=== PATIENT | female | born 1945 | race Caucasian/White ===

== ENCOUNTER 2018-10-22 17:28 | Inpatient (IN) | payer MEDICARE ==
[2018-10-22] MEDS ORDERED: MORPHINE SULFATE 2 MG/ML SYRINGE IVP STA (18:22)
[2018-10-22] MEDS ORDERED: ONDANSETRON 4 MG/2 ML VIAL IVP STA (18:22)
[2018-10-22 18:50] LABS: INR 1.5 (<1.2); Partial Thromboplastin Time 24.2 sec (22.0-30.0); Prothrombin Time 14.9 sec (9.0-12.0)
[2018-10-22 18:58] LABS: Anisocytosis Slight; Basophils % (A) 0 %; Eosinophils # (A) 0.1 k/uL (0-0.7); Eosinophils % (A) 2 %; HGB 11.7 gm/dL (11.4-16.0); Hypochromasia Moderate; Lymphocytes # (A) 0.9 k/uL (1.0-4.8); Lymphocytes % (A) 23 %; MCH 29.4 pg (25.0-35.0); MCHC 29.2 g/dL (31.0-37.0); MCV 100.7 fL (80.0-100.0); Macrocytosis Slight; Mean Platelet Volume 7.6; Monocytes # (A) 0.5 k/uL (0-1.0); Monocytes % (A) 13 %; Neutrophils # (A) 2.3 k/uL (1.3-7.7); Neutrophils % (A) 60 %; Platelet Count 114 k/uL (150-450); RBC 3.98 m/uL (3.80-5.40); RDW 17.7 % (11.5-15.5); WBC 3.9 k/uL (3.8-10.6)
[2018-10-22 19:01] LABS: Potassium 5.6 mmol/L (3.5-5.1); Total Bilirubin 1.7 mg/dL (0.2-1.3); Total Protein 6.8 g/dL (6.3-8.2)
[2018-10-22 19:12] LABS: Creatine Kinase MB 3.4 ng/mL (0.0-2.4); Troponin I 0.032 ng/mL (0.000-0.034)
[2018-10-22 19:15] LABS: Large Platelets Present
--- NOTE | 2018-10-22 20:08 | CT ---
EXAMINATION TYPE: CT abdomen pelvis wo con DATE OF EXAM: 10/22/2018 COMPARISON: None HISTORY: Right sided abdominal pain, history of liver cancer. CT DLP: 756.8 mGycm Automated exposure control for dose reduction was used. TECHNIQUE: Helical acquisition of images was performed from the lung bases through the pelvis. FINDINGS: Lung bases are clear. There is no pleural effusion. Heart size is normal. There is no pericardial eff usion. Liver is irregular and small. There is a 4 cm area of hypodensity in the subcapsular anterior right l obe of the liver. There is 2.5 cm hypodense area in the lateral right lobe. There is 3.5 cm hypodense mass in the subcapsular posterior right lobe of the liver. Spleen is intact. I see no evidence of a pancreatic mass. There is moderate ascites fluid. Gallbladder is absent. There is no adrenal mass. Kidneys have normal size and contour. There is no hydronephrosis. Ureters a re not dilated. There is no retroperitoneal adenopathy. Bladder distends smoothly. There is no inguin al hernia. There is a right-sided colostomy with parastomal hernia. There is mesenteric edema in the mid abdomen. There is no evidence of a bowel obstruction. I see no bony destructive process. There is spurring in the lumbar spine. IMPRESSION: LIVER IS SOMEWHAT SMALL AND IRREGULAR CONSISTENT WITH CIRRHOSIS. MULTIPLE LIVER MASSES. MODERATE ASCI KARINE. SMALL BOWEL MESENTERIC EDEMA. COLOSTOMY WITH PARASTOMAL HERNIA. NO EVIDENCE OF A BOWEL OBSTRUCTI ON.
[2018-10-22] MEDS ORDERED: IBUPROFEN 400 MG TAB PO PRN (22:20)
[2018-10-22] MEDS ORDERED: NALOXONE 0.4 MG/ML 1 ML VIAL IV PRN (22:20)
[2018-10-22] MEDS ORDERED: ONDANSETRON 4 MG/2 ML VIAL IVP PRN (22:20)
--- NOTE | 2018-10-22 22:20 | ED ---
Abdominal Pain HPI <Isrrael Finley - Last Filed: 10/22/18 22:38> - General Source: patient, family Mode of arrival: ambulatory Limitations: no limitations <Irene Machuca - Last Filed: 10/23/18 02:55> - General Chief Complaint: Abdominal Pain Stated Complaint: Abdominal Pain Time Seen by Provider: 10/22/18 17:44 - History of Present Illness Initial Comments: 73-year-old female with past nuchal history primary liver cancer, Type 2 diabetes, hypertension presenting today for chief complaint of diffuse abdominal pain. Pt states that since she began localized chemotherapy treatment she has been experiencing nausea, vomiting and generalized abdominal pain. Patient states that she was seen yesterday at [facility], for chief complaint of abdominal pain. She states after testing and symptomatic treatment experienced improvement however not resolution of symptoms and was discharged home. Pt states that pain persisted and she came to [facility] for treatment and evaluation. Pt states that the abdominal pain is diffuse , she cannot localize the pain. She admits to diarrhea since the localized chemotherapy. She states that her oncologist out of [facility] will begin systemic chemotherapy on the . Pt does not know the stage or name of treatments used previously. Upon arrival today pt admits to generalized abdominal pain, nausea and vomiting that began with the chemo treatment with no change in characteristic. Patient denies hematemesis, melena or hematochezia, calf pain, hemoptysis, lower extremity swelling. Pt admits to generalilzed weakness and fatigue. Remainder of ROS negative, patient denies any recent fever , chills, sputum production, shortness of breath, chest pain, back pain, numbness or tingling, dysuria or hematuria, constipation, headaches or visual changes, or any other complaints. Upon arrival patient's vital signs within normal limits. (Irene Machuca) - Related Data Home Medications Medication Instructions Recorded Confirmed Furosemide [Lasix] 40 mg PO DAILY 10/23/18 10/23/18 Lactulose [Cephulac] 30 gm PO BID 10/23/18 10/23/18 Metoprolol Tartrate [Lopressor] 12.5 mg PO DAILY 10/23/18 10/23/18 Omeprazole [PriLOSEC] 20 mg PO QID 10/23/18 10/23/18 Ondansetron HCl [Zofran] 8 mg PO PRN 10/23/18 Spironolactone 100 mg PO 10/23/18 Sucralfate [Carafate] 1 gm PO BID 10/23/18 10/23/18 clonazePAM 0.5 mg PO DAILY 10/23/18 10/23/18 Allergies Allergy/AdvReac Type Severity Reaction Status Date / Time GREG Inhibitors Allergy Cough Verified 10/22/18 23:26 amlodipine Allergy Rash/Hives Verified 10/23/18 01:25 oxycodone Allergy Rash/Hives Verified 10/23/18 01:25 Penicillins Allergy Rash/Hives Verified 10/22/18 17:42 hydromorphone [From Dilaudid] AdvReac Unknown Verified 10/22/18 17:42 sodium dodecyclbenzene Allergy Rash/Hives Uncoded 10/23/18 01:25 sulfonate Review of Systems ROS Other: All systems not noted in ROS Statement are negative. <Isrrael Finley - Last Filed: 10/22/18 22:38> ROS Other: All systems not noted in ROS Statement are negative. Constitutional: Denies: fever, chills, night sweats ENT: Denies: ear pain, throat pain Respiratory: Denies: cough, dyspnea, wheezes, hemoptysis, stridor Cardiovascular: Denies: chest pain, palpitations, dyspnea on exertion Endocrine: Reports: fatigue Gastrointestinal: Reports: abdominal pain, nausea, vomiting, diarrhea. Denies: constipation, hematemesis, melena, hematochezia Genitourinary: Denies: urgency, dysuria, frequency, hematuria Musculoskeletal: Denies: back pain Skin: Denies: rash, lesions Neurological: Reports: weakness. Denies: headache, numbness, paresthesias, confusion <Irene Machuca - Last Filed: 10/23/18 02:55> ROS Statement: Those systems with pertinent positive or pertinent negative responses have been documented in the HPI. Past Medical History Past Medical History: Cancer, Diabetes Mellitus, Hypertension, Liver Disease Additional Past Medical History / Comment(s): liver ca History of Any Multi-Drug Resistant Organisms: None Reported Past Surgical History: Bowel Resection Additional Past Surgical History / Comment(s): liver iliostomy Past Psychological History: Anxiety, Depression Smoking Status: Never smoker Past Alcohol Use History: None Reported Past Drug Use History: None Reported <Irene Machuca - Last Filed: 10/23/18 02:55> General Exam <Isrrael Finley - Last Filed: 10/22/18 22:38> Limitations: no limitations <Irene Machuca - Last Filed: 10/23/18 02:55> - General Exam Comments Initial Comments: General: The patient is awake and alert, in no distress, however patient appears uncomfortable Eye: +3 mm pupils are equal, round and reactive to light, extra-ocular movements are intact. No nystagmus. There is normal conjunctiva bilaterally. No signs of icterus. Ears, nose, mouth and throat: There are moist mucous membranes and no oral lesions. Neck: The neck is supple, there is no tenderness or JVD. Cardiovascular: There is a regular rate and rhythm. No murmur, rub or gallop is appreciated. Respiratory: Lungs are clear to auscultation, respirations are non-labored, breath sounds are equal. No wheezes, stridor, rales, or rhonchi. Gastrointestinal: No noted diaphoresis, jaundice, pallor, protecting postures or squirming. Symmetrical pigmentation of abdomen without signs of inflammation, [scars], or striae. Umbilicus mildline, inverted without swelling. No dilated veins. Abdomen contour obese, with noted abdominal distention. No visible masses. No peristalsis, aortic pulsations, or ventral hernia. Bowel sounds audible in all 4 quadrants, unremarkable. No friction rubs or venous hums. No epigastic, hepatic or abdominal bruits. Pt tender to deep palpation of the abdomen, poorly localized, diffuse. Ostomy bag in place, no erythema, or drainage noted. Liver edge, not palpable. Spleen edge, right and left kidney not palpable. Superior bladder margin non-tender. Special Testing: Negative Marion, Rovsing, McBurney, Mayelin, cutaneous hyperesthesia. Iliopsoas and obturator tests negative bilaterally. Negative Heel Jar test/ cristian sign. No CVA tenderness. Digital rectal exam deferred. Negative berumen turners or cullens sign Musculoskeletal: Normal ROM, no tenderness. Strength 5/5. Sensation intact. Pulses equal bilaterally 2+. Neurological: A&O x 3. CN II-XII intact, There are no obvious motor or sensory deficits. Coordination appears grossly intact. Speech is normal. Skin: Skin is warm and dry and no rashes or lesions are noted. Small area of ecchymosis noted on arms. Psychiatric: Cooperative, appropriate mood & affect, normal judgment. (Irene Machuca) Vital Signs 10/22/18 10/22/18 17:36 22:25 Temperature 98.7 F 98.2 F Pulse Rate 61 65 Respiratory 18 20 Rate Blood Pressure 107/79 111/60 O2 Sat by Pulse 100 100 Oximetry Medical Decision Making - Lab Data Result diagrams: 10/22/18 18:30 12 18:30 <Isrrael Finley - Last Filed: 10/22/18 22:38> - Lab Data Result diagrams: 10/22/18 18:30 10/22/18 18:30 <Irene Machuca - Last Filed: 10/23/18 02:55> - Medical Decision Making 73-year-old female history of liver cancer. Patient is presenting with abdominal pain. She is currently following him [facility] for her cancer treatment. She is presenting to this institution because she does not feel the care she was receiving is adequate and she is seeking a second opinion. She's had ongoing abdominal pain for some time. She also complains of generalized weakness and fatigue. She is uncertain of the stage of her cancer, she has received several doses of directed chemotherapy and is awaiting systemic chemotherapy later this month. Patient was offered transfer to [facility] for further evaluation, she declines, she states she would prefer to be admitted to this institution and prefer to follow with oncology here. She is admitted to internal medicine with oncology on consult. Records have been requested and are pending. (Isrrael Finley) 73yo female with history of primary liver cancer, of unknown grade/stage with nonspecific abdominal pain. Abdominal pain revealed diffuse pain. CT no acute findings, cancer redemonstrated. Pt does not feel she is receiving adequate treatment at current institution of care. Pt presents to [place] for second opinion. Pt pain chronic in nature, no acute changes. Correlation with chemotherapy treatments. Transfer to [facility] for further evaluation continuity of care was offered to patient, however pt insists on second opinion and would like admission at this institution. Pt admitted after case discussed in detail with Dr. Finley who evaluated pt [id number]. We requested pt information be transferred, still pending. Pt transferred to floor in stable condition. (Irene Machuca) - Lab Data Lab Results 10/22/18 10/22/18 10/22/18 Range/Units 00:15 18:30 18:30 WBC 3.9 (3.8-10.6) k/uL RBC 3.98 (3.80-5.40) m/uL Hgb 11.7 (11.4-16.0) gm/dL Hct 40.0 (34.0-46.0) % MCV 100.7 H (80.0-100.0) fL MCH 29.4 (25.0-35.0) pg MCHC 29.2 L (31.0-37.0) g/dL RDW 17.7 H (11.5-15.5) % Plt Count 114 L (150-450) k/uL Neutrophils % 60 % Lymphocytes % 23 % Monocytes % 13 % Eosinophils % 2 % Basophils % 0 % Neutrophils # 2.3 (1.3-7.7) k/uL Lymphocytes # 0.9 L (1.0-4.8) k/uL Monocytes # 0.5 (0-1.0) k/uL Eosinophils # 0.1 (0-0.7) k/uL Basophils # 0.0 (0-0.2) k/uL Manual Slide Review Performed Large Platelets Present Hypochromasia Moderate Anisocytosis Slight Macrocytosis Slight PT 14.9 H (9.0-12.0) sec INR 1.5 H (<1.2) APTT 24.2 (22.0-30.0) sec Sodium (137-145) mmol/L Potassium (3.5-5.1) mmol/L Chloride (98-107) mmol/L Carbon Dioxide (22-30) mmol/L Anion Gap mmol/L BUN (7-17) mg/dL Creatinine (0.52-1.04) mg/dL Est GFR (CKD-EPI)AfAm (>60 ml/min/1.73 sqM) Est GFR (CKD-EPI)NonAf (>60 ml/min/1.73 sqM) Glucose (74-99) mg/dL Calcium (8.4-10.2) mg/dL Total Bilirubin (0.2-1.3) mg/dL AST (14-36) U/L ALT (9-52) U/L Alkaline Phosphatase (38-126) U/L Total Creatine Kinase (30-135) U/L CK-MB (CK-2) (0.0-2.4) ng/mL CK-MB (CK-2) Rel Index Troponin I (0.000-0.034) ng/mL Total Protein (6.3-8.2) g/dL Albumin (3.5-5.0) g/dL Amylase (30-110) U/L Lipase (23-300) U/L Urine Color Yellow Urine Appearance Clear (Clear) Urine pH 5.0 (5.0-8.0) Ur Specific [place] 1.013 (1.001-1.035) Urine Protein Negative (Negative) Urine Glucose (UA) Negative (Negative) Urine Ketones Negative (Negative) Urine Blood Negative (Negative) Urine Nitrite Negative (Negative) Urine Bilirubin Negative (Negative) Urine Urobilinogen <2.0 (<2.0) mg/dL Ur Leukocyte Esterase Large H (Negative) Urine RBC 3 (0-5) /hpf Urine WBC 17 H (0-5) /hpf Ur Squamous Epith Cells 1 (0-4) /hpf Urine Bacteria Occasional H (None) /hpf Hyaline Casts 4 H (0-2) /lpf 10/22/18 10/22/18 Range/Units 18:30 18:30 WBC (3.8-10.6) k/uL RBC (3.80-5.40) m/uL Hgb (11.4-16.0) gm/dL Hct (34.0-46.0) % MCV (80.0-100.0) fL MCH (25.0-35.0) pg MCHC (31.0-37.0) g/dL RDW (11.5-15.5) % Plt Count (150-450) k/uL Neutrophils % % Lymphocytes % % Monocytes % % Eosinophils % % Basophils % % Neutrophils # (1.3-7.7) k/uL Lymphocytes # (1.0-4.8) k/uL Monocytes # (0-1.0) k/uL Eosinophils # (0-0.7) k/uL Basophils # (0-0.2) k/uL Manual Slide Review Large Platelets Hypochromasia Anisocytosis Macrocytosis PT (9.0-12.0) sec INR (<1.2) APTT (22.0-30.0) sec Sodium 135 L (137-145) mmol/L Potassium 5.6 H (3.5-5.1) mmol/L Chloride 104 (98-107) mmol/L Carbon Dioxide 23 (22-30) mmol/L Anion Gap 8 mmol/L BUN 33 H (7-17) mg/dL Creatinine 1.39 H (0.52-1.04) mg/dL Est GFR (CKD-EPI)AfAm 44 (>60 ml/min/1.73 sqM) Est GFR (CKD-EPI)NonAf 38 (>60 ml/min/1.73 sqM) Glucose 361 H (74-99) mg/dL Calcium 9.0 (8.4-10.2) mg/dL Total Bilirubin 1.7 H (0.2-1.3) mg/dL AST 41 H (14-36) U/L ALT 44 (9-52) U/L Alkaline Phosphatase 208 H (38-126) U/L Total Creatine Kinase 85 (30-135) U/L CK-MB (CK-2) 3.4 H (0.0-2.4) ng/mL CK-MB (CK-2) Rel Index 4.0 Troponin I 0.032 (0.000-0.034) ng/mL Total Protein 6.8 (6.3-8.2) g/dL Albumin 3.0 L (3.5-5.0) g/dL Amylase 56 (30-110) U/L Lipase 56 (23-300) U/L Urine Color Urine Appearance (Clear) Urine pH (5.0-8.0) Ur Specific [place] (1.001-1.035) Urine Protein (Negative) Urine Glucose (UA) (Negative) Urine Ketones (Negative) Urine Blood (Negative) Urine Nitrite (Negative) Urine Bilirubin (Negative) Urine Urobilinogen (<2.0) mg/dL Ur Leukocyte Esterase (Negative) Urine RBC (0-5) /hpf Urine WBC (0-5) /hpf Ur Squamous Epith Cells (0-4) /hpf Urine Bacteria (None) /hpf Hyaline Casts (0-2) /lpf Disposition <Isrrael Finley - Last Filed: 10/22/18 22:38> Is patient prescribed a controlled substance at d/c from ED?: No Time of Disposition: 22:20 Decision to Admit Reason: Admit from EC Decision Date: 10/22/18 Decision Time: 22:20 <Irene Machuca - Last Filed: 10/23/18 02:55> Clinical Impression: Intractable pain Disposition: ADMITTED IP TO THIS HOSP Condition: Stable
[2018-10-22] MEDS: MORPHINE SULFATE 4 MG/ML SYRINGE IV PRN (23:04)
[2018-10-22] MEDS: SODIUM CHLORIDE 0.9% 1,000 ML IV SCH (23:30)
[2018-10-23 00:28] LABS: Appearance,Urine Clear (Clear); Bacteria,Urine Occasional /hpf; Bilirubin,Urine Negative (Negative); Blood,Urine Negative (Negative); Color,Urine Yellow; Glucose,Urine (UA) Negative (Negative); Hyaline Casts,Urine 4 /lpf (0-2); Ketones,Urine Negative (Negative); Leukocyte Esterase,Urine Large (Negative); Nitrite,Urine Negative (Negative); Protein,Urine Negative (Negative); RBC,Urine 3 /hpf (0-5); Specific Gravity,Urine 1.013 (1.001-1.035); Squamous Epithelial Cell,Urine 1 /hpf (0-4); Urobilinogen,Urine <2.0 mg/dL (<2.0)
[2018-10-23] MEDS: MORPHINE SULFATE 4 MG/ML SYRINGE IV PRN ×5 (03:19→21:09)
[2018-10-23] MEDS ORDERED: FUROSEMIDE 40 MG TAB PO SCH (09:00)
[2018-10-23 10:30] LABS: Albumin 2.6 g/dL (3.5-5.0); Calcium 8.3 mg/dL (8.4-10.2); Potassium 4.8 mmol/L (3.5-5.1); Total Bilirubin 1.9 mg/dL (0.2-1.3); Total Protein 6.2 g/dL (6.3-8.2)
--- NOTE | 2018-10-23 10:36 | P.HPIM ---
History of Present Illness H&P Date: 10/23/18 Chief Complaint: Abdominal pain This is a 73-year-old female patient of Dr. Kurtz. Patient presented to the emergency room with complaints of abdominal pain with nausea vomiting and diarrhea. Patient does have a known past medical history of Primary liver cancer in which she has received last chemotherapy, hypertension, diverticulitis with ileostomy placement and diabetes mellitus. CT of abdomen and pelvis completed showing liver that is somewhat small and irregular consistent with cirrhosis. Multiple liver masses. Moderate ascites. Small bowel mesenteric edema. Colostomy with parastomal hernia. No evidence of bowel obstruction. CT completed showing sinus bradycardia with premature atrial complexes. Left axis deviation. Right bundle branch block. patient has been consulted for oncology services. Morphine has been ordered for pain control. Home meds resumed. Lasix and Aldactone currently on hold due to acute kidney injury. Will reassess lab work. UA positive for leukocyte esterase. Will start Cipro antibiotic. Urine culture ordered. At this time patient denies chest pain or shortness of breath. Patient denies nausea vomiting or diarrhea. Patient denies any urinary burning or frequency. Review of Systems please refer to HPI otherwise unremarkable Past Medical History Past Medical History: Cancer, Diabetes Mellitus, Hypertension, Liver Disease Additional Past Medical History / Comment(s): liver ca History of Any Multi-Drug Resistant Organisms: None Reported Past Surgical History: Bowel Resection Additional Past Surgical History / Comment(s): liver iliostomy Past Anesthesia/Blood Transfusion Reactions: No Reported Reaction Past Psychological History: Anxiety, Depression Smoking Status: Never smoker Past Alcohol Use History: None Reported Past Drug Use History: None Reported - Past Family History Mother History Unknown: Yes Family Medical History: Congestive Heart Failure (CHF) Medications and Allergies Home Medications Medication Instructions Recorded Confirmed Type Furosemide [Lasix] 40 mg PO DAILY 10/23/18 10/23/18 History Lactulose [Cephulac] 30 gm PO BID 10/23/18 10/23/18 History Metoprolol Tartrate [Lopressor] 12.5 mg PO DAILY 10/23/18 10/23/18 History Omeprazole [PriLOSEC] 20 mg PO QID 10/23/18 10/23/18 History Ondansetron HCl [Zofran] 8 mg PO PRN 10/23/18 History Spironolactone 100 mg PO 10/23/18 History Sucralfate [Carafate] 1 gm PO BID 10/23/18 10/23/18 History clonazePAM 0.5 mg PO DAILY 10/23/18 10/23/18 History Allergies Allergy/AdvReac Type Severity Reaction Status Date / Time GREG Inhibitors Allergy Cough Verified 10/23/18 09:23 amlodipine Allergy Rash/Hives Verified 10/23/18 09:23 oxycodone Allergy Rash/Hives Verified 10/23/18 09:23 Penicillins Allergy Rash/Hives Verified 10/23/18 09:23 hydromorphone [From Dilaudid] AdvReac Unknown Verified 10/23/18 09:23 sodium dodecyclbenzene Allergy Rash/Hives Uncoded 10/23/18 01:25 sulfonate Physical Exam Vitals: Vital Signs Temp Pulse Pulse Resp BP BP Pulse Ox 10/23/18 05:00 98.5 F 60 16 100/62 98 10/23/18 00:00 62 10/22/18 22:50 97.6 F 62 14 147/73 99 10/22/18 22:25 98.2 F 65 20 111/60 100 10/22/18 17:36 98.7 F 61 18 107/79 100 Intake and Output 10/22/18 10/23/18 10/23/18 22:59 06:59 14:59 Intake Total 840 Balance 840 Intake: Intake, IV Titration 600 Amount Sodium Chloride 0.9% 1, 600 000 ml @ 75 mls/hr IV . [id number] Rx#:[id number] Oral 240 Other: Voiding Method Toilet # Voids 2 # Bowel Movements 1 Weight 90.718 kg Head normocephalic Neck supple Lungs clear to auscultation bilaterally no wheezing or crackles Heart regular rate and rhythm S1-S2, no rub or gallop Abdomen is soft nontender nondistended positive bowel sounds no hepatosplenomegaly. Ileostomy in place Extremities no edema Neuro alert and orientated to 3 Results CBC & Chem 7: 10/22/18 18:30 10/22/18 18:30 Labs: Abnormal Lab Results - Last 24 Hours (Table) 10/22/18 10/22/18 10/22/18 Range/Units 00:15 18:30 18:30 MCV 100.7 H (80.0-100.0) fL MCHC 29.2 L (31.0-37.0) g/dL RDW 17.7 H (11.5-15.5) % Plt Count 114 L (150-450) k/uL Lymphocytes # 0.9 L (1.0-4.8) k/uL PT 14.9 H (9.0-12.0) sec INR 1.5 H (<1.2) Sodium (137-145) mmol/L Potassium (3.5-5.1) mmol/L BUN (7-17) mg/dL Creatinine (0.52-1.04) mg/dL Glucose (74-99) mg/dL Total Bilirubin (0.2-1.3) mg/dL AST (14-36) U/L Alkaline Phosphatase (38-126) U/L CK-MB (CK-2) (0.0-2.4) ng/mL Albumin (3.5-5.0) g/dL Ur Leukocyte Esterase Large H (Negative) Urine WBC 17 H (0-5) /hpf Urine Bacteria Occasional H (None) /hpf Hyaline Casts 4 H (0-2) /lpf 10/22/18 10/22/18 Range/Units 18:30 18:30 MCV (80.0-100.0) fL MCHC (31.0-37.0) g/dL RDW (11.5-15.5) % Plt Count (150-450) k/uL Lymphocytes # (1.0-4.8) k/uL PT (9.0-12.0) sec INR (<1.2) Sodium 135 L (137-145) mmol/L Potassium 5.6 H (3.5-5.1) mmol/L BUN 33 H (7-17) mg/dL Creatinine 1.39 H (0.52-1.04) mg/dL Glucose 361 H (74-99) mg/dL Total Bilirubin 1.7 H (0.2-1.3) mg/dL AST 41 H (14-36) U/L Alkaline Phosphatase 208 H (38-126) U/L CK-MB (CK-2) 3.4 H (0.0-2.4) ng/mL Albumin 3.0 L (3.5-5.0) g/dL Ur Leukocyte Esterase (Negative) Urine WBC (0-5) /hpf Urine Bacteria (None) /hpf Hyaline Casts (0-2) /lpf Microbiology - Last 24 Hours (Table) 10/22/18 00:15 Urine Culture - Preliminary Urine,Voided Thrombosis Risk Factor Assmnt - Choose All That Apply Each Factor Represents 1 point: Obesity (BMI >25) Each Risk Factor Represents 2 Points: Age 61-74 years Other congenital or acquired thrombophilia - If yes, enter type in comment: No Thrombosis Risk Factor Assessment Total Risk Factor Score: 3 Thrombosis Risk Factor Assessment Level: Moderate Risk Assessment and Plan Assessment: 1. Abdominal pain with nausea vomiting diarrhea. C. diff negative. Abdominal pelvis CT showing a liver that is somewhat small and irregular consistent with cirrhosis. Multiple liver masses. Moderate ascites. Small bowel mesenteric edema. Colostomy with parastomal hernia. No evidence of bowel obstruction. Stool culture has been ordered. currently on morphine for pain control 2. Urinary tract infection with positive for leukocyte esterase. Patient started on Cipro. Urine culture ordered 3. Acute kidney injury. Initial creatinine 1.39 and bun 33. Labs have been reordered 4. Hyperkalemia. Potassium 5.6. Will recheck and correct if needed 5. Primary liver cancer. Patient has been getting chemotherapy to [facility] but is planning to switch to local oncologist. Dr. Yadav has been consulted 6. Essential hypertension. Home meds resumed with parameters. Aldactone currently on hold due to hyperkalemia and acute kidney injury 7. Anemia. Elevated MCV. Will order folate and B12 levels 8. Diabetes mellitus. She does not currently take any diabetes medication. Blood sugars elevated 200s sliding scale insulin has been ordered including an A1c will be ordered DVT prophylaxis heparin. GI prophylaxis Protonix. Time with Patient: Greater than 30 (Greater than 60% of the total time spent in counseling and coordination of care. I performed an examination of the patient and discussed their management with the Nurse Practitioner. I have reviewed the Nurse Practitioner's notes and agree with the documented findings and plan of care)
[2018-10-23 10:53] LABS: Anisocytosis Slight; Basophils % (A) 0 %; Eosinophils # (A) 0.1 k/uL (0-0.7); Eosinophils % (A) 4 %; HGB 11.8 gm/dL (11.4-16.0); Hypochromasia Slight; Lymphocytes # (A) 0.9 k/uL (1.0-4.8); Lymphocytes % (A) 29 %; MCH 30.4 pg (25.0-35.0); MCHC 31.8 g/dL (31.0-37.0); Macrocytosis Slight; Mean Platelet Volume 8.6; Monocytes # (A) 0.4 k/uL (0-1.0); Monocytes % (A) 11 %; Neutrophils # (A) 1.7 k/uL (1.3-7.7); Neutrophils % (A) 54 %; RBC 3.88 m/uL (3.80-5.40); RDW 17.6 % (11.5-15.5); WBC 3.2 k/uL (3.8-10.6)
[2018-10-23 10:56] LABS: MCV 95.4 fL (80.0-100.0)
[2018-10-23 10:58] LABS: Glucose,Whole Blood 307 mg/dL (75-99)
[2018-10-23 12:11] LABS: Platelet Count 99 k/uL (150-450)
[2018-10-23] MEDS: METOPROLOL TARTRATE 12.5 MG TAB PO SCH (12:13)
[2018-10-23] MEDS: PANTOPRAZOLE 40 MG TABLET PO SCH ×2 (12:13→16:02)
[2018-10-23] MEDS: CIPROFLOXACIN HCL 500 MG TAB PO SCH (12:13)
[2018-10-23] MEDS: clonazePAM 0.5 MG TAB PO SCH (12:14)
[2018-10-23] MEDS: LACTULOSE 20 GM/30 ML CUP PO SCH ×2 (12:14→21:09)
[2018-10-23] MEDS: SUCRALFATE 1 GM TAB PO SCH ×2 (12:15→21:09)
--- NOTE | 2018-10-23 12:16 | P.CONS ---
History of Present Illness - Reason for Consult Consult date: 10/23/18 Liver lesions Requesting physician: Artemio Lea - Chief Complaint Abdominal pain - History of Present Illness Ms. Keenan is a very pleasant 73-year-old female with history of primary liver cancer diagnosed in 2010 as well as a history of diabetes and cirrhosis and colectomy with ileostomy in 2010 for diverticulitis, who is here for abdominal pain. She states that she was diagnosed with a primary liver malignancy back in 2010. Has not seen a medical oncologist in the past however has been seeing a physician for chemo embolization treatments at [facility]. She received a chemoembolization treatment in 2010 upon diagnosis, as well as in 2014 and more recently on 10/03/18. She was feeling well however started having abdominal discomfort in the right upper quadrant mostly about a week ago. Went to [facility] however she was not satisfied with her care and was discharged when her pain improved however recurred the next day. She ended up coming here and is wanting to start to follow with medical oncology team here. She has not received any systemic treatment for her malignancy. Records have been requested but not obtained yet. She also has some mild nausea but otherwise is doing well without any fevers, vomiting, diarrhea, fatigue, or weight loss. No other significant complaints. No smoking, alcohol, or drug use. No known family history of malignancy. Review of Systems All systems: negative Constitutional: Reports as per HPI Past Medical History Past Medical History: Cancer, Diabetes Mellitus, Hypertension, Liver Disease Additional Past Medical History / Comment(s): liver ca History of Any Multi-Drug Resistant Organisms: None Reported Past Surgical History: Bowel Resection Additional Past Surgical History / Comment(s): liver iliostomy Past Anesthesia/Blood Transfusion Reactions: No Reported Reaction Past Psychological History: Anxiety, Depression Smoking Status: Never smoker Past Alcohol Use History: None Reported Past Drug Use History: None Reported - Past Family History Mother History Unknown: Yes Family Medical History: Congestive Heart Failure (CHF) Medications and Allergies Home Medications Medication Instructions Recorded Confirmed Type Furosemide [Lasix] 40 mg PO DAILY 10/23/18 10/23/18 History Lactulose [Cephulac] 30 gm PO BID 10/23/18 10/23/18 History Metoprolol Tartrate [Lopressor] 12.5 mg PO DAILY 10/23/18 10/23/18 History Omeprazole [PriLOSEC] 20 mg PO QID 10/23/18 10/23/18 History Ondansetron HCl [Zofran] 8 mg PO PRN 10/23/18 History Spironolactone 100 mg PO 10/23/18 History Sucralfate [Carafate] 1 gm PO BID 10/23/18 10/23/18 History clonazePAM 0.5 mg PO DAILY 10/23/18 10/23/18 History Allergies Allergy/AdvReac Type Severity Reaction Status Date / Time GREG Inhibitors Allergy Cough Verified 10/23/18 09:23 amlodipine Allergy Rash/Hives Verified 10/23/18 09:23 oxycodone Allergy Rash/Hives Verified 10/23/18 09:23 Penicillins Allergy Rash/Hives Verified 10/23/18 09:23 hydromorphone [From Dilaudid] AdvReac Unknown Verified 10/23/18 09:23 sodium dodecyclbenzene Allergy Rash/Hives Uncoded 10/23/18 01:25 sulfonate Physical Exam Vitals: Vital Signs Temp Pulse Pulse Resp BP BP Pulse Ox 10/23/18 05:00 98.5 F 60 16 100/62 98 10/23/18 00:00 62 10/22/18 22:50 97.6 F 62 14 147/73 99 10/22/18 22:25 98.2 F 65 20 111/60 100 10/22/18 17:36 98.7 F 61 18 107/79 100 Intake and Output 10/22/18 10/23/18 10/23/18 22:59 06:59 14:59 Intake Total 840 Balance 840 Intake: Intake, IV Titration 600 Amount Sodium Chloride 0.9% 1, 600 000 ml @ 75 mls/hr IV . [id number] [facility] Rx#:[id number] Oral 240 Other: Voiding Method Toilet # Voids 2 # Bowel Movements 1 Weight 90.718 kg General: In no acute distress. HEENT: Mucosa moist. Neck: Neck supple. Lymph: No cervical/supraclavicular LAD. Lungs: CTA-B without wheezing or rhonchi. Heart: RRR. No LE edema. Abdomen: Soft, nondistended, with positive bowel sounds. Ileostomy. Slight tenderness in RUQ without guarding or rigidity. Fluid shift with bulging flanks. MSK: 4/4 strength in all 4 extremities. Neuro: Alert and oriented 3. No obvious gross neurologic deficits. Skin: No jaundice or rash. Psych: Appropriate affect. Results CBC & Chem 7: 10/23/18 09:58 10/23/18 09:58 Labs: Abnormal Lab Results - Last 24 Hours (Table) 10/22/18 10/22/18 10/22/18 Range/Units 00:15 18:30 18:30 WBC (3.8-10.6) k/uL MCV 100.7 H (80.0-100.0) fL MCHC 29.2 L (31.0-37.0) g/dL RDW 17.7 H (11.5-15.5) % Plt Count 114 L (150-450) k/uL Lymphocytes # 0.9 L (1.0-4.8) k/uL PT 14.9 H (9.0-12.0) sec INR 1.5 H (<1.2) Sodium (137-145) mmol/L Potassium (3.5-5.1) mmol/L Chloride (98-107) mmol/L Carbon Dioxide (22-30) mmol/L BUN (7-17) mg/dL Creatinine (0.52-1.04) mg/dL Glucose (74-99) mg/dL POC Glucose (mg/dL) (75-99) mg/dL Calcium (8.4-10.2) mg/dL Total Bilirubin (0.2-1.3) mg/dL AST (14-36) U/L Alkaline Phosphatase (38-126) U/L CK-MB (CK-2) (0.0-2.4) ng/mL Total Protein (6.3-8.2) g/dL Albumin (3.5-5.0) g/dL Ur Leukocyte Esterase Large H (Negative) Urine WBC 17 H (0-5) /hpf Urine Bacteria Occasional H (None) /hpf Hyaline Casts 4 H (0-2) /lpf 10/22/18 10/22/18 10/23/18 Range/Units 18:30 18:30 09:58 WBC 3.2 L (3.8-10.6) k/uL MCV (80.0-100.0) fL MCHC (31.0-37.0) g/dL RDW 17.6 H (11.5-15.5) % Plt Count (150-450) k/uL Lymphocytes # (1.0-4.8) k/uL PT (9.0-12.0) sec INR (<1.2) Sodium 135 L (137-145) mmol/L Potassium 5.6 H (3.5-5.1) mmol/L Chloride (98-107) mmol/L Carbon Dioxide (22-30) mmol/L BUN 33 H (7-17) mg/dL Creatinine 1.39 H (0.52-1.04) mg/dL Glucose 361 H (74-99) mg/dL POC Glucose (mg/dL) (75-99) mg/dL Calcium (8.4-10.2) mg/dL Total Bilirubin 1.7 H (0.2-1.3) mg/dL AST 41 H (14-36) U/L Alkaline Phosphatase 208 H (38-126) U/L CK-MB (CK-2) 3.4 H (0.0-2.4) ng/mL Total Protein (6.3-8.2) g/dL Albumin 3.0 L (3.5-5.0) g/dL Ur Leukocyte Esterase (Negative) Urine WBC (0-5) /hpf Urine Bacteria (None) /hpf Hyaline Casts (0-2) /lpf 18 10/23/18 Range/Units 09:58 10:56 WBC (3.8-10.6) k/uL MCV (80.0-100.0) fL MCHC (31.0-37.0) g/dL RDW (11.5-15.5) % Plt Count (150-450) k/uL Lymphocytes # (1.0-4.8) k/uL PT (9.0-12.0) sec INR (<1.2) Sodium 135 L (137-145) mmol/L Potassium (3.5-5.1) mmol/L Chloride 109 H (98-107) mmol/L Carbon Dioxide 20 L (22-30) mmol/L BUN 27 H (7-17) mg/dL Creatinine (0.52-1.04) mg/dL Glucose 215 H (74-99) mg/dL POC Glucose (mg/dL) 307 H (75-99) mg/dL Calcium 8.3 L (8.4-10.2) mg/dL Total Bilirubin 1.9 H (0.2-1.3) mg/dL AST 52 H (14-36) U/L Alkaline Phosphatase 178 H (38-126) U/L CK-MB (CK-2) (0.0-2.4) ng/mL Total Protein 6.2 L (6.3-8.2) g/dL Albumin 2.6 L (3.5-5.0) g/dL Ur Leukocyte Esterase (Negative) Urine WBC (0-5) /hpf Urine Bacteria (None) /hpf Hyaline Casts (0-2) /lpf Microbiology - Last 24 Hours (Table) 10/22/18 00:15 Urine Culture - Preliminary Urine,Voided CT scan - abdomen: report reviewed CT scan - pelvis: report reviewed Assessment and Plan Assessment: 1. Liver lesions with history of primary liver cancer per pt and family 2. Ileostomy due to diverticulitis per pt and family, no malignancy found 3. Abdominal pain 4. MORENA, improving 5. UTI, on oral antibiotics 6. Mild thrombocytopenia, likely due to cirrhosis 7. Cirrhosis on CT Plan: Ms. Keenan is a very pleasant 73-year-old female with a history per patient and family ileostomy due to diverticulitis (pt and family state no cancer was found in the colon; in 2010), cirrhosis (denies any alcohol use in the past, ?BAITSTA?), DM, and primary liver cancer diagnosed in 2010, status post chemoembolization 3 , 2010, 2014, and most recently on 10/03/18. Here for increased abdominal pain and nausea for the past week. CT of the abdomen and pelvis in the ER shows multiple liver lesions (4cm lesion, 2.5cm lesion, and 3cm lesion). Admitted for pain control and oncology evaluation. Workup also revealed a creatinine of 1.4, potassium 5.8, and possible UTI on UA. Creatinine and potassium improved with hydration in patient started on oral antibiotics for a possible UTI. Records were requested however not yet obtained. Patient wants to follow with oncology team here. For now we'll plan on pain control. Will work on obtaining records. It does not sound like she has been on any systemic therapy although currently does not seem to be a candidate for further chemoembolization due to multiple of her lesions. Will plan on obtaining tumor markers and consider CT chest to complete staging work up if not done per records. We'll plan on an ultrasound- guided paracentesis per patient request. She does have signs of possible ascites on exam although CT does not comment on presence or absence of ascites. Further recommendations to follow. Discussed plan with the patient and her family at bedside, including son and [id number]. All of their questions were answered and they were agreeable to the plan.
[2018-10-23] MEDS: INSULIN ASPART 100 UNIT/ML 1 ML 10 ML VIAL SQ SCH ×3 (12:33→21:08)
[2018-10-23 16:49] LABS: Glucose,Whole Blood 283 mg/dL (75-99)
[2018-10-23 20:15] LABS: Glucose,Whole Blood 237 mg/dL (75-99)
[2018-10-23] MEDS: HEPARIN SODIUM,PORCINE 5,000 UNIT/ML 1 ML VIAL SQ SCH (21:08)
[2018-10-23] MEDS: SODIUM CHLORIDE 0.9% 1,000 ML IV SCH (22:59)
[2018-10-24] MEDS: MORPHINE SULFATE 4 MG/ML SYRINGE IV PRN ×3 (01:45→11:11)
[2018-10-24] MEDS: SODIUM CHLORIDE 0.9% 1,000 ML IV SCH ×3 (03:19→23:59)
[2018-10-24 07:03] LABS: Glucose,Whole Blood 211 mg/dL (75-99)
[2018-10-24 08:22] LABS: Anisocytosis Slight; Basophils % (A) 0 %; Eosinophils # (A) 0.2 k/uL (0-0.7); Eosinophils % (A) 6 %; HCT 37.1 % (34.0-46.0); HGB 11.5 gm/dL (11.4-16.0); Hypochromasia Moderate; Lymphocytes # (A) 0.9 k/uL (1.0-4.8); Lymphocytes % (A) 25 %; MCH 29.9 pg (25.0-35.0); MCV 96.6 fL (80.0-100.0); Macrocytosis Slight; Mean Platelet Volume 8.2; Monocytes # (A) 0.3 k/uL (0-1.0); Monocytes % (A) 10 %; Neutrophils % (A) 57 %; RBC 3.84 m/uL (3.80-5.40); RDW 17.3 % (11.5-15.5); WBC 3.6 k/uL (3.8-10.6)
[2018-10-24 08:34] LABS: Platelet Count 86 k/uL (150-450)
[2018-10-24] MEDS: SUCRALFATE 1 GM TAB PO SCH ×2 (08:43→20:16)
[2018-10-24] MEDS: METOPROLOL TARTRATE 12.5 MG TAB PO SCH (08:43)
[2018-10-24] MEDS: LACTULOSE 20 GM/30 ML CUP PO SCH ×2 (08:43→20:12)
[2018-10-24 08:44] LABS: Albumin 2.6 g/dL (3.5-5.0); Calcium 8.2 mg/dL (8.4-10.2); Potassium 4.6 mmol/L (3.5-5.1); Total Bilirubin 1.5 mg/dL (0.2-1.3); Total Protein 6.1 g/dL (6.3-8.2)
[2018-10-24] MEDS: HEPARIN SODIUM,PORCINE 5,000 UNIT/ML 1 ML VIAL SQ SCH (08:44)
[2018-10-24] MEDS: FUROSEMIDE 40 MG TAB PO SCH (08:44)
[2018-10-24] MEDS: PANTOPRAZOLE 40 MG TABLET PO SCH ×2 (08:44→17:44)
[2018-10-24] MEDS: CIPROFLOXACIN HCL 500 MG TAB PO SCH (08:44)
[2018-10-24] MEDS: clonazePAM 0.5 MG TAB PO SCH (08:48)
[2018-10-24] MEDS: INSULIN ASPART 100 UNIT/ML 1 ML 10 ML VIAL SQ SCH ×2 (08:48→13:32)
[2018-10-24 10:16] LABS: Hemoglobin A1C 7.5 % (4.0-6.0)
[2018-10-24 11:38] LABS: Glucose,Whole Blood 359 mg/dL (75-99)
--- NOTE | 2018-10-24 11:41 | P.PN ---
Subjective Progress Note Date: 10/24/18 This is a 73-year-old female patient of Dr. Kurtz. Patient presented to the emergency room with complaints of abdominal pain with nausea vomiting and diarrhea. Patient does have a known past medical history of Primary liver cancer in which she has received last chemotherapy, hypertension, diverticulitis with ileostomy placement and diabetes mellitus. CT of abdomen and pelvis completed showing liver that is somewhat small and irregular consistent with cirrhosis. Multiple liver masses. Moderate ascites. Small bowel mesenteric edema. Colostomy with parastomal hernia. No evidence of bowel obstruction. CT completed showing sinus bradycardia with premature atrial complexes. Left axis deviation. Right bundle branch block. patient has been consulted for oncology services. Morphine has been ordered for pain control. Home meds resumed. Lasix and Aldactone currently on hold due to acute kidney injury. Will reassess lab work. UA positive for leukocyte esterase. Will start Cipro antibiotic. Urine culture ordered. At this time patient denies chest pain or shortness of breath. Patient denies nausea vomiting or diarrhea. Patient denies any urinary burning or frequency. On 10/24/2018 patient is currently resting in bed. Patient was seen by oncology services. Patient remains on Cipro for UTI. Patient is still complaining of some abdominal discomfort. At this time patient denies chest pain or shortness of breath. Patient denies nausea vomiting or diarrhea. Patient denies any urinary burning or frequency Objective - Vital Signs Vital signs: Vital Signs Temp 98.3 F 10/24/18 05:00 Pulse 63 10/24/18 08:00 Resp 18 10/24/18 08:00 BP 99/50 10/24/18 05:00 Pulse Ox 96 10/24/18 05:00 Intake & Output 10/23/18 10/24/18 10/24/18 18:59 06:59 18:59 Other: Voiding Method Toilet Toilet # Voids 2 - Exam Head normocephalic Neck supple Lungs clear to auscultation bilaterally no wheezing or crackles Heart regular rate and rhythm S1-S2, no rub or gallop Abdomen is soft nontender nondistended positive bowel sounds no hepatosplenomegaly. Right lower quadrant ileostomy in place no signs of erythema. Some tenderness to palpation around stoma Extremities no edema Neuro alert and orientated to 3 - Labs CBC & Chem 7: 10/24/18 07:51 10/24/18 07:51 Labs: Abnormal Lab Results - Last 24 Hours (Table) 10/22/18 10/23/18 10/23/18 Range/Units 18:30 09:58 09:58 WBC 3.2 L (3.8-10.6) k/uL RDW 17.6 H (11.5-15.5) % Plt Count 99 L (150-450) k/uL Lymphocytes # 0.9 L (1.0-4.8) k/uL Sodium (137-145) mmol/L Carbon Dioxide (22-30) mmol/L Glucose (74-99) mg/dL POC Glucose (mg/dL) (75-99) mg/dL Hemoglobin A1c 7.5 H (4.0-6.0) % Calcium (8.4-10.2) mg/dL Total Bilirubin (0.2-1.3) mg/dL AST (14-36) U/L ALT (9-52) U/L Alkaline Phosphatase (38-126) U/L Total Protein (6.3-8.2) g/dL Albumin (3.5-5.0) g/dL Vitamin B12 1270.0 H (200.0-944.0) pg/mL 10/23/18 10/23/18 10/24/18 Range/Units 16:39 20:14 07:02 WBC (3.8-10.6) k/uL RDW (11.5-15.5) % Plt Count (150-450) k/uL Lymphocytes # (1.0-4.8) k/uL Sodium (137-145) mmol/L Carbon Dioxide (22-30) mmol/L Glucose (74-99) mg/dL POC Glucose (mg/dL) 283 H 237 H 211 H (75-99) mg/dL Hemoglobin A1c (4.0-6.0) % Calcium (8.4-10.2) mg/dL Total Bilirubin (0.2-1.3) mg/dL AST (14-36) U/L ALT (9-52) U/L Alkaline Phosphatase (38-126) U/L Total Protein (6.3-8.2) g/dL Albumin (3.5-5.0) g/dL Vitamin B12 (200.0-944.0) pg/mL 10/24/18 10/24/18 Range/Units 07:51 07:51 WBC 3.6 L (3.8-10.6) k/uL RDW 17.3 H (11.5-15.5) % Plt Count 86 L (150-450) k/uL Lymphocytes # 0.9 L (1.0-4.8) k/uL Sodium 133 L (137-145) mmol/L Carbon Dioxide 21 L (22-30) mmol/L Glucose 234 H (74-99) mg/dL POC Glucose (mg/dL) (75-99) mg/dL Hemoglobin A1c (4.0-6.0) % Calcium 8.2 L (8.4-10.2) mg/dL Total Bilirubin 1.5 H (0.2-1.3) mg/dL AST 48 H (14-36) U/L ALT 53 H (9-52) U/L Alkaline Phosphatase 219 H (38-126) U/L Total Protein 6.1 L (6.3-8.2) g/dL Albumin 2.6 L (3.5-5.0) g/dL Vitamin B12 (200.0-944.0) pg/mL Microbiology - Last 24 Hours (Table) 10/23/18 18:00 Stool Culture - Preliminary Stool 10/22/18 00:15 Urine Culture - Preliminary Urine,Voided Assessment and Plan Assessment: 1. Abdominal pain with nausea vomiting diarrhea. C. diff negative. Abdominal pelvis CT showing a liver that is somewhat small and irregular consistent with cirrhosis. Multiple liver masses. Moderate ascites. Small bowel mesenteric edema. Colostomy with parastomal hernia. No evidence of bowel obstruction. Stool culture has been ordered. currently on morphine for pain control 2. Urinary tract infection with positive for leukocyte esterase. Patient started on Cipro. Urine culture ordered 3. Acute kidney injury. Initial creatinine 1.39 and bun 33. Labs have been reordered. Resolved 4. Hyperkalemia. Potassium 5.6. Will recheck and correct if needed. Potassium 4.6 5. Primary liver cancer. Patient has been getting chemotherapy to [facility] but is planning to switch to local oncologist. Per oncology services obtaining records from plan: Plan on obtaining tumor markers and considering CT chest to complete staging workup 6. Essential hypertension. Home meds resumed with parameters. Aldactone currently on hold due to hyperkalemia and acute kidney injury 7. Anemia. Elevated MCV. Will order folate and B12 levels. I'm and B12 level elevated at 1270 8. Diabetes mellitus. She does not currently take any diabetes medication. Blood sugars elevated 200s sliding scale insulin has been ordered including an A1c will be ordered. Hemoglobin A1c 7.5 9. Thrombocytopenia platelets dropping to 86. DVT prophylaxis DC'd will order SCDs at this time. Oncology services are following 10. Diarrhea. C. diff negative. Stool cultures ordered 11. Elevated liver enzymes likely due to liver cancer. Alkaline phosphatase 219, ALT 53 and AST 48 total bilirubin also elevated at 1.5. Oncology services are following DVT prophylaxis SCDs due to thrombocythemia. GI prophylaxis Protonix. I performed an examination of the patient and discussed their management with the Nurse Practitioner. I have reviewed the Nurse Practitioner's notes and agree with the documented findings and plan of care
[2018-10-24] MEDS ORDERED: MORPHINE SULFATE 2 MG/ML SYRINGE IV PRN (14:49)
[2018-10-24 16:46] LABS: Glucose,Whole Blood 297 mg/dL (75-99)
[2018-10-24 17:29] LABS: Alpha Fetoprotein, Tumor Mkr <2.5 ng/mL (0.0-7.9)
[2018-10-24] MEDS: DICYCLOMINE 10 MG CAP PO SCH ×2 (17:43→20:17)
--- NOTE | 2018-10-24 18:06 | P.PN ---
Subjective Progress Note Date: 10/24/18 Principal diagnosis: Intractable abd pain Pt seen today in f/u, he abd pain is a little better now that her stoma is putting out more stool, no blood, cramping, dark urine or itching at this time. She is tolerating oral intake Objective - Vital Signs Vital signs: Vital Signs Temp 98 F 10/24/18 12:04 Pulse 54 L 10/24/18 16:00 Resp 16 10/24/18 16:00 BP 108/54 10/24/18 12:04 Pulse Ox 100 10/24/18 12:04 Intake & Output 10/23/18 10/24/18 10/24/18 18:59 06:59 18:59 Intake Total 640 Balance 640 Intake: Intake, IV Titration 640 Amount Sodium Chloride 0.9% 1, 640 000 ml @ 75 mls/hr IV . [id number] [facility] Rx#:[id number] Other: Voiding Method Toilet Toilet # Voids 2 - Constitutional General appearance: Present: cooperative, no acute distress, obese - EENT Eyes: Present: anicteric sclerae, EOMI ENT: Present: hearing grossly normal, normal oropharynx - Respiratory Respiratory: bilateral: CTA - Cardiovascular Rhythm: regular Heart sounds: normal: S1, S2 - Peripheral edema leg Peripheral Edema: bilateral: None - Gastrointestinal General gastrointestinal: Present: normal bowel sounds, soft Localized gastrointestinal: tender: RUQ - Neurologic Neurologic: Present: CNII-XII intact - Musculoskeletal Musculoskeletal: Present: generalized weakness, strength equal bilaterally - Psychiatric Psychiatric: Present: A&O x's 3, appropriate affect, intact judgment & insight - Labs CBC & Chem 7: 10/24/18 07:51 10/24/18 07:51 Labs: Abnormal Lab Results - Last 24 Hours (Table) 10/22/18 10/23/18 10/23/18 Range/Units 18:30 09:58 20:14 WBC (3.8-10.6) k/uL RDW (11.5-15.5) % Plt Count (150-450) k/uL Lymphocytes # (1.0-4.8) k/uL Sodium (137-145) mmol/L Carbon Dioxide (22-30) mmol/L Glucose (74-99) mg/dL POC Glucose (mg/dL) 237 H (75-99) mg/dL Hemoglobin A1c 7.5 H (4.0-6.0) % Calcium (8.4-10.2) mg/dL Total Bilirubin (0.2-1.3) mg/dL AST (14-36) U/L ALT (9-52) U/L Alkaline Phosphatase (38-126) U/L Total Protein (6.3-8.2) g/dL Albumin (3.5-5.0) g/dL Vitamin B12 1270.0 H (200.0-944.0) pg/mL 10/24/18 10/24/18 10/24/18 Range/Units 07:02 07:51 07:51 WBC 3.6 L (3.8-10.6) k/uL RDW 17.3 H (11.5-15.5) % Plt Count 86 L (150-450) k/uL Lymphocytes # 0.9 L (1.0-4.8) k/uL Sodium 133 L (137-145) mmol/L Carbon Dioxide 21 L (22-30) mmol/L Glucose 234 H (74-99) mg/dL POC Glucose (mg/dL) 211 H (75-99) mg/dL Hemoglobin A1c (4.0-6.0) % Calcium 8.2 L (8.4-10.2) mg/dL Total Bilirubin 1.5 H (0.2-1.3) mg/dL AST 48 H (14-36) U/L ALT 53 H (9-52) U/L Alkaline Phosphatase 219 H (38-126) U/L Total Protein 6.1 L (6.3-8.2) g/dL Albumin 2.6 L (3.5-5.0) g/dL Vitamin B12 (200.0-944.0) pg/mL 10/24/18 10/24/18 Range/Units 11:36 16:45 WBC (3.8-10.6) k/uL RDW (11.5-15.5) % Plt Count (150-450) k/uL Lymphocytes # (1.0-4.8) k/uL Sodium (137-145) mmol/L Carbon Dioxide (22-30) mmol/L Glucose (74-99) mg/dL POC Glucose (mg/dL) 359 H 297 H (75-99) mg/dL Hemoglobin A1c (4.0-6.0) % Calcium (8.4-10.2) mg/dL Total Bilirubin (0.2-1.3) mg/dL AST (14-36) U/L ALT (9-52) U/L Alkaline Phosphatase (38-126) U/L Total Protein (6.3-8.2) g/dL Albumin (3.5-5.0) g/dL Vitamin B12 (200.0-944.0) pg/mL Microbiology - Last 24 Hours (Table) 10/23/18 18:00 Stool Culture - Preliminary Stool Assessment and Plan (1) Hepatocellular carcinoma Narrative/Plan: Pt states that she would like to transfer her cancer care here. I have requested her medical records, scans and pathology reports. Pt asked what stage she is and I explained that I would not be able to tell her that until her medical records are reviewed. Will request additional studies as needed Current Visit: Yes Status: Acute Priority: High Code(s): C22.0 - LIVER CELL CARCINOMA SNOMED Code(s): 654932035 (2) Intractable pain Narrative/Plan: Much improved after BM. Will convert IV morphine to oral IR and reevaluate in AM Meds to prevent constipation ordered. Pt educated on treating constipation sooner then later Current Visit: Yes Status: Acute Priority: Medium Code(s): R52 - PAIN, UNSPECIFIED SNOMED Code(s): 69624282
[2018-10-24] MEDS: INSULIN REGULAR 100 UNIT/ML VIAL SQ SCH (18:15)
[2018-10-24] MEDS: INSULIN NPH 300 UNIT/3 ML VIAL SQ SCH (20:15)
[2018-10-24] MEDS: MORPHINE SULFATE ER 15 MG TABLET PO SCH (20:15)
[2018-10-24 20:16] LABS: Glucose,Whole Blood 370 mg/dL (75-99)
[2018-10-25 07:15] LABS: Glucose,Whole Blood 310 mg/dL (75-99)
[2018-10-25 07:39] LABS: Anisocytosis Slight; Basophils % (A) 0 %; Eosinophils # (A) 0.1 k/uL (0-0.7); Eosinophils % (A) 4 %; HCT 34.3 % (34.0-46.0); HGB 10.6 gm/dL (11.4-16.0); Hypochromasia Moderate; Lymphocytes # (A) 0.8 k/uL (1.0-4.8); Lymphocytes % (A) 24 %; MCH 30.1 pg (25.0-35.0); MCV 97.2 fL (80.0-100.0); Macrocytosis Slight; Mean Platelet Volume 8.1; Monocytes # (A) 0.4 k/uL (0-1.0); Monocytes % (A) 12 %; Neutrophils # (A) 1.8 k/uL (1.3-7.7); Neutrophils % (A) 58 %; RBC 3.52 m/uL (3.80-5.40); RDW 17.1 % (11.5-15.5); WBC 3.2 k/uL (3.8-10.6)
[2018-10-25] MEDS: METOPROLOL TARTRATE 12.5 MG TAB PO SCH (07:49)
[2018-10-25] MEDS: FUROSEMIDE 40 MG TAB PO SCH (07:49)
[2018-10-25] MEDS: MORPHINE SULFATE ER 15 MG TABLET PO SCH ×2 (07:49→21:05)
[2018-10-25] MEDS: MAGNESIUM OXIDE 400 MG TAB PO SCH (07:49)
[2018-10-25] MEDS: PANTOPRAZOLE 40 MG TABLET PO SCH ×2 (07:49→17:37)
[2018-10-25] MEDS: SPIRONOLACTONE 25 MG TAB PO SCH (07:50)
[2018-10-25] MEDS: clonazePAM 0.5 MG TAB PO SCH (07:50)
[2018-10-25 07:51] LABS: Albumin 2.3 g/dL (3.5-5.0); Calcium 7.7 mg/dL (8.4-10.2); Platelet Count 67 k/uL (150-450); Potassium 4.8 mmol/L (3.5-5.1); Total Bilirubin 1.4 mg/dL (0.2-1.3); Total Protein 5.4 g/dL (6.3-8.2)
[2018-10-25] MEDS: SUCRALFATE 1 GM TAB PO SCH ×2 (07:51→21:05)
[2018-10-25] MEDS: CIPROFLOXACIN HCL 500 MG TAB PO SCH (07:51)
[2018-10-25] MEDS: DICYCLOMINE 10 MG CAP PO SCH ×3 (07:51→21:05)
[2018-10-25] MEDS: LACTULOSE 20 GM/30 ML CUP PO SCH (07:51)
[2018-10-25] MEDS: INSULIN REGULAR 100 UNIT/ML VIAL SQ SCH ×3 (07:53→17:37)
[2018-10-25 11:16] LABS: Glucose,Whole Blood 239 mg/dL (75-99)
--- NOTE | 2018-10-25 12:44 | P.PN ---
Subjective Progress Note Date: 10/25/18 This is a 73-year-old female patient of Dr. Kurtz. Patient presented to the emergency room with complaints of abdominal pain with nausea vomiting and diarrhea. Patient does have a known past medical history of Primary liver cancer in which she has received last chemotherapy, hypertension, diverticulitis with ileostomy placement and diabetes mellitus. CT of abdomen and pelvis completed showing liver that is somewhat small and irregular consistent with cirrhosis. Multiple liver masses. Moderate ascites. Small bowel mesenteric edema. Colostomy with parastomal hernia. No evidence of bowel obstruction. CT completed showing sinus bradycardia with premature atrial complexes. Left axis deviation. Right bundle branch block. patient has been consulted for oncology services. Morphine has been ordered for pain control. Home meds resumed. Lasix and Aldactone currently on hold due to acute kidney injury. Will reassess lab work. UA positive for leukocyte esterase. Will start Cipro antibiotic. Urine culture ordered. At this time patient denies chest pain or shortness of breath. Patient denies nausea vomiting or diarrhea. Patient denies any urinary burning or frequency. On 10/24/2018 patient is currently resting in bed. Patient was seen by oncology services. Patient remains on Cipro for UTI. Patient is still complaining of some abdominal discomfort. At this time patient denies chest pain or shortness of breath. Patient denies nausea vomiting or diarrhea. Patient denies any urinary burning or frequency 10/25/2018 patient still complaining of abdominal pain. She is having multiple loose stools. Stool culture growing presumptive staph aureus. She remains on Cipro for UTI. She is complaining of pain in jaw area near her ear. Denies any sore throat. Denies any earache. Denies chest pain or shortness of breath. Does report some nausea no actual vomiting. No blood in the stools. Denies any burning with urination. Objective - Vital Signs Vital signs: Vital Signs Temp 98.3 F 10/25/18 05:00 Pulse 74 10/25/18 05:00 Resp 16 10/25/18 05:00 BP 113/54 10/25/18 05:00 Pulse Ox 98 10/25/18 05:00 Intake & Output 10/24/18 10/25/18 10/25/18 18:59 06:59 18:59 Intake Total 640 890 Balance 640 890 Intake: Intake, IV Titration 640 300 Amount Sodium Chloride 0.9% 1, 640 300 000 ml @ 75 mls/hr IV . [id number] [facility] Rx#:[id number] Oral 590 Other: Voiding Method Toilet Toilet # Voids 3 - Exam Head normocephalic . Tenderness with palpation in front of the ears and down into the jaw. no palpable lymph nodes Neck supple Lungs clear to auscultation bilaterally no wheezing or crackles Heart regular rate and rhythm S1-S2, no rub or gallop Abdomen is soft diffuse tenderness nondistended positive bowel sounds no hepatosplenomegaly Extremities no edema Neuro alert and orientated to 3 - Labs CBC & Chem 7: 10/25/18 07:05 10/25/18 07:05 Labs: Abnormal Lab Results - Last 24 Hours (Table) 10/23/18 10/23/18 10/24/18 Range/Units 09:58 09:58 11:36 WBC (3.8-10.6) k/uL RBC (3.80-5.40) m/uL Hgb (11.4-16.0) gm/dL RDW (11.5-15.5) % Plt Count (150-450) k/uL Lymphocytes # (1.0-4.8) k/uL Sodium (137-145) mmol/L Glucose (74-99) mg/dL POC Glucose (mg/dL) 359 H (75-99) mg/dL Calcium (8.4-10.2) mg/dL Total Bilirubin (0.2-1.3) mg/dL AST (14-36) U/L Alkaline Phosphatase (38-126) U/L Total Protein (6.3-8.2) g/dL Albumin (3.5-5.0) g/dL Vitamin B12 1270.0 H (200.0-944.0) pg/mL RBC Folate 976 H (280 - 791) ng/mL 10/24/18 10/24/18 10/25/18 Range/Units 16:45 20:14 07:05 WBC 3.2 L (3.8-10.6) k/uL RBC 3.52 L (3.80-5.40) m/uL Hgb 10.6 L (11.4-16.0) gm/dL RDW 17.1 H (11.5-15.5) % Plt Count 67 L (150-450) k/uL Lymphocytes # 0.8 L (1.0-4.8) k/uL Sodium (137-145) mmol/L Glucose (74-99) mg/dL POC Glucose (mg/dL) 297 H 370 H (75-99) mg/dL Calcium (8.4-10.2) mg/dL Total Bilirubin (0.2-1.3) mg/dL AST (14-36) U/L Alkaline Phosphatase (38-126) U/L Total Protein (6.3-8.2) g/dL Albumin (3.5-5.0) g/dL Vitamin B12 (200.0-944.0) pg/mL RBC Folate (280 - 791) ng/mL 10/25/18 10/25/18 Range/Units 07:05 07:14 WBC (3.8-10.6) k/uL RBC (3.80-5.40) m/uL Hgb (11.4-16.0) gm/dL RDW (11.5-15.5) % Plt Count (150-450) k/uL Lymphocytes # (1.0-4.8) k/uL Sodium 134 L (137-145) mmol/L Glucose 315 H (74-99) mg/dL POC Glucose (mg/dL) 310 H (75-99) mg/dL Calcium 7.7 L (8.4-10.2) mg/dL Total Bilirubin 1.4 H (0.2-1.3) mg/dL AST 44 H (14-36) U/L Alkaline Phosphatase 228 H (38-126) U/L Total Protein 5.4 L (6.3-8.2) g/dL Albumin 2.3 L (3.5-5.0) g/dL Vitamin B12 (200.0-944.0) pg/mL RBC Folate (280 - 791) ng/mL Microbiology - Last 24 Hours (Table) 10/23/18 18:00 Stool Culture - Preliminary Stool Presumptive Staph aureus Assessment and Plan Assessment: 1. Abdominal pain with nausea vomiting diarrhea. Stool culture positive presumptive staph aureus. Consult ID. C. diff negative. Abdominal pelvis CT showing a liver that is somewhat small and irregular consistent with cirrhosis. Multiple liver masses. Moderate ascites. Small bowel mesenteric edema. Colostomy with parastomal hernia. No evidence of bowel obstruction. Continue morphine 15 mg every 12 hours 2. Urinary tract infection : Urine culture pending. Continue Cipro 3. Acute kidney injury likely related to dehydration. Kidney functions have improved. Initial creatinine 1.39 and bun 33. Labs have been reordered. Resolved. Currently on IV fluids 4. Hyperkalemia. Resolved 5. Primary liver cancer. Patient has been getting chemotherapy to [facility] but is planning to switch to local oncologist. Per oncology services obtaining records from plan: Plan on obtaining tumor markers and considering CT chest to complete staging workup 6. Essential hypertension. Continue current medications 7. Anemia. Hemoglobin dropped to 10.6. Check iron studies . B12 and folate levels are elevated. 8. Diabetes mellitus,Insulin dependent. Hemoglobin A1c 7.5. Patient having hyperglycemia. We will increase her insulin NPH 20 units twice a day 9. Thrombocytopenia platelets dropping to 67. DVT prophylaxis DC'd will order SCDs at this time. Oncology services are following. They felt thrombocytopenia secondary to cirrhosis 10. Elevated liver enzymes likely due to liver cancer. Alkaline phosphatase 228, ALT 46 and AST 44 total bilirubin also elevated at 1.4. Oncology services are following 11. History of ileostomy due to diverticulitis. No malignancy reported per oncology 12. Severe protein calorie malnutrition: start glucerna shakes TID DVT prophylaxis SCDs due to thrombocytopenia. GI prophylaxis Protonix. I performed an examination of the patient and discussed their management with the physician Brim Shaper. I have reviewed the Physician Brim Shaper's notes and agree with the documented findings and plan of care
[2018-10-25] MEDS: INSULIN NPH 300 UNIT/3 ML VIAL SQ SCH ×2 (14:01→21:05)
--- NOTE | 2018-10-25 14:08 | P.PN ---
Subjective Progress Note Date: 10/25/18 Principal diagnosis: Intractable abd pain Pt seen today in f/u, her abd pain is stable, better controlled but today she has c/o jaw pain, very tender right on the TMJ joint, denies ear pain, sore throat, her tongue was a little sore, no SOLIS, ision changes. Stoma is putting out stool, normal consistency for her, no blood. No other c/o. Objective - Vital Signs Vital signs: Vital Signs Temp 98.2 F 10/25/18 12:07 Pulse 59 L 10/25/18 12:07 Resp 17 10/25/18 12:07 BP 115/69 10/25/18 12:07 Pulse Ox 97 10/25/18 12:07 Intake & Output 10/24/18 10/25/18 10/25/18 18:59 06:59 18:59 Intake Total 640 890 Balance 640 890 Intake: Intake, IV Titration 640 300 Amount Sodium Chloride 0.9% 1, 640 300 000 ml @ 75 mls/hr IV . [id number] [facility] Rx#:[id number] Oral 590 Other: Voiding Method Toilet Toilet # Voids 3 - Constitutional General appearance: Present: cooperative, no acute distress, obese - EENT Eyes: Present: anicteric sclerae, EOMI ENT: Present: hearing grossly normal - Neck Details: neck and submandibular areas not tender but the TMJ and perauricular are very sore to touch, no swelling or mass appreciated - Respiratory Respiratory: bilateral: CTA - Cardiovascular Heart sounds: normal: S1, S2 - Peripheral edema leg Peripheral Edema: bilateral: None - Gastrointestinal Gastrointestinal Comment(s): ostomy is not see through, fluid is in it General gastrointestinal: Present: normal bowel sounds, soft - Neurologic Neurologic: Present: CNII-XII intact - Musculoskeletal Musculoskeletal: Present: strength equal bilaterally - Psychiatric Psychiatric: Present: A&O x's 3, appropriate affect, intact judgment & insight - Labs CBC & Chem 7: 10/25/18 07:05 10/25/18 07:05 Labs: Abnormal Lab Results - Last 24 Hours (Table) 10/23/18 10/24/18 10/24/18 Range/Units 09:58 16:45 20:14 WBC (3.8-10.6) k/uL RBC (3.80-5.40) m/uL Hgb (11.4-16.0) gm/dL RDW (11.5-15.5) % Plt Count (150-450) k/uL Lymphocytes # (1.0-4.8) k/uL Sodium (137-145) mmol/L Glucose (74-99) mg/dL POC Glucose (mg/dL) 297 H 370 H (75-99) mg/dL Calcium (8.4-10.2) mg/dL Total Bilirubin (0.2-1.3) mg/dL AST (14-36) U/L Alkaline Phosphatase (38-126) U/L Total Protein (6.3-8.2) g/dL Albumin (3.5-5.0) g/dL RBC Folate 976 H (280 - 791) ng/mL 10/25/18 10/25/18 10/25/18 Range/Units 07:05 07:05 07:14 WBC 3.2 L (3.8-10.6) k/uL RBC 3.52 L (3.80-5.40) m/uL Hgb 10.6 L (11.4-16.0) gm/dL RDW 17.1 H (11.5-15.5) % Plt Count 67 L (150-450) k/uL Lymphocytes # 0.8 L (1.0-4.8) k/uL Sodium 134 L (137-145) mmol/L Glucose 315 H (74-99) mg/dL POC Glucose (mg/dL) 310 H (75-99) mg/dL Calcium 7.7 L (8.4-10.2) mg/dL Total Bilirubin 1.4 H (0.2-1.3) mg/dL AST 44 H (14-36) U/L Alkaline Phosphatase 228 H (38-126) U/L Total Protein 5.4 L (6.3-8.2) g/dL Albumin 2.3 L (3.5-5.0) g/dL RBC Folate (280 - 791) ng/mL 10/25/18 Range/Units 11:14 WBC (3.8-10.6) k/uL RBC (3.80-5.40) m/uL Hgb (11.4-16.0) gm/dL RDW (11.5-15.5) % Plt Count (150-450) k/uL Lymphocytes # (1.0-4.8) k/uL Sodium (137-145) mmol/L Glucose (74-99) mg/dL POC Glucose (mg/dL) 239 H (75-99) mg/dL Calcium (8.4-10.2) mg/dL Total Bilirubin (0.2-1.3) mg/dL AST (14-36) U/L Alkaline Phosphatase (38-126) U/L Total Protein (6.3-8.2) g/dL Albumin (3.5-5.0) g/dL RBC Folate (280 - 791) ng/mL Microbiology - Last 24 Hours (Table) 10/22/18 00:15 Urine Culture - Final Urine,Voided Marie glabrata 10/23/18 18:00 Stool Culture - Preliminary Stool Presumptive Staph aureus Assessment and Plan (1) Hepatocellular carcinoma Narrative/Plan: Her medical history package is pending receipt in the office. Further treatment plans pending Her CEA and AFP were both normal Current Visit: Yes Status: Acute Priority: High Code(s): C22.0 - LIVER CELL CARCINOMA SNOMED Code(s): 314854220 (2) Intractable pain Narrative/Plan: Pt is on MS contin ER with her PCP. She is receiving morphine IR for breakthrough pain, seems to be controlled at this time. Current Visit: Yes Status: Acute Priority: Medium Code(s): R52 - PAIN, UNSPECIFIED SNOMED Code(s): 89623474 Plan: New TMJ pain. Will recheck in AM. Does not have any associated symptoms at this time. RN will report progressive or acute changes in symptoms that may warrent imaging.
[2018-10-25] MEDS: MORPHINE SULFATE 2 MG/ML SYRINGE IVP PRN ×2 (16:04→23:22)
[2018-10-25 16:21] LABS: Glucose,Whole Blood 289 mg/dL (75-99)
[2018-10-25 16:23] LABS: Iron Saturation 14.07 (12.00-45.00)
[2018-10-25] MEDS: SODIUM CHLORIDE 0.9% 1,000 ML IV SCH (17:40)
[2018-10-25 20:01] LABS: Glucose,Whole Blood 355 mg/dL (75-99)
[2018-10-25] MEDS: CHERRY FLAVOR 60 ML BOTTLE PO SCH ×2 (20:06→23:20)
[2018-10-25] MEDS: VANCOMYCIN ORAL SOLUTION 250 MG/5 ML BOTTLE PO SCH ×2 (20:07→23:20)
--- NOTE | 2018-10-26 00:07 | CONS ---
CONSULTATION DATE OF SERVICE: 10/25/2018. REASON FOR CONSULTATION: Stool culture positive for Staph aureus. HISTORY OF PRESENT ILLNESS: The patient is a 73 -year-old female with past medical history significant for primary liver cancer. The patient who also has a history of diverticulitis requiring a sigmoid colectomy and diverting colostomy. The patient recently did have localized chemoembolization for liver METS. The procedure being done at [facility]. Apparently the patient seemed still having abdominal pain, nausea, vomiting and diarrhea since the patient did have the procedure. The patient pain is mostly on the right upper abdominal area, mostly dull aching pain at times sharp. Intensity is almost 6 to 7/10. The patient also has associated nausea, vomiting and diarrhea. The patient did have multiple loose stools but no blood or mucus in it. The stool frequency ranging from 5-6 times, . With these symptoms, the patient presented to the [facility] ER. The patient was evaluated by the ER physician. On arrival to the ER, the patient has been afebrile. The patient has mild leukopenia with a white count of 3.2. Her urine was mildly positive . Stool for C difficile was negative. However, stool culture showing presumptive Staph aureus. This prompted this Infectious Disease consultation. The patient also had a CT abdomen and pelvis completed this admission which shows multiple liver masses noted, ascites, small bowel mesenteric edema, colostomy with parastomal hernia and no evidence of any bowel obstruction. REVIEW OF SYSTEMS: Positive points have been mentioned in the HPI. Rest of systems has been negative. PAST MEDICAL HISTORY: Significant for a primary liver cancer, diabetes mellitus, hypertension, diverticulitis. PAST SURGICAL HISTORY: Bowel resection and colostomy. SOCIAL HISTORY: Denies smoking, drinking, or drug use. FAMILY HISTORY: Mother with history of congestive heart failure. ALLERGIES: TO GREG INHIBITORS, AMLODIPINE, OXYCODONE, PENICILLIN, HYDROMORPHONE. PHYSICAL EXAMINATION: Her blood pressure is 124/58 with a pulse of 62. Temperature 97.5. She is 97% on room air. GENERAL DESCRIPTION is an elderly female lying in bed in no distress. No tachypnea or accessory muscle of respiration use. HEENT: Shows slight pallor. No scleral icterus. Oral mucosa is dry. No pharyngeal erythema. No thrush. NECK: Trachea central. No thyromegaly. Lungs unlabored breathing. Clear to auscultation anteriorly. No wheeze or crackles. HEART S1, S2. Regular rate and rhythm. ABDOMEN: Soft, mildly distended and tender, but no guarding, rigidity, no organomegaly. EXTREMITIES: No edema feet. SKIN EXAMINATION: No rash or mass palpable. NEUROLOGICAL: Patient is awake, alert, oriented x3. Mood and affect normal. LABS: Hemoglobin is 10.6, white count 3.2, BUN of 13, creatinine 0.81. Electrolytes have been normal. Urine was slightly positive. Stool for C difficile is negative. Urine with Marie glabrata. Stool cultures with presumptive staph aureus. DIAGNOSTIC IMPRESSION AND PLAN: 1. Patient admitted to the hospital admitted with abdominal pain, nausea, vomiting and significant diarrhea in this patient stool for C difficile has been negative, however, stool culture is now coming back positive for Staph aureus, more likely the infected pathogen and responsible for her symptoms. 2. Positive urinalysis. No significant urinary symptoms and urine showing Marie glabrata, will have little effect. PLAN: 1. We will discontinue ciprofloxacin. 2. Start the patient on vancomycin 250 p.o. every 6 hours. 3. If the diarrhea persists, will add Questran for symptomatic relief. 4. We will follow up on the clinical condition and further adjust medication if needed. Thank you for this consultation. We will follow the patient along with you. MMLOUL / IJN: [id number] /
[2018-10-26] MEDS: CHERRY FLAVOR 60 ML BOTTLE PO SCH ×4 (06:35→23:19)
[2018-10-26] MEDS: SODIUM CHLORIDE 0.9% 1,000 ML IV SCH ×2 (06:35→17:29)
[2018-10-26] MEDS: VANCOMYCIN ORAL SOLUTION 250 MG/5 ML BOTTLE PO SCH ×4 (06:35→23:19)
[2018-10-26 07:15] LABS: Glucose,Whole Blood 213 mg/dL (75-99)
[2018-10-26] MEDS: PANTOPRAZOLE 40 MG TABLET PO SCH ×2 (08:12→17:28)
[2018-10-26] MEDS: MORPHINE SULFATE ER 15 MG TABLET PO SCH ×2 (08:12→20:01)
[2018-10-26] MEDS: SUCRALFATE 1 GM TAB PO SCH ×2 (08:12→21:33)
[2018-10-26] MEDS: clonazePAM 0.5 MG TAB PO SCH (08:13)
[2018-10-26] MEDS: FUROSEMIDE 40 MG TAB PO SCH (08:13)
[2018-10-26] MEDS: METOPROLOL TARTRATE 12.5 MG TAB PO SCH (08:13)
[2018-10-26] MEDS: INSULIN NPH 300 UNIT/3 ML VIAL SQ SCH ×2 (08:13→21:31)
[2018-10-26] MEDS: MAGNESIUM OXIDE 400 MG TAB PO SCH (08:13)
[2018-10-26] MEDS: DICYCLOMINE 10 MG CAP PO SCH ×3 (08:13→21:33)
[2018-10-26] MEDS: SPIRONOLACTONE 25 MG TAB PO SCH (08:13)
[2018-10-26] MEDS: INSULIN REGULAR 100 UNIT/ML VIAL SQ SCH ×3 (08:14→17:28)
[2018-10-26 09:58] LABS: Anisocytosis Slight; Basophils % (A) 0 %; Eosinophils # (A) 0.3 k/uL (0-0.7); Eosinophils % (A) 7 %; HCT 34.3 % (34.0-46.0); HGB 11.1 gm/dL (11.4-16.0); Hypochromasia Moderate; Lymphocytes # (A) 0.9 k/uL (1.0-4.8); Lymphocytes % (A) 20 %; MCH 31.3 pg (25.0-35.0); MCHC 32.5 g/dL (31.0-37.0); MCV 96.5 fL (80.0-100.0); Macrocytosis Slight; Mean Platelet Volume 8.6; Monocytes # (A) 0.4 k/uL (0-1.0); Monocytes % (A) 8 %; Neutrophils # (A) 2.8 k/uL (1.3-7.7); Neutrophils % (A) 63 %; RBC 3.56 m/uL (3.80-5.40); WBC 4.4 k/uL (3.8-10.6)
[2018-10-26 10:01] LABS: Albumin 2.5 g/dL (3.5-5.0); Calcium 7.9 mg/dL (8.4-10.2); Potassium 4.6 mmol/L (3.5-5.1); Total Bilirubin 1.8 mg/dL (0.2-1.3)
[2018-10-26 10:09] LABS: Platelet Count 73 k/uL (150-450)
[2018-10-26 10:24] VITALS: BMI 29.5
--- NOTE | 2018-10-26 10:45 | P.PN ---
Subjective Progress Note Date: 10/26/18 This is a 73-year-old female patient of Dr. Kurtz. Patient presented to the emergency room with complaints of abdominal pain with nausea vomiting and diarrhea. Patient does have a known past medical history of Primary liver cancer in which she has received last chemotherapy, hypertension, diverticulitis with ileostomy placement and diabetes mellitus. CT of abdomen and pelvis completed showing liver that is somewhat small and irregular consistent with cirrhosis. Multiple liver masses. Moderate ascites. Small bowel mesenteric edema. Colostomy with parastomal hernia. No evidence of bowel obstruction. CT completed showing sinus bradycardia with premature atrial complexes. Left axis deviation. Right bundle branch block. patient has been consulted for oncology services. Morphine has been ordered for pain control. Home meds resumed. Lasix and Aldactone currently on hold due to acute kidney injury. Will reassess lab work. UA positive for leukocyte esterase. Will start Cipro antibiotic. Urine culture ordered. At this time patient denies chest pain or shortness of breath. Patient denies nausea vomiting or diarrhea. Patient denies any urinary burning or frequency. On 10/24/2018 patient is currently resting in bed. Patient was seen by oncology services. Patient remains on Cipro for UTI. Patient is still complaining of some abdominal discomfort. At this time patient denies chest pain or shortness of breath. Patient denies nausea vomiting or diarrhea. Patient denies any urinary burning or frequency 10/25/2018 patient still complaining of abdominal pain. She is having multiple loose stools. Stool culture growing presumptive staph aureus. She remains on Cipro for UTI. She is complaining of pain in jaw area near her ear. Denies any sore throat. Denies any earache. Denies chest pain or shortness of breath. Does report some nausea no actual vomiting. No blood in the stools. Denies any burning with urination. On 10/26/2018. Patient is alert and oriented 3 resting in bed. Patient is still complaining of some abdominal pain along with jaw discomfort. Patient is currently on MS Contin and morphine IV for breakthrough pain. Patient denies any pain to ear throat or mouth. No sores present in mouth. Patient denies any nausea or vomiting. Infectious disease has been consulted Objective - Vital Signs Vital signs: Vital Signs Temp 98.2 F 10/26/18 05:00 Pulse 66 10/26/18 05:00 Resp 16 10/26/18 05:00 BP 117/56 10/26/18 05:00 Pulse Ox 99 10/26/18 05:00 Intake & Output 10/25/18 10/26/18 10/26/18 18:59 06:59 18:59 Intake Total 600 900 Balance 600 900 Weight 90.718 kg 90.718 kg Intake: Intake, IV Titration 600 900 Amount Sodium Chloride 0.9% 1, 600 900 000 ml @ 75 mls/hr IV . [id number] [facility] Rx#:[id number] Other: Voiding Method Toilet Toilet - Exam Head normocephalic Neck supple Lungs clear to auscultation bilaterally no wheezing or crackles Heart regular rate and rhythm S1-S2, no rub or gallop Abdomen is soft nontender nondistended positive bowel sounds no hepatosplenomegaly. Right lower quadrant ileostomy in place no signs of erythema. Some tenderness to palpation around stoma Extremities no edema Neuro alert and orientated to 3 - Labs CBC & Chem 7: 10/26/18 09:16 10/26/18 09:16 Labs: Abnormal Lab Results - Last 24 Hours (Table) 10/25/18 10/25/18 10/25/18 Range/Units 07:05 11:14 16:19 RBC (3.80-5.40) m/uL Hgb (11.4-16.0) gm/dL RDW (11.5-15.5) % Plt Count (150-450) k/uL Lymphocytes # (1.0-4.8) k/uL Sodium (137-145) mmol/L Carbon Dioxide (22-30) mmol/L Glucose (74-99) mg/dL POC Glucose (mg/dL) 239 H 289 H (75-99) mg/dL Calcium (8.4-10.2) mg/dL Iron 37 L (50-170) ug/dL Total Bilirubin (0.2-1.3) mg/dL AST (14-36) U/L Alkaline Phosphatase (38-126) U/L Total Protein (6.3-8.2) g/dL Albumin (3.5-5.0) g/dL 10/25/18 10/26/18 10/26/18 Range/Units 20:00 07:14 09:16 RBC 3.56 L (3.80-5.40) m/uL Hgb 11.1 L (11.4-16.0) gm/dL RDW 17.0 H (11.5-15.5) % Plt Count 73 L (150-450) k/uL Lymphocytes # 0.9 L (1.0-4.8) k/uL Sodium (137-145) mmol/L Carbon Dioxide (22-30) mmol/L Glucose (74-99) mg/dL POC Glucose (mg/dL) 355 H 213 H (75-99) mg/dL Calcium (8.4-10.2) mg/dL Iron (50-170) ug/dL Total Bilirubin (0.2-1.3) mg/dL AST (14-36) U/L Alkaline Phosphatase (38-126) U/L Total Protein (6.3-8.2) g/dL Albumin (3.5-5.0) g/dL 10/26/18 Range/Units 09:16 RBC (3.80-5.40) m/uL Hgb (11.4-16.0) gm/dL RDW (11.5-15.5) % Plt Count (150-450) k/uL Lymphocytes # (1.0-4.8) k/uL Sodium 133 L (137-145) mmol/L Carbon Dioxide 18 L (22-30) mmol/L Glucose 271 H (74-99) mg/dL POC Glucose (mg/dL) (75-99) mg/dL Calcium 7.9 L (8.4-10.2) mg/dL Iron (50-170) ug/dL Total Bilirubin 1.8 H (0.2-1.3) mg/dL AST 45 H (14-36) U/L Alkaline Phosphatase 226 H (38-126) U/L Total Protein 6.0 L (6.3-8.2) g/dL Albumin 2.5 L (3.5-5.0) g/dL Microbiology - Last 24 Hours (Table) 10/22/18 00:15 Urine Culture - Final Urine,Voided Marie glabrata Assessment and Plan Assessment: 1. Abdominal pain with nausea vomiting diarrhea. Stool culture positive presumptive staph aureus. Consult ID. C. diff negative. Abdominal pelvis CT showing a liver that is somewhat small and irregular consistent with cirrhosis. Multiple liver masses. Moderate ascites. Small bowel mesenteric edema. Colostomy with parastomal hernia. No evidence of bowel obstruction. Continue morphine 15 mg every 12 hours. Stool cultures now growing back positive for staph aureus. Infectious disease following. Patient has been switched to vancomycin. 2. Urinary tract infection : Urine culture pending. Infectious disease consulted. Patient switched to vancomycin 3. Acute kidney injury likely related to dehydration. Kidney functions have improved. Initial creatinine 1.39 and bun 33. Labs have been reordered. Resolved. Currently on IV fluids 4. Hyperkalemia. Resolved 5. Primary liver cancer. Patient has been getting chemotherapy to [facility] but is planning to switch to local oncologist. Per oncology services obtaining records from plan: Plan on obtaining tumor markers and considering CT chest to complete staging workup 6. Essential hypertension. Continue current medications 7. Anemia. Hemoglobin dropped to 10.6. Check iron studies . B12 and folate levels are elevated. 8. Diabetes mellitus,Insulin dependent. Hemoglobin A1c 7.5. Patient having hyperglycemia. We will increase her insulin NPH 20 units twice a day 9. Thrombocytopenia platelets dropping to 67. DVT prophylaxis DC'd will order SCDs at this time. Oncology services are following. They felt thrombocytopenia secondary to cirrhosis 10. Elevated liver enzymes likely due to liver cancer. Alkaline phosphatase 228, ALT 46 and AST 44 total bilirubin also elevated at 1.4. Oncology services are following 11. History of ileostomy due to diverticulitis. No malignancy reported per oncology 12. Severe protein calorie malnutrition: start glucerna shakes TID 13. Pain to jaw. Patient remains on MS Contin and morphine for breakthrough pain at this time. Patient denies pain. Ears mouth or throat. No sores present mouth. DVT prophylaxis SCDs due to thrombocytopenia. GI prophylaxis Protonix. I performed an examination of the patient and discussed their management with the Nurse Practitioner. I have reviewed the Nurse Practitioner's notes and agree with the documented findings and plan of care
[2018-10-26 12:08] LABS: Glucose,Whole Blood 330 mg/dL (75-99)
--- NOTE | 2018-10-26 12:58 | P.PN ---
Subjective Progress Note Date: 10/26/18 Principal diagnosis: Intractable abd pain Pt seen today in f/u, her abd pain is stable, diarrhea consistency output, no blood or mucus in the stool. Her right jaw pain persists, denies any other c/o today on a 10 point ROS. , Objective - Vital Signs Vital signs: Vital Signs Temp 98.6 F 10/26/18 12:13 Pulse 62 10/26/18 12:13 Resp 18 10/26/18 12:13 BP 111/65 10/26/18 12:13 Pulse Ox 99 10/26/18 12:13 Intake & Output 10/25/18 10/26/18 10/26/18 18:59 06:59 18:59 Intake Total 600 900 Balance 600 900 Weight 90.718 kg 90.718 kg Intake: Intake, IV Titration 600 900 Amount Sodium Chloride 0.9% 1, 600 900 000 ml @ 75 mls/hr IV . [id number] [facility] Rx#:[id number] Other: Voiding Method Toilet Toilet Toilet - Constitutional General appearance: Present: cooperative, no acute distress, obese - EENT EENT Comment(s): right TMJ very tender, not improved from yesterday, slight parotid swelling Eyes: Present: anicteric sclerae ENT: Present: hearing grossly normal, normal oropharynx - Respiratory Respiratory: bilateral: CTA, diminished - Cardiovascular Heart sounds: normal: S1, S2 - Peripheral edema leg Peripheral Edema: bilateral: None - Gastrointestinal Gastrointestinal Comment(s): mild epigastric tenderness, no rebound General gastrointestinal: Present: normal bowel sounds, soft - Integumentary Integumentary: Present: normal turgor - Neurologic Neurologic: Present: CNII-XII intact - Musculoskeletal Musculoskeletal: Present: generalized weakness, strength equal bilaterally - Psychiatric Psychiatric: Present: A&O x's 3, appropriate affect, intact judgment & insight - Labs CBC & Chem 7: 10/26/18 09:16 10/26/18 09:16 Labs: Abnormal Lab Results - Last 24 Hours (Table) 10/25/18 10/25/18 10/25/18 Range/Units 07:05 16:19 20:00 RBC (3.80-5.40) m/uL Hgb (11.4-16.0) gm/dL RDW (11.5-15.5) % Plt Count (150-450) k/uL Lymphocytes # (1.0-4.8) k/uL Sodium (137-145) mmol/L Carbon Dioxide (22-30) mmol/L Glucose (74-99) mg/dL POC Glucose (mg/dL) 289 H 355 H (75-99) mg/dL Calcium (8.4-10.2) mg/dL Iron 37 L (50-170) ug/dL Total Bilirubin (0.2-1.3) mg/dL AST (14-36) U/L Alkaline Phosphatase (38-126) U/L Total Protein (6.3-8.2) g/dL Albumin (3.5-5.0) g/dL 10/26/18 10/26/18 10/26/18 Range/Units 07:14 09:16 09:16 RBC 3.56 L (3.80-5.40) m/uL Hgb 11.1 L (11.4-16.0) gm/dL RDW 17.0 H (11.5-15.5) % Plt Count 73 L (150-450) k/uL Lymphocytes # 0.9 L (1.0-4.8) k/uL Sodium 133 L (137-145) mmol/L Carbon Dioxide 18 L (22-30) mmol/L Glucose 271 H (74-99) mg/dL POC Glucose (mg/dL) 213 H (75-99) mg/dL Calcium 7.9 L (8.4-10.2) mg/dL Iron (50-170) ug/dL Total Bilirubin 1.8 H (0.2-1.3) mg/dL AST 45 H (14-36) U/L Alkaline Phosphatase 226 H (38-126) U/L Total Protein 6.0 L (6.3-8.2) g/dL Albumin 2.5 L (3.5-5.0) g/dL 10/26/18 Range/Units 12:06 RBC (3.80-5.40) m/uL Hgb (11.4-16.0) gm/dL RDW (11.5-15.5) % Plt Count (150-450) k/uL Lymphocytes # (1.0-4.8) k/uL Sodium (137-145) mmol/L Carbon Dioxide (22-30) mmol/L Glucose (74-99) mg/dL POC Glucose (mg/dL) 330 H (75-99) mg/dL Calcium (8.4-10.2) mg/dL Iron (50-170) ug/dL Total Bilirubin (0.2-1.3) mg/dL AST (14-36) U/L Alkaline Phosphatase (38-126) U/L Total Protein (6.3-8.2) g/dL Albumin (3.5-5.0) g/dL Microbiology - Last 24 Hours (Table) 10/22/18 00:15 Urine Culture - Final Urine,Voided Marie glabrata Assessment and Plan (1) Hepatocellular carcinoma Narrative/Plan: Her medical history package is STILL pending receipt in the office. Further treatment plans to follow Her CEA and AFP were both normal Current Visit: Yes Status: Acute Priority: High Code(s): C22.0 - LIVER CELL CARCINOMA SNOMED Code(s): 832228781 (2) Intractable pain Narrative/Plan: Will change IV pain meds to oral in anticipation of discharge. Current Visit: Yes Status: Acute Priority: Medium Code(s): R52 - PAIN, UNSPECIFIED SNOMED Code(s): 44480865 Plan: New TMJ pain. On recheck no improvement. CT neck and right TMJ requested
--- NOTE | 2018-10-26 16:41 | CT ---
EXAMINATION TYPE: CT soft tissue neck w con DATE OF EXAM: 10/26/2018 HISTORY: Pain RT preauricular, TMJ, parotid. COMPARISON: NONE CT DLP: 738 mGycm. Automated Exposure Control for Dose Reduction was Utilized. TECHNIQUE: CT scan of the neck is performed with IV Contrast, patient injected with 100 mL of Isovue 300, axial images are obtained, coronal and sagittal reformatted images are reviewed. FINDINGS: Airway: Airway is maintained. True and false focal cords are unremarkable. Fossa of Rosenmuller and t orus tubarius are also unremarkable. Vallecula and piriform sinuses are symmetric. Parotid/submandibular glands: Parotid glands and submandibular glands are symmetric without radiopaqu e calculi or surrounding inflammatory change. Carotid/Vascular Structures: There is focal stenosis of the right carotid bulb of approximately 50% e xtending 7 mm in length. Minimal nonhemodynamically significant atherosclerosis is seen within the le ft carotid bulb and bilateral internal carotid arteries. There is a conventional three-vessel branch pattern of the aortic arch. Osseous Structures: Mild multilevel degenerative changes of the cervical spine are seen. Temporomand ibular joints appear overall symmetric with very minimal arthropathy as there is flattening of the ma ndibular condyles. No dislocation. Other: Orbits and extraocular muscles are symmetric. Evaluation of intracranial structures is limited . Thyroid gland appears slightly prominent in size with posterior extension of the right thyroid lob e but overall homogeneous. Lung apices demonstrate minimal atelectasis. Paranasal sinuses and mastoid air cells are well aerated. No middle ear cavity fluid is seen. External auditory canals are patent. IMPRESSION: 1. Minimal temporomandibular joint arthropathy bilaterally in the area the patient's pain. At there i s further concern MRI of the temporomandibular joint could be performed. 2. No parotid gland abnormality in the patient's area stated pain. No evidence of sialoadenitis.
[2018-10-26 17:14] LABS: Glucose,Whole Blood 188 mg/dL (75-99)
--- NOTE | 2018-10-26 17:47 | PN ---
PROGRESS NOTE DATE OF SERVICE: 10/26/2018. REASON FOR FOLLOWUP VISIT: Infectious diarrhea. INTERVAL HISTORY: The patient is currently afebrile. She is breathing comfortably. She is feeling better today. Abdominal pain has improved and diarrhea frequency has decreased as well. Denies having any chest pain or shortness of breath or cough. PHYSICAL EXAMINATION: Blood pressure 111/65, pulse of 62, temperature 98.6. She is 99% on room air. General description is an elderly female lying in bed in no distress. Respiratory system: Unlabored breathing, clear to auscultation anteriorly. Heart S1, S2. Regular rate and rhythm. Abdomen soft, minimal tenderness. No guarding. No rigidity. Extremities: No edema of the feet. LABS: Hemoglobin 11.1, white count 4.4, BUN of 10, creatinine 0.83. DIAGNOSTIC IMPRESSION AND PLAN: Patient admitted to the hospital with abdominal pain, nausea, vomiting and diarrhea, showing a Staph aureus. Stool for C difficile was negative. Likely Staph aureus is the cause of her diarrhea. She seemed to respond with oral Vanco that will continue to finish 10 days of therapy. Continue supportive care. MMODL / IJN: [id number] /
[2018-10-26 19:47] LABS: Glucose,Whole Blood 186 mg/dL (75-99)
[2018-10-27] MEDS: VANCOMYCIN ORAL SOLUTION 250 MG/5 ML BOTTLE PO SCH ×3 (05:43→18:53)
[2018-10-27] MEDS: CHERRY FLAVOR 60 ML BOTTLE PO SCH ×3 (05:43→18:53)
[2018-10-27 07:09] LABS: Glucose,Whole Blood 215 mg/dL (75-99)
[2018-10-27] MEDS: INSULIN REGULAR 100 UNIT/ML VIAL SQ SCH ×3 (08:03→18:52)
[2018-10-27] MEDS: FUROSEMIDE 40 MG TAB PO SCH (08:05)
[2018-10-27] MEDS: PANTOPRAZOLE 40 MG TABLET PO SCH ×2 (08:05→18:52)
[2018-10-27] MEDS: DICYCLOMINE 10 MG CAP PO SCH ×3 (08:05→20:21)
[2018-10-27] MEDS: clonazePAM 0.5 MG TAB PO SCH (08:05)
[2018-10-27] MEDS: INSULIN NPH 300 UNIT/3 ML VIAL SQ SCH (08:05)
[2018-10-27] MEDS: METOPROLOL TARTRATE 12.5 MG TAB PO SCH (08:06)
[2018-10-27] MEDS: MAGNESIUM OXIDE 400 MG TAB PO SCH (08:06)
[2018-10-27] MEDS: MORPHINE SULFATE ER 15 MG TABLET PO SCH ×2 (08:06→20:20)
[2018-10-27] MEDS: SUCRALFATE 1 GM TAB PO SCH ×2 (08:08→20:21)
[2018-10-27] MEDS: SPIRONOLACTONE 25 MG TAB PO SCH (08:08)
[2018-10-27 08:36] LABS: Anisocytosis Slight; Basophils % (A) 0 %; Eosinophils # (A) 0.2 k/uL (0-0.7); Eosinophils % (A) 6 %; HCT 30.4 % (34.0-46.0); Hypochromasia Moderate; Lymphocytes # (A) 0.7 k/uL (1.0-4.8); Lymphocytes % (A) 24 %; MCH 29.6 pg (25.0-35.0); MCV 95.3 fL (80.0-100.0); Mean Platelet Volume 8.8; Monocytes # (A) 0.3 k/uL (0-1.0); Monocytes % (A) 11 %; Neutrophils # (A) 1.6 k/uL (1.3-7.7); Neutrophils % (A) 55 %; RBC 3.19 m/uL (3.80-5.40); RDW 17.2 % (11.5-15.5); WBC 2.9 k/uL (3.8-10.6)
[2018-10-27 08:47] LABS: ALT 44 U/L (9-52); AST 39 U/L (14-36); Alkaline Phosphatase 195 U/L (38-126); Anion Gap 4 mmol/L; Blood Urea Nitrogen 9 mg/dL (7-17); Calcium 7.5 mg/dL (8.4-10.2); Carbon Dioxide 23 mmol/L (22-30); Chloride 108 mmol/L (98-107); Glucose 174 mg/dL (74-99); Potassium 4.3 mmol/L (3.5-5.1); Sodium 135 mmol/L (137-145); Total Bilirubin 1.2 mg/dL (0.2-1.3); Total Protein 4.9 g/dL (6.3-8.2)
[2018-10-27 08:50] LABS: HGB 9.4 gm/dL (11.4-16.0)
[2018-10-27 08:51] LABS: Platelet Count 61 k/uL (150-450)
[2018-10-27] MEDS: SODIUM CHLORIDE 0.9% 1,000 ML IV SCH ×2 (10:53→16:39)
[2018-10-27] MEDS: MORPHINE SULFATE IR 15 MG TABLET PO PRN ×2 (10:54→16:39)
[2018-10-27 11:11] LABS: Glucose,Whole Blood 241 mg/dL (75-99)
[2018-10-27] MEDS: MICONAZOLE NITRATE 2% CREAM 14 GM TUBE TOPICAL SCH ×2 (12:58→20:22)
--- NOTE | 2018-10-27 13:13 | P.PN ---
Subjective Progress Note Date: 10/27/18 This is a 73-year-old female patient of Dr. Kurtz. Patient presented to the emergency room with complaints of abdominal pain with nausea vomiting and diarrhea. Patient does have a known past medical history of Primary liver cancer in which she has received last chemotherapy, hypertension, diverticulitis with ileostomy placement and diabetes mellitus. CT of abdomen and pelvis completed showing liver that is somewhat small and irregular consistent with cirrhosis. Multiple liver masses. Moderate ascites. Small bowel mesenteric edema. Colostomy with parastomal hernia. No evidence of bowel obstruction. CT completed showing sinus bradycardia with premature atrial complexes. Left axis deviation. Right bundle branch block. patient has been consulted for oncology services. Morphine has been ordered for pain control. Home meds resumed. Lasix and Aldactone currently on hold due to acute kidney injury. Will reassess lab work. UA positive for leukocyte esterase. Will start Cipro antibiotic. Urine culture ordered. At this time patient denies chest pain or shortness of breath. Patient denies nausea vomiting or diarrhea. Patient denies any urinary burning or frequency. On 10/24/2018 patient is currently resting in bed. Patient was seen by oncology services. Patient remains on Cipro for UTI. Patient is still complaining of some abdominal discomfort. At this time patient denies chest pain or shortness of breath. Patient denies nausea vomiting or diarrhea. Patient denies any urinary burning or frequency 10/25/2018 patient still complaining of abdominal pain. She is having multiple loose stools. Stool culture growing presumptive staph aureus. She remains on Cipro for UTI. She is complaining of pain in jaw area near her ear. Denies any sore throat. Denies any earache. Denies chest pain or shortness of breath. Does report some nausea no actual vomiting. No blood in the stools. Denies any burning with urination. On 10/26/2018. Patient is alert and oriented 3 resting in bed. Patient is still complaining of some abdominal pain along with jaw discomfort. Patient is currently on MS Contin and morphine IV for breakthrough pain. Patient denies any pain to ear throat or mouth. No sores present in mouth. Patient denies any nausea or vomiting. Infectious disease has been consulted On 10/27/2018 patient is alert and oriented 3 resting in bed. Patient jaw discomfort has significantly improved. At this time patient is complaining more of abdominal discomfort. Patient denies chest pain or shortness of breath. Patient denies any nausea or vomiting. Patient is having loose stools through ostomy. Patient denies any urinary burning or frequency Objective - Vital Signs Vital signs: Vital Signs Temp 98.5 F 10/27/18 12:10 Pulse 64 10/27/18 12:10 Resp 18 10/27/18 12:10 BP 142/72 10/27/18 12:10 Pulse Ox 100 10/27/18 12:10 Intake & Output 10/26/18 10/27/18 10/27/18 18:59 06:59 18:59 Intake Total 600 2560 Balance 600 2560 Weight 90.718 kg Intake: Intake, IV Titration 600 900 Amount Sodium Chloride 0.9% 1, 600 900 000 ml @ 75 mls/hr IV . [id number] [facility] Rx#:[id number] Oral 1660 Other: Voiding Method Toilet Toilet Toilet # Voids 2 # Bowel Movements 3 2 - Exam Head normocephalic Neck supple Lungs clear to auscultation bilaterally no wheezing or crackles Heart regular rate and rhythm S1-S2, no rub or gallop Abdomen is soft nontender nondistended positive bowel sounds no hepatosplenomegaly. Right lower quadrant ileostomy in place no signs of erythema. Some tenderness to palpation around stoma Extremities no edema Neuro alert and orientated to 3 - Labs CBC & Chem 7: 10/27/18 07:25 10/27/18 07:25 Labs: Abnormal Lab Results - Last 24 Hours (Table) 10/26/18 10/26/18 10/27/18 Range/Units 17:13 19:45 07:07 WBC (3.8-10.6) k/uL RBC (3.80-5.40) m/uL Hgb (11.4-16.0) gm/dL Hct (34.0-46.0) % RDW (11.5-15.5) % Plt Count (150-450) k/uL Lymphocytes # (1.0-4.8) k/uL Sodium (137-145) mmol/L Chloride (98-107) mmol/L Glucose (74-99) mg/dL POC Glucose (mg/dL) 188 H 186 H 215 H (75-99) mg/dL Calcium (8.4-10.2) mg/dL AST (14-36) U/L Alkaline Phosphatase (38-126) U/L Total Protein (6.3-8.2) g/dL Albumin (3.5-5.0) g/dL 10/27/18 10/27/18 10/27/18 Range/Units 07:25 07:25 11:10 WBC 2.9 L (3.8-10.6) k/uL RBC 3.19 L (3.80-5.40) m/uL Hgb 9.4 L D (11.4-16.0) gm/dL Hct 30.4 L (34.0-46.0) % RDW 17.2 H (11.5-15.5) % Plt Count 61 L (150-450) k/uL Lymphocytes # 0.7 L (1.0-4.8) k/uL Sodium 135 L (137-145) mmol/L Chloride 108 H (98-107) mmol/L Glucose 174 H (74-99) mg/dL POC Glucose (mg/dL) 241 H (75-99) mg/dL Calcium 7.5 L (8.4-10.2) mg/dL AST 39 H (14-36) U/L Alkaline Phosphatase 195 H (38-126) U/L Total Protein 4.9 L (6.3-8.2) g/dL Albumin 2.0 L (3.5-5.0) g/dL Microbiology - Last 24 Hours (Table) 10/23/18 18:00 Stool Culture - Final Stool Methicillin resist S. aureus Assessment and Plan Assessment: 1. Abdominal pain with nausea vomiting diarrhea. Stool culture positive presumptive staph aureus. Consult ID. C. diff negative. Abdominal pelvis CT showing a liver that is somewhat small and irregular consistent with cirrhosis. Multiple liver masses. Moderate ascites. Small bowel mesenteric edema. Colostomy with parastomal hernia. No evidence of bowel obstruction. Continue morphine 15 mg every 12 hours. Stool culture currently positive for MRSA. Sections the following. Patient remains on oral vancomycin. 2. Urinary tract infection : Urine culture pending. Infectious disease consulted. Culture currently growing krish glabrata 3. Acute kidney injury likely related to dehydration. Kidney functions have improved. Initial creatinine 1.39 and bun 33. Labs have been reordered. Resolved. Currently on IV fluids 4. Hyperkalemia. Resolved 5. Primary liver cancer. Patient has been getting chemotherapy to [facility] but is planning to switch to local oncologist. Per oncology services obtaining records from plan: Plan on obtaining tumor markers and considering CT chest to complete staging workup 6. Essential hypertension. Continue current medications 7. Anemia. Hemoglobin dropped to 10.6. Check iron studies . B12 and folate levels are elevated. 8. Diabetes mellitus,Insulin dependent. Hemoglobin A1c 7.5. Patient having hyperglycemia. We will increase her insulin NPH 20 units twice a day 9. Thrombocytopenia platelets dropping to 67. DVT prophylaxis DC'd will order SCDs at this time. Oncology services are following. They felt thrombocytopenia secondary to cirrhosis 10. Elevated liver enzymes likely due to liver cancer. Alkaline phosphatase 228, ALT 46 and AST 44 total bilirubin also elevated at 1.4. Oncology services are following 11. History of ileostomy due to diverticulitis. No malignancy reported per oncology 12. Severe protein calorie malnutrition: start glucerna shakes TID 13. Pain to jaw. Patient remains on MS Contin and morphine for breakthrough pain at this time. Patient denies pain. Ears mouth or throat. No sores present mouth. CT of soft tissue neck dated showing minimal temporomandibular joint arthroplasty bilaterally in the area of the patinient's pain. If there is any further concern MRI of the temporomandibular joint could be performed. No parotid gland abnormality in the patient's areas dated pain. No evidence of sialoadenitis. And states Pain has improved DVT prophylaxis SCDs due to thrombocytopenia. GI prophylaxis Protonix. I performed an examination of the patient and discussed their management with the Nurse Practitioner. I have reviewed the Nurse Practitioner's notes and agree with the documented findings and plan of care
--- NOTE | 2018-10-27 13:15 | P.PN ---
Subjective Progress Note Date: 10/27/18 Principal diagnosis: Intractable abd pain Pt seen today in f/u, she had increased discomfort in the RUQ, some abd cramping with stools, diarrhea consistency output persists, no blood or mucus. Her right jaw pain is a little better today, she does not feel her pain is managed well at this time, she has NOT taken the MSIR. She is having vaginal itching and some burning, she states these are symptoms of a yeast infection which is common for her. No other c/o today on a 10 point ROS. Objective - Vital Signs Vital signs: Vital Signs Temp 98.5 F 10/27/18 12:10 Pulse 64 10/27/18 12:10 Resp 18 10/27/18 12:10 BP 142/72 10/27/18 12:10 Pulse Ox 100 10/27/18 12:10 Intake & Output 10/26/18 10/27/18 10/27/18 18:59 06:59 18:59 Intake Total 600 2560 Balance 600 2560 Weight 90.718 kg Intake: Intake, IV Titration 600 900 Amount Sodium Chloride 0.9% 1, 600 900 000 ml @ 75 mls/hr IV . [id number] [facility] Rx#:[id number] Oral 1660 Other: Voiding Method Toilet Toilet Toilet # Voids 2 # Bowel Movements 3 2 - Constitutional General appearance: Present: cooperative, no acute distress, obese - EENT EENT Comment(s): Right jaw appears less swollen, able to palpate jaw/TMJ with not as intense of a pain response from pt. Jaw has FROM Eyes: Present: anicteric sclerae, EOMI ENT: Present: normal oropharynx - Respiratory Respiratory: bilateral: CTA - Cardiovascular Heart sounds: normal: S1, S2 - Gastrointestinal General gastrointestinal: Present: normal bowel sounds, soft, tenderness Localized gastrointestinal: tender: RUQ, epigastric periumbilical - Integumentary Integumentary: Present: normal - Neurologic Neurologic: Present: CNII-XII intact - Musculoskeletal Musculoskeletal: Present: strength equal bilaterally - Psychiatric Psychiatric: Present: A&O x's 3, appropriate affect, intact judgment & insight - Labs CBC & Chem 7: 10/27/18 07:25 10/27/18 07:25 Labs: Abnormal Lab Results - Last 24 Hours (Table) 10/26/18 10/26/18 10/27/18 Range/Units 17:13 19:45 07:07 WBC (3.8-10.6) k/uL RBC (3.80-5.40) m/uL Hgb (11.4-16.0) gm/dL Hct (34.0-46.0) % RDW (11.5-15.5) % Plt Count (150-450) k/uL Lymphocytes # (1.0-4.8) k/uL Sodium (137-145) mmol/L Chloride (98-107) mmol/L Glucose (74-99) mg/dL POC Glucose (mg/dL) 188 H 186 H 215 H (75-99) mg/dL Calcium (8.4-10.2) mg/dL AST (14-36) U/L Alkaline Phosphatase (38-126) U/L Total Protein (6.3-8.2) g/dL Albumin (3.5-5.0) g/dL 10/27/18 10/27/18 10/27/18 Range/Units 07:25 07:25 11:10 WBC 2.9 L (3.8-10.6) k/uL RBC 3.19 L (3.80-5.40) m/uL Hgb 9.4 L D (11.4-16.0) gm/dL Hct 30.4 L (34.0-46.0) % RDW 17.2 H (11.5-15.5) % Plt Count 61 L (150-450) k/uL Lymphocytes # 0.7 L (1.0-4.8) k/uL Sodium 135 L (137-145) mmol/L Chloride 108 H (98-107) mmol/L Glucose 174 H (74-99) mg/dL POC Glucose (mg/dL) 241 H (75-99) mg/dL Calcium 7.5 L (8.4-10.2) mg/dL AST 39 H (14-36) U/L Alkaline Phosphatase 195 H (38-126) U/L Total Protein 4.9 L (6.3-8.2) g/dL Albumin 2.0 L (3.5-5.0) g/dL Microbiology - Last 24 Hours (Table) 12/09/18 18:00 Stool Culture - Final Stool Methicillin resist S. aureus - Imaging and Cardiology CT neck/jaw, report reviewed Assessment and Plan (1) Hepatocellular carcinoma Narrative/Plan: Pending receipt of medical records. Further treatment plans to follow. Not acute situation Current Visit: Yes Status: Acute Priority: High Code(s): C22.0 - LIVER CELL CARCINOMA SNOMED Code(s): 779803329 (2) Intractable pain Narrative/Plan: Reviewed with pt ER morphine and IR morphine. Explained that IV pain meds cannot be given at home so, we need to work on getting a pain regiment that is adequate. Alos, feel that her infection is exacerbating her pain. Pt understands plan and will use the IR morphine PRN and report effectiveness. Meds will be titrated as needed for pain control. Current Visit: Yes Status: Acute Priority: Medium Code(s): R52 - PAIN, UNSPECIFIED SNOMED Code(s): 58478432 (3) Yeast infection of the vagina Narrative/Plan: Pt reported vaginal yeast infection, common for her when she receives abx. External symptoms described, topical treatment ordered. Current Visit: Yes Status: Acute Priority: High Code(s): B37.3 - CANDIDIASIS OF VULVA AND VAGINA SNOMED Code(s): 73781903
[2018-10-27 16:44] LABS: Glucose,Whole Blood 218 mg/dL (75-99)
[2018-10-27 21:04] LABS: Glucose,Whole Blood 118 mg/dL (75-99)
--- NOTE | 2018-10-27 22:39 | PN ---
PROGRESS NOTE DATE OF SERVICE: 10/27/2018. REASON FOR FOLLOWUP: Infectious diarrhea. Stool positive for Staph aureus. INTERVAL HISTORY: The patient is afebrile. She is complaining of having episodes of bouts of loose stools and diarrhea and did have to empty her colostomy 5 times yesterday and 2 times this morning. The patient currently denies having any chest pain or shortness of breath or cough. Abdominal pain is mostly on the right lower abdominal area. No nausea, vomiting, or any diarrhea. PHYSICAL EXAMINATION: Her vital stable. T-max of 98. General description is an elderly female lying in bed in no distress. Respiratory system: Unlabored breathing. Clear to auscultation anteriorly. Heart S1, S2. Regular rate. ABDOMEN: Soft. Mildly distended. No guarding or rigidity. DIAGNOSTIC IMPRESSION AND PLAN: Patient admitted to the hospital with abdominal pain. He did have a significant diarrhea. Stool for C difficile has been negative. The patient's stool culture showing Staph aureus likely the infected pathogen. Did show some response yesterday to the p.o. vancomycin. However did have loose stools later that evening. At this time, we will add Questran 4 grams twice a day and continue the p.o. vancomycin and reevaluated the patient tomorrow. Continue supportive care. MMODL / IJN: [id number] /
[2018-10-28] MEDS: CHERRY FLAVOR 60 ML BOTTLE PO SCH ×5 (00:09→23:31)
[2018-10-28] MEDS: VANCOMYCIN ORAL SOLUTION 250 MG/5 ML BOTTLE PO SCH ×5 (00:09→23:29)
[2018-10-28] MEDS: INSULIN NPH 300 UNIT/3 ML VIAL SQ SCH ×3 (02:37→21:56)
[2018-10-28] MEDS: SODIUM CHLORIDE 0.9% 1,000 ML IV SCH (05:23)
[2018-10-28] MEDS: MORPHINE SULFATE IR 15 MG TABLET PO PRN ×2 (06:48→18:13)
[2018-10-28 07:29] LABS: Glucose,Whole Blood 127 mg/dL (75-99)
[2018-10-28] MEDS: clonazePAM 0.5 MG TAB PO SCH (07:57)
[2018-10-28] MEDS: DICYCLOMINE 10 MG CAP PO SCH ×3 (07:57→21:55)
[2018-10-28] MEDS: PANTOPRAZOLE 40 MG TABLET PO SCH ×2 (07:57→18:12)
[2018-10-28] MEDS: MORPHINE SULFATE ER 15 MG TABLET PO SCH ×2 (07:58→21:54)
[2018-10-28] MEDS: FUROSEMIDE 40 MG TAB PO SCH (07:58)
[2018-10-28] MEDS: METOPROLOL TARTRATE 12.5 MG TAB PO SCH (07:58)
[2018-10-28] MEDS: MAGNESIUM OXIDE 400 MG TAB PO SCH (07:58)
[2018-10-28] MEDS: SUCRALFATE 1 GM TAB PO SCH ×2 (07:59→21:55)
[2018-10-28] MEDS: SPIRONOLACTONE 25 MG TAB PO SCH (07:59)
[2018-10-28] MEDS: INSULIN REGULAR 100 UNIT/ML VIAL SQ SCH ×3 (08:07→18:14)
[2018-10-28] MEDS: MICONAZOLE NITRATE 2% CREAM 14 GM TUBE TOPICAL SCH ×2 (08:10→21:55)
[2018-10-28] MEDS ORDERED: CHOLESTYRAMINE (WITH SUGAR) 4 GM PACKET PO SCH (10:00)
[2018-10-28] MEDS: CHOLESTYRAMINE (WITH SUGAR) 4 GM PACKET PO SCH ×2 (10:28→18:14)
--- NOTE | 2018-10-28 10:32 | P.PN ---
Subjective Progress Note Date: 10/28/18 This is a 73-year-old female patient of Dr. Kurzt. Patient presented to the emergency room with complaints of abdominal pain with nausea vomiting and diarrhea. Patient does have a known past medical history of Primary liver cancer in which she has received last chemotherapy, hypertension, diverticulitis with ileostomy placement and diabetes mellitus. CT of abdomen and pelvis completed showing liver that is somewhat small and irregular consistent with cirrhosis. Multiple liver masses. Moderate ascites. Small bowel mesenteric edema. Colostomy with parastomal hernia. No evidence of bowel obstruction. CT completed showing sinus bradycardia with premature atrial complexes. Left axis deviation. Right bundle branch block. patient has been consulted for oncology services. Morphine has been ordered for pain control. Home meds resumed. Lasix and Aldactone currently on hold due to acute kidney injury. Will reassess lab work. UA positive for leukocyte esterase. Will start Cipro antibiotic. Urine culture ordered. At this time patient denies chest pain or shortness of breath. Patient denies nausea vomiting or diarrhea. Patient denies any urinary burning or frequency. On 10/24/2018 patient is currently resting in bed. Patient was seen by oncology services. Patient remains on Cipro for UTI. Patient is still complaining of some abdominal discomfort. At this time patient denies chest pain or shortness of breath. Patient denies nausea vomiting or diarrhea. Patient denies any urinary burning or frequency 10/25/2018 patient still complaining of abdominal pain. She is having multiple loose stools. Stool culture growing presumptive staph aureus. She remains on Cipro for UTI. She is complaining of pain in jaw area near her ear. Denies any sore throat. Denies any earache. Denies chest pain or shortness of breath. Does report some nausea no actual vomiting. No blood in the stools. Denies any burning with urination. On 10/26/2018. Patient is alert and oriented 3 resting in bed. Patient is still complaining of some abdominal pain along with jaw discomfort. Patient is currently on MS Contin and morphine IV for breakthrough pain. Patient denies any pain to ear throat or mouth. No sores present in mouth. Patient denies any nausea or vomiting. Infectious disease has been consulted On 10/27/2018 patient is alert and oriented 3 resting in bed. Patient jaw discomfort has significantly improved. At this time patient is complaining more of abdominal discomfort. Patient denies chest pain or shortness of breath. Patient denies any nausea or vomiting. Patient is having loose stools through ostomy. Patient denies any urinary burning or frequency On 10/28/2018 patient is alert and oriented 3. Patient is still complaining of increased output from ostomy site with abdominal discomfort. Dr. Isaias mendoza for infectious disease. Questran 4 g twice a day and continue by mouth vancomycin. Patient denies any nausea or vomiting. Patient denies any urinary burning or frequency. Objective - Vital Signs Vital signs: Vital Signs Temp 98.7 F 10/28/18 05:00 Pulse 66 10/28/18 05:00 Resp 16 10/28/18 05:00 BP 100/60 10/28/18 05:00 Pulse Ox 97 10/28/18 05:00 Intake & Output 10/27/18 10/28/18 10/28/18 18:59 06:59 18:59 Intake Total 600 Balance 600 Weight 90.718 kg Intake: Intake, IV Titration 600 Amount Sodium Chloride 0.9% 1, 600 000 ml @ 75 mls/hr IV . [id number] [facility] Rx#:[id number] Other: Voiding Method Toilet Toilet Toilet # Voids 2 - Exam Head normocephalic Neck supple Lungs clear to auscultation bilaterally no wheezing or crackles Heart regular rate and rhythm S1-S2, no rub or gallop Abdomen is soft nontender nondistended positive bowel sounds no hepatosplenomegaly. Right lower quadrant ileostomy in place no signs of erythema. Some tenderness to palpation around stoma Extremities no edema Neuro alert and orientated to 3 - Labs CBC & Chem 7: 10/27/18 07:25 10/27/18 07:25 Labs: Abnormal Lab Results - Last 24 Hours (Table) 10/27/18 10/27/18 10/27/18 Range/Units 11:10 16:43 20:58 POC Glucose (mg/dL) 241 H 218 H 118 H (75-99) mg/dL 10/28/18 Range/Units 07:28 POC Glucose (mg/dL) 127 H (75-99) mg/dL Microbiology - Last 24 Hours (Table) 10/23/18 18:00 Stool Culture - Final Stool Methicillin resist S. aureus Assessment and Plan Assessment: 1. Abdominal pain with nausea vomiting diarrhea. Stool culture positive presumptive staph aureus. Consult ID. C. diff negative. Abdominal pelvis CT showing a liver that is somewhat small and irregular consistent with cirrhosis. Multiple liver masses. Moderate ascites. Small bowel mesenteric edema. Colostomy with parastomal hernia. No evidence of bowel obstruction. Continue morphine 15 mg every 12 hours. Stool culture currently positive for MRSA. Infectious disease following. Patient remains on oral vancomycin. 2. Urinary tract infection : Urine culture pending. Infectious disease consulted. Culture currently growing krish glabrata 3. Acute kidney injury likely related to dehydration. Kidney functions have improved. Initial creatinine 1.39 and bun 33. Labs have been reordered. Resolved. Currently on IV fluids 4. Hyperkalemia. Resolved 5. Primary liver cancer. Patient has been getting chemotherapy to [facility] but is planning to switch to local oncologist. Per oncology services obtaining records from plan: Plan on obtaining tumor markers and considering CT chest to complete staging workup 6. Essential hypertension. Continue current medications 7. Anemia. Hemoglobin dropped to 10.6. Check iron studies . B12 and folate levels are elevated. 8. Diabetes mellitus,Insulin dependent. Hemoglobin A1c 7.5. Patient having hyperglycemia. We will increase her insulin NPH 20 units twice a day 9. Thrombocytopenia platelets dropping to 67. DVT prophylaxis DC'd will order SCDs at this time. Oncology services are following. They felt thrombocytopenia secondary to cirrhosis 10. Elevated liver enzymes likely due to liver cancer. Alkaline phosphatase 228, ALT 46 and AST 44 total bilirubin also elevated at 1.4. Oncology services are following 11. History of ileostomy due to diverticulitis. No malignancy reported per oncology 12. Severe protein calorie malnutrition: start glucerna shakes TID 13. Pain to jaw. Patient remains on MS Contin and morphine for breakthrough pain at this time. Patient denies pain. Ears mouth or throat. No sores present mouth. CT of soft tissue neck dated showing minimal temporomandibular joint arthroplasty bilaterally in the area of the patinient's pain. If there is any further concern MRI of the temporomandibular joint could be performed. No parotid gland abnormality in the patient's areas dated pain. No evidence of sialoadenitis. And states Pain has improved DVT prophylaxis SCDs due to thrombocytopenia. GI prophylaxis Protonix. I performed an examination of the patient and discussed their management with the Nurse Practitioner. I have reviewed the Nurse Practitioner's notes and agree with the documented findings and plan of care
[2018-10-28 11:25] LABS: Glucose,Whole Blood 209 mg/dL (75-99)
--- NOTE | 2018-10-28 11:39 | P.PN ---
Subjective Progress Note Date: 10/28/18 Principal diagnosis: Hepatocellular Carcinoma No acute complaints, feeling better overnight. SHe has not seen oncology till now Objective - Vital Signs Vital signs: Vital Signs Temp 98.7 F 10/28/18 05:00 Pulse 66 10/28/18 05:00 Resp 16 10/28/18 05:00 BP 100/60 10/28/18 05:00 Pulse Ox 97 10/28/18 05:00 Intake & Output 10/27/18 10/28/18 10/28/18 18:59 06:59 18:59 Intake Total 600 Balance 600 Weight 90.718 kg Intake: Intake, IV Titration 600 Amount Sodium Chloride 0.9% 1, 600 000 ml @ 75 mls/hr IV . [id number] [facility] Rx#:[id number] Other: Voiding Method Toilet Toilet Toilet # Voids 2 - Exam - Constitutional General appearance: Present: cooperative, no acute distress, obese - EENT EENT Comment(s): Right jaw appears less swollen, able to palpate jaw/TMJ with not as intense of a pain response from pt. Jaw has FROM Eyes: Present: anicteric sclerae, EOMI ENT: Present: normal oropharynx - Respiratory Respiratory: bilateral: CTA - Cardiovascular Heart sounds: normal: S1, S2 - Gastrointestinal General gastrointestinal: Present: normal bowel sounds, soft, tenderness Localized gastrointestinal: tender: RUQ, epigastric periumbilical - Integumentary Integumentary: Present: normal - Neurologic Neurologic: Present: CNII-XII intact - Musculoskeletal Musculoskeletal: Present: strength equal bilaterally - Psychiatric Psychiatric: Present: A&O x's 3, appropriate affect, intact judgment & insight - Labs CBC & Chem 7: 10/30/18 06:29 10/30/18 06:29 Labs: Abnormal Lab Results - Last 24 Hours (Table) 10/27/18 10/27/18 10/28/18 Range/Units 16:43 20:58 07:28 POC Glucose (mg/dL) 218 H 118 H 127 H (75-99) mg/dL 10/28/18 Range/Units 11:24 POC Glucose (mg/dL) 209 H (75-99) mg/dL Microbiology - Last 24 Hours (Table) 10/23/18 18:00 Stool Culture - Final Stool Methicillin resist S. aureus Assessment and Plan Plan: (1) Hepatocellular carcinoma - Liver Lesions with history of primary cancer per the patient and family Narrative/Plan: - Has not yet seen or followed with Medical Oncology, although per patient received chemoembolization to liver in 2010 and 2014 at [facility] - Await medical records. Will send a second request - Further treatment plans to follow. Not acute situation Current Visit: Yes Status: Acute Priority: High Code(s): C22.0 - LIVER CELL CARCINOMA SNOMED Code(s): 570243584 (2) Intractable pain Narrative/Plan: - Continue to monitor pain closely and adjust long acting and breakthrough PO accordingly to allow relief that can be adequate at home. - Continued education Current Visit: Yes Status: Acute Priority: Medium Code(s): R52 - PAIN, UNSPECIFIED SNOMED Code(s): 67533983 (3)Diverticulitis - - Resulting in Ileostomy, Denies malignacy association (4) UTI - treated with Antibiotics, secondary vaginal candiasis (5) Liver Cirrhosis Noted on CT Scan (6) Mild thrombocytopenia - Likely Secondary to Cirrhosis
[2018-10-28 12:37] LABS: Anisocytosis Slight; Basophils % (A) 0 %; Eosinophils # (A) 0.2 k/uL (0-0.7); Eosinophils % (A) 4 %; HCT 28.7 % (34.0-46.0); HGB 8.9 gm/dL (11.4-16.0); Hypochromasia Marked; Lymphocytes # (A) 0.7 k/uL (1.0-4.8); Lymphocytes % (A) 21 %; MCH 29.9 pg (25.0-35.0); MCHC 31.1 g/dL (31.0-37.0); MCV 96.2 fL (80.0-100.0); Macrocytosis Slight; Mean Platelet Volume 9.1; Monocytes # (A) 0.4 k/uL (0-1.0); Monocytes % (A) 12 %; Neutrophils % (A) 59 %; RBC 2.98 m/uL (3.80-5.40); RDW 17.3 % (11.5-15.5); WBC 3.4 k/uL (3.8-10.6)
[2018-10-28 12:40] LABS: Platelet Count 54 k/uL (150-450)
[2018-10-28 17:27] LABS: Glucose,Whole Blood 127 mg/dL (75-99)
[2018-10-28] MEDS ORDERED: HYDROmorphone 1 MG/ML 1 ML SYRINGE IM PRN (19:40)
[2018-10-28 21:46] LABS: Glucose,Whole Blood 92 mg/dL (75-99)
--- NOTE | 2018-10-28 22:54 | PN ---
PROGRESS NOTE DATE OF SERVICE: 10/28/2018. REASON FOR FOLLOWUP VISIT: Infectious diarrhea with MRSA. INTERVAL HISTORY: The patient is afebrile. She is breathing comfortably. Abdominal pain has slightly decreased in intensity as well as frequency is slightly decreased. Denies having any chest pain or shortness of breath. No cough. No nausea, no vomiting. PHYSICAL EXAMINATION: Blood pressure 114/55 with a pulse of 74, temperature 98.2, she is 98% on room air. GENERAL DESCRIPTION: An elderly female lying in bed in no distress. RESPIRATORY SYSTEM: Unlabored breathing. Clear to auscultation anteriorly. HEART: S1, S2. Regular rate and rhythm. ABDOMEN: Soft, mild distention. No guarding or rigidity. LABS: Hemoglobin 8.8, white count 3.4. DIAGNOSTIC IMPRESSION AND PLAN: Patient admitted to the hospital with abdominal pain and did have significant diarrhea. Stool for C diff negative. Stool culture positive for MRSA. Reportedly on oral vancomycin with yesterday and did have slight improvement. Continue supportive care. MMODL / IJN: [id number] /
[2018-10-29] MEDS: MORPHINE SULFATE IR 15 MG TABLET PO PRN (02:20)
[2018-10-29 02:29] LABS: Glucose,Whole Blood 172 mg/dL (75-99)
[2018-10-29] MEDS: VANCOMYCIN ORAL SOLUTION 250 MG/5 ML BOTTLE PO SCH ×4 (06:07→23:29)
[2018-10-29] MEDS: CHERRY FLAVOR 60 ML BOTTLE PO SCH ×4 (06:07→23:29)
[2018-10-29] MEDS: HYDROmorphone 1 MG/ML 1 ML SYRINGE IVP PRN ×2 (06:23→11:39)
[2018-10-29 07:26] LABS: Glucose,Whole Blood 199 mg/dL (75-99)
[2018-10-29 07:34] LABS: Anisocytosis Slight; Basophils % (A) 0 %; Eosinophils # (A) 0.1 k/uL (0-0.7); Eosinophils % (A) 3 %; HCT 28.2 % (34.0-46.0); Hypochromasia Moderate; Lymphocytes # (A) 0.7 k/uL (1.0-4.8); Lymphocytes % (A) 20 %; MCH 30.5 pg (25.0-35.0); MCHC 31.9 g/dL (31.0-37.0); MCV 95.8 fL (80.0-100.0); Macrocytosis Slight; Mean Platelet Volume 9.1; Monocytes # (A) 0.3 k/uL (0-1.0); Monocytes % (A) 9 %; Neutrophils # (A) 2.3 k/uL (1.3-7.7); Neutrophils % (A) 64 %; RBC 2.95 m/uL (3.80-5.40); RDW 17.3 % (11.5-15.5); WBC 3.6 k/uL (3.8-10.6)
[2018-10-29 07:42] LABS: Platelet Count 50 k/uL (150-450)
[2018-10-29] MEDS: INSULIN REGULAR 100 UNIT/ML VIAL SQ SCH ×3 (07:48→17:37)
[2018-10-29] MEDS: INSULIN NPH 300 UNIT/3 ML VIAL SQ SCH ×2 (07:49→21:10)
[2018-10-29 07:50] LABS: Albumin 2.1 g/dL (3.5-5.0); Calcium 7.9 mg/dL (8.4-10.2); Potassium 4.9 mmol/L (3.5-5.1); Total Bilirubin 1.4 mg/dL (0.2-1.3)
[2018-10-29] MEDS: PANTOPRAZOLE 40 MG TABLET PO SCH ×2 (07:51→17:37)
[2018-10-29] MEDS: METOPROLOL TARTRATE 12.5 MG TAB PO SCH (07:52)
[2018-10-29] MEDS: MAGNESIUM OXIDE 400 MG TAB PO SCH (07:52)
[2018-10-29] MEDS: clonazePAM 0.5 MG TAB PO SCH (07:52)
[2018-10-29] MEDS: SPIRONOLACTONE 25 MG TAB PO SCH (07:53)
[2018-10-29] MEDS: FUROSEMIDE 40 MG TAB PO SCH (07:53)
[2018-10-29] MEDS: SUCRALFATE 1 GM TAB PO SCH ×2 (07:54→21:12)
[2018-10-29] MEDS: MORPHINE SULFATE ER 15 MG TABLET PO SCH ×2 (07:54→21:11)
[2018-10-29] MEDS: DICYCLOMINE 10 MG CAP PO SCH ×3 (07:54→21:12)
[2018-10-29] MEDS: MICONAZOLE NITRATE 2% CREAM 14 GM TUBE TOPICAL SCH ×2 (07:56→21:09)
[2018-10-29] MEDS: CHOLESTYRAMINE (WITH SUGAR) 4 GM PACKET PO SCH ×2 (12:17→21:08)
[2018-10-29 12:22] LABS: Glucose,Whole Blood 144 mg/dL (75-99)
--- NOTE | 2018-10-29 12:24 | P.PN ---
Subjective Progress Note Date: 10/29/18 This is a 73-year-old female patient of Dr. Kurtz. Patient presented to the emergency room with complaints of abdominal pain with nausea vomiting and diarrhea. Patient does have a known past medical history of Primary liver cancer in which she has received last chemotherapy, hypertension, diverticulitis with ileostomy placement and diabetes mellitus. CT of abdomen and pelvis completed showing liver that is somewhat small and irregular consistent with cirrhosis. Multiple liver masses. Moderate ascites. Small bowel mesenteric edema. Colostomy with parastomal hernia. No evidence of bowel obstruction. CT completed showing sinus bradycardia with premature atrial complexes. Left axis deviation. Right bundle branch block. patient has been consulted for oncology services. Morphine has been ordered for pain control. Home meds resumed. Lasix and Aldactone currently on hold due to acute kidney injury. Will reassess lab work. UA positive for leukocyte esterase. Will start Cipro antibiotic. Urine culture ordered. At this time patient denies chest pain or shortness of breath. Patient denies nausea vomiting or diarrhea. Patient denies any urinary burning or frequency. On 10/24/2018 patient is currently resting in bed. Patient was seen by oncology services. Patient remains on Cipro for UTI. Patient is still complaining of some abdominal discomfort. At this time patient denies chest pain or shortness of breath. Patient denies nausea vomiting or diarrhea. Patient denies any urinary burning or frequency 10/25/2018 patient still complaining of abdominal pain. She is having multiple loose stools. Stool culture growing presumptive staph aureus. She remains on Cipro for UTI. She is complaining of pain in jaw area near her ear. Denies any sore throat. Denies any earache. Denies chest pain or shortness of breath. Does report some nausea no actual vomiting. No blood in the stools. Denies any burning with urination. On 10/26/2018. Patient is alert and oriented 3 resting in bed. Patient is still complaining of some abdominal pain along with jaw discomfort. Patient is currently on MS Contin and morphine IV for breakthrough pain. Patient denies any pain to ear throat or mouth. No sores present in mouth. Patient denies any nausea or vomiting. Infectious disease has been consulted On 10/27/2018 patient is alert and oriented 3 resting in bed. Patient jaw discomfort has significantly improved. At this time patient is complaining more of abdominal discomfort. Patient denies chest pain or shortness of breath. Patient denies any nausea or vomiting. Patient is having loose stools through ostomy. Patient denies any urinary burning or frequency On 10/28/2018 patient is alert and oriented 3. Patient is still complaining of increased output from ostomy site with abdominal discomfort. Dr. Isaias mendoza for infectious disease. Questran 4 g twice a day and continue by mouth vancomycin. Patient denies any nausea or vomiting. Patient denies any urinary burning or frequency. On 10/29/2018 patient is alert and oriented 3 she had episode of severe pain in the abdomen last night requiring IV Dilaudid administration. There is no fever or chills no headache no dizziness no chest pain shortness of breath no cough no vomiting at this time and no urinary symptoms Objective - Vital Signs Vital signs: Vital Signs Temp 99.8 F H 10/29/18 04:46 Pulse 69 10/29/18 04:46 Resp 16 10/29/18 04:46 BP 101/51 10/29/18 04:46 Pulse Ox 98 10/29/18 04:46 Intake & Output 10/28/18 10/29/18 10/29/18 18:59 06:59 18:59 Intake Total 1260 Balance 1260 Weight 90.718 kg Intake: Intake, IV Titration 0 Amount Sodium Chloride 0.9% 1, 0 000 ml @ 75 mls/hr IV . [id number] COUNT INCLUDES [facility] Rx#:[id number] Oral 1260 Other: Voiding Method Toilet Toilet Toilet # Voids 4 1 # Bowel Movements 1 - Exam Head normocephalic and atraumatic Neck supple no JVD no goiter Lungs clear to auscultation bilaterally no wheezing or crackles Heart regular rate and rhythm S1-S2, no rub or gallop Abdomen is soft nontender nondistended positive bowel sounds no hepatosplenomegaly. Right lower quadrant ileostomy in place no signs of erythema. Some tenderness to palpation around stoma Extremities no e - Labs CBC & Chem 7: 10/29/18 06:12 10/29/18 06:12 Labs: Abnormal Lab Results - Last 24 Hours (Table) 10/28/18 10/28/18 10/29/18 Range/Units 11:59 17:26 02:23 WBC 3.4 L (3.8-10.6) k/uL RBC 2.98 L (3.80-5.40) m/uL Hgb 8.9 L (11.4-16.0) gm/dL Hct 28.7 L (34.0-46.0) % RDW 17.3 H (11.5-15.5) % Plt Count 54 L (150-450) k/uL Lymphocytes # 0.7 L (1.0-4.8) k/uL Sodium (137-145) mmol/L Chloride (98-107) mmol/L Glucose (74-99) mg/dL POC Glucose (mg/dL) 127 H 172 H (75-99) mg/dL Calcium (8.4-10.2) mg/dL Total Bilirubin (0.2-1.3) mg/dL Alkaline Phosphatase (38-126) U/L Total Protein (6.3-8.2) g/dL Albumin (3.5-5.0) g/dL 10/29/18 10/29/18 10/29/18 Range/Units 06:12 06:12 07:23 WBC 3.6 L (3.8-10.6) k/uL RBC 2.95 L (3.80-5.40) m/uL Hgb 9.0 L (11.4-16.0) gm/dL Hct 28.2 L (34.0-46.0) % RDW 17.3 H (11.5-15.5) % Plt Count 50 L (150-450) k/uL Lymphocytes # 0.7 L (1.0-4.8) k/uL Sodium 134 L (137-145) mmol/L Chloride 109 H (98-107) mmol/L Glucose 155 H (74-99) mg/dL POC Glucose (mg/dL) 199 H (75-99) mg/dL Calcium 7.9 L (8.4-10.2) mg/dL Total Bilirubin 1.4 H (0.2-1.3) mg/dL Alkaline Phosphatase 176 H (38-126) U/L Total Protein 5.0 L (6.3-8.2) g/dL Albumin 2.1 L (3.5-5.0) g/dL Assessment and Plan Plan: 1. Abdominal pain with nausea vomiting diarrhea. Stool culture positive presumptive staph aureus. Consult ID. C. diff negative. Abdominal pelvis CT showing a liver that is somewhat small and irregular consistent with cirrhosis. Multiple liver masses. Moderate ascites. Small bowel mesenteric edema. Colostomy with parastomal hernia. No evidence of bowel obstruction. Continue morphine 15 mg every 12 hours. Stool culture currently positive for MRSA. Infectious disease following. Patient remains on oral vancomycin. Patient had episode of severe pain in the abdomen last night requiring IV Diamox did administration, she is not ready for discharge at this point. 2. Urinary tract infection : Urine culture pending. Infectious disease consulted. Culture currently growing krish glabrata 3. Acute kidney injury likely related to dehydration. Kidney functions have improved. Initial creatinine 1.39 and bun 33. Labs have been reordered. Resolved. Currently on IV fluids 4. Hyperkalemia. Resolved 5. Primary liver cancer. Patient has been getting chemotherapy to [facility] but is planning to switch to local oncologist. Per oncology services obtaining records from plan: Plan on obtaining tumor markers and considering CT chest to complete staging workup 6. Essential hypertension. Continue current medications 7. Anemia. Hemoglobin dropped to 10.6. Check iron studies . B12 and folate levels are elevated. 8. Diabetes mellitus,Insulin dependent. Hemoglobin A1c 7.5. Patient having hyperglycemia. We will increase her insulin NPH 20 units twice a day 9. Thrombocytopenia platelets dropping to 67. DVT prophylaxis DC'd will order SCDs at this time. Oncology services are following. They felt thrombocytopenia secondary to cirrhosis 10. Elevated liver enzymes likely due to liver cancer. Alkaline phosphatase 228, ALT 46 and AST 44 total bilirubin also elevated at 1.4. Oncology services are following 11. History of ileostomy due to diverticulitis. No malignancy reported per oncology 12. Severe protein calorie malnutrition: start glucerna shakes TID 13. Pain to jaw. Patient remains on MS Contin and morphine for breakthrough pain at this time. Patient denies pain. Ears mouth or throat. No sores present mouth. CT of soft tissue neck dated showing minimal temporomandibular joint arthroplasty bilaterally in the area of the patinient's pain. If there is any further concern MRI of the temporomandibular joint could be performed. No parotid gland abnormality in the patient's areas dated pain. No evidence of sialoadenitis. And states Pain has improved DVT prophylaxis SCDs due to thrombocytopenia. GI prophylaxis Protonix.
[2018-10-29 17:13] LABS: Glucose,Whole Blood 138 mg/dL (75-99)
[2018-10-29 20:09] LABS: Glucose,Whole Blood 134 mg/dL (75-99)
[2018-10-30] MEDS: VANCOMYCIN ORAL SOLUTION 250 MG/5 ML BOTTLE PO SCH ×4 (05:23→23:55)
[2018-10-30] MEDS: CHERRY FLAVOR 60 ML BOTTLE PO SCH ×4 (05:23→23:55)
[2018-10-30 07:12] LABS: Glucose,Whole Blood 171 mg/dL (75-99)
[2018-10-30 07:48] LABS: Anisocytosis Slight; Basophils % (A) 0 %; Eosinophils # (A) 0.1 k/uL (0-0.7); Eosinophils % (A) 3 %; HCT 30.4 % (34.0-46.0); HGB 9.4 gm/dL (11.4-16.0); Hypochromasia Moderate; Lymphocytes # (A) 0.7 k/uL (1.0-4.8); Lymphocytes % (A) 20 %; MCH 30.2 pg (25.0-35.0); MCHC 31.1 g/dL (31.0-37.0); MCV 97.1 fL (80.0-100.0); Macrocytosis Slight; Mean Platelet Volume 8.8; Monocytes # (A) 0.3 k/uL (0-1.0); Monocytes % (A) 9 %; Neutrophils # (A) 2.3 k/uL (1.3-7.7); Neutrophils % (A) 65 %; RBC 3.13 m/uL (3.80-5.40); RDW 17.6 % (11.5-15.5); WBC 3.6 k/uL (3.8-10.6)
[2018-10-30 08:00] LABS: Platelet Count 54 k/uL (150-450)
[2018-10-30 08:08] LABS: Albumin 2.1 g/dL (3.5-5.0); Potassium 4.5 mmol/L (3.5-5.1); Total Bilirubin 1.4 mg/dL (0.2-1.3); Total Protein 5.1 g/dL (6.3-8.2)
[2018-10-30 08:10] LABS: Calcium 8.2 mg/dL (8.4-10.2)
[2018-10-30] MEDS: INSULIN REGULAR 100 UNIT/ML VIAL SQ SCH ×3 (08:10→17:43)
[2018-10-30] MEDS: MAGNESIUM OXIDE 400 MG TAB PO SCH (08:10)
[2018-10-30] MEDS: PANTOPRAZOLE 40 MG TABLET PO SCH ×2 (08:10→17:43)
[2018-10-30] MEDS: METOPROLOL TARTRATE 12.5 MG TAB PO SCH (08:10)
[2018-10-30] MEDS: SUCRALFATE 1 GM TAB PO SCH ×2 (08:10→21:48)
[2018-10-30] MEDS: clonazePAM 0.5 MG TAB PO SCH (08:10)
[2018-10-30] MEDS: CHOLESTYRAMINE (WITH SUGAR) 4 GM PACKET PO SCH ×2 (08:10→17:43)
[2018-10-30] MEDS: SPIRONOLACTONE 25 MG TAB PO SCH (08:10)
[2018-10-30] MEDS: FUROSEMIDE 40 MG TAB PO SCH (08:10)
[2018-10-30] MEDS: DICYCLOMINE 10 MG CAP PO SCH ×3 (08:10→21:49)
[2018-10-30] MEDS: INSULIN NPH 300 UNIT/3 ML VIAL SQ SCH ×2 (08:11→21:49)
[2018-10-30] MEDS: MORPHINE SULFATE ER 15 MG TABLET PO SCH ×2 (08:11→21:48)
[2018-10-30] MEDS: MICONAZOLE NITRATE 2% CREAM 14 GM TUBE TOPICAL SCH ×2 (08:13→21:49)
--- NOTE | 2018-10-30 11:47 | P.PN ---
Subjective Progress Note Date: 10/30/18 This is a 73-year-old female patient of Dr. Kurtz. Patient presented to the emergency room with complaints of abdominal pain with nausea vomiting and diarrhea. Patient does have a known past medical history of Primary liver cancer in which she has received last chemotherapy, hypertension, diverticulitis with ileostomy placement and diabetes mellitus. CT of abdomen and pelvis completed showing liver that is somewhat small and irregular consistent with cirrhosis. Multiple liver masses. Moderate ascites. Small bowel mesenteric edema. Colostomy with parastomal hernia. No evidence of bowel obstruction. CT completed showing sinus bradycardia with premature atrial complexes. Left axis deviation. Right bundle branch block. patient has been consulted for oncology services. Morphine has been ordered for pain control. Home meds resumed. Lasix and Aldactone currently on hold due to acute kidney injury. Will reassess lab work. UA positive for leukocyte esterase. Will start Cipro antibiotic. Urine culture ordered. At this time patient denies chest pain or shortness of breath. Patient denies nausea vomiting or diarrhea. Patient denies any urinary burning or frequency. On 10/24/2018 patient is currently resting in bed. Patient was seen by oncology services. Patient remains on Cipro for UTI. Patient is still complaining of some abdominal discomfort. At this time patient denies chest pain or shortness of breath. Patient denies nausea vomiting or diarrhea. Patient denies any urinary burning or frequency 10/25/2018 patient still complaining of abdominal pain. She is having multiple loose stools. Stool culture growing presumptive staph aureus. She remains on Cipro for UTI. She is complaining of pain in jaw area near her ear. Denies any sore throat. Denies any earache. Denies chest pain or shortness of breath. Does report some nausea no actual vomiting. No blood in the stools. Denies any burning with urination. On 10/26/2018. Patient is alert and oriented 3 resting in bed. Patient is still complaining of some abdominal pain along with jaw discomfort. Patient is currently on MS Contin and morphine IV for breakthrough pain. Patient denies any pain to ear throat or mouth. No sores present in mouth. Patient denies any nausea or vomiting. Infectious disease has been consulted On 10/27/2018 patient is alert and oriented 3 resting in bed. Patient jaw discomfort has significantly improved. At this time patient is complaining more of abdominal discomfort. Patient denies chest pain or shortness of breath. Patient denies any nausea or vomiting. Patient is having loose stools through ostomy. Patient denies any urinary burning or frequency On 10/28/2018 patient is alert and oriented 3. Patient is still complaining of increased output from ostomy site with abdominal discomfort. Dr. Isaias mendoza for infectious disease. Questran 4 g twice a day and continue by mouth vancomycin. Patient denies any nausea or vomiting. Patient denies any urinary burning or frequency. On 10/29/2018 patient is alert and oriented 3 she had episode of severe pain in the abdomen last night requiring IV Dilaudid administration. There is no fever or chills no headache no dizziness no chest pain shortness of breath no cough no vomiting at this time and no urinary symptoms 10/30/2018 patient is seen and examined on the medical floor she is alert and oriented 3 in no apparent distress she is still complaining of abdominal pain and complaining of diarrhea otherwise there is no fever or chills no headache or dizziness no chest pain no shortness of breath no cough no nausea or vomiting and no urinary symptoms Objective - Vital Signs Vital signs: Vital Signs Temp 98.4 F 10/30/18 05:00 Pulse 65 10/30/18 05:00 Resp 14 10/30/18 05:00 BP 109/54 10/30/18 05:00 Pulse Ox 98 10/30/18 05:00 Intake & Output 10/29/18 10/30/18 10/30/18 18:59 06:59 18:59 Intake Total 1680 Balance 1680 Intake: Oral 1680 Other: Voiding Method Toilet Toilet # Voids 2 # Bowel Movements 3 1 - Exam Head normocephalic and atraumatic Neck supple no JVD no goiter Lungs clear to auscultation bilaterally no wheezing or crackles Heart regular rate and rhythm S1-S2, no rub or gallop Abdomen is soft nontender nondistended positive bowel sounds no hepatosplenomegaly. Right lower quadrant ileostomy in place no signs of erythema. Some tenderness to palpation around stoma Extremities no e - Labs CBC & Chem 7: 10/30/18 06:29 10/30/18 06:29 Labs: Abnormal Lab Results - Last 24 Hours (Table) 10/29/18 10/29/18 10/29/18 Range/Units 12:19 17:11 20:07 WBC (3.8-10.6) k/uL RBC (3.80-5.40) m/uL Hgb (11.4-16.0) gm/dL Hct (34.0-46.0) % RDW (11.5-15.5) % Plt Count (150-450) k/uL Lymphocytes # (1.0-4.8) k/uL Sodium (137-145) mmol/L Chloride (98-107) mmol/L Glucose (74-99) mg/dL POC Glucose (mg/dL) 144 H 138 H 134 H (75-99) mg/dL Calcium (8.4-10.2) mg/dL Total Bilirubin (0.2-1.3) mg/dL Alkaline Phosphatase (38-126) U/L Total Protein (6.3-8.2) g/dL Albumin (3.5-5.0) g/dL 10/30/18 10/30/18 10/30/18 Range/Units 06:29 06:29 07:10 WBC 3.6 L (3.8-10.6) k/uL RBC 3.13 L (3.80-5.40) m/uL Hgb 9.4 L (11.4-16.0) gm/dL Hct 30.4 L (34.0-46.0) % RDW 17.6 H (11.5-15.5) % Plt Count 54 L (150-450) k/uL Lymphocytes # 0.7 L (1.0-4.8) k/uL Sodium 135 L (137-145) mmol/L Chloride 109 H (98-107) mmol/L Glucose 139 H (74-99) mg/dL POC Glucose (mg/dL) 171 H (75-99) mg/dL Calcium 8.2 L (8.4-10.2) mg/dL Total Bilirubin 1.4 H (0.2-1.3) mg/dL Alkaline Phosphatase 190 H (38-126) U/L Total Protein 5.1 L (6.3-8.2) g/dL Albumin 2.1 L (3.5-5.0) g/dL Assessment and Plan Plan: 1. Abdominal pain with nausea vomiting diarrhea. Stool culture positive presumptive staph aureus. Consult ID. C. diff negative. Abdominal pelvis CT showing a liver that is somewhat small and irregular consistent with cirrhosis. Multiple liver masses. Moderate ascites. Small bowel mesenteric edema. Colostomy with parastomal hernia. No evidence of bowel obstruction. Continue morphine 15 mg every 12 hours. Stool culture currently positive for MRSA. Infectious disease following. Patient remains on oral vancomycin. Patient had episode of severe pain in the abdomen last night requiring IV Diamox did administration, she is not ready for discharge at this point. 2. Urinary tract infection : Urine culture pending. Infectious disease consulted. Culture currently growing krish glabrata 3. Acute kidney injury likely related to dehydration. Kidney functions have improved. Initial creatinine 1.39 and bun 33. Labs have been reordered. Resolved. Currently on IV fluids 4. Hyperkalemia. Resolved 5. Primary liver cancer. Patient has been getting chemotherapy to [facility] but is planning to switch to local oncologist. Per oncology services obtaining records from plan: Plan on obtaining tumor markers and considering CT chest to complete staging workup 6. Essential hypertension. Continue current medications 7. Anemia. Hemoglobin dropped to 10.6. Check iron studies . B12 and folate levels are elevated. 8. Diabetes mellitus,Insulin dependent. Hemoglobin A1c 7.5. Patient having hyperglycemia. We will increase her insulin NPH 20 units twice a day 9. Thrombocytopenia platelets dropping to 67. DVT prophylaxis DC'd will order SCDs at this time. Oncology services are following. They felt thrombocytopenia secondary to cirrhosis 10. Elevated liver enzymes likely due to liver cancer. Alkaline phosphatase 228, ALT 46 and AST 44 total bilirubin also elevated at 1.4. Oncology services are following 11. History of ileostomy due to diverticulitis. No malignancy reported per oncology 12. Severe protein calorie malnutrition: start glucerna shakes TID 13. Pain to jaw. Patient remains on MS Contin and morphine for breakthrough pain at this time. Patient denies pain. Ears mouth or throat. No sores present mouth. CT of soft tissue neck dated showing minimal temporomandibular joint arthroplasty bilaterally in the area of the patinient's pain. If there is any further concern MRI of the temporomandibular joint could be performed. No parotid gland abnormality in the patient's areas dated pain. No evidence of sialoadenitis. And states Pain has improved DVT prophylaxis SCDs due to thrombocytopenia. GI prophylaxis Protonix.
[2018-10-30 12:09] LABS: Glucose,Whole Blood 176 mg/dL (75-99)
[2018-10-30] MEDS: HYDROmorphone 1 MG/ML 1 ML SYRINGE IVP PRN ×3 (15:46→23:46)
[2018-10-30 17:20] LABS: Glucose,Whole Blood 117 mg/dL (75-99)
[2018-10-30 20:30] LABS: Glucose,Whole Blood 218 mg/dL (75-99)
--- NOTE | 2018-10-31 00:03 | PN ---
PROGRESS NOTE DATE OF SERVICE: 10/30/2018. REASON FOR FOLLOW UP: Infectious diarrhea. INTERVAL HISTORY: The patient is afebrile. She is breathing comfortably. Abdominal pain has improved and her diarrhea has slowed down. Did mention she had slightly formed stools today. No nausea, no vomiting. Denies any chest pain, shortness of breath or cough. PHYSICAL EXAMINATION: Blood pressure 109/54 with a pulse of 55, temperature of 98.4. He is 98% on room air. GENERAL DESCRIPTION: An elderly female, lying in bed in no distress. RESPIRATORY SYSTEM: Unlabored breathing. Clear to auscultation anteriorly. HEART: S1 and S2 regular rate and rhythm. ABDOMEN: Soft, no tenderness. LAB: Stool for C-diff has been negative. Hemoglobin 9.4, white count 3.6. DIAGNOSTIC IMPRESSION AND PLAN: Patient admitted to the hospital with infectious diarrhea. Stool has been positive for MRSA. Stool for C difficile has been negative. The patient seems to be slowly responding to the oral vancomycin and Questran. We will continue for another 10 days to finish course of therapy. Continue supportive care. MMODL / IJN: [id number] /
[2018-10-31] MEDS: VANCOMYCIN ORAL SOLUTION 250 MG/5 ML BOTTLE PO SCH ×3 (05:17→17:14)
[2018-10-31] MEDS: CHERRY FLAVOR 60 ML BOTTLE PO SCH ×3 (05:17→17:14)
[2018-10-31 07:18] LABS: Glucose,Whole Blood 114 mg/dL (75-99)
[2018-10-31] MEDS: HYDROmorphone 1 MG/ML 1 ML SYRINGE IVP PRN (07:59)
[2018-10-31] MEDS: clonazePAM 0.5 MG TAB PO SCH (08:01)
[2018-10-31] MEDS: INSULIN REGULAR 100 UNIT/ML VIAL SQ SCH ×3 (08:01→17:58)
[2018-10-31] MEDS: PANTOPRAZOLE 40 MG TABLET PO SCH ×2 (08:01→17:14)
[2018-10-31] MEDS: DICYCLOMINE 10 MG CAP PO SCH ×3 (08:02→22:30)
[2018-10-31] MEDS: FUROSEMIDE 40 MG TAB PO SCH (08:02)
[2018-10-31] MEDS: INSULIN NPH 300 UNIT/3 ML VIAL SQ SCH ×2 (08:02→22:31)
[2018-10-31] MEDS: MAGNESIUM OXIDE 400 MG TAB PO SCH (08:03)
[2018-10-31] MEDS: METOPROLOL TARTRATE 12.5 MG TAB PO SCH (08:03)
[2018-10-31] MEDS: MICONAZOLE NITRATE 2% CREAM 14 GM TUBE TOPICAL SCH ×2 (08:03→22:31)
[2018-10-31] MEDS: SPIRONOLACTONE 25 MG TAB PO SCH (08:03)
[2018-10-31] MEDS: SUCRALFATE 1 GM TAB PO SCH ×2 (08:04→22:30)
[2018-10-31 08:30] LABS: Anisocytosis Slight; Basophils % (A) 0 %; Eosinophils # (A) 0.2 k/uL (0-0.7); Eosinophils % (A) 3 %; HCT 31.6 % (34.0-46.0); HGB 9.5 gm/dL (11.4-16.0); Hypochromasia Moderate; Lymphocytes # (A) 0.9 k/uL (1.0-4.8); Lymphocytes % (A) 18 %; MCH 29.4 pg (25.0-35.0); MCHC 30.1 g/dL (31.0-37.0); MCV 97.5 fL (80.0-100.0); Macrocytosis Slight; Mean Platelet Volume 8.7; Monocytes # (A) 0.4 k/uL (0-1.0); Monocytes % (A) 9 %; Neutrophils # (A) 3.3 k/uL (1.3-7.7); Neutrophils % (A) 66 %; RBC 3.24 m/uL (3.80-5.40); WBC 4.9 k/uL (3.8-10.6)
[2018-10-31 08:37] LABS: Platelet Count 58 k/uL (150-450)
[2018-10-31 08:42] LABS: Albumin 2.3 g/dL (3.5-5.0); Calcium 8.2 mg/dL (8.4-10.2); Potassium 5.2 mmol/L (3.5-5.1); Total Bilirubin 1.6 mg/dL (0.2-1.3); Total Protein 5.4 g/dL (6.3-8.2)
[2018-10-31] MEDS: MORPHINE SULFATE ER 15 MG TABLET PO SCH ×2 (10:19→22:29)
[2018-10-31] MEDS: CHOLESTYRAMINE (WITH SUGAR) 4 GM PACKET PO SCH ×2 (10:20→17:14)
--- NOTE | 2018-10-31 10:23 | P.PN ---
Subjective Progress Note Date: 10/31/18 This is a 73-year-old female patient of Dr. Kurtz. Patient presented to the emergency room with complaints of abdominal pain with nausea vomiting and diarrhea. Patient does have a known past medical history of Primary liver cancer in which she has received last chemotherapy, hypertension, diverticulitis with ileostomy placement and diabetes mellitus. CT of abdomen and pelvis completed showing liver that is somewhat small and irregular consistent with cirrhosis. Multiple liver masses. Moderate ascites. Small bowel mesenteric edema. Colostomy with parastomal hernia. No evidence of bowel obstruction. CT completed showing sinus bradycardia with premature atrial complexes. Left axis deviation. Right bundle branch block. patient has been consulted for oncology services. Morphine has been ordered for pain control. Home meds resumed. Lasix and Aldactone currently on hold due to acute kidney injury. Will reassess lab work. UA positive for leukocyte esterase. Will start Cipro antibiotic. Urine culture ordered. At this time patient denies chest pain or shortness of breath. Patient denies nausea vomiting or diarrhea. Patient denies any urinary burning or frequency. On 10/24/2018 patient is currently resting in bed. Patient was seen by oncology services. Patient remains on Cipro for UTI. Patient is still complaining of some abdominal discomfort. At this time patient denies chest pain or shortness of breath. Patient denies nausea vomiting or diarrhea. Patient denies any urinary burning or frequency 10/25/2018 patient still complaining of abdominal pain. She is having multiple loose stools. Stool culture growing presumptive staph aureus. She remains on Cipro for UTI. She is complaining of pain in jaw area near her ear. Denies any sore throat. Denies any earache. Denies chest pain or shortness of breath. Does report some nausea no actual vomiting. No blood in the stools. Denies any burning with urination. On 10/26/2018. Patient is alert and oriented 3 resting in bed. Patient is still complaining of some abdominal pain along with jaw discomfort. Patient is currently on MS Contin and morphine IV for breakthrough pain. Patient denies any pain to ear throat or mouth. No sores present in mouth. Patient denies any nausea or vomiting. Infectious disease has been consulted On 10/27/2018 patient is alert and oriented 3 resting in bed. Patient jaw discomfort has significantly improved. At this time patient is complaining more of abdominal discomfort. Patient denies chest pain or shortness of breath. Patient denies any nausea or vomiting. Patient is having loose stools through ostomy. Patient denies any urinary burning or frequency On 10/28/2018 patient is alert and oriented 3. Patient is still complaining of increased output from ostomy site with abdominal discomfort. Dr. Isaias mendoza for infectious disease. Questran 4 g twice a day and continue by mouth vancomycin. Patient denies any nausea or vomiting. Patient denies any urinary burning or frequency. On 10/29/2018 patient is alert and oriented 3 she had episode of severe pain in the abdomen last night requiring IV Dilaudid administration. There is no fever or chills no headache no dizziness no chest pain shortness of breath no cough no vomiting at this time and no urinary symptoms 10/30/2018 patient is seen and examined on the medical floor she is alert and oriented 3 in no apparent distress she is still complaining of abdominal pain and complaining of diarrhea otherwise there is no fever or chills no headache or dizziness no chest pain no shortness of breath no cough no nausea or vomiting and no urinary symptoms On 10/31/2018 patient is currently alert and oriented 3. Patient states she is still having abdominal discomfort with increased ostomy output. Patient remains on by mouth vancomycin and Questran this time patient denies chest pain. Patient denies nausea vomiting. Patient denies any urinary burning or frequency. Objective - Vital Signs Vital signs: Vital Signs Temp 98.5 F 10/31/18 07:45 Pulse 63 10/31/18 07:45 Resp 18 10/31/18 07:45 BP 116/60 10/31/18 07:45 Pulse Ox 98 10/31/18 07:45 Intake & Output 10/30/18 10/31/18 10/31/18 18:59 06:59 18:59 Weight 90.718 kg Other: Voiding Method Toilet Toilet # Voids 1 # Bowel Movements 3 - Exam Head normocephalic Neck supple Lungs clear to auscultation bilaterally no wheezing or crackles Heart regular rate and rhythm S1-S2, no rub or gallop Abdomen is soft nontender nondistended positive bowel sounds no hepatosplenomegaly. Right lower quadrant ileostomy in place no signs of erythema. Some tenderness to palpation around stoma Extremities no edema Neuro alert and orientated to 3 - Labs CBC & Chem 7: 10/31/18 07:42 10/31/18 07:42 Labs: Abnormal Lab Results - Last 24 Hours (Table) 10/30/18 10/30/18 10/30/18 Range/Units 12:03 17:16 20:27 RBC (3.80-5.40) m/uL Hgb (11.4-16.0) gm/dL Hct (34.0-46.0) % MCHC (31.0-37.0) g/dL RDW (11.5-15.5) % Plt Count (150-450) k/uL Lymphocytes # (1.0-4.8) k/uL Sodium (137-145) mmol/L Potassium (3.5-5.1) mmol/L Chloride (98-107) mmol/L Glucose (74-99) mg/dL POC Glucose (mg/dL) 176 H 117 H 218 H (75-99) mg/dL Calcium (8.4-10.2) mg/dL Total Bilirubin (0.2-1.3) mg/dL Alkaline Phosphatase (38-126) U/L Total Protein (6.3-8.2) g/dL Albumin (3.5-5.0) g/dL 10/31/18 10/31/18 10/31/18 Range/Units 07:17 07:42 07:42 RBC 3.24 L (3.80-5.40) m/uL Hgb 9.5 L (11.4-16.0) gm/dL Hct 31.6 L (34.0-46.0) % MCHC 30.1 L (31.0-37.0) g/dL RDW 18.0 H (11.5-15.5) % Plt Count 58 L (150-450) k/uL Lymphocytes # 0.9 L (1.0-4.8) k/uL Sodium 136 L (137-145) mmol/L Potassium 5.2 H (3.5-5.1) mmol/L Chloride 109 H (98-107) mmol/L Glucose 104 H (74-99) mg/dL POC Glucose (mg/dL) 114 H (75-99) mg/dL Calcium 8.2 L (8.4-10.2) mg/dL Total Bilirubin 1.6 H (0.2-1.3) mg/dL Alkaline Phosphatase 208 H (38-126) U/L Total Protein 5.4 L (6.3-8.2) g/dL Albumin 2.3 L (3.5-5.0) g/dL Assessment and Plan Assessment: 1. Abdominal pain with nausea vomiting diarrhea. Stool culture positive presumptive staph aureus. Consult ID. C. diff negative. Abdominal pelvis CT showing a liver that is somewhat small and irregular consistent with cirrhosis. Multiple liver masses. Moderate ascites. Small bowel mesenteric edema. Colostomy with parastomal hernia. No evidence of bowel obstruction. Continue morphine 15 mg every 12 hours. Stool culture currently positive for MRSA. Infectious disease following. Patient remains on oral vancomycin. 2. Urinary tract infection : Urine culture pending. Infectious disease consulted. Culture currently growing krish glabrata 3. Acute kidney injury likely related to dehydration. Kidney functions have improved. Initial creatinine 1.39 and bun 33. Labs have been reordered. Resolved. Currently on IV fluids 4. Hyperkalemia. Resolved 5. Primary liver cancer. Patient has been getting chemotherapy to [facility] but is planning to switch to local oncologist. Per oncology services obtaining records from plan: Plan on obtaining tumor markers and considering CT chest to complete staging workup 6. Essential hypertension. Continue current medications 7. Anemia. Hemoglobin dropped to 10.6. Check iron studies . B12 and folate levels are elevated. 8. Diabetes mellitus,Insulin dependent. Hemoglobin A1c 7.5. Patient having hyperglycemia. We will increase her insulin NPH 20 units twice a day 9. Thrombocytopenia platelets dropping to 67. DVT prophylaxis DC'd will order SCDs at this time. Oncology services are following. They felt thrombocytopenia secondary to cirrhosis 10. Elevated liver enzymes likely due to liver cancer. Alkaline phosphatase 228, ALT 46 and AST 44 total bilirubin also elevated at 1.4. Oncology services are following 11. History of ileostomy due to diverticulitis. No malignancy reported per oncology 12. Severe protein calorie malnutrition: start glucerna shakes TID 13. Pain to jaw. Patient remains on MS Contin and morphine for breakthrough pain at this time. Patient denies pain. Ears mouth or throat. No sores present mouth. CT of soft tissue neck dated showing minimal temporomandibular joint arthroplasty bilaterally in the area of the patinient's pain. If there is any further concern MRI of the temporomandibular joint could be performed. No parotid gland abnormality in the patient's areas dated pain. No evidence of sialoadenitis. And states Pain has improved 14. Hyperkalemia. Potassium 5.2. We'll hold Aldactone at this time and recheck in a.m. DVT prophylaxis SCDs due to thrombocytopenia. GI prophylaxis Protonix. I performed an examination of the patient and discussed their management with the Nurse Practitioner. I have reviewed the Nurse Practitioner's notes and agree with the documented findings and plan of care
[2018-10-31] MEDS: MORPHINE SULFATE IR 15 MG TABLET PO PRN (10:52)
[2018-10-31 12:25] LABS: Glucose,Whole Blood 122 mg/dL (75-99)
[2018-10-31 17:15] LABS: Glucose,Whole Blood 88 mg/dL (75-99)
[2018-10-31] MEDS: HYDROmorphone 0.5 MG/0.5 ML SYRINGE IVP PRN ×2 (17:17→22:37)
[2018-10-31 20:25] LABS: Glucose,Whole Blood 189 mg/dL (75-99)
--- NOTE | 2018-10-31 22:10 | PN ---
PROGRESS NOTE DATE OF SERVICE: 10/31/2018. REASON FOR FOLLOW UP: Infectious diarrhea. INTERVAL HISTORY: The patient is afebrile. She has been complaining of pain around the colostomy site, more of a dull aching pain. Her diarrhea frequency seemed to have decreased. Denies any nausea or vomiting. Tolerating a diet. With complaint of some sores in her mouth, but no difficulty swallowing. EXAMINATION: Blood pressure 197/51 with a pulse of 60, temperature 99.5. She is 100% on room air. General description is an elderly female, lying in bed in no distress. HEENT examination: No oral lesions. Lungs unlabored breathing, clear to auscultation anteriorly. Heart S1, S2. Regular rate and rhythm. Abdomen soft, no tenderness. LABS: Hemoglobin 9.5, white count 4.9 with a BUN of 9, creatinine 0.91. DIAGNOSTIC IMPRESSION AND PLAN: 1. Patient with infectious diarrhea with stool positive for MRSA on oral vancomycin. Continue along with Questran. 2. Possible oral thrush, will add Nystatin swish and swallow. 3. Continue supportive care. MMODL / IJN: [id number] /
[2018-10-31] MEDS: NYSTATIN 100,000 UNIT/ML SUSP 500,000 UNIT/5 ML CUP PO SCH (22:30)
[2018-11-01] MEDS: CHERRY FLAVOR 60 ML BOTTLE PO SCH ×4 (00:24→18:21)
[2018-11-01] MEDS: VANCOMYCIN ORAL SOLUTION 250 MG/5 ML BOTTLE PO SCH ×4 (00:24→18:21)
[2018-11-01] MEDS: HYDROmorphone 0.5 MG/0.5 ML SYRINGE IVP PRN ×3 (05:08→19:57)
[2018-11-01 06:49] LABS: Glucose,Whole Blood 93 mg/dL (75-99)
[2018-11-01] MEDS: INSULIN REGULAR 100 UNIT/ML VIAL SQ SCH ×3 (08:30→18:21)
[2018-11-01] MEDS: MORPHINE SULFATE ER 15 MG TABLET PO SCH ×2 (08:33→21:08)
[2018-11-01] MEDS: PANTOPRAZOLE 40 MG TABLET PO SCH ×2 (08:33→18:23)
[2018-11-01] MEDS: FUROSEMIDE 40 MG TAB PO SCH (08:33)
[2018-11-01] MEDS: METOPROLOL TARTRATE 12.5 MG TAB PO SCH (08:33)
[2018-11-01] MEDS: MAGNESIUM OXIDE 400 MG TAB PO SCH (08:34)
[2018-11-01] MEDS: NYSTATIN 100,000 UNIT/ML SUSP 500,000 UNIT/5 ML CUP PO SCH ×4 (08:35→21:09)
[2018-11-01] MEDS: clonazePAM 0.5 MG TAB PO SCH (08:35)
[2018-11-01] MEDS: INSULIN NPH 300 UNIT/3 ML VIAL SQ SCH ×2 (08:36→21:09)
[2018-11-01] MEDS: SUCRALFATE 1 GM TAB PO SCH ×2 (08:37→21:08)
[2018-11-01] MEDS: DICYCLOMINE 10 MG CAP PO SCH ×3 (08:37→21:08)
[2018-11-01] MEDS: CHOLESTYRAMINE (WITH SUGAR) 4 GM PACKET PO SCH ×2 (08:38→18:21)
[2018-11-01] MEDS: MICONAZOLE NITRATE 2% CREAM 14 GM TUBE TOPICAL SCH ×2 (08:39→21:11)
[2018-11-01] MEDS: MORPHINE SULFATE IR 15 MG TABLET PO PRN (09:38)
--- NOTE | 2018-11-01 09:47 | P.PN ---
Subjective Progress Note Date: 11/01/18 This is a 73-year-old female patient of Dr. Kurtz. Patient presented to the emergency room with complaints of abdominal pain with nausea vomiting and diarrhea. Patient does have a known past medical history of Primary liver cancer in which she has received last chemotherapy, hypertension, diverticulitis with ileostomy placement and diabetes mellitus. CT of abdomen and pelvis completed showing liver that is somewhat small and irregular consistent with cirrhosis. Multiple liver masses. Moderate ascites. Small bowel mesenteric edema. Colostomy with parastomal hernia. No evidence of bowel obstruction. CT completed showing sinus bradycardia with premature atrial complexes. Left axis deviation. Right bundle branch block. patient has been consulted for oncology services. Morphine has been ordered for pain control. Home meds resumed. Lasix and Aldactone currently on hold due to acute kidney injury. Will reassess lab work. UA positive for leukocyte esterase. Will start Cipro antibiotic. Urine culture ordered. At this time patient denies chest pain or shortness of breath. Patient denies nausea vomiting or diarrhea. Patient denies any urinary burning or frequency. On 10/24/2018 patient is currently resting in bed. Patient was seen by oncology services. Patient remains on Cipro for UTI. Patient is still complaining of some abdominal discomfort. At this time patient denies chest pain or shortness of breath. Patient denies nausea vomiting or diarrhea. Patient denies any urinary burning or frequency 10/25/2018 patient still complaining of abdominal pain. She is having multiple loose stools. Stool culture growing presumptive staph aureus. She remains on Cipro for UTI. She is complaining of pain in jaw area near her ear. Denies any sore throat. Denies any earache. Denies chest pain or shortness of breath. Does report some nausea no actual vomiting. No blood in the stools. Denies any burning with urination. On 10/26/2018. Patient is alert and oriented 3 resting in bed. Patient is still complaining of some abdominal pain along with jaw discomfort. Patient is currently on MS Contin and morphine IV for breakthrough pain. Patient denies any pain to ear throat or mouth. No sores present in mouth. Patient denies any nausea or vomiting. Infectious disease has been consulted On 10/27/2018 patient is alert and oriented 3 resting in bed. Patient jaw discomfort has significantly improved. At this time patient is complaining more of abdominal discomfort. Patient denies chest pain or shortness of breath. Patient denies any nausea or vomiting. Patient is having loose stools through ostomy. Patient denies any urinary burning or frequency On 10/28/2018 patient is alert and oriented 3. Patient is still complaining of increased output from ostomy site with abdominal discomfort. Dr. Esparza filleatha for infectious disease. Questran 4 g twice a day and continue by mouth vancomycin. Patient denies any nausea or vomiting. Patient denies any urinary burning or frequency. On 10/29/2018 patient is alert and oriented 3 she had episode of severe pain in the abdomen last night requiring IV Dilaudid administration. There is no fever or chills no headache no dizziness no chest pain shortness of breath no cough no vomiting at this time and no urinary symptoms 10/30/2018 patient is seen and examined on the medical floor she is alert and oriented 3 in no apparent distress she is still complaining of abdominal pain and complaining of diarrhea otherwise there is no fever or chills no headache or dizziness no chest pain no shortness of breath no cough no nausea or vomiting and no urinary symptoms On 10/31/2018 patient is currently alert and oriented 3. Patient states she is still having abdominal discomfort with increased ostomy output. Patient remains on by mouth vancomycin and Questran this time patient denies chest pain. Patient denies nausea vomiting. Patient denies any urinary burning or frequency. On 11/01/2018 patient remains alert and oriented 3 patient is still having some abdominal discomfort with increased ostomy output. Patient also complaining of increased ascites patient. Patient states she gets to drained every 2 weeks due to her liver cancer. Will discuss case with oncology services. At the time patient denies chest pain or shortness of breath. Patient denies nausea vomiting or diarrhea. Patient denies any urinary burning or frequency. Objective - Vital Signs Vital signs: Vital Signs Temp 98.3 F 11/01/18 05:00 Pulse 58 L 11/01/18 05:00 Resp 18 11/01/18 08:00 BP 99/53 11/01/18 05:00 Pulse Ox 95 11/01/18 05:00 Intake & Output 10/31/18 11/01/18 11/01/18 18:59 06:59 18:59 Intake Total 1200 Balance 1200 Weight 90.718 kg Intake: Oral 1200 Other: Voiding Method Toilet Toilet Toilet # Voids 1 # Bowel Movements 5 1 - Exam Head normocephalic Neck supple Lungs clear to auscultation bilaterally no wheezing or crackles Heart regular rate and rhythm S1-S2, no rub or gallop Abdomen is soft nontender nondistended positive bowel sounds no hepatosplenomegaly. Right lower quadrant ileostomy in place no signs of erythema. Some tenderness to palpation around stoma Extremities no edema Neuro alert and orientated to 3 - Labs CBC & Chem 7: 10/31/18 07:42 10/31/18 07:42 Labs: Abnormal Lab Results - Last 24 Hours (Table) 10/31/18 10/31/18 Range/Units 12:24 20:23 POC Glucose (mg/dL) 122 H 189 H (75-99) mg/dL Assessment and Plan Assessment: 1. Abdominal pain with nausea vomiting diarrhea. Stool culture positive presumptive staph aureus. Consult ID. C. diff negative. Abdominal pelvis CT showing a liver that is somewhat small and irregular consistent with cirrhosis. Multiple liver masses. Moderate ascites. Small bowel mesenteric edema. Colostomy with parastomal hernia. No evidence of bowel obstruction. Continue morphine 15 mg every 12 hours. Stool culture currently positive for MRSA. Infectious disease following. Patient remains on oral vancomycin. 2. Urinary tract infection : Urine culture pending. Infectious disease consulted. Culture currently growing krish glabrata 3. Acute kidney injury likely related to dehydration. Kidney functions have improved. Initial creatinine 1.39 and bun 33. Labs have been reordered. Resolved. Currently on IV fluids 4. Hyperkalemia. Resolved 5. Primary liver cancer. Patient has been getting chemotherapy to [facility] but is planning to switch to local oncologist. Per oncology services obtaining records from plan: Plan on obtaining tumor markers and considering CT chest to complete staging workup 6. Essential hypertension. Continue current medications 7. Anemia. Hemoglobin dropped to 10.6. Check iron studies . B12 and folate levels are elevated. 8. Diabetes mellitus,Insulin dependent. Hemoglobin A1c 7.5. Patient having hyperglycemia. We will increase her insulin NPH 20 units twice a day 9. Thrombocytopenia platelets dropping to 67. DVT prophylaxis DC'd will order SCDs at this time. Oncology services are following. They felt thrombocytopenia secondary to cirrhosis 10. Elevated liver enzymes likely due to liver cancer. Alkaline phosphatase 228, ALT 46 and AST 44 total bilirubin also elevated at 1.4. Oncology services are following 11. History of ileostomy due to diverticulitis. No malignancy reported per oncology 12. Severe protein calorie malnutrition: start glucerna shakes TID 13. Pain to jaw. Patient remains on MS Contin and morphine for breakthrough pain at this time. Patient denies pain. Ears mouth or throat. No sores present mouth. CT of soft tissue neck dated showing minimal temporomandibular joint arthroplasty bilaterally in the area of the patinient's pain. If there is any further concern MRI of the temporomandibular joint could be performed. No parotid gland abnormality in the patient's areas dated pain. No evidence of sialoadenitis. And states Pain has improved 14. Hyperkalemia. Potassium 5.2. We'll hold Aldactone at this time and recheck in a.m. 15. Increased ascites. Patient states she gets drained every 2 weeks and Archana Vichy due to her liver cancer. Will discuss with cardiology services and await the recommendations. DVT prophylaxis SCDs due to thrombocytopenia. GI prophylaxis Protonix. I performed an examination of the patient and discussed their management with the Nurse Practitioner. I have reviewed the Nurse Practitioner's notes and agree with the documented findings and plan of care
[2018-11-01 10:22] LABS: Albumin 2.1 g/dL (3.5-5.0); Calcium 7.9 mg/dL (8.4-10.2); Potassium 5.5 mmol/L (3.5-5.1); Total Bilirubin 1.9 mg/dL (0.2-1.3); Total Protein 5.1 g/dL (6.3-8.2)
[2018-11-01 10:25] LABS: Anisocytosis Slight; Basophils % (A) 0 %; Eosinophils # (A) 0.1 k/uL (0-0.7); Eosinophils % (A) 3 %; HGB 9.2 gm/dL (11.4-16.0); Hypochromasia Marked; Lymphocytes # (A) 0.7 k/uL (1.0-4.8); Lymphocytes % (A) 15 %; MCH 30.4 pg (25.0-35.0); MCHC 30.7 g/dL (31.0-37.0); Macrocytosis Slight; Mean Platelet Volume 8.7; Monocytes # (A) 0.3 k/uL (0-1.0); Monocytes % (A) 7 %; Neutrophils # (A) 3.4 k/uL (1.3-7.7); Neutrophils % (A) 72 %; RBC 3.03 m/uL (3.80-5.40); RDW 17.8 % (11.5-15.5); WBC 4.8 k/uL (3.8-10.6)
[2018-11-01 10:36] LABS: Platelet Count 55 k/uL (150-450)
[2018-11-01] MEDS ORDERED: SODIUM POLYSTYRENE SULFONATE 15 GM/60 ML BOTTLE PO STA (10:41)
[2018-11-01 11:07] LABS: Glucose,Whole Blood 174 mg/dL (75-99)
--- NOTE | 2018-11-01 11:30 | P.PN ---
Subjective Progress Note Date: 11/01/18 Principal diagnosis: Hepatocellular Carcinoma Increased abdominal distention/Ascites. Objective - Vital Signs Vital signs: Vital Signs Temp 98.3 F 11/01/18 05:00 Pulse 58 L 11/01/18 05:00 Resp 18 11/01/18 08:00 BP 99/53 11/01/18 05:00 Pulse Ox 95 11/01/18 05:00 Intake & Output 10/31/18 11/01/18 11/01/18 18:59 06:59 18:59 Intake Total 1200 Balance 1200 Weight 90.718 kg Intake: Oral 1200 Other: Voiding Method Toilet Toilet Toilet # Voids 1 # Bowel Movements 5 1 - Exam - Constitutional General appearance: Present: cooperative, no acute distress, obese - EENT EENT Comment(s): Right jaw appears less swollen, able to palpate jaw/TMJ with not as intense of a pain response from pt. Jaw has FROM Eyes: Present: anicteric sclerae, EOMI ENT: Present: normal oropharynx - Respiratory Respiratory: bilateral: CTA - Cardiovascular Heart sounds: normal: S1, S2 - Gastrointestinal General gastrointestinal: Present: normal bowel sounds,firm, increased ascite. Localized gastrointestinal: tender: RUQ, epigastric periumbilical - Integumentary Integumentary: Present: normal - Neurologic Neurologic: Present: CNII-XII intact - Musculoskeletal Musculoskeletal: Present: strength equal bilaterally - Psychiatric Psychiatric: Present: A&O x's 3, appropriate affect, intact judgment & insight - Labs CBC & Chem 7: 11/01/18 09:49 11/01/18 15:35 Labs: Abnormal Lab Results - Last 24 Hours (Table) 10/31/18 10/31/18 11/01/18 Range/Units 12:24 20:23 09:49 RBC 3.03 L (3.80-5.40) m/uL Hgb 9.2 L (11.4-16.0) gm/dL Hct 30.0 L (34.0-46.0) % MCHC 30.7 L (31.0-37.0) g/dL RDW 17.8 H (11.5-15.5) % Plt Count 55 L (150-450) k/uL Lymphocytes # 0.7 L (1.0-4.8) k/uL Sodium (137-145) mmol/L Potassium (3.5-5.1) mmol/L Chloride (98-107) mmol/L Carbon Dioxide (22-30) mmol/L Glucose (74-99) mg/dL POC Glucose (mg/dL) 122 H 189 H (75-99) mg/dL Calcium (8.4-10.2) mg/dL Total Bilirubin (0.2-1.3) mg/dL Alkaline Phosphatase (38-126) U/L Total Protein (6.3-8.2) g/dL Albumin (3.5-5.0) g/dL 11/01/18 11/01/18 Range/Units 09:49 11:04 RBC (3.80-5.40) m/uL Hgb (11.4-16.0) gm/dL Hct (34.0-46.0) % MCHC (31.0-37.0) g/dL RDW (11.5-15.5) % Plt Count (150-450) k/uL Lymphocytes # (1.0-4.8) k/uL Sodium 134 L (137-145) mmol/L Potassium 5.5 H (3.5-5.1) mmol/L Chloride 108 H (98-107) mmol/L Carbon Dioxide 21 L (22-30) mmol/L Glucose 183 H (74-99) mg/dL POC Glucose (mg/dL) 174 H (75-99) mg/dL Calcium 7.9 L (8.4-10.2) mg/dL Total Bilirubin 1.9 H (0.2-1.3) mg/dL Alkaline Phosphatase 175 H (38-126) U/L Total Protein 5.1 L (6.3-8.2) g/dL Albumin 2.1 L (3.5-5.0) g/dL Assessment and Plan Plan: (1) Hepatocellular carcinoma - Liver Lesions with history of primary cancer per the patient and family - Has not yet seen or followed with Medical Oncology, although per patient received chemoembolization to liver in 2010 and 2014 at [facility] - Await medical records. Will send a second request - Further treatment plans to follow. Not acute situation (2) Intractable pain - Continue to monitor pain closely and adjust long acting and breakthrough PO accordingly to allow relief that can be adequate at home. - Continued education (3)Diverticulitis - - Resulting in Ileostomy, Denies malignacy association (4) UTI - - treated with Antibiotics, secondary vaginal candiasis (5) Ascites: - Therapeutic and Diagnostic Paracentesis ordered - Discussed with Medical Team (6) Mild thrombocytopenia - Likely Secondary to Cirrhosis (seen on CT scan) - Platlet count remains stable in a safe range above 50K (7) Hyperkalemia - - per Medicine
[2018-11-01 15:58] LABS: INR 1.5 (<1.2); Prothrombin Time 14.7 sec (9.0-12.0)
[2018-11-01 17:14] LABS: Glucose,Whole Blood 117 mg/dL (75-99)
[2018-11-01 20:39] LABS: Glucose,Whole Blood 181 mg/dL (75-99)
--- NOTE | 2018-11-02 00:07 | PN ---
PROGRESS NOTE DATE OF SERVICE: 11/01/2018. REASON FOR FOLLOWUP: Infectious diarrhea. INTERVAL HISTORY: The patient is afebrile. She is still complaining of pain around the colostomy site. The diarrhea is off and on, not persistent. No blood or mucus in the stool. Denies having any chest pain or shortness of breath or cough. PHYSICAL EXAMINATION: Blood pressure 92/47 with a pulse of 62, temperature 98.8. She is 97% on room air. General description is an elderly female lying in bed in no distress. Respiratory system: Unlabored breathing. Clear to auscultation anteriorly. Heart S1, S2. Regular rate and rhythm. Abdomen soft. No tenderness. No guarding. No rigidity. Extremities: No edema of the feet. LABS: Hemoglobin 9.1, white count 4.8 with a BUN of 11, creatinine 0.97. DIAGNOSTIC IMPRESSION AND PLAN: Patient with infectious diarrhea. Stool has been positive for MRSA. The patient is currently covered with vancomycin p.o. that will continue to finish a 2 week course of therapy, Questran to continue for symptomatic relief and continue supportive care. MMODL / IJN: [id number] /
[2018-11-02] MEDS: HYDROmorphone 0.5 MG/0.5 ML SYRINGE IVP PRN ×2 (01:48→09:11)
[2018-11-02] MEDS: CHERRY FLAVOR 60 ML BOTTLE PO SCH ×5 (01:50→23:10)
[2018-11-02] MEDS: VANCOMYCIN ORAL SOLUTION 250 MG/5 ML BOTTLE PO SCH ×5 (01:50→23:10)
[2018-11-02] MEDS: MORPHINE SULFATE IR 15 MG TABLET PO PRN ×2 (05:28→20:19)
[2018-11-02 07:04] LABS: Glucose,Whole Blood 109 mg/dL (75-99)
[2018-11-02 08:37] LABS: Anisocytosis Slight; Basophils % (A) 0 %; Eosinophils # (A) 0.1 k/uL (0-0.7); Eosinophils % (A) 3 %; HCT 29.1 % (34.0-46.0); HGB 9.3 gm/dL (11.4-16.0); Hypochromasia Moderate; Lymphocytes # (A) 0.8 k/uL (1.0-4.8); Lymphocytes % (A) 17 %; MCH 30.9 pg (25.0-35.0); MCV 96.4 fL (80.0-100.0); Macrocytosis Slight; Mean Platelet Volume 9.5; Monocytes # (A) 0.3 k/uL (0-1.0); Monocytes % (A) 6 %; Neutrophils # (A) 3.2 k/uL (1.3-7.7); Neutrophils % (A) 70 %; RBC 3.02 m/uL (3.80-5.40); RDW 17.8 % (11.5-15.5); WBC 4.6 k/uL (3.8-10.6)
[2018-11-02 08:50] LABS: Platelet Count 53 k/uL (150-450)
[2018-11-02 08:52] LABS: Albumin 2.2 g/dL (3.5-5.0); Potassium 4.8 mmol/L (3.5-5.1); Total Bilirubin 1.8 mg/dL (0.2-1.3); Total Protein 5.3 g/dL (6.3-8.2)
[2018-11-02] MEDS: NYSTATIN 100,000 UNIT/ML SUSP 500,000 UNIT/5 ML CUP PO SCH ×4 (09:07→23:10)
[2018-11-02] MEDS: PANTOPRAZOLE 40 MG TABLET PO SCH ×2 (09:07→17:59)
[2018-11-02] MEDS: METOPROLOL TARTRATE 12.5 MG TAB PO SCH (09:07)
[2018-11-02] MEDS: MAGNESIUM OXIDE 400 MG TAB PO SCH (09:08)
[2018-11-02] MEDS: FUROSEMIDE 40 MG TAB PO SCH (09:08)
[2018-11-02] MEDS: MORPHINE SULFATE ER 15 MG TABLET PO SCH ×2 (09:08→20:19)
[2018-11-02] MEDS: clonazePAM 0.5 MG TAB PO SCH (09:09)
[2018-11-02] MEDS: INSULIN NPH 300 UNIT/3 ML VIAL SQ SCH ×2 (09:10→20:20)
[2018-11-02] MEDS: INSULIN REGULAR 100 UNIT/ML VIAL SQ SCH ×3 (09:10→17:58)
[2018-11-02] MEDS: SUCRALFATE 1 GM TAB PO SCH ×2 (09:11→20:19)
[2018-11-02] MEDS: DICYCLOMINE 10 MG CAP PO SCH ×3 (09:11→23:10)
[2018-11-02] MEDS: CHOLESTYRAMINE (WITH SUGAR) 4 GM PACKET PO SCH ×2 (09:11→17:54)
[2018-11-02] MEDS: MICONAZOLE NITRATE 2% CREAM 14 GM TUBE TOPICAL SCH ×2 (09:17→20:20)
[2018-11-02] MEDS ORDERED: HYDROcodone/APAP 10-325MG 1 EACH TAB PO PRN (10:23)
[2018-11-02] MEDS ORDERED: HYDROmorphone 0.5 MG/0.5 ML SYRINGE IVP PRN (10:24)
[2018-11-02 11:42] LABS: Glucose,Whole Blood 229 mg/dL (75-99)
--- NOTE | 2018-11-02 11:46 | P.PN ---
Subjective Progress Note Date: 11/02/18 The patient states that her pain is overall reasonably controlled with her current regimen. She is needing to use the breakthrough pain medications about 4 times a day overall she was having some increased abdominal discomfort, due 2 ascites. No history of fevers/chills/nausea/vomiting. Bowel movements have been regular on lactulose. Objective - Vital Signs Vital signs: Vital Signs Temp 98.5 F 11/02/18 05:00 Pulse 64 11/02/18 10:55 Resp 16 11/02/18 10:55 BP 105/61 11/02/18 10:55 Pulse Ox 100 11/02/18 10:55 Intake & Output 11/01/18 11/02/18 11/02/18 18:59 06:59 18:59 Intake Total 200 Balance 200 Weight 90.718 kg Intake: Oral 200 Other: Voiding Method Toilet Toilet # Voids 3 2 # Bowel Movements 4 2 - Constitutional General appearance: Present: no acute distress - EENT Eyes: Present: EOMI ENT: Present: hearing grossly normal, normal oropharynx - Respiratory Respiratory: bilateral: CTA - Cardiovascular Rhythm: regular Heart sounds: normal: S1, S2 - Gastrointestinal Gastrointestinal Comment(s): RLQ ostomy Free fluid +ve by exam General gastrointestinal: Present: distended, normal bowel sounds - Integumentary Integumentary: Present: normal - Neurologic Neurologic: Present: CNII-XII intact - Musculoskeletal Musculoskeletal: Present: generalized weakness, strength equal bilaterally - Psychiatric Psychiatric: Present: A&O x's 3, appropriate affect - Labs CBC & Chem 7: 11/02/18 07:48 11/02/18 07:48 Labs: Abnormal Lab Results - Last 24 Hours (Table) 11/01/18 11/01/18 11/01/18 Range/Units 15:35 17:12 20:29 RBC (3.80-5.40) m/uL Hgb (11.4-16.0) gm/dL Hct (34.0-46.0) % RDW (11.5-15.5) % Plt Count (150-450) k/uL Lymphocytes # (1.0-4.8) k/uL PT 14.7 H (9.0-12.0) sec INR 1.5 H (<1.2) Sodium (137-145) mmol/L Chloride (98-107) mmol/L Carbon Dioxide (22-30) mmol/L Glucose (74-99) mg/dL POC Glucose (mg/dL) 117 H 181 H (75-99) mg/dL Calcium (8.4-10.2) mg/dL Total Bilirubin (0.2-1.3) mg/dL Alkaline Phosphatase (38-126) U/L Total Protein (6.3-8.2) g/dL Albumin (3.5-5.0) g/dL 11/02/18 11/02/18 11/02/18 Range/Units 07:03 07:48 07:48 RBC 3.02 L (3.80-5.40) m/uL Hgb 9.3 L (11.4-16.0) gm/dL Hct 29.1 L (34.0-46.0) % RDW 17.8 H (11.5-15.5) % Plt Count 53 L (150-450) k/uL Lymphocytes # 0.8 L (1.0-4.8) k/uL PT (9.0-12.0) sec INR (<1.2) Sodium 135 L (137-145) mmol/L Chloride 110 H (98-107) mmol/L Carbon Dioxide 21 L (22-30) mmol/L Glucose 103 H (74-99) mg/dL POC Glucose (mg/dL) 109 H (75-99) mg/dL Calcium 8.0 L (8.4-10.2) mg/dL Total Bilirubin 1.8 H (0.2-1.3) mg/dL Alkaline Phosphatase 212 H (38-126) U/L Total Protein 5.3 L (6.3-8.2) g/dL Albumin 2.2 L (3.5-5.0) g/dL Assessment and Plan (1) Hepatocellular carcinoma Narrative/Plan: The patient has had interventional procedure so far for treatment, and has not had any systemic therapy or seen a medical oncologist previously. I had a detailed discussion with her, regarding treatment options going forward. At this time we have requested medical records but have not received them. The patient's treatment so far has been at [facility]. She lives in [place], and would like to have treatment here. She states that she was told that she needs to start systemic therapy, but as noted, we do not have any records yet. She was advised that we can certainly establish follow-up and treatment, with systemic therapy locally. However if she were a candidate for additional interventional procedures, he would not be able to provide does locally and she would have to go back to [facility]. Therefore at this time, her follow-up will depend on what her records show, regarding prior treatment, and future treatment options Current Visit: Yes Status: Acute Priority: High Code(s): C22.0 - LIVER CELL CARCINOMA SNOMED Code(s): 757513342 (2) Intractable pain Narrative/Plan: Related to malignancy. Pain is currently controlled reasonably well on her present regimen. Continue same. There has been some worsening because of ascites, which hopefully will improve with the plan paracentesis today. Current Visit: Yes Status: Acute Priority: Medium Code(s): R52 - PAIN, UNSPECIFIED SNOMED Code(s): 89159322 (3) Ascites Narrative/Plan: The patient has had symptomatic ulceration, and paracentesis has been ordered. At this time it is not known if the ascites is malignant, or transudative due to her underlying liver cirrhosis. Appropriate testing has been ordered on the fluid. Current Visit: Yes Status: Acute Code(s): R18.8 - OTHER ASCITES SNOMED Code(s): 370575136
--- NOTE | 2018-11-02 13:00 | US ---
Therapeutic paracentesis. DATE OF EXAM: 11/02/2018 CLINICAL HISTORY: Ascites The procedure was discussed with the patient. The risks, complications, benefits, and alternatives we re discussed and any questions were answered. Informed consent was obtained. The patient was placed s upine on the ultrasound table and prepped and draped in the usual sterile fashion. All elements of maximal barrier technique were utilized. Under ultrasound guidance, access into the right lower quadrant was obtained, via the paracentesis catheter system and direct ultrasound guidanc e. Approximately 1.4 liters of straw-colored fluid was removed. The patient was stable throughout the pr ocedure and remained stable upon discharge from Department of Radiology. IMPRESSION: Successful therapeutic paracentesis under ultrasound guidance.
--- NOTE | 2018-11-02 14:29 | P.PN ---
Subjective Progress Note Date: 11/02/18 This is a 73-year-old female patient of Dr. Kurtz. Patient presented to the emergency room with complaints of abdominal pain with nausea vomiting and diarrhea. Patient does have a known past medical history of Primary liver cancer in which she has received last chemotherapy, hypertension, diverticulitis with ileostomy placement and diabetes mellitus. CT of abdomen and pelvis completed showing liver that is somewhat small and irregular consistent with cirrhosis. Multiple liver masses. Moderate ascites. Small bowel mesenteric edema. Colostomy with parastomal hernia. No evidence of bowel obstruction. CT completed showing sinus bradycardia with premature atrial complexes. Left axis deviation. Right bundle branch block. patient has been consulted for oncology services. Morphine has been ordered for pain control. Home meds resumed. Lasix and Aldactone currently on hold due to acute kidney injury. Will reassess lab work. UA positive for leukocyte esterase. Will start Cipro antibiotic. Urine culture ordered. At this time patient denies chest pain or shortness of breath. Patient denies nausea vomiting or diarrhea. Patient denies any urinary burning or frequency. On 10/24/2018 patient is currently resting in bed. Patient was seen by oncology services. Patient remains on Cipro for UTI. Patient is still complaining of some abdominal discomfort. At this time patient denies chest pain or shortness of breath. Patient denies nausea vomiting or diarrhea. Patient denies any urinary burning or frequency 10/25/2018 patient still complaining of abdominal pain. She is having multiple loose stools. Stool culture growing presumptive staph aureus. She remains on Cipro for UTI. She is complaining of pain in jaw area near her ear. Denies any sore throat. Denies any earache. Denies chest pain or shortness of breath. Does report some nausea no actual vomiting. No blood in the stools. Denies any burning with urination. On 10/26/2018. Patient is alert and oriented 3 resting in bed. Patient is still complaining of some abdominal pain along with jaw discomfort. Patient is currently on MS Contin and morphine IV for breakthrough pain. Patient denies any pain to ear throat or mouth. No sores present in mouth. Patient denies any nausea or vomiting. Infectious disease has been consulted On 10/27/2018 patient is alert and oriented 3 resting in bed. Patient jaw discomfort has significantly improved. At this time patient is complaining more of abdominal discomfort. Patient denies chest pain or shortness of breath. Patient denies any nausea or vomiting. Patient is having loose stools through ostomy. Patient denies any urinary burning or frequency On 10/28/2018 patient is alert and oriented 3. Patient is still complaining of increased output from ostomy site with abdominal discomfort. Dr. Esparza filleatha for infectious disease. Questran 4 g twice a day and continue by mouth vancomycin. Patient denies any nausea or vomiting. Patient denies any urinary burning or frequency. On 10/29/2018 patient is alert and oriented 3 she had episode of severe pain in the abdomen last night requiring IV Dilaudid administration. There is no fever or chills no headache no dizziness no chest pain shortness of breath no cough no vomiting at this time and no urinary symptoms 10/30/2018 patient is seen and examined on the medical floor she is alert and oriented 3 in no apparent distress she is still complaining of abdominal pain and complaining of diarrhea otherwise there is no fever or chills no headache or dizziness no chest pain no shortness of breath no cough no nausea or vomiting and no urinary symptoms On 10/31/2018 patient is currently alert and oriented 3. Patient states she is still having abdominal discomfort with increased ostomy output. Patient remains on by mouth vancomycin and Questran this time patient denies chest pain. Patient denies nausea vomiting. Patient denies any urinary burning or frequency. On 11/01/2018 patient remains alert and oriented 3 patient is still having some abdominal discomfort with increased ostomy output. Patient also complaining of increased ascites patient. Patient states she gets to drained every 2 weeks due to her liver cancer. Will discuss case with oncology services. At the time patient denies chest pain or shortness of breath. Patient denies nausea vomiting or diarrhea. Patient denies any urinary burning or frequency. On 11/02/2018 patient is alert and oriented 3. Patient's currently status post paracentesis. Patient states she feels slightly improved. Pain meds have been adjusted per oncology services. An attempt patient denies chest pain or shortness breath. Patient denies nausea vomiting or diarrhea. Denies any urinary burning or frequency. Objective - Vital Signs Vital signs: Vital Signs Temp 98.7 F 11/02/18 11:59 Pulse 61 11/02/18 11:59 Resp 16 11/02/18 11:59 BP 90/40 11/02/18 11:59 Pulse Ox 99 11/02/18 11:59 Intake & Output 11/01/18 11/02/18 11/02/18 18:59 06:59 18:59 Intake Total 200 Output Total 1400 Balance 200 -1400 Weight 90.718 kg Intake: Oral 200 Output: Other 1400 Other: Voiding Method Toilet Toilet Toilet # Voids 3 2 4 # Bowel Movements 4 2 - Exam Head normocephalic Neck supple Lungs clear to auscultation bilaterally no wheezing or crackles Heart regular rate and rhythm S1-S2, no rub or gallop Abdomen is soft nontender nondistended positive bowel sounds no hepatosplenomegaly. Right lower quadrant ileostomy in place no signs of erythema. Some tenderness to palpation around stoma Extremities no edema Neuro alert and orientated to 3 - Labs CBC & Chem 7: 11/02/18 07:48 11/02/18 07:48 Labs: Abnormal Lab Results - Last 24 Hours (Table) 11/01/18 11/01/18 11/01/18 Range/Units 15:35 17:12 20:29 RBC (3.80-5.40) m/uL Hgb (11.4-16.0) gm/dL Hct (34.0-46.0) % RDW (11.5-15.5) % Plt Count (150-450) k/uL Lymphocytes # (1.0-4.8) k/uL PT 14.7 H (9.0-12.0) sec INR 1.5 H (<1.2) Sodium (137-145) mmol/L Chloride (98-107) mmol/L Carbon Dioxide (22-30) mmol/L Glucose (74-99) mg/dL POC Glucose (mg/dL) 117 H 181 H (75-99) mg/dL Calcium (8.4-10.2) mg/dL Total Bilirubin (0.2-1.3) mg/dL Alkaline Phosphatase (38-126) U/L Total Protein (6.3-8.2) g/dL Albumin (3.5-5.0) g/dL 11/02/18 11/02/18 11/02/18 Range/Units 07:03 07:48 07:48 RBC 3.02 L (3.80-5.40) m/uL Hgb 9.3 L (11.4-16.0) gm/dL Hct 29.1 L (34.0-46.0) % RDW 17.8 H (11.5-15.5) % Plt Count 53 L (150-450) k/uL Lymphocytes # 0.8 L (1.0-4.8) k/uL PT (9.0-12.0) sec INR (<1.2) Sodium 135 L (137-145) mmol/L Chloride 110 H (98-107) mmol/L Carbon Dioxide 21 L (22-30) mmol/L Glucose 103 H (74-99) mg/dL POC Glucose (mg/dL) 109 H (75-99) mg/dL Calcium 8.0 L (8.4-10.2) mg/dL Total Bilirubin 1.8 H (0.2-1.3) mg/dL Alkaline Phosphatase 212 H (38-126) U/L Total Protein 5.3 L (6.3-8.2) g/dL Albumin 2.2 L (3.5-5.0) g/dL 11/02/18 Range/Units 11:41 RBC (3.80-5.40) m/uL Hgb (11.4-16.0) gm/dL Hct (34.0-46.0) % RDW (11.5-15.5) % Plt Count (150-450) k/uL Lymphocytes # (1.0-4.8) k/uL PT (9.0-12.0) sec INR (<1.2) Sodium (137-145) mmol/L Chloride (98-107) mmol/L Carbon Dioxide (22-30) mmol/L Glucose (74-99) mg/dL POC Glucose (mg/dL) 229 H (75-99) mg/dL Calcium (8.4-10.2) mg/dL Total Bilirubin (0.2-1.3) mg/dL Alkaline Phosphatase (38-126) U/L Total Protein (6.3-8.2) g/dL Albumin (3.5-5.0) g/dL Assessment and Plan Assessment: 1. Abdominal pain with nausea vomiting diarrhea. Stool culture positive presumptive staph aureus. Consult ID. C. diff negative. Abdominal pelvis CT showing a liver that is somewhat small and irregular consistent with cirrhosis. Multiple liver masses. Moderate ascites. Small bowel mesenteric edema. Colostomy with parastomal hernia. No evidence of bowel obstruction. Continue morphine 15 mg every 12 hours. Stool culture currently positive for MRSA. Infectious disease following. Patient remains on oral vancomycin. 2. Urinary tract infection : Urine culture pending. Infectious disease consulted. Culture currently growing krish glabrata 3. Acute kidney injury likely related to dehydration. Kidney functions have improved. Initial creatinine 1.39 and bun 33. Labs have been reordered. Resolved. Currently on IV fluids 4. Hyperkalemia. Resolved 5. Primary liver cancer. Patient has been getting chemotherapy to [facility] but is planning to switch to local oncologist. Per oncology services obtaining records from plan: Plan on obtaining tumor markers and considering CT chest to complete staging workup 6. Essential hypertension. Continue current medications 7. Anemia. Hemoglobin dropped to 10.6. Check iron studies . B12 and folate levels are elevated. 8. Diabetes mellitus,Insulin dependent. Hemoglobin A1c 7.5. Patient having hyperglycemia. We will increase her insulin NPH 20 units twice a day 9. Thrombocytopenia platelets dropping to 67. DVT prophylaxis DC'd will order SCDs at this time. Oncology services are following. They felt thrombocytopenia secondary to cirrhosis 10. Elevated liver enzymes likely due to liver cancer. Alkaline phosphatase 228, ALT 46 and AST 44 total bilirubin also elevated at 1.4. Oncology services are following 11. History of ileostomy due to diverticulitis. No malignancy reported per oncology 12. Severe protein calorie malnutrition: start glucerna shakes TID 13. Pain to jaw. Patient remains on MS Contin and morphine for breakthrough pain at this time. Patient denies pain. Ears mouth or throat. No sores present mouth. CT of soft tissue neck dated showing minimal temporomandibular joint arthroplasty bilaterally in the area of the patinient's pain. If there is any further concern MRI of the temporomandibular joint could be performed. No parotid gland abnormality in the patient's areas dated pain. No evidence of sialoadenitis. And states Pain has improved 14. Hyperkalemia. Potassium 5.2. We'll hold Aldactone at this time and recheck in a.m. potassium 5.5 patient did receive 1 dose.repeat 4.8 15. Increased ascites. Patient states she gets drained every 2 weeks and [facility] [place] due to her liver cancer. Will discuss with cardiology services and await the recommendations. Patient is currently status post paracentesis DVT prophylaxis SCDs due to thrombocytopenia. GI prophylaxis Protonix. I performed an examination of the patient and discussed their management with the Nurse Practitioner. I have reviewed the Nurse Practitioner's notes and agree with the documented findings and plan of care
[2018-11-02 15:31] LABS: Appearance,BF Cloudy
[2018-11-02 15:32] LABS: Nucleated Cells, Body Fluid 90 /uL; RBC, Body Fluid 180 /uL
[2018-11-02 15:34] LABS: Mononuclear WBC,Body Fluid 87 %; Polynuclear WBC,Body Fluid 13 %; Total Cells Counted,Body Fluid 100
[2018-11-02 17:23] LABS: Glucose,Whole Blood 138 mg/dL (75-99)
--- NOTE | 2018-11-02 21:30 | PN ---
PROGRESS NOTE DATE OF SERVICE: 11/02/2018. REASON FOR FOLLOW UP: Infectious diarrhea and MRSA infection. INTERVAL HISTORY: The patient is afebrile. The patient has been complaining of off and on pain around her colostomy site. The patient denies having any chest pain, shortness of breath or cough or any worsening diarrhea. PHYSICAL EXAMINATION: Blood pressure is 105/61 with a pulse of 74, temperature 98.7, she is 99% on room air. GENERAL DESCRIPTION: An elderly female lying in bed in no distress. RESPIRATORY SYSTEM: Unlabored breathing. LUNGS: Clear to auscultation anteriorly. HEART: S1, S2. Regular rate and rhythm. ABDOMEN: Soft, no distention. No guarding or rigidity. LABS: Hemoglobin 9.1, 4.6, BUN of 12, creatinine 0.96. DIAGNOSTIC IMPRESSION AND PLAN: Patient with infectious diarrhea. Stool culture positive for MRSA. The patient is currently covered with oral vancomycin which will be continued. The patient also had paracentesis with white count , suggestive of SBP. Continue to monitor closely. Continue supportive care. MMODL / IJN: [id number] /
[2018-11-02 21:56] LABS: Glucose,Whole Blood 139 mg/dL (75-99)
[2018-11-02 22:09] LABS: Total Protein, Body Fluid 927 mg/dL
[2018-11-03] MEDS: MORPHINE SULFATE IR 15 MG TABLET PO PRN ×2 (04:58→11:29)
[2018-11-03] MEDS: VANCOMYCIN ORAL SOLUTION 250 MG/5 ML BOTTLE PO SCH ×3 (04:59→17:22)
[2018-11-03] MEDS: CHERRY FLAVOR 60 ML BOTTLE PO SCH ×3 (05:00→17:22)
[2018-11-03 07:03] LABS: Glucose,Whole Blood 123 mg/dL (75-99)
[2018-11-03 08:24] LABS: Anisocytosis Slight; Basophils % (A) 0 %; Eosinophils # (A) 0.2 k/uL (0-0.7); Eosinophils % (A) 5 %; HCT 27.8 % (34.0-46.0); HGB 8.9 gm/dL (11.4-16.0); Hypochromasia Moderate; Lymphocytes # (A) 0.8 k/uL (1.0-4.8); Lymphocytes % (A) 20 %; MCH 30.9 pg (25.0-35.0); MCHC 31.9 g/dL (31.0-37.0); Macrocytosis Slight; Mean Platelet Volume 9.2; Monocytes # (A) 0.3 k/uL (0-1.0); Monocytes % (A) 7 %; Neutrophils # (A) 2.5 k/uL (1.3-7.7); Neutrophils % (A) 64 %; RBC 2.86 m/uL (3.80-5.40); RDW 17.7 % (11.5-15.5); WBC 3.8 k/uL (3.8-10.6)
[2018-11-03 08:25] LABS: Platelet Count 51 k/uL (150-450)
[2018-11-03 08:28] LABS: Calcium 7.5 mg/dL (8.4-10.2); Potassium 4.9 mmol/L (3.5-5.1); Total Bilirubin 1.5 mg/dL (0.2-1.3); Total Protein 4.9 g/dL (6.3-8.2)
[2018-11-03] MEDS: METOPROLOL TARTRATE 12.5 MG TAB PO SCH (09:21)
[2018-11-03] MEDS: MORPHINE SULFATE ER 15 MG TABLET PO SCH (09:21)
[2018-11-03] MEDS: NYSTATIN 100,000 UNIT/ML SUSP 500,000 UNIT/5 ML CUP PO SCH ×3 (09:21→17:22)
[2018-11-03] MEDS: PANTOPRAZOLE 40 MG TABLET PO SCH ×2 (09:22→17:25)
[2018-11-03] MEDS: clonazePAM 0.5 MG TAB PO SCH (09:22)
[2018-11-03] MEDS: MAGNESIUM OXIDE 400 MG TAB PO SCH (09:23)
[2018-11-03] MEDS: FUROSEMIDE 40 MG TAB PO SCH (09:23)
[2018-11-03] MEDS: DICYCLOMINE 10 MG CAP PO SCH ×2 (09:23→17:23)
[2018-11-03] MEDS: CHOLESTYRAMINE (WITH SUGAR) 4 GM PACKET PO SCH ×2 (09:23→17:22)
[2018-11-03] MEDS: SUCRALFATE 1 GM TAB PO SCH (09:23)
[2018-11-03] MEDS: INSULIN REGULAR 100 UNIT/ML VIAL SQ SCH ×3 (09:24→17:23)
[2018-11-03] MEDS: INSULIN NPH 300 UNIT/3 ML VIAL SQ SCH (09:24)
[2018-11-03] MEDS: MICONAZOLE NITRATE 2% CREAM 14 GM TUBE TOPICAL SCH (09:30)
[2018-11-03 11:27] LABS: Glucose,Whole Blood 119 mg/dL (75-99)
[2018-11-03 11:52] VITALS: BP 89/41; PULSE 55; RESP 16; TEMP 98.7
--- NOTE | 2018-11-03 13:36 | P.DS ---
Providers Date of admission: 10/22/18 23:24 Expected date of discharge: 11/03/18 Attending physician: Artemio Lea Consults: 10/22/18 22:20 Consult Physician Stat Consulting Provider: Viri Yadav Consult Reason/Comments: primary liver cancer Do you want consulting provider notified?: Yes 10/25/18 12:42 Consult Physician Routine Consulting Provider: Jaylene Esparza Consult Reason/Comments: stool positive for staph aureus Do you want consulting provider notified?: Yes Primary care physician: Gilma Martinez Hospital Course: Discharge Diagnosis 1. Abdominal pain with nausea vomiting diarrhea. Stool culture positive presumptive staph aureus. Consult ID. C. diff negative. Abdominal pelvis CT showing a liver that is somewhat small and irregular consistent with cirrhosis. Multiple liver masses. Moderate ascites. Small bowel mesenteric edema. Colostomy with parastomal hernia. No evidence of bowel obstruction. Continue morphine 15 mg every 12 hours. Stool culture currently positive for MRSA. Infectious disease following. Patient remains on oral vancomycin. Discussed case with Dr. Esparza. Patient will be DC'd home on oral Vancomycin for 7 more days. 2. Urinary tract infection : Urine culture pending. Infectious disease consulted. Culture currently growing krish glabrata 3. Acute kidney injury likely related to dehydration. Kidney functions have improved. Initial creatinine 1.39 and bun 33. Labs have been reordered. Resolved. Currently on IV fluids 4. Hyperkalemia. Resolved 5. Primary liver cancer. Patient has been getting chemotherapy to [facility] but is planning to switch to local oncologist. Per oncology services obtaining records from plan: Plan on obtaining tumor markers and considering CT chest to complete staging workup. patient to continue to follow up with oncology services next week 6. Essential hypertension. Continue current medications 7. Anemia. Hemoglobin dropped to 10.6. Check iron studies . B12 and folate levels are elevated. Patient to follow-up with oncology services next week 8. Diabetes mellitus,Insulin dependent. Hemoglobin A1c 7.5. Patient having hyperglycemia. We will increase her insulin NPH 20 units twice a day 9. Thrombocytopenia platelets dropping to 67. DVT prophylaxis DC'd will order SCDs at this time. Oncology services are following. They felt thrombocytopenia secondary to cirrhosis 10. Elevated liver enzymes likely due to liver cancer. Alkaline phosphatase 228, ALT 46 and AST 44 total bilirubin also elevated at 1.4. Oncology services are following 11. History of ileostomy due to diverticulitis. No malignancy reported per oncology 12. Severe protein calorie malnutrition: start glucerna shakes TID 13. Pain to jaw. Patient remains on MS Contin and morphine for breakthrough pain at this time. Patient denies pain. Ears mouth or throat. No sores present mouth. CT of soft tissue neck dated showing minimal temporomandibular joint arthroplasty bilaterally in the area of the patinient's pain. If there is any further concern MRI of the temporomandibular joint could be performed. No parotid gland abnormality in the patient's areas dated pain. No evidence of sialoadenitis. And states Pain has improved 14. Hyperkalemia. Potassium 5.2. We'll hold Aldactone at this time and recheck in a.m. potassium 5.5 patient did receive 1 dose.repeat 4.8. Aldactone will be held at discharge 15. Increased ascites. Patient states she gets drained every 2 weeks and [facility] [place] due to her liver cancer. Will discuss with cardiology services and await the recommendations. Patient is currently status post paracentesis Hospital course This is a 73-year-old female patient of Dr. Kurtz. Patient presented to the emergency room with complaints of abdominal pain with nausea vomiting and diarrhea. Patient does have a known past medical history of Primary liver cancer in which she has received last chemotherapy, hypertension, diverticulitis with ileostomy placement and diabetes mellitus. CT of abdomen and pelvis completed showing liver that is somewhat small and irregular consistent with cirrhosis. Multiple liver masses. Moderate ascites. Small bowel mesenteric edema. Colostomy with parastomal hernia. No evidence of bowel obstruction. CT completed showing sinus bradycardia with premature atrial complexes. Left axis deviation. Right bundle branch block. patient has been consulted for oncology services. Morphine has been ordered for pain control. Home meds resumed. Lasix and Aldactone currently on hold due to acute kidney injury. Will reassess lab work. UA positive for leukocyte esterase. Will start Cipro antibiotic. Urine culture ordered. At this time patient denies chest pain or shortness of breath. Patient denies nausea vomiting or diarrhea. Patient denies any urinary burning or frequency. On 10/24/2018 patient is currently resting in bed. Patient was seen by oncology services. Patient remains on Cipro for UTI. Patient is still complaining of some abdominal discomfort. At this time patient denies chest pain or shortness of breath. Patient denies nausea vomiting or diarrhea. Patient denies any urinary burning or frequency 10/25/2018 patient still complaining of abdominal pain. She is having multiple loose stools. Stool culture growing presumptive staph aureus. She remains on Cipro for UTI. She is complaining of pain in jaw area near her ear. Denies any sore throat. Denies any earache. Denies chest pain or shortness of breath. Does report some nausea no actual vomiting. No blood in the stools. Denies any burning with urination. On 10/26/2018. Patient is alert and oriented 3 resting in bed. Patient is still complaining of some abdominal pain along with jaw discomfort. Patient is currently on MS Contin and morphine IV for breakthrough pain. Patient denies any pain to ear throat or mouth. No sores present in mouth. Patient denies any nausea or vomiting. Infectious disease has been consulted On 10/27/2018 patient is alert and oriented 3 resting in bed. Patient jaw discomfort has significantly improved. At this time patient is complaining more of abdominal discomfort. Patient denies chest pain or shortness of breath. Patient denies any nausea or vomiting. Patient is having loose stools through ostomy. Patient denies any urinary burning or frequency On 10/28/2018 patient is alert and oriented 3. Patient is still complaining of increased output from ostomy site with abdominal discomfort. Dr. Isaias mendoza for infectious disease. Questran 4 g twice a day and continue by mouth vancomycin. Patient denies any nausea or vomiting. Patient denies any urinary burning or frequency. On 10/29/2018 patient is alert and oriented 3 she had episode of severe pain in the abdomen last night requiring IV Dilaudid administration. There is no fever or chills no headache no dizziness no chest pain shortness of breath no cough no vomiting at this time and no urinary symptoms 10/30/2018 patient is seen and examined on the medical floor she is alert and oriented 3 in no apparent distress she is still complaining of abdominal pain and complaining of diarrhea otherwise there is no fever or chills no headache or dizziness no chest pain no shortness of breath no cough no nausea or vomiting and no urinary symptoms On 10/31/2018 patient is currently alert and oriented 3. Patient states she is still having abdominal discomfort with increased ostomy output. Patient remains on by mouth vancomycin and Questran this time patient denies chest pain. Patient denies nausea vomiting. Patient denies any urinary burning or frequency. On 11/01/2018 patient remains alert and oriented 3 patient is still having some abdominal discomfort with increased ostomy output. Patient also complaining of increased ascites patient. Patient states she gets to drained every 2 weeks due to her liver cancer. Will discuss case with oncology services. At the time patient denies chest pain or shortness of breath. Patient denies nausea vomiting or diarrhea. Patient denies any urinary burning or frequency. On 11/02/2018 patient is alert and oriented 3. Patient's currently status post paracentesis. Patient states she feels slightly improved. Pain meds have been adjusted per oncology services. An attempt patient denies chest pain or shortness breath. Patient denies nausea vomiting or diarrhea. Denies any urinary burning or frequency. On 11/03/2018 patient is alert and oriented 3. Patient does state some improvement in abdominal discomfort. Discussed case with oncology and infectious disease. Patient has been cleared for discharge. Patient will be DC 'd home on Vanco to 50 every 6 hours for 7 more days. Patient to follow-up with oncology and primary care services for further pain management. At this time patient denies chest pain or shortness breath. Patient denies nausea vomiting or diarrhea. Patient denies any urinary burning or frequency. I performed an examination of the patient and discussed their management with the Nurse Practitioner. I have reviewed the Nurse Practitioner's notes and agree with the documented findings and plan of care Patient Condition at Discharge: Stable Plan - Discharge Summary Discharge Rx Participant: No New Discharge Prescriptions: New clonazePAM [KlonoPIN] 0.5 mg PO DAILY tab Nystatin 100,000 Unit/ml Susp [Mycostatin Oral Susp] 500,000 unit PO QID #12 cup Vancomycin Oral Solution 250 mg PO Q6HR 7 Days #140 ml Continue Sucralfate [Carafate] 1 gm PO QID Omeprazole [PriLOSEC] 20 mg PO BID Furosemide [Lasix] 40 mg PO DAILY Dicyclomine [Bentyl] 10 mg PO TID Ondansetron [Zofran ODT] 8 mg PO Q8HR Magnesium 200 mg PO DAILY Aspirin EC [Ecotrin Low Dose] 81 mg PO DAILY Morphine Sulfate ER [Ms Contin] 15 mg PO Q12HR Metoprolol Tartrate 12.5 mg PO DAILY Insulin Regular, Human [NovoLIN R] 8 unit SQ AC-TID Insulin NPH Human Isophane [NovoLIN N] 18 unit SQ BID Discontinued Spironolactone [Aldactone] 100 mg PO DAILY Discharge Medication List Dicyclomine [Bentyl] 10 mg PO TID 10/23/18 [History] Furosemide [Lasix] 40 mg PO DAILY 10/23/18 [History] Omeprazole [PriLOSEC] 20 mg PO BID 10/23/18 [History] Sucralfate [Carafate] 1 gm PO QID 10/23/18 [History] Aspirin EC [Ecotrin Low Dose] 81 mg PO DAILY 10/24/18 [History] Insulin NPH Human Isophane [NovoLIN N] 18 unit SQ BID 10/24/18 [History] Insulin Regular, Human [NovoLIN R] 8 unit SQ AC-TID 10/24/18 [History] Magnesium 200 mg PO DAILY 10/24/18 [History] Metoprolol Tartrate 12.5 mg PO DAILY 10/24/18 [History] Morphine Sulfate ER [Ms Contin] 15 mg PO Q12HR 10/24/18 [History] Ondansetron [Zofran ODT] 8 mg PO Q8HR 10/24/18 [History] Nystatin 100,000 Unit/ml Susp [Mycostatin Oral Susp] 500,000 unit PO QID #12 cup 11/03/18 [Rx] Vancomycin Oral Solution 250 mg PO Q6HR 7 Days #140 ml 11/03/18 [Rx] clonazePAM [KlonoPIN] 0.5 mg PO DAILY tab 11/03/18 [Rx] Follow up Appointment(s)/Referral(s): Cem Estrada MD [STAFF PHYSICIAN] - 1 Week Gilma Martinez MD [Primary Care Provider] - 1-2 days Jaylene Esparza MD [STAFF PHYSICIAN] - 1 Week Ambulatory/Diagnostic Orders: Complete Blood Count w/diff [LAB.AMB] Time Frame: 1 Week, Location: None Selected Comprehensive Metabolic Panel [LAB.AMB] Time Frame: 1 Week, Location: None Selected Activity/Diet/Wound Care/Special Instructions: Ileostomy Care Follow up with oncology services next week. Diet consistent carb heart healthy Activity as tolerated Discharge Disposition: HOME SELF-CARE
--- NOTE | 2018-11-03 15:22 | PN ---
PROGRESS NOTE DATE OF SERVICE: 11/03/2018 REASON FOR FOLLOWUP: Infectious diarrhea. INTERVAL HISTORY: The patient is afebrile. She is feeling better. Abdominal pain has improved. Diarrhea has slowed down and forming of stool. Slight nausea but no vomiting. PHYSICAL EXAMINATION: Blood pressure 90/44, pulse of 66, temperature 98.6, 98% on room air. General description is an elderly female, lying in bed in no distress. RESPIRATORY SYSTEM: Unlabored breathing, clear to auscultation anteriorly. HEART: S1, S2. Regular rate and rhythm. ABDOMEN: Soft, no tenderness. LABS: Hemoglobin 8.1, white count of 3.8, BUN of 12, creatinine 0.83. DIAGNOSTIC IMPRESSION AND PLAN: Patient with infectious diarrhea. Stool has been positive for methicillin-resistant Staphylococcus aureus. Patient seemed to have shown clinical improvement on oral Vancomycin for another week to finish a course of therapy along with Questran as needed. Continue supportive care. MMODL / IJN: [id number] /
--- NOTE | 2018-11-03 18:01 | P.PN ---
Subjective Progress Note Date: 11/03/18 Principal diagnosis: Hepatocellular Carcinoma Status post paracentesis, likely discharge today Objective - Vital Signs Vital signs: Vital Signs Temp 98.7 F 11/03/18 11:52 Pulse 55 L 11/03/18 11:52 Resp 16 11/03/18 11:52 BP 89/41 11/03/18 11:52 Pulse Ox 97 11/03/18 11:52 Intake & Output 11/02/18 11/03/18 11/03/18 18:59 06:59 18:59 Intake Total 200 Output Total 1400 Balance -1400 200 Intake: Oral 200 Output: Other 1400 Other: Voiding Method Toilet Toilet Toilet # Voids 4 2 # Bowel Movements 2 3 - Exam - Constitutional General appearance: Present: cooperative, no acute distress, obese - EENT EENT Comment(s): Right jaw appears less swollen, able to palpate jaw/TMJ with not as intense of a pain response from pt. Jaw has FROM Eyes: Present: anicteric sclerae, EOMI ENT: Present: normal oropharynx - Respiratory Respiratory: bilateral: CTA - Cardiovascular Heart sounds: normal: S1, S2 - Gastrointestinal General gastrointestinal: Present: normal bowel sounds,firm, increased ascite. Localized gastrointestinal: tender: RUQ, epigastric periumbilical - Integumentary Integumentary: Present: normal - Neurologic Neurologic: Present: CNII-XII intact - Musculoskeletal Musculoskeletal: Present: strength equal bilaterally - Psychiatric Psychiatric: Present: A&O x's 3, appropriate affect, intact judgment & insight - Labs CBC & Chem 7: 11/03/18 07:32 11/03/18 07:32 Labs: Abnormal Lab Results - Last 24 Hours (Table) 11/02/18 11/03/18 11/03/18 Range/Units 21:54 07:01 07:32 RBC 2.86 L (3.80-5.40) m/uL Hgb 8.9 L (11.4-16.0) gm/dL Hct 27.8 L (34.0-46.0) % RDW 17.7 H (11.5-15.5) % Plt Count 51 L (150-450) k/uL Lymphocytes # 0.8 L (1.0-4.8) k/uL Sodium (137-145) mmol/L Chloride (98-107) mmol/L Carbon Dioxide (22-30) mmol/L Glucose (74-99) mg/dL POC Glucose (mg/dL) 139 H 123 H (75-99) mg/dL Calcium (8.4-10.2) mg/dL Total Bilirubin (0.2-1.3) mg/dL Alkaline Phosphatase (38-126) U/L Total Protein (6.3-8.2) g/dL Albumin (3.5-5.0) g/dL 11/03/18 11/03/18 Range/Units 07:32 11:26 RBC (3.80-5.40) m/uL Hgb (11.4-16.0) gm/dL Hct (34.0-46.0) % RDW (11.5-15.5) % Plt Count (150-450) k/uL Lymphocytes # (1.0-4.8) k/uL Sodium 134 L (137-145) mmol/L Chloride 109 H (98-107) mmol/L Carbon Dioxide 21 L (22-30) mmol/L Glucose 114 H (74-99) mg/dL POC Glucose (mg/dL) 119 H (75-99) mg/dL Calcium 7.5 L (8.4-10.2) mg/dL Total Bilirubin 1.5 H (0.2-1.3) mg/dL Alkaline Phosphatase 187 H (38-126) U/L Total Protein 4.9 L (6.3-8.2) g/dL Albumin 2.0 L (3.5-5.0) g/dL Microbiology - Last 24 Hours (Table) 11/02/18 10:40 Gram Stain - Preliminary Ascites Fluid Body Fluid Culture - Preliminary 11/02/18 10:40 Anaerobic Culture - Preliminary Ascites Fluid Assessment and Plan Plan: (1) Hepatocellular carcinoma - Liver Lesions with history of primary cancer per the patient and family - Has not yet seen or followed with Medical Oncology, although per patient received chemoembolization to liver in 2010 and 2014 at [facility] - Await medical records. Will send a second request - Further treatment plans to follow. Not acute situation (2) Intractable pain - Continue to monitor pain closely and adjust long acting and breakthrough PO accordingly to allow relief that can be adequate at home. - Continued education (3)Diverticulitis - - Resulting in Ileostomy, Denies malignacy association (4) UTI - - treated with Antibiotics, secondary vaginal candiasis (5) Ascites: - Therapeutic and Diagnostic Paracentesis ordered - Discussed with Medical Team (6) Mild thrombocytopenia - Likely Secondary to Cirrhosis (seen on CT scan) - Platlet count remains stable in a safe range above 50K (7) Hyperkalemia - - per Medicine Plan: - Ok to discharge from oncology standpoint - Will obtain all records from [facility] (Did consult with Dr. Greg Bear) - MS contin q8-12 hours for pain, extended release, we will manage after follow -up in offie, will make follow-up in week
== END 2018-11-03 18:06 | disposition home or self-care (01) | DRG 391 ==
LOC: EC 17:28 → 3NMEDONC 22:20 → OBSVTOIN 23:24 → 3NMEDONC 10-30 18:21
PROVIDERS: ADMIT Internal Medicine; ATTEND Internal Medicine
PROC: 0W9G3ZZ Drainage of Peritoneal Cavity, Percutaneous Approach (ICD-10-PCS; principal; 2018-11-02)
DX: A09 Infectious gastroenteritis and colitis, unspecified (principal); E43 Unspecified severe protein-calorie malnutrition; C22.0 Liver cell carcinoma; D61.818 Other pancytopenia; N17.9 Acute kidney failure, unspecified; N39.0 Urinary tract infection, site not specified; R18.8 Other ascites; B37.3 Candidiasis of vulva and vagina; B95.62 Methicillin resistant Staphylococcus aureus infection as the cause of diseases classified elsewhere; D63.8 Anemia in other chronic diseases classified elsewhere; D69.59 Other secondary thrombocytopenia; E11.65 Type 2 diabetes mellitus with hyperglycemia; E86.0 Dehydration; E87.5 Hyperkalemia; F32.9 Major depressive disorder, single episode, unspecified; F41.9 Anxiety disorder, unspecified; I10 Essential (primary) hypertension; I45.10 Unspecified right bundle-branch block; I49.1 Atrial premature depolarization; K43.5 Parastomal hernia without obstruction or gangrene; K74.60 Unspecified cirrhosis of liver; K57.90 Diverticulosis of intestine, part unspecified, without perforation or abscess without bleeding; R68.84 Jaw pain; Z93.3 Colostomy status; Z68.29 Body mass index [BMI] 29.0-29.9, adult; Z79.899 Other long term (current) drug therapy; Z88.5 Allergy status to narcotic agent; Z88.0 Allergy status to penicillin; Z88.8 Allergy status to other drugs, medicaments and biological substances
CPT/HCPCS: 36415; 49083; 70491; 74176; 80053; 81001; 82105; 82150; 82378; 82550; 82553; 82607; 82728; 82747; 82945; 83036; 83540; 83550; 83615; 83690; 84132; 84157; 84484; 85025; 85610; 85730; 87045; 87046; 87070; 87075; 87086; 87205; 87324; 89050; 93005; 96374; 96375; 99285

== ENCOUNTER 2018-11-04 14:05 | Emergency (ER) | payer MEDICARE ==
[2018-11-04 14:16] VITALS: TEMP 98.5
[2018-11-04] MEDS ORDERED: MORPHINE SULFATE 4 MG/ML SYRINGE IV STA (14:53)
[2018-11-04] MEDS ORDERED: SODIUM CHLORIDE 0.9% 2,000 ML IV STA (14:53)
[2018-11-04] MEDS ORDERED: ONDANSETRON 4 MG/2 ML VIAL IVP STA (14:53)
[2018-11-04 15:14] LABS: Anisocytosis Slight; Basophils % (A) 1 %; Eosinophils # (A) 0.2 k/uL (0-0.7); Eosinophils % (A) 4 %; HCT 35.4 % (34.0-46.0); HGB 11.1 gm/dL (11.4-16.0); Hypochromasia Moderate; Lymphocytes # (A) 0.6 k/uL (1.0-4.8); Lymphocytes % (A) 13 %; MCH 30.3 pg (25.0-35.0); MCHC 31.3 g/dL (31.0-37.0); MCV 96.8 fL (80.0-100.0); Macrocytosis Slight; Mean Platelet Volume 8.9; Monocytes # (A) 0.3 k/uL (0-1.0); Monocytes % (A) 6 %; Neutrophils # (A) 3.1 k/uL (1.3-7.7); Neutrophils % (A) 73 %; RBC 3.66 m/uL (3.80-5.40); RDW 17.8 % (11.5-15.5); WBC 4.2 k/uL (3.8-10.6)
--- NOTE | 2018-11-04 15:19 | ED ---
Abdominal Pain HPI - General Chief Complaint: Abdominal Pain Stated Complaint: Abd pain Time Seen by Provider: 11/04/18 14:32 Source: patient, family, RN notes reviewed Mode of arrival: wheelchair Limitations: no limitations - History of Present Illness Initial Comments: 73-year-old female presents emergency Department for increasing abdominal pain. Patient has liver cancer along with recent staph infection of her colon. Patient is on vancomycin 250 mg. Patient also states that she's had multiple paracentesis. Patient states she's increasing abdominal pain since being discharged. She does take morphine at home. She reports feeling overall weak, run down. She's had high output in her ileostomy. Patient states that she has anterior everyone to 2 hours. Patient denies any no fever or chills no chest pain or shortness of breath. Patient states her physician is Dr. Kurtz, sees Dr. zabala and Dr. Gupta for infectious disease. - Related Data Home Medications Medication Instructions Recorded Confirmed Dicyclomine [Bentyl] 10 mg PO TID 10/23/18 11/04/18 Furosemide [Lasix] 40 mg PO DAILY 10/23/18 11/04/18 Omeprazole [PriLOSEC] 20 mg PO BID 10/23/18 11/04/18 Sucralfate [Carafate] 1 gm PO QID 10/23/18 11/04/18 Aspirin EC [Ecotrin Low Dose] 81 mg PO DAILY 10/24/18 11/04/18 Insulin NPH Human Isophane 18 unit SQ BID 10/24/18 11/04/18 [NovoLIN N] Insulin Regular, Human [NovoLIN R] 8 unit SQ AC-TID 10/24/18 11/04/18 Magnesium 200 mg PO DAILY 10/24/18 11/04/18 Metoprolol Tartrate 12.5 mg PO DAILY 10/24/18 11/04/18 Morphine Sulfate ER [Ms Contin] 15 mg PO Q12HR 10/24/18 11/04/18 Ondansetron [Zofran ODT] 8 mg PO Q8HR 10/24/18 11/04/18 Previous Rx's Medication Instructions Recorded Nystatin 100,000 Unit/ml Susp 500,000 unit PO QID #12 cup 11/03/18 [Mycostatin Oral Susp] Vancomycin HCl [Vancocin HCl] 250 mg PO Q6HR 7 Days #28 capsule 11/03/18 clonazePAM [KlonoPIN] 0.5 mg PO DAILY tab 11/03/18 Cholestyramine (with Sugar) 4 gm PO TID #21 packet 11/04/18 [Questran] Allergies Allergy/AdvReac Type Severity Reaction Status Date / Time GREG Inhibitors Allergy Cough Verified 11/04/18 14:35 amlodipine Allergy Rash/Hives Verified 11/04/18 14:35 oxycodone Allergy Rash/Hives Verified 11/04/18 14:35 Penicillins Allergy Rash/Hives Verified 11/04/18 14:35 hydromorphone [From Dilaudid] AdvReac Unknown Verified 11/04/18 14:35 sodium dodecyclbenzene Allergy Rash/Hives Uncoded 11/04/18 14:17 sulfonate Review of Systems ROS Statement: Those systems with pertinent positive or pertinent negative responses have been documented in the HPI. ROS Other: All systems not noted in ROS Statement are negative. Past Medical History Past Medical History: Cancer, Diabetes Mellitus, Hypertension, Liver Disease Additional Past Medical History / Comment(s): liver ca History of Any Multi-Drug Resistant Organisms: MRSA Date of last positivie culture/infection: 10/23/18 MDRO Source:: MRSA STOOL Past Surgical History: Bowel Resection Additional Past Surgical History / Comment(s): liver iliostomy Past Anesthesia/Blood Transfusion Reactions: No Reported Reaction Past Psychological History: Anxiety, Depression Smoking Status: Never smoker Past Alcohol Use History: None Reported Past Drug Use History: None Reported - Past Family History Mother History Unknown: Yes Family Medical History: Congestive Heart Failure (CHF) General Exam Limitations: no limitations General appearance: alert, in no apparent distress Head exam: Present: atraumatic, normocephalic, normal inspection Neck exam: Present: normal inspection. Absent: tenderness, meningismus, lymphadenopathy Respiratory exam: Present: normal lung sounds bilaterally. Absent: respiratory distress, wheezes, rales, rhonchi, stridor Cardiovascular Exam: Present: regular rate, normal rhythm, normal heart sounds. Absent: systolic murmur, diastolic murmur, rubs, gallop, clicks GI/Abdominal exam: Present: soft, tenderness (Moderate right-sided), normal bowel sounds, other (Stool noted in ostomy bag). Absent: distended, guarding, rebound, rigid Neurological exam: Present: alert, oriented X3, CN II-XII intact, reflexes normal. Absent: motor sensory deficit Skin exam: Present: warm, dry, intact, normal color. Absent: rash Course Vital Signs 11/04/18 11/04/18 11/04/18 14:14 15:16 17:00 Temperature 98.5 F Pulse Rate 60 57 L Respiratory 20 18 16 Rate Blood Pressure 98/56 110/45 O2 Sat by Pulse 99 98 Oximetry Medical Decision Making - Medical Decision Making 73-year-old female presented for increased up out of her ostomy, increased pain. Patient's labwork reviewed no major abnormality's from prior labs. Patient medical records were thoroughly reviewed. Patient does have underlying stool infection with MRSA currently on vancomycin. Patient was doing well no hospital when she had Questran. Patient states she was not discharged with this. Patient states she feels comfortable being discharged with this helped decrease her stool output and follow-up with her oncologist and PCP. Return parameters were discussed. - Lab Data Result diagrams: 11/04/18 14:45 11/04/18 14:45 Lab Results 11/04/18 11/04/18 11/04/18 Range/Units 14:45 14:45 14:45 WBC 4.2 (3.8-10.6) k/uL RBC 3.66 L (3.80-5.40) m/uL Hgb 11.1 L (11.4-16.0) gm/dL Hct 35.4 (34.0-46.0) % MCV 96.8 (80.0-100.0) fL MCH 30.3 (25.0-35.0) pg MCHC 31.3 (31.0-37.0) g/dL RDW 17.8 H (11.5-15.5) % Plt Count 61 L (150-450) k/uL Neutrophils % 73 % Lymphocytes % 13 % Monocytes % 6 % Eosinophils % 4 % Basophils % 1 % Neutrophils # 3.1 (1.3-7.7) k/uL Lymphocytes # 0.6 L (1.0-4.8) k/uL Monocytes # 0.3 (0-1.0) k/uL Eosinophils # 0.2 (0-0.7) k/uL Basophils # 0.0 (0-0.2) k/uL Hypochromasia Moderate Anisocytosis Slight Macrocytosis Slight Sodium 135 L (137-145) mmol/L Potassium 4.6 (3.5-5.1) mmol/L Chloride 110 H (98-107) mmol/L Carbon Dioxide 18 L (22-30) mmol/L Anion Gap 7 mmol/L BUN 14 (7-17) mg/dL Creatinine 0.89 (0.52-1.04) mg/dL Est GFR (CKD-EPI)AfAm 76 (>60 ml/min/1.73 sqM) Est GFR (CKD-EPI)NonAf 66 (>60 ml/min/1.73 sqM) Glucose 174 H (74-99) mg/dL Plasma Lactic Acid Carlos 1.8 (0.7-2.0) mmol/L Calcium 8.5 (8.4-10.2) mg/dL Total Bilirubin 1.8 H (0.2-1.3) mg/dL AST 38 H (14-36) U/L ALT 35 (9-52) U/L Alkaline Phosphatase 268 H (38-126) U/L Total Protein 6.2 L (6.3-8.2) g/dL Albumin 2.7 L (3.5-5.0) g/dL Amylase 46 (30-110) U/L Lipase 13 L (23-300) U/L Urine Color Urine Appearance (Clear) Urine pH (5.0-8.0) Ur Specific [place] (1.001-1.035) Urine Protein (Negative) Urine Glucose (UA) (Negative) Urine Ketones (Negative) Urine Blood (Negative) Urine Nitrite (Negative) Urine Bilirubin (Negative) Urine Urobilinogen (<2.0) mg/dL Ur Leukocyte Esterase (Negative) Urine RBC (0-5) /hpf Urine WBC (0-5) /hpf Hyaline Casts (0-2) /lpf Urine Mucus (None) /hpf 11/04/ Range/Units 16:10 WBC (3.8-10.6) k/uL RBC (3.80-5.40) m/uL Hgb (11.4-16.0) gm/dL Hct (34.0-46.0) % MCV (80.0-100.0) fL MCH (25.0-35.0) pg MCHC (31.0-37.0) g/dL RDW (11.5-15.5) % Plt Count (150-450) k/uL Neutrophils % % Lymphocytes % % Monocytes % % Eosinophils % % Basophils % % Neutrophils # (1.3-7.7) k/uL Lymphocytes # (1.0-4.8) k/uL Monocytes # (0-1.0) k/uL Eosinophils # (0-0.7) k/uL Basophils # (0-0.2) k/uL Hypochromasia Anisocytosis Macrocytosis Sodium (137-145) mmol/L Potassium (3.5-5.1) mmol/L Chloride (98-107) mmol/L Carbon Dioxide (22-30) mmol/L Anion Gap mmol/L BUN (7-17) mg/dL Creatinine (0.52-1.04) mg/dL Est GFR (CKD-EPI)AfAm (>60 ml/min/1.73 sqM) Est GFR (CKD-EPI)NonAf (>60 ml/min/1.73 sqM) Glucose (74-99) mg/dL Plasma Lactic Acid Carlos (0.7-2.0) mmol/L Calcium (8.4-10.2) mg/dL Total Bilirubin (0.2-1.3) mg/dL AST (14-36) U/L ALT (9-52) U/L Alkaline Phosphatase (38-126) U/L Total Protein (6.3-8.2) g/dL Albumin (3.5-5.0) g/dL Amylase (30-110) U/L Lipase (23-300) U/L Urine Color Yellow Urine Appearance Clear (Clear) Urine pH 5.0 (5.0-8.0) Ur Specific [place] 1.014 (1.001-1.035) Urine Protein Negative (Negative) Urine Glucose (UA) Negative (Negative) Urine Ketones Negative (Negative) Urine Blood Negative (Negative) Urine Nitrite Negative (Negative) Urine Bilirubin Negative (Negative) Urine Urobilinogen <2.0 (<2.0) mg/dL Ur Leukocyte Esterase Trace H (Negative) Urine RBC <1 (0-5) /hpf Urine WBC 4 (0-5) /hpf Hyaline Casts 1 (0-2) /lpf Urine Mucus Rare H (None) /hpf Disposition Clinical Impression: Hepatocellular carcinoma, Abdominal pain, Diarrhea Disposition: HOME SELF-CARE Condition: Stable Instructions: Abdominal Pain (ED) Additional Instructions: Please return to the Emergency Department if symptoms worsen or any other concerns. Prescriptions: Cholestyramine (with Sugar) [Questran] 4 gm PO TID #21 packet Is patient prescribed a controlled substance at d/c from ED?: No Referrals: Gilma Martinez MD [Primary Care Provider] - 1-2 days Time of Disposition: 17:53
[2018-11-04 15:20] LABS: Platelet Count 61 k/uL (150-450)
[2018-11-04 15:30] LABS: Albumin 2.7 g/dL (3.5-5.0); Calcium 8.5 mg/dL (8.4-10.2); Potassium 4.6 mmol/L (3.5-5.1); Total Bilirubin 1.8 mg/dL (0.2-1.3); Total Protein 6.2 g/dL (6.3-8.2)
[2018-11-04 15:57] VITALS: PULSE 57
[2018-11-04 16:40] LABS: Appearance,Urine Clear (Clear); Bilirubin,Urine Negative (Negative); Blood,Urine Negative (Negative); Color,Urine Yellow; Glucose,Urine (UA) Negative (Negative); Hyaline Casts,Urine 1 /lpf (0-2); Ketones,Urine Negative (Negative); Leukocyte Esterase,Urine Trace (Negative); Mucus,Urine Rare /hpf; Nitrite,Urine Negative (Negative); Protein,Urine Negative (Negative); RBC,Urine <1 /hpf (0-5); Specific Gravity,Urine 1.014 (1.001-1.035); Urobilinogen,Urine <2.0 mg/dL (<2.0); WBC,Urine 4 /hpf (0-5)
[2018-11-04 17:07] VITALS: RESP 16
[2018-11-04] MEDS ORDERED: MORPHINE SULFATE 4 MG/ML SYRINGE IVP STA (17:50)
[2018-11-04 18:24] VITALS: BP 105/63
== END 2018-11-04 18:45 | disposition home or self-care (01) ==
LOC: EC 14:05
DX: C22.0 Liver cell carcinoma (principal); R19.7 Diarrhea, unspecified; A04.8 Other specified bacterial intestinal infections; B95.62 Methicillin resistant Staphylococcus aureus infection as the cause of diseases classified elsewhere; E11.9 Type 2 diabetes mellitus without complications; I10 Essential (primary) hypertension; Z88.0 Allergy status to penicillin; Z88.5 Allergy status to narcotic agent; Z88.8 Allergy status to other drugs, medicaments and biological substances; Z91.048 Other nonmedicinal substance allergy status; Z79.4 Long term (current) use of insulin; Z79.82 Long term (current) use of aspirin; Z79.891 Long term (current) use of opiate analgesic; Z79.899 Other long term (current) drug therapy; Z93.2 Ileostomy status; Z90.49 Acquired absence of other specified parts of digestive tract; Z98.890 Other specified postprocedural states
CPT/HCPCS: 36415; 80053; 82150; 83605; 83690; 85025; 81001; 87040; 99284; 96374; 96375; 96376; 96361 ×2; J2270; J2405

== ENCOUNTER 2018-11-11 13:01 | Inpatient (IN) | payer MEDICARE ==
[2018-11-11] MEDS ORDERED: SODIUM CHLORIDE 0.9% 1,000 ML IV STA (13:29)
[2018-11-11] MEDS ORDERED: MORPHINE SULFATE 4 MG/ML SYRINGE IV STA (13:29)
[2018-11-11] MEDS ORDERED: ONDANSETRON ODT 8 MG TAB.RAPDIS PO STA (13:29)
[2018-11-11] MEDS ORDERED: FAMOTIDINE 20 MG/2 ML VIAL IV STA (13:29)
--- NOTE | 2018-11-11 13:56 | ED ---
General Adult HPI - General Chief complaint: Nausea/Vomiting/Diarrhea Stated complaint: nausea Time Seen by Provider: 11/11/18 13:13 Source: patient, family Mode of arrival: ambulatory Limitations: no limitations - History of Present Illness Initial comments: 73-year-old female patient with past medical history significant for primary liver cancer diagnosed in 2010, diabetes mellitus, cirrhosis of liver, colectomy with ileostomy in 2010 for diverticulitis presents to the emergency department today for evaluation of right-sided abdominal pain. Patient states that she has been having some discomfort to the right lower quadrant over the last few weeks however over the last couple of days the pain has moved into the right upper quadrant and has become worse. Patient states that she is constantly nauseated and is unable to keep down food or fluids. She denies any fevers but states she has had shaking chills. States that she is having intermittent solid and loose stools further ileostomy. The patient states she is currently being treated with vancomycin oral for a intestinal staph infection. Patient denies any recent rash, shortness breath, chest pain, back pain, numbness, tingling, dizziness, weakness, hematuria, dysuria, urinary urgency, urinary frequency, headache, visual changes, or any other complaints. - Related Data Home Medications Medication Instructions Recorded Confirmed Dicyclomine [Bentyl] 10 mg PO TID 10/23/18 11/11/18 Furosemide [Lasix] 40 mg PO DAILY 10/23/18 11/11/18 Omeprazole [PriLOSEC] 20 mg PO BID 10/23/18 11/11/18 Sucralfate [Carafate] 1 gm PO QID 10/23/18 11/11/18 Aspirin EC [Ecotrin Low Dose] 81 mg PO DAILY 10/24/18 11/11/18 Insulin NPH Human Isophane 18 unit SQ BID 10/24/18 11/11/18 [NovoLIN N] Insulin Regular, Human [NovoLIN R] 8 unit SQ AC-TID 10/24/18 11/11/18 Magnesium 200 mg PO DAILY 10/24/18 11/11/18 Metoprolol Tartrate 12.5 mg PO DAILY 10/24/18 11/11/18 Morphine Sulfate ER [Ms Contin] 15 mg PO Q12HR 10/24/18 11/11/18 Ondansetron [Zofran ODT] 8 mg PO Q8HR 10/24/18 11/11/18 Previous Rx's Medication Instructions Recorded Nystatin 100,000 Unit/ml Susp 500,000 unit PO QID #12 cup 11/03/18 [Mycostatin Oral Susp] Vancomycin HCl [Vancocin HCl] 250 mg PO Q6HR 7 Days #28 capsule 11/03/18 clonazePAM [KlonoPIN] 0.5 mg PO DAILY tab 11/03/18 Cholestyramine (with Sugar) 4 gm PO TID #21 packet 11/04/18 [Questran] Allergies Allergy/AdvReac Type Severity Reaction Status Date / Time GREG Inhibitors Allergy Cough Verified 11/11/18 13:18 amlodipine Allergy Rash/Hives Verified 11/11/18 13:18 oxycodone Allergy Rash/Hives Verified 11/11/18 13:18 Penicillins Allergy Rash/Hives Verified 11/11/18 13:18 hydromorphone [From Dilaudid] AdvReac Unknown Verified 11/11/18 13:18 sodium dodecyclbenzene Allergy Rash/Hives Uncoded 11/11/18 13:05 sulfonate Review of Systems ROS Statement: Those systems with pertinent positive or pertinent negative responses have been documented in the HPI. ROS Other: All systems not noted in ROS Statement are negative. Past Medical History Past Medical History: Cancer, Diabetes Mellitus, Hypertension, Liver Disease Additional Past Medical History / Comment(s): liver ca History of Any Multi-Drug Resistant Organisms: MRSA Date of last positivie culture/infection: 10/23/18 MDRO Source:: MRSA STOOL Past Surgical History: Bowel Resection Additional Past Surgical History / Comment(s): liver iliostomy Past Anesthesia/Blood Transfusion Reactions: No Reported Reaction Past Psychological History: Anxiety, Depression Smoking Status: Never smoker Past Alcohol Use History: None Reported Past Drug Use History: None Reported - Past Family History Mother History Unknown: Yes Family Medical History: Congestive Heart Failure (CHF) General Exam Limitations: no limitations General appearance: alert, in no apparent distress, other (This is a well- developed, well-nourished, ill-appearing elderly female patient in no acute distress. Vital signs upon presentation are temperature 98.5F, pulse 74, respirations 20, blood pressure 114/60, pulse ox 99% on room air.) Eye exam: Present: normal appearance, PERRL, EOMI. Absent: scleral icterus, conjunctival injection, periorbital swelling ENT exam: Present: normal exam, normal oropharynx, mucous membranes moist Respiratory exam: Present: normal lung sounds bilaterally. Absent: respiratory distress, wheezes, rales, rhonchi, stridor Cardiovascular Exam: Present: regular rate, normal rhythm, normal heart sounds. Absent: systolic murmur, diastolic murmur, rubs, gallop, clicks GI/Abdominal exam: Present: soft, tenderness (Right upper quadrant tenderness), normal bowel sounds. Absent: distended, guarding, rebound, rigid Neurological exam: Present: alert, oriented X3, CN II-XII intact Psychiatric exam: Present: normal affect, normal mood Skin exam: Present: warm, dry, intact, normal color. Absent: rash Course Vital Signs 11/11/18 13:03 Temperature 98.5 F Pulse Rate 74 Respiratory 20 Rate Blood Pressure 114/60 O2 Sat by Pulse 99 Oximetry Medical Decision Making - Medical Decision Making 73-year-old female patient presents to the emergency department today for evaluation of increased pain to the right side abdomen, nausea, and vomiting. Physical examination does reveal right upper quadrant right lower quadrant tenderness. Patient does have ileostomy with a normal output. Patient is afebrile, vital signs stable. Labs reviewed and seems stable from previous readings other than a white blood cell count decreased at 2.5. KUB x-ray of the abdomen did show possibility of right ureteral stones a CT abdomen and pelvis without contrast was obtained. There is no evidence of obstructing renal stone, no new findings on computed tomography scan. Patient was given multiple doses of pain medication nausea medicine here in the department, states that she still feels poorly and does not feel comfortable being discharged home. Given patient's history of liver cancer admit her for intractable abdominal pain to Dr. Perez who is covering for Dr. Lea. We will consult oncology Dr. Hernandez. - Lab Data Result diagrams: 11/11/18 14:00 11/11/18 14:00 Lab Results 11/11/18 11/11/18 11/11/18 Range/Units 14:00 14:00 14:00 WBC 2.5 L (3.8-10.6) k/uL RBC 3.39 L (3.80-5.40) m/uL Hgb 10.2 L (11.4-16.0) gm/dL Hct 32.0 L (34.0-46.0) % MCV 94.6 (80.0-100.0) fL MCH 30.2 (25.0-35.0) pg MCHC 31.9 (31.0-37.0) g/dL RDW 17.6 H (11.5-15.5) % Plt Count 100 L D (150-450) k/uL Neutrophils % 57 % Lymphocytes % 21 % Monocytes % 7 % Eosinophils % 12 % Basophils % 0 % Neutrophils # 1.4 (1.3-7.7) k/uL Lymphocytes # 0.5 L (1.0-4.8) k/uL Monocytes # 0.2 (0-1.0) k/uL Eosinophils # 0.3 (0-0.7) k/uL Basophils # 0.0 (0-0.2) k/uL Hypochromasia Slight Anisocytosis Slight Sodium 137 (137-145) mmol/L Potassium 4.4 (3.5-5.1) mmol/L Chloride 111 H (98-107) mmol/L Carbon Dioxide 20 L (22-30) mmol/L Anion Gap 6 mmol/L BUN 14 (7-17) mg/dL Creatinine 0.82 (0.52-1.04) mg/dL Est GFR (CKD-EPI)AfAm 83 (>60 ml/min/1.73 sqM) Est GFR (CKD-EPI)NonAf 72 (>60 ml/min/1.73 sqM) Glucose 189 H (74-99) mg/dL Plasma Lactic Acid Carlos 1.7 (0.7-2.0) mmol/L Calcium 8.5 (8.4-10.2) mg/dL Total Bilirubin 1.9 H (0.2-1.3) mg/dL AST 40 H (14-36) U/L ALT 23 (9-52) U/L Alkaline Phosphatase 229 H (38-126) U/L Total Protein 6.4 (6.3-8.2) g/dL Albumin 2.7 L (3.5-5.0) g/dL Amylase 60 (30-110) U/L Lipase 12 L (23-300) U/L Urine Color Urine Appearance (Clear) Urine pH (5.0-8.0) Ur Specific [place] (1.001-1.035) Urine Protein (Negative) Urine Glucose (UA) (Negative) Urine Ketones (Negative) Urine Blood (Negative) Urine Nitrite (Negative) Urine Bilirubin (Negative) Urine Urobilinogen (<2.0) mg/dL Ur Leukocyte Esterase (Negative) Urine RBC (0-5) /hpf Urine WBC (0-5) /hpf Ur Squamous Epith Cells (0-4) /hpf Urine Bacteria (None) /hpf Urine Mucus (None) /hpf Urine Yeast (Budding) (None) /hpf 11/11/18 Range/Units 14:00 WBC (3.8-10.6) k/uL RBC (3.80-5.40) m/uL Hgb (11.4-16.0) gm/dL Hct (34.0-46.0) % MCV (80.0-100.0) fL MCH (25.0-35.0) pg MCHC (31.0-37.0) g/dL RDW (11.5-15.5) % Plt Count (150-450) k/uL Neutrophils % % Lymphocytes % % Monocytes % % Eosinophils % % Basophils % % Neutrophils # (1.3-7.7) k/uL Lymphocytes # (1.0-4.8) k/uL Monocytes # (0-1.0) k/uL Eosinophils # (0-0.7) k/uL Basophils # (0-0.2) k/uL Hypochromasia Anisocytosis Sodium (137-145) mmol/L Potassium (3.5-5.1) mmol/L Chloride (98-107) mmol/L Carbon Dioxide (22-30) mmol/L Anion Gap mmol/L BUN (7-17) mg/dL Creatinine (0.52-1.04) mg/dL Est GFR (CKD-EPI)AfAm (>60 ml/min/1.73 sqM) Est GFR (CKD-EPI)NonAf (>60 ml/min/1.73 sqM) Glucose (74-99) mg/dL Plasma Lactic Acid Carlos (0.7-2.0) mmol/L Calcium (8.4-10.2) mg/dL Total Bilirubin (0.2-1.3) mg/dL AST (14-36) U/L ALT (9-52) U/L Alkaline Phosphatase (38-126) U/L Total Protein (6.3-8.2) g/dL Albumin (3.5-5.0) g/dL Amylase (30-110) U/L Lipase (23-300) U/L Urine Color Yellow Urine Appearance Cloudy H (Clear) Urine pH 5.5 (5.0-8.0) Ur Specific [place] 1.015 (1.001-1.035) Urine Protein Trace H (Negative) Urine Glucose (UA) Negative (Negative) Urine Ketones Negative (Negative) Urine Blood Trace H (Negative) Urine Nitrite Negative (Negative) Urine Bilirubin Negative (Negative) Urine Urobilinogen <2.0 (<2.0) mg/dL Ur Leukocyte Esterase Large H (Negative) Urine RBC 20 H (0-5) /hpf Urine WBC 27 H (0-5) /hpf Ur Squamous Epith Cells 10 H (0-4) /hpf Urine Bacteria Many H (None) /hpf Urine Mucus Occasional H (None) /hpf Urine Yeast (Budding) Rare H (None) /hpf - Radiology Data Radiology results: report reviewed, image reviewed KUB x-ray of the abdomen was obtained. Report was reviewed in its entirety. Impression by Dr. Tracy shows nonspecific bowel gas pattern. Suspected left renal stones a possible right ureteral stone measuring 0.[address] abdomen and pelvis without contrast was obtained to evaluate for kidney stone. Report was reviewed in its entirety. Impression by Dr. Jimenes shows slightly more prominent moderate abdominal and pelvic ascites. Underlying cirrhosis with portal hypertension redemonstrated. Suspicious liver masses seen. No bowel obstruction. No suspicious additional new finding identified. Disposition Clinical Impression: Intractable abdominal pain, History of liver cancer Disposition: ADMITTED IP TO THIS [facility] Condition: Serious Referrals: Gilma Martinez MD [Primary Care Provider] - 1-2 days Decision to Admit Reason: Admit from EC Decision Date: 11/11/18 Decision Time: 18:14
[2018-11-11 14:24] LABS: Anisocytosis Slight; Basophils % (A) 0 %; Eosinophils # (A) 0.3 k/uL (0-0.7); Eosinophils % (A) 12 %; HGB 10.2 gm/dL (11.4-16.0); Hypochromasia Slight; Lymphocytes # (A) 0.5 k/uL (1.0-4.8); Lymphocytes % (A) 21 %; MCH 30.2 pg (25.0-35.0); MCHC 31.9 g/dL (31.0-37.0); MCV 94.6 fL (80.0-100.0); Mean Platelet Volume 8.8; Monocytes # (A) 0.2 k/uL (0-1.0); Monocytes % (A) 7 %; Neutrophils # (A) 1.4 k/uL (1.3-7.7); Neutrophils % (A) 57 %; RBC 3.39 m/uL (3.80-5.40); RDW 17.6 % (11.5-15.5); WBC 2.5 k/uL (3.8-10.6)
[2018-11-11 14:27] LABS: Appearance,Urine Cloudy (Clear); Bacteria,Urine Many /hpf; Bilirubin,Urine Negative (Negative); Blood,Urine Trace (Negative); Budding Yeast,Urine Rare /hpf; Color,Urine Yellow; Glucose,Urine (UA) Negative (Negative); Ketones,Urine Negative (Negative); Leukocyte Esterase,Urine Large (Negative); Mucus,Urine Occasional /hpf; Nitrite,Urine Negative (Negative); PH, Urine 5.5 (5.0-8.0); Protein,Urine Trace (Negative); RBC,Urine 20 /hpf (0-5); Specific Gravity,Urine 1.015 (1.001-1.035); Squamous Epithelial Cell,Urine 10 /hpf (0-4); Urobilinogen,Urine <2.0 mg/dL (<2.0); WBC,Urine 27 /hpf (0-5)
[2018-11-11 14:29] LABS: Platelet Count 100 k/uL (150-450)
--- NOTE | 2018-11-11 14:38 | XR ---
EXAMINATION TYPE: XR KUB DATE OF EXAM: 11/11/2018 COMPARISON: None INDICATION: Abdominal pain vomiting nausea TECHNIQUE: Single view abdomen there are a few FINDINGS: No gas pattern is nonspecific. Couple air-fluid levels are within small bowel loops. The ostomy site appears to be a left. Couple of left renal calcifications are not excluded. A right ureteral calcific ation is not excluded at the level of the L5 transverse process. This measures 0.8 cm. Psoas margins are normal. No organomegaly is present. Cholecystectomy clips are in right upper quadrant. No free air is present IMPRESSION: 1. Nonspecific bowel gas pattern. 2. Suspected left renal stones and possible right ureteral stone measuring 0.8 cm.
[2018-11-11 14:50] LABS: Albumin 2.7 g/dL (3.5-5.0); Calcium 8.5 mg/dL (8.4-10.2); Potassium 4.4 mmol/L (3.5-5.1); Total Bilirubin 1.9 mg/dL (0.2-1.3); Total Protein 6.4 g/dL (6.3-8.2)
[2018-11-11] MEDS ORDERED: KETOROLAC 30 MG/ML 1 ML VIAL IVP STA (15:53)
[2018-11-11] MEDS ORDERED: MORPHINE SULFATE 2 MG/ML SYRINGE IVP STA (15:54)
--- NOTE | 2018-11-11 16:20 | CT ---
EXAMINATION TYPE: CT abdomen pelvis wo con DATE OF EXAM: 11/11/2018 HISTORY: Generalized pain and nausea. CT DLP: 781.2 mGycm. Automated Exposure Control for Dose Reduction was Utilized. TECHNIQUE: CT scan of the abdomen and pelvis is performed without oral or IV contrast. COMPARISON: CT abdomen and pelvis from 20 days ago. FINDINGS: Within the limitations of a non-contrast study, the following observations are made. LUNG BASES: No significant abnormality is appreciated. LIVER/GB: Liver remains small in size and lobulated in contour. Small hyperdense lesion left hepatic lobe is redemonstrated axial image 21. There is more suspicious for 0.6 cm hyperdense lesion anterior axial image 16 redemonstrated. Smaller hypodense lesion axial image 25 right hepatic lobe is noted. Surrounding ascites is again seen. Cholecystectomy clips are redemonstrated. PANCREAS: Pancreas is not well identified and presumed atrophic. SPLEEN: Splenomegaly is redemonstrated with surrounding ascites. ADRENALS: No significant abnormality is seen. KIDNEYS: No renal calculi or hydronephrosis. BOWEL: Redemonstration of right lower quadrant colostomy and parastomal hernia. No suspicious bowel d ilatation is seen GENITAL ORGANS: Uterus is surgically absent or markedly atrophic. LYMPH NODES: No greater than 1cm abdominal or pelvic lymph nodes are appreciated. OSSEOUS STRUCTURES: There is multilevel spurring and disc space narrowing throughout the thoracolumba r spine. Moderate axial joint space loss and acetabular spurring in both hips is seen. Posterior spur effacing anterior thecal sac at several levels in the lumbar spine. OTHER: There is persistent moderate amount of pelvic and abdominal ascites increased from prior CT. I nterval paracentesis November 02 noted. IMPRESSION: Slightly more prominent moderate abdominal and pelvic ascites. Underlying cirrhosis with portal hypertension redemonstrated. Suspicious liver masses seen. No bowel obstruction. No suspicious additional new finding identified.
[2018-11-11] MEDS ORDERED: NALOXONE 0.4 MG/ML 1 ML VIAL IV PRN (18:00)
[2018-11-11] MEDS: SODIUM CHLORIDE 0.9% 1,000 ML IV SCH (19:21)
[2018-11-11 22:04] LABS: Glucose,Whole Blood 93 mg/dL (75-99)
[2018-11-11] MEDS: ONDANSETRON 4 MG/2 ML VIAL IVP PRN (22:16)
[2018-11-11] MEDS: MORPHINE SULFATE 4 MG/ML SYRINGE IV PRN (22:17)
[2018-11-12] MEDS: MORPHINE SULFATE 4 MG/ML SYRINGE IV PRN ×5 (02:13→17:45)
[2018-11-12] MEDS: ONDANSETRON 4 MG/2 ML VIAL IVP PRN (06:12)
[2018-11-12 07:13] LABS: Glucose,Whole Blood 89 mg/dL (75-99)
[2018-11-12] MEDS: SODIUM CHLORIDE 0.9% 1,000 ML IV SCH ×2 (07:44→10:11)
[2018-11-12 08:41] LABS: ALT 32 U/L (9-52); AST 39 U/L (14-36); Albumin 2.2 g/dL (3.5-5.0); Alkaline Phosphatase 180 U/L (38-126); Anion Gap 4 mmol/L; Blood Urea Nitrogen 12 mg/dL (7-17); Carbon Dioxide 16 mmol/L (22-30); Chloride 118 mmol/L (98-107); Glucose 84 mg/dL (74-99); Potassium 4.3 mmol/L (3.5-5.1); Sodium 138 mmol/L (137-145); Total Protein 5.4 g/dL (6.3-8.2)
[2018-11-12 08:59] LABS: Anisocytosis Slight; HCT 30.1 % (34.0-46.0); HGB 9.5 gm/dL (11.4-16.0); Hypochromasia Marked; MCH 30.6 pg (25.0-35.0); MCHC 31.4 g/dL (31.0-37.0); MCV 97.4 fL (80.0-100.0); Macrocytosis Slight; Mean Platelet Volume 8.9; RBC 3.09 m/uL (3.80-5.40); RDW 17.6 % (11.5-15.5); WBC 2.8 k/uL (3.8-10.6)
[2018-11-12 12:01] LABS: Glucose,Whole Blood 149 mg/dL (75-99)
[2018-11-12 12:49] LABS: Band Neutrophils % 2 %; Basophils # (M) 0.03 k/uL (0-0.2); Eosinophils # (M) 0.31 k/uL (0-0.7); Lymphocytes # (M) 0.98 k/uL (1.0-4.8); Monocytes # (M) 0.11 k/uL (0-1.0); Neutrophils % (M) 47 %; Nucleated Red Blood Cells 0 /100 WBC (0-0); Total Cells Counted 100
[2018-11-12 12:54] LABS: Platelet Count 87 k/uL (150-450)
--- NOTE | 2018-11-12 13:57 | P.CONS ---
History of Present Illness - Reason for Consult Consult date: 11/12/18 Hepatocellular Cancer Requesting physician: Shyann Rockwell - Chief Complaint Abdominal pain and increased ostomy output - History of Present Illness Ms. Keenan is a pleasant 73 year old female who was initially introduced to our service at recent hospitalization last month. She has a known history of Hepatocellular carcinoma, originally diagnosed through [facility]. At her last hospitalization we were not able to obtain all of her medical records until now as she has been seen and treated at many different outside hospitals since her initial diagnosis. Medical Surgical History includes: Diverticulitis in 2010 with perforation colectomy, ileostomy, left lateral liver hepatocellular carcinoma, non- alcoholic liver cirrhosis (per patient diagnosis in 2002), Thrombocytopenia, Anemia, Hypertension, Diabetes Mellitus, OA, Mood Disorder, depression, Chronic Pain. Cholecystectomy, Appendectomy, Exp Lap with lysis of adhesions, Total abdominal hysterectomy, C-sections. 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 [facility] was consulted as well on intial pathology. It was felt to be an unusual appearing neoplasm at [facility] as hepatocellular parenchyma exhibited heavily lipidized cells by collagen and lymphoid response. Note she has history of an existing ileostomy due to dicerticulitis perforation in 2010, where colectomy and ileostomy was completed on 09/11/2011 04/18/2013 - Admitted to [facility] - under Dr. Desai with intent to resect liver mass, ex lap performed but excision of mass was not able to be performed Sometime between 2012--2014 she was treated with Chemoembolization (per patient at [facility]) She was also seen and treated by Dr. Varela during this time 2014: Seen at [facility] and again in 2016 she consulted with yet another hematology, oncologist Dr. Greg Bear in November 2016. 02/2016 - Ablation liver mass ([facility]) 06/2016 - Was evaluated at [facility] by Gastroenterology when a repeat liver biopsy was performed. Resulted with well-differentiated Hepatocellular Carcinoma 10/2016 Underwent Chemoembolization to left hepatic lobe with Interventional Radiology 08/2018 - She was evaluated at [facility] Right Hepatic Lobe Biopsy was performed - Well differentiated Hepatocellular Carcinoma and new 4.3cm right hepatic mass and underwent chemoembolization at this facility in August. At this time she also consulted with Medical Oncologist Dr. Ar Julio. 10/22/18 - She presented to [facility] with complaints of abdominal pain and discomfort. She was treated for UTI, as well as increased ostomy output which was positive for MRSA and treated with PO Vancomycin, She also underwent paracentesis for increasing abdominal ascites during this stay and pathology of ascitic fluid was negative for malignant cells, supportive care was given, she was discharged when stabiled on 11/03/18. 11/04/18 - She presented back to emergency with complaints of increased ostomy output and pain, less than 24 hours after discharge. She was provided pain management and a script for questran and discharge in stable condition from Emergency. Multiple first, new patient appointments have been made since 2017 for her although she has cancelled/not showed. 11/11/18 - She now presents back to [facility]. With complaints of pain and discomfort. She complains of feeling weaker and more fatigued since recent hospitalization, feels her pain is not controlled on her ER morphine and has increased output in ostomy. CT Abdomen and pelvis was performed on admission and shows increasing abdominal ascites and known liver masses. Last AFP was less than 2.5. She also complains of increased nausea and inability to keep food or fluids down without vomiting. Positive subjective fevers and chills. Her medical history records were obtained since last admission and are documented above. Despite her long history of locally advanced Hepatocellular carcinoma she denies ever being prescribed or taking PO cancer therapy (i.e. Nexavaar or Sutent). She also states she previously was in for transplant potential although was told a few years ago she is no longer a candidate. Review of Systems A 14 point review of systems assessed and completed and all negative except HPI Past Medical History Past Medical History: Cancer, Diabetes Mellitus, Hypertension, Liver Disease Additional Past Medical History / Comment(s): liver ca- had chemo 10-03-18,past ascities-paracentesis, ( ulcer(sx),diveticulitis anx/depression History of Any Multi-Drug Resistant Organisms: MRSA Year Discovered:: 10/23/18 MDRO Source:: MRSA STOOL Past Surgical History: Appendectomy, Bowel Resection, Section, Cholecystectomy, Hysterectomy, Tonsillectomy Additional Past Surgical History / Comment(s): rt rotator cuff repair,carpal tunnel release .liver bx,ilieostomy ,11-02-18 had paracentesis Past Anesthesia/Blood Transfusion Reactions: No Reported Reaction Smoking Status: Former smoker - Past Family History Mother History Unknown: Yes Family Medical History: Congestive Heart Failure (CHF) Medications and Allergies Home Medications Medication Instructions Recorded Confirmed Type Dicyclomine [Bentyl] 10 mg PO TID 10/23/18 11/11/18 History Furosemide [Lasix] 40 mg PO DAILY 10/23/18 11/11/18 History Omeprazole [PriLOSEC] 20 mg PO BID 10/23/18 11/11/18 History Sucralfate [Carafate] 1 gm PO QID 10/23/18 11/11/18 History Aspirin EC [Ecotrin Low Dose] 81 mg PO DAILY 10/24/18 11/11/18 History Insulin NPH Human Isophane 18 unit SQ BID 10/24/18 11/11/18 History [NovoLIN N] Insulin Regular, Human [NovoLIN R] 8 unit SQ AC-TID 10/24/18 11/11/18 History Magnesium 200 mg PO DAILY 10/24/18 11/11/18 History Metoprolol Tartrate 12.5 mg PO DAILY 10/24/18 11/11/18 History Morphine Sulfate ER [Ms Contin] 15 mg PO Q12HR 10/24/18 11/11/18 History Ondansetron [Zofran ODT] 8 mg PO Q8HR 10/24/18 11/11/18 History Nystatin 100,000 Unit/ml Susp 500,000 unit PO QID #12 cup 11/03/18 11/11/18 Rx [Mycostatin Oral Susp] Vancomycin HCl [Vancocin HCl] 250 mg PO Q6HR 7 Days #28 capsule 11/03/18 Rx clonazePAM [KlonoPIN] 0.5 mg PO DAILY tab 11/03/18 11/11/18 Rx Cholestyramine (with Sugar) 4 gm PO TID #21 packet 11/04/18 11/11/18 Rx [Questran] Allergies Allergy/AdvReac Type Severity Reaction Status Date / Time GREG Inhibitors Allergy Cough Verified 11/11/18 13:18 amlodipine Allergy Rash/Hives Verified 11/11/18 13:18 oxycodone Allergy Rash/Hives Verified 11/11/18 13:18 Penicillins Allergy Rash/Hives Verified 11/11/18 13:18 hydromorphone [From Dilaudid] AdvReac Unknown Verified 11/11/18 13:18 sodium dodecyclbenzene Allergy Rash/Hives Uncoded 11/11/18 13:05 sulfonate Physical Exam Vitals: Vital Signs Temp Pulse Pulse Resp BP BP Pulse Ox 11/12/18 12:58 98.7 F 60 16 93/45 99 11/12/18 06:22 98.1 F 62 16 97 11/11/18 22:13 98.6 F 60 16 105/54 99 11/11/18 20:54 60 18 126/72 100 11/11/18 19:00 60 16 96/49 98 Intake and Output 11/11/18 11/12/18 11/12/18 22:59 06:59 14:59 Intake Total 600 1280 Balance 600 1280 Intake: Intake, IV Titration 680 Amount Sodium Chloride 0.9% 1, 680 000 ml @ 85 mls/hr IV . [id number] [facility] Rx#:[id number] Oral 600 600 Other: Voiding Method Toilet Toilet - Constitutional General appearance: Present: cooperative, no acute distress, obese - EENT EENT Comment(s): Right jaw appears less swollen, able to palpate jaw/TMJ with not as intense of a pain response from pt. Jaw has FROM Eyes: Present: anicteric sclerae, EOMI ENT: Present: normal oropharynx - Respiratory Respiratory: bilateral: CTA - Cardiovascular Heart sounds: normal: S1, S2 - Gastrointestinal General gastrointestinal: Present: normal bowel sounds,firm, increased ascite. Localized gastrointestinal: tender: RUQ, epigastric periumbilical - Integumentary Integumentary: Present: normal - Neurologic Neurologic: Present: CNII-XII intact - Musculoskeletal Musculoskeletal: Present: strength equal bilaterally - Psychiatric Psychiatric: Present: A&O x's 3, appropriate affect, intact judgment & insight Results CBC & Chem 7: 11/12/18 07:45 11/12/18 07:45 Labs: Abnormal Lab Results - Last 24 Hours (Table) 11/11/18 11/11/18 11/11/18 Range/Units 14:00 14:00 14:00 WBC 2.5 L (3.8-10.6) k/uL RBC 3.39 L (3.80-5.40) m/uL Hgb 10.2 L (11.4-16.0) gm/dL Hct 32.0 L (34.0-46.0) % RDW 17.6 H (11.5-15.5) % Plt Count 100 L D (150-450) k/uL Lymphocytes # 0.5 L (1.0-4.8) k/uL Lymphocytes # (Manual) (1.0-4.8) k/uL Chloride 111 H (98-107) mmol/L Carbon Dioxide 20 L (22-30) mmol/L Glucose 189 H (74-99) mg/dL POC Glucose (mg/dL) (75-99) mg/dL Calcium (8.4-10.2) mg/dL Total Bilirubin 1.9 H (0.2-1.3) mg/dL AST 40 H (14-36) U/L Alkaline Phosphatase 229 H (38-126) U/L Total Protein (6.3-8.2) g/dL Albumin 2.7 L (3.5-5.0) g/dL Lipase 12 L (23-300) U/L Urine Appearance Cloudy H (Clear) Urine Protein Trace H (Negative) Urine Blood Trace H (Negative) Ur Leukocyte Esterase Large H (Negative) Urine RBC 20 H (0-5) /hpf Urine WBC 27 H (0-5) /hpf Ur Squamous Epith Cells 10 H (0-4) /hpf Urine Bacteria Many H (None) /hpf Urine Mucus Occasional H (None) /hpf Urine Yeast (Budding) Rare H (None) /hpf 11/12/18 11/12/18 11/12/18 Range/Units 07:45 07:45 12:00 WBC 2.8 L (3.8-10.6) k/uL RBC 3.09 L (3.80-5.40) m/uL Hgb 9.5 L (11.4-16.0) gm/dL Hct 30.1 L (34.0-46.0) % RDW 17.6 H (11.5-15.5) % Plt Count 87 L (150-450) k/uL Lymphocytes # (1.0-4.8) k/uL Lymphocytes # (Manual) 0.98 L (1.0-4.8) k/uL Chloride 118 H (98-107) mmol/L Carbon Dioxide 16 L (22-30) mmol/L Glucose (74-99) mg/dL POC Glucose (mg/dL) 149 H (75-99) mg/dL Calcium 8.0 L (8.4-10.2) mg/dL Total Bilirubin 2.0 H (0.2-1.3) mg/dL AST 39 H (14-36) U/L Alkaline Phosphatase 180 H (38-126) U/L Total Protein 5.4 L (6.3-8.2) g/dL Albumin 2.2 L (3.5-5.0) g/dL Lipase (23-300) U/L Urine Appearance (Clear) Urine Protein (Negative) Urine Blood (Negative) Ur Leukocyte Esterase (Negative) Urine RBC (0-5) /hpf Urine WBC (0-5) /hpf Ur Squamous Epith Cells (0-4) /hpf Urine Bacteria (None) /hpf Urine Mucus (None) /hpf Urine Yeast (Budding) (None) /hpf Microbiology - Last 24 Hours (Table) 11/11/18 14:00 Urine Culture - Preliminary Urine,Voided Assessment and Plan Plan: CT Scan Abdomen and Pelvis Reviewed. Assessment and Recommendations: 1. Hepatocellular Carcinoma (Original Diagnosis 2012): - Multiple Consultations through multiple outside hospitals with multiple physicians - Status Post Chemoembolisation (2013 ([facility]) , 2016 ([facility]) left lobe mass, and 2018 Right Lobe Mass ([facility]) , partial tumor resection with Lysis of Adhesions ([place] with Dr. Desai) 2. Non-Alcoholic Liver Cirrhosis: - Has been evaluatedby Hepatology in past and deemed not a candidate for transplanr 3. Abdominal Ascites: Progressing - Status POst Therapeutic and Diagnostic Paracentesis last admission - Pathology of Ascites fluid negative for malignant cells 4. Diverticulitis with History of Bowel Perforation with colectomy and Ileostomy (2010) - Increased Output in ostomy per patient 5. Chronic abdominal pain with multiple admissions for pain at outside hospitals and most recently [facility]: - Currently maintained on Long acting MS Contin - She does not know who wrote her last Script as outpatient, once patient is established in office we can assist in management of her pain contract if she adheres to follow-ups (history of multiple physicians, multiple appointments made at office and has cancelled and not shown) 6. Recent Staph infection in Stool: - Vancomycin PO 7. UTI: Diagnosed and treated at recent admission this month 8. Inability to tolerate PO Intake: Persistent nausea and vomiting per patient - New and progressing over the past week - Supportive care - Abdominal imaging reviewed, will order repeat abdominal paracentesis for therapeutic purposes 9. Increased Ileostomy Output: Likely related to recent infection: - Continue PO Vanco per ID - Continue Questran 10. Leukopenia: WBC 2.8, neutrophils sufficient above 1, Lymphocytopenia - mildly decreased: - Likely worsening with acute infections and underlying liver disease - Monitor closely 11. THrombocytopenia - Chronic, secondary to underlying Cirrhosis of liver - [place] is within safe range above 50K, Monitor daily CBC 12. Normocytic Anemia - Multifactoral - Chronic disease/inflammation Liver Cirrhosis and Malignancy - No intervention needed at this time, stable above 7 Thank you for allowing us to participate in the care of this patient, we will follow along with you. Physician Attest: I have completed the full history and physical of this patient and agree with above dictation by Charlene Burns NP. Dictated as a scribe Oncology Plan: - Recent AFT below 2.5 - With know recurrent locally advanced disease possible benefit from PO cancer therapy such as Nexavaar (must ensure patient was not treated in past, she denies ever receiving any PO cancer therapy, although inconsistent patient history with multiple outside hospitals and physicians) - Therapeutic Paracentesis for comfort - Continue Monitor CBC daily - Will make another follow-up appointment with patient in office with Dr. Hernandez (prior appointments made with Dr. Hernandez which she failed to show) - Recommend increased ER pain management to limit need for breakthrough and recurrent hospitalizations for pain - Antiemetics and supportive care
[2018-11-12] MEDS: LEVOFLOXACIN 500 MG TAB PO SCH (15:50)
[2018-11-12] MEDS: CHOLESTYRAMINE (WITH SUGAR) 4 GM PACKET PO SCH ×2 (15:50→16:28)
[2018-11-12] MEDS: DICYCLOMINE 10 MG CAP PO SCH ×2 (15:51→22:28)
[2018-11-12] MEDS: PANTOPRAZOLE 40 MG TABLET PO SCH (15:51)
[2018-11-12] MEDS ORDERED: ONDANSETRON ODT 8 MG TAB.RAPDIS PO PRN (16:00)
[2018-11-12 16:54] LABS: Glucose,Whole Blood 234 mg/dL (75-99)
[2018-11-12] MEDS: NYSTATIN 100,000 UNIT/ML SUSP 500,000 UNIT/5 ML CUP PO SCH ×2 (17:44→22:28)
[2018-11-12] MEDS: SUCRALFATE 1 GM TAB PO SCH ×2 (17:44→22:28)
[2018-11-12] MEDS: INSULIN ASPART 100 UNIT/ML 1 ML 10 ML VIAL SQ SCH ×2 (17:45→22:28)
[2018-11-12] MEDS ORDERED: VANCOMYCIN HCL 250 MG PO SCH (18:00)
--- NOTE | 2018-11-12 21:17 | P.HPIM ---
History of Present Illness H&P Date: 11/12/18 Chief Complaint: Nausea vomiting and intermittent abdominal pain Miss Keenan is a 73-year-old female who was seen evaluated examined on third floor, patient has been admitted into the hospital with discomfort and pain in the abdomen, patient has been feeling more weak, the pain has not been improved with extended release morphine, she has some output through the ostomy as well, she also hasn't noted to have increased ascites and liver metastases, oncology services have evaluated this patient, her details of this oncology problem as noted below She has a known history of Hepatocellular carcinoma, originally diagnosed through [facility]. Medical Surgical History includes: Diverticulitis in 2010 with perforation colectomy, ileostomy, left lateral liver hepatocellular carcinoma, non- alcoholic liver cirrhosis (per patient diagnosis in 2002), Thrombocytopenia, Anemia, Hypertension, Diabetes Mellitus, OA, Mood Disorder, depression, Chronic Pain. Cholecystectomy, Appendectomy, Exp Lap with lysis of adhesions, Total abdominal hysterectomy, C-sections. 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 [facility] was consulted as well on intial pathology. It was felt to be an unusual appearing neoplasm at [facility] as hepatocellular parenchyma exhibited heavily lipidized cells by collagen and lymphoid response. Note she has history of an existing ileostomy due to dicerticulitis perforation in 2010, where colectomy and ileostomy was completed on 09/11/2011 04/18/2013 - Admitted to [facility] - under Dr. Desai with intent to resect liver mass, ex lap performed but excision of mass was not able to be performed Sometime between 2012--2014 she was treated with Chemoembolization (per patient at [facility]) She was also seen and treated by Dr. Varela during this time 2014: Seen at [facility] and again in 2016 she consulted with yet another hematology, oncologist Dr. Greg Bear in November 2016. 02/2016 - Ablation liver mass (unknown hospital) 06/2016 - Was evaluated at [facility] by Gastroenterology when a repeat liver biopsy was performed. Resulted with well-differentiated Hepatocellular Carcinoma 10/2016 Underwent Chemoembolization to left hepatic lobe with Interventional Radiology 08/2018 - She was evaluated at [facility] Right Hepatic Lobe Biopsy was performed - Well differentiated Hepatocellular Carcinoma and new 4.3cm right hepatic mass and underwent chemoembolization at this facility in August. At this time she also consulted with Medical Oncologist Dr. Ar Julio. 10/22/18 - She presented to [facility] with complaints of abdominal pain and discomfort. She was treated for UTI, as well as increased ostomy output which was positive for MRSA and treated with PO Vancomycin, She also underwent paracentesis for increasing abdominal ascites during this stay and pathology of ascitic fluid was negative for malignant cells, supportive care was given, she was discharged when stabiled on 11/03/18. Review of Systems All systems: negative Past Medical History Past Medical History: Cancer, Diabetes Mellitus, Hypertension, Liver Disease Additional Past Medical History / Comment(s): liver ca- had chemo 10-03-18,past ascities-paracentesis, ( ulcer(sx),diveticulitis anx/depression History of Any Multi-Drug Resistant Organisms: MRSA Date of last positivie culture/infection: 10/23/18 MDRO Source:: MRSA STOOL Past Surgical History: Appendectomy, Bowel Resection, Section, Cholecystectomy, Hysterectomy, Tonsillectomy Additional Past Surgical History / Comment(s): rt rotator cuff repair,carpal tunnel release .liver bx,ilieostomy ,11-02-18 had paracentesis Past Anesthesia/Blood Transfusion Reactions: No Reported Reaction Smoking Status: Former smoker - Past Family History Mother History Unknown: Yes Family Medical History: Congestive Heart Failure (CHF) Medications and Allergies Home Medications Medication Instructions Recorded Confirmed Type Dicyclomine [Bentyl] 10 mg PO TID 10/23/18 11/11/18 History Furosemide [Lasix] 40 mg PO DAILY 10/23/18 11/11/18 History Omeprazole [PriLOSEC] 20 mg PO BID 10/23/18 11/11/18 History Sucralfate [Carafate] 1 gm PO QID 10/23/18 11/11/18 History Aspirin EC [Ecotrin Low Dose] 81 mg PO DAILY 10/24/18 11/11/18 History Insulin NPH Human Isophane 18 unit SQ BID 10/24/18 11/11/18 History [NovoLIN N] Insulin Regular, Human [NovoLIN R] 8 unit SQ AC-TID 10/24/18 11/11/18 History Magnesium 200 mg PO DAILY 10/24/18 11/11/18 History Metoprolol Tartrate 12.5 mg PO DAILY 10/24/18 11/11/18 History Morphine Sulfate ER [Ms Contin] 15 mg PO Q12HR 10/24/18 11/11/18 History Ondansetron [Zofran ODT] 8 mg PO Q8HR 10/24/18 11/11/18 History Nystatin 100,000 Unit/ml Susp 500,000 unit PO QID #12 cup 11/03/18 11/11/18 Rx [Mycostatin Oral Susp] Vancomycin HCl [Vancocin HCl] 250 mg PO Q6HR 7 Days #28 capsule 11/03/18 Rx clonazePAM [KlonoPIN] 0.5 mg PO DAILY tab 11/03/18 11/11/18 Rx Cholestyramine (with Sugar) 4 gm PO TID #21 packet 11/04/18 11/11/18 Rx [Questran] Allergies Allergy/AdvReac Type Severity Reaction Status Date / Time GREG Inhibitors Allergy Cough Verified 11/11/18 13:18 amlodipine Allergy Rash/Hives Verified 11/11/18 13:18 oxycodone Allergy Rash/Hives Verified 11/11/18 13:18 Penicillins Allergy Rash/Hives Verified 11/11/18 13:18 hydromorphone [From Dilaudid] AdvReac Unknown Verified 11/11/18 13:18 sodium dodecyclbenzene Allergy Rash/Hives Uncoded 11/11/18 13:05 sulfonate Physical Exam Vitals: Vital Signs Temp Pulse Resp BP Pulse Ox 11/12/18 15:20 60 16 11/12/18 12:58 98.7 F 60 16 93/45 99 11/12/18 06:22 98.1 F 62 16 97 11/11/18 22:13 98.6 F 60 16 105/54 99 Intake and Output 11/12/18 11/12/18 11/12/18 06:59 14:59 22:59 Intake Total 1280 3070 Balance 1280 3070 Intake: Intake, IV Titration 680 1020 Amount Sodium Chloride 0.9% 1, 680 1020 000 ml @ 85 mls/hr IV . [id number] [facility] Rx#:[id number] Oral 600 2050 Other: Voiding Method Toilet Toilet Toilet # Voids 4 # Bowel Movements 1 Weight 90.718 kg - Constitutional General appearance: average body habitus, cooperative, disheveled, no acute distress, obese - EENT Eyes: EOMI, PERRLA, normal appearance ENT: normal oropharynx Ears: bilateral: normal - Neck Carotids: bilateral: upstroke normal - Respiratory Respiratory: bilateral: CTA - Cardiovascular Rhythm: regular Heart sounds: normal: S1, S2 - Gastrointestinal General gastrointestinal: decreased bowel sounds, distended, soft - Neurologic Neurologic: CNII-XII intact - Musculoskeletal Musculoskeletal: gait normal, generalized weakness, strength equal bilaterally - Psychiatric Psychiatric: A&O x's 3, appropriate affect, intact judgment & insight Results CBC & Chem 7: 11/12/18 07:45 11/12/18 07:45 Labs: Abnormal Lab Results - Last 24 Hours (Table) 11/12/18 11/12/18 11/12/18 Range/Units 07:45 07:45 12:00 WBC 2.8 L (3.8-10.6) k/uL RBC 3.09 L (3.80-5.40) m/uL Hgb 9.5 L (11.4-16.0) gm/dL Hct 30.1 L (34.0-46.0) % RDW 17.6 H (11.5-15.5) % Plt Count 87 L (150-450) k/uL Lymphocytes # (Manual) 0.98 L (1.0-4.8) k/uL Chloride 118 H (98-107) mmol/L Carbon Dioxide 16 L (22-30) mmol/L POC Glucose (mg/dL) 149 H (75-99) mg/dL Calcium 8.0 L (8.4-10.2) mg/dL Total Bilirubin 2.0 H (0.2-1.3) mg/dL AST 39 H (14-36) U/L Alkaline Phosphatase 180 H (38-126) U/L Total Protein 5.4 L (6.3-8.2) g/dL Albumin 2.2 L (3.5-5.0) g/dL 11/12/18 Range/Units 16:52 WBC (3.8-10.6) k/uL RBC (3.80-5.40) m/uL Hgb (11.4-16.0) gm/dL Hct (34.0-46.0) % RDW (11.5-15.5) % Plt Count (150-450) k/uL Lymphocytes # (Manual) (1.0-4.8) k/uL Chloride (98-107) mmol/L Carbon Dioxide (22-30) mmol/L POC Glucose (mg/dL) 234 H (75-99) mg/dL Calcium (8.4-10.2) mg/dL Total Bilirubin (0.2-1.3) mg/dL AST (14-36) U/L Alkaline Phosphatase (38-126) U/L Total Protein (6.3-8.2) g/dL Albumin (3.5-5.0) g/dL Microbiology - Last 24 Hours (Table) 11/11/18 14:00 Urine Culture - Preliminary Urine,Voided CT scan - abdomen: report reviewed, image reviewed (Increasing ascites noted) Thrombosis Risk Factor Assmnt - Choose All That Apply Each Risk Factor Represents 2 Points: Age 61-74 years Thrombosis Risk Factor Assessment Total Risk Factor Score: 2 Thrombosis Risk Factor Assessment Level: Low Risk Assessment and Plan Assessment: Hepatocellular carcinoma Increase ascites Worsening of abdominal discomfort and pain Leukopenia Thrombocytopenia Liver cirrhosis Plan: Pain management Gentle rehydration Broad-spectrum antibiotic Continue therapy for C. difficile colitis Consult IR for the paracentesis Time with Patient: Greater than 30
[2018-11-12 21:21] LABS: Glucose,Whole Blood 169 mg/dL (75-99)
[2018-11-12] MEDS: MORPHINE SULFATE ER 15 MG TABLET PO SCH (22:28)
[2018-11-12 23:21] LABS: Hemoglobin A1C 7.1 % (4.0-6.0)
[2018-11-13] MEDS: MORPHINE SULFATE 4 MG/ML SYRINGE IV PRN ×4 (01:32→16:49)
[2018-11-13] MEDS: SODIUM CHLORIDE 0.9% 1,000 ML IV SCH ×2 (05:41→16:24)
[2018-11-13 07:12] LABS: Glucose,Whole Blood 87 mg/dL (75-99)
[2018-11-13] MEDS: INSULIN ASPART 100 UNIT/ML 1 ML 10 ML VIAL SQ SCH ×4 (08:36→21:17)
[2018-11-13] MEDS: METOPROLOL TARTRATE 12.5 MG TAB PO SCH (08:43)
[2018-11-13] MEDS: ASPIRIN 81 MG PO SCH (08:44)
[2018-11-13] MEDS: MORPHINE SULFATE ER 15 MG TABLET PO SCH ×2 (08:44→21:07)
[2018-11-13] MEDS: clonazePAM 0.5 MG TAB PO SCH (08:44)
[2018-11-13] MEDS: MAGNESIUM OXIDE 400 MG TAB PO SCH (08:44)
[2018-11-13] MEDS: DICYCLOMINE 10 MG CAP PO SCH ×3 (08:44→21:08)
[2018-11-13] MEDS: PANTOPRAZOLE 40 MG TABLET PO SCH (08:44)
[2018-11-13] MEDS: SUCRALFATE 1 GM TAB PO SCH ×4 (08:44→21:06)
[2018-11-13] MEDS: FUROSEMIDE 40 MG TAB PO SCH (08:44)
[2018-11-13] MEDS: CHOLESTYRAMINE (WITH SUGAR) 4 GM PACKET PO SCH ×3 (08:45→16:52)
[2018-11-13] MEDS: NYSTATIN 100,000 UNIT/ML SUSP 500,000 UNIT/5 ML CUP PO SCH ×4 (08:45→21:06)
[2018-11-13 11:50] LABS: Glucose,Whole Blood 150 mg/dL (75-99)
[2018-11-13 15:57] LABS: Anisocytosis Slight; HCT 32.1 % (34.0-46.0); HGB 9.5 gm/dL (11.4-16.0); Hypochromasia Marked; MCH 29.2 pg (25.0-35.0); MCHC 29.7 g/dL (31.0-37.0); MCV 98.3 fL (80.0-100.0); Macrocytosis Slight; RBC 3.26 m/uL (3.80-5.40); RDW 17.4 % (11.5-15.5); WBC 2.9 k/uL (3.8-10.6)
[2018-11-13 15:58] LABS: Platelet Count 98 k/uL (150-450)
[2018-11-13 16:17] LABS: INR 1.5 (<1.2); Prothrombin Time 15.4 sec (9.0-12.0)
[2018-11-13 16:18] LABS: Albumin 2.3 g/dL (3.5-5.0); Calcium 7.6 mg/dL (8.4-10.2); Potassium 4.9 mmol/L (3.5-5.1); Total Bilirubin 1.8 mg/dL (0.2-1.3); Total Protein 5.6 g/dL (6.3-8.2)
[2018-11-13] MEDS: LEVOFLOXACIN 500 MG TAB PO SCH (16:24)
--- NOTE | 2018-11-13 16:48 | P.CONS ---
History of Present Illness - Reason for Consult Consult date: 11/13/18 - Chief Complaint Abdominal pain - History of Present Illness 73-year-old female who is a very complicated past medical history that includes nonalcoholic liver cirrhosis diagnosed back in 2002. She has difficulties with thrombocytopenia and chronic anemia associated. In 2010 she had a perforated colon in colectomy and ileostomy placement occurred. 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 In 2012 she underwent evaluation there was an attempt to resect liver mass however could not be done in chemoembolization occurred at [facility]. Since that time she's had follow-up with oncology at [facility] as well as [facility] in [place]. In June 2016 there was ongoing well- differentiated hepatocellular carcinoma. In October 2016 and underwent further chemoembolization to the left hepatic lobe tumor. 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 Earlier in the month she was in the emergency center because of ongoing pain and discomfort as well as concern for urinary tract infection. At that time she was having an increased amount of output from her ostomy that was much more liquid than it had been in the past. She had an extensive amount ascites and a paracentesis was performed with improvement of her symptoms. His related that MRSA was sensitive from her stool she's been treated via Dr. Esparza with a course of vancomycin and Questran. With increasing amounts of abdominal pain increasing ascites she presents back to the emergency center and with altered pain medication is feeling somewhat better at this time. With leukopenia and history of MRSA in the stool infectious disease consultation was requested Review of Systems HEENT:Denies headache or acute visual change. Denies sinus or mouth discomforts. Denies neck stiffness or pain. Denies significant oral cavity pain. Denies difficulty on swallowing. Lungs: Denies significant shortness of breath, cough, sputum production, or hemoptysis. Cardiovascular: Denies significant shortness of breath, chest pain, chest wall pain, orthopnea, dyspnea on exertion, syncope Gastrointestinal: Nausea is improved no emesis today, ongoing abdominal pain. Levels about 5 which is improved since admission. Stool is formed at the ileostomy site is much improved from her last admission. Musculoskeletal: denies significant myalgias or arthralgias. No new joint swelling. Denies new back pain. Skin: Denies new rash or lesions. No new ulcers or wounds are related.. Neuro: Denies headache or visual change. Denies any new onset weakness or difficulty with ambulation. Denies falls or seizures. Psychiatric:Denies anxiety or depression. Endocrine: Chronic fatigue, weight loss with chronic pain Past Medical History Past Medical History: Cancer, Diabetes Mellitus, Hypertension, Liver Disease Additional Past Medical History / Comment(s): liver ca- had chemo 10-03-18,past ascities-paracentesis, ( ulcer(sx),diveticulitis anx/depression History of Any Multi-Drug Resistant Organisms: MRSA Year Discovered:: 10/23/18 MDRO Source:: MRSA STOOL Past Surgical History: Appendectomy, Bowel Resection, Section, Cholecystectomy, Hysterectomy, Tonsillectomy Additional Past Surgical History / Comment(s): rt rotator cuff repair,carpal tunnel release .liver bx,ilieostomy ,11-02-18 had paracentesis. Multiple chemo embolizations of liver tumors Past Anesthesia/Blood Transfusion Reactions: No Reported Reaction Additional Psychological History / Comment(s): Reformed smoker. . Retired. No experience. No animal exposures Smoking Status: Former smoker - Past Family History Mother History Unknown: Yes Family Medical History: Congestive Heart Failure (CHF) Medications and Allergies Home Medications and Allergies Comment(s): Current Medications Aspirin (Aspirin) 81 mg PO DAILY [facility] Last Admin: 11/13/18 08:44 Dose: 81 mg Cholestyramine Resin (Questran) 4 gm PO TID BETWEEN MEALS [facility] Last Admin: 11/13/18 16:23 Dose: 4 gm Clonazepam (Klonopin) 0.5 mg PO DAILY [facility] Last Admin: 11/13/18 08:44 Dose: 0.5 mg Dicyclomine HCl (Bentyl) 10 mg PO TID [facility] Last Admin: 11/13/18 16:23 Dose: 10 mg Furosemide (Lasix) 40 mg PO DAILY [facility] Last Admin: 11/13/18 08:44 Dose: 40 mg Sodium Chloride (Saline 0.9%) 1,000 mls @ 85 mls/hr IV .[id number] [facility] Last Admin: 11/13/18 16:24 Dose: Not Given Insulin Aspart (Novolog) 0 unit SQ [facility]; Protocol Last Admin: 11/13/18 12:27 Dose: 1 unit Levofloxacin (Levaquin) 500 mg PO Q24H [facility] Last Admin: 11/13/18 16:24 Dose: Not Given Magnesium Oxide (Mag-Ox) 400 mg PO DAILY [facility] Last Admin: 11/13/18 08:44 Dose: 400 mg Metoprolol Tartrate (Lopressor) 12.5 mg PO DAILY [facility] Last Admin: 11/13/18 08:43 Dose: 12.5 mg Morphine Sulfate (Morphine Sulfate (Inj)) 4 mg IV Q4HR PRN PRN Reason: Severe Pain Last Admin: 11/13/18 11:50 Dose: 4 mg Morphine Sulfate (Ms Contin) 15 mg PO Q12HR [facility] Last Admin: 11/13/18 08:44 Dose: 15 mg Naloxone HCl (Narcan) 0.2 mg IV Q2M PRN PRN Reason: Opioid Reversal Nystatin (Mycostatin Oral Susp) 500,000 unit PO QID [facility] Last Admin: 11/13/18 12:27 Dose: 500,000 unit Ondansetron HCl (Zofran) 4 mg IVP Q8HR PRN PRN Reason: Nausea And Vomiting Last Admin: 11/12/18 06:12 Dose: 4 mg Ondansetron HCl (Zofran Odt) 8 mg PO Q8HR PRN PRN Reason: Nausea And Vomiting Pantoprazole Sodium (Protonix) 40 mg PO AC-BRKFST [facility] Last Admin: 11/13/18 08:44 Dose: 40 mg Sucralfate (Carafate) 1 gm PO QID [facility] Last Admin: 11/13/18 12:27 Dose: 1 gm Home Medications Medication Instructions Recorded Confirmed Type Dicyclomine [Bentyl] 10 mg PO TID 10/23/18 11/11/18 History Furosemide [Lasix] 40 mg PO DAILY 10/23/18 11/11/18 History Omeprazole [PriLOSEC] 20 mg PO BID 10/23/18 11/11/18 History Sucralfate [Carafate] 1 gm PO QID 10/23/18 11/11/18 History Aspirin EC [Ecotrin Low Dose] 81 mg PO DAILY 10/24/18 11/11/18 History Insulin NPH Human Isophane 18 unit SQ BID 10/24/18 11/11/18 History [NovoLIN N] Insulin Regular, Human [NovoLIN R] 8 unit SQ AC-TID 10/24/18 11/11/18 History Magnesium 200 mg PO DAILY 10/24/18 11/11/18 History Metoprolol Tartrate 12.5 mg PO DAILY 10/24/18 11/11/18 History Morphine Sulfate ER [Ms Contin] 15 mg PO Q12HR 10/24/18 11/11/18 History Ondansetron [Zofran ODT] 8 mg PO Q8HR 10/24/18 11/11/18 History Nystatin 100,000 Unit/ml Susp 500,000 unit PO QID #12 cup 11/03/18 11/11/18 Rx [Mycostatin Oral Susp] Vancomycin HCl [Vancocin HCl] 250 mg PO Q6HR 7 Days #28 capsule 11/03/18 Rx clonazePAM [KlonoPIN] 0.5 mg PO DAILY tab 11/03/18 11/11/18 Rx Cholestyramine (with Sugar) 4 gm PO TID #21 packet 11/04/18 11/11/18 Rx [Questran] Allergies Allergy/AdvReac Type Severity Reaction Status Date / Time GREG Inhibitors Allergy Cough Verified 11/11/18 13:18 amlodipine Allergy Rash/Hives Verified 11/11/18 13:18 oxycodone Allergy Rash/Hives Verified 11/11/18 13:18 Penicillins Allergy Rash/Hives Verified 11/11/18 13:18 hydromorphone [From Dilaudid] AdvReac Unknown Verified 11/11/18 13:18 sodium dodecyclbenzene Allergy Rash/Hives Uncoded 11/11/18 13:05 sulfonate Physical Exam Vitals: Vital Signs Temp Pulse Resp BP Pulse Ox 11/13/18 14:03 16 11/13/18 12:32 98 F 52 L 16 91/43 100 11/13/18 05:00 97.4 F L 61 17 100/49 98 11/12/18 21:37 98.7 F 59 L 16 90/57 99 Intake and Output 11/13/18 11/13/18 11/13/18 06:59 14:59 22:59 Intake Total 1220 3125 Balance 1220 3125 Intake: Intake, IV Titration 680 1020 Amount Sodium Chloride 0.9% 1, 680 1020 000 ml @ 85 mls/hr IV . [id number] [facility] Rx#:[id number] Oral 540 2105 Other: Voiding Method Toilet Toilet # Voids 2 3 # Bowel Movements 1 1 Weight 90.718 kg 73-year-old woman nonjaundiced comfortable at this time HEENT: Anicteric conjunctiva are pink and moist nasal mucosa grossly intact without significant lesions, there is no thrush. Dentition somewhat poor Neck: The neck is supple without significant lymphadenopathy or thyromegaly. Lungs: Good bilateral air entry without significant crackles or wheezing. There is no significant bronchial sounds. There is no egophony or dullness. Heart: Regular rate and rhythm with an audible S1-S2, no S3 no S4. There is no significant murmur click or rub, PMI was nondisplaced. Abdomen: Distended, evidence of significant peristomal herniation, no evidence of dehiscence, evidence of abdominal fluid, some generalized tenderness but no point tenderness, some tenderness over the right upper quadrant is also noted Extremities: The upper extremities have excellent pulses they are symmetric, no significant petechiae or telangiectasia. No splinter hemorrhages were noted. The lower extremities have only minimal edema. The peripheral pulses were 2+ and symmetric. Neuro: Awake alert oriented to person place and time. There are no acute new gross focal sensory motor deficits. Results CBC & Chem 7: 11/13/18 15:35 11/13/18 15:35 Labs: Abnormal Lab Results - Last 24 Hours (Table) 11/12/18 11/12/18 11/12/18 Range/Units 07:45 16:52 20:58 WBC (3.8-10.6) k/uL RBC (3.80-5.40) m/uL Hgb (11.4-16.0) gm/dL Hct (34.0-46.0) % MCHC (31.0-37.0) g/dL RDW (11.5-15.5) % Plt Count (150-450) k/uL PT (9.0-12.0) sec INR (<1.2) Sodium (137-145) mmol/L Chloride (98-107) mmol/L Glucose (74-99) mg/dL POC Glucose (mg/dL) 234 H 169 H (75-99) mg/dL Hemoglobin A1c 7.1 H (4.0-6.0) % Calcium (8.4-10.2) mg/dL Total Bilirubin (0.2-1.3) mg/dL AST (14-36) U/L Alkaline Phosphatase (38-126) U/L Total Protein (6.3-8.2) g/dL Albumin (3.5-5.0) g/dL 11/13/18 11/13/18 11/13/18 Range/Units 11:49 15:35 15:35 WBC 2.9 L (3.8-10.6) k/uL RBC 3.26 L (3.80-5.40) m/uL Hgb 9.5 L (11.4-16.0) gm/dL Hct 32.1 L (34.0-46.0) % MCHC 29.7 L (31.0-37.0) g/dL RDW 17.4 H (11.5-15.5) % Plt Count 98 L (150-450) k/uL PT 15.4 H (9.0-12.0) sec INR 1.5 H (<1.2) Sodium (137-145) mmol/L Chloride (98-107) mmol/L Glucose (74-99) mg/dL POC Glucose (mg/dL) 150 H (75-99) mg/dL Hemoglobin A1c (4.0-6.0) % Calcium (8.4-10.2) mg/dL Total Bilirubin (0.2-1.3) mg/dL AST (14-36) U/L Alkaline Phosphatase (38-126) U/L Total Protein (6.3-8.2) g/dL Albumin (3.5-5.0) g/dL 11/13/18 Range/Units 15:35 WBC (3.8-10.6) k/uL RBC (3.80-5.40) m/uL Hgb (11.4-16.0) gm/dL Hct (34.0-46.0) % MCHC (31.0-37.0) g/dL RDW (11.5-15.5) % Plt Count (150-450) k/uL PT (9.0-12.0) sec INR (<1.2) Sodium 135 L (137-145) mmol/L Chloride 110 H (98-107) mmol/L Glucose 154 H (74-99) mg/dL POC Glucose (mg/dL) (75-99) mg/dL Hemoglobin A1c (4.0-6.0) % Calcium 7.6 L (8.4-10.2) mg/dL Total Bilirubin 1.8 H (0.2-1.3) mg/dL AST 56 H (14-36) U/L Alkaline Phosphatase 167 H (38-126) U/L Total Protein 5.6 L (6.3-8.2) g/dL Albumin 2.3 L (3.5-5.0) g/dL Microbiology - Last 24 Hours (Table) 11/11/18 14:00 Urine Culture - Final Urine,Voided Laboratory Results WBC 2.9 k/uL (3.8-10.6) L 11/13/18 15:35 RBC 3.26 m/uL (3.80-5.40) L 11/13/18 15:35 Hgb 9.5 gm/dL (11.4-16.0) L 11/13/18 15:35 Hct 32.1 % (34.0-46.0) L 11/13/18 15:35 MCV 98.3 fL (80.0-100.0) 11/13/18 15:35 MCH 29.2 pg (25.0-35.0) 11/13/18 15:35 MCHC 29.7 g/dL (31.0-37.0) L 11/13/18 15:35 RDW 17.4 % (11.5-15.5) H 11/13/18 15:35 Plt Count 98 k/uL (150-450) L 11/13/18 15:35 Neutrophils % 57 % 11/11/18 14:00 Neutrophils % (Manual) 47 % 11/12/18 07:45 Band Neutrophils % 2 % 11/12/18 07:45 Lymphocytes % 21 % 11/11/18 14:00 Lymphocytes % (Manual) 35 % 11/12/18 07:45 Monocytes % 7 % 11/11/18 14:00 Monocytes % (Manual) 4 % 11/12/18 07:45 Eosinophils % 12 % 11/11/18 14:00 Eosinophils % (Manual) 11 % 11/12/18 07:45 Basophils % 0 % 11/11/18 14:00 Basophils % (Manual) 1 % 11/12/18 07:45 Neutrophils # 1.4 k/uL (1.3-7.7) 11/11/18 14:00 Neutrophils # (Manual) 1.30 k/uL (1.3-7.7) 11/12/18 07:45 Lymphocytes # 0.5 k/uL (1.0-4.8) L 11/11/18 14:00 Lymphocytes # (Manual) 0.98 k/uL (1.0-4.8) L 11/12/18 07:45 Monocytes # 0.2 k/uL (0-1.0) 11/11/18 14:00 Monocytes # (Manual) 0.11 k/uL (0-1.0) 11/12/18 07:45 Eosinophils # 0.3 k/uL (0-0.7) 11/11/18 14:00 Eosinophils # (Manual) 0.31 k/uL (0-0.7) 11/12/18 07:45 Basophils # 0.0 k/uL (0-0.2) 11/11/18 14:00 Basophils # (Manual) 0.03 k/uL (0-0.2) 11/12/18 07:45 Nucleated RBCs 0 /100 WBC (0-0) 11/12/18 07:45 Manual Slide Review Performed 11/12/18 07:45 Hypochromasia Marked 11/12/18 07:45 Anisocytosis Slight 11/12/18 07:45 Macrocytosis Slight 11/12/18 07:45 PT 15.4 sec (9.0-12.0) H 11/13/18 15:35 INR 1.5 (<1.2) H 11/13/18 15:35 Sodium 135 mmol/L (137-145) L 11/13/18 15:35 Potassium 4.9 mmol/L (3.5-5.1) 11/13/18 15:35 Chloride 110 mmol/L (98-107) H 11/13/18 15:35 Carbon Dioxide 23 mmol/L (22-30) 11/13/18 15:35 Anion Gap 2 mmol/L 11/13/18 15:35 BUN 7 mg/dL (7-17) 11/13/18 15:35 Creatinine 1.01 mg/dL (0.52-1.04) 11/13/18 15:35 Est GFR (CKD-EPI)AfAm 65 (>60 ml/min/1.73 sqM) 11/13/18 15:35 Est GFR (CKD-EPI)NonAf 56 (>60 ml/min/1.73 sqM) 11/13/18 15:35 Glucose 154 mg/dL (74-99) H 11/13/18 15:35 POC Glucose (mg/dL) 150 mg/dL (75-99) H 11/13/18 11:49 POC Glu Eye Technician Darcie Francisco 11/13/18 11:[address] Glu mg/dL 157 11/12/18 07:45 Hemoglobin A1c 7.1 % (4.0-6.0) H 11/12/18 07:45 Plasma Lactic Acid Carlos 1.7 mmol/L (0.7-2.0) 11/11/18 14:00 Calcium 7.6 mg/dL (8.4-10.2) L 11/13/18 15:35 Total Bilirubin 1.8 mg/dL (0.2-1.3) H 11/13/18 15:35 AST 56 U/L (14-36) H 11/13/18 15:35 ALT 32 U/L (9-52) 11/13/18 15:35 Alkaline Phosphatase 167 U/L (38-126) H 11/13/18 15:35 Total Protein 5.6 g/dL (6.3-8.2) L 11/13/18 15:35 Albumin 2.3 g/dL (3.5-5.0) L 11/13/18 15:35 Amylase 60 U/L (30-110) 11/11/18 14:00 Lipase 12 U/L (23-300) L 11/11/18 14:00 Urine Color Yellow 11/11/18 14:00 Urine Appearance Cloudy (Clear) H 11/11/18 14:00 Urine pH 5.5 (5.0-8.0) 11/11/18 14:00 Ur Specific [place] 1.015 (1.001-1.035) 11/11/18 14:00 Urine Protein Trace (Negative) H 11/11/18 14:00 Urine Glucose (UA) Negative (Negative) 11/11/18 14:00 Urine Ketones Negative (Negative) 11/11/18 14:00 Urine Blood Trace (Negative) H 11/11/18 14:00 Urine Nitrite Negative (Negative) 11/11/18 14:00 Urine Bilirubin Negative (Negative) 11/11/18 14:00 Urine Urobilinogen <2.0 mg/dL (<2.0) 11/11/18 14:00 Ur Leukocyte Esterase Large (Negative) H 11/11/18 14:00 Urine RBC 20 /hpf (0-5) H 11/11/18 14:00 Urine WBC 27 /hpf (0-5) H 11/11/18 14:00 Ur Squamous Epith Cells 10 /hpf (0-4) H 11/11/18 14:00 Urine Bacteria Many /hpf (None) H 11/11/18 14:00 Urine Mucus Occasional /hpf (None) H 11/11/18 14:00 Urine Yeast (Budding) Rare /hpf (None) H 11/11/18 14:00 Microbiology 11/11/18 14:00 Urine,Voided Urine Culture - Final Assessment and Plan (1) Intractable abdominal pain Current Visit: Yes Status: Acute Code(s): R10.9 - UNSPECIFIED ABDOMINAL PAIN SNOMED Code(s): 94434386 (2) Hepatocellular carcinoma Current Visit: No Status: Acute Priority: High Code(s): C22.0 - LIVER CELL CARCINOMA SNOMED Code(s): 229635920 (3) 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 There is been ulceration of her pain medications since apparently has been somewhat helpful in control of her baseline pain. The very liquidy thin stool from her ileostomy is improved. She was treated with a course of Vancocin capsules and remains on cholestyramine with ongoing improved stool consistency from the ileostomy. At this time does not appear to have any active infection continue the cholestyramine to maintain stool consistency. There was a concern for urinary infection admission does not appear to have UTI and other antibiotic therapy is discontinued. She has relative leukopenia but no absolute neutropenia occurring, is afebrile. No antibiotic therapy required at this time. Current Visit: Yes Status: Acute Code(s): Z22.322 - CARRIER OR SUSPECTED CARRIER OF METHICILLIN RESIS STAPH SNOMED Code(s): 622819931
[2018-11-13 17:08] LABS: Glucose,Whole Blood 160 mg/dL (75-99)
--- NOTE | 2018-11-13 17:16 | P.PN ---
Subjective Progress Note Date: 11/13/18 Principal diagnosis: Hepatocellular Carcinoma Patient still with complaints of pain and increased "bloating" Objective - Vital Signs Vital signs: Vital Signs Temp 98 F 11/13/18 12:32 Pulse 52 L 11/13/18 12:32 Resp 16 11/13/18 14:03 BP 91/43 11/13/18 12:32 Pulse Ox 100 11/13/18 12:32 Intake & Output 11/12/18 11/13/18 11/13/18 18:59 06:59 18:59 Intake Total 3070 2100 3125 Balance 3070 2100 3125 Weight 90.718 kg 90.718 kg Intake: Intake, IV Titration 1020 1020 1020 Amount Sodium Chloride 0.9% 1, 1020 1020 1020 000 ml @ 85 mls/hr IV . [id number] [facility] Rx#:[id number] Oral 2049 1079 2104 Other: Voiding Method Toilet Toilet Toilet # Voids 4 2 3 # Bowel Movements 1 1 1 - Exam - Constitutional General appearance: Present: cooperative, no acute distress, obese - EENT EENT Comment(s): Right jaw appears less swollen, able to palpate jaw/TMJ with not as intense of a pain response from pt. Jaw has FROM Eyes: Present: anicteric sclerae, EOMI ENT: Present: normal oropharynx - Respiratory Respiratory: bilateral: CTA - Cardiovascular Heart sounds: normal: S1, S2 - Gastrointestinal General gastrointestinal: Present: normal bowel sounds,firm, increased ascite. Localized gastrointestinal: tender: RUQ, epigastric periumbilical - Integumentary Integumentary: Present: normal - Neurologic Neurologic: Present: CNII-XII intact - Musculoskeletal Musculoskeletal: Present: strength equal bilaterally - Psychiatric Psychiatric: Present: A&O x's 3, appropriate affect, intact judgment & insight - Labs CBC & Chem 7: 11/13/18 15:35 11/13/18 15:35 Labs: Abnormal Lab Results - Last 24 Hours (Table) 11/12/18 11/12/18 11/12/18 Range/Units 07:45 16:52 20:58 POC Glucose (mg/dL) 234 H 169 H (75-99) mg/dL Hemoglobin A1c 7.1 H (4.0-6.0) % 11/13/18 Range/Units 11:49 POC Glucose (mg/dL) 150 H (75-99) mg/dL Hemoglobin A1c (4.0-6.0) % Microbiology - Last 24 Hours (Table) 11/11/18 14:00 Urine Culture - Final Urine,Voided Assessment and Plan Plan: CT Scan Abdomen and Pelvis Reviewed. Assessment and Recommendations: 1. Hepatocellular Carcinoma (Original Diagnosis 2012): - Multiple Consultations through multiple outside hospitals with multiple physicians - Status Post Chem[facility]embolisation ([facility]) , 2016 ([facility]) left lobe mass, and 2018 Right Lobe Mass ([facility]) , partial tumor resection with Lysis of Adhesions ([facility] with Dr. Desai) 2. Non-Alcoholic Liver Cirrhosis: - Has been evaluatedby Hepatology in past and deemed not a candidate for transplanr 3. Abdominal Ascites: Progressing - Status POst Therapeutic and Diagnostic Paracentesis last admission - Pathology of Ascites fluid negative for malignant cells 4. Diverticulitis with History of Bowel Perforation with colectomy and Ileostomy (2010) - Increased Output in ostomy per patient 5. Chronic abdominal pain with multiple admissions for pain at outside hospitals and most recently [facility]: - Currently maintained on Long acting MS Contin - She does not know who wrote her last Script as outpatient, once patient is established in office we can assist in management of her pain contract if she adheres to follow-ups (history of multiple physicians, multiple appointments made at office and has cancelled and not shown) 6. Recent Staph infection in Stool: - Vancomycin PO 7. UTI: Diagnosed and treated at recent admission this month 8. Inability to tolerate PO Intake: Persistent nausea and vomiting per patient - New and progressing over the past week - Supportive care - Abdominal imaging reviewed, will order repeat abdominal paracentesis for therapeutic purposes 9. Increased Ileostomy Output: Likely related to recent infection: - Continue PO Vanco per ID - Continue Questran 10. Leukopenia: WBC 2.8, neutrophils sufficient above 1, Lymphocytopenia - mildly decreased: - Likely worsening with acute infections and underlying liver disease - Monitor closely 11. THrombocytopenia - Chronic, secondary to underlying Cirrhosis of liver - [place] is within safe range above 50K, Monitor daily CBC 12. Normocytic Anemia - Multifactoral - Chronic disease/inflammation Liver Cirrhosis and Malignancy - No intervention needed at this time, stable above 7 Thank you for allowing us to participate in the care of this patient, we will follow along with you. Physician Attest: I have completed the full history and physical of this patient and agree with above dictation by Charlene Burns NP. Dictated as a scribe Oncology Plan: - Recent AFT below 2.5 - With know recurrent locally advanced disease possible benefit from PO cancer therapy such as Nexavaar (must ensure patient was not treated in past, she denies ever receiving any PO cancer therapy, although inconsistent patient history with multiple outside hospitals and physicians) - Therapeutic Paracentesis for comfort after assessment with ultrasound - Increase MS contin q8 hours - Continue Monitor CBC daily - Will make another follow-up appointment with patient in office with Dr. Hernandez (prior appointments made with Dr. Hernandez which she failed to show) - Recommend increased ER pain management to limit need for breakthrough and recurrent hospitalizations for pain - Antiemetics and supportive care
--- NOTE | 2018-11-13 18:36 | PN ---
PROGRESS NOTE DATE OF SERVICE: 11/13/2018 She was seen on 11/13/2018. She has been having some abdominal pain. She feels weak. She denies any chest pain. On physical examination, blood pressure is 91/43, respiratory rate is 16, pulse rate of 52, temperature 98 degrees Fahrenheit, O2 saturation on room air is 100%. HEENT is unremarkable. Chest is clear. Cardiovascular system reveals an S1, S2. Abdomen is soft. there is no pedal edema. LABS: Reveal white count of 2.9, hemoglobin of 9.5, sodium 135, potassium 4.9, chloride 110, bicarb 23. IMPRESSION: At this time: 1. Hepatocellular carcinoma with increasing ascites. 2. Abdominal pain, intractable. 3. Suspected carrier of methicillin-resistant Staph aureus. Have the patient evaluated by ID. Continue pain control as well as IV fluids. Increase her activity level. Her prognosis is fair. MMODL / IJN: [id number] /
[2018-11-13 19:57] LABS: Eosinophils # (M) 0.15 k/uL (0-0.7); Lymphocytes # (M) 1.45 k/uL (1.0-4.8); Monocytes # (M) 0.17 k/uL (0-1.0); Neutrophils # (M) 1.13 k/uL (1.3-7.7); Neutrophils % (M) 39 %; Nucleated Red Blood Cells 0 /100 WBC (0-0); Total Cells Counted 100
[2018-11-13] MEDS: HEPARIN SODIUM,PORCINE 5,000 UNIT/ML 1 ML VIAL SQ SCH (21:06)
[2018-11-13 21:09] LABS: Glucose,Whole Blood 272 mg/dL (75-99)
[2018-11-14] MEDS: MORPHINE SULFATE 4 MG/ML SYRINGE IV PRN ×4 (01:14→21:46)
[2018-11-14] MEDS: MORPHINE SULFATE ER 15 MG TABLET PO SCH ×3 (06:37→21:45)
[2018-11-14] MEDS: SODIUM CHLORIDE 0.9% 1,000 ML IV SCH (06:38)
[2018-11-14 07:19] LABS: Glucose,Whole Blood 116 mg/dL (75-99)
[2018-11-14] MEDS: INSULIN ASPART 100 UNIT/ML 1 ML 10 ML VIAL SQ SCH ×4 (07:26→21:45)
[2018-11-14 07:36] LABS: Anisocytosis Slight; HCT 35.7 % (34.0-46.0); Hypochromasia Marked; MCH 29.8 pg (25.0-35.0); MCHC 30.7 g/dL (31.0-37.0); MCV 97.1 fL (80.0-100.0); Macrocytosis Slight; Mean Platelet Volume 8.5; Platelet Count 119 k/uL (150-450); RBC 3.67 m/uL (3.80-5.40); RDW 17.3 % (11.5-15.5); WBC 4.6 k/uL (3.8-10.6)
--- NOTE | 2018-11-14 07:40 | US ---
EXAMINATION TYPE: US abdomen limited DATE OF EXAM: 11/14/2018 COMPARISON: CT abdomen pelvis dated 11/11/2018 CLINICAL HISTORY: possible ascites. CT showed ascites, abd distention Moderate amount of fluid seen within all four quadrants of the abdomen. Partial visualization of the contracted cirrhotic liver. IMPRESSION: Moderate abdominal ascites likely on the basis of cirrhosis.
[2018-11-14] MEDS: PANTOPRAZOLE 40 MG TABLET PO SCH (08:50)
[2018-11-14] MEDS: clonazePAM 0.5 MG TAB PO SCH (08:50)
[2018-11-14] MEDS: METOPROLOL TARTRATE 12.5 MG TAB PO SCH (08:50)
[2018-11-14] MEDS: ASPIRIN 81 MG PO SCH (08:50)
[2018-11-14] MEDS: HEPARIN SODIUM,PORCINE 5,000 UNIT/ML 1 ML VIAL SQ SCH (08:50)
[2018-11-14] MEDS: MAGNESIUM OXIDE 400 MG TAB PO SCH (08:50)
[2018-11-14] MEDS: CHOLESTYRAMINE (WITH SUGAR) 4 GM PACKET PO SCH ×3 (08:51→18:09)
[2018-11-14] MEDS: SUCRALFATE 1 GM TAB PO SCH ×4 (08:51→23:45)
[2018-11-14] MEDS: FUROSEMIDE 40 MG TAB PO SCH (08:51)
[2018-11-14] MEDS: DICYCLOMINE 10 MG CAP PO SCH ×3 (08:51→21:45)
[2018-11-14] MEDS: NYSTATIN 100,000 UNIT/ML SUSP 500,000 UNIT/5 ML CUP PO SCH ×4 (08:52→21:46)
[2018-11-14 09:03] LABS: Eosinophils # (M) 0.41 k/uL (0-0.7); Lymphocytes # (M) 1.84 k/uL (1.0-4.8); Monocytes # (M) 0.23 k/uL (0-1.0); Neutrophils # (M) 2.12 k/uL (1.3-7.7); Neutrophils % (M) 46 %; Nucleated Red Blood Cells 0 /100 WBC (0-0); Total Cells Counted 100
[2018-11-14 11:09] LABS: Glucose,Whole Blood 211 mg/dL (75-99)
--- NOTE | 2018-11-14 13:26 | P.PN ---
Subjective Progress Note Date: 11/14/18 11/14/2018 this patient has a history of hepatocellular carcinoma. She presented to the hospital with intractable abdominal pain. Is followed closely by oncology. They have increased her MS Contin to 15 mg by mouth every 8 hours as well as she is getting IV morphine. Oncology has ordered abdominal ultrasound which is showing a moderate amount of ascites. White count has improved from 2.9-4.6 hemoglobin 9.5 up to 11 and platelets 90 06/15/2019. Awaiting further oncology recommendations regarding a possible paracentesis as well as further pain control. Per ID patient needs no further antibiotic coverage she completed oral Vanco treatment for MRSA in the colon. He also ruled out for UTI. A1c 7.1. Patient still reporting abdominal pain. However, MS Contin frequency change has helped. She denies any chest pain or shortness of breath. Denies any nausea or vomiting. Reports having regular bowel movements. Denies any difficulty with urinating. Objective - Vital Signs Vital signs: Vital Signs Temp 98.8 F 11/14/18 12:09 Pulse 67 11/14/18 12:09 Resp 16 11/14/18 12:09 BP 112/46 11/14/18 12:09 Pulse Ox 100 11/14/18 12:09 Intake & Output 11/13/18 11/14/18 11/14/18 18:59 06:59 18:59 Intake Total 3125 580 Balance 3125 580 Weight 90.718 kg Intake: Intake, IV Titration 1020 Amount Sodium Chloride 0.9% 1, 1020 000 ml @ 85 mls/hr IV . [id number] [facility] Rx#:[id number] Oral 6224 371 Other: Voiding Method Toilet Toilet Toilet # Voids 3 1 # Bowel Movements 1 - Exam Head normocephalic Neck supple Lungs clear to auscultation bilaterally no wheezing or crackles Heart regular rate and rhythm S1-S2, no rub or gallop Abdomen is soft right upper quadrant tenderness nondistended positive bowel sounds no hepatosplenomegaly Extremities no edema Neuro alert and orientated to 3 - Labs CBC & Chem 7: 11/14/18 07:17 11/13/18 15:35 Labs: Abnormal Lab Results - Last 24 Hours (Table) 11/13/18 11/13/18 11/13/18 Range/Units 15:35 15:35 15:35 WBC 2.9 L (3.8-10.6) k/uL RBC 3.26 L (3.80-5.40) m/uL Hgb 9.5 L (11.4-16.0) gm/dL Hct 32.1 L (34.0-46.0) % MCHC 29.7 L (31.0-37.0) g/dL RDW 17.4 H (11.5-15.5) % Plt Count 98 L (150-450) k/uL Neutrophils # (Manual) 1.13 L (1.3-7.7) k/uL PT 15.4 H (9.0-12.0) sec INR 1.5 H (<1.2) Sodium 135 L (137-145) mmol/L Chloride 110 H (98-107) mmol/L Glucose 154 H (74-99) mg/dL POC Glucose (mg/dL) (75-99) mg/dL Calcium 7.6 L (8.4-10.2) mg/dL Total Bilirubin 1.8 H (0.2-1.3) mg/dL AST 56 H (14-36) U/L Alkaline Phosphatase 167 H (38-126) U/L Total Protein 5.6 L (6.3-8.2) g/dL Albumin 2.3 L (3.5-5.0) g/dL 11/13/18 11/13/18 11/14/18 Range/Units 17:07 21:07 07:17 WBC (3.8-10.6) k/uL RBC 3.67 L (3.80-5.40) m/uL Hgb 11.0 L (11.4-16.0) gm/dL Hct (34.0-46.0) % MCHC 30.7 L (31.0-37.0) g/dL RDW 17.3 H (11.5-15.5) % Plt Count 119 L (150-450) k/uL Neutrophils # (Manual) (1.3-7.7) k/uL PT (9.0-12.0) sec INR (<1.2) Sodium (137-145) mmol/L Chloride (98-107) mmol/L Glucose (74-99) mg/dL POC Glucose (mg/dL) 160 H 272 H (75-99) mg/dL Calcium (8.4-10.2) mg/dL Total Bilirubin (0.2-1.3) mg/dL AST (14-36) U/L Alkaline Phosphatase (38-126) U/L Total Protein (6.3-8.2) g/dL Albumin (3.5-5.0) g/dL 11/14/18 11/14/18 Range/Units 07:18 11:07 WBC (3.8-10.6) k/uL RBC (3.80-5.40) m/uL Hgb (11.4-16.0) gm/dL Hct (34.0-46.0) % MCHC (31.0-37.0) g/dL RDW (11.5-15.5) % Plt Count (150-450) k/uL Neutrophils # (Manual) (1.3-7.7) k/uL PT (9.0-12.0) sec INR (<1.2) Sodium (137-145) mmol/L Chloride (98-107) mmol/L Glucose (74-99) mg/dL POC Glucose (mg/dL) 116 H 211 H (75-99) mg/dL Calcium (8.4-10.2) mg/dL Total Bilirubin (0.2-1.3) mg/dL AST (14-36) U/L Alkaline Phosphatase (38-126) U/L Total Protein (6.3-8.2) g/dL Albumin (3.5-5.0) g/dL Assessment and Plan Assessment: 1. Hepatocellular carcinoma with moderate ascites noted on ultrasound. Await oncology further recommendations. Continue with MS Contin 15 mg by mouth every 8 hours and IV morphine as needed for pain control. Await further recommendations per oncology. Patient has required paracentesis in the past. Awaiting oncology recommendations regarding oral cancer therapy 2. Colonization with MRSA. Patient treated with oral vancomycin. Per ID no further active infection. Continue the cholestyramine to maintain stool consistency. 3. Nonalcoholic liver cirrhosis 4. Diverticulitis with history of bowel perforation and ileostomy placement 5. Leukopenia likely related to her recent acute infections and underlying liver disease 6. Thrombocytopenia chronic. Secondary to underlying liver cirrhosis 7. Chronic Normocytic anemia secondary to liver cirrhosis and malignancy. Neurology following GI prophylaxis Protonix and DVT prophylaxis subcu heparin I performed an examination of the patient and discussed their management with the physician Polisher Brass. I have reviewed the Physician Polisher Brass's notes and agree with the documented findings and plan of care
[2018-11-14] MEDS: ONDANSETRON 4 MG/2 ML VIAL IVP PRN (14:21)
[2018-11-14 17:07] LABS: Glucose,Whole Blood 152 mg/dL (75-99)
[2018-11-14 20:01] LABS: Glucose,Whole Blood 180 mg/dL (75-99)
[2018-11-15] MEDS: MORPHINE SULFATE ER 15 MG TABLET PO SCH ×3 (04:11→21:17)
[2018-11-15] MEDS: MORPHINE SULFATE 4 MG/ML SYRINGE IV PRN ×3 (04:11→17:41)
[2018-11-15 07:01] LABS: Glucose,Whole Blood 91 mg/dL (75-99)
[2018-11-15] MEDS: INSULIN ASPART 100 UNIT/ML 1 ML 10 ML VIAL SQ SCH ×4 (07:29→21:17)
[2018-11-15] MEDS: MAGNESIUM OXIDE 400 MG TAB PO SCH (07:53)
[2018-11-15] MEDS: FUROSEMIDE 40 MG TAB PO SCH (07:53)
[2018-11-15] MEDS: DICYCLOMINE 10 MG CAP PO SCH ×3 (07:53→21:18)
[2018-11-15] MEDS: PANTOPRAZOLE 40 MG TABLET PO SCH (07:53)
[2018-11-15] MEDS: ASPIRIN 81 MG PO SCH (07:53)
[2018-11-15] MEDS: SUCRALFATE 1 GM TAB PO SCH ×4 (07:53→21:18)
[2018-11-15] MEDS: METOPROLOL TARTRATE 12.5 MG TAB PO SCH (07:54)
[2018-11-15] MEDS: CHOLESTYRAMINE (WITH SUGAR) 4 GM PACKET PO SCH ×3 (07:54→17:41)
[2018-11-15] MEDS: NYSTATIN 100,000 UNIT/ML SUSP 500,000 UNIT/5 ML CUP PO SCH ×4 (07:54→21:18)
[2018-11-15] MEDS: ENOXAPARIN 40 MG/0.4 ML SYRINGE SQ SCH (07:54)
[2018-11-15 07:55] LABS: Anisocytosis Slight; HCT 29.3 % (34.0-46.0); Hypochromasia Marked; MCH 29.7 pg (25.0-35.0); MCHC 29.8 g/dL (31.0-37.0); MCV 99.7 fL (80.0-100.0); Macrocytosis Slight; Mean Platelet Volume 8.7; RBC 2.94 m/uL (3.80-5.40); RDW 17.3 % (11.5-15.5); WBC 3.1 k/uL (3.8-10.6)
[2018-11-15 07:56] LABS: HGB 8.8 gm/dL (11.4-16.0)
[2018-11-15] MEDS: clonazePAM 0.5 MG TAB PO SCH (08:01)
[2018-11-15 08:04] LABS: Calcium 7.8 mg/dL (8.4-10.2); Total Bilirubin 1.4 mg/dL (0.2-1.3); Total Protein 5.1 g/dL (6.3-8.2)
[2018-11-15 08:16] LABS: Eosinophils # (M) 0.16 k/uL (0-0.7); Lymphocytes # (M) 0.87 k/uL (1.0-4.8); Monocytes # (M) 0.16 k/uL (0-1.0); Neutrophils # (M) 1.92 k/uL (1.3-7.7); Neutrophils % (M) 62 %; Nucleated Red Blood Cells 0 /100 WBC (0-0); Ovalocytes Present; Platelet Count 81 k/uL (150-450); Polychromasia Present; Total Cells Counted 100
[2018-11-15 08:27] LABS: Potassium 5.5 mmol/L (3.5-5.1)
[2018-11-15 11:46] LABS: Glucose,Whole Blood 149 mg/dL (75-99)
[2018-11-15] MEDS ORDERED: SODIUM POLYSTYRENE SULFONATE 15 GM/60 ML BOTTLE PO STA (13:15)
--- NOTE | 2018-11-15 13:32 | P.PN ---
Subjective Progress Note Date: 11/15/18 11/14/2018 this patient has a history of hepatocellular carcinoma. She presented to the hospital with intractable abdominal pain. Is followed closely by oncology. They have increased her MS Contin to 15 mg by mouth every 8 hours as well as she is getting IV morphine. Oncology has ordered abdominal ultrasound which is showing a moderate amount of ascites. White count has improved from 2.9-4.6 hemoglobin 9.5 up to 11 and platelets 90 06/15/2019. Awaiting further oncology recommendations regarding a possible paracentesis as well as further pain control. Per ID patient needs no further antibiotic coverage she completed oral Vanco treatment for MRSA in the colon. He also ruled out for UTI. A1c 7.1. Patient still reporting abdominal pain. However, MS Contin frequency change has helped. She denies any chest pain or shortness of breath. Denies any nausea or vomiting. Reports having regular bowel movements. Denies any difficulty with urinating. On 11/15/2018 patient is currently resting comfortably in bed. Potassium elevated at 5.5. Will order 1 dose of Kayexalate and put patient on Lopressor potassium diet. Patient denies chest pain or shortness of breath. Patient denies nausea vomiting or diarrhea. Patient denies any urinary burning or frequency. Awaiting oncology recommendation for possible paracentesis. Objective - Vital Signs Vital signs: Vital Signs Temp 99 F 11/15/18 12:35 Pulse 60 11/15/18 12:35 Resp 18 11/15/18 12:35 BP 92/49 11/15/18 12:35 Pulse Ox 99 11/15/18 12:35 Intake & Output 11/14/18 11/15/18 11/15/18 18:59 06:59 18:59 Intake Total 1190 Balance 1190 Intake: Oral 1190 Other: Voiding Method Toilet Toilet Toilet # Voids 3 1 # Bowel Movements 3 - Exam Head normocephalic Neck supple Lungs clear to auscultation bilaterally no wheezing or crackles Heart regular rate and rhythm S1-S2, no rub or gallop Abdomen is soft right upper quadrant tenderness nondistended positive bowel sounds no hepatosplenomegaly Extremities no edema Neuro alert and orientated to 3 - Labs CBC & Chem 7: 11/15/18 06:39 11/15/18 06:39 Labs: Abnormal Lab Results - Last 24 Hours (Table) 11/14/18 11/14/18 11/15/18 Range/Units 17:05 19:59 06:39 WBC 3.1 L (3.8-10.6) k/uL RBC 2.94 L (3.80-5.40) m/uL Hgb 8.8 L D (11.4-16.0) gm/dL Hct 29.3 L (34.0-46.0) % MCHC 29.8 L (31.0-37.0) g/dL RDW 17.3 H (11.5-15.5) % Plt Count 81 L (150-450) k/uL Lymphocytes # (Manual) 0.87 L (1.0-4.8) k/uL Potassium (3.5-5.1) mmol/L Chloride (98-107) mmol/L Carbon Dioxide (22-30) mmol/L Glucose (74-99) mg/dL POC Glucose (mg/dL) 152 H 180 H (75-99) mg/dL Calcium (8.4-10.2) mg/dL Total Bilirubin (0.2-1.3) mg/dL AST (14-36) U/L Alkaline Phosphatase (38-126) U/L Total Protein (6.3-8.2) g/dL Albumin (3.5-5.0) g/dL 11/15/18 11/15/18 Range/Units 06:39 11:45 WBC (3.8-10.6) k/uL RBC (3.80-5.40) m/uL Hgb (11.4-16.0) gm/dL Hct (34.0-46.0) % MCHC (31.0-37.0) g/dL RDW (11.5-15.5) % Plt Count (150-450) k/uL Lymphocytes # (Manual) (1.0-4.8) k/uL Potassium 5.5 H (3.5-5.1) mmol/L Chloride 114 H (98-107) mmol/L Carbon Dioxide 18 L (22-30) mmol/L Glucose 103 H (74-99) mg/dL POC Glucose (mg/dL) 149 H (75-99) mg/dL Calcium 7.8 L (8.4-10.2) mg/dL Total Bilirubin 1.4 H (0.2-1.3) mg/dL AST 46 H (14-36) U/L Alkaline Phosphatase 163 H (38-126) U/L Total Protein 5.1 L (6.3-8.2) g/dL Albumin 2.0 L (3.5-5.0) g/dL Assessment and Plan Assessment: 1. Hepatocellular carcinoma with moderate ascites noted on ultrasound. Await oncology further recommendations. Continue with MS Contin 15 mg by mouth every 8 hours and IV morphine as needed for pain control. Await further recommendations per oncology. Patient has required paracentesis in the past. Awaiting oncology recommendations regarding oral cancer therapy 2. Colonization with MRSA. Patient treated with oral vancomycin. Per ID no further active infection. Continue the cholestyramine to maintain stool consistency. 3. Nonalcoholic liver cirrhosis. Abdominal ultrasound completed showing moderate abdominal ascites likely on basis process. Awaiting pathology recognition for possible paracentesis 4. Diverticulitis with history of bowel perforation and ileostomy placement 5. Leukopenia likely related to her recent acute infections and underlying liver disease 6. Thrombocytopenia chronic. Secondary to underlying liver cirrhosis 7. Chronic Normocytic anemia secondary to liver cirrhosis and malignancy. Oncology following 8. Hyperkalemia. Potassium 5.5. Will give 1 dose kayexlate ordered recheck potassium today. We'll also place patient on low potassium diet GI prophylaxis Protonix and DVT prophylaxis subcu heparin I performed an examination of the patient and discussed their management with the Nurse Practitioner. I have reviewed the Nurse Practitioner's notes and agree with the documented findings and plan of care
[2018-11-15 17:11] LABS: Glucose,Whole Blood 219 mg/dL (75-99)
[2018-11-15 19:53] LABS: Glucose,Whole Blood 182 mg/dL (75-99)
[2018-11-16] MEDS: MORPHINE SULFATE 4 MG/ML SYRINGE IV PRN ×3 (02:07→09:57)
[2018-11-16] MEDS: MORPHINE SULFATE ER 15 MG TABLET PO SCH ×3 (06:14→20:54)
[2018-11-16 06:54] LABS: Glucose,Whole Blood 159 mg/dL (75-99)
[2018-11-16] MEDS: INSULIN ASPART 100 UNIT/ML 1 ML 10 ML VIAL SQ SCH ×4 (08:04→20:54)
[2018-11-16] MEDS: ASPIRIN 81 MG PO SCH (08:05)
[2018-11-16] MEDS: clonazePAM 0.5 MG TAB PO SCH (08:05)
[2018-11-16] MEDS: PANTOPRAZOLE 40 MG TABLET PO SCH (08:05)
[2018-11-16] MEDS: DICYCLOMINE 10 MG CAP PO SCH ×3 (08:06→21:00)
[2018-11-16] MEDS: ENOXAPARIN 40 MG/0.4 ML SYRINGE SQ SCH (08:06)
[2018-11-16] MEDS: NYSTATIN 100,000 UNIT/ML SUSP 500,000 UNIT/5 ML CUP PO SCH ×4 (08:06→21:00)
[2018-11-16] MEDS: METOPROLOL TARTRATE 12.5 MG TAB PO SCH (08:06)
[2018-11-16] MEDS: MAGNESIUM OXIDE 400 MG TAB PO SCH (08:06)
[2018-11-16] MEDS: FUROSEMIDE 40 MG TAB PO SCH (08:06)
[2018-11-16] MEDS: SUCRALFATE 1 GM TAB PO SCH ×4 (08:07→21:00)
[2018-11-16 10:03] LABS: Anisocytosis Slight; Basophils % (A) 1 %; Eosinophils # (A) 0.2 k/uL (0-0.7); Eosinophils % (A) 6 %; HCT 27.1 % (34.0-46.0); HGB 8.5 gm/dL (11.4-16.0); Hypochromasia Marked; Lymphocytes # (A) 0.9 k/uL (1.0-4.8); Lymphocytes % (A) 32 %; MCHC 31.2 g/dL (31.0-37.0); MCV 96.2 fL (80.0-100.0); Macrocytosis Slight; Mean Platelet Volume 8.9; Monocytes # (A) 0.2 k/uL (0-1.0); Monocytes % (A) 9 %; Neutrophils # (A) 1.3 k/uL (1.3-7.7); Neutrophils % (A) 49 %; RBC 2.82 m/uL (3.80-5.40); RDW 17.3 % (11.5-15.5); WBC 2.6 k/uL (3.8-10.6)
[2018-11-16 10:04] LABS: Platelet Count 80 k/uL (150-450)
[2018-11-16 10:19] LABS: Calcium 7.7 mg/dL (8.4-10.2); Potassium 4.6 mmol/L (3.5-5.1); Total Bilirubin 1.3 mg/dL (0.2-1.3)
--- NOTE | 2018-11-16 10:44 | P.PN ---
Subjective Progress Note Date: 11/16/18 Principal diagnosis: intractable abd pain Pt seen today in f/u. She continues to c/o pain, superior to the umbilicus, sharp, radiates to the right quadrant and around her stoma. It is associated with nausea, it is controlled with pain meds only, denies cramping, bleeding. Her nausea and pain are controlled. Objective - Vital Signs Vital signs: Vital Signs Temp 99.3 F 11/16/18 05:00 Pulse 68 11/16/18 08:35 Resp 16 11/16/18 08:35 BP 101/52 11/16/18 05:00 Pulse Ox 93 L 11/16/18 05:00 Intake & Output 11/15/18 11/16/18 11/16/18 18:59 06:59 18:59 Intake Total 540 Balance 540 Intake: Oral 540 Other: Voiding Method Toilet Toilet Toilet # Voids 1 # Bowel Movements 3 3 - Constitutional General appearance: Present: cooperative, morbidly obese - EENT Eyes: Present: anicteric sclerae, EOMI - Respiratory Respiratory: bilateral: CTA - Cardiovascular Heart sounds: normal: S1, S2 - Gastrointestinal Gastrointestinal Comment(s): LUQ nodule palpated, feels subcutaneous, no masses palpated, no hepatomegaly, no pain in the RUQ, the periumbilical area is firm, not rigid, warm, no mass palpated General gastrointestinal: Present: normal bowel sounds, soft - Integumentary Integumentary: Present: normal - Neurologic Neurologic: Present: CNII-XII intact - Musculoskeletal Musculoskeletal: Present: generalized weakness - Psychiatric Psychiatric: Present: A&O x's 3, appropriate affect, intact judgment & insight - Labs CBC & Chem 7: 11/16/18 09:31 11/16/18 09:31 Labs: Abnormal Lab Results - Last 24 Hours (Table) 11/15/18 11/15/18 11/15/18 Range/Units 11:45 17:10 19:51 WBC (3.8-10.6) k/uL RBC (3.80-5.40) m/uL Hgb (11.4-16.0) gm/dL Hct (34.0-46.0) % RDW (11.5-15.5) % Plt Count (150-450) k/uL Lymphocytes # (1.0-4.8) k/uL Sodium (137-145) mmol/L Chloride (98-107) mmol/L Glucose (74-99) mg/dL POC Glucose (mg/dL) 149 H 219 H 182 H (75-99) mg/dL Calcium (8.4-10.2) mg/dL Alkaline Phosphatase (38-126) U/L Total Protein (6.3-8.2) g/dL Albumin (3.5-5.0) g/dL 11/16/18 11/16/18 11/16/18 Range/Units 06:53 09:31 09:31 WBC 2.6 L (3.8-10.6) k/uL RBC 2.82 L (3.80-5.40) m/uL Hgb 8.5 L (11.4-16.0) gm/dL Hct 27.1 L (34.0-46.0) % RDW 17.3 H (11.5-15.5) % Plt Count 80 L (150-450) k/uL Lymphocytes # 0.9 L (1.0-4.8) k/uL Sodium 135 L (137-145) mmol/L Chloride 111 H (98-107) mmol/L Glucose 179 H (74-99) mg/dL POC Glucose (mg/dL) 159 H (75-99) mg/dL Calcium 7.7 L (8.4-10.2) mg/dL Alkaline Phosphatase 177 H (38-126) U/L Total Protein 5.0 L (6.3-8.2) g/dL Albumin 2.0 L (3.5-5.0) g/dL - Imaging and Cardiology CT scan - abdomen: report reviewed US - abdomen: report reviewed Assessment and Plan (1) Abdominal pain Narrative/Plan: It is unclear the underlying cause of pt abd pain. Her AFP was normal in Dec, CT AP did not discuss any notable increase in disease burden in the liver or metastatic disease. 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 There is ascites noted so, pt will be scheduled for paracentesis. Recommended GI consultation as pt pain c/o are not necessarily consistent with HCC. Current Visit: Yes Status: Acute Priority: High Code(s): R10.9 - UNSPECIFIED ABDOMINAL PAIN SNOMED Code(s): 99856401 (2) Nausea with vomiting, unspecified Narrative/Plan: Secondary to abd pain per pt. Currently managed with pain meds and antiemetics Current Visit: Yes Status: Acute Priority: High Code(s): R11.2 - NAUSEA WITH VOMITING, UNSPECIFIED SNOMED Code(s): 43281669 (3) Hepatocellular carcinoma Narrative/Plan: Pt has not been seen in the office by an Oncologist yet. She was encouraged to keep her appts as treatment will not be considered until she establishes care with a Physician. We will also not provide more then 3 days of pain medications until a Physician/Patient relationship is established. Current Visit: No Status: Chronic Priority: Medium Code(s): C22.0 - LIVER CELL CARCINOMA SNOMED Code(s): 030690603
[2018-11-16] MEDS ORDERED: MORPHINE CONC SOLN 10mg/0.5mL ORAL SYRG PO PRN (11:00)
[2018-11-16] MEDS ORDERED: MORPHINE ORAL SOLN 10 MG/5 ML CUP PO SCH (11:00)
--- NOTE | 2018-11-16 11:35 | P.PN ---
Subjective Progress Note Date: 11/16/18 11/14/2018 this patient has a history of hepatocellular carcinoma. She presented to the hospital with intractable abdominal pain. Is followed closely by oncology. They have increased her MS Contin to 15 mg by mouth every 8 hours as well as she is getting IV morphine. Oncology has ordered abdominal ultrasound which is showing a moderate amount of ascites. White count has improved from 2.9-4.6 hemoglobin 9.5 up to 11 and platelets 90 06/15/2019. Awaiting further oncology recommendations regarding a possible paracentesis as well as further pain control. Per ID patient needs no further antibiotic coverage she completed oral Vanco treatment for MRSA in the colon. He also ruled out for UTI. A1c 7.1. Patient still reporting abdominal pain. However, MS Contin frequency change has helped. She denies any chest pain or shortness of breath. Denies any nausea or vomiting. Reports having regular bowel movements. Denies any difficulty with urinating. On 11/15/2018 patient is currently resting comfortably in bed. Potassium elevated at 5.5. Will order 1 dose of Kayexalate and put patient on Lopressor potassium diet. Patient denies chest pain or shortness of breath. Patient denies nausea vomiting or diarrhea. Patient denies any urinary burning or frequency. Awaiting oncology recommendation for possible paracentesis. On 11/16/2018 patient is currently resting bed. Patient still complaining of abdominal discomfort. Oncology service is currently at bedside recommending possible GI consult for further investigation with EGD or colonoscopy. Potassium improved to 4.6. At this time patient denies chest pain or shortness breath. Patient denies nausea vomiting or diarrhea. Patient denies any urinary burning or frequency Objective - Vital Signs Vital signs: Vital Signs Temp 99.3 F 11/16/18 05:00 Pulse 68 11/16/18 08:35 Resp 16 11/16/18 08:35 BP 101/52 11/16/18 05:00 Pulse Ox 93 L 11/16/18 05:00 Intake & Output 11/15/18 11/16/18 11/16/18 18:59 06:59 18:59 Intake Total 540 Balance 540 Intake: Oral 540 Other: Voiding Method Toilet Toilet Toilet # Voids 1 # Bowel Movements 3 3 - Exam Head normocephalic Neck supple Lungs clear to auscultation bilaterally no wheezing or crackles Heart regular rate and rhythm S1-S2, no rub or gallop Abdomen is soft right upper quadrant tenderness nondistended positive bowel sounds no hepatosplenomegaly Extremities no edema Neuro alert and orientated to 3 - Labs CBC & Chem 7: 11/16/18 09:31 11/16/18 09:31 Labs: Abnormal Lab Results - Last 24 Hours (Table) 11/15/18 11/15/18 11/15/18 Range/Units 11:45 17:10 19:51 WBC (3.8-10.6) k/uL RBC (3.80-5.40) m/uL Hgb (11.4-16.0) gm/dL Hct (34.0-46.0) % RDW (11.5-15.5) % Plt Count (150-450) k/uL Lymphocytes # (1.0-4.8) k/uL Sodium (137-145) mmol/L Chloride (98-107) mmol/L Glucose (74-99) mg/dL POC Glucose (mg/dL) 149 H 219 H 182 H (75-99) mg/dL Calcium (8.4-10.2) mg/dL Alkaline Phosphatase (38-126) U/L Total Protein (6.3-8.2) g/dL Albumin (3.5-5.0) g/dL 11/16/18 11/16/18 11/16/18 Range/Units 06:53 09:31 09:31 WBC 2.6 L (3.8-10.6) k/uL RBC 2.82 L (3.80-5.40) m/uL Hgb 8.5 L (11.4-16.0) gm/dL Hct 27.1 L (34.0-46.0) % RDW 17.3 H (11.5-15.5) % Plt Count 80 L (150-450) k/uL Lymphocytes # 0.9 L (1.0-4.8) k/uL Sodium 135 L (137-145) mmol/L Chloride 111 H (98-107) mmol/L Glucose 179 H (74-99) mg/dL POC Glucose (mg/dL) 159 H (75-99) mg/dL Calcium 7.7 L (8.4-10.2) mg/dL Alkaline Phosphatase 177 H (38-126) U/L Total Protein 5.0 L (6.3-8.2) g/dL Albumin 2.0 L (3.5-5.0) g/dL Assessment and Plan Assessment: 1. Hepatocellular carcinoma with moderate ascites noted on ultrasound. Await oncology further recommendations. Continue with MS Contin 15 mg by mouth every 8 hours and IV morphine as needed for pain control. Await further recommendations per oncology. Patient has required paracentesis in the past. Awaiting oncology recommendations regarding oral cancer therapy 2. Colonization with MRSA. Patient treated with oral vancomycin. Per ID no further active infection. Continue the cholestyramine to maintain stool consistency. 3. Nonalcoholic liver cirrhosis. Abdominal ultrasound completed showing moderate abdominal ascites likely on basis process. Awaiting pathology recognition for possible paracentesis 4. Diverticulitis with history of bowel perforation and ileostomy placement 5. Leukopenia likely related to her recent acute infections and underlying liver disease 6. Thrombocytopenia chronic. Secondary to underlying liver cirrhosis 7. Chronic Normocytic anemia secondary to liver cirrhosis and malignancy. Oncology following 8. Hyperkalemia. Potassium 5.5. Will give 1 dose kayexlate ordered recheck potassium today. We'll also place patient on low potassium diet. potassium 4.7. 9. Increased abdominal pain with nausea. Oncology service is at bedside recommending GI consult for possible EGD and colonoscopy for further investigation GI prophylaxis Protonix and DVT prophylaxis SCDs due to thrombocytopenia I performed an examination of the patient and discussed their management with the Nurse Practitioner. I have reviewed the Nurse Practitioner's notes and agree with the documented findings and plan of care Meds have been adjusted per oncology services.
[2018-11-16 11:47] LABS: Glucose,Whole Blood 207 mg/dL (75-99)
[2018-11-16] MEDS: CHOLESTYRAMINE (WITH SUGAR) 4 GM PACKET PO SCH ×3 (13:21→17:18)
[2018-11-16] MEDS: MORPHINE CONC SOLN 10mg/0.5mL ORAL SYRG PO PRN ×2 (14:03→19:26)
[2018-11-16 17:13] LABS: Glucose,Whole Blood 91 mg/dL (75-99)
[2018-11-16 20:15] LABS: Glucose,Whole Blood 212 mg/dL (75-99)
[2018-11-17] MEDS: MORPHINE SULFATE ER 15 MG TABLET PO SCH ×3 (05:17→21:20)
[2018-11-17 06:59] LABS: Glucose,Whole Blood 139 mg/dL (75-99)
[2018-11-17] MEDS: MORPHINE CONC SOLN 10mg/0.5mL ORAL SYRG PO PRN ×3 (07:43→19:34)
[2018-11-17] MEDS: clonazePAM 0.5 MG TAB PO SCH (09:13)
[2018-11-17] MEDS: PANTOPRAZOLE 40 MG TABLET PO SCH (09:13)
[2018-11-17] MEDS: NYSTATIN 100,000 UNIT/ML SUSP 500,000 UNIT/5 ML CUP PO SCH ×4 (09:14→21:20)
[2018-11-17] MEDS: FUROSEMIDE 40 MG TAB PO SCH (09:14)
[2018-11-17] MEDS: MAGNESIUM OXIDE 400 MG TAB PO SCH (09:14)
[2018-11-17] MEDS: METOPROLOL TARTRATE 12.5 MG TAB PO SCH (09:14)
[2018-11-17] MEDS: DICYCLOMINE 10 MG CAP PO SCH ×3 (09:14→21:20)
[2018-11-17] MEDS: SUCRALFATE 1 GM TAB PO SCH ×4 (09:15→21:20)
[2018-11-17] MEDS: CHOLESTYRAMINE (WITH SUGAR) 4 GM PACKET PO SCH ×3 (09:16→17:48)
[2018-11-17] MEDS: INSULIN ASPART 100 UNIT/ML 1 ML 10 ML VIAL SQ SCH ×4 (09:16→21:19)
[2018-11-17 09:28] LABS: Anisocytosis Slight; Basophils % (A) 1 %; Eosinophils # (A) 0.2 k/uL (0-0.7); Eosinophils % (A) 6 %; HCT 34.1 % (34.0-46.0); HGB 10.4 gm/dL (11.4-16.0); Hypochromasia Marked; Lymphocytes # (A) 1.2 k/uL (1.0-4.8); Lymphocytes % (A) 33 %; MCH 29.7 pg (25.0-35.0); MCHC 30.5 g/dL (31.0-37.0); MCV 97.3 fL (80.0-100.0); Macrocytosis Slight; Mean Platelet Volume 8.8; Monocytes # (A) 0.3 k/uL (0-1.0); Monocytes % (A) 7 %; Neutrophils # (A) 1.8 k/uL (1.3-7.7); Neutrophils % (A) 49 %; Platelet Count 100 k/uL (150-450); RBC 3.51 m/uL (3.80-5.40); RDW 17.1 % (11.5-15.5); WBC 3.6 k/uL (3.8-10.6)
[2018-11-17 09:31] LABS: Albumin 2.5 g/dL (3.5-5.0); Calcium 8.1 mg/dL (8.4-10.2); Potassium 4.2 mmol/L (3.5-5.1); Total Bilirubin 1.6 mg/dL (0.2-1.3); Total Protein 6.2 g/dL (6.3-8.2)
--- NOTE | 2018-11-17 10:25 | P.CONS ---
History of Present Illness - Reason for Consult Consult date: 11/17/18 abdominal pain nausea Requesting physician: Artemio Lea - Chief Complaint abdominal pain - History of Present Illness 73-year-old female with a history of hepatocellular carcinoma 2013 with chemo embolization tumor resection, perforated diverticular disease with ostomy, parastomal hernia, nonalcoholic liver cirrhosis, ascites/paracentesis, portal hypertension, diabetes, depression, chronic pain, cholecystectomy admitted with abdominal pain nausea vomiting. Pain is centered mostly around her stoma however CT of the abdomen and pelvis reported no abnormalities of the stoma or bowel, no bowel obstruction, small lobulated liver consistent with history of cirrhosis, small hyperdense lesion left hepatic lobe as well as right hepatic lobe with surrounding ascites moderate in degree. Ultrasound demonstrated ascites. Stoma is functioning viable. Recent liver biopsy August 2018 at [facility] of the right hepatic lobe resulted in a well-differentiated hepatocellular carcinoma and a new 4.3 cm right hepatic mass status post chemo embolization. Denies fever chills weight loss hematemesis hematochezia or melena. Last paracentesis 11/02/2018 1.4 L removed cytology negative. Presently white count 3.6. Hemoglobin 10.4. Platelet 100,000. INR 1.5. Review of Systems Constitutional: Denies fever, chills, sweats, weight gain, or loss. HEENT: Negative for migraines, blurred vision or loss, earaches, drainage, tinnitus, oral mucosal lesions, dysphagia, or odynophagia. CARDIAC: Negative for chest pain, arrhythmias, or palpitation. RESPIRATORY: Negative for shortness of breath, hemoptysis, cough, or sputum production. GI: See HPI for pertinent findings. : Negative for hematuria, urgency, frequency, polyuria, or dysuria. GYNc: Negative vaginal discharge. MUSCULOSKELETAL: Negative for muscle aches, swelling, arthritis, and arthralgias. NEUROLOGIC: Negative for stroke or TIA. ENDOCRINE: Negative for thyroid problems. SKIN: Negative for rash or itching. PSYCHIATRIC: Negative history for depression and anxiety Past Medical History Past Medical History: Cancer, Diabetes Mellitus, Hypertension, Liver Disease Additional Past Medical History / Comment(s): liver ca- had chemo 10-03-18,past ascities-paracentesis, ( ulcer(sx),diveticulitis anx/depression History of Any Multi-Drug Resistant Organisms: MRSA Year Discovered:: 10/23/18 MDRO Source:: MRSA STOOL Past Surgical History: Appendectomy, Bowel Resection, Section, Cholecystectomy, Hysterectomy, Tonsillectomy Additional Past Surgical History / Comment(s): rt rotator cuff repair,carpal tunnel release .liver bx,ilieostomy ,11-02-18 had paracentesis. Multiple chemo embolizations of liver tumors Past Anesthesia/Blood Transfusion Reactions: No Reported Reaction Additional Psychological History / Comment(s): Reformed smoker. . Retired. No experience. No animal exposures Smoking Status: Former smoker - Past Family History Mother History Unknown: Yes Family Medical History: Congestive Heart Failure (CHF) Medications and Allergies Home Medications Medication Instructions Recorded Confirmed Type Dicyclomine [Bentyl] 10 mg PO TID 10/23/18 11/11/18 History Furosemide [Lasix] 40 mg PO DAILY 10/23/18 11/11/18 History Omeprazole [PriLOSEC] 20 mg PO BID 10/23/18 11/11/18 History Sucralfate [Carafate] 1 gm PO QID 10/23/18 11/11/18 History Aspirin EC [Ecotrin Low Dose] 81 mg PO DAILY 10/24/18 11/11/18 History Insulin NPH Human Isophane 18 unit SQ BID 10/24/18 11/11/18 History [NovoLIN N] Insulin Regular, Human [NovoLIN R] 8 unit SQ AC-TID 10/24/18 11/11/18 History Magnesium 200 mg PO DAILY 10/24/18 11/11/18 History Metoprolol Tartrate 12.5 mg PO DAILY 10/24/18 11/11/18 History Morphine Sulfate ER [Ms Contin] 15 mg PO Q12HR 10/24/18 11/11/18 History Ondansetron [Zofran ODT] 8 mg PO Q8HR 10/24/18 11/11/18 History Nystatin 100,000 Unit/ml Susp 500,000 unit PO QID #12 cup 11/03/18 11/11/18 Rx [Mycostatin Oral Susp] Vancomycin HCl [Vancocin HCl] 250 mg PO Q6HR 7 Days #28 capsule 11/03/18 Rx clonazePAM [KlonoPIN] 0.5 mg PO DAILY tab 11/03/18 11/11/18 Rx Cholestyramine (with Sugar) 4 gm PO TID #21 packet 11/04/18 11/11/18 Rx [Questran] Allergies Allergy/AdvReac Type Severity Reaction Status Date / Time GREG Inhibitors Allergy Cough Verified 11/11/18 13:18 amlodipine Allergy Rash/Hives Verified 11/11/18 13:18 oxycodone Allergy Rash/Hives Verified 11/11/18 13:18 Penicillins Allergy Rash/Hives Verified 11/11/18 13:18 hydromorphone [From Dilaudid] AdvReac Unknown Verified 11/11/18 13:18 sodium dodecyclbenzene Allergy Rash/Hives Uncoded 11/11/18 13:05 sulfonate Physical Exam Vitals: Vital Signs Temp Pulse Resp BP Pulse Ox 11/16/18 21:00 98.8 F 63 16 98/60 99 11/16/18 16:00 61 16 11/16/18 13:00 98 F 61 16 97/54 98 Intake and Output 11/16/18 11/17/18 11/17/18 22:59 06:59 14:59 Intake Total 880 540 Balance 880 540 Intake: Oral 880 540 Other: Voiding Method Toilet Toilet # Voids 2 2 # Bowel Movements 2 2 General appearance: The patient is alert, oriented, in no acute distress. HET: Head is normocephalic and atraumatic. Pupils are equal and reactive. Oropharynx is clear without lesions. Neck: Supple without lymphadenopathy. Trachea midline. Heart: S1 S2. Regular rate and rhythm. Lungs: No crackles or wheezes are heard. Abdomen: Soft, mild tenderness around the stoma with mild peristomal hernia present soft, stoma viable stool Samuel bag with mild ascites with bowel sounds. No peritoneal signs. No palpable organomegaly or masses. Extremities: Normal skin color and turgor. No cyanosis, rash, ulceration, clubbing, or edema. Radial and pedal pulses are 2/4 bilaterally. Neurological: No focal deficits. Strength and sensation are grossly intact. Results CBC & Chem 7: 11/17/18 08:20 11/17/18 08:20 Labs: Abnormal Lab Results - Last 24 Hours (Table) 11/16/18 11/16/18 11/17/18 Range/Units 11:45 20:10 06:58 WBC (3.8-10.6) k/uL RBC (3.80-5.40) m/uL Hgb (11.4-16.0) gm/dL MCHC (31.0-37.0) g/dL RDW (11.5-15.5) % Plt Count (150-450) k/uL Sodium (137-145) mmol/L Chloride (98-107) mmol/L Carbon Dioxide (22-30) mmol/L Glucose (74-99) mg/dL POC Glucose (mg/dL) 207 H 212 H 139 H (75-99) mg/dL Calcium (8.4-10.2) mg/dL Total Bilirubin (0.2-1.3) mg/dL AST (14-36) U/L Alkaline Phosphatase (38-126) U/L Total Protein (6.3-8.2) g/dL Albumin (3.5-5.0) g/dL 11/17/18 11/17/18 Range/Units 08:20 08:20 WBC 3.6 L (3.8-10.6) k/uL RBC 3.51 L (3.80-5.40) m/uL Hgb 10.4 L (11.4-16.0) gm/dL MCHC 30.5 L (31.0-37.0) g/dL RDW 17.1 H (11.5-15.5) % Plt Count 100 L (150-450) k/uL Sodium 136 L (137-145) mmol/L Chloride 110 H (98-107) mmol/L Carbon Dioxide 20 L (22-30) mmol/L Glucose 127 H (74-99) mg/dL POC Glucose (mg/dL) (75-99) mg/dL Calcium 8.1 L (8.4-10.2) mg/dL Total Bilirubin 1.6 H (0.2-1.3) mg/dL AST 39 H (14-36) U/L Alkaline Phosphatase 229 H (38-126) U/L Total Protein 6.2 L (6.3-8.2) g/dL Albumin 2.5 L (3.5-5.0) g/dL CT scan - abdomen: report reviewed (Dr. Francois) US - abdomen: report reviewed (Dr. Francois) Assessment and Plan (1) Abdominal pain Narrative/Plan: 73-year-old female with a history of hepatocellular carcinoma recent liver biopsy as well as chemoembolization admitted with intractable nausea vomiting parastomal hernia discomfort. CT reported no obvious bowel abnormalities or obstruction. Moderate ascites underlying liver cirrhosis portal hypertension consistent with reported history. Etiology of abdominal pain is unclear. Current Visit: Yes Status: Acute Code(s): R10.9 - UNSPECIFIED ABDOMINAL PAIN SNOMED Code(s): 93219080 (2) Nausea with vomiting, unspecified Current Visit: Yes Status: Acute Priority: High Code(s): R11.2 - NAUSEA WITH VOMITING, UNSPECIFIED SNOMED Code(s): 38631957 (3) Peristomal hernia Current Visit: Yes Status: Acute Code(s): K46.9 - UNSPECIFIED ABDOMINAL HERNIA WITHOUT OBSTRUCTION OR GANGRENE SNOMED Code(s): 43475282 (4) History of liver cancer Current Visit: Yes Status: Acute Code(s): Z85.05 - PERSONAL HISTORY OF MALIGNANT NEOPLASM OF LIVER SNOMED Code(s): 447643511 (5) Ascites Current Visit: No Status: Acute Code(s): R18.8 - OTHER ASCITES SNOMED Code (s): 608556128 Plan: 1. US abdomen evaluate ascites. Possible paracentesis. 2. Symptomatic care. Oncology consulted and following. 3. Inpatient endoscopic exams not planned at this time. 4. Consideration for general surgical consult is parastomal tenderness does not improve. Thank you for this kind referral and the opportunity to participate in the care of your patient. This consultation was discussed with Dr. Francois. The impression and plan of care have been directed as dictated.
--- NOTE | 2018-11-17 11:08 | P.PN ---
Subjective Progress Note Date: 11/17/18 11/14/2018 this patient has a history of hepatocellular carcinoma. She presented to the hospital with intractable abdominal pain. Is followed closely by oncology. They have increased her MS Contin to 15 mg by mouth every 8 hours as well as she is getting IV morphine. Oncology has ordered abdominal ultrasound which is showing a moderate amount of ascites. White count has improved from 2.9-4.6 hemoglobin 9.5 up to 11 and platelets 90 06/15/2019. Awaiting further oncology recommendations regarding a possible paracentesis as well as further pain control. Per ID patient needs no further antibiotic coverage she completed oral Vanco treatment for MRSA in the colon. He also ruled out for UTI. A1c 7.1. Patient still reporting abdominal pain. However, MS Contin frequency change has helped. She denies any chest pain or shortness of breath. Denies any nausea or vomiting. Reports having regular bowel movements. Denies any difficulty with urinating. On 11/15/2018 patient is currently resting comfortably in bed. Potassium elevated at 5.5. Will order 1 dose of Kayexalate and put patient on Lopressor potassium diet. Patient denies chest pain or shortness of breath. Patient denies nausea vomiting or diarrhea. Patient denies any urinary burning or frequency. Awaiting oncology recommendation for possible paracentesis. On 11/16/2018 patient is currently resting bed. Patient still complaining of abdominal discomfort. Oncology service is currently at bedside recommending possible GI consult for further investigation with EGD or colonoscopy. Potassium improved to 4.6. At this time patient denies chest pain or shortness breath. Patient denies nausea vomiting or diarrhea. Patient denies any urinary burning or frequency On 11/17/2018 patient is alert and oriented 3 resting comfortably in bed. Patient still complaining of some abdominal pain around the stoma site. GI services have been consulted. Pain adequately controlled at this time. This time patient denies chest pain or shortness of breath. Patient denies nausea vomiting or diarrhea. Patient denies any urinary burning or frequency. Objective - Vital Signs Vital signs: Vital Signs Temp 98.8 F 11/16/18 21:00 Pulse 63 11/16/18 21:00 Resp 16 11/16/18 21:00 BP 98/60 11/16/18 21:00 Pulse Ox 99 11/16/18 21:00 Intake & Output 11/16/18 11/17/18 11/17/18 18:59 06:59 18:59 Intake Total 240 1420 Output Total 2 Balance 238 1420 Intake: Oral 240 1420 Output: Urine 2 Other: Voiding Method Toilet Toilet # Voids 3 2 # Bowel Movements 1 2 - Exam Head normocephalic Neck supple Lungs clear to auscultation bilaterally no wheezing or crackles Heart regular rate and rhythm S1-S2, no rub or gallop Abdomen is soft right upper quadrant tenderness nondistended positive bowel sounds no hepatosplenomegaly Extremities no edema Neuro alert and orientated to 3 - Labs CBC & Chem 7: 11/17/18 08:20 11/17/18 08:20 Labs: Abnormal Lab Results - Last 24 Hours (Table) 11/16/18 11/16/18 11/17/18 Range/Units 11:45 20:10 06:58 WBC (3.8-10.6) k/uL RBC (3.80-5.40) m/uL Hgb (11.4-16.0) gm/dL MCHC (31.0-37.0) g/dL RDW (11.5-15.5) % Plt Count (150-450) k/uL Sodium (137-145) mmol/L Chloride (98-107) mmol/L Carbon Dioxide (22-30) mmol/L Glucose (74-99) mg/dL POC Glucose (mg/dL) 207 H 212 H 139 H (75-99) mg/dL Calcium (8.4-10.2) mg/dL Total Bilirubin (0.2-1.3) mg/dL AST (14-36) U/L Alkaline Phosphatase (38-126) U/L Total Protein (6.3-8.2) g/dL Albumin (3.5-5.0) g/dL 11/17/18 11/17/18 Range/Units 08:20 08:20 WBC 3.6 L (3.8-10.6) k/uL RBC 3.51 L (3.80-5.40) m/uL Hgb 10.4 L (11.4-16.0) gm/dL MCHC 30.5 L (31.0-37.0) g/dL RDW 17.1 H (11.5-15.5) % Plt Count 100 L (150-450) k/uL Sodium 136 L (137-145) mmol/L Chloride 110 H (98-107) mmol/L Carbon Dioxide 20 L (22-30) mmol/L Glucose 127 H (74-99) mg/dL POC Glucose (mg/dL) (75-99) mg/dL Calcium 8.1 L (8.4-10.2) mg/dL Total Bilirubin 1.6 H (0.2-1.3) mg/dL AST 39 H (14-36) U/L Alkaline Phosphatase 229 H (38-126) U/L Total Protein 6.2 L (6.3-8.2) g/dL Albumin 2.5 L (3.5-5.0) g/dL Assessment and Plan Assessment: 1. Hepatocellular carcinoma with moderate ascites noted on ultrasound. Await oncology further recommendations. Continue with MS Contin 15 mg by mouth every 8 hours and IV morphine as needed for pain control. Await further recommendations per oncology. Patient has required paracentesis in the past. Awaiting oncology recommendations regarding oral cancer therapy 2. Colonization with MRSA. Patient treated with oral vancomycin. Per ID no further active infection. Continue the cholestyramine to maintain stool consistency. 3. Nonalcoholic liver cirrhosis. Abdominal ultrasound completed showing moderate abdominal ascites likely on basis process. Discussed case with oncology services. No paracentesis required at this time. GI consult has been placed for ongoing abdominal pain. 4. Diverticulitis with history of bowel perforation and ileostomy placement. GI services have been consulted 5. Leukopenia likely related to her recent acute infections and underlying liver disease 6. Thrombocytopenia chronic. Secondary to underlying liver cirrhosis 7. Chronic Normocytic anemia secondary to liver cirrhosis and malignancy. Oncology following 8. Hyperkalemia. Potassium 5.5. Will give 1 dose kayexlate ordered recheck potassium today. We'll also place patient on low potassium diet. potassium 4.7. 9. Increased abdominal pain with nausea. Oncology service is at bedside recommending GI consult for possible EGD and colonoscopy for further investigation 10. Diabetes mellitus . Hemoglobin A1c 7.1. Omentum sliding scale added GI prophylaxis Protonix and DVT prophylaxis SCDs due to thrombocytopenia I performed an examination of the patient and discussed their management with the Nurse Practitioner. I have reviewed the Nurse Practitioner's notes and agree with the documented findings and plan of care Pain Meds have been adjusted per oncology services.
[2018-11-17 11:17] LABS: Glucose,Whole Blood 198 mg/dL (75-99)
--- NOTE | 2018-11-17 12:16 | US ---
EXAMINATION TYPE: US abdomen limited DATE OF EXAM: 11/17/2018 COMPARISON: 11/14/2018. CLINICAL HISTORY: assess ascites only for paracentesis. TECHNIQUE/FINDINGS: Limited ultrasound of the abdomen was performed to assess degree of ascites in co mparison to the prior of 11/14/2018. Moderate ascites is seen throughout all 4 quadrants, similar to the prior. IMPRESSION: Degree of ascites is similar to the prior of 11/14/2018 and overall moderate. Again this is likely on the basis of underlying hepatocellular disease/cirrhosis.
[2018-11-17] MEDS ORDERED: INSULIN REGULAR 100 UNIT/ML VIAL SQ SCH (12:30)
--- NOTE | 2018-11-17 17:27 | P.PN ---
Subjective Progress Note Date: 11/17/18 Principal diagnosis: intractable abd pain Pt seen in f/u, pain management is adequate, pending GI evaluation and recommendations. Pt is tolerating oral intake, her stoma output has changed from liquid brown stool to yellow liquid today. Objective - Vital Signs Vital signs: Vital Signs Temp 98.3 F 11/17/18 13:05 Pulse 63 11/17/18 16:00 Resp 20 11/17/18 16:00 BP 107/62 11/17/18 13:05 Pulse Ox 100 11/17/18 13:05 Intake & Output 11/16/18 11/17/18 11/17/18 18:59 06:59 18:59 Intake Total 240 1420 240 Output Total 2 5 Balance 238 1420 235 Intake: Oral 240 1420 240 Output: Urine 2 2 Stool 3 Other: Voiding Method Toilet Toilet Toilet # Voids 3 2 3 # Bowel Movements 1 2 - Constitutional General appearance: Present: cooperative, no acute distress, obese - EENT Eyes: Present: anicteric sclerae, EOMI ENT: Present: hearing grossly normal - Respiratory Respiratory: bilateral: CTA - Cardiovascular Heart sounds: normal: S1, S2 - Peripheral edema leg Peripheral Edema: bilateral: Trace - Gastrointestinal General gastrointestinal: Present: normal bowel sounds, soft, tenderness - Integumentary Integumentary: Present: normal - Neurologic Neurologic: Present: CNII-XII intact - Musculoskeletal Musculoskeletal: Present: generalized weakness, strength equal bilaterally - Psychiatric Psychiatric: Present: A&O x's 3, appropriate affect, intact judgment & insight - Labs CBC & Chem 7: 11/17/18 08:20 11/17/18 08:20 Labs: Abnormal Lab Results - Last 24 Hours (Table) 11/16/18 11/17/18 11/17/18 Range/Units 20:10 06:58 08:20 WBC 3.6 L (3.8-10.6) k/uL RBC 3.51 L (3.80-5.40) m/uL Hgb 10.4 L (11.4-16.0) gm/dL MCHC 30.5 L (31.0-37.0) g/dL RDW 17.1 H (11.5-15.5) % Plt Count 100 L (150-450) k/uL Sodium (137-145) mmol/L Chloride (98-107) mmol/L Carbon Dioxide (22-30) mmol/L Glucose (74-99) mg/dL POC Glucose (mg/dL) 212 H 139 H (75-99) mg/dL Calcium (8.4-10.2) mg/dL Total Bilirubin (0.2-1.3) mg/dL AST (14-36) U/L Alkaline Phosphatase (38-126) U/L Total Protein (6.3-8.2) g/dL Albumin (3.5-5.0) g/dL 11/17/18 11/17/18 Range/Units 08:20 11:15 WBC (3.8-10.6) k/uL RBC (3.80-5.40) m/uL Hgb (11.4-16.0) gm/dL MCHC (31.0-37.0) g/dL RDW (11.5-15.5) % Plt Count (150-450) k/uL Sodium 136 L (137-145) mmol/L Chloride 110 H (98-107) mmol/L Carbon Dioxide 20 L (22-30) mmol/L Glucose 127 H (74-99) mg/dL POC Glucose (mg/dL) 198 H (75-99) mg/dL Calcium 8.1 L (8.4-10.2) mg/dL Total Bilirubin 1.6 H (0.2-1.3) mg/dL AST 39 H (14-36) U/L Alkaline Phosphatase 229 H (38-126) U/L Total Protein 6.2 L (6.3-8.2) g/dL Albumin 2.5 L (3.5-5.0) g/dL Assessment and Plan (1) Abdominal pain Narrative/Plan: Current pain regimen is adequate. It was clearly explained to pt that she will be provided with 3 days of pain meds on DC then she MUST come to the office to establish care-she has never been seen in the office. We can only provide narcotics when we have a patient/provider relationship. She verbalized understanding. Cont current pain medications as prescribed. Current Visit: Yes Status: Acute Priority: High Code(s): R10.9 - UNSPECIFIED ABDOMINAL PAIN SNOMED Code(s): 09282211 (2) Nausea with vomiting, unspecified Narrative/Plan: Managed Current Visit: Yes Status: Acute Priority: High Code(s): R11.2 - NAUSEA WITH VOMITING, UNSPECIFIED SNOMED Code(s): 40954266 (3) Hepatocellular carcinoma Narrative/Plan: Pt disease has been rather well controlled with chemo-embolization treatments. She had CT AP 10/22 with descriptions of a 4cm, 2.5cm and a 3.5cm lesions, repeat CT AP 11/11 was without contrast but compared with no significant changes noted. Pt has had 2 US of the abd both showing ascites, she has paracentesis on 11/02 with 1/4L of fluid removed, negative cytology. Her AFP was <2.5 on 10/24, though this truly has no bearing on extent of disease. Pt wanted to transition care but has not made any appts due to recurrent hospitalizations for abd pain. Her pain is not consistent with what is showing work up. Await GI eval. Pt encouraged to keep appt in the office so that she can begin treatment for HCC. I advised her also that she should keep in contact with the Physicians who have been doing her chemo-embolization treatments. Current Visit: No Status: Chronic Priority: Medium Code(s): C22.0 - LIVER CELL CARCINOMA SNOMED Code(s): 166296765
[2018-11-17 17:35] LABS: Glucose,Whole Blood 145 mg/dL (75-99)
[2018-11-17 20:35] LABS: Glucose,Whole Blood 206 mg/dL (75-99)
[2018-11-17] MEDS: INSULIN NPH 300 UNIT/3 ML VIAL SQ SCH (21:19)
[2018-11-18] MEDS: MORPHINE CONC SOLN 10mg/0.5mL ORAL SYRG PO PRN ×4 (04:07→23:43)
[2018-11-18] MEDS: MORPHINE SULFATE ER 15 MG TABLET PO SCH ×3 (06:05→21:15)
[2018-11-18 07:05] LABS: Glucose,Whole Blood 145 mg/dL (75-99)
[2018-11-18] MEDS: INSULIN NPH 300 UNIT/3 ML VIAL SQ SCH ×2 (07:37→21:23)
[2018-11-18] MEDS: INSULIN ASPART 100 UNIT/ML 1 ML 10 ML VIAL SQ SCH ×5 (07:38→21:11)
[2018-11-18] MEDS: PANTOPRAZOLE 40 MG TABLET PO SCH (07:39)
[2018-11-18] MEDS: clonazePAM 0.5 MG TAB PO SCH (07:40)
[2018-11-18] MEDS: DICYCLOMINE 10 MG CAP PO SCH ×3 (07:41→21:15)
[2018-11-18] MEDS: MAGNESIUM OXIDE 400 MG TAB PO SCH (07:41)
[2018-11-18] MEDS: FUROSEMIDE 40 MG TAB PO SCH (07:41)
[2018-11-18] MEDS: METOPROLOL TARTRATE 12.5 MG TAB PO SCH (07:42)
[2018-11-18] MEDS: SUCRALFATE 1 GM TAB PO SCH ×4 (07:42→21:23)
[2018-11-18] MEDS: CHOLESTYRAMINE (WITH SUGAR) 4 GM PACKET PO SCH ×3 (07:43→18:02)
[2018-11-18] MEDS: NYSTATIN 100,000 UNIT/ML SUSP 500,000 UNIT/5 ML CUP PO SCH ×4 (07:43→21:15)
--- NOTE | 2018-11-18 08:40 | P.PN ---
Subjective Progress Note Date: 11/18/18 Principal diagnosis: Abdominal pain nausea vomiting history of liver carcinoma No nausea vomiting. Still reports tenderness around abdominal stoma/colostomy. Afebrile. Ultrasound is reported moderate ascites unchanged from previous exam. Receiving diuretics. Objective - Vital Signs Vital signs: Vital Signs Temp 98.8 F 11/18/18 05:00 Pulse 62 11/18/18 05:00 Resp 16 11/18/18 05:00 BP 102/57 11/18/18 05:00 Pulse Ox 98 11/18/18 05:00 Intake & Output 11/17/18 11/18/18 11/18/18 18:59 06:59 18:59 Intake Total 240 780 Output Total 5 Balance 235 780 Intake: Oral 240 780 Output: Urine 2 Stool 3 Other: Voiding Method Toilet Toilet # Voids 3 2 # Bowel Movements 2 - Exam General appearance: The patient is alert, oriented, in no acute distress. HET: Head is normocephalic and atraumatic. Pupils are equal and reactive. Oropharynx is clear without lesions. Neck: Supple without lymphadenopathy. Trachea midline. Heart: S1 S2. Regular rate and rhythm. Lungs: No crackles or wheezes are heard. Abdomen: Soft, mild tenderness around stoma. Stoma viable. Stool air in bed. Soft tissue mild bulge around stoma possible parastomal hernia., nondistended with bowel sounds. No peritoneal signs. No palpable organomegaly or masses. Extremities: Normal skin color and turgor. No cyanosis, rash, ulceration, clubbing, or edema. Radial and pedal pulses are 2/4 bilaterally. Neurological: No focal deficits. Strength and sensation are grossly intact. - Labs CBC & Chem 7: 11/17/18 08:20 11/17/18 08:20 Labs: Abnormal Lab Results - Last 24 Hours (Table) 11/17/18 11/17/18 11/17/18 Range/Units 08:20 08:20 11:15 WBC 3.6 L (3.8-10.6) k/uL RBC 3.51 L (3.80-5.40) m/uL Hgb 10.4 L (11.4-16.0) gm/dL MCHC 30.5 L (31.0-37.0) g/dL RDW 17.1 H (11.5-15.5) % Plt Count 100 L (150-450) k/uL Sodium 136 L (137-145) mmol/L Chloride 110 H (98-107) mmol/L Carbon Dioxide 20 L (22-30) mmol/L Glucose 127 H (74-99) mg/dL POC Glucose (mg/dL) 198 H (75-99) mg/dL Calcium 8.1 L (8.4-10.2) mg/dL Total Bilirubin 1.6 H (0.2-1.3) mg/dL AST 39 H (14-36) U/L Alkaline Phosphatase 229 H (38-126) U/L Total Protein 6.2 L (6.3-8.2) g/dL Albumin 2.5 L (3.5-5.0) g/dL 11/17/18 11/17/18 11/18/18 Range/Units 17:34 20:33 07:03 WBC (3.8-10.6) k/uL RBC (3.80-5.40) m/uL Hgb (11.4-16.0) gm/dL MCHC (31.0-37.0) g/dL RDW (11.5-15.5) % Plt Count (150-450) k/uL Sodium (137-145) mmol/L Chloride (98-107) mmol/L Carbon Dioxide (22-30) mmol/L Glucose (74-99) mg/dL POC Glucose (mg/dL) 145 H 206 H 145 H (75-99) mg/dL Calcium (8.4-10.2) mg/dL Total Bilirubin (0.2-1.3) mg/dL AST (14-36) U/L Alkaline Phosphatase (38-126) U/L Total Protein (6.3-8.2) g/dL Albumin (3.5-5.0) g/dL Assessment and Plan (1) Abdominal pain Narrative/Plan: 73-year-old female with a history of hepatocellular carcinoma recent liver biopsy as well as chemoembolization admitted with intractable nausea vomiting parastomal hernia discomfort. CT reported no obvious bowel abnormalities or obstruction. Moderate ascites underlying liver cirrhosis portal hypertension consistent with reported history. Etiology of abdominal pain is unclear. Current Visit: Yes Status: Acute Code(s): R10.9 - UNSPECIFIED ABDOMINAL PAIN SNOMED Code(s): 68228083 (2) Nausea with vomiting, unspecified Current Visit: Yes Status: Acute Priority: High Code(s): R11.2 - NAUSEA WITH VOMITING, UNSPECIFIED SNOMED Code(s): 77768082 (3) Peristomal hernia Current Visit: Yes Status: Acute Code(s): K46.9 - UNSPECIFIED ABDOMINAL HERNIA WITHOUT OBSTRUCTION OR GANGRENE SNOMED Code(s): 21785223 (4) History of liver cancer Current Visit: Yes Status: Acute Code(s): Z85.05 - PERSONAL HISTORY OF MALIGNANT NEOPLASM OF LIVER SNOMED Code(s): 841858495 (5) Ascites Current Visit: No Status: Acute Code(s): R18.8 - OTHER ASCITES SNOMED Code (s): 403106396 (6) Thrombocytopenia Current Visit: Yes Status: Chronic Code(s): D69.6 - THROMBOCYTOPENIA, UNSPECIFIED SNOMED Code(s): 704947383 Plan: 1. US guided paracentesis requested today.. 2. Symptomatic care. Oncology consulted and following. 3. Inpatient endoscopic exams not planned at this time. 4. Consideration for general surgical consult is parastomal tenderness does not improve. Assessment and plan a care discussed with Dr. Francois
[2018-11-18 09:03] LABS: Albumin 2.3 g/dL (3.5-5.0); Calcium 8.1 mg/dL (8.4-10.2); Potassium 4.3 mmol/L (3.5-5.1); Total Bilirubin 1.3 mg/dL (0.2-1.3); Total Protein 5.9 g/dL (6.3-8.2)
[2018-11-18 09:28] LABS: Anisocytosis Slight; Basophils % (A) 1 %; Eosinophils # (A) 0.2 k/uL (0-0.7); Eosinophils % (A) 5 %; HCT 30.2 % (34.0-46.0); HGB 9.4 gm/dL (11.4-16.0); Hypochromasia Moderate; Lymphocytes # (A) 1.2 k/uL (1.0-4.8); Lymphocytes % (A) 34 %; MCH 29.7 pg (25.0-35.0); MCHC 31.2 g/dL (31.0-37.0); MCV 95.2 fL (80.0-100.0); Mean Platelet Volume 8.3; Monocytes # (A) 0.2 k/uL (0-1.0); Monocytes % (A) 7 %; Neutrophils # (A) 1.7 k/uL (1.3-7.7); Neutrophils % (A) 50 %; RBC 3.17 m/uL (3.80-5.40); RDW 17.5 % (11.5-15.5); WBC 3.4 k/uL (3.8-10.6)
--- NOTE | 2018-11-18 10:05 | P.PN ---
Subjective Progress Note Date: 11/18/18 11/14/2018 this patient has a history of hepatocellular carcinoma. She presented to the hospital with intractable abdominal pain. Is followed closely by oncology. They have increased her MS Contin to 15 mg by mouth every 8 hours as well as she is getting IV morphine. Oncology has ordered abdominal ultrasound which is showing a moderate amount of ascites. White count has improved from 2.9-4.6 hemoglobin 9.5 up to 11 and platelets 90 06/15/2019. Awaiting further oncology recommendations regarding a possible paracentesis as well as further pain control. Per ID patient needs no further antibiotic coverage she completed oral Vanco treatment for MRSA in the colon. He also ruled out for UTI. A1c 7.1. Patient still reporting abdominal pain. However, MS Contin frequency change has helped. She denies any chest pain or shortness of breath. Denies any nausea or vomiting. Reports having regular bowel movements. Denies any difficulty with urinating. On 11/15/2018 patient is currently resting comfortably in bed. Potassium elevated at 5.5. Will order 1 dose of Kayexalate and put patient on Lopressor potassium diet. Patient denies chest pain or shortness of breath. Patient denies nausea vomiting or diarrhea. Patient denies any urinary burning or frequency. Awaiting oncology recommendation for possible paracentesis. On 11/16/2018 patient is currently resting bed. Patient still complaining of abdominal discomfort. Oncology service is currently at bedside recommending possible GI consult for further investigation with EGD or colonoscopy. Potassium improved to 4.6. At this time patient denies chest pain or shortness breath. Patient denies nausea vomiting or diarrhea. Patient denies any urinary burning or frequency On 11/17/2018 patient is alert and oriented 3 resting comfortably in bed. Patient still complaining of some abdominal pain around the stoma site. GI services have been consulted. Pain adequately controlled at this time. This time patient denies chest pain or shortness of breath. Patient denies nausea vomiting or diarrhea. Patient denies any urinary burning or frequency. On 11/18/2018 patient is alert and oriented 3. Discussed case with GI services. Possible paracentesis due to increased abdominal pain. No plans for inpatient scope at this time. Patient denies chest pain or shortness of breath. Patient denies nausea vomiting or diarrhea. Patient denies any urinary burning or frequency Objective - Vital Signs Vital signs: Vital Signs Temp 98.8 F 11/18/18 05:00 Pulse 62 11/18/18 05:00 Resp 16 11/18/18 05:00 BP 102/57 11/18/18 05:00 Pulse Ox 98 11/18/18 05:00 Intake & Output 11/17/18 11/18/18 11/18/18 18:59 06:59 18:59 Intake Total 240 780 Output Total 5 Balance 235 780 Intake: Oral 240 780 Output: Urine 2 Stool 3 Other: Voiding Method Toilet Toilet # Voids 3 2 # Bowel Movements 2 - Exam Head normocephalic Neck supple Lungs clear to auscultation bilaterally no wheezing or crackles Heart regular rate and rhythm S1-S2, no rub or gallop Abdomen is soft right upper quadrant tenderness nondistended positive bowel sounds no hepatosplenomegaly Extremities no edema Neuro alert and orientated to 3 - Labs CBC & Chem 7: 11/18/18 08:24 11/18/18 08:24 Labs: Abnormal Lab Results - Last 24 Hours (Table) 11/17/18 11/17/18 11/17/18 Range/Units 11:15 17:34 20:33 WBC (3.8-10.6) k/uL RBC (3.80-5.40) m/uL Hgb (11.4-16.0) gm/dL Hct (34.0-46.0) % RDW (11.5-15.5) % Sodium (137-145) mmol/L Chloride (98-107) mmol/L Carbon Dioxide (22-30) mmol/L Glucose (74-99) mg/dL POC Glucose (mg/dL) 198 H 145 H 206 H (75-99) mg/dL Calcium (8.4-10.2) mg/dL Alkaline Phosphatase (38-126) U/L Total Protein (6.3-8.2) g/dL Albumin (3.5-5.0) g/dL 11/18/18 11/18/18 11/18/18 Range/Units 07:03 08:24 08:24 WBC 3.4 L (3.8-10.6) k/uL RBC 3.17 L (3.80-5.40) m/uL Hgb 9.4 L (11.4-16.0) gm/dL Hct 30.2 L (34.0-46.0) % RDW 17.5 H (11.5-15.5) % Sodium 136 L (137-145) mmol/L Chloride 110 H (98-107) mmol/L Carbon Dioxide 20 L (22-30) mmol/L Glucose 146 H (74-99) mg/dL POC Glucose (mg/dL) 145 H (75-99) mg/dL Calcium 8.1 L (8.4-10.2) mg/dL Alkaline Phosphatase 226 H (38-126) U/L Total Protein 5.9 L (6.3-8.2) g/dL Albumin 2.3 L (3.5-5.0) g/dL Assessment and Plan Assessment: 1. Hepatocellular carcinoma with moderate ascites noted on ultrasound. Await oncology further recommendations. Continue with MS Contin 15 mg by mouth every 8 hours and IV morphine as needed for pain control. Await further recommendations per oncology. Patient has required paracentesis in the past. Per oncology service is recommending GI consult due to pain not consistent with cancer workup. Per oncology patient also advised to follow-up with oncology service to establish patient provider relationship 2. Colonization with MRSA. Patient treated with oral vancomycin. Per ID no further active infection. Continue the cholestyramine to maintain stool consistency. 3. Nonalcoholic liver cirrhosis. Abdominal ultrasound completed showing moderate abdominal ascites likely on basis process. Discussed case with oncology services. No paracentesis required at this time. GI consult has been placed for ongoing abdominal pain. 4. Diverticulitis with history of bowel perforation and ileostomy placement. GI services have been consulted 5. Leukopenia likely related to her recent acute infections and underlying liver disease 6. Thrombocytopenia chronic. Secondary to underlying liver cirrhosis 7. Chronic Normocytic anemia secondary to liver cirrhosis and malignancy. Oncology following 8. Hyperkalemia. Potassium 5.5. Will give 1 dose kayexlate ordered recheck potassium today. We'll also place patient on low potassium diet. potassium 4.7. 9. Increased abdominal pain with nausea. Per GI services patient will undergo you ultrasound-guided paracentesis today. 10. Diabetes mellitus . Hemoglobin A1c 7.1. continue sliding scale added GI prophylaxis Protonix. DVT prophylaxis SCDs due to thrombocytopenia I performed an examination of the patient and discussed their management with the Nurse Practitioner. I have reviewed the Nurse Practitioner's notes and agree with the documented findings and plan of care Pain Meds have been adjusted per oncology services.
[2018-11-18 10:46] LABS: Platelet Count 92 k/uL (150-450); Poikilocytosis (M) Present
[2018-11-18 11:31] LABS: INR 1.6 (<1.2); Prothrombin Time 15.6 sec (9.0-12.0)
[2018-11-18 11:37] LABS: Glucose,Whole Blood 174 mg/dL (75-99)
[2018-11-18 12:16] VITALS: BMI 29.5
--- NOTE | 2018-11-18 13:24 | US ---
Therapeutic paracentesis. DATE OF EXAM: 11/18/2018 CLINICAL HISTORY: Ascites The procedure was discussed with the patient. The risks, complications, benefits, and alternatives we re discussed and any questions were answered. Informed consent was obtained. The patient was placed s upine on the ultrasound table and prepped and draped in the usual sterile fashion. All elements of maximal barrier technique were utilized. Under ultrasound guidance, access into the right lower quadrant was obtained, via the paracentesis catheter system and direct ultrasound guidanc e. Approximately 1.5 liters of straw-colored fluid was removed. The patient was stable throughout the pr ocedure and remained stable upon discharge from Department of Radiology. IMPRESSION: Successful therapeutic paracentesis under ultrasound guidance.
--- NOTE | 2018-11-18 13:41 | P.PN ---
Subjective Progress Note Date: 11/18/18 Principal diagnosis: intractable abd pain Pt seen in f/u, she is s/p paracentesis, only reports slight improvement in pain , reporting pain in the epigastric area, radiating to the stoma, stabbing, constant, and on further questioning she states the breakthrough pain meds just "take the edge off". Pt is sitting up in bed, eating her lunch. No nausea, FLAVIO. Ostomy output is stool and not just clear liquid today. Objective - Vital Signs Vital signs: Vital Signs Temp 98.5 F 11/18/18 12:57 Pulse 62 11/18/18 12:57 Resp 20 11/18/18 12:57 BP 122/69 11/18/18 12:57 Pulse Ox 100 11/18/18 12:57 Intake & Output 11/17/18 11/18/18 11/18/18 18:59 06:59 18:59 Intake Total 240 780 Output Total 5 Balance 235 780 Weight 90.718 kg Intake: Oral 240 780 Output: Urine 2 Stool 3 Other: Voiding Method Toilet Toilet Toilet # Voids 3 2 # Bowel Movements 2 - Constitutional General appearance: Present: cooperative, no acute distress, obese - EENT Eyes: Present: anicteric sclerae, EOMI - Respiratory Respiratory: bilateral: CTA - Cardiovascular Heart sounds: normal: S1, S2 - Gastrointestinal General gastrointestinal: Present: normal bowel sounds, tenderness - Integumentary Integumentary: Present: normal - Neurologic Neurologic: Present: CNII-XII intact - Musculoskeletal Musculoskeletal: Present: strength equal bilaterally - Psychiatric Psychiatric: Present: A&O x's 3, appropriate affect, intact judgment & insight - Labs CBC & Chem 7: 11/18/18 08:24 11/18/18 08:24 Labs: Abnormal Lab Results - Last 24 Hours (Table) 11/17/18 11/17/18 11/18/18 Range/Units 17:34 20:33 07:03 WBC (3.8-10.6) k/uL RBC (3.80-5.40) m/uL Hgb (11.4-16.0) gm/dL Hct (34.0-46.0) % RDW (11.5-15.5) % Plt Count (150-450) k/uL PT (9.0-12.0) sec INR (<1.2) Sodium (137-145) mmol/L Chloride (98-107) mmol/L Carbon Dioxide (22-30) mmol/L Glucose (74-99) mg/dL POC Glucose (mg/dL) 145 H 206 H 145 H (75-99) mg/dL Calcium (8.4-10.2) mg/dL Alkaline Phosphatase (38-126) U/L Total Protein (6.3-8.2) g/dL Albumin (3.5-5.0) g/dL 11/18/18 11/18/18 11/18/18 Range/Units 08:24 08:24 10:32 WBC 3.4 L (3.8-10.6) k/uL RBC 3.17 L (3.80-5.40) m/uL Hgb 9.4 L (11.4-16.0) gm/dL Hct 30.2 L (34.0-46.0) % RDW 17.5 H (11.5-15.5) % Plt Count 92 L (150-450) k/uL PT 15.6 H (9.0-12.0) sec INR 1.6 H (<1.2) Sodium 136 L (137-145) mmol/L Chloride 110 H (98-107) mmol/L Carbon Dioxide 20 L (22-30) mmol/L Glucose 146 H (74-99) mg/dL POC Glucose (mg/dL) (75-99) mg/dL Calcium 8.1 L (8.4-10.2) mg/dL Alkaline Phosphatase 226 H (38-126) U/L Total Protein 5.9 L (6.3-8.2) g/dL Albumin 2.3 L (3.5-5.0) g/dL 11/18/18 Range/Units 11:35 WBC (3.8-10.6) k/uL RBC (3.80-5.40) m/uL Hgb (11.4-16.0) gm/dL Hct (34.0-46.0) % RDW (11.5-15.5) % Plt Count (150-450) k/uL PT (9.0-12.0) sec INR (<1.2) Sodium (137-145) mmol/L Chloride (98-107) mmol/L Carbon Dioxide (22-30) mmol/L Glucose (74-99) mg/dL POC Glucose (mg/dL) 174 H (75-99) mg/dL Calcium (8.4-10.2) mg/dL Alkaline Phosphatase (38-126) U/L Total Protein (6.3-8.2) g/dL Albumin (3.5-5.0) g/dL Assessment and Plan (1) Abdominal pain Narrative/Plan: S/P para with no significant improvement in pt abd pain c/o. Did review GI and IM notes. Possible surgical consult or pain services evaluation. On review of MAR, it appears pt has only used breakthrough pain med once in the last 24 hours. D/W nursing to cont to educate pt on pain mgmt. Current Visit: Yes Status: Acute Priority: High Code(s): R10.9 - UNSPECIFIED ABDOMINAL PAIN SNOMED Code(s): 71738318 (2) Nausea with vomiting, unspecified Current Visit: Yes Status: Resolved Priority: High Code(s): R11.2 - NAUSEA WITH VOMITING, UNSPECIFIED SNOMED Code(s): 03174248 (3) Hepatocellular carcinoma Narrative/Plan: F/U appt scheduled to discuss treatment plans. Current Visit: No Status: Chronic Priority: Medium Code(s): C22.0 - LIVER CELL CARCINOMA SNOMED Code(s): 997101960
[2018-11-18 17:34] LABS: Glucose,Whole Blood 133 mg/dL (75-99)
--- NOTE | 2018-11-18 18:37 | P.GSCN ---
History of Present Illness Consult date: 11/18/18 Reason for Consult: Abdominal pain at stoma site History of present illness: This is a 73-year-old female with a complicated medical history. Patient was admitted to the hospital. She has had complaints of abdominal pain at her colostomy site. The patient has a history History of perforated diverticulitis. She is a recent diagnosis of hepatocellular carcinoma. The patient is currently tolerating a diet. Her colostomy is well functioning. Past Medical History Past Medical History: Cancer, Diabetes Mellitus, Hypertension, Liver Disease Additional Past Medical History / Comment(s): liver ca- had chemo 10-03-18,past ascities-paracentesis, ( ulcer(sx),diveticulitis anx/depression History of Any Multi-Drug Resistant Organisms: MRSA Year Discovered:: 10/23/18 MDRO Source:: MRSA STOOL Past Surgical History: Appendectomy, Bowel Resection, Section, Cholecystectomy, Hysterectomy, Tonsillectomy Additional Past Surgical History / Comment(s): rt rotator cuff repair,carpal tunnel release .liver bx,ilieostomy ,11-02-18 had paracentesis. Multiple chemo embolizations of liver tumors Past Anesthesia/Blood Transfusion Reactions: No Reported Reaction Additional Psychological History / Comment(s): Reformed smoker. . Retired. No experience. No animal exposures Smoking Status: Former smoker - Past Family History Mother History Unknown: Yes Family Medical History: Congestive Heart Failure (CHF) Medications and Allergies Home Medications Medication Instructions Recorded Confirmed Type Dicyclomine [Bentyl] 10 mg PO TID 10/23/18 11/11/18 History Furosemide [Lasix] 40 mg PO DAILY 10/23/18 11/11/18 History Omeprazole [PriLOSEC] 20 mg PO BID 10/23/18 11/11/18 History Sucralfate [Carafate] 1 gm PO QID 10/23/18 11/11/18 History Aspirin EC [Ecotrin Low Dose] 81 mg PO DAILY 10/24/18 11/11/18 History Insulin NPH Human Isophane 18 unit SQ BID 10/24/18 11/11/18 History [NovoLIN N] Insulin Regular, Human [NovoLIN R] 8 unit SQ AC-TID 10/24/18 11/11/18 History Magnesium 200 mg PO DAILY 10/24/18 11/11/18 History Metoprolol Tartrate 12.5 mg PO DAILY 10/24/18 11/11/18 History Morphine Sulfate ER [Ms Contin] 15 mg PO Q12HR 10/24/18 11/11/18 History Ondansetron [Zofran ODT] 8 mg PO Q8HR 10/24/18 11/11/18 History Nystatin 100,000 Unit/ml Susp 500,000 unit PO QID #12 cup 11/03/18 11/11/18 Rx [Mycostatin Oral Susp] Vancomycin HCl [Vancocin HCl] 250 mg PO Q6HR 7 Days #28 capsule 11/03/18 Rx clonazePAM [KlonoPIN] 0.5 mg PO DAILY tab 11/03/18 11/11/18 Rx Cholestyramine (with Sugar) 4 gm PO TID #21 packet 11/04/18 11/11/18 Rx [Questran] Allergies Allergy/AdvReac Type Severity Reaction Status Date / Time GREG Inhibitors Allergy Cough Verified 11/11/18 13:18 amlodipine Allergy Rash/Hives Verified 11/11/18 13:18 oxycodone Allergy Rash/Hives Verified 11/11/18 13:18 Penicillins Allergy Rash/Hives Verified 11/11/18 13:18 hydromorphone [From Dilaudid] AdvReac Unknown Verified 11/11/18 13:18 sodium dodecyclbenzene Allergy Rash/Hives Uncoded 11/11/18 13:05 sulfonate Surgical - Exam Vital Signs Temp Pulse Resp BP Pulse Ox 98.5 F 74 20 114/60 99 11/11/18 13:03 11/11/18 13:03 11/11/18 13:03 11/11/18 13:03 11/11/18 13:03 - General well developed, no distress - Eyes PERRL - ENT normal pinna - Neck no masses - Respiratory normal expansion - Cardiovascular Rhythm: regular - Abdomen Stoma on left lower quadrant abdominal wall. There is a large amount stool in the stone. There is no obvious inflammation. There appears to be a small area stomal hernia. Abdomen: soft, non tender Results - Labs 11/18/18 08:24 11/18/18 08:24 Abnormal Lab Results - Last 24 Hours (Table) 11/17/18 11/18/18 11/18/18 Range/Units 20:33 07:03 08:24 WBC 3.4 L (3.8-10.6) k/uL RBC 3.17 L (3.80-5.40) m/uL Hgb 9.4 L (11.4-16.0) gm/dL Hct 30.2 L (34.0-46.0) % RDW 17.5 H (11.5-15.5) % Plt Count 92 L (150-450) k/uL PT (9.0-12.0) sec INR (<1.2) Sodium (137-145) mmol/L Chloride (98-107) mmol/L Carbon Dioxide (22-30) mmol/L Glucose (74-99) mg/dL POC Glucose (mg/dL) 206 H 145 H (75-99) mg/dL Calcium (8.4-10.2) mg/dL Alkaline Phosphatase (38-126) U/L Total Protein (6.3-8.2) g/dL Albumin (3.5-5.0) g/dL 11/18/18 11/18/18 11/18/18 Range/Units 08:24 10:32 11:35 WBC (3.8-10.6) k/uL RBC (3.80-5.40) m/uL Hgb (11.4-16.0) gm/dL Hct (34.0-46.0) % RDW (11.5-15.5) % Plt Count (150-450) k/uL PT 15.6 H (9.0-12.0) sec INR 1.6 H (<1.2) Sodium 136 L (137-145) mmol/L Chloride 110 H (98-107) mmol/L Carbon Dioxide 20 L (22-30) mmol/L Glucose 146 H (74-99) mg/dL POC Glucose (mg/dL) 174 H (75-99) mg/dL Calcium 8.1 L (8.4-10.2) mg/dL Alkaline Phosphatase 226 H (38-126) U/L Total Protein 5.9 L (6.3-8.2) g/dL Albumin 2.3 L (3.5-5.0) g/dL 11/18/18 Range/Units 17:33 WBC (3.8-10.6) k/uL RBC (3.80-5.40) m/uL Hgb (11.4-16.0) gm/dL Hct (34.0-46.0) % RDW (11.5-15.5) % Plt Count (150-450) k/uL PT (9.0-12.0) sec INR (<1.2) Sodium (137-145) mmol/L Chloride (98-107) mmol/L Carbon Dioxide (22-30) mmol/L Glucose (74-99) mg/dL POC Glucose (mg/dL) 133 H (75-99) mg/dL Calcium (8.4-10.2) mg/dL Alkaline Phosphatase (38-126) U/L Total Protein (6.3-8.2) g/dL Albumin (3.5-5.0) g/dL Diabetes panel 11/18/18 Range/Units 08:24 Sodium 136 L (137-145) mmol/L Potassium 4.3 (3.5-5.1) mmol/L Chloride 110 H (98-107) mmol/L Carbon Dioxide 20 L (22-30) mmol/L BUN 9 (7-17) mg/dL Creatinine 0.82 (0.52-1.04) mg/dL Glucose 146 H (74-99) mg/dL Calcium 8.1 L (8.4-10.2) mg/dL AST 36 (14-36) U/L ALT 28 (9-52) U/L Alkaline Phosphatase 226 H (38-126) U/L Total Protein 5.9 L (6.3-8.2) g/dL Albumin 2.3 L (3.5-5.0) g/dL Calcium panel 11/18/18 Range/Units 08:24 Calcium 8.1 L (8.4-10.2) mg/dL Albumin 2.3 L (3.5-5.0) g/dL Pituitary panel 11/18/18 Range/Units 08:24 Sodium 136 L (137-145) mmol/L Potassium 4.3 (3.5-5.1) mmol/L Chloride 110 H (98-107) mmol/L Carbon Dioxide 20 L (22-30) mmol/L BUN 9 (7-17) mg/dL Creatinine 0.82 (0.52-1.04) mg/dL Glucose 146 H (74-99) mg/dL Calcium 8.1 L (8.4-10.2) mg/dL Adrenal panel 11/18/18 Range/Units 08:24 Sodium 136 L (137-145) mmol/L Potassium 4.3 (3.5-5.1) mmol/L Chloride 110 H (98-107) mmol/L Carbon Dioxide 20 L (22-30) mmol/L BUN 9 (7-17) mg/dL Creatinine 0.82 (0.52-1.04) mg/dL Glucose 146 H (74-99) mg/dL Calcium 8.1 L (8.4-10.2) mg/dL Total Bilirubin 1.3 (0.2-1.3) mg/dL AST 36 (14-36) U/L ALT 28 (9-52) U/L Alkaline Phosphatase 226 H (38-126) U/L Total Protein 5.9 L (6.3-8.2) g/dL Albumin 2.3 L (3.5-5.0) g/dL Assessment and Plan Assessment: Abdominal pain at colostomy site. Due to the patient's significant medical history and recommend observing her. Her colostomy is functioning. There is no evidence of bowel obstruction. No surgical intervention is planned.
[2018-11-18 19:55] LABS: Glucose,Whole Blood 204 mg/dL (75-99)
[2018-11-19] MEDS: MORPHINE SULFATE ER 15 MG TABLET PO SCH ×3 (05:32→23:02)
[2018-11-19 07:28] LABS: Glucose,Whole Blood 86 mg/dL (75-99)
[2018-11-19] MEDS: INSULIN ASPART 100 UNIT/ML 1 ML 10 ML VIAL SQ SCH ×4 (07:30→23:05)
[2018-11-19 08:01] LABS: Anisocytosis Slight; Basophils % (A) 0 %; Eosinophils # (A) 0.2 k/uL (0-0.7); Eosinophils % (A) 6 %; HCT 30.1 % (34.0-46.0); HGB 9.2 gm/dL (11.4-16.0); Hypochromasia Marked; Lymphocytes % (A) 32 %; MCH 29.2 pg (25.0-35.0); MCHC 30.6 g/dL (31.0-37.0); MCV 95.3 fL (80.0-100.0); Mean Platelet Volume 8.8; Monocytes # (A) 0.3 k/uL (0-1.0); Monocytes % (A) 10 %; Neutrophils # (A) 1.4 k/uL (1.3-7.7); Neutrophils % (A) 48 %; RBC 3.16 m/uL (3.80-5.40); RDW 17.2 % (11.5-15.5)
[2018-11-19 08:05] LABS: Platelet Count 74 k/uL (150-450)
[2018-11-19 08:19] LABS: Albumin 2.2 g/dL (3.5-5.0); Potassium 4.5 mmol/L (3.5-5.1); Total Bilirubin 1.3 mg/dL (0.2-1.3); Total Protein 5.5 g/dL (6.3-8.2)
[2018-11-19] MEDS: MORPHINE CONC SOLN 10mg/0.5mL ORAL SYRG PO PRN ×2 (09:02→17:30)
[2018-11-19] MEDS: NYSTATIN 100,000 UNIT/ML SUSP 500,000 UNIT/5 ML CUP PO SCH ×4 (09:03→23:03)
[2018-11-19] MEDS: ONDANSETRON 4 MG/2 ML VIAL IVP PRN (09:03)
[2018-11-19] MEDS: METOPROLOL TARTRATE 12.5 MG TAB PO SCH (09:04)
[2018-11-19] MEDS: FUROSEMIDE 40 MG TAB PO SCH (09:04)
[2018-11-19] MEDS: PANTOPRAZOLE 40 MG TABLET PO SCH (09:04)
[2018-11-19] MEDS: clonazePAM 0.5 MG TAB PO SCH (09:04)
[2018-11-19] MEDS: MAGNESIUM OXIDE 400 MG TAB PO SCH (09:04)
[2018-11-19] MEDS: DICYCLOMINE 10 MG CAP PO SCH ×3 (09:04→23:02)
[2018-11-19] MEDS: CHOLESTYRAMINE (WITH SUGAR) 4 GM PACKET PO SCH ×3 (09:05→17:24)
[2018-11-19] MEDS: INSULIN NPH 300 UNIT/3 ML VIAL SQ SCH ×2 (09:05→23:04)
[2018-11-19] MEDS: SUCRALFATE 1 GM TAB PO SCH ×4 (09:05→23:02)
[2018-11-19 11:17] LABS: Glucose,Whole Blood 227 mg/dL (75-99)
--- NOTE | 2018-11-19 12:38 | P.PN ---
Subjective Progress Note Date: 11/19/18 11/14/2018 this patient has a history of hepatocellular carcinoma. She presented to the hospital with intractable abdominal pain. Is followed closely by oncology. They have increased her MS Contin to 15 mg by mouth every 8 hours as well as she is getting IV morphine. Oncology has ordered abdominal ultrasound which is showing a moderate amount of ascites. White count has improved from 2.9-4.6 hemoglobin 9.5 up to 11 and platelets 90 06/15/2019. Awaiting further oncology recommendations regarding a possible paracentesis as well as further pain control. Per ID patient needs no further antibiotic coverage she completed oral Vanco treatment for MRSA in the colon. He also ruled out for UTI. A1c 7.1. Patient still reporting abdominal pain. However, MS Contin frequency change has helped. She denies any chest pain or shortness of breath. Denies any nausea or vomiting. Reports having regular bowel movements. Denies any difficulty with urinating. On 11/15/2018 patient is currently resting comfortably in bed. Potassium elevated at 5.5. Will order 1 dose of Kayexalate and put patient on Lopressor potassium diet. Patient denies chest pain or shortness of breath. Patient denies nausea vomiting or diarrhea. Patient denies any urinary burning or frequency. Awaiting oncology recommendation for possible paracentesis. On 11/16/2018 patient is currently resting bed. Patient still complaining of abdominal discomfort. Oncology service is currently at bedside recommending possible GI consult for further investigation with EGD or colonoscopy. Potassium improved to 4.6. At this time patient denies chest pain or shortness breath. Patient denies nausea vomiting or diarrhea. Patient denies any urinary burning or frequency On 11/17/2018 patient is alert and oriented 3 resting comfortably in bed. Patient still complaining of some abdominal pain around the stoma site. GI services have been consulted. Pain adequately controlled at this time. This time patient denies chest pain or shortness of breath. Patient denies nausea vomiting or diarrhea. Patient denies any urinary burning or frequency. On 11/18/2018 patient is alert and oriented 3. Discussed case with GI services. Possible paracentesis due to increased abdominal pain. No plans for inpatient scope at this time. Patient denies chest pain or shortness of breath. Patient denies nausea vomiting or diarrhea. Patient denies any urinary burning or frequency On 11/19/2018 patient was seen and examined on the medical floor she is alert and oriented 3 this morning she had an episode of severe abdominal pain currently she is off IV pain medications and is maintained on long-acting morphine and short-acting Roxanol she stated that her pain is not well controlled dose of Roxanol will be increased to 10 mg by mouth every 3 hours as needed he was evaluated by surgery no surgical intervention was recommended at this time otherwise she denies any complaints there is no fever or chills no headache or dizziness no chest pain no shortness of breath no cough no nausea or vomiting and no urinary symptoms. Objective - Vital Signs Vital signs: Vital Signs Temp 98.7 F 11/19/18 12:07 Pulse 61 11/19/18 12:07 Resp 16 11/19/18 12:07 BP 119/73 11/19/18 12:07 Pulse Ox 100 11/19/18 12:07 Intake & Output 11/18/18 11/19/18 11/19/18 18:59 06:59 18:59 Intake Total 480 Balance 480 Weight 90.718 kg Intake: Oral 480 Other: Voiding Method Toilet Toilet Toilet # Voids 5 3 - Exam Head normocephalic and atraumatic Neck supple no JVD no goiter Lungs clear to auscultation bilaterally no wheezing or crackles Heart regular rate and rhythm S1-S2, no rub or gallop Abdomen is soft right upper quadrant tenderness nondistended positive bowel sounds no hepatosplenomegaly Extremities no edema no cyanosis or clubbing Neuro alert and orientated to 3 - Labs CBC & Chem 7: 11/19/18 07:07 11/19/18 07:07 Labs: Abnormal Lab Results - Last 24 Hours (Table) 11/18/18 11/18/18 11/19/18 Range/Units 17:33 19:53 07:07 WBC 3.0 L (3.8-10.6) k/uL RBC 3.16 L (3.80-5.40) m/uL Hgb 9.2 L (11.4-16.0) gm/dL Hct 30.1 L (34.0-46.0) % MCHC 30.6 L (31.0-37.0) g/dL RDW 17.2 H (11.5-15.5) % Plt Count 74 L (150-450) k/uL Chloride (98-107) mmol/L POC Glucose (mg/dL) 133 H 204 H (75-99) mg/dL Calcium (8.4-10.2) mg/dL Alkaline Phosphatase (38-126) U/L Total Protein (6.3-8.2) g/dL Albumin (3.5-5.0) g/dL 11/19/18 11/19/18 Range/Units 07:07 11:16 WBC (3.8-10.6) k/uL RBC (3.80-5.40) m/uL Hgb (11.4-16.0) gm/dL Hct (34.0-46.0) % MCHC (31.0-37.0) g/dL RDW (11.5-15.5) % Plt Count (150-450) k/uL Chloride 110 H (98-107) mmol/L POC Glucose (mg/dL) 227 H (75-99) mg/dL Calcium 8.0 L (8.4-10.2) mg/dL Alkaline Phosphatase 189 H (38-126) U/L Total Protein 5.5 L (6.3-8.2) g/dL Albumin 2.2 L (3.5-5.0) g/dL Assessment and Plan Plan: 1. Hepatocellular carcinoma with moderate ascites noted on ultrasound. Await oncology further recommendations. Continue with MS Contin 15 mg by mouth every 8 hours and IV morphine as needed for pain control. Await further recommendations per oncology. Patient has required paracentesis in the past. Per oncology service is recommending GI consult due to pain not consistent with cancer workup. Per oncology patient also advised to follow-up with oncology service to establish patient provider relationship 2. Colonization with MRSA. Patient treated with oral vancomycin. Per ID no further active infection. Continue the cholestyramine to maintain stool consistency. 3. Nonalcoholic liver cirrhosis. Abdominal ultrasound completed showing moderate abdominal ascites likely on basis process. Discussed case with oncology services. No paracentesis required at this time. GI consult has been placed for ongoing abdominal pain. 4. Diverticulitis with history of bowel perforation and ileostomy placement. GI services have been consulted 5. Leukopenia likely related to her recent acute infections and underlying liver disease 6. Thrombocytopenia chronic. Secondary to underlying liver cirrhosis 7. Chronic Normocytic anemia secondary to liver cirrhosis and malignancy. Oncology following 8. Hyperkalemia. Potassium 5.5. Will give 1 dose kayexlate ordered recheck potassium today. We'll also place patient on low potassium diet. potassium 4.7. 9. Increased abdominal pain with nausea. Per GI services patient will undergo you ultrasound-guided paracentesis today. 10. Diabetes mellitus . Hemoglobin A1c 7.1. continue sliding scale added GI prophylaxis Protonix. DVT prophylaxis SCDs due to thrombocytopenia Patient was evaluated by surgery Dr. Avendano, no surgical intervention recommended at this time Patient is still having significant pain dose of Roxanol increased to 10 mg by mouth every 3 hours as needed will follow in a.m.
--- NOTE | 2018-11-19 12:43 | P.PN ---
Progress Note - Text Progress Note Date: 11/19/18 The patient resting comfortably in her bed. She still has complaints of pain at her stoma site. On exam her lesser stable. Her abdomen soft. Her stomas function. History of abdominal pain with metastatic cancer. Patient will continue to have supportive care. No surgical intervention is planned.
[2018-11-19 17:08] LABS: Glucose,Whole Blood 195 mg/dL (75-99)
[2018-11-19 20:39] LABS: Glucose,Whole Blood 138 mg/dL (75-99)
[2018-11-20] MEDS: MORPHINE CONC SOLN 10mg/0.5mL ORAL SYRG PO PRN ×2 (01:55→22:45)
[2018-11-20 07:05] LABS: Anisocytosis Slight; HCT 27.2 % (34.0-46.0); HGB 8.5 gm/dL (11.4-16.0); Hypochromasia Moderate; MCH 30.1 pg (25.0-35.0); MCHC 31.2 g/dL (31.0-37.0); MCV 96.5 fL (80.0-100.0); Macrocytosis Slight; Mean Platelet Volume 9.4; Platelet Count 67 k/uL (150-450); RBC 2.82 m/uL (3.80-5.40); RDW 17.4 % (11.5-15.5)
[2018-11-20 07:07] LABS: Glucose,Whole Blood 131 mg/dL (75-99)
[2018-11-20 07:52] LABS: Albumin 1.9 g/dL (3.5-5.0); Calcium 7.8 mg/dL (8.4-10.2); Potassium 4.5 mmol/L (3.5-5.1); Total Bilirubin 1.5 mg/dL (0.2-1.3); Total Protein 5.1 g/dL (6.3-8.2)
[2018-11-20 07:55] LABS: Eosinophils # (M) 0.06 k/uL (0-0.7); Lymphocytes # (M) 0.96 k/uL (1.0-4.8); Monocytes # (M) 0.15 k/uL (0-1.0); Neutrophils # (M) 1.83 k/uL (1.3-7.7); Neutrophils % (M) 61 %; Nucleated Red Blood Cells 0 /100 WBC (0-0); Total Cells Counted 100
[2018-11-20 07:56] LABS: Poikilocytosis (M) Present
[2018-11-20] MEDS: MORPHINE SULFATE ER 15 MG TABLET PO SCH ×3 (08:02→20:57)
[2018-11-20] MEDS: INSULIN ASPART 100 UNIT/ML 1 ML 10 ML VIAL SQ SCH ×4 (08:03→20:57)
[2018-11-20] MEDS: PANTOPRAZOLE 40 MG TABLET PO SCH (08:03)
[2018-11-20] MEDS: NYSTATIN 100,000 UNIT/ML SUSP 500,000 UNIT/5 ML CUP PO SCH ×4 (08:04→20:57)
[2018-11-20] MEDS: DICYCLOMINE 10 MG CAP PO SCH ×3 (08:04→20:58)
[2018-11-20] MEDS: FUROSEMIDE 40 MG TAB PO SCH (08:04)
[2018-11-20] MEDS: METOPROLOL TARTRATE 12.5 MG TAB PO SCH (08:04)
[2018-11-20] MEDS: MAGNESIUM OXIDE 400 MG TAB PO SCH (08:04)
[2018-11-20] MEDS: SUCRALFATE 1 GM TAB PO SCH ×4 (08:04→20:58)
[2018-11-20] MEDS: CHOLESTYRAMINE (WITH SUGAR) 4 GM PACKET PO SCH ×3 (08:05→17:37)
[2018-11-20] MEDS: clonazePAM 0.5 MG TAB PO SCH (09:57)
[2018-11-20 11:34] LABS: Glucose,Whole Blood 217 mg/dL (75-99)
[2018-11-20] MEDS: INSULIN NPH 300 UNIT/3 ML VIAL SQ SCH ×2 (11:50→20:58)
--- NOTE | 2018-11-20 12:44 | P.PN ---
Progress Note - Text Progress Note Date: 11/20/18 The patient still has complaints that her ostomy site. She underwent a therapeutic paracentesis. A proximally 1.5 L of ascitic fluid was removed. On exam her vital signs are stable. Her abdomen is soft. Colostomy is functioning. History of hepatocellular carcinoma. Abdominal pain at stoma site. No surgical intervention is planned..
--- NOTE | 2018-11-20 14:38 | P.PN ---
Subjective Progress Note Date: 11/20/18 11/14/2018 this patient has a history of hepatocellular carcinoma. She presented to the hospital with intractable abdominal pain. Is followed closely by oncology. They have increased her MS Contin to 15 mg by mouth every 8 hours as well as she is getting IV morphine. Oncology has ordered abdominal ultrasound which is showing a moderate amount of ascites. White count has improved from 2.9-4.6 hemoglobin 9.5 up to 11 and platelets 90 06/15/2019. Awaiting further oncology recommendations regarding a possible paracentesis as well as further pain control. Per ID patient needs no further antibiotic coverage she completed oral Vanco treatment for MRSA in the colon. He also ruled out for UTI. A1c 7.1. Patient still reporting abdominal pain. However, MS Contin frequency change has helped. She denies any chest pain or shortness of breath. Denies any nausea or vomiting. Reports having regular bowel movements. Denies any difficulty with urinating. On 11/15/2018 patient is currently resting comfortably in bed. Potassium elevated at 5.5. Will order 1 dose of Kayexalate and put patient on Lopressor potassium diet. Patient denies chest pain or shortness of breath. Patient denies nausea vomiting or diarrhea. Patient denies any urinary burning or frequency. Awaiting oncology recommendation for possible paracentesis. On 11/16/2018 patient is currently resting bed. Patient still complaining of abdominal discomfort. Oncology service is currently at bedside recommending possible GI consult for further investigation with EGD or colonoscopy. Potassium improved to 4.6. At this time patient denies chest pain or shortness breath. Patient denies nausea vomiting or diarrhea. Patient denies any urinary burning or frequency On 11/17/2018 patient is alert and oriented 3 resting comfortably in bed. Patient still complaining of some abdominal pain around the stoma site. GI services have been consulted. Pain adequately controlled at this time. This time patient denies chest pain or shortness of breath. Patient denies nausea vomiting or diarrhea. Patient denies any urinary burning or frequency. On 11/18/2018 patient is alert and oriented 3. Discussed case with GI services. Possible paracentesis due to increased abdominal pain. No plans for inpatient scope at this time. Patient denies chest pain or shortness of breath. Patient denies nausea vomiting or diarrhea. Patient denies any urinary burning or frequency On 11/19/2018 patient was seen and examined on the medical floor she is alert and oriented 3 this morning she had an episode of severe abdominal pain currently she is off IV pain medications and is maintained on long-acting morphine and short-acting Roxanol she stated that her pain is not well controlled dose of Roxanol will be increased to 10 mg by mouth every 3 hours as needed he was evaluated by surgery no surgical intervention was recommended at this time otherwise she denies any complaints there is no fever or chills no headache or dizziness no chest pain no shortness of breath no cough no nausea or vomiting and no urinary symptoms. On 11/20/2018 agent was seen and examined on the medical floor she is alert and oriented 3 in no apparent distress pain is better controlled today there is no fever or chills no headache or dizziness no chest pain no shortness of breath no cough no nausea or vomiting and no urinary symptoms Objective - Vital Signs Vital signs: Vital Signs Temp 98.5 F 11/20/18 12:21 Pulse 67 11/20/18 12:21 Resp 16 11/20/18 12:21 BP 94/38 11/20/18 12:21 Pulse Ox 100 11/20/18 12:21 Intake & Output 11/19/18 11/20/18 11/20/18 18:59 06:59 18:59 Output Total 1 Balance -1 Output: Stool 1 Other: Voiding Method Toilet Toilet Toilet Diaper Diaper # Voids 4 # Bowel Movements 3 - Exam Head normocephalic and atraumatic Neck supple no JVD no goiter Lungs clear to auscultation bilaterally no wheezing or crackles Heart regular rate and rhythm S1-S2, no rub or gallop Abdomen is soft right upper quadrant tenderness nondistended positive bowel sounds no hepatosplenomegaly Extremities no edema no cyanosis or clubbing Neuro alert and orientated to 3 - Labs CBC & Chem 7: 11/20/18 06:38 11/20/18 06:38 Labs: Abnormal Lab Results - Last 24 Hours (Table) 11/19/18 11/19/18 11/20/18 Range/Units 17:07 20:38 06:38 WBC 3.0 L (3.8-10.6) k/uL RBC 2.82 L (3.80-5.40) m/uL Hgb 8.5 L (11.4-16.0) gm/dL Hct 27.2 L (34.0-46.0) % RDW 17.4 H (11.5-15.5) % Plt Count 67 L (150-450) k/uL Lymphocytes # (Manual) 0.96 L (1.0-4.8) k/uL Sodium (137-145) mmol/L Chloride (98-107) mmol/L Glucose (74-99) mg/dL POC Glucose (mg/dL) 195 H 138 H (75-99) mg/dL Calcium (8.4-10.2) mg/dL Total Bilirubin (0.2-1.3) mg/dL Alkaline Phosphatase (38-126) U/L Total Protein (6.3-8.2) g/dL Albumin (3.5-5.0) g/dL 11/20/18 11/20/18 11/20/18 Range/Units 06:38 07:05 11:32 WBC (3.8-10.6) k/uL RBC (3.80-5.40) m/uL Hgb (11.4-16.0) gm/dL Hct (34.0-46.0) % RDW (11.5-15.5) % Plt Count (150-450) k/uL Lymphocytes # (Manual) (1.0-4.8) k/uL Sodium 135 L (137-145) mmol/L Chloride 110 H (98-107) mmol/L Glucose 123 H (74-99) mg/dL POC Glucose (mg/dL) 131 H 217 H (75-99) mg/dL Calcium 7.8 L (8.4-10.2) mg/dL Total Bilirubin 1.5 H (0.2-1.3) mg/dL Alkaline Phosphatase 165 H (38-126) U/L Total Protein 5.1 L (6.3-8.2) g/dL Albumin 1.9 L (3.5-5.0) g/dL Assessment and Plan Plan: 1. Hepatocellular carcinoma with moderate ascites noted on ultrasound. Await oncology further recommendations. Continue with MS Contin 15 mg by mouth every 8 hours and IV morphine as needed for pain control. Await further recommendations per oncology. Patient has required paracentesis in the past. Per oncology service is recommending GI consult due to pain not consistent with cancer workup. Per oncology patient also advised to follow-up with oncology service to establish patient provider relationship 2. Colonization with MRSA. Patient treated with oral vancomycin. Per ID no further active infection. Continue the cholestyramine to maintain stool consistency. 3. Nonalcoholic liver cirrhosis. Abdominal ultrasound completed showing moderate abdominal ascites likely on basis process. Discussed case with oncology services. No paracentesis required at this time. GI consult has been placed for ongoing abdominal pain. 4. Diverticulitis with history of bowel perforation and ileostomy placement. GI services have been consulted 5. Leukopenia likely related to her recent acute infections and underlying liver disease 6. Thrombocytopenia chronic. Secondary to underlying liver cirrhosis 7. Chronic Normocytic anemia secondary to liver cirrhosis and malignancy. Oncology following 8. Hyperkalemia. Potassium 5.5. Will give 1 dose kayexlate ordered recheck potassium today. We'll also place patient on low potassium diet. potassium 4.7. 9. Increased abdominal pain with nausea. Per GI services patient will undergo you ultrasound-guided paracentesis today. 10. Diabetes mellitus . Hemoglobin A1c 7.1. continue sliding scale added GI prophylaxis Protonix. DVT prophylaxis SCDs due to thrombocytopenia Patient was evaluated by surgery Dr. Avendano, no surgical intervention recommended at this time Patient is still having significant pain dose of Roxanol increased to 10 mg by mouth every 3 hours as needed Pain is better controlled with oral medication only will monitor till tomorrow stable possible discharge to home tomorrow
[2018-11-20 16:59] LABS: Glucose,Whole Blood 150 mg/dL (75-99)
[2018-11-20 20:28] LABS: Glucose,Whole Blood 169 mg/dL (75-99)
[2018-11-21] MEDS: MORPHINE CONC SOLN 10mg/0.5mL ORAL SYRG PO PRN (03:15)
[2018-11-21] MEDS: MORPHINE SULFATE ER 15 MG TABLET PO SCH ×3 (06:04→21:48)
[2018-11-21 07:08] LABS: Glucose,Whole Blood 109 mg/dL (75-99)
[2018-11-21] MEDS: INSULIN ASPART 100 UNIT/ML 1 ML 10 ML VIAL SQ SCH ×4 (07:28→21:46)
[2018-11-21] MEDS: NYSTATIN 100,000 UNIT/ML SUSP 500,000 UNIT/5 ML CUP PO SCH ×4 (08:12→21:49)
[2018-11-21] MEDS: METOPROLOL TARTRATE 12.5 MG TAB PO SCH (08:12)
[2018-11-21] MEDS: clonazePAM 0.5 MG TAB PO SCH (08:12)
[2018-11-21] MEDS: PANTOPRAZOLE 40 MG TABLET PO SCH (08:12)
[2018-11-21] MEDS: MAGNESIUM OXIDE 400 MG TAB PO SCH (08:12)
[2018-11-21] MEDS: SUCRALFATE 1 GM TAB PO SCH ×4 (08:13→21:49)
[2018-11-21] MEDS: CHOLESTYRAMINE (WITH SUGAR) 4 GM PACKET PO SCH ×3 (08:13→17:15)
[2018-11-21] MEDS: DICYCLOMINE 10 MG CAP PO SCH ×3 (08:13→21:49)
[2018-11-21] MEDS: INSULIN NPH 300 UNIT/3 ML VIAL SQ SCH ×2 (08:21→21:47)
[2018-11-21] MEDS: FUROSEMIDE 40 MG TAB PO SCH (08:21)
[2018-11-21 09:08] LABS: Albumin 2.4 g/dL (3.5-5.0); Calcium 8.1 mg/dL (8.4-10.2); Potassium 4.5 mmol/L (3.5-5.1); Total Bilirubin 1.6 mg/dL (0.2-1.3)
[2018-11-21 09:23] LABS: Anisocytosis Slight; HCT 31.4 % (34.0-46.0); HGB 9.8 gm/dL (11.4-16.0); Hypochromasia Marked; MCH 29.9 pg (25.0-35.0); MCHC 31.3 g/dL (31.0-37.0); MCV 95.4 fL (80.0-100.0); Mean Platelet Volume 8.6; RBC 3.29 m/uL (3.80-5.40); RDW 17.3 % (11.5-15.5); WBC 3.9 k/uL (3.8-10.6)
[2018-11-21 09:24] LABS: Platelet Count 71 k/uL (150-450)
[2018-11-21 10:40] LABS: Eosinophils # (M) 0.12 k/uL (0-0.7); Lymphocytes # (M) 0.94 k/uL (1.0-4.8); Monocytes # (M) 0.35 k/uL (0-1.0); Neutrophils % (M) 64 %; Nucleated Red Blood Cells 0 /100 WBC (0-0); Total Cells Counted 100
--- NOTE | 2018-11-21 10:56 | P.PN ---
Subjective Progress Note Date: 11/21/18 Principal diagnosis: intractable abd pain Pt seen in f/u today, in regards to her CC, abd pain, she is denying any significant relief with pain medications. Patient states that she is fine as long as she is laying there, it after she is mobile that she has the pain. She has been evaluated by gastroenterology with paracentesis, no notable relief per patient, she is also been evaluated by surgery with no surgical interventions plan. Patient denies fevers, she is eating and drinking with out indigestion, heartburn, nausea, she is short of breath on exertion, denies cough or chest pains, stable output from ostomy, patient does change her ostomy appliance rather frequently, no dysuria or hematuria, bleeding or swelling. Objective - Vital Signs Vital signs: Vital Signs Temp 98.7 F 11/21/18 05:00 Pulse 66 11/21/18 05:00 Resp 16 11/21/18 05:00 BP 120/74 11/21/18 08:00 Pulse Ox 97 11/21/18 05:00 Intake & Output 11/20/18 11/21/18 11/21/18 18:59 06:59 18:59 Intake Total 120 Balance 120 Intake: Oral 120 Other: Voiding Method Toilet Toilet Toilet Diaper Diaper Diaper # Voids 2 # Bowel Movements 3 - Constitutional General appearance: Present: cooperative, no acute distress, obese - EENT Eyes: Present: anicteric sclerae ENT: Present: hearing grossly normal - Respiratory Details: Respirations even and unlabored at rest - Gastrointestinal Localized gastrointestinal: tender: RUQ (Around the ostomy) - Integumentary Integumentary: Present: normal - Neurologic Neurologic: Present: CNII-XII intact - Musculoskeletal Musculoskeletal: Present: generalized weakness - Psychiatric Psychiatric: Present: A&O x's 3, appropriate affect, intact judgment & insight - Labs CBC & Chem 7: 11/21/18 08:02 11/21/18 08:02 Labs: Abnormal Lab Results - Last 24 Hours (Table) 11/20/18 11/20/18 11/20/18 Range/Units 11:32 16:59 20:27 RBC (3.80-5.40) m/uL Hgb (11.4-16.0) gm/dL Hct (34.0-46.0) % RDW (11.5-15.5) % Plt Count (150-450) k/uL Lymphocytes # (Manual) (1.0-4.8) k/uL Chloride (98-107) mmol/L Glucose (74-99) mg/dL POC Glucose (mg/dL) 217 H 150 H 169 H (75-99) mg/dL Calcium (8.4-10.2) mg/dL Total Bilirubin (0.2-1.3) mg/dL AST (14-36) U/L Alkaline Phosphatase (38-126) U/L Total Protein (6.3-8.2) g/dL Albumin (3.5-5.0) g/dL 11/21/18 11/21/18 11/21/18 Range/Units 07:06 08:02 08:02 RBC 3.29 L (3.80-5.40) m/uL Hgb 9.8 L (11.4-16.0) gm/dL Hct 31.4 L (34.0-46.0) % RDW 17.3 H (11.5-15.5) % Plt Count 71 L (150-450) k/uL Lymphocytes # (Manual) 0.94 L (1.0-4.8) k/uL Chloride 110 H (98-107) mmol/L Glucose 100 H (74-99) mg/dL POC Glucose (mg/dL) 109 H (75-99) mg/dL Calcium 8.1 L (8.4-10.2) mg/dL Total Bilirubin 1.6 H (0.2-1.3) mg/dL AST 37 H (14-36) U/L Alkaline Phosphatase 195 H (38-126) U/L Total Protein 6.0 L (6.3-8.2) g/dL Albumin 2.4 L (3.5-5.0) g/dL Assessment and Plan (1) Abdominal pain Narrative/Plan: Patient's abdominal pain is been worked up extensively, with no underlying cause identified. The pain pt describes is not typical of a hepatocellular carcinoma. It appears to be more related to the stoma. Staff has documented that the patient is changing her ostomy appliance sometimes several times a day. I asked the patient if she has seen in the ostomy nurse to learn how to better apply and care for the appliances as they typically are only replaced weekly. She denies seeing ostomy nurse, but staff verifies ostomy nurses has been to see patient several times. Did discuss the case with internal medicine and PE. Consult for pain management to see if they have a different approach for this pt pain. We look forward to their evaluation and recommendations. Patient has an appointment scheduled in 3 days for follow-up with [facility] and Dr. Yadav's office. This is to establish a patient/provider relationship, review the start talking miky regards to opioid prescribing and run [facility] so patient can receive narcotic prescriptions. Patient is aware that she must establish a relationship prior to us prescribing opioids greater than 3 day prescription. Current Visit: Yes Status: Acute Priority: High Code(s): R10.9 - UNSPECIFIED ABDOMINAL PAIN SNOMED Code(s): 22614941 (2) Nausea with vomiting, unspecified Current Visit: Yes Status: Resolved Priority: High Code(s): R11.2 - NAUSEA WITH VOMITING, UNSPECIFIED SNOMED Code(s): 13200860 (3) Hepatocellular carcinoma Narrative/Plan: Upon with Dr. Yadav on the to establish patient relationship so patient can receive treatment for hepatocellular carcinoma Current Visit: No Status: Chronic Priority: Medium Code(s): C22.0 - LIVER CELL CARCINOMA SNOMED Code(s): 513913537
[2018-11-21 11:36] LABS: Glucose,Whole Blood 123 mg/dL (75-99)
--- NOTE | 2018-11-21 14:04 | P.PN ---
Subjective Progress Note Date: 11/21/18 11/14/2018 this patient has a history of hepatocellular carcinoma. She presented to the hospital with intractable abdominal pain. Is followed closely by oncology. They have increased her MS Contin to 15 mg by mouth every 8 hours as well as she is getting IV morphine. Oncology has ordered abdominal ultrasound which is showing a moderate amount of ascites. White count has improved from 2.9-4.6 hemoglobin 9.5 up to 11 and platelets 90 06/15/2019. Awaiting further oncology recommendations regarding a possible paracentesis as well as further pain control. Per ID patient needs no further antibiotic coverage she completed oral Vanco treatment for MRSA in the colon. He also ruled out for UTI. A1c 7.1. Patient still reporting abdominal pain. However, MS Contin frequency change has helped. She denies any chest pain or shortness of breath. Denies any nausea or vomiting. Reports having regular bowel movements. Denies any difficulty with urinating. On 11/15/2018 patient is currently resting comfortably in bed. Potassium elevated at 5.5. Will order 1 dose of Kayexalate and put patient on Lopressor potassium diet. Patient denies chest pain or shortness of breath. Patient denies nausea vomiting or diarrhea. Patient denies any urinary burning or frequency. Awaiting oncology recommendation for possible paracentesis. On 11/16/2018 patient is currently resting bed. Patient still complaining of abdominal discomfort. Oncology service is currently at bedside recommending possible GI consult for further investigation with EGD or colonoscopy. Potassium improved to 4.6. At this time patient denies chest pain or shortness breath. Patient denies nausea vomiting or diarrhea. Patient denies any urinary burning or frequency On 11/17/2018 patient is alert and oriented 3 resting comfortably in bed. Patient still complaining of some abdominal pain around the stoma site. GI services have been consulted. Pain adequately controlled at this time. This time patient denies chest pain or shortness of breath. Patient denies nausea vomiting or diarrhea. Patient denies any urinary burning or frequency. On 11/18/2018 patient is alert and oriented 3. Discussed case with GI services. Possible paracentesis due to increased abdominal pain. No plans for inpatient scope at this time. Patient denies chest pain or shortness of breath. Patient denies nausea vomiting or diarrhea. Patient denies any urinary burning or frequency On 11/19/2018 patient was seen and examined on the medical floor she is alert and oriented 3 this morning she had an episode of severe abdominal pain currently she is off IV pain medications and is maintained on long-acting morphine and short-acting Roxanol she stated that her pain is not well controlled dose of Roxanol will be increased to 10 mg by mouth every 3 hours as needed he was evaluated by surgery no surgical intervention was recommended at this time otherwise she denies any complaints there is no fever or chills no headache or dizziness no chest pain no shortness of breath no cough no nausea or vomiting and no urinary symptoms. On 11/20/2018 agent was seen and examined on the medical floor she is alert and oriented 3 in no apparent distress pain is better controlled today there is no fever or chills no headache or dizziness no chest pain no shortness of breath no cough no nausea or vomiting and no urinary symptoms On 11/21/2018 patient is alert and oriented 3. Patient did state she has some abdominal pain throughout night. Patient denies chest pain or shortness breath. Patient denies any nausea vomiting or diarrhea. Patient denies any urinary burning or frequency. Pain services have been consulted per oncology service is Objective - Vital Signs Vital signs: Vital Signs Temp 97.8 F 11/21/18 12:28 Pulse 61 11/21/18 12:28 Resp 20 11/21/18 12:28 BP 104/56 11/21/18 12:28 Pulse Ox 100 11/21/18 12:28 Intake & Output 11/20/18 11/21/18 11/21/18 18:59 06:59 18:59 Intake Total 120 Balance 120 Intake: Oral 120 Other: Voiding Method Toilet Toilet Toilet Diaper Diaper Diaper # Voids 2 # Bowel Movements 3 - Exam Head normocephalic Neck supple Lungs clear to auscultation bilaterally no wheezing or crackles Heart regular rate and rhythm S1-S2, no rub or gallop Abdomen is soft right upper quadrant tenderness nondistended positive bowel sounds no hepatosplenomegaly Extremities no edema Neuro alert and orientated to 3 - Labs CBC & Chem 7: 11/21/18 08:02 11/21/18 08:02 Labs: Abnormal Lab Results - Last 24 Hours (Table) 11/20/18 11/20/18 11/21/18 Range/Units 16:59 20:27 07:06 RBC (3.80-5.40) m/uL Hgb (11.4-16.0) gm/dL Hct (34.0-46.0) % RDW (11.5-15.5) % Plt Count (150-450) k/uL Lymphocytes # (Manual) (1.0-4.8) k/uL Chloride (98-107) mmol/L Glucose (74-99) mg/dL POC Glucose (mg/dL) 150 H 169 H 109 H (75-99) mg/dL Calcium (8.4-10.2) mg/dL Total Bilirubin (0.2-1.3) mg/dL AST (14-36) U/L Alkaline Phosphatase (38-126) U/L Total Protein (6.3-8.2) g/dL Albumin (3.5-5.0) g/dL 11/21/18 11/21/18 11/21/18 Range/Units 08:02 08:02 11:34 RBC 3.29 L (3.80-5.40) m/uL Hgb 9.8 L (11.4-16.0) gm/dL Hct 31.4 L (34.0-46.0) % RDW 17.3 H (11.5-15.5) % Plt Count 71 L (150-450) k/uL Lymphocytes # (Manual) 0.94 L (1.0-4.8) k/uL Chloride 110 H (98-107) mmol/L Glucose 100 H (74-99) mg/dL POC Glucose (mg/dL) 123 H (75-99) mg/dL Calcium 8.1 L (8.4-10.2) mg/dL Total Bilirubin 1.6 H (0.2-1.3) mg/dL AST 37 H (14-36) U/L Alkaline Phosphatase 195 H (38-126) U/L Total Protein 6.0 L (6.3-8.2) g/dL Albumin 2.4 L (3.5-5.0) g/dL Assessment and Plan Assessment: 1. Hepatocellular carcinoma with moderate ascites noted on ultrasound. Await oncology further recommendations. Continue with MS Contin 15 mg by mouth every 8 hours and IV morphine as needed for pain control. Await further recommendations per oncology. Patient has required paracentesis in the past. Per oncology service is recommending GI consult due to pain not consistent with cancer workup. Per oncology patient also advised to follow-up with oncology service to establish patient provider relationship 2. Colonization with MRSA. Patient treated with oral vancomycin. Per ID no further active infection. Continue the cholestyramine to maintain stool consistency. 3. Nonalcoholic liver cirrhosis. Abdominal ultrasound completed showing moderate abdominal ascites likely on basis process. Discussed case with oncology services. No paracentesis required at this time. GI consult has been placed for ongoing abdominal pain. 4. Diverticulitis with history of bowel perforation and ileostomy placement. GI services have been consulted 5. Leukopenia likely related to her recent acute infections and underlying liver disease 6. Thrombocytopenia chronic. Secondary to underlying liver cirrhosis 7. Chronic Normocytic anemia secondary to liver cirrhosis and malignancy. Oncology following 8. Hyperkalemia. Potassium 5.5. Will give 1 dose kayexlate ordered recheck potassium today. We'll also place patient on low potassium diet. potassium 4.7. 9. Increased abdominal pain with nausea. Patient underwent paracentesis with 1.5 L off. Per surgical services no surgical intervention planned. 10. Diabetes mellitus . Hemoglobin A1c 7.1. continue sliding scale added GI prophylaxis Protonix. DVT prophylaxis SCDs due to thrombocytopenia Patient currently on MS Contin and Roxanol for pain control. Pain services have been consulted per oncology services. Anticipate discharge in the next 24-48 hours I performed an examination of the patient and discussed their management with the Nurse Practitioner. I have reviewed the Nurse Practitioner's notes and agree with the documented findings and plan of care
--- NOTE | 2018-11-21 15:03 | P.PN ---
Progress Note - Text Progress Note Date: 11/21/18 The patient states she feels slightly better. She has less pain at her colostomy site. On exam her vital signs are stable. Her abdomen is soft. There is minimal distention. There is some mild pain throughout. There is no rebound or guarding. Chronic abdominal pain. Patient will be conservatively treated. No surgical intervention is planned.
[2018-11-21 17:17] LABS: Glucose,Whole Blood 195 mg/dL (75-99)
[2018-11-21 20:32] LABS: Glucose,Whole Blood 133 mg/dL (75-99)
--- NOTE | 2018-11-21 21:36 | P.PN ---
Subjective Progress Note Date: 11/21/18 Principal diagnosis: Liver cancer, abdominal pain Patient continues to tolerate diet. Abdominal pain improves, however still complaining of some peristomal pain. Output from ostomy remains good. Objective - Vital Signs Vital signs: Vital Signs Temp 97.8 F 11/21/18 12:28 Pulse 61 11/21/18 12:28 Resp 20 11/21/18 12:28 BP 104/56 11/21/18 12:28 Pulse Ox 100 11/21/18 12:28 Intake & Output 11/21/18 11/21/18 11/22/18 06:59 18:59 06:59 Intake Total 120 Balance 120 Intake: Oral 120 Other: Voiding Method Toilet Toilet Diaper Diaper # Voids 2 2 - Exam On physical examination, patient appears comfortable in no apparent distress. HEAD: Normocephalic, atraumatic. EYES: No scleral icterus. No conjunctival injection. MOUTH: No lesions, tongue midline. NECK: Trachea midline, no gross abnormalities. CHEST: Clear to auscultation with no wheezing or rhonchi appreciated. HEART: Regular rate and rhythm. ABDOMEN: Soft, obese, stoma intact with good output. Bowel sounds are positive. No organomegaly. No guarding or rigidity. EXTREMITIES: No pedal edema. SKIN: No rashes, no jaundice. NEUROLOGIC: Alert and oriented x3. No focal deficits. - Labs CBC & Chem 7: 11/21/18 08:02 11/21/18 08:02 Labs: Abnormal Lab Results - Last 24 Hours (Table) 11/21/18 11/21/18 11/21/18 Range/Units 07:06 08:02 08:02 RBC 3.29 L (3.80-5.40) m/uL Hgb 9.8 L (11.4-16.0) gm/dL Hct 31.4 L (34.0-46.0) % RDW 17.3 H (11.5-15.5) % Plt Count 71 L (150-450) k/uL Lymphocytes # (Manual) 0.94 L (1.0-4.8) k/uL Chloride 110 H (98-107) mmol/L Glucose 100 H (74-99) mg/dL POC Glucose (mg/dL) 109 H (75-99) mg/dL Calcium 8.1 L (8.4-10.2) mg/dL Total Bilirubin 1.6 H (0.2-1.3) mg/dL AST 37 H (14-36) U/L Alkaline Phosphatase 195 H (38-126) U/L Total Protein 6.0 L (6.3-8.2) g/dL Albumin 2.4 L (3.5-5.0) g/dL 11/21/18 11/21/18 11/21/18 Range/Units 11:34 17:15 20:31 RBC (3.80-5.40) m/uL Hgb (11.4-16.0) gm/dL Hct (34.0-46.0) % RDW (11.5-15.5) % Plt Count (150-450) k/uL Lymphocytes # (Manual) (1.0-4.8) k/uL Chloride (98-107) mmol/L Glucose (74-99) mg/dL POC Glucose (mg/dL) 123 H 195 H 133 H (75-99) mg/dL Calcium (8.4-10.2) mg/dL Total Bilirubin (0.2-1.3) mg/dL AST (14-36) U/L Alkaline Phosphatase (38-126) U/L Total Protein (6.3-8.2) g/dL Albumin (3.5-5.0) g/dL Assessment and Plan (1) Abdominal pain Narrative/Plan: Patient with complaints of peristomal abdominal pain, improved since admission but still present. Surgical service has evaluated the patient with no intervention planned. Plan is for consultation by pain management. Current Visit: Yes Status: Acute Priority: High Code(s): R10.9 - UNSPECIFIED ABDOMINAL PAIN SNOMED Code(s): 53541311 (2) History of liver cancer Current Visit: Yes Status: Acute Code(s): Z85.05 - PERSONAL HISTORY OF MALIGNANT NEOPLASM OF LIVER SNOMED Code(s): 166608558 (3) Peristomal hernia Current Visit: Yes Status: Acute Code(s): K46.9 - UNSPECIFIED ABDOMINAL HERNIA WITHOUT OBSTRUCTION OR GANGRENE SNOMED Code(s): 97823665 Plan: Supportive care Okay for diet Appreciate surgical recommendations Await recommendations from pain management No plan for endoscopic evaluation Thank you for allowing us to participate in the care of this patient, the gastroenterology service will stand by, please feel free to call us back with questions or concerns
[2018-11-21] MEDS: PREGABALIN 25 MG CAP PO SCH (21:49)
[2018-11-21 22:59] VITALS: RESP 16
[2018-11-22] MEDS: MORPHINE CONC SOLN 10mg/0.5mL ORAL SYRG PO PRN ×2 (01:46→08:10)
[2018-11-22] MEDS: MORPHINE SULFATE ER 15 MG TABLET PO SCH ×2 (05:03→13:15)
[2018-11-22 05:37] VITALS: BP 144/77; PULSE 102; TEMP 98.6
--- NOTE | 2018-11-22 06:49 | P.PAINCN ---
History of Present Illness - Reason for Consult Consult date: 11/21/18 - History of Present Illness This is a 73 years old female, with a complicated medical history, and she had hepatocellular carcinoma, with colostomy, done several years ago, patient was admitted to , and she was complaining of severe right -sided abdominal pain at the location of the colostomy site, patient was evaluated by surgical services, and found out that the stoma is functioning well , and there is no infection at the stoma site, and patient had perstomal hernia , patient is not a surgical candidate , and she is currently on MS Contin 15 mg 3 times a day , and she reported that the current medication is not helping to control her pain , patient tolerating the diet well , and she had no nausea vomiting . Past Medical History Past Medical History: Cancer, Diabetes Mellitus, Hypertension, Liver Disease Additional Past Medical History / Comment(s): liver ca- had chemo 10-03-18,past ascities-paracentesis, ( ulcer(sx),diveticulitis anx/depression History of Any Multi-Drug Resistant Organisms: MRSA Year Discovered:: 10/23/18 MDRO Source:: MRSA STOOL Past Surgical History: Appendectomy, Bowel Resection, Section, Cholecystectomy, Hysterectomy, Tonsillectomy Additional Past Surgical History / Comment(s): rt rotator cuff repair,carpal tunnel release .liver bx,ilieostomy ,11-02-18 had paracentesis. Multiple chemo embolizations of liver tumors Past Anesthesia/Blood Transfusion Reactions: No Reported Reaction Additional Psychological History / Comment(s): Reformed smoker. . Retired. No experience. No animal exposures Smoking Status: Former smoker - Past Family History Mother History Unknown: Yes Family Medical History: Congestive Heart Failure (CHF) Medications and Allergies Home Medications Medication Instructions Recorded Confirmed Type Dicyclomine [Bentyl] 10 mg PO TID 10/23/18 11/11/18 History Furosemide [Lasix] 40 mg PO DAILY 10/23/18 11/11/18 History Omeprazole [PriLOSEC] 20 mg PO BID 10/23/18 11/11/18 History Sucralfate [Carafate] 1 gm PO QID 10/23/18 11/11/18 History Aspirin EC [Ecotrin Low Dose] 81 mg PO DAILY 10/24/18 11/11/18 History Insulin NPH Human Isophane 18 unit SQ BID 10/24/18 11/11/18 History [NovoLIN N] Insulin Regular, Human [NovoLIN R] 8 unit SQ AC-TID 10/24/18 11/11/18 History Magnesium 200 mg PO DAILY 10/24/18 11/11/18 History Metoprolol Tartrate 12.5 mg PO DAILY 10/24/18 11/11/18 History Morphine Sulfate ER [Ms Contin] 15 mg PO Q12HR 10/24/18 11/11/18 History Ondansetron [Zofran ODT] 8 mg PO Q8HR 10/24/18 11/11/18 History Nystatin 100,000 Unit/ml Susp 500,000 unit PO QID #12 cup 11/03/18 11/11/18 Rx [Mycostatin Oral Susp] Vancomycin HCl [Vancocin HCl] 250 mg PO Q6HR 7 Days #28 capsule 11/03/18 Rx clonazePAM [KlonoPIN] 0.5 mg PO DAILY tab 11/03/18 11/11/18 Rx Cholestyramine (with Sugar) 4 gm PO TID #21 packet 11/04/18 11/11/18 Rx [Questran] Allergies Allergy/AdvReac Type Severity Reaction Status Date / Time GREG Inhibitors Allergy Cough Verified 11/11/18 13:18 amlodipine Allergy Rash/Hives Verified 11/11/18 13:18 oxycodone Allergy Rash/Hives Verified 11/11/18 13:18 Penicillins Allergy Rash/Hives Verified 11/11/18 13:18 hydromorphone [From Dilaudid] AdvReac Unknown Verified 11/11/18 13:18 sodium dodecyclbenzene Allergy Rash/Hives Uncoded 11/11/18 13:05 sulfonate Physical Exam Vitals: Vital Signs Temp Pulse Resp BP BP BP Pulse Ox 11/22/18 05:00 98.6 F 102 H 16 144/77 99 11/21/18 21:00 98.5 F 63 16 113/65 92/38 98 11/21/18 12:28 97.8 F 61 20 104/56 100 11/21/18 08:00 120/74 Intake and Output 11/21/18 11/21/18 11/22/18 14:59 22:59 06:59 Intake Total 1590 880 Balance 1590 880 Intake: Oral 1590 880 Other: Voiding Method Toilet Toilet Diaper # Voids 2 3 2 # Bowel Movements 2 2 Physical Examinations : 1-Constitutional : Cooperative , not in acute distress . 2-HEENT : nech ; supple , no Lymphadenopathy , no Thyromegaly , :eyes , no icterus, no photophobia . ENT : , normal oropharynx , no Thrush 3- Respiratory : Chest clear to auscultations Bilaterally , no wheezing . 4- Cardiovascular : regular rate and rhythem , S1 , S2 , no S3 , no S4. 5- Gastrointestinal: abdomen soft, the stoma site looked okay and no sign of inflammation, there is stool in the stoma pocket 6- Genitourinary : Defferred . 7-Integumentary : No cellulitis , no ulcers , normal skin turgor , no cyanotic . 8- neurologic : Cranial nerve II to XII intact , no focal neurological deffecit 9-psychatric : alert , oriented X 3 , appropriate affect , intact judgment and insight . 10-Lymphatic : no Lymphadenopathy. 11- musculoskeltal: Normal motor strength Results CBC & Chem 7: 11/21/18 08:02 11/21/18 08:02 Labs: Abnormal Lab Results - Last 24 Hours (Table) 11/21/18 11/21/18 11/21/18 Range/Units 07:06 08:02 08:02 RBC 3.29 L (3.80-5.40) m/uL Hgb 9.8 L (11.4-16.0) gm/dL Hct 31.4 L (34.0-46.0) % RDW 17.3 H (11.5-15.5) % Plt Count 71 L (150-450) k/uL Lymphocytes # (Manual) 0.94 L (1.0-4.8) k/uL Chloride 110 H (98-107) mmol/L Glucose 100 H (74-99) mg/dL POC Glucose (mg/dL) 109 H (75-99) mg/dL Calcium 8.1 L (8.4-10.2) mg/dL Total Bilirubin 1.6 H (0.2-1.3) mg/dL AST 37 H (14-36) U/L Alkaline Phosphatase 195 H (38-126) U/L Total Protein 6.0 L (6.3-8.2) g/dL Albumin 2.4 L (3.5-5.0) g/dL 11/21/18 11/21/18 11/21/18 Range/Units 11:34 17:15 20:31 RBC (3.80-5.40) m/uL Hgb (11.4-16.0) gm/dL Hct (34.0-46.0) % RDW (11.5-15.5) % Plt Count (150-450) k/uL Lymphocytes # (Manual) (1.0-4.8) k/uL Chloride (98-107) mmol/L Glucose (74-99) mg/dL POC Glucose (mg/dL) 123 H 195 H 133 H (75-99) mg/dL Calcium (8.4-10.2) mg/dL Total Bilirubin (0.2-1.3) mg/dL AST (14-36) U/L Alkaline Phosphatase (38-126) U/L Total Protein (6.3-8.2) g/dL Albumin (3.5-5.0) g/dL Assessment and Plan Plan: Assessment and plan= abdominal pain peristomla , peristomal hernia , vision was evaluated by his surgical services under is no recommendation for any surgical intervention , the colostomy on the stomal functioning well and there is no sign of infection Patient currently on MS Contin 15 mg and patient continued to have pain , I recommend to continue MS Contin 15 mg every 8 hours and patient could benefit from Lyrica 15 mg every 8 hours, Patient is not a candidate for pain management interventions Time with Patient: Less than 30 PQRS Measure Charge Sheet PQRS Narrative: Smoking Status Former smoker Blood Pressure [Left Arm 144/77 Sitting] Blood Pressure [Left Arm 92/38 Supine] Blood Pressure [Left Arm] 104/56 Blood Pressure [Right Arm] 94/38 Blood Pressure 126/72 Pain Intensity [Abdomen] 5 Pain Intensity 4 Pain Scale Used Numeric (1 - 10) Scale Used Non Verbal Pain Indicator Home Medications: Ambulatory Orders Dicyclomine [Bentyl] 10 mg PO TID 10/23/18 Furosemide [Lasix] 40 mg PO DAILY 10/23/18 Omeprazole [PriLOSEC] 20 mg PO BID 10/23/18 Sucralfate [Carafate] 1 gm PO QID 10/23/18 Aspirin EC [Ecotrin Low Dose] 81 mg PO DAILY 10/24/18 Insulin NPH Human Isophane [NovoLIN N] 18 unit SQ BID 10/24/18 Insulin Regular, Human [NovoLIN R] 8 unit SQ AC-TID 10/24/18 Magnesium 200 mg PO DAILY 10/24/18 Metoprolol Tartrate 12.5 mg PO DAILY 10/24/18 Morphine Sulfate ER [Ms Contin] 15 mg PO Q12HR 10/24/18 Ondansetron [Zofran ODT] 8 mg PO Q8HR 10/24/18 Nystatin 100,000 Unit/ml Susp [Mycostatin Oral Susp] 500,000 unit PO QID #12 cup 11/03/18 Vancomycin HCl [Vancocin HCl] 250 mg PO Q6HR 7 Days #28 capsule 11/03/18 clonazePAM [KlonoPIN] 0.5 mg PO DAILY tab 11/03/18 Cholestyramine (with Sugar) [Questran] 4 gm PO TID #21 packet 11/04/18
[2018-11-22 07:18] LABS: Glucose,Whole Blood 80 mg/dL (75-99)
[2018-11-22] MEDS: INSULIN ASPART 100 UNIT/ML 1 ML 10 ML VIAL SQ SCH ×2 (07:56→11:26)
[2018-11-22] MEDS: METOPROLOL TARTRATE 12.5 MG TAB PO SCH (08:03)
[2018-11-22] MEDS: MAGNESIUM OXIDE 400 MG TAB PO SCH (08:03)
[2018-11-22] MEDS: clonazePAM 0.5 MG TAB PO SCH (08:03)
[2018-11-22] MEDS: PANTOPRAZOLE 40 MG TABLET PO SCH (08:03)
[2018-11-22] MEDS: SUCRALFATE 1 GM TAB PO SCH ×2 (08:03→13:15)
[2018-11-22] MEDS: NYSTATIN 100,000 UNIT/ML SUSP 500,000 UNIT/5 ML CUP PO SCH ×2 (08:03→13:16)
[2018-11-22] MEDS: FUROSEMIDE 40 MG TAB PO SCH (08:03)
[2018-11-22] MEDS: PREGABALIN 25 MG CAP PO SCH (08:03)
[2018-11-22] MEDS: DICYCLOMINE 10 MG CAP PO SCH (08:04)
[2018-11-22] MEDS: INSULIN NPH 300 UNIT/3 ML VIAL SQ SCH (08:07)
[2018-11-22] MEDS: CHOLESTYRAMINE (WITH SUGAR) 4 GM PACKET PO SCH (09:35)
[2018-11-22 09:51] LABS: Albumin 2.6 g/dL (3.5-5.0); Potassium 4.8 mmol/L (3.5-5.1); Total Bilirubin 1.7 mg/dL (0.2-1.3); Total Protein 6.5 g/dL (6.3-8.2)
[2018-11-22 10:13] LABS: Anisocytosis Slight; HCT 34.2 % (34.0-46.0); HGB 10.7 gm/dL (11.4-16.0); Hypochromasia Marked; MCH 30.2 pg (25.0-35.0); MCHC 31.3 g/dL (31.0-37.0); MCV 96.4 fL (80.0-100.0); Macrocytosis Slight; Mean Platelet Volume 9.5; RBC 3.55 m/uL (3.80-5.40); RDW 17.2 % (11.5-15.5); WBC 5.2 k/uL (3.8-10.6)
[2018-11-22 10:23] LABS: Platelet Count 98 k/uL (150-450)
[2018-11-22 11:21] LABS: Glucose,Whole Blood 120 mg/dL (75-99)
[2018-11-22 12:45] LABS: Basophils # (M) 0.05 k/uL (0-0.2); Lymphocytes # (M) 1.46 k/uL (1.0-4.8); Monocytes # (M) 0.78 k/uL (0-1.0); Neutrophils # (M) 2.91 k/uL (1.3-7.7); Neutrophils % (M) 56 %; Nucleated Red Blood Cells 0 /100 WBC (0-0); Total Cells Counted 100
--- NOTE | 2018-11-22 13:12 | P.DS ---
Providers Date of admission: 11/11/18 18:31 Expected date of discharge: 11/22/18 Attending physician: Artemio Lea Consults: 11/18/18 14:07 Consult Physician Routine Consulting Provider: [place] Zhang Consult Reason/Comments: stoma site pain Do you want consulting provider notified?: Already Contacted 11/11/18 18:01 Consult Physician Routine Consulting Provider: Ryland Hernandez Consult Reason/Comments: Intractable abdominal pain; Liver cancer Do you want consulting provider notified?: Already Contacted 11/13/18 11:17 Consult Physician Routine Consulting Provider: Severiano Posey Consult Reason/Comments: infection in stool Do you want consulting provider notified?: Yes Primary care physician: Gilma Martinez Hospital Course: Hospital course 1. Hepatocellular carcinoma with moderate ascites noted on ultrasound. Await oncology further recommendations. Continue with MS Contin 15 mg by mouth every 8 hours and IV morphine as needed for pain control. Await further recommendations per oncology. Patient has required paracentesis in the past. Per oncology service is recommending GI consult due to pain not consistent with cancer workup. Per oncology patient also advised to follow-up with oncology service to establish patient provider relationship 2. Colonization with MRSA. Patient treated with oral vancomycin. Per ID no further active infection. Continue the cholestyramine to maintain stool consistency. Per infectious disease no need for antibiotics 3. Nonalcoholic liver cirrhosis. Abdominal ultrasound completed showing moderate abdominal ascites likely on basis process. Discussed case with oncology services. No paracentesis required at this time. GI consult has been placed for ongoing abdominal pain. 4. Diverticulitis with history of bowel perforation and ileostomy placement. GI services have been consulted 5. Leukopenia likely related to her recent acute infections and underlying liver disease 6. Thrombocytopenia chronic. Secondary to underlying liver cirrhosis 7. Chronic Normocytic anemia secondary to liver cirrhosis and malignancy. Oncology following 8. Hyperkalemia. Potassium 5.5. Will give 1 dose kayexlate ordered recheck potassium today. We'll also place patient on low potassium diet. potassium 4.7. 9. Increased abdominal pain with nausea. Patient underwent paracentesis with 1.5 L off. Per surgical services no surgical intervention planned. Patient seen by pain services. We are, has been added 10. Diabetes mellitus . Hemoglobin A1c 7.1. continue sliding scale added. Home meds resumed upon discharge patient advised to follow up with PCP Discharge diagnosis 11/14/2018 this patient has a history of hepatocellular carcinoma. She presented to the hospital with intractable abdominal pain. Is followed closely by oncology. They have increased her MS Contin to 15 mg by mouth every 8 hours as well as she is getting IV morphine. Oncology has ordered abdominal ultrasound which is showing a moderate amount of ascites. White count has improved from 2.9-4.6 hemoglobin 9.5 up to 11 and platelets 90 06/15/2019. Awaiting further oncology recommendations regarding a possible paracentesis as well as further pain control. Per ID patient needs no further antibiotic coverage she completed oral Vanco treatment for MRSA in the colon. He also ruled out for UTI. A1c 7.1. Patient still reporting abdominal pain. However, MS Contin frequency change has helped. She denies any chest pain or shortness of breath. Denies any nausea or vomiting. Reports having regular bowel movements. Denies any difficulty with urinating. On 11/15/2018 patient is currently resting comfortably in bed. Potassium elevated at 5.5. Will order 1 dose of Kayexalate and put patient on Lopressor potassium diet. Patient denies chest pain or shortness of breath. Patient denies nausea vomiting or diarrhea. Patient denies any urinary burning or frequency. Awaiting oncology recommendation for possible paracentesis. On 11/16/2018 patient is currently resting bed. Patient still complaining of abdominal discomfort. Oncology service is currently at bedside recommending possible GI consult for further investigation with EGD or colonoscopy. Potassium improved to 4.6. At this time patient denies chest pain or shortness breath. Patient denies nausea vomiting or diarrhea. Patient denies any urinary burning or frequency On 11/17/2018 patient is alert and oriented 3 resting comfortably in bed. Patient still complaining of some abdominal pain around the stoma site. GI services have been consulted. Pain adequately controlled at this time. This time patient denies chest pain or shortness of breath. Patient denies nausea vomiting or diarrhea. Patient denies any urinary burning or frequency. On 11/18/2018 patient is alert and oriented 3. Discussed case with GI services. Possible paracentesis due to increased abdominal pain. No plans for inpatient scope at this time. Patient denies chest pain or shortness of breath. Patient denies nausea vomiting or diarrhea. Patient denies any urinary burning or frequency On 11/19/2018 patient was seen and examined on the medical floor she is alert and oriented 3 this morning she had an episode of severe abdominal pain currently she is off IV pain medications and is maintained on long-acting morphine and short-acting Roxanol she stated that her pain is not well controlled dose of Roxanol will be increased to 10 mg by mouth every 3 hours as needed he was evaluated by surgery no surgical intervention was recommended at this time otherwise she denies any complaints there is no fever or chills no headache or dizziness no chest pain no shortness of breath no cough no nausea or vomiting and no urinary symptoms. On 11/20/2018 agent was seen and examined on the medical floor she is alert and oriented 3 in no apparent distress pain is better controlled today there is no fever or chills no headache or dizziness no chest pain no shortness of breath no cough no nausea or vomiting and no urinary symptoms On 11/21/2018 patient is alert and oriented 3. Patient did state she has some abdominal pain throughout night. Patient denies chest pain or shortness breath. Patient denies any nausea vomiting or diarrhea. Patient denies any urinary burning or frequency. Pain services have been consulted per oncology service is On 11/22/2018 patient is alert and oriented 3. Patient's abdominal pain is slightly improved. Patient was seen by pain services Lyrica 15 mg has been added. Discussed case with oncology service is patient has appointment to follow-up on 11/25/2018. Will give 3 day prescription pain medications. Educated patient on the importance of following up with consulting providers and primary care providers. Patient understands that she will only get a 3 day prescription of her pain medications at this time. Also discussed with infectious disease. Patient does not require any further antibiotics. At this time patient denies chest pain or shortness of breath. Patient denies nausea vomiting or diarrhea. Patient denies any urinary burning or frequency. I performed an examination of the patient and discussed their management with the Nurse Practitioner. I have reviewed the Nurse Practitioner's notes and agree with the documented findings and plan of care Patient Condition at Discharge: Stable Plan - Discharge Summary Discharge Rx Participant: No New Discharge Prescriptions: New Morphine Sulfate ER [Ms Contin] 15 mg PO Q8H #9 tablet Pregabalin [Lyrica] 25 mg PO TID #9 cap Continue Sucralfate [Carafate] 1 gm PO QID Omeprazole [PriLOSEC] 20 mg PO BID Furosemide [Lasix] 40 mg PO DAILY Dicyclomine [Bentyl] 10 mg PO TID Ondansetron [Zofran ODT] 8 mg PO Q8HR Magnesium 200 mg PO DAILY Metoprolol Tartrate 12.5 mg PO DAILY Insulin Regular, Human [NovoLIN R] 8 unit SQ AC-TID Insulin NPH Human Isophane [NovoLIN N] 18 unit SQ BID clonazePAM [KlonoPIN] 0.5 mg PO DAILY tab Nystatin 100,000 Unit/ml Susp [Mycostatin Oral Susp] 500,000 unit PO QID #12 cup Cholestyramine (with Sugar) [Questran Packet] 4 gm PO TID #21 packet Discontinued Aspirin EC [Ecotrin Low Dose] 81 mg PO DAILY Morphine Sulfate ER [Ms Contin] 15 mg PO Q12HR Vancomycin HCl [Vancocin HCl] 250 mg PO Q6HR 7 Days #28 capsule Discharge Medication List Dicyclomine [Bentyl] 10 mg PO TID 10/23/18 [History] Furosemide [Lasix] 40 mg PO DAILY 10/23/18 [History] Omeprazole [PriLOSEC] 20 mg PO BID 10/23/18 [History] Sucralfate [Carafate] 1 gm PO QID 10/23/18 [History] Insulin NPH Human Isophane [NovoLIN N] 18 unit SQ BID 10/24/18 [History] Insulin Regular, Human [NovoLIN R] 8 unit SQ AC-TID 10/24/18 [History] Magnesium 200 mg PO DAILY 10/24/18 [History] Metoprolol Tartrate 12.5 mg PO DAILY 10/24/18 [History] Ondansetron [Zofran ODT] 8 mg PO Q8HR 10/24/18 [History] Nystatin 100,000 Unit/ml Susp [Mycostatin Oral Susp] 500,000 unit PO QID #12 cup 11/03/18 [Rx] clonazePAM [KlonoPIN] 0.5 mg PO DAILY tab 11/03/18 [Rx] Cholestyramine (with Sugar) [Questran Packet] 4 gm PO TID #21 packet 11/04/18 [ Rx] Morphine Sulfate ER [Ms Contin] 15 mg PO Q8H #9 tablet 11/22/18 [Rx] Pregabalin [Lyrica] 25 mg PO TID #9 cap 11/22/18 [Rx] Follow up Appointment(s)/Referral(s): Gilma Martinez MD [Primary Care Provider] - 1-2 days Viri Yadav MD [STAFF PHYSICIAN] - 12/05/18 3:15 pm (This is appt to see Doctor. If pt needs narcotic prescriptions please contact office and make appt with [employer] who will establish care and provide pt with Rx until she is seen by Physician) Discharge Disposition: HOME SELF-CARE
--- NOTE | 2018-11-22 13:20 | P.PN ---
Subjective Progress Note Date: 11/22/18 Principal diagnosis: intractable abd pain Pt seen in f/u today. She has been evaluated by gastroenterology with paracentesis, no pain relief, been evaluated by surgery, no surgical intervention, finally, she has been seen by pain management. After their assessment they initiated Lyrica. When I entered the room patient was standing at bedside table using incentive spirometry, still complaining of jo-stomal pain. Patient denies fevers, she is eating and drinking, no nausea, output from ostomy is soft/semi-solid stool. Objective - Vital Signs Vital signs: Vital Signs Temp 98.6 F 11/22/18 05:00 Pulse 102 H 11/22/18 05:00 Resp 16 11/22/18 05:00 BP 144/77 11/22/18 05:00 Pulse Ox 99 11/22/18 05:00 Intake & Output 11/21/18 11/22/18 11/22/18 18:59 06:59 18:59 Intake Total 2470 Balance 2470 Intake: Oral 2470 Other: Voiding Method Toilet Toilet Diaper # Voids 2 2 # Bowel Movements 2 - Exam alert and oriented, in no acute distress, respirations even and unlabored, patient is independently ambulatory - Constitutional General appearance: Present: cooperative, no acute distress, obese - EENT Eyes: Present: EOMI - Labs CBC & Chem 7: 11/22/18 09:16 11/22/18 09:16 Labs: Abnormal Lab Results - Last 24 Hours (Table) 11/21/18 11/21/18 11/22/18 Range/Units 17:15 20:31 09:16 RBC 3.55 L (3.80-5.40) m/uL Hgb 10.7 L (11.4-16.0) gm/dL RDW 17.2 H (11.5-15.5) % Plt Count 98 L (150-450) k/uL Sodium (137-145) mmol/L Chloride (98-107) mmol/L Carbon Dioxide (22-30) mmol/L Glucose (74-99) mg/dL POC Glucose (mg/dL) 195 H 133 H (75-99) mg/dL Calcium (8.4-10.2) mg/dL Total Bilirubin (0.2-1.3) mg/dL AST (14-36) U/L Alkaline Phosphatase (38-126) U/L Albumin (3.5-5.0) g/dL 11/22/18 11/22/18 Range/Units 09:16 11:16 RBC (3.80-5.40) m/uL Hgb (11.4-16.0) gm/dL RDW (11.5-15.5) % Plt Count (150-450) k/uL Sodium 136 L (137-145) mmol/L Chloride 108 H (98-107) mmol/L Carbon Dioxide 21 L (22-30) mmol/L Glucose 138 H (74-99) mg/dL POC Glucose (mg/dL) 120 H (75-99) mg/dL Calcium 8.0 L (8.4-10.2) mg/dL Total Bilirubin 1.7 H (0.2-1.3) mg/dL AST 47 H (14-36) U/L Alkaline Phosphatase 174 H (38-126) U/L Albumin 2.6 L (3.5-5.0) g/dL Assessment and Plan (1) Abdominal pain Narrative/Plan: Patient's abdominal pain is been worked up extensively, with no acutely treatable cause identified. Pt will continue MS contin Q8 hours and Roxanol Q 4 hours PRN. Lyrica has been added from Pain Mgmt. Patient has an appointment scheduled on the for follow-up with [facility] [facility] at Dr. Yadav's office. This is to establish a patient/provider relationship, review the start talking miky regards to opioid prescribing and run MAPS so patient can receive narcotic prescriptions. Patient is aware that she must establish a relationship prior to obtaining an opioid Rx greater than 3 days. She did verbalize understanding Current Visit: Yes Status: Acute Priority: High Code(s): R10.9 - UNSPECIFIED ABDOMINAL PAIN SNOMED Code(s): 44855595 (2) Nausea with vomiting, unspecified Current Visit: Yes Status: Resolved Priority: High Code(s): R11.2 - NAUSEA WITH VOMITING, UNSPECIFIED SNOMED Code(s): 27154737 (3) Hepatocellular carcinoma Narrative/Plan: F/U appt with Dr. Yadav on the to discuss treatment for hepatocellular carcinoma Current Visit: No Status: Chronic Priority: Medium Code(s): C22.0 - LIVER CELL CARCINOMA SNOMED Code(s): 287784574
== END 2018-11-22 15:30 | disposition home or self-care (01) | DRG 436 ==
LOC: EC 13:01 → 3NMEDONC 18:31
PROVIDERS: ADMIT Internal Medicine; ATTEND Internal Medicine
PROC: 0W9G3ZZ Drainage of Peritoneal Cavity, Percutaneous Approach (ICD-10-PCS; principal; 2018-11-18)
DX: C22.0 Liver cell carcinoma (principal); K76.6 Portal hypertension; A04.72 Enterocolitis due to Clostridium difficile, not specified as recurrent; R18.8 Other ascites; E66.01 Morbid (severe) obesity due to excess calories; D69.6 Thrombocytopenia, unspecified; E87.5 Hyperkalemia; K74.60 Unspecified cirrhosis of liver; D63.0 Anemia in neoplastic disease; D72.819 Decreased white blood cell count, unspecified; K43.5 Parastomal hernia without obstruction or gangrene; E11.9 Type 2 diabetes mellitus without complications; G89.29 Other chronic pain; I10 Essential (primary) hypertension; F41.9 Anxiety disorder, unspecified; Z68.29 Body mass index [BMI] 29.0-29.9, adult; Z71.3 Dietary counseling and surveillance; Z93.2 Ileostomy status; Z79.82 Long term (current) use of aspirin; Z79.4 Long term (current) use of insulin; Z79.891 Long term (current) use of opiate analgesic; Z79.899 Other long term (current) drug therapy; Z90.710 Acquired absence of both cervix and uterus; Z98.891 History of uterine scar from previous surgery; Z92.21 Personal history of antineoplastic chemotherapy; Z87.891 Personal history of nicotine dependence; Z90.49 Acquired absence of other specified parts of digestive tract; Z86.59 Personal history of other mental and behavioral disorders; Z22.322 Carrier or suspected carrier of Methicillin resistant Staphylococcus aureus; Z87.440 Personal history of urinary (tract) infections; Z88.5 Allergy status to narcotic agent; Z88.0 Allergy status to penicillin; Z88.8 Allergy status to other drugs, medicaments and biological substances; Z82.49 Family history of ischemic heart disease and other diseases of the circulatory system
CPT/HCPCS: 36415; 49083; 74018; 74176; 76705; 80053; 81001; 82150; 83036; 83605; 83690; 84132; 85025; 85610; 87086; 96361; 96374; 96375; 96376; 99285

== ENCOUNTER 2018-11-26 14:38 | Inpatient (IN) | payer MEDICARE ==
--- NOTE | 2018-11-26 15:48 | ED ---
Extremity Problem HPI - General Chief complaint: Extremity Problem,Nontraumatic Stated complaint: Edema Time Seen by Provider: 11/26/18 15:26 Source: patient Mode of arrival: wheelchair Limitations: no limitations - History of Present Illness Initial comments: This a 73-year-old female history of liver cancer who presents with complaints of pain and swelling to her extremities and upper abdomen. States she has liver cancer she denies any shortness breath cough fevers chills nausea vomiting sweats just pain and swelling. Is getting worse is been going on over last 2 days especially. She does states she has low platelets she has no other complaints no spontaneous bleeding or bruising reported. MD Complaint: extremity pain, extremity swelling - Related Data Home Medications Medication Instructions Recorded Confirmed Dicyclomine [Bentyl] 10 mg PO TID 10/23/18 11/26/18 Furosemide [Lasix] 40 mg PO DAILY 10/23/18 11/26/18 Omeprazole [PriLOSEC] 20 mg PO BID 10/23/18 11/26/18 Sucralfate [Carafate] 1 gm PO QID 10/23/18 11/26/18 Insulin NPH Human Isophane 18 unit SQ BID 10/24/18 11/26/18 [NovoLIN N] Insulin Regular, Human [NovoLIN R] 8 unit SQ AC-TID 10/24/18 11/26/18 Magnesium 200 mg PO DAILY 10/24/18 11/26/18 Metoprolol Tartrate 12.5 mg PO DAILY 10/24/18 11/26/18 Ondansetron [Zofran ODT] 8 mg PO Q8HR 10/24/18 11/26/18 Previous Rx's Medication Instructions Recorded Nystatin 100,000 Unit/ml Susp 500,000 unit PO QID #12 cup 11/03/18 [Mycostatin Oral Susp] clonazePAM [KlonoPIN] 0.5 mg PO DAILY tab 11/03/18 Cholestyramine (with Sugar) 4 gm PO TID #21 packet 11/04/18 [Questran Packet] Morphine Sulfate ER [Ms Contin] 15 mg PO Q8H #9 tablet 11/22/18 Pregabalin [Lyrica] 25 mg PO TID #9 cap 11/22/18 Allergies Allergy/AdvReac Type Severity Reaction Status Date / Time GREG Inhibitors Allergy Cough Verified 11/26/18 16:07 amlodipine Allergy Rash/Hives Verified 11/26/18 16:07 oxycodone Allergy Rash/Hives Verified 11/26/18 16:07 Penicillins Allergy Rash/Hives Verified 11/26/18 16:07 hydromorphone [From Dilaudid] AdvReac Unknown Verified 11/26/18 16:07 sodium dodecyclbenzene Allergy Rash/Hives Uncoded 11/26/18 14:57 sulfonate Review of Systems ROS Statement: Those systems with pertinent positive or pertinent negative responses have been documented in the HPI. ROS Other: All systems not noted in ROS Statement are negative. Past Medical History Past Medical History: Cancer, Diabetes Mellitus, Hypertension, Liver Disease Additional Past Medical History / Comment(s): liver ca- had chemo 10-03-18,past ascities-paracentesis, ( ulcer(sx),diveticulitis anx/depression History of Any Multi-Drug Resistant Organisms: MRSA Date of last positivie culture/infection: 10/23/18 MDRO Source:: MRSA STOOL Past Surgical History: Appendectomy, Bowel Resection, Section, Cholecystectomy, Hysterectomy, Tonsillectomy Additional Past Surgical History / Comment(s): rt rotator cuff repair,carpal tunnel release .liver bx,ilieostomy ,11-02-18 had paracentesis. Multiple chemo embolizations of liver tumors Past Anesthesia/Blood Transfusion Reactions: No Reported Reaction Past Psychological History: Anxiety, Depression Smoking Status: Former smoker Past Alcohol Use History: None Reported Past Drug Use History: None Reported - Past Family History Mother History Unknown: Yes Family Medical History: Congestive Heart Failure (CHF) General Exam - General Exam Comments Initial Comments: Is a well-developed well-nourished awake alert female Limitations: no limitations General appearance: alert, anxious Head exam: Present: atraumatic, normocephalic, normal inspection Eye exam: Present: normal appearance, PERRL, EOMI. Absent: scleral icterus, conjunctival injection, periorbital swelling ENT exam: Present: normal exam, mucous membranes moist Neck exam: Present: normal inspection. Absent: tenderness, meningismus, lymphadenopathy Respiratory exam: Present: normal lung sounds bilaterally. Absent: respiratory distress, wheezes, rales, rhonchi, stridor Cardiovascular Exam: Present: regular rate, normal rhythm, normal heart sounds. Absent: systolic murmur, diastolic murmur, rubs, gallop, clicks GI/Abdominal exam: Present: soft, distended, normal bowel sounds, other ( Evidence of hepatomegaly). Absent: tenderness, guarding, rebound, rigid, pulsatile mass Rectal exam: Present: deferred Extremities exam: Present: normal inspection, full ROM, normal capillary refill , pedal edema (Edema up to the groin and abdomen.). Absent: tenderness, joint swelling, calf tenderness Back exam: Present: normal inspection Neurological exam: Present: alert, oriented X3, CN II-XII intact Psychiatric exam: Present: normal affect, normal mood Skin exam: Present: warm, dry, intact, normal color. Absent: rash Course Vital Signs 11/26/18 11/26/18 11/26/18 14:54 16:53 18:00 Temperature 98.2 F Pulse Rate 64 64 63 Respiratory 18 15 16 Rate Blood Pressure 129/63 102/52 103/62 O2 Sat by Pulse 99 98 90 L Oximetry Medical Decision Making - Medical Decision Making I did discuss patient's findings with her. She is lower extremity edema in addition to hypokalemia hypomagnesemia. I did discuss case with Dr. Lea. The patient will be admitted for inpatient treatment. - Lab Data Result diagrams: 11/26/18 16:25 11/26/18 16:25 Lab Results 11/26/18 11/26/18 11/26/18 Range/Units 16:25 16:25 16:25 WBC (3.8-10.6) k/uL RBC (3.80-5.40) m/uL Hgb (11.4-16.0) gm/dL Hct (34.0-46.0) % MCV (80.0-100.0) fL MCH (25.0-35.0) pg MCHC (31.0-37.0) g/dL RDW (11.5-15.5) % Plt Count (150-450) k/uL Neutrophils % % Lymphocytes % % Monocytes % % Eosinophils % % Basophils % % Neutrophils # (1.3-7.7) k/uL Lymphocytes # (1.0-4.8) k/uL Monocytes # (0-1.0) k/uL Eosinophils # (0-0.7) k/uL Basophils # (0-0.2) k/uL Manual Slide Review Hypochromasia Poikilocytosis Anisocytosis Sodium 139 (137-145) mmol/L Potassium 3.1 L (3.5-5.1) mmol/L Chloride 109 H (98-107) mmol/L Carbon Dioxide 23 (22-30) mmol/L Anion Gap 7 mmol/L BUN 11 (7-17) mg/dL Creatinine 0.81 (0.52-1.04) mg/dL Est GFR (CKD-EPI)AfAm 85 (>60 ml/min/1.73 sqM) Est GFR (CKD-EPI)NonAf 74 (>60 ml/min/1.73 sqM) Glucose 140 H (74-99) mg/dL Calcium 7.9 L (8.4-10.2) mg/dL Magnesium 1.5 L (1.6-2.3) mg/dL Total Bilirubin 1.9 H (0.2-1.3) mg/dL AST 52 H (14-36) U/L ALT 26 (9-52) U/L Alkaline Phosphatase 203 H (38-126) U/L Total Creatine Kinase 160 H (30-135) U/L CK-MB (CK-2) 2.1 (0.0-2.4) ng/mL CK-MB (CK-2) Rel Index 1.3 Troponin I 0.025 (0.000-0.034) ng/mL NT-Pro-B Natriuret Pep 461 pg/mL Total Protein 6.8 (6.3-8.2) g/dL Albumin 2.7 L (3.5-5.0) g/dL Amylase 33 (30-110) U/L Lipase 10 L (23-300) U/L Urine Color Urine Appearance (Clear) Urine pH (5.0-8.0) Ur Specific [place] (1.001-1.035) Urine Protein (Negative) Urine Glucose (UA) (Negative) Urine Ketones (Negative) Urine Blood (Negative) Urine Nitrite (Negative) Urine Bilirubin (Negative) Urine Urobilinogen (<2.0) mg/dL Ur Leukocyte Esterase (Negative) Urine RBC (0-5) /hpf Urine WBC (0-5) /hpf Ur Squamous Epith Cells (0-4) /hpf Urine Bacteria (None) /hpf Hyaline Casts (0-2) /lpf Urine Mucus (None) /hpf 11/26/18 11/26/18 Range/Units 16:25 16:30 WBC 4.2 (3.8-10.6) k/uL RBC 3.64 L (3.80-5.40) m/uL Hgb 10.5 L (11.4-16.0) gm/dL Hct 34.2 (34.0-46.0) % MCV 94.0 (80.0-100.0) fL MCH 28.8 (25.0-35.0) pg MCHC 30.6 L (31.0-37.0) g/dL RDW 17.7 H (11.5-15.5) % Plt Count 86 L (150-450) k/uL Neutrophils % 57 % Lymphocytes % 25 % Monocytes % 9 % Eosinophils % 6 % Basophils % 1 % Neutrophils # 2.4 (1.3-7.7) k/uL Lymphocytes # 1.1 (1.0-4.8) k/uL Monocytes # 0.4 (0-1.0) k/uL Eosinophils # 0.3 (0-0.7) k/uL Basophils # 0.0 (0-0.2) k/uL Manual Slide Review Performed Hypochromasia Moderate Poikilocytosis Slight Anisocytosis Slight Sodium (137-145) mmol/L Potassium (3.5-5.1) mmol/L Chloride (98-107) mmol/L Carbon Dioxide (22-30) mmol/L Anion Gap mmol/L BUN (7-17) mg/dL Creatinine (0.52-1.04) mg/dL Est GFR (CKD-EPI)AfAm (>60 ml/min/1.73 sqM) Est GFR (CKD-EPI)NonAf (>60 ml/min/1.73 sqM) Glucose (74-99) mg/dL Calcium (8.4-10.2) mg/dL Magnesium (1.6-2.3) mg/dL Total Bilirubin (0.2-1.3) mg/dL AST (14-36) U/L ALT (9-52) U/L Alkaline Phosphatase (38-126) U/L Total Creatine Kinase (30-135) U/L CK-MB (CK-2) (0.0-2.4) ng/mL CK-MB (CK-2) Rel Index Troponin I (0.000-0.034) ng/mL NT-Pro-B Natriuret Pep pg/mL Total Protein (6.3-8.2) g/dL Albumin (3.5-5.0) g/dL Amylase (30-110) U/L Lipase (23-300) U/L Urine Color Yellow Urine Appearance Cloudy H (Clear) Urine pH 5.0 (5.0-8.0) Ur Specific [place] 1.010 (1.001-1.035) Urine Protein Negative (Negative) Urine Glucose (UA) Negative (Negative) Urine Ketones Negative (Negative) Urine Blood Negative (Negative) Urine Nitrite Negative (Negative) Urine Bilirubin Negative (Negative) Urine Urobilinogen <2.0 (<2.0) mg/dL Ur Leukocyte Esterase Moderate H (Negative) Urine RBC 1 (0-5) /hpf Urine WBC 4 (0-5) /hpf Ur Squamous Epith Cells 3 (0-4) /hpf Urine Bacteria Many H (None) /hpf Hyaline Casts 23 H (0-2) /lpf Urine Mucus Rare H (None) /hpf - EKG Data -: EKG Interpreted by Me (Sinus rhythm 69. Interval 154 QRS duration 1:30 QT since QTC 452/484 right) - Radiology Data Radiology results: report reviewed (Did review the imaging no definite acute findings.), image reviewed Disposition Clinical Impression: Peripheral edema, Liver cancer, Hypokalemia, Hypomagnesemia Disposition: ADMITTED IP TO THIS HOSP Condition: Stable Referrals: Gilma Martinez MD [Primary Care Provider] - 1-2 days
[2018-11-26 16:50] LABS: Albumin 2.7 g/dL (3.5-5.0); Calcium 7.9 mg/dL (8.4-10.2); Magnesium 1.5 mg/dL (1.6-2.3); Potassium 3.1 mmol/L (3.5-5.1); Total Bilirubin 1.9 mg/dL (0.2-1.3); Total Protein 6.8 g/dL (6.3-8.2)
[2018-11-26 16:58] LABS: Anisocytosis Slight; Basophils % (A) 1 %; Eosinophils # (A) 0.3 k/uL (0-0.7); Eosinophils % (A) 6 %; HCT 34.2 % (34.0-46.0); HGB 10.5 gm/dL (11.4-16.0); Hypochromasia Moderate; Lymphocytes # (A) 1.1 k/uL (1.0-4.8); Lymphocytes % (A) 25 %; MCH 28.8 pg (25.0-35.0); MCHC 30.6 g/dL (31.0-37.0); Mean Platelet Volume 8.6; Monocytes # (A) 0.4 k/uL (0-1.0); Monocytes % (A) 9 %; Neutrophils # (A) 2.4 k/uL (1.3-7.7); Neutrophils % (A) 57 %; Poikilocytosis Slight; RBC 3.64 m/uL (3.80-5.40); RDW 17.7 % (11.5-15.5); WBC 4.2 k/uL (3.8-10.6)
--- NOTE | 2018-11-26 17:00 | XR ---
EXAMINATION TYPE: XR chest 2V DATE OF EXAM: 11/26/2018 COMPARISON: NONE HISTORY: Cough. Lower leg edema, liver masses TECHNIQUE: Frontal and lateral views of the chest are obtained. FINDINGS: There is no focal air space opacity, pleural effusion, or pneumothorax seen. The cardiac silhouette size is within normal limits. The osseous structures are intact. There are overlying car diac leads. Surgical clips present in the upper abdomen. IMPRESSION: No acute cardiopulmonary process.
[2018-11-26 17:01] LABS: Appearance,Urine Cloudy (Clear); Bacteria,Urine Many /hpf; Bilirubin,Urine Negative (Negative); Blood,Urine Negative (Negative); Color,Urine Yellow; Glucose,Urine (UA) Negative (Negative); Hyaline Casts,Urine 23 /lpf (0-2); Ketones,Urine Negative (Negative); Leukocyte Esterase,Urine Moderate (Negative); Mucus,Urine Rare /hpf; Nitrite,Urine Negative (Negative); Protein,Urine Negative (Negative); RBC,Urine 1 /hpf (0-5); Squamous Epithelial Cell,Urine 3 /hpf (0-4); Urobilinogen,Urine <2.0 mg/dL (<2.0); WBC,Urine 4 /hpf (0-5)
[2018-11-26] MEDS ORDERED: MORPHINE SULFATE 4 MG/ML SYRINGE IVP STA (17:02)
[2018-11-26 17:08] LABS: Platelet Count 86 k/uL (150-450)
[2018-11-26] MEDS ORDERED: MAGNESIUM SULFATE-D5W PMX 1 GM in DEXTROSE/WATER 1 100ML.BAG IVPB ONE (17:20)
[2018-11-26 17:21] LABS: Creatine Kinase MB 2.1 ng/mL (0.0-2.4); Troponin I 0.025 ng/mL (0.000-0.034)
[2018-11-26] MEDS ORDERED: POTASSIUM CHLORIDE ER 20 MEQ TAB.ER PO STA (17:21)
[2018-11-26] MEDS ORDERED: POTASSIUM CHLORIDE 10 MEQ in WATER FOR INJECTION 1 100ML.BAG IVPB STA ×2 (17:22→19:35)
[2018-11-26] MEDS ORDERED: NALOXONE 0.4 MG/ML 1 ML VIAL IV PRN (19:24)
[2018-11-26] MEDS: MORPHINE SULFATE 4 MG/ML SYRINGE IV PRN (23:01)
[2018-11-26 23:03] LABS: Glucose,Whole Blood 97 mg/dL (75-99)
[2018-11-26] MEDS: CHOLESTYRAMINE (WITH SUGAR) 4 GM PACKET PO SCH (23:03)
[2018-11-26] MEDS: SODIUM CHLORIDE 0.9% 1,000 ML IV SCH (23:03)
[2018-11-26] MEDS: ONDANSETRON ODT 8 MG TAB.RAPDIS PO SCH (23:03)
[2018-11-26] MEDS: DICYCLOMINE 10 MG CAP PO SCH (23:03)
[2018-11-26] MEDS: SUCRALFATE 1 GM TAB PO SCH (23:03)
[2018-11-26] MEDS: NYSTATIN 100,000 UNIT/ML SUSP 500,000 UNIT/5 ML CUP PO SCH (23:03)
[2018-11-26] MEDS: INSULIN NPH 300 UNIT/3 ML VIAL SQ SCH (23:06)
[2018-11-26] MEDS: HEPARIN SODIUM,PORCINE 5,000 UNIT/ML 1 ML VIAL SQ SCH (23:14)
[2018-11-26] MEDS: PREGABALIN 25 MG CAP PO SCH (23:14)
[2018-11-27] MEDS: MORPHINE SULFATE 4 MG/ML SYRINGE IV PRN ×5 (02:58→23:08)
[2018-11-27 06:54] LABS: Glucose,Whole Blood 144 mg/dL (75-99)
[2018-11-27] MEDS: INSULIN REGULAR 100 UNIT/ML VIAL SQ SCH ×3 (08:45→17:27)
[2018-11-27] MEDS: PANTOPRAZOLE 40 MG TABLET PO SCH (08:46)
[2018-11-27] MEDS: HEPARIN SODIUM,PORCINE 5,000 UNIT/ML 1 ML VIAL SQ SCH ×3 (08:46→23:08)
[2018-11-27] MEDS: ONDANSETRON ODT 8 MG TAB.RAPDIS PO SCH ×2 (08:47→17:26)
[2018-11-27] MEDS: CHOLESTYRAMINE (WITH SUGAR) 4 GM PACKET PO SCH ×3 (08:48→21:29)
[2018-11-27] MEDS: FUROSEMIDE 40 MG TAB PO SCH (08:49)
[2018-11-27] MEDS: MAGNESIUM OXIDE 400 MG TAB PO SCH (08:49)
[2018-11-27] MEDS: DICYCLOMINE 10 MG CAP PO SCH ×3 (08:49→21:25)
[2018-11-27] MEDS: METOPROLOL TARTRATE 12.5 MG TAB PO SCH (08:50)
[2018-11-27] MEDS: NYSTATIN 100,000 UNIT/ML SUSP 500,000 UNIT/5 ML CUP PO SCH ×4 (08:51→21:25)
[2018-11-27] MEDS: PREGABALIN 25 MG CAP PO SCH ×3 (08:51→21:25)
[2018-11-27] MEDS: SUCRALFATE 1 GM TAB PO SCH ×4 (08:52→21:25)
[2018-11-27] MEDS: INSULIN NPH 300 UNIT/3 ML VIAL SQ SCH ×2 (09:06→21:25)
[2018-11-27] MEDS: clonazePAM 0.5 MG TAB PO SCH ×2 (09:07→10:16)
--- NOTE | 2018-11-27 11:02 | P.CONS ---
History of Present Illness - Reason for Consult Consult date: 11/27/18 History of hepatocellular cancer. Edema - History of Present Illness The patient is a 73-year-old lady with computed indicated past medical and surgical history, initially seen in consult in 11/01. She gives a history of hepatocellular cancer, that had been treated at various outside hospitals. She was admitted with intractable pain at the time, and was considering transferring care here. At that time treatment records were not available, and were subsequently obtained. These are summarized below. 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 [facility] was consulted as well on intial pathology. It was felt to be an unusual appearing neoplasm at [facility] as hepatocellular parenchyma exhibited heavily lipidized cells by collagen and lymphoid response. Note she has history of an existing ileostomy due to dicerticulitis perforation in 2010, where colectomy and ileostomy was completed on 09/11/2011 04/18/2013 - Admitted to [facility] - under Dr. Desai with intent to resect liver mass, ex lap performed but excision of mass was not able to be performed Sometime between 2012--2014 she was treated with Chemoembolization (per patient at [facility]) She was also seen and treated by Dr. Varela during this time 2014: Seen at [facility] and again in 2016 she consulted with yet another hematology, oncologist Dr. Greg Bear in November 2016. 02/2016 - Ablation liver mass (unknown hospital) 06/2016 - Was evaluated at [facility] by Gastroenterology when a repeat liver biopsy was performed. Resulted with well-differentiated Hepatocellular Carcinoma 10/2016 Underwent Chemoembolization to left hepatic lobe with Interventional Radiology 08/2018 - She was evaluated at [facility] Right Hepatic Lobe Biopsy was performed - Well differentiated Hepatocellular Carcinoma and new 4.3cm right hepatic mass and underwent chemoembolization at this facility in August. At this time she also consulted with Medical Oncologist Dr. Ar Julio. 10/22/18 - She presented to [facility] with complaints of abdominal pain and discomfort. She was treated for UTI, as well as increased ostomy output which was positive for MRSA and treated with PO Vancomycin, She also underwent paracentesis for increasing abdominal ascites during this stay and pathology of ascitic fluid was negative for malignant cells, supportive care was given, she was discharged when stabiled on 11/03/18. 11/04/18 - She presented back to emergency with complaints of increased ostomy output and pain, less than 24 hours after discharge. She was provided pain management and a script for questran and discharge in stable condition from Emergency. Multiple first, new patient appointments have been made since 2017 for her although she has cancelled/not showed. As above. The patient denied ever having any systemic cancer therapy. She was admitted again on 11/11/18 complaining of intractable abdominal pain. Her abdominal imaging, as well as paracentesis, did not show any evidence of widespread malignancy. Therefore it doesn't appear that the cause of her pain is related to cancer. It appeared to be more related to her ostomy. The patient was seen by surgery, and was not felt to require any surgical intervention. She was also seen by a pain management, and Lyrica was added to MS Contin and short-acting morphine. The patient was then discharged with an appointment to follow-up with Dr. Yadav in the office on 12/05/18. The patient came back to the emergency room, stating that "everything was swelling up". She states that she developed swelling of her leg, as well as abdominal distention. Due to the abdominal distention she was experiencing some increased soreness in the upper abdomen. She states that otherwise her pain appeared to be reasonably controlled on her regimen. She was therefore admitted for further management. She denied any associated fevers/chills/nausea/vomiting or blood in the stool. Review of Systems Constitutional: Reports fatigue, Reports poor appetite, Reports weakness Eyes: denies blurred vision, denies pain Ears: deny: decreased hearing, ear discharge, earache, tinnitus Ears, nose, mouth and throat: Denies headache, Denies sore throat Cardiovascular: Reports decreased exercise tolerance Respiratory: Denies cough Gastrointestinal: Reports abdominal pain, Reports bloating Genitourinary: Denies dysuria, Denies hematuria Menstruation: Reports postmenopausal Musculoskeletal: Reports as per HPI, Reports muscle weakness Integumentary: Denies pruritus, Denies rash Neurological: Reports weakness, Denies numbness Psychiatric: Reports anhedonia, Denies anxiety, Denies depression Endocrine: Denies fatigue, Denies weight change Hematologic/Lymphatic: Reports as per HPI Past Medical History Past Medical History: Cancer, Diabetes Mellitus, Hypertension, Liver Disease Additional Past Medical History / Comment(s): liver ca- had chemo 10-03-18,past ascities-paracentesis, ( ulcer(sx),diveticulitis anx/depression History of Any Multi-Drug Resistant Organisms: MRSA Year Discovered:: 10/23/18 MDRO Source:: MRSA STOOL Past Surgical History: Appendectomy, Bowel Resection, Section, Cholecystectomy, Hysterectomy, Tonsillectomy Additional Past Surgical History / Comment(s): rt rotator cuff repair,carpal tunnel release .liver bx,ilieostomy ,11-02-18 had paracentesis. Multiple chemo embolizations of liver tumors Past Anesthesia/Blood Transfusion Reactions: No Reported Reaction Past Psychological History: Anxiety, Depression Additional Psychological History / Comment(s): Reformed smoker. . Retired. No experience. No animal exposures Smoking Status: Former smoker Past Alcohol Use History: None Reported Additional Past Alcohol Use History / Comment(s): started smoking 1962 and quit 1965 Past Drug Use History: None Reported - Past Family History Mother History Unknown: Yes Family Medical History: Congestive Heart Failure (CHF) Medications and Allergies Home Medications Medication Instructions Recorded Confirmed Type Dicyclomine [Bentyl] 10 mg PO TID 10/23/18 11/26/18 History Furosemide [Lasix] 40 mg PO DAILY 10/23/18 11/26/18 History Omeprazole [PriLOSEC] 20 mg PO BID 10/23/18 11/26/18 History Sucralfate [Carafate] 1 gm PO QID 10/23/18 11/26/18 History Insulin NPH Human Isophane 18 unit SQ BID 10/24/18 11/26/18 History [NovoLIN N] Insulin Regular, Human [NovoLIN R] 8 unit SQ AC-TID 10/24/18 11/26/18 History Magnesium 200 mg PO DAILY 10/24/18 11/26/18 History Metoprolol Tartrate 12.5 mg PO DAILY 10/24/18 11/26/18 History Ondansetron [Zofran ODT] 8 mg PO Q8HR 10/24/18 11/26/18 History Nystatin 100,000 Unit/ml Susp 500,000 unit PO QID #12 cup 11/03/18 11/26/18 Rx [Mycostatin Oral Susp] clonazePAM [KlonoPIN] 0.5 mg PO DAILY tab 11/03/18 11/26/18 Rx Cholestyramine (with Sugar) 4 gm PO TID #21 packet 11/04/18 11/26/18 Rx [Questran Packet] Morphine Sulfate ER [Ms Contin] 15 mg PO Q8H #9 tablet 11/22/18 11/26/18 Rx Pregabalin [Lyrica] 25 mg PO TID #9 cap 11/22/18 11/26/18 Rx Allergies Allergy/AdvReac Type Severity Reaction Status Date / Time GREG Inhibitors Allergy Cough Verified 11/26/18 16:07 amlodipine Allergy Rash/Hives Verified 11/26/18 16:07 oxycodone Allergy Rash/Hives Verified 11/26/18 16:07 Penicillins Allergy Rash/Hives Verified 11/26/18 16:07 hydromorphone [From Dilaudid] AdvReac Unknown Verified 11/26/18 16:07 sodium dodecyclbenzene Allergy Rash/Hives Uncoded 11/26/18 14:57 sulfonate Physical Exam Vitals: Vital Signs Temp Pulse Pulse Resp BP BP Pulse Ox 11/27/18 05:28 98.5 F 69 18 134/60 98 11/26/18 21:00 97.3 F L 65 18 128/60 100 11/26/18 20:54 98.3 F 11/26/18 20:00 66 12 107/52 97 11/26/18 18:00 63 16 103/62 90 L 11/26/18 16:53 64 15 102/52 98 11/26/18 14:54 98.2 F 64 18 129/63 99 Intake and Output 11/26/18 11/27/18 11/27/18 22:59 06:59 14:59 Intake Total 590 Balance 590 Intake: Oral 590 Other: # Voids 2 Weight 101 kg - Constitutional General appearance: no acute distress - EENT Eyes: EOMI, PERRLA ENT: hearing grossly normal, normal oropharynx - Neck Neck: no lymphadenopathy Thyroid: bilateral: normal size - Respiratory Respiratory: bilateral: CTA - Cardiovascular Rhythm: regular Heart sounds: normal: S1, S2 - Gastrointestinal Right lower quadrant ostomy General gastrointestinal: distended, normal bowel sounds, soft - Integumentary Integumentary: normal - Neurologic Neurologic: CNII-XII intact - Musculoskeletal Musculoskeletal: generalized weakness, strength equal bilaterally - Psychiatric Psychiatric: A&O x's 3, appropriate affect Results CBC & Chem 7: 11/26/18 16:25 11/26/18 16:25 Labs: Abnormal Lab Results - Last 24 Hours (Table) 11/26/18 11/26/18 11/26/18 Range/Units 16:25 16:25 16:25 RBC 3.64 L (3.80-5.40) m/uL Hgb 10.5 L (11.4-16.0) gm/dL MCHC 30.6 L (31.0-37.0) g/dL RDW 17.7 H (11.5-15.5) % Plt Count 86 L (150-450) k/uL Potassium 3.1 L (3.5-5.1) mmol/L Chloride 109 H (98-107) mmol/L Glucose 140 H (74-99) mg/dL POC Glucose (mg/dL) (75-99) mg/dL Calcium 7.9 L (8.4-10.2) mg/dL Magnesium 1.5 L (1.6-2.3) mg/dL Total Bilirubin 1.9 H (0.2-1.3) mg/dL AST 52 H (14-36) U/L Alkaline Phosphatase 203 H (38-126) U/L Total Creatine Kinase 160 H (30-135) U/L Albumin 2.7 L (3.5-5.0) g/dL Lipase 10 L (23-300) U/L Urine Appearance (Clear) Ur Leukocyte Esterase (Negative) Urine Bacteria (None) /hpf Hyaline Casts (0-2) /lpf Urine Mucus (None) /hpf 11/26/18 11/27/18 Range/Units 16:30 06:51 RBC (3.80-5.40) m/uL Hgb (11.4-16.0) gm/dL MCHC (31.0-37.0) g/dL RDW (11.5-15.5) % Plt Count (150-450) k/uL Potassium (3.5-5.1) mmol/L Chloride (98-107) mmol/L Glucose (74-99) mg/dL POC Glucose (mg/dL) 144 H (75-99) mg/dL Calcium (8.4-10.2) mg/dL Magnesium (1.6-2.3) mg/dL Total Bilirubin (0.2-1.3) mg/dL AST (14-36) U/L Alkaline Phosphatase (38-126) U/L Total Creatine Kinase (30-135) U/L Albumin (3.5-5.0) g/dL Lipase (23-300) U/L Urine Appearance Cloudy H (Clear) Ur Leukocyte Esterase Moderate H (Negative) Urine Bacteria Many H (None) /hpf Hyaline Casts 23 H (0-2) /lpf Urine Mucus Rare H (None) /hpf Chest x-ray: report reviewed Assessment and Plan (1) Peripheral edema Narrative/Plan: At this time this appears to be most likely related to liver decompensation from cirrhosis. She also had a right abnormalities, most likely due to the same underlying process, as well as diuretic use. The patient has improved with diuresis. On my exam currently no significant edema was noted. Continue with diuresis per internal medicine Current Visit: Yes Status: Acute Code(s): R60.9 - EDEMA, UNSPECIFIED SNOMED Code(s): 459420905 (2) Abdominal pain Narrative/Plan: This has been an ongoing issue with this patient, with a several day admission from 11/11/18 to 11/22/18. At this time, there is no evidence that this is related to malignancy. Abdominal imaging in 11/01 showed a small cirrhotic liver with 2 fairly small masses. She had no evidence of adenopathy elsewhere in the abdomen or other abdominal masses. She had acetic fluid drainage 2, with pathology in 11/01 also negative. Fluid chemistry was indicative of transudation. The cause of her abdominal pain is therefore somewhat unclear. It is felt that it may be related to her ostomy and prior surgery. She stated that pain control is reasonable on her current regimen. Continue same Given complains of recurrent distention, I will ask interventional radiology to check for repeat paracentesis. Current Visit: No Status: Acute Priority: High Code(s): R10.9 - UNSPECIFIED ABDOMINAL PAIN SNOMED Code(s): 44488757 (3) Liver cancer Narrative/Plan: Treatment history as noted above. Based on the history, and most recent imaging, it is not clear of the patient has had any progression since her last treatment. Definitely she does not appear to have any disease outside the liver at least based on most recent imaging, as well as acetic fluid pathology. Follow-up with Dr. Yadav in the office on 12/05/18 Current Visit: Yes Status: Acute Code(s): C22.9 - MALIG NEOPLASM OF LIVER, NOT SPECIFIED PRIMARY OR SEC SNOMED Code(s): 18338538
[2018-11-27 11:10] LABS: Glucose,Whole Blood 197 mg/dL (75-99)
--- NOTE | 2018-11-27 12:44 | P.HPIM ---
History of Present Illness H&P Date: 11/27/18 This is a 73-year-old female patient of Dr. Martinez. Patient presented to the emergency room with complaints of increased swelling and pain to her abdomen and lower extremities. Patient that over the past 2 days that increased edema has been noted more so to her left and right side. Patient has known past medical history of primary liver cancer in which she follows with oncology services. Additional medical history includes recent MRSA infection in her large intestine. Patient was adequately treated with oral Vanco. Additional medical history includes liver cirrhosis, diverticulitis, anemia and diabetes mellitus. Chest x-ray completed showing no acute cardiopulmonary process. EKG completed showing sinus rhythm with frequent premature ventricular complexes. Right bundle branch block. Moderate voltage criteria for LVH may be normal variant T-wave abnormality consider lateral ischemia. Patient was previously admitted for abdominal pain. At that time patient was evaluated by infectious disease, surgical, GI and pain services. Patient's potassium also on admit 3.1. During previous admission patient had problem with hyperkalemia. Will replace per protocol and continue to monitor. Magnesium also replace per protocol will recheck. Patient currently on Lasix 40 mg by mouth daily. Will order venous Doppler of oncology to rule out DVT. BNP 461. Oncology services have been consulted. Urinary analysis showing moderate amount of leukocyte Estrace. Urine culture has been ordered. Patient denies chest pain or shortness breath. Patient denies nausea vomiting or diarrhea. Patient denies any urinary burning or frequency Review of Systems please refer to HPI otherwise unremarkable Past Medical History Past Medical History: Cancer, Diabetes Mellitus, Hypertension, Liver Disease Additional Past Medical History / Comment(s): liver ca- had chemo 10-03-18,past ascities-paracentesis, ( ulcer(sx),diveticulitis anx/depression History of Any Multi-Drug Resistant Organisms: MRSA Date of last positivie culture/infection: 10/23/18 MDRO Source:: MRSA STOOL Past Surgical History: Appendectomy, Bowel Resection, Section, Cholecystectomy, Hysterectomy, Tonsillectomy Additional Past Surgical History / Comment(s): rt rotator cuff repair,carpal tunnel release .liver bx,ilieostomy ,11-02-18 had paracentesis. Multiple chemo embolizations of liver tumors Past Anesthesia/Blood Transfusion Reactions: No Reported Reaction Past Psychological History: Anxiety, Depression Additional Psychological History / Comment(s): Reformed smoker. . Retired. No experience. No animal exposures Smoking Status: Former smoker Past Alcohol Use History: None Reported Additional Past Alcohol Use History / Comment(s): started smoking 1962 and quit 1965 Past Drug Use History: None Reported - Past Family History Mother History Unknown: Yes Family Medical History: Congestive Heart Failure (CHF) Medications and Allergies Home Medications Medication Instructions Recorded Confirmed Type Dicyclomine [Bentyl] 10 mg PO TID 10/23/18 11/26/18 History Furosemide [Lasix] 40 mg PO DAILY 10/23/18 11/26/18 History Omeprazole [PriLOSEC] 20 mg PO BID 10/23/18 11/26/18 History Sucralfate [Carafate] 1 gm PO QID 10/23/18 11/26/18 History Insulin NPH Human Isophane 18 unit SQ BID 10/24/18 11/26/18 History [NovoLIN N] Insulin Regular, Human [NovoLIN R] 8 unit SQ AC-TID 10/24/18 11/26/18 History Magnesium 200 mg PO DAILY 10/24/18 11/26/18 History Metoprolol Tartrate 12.5 mg PO DAILY 10/24/18 11/26/18 History Ondansetron [Zofran ODT] 8 mg PO Q8HR 10/24/18 11/26/18 History Nystatin 100,000 Unit/ml Susp 500,000 unit PO QID #12 cup 11/03/18 11/26/18 Rx [Mycostatin Oral Susp] clonazePAM [KlonoPIN] 0.5 mg PO DAILY tab 11/03/18 11/26/18 Rx Cholestyramine (with Sugar) 4 gm PO TID #21 packet 11/04/18 11/26/18 Rx [Questran Packet] Morphine Sulfate ER [Ms Contin] 15 mg PO Q8H #9 tablet 11/22/18 11/26/18 Rx Pregabalin [Lyrica] 25 mg PO TID #9 cap 11/22/18 11/26/18 Rx Allergies Allergy/AdvReac Type Severity Reaction Status Date / Time GREG Inhibitors Allergy Cough Verified 11/26/18 16:07 amlodipine Allergy Rash/Hives Verified 11/26/18 16:07 oxycodone Allergy Rash/Hives Verified 11/26/18 16:07 Penicillins Allergy Rash/Hives Verified 11/26/18 16:07 hydromorphone [From Dilaudid] AdvReac Unknown Verified 11/26/18 16:07 sodium dodecyclbenzene Allergy Rash/Hives Uncoded 11/26/18 14:57 sulfonate Physical Exam Vitals: Vital Signs Temp Pulse Pulse Resp BP BP Pulse Ox 11/27/18 12:06 97.8 F 16 116/58 98 11/27/18 05:28 98.5 F 69 18 134/60 98 11/26/18 21:00 97.3 F L 65 18 128/60 100 11/26/18 20:54 98.3 F 11/26/18 20:00 66 12 107/52 97 11/26/18 18:00 63 16 103/62 90 L 11/26/18 16:53 64 15 102/52 98 11/26/18 14:54 98.2 F 64 18 129/63 99 Intake and Output 11/26/18 11/27/18 11/27/18 22:59 06:59 14:59 Intake Total 590 Balance 590 Intake: Oral 590 Other: # Voids 2 Weight 101 kg Head normocephalic Neck supple Lungs clear to auscultation bilaterally no wheezing or crackles Heart regular rate and rhythm S1-S2, no rub or gallop Abdomen soft rounded. Right lower quadrant ostomy Extremities +1 peripheral edema Neuro alert and orientated to 3 Results CBC & Chem 7: 11/26/18 16:25 11/26/18 16:25 Labs: Abnormal Lab Results - Last 24 Hours (Table) 11/26/18 11/26/18 11/26/18 Range/Units 16:25 16:25 16:25 RBC 3.64 L (3.80-5.40) m/uL Hgb 10.5 L (11.4-16.0) gm/dL MCHC 30.6 L (31.0-37.0) g/dL RDW 17.7 H (11.5-15.5) % Plt Count 86 L (150-450) k/uL Potassium 3.1 L (3.5-5.1) mmol/L Chloride 109 H (98-107) mmol/L Glucose 140 H (74-99) mg/dL POC Glucose (mg/dL) (75-99) mg/dL Calcium 7.9 L (8.4-10.2) mg/dL Magnesium 1.5 L (1.6-2.3) mg/dL Total Bilirubin 1.9 H (0.2-1.3) mg/dL AST 52 H (14-36) U/L Alkaline Phosphatase 203 H (38-126) U/L Total Creatine Kinase 160 H (30-135) U/L Albumin 2.7 L (3.5-5.0) g/dL Lipase 10 L (23-300) U/L Urine Appearance (Clear) Ur Leukocyte Esterase (Negative) Urine Bacteria (None) /hpf Hyaline Casts (0-2) /lpf Urine Mucus (None) /hpf 11/26/18 11/27/18 11/27/18 Range/Units 16:30 06:51 11:09 RBC (3.80-5.40) m/uL Hgb (11.4-16.0) gm/dL MCHC (31.0-37.0) g/dL RDW (11.5-15.5) % Plt Count (150-450) k/uL Potassium (3.5-5.1) mmol/L Chloride (98-107) mmol/L Glucose (74-99) mg/dL POC Glucose (mg/dL) 144 H 197 H (75-99) mg/dL Calcium (8.4-10.2) mg/dL Magnesium (1.6-2.3) mg/dL Total Bilirubin (0.2-1.3) mg/dL AST (14-36) U/L Alkaline Phosphatase (38-126) U/L Total Creatine Kinase (30-135) U/L Albumin (3.5-5.0) g/dL Lipase (23-300) U/L Urine Appearance Cloudy H (Clear) Ur Leukocyte Esterase Moderate H (Negative) Urine Bacteria Many H (None) /hpf Hyaline Casts 23 H (0-2) /lpf Urine Mucus Rare H (None) /hpf Thrombosis Risk Factor Assmnt - Choose All That Apply Each Factor Represents 1 point: Obesity (BMI >25), Swollen legs (current) Each Risk Factor Represents 2 Points: Age 61-74 years, Malignancy Other congenital or acquired thrombophilia - If yes, enter type in comment: No Thrombosis Risk Factor Assessment Total Risk Factor Score: 6 Thrombosis Risk Factor Assessment Level: High Risk Assessment and Plan Assessment: 1. Increased peripheral edema. Will order venous Doppler to rule out DVT. BNP 461. Patient currently maintained on by mouth Lasix 40 daily. Per cardiology services increased. Refilled female likely related to liver D consultation from cirrhosis 2. Increased abdominal Ascites. Patient has had previous paracentesis. Cardiology services are following. Per oncology interventional radiology will be consulted for possible paracentesis 3. Hypokalemia. Replace per protocol will recheck. Patient previously had problems with hyperkalemia 4. Hypomagnesemia. Replace per protocol will recheck 5. Liver cancer. Dr. odell has been consulted for oncology services. Patient follows outpatient with Dr. Yadav 12/05/2018. Per cardiology services patient does not appear to have any disease outside the liver from recent imaging 6. Chronic abdominal pain. This has been an ongoing issue for patient. During previous admission patient was seen by surgical, GI, infectious disease and pain management services. No surgical intervention was recommended. Interventional radiology will be consulted per oncology services for possible paracentesis might be contributing to ongoing abdominal pain 7. History of diverticulitis with history of bowel perforation and ileostomy placement. 8. Thrombocytopenia chronic. Secondary to chronic liver cirrhosis 9. Chronic normocytic anemia secondary to liver cirrhosis and malignancy. Oncology is following 10. Diabetes mellitus. Previous hemoglobin 7.1. Home meds resumed 11. Elevated liver enzymes. This is chronic due to patient's known liver malignancy. Continue to monitor closely 12. Urinary tract infection. Urinary analysis showing moderate amount of leukocyte Estrace. Urine culture ordered DVT prophylaxis heparin. GI prophylaxis Protonix
[2018-11-27 13:24] LABS: ALT 26 U/L (9-52); AST 39 U/L (14-36); Albumin 2.2 g/dL (3.5-5.0); Alkaline Phosphatase 171 U/L (38-126); Anion Gap 3 mmol/L; Blood Urea Nitrogen 11 mg/dL (7-17); Calcium 7.7 mg/dL (8.4-10.2); Carbon Dioxide 26 mmol/L (22-30); Chloride 109 mmol/L (98-107); Glucose 135 mg/dL (74-99); Potassium 3.6 mmol/L (3.5-5.1); Sodium 138 mmol/L (137-145); Total Bilirubin 1.6 mg/dL (0.2-1.3); Total Protein 5.6 g/dL (6.3-8.2)
--- NOTE | 2018-11-27 15:49 | US ---
EXAMINATION TYPE: US venous doppler duplex LE DATE OF EXAM: 11/27/2018 12:28 PM COMPARISON: NONE CLINICAL HISTORY: r/o DVT. left leg edema SIDE PERFORMED: bilateral TECHNIQUE: The lower extremity deep venous system is examined utilizing real time linear array sonog ty with graded compression, doppler sonography and color-flow sonography. VESSELS IMAGED: External Iliac Vein (EIV) Common Femoral Vein Deep Femoral Vein Greater Saphenous Vein * Femoral Vein Popliteal Vein Small Saphenous Vein * Proximal Calf Veins (* superficial vessels) Right Leg: Grayscale, color doppler, spectral doppler imaging performed of the deep veins of the low er extremities. There is normal flow, compressibility, vascular waveforms. Left Leg: Grayscale, color doppler, spectral doppler imaging performed of the deep veins of the lowe r extremities. There is normal flow, compressibility, vascular waveforms. IMPRESSION: No sonographic evaluation of deep vein thrombus of the bilateral lower extremities.
[2018-11-27 17:03] LABS: Glucose,Whole Blood 154 mg/dL (75-99)
[2018-11-27] MEDS: SODIUM CHLORIDE 0.9% 1,000 ML IV SCH (19:56)
[2018-11-27 20:33] LABS: Glucose,Whole Blood 139 mg/dL (75-99)
[2018-11-27] MEDS: CIPROFLOXACIN HCL 250 MG TAB PO SCH (21:25)
[2018-11-28] MEDS: ONDANSETRON ODT 8 MG TAB.RAPDIS PO SCH ×4 (00:27→23:24)
[2018-11-28] MEDS: MORPHINE SULFATE 4 MG/ML SYRINGE IV PRN ×5 (05:34→23:24)
[2018-11-28 06:51] LABS: Glucose,Whole Blood 139 mg/dL (75-99)
[2018-11-28 07:42] LABS: Anisocytosis Slight; Basophils % (A) 0 %; Eosinophils # (A) 0.2 k/uL (0-0.7); Eosinophils % (A) 8 %; HCT 29.6 % (34.0-46.0); HGB 9.4 gm/dL (11.4-16.0); Hypochromasia Marked; Lymphocytes % (A) 35 %; MCHC 31.6 g/dL (31.0-37.0); MCV 94.9 fL (80.0-100.0); Monocytes # (A) 0.2 k/uL (0-1.0); Monocytes % (A) 8 %; Neutrophils # (A) 1.3 k/uL (1.3-7.7); Neutrophils % (A) 45 %; Poikilocytosis Slight; RBC 3.12 m/uL (3.80-5.40); RDW 17.4 % (11.5-15.5); WBC 2.9 k/uL (3.8-10.6)
[2018-11-28 07:45] LABS: Platelet Count 78 k/uL (150-450)
[2018-11-28 07:54] LABS: Albumin 2.2 g/dL (3.5-5.0); Calcium 7.9 mg/dL (8.4-10.2); Magnesium 1.8 mg/dL (1.6-2.3); Total Bilirubin 1.8 mg/dL (0.2-1.3); Total Protein 5.5 g/dL (6.3-8.2)
[2018-11-28] MEDS: CHOLESTYRAMINE (WITH SUGAR) 4 GM PACKET PO SCH ×3 (07:58→19:44)
[2018-11-28] MEDS: HEPARIN SODIUM,PORCINE 5,000 UNIT/ML 1 ML VIAL SQ SCH ×3 (07:58→23:24)
[2018-11-28] MEDS: PANTOPRAZOLE 40 MG TABLET PO SCH (07:58)
[2018-11-28] MEDS: INSULIN REGULAR 100 UNIT/ML VIAL SQ SCH ×3 (08:03→17:38)
[2018-11-28] MEDS: CIPROFLOXACIN HCL 250 MG TAB PO SCH ×2 (08:06→19:43)
[2018-11-28] MEDS: FUROSEMIDE 40 MG TAB PO SCH (08:10)
[2018-11-28] MEDS: DICYCLOMINE 10 MG CAP PO SCH ×3 (08:10→19:43)
[2018-11-28] MEDS: PREGABALIN 25 MG CAP PO SCH ×3 (08:10→21:10)
[2018-11-28] MEDS: SUCRALFATE 1 GM TAB PO SCH ×4 (08:10→19:43)
[2018-11-28] MEDS: NYSTATIN 100,000 UNIT/ML SUSP 500,000 UNIT/5 ML CUP PO SCH ×4 (08:10→19:39)
[2018-11-28] MEDS: clonazePAM 0.5 MG TAB PO SCH (08:14)
[2018-11-28] MEDS: METOPROLOL TARTRATE 12.5 MG TAB PO SCH (08:15)
[2018-11-28] MEDS: MAGNESIUM OXIDE 400 MG TAB PO SCH (08:16)
[2018-11-28] MEDS: INSULIN NPH 300 UNIT/3 ML VIAL SQ SCH ×2 (08:57→21:10)
--- NOTE | 2018-11-28 10:04 | P.PN ---
Subjective Progress Note Date: 11/28/18 This is a 73-year-old female patient of Dr. Martinez. Patient presented to the emergency room with complaints of increased swelling and pain to her abdomen and lower extremities. Patient that over the past 2 days that increased edema has been noted more so to her left and right side. Patient has known past medical history of primary liver cancer in which she follows with oncology services. Additional medical history includes recent MRSA infection in her large intestine. Patient was adequately treated with oral Vanco. Additional medical history includes liver cirrhosis, diverticulitis, anemia and diabetes mellitus. Chest x-ray completed showing no acute cardiopulmonary process. EKG completed showing sinus rhythm with frequent premature ventricular complexes. Right bundle branch block. Moderate voltage criteria for LVH may be normal variant T-wave abnormality consider lateral ischemia. Patient was previously admitted for abdominal pain. At that time patient was evaluated by infectious disease, surgical, GI and pain services. Patient's potassium also on admit 3.1. During previous admission patient had problem with hyperkalemia. Will replace per protocol and continue to monitor. Magnesium also replace per protocol will recheck. Patient currently on Lasix 40 mg by mouth daily. Will order venous Doppler of oncology to rule out DVT. BNP 461. Oncology services have been consulted. Urinary analysis showing moderate amount of leukocyte Estrace. Urine culture has been ordered. Patient denies chest pain or shortness breath. Patient denies nausea vomiting or diarrhea. Patient denies any urinary burning or frequency 11/28/2018 patient's alert and oriented 3. Patient had 2-D echo completed. This time patient is still complaining of some abdominal discomfort around stoma site. Denies chest pain or shortness breath. Patient denies nausea vomiting or diarrhea. Patient denies any urinary burning or frequency Objective - Vital Signs Vital signs: Vital Signs Temp 96.5 F L 11/28/18 05:37 Pulse 70 11/28/18 05:37 Resp 18 11/28/18 05:37 BP 108/55 11/28/18 05:37 Pulse Ox 96 11/28/18 05:37 Intake & Output 11/27/18 11/28/18 11/28/18 18:59 06:59 18:59 Intake Total 900 Balance 900 Intake: Intake, IV Titration 180 Amount Sodium Chloride 0.9% 1, 180 000 ml @ 20 mls/hr IV . Q24H [facility] Rx#:[id number] Oral 720 Other: Voiding Method Toilet # Voids 2 # Bowel Movements 3 - Exam Head normocephalic Neck supple Lungs clear to auscultation bilaterally no wheezing or crackles Heart regular rate and rhythm S1-S2, no rub or gallop Abdomen increased abdominal ascites. Right lower quadrant ostomy. Extremities +1 lower extremity peripheral edema Neuro alert and orientated to 3 - Labs CBC & Chem 7: 11/28/18 07:15 11/28/18 07:15 Labs: Abnormal Lab Results - Last 24 Hours (Table) 11/27/18 11/27/18 11/27/18 Range/Units 11:09 12:46 17:02 WBC (3.8-10.6) k/uL RBC (3.80-5.40) m/uL Hgb (11.4-16.0) gm/dL Hct (34.0-46.0) % RDW (11.5-15.5) % Plt Count (150-450) k/uL Chloride 109 H (98-107) mmol/L Glucose 135 H (74-99) mg/dL POC Glucose (mg/dL) 197 H 154 H (75-99) mg/dL Calcium 7.7 L (8.4-10.2) mg/dL Total Bilirubin 1.6 H (0.2-1.3) mg/dL AST 39 H (14-36) U/L Alkaline Phosphatase 171 H (38-126) U/L Total Protein 5.6 L (6.3-8.2) g/dL Albumin 2.2 L (3.5-5.0) g/dL 11/27/18 11/28/18 11/28/18 Range/Units 20:21 06:49 07:15 WBC 2.9 L (3.8-10.6) k/uL RBC 3.12 L (3.80-5.40) m/uL Hgb 9.4 L (11.4-16.0) gm/dL Hct 29.6 L (34.0-46.0) % RDW 17.4 H (11.5-15.5) % Plt Count 78 L (150-450) k/uL Chloride (98-107) mmol/L Glucose (74-99) mg/dL POC Glucose (mg/dL) 139 H 139 H (75-99) mg/dL Calcium (8.4-10.2) mg/dL Total Bilirubin (0.2-1.3) mg/dL AST (14-36) U/L Alkaline Phosphatase (38-126) U/L Total Protein (6.3-8.2) g/dL Albumin (3.5-5.0) g/dL 11/28/18 Range/Units 07:15 WBC (3.8-10.6) k/uL RBC (3.80-5.40) m/uL Hgb (11.4-16.0) gm/dL Hct (34.0-46.0) % RDW (11.5-15.5) % Plt Count (150-450) k/uL Chloride 111 H (98-107) mmol/L Glucose 138 H (74-99) mg/dL POC Glucose (mg/dL) (75-99) mg/dL Calcium 7.9 L (8.4-10.2) mg/dL Total Bilirubin 1.8 H (0.2-1.3) mg/dL AST (14-36) U/L Alkaline Phosphatase 164 H (38-126) U/L Total Protein 5.5 L (6.3-8.2) g/dL Albumin 2.2 L (3.5-5.0) g/dL Microbiology - Last 24 Hours (Table) 11/27/18 11:34 Urine Culture - Preliminary Urine,Voided Assessment and Plan Assessment: 1. Increased peripheral edema. Will order venous Doppler to rule out DVT. BNP 461. Patient currently maintained on by mouth Lasix 40 daily. Venous Doppler negative for lower extremity DVT 2. Increased abdominal Ascites. Patient has had previous paracentesis. Cardiology services are following. Per oncology interventional radiology will be consulted for possible paracentesis 3. Hypokalemia. Replace per protocol will recheck. Patient previously had problems with hyperkalemia. Resolved 4. Hypomagnesemia. Replace per protocol will recheck 5. Liver cancer. Dr. odell has been consulted for oncology services. Patient follows outpatient with Dr. Yadav 12/05/2018. Per cardiology services patient does not appear to have any disease outside the liver from recent imaging 6. Chronic abdominal pain. This has been an ongoing issue for patient. During previous admission patient was seen by surgical, GI, infectious disease and pain management services. No surgical intervention was recommended. Interventional radiology will be consulted per oncology services for possible paracentesis might be contributing to ongoing abdominal pain 7. History of diverticulitis with history of bowel perforation and ileostomy placement. 8. Thrombocytopenia chronic. Secondary to chronic liver cirrhosis 9. Chronic normocytic anemia secondary to liver cirrhosis and malignancy. Oncology is following 10. Diabetes mellitus. Previous hemoglobin 7.1. Home meds resumed 11. Elevated liver enzymes. This is chronic due to patient's known liver malignancy. Continue to monitor closely 12. Urinary tract infection. Urinary analysis showing moderate amount of leukocyte Estrace. Urine culture ordered. Patient started on Cipro antibiotic DVT prophylaxis heparin. GI prophylaxis Protonix I performed an examination of the patient and discussed their management with the Nurse Practitioner. I have reviewed the Nurse Practitioner's notes and agree with the documented findings and plan of care
[2018-11-28 11:09] LABS: Glucose,Whole Blood 207 mg/dL (75-99)
--- NOTE | 2018-11-28 12:27 | US ---
EXAMINATION TYPE: US abdomen limited DATE OF EXAM: 11/28/2018 COMPARISON: US dated 11/18/2018 CLINICAL HISTORY: ascites. Ascites is imaged in all four abdominal quadrants with largest measured in LLQ = 8.6cm A/P IMPRESSION: Recurrent mild to moderate abdominopelvic ascites with the largest pocket in left lower quadrant measuring 8.6 cm.
[2018-11-28 12:29] LABS: Mean Platelet Volume 8.7
[2018-11-28 12:30] LABS: INR 1.5 (<1.2); Prothrombin Time 15.4 sec (9.0-12.0)
[2018-11-28 12:50] LABS: Platelet Count 73 k/uL (150-450)
--- NOTE | 2018-11-28 16:03 | US ---
Therapeutic paracentesis. DATE OF EXAM: 11/28/2018 CLINICAL HISTORY: Ascites The procedure was discussed with the patient. The risks, complications, benefits, and alternatives we re discussed and any questions were answered. Informed consent was obtained. The patient was placed s upine on the ultrasound table and prepped and draped in the usual sterile fashion. All elements of maximal barrier technique were utilized. Under ultrasound guidance, access into the left lower quadrant was obtained, via the paracentesis catheter system and direct ultrasound guidance . Approximately 3.6 liters of straw-colored fluid was removed. The patient was stable throughout the pr ocedure and remained stable upon discharge from Department of Radiology. IMPRESSION: Successful therapeutic paracentesis under ultrasound guidance.
[2018-11-28 17:24] LABS: Glucose,Whole Blood 88 mg/dL (75-99)
--- NOTE | 2018-11-28 17:31 | P.PN ---
Subjective Progress Note Date: 11/28/18 Principal diagnosis: Hepatocellular Patient pain is inconsistent is difficult to define, Legs appear to have improved Objective - Vital Signs Vital signs: Vital Signs Temp 98.4 F 11/28/18 13:59 Pulse 60 11/28/18 14:50 Resp 20 11/28/18 14:50 BP 113/56 11/28/18 14:50 Pulse Ox 98 11/28/18 14:50 Intake & Output 11/27/18 11/28/18 11/28/18 18:59 06:59 18:59 Intake Total 900 600 Balance 900 600 Intake: Intake, IV Titration 180 Amount Sodium Chloride 0.9% 1, 180 000 ml @ 20 mls/hr IV . Q24H [facility] Rx#:[id number] Oral 720 600 Other: Voiding Method Toilet # Voids 2 3 # Bowel Movements 3 - Exam - Constitutional General appearance: no acute distress - EENT Eyes: EOMI, PERRLA ENT: hearing grossly normal, normal oropharynx - Neck Neck: no lymphadenopathy Thyroid: bilateral: normal size - Respiratory Respiratory: bilateral: CTA - Cardiovascular Rhythm: regular Heart sounds: normal: S1, S2 - Gastrointestinal Right lower quadrant ostomy General gastrointestinal: distended, normal bowel sounds, soft - Integumentary Integumentary: normal - Neurologic Neurologic: CNII-XII intact - Musculoskeletal Musculoskeletal: generalized weakness, strength equal bilaterally - Psychiatric Psychiatric: A&O x's 3, appropriate affect - Labs CBC & Chem 7: 11/28/18 12:11 11/28/18 07:15 Labs: Abnormal Lab Results - Last 24 Hours (Table) 11/27/18 11/28/18 11/28/18 Range/Units 20:21 06:49 07:15 WBC 2.9 L (3.8-10.6) k/uL RBC 3.12 L (3.80-5.40) m/uL Hgb 9.4 L (11.4-16.0) gm/dL Hct 29.6 L (34.0-46.0) % RDW 17.4 H (11.5-15.5) % Plt Count 78 L (150-450) k/uL PT (9.0-12.0) sec INR (<1.2) Chloride (98-107) mmol/L Glucose (74-99) mg/dL POC Glucose (mg/dL) 139 H 139 H (75-99) mg/dL Calcium (8.4-10.2) mg/dL Total Bilirubin (0.2-1.3) mg/dL Alkaline Phosphatase (38-126) U/L Total Protein (6.3-8.2) g/dL Albumin (3.5-5.0) g/dL 11/28/18 11/28/18 11/28/18 Range/Units 07:15 11:07 12:11 WBC (3.8-10.6) k/uL RBC (3.80-5.40) m/uL Hgb (11.4-16.0) gm/dL Hct (34.0-46.0) % RDW (11.5-15.5) % Plt Count 73 L (150-450) k/uL PT (9.0-12.0) sec INR (<1.2) Chloride 111 H (98-107) mmol/L Glucose 138 H (74-99) mg/dL POC Glucose (mg/dL) 207 H (75-99) mg/dL Calcium 7.9 L (8.4-10.2) mg/dL Total Bilirubin 1.8 H (0.2-1.3) mg/dL Alkaline Phosphatase 164 H (38-126) U/L Total Protein 5.5 L (6.3-8.2) g/dL Albumin 2.2 L (3.5-5.0) g/dL 11/28/18 Range/Units 12:11 WBC (3.8-10.6) k/uL RBC (3.80-5.40) m/uL Hgb (11.4-16.0) gm/dL Hct (34.0-46.0) % RDW (11.5-15.5) % Plt Count (150-450) k/uL PT 15.4 H (9.0-12.0) sec INR 1.5 H (<1.2) Chloride (98-107) mmol/L Glucose (74-99) mg/dL POC Glucose (mg/dL) (75-99) mg/dL Calcium (8.4-10.2) mg/dL Total Bilirubin (0.2-1.3) mg/dL Alkaline Phosphatase (38-126) U/L Total Protein (6.3-8.2) g/dL Albumin (3.5-5.0) g/dL Microbiology - Last 24 Hours (Table) 11/27/18 11:34 Urine Culture - Final Urine,Voided Assessment and Plan (1) Liver cancer Current Visit: Yes Status: Acute Code(s): C22.9 - MALIG NEOPLASM OF LIVER, NOT SPECIFIED PRIMARY OR SEC SNOMED Code(s): 04419040 (2) Peripheral edema Current Visit: Yes Status: Acute Code(s): R60.9 - EDEMA, UNSPECIFIED SNOMED Code(s): 253924196 (3) Abdominal pain Current Visit: No Status: Acute Code(s): R10.9 - UNSPECIFIED ABDOMINAL PAIN SNOMED Code(s): 81289891 (4) Ascites Current Visit: No Status: Acute Code(s): R18.8 - OTHER ASCITES SNOMED Code (s): 568463567 (5) High risk for readmission Current Visit: No Status: Acute Code(s): Z91.89 - OTH PERSONAL RISK FACTORS , NOT ELSEWHERE CLASSIFIED SNOMED Code(s): 526893471 (6) Intractable abdominal pain Current Visit: No Status: Acute Code(s): R10.9 - UNSPECIFIED ABDOMINAL PAIN SNOMED Code(s): 00012714 (7) Hepatocellular carcinoma Current Visit: No Status: Chronic Priority: Medium Code(s): C22.0 - LIVER CELL CARCINOMA SNOMED Code(s): 713435311 Plan: Assessment and Recommentations: 1. Hepatocellular Carcinoma - Status Post Chemoembolization: 2012, 2015 and recent 2017 - Multiple medical opinions from multiple outside hospitals - Currently Monitoring 2. Recurrent abdominal pain related admission: - Inconsistent and unclear: Likely multifactoral - Recurrent Ascites, Recent MRSA Stools, Diarrhea - Pain Management and supportive care 3. Abdominal Ascites: Status Post 3.6 Liters off abdomen today - Recent Paracentesis was negative for malignat cells
[2018-11-28 19:09] LABS: Appearance,BF Hazy; Color,BF Yellow; Nucleated Cells, Body Fluid 164 /uL; RBC, Body Fluid 35 /uL
[2018-11-28 19:10] LABS: Mononuclear WBC,Body Fluid 95 %; Polynuclear WBC,Body Fluid 5 %
[2018-11-28] MEDS: SODIUM CHLORIDE 0.9% 1,000 ML IV SCH (19:46)
--- NOTE | 2018-11-28 19:58 | ECHOF ---
Referral Reason:r/o chf MEASUREMENTS -------- HEIGHT: 175.3 cm WEIGHT: 100.7 kg BP: 108/55 RVIDd: 3.4 cm (< 3.3) IVSd: 1.2 cm (0.6 - 1.1) LVIDd: 6.1 cm (3.9 - 5.3) LVPWd: 1.3 cm (0.6 - 1.1) IVSs: 1.7 cm LVIDs: 4.6 cm LVPWs: 1.4 cm LA Diam: 4.2 cm (2.7 - 3.8) LAESV Index (A-L): 32.21 ml/m Ao Diam: 3.1 cm (2.0 - 3.7) AV Cusp: 1.6 cm (1.5 - 2.6) MV EXCURSION: 16.312 mm (> 18.000) MV EF SLOPE: 72 mm/s (70 - 150) EPSS: 1.0 cm MV E Delroy: 1.00 m/s MV DecT: 313 ms MV A Delroy: 1.21 m/s MV E/A Ratio: 0.83 AV maxP.47 mmHg AV meanP.75 mmHg RAP: 5.00 mmHg RVSP: 21.14 mmHg FINDINGS -------- Sinus rhythm. This was a technically adequate study. The left ventricle is moderately dilated. There is mild concentric left ventricular hypertrophy. Overall left ventricular systolic function is mildly impaired with, an EF between 45 - 50 %. Basal posterior LV wall motion is hypokinetic. Basal inferior LV wall motion is hypokinetic. Basal in feroseptal LV wall motion is hypokinetic. The right ventricle is mildly enlarged. LA is midly dilated 29-33ml/m2. The right atrium is normal in size. There is moderate aortic valve sclerosis. There is mild aortic stenosis present. Peak/mean gradie nt across the Aortic Valve is 29.47mmHg / 16.75mmHg. Mild mitral annular calcification present. There is trace to mild mitral regurgitation. The tricuspid valve appears structurally normal. Trace/mild (physiologic) pulmonic regurgitation. The aortic root size is normal. IVC Not well visulized. There is no pericardial effusion. CONCLUSIONS -------- 1. Sinus rhythm. 2. This was a technically adequate study. 3. The left ventricle is moderately dilated. 4. There is mild concentric left ventricular hypertrophy. 5. Overall left ventricular systolic function is mildly impaired with, an EF between 45 - 50 %. 6. Basal posterior LV wall motion is hypokinetic. 7. Basal inferior LV wall motion is hypokinetic. 8. Basal inferoseptal LV wall motion is hypokinetic. 9. The right ventricle is mildly enlarged. 10. LA is midly dilated 29-33ml/m2. 11. The right atrium is normal in size. 12. There is moderate aortic valve sclerosis. 13. There is mild aortic stenosis present. 14. Peak/mean gradient across the Aortic Valve is 29.47mmHg / 16.75mmHg. 15. Mild mitral annular calcification present. 16. There is trace to mild mitral regurgitation. 17. The tricuspid valve appears structurally normal. 18. Trace/mild (physiologic) pulmonic regurgitation. 19. The aortic root size is normal. 20. IVC Not well visulized. 21. There is no pericardial effusion. SHINGLE CARRIER: Sharon Rehman RDCS
[2018-11-28 21:04] LABS: Glucose,Whole Blood 163 mg/dL (75-99)
[2018-11-29] MEDS: MORPHINE SULFATE 4 MG/ML SYRINGE IV PRN ×4 (04:22→21:36)
[2018-11-29 04:58] LABS: Total Protein, Body Fluid 776 mg/dL
[2018-11-29 07:09] LABS: Glucose,Whole Blood 115 mg/dL (75-99)
[2018-11-29] MEDS: INSULIN REGULAR 100 UNIT/ML VIAL SQ SCH ×3 (08:10→18:07)
[2018-11-29] MEDS: PANTOPRAZOLE 40 MG TABLET PO SCH (08:13)
[2018-11-29] MEDS: HEPARIN SODIUM,PORCINE 5,000 UNIT/ML 1 ML VIAL SQ SCH ×3 (08:13→23:46)
[2018-11-29] MEDS: CIPROFLOXACIN HCL 250 MG TAB PO SCH ×2 (08:15→21:22)
[2018-11-29] MEDS: DICYCLOMINE 10 MG CAP PO SCH ×3 (08:15→21:23)
[2018-11-29] MEDS: SUCRALFATE 1 GM TAB PO SCH ×4 (08:15→21:24)
[2018-11-29] MEDS: NYSTATIN 100,000 UNIT/ML SUSP 500,000 UNIT/5 ML CUP PO SCH ×4 (08:15→21:24)
[2018-11-29] MEDS: ONDANSETRON ODT 8 MG TAB.RAPDIS PO SCH ×3 (08:15→23:47)
[2018-11-29] MEDS: FUROSEMIDE 40 MG TAB PO SCH (08:16)
[2018-11-29] MEDS: METOPROLOL TARTRATE 12.5 MG TAB PO SCH (08:16)
[2018-11-29] MEDS: PREGABALIN 25 MG CAP PO SCH ×3 (08:16→21:24)
[2018-11-29] MEDS: MAGNESIUM OXIDE 400 MG TAB PO SCH (08:16)
[2018-11-29] MEDS: CHOLESTYRAMINE (WITH SUGAR) 4 GM PACKET PO SCH ×3 (08:17→21:22)
[2018-11-29] MEDS: INSULIN NPH 300 UNIT/3 ML VIAL SQ SCH ×2 (08:18→21:22)
[2018-11-29] MEDS: clonazePAM 0.5 MG TAB PO SCH (08:18)
[2018-11-29 08:44] LABS: Anisocytosis Slight; Basophils % (A) 1 %; Eosinophils # (A) 0.3 k/uL (0-0.7); Eosinophils % (A) 7 %; HCT 30.1 % (34.0-46.0); HGB 9.6 gm/dL (11.4-16.0); Hypochromasia Marked; Lymphocytes % (A) 28 %; MCH 30.2 pg (25.0-35.0); MCV 94.5 fL (80.0-100.0); Mean Platelet Volume 10.1; Monocytes # (A) 0.3 k/uL (0-1.0); Monocytes % (A) 7 %; Neutrophils % (A) 55 %; Poikilocytosis Slight; RBC 3.18 m/uL (3.80-5.40); RDW 17.4 % (11.5-15.5); WBC 3.7 k/uL (3.8-10.6)
[2018-11-29 08:50] LABS: Platelet Count 72 k/uL (150-450)
[2018-11-29 08:53] LABS: Albumin 2.1 g/dL (3.5-5.0); Calcium 7.7 mg/dL (8.4-10.2); Magnesium 1.7 mg/dL (1.6-2.3); Potassium 4.7 mmol/L (3.5-5.1); Total Bilirubin 1.7 mg/dL (0.2-1.3); Total Protein 5.4 g/dL (6.3-8.2)
[2018-11-29 11:17] LABS: Glucose,Whole Blood 204 mg/dL (75-99)
--- NOTE | 2018-11-29 12:38 | P.PN ---
Subjective Progress Note Date: 11/29/18 Principal diagnosis: Hepatocellular Feeling better after paracentesis, still not actively getting up and out of bed. I would continue her home long acting pain medications while inpatient. Objective - Vital Signs Vital signs: Vital Signs Temp 97.8 F 11/29/18 12:26 Pulse 75 11/29/18 12:26 Resp 18 11/29/18 12:26 BP 111/52 11/29/18 12:26 Pulse Ox 99 11/29/18 12:26 Intake & Output 11/28/18 11/29/18 11/29/18 18:59 06:59 18:59 Intake Total 600 250 Balance 600 250 Intake: IV 10 0.9 10 Oral 600 240 Other: Voiding Method Toilet Toilet # Voids 3 1 - Exam - Constitutional General appearance: no acute distress - EENT Eyes: EOMI, PERRLA ENT: hearing grossly normal, normal oropharynx - Neck Neck: no lymphadenopathy Thyroid: bilateral: normal size - Respiratory Respiratory: bilateral: CTA - Cardiovascular Rhythm: regular Heart sounds: normal: S1, S2 - Gastrointestinal Right lower quadrant ostomy General gastrointestinal: distended, normal bowel sounds, soft - Integumentary Integumentary: normal - Neurologic Neurologic: CNII-XII intact - Musculoskeletal Musculoskeletal: generalized weakness, strength equal bilaterally - Psychiatric Psychiatric: A&O x's 3, appropriate affect - Labs CBC & Chem 7: 11/29/18 08:01 11/29/18 08:01 Labs: Abnormal Lab Results - Last 24 Hours (Table) 11/28/18 11/28/18 11/29/18 Range/Units 12:11 21:02 07:07 WBC (3.8-10.6) k/uL RBC (3.80-5.40) m/uL Hgb (11.4-16.0) gm/dL Hct (34.0-46.0) % RDW (11.5-15.5) % Plt Count 73 L (150-450) k/uL Chloride (98-107) mmol/L Glucose (74-99) mg/dL POC Glucose (mg/dL) 163 H 115 H (75-99) mg/dL Calcium (8.4-10.2) mg/dL Total Bilirubin (0.2-1.3) mg/dL Alkaline Phosphatase (38-126) U/L Total Protein (6.3-8.2) g/dL Albumin (3.5-5.0) g/dL 11/29/18 11/29/18 11/29/18 Range/Units 08:01 08:01 11:05 WBC 3.7 L (3.8-10.6) k/uL RBC 3.18 L (3.80-5.40) m/uL Hgb 9.6 L (11.4-16.0) gm/dL Hct 30.1 L (34.0-46.0) % RDW 17.4 H (11.5-15.5) % Plt Count 72 L (150-450) k/uL Chloride 113 H (98-107) mmol/L Glucose 117 H (74-99) mg/dL POC Glucose (mg/dL) 204 H (75-99) mg/dL Calcium 7.7 L (8.4-10.2) mg/dL Total Bilirubin 1.7 H (0.2-1.3) mg/dL Alkaline Phosphatase 158 H (38-126) U/L Total Protein 5.4 L (6.3-8.2) g/dL Albumin 2.1 L (3.5-5.0) g/dL Microbiology - Last 24 Hours (Table) 11/28/18 14:25 Gram Stain - Preliminary Ascites Fluid Body Fluid Culture - Preliminary 11/27/18 11:34 Urine Culture - Final Urine,Voided Assessment and Plan (1) Liver cancer Current Visit: Yes Status: Acute Code(s): C22.9 - MALIG NEOPLASM OF LIVER, NOT SPECIFIED PRIMARY OR SEC SNOMED Code(s): 40229587 (2) Peripheral edema Current Visit: Yes Status: Acute Code(s): R60.9 - EDEMA, UNSPECIFIED SNOMED Code(s): 191011341 (3) Abdominal pain Current Visit: No Status: Acute Code(s): R10.9 - UNSPECIFIED ABDOMINAL PAIN SNOMED Code(s): 10557267 (4) Ascites Current Visit: No Status: Acute Code(s): R18.8 - OTHER ASCITES SNOMED Code (s): 286181273 (5) High risk for readmission Current Visit: No Status: Acute Code(s): Z91.89 - OTH PERSONAL RISK FACTORS , NOT ELSEWHERE CLASSIFIED SNOMED Code(s): 505619251 (6) Intractable abdominal pain Current Visit: No Status: Acute Code(s): R10.9 - UNSPECIFIED ABDOMINAL PAIN SNOMED Code(s): 13287718 (7) Hepatocellular carcinoma Current Visit: No Status: Chronic Priority: Medium Code(s): C22.0 - LIVER CELL CARCINOMA SNOMED Code(s): 295269879 Plan: Assessment and Recommentations: 1. Hepatocellular Carcinoma - Status Post Chemoembolization: 2012, 2015 and recent 2018 - Multiple medical opinions from multiple outside hospitals - Currently Monitoring 2. Recurrent abdominal pain related admission: - Inconsistent and unclear: Likely multifactoral - Recurrent Ascites, Recent MRSA Stools, Diarrhea - Pain Management and supportive care 3. Abdominal Ascites: Status Post 3.6 Liters off abdomen today - Recent Paracentesis was negative for malignat cells Rec: - Patient has not been able to remain out of hospital long enough to follow-up in office for monitoring of hepatocellular cancer and pain management. I would continue her on her long acting pain medication while inpatient to decrease the amount of IV breakthrough needed. - Convert to PO - Will restart her MS COntin ER 15q8 hours and Order MS IR PRN - The duration increased for IV and attempt to use IV last resort, PO first. - Bowel regimen to avoid Narcotic induced constipation.
--- NOTE | 2018-11-29 14:18 | P.PN ---
Subjective Progress Note Date: 11/29/18 This is a 73-year-old female patient of Dr. Martinez. Patient presented to the emergency room with complaints of increased swelling and pain to her abdomen and lower extremities. Patient that over the past 2 days that increased edema has been noted more so to her left and right side. Patient has known past medical history of primary liver cancer in which she follows with oncology services. Additional medical history includes recent MRSA infection in her large intestine. Patient was adequately treated with oral Vanco. Additional medical history includes liver cirrhosis, diverticulitis, anemia and diabetes mellitus. Chest x-ray completed showing no acute cardiopulmonary process. EKG completed showing sinus rhythm with frequent premature ventricular complexes. Right bundle branch block. Moderate voltage criteria for LVH may be normal variant T-wave abnormality consider lateral ischemia. Patient was previously admitted for abdominal pain. At that time patient was evaluated by infectious disease, surgical, GI and pain services. Patient's potassium also on admit 3.1. During previous admission patient had problem with hyperkalemia. Will replace per protocol and continue to monitor. Magnesium also replace per protocol will recheck. Patient currently on Lasix 40 mg by mouth daily. Will order venous Doppler of oncology to rule out DVT. BNP 461. Oncology services have been consulted. Urinary analysis showing moderate amount of leukocyte Estrace. Urine culture has been ordered. Patient denies chest pain or shortness breath. Patient denies nausea vomiting or diarrhea. Patient denies any urinary burning or frequency 11/28/2018 patient's alert and oriented 3. Patient had 2-D echo completed. This time patient is still complaining of some abdominal discomfort around stoma site. Denies chest pain or shortness breath. Patient denies nausea vomiting or diarrhea. Patient denies any urinary burning or frequency On 11/29/2018 patient's alert and oriented 3. Patient had paracentesis with 3.6 L removed yesterday. Patient does report some improvement with abdominal discomfort. 2-D echo completed. Patient denies chest pain. Patient denies nausea vomiting or diarrhea. Patient denies any urinary burning or frequency. Objective - Vital Signs Vital signs: Vital Signs Temp 97.8 F 11/29/18 12:26 Pulse 75 11/29/18 12:26 Resp 18 11/29/18 12:26 BP 111/52 11/29/18 12:26 Pulse Ox 99 01/15/19 12:26 Intake & Output 11/28/18 11/29/18 11/29/18 18:59 06:59 18:59 Intake Total 600 250 Balance 600 250 Intake: IV 10 0.9 10 Oral 600 240 Other: Voiding Method Toilet Toilet # Voids 3 1 4 # Bowel Movements 2 - Exam Head normocephalic Neck supple Lungs clear to auscultation bilaterally no wheezing or crackles Heart regular rate and rhythm S1-S2, no rub or gallop Abdomen increased abdominal ascites. Right lower quadrant ostomy. Extremities +1 lower extremity peripheral edema Neuro alert and orientated to 3 - Labs CBC & Chem 7: 11/29/18 08:01 11/29/18 08:01 Labs: Abnormal Lab Results - Last 24 Hours (Table) 11/28/18 11/29/18 11/29/18 Range/Units 21:02 07:07 08:01 WBC 3.7 L (3.8-10.6) k/uL RBC 3.18 L (3.80-5.40) m/uL Hgb 9.6 L (11.4-16.0) gm/dL Hct 30.1 L (34.0-46.0) % RDW 17.4 H (11.5-15.5) % Plt Count 72 L (150-450) k/uL Chloride (98-107) mmol/L Glucose (74-99) mg/dL POC Glucose (mg/dL) 163 H 115 H (75-99) mg/dL Calcium (8.4-10.2) mg/dL Total Bilirubin (0.2-1.3) mg/dL Alkaline Phosphatase (38-126) U/L Total Protein (6.3-8.2) g/dL Albumin (3.5-5.0) g/dL 11/29/18 11/29/18 Range/Units 08:01 11:05 WBC (3.8-10.6) k/uL RBC (3.80-5.40) m/uL Hgb (11.4-16.0) gm/dL Hct (34.0-46.0) % RDW (11.5-15.5) % Plt Count (150-450) k/uL Chloride 113 H (98-107) mmol/L Glucose 117 H (74-99) mg/dL POC Glucose (mg/dL) 204 H (75-99) mg/dL Calcium 7.7 L (8.4-10.2) mg/dL Total Bilirubin 1.7 H (0.2-1.3) mg/dL Alkaline Phosphatase 158 H (38-126) U/L Total Protein 5.4 L (6.3-8.2) g/dL Albumin 2.1 L (3.5-5.0) g/dL Microbiology - Last 24 Hours (Table) 11/28/18 14:25 Gram Stain - Preliminary Ascites Fluid Body Fluid Culture - Preliminary 11/27/18 11:34 Urine Culture - Final Urine,Voided Assessment and Plan Assessment: 1. Increased peripheral edema. Will order venous Doppler to rule out DVT. BNP 461. Patient currently maintained on by mouth Lasix 40 daily. Venous Doppler negative for lower extremity DVT. 2-D echo completed showing an EF of 45-50%. Also showing LV wall motion is hypokinetic. Will consult cardiology services. 2. Increased abdominal Ascites. Patient has had previous paracentesis. Cardiology services are following. Per oncology interventional radiology will be consulted for possible paracentesis 3. Hypokalemia. Replace per protocol will recheck. Patient previously had problems with hyperkalemia. Resolved 4. Hypomagnesemia. Replace per protocol will recheck 5. Liver cancer. Dr. odell has been consulted for oncology services. Patient follows outpatient with Dr. Yadav 12/05/2018. Per cardiology services patient does not appear to have any disease outside the liver from recent imaging 6. Chronic abdominal pain. This has been an ongoing issue for patient. During previous admission patient was seen by surgical, GI, infectious disease and pain management services. No surgical intervention was recommended. Interventional radiology will be consulted per oncology services for possible paracentesis might be contributing to ongoing abdominal pain 7. History of diverticulitis with history of bowel perforation and ileostomy placement. 8. Thrombocytopenia chronic. Secondary to chronic liver cirrhosis 9. Chronic normocytic anemia secondary to liver cirrhosis and malignancy. Oncology is following 10. Diabetes mellitus. Previous hemoglobin 7.1. Home meds resumed 11. Elevated liver enzymes. This is chronic due to patient's known liver malignancy. Continue to monitor closely 12. Urinary tract infection. Urinary analysis showing moderate amount of leukocyte Estrace. Urine culture ordered. Patient started on Cipro antibiotic DVT prophylaxis heparin. GI prophylaxis Protonix I performed an examination of the patient and discussed their management with the Nurse Practitioner. I have reviewed the Nurse Practitioner's notes and agree with the documented findings and plan of care
[2018-11-29] MEDS: MORPHINE SULFATE ER 15 MG TABLET PO SCH ×2 (17:00→23:47)
[2018-11-29 17:15] LABS: Glucose,Whole Blood 132 mg/dL (75-99)
[2018-11-29] MEDS: SODIUM CHLORIDE 0.9% 1,000 ML IV SCH (18:24)
[2018-11-29 20:39] LABS: Glucose,Whole Blood 183 mg/dL (75-99)
[2018-11-30] MEDS: MORPHINE SULFATE IR 15 MG TABLET PO PRN (02:08)
[2018-11-30] MEDS: MORPHINE SULFATE 4 MG/ML SYRINGE IV PRN ×3 (05:02→17:25)
[2018-11-30 07:23] LABS: Glucose,Whole Blood 149 mg/dL (75-99)
[2018-11-30] MEDS: PANTOPRAZOLE 40 MG TABLET PO SCH (08:45)
[2018-11-30] MEDS: NYSTATIN 100,000 UNIT/ML SUSP 500,000 UNIT/5 ML CUP PO SCH ×4 (08:45→21:00)
[2018-11-30] MEDS: HEPARIN SODIUM,PORCINE 5,000 UNIT/ML 1 ML VIAL SQ SCH ×2 (08:45→16:20)
[2018-11-30 08:46] LABS: Anisocytosis Slight; Basophils % (A) 1 %; Eosinophils # (A) 0.4 k/uL (0-0.7); Eosinophils % (A) 10 %; HGB 10.3 gm/dL (11.4-16.0); Hypochromasia Marked; Lymphocytes # (A) 1.2 k/uL (1.0-4.8); Lymphocytes % (A) 31 %; MCH 29.9 pg (25.0-35.0); MCHC 31.1 g/dL (31.0-37.0); MCV 96.1 fL (80.0-100.0); Macrocytosis Slight; Mean Platelet Volume 10.1; Monocytes # (A) 0.3 k/uL (0-1.0); Monocytes % (A) 7 %; Neutrophils # (A) 1.8 k/uL (1.3-7.7); Neutrophils % (A) 48 %; Poikilocytosis Slight; RBC 3.44 m/uL (3.80-5.40); RDW 17.3 % (11.5-15.5); WBC 3.8 k/uL (3.8-10.6)
[2018-11-30] MEDS: MORPHINE SULFATE ER 15 MG TABLET PO SCH ×2 (08:46→16:20)
[2018-11-30 08:52] LABS: Platelet Count 84 k/uL (150-450)
[2018-11-30] MEDS: METOPROLOL TARTRATE 12.5 MG TAB PO SCH (08:54)
[2018-11-30] MEDS: PREGABALIN 25 MG CAP PO SCH ×3 (08:54→21:00)
[2018-11-30] MEDS: SUCRALFATE 1 GM TAB PO SCH ×4 (08:54→21:00)
[2018-11-30] MEDS: MAGNESIUM OXIDE 400 MG TAB PO SCH (08:54)
[2018-11-30] MEDS: ONDANSETRON ODT 8 MG TAB.RAPDIS PO SCH ×2 (08:54→16:20)
[2018-11-30] MEDS: FUROSEMIDE 40 MG TAB PO SCH (08:54)
[2018-11-30] MEDS: CHOLESTYRAMINE (WITH SUGAR) 4 GM PACKET PO SCH ×3 (08:55→20:55)
[2018-11-30] MEDS: CIPROFLOXACIN HCL 250 MG TAB PO SCH ×2 (08:55→21:00)
[2018-11-30] MEDS: DICYCLOMINE 10 MG CAP PO SCH ×3 (08:55→21:00)
[2018-11-30] MEDS: INSULIN NPH 300 UNIT/3 ML VIAL SQ SCH ×2 (08:55→21:00)
[2018-11-30] MEDS: INSULIN REGULAR 100 UNIT/ML VIAL SQ SCH ×3 (08:55→17:47)
[2018-11-30 09:11] LABS: Albumin 2.3 g/dL (3.5-5.0); Potassium 4.6 mmol/L (3.5-5.1); Total Bilirubin 1.5 mg/dL (0.2-1.3); Total Protein 5.8 g/dL (6.3-8.2)
--- NOTE | 2018-11-30 11:19 | P.PN ---
Subjective Progress Note Date: 11/30/18 This is a 73-year-old female patient of Dr. Martinez. Patient presented to the emergency room with complaints of increased swelling and pain to her abdomen and lower extremities. Patient that over the past 2 days that increased edema has been noted more so to her left and right side. Patient has known past medical history of primary liver cancer in which she follows with oncology services. Additional medical history includes recent MRSA infection in her large intestine. Patient was adequately treated with oral Vanco. Additional medical history includes liver cirrhosis, diverticulitis, anemia and diabetes mellitus. Chest x-ray completed showing no acute cardiopulmonary process. EKG completed showing sinus rhythm with frequent premature ventricular complexes. Right bundle branch block. Moderate voltage criteria for LVH may be normal variant T-wave abnormality consider lateral ischemia. Patient was previously admitted for abdominal pain. At that time patient was evaluated by infectious disease, surgical, GI and pain services. Patient's potassium also on admit 3.1. During previous admission patient had problem with hyperkalemia. Will replace per protocol and continue to monitor. Magnesium also replace per protocol will recheck. Patient currently on Lasix 40 mg by mouth daily. Will order venous Doppler of oncology to rule out DVT. BNP 461. Oncology services have been consulted. Urinary analysis showing moderate amount of leukocyte Estrace. Urine culture has been ordered. Patient denies chest pain or shortness breath. Patient denies nausea vomiting or diarrhea. Patient denies any urinary burning or frequency 11/28/2018 patient's alert and oriented 3. Patient had 2-D echo completed. This time patient is still complaining of some abdominal discomfort around stoma site. Denies chest pain or shortness breath. Patient denies nausea vomiting or diarrhea. Patient denies any urinary burning or frequency On 11/29/2018 patient's alert and oriented 3. Patient had paracentesis with 3.6 L removed yesterday. Patient does report some improvement with abdominal discomfort. 2-D echo completed. Patient denies chest pain. Patient denies nausea vomiting or diarrhea. Patient denies any urinary burning or frequency. On 11/30/2018 patient remains alert and oriented 3. Patient states some improvement with edema and abdominal discomfort. Awaiting cardiology consult due to 2-D echo consult. This time patient denies chest pain or shortness of breath. Patient denies nausea vomiting or diarrhea. Patient denies any urinary burning or frequency. Patient remains on telemetry monitoring Objective - Vital Signs Vital signs: Vital Signs Temp 97 F L 11/30/18 05:17 Pulse 74 11/30/18 05:17 Resp 18 11/30/18 05:17 BP 127/73 11/30/18 05:17 Pulse Ox 98 11/30/18 05:17 Intake & Output 11/29/18 11/30/18 11/30/18 18:59 06:59 18:59 Intake Total 1080 Balance 1080 Intake: Oral 1080 Other: Voiding Method Toilet Toilet Toilet # Voids 4 2 # Bowel Movements 2 2 - Exam Head normocephalic Neck supple Lungs clear to auscultation bilaterally no wheezing or crackles Heart regular rate and rhythm S1-S2, no rub or gallop Abdomen increased abdominal ascites. Right lower quadrant ostomy. Extremities +1 lower extremity peripheral edema Neuro alert and orientated to 3 - Labs CBC & Chem 7: 11/30/18 08:20 11/30/18 08:20 Labs: Abnormal Lab Results - Last 24 Hours (Table) 11/29/18 11/29/18 11/29/18 Range/Units 11:05 17:13 20:37 RBC (3.80-5.40) m/uL Hgb (11.4-16.0) gm/dL Hct (34.0-46.0) % RDW (11.5-15.5) % Plt Count (150-450) k/uL Chloride (98-107) mmol/L Glucose (74-99) mg/dL POC Glucose (mg/dL) 204 H 132 H 183 H (75-99) mg/dL Calcium (8.4-10.2) mg/dL Total Bilirubin (0.2-1.3) mg/dL AST (14-36) U/L Alkaline Phosphatase (38-126) U/L Total Protein (6.3-8.2) g/dL Albumin (3.5-5.0) g/dL 11/30/18 11/30/18 11/30/18 Range/Units 07:12 08:20 08:20 RBC 3.44 L (3.80-5.40) m/uL Hgb 10.3 L (11.4-16.0) gm/dL Hct 33.0 L (34.0-46.0) % RDW 17.3 H (11.5-15.5) % Plt Count 84 L (150-450) k/uL Chloride 111 H (98-107) mmol/L Glucose 154 H (74-99) mg/dL POC Glucose (mg/dL) 149 H (75-99) mg/dL Calcium 8.0 L (8.4-10.2) mg/dL Total Bilirubin 1.5 H (0.2-1.3) mg/dL AST 42 H (14-36) U/L Alkaline Phosphatase 205 H (38-126) U/L Total Protein 5.8 L (6.3-8.2) g/dL Albumin 2.3 L (3.5-5.0) g/dL Microbiology - Last 24 Hours (Table) 11/28/18 14:25 Gram Stain - Preliminary Ascites Fluid Body Fluid Culture - Preliminary Assessment and Plan Assessment: 1. Increased peripheral edema. Will order venous Doppler to rule out DVT. BNP 461. Patient currently maintained on by mouth Lasix 40 daily. Venous Doppler negative for lower extremity DVT. 2-D echo completed showing an EF of 45-50%. Also showing LV wall motion is hypokinetic. Will consult cardiology services. 2. Increased abdominal Ascites. Patient has had previous paracentesis. Cardiology services are following. Per oncology interventional radiology will be consulted for possible paracentesis 3. Hypokalemia. Replace per protocol will recheck. Patient previously had problems with hyperkalemia. Resolved 4. Hypomagnesemia. Replace per protocol will recheck 5. Liver cancer. Dr. odell has been consulted for oncology services. Patient follows outpatient with Dr. Yadav 12/05/2018. Per cardiology services patient does not appear to have any disease outside the liver from recent imaging 6. Chronic abdominal pain. This has been an ongoing issue for patient. During previous admission patient was seen by surgical, GI, infectious disease and pain management services. No surgical intervention was recommended. Interventional radiology will be consulted per oncology services for possible paracentesis might be contributing to ongoing abdominal pain 7. History of diverticulitis with history of bowel perforation and ileostomy placement. 8. Thrombocytopenia chronic. Secondary to chronic liver cirrhosis 9. Chronic normocytic anemia secondary to liver cirrhosis and malignancy. Oncology is following 10. Diabetes mellitus. Previous hemoglobin 7.1. Home meds resumed 11. Elevated liver enzymes. This is chronic due to patient's known liver malignancy. Continue to monitor closely 12. Urinary tract infection. Urinary analysis showing moderate amount of leukocyte Estrace. Urine culture ordered. Patient started on Cipro antibiotic DVT prophylaxis heparin. GI prophylaxis Protonix I performed an examination of the patient and discussed their management with the Nurse Practitioner. I have reviewed the Nurse Practitioner's notes and agree with the documented findings and plan of care
[2018-11-30 11:21] LABS: Glucose,Whole Blood 216 mg/dL (75-99)
[2018-11-30] MEDS: clonazePAM 0.5 MG TAB PO SCH (12:56)
[2018-11-30] MEDS: SPIRONOLACTONE 25 MG TAB PO SCH (12:56)
--- NOTE | 2018-11-30 13:05 | P.CRDCN ---
History of Present Illness History of present illness: This is a pleasant 73-year-old female past medical history significant for hypertension, liver CA since 2010, frequent paracentesis procedures due to ascites, diabetes mellitus and former nicotine dependence. She denies history of coronary artery disease and has never seen a turn laster for any reason. She presented to the hospital with increased abdominal swelling and has undergone a paracentesis with over 3 liters removed yesterday. An echocardiogram obtained on this admission reveals mildly impaired left ventricular systolic function with ejection fraction 45-50%, basal posterior, basal inferior and basal inferior septal wall motion hypokinesia noted, mildly dilated left atrium, moderate aortic valve sclerosis with mild stenosis and the mean gradient across the valve of 16 mmHg. For this reason we have been asked to see her in consultation. She denies ever having symptoms of chest pain, shortness of breath, dizziness or palpitations. She also denies any PND or orhpnea. She complains of chronic left lower extremity swelling. Venous duplex negative for DVT. EKG on admission reveals sinus mechanism with right bundle branch block pattern and nonspecific abnormalities laterally. She also has PVCs. Chest x-ray on admission negative for an acute cardiopulmonary process. Laboratory data reviewed, hemoglobin 10.3, platelets 84, sodium 138, potassium 4.6, creatinine 0.95, magnesium 1.5, cardiac enzymes negative 1 and NT proBNP 461. Current cardiac medications include metoprolol 12.5 mg daily and Lasix 40 mg daily. At the time of my exam: CONSTITUTIONAL: Denies fever. Denies chills. EYES: Denies blurred vision. Denies vision changes. Denies eye pain. EARS, NOSE, MOUTH & THROAT: Denies headache. Denies sore throat. Denies ear pain. CARDIOVASCULAR: Denies chest pain. Denies shortness of breath. Denies orthopnea. Denies PND. Denies palpitations. RESPIRATORY: Denies cough. GASTROINTESTINAL: Denies abdominal pain. Denies diarrhea. Denies constipation. Denies nausea. Denies vomiting. MUSCULOSKELETAL: Denies myalgias. INTEGUMENTARY: Denies pruitis. Denies rash. NEUROLOGIC: Denies numbness. Denies tingling. Denies weakness. PSYCHIATRIC: Denies anxiety. Denies depression. ENDOCRINE: Denies fatigue. Denies weight change. Denies polydipsia. Denies polyurina. GENITOURINARY: Denies burning, hematuria or urgency with micturation. HEMATOLOGIC: Denies history of anemia. Denies bleeding. Blood pressure 127/73 heart rate 74 afebrile maintaining oxygen saturation on room air GENERAL: This is a 73-year-old female in no apparent distress at the time of my examination. HEENT: Head is atraumatic, normocephalic. Pupils are equal, round. Sclerae anicteric. Conjunctivae are clear. Mucous membranes of the mouth are moist. Neck is supple. There is no jugular venous distention. No carotid bruit is heard. LUNGS: Clear to auscultation no wheezes, rales or rhonchi. No chest wall tenderness is noted on palpation or with deep breathing. HEART: Regular rate and rhythm with systolic ejection murmur at the base, no rubs or gallops. S1 and S2 heard. ABDOMEN: Soft, nontender. Bowel sounds are heard. No organomegaly noted. EXTREMITIES: Trace non-pitting edema to left lower extremity, no edema on the right. No calf tenderness noted. VASCULAR: Radial and dorsalis pedis pulses palpated, no evidence of clubbing. NEUROLOGIC: Patient is awake, alert and oriented x3. ASSESSMENT New onset systolic heart failure, currently euvolemic. Unsure if related to ischemic or non-ischemic cause Aortic stenosis, mean 16 mmHg Hypomagnesemia Liver cancer Recurrent ascites requiring paracentesis Hypertension Diabetes mellitus PLAN Echo has been reviewed. Add on aldactone 25 mg daily and losartain 25 mg daily. She is currently euvolemic from a cardiac perspective. No symptoms of acute heart failure or angina. No further cardiac testing on this admission. Follow up with Dr. Lux in the office in 2-3 weeks. Plan has been discussed with her in great detail. Thank you kindly for this consultation. Nurse Practitioner note has been reviewed, I agree with a documented findings and plan of care. Patient was seen and examined. Past Medical History Past Medical History: Cancer, Diabetes Mellitus, Hypertension, Liver Disease Additional Past Medical History / Comment(s): liver ca- had chemo 10-03-18,past ascities-paracentesis, ( ulcer(sx),diveticulitis anx/depression History of Any Multi-Drug Resistant Organisms: MRSA Date of last positivie culture/infection: 10/23/18 MDRO Source:: MRSA STOOL Past Surgical History: Appendectomy, Bowel Resection, Section, Cholecystectomy, Hysterectomy, Tonsillectomy Additional Past Surgical History / Comment(s): rt rotator cuff repair,carpal tunnel release .liver bx,ilieostomy ,11-02-18 had paracentesis. Multiple chemo embolizations of liver tumors Past Anesthesia/Blood Transfusion Reactions: No Reported Reaction Past Psychological History: Anxiety, Depression Additional Psychological History / Comment(s): Reformed smoker. . Retired. No experience. No animal exposures Smoking Status: Former smoker Past Alcohol Use History: None Reported Additional Past Alcohol Use History / Comment(s): started smoking 1962 and quit 1965 Past Drug Use History: None Reported - Past Family History Mother History Unknown: Yes Family Medical History: Congestive Heart Failure (CHF) Medications and Allergies Home Medications Medication Instructions Recorded Confirmed Type Dicyclomine [Bentyl] 10 mg PO TID 10/23/18 11/26/18 History Furosemide [Lasix] 40 mg PO DAILY 10/23/18 11/26/18 History Omeprazole [PriLOSEC] 20 mg PO BID 10/23/18 11/26/18 History Sucralfate [Carafate] 1 gm PO QID 10/23/18 11/26/18 History Insulin NPH Human Isophane 18 unit SQ BID 10/24/18 11/26/18 History [NovoLIN N] Insulin Regular, Human [NovoLIN R] 8 unit SQ AC-TID 10/24/18 11/26/18 History Magnesium 200 mg PO DAILY 10/24/18 11/26/18 History Metoprolol Tartrate 12.5 mg PO DAILY 10/24/18 11/26/18 History Ondansetron [Zofran ODT] 8 mg PO Q8HR 10/24/18 11/26/18 History Nystatin 100,000 Unit/ml Susp 500,000 unit PO QID #12 cup 11/03/18 11/26/18 Rx [Mycostatin Oral Susp] clonazePAM [KlonoPIN] 0.5 mg PO DAILY tab 11/03/18 11/26/18 Rx Cholestyramine (with Sugar) 4 gm PO TID #21 packet 11/04/18 11/26/18 Rx [Questran Packet] Morphine Sulfate ER [Ms Contin] 15 mg PO Q8H #9 tablet 11/22/18 11/26/18 Rx Pregabalin [Lyrica] 25 mg PO TID #9 cap 11/22/18 11/26/18 Rx Allergies Allergy/AdvReac Type Severity Reaction Status Date / Time GREG Inhibitors Allergy Cough Verified 11/26/18 16:07 amlodipine Allergy Rash/Hives Verified 11/26/18 16:07 oxycodone Allergy Rash/Hives Verified 11/26/18 16:07 Penicillins Allergy Rash/Hives Verified 11/26/18 16:07 hydromorphone [From Dilaudid] AdvReac Unknown Verified 11/26/18 16:07 sodium dodecyclbenzene Allergy Rash/Hives Uncoded 11/26/18 14:57 sulfonate Physical Exam Vitals: Vital Signs Temp Pulse Pulse Resp BP Pulse Ox 11/30/18 05:17 97 F L 74 18 127/73 98 11/29/18 21:09 97.1 F L 67 18 106/60 98 11/29/18 12:26 97.8 F 75 18 111/52 99 Intake and Output 11/29/18 11/30/18 11/30/18 22:59 06:59 14:59 Intake Total 540 540 Balance 540 540 Intake: Oral 540 540 Other: Voiding Method Toilet Toilet # Voids 2 2 # Bowel Movements 1 2 Results 11/30/18 08:20 11/30/18 08:20 Cardiac Enzymes 11/30/18 Range/Units 08:20 AST 42 H (14-36) U/L CBC 11/30/18 Range/Units 08:20 WBC 3.8 (3.8-10.6) k/uL RBC 3.44 L (3.80-5.40) m/uL Hgb 10.3 L (11.4-16.0) gm/dL Hct 33.0 L (34.0-46.0) % Plt Count 84 L (150-450) k/uL Comprehensive Metabolic Panel 11/30/18 Range/Units 08:20 Sodium 138 (137-145) mmol/L Potassium 4.6 (3.5-5.1) mmol/L Chloride 111 H (98-107) mmol/L Carbon Dioxide 24 (22-30) mmol/L BUN 10 (7-17) mg/dL Creatinine 0.95 (0.52-1.04) mg/dL Glucose 154 H (74-99) mg/dL Calcium 8.0 L (8.4-10.2) mg/dL AST 42 H (14-36) U/L ALT 25 (9-52) U/L Alkaline Phosphatase 205 H (38-126) U/L Total Protein 5.8 L (6.3-8.2) g/dL Albumin 2.3 L (3.5-5.0) g/dL Current Medications Generic Name Dose Route Start Last Admin Trade Name Josue PRN Reason Stop Dose Admin Cholestyramine Resin 4 gm 11/26/18 22:00 11/30/18 08:55 Questran PO 4 gm TID JENNY Administration Ciprofloxacin 250 mg 11/27/18 21:00 11/30/18 08:55 Cipro PO 250 mg BID JENNY Administration Clonazepam 0.5 mg 11/27/18 09:00 11/29/18 08:18 Klonopin PO 0.5 mg DAILY JENNY Administration Dicyclomine HCl 10 mg 11/26/18 22:00 11/30/18 08:55 Bentyl PO 10 mg TID JENNY Administration Furosemide 40 mg 11/27/18 09:00 11/30/18 08:54 Lasix PO 40 mg DAILY JENNY Administration Heparin Sodium (Porcine) 5,000 unit 11/27/18 00:00 11/30/18 08:45 Heparin SQ 5,000 unit Q8HR JENNY Administration Sodium Chloride 1,000 mls @ 20 mls/hr 11/26/18 19:30 11/29/18 18:24 Saline 0.9% IV Not Given .Q24H JENNY Insulin Human NPH 18 unit 11/26/18 21:00 11/30/18 08:55 Humulin N SQ 18 unit BID JENNY Administration Insulin Human Regular 8 unit 11/27/18 07:30 11/30/18 08:55 Humulin R SQ 8 unit AC-TID JENNY Administration Magnesium Oxide 200 mg 11/27/18 09:00 11/30/18 08:54 Mag-Ox PO 200 mg DAILY JENNY Administration Metoprolol Tartrate 12.5 mg 11/27/18 09:00 11/30/18 08:54 Lopressor PO 12.5 mg DAILY JENNY Administration Morphine Sulfate 15 mg 11/29/18 16:00 11/30/18 08:46 Ms Contin PO 15 mg Q8HR JENNY Administration Morphine Sulfate 15 mg 11/29/18 12:41 Msir PO Q4HR PRN Pain Morphine Sulfate 4 mg 11/29/18 12:44 11/30/18 05:02 Morphine Sulfate (Inj) IV 4 mg Q6HR PRN Administration Severe Pain Naloxone HCl 0.2 mg 11/26/18 19:24 Narcan IV Q2M PRN Opioid Reversal Nystatin 500,000 unit 11/26/18 22:00 11/30/18 08:45 Mycostatin Oral Susp PO 500,000 unit QID JENNY Administration Ondansetron HCl 8 mg 11/27/18 00:00 11/30/18 08:54 Zofran Odt PO 8 mg Q8HR [facility] Administration Pantoprazole Sodium 40 mg 11/27/18 07:30 11/30/18 08:45 Protonix PO 40 mg AC-[id number] [facility] Administration Pregabalin 25 mg 11/26/18 22:00 11/30/18 08:54 Lyrica PO 25 mg TID [facility] Administration Sucralfate 1 gm 11/26/18 22:00 11/30/18 08:54 Carafate PO 1 gm QID [facility] Administration Intake and Output 11/29/18 11/30/18 11/30/18 22:59 06:59 14:59 Intake Total 540 540 Balance 540 540 Intake: Oral 540 540 Other: Voiding Method Toilet Toilet # Voids 2 2 # Bowel Movements 1 2 11/30/18 08:20 11/30/18 08:20
--- NOTE | 2018-11-30 16:26 | P.PN ---
Subjective Progress Note Date: 11/30/18 Principal diagnosis: Hepatocellular Feeling better after paracentesis, today she has more non-specific complaints, she is still not moving out of bed, encouraged to increase activity. Her lOng acting medication was restarted yesterday Objective - Vital Signs Vital signs: Vital Signs Temp 98 F 11/30/18 11:56 Pulse 69 11/30/18 11:56 Resp 18 11/30/18 11:56 BP 113/60 11/30/18 11:56 Pulse Ox 98 11/30/18 11:56 Intake & Output 11/29/18 11/30/18 11/30/18 18:59 06:59 18:59 Intake Total 1080 Balance 1080 Intake: Oral 1080 Other: Voiding Method Toilet Toilet Toilet # Voids 4 2 2 # Bowel Movements 2 2 - Exam - Constitutional General appearance: no acute distress - EENT Eyes: EOMI, PERRLA ENT: hearing grossly normal, normal oropharynx - Neck Neck: no lymphadenopathy Thyroid: bilateral: normal size - Respiratory Respiratory: bilateral: CTA - Cardiovascular Rhythm: regular Heart sounds: normal: S1, S2 - Gastrointestinal Right lower quadrant ostomy General gastrointestinal: distended, normal bowel sounds, soft - Integumentary Integumentary: normal - Neurologic Neurologic: CNII-XII intact - Musculoskeletal Musculoskeletal: generalized weakness, strength equal bilaterally - Psychiatric Psychiatric: A&O x's 3, appropriate affect - Labs CBC & Chem 7: 11/30/18 08:20 11/30/18 08:20 Labs: Abnormal Lab Results - Last 24 Hours (Table) 11/29/18 11/29/18 11/30/18 Range/Units 17:13 20:37 07:12 RBC (3.80-5.40) m/uL Hgb (11.4-16.0) gm/dL Hct (34.0-46.0) % RDW (11.5-15.5) % Plt Count (150-450) k/uL Chloride (98-107) mmol/L Glucose (74-99) mg/dL POC Glucose (mg/dL) 132 H 183 H 149 H (75-99) mg/dL Calcium (8.4-10.2) mg/dL Total Bilirubin (0.2-1.3) mg/dL AST (14-36) U/L Alkaline Phosphatase (38-126) U/L Total Protein (6.3-8.2) g/dL Albumin (3.5-5.0) g/dL 11/30/18 11/30/18 11/30/18 Range/Units 08:20 08:20 11:09 RBC 3.44 L (3.80-5.40) m/uL Hgb 10.3 L (11.4-16.0) gm/dL Hct 33.0 L (34.0-46.0) % RDW 17.3 H (11.5-15.5) % Plt Count 84 L (150-450) k/uL Chloride 111 H (98-107) mmol/L Glucose 154 H (74-99) mg/dL POC Glucose (mg/dL) 216 H (75-99) mg/dL Calcium 8.0 L (8.4-10.2) mg/dL Total Bilirubin 1.5 H (0.2-1.3) mg/dL AST 42 H (14-36) U/L Alkaline Phosphatase 205 H (38-126) U/L Total Protein 5.8 L (6.3-8.2) g/dL Albumin 2.3 L (3.5-5.0) g/dL Microbiology - Last 24 Hours (Table) 11/28/18 14:25 Gram Stain - Preliminary Ascites Fluid Body Fluid Culture - Preliminary Assessment and Plan (1) Liver cancer Current Visit: Yes Status: Acute Code(s): C22.9 - MALIG NEOPLASM OF LIVER, NOT SPECIFIED PRIMARY OR SEC SNOMED Code(s): 27450139 (2) Peripheral edema Current Visit: Yes Status: Acute Code(s): R60.9 - EDEMA, UNSPECIFIED SNOMED Code(s): 153980683 (3) Abdominal pain Current Visit: No Status: Acute Code(s): R10.9 - UNSPECIFIED ABDOMINAL PAIN SNOMED Code(s): 18318456 (4) Ascites Current Visit: No Status: Acute Code(s): R18.8 - OTHER ASCITES SNOMED Code (s): 545803490 (5) High risk for readmission Current Visit: No Status: Acute Code(s): Z91.89 - OTH PERSONAL RISK FACTORS , NOT ELSEWHERE CLASSIFIED SNOMED Code(s): 011340824 (6) Intractable abdominal pain Current Visit: No Status: Acute Code(s): R10.9 - UNSPECIFIED ABDOMINAL PAIN SNOMED Code(s): 94892819 (7) Hepatocellular carcinoma Current Visit: No Status: Chronic Priority: Medium Code(s): C22.0 - LIVER CELL CARCINOMA SNOMED Code(s): 775043461 Plan: Assessment and Recommentations: 1. Hepatocellular Carcinoma - Status Post Chemoembolization: 2012, 2015 and recent 2018 - Multiple medical opinions from multiple outside hospitals - Currently Monitoring 2. Recurrent abdominal pain related admission: - Inconsistent and unclear: Likely multifactoral - Recurrent Ascites, Recent MRSA Stools, Diarrhea - Pain Management and supportive care 3. Abdominal Ascites: Status Post 3.6 Liters off abdomen today - Recent Paracentesis was negative for malignat cells Rec: - Patient has not been able to remain out of hospital long enough to follow-up in office for monitoring of hepatocellular cancer and pain management. I would continue her on her long acting pain medication while inpatient to decrease the amount of IV breakthrough needed. - Convert to PO - Will restart her MS COntin ER 15q8 hours and Order MS IR PRN - The duration increased for IV and attempt to use IV last resort, PO first. - Bowel regimen to avoid Narcotic induced constipation. - Long discussion on up and moving, staying out of hospital and adhering to follow-up oputpatient appointments
[2018-11-30 17:18] LABS: Glucose,Whole Blood 110 mg/dL (75-99)
[2018-11-30] MEDS: SODIUM CHLORIDE 0.9% 1,000 ML IV SCH (19:58)
[2018-11-30 20:13] LABS: Glucose,Whole Blood 194 mg/dL (75-99)
[2018-12-01] MEDS: ONDANSETRON ODT 8 MG TAB.RAPDIS PO SCH ×4 (01:03→23:49)
[2018-12-01] MEDS: MORPHINE SULFATE ER 15 MG TABLET PO SCH ×4 (01:05→23:49)
[2018-12-01] MEDS: HEPARIN SODIUM,PORCINE 5,000 UNIT/ML 1 ML VIAL SQ SCH ×4 (01:05→23:49)
[2018-12-01] MEDS: MORPHINE SULFATE 4 MG/ML SYRINGE IV PRN ×3 (06:34→21:01)
[2018-12-01 07:23] LABS: Glucose,Whole Blood 125 mg/dL (75-99)
[2018-12-01] MEDS: LOSARTAN 25 MG TAB PO SCH (08:05)
[2018-12-01] MEDS: MAGNESIUM OXIDE 400 MG TAB PO SCH (08:05)
[2018-12-01] MEDS: INSULIN REGULAR 100 UNIT/ML VIAL SQ SCH ×3 (08:06→17:34)
[2018-12-01] MEDS: DICYCLOMINE 10 MG CAP PO SCH ×3 (08:06→20:57)
[2018-12-01] MEDS: SUCRALFATE 1 GM TAB PO SCH ×4 (08:06→20:57)
[2018-12-01] MEDS: SPIRONOLACTONE 25 MG TAB PO SCH (08:06)
[2018-12-01] MEDS: INSULIN NPH 300 UNIT/3 ML VIAL SQ SCH ×2 (08:06→20:58)
[2018-12-01] MEDS: PANTOPRAZOLE 40 MG TABLET PO SCH (08:06)
[2018-12-01] MEDS: CIPROFLOXACIN HCL 250 MG TAB PO SCH ×2 (08:06→20:57)
[2018-12-01] MEDS: PREGABALIN 25 MG CAP PO SCH ×3 (08:06→20:58)
[2018-12-01] MEDS: METOPROLOL TARTRATE 12.5 MG TAB PO SCH (08:06)
[2018-12-01] MEDS: FUROSEMIDE 40 MG TAB PO SCH (08:06)
[2018-12-01] MEDS: CHOLESTYRAMINE (WITH SUGAR) 4 GM PACKET PO SCH ×3 (08:07→20:57)
[2018-12-01] MEDS: NYSTATIN 100,000 UNIT/ML SUSP 500,000 UNIT/5 ML CUP PO SCH ×4 (08:07→20:58)
[2018-12-01 08:53] LABS: Anisocytosis Slight; Basophils % (A) 1 %; Eosinophils # (A) 0.2 k/uL (0-0.7); Eosinophils % (A) 6 %; HCT 32.4 % (34.0-46.0); Hypochromasia Marked; Lymphocytes % (A) 25 %; MCH 29.7 pg (25.0-35.0); MCHC 30.8 g/dL (31.0-37.0); MCV 96.4 fL (80.0-100.0); Macrocytosis Slight; Mean Platelet Volume 9.8; Monocytes # (A) 0.3 k/uL (0-1.0); Monocytes % (A) 7 %; Neutrophils # (A) 2.4 k/uL (1.3-7.7); Neutrophils % (A) 58 %; RBC 3.36 m/uL (3.80-5.40); RDW 17.4 % (11.5-15.5)
[2018-12-01 09:02] LABS: Albumin 2.4 g/dL (3.5-5.0); Calcium 8.2 mg/dL (8.4-10.2); Magnesium 1.7 mg/dL (1.6-2.3); Platelet Count 83 k/uL (150-450); Potassium 5.2 mmol/L (3.5-5.1); Total Bilirubin 1.8 mg/dL (0.2-1.3)
[2018-12-01] MEDS: clonazePAM 0.5 MG TAB PO SCH (10:37)
[2018-12-01 11:50] LABS: Glucose,Whole Blood 152 mg/dL (75-99)
--- NOTE | 2018-12-01 12:04 | P.PN ---
Subjective Progress Note Date: 12/01/18 This is a 73-year-old female patient of Dr. Martinez. Patient presented to the emergency room with complaints of increased swelling and pain to her abdomen and lower extremities. Patient that over the past 2 days that increased edema has been noted more so to her left and right side. Patient has known past medical history of primary liver cancer in which she follows with oncology services. Additional medical history includes recent MRSA infection in her large intestine. Patient was adequately treated with oral Vanco. Additional medical history includes liver cirrhosis, diverticulitis, anemia and diabetes mellitus. Chest x-ray completed showing no acute cardiopulmonary process. EKG completed showing sinus rhythm with frequent premature ventricular complexes. Right bundle branch block. Moderate voltage criteria for LVH may be normal variant T-wave abnormality consider lateral ischemia. Patient was previously admitted for abdominal pain. At that time patient was evaluated by infectious disease, surgical, GI and pain services. Patient's potassium also on admit 3.1. During previous admission patient had problem with hyperkalemia. Will replace per protocol and continue to monitor. Magnesium also replace per protocol will recheck. Patient currently on Lasix 40 mg by mouth daily. Will order venous Doppler of oncology to rule out DVT. BNP 461. Oncology services have been consulted. Urinary analysis showing moderate amount of leukocyte Estrace. Urine culture has been ordered. Patient denies chest pain or shortness breath. Patient denies nausea vomiting or diarrhea. Patient denies any urinary burning or frequency 11/28/2018 patient's alert and oriented 3. Patient had 2-D echo completed. This time patient is still complaining of some abdominal discomfort around stoma site. Denies chest pain or shortness breath. Patient denies nausea vomiting or diarrhea. Patient denies any urinary burning or frequency On 11/29/2018 patient's alert and oriented 3. Patient had paracentesis with 3.6 L removed yesterday. Patient does report some improvement with abdominal discomfort. 2-D echo completed. Patient denies chest pain. Patient denies nausea vomiting or diarrhea. Patient denies any urinary burning or frequency. On 11/30/2018 patient remains alert and oriented 3. Patient states some improvement with edema and abdominal discomfort. Awaiting cardiology consult due to 2-D echo consult. This time patient denies chest pain or shortness of breath. Patient denies nausea vomiting or diarrhea. Patient denies any urinary burning or frequency. Patient remains on telemetry monitoring On 12/01/2018 patient remains alert and oriented 3. Patient was seen by cardiology services. Medications adjusted. Patient states she is unable to go home until tomorrow due to ride. At this time patient states improvement with abdominal pain. Patient denies chest pain or shortness breath. Patient denies nausea vomiting or diarrhea. Patient denies any urinary burning or frequency. Objective - Vital Signs Vital signs: Vital Signs Temp 97.8 F 12/01/18 05:00 Pulse 73 12/01/18 05:00 Resp 16 12/01/18 05:00 BP 96/54 12/01/18 05:00 Pulse Ox 98 12/01/18 05:00 Intake & Output 11/30/18 12/01/18 12/01/18 18:59 06:59 18:59 Intake Total 1080 Balance 1080 Intake: Oral 1080 Other: Voiding Method Toilet Toilet Toilet # Voids 2 2 # Bowel Movements 2 - Exam Head normocephalic Neck supple Lungs clear to auscultation bilaterally no wheezing or crackles Heart regular rate and rhythm S1-S2, no rub or gallop Abdomen increased abdominal ascites. Right lower quadrant ostomy. Extremities no edema Neuro alert and orientated to 3 - Labs CBC & Chem 7: 12/01/18 07:56 12/01/18 07:56 Labs: Abnormal Lab Results - Last 24 Hours (Table) 11/30/18 11/30/18 12/01/18 Range/Units 17:16 20:10 07:22 RBC (3.80-5.40) m/uL Hgb (11.4-16.0) gm/dL Hct (34.0-46.0) % MCHC (31.0-37.0) g/dL RDW (11.5-15.5) % Plt Count (150-450) k/uL Potassium (3.5-5.1) mmol/L Chloride (98-107) mmol/L Glucose (74-99) mg/dL POC Glucose (mg/dL) 110 H 194 H 125 H (75-99) mg/dL Calcium (8.4-10.2) mg/dL Total Bilirubin (0.2-1.3) mg/dL AST (14-36) U/L Alkaline Phosphatase (38-126) U/L Total Protein (6.3-8.2) g/dL Albumin (3.5-5.0) g/dL 12/01/18 12/01/18 12/01/18 Range/Units 07:56 07:56 11:47 RBC 3.36 L (3.80-5.40) m/uL Hgb 10.0 L (11.4-16.0) gm/dL Hct 32.4 L (34.0-46.0) % MCHC 30.8 L (31.0-37.0) g/dL RDW 17.4 H (11.5-15.5) % Plt Count 83 L (150-450) k/uL Potassium 5.2 H (3.5-5.1) mmol/L Chloride 110 H (98-107) mmol/L Glucose 115 H (74-99) mg/dL POC Glucose (mg/dL) 152 H (75-99) mg/dL Calcium 8.2 L (8.4-10.2) mg/dL Total Bilirubin 1.8 H (0.2-1.3) mg/dL AST 43 H (14-36) U/L Alkaline Phosphatase 194 H (38-126) U/L Total Protein 6.0 L (6.3-8.2) g/dL Albumin 2.4 L (3.5-5.0) g/dL Microbiology - Last 24 Hours (Table) 11/28/18 14:25 Gram Stain - Preliminary Ascites Fluid Body Fluid Culture - Preliminary Assessment and Plan Assessment: 1. Increased peripheral edema. Will order venous Doppler to rule out DVT. BNP 461. Patient currently maintained on by mouth Lasix 40 daily. Venous Doppler negative for lower extremity DVT. 2-D echo completed showing an EF of 45-50%. Also showing LV wall motion is hypokinetic. Per cardiology services Aldactone 25 mg daily and losartan 25 mg daily has been added. No symptoms of acute heart failure. Patient to follow-up with Dr. Lux in office in 2-3 weeks 2. Increased abdominal Ascites. Patient has had previous paracentesis. Cardiology services are following. Per oncology interventional radiology will be consulted for possible paracentesis 3. Hypokalemia. Replace per protocol will recheck. Patient previously had problems with hyperkalemia. Resolved 4. Hypomagnesemia. Replace per protocol will recheck 5. Liver cancer. Dr. odlel has been consulted for oncology services. Patient follows outpatient with Dr. Yadav 12/05/2018. Per cardiology services patient does not appear to have any disease outside the liver from recent imaging 6. Chronic abdominal pain. This has been an ongoing issue for patient. During previous admission patient was seen by surgical, GI, infectious disease and pain management services. No surgical intervention was recommended. Interventional radiology will be consulted per oncology services for possible paracentesis might be contributing to ongoing abdominal pain 7. History of diverticulitis with history of bowel perforation and ileostomy placement. 8. Thrombocytopenia chronic. Secondary to chronic liver cirrhosis 9. Chronic normocytic anemia secondary to liver cirrhosis and malignancy. Oncology is following 10. Diabetes mellitus. Previous hemoglobin A1C7.1. Home meds resumed 11. Elevated liver enzymes. This is chronic due to patient's known liver malignancy. Continue to monitor closely 12. Urinary tract infection. Urinary analysis showing moderate amount of leukocyte Estrace. Urine culture ordered. Patient started on Cipro antibiotic DVT prophylaxis heparin. GI prophylaxis Protonix I performed an examination of the patient and discussed their management with the Nurse Practitioner. I have reviewed the Nurse Practitioner's notes and agree with the documented findings and plan of care
--- NOTE | 2018-12-01 16:58 | P.PN ---
Subjective Progress Note Date: 12/01/18 Principal diagnosis: Hepatocellular Feeling better after paracentesis, today she has more non-specific complaints, she is still not moving out of bed, encouraged to increase activity. Her lOng acting medication was restarted I explained to patient our goal has to be to keep her out of the hospital. She is frustrated that when she calls to make appointment with Dr. Yadav she has a 3 -4 week wait, although every time an appointment is scheduled she has presented to emergency and missed appointment. She understands, although states but "I will be back this hernia just acts up" Objective - Vital Signs Vital signs: Vital Signs Temp 98.9 F 12/01/18 12:33 Pulse 85 12/01/18 12:33 Resp 16 12/01/18 12:33 BP 116/56 12/01/18 12:33 Pulse Ox 98 12/01/18 12:33 Intake & Output 11/30/18 12/01/18 12/01/18 18:59 06:59 18:59 Intake Total 1080 Balance 1080 Intake: Oral 1080 Other: Voiding Method Toilet Toilet Toilet # Voids 2 2 # Bowel Movements 2 - Exam - Constitutional General appearance: no acute distress - EENT Eyes: EOMI, PERRLA ENT: hearing grossly normal, normal oropharynx - Neck Neck: no lymphadenopathy Thyroid: bilateral: normal size - Respiratory Respiratory: bilateral: CTA - Cardiovascular Rhythm: regular Heart sounds: normal: S1, S2 - Gastrointestinal Right lower quadrant ostomy General gastrointestinal: distended, normal bowel sounds, soft - Integumentary Integumentary: normal - Neurologic Neurologic: CNII-XII intact - Musculoskeletal Musculoskeletal: generalized weakness, strength equal bilaterally - Psychiatric Psychiatric: A&O x's 3, appropriate affect - Labs CBC & Chem 7: 12/01/18 07:56 12/01/18 07:56 Labs: Abnormal Lab Results - Last 24 Hours (Table) 11/30/18 11/30/18 12/01/18 Range/Units 17:16 20:10 07:22 RBC (3.80-5.40) m/uL Hgb (11.4-16.0) gm/dL Hct (34.0-46.0) % MCHC (31.0-37.0) g/dL RDW (11.5-15.5) % Plt Count (150-450) k/uL Potassium (3.5-5.1) mmol/L Chloride (98-107) mmol/L Glucose (74-99) mg/dL POC Glucose (mg/dL) 110 H 194 H 125 H (75-99) mg/dL Calcium (8.4-10.2) mg/dL Total Bilirubin (0.2-1.3) mg/dL AST (14-36) U/L Alkaline Phosphatase (38-126) U/L Total Protein (6.3-8.2) g/dL Albumin (3.5-5.0) g/dL 12/01/18 12/01/18 12/01/18 Range/Units 07:56 07:56 11:47 RBC 3.36 L (3.80-5.40) m/uL Hgb 10.0 L (11.4-16.0) gm/dL Hct 32.4 L (34.0-46.0) % MCHC 30.8 L (31.0-37.0) g/dL RDW 17.4 H (11.5-15.5) % Plt Count 83 L (150-450) k/uL Potassium 5.2 H (3.5-5.1) mmol/L Chloride 110 H (98-107) mmol/L Glucose 115 H (74-99) mg/dL POC Glucose (mg/dL) 152 H (75-99) mg/dL Calcium 8.2 L (8.4-10.2) mg/dL Total Bilirubin 1.8 H (0.2-1.3) mg/dL AST 43 H (14-36) U/L Alkaline Phosphatase 194 H (38-126) U/L Total Protein 6.0 L (6.3-8.2) g/dL Albumin 2.4 L (3.5-5.0) g/dL Microbiology - Last 24 Hours (Table) 11/28/18 14:25 Gram Stain - Preliminary Ascites Fluid Body Fluid Culture - Preliminary Assessment and Plan (1) Liver cancer Current Visit: Yes Status: Acute Code(s): C22.9 - MALIG NEOPLASM OF LIVER, NOT SPECIFIED PRIMARY OR SEC SNOMED Code(s): 94241981 (2) Peripheral edema Current Visit: Yes Status: Acute Code(s): R60.9 - EDEMA, UNSPECIFIED SNOMED Code(s): 111267918 (3) Abdominal pain Current Visit: No Status: Acute Code(s): R10.9 - UNSPECIFIED ABDOMINAL PAIN SNOMED Code(s): 82717306 (4) Ascites Current Visit: No Status: Acute Code(s): R18.8 - OTHER ASCITES SNOMED Code (s): 878230392 (5) High risk for readmission Current Visit: No Status: Acute Code(s): Z91.89 - OTH PERSONAL RISK FACTORS , NOT ELSEWHERE CLASSIFIED SNOMED Code(s): 506632861 (6) Intractable abdominal pain Current Visit: No Status: Acute Code(s): R10.9 - UNSPECIFIED ABDOMINAL PAIN SNOMED Code(s): 30837033 (7) Hepatocellular carcinoma Current Visit: No Status: Chronic Priority: Medium Code(s): C22.0 - LIVER CELL CARCINOMA SNOMED Code(s): 707868293 Plan: Assessment and Recommentations: 1. Hepatocellular Carcinoma - Status Post Chemoembolization: 2012, 2015 and recent 2017 - Multiple medical opinions from multiple outside hospitals - Currently Monitoring 2. Recurrent abdominal pain related admission: - Inconsistent and unclear: Likely multifactoral - Recurrent Ascites, Recent MRSA Stools, Diarrhea - Pain Management and supportive care 3. Abdominal Ascites: Status Post 3.6 Liters off abdomen - Recent Paracentesis was negative for malignat cells Rec: - Patient has not been able to remain out of hospital long enough to follow-up in office for monitoring of hepatocellular cancer and pain management. I would continue her on her long acting pain medication while inpatient to decrease the amount of IV breakthrough needed. - Convert to PO - Will restart her MS COntin ER 15q8 hours and Order MS IR PRN - The duration increased for IV and attempt to use IV last resort, PO first. - Bowel regimen to avoid Narcotic induced constipation. - Long discussion on up and moving, staying out of hospital and adhering to follow-up oputpatient appointments - Remediation regarding appointments and hospitalizations given and will need to be re-given as I explained our goal needs to be stay out of hospital.
[2018-12-01 20:52] LABS: Glucose,Whole Blood 120 mg/dL (75-99)
[2018-12-01] MEDS: SODIUM CHLORIDE 0.9% 1,000 ML IV SCH (21:21)
[2018-12-01 21:36] VITALS: RESP 18
[2018-12-02 04:57] VITALS: TEMP 97.4
[2018-12-02 05:46] LABS: Glucose,Whole Blood 117 mg/dL (75-99)
[2018-12-02 07:27] LABS: Glucose,Whole Blood 87 mg/dL (75-99)
[2018-12-02 07:56] VITALS: BP 113/56; PULSE 71
[2018-12-02] MEDS: INSULIN REGULAR 100 UNIT/ML VIAL SQ SCH ×2 (07:58→12:13)
[2018-12-02] MEDS: PANTOPRAZOLE 40 MG TABLET PO SCH (07:58)
[2018-12-02] MEDS: METOPROLOL TARTRATE 12.5 MG TAB PO SCH (08:01)
[2018-12-02] MEDS: MAGNESIUM OXIDE 400 MG TAB PO SCH (08:01)
[2018-12-02] MEDS: PREGABALIN 25 MG CAP PO SCH (08:01)
[2018-12-02] MEDS: HEPARIN SODIUM,PORCINE 5,000 UNIT/ML 1 ML VIAL SQ SCH (08:01)
[2018-12-02] MEDS: FUROSEMIDE 40 MG TAB PO SCH (08:01)
[2018-12-02] MEDS: SPIRONOLACTONE 25 MG TAB PO SCH (08:01)
[2018-12-02] MEDS: NYSTATIN 100,000 UNIT/ML SUSP 500,000 UNIT/5 ML CUP PO SCH ×2 (08:02→12:12)
[2018-12-02] MEDS: CHOLESTYRAMINE (WITH SUGAR) 4 GM PACKET PO SCH (08:02)
[2018-12-02] MEDS: INSULIN NPH 300 UNIT/3 ML VIAL SQ SCH (08:02)
[2018-12-02] MEDS: SUCRALFATE 1 GM TAB PO SCH ×2 (08:02→12:12)
[2018-12-02] MEDS: ONDANSETRON ODT 8 MG TAB.RAPDIS PO SCH (08:03)
[2018-12-02] MEDS: CIPROFLOXACIN HCL 250 MG TAB PO SCH (08:03)
[2018-12-02] MEDS: DICYCLOMINE 10 MG CAP PO SCH (08:03)
[2018-12-02] MEDS: MORPHINE SULFATE IR 15 MG TABLET PO PRN (08:05)
[2018-12-02] MEDS: MORPHINE SULFATE ER 15 MG TABLET PO SCH (08:07)
[2018-12-02] MEDS: clonazePAM 0.5 MG TAB PO SCH (09:14)
[2018-12-02] MEDS: LOSARTAN 25 MG TAB PO SCH (09:14)
[2018-12-02 09:25] LABS: Anisocytosis Slight; Basophils # (A) 0.1 k/uL (0-0.2); Basophils % (A) 1 %; Eosinophils # (A) 0.5 k/uL (0-0.7); Eosinophils % (A) 8 %; HCT 35.2 % (34.0-46.0); HGB 10.5 gm/dL (11.4-16.0); Hypochromasia Marked; Lymphocytes # (A) 2.3 k/uL (1.0-4.8); Lymphocytes % (A) 41 %; MCH 28.8 pg (25.0-35.0); MCHC 29.7 g/dL (31.0-37.0); Macrocytosis Slight; Mean Platelet Volume 9.4; Monocytes # (A) 0.3 k/uL (0-1.0); Monocytes % (A) 5 %; Neutrophils # (A) 2.4 k/uL (1.3-7.7); Neutrophils % (A) 42 %; Platelet Count 102 k/uL (150-450); RBC 3.63 m/uL (3.80-5.40); RDW 17.8 % (11.5-15.5); WBC 5.6 k/uL (3.8-10.6)
[2018-12-02 09:41] LABS: Albumin 2.5 g/dL (3.5-5.0); Calcium 8.2 mg/dL (8.4-10.2); Potassium 4.4 mmol/L (3.5-5.1); Total Bilirubin 1.7 mg/dL (0.2-1.3); Total Protein 6.3 g/dL (6.3-8.2)
[2018-12-02 10:08] VITALS: BMI 32.8
[2018-12-02 11:25] LABS: Glucose,Whole Blood 112 mg/dL (75-99)
--- NOTE | 2018-12-02 12:00 | P.DS ---
Providers Date of admission: 11/26/18 19:24 Expected date of discharge: 12/02/18 Attending physician: Artemio Lea Consults: 11/27/18 10:05 Consult Physician Routine Consulting Provider: Cem Estrada Consult Reason/Comments: liver ca Do you want consulting provider notified?: Yes 11/29/18 14:00 Consult Physician Routine Consulting Provider: Yuri Keith Consult Reason/Comments: 2decho result Do you want consulting provider notified?: Yes Primary care physician: Gilma Martinez Hospital Course: Discharge diagnosis 1. Increased peripheral edema. Will order venous Doppler to rule out DVT. BNP 461. Patient currently maintained on by mouth Lasix 40 daily. Venous Doppler negative for lower extremity DVT. 2-D echo completed showing an EF of 45-50%. Also showing LV wall motion is hypokinetic. Per cardiology services Aldactone 25 mg daily and losartan 25 mg daily has been added. No symptoms of acute heart failure. Patient to follow-up with Dr. Lux in office in 2-3 weeks 2. Increased abdominal Ascites. Patient has had previous paracentesis. Cardiology services are following. Per oncology interventional radiology will be consulted for possible paracentesis 3. Hypokalemia. Replace per protocol will recheck. Patient previously had problems with hyperkalemia. Resolved 4. Hypomagnesemia. Replace per protocol will recheck 5. Liver cancer. Dr. estrada has been consulted for oncology services. Patient follows outpatient with Dr. Yadav 12/05/2018. Per cardiology services patient does not appear to have any disease outside the liver from recent imaging 6. Chronic abdominal pain. This has been an ongoing issue for patient. During previous admission patient was seen by surgical, GI, infectious disease and pain management services. No surgical intervention was recommended. Interventional radiology will be consulted per oncology services for possible paracentesis might be contributing to ongoing abdominal pain 7. History of diverticulitis with history of bowel perforation and ileostomy placement. 8. Pancytopenia due to known liver cancer. Secondary to chronic liver cirrhosis 9. Chronic normocytic anemia secondary to liver cirrhosis and malignancy. Oncology is following 10. Diabetes mellitus. Previous hemoglobin A1C7.1. Home meds resumed 11. Elevated liver enzymes. This is chronic due to patient's known liver malignancy. Continue to monitor closely 12. Elevated creatinine creatinine 1.32. Patient will be DC'd home but advised to follow-up closely with her PCP and repeat CMP has been ordered for 3 days. Patient recently started on Aldactone and Cozaar per cardiology Hospital course This is a 73-year-old female patient of Dr. Martinez. Patient presented to the emergency room with complaints of increased swelling and pain to her abdomen and lower extremities. Patient that over the past 2 days that increased edema has been noted more so to her left and right side. Patient has known past medical history of primary liver cancer in which she follows with oncology services. Additional medical history includes recent MRSA infection in her large intestine. Patient was adequately treated with oral Vanco. Additional medical history includes liver cirrhosis, diverticulitis, anemia and diabetes mellitus. Chest x-ray completed showing no acute cardiopulmonary process. EKG completed showing sinus rhythm with frequent premature ventricular complexes. Right bundle branch block. Moderate voltage criteria for LVH may be normal variant T-wave abnormality consider lateral ischemia. Patient was previously admitted for abdominal pain. At that time patient was evaluated by infectious disease, surgical, GI and pain services. Patient's potassium also on admit 3.1. During previous admission patient had problem with hyperkalemia. Will replace per protocol and continue to monitor. Magnesium also replace per protocol will recheck. Patient currently on Lasix 40 mg by mouth daily. Will order venous Doppler of oncology to rule out DVT. BNP 461. Oncology services have been consulted. Urinary analysis showing moderate amount of leukocyte Estrace. Urine culture has been ordered. Patient denies chest pain or shortness breath. Patient denies nausea vomiting or diarrhea. Patient denies any urinary burning or frequency 11/28/2018 patient's alert and oriented 3. Patient had 2-D echo completed. This time patient is still complaining of some abdominal discomfort around stoma site. Denies chest pain or shortness breath. Patient denies nausea vomiting or diarrhea. Patient denies any urinary burning or frequency On 11/29/2018 patient's alert and oriented 3. Patient had paracentesis with 3.6 L removed yesterday. Patient does report some improvement with abdominal discomfort. 2-D echo completed. Patient denies chest pain. Patient denies nausea vomiting or diarrhea. Patient denies any urinary burning or frequency. On 11/30/2018 patient remains alert and oriented 3. Patient states some improvement with edema and abdominal discomfort. Awaiting cardiology consult due to 2-D echo consult. This time patient denies chest pain or shortness of breath. Patient denies nausea vomiting or diarrhea. Patient denies any urinary burning or frequency. Patient remains on telemetry monitoring On 12/01/2018 patient remains alert and oriented 3. Patient was seen by cardiology services. Medications adjusted. Patient states she is unable to go home until tomorrow due to ride. At this time patient states improvement with abdominal pain. Patient denies chest pain or shortness breath. Patient denies nausea vomiting or diarrhea. Patient denies any urinary burning or frequency. On 12/02/2018 patient's alert and oriented 3. Patient to follow up with cardiology, oncology and primary care provider. Per cardiology patient was started on Aldactone and Cozaar. Patient will need close monitoring by her PCP and cardiology services in regards to blood pressure in her kidney enzymes. CMP has been ordered for 3 days. At this time patient denies chest pain or shortness of breath. Patient denies nausea vomiting or diarrhea. Patient denies any urinary burning or frequency I performed an examination of the patient and discussed their management with the Nurse Practitioner. I have reviewed the Nurse Practitioner's notes and agree with the documented findings and plan of care Patient Condition at Discharge: Stable Plan - Discharge Summary Discharge Rx Participant: No New Discharge Prescriptions: New Ciprofloxacin HCl [Cipro] 250 mg PO BID 3 Days #6 tab Losartan [Cozaar] 25 mg PO DAILY #30 tab Spironolactone [Aldactone] 25 mg PO DAILY #30 tab Continue Sucralfate [Carafate] 1 gm PO QID Omeprazole [PriLOSEC] 20 mg PO BID Furosemide [Lasix] 40 mg PO DAILY Dicyclomine [Bentyl] 10 mg PO TID Ondansetron [Zofran ODT] 8 mg PO Q8HR Magnesium 200 mg PO DAILY Metoprolol Tartrate 12.5 mg PO DAILY Insulin Regular, Human [NovoLIN R] 8 unit SQ AC-TID Insulin NPH Human Isophane [NovoLIN N] 18 unit SQ BID clonazePAM [KlonoPIN] 0.5 mg PO DAILY tab Nystatin 100,000 Unit/ml Susp [Mycostatin Oral Susp] 500,000 unit PO QID #12 cup Cholestyramine (with Sugar) [Questran Packet] 4 gm PO TID #21 packet Morphine Sulfate ER [Ms Contin] 15 mg PO Q8H #9 tablet Pregabalin [Lyrica] 25 mg PO TID #9 cap Discharge Medication List Dicyclomine [Bentyl] 10 mg PO TID 10/23/18 [History] Furosemide [Lasix] 40 mg PO DAILY 10/23/18 [History] Omeprazole [PriLOSEC] 20 mg PO BID 10/23/18 [History] Sucralfate [Carafate] 1 gm PO QID 10/23/18 [History] Insulin NPH Human Isophane [NovoLIN N] 18 unit SQ BID 10/24/18 [History] Insulin Regular, Human [NovoLIN R] 8 unit SQ AC-TID 10/24/18 [History] Magnesium 200 mg PO DAILY 10/24/18 [History] Metoprolol Tartrate 12.5 mg PO DAILY 10/24/18 [History] Ondansetron [Zofran ODT] 8 mg PO Q8HR 10/24/18 [History] Nystatin 100,000 Unit/ml Susp [Mycostatin Oral Susp] 500,000 unit PO QID #12 cup 11/03/18 [Rx] clonazePAM [KlonoPIN] 0.5 mg PO DAILY tab 11/03/18 [Rx] Cholestyramine (with Sugar) [Questran Packet] 4 gm PO TID #21 packet 11/04/18 [ Rx] Morphine Sulfate ER [Ms Contin] 15 mg PO Q8H #9 tablet 11/22/18 [Rx] Pregabalin [Lyrica] 25 mg PO TID #9 cap 11/22/18 [Rx] Ciprofloxacin HCl [Cipro] 250 mg PO BID 3 Days #6 tab 12/02/18 [Rx] Losartan [Cozaar] 25 mg PO DAILY #30 tab 12/02/18 [Rx] Spironolactone [Aldactone] 25 mg PO DAILY #30 tab 12/02/18 [Rx] Follow up Appointment(s)/Referral(s): Wilver Lux MD [STAFF PHYSICIAN] - 3 Weeks Gilma Martinez MD [Primary Care Provider] - 1-2 days Cem Estrada MD [STAFF PHYSICIAN] - 1 Week Ambulatory/Diagnostic Orders: Complete Blood Count w/diff [LAB.AMB] Time Frame: 3 Days, Location: None Selected Comprehensive Metabolic Panel [LAB.AMB] Time Frame: 3 Days, Location: None Selected Activity/Diet/Wound Care/Special Instructions: Activity as tolerated Diet regular Discharge Disposition: HOME SELF-CARE
== END 2018-12-02 13:40 | disposition home or self-care (01) | DRG 436 ==
LOC: EC 14:38 → 3NMEDONC 19:24
PROVIDERS: ADMIT Internal Medicine; ATTEND Internal Medicine
PROC: 0W9G3ZZ Drainage of Peritoneal Cavity, Percutaneous Approach (ICD-10-PCS; principal; 2018-11-28)
DX: C22.0 Liver cell carcinoma (principal); D61.818 Other pancytopenia; I50.22 Chronic systolic (congestive) heart failure; N39.0 Urinary tract infection, site not specified; R18.8 Other ascites; D63.0 Anemia in neoplastic disease; E11.9 Type 2 diabetes mellitus without complications; E83.42 Hypomagnesemia; E87.6 Hypokalemia; F32.9 Major depressive disorder, single episode, unspecified; F41.9 Anxiety disorder, unspecified; G89.29 Other chronic pain; I11.0 Hypertensive heart disease with heart failure; I35.8 Other nonrheumatic aortic valve disorders; I45.10 Unspecified right bundle-branch block; K74.60 Unspecified cirrhosis of liver; Z79.4 Long term (current) use of insulin; Z79.899 Other long term (current) drug therapy; Z82.49 Family history of ischemic heart disease and other diseases of the circulatory system; Z86.14 Personal history of Methicillin resistant Staphylococcus aureus infection; Z87.891 Personal history of nicotine dependence; Z90.710 Acquired absence of both cervix and uterus; Z88.1 Allergy status to other antibiotic agents; Z88.5 Allergy status to narcotic agent; Z88.0 Allergy status to penicillin; Z88.8 Allergy status to other drugs, medicaments and biological substances; Z90.49 Acquired absence of other specified parts of digestive tract
CPT/HCPCS: 36415; 49083; 71046; 76705; 80053; 81001; 82042; 82150; 82550; 82553; 83690; 83735; 83880; 84157; 84484; 85025; 85049; 85610; 87070; 87086; 87205; 89050; 93005; 93306; 93970; 96365; 96366; 96367; 96374; 99285

== ENCOUNTER 2018-12-04 17:38 | Inpatient (IN) | payer MEDICARE ==
--- NOTE | 2018-12-04 18:24 | ED ---
Abdominal Pain HPI - General Chief Complaint: Abdominal Pain Stated Complaint: Swelling Time Seen by Provider: 12/04/18 18:03 Source: patient, RN notes reviewed, old records reviewed Mode of arrival: wheelchair Limitations: no limitations - History of Present Illness Initial Comments: Pleasant 73 year old female with CC of abdominal pain and distension. Patient has history of primary liver cancer. She is followed with Dr. Medrano and Dr. Estrada. Patient was admitted earlier last week for similar complaints. That time she was diagnosed with ascites and had a partially 3.5 L of fluid drained from paracentesis. Patient states also that time they decreased her spironolactone. She states that since decreasing her spirnolactone she's feeling she is having worsening edema. She denies shortness of breath or chest pain. She claims it is general abdominal distention. She complains of chills but no specific fevers. Normal ileostomy output. - Related Data Home Medications Medication Instructions Recorded Confirmed Dicyclomine [Bentyl] 10 mg PO TID 10/23/18 11/26/18 Furosemide [Lasix] 40 mg PO DAILY 10/23/18 11/26/18 Omeprazole [PriLOSEC] 20 mg PO BID 10/23/18 11/26/18 Sucralfate [Carafate] 1 gm PO QID 10/23/18 11/26/18 Insulin NPH Human Isophane 18 unit SQ BID 10/24/18 11/26/18 [NovoLIN N] Insulin Regular, Human [NovoLIN R] 8 unit SQ AC-TID 10/24/18 11/26/18 Magnesium 200 mg PO DAILY 10/24/18 11/26/18 Metoprolol Tartrate 12.5 mg PO DAILY 10/24/18 11/26/18 Ondansetron [Zofran ODT] 8 mg PO Q8HR 10/24/18 11/26/18 Previous Rx's Medication Instructions Recorded Nystatin 100,000 Unit/ml Susp 500,000 unit PO QID #12 cup 11/03/18 [Mycostatin Oral Susp] clonazePAM [KlonoPIN] 0.5 mg PO DAILY tab 11/03/18 Cholestyramine (with Sugar) 4 gm PO TID #21 packet 11/04/18 [Questran Packet] Morphine Sulfate ER [Ms Contin] 15 mg PO Q8H #9 tablet 11/22/18 Pregabalin [Lyrica] 25 mg PO TID #9 cap 11/22/18 Ciprofloxacin HCl [Cipro] 250 mg PO BID 3 Days #6 tab 12/02/18 Losartan [Cozaar] 25 mg PO DAILY #30 tab 12/02/18 Spironolactone [Aldactone] 25 mg PO DAILY #30 tab 12/02/18 Allergies Allergy/AdvReac Type Severity Reaction Status Date / Time GREG Inhibitors Allergy Cough Verified 12/04/18 17:44 amlodipine Allergy Rash/Hives Verified 12/04/18 17:44 oxycodone Allergy Rash/Hives Verified 12/04/18 17:44 Penicillins Allergy Rash/Hives Verified 12/04/18 17:44 hydromorphone [From Dilaudid] AdvReac Unknown Verified 12/04/18 17:44 sodium dodecyclbenzene Allergy Rash/Hives Uncoded 12/04/18 17:44 sulfonate Review of Systems ROS Statement: Those systems with pertinent positive or pertinent negative responses have been documented in the HPI. ROS Other: All systems not noted in ROS Statement are negative. Past Medical History Past Medical History: Cancer, Diabetes Mellitus, Hypertension, Liver Disease Additional Past Medical History / Comment(s): liver ca- had chemo 10-03-18,past ascities-paracentesis, ( ulcer(sx),diveticulitis anx/depression History of Any Multi-Drug Resistant Organisms: MRSA Date of last positivie culture/infection: 10/23/18 MDRO Source:: MRSA STOOL Past Surgical History: Appendectomy, Bowel Resection, Section, Cholecystectomy, Hysterectomy, Tonsillectomy Additional Past Surgical History / Comment(s): rt rotator cuff repair,carpal tunnel release .liver bx,ilieostomy ,11-02-18 had paracentesis. Multiple chemo embolizations of liver tumors Past Anesthesia/Blood Transfusion Reactions: No Reported Reaction Past Psychological History: Anxiety, Depression Smoking Status: Former smoker Past Alcohol Use History: None Reported Past Drug Use History: None Reported - Past Family History Mother History Unknown: Yes Family Medical History: Congestive Heart Failure (CHF) General Exam - General Exam Comments Initial Comments: Is a 73-year-old female. No significant distress. Limitations: no limitations General appearance: alert, in no apparent distress Head exam: Present: atraumatic, normocephalic, normal inspection Eye exam: Present: normal appearance, PERRL, EOMI. Absent: scleral icterus, conjunctival injection, periorbital swelling ENT exam: Present: normal exam, mucous membranes moist Neck exam: Present: normal inspection. Absent: tenderness, meningismus, lymphadenopathy Respiratory exam: Present: normal lung sounds bilaterally. Absent: respiratory distress, wheezes, rales, rhonchi, stridor Cardiovascular Exam: Present: regular rate, normal rhythm, normal heart sounds. Absent: systolic murmur, diastolic murmur, rubs, gallop, clicks GI/Abdominal exam: Present: soft, distended (Distended abdomen. Evidence of a right-sided ileostomy. Bruising over the left lower quadrant from heparin shots.), normal bowel sounds. Absent: tenderness, guarding, rebound, rigid Extremities exam: Present: normal inspection, full ROM, normal capillary refill , other (Bilateral 4+ pitting edema.). Absent: tenderness, pedal edema, joint swelling, calf tenderness Back exam: Present: normal inspection Neurological exam: Present: alert, oriented X3, CN II-XII intact Psychiatric exam: Present: normal affect, normal mood Skin exam: Present: warm, dry, intact, normal color. Absent: rash Course Vital Signs 12/04/18 12/04/18 17:42 19:32 Temperature 99.2 F 98.0 F Pulse Rate 68 69 Respiratory 16 18 Rate Blood Pressure 118/68 100/55 O2 Sat by Pulse 100 100 Oximetry Medical Decision Making - Medical Decision Making This Patient is a 73-year-old female with history primary liver cancer presents emergency department today with worsening abdominal pain and distention. Patient does have evidence of significant ascites. She's had normal output from her ostomy normal urination. Patient has been decreased from her spironolactone from 125 patient's chest x-ray was negative for any acute process. No evidence of pleural effusion. Lungs are clear to auscultation. She does have some diffuse abdominal tenderness and distention. 4+ pitting edema bilaterally. Patient case discussed with Dr. Lui who discussed the case with Dr. Lui. Patient will be admitted at this time for consult interventional radiology for paracentesis as well as her oncologist. Patient agrees to admission. - Lab Data Result diagrams: 12/04/18 18:25 12/04/18 18:25 Lab Results 12/04/18 12/04/18 12/04/18 Range/Units 18:25 18:25 18:25 WBC 3.9 (3.8-10.6) k/uL RBC 3.29 L (3.80-5.40) m/uL Hgb 9.6 L (11.4-16.0) gm/dL Hct 31.1 L (34.0-46.0) % MCV 94.6 (80.0-100.0) fL MCH 29.4 (25.0-35.0) pg MCHC 31.0 (31.0-37.0) g/dL RDW 17.5 H (11.5-15.5) % Plt Count 90 L (150-450) k/uL Neutrophils % 60 % Lymphocytes % 25 % Monocytes % 7 % Eosinophils % 4 % Basophils % 0 % Neutrophils # 2.3 (1.3-7.7) k/uL Lymphocytes # 1.0 (1.0-4.8) k/uL Monocytes # 0.3 (0-1.0) k/uL Eosinophils # 0.2 (0-0.7) k/uL Basophils # 0.0 (0-0.2) k/uL Hypochromasia Marked Anisocytosis Slight PT (9.0-12.0) sec INR (<1.2) APTT (22.0-30.0) sec Sodium 136 L (137-145) mmol/L Potassium 4.5 (3.5-5.1) mmol/L Chloride 113 H (98-107) mmol/L Carbon Dioxide 17 L (22-30) mmol/L Anion Gap 6 mmol/L BUN 20 H (7-17) mg/dL Creatinine 1.00 (0.52-1.04) mg/dL Est GFR (CKD-EPI)AfAm 66 (>60 ml/min/1.73 sqM) Est GFR (CKD-EPI)NonAf 57 (>60 ml/min/1.73 sqM) Glucose 157 H (74-99) mg/dL Plasma Lactic Acid Carlos 1.6 (0.7-2.0) mmol/L Calcium 7.8 L (8.4-10.2) mg/dL Total Bilirubin 1.3 (0.2-1.3) mg/dL AST 47 H (14-36) U/L ALT 28 (9-52) U/L Alkaline Phosphatase 195 H (38-126) U/L Total Protein 6.1 L (6.3-8.2) g/dL Albumin 2.4 L (3.5-5.0) g/dL Urine Color Urine Appearance (Clear) Urine pH (5.0-8.0) Ur Specific [place] (1.001-1.035) Urine Protein (Negative) Urine Glucose (UA) (Negative) Urine Ketones (Negative) Urine Blood (Negative) Urine Nitrite (Negative) Urine Bilirubin (Negative) Urine Urobilinogen (<2.0) mg/dL Ur Leukocyte Esterase (Negative) 12/04/18 12/04/18 Range/Units 18:25 18:25 WBC (3.8-10.6) k/uL RBC (3.80-5.40) m/uL Hgb (11.4-16.0) gm/dL Hct (34.0-46.0) % MCV (80.0-100.0) fL MCH (25.0-35.0) pg MCHC (31.0-37.0) g/dL RDW (11.5-15.5) % Plt Count (150-450) k/uL Neutrophils % % Lymphocytes % % Monocytes % % Eosinophils % % Basophils % % Neutrophils # (1.3-7.7) k/uL Lymphocytes # (1.0-4.8) k/uL Monocytes # (0-1.0) k/uL Eosinophils # (0-0.7) k/uL Basophils # (0-0.2) k/uL Hypochromasia Anisocytosis PT 13.5 H (9.0-12.0) sec INR 1.3 H (<1.2) APTT 22.9 (22.0-30.0) sec Sodium (137-145) mmol/L Potassium (3.5-5.1) mmol/L Chloride (98-107) mmol/L Carbon Dioxide (22-30) mmol/L Anion Gap mmol/L BUN (7-17) mg/dL Creatinine (0.52-1.04) mg/dL Est GFR (CKD-EPI)AfAm (>60 ml/min/1.73 sqM) Est GFR (CKD-EPI)NonAf (>60 ml/min/1.73 sqM) Glucose (74-99) mg/dL Plasma Lactic Acid Carlos (0.7-2.0) mmol/L Calcium (8.4-10.2) mg/dL Total Bilirubin (0.2-1.3) mg/dL AST (14-36) U/L ALT (9-52) U/L Alkaline Phosphatase (38-126) U/L Total Protein (6.3-8.2) g/dL Albumin (3.5-5.0) g/dL Urine Color Light Yellow Urine Appearance Clear (Clear) Urine pH 5.0 (5.0-8.0) Ur Specific [place] 1.008 (1.001-1.035) Urine Protein Negative (Negative) Urine Glucose (UA) Negative (Negative) Urine Ketones Negative (Negative) Urine Blood Negative (Negative) Urine Nitrite Negative (Negative) Urine Bilirubin Negative (Negative) Urine Urobilinogen <2.0 (<2.0) mg/dL Ur Leukocyte Esterase Negative (Negative) 12/04/18 18:46 EKG performed at 1830 shows normal sinus rhythm) range back. Minimal voltage criteria for LVH. Abnormal EKG. Ventricular 67 bpm. Was 162 ms. QRS ration 1:30 milliseconds. QT QTc is 4/464 ms. - Radiology Data Radiology results: report reviewed Normal Chest x-ray. Disposition Clinical Impression: Liver cancer, Peripheral edema, Ascites, Intractable pain Disposition: ADMITTED IP TO THIS HOSP Condition: Stable Is patient prescribed a controlled substance at d/c from ED?: No Referrals: Gilma Martinez MD [Primary Care Provider] - 1-2 days Time of Disposition: 19:44
[2018-12-04 18:40] LABS: Anisocytosis Slight; Basophils % (A) 0 %; Eosinophils # (A) 0.2 k/uL (0-0.7); Eosinophils % (A) 4 %; HCT 31.1 % (34.0-46.0); HGB 9.6 gm/dL (11.4-16.0); Hypochromasia Marked; Lymphocytes % (A) 25 %; MCH 29.4 pg (25.0-35.0); MCV 94.6 fL (80.0-100.0); Mean Platelet Volume 10.5; Monocytes # (A) 0.3 k/uL (0-1.0); Monocytes % (A) 7 %; Neutrophils # (A) 2.3 k/uL (1.3-7.7); Neutrophils % (A) 60 %; RBC 3.29 m/uL (3.80-5.40); RDW 17.5 % (11.5-15.5); WBC 3.9 k/uL (3.8-10.6)
[2018-12-04 18:41] LABS: Platelet Count 90 k/uL (150-450)
[2018-12-04 18:47] LABS: Appearance,Urine Clear (Clear); Bilirubin,Urine Negative (Negative); Blood,Urine Negative (Negative); Color,Urine Light Yellow; Glucose,Urine (UA) Negative (Negative); Ketones,Urine Negative (Negative); Leukocyte Esterase,Urine Negative (Negative); Nitrite,Urine Negative (Negative); Protein,Urine Negative (Negative); Specific Gravity,Urine 1.008 (1.001-1.035); Urobilinogen,Urine <2.0 mg/dL (<2.0)
[2018-12-04 18:49] LABS: INR 1.3 (<1.2); Partial Thromboplastin Time 22.9 sec (22.0-30.0); Prothrombin Time 13.5 sec (9.0-12.0)
[2018-12-04 18:51] LABS: Albumin 2.4 g/dL (3.5-5.0); Calcium 7.8 mg/dL (8.4-10.2); Potassium 4.5 mmol/L (3.5-5.1); Total Bilirubin 1.3 mg/dL (0.2-1.3); Total Protein 6.1 g/dL (6.3-8.2)
--- NOTE | 2018-12-04 19:04 | XR ---
EXAMINATION TYPE: XR chest 2V DATE OF EXAM: 12/04/2018 COMPARISON: 11/26/2018 HISTORY: Fever TECHNIQUE: Frontal and lateral views of the chest are obtained. FINDINGS: Heart and mediastinum are normal. Lungs are clear. Diaphragm is normal. Bony thorax appear s normal. IMPRESSION: Normal chest. No change.
[2018-12-04] MEDS: SODIUM CHLORIDE 0.9% 1,000 ML IV SCH (19:29)
[2018-12-04] MEDS ORDERED: NALOXONE 0.4 MG/ML 1 ML VIAL IV PRN (19:44)
[2018-12-04] MEDS ORDERED: Acetaminophen-Codeine 300-30mg TAB PO PRN (19:44)
[2018-12-04] MEDS ORDERED: IBUPROFEN 400 MG TAB PO PRN (19:44)
[2018-12-04] MEDS ORDERED: ONDANSETRON 4 MG/2 ML VIAL IVP PRN (19:44)
[2018-12-04] MEDS: MORPHINE SULFATE 4 MG/ML SYRINGE IV PRN (22:23)
[2018-12-05 03:45] VITALS: BMI 34.8
[2018-12-05] MEDS: MORPHINE SULFATE 4 MG/ML SYRINGE IV PRN ×3 (04:42→17:30)
[2018-12-05] MEDS ORDERED: PANTOPRAZOLE 40 MG/10 ML VIAL IV SCH (09:00)
[2018-12-05] MEDS: SODIUM CHLORIDE 0.9% 1,000 ML IV SCH (09:43)
--- NOTE | 2018-12-05 11:11 | P.HPIM ---
History of Present Illness H&P Date: 12/05/18 Chief Complaint: Abdominal pain and distention 73-year-old female, patient of Dr. Barnard. She has a known past medical history of liver cancer and follows with oncology services outpatient. She has a medical history of liver cirrhosis, diverticulitis, anemia and diabetes mellitus. Patient presents to the emergency room with increasing abdominal pain and distention. Patient had recently been hospitalized and discharged on December [address] [facility] and at that time had undergone a paracentesis with 3.5 L removed. Patient reports that her spironolactone had been decreased from 100 mg daily to 25 mg daily. oncology has been placed on consult. Paracentesis has been ordered. Fluids will be hep-locked. Patient's blood pressures on the lower side her losartan and metoprolol are currently on hold. Patient denies any chest pain, fever or chills or sweats, nausea or vomiting. Does report that her stools are looser through her ileostomy. Stool for C. diff ordered. Review of Systems Please refer to HPI otherwise unremarkable Past Medical History Past Medical History: Cancer, Diabetes Mellitus, Hypertension, Liver Disease Additional Past Medical History / Comment(s): liver ca- had chemo 10-03-18,past ascities-paracentesis, ulcer(sx),diveticulitis, anx/depression History of Any Multi-Drug Resistant Organisms: MRSA Date of last positivie culture/infection: 10/23/18 MDRO Source:: MRSA STOOL Past Surgical History: Appendectomy, Bowel Resection, Section, Cholecystectomy, Hysterectomy, Tonsillectomy Additional Past Surgical History / Comment(s): rt rotator cuff repair,carpal tunnel release .liver bx,ilieostomy ,paracentesis, chemo, embolizations of liver tumors Past Anesthesia/Blood Transfusion Reactions: No Reported Reaction Past Psychological History: Anxiety, Depression Additional Psychological History / Comment(s): Reformed smoker. . Retired. No experience. No animal exposures Smoking Status: Former smoker Past Alcohol Use History: None Reported Additional Past Alcohol Use History / Comment(s): started smoking 1962 and quit 1965 Past Drug Use History: None Reported - Past Family History Mother History Unknown: Yes Family Medical History: Congestive Heart Failure (CHF) Medications and Allergies Home Medications Medication Instructions Recorded Confirmed Type Dicyclomine [Bentyl] 10 mg PO TID 10/23/18 12/04/18 History Furosemide [Lasix] 40 mg PO DAILY 10/23/18 12/04/18 History Omeprazole [PriLOSEC] 20 mg PO BID 10/23/18 12/04/18 History Sucralfate [Carafate] 1 gm PO QID 10/23/18 12/04/18 History Insulin NPH Human Isophane 18 unit SQ BID 10/24/18 12/04/18 History [NovoLIN N] Insulin Regular, Human [NovoLIN R] 8 unit SQ AC-TID 10/24/18 12/04/18 History Magnesium 200 mg PO DAILY 10/24/18 12/04/18 History Metoprolol Tartrate 12.5 mg PO DAILY 10/24/18 12/04/18 History Ondansetron [Zofran ODT] 8 mg PO Q8HR 10/24/18 12/04/18 History Nystatin 100,000 Unit/ml Susp 500,000 unit PO QID #12 cup 11/03/18 12/04/18 Rx [Mycostatin Oral Susp] clonazePAM [KlonoPIN] 0.5 mg PO DAILY tab 11/03/18 12/04/18 Rx Cholestyramine (with Sugar) 4 gm PO TID #21 packet 11/04/18 12/04/18 Rx [Questran Packet] Morphine Sulfate ER [Ms Contin] 15 mg PO Q8H #9 tablet 11/22/18 12/04/18 Rx Pregabalin [Lyrica] 25 mg PO TID #9 cap 11/22/18 12/04/18 Rx Losartan [Cozaar] 25 mg PO DAILY #30 tab 12/02/18 12/04/18 Rx Spironolactone [Aldactone] 25 mg PO DAILY #30 tab 12/02/18 12/04/18 Rx Allergies Allergy/AdvReac Type Severity Reaction Status Date / Time GREG Inhibitors Allergy Cough Verified 12/04/18 19:46 amlodipine Allergy Rash/Hives Verified 12/04/18 19:46 oxycodone Allergy Rash/Hives Verified 12/04/18 19:46 Penicillins Allergy Rash/Hives Verified 12/04/18 19:46 hydromorphone [From Dilaudid] AdvReac Unknown Verified 12/04/18 19:46 sodium dodecyclbenzene Allergy Rash/Hives Uncoded 12/04/18 17:44 sulfonate Physical Exam Vitals: Vital Signs Temp Pulse Pulse Resp BP BP Pulse Ox 12/05/18 08:00 75 16 12/05/18 05:38 98.6 F 75 16 107/53 99 12/04/18 23:10 16 12/04/18 23:00 98.2 F 67 16 117/71 100 12/04/18 22:10 98.8 F 71 17 115/61 99 12/04/18 21:05 101/77 12/04/18 19:32 98.0 F 69 18 100/55 100 12/04/18 17:42 99.2 F 68 16 118/68 100 Intake and Output 12/04/18 12/05/18 12/05/18 22:59 06:59 14:59 Intake Total 950 640 Balance 950 640 Intake: Intake, IV Titration 400 Amount Sodium Chloride 0.9% 1, 400 000 ml @ 100 mls/hr IV . Q10H JENNY Rx#:[id number] Oral 950 240 Other: # Voids 1 1 Weight 107.048 kg 107.048 kg Head normocephalic Neck supple Lungs clear to auscultation bilaterally no wheezing or crackles Heart regular rate and rhythm S1-S2, no rub or gallop Abdomen is soft and distended positive bowel sounds Right-sided ileostomy Extremities +2 bilateral lower extremity edema Neuro alert and orientated to 3 Results CBC & Chem 7: 12/04/18 18:25 12/04/18 18:25 Labs: Abnormal Lab Results - Last 24 Hours (Table) 12/04/18 12/04/18 12/04/18 Range/Units 18:25 18:25 18:25 RBC 3.29 L (3.80-5.40) m/uL Hgb 9.6 L (11.4-16.0) gm/dL Hct 31.1 L (34.0-46.0) % RDW 17.5 H (11.5-15.5) % Plt Count 90 L (150-450) k/uL PT 13.5 H (9.0-12.0) sec INR 1.3 H (<1.2) Sodium 136 L (137-145) mmol/L Chloride 113 H (98-107) mmol/L Carbon Dioxide 17 L (22-30) mmol/L BUN 20 H (7-17) mg/dL Glucose 157 H (74-99) mg/dL Calcium 7.8 L (8.4-10.2) mg/dL AST 47 H (14-36) U/L Alkaline Phosphatase 195 H (38-126) U/L Total Protein 6.1 L (6.3-8.2) g/dL Albumin 2.4 L (3.5-5.0) g/dL Microbiology - Last 24 Hours (Table) 12/04/18 18:25 Urine Culture - Preliminary Urine,Voided Thrombosis Risk Factor Assmnt - Choose All That Apply Any of the Below Risk Factors Present?: Yes Each Factor Represents 1 point: Obesity (BMI >25), Swollen legs (current) Each Risk Factor Represents 2 Points: Age 61-74 years Thrombosis Risk Factor Assessment Total Risk Factor Score: 4 Thrombosis Risk Factor Assessment Level: Moderate Risk Assessment and Plan Assessment: 1. Abdominal pain with abdominal distention. Patient required paracentesis on her last hospitalization cytology was negative for malignant cells. Patient will be evaluated for another possible paracentesis. Oncology on consult. 2. History of hepatocellular carcinoma status post chemoembolization 2012, 2015 and 2018 3. Recurrent abdominal ascites requiring previous paracentesis 4. History of diverticulitis with bowel perforation and ileostomy placement 5. Pancytopenia due to known liver cancer. Secondary to chronic liver cirrhosis 6. Chronic anemia secondary to liver cirrhosis and malignancy. Check iron studies. Hemoglobin 9.6 7. Insulin-dependent diabetes mellitus with A1c of 7.1. Continue home meds. Add sliding scale coverage. 8. Elevated liver enzymes chronic due to known liver malignancy 9. Coagulopathy secondary to patient's liver disease. Continue to monitor PT/ INR. 10. Loose stools check stool for C. diff Resume patient's Aldactone and Lasix We will hold the metoprolol and losartan for now due to lower blood pressure GI prophylaxis Protonix and DVT prophylaxis SCDs Time with Patient: Greater than 30 (Greater than 50% of the total time spent in counseling and coordination of care.I performed an examination of the patient and discussed their management with the physician Mcat Tutor. I have reviewed the Physician Mcat Tutor's notes and agree with the documented findings and plan of care)
--- NOTE | 2018-12-05 11:37 | P.CONS ---
History of Present Illness - Reason for Consult Consult date: 12/05/18 Hx: Hepatocellular Carcinoma Requesting physician: Patrica Roberto - Chief Complaint Abdominal Pain and distention - History of Present Illness Ms. Keenan is a pleasant 73 year old female who was initially introduced to our service at recent hospitalization last month. She has a known history of Hepatocellular carcinoma, originally diagnosed through [facility]. At her last hospitalization we were not able to obtain all of her medical records until now as she has been seen and treated at many different outside hospitals since her initial diagnosis. Medical Surgical History includes: Diverticulitis in 2010 with perforation colectomy, ileostomy, left lateral liver hepatocellular carcinoma, non- alcoholic liver cirrhosis (per patient diagnosis in 2002), Thrombocytopenia, Anemia, Hypertension, Diabetes Mellitus, OA, Mood Disorder, depression, Chronic Pain. Cholecystectomy, Appendectomy, Exp Lap with lysis of adhesions, Total abdominal hysterectomy, C-sections. 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 [facility] was consulted as well on intial pathology. It was felt to be an unusual appearing neoplasm at [facility] as hepatocellular parenchyma exhibited heavily lipidized cells by collagen and lymphoid response. Note she has history of an existing ileostomy due to dicerticulitis perforation in 2010, where colectomy and ileostomy was completed on 09/11/2011 04/18/2013 - Admitted to [facility] - under Dr. Desai with intent to resect liver mass, ex lap performed but excision of mass was not able to be performed Sometime between 2012--2014 she was treated with Chemoembolization (per patient at [facility]) She was also seen and treated by Dr. Varela during this time 2015: Seen at [facility] and again in 2016 she consulted with yet another hematology, oncologist Dr. Greg Bear in November 2016. 02/2016 - Ablation liver mass ([facility]) 06/2016 - Was evaluated at [facility] by Gastroenterology when a repeat liver biopsy was performed. Resulted with well-differentiated Hepatocellular Carcinoma 10/2016 Underwent Chemoembolization to left hepatic lobe with Interventional Radiology 08/2018 - She was evaluated at [facility] Right Hepatic Lobe Biopsy was performed - Well differentiated Hepatocellular Carcinoma and new 4.3cm right hepatic mass and underwent chemoembolization at this facility in August. At this time she also consulted with Medical Oncologist Dr. Ar Julio. 10/22/18 - She presented to [facility] with complaints of abdominal pain and discomfort. She was treated for UTI, as well as increased ostomy output which was positive for MRSA and treated with PO Vancomycin, She also underwent paracentesis for increasing abdominal ascites during this stay and pathology of ascitic fluid was negative for malignant cells, supportive care was given, she was discharged when stabiled on 11/03/18. 11/04/18 - She presented back to emergency with complaints of increased ostomy output and pain, less than 24 hours after discharge. She was provided pain management and a script for questran and discharge in stable condition from Emergency. Multiple first, new patient appointments have been made since 2017 for her although she has cancelled/not showed. She now has had 5 hospitalizations over the past 6 weeks at [facility]. At her last visit we had a very long discussion on having a goal of staying out of hospital. SHe stated "Oh but I will be back, I never know when this hernia acts up". Re-mediation and re- education reinforced at all visits. Plan to follow-up as out patient, Schedule PRN Paracentesis as out patient to avoid re-hospitalizations, she stated her pain was controlled on regimen at home, although still a complaint on admission. 11/11/18 - She presented to [facility]. With complaints of pain and discomfort. She was admitted with pain and increased output in ostomy. CT Abdomen and pelvis was performed on admission and shows increasing abdominal ascites and known liver masses. Last AFP was less than 2.5. She also complains of increased nausea and inability to keep food or fluids down without vomiting. Her medical history records were obtained since last admission and are documented above. Despite her long history of locally advanced Hepatocellular carcinoma she denies ever being prescribed or taking PO cancer therapy (i.e. Nexavaar or Sutent). She also states she previously was in for transplant potential although was told a few years ago she is no longer a candidate. Review of Systems A 14 point review of systems assessed and completed and negative except HPI Past Medical History Past Medical History: Cancer, Diabetes Mellitus, Hypertension, Liver Disease Additional Past Medical History / Comment(s): liver ca- had chemo 10-03-18,past ascities-paracentesis, ulcer(sx),diveticulitis, anx/depression History of Any Multi-Drug Resistant Organisms: MRSA Year Discovered:: 10/23/18 MDRO Source:: MRSA STOOL Past Surgical History: Appendectomy, Bowel Resection, Section, Cholecystectomy, Hysterectomy, Tonsillectomy Additional Past Surgical History / Comment(s): rt rotator cuff repair,carpal tunnel release .liver bx,ilieostomy ,paracentesis, chemo, embolizations of liver tumors Past Anesthesia/Blood Transfusion Reactions: No Reported Reaction Past Psychological History: Anxiety, Depression Additional Psychological History / Comment(s): Reformed smoker. . Retired. No experience. No animal exposures Smoking Status: Former smoker Past Alcohol Use History: None Reported Additional Past Alcohol Use History / Comment(s): started smoking 1962 and quit 1965 Past Drug Use History: None Reported - Past Family History Mother History Unknown: Yes Family Medical History: Congestive Heart Failure (CHF) Medications and Allergies Home Medications Medication Instructions Recorded Confirmed Type Dicyclomine [Bentyl] 10 mg PO TID 10/23/18 12/04/18 History Furosemide [Lasix] 40 mg PO DAILY 10/23/18 12/04/18 History Omeprazole [PriLOSEC] 20 mg PO BID 10/23/18 12/04/18 History Sucralfate [Carafate] 1 gm PO QID 10/23/18 12/04/18 History Insulin NPH Human Isophane 18 unit SQ BID 10/24/18 12/04/18 History [NovoLIN N] Insulin Regular, Human [NovoLIN R] 8 unit SQ AC-TID 10/24/18 12/04/18 History Magnesium 200 mg PO DAILY 10/24/18 12/04/18 History Metoprolol Tartrate 12.5 mg PO DAILY 10/24/18 12/04/18 History Ondansetron [Zofran ODT] 8 mg PO Q8HR 10/24/18 12/04/18 History Nystatin 100,000 Unit/ml Susp 500,000 unit PO QID #12 cup 11/03/18 12/04/18 Rx [Mycostatin Oral Susp] clonazePAM [KlonoPIN] 0.5 mg PO DAILY tab 11/03/18 12/04/18 Rx Cholestyramine (with Sugar) 4 gm PO TID #21 packet 11/04/18 12/04/18 Rx [Questran Packet] Morphine Sulfate ER [Ms Contin] 15 mg PO Q8H #9 tablet 11/22/18 12/04/18 Rx Pregabalin [Lyrica] 25 mg PO TID #9 cap 11/22/18 12/04/18 Rx Losartan [Cozaar] 25 mg PO DAILY #30 tab 12/02/18 12/04/18 Rx Spironolactone [Aldactone] 25 mg PO DAILY #30 tab 12/02/18 12/04/18 Rx Allergies Allergy/AdvReac Type Severity Reaction Status Date / Time GREG Inhibitors Allergy Cough Verified 12/04/18 19:46 amlodipine Allergy Rash/Hives Verified 12/04/18 19:46 oxycodone Allergy Rash/Hives Verified 12/04/18 19:46 Penicillins Allergy Rash/Hives Verified 12/04/18 19:46 hydromorphone [From Dilaudid] AdvReac Unknown Verified 12/04/18 19:46 sodium dodecyclbenzene Allergy Rash/Hives Uncoded 12/04/18 17:44 sulfonate Physical Exam Vitals: Vital Signs Temp Pulse Pulse Resp BP BP Pulse Ox 12/05/18 08:00 75 16 12/05/18 05:38 98.6 F 75 16 107/53 99 12/04/18 23:10 16 12/04/18 23:00 98.2 F 67 16 117/71 100 12/04/18 22:10 98.8 F 71 17 115/61 99 12/04/18 21:05 101/77 12/04/18 19:32 98.0 F 69 18 100/55 100 12/04/18 17:42 99.2 F 68 16 118/68 100 Intake and Output 12/04/18 12/05/18 12/05/18 22:59 06:59 14:59 Intake Total 950 640 Balance 950 640 Intake: Intake, IV Titration 400 Amount Sodium Chloride 0.9% 1, 400 000 ml @ 100 mls/hr IV . Q10H JENNY Rx#:[id number] Oral 950 240 Other: # Voids 1 1 Weight 107.048 kg 107.048 kg - Constitutional General appearance: no acute distress - EENT Eyes: EOMI, PERRLA ENT: hearing grossly normal, normal oropharynx - Neck Neck: no lymphadenopathy Thyroid: bilateral: normal size - Respiratory Respiratory: bilateral: CTA - Cardiovascular Rhythm: regular Heart sounds: normal: S1, S2 - Gastrointestinal Right lower quadrant ostomy General gastrointestinal: distended, normal bowel sounds, soft - Integumentary Integumentary: normal - Neurologic Neurologic: CNII-XII intact - Musculoskeletal Musculoskeletal: generalized weakness, strength equal bilaterally - Psychiatric Psychiatric: A&O x's 3, appropriate affect Results CBC & Chem 7: 12/05/18 11:25 12/05/18 11:25 Labs: Abnormal Lab Results - Last 24 Hours (Table) 12/04/18 12/04/18 12/04/18 Range/Units 18:25 18:25 18:25 RBC 3.29 L (3.80-5.40) m/uL Hgb 9.6 L (11.4-16.0) gm/dL Hct 31.1 L (34.0-46.0) % RDW 17.5 H (11.5-15.5) % Plt Count 90 L (150-450) k/uL PT 13.5 H (9.0-12.0) sec INR 1.3 H (<1.2) Sodium 136 L (137-145) mmol/L Chloride 113 H (98-107) mmol/L Carbon Dioxide 17 L (22-30) mmol/L BUN 20 H (7-17) mg/dL Glucose 157 H (74-99) mg/dL Calcium 7.8 L (8.4-10.2) mg/dL AST 47 H (14-36) U/L Alkaline Phosphatase 195 H (38-126) U/L Total Protein 6.1 L (6.3-8.2) g/dL Albumin 2.4 L (3.5-5.0) g/dL Microbiology - Last 24 Hours (Table) 12/04/18 18:25 Urine Culture - Preliminary Urine,Voided Assessment and Plan Plan: Assessment and Plan (1) Liver cancer Current Visit: Yes Status: Acute Code(s): C22.9 - MALIG NEOPLASM OF LIVER, NOT SPECIFIED PRIMARY OR SEC SNOMED Code(s): 17790180 (2) Peripheral edema Current Visit: Yes Status: Acute Code(s): R60.9 - EDEMA, UNSPECIFIED SNOMED Code(s): 042751429 (3) Abdominal pain Current Visit: No Status: Acute Code(s): R10.9 - UNSPECIFIED ABDOMINAL PAIN SNOMED Code(s): 59762655 (4) Ascites Current Visit: No Status: Acute Code(s): R18.8 - OTHER ASCITES SNOMED Code (s): 722222445 (5) High risk for readmission Current Visit: No Status: Acute Code(s): Z91.89 - OTH PERSONAL RISK FACTORS , NOT ELSEWHERE CLASSIFIED SNOMED Code(s): 313197146 (6) Intractable abdominal pain Current Visit: No Status: Acute Code(s): R10.9 - UNSPECIFIED ABDOMINAL PAIN SNOMED Code(s): 77005872 (7) Hepatocellular carcinoma Current Visit: No Status: Chronic Priority: Medium Code(s): C22.0 - LIVER CELL CARCINOMA SNOMED Code(s): 341197474 Plan: Assessment and Recommentations: 1. Hepatocellular Carcinoma - Status Post Chemoembolization: 2012, 2015 and recent 2018 - Multiple medical opinions from multiple outside hospitals - Currently Monitoring 2. Recurrent abdominal pain related admission: Recurrent admission, despite education and outpatient plan, remediation again provided. - I recommend keeping her on PO Pain medication without IV Bous for breakthrough as she will need to control at home - Recommend PRN standing order Weekly Paracentesis, this is not related to cancer but underlying liver disease, cirrhosis. - Inconsistent and unclear: Likely multifactoral - Recurrent Ascites - Requiring Paracentesis, Recent MRSA Stools, Diarrhea 3. Abdominal Ascites: Status Post 3.6 Liters off abdomen last admission - Recommend PRN Standing order for outpatient paracentesis - Recent Paracentesis was negative for malignant cells Rec: - Resonable to consider ? Psychiatry consultation or director social service to assess actual home situation with recurrent hospitalizations and prolonged stays, patient has very low threshold for ER and admission. - Hepatocellular currently on Observation - Abdominal pain, unknown etiology, likely more related to recurrent ascites and again rec. Standing order for outpatient, this does not appear related to Carcinoma but more Hepato disease, cirrhosis. Cytology has been negative - Utilize PO pain management as opposed to IV Morphine and monitor her pain so we can control at home - Encourage her to get up and out of bed, PT/OT. THank you for allowing us to participate in the care of this patient we will follow with you
[2018-12-05 12:09] LABS: INR 1.4 (<1.2); Prothrombin Time 14.2 sec (9.0-12.0)
[2018-12-05 12:10] LABS: Albumin 2.2 g/dL (3.5-5.0); Calcium 7.9 mg/dL (8.4-10.2); Potassium 4.6 mmol/L (3.5-5.1); Total Bilirubin 1.1 mg/dL (0.2-1.3); Total Protein 5.5 g/dL (6.3-8.2)
[2018-12-05 12:12] LABS: Anisocytosis Slight; Basophils % (A) 0 %; Eosinophils # (A) 0.2 k/uL (0-0.7); Eosinophils % (A) 7 %; HCT 28.4 % (34.0-46.0); HGB 8.9 gm/dL (11.4-16.0); Hypochromasia Marked; Lymphocytes # (A) 0.8 k/uL (1.0-4.8); Lymphocytes % (A) 29 %; MCH 30.4 pg (25.0-35.0); MCHC 31.4 g/dL (31.0-37.0); MCV 96.8 fL (80.0-100.0); Macrocytosis Slight; Mean Platelet Volume 9.3; Monocytes # (A) 0.3 k/uL (0-1.0); Monocytes % (A) 10 %; Neutrophils # (A) 1.4 k/uL (1.3-7.7); Neutrophils % (A) 49 %; Platelet Count 73 k/uL (150-450); RBC 2.93 m/uL (3.80-5.40); RDW 17.8 % (11.5-15.5); WBC 2.7 k/uL (3.8-10.6)
[2018-12-05 12:46] LABS: Glucose,Whole Blood 205 mg/dL (75-99)
[2018-12-05] MEDS: MORPHINE SULFATE ER 15 MG TABLET PO SCH ×2 (13:38→21:20)
[2018-12-05] MEDS: SUCRALFATE 1 GM TAB PO SCH ×3 (13:39→21:19)
[2018-12-05] MEDS: CHOLESTYRAMINE (WITH SUGAR) 4 GM PACKET PO SCH ×2 (13:40→17:21)
[2018-12-05] MEDS: INSULIN REGULAR 100 UNIT/ML VIAL SQ SCH ×2 (13:40→17:20)
[2018-12-05] MEDS: INSULIN ASPART 100 UNIT/ML 1 ML 10 ML VIAL SQ SCH ×3 (13:40→21:21)
[2018-12-05] MEDS: NYSTATIN 100,000 UNIT/ML SUSP 500,000 UNIT/5 ML CUP PO SCH ×3 (13:41→21:19)
[2018-12-05 17:16] LABS: Glucose,Whole Blood 202 mg/dL (75-99)
[2018-12-05] MEDS: DICYCLOMINE 10 MG CAP PO SCH ×2 (17:19→21:20)
[2018-12-05] MEDS: PANTOPRAZOLE 40 MG TABLET PO SCH (17:19)
[2018-12-05] MEDS: PREGABALIN 25 MG CAP PO SCH ×2 (17:19→21:20)
[2018-12-05 19:02] LABS: Iron Saturation 6.33 (12.00-45.00)
[2018-12-05 20:17] LABS: Glucose,Whole Blood 169 mg/dL (75-99)
[2018-12-05] MEDS: INSULIN NPH 300 UNIT/3 ML VIAL SQ SCH (21:19)
[2018-12-06] MEDS: MORPHINE SULFATE 4 MG/ML SYRINGE IV PRN (00:49)
[2018-12-06] MEDS: MORPHINE SULFATE ER 15 MG TABLET PO SCH ×3 (04:03→21:20)
[2018-12-06 06:54] LABS: Glucose,Whole Blood 76 mg/dL (75-99)
[2018-12-06 08:00] LABS: INR 1.4 (<1.2); Prothrombin Time 14.4 sec (9.0-12.0)
[2018-12-06 08:08] LABS: Albumin 2.2 g/dL (3.5-5.0); Potassium 4.8 mmol/L (3.5-5.1); Total Bilirubin 1.5 mg/dL (0.2-1.3); Total Protein 5.5 g/dL (6.3-8.2)
[2018-12-06 08:18] LABS: Anisocytosis Slight; Basophils % (A) 1 %; Eosinophils # (A) 0.3 k/uL (0-0.7); Eosinophils % (A) 9 %; HCT 28.2 % (34.0-46.0); HGB 9.1 gm/dL (11.4-16.0); Hypochromasia Marked; Lymphocytes % (A) 33 %; MCH 30.9 pg (25.0-35.0); MCHC 32.3 g/dL (31.0-37.0); MCV 95.7 fL (80.0-100.0); Mean Platelet Volume 9.2; Monocytes # (A) 0.2 k/uL (0-1.0); Monocytes % (A) 8 %; Neutrophils # (A) 1.4 k/uL (1.3-7.7); Neutrophils % (A) 45 %; RBC 2.95 m/uL (3.80-5.40); RDW 17.6 % (11.5-15.5); WBC 3.1 k/uL (3.8-10.6)
[2018-12-06 08:19] LABS: Platelet Count 68 k/uL (150-450)
[2018-12-06] MEDS: clonazePAM 0.5 MG TAB PO SCH (08:29)
[2018-12-06] MEDS: FUROSEMIDE 40 MG TAB PO SCH (08:30)
[2018-12-06] MEDS: PANTOPRAZOLE 40 MG TABLET PO SCH ×2 (08:30→18:20)
[2018-12-06] MEDS: PREGABALIN 25 MG CAP PO SCH ×3 (08:30→21:19)
[2018-12-06] MEDS: DICYCLOMINE 10 MG CAP PO SCH ×3 (08:31→21:20)
[2018-12-06] MEDS: CHOLESTYRAMINE (WITH SUGAR) 4 GM PACKET PO SCH ×3 (08:31→18:21)
[2018-12-06] MEDS: NYSTATIN 100,000 UNIT/ML SUSP 500,000 UNIT/5 ML CUP PO SCH (08:32)
[2018-12-06] MEDS: FERROUS SULFATE 325 MG TAB PO SCH ×2 (08:33→21:19)
[2018-12-06] MEDS: SUCRALFATE 1 GM TAB PO SCH ×4 (08:33→21:20)
[2018-12-06] MEDS: INSULIN ASPART 100 UNIT/ML 1 ML 10 ML VIAL SQ SCH ×4 (08:34→20:43)
[2018-12-06] MEDS: INSULIN REGULAR 100 UNIT/ML VIAL SQ SCH ×3 (08:36→18:21)
[2018-12-06] MEDS: INSULIN NPH 300 UNIT/3 ML VIAL SQ SCH ×2 (08:39→21:21)
[2018-12-06] MEDS ORDERED: SPIRONOLACTONE 25 MG TAB PO SCH (09:00)
--- NOTE | 2018-12-06 10:31 | P.PN ---
Subjective Progress Note Date: 12/06/18 73-year-old female, patient of Dr. Barnard. She has a known past medical history of liver cancer and follows with oncology services outpatient. She has a medical history of liver cirrhosis, diverticulitis, anemia and diabetes mellitus. Patient presents to the emergency room with increasing abdominal pain and distention. Patient had recently been hospitalized and discharged on December 02 from [facility] and at that time had undergone a paracentesis with 3.5 L removed. Patient reports that her spironolactone had been decreased from 100 mg daily to 25 mg daily. oncology has been placed on consult. Paracentesis has been ordered. Fluids will be hep-locked. Patient's blood pressures on the lower side her losartan and metoprolol are currently on hold. Patient denies any chest pain, fever or chills or sweats, nausea or vomiting. Does report that her stools are looser through her ileostomy. Stool for C. diff ordered. 12/06/2018 patient still complaining of abdominal distention and abdominal pain. Patient seen by oncology services. They are recommending due to patient' s recurrent abdominal ascites that she has outpatient paracentesis as needed. We will also consult GI service due to patient's liver cirrhosis and abdominal ascites. Patient denies any chest pain or shortness breath. Denies any nausea or vomiting. Reports having bowel movements. Denies any difficulty urinating. Patient's blood pressures are stable the losartan and metoprolol are on hold due to lower blood pressures yesterday. Objective - Vital Signs Vital signs: Vital Signs Temp 98.7 F 12/06/18 05:00 Pulse 76 12/06/18 05:00 Resp 16 12/06/18 05:00 BP 107/64 12/06/18 05:00 Pulse Ox 98 12/06/18 05:00 Intake & Output 12/05/18 12/06/18 12/06/18 18:59 06:59 18:59 Intake Total 800 900 Balance 800 900 Weight 107.048 kg 107.048 kg Intake: Intake, IV Titration 800 Amount Sodium Chloride 0.9% 1, 800 000 ml @ 100 mls/hr IV . Q10H JENNY Rx#:[id number] Oral 900 Other: # Voids 1 2 - Exam Head normocephalic Neck supple Lungs clear to auscultation bilaterally no wheezing or crackles Heart regular rate and rhythm S1-S2, no rub or gallop Abdomen is soft distended positive bowel sounds Extremities +2 pitting edema bilaterally Neuro alert and orientated to 3 - Labs CBC & Chem 7: 12/06/18 07:18 12/06/18 07:18 Labs: Abnormal Lab Results - Last 24 Hours (Table) 12/05/18 12/05/18 12/05/18 Range/Units 11:25 11:25 11:25 WBC 2.7 L (3.8-10.6) k/uL RBC 2.93 L (3.80-5.40) m/uL Hgb 8.9 L (11.4-16.0) gm/dL Hct 28.4 L (34.0-46.0) % RDW 17.8 H (11.5-15.5) % Plt Count 73 L (150-450) k/uL Lymphocytes # 0.8 L (1.0-4.8) k/uL PT 14.2 H (9.0-12.0) sec INR 1.4 H (<1.2) Sodium 136 L (137-145) mmol/L Chloride 115 H (98-107) mmol/L Carbon Dioxide 17 L (22-30) mmol/L Glucose 226 H (74-99) mg/dL POC Glucose (mg/dL) (75-99) mg/dL Calcium 7.9 L (8.4-10.2) mg/dL Iron (50-170) ug/dL Iron Saturation (12.00-45.00) Total Bilirubin (0.2-1.3) mg/dL AST 43 H (14-36) U/L Alkaline Phosphatase 169 H (38-126) U/L Total Protein 5.5 L (6.3-8.2) g/dL Albumin 2.2 L (3.5-5.0) g/dL 12/05/18 12/05/18 12/05/18 Range/Units 11:25 12:44 17:15 WBC (3.8-10.6) k/uL RBC (3.80-5.40) m/uL Hgb (11.4-16.0) gm/dL Hct (34.0-46.0) % RDW (11.5-15.5) % Plt Count (150-450) k/uL Lymphocytes # (1.0-4.8) k/uL PT (9.0-12.0) sec INR (<1.2) Sodium (137-145) mmol/L Chloride (98-107) mmol/L Carbon Dioxide (22-30) mmol/L Glucose (74-99) mg/dL POC Glucose (mg/dL) 205 H 202 H (75-99) mg/dL Calcium (8.4-10.2) mg/dL Iron 15 L (50-170) ug/dL Iron Saturation 6.33 L (12.00-45.00) Total Bilirubin (0.2-1.3) mg/dL AST (14-36) U/L Alkaline Phosphatase (38-126) U/L Total Protein (6.3-8.2) g/dL Albumin (3.5-5.0) g/dL 12/05/18 12/06/18 12/06/18 Range/Units 20:14 07:18 07:18 WBC 3.1 L (3.8-10.6) k/uL RBC 2.95 L (3.80-5.40) m/uL Hgb 9.1 L (11.4-16.0) gm/dL Hct 28.2 L (34.0-46.0) % RDW 17.6 H (11.5-15.5) % Plt Count 68 L (150-450) k/uL Lymphocytes # (1.0-4.8) k/uL PT (9.0-12.0) sec INR (<1.2) Sodium (137-145) mmol/L Chloride 114 H (98-107) mmol/L Carbon Dioxide (22-30) mmol/L Glucose (74-99) mg/dL POC Glucose (mg/dL) 169 H (75-99) mg/dL Calcium 8.0 L (8.4-10.2) mg/dL Iron (50-170) ug/dL Iron Saturation (12.00-45.00) Total Bilirubin 1.5 H (0.2-1.3) mg/dL AST 40 H (14-36) U/L Alkaline Phosphatase 159 H (38-126) U/L Total Protein 5.5 L (6.3-8.2) g/dL Albumin 2.2 L (3.5-5.0) g/dL 12/06/18 Range/Units 07:18 WBC (3.8-10.6) k/uL RBC (3.80-5.40) m/uL Hgb (11.4-16.0) gm/dL Hct (34.0-46.0) % RDW (11.5-15.5) % Plt Count (150-450) k/uL Lymphocytes # (1.0-4.8) k/uL PT 14.4 H (9.0-12.0) sec INR 1.4 H (<1.2) Sodium (137-145) mmol/L Chloride (98-107) mmol/L Carbon Dioxide (22-30) mmol/L Glucose (74-99) mg/dL POC Glucose (mg/dL) (75-99) mg/dL Calcium (8.4-10.2) mg/dL Iron (50-170) ug/dL Iron Saturation (12.00-45.00) Total Bilirubin (0.2-1.3) mg/dL AST (14-36) U/L Alkaline Phosphatase (38-126) U/L Total Protein (6.3-8.2) g/dL Albumin (3.5-5.0) g/dL Microbiology - Last 24 Hours (Table) 12/04/18 18:25 Blood Culture - Preliminary Blood No Growth after 24 hours 12/04/18 18:25 Urine Culture - Preliminary Urine,Voided Assessment and Plan Assessment: 1. Abdominal pain with abdominal distention and ascites. Patient required paracentesis on her last hospitalization cytology was negative for malignant cells. Patient will be evaluated for another possible paracentesis. Oncology and GI on consult. 2. History of hepatocellular carcinoma status post chemoembolization 2012, 2015 and 2018 3. Recurrent abdominal ascites requiring previous paracentesis 4. History of diverticulitis with bowel perforation and ileostomy placement 5. Pancytopenia due to known liver cancer. Secondary to chronic liver cirrhosis 6. Chronic anemia secondary to liver cirrhosis and malignancy. Check iron studies. Hemoglobin 9.6 7. Insulin-dependent diabetes mellitus with A1c of 7.1. Continue home meds. Add sliding scale coverage. 8. Elevated liver enzymes chronic due to known liver malignancy 9. Coagulopathy secondary to patient's liver disease. Continue to monitor PT/ INR. 10. Loose stools check stool for C. diff 11. Iron deficiency anemia hemoglobin 9.1. Total iron 15. Start ferrous sulfate 325 mg twice a day Plan Consult GI service regarding abdominal ascites Consult social work regarding home environment and recurrent hospital admissions GI prophylaxis Protonix and DVT prophylaxis SCDs I performed an examination of the patient and discussed their management with the physician Instrument And Electrical Technician. I have reviewed the Physician Instrument And Electrical Technician's notes and agree with the documented findings and plan of care
--- NOTE | 2018-12-06 10:43 | P.CONS ---
History of Present Illness - Reason for Consult Consult date: 12/06/18 Paracentesis Requesting physician: Artemio Lea - Chief Complaint Ascites - History of Present Illness 73-year-old female history of hepatocellular carcinoma 2013 with chemoembolization tumor resection, perforated diverticular disease with ostomy, parastomal hernia, nonalcoholic liver cirrhosis portal hypertension and ascites , diabetes, depression, chronic pain, cholecystectomy admitted with abdominal distention discomfort. Patient underwent diagnostic therapeutic paracentesis with 1.5 L removed. Previous paracentesis in October negative cytology. Home medications Lasix 40 mg daily. Aldactone 25 mg daily. Current white count 3.1. Platelets 60,000. He will at 9.1. INR 1.4. Total bilirubin 1.5. AST 40. ALT 25. AP 159. Review of Systems Constitutional: Denies fever, chills, sweats, weight gain, or loss. HEENT: Negative for migraines, blurred vision or loss, earaches, drainage, tinnitus, oral mucosal lesions, dysphagia, or odynophagia. CARDIAC: Negative for chest pain, arrhythmias, or palpitation. RESPIRATORY: Negative for shortness of breath, hemoptysis, cough, or sputum production. GI: See HPI for pertinent findings. : Negative for hematuria, urgency, frequency, polyuria, or dysuria. GYNc: Negative vaginal discharge. MUSCULOSKELETAL: Chronic abdominal pain. Negative for muscle aches, swelling, arthritis, and arthralgias. NEUROLOGIC: Negative for stroke or TIA. ENDOCRINE: Negative for thyroid problems. SKIN: Negative for rash or itching. PSYCHIATRIC: Negative history for depression and anxiety Past Medical History Past Medical History: Cancer, Diabetes Mellitus, Hypertension, Liver Disease Additional Past Medical History / Comment(s): liver ca- had chemo 10-03-18,past ascities-paracentesis, ulcer(sx),diveticulitis, anx/depression History of Any Multi-Drug Resistant Organisms: MRSA Year Discovered:: 10/23/18 MDRO Source:: MRSA STOOL Past Surgical History: Appendectomy, Bowel Resection, Section, Cholecystectomy, Hysterectomy, Tonsillectomy Additional Past Surgical History / Comment(s): rt rotator cuff repair,carpal tunnel release .liver bx,ilieostomy ,paracentesis, chemo, embolizations of liver tumors Past Anesthesia/Blood Transfusion Reactions: No Reported Reaction Past Psychological History: Anxiety, Depression Additional Psychological History / Comment(s): Reformed smoker. . Retired. No experience. No animal exposures Smoking Status: Former smoker Past Alcohol Use History: None Reported Additional Past Alcohol Use History / Comment(s): started smoking 1962 and quit 1965 Past Drug Use History: None Reported - Past Family History Mother History Unknown: Yes Family Medical History: Congestive Heart Failure (CHF) Medications and Allergies Home Medications Medication Instructions Recorded Confirmed Type Dicyclomine [Bentyl] 10 mg PO TID 10/23/18 12/04/18 History Furosemide [Lasix] 40 mg PO DAILY 10/23/18 12/04/18 History Omeprazole [PriLOSEC] 20 mg PO BID 10/23/18 12/04/18 History Sucralfate [Carafate] 1 gm PO QID 10/23/18 12/04/18 History Insulin NPH Human Isophane 18 unit SQ BID 10/24/18 12/04/18 History [NovoLIN N] Insulin Regular, Human [NovoLIN R] 8 unit SQ AC-TID 10/24/18 12/04/18 History Magnesium 200 mg PO DAILY 10/24/18 12/04/18 History Metoprolol Tartrate 12.5 mg PO DAILY 10/24/18 12/04/18 History Ondansetron [Zofran ODT] 8 mg PO Q8HR 10/24/18 12/04/18 History Nystatin 100,000 Unit/ml Susp 500,000 unit PO QID #12 cup 11/03/18 12/04/18 Rx [Mycostatin Oral Susp] clonazePAM [KlonoPIN] 0.5 mg PO DAILY tab 11/03/18 12/04/18 Rx Cholestyramine (with Sugar) 4 gm PO TID #21 packet 11/04/18 12/04/18 Rx [Questran Packet] Morphine Sulfate ER [Ms Contin] 15 mg PO Q8H #9 tablet 11/22/18 12/04/18 Rx Pregabalin [Lyrica] 25 mg PO TID #9 cap 11/22/18 12/04/18 Rx Losartan [Cozaar] 25 mg PO DAILY #30 tab 12/02/18 12/04/18 Rx Spironolactone [Aldactone] 25 mg PO DAILY #30 tab 12/02/18 12/04/18 Rx Allergies Allergy/AdvReac Type Severity Reaction Status Date / Time GREG Inhibitors Allergy Cough Verified 12/04/18 19:46 amlodipine Allergy Rash/Hives Verified 12/04/18 19:46 oxycodone Allergy Rash/Hives Verified 12/04/18 19:46 Penicillins Allergy Rash/Hives Verified 12/04/18 19:46 hydromorphone [From Dilaudid] AdvReac Unknown Verified 12/04/18 19:46 sodium dodecyclbenzene Allergy Rash/Hives Uncoded 12/04/18 17:44 sulfonate Physical Exam Vitals: Vital Signs Temp Pulse Resp BP Pulse Ox 12/06/18 05:00 98.7 F 76 16 107/64 98 12/06/18 00:00 85 17 12/05/18 21:35 97.6 F 85 17 115/56 100 12/05/18 15:24 74 16 12/05/18 12:15 98.1 F 74 16 118/56 98 Intake and Output 12/05/18 12/06/18 12/06/18 22:59 06:59 14:59 Intake Total 660 240 Balance 660 240 Intake: Oral 660 240 Other: # Voids 2 Weight 107.048 kg 107.048 kg General appearance: The patient is alert, oriented, in no acute distress. HET: Head is normocephalic and atraumatic. Pupils are equal and reactive. Oropharynx is clear without lesions. Neck: Supple without lymphadenopathy. Trachea midline. Heart: S1 S2. Regular rate and rhythm. Lungs: No crackles or wheezes are heard. Abdomen: Soft, obese, distended with moderate ascites with bowel sounds. Ostomy functioning with air and stool. No peritoneal signs. No palpable organomegaly or masses. Extremities: Normal skin color and turgor. No cyanosis, rash, ulceration, clubbing, or edema. Radial and pedal pulses are 2/4 bilaterally. Neurological: No focal deficits. Strength and sensation are grossly intact. Results CBC & Chem 7: 12/06/18 07:18 12/06/18 07:18 Labs: Abnormal Lab Results - Last 24 Hours (Table) 12/05/18 12/05/18 12/05/18 Range/Units 11:25 11:25 11:25 WBC 2.7 L (3.8-10.6) k/uL RBC 2.93 L (3.80-5.40) m/uL Hgb 8.9 L (11.4-16.0) gm/dL Hct 28.4 L (34.0-46.0) % RDW 17.8 H (11.5-15.5) % Plt Count 73 L (150-450) k/uL Lymphocytes # 0.8 L (1.0-4.8) k/uL PT 14.2 H (9.0-12.0) sec INR 1.4 H (<1.2) Sodium 136 L (137-145) mmol/L Chloride 115 H (98-107) mmol/L Carbon Dioxide 17 L (22-30) mmol/L Glucose 226 H (74-99) mg/dL POC Glucose (mg/dL) (75-99) mg/dL Calcium 7.9 L (8.4-10.2) mg/dL Iron (50-170) ug/dL Iron Saturation (12.00-45.00) Total Bilirubin (0.2-1.3) mg/dL AST 43 H (14-36) U/L Alkaline Phosphatase 169 H (38-126) U/L Total Protein 5.5 L (6.3-8.2) g/dL Albumin 2.2 L (3.5-5.0) g/dL 12/05/18 12/05/18 12/05/18 Range/Units 11:25 12:44 17:15 WBC (3.8-10.6) k/uL RBC (3.80-5.40) m/uL Hgb (11.4-16.0) gm/dL Hct (34.0-46.0) % RDW (11.5-15.5) % Plt Count (150-450) k/uL Lymphocytes # (1.0-4.8) k/uL PT (9.0-12.0) sec INR (<1.2) Sodium (137-145) mmol/L Chloride (98-107) mmol/L Carbon Dioxide (22-30) mmol/L Glucose (74-99) mg/dL POC Glucose (mg/dL) 205 H 202 H (75-99) mg/dL Calcium (8.4-10.2) mg/dL Iron 15 L (50-170) ug/dL Iron Saturation 6.33 L (12.00-45.00) Total Bilirubin (0.2-1.3) mg/dL AST (14-36) U/L Alkaline Phosphatase (38-126) U/L Total Protein (6.3-8.2) g/dL Albumin (3.5-5.0) g/dL 12/05/18 12/06/18 12/06/18 Range/Units 20:14 07:18 07:18 WBC 3.1 L (3.8-10.6) k/uL RBC 2.95 L (3.80-5.40) m/uL Hgb 9.1 L (11.4-16.0) gm/dL Hct 28.2 L (34.0-46.0) % RDW 17.6 H (11.5-15.5) % Plt Count 68 L (150-450) k/uL Lymphocytes # (1.0-4.8) k/uL PT (9.0-12.0) sec INR (<1.2) Sodium (137-145) mmol/L Chloride 114 H (98-107) mmol/L Carbon Dioxide (22-30) mmol/L Glucose (74-99) mg/dL POC Glucose (mg/dL) 169 H (75-99) mg/dL Calcium 8.0 L (8.4-10.2) mg/dL Iron (50-170) ug/dL Iron Saturation (12.00-45.00) Total Bilirubin 1.5 H (0.2-1.3) mg/dL AST 40 H (14-36) U/L Alkaline Phosphatase 159 H (38-126) U/L Total Protein 5.5 L (6.3-8.2) g/dL Albumin 2.2 L (3.5-5.0) g/dL 12/06/18 Range/Units 07:18 WBC (3.8-10.6) k/uL RBC (3.80-5.40) m/uL Hgb (11.4-16.0) gm/dL Hct (34.0-46.0) % RDW (11.5-15.5) % Plt Count (150-450) k/uL Lymphocytes # (1.0-4.8) k/uL PT 14.4 H (9.0-12.0) sec INR 1.4 H (<1.2) Sodium (137-145) mmol/L Chloride (98-107) mmol/L Carbon Dioxide (22-30) mmol/L Glucose (74-99) mg/dL POC Glucose (mg/dL) (75-99) mg/dL Calcium (8.4-10.2) mg/dL Iron (50-170) ug/dL Iron Saturation (12.00-45.00) Total Bilirubin (0.2-1.3) mg/dL AST (14-36) U/L Alkaline Phosphatase (38-126) U/L Total Protein (6.3-8.2) g/dL Albumin (3.5-5.0) g/dL Microbiology - Last 24 Hours (Table) 12/04/18 18:25 Blood Culture - Preliminary Blood No Growth after 24 hours 12/04/18 18:25 Urine Culture - Preliminary Urine,Voided Assessment and Plan (1) Ascites Current Visit: Yes Status: Acute Code(s): R18.8 - OTHER ASCITES SNOMED Code(s): 131480476 (2) Portal hypertension Current Visit: Yes Status: Acute Code(s): K76.6 - PORTAL HYPERTENSION SNOMED Code(s): 79944417 (3) Chronic abdominal pain Current Visit: Yes Status: Acute Code(s): R10.9 - UNSPECIFIED ABDOMINAL PAIN ; G89.29 - OTHER CHRONIC PAIN SNOMED Code(s): 625449203 (4) Colostomy in place Current Visit: Yes Status: Acute Code(s): Z93.3 - COLOSTOMY STATUS SNOMED Code(s): 109484174 (5) Liver cancer Current Visit: Yes Status: Acute Code(s): C22.9 - MALIG NEOPLASM OF LIVER, NOT SPECIFIED PRIMARY OR SEC SNOMED Code(s): 30061099 Plan: 1. Therapeutic paracentesis. Low-salt diet. Lasix 40 mg daily. Increase Aldactone 50 mg daily. Daily CBC BMP. Follow up in GI office in 2-3 weeks for reevaluation and discussion of outpatient paracentesis scheduling. Thank you for this kind referral and the opportunity to participate in the care of your patient. This consultation was discussed with Dr. Francois. The impression and plan of care have been directed as dictated.
[2018-12-06 11:06] LABS: Glucose,Whole Blood 115 mg/dL (75-99)
--- NOTE | 2018-12-06 12:13 | P.PN ---
Subjective Progress Note Date: 12/06/18 Principal diagnosis: Recurrent Ascites and abdominal pain No acute events overnight, last paracentesis 11/18/18 removal 1.5 L Objective - Vital Signs Vital signs: Vital Signs Temp 98.7 F 12/06/18 05:00 Pulse 76 12/06/18 08:00 Resp 16 12/06/18 08:00 BP 107/64 12/06/18 05:00 Pulse Ox 98 12/06/18 05:00 Intake & Output 12/05/18 12/06/18 12/06/18 18:59 06:59 18:59 Intake Total 800 900 Balance 800 900 Weight 107.048 kg 107.048 kg Intake: Intake, IV Titration 800 Amount Sodium Chloride 0.9% 1, 800 000 ml @ 100 mls/hr IV . Q10H JENNY Rx#:[id number] Oral 900 Other: # Voids 1 2 - Exam - Constitutional General appearance: no acute distress - EENT Eyes: EOMI, PERRLA ENT: hearing grossly normal, normal oropharynx - Neck Neck: no lymphadenopathy Thyroid: bilateral: normal size - Respiratory Respiratory: bilateral: CTA - Cardiovascular Rhythm: regular Heart sounds: normal: S1, S2 - Gastrointestinal Right lower quadrant ostomy General gastrointestinal: distended, normal bowel sounds, soft - Integumentary Integumentary: normal - Neurologic Neurologic: CNII-XII intact - Musculoskeletal Musculoskeletal: generalized weakness, strength equal bilaterally - Psychiatric Psychiatric: A&O x's 3, appropriate affect - Labs CBC & Chem 7: 12/06/18 07:18 12/06/18 07:18 Labs: Abnormal Lab Results - Last 24 Hours (Table) 12/05/18 12/05/18 12/05/18 Range/Units 11:25 11:25 11:25 WBC 2.7 L (3.8-10.6) k/uL RBC 2.93 L (3.80-5.40) m/uL Hgb 8.9 L (11.4-16.0) gm/dL Hct 28.4 L (34.0-46.0) % RDW 17.8 H (11.5-15.5) % Plt Count 73 L (150-450) k/uL Lymphocytes # 0.8 L (1.0-4.8) k/uL PT 14.2 H (9.0-12.0) sec INR 1.4 H (<1.2) Sodium 136 L (137-145) mmol/L Chloride 115 H (98-107) mmol/L Carbon Dioxide 17 L (22-30) mmol/L Glucose 226 H (74-99) mg/dL POC Glucose (mg/dL) (75-99) mg/dL Calcium 7.9 L (8.4-10.2) mg/dL Iron (50-170) ug/dL Iron Saturation (12.00-45.00) Total Bilirubin (0.2-1.3) mg/dL AST 43 H (14-36) U/L Alkaline Phosphatase 169 H (38-126) U/L Total Protein 5.5 L (6.3-8.2) g/dL Albumin 2.2 L (3.5-5.0) g/dL 12/05/18 12/05/18 12/05/18 Range/Units 11:25 12:44 17:15 WBC (3.8-10.6) k/uL RBC (3.80-5.40) m/uL Hgb (11.4-16.0) gm/dL Hct (34.0-46.0) % RDW (11.5-15.5) % Plt Count (150-450) k/uL Lymphocytes # (1.0-4.8) k/uL PT (9.0-12.0) sec INR (<1.2) Sodium (137-145) mmol/L Chloride (98-107) mmol/L Carbon Dioxide (22-30) mmol/L Glucose (74-99) mg/dL POC Glucose (mg/dL) 205 H 202 H (75-99) mg/dL Calcium (8.4-10.2) mg/dL Iron 15 L (50-170) ug/dL Iron Saturation 6.33 L (12.00-45.00) Total Bilirubin (0.2-1.3) mg/dL AST (14-36) U/L Alkaline Phosphatase (38-126) U/L Total Protein (6.3-8.2) g/dL Albumin (3.5-5.0) g/dL 12/05/18 12/06/18 12/06/18 Range/Units 20:14 07:18 07:18 WBC 3.1 L (3.8-10.6) k/uL RBC 2.95 L (3.80-5.40) m/uL Hgb 9.1 L (11.4-16.0) gm/dL Hct 28.2 L (34.0-46.0) % RDW 17.6 H (11.5-15.5) % Plt Count 68 L (150-450) k/uL Lymphocytes # (1.0-4.8) k/uL PT (9.0-12.0) sec INR (<1.2) Sodium (137-145) mmol/L Chloride 114 H (98-107) mmol/L Carbon Dioxide (22-30) mmol/L Glucose (74-99) mg/dL POC Glucose (mg/dL) 169 H (75-99) mg/dL Calcium 8.0 L (8.4-10.2) mg/dL Iron (50-170) ug/dL Iron Saturation (12.00-45.00) Total Bilirubin 1.5 H (0.2-1.3) mg/dL AST 40 H (14-36) U/L Alkaline Phosphatase 159 H (38-126) U/L Total Protein 5.5 L (6.3-8.2) g/dL Albumin 2.2 L (3.5-5.0) g/dL 12/06/18 12/06/18 Range/Units 07:18 11:05 WBC (3.8-10.6) k/uL RBC (3.80-5.40) m/uL Hgb (11.4-16.0) gm/dL Hct (34.0-46.0) % RDW (11.5-15.5) % Plt Count (150-450) k/uL Lymphocytes # (1.0-4.8) k/uL PT 14.4 H (9.0-12.0) sec INR 1.4 H (<1.2) Sodium (137-145) mmol/L Chloride (98-107) mmol/L Carbon Dioxide (22-30) mmol/L Glucose (74-99) mg/dL POC Glucose (mg/dL) 115 H (75-99) mg/dL Calcium (8.4-10.2) mg/dL Iron (50-170) ug/dL Iron Saturation (12.00-45.00) Total Bilirubin (0.2-1.3) mg/dL AST (14-36) U/L Alkaline Phosphatase (38-126) U/L Total Protein (6.3-8.2) g/dL Albumin (3.5-5.0) g/dL Microbiology - Last 24 Hours (Table) 12/04/18 18:25 Blood Culture - Preliminary Blood No Growth after 24 hours 12/04/18 18:25 Urine Culture - Preliminary Urine,Voided Assessment and Plan Plan: Assessment and Plan (1) Liver cancer Current Visit: Yes Status: Acute Code(s): C22.9 - MALIG NEOPLASM OF LIVER, NOT SPECIFIED PRIMARY OR SEC SNOMED Code(s): 53993469 (2) Peripheral edema Current Visit: Yes Status: Acute Code(s): R60.9 - EDEMA, UNSPECIFIED SNOMED Code(s): 894347592 (3) Abdominal pain Current Visit: No Status: Acute Code(s): R10.9 - UNSPECIFIED ABDOMINAL PAIN SNOMED Code(s): 16983172 (4) Ascites Current Visit: No Status: Acute Code(s): R18.8 - OTHER ASCITES SNOMED Code (s): 247603256 (5) High risk for readmission Current Visit: No Status: Acute Code(s): Z91.89 - OTH PERSONAL RISK FACTORS , NOT ELSEWHERE CLASSIFIED SNOMED Code(s): 540956034 (6) Intractable abdominal pain Current Visit: No Status: Acute Code(s): R10.9 - UNSPECIFIED ABDOMINAL PAIN SNOMED Code(s): 81644422 (7) Hepatocellular carcinoma Current Visit: No Status: Chronic Priority: Medium Code(s): C22.0 - LIVER CELL CARCINOMA SNOMED Code(s): 899165372 Plan: Assessment and Recommentations: 1. Hepatocellular Carcinoma - Status Post Chemoembolization: 2012, 2016 and recent 2018 - Multiple medical opinions from multiple outside hospitals - Currently Monitoring 2. Recurrent abdominal pain related admission: Recurrent admission, despite education and outpatient plan, remediation again provided. - I recommend keeping her on PO Pain medication without IV Bous for breakthrough as she will need to control at home - Recommend PRN standing order Weekly Paracentesis, this is not related to cancer but underlying liver disease, cirrhosis. - Inconsistent and unclear: Likely multifactoral - Recurrent Ascites - Requiring Paracentesis, Recent MRSA Stools, Diarrhea 3. Abdominal Ascites: Status Post 3.6 Liters off abdomen end of Decemeber and 1.5 on 11/18/18 last admission - Recommend PRN Standing order for outpatient paracentesis - Recent Paracentesis was negative for malignant cells Rec: - Resonable to consider ? Psychiatry consultation or protective services social worker to assess actual home situation with recurrent hospitalizations and prolonged stays, patient has very low threshold for ER and admission. - Hepatocellular currently on Observation - Abdominal pain, unknown etiology, likely more related to recurrent ascites and again rec. Standing order for outpatient, this does not appear related to Carcinoma but more Hepato disease, cirrhosis. Cytology has been negative - Utilize PO pain management, i have discontinued IV as she is not asking often , should be able to control pain PO only - Encourage her to get up and out of bed, PT/OT. THank you for allowing us to participate in the care of this patient we will follow with you
--- NOTE | 2018-12-06 12:37 | US ---
EXAMINATION TYPE: US abdomen limited DATE OF EXAM: 12/06/2018 COMPARISON: CT abdomen and pelvis November 11, 2018 CLINICAL HISTORY: assess for fluid. Cirrhosis with swelling, history of ascites. There are 8 images saved show recurrent moderate amount of abdominal ascites in the bilateral upper a nd lower quadrants IMPRESSION: As above.
[2018-12-06] MEDS: MAGNESIUM OXIDE 400 MG TAB PO SCH (13:13)
[2018-12-06] MEDS: CLOTRIMAZOLE TROCHE 10 MG TROCHE PO SCH ×4 (13:13→23:17)
[2018-12-06] MEDS: MORPHINE SULFATE IR 15 MG TABLET PO PRN (13:14)
--- NOTE | 2018-12-06 15:09 | US ---
EXAMINATION TYPE: US paracentesis abd w/image DATE OF EXAM: 12/06/2018 COMPARISON: NONE HISTORY: Ascites. PROCEDURE: Maximal barrier technique was utilized. The skin overlying a suitable pocket of fluid was localized with ultrasound and the overlying skin was prepped and draped. Ultrasound was utilized with sterile technique. Lidocaine was used for local anesthesia and a skin jenny made with a scalpel. Catheter was advanced under direct ultrasound guidance into a suitable pocket of fluid and approximately 3.8 liter s of serous fluid were removed. Catheter was withdrawn and hemostasis achieved. There is no immedia te complication; the patient is discharged in stable condition. IMPRESSION: STATUS POST ULTRASOUND GUIDED PARACENTESIS FOR PALLIATION OF ASCITES. THIS PROCEDURE WA S PERFORMED BY THE UNDERSIGNED.
[2018-12-06 17:05] LABS: Glucose,Whole Blood 153 mg/dL (75-99)
[2018-12-06] MEDS: ALBUMIN HUMAN 25% 50 ML in EMPTY BAG 1 BAG IVPB SCH ×2 (18:05→18:26)
[2018-12-06 20:41] LABS: Glucose,Whole Blood 112 mg/dL (75-99)
[2018-12-07] MEDS: MORPHINE SULFATE ER 15 MG TABLET PO SCH ×3 (03:02→20:29)
[2018-12-07] MEDS: CLOTRIMAZOLE TROCHE 10 MG TROCHE PO SCH ×4 (05:07→20:29)
[2018-12-07 06:45] LABS: Glucose,Whole Blood 125 mg/dL (75-99)
[2018-12-07] MEDS: MORPHINE SULFATE IR 15 MG TABLET PO PRN (07:35)
[2018-12-07] MEDS: INSULIN REGULAR 100 UNIT/ML VIAL SQ SCH ×3 (07:36→16:51)
[2018-12-07] MEDS: PANTOPRAZOLE 40 MG TABLET PO SCH ×2 (07:36→16:51)
[2018-12-07] MEDS: CHOLESTYRAMINE (WITH SUGAR) 4 GM PACKET PO SCH ×3 (07:36→16:49)
[2018-12-07] MEDS: INSULIN ASPART 100 UNIT/ML 1 ML 10 ML VIAL SQ SCH ×4 (07:42→20:30)
[2018-12-07 08:42] LABS: Anisocytosis Slight; Basophils % (A) 1 %; Eosinophils # (A) 0.2 k/uL (0-0.7); Eosinophils % (A) 7 %; HCT 30.6 % (34.0-46.0); HGB 9.5 gm/dL (11.4-16.0); Hypochromasia Marked; Lymphocytes % (A) 31 %; MCH 29.9 pg (25.0-35.0); MCHC 30.9 g/dL (31.0-37.0); MCV 96.8 fL (80.0-100.0); Macrocytosis Slight; Mean Platelet Volume 9.1; Monocytes # (A) 0.3 k/uL (0-1.0); Monocytes % (A) 8 %; Neutrophils # (A) 1.6 k/uL (1.3-7.7); Neutrophils % (A) 50 %; RBC 3.16 m/uL (3.80-5.40); RDW 17.5 % (11.5-15.5); WBC 3.2 k/uL (3.8-10.6)
[2018-12-07 08:46] LABS: INR 1.5 (<1.2); Prothrombin Time 14.7 sec (9.0-12.0)
[2018-12-07 08:47] LABS: Platelet Count 81 k/uL (150-450)
[2018-12-07 08:53] LABS: ALT 29 U/L (9-52); AST 48 U/L (14-36); Albumin 2.4 g/dL (3.5-5.0); Alkaline Phosphatase 159 U/L (38-126); Anion Gap 7 mmol/L; Blood Urea Nitrogen 8 mg/dL (7-17); Carbon Dioxide 18 mmol/L (22-30); Chloride 112 mmol/L (98-107); Glucose 112 mg/dL (74-99); Potassium 4.7 mmol/L (3.5-5.1); Sodium 137 mmol/L (137-145); Total Bilirubin 1.9 mg/dL (0.2-1.3); Total Protein 5.7 g/dL (6.3-8.2)
--- NOTE | 2018-12-07 10:29 | P.PN ---
Subjective Progress Note Date: 12/07/18 73-year-old female, patient of Dr. Barnard. She has a known past medical history of liver cancer and follows with oncology services outpatient. She has a medical history of liver cirrhosis, diverticulitis, anemia and diabetes mellitus. Patient presents to the emergency room with increasing abdominal pain and distention. Patient had recently been hospitalized and discharged on December 02 from [facility] and at that time had undergone a paracentesis with 3.5 L removed. Patient reports that her spironolactone had been decreased from 100 mg daily to 25 mg daily. oncology has been placed on consult. Paracentesis has been ordered. Fluids will be hep-locked. Patient's blood pressures on the lower side her losartan and metoprolol are currently on hold. Patient denies any chest pain, fever or chills or sweats, nausea or vomiting. Does report that her stools are looser through her ileostomy. Stool for C. diff ordered. 12/06/2018 patient still complaining of abdominal distention and abdominal pain. Patient seen by oncology services. They are recommending due to patient' s recurrent abdominal ascites that she has outpatient paracentesis as needed. We will also consult GI service due to patient's liver cirrhosis and abdominal ascites. Patient denies any chest pain or shortness breath. Denies any nausea or vomiting. Reports having bowel movements. Denies any difficulty urinating. Patient's blood pressures are stable the losartan and metoprolol are on hold due to lower blood pressures yesterday. 12/07/2018 patient had paracentesis completed yesterday she had 3.8 L removed. Patient reports she is still not feeling very well still having some lower abdominal comfort discomfort. Did have an episode of vomiting this morning. She does have Zofran on board. GI service increased her Aldactone from 25-50 mg daily. Patient denies any chest pain or shortness of breath. Denies any burning with urination. Discussed the importance with the patient to follow-up closely with GI service in the outpatient setting to help prevent recurrent hospitalizations Objective - Vital Signs Vital signs: Vital Signs Temp 98.8 F 12/07/18 05:37 Pulse 78 12/07/18 05:37 Resp 18 12/07/18 05:37 BP 100/53 12/07/18 05:37 Pulse Ox 98 12/07/18 05:37 Intake & Output 12/06/18 12/07/18 12/07/18 18:59 06:59 18:59 Intake Total 600 Balance 600 Intake: Oral 600 Other: Voiding Method Toilet # Voids 1 - Exam Head normocephalic Neck supple Lungs clear to auscultation bilaterally no wheezing or crackles Heart regular rate and rhythm S1-S2, no rub or gallop Abdomen is soft distended positive bowel sounds Extremities +2 pitting edema bilaterally Neuro alert and orientated to 3 - Labs CBC & Chem 7: 12/07/18 07:50 12/07/18 07:50 Labs: Abnormal Lab Results - Last 24 Hours (Table) 12/06/18 12/06/18 12/06/18 Range/Units 11:05 16:58 20:39 WBC (3.8-10.6) k/uL RBC (3.80-5.40) m/uL Hgb (11.4-16.0) gm/dL Hct (34.0-46.0) % MCHC (31.0-37.0) g/dL RDW (11.5-15.5) % Plt Count (150-450) k/uL PT (9.0-12.0) sec INR (<1.2) Chloride (98-107) mmol/L Carbon Dioxide (22-30) mmol/L Glucose (74-99) mg/dL POC Glucose (mg/dL) 115 H 153 H 112 H (75-99) mg/dL Calcium (8.4-10.2) mg/dL Total Bilirubin (0.2-1.3) mg/dL AST (14-36) U/L Alkaline Phosphatase (38-126) U/L Total Protein (6.3-8.2) g/dL Albumin (3.5-5.0) g/dL 12/07/18 12/07/18 12/07/18 Range/Units 06:42 07:50 07:50 WBC 3.2 L (3.8-10.6) k/uL RBC 3.16 L (3.80-5.40) m/uL Hgb 9.5 L (11.4-16.0) gm/dL Hct 30.6 L (34.0-46.0) % MCHC 30.9 L (31.0-37.0) g/dL RDW 17.5 H (11.5-15.5) % Plt Count 81 L (150-450) k/uL PT (9.0-12.0) sec INR (<1.2) Chloride 112 H (98-107) mmol/L Carbon Dioxide 18 L (22-30) mmol/L Glucose 112 H (74-99) mg/dL POC Glucose (mg/dL) 125 H (75-99) mg/dL Calcium 8.0 L (8.4-10.2) mg/dL Total Bilirubin 1.9 H (0.2-1.3) mg/dL AST 48 H (14-36) U/L Alkaline Phosphatase 159 H (38-126) U/L Total Protein 5.7 L (6.3-8.2) g/dL Albumin 2.4 L (3.5-5.0) g/dL 12/07/18 Range/Units 07:50 WBC (3.8-10.6) k/uL RBC (3.80-5.40) m/uL Hgb (11.4-16.0) gm/dL Hct (34.0-46.0) % MCHC (31.0-37.0) g/dL RDW (11.5-15.5) % Plt Count (150-450) k/uL PT 14.7 H (9.0-12.0) sec INR 1.5 H (<1.2) Chloride (98-107) mmol/L Carbon Dioxide (22-30) mmol/L Glucose (74-99) mg/dL POC Glucose (mg/dL) (75-99) mg/dL Calcium (8.4-10.2) mg/dL Total Bilirubin (0.2-1.3) mg/dL AST (14-36) U/L Alkaline Phosphatase (38-126) U/L Total Protein (6.3-8.2) g/dL Albumin (3.5-5.0) g/dL Microbiology - Last 24 Hours (Table) 12/04/18 18:25 Blood Culture - Preliminary Blood No Growth after 48 hours 12/04/18 18:25 Urine Culture - Final Urine,Voided Assessment and Plan Assessment: 1. Abdominal pain with abdominal distention and ascites. Patient status post paracentesis with 3.8 L removed. Patient's been cleared by GI service for discharge. GI service increase Aldactone to 50 mg daily 2. History of hepatocellular carcinoma status post chemoembolization 2012, 2015 and 2018. Patient seen by oncology 3. Recurrent abdominal ascites requiring previous paracentesis 4. History of diverticulitis with bowel perforation and ileostomy placement 5. Pancytopenia due to known liver cancer. Secondary to chronic liver cirrhosis 6. Chronic anemia secondary to liver cirrhosis and malignancy. Check iron studies. Hemoglobin 9.6 7. Insulin-dependent diabetes mellitus with A1c of 7.1. Continue home meds. Add sliding scale coverage. 8. Elevated liver enzymes chronic due to known liver malignancy 9. Coagulopathy secondary to patient's liver disease. Continue to monitor PT/ INR. 10. History of nonalcoholic liver cirrhosis 11. Iron deficiency anemia: Total iron 15. Start ferrous sulfate 325 mg twice a day. Hemoglobin up to 9.5 Plan Encouraged patient to increase activity. Consult physical therapy Consult social work regarding home environment and recurrent hospital admissions Anticipate discharge home possibly tomorrow GI prophylaxis Protonix and DVT prophylaxis SCDs I performed an examination of the patient and discussed their management with the physician Tooling Mechanic. I have reviewed the Physician Tooling Mechanic's notes and agree with the documented findings and plan of care
--- NOTE | 2018-12-07 10:41 | P.PN ---
Subjective Progress Note Date: 12/07/18 Principal diagnosis: ascites liver ca Status post paracentesis yesterday 3.8 L removal. Received 25 g of albumin. BUN 8. Creatinine 0.7. Objective - Vital Signs Vital signs: Vital Signs Temp 98.8 F 12/07/18 05:37 Pulse 78 12/07/18 05:37 Resp 18 12/07/18 05:37 BP 100/53 12/07/18 05:37 Pulse Ox 98 12/07/18 05:37 Intake & Output 12/06/18 12/07/18 12/07/18 18:59 06:59 18:59 Intake Total 600 Balance 600 Intake: Oral 600 Other: Voiding Method Toilet # Voids 1 - Exam General appearance: The patient is alert, oriented, in no acute distress. HET: Head is normocephalic and atraumatic. Pupils are equal and reactive. Oropharynx is clear without lesions. Neck: Supple without lymphadenopathy. Trachea midline. Heart: S1 S2. Regular rate and rhythm. Lungs: No crackles or wheezes are heard. Abdomen: Soft, nontender, nondistended ostomy with stool and air with bowel sounds. No peritoneal signs. No palpable organomegaly or masses. Extremities: Normal skin color and turgor. No cyanosis, rash, ulceration, clubbing, or edema. Radial and pedal pulses are 2/4 bilaterally. Neurological: No focal deficits. Strength and sensation are grossly intact. - Labs CBC & Chem 7: 12/07/18 07:50 12/07/18 07:50 Labs: Abnormal Lab Results - Last 24 Hours (Table) 12/06/18 12/06/18 12/06/18 Range/Units 11:05 16:58 20:39 WBC (3.8-10.6) k/uL RBC (3.80-5.40) m/uL Hgb (11.4-16.0) gm/dL Hct (34.0-46.0) % MCHC (31.0-37.0) g/dL RDW (11.5-15.5) % Plt Count (150-450) k/uL PT (9.0-12.0) sec INR (<1.2) Chloride (98-107) mmol/L Carbon Dioxide (22-30) mmol/L Glucose (74-99) mg/dL POC Glucose (mg/dL) 115 H 153 H 112 H (75-99) mg/dL Calcium (8.4-10.2) mg/dL Total Bilirubin (0.2-1.3) mg/dL AST (14-36) U/L Alkaline Phosphatase (38-126) U/L Total Protein (6.3-8.2) g/dL Albumin (3.5-5.0) g/dL 12/07/18 12/07/18 12/07/18 Range/Units 06:42 07:50 07:50 WBC 3.2 L (3.8-10.6) k/uL RBC 3.16 L (3.80-5.40) m/uL Hgb 9.5 L (11.4-16.0) gm/dL Hct 30.6 L (34.0-46.0) % MCHC 30.9 L (31.0-37.0) g/dL RDW 17.5 H (11.5-15.5) % Plt Count 81 L (150-450) k/uL PT (9.0-12.0) sec INR (<1.2) Chloride 112 H (98-107) mmol/L Carbon Dioxide 18 L (22-30) mmol/L Glucose 112 H (74-99) mg/dL POC Glucose (mg/dL) 125 H (75-99) mg/dL Calcium 8.0 L (8.4-10.2) mg/dL Total Bilirubin 1.9 H (0.2-1.3) mg/dL AST 48 H (14-36) U/L Alkaline Phosphatase 159 H (38-126) U/L Total Protein 5.7 L (6.3-8.2) g/dL Albumin 2.4 L (3.5-5.0) g/dL 12/07/18 Range/Units 07:50 WBC (3.8-10.6) k/uL RBC (3.80-5.40) m/uL Hgb (11.4-16.0) gm/dL Hct (34.0-46.0) % MCHC (31.0-37.0) g/dL RDW (11.5-15.5) % Plt Count (150-450) k/uL PT 14.7 H (9.0-12.0) sec INR 1.5 H (<1.2) Chloride (98-107) mmol/L Carbon Dioxide (22-30) mmol/L Glucose (74-99) mg/dL POC Glucose (mg/dL) (75-99) mg/dL Calcium (8.4-10.2) mg/dL Total Bilirubin (0.2-1.3) mg/dL AST (14-36) U/L Alkaline Phosphatase (38-126) U/L Total Protein (6.3-8.2) g/dL Albumin (3.5-5.0) g/dL Microbiology - Last 24 Hours (Table) 12/04/18 18:25 Blood Culture - Preliminary Blood No Growth after 48 hours 12/04/18 18:25 Urine Culture - Final Urine,Voided Assessment and Plan (1) Ascites Narrative/Plan: Status post paracentesis 3.8 L removed Current Visit: Yes Status: Acute Code(s): R18.8 - OTHER ASCITES SNOMED Code(s): 025442396 (2) Portal hypertension Current Visit: Yes Status: Acute Code(s): K76.6 - PORTAL HYPERTENSION SNOMED Code(s): 69772886 (3) Chronic abdominal pain Current Visit: Yes Status: Acute Code(s): R10.9 - UNSPECIFIED ABDOMINAL PAIN ; G89.29 - OTHER CHRONIC PAIN SNOMED Code(s): 206191163 (4) Colostomy in place Current Visit: Yes Status: Acute Code(s): Z93.3 - COLOSTOMY STATUS SNOMED Code(s): 609459177 (5) Liver cancer Current Visit: Yes Status: Acute Code(s): C22.9 - MALIG NEOPLASM OF LIVER, NOT SPECIFIED PRIMARY OR SEC SNOMED Code(s): 14777367 Plan: 1. Recommend Aldactone 50 mg daily. Lasix 40 mg daily return to GI office in 3 -4 weeks. Outpatient paracentesis will be contingent on her outpatient course. Patient has had 3 paracentesis in the last several weeks with low volume removal not recommending scheduled paracentesis at this time. Adjustments can be made with diuretics in the outpatient setting based on BUN/creatinine monitoring. Follow-up with PCP within a week. Low-salt diet. We'll follow as needed. Assessment and plan a care discussed with Dr. Francois
[2018-12-07 10:57] LABS: Glucose,Whole Blood 192 mg/dL (75-99)
[2018-12-07] MEDS: clonazePAM 0.5 MG TAB PO SCH (11:06)
[2018-12-07] MEDS: FUROSEMIDE 40 MG TAB PO SCH (11:07)
[2018-12-07] MEDS: FERROUS SULFATE 325 MG TAB PO SCH ×2 (11:07→20:30)
[2018-12-07] MEDS: DICYCLOMINE 10 MG CAP PO SCH ×3 (11:07→22:23)
[2018-12-07] MEDS: INSULIN NPH 300 UNIT/3 ML VIAL SQ SCH ×2 (11:07→20:30)
[2018-12-07] MEDS: SUCRALFATE 1 GM TAB PO SCH ×4 (11:08→22:23)
[2018-12-07] MEDS: SPIRONOLACTONE 25 MG TAB PO SCH (11:08)
[2018-12-07] MEDS: PREGABALIN 25 MG CAP PO SCH ×3 (11:08→22:23)
[2018-12-07] MEDS: MAGNESIUM OXIDE 400 MG TAB PO SCH (11:16)
--- NOTE | 2018-12-07 13:59 | P.PN ---
Subjective Progress Note Date: 12/07/18 Principal diagnosis: Recurrent Ascites and abdominal pain No acute events overnight, last paracentesis 11/18/18 removal 1.5 L Status Post 3.8 Liters removed. GI is following Objective - Vital Signs Vital signs: Vital Signs Temp 98.4 F 12/07/18 12:12 Pulse 82 12/07/18 12:12 Resp 16 12/07/18 12:12 BP 113/55 12/07/18 12:12 Pulse Ox 100 12/07/18 12:12 Intake & Output 12/06/18 12/07/18 12/07/18 18:59 06:59 18:59 Intake Total 600 1200 Balance 600 1200 Weight 107.048 kg Intake: Oral 600 1200 Other: Voiding Method Toilet # Voids 1 2 - Exam - Constitutional General appearance: no acute distress - EENT Eyes: EOMI, PERRLA ENT: hearing grossly normal, normal oropharynx - Neck Neck: no lymphadenopathy Thyroid: bilateral: normal size - Respiratory Respiratory: bilateral: CTA - Cardiovascular Rhythm: regular Heart sounds: normal: S1, S2 - Gastrointestinal Right lower quadrant ostomy General gastrointestinal: distended, normal bowel sounds, soft - Integumentary Integumentary: normal - Neurologic Neurologic: CNII-XII intact - Musculoskeletal Musculoskeletal: generalized weakness, strength equal bilaterally - Psychiatric Psychiatric: A&O x's 3, appropriate affect - Labs CBC & Chem 7: 12/07/18 07:50 12/07/18 07:50 Labs: Abnormal Lab Results - Last 24 Hours (Table) 12/06/18 12/06/18 12/07/18 Range/Units 16:58 20:39 06:42 WBC (3.8-10.6) k/uL RBC (3.80-5.40) m/uL Hgb (11.4-16.0) gm/dL Hct (34.0-46.0) % MCHC (31.0-37.0) g/dL RDW (11.5-15.5) % Plt Count (150-450) k/uL PT (9.0-12.0) sec INR (<1.2) Chloride (98-107) mmol/L Carbon Dioxide (22-30) mmol/L Glucose (74-99) mg/dL POC Glucose (mg/dL) 153 H 112 H 125 H (75-99) mg/dL Calcium (8.4-10.2) mg/dL Total Bilirubin (0.2-1.3) mg/dL AST (14-36) U/L Alkaline Phosphatase (38-126) U/L Total Protein (6.3-8.2) g/dL Albumin (3.5-5.0) g/dL 12/07/18 12/07/18 12/07/18 Range/Units 07:50 07:50 07:50 WBC 3.2 L (3.8-10.6) k/uL RBC 3.16 L (3.80-5.40) m/uL Hgb 9.5 L (11.4-16.0) gm/dL Hct 30.6 L (34.0-46.0) % MCHC 30.9 L (31.0-37.0) g/dL RDW 17.5 H (11.5-15.5) % Plt Count 81 L (150-450) k/uL PT 14.7 H (9.0-12.0) sec INR 1.5 H (<1.2) Chloride 112 H (98-107) mmol/L Carbon Dioxide 18 L (22-30) mmol/L Glucose 112 H (74-99) mg/dL POC Glucose (mg/dL) (75-99) mg/dL Calcium 8.0 L (8.4-10.2) mg/dL Total Bilirubin 1.9 H (0.2-1.3) mg/dL AST 48 H (14-36) U/L Alkaline Phosphatase 159 H (38-126) U/L Total Protein 5.7 L (6.3-8.2) g/dL Albumin 2.4 L (3.5-5.0) g/dL 12/07/18 Range/Units 10:56 WBC (3.8-10.6) k/uL RBC (3.80-5.40) m/uL Hgb (11.4-16.0) gm/dL Hct (34.0-46.0) % MCHC (31.0-37.0) g/dL RDW (11.5-15.5) % Plt Count (150-450) k/uL PT (9.0-12.0) sec INR (<1.2) Chloride (98-107) mmol/L Carbon Dioxide (22-30) mmol/L Glucose (74-99) mg/dL POC Glucose (mg/dL) 192 H (75-99) mg/dL Calcium (8.4-10.2) mg/dL Total Bilirubin (0.2-1.3) mg/dL AST (14-36) U/L Alkaline Phosphatase (38-126) U/L Total Protein (6.3-8.2) g/dL Albumin (3.5-5.0) g/dL Microbiology - Last 24 Hours (Table) 12/04/18 18:25 Blood Culture - Preliminary Blood No Growth after 48 hours 12/04/18 18:25 Urine Culture - Final Urine,Voided Assessment and Plan Plan: Assessment and Plan (1) Liver cancer Current Visit: Yes Status: Acute Code(s): C22.9 - MALIG NEOPLASM OF LIVER, NOT SPECIFIED PRIMARY OR SEC SNOMED Code(s): 74495067 (2) Peripheral edema Current Visit: Yes Status: Acute Code(s): R60.9 - EDEMA, UNSPECIFIED SNOMED Code(s): 253089362 (3) Abdominal pain Current Visit: No Status: Acute Code(s): R10.9 - UNSPECIFIED ABDOMINAL PAIN SNOMED Code(s): 00872087 (4) Ascites Current Visit: No Status: Acute Code(s): R18.8 - OTHER ASCITES SNOMED Code (s): 441315573 (5) High risk for readmission Current Visit: No Status: Acute Code(s): Z91.89 - OTH PERSONAL RISK FACTORS , NOT ELSEWHERE CLASSIFIED SNOMED Code(s): 884343954 (6) Intractable abdominal pain Current Visit: No Status: Acute Code(s): R10.9 - UNSPECIFIED ABDOMINAL PAIN SNOMED Code(s): 99274480 (7) Hepatocellular carcinoma Current Visit: No Status: Chronic Priority: Medium Code(s): C22.0 - LIVER CELL CARCINOMA SNOMED Code(s): 361657163 Plan: Assessment and Recommentations: 1. Hepatocellular Carcinoma - Status Post Chemoembolization: 2012, 2015 and recent 2018 - Multiple medical opinions from multiple outside hospitals - Currently Monitoring 2. Recurrent abdominal pain related admission: Recurrent admission, despite education and outpatient plan, remediation again provided. - I recommend keeping her on PO Pain medication without IV Bous for breakthrough as she will need to control at home - Recommend PRN standing order Weekly Paracentesis, this is not related to cancer but underlying liver disease, cirrhosis. - Inconsistent and unclear: Likely multifactoral - Recurrent Ascites - Requiring Paracentesis, Recent MRSA Stools, Diarrhea 3. Abdominal Ascites: Status Post 3.6 Liters off abdomen end of Decemeber and 1.5 on 11/18/18 last admission - Recommend PRN Standing order for outpatient paracentesis - Recent Paracentesis was negative for malignant cells Rec: - Resonable to consider ? Psychiatry consultation or transition social worker to assess actual home situation with recurrent hospitalizations and prolonged stays, patient has very low threshold for ER and admission. - Hepatocellular currently on Observation - Abdominal pain, unknown etiology, likely more related to recurrent ascites and again rec. Standing order for outpatient, this does not appear related to Carcinoma but more Hepato disease, cirrhosis. Cytology has been negative - Utilize PO pain management, i have discontinued IV as she is not asking often , should be able to control pain PO only - Encourage her to get up and out of bed, PT/OT. - Agree with GI, Discharge per primary
[2018-12-07 17:12] LABS: Glucose,Whole Blood 96 mg/dL (75-99)
[2018-12-07 20:13] LABS: Glucose,Whole Blood 135 mg/dL (75-99)
[2018-12-08] MEDS: CLOTRIMAZOLE TROCHE 10 MG TROCHE PO SCH ×6 (02:35→23:34)
[2018-12-08] MEDS: MORPHINE SULFATE ER 15 MG TABLET PO SCH ×3 (04:57→20:19)
[2018-12-08] MEDS: MORPHINE SULFATE IR 15 MG TABLET PO PRN ×3 (05:24→21:47)
[2018-12-08 07:05] LABS: Glucose,Whole Blood 134 mg/dL (75-99)
[2018-12-08] MEDS: SUCRALFATE 1 GM TAB PO SCH ×4 (08:02→21:47)
[2018-12-08] MEDS: SPIRONOLACTONE 25 MG TAB PO SCH (08:02)
[2018-12-08] MEDS: clonazePAM 0.5 MG TAB PO SCH (08:03)
[2018-12-08] MEDS: PREGABALIN 25 MG CAP PO SCH ×3 (08:03→21:47)
[2018-12-08] MEDS: FERROUS SULFATE 325 MG TAB PO SCH ×2 (08:03→20:20)
[2018-12-08] MEDS: PANTOPRAZOLE 40 MG TABLET PO SCH ×2 (08:03→17:49)
[2018-12-08] MEDS: FUROSEMIDE 40 MG TAB PO SCH (08:03)
[2018-12-08] MEDS: DICYCLOMINE 10 MG CAP PO SCH ×3 (08:03→21:47)
[2018-12-08] MEDS: INSULIN REGULAR 100 UNIT/ML VIAL SQ SCH ×3 (08:04→17:49)
[2018-12-08] MEDS: INSULIN ASPART 100 UNIT/ML 1 ML 10 ML VIAL SQ SCH ×4 (08:04→20:20)
[2018-12-08] MEDS: CHOLESTYRAMINE (WITH SUGAR) 4 GM PACKET PO SCH ×3 (08:04→16:15)
[2018-12-08] MEDS: INSULIN NPH 300 UNIT/3 ML VIAL SQ SCH ×2 (08:05→20:20)
[2018-12-08 09:33] LABS: INR 1.5 (<1.2); Prothrombin Time 14.9 sec (9.0-12.0)
[2018-12-08 09:35] LABS: Albumin 2.7 g/dL (3.5-5.0); Potassium 4.9 mmol/L (3.5-5.1); Total Bilirubin 1.9 mg/dL (0.2-1.3); Total Protein 6.2 g/dL (6.3-8.2)
[2018-12-08 09:36] LABS: Anisocytosis Slight; Basophils % (A) 1 %; Eosinophils # (A) 0.2 k/uL (0-0.7); Eosinophils % (A) 6 %; HCT 31.5 % (34.0-46.0); HGB 9.7 gm/dL (11.4-16.0); Hypochromasia Marked; Lymphocytes # (A) 1.3 k/uL (1.0-4.8); Lymphocytes % (A) 32 %; MCH 29.8 pg (25.0-35.0); MCHC 30.7 g/dL (31.0-37.0); MCV 96.9 fL (80.0-100.0); Macrocytosis Slight; Monocytes # (A) 0.2 k/uL (0-1.0); Monocytes % (A) 6 %; Neutrophils # (A) 2.1 k/uL (1.3-7.7); Neutrophils % (A) 53 %; RBC 3.25 m/uL (3.80-5.40); RDW 17.5 % (11.5-15.5); WBC 3.9 k/uL (3.8-10.6)
[2018-12-08 09:48] LABS: Platelet Count 85 k/uL (150-450)
[2018-12-08 10:52] LABS: Glucose,Whole Blood 119 mg/dL (75-99)
--- NOTE | 2018-12-08 11:10 | P.PN ---
Subjective Progress Note Date: 12/08/18 73-year-old female, patient of Dr. Barnard. She has a known past medical history of liver cancer and follows with oncology services outpatient. She has a medical history of liver cirrhosis, diverticulitis, anemia and diabetes mellitus. Patient presents to the emergency room with increasing abdominal pain and distention. Patient had recently been hospitalized and discharged on December 02 from [facility] and at that time had undergone a paracentesis with 3.5 L removed. Patient reports that her spironolactone had been decreased from 100 mg daily to 25 mg daily. oncology has been placed on consult. Paracentesis has been ordered. Fluids will be hep-locked. Patient's blood pressures on the lower side her losartan and metoprolol are currently on hold. Patient denies any chest pain, fever or chills or sweats, nausea or vomiting. Does report that her stools are looser through her ileostomy. Stool for C. diff ordered. 12/06/2018 patient still complaining of abdominal distention and abdominal pain. Patient seen by oncology services. They are recommending due to patient' s recurrent abdominal ascites that she has outpatient paracentesis as needed. We will also consult GI service due to patient's liver cirrhosis and abdominal ascites. Patient denies any chest pain or shortness breath. Denies any nausea or vomiting. Reports having bowel movements. Denies any difficulty urinating. Patient's blood pressures are stable the losartan and metoprolol are on hold due to lower blood pressures yesterday. 12/07/2018 patient had paracentesis completed yesterday she had 3.8 L removed. Patient reports she is still not feeling very well still having some lower abdominal comfort discomfort. Did have an episode of vomiting this morning. She does have Zofran on board. GI service increased her Aldactone from 25-50 mg daily. Patient denies any chest pain or shortness of breath. Denies any burning with urination. Discussed the importance with the patient to follow-up closely with GI service in the outpatient setting to help prevent recurrent hospitalizations 12/08/2018 patient complaining of chest pressure this morning. Now resolved. No further episodes of vomiting. Does report some lower abdominal pain. Reports having regular stools in the colostomy. Denies any burning with urination. Did have a low-grade temp of 99.1 EKG and troponin have been ordered. Objective - Vital Signs Vital signs: Vital Signs Temp 99.1 F 12/08/18 05:58 Pulse 87 12/08/18 08:20 Resp 16 12/08/18 08:20 BP 107/54 12/08/18 05:58 Pulse Ox 99 12/08/18 05:58 Intake & Output 12/07/18 12/08/18 12/08/18 18:59 06:59 18:59 Intake Total 1200 200 Balance 1200 200 Weight 107.048 kg Intake: Oral 1200 200 Other: Voiding Method Toilet Toilet Toilet # Voids 2 1 - Exam Head normocephalic Neck supple Lungs clear to auscultation bilaterally no wheezing or crackles Heart regular rate and rhythm S1-S2, no rub or gallop Abdomen is soft distended positive bowel sounds Extremities +2 pitting edema bilaterally Neuro alert and orientated to 3 - Labs CBC & Chem 7: 12/08/18 08:38 12/08/18 08:38 Labs: Abnormal Lab Results - Last 24 Hours (Table) 12/07/18 12/08/18 12/08/18 Range/Units 20:12 07:04 08:38 RBC 3.25 L (3.80-5.40) m/uL Hgb 9.7 L (11.4-16.0) gm/dL Hct 31.5 L (34.0-46.0) % MCHC 30.7 L (31.0-37.0) g/dL RDW 17.5 H (11.5-15.5) % Plt Count 85 L (150-450) k/uL PT (9.0-12.0) sec INR (<1.2) Sodium (137-145) mmol/L Chloride (98-107) mmol/L Carbon Dioxide (22-30) mmol/L Glucose (74-99) mg/dL POC Glucose (mg/dL) 135 H 134 H (75-99) mg/dL Calcium (8.4-10.2) mg/dL Total Bilirubin (0.2-1.3) mg/dL AST (14-36) U/L Alkaline Phosphatase (38-126) U/L Total Protein (6.3-8.2) g/dL Albumin (3.5-5.0) g/dL 0112/08/18 12/08/18 Range/Units 08:38 08:38 10:51 RBC (3.80-5.40) m/uL Hgb (11.4-16.0) gm/dL Hct (34.0-46.0) % MCHC (31.0-37.0) g/dL RDW (11.5-15.5) % Plt Count (150-450) k/uL PT 14.9 H (9.0-12.0) sec INR 1.5 H (<1.2) Sodium 135 L (137-145) mmol/L Chloride 108 H (98-107) mmol/L Carbon Dioxide 21 L (22-30) mmol/L Glucose 194 H (74-99) mg/dL POC Glucose (mg/dL) 119 H (75-99) mg/dL Calcium 8.0 L (8.4-10.2) mg/dL Total Bilirubin 1.9 H (0.2-1.3) mg/dL AST 49 H (14-36) U/L Alkaline Phosphatase 194 H (38-126) U/L Total Protein 6.2 L (6.3-8.2) g/dL Albumin 2.7 L (3.5-5.0) g/dL Microbiology - Last 24 Hours (Table) 12/04/18 18:25 Blood Culture - Preliminary Blood No Growth after 72 hours Assessment and Plan Assessment: 1. Abdominal pain with abdominal distention and ascites. Patient status post paracentesis with 3.8 L removed. Patient's been cleared by GI service for discharge. GI service increase Aldactone to 50 mg daily 2. History of hepatocellular carcinoma status post chemoembolization 2012, 2015 and 2018. Patient seen by oncology 3. Recurrent abdominal ascites requiring previous paracentesis 4. History of diverticulitis with bowel perforation and ileostomy placement 5. Pancytopenia due to known liver cancer. Secondary to chronic liver cirrhosis 6. Chronic anemia secondary to liver cirrhosis and malignancy. Check iron studies. Hemoglobin 9.6 7. Insulin-dependent diabetes mellitus with A1c of 7.1. Continue home meds. Add sliding scale coverage. 8. Elevated liver enzymes chronic due to known liver malignancy 9. Coagulopathy secondary to patient's liver disease. Continue to monitor PT/ INR. 10. History of nonalcoholic liver cirrhosis 11. Iron deficiency anemia: Total iron 15. Start ferrous sulfate 325 mg twice a day. Hemoglobin up to 9.5 12. Chest pressure: Check troponin and EKG Plan Encouraged patient to increase activity. Consult physical therapy Consult social work regarding home environment and recurrent hospital admissions Anticipate discharge home possibly tomorrow GI prophylaxis Protonix and DVT prophylaxis SCDs I performed an examination of the patient and discussed their management with the physician Chart Reader. I have reviewed the Physician Chart Reader's notes and agree with the documented findings and plan of care
[2018-12-08] MEDS: MAGNESIUM OXIDE 400 MG TAB PO SCH (13:29)
[2018-12-08 17:21] LABS: Glucose,Whole Blood 113 mg/dL (75-99)
[2018-12-08 19:58] LABS: Glucose,Whole Blood 164 mg/dL (75-99)
[2018-12-09] MEDS: CLOTRIMAZOLE TROCHE 10 MG TROCHE PO SCH ×5 (04:34→23:32)
[2018-12-09] MEDS: MORPHINE SULFATE ER 15 MG TABLET PO SCH ×3 (04:34→20:13)
[2018-12-09] MEDS: MORPHINE SULFATE IR 15 MG TABLET PO PRN ×2 (04:40→14:56)
[2018-12-09 06:56] LABS: Glucose,Whole Blood 87 mg/dL (75-99)
[2018-12-09] MEDS: INSULIN ASPART 100 UNIT/ML 1 ML 10 ML VIAL SQ SCH ×4 (07:06→21:43)
[2018-12-09 08:41] LABS: ALT 31 U/L (9-52); AST 44 U/L (14-36); Albumin 2.2 g/dL (3.5-5.0); Alkaline Phosphatase 156 U/L (38-126); Anion Gap 1 mmol/L; Blood Urea Nitrogen 9 mg/dL (7-17); Calcium 7.8 mg/dL (8.4-10.2); Carbon Dioxide 22 mmol/L (22-30); Chloride 113 mmol/L (98-107); Glucose 72 mg/dL (74-99); Potassium 4.8 mmol/L (3.5-5.1); Sodium 136 mmol/L (137-145); Total Bilirubin 1.4 mg/dL (0.2-1.3); Total Protein 5.4 g/dL (6.3-8.2)
[2018-12-09 08:49] LABS: Anisocytosis Slight; Basophils % (A) 1 %; Eosinophils # (A) 0.3 k/uL (0-0.7); Eosinophils % (A) 8 %; HCT 27.3 % (34.0-46.0); HGB 8.4 gm/dL (11.4-16.0); Hypochromasia Marked; Lymphocytes # (A) 0.9 k/uL (1.0-4.8); Lymphocytes % (A) 30 %; MCH 29.6 pg (25.0-35.0); MCHC 30.8 g/dL (31.0-37.0); MCV 96.1 fL (80.0-100.0); Macrocytosis Slight; Mean Platelet Volume 9.1; Monocytes # (A) 0.3 k/uL (0-1.0); Monocytes % (A) 9 %; Neutrophils # (A) 1.6 k/uL (1.3-7.7); Neutrophils % (A) 50 %; RBC 2.84 m/uL (3.80-5.40); RDW 17.5 % (11.5-15.5); WBC 3.2 k/uL (3.8-10.6)
[2018-12-09] MEDS: CHOLESTYRAMINE (WITH SUGAR) 4 GM PACKET PO SCH ×3 (08:55→18:10)
[2018-12-09] MEDS: INSULIN REGULAR 100 UNIT/ML VIAL SQ SCH ×3 (08:55→17:40)
[2018-12-09] MEDS: clonazePAM 0.5 MG TAB PO SCH (08:56)
[2018-12-09] MEDS: DICYCLOMINE 10 MG CAP PO SCH ×3 (08:56→21:45)
[2018-12-09] MEDS: PANTOPRAZOLE 40 MG TABLET PO SCH ×2 (08:56→18:10)
[2018-12-09] MEDS: FERROUS SULFATE 325 MG TAB PO SCH ×2 (08:57→21:43)
[2018-12-09] MEDS: FUROSEMIDE 40 MG TAB PO SCH (08:57)
[2018-12-09] MEDS: PREGABALIN 25 MG CAP PO SCH ×3 (08:58→21:45)
[2018-12-09] MEDS: INSULIN NPH 300 UNIT/3 ML VIAL SQ SCH ×2 (08:58→21:45)
[2018-12-09] MEDS: SPIRONOLACTONE 25 MG TAB PO SCH (08:58)
[2018-12-09] MEDS: SUCRALFATE 1 GM TAB PO SCH ×4 (08:59→21:45)
[2018-12-09 09:08] LABS: Platelet Count 75 k/uL (150-450)
[2018-12-09 11:13] LABS: Glucose,Whole Blood 135 mg/dL (75-99)
--- NOTE | 2018-12-09 12:54 | P.PN ---
Subjective Progress Note Date: 12/09/18 73-year-old female, patient of Dr. Barnard. She has a known past medical history of liver cancer and follows with oncology services outpatient. She has a medical history of liver cirrhosis, diverticulitis, anemia and diabetes mellitus. Patient presents to the emergency room with increasing abdominal pain and distention. Patient had recently been hospitalized and discharged on December 02 from [facility] and at that time had undergone a paracentesis with 3.5 L removed. Patient reports that her spironolactone had been decreased from 100 mg daily to 25 mg daily. oncology has been placed on consult. Paracentesis has been ordered. Fluids will be hep-locked. Patient's blood pressures on the lower side her losartan and metoprolol are currently on hold. Patient denies any chest pain, fever or chills or sweats, nausea or vomiting. Does report that her stools are looser through her ileostomy. Stool for C. diff ordered. 12/06/2018 patient still complaining of abdominal distention and abdominal pain. Patient seen by oncology services. They are recommending due to patient' s recurrent abdominal ascites that she has outpatient paracentesis as needed. We will also consult GI service due to patient's liver cirrhosis and abdominal ascites. Patient denies any chest pain or shortness breath. Denies any nausea or vomiting. Reports having bowel movements. Denies any difficulty urinating. Patient's blood pressures are stable the losartan and metoprolol are on hold due to lower blood pressures yesterday. 12/07/2018 patient had paracentesis completed yesterday she had 3.8 L removed. Patient reports she is still not feeling very well still having some lower abdominal comfort discomfort. Did have an episode of vomiting this morning. She does have Zofran on board. GI service increased her Aldactone from 25-50 mg daily. Patient denies any chest pain or shortness of breath. Denies any burning with urination. Discussed the importance with the patient to follow-up closely with GI service in the outpatient setting to help prevent recurrent hospitalizations 12/08/2018 patient complaining of chest pressure this morning. Now resolved. No further episodes of vomiting. Does report some lower abdominal pain. Reports having regular stools in the colostomy. Denies any burning with urination. Did have a low-grade temp of 99.1 EKG and troponin have been ordered. 12/09/2018 patient complaining of one episode of vomiting this morning and dizziness. Orthostatics were checked and negative. EKG from yesterday shows sinus rhythm with PACs and a right bundle branch block. Troponin was negative. Patient has had no further episodes of chest pain. Reports having regular stools through her colostomy. Patient reports that she doesn't feel ready for discharge Objective - Vital Signs Vital signs: Vital Signs Temp 98.3 F 12/09/18 05:00 Pulse 75 12/09/18 11:55 Resp 16 12/09/18 11:55 BP 107/56 12/09/18 11:55 Pulse Ox 99 12/09/18 05:00 Intake & Output 12/08/18 12/09/18 12/09/18 18:59 06:59 18:59 Intake Total 240 840 Balance 240 840 Intake: Oral 240 840 Other: Voiding Method Toilet Toilet Toilet # Voids 3 2 - Exam Head normocephalic Neck supple Lungs clear to auscultation bilaterally no wheezing or crackles Heart regular rate and rhythm S1-S2, no rub or gallop Abdomen is soft distended positive bowel sounds Extremities +2 pitting edema bilaterally Neuro alert and orientated to 3 - Labs CBC & Chem 7: 12/09/18 07:02 12/09/18 07:02 Labs: Abnormal Lab Results - Last 24 Hours (Table) 12/08/18 12/08/18 12/09/18 Range/Units 17:20 19:57 07:02 WBC 3.2 L (3.8-10.6) k/uL RBC 2.84 L (3.80-5.40) m/uL Hgb 8.4 L (11.4-16.0) gm/dL Hct 27.3 L (34.0-46.0) % MCHC 30.8 L (31.0-37.0) g/dL RDW 17.5 H (11.5-15.5) % Plt Count 75 L (150-450) k/uL Lymphocytes # 0.9 L (1.0-4.8) k/uL Sodium (137-145) mmol/L Chloride (98-107) mmol/L Glucose (74-99) mg/dL POC Glucose (mg/dL) 113 H 164 H (75-99) mg/dL Calcium (8.4-10.2) mg/dL Total Bilirubin (0.2-1.3) mg/dL AST (14-36) U/L Alkaline Phosphatase (38-126) U/L Total Protein (6.3-8.2) g/dL Albumin (3.5-5.0) g/dL 12/09/18 12/09/18 Range/Units 07:02 11:09 WBC (3.8-10.6) k/uL RBC (3.80-5.40) m/uL Hgb (11.4-16.0) gm/dL Hct (34.0-46.0) % MCHC (31.0-37.0) g/dL RDW (11.5-15.5) % Plt Count (150-450) k/uL Lymphocytes # (1.0-4.8) k/uL Sodium 136 L (137-145) mmol/L Chloride 113 H (98-107) mmol/L Glucose 72 L (74-99) mg/dL POC Glucose (mg/dL) 135 H (75-99) mg/dL Calcium 7.8 L (8.4-10.2) mg/dL Total Bilirubin 1.4 H (0.2-1.3) mg/dL AST 44 H (14-36) U/L Alkaline Phosphatase 156 H (38-126) U/L Total Protein 5.4 L (6.3-8.2) g/dL Albumin 2.2 L (3.5-5.0) g/dL Microbiology - Last 24 Hours (Table) 12/04/18 18:25 Blood Culture - Preliminary Blood No Growth after 96 hours Assessment and Plan Assessment: 1. Abdominal pain with abdominal distention and ascites. Patient status post paracentesis with 3.8 L removed. Patient's been cleared by GI service for discharge. GI service increase Aldactone to 50 mg daily 2. History of hepatocellular carcinoma status post chemoembolization 2012, 2016 and 2018. Patient seen by oncology 3. Recurrent abdominal ascites requiring previous paracentesis 4. History of diverticulitis with bowel perforation and ileostomy placement 5. Pancytopenia due to known liver cancer. Secondary to chronic liver cirrhosis 6. Chronic anemia secondary to liver cirrhosis and malignancy. Check iron studies. Hemoglobin 9.6 7. Insulin-dependent diabetes mellitus with A1c of 7.1. Continue home meds. Add sliding scale coverage. 8. Elevated liver enzymes chronic due to known liver malignancy 9. Coagulopathy secondary to patient's liver disease. Continue to monitor PT/ INR. 10. History of nonalcoholic liver cirrhosis 11. Iron deficiency anemia: Total iron 15. Start ferrous sulfate 325 mg twice a day. Hemoglobin up to 9.5 12. Chest pressure: Resolved. Troponin negative. EKG sinus rhythm with PACs and right bundle branch block 13. Dizziness and vomiting this morning. Orthostatics were checked and negative. We'll continue to monitor Plan Encouraged patient to increase activity. Consult physical therapy Consult social work regarding home environment and recurrent hospital admissions Anticipate discharge home possibly tomorrow GI prophylaxis Protonix and DVT prophylaxis SCDs I performed an examination of the patient and discussed their management with the physician Mid Level Business Analyst. I have reviewed the Physician Mid Level Business Analyst's notes and agree with the documented findings and plan of care
[2018-12-09] MEDS: MAGNESIUM OXIDE 400 MG TAB PO SCH (13:04)
--- NOTE | 2018-12-09 14:44 | P.PN ---
Subjective Progress Note Date: 12/09/18 Principal diagnosis: Recurrent Ascites and abdominal pain Patient is anxious about potential discharge, stated she vomited this am and is not ready. We have discussed this many time, possible need for ECF versus Rehab as outpatient on discharge could be option. Will defer to primary team. Psych consultation to investigate underlying personality disorder resonable? Social work regarding potential of inadequate home situation which makes her fearful to stay or be at home? Objective - Vital Signs Vital signs: Vital Signs Temp 98.3 F 12/09/18 05:00 Pulse 75 12/09/18 11:55 Resp 16 12/09/18 11:55 BP 107/56 12/09/18 11:55 Pulse Ox 99 12/09/18 05:00 Intake & Output 12/08/18 12/09/18 12/09/18 18:59 06:59 18:59 Intake Total 240 840 Balance 240 840 Intake: Oral 240 840 Other: Voiding Method Toilet Toilet Toilet # Voids 3 2 - Exam - Constitutional General appearance: no acute distress - EENT Eyes: EOMI, PERRLA ENT: hearing grossly normal, normal oropharynx - Neck Neck: no lymphadenopathy Thyroid: bilateral: normal size - Respiratory Respiratory: bilateral: CTA - Cardiovascular Rhythm: regular Heart sounds: normal: S1, S2 - Gastrointestinal Right lower quadrant ostomy General gastrointestinal: distended, normal bowel sounds, soft - Integumentary Integumentary: normal - Neurologic Neurologic: CNII-XII intact - Musculoskeletal Musculoskeletal: generalized weakness, strength equal bilaterally - Psychiatric Psychiatric: A&O x's 3, appropriate affect - Labs CBC & Chem 7: 12/09/18 07:02 12/09/18 07:02 Labs: Abnormal Lab Results - Last 24 Hours (Table) 12/08/18 12/08/18 12/09/18 Range/Units 17:20 19:57 07:02 WBC 3.2 L (3.8-10.6) k/uL RBC 2.84 L (3.80-5.40) m/uL Hgb 8.4 L (11.4-16.0) gm/dL Hct 27.3 L (34.0-46.0) % MCHC 30.8 L (31.0-37.0) g/dL RDW 17.5 H (11.5-15.5) % Plt Count 75 L (150-450) k/uL Lymphocytes # 0.9 L (1.0-4.8) k/uL Sodium (137-145) mmol/L Chloride (98-107) mmol/L Glucose (74-99) mg/dL POC Glucose (mg/dL) 113 H 164 H (75-99) mg/dL Calcium (8.4-10.2) mg/dL Total Bilirubin (0.2-1.3) mg/dL AST (14-36) U/L Alkaline Phosphatase (38-126) U/L Total Protein (6.3-8.2) g/dL Albumin (3.5-5.0) g/dL 12/09/18 12/09/18 Range/Units 07:02 11:09 WBC (3.8-10.6) k/uL RBC (3.80-5.40) m/uL Hgb (11.4-16.0) gm/dL Hct (34.0-46.0) % MCHC (31.0-37.0) g/dL RDW (11.5-15.5) % Plt Count (150-450) k/uL Lymphocytes # (1.0-4.8) k/uL Sodium 136 L (137-145) mmol/L Chloride 113 H (98-107) mmol/L Glucose 72 L (74-99) mg/dL POC Glucose (mg/dL) 135 H (75-99) mg/dL Calcium 7.8 L (8.4-10.2) mg/dL Total Bilirubin 1.4 H (0.2-1.3) mg/dL AST 44 H (14-36) U/L Alkaline Phosphatase 156 H (38-126) U/L Total Protein 5.4 L (6.3-8.2) g/dL Albumin 2.2 L (3.5-5.0) g/dL Microbiology - Last 24 Hours (Table) 12/04/18 18:25 Blood Culture - Preliminary Blood No Growth after 96 hours Assessment and Plan Plan: Assessment and Plan (1) Liver cancer Current Visit: Yes Status: Acute Code(s): C22.9 - MALIG NEOPLASM OF LIVER, NOT SPECIFIED PRIMARY OR SEC SNOMED Code(s): 36200656 (2) Peripheral edema Current Visit: Yes Status: Acute Code(s): R60.9 - EDEMA, UNSPECIFIED SNOMED Code(s): 923822705 (3) Abdominal pain Current Visit: No Status: Acute Code(s): R10.9 - UNSPECIFIED ABDOMINAL PAIN SNOMED Code(s): 75219766 (4) Ascites Current Visit: No Status: Acute Code(s): R18.8 - OTHER ASCITES SNOMED Code (s): 493348208 (5) High risk for readmission Current Visit: No Status: Acute Code(s): Z91.89 - OTH PERSONAL RISK FACTORS , NOT ELSEWHERE CLASSIFIED SNOMED Code(s): 932967261 (6) Intractable abdominal pain Current Visit: No Status: Acute Code(s): R10.9 - UNSPECIFIED ABDOMINAL PAIN SNOMED Code(s): 20045683 (7) Hepatocellular carcinoma Current Visit: No Status: Chronic Priority: Medium Code(s): C22.0 - LIVER CELL CARCINOMA SNOMED Code(s): 103138596 Plan: Assessment and Recommentations: 1. Hepatocellular Carcinoma - Status Post Chemoembolization: 2012, 2016 and recent 2018 - Multiple medical opinions from multiple outside hospitals - Currently Monitoring 2. Recurrent abdominal pain related admission: Recurrent admission, despite education and outpatient plan, remediation again provided. - I recommend keeping her on PO Pain medication without IV Bous for breakthrough as she will need to control at home - Recommend PRN standing order Weekly Paracentesis, this is not related to cancer but underlying liver disease, cirrhosis. - Inconsistent and unclear: Likely multifactoral - Recurrent Ascites - Requiring Paracentesis, Recent MRSA Stools, Diarrhea 3. Abdominal Ascites: Status Post 3.6 Liters off abdomen end of me and 1.5 on 11/18/18 last admission - Recommend PRN Standing order for outpatient paracentesis - Recent Paracentesis was negative for malignant cells Rec: - Patient again "does not feel ready to go home" unclear as we have had many discussions - Social work to investigate home situation and if potential inadequate home/ living situation - ?ECF or assisted living options - Does not appear to have progressive cancer, remains on observation off treatment.
[2018-12-09 17:25] LABS: Glucose,Whole Blood 53 mg/dL (75-99)
[2018-12-09 17:52] LABS: Glucose,Whole Blood 63 mg/dL (75-99)
[2018-12-09 17:52] LABS: Glucose,Whole Blood 68 mg/dL (75-99)
[2018-12-09 18:10] LABS: Glucose,Whole Blood 140 mg/dL (75-99)
[2018-12-09 20:18] LABS: Glucose,Whole Blood 166 mg/dL (75-99)
[2018-12-10 02:34] LABS: Glucose,Whole Blood 115 mg/dL (75-99)
[2018-12-10] MEDS: MORPHINE SULFATE ER 15 MG TABLET PO SCH ×2 (04:46→22:21)
[2018-12-10] MEDS: CLOTRIMAZOLE TROCHE 10 MG TROCHE PO SCH ×4 (04:47→22:38)
[2018-12-10 07:12] LABS: Glucose,Whole Blood 118 mg/dL (75-99)
[2018-12-10] MEDS: SPIRONOLACTONE 25 MG TAB PO SCH (08:21)
[2018-12-10] MEDS: INSULIN ASPART 100 UNIT/ML 1 ML 10 ML VIAL SQ SCH ×4 (08:24→22:38)
[2018-12-10] MEDS: INSULIN REGULAR 100 UNIT/ML VIAL SQ SCH ×3 (08:24→22:23)
[2018-12-10] MEDS: CHOLESTYRAMINE (WITH SUGAR) 4 GM PACKET PO SCH ×3 (08:24→22:23)
[2018-12-10] MEDS: DICYCLOMINE 10 MG CAP PO SCH ×3 (08:25→22:39)
[2018-12-10] MEDS: PANTOPRAZOLE 40 MG TABLET PO SCH ×2 (08:25→22:22)
[2018-12-10] MEDS: FUROSEMIDE 40 MG TAB PO SCH (08:25)
[2018-12-10] MEDS: FERROUS SULFATE 325 MG TAB PO SCH ×2 (08:25→22:38)
[2018-12-10] MEDS: SUCRALFATE 1 GM TAB PO SCH ×4 (08:26→22:39)
[2018-12-10] MEDS: clonazePAM 0.5 MG TAB PO SCH (08:30)
[2018-12-10] MEDS: INSULIN NPH 300 UNIT/3 ML VIAL SQ SCH ×2 (08:31→22:39)
[2018-12-10] MEDS: PREGABALIN 25 MG CAP PO SCH ×3 (08:31→22:39)
[2018-12-10 12:07] LABS: Glucose,Whole Blood 127 mg/dL (75-99)
[2018-12-10 18:47] LABS: Glucose,Whole Blood 106 mg/dL (75-99)
[2018-12-10 21:09] LABS: Glucose,Whole Blood 194 mg/dL (75-99)
[2018-12-10] MEDS: MAGNESIUM OXIDE 400 MG TAB PO SCH (22:21)
[2018-12-11] MEDS: CLOTRIMAZOLE TROCHE 10 MG TROCHE PO SCH ×5 (00:54→21:13)
[2018-12-11] MEDS: MORPHINE SULFATE ER 15 MG TABLET PO SCH ×4 (06:36→19:34)
[2018-12-11 06:55] LABS: Glucose,Whole Blood 87 mg/dL (75-99)
[2018-12-11] MEDS: SPIRONOLACTONE 25 MG TAB PO SCH (08:05)
[2018-12-11] MEDS: INSULIN ASPART 100 UNIT/ML 1 ML 10 ML VIAL SQ SCH ×4 (08:06→21:14)
[2018-12-11] MEDS: CHOLESTYRAMINE (WITH SUGAR) 4 GM PACKET PO SCH ×3 (08:06→17:34)
[2018-12-11] MEDS: INSULIN REGULAR 100 UNIT/ML VIAL SQ SCH ×3 (08:07→17:35)
[2018-12-11] MEDS: INSULIN NPH 300 UNIT/3 ML VIAL SQ SCH ×2 (08:07→22:07)
[2018-12-11] MEDS: FUROSEMIDE 40 MG TAB PO SCH (08:08)
[2018-12-11] MEDS: SUCRALFATE 1 GM TAB PO SCH ×4 (08:08→22:08)
[2018-12-11] MEDS: FERROUS SULFATE 325 MG TAB PO SCH ×2 (08:08→21:13)
[2018-12-11] MEDS: PANTOPRAZOLE 40 MG TABLET PO SCH ×2 (08:08→17:34)
[2018-12-11] MEDS: PREGABALIN 25 MG CAP PO SCH ×3 (08:08→21:13)
[2018-12-11] MEDS: clonazePAM 0.5 MG TAB PO SCH (08:11)
[2018-12-11] MEDS: DICYCLOMINE 10 MG CAP PO SCH ×3 (08:11→22:08)
[2018-12-11] MEDS: HYDROmorphone 0.5 MG/0.5 ML SYRINGE IVP PRN ×4 (09:14→21:14)
[2018-12-11 11:01] LABS: Glucose,Whole Blood 121 mg/dL (75-99)
--- NOTE | 2018-12-11 12:20 | P.PN ---
Subjective Progress Note Date: 12/10/18 Date of visit 12/10/2018 73-year-old female, patient of Dr. Barnard. She has a known past medical history of liver cancer and follows with oncology services outpatient. She has a medical history of liver cirrhosis, diverticulitis, anemia and diabetes mellitus. Patient presents to the emergency room with increasing abdominal pain and distention. Patient had recently been hospitalized and discharged on December 02 from [facility] and at that time had undergone a paracentesis with 3.5 L removed. Patient reports that her spironolactone had been decreased from 100 mg daily to 25 mg daily. oncology has been placed on consult. Paracentesis has been ordered. Fluids will be hep-locked. Patient's blood pressures on the lower side her losartan and metoprolol are currently on hold. Patient denies any chest pain, fever or chills or sweats, nausea or vomiting. Does report that her stools are looser through her ileostomy. Stool for C. diff ordered. 12/06/2018 patient still complaining of abdominal distention and abdominal pain. Patient seen by oncology services. They are recommending due to patient' s recurrent abdominal ascites that she has outpatient paracentesis as needed. We will also consult GI service due to patient's liver cirrhosis and abdominal ascites. Patient denies any chest pain or shortness breath. Denies any nausea or vomiting. Reports having bowel movements. Denies any difficulty urinating. Patient's blood pressures are stable the losartan and metoprolol are on hold due to lower blood pressures yesterday. 12/07/2018 patient had paracentesis completed yesterday she had 3.8 L removed. Patient reports she is still not feeling very well still having some lower abdominal comfort discomfort. Did have an episode of vomiting this morning. She does have Zofran on board. GI service increased her Aldactone from 25-50 mg daily. Patient denies any chest pain or shortness of breath. Denies any burning with urination. Discussed the importance with the patient to follow-up closely with GI service in the outpatient setting to help prevent recurrent hospitalizations 12/08/2018 patient complaining of chest pressure this morning. Now resolved. No further episodes of vomiting. Does report some lower abdominal pain. Reports having regular stools in the colostomy. Denies any burning with urination. Did have a low-grade temp of 99.1 EKG and troponin have been ordered. 12/09/2018 patient complaining of one episode of vomiting this morning and dizziness. Orthostatics were checked and negative. EKG from yesterday shows sinus rhythm with PACs and a right bundle branch block. Troponin was negative. Patient has had no further episodes of chest pain. Reports having regular stools through her colostomy. Patient reports that she doesn't feel ready for discharge 12/10/2018 patient still complaining of abdominal distention and abdominal pain. Patient denies any chest pain or shortness breath, no cough. Denies any nausea or vomiting. Reports having bowel movements. Denies any difficulty urinating. Patient's blood pressures are stable. Objective - Vital Signs Vital signs: Vital Signs Temp 99 F 12/11/18 05:00 Pulse 83 12/11/18 05:00 Resp 16 12/11/18 05:00 BP 118/68 12/11/18 05:00 Pulse Ox 97 12/11/18 05:00 Intake & Output 12/10/18 12/11/18 12/11/18 18:59 06:59 18:59 Intake Total 250 Balance 250 Intake: Oral 250 Other: Voiding Method Toilet Toilet Toilet - Exam Head normocephalic Neck supple Lungs clear to auscultation bilaterally no wheezing or crackles Heart regular rate and rhythm S1-S2, no rub or gallop Abdomen is soft distended positive bowel sounds Extremities +2 pitting edema bilaterally Neuro alert and orientated to 3 - Labs CBC & Chem 7: 12/09/18 07:02 12/09/18 07:02 Labs: Abnormal Lab Results - Last 24 Hours (Table) 12/10/18 12/10/18 12/11/18 Range/Units 17:32 21:07 11:00 POC Glucose (mg/dL) 106 H 194 H 121 H (75-99) mg/dL Microbiology - Last 24 Hours (Table) 12/04/18 18:25 Blood Culture - Final Blood No Growth after 144 hours Assessment and Plan Plan: 1. Abdominal pain with abdominal distention and ascites. Patient status post paracentesis with 3.8 L removed. Patient's been cleared by GI service for discharge. GI service increase Aldactone to 50 mg daily 2. History of hepatocellular carcinoma status post chemoembolization 2012, 2015 and 2017. Patient seen by oncology 3. Recurrent abdominal ascites requiring previous paracentesis 4. History of diverticulitis with bowel perforation and ileostomy placement 5. Pancytopenia due to known liver cancer. Secondary to chronic liver cirrhosis 6. Chronic anemia secondary to liver cirrhosis and malignancy. Check iron studies. Hemoglobin 9.6 7. Insulin-dependent diabetes mellitus with A1c of 7.1. Continue home meds. Add sliding scale coverage. 8. Elevated liver enzymes chronic due to known liver malignancy 9. Coagulopathy secondary to patient's liver disease. Continue to monitor PT/ INR. 10. History of nonalcoholic liver cirrhosis 11. Iron deficiency anemia: Total iron 15. Start ferrous sulfate 325 mg twice a day. Hemoglobin up to 9.5 12. Chest pressure: Resolved. Troponin negative. EKG sinus rhythm with PACs and right bundle branch block 13. Dizziness and vomiting this morning. Orthostatics were checked and negative. We'll continue to monitor Plan Encouraged patient to increase activity. Consult physical therapy Consult social work regarding home environment and recurrent hospital admissions Plan for repeat ultrasound on Wednesday to assess if there is need for repeat paracentesis. GI prophylaxis Protonix and DVT prophylaxis SCDs
[2018-12-11] MEDS: MAGNESIUM OXIDE 400 MG TAB PO SCH (13:01)
[2018-12-11] MEDS: MORPHINE SULFATE IR 15 MG TABLET PO PRN ×2 (16:12→22:08)
--- NOTE | 2018-12-11 16:18 | P.PN ---
Subjective Progress Note Date: 12/11/18 73-year-old female, patient of Dr. Barnard. She has a known past medical history of liver cancer and follows with oncology services outpatient. She has a medical history of liver cirrhosis, diverticulitis, anemia and diabetes mellitus. Patient presents to the emergency room with increasing abdominal pain and distention. Patient had recently been hospitalized and discharged on December 02 from [facility] and at that time had undergone a paracentesis with 3.5 L removed. Patient reports that her spironolactone had been decreased from 100 mg daily to 25 mg daily. oncology has been placed on consult. Paracentesis has been ordered. Fluids will be hep-locked. Patient's blood pressures on the lower side her losartan and metoprolol are currently on hold. Patient denies any chest pain, fever or chills or sweats, nausea or vomiting. Does report that her stools are looser through her ileostomy. Stool for C. diff ordered. 12/06/2018 patient still complaining of abdominal distention and abdominal pain. Patient seen by oncology services. They are recommending due to patient' s recurrent abdominal ascites that she has outpatient paracentesis as needed. We will also consult GI service due to patient's liver cirrhosis and abdominal ascites. Patient denies any chest pain or shortness breath. Denies any nausea or vomiting. Reports having bowel movements. Denies any difficulty urinating. Patient's blood pressures are stable the losartan and metoprolol are on hold due to lower blood pressures yesterday. 12/07/2018 patient had paracentesis completed yesterday she had 3.8 L removed. Patient reports she is still not feeling very well still having some lower abdominal comfort discomfort. Did have an episode of vomiting this morning. She does have Zofran on board. GI service increased her Aldactone from 25-50 mg daily. Patient denies any chest pain or shortness of breath. Denies any burning with urination. Discussed the importance with the patient to follow-up closely with GI service in the outpatient setting to help prevent recurrent hospitalizations 12/08/2018 patient complaining of chest pressure this morning. Now resolved. No further episodes of vomiting. Does report some lower abdominal pain. Reports having regular stools in the colostomy. Denies any burning with urination. Did have a low-grade temp of 99.1 EKG and troponin have been ordered. 12/09/2018 patient complaining of one episode of vomiting this morning and dizziness. Orthostatics were checked and negative. EKG from yesterday shows sinus rhythm with PACs and a right bundle branch block. Troponin was negative. Patient has had no further episodes of chest pain. Reports having regular stools through her colostomy. Patient reports that she doesn't feel ready for discharge 12/10/2018 patient still complaining of abdominal distention and abdominal pain. Patient denies any chest pain or shortness breath, no cough. Denies any nausea or vomiting. Reports having bowel movements. Denies any difficulty urinating. Patient's blood pressures are stable. On 12/11/2018 patient was seen and examined on the medical floor she is alert and oriented 3 in mild distress due to pain in the lower abdomen otherwise she denies any complaints there is no fever or chills no headache or dizziness no chest pain no shortness of breath no cough no nausea or vomiting no diarrhea and no urinary symptoms Objective - Vital Signs Vital signs: Vital Signs Temp 98.5 F 12/11/18 12:30 Pulse 81 12/11/18 12:30 Resp 16 12/11/18 12:30 BP 99/55 12/11/18 12:30 Pulse Ox 99 12/11/18 12:30 Intake & Output 12/10/18 12/11/18 12/11/18 18:59 06:59 18:59 Intake Total 250 1200 Balance 250 1200 Intake: Oral 250 1200 Other: Voiding Method Toilet Toilet Toilet # Voids 1 # Bowel Movements 1 - Exam Head normocephalic Neck supple Lungs clear to auscultation bilaterally no wheezing or crackles Heart regular rate and rhythm S1-S2, no rub or gallop Abdomen is soft distended positive bowel sounds Extremities +2 pitting edema bilaterally Neuro alert and orientated to 3 - Labs CBC & Chem 7: 12/09/18 07:02 12/09/18 07:02 Labs: Abnormal Lab Results - Last 24 Hours (Table) 12/10/18 12/10/18 12/11/18 Range/Units 17:32 21:07 11:00 POC Glucose (mg/dL) 106 H 194 H 121 H (75-99) mg/dL Microbiology - Last 24 Hours (Table) 12/04/18 18:25 Blood Culture - Final Blood No Growth after 144 hours Assessment and Plan Plan: 1. Abdominal pain with abdominal distention and ascites. Patient status post paracentesis with 3.8 L removed. Patient's been cleared by GI service for discharge. GI service increase Aldactone to 50 mg daily 2. History of hepatocellular carcinoma status post chemoembolization 2012, 2015 and 2018. Patient seen by oncology 3. Recurrent abdominal ascites requiring previous paracentesis 4. History of diverticulitis with bowel perforation and ileostomy placement 5. Pancytopenia due to known liver cancer. Secondary to chronic liver cirrhosis 6. Chronic anemia secondary to liver cirrhosis and malignancy. Check iron studies. Hemoglobin 9.6 7. Insulin-dependent diabetes mellitus with A1c of 7.1. Continue home meds. Add sliding scale coverage. 8. Elevated liver enzymes chronic due to known liver malignancy 9. Coagulopathy secondary to patient's liver disease. Continue to monitor PT/ INR. 10. History of nonalcoholic liver cirrhosis 11. Iron deficiency anemia: Total iron 15. Start ferrous sulfate 325 mg twice a day. Hemoglobin up to 9.5 12. Chest pressure: Resolved. Troponin negative. EKG sinus rhythm with PACs and right bundle branch block 13. Dizziness and vomiting this morning. Orthostatics were checked and negative. We'll continue to monitor Plan Recheck abdominal ultrasound in a.m. tomorrow to assess if patient needs repeat paracentesis Encouraged patient to increase activity. Consult physical therapy Consult social work regarding home environment and recurrent hospital admissions Plan for repeat ultrasound on Wednesday to assess if there is need for repeat paracentesis. GI prophylaxis Protonix and DVT prophylaxis SCDs
[2018-12-11 17:14] LABS: Glucose,Whole Blood 209 mg/dL (75-99)
[2018-12-11 19:56] LABS: Glucose,Whole Blood 305 mg/dL (75-99)
[2018-12-12] MEDS: CLOTRIMAZOLE TROCHE 10 MG TROCHE PO SCH ×6 (00:03→23:42)
[2018-12-12] MEDS: HYDROmorphone 0.5 MG/0.5 ML SYRINGE IVP PRN ×3 (01:07→19:27)
[2018-12-12] MEDS: MORPHINE SULFATE ER 15 MG TABLET PO SCH ×3 (05:58→22:50)
[2018-12-12 07:01] LABS: Glucose,Whole Blood 101 mg/dL (75-99)
[2018-12-12 07:46] LABS: Anisocytosis Slight; Basophils % (A) 0 %; Eosinophils # (A) 0.2 k/uL (0-0.7); Eosinophils % (A) 6 %; HCT 29.9 % (34.0-46.0); HGB 9.4 gm/dL (11.4-16.0); Hypochromasia Marked; Lymphocytes % (A) 26 %; MCH 30.3 pg (25.0-35.0); MCHC 31.4 g/dL (31.0-37.0); MCV 96.4 fL (80.0-100.0); Macrocytosis Slight; Mean Platelet Volume 8.4; Monocytes # (A) 0.3 k/uL (0-1.0); Monocytes % (A) 9 %; Neutrophils % (A) 54 %; WBC 3.7 k/uL (3.8-10.6)
[2018-12-12 07:51] LABS: Platelet Count 88 k/uL (150-450)
[2018-12-12 07:52] LABS: INR 1.6 (<1.2); Prothrombin Time 16.2 sec (9.0-12.0)
[2018-12-12] MEDS: INSULIN ASPART 100 UNIT/ML 1 ML 10 ML VIAL SQ SCH ×4 (07:53→22:44)
[2018-12-12 07:58] LABS: Albumin 2.4 g/dL (3.5-5.0); Calcium 8.1 mg/dL (8.4-10.2); Potassium 4.8 mmol/L (3.5-5.1); Total Bilirubin 1.5 mg/dL (0.2-1.3); Total Protein 5.8 g/dL (6.3-8.2)
[2018-12-12] MEDS: CHOLESTYRAMINE (WITH SUGAR) 4 GM PACKET PO SCH ×3 (08:11→17:59)
[2018-12-12] MEDS: INSULIN REGULAR 100 UNIT/ML VIAL SQ SCH ×3 (08:11→18:00)
[2018-12-12] MEDS: DICYCLOMINE 10 MG CAP PO SCH ×3 (08:12→22:51)
[2018-12-12] MEDS: PANTOPRAZOLE 40 MG TABLET PO SCH ×2 (08:12→18:01)
[2018-12-12] MEDS: FERROUS SULFATE 325 MG TAB PO SCH ×2 (08:13→22:50)
[2018-12-12] MEDS: FUROSEMIDE 40 MG TAB PO SCH (08:13)
[2018-12-12] MEDS: INSULIN NPH 300 UNIT/3 ML VIAL SQ SCH ×2 (08:14→22:50)
[2018-12-12] MEDS: PREGABALIN 25 MG CAP PO SCH ×3 (08:15→22:51)
[2018-12-12] MEDS: SPIRONOLACTONE 25 MG TAB PO SCH (08:15)
[2018-12-12] MEDS: SUCRALFATE 1 GM TAB PO SCH ×4 (08:16→22:51)
--- NOTE | 2018-12-12 08:22 | US ---
EXAMINATION TYPE: US abdomen limited DATE OF EXAM: 12/12/2018 COMPARISON: NONE CLINICAL HISTORY: ascites. Moderate ascites. IMPRESSION: Ascites as noted.
[2018-12-12] MEDS: MORPHINE SULFATE IR 15 MG TABLET PO PRN ×2 (08:25→18:01)
[2018-12-12 10:55] LABS: Glucose,Whole Blood 117 mg/dL (75-99)
[2018-12-12] MEDS: MAGNESIUM OXIDE 400 MG TAB PO SCH (13:01)
--- NOTE | 2018-12-12 14:06 | P.PN ---
Subjective Progress Note Date: 12/12/18 73-year-old female, patient of Dr. Barnard. She has a known past medical history of liver cancer and follows with oncology services outpatient. She has a medical history of liver cirrhosis, diverticulitis, anemia and diabetes mellitus. Patient presents to the emergency room with increasing abdominal pain and distention. Patient had recently been hospitalized and discharged on December 02 from [facility] and at that time had undergone a paracentesis with 3.5 L removed. Patient reports that her spironolactone had been decreased from 100 mg daily to 25 mg daily. oncology has been placed on consult. Paracentesis has been ordered. Fluids will be hep-locked. Patient's blood pressures on the lower side her losartan and metoprolol are currently on hold. Patient denies any chest pain, fever or chills or sweats, nausea or vomiting. Does report that her stools are looser through her ileostomy. Stool for C. diff ordered. 12/06/2018 patient still complaining of abdominal distention and abdominal pain. Patient seen by oncology services. They are recommending due to patient' s recurrent abdominal ascites that she has outpatient paracentesis as needed. We will also consult GI service due to patient's liver cirrhosis and abdominal ascites. Patient denies any chest pain or shortness breath. Denies any nausea or vomiting. Reports having bowel movements. Denies any difficulty urinating. Patient's blood pressures are stable the losartan and metoprolol are on hold due to lower blood pressures yesterday. 12/07/2018 patient had paracentesis completed yesterday she had 3.8 L removed. Patient reports she is still not feeling very well still having some lower abdominal comfort discomfort. Did have an episode of vomiting this morning. She does have Zofran on board. GI service increased her Aldactone from 25-50 mg daily. Patient denies any chest pain or shortness of breath. Denies any burning with urination. Discussed the importance with the patient to follow-up closely with GI service in the outpatient setting to help prevent recurrent hospitalizations 12/08/2018 patient complaining of chest pressure this morning. Now resolved. No further episodes of vomiting. Does report some lower abdominal pain. Reports having regular stools in the colostomy. Denies any burning with urination. Did have a low-grade temp of 99.1 EKG and troponin have been ordered. 12/09/2018 patient complaining of one episode of vomiting this morning and dizziness. Orthostatics were checked and negative. EKG from yesterday shows sinus rhythm with PACs and a right bundle branch block. Troponin was negative. Patient has had no further episodes of chest pain. Reports having regular stools through her colostomy. Patient reports that she doesn't feel ready for discharge 12/10/2018 patient still complaining of abdominal distention and abdominal pain. Patient denies any chest pain or shortness breath, no cough. Denies any nausea or vomiting. Reports having bowel movements. Denies any difficulty urinating. Patient's blood pressures are stable. On 12/11/2018 patient was seen and examined on the medical floor she is alert and oriented 3 in mild distress due to pain in the lower abdomen otherwise she denies any complaints there is no fever or chills no headache or dizziness no chest pain no shortness of breath no cough no nausea or vomiting no diarrhea and no urinary symptoms On 12/04/2018 patient is alert and oriented 3. Patient had ultrasound of abdomen completed. This time patient is complaining of some abdominal discomfort. Patient denies chest pain or shortness of breath. Patient denies nausea vomiting or diarrhea. Patient denies any urinary burning or frequency Objective - Vital Signs Vital signs: Vital Signs Temp 98.6 F 12/12/18 11:39 Pulse 70 12/12/18 11:39 Resp 20 12/12/18 11:39 BP 105/53 12/12/18 11:39 Pulse Ox 98 12/12/18 11:39 Intake & Output 12/11/18 12/12/18 12/12/18 18:59 06:59 18:59 Intake Total 1200 590 Balance 1200 590 Intake: Oral 1200 590 Other: Voiding Method Toilet Toilet Toilet # Voids 1 1 # Bowel Movements 1 1 - Exam Head normocephalic Neck supple Lungs clear to auscultation bilaterally no wheezing or crackles Heart regular rate and rhythm S1-S2, no rub or gallop Abdomen is soft distended positive bowel sounds Extremities +2 pitting edema bilaterally Neuro alert and orientated to 3 - Labs CBC & Chem 7: 12/12/18 07:31 12/12/18 07:31 Labs: Abnormal Lab Results - Last 24 Hours (Table) 12/11/18 12/11/18 12/12/18 Range/Units 17:12 19:55 06:59 WBC (3.8-10.6) k/uL RBC (3.80-5.40) m/uL Hgb (11.4-16.0) gm/dL Hct (34.0-46.0) % RDW (11.5-15.5) % Plt Count (150-450) k/uL PT (9.0-12.0) sec INR (<1.2) Sodium (137-145) mmol/L Chloride (98-107) mmol/L Carbon Dioxide (22-30) mmol/L Glucose (74-99) mg/dL POC Glucose (mg/dL) 209 H 305 H 101 H (75-99) mg/dL Calcium (8.4-10.2) mg/dL Total Bilirubin (0.2-1.3) mg/dL AST (14-36) U/L Alkaline Phosphatase (38-126) U/L Ammonia (<30) umol/L Total Protein (6.3-8.2) g/dL Albumin (3.5-5.0) g/dL 12/12/18 12/12/18 12/12/18 Range/Units 07:31 07:31 07:31 WBC 3.7 L (3.8-10.6) k/uL RBC 3.10 L (3.80-5.40) m/uL Hgb 9.4 L (11.4-16.0) gm/dL Hct 29.9 L (34.0-46.0) % RDW 18.0 H (11.5-15.5) % Plt Count 88 L (150-450) k/uL PT 16.2 H (9.0-12.0) sec INR 1.6 H (<1.2) Sodium 136 L (137-145) mmol/L Chloride 112 H (98-107) mmol/L Carbon Dioxide 20 L (22-30) mmol/L Glucose 102 H (74-99) mg/dL POC Glucose (mg/dL) (75-99) mg/dL Calcium 8.1 L (8.4-10.2) mg/dL Total Bilirubin 1.5 H (0.2-1.3) mg/dL AST 40 H (14-36) U/L Alkaline Phosphatase 204 H (38-126) U/L Ammonia (<30) umol/L Total Protein 5.8 L (6.3-8.2) g/dL Albumin 2.4 L (3.5-5.0) g/dL 12/12/18 12/12/18 Range/Units 07:31 10:53 WBC (3.8-10.6) k/uL RBC (3.80-5.40) m/uL Hgb (11.4-16.0) gm/dL Hct (34.0-46.0) % RDW (11.5-15.5) % Plt Count (150-450) k/uL PT (9.0-12.0) sec INR (<1.2) Sodium (137-145) mmol/L Chloride (98-107) mmol/L Carbon Dioxide (22-30) mmol/L Glucose (74-99) mg/dL POC Glucose (mg/dL) 117 H (75-99) mg/dL Calcium (8.4-10.2) mg/dL Total Bilirubin (0.2-1.3) mg/dL AST (14-36) U/L Alkaline Phosphatase (38-126) U/L Ammonia 65 H (<30) umol/L Total Protein (6.3-8.2) g/dL Albumin (3.5-5.0) g/dL Assessment and Plan Assessment: 1. Abdominal pain with abdominal distention and ascites. Patient status post paracentesis with 3.8 L removed. Patient's been cleared by GI service for discharge. GI service increase Aldactone to 50 mg daily. Repeat abdominal ultrasound completed showing moderate ascites 2. History of hepatocellular carcinoma status post chemoembolization 2012, 2015 and 2018. Patient seen by oncology 3. Recurrent abdominal ascites requiring previous paracentesis 4. History of diverticulitis with bowel perforation and ileostomy placement 5. Pancytopenia due to known liver cancer. Secondary to chronic liver cirrhosis 6. Chronic anemia secondary to liver cirrhosis and malignancy. Check iron studies. Hemoglobin 9.6 7. Insulin-dependent diabetes mellitus with A1c of 7.1. Continue home meds. Add sliding scale coverage. 8. Elevated liver enzymes chronic due to known liver malignancy 9. Coagulopathy secondary to patient's liver disease. Continue to monitor PT/ INR. 10. History of nonalcoholic liver cirrhosis 11. Iron deficiency anemia: Total iron 15. Start ferrous sulfate 325 mg twice a day. Hemoglobin up to 9.5 12. Chest pressure: Resolved. Troponin negative. EKG sinus rhythm with PACs and right bundle branch block 13. Dizziness and vomiting this morning. Orthostatics were checked and negative. We'll continue to monitor GI prophylaxis Protonix and DVT prophylaxis SCDs I performed an examination of the patient and discussed their management with the Nurse Practitioner. I have reviewed the Nurse Practitioner's notes and agree with the documented findings and plan of care
[2018-12-12] MEDS: clonazePAM 0.5 MG TAB PO SCH (14:29)
--- NOTE | 2018-12-12 16:53 | P.PN ---
Subjective Progress Note Date: 12/12/18 Principal diagnosis: Intractable pain, HCC Pt seen in f/u. She cont to have pain in the epigastric area, she describes a "pulling" sensation when she stands up, she had a US to evaluate for ascites and possible paracentesis. Ostomy output is stable per pt, no blood or mucus Objective - Vital Signs Vital signs: Vital Signs Temp 98.6 F 12/12/18 11:39 Pulse 70 12/12/18 11:39 Resp 20 12/12/18 11:39 BP 105/53 12/12/18 11:39 Pulse Ox 98 12/12/18 11:39 Intake & Output 12/11/18 12/12/18 12/12/18 18:59 06:59 18:59 Intake Total 1200 590 Balance 1200 590 Intake: Oral 1200 590 Other: Voiding Method Toilet Toilet Toilet # Voids 1 1 # Bowel Movements 1 1 - Constitutional General appearance: Present: cooperative, no acute distress, obese - EENT Eyes: Present: anicteric sclerae, EOMI - Respiratory Details: respirations even and unlabored - Gastrointestinal Localized gastrointestinal: tender: epigastric periumbilical - Integumentary Integumentary: Present: normal - Neurologic Neurologic: Present: CNII-XII intact - Musculoskeletal Musculoskeletal: Present: strength equal bilaterally - Psychiatric Psychiatric: Present: A&O x's 3, appropriate affect, intact judgment & insight - Labs CBC & Chem 7: 12/12/18 07:31 12/12/18 07:31 Labs: Abnormal Lab Results - Last 24 Hours (Table) 12/11/18 12/11/18 12/12/18 Range/Units 17:12 19:55 06:59 WBC (3.8-10.6) k/uL RBC (3.80-5.40) m/uL Hgb (11.4-16.0) gm/dL Hct (34.0-46.0) % RDW (11.5-15.5) % Plt Count (150-450) k/uL PT (9.0-12.0) sec INR (<1.2) Sodium (137-145) mmol/L Chloride (98-107) mmol/L Carbon Dioxide (22-30) mmol/L Glucose (74-99) mg/dL POC Glucose (mg/dL) 209 H 305 H 101 H (75-99) mg/dL Calcium (8.4-10.2) mg/dL Total Bilirubin (0.2-1.3) mg/dL AST (14-36) U/L Alkaline Phosphatase (38-126) U/L Ammonia (<30) umol/L Total Protein (6.3-8.2) g/dL Albumin (3.5-5.0) g/dL 12/12/18 12/12/18 12/12/18 Range/Units 07:31 07:31 07:31 WBC 3.7 L (3.8-10.6) k/uL RBC 3.10 L (3.80-5.40) m/uL Hgb 9.4 L (11.4-16.0) gm/dL Hct 29.9 L (34.0-46.0) % RDW 18.0 H (11.5-15.5) % Plt Count 88 L (150-450) k/uL PT 16.2 H (9.0-12.0) sec INR 1.6 H (<1.2) Sodium 136 L (137-145) mmol/L Chloride 112 H (98-107) mmol/L Carbon Dioxide 20 L (22-30) mmol/L Glucose 102 H (74-99) mg/dL POC Glucose (mg/dL) (75-99) mg/dL Calcium 8.1 L (8.4-10.2) mg/dL Total Bilirubin 1.5 H (0.2-1.3) mg/dL AST 40 H (14-36) U/L Alkaline Phosphatase 204 H (38-126) U/L Ammonia (<30) umol/L Total Protein 5.8 L (6.3-8.2) g/dL Albumin 2.4 L (3.5-5.0) g/dL 12/12/18 12/12/18 Range/Units 07:31 10:53 WBC (3.8-10.6) k/uL RBC (3.80-5.40) m/uL Hgb (11.4-16.0) gm/dL Hct (34.0-46.0) % RDW (11.5-15.5) % Plt Count (150-450) k/uL PT (9.0-12.0) sec INR (<1.2) Sodium (137-145) mmol/L Chloride (98-107) mmol/L Carbon Dioxide (22-30) mmol/L Glucose (74-99) mg/dL POC Glucose (mg/dL) 117 H (75-99) mg/dL Calcium (8.4-10.2) mg/dL Total Bilirubin (0.2-1.3) mg/dL AST (14-36) U/L Alkaline Phosphatase (38-126) U/L Ammonia 65 H (<30) umol/L Total Protein (6.3-8.2) g/dL Albumin (3.5-5.0) g/dL Assessment and Plan (1) Chronic abdominal pain Narrative/Plan: This pt recurring c/o and reason for hospitalization. Imaging, exam, and work up re: HCC do not correlate that HCC is the cause for her pain. No work up has been able to identify an underlying cause. Pain medications have not proven to be effective, she has been seen by Pain Mgmt services last visit. Recommendation is to send pt to the surgeon who did her ostomy for possible exp lap. On discharge chart review and [facility] there is a discord between pain meds ordered , Rx turned in and reported on [facility]. Will f/u to see what is going on with her pain meds. Current Visit: Yes Status: Chronic Priority: High Code(s): R10.9 - UNSPECIFIED ABDOMINAL PAIN; G89.29 - OTHER CHRONIC PAIN SNOMED Code(s): 508183439 (2) Ascites Narrative/Plan: US performed, possible paracentesis. Send for cytology, C&S, call count and albumin Current Visit: Yes Status: Chronic Priority: Medium Code(s): R18.8 - OTHER ASCITES SNOMED Code(s): 920863218 (3) Liver cancer Narrative/Plan: AFP was less then 2 on last visit, imaging does not describe an enlarged liver or large disease burden. Pt has missed 5 appts in the office for follow up. As far as my understanding is of her disease there was not a plan to start any systemic treatment at this time just to establish with Dr. Yadav and follow up. We will provide pt with 1 more appt. If she does not show then it will be left up to her to contact the office for an appt. Current Visit: Yes Status: Chronic Priority: Low Code(s): C22.9 - MALIG NEOPLASM OF LIVER, NOT SPECIFIED PRIMARY OR SEC SNOMED Code(s): 26249733
[2018-12-12 17:08] LABS: Glucose,Whole Blood 135 mg/dL (75-99)
[2018-12-12 19:51] LABS: Glucose,Whole Blood 147 mg/dL (75-99)
[2018-12-13] MEDS: MORPHINE SULFATE ER 15 MG TABLET PO SCH ×3 (04:56→20:58)
[2018-12-13] MEDS: CLOTRIMAZOLE TROCHE 10 MG TROCHE PO SCH ×5 (06:32→23:52)
[2018-12-13 06:57] LABS: Glucose,Whole Blood 136 mg/dL (75-99)
[2018-12-13 08:23] LABS: Anisocytosis Slight; Basophils % (A) 1 %; Eosinophils # (A) 0.2 k/uL (0-0.7); Eosinophils % (A) 7 %; HCT 27.8 % (34.0-46.0); HGB 8.5 gm/dL (11.4-16.0); Hypochromasia Moderate; Lymphocytes # (A) 0.8 k/uL (1.0-4.8); Lymphocytes % (A) 25 %; MCH 29.6 pg (25.0-35.0); MCHC 30.6 g/dL (31.0-37.0); MCV 96.7 fL (80.0-100.0); Macrocytosis Slight; Mean Platelet Volume 7.9; Monocytes # (A) 0.3 k/uL (0-1.0); Monocytes % (A) 8 %; Neutrophils # (A) 1.8 k/uL (1.3-7.7); Neutrophils % (A) 56 %; RBC 2.87 m/uL (3.80-5.40); RDW 18.3 % (11.5-15.5); WBC 3.3 k/uL (3.8-10.6)
[2018-12-13] MEDS: PREGABALIN 25 MG CAP PO SCH ×3 (08:24→20:58)
[2018-12-13] MEDS: clonazePAM 0.5 MG TAB PO SCH (08:24)
[2018-12-13] MEDS: FUROSEMIDE 40 MG TAB PO SCH (08:24)
[2018-12-13] MEDS: SPIRONOLACTONE 25 MG TAB PO SCH (08:24)
[2018-12-13] MEDS: FERROUS SULFATE 325 MG TAB PO SCH ×2 (08:24→20:58)
[2018-12-13 08:25] LABS: Platelet Count 84 k/uL (150-450)
[2018-12-13] MEDS: CHOLESTYRAMINE (WITH SUGAR) 4 GM PACKET PO SCH ×3 (08:29→17:48)
[2018-12-13] MEDS: MAGNESIUM OXIDE 400 MG TAB PO SCH (08:29)
[2018-12-13] MEDS: INSULIN REGULAR 100 UNIT/ML VIAL SQ SCH ×3 (08:30→17:39)
[2018-12-13] MEDS: SUCRALFATE 1 GM TAB PO SCH ×4 (08:30→20:57)
[2018-12-13] MEDS: INSULIN ASPART 100 UNIT/ML 1 ML 10 ML VIAL SQ SCH ×4 (08:30→20:59)
[2018-12-13] MEDS: PANTOPRAZOLE 40 MG TABLET PO SCH ×2 (08:30→17:48)
[2018-12-13] MEDS: INSULIN NPH 300 UNIT/3 ML VIAL SQ SCH ×2 (08:31→20:59)
[2018-12-13] MEDS: DICYCLOMINE 10 MG CAP PO SCH ×3 (08:31→20:57)
[2018-12-13 08:57] LABS: Albumin 2.2 g/dL (3.5-5.0); Potassium 4.5 mmol/L (3.5-5.1); Total Bilirubin 1.3 mg/dL (0.2-1.3); Total Protein 5.4 g/dL (6.3-8.2)
[2018-12-13 09:23] LABS: INR 1.5 (<1.2); Prothrombin Time 14.7 sec (9.0-12.0)
[2018-12-13] MEDS: HYDROmorphone 0.5 MG/0.5 ML SYRINGE IVP PRN ×2 (10:31→21:53)
[2018-12-13 11:52] LABS: Glucose,Whole Blood 136 mg/dL (75-99)
--- NOTE | 2018-12-13 13:20 | P.PN ---
Subjective Progress Note Date: 12/13/18 73-year-old female, patient of Dr. Barnard. She has a known past medical history of liver cancer and follows with oncology services outpatient. She has a medical history of liver cirrhosis, diverticulitis, anemia and diabetes mellitus. Patient presents to the emergency room with increasing abdominal pain and distention. Patient had recently been hospitalized and discharged on December 02 from [facility] and at that time had undergone a paracentesis with 3.5 L removed. Patient reports that her spironolactone had been decreased from 100 mg daily to 25 mg daily. oncology has been placed on consult. Paracentesis has been ordered. Fluids will be hep-locked. Patient's blood pressures on the lower side her losartan and metoprolol are currently on hold. Patient denies any chest pain, fever or chills or sweats, nausea or vomiting. Does report that her stools are looser through her ileostomy. Stool for C. diff ordered. 12/06/2018 patient still complaining of abdominal distention and abdominal pain. Patient seen by oncology services. They are recommending due to patient' s recurrent abdominal ascites that she has outpatient paracentesis as needed. We will also consult GI service due to patient's liver cirrhosis and abdominal ascites. Patient denies any chest pain or shortness breath. Denies any nausea or vomiting. Reports having bowel movements. Denies any difficulty urinating. Patient's blood pressures are stable the losartan and metoprolol are on hold due to lower blood pressures yesterday. 12/07/2018 patient had paracentesis completed yesterday she had 3.8 L removed. Patient reports she is still not feeling very well still having some lower abdominal comfort discomfort. Did have an episode of vomiting this morning. She does have Zofran on board. GI service increased her Aldactone from 25-50 mg daily. Patient denies any chest pain or shortness of breath. Denies any burning with urination. Discussed the importance with the patient to follow-up closely with GI service in the outpatient setting to help prevent recurrent hospitalizations 12/08/2018 patient complaining of chest pressure this morning. Now resolved. No further episodes of vomiting. Does report some lower abdominal pain. Reports having regular stools in the colostomy. Denies any burning with urination. Did have a low-grade temp of 99.1 EKG and troponin have been ordered. 12/09/2018 patient complaining of one episode of vomiting this morning and dizziness. Orthostatics were checked and negative. EKG from yesterday shows sinus rhythm with PACs and a right bundle branch block. Troponin was negative. Patient has had no further episodes of chest pain. Reports having regular stools through her colostomy. Patient reports that she doesn't feel ready for discharge 12/10/2018 patient still complaining of abdominal distention and abdominal pain. Patient denies any chest pain or shortness breath, no cough. Denies any nausea or vomiting. Reports having bowel movements. Denies any difficulty urinating. Patient's blood pressures are stable. On 12/11/2018 patient was seen and examined on the medical floor she is alert and oriented 3 in mild distress due to pain in the lower abdomen otherwise she denies any complaints there is no fever or chills no headache or dizziness no chest pain no shortness of breath no cough no nausea or vomiting no diarrhea and no urinary symptoms On 12/12/2018 patient is alert and oriented 3. Patient had ultrasound of abdomen completed. This time patient is complaining of some abdominal discomfort. Patient denies chest pain or shortness of breath. Patient denies nausea vomiting or diarrhea. Patient denies any urinary burning or frequency On 12/13/2018 patient is alert and oriented 3. GI services have been reconsulted for possible paracentesis. Patient is alert and oriented. Dilyazmin has been DC'd. Patient is maintained on home pain medication. Patient denies chest pain or shortness breath. Patient denies nausea vomiting and diarrhea. Patient denies any urinary burning or frequency Objective - Vital Signs Vital signs: Vital Signs Temp 98.4 F 12/13/18 12:00 Pulse 69 12/13/18 12:00 Resp 18 12/13/18 12:00 BP 111/63 12/13/18 12:00 Pulse Ox 99 12/13/18 12:00 Intake & Output 12/12/18 12/13/18 12/13/18 18:59 06:59 18:59 Intake Total 590 Balance 590 Weight 107.048 kg Intake: Oral 590 Other: Voiding Method Toilet Toilet Toilet # Voids 3 2 # Bowel Movements 2 - Exam Head normocephalic Neck supple Lungs clear to auscultation bilaterally no wheezing or crackles Heart regular rate and rhythm S1-S2, no rub or gallop Abdomen is soft distended positive bowel sounds Extremities +2 pitting edema bilaterally Neuro alert and orientated to 3 - Labs CBC & Chem 7: 12/13/18 07:33 12/13/18 07:33 Labs: Abnormal Lab Results - Last 24 Hours (Table) 12/12/18 12/12/18 12/13/18 Range/Units 17:06 19:49 06:55 WBC (3.8-10.6) k/uL RBC (3.80-5.40) m/uL Hgb (11.4-16.0) gm/dL Hct (34.0-46.0) % MCHC (31.0-37.0) g/dL RDW (11.5-15.5) % Plt Count (150-450) k/uL Lymphocytes # (1.0-4.8) k/uL PT (9.0-12.0) sec INR (<1.2) Sodium (137-145) mmol/L Chloride (98-107) mmol/L Carbon Dioxide (22-30) mmol/L Glucose (74-99) mg/dL POC Glucose (mg/dL) 135 H 147 H 136 H (75-99) mg/dL Calcium (8.4-10.2) mg/dL Alkaline Phosphatase (38-126) U/L Total Protein (6.3-8.2) g/dL Albumin (3.5-5.0) g/dL 12/13/18 12/13/18 12/13/18 Range/Units 07:33 07:33 08:54 WBC 3.3 L (3.8-10.6) k/uL RBC 2.87 L (3.80-5.40) m/uL Hgb 8.5 L (11.4-16.0) gm/dL Hct 27.8 L (34.0-46.0) % MCHC 30.6 L (31.0-37.0) g/dL RDW 18.3 H (11.5-15.5) % Plt Count 84 L (150-450) k/uL Lymphocytes # 0.8 L (1.0-4.8) k/uL PT 14.7 H (9.0-12.0) sec INR 1.5 H (<1.2) Sodium 134 L (137-145) mmol/L Chloride 112 H (98-107) mmol/L Carbon Dioxide 20 L (22-30) mmol/L Glucose 134 H (74-99) mg/dL POC Glucose (mg/dL) (75-99) mg/dL Calcium 8.0 L (8.4-10.2) mg/dL Alkaline Phosphatase 197 H (38-126) U/L Total Protein 5.4 L (6.3-8.2) g/dL Albumin 2.2 L (3.5-5.0) g/dL 12/13/18 Range/Units 11:49 WBC (3.8-10.6) k/uL RBC (3.80-5.40) m/uL Hgb (11.4-16.0) gm/dL Hct (34.0-46.0) % MCHC (31.0-37.0) g/dL RDW (11.5-15.5) % Plt Count (150-450) k/uL Lymphocytes # (1.0-4.8) k/uL PT (9.0-12.0) sec INR (<1.2) Sodium (137-145) mmol/L Chloride (98-107) mmol/L Carbon Dioxide (22-30) mmol/L Glucose (74-99) mg/dL POC Glucose (mg/dL) 136 H (75-99) mg/dL Calcium (8.4-10.2) mg/dL Alkaline Phosphatase (38-126) U/L Total Protein (6.3-8.2) g/dL Albumin (3.5-5.0) g/dL Assessment and Plan Assessment: 1. Abdominal pain with abdominal distention and ascites. Patient status post paracentesis with 3.8 L removed. Patient's been cleared by GI service for discharge. GI service increase Aldactone to 50 mg daily. Repeat abdominal ultrasound completed showing moderate ascites. GI services have been reconsulted 2. History of hepatocellular carcinoma status post chemoembolization 2012, 2016 and 2018. Patient seen by oncology 3. Recurrent abdominal ascites requiring previous paracentesis 4. History of diverticulitis with bowel perforation and ileostomy placement 5. Pancytopenia due to known liver cancer. Secondary to chronic liver cirrhosis 6. Chronic anemia secondary to liver cirrhosis and malignancy. Check iron studies. Hemoglobin 9.6 7. Insulin-dependent diabetes mellitus with A1c of 7.1. Continue home meds. Add sliding scale coverage. 8. Elevated liver enzymes chronic due to known liver malignancy 9. Coagulopathy secondary to patient's liver disease. Continue to monitor PT/ INR. 10. History of nonalcoholic liver cirrhosis 11. Iron deficiency anemia: Total iron 15. Start ferrous sulfate 325 mg twice a day. Hemoglobin up to 9.5 12. Chest pressure: Resolved. Troponin negative. EKG sinus rhythm with PACs and right bundle branch block 13. Dizziness and vomiting this morning. Orthostatics were checked and negative. We'll continue to monitor GI prophylaxis Protonix and DVT prophylaxis SCDs I performed an examination of the patient and discussed their management with the Nurse Practitioner. I have reviewed the Nurse Practitioner's notes and agree with the documented findings and plan of care
[2018-12-13] MEDS: MORPHINE SULFATE IR 15 MG TABLET PO PRN ×2 (16:31→23:27)
[2018-12-13 17:22] LABS: Glucose,Whole Blood 87 mg/dL (75-99)
--- NOTE | 2018-12-13 19:54 | P.PN ---
Subjective Progress Note Date: 12/13/18 Principal diagnosis: Intractable pain, HCC Patient seen today in follow-up. Patient has the same complaint of standing up and sensation of pulling in the abdomen. Patient continues to deny any relief from any of the medications that she's been being given. Patient is eating and drinking well, she states her ostomy output is stable Objective - Vital Signs Vital signs: Vital Signs Temp 98.4 F 12/13/18 12:00 Pulse 69 12/13/18 12:00 Resp 18 12/13/18 12:00 BP 111/63 12/13/18 12:00 Pulse Ox 99 12/13/18 12:00 Intake & Output 12/13/18 12/13/18 12/14/18 06:59 18:59 06:59 Intake Total 590 Balance 590 Weight 107.048 kg Intake: Oral 590 Other: Voiding Method Toilet Toilet # Voids 2 3 # Bowel Movements 2 - Constitutional General appearance: Present: cooperative, no acute distress, obese - EENT Eyes: Present: anicteric sclerae, EOMI - Respiratory Details: respirations even and unlabored - Integumentary Integumentary: Present: pale - Neurologic Neurologic: Present: CNII-XII intact - Musculoskeletal Musculoskeletal: Present: generalized weakness - Psychiatric Psychiatric: Present: A&O x's 3, appropriate affect, intact judgment & insight - Labs CBC & Chem 7: 12/13/18 07:33 12/13/18 07:33 Labs: Abnormal Lab Results - Last 24 Hours (Table) 12/12/18 12/13/18 12/13/18 Range/Units 19:49 06:55 07:33 WBC 3.3 L (3.8-10.6) k/uL RBC 2.87 L (3.80-5.40) m/uL Hgb 8.5 L (11.4-16.0) gm/dL Hct 27.8 L (34.0-46.0) % MCHC 30.6 L (31.0-37.0) g/dL RDW 18.3 H (11.5-15.5) % Plt Count 84 L (150-450) k/uL Lymphocytes # 0.8 L (1.0-4.8) k/uL PT (9.0-12.0) sec INR (<1.2) Sodium (137-145) mmol/L Chloride (98-107) mmol/L Carbon Dioxide (22-30) mmol/L Glucose (74-99) mg/dL POC Glucose (mg/dL) 147 H 136 H (75-99) mg/dL Calcium (8.4-10.2) mg/dL Alkaline Phosphatase (38-126) U/L Total Protein (6.3-8.2) g/dL Albumin (3.5-5.0) g/dL 12/13/18 12/13/18 12/13/18 Range/Units 07:33 08:54 11:49 WBC (3.8-10.6) k/uL RBC (3.80-5.40) m/uL Hgb (11.4-16.0) gm/dL Hct (34.0-46.0) % MCHC (31.0-37.0) g/dL RDW (11.5-15.5) % Plt Count (150-450) k/uL Lymphocytes # (1.0-4.8) k/uL PT 14.7 H (9.0-12.0) sec INR 1.5 H (<1.2) Sodium 134 L (137-145) mmol/L Chloride 112 H (98-107) mmol/L Carbon Dioxide 20 L (22-30) mmol/L Glucose 134 H (74-99) mg/dL POC Glucose (mg/dL) 136 H (75-99) mg/dL Calcium 8.0 L (8.4-10.2) mg/dL Alkaline Phosphatase 197 H (38-126) U/L Total Protein 5.4 L (6.3-8.2) g/dL Albumin 2.2 L (3.5-5.0) g/dL Assessment and Plan (1) Chronic abdominal pain Narrative/Plan: MAPS was performed on the patient. The last pain medication prescription filled by patient was 11/05/2018 for extended release morphine so, it is truly unclear if patient is taking her medications at home which, if she is not is why she ends up being hospitalized in pain. Currently, none of the pain medication adjustments have been satisfactory to the patient. Fortunately, We were able to find a partner to the Surgeon who performed patient's ileostomy. We'll be contacting them soon to see if they can offer patient any other options , i.e. exploratory laparotomy Current Visit: Yes Status: Chronic Priority: High Code(s): R10.9 - UNSPECIFIED ABDOMINAL PAIN; G89.29 - OTHER CHRONIC PAIN SNOMED Code(s): 007787510 (2) Ascites Narrative/Plan: US performed, possible paracentesis. Send for cytology, C&S, call count and albumin Current Visit: Yes Status: Chronic Priority: Medium Code(s): R18.8 - OTHER ASCITES SNOMED Code(s): 111809174 (3) Liver cancer Narrative/Plan: No plan to start any systemic treatment at this time. Cont to monitor. Current Visit: Yes Status: Chronic Priority: Low Code(s): C22.9 - MALIG NEOPLASM OF LIVER, NOT SPECIFIED PRIMARY OR SEC SNOMED Code(s): 99819836
[2018-12-13 20:04] LABS: Glucose,Whole Blood 169 mg/dL (75-99)
--- NOTE | 2018-12-13 22:37 | XR ---
EXAMINATION TYPE: XR abdomen 1V DATE OF EXAM: 12/13/2018 COMPARISON: 11/11/2018 HISTORY: Abdominal pain and distention TECHNIQUE: 4 views supine FINDINGS: There are clips apparently from cholecystectomy. There is no sign of intestinal obstruction or pneumoperitoneum. There is abdominal hernia with loops of bowel projected over the proximal right femur. There are no pathologic calcifications over the kidneys. There is osteoarthritis in the hip j oints. There is no evidence of a mass. IMPRESSION: Nonacute abdomen. Abdominal wall hernia. No significant change compared to old exam. Stab le 8 mm calcification over the lateral upper right sacrum.
[2018-12-14] MEDS: MORPHINE SULFATE ER 15 MG TABLET PO SCH ×3 (05:02→19:21)
[2018-12-14] MEDS: CLOTRIMAZOLE TROCHE 10 MG TROCHE PO SCH ×5 (05:24→22:49)
--- NOTE | 2018-12-14 06:42 | P.PN ---
Subjective Progress Note Date: 12/13/18 Principal diagnosis: Metastatic hepatocellular carcinoma, chronic abdominal pain Lying in bed, tolerating diet. Reporting good output from her ostomy. Denying any blood from the ostomy. Reporting that her abdominal pain seems to be worse , diffuse across her abdomen. Objective - Vital Signs Vital signs: Vital Signs Temp 98.0 F 12/14/18 05:00 Pulse 85 12/14/18 05:00 Resp 18 12/14/18 05:00 BP 107/56 12/14/18 05:00 Pulse Ox 97 12/14/18 05:00 Intake & Output 12/13/18 12/13/18 12/14/18 06:59 18:59 06:59 Intake Total 590 350 Balance 590 350 Weight 107.048 kg Intake: Oral 590 350 Other: Voiding Method Toilet Toilet Toilet # Voids 2 3 1 # Bowel Movements 2 1 - Exam On physical examination, patient appears comfortable in no apparent distress. HEAD: Normocephalic, atraumatic. EYES: No scleral icterus. No conjunctival injection. MOUTH: No lesions, tongue midline. NECK: Trachea midline, no gross abnormalities. CHEST: Clear to auscultation with no wheezing or rhonchi appreciated. HEART: Regular rate and rhythm. ABDOMEN: Soft, obese and distended with ostomy on the right side of her abdomen with good output. Bowel sounds are positive. No organomegaly. No guarding or rigidity. EXTREMITIES: Lateral pedal edema. SKIN: No jaundice. NEUROLOGIC: Alert and oriented x3. - Labs CBC & Chem 7: 12/13/18 07:33 12/13/18 07:33 Labs: Abnormal Lab Results - Last 24 Hours (Table) 12/13/18 12/13/18 12/13/18 Range/Units 06:55 07:33 07:33 WBC 3.3 L (3.8-10.6) k/uL RBC 2.87 L (3.80-5.40) m/uL Hgb 8.5 L (11.4-16.0) gm/dL Hct 27.8 L (34.0-46.0) % MCHC 30.6 L (31.0-37.0) g/dL RDW 18.3 H (11.5-15.5) % Plt Count 84 L (150-450) k/uL Lymphocytes # 0.8 L (1.0-4.8) k/uL PT (9.0-12.0) sec INR (<1.2) Sodium 134 L (137-145) mmol/L Chloride 112 H (98-107) mmol/L Carbon Dioxide 20 L (22-30) mmol/L Glucose 134 H (74-99) mg/dL POC Glucose (mg/dL) 136 H (75-99) mg/dL Calcium 8.0 L (8.4-10.2) mg/dL Alkaline Phosphatase 197 H (38-126) U/L Total Protein 5.4 L (6.3-8.2) g/dL Albumin 2.2 L (3.5-5.0) g/dL 12/13/18 12/13/18 12/13/18 Range/Units 08:54 11:49 20:02 WBC (3.8-10.6) k/uL RBC (3.80-5.40) m/uL Hgb (11.4-16.0) gm/dL Hct (34.0-46.0) % MCHC (31.0-37.0) g/dL RDW (11.5-15.5) % Plt Count (150-450) k/uL Lymphocytes # (1.0-4.8) k/uL PT 14.7 H (9.0-12.0) sec INR 1.5 H (<1.2) Sodium (137-145) mmol/L Chloride (98-107) mmol/L Carbon Dioxide (22-30) mmol/L Glucose (74-99) mg/dL POC Glucose (mg/dL) 136 H 169 H (75-99) mg/dL Calcium (8.4-10.2) mg/dL Alkaline Phosphatase (38-126) U/L Total Protein (6.3-8.2) g/dL Albumin (3.5-5.0) g/dL Assessment and Plan (1) Ascites Narrative/Plan: Known history of ascites secondary to underlying liver disease, with 3.8 L removed via paracentesis earlier in the patient's admission. Current Visit: Yes Status: Chronic Priority: Medium Code(s): R18.8 - OTHER ASCITES SNOMED Code(s): 873251423 (2) Chronic abdominal pain Narrative/Plan: Patient with a long-standing history of abdominal pain, likely from malignancy, she has been evaluated by the surgical service in the past. Currently reporting more pain, unclear if this is secondary to abdominal distention and reaccumulation of ascites or worsening of chronic pain from underlying tumor burden. Current Visit: Yes Status: Chronic Priority: High Code(s): R10.9 - UNSPECIFIED ABDOMINAL PAIN; G89.29 - OTHER CHRONIC PAIN SNOMED Code(s): 772685971 (3) Hepatocellular carcinoma Narrative/Plan: Patient has a known history of metastatic HCC. Current Visit: No Status: Chronic Priority: Medium Code(s): C22.0 - LIVER CELL CARCINOMA SNOMED Code(s): 652049696 Plan: Supportive care Okay for diet Will order ultrasound-guided paracentesis X-ray abdomen 1 view ordered to rule out any obstruction, although this is unlikely in the setting of good output from the patient's ostomy Continue 3 times a day Bentyl therapy Continue Protonix therapy Continue pain control Thank you for allowing us to participate in the care of this patient we will follow
[2018-12-14 06:58] LABS: Glucose,Whole Blood 80 mg/dL (75-99)
[2018-12-14] MEDS: INSULIN ASPART 100 UNIT/ML 1 ML 10 ML VIAL SQ SCH ×4 (07:27→21:27)
[2018-12-14] MEDS: INSULIN REGULAR 100 UNIT/ML VIAL SQ SCH ×3 (07:28→17:30)
[2018-12-14 07:58] LABS: Albumin 2.4 g/dL (3.5-5.0); Anisocytosis Slight; Calcium 8.2 mg/dL (8.4-10.2); HCT 29.4 % (34.0-46.0); HGB 8.9 gm/dL (11.4-16.0); Hypochromasia Marked; MCH 29.1 pg (25.0-35.0); MCHC 30.2 g/dL (31.0-37.0); MCV 96.4 fL (80.0-100.0); Macrocytosis Slight; Mean Platelet Volume 8.9; Platelet Count 89 k/uL (150-450); Potassium 4.8 mmol/L (3.5-5.1); RBC 3.05 m/uL (3.80-5.40); Total Bilirubin 1.6 mg/dL (0.2-1.3); Total Protein 5.8 g/dL (6.3-8.2); WBC 3.5 k/uL (3.8-10.6)
[2018-12-14] MEDS: clonazePAM 0.5 MG TAB PO SCH (08:43)
[2018-12-14] MEDS: PANTOPRAZOLE 40 MG TABLET PO SCH ×2 (08:43→17:30)
[2018-12-14] MEDS: FUROSEMIDE 40 MG TAB PO SCH (08:43)
[2018-12-14] MEDS: FERROUS SULFATE 325 MG TAB PO SCH ×2 (08:43→21:27)
[2018-12-14] MEDS: MAGNESIUM OXIDE 400 MG TAB PO SCH (08:43)
[2018-12-14] MEDS: SPIRONOLACTONE 25 MG TAB PO SCH (08:43)
[2018-12-14] MEDS: PREGABALIN 25 MG CAP PO SCH ×3 (08:43→21:28)
[2018-12-14] MEDS: SUCRALFATE 1 GM TAB PO SCH ×4 (08:44→21:28)
[2018-12-14] MEDS: CHOLESTYRAMINE (WITH SUGAR) 4 GM PACKET PO SCH ×3 (08:44→17:30)
[2018-12-14] MEDS: DICYCLOMINE 10 MG CAP PO SCH ×3 (08:44→21:28)
[2018-12-14] MEDS: HYDROmorphone 0.5 MG/0.5 ML SYRINGE IVP PRN ×2 (08:46→21:28)
[2018-12-14 08:50] LABS: Basophils # (M) 0.04 k/uL (0-0.2); Eosinophils # (M) 0.28 k/uL (0-0.7); Lymphocytes # (M) 1.19 k/uL (1.0-4.8); Monocytes # (M) 0.14 k/uL (0-1.0); Neutrophils # (M) 1.86 k/uL (1.3-7.7); Neutrophils % (M) 53 %; Nucleated Red Blood Cells 0 /100 WBC (0-0); Poikilocytosis (M) Present; Total Cells Counted 100
[2018-12-14] MEDS: INSULIN NPH 300 UNIT/3 ML VIAL SQ SCH ×2 (09:04→21:27)
[2018-12-14 11:09] LABS: Glucose,Whole Blood 174 mg/dL (75-99)
--- NOTE | 2018-12-14 12:04 | US ---
EXAMINATION TYPE: US paracentesis abd w/image DATE OF EXAM: 12/14/2018 COMPARISON: NONE HISTORY: Ascites. PROCEDURE: Maximal barrier technique was utilized. The skin overlying a suitable pocket of fluid was localized with ultrasound and the overlying skin was prepped and draped. Ultrasound was utilized with sterile technique. Lidocaine was used for local anesthesia and a skin jenny made with a scalpel. Catheter was advanced under direct ultrasound guidance into a suitable pocket of fluid and approximately 3.3 liter s of turbid yellow fluid were removed. Catheter was withdrawn and hemostasis achieved. There is no immediate complication; the patient is discharged in stable condition. IMPRESSION: STATUS POST ULTRASOUND GUIDED PARACENTESIS FOR PALLIATION OF ASCITES. THIS PROCEDURE WA S PERFORMED BY THE UNDERSIGNED. Specimen obtained for analysis.
[2018-12-14 13:46] LABS: Appearance,BF Cloudy; Color,BF Yellow
[2018-12-14 14:06] LABS: Nucleated Cells, Body Fluid 40 /uL; RBC, Body Fluid 580 /uL
[2018-12-14 14:55] LABS: Mononuclear WBC,Body Fluid 81 %; Polynuclear WBC,Body Fluid 19 %; Total Cells Counted,Body Fluid 100
--- NOTE | 2018-12-14 15:38 | P.PAINCN ---
History of Present Illness - Reason for Consult Consult date: 12/14/18 - History of Present Illness This is 73 years female , with a past medical history significant for liver cancer, liver cirrhosis and ascites, patient admitted to [facility] because of abdominal distention and pancytopenia and anemia, patient continued to have severe right-sided abdominal , she is currently on multiple pain medication MS Contin 15 mg every 8 hours and MSIR 15 mg every 6 hours and Lyrica 25 mg 3 times a day, patient reported that her abdominal pain improved after the paracentesis that was done recently, but she continued to have localized pain at the stoma location (she had a colostomy ), she reported that the pain currently localized in the right lower quadrant at the location of the stoma, not radiated, Past Medical History Past Medical History: Cancer, Diabetes Mellitus, Hypertension, Liver Disease Additional Past Medical History / Comment(s): liver ca- had chemo 10-03-18,past ascities-paracentesis, ulcer(sx),diveticulitis, anx/depression History of Any Multi-Drug Resistant Organisms: MRSA Year Discovered:: 10/23/18 MDRO Source:: MRSA STOOL Past Surgical History: Appendectomy, Bowel Resection, Section, Cholecystectomy, Hysterectomy, Tonsillectomy Additional Past Surgical History / Comment(s): rt rotator cuff repair,carpal tunnel release .liver bx,ilieostomy ,paracentesis, chemo, embolizations of liver tumors Past Anesthesia/Blood Transfusion Reactions: No Reported Reaction Past Psychological History: Anxiety, Depression Additional Psychological History / Comment(s): Reformed smoker. . Retired. No experience. No animal exposures Smoking Status: Former smoker Past Alcohol Use History: None Reported Additional Past Alcohol Use History / Comment(s): started smoking 1962 and quit 1965 Past Drug Use History: None Reported - Past Family History Mother History Unknown: Yes Family Medical History: Congestive Heart Failure (CHF) Medications and Allergies Home Medications Medication Instructions Recorded Confirmed Type Dicyclomine [Bentyl] 10 mg PO TID 10/23/18 12/04/18 History Furosemide [Lasix] 40 mg PO DAILY 10/23/18 12/04/18 History Omeprazole [PriLOSEC] 20 mg PO BID 10/23/18 12/04/18 History Sucralfate [Carafate] 1 gm PO QID 10/23/18 12/04/18 History Insulin NPH Human Isophane 18 unit SQ BID 10/24/18 12/04/18 History [NovoLIN N] Insulin Regular, Human [NovoLIN R] 8 unit SQ AC-TID 10/24/18 12/04/18 History Magnesium 200 mg PO DAILY 10/24/18 12/04/18 History Metoprolol Tartrate 12.5 mg PO DAILY 10/24/18 12/04/18 History Ondansetron [Zofran ODT] 8 mg PO Q8HR 10/24/18 12/04/18 History Nystatin 100,000 Unit/ml Susp 500,000 unit PO QID #12 cup 11/03/18 12/04/18 Rx [Mycostatin Oral Susp] clonazePAM [KlonoPIN] 0.5 mg PO DAILY tab 11/03/18 12/04/18 Rx Cholestyramine (with Sugar) 4 gm PO TID #21 packet 11/04/18 12/04/18 Rx [Questran Packet] Morphine Sulfate ER [Ms Contin] 15 mg PO Q8H #9 tablet 11/22/18 12/04/18 Rx Pregabalin [Lyrica] 25 mg PO TID #9 cap 11/22/18 12/04/18 Rx Losartan [Cozaar] 25 mg PO DAILY #30 tab 12/02/18 12/04/18 Rx Spironolactone [Aldactone] 25 mg PO DAILY #30 tab 12/02/18 12/04/18 Rx Allergies Allergy/AdvReac Type Severity Reaction Status Date / Time GREG Inhibitors Allergy Cough Verified 12/04/18 19:46 amlodipine Allergy Rash/Hives Verified 12/04/18 19:46 oxycodone Allergy Rash/Hives Verified 12/04/18 19:46 Penicillins Allergy Rash/Hives Verified 12/04/18 19:46 hydromorphone [From Dilaudid] AdvReac Unknown Verified 12/04/18 19:46 sodium dodecyclbenzene Allergy Rash/Hives Uncoded 12/04/18 17:44 sulfonate Physical Exam Vitals: Vital Signs Temp Pulse Resp BP BP BP Pulse Ox 12/14/18 12:23 97.8 F 82 20 102/53 98 12/14/18 10:46 84 14 112/60 96 12/14/18 10:35 87 14 112/52 97 12/14/18 10:25 84 14 119/55 99 12/14/18 10:19 80 14 121/58 97 12/14/18 10:08 84 12 111/65 99 12/14/18 10:01 98.1 F 103 H 14 119/66 96 12/14/18 05:00 98.0 F 85 18 107/56 97 12/13/18 21:00 99.0 F 78 22 104/51 97 Intake and Output 12/13/18 12/14/18 12/14/18 22:59 06:59 14:59 Intake Total 350 Balance 350 Intake: Oral 350 Other: Voiding Method Toilet Toilet Toilet # Voids 1 1 2 # Bowel Movements 1 1 Physical Examinations : 1-Constitutiona : Cooperative , not in acute distress . 2-HEENT : nech ; supple , no Lymphadenopathy , normal thyroid size . eyes : no ptosis , no icterus, no photophobia . ENT : normal of hearing , normal oropharynx , no Thrush . 3- Respiratory : Chest clear to auscultations Bilaterally , no wheezing , no Rhonchi . 4- Cardiovascular : regular rate and rhythem , S1 , S2 , no S3 , no S4. 5- Gastrointestinal : abdomen soft , distended no tenderness , bowel sounds positive, right colostomy bag , mild tenderness around the colostomy bag 6- Genitourinary : Defferred . 7- neurologic : Cranial nerve II to XII intact , no focal neurological deffecit . 8-psychatric : alert , oriented X 3 , appropriate affect , intact judgment and insight . 9-Lymphatic : no Lymphadenopathy . 10- musculoskeltal : no motor weakness . Results CBC & Chem 7: 12/14/18 07:22 12/14/18 07:22 Labs: Abnormal Lab Results - Last 24 Hours (Table) 12/13/18 12/14/18 12/14/18 Range/Units 20:02 07:22 07:22 WBC 3.5 L (3.8-10.6) k/uL RBC 3.05 L (3.80-5.40) m/uL Hgb 8.9 L (11.4-16.0) gm/dL Hct 29.4 L (34.0-46.0) % MCHC 30.2 L (31.0-37.0) g/dL RDW 18.0 H (11.5-15.5) % Plt Count 89 L (150-450) k/uL Chloride 112 H (98-107) mmol/L POC Glucose (mg/dL) 169 H (75-99) mg/dL Calcium 8.2 L (8.4-10.2) mg/dL Total Bilirubin 1.6 H (0.2-1.3) mg/dL AST 39 H (14-36) U/L Alkaline Phosphatase 181 H (38-126) U/L Total Protein 5.8 L (6.3-8.2) g/dL Albumin 2.4 L (3.5-5.0) g/dL 12/14/18 Range/Units 11:07 WBC (3.8-10.6) k/uL RBC (3.80-5.40) m/uL Hgb (11.4-16.0) gm/dL Hct (34.0-46.0) % MCHC (31.0-37.0) g/dL RDW (11.5-15.5) % Plt Count (150-450) k/uL Chloride (98-107) mmol/L POC Glucose (mg/dL) 174 H (75-99) mg/dL Calcium (8.4-10.2) mg/dL Total Bilirubin (0.2-1.3) mg/dL AST (14-36) U/L Alkaline Phosphatase (38-126) U/L Total Protein (6.3-8.2) g/dL Albumin (3.5-5.0) g/dL Assessment and Plan Plan: Assessment and plan= upper abdominal pain secondary to liver cancer and ascites , pain improvement after her paracentesis. Pain controlled with current medication Right lower quadrant pain at the colostomy bag location, I recommend evaluation of the stoma by Gen. surgery. Time with Patient: Less than 30 PQRS Measure Charge Sheet PQRS Narrative: Smoking Status Former smoker Do You Want the Pneumonia Vaccine Up to Date Vaccine AT THIS TIME? Blood Pressure [Sitting] 107/56 Blood Pressure [Standing] 136/67 Blood Pressure [Supine] 102/53 Blood Pressure [Left Arm] 112/60 Blood Pressure [Right Arm] 99/55 Blood Pressure 115/61 Pain Intensity [Abdomen] 5 Pain Intensity 0 Pain Scale Used Numeric (1 - 10) Scale Used Numeric (1 - 10) Home Medications: Ambulatory Orders Dicyclomine [Bentyl] 10 mg PO TID 10/23/18 Furosemide [Lasix] 40 mg PO DAILY 10/23/18 Omeprazole [PriLOSEC] 20 mg PO BID 10/23/18 Sucralfate [Carafate] 1 gm PO QID 10/23/18 Insulin NPH Human Isophane [NovoLIN N] 18 unit SQ BID 10/24/18 Insulin Regular, Human [NovoLIN R] 8 unit SQ AC-TID 10/24/18 Magnesium 200 mg PO DAILY 10/24/18 Metoprolol Tartrate 12.5 mg PO DAILY 10/24/18 Ondansetron [Zofran ODT] 8 mg PO Q8HR 10/24/18 Nystatin 100,000 Unit/ml Susp [Mycostatin Oral Susp] 500,000 unit PO QID #12 cup 11/03/18 clonazePAM [KlonoPIN] 0.5 mg PO DAILY tab 11/03/18 Cholestyramine (with Sugar) [Questran Packet] 4 gm PO TID #21 packet 11/04/18 Morphine Sulfate ER [Ms Contin] 15 mg PO Q8H #9 tablet 11/22/18 Pregabalin [Lyrica] 25 mg PO TID #9 cap 11/22/18 Losartan [Cozaar] 25 mg PO DAILY #30 tab 12/02/18 Spironolactone [Aldactone] 25 mg PO DAILY #30 tab 12/02/18
--- NOTE | 2018-12-14 15:57 | P.PN ---
Subjective Progress Note Date: 12/14/18 73-year-old female, patient of Dr. Barnard. She has a known past medical history of liver cancer and follows with oncology services outpatient. She has a medical history of liver cirrhosis, diverticulitis, anemia and diabetes mellitus. Patient presents to the emergency room with increasing abdominal pain and distention. Patient had recently been hospitalized and discharged on December 02 from [facility] and at that time had undergone a paracentesis with 3.5 L removed. Patient reports that her spironolactone had been decreased from 100 mg daily to 25 mg daily. oncology has been placed on consult. Paracentesis has been ordered. Fluids will be hep-locked. Patient's blood pressures on the lower side her losartan and metoprolol are currently on hold. Patient denies any chest pain, fever or chills or sweats, nausea or vomiting. Does report that her stools are looser through her ileostomy. Stool for C. diff ordered. 12/06/2018 patient still complaining of abdominal distention and abdominal pain. Patient seen by oncology services. They are recommending due to patient' s recurrent abdominal ascites that she has outpatient paracentesis as needed. We will also consult GI service due to patient's liver cirrhosis and abdominal ascites. Patient denies any chest pain or shortness breath. Denies any nausea or vomiting. Reports having bowel movements. Denies any difficulty urinating. Patient's blood pressures are stable the losartan and metoprolol are on hold due to lower blood pressures yesterday. 12/07/2018 patient had paracentesis completed yesterday she had 3.8 L removed. Patient reports she is still not feeling very well still having some lower abdominal comfort discomfort. Did have an episode of vomiting this morning. She does have Zofran on board. GI service increased her Aldactone from 25-50 mg daily. Patient denies any chest pain or shortness of breath. Denies any burning with urination. Discussed the importance with the patient to follow-up closely with GI service in the outpatient setting to help prevent recurrent hospitalizations 12/08/2018 patient complaining of chest pressure this morning. Now resolved. No further episodes of vomiting. Does report some lower abdominal pain. Reports having regular stools in the colostomy. Denies any burning with urination. Did have a low-grade temp of 99.1 EKG and troponin have been ordered. 12/09/2018 patient complaining of one episode of vomiting this morning and dizziness. Orthostatics were checked and negative. EKG from yesterday shows sinus rhythm with PACs and a right bundle branch block. Troponin was negative. Patient has had no further episodes of chest pain. Reports having regular stools through her colostomy. Patient reports that she doesn't feel ready for discharge 12/10/2018 patient still complaining of abdominal distention and abdominal pain. Patient denies any chest pain or shortness breath, no cough. Denies any nausea or vomiting. Reports having bowel movements. Denies any difficulty urinating. Patient's blood pressures are stable. On 12/11/2018 patient was seen and examined on the medical floor she is alert and oriented 3 in mild distress due to pain in the lower abdomen otherwise she denies any complaints there is no fever or chills no headache or dizziness no chest pain no shortness of breath no cough no nausea or vomiting no diarrhea and no urinary symptoms On 12/12/2018 patient is alert and oriented 3. Patient had ultrasound of abdomen completed. This time patient is complaining of some abdominal discomfort. Patient denies chest pain or shortness of breath. Patient denies nausea vomiting or diarrhea. Patient denies any urinary burning or frequency On 12/13/2018 patient is alert and oriented 3. GI services have been reconsulted for possible paracentesis. Patient is alert and oriented. Dilaudid has been DC'd. Patient is maintained on home pain medication. Patient denies chest pain or shortness breath. Patient denies nausea vomiting and diarrhea. Patient denies any urinary burning or frequency On 12/14/2017 patient is alert and oriented 3. Patient underwent paracentesis today per GI services with 3.3 L removal. Patient states that pain is slightly improved. But now she is having pain at the stoma site. Patient is having adequate output from stoma site. Patient previously evaluated by general surgery no intervention. Pain services have been consulted due to uncontrolled pain without Dilaudid. At this time patient denies chest pain or shortness of breath. Patient denies nausea vomiting or diarrhea. Patient denies any urinary burning or frequency Objective - Vital Signs Vital signs: Vital Signs Temp 97.8 F 12/14/18 12:23 Pulse 82 12/14/18 12:23 Resp 20 12/14/18 12:23 BP 102/53 12/14/18 12:23 Pulse Ox 98 12/14/18 12:23 Intake & Output 12/13/18 12/14/18 12/14/18 18:59 06:59 18:59 Intake Total 350 Balance 350 Weight 107.048 kg Intake: Oral 350 Other: Voiding Method Toilet Toilet Toilet # Voids 3 1 2 # Bowel Movements 1 - Exam Head normocephalic Neck supple Lungs clear to auscultation bilaterally no wheezing or crackles Heart regular rate and rhythm S1-S2, no rub or gallop Abdomen is soft distended positive bowel sounds Extremities +2 pitting edema bilaterally Neuro alert and orientated to 3 - Labs CBC & Chem 7: 12/14/18 07:22 12/14/18 07:22 Labs: Abnormal Lab Results - Last 24 Hours (Table) 12/13/18 12/14/18 12/14/18 Range/Units 20:02 07:22 07:22 WBC 3.5 L (3.8-10.6) k/uL RBC 3.05 L (3.80-5.40) m/uL Hgb 8.9 L (11.4-16.0) gm/dL Hct 29.4 L (34.0-46.0) % MCHC 30.2 L (31.0-37.0) g/dL RDW 18.0 H (11.5-15.5) % Plt Count 89 L (150-450) k/uL Chloride 112 H (98-107) mmol/L POC Glucose (mg/dL) 169 H (75-99) mg/dL Calcium 8.2 L (8.4-10.2) mg/dL Total Bilirubin 1.6 H (0.2-1.3) mg/dL AST 39 H (14-36) U/L Alkaline Phosphatase 181 H (38-126) U/L Total Protein 5.8 L (6.3-8.2) g/dL Albumin 2.4 L (3.5-5.0) g/dL 12/14/18 Range/Units 11:07 WBC (3.8-10.6) k/uL RBC (3.80-5.40) m/uL Hgb (11.4-16.0) gm/dL Hct (34.0-46.0) % MCHC (31.0-37.0) g/dL RDW (11.5-15.5) % Plt Count (150-450) k/uL Chloride (98-107) mmol/L POC Glucose (mg/dL) 174 H (75-99) mg/dL Calcium (8.4-10.2) mg/dL Total Bilirubin (0.2-1.3) mg/dL AST (14-36) U/L Alkaline Phosphatase (38-126) U/L Total Protein (6.3-8.2) g/dL Albumin (3.5-5.0) g/dL Assessment and Plan Assessment: 1. Abdominal pain due to reoccurring ascites. Patient status post paracentesis with 3.8 L removed. Patient's been cleared by GI service for discharge. GI service increase Aldactone to 50 mg daily. Repeat abdominal ultrasound completed showing moderate ascites. Patient underwent paracentesis at 3.3 L removed today. Due to patient's uncontrolled pain. Pain services have been consulted in 2. History of hepatocellular carcinoma status post chemoembolization 2012, 2016 and 2018. Patient seen by oncology 3. Recurrent abdominal ascites requiring previous paracentesis 4. History of diverticulitis with bowel perforation and ileostomy placement 5. Pancytopenia due to known liver cancer. Secondary to chronic liver cirrhosis 6. Chronic anemia secondary to liver cirrhosis and malignancy. Check iron studies. Hemoglobin 9.6 7. Insulin-dependent diabetes mellitus with A1c of 7.1. Continue home meds. Add sliding scale coverage. 8. Elevated liver enzymes chronic due to known liver malignancy 9. Coagulopathy secondary to patient's liver disease. Continue to monitor PT/ INR. 10. History of nonalcoholic liver cirrhosis 11. Iron deficiency anemia: Total iron 15. Start ferrous sulfate 325 mg twice a day. Hemoglobin up to 9.5 12. Chest pressure: Resolved. Troponin negative. EKG sinus rhythm with PACs and right bundle branch block 13. Dizziness and vomiting this morning. Orthostatics were checked and negative. We'll continue to monitor GI prophylaxis Protonix and DVT prophylaxis SCDs Anticipate discharge in the next 24-48 hours I performed an examination of the patient and discussed their management with the Nurse Practitioner. I have reviewed the Nurse Practitioner's notes and agree with the documented findings and plan of care
[2018-12-14 17:11] LABS: Glucose,Whole Blood 105 mg/dL (75-99)
--- NOTE | 2018-12-14 18:18 | P.PN ---
Subjective Progress Note Date: 12/14/18 Principal diagnosis: Intractable pain, HCC Pt states improvement in epigastric "pulling" after paracentesis, fluid was sent for cytology. She has pain around her stoma, herniation is noted. No other c/o today. Objective - Vital Signs Vital signs: Vital Signs Temp 97.8 F 12/14/18 12:23 Pulse 82 12/14/18 12:23 Resp 20 12/14/18 12:23 BP 102/53 12/14/18 12:23 Pulse Ox 98 12/14/18 12:23 Intake & Output 12/13/18 12/14/18 12/14/18 18:59 06:59 18:59 Intake Total 350 Balance 350 Weight 107.048 kg Intake: Oral 350 Other: Voiding Method Toilet Toilet Toilet # Voids 3 1 2 # Bowel Movements 1 - Constitutional General appearance: Present: cooperative, morbidly obese, no acute distress - EENT Eyes: Present: anicteric sclerae, EOMI ENT: Present: hearing grossly normal - Respiratory Respiratory: bilateral: CTA - Cardiovascular Heart sounds: normal: S1, S2 Abnormal Heart Sounds: Absent: systolic murmur, diastolic murmur, rub, S3 Gallop , S4 Gallop, click, other - Peripheral edema leg Peripheral Edema: bilateral: None - Gastrointestinal Gastrointestinal Comment(s): softball sized hernia lateral to the fight of stoma General gastrointestinal: Present: distended - Neurologic Neurologic: Present: CNII-XII intact - Musculoskeletal Musculoskeletal: Present: generalized weakness - Psychiatric Psychiatric: Present: A&O x's 3, appropriate affect, intact judgment & insight - Labs CBC & Chem 7: 12/14/18 07:22 12/14/18 07:22 Labs: Abnormal Lab Results - Last 24 Hours (Table) 12/13/18 12/14/18 12/14/18 Range/Units 20:02 07:22 07:22 WBC 3.5 L (3.8-10.6) k/uL RBC 3.05 L (3.80-5.40) m/uL Hgb 8.9 L (11.4-16.0) gm/dL Hct 29.4 L (34.0-46.0) % MCHC 30.2 L (31.0-37.0) g/dL RDW 18.0 H (11.5-15.5) % Plt Count 89 L (150-450) k/uL Chloride 112 H (98-107) mmol/L POC Glucose (mg/dL) 169 H (75-99) mg/dL Calcium 8.2 L (8.4-10.2) mg/dL Total Bilirubin 1.6 H (0.2-1.3) mg/dL AST 39 H (14-36) U/L Alkaline Phosphatase 181 H (38-126) U/L Total Protein 5.8 L (6.3-8.2) g/dL Albumin 2.4 L (3.5-5.0) g/dL 12/14/18 12/14/18 Range/Units 11:07 17:09 WBC (3.8-10.6) k/uL RBC (3.80-5.40) m/uL Hgb (11.4-16.0) gm/dL Hct (34.0-46.0) % MCHC (31.0-37.0) g/dL RDW (11.5-15.5) % Plt Count (150-450) k/uL Chloride (98-107) mmol/L POC Glucose (mg/dL) 174 H 105 H (75-99) mg/dL Calcium (8.4-10.2) mg/dL Total Bilirubin (0.2-1.3) mg/dL AST (14-36) U/L Alkaline Phosphatase (38-126) U/L Total Protein (6.3-8.2) g/dL Albumin (3.5-5.0) g/dL Assessment and Plan (1) Chronic abdominal pain Narrative/Plan: Have message to Partner of Surgeon who initially performed ileostomy on patient. Hope to be able to get her an appt to see them for possible hernia repair Current Visit: Yes Status: Chronic Priority: High Code(s): R10.9 - UNSPECIFIED ABDOMINAL PAIN; G89.29 - OTHER CHRONIC PAIN SNOMED Code(s): 171048411 (2) Ascites Narrative/Plan: S/P paracentesis with relief of epigastric pain. Cytology pending, previously fluid has been negative for malignancy Current Visit: Yes Status: Chronic Priority: Medium Code(s): R18.8 - OTHER ASCITES SNOMED Code(s): 157266825 (3) Liver cancer Narrative/Plan: No plan to start any systemic treatment at this time. Cont to monitor. Current Visit: Yes Status: Chronic Priority: Low Code(s): C22.9 - MALIG NEOPLASM OF LIVER, NOT SPECIFIED PRIMARY OR SEC SNOMED Code(s): 17625879
[2018-12-14 20:49] LABS: Glucose,Whole Blood 173 mg/dL (75-99)
[2018-12-14 21:48] VITALS: RESP 18
[2018-12-15] MEDS: MORPHINE SULFATE ER 15 MG TABLET PO SCH (04:11)
[2018-12-15] MEDS: CLOTRIMAZOLE TROCHE 10 MG TROCHE PO SCH (05:40)
[2018-12-15 05:51] VITALS: BP 104/53; PULSE 76; TEMP 98.7
[2018-12-15 07:00] LABS: Glucose,Whole Blood 146 mg/dL (75-99)
[2018-12-15] MEDS: INSULIN ASPART 100 UNIT/ML 1 ML 10 ML VIAL SQ SCH (08:21)
[2018-12-15] MEDS: CHOLESTYRAMINE (WITH SUGAR) 4 GM PACKET PO SCH (08:21)
[2018-12-15] MEDS: FERROUS SULFATE 325 MG TAB PO SCH (08:23)
[2018-12-15] MEDS: SPIRONOLACTONE 25 MG TAB PO SCH (08:23)
[2018-12-15] MEDS: SUCRALFATE 1 GM TAB PO SCH (08:23)
[2018-12-15] MEDS: clonazePAM 0.5 MG TAB PO SCH (08:23)
[2018-12-15] MEDS: FUROSEMIDE 40 MG TAB PO SCH (08:24)
[2018-12-15] MEDS: MAGNESIUM OXIDE 400 MG TAB PO SCH (08:24)
[2018-12-15] MEDS: PREGABALIN 25 MG CAP PO SCH (08:24)
[2018-12-15] MEDS: DICYCLOMINE 10 MG CAP PO SCH (08:24)
[2018-12-15] MEDS: INSULIN REGULAR 100 UNIT/ML VIAL SQ SCH (08:24)
[2018-12-15] MEDS: PANTOPRAZOLE 40 MG TABLET PO SCH (08:24)
[2018-12-15] MEDS: INSULIN NPH 300 UNIT/3 ML VIAL SQ SCH (08:25)
[2018-12-15] MEDS: HYDROmorphone 0.5 MG/0.5 ML SYRINGE IVP PRN (08:32)
[2018-12-15 09:55] LABS: Anisocytosis Slight; Basophils % (A) 1 %; Eosinophils # (A) 0.2 k/uL (0-0.7); Eosinophils % (A) 6 %; HGB 9.5 gm/dL (11.4-16.0); Hypochromasia Marked; Lymphocytes # (A) 1.1 k/uL (1.0-4.8); Lymphocytes % (A) 28 %; MCH 29.9 pg (25.0-35.0); MCHC 30.5 g/dL (31.0-37.0); MCV 98.2 fL (80.0-100.0); Macrocytosis Slight; Mean Platelet Volume 8.6; Monocytes # (A) 0.3 k/uL (0-1.0); Monocytes % (A) 8 %; Neutrophils # (A) 2.1 k/uL (1.3-7.7); Neutrophils % (A) 55 %; RBC 3.16 m/uL (3.80-5.40); RDW 18.2 % (11.5-15.5); WBC 3.9 k/uL (3.8-10.6)
[2018-12-15 09:58] LABS: Albumin 2.4 g/dL (3.5-5.0); Calcium 8.1 mg/dL (8.4-10.2); Platelet Count 97 k/uL (150-450); Total Bilirubin 1.6 mg/dL (0.2-1.3); Total Protein 5.7 g/dL (6.3-8.2)
--- NOTE | 2018-12-15 10:37 | P.DS ---
Providers Date of admission: 12/05/18 15:11 Expected date of discharge: 12/15/18 Attending physician: Artemio Lea Consults: 12/04/18 19:44 Consult Physician Stat Consulting Provider: Severiano Barton Consult Reason/Comments: Paracentesis, Liver CA Do you want consulting provider notified?: Yes, Notify in am Consult Physician Stat Consulting Provider: Cem Estrada Consult Reason/Comments: Liver CA, Ascites Do you want consulting provider notified?: Yes Primary care physician: Gilma Martinez Hospital Course: Discharge Diagnosis 1. Abdominal pain due to reoccurring ascites. Patient status post paracentesis with 3.8 L removed. Patient's been cleared by GI service for discharge. GI service increase Aldactone to 50 mg daily. Repeat abdominal ultrasound completed showing moderate ascites. Patient underwent paracentesis at 3.3 L removed today. Due to patient's uncontrolled pain. No changes to pain meds per pain services. Advised patient to follow-up with general surgery in regards to ostomy pain. Patient was evaluated by general surgery during previous admission no intervention at that time. Discussed with oncology services recommending patient follow-up with surgeon who originally performed surgery at [facility]. Oncology working on arranging appointment for patient 2. History of hepatocellular carcinoma status post chemoembolization 2012, 2016 and 2018. Patient seen by oncology 3. Recurrent abdominal ascites requiring previous paracentesis 4. History of diverticulitis with bowel perforation and ileostomy placement 5. Pancytopenia due to known liver cancer. Secondary to chronic liver cirrhosis 6. Chronic anemia secondary to liver cirrhosis and malignancy. Check iron studies. Hemoglobin 9.6 7. Insulin-dependent diabetes mellitus with A1c of 7.1. Continue home meds. Add sliding scale coverage. 8. Elevated liver enzymes chronic due to known liver malignancy 9. Coagulopathy secondary to patient's liver disease. Continue to monitor PT/ INR. 10. History of nonalcoholic liver cirrhosis 11. Iron deficiency anemia: Total iron 15. Start ferrous sulfate 325 mg twice a day. Hemoglobin up to 9.5 12. Chest pressure: Resolved. Troponin negative. EKG sinus rhythm with PACs and right bundle branch block 13. Dizziness and vomiting this morning. Orthostatics were checked and negative. We'll continue to monitor. Resolved Hospital course 73-year-old female, patient of Dr. Barnard. She has a known past medical history of liver cancer and follows with oncology services outpatient. She has a medical history of liver cirrhosis, diverticulitis, anemia and diabetes mellitus. Patient presents to the emergency room with increasing abdominal pain and distention. Patient had recently been hospitalized and discharged on December 02 from [facility] and at that time had undergone a paracentesis with 3.5 L removed. Patient reports that her spironolactone had been decreased from 100 mg daily to 25 mg daily. oncology has been placed on consult. Paracentesis has been ordered. Fluids will be hep-locked. Patient's blood pressures on the lower side her losartan and metoprolol are currently on hold. Patient denies any chest pain, fever or chills or sweats, nausea or vomiting. Does report that her stools are looser through her ileostomy. Stool for C. diff ordered. 12/06/2018 patient still complaining of abdominal distention and abdominal pain. Patient seen by oncology services. They are recommending due to patient' s recurrent abdominal ascites that she has outpatient paracentesis as needed. We will also consult GI service due to patient's liver cirrhosis and abdominal ascites. Patient denies any chest pain or shortness breath. Denies any nausea or vomiting. Reports having bowel movements. Denies any difficulty urinating. Patient's blood pressures are stable the losartan and metoprolol are on hold due to lower blood pressures yesterday. 12/07/2018 patient had paracentesis completed yesterday she had 3.8 L removed. Patient reports she is still not feeling very well still having some lower abdominal comfort discomfort. Did have an episode of vomiting this morning. She does have Zofran on board. GI service increased her Aldactone from 25-50 mg daily. Patient denies any chest pain or shortness of breath. Denies any burning with urination. Discussed the importance with the patient to follow-up closely with GI service in the outpatient setting to help prevent recurrent hospitalizations 12/08/2018 patient complaining of chest pressure this morning. Now resolved. No further episodes of vomiting. Does report some lower abdominal pain. Reports having regular stools in the colostomy. Denies any burning with urination. Did have a low-grade temp of 99.1 EKG and troponin have been ordered. 12/09/2018 patient complaining of one episode of vomiting this morning and dizziness. Orthostatics were checked and negative. EKG from yesterday shows sinus rhythm with PACs and a right bundle branch block. Troponin was negative. Patient has had no further episodes of chest pain. Reports having regular stools through her colostomy. Patient reports that she doesn't feel ready for discharge 12/10/2018 patient still complaining of abdominal distention and abdominal pain. Patient denies any chest pain or shortness breath, no cough. Denies any nausea or vomiting. Reports having bowel movements. Denies any difficulty urinating. Patient's blood pressures are stable. On 12/11/2018 patient was seen and examined on the medical floor she is alert and oriented 3 in mild distress due to pain in the lower abdomen otherwise she denies any complaints there is no fever or chills no headache or dizziness no chest pain no shortness of breath no cough no nausea or vomiting no diarrhea and no urinary symptoms On 12/12/2018 patient is alert and oriented 3. Patient had ultrasound of abdomen completed. This time patient is complaining of some abdominal discomfort. Patient denies chest pain or shortness of breath. Patient denies nausea vomiting or diarrhea. Patient denies any urinary burning or frequency On 12/13/2018 patient is alert and oriented 3. GI services have been reconsulted for possible paracentesis. Patient is alert and oriented. Dilaudid has been DC'd. Patient is maintained on home pain medication. Patient denies chest pain or shortness breath. Patient denies nausea vomiting and diarrhea. Patient denies any urinary burning or frequency On 12/14/2017 patient is alert and oriented 3. Patient underwent paracentesis today per GI services with 3.3 L removal. Patient states that pain is slightly improved. But now she is having pain at the stoma site. Patient is having adequate output from stoma site. Patient previously evaluated by general surgery no intervention. Pain services have been consulted due to uncontrolled pain without Dilaudid. At this time patient denies chest pain or shortness of breath. Patient denies nausea vomiting or diarrhea. Patient denies any urinary burning or frequency On 12/15/2017 patient is alert and oriented 3. Patient reports that she feels ready to go home. Pain is improved. Discussed with oncology services. Discussed with patient the importance of following up with appointment with oncology services for further plan of care. Also discussed that patient to follow-up with original surgeon at [facility] for ostomy evaluation. Patient is agreeable at this time. Pain meds per oncology. This time patient denies nausea vomiting or diarrhea. Patient denies chest pain or shortness of breath. Patient denies any urinary burning or frequency I performed an examination of the patient and discussed their management with the Nurse Practitioner. I have reviewed the Nurse Practitioner's notes and agree with the documented findings and plan of care Patient Condition at Discharge: Stable Plan - Discharge Summary New Discharge Prescriptions: No Action Sucralfate [Carafate] 1 gm PO QID Omeprazole [PriLOSEC] 20 mg PO BID Furosemide [Lasix] 40 mg PO DAILY Dicyclomine [Bentyl] 10 mg PO TID Ondansetron [Zofran ODT] 8 mg PO Q8HR Magnesium 200 mg PO DAILY Metoprolol Tartrate 12.5 mg PO DAILY Insulin Regular, Human [NovoLIN R] 8 unit SQ AC-TID Insulin NPH Human Isophane [NovoLIN N] 18 unit SQ BID clonazePAM [KlonoPIN] 0.5 mg PO DAILY tab Nystatin 100,000 Unit/ml Susp [Mycostatin Oral Susp] 500,000 unit PO QID #12 cup Cholestyramine (with Sugar) [Questran Packet] 4 gm PO TID #21 packet Morphine Sulfate ER [Ms Contin] 15 mg PO Q8H #9 tablet Pregabalin [Lyrica] 25 mg PO TID #9 cap Losartan [Cozaar] 25 mg PO DAILY #30 tab Spironolactone [Aldactone] 25 mg PO DAILY #30 tab Discharge Medication List Dicyclomine [Bentyl] 10 mg PO TID 10/23/18 [History] Furosemide [Lasix] 40 mg PO DAILY 10/23/18 [History] Omeprazole [PriLOSEC] 20 mg PO BID 10/23/18 [History] Sucralfate [Carafate] 1 gm PO QID 10/23/18 [History] Insulin NPH Human Isophane [NovoLIN N] 18 unit SQ BID 10/24/18 [History] Insulin Regular, Human [NovoLIN R] 8 unit SQ AC-TID 10/24/18 [History] Magnesium 200 mg PO DAILY 10/24/18 [History] Metoprolol Tartrate 12.5 mg PO DAILY 10/24/18 [History] Ondansetron [Zofran ODT] 8 mg PO Q8HR 10/24/18 [History] Nystatin 100,000 Unit/ml Susp [Mycostatin Oral Susp] 500,000 unit PO QID #12 cup 11/03/18 [Rx] clonazePAM [KlonoPIN] 0.5 mg PO DAILY tab 11/03/18 [Rx] Cholestyramine (with Sugar) [Questran Packet] 4 gm PO TID #21 packet 11/04/18 [ Rx] Morphine Sulfate ER [Ms Contin] 15 mg PO Q8H #9 tablet 11/22/18 [Rx] Pregabalin [Lyrica] 25 mg PO TID #9 cap 11/22/18 [Rx] Losartan [Cozaar] 25 mg PO DAILY #30 tab 12/02/18 [Rx] Spironolactone [Aldactone] 25 mg PO DAILY #30 tab 12/02/18 [Rx] Follow up Appointment(s)/Referral(s): Gilma Martinez MD [Primary Care Provider] - 1-2 days Ananth Francois MD [STAFF PHYSICIAN] - 12/30/18 10:15 am
--- NOTE | 2018-12-15 14:51 | P.PN ---
Subjective Progress Note Date: 12/15/18 Principal diagnosis: Intractable pain, HCC, ostomy hernia Pt seen today in f/u, she is sitting at bedside eating a full lunch. She has peristomal pain, persistent. No other c/o. Objective - Vital Signs Vital signs: Vital Signs Temp 98.7 F 12/15/18 05:00 Pulse 76 12/15/18 05:00 Resp 18 12/15/18 05:00 BP 104/53 12/15/18 05:00 Pulse Ox 97 12/15/18 05:00 Intake & Output 12/14/18 12/15/18 12/15/18 18:59 06:59 18:59 Intake Total 1620 Balance 1620 Intake: Oral 1620 Other: Voiding Method Toilet Toilet Toilet # Voids 2 2 # Bowel Movements 2 - Exam A&O x 4, NAD, respirations even and unlabored, independently ambulatory - Constitutional General appearance: Present: cooperative, no acute distress, obese - Labs CBC & Chem 7: 12/15/18 08:39 12/15/18 08:39 Labs: Abnormal Lab Results - Last 24 Hours (Table) 12/14/18 12/14/18 12/15/18 Range/Units 17:09 20:48 06:58 RBC (3.80-5.40) m/uL Hgb (11.4-16.0) gm/dL Hct (34.0-46.0) % MCHC (31.0-37.0) g/dL RDW (11.5-15.5) % Plt Count (150-450) k/uL Sodium (137-145) mmol/L Chloride (98-107) mmol/L Carbon Dioxide (22-30) mmol/L Glucose (74-99) mg/dL POC Glucose (mg/dL) 105 H 173 H 146 H (75-99) mg/dL Calcium (8.4-10.2) mg/dL Total Bilirubin (0.2-1.3) mg/dL AST (14-36) U/L Alkaline Phosphatase (38-126) U/L Total Protein (6.3-8.2) g/dL Albumin (3.5-5.0) g/dL 12/15/18 12/15/18 Range/Units 08:39 08:39 RBC 3.16 L (3.80-5.40) m/uL Hgb 9.5 L (11.4-16.0) gm/dL Hct 31.0 L (34.0-46.0) % MCHC 30.5 L (31.0-37.0) g/dL RDW 18.2 H (11.5-15.5) % Plt Count 97 L (150-450) k/uL Sodium 134 L (137-145) mmol/L Chloride 110 H (98-107) mmol/L Carbon Dioxide 19 L (22-30) mmol/L Glucose 172 H (74-99) mg/dL POC Glucose (mg/dL) (75-99) mg/dL Calcium 8.1 L (8.4-10.2) mg/dL Total Bilirubin 1.6 H (0.2-1.3) mg/dL AST 44 H (14-36) U/L Alkaline Phosphatase 221 H (38-126) U/L Total Protein 5.7 L (6.3-8.2) g/dL Albumin 2.4 L (3.5-5.0) g/dL Microbiology - Last 24 Hours (Table) 12/14/18 10:08 Gram Stain - Preliminary Paracentesis Fluid Body Fluid Culture - Preliminary 12/14/18 10:08 Anaerobic Culture - Preliminary Paracentesis Fluid Assessment and Plan (1) Chronic abdominal pain Status: Chronic Priority: High Code(s): R10.9 - UNSPECIFIED ABDOMINAL PAIN; G89.29 - OTHER CHRONIC PAIN SNOMED Code(s): 082268679 (2) Ascites Narrative/Plan: S/P paracentesis 3.3 L fluid with relief of epigastric discomfort Status: Chronic Priority: Medium Code(s): R18.8 - OTHER ASCITES SNOMED Code(s): 723686359 (3) Liver cancer Narrative/Plan: Limited disease in liver. Ascitis fluid pending Status: Chronic Priority: Low Code(s): C22.9 - MALIG NEOPLASM OF LIVER, NOT SPECIFIED PRIMARY OR SEC SNOMED Code(s): 70313877 Plan: Pt was instructed that we are helping get her a surgical referral to the partner of the surgeon who performed her ileostomy for eval of the pain and hernia. She will be contacted with that appt Pt will contact Dr. Yadav's office for f/u appt. Explained to pt that Dr. Yadav will only be following her HCC for now as systemic treatment is not indicated. She needs to continue to follow with the Doctor that performed chemoembolization as that treatment will continue to be utilized. Pt needs to establish with a PCP and f/u with GI for mgmt of recurrent ascites from liver disease Pt verbalized understanding instructions
== END 2018-12-15 13:05 | disposition home or self-care (01) | DRG 436 ==
LOC: EC 17:38 → 3NMEDONC 20:10 → OBSVTOIN 12-05 15:11 → 3NMEDONC 12-05 19:29
PROVIDERS: ADMIT Internal Medicine; ATTEND Internal Medicine
PROC: 0W9G3ZZ Drainage of Peritoneal Cavity, Percutaneous Approach (ICD-10-PCS; principal; 2018-12-06)
PROC: 0W9G3ZZ Drainage of Peritoneal Cavity, Percutaneous Approach (ICD-10-PCS; 2018-12-14)
DX: C22.0 Liver cell carcinoma (principal); D61.818 Other pancytopenia; D68.9 Coagulation defect, unspecified; K76.6 Portal hypertension; R18.8 Other ascites; D63.0 Anemia in neoplastic disease; E11.9 Type 2 diabetes mellitus without complications; I45.10 Unspecified right bundle-branch block; K74.60 Unspecified cirrhosis of liver; D50.9 Iron deficiency anemia, unspecified; F32.9 Major depressive disorder, single episode, unspecified; F41.9 Anxiety disorder, unspecified; G89.29 Other chronic pain; I10 Essential (primary) hypertension; R07.89 Other chest pain; R42 Dizziness and giddiness; R11.10 Vomiting, unspecified; R60.9 Edema, unspecified; K57.90 Diverticulosis of intestine, part unspecified, without perforation or abscess without bleeding; I49.1 Atrial premature depolarization; Z79.4 Long term (current) use of insulin; Z79.899 Other long term (current) drug therapy; Z79.891 Long term (current) use of opiate analgesic; Z88.5 Allergy status to narcotic agent; Z88.0 Allergy status to penicillin; Z88.8 Allergy status to other drugs, medicaments and biological substances; Z93.3 Colostomy status; Z87.891 Personal history of nicotine dependence; Z90.710 Acquired absence of both cervix and uterus; Z90.49 Acquired absence of other specified parts of digestive tract; Z86.14 Personal history of Methicillin resistant Staphylococcus aureus infection; Z92.21 Personal history of antineoplastic chemotherapy; Z82.49 Family history of ischemic heart disease and other diseases of the circulatory system
CPT/HCPCS: 36415; 49083; 71046; 74018; 76705; 80053; 81003; 82042; 82140; 82728; 83540; 83550; 83605; 84484; 85025; 85610; 85730; 87040; 87070; 87075; 87086; 87205; 88108; 88305; 89050; 93005; 96374; 99285

== ENCOUNTER 2018-12-17 20:09 | Inpatient (IN) | payer MEDICARE ==
--- NOTE | 2018-12-17 21:29 | ED ---
Extremity Problem HPI - General Chief complaint: Extremity Problem,Nontraumatic Stated complaint: edema Time Seen by Provider: 12/17/18 21:18 Source: patient, RN notes reviewed, old records reviewed Mode of arrival: wheelchair Limitations: no limitations - History of Present Illness Initial comments: This is a 73-year-old female the ER for evaluation severe abdominal pain lower extremity edema abdominal swelling and shortness of breath. He does have known history of liver CA, ascites with prior paracentesis. Patient coming in with weight gain and increasing pain and increasing swelling. MD Complaint: extremity pain, extremity swelling -: days(s) (4) Location: bilateral lower extremity History of Same: Yes -: Yes myalgia, Yes arthralgia, Yes associated chest pain Radiation: none Severity scale (1-10): 2 Quality: aching Consistency: constant Improves with: nothing Worsens with: nothing Associated Symptoms: shortness of breath, myalgias, arthralgias - Related Data Home Medications Medication Instructions Recorded Confirmed Dicyclomine [Bentyl] 10 mg PO TID 10/23/18 12/17/18 Furosemide [Lasix] 40 mg PO DAILY 10/23/18 12/17/18 Omeprazole [PriLOSEC] 20 mg PO BID 10/23/18 12/17/18 Sucralfate [Carafate] 1 gm PO QID 10/23/18 12/17/18 Insulin NPH Human Isophane 18 unit SQ BID 10/24/18 12/17/18 [NovoLIN N] Insulin Regular, Human [NovoLIN R] 8 unit SQ AC-TID 10/24/18 12/17/18 Magnesium 200 mg PO DAILY 10/24/18 12/17/18 Metoprolol Tartrate 12.5 mg PO DAILY 10/24/18 12/17/18 Ondansetron [Zofran ODT] 8 mg PO Q8HR 10/24/18 12/17/18 Spironolactone [Aldactone] 50 mg PO DAILY 12/17/18 12/17/18 Previous Rx's Medication Instructions Recorded clonazePAM [KlonoPIN] 0.5 mg PO DAILY tab 11/03/18 Cholestyramine (with Sugar) 4 gm PO TID #21 packet 11/04/18 [Questran Packet] Morphine Sulfate ER [Ms Contin] 15 mg PO Q8H #9 tablet 11/22/18 Pregabalin [Lyrica] 25 mg PO TID #9 cap 11/22/18 Ferrous Sulfate [Iron (65 MG 325 mg PO BID #60 tab 12/15/18 Elemental)] Morphine Sulfate Ir [MSIR] 15 mg PO Q6HR PRN tablet 12/15/18 Allergies Allergy/AdvReac Type Severity Reaction Status Date / Time GREG Inhibitors Allergy Cough Verified 12/17/18 20:37 amlodipine Allergy Rash/Hives Verified 12/17/18 20:37 oxycodone Allergy Rash/Hives Verified 12/17/18 20:37 Penicillins Allergy Rash/Hives Verified 12/17/18 20:37 hydromorphone [From Dilaudid] AdvReac Unknown Verified 12/17/18 20:37 sodium dodecyclbenzene Allergy Rash/Hives Uncoded 12/17/18 20:27 sulfonate Review of Systems ROS Statement: Those systems with pertinent positive or pertinent negative responses have been documented in the HPI. ROS Other: All systems not noted in ROS Statement are negative. Past Medical History Past Medical History: Cancer, Diabetes Mellitus, Hypertension, Liver Disease Additional Past Medical History / Comment(s): liver ca- had chemo 10-03-18,past ascities-paracentesis, ulcer(sx),diveticulitis, anx/depression History of Any Multi-Drug Resistant Organisms: MRSA Date of last positivie culture/infection: 10/23/18 MDRO Source:: MRSA STOOL Past Surgical History: Appendectomy, Bowel Resection, Section, Cholecystectomy, Hysterectomy, Tonsillectomy Additional Past Surgical History / Comment(s): rt rotator cuff repair,carpal tunnel release .liver bx,ilieostomy ,paracentesis, chemo, embolizations of liver tumors Past Anesthesia/Blood Transfusion Reactions: No Reported Reaction Past Psychological History: Anxiety, Depression Smoking Status: Former smoker Past Alcohol Use History: None Reported Past Drug Use History: None Reported - Past Family History Mother History Unknown: Yes Family Medical History: Congestive Heart Failure (CHF) General Exam Limitations: no limitations General appearance: alert, in no apparent distress, in distress Head exam: Present: atraumatic, normocephalic, normal inspection Eye exam: Present: normal appearance, PERRL, EOMI. Absent: scleral icterus, conjunctival injection, periorbital swelling ENT exam: Present: normal exam, mucous membranes moist Neck exam: Present: normal inspection. Absent: tenderness, meningismus, lymphadenopathy Respiratory exam: Present: normal lung sounds bilaterally. Absent: respiratory distress, wheezes, rales, rhonchi, stridor Cardiovascular Exam: Present: regular rate, normal rhythm, normal heart sounds. Absent: systolic murmur, diastolic murmur, rubs, gallop, clicks GI/Abdominal exam: Present: soft, distended, tenderness, normal bowel sounds. Absent: guarding, rebound, rigid Extremities exam: Present: normal inspection, full ROM, pedal edema. Absent: tenderness, joint swelling, calf tenderness Back exam: Present: normal inspection Neurological exam: Present: alert, oriented X3, CN II-XII intact Psychiatric exam: Present: normal affect, normal mood Skin exam: Present: warm, dry, intact, normal color. Absent: rash Course Vital Signs 12/17/18 12/17/18 20:23 22:45 Temperature 98.5 F 98.4 F Pulse Rate 70 72 Respiratory 18 16 Rate Blood Pressure 99/61 100/54 O2 Sat by Pulse 100 99 Oximetry - Reevaluation(s) Reevaluation #1: 12/17/18 23:12 Medical record including multiple recent hospital admissions are reviewed Reevaluation #2: 12/17/18 23:12 Patient has mild improvement in pain currently - Consultations Consultation #1: Spoke with Dr. Lea regarding admission Medical Decision Making - Medical Decision Making 73 female with recurrent ascites and peripheral edema, severe pain coming in for intractable pain as well as significant abdominal edema, shortness of breath and lower extremity edema. Will admit - Lab Data Result diagrams: 12/17/18 21:30 12/17/18 21:30 Lab Results 12/17/18 12/17/18 12/17/18 Range/Units 21:30 21:30 21:30 WBC 4.0 (3.8-10.6) k/uL RBC 3.18 L (3.80-5.40) m/uL Hgb 9.8 L (11.4-16.0) gm/dL Hct 29.5 L (34.0-46.0) % MCV 92.8 D (80.0-100.0) fL MCH 30.9 (25.0-35.0) pg MCHC 33.4 (31.0-37.0) g/dL RDW 18.4 H (11.5-15.5) % Plt Count 100 L (150-450) k/uL Neutrophils % 58 % Lymphocytes % 26 % Monocytes % 9 % Eosinophils % 5 % Basophils % 0 % Neutrophils # 2.3 (1.3-7.7) k/uL Lymphocytes # 1.0 (1.0-4.8) k/uL Monocytes # 0.3 (0-1.0) k/uL Eosinophils # 0.2 (0-0.7) k/uL Basophils # 0.0 (0-0.2) k/uL Hypochromasia Slight Anisocytosis Slight PT (9.0-12.0) sec INR (<1.2) APTT (22.0-30.0) sec Sodium 134 L (137-145) mmol/L Potassium 4.9 (3.5-5.1) mmol/L Chloride 107 (98-107) mmol/L Carbon Dioxide 19 L (22-30) mmol/L Anion Gap 8 mmol/L BUN 17 (7-17) mg/dL Creatinine 1.18 H (0.52-1.04) mg/dL Est GFR (CKD-EPI)AfAm 54 (>60 ml/min/1.73 sqM) Est GFR (CKD-EPI)NonAf 47 (>60 ml/min/1.73 sqM) Glucose 126 H (74-99) mg/dL Calcium 8.1 L (8.4-10.2) mg/dL Phosphorus 4.0 (2.5-4.5) mg/dL Magnesium 1.9 (1.6-2.3) mg/dL Total Bilirubin 1.6 H (0.2-1.3) mg/dL AST 54 H (14-36) U/L ALT 35 (9-52) U/L Alkaline Phosphatase 196 H (38-126) U/L Total Creatine Kinase 370 H (30-135) U/L CK-MB (CK-2) 4.0 H (0.0-2.4) ng/mL CK-MB (CK-2) Rel Index 1.1 Troponin I 0.043 H* (0.000-0.034) ng/mL NT-Pro-B Natriuret Pep pg/mL Total Protein 5.9 L (6.3-8.2) g/dL Albumin 2.4 L (3.5-5.0) g/dL 12/17/18 12/17/18 Range/Units 21:30 21:30 WBC (3.8-10.6) k/uL RBC (3.80-5.40) m/uL Hgb (11.4-16.0) gm/dL Hct (34.0-46.0) % MCV (80.0-100.0) fL MCH (25.0-35.0) pg MCHC (31.0-37.0) g/dL RDW (11.5-15.5) % Plt Count (150-450) k/uL Neutrophils % % Lymphocytes % % Monocytes % % Eosinophils % % Basophils % % Neutrophils # (1.3-7.7) k/uL Lymphocytes # (1.0-4.8) k/uL Monocytes # (0-1.0) k/uL Eosinophils # (0-0.7) k/uL Basophils # (0-0.2) k/uL Hypochromasia Anisocytosis PT 14.8 H (9.0-12.0) sec INR 1.5 H (<1.2) APTT 26.9 (22.0-30.0) sec Sodium (137-145) mmol/L Potassium (3.5-5.1) mmol/L Chloride (98-107) mmol/L Carbon Dioxide (22-30) mmol/L Anion Gap mmol/L BUN (7-17) mg/dL Creatinine (0.52-1.04) mg/dL Est GFR (CKD-EPI)AfAm (>60 ml/min/1.73 sqM) Est GFR (CKD-EPI)NonAf (>60 ml/min/1.73 sqM) Glucose (74-99) mg/dL Calcium (8.4-10.2) mg/dL Phosphorus (2.5-4.5) mg/dL Magnesium (1.6-2.3) mg/dL Total Bilirubin (0.2-1.3) mg/dL AST (14-36) U/L ALT (9-52) U/L Alkaline Phosphatase (38-126) U/L Total Creatine Kinase (30-135) U/L CK-MB (CK-2) (0.0-2.4) ng/mL CK-MB (CK-2) Rel Index Troponin I (0.000-0.034) ng/mL NT-Pro-B Natriuret Pep 418 pg/mL Total Protein (6.3-8.2) g/dL Albumin (3.5-5.0) g/dL - EKG Data -: EKG Interpreted by Me (EKG shows sinus rhythm rate of 71, NV 166, QRS 134, QTC 491) Disposition Clinical Impression: Intractable pain, Ascites, Intractable abdominal pain, History of liver cancer , Peripheral edema, Abdominal pain Disposition: ADMITTED IP TO THIS HOSP Condition: Fair Is patient prescribed a controlled substance at d/c from ED?: No Referrals: Gilma Martinez MD [Primary Care Provider] - 1-2 days
[2018-12-17 21:53] LABS: Anisocytosis Slight; Basophils % (A) 0 %; Eosinophils # (A) 0.2 k/uL (0-0.7); Eosinophils % (A) 5 %; HCT 29.5 % (34.0-46.0); HGB 9.8 gm/dL (11.4-16.0); Hypochromasia Slight; Lymphocytes % (A) 26 %; MCH 30.9 pg (25.0-35.0); MCHC 33.4 g/dL (31.0-37.0); Mean Platelet Volume 7.9; Monocytes # (A) 0.3 k/uL (0-1.0); Monocytes % (A) 9 %; Neutrophils # (A) 2.3 k/uL (1.3-7.7); Neutrophils % (A) 58 %; Platelet Count 100 k/uL (150-450); RBC 3.18 m/uL (3.80-5.40); RDW 18.4 % (11.5-15.5)
[2018-12-17 21:57] LABS: Albumin 2.4 g/dL (3.5-5.0); Calcium 8.1 mg/dL (8.4-10.2); Magnesium 1.9 mg/dL (1.6-2.3); Potassium 4.9 mmol/L (3.5-5.1); Total Bilirubin 1.6 mg/dL (0.2-1.3); Total Protein 5.9 g/dL (6.3-8.2)
[2018-12-17 21:58] LABS: MCV 92.8 fL (80.0-100.0)
[2018-12-17 22:01] LABS: INR 1.5 (<1.2); Partial Thromboplastin Time 26.9 sec (22.0-30.0); Prothrombin Time 14.8 sec (9.0-12.0)
[2018-12-17 22:29] LABS: Troponin I 0.043 ng/mL (0.000-0.034)
[2018-12-17] MEDS ORDERED: MORPHINE SULFATE 4 MG/ML SYRINGE IVP STA (23:13)
[2018-12-18] MEDS: MORPHINE SULFATE 4 MG/ML SYRINGE IVP PRN ×2 (03:29→08:40)
[2018-12-18 06:17] LABS: Glucose,Whole Blood 179 mg/dL (75-99)
[2018-12-18] MEDS: ENOXAPARIN 40 MG/0.4 ML SYRINGE SQ SCH (08:41)
--- NOTE | 2018-12-18 10:25 | P.HPIM ---
History of Present Illness H&P Date: 12/18/18 This is a 73-year-old female patient of Dr. Martinez. Patient presented to the emergency room with complaints of lower extremity and abdominal edema. Patient has had multiple frequent admissions to the hospital for same complaints. Patient did undergo paracentesis last week. Patient does have a known past medical history of primary liver cancer, diabetes mellitus, hypertension, MRSA in her stool, anxiety, depression and nonalcoholic liver cirrhosis. Patient was also found to have a mildly elevated troponin. Cardiology services have been consulted. EKG completed showing normal sinus rhythm, right bundle branch block, minimal voltage criteria for LVH may be normal variant. Oncology and GI services have been consulted. At this time patient denies any chest pain. Patient is complaining of abdominal discomfort. Patient does report that her stoma is working properly. Patient was advised upon last discharge to follow- up with surgeon who originally performed lap nettie with ostomy multiple years ago through [facility]. Patient denies any shortness of breath. Patient denies nausea vomiting or diarrhea. Patient denies any urinary burning or frequency. Review of Systems please refer to HPI otherwise unremarkable Past Medical History Past Medical History: Cancer, Diabetes Mellitus, Hypertension, Liver Disease Additional Past Medical History / Comment(s): liver ca- had chemo 10-03-18,past ascities-paracentesis, ulcer(sx),diveticulitis, anx/depression History of Any Multi-Drug Resistant Organisms: MRSA Date of last positivie culture/infection: 10/23/18 MDRO Source:: MRSA STOOL Past Surgical History: Appendectomy, Bowel Resection, Section, Cholecystectomy, Hysterectomy, Tonsillectomy Additional Past Surgical History / Comment(s): rt rotator cuff repair,carpal tunnel release .liver bx,ilieostomy ,paracentesis, chemo, embolizations of liver tumors Past Anesthesia/Blood Transfusion Reactions: No Reported Reaction Past Psychological History: Anxiety, Depression Additional Psychological History / Comment(s): Reformed smoker. . Retired. No experience. No animal exposures Smoking Status: Former smoker Past Alcohol Use History: None Reported Additional Past Alcohol Use History / Comment(s): started smoking 1962 and quit 1965 Past Drug Use History: None Reported - Past Family History Mother History Unknown: Yes Family Medical History: Congestive Heart Failure (CHF) Medications and Allergies Home Medications Medication Instructions Recorded Confirmed Type Dicyclomine [Bentyl] 10 mg PO TID 10/23/18 12/17/18 History Furosemide [Lasix] 40 mg PO DAILY 10/23/18 12/17/18 History Omeprazole [PriLOSEC] 20 mg PO BID 10/23/18 12/17/18 History Sucralfate [Carafate] 1 gm PO QID 10/23/18 12/17/18 History Insulin NPH Human Isophane 18 unit SQ BID 10/24/18 12/17/18 History [NovoLIN N] Insulin Regular, Human [NovoLIN R] 8 unit SQ AC-TID 10/24/18 12/17/18 History Magnesium 200 mg PO DAILY 10/24/18 12/17/18 History Metoprolol Tartrate 12.5 mg PO DAILY 10/24/18 12/17/18 History Ondansetron [Zofran ODT] 8 mg PO Q8HR 10/24/18 12/17/18 History clonazePAM [KlonoPIN] 0.5 mg PO DAILY tab 11/03/18 12/17/18 Rx Cholestyramine (with Sugar) 4 gm PO TID #21 packet 11/04/18 12/17/18 Rx [Questran Packet] Morphine Sulfate ER [Ms Contin] 15 mg PO Q8H #9 tablet 11/22/18 12/17/18 Rx Pregabalin [Lyrica] 25 mg PO TID #9 cap 11/22/18 12/17/18 Rx Ferrous Sulfate [Iron (65 MG 325 mg PO BID #60 tab 12/15/18 12/17/18 Rx Elemental)] Morphine Sulfate Ir [MSIR] 15 mg PO Q6HR PRN tablet 12/15/18 12/17/18 Rx Spironolactone [Aldactone] 50 mg PO DAILY 12/17/18 12/17/18 History Allergies Allergy/AdvReac Type Severity Reaction Status Date / Time GREG Inhibitors Allergy Cough Verified 12/17/18 20:37 amlodipine Allergy Rash/Hives Verified 12/17/18 20:37 oxycodone Allergy Rash/Hives Verified 12/17/18 20:37 Penicillins Allergy Rash/Hives Verified 12/17/18 20:37 hydromorphone [From Dilaudid] AdvReac Unknown Verified 12/17/18 20:37 sodium dodecyclbenzene Allergy Rash/Hives Uncoded 12/17/18 20:27 sulfonate Physical Exam Vitals: Vital Signs Temp Pulse Pulse Resp BP BP Pulse Ox 12/18/18 08:00 97.1 F L 81 18 107/51 98 12/18/18 04:00 99.3 F 79 17 91/45 98 12/18/18 00:00 69 18 12/17/18 23:53 75 16 105/55 98 12/17/18 23:44 98.8 F 69 18 97/49 100 12/17/18 22:45 98.4 F 72 16 100/54 99 12/17/18 20:23 98.5 F 70 18 99/61 100 Intake and Output 12/17/18 12/18/18 12/18/18 22:59 06:59 14:59 Other: Voiding Method Toilet # Voids 1 # Bowel Movements 1 Weight 109.769 kg 107.3 kg Head normocephalic Neck supple Lungs clear to auscultation bilaterally no wheezing or crackles Heart regular rate and rhythm S1-S2, no rub or gallop Abdomen mildly distended soft abdomen with right lower quadrant ostomy. Brown liquid stool present Extremities +1 nonpitting lower extremity edema Neuro alert and orientated to 3 Results CBC & Chem 7: 12/17/18 21:30 12/17/18 21:30 Labs: Abnormal Lab Results - Last 24 Hours (Table) 12/17/18 12/17/18 12/17/18 Range/Units 21:30 21:30 21:30 RBC 3.18 L (3.80-5.40) m/uL Hgb 9.8 L (11.4-16.0) gm/dL Hct 29.5 L (34.0-46.0) % RDW 18.4 H (11.5-15.5) % Plt Count 100 L (150-450) k/uL PT (9.0-12.0) sec INR (<1.2) Sodium 134 L (137-145) mmol/L Carbon Dioxide 19 L (22-30) mmol/L Creatinine 1.18 H (0.52-1.04) mg/dL Glucose 126 H (74-99) mg/dL POC Glucose (mg/dL) (75-99) mg/dL Calcium 8.1 L (8.4-10.2) mg/dL Total Bilirubin 1.6 H (0.2-1.3) mg/dL AST 54 H (14-36) U/L Alkaline Phosphatase 196 H (38-126) U/L Total Creatine Kinase 370 H (30-135) U/L CK-MB (CK-2) 4.0 H (0.0-2.4) ng/mL Troponin I 0.043 H* (0.000-0.034) ng/mL Total Protein 5.9 L (6.3-8.2) g/dL Albumin 2.4 L (3.5-5.0) g/dL 12/17/18 12/18/18 Range/Units 21:30 06:16 RBC (3.80-5.40) m/uL Hgb (11.4-16.0) gm/dL Hct (34.0-46.0) % RDW (11.5-15.5) % Plt Count (150-450) k/uL PT 14.8 H (9.0-12.0) sec INR 1.5 H (<1.2) Sodium (137-145) mmol/L Carbon Dioxide (22-30) mmol/L Creatinine (0.52-1.04) mg/dL Glucose (74-99) mg/dL POC Glucose (mg/dL) 179 H (75-99) mg/dL Calcium (8.4-10.2) mg/dL Total Bilirubin (0.2-1.3) mg/dL AST (14-36) U/L Alkaline Phosphatase (38-126) U/L Total Creatine Kinase (30-135) U/L CK-MB (CK-2) (0.0-2.4) ng/mL Troponin I (0.000-0.034) ng/mL Total Protein (6.3-8.2) g/dL Albumin (3.5-5.0) g/dL Thrombosis Risk Factor Assmnt - Choose All That Apply Each Factor Represents 1 point: Swollen legs (current) Each Risk Factor Represents 2 Points: Age 61-74 years, Malignancy Thrombosis Risk Factor Assessment Total Risk Factor Score: 5 Thrombosis Risk Factor Assessment Level: High Risk Assessment and Plan Assessment: 1. Abdominal pain due to recurring ascites. GI services have been consulted. During previous admission patient did receive paracentesis. Patient Aldactone also increased per GI services to 50 mg daily. Patient previously evaluated by general surgery due to ostomy pain and no surgical intervention was recommended at that time. Patient advised during last admission that she should follow-up with surgeon who originally performed her surgery. Oncology was working on arranging appointment for patient. 2. Elevated troponin. EKG completed showing normal sinus rhythm, right bundle branch block. Repeat troponins have been ordered cardiology services have been consulted. 3. 3. History of MRSA and patient stool. Patient has completed treatment 4. History of nonalcoholic liver cirrhosis 5. History of pancytopenia due to known liver cancer. Secondary to chronic liver cirrhosis 6. History of diverticulitis with ileostomy placement. Patient reports she does have appointment with [place] surgeon who originally performed surgery. Patient was previously evaluated by our surgical team during previous admission 7. Insulin-dependent diabetes mellitus. Previously hemoglobin A1c 7.1. Home resumed 8. Elevated liver enzymes due to known chronic liver malignancy 9. Iron deficiency anemia. Patient maintained on ferrous sulfate 10. Hypotension. Blood pressures in the 90s. Homans resumed with parameters. We'll continue to monitor closely 11. Coagulopathy secondary to patient's liver disease. Daily PT/INRs have been ordered 12. History of hepatocellular carcinoma status post chemo embolization 2012, 2016 and 2018. Patient seen by oncology DVT prophylaxis Lovenox. GI prophylaxis Protonix Time with Patient: Greater than 30 (Greater than 60% of the total time spent in counseling and coordination of care. I performed an examination of the patient and discussed their management with the Nurse Practitioner. I have reviewed the Nurse Practitioner's notes and agree with the documented findings and plan of care)
[2018-12-18] MEDS: SUCRALFATE 1 GM TAB PO SCH ×3 (10:50→19:59)
[2018-12-18] MEDS: clonazePAM 0.5 MG TAB PO SCH (10:51)
[2018-12-18] MEDS: CHOLESTYRAMINE (WITH SUGAR) 4 GM PACKET PO SCH ×2 (10:51→15:26)
[2018-12-18] MEDS: MORPHINE SULFATE ER 15 MG TABLET PO SCH ×2 (10:51→19:58)
[2018-12-18] MEDS ORDERED: FUROSEMIDE 10 MG/ML 4 ML VIAL IV STA (11:58)
[2018-12-18] MEDS: INSULIN REGULAR 100 UNIT/ML VIAL SQ SCH ×2 (12:01→17:43)
[2018-12-18] MEDS: INSULIN ASPART 100 UNIT/ML 1 ML 10 ML VIAL SQ SCH ×3 (12:02→20:01)
--- NOTE | 2018-12-18 12:13 | P.CRDCN ---
History of Present Illness Consult date: 12/18/18 Requesting physician: Artemio Lea Reason for Consult (text): Elevated troponin Chief complaint: Edema History of present illness: This is a pleasant 73-year-old female patient with past medical history significant for hypertension, liver CA since 2010, frequent paracentesis due to ascites, diabetes mellitus and former nicotine dependence. She was recently admitted with abdominal swelling and underwent paracentesis at that time she had an echocardiogram during that admission revealed mildly impaired LV systolic function with an ejection fraction of 45-50%, basal posterior, basal inferior and basal inferoseptal wall motion hypokinesis, mildly dilated left atrium, moderate aortic valve sclerosis with mild stenosis. At that time she had a normal BNP was felt to have new onset systolic heart failure but was felt to be currently euvolemic at that time she was started on Aldactone. She presented this admission with complaints of weight gain and worsening edema in her abdomen and lower extremities. Denies complaints of shortness of breath, orthopnea or PND. Does complain of some worsening fatigue with walking. Laboratory values on admission showed a hemoglobin of 9.8, INR 1.5, potassium 4.9, BUN 17, creatinine 1.18. Liver S the patient in consultation due to elevated troponin level of 0.043 with subsequent troponin of 0.041. She's had no complaints of chest discomfort. EKG shows sinus rhythm with a right bundle branch block, no change compared to previous. Upon examination, patient is resting comfortably in bed. She does complain of some abdominal discomfort secondary to ascites as well as edema. Past Medical History Past Medical History: Cancer, Diabetes Mellitus, Hypertension, Liver Disease Additional Past Medical History / Comment(s): liver ca- had chemo 10-03-18,past ascities-paracentesis, ulcer(sx),diveticulitis, anx/depression History of Any Multi-Drug Resistant Organisms: MRSA Date of last positivie culture/infection: 10/23/18 MDRO Source:: MRSA STOOL Past Surgical History: Appendectomy, Bowel Resection, Section, Cholecystectomy, Hysterectomy, Tonsillectomy Additional Past Surgical History / Comment(s): rt rotator cuff repair,carpal tunnel release .liver bx,ilieostomy ,paracentesis, chemo, embolizations of liver tumors Past Anesthesia/Blood Transfusion Reactions: No Reported Reaction Past Psychological History: Anxiety, Depression Additional Psychological History / Comment(s): Reformed smoker. . Retired. No experience. No animal exposures Smoking Status: Former smoker Past Alcohol Use History: None Reported Additional Past Alcohol Use History / Comment(s): started smoking 1962 and quit 1965 Past Drug Use History: None Reported - Past Family History Mother History Unknown: Yes Family Medical History: Congestive Heart Failure (CHF) Medications and Allergies Home Medications Medication Instructions Recorded Confirmed Type Dicyclomine [Bentyl] 10 mg PO TID 10/23/18 12/17/18 History Furosemide [Lasix] 40 mg PO DAILY 10/23/18 12/17/18 History Omeprazole [PriLOSEC] 20 mg PO BID 10/23/18 12/17/18 History Sucralfate [Carafate] 1 gm PO QID 10/23/18 12/17/18 History Insulin NPH Human Isophane 18 unit SQ BID 10/24/18 12/17/18 History [NovoLIN N] Insulin Regular, Human [NovoLIN R] 8 unit SQ AC-TID 10/24/18 12/17/18 History Magnesium 200 mg PO DAILY 10/24/18 12/17/18 History Metoprolol Tartrate 12.5 mg PO DAILY 10/24/18 12/17/18 History Ondansetron [Zofran ODT] 8 mg PO Q8HR 10/24/18 12/17/18 History clonazePAM [KlonoPIN] 0.5 mg PO DAILY tab 11/03/18 12/17/18 Rx Cholestyramine (with Sugar) 4 gm PO TID #21 packet 11/04/18 12/17/18 Rx [Questran Packet] Morphine Sulfate ER [Ms Contin] 15 mg PO Q8H #9 tablet 11/22/18 12/17/18 Rx Pregabalin [Lyrica] 25 mg PO TID #9 cap 11/22/18 12/17/18 Rx Ferrous Sulfate [Iron (65 MG 325 mg PO BID #60 tab 12/15/18 12/17/18 Rx Elemental)] Morphine Sulfate Ir [MSIR] 15 mg PO Q6HR PRN tablet 12/15/18 12/17/18 Rx Spironolactone [Aldactone] 50 mg PO DAILY 12/17/18 12/17/18 History Allergies Allergy/AdvReac Type Severity Reaction Status Date / Time GREG Inhibitors Allergy Cough Verified 12/17/18 20:37 amlodipine Allergy Rash/Hives Verified 12/17/18 20:37 oxycodone Allergy Rash/Hives Verified 12/17/18 20:37 Penicillins Allergy Rash/Hives Verified 12/17/18 20:37 hydromorphone [From Dilaudid] AdvReac Unknown Verified 12/17/18 20:37 sodium dodecyclbenzene Allergy Rash/Hives Uncoded 12/17/18 20:27 sulfonate Physical Exam Vitals: Vital Signs Temp Pulse Pulse Resp BP BP Pulse Ox 12/18/18 11:02 97.6 F 77 18 103/55 97 12/18/18 08:00 97.1 F L 81 18 107/51 98 12/18/18 04:00 99.3 F 79 17 91/45 98 12/18/18 00:00 69 18 12/17/18 23:53 75 16 105/55 98 12/17/18 23:44 98.8 F 69 18 97/49 100 12/17/18 22:45 98.4 F 72 16 100/54 99 12/17/18 20:23 98.5 F 70 18 99/61 100 Intake and Output 12/17/18 12/18/18 12/18/18 22:59 06:59 14:59 Other: Voiding Method Toilet # Voids 1 # Bowel Movements 1 Weight 109.769 kg 107.3 kg PHYSICAL EXAMINATION: HEENT: Head is atraumatic, normocephalic. Pupils equal, round. Neck is supple. There is no elevated jugular venous pressure. HEART EXAMINATION: Heart sounds regular, S1 and S2 with a systolic murmur. CHEST EXAMINATION: Lungs are clear to auscultation and precussion. No chest wall tenderness is noted on palpation or with deep breathing. ABDOMEN: Soft, tenderness noted to the upper abdomen. Bowel sounds are heard. No organomegaly noted. EXTREMITIES: 2+ peripheral pulses with 2+ dependent pitting edema to lower extremities. NEUROLOGIC patient is awake, alert and oriented x3. . Results 12/17/18 21:30 12/17/18 21:30 Cardiac Enzymes 12/17/18 12/17/18 12/18/18 Range/Units 21:30 21:30 09:46 AST 54 H (14-36) U/L CK-MB (CK-2) 4.0 H (0.0-2.4) ng/mL Troponin I 0.043 H* 0.041 H* (0.000-0.034) ng/mL Coagulation 12/17/18 Range/Units 21:30 PT 14.8 H (9.0-12.0) sec APTT 26.9 (22.0-30.0) sec CBC 12/17/18 Range/Units 21:30 WBC 4.0 (3.8-10.6) k/uL RBC 3.18 L (3.80-5.40) m/uL Hgb 9.8 L (11.4-16.0) gm/dL Hct 29.5 L (34.0-46.0) % Plt Count 100 L (150-450) k/uL Comprehensive Metabolic Panel 12/17/18 Range/Units 21:30 Sodium 134 L (137-145) mmol/L Potassium 4.9 (3.5-5.1) mmol/L Chloride 107 (98-107) mmol/L Carbon Dioxide 19 L (22-30) mmol/L BUN 17 (7-17) mg/dL Creatinine 1.18 H (0.52-1.04) mg/dL Glucose 126 H (74-99) mg/dL Calcium 8.1 L (8.4-10.2) mg/dL AST 54 H (14-36) U/L ALT 35 (9-52) U/L Alkaline Phosphatase 196 H (38-126) U/L Total Protein 5.9 L (6.3-8.2) g/dL Albumin 2.4 L (3.5-5.0) g/dL Current Medications Generic Name Dose Route Start Last Admin Trade Name Freq PRN Reason Stop Dose Admin Cholestyramine Resin 4 gm 12/18/18 12:30 12/18/18 10:51 Questran PO 4 gm AC-TID JENNY Administration Clonazepam 0.5 mg 12/18/18 10:09 12/18/18 10:51 Klonopin PO 0.5 mg DAILY JENNY Administration Dicyclomine HCl 10 mg 12/18/18 16:00 Bentyl PO TID JENNY Enoxaparin Sodium 40 mg 12/18/18 09:00 12/18/18 08:41 Lovenox SQ 40 mg DAILY JENNY Administration Ferrous Sulfate 325 mg 12/18/18 21:00 Feosol PO BID JENNY Furosemide 40 mg 12/19/18 09:00 Lasix PO DAILY [facility] Insulin Aspart 0 unit 12/18/18 12:30 Novolog SQ ACHS JENNY Protocol Insulin Human NPH 18 unit 12/18/18 21:00 Humulin N SQ BID [facility] Insulin Human Regular 8 unit 12/18/18 12:30 Humulin R SQ AC-TID JENNY Magnesium Oxide 400 mg 12/19/18 09:00 Mag-Ox PO DAILY [facility] Metoprolol Tartrate 12.5 mg 12/19/18 09:00 Lopressor PO DAILY JENNY Morphine Sulfate 15 mg 12/18/18 11:00 12/18/18 10:51 Ms Contin PO 15 mg Q8H JENNY Administration Morphine Sulfate 15 mg 12/18/18 10:09 Msir PO Q6HR PRN Pain Ondansetron HCl 8 mg 12/18/18 16:00 Zofran Odt PO Q8HR [facility] Pantoprazole Sodium 40 mg 12/18/18 17:30 Protonix PO AC-BID [facility] Pregabalin 25 mg 12/18/18 16:00 Lyrica PO TID [facility] Spironolactone 50 mg 12/19/18 09:00 Aldactone PO DAILY [facility] Sucralfate 1 gm 12/18/18 12:30 12/18/18 10:50 Carafate PO 1 gm ACHS JENNY Administration Intake and Output 12/17/18 12/18/18 12/18/18 22:59 06:59 14:59 Other: Voiding Method Toilet # Voids 1 # Bowel Movements 1 Weight 109.769 kg 107.3 kg 12/17/18 21:30 12/17/18 21:30 Assessment and Plan Assessment: #1 recurrent ascites #2 elevated troponin, trend does not appear to be consistent with acute coronary syndrome, awaiting third troponin #3 history of chronic liver cancer #4 cardiomyopathy, unknown whether it is ischemic or nonischemic #5 diabetes mellitus #6 generalized edema within normal NT-proBNP Plan: From cardiology's perspective, patient does not appear to be in acute CHF and troponins not consistent with acute coronary syndrome. We will give the patient some IV Lasix today. Further recommendations to follow. [employer] note has been reviewed, I agree with a documented findings and plan of care. Patient was seen and examined.
[2018-12-18 12:15] LABS: Glucose,Whole Blood 214 mg/dL (75-99)
[2018-12-18] MEDS: PANTOPRAZOLE 40 MG TABLET PO SCH (15:21)
[2018-12-18] MEDS: DICYCLOMINE 10 MG CAP PO SCH ×2 (15:21→19:59)
[2018-12-18] MEDS: MORPHINE SULFATE IR 15 MG TABLET PO PRN (15:21)
[2018-12-18] MEDS: ONDANSETRON ODT 8 MG TAB.RAPDIS PO SCH ×2 (15:26→23:48)
[2018-12-18] MEDS: PREGABALIN 25 MG CAP PO SCH ×2 (15:43→22:00)
[2018-12-18 16:28] LABS: Glucose,Whole Blood 133 mg/dL (75-99)
--- NOTE | 2018-12-18 18:36 | P.CONS ---
History of Present Illness - Reason for Consult Consult date: 12/18/18 Abdominal pain Requesting physician: Artemio Lea - Chief Complaint Lower extremity and abdominal swelling - History of Present Illness 73-year-old female with multiple medical comorbidities including hypertension, hepatocellular carcinoma diagnosed in 2010, diabetes mellitus anxiety, depression and nonalcoholic liver disease who has had multiple recent admissions who presents with complaints of lower extremity and abdominal swelling. The patient reports worsening swelling of her lower extremities and abdomen since discharge on . The patient reports that she has had associated increase in her weight. She reports associated shortness of breath with exertion. On her last admission the patient underwent to ultrasound- guided paracentesis with removal of a ascitic fluid. She was discharged with diuretic therapy including Aldactone 50 mg daily and Lasix 40 mg daily. The patient denies any nausea, vomiting or change in stool output from his ostomy placed years ago. Review of Systems REVIEW OF SYSTEMS: CONSTITUTIONAL: Denies any fevers, chills, but does report aching in association with swelling of her extremities and abdomen. CARDIOVASCULAR: Denies any chest pain, palpitations high or low blood pressures RESPIRATORY: Denies any hemoptysis or cough, but does report shortness of breath with exertion. GENITOURINARY: No dysuria or hematuria. MUSCULOSKELETAL: No weakness reported. SKIN: Denies any new rashes or lesions, jaundice or pallor. PSYCHIATRIC: History of depression and anxiety. NEUROLOGY: Denies headache, denies any new focal deficits. EARS/NOSE/THROAT: No recent hearing change, congestion, nasal discharge or sore throat. EYES: No pain in eyes, discharge or change in vision. GASTROINTESTINAL: As per HPI. Past Medical History Past Medical History: Cancer, Diabetes Mellitus, Hypertension, Liver Disease Additional Past Medical History / Comment(s): liver ca- had chemo 10-03-18,past ascities-paracentesis, ulcer(sx),diveticulitis, anx/depression History of Any Multi-Drug Resistant Organisms: MRSA Year Discovered:: 10/23/18 MDRO Source:: MRSA STOOL Past Surgical History: Appendectomy, Bowel Resection, Section, Cholecystectomy, Hysterectomy, Tonsillectomy Additional Past Surgical History / Comment(s): rt rotator cuff repair,carpal tunnel release .liver bx,ilieostomy ,paracentesis, chemo, embolizations of liver tumors Past Anesthesia/Blood Transfusion Reactions: No Reported Reaction Past Psychological History: Anxiety, Depression Additional Psychological History / Comment(s): Reformed smoker. . Retired. No experience. No animal exposures Smoking Status: Former smoker Past Alcohol Use History: None Reported Additional Past Alcohol Use History / Comment(s): started smoking 1962 and quit 1965 Past Drug Use History: None Reported - Past Family History Mother History Unknown: Yes Family Medical History: Congestive Heart Failure (CHF) Medications and Allergies Home Medications Medication Instructions Recorded Confirmed Type Dicyclomine [Bentyl] 10 mg PO TID 10/23/18 12/17/18 History Furosemide [Lasix] 40 mg PO DAILY 10/23/18 12/17/18 History Omeprazole [PriLOSEC] 20 mg PO BID 10/23/18 12/17/18 History Sucralfate [Carafate] 1 gm PO QID 10/23/18 12/17/18 History Insulin NPH Human Isophane 18 unit SQ BID 10/24/18 12/17/18 History [NovoLIN N] Insulin Regular, Human [NovoLIN R] 8 unit SQ AC-TID 10/24/18 12/17/18 History Magnesium 200 mg PO DAILY 10/24/18 12/17/18 History Metoprolol Tartrate 12.5 mg PO DAILY 10/24/18 12/17/18 History Ondansetron [Zofran ODT] 8 mg PO Q8HR 10/24/18 12/17/18 History clonazePAM [KlonoPIN] 0.5 mg PO DAILY tab 11/03/18 12/17/18 Rx Cholestyramine (with Sugar) 4 gm PO TID #21 packet 11/04/18 12/17/18 Rx [Questran Packet] Morphine Sulfate ER [Ms Contin] 15 mg PO Q8H #9 tablet 11/22/18 12/17/18 Rx Pregabalin [Lyrica] 25 mg PO TID #9 cap 11/22/18 12/17/18 Rx Ferrous Sulfate [Iron (65 MG 325 mg PO BID #60 tab 12/15/18 12/17/18 Rx Elemental)] Morphine Sulfate Ir [MSIR] 15 mg PO Q6HR PRN tablet 12/15/18 12/17/18 Rx Spironolactone [Aldactone] 50 mg PO DAILY 12/17/18 12/17/18 History Allergies Allergy/AdvReac Type Severity Reaction Status Date / Time GREG Inhibitors Allergy Cough Verified 12/17/18 20:37 amlodipine Allergy Rash/Hives Verified 12/17/18 20:37 oxycodone Allergy Rash/Hives Verified 12/17/18 20:37 Penicillins Allergy Rash/Hives Verified 12/17/18 20:37 hydromorphone [From Dilaudid] AdvReac Unknown Verified 12/17/18 20:37 sodium dodecyclbenzene Allergy Rash/Hives Uncoded 12/17/18 20:27 sulfonate Physical Exam Vitals: Vital Signs Temp Pulse Pulse Resp BP BP Pulse Ox 12/18/18 15:27 98.1 F 78 18 99/54 99 12/18/18 11:02 97.6 F 77 18 103/55 97 12/18/18 08:00 97.1 F L 81 18 107/51 98 12/18/18 04:00 99.3 F 79 17 91/45 98 12/18/18 00:00 69 18 12/17/18 23:53 75 16 105/55 98 12/17/18 23:44 98.8 F 69 18 97/49 100 12/17/18 22:45 98.4 F 72 16 100/54 99 12/17/18 20:23 98.5 F 70 18 99/61 100 Intake and Output 12/18/18 12/18/18 12/18/18 06:59 14:59 22:59 Other: Voiding Method Toilet # Voids 1 # Bowel Movements 1 Weight 107.3 kg On physical examination, patient appears comfortable in no apparent distress. HEAD: Normocephalic, atraumatic. EYES: No scleral icterus. No conjunctival injection. MOUTH: No lesions, tongue midline. NECK: Trachea midline, no gross abnormalities. CHEST: Decreased air entry in all lung simon. HEART: Regular rate and rhythm. ABDOMEN: Soft, obese, mildly distended with positive fluid wave. The patient does have a right-sided abdominal ostomy with good output. Bowel sounds are positive. No organomegaly. No guarding or rigidity. EXTREMITIES: Mild bilateral pedal edema. SKIN: No rashes, no jaundice. NEUROLOGIC: Alert and oriented x3. No focal deficits. Results CBC & Chem 7: 12/17/18 21:30 12/17/18 21:30 Labs: Abnormal Lab Results - Last 24 Hours (Table) 12/17/18 12/17/18 12/17/18 Range/Units 21:30 21:30 21:30 RBC 3.18 L (3.80-5.40) m/uL Hgb 9.8 L (11.4-16.0) gm/dL Hct 29.5 L (34.0-46.0) % RDW 18.4 H (11.5-15.5) % Plt Count 100 L (150-450) k/uL PT (9.0-12.0) sec INR (<1.2) Sodium 134 L (137-145) mmol/L Carbon Dioxide 19 L (22-30) mmol/L Creatinine 1.18 H (0.52-1.04) mg/dL Glucose 126 H (74-99) mg/dL POC Glucose (mg/dL) (75-99) mg/dL Calcium 8.1 L (8.4-10.2) mg/dL Total Bilirubin 1.6 H (0.2-1.3) mg/dL AST 54 H (14-36) U/L Alkaline Phosphatase 196 H (38-126) U/L Total Creatine Kinase 370 H (30-135) U/L CK-MB (CK-2) 4.0 H (0.0-2.4) ng/mL Troponin I 0.043 H* (0.000-0.034) ng/mL Total Protein 5.9 L (6.3-8.2) g/dL Albumin 2.4 L (3.5-5.0) g/dL 12/17/18 12/18/18 12/18/18 Range/Units 21:30 06:16 09:46 RBC (3.80-5.40) m/uL Hgb (11.4-16.0) gm/dL Hct (34.0-46.0) % RDW (11.5-15.5) % Plt Count (150-450) k/uL PT 14.8 H (9.0-12.0) sec INR 1.5 H (<1.2) Sodium (137-145) mmol/L Carbon Dioxide (22-30) mmol/L Creatinine (0.52-1.04) mg/dL Glucose (74-99) mg/dL POC Glucose (mg/dL) 179 H (75-99) mg/dL Calcium (8.4-10.2) mg/dL Total Bilirubin (0.2-1.3) mg/dL AST (14-36) U/L Alkaline Phosphatase (38-126) U/L Total Creatine Kinase (30-135) U/L CK-MB (CK-2) (0.0-2.4) ng/mL Troponin I 0.041 H* (0.000-0.034) ng/mL Total Protein (6.3-8.2) g/dL Albumin (3.5-5.0) g/dL 12/18/18 12/18/18 Range/Units 11:50 16:27 RBC (3.80-5.40) m/uL Hgb (11.4-16.0) gm/dL Hct (34.0-46.0) % RDW (11.5-15.5) % Plt Count (150-450) k/uL PT (9.0-12.0) sec INR (<1.2) Sodium (137-145) mmol/L Carbon Dioxide (22-30) mmol/L Creatinine (0.52-1.04) mg/dL Glucose (74-99) mg/dL POC Glucose (mg/dL) 214 H 133 H (75-99) mg/dL Calcium (8.4-10.2) mg/dL Total Bilirubin (0.2-1.3) mg/dL AST (14-36) U/L Alkaline Phosphatase (38-126) U/L Total Creatine Kinase (30-135) U/L CK-MB (CK-2) (0.0-2.4) ng/mL Troponin I (0.000-0.034) ng/mL Total Protein (6.3-8.2) g/dL Albumin (3.5-5.0) g/dL Assessment and Plan (1) Abdominal pain Narrative/Plan: The patient has had multiple admissions, with complaints of abdominal pain and pain around her ostomy. On this presentation she reports pain associated with abdominal distention. She previously had paracentesis, 2 times, on her last admission, with ascites secondary to known history of liver disease. Current Visit: Yes Status: Acute Code(s): R10.9 - UNSPECIFIED ABDOMINAL PAIN SNOMED Code(s): 14395239 (2) History of liver cancer Current Visit: Yes Status: Acute Code(s): Z85.05 - PERSONAL HISTORY OF MALIGNANT NEOPLASM OF LIVER SNOMED Code(s): 417059870 (3) Peripheral edema Current Visit: Yes Status: Acute Code(s): R60.9 - EDEMA, UNSPECIFIED SNOMED Code(s): 607924631 (4) Ascites Current Visit: Yes Status: Chronic Priority: Medium Code(s): R18.8 - OTHER ASCITES SNOMED Code(s): 138753416 Plan: Supportive care Okay for diet 2 g sodium restriction Continue diuresis with a low tone 50 mg daily and Lasix 40 mg daily, can consider further up titration of diuresis, with careful monitoring of electrolytes and kidney function Ultrasound abdomen with paracentesis ordered Continue dicyclomine 3 times a day for abdominal pain Thank you for allowing us to participate in the care of this patient we will continue to follow
[2018-12-18] MEDS: FERROUS SULFATE 325 MG TAB PO SCH (19:59)
[2018-12-18 20:02] LABS: Glucose,Whole Blood 122 mg/dL (75-99)
[2018-12-18] MEDS: INSULIN NPH 300 UNIT/3 ML VIAL SQ SCH (20:05)
--- NOTE | 2018-12-18 21:07 | P.CONS ---
History of Present Illness - Reason for Consult Consult date: 12/18/18 history of liver cancer. Chronic pain, recurrent ascites - History of Present Illness Ms. Keenan is a pleasant 73 year old female who was initially introduced to our service at recent hospitalization in 11/01. She has a known history of Hepatocellular carcinoma, originally diagnosed through [facility]. At her last hospitalization we were not able to obtain all of her medical records until now as she has been seen and treated at many different outside hospitals since her initial diagnosis. Medical Surgical History includes: Diverticulitis in 2010 with perforation colectomy, ileostomy, left lateral liver hepatocellular carcinoma, non- alcoholic liver cirrhosis (per patient diagnosis in 2002), Thrombocytopenia, Anemia, Hypertension, Diabetes Mellitus, OA, Mood Disorder, depression, Chronic Pain. Cholecystectomy, Appendectomy, Exp Lap with lysis of adhesions, Total abdominal hysterectomy, C-sections. 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 [facility] was consulted as well on intial pathology. It was felt to be an [facility] as hepatocellular parenchyma exhibited heavily lipidized cells by collagen and lymphoid response. Note she has history of an existing ileostomy due to dicerticulitis perforation in 2010, where colectomy and ileostomy was completed on 09/11/2011 04/18/2013 - Admitted to [facility] - under Dr. Desai with intent to resect liver mass, ex lap performed but excision of mass was not able to be performed Sometime between 2012--2014 she was treated with Chemoembolization (per patient at [facility]) She was also seen and treated by Dr. Varela during this time 2014: Seen at [facility] and again in 2016 she consulted with yet another hematology, oncologist Dr. Greg Bear in November 2016. 02/2016 - Ablation liver mass (unknown hospital) 06/2016 - Was evaluated at [facility] by Gastroenterology when a repeat liver biopsy was performed. Resulted with well-differentiated Hepatocellular Carcinoma 10/2016 Underwent Chemoembolization to left hepatic lobe with Interventional Radiology 08/2018 - She was evaluated at [facility] Right Hepatic Lobe Biopsy was performed - Well differentiated Hepatocellular Carcinoma and new 4.3cm right hepatic mass and underwent chemoembolization at this facility in August. At this time she also consulted with Medical Oncologist Dr. Ar Julio. She has had multiple admissions for abdominal pain, and recurrent ascites. She has had multiple paracenteses with cytology negative. This is felt to be related to her known cirrhosis. Her pain is not felt to be related to her HCC, and appears to be due to hernia related to her stoma, exacerbated by jasmyn recurrent ascites. She has had multiple office appointments made but has not kept them due to recurrent hospital admissions She was advised to f/u with her surgeon at [facility], and states she has an appointment with a physician from that group The patient came back to the emergency room with essentially similar complaints after discharge 2 days ago. She is complaining of some increased abdominal swelling and discomfort, as well as lower extremities swelling. In the emergency room she was found to have a mildly elevated troponin. She was therefore admitted for further management and consult placed. Review of Systems Constitutional: Reports chronic pain, Reports fatigue, Reports weakness Eyes: denies blurred vision, denies pain Ears: deny: decreased hearing, ear discharge, earache, tinnitus Ears, nose, mouth and throat: Denies headache, Denies sore throat Cardiovascular: Reports decreased exercise tolerance Respiratory: Reports as per HPI Gastrointestinal: Reports as per HPI, Reports abdominal pain, Reports bloating Genitourinary: Denies dysuria, Denies hematuria Menstruation: Reports postmenopausal Musculoskeletal: Reports as per HPI (lower extremity swelling), Reports muscle weakness Integumentary: Denies pruritus, Denies rash Neurological: Reports weakness Psychiatric: Reports anxiety Endocrine: Reports fatigue Hematologic/Lymphatic: Reports as per HPI Past Medical History Past Medical History: Cancer, Diabetes Mellitus, Hypertension, Liver Disease Additional Past Medical History / Comment(s): liver ca- had chemo 10-03-18,past ascities-paracentesis, ulcer(sx),diveticulitis, anx/depression History of Any Multi-Drug Resistant Organisms: MRSA Year Discovered:: 10/23/18 MDRO Source:: MRSA STOOL Past Surgical History: Appendectomy, Bowel Resection, Section, Cholecystectomy, Hysterectomy, Tonsillectomy Additional Past Surgical History / Comment(s): rt rotator cuff repair,carpal tunnel release .liver bx,ilieostomy ,paracentesis, chemo, embolizations of liver tumors Past Anesthesia/Blood Transfusion Reactions: No Reported Reaction Past Psychological History: Anxiety, Depression Additional Psychological History / Comment(s): Reformed smoker. . Retired. No experience. No animal exposures Smoking Status: Former smoker Past Alcohol Use History: None Reported Additional Past Alcohol Use History / Comment(s): started smoking 1962 and quit 1965 Past Drug Use History: None Reported - Past Family History Mother History Unknown: Yes Family Medical History: Congestive Heart Failure (CHF) Medications and Allergies Home Medications Medication Instructions Recorded Confirmed Type Dicyclomine [Bentyl] 10 mg PO TID 10/23/18 12/17/18 History Furosemide [Lasix] 40 mg PO DAILY 10/23/18 12/17/18 History Omeprazole [PriLOSEC] 20 mg PO BID 10/23/18 12/17/18 History Sucralfate [Carafate] 1 gm PO QID 10/23/18 12/17/18 History Insulin NPH Human Isophane 18 unit SQ BID 10/24/18 12/17/18 History [NovoLIN N] Insulin Regular, Human [NovoLIN R] 8 unit SQ AC-TID 10/24/18 12/17/18 History Magnesium 200 mg PO DAILY 10/24/18 12/17/18 History Metoprolol Tartrate 12.5 mg PO DAILY 10/24/18 12/17/18 History Ondansetron [Zofran ODT] 8 mg PO Q8HR 10/24/18 12/17/18 History clonazePAM [KlonoPIN] 0.5 mg PO DAILY tab 11/03/18 12/17/18 Rx Cholestyramine (with Sugar) 4 gm PO TID #21 packet 11/04/18 12/17/18 Rx [Questran Packet] Morphine Sulfate ER [Ms Contin] 15 mg PO Q8H #9 tablet 11/22/18 12/17/18 Rx Pregabalin [Lyrica] 25 mg PO TID #9 cap 11/22/18 12/17/18 Rx Ferrous Sulfate [Iron (65 MG 325 mg PO BID #60 tab 12/15/18 12/17/18 Rx Elemental)] Morphine Sulfate Ir [MSIR] 15 mg PO Q6HR PRN tablet 12/15/18 12/17/18 Rx Spironolactone [Aldactone] 50 mg PO DAILY 12/17/18 12/17/18 History Allergies Allergy/AdvReac Type Severity Reaction Status Date / Time GREG Inhibitors Allergy Cough Verified 12/17/18 20:37 amlodipine Allergy Rash/Hives Verified 12/17/18 20:37 oxycodone Allergy Rash/Hives Verified 12/17/18 20:37 Penicillins Allergy Rash/Hives Verified 12/17/18 20:37 hydromorphone [From Dilaudid] AdvReac Unknown Verified 12/17/18 20:37 sodium dodecyclbenzene Allergy Rash/Hives Uncoded 12/17/18 20:27 sulfonate Physical Exam Vitals: Vital Signs Temp Pulse Pulse Resp BP BP Pulse Ox 12/18/18 11:02 97.6 F 77 18 103/55 97 12/18/18 08:00 97.1 F L 81 18 107/51 98 12/18/18 04:00 99.3 F 79 17 91/45 98 12/18/18 00:00 69 18 12/17/18 23:53 75 16 105/55 98 12/17/18 23:44 98.8 F 69 18 97/49 100 12/17/18 22:45 98.4 F 72 16 100/54 99 12/17/18 20:23 98.5 F 70 18 99/61 100 Intake and Output 12/17/18 12/18/18 12/18/18 22:59 06:59 14:59 Other: Voiding Method Toilet # Voids 1 # Bowel Movements 1 Weight 109.769 kg 107.3 kg - Constitutional General appearance: no acute distress - EENT Eyes: EOMI, PERRLA ENT: hearing grossly normal, normal oropharynx - Neck Thyroid: bilateral: normal size - Respiratory Respiratory: bilateral: CTA - Cardiovascular Rhythm: regular Heart sounds: normal: S1, S2 - Gastrointestinal ascites on exam ostomy midabdomen, with parastomal hernia General gastrointestinal: distended, normal bowel sounds, soft - Integumentary Integumentary: normal - Neurologic Neurologic: CNII-XII intact, focal deficits - Musculoskeletal Musculoskeletal: generalized weakness, strength equal bilaterally - Psychiatric Psychiatric: A&O x's 3, appropriate affect Results CBC & Chem 7: 12/17/18 21:30 12/17/18 21:30 Labs: Abnormal Lab Results - Last 24 Hours (Table) 12/17/18 12/17/18 12/17/18 Range/Units 21:30 21:30 21:30 RBC 3.18 L (3.80-5.40) m/uL Hgb 9.8 L (11.4-16.0) gm/dL Hct 29.5 L (34.0-46.0) % RDW 18.4 H (11.5-15.5) % Plt Count 100 L (150-450) k/uL PT (9.0-12.0) sec INR (<1.2) Sodium 134 L (137-145) mmol/L Carbon Dioxide 19 L (22-30) mmol/L Creatinine 1.18 H (0.52-1.04) mg/dL Glucose 126 H (74-99) mg/dL POC Glucose (mg/dL) (75-99) mg/dL Calcium 8.1 L (8.4-10.2) mg/dL Total Bilirubin 1.6 H (0.2-1.3) mg/dL AST 54 H (14-36) U/L Alkaline Phosphatase 196 H (38-126) U/L Total Creatine Kinase 370 H (30-135) U/L CK-MB (CK-2) 4.0 H (0.0-2.4) ng/mL Troponin I 0.043 H* (0.000-0.034) ng/mL Total Protein 5.9 L (6.3-8.2) g/dL Albumin 2.4 L (3.5-5.0) g/dL 12/17/18 12/18/18 12/18/18 Range/Units 21:30 06:16 09:46 RBC (3.80-5.40) m/uL Hgb (11.4-16.0) gm/dL Hct (34.0-46.0) % RDW (11.5-15.5) % Plt Count (150-450) k/uL PT 14.8 H (9.0-12.0) sec INR 1.5 H (<1.2) Sodium (137-145) mmol/L Carbon Dioxide (22-30) mmol/L Creatinine (0.52-1.04) mg/dL Glucose (74-99) mg/dL POC Glucose (mg/dL) 179 H (75-99) mg/dL Calcium (8.4-10.2) mg/dL Total Bilirubin (0.2-1.3) mg/dL AST (14-36) U/L Alkaline Phosphatase (38-126) U/L Total Creatine Kinase (30-135) U/L CK-MB (CK-2) (0.0-2.4) ng/mL Troponin I 0.041 H* (0.000-0.034) ng/mL Total Protein (6.3-8.2) g/dL Albumin (3.5-5.0) g/dL 12/18/18 Range/Units 11:50 RBC (3.80-5.40) m/uL Hgb (11.4-16.0) gm/dL Hct (34.0-46.0) % RDW (11.5-15.5) % Plt Count (150-450) k/uL PT (9.0-12.0) sec INR (<1.2) Sodium (137-145) mmol/L Carbon Dioxide (22-30) mmol/L Creatinine (0.52-1.04) mg/dL Glucose (74-99) mg/dL POC Glucose (mg/dL) 214 H (75-99) mg/dL Calcium (8.4-10.2) mg/dL Total Bilirubin (0.2-1.3) mg/dL AST (14-36) U/L Alkaline Phosphatase (38-126) U/L Total Creatine Kinase (30-135) U/L CK-MB (CK-2) (0.0-2.4) ng/mL Troponin I (0.000-0.034) ng/mL Total Protein (6.3-8.2) g/dL Albumin (3.5-5.0) g/dL Assessment and Plan (1) Abdominal pain Narrative/Plan: The patient has had multiple admissions for essentially similar complaints. She has a significant component of anxiety, and objective evaluation often does not match her claimed level of pain. Currently the patient appears quite comfortable. Troponin is only mildly negative, and cardiac workup is in process to rule out ischemia. Her pain is not felt to be related to her malignancy, which is limited to the liver, while the site of her pain is different. This appears to be related to her ostomy and stomal hernia, with exacerbation when ever her ascites reaccumulates. Case discussed with the admitting service. Continue current pain regimen. Plan for repeat paracentesis. Patient was again ordered to have when necessary paracentesis as an outpatient to avoid recurrent admissions. Current Visit: Yes Status: Acute Code(s): R10.9 - UNSPECIFIED ABDOMINAL PAIN SNOMED Code(s): 46565617 (2) History of liver cancer Narrative/Plan: The patient has liver limited disease. At this time is not clear of the patient has any progression. From our standpoint the plan is to follow up as an outpatient to establish surveillance. However she has missed multiple appointments due to recurrent hospital admissions Current Visit: Yes Status: Acute Code(s): Z85.05 - PERSONAL HISTORY OF MALIGNANT NEOPLASM OF LIVER SNOMED Code(s): 582878292 Plan: The patient says that she has obtained an appointment with a surgeon at [facility]. She was urged to keep that appointment
[2018-12-19] MEDS: MORPHINE SULFATE ER 15 MG TABLET PO SCH ×3 (02:58→21:32)
[2018-12-19 06:54] LABS: Glucose,Whole Blood 114 mg/dL (75-99)
[2018-12-19] MEDS ORDERED: PANTOPRAZOLE 40 MG TABLET PO SCH (07:30)
[2018-12-19 07:34] LABS: INR 1.4 (<1.2); Prothrombin Time 14.5 sec (9.0-12.0)
[2018-12-19 07:48] LABS: Albumin 2.5 g/dL (3.5-5.0); Calcium 8.1 mg/dL (8.4-10.2); Magnesium 1.8 mg/dL (1.6-2.3); Potassium 5.1 mmol/L (3.5-5.1); Total Bilirubin 1.8 mg/dL (0.2-1.3)
[2018-12-19 07:51] LABS: Anisocytosis Slight; Basophils % (A) 1 %; Eosinophils # (A) 0.2 k/uL (0-0.7); Eosinophils % (A) 7 %; HCT 32.2 % (34.0-46.0); HGB 9.7 gm/dL (11.4-16.0); Hypochromasia Marked; Lymphocytes % (A) 32 %; MCH 28.9 pg (25.0-35.0); MCV 96.5 fL (80.0-100.0); Macrocytosis Slight; Mean Platelet Volume 8.6; Monocytes # (A) 0.3 k/uL (0-1.0); Monocytes % (A) 9 %; Neutrophils # (A) 1.4 k/uL (1.3-7.7); Neutrophils % (A) 48 %; RBC 3.34 m/uL (3.80-5.40)
[2018-12-19 07:53] LABS: Platelet Count 99 k/uL (150-450)
[2018-12-19] MEDS: FERROUS SULFATE 325 MG TAB PO SCH ×2 (08:56→20:49)
[2018-12-19] MEDS: MAGNESIUM OXIDE 400 MG TAB PO SCH (08:56)
[2018-12-19] MEDS: ENOXAPARIN 40 MG/0.4 ML SYRINGE SQ SCH (08:56)
[2018-12-19] MEDS: PREGABALIN 25 MG CAP PO SCH ×3 (08:57→21:29)
[2018-12-19] MEDS: clonazePAM 0.5 MG TAB PO SCH (08:57)
[2018-12-19] MEDS: PANTOPRAZOLE 40 MG TABLET PO SCH ×2 (08:57→18:07)
[2018-12-19] MEDS: METOPROLOL TARTRATE 12.5 MG TAB PO SCH (08:57)
[2018-12-19] MEDS: ONDANSETRON ODT 8 MG TAB.RAPDIS PO SCH ×4 (08:58→23:46)
[2018-12-19] MEDS: INSULIN ASPART 100 UNIT/ML 1 ML 10 ML VIAL SQ SCH ×4 (08:59→20:48)
[2018-12-19] MEDS: INSULIN NPH 300 UNIT/3 ML VIAL SQ SCH ×2 (09:00→20:51)
[2018-12-19] MEDS ORDERED: SPIRONOLACTONE 25 MG TAB PO SCH (09:00)
[2018-12-19] MEDS ORDERED: FUROSEMIDE 40 MG TAB PO SCH (09:00)
[2018-12-19] MEDS: INSULIN REGULAR 100 UNIT/ML VIAL SQ SCH ×3 (09:02→18:09)
[2018-12-19] MEDS: DICYCLOMINE 10 MG CAP PO SCH ×3 (09:06→20:49)
[2018-12-19] MEDS: SUCRALFATE 1 GM TAB PO SCH ×4 (09:56→20:50)
[2018-12-19] MEDS: CHOLESTYRAMINE (WITH SUGAR) 4 GM PACKET PO SCH ×3 (09:58→18:01)
--- NOTE | 2018-12-19 10:35 | P.PN ---
Subjective Progress Note Date: 12/19/18 This is a 73-year-old female patient of Dr. Martinez. Patient presented to the emergency room with complaints of lower extremity and abdominal edema. Patient has had multiple frequent admissions to the hospital for same complaints. Patient did undergo paracentesis last week. Patient does have a known past medical history of primary liver cancer, diabetes mellitus, hypertension, MRSA in her stool, anxiety, depression and nonalcoholic liver cirrhosis. Patient was also found to have a mildly elevated troponin. Cardiology services have been consulted. EKG completed showing normal sinus rhythm, right bundle branch block, minimal voltage criteria for LVH may be normal variant. Oncology and GI services have been consulted. At this time patient denies any chest pain. Patient is complaining of abdominal discomfort. Patient does report that her stoma is working properly. Patient was advised upon last discharge to follow- up with surgeon who originally performed lap nettie with ostomy multiple years ago through [facility]. Patient denies any shortness of breath. Patient denies nausea vomiting or diarrhea. Patient denies any urinary burning or frequency. On 12/19/2018 patient is currently resting comfortably in bed. Patient does report that she still having some abdominal discomfort. Ultrasound with possible paracentesis has been ordered per GI services. Acute ischemic event has been ruled out per cardiology. Patient did receive IV Lasix history per cardiology. Patient denies chest pain or shortness breath. Patient denies nausea vomiting or diarrhea. Patient denies any urinary burning or frequency Objective - Vital Signs Vital signs: Vital Signs Temp 98.4 F 12/19/18 05:29 Pulse 69 12/19/18 05:29 Resp 18 12/19/18 05:29 BP 97/49 12/19/18 05:29 Pulse Ox 98 12/19/18 05:29 Intake & Output 12/18/18 12/19/18 12/19/18 18:59 06:59 18:59 Weight 105 kg Other: Voiding Method Toilet Toilet # Voids 1 1 - Exam Head normocephalic Neck supple Lungs clear to auscultation bilaterally no wheezing or crackles Heart regular rate and rhythm S1-S2, no rub or gallop Abdomen mildly distended soft abdomen with right lower quadrant ostomy. Brown liquid stool present Extremities +1 nonpitting lower extremity edema Neuro alert and orientated to 3 - Labs CBC & Chem 7: 12/19/18 07:06 02/04/19 07:06 Labs: Abnormal Lab Results - Last 24 Hours (Table) 12/18/18 12/18/18 12/18/18 Range/Units 09:46 11:50 16:27 WBC (3.8-10.6) k/uL RBC (3.80-5.40) m/uL Hgb (11.4-16.0) gm/dL Hct (34.0-46.0) % MCHC (31.0-37.0) g/dL RDW (11.5-15.5) % Plt Count (150-450) k/uL PT (9.0-12.0) sec INR (<1.2) Sodium (137-145) mmol/L Chloride (98-107) mmol/L Glucose (74-99) mg/dL POC Glucose (mg/dL) 214 H 133 H (75-99) mg/dL Calcium (8.4-10.2) mg/dL Total Bilirubin (0.2-1.3) mg/dL AST (14-36) U/L Alkaline Phosphatase (38-126) U/L Troponin I 0.041 H* (0.000-0.034) ng/mL Total Protein (6.3-8.2) g/dL Albumin (3.5-5.0) g/dL 12/18/18 12/19/18 12/19/18 Range/Units 20:01 06:53 07:06 WBC 3.0 L (3.8-10.6) k/uL RBC 3.34 L (3.80-5.40) m/uL Hgb 9.7 L (11.4-16.0) gm/dL Hct 32.2 L (34.0-46.0) % MCHC 30.0 L (31.0-37.0) g/dL RDW 18.0 H (11.5-15.5) % Plt Count 99 L (150-450) k/uL PT (9.0-12.0) sec INR (<1.2) Sodium (137-145) mmol/L Chloride (98-107) mmol/L Glucose (74-99) mg/dL POC Glucose (mg/dL) 122 H 114 H (75-99) mg/dL Calcium (8.4-10.2) mg/dL Total Bilirubin (0.2-1.3) mg/dL AST (14-36) U/L Alkaline Phosphatase (38-126) U/L Troponin I (0.000-0.034) ng/mL Total Protein (6.3-8.2) g/dL Albumin (3.5-5.0) g/dL 12/19/18 12/19/18 Range/Units 07:06 07:06 WBC (3.8-10.6) k/uL RBC (3.80-5.40) m/uL Hgb (11.4-16.0) gm/dL Hct (34.0-46.0) % MCHC (31.0-37.0) g/dL RDW (11.5-15.5) % Plt Count (150-450) k/uL PT 14.5 H (9.0-12.0) sec INR 1.4 H (<1.2) Sodium 136 L (137-145) mmol/L Chloride 108 H (98-107) mmol/L Glucose 106 H (74-99) mg/dL POC Glucose (mg/dL) (75-99) mg/dL Calcium 8.1 L (8.4-10.2) mg/dL Total Bilirubin 1.8 H (0.2-1.3) mg/dL AST 47 H (14-36) U/L Alkaline Phosphatase 192 H (38-126) U/L Troponin I (0.000-0.034) ng/mL Total Protein 6.0 L (6.3-8.2) g/dL Albumin 2.5 L (3.5-5.0) g/dL Assessment and Plan Assessment: 1. Abdominal pain due to recurring ascites. GI services have been consulted. During previous admission patient did receive paracentesis. Patient Aldactone also increased per GI services to 50 mg daily. Patient previously evaluated by general surgery due to ostomy pain and no surgical intervention was recommended at that time. Patient advised during last admission that she should follow-up with surgeon who originally performed her surgery. Oncology was working on arranging appointment for patient. 2. Elevated troponin. EKG completed showing normal sinus rhythm, right bundle branch block. Per cardiology services patient does not appear to be in acute CHF and troponins not consistent with acute coronary syndrome. Patient was given IV Lasix per cardiology. 3. History of MRSA and patient stool. Patient has completed treatment 4. History of nonalcoholic liver cirrhosis 5. History of pancytopenia due to known liver cancer. Secondary to chronic liver cirrhosis 6. History of diverticulitis with ileostomy placement. Patient reports she does have appointment with [place] surgeon who originally performed surgery. Patient was previously evaluated by our surgical team during previous admission 7. Insulin-dependent diabetes mellitus. Previously hemoglobin A1c 7.1. Home resumed 8. Elevated liver enzymes due to known chronic liver malignancy 9. Iron deficiency anemia. Patient maintained on ferrous sulfate 10. Hypotension. Blood pressures in the 90s. Home meds resumed with parameters. We'll continue to monitor closely 11. Coagulopathy secondary to patient's liver disease. Daily PT/INRs have been ordered 12. History of hepatocellular carcinoma status post chemo embolization 2012, 2015 and 2018. Patient seen by oncology DVT prophylaxis SCDs due to thrombocytopenia and possible paracentesis. GI prophylaxis Protonix I performed an examination of the patient and discussed their management with the Nurse Practitioner. I have reviewed the Nurse Practitioner's notes and agree with the documented findings and plan of care
[2018-12-19 11:19] LABS: Glucose,Whole Blood 189 mg/dL (75-99)
--- NOTE | 2018-12-19 12:55 | P.PN ---
Subjective This is a pleasant 73-year-old female past medical history significant for liver cancer 2010, frequent paracentesis due to ascites, diabetes mellitus, former nicotine dependence and mildly impaired LV systolic function with basal posterior, basal inferior and basal inferoseptal wall motion hypokinesia. We are following her secondary to elevated troponins noted on admission. The trend is not consistent with an acute event. She denies having any chest pain, shortness of breath, dizziness or palpitations. She continues to feel an uncomfortable tight feeling in her abdomen. Ultrasound of the abdomen for paracentesis currently pending. Currently maintained on lasix 40 mg daily, lopressore 12.5 mg daily and aldactone 50 mg daily. Laboratory data reviewed, WBC 3.0, hemoglobin 9.7, platelets 99, INR 1.4, sodium 136, potassium 5.1, creatinine 0.86, alkaline phosphate 192. Blood pressure 98/47 heart rate 66 afebrile maintaining oxygen saturation on room air. GENERAL: Well-appearing, well-nourished and in no acute distress. NECK: Supple with JVD noted, no thyromegaly. LUNGS: Breath sounds clear to auscultation bilaterally. Respiration equal and unlabored. No wheezes, rales or rhonchi. HEART: Regular rate and rhythm with systolic murmurs, rubs or gallops. S1 and S2 heard. EXTREMITIES: Normal range of motion, non-pitting lower extremity edema. No clubbing or cyanosis. Peripheral pulses intact. ASSESSMENT Recurrent ascites Mild peak of troponin not indicative of an acute coronary event Cardiomyopathy, previously started on lopressor and losartan however losartan was causing hypotension and has since been discontinued. Diabetes mellitus History of nonalcoholic liver cirrhosis History of hepatocellular carcinoma status post chemoembolization Aortic stenosis, mean 16 mmHg PLAN Recommend changing from lasix to demadex 20 mg BID and increase aldactone to 50 mg BID. GREG/ARB not currently in place due to hypotension. Ongoing evaluation per GI services. Nurse Practitioner note has been reviewed, I agree with a documented findings and plan of care. Patient was seen and examined. Objective - Vital Signs Vital signs: Vital Signs Temp 97.8 F 12/19/18 11:27 Pulse 66 12/19/18 11:27 Resp 16 12/19/18 11:27 BP 98/47 12/19/18 11:27 Pulse Ox 100 12/19/18 11:27 Intake & Output 12/18/18 12/19/18 12/19/18 18:59 06:59 18:59 Weight 105 kg Other: Voiding Method Toilet Toilet # Voids 1 1 - Labs CBC & Chem 7: 12/19/18 07:06 12/19/18 07:06 Labs: Abnormal Lab Results - Last 24 Hours (Table) 12/18/18 12/18/18 12/19/18 Range/Units 16:27 20:01 06:53 WBC (3.8-10.6) k/uL RBC (3.80-5.40) m/uL Hgb (11.4-16.0) gm/dL Hct (34.0-46.0) % MCHC (31.0-37.0) g/dL RDW (11.5-15.5) % Plt Count (150-450) k/uL PT (9.0-12.0) sec INR (<1.2) Sodium (137-145) mmol/L Chloride (98-107) mmol/L Glucose (74-99) mg/dL POC Glucose (mg/dL) 133 H 122 H 114 H (75-99) mg/dL Calcium (8.4-10.2) mg/dL Total Bilirubin (0.2-1.3) mg/dL AST (14-36) U/L Alkaline Phosphatase (38-126) U/L Total Protein (6.3-8.2) g/dL Albumin (3.5-5.0) g/dL 12/19/18 12/19/18 12/19/18 Range/Units 07:06 07:06 07:06 WBC 3.0 L (3.8-10.6) k/uL RBC 3.34 L (3.80-5.40) m/uL Hgb 9.7 L (11.4-16.0) gm/dL Hct 32.2 L (34.0-46.0) % MCHC 30.0 L (31.0-37.0) g/dL RDW 18.0 H (11.5-15.5) % Plt Count 99 L (150-450) k/uL PT 14.5 H (9.0-12.0) sec INR 1.4 H (<1.2) Sodium 136 L (137-145) mmol/L Chloride 108 H (98-107) mmol/L Glucose 106 H (74-99) mg/dL POC Glucose (mg/dL) (75-99) mg/dL Calcium 8.1 L (8.4-10.2) mg/dL Total Bilirubin 1.8 H (0.2-1.3) mg/dL AST 47 H (14-36) U/L Alkaline Phosphatase 192 H (38-126) U/L Total Protein 6.0 L (6.3-8.2) g/dL Albumin 2.5 L (3.5-5.0) g/dL 12/19/18 Range/Units 11:18 WBC (3.8-10.6) k/uL RBC (3.80-5.40) m/uL Hgb (11.4-16.0) gm/dL Hct (34.0-46.0) % MCHC (31.0-37.0) g/dL RDW (11.5-15.5) % Plt Count (150-450) k/uL PT (9.0-12.0) sec INR (<1.2) Sodium (137-145) mmol/L Chloride (98-107) mmol/L Glucose (74-99) mg/dL POC Glucose (mg/dL) 189 H (75-99) mg/dL Calcium (8.4-10.2) mg/dL Total Bilirubin (0.2-1.3) mg/dL AST (14-36) U/L Alkaline Phosphatase (38-126) U/L Total Protein (6.3-8.2) g/dL Albumin (3.5-5.0) g/dL
[2018-12-19] MEDS: TORSEMIDE 20 MG TAB PO SCH (13:11)
[2018-12-19 17:00] LABS: Glucose,Whole Blood 71 mg/dL (75-99)
--- NOTE | 2018-12-19 18:46 | P.PN ---
Subjective Progress Note Date: 12/19/18 Principal diagnosis: HCC, recurrent ascites The patient is lying in bed. Still reporting abdominal discomfort. No nausea or vomiting. He is tolerating her diet. Objective - Vital Signs Vital signs: Vital Signs Temp 97.8 F 12/19/18 11:27 Pulse 66 12/19/18 11:27 Resp 16 12/19/18 11:27 BP 98/47 12/19/18 11:27 Pulse Ox 100 12/19/18 11:27 Intake & Output 12/18/18 12/19/18 12/19/18 18:59 06:59 18:59 Weight 105 kg Other: Voiding Method Toilet Toilet # Voids 1 3 # Bowel Movements 2 - Exam On physical examination, patient appears comfortable in no apparent distress. HEAD: Normocephalic, atraumatic. EYES: No scleral icterus. No conjunctival injection. MOUTH: No lesions, tongue midline. NECK: Trachea midline, no gross abnormalities. CHEST: Clear to auscultation with no wheezing or rhonchi appreciated. HEART: Regular rate and rhythm. ABDOMEN: Soft, obese, ostomy with good output noted. Mildly distended with positive fluid wave. Bowel sounds are positive. No organomegaly. No guarding or rigidity. EXTREMITIES: Bilateral pedal edema. SKIN: No rashes, no jaundice. NEUROLOGIC: Alert and oriented x3. - Labs CBC & Chem 7: 12/19/18 07:06 12/19/18 07:06 Labs: Abnormal Lab Results - Last 24 Hours (Table) 12/18/18 12/19/18 12/19/18 Range/Units 20:01 06:53 07:06 WBC 3.0 L (3.8-10.6) k/uL RBC 3.34 L (3.80-5.40) m/uL Hgb 9.7 L (11.4-16.0) gm/dL Hct 32.2 L (34.0-46.0) % MCHC 30.0 L (31.0-37.0) g/dL RDW 18.0 H (11.5-15.5) % Plt Count 99 L (150-450) k/uL PT (9.0-12.0) sec INR (<1.2) Sodium (137-145) mmol/L Chloride (98-107) mmol/L Glucose (74-99) mg/dL POC Glucose (mg/dL) 122 H 114 H (75-99) mg/dL Calcium (8.4-10.2) mg/dL Total Bilirubin (0.2-1.3) mg/dL AST (14-36) U/L Alkaline Phosphatase (38-126) U/L Troponin I (0.000-0.034) ng/mL Total Protein (6.3-8.2) g/dL Albumin (3.5-5.0) g/dL 12/19/18 12/19/18 12/19/18 Range/Units 07:06 07:06 07:06 WBC (3.8-10.6) k/uL RBC (3.80-5.40) m/uL Hgb (11.4-16.0) gm/dL Hct (34.0-46.0) % MCHC (31.0-37.0) g/dL RDW (11.5-15.5) % Plt Count (150-450) k/uL PT 14.5 H (9.0-12.0) sec INR 1.4 H (<1.2) Sodium 136 L (137-145) mmol/L Chloride 108 H (98-107) mmol/L Glucose 106 H (74-99) mg/dL POC Glucose (mg/dL) (75-99) mg/dL Calcium 8.1 L (8.4-10.2) mg/dL Total Bilirubin 1.8 H (0.2-1.3) mg/dL AST 47 H (14-36) U/L Alkaline Phosphatase 192 H (38-126) U/L Troponin I 0.042 H* (0.000-0.034) ng/mL Total Protein 6.0 L (6.3-8.2) g/dL Albumin 2.5 L (3.5-5.0) g/dL 12/19/18 12/19/18 Range/Units 11:18 16:59 WBC (3.8-10.6) k/uL RBC (3.80-5.40) m/uL Hgb (11.4-16.0) gm/dL Hct (34.0-46.0) % MCHC (31.0-37.0) g/dL RDW (11.5-15.5) % Plt Count (150-450) k/uL PT (9.0-12.0) sec INR (<1.2) Sodium (137-145) mmol/L Chloride (98-107) mmol/L Glucose (74-99) mg/dL POC Glucose (mg/dL) 189 H 71 L (75-99) mg/dL Calcium (8.4-10.2) mg/dL Total Bilirubin (0.2-1.3) mg/dL AST (14-36) U/L Alkaline Phosphatase (38-126) U/L Troponin I (0.000-0.034) ng/mL Total Protein (6.3-8.2) g/dL Albumin (3.5-5.0) g/dL Assessment and Plan (1) Abdominal pain Narrative/Plan: The patient has had multiple admissions, with complaints of abdominal pain and pain around her ostomy. On this presentation she reports pain associated with abdominal distention. She previously had paracentesis, 2 times, on her last admission, with ascites secondary to known history of liver disease. Current Visit: Yes Status: Acute Code(s): R10.9 - UNSPECIFIED ABDOMINAL PAIN SNOMED Code(s): 83834954 (2) History of liver cancer Current Visit: Yes Status: Acute Code(s): Z85.05 - PERSONAL HISTORY OF MALIGNANT NEOPLASM OF LIVER SNOMED Code(s): 128925366 (3) Peripheral edema Current Visit: Yes Status: Acute Code(s): R60.9 - EDEMA, UNSPECIFIED SNOMED Code(s): 252093721 (4) Ascites Current Visit: Yes Status: Chronic Priority: Medium Code(s): R18.8 - OTHER ASCITES SNOMED Code(s): 648050052 Plan: Supportive care Okay for diet 2 g sodium restriction Aldactone increased to 50 mg twice daily, and torsemide substituted for furosemide Ultrasound abdomen with paracentesis as scheduled for today Continue dicyclomine 3 times a day for abdominal pain Thank you for allowing us to participate in the care of this patient we will continue to follow
[2018-12-19 20:10] LABS: Glucose,Whole Blood 115 mg/dL (75-99)
[2018-12-19] MEDS: SPIRONOLACTONE 25 MG TAB PO SCH (20:49)
[2018-12-19] MEDS: MORPHINE SULFATE IR 15 MG TABLET PO PRN (21:29)
[2018-12-20] MEDS: MORPHINE SULFATE ER 15 MG TABLET PO SCH ×3 (04:33→20:25)
[2018-12-20 06:59] LABS: Glucose,Whole Blood 96 mg/dL (75-99)
[2018-12-20] MEDS: INSULIN ASPART 100 UNIT/ML 1 ML 10 ML VIAL SQ SCH ×4 (07:40→21:30)
[2018-12-20] MEDS: METOPROLOL TARTRATE 12.5 MG TAB PO SCH (08:27)
[2018-12-20] MEDS: PREGABALIN 25 MG CAP PO SCH ×3 (08:27→22:36)
[2018-12-20] MEDS: clonazePAM 0.5 MG TAB PO SCH (08:27)
[2018-12-20] MEDS: FERROUS SULFATE 325 MG TAB PO SCH ×2 (08:28→22:35)
[2018-12-20] MEDS: PANTOPRAZOLE 40 MG TABLET PO SCH ×2 (08:28→17:37)
[2018-12-20] MEDS: MAGNESIUM OXIDE 400 MG TAB PO SCH (08:28)
[2018-12-20] MEDS: SPIRONOLACTONE 25 MG TAB PO SCH ×2 (08:28→22:35)
[2018-12-20] MEDS: ONDANSETRON ODT 8 MG TAB.RAPDIS PO SCH ×3 (08:35→23:23)
[2018-12-20] MEDS: DICYCLOMINE 10 MG CAP PO SCH ×3 (08:35→22:35)
[2018-12-20] MEDS: TORSEMIDE 20 MG TAB PO SCH ×2 (08:36→17:38)
[2018-12-20] MEDS: SUCRALFATE 1 GM TAB PO SCH ×4 (08:36→21:31)
[2018-12-20] MEDS: CHOLESTYRAMINE (WITH SUGAR) 4 GM PACKET PO SCH ×3 (08:36→17:37)
[2018-12-20] MEDS: INSULIN REGULAR 100 UNIT/ML VIAL SQ SCH ×3 (08:37→17:42)
[2018-12-20] MEDS: INSULIN NPH 300 UNIT/3 ML VIAL SQ SCH ×2 (08:38→22:34)
[2018-12-20 09:11] LABS: INR 1.6 (<1.2); Prothrombin Time 15.8 sec (9.0-12.0)
[2018-12-20 09:29] LABS: Albumin 2.4 g/dL (3.5-5.0); Calcium 7.8 mg/dL (8.4-10.2); Potassium 3.9 mmol/L (3.5-5.1); Total Bilirubin 1.8 mg/dL (0.2-1.3); Total Protein 5.6 g/dL (6.3-8.2)
[2018-12-20 09:31] LABS: Anisocytosis Slight; Basophils % (A) 0 %; Eosinophils # (A) 0.2 k/uL (0-0.7); Eosinophils % (A) 5 %; HCT 30.5 % (34.0-46.0); HGB 9.6 gm/dL (11.4-16.0); Hypochromasia Marked; Lymphocytes # (A) 1.1 k/uL (1.0-4.8); Lymphocytes % (A) 34 %; MCH 30.5 pg (25.0-35.0); MCHC 31.5 g/dL (31.0-37.0); MCV 97.1 fL (80.0-100.0); Macrocytosis Slight; Mean Platelet Volume 8.3; Monocytes # (A) 0.2 k/uL (0-1.0); Monocytes % (A) 6 %; Neutrophils # (A) 1.6 k/uL (1.3-7.7); Neutrophils % (A) 50 %; RBC 3.14 m/uL (3.80-5.40); RDW 18.3 % (11.5-15.5); WBC 3.3 k/uL (3.8-10.6)
[2018-12-20 09:33] LABS: Platelet Count 89 k/uL (150-450)
[2018-12-20 11:31] LABS: Glucose,Whole Blood 130 mg/dL (75-99)
[2018-12-20] MEDS: MORPHINE SULFATE IR 15 MG TABLET PO PRN (12:13)
--- NOTE | 2018-12-20 12:16 | US ---
EXAMINATION TYPE: US paracentesis abd w/image DATE OF EXAM: 12/20/2018 COMPARISON: NONE HISTORY: Ascites. PROCEDURE: Maximal barrier technique was utilized. The skin overlying a suitable pocket of fluid was localized with ultrasound and the overlying skin was prepped and draped. Ultrasound was utilized with sterile technique. Lidocaine was used for local anesthesia and a skin jenny made with a scalpel. Catheter was advanced under direct ultrasound guidance into a suitable pocket of fluid and approximately 2.1 liter s of serous fluid were removed. Catheter was withdrawn and hemostasis achieved. There is no immedia te complication; the patient is discharged in stable condition. IMPRESSION: STATUS POST ULTRASOUND GUIDED PARACENTESIS FOR PALLIATION OF ASCITES. THIS PROCEDURE WA S PERFORMED BY THE UNDERSIGNED.
--- NOTE | 2018-12-20 15:13 | P.PN ---
Subjective Progress Note Date: 12/20/18 This is a 73-year-old female patient of Dr. Martinez. Patient presented to the emergency room with complaints of lower extremity and abdominal edema. Patient has had multiple frequent admissions to the hospital for same complaints. Patient did undergo paracentesis last week. Patient does have a known past medical history of primary liver cancer, diabetes mellitus, hypertension, MRSA in her stool, anxiety, depression and nonalcoholic liver cirrhosis. Patient was also found to have a mildly elevated troponin. Cardiology services have been consulted. EKG completed showing normal sinus rhythm, right bundle branch block, minimal voltage criteria for LVH may be normal variant. Oncology and GI services have been consulted. At this time patient denies any chest pain. Patient is complaining of abdominal discomfort. Patient does report that her stoma is working properly. Patient was advised upon last discharge to follow- up with surgeon who originally performed lap nettie with ostomy multiple years ago through [facility]. Patient denies any shortness of breath. Patient denies nausea vomiting or diarrhea. Patient denies any urinary burning or frequency. On 12/19/2018 patient is currently resting comfortably in bed. Patient does report that she still having some abdominal discomfort. Ultrasound with possible paracentesis has been ordered per GI services. Acute ischemic event has been ruled out per cardiology. Patient did receive IV Lasix history per cardiology. Patient denies chest pain or shortness breath. Patient denies nausea vomiting or diarrhea. Patient denies any urinary burning or frequency On 12/20/2018 patient is currently resting in bed status post paracentesis. Patient received 2.2 L off. Had in-depth discussion with patient in regards to plan of care and frequent hospitalization. Also discussed hospice option due to reoccurring admission and increased pain. Will arrange for standing order for outpatient paracentesis. Patient expresses that she believes this will help prevent readmissions and help her to make her follow-up appointments. Patient does state she feels safe at home. Patient states she is compliant with medications while at home. At this time patient denies chest pain or shortness of breath. Patient denies nausea vomiting or diarrhea. Patient denies any urinary burning or frequency Objective - Vital Signs Vital signs: Vital Signs Temp 98.1 F 12/20/18 14:54 Pulse 62 12/20/18 14:54 Resp 17 12/20/18 14:54 BP 88/44 12/20/18 14:54 Pulse Ox 99 12/20/18 14:54 Intake & Output 12/19/18 12/20/18 12/20/18 18:59 06:59 18:59 Intake Total 480 Output Total 2100 Balance 480 -2100 Weight 105 kg Intake: Oral 480 Output: Gastric Drainage 2100 Other: Voiding Method Toilet Toilet Toilet # Voids 3 2 # Bowel Movements 2 - Exam Head normocephalic Neck supple Lungs clear to auscultation bilaterally no wheezing or crackles Heart regular rate and rhythm S1-S2, no rub or gallop Abdomen mildly distended soft abdomen with right lower quadrant ostomy. Brown liquid stool present Extremities +1 nonpitting lower extremity edema Neuro alert and orientated to 3 - Labs CBC & Chem 7: 12/20/18 08:26 12/20/18 08:26 Labs: Abnormal Lab Results - Last 24 Hours (Table) 12/19/18 12/19/18 12/20/18 Range/Units 16:59 20:10 08:26 WBC 3.3 L (3.8-10.6) k/uL RBC 3.14 L (3.80-5.40) m/uL Hgb 9.6 L (11.4-16.0) gm/dL Hct 30.5 L (34.0-46.0) % RDW 18.3 H (11.5-15.5) % Plt Count 89 L (150-450) k/uL PT (9.0-12.0) sec INR (<1.2) Creatinine (0.52-1.04) mg/dL Glucose (74-99) mg/dL POC Glucose (mg/dL) 71 L 115 H (75-99) mg/dL Calcium (8.4-10.2) mg/dL Total Bilirubin (0.2-1.3) mg/dL AST (14-36) U/L Alkaline Phosphatase (38-126) U/L Total Protein (6.3-8.2) g/dL Albumin (3.5-5.0) g/dL 12/20/18 12/20/18 12/20/18 Range/Units 08:26 08:26 11:30 WBC (3.8-10.6) k/uL RBC (3.80-5.40) m/uL Hgb (11.4-16.0) gm/dL Hct (34.0-46.0) % RDW (11.5-15.5) % Plt Count (150-450) k/uL PT 15.8 H (9.0-12.0) sec INR 1.6 H (<1.2) Creatinine 1.09 H (0.52-1.04) mg/dL Glucose 118 H (74-99) mg/dL POC Glucose (mg/dL) 130 H (75-99) mg/dL Calcium 7.8 L (8.4-10.2) mg/dL Total Bilirubin 1.8 H (0.2-1.3) mg/dL AST 40 H (14-36) U/L Alkaline Phosphatase 170 H (38-126) U/L Total Protein 5.6 L (6.3-8.2) g/dL Albumin 2.4 L (3.5-5.0) g/dL Assessment and Plan Assessment: 1. Abdominal pain due to recurring ascites. GI services have been consulted. During previous admission patient did receive paracentesis. Patient Aldactone also increased per GI services to 50 mg daily. Patient previously evaluated by general surgery due to ostomy pain and no surgical intervention was recommended at that time. Patient advised during last admission that she should follow-up with surgeon who originally performed her surgery. Oncology was working on arranging appointment for patient. Patient underwent paracentesis today. 2.2 L off 2. Elevated troponin. EKG completed showing normal sinus rhythm, right bundle branch block. Per cardiology services patient does not appear to be in acute CHF and troponins not consistent with acute coronary syndrome. Patient was given IV Lasix per cardiology. Lasix has since switched to torsemide per cardiology 3. History of MRSA and patient stool. Patient has completed treatment 4. History of nonalcoholic liver cirrhosis 5. History of pancytopenia due to known liver cancer. Secondary to chronic liver cirrhosis 6. History of diverticulitis with ileostomy placement. Patient reports she does have appointment with [facility] surgeon who originally performed surgery. Patient was previously evaluated by our surgical team during previous admission 7. Insulin-dependent diabetes mellitus. Previously hemoglobin A1c 7.1. Home resumed 8. Elevated liver enzymes due to known chronic liver malignancy 9. Iron deficiency anemia. Patient maintained on ferrous sulfate 10. Hypotension. Blood pressures in the 90s. Home meds resumed with parameters. We'll continue to monitor closely 11. Coagulopathy secondary to patient's liver disease. Daily PT/INRs have been ordered 12. History of hepatocellular carcinoma status post chemo embolization 2012, 2015 and 2018. Patient seen by oncology DVT prophylaxis SCDs due to thrombocytopenia and possible paracentesis. GI prophylaxis Protonix Had in-depth discussion with patient in regards to plan of care and frequent hospitalization. Also discussed hospice option due to reoccurring admission and increased pain. Patient declined hospice at this time. Will arrange for standing order for outpatient paracentesis. Patient expresses that she believes this will help prevent readmissions and help her to make her follow-up appointments. Patient does state she feels safe at home. Patient states she is compliant with medications while at home. I performed an examination of the patient and discussed their management with the Nurse Practitioner. I have reviewed the Nurse Practitioner's notes and agree with the documented findings and plan of care
[2018-12-20 17:10] LABS: Glucose,Whole Blood 126 mg/dL (75-99)
--- NOTE | 2018-12-20 17:13 | P.PN ---
Subjective Progress Note Date: 12/20/18 Principal diagnosis: Recurrent Ascites/Hospitalizations Patient states she is nauseated this am. Objective - Vital Signs Vital signs: Vital Signs Temp 98.1 F 12/20/18 14:54 Pulse 62 12/20/18 15:47 Resp 17 12/20/18 14:54 BP 88/44 12/20/18 14:54 Pulse Ox 99 12/20/18 14:54 Intake & Output 12/19/18 12/20/18 12/20/18 18:59 06:59 18:59 Intake Total 480 Output Total 2100 Balance 480 -2100 Weight 105 kg Intake: Oral 480 Output: Gastric Drainage 2100 Other: Voiding Method Toilet Toilet Toilet # Voids 3 2 2 # Bowel Movements 2 2 - Exam Constitutional General appearance: no acute distress - EENT Eyes: EOMI, PERRLA ENT: hearing grossly normal, normal oropharynx - Neck Neck: no lymphadenopathy Thyroid: bilateral: normal size - Respiratory Respiratory: bilateral: CTA - Cardiovascular Rhythm: regular Heart sounds: normal: S1, S2 - Gastrointestinal Right lower quadrant ostomy General gastrointestinal: distended, normal bowel sounds, soft - Integumentary Integumentary: normal - Neurologic Neurologic: CNII-XII intact - Musculoskeletal Musculoskeletal: generalized weakness, strength equal bilaterally - Psychiatric Psychiatric: A&O x's 3, appropriate affect - Labs CBC & Chem 7: 12/20/18 08:26 12/20/18 08:26 Labs: Abnormal Lab Results - Last 24 Hours (Table) 12/19/18 12/20/18 12/20/18 Range/Units 20:10 08:26 08:26 WBC 3.3 L (3.8-10.6) k/uL RBC 3.14 L (3.80-5.40) m/uL Hgb 9.6 L (11.4-16.0) gm/dL Hct 30.5 L (34.0-46.0) % RDW 18.3 H (11.5-15.5) % Plt Count 89 L (150-450) k/uL PT (9.0-12.0) sec INR (<1.2) Creatinine 1.09 H (0.52-1.04) mg/dL Glucose 118 H (74-99) mg/dL POC Glucose (mg/dL) 115 H (75-99) mg/dL Calcium 7.8 L (8.4-10.2) mg/dL Total Bilirubin 1.8 H (0.2-1.3) mg/dL AST 40 H (14-36) U/L Alkaline Phosphatase 170 H (38-126) U/L Total Protein 5.6 L (6.3-8.2) g/dL Albumin 2.4 L (3.5-5.0) g/dL 12/20/18 12/20/18 Range/Units 08:26 11:30 WBC (3.8-10.6) k/uL RBC (3.80-5.40) m/uL Hgb (11.4-16.0) gm/dL Hct (34.0-46.0) % RDW (11.5-15.5) % Plt Count (150-450) k/uL PT 15.8 H (9.0-12.0) sec INR 1.6 H (<1.2) Creatinine (0.52-1.04) mg/dL Glucose (74-99) mg/dL POC Glucose (mg/dL) 130 H (75-99) mg/dL Calcium (8.4-10.2) mg/dL Total Bilirubin (0.2-1.3) mg/dL AST (14-36) U/L Alkaline Phosphatase (38-126) U/L Total Protein (6.3-8.2) g/dL Albumin (3.5-5.0) g/dL Assessment and Plan Plan: Plan: Assessment and Recommentations: 1. Hepatocellular Carcinoma - Status Post Chemoembolization: 2012, 2015 and recent 2018 - Multiple medical opinions from multiple outside hospitals - Currently Monitoring 2. Recurrent abdominal pain related admission: Recurrent admission, despite education and outpatient plan, remediation again provided. - I recommend keeping her on PO Pain medication without IV Bous for breakthrough as she will need to control at home - Recommend PRN standing order Weekly Paracentesis, this is not related to cancer but underlying liver disease, cirrhosis. - Inconsistent and unclear: Likely multifactoral - Recurrent Ascites - Requiring Paracentesis, Recent MRSA Stools, Diarrhea 3. Abdominal Ascites: Status Post 3.6 Liters off abdomen end of Decemeber and 1.5 on 11/18/18 last admission - Recommend PRN Standing order for outpatient paracentesis - Recent Paracentesis was negative for malignant cells Rec: - Patient again "does not feel ready to go home" unclear as we have had many discussions - Social work to investigate home situation and if potential inadequate home/ living situation - Recommend Standing order for paracentesis as outpatient - Re-enforced adherence to outpatient appointments and plan, discussed increased risks for her health with every admission - Does not appear to have progressive cancer, remains on observation off treatment.
[2018-12-20 20:11] LABS: Glucose,Whole Blood 178 mg/dL (75-99)
[2018-12-21] MEDS: MORPHINE SULFATE ER 15 MG TABLET PO SCH ×2 (04:33→12:22)
[2018-12-21 07:04] LABS: Glucose,Whole Blood 89 mg/dL (75-99)
[2018-12-21] MEDS: INSULIN ASPART 100 UNIT/ML 1 ML 10 ML VIAL SQ SCH ×2 (07:39→12:23)
[2018-12-21] MEDS: CHOLESTYRAMINE (WITH SUGAR) 4 GM PACKET PO SCH ×2 (07:56→12:24)
[2018-12-21] MEDS: INSULIN NPH 300 UNIT/3 ML VIAL SQ SCH (07:56)
[2018-12-21] MEDS: SUCRALFATE 1 GM TAB PO SCH ×2 (07:57→12:24)
[2018-12-21] MEDS: PANTOPRAZOLE 40 MG TABLET PO SCH (07:57)
[2018-12-21] MEDS: ONDANSETRON ODT 8 MG TAB.RAPDIS PO SCH ×2 (07:57→16:23)
[2018-12-21] MEDS: DICYCLOMINE 10 MG CAP PO SCH ×2 (07:58→16:24)
[2018-12-21] MEDS: clonazePAM 0.5 MG TAB PO SCH (07:58)
[2018-12-21] MEDS: METOPROLOL TARTRATE 12.5 MG TAB PO SCH (07:58)
[2018-12-21] MEDS: FERROUS SULFATE 325 MG TAB PO SCH (07:58)
[2018-12-21] MEDS: MAGNESIUM OXIDE 400 MG TAB PO SCH (07:58)
[2018-12-21] MEDS: SPIRONOLACTONE 25 MG TAB PO SCH (07:59)
[2018-12-21] MEDS: TORSEMIDE 20 MG TAB PO SCH ×2 (07:59→16:24)
[2018-12-21] MEDS: PREGABALIN 25 MG CAP PO SCH ×2 (07:59→16:23)
[2018-12-21] MEDS: INSULIN REGULAR 100 UNIT/ML VIAL SQ SCH ×2 (08:02→16:05)
[2018-12-21 09:49] LABS: INR 1.6 (<1.2); Prothrombin Time 15.6 sec (9.0-12.0)
[2018-12-21 09:53] LABS: Anisocytosis Slight; HCT 35.4 % (34.0-46.0); Hypochromasia Marked; MCH 30.1 pg (25.0-35.0); MCHC 31.1 g/dL (31.0-37.0); MCV 96.8 fL (80.0-100.0); Macrocytosis Slight; Mean Platelet Volume 8.9; Platelet Count 112 k/uL (150-450); RBC 3.66 m/uL (3.80-5.40); RDW 18.1 % (11.5-15.5); WBC 4.9 k/uL (3.8-10.6)
[2018-12-21 10:13] LABS: Albumin 2.7 g/dL (3.5-5.0); Calcium 7.7 mg/dL (8.4-10.2); Potassium 3.8 mmol/L (3.5-5.1); Total Bilirubin 2.1 mg/dL (0.2-1.3); Total Protein 6.3 g/dL (6.3-8.2)
--- NOTE | 2018-12-21 10:32 | P.PN ---
Subjective This is a pleasant 73-year-old female past medical history significant for liver cancer 2010, frequent paracentesis due to ascites, diabetes mellitus, former nicotine dependence and mildly impaired LV systolic function with basal posterior, basal inferior and basal inferoseptal wall motion hypokinesia. We are following her secondary to elevated troponins noted on admission. The trend is not consistent with an acute event. She denies having any chest pain, shortness of breath, dizziness or palpitations. She underwent ultrasound guided paracentesis yesterday with removal of 2.1 liters. Immediately thereafter her blood pressure was on the low sides most likely secondary to the fluid shift. Blood pressure this morning 97/55 heart rate 72. Currently maintained on lopressor 12.5 mg daily, aldactone 50 mg BID and demadex 20 mg BID. Laboratory data reviewed, hgb 11, plt 112, INR 1.6, sodium 138, potassium 3.8, creatinine 1.27. She continues to feel an uncomfortable tight feeling in her abdomen. Ultrasound of the abdomen for paracentesis currently pending. Currently maintained on lasix 40 mg daily, lopressore 12.5 mg daily and aldactone 50 mg daily. Laboratory data reviewed, WBC 3.0, hemoglobin 9.7, platelets 99, INR 1.4, sodium 136, potassium 5.1, creatinine 0.86, alkaline phosphate 192. Blood pressure 98/47 heart rate 66 afebrile maintaining oxygen saturation on room air. GENERAL: Well-appearing, well-nourished and in no acute distress. NECK: Supple with JVD noted, no thyromegaly. LUNGS: Breath sounds clear to auscultation bilaterally. Respiration equal and unlabored. No wheezes, rales or rhonchi. HEART: Regular rate and rhythm with systolic murmurs, rubs or gallops. S1 and S2 heard. EXTREMITIES: Normal range of motion, non-pitting lower extremity edema. No clubbing or cyanosis. Peripheral pulses intact. ASSESSMENT Recurrent ascites, paracentesis yesterday removed 2.1 liters Mild peak of troponin not indicative of an acute coronary event Cardiomyopathy, previously started on lopressor and losartan however losartan was causing hypotension and has since been discontinued. Diabetes mellitus History of nonalcoholic liver cirrhosis History of hepatocellular carcinoma status post chemoembolization Aortic stenosis, mean 16 mmHg PLAN Blood pressures are stable. Aldactone and demadex to be continued may be decreased if needed, however she has frequent ascites requiring paracentesis. Follow up with Dr. Lux as previously scheduled. We will continue to follow as needed. Nurse Practitioner note has been reviewed, I agree with a documented findings and plan of care. Patient was seen and examined. Objective - Vital Signs Vital signs: Vital Signs Temp 98.5 F 12/21/18 05:00 Pulse 72 12/21/18 05:00 Resp 18 12/21/18 05:00 BP 97/55 12/21/18 05:00 Pulse Ox 98 12/21/18 05:00 Intake & Output 12/20/18 12/21/18 12/21/18 18:59 06:59 18:59 Intake Total 710 Output Total 2100 Balance -2100 710 Weight 103 kg Intake: Oral 710 Output: Gastric Drainage 2100 Other: Voiding Method Toilet Toilet # Voids 2 1 # Bowel Movements 2 - Labs CBC & Chem 7: 12/21/18 08:45 12/21/18 08:45 Labs: Abnormal Lab Results - Last 24 Hours (Table) 12/20/18 12/20/18 12/20/18 Range/Units 11:30 17:09 20:09 RBC (3.80-5.40) m/uL Hgb (11.4-16.0) gm/dL RDW (11.5-15.5) % Plt Count (150-450) k/uL PT (9.0-12.0) sec INR (<1.2) Creatinine (0.52-1.04) mg/dL Glucose (74-99) mg/dL POC Glucose (mg/dL) 130 H 126 H 178 H (75-99) mg/dL Calcium (8.4-10.2) mg/dL Total Bilirubin (0.2-1.3) mg/dL AST (14-36) U/L Alkaline Phosphatase (38-126) U/L Albumin (3.5-5.0) g/dL 12/21/18 12/21/18 12/21/18 Range/Units 08:45 08:45 08:45 RBC 3.66 L (3.80-5.40) m/uL Hgb 11.0 L (11.4-16.0) gm/dL RDW 18.1 H (11.5-15.5) % Plt Count 112 L (150-450) k/uL PT 15.6 H (9.0-12.0) sec INR 1.6 H (<1.2) Creatinine 1.27 H (0.52-1.04) mg/dL Glucose 159 H (74-99) mg/dL POC Glucose (mg/dL) (75-99) mg/dL Calcium 7.7 L (8.4-10.2) mg/dL Total Bilirubin 2.1 H (0.2-1.3) mg/dL AST 47 H (14-36) U/L Alkaline Phosphatase 180 H (38-126) U/L Albumin 2.7 L (3.5-5.0) g/dL
[2018-12-21 11:12] LABS: Eosinophils # (M) 0.15 k/uL (0-0.7); Lymphocytes # (M) 1.81 k/uL (1.0-4.8); Monocytes # (M) 0.34 k/uL (0-1.0); Neutrophils % (M) 53 %; Nucleated Red Blood Cells 0 /100 WBC (0-0); Polychromasia Present; Total Cells Counted 100
[2018-12-21 11:13] LABS: Poikilocytosis (M) Present
[2018-12-21 11:35] LABS: Glucose,Whole Blood 293 mg/dL (75-99)
[2018-12-21 13:11] VITALS: BP 93/45; PULSE 62; RESP 16; TEMP 97.4
[2018-12-21] MEDS ORDERED: ESCITALOPRAM 10 MG TAB PO SCH (14:15)
[2018-12-21] MEDS ORDERED: buPROPion SR 150 MG TABLET.ER PO SCH (14:15)
--- NOTE | 2018-12-21 14:46 | P.DS ---
Providers Date of admission: 12/17/18 23:10 Expected date of discharge: 12/21/18 Attending physician: Artemio Lea Consults: 12/17/18 23:10 Consult Physician Routine Consulting Provider: Ananth Francois Consult Reason/Comments: known Do you want consulting provider notified?: Yes 12/18/18 08:22 Consult Physician Routine Consulting Provider: Yuri Keith Consult Reason/Comments: elevated troponins Do you want consulting provider notified?: Already Contacted 12/18/18 10:12 Consult Physician Routine Consulting Provider: Cem Estrada Consult Reason/Comments: liver CA Do you want consulting provider notified?: Yes Primary care physician: Gilma Martinez Hospital Course: Discharge diagnosis 1. Abdominal pain due to recurring ascites. GI services have been consulted. During previous admission patient did receive paracentesis. Patient Aldactone also increased per GI services to 50 mg daily. Patient previously evaluated by general surgery due to ostomy pain and no surgical intervention was recommended at that time. Patient advised during last admission that she should follow-up with surgeon who originally performed her surgery. Oncology was working on arranging appointment for patient. Patient underwent paracentesis today. 2.2 L off. As needed ordered faxed to IR for process outpatient paracentesis 2. Elevated troponin. EKG completed showing normal sinus rhythm, right bundle branch block. Per cardiology services patient does not appear to be in acute CHF and troponins not consistent with acute coronary syndrome. Patient was given IV Lasix per cardiology. Lasix has since switched to torsemide per cardiology 3. History of MRSA and patient stool. Patient has completed treatment 4. History of nonalcoholic liver cirrhosis 5. History of pancytopenia due to known liver cancer. Secondary to chronic liver cirrhosis 6. History of diverticulitis with ileostomy placement. Patient reports she does have appointment with [place] surgeon who originally performed surgery. Patient was previously evaluated by our surgical team during previous admission 7. Insulin-dependent diabetes mellitus. Previously hemoglobin A1c 7.1. Home resumed 8. Elevated liver enzymes due to known chronic liver malignancy 9. Iron deficiency anemia. Patient maintained on ferrous sulfate 10. Hypotension. Blood pressures in the 90s. Home meds resumed with parameters. We'll continue to monitor closely 11. Coagulopathy secondary to patient's liver disease. Daily PT/INRs have been ordered 12. History of hepatocellular carcinoma status post chemo embolization 2012, 2015 and 2018. Patient seen by oncology 12. Depression. Patient does state she feels more depressed to frequent hospitalizations. Patient denies thoughts of suicide or harm to others. Patient does reports she feels safe at home. Wellbutrin and advised patient to follow-up closely with her PCP Had in-depth discussion with patient in regards to plan of care and frequent hospitalization. Also discussed hospice option due to reoccurring admission and increased pain. Patient declined hospice at this time. Will arrange for standing order for outpatient paracentesis. Patient expresses that she believes this will help prevent readmissions and help her to make her follow-up appointments. Patient does state she feels safe at home. Patient states she is compliant with medications while at home. Hospital course This is a 73-year-old female patient of Dr. Martinez. Patient presented to the emergency room with complaints of lower extremity and abdominal edema. Patient has had multiple frequent admissions to the hospital for same complaints. Patient did undergo paracentesis last week. Patient does have a known past medical history of primary liver cancer, diabetes mellitus, hypertension, MRSA in her stool, anxiety, depression and nonalcoholic liver cirrhosis. Patient was also found to have a mildly elevated troponin. Cardiology services have been consulted. EKG completed showing normal sinus rhythm, right bundle branch block, minimal voltage criteria for LVH may be normal variant. Oncology and GI services have been consulted. At this time patient denies any chest pain. Patient is complaining of abdominal discomfort. Patient does report that her stoma is working properly. Patient was advised upon last discharge to follow- up with surgeon who originally performed lap nettie with ostomy multiple years ago through [facility]. Patient denies any shortness of breath. Patient denies nausea vomiting or diarrhea. Patient denies any urinary burning or frequency. On 12/19/2018 patient is currently resting comfortably in bed. Patient does report that she still having some abdominal discomfort. Ultrasound with possible paracentesis has been ordered per GI services. Acute ischemic event has been ruled out per cardiology. Patient did receive IV Lasix history per cardiology. Patient denies chest pain or shortness breath. Patient denies nausea vomiting or diarrhea. Patient denies any urinary burning or frequency On 12/20/2018 patient is currently resting in bed status post paracentesis. Patient received 2.2 L off. Had in-depth discussion with patient in regards to plan of care and frequent hospitalization. Also discussed hospice option due to reoccurring admission and increased pain. Will arrange for standing order for outpatient paracentesis. Patient expresses that she believes this will help prevent readmissions and help her to make her follow-up appointments. Patient does state she feels safe at home. Patient states she is compliant with medications while at home. At this time patient denies chest pain or shortness of breath. Patient denies nausea vomiting or diarrhea. Patient denies any urinary burning or frequency On 12/21/2018 patient feels improved. Patient states she does feel ready to go home. Patient will go home on torsemide and increased dose of Aldactone. again patient educate on the importnce with following up with consulting providers and PCP. Order recheck P CBC and CMP in 2 days. Patient denies chest pain or shortness breath. Patient denies nausea, vomiting or diarrhea. Patient denies any urinary burning or frequency I performed an examination of the patient and discussed their management with the Nurse Practitioner. I have reviewed the Nurse Practitioner's notes and agree with the documented findings and plan of care Patient Condition at Discharge: Stable Plan - Discharge Summary Discharge Rx Participant: No New Discharge Prescriptions: New buPROPion SR [Wellbutrin SR] 150 mg PO DAILY #30 tablet.er Torsemide [Demadex] 20 mg PO BID@0900,1600 30 Days #60 tab Spironolactone [Aldactone] 50 mg PO BID 30 Days #60 tab Continue Sucralfate [Carafate] 1 gm PO QID Omeprazole [PriLOSEC] 20 mg PO BID Dicyclomine [Bentyl] 10 mg PO TID Ondansetron [Zofran ODT] 8 mg PO Q8HR Magnesium 200 mg PO DAILY Metoprolol Tartrate 12.5 mg PO DAILY Insulin Regular, Human [NovoLIN R] 8 unit SQ AC-TID Insulin NPH Human Isophane [NovoLIN N] 18 unit SQ BID clonazePAM [KlonoPIN] 0.5 mg PO DAILY tab Cholestyramine (with Sugar) [Questran Packet] 4 gm PO TID #21 packet Morphine Sulfate ER [Ms Contin] 15 mg PO Q8H #9 tablet Pregabalin [Lyrica] 25 mg PO TID #9 cap Ferrous Sulfate [Iron (65 MG Elemental)] 325 mg PO BID #60 tab Morphine Sulfate Ir [MSIR] 15 mg PO Q6HR PRN tablet PRN Reason: Pain Discontinued Furosemide [Lasix] 40 mg PO DAILY Spironolactone [Aldactone] 50 mg PO DAILY Discharge Medication List Dicyclomine [Bentyl] 10 mg PO TID 10/23/18 [History] Omeprazole [PriLOSEC] 20 mg PO BID 10/23/18 [History] Sucralfate [Carafate] 1 gm PO QID 10/23/18 [History] Insulin NPH Human Isophane [NovoLIN N] 18 unit SQ BID 10/24/18 [History] Insulin Regular, Human [NovoLIN R] 8 unit SQ AC-TID 10/24/18 [History] Magnesium 200 mg PO DAILY 10/24/18 [History] Metoprolol Tartrate 12.5 mg PO DAILY 10/24/18 [History] Ondansetron [Zofran ODT] 8 mg PO Q8HR 10/24/18 [History] clonazePAM [KlonoPIN] 0.5 mg PO DAILY tab 11/03/18 [Rx] Cholestyramine (with Sugar) [Questran Packet] 4 gm PO TID #21 packet 11/04/18 [ Rx] Morphine Sulfate ER [Ms Contin] 15 mg PO Q8H #9 tablet 11/22/18 [Rx] Pregabalin [Lyrica] 25 mg PO TID #9 cap 11/22/18 [Rx] Ferrous Sulfate [Iron (65 MG Elemental)] 325 mg PO BID #60 tab 12/15/18 [Rx] Morphine Sulfate Ir [MSIR] 15 mg PO Q6HR PRN tablet 12/15/18 [Rx] Spironolactone [Aldactone] 50 mg PO BID 30 Days #60 tab 12/21/18 [Rx] Torsemide [Demadex] 20 mg PO BID@0900,1600 30 Days #60 tab 12/21/18 [Rx] buPROPion SR [Wellbutrin SR] 150 mg PO DAILY #30 tablet.er 12/21/18 [Rx] Follow up Appointment(s)/Referral(s): Wilver Lux MD [STAFF PHYSICIAN] - 12/23/18 3:15 pm Gilma Martinez MD [Primary Care Provider] - 1-2 days Cem Estrada MD [STAFF PHYSICIAN] - 1 Week Ambulatory/Diagnostic Orders: Complete Blood Count w/diff [LAB.AMB] Time Frame: 2 Days, Location: None Selected Comprehensive Metabolic Panel [LAB.AMB] Time Frame: 2 Days, Location: None Selected Activity/Diet/Wound Care/Special Instructions: Activity as tolerated Diet low sodium consistent carb Order placed for as needed paracentesis with interventional radiology her Archana Veliz CMP and CBC ordered for 2 days Discharge Disposition: HOME SELF-CARE
--- NOTE | 2018-12-21 16:12 | P.PN ---
Subjective Progress Note Date: 12/21/18 Principal diagnosis: Non-malignant ascites, pain r/t ostomy site herniation, Hx of HCC In f/u pt is sleeping, she had paracentesis today. Pain at her stoma site is her main c/o. Objective - Vital Signs Vital signs: Vital Signs Temp 97.4 F L 12/21/18 13:00 Pulse 62 12/21/18 13:00 Resp 16 12/21/18 13:00 BP 93/45 12/21/18 13:00 Pulse Ox 100 12/21/18 13:00 Intake & Output 12/20/18 12/21/18 12/21/18 18:59 06:59 18:59 Intake Total 710 Output Total 2100 Balance -2100 710 Weight 103 kg Intake: Oral 710 Output: Gastric Drainage 2099 Other: Voiding Method Toilet Toilet Toilet # Voids 2 1 3 # Bowel Movements 2 - Constitutional General appearance: Present: cooperative, no acute distress, obese - EENT Eyes: Present: anicteric sclerae, EOMI ENT: Present: hearing grossly normal - Respiratory Details: respirations even and unlabored - Gastrointestinal Gastrointestinal Comment(s): large abd General gastrointestinal: Present: soft, tenderness (around stoma) - Neurologic Neurologic: Present: CNII-XII intact - Musculoskeletal Musculoskeletal: Present: generalized weakness, strength equal bilaterally - Psychiatric Psychiatric: Present: A&O x's 3, appropriate affect - Labs CBC & Chem 7: 12/21/18 08:45 12/21/18 08:45 Labs: Abnormal Lab Results - Last 24 Hours (Table) 12/20/18 12/20/18 12/21/18 Range/Units 17:09 20:09 08:45 RBC 3.66 L (3.80-5.40) m/uL Hgb 11.0 L (11.4-16.0) gm/dL RDW 18.1 H (11.5-15.5) % Plt Count 112 L (150-450) k/uL PT (9.0-12.0) sec INR (<1.2) Creatinine (0.52-1.04) mg/dL Glucose (74-99) mg/dL POC Glucose (mg/dL) 126 H 178 H (75-99) mg/dL Calcium (8.4-10.2) mg/dL Total Bilirubin (0.2-1.3) mg/dL AST (14-36) U/L Alkaline Phosphatase (38-126) U/L Albumin (3.5-5.0) g/dL 12/21/18 12/21/18 12/21/18 Range/Units 08:45 08:45 11:34 RBC (3.80-5.40) m/uL Hgb (11.4-16.0) gm/dL RDW (11.5-15.5) % Plt Count (150-450) k/uL PT 15.6 H (9.0-12.0) sec INR 1.6 H (<1.2) Creatinine 1.27 H (0.52-1.04) mg/dL Glucose 159 H (74-99) mg/dL POC Glucose (mg/dL) 293 H (75-99) mg/dL Calcium 7.7 L (8.4-10.2) mg/dL Total Bilirubin 2.1 H (0.2-1.3) mg/dL AST 47 H (14-36) U/L Alkaline Phosphatase 180 H (38-126) U/L Albumin 2.7 L (3.5-5.0) g/dL Assessment and Plan (1) Abdominal pain Narrative/Plan: Pt has been extensively worked up for this. Her pain is increased with ascites , some relieved with paracentesis. Despite pt missing all appts to establish care in the office a standing order was sent to Interventional Radiology for paracentesis. Pt was told to contact them for paracentesis outpatient BEFORE pain is so severe she has to be admitted. Pt was told to see the Surgeon in [place] for peristomal hernia repair (we set that appt up as well) as this is also an area of pain for her. We discussed that we will not provide pain meds unless she is seen in office. We will not sched another appt for her she will be responsible for making an appt to be seen by one of our Oncologists as she has not kept 5 previously scheduled appts. Pt will need to keep in contact with the Physician who does her chemoembolizations as that procedure is not done in this area. This has been the mainstay of treatment for her. Currently there is no evidence of HCC (AFP was normal, no new symptoms). No systemic treatment is planned but, she needs to establish and stay on follow up as directed by the Oncologist. All of this was explained to pt. Did speak with daughter on phone as well. Both verbalized understanding Current Visit: Yes Status: Acute Priority: High Code(s): R10.9 - UNSPECIFIED ABDOMINAL PAIN SNOMED Code(s): 07222162 (2) History of liver cancer Current Visit: Yes Status: Acute Code(s): Z85.05 - PERSONAL HISTORY OF MALIGNANT NEOPLASM OF LIVER SNOMED Code(s): 752590880 (3) Ascites Current Visit: Yes Status: Chronic Priority: Medium Code(s): R18.8 - OTHER ASCITES SNOMED Code(s): 277411155 Plan: Attests: I have performed H&P and developed impression and plan of care of patient, discussed with dictator. I agree with dictated note, documented as a scribe.
== END 2018-12-21 16:30 | disposition home health service (06) | DRG 433 ==
LOC: EC 20:09 → 3SCARD 23:10 → 3NMEDONC 12-18 20:35
PROVIDERS: ADMIT Internal Medicine; ATTEND Internal Medicine
PROC: 0W9G3ZZ Drainage of Peritoneal Cavity, Percutaneous Approach (ICD-10-PCS; principal; 2018-12-20)
DX: K74.60 Unspecified cirrhosis of liver (principal); R18.8 Other ascites; I42.9 Cardiomyopathy, unspecified; D68.4 Acquired coagulation factor deficiency; C22.0 Liver cell carcinoma; I95.9 Hypotension, unspecified; D69.6 Thrombocytopenia, unspecified; E11.9 Type 2 diabetes mellitus without complications; I35.0 Nonrheumatic aortic (valve) stenosis; I45.10 Unspecified right bundle-branch block; D50.9 Iron deficiency anemia, unspecified; G89.29 Other chronic pain; K43.5 Parastomal hernia without obstruction or gangrene; I10 Essential (primary) hypertension; F41.9 Anxiety disorder, unspecified; F32.9 Major depressive disorder, single episode, unspecified; E66.9 Obesity, unspecified; Z68.33 Body mass index [BMI] 33.0-33.9, adult; Z79.4 Long term (current) use of insulin; Z79.891 Long term (current) use of opiate analgesic; Z79.899 Other long term (current) drug therapy; Z86.14 Personal history of Methicillin resistant Staphylococcus aureus infection; Z90.49 Acquired absence of other specified parts of digestive tract; Z93.2 Ileostomy status; Z92.21 Personal history of antineoplastic chemotherapy; Z98.891 History of uterine scar from previous surgery; Z90.710 Acquired absence of both cervix and uterus; Z98.890 Other specified postprocedural states; Z87.891 Personal history of nicotine dependence; Z82.49 Family history of ischemic heart disease and other diseases of the circulatory system; Z88.5 Allergy status to narcotic agent; Z88.8 Allergy status to other drugs, medicaments and biological substances
CPT/HCPCS: 36415; 49083; 80053; 82550; 82553; 83735; 83880; 84100; 84484; 85025; 85610; 85730; 93005; 96374; 99285

== ENCOUNTER 2018-12-30 09:33 | Emergency (ER) | payer MEDICARE ==
--- NOTE | 2018-12-30 09:56 | ED ---
General Adult HPI - General Chief complaint: Abdominal Pain Stated complaint: abd pain, sudden weight loss Time Seen by Provider: 12/30/18 09:39 Source: patient, RN notes reviewed Mode of arrival: ambulatory Limitations: no limitations - History of Present Illness Initial comments: 73-year-old female presents to the emergency department for a chief complaint of abdominal pain. Patient has a history of liver cancer with last chemomobilization treatment approximately one month ago. Patient has extensive abdominal surgical history including bowel resection of entire colon with ileostomy due to diverticulitis, appendectomy, cholecystectomy, hysterectomy. Patient recently admitted for abdominal pain and had paracentesis with 2 L of fluid removed. Patient states she had an appointment with Dr. Francois in half an hour but decided to come to the emergency department instead. She states this pain has been ongoing for 3 days. She states she has been dry heaving and when she dry heaves the pain recurs. She states after that the pain resolves and she has nausea. She states she has lost 34 pounds in 10 days. Patient states she has not been eating much as normal on the past 3 days because of this nausea. Patient has no other complaints at this time including shortness of breath, chest pain, headache, or visual changes. - Related Data Home Medications Medication Instructions Recorded Confirmed Dicyclomine [Bentyl] 10 mg PO TID 10/23/18 12/30/18 Omeprazole [PriLOSEC] 20 mg PO BID 10/23/18 12/30/18 Sucralfate [Carafate] 1 gm PO QID 10/23/18 12/30/18 Insulin NPH Human Isophane 18 unit SQ QAM 10/24/18 12/30/18 [NovoLIN N] Insulin Regular, Human [NovoLIN R] 8 unit SQ AC-TID 10/24/18 12/30/18 Metoprolol Tartrate 12.5 mg PO DAILY 10/24/18 12/30/18 Ondansetron [Zofran ODT] 8 mg PO Q8HR 10/24/18 12/30/18 Insulin NPH Human Isophane 16 unit SQ HS 12/30/18 12/30/18 [NovoLIN N] Lactulose 20 gm PO BID 12/30/18 12/30/18 Magnesium Oxide [William] 500 mg PO DAILY 12/30/18 12/30/18 Previous Rx's Medication Instructions Recorded clonazePAM [KlonoPIN] 0.5 mg PO DAILY tab 11/03/18 Cholestyramine (with Sugar) 4 gm PO TID #21 packet 11/04/18 [Questran Packet] Morphine Sulfate ER [Ms Contin] 15 mg PO Q8H #9 tablet 11/22/18 Pregabalin [Lyrica] 25 mg PO TID #9 cap 11/22/18 Ferrous Sulfate [Iron (65 MG 325 mg PO BID #60 tab 12/15/18 Elemental)] Morphine Sulfate Ir [MSIR] 15 mg PO Q6HR PRN tablet 12/15/18 Spironolactone [Aldactone] 50 mg PO BID 30 Days #60 tab 12/21/18 Torsemide [Demadex] 20 mg PO BID@0900,1600 30 Days #60 12/21/18 tab buPROPion SR [Wellbutrin SR] 150 mg PO DAILY #30 tablet.er 12/21/18 Sulfamethoxazole/Trimethoprim 1 each PO BID 10 Days tablet 12/30/18 [Bactrim DS 800-160 mg] Allergies Allergy/AdvReac Type Severity Reaction Status Date / Time GREG Inhibitors Allergy Cough Verified 12/30/18 10:04 amlodipine Allergy Rash/Hives Verified 12/30/18 10:04 oxycodone Allergy Rash/Hives Verified 12/30/18 10:04 Penicillins Allergy Rash/Hives Verified 12/30/18 10:04 hydromorphone [From Dilaudid] AdvReac Unknown Verified 12/30/18 10:04 sodium dodecyclbenzene Allergy Rash/Hives Uncoded 12/30/18 09:37 sulfonate Review of Systems ROS Statement: Those systems with pertinent positive or pertinent negative responses have been documented in the HPI. ROS Other: All systems not noted in ROS Statement are negative. Past Medical History Past Medical History: Cancer, Diabetes Mellitus, Hypertension, Liver Disease Additional Past Medical History / Comment(s): liver ca- had chemo 10-03-18,past ascities-paracentesis, ulcer(sx),diveticulitis, anx/depression History of Any Multi-Drug Resistant Organisms: MRSA Date of last positivie culture/infection: 10/23/18 MDRO Source:: MRSA STOOL Past Surgical History: Appendectomy, Bowel Resection, Section, Cholecystectomy, Hysterectomy, Tonsillectomy Additional Past Surgical History / Comment(s): rt rotator cuff repair,carpal tunnel release .liver bx,ilieostomy ,paracentesis, chemo, embolizations of liver tumors Past Anesthesia/Blood Transfusion Reactions: No Reported Reaction Past Psychological History: Anxiety, Depression Smoking Status: Former smoker Past Alcohol Use History: None Reported Past Drug Use History: None Reported - Past Family History Mother History Unknown: Yes Family Medical History: Congestive Heart Failure (CHF) General Exam Limitations: no limitations General appearance: alert, in no apparent distress Head exam: Present: atraumatic, normocephalic, normal inspection Eye exam: Present: normal appearance, PERRL, EOMI. Absent: scleral icterus, conjunctival injection, periorbital swelling ENT exam: Present: normal exam, mucous membranes moist Neck exam: Present: normal inspection, full ROM. Absent: tenderness, meningismus, lymphadenopathy Respiratory exam: Present: normal lung sounds bilaterally. Absent: respiratory distress, wheezes, rales, rhonchi, stridor Cardiovascular Exam: Present: regular rate, normal rhythm, normal heart sounds. Absent: systolic murmur, diastolic murmur, rubs, gallop, clicks GI/Abdominal exam: Present: soft, tenderness (tenderness to generalized abdomen , worse in RUQ and RLQ. ), normal bowel sounds. Absent: distended, guarding, rebound, rigid Neurological exam: Present: alert, oriented X3, CN II-XII intact Psychiatric exam: Present: normal affect, normal mood Course Vital Signs 12/30/18 09:35 Temperature 98.6 F Pulse Rate 59 L Respiratory 20 Rate Blood Pressure 109/69 O2 Sat by Pulse 99 Oximetry Medical Decision Making - Medical Decision Making 73-year-old female presents to the emergency department for a chief complaint of abdominal pain. CBC is unremarkable. CMP shows a creatinine of 1.25, fluids given. Urine does have 142 white cells. This is likely the cause of patient's abdominal pain. CT was ordered due to extensive surgical history. This is present but diminished from October. Nonspecific inflammatory changes noted. Ostomy noted. Patient missed her appointment with [facility] today but will reschedule. Patient given IV antibiotics here. She was well-appearing, ready to go home. Pain is controlled. She will take Bactrim at home. Discussed returning if she has any worsening symptoms. - Lab Data Result diagrams: 12/30/18 10:15 02/15/19 10:15 Lab Results 12/30/18 12/30/18 12/30/18 Range/Units 10:15 10:15 10:36 WBC 4.8 (3.8-10.6) k/uL RBC 4.18 (3.80-5.40) m/uL Hgb 13.2 (11.4-16.0) gm/dL Hct 40.3 (34.0-46.0) % MCV 96.4 (80.0-100.0) fL MCH 31.6 (25.0-35.0) pg MCHC 32.8 (31.0-37.0) g/dL RDW 18.4 H (11.5-15.5) % Plt Count 94 L (150-450) k/uL Neutrophils % 68 % Lymphocytes % 19 % Monocytes % 7 % Eosinophils % 4 % Basophils % 1 % Neutrophils # 3.3 (1.3-7.7) k/uL Lymphocytes # 0.9 L (1.0-4.8) k/uL Monocytes # 0.3 (0-1.0) k/uL Eosinophils # 0.2 (0-0.7) k/uL Basophils # 0.0 (0-0.2) k/uL Hypochromasia Slight Anisocytosis Slight Macrocytosis Slight Sodium 139 (137-145) mmol/L Potassium 3.8 (3.5-5.1) mmol/L Chloride 100 (98-107) mmol/L Carbon Dioxide 28 (22-30) mmol/L Anion Gap 11 mmol/L BUN 20 H (7-17) mg/dL Creatinine 1.25 H (0.52-1.04) mg/dL Est GFR (CKD-EPI)AfAm 50 (>60 ml/min/1.73 sqM) Est GFR (CKD-EPI)NonAf 44 (>60 ml/min/1.73 sqM) Glucose 202 H (74-99) mg/dL Calcium 8.7 (8.4-10.2) mg/dL Total Bilirubin 2.6 H (0.2-1.3) mg/dL AST 51 H (14-36) U/L ALT 34 (9-52) U/L Alkaline Phosphatase 223 H (38-126) U/L Total Protein 7.4 (6.3-8.2) g/dL Albumin 3.4 L (3.5-5.0) g/dL Amylase 42 (30-110) U/L Lipase 24 (23-300) U/L Urine Color Yellow Urine Appearance Cloudy H (Clear) Urine pH 5.0 (5.0-8.0) Ur Specific [place] 1.007 (1.001-1.035) Urine Protein Trace H (Negative) Urine Glucose (UA) Negative (Negative) Urine Ketones Negative (Negative) Urine Blood Moderate H (Negative) Urine Nitrite Negative (Negative) Urine Bilirubin Negative (Negative) Urine Urobilinogen <2.0 (<2.0) mg/dL Ur Leukocyte Esterase Large H (Negative) Urine RBC 115 H (0-5) /hpf Urine WBC 142 H (0-5) /hpf Urine WBC Clumps Few H (None) /hpf Ur Squamous Epith Cells 1 (0-4) /hpf Urine Bacteria Moderate H (None) /hpf Hyaline Casts 18 H (0-2) /lpf Urine Mucus Rare H (None) /hpf Disposition Clinical Impression: Urinary tract infection Disposition: HOME SELF-CARE Condition: Good Instructions (If sedation given, give patient instructions): Urinary Tract Infection in Women (ED) Additional Instructions: Please take antibiotic as directed. Please follow-up with primary care in 1-2 days. Return here to the emergency department if symptoms worsen. Prescriptions: Sulfamethoxazole/Trimethoprim [Bactrim DS 800-160 mg] 1 each PO BID 10 Days tablet Is patient prescribed a controlled substance at d/c from ED?: No Referrals: Gilma Martinez MD [Primary Care Provider] - 1-2 days Ananth Francois MD [STAFF PHYSICIAN] - 1-2 days Time of Disposition: 13:15
[2018-12-30] MEDS ORDERED: SODIUM CHLORIDE 0.9% 500 ML 500 ML IV STA (10:03)
[2018-12-30] MEDS ORDERED: ONDANSETRON 4 MG/2 ML VIAL IVP STA (10:04)
[2018-12-30] MEDS ORDERED: MORPHINE SULFATE 4 MG/ML SYRINGE IVP STA ×2 (10:04→13:31)
[2018-12-30 10:33] LABS: Anisocytosis Slight; Basophils % (A) 1 %; Eosinophils # (A) 0.2 k/uL (0-0.7); Eosinophils % (A) 4 %; HCT 40.3 % (34.0-46.0); HGB 13.2 gm/dL (11.4-16.0); Hypochromasia Slight; Lymphocytes # (A) 0.9 k/uL (1.0-4.8); Lymphocytes % (A) 19 %; MCH 31.6 pg (25.0-35.0); MCHC 32.8 g/dL (31.0-37.0); MCV 96.4 fL (80.0-100.0); Macrocytosis Slight; Mean Platelet Volume 8.9; Monocytes # (A) 0.3 k/uL (0-1.0); Monocytes % (A) 7 %; Neutrophils # (A) 3.3 k/uL (1.3-7.7); Neutrophils % (A) 68 %; RBC 4.18 m/uL (3.80-5.40); RDW 18.4 % (11.5-15.5); WBC 4.8 k/uL (3.8-10.6)
[2018-12-30 10:34] LABS: Platelet Count 94 k/uL (150-450)
[2018-12-30 10:50] LABS: Albumin 3.4 g/dL (3.5-5.0); Calcium 8.7 mg/dL (8.4-10.2); Potassium 3.8 mmol/L (3.5-5.1); Total Bilirubin 2.6 mg/dL (0.2-1.3); Total Protein 7.4 g/dL (6.3-8.2)
[2018-12-30 11:23] LABS: Appearance,Urine Cloudy (Clear); Bacteria,Urine Moderate /hpf; Bilirubin,Urine Negative (Negative); Blood,Urine Moderate (Negative); Color,Urine Yellow; Glucose,Urine (UA) Negative (Negative); Hyaline Casts,Urine 18 /lpf (0-2); Ketones,Urine Negative (Negative); Leukocyte Esterase,Urine Large (Negative); Mucus,Urine Rare /hpf; Nitrite,Urine Negative (Negative); Protein,Urine Trace (Negative); RBC,Urine 115 /hpf (0-5); Specific Gravity,Urine 1.007 (1.001-1.035); Squamous Epithelial Cell,Urine 1 /hpf (0-4); Urobilinogen,Urine <2.0 mg/dL (<2.0); WBC,Urine 142 /hpf (0-5)
--- NOTE | 2018-12-30 12:46 | CT ---
EXAMINATION TYPE: CT abdomen pelvis wo con DATE OF EXAM: 12/30/2018 COMPARISON: 11/11/2018 INDICATION: Abdominal pain and sudden weight loss DLP: 671.5 mGycm, Automated exposure control for dose reduction was used. CONTRAST: 0 mL of Isovue 300. Due to elevated renal function tests Study performed without Oral Contrast TECHNIQUE: Axial images were obtained from above the diaphragm to the pubic rami in the axial plane a t 5 mm thick sections. Reconstructed images are reviewed on the computer in the coronal plane. FINDINGS: Limited CT sections are obtained the lung bases. The lung bases are clear. Coronary artery calcific ations present. CT ABDOMEN: Ascites is present adjacent to liver and spleen. Small amount of paracolic gutter fluid i s present on the right. Small amount of fluid is within the dependent portion of the pelvis. Some thi ckening of the stomach is not excluded. Discrete masses are not identified on noncontrast study. Liver: Liver appears small and somewhat lobular. Spleen: Normal. There appear to be varices adjacent to the spleen and epigastric region. Pancreas: Atrophic Adrenal glands: The adrenal glands are normal. Gallbladder: Normal Kidneys: No masses are evident. No hydronephrosis is present. No cysts are present. No renal stone s are evident. Aorta: Vascular calcification is within the aorta. Inferior vena cava: Normal. CT PELVIS: There is some nonspecific inflammatory change within the mid abdomen mesentery. There is a right anterior abdominal wall hernia adjacent to the ostomy site. This contains a loop of bowel. No dilated loops of bowel are evident. Study is without oral contrast limiting bowel evaluation. The colon is surgically absent. Rectal stump contains some debris. Appendix: Not identified Urinary bladder: Normal. Genitourinary structures: Uterus and ovaries are not identified. Osseous structures: No suspicious lytic or sclerotic lesions. Facet degenerative changes are within t he lumbar spine IMPRESSIONS: 1. Ascites. This appears diminished from October 2018 2. Nonspecific inflammatory type change mid mesentery. 3. There appears to be an additional loop of bowel within the ostomy opening in the anterior right l ower quadrant. This however is stable from comparison. This could be a surgical plan the ostomy site.
[2018-12-30] MEDS ORDERED: SODIUM CHLORIDE 0.9% 1,000 ML IV STA (12:53)
[2018-12-30 15:12] VITALS: BP 101/49; PULSE 65; RESP 16; TEMP 99.1
== END 2018-12-30 15:20 | disposition home or self-care (01) ==
LOC: EC 09:33
DX: N39.0 Urinary tract infection, site not specified (principal); R63.4 Abnormal weight loss; R11.2 Nausea with vomiting, unspecified; E11.9 Type 2 diabetes mellitus without complications; I10 Essential (primary) hypertension; Z85.05 Personal history of malignant neoplasm of liver; Z92.21 Personal history of antineoplastic chemotherapy; Z98.890 Other specified postprocedural states; Z87.19 Personal history of other diseases of the digestive system; Z86.14 Personal history of Methicillin resistant Staphylococcus aureus infection; Z90.49 Acquired absence of other specified parts of digestive tract; Z90.710 Acquired absence of both cervix and uterus; Z93.2 Ileostomy status; Z87.891 Personal history of nicotine dependence; Z79.4 Long term (current) use of insulin; Z79.899 Other long term (current) drug therapy; Z88.8 Allergy status to other drugs, medicaments and biological substances; Z88.5 Allergy status to narcotic agent; Z88.0 Allergy status to penicillin
CPT/HCPCS: 36415; 80053; 82150; 83690; 85025; 81001; 87040; 87086; 74176; 99285; 96365; 96375 ×2; 96376; J2270; J2405; J0696; 87077; 87186

== ENCOUNTER 2019-01-04 15:13 | Inpatient (IN) | payer MEDICARE ==
[2019-01-04] MEDS ORDERED: SODIUM CHLORIDE 0.9% 1,000 ML IV STA (15:42)
[2019-01-04] MEDS ORDERED: SODIUM CHLORIDE 0.9% 500 ML 500 ML IV STA (15:42)
[2019-01-04] MEDS ORDERED: ONDANSETRON 4 MG/2 ML VIAL IVP STA (15:42)
--- NOTE | 2019-01-04 16:03 | ED ---
General Adult HPI - General Chief complaint: Abdominal Pain Stated complaint: Recheck,Urogenital Time Seen by Provider: 01/04/19 15:22 Source: patient, RN notes reviewed, old records reviewed Mode of arrival: wheelchair Limitations: no limitations - History of Present Illness Initial comments: Chief complaint and history of present illness is a 73-year-old female who was sent back to the emergency room by her family doctor. The patient was in emergency room approximately 5 days ago. At that time she had abdominal discomfort and she was positive for urinary tract infection. The patient was discharged home after rehydration and she was feeling better and placed on Bactrim. Since that time the culture and sensitivities has demonstrated that she is growing S3 she has a callus and MRSA. Sensitivity shows vancomycin to be effective against both. The patient's attending, Dr. Kurtz 1 the patient comes emergency room, can rehydration, repeat labs and started on IV antibiotics. This be done. The patient will be admitted to Dr. Lea. - Related Data Home Medications Medication Instructions Recorded Confirmed Dicyclomine [Bentyl] 10 mg PO TID 10/23/18 01/04/19 Omeprazole [PriLOSEC] 20 mg PO BID 10/23/18 01/04/19 Sucralfate [Carafate] 1 gm PO QID 10/23/18 01/04/19 Insulin NPH Human Isophane 18 unit SQ QAM 10/24/18 01/04/19 [NovoLIN N] Insulin Regular, Human [NovoLIN R] 8 unit SQ AC-TID 10/24/18 01/04/19 Metoprolol Tartrate 12.5 mg PO DAILY 10/24/18 01/04/19 Ondansetron [Zofran ODT] 8 mg PO Q8HR PRN 10/24/18 01/04/19 Insulin NPH Human Isophane 16 unit SQ HS 12/30/18 01/04/19 [NovoLIN N] Lactulose 20 gm PO BID 12/30/18 01/04/19 Magnesium Oxide [William] 500 mg PO DAILY 12/30/18 01/04/19 Sulfamethoxazole/Trimethoprim 1 tab PO BID 01/04/19 01/04/19 [Bactrim DS 800-160 mg] Previous Rx's Medication Instructions Recorded clonazePAM [KlonoPIN] 0.5 mg PO DAILY tab 11/03/18 Morphine Sulfate ER [Ms Contin] 15 mg PO Q8H #9 tablet 11/22/18 Pregabalin [Lyrica] 25 mg PO TID #9 cap 11/22/18 Ferrous Sulfate [Iron (65 MG 325 mg PO BID #60 tab 12/15/18 Elemental)] Morphine Sulfate Ir [MSIR] 15 mg PO Q6HR PRN tablet 12/15/18 Spironolactone [Aldactone] 50 mg PO BID 30 Days #60 tab 12/21/18 Torsemide [Demadex] 20 mg PO BID@0900,1600 30 Days #60 12/21/18 tab buPROPion SR [Wellbutrin SR] 150 mg PO DAILY #30 tablet.er 12/21/18 Allergies Allergy/AdvReac Type Severity Reaction Status Date / Time GREG Inhibitors Allergy Cough Verified 01/04/19 15:35 amlodipine Allergy Rash/Hives Verified 01/04/19 15:35 oxycodone Allergy Rash/Hives Verified 01/04/19 15:35 Penicillins Allergy Rash/Hives Verified 01/04/19 15:35 hydromorphone [From Dilaudid] AdvReac Unknown Verified 01/04/19 15:35 sodium dodecyclbenzene Allergy Rash/Hives Uncoded 12/30/18 09:37 sulfonate Review of Systems ROS Statement: Those systems with pertinent positive or pertinent negative responses have been documented in the HPI. Review of systems. The patient denies any headache no visual acuity changes no difficulty swallowing. She has had nausea vomiting and dry heaving so she stopped drinking so she wouldn't vomit. She reports she's had normal bowel movements and normal urinary frequency. Patient denies any rashes no chest pain no shortness of breath. No neuro deficits. All systems were reviewed. Past medical problems including liver cancer first diagnosed in 2010. The patient had repeat chemotherapy in September of last year. The patient has insulin-dependent diabetes mellitus, hypertension. Patient has had a history of ascites with paracentesis. Bleeding stomach ulcer treated with a staple. Past history of diverticulitis with removal of the colon. Also history of anxiety and depression. She's had history of MRSA infections in the past, in the stool. Other surgeries include appendectomy, cholecystectomy hysterectomy and tonsillectomy. The patient's also had a right rotator cuff repair carpal tunnel release, liver biopsy, ileostomy, with embolizations of the liver tumors. The patient's psychological history is includes anxiety and depression in the past she quit smoking after he just 16 years. No apparent alcohol use. Family history no cancers or report. ALLERGIES include greg inhibitors, amlodipine, oxycodone, penicillins, hydromorphone. ROS Other: All systems not noted in ROS Statement are negative. Past Medical History Past Medical History: Cancer, Diabetes Mellitus, Hypertension, Liver Disease Additional Past Medical History / Comment(s): liver ca- had chemo 10-03-18,past ascities-paracentesis, ulcer(sx),diveticulitis, anx/depression History of Any Multi-Drug Resistant Organisms: MRSA Date of last positivie culture/infection: 12/30/18 MDRO Source:: MRSA URINE Past Surgical History: Appendectomy, Bowel Resection, Section, Cholecystectomy, Hysterectomy, Tonsillectomy Additional Past Surgical History / Comment(s): rt rotator cuff repair,carpal tunnel release .liver bx,ilieostomy ,paracentesis, chemo, embolizations of liver tumors Past Anesthesia/Blood Transfusion Reactions: No Reported Reaction Past Psychological History: Anxiety, Depression Smoking Status: Never smoker Past Alcohol Use History: None Reported Past Drug Use History: None Reported - Past Family History Mother History Unknown: Yes Family Medical History: Congestive Heart Failure (CHF) General Exam - General Exam Comments Initial Comments: General: The patient is awake and alert, he because she states she feels dehydrated, has been vomiting several times per day for the past several days. Afraid to drink water because she'll vomit. Feels though she might be dehydrated. Recently diagnosed urinary tract infection. The culture of that urine showed positive for MRSA and E Faecalis . Vital signs are temperature 98.7 pulse 56 respiratory rate 18 pulse ox 99% room air blood pressure 114/61. Eye: Pupils are equal, round and reactive to light, extra-ocular movements are intact ; there is normal conjunctiva bilaterally. No signs of icterus. Ears, nose, mouth and throat: There are moist mucous membranes and no oral lesions. Neck: The neck is supple, there is no tenderness or JVD. No anterior cervical lymphadenopathy. No evidence of any meningeal irritation with neck flexion and extension. Cardiovascular: There is a regular rate and rhythm. No murmur, rub or gallop is appreciated. Respiratory: Lungs are clear to auscultation, respirations are non-labored, breath sounds are equal. No wheezes, stridor, rales, or rhonchi. Gastrointestinal: Soft, mildly tender to deep palpation to the epigastric region. The patient reports she's had dry heaves for 2 days. Her ileostomy is functioning well. No blood noted. No difficulty urinating. Active bowel sounds. There is no tenderness to palpation in the midline. There is no obvious deformity. No rashes noted. Musculoskeletal: Normal ROM, no tenderness, There is no pedal edema. There is no calf tenderness or swelling. Sensation intact. Pulses equal bilaterally 2+. Neurological: CN II-XII intact, There are no obvious motor or sensory deficits. Coordination appears grossly intact. Speech is normal. No focal or lateralizing findings. Skin: Skin is warm and dry and no rashes or lesions are noted. Psychiatric: Cooperative, appropriate mood & affect, normal judgment. Denies depression. Past history of anxiety and depression. Limitations: no limitations Course Vital Signs 01/04/19 01/04/19 01/04/19 15:15 16:45 17:20 Temperature 98.7 F Pulse Rate 56 L 65 53 L Respiratory 18 20 18 Rate Blood Pressure 114/61 95/42 96/46 O2 Sat by Pulse 99 99 99 Oximetry 01/04/19 17:55 Temperature Pulse Rate 59 L Respiratory 20 Rate Blood Pressure 108/48 O2 Sat by Pulse 99 Oximetry Medical Decision Making - Medical Decision Making Medical decision making; I discussed the case with the patient's attending Dr. Kurtz. The patient will be admitted ,continued on antibiotics, vancomycin will be dosed by pharmacy. The patient received IV hydration and will be admitted to Dr. Lea. Lab work shows white count 4.9 hemoglobin 12 hematocrit 37. Platelets are 70. Potassium is 4.0. BUN 25 creatinine 1.46 with a GFR 36. Her creatinine and GFR slightly worse today than they were 5 days ago. Glucose is 129. Total bilirubin 1.4, alk phos face 239. AST mildly elevated at 49. Amylase lipase normal limits. Urine showed small leuk esterase positive. 2 red cells, 2 white cells, occasional bacteria. Plasma lactic acid normal at 1.6. The patient is receiving IV fluids, patient reports her blood pressures normally in the high 90s systolic. Patient alert, oriented. Requesting pain medication for chronic pain. States she takes morphine at home. She was advised that were waiting for her blood pressure to come up a little and again she says her blood pressures is normally in the mid 90s. The case discussed Dr. Lea patient admitted to his service she'll be continued medications on vancomycin until blood cultures are returned. - Lab Data Result diagrams: 01/04/19 16:18 01/04/19 16:18 Lab Results 01/04/19 01/04/19 01/04/19 Range/Units 15:45 16:18 16:18 WBC 4.9 (3.8-10.6) k/uL RBC 3.90 (3.80-5.40) m/uL Hgb 12.3 (11.4-16.0) gm/dL Hct 37.8 (34.0-46.0) % MCV 96.9 (80.0-100.0) fL MCH 31.5 (25.0-35.0) pg MCHC 32.5 (31.0-37.0) g/dL RDW 19.1 H (11.5-15.5) % Plt Count 70 L (150-450) k/uL Neutrophils % 67 % Lymphocytes % 21 % Monocytes % 6 % Eosinophils % 4 % Basophils % 1 % Neutrophils # 3.3 (1.3-7.7) k/uL Lymphocytes # 1.0 (1.0-4.8) k/uL Monocytes # 0.3 (0-1.0) k/uL Eosinophils # 0.2 (0-0.7) k/uL Basophils # 0.0 (0-0.2) k/uL Anisocytosis Slight Macrocytosis Slight Sodium 136 L (137-145) mmol/L Potassium 4.0 (3.5-5.1) mmol/L Chloride 104 (98-107) mmol/L Carbon Dioxide 24 (22-30) mmol/L Anion Gap 8 mmol/L BUN 25 H (7-17) mg/dL Creatinine 1.46 H (0.52-1.04) mg/dL Est GFR (CKD-EPI)AfAm 42 (>60 ml/min/1.73 sqM) Est GFR (CKD-EPI)NonAf 36 (>60 ml/min/1.73 sqM) Glucose 129 H (74-99) mg/dL Plasma Lactic Acid Carlos (0.7-2.0) mmol/L Calcium 8.8 (8.4-10.2) mg/dL Total Bilirubin 1.4 H (0.2-1.3) mg/dL AST 49 H (14-36) U/L ALT 41 (9-52) U/L Alkaline Phosphatase 239 H (38-126) U/L Total Protein 7.1 (6.3-8.2) g/dL Albumin 3.2 L (3.5-5.0) g/dL Amylase 58 (30-110) U/L Lipase 18 L (23-300) U/L Urine Color Yellow Urine Appearance Clear (Clear) Urine pH 5.0 (5.0-8.0) Ur Specific Ogilvie 1.006 (1.001-1.035) Urine Protein Negative (Negative) Urine Glucose (UA) Negative (Negative) Urine Ketones Negative (Negative) Urine Blood Negative (Negative) Urine Nitrite Negative (Negative) Urine Bilirubin Negative (Negative) Urine Urobilinogen <2.0 (<2.0) mg/dL Ur Leukocyte Esterase Small H (Negative) Urine RBC 2 (0-5) /hpf Urine WBC 2 (0-5) /hpf Ur Squamous Epith Cells <1 (0-4) /hpf Urine Bacteria Occasional H (None) /hpf Hyaline Casts 5 H (0-2) /lpf Urine Mucus Rare H (None) /hpf 01/04/19 Range/Units 16:18 WBC (3.8-10.6) k/uL RBC (3.80-5.40) m/uL Hgb (11.4-16.0) gm/dL Hct (34.0-46.0) % MCV (80.0-100.0) fL MCH (25.0-35.0) pg MCHC (31.0-37.0) g/dL RDW (11.5-15.5) % Plt Count (150-450) k/uL Neutrophils % % Lymphocytes % % Monocytes % % Eosinophils % % Basophils % % Neutrophils # (1.3-7.7) k/uL Lymphocytes # (1.0-4.8) k/uL Monocytes # (0-1.0) k/uL Eosinophils # (0-0.7) k/uL Basophils # (0-0.2) k/uL Anisocytosis Macrocytosis Sodium (137-145) mmol/L Potassium (3.5-5.1) mmol/L Chloride (98-107) mmol/L Carbon Dioxide (22-30) mmol/L Anion Gap mmol/L BUN (7-17) mg/dL Creatinine (0.52-1.04) mg/dL Est GFR (CKD-EPI)AfAm (>60 ml/min/1.73 sqM) Est GFR (CKD-EPI)NonAf (>60 ml/min/1.73 sqM) Glucose (74-99) mg/dL Plasma Lactic Acid Carlos 1.6 (0.7-2.0) mmol/L Calcium (8.4-10.2) mg/dL Total Bilirubin (0.2-1.3) mg/dL AST (14-36) U/L ALT (9-52) U/L Alkaline Phosphatase (38-126) U/L Total Protein (6.3-8.2) g/dL Albumin (3.5-5.0) g/dL Amylase (30-110) U/L Lipase (23-300) U/L Urine Color Urine Appearance (Clear) Urine pH (5.0-8.0) Ur Specific Ogilvie (1.001-1.035) Urine Protein (Negative) Urine Glucose (UA) (Negative) Urine Ketones (Negative) Urine Blood (Negative) Urine Nitrite (Negative) Urine Bilirubin (Negative) Urine Urobilinogen (<2.0) mg/dL Ur Leukocyte Esterase (Negative) Urine RBC (0-5) /hpf Urine WBC (0-5) /hpf Ur Squamous Epith Cells (0-4) /hpf Urine Bacteria (None) /hpf Hyaline Casts (0-2) /lpf Urine Mucus (None) /hpf Disposition Clinical Impression: UTI (urinary tract infection), bacterial, MRSA (methicillin resistant staph aureus) culture positive Disposition: ADMITTED IP TO THIS HOSP Condition: Fair Is patient prescribed a controlled substance at d/c from ED?: No Referrals: Gilma Martinez MD [Primary Care Provider] - 1-2 days
[2019-01-04] MEDS ORDERED: VANCOMYCIN IV PER PHARMACY 1 EACH MISC MISCELLANE PRN (16:05)
[2019-01-04 16:06] LABS: Appearance,Urine Clear (Clear); Bacteria,Urine Occasional /hpf; Bilirubin,Urine Negative (Negative); Blood,Urine Negative (Negative); Color,Urine Yellow; Glucose,Urine (UA) Negative (Negative); Hyaline Casts,Urine 5 /lpf (0-2); Ketones,Urine Negative (Negative); Leukocyte Esterase,Urine Small (Negative); Mucus,Urine Rare /hpf; Nitrite,Urine Negative (Negative); Protein,Urine Negative (Negative); RBC,Urine 2 /hpf (0-5); Specific Gravity,Urine 1.006 (1.001-1.035); Squamous Epithelial Cell,Urine <1 /hpf (0-4); Urobilinogen,Urine <2.0 mg/dL (<2.0); WBC,Urine 2 /hpf (0-5)
[2019-01-04] MEDS ORDERED: VANCOMYCIN 1,500 MG in SODIUM CHLORIDE 0.9% 250 ML IVPB STA (16:10)
[2019-01-04 16:36] LABS: Anisocytosis Slight; Basophils % (A) 1 %; Eosinophils # (A) 0.2 k/uL (0-0.7); Eosinophils % (A) 4 %; HCT 37.8 % (34.0-46.0); HGB 12.3 gm/dL (11.4-16.0); Lymphocytes % (A) 21 %; MCH 31.5 pg (25.0-35.0); MCHC 32.5 g/dL (31.0-37.0); MCV 96.9 fL (80.0-100.0); Macrocytosis Slight; Mean Platelet Volume 8.5; Monocytes # (A) 0.3 k/uL (0-1.0); Monocytes % (A) 6 %; Neutrophils # (A) 3.3 k/uL (1.3-7.7); Neutrophils % (A) 67 %; RDW 19.1 % (11.5-15.5); WBC 4.9 k/uL (3.8-10.6)
[2019-01-04 16:40] LABS: Platelet Count 70 k/uL (150-450)
[2019-01-04 16:41] LABS: Albumin 3.2 g/dL (3.5-5.0); Total Bilirubin 1.4 mg/dL (0.2-1.3); Total Protein 7.1 g/dL (6.3-8.2)
--- NOTE | 2019-01-04 16:42 | XR ---
Abdomen 3 views. History abdominal pain and vomiting. Comparison 12/13/2018. TECHNIQUE: Supine and upright views. FINDINGS: There is no sign of intestinal obstruction or pneumoperitoneum. Fecal pattern is normal. There is no evidence of a mass. There are clips from cholecystectomy. There are no pathologic calcifications over the kidneys. Lung bases appear clear. IMPRESSION: Nonacute abdomen. No significant change.
[2019-01-04 16:56] LABS: Calcium 8.8 mg/dL (8.4-10.2)
[2019-01-04] MEDS ORDERED: SODIUM CHLORIDE 0.9% 500 ML 500 ML IV ONE (17:25)
[2019-01-04] MEDS ORDERED: ONDANSETRON 4 MG/2 ML VIAL IVP PRN (18:20)
[2019-01-04] MEDS ORDERED: NALOXONE 0.4 MG/ML 1 ML VIAL IV PRN (18:20)
[2019-01-04] MEDS ORDERED: ACETAMINOPHEN TAB 325 MG TAB PO PRN (18:20)
[2019-01-04 20:38] LABS: Glucose,Whole Blood 94 mg/dL (75-99)
[2019-01-04] MEDS: MORPHINE SULFATE 2 MG/ML SYRINGE IV PRN (20:57)
[2019-01-04] MEDS: SODIUM CHLORIDE 0.9% 1,000 ML IV SCH (20:59)
[2019-01-04] MEDS: SPIRONOLACTONE 25 MG TAB PO SCH (22:10)
[2019-01-04] MEDS: PREGABALIN 25 MG CAP PO SCH (22:10)
[2019-01-04] MEDS: FAMOTIDINE 20 MG TAB PO SCH (22:11)
[2019-01-04] MEDS: SUCRALFATE 1 GM TAB PO SCH (22:13)
[2019-01-04] MEDS: LACTULOSE 20 GM/30 ML CUP PO SCH (22:13)
[2019-01-05] MEDS: DICYCLOMINE 10 MG CAP PO SCH ×4 (00:05→21:51)
[2019-01-05] MEDS: INSULIN NPH 300 UNIT/3 ML VIAL SQ SCH ×3 (00:06→23:56)
[2019-01-05] MEDS: INSULIN ASPART (NovoLOG) 100 UNIT/ML VIAL SQ SCH ×5 (00:07→23:56)
[2019-01-05 00:10] LABS: Glucose,Whole Blood 164 mg/dL (75-99)
[2019-01-05 00:27] LABS: Hemoglobin A1C 5.5 % (4.0-6.0)
[2019-01-05] MEDS: SODIUM CHLORIDE 0.9% 1,000 ML IV SCH ×2 (06:14→16:25)
[2019-01-05 07:26] LABS: Glucose,Whole Blood 83 mg/dL (75-99)
[2019-01-05] MEDS: buPROPion SR 150 MG TABLET.ER PO SCH (07:53)
[2019-01-05] MEDS: SUCRALFATE 1 GM TAB PO SCH ×4 (07:53→21:51)
[2019-01-05] MEDS: PREGABALIN 25 MG CAP PO SCH ×3 (07:53→21:51)
[2019-01-05] MEDS: LACTULOSE 20 GM/30 ML CUP PO SCH ×2 (07:53→11:56)
[2019-01-05] MEDS: MAGNESIUM OXIDE 400 MG TAB PO SCH (07:53)
[2019-01-05] MEDS: SPIRONOLACTONE 25 MG TAB PO SCH ×2 (07:53→21:12)
[2019-01-05] MEDS: clonazePAM 0.5 MG TAB PO SCH (07:54)
[2019-01-05] MEDS: FAMOTIDINE 20 MG TAB PO SCH (07:54)
[2019-01-05] MEDS: MORPHINE SULFATE 2 MG/ML SYRINGE IV PRN (08:02)
[2019-01-05] MEDS: VANCOMYCIN 1,500 MG in SODIUM CHLORIDE 0.9% 250 ML IVPB SCH (08:03)
[2019-01-05 10:03] LABS: Albumin 2.4 g/dL (3.5-5.0); Potassium 4.2 mmol/L (3.5-5.1); Total Bilirubin 1.8 mg/dL (0.2-1.3); Total Protein 5.6 g/dL (6.3-8.2)
[2019-01-05 10:06] LABS: Anisocytosis Slight; Basophils % (A) 1 %; Eosinophils # (A) 0.1 k/uL (0-0.7); Eosinophils % (A) 4 %; HGB 10.7 gm/dL (11.4-16.0); Hypochromasia Marked; Lymphocytes # (A) 0.8 k/uL (1.0-4.8); Lymphocytes % (A) 22 %; MCH 32.2 pg (25.0-35.0); MCHC 31.4 g/dL (31.0-37.0); Macrocytosis Moderate; Mean Platelet Volume 8.3; Monocytes # (A) 0.3 k/uL (0-1.0); Monocytes % (A) 8 %; Neutrophils # (A) 2.2 k/uL (1.3-7.7); Neutrophils % (A) 62 %; RBC 3.32 m/uL (3.80-5.40); WBC 3.5 k/uL (3.8-10.6)
[2019-01-05 10:10] LABS: MCV 102.3 fL (80.0-100.0); Platelet Count 58 k/uL (150-450)
[2019-01-05 10:49] VITALS: BMI 28.2
--- NOTE | 2019-01-05 10:55 | P.HPIM ---
History of Present Illness H&P Date: 01/05/19 This is a 73-year-old female patient well-known to my services. Patient presented to the emergency room with complaints of UTI positive for MRSA. Patient presented to the emergency room approximately 5 days prior for abdominal discomfort and at that time was positive for UTI. Patient was discharged home with antibiotic. Since that time urinary culture has shown growth with MRSA. Patient does have past medical history of primary liver cancer, diabetes mellitus, hypertension MRSA and urine MRSA in stool anxiety and depression. Patient also has standing order for when necessary paracentesis. During previous admission hospice discussion was held due to patient's frequent admissions and chronic pain issues. Patient declined hospice care at that time. Patient also advised during previous admission the importance of follow-up with oncology services. Patient also has been worked up due to abdominal pain. Patient does have ostomy from previous surgery done at [facility] approximately 10 years ago. Patient was evaluated by our surgical services during previous admission. Recommending follow-up age on surgeon for further evaluation of ongoing chronic abdominal pain. Dr. Esparza has been consulted for infectious disease. Patient started on vancomycin for IV antibiotics. Urine culture ordered. At this time patient is complaining of some abdominal discomfort which is chronic. Patient denies chest pain or shortness of breath. Patient abdominal ascites does appear to be minimal. Patient is complaining of some burning with urination. Review of Systems Please refer to HPI otherwise unremarkable Past Medical History Past Medical History: Cancer, Diabetes Mellitus, Hypertension, Liver Disease Additional Past Medical History / Comment(s): liver ca- had chemo 10-03-18,past ascities-paracentesis, ulcer(sx),diveticulitis, anx/depression History of Any Multi-Drug Resistant Organisms: MRSA Date of last positivie culture/infection: 12/30/18 MDRO Source:: MRSA URINE Past Surgical History: Appendectomy, Bowel Resection, Section, Cholecystectomy, Hysterectomy, Tonsillectomy Additional Past Surgical History / Comment(s): rt rotator cuff repair,carpal tunnel release .liver bx,ilieostomy ,paracentesis, chemo, embolizations of liver tumors Past Anesthesia/Blood Transfusion Reactions: No Reported Reaction Past Psychological History: Anxiety, Depression Additional Psychological History / Comment(s): Reformed smoker. . Retired. No experience. No animal exposures Smoking Status: Never smoker Past Alcohol Use History: None Reported Additional Past Alcohol Use History / Comment(s): started smoking 1963 and quit 1965 Past Drug Use History: None Reported - Past Family History Mother History Unknown: Yes Family Medical History: Congestive Heart Failure (CHF) Medications and Allergies Home Medications Medication Instructions Recorded Confirmed Type Dicyclomine [Bentyl] 10 mg PO TID 10/23/18 01/04/19 History Omeprazole [PriLOSEC] 20 mg PO BID 10/23/18 01/04/19 History Sucralfate [Carafate] 1 gm PO QID 10/23/18 01/04/19 History Insulin NPH Human Isophane 18 unit SQ QAM 10/24/18 01/04/19 History [NovoLIN N] Insulin Regular, Human [NovoLIN R] 8 unit SQ AC-TID 10/24/18 01/04/19 History Metoprolol Tartrate 12.5 mg PO DAILY 10/24/18 01/04/19 History Ondansetron [Zofran ODT] 8 mg PO Q8HR PRN 10/24/18 01/04/19 History clonazePAM [KlonoPIN] 0.5 mg PO DAILY tab 11/03/18 01/04/19 Rx Pregabalin [Lyrica] 25 mg PO TID #9 cap 11/22/18 01/04/19 Rx Ferrous Sulfate [Iron (65 MG 325 mg PO BID #60 tab 12/15/18 01/04/19 Rx Elemental)] Spironolactone [Aldactone] 50 mg PO BID 30 Days #60 tab 12/21/18 01/04/19 Rx Torsemide [Demadex] 20 mg PO BID@0900,1600 30 Days #60 12/21/18 01/04/19 Rx tab buPROPion SR [Wellbutrin SR] 150 mg PO DAILY #30 tablet.er 12/21/18 01/04/19 Rx Insulin NPH Human Isophane 16 unit SQ HS 12/30/18 01/04/19 History [NovoLIN N] Lactulose 20 gm PO BID 12/30/18 01/04/19 History Magnesium Oxide [William] 500 mg PO DAILY 12/30/18 01/04/19 History Morphine Sulfate ER [Ms Contin] 15 mg PO Q12H 01/04/19 01/04/19 History Allergies Allergy/AdvReac Type Severity Reaction Status Date / Time amlodipine Allergy Rash/Hives Verified 01/04/19 15:35 oxycodone Allergy Rash/Hives Verified 01/04/19 15:35 Penicillins Allergy Rash/Hives Verified 01/04/19 15:35 hydromorphone [From Dilaudid] AdvReac Mild tactile Verified 01/04/19 20:26 disturbance GREG Inhibitors AdvReac Cough Verified 01/04/19 20:26 sodium dodecyclbenzene Allergy Rash/Hives Uncoded 12/30/18 09:37 sulfonate Physical Exam Vitals: Vital Signs Temp Pulse Pulse Resp BP BP BP 01/05/19 08:00 16 01/05/19 07:25 98.4 F 57 L 16 91/51 01/05/19 02:30 95/57 01/04/19 23:00 98.7 F 60 20 88/49 01/04/19 20:15 98.2 F 58 L 20 115/62 01/04/19 19:37 98.7 F 56 L 18 99/51 01/04/19 19:30 61 20 99/46 01/04/19 17:55 59 L 20 108/48 01/04/19 17:20 53 L 18 96/46 01/04/19 16:45 65 20 95/42 01/04/19 15:15 98.7 F 56 L 18 114/61 Pulse Ox 01/05/19 08:00 01/05/19 07:25 98 01/05/19 02:30 01/04/19 23:00 98 01/04/19 20:15 100 01/04/19 19:37 99 01/04/19 19:30 99 01/04/19 17:55 99 01/04/19 17:20 99 01/04/19 16:45 99 01/04/19 15:15 99 Intake and Output 01/04/19 01/05/19 01/05/19 22:59 06:59 14:59 Intake Total 100 Balance 100 Intake: Oral 100 Other: Voiding Method Toilet Toilet Toilet # Voids 1 # Bowel Movements 1 Weight 86.636 kg Head normocephalic Neck supple Lungs clear to auscultation bilaterally no wheezing or crackles Heart regular rate and rhythm S1-S2, no rub or gallop Abdomen is soft nontender nondistended positive bowel sounds no hepatosplenomegaly. Minimal abdominal ascites noted. Extremities no edema Neuro alert and orientated to 3 Results CBC & Chem 7: 01/05/19 09:30 01/05/19 09:30 Labs: Abnormal Lab Results - Last 24 Hours (Table) 01/04/19 01/04/19 01/04/19 Range/Units 15:45 16:18 16:18 WBC (3.8-10.6) k/uL RBC (3.80-5.40) m/uL Hgb (11.4-16.0) gm/dL MCV (80.0-100.0) fL RDW 19.1 H (11.5-15.5) % Plt Count 70 L (150-450) k/uL Lymphocytes # (1.0-4.8) k/uL Sodium 136 L (137-145) mmol/L BUN 25 H (7-17) mg/dL Creatinine 1.46 H (0.52-1.04) mg/dL Glucose 129 H (74-99) mg/dL POC Glucose (mg/dL) (75-99) mg/dL Calcium (8.4-10.2) mg/dL Total Bilirubin 1.4 H (0.2-1.3) mg/dL AST 49 H (14-36) U/L Alkaline Phosphatase 239 H (38-126) U/L Total Protein (6.3-8.2) g/dL Albumin 3.2 L (3.5-5.0) g/dL Lipase 18 L (23-300) U/L Ur Leukocyte Esterase Small H (Negative) Urine Bacteria Occasional H (None) /hpf Hyaline Casts 5 H (0-2) /lpf Urine Mucus Rare H (None) /hpf 01/05/19 01/05/19 01/05/19 Range/Units 00:04 09:30 09:30 WBC 3.5 L (3.8-10.6) k/uL RBC 3.32 L (3.80-5.40) m/uL Hgb 10.7 L (11.4-16.0) gm/dL MCV 102.3 H D (80.0-100.0) fL RDW 19.0 H (11.5-15.5) % Plt Count 58 L (150-450) k/uL Lymphocytes # 0.8 L (1.0-4.8) k/uL Sodium (137-145) mmol/L BUN 20 H (7-17) mg/dL Creatinine 1.24 H (0.52-1.04) mg/dL Glucose 177 H (74-99) mg/dL POC Glucose (mg/dL) 164 H (75-99) mg/dL Calcium 8.0 L (8.4-10.2) mg/dL Total Bilirubin 1.8 H (0.2-1.3) mg/dL AST 40 H (14-36) U/L Alkaline Phosphatase 154 H (38-126) U/L Total Protein 5.6 L (6.3-8.2) g/dL Albumin 2.4 L (3.5-5.0) g/dL Lipase (23-300) U/L Ur Leukocyte Esterase (Negative) Urine Bacteria (None) /hpf Hyaline Casts (0-2) /lpf Urine Mucus (None) /hpf Microbiology - Last 24 Hours (Table) 01/04/19 15:45 Urine Culture - Preliminary Urine,Voided Thrombosis Risk Factor Assmnt - Choose All That Apply Any of the Below Risk Factors Present?: No Other Risk Factors: Yes Each Risk Factor Represents 2 Points: Age 61-74 years Other congenital or acquired thrombophilia - If yes, enter type in comment: No Thrombosis Risk Factor Assessment Total Risk Factor Score: 2 Thrombosis Risk Factor Assessment Level: Low Risk Assessment and Plan Assessment: 1. Urinary tract infection positive for MRSA. Urine and blood cultures ordered. Infectious disease consulted. Patient currently on vancomycin. 2. Acute on chronic kidney disease. Creatinine 1.46 on admission repeat creatinine 1.24. Continue IV fluids. We'll continue to monitor 3. Chronic abdominal pain due to reoccurring ascites. At this time that he seems to be minimal. Patient is maintained on Aldactone 50 mg daily. Patient reports that this has been working for outpatient has not required paracentesis 4. History of diverticulitis with ileostomy placement. During previous admissions patient was evaluated by general surgery due to ostomy pain and no surgical intervention was recommended at that time. Patient was a 5 she should follow-up with [place] surgeon who originally perform surgery to evaluate ileostomy site 5. History of MRSA and patient stool. Patient has completed treatment 6. History of nonalcoholic liver cirrhosis 7. History of hepatocellular carcinoma status post chemo embolization 2012, 2016 2018. Patient follows with oncology services. 8. History of pancytopenia due to known liver cancer secondary to liver cirrhosis 9. Insulin-dependent diabetes mellitus. Hemoglobin A1c during previous admission 7.1. Home meds resumed 10. Elevated liver enzymes due to known chronic liver malignancy 11. Iron deficiency anemia. Continue ferrous sulfate 12. Hypotension. Blood pressures in the 90s. Home meds have been resumed parameters have been set 13. Depression. Patient was started on Wellbutrin. Last admission. Patient was follow-up PCP for further management DVT prophylaxis SCDs due to thrombocytopenia. GI prophylaxis Pepcid Patient takes MS Contin plus MSIR at home. Home meds will be resumed Time with Patient: Greater than 30 (Greater than 60% of the total time spent in counseling and coordination of care. I performed an examination of the patient and discussed their management with the Nurse Practitioner. I have reviewed the Nurse Practitioner's notes and agree with the documented findings and plan of care)
[2019-01-05 11:35] LABS: Glucose,Whole Blood 134 mg/dL (75-99)
[2019-01-05] MEDS: MORPHINE SULFATE ER 15 MG TABLET PO SCH ×2 (11:55→21:12)
[2019-01-05] MEDS: INSULIN REGULAR 100 UNIT/ML VIAL SQ SCH ×2 (13:14→18:01)
[2019-01-05 17:16] LABS: Glucose,Whole Blood 203 mg/dL (75-99)
[2019-01-05] MEDS: PANTOPRAZOLE 40 MG TABLET PO SCH (20:12)
[2019-01-05 20:45] LABS: Glucose,Whole Blood 131 mg/dL (75-99)
[2019-01-05] MEDS: FERROUS SULFATE 325 MG TAB PO SCH (21:14)
[2019-01-05 23:50] LABS: Glucose,Whole Blood 156 mg/dL (75-99)
[2019-01-06] MEDS: SODIUM CHLORIDE 0.9% 1,000 ML IV SCH ×3 (06:45→20:46)
--- NOTE | 2019-01-06 06:46 | CONS ---
CONSULTATION DATE OF SERVICE: 01/05/2019. REASON FOR CONSULTATION: Staph aureus urinary tract infection. HISTORY OF PRESENT ILLNESS: The patient is a 73-year-old female, who apparently was seen at [facility] ER a few days ago where the patient presented predominantly with urinary symptoms. The patient has been diagnosed with UTI and was discharged home on Bactrim DS. Patient's urine culture has been finalized showing both MRSA and Enterococcus faecalis. The patient apparently has been sent to the ER on behalf of primary care physician as the patient did have persistent symptoms. The patient has been complaining mostly urine is coming out in small amounts with slight burning to it; however the patient denies having any suprapubic or flank pain. The patient is complaining of feeling nauseated, but no vomiting. Denies having any chest pain or shortness of breath or cough. With these symptoms, the patient was evaluated by the ER physician. On arrival to the ER, the patient did have an abdominal x-ray which was nonacute abdomen, no significant changes. The patient did not have any fever and her white count was not significantly elevated. The patient did have a repeat UA done which was not significantly positive. It showed mild leukocyte esterase and only 2 WBCs. The patient has been started on vancomycin to which both organisms are sensitive. Infectious Disease was consulted for further recommendation regarding antibiotic therapy. REVIEW OF SYSTEMS: Positive points have been mentioned in HPI. Rest of the 14 systems has been negative. PAST MEDICAL HISTORY: Hypertension, diabetes mellitus, history of liver cancer, anxiety, depression, diverticulitis. PAST SURGICAL HISTORY: Appendectomy, bowel resection, , cholecystectomy, hysterectomy, tonsillectomy, right rotator cuff repair, carpal tunnel release, liver biopsy. SOCIAL HISTORY: Quit smoking back in 1965. Smoked for a very short time. No drinking or drug use. FAMILY HISTORY: Mother with history of congestive heart failure. ALLERGIES: Allergies to PENICILLIN, HYDROMORPHONE, GREG INHIBITORS, AMLODIPINE and OXYCODONE. MEDICATIONS: Medications include the patient is on Vancomycin 1500 mg daily. She is on Demadex, Carafate, Aldactone, Lyrica, Protonix, Zofran, Narcan, morphine sulfate, Lopressor, Mag oxide, lactulose, Humulin N and R, Bentyl, Klonopin, Wellbutrin, Tylenol. PHYSICAL EXAMINATION: On examination, blood pressure is 101/53 with a pulse of 65, temperature 98.8. She is 98% on room air. General description is an elderly female lying in bed in no distress. No tachypnea or accessory muscle of respiration use. HEENT examination shows no pallor or scleral icterus. Oral mucous membrane is dry. No pharyngeal erythema or thrush. NECK: Trachea central. No thyromegaly. LUNGS: Unlabored breathing with decreased breath sounds in the bases. No wheeze or crackle. HEART: S1, S2. Regular rate and rhythm. No added sounds. ABDOMEN: Soft, no tenderness. No guarding. No rigidity. EXTREMITIES: No edema of feet. SKIN EXAMINATION: No rash or mass palpable. NEUROLOGICAL: Patient is awake, alert, oriented x3. Mood and affect normal. LABS: Hemoglobin is 10.7, white count 3.5. BUN of 20, creatinine 1.24. Admission creatinine was 1.46. Liver enzymes are slightly elevated especially bilirubin. UA was mildly positive. DIAGNOSTIC IMPRESSION AND PLAN: Patient admitted to the hospital with urinary tract infection per her primary care physician, concern for possible not responding to the oral Bactrim with the patient was sent as urine culture did show both the Enterococcus faecalis and methicillin-resistant Staphylococcus aureus. Patient currently with no fever. No significantly elevated white count. Possible mild cystitis, not entirely excluded in a patient who did have mildly elevated creatinine, questionably related to creatinine or possible structural abnormality. PLAN: 1. We will obtain ultrasound of the kidney and bladder as well as the gallbladder area. 2. Keep the patient on vancomycin pharmacy to dose while watching the kidney function closely with days of antibiotic should be enough for mild cystitis. 3. We will follow on clinical condition and culture to further adjust medication if needed. Thank you for this consultation. Will follow this patient along with you. MMODL / IJN: [id number] /
[2019-01-06] MEDS: SPIRONOLACTONE 25 MG TAB PO SCH ×2 (08:14→20:31)
[2019-01-06] MEDS: MAGNESIUM OXIDE 400 MG TAB PO SCH (08:15)
[2019-01-06] MEDS: FERROUS SULFATE 325 MG TAB PO SCH ×2 (08:15→20:35)
[2019-01-06] MEDS: METOPROLOL TARTRATE 12.5 MG TAB PO SCH (08:15)
[2019-01-06] MEDS: TORSEMIDE 20 MG TAB PO SCH (08:15)
[2019-01-06] MEDS: SUCRALFATE 1 GM TAB PO SCH ×4 (08:15→21:12)
[2019-01-06] MEDS: buPROPion SR 150 MG TABLET.ER PO SCH (08:15)
[2019-01-06] MEDS: DICYCLOMINE 10 MG CAP PO SCH ×3 (08:15→20:36)
[2019-01-06] MEDS: INSULIN REGULAR 100 UNIT/ML VIAL SQ SCH ×3 (08:16→17:06)
[2019-01-06] MEDS: INSULIN ASPART (NovoLOG) 100 UNIT/ML VIAL SQ SCH ×4 (08:20→21:05)
[2019-01-06] MEDS: PANTOPRAZOLE 40 MG TABLET PO SCH ×2 (08:20→17:03)
[2019-01-06] MEDS: INSULIN NPH 300 UNIT/3 ML VIAL SQ SCH ×3 (08:21→21:09)
[2019-01-06] MEDS: LACTULOSE 20 GM/30 ML CUP PO SCH ×2 (08:22→20:41)
[2019-01-06] MEDS: VANCOMYCIN 1,500 MG in SODIUM CHLORIDE 0.9% 250 ML IVPB SCH (08:24)
[2019-01-06] MEDS: MORPHINE SULFATE ER 15 MG TABLET PO SCH ×2 (08:25→20:39)
[2019-01-06] MEDS: clonazePAM 0.5 MG TAB PO SCH (08:25)
[2019-01-06] MEDS: PREGABALIN 25 MG CAP PO SCH ×3 (08:25→20:34)
[2019-01-06 10:18] LABS: Albumin 2.5 g/dL (3.5-5.0); Calcium 8.1 mg/dL (8.4-10.2); Total Bilirubin 1.1 mg/dL (0.2-1.3); Total Protein 5.9 g/dL (6.3-8.2)
[2019-01-06 10:34] LABS: Anisocytosis Slight; Basophils % (A) 1 %; Eosinophils # (A) 0.2 k/uL (0-0.7); Eosinophils % (A) 5 %; HCT 35.5 % (34.0-46.0); HGB 10.9 gm/dL (11.4-16.0); Hypochromasia Moderate; Lymphocytes # (A) 0.9 k/uL (1.0-4.8); Lymphocytes % (A) 26 %; MCH 31.6 pg (25.0-35.0); MCHC 30.7 g/dL (31.0-37.0); MCV 102.8 fL (80.0-100.0); Macrocytosis Moderate; Mean Platelet Volume 9.8; Monocytes # (A) 0.3 k/uL (0-1.0); Monocytes % (A) 9 %; Neutrophils % (A) 57 %; RBC 3.45 m/uL (3.80-5.40); WBC 3.5 k/uL (3.8-10.6)
[2019-01-06 10:35] LABS: Platelet Count 56 k/uL (150-450)
--- NOTE | 2019-01-06 11:10 | US ---
EXAMINATION TYPE: US abdomen complete DATE OF EXAM: 01/06/2019 COMPARISON: CT abdomen pelvis 12/30/2018, paracentesis ultrasound 12/20/2018 CLINICAL HISTORY: recurrent UTI and elevated LFT. Recurrent UTI, elevated LFT, nausea and vomiting, a bdominal pain, cholecystectomy EXAM MEASUREMENTS: Liver Length: 12.5 cm Gallbladder Wall: Surgically absent CBD: 0.5 cm Spleen: 13.5 cm Right Kidney: 9.6 x 5.5 x 5.5 cm Left Kidney: 10.9 x 5.8 x 5.1 cm Technical limitations due to overlying bowel content Pancreas: Tail obscured by overlying bowel gas Liver: heterogeneous Gallbladder: Surgically absent Evidence for sonographic Vicente's sign: no CBD: appears wnl Spleen: enlarged Right Kidney: no evidence of hydronephrosis Left Kidney: no evidence of hydronephrosis Upper IVC: wnl Abd Aorta: visualized portions appear wnl, bifurcation obscured Small amount of free fluid adjacent to liver and spleen Hypoechoic area adjacent to liver = 3.7 x 3.7 x 3.9cm IMPRESSION: 1. Minimal ascites adjacent to liver and spleen. 2. Suggestion of mild fatty infiltration liver. 3. Minimal splenomegaly. 4. There is a 3.9 cm rounded isoechoic area at the splenic hilum of uncertain etiology. This may be a splenule.
--- NOTE | 2019-01-06 11:19 | P.PN ---
Subjective Progress Note Date: 01/06/19 This is a 73-year-old female patient well-known to my services. Patient presented to the emergency room with complaints of UTI positive for MRSA. Patient presented to the emergency room approximately 5 days prior for abdominal discomfort and at that time was positive for UTI. Patient was discharged home with antibiotic. Since that time urinary culture has shown growth with MRSA. Patient does have past medical history of primary liver cancer, diabetes mellitus, hypertension MRSA and urine MRSA in stool anxiety and depression. Patient also has standing order for when necessary paracentesis. During previous admission hospice discussion was held due to patient's frequent admissions and chronic pain issues. Patient declined hospice care at that time. Patient also advised during previous admission the importance of follow-up with oncology services. Patient also has been worked up due to abdominal pain. Patient does have ostomy from previous surgery done at [facility] approximately 10 years ago. Patient was evaluated by our surgical services during previous admission. Recommending follow-up age on surgeon for further evaluation of ongoing chronic abdominal pain. Dr. Esparza has been consulted for infectious disease. Patient started on vancomycin for IV antibiotics. Urine culture ordered. At this time patient is complaining of some abdominal discomfort which is chronic. Patient denies chest pain or shortness of breath. Patient abdominal ascites does appear to be minimal. Patient is complaining of some burning with urination. On 01/06/2019 patient is alert and oriented 3. Patient is complaining of some abdominal discomfort. Patient remains on IV vancomycin per infectious disease. At this time patient denies chest pain or shortness breath. Patient denies any nausea vomiting or diarrhea. Patient denies any urinary burning or frequency Objective - Vital Signs Vital signs: Vital Signs Temp 98.3 F 01/06/19 06:00 Pulse 67 01/06/19 06:00 Resp 20 01/06/19 06:00 BP 94/55 01/06/19 06:00 Pulse Ox 98 01/06/19 06:00 Intake & Output 01/05/19 01/06/19 01/06/19 18:59 06:59 18:59 Intake Total 950 600 Balance 950 600 Weight 86.636 kg Intake: Oral 950 600 Other: Voiding Method Toilet Toilet Toilet # Voids 3 1 - Exam Head normocephalic Neck supple Lungs clear to auscultation bilaterally no wheezing or crackles Heart regular rate and rhythm S1-S2, no rub or gallop Abdomen is soft nontender nondistended positive bowel sounds no hepatosplenomegaly. Minimal abdominal ascites noted. Extremities no edema Neuro alert and orientated to 3 - Labs CBC & Chem 7: 01/06/19 09:42 01/06/19 09:42 Labs: Abnormal Lab Results - Last 24 Hours (Table) 01/05/19 01/05/19 01/05/19 Range/Units 11:33 17:14 20:42 WBC (3.8-10.6) k/uL RBC (3.80-5.40) m/uL Hgb (11.4-16.0) gm/dL MCV (80.0-100.0) fL MCHC (31.0-37.0) g/dL RDW (11.5-15.5) % Plt Count (150-450) k/uL Lymphocytes # (1.0-4.8) k/uL Chloride (98-107) mmol/L Carbon Dioxide (22-30) mmol/L Glucose (74-99) mg/dL POC Glucose (mg/dL) 134 H 203 H 131 H (75-99) mg/dL Calcium (8.4-10.2) mg/dL AST (14-36) U/L Alkaline Phosphatase (38-126) U/L Total Protein (6.3-8.2) g/dL Albumin (3.5-5.0) g/dL 01/05/19 01/06/19 01/06/19 Range/Units 23:46 09:42 09:42 WBC 3.5 L (3.8-10.6) k/uL RBC 3.45 L (3.80-5.40) m/uL Hgb 10.9 L (11.4-16.0) gm/dL MCV 102.8 H (80.0-100.0) fL MCHC 30.7 L (31.0-37.0) g/dL RDW 19.0 H (11.5-15.5) % Plt Count 56 L (150-450) k/uL Lymphocytes # 0.9 L (1.0-4.8) k/uL Chloride 112 H (98-107) mmol/L Carbon Dioxide 21 L (22-30) mmol/L Glucose 154 H (74-99) mg/dL POC Glucose (mg/dL) 156 H (75-99) mg/dL Calcium 8.1 L (8.4-10.2) mg/dL AST 56 H (14-36) U/L Alkaline Phosphatase 217 H (38-126) U/L Total Protein 5.9 L (6.3-8.2) g/dL Albumin 2.5 L (3.5-5.0) g/dL Microbiology - Last 24 Hours (Table) 01/04/19 15:45 Urine Culture - Final Urine,Voided 01/04/19 16:18 Blood Culture - Preliminary Blood No Growth after 24 hours Assessment and Plan Assessment: 1. Urinary tract infection positive for MRSA. Urine and blood cultures ordered. Infectious disease is following. Patient remains on IV vancomycin. Ultrasound of abdomen completed showing minimal ascites adjacent to liver and spleen. Suggest mild fatty infiltration liver. Minimal splenomegaly. There is a 3.9 cm rounded isoechoic area at the splenic ileum of uncertain etiology this may be splenule. 2. Acute on chronic kidney disease. Creatinine 1.46 on admission repeat creatinine 1.24. Continue IV fluids. We'll continue to monitor. Creatinine improving to 0.9. 3. Chronic abdominal pain due to reoccurring ascites. At this time that he seems to be minimal. Patient is maintained on Aldactone 50 mg daily. Patient reports that this has been working for outpatient has not required paracentesis 4. History of diverticulitis with ileostomy placement. During previous admissions patient was evaluated by general surgery due to ostomy pain and no surgical intervention was recommended at that time. Patient was a 5 she should follow-up with [place] surgeon who originally perform surgery to evaluate ileostomy site 5. History of MRSA and patient stool. Patient has completed treatment 6. History of nonalcoholic liver cirrhosis 7. History of hepatocellular carcinoma status post chemo embolization 2012, 2016 2018. Patient follows with oncology services. 8. History of pancytopenia due to known liver cancer secondary to liver cirrhosis 9. Insulin-dependent diabetes mellitus. Hemoglobin A1c during previous admission 7.1. Home meds resumed 10. Elevated liver enzymes due to known chronic liver malignancy 11. Iron deficiency anemia. Continue ferrous sulfate 12. Hypotension. Blood pressures in the 90s. Home meds have been resumed parameters have been set 13. Depression. Patient was started on Wellbutrin. Last admission. Patient was follow-up PCP for further management DVT prophylaxis SCDs due to thrombocytopenia. GI prophylaxis Pepcid Patient takes MS Contin plus MSIR at home. Home meds will be resumed I performed an examination of the patient and discussed their management with the Nurse Practitioner. I have reviewed the Nurse Practitioner's notes and agree with the documented findings and plan of care
[2019-01-06 12:00] LABS: Glucose,Whole Blood 159 mg/dL (75-99)
[2019-01-06 12:16] LABS: Glucose,Whole Blood 198 mg/dL (75-99)
[2019-01-06 16:51] LABS: Glucose,Whole Blood 86 mg/dL (75-99)
[2019-01-06 20:38] LABS: Glucose,Whole Blood 102 mg/dL (75-99)
[2019-01-07] MEDS: VANCOMYCIN 1,500 MG in SODIUM CHLORIDE 0.9% 250 ML IVPB SCH ×2 (00:40→15:19)
[2019-01-07] MEDS: SODIUM CHLORIDE 0.9% 1,000 ML IV SCH ×2 (04:54→15:21)
--- NOTE | 2019-01-07 06:08 | PN ---
PROGRESS NOTE DATE OF SERVICE: 01/06/2019. REASON FOR FOLLOWUP: Urinary tract infection. INTERVAL HISTORY: The patient is currently afebrile. Patient is breathing comfortably. Denies any chest pain, cough, abdominal pain and urinary symptoms have improved. PHYSICAL EXAMINATION: Blood pressure 95/56, pulse of 75, temperature 98.9 she is 98% on room air. GENERAL DESCRIPTION: An elderly female lying in bed in no distress. RESPIRATORY SYSTEM: Unlabored breathing. Clear to auscultation anteriorly. HEART: S1, S2. Regular rate and rhythm. ABDOMEN: Soft. LABS: Hemoglobin is 10.8, white count 3.5. BUN of 13, creatinine 0.93. DIAGNOSTIC IMPRESSION AND PLAN: Patient admitted to the hospital with UTI, failing outpatient Bactrim therapy. This patient did have a urine culture recently with MRSA, Enterococcus faecalis. Patient is currently on vancomycin and will continue for now and continue supportive care. MMODL / IJN: [id number] /
[2019-01-07] MEDS: FERROUS SULFATE 325 MG TAB PO SCH ×2 (07:50→21:55)
[2019-01-07] MEDS: DICYCLOMINE 10 MG CAP PO SCH ×3 (07:50→21:55)
[2019-01-07] MEDS: LACTULOSE 20 GM/30 ML CUP PO SCH ×3 (07:50→23:11)
[2019-01-07] MEDS: MAGNESIUM OXIDE 400 MG TAB PO SCH (07:50)
[2019-01-07] MEDS: SPIRONOLACTONE 25 MG TAB PO SCH ×2 (07:50→21:55)
[2019-01-07] MEDS: PANTOPRAZOLE 40 MG TABLET PO SCH ×2 (07:50→17:23)
[2019-01-07] MEDS: SUCRALFATE 1 GM TAB PO SCH ×4 (07:51→21:54)
[2019-01-07] MEDS: buPROPion SR 150 MG TABLET.ER PO SCH (07:51)
[2019-01-07] MEDS: INSULIN NPH 300 UNIT/3 ML VIAL SQ SCH ×2 (07:51→21:56)
[2019-01-07] MEDS: METOPROLOL TARTRATE 12.5 MG TAB PO SCH (07:51)
[2019-01-07] MEDS: INSULIN REGULAR 100 UNIT/ML VIAL SQ SCH ×3 (07:51→17:23)
[2019-01-07] MEDS: TORSEMIDE 20 MG TAB PO SCH (07:51)
[2019-01-07] MEDS: INSULIN ASPART (NovoLOG) 100 UNIT/ML VIAL SQ SCH ×4 (07:52→21:56)
[2019-01-07 07:53] LABS: Glucose,Whole Blood 133 mg/dL (75-99)
[2019-01-07] MEDS: MORPHINE SULFATE ER 15 MG TABLET PO SCH ×2 (07:56→22:16)
[2019-01-07] MEDS: clonazePAM 0.5 MG TAB PO SCH (07:56)
[2019-01-07] MEDS: PREGABALIN 25 MG CAP PO SCH ×3 (07:56→21:55)
[2019-01-07 08:56] LABS: Anisocytosis Slight; Basophils % (A) 0 %; Eosinophils # (A) 0.2 k/uL (0-0.7); Eosinophils % (A) 4 %; HCT 34.7 % (34.0-46.0); HGB 10.5 gm/dL (11.4-16.0); Hypochromasia Marked; Lymphocytes # (A) 1.1 k/uL (1.0-4.8); Lymphocytes % (A) 31 %; MCHC 30.3 g/dL (31.0-37.0); MCV 102.4 fL (80.0-100.0); Macrocytosis Moderate; Mean Platelet Volume 8.7; Monocytes # (A) 0.3 k/uL (0-1.0); Monocytes % (A) 9 %; Neutrophils % (A) 55 %; RBC 3.39 m/uL (3.80-5.40); WBC 3.6 k/uL (3.8-10.6)
[2019-01-07 09:06] LABS: Platelet Count 49 k/uL (150-450)
[2019-01-07 09:07] LABS: Albumin 2.3 g/dL (3.5-5.0); Calcium 7.9 mg/dL (8.4-10.2); Potassium 4.5 mmol/L (3.5-5.1); Total Bilirubin 1.1 mg/dL (0.2-1.3); Total Protein 5.5 g/dL (6.3-8.2)
[2019-01-07 12:09] LABS: Glucose,Whole Blood 209 mg/dL (75-99)
--- NOTE | 2019-01-07 14:24 | P.PN ---
Subjective Progress Note Date: 01/07/19 This is a 73-year-old female patient well-known to my services. Patient presented to the emergency room with complaints of UTI positive for MRSA. Patient presented to the emergency room approximately 5 days prior for abdominal discomfort and at that time was positive for UTI. Patient was discharged home with antibiotic. Since that time urinary culture has shown growth with MRSA. Patient does have past medical history of primary liver cancer, diabetes mellitus, hypertension MRSA and urine MRSA in stool anxiety and depression. Patient also has standing order for when necessary paracentesis. During previous admission hospice discussion was held due to patient's frequent admissions and chronic pain issues. Patient declined hospice care at that time. Patient also advised during previous admission the importance of follow-up with oncology services. Patient also has been worked up due to abdominal pain. Patient does have ostomy from previous surgery done at [facility] approximately 10 years ago. Patient was evaluated by our surgical services during previous admission. Recommending follow-up age on surgeon for further evaluation of ongoing chronic abdominal pain. Dr. Esparza has been consulted for infectious disease. Patient started on vancomycin for IV antibiotics. Urine culture ordered. At this time patient is complaining of some abdominal discomfort which is chronic. Patient denies chest pain or shortness of breath. Patient abdominal ascites does appear to be minimal. Patient is complaining of some burning with urination. On 01/06/2019 patient is alert and oriented 3. Patient is complaining of some abdominal discomfort. Patient remains on IV vancomycin per infectious disease. At this time patient denies chest pain or shortness breath. Patient denies any nausea vomiting or diarrhea. Patient denies any urinary burning or frequency. 01/07/2019 patient is seen and examined on the medical floor she is alert and oriented 3 she is complaining of abdominal pain otherwise she denies any complaints there is no fever or chills no headache or dizziness no chest pain no shortness of breath no cough no nausea or vomiting no burning was urination no frequency or urgency and no hematuria Objective - Vital Signs Vital signs: Vital Signs Temp 100.1 F H 01/07/19 07:00 Pulse 62 01/07/19 07:00 Resp 18 01/07/19 07:00 BP 109/52 01/07/19 07:00 Pulse Ox 98 01/07/19 07:00 Intake & Output 01/06/19 01/07/19 01/07/19 18:59 06:59 18:59 Intake Total 1809 875 Balance 1809 Intake: Oral 1809 Other: Voiding Method Toilet Toilet # Voids 2 1 3 - Exam Head normocephalic and atraumatic Neck supple no JVD no goiter Lungs clear to auscultation bilaterally no wheezing or crackles Heart regular rate and rhythm S1-S2, no rub or gallop Abdomen is soft nontender nondistended positive bowel sounds no hepatosplenomegaly. Minimal abdominal ascites noted. Extremities no edema no cyanosis or clubbing Neuro alert and orientated to 3 - Labs CBC & Chem 7: 01/07/19 08:38 01/07/19 08:38 Labs: Abnormal Lab Results - Last 24 Hours (Table) 01/06/19 01/07/19 01/07/19 Range/Units 20:36 07:41 08:38 WBC (3.8-10.6) k/uL RBC (3.80-5.40) m/uL Hgb (11.4-16.0) gm/dL MCV (80.0-100.0) fL MCHC (31.0-37.0) g/dL RDW (11.5-15.5) % Plt Count (150-450) k/uL Chloride 110 H (98-107) mmol/L Carbon Dioxide 20 L (22-30) mmol/L Creatinine 1.06 H (0.52-1.04) mg/dL Glucose 213 H (74-99) mg/dL POC Glucose (mg/dL) 102 H 133 H (75-99) mg/dL Calcium 7.9 L (8.4-10.2) mg/dL AST 56 H (14-36) U/L Alkaline Phosphatase 206 H (38-126) U/L Total Protein 5.5 L (6.3-8.2) g/dL Albumin 2.3 L (3.5-5.0) g/dL 01/07/19 01/07/19 Range/Units 08:38 11:48 WBC 3.6 L (3.8-10.6) k/uL RBC 3.39 L (3.80-5.40) m/uL Hgb 10.5 L (11.4-16.0) gm/dL MCV 102.4 H (80.0-100.0) fL MCHC 30.3 L (31.0-37.0) g/dL RDW 19.0 H (11.5-15.5) % Plt Count 49 L (150-450) k/uL Chloride (98-107) mmol/L Carbon Dioxide (22-30) mmol/L Creatinine (0.52-1.04) mg/dL Glucose (74-99) mg/dL POC Glucose (mg/dL) 209 H (75-99) mg/dL Calcium (8.4-10.2) mg/dL AST (14-36) U/L Alkaline Phosphatase (38-126) U/L Total Protein (6.3-8.2) g/dL Albumin (3.5-5.0) g/dL Microbiology - Last 24 Hours (Table) 01/04/19 16:18 Blood Culture - Preliminary Blood No Growth after 48 hours Assessment and Plan Plan: 1. Urinary tract infection positive for MRSA. Urine and blood cultures ordered. Infectious disease is following. Patient remains on IV vancomycin. Ultrasound of abdomen completed showing minimal ascites adjacent to liver and spleen. Suggest mild fatty infiltration liver. Minimal splenomegaly. There is a 3.9 cm rounded isoechoic area at the splenic ileum of uncertain etiology this may be splenule. 2. Acute on chronic kidney disease. Creatinine 1.46 on admission repeat creatinine 1.24. Continue IV fluids. We'll continue to monitor. Creatinine improving to 0.9. 3. Chronic abdominal pain due to reoccurring ascites. At this time that he seems to be minimal. Patient is maintained on Aldactone 50 mg daily. Patient reports that this has been working for outpatient has not required paracentesis 4. History of diverticulitis with ileostomy placement. During previous admissions patient was evaluated by general surgery due to ostomy pain and no surgical intervention was recommended at that time. Patient was a 5 she should follow-up with [place] surgeon who originally perform surgery to evaluate ileostomy site 5. History of MRSA and patient stool. Patient has completed treatment 6. History of nonalcoholic liver cirrhosis 7. History of hepatocellular carcinoma status post chemo embolization 2012, 2015 2017. Patient follows with oncology services. 8. History of pancytopenia due to known liver cancer secondary to liver cirrhosis 9. Insulin-dependent diabetes mellitus. Hemoglobin A1c during previous admission 7.1. Home meds resumed 10. Elevated liver enzymes due to known chronic liver malignancy 11. Iron deficiency anemia. Continue ferrous sulfate 12. Hypotension. Blood pressures in the 90s. Home meds have been resumed parameters have been set 13. Depression. Patient was started on Wellbutrin. Last admission. Patient was follow-up PCP for further management DVT prophylaxis SCDs due to thrombocytopenia. GI prophylaxis Pepcid Patient takes MS Contin plus MSIR at home. Home meds will be resumed
[2019-01-07] MEDS: MORPHINE SULFATE IR 15 MG TABLET PO PRN ×3 (15:20→22:11)
[2019-01-07 17:07] LABS: Glucose,Whole Blood 128 mg/dL (75-99)
[2019-01-07 20:19] LABS: Glucose,Whole Blood 133 mg/dL (75-99)
--- NOTE | 2019-01-07 22:32 | PN ---
PROGRESS NOTE DATE OF SERVICE: 01/07/2019 REASON FOR FOLLOWUP: Urinary tract infection. INTERVAL HISTORY: The patient did have a low-grade fever this morning of 100.9. The patient is afebrile. The patient apparently is feeling better. She is breathing comfortably. Denies any chest pain or any cough. No abdominal pain, no diarrhea. PHYSICAL EXAMINATION: Blood pressure 112/53 with a pulse of 73, temperature 98.2, she is 100% on room air. GENERAL DESCRIPTION: An elderly female lying in bed in no distress. RESPIRATORY SYSTEM: Unlabored breathing, clear to auscultation anteriorly. HEART: S1, S2. Regular rate and rhythm. ABDOMEN: Soft, no tenderness. LABS: Hemoglobin is 10.8, white count 3.6, BUN of 12, creatinine 1.06. Urine culture so far negative. Blood cultures were negative. DIAGNOSTIC IMPRESSION AND PLAN: Patient with a urinary tract infection. Outpatient culture with MRSA, Enterococcus faecalis, currently on vancomycin. Did have a low-grade fever today. However, the blood and urine culture have been negative. Possible mild cystitis. The patient received a few days of vancomycin which should be more than enough. Hopefully, will not require any antibiotic on discharge. The patient remains to be afebrile and symptoms continued to improve. Continue supportive care. MMODL / IJN: [id number] /
[2019-01-08] MEDS: SODIUM CHLORIDE 0.9% 1,000 ML IV SCH ×3 (03:47→21:31)
[2019-01-08] MEDS ORDERED: VANCOMYCIN TROUGH DUE 1 EACH MISC MISCELLANE ONE (07:00)
[2019-01-08 07:38] LABS: Glucose,Whole Blood 108 mg/dL (75-99)
[2019-01-08] MEDS: FERROUS SULFATE 325 MG TAB PO SCH ×2 (07:44→21:30)
[2019-01-08] MEDS: PANTOPRAZOLE 40 MG TABLET PO SCH ×2 (07:44→15:57)
[2019-01-08] MEDS: SPIRONOLACTONE 25 MG TAB PO SCH ×2 (07:44→21:31)
[2019-01-08] MEDS: DICYCLOMINE 10 MG CAP PO SCH ×3 (07:45→21:31)
[2019-01-08] MEDS: METOPROLOL TARTRATE 12.5 MG TAB PO SCH (07:45)
[2019-01-08] MEDS: SUCRALFATE 1 GM TAB PO SCH ×4 (07:45→21:31)
[2019-01-08] MEDS: MAGNESIUM OXIDE 400 MG TAB PO SCH (07:45)
[2019-01-08] MEDS: clonazePAM 0.5 MG TAB PO SCH (07:45)
[2019-01-08] MEDS: PREGABALIN 25 MG CAP PO SCH ×3 (07:45→21:31)
[2019-01-08] MEDS: MORPHINE SULFATE ER 15 MG TABLET PO SCH ×2 (07:45→21:30)
[2019-01-08] MEDS: TORSEMIDE 20 MG TAB PO SCH (07:46)
[2019-01-08] MEDS: INSULIN ASPART (NovoLOG) 100 UNIT/ML VIAL SQ SCH ×4 (07:47→21:32)
[2019-01-08] MEDS: LACTULOSE 20 GM/30 ML CUP PO SCH ×2 (07:47→21:32)
[2019-01-08] MEDS: buPROPion SR 150 MG TABLET.ER PO SCH (07:47)
[2019-01-08] MEDS: INSULIN REGULAR 100 UNIT/ML VIAL SQ SCH ×3 (07:47→17:44)
[2019-01-08] MEDS: INSULIN NPH 300 UNIT/3 ML VIAL SQ SCH ×2 (07:49→21:32)
[2019-01-08] MEDS: VANCOMYCIN 1,500 MG in SODIUM CHLORIDE 0.9% 250 ML IVPB SCH ×2 (07:49→23:20)
[2019-01-08 07:58] LABS: Anisocytosis Slight; Basophils % (A) 0 %; Eosinophils # (A) 0.2 k/uL (0-0.7); Eosinophils % (A) 6 %; HCT 34.1 % (34.0-46.0); HGB 10.7 gm/dL (11.4-16.0); Hypochromasia Moderate; Lymphocytes % (A) 32 %; MCH 31.5 pg (25.0-35.0); MCHC 31.3 g/dL (31.0-37.0); MCV 100.5 fL (80.0-100.0); Macrocytosis Moderate; Mean Platelet Volume 9.6; Monocytes # (A) 0.3 k/uL (0-1.0); Monocytes % (A) 8 %; Neutrophils # (A) 1.7 k/uL (1.3-7.7); Neutrophils % (A) 52 %; RBC 3.39 m/uL (3.80-5.40); RDW 18.9 % (11.5-15.5); WBC 3.3 k/uL (3.8-10.6)
[2019-01-08 07:59] LABS: Platelet Count 56 k/uL (150-450)
[2019-01-08 08:30] LABS: Albumin 2.2 g/dL (3.5-5.0); Calcium 7.9 mg/dL (8.4-10.2); Potassium 3.8 mmol/L (3.5-5.1); Total Bilirubin 1.7 mg/dL (0.2-1.3); Total Protein 5.3 g/dL (6.3-8.2)
--- NOTE | 2019-01-08 09:51 | P.PN ---
Subjective Progress Note Date: 01/08/19 This is a 73-year-old female patient well-known to my services. Patient presented to the emergency room with complaints of UTI positive for MRSA. Patient presented to the emergency room approximately 5 days prior for abdominal discomfort and at that time was positive for UTI. Patient was discharged home with antibiotic. Since that time urinary culture has shown growth with MRSA. Patient does have past medical history of primary liver cancer, diabetes mellitus, hypertension MRSA and urine MRSA in stool anxiety and depression. Patient also has standing order for when necessary paracentesis. During previous admission hospice discussion was held due to patient's frequent admissions and chronic pain issues. Patient declined hospice care at that time. Patient also advised during previous admission the importance of follow-up with oncology services. Patient also has been worked up due to abdominal pain. Patient does have ostomy from previous surgery done at [facility] approximately 10 years ago. Patient was evaluated by our surgical services during previous admission. Recommending follow-up age on surgeon for further evaluation of ongoing chronic abdominal pain. Dr. Esparza has been consulted for infectious disease. Patient started on vancomycin for IV antibiotics. Urine culture ordered. At this time patient is complaining of some abdominal discomfort which is chronic. Patient denies chest pain or shortness of breath. Patient abdominal ascites does appear to be minimal. Patient is complaining of some burning with urination. On 01/06/2019 patient is alert and oriented 3. Patient is complaining of some abdominal discomfort. Patient remains on IV vancomycin per infectious disease. At this time patient denies chest pain or shortness breath. Patient denies any nausea vomiting or diarrhea. Patient denies any urinary burning or frequency. 01/07/2019 patient is seen and examined on the medical floor she is alert and oriented 3 she is complaining of abdominal pain otherwise she denies any complaints there is no fever or chills no headache or dizziness no chest pain no shortness of breath no cough no nausea or vomiting no burning was urination no frequency or urgency and no hematuria. On 01/08/2019 patient was seen and examined on the medical floor she is alert and oriented 3 she is complaining of nausea and abdominal discomfort otherwise she denies any complaints there is no fever or chills no headache or dizziness no chest pain no shortness of breath no cough no vomiting no diarrhea and no urinary symptoms Objective - Vital Signs Vital signs: Vital Signs Temp 98.4 F 01/08/19 07:00 Pulse 81 01/08/19 07:00 Resp 16 01/08/19 07:00 BP 116/59 01/08/19 07:00 Pulse Ox 100 01/08/19 07:00 Intake & Output 01/07/19 01/08/19 01/08/19 18:59 06:59 18:59 Intake Total 1050 Balance 1050 Intake: Intake, IV Titration 1050 Amount Sodium Chloride 0.9% 1, 800 000 ml @ 100 mls/hr IV . Q10H JENNY Rx#:[id number] Vancomycin 1,500 mg In 250 Sodium Chloride 0.9% 250 ml @ 125 mls/hr IVPB Q16H JENNY Rx#:[id number] Other: Voiding Method Toilet Toilet Toilet # Voids 3 - Exam Head normocephalic and atraumatic Neck supple no JVD no goiter Lungs clear to auscultation bilaterally no wheezing or crackles Heart regular rate and rhythm S1-S2, no rub or gallop Abdomen is soft nontender nondistended positive bowel sounds no hepatosplenomegaly. Minimal abdominal ascites noted. Extremities no edema no cyanosis or clubbing Neuro alert and orientated to 3 - Labs CBC & Chem 7: 01/08/19 07:36 01/08/19 07:36 Labs: Abnormal Lab Results - Last 24 Hours (Table) 01/07/19 01/07/19 01/07/19 Range/Units 11:48 17:05 20:17 WBC (3.8-10.6) k/uL RBC (3.80-5.40) m/uL Hgb (11.4-16.0) gm/dL MCV (80.0-100.0) fL RDW (11.5-15.5) % Plt Count (150-450) k/uL Chloride (98-107) mmol/L Creatinine (0.52-1.04) mg/dL Glucose (74-99) mg/dL POC Glucose (mg/dL) 209 H 128 H 133 H (75-99) mg/dL Calcium (8.4-10.2) mg/dL Total Bilirubin (0.2-1.3) mg/dL AST (14-36) U/L Alkaline Phosphatase (38-126) U/L Total Protein (6.3-8.2) g/dL Albumin (3.5-5.0) g/dL 01/08/19 01/08/19 01/08/19 Range/Units 07:25 07:36 07:36 WBC 3.3 L (3.8-10.6) k/uL RBC 3.39 L (3.80-5.40) m/uL Hgb 10.7 L (11.4-16.0) gm/dL MCV 100.5 H (80.0-100.0) fL RDW 18.9 H (11.5-15.5) % Plt Count 56 L (150-450) k/uL Chloride 109 H (98-107) mmol/L Creatinine 1.06 H (0.52-1.04) mg/dL Glucose 113 H (74-99) mg/dL POC Glucose (mg/dL) 108 H (75-99) mg/dL Calcium 7.9 L (8.4-10.2) mg/dL Total Bilirubin 1.7 H (0.2-1.3) mg/dL AST 50 H (14-36) U/L Alkaline Phosphatase 188 H (38-126) U/L Total Protein 5.3 L (6.3-8.2) g/dL Albumin 2.2 L (3.5-5.0) g/dL Microbiology - Last 24 Hours (Table) 01/04/19 16:18 Blood Culture - Preliminary Blood No Growth after 72 hours Assessment and Plan Plan: 1. Urinary tract infection positive for MRSA. Urine and blood cultures ordered. Infectious disease is following. Patient remains on IV vancomycin. Ultrasound of abdomen completed showing minimal ascites adjacent to liver and spleen. Suggest mild fatty infiltration liver. Minimal splenomegaly. There is a 3.9 cm rounded isoechoic area at the splenic ileum of uncertain etiology this may be splenule. 2. Acute on chronic kidney disease. Creatinine 1.46 on admission repeat creatinine 1.24. Continue IV fluids. We'll continue to monitor. Creatinine improving to 0.9. 3. Chronic abdominal pain due to reoccurring ascites. At this time that he seems to be minimal. Patient is maintained on Aldactone 50 mg daily. Patient reports that this has been working for outpatient has not required paracentesis 4. History of diverticulitis with ileostomy placement. During previous admissions patient was evaluated by general surgery due to ostomy pain and no surgical intervention was recommended at that time. Patient was a 5 she should follow-up with [place] surgeon who originally perform surgery to evaluate ileostomy site 5. History of MRSA and patient stool. Patient has completed treatment 6. History of nonalcoholic liver cirrhosis 7. History of hepatocellular carcinoma status post chemo embolization 2012, 2015 2017. Patient follows with oncology services. 8. History of pancytopenia due to known liver cancer secondary to liver cirrhosis 9. Insulin-dependent diabetes mellitus. Hemoglobin A1c during previous admission 7.1. Home meds resumed 10. Elevated liver enzymes due to known chronic liver malignancy 11. Iron deficiency anemia. Continue ferrous sulfate 12. Hypotension. Blood pressures in the 90s. Home meds have been resumed parameters have been set 13. Depression. Patient was started on Wellbutrin. Last admission. Patient was follow-up PCP for further management DVT prophylaxis SCDs due to thrombocytopenia. GI prophylaxis Pepcid Patient takes MS Contin plus MSIR at home. Home meds will be resumed. Patient improving gradually will discuss antibiotic treatment with infectious disease
[2019-01-08 11:47] LABS: Glucose,Whole Blood 181 mg/dL (75-99)
[2019-01-08 17:26] LABS: Glucose,Whole Blood 124 mg/dL (75-99)
[2019-01-08 20:38] LABS: Glucose,Whole Blood 237 mg/dL (75-99)
--- NOTE | 2019-01-09 06:12 | PN ---
PROGRESS NOTE DATE OF SERVICE: 01/08/2019 REASON FOR FOLLOWUP: Urinary tract infection. INTERVAL HISTORY: The patient is currently afebrile. The patient is breathing comfortably. Denies having any chest pain or cough. No nausea, vomiting, or any diarrhea. PHYSICAL EXAMINATION: On examination, blood pressure 111/74 with a pulse of 50, temperature 98.9. She is 98% on room air. General description is an elderly female lying in bed in no distress. RESPIRATORY SYSTEM: Unlabored breathing, clear to auscultation anteriorly. HEART: S1, S2. Regular rate and rhythm. ABDOMEN: Soft, no tenderness. LABS: Hemoglobin 10.7, white count 3.3 with a BUN of 13, creatinine 1.06. Blood and urine culture has been negative. DIAGNOSTIC IMPRESSION AND PLAN: Patient admitted to the hospital with urinary tract infection failing outpatient oral Bactrim DS therapy where the urine did show both an Escherichia coli as well as the Enterococcus. The patient has received about 5 days of IV vancomycin that should be enough for a cystitis where there is no evidence of any infection. Vanco can be safely discontinued on discharge. Continue supportive care. MMODL / IJN: [id number] /
[2019-01-09 07:32] LABS: Glucose,Whole Blood 103 mg/dL (75-99)
[2019-01-09 08:00] VITALS: BP 95/58; PULSE 57; RESP 16; TEMP 98.4
[2019-01-09] MEDS: TORSEMIDE 20 MG TAB PO SCH (08:32)
[2019-01-09] MEDS: PREGABALIN 25 MG CAP PO SCH (08:32)
[2019-01-09] MEDS: METOPROLOL TARTRATE 12.5 MG TAB PO SCH (08:33)
[2019-01-09] MEDS: PANTOPRAZOLE 40 MG TABLET PO SCH (08:33)
[2019-01-09] MEDS: clonazePAM 0.5 MG TAB PO SCH (08:33)
[2019-01-09] MEDS: MORPHINE SULFATE ER 15 MG TABLET PO SCH (08:33)
[2019-01-09] MEDS: DICYCLOMINE 10 MG CAP PO SCH (08:33)
[2019-01-09] MEDS: SPIRONOLACTONE 25 MG TAB PO SCH (08:33)
[2019-01-09] MEDS: MAGNESIUM OXIDE 400 MG TAB PO SCH (08:33)
[2019-01-09] MEDS: FERROUS SULFATE 325 MG TAB PO SCH (08:33)
[2019-01-09] MEDS: buPROPion SR 150 MG TABLET.ER PO SCH (08:33)
[2019-01-09] MEDS: INSULIN ASPART (NovoLOG) 100 UNIT/ML VIAL SQ SCH ×2 (08:34→12:13)
[2019-01-09] MEDS: SUCRALFATE 1 GM TAB PO SCH ×2 (08:34→12:12)
[2019-01-09] MEDS: INSULIN REGULAR 100 UNIT/ML VIAL SQ SCH ×2 (08:34→12:12)
[2019-01-09] MEDS: INSULIN NPH 300 UNIT/3 ML VIAL SQ SCH (08:34)
[2019-01-09] MEDS: SODIUM CHLORIDE 0.9% 1,000 ML IV SCH (08:35)
[2019-01-09] MEDS: LACTULOSE 20 GM/30 ML CUP PO SCH (08:36)
[2019-01-09 10:01] LABS: Anisocytosis Slight; Basophils % (A) 1 %; Eosinophils # (A) 0.2 k/uL (0-0.7); Eosinophils % (A) 5 %; HCT 32.9 % (34.0-46.0); HGB 10.7 gm/dL (11.4-16.0); Lymphocytes # (A) 0.8 k/uL (1.0-4.8); Lymphocytes % (A) 21 %; MCH 32.6 pg (25.0-35.0); MCHC 32.4 g/dL (31.0-37.0); MCV 100.6 fL (80.0-100.0); Macrocytosis Moderate; Mean Platelet Volume 8.9; Monocytes # (A) 0.3 k/uL (0-1.0); Monocytes % (A) 7 %; Neutrophils # (A) 2.6 k/uL (1.3-7.7); Neutrophils % (A) 66 %; RBC 3.27 m/uL (3.80-5.40); RDW 19.2 % (11.5-15.5)
[2019-01-09 10:07] LABS: Platelet Count 48 k/uL (150-450)
[2019-01-09 10:10] LABS: Albumin 2.3 g/dL (3.5-5.0); Calcium 7.9 mg/dL (8.4-10.2); Potassium 3.8 mmol/L (3.5-5.1); Total Bilirubin 1.2 mg/dL (0.2-1.3); Total Protein 5.4 g/dL (6.3-8.2)
[2019-01-09 12:00] LABS: Glucose,Whole Blood 155 mg/dL (75-99)
--- NOTE | 2019-01-09 13:18 | P.DS ---
Providers Date of admission: 01/06/19 10:20 Expected date of discharge: 01/09/19 Attending physician: Artemio Lea Consults: 01/05/19 08:41 Consult Physician Routine Consulting Provider: Jaylene Esparza Consult Reason/Comments: MRSA urine Do you want consulting provider notified?: Yes Primary care physician: Gilma Martinez Hospital Course: Discharge diagnosis 1. Urinary tract infection positive for MRSA. Urine and blood cultures ordered. Infectious disease is following. Patient remains on IV vancomycin. Ultrasound of abdomen completed showing minimal ascites adjacent to liver and spleen. Suggest mild fatty infiltration liver. Minimal splenomegaly. There is a 3.9 cm rounded isoechoic area at the splenic ileum of uncertain etiology this may be splenule. Urine culture currently negative. Blood culture negative. Discussed with infectious disease Dr. Esparza. Patient has been cleared for discharge. Patient has completed 5 days of vancomycin, urine culture is negative. Per infectious disease patient to longer requires antibiotics discharge 2. Acute on chronic kidney disease. Creatinine 1.46 on admission repeat creatinine 1.24. Continue IV fluids. We'll continue to monitor. Creatinine improving to 1.07 3. Chronic abdominal pain due to reoccurring ascites. At this time that he seems to be minimal. Patient is maintained on Aldactone 50 mg daily. Patient reports that this has been working for outpatient has not required paracentesis 4. History of diverticulitis with ileostomy placement. During previous admissions patient was evaluated by general surgery due to ostomy pain and no surgical intervention was recommended at that time. Patient was a 5 she should follow-up with [place] surgeon who originally perform surgery to evaluate ileostomy site 5. History of MRSA and patient stool. Patient has completed treatment 6. History of nonalcoholic liver cirrhosis 7. History of hepatocellular carcinoma status post chemo embolization 2012, 2016 2018. Patient follows with oncology services. 8. History of pancytopenia due to known liver cancer secondary to liver cirrhosis 9. Insulin-dependent diabetes mellitus. Hemoglobin A1c during previous admission 7.1. Home meds resumed 10. Elevated liver enzymes due to known chronic liver malignancy 11. Iron deficiency anemia. Continue ferrous sulfate 12. Hypotension. Blood pressures in the 90s. Home meds have been resumed parameters have been set 13. Depression. Patient was started on Wellbutrin. Last admission. Patient was follow-up PCP for further management Hospital course This is a 73-year-old female patient well-known to my services. Patient presented to the emergency room with complaints of UTI positive for MRSA. Patient presented to the emergency room approximately 5 days prior for abdominal discomfort and at that time was positive for UTI. Patient was discharged home with antibiotic. Since that time urinary culture has shown growth with MRSA. Patient does have past medical history of primary liver cancer, diabetes mellitus, hypertension MRSA and urine MRSA in stool anxiety and depression. Patient also has standing order for when necessary paracentesis. During previous admission hospice discussion was held due to patient's frequent admissions and chronic pain issues. Patient declined hospice care at that time. Patient also advised during previous admission the importance of follow-up with oncology services. Patient also has been worked up due to abdominal pain. Patient does have ostomy from previous surgery done at [facility] approximately 10 years ago. Patient was evaluated by our surgical services during previous admission. Recommending follow-up age on surgeon for further evaluation of ongoing chronic abdominal pain. Dr. Esparza has been consulted for infectious disease. Patient started on vancomycin for IV antibiotics. Urine culture ordered. At this time patient is complaining of some abdominal discomfort which is chronic. Patient denies chest pain or shortness of breath. Patient abdominal ascites does appear to be minimal. Patient is complaining of some burning with urination. On 01/06/2019 patient is alert and oriented 3. Patient is complaining of some abdominal discomfort. Patient remains on IV vancomycin per infectious disease. At this time patient denies chest pain or shortness breath. Patient denies any nausea vomiting or diarrhea. Patient denies any urinary burning or frequency. 01/07/2019 patient is seen and examined on the medical floor she is alert and oriented 3 she is complaining of abdominal pain otherwise she denies any complaints there is no fever or chills no headache or dizziness no chest pain no shortness of breath no cough no nausea or vomiting no burning was urination no frequency or urgency and no hematuria. On 01/08/2019 patient was seen and examined on the medical floor she is alert and oriented 3 she is complaining of nausea and abdominal discomfort otherwise she denies any complaints there is no fever or chills no headache or dizziness no chest pain no shortness of breath no cough no vomiting no diarrhea and no urinary symptoms. On 01/09/2018 patient is alert and oriented 3. Discussed case with infectious disease patient can be DC'd without antibiotics. Urine culture negative. Patient denies chest pain or shortness breath. Patient denies nausea vomiting or diarrhea. Patient denies any urinary burning or frequency. Patient's torsemide has been decreased to daily instead of twice a day due to acute kidney injury and hypotension I performed an examination of the patient and discussed their management with the Nurse Practitioner. I have reviewed the Nurse Practitioner's notes and agree with the documented findings and plan of care Patient Condition at Discharge: Stable Plan - Discharge Summary Discharge Rx Participant: Yes New Discharge Prescriptions: New Morphine Sulfate Ir [MSIR] 15 mg PO Q6HR PRN tablet PRN Reason: SEVERE Pain Torsemide [Demadex] 20 mg PO DAILY 30 Days #30 tab Continue Sucralfate [Carafate] 1 gm PO QID Omeprazole [PriLOSEC] 20 mg PO BID Dicyclomine [Bentyl] 10 mg PO TID Ondansetron [Zofran ODT] 8 mg PO Q8HR PRN PRN Reason: Nausea Metoprolol Tartrate 12.5 mg PO DAILY Insulin Regular, Human [NovoLIN R] 8 unit SQ AC-TID Insulin NPH Human Isophane [NovoLIN N] 18 unit SQ QAM clonazePAM [KlonoPIN] 0.5 mg PO DAILY tab Pregabalin [Lyrica] 25 mg PO TID #9 cap Ferrous Sulfate [Iron (65 MG Elemental)] 325 mg PO BID #60 tab buPROPion SR [Wellbutrin SR] 150 mg PO DAILY #30 tablet.er Spironolactone [Aldactone] 50 mg PO BID 30 Days #60 tab Lactulose 20 gm PO BID Insulin NPH Human Isophane [NovoLIN N] 16 unit SQ HS Magnesium Oxide [William] 500 mg PO DAILY Morphine Sulfate ER [Ms Contin] 15 mg PO Q12H Discontinued Torsemide [Demadex] 20 mg PO BID@0900,1600 30 Days #60 tab Discharge Medication List Dicyclomine [Bentyl] 10 mg PO TID 10/23/18 [History] Omeprazole [PriLOSEC] 20 mg PO BID 10/23/18 [History] Sucralfate [Carafate] 1 gm PO QID 10/23/18 [History] Insulin NPH Human Isophane [NovoLIN N] 18 unit SQ QAM 10/24/18 [History] Insulin Regular, Human [NovoLIN R] 8 unit SQ AC-TID 10/24/18 [History] Metoprolol Tartrate 12.5 mg PO DAILY 10/24/18 [History] Ondansetron [Zofran ODT] 8 mg PO Q8HR PRN 10/24/18 [History] clonazePAM [KlonoPIN] 0.5 mg PO DAILY tab 11/03/18 [Rx] Pregabalin [Lyrica] 25 mg PO TID #9 cap 11/22/18 [Rx] Ferrous Sulfate [Iron (65 MG Elemental)] 325 mg PO BID #60 tab 12/15/18 [Rx] Spironolactone [Aldactone] 50 mg PO BID 30 Days #60 tab 12/21/18 [Rx] buPROPion SR [Wellbutrin SR] 150 mg PO DAILY #30 tablet.er 12/21/18 [Rx] Insulin NPH Human Isophane [NovoLIN N] 16 unit SQ HS 12/30/18 [History] Lactulose 20 gm PO BID 12/30/18 [History] Magnesium Oxide [William] 500 mg PO DAILY 12/30/18 [History] Morphine Sulfate ER [Ms Contin] 15 mg PO Q12H 01/04/19 [History] Morphine Sulfate Ir [MSIR] 15 mg PO Q6HR PRN tablet 01/09/19 [Rx] Torsemide [Demadex] 20 mg PO DAILY 30 Days #30 tab 01/09/19 [Rx] Follow up Appointment(s)/Referral(s): [facility], [NON-STAFF] - 1-2 Days Gilma Martinez MD [Primary Care Provider] - 1-2 days Patient Instructions/Handouts: Urinary Tract Infection in Women (DC) Activity/Diet/Wound Care/Special Instructions: Cardiac, diabetic diet Activity as tolerated, up with walker. Discharge Disposition: HOME SELF-CARE
--- NOTE | 2019-01-09 14:10 | CDI ---
Documentation Clarification Form Date: 01/09/2019 2:04:31 PM From: Maya Ward CCS, CCDS Admit Date: 01/06/2019 10:20:00 AM Patient Name: Charlene Keenan Visit Number: [id number] Discharge Date: ATTENTION: The Clinical Documentation Specialists (CDI) and [facility] Coding Staff appreciate your assistance in clarifying documentation. Please respond to the clarification below the line at the bottom and electronically sign. The CDI & [facility] Coding staff will review the response and follow-up if needed. Please note: Queries are made part of the Legal Health Record. If you have any questions, please contact the author of this message via ITS. Dr. Artemio Lea: Patient was admitted with MRSA UTI. Per the H/P & subsequent documentation: "Acute on chronic kidney disease.Creatinine 1.46 on admission repeat creatinine 1.24.Continue IV fluids. We'll continue to monitor." History/Risk Factors: CKD nos, Chronic abdominal pain due to reoccurring ascites with non-alcoholic cirrhosis, Diverticultiis w/Ileostomy, Hx MRSA, Hepatocellular CA, IDDM, Iron deficiency anemia & depression. Clinical Indicators: Current BUN: 25, Cr. 1.46, GFR 36 Treatment: IV fluids, IV fluid boluses, IV Zofran, IV Vanco, IV Morphine In order to capture the severity of condition, please clarify if the condition signifies: CKD Stage 1 (GFR > 90) CKD Stage 2 (GFR 60-89) CKD Stage 3 (GFR 30-59) CKD Stage 4 (GFR 15-29) CKD Stage 5 (GFR <15) Other, please specify Unable to determine (Last Revision: February 2018) Chronic kidney disease stage III MTDD
--- NOTE | 2019-01-09 14:40 | PN ---
PROGRESS NOTE DATE OF SERVICE: 01/09/2019 REASON FOR FOLLOW UP: Urinary tract infection. INTERVAL HISTORY: The patient is currently afebrile. The patient is breathing comfortably. Denies having any chest pain or any cough. No abdominal pain. Urinary symptom has resolved. PHYSICAL EXAMINATION: Blood pressure 95/58 with a pulse of 57, temperature 98.4, she is 98% on room air. General description is an elderly female, up in the bed in no distress. RESPIRATORY SYSTEM: Unlabored breathing, clear to auscultation anteriorly. HEART: S1, S2. Regular rate and rhythm. ABDOMEN: Soft, no tenderness. LABS: Hemoglobin is 7.7, white count of 4.0, BUN of 12, creatinine 1.07. DIAGNOSTIC IMPRESSION AND PLAN: Patient with admission to hospital for urinary tract infection, failing outpatient Bactrim therapy. Previous culture positive for a methicillin-resistant Staphylococcus aureus and Enterococcus faecalis. Patient has received 5 days of IV vancomycin, should be more than enough for a possible cystitis as clinically doubt any deep infection. Continue with supportive care. Plan of care was discussed with the nurse practitioner for admitting team. MMODL / IJN: [id number] /
== END 2019-01-09 14:12 | disposition home health service (06) | DRG 690 ==
LOC: EC 15:13 → 4MS4W 18:25 → OBSVTOIN 01-06 10:20
PROVIDERS: ADMIT Internal Medicine; ATTEND Internal Medicine
DX: N39.0 Urinary tract infection, site not specified (principal); N17.9 Acute kidney failure, unspecified; R18.8 Other ascites; I95.9 Hypotension, unspecified; D69.6 Thrombocytopenia, unspecified; E11.22 Type 2 diabetes mellitus with diabetic chronic kidney disease; E86.0 Dehydration; K74.60 Unspecified cirrhosis of liver; B95.62 Methicillin resistant Staphylococcus aureus infection as the cause of diseases classified elsewhere; I12.9 Hypertensive chronic kidney disease with stage 1 through stage 4 chronic kidney disease, or unspecified chronic kidney disease; N18.9 Chronic kidney disease, unspecified; D50.9 Iron deficiency anemia, unspecified; F32.9 Major depressive disorder, single episode, unspecified; F41.9 Anxiety disorder, unspecified; G89.29 Other chronic pain; R10.9 Unspecified abdominal pain; K57.90 Diverticulosis of intestine, part unspecified, without perforation or abscess without bleeding; Z79.4 Long term (current) use of insulin; Z79.899 Other long term (current) drug therapy; Z88.5 Allergy status to narcotic agent; Z88.0 Allergy status to penicillin; Z88.8 Allergy status to other drugs, medicaments and biological substances; Z92.21 Personal history of antineoplastic chemotherapy; Z90.710 Acquired absence of both cervix and uterus; Z87.891 Personal history of nicotine dependence; Z86.14 Personal history of Methicillin resistant Staphylococcus aureus infection; Z85.05 Personal history of malignant neoplasm of liver; Z90.49 Acquired absence of other specified parts of digestive tract; Z93.2 Ileostomy status; Z82.49 Family history of ischemic heart disease and other diseases of the circulatory system
CPT/HCPCS: 36415; 74019; 76700; 80053; 80202; 81001; 82150; 83036; 83605; 83690; 85025; 87040; 87086; 96365; 96366; 96375; 99285

== ENCOUNTER 2019-01-25 20:19 | Inpatient (IN) | payer MEDICARE ==
[2019-01-25] MEDS ORDERED: ONDANSETRON ODT 8 MG TAB.RAPDIS PO STA (21:26)
[2019-01-25] MEDS ORDERED: SODIUM CHLORIDE 0.9% 1,000 ML IV STA (21:26)
--- NOTE | 2019-01-25 21:26 | ED ---
Nausea/Vomiting/Diarrhea HPI - General Chief complaint: Nausea/Vomiting/Diarrhea Stated complaint: Vomiting Source: patient, EMS Mode of arrival: EMS Limitations: physical limitation - History of Present Illness Initial comments: Charlene is a 73-year-old female with a history of liver cancer status post chemotherapy who presents the emergency department today for evaluation of n ausea and vomiting. Patient reports she's been experiencing intermittent nausea and episodes of nonbloody nonbilious emesis for approximately 5 days. Patient reports that throughout the day today she has had multiple episodes of nausea and vomiting. She reports that this evening she began to feel very weak and dehydrated which prompted her call EMS to bring her hospital. Patient also states that this morning she woke with some heaviness in her chest was uncertain if it was related to the nausea and multiple episodes of vomiting. The heaviness has resolved at this time. Patient denies any fevers, chills or shortness of breath. She reports she feels generally fatigued, she's had progressively worsening weakness should which she attributes to not being able to eat or drink much over the past few days due to the persistent nausea. Patient states she was scheduled follow-up with [place] stro[place] but was feeling too unwell to wait until that time. - Related Data Home Medications Medication Instructions Recorded Confirmed Dicyclomine [Bentyl] 10 mg PO DAILY 10/23/18 01/25/19 Omeprazole [PriLOSEC] 20 mg PO BID 10/23/18 01/25/19 Sucralfate [Carafate] 1 gm PO QID 10/23/18 01/25/19 Insulin NPH Human Isophane 18 unit SQ BID 10/24/18 01/25/19 [NovoLIN N] Insulin Regular, Human [NovoLIN R] 10 unit SQ AC-TID 10/24/18 01/25/19 Magnesium Oxide [William] 500 mg PO DAILY 12/30/18 01/25/19 Cholecalciferol [Vitamin D3] 4,000 unit PO DAILY 01/16/19 01/25/19 clonazePAM [KlonoPIN] 0.5 mg PO DAILY PRN 01/25/19 01/25/19 Previous Rx's Medication Instructions Recorded Ferrous Sulfate [Iron (65 MG 325 mg PO BID #60 tab 12/15/18 Elemental)] Spironolactone [Aldactone] 50 mg PO BID 30 Days #60 tab 12/21/18 buPROPion SR [Wellbutrin SR] 150 mg PO DAILY #30 tablet.er 12/21/18 Torsemide [Demadex] 20 mg PO DAILY 30 Days #30 tab 01/09/19 Allergies Allergy/AdvReac Type Severity Reaction Status Date / Time amlodipine Allergy Rash/Hives Verified 01/25/19 21:03 oxycodone Allergy Rash/Hives Verified 01/25/19 21:03 Penicillins Allergy Rash/Hives Verified 01/25/19 21:03 hydromorphone [From Dilaudid] AdvReac Mild tactile Verified 01/25/19 21:03 disturbance GREG Inhibitors AdvReac Cough Verified 01/25/19 21:03 sodium dodecyclbenzene Allergy Rash/Hives Uncoded 01/25/19 20:31 sulfonate Review of Systems ROS Statement: Those systems with pertinent positive or pertinent negative responses have been documented in the HPI. ROS Other: All systems not noted in ROS Statement are negative. Past Medical History Past Medical History: Cancer, Diabetes Mellitus, Hypertension, Liver Disease Additional Past Medical History / Comment(s): liver ca- had chemo 10-03-18,past ascities-paracentesis, ulcer(sx),diverticulitis, History of Any Multi-Drug Resistant Organisms: MRSA Date of last positivie culture/infection: 12/30/18 MDRO Source:: MRSA URINE Past Surgical History: Appendectomy, Bowel Resection, Section, Cholecystectomy, Hysterectomy, Tonsillectomy Additional Past Surgical History / Comment(s): rt rotator cuff repair,carpal tunnel release .liver bx,ilieostomy ,paracentesis, chemo, embolizations of liver tumors Past Anesthesia/Blood Transfusion Reactions: No Reported Reaction Past Psychological History: Anxiety, Depression Smoking Status: Never smoker Past Alcohol Use History: None Reported Past Drug Use History: None Reported - Past Family History Mother History Unknown: Yes Family Medical History: Congestive Heart Failure (CHF) General Exam - General Exam Comments Initial Comments: Physical Exam GENERAL: Chronically ill appearing HENT: Normocephalic, Atraumatic. EYES: PERRL, EOMI PULMONARY: Unlabored respirations. No audible rales rhonchi or wheezing was noted. CARDIOVASCULAR: There is a regular rate and rhythm without any murmurs gallops or rubs. ABDOMEN: Soft and nontender with normal bowel sounds. SKIN: Skin is clear with no lesions or rashes and otherwise unremarkable. : Deferred NEUROLOGIC: Patient is alert and oriented x3. Moving all extremities spontaneously MUSCULOSKELETAL: Normal extremities with adequate strength and full range of motion. No lower extremity swelling or edema. No calf tenderness. PSYCHIATRIC: Normal psychiatric evaluation. Limitations: no limitations Limitations: physical limitation Course Vital Signs 01/25/19 01/25/19 01/26/19 20:25 21:40 00:52 Temperature 98.7 F 98.8 F Pulse Rate 55 L 53 L 55 L Respiratory 16 16 16 Rate Blood Pressure 107/52 123/73 128/69 O2 Sat by Pulse 98 97 98 Oximetry Medical Decision Making - Medical Decision Making Patient was seen and evaluated, history obtained from patient and review of medical record Patient with days of N/V and some chest pressure earlier today, asymptomatic now Labs and imaging were reviewed EKG non-ischemic Labs with elevated trop 0.09 - will trend Patient care discussed with Dr. Snyder who accepts admission with consult to cardiology - Lab Data Result diagrams: 01/25/19 21:45 01/25/19 21:45 Lab Results 01/25/19 01/25/19 01/25/19 Range/Units 21:45 21:45 21:45 WBC 4.6 (3.8-10.6) k/uL RBC 3.81 (3.80-5.40) m/uL Hgb 12.4 (11.4-16.0) gm/dL Hct 37.8 (34.0-46.0) % MCV 99.2 (80.0-100.0) fL MCH 32.5 (25.0-35.0) pg MCHC 32.7 (31.0-37.0) g/dL RDW 18.1 H (11.5-15.5) % Plt Count 45 L (150-450) k/uL Neutrophils % 59 % Lymphocytes % 24 % Monocytes % 8 % Eosinophils % 6 % Basophils % 1 % Neutrophils # 2.7 (1.3-7.7) k/uL Lymphocytes # 1.1 (1.0-4.8) k/uL Monocytes # 0.4 (0-1.0) k/uL Eosinophils # 0.3 (0-0.7) k/uL Basophils # 0.0 (0-0.2) k/uL Anisocytosis Slight Macrocytosis Slight PT (9.0-12.0) sec INR (<1.2) APTT (22.0-30.0) sec Sodium 133 L (137-145) mmol/L Potassium 4.5 (3.5-5.1) mmol/L Chloride 103 (98-107) mmol/L Carbon Dioxide 24 (22-30) mmol/L Anion Gap 6 mmol/L BUN 20 H (7-17) mg/dL Creatinine 1.21 H (0.52-1.04) mg/dL Est GFR (CKD-EPI)AfAm 52 (>60 ml/min/1.73 sqM) Est GFR (CKD-EPI)NonAf 45 (>60 ml/min/1.73 sqM) Glucose 104 H (74-99) mg/dL Calcium 8.9 (8.4-10.2) mg/dL Total Bilirubin 1.8 H (0.2-1.3) mg/dL AST 63 H (14-36) U/L ALT 37 (9-52) U/L Alkaline Phosphatase 233 H (38-126) U/L Troponin I 0.095 H* (0.000-0.034) ng/mL Total Protein 6.8 (6.3-8.2) g/dL Albumin 3.0 L (3.5-5.0) g/dL Amylase 48 (30-110) U/L Lipase 27 (23-300) U/L Urine Color Urine Appearance (Clear) Urine pH (5.0-8.0) Ur Specific [place] (1.001-1.035) Urine Protein (Negative) Urine Glucose (UA) (Negative) Urine Ketones (Negative) Urine Blood (Negative) Urine Nitrite (Negative) Urine Bilirubin (Negative) Urine Urobilinogen (<2.0) mg/dL Ur Leukocyte Esterase (Negative) Urine RBC (0-5) /hpf Urine WBC (0-5) /hpf Urine Bacteria (None) /hpf Hyaline Casts (0-2) /lpf 01/25/19 01/25/19 Range/Units 22:15 23:16 WBC (3.8-10.6) k/uL RBC (3.80-5.40) m/uL Hgb (11.4-16.0) gm/dL Hct (34.0-46.0) % MCV (80.0-100.0) fL MCH (25.0-35.0) pg MCHC (31.0-37.0) g/dL RDW (11.5-15.5) % Plt Count (150-450) k/uL Neutrophils % % Lymphocytes % % Monocytes % % Eosinophils % % Basophils % % Neutrophils # (1.3-7.7) k/uL Lymphocytes # (1.0-4.8) k/uL Monocytes # (0-1.0) k/uL Eosinophils # (0-0.7) k/uL Basophils # (0-0.2) k/uL Anisocytosis Macrocytosis PT 13.9 H (9.0-12.0) sec INR 1.4 H (<1.2) APTT 25.7 (22.0-30.0) sec Sodium (137-145) mmol/L Potassium (3.5-5.1) mmol/L Chloride (98-107) mmol/L Carbon Dioxide (22-30) mmol/L Anion Gap mmol/L BUN (7-17) mg/dL Creatinine (0.52-1.04) mg/dL Est GFR (CKD-EPI)AfAm (>60 ml/min/1.73 sqM) Est GFR (CKD-EPI)NonAf (>60 ml/min/1.73 sqM) Glucose (74-99) mg/dL Calcium (8.4-10.2) mg/dL Total Bilirubin (0.2-1.3) mg/dL AST (14-36) U/L ALT (9-52) U/L Alkaline Phosphatase (38-126) U/L Troponin I (0.000-0.034) ng/mL Total Protein (6.3-8.2) g/dL Albumin (3.5-5.0) g/dL Amylase (30-110) U/L Lipase (23-300) U/L Urine Color Yellow Urine Appearance Clear (Clear) Urine pH 5.0 (5.0-8.0) Ur Specific [place] 1.006 (1.001-1.035) Urine Protein Negative (Negative) Urine Glucose (UA) Negative (Negative) Urine Ketones Negative (Negative) Urine Blood Trace H (Negative) Urine Nitrite Negative (Negative) Urine Bilirubin Negative (Negative) Urine Urobilinogen <2.0 (<2.0) mg/dL Ur Leukocyte Esterase Small H (Negative) Urine RBC 2 (0-5) /hpf Urine WBC 4 (0-5) /hpf Urine Bacteria Few H (None) /hpf Hyaline Casts 8 H (0-2) /lpf - EKG Data -: EKG Interpreted by Me EKG shows normal: sinus rhythm Rate: bradycardia EKG Comments: EKG obtained at 2134, rate is 54 there is a P-wave before each QRS, rhythm is si nus bradycardia with a right bundle branch block, there is a leftward axis, there are normal intervals DE 160, curious 140, QTC is 491. There is no acute ST elevations or depressions additional evidence of acute ischemia or infarction. EKG was to EKG obtained on 12/17/2018. There is no significant change in morphology though sinus bradycardia has replaced sinus rhythm. Disposition Clinical Impression: Elevated troponin I level, Nausea and vomiting Disposition: ADMITTED IP TO THIS HOSP Condition: Stable Is patient prescribed a controlled substance at d/c from ED?: No Referrals: Gilma Martinez MD [Primary Care Provider] - 1-2 days
[2019-01-25 22:15] LABS: Anisocytosis Slight; Basophils % (A) 1 %; Eosinophils # (A) 0.3 k/uL (0-0.7); Eosinophils % (A) 6 %; HCT 37.8 % (34.0-46.0); HGB 12.4 gm/dL (11.4-16.0); Lymphocytes # (A) 1.1 k/uL (1.0-4.8); Lymphocytes % (A) 24 %; MCH 32.5 pg (25.0-35.0); MCHC 32.7 g/dL (31.0-37.0); MCV 99.2 fL (80.0-100.0); Macrocytosis Slight; Mean Platelet Volume 8.5; Monocytes # (A) 0.4 k/uL (0-1.0); Monocytes % (A) 8 %; Neutrophils # (A) 2.7 k/uL (1.3-7.7); Neutrophils % (A) 59 %; RBC 3.81 m/uL (3.80-5.40); RDW 18.1 % (11.5-15.5); WBC 4.6 k/uL (3.8-10.6)
[2019-01-25 22:23] LABS: Platelet Count 45 k/uL (150-450)
[2019-01-25 22:29] LABS: Calcium 8.9 mg/dL (8.4-10.2); Potassium 4.5 mmol/L (3.5-5.1); Total Bilirubin 1.8 mg/dL (0.2-1.3); Total Protein 6.8 g/dL (6.3-8.2)
[2019-01-25 22:40] LABS: Appearance,Urine Clear (Clear); Bacteria,Urine Few /hpf; Bilirubin,Urine Negative (Negative); Blood,Urine Trace (Negative); Color,Urine Yellow; Glucose,Urine (UA) Negative (Negative); Hyaline Casts,Urine 8 /lpf (0-2); Ketones,Urine Negative (Negative); Leukocyte Esterase,Urine Small (Negative); Nitrite,Urine Negative (Negative); Protein,Urine Negative (Negative); RBC,Urine 2 /hpf (0-5); Specific Gravity,Urine 1.006 (1.001-1.035); Urobilinogen,Urine <2.0 mg/dL (<2.0); WBC,Urine 4 /hpf (0-5)
--- NOTE | 2019-01-25 23:17 | XR ---
EXAM: XR Abdomen, 1 View CLINICAL HISTORY: ITS.REASON XR Reason: abdominal pain, vomiting TECHNIQUE: Frontal supine view of the abdomen/pelvis. COMPARISON: 01/04/19. FINDINGS: Nonspecific bowel gas pattern. Chronic findings similar to prior. IMPRESSION: Nonspecific bowel gas pattern.
--- NOTE | 2019-01-25 23:20 | XR ---
EXAM: XR Chest, 2 Views CLINICAL HISTORY: ITS.REASON XR Reason: chest pain TECHNIQUE: Frontal and lateral views of the chest. COMPARISON: 12/04/18. FINDINGS: Lungs: No consolidation. Pleural space: Unremarkable. No pneumothorax. Heart: Unremarkable. Mediastinum: Unremarkable. Bones/joints: No acute fracture. IMPRESSION: No acute cardiopulmonary process.
[2019-01-25 23:44] LABS: INR 1.4 (<1.2); Partial Thromboplastin Time 25.7 sec (22.0-30.0); Prothrombin Time 13.9 sec (9.0-12.0)
[2019-01-26] MEDS ORDERED: ASPIRIN 81 MG PO STA (00:33)
[2019-01-26] MEDS ORDERED: NITROGLYCERIN SL TABS 0.4 MG TAB SUBLINGUAL PRN (00:33)
[2019-01-26] MEDS ORDERED: clonazePAM 0.5 MG TAB PO PRN (00:35)
[2019-01-26] MEDS ORDERED: MORPHINE SULFATE 4 MG/ML SYRINGE IVP STA (00:35)
[2019-01-26 02:26] VITALS: BMI 28.8
[2019-01-26 05:57] LABS: Glucose,Whole Blood 92 mg/dL (75-99)
[2019-01-26] MEDS: INSULIN ASPART (NovoLOG) 100 UNIT/ML VIAL SQ SCH ×4 (06:05→20:05)
[2019-01-26] MEDS: TORSEMIDE 20 MG TAB PO SCH (09:13)
[2019-01-26] MEDS: SPIRONOLACTONE 25 MG TAB PO SCH ×2 (09:13→20:02)
[2019-01-26] MEDS: SUCRALFATE 1 GM TAB PO SCH ×4 (09:13→20:02)
[2019-01-26] MEDS: buPROPion SR 150 MG TABLET.ER PO SCH (09:13)
[2019-01-26 11:14] LABS: Albumin 2.6 g/dL (3.5-5.0); Calcium 8.8 mg/dL (8.4-10.2); Total Bilirubin 1.7 mg/dL (0.2-1.3); Total Protein 6.2 g/dL (6.3-8.2)
--- NOTE | 2019-01-26 11:19 | P.CRDCN ---
History of Present Illness Consult date: 01/26/19 History of present illness: This is a 73-year-old female with history of hypertension, liver cancer diagnosed 2010, frequent paracentesis due to ascites, diabetes mellitus who was recently in the hospital with the ascites. Patient now came to the emergency room with complaints of nausea vomiting and weakness. Patient is evidence of mild cardiomyopathy in the past. Patient complaint some heaviness in the chest seemed to be related to nausea and vomiting. By the time patient came to the emergency room tightness has resolved. He and EKGs in the emergency room showed sinus rhythm with right bundle-branch block pattern and evidence of left ventricle hypertrophy. Her lab values showed a troponin value of 0.095, 0.087 and 0.087. The elevation of the troponins appear to be nonspecific. Her creatinine is in the range of 1.2. These are not indicated for acute myocardial infarction. Patient may be dehydrated from nausea and vomiting. I would recommend rehydration. I will get an echocardiogram because of history of previous cardiomyopathy. No further cardiac workup at this time Review of Systems As per the chart Past Medical History Past Medical History: Cancer, Diabetes Mellitus, Hypertension, Liver Disease, Myocardial Infarction ([place]) Additional Past Medical History / Comment(s): liver ca- had chemo dec 2018, past ascities-paracentesis, ulcer(sx),diverticulitis, Last Myocardial Infarction Date:: unk History of Any Multi-Drug Resistant Organisms: MRSA Date of last positivie culture/infection: 12/30/18 MDRO Source:: MRSA URINE Past Surgical History: Appendectomy, Bowel Resection, Section, Cholecystectomy, Hysterectomy, Tonsillectomy Additional Past Surgical History / Comment(s): rt rotator cuff repair,carpal tunnel release .liver bx,ilieostomy ,paracentesis, chemo, embolizations of liver tumors Past Anesthesia/Blood Transfusion Reactions: No Reported Reaction Past Psychological History: Anxiety, Depression Additional Psychological History / Comment(s): Reformed smoker. . Retired. No experience. No animal exposures Smoking Status: Never smoker Past Alcohol Use History: None Reported Additional Past Alcohol Use History / Comment(s): started smoking 1962 and quit 1965 Past Drug Use History: None Reported - Past Family History Mother History Unknown: Yes Family Medical History: Congestive Heart Failure (CHF) Medications and Allergies Home Medications Medication Instructions Recorded Confirmed Type Dicyclomine [Bentyl] 10 mg PO DAILY 10/23/18 01/25/19 History Omeprazole [PriLOSEC] 20 mg PO BID 10/23/18 01/25/19 History Sucralfate [Carafate] 1 gm PO QID 10/23/18 01/25/19 History Insulin NPH Human Isophane 18 unit SQ BID 10/24/18 01/25/19 History [NovoLIN N] Insulin Regular, Human [NovoLIN R] 10 unit SQ AC-TID 10/24/18 01/25/19 History Ferrous Sulfate [Iron (65 MG 325 mg PO BID #60 tab 12/15/18 01/25/19 Rx Elemental)] Spironolactone [Aldactone] 50 mg PO BID 30 Days #60 tab 12/21/18 01/25/19 Rx buPROPion SR [Wellbutrin SR] 150 mg PO DAILY #30 tablet.er 12/21/18 01/25/19 Rx Magnesium Oxide [William] 500 mg PO DAILY 12/30/18 01/25/19 History Torsemide [Demadex] 20 mg PO DAILY 30 Days #30 tab 01/09/19 01/25/19 Rx Cholecalciferol [Vitamin D3] 4,000 unit PO DAILY 01/16/19 01/25/19 History clonazePAM [KlonoPIN] 0.5 mg PO DAILY PRN 01/25/19 01/25/19 History Allergies Allergy/AdvReac Type Severity Reaction Status Date / Time amlodipine Allergy Rash/Hives Verified 01/25/19 21:03 oxycodone Allergy Rash/Hives Verified 01/25/19 21:03 Penicillins Allergy Rash/Hives Verified 01/25/19 21:03 hydromorphone [From Dilaudid] AdvReac Mild tactile Verified 01/25/19 21:03 disturbance GREG Inhibitors AdvReac Cough Verified 01/25/19 21:03 sodium dodecyclbenzene Allergy Rash/Hives Uncoded 01/25/19 20:31 sulfonate Physical Exam Vitals: Vital Signs Temp Pulse Pulse Resp BP BP Pulse Ox 01/26/19 08:00 98.4 F 54 L 18 101/62 97 01/26/19 05:14 59 L 18 85/48 97 01/26/19 04:21 54 L 01/26/19 02:03 98.3 F 54 L 18 91/43 97 01/26/19 00:52 98.8 F 55 L 16 128/69 98 01/25/19 21:40 53 L 16 123/73 97 01/25/19 20:25 98.7 F 55 L 16 107/52 98 Intake and Output 01/25/19 01/26/19 01/26/19 22:59 06:59 14:59 Output Total 0 0 Balance 0 0 Output: Urine 0 0 Other: # Voids 1 Weight 86.183 kg 88.6 kg GENERAL EXAM: Patient is alert and oriented and doesn't appear to be in any acute distress HEENT: Normocephalic. Normal reaction of pupils, equal size, normal range of extraocular motion. No erythema or exudates in the throat. NECK: No masses, no nuchal rigidity. CHEST: No chest wall deformity. LUNGS: Equal air entry with no crackles or wheeze. HEART: S1 and S2 normal with no audible mumurs or gallops. Regular rhythm, femorals equal on both sides.. ABDOMEN: No hepatosplenomegaly, normal bowel sounds, no guarding or rigidity. SKIN: No rashes CENTRAL NERVOUS SYSTEM: No focal deficits. EXTREMITIES: No cyanosis, clubbing or edema. Results 01/25/19 21:45 01/26/19 09:28 Cardiac Enzymes 01/25/19 01/25/19 01/26/19 Range/Units 21:45 21:45 03:41 AST 63 H (14-36) U/L Troponin I 0.095 H* 0.087 H* (0.000-0.034) ng/mL 01/26/19 01/26/19 Range/Units 09:28 09:28 AST 55 H (14-36) U/L Troponin I 0.087 H* (0.000-0.034) ng/mL Coagulation 01/25/19 Range/Units 23:16 PT 13.9 H (9.0-12.0) sec APTT 25.7 (22.0-30.0) sec CBC 01/25/19 Range/Units 21:45 WBC 4.6 (3.8-10.6) k/uL RBC 3.81 (3.80-5.40) m/uL Hgb 12.4 (11.4-16.0) gm/dL Hct 37.8 (34.0-46.0) % Plt Count 45 L (150-450) k/uL Comprehensive Metabolic Panel 01/25/19 01/26/19 Range/Units 21:45 09:28 Sodium 133 L 136 L (137-145) mmol/L Potassium 4.5 4.0 (3.5-5.1) mmol/L Chloride 103 108 H (98-107) mmol/L Carbon Dioxide 24 23 (22-30) mmol/L BUN 20 H 19 H (7-17) mg/dL Creatinine 1.21 H 1.08 H (0.52-1.04) mg/dL Glucose 104 H 116 H (74-99) mg/dL Calcium 8.9 8.8 (8.4-10.2) mg/dL AST 63 H 55 H (14-36) U/L ALT 37 36 (9-52) U/L Alkaline Phosphatase 233 H 212 H (38-126) U/L Total Protein 6.8 6.2 L (6.3-8.2) g/dL Albumin 3.0 L 2.6 L (3.5-5.0) g/dL Current Medications Generic Name Dose Route Start Last Admin Trade Name Freq PRN Reason Stop Dose Admin Aspirin 325 mg 01/27/19 09:00 Aspirin PO DAILY [facility] Bupropion HCl 150 mg 01/26/19 09:00 01/26/19 09:13 Wellbutrin Sr PO 150 mg DAILY JENNY Administration Clonazepam 0.5 mg 01/26/19 00:35 Klonopin PO DAILY PRN Anxiety Insulin Aspart 0 unit 01/26/19 07:30 01/26/19 06:05 Novolog SQ Not Given ACHS [facility] Protocol Nitroglycerin 0.4 mg 01/26/19 00:33 Nitrostat SUBLINGUAL Q5M PRN Chest Pain Spironolactone 50 mg 01/26/19 09:00 01/26/19 09:13 Aldactone PO 50 mg BID JENNY Administration Sucralfate 1 gm 01/26/19 09:00 01/26/19 09:13 Carafate PO 1 gm QID JENNY Administration Torsemide 20 mg 01/26/19 09:00 01/26/19 09:13 Demadex PO 20 mg DAILY JENNY Administration Intake and Output 01/25/19 01/26/19 01/26/19 22:59 06:59 14:59 Output Total 0 0 Balance 0 0 Output: Urine 0 0 Other: # Voids 1 Weight 86.183 kg 88.6 kg 01/25/19 21:45 01/26/19 09:28 EKG Interpretations (text) EKG showed sinus rhythm with right bundle-branch block Assessment and Plan (1) Elevated troponin I level Current Visit: Yes Status: Acute Code(s): R74.8 - ABNORMAL LEVELS OF OTHER SERUM ENZYMES SNOMED Code(s): 547033924 (2) Nausea and vomiting Current Visit: Yes Status: Acute Code(s): R11.2 - NAUSEA WITH VOMITING, UNSPECIFIED SNOMED Code(s): 65306876 (3) History of liver cancer Current Visit: No Status: Acute Code(s): Z85.05 - PERSONAL HISTORY OF MALIGNANT NEOPLASM OF LIVER SNOMED Code(s): 618679674 Plan: I will obtain echocardiogram to assess LV function. Her troponin values are inconsistent with acute myocardial injury pattern. If echo shows a stable findings, no further cardiac workup. Continue with hydration and treatment of nausea and vomiting
[2019-01-26 11:24] LABS: Glucose,Whole Blood 96 mg/dL (75-99)
[2019-01-26 11:30] LABS: Anisocytosis Slight; Basophils % (A) 1 %; Eosinophils # (A) 0.2 k/uL (0-0.7); Eosinophils % (A) 5 %; HGB 11.7 gm/dL (11.4-16.0); Hypochromasia Slight; Lymphocytes % (A) 27 %; MCHC 31.7 g/dL (31.0-37.0); Macrocytosis Moderate; Monocytes # (A) 0.3 k/uL (0-1.0); Monocytes % (A) 7 %; Neutrophils # (A) 2.2 k/uL (1.3-7.7); Neutrophils % (A) 59 %; RBC 3.55 m/uL (3.80-5.40); RDW 18.3 % (11.5-15.5); WBC 3.7 k/uL (3.8-10.6)
[2019-01-26 11:32] LABS: MCV 104.2 fL (80.0-100.0); Platelet Count 50 k/uL (150-450)
--- NOTE | 2019-01-26 11:39 | P.GSCN ---
History of Present Illness Consult date: 01/26/19 Reason for Consult: nausea and vomiting Requesting physician: Severiano Tellez History of present illness: CHIEF COMPLAINT: Nausea and vomiting HISTORY OF PRESENT ILLNESS: 73-year-old female who presented to the emergency room with a chief complaint of nausea and vomiting. General surgery was consulted for further evaluation. The patient was examined at the bedside this morning with Dr. Zhang. The patient states she is feeling well. She denies abdominal pain. She denies any further episodes of nausea or vomiting. She is hungry and requesting to be started on a diet. The patient has an ileostomy which she states has been working well with gas and stool present. PAST MEDICAL HISTORY: See list. PAST SURGICAL HISTORY: See list. MEDICATIONS: See list. ALLERGIES: See list. SOCIAL HISTORY: No illicit drug use. REVIEW OF SYSTEMS: CONSTITUTIONAL: Denies fever or chills. HEENT: Denies blurred vision, vision changes, or eye pain. Denies hemoptysis ENDOCRINE: Denies heat or cold intolerance. CARDIOVASCULAR: Denies chest pain or pressure. RESPIRATORY: No shortness of breath. GASTROINTESTINAL: Currently denies abdominal pain, nausea, or vomiting. NEURO: Denies history of seizures. PSYCH: No depression or suicidal ideation HEMATOLOGIC: Denies bleeding disorders. LYMPHATIC: The patient denies any lumps and bumps around the neck. GENITOURINARY: Denies any blood in urine or increased urinary frequency. MUSCULOSKELETAL: Denies myalgias. Denies joint swelling. Denies decreased range of motion beyond patients baseline. SKIN: Denies pruitis. Denies rash. PHYSICAL EXAM: VITAL SIGNS: Currently stable. GENERAL: Well-developed in no acute distress. HEENT: No sclera icterus. Extraocular movements grossly intact. Moist buccal mucosa. Head is atraumatic, normocephalic. Hears conversational speech. No nasal drainage. NECK: Supple without lymphadenopathy. CHEST: Non-labored respirations and equal bilateral excursions. CARDIOVASCULAR: Regular rate with regular rhythm. Palpable 2+ radial pulses. ABDOMEN: Soft. Nondistended. Nontender. Ileostomy noted with stool. MUSCULOSKELETAL: No clubbing, cyanosis or edema. NEUROLOGIC: No focal or lateralizing signs. Cranial nerves II through XII grossly intact. PSYCH: Appropriate affect. Alert and oriented to person, place and time. SKIN: Well perfused. Good skin turgor. ASSESSMENT: 1. Nausea and vomiting, resolved PLAN: Patients nausea and vomiting has resolved. Patient may begin full liquid diet. Stable from a surgical perspective. Nurse practitioner note has been reviewed by physician. Signing provider agrees with the documented findings, assessment, and plan of care. Past Medical History Past Medical History: Cancer, Diabetes Mellitus, Hypertension, Liver Disease, Myocardial Infarction ([place]) Additional Past Medical History / Comment(s): liver ca- had chemo dec 2018, past ascities-paracentesis, ulcer(sx),diverticulitis, Last Myocardial Infarction Date:: unk History of Any Multi-Drug Resistant Organisms: MRSA Year Discovered:: 12/30/18 MDRO Source:: MRSA URINE Past Surgical History: Appendectomy, Bowel Resection, Section, Cholecystectomy, Hysterectomy, Tonsillectomy Additional Past Surgical History / Comment(s): rt rotator cuff repair,carpal tunnel release .liver bx,ilieostomy ,paracentesis, chemo, embolizations of liver tumors Past Anesthesia/Blood Transfusion Reactions: No Reported Reaction Past Psychological History: Anxiety, Depression Additional Psychological History / Comment(s): Reformed smoker. . Retired. No experience. No animal exposures Smoking Status: Never smoker Past Alcohol Use History: None Reported Additional Past Alcohol Use History / Comment(s): started smoking 1962 and quit 1965 Past Drug Use History: None Reported - Past Family History Mother History Unknown: Yes Family Medical History: Congestive Heart Failure (CHF) Medications and Allergies Home Medications Medication Instructions Recorded Confirmed Type Dicyclomine [Bentyl] 10 mg PO DAILY 10/23/18 01/25/19 History Omeprazole [PriLOSEC] 20 mg PO BID 10/23/18 01/25/19 History Sucralfate [Carafate] 1 gm PO QID 10/23/18 01/25/19 History Insulin NPH Human Isophane 18 unit SQ BID 10/24/18 01/25/19 History [NovoLIN N] Insulin Regular, Human [NovoLIN R] 10 unit SQ AC-TID 10/24/18 01/25/19 History Ferrous Sulfate [Iron (65 MG 325 mg PO BID #60 tab 12/15/18 01/25/19 Rx Elemental)] Spironolactone [Aldactone] 50 mg PO BID 30 Days #60 tab 12/21/18 01/25/19 Rx buPROPion SR [Wellbutrin SR] 150 mg PO DAILY #30 tablet.er 12/21/18 01/25/19 Rx Magnesium Oxide [William] 500 mg PO DAILY 12/30/18 01/25/19 History Torsemide [Demadex] 20 mg PO DAILY 30 Days #30 tab 01/09/19 01/25/19 Rx Cholecalciferol [Vitamin D3] 4,000 unit PO DAILY 01/16/19 01/25/19 History clonazePAM [KlonoPIN] 0.5 mg PO DAILY PRN 01/25/19 01/25/19 History Allergies Allergy/AdvReac Type Severity Reaction Status Date / Time amlodipine Allergy Rash/Hives Verified 01/25/19 21:03 oxycodone Allergy Rash/Hives Verified 01/25/19 21:03 Penicillins Allergy Rash/Hives Verified 01/25/19 21:03 hydromorphone [From Dilaudid] AdvReac Mild tactile Verified 01/25/19 21:03 disturbance GREG Inhibitors AdvReac Cough Verified 01/25/19 21:03 sodium dodecyclbenzene Allergy Rash/Hives Uncoded 01/25/19 20:31 sulfonate Surgical - Exam Vital Signs Temp Pulse Resp BP Pulse Ox 98.7 F 55 L 16 107/52 98 01/25/19 20:25 01/25/19 20:25 01/25/19 20:25 01/25/19 20:25 01/25/19 20:25 Results - Labs 01/26/19 09:28 01/26/19 09:28 Abnormal Lab Results - Last 24 Hours (Table) 01/25/19 01/25/19 01/25/19 Range/Units 21:45 21:45 21:45 WBC (3.8-10.6) k/uL RBC (3.80-5.40) m/uL MCV (80.0-100.0) fL RDW 18.1 H (11.5-15.5) % Plt Count 45 L (150-450) k/uL PT (9.0-12.0) sec INR (<1.2) Sodium 133 L (137-145) mmol/L Chloride (98-107) mmol/L BUN 20 H (7-17) mg/dL Creatinine 1.21 H (0.52-1.04) mg/dL Glucose 104 H (74-99) mg/dL Total Bilirubin 1.8 H (0.2-1.3) mg/dL AST 63 H (14-36) U/L Alkaline Phosphatase 233 H (38-126) U/L Troponin I 0.095 H* (0.000-0.034) ng/mL Total Protein (6.3-8.2) g/dL Albumin 3.0 L (3.5-5.0) g/dL Urine Blood (Negative) Ur Leukocyte Esterase (Negative) Urine Bacteria (None) /hpf Hyaline Casts (0-2) /lpf 01/25/19 01/25/19 01/26/19 Range/Units 22:15 23:16 03:41 WBC (3.8-10.6) k/uL RBC (3.80-5.40) m/uL MCV (80.0-100.0) fL RDW (11.5-15.5) % Plt Count (150-450) k/uL PT 13.9 H (9.0-12.0) sec INR 1.4 H (<1.2) Sodium (137-145) mmol/L Chloride (98-107) mmol/L BUN (7-17) mg/dL Creatinine (0.52-1.04) mg/dL Glucose (74-99) mg/dL Total Bilirubin (0.2-1.3) mg/dL AST (14-36) U/L Alkaline Phosphatase (38-126) U/L Troponin I 0.087 H* (0.000-0.034) ng/mL Total Protein (6.3-8.2) g/dL Albumin (3.5-5.0) g/dL Urine Blood Trace H (Negative) Ur Leukocyte Esterase Small H (Negative) Urine Bacteria Few H (None) /hpf Hyaline Casts 8 H (0-2) /lpf 01/26/19 01/26/19 01/26/19 Range/Units 09:28 09:28 09:28 WBC 3.7 L (3.8-10.6) k/uL RBC 3.55 L (3.80-5.40) m/uL MCV 104.2 H D (80.0-100.0) fL RDW 18.3 H (11.5-15.5) % Plt Count 50 L (150-450) k/uL PT (9.0-12.0) sec INR (<1.2) Sodium 136 L (137-145) mmol/L Chloride 108 H (98-107) mmol/L BUN 19 H (7-17) mg/dL Creatinine 1.08 H (0.52-1.04) mg/dL Glucose 116 H (74-99) mg/dL Total Bilirubin 1.7 H (0.2-1.3) mg/dL AST 55 H (14-36) U/L Alkaline Phosphatase 212 H (38-126) U/L Troponin I 0.087 H* (0.000-0.034) ng/mL Total Protein 6.2 L (6.3-8.2) g/dL Albumin 2.6 L (3.5-5.0) g/dL Urine Blood (Negative) Ur Leukocyte Esterase (Negative) Urine Bacteria (None) /hpf Hyaline Casts (0-2) /lpf Diabetes panel 01/25/19 01/26/19 Range/Units 21:45 09:28 Sodium 133 L 136 L (137-145) mmol/L Potassium 4.5 4.0 (3.5-5.1) mmol/L Chloride 103 108 H (98-107) mmol/L Carbon Dioxide 24 23 (22-30) mmol/L BUN 20 H 19 H (7-17) mg/dL Creatinine 1.21 H 1.08 H (0.52-1.04) mg/dL Glucose 104 H 116 H (74-99) mg/dL Calcium 8.9 8.8 (8.4-10.2) mg/dL AST 63 H 55 H (14-36) U/L ALT 37 36 (9-52) U/L Alkaline Phosphatase 233 H 212 H (38-126) U/L Total Protein 6.8 6.2 L (6.3-8.2) g/dL Albumin 3.0 L 2.6 L (3.5-5.0) g/dL Calcium panel 01/25/19 01/26/19 Range/Units 21:45 09:28 Calcium 8.9 8.8 (8.4-10.2) mg/dL Albumin 3.0 L 2.6 L (3.5-5.0) g/dL Pituitary panel 01/25/19 01/26/19 Range/Units 21:45 09:28 Sodium 133 L 136 L (137-145) mmol/L Potassium 4.5 4.0 (3.5-5.1) mmol/L Chloride 103 108 H (98-107) mmol/L Carbon Dioxide 24 23 (22-30) mmol/L BUN 20 H 19 H (7-17) mg/dL Creatinine 1.21 H 1.08 H (0.52-1.04) mg/dL Glucose 104 H 116 H (74-99) mg/dL Calcium 8.9 8.8 (8.4-10.2) mg/dL Adrenal panel 01/25/19 01/26/19 Range/Units 21:45 09:28 Sodium 133 L 136 L (137-145) mmol/L Potassium 4.5 4.0 (3.5-5.1) mmol/L Chloride 103 108 H (98-107) mmol/L Carbon Dioxide 24 23 (22-30) mmol/L BUN 20 H 19 H (7-17) mg/dL Creatinine 1.21 H 1.08 H (0.52-1.04) mg/dL Glucose 104 H 116 H (74-99) mg/dL Calcium 8.9 8.8 (8.4-10.2) mg/dL Total Bilirubin 1.8 H 1.7 H (0.2-1.3) mg/dL AST 63 H 55 H (14-36) U/L ALT 37 36 (9-52) U/L Alkaline Phosphatase 233 H 212 H (38-126) U/L Total Protein 6.8 6.2 L (6.3-8.2) g/dL Albumin 3.0 L 2.6 L (3.5-5.0) g/dL
--- NOTE | 2019-01-26 13:12 | ECHOF ---
Referral Reason:Chest pain and cardiomyopathy MEASUREMENTS -------- HEIGHT: 175.3 cm WEIGHT: 88.5 kg BP: 101/62 RVIDd: 3.3 cm (< 3.3) IVSd: 1.5 cm (0.6 - 1.1) LVIDd: 3.8 cm (3.9 - 5.3) LVPWd: 1.4 cm (0.6 - 1.1) IVSs: 1.8 cm LVIDs: 2.6 cm LVPWs: 1.8 cm Ao Diam: 2.9 cm (2.0 - 3.7) AV Cusp: 1.0 cm (1.5 - 2.6) LA Diam: 4.1 cm (2.7 - 3.8) EPSS: 0.7 cm AV maxP.52 mmHg AV meanP.89 mmHg MV EF SLOPE: 57.84 mm/s (70 - 150) MV EXCURSION: 1.79 cm (> 18.000) FINDINGS -------- Sinus rhythm. This was a technically adequate study. Limited Study for assessment of left ventricular function. Previous complete study performed on 11-28-18 The left ventricular size is normal. There is moderate concentric left ventricular hypertrophy. O verall left ventricular systolic function is mildly impaired with, an EF between 45 - 50 %. Basal i nferior LV wall motion is hypokinetic. Basal inferoseptal LV wall motion is hypokinetic. CONCLUSIONS -------- 1. Sinus rhythm. 2. This was a technically adequate study. 3. Previous complete study performed on 11-28-18 4. The left ventricular size is normal. 5. There is moderate concentric left ventricular hypertrophy. 6. Overall left ventricular systolic function is mildly impaired with, an EF between 45 - 50 %. 7. Basal inferior LV wall motion is hypokinetic. 8. Basal inferoseptal LV wall motion is hypokinetic. DISPUTE COORDINATOR: Estevan Kent RDCS
[2019-01-26] MEDS ORDERED: LACTULOSE 20 GM/30 ML CUP PO ONE (13:45)
--- NOTE | 2019-01-26 14:36 | P.HPIM ---
History of Present Illness H&P Date: 01/26/19 Chief Complaint: Nausea vomiting and chest heaviness This is a 73-year-old female, patient of Dr. Kurtz. She has a known past medical history of hepatocellular carcinoma status post chemo embolization, non- alcoholic liver cirrhosis, diverticulitis with ileostomy placement, chronic abdominal pain due to reoccurring ascites, chronic kidney disease, and in December recent hospitalization with MRSA in urine. Patient completed antibiotic with IV vancomycin for 5 days. Patient presents to the hospital complaining of nausea and vomiting for about 5 days. Yesterday after vomiting she started to have chest heaviness and became concerned came into the ER for further evaluation and treatment. Cardiology and surgical service were consulted. She did have minimally elevated troponin 0.087 0.095. Per cardiology acute coronary syndrome ruled out. They did order echocardiogram. Patient does report stool through her ileostomy. Denies any fever or chills or sweats. Denies any burning with urination. Creatinine on admission was 1.21 and is now down to 1.08. Patient denies any blood in the emesis. She is complaining of some left sided abdominal pain. Review of Systems Please refer to HPI otherwise unremarkable Past Medical History Past Medical History: Cancer, Diabetes Mellitus, Hypertension, Liver Disease, Myocardial Infarction (NM) Additional Past Medical History / Comment(s): liver ca- had chemo dec 2018, past ascities-paracentesis, ulcer(sx),diverticulitis, Last Myocardial Infarction Date:: unk History of Any Multi-Drug Resistant Organisms: MRSA Date of last positivie culture/infection: 12/30/18 MDRO Source:: MRSA URINE Past Surgical History: Appendectomy, Bowel Resection, Section, Cholecystectomy, Hysterectomy, Tonsillectomy Additional Past Surgical History / Comment(s): rt rotator cuff repair,carpal tunnel release .liver bx,ilieostomy ,paracentesis, chemo, embolizations of liver tumors Past Anesthesia/Blood Transfusion Reactions: No Reported Reaction Past Psychological History: Anxiety, Depression Additional Psychological History / Comment(s): Reformed smoker. . Retired. No experience. No animal exposures Smoking Status: Never smoker Past Alcohol Use History: None Reported Additional Past Alcohol Use History / Comment(s): started smoking 1962 and quit 1965 Past Drug Use History: None Reported - Past Family History Mother History Unknown: Yes Family Medical History: Congestive Heart Failure (CHF) Medications and Allergies Home Medications Medication Instructions Recorded Confirmed Type Dicyclomine [Bentyl] 10 mg PO DAILY 10/23/18 01/25/19 History Omeprazole [PriLOSEC] 20 mg PO BID 10/23/18 01/25/19 History Sucralfate [Carafate] 1 gm PO QID 10/23/18 01/25/19 History Insulin NPH Human Isophane 18 unit SQ BID 10/24/18 01/25/19 History [NovoLIN N] Insulin Regular, Human [NovoLIN R] 10 unit SQ AC-TID 10/24/18 01/25/19 History Ferrous Sulfate [Iron (65 MG 325 mg PO BID #60 tab 12/15/18 01/25/19 Rx Elemental)] Spironolactone [Aldactone] 50 mg PO BID 30 Days #60 tab 12/21/18 01/25/19 Rx buPROPion SR [Wellbutrin SR] 150 mg PO DAILY #30 tablet.er 12/21/18 01/25/19 Rx Magnesium Oxide [William] 500 mg PO DAILY 12/30/18 01/25/19 History Torsemide [Demadex] 20 mg PO DAILY 30 Days #30 tab 01/09/19 01/25/19 Rx Cholecalciferol [Vitamin D3] 4,000 unit PO DAILY 01/16/19 01/25/19 History clonazePAM [KlonoPIN] 0.5 mg PO DAILY PRN 01/25/19 01/25/19 History Allergies Allergy/AdvReac Type Severity Reaction Status Date / Time amlodipine Allergy Rash/Hives Verified 01/25/19 21:03 oxycodone Allergy Rash/Hives Verified 01/25/19 21:03 Penicillins Allergy Rash/Hives Verified 01/25/19 21:03 hydromorphone [From Dilaudid] AdvReac Mild tactile Verified 01/25/19 21:03 disturbance GREG Inhibitors AdvReac Cough Verified 01/25/19 21:03 sodium dodecyclbenzene Allergy Rash/Hives Uncoded 01/25/19 20:31 sulfonate Physical Exam Vitals: Vital Signs Temp Pulse Pulse Resp BP BP Pulse Ox 01/26/19 12:20 97.8 F 56 L 18 92/49 98 01/26/19 08:00 98.4 F 54 L 18 101/62 97 01/26/19 05:14 59 L 18 85/48 97 01/26/19 04:21 54 L 01/26/19 02:03 98.3 F 54 L 18 91/43 97 01/26/19 00:52 98.8 F 55 L 16 128/69 98 01/25/19 21:40 53 L 16 123/73 97 01/25/19 20:25 98.7 F 55 L 16 107/52 98 Intake and Output 01/25/19 01/26/19 01/26/19 22:59 06:59 14:59 Intake Total 840 Output Total 0 0 Balance 0 840 Intake: Oral 840 Output: Urine 0 0 Other: # Voids 1 1 Weight 86.183 kg 88.6 kg Head normocephalic Neck supple Lungs clear to auscultation bilaterally no wheezing or crackles Heart regular rate and rhythm S1-S2, no rub or gallop Abdomen is soft nontender nondistended positive bowel sounds no hepatosplenomegaly. Stool and ileostomy bag Extremities no edema Neuro alert and orientated to 3 Results CBC & Chem 7: 01/26/19 09:28 01/26/19 09:28 Labs: Abnormal Lab Results - Last 24 Hours (Table) 01/25/19 01/25/19 01/25/19 Range/Units 21:45 21:45 21:45 WBC (3.8-10.6) k/uL RBC (3.80-5.40) m/uL MCV (80.0-100.0) fL RDW 18.1 H (11.5-15.5) % Plt Count 45 L (150-450) k/uL PT (9.0-12.0) sec INR (<1.2) Sodium 133 L (137-145) mmol/L Chloride (98-107) mmol/L BUN 20 H (7-17) mg/dL Creatinine 1.21 H (0.52-1.04) mg/dL Glucose 104 H (74-99) mg/dL Total Bilirubin 1.8 H (0.2-1.3) mg/dL AST 63 H (14-36) U/L Alkaline Phosphatase 233 H (38-126) U/L Troponin I 0.095 H* (0.000-0.034) ng/mL Total Protein (6.3-8.2) g/dL Albumin 3.0 L (3.5-5.0) g/dL Urine Blood (Negative) Ur Leukocyte Esterase (Negative) Urine Bacteria (None) /hpf Hyaline Casts (0-2) /lpf 01/25/19 01/25/19 01/26/19 Range/Units 22:15 23:16 03:41 WBC (3.8-10.6) k/uL RBC (3.80-5.40) m/uL MCV (80.0-100.0) fL RDW (11.5-15.5) % Plt Count (150-450) k/uL PT 13.9 H (9.0-12.0) sec INR 1.4 H (<1.2) Sodium (137-145) mmol/L Chloride (98-107) mmol/L BUN (7-17) mg/dL Creatinine (0.52-1.04) mg/dL Glucose (74-99) mg/dL Total Bilirubin (0.2-1.3) mg/dL AST (14-36) U/L Alkaline Phosphatase (38-126) U/L Troponin I 0.087 H* (0.000-0.034) ng/mL Total Protein (6.3-8.2) g/dL Albumin (3.5-5.0) g/dL Urine Blood Trace H (Negative) Ur Leukocyte Esterase Small H (Negative) Urine Bacteria Few H (None) /hpf Hyaline Casts 8 H (0-2) /lpf 01/26/19 01/26/19 01/26/19 Range/Units 09:28 09:28 09:28 WBC 3.7 L (3.8-10.6) k/uL RBC 3.55 L (3.80-5.40) m/uL MCV 104.2 H D (80.0-100.0) fL RDW 18.3 H (11.5-15.5) % Plt Count 50 L (150-450) k/uL PT (9.0-12.0) sec INR (<1.2) Sodium 136 L (137-145) mmol/L Chloride 108 H (98-107) mmol/L BUN 19 H (7-17) mg/dL Creatinine 1.08 H (0.52-1.04) mg/dL Glucose 116 H (74-99) mg/dL Total Bilirubin 1.7 H (0.2-1.3) mg/dL AST 55 H (14-36) U/L Alkaline Phosphatase 212 H (38-126) U/L Troponin I 0.087 H* (0.000-0.034) ng/mL Total Protein 6.2 L (6.3-8.2) g/dL Albumin 2.6 L (3.5-5.0) g/dL Urine Blood (Negative) Ur Leukocyte Esterase (Negative) Urine Bacteria (None) /hpf Hyaline Casts (0-2) /lpf Thrombosis Risk Factor Assmnt - Choose All That Apply Any of the Below Risk Factors Present?: No Other Risk Factors: Yes Each Risk Factor Represents 2 Points: Age 61-74 years Thrombosis Risk Factor Assessment Total Risk Factor Score: 2 Thrombosis Risk Factor Assessment Level: Low Risk Assessment and Plan Assessment: 1. Nausea and vomiting with chest heaviness. Troponins mildly elevated at 0.087 and 0.095. EKG showing sinus bradycardia with heart rate of 54 and right bundle branch block. Patient seen evaluated by cardiology. [place] ruled out by cardiology. They have ordered an echocardiogram. Troponins may be elevated due to dehydration. Continue with IV fluids. Patient also seen by surgical service and advance diet to a full liquid diet. Vomiting has resolved. 2. Acute kidney injury: Secondary to volume depletion due to vomiting. Showing improvement with IV fluids. creatinine has decreased from 1.21 down to 1.08. We'll continue gentle hydration fluids at normal saline at 50 mL an hour. Repeat labs in a.m. 3. History of hepatocellular carcinoma status post chemoembolization 2012, 2015, and 2017 4. Chronic abdominal pain due to reoccurring abdominal ascites. Patient is continue with her diuretics and lactulose. Patient is scheduled to follow up with GI service Wednesday next week. Patient has yet to make it to a follow-up appointment outpatient with GI service 5. Recent hospitalization with MRSA and urine completed IV vancomycin. Repeat urinalysis showing trace leukocytes. Patient denies any urinary symptoms. Urine is being sent for culture 6. History of diverticulitis with ileostomy placement 7. History of nonalcoholic liver cirrhosis 8. History of pancytopenia due to known liver cancer secondary to chronic liver cirrhosis 9. History of insulin-dependent diabetes mellitus A1c 5.5 on January 04. At this time we'll continue with Novolog sliding scale coverage 10. Iron deficiency anemia continue iron supplement 11. Depression 12. Chronic elevated LFTs due to chronic liver malignancy 13. Hypotension: We'll place parameters to hold patient's Demadex and Aldactone for supple pressure less than 90 Consult physical therapy Anticipate discharge home possibly tomorrow GI prophylaxis Protonix and DVT prophylaxis SCDs. No anticoagulation for DVT prophylaxis due to patient's thrombocytopenia.
[2019-01-26 16:25] LABS: Glucose,Whole Blood 212 mg/dL (75-99)
[2019-01-26] MEDS: SODIUM CHLORIDE 0.9% 1,000 ML IV SCH (18:25)
[2019-01-26] MEDS: FERROUS SULFATE 325 MG TAB PO SCH (20:02)
[2019-01-26] MEDS: PANTOPRAZOLE 40 MG TABLET PO SCH (20:02)
[2019-01-26 20:05] LABS: Glucose,Whole Blood 277 mg/dL (75-99)
[2019-01-27 06:17] LABS: Glucose,Whole Blood 103 mg/dL (75-99)
[2019-01-27] MEDS: INSULIN ASPART (NovoLOG) 100 UNIT/ML VIAL SQ SCH ×4 (06:30→20:39)
[2019-01-27 07:18] LABS: Anisocytosis Slight; Basophils % (A) 0 %; Eosinophils # (A) 0.2 k/uL (0-0.7); Eosinophils % (A) 5 %; HCT 37.8 % (34.0-46.0); HGB 11.7 gm/dL (11.4-16.0); Lymphocytes % (A) 26 %; MCH 31.3 pg (25.0-35.0); MCHC 31.1 g/dL (31.0-37.0); MCV 100.7 fL (80.0-100.0); Macrocytosis Slight; Mean Platelet Volume 9.2; Monocytes # (A) 0.2 k/uL (0-1.0); Monocytes % (A) 7 %; Neutrophils # (A) 2.2 k/uL (1.3-7.7); Neutrophils % (A) 59 %; RBC 3.75 m/uL (3.80-5.40); RDW 17.8 % (11.5-15.5); WBC 3.7 k/uL (3.8-10.6)
[2019-01-27 07:26] LABS: Platelet Count 57 k/uL (150-450)
[2019-01-27 07:33] LABS: Albumin 2.7 g/dL (3.5-5.0); Calcium 8.6 mg/dL (8.4-10.2); Potassium 3.9 mmol/L (3.5-5.1); Total Bilirubin 2.1 mg/dL (0.2-1.3); Total Protein 6.2 g/dL (6.3-8.2)
[2019-01-27] MEDS: SPIRONOLACTONE 25 MG TAB PO SCH ×2 (08:55→20:38)
[2019-01-27] MEDS: MAGNESIUM OXIDE 400 MG TAB PO SCH (08:55)
[2019-01-27] MEDS: DICYCLOMINE 10 MG CAP PO SCH (08:56)
[2019-01-27] MEDS: PANTOPRAZOLE 40 MG TABLET PO SCH ×2 (08:56→20:38)
[2019-01-27] MEDS: TORSEMIDE 20 MG TAB PO SCH (08:56)
[2019-01-27] MEDS: FERROUS SULFATE 325 MG TAB PO SCH ×2 (08:56→20:38)
[2019-01-27] MEDS: LACTULOSE 20 GM/30 ML CUP PO SCH (08:56)
[2019-01-27] MEDS: ASPIRIN 325 MG TAB PO SCH (08:56)
[2019-01-27] MEDS: CHOLECALCIFEROL 1,000 UNIT TAB PO SCH (08:56)
[2019-01-27] MEDS: buPROPion SR 150 MG TABLET.ER PO SCH (08:56)
[2019-01-27] MEDS: SUCRALFATE 1 GM TAB PO SCH ×4 (08:56→20:38)
[2019-01-27] MEDS ORDERED: LACTULOSE 20 GM/30 ML CUP PO SCH (09:00)
[2019-01-27] MEDS ORDERED: MORPHINE SULFATE IR 15 MG TABLET PO PRN (09:19)
--- NOTE | 2019-01-27 10:27 | P.PN ---
Subjective Progress Note Date: 01/27/19 CHIEF COMPLAINT: Nausea and vomiting HISTORY OF PRESENT ILLNESS: Patient examined at the bedside. She reports very mild nausea. No vomiting. Tolerating diet. Ileostomy with gas and stool noted. PHYSICAL EXAM: VITAL SIGNS: Currently stable. GENERAL: Well-developed in no acute distress. HEENT: No sclera icterus. Extraocular movements grossly intact. Moist buccal mucosa. Head is atraumatic, normocephalic. Hears conversational speech. No nasal drainage. NECK: Supple without lymphadenopathy. CHEST: Non-labored respirations and equal bilateral excursions. CARDIOVASCULAR: Regular rate with regular rhythm. Palpable 2+ radial pulses. ABDOMEN: Soft. Nondistended. Nontender. Ileostomy noted with stool. MUSCULOSKELETAL: No clubbing, cyanosis or edema. NEUROLOGIC: No focal or lateralizing signs. Cranial nerves II through XII grossly intact. PSYCH: Appropriate affect. Alert and oriented to person, place and time. SKIN: Well perfused. Good skin turgor. ASSESSMENT: 1. Nausea and vomiting PLAN: Continue full liquid diet. Advance as tolerated. Stable from a surgical perspec tive. Nurse practitioner note has been reviewed by physician. Signing provider agrees with the documented findings, assessment, and plan of care. Objective - Vital Signs Vital signs: Vital Signs Temp 98.7 F 01/27/19 00:19 Pulse 61 01/27/19 04:48 Resp 18 01/27/19 04:48 BP 108/61 01/27/19 04:48 Pulse Ox 97 01/27/19 04:48 Intake & Output 01/26/19 01/27/19 01/27/19 18:59 06:59 18:59 Intake Total 1080 240 240 Output Total 0 Balance 1080 240 240 Weight 86.4 kg Intake: Oral 1080 240 Blood Product 240 Output: Urine 0 Other: # Voids 1 - Labs CBC & Chem 7: 01/27/19 06:28 01/27/19 06:28 Labs: Abnormal Lab Results - Last 24 Hours (Table) 01/26/19 01/26/19 01/26/19 Range/Units 09:28 09:28 09:28 WBC 3.7 L (3.8-10.6) k/uL RBC 3.55 L (3.80-5.40) m/uL MCV 104.2 H D (80.0-100.0) fL RDW 18.3 H (11.5-15.5) % Plt Count 50 L (150-450) k/uL Sodium 136 L (137-145) mmol/L Chloride 108 H (98-107) mmol/L BUN 19 H (7-17) mg/dL Creatinine 1.08 H (0.52-1.04) mg/dL Glucose 116 H (74-99) mg/dL POC Glucose (mg/dL) (75-99) mg/dL Total Bilirubin 1.7 H (0.2-1.3) mg/dL AST 55 H (14-36) U/L Alkaline Phosphatase 212 H (38-126) U/L Troponin I 0.087 H* (0.000-0.034) ng/mL Total Protein 6.2 L (6.3-8.2) g/dL Albumin 2.6 L (3.5-5.0) g/dL 01/26/19 01/26/19 01/27/19 Range/Units 16:24 20:01 06:14 WBC (3.8-10.6) k/uL RBC (3.80-5.40) m/uL MCV (80.0-100.0) fL RDW (11.5-15.5) % Plt Count (150-450) k/uL Sodium (137-145) mmol/L Chloride (98-107) mmol/L BUN (7-17) mg/dL Creatinine (0.52-1.04) mg/dL Glucose (74-99) mg/dL POC Glucose (mg/dL) 212 H 277 H 103 H (75-99) mg/dL Total Bilirubin (0.2-1.3) mg/dL AST (14-36) U/L Alkaline Phosphatase (38-126) U/L Troponin I (0.000-0.034) ng/mL Total Protein (6.3-8.2) g/dL Albumin (3.5-5.0) g/dL 01/27/19 01/27/19 Range/Units 06:28 06:28 WBC 3.7 L (3.8-10.6) k/uL RBC 3.75 L (3.80-5.40) m/uL MCV 100.7 H (80.0-100.0) fL RDW 17.8 H (11.5-15.5) % Plt Count 57 L (150-450) k/uL Sodium (137-145) mmol/L Chloride 108 H (98-107) mmol/L BUN (7-17) mg/dL Creatinine (0.52-1.04) mg/dL Glucose 109 H (74-99) mg/dL POC Glucose (mg/dL) (75-99) mg/dL Total Bilirubin 2.1 H (0.2-1.3) mg/dL AST 59 H (14-36) U/L Alkaline Phosphatase 212 H (38-126) U/L Troponin I (0.000-0.034) ng/mL Total Protein 6.2 L (6.3-8.2) g/dL Albumin 2.7 L (3.5-5.0) g/dL Microbiology - Last 24 Hours (Table) 01/26/19 23:00 Urine Culture - Preliminary Urine,Voided
[2019-01-27] MEDS: SODIUM CHLORIDE 0.9% 1,000 ML IV SCH (11:37)
[2019-01-27 12:13] LABS: Glucose,Whole Blood 238 mg/dL (75-99)
[2019-01-27] MEDS ORDERED: ONDANSETRON 4 MG/2 ML VIAL IVP PRN (13:01)
--- NOTE | 2019-01-27 13:03 | P.PN ---
Subjective Progress Note Date: 01/27/19 This is a 73-year-old female, patient of Dr. Kurtz. She has a known past medical history of hepatocellular carcinoma status post chemo embolization, non- alcoholic liver cirrhosis, diverticulitis with ileostomy placement, chronic abdominal pain due to reoccurring ascites, chronic kidney disease, and in F ebruary recent hospitalization with MRSA in urine. Patient completed antibiotic with IV vancomycin for 5 days. Patient presents to the hospital complaining of nausea and vomiting for about 5 days. Yesterday after vomiting she started to have chest heaviness and became concerned came into the ER for further evaluation and treatment. Cardiology and surgical service were consulted. She did have minimally elevated troponin 0.087 0.095. Per cardiology acute coronary syndrome ruled out. They did order echocardiogram. Patient does report stool through her ileostomy. Denies any fever or chills or sweats. Denies any burning with urination. Creatinine on admission was 1.21 and is now down to 1.08. Patient denies any blood in the emesis. She is complaining of some left sided abdominal pain. 01/27/2019 patient still reporting abdominal pain and some nausea no further episodes of vomiting. Diet has been advanced as tolerated. And her oral morphine has been restarted. Echo had shown EF of 45-50% wall motion abnormality noted which has not changed from prior echo. Patient denies any chest pain or shortness of breath. Patient is still having stool through her ileostomy. Denies any burning with urination or any urinary symptoms. Objective - Vital Signs Vital signs: Vital Signs Temp 98.8 F 01/27/19 11:38 Pulse 64 01/27/19 11:38 Resp 18 01/27/19 11:38 BP 108/54 01/27/19 11:38 Pulse Ox 98 01/27/19 11:38 Intake & Output 01/26/19 01/27/19 01/27/19 18:59 06:59 18:59 Intake Total 1080 240 240 Output Total 0 Balance 1080 240 240 Weight 86.4 kg Intake: Oral 1080 240 Blood Product 240 Output: Urine 0 Other: # Voids 1 - Exam Head normocephalic Neck supple Lungs clear to auscultation bilaterally no wheezing or crackles Heart regular rate and rhythm S1-S2, no rub or gallop Abdomen is soft nontender nondistended positive bowel sounds no hepatosplenomegaly Extremities no edema Neuro alert and orientated to 3 - Labs CBC & Chem 7: 01/27/19 06:28 01/27/19 06:28 Labs: Abnormal Lab Results - Last 24 Hours (Table) 01/26/19 01/26/19 01/27/19 Range/Units 16:24 20:01 06:14 WBC (3.8-10.6) k/uL RBC (3.80-5.40) m/uL MCV (80.0-100.0) fL RDW (11.5-15.5) % Plt Count (150-450) k/uL Chloride (98-107) mmol/L Glucose (74-99) mg/dL POC Glucose (mg/dL) 212 H 277 H 103 H (75-99) mg/dL Total Bilirubin (0.2-1.3) mg/dL AST (14-36) U/L Alkaline Phosphatase (38-126) U/L Total Protein (6.3-8.2) g/dL Albumin (3.5-5.0) g/dL 01/27/19 01/27/19 01/27/19 Range/Units 06:28 06:28 11:27 WBC 3.7 L (3.8-10.6) k/uL RBC 3.75 L (3.80-5.40) m/uL MCV 100.7 H (80.0-100.0) fL RDW 17.8 H (11.5-15.5) % Plt Count 57 L (150-450) k/uL Chloride 108 H (98-107) mmol/L Glucose 109 H (74-99) mg/dL POC Glucose (mg/dL) 238 H (75-99) mg/dL Total Bilirubin 2.1 H (0.2-1.3) mg/dL AST 59 H (14-36) U/L Alkaline Phosphatase 212 H (38-126) U/L Total Protein 6.2 L (6.3-8.2) g/dL Albumin 2.7 L (3.5-5.0) g/dL Microbiology - Last 24 Hours (Table) 01/26/19 23:00 Urine Culture - Preliminary Urine,Voided Assessment and Plan Assessment: 1. Nausea and vomiting with chest heaviness. Nausea and vomiting likely secondary to viral gastroenteritis. Troponins mildly elevated at 0.087 and 0.095. EKG showing sinus bradycardia with heart rate of 54 and right bundle branch block. Patient seen evaluated by cardiology. [place] ruled out by cardiology. Troponins may be elevated due to dehydration. Advance diet as tolerated. Resume home pain medications. Continue to monitor. Patient still complaining of some abdominal discomfort and nausea 2. Acute kidney injury: Secondary to volume depletion due to vomiting. Showing improvement with IV fluids. Creatinine has normalized. We'll discontinue IV fluids. 3. History of hepatocellular carcinoma status post chemoembolization 2012, 2015, and 2017 4. Chronic abdominal pain due to reoccurring abdominal ascites. Patient is continue with her diuretics and lactulose. Patient is scheduled to follow up with GI service Wednesday next week. Patient has yet to make it to a follow-up appointment outpatient with GI service 5. Recent hospitalization with MRSA and urine completed IV vancomycin. Repeat urinalysis showing trace leukocytes. Patient denies any urinary symptoms. Urine is being sent for culture 6. History of diverticulitis with ileostomy placement 7. History of nonalcoholic liver cirrhosis 8. History of pancytopenia due to known liver cancer secondary to chronic liver cirrhosis 9. History of insulin-dependent diabetes mellitus A1c 5.5 on January 04. At this time we'll continue with Novolog sliding scale coverage 10. Iron deficiency anemia continue iron supplement 11. Depression 12. Chronic elevated LFTs due to chronic liver malignancy 13. Hypotension: We'll place parameters to hold patient's torsemide and Aldactone for SBP<90 Consult physical therapy Anticipate discharge home possibly tomorrow GI prophylaxis Protonix and DVT prophylaxis SCDs. No anticoagulation for DVT prophylaxis due to patient's thrombocytopenia. I performed an examination of the patient and discussed their management with the physician Wood Panel Inspector. I have reviewed the Physician Wood Panel Inspector's notes and agree with the documented findings and plan of care
[2019-01-27 17:12] LABS: Glucose,Whole Blood 229 mg/dL (75-99)
[2019-01-27] MEDS: INSULIN REGULAR 100 UNIT/ML VIAL SQ SCH (17:47)
[2019-01-27 20:24] LABS: Glucose,Whole Blood 256 mg/dL (75-99)
[2019-01-27] MEDS: INSULIN NPH 300 UNIT/3 ML VIAL SQ SCH (21:13)
[2019-01-28 07:11] LABS: Glucose,Whole Blood 123 mg/dL (75-99)
[2019-01-28] MEDS: INSULIN ASPART (NovoLOG) 100 UNIT/ML VIAL SQ SCH ×2 (07:14→12:16)
[2019-01-28] MEDS: PANTOPRAZOLE 40 MG TABLET PO SCH (07:52)
[2019-01-28] MEDS: CHOLECALCIFEROL 1,000 UNIT TAB PO SCH (07:52)
[2019-01-28] MEDS: INSULIN REGULAR 100 UNIT/ML VIAL SQ SCH ×2 (07:52→12:16)
[2019-01-28] MEDS: SPIRONOLACTONE 25 MG TAB PO SCH (07:53)
[2019-01-28] MEDS: TORSEMIDE 20 MG TAB PO SCH (07:53)
[2019-01-28] MEDS: SUCRALFATE 1 GM TAB PO SCH ×2 (07:53→12:16)
[2019-01-28] MEDS: MAGNESIUM OXIDE 400 MG TAB PO SCH (07:54)
[2019-01-28] MEDS: FERROUS SULFATE 325 MG TAB PO SCH (07:54)
[2019-01-28] MEDS: buPROPion SR 150 MG TABLET.ER PO SCH (07:54)
[2019-01-28] MEDS: LACTULOSE 20 GM/30 ML CUP PO SCH ×2 (07:54→08:02)
[2019-01-28] MEDS: ASPIRIN 325 MG TAB PO SCH (07:54)
[2019-01-28] MEDS: DICYCLOMINE 10 MG CAP PO SCH (07:54)
[2019-01-28] MEDS: INSULIN NPH 300 UNIT/3 ML VIAL SQ SCH (07:59)
[2019-01-28 08:09] VITALS: BP 129/75; PULSE 74; RESP 14; TEMP 99.3
[2019-01-28 08:24] LABS: Anisocytosis Slight; Basophils % (A) 0 %; Eosinophils # (A) 0.2 k/uL (0-0.7); Eosinophils % (A) 5 %; HCT 39.5 % (34.0-46.0); HGB 12.7 gm/dL (11.4-16.0); Lymphocytes # (A) 1.2 k/uL (1.0-4.8); Lymphocytes % (A) 27 %; MCH 32.8 pg (25.0-35.0); MCV 102.3 fL (80.0-100.0); Macrocytosis Moderate; Mean Platelet Volume 8.3; Monocytes # (A) 0.3 k/uL (0-1.0); Monocytes % (A) 7 %; Neutrophils # (A) 2.5 k/uL (1.3-7.7); Neutrophils % (A) 58 %; RBC 3.86 m/uL (3.80-5.40); RDW 17.9 % (11.5-15.5); WBC 4.3 k/uL (3.8-10.6)
[2019-01-28 08:27] LABS: Platelet Count 59 k/uL (150-450)
[2019-01-28 08:35] LABS: Albumin 2.9 g/dL (3.5-5.0); Calcium 8.9 mg/dL (8.4-10.2); Potassium 4.4 mmol/L (3.5-5.1); Total Bilirubin 1.7 mg/dL (0.2-1.3); Total Protein 6.7 g/dL (6.3-8.2)
--- NOTE | 2019-01-28 10:02 | P.PN ---
Progress Note - Text Progress Note Date: 01/28/19 Patient's a well. She is tolerated diet. Her ileostomy dysfunction. On exam her vital signs are stable. Her abdomen soft. Patiently discharged home today.
--- NOTE | 2019-01-28 11:55 | P.DS ---
Providers Date of admission: 01/26/19 00:30 Expected date of discharge: 01/28/19 Attending physician: Artemio Lea Consults: 01/26/19 00:33 Consult Physician Urgent Consulting Provider: [facility] Consult Reason/Comments: chest pain, elevated trop Do you want consulting provider notified?: Yes, Notify in am 01/26/19 08:01 Consult Physician Routine Consulting Provider: [place] Zhang Consult Reason/Comments: emesis/abd pain Do you want consulting provider notified?: Yes Primary care physician: Gilma Martinez [facility] Course: Diagnosis on discharge: 1. Nausea and vomiting with chest heaviness. Nausea and vomiting likely secondary to viral gastroenteritis. Troponins mildly elevated at 0.087 and 0.095. EKG showing sinus bradycardia with heart rate of 54 and right bundle branch block. Patient seen evaluated by cardiology. WA ruled out by cardiology. Troponins may be elevated due to dehydration. Advance diet as tolerated. Resume home pain medications. Continue to monitor. Patient still complaining of some abdominal discomfort and nausea 2. Acute kidney injury: Secondary to volume depletion due to vomiting. Showing improvement with IV fluids. Creatinine has normalized. We'll discontinue IV fluids. 3. History of hepatocellular carcinoma status post chemoembolization 2012, 2015, and 2017 4. Chronic abdominal pain due to reoccurring abdominal ascites. Patient is continue with her diuretics and lactulose. Patient is scheduled to follow up with GI service Wednesday next week. Patient has yet to make it to a follow-up appointment outpatient with GI service 5. Recent hospitalization with MRSA and urine completed IV vancomycin. Repeat urinalysis showing trace leukocytes. Patient denies any urinary symptoms. Urine is being sent for culture 6. History of diverticulitis with ileostomy placement 7. History of nonalcoholic liver cirrhosis 8. History of pancytopenia due to known liver cancer secondary to chronic liver cirrhosis 9. History of insulin-dependent diabetes mellitus A1c 5.5 on January 04. At this time we'll continue with Novolog sliding scale coverage 10. Iron deficiency anemia continue iron supplement 11. Depression 12. Chronic elevated LFTs due to chronic liver malignancy 13. Hypotension: We'll place parameters to hold patient's torsemide and Aldactone for SBP<90 Hospital course: This is a 73-year-old female, patient of Dr. Kurtz. She has a known past medical history of hepatocellular carcinoma status post chemo embolization, non- alcoholic liver cirrhosis, diverticulitis with ileostomy placement, chronic abdominal pain due to reoccurring ascites, chronic kidney disease, and in December recent hospitalization with MRSA in urine. Patient completed antibiotic with IV vancomycin for 5 days. Patient presents to the hospital complaining of nausea and vomiting for about 5 days. Yesterday after vomiting she started to have chest heaviness and became concerned came into the ER for further evaluation and treatment. Cardiology and surgical service were consulted. She did have minimally elevated troponin 0.087 0.095. Per cardiology acute coronary syndrome ruled out. They did order echocardiogram. Patient does report stool through her ileostomy. Denies any fever or chills or sweats. Denies any burning with urination. Creatinine on admission was 1.21 and is now down to 1.08. Patient denies any blood in the emesis. She is complaining of some left sided abdominal pain. 01/27/2019 patient still reporting abdominal pain and some nausea no further episodes of vomiting. Diet has been advanced as tolerated. And her oral morphine has been restarted. Echo had shown EF of 45-50% wall motion abnormality noted which has not changed from prior echo. Patient denies any chest pain or shortness of breath. Patient is still having stool through her ileostomy. Denies any burning with urination or any urinary symptoms. On 01/28/2019 patient was seen and examined on the medical floor she is alert and oriented 3 in no apparent distress she still has some abdominal discomfort otherwise no complaints, input from consultants reviewed no further plan for any intervention patient has morphine at home for pain which is most likely related to history of liver cancer patient will be discharged home today she will follow-up with her primary care physician within one week for further evaluation and treatment Patient Condition at Discharge: Stable Plan - Discharge Summary New Discharge Prescriptions: New Lactulose [Cephulac] 20 gm PO DAILY ml Aspirin EC [Ecotrin Low Dose] 81 mg PO DAILY 30 Days #30 tablet. Continue Sucralfate [Carafate] 1 gm PO QID Omeprazole [PriLOSEC] 20 mg PO BID Dicyclomine [Bentyl] 10 mg PO DAILY Insulin Regular, Human [NovoLIN R] 10 unit SQ AC-TID Insulin NPH Human Isophane [NovoLIN N] 18 unit SQ BID buPROPion SR [Wellbutrin SR] 150 mg PO DAILY #30 tablet.er Spironolactone [Aldactone] 50 mg PO BID 30 Days #60 tab Magnesium Oxide [William] 500 mg PO DAILY Torsemide [Demadex] 20 mg PO DAILY 30 Days #30 tab clonazePAM [KlonoPIN] 0.5 mg PO DAILY PRN PRN Reason: Anxiety Discontinued Ferrous Sulfate [Iron (65 MG Elemental)] 325 mg PO BID #60 tab No Action Cholecalciferol [Vitamin D3] 4,000 unit PO DAILY Discharge Medication List Dicyclomine [Bentyl] 10 mg PO DAILY 10/23/18 [History] Omeprazole [PriLOSEC] 20 mg PO BID 10/23/18 [History] Sucralfate [Carafate] 1 gm PO QID 10/23/18 [History] Insulin NPH Human Isophane [NovoLIN N] 18 unit SQ BID 10/24/18 [History] Insulin Regular, Human [NovoLIN R] 10 unit SQ AC-TID 10/24/18 [History] Spironolactone [Aldactone] 50 mg PO BID 30 Days #60 tab 12/21/18 [Rx] buPROPion SR [Wellbutrin SR] 150 mg PO DAILY #30 tablet.er 12/21/18 [Rx] Magnesium Oxide [William] 500 mg PO DAILY 12/30/18 [History] Torsemide [Demadex] 20 mg PO DAILY 30 Days #30 tab 01/09/19 [Rx] Cholecalciferol [Vitamin D3] 4,000 unit PO DAILY 01/16/19 [History] clonazePAM [KlonoPIN] 0.5 mg PO DAILY PRN 01/25/19 [History] Aspirin EC [Ecotrin Low Dose] 81 mg PO DAILY 30 Days #30 tablet. 01/28/19 [Rx] Lactulose [Cephulac] 20 gm PO DAILY ml 01/28/19 [Rx] Follow up Appointment(s)/Referral(s): [facility], [NON-STAFF] - Gilma Martinez MD [Primary Care Provider] - 02/02/19 11:20 am () Patient Instructions/Handouts: Chest Pain (DC), Dehydration (DC), Acute Kidney Injury (DC) Activity/Diet/Wound Care/Special Instructions: Continue home dose morphine as prior to hospitaliztion
[2019-01-28 11:58] LABS: Glucose,Whole Blood 226 mg/dL (75-99)
== END 2019-01-28 13:58 | disposition home health service (06) | DRG 392 ==
LOC: EC 20:19 → 3SCARD 01-26 00:30 → 4SSUR 01-27 18:02
PROVIDERS: ADMIT Internal Medicine; ATTEND Internal Medicine
DX: A08.4 Viral intestinal infection, unspecified (principal); N17.9 Acute kidney failure, unspecified; R18.8 Other ascites; I42.9 Cardiomyopathy, unspecified; I95.9 Hypotension, unspecified; D69.6 Thrombocytopenia, unspecified; E11.22 Type 2 diabetes mellitus with diabetic chronic kidney disease; E86.0 Dehydration; K74.60 Unspecified cirrhosis of liver; I45.10 Unspecified right bundle-branch block; I12.9 Hypertensive chronic kidney disease with stage 1 through stage 4 chronic kidney disease, or unspecified chronic kidney disease; N18.9 Chronic kidney disease, unspecified; G89.29 Other chronic pain; R77.8 Other specified abnormalities of plasma proteins; D50.9 Iron deficiency anemia, unspecified; F32.9 Major depressive disorder, single episode, unspecified; F41.9 Anxiety disorder, unspecified; I25.2 Old myocardial infarction; Z93.2 Ileostomy status; Z79.4 Long term (current) use of insulin; Z79.899 Other long term (current) drug therapy; Z87.891 Personal history of nicotine dependence; Z86.14 Personal history of Methicillin resistant Staphylococcus aureus infection; Z92.21 Personal history of antineoplastic chemotherapy; Z90.49 Acquired absence of other specified parts of digestive tract; Z90.710 Acquired absence of both cervix and uterus; Z98.891 History of uterine scar from previous surgery; Z88.5 Allergy status to narcotic agent; Z88.0 Allergy status to penicillin; Z88.8 Allergy status to other drugs, medicaments and biological substances; Z82.49 Family history of ischemic heart disease and other diseases of the circulatory system; Z85.05 Personal history of malignant neoplasm of liver
CPT/HCPCS: 36415; 71046; 74018; 80053; 80061; 81001; 82150; 83690; 84484; 85025; 85610; 85730; 87086; 93005; 93308; 96361; 96374; 99285

== ENCOUNTER 2019-02-20 04:16 | Inpatient (IN) | payer MEDICARE ==
[2019-02-20 04:35] LABS: Glucose,Whole Blood 101 mg/dL (75-99)
--- NOTE | 2019-02-20 04:50 | ED ---
Weakness HPI - General Chief complaint: Weakness Stated complaint: Adominal Pain Time Seen by Provider: 02/20/19 04:20 Source: EMS Mode of arrival: EMS Limitations: no limitations - History of Present Illness Initial comments: Patient is 73-year-old woman who presents with the complaint that she is not feeling well. She states that she is feeling generalized weakness and fatigue, as well as being shaky. She noted the onset of the symptoms this morning when she got up to try to use the bathroom. Patient states that this is reminding her of a previous episode in which her ammonia level was high. The patient denies focal pain. No dyspnea. No nausea or vomiting. No change in bowel movements or urination. MD Complaint: generalized weakness, lack of energy -: hour(s) Location: generalized Consistency: constant Improves with: none Worsens with: none - Related Data Home Medications Medication Instructions Recorded Confirmed Dicyclomine [Bentyl] 10 mg PO TID 10/23/18 01/31/19 Omeprazole [PriLOSEC] 20 mg PO BID 10/23/18 01/31/19 Sucralfate [Carafate] 1 gm PO QID 10/23/18 01/31/19 Insulin Regular, Human [NovoLIN R] 8 unit SQ AC-TID 10/24/18 01/31/19 Magnesium Oxide [William] 500 mg PO DAILY 12/30/18 01/31/19 Cholecalciferol [Vitamin D3] 4,000 unit PO DAILY 01/16/19 01/31/19 Ferrous Sulfate [Iron (65 MG 325 mg PO BID 01/31/19 01/31/19 Elemental)] Metoprolol Tartrate 12.5 mg PO DAILY 01/31/19 01/31/19 Previous Rx's Medication Instructions Recorded Spironolactone [Aldactone] 50 mg PO BID 30 Days #60 tab 12/21/18 buPROPion SR [Wellbutrin SR] 150 mg PO DAILY #30 tablet.er 12/21/18 Torsemide [Demadex] 20 mg PO DAILY 30 Days #30 tab 01/09/19 Insulin NPH [humuLIN N] 18 unit SQ BID vial 02/06/19 Lactulose [Cephulac] 30 gm PO BID ml 02/06/19 Morphine Sulfate ER [Ms Contin] 15 mg PO Q12HR #6 tablet 02/06/19 Nitrofurantoin Monohyd/M-Cryst 100 mg PO BID #10 cap 02/06/19 [Macrobid] Rifaximin [Xifaxan] 550 mg PO BID tablet 02/06/19 clonazePAM [KlonoPIN] 0.5 mg PO DAILY PRN #3 tab 02/06/19 Allergies Allergy/AdvReac Type Severity Reaction Status Date / Time amlodipine Allergy Rash/Hives Verified 02/20/19 04:26 oxycodone Allergy Rash/Hives Verified 02/20/19 04:26 Penicillins Allergy Rash/Hives Verified 02/20/19 04:26 hydromorphone [From Dilaudid] AdvReac Mild tactile Verified 02/20/19 04:26 disturbance GREG Inhibitors AdvReac Cough Verified 02/20/19 04:26 sodium dodecyclbenzene Allergy Rash/Hives Uncoded 02/20/19 04:26 sulfonate Review of Systems ROS Statement: Those systems with pertinent positive or pertinent negative responses have been documented in the HPI. ROS Other: All systems not noted in ROS Statement are negative. Constitutional: Reports: weakness. Denies: fever, chills Eyes: Denies: vision change Respiratory: Denies: cough, dyspnea Cardiovascular: Denies: chest pain, palpitations, edema, syncope Gastrointestinal: Denies: abdominal pain, vomiting, diarrhea, constipation, melena, hematochezia Genitourinary: Denies: dysuria, hematuria Skin: Denies: rash Neurological: Denies: headache, weakness Past Medical History Past Medical History: Cancer, Diabetes Mellitus, GERD/Reflux, Hypertension, Liver Disease, Myocardial Infarction ([place]), Renal Disease Additional Past Medical History / Comment(s): Pt recently admitted to [facility] on 01/26/19 with nausea/vomiting, acute kidney injury, hypotension. Other Hx: Hepatocellular liver cancer with chemo immobilizations-last time being 11/2018, ascities with paracentesis's, nonalcoholic liver cirrhosis, pancytopenia, chronic elevated LFTs, stomach ulcer, diverticular disease, IDDM type II, iron anemia, CKD, Last Myocardial Infarction Date:: unk History of Any Multi-Drug Resistant Organisms: MRSA Date of last positivie culture/infection: 12/30/18 MDRO Source:: MRSA URINE Past Surgical History: Appendectomy, Bowel Resection, Section, Cholecystectomy, Hysterectomy, Tonsillectomy Additional Past Surgical History / Comment(s): Chemo immobilizations, liver biopsies, paracentesis, bowel resection d/t diverticulitis/ileostomy, R rotator cuff repair, carpal tunnel release-laterality unknown. Past Anesthesia/Blood Transfusion Reactions: No Reported Reaction Past Psychological History: Anxiety, Depression Smoking Status: Former smoker Past Alcohol Use History: None Reported Past Drug Use History: None Reported - Past Family History Mother History Unknown: Yes Family Medical History: Congestive Heart Failure (CHF) General Exam Limitations: no limitations General appearance: alert, in no apparent distress Head exam: Present: atraumatic, normocephalic Eye exam: Present: normal appearance. Absent: scleral icterus, conjunctival injection ENT exam: Present: normal oropharynx Neck exam: Present: normal inspection Respiratory exam: Present: normal lung sounds bilaterally. Absent: respiratory distress, wheezes, rales, rhonchi, stridor Cardiovascular Exam: Present: regular rate, normal rhythm, normal heart sounds. Absent: systolic murmur, diastolic murmur, rubs, gallop GI/Abdominal exam: Present: soft. Absent: distended, tenderness, guarding, rebound, rigid, mass Extremities exam: Present: normal inspection, normal capillary refill. Absent: pedal edema, calf tenderness Back exam: Present: normal inspection Neurological exam: Present: alert, oriented X3. Absent: motor sensory deficit Skin exam: Present: warm, dry, intact, normal color. Absent: rash Course Vital Signs 02/20/19 02/20/19 02/20/19 04:19 06:07 06:28 Temperature 98.8 F 98.3 F Pulse Rate 65 56 L 58 L Respiratory 18 18 18 Rate Blood Pressure 117/86 114/53 105/51 O2 Sat by Pulse 96 95 97 Oximetry 02/20/19 06:53 Temperature 97.7 F Pulse Rate 68 Respiratory 18 Rate Blood Pressure 115/53 O2 Sat by Pulse 99 Oximetry EKG Findings - EKG Results: EKG: interpreted by LEN, sinus rhythm (Underlying rhythm is sinus with frequent bigeminy. Rate 67.), normal axis - Blocks, [place], Hypertrophy, ST Abn: AV and intraventricular conduction: right bundle branch block (fixed/intermittent, complete/incomplete) Chamber hypertrophy or enlargement: left ventricular hypertrophy or enlargement (LVE) Medical Decision Making - Lab Data Result diagrams: 02/20/19 04:44 02/20/19 04:44 Lab Results 02/20/19 02/20/19 02/20/19 Range/Units 04:34 04:44 04:44 WBC 5.9 (3.8-10.6) k/uL RBC 3.65 L (3.80-5.40) m/uL Hgb 12.2 (11.4-16.0) gm/dL Hct 36.3 (34.0-46.0) % MCV 99.3 (80.0-100.0) fL MCH 33.4 (25.0-35.0) pg MCHC 33.6 (31.0-37.0) g/dL RDW 16.3 H (11.5-15.5) % Plt Count 71 L (150-450) k/uL Neutrophils % 59 % Lymphocytes % 28 % Monocytes % 7 % Eosinophils % 4 % Basophils % 0 % Neutrophils # 3.5 (1.3-7.7) k/uL Lymphocytes # 1.7 (1.0-4.8) k/uL Monocytes # 0.4 (0-1.0) k/uL Eosinophils # 0.2 (0-0.7) k/uL Basophils # 0.0 (0-0.2) k/uL Manual Slide Review Performed Anisocytosis Slight Macrocytosis Slight PT (9.0-12.0) sec INR (<1.2) APTT (22.0-30.0) sec Sodium 136 L (137-145) mmol/L Potassium 3.6 (3.5-5.1) mmol/L Chloride 106 (98-107) mmol/L Carbon Dioxide 22 (22-30) mmol/L Anion Gap 8 mmol/L BUN 24 H (7-17) mg/dL Creatinine 1.22 H (0.52-1.04) mg/dL Est GFR (CKD-EPI)AfAm 52 (>60 ml/min/1.73 sqM) Est GFR (CKD-EPI)NonAf 45 (>60 ml/min/1.73 sqM) Glucose 94 (74-99) mg/dL POC Glucose (mg/dL) 101 H (75-99) mg/dL POC Glu Community Administrator ID Aida Beck Plasma Lactic Acid Carlos (0.7-2.0) mmol/L Calcium 8.8 (8.4-10.2) mg/dL Magnesium 1.7 (1.6-2.3) mg/dL Total Bilirubin 1.8 H (0.2-1.3) mg/dL AST 49 H (14-36) U/L ALT 39 (9-52) U/L Alkaline Phosphatase 301 H (38-126) U/L Ammonia (<30) umol/L Troponin I (0.000-0.034) ng/mL Total Protein 6.5 (6.3-8.2) g/dL Albumin 2.9 L (3.5-5.0) g/dL 02/20/19 02/20/19 02/20/19 Range/Units 04:44 04:44 04:44 WBC (3.8-10.6) k/uL RBC (3.80-5.40) m/uL Hgb (11.4-16.0) gm/dL Hct (34.0-46.0) % MCV (80.0-100.0) fL MCH (25.0-35.0) pg MCHC (31.0-37.0) g/dL RDW (11.5-15.5) % Plt Count (150-450) k/uL Neutrophils % % Lymphocytes % % Monocytes % % Eosinophils % % Basophils % % Neutrophils # (1.3-7.7) k/uL Lymphocytes # (1.0-4.8) k/uL Monocytes # (0-1.0) k/uL Eosinophils # (0-0.7) k/uL Basophils # (0-0.2) k/uL Manual Slide Review Anisocytosis Macrocytosis PT 12.6 H (9.0-12.0) sec INR 1.2 H (<1.2) APTT 27.9 (22.0-30.0) sec Sodium (137-145) mmol/L Potassium (3.5-5.1) mmol/L Chloride (98-107) mmol/L Carbon Dioxide (22-30) mmol/L Anion Gap mmol/L BUN (7-17) mg/dL Creatinine (0.52-1.04) mg/dL Est GFR (CKD-EPI)AfAm (>60 ml/min/1.73 sqM) Est GFR (CKD-EPI)NonAf (>60 ml/min/1.73 sqM) Glucose (74-99) mg/dL POC Glucose (mg/dL) (75-99) mg/dL POC Glu Community Administrator ID Plasma Lactic Acid Carlos 1.7 (0.7-2.0) mmol/L Calcium (8.4-10.2) mg/dL Magnesium (1.6-2.3) mg/dL Total Bilirubin (0.2-1.3) mg/dL AST (14-36) U/L ALT (9-52) U/L Alkaline Phosphatase (38-126) U/L Ammonia 217 H (<30) umol/L Troponin I 0.074 H* (0.000-0.034) ng/mL Total Protein (6.3-8.2) g/dL Albumin (3.5-5.0) g/dL Disposition Clinical Impression: Hepatic encephalopathy, Elevated troponin I level, Change in mental status Disposition: ADMITTED IP TO THIS HOSP Condition: Poor Referrals: Gilma Martinez MD [Primary Care Provider] - 1-2 days
[2019-02-20 04:57] LABS: Anisocytosis Slight; Basophils % (A) 0 %; Eosinophils # (A) 0.2 k/uL (0-0.7); Eosinophils % (A) 4 %; HCT 36.3 % (34.0-46.0); HGB 12.2 gm/dL (11.4-16.0); Lymphocytes # (A) 1.7 k/uL (1.0-4.8); Lymphocytes % (A) 28 %; MCH 33.4 pg (25.0-35.0); MCHC 33.6 g/dL (31.0-37.0); MCV 99.3 fL (80.0-100.0); Macrocytosis Slight; Mean Platelet Volume 9.4; Monocytes # (A) 0.4 k/uL (0-1.0); Monocytes % (A) 7 %; Neutrophils # (A) 3.5 k/uL (1.3-7.7); Neutrophils % (A) 59 %; RBC 3.65 m/uL (3.80-5.40); RDW 16.3 % (11.5-15.5); WBC 5.9 k/uL (3.8-10.6)
[2019-02-20 05:10] LABS: Lactic Acid, Venous 1.7 mmol/L (0.7-2.0)
[2019-02-20 05:11] LABS: Albumin 2.9 g/dL (3.5-5.0); Calcium 8.8 mg/dL (8.4-10.2); Magnesium 1.7 mg/dL (1.6-2.3); Potassium 3.6 mmol/L (3.5-5.1); Total Bilirubin 1.8 mg/dL (0.2-1.3); Total Protein 6.5 g/dL (6.3-8.2)
--- NOTE | 2019-02-20 05:11 | XR ---
EXAM: XR Chest, 2 Views. CLINICAL HISTORY: Reason: Weakness TECHNIQUE: Frontal and lateral views of the chest. COMPARISON: 01/31/19. FINDINGS: Lungs: Lung volumes are within normal limits. No evidence of airspace consolidation. No acute interstitial abnormality. Pleural spaces: No pleural effusions. No pneumothorax. Heart: Heart size top normal. Mediastinum: No mediastinal widening or shift. Bones: Unremarkable. No acute fracture. IMPRESSION: No evidence of active cardiopulmonary abnormality.
[2019-02-20 05:12] LABS: INR 1.2 (<1.2); Partial Thromboplastin Time 27.9 sec (22.0-30.0); Prothrombin Time 12.6 sec (9.0-12.0)
[2019-02-20] MEDS ORDERED: LACTULOSE 20 GM/30 ML CUP PO ONE (06:00)
[2019-02-20] MEDS ORDERED: ONDANSETRON 4 MG/2 ML VIAL IVP STA (06:09)
[2019-02-20 06:14] LABS: Platelet Count 71 k/uL (150-450)
[2019-02-20] MEDS ORDERED: NALOXONE 0.4 MG/ML 1 ML VIAL IV PRN (06:55)
[2019-02-20] MEDS ORDERED: clonazePAM 0.5 MG TAB PO PRN (08:48)
[2019-02-20] MEDS: METOPROLOL TARTRATE 12.5 MG TAB PO SCH (10:41)
[2019-02-20] MEDS: SPIRONOLACTONE 25 MG TAB PO SCH ×2 (10:41→21:25)
[2019-02-20] MEDS: RIFAXIMIN 550 MG TABLET PO SCH (10:42)
[2019-02-20] MEDS: CHOLECALCIFEROL 1,000 UNIT TAB PO SCH (10:42)
[2019-02-20] MEDS: DICYCLOMINE 10 MG CAP PO SCH ×3 (10:42→21:24)
[2019-02-20] MEDS: buPROPion SR 150 MG TABLET.ER PO SCH (10:42)
[2019-02-20] MEDS: FERROUS SULFATE 325 MG TAB PO SCH ×2 (10:42→21:24)
[2019-02-20] MEDS: MAGNESIUM OXIDE 400 MG TAB PO SCH (10:42)
[2019-02-20] MEDS ORDERED: ONDANSETRON 4 MG/2 ML VIAL IVP PRN (10:43)
[2019-02-20] MEDS: INSULIN NPH 300 UNIT/3 ML VIAL SQ SCH ×2 (10:44→22:37)
--- NOTE | 2019-02-20 10:44 | P.HPIM ---
History of Present Illness H&P Date: 02/20/19 This is a 73-year-old patient who presented with complaints of weakness and not feeling well. Patient reports that since last admission possibly 2 weeks ago patient was discharged to rehab. Patient reports she went home on Wednesday feeling improved. Over the week and became increasingly shaky and weak. Patient was concerned about her ammonia level due to previous episodes of having high ammonia. Patient does report that she has been taking her lactulose and all medications as ordered. Patient has a past medical history of hepatocellular carcinoma status post chemo cessation, nonalcoholic liver cirrhosis, diverticulitis with ileostomy placement, chronic abdominal pain due to recurring ascites, chronic kidney disease and previous UTI with MRSA. Chest x-ray completed in ER showing no evidence of acute cardiopulmonary abnormality. EKG completed showing sinus rhythm with frequent premature ventricular complexes in a pattern of bigeminy right bundle shirley block. Patient's ammonia on a dmission to 17. Patient also having slightly elevated troponin at 0.074. Cardiology and GI services consulted. Serial troponins ordered. Patient was given stat dose of lactulose in ER. Repeat ammonia level 139. At this time patient states she feels slightly improved. Patient denies chest pain or shortness of breath. Patient denies any nausea vomiting or diarrhea. Patient does complain of her chronic abdominal pain. Patient denies any burning with urination. Review of Systems Please refer to HPI otherwise unremarkable Past Medical History Past Medical History: Cancer, Diabetes Mellitus, GERD/Reflux, Hypertension, L iver Disease, Myocardial Infarction (CT), Renal Disease Additional Past Medical History / Comment(s): Pt recently admitted to [facility] on 01/31/19 with AMS/unresponsive likely d/t hepatic encephalopathy/elevated ammonia levels, elevated troponin thought non cardiac, UTI, urinary retention, acute on chronic kidney disease. Other Hx; Hepatocellular liver cancer with chemo im mobilizations-last time being 2017, ascities with paracentesis's, nonalcoholic liver cirrhosis, pancytopenia, high ammonia levels, chronic elevated LFTs, stomach ulcer, diverticular disease with ileostomy, IDDM type II, iron anemia, CKD stage II., Last Myocardial Infarction Date:: unk History of Any Multi-Drug Resistant Organisms: MRSA Date of last positivie culture/infection: 12/30/18 MDRO Source:: MRSA URINE Past Surgical History: Appendectomy, Bowel Resection, Section, Cholecystectomy, Hysterectomy, Tonsillectomy Additional Past Surgical History / Comment(s): Chemo immobilizations, liver biopsies, paracentesis, bowel resection d/t diverticulitis/ileostomy, R rotator cuff repair, carpal tunnel release-laterality unknown. Past Anesthesia/Blood Transfusion Reactions: No Reported Reaction Smoking Status: Former smoker - Past Family History Mother History Unknown: Yes Family Medical History: Congestive Heart Failure (CHF) Medications and Allergies Home Medications Medication Instructions Recorded Confirmed Type Dicyclomine [Bentyl] 10 mg PO TID 10/23/18 02/20/19 History Omeprazole [PriLOSEC] 20 mg PO BID 10/23/18 02/20/19 History Sucralfate [Carafate] 1 gm PO QID 10/23/18 02/20/19 History Insulin Regular, Human [NovoLIN R] 10 unit SQ AC-TID 10/24/18 02/20/19 History Spironolactone [Aldactone] 50 mg PO BID 30 Days #60 tab 12/21/18 02/20/19 Rx buPROPion SR [Wellbutrin SR] 150 mg PO DAILY #30 tablet.er 12/21/18 02/20/19 Rx Magnesium Oxide [William] 500 mg PO DAILY 12/30/18 02/20/19 History Torsemide [Demadex] 20 mg PO DAILY 30 Days #30 tab 01/09/19 02/20/19 Rx Cholecalciferol [Vitamin D3] 4,000 unit PO DAILY 01/16/19 02/20/19 History Ferrous Sulfate [Iron (65 MG 325 mg PO BID 01/31/19 02/20/19 History Elemental)] Metoprolol Tartrate 12.5 mg PO DAILY 01/31/19 02/20/19 History Insulin NPH [humuLIN N] 18 unit SQ BID vial 02/06/19 02/20/19 Rx Lactulose [Cephulac] 30 gm PO BID ml 02/06/19 02/20/19 Rx Morphine Sulfate ER [Ms Contin] 15 mg PO Q12HR #6 tablet 02/06/19 02/20/19 Rx Rifaximin [Xifaxan] 550 mg PO BID tablet 02/06/19 02/20/19 Rx clonazePAM [KlonoPIN] 0.5 mg PO DAILY PRN #3 tab 02/06/19 02/20/19 Rx Allergies Allergy/AdvReac Type Severity Reaction Status Date / Time amlodipine Allergy Rash/Hives Verified 02/20/19 07:39 oxycodone Allergy Rash/Hives Verified 02/20/19 07:39 Penicillins Allergy Rash/Hives Verified 02/20/19 07:39 hydromorphone [From Dilaudid] AdvReac Mild tactile Verified 02/20/19 07:39 disturbance GREG Inhibitors AdvReac Cough Verified 02/20/19 07:39 sodium dodecyclbenzene Allergy Rash/Hives Uncoded 02/20/19 04:26 sulfonate Physical Exam Vitals: Vital Signs Temp Pulse Resp BP Pulse Ox 02/20/19 07:30 55 L 18 115/87 96 02/20/19 06:53 97.7 F 68 18 115/53 99 02/20/19 06:28 58 L 18 105/51 97 02/20/19 06:07 98.3 F 56 L 18 114/53 95 02/20/19 04:19 98.8 F 65 18 117/86 96 Intake and Output 02/19/19 02/20/19 02/20/19 22:59 06:59 14:59 Other: Weight 90.718 kg Head normocephalic Neck supple Lungs clear to auscultation bilaterally no wheezing or crackles Heart regular rate and rhythm S1-S2, no rub or gallop Abdomen is soft nontender nondistended positive bowel sounds no hepatosplenomegaly. Right lower quadrant ostomy in place. Minimal ascites Extremities no edema Neuro alert and orientated to 3 Results CBC & Chem 7: 02/20/19 04:44 02/20/19 04:44 Labs: Abnormal Lab Results - Last 24 Hours (Table) 02/20/19 02/20/19 02/20/19 Range/Units 04:34 04:44 04:44 RBC 3.65 L (3.80-5.40) m/uL RDW 16.3 H (11.5-15.5) % Plt Count 71 L (150-450) k/uL PT (9.0-12.0) sec INR (<1.2) Sodium 136 L (137-145) mmol/L BUN 24 H (7-17) mg/dL Creatinine 1.22 H (0.52-1.04) mg/dL POC Glucose (mg/dL) 101 H (75-99) mg/dL Total Bilirubin 1.8 H (0.2-1.3) mg/dL AST 49 H (14-36) U/L Alkaline Phosphatase 301 H (38-126) U/L Ammonia (<30) umol/L Troponin I (0.000-0.034) ng/mL Albumin 2.9 L (3.5-5.0) g/dL 02/20/19 02/20/19 02/20/19 Range/Units 04:44 04:44 04:44 RBC (3.80-5.40) m/uL RDW (11.5-15.5) % Plt Count (150-450) k/uL PT 12.6 H (9.0-12.0) sec INR 1.2 H (<1.2) Sodium (137-145) mmol/L BUN (7-17) mg/dL Creatinine (0.52-1.04) mg/dL POC Glucose (mg/dL) (75-99) mg/dL Total Bilirubin (0.2-1.3) mg/dL AST (14-36) U/L Alkaline Phosphatase (38-126) U/L Ammonia 217 H (<30) umol/L Troponin I 0.074 H* (0.000-0.034) ng/mL Albumin (3.5-5.0) g/dL 02/20/19 Range/Units 08:58 RBC (3.80-5.40) m/uL RDW (11.5-15.5) % Plt Count (150-450) k/uL PT (9.0-12.0) sec INR (<1.2) Sodium (137-145) mmol/L BUN (7-17) mg/dL Creatinine (0.52-1.04) mg/dL POC Glucose (mg/dL) (75-99) mg/dL Total Bilirubin (0.2-1.3) mg/dL AST (14-36) U/L Alkaline Phosphatase (38-126) U/L Ammonia 139 H (<30) umol/L Troponin I (0.000-0.034) ng/mL Albumin (3.5-5.0) g/dL Thrombosis Risk Factor Assmnt - Choose All That Apply Any of the Below Risk Factors Present?: Yes Each Factor Represents 1 point: Obesity (BMI >25) Other Risk Factors: Yes Each Risk Factor Represents 2 Points: Age 61-74 years, Malignancy Other congenital or acquired thrombophilia - If yes, enter type in comment: No Thrombosis Risk Factor Assessment Total Risk Factor Score: 5 Thrombosis Risk Factor Assessment Level: High Risk Assessment and Plan Assessment: 1. Increased weakness likely due to elevated ammonia level. Ammonia level CCXIII. 1 dose lactulose given. Recheck 139. Continue lactulose twice a day and /Xifoxan. GI Services consult 2. Elevated troponin. Initial troponin 0.074. Serial troponins ordered. Cardiology services consulted 3. Chronic kidney disease stage III. Creatinine improving to 1.2 to her previous admission to monitor 4. History of UTI. Patient was treated with Macrobid for 5 days on discharge from previous admission. Repeat UA has been ordered 5. History of hepatocellular carcinoma status post embolization in 2012, 2015 2018. 6. History of chronic abdominal pain due to recurring abdominal ascites. Home meds ordered 7. History of diverticulitis with ileostomy placement 8. History of nonalcoholic liver cirrhosis 9. History of pancytopenia due to known liver cancer secondary to chronic liver cirrhosis 10. Insulin-dependent diabetes mellitus. Hemoglobin A1c 5.5 on 01/04/2019. Home medications ordered 11. Iron deficiency anemia. Patient maintained on ferrous sulfate 12. History of depression 13. Chronic elevated LFTs due to chronic liver malignancy DVT prophylaxis SCDs due to pancytopenia. GI prophylaxis Protonix Time with Patient: Greater than 30 (Greater than 60% of the total time spent in counseling and coordination of care. I performed an examination of the patient and discussed their management with the Nurse Practitioner. I have reviewed the Nurse Practitioner's notes and agree with the documented findings and plan of care)
[2019-02-20] MEDS: SODIUM CHLORIDE 0.9% 1,000 ML IV SCH (10:50)
[2019-02-20 11:09] LABS: Appearance,Urine Clear (Clear); Bacteria,Urine Few /hpf; Bilirubin,Urine Negative (Negative); Blood,Urine Negative (Negative); Color,Urine Yellow; Glucose,Urine (UA) Negative (Negative); Hyaline Casts,Urine 6 /lpf (0-2); Ketones,Urine Negative (Negative); Leukocyte Esterase,Urine Small (Negative); Mucus,Urine Rare /hpf; Nitrite,Urine Negative (Negative); Protein,Urine Negative (Negative); RBC,Urine 8 /hpf (0-5); Squamous Epithelial Cell,Urine 1 /hpf (0-4); Urobilinogen,Urine <2.0 mg/dL (<2.0); WBC,Urine 8 /hpf (0-5)
[2019-02-20] MEDS: SUCRALFATE 1 GM TAB PO SCH ×4 (11:26→21:25)
[2019-02-20] MEDS: MORPHINE SULFATE ER 15 MG TABLET PO SCH ×2 (11:26→21:24)
[2019-02-20] MEDS: TORSEMIDE 20 MG TAB PO SCH (11:27)
[2019-02-20] MEDS: INSULIN REGULAR 100 UNIT/ML VIAL SQ SCH ×2 (11:30→21:17)
[2019-02-20 11:31] LABS: Glucose,Whole Blood 144 mg/dL (75-99)
[2019-02-20 16:27] LABS: Glucose,Whole Blood 182 mg/dL (75-99)
--- NOTE | 2019-02-20 18:52 | P.CONS ---
History of Present Illness - Reason for Consult Consult date: 02/20/19 Hepatic encephalopathy Requesting physician: Artemio Lea - Chief Complaint Weakness - History of Present Illness 73 year female with a history of hepatocellular carcinoma status post chemoembolization, underlying nonalcoholic liver cirrhosis, portal hypertension and ascites paracentesis, diverticular disease with ileostomy placement, chronic abdominal pain, chronic kidney disease who presents to the hospital with a constellation of symptoms. The patient reports waking up at night and feeling extremely weak, shaking and "didn't feel right". She reports that prior to this happening she was having good bowel movements on lactulose therapy which she takes as prescribed for hepatic encephalopathy, however the consistency of output from her ostomy had become more thick. She denies any black stools or blood from the ostomy. On presentation to the hospital she was found to have a ammonia level of 217 which subsequently trended down to 139. Other lab evaluation was significant for a WBC 5.9, hemoglobin 12.2 and platelet count 71,000. Currently seen lying in bed she is reporting that she is feeling somewhat better with improvement in the symptoms. Review of Systems REVIEW OF SYSTEMS: CONSTITUTIONAL: Denies any fevers, chills, weight change report weakness and shaking on presentation. CARDIOVASCULAR: Denies any chest pain, palpitations high or low blood pressures RESPIRATORY: Denies any shortness of breath, hemoptysis or cough. GENITOURINARY: No dysuria or hematuria. MUSCULOSKELETAL: No weakness reported. SKIN: Denies any new rashes or lesions, jaundice or pallor. PSYCHIATRIC: Denies any depression or anxiety. NEUROLOGY: Denies headache, denies any new focal deficits. EARS/NOSE/THROAT: No recent hearing change, congestion, nasal discharge or sore throat. EYES: No pain in eyes, discharge or change in vision. GASTROINTESTINAL: As per HPI. Past Medical History Past Medical History: Cancer, Diabetes Mellitus, GERD/Reflux, Hypertension, Liver Disease, Myocardial Infarction ([place]), Renal Disease Additional Past Medical History / Comment(s): Pt recently admitted to [facility] on 01/31/19 with AMS/unresponsive likely d/t hepatic encephalopathy/elevated ammonia levels, elevated troponin thought non cardiac, UTI, urinary retention, acute on chronic kidney disease. Other Hx; Hepatocellular liver cancer with chemo i mmobilizations-last time being 2017, ascities with paracentesis's, nonalcoholic liver cirrhosis, pancytopenia, high ammonia levels, chronic elevated LFTs, stomach ulcer, diverticular disease with ileostomy, IDDM type II, iron anemia, CKD stage II., Last Myocardial Infarction Date:: unk History of Any Multi-Drug Resistant Organisms: MRSA Year Discovered:: 12/30/18 MDRO Source:: MRSA URINE Past Surgical History: Appendectomy, Bowel Resection, Section, Cholecystectomy, Hysterectomy, Tonsillectomy Additional Past Surgical History / Comment(s): Chemo immobilizations, liver biopsies, paracentesis, bowel resection d/t diverticulitis/ileostomy, R rotator cuff repair, carpal tunnel release-laterality unknown. Past Anesthesia/Blood Transfusion Reactions: No Reported Reaction Smoking Status: Former smoker - Past Family History Mother History Unknown: Yes Family Medical History: Congestive Heart Failure (CHF) Medications and Allergies Home Medications Medication Instructions Recorded Confirmed Type Dicyclomine [Bentyl] 10 mg PO TID 10/23/18 02/20/19 History Omeprazole [PriLOSEC] 20 mg PO BID 10/23/18 02/20/19 History Sucralfate [Carafate] 1 gm PO QID 10/23/18 02/20/19 History Insulin Regular, Human [NovoLIN R] 10 unit SQ AC-TID 10/24/18 02/20/19 History Spironolactone [Aldactone] 50 mg PO BID 30 Days #60 tab 12/21/18 02/20/19 Rx buPROPion SR [Wellbutrin SR] 150 mg PO DAILY #30 tablet.er 12/21/18 02/20/19 Rx Magnesium Oxide [William] 500 mg PO DAILY 12/30/18 02/20/19 History Torsemide [Demadex] 20 mg PO DAILY 30 Days #30 tab 01/09/19 02/20/19 Rx Cholecalciferol [Vitamin D3] 4,000 unit PO DAILY 01/16/19 02/20/19 History Ferrous Sulfate [Iron (65 MG 325 mg PO BID 01/31/19 02/20/19 History Elemental)] Metoprolol Tartrate 12.5 mg PO DAILY 01/31/19 02/20/19 History Insulin NPH [humuLIN N] 18 unit SQ BID vial 02/06/19 02/20/19 Rx Lactulose [Cephulac] 30 gm PO BID ml 02/06/19 02/20/19 Rx Morphine Sulfate ER [Ms Contin] 15 mg PO Q12HR #6 tablet 02/06/19 02/20/19 Rx Rifaximin [Xifaxan] 550 mg PO BID tablet 02/06/19 02/20/19 Rx clonazePAM [KlonoPIN] 0.5 mg PO DAILY PRN #3 tab 02/06/19 02/20/19 Rx Allergies Allergy/AdvReac Type Severity Reaction Status Date / Time amlodipine Allergy Rash/Hives Verified 02/20/19 07:39 oxycodone Allergy Rash/Hives Verified 02/20/19 07:39 Penicillins Allergy Rash/Hives Verified 02/20/19 07:39 hydromorphone [From Dilaudid] AdvReac Mild tactile Verified 02/20/19 07:39 disturbance GREG Inhibitors AdvReac Cough Verified 02/20/19 07:39 sodium dodecyclbenzene Allergy Rash/Hives Uncoded 02/20/19 04:26 sulfonate Physical Exam Vitals: Vital Signs Temp Pulse Pulse Resp BP BP Pulse Ox 02/20/19 16:00 98.5 F 72 16 92/56 100 02/20/19 11:54 97.8 F 49 L 14 110/78 100 02/20/19 07:30 55 L 18 115/87 96 02/20/19 06:53 97.7 F 68 18 115/53 99 02/20/19 06:28 58 L 18 105/51 97 02/20/19 06:07 98.3 F 56 L 18 114/53 95 02/20/19 04:19 98.8 F 65 18 117/86 96 Intake and Output 02/20/19 02/20/19 02/20/19 06:59 14:59 22:59 Intake Total 600 1460 Balance 600 1460 Intake: Intake, IV Titration 80 Amount Sodium Chloride 0.9% 1, 80 000 ml @ 20 mls/hr IV . Q24H [facility] Rx#:[id number] Oral 600 1380 Other: Weight 90.718 kg 84.6 kg On physical examination, patient appears comfortable in no apparent distress. HEAD: Normocephalic, atraumatic. EYES: No scleral icterus. No conjunctival injection. MOUTH: No lesions, tongue midline. NECK: Trachea midline, no gross abnormalities. CHEST: Decreased air entry in all lung simon. HEART: S1-S2 appreciated. ABDOMEN: Soft, obese with ostomy on the right side of her abdomen-appearing intact with good stool output. Bowel sounds are positive. No organomegaly. No guarding or rigidity. EXTREMITIES: Bilateral pedal edema. SKIN: No rashes, no jaundice. NEUROLOGIC: Alert and oriented x3. No focal deficits. Results CBC & Chem 7: 02/20/19 04:44 02/20/19 04:44 Labs: Abnormal Lab Results - Last 24 Hours (Table) 02/20/19 02/20/19 02/20/19 Range/Units 04:34 04:44 04:44 RBC 3.65 L (3.80-5.40) m/uL RDW 16.3 H (11.5-15.5) % Plt Count 71 L (150-450) k/uL PT (9.0-12.0) sec INR (<1.2) Sodium 136 L (137-145) mmol/L BUN 24 H (7-17) mg/dL Creatinine 1.22 H (0.52-1.04) mg/dL POC Glucose (mg/dL) 101 H (75-99) mg/dL Total Bilirubin 1.8 H (0.2-1.3) mg/dL AST 49 H (14-36) U/L Alkaline Phosphatase 301 H (38-126) U/L Ammonia (<30) umol/L Troponin I (0.000-0.034) ng/mL Albumin 2.9 L (3.5-5.0) g/dL Ur Leukocyte Esterase (Negative) Urine RBC (0-5) /hpf Urine WBC (0-5) /hpf Urine Bacteria (None) /hpf Hyaline Casts (0-2) /lpf Urine Mucus (None) /hpf 02/20/19 02/20/19 02/20/19 Range/Units 04:44 04:44 04:44 RBC (3.80-5.40) m/uL RDW (11.5-15.5) % Plt Count (150-450) k/uL PT 12.6 H (9.0-12.0) sec INR 1.2 H (<1.2) Sodium (137-145) mmol/L BUN (7-17) mg/dL Creatinine (0.52-1.04) mg/dL POC Glucose (mg/dL) (75-99) mg/dL Total Bilirubin (0.2-1.3) mg/dL AST (14-36) U/L Alkaline Phosphatase (38-126) U/L Ammonia 217 H (<30) umol/L Troponin I 0.074 H* (0.000-0.034) ng/mL Albumin (3.5-5.0) g/dL Ur Leukocyte Esterase (Negative) Urine RBC (0-5) /hpf Urine WBC (0-5) /hpf Urine Bacteria (None) /hpf Hyaline Casts (0-2) /lpf Urine Mucus (None) /hpf 02/20/19 02/20/19 02/20/19 Range/Units 08:58 10:45 10:56 RBC (3.80-5.40) m/uL RDW (11.5-15.5) % Plt Count (150-450) k/uL PT (9.0-12.0) sec INR (<1.2) Sodium (137-145) mmol/L BUN (7-17) mg/dL Creatinine (0.52-1.04) mg/dL POC Glucose (mg/dL) (75-99) mg/dL Total Bilirubin (0.2-1.3) mg/dL AST (14-36) U/L Alkaline Phosphatase (38-126) U/L Ammonia 139 H (<30) umol/L Troponin I 0.082 H* (0.000-0.034) ng/mL Albumin (3.5-5.0) g/dL Ur Leukocyte Esterase Small H (Negative) Urine RBC 8 H (0-5) /hpf Urine WBC 8 H (0-5) /hpf Urine Bacteria Few H (None) /hpf Hyaline Casts 6 H (0-2) /lpf Urine Mucus Rare H (None) /hpf 02/20/19 02/20/19 02/20/19 Range/Units 11:27 16:18 16:24 RBC (3.80-5.40) m/uL RDW (11.5-15.5) % Plt Count (150-450) k/uL PT (9.0-12.0) sec INR (<1.2) Sodium (137-145) mmol/L BUN (7-17) mg/dL Creatinine (0.52-1.04) mg/dL POC Glucose (mg/dL) 144 H 182 H (75-99) mg/dL Total Bilirubin (0.2-1.3) mg/dL AST (14-36) U/L Alkaline Phosphatase (38-126) U/L Ammonia (<30) umol/L Troponin I 0.073 H* (0.000-0.034) ng/mL Albumin (3.5-5.0) g/dL Ur Leukocyte Esterase (Negative) Urine RBC (0-5) /hpf Urine WBC (0-5) /hpf Urine Bacteria (None) /hpf Hyaline Casts (0-2) /lpf Urine Mucus (None) /hpf Abdominal x-ray: report reviewed (No evidence of active cardiopulmonary process on chest x-ray) Assessment and Plan (1) Hepatic encephalopathy Narrative/Plan: 73-year-old with a complex medical history including cirrhosis of the liver with subsequent development of hepatocellular carcinoma for which she has received treatment in the past who presents to the hospital with complaints of weakness, shaking and not feeling herself. She has had episodes of hepatic encephalopathy in the past and was taking lactulose therapy at home as prescribed. She does note some thickening of stools which may be indicative of dehydration as the cause of her worsened hepatic encephalopathy. The patient is currently receiving treatment with lactulose and Xifaxan therapy with improvement of her symptoms, with no asterixis noted on physical exam and ammonia trending down to 139 from 217. Current Visit: Yes Status: Acute Code(s): K72.90 - HEPATIC FAILURE, UNSPECIFIED WITHOUT COMA SNOMED Code(s): 30642024 (2) Change in mental status Current Visit: Yes Status: Acute Code(s): R41.82 - ALTERED MENTAL STATUS, UNSPECIFIED SNOMED Code(s): 218674912 (3) Cirrhosis of liver with ascites Current Visit: No Status: Acute Code(s): K74.60 - UNSPECIFIED CIRRHOSIS OF LIVER; R18.8 - OTHER ASCITES SNOMED Code(s): 32993147 (4) History of liver cancer Current Visit: No Status: Acute Code(s): Z85.05 - PERSONAL HISTORY OF MALIGNANT NEOPLASM OF LIVER SNOMED Code(s): 132603451 Plan: Supportive care Okay for low-sodium diet Continue lactulose twice daily and Xifaxan and twice daily, titrated for the patient having 3-4 bowel movements Continue spironolactone twice daily and torsemide for diuresis Continue Bentyl for abdominal pain Continue to monitor her symptomatically Continue Carafate and Protonix Thank you for allowing us to participate in the care of the patient we will continue to follow
[2019-02-20 20:48] LABS: Glucose,Whole Blood 262 mg/dL (75-99)
[2019-02-20] MEDS: LACTULOSE 20 GM/30 ML CUP PO SCH (21:24)
[2019-02-21 05:45] LABS: Glucose,Whole Blood 185 mg/dL (75-99)
[2019-02-21] MEDS: SODIUM CHLORIDE 0.9% 1,000 ML IV SCH (07:22)
[2019-02-21] MEDS: PANTOPRAZOLE 40 MG TABLET PO SCH (07:23)
[2019-02-21] MEDS: INSULIN REGULAR 100 UNIT/ML VIAL SQ SCH ×3 (07:23→17:29)
[2019-02-21 07:32] LABS: Anisocytosis Slight; Basophils % (A) 1 %; Eosinophils # (A) 0.2 k/uL (0-0.7); Eosinophils % (A) 4 %; HCT 32.9 % (34.0-46.0); Lymphocytes # (A) 0.9 k/uL (1.0-4.8); Lymphocytes % (A) 23 %; MCH 33.5 pg (25.0-35.0); MCHC 33.3 g/dL (31.0-37.0); MCV 100.8 fL (80.0-100.0); Macrocytosis Slight; Mean Platelet Volume 9.5; Monocytes # (A) 0.4 k/uL (0-1.0); Monocytes % (A) 9 %; Neutrophils # (A) 2.3 k/uL (1.3-7.7); Neutrophils % (A) 60 %; RBC 3.27 m/uL (3.80-5.40); RDW 16.4 % (11.5-15.5); WBC 3.9 k/uL (3.8-10.6)
[2019-02-21 07:33] LABS: Albumin 2.4 g/dL (3.5-5.0); Calcium 8.2 mg/dL (8.4-10.2); Potassium 3.4 mmol/L (3.5-5.1); Total Protein 5.6 g/dL (6.3-8.2)
[2019-02-21 08:18] LABS: Platelet Count 63 k/uL (150-450)
--- NOTE | 2019-02-21 09:49 | P.PN ---
Subjective Progress Note Date: 02/21/19 Principal diagnosis: Hepatic encephalopathy Ammonia normalized 24. Afebrile. Objective - Vital Signs Vital signs: Vital Signs Temp 98.3 F 02/21/19 04:00 Pulse 52 L 02/21/19 04:00 Resp 17 02/21/19 04:00 BP 105/43 02/21/19 04:00 Pulse Ox 96 02/21/19 04:00 Intake & Output 02/20/19 02/21/19 02/21/19 18:59 06:59 18:59 Intake Total 2059 560 240 Balance 2059 560 240 Weight 84.6 kg 87 kg Intake: Intake, IV Titration 80 80 Amount Sodium Chloride 0.9% 1, 80 80 000 ml @ 20 mls/hr IV . Q24H [facility] Rx#:[id number] Oral 1980 480 240 Other: Voiding Method Toilet # Voids 2 1 # Bowel Movements 1 - Exam General appearance: The patient is alert, oriented, in no acute distress. HET: Head is normocephalic and atraumatic. Pupils are equal and reactive. Oropharynx is clear without lesions. Neck: Supple without lymphadenopathy. Trachea midline. Heart: S1 S2. Regular rate and rhythm. Lungs: No crackles or wheezes are heard. Abdomen: Soft, nontender, nondistended with bowel sounds. Ostomy intact. No peritoneal signs. No palpable organomegaly or masses. Extremities: Bilateral pedal edema. Neurological: No focal deficits. Strength and sensation are grossly intact. - Labs CBC & Chem 7: 02/21/19 06:33 02/21/19 06:33 Labs: Abnormal Lab Results - Last 24 Hours (Table) 02/20/19 02/20/19 02/20/19 Range/Units 10:45 10:56 11:27 RBC (3.80-5.40) m/uL Hgb (11.4-16.0) gm/dL Hct (34.0-46.0) % MCV (80.0-100.0) fL RDW (11.5-15.5) % Plt Count (150-450) k/uL Lymphocytes # (1.0-4.8) k/uL Sodium (137-145) mmol/L Potassium (3.5-5.1) mmol/L BUN (7-17) mg/dL Creatinine (0.52-1.04) mg/dL Glucose (74-99) mg/dL POC Glucose (mg/dL) 144 H (75-99) mg/dL Calcium (8.4-10.2) mg/dL Total Bilirubin (0.2-1.3) mg/dL AST (14-36) U/L Alkaline Phosphatase (38-126) U/L Troponin I 0.082 H* (0.000-0.034) ng/mL Total Protein (6.3-8.2) g/dL Albumin (3.5-5.0) g/dL Ur Leukocyte Esterase Small H (Negative) Urine RBC 8 H (0-5) /hpf Urine WBC 8 H (0-5) /hpf Urine Bacteria Few H (None) /hpf Hyaline Casts 6 H (0-2) /lpf Urine Mucus Rare H (None) /hpf 02/20/19 02/20/19 02/20/19 Range/Units 16:18 16:24 20:47 RBC (3.80-5.40) m/uL Hgb (11.4-16.0) gm/dL Hct (34.0-46.0) % MCV (80.0-100.0) fL RDW (11.5-15.5) % Plt Count (150-450) k/uL Lymphocytes # (1.0-4.8) k/uL Sodium (137-145) mmol/L Potassium (3.5-5.1) mmol/L BUN (7-17) mg/dL Creatinine (0.52-1.04) mg/dL Glucose (74-99) mg/dL POC Glucose (mg/dL) 182 H 262 H (75-99) mg/dL Calcium (8.4-10.2) mg/dL Total Bilirubin (0.2-1.3) mg/dL AST (14-36) U/L Alkaline Phosphatase (38-126) U/L Troponin I 0.073 H* (0.000-0.034) ng/mL Total Protein (6.3-8.2) g/dL Albumin (3.5-5.0) g/dL Ur Leukocyte Esterase (Negative) Urine RBC (0-5) /hpf Urine WBC (0-5) /hpf Urine Bacteria (None) /hpf Hyaline Casts (0-2) /lpf Urine Mucus (None) /hpf 02/21/19 02/21/19 02/21/19 Range/Units 05:43 06:33 06:33 RBC 3.27 L (3.80-5.40) m/uL Hgb 11.0 L (11.4-16.0) gm/dL Hct 32.9 L (34.0-46.0) % MCV 100.8 H (80.0-100.0) fL RDW 16.4 H (11.5-15.5) % Plt Count 63 L (150-450) k/uL Lymphocytes # 0.9 L (1.0-4.8) k/uL Sodium 136 L (137-145) mmol/L Potassium 3.4 L (3.5-5.1) mmol/L BUN 22 H (7-17) mg/dL Creatinine 1.17 H (0.52-1.04) mg/dL Glucose 152 H (74-99) mg/dL POC Glucose (mg/dL) 185 H (75-99) mg/dL Calcium 8.2 L (8.4-10.2) mg/dL Total Bilirubin 2.0 H (0.2-1.3) mg/dL AST 45 H (14-36) U/L Alkaline Phosphatase 202 H (38-126) U/L Troponin I (0.000-0.034) ng/mL Total Protein 5.6 L (6.3-8.2) g/dL Albumin 2.4 L (3.5-5.0) g/dL Ur Leukocyte Esterase (Negative) Urine RBC (0-5) /hpf Urine WBC (0-5) /hpf Urine Bacteria (None) /hpf Hyaline Casts (0-2) /lpf Urine Mucus (None) /hpf Microbiology - Last 24 Hours (Table) 02/20/19 05:06 Blood Culture - Preliminary Blood No Growth after 24 hours Assessment and Plan (1) Hepatic encephalopathy Narrative/Plan: 73-year-old with a complex medical history including cirrhosis of the liver with subsequent development of hepatocellular carcinoma for which she has received treatment in the past who presents to the hospital with complaints of weakness, shaking and not feeling herself. She has had episodes of hepatic encephalopathy in the past and was taking lactulose therapy at home as prescribed. She does note some thickening of stools which may be indicative of dehydration as the cau se of her worsened hepatic encephalopathy. The patient is currently receiving treatment with lactulose and Xifaxan therapy with improvement of her symptoms, with no asterixis noted on physical exam and ammonia has normalized. Current Visit: Yes Status: Acute Code(s): K72.90 - HEPATIC FAILURE, UNSPECIFIED WITHOUT COMA SNOMED Code(s): 35074965 (2) Change in mental status Current Visit: Yes Status: Acute Code(s): R41.82 - ALTERED MENTAL STATUS, UNSPECIFIED SNOMED Code(s): 710606040 (3) Cirrhosis of liver with ascites Current Visit: No Status: Acute Code(s): K74.60 - UNSPECIFIED CIRRHOSIS OF LIVER; R18.8 - OTHER ASCITES SNOMED Code(s): 61295335 (4) History of liver cancer Current Visit: No Status: Acute Code(s): Z85.05 - PERSONAL HISTORY OF M ALIGNANT NEOPLASM OF LIVER SNOMED Code(s): 008760966 Plan: 1. Supportive measures. Low sodium diet. Continue with Xifaxan and lactulose twice daily. Titrate for 3-4 bowel movements. Continue with diuretics. Bentyl for abdominal pain. Discharge per medicine. Assessment and plan a care discussed with Dr. Francois
[2019-02-21] MEDS: MORPHINE SULFATE ER 15 MG TABLET PO SCH ×2 (10:20→20:46)
[2019-02-21] MEDS: RIFAXIMIN 550 MG TABLET PO SCH ×2 (10:20→20:47)
[2019-02-21] MEDS: DICYCLOMINE 10 MG CAP PO SCH ×3 (10:20→20:46)
[2019-02-21] MEDS: MAGNESIUM OXIDE 400 MG TAB PO SCH (10:20)
[2019-02-21] MEDS: TORSEMIDE 20 MG TAB PO SCH (10:21)
[2019-02-21] MEDS: SUCRALFATE 1 GM TAB PO SCH ×4 (10:21→20:47)
[2019-02-21] MEDS: FERROUS SULFATE 325 MG TAB PO SCH ×2 (10:21→20:47)
[2019-02-21] MEDS: SPIRONOLACTONE 25 MG TAB PO SCH ×2 (10:21→20:46)
[2019-02-21] MEDS: METOPROLOL TARTRATE 12.5 MG TAB PO SCH (10:21)
[2019-02-21] MEDS: buPROPion SR 150 MG TABLET.ER PO SCH (10:21)
[2019-02-21] MEDS: CHOLECALCIFEROL 1,000 UNIT TAB PO SCH (10:21)
[2019-02-21] MEDS: INSULIN NPH 300 UNIT/3 ML VIAL SQ SCH ×2 (10:22→20:45)
[2019-02-21] MEDS: LACTULOSE 20 GM/30 ML CUP PO SCH ×2 (10:23→20:42)
--- NOTE | 2019-02-21 12:28 | P.CRDCN ---
History of Present Illness History of present illness: This is Dr. Matthew dictating a consult on this patient The patient was interviewed and examined by me IMPRESSION / ASSESSMENT: Cirrhosis of the liver Hepatocellular carcinoma Hepatic encephalopathy Troponins were sent in the ER because she was not feeling herself felt weak and fatigued and shaky No shortness of breath no nausea or vomiting according to the ER Twelve-lead ECG shows sinus rhythm right bundle branch block pattern with PVCs PLAN: 2-D echo and Doppler study to assess cardiac structure and function Continue spironolactone and torsemide Medical treatment and supportive care from a cardiac standpoint Maximize beta blockers Avoid aspirin and heparin HPI Patient presented to the hospital with weakness shaking and not feeling herself She denied any chest discomfort to me no shortness of breath and is lying flat comfortably in bed She had elevated ammonia level and was treated for this. She takes lactulose at home She has cirrhosis of liver and hepatocellular carcinoma ROS: No fever chills or rigors, no cough, phlegm or expectoration, no nausea, vomiting or diarrhea, no hematuria, dysuria, no musculoskeletal complaints, no strokes or seizures, no skin lesions. EXAMINATION: Patient resting comfortably in bed. Alert and oriented at this time denied any chest discomfort Afebrile 97.1F Pulse rate in the 50s Blood pressure 108/68 mmHg Breath sounds are reduced bilaterally no rhonchi no crackles Heart sounds. Breath sounds are clear REVIEW OF LABS, ECG & MEDICAL DATA Hemoglobin 11.0, white count 3.9 thousand Platelet count 63,000 Sodium 136, potassium 3.4, BUN 82 creatinine 1.17 Electrolytes That troponins 0.074, 0.08-0.073 Past Medical History Past Medical History: Cancer, Diabetes Mellitus, GERD/Reflux, Hypertension, Liver Disease, Myocardial Infarction ([place]), Renal Disease Additional Past Medical History / Comment(s): Pt recently admitted to [facility] on 01/31/19 with AMS/unresponsive likely d/t hepatic encephalopathy/elevated ammonia levels, elevated troponin thought non cardiac, UTI, urinary retention, acute on chronic kidney disease. Other Hx; Hepatocellular liver cancer with chemo immobilizations-last time being 2017, ascities with paracentesis's, nonalcoholic liver cirrhosis, pancytopenia, high ammonia levels, chronic elevated LFTs, stomach ulcer, diverticular disease with ileostomy, IDDM type II, iron anemia, CKD stage II., Last Myocardial Infarction Date:: unk History of Any Multi-Drug Resistant Organisms: MRSA Date of last positivie culture/infection: 12/30/18 MDRO Source:: MRSA URINE Past Surgical History: Appendectomy, Bowel Resection, Section, Cholecystectomy, Hysterectomy, Tonsillectomy Additional Past Surgical History / Comment(s): Chemo immobilizations, liver biopsies, paracentesis, bowel resection d/t diverticulitis/ileostomy, R rotator cuff repair, carpal tunnel release-laterality unknown. Past Anesthesia/Blood Transfusion Reactions: No Reported Reaction Smoking Status: Former smoker - Past Family History Mother History Unknown: Yes Family Medical History: Congestive Heart Failure (CHF) Medications and Allergies Home Medications Medication Instructions Recorded Confirmed Type Dicyclomine [Bentyl] 10 mg PO TID 10/23/18 02/20/19 History Omeprazole [PriLOSEC] 20 mg PO BID 10/23/18 02/20/19 History Sucralfate [Carafate] 1 gm PO QID 10/23/18 02/20/19 History Insulin Regular, Human [NovoLIN R] 10 unit SQ AC-TID 10/24/18 02/20/19 History Spironolactone [Aldactone] 50 mg PO BID 30 Days #60 tab 12/21/18 02/20/19 Rx buPROPion SR [Wellbutrin SR] 150 mg PO DAILY #30 tablet.er 12/21/18 02/20/19 Rx Magnesium Oxide [William] 500 mg PO DAILY 12/30/18 02/20/19 History Torsemide [Demadex] 20 mg PO DAILY 30 Days #30 tab 01/09/19 02/20/19 Rx Cholecalciferol [Vitamin D3] 4,000 unit PO DAILY 01/16/19 02/20/19 History Ferrous Sulfate [Iron (65 MG 325 mg PO BID 01/31/19 02/20/19 History Elemental)] Metoprolol Tartrate 12.5 mg PO DAILY 01/31/19 02/20/19 History Insulin NPH [humuLIN N] 18 unit SQ BID vial 02/06/19 02/20/19 Rx Lactulose [Cephulac] 30 gm PO BID ml 02/06/19 02/20/19 Rx Morphine Sulfate ER [Ms Contin] 15 mg PO Q12HR #6 tablet 02/06/19 02/20/19 Rx Rifaximin [Xifaxan] 550 mg PO BID tablet 02/06/19 02/20/19 Rx clonazePAM [KlonoPIN] 0.5 mg PO DAILY PRN #3 tab 02/06/19 02/20/19 Rx Allergies Allergy/AdvReac Type Severity Reaction Status Date / Time amlodipine Allergy Rash/Hives Verified 02/20/19 07:39 oxycodone Allergy Rash/Hives Verified 02/20/19 07:39 Penicillins Allergy Rash/Hives Verified 02/20/19 07:39 hydromorphone [From Dilaudid] AdvReac Mild tactile Verified 02/20/19 07:39 disturbance GREG Inhibitors AdvReac Cough Verified 02/20/19 07:39 sodium dodecyclbenzene Allergy Rash/Hives Uncoded 02/20/19 04:26 sulfonate Physical Exam Vitals: Vital Signs Temp Pulse Resp BP Pulse Ox 02/21/19 11:58 18 02/21/19 08:00 97.1 F L 56 L 18 108/68 99 02/21/19 04:00 98.3 F 52 L 17 105/43 96 02/21/19 00:00 98.4 F 54 L 18 95/58 100 02/20/19 20:00 98.3 F 64 17 104/51 100 02/20/19 16:00 98.5 F 72 16 92/56 100 Intake and Output 02/20/19 02/21/19 02/21/19 22:59 06:59 14:59 Intake Total 1460 560 240 Balance 1460 560 240 Intake: Intake, IV Titration 80 80 Amount Sodium Chloride 0.9% 1, 80 80 000 ml @ 20 mls/hr IV . Q24H [facility] Rx#:[id number] Oral 1380 480 240 Other: Voiding Method Toilet Toilet Toilet # Voids 1 2 1 # Bowel Movements 1 Weight 87 kg Results 02/21/19 06:33 02/21/19 06:33 Cardiac Enzymes 02/20/19 02/21/19 Range/Units 16:24 06:33 AST 45 H (14-36) U/L Troponin I 0.073 H* (0.000-0.034) ng/mL CBC 02/21/19 Range/Units 06:33 WBC 3.9 (3.8-10.6) k/uL RBC 3.27 L (3.80-5.40) m/uL Hgb 11.0 L (11.4-16.0) gm/dL Hct 32.9 L (34.0-46.0) % Plt Count 63 L (150-450) k/uL Comprehensive Metabolic Panel 02/21/19 Range/Units 06:33 Sodium 136 L (137-145) mmol/L Potassium 3.4 L (3.5-5.1) mmol/L Chloride 105 (98-107) mmol/L Carbon Dioxide 25 (22-30) mmol/L BUN 22 H (7-17) mg/dL Creatinine 1.17 H (0.52-1.04) mg/dL Glucose 152 H (74-99) mg/dL Calcium 8.2 L (8.4-10.2) mg/dL AST 45 H (14-36) U/L ALT 35 (9-52) U/L Alkaline Phosphatase 202 H (38-126) U/L Total Protein 5.6 L (6.3-8.2) g/dL Albumin 2.4 L (3.5-5.0) g/dL Current Medications Generic Name Dose Route Start Last Admin Trade Name Freq PRN Reason Stop Dose Admin Bupropion HCl 150 mg 02/20/19 09:00 02/21/19 10:21 Wellbutrin Sr PO 150 mg DAILY [facility] Administration Cholecalciferol 4,000 unit 02/20/19 09:00 02/21/19 10:21 Vitamin D3 PO 4,000 unit DAILY [facility] Administration Clonazepam 0.5 mg 02/20/19 08:48 Klonopin PO DAILY PRN Anxiety Dicyclomine HCl 10 mg 02/20/19 09:00 02/21/19 10:20 Bentyl PO 10 mg TID [facility]NY Administration Ferrous Sulfate 325 mg 02/20/19 09:00 02/21/19 10:21 Feosol PO 325 mg BID [facility]NY Administration Sodium Chloride 1,000 mls @ 20 mls/hr 02/20/19 07:00 02/21/19 07:22 Saline 0.9% IV 20 mls/hr .Q24H [facility] Administration Insulin Human NPH 18 unit 02/20/19 09:00 02/21/19 10:22 Humulin N SQ 18 unit BID [facility] Administration Insulin Human Regular 10 unit 02/20/19 12:30 02/21/19 10:22 Humulin R SQ 10 unit AC-TID [facility] Administration Lactulose 30 gm 02/20/19 21:00 02/21/19 10:23 Cephulac PO 30 gm BID [facility] Administration Magnesium Oxide 400 mg 02/20/19 09:00 02/21/19 10:20 Mag-Ox PO 400 mg DAILY [facility] Administration Metoprolol Tartrate 12.5 mg 02/20/19 09:00 02/21/19 10:21 Lopressor PO 12.5 mg DAILY [facility] Administration Morphine Sulfate 15 mg 02/20/19 09:00 02/21/19 10:20 Ms Contin PO 15 mg Q12HR [facility] Administration Naloxone HCl 0.2 mg 02/20/19 06:55 Narcan IV Q2M PRN Opioid Reversal Ondansetron HCl 4 mg 02/20/19 10:43 Zofran IVP Q6HR PRN Vomiting Pantoprazole Sodium 40 mg 02/21/19 07:30 02/21/19 07:23 Protonix PO 40 mg AC-BRKFST [facility] Administration Rifaximin 550 mg 02/20/19 09:00 02/21/19 10:20 Xifaxan PO 03/22/19 09:01 550 mg BID JENNY Administration Spironolactone 50 mg 02/20/19 09:00 02/21/19 10:21 Aldactone PO 50 mg BID [facility] Administration Sucralfate 1 gm 02/20/19 09:00 02/21/19 10:21 Carafate PO 1 gm QID [facility] Administration Torsemide 20 mg 02/20/19 09:00 02/21/19 10:21 Demadex PO 20 mg DAILY JENNY Administration Intake and Output 02/20/19 02/21/19 02/21/19 22:59 06:59 14:59 Intake Total 1460 560 240 Balance 1460 560 240 Intake: Intake, IV Titration 80 80 Amount Sodium Chloride 0.9% 1, 80 80 000 ml @ 20 mls/hr IV . Q24H [facility] Rx#:[id number] Oral 1380 480 240 Other: Voiding Method Toilet Toilet Toilet # Voids 1 2 1 # Bowel Movements 1 Weight 87 kg 02/21/19 06:33 02/21/19 06:33
--- NOTE | 2019-02-21 12:29 | P.PN ---
Subjective Progress Note Date: 02/21/19 This is a 73-year-old patient who presented with complaints of weakness and not feeling well. Patient reports that since last admission possibly 2 weeks ago patient was discharged to rehab. Patient reports she went home on Wednesday feeling improved. Over the week and became increasingly shaky and weak. P bobo was concerned about her ammonia level due to previous episodes of having high ammonia. Patient does report that she has been taking her lactulose and all medications as ordered. Patient has a past medical history of hepatocellular carcinoma status post chemo cessation, nonalcoholic liver ci rrhosis, diverticulitis with ileostomy placement, chronic abdominal pain due to recurring ascites, chronic kidney disease and previous UTI with MRSA. Chest x- ray completed in ER showing no evidence of acute cardiopulmonary abnormality. EKG completed showing sinus rhythm with frequent premature ventricular complexes in a pattern of bigeminy right bundle shirley block. Patient's ammonia on admission to 17. Patient also having slightly elevated troponin at 0.074. Cardiology and GI services consulted. Serial troponins ordered. Patient was given stat dose of lactulose in ER. Repeat ammonia level 139. At this time patient states she feels slightly improved. Patient denies chest pain or sh ortness of breath. Patient denies any nausea vomiting or diarrhea. Patient does complain of her chronic abdominal pain. Patient denies any burning with urination. On 02/21/2019 patient's alert and oriented 3. Patient is still complaining of her chronic abdominal pain. Patient's pneumonia has improved to 24. Awaiting cardiology consult. At that time patient denies any chest pain or shortness of breath. Patient denies nausea vomiting or diarrhea. Patient denies any urinary burning or frequency Objective - Vital Signs Vital signs: Vital Signs Temp 97.1 F L 02/21/19 08:00 Pulse 56 L 02/21/19 08:00 Resp 18 02/21/19 11:58 BP 108/68 02/21/19 08:00 Pulse Ox 99 02/21/19 08:00 Intake & Output 02/20/19 02/21/19 02/21/19 18:59 06:59 18:59 Intake Total 2059 560 240 Balance 2059 560 240 Weight 84.6 kg 87 kg Intake: Intake, IV Titration 80 80 Amount Sodium Chloride 0.9% 1, 80 80 000 ml @ 20 mls/hr IV . Q24H [facility] Rx#:[id number] Oral 1980 410 240 Other: Voiding Method Toilet Toilet # Voids 2 1 # Bowel Movements 1 - Exam Head normocephalic Neck supple Lungs clear to auscultation bilaterally no wheezing or crackles Heart regular rate and rhythm S1-S2, no rub or gallop Abdomen is soft nontender nondistended positive bowel sounds no hepatosplenomegaly. Right lower quadrant ostomy in place. Minimal ascites Extremities no edema Neuro alert and orientated to 3 - Labs CBC & Chem 7: 02/21/19 06:33 02/21/19 06:33 Labs: Abnormal Lab Results - Last 24 Hours (Table) 02/20/19 02/20/19 02/20/19 Range/Units 16:18 16:24 20:47 RBC (3.80-5.40) m/uL Hgb (11.4-16.0) gm/dL Hct (34.0-46.0) % MCV (80.0-100.0) fL RDW (11.5-15.5) % Plt Count (150-450) k/uL Lymphocytes # (1.0-4.8) k/uL Sodium (137-145) mmol/L Potassium (3.5-5.1) mmol/L BUN (7-17) mg/dL Creatinine (0.52-1.04) mg/dL Glucose (74-99) mg/dL POC Glucose (mg/dL) 182 H 262 H (75-99) mg/dL Calcium (8.4-10.2) mg/dL Total Bilirubin (0.2-1.3) mg/dL AST (14-36) U/L Alkaline Phosphatase (38-126) U/L Troponin I 0.073 H* (0.000-0.034) ng/mL Total Protein (6.3-8.2) g/dL Albumin (3.5-5.0) g/dL 02/21/19 02/21/19 02/21/19 Range/Units 05:43 06:33 06:33 RBC 3.27 L (3.80-5.40) m/uL Hgb 11.0 L (11.4-16.0) gm/dL Hct 32.9 L (34.0-46.0) % MCV 100.8 H (80.0-100.0) fL RDW 16.4 H (11.5-15.5) % Plt Count 63 L (150-450) k/uL Lymphocytes # 0.9 L (1.0-4.8) k/uL Sodium 136 L (137-145) mmol/L Potassium 3.4 L (3.5-5.1) mmol/L BUN 22 H (7-17) mg/dL Creatinine 1.17 H (0.52-1.04) mg/dL Glucose 152 H (74-99) mg/dL POC Glucose (mg/dL) 185 H (75-99) mg/dL Calcium 8.2 L (8.4-10.2) mg/dL Total Bilirubin 2.0 H (0.2-1.3) mg/dL AST 45 H (14-36) U/L Alkaline Phosphatase 202 H (38-126) U/L Troponin I (0.000-0.034) ng/mL Total Protein 5.6 L (6.3-8.2) g/dL Albumin 2.4 L (3.5-5.0) g/dL Microbiology - Last 24 Hours (Table) 02/20/19 05:06 Blood Culture - Preliminary Blood No Growth after 24 hours Assessment and Plan Assessment: 1. Increased weakness likely due to elevated ammonia level. Ammonia level CCXIII. 1 dose lactulose given. Recheck 139. Continue lactulose twice a day and Xifoxan. Ammonia level 24. Patient has been cleared for discharge 2. Elevated troponin. Initial troponin 0.074. Serial troponins ordered. Cardiology services consulted 3. Chronic kidney disease stage III. Creatinine improving to 1.2 to her previous admission to monitor 4. History of UTI. Patient was treated with Macrobid for 5 days on discharge from previous admission. Repeat UA has been ordered 5. History of hepatocellular carcinoma status post embolization in 2012, 2015 2018. 6. History of chronic abdominal pain due to recurring abdominal ascites. Home meds ordered 7. History of diverticulitis with ileostomy placement 8. History of nonalcoholic liver cirrhosis 9. History of pancytopenia due to known liver cancer secondary to chronic liver cirrhosis 10. Insulin-dependent diabetes mellitus. Hemoglobin A1c 5.5 on 01/04/2019. Home medications ordered 11. Iron deficiency anemia. Patient maintained on ferrous sulfate 12. History of depression 13. Chronic elevated LFTs due to chronic liver malignancy 14. Bradycardia. Heart rate in 40s when patient is sleeping. Cardiology serv ices have been consulted DVT prophylaxis SCDs due to pancytopenia. GI prophylaxis Protonix I performed an examination of the patient and discussed their management with the Nurse Practitioner. I have reviewed the Nurse Practitioner's notes and agree with the documented findings and plan of care
[2019-02-21 13:10] LABS: Glucose,Whole Blood 301 mg/dL (75-99)
[2019-02-21 17:08] LABS: Glucose,Whole Blood 202 mg/dL (75-99)
[2019-02-21 21:00] LABS: Glucose,Whole Blood 187 mg/dL (75-99)
[2019-02-22 05:58] LABS: Glucose,Whole Blood 155 mg/dL (75-99)
[2019-02-22 07:02] LABS: Anisocytosis Slight; Basophils % (A) 1 %; Eosinophils # (A) 0.2 k/uL (0-0.7); Eosinophils % (A) 5 %; HCT 31.8 % (34.0-46.0); Lymphocytes # (A) 1.1 k/uL (1.0-4.8); Lymphocytes % (A) 29 %; MCH 36.1 pg (25.0-35.0); MCHC 34.5 g/dL (31.0-37.0); MCV 104.7 fL (80.0-100.0); Macrocytosis Moderate; Mean Platelet Volume 9.4; Monocytes # (A) 0.3 k/uL (0-1.0); Monocytes % (A) 7 %; Neutrophils # (A) 2.2 k/uL (1.3-7.7); Neutrophils % (A) 56 %; RBC 3.04 m/uL (3.80-5.40); RDW 16.7 % (11.5-15.5); WBC 3.9 k/uL (3.8-10.6)
[2019-02-22 07:03] LABS: Platelet Count 64 k/uL (150-450)
[2019-02-22] MEDS: SODIUM CHLORIDE 0.9% 1,000 ML IV SCH ×2 (07:09→08:14)
[2019-02-22] MEDS: PANTOPRAZOLE 40 MG TABLET PO SCH (07:09)
[2019-02-22 07:13] LABS: Albumin 2.4 g/dL (3.5-5.0); Potassium 4.4 mmol/L (3.5-5.1); Total Bilirubin 1.5 mg/dL (0.2-1.3); Total Protein 5.7 g/dL (6.3-8.2)
[2019-02-22] MEDS: INSULIN REGULAR 100 UNIT/ML VIAL SQ SCH ×3 (07:30→18:13)
[2019-02-22] MEDS: FERROUS SULFATE 325 MG TAB PO SCH ×2 (10:03→21:07)
[2019-02-22] MEDS: TORSEMIDE 20 MG TAB PO SCH (10:03)
[2019-02-22] MEDS: CHOLECALCIFEROL 1,000 UNIT TAB PO SCH (10:03)
[2019-02-22] MEDS: buPROPion SR 150 MG TABLET.ER PO SCH (10:03)
[2019-02-22] MEDS: RIFAXIMIN 550 MG TABLET PO SCH ×2 (10:03→21:10)
[2019-02-22] MEDS: SPIRONOLACTONE 25 MG TAB PO SCH ×2 (10:04→21:06)
[2019-02-22] MEDS: SUCRALFATE 1 GM TAB PO SCH ×4 (10:04→21:07)
[2019-02-22] MEDS: LACTULOSE 20 GM/30 ML CUP PO SCH ×2 (10:04→21:07)
[2019-02-22] MEDS: MORPHINE SULFATE ER 15 MG TABLET PO SCH ×2 (10:04→21:07)
[2019-02-22] MEDS: DICYCLOMINE 10 MG CAP PO SCH ×3 (10:04→21:06)
[2019-02-22] MEDS: MAGNESIUM OXIDE 400 MG TAB PO SCH (10:04)
[2019-02-22] MEDS: INSULIN NPH 300 UNIT/3 ML VIAL SQ SCH ×2 (10:05→21:09)
[2019-02-22 12:10] LABS: Glucose,Whole Blood 143 mg/dL (75-99)
--- NOTE | 2019-02-22 12:28 | P.PN ---
Subjective Progress Note Date: 02/22/19 This is a 73-year-old patient who presented with complaints of weakness and not feeling well. Patient reports that since last admission possibly 2 weeks ago patient was discharged to rehab. Patient reports she went home on Wednesday feeling improved. Over the week and became increasingly shaky and weak. P bobo was concerned about her ammonia level due to previous episodes of having high ammonia. Patient does report that she has been taking her lactulose and all medications as ordered. Patient has a past medical history of hepatocellular carcinoma status post chemo cessation, nonalcoholic liver ci rrhosis, diverticulitis with ileostomy placement, chronic abdominal pain due to recurring ascites, chronic kidney disease and previous UTI with MRSA. Chest x- ray completed in ER showing no evidence of acute cardiopulmonary abnormality. EKG completed showing sinus rhythm with frequent premature ventricular complexes in a pattern of bigeminy right bundle shirley block. Patient's ammonia on admission to 17. Patient also having slightly elevated troponin at 0.074. Cardiology and GI services consulted. Serial troponins ordered. Patient was given stat dose of lactulose in ER. Repeat ammonia level 139. At this time patient states she feels slightly improved. Patient denies chest pain or sh ortness of breath. Patient denies any nausea vomiting or diarrhea. Patient does complain of her chronic abdominal pain. Patient denies any burning with urination. On 02/21/2019 patient's alert and oriented 3. Patient is still complaining of her chronic abdominal pain. Patient's pneumonia has improved to 24. Awaiting cardiology consult. At that time patient denies any chest pain or shortness of breath. Patient denies nausea vomiting or diarrhea. Patient denies any urinary burning or frequency On 02/22/2019 patient's alert and oriented 3. Patient today is complaining of some dizziness. Patient's heart rate does remain low. Cardiology services have been consulted 2-D echo has been ordered. Will order orthostatic pressures. This time patient denies chest pain or shortness breath. Patient denies nausea vomiting or diarrhea. Patient denies any urinary burning or frequency. Patient's ammonia level 42 Objective - Vital Signs Vital signs: Vital Signs Temp 98.7 F 02/22/19 08:00 Pulse 57 L 02/22/19 08:00 Resp 16 02/22/19 08:00 BP 93/53 02/22/19 08:00 Pulse Ox 99 02/22/19 08:27 Intake & Output 02/21/19 02/22/19 02/22/19 18:59 06:59 18:59 Intake Total 762 480 Output Total 200 Balance 762 -200 480 Weight 87.6 kg Intake: Oral 762 480 Output: Urine 200 Other: Voiding Method Toilet Toilet Toilet # Voids 3 2 - Exam Head normocephalic Neck supple Lungs clear to auscultation bilaterally no wheezing or crackles Heart regular rate and rhythm S1-S2, no rub or gallop Abdomen is soft nontender nondistended positive bowel sounds no hepatosplenomegaly. Right lower quadrant ostomy in place. Minimal ascites Extremities no edema Neuro alert and orientated to 3 - Labs CBC & Chem 7: 02/22/19 06:03 02/22/19 06:03 Labs: Abnormal Lab Results - Last 24 Hours (Table) 02/21/19 02/21/19 02/21/19 Range/Units 13:09 16:27 20:59 RBC (3.80-5.40) m/uL Hgb (11.4-16.0) gm/dL Hct (34.0-46.0) % MCV (80.0-100.0) fL MCH (25.0-35.0) pg RDW (11.5-15.5) % Plt Count (150-450) k/uL Chloride (98-107) mmol/L BUN (7-17) mg/dL Creatinine (0.52-1.04) mg/dL Glucose (74-99) mg/dL POC Glucose (mg/dL) 301 H 202 H 187 H (75-99) mg/dL Calcium (8.4-10.2) mg/dL Total Bilirubin (0.2-1.3) mg/dL AST (14-36) U/L Alkaline Phosphatase (38-126) U/L Ammonia (<30) umol/L Total Protein (6.3-8.2) g/dL Albumin (3.5-5.0) g/dL 02/22/19 02/22/19 02/22/19 Range/Units 05:56 06:03 06:03 RBC 3.04 L (3.80-5.40) m/uL Hgb 11.0 L (11.4-16.0) gm/dL Hct 31.8 L (34.0-46.0) % MCV 104.7 H (80.0-100.0) fL MCH 36.1 H (25.0-35.0) pg RDW 16.7 H (11.5-15.5) % Plt Count 64 L (150-450) k/uL Chloride 109 H (98-107) mmol/L BUN 19 H (7-17) mg/dL Creatinine 1.11 H (0.52-1.04) mg/dL Glucose 137 H (74-99) mg/dL POC Glucose (mg/dL) 155 H (75-99) mg/dL Calcium 8.0 L (8.4-10.2) mg/dL Total Bilirubin 1.5 H (0.2-1.3) mg/dL AST 55 H (14-36) U/L Alkaline Phosphatase 205 H (38-126) U/L Ammonia (<30) umol/L Total Protein 5.7 L (6.3-8.2) g/dL Albumin 2.4 L (3.5-5.0) g/dL 02/22/19 02/22/19 Range/Units 06:03 11:59 RBC (3.80-5.40) m/uL Hgb (11.4-16.0) gm/dL Hct (34.0-46.0) % MCV (80.0-100.0) fL MCH (25.0-35.0) pg RDW (11.5-15.5) % Plt Count (150-450) k/uL Chloride (98-107) mmol/L BUN (7-17) mg/dL Creatinine (0.52-1.04) mg/dL Glucose (74-99) mg/dL POC Glucose (mg/dL) 143 H (75-99) mg/dL Calcium (8.4-10.2) mg/dL Total Bilirubin (0.2-1.3) mg/dL AST (14-36) U/L Alkaline Phosphatase (38-126) U/L Ammonia 42 H (<30) umol/L Total Protein (6.3-8.2) g/dL Albumin (3.5-5.0) g/dL Microbiology - Last 24 Hours (Table) 02/21/19 20:00 Urine Culture - Preliminary Urine,Voided 02/20/19 05:06 Blood Culture - Preliminary Blood No Growth after 48 hours Assessment and Plan Assessment: 1. Increased weakness likely due to elevated ammonia level. 1 dose lactulose given. Recheck 139. Continue lactulose twice a day and Xifoxan. Ammonia level 24. Patient has been cleared for discharge 2. Elevated troponin. Initial troponin 0.074. Serial troponins ordered. Cardiology services consulted 3. Chronic kidney disease stage III. Creatinine improving to 1.2 to her previous admission to monitor 4. History of UTI. Patient was treated with Macrobid for 5 days on discharge from previous admission. Repeat UA has been ordered 5. History of hepatocellular carcinoma status post embolization in 2012, 2015 2018. 6. History of chronic abdominal pain due to recurring abdominal ascites. Home meds ordered 7. History of diverticulitis with ileostomy placement 8. History of nonalcoholic liver cirrhosis 9. History of pancytopenia due to known liver cancer secondary to chronic liver cirrhosis 10. Insulin-dependent diabetes mellitus. Hemoglobin A1c 5.5 on 01/04/2019. Home medications ordered 11. Iron deficiency anemia. Patient maintained on ferrous sulfate 12. History of depression 13. Chronic elevated LFTs due to chronic liver malignancy 14. Bradycardia. Heart rate in 40s when patient is sleeping. 2-D echo has been ordered. Cardiology services are following 15. Dizziness. Orthostatic blood pressures have been ordered. This could be from patient's bradycardia. Cardiology services are following 2-D echo ordered DVT prophylaxis SCDs due to pancytopenia. GI prophylaxis Protonix Patient planning to be DC'd back to [facility] I performed an examination of the patient and discussed their management with the Nurse Practitioner. I have reviewed the Nurse Practitioner's notes and agree with the documented findings and plan of care
[2019-02-22 17:00] LABS: Glucose,Whole Blood 266 mg/dL (75-99)
[2019-02-22 20:37] LABS: Glucose,Whole Blood 309 mg/dL (75-99)
[2019-02-23 05:55] LABS: Glucose,Whole Blood 118 mg/dL (75-99)
[2019-02-23] MEDS: INSULIN REGULAR 100 UNIT/ML VIAL SQ SCH ×3 (07:17→17:41)
[2019-02-23] MEDS: PANTOPRAZOLE 40 MG TABLET PO SCH (07:17)
[2019-02-23 07:35] LABS: Anisocytosis Slight; Basophils % (A) 1 %; Eosinophils # (A) 0.2 k/uL (0-0.7); Eosinophils % (A) 5 %; HCT 31.3 % (34.0-46.0); HGB 10.5 gm/dL (11.4-16.0); Lymphocytes # (A) 1.1 k/uL (1.0-4.8); Lymphocytes % (A) 29 %; MCH 35.1 pg (25.0-35.0); MCHC 33.7 g/dL (31.0-37.0); MCV 104.3 fL (80.0-100.0); Macrocytosis Moderate; Mean Platelet Volume 9.2; Monocytes # (A) 0.3 k/uL (0-1.0); Monocytes % (A) 8 %; Neutrophils # (A) 2.2 k/uL (1.3-7.7); Neutrophils % (A) 57 %; RDW 16.7 % (11.5-15.5)
[2019-02-23 07:37] LABS: Platelet Count 66 k/uL (150-450)
[2019-02-23 08:00] LABS: Albumin 2.3 g/dL (3.5-5.0); Calcium 8.1 mg/dL (8.4-10.2); Potassium 3.8 mmol/L (3.5-5.1); Total Bilirubin 1.1 mg/dL (0.2-1.3); Total Protein 5.4 g/dL (6.3-8.2)
[2019-02-23] MEDS: LACTULOSE 20 GM/30 ML CUP PO SCH ×2 (08:17→21:56)
[2019-02-23] MEDS: DICYCLOMINE 10 MG CAP PO SCH ×3 (08:18→21:48)
[2019-02-23] MEDS: FERROUS SULFATE 325 MG TAB PO SCH ×2 (08:18→21:48)
[2019-02-23] MEDS: SPIRONOLACTONE 25 MG TAB PO SCH ×2 (08:18→21:48)
[2019-02-23] MEDS: CHOLECALCIFEROL 1,000 UNIT TAB PO SCH (08:18)
[2019-02-23] MEDS: MAGNESIUM OXIDE 400 MG TAB PO SCH (08:19)
[2019-02-23] MEDS: SUCRALFATE 1 GM TAB PO SCH ×4 (08:19→21:48)
[2019-02-23] MEDS: RIFAXIMIN 550 MG TABLET PO SCH ×2 (08:19→22:09)
[2019-02-23] MEDS: buPROPion SR 150 MG TABLET.ER PO SCH (08:20)
[2019-02-23] MEDS: INSULIN NPH 300 UNIT/3 ML VIAL SQ SCH ×2 (08:20→21:49)
[2019-02-23] MEDS: TORSEMIDE 20 MG TAB PO SCH (08:20)
[2019-02-23 11:23] LABS: Glucose,Whole Blood 197 mg/dL (75-99)
--- NOTE | 2019-02-23 14:41 | P.DS ---
Providers Date of admission: 02/20/19 06:55 Expected date of discharge: 02/23/19 Attending physician: Artemio Lea Consults: 02/20/19 06:58 Consult Physician Routine Consulting Provider: Ernesto Morales Consult Reason/Comments: elevated troponin Do you want consulting provider notified?: Yes Primary care physician: Gilma Martinez [facility] Course: Discharge diagnosis 1. Increased weakness likely due to elevated ammonia level. 1 dose lactulose given. Recheck 139. Continue lactulose twice a day and Xifoxan. Ammonia level 24. Patient has been cleared for discharge 2. Elevated troponin. Patient was evaluated with cardiology services. Patient has been cleared for discharge 3. Chronic kidney disease stage III. Creatinine improving to 1.2 to her previous admission to monitor 4. History of UTI. Patient was treated with Macrobid for 5 days on discharge from previous admission 5. History of hepatocellular carcinoma status post embolization in 2012, 2015 2017. 6. History of chronic abdominal pain due to recurring abdominal ascites. Home meds ordered 7. History of diverticulitis with ileostomy placement 8. History of nonalcoholic liver cirrhosis 9. History of pancytopenia due to known liver cancer secondary to chronic liver cirrhosis 10. Insulin-dependent diabetes mellitus. Hemoglobin A1c 5.5 on 01/04/2019. Home medications ordered 11. Iron deficiency anemia. Patient maintained on ferrous sulfate 12. History of depression 13. Chronic elevated LFTs due to chronic liver malignancy 14. Bradycardia. Heart rate in 40s when patient is sleeping. 2-D echo has been ordered. Cardiology services are following. Metroprolol has been DC'd 15. Dizziness. Orthostatic blood pressures have been ordered. This could be from patient's bradycardia. Cardiology services are following 2-D echo ordered. Metroprolol has been DC'd per 16. Urinary tract infection. Urine culture growing gram-negative bacilli. Patient will be started on Macrobid for 7 days 7 days Hospital course This is a 73-year-old patient who presented with complaints of weakness and not feeling well. Patient reports that since last admission possibly 2 weeks ago patient was discharged to rehab. Patient reports she went home on Wednesday feeling improved. Over the week and became increasingly shaky and weak. P bobo was concerned about her ammonia level due to previous episodes of having high ammonia. Patient does report that she has been taking her lactulose and all medications as ordered. Patient has a past medical history of hepatocellular carcinoma status post chemo cessation, nonalcoholic liver cirrhosis, diverticulitis with ileostomy placement, chronic abdominal pain due to recurring ascites, chronic kidney disease and previous UTI with MRSA. Chest x-ray completed in ER showing no evidence of acute cardiopulmonary abnormality. EKG completed showing sinus rhythm with frequent premature ventricular complexes in a pattern of bigeminy right bundle shirley block. Patient's ammonia on admission to 17. Patient also having slightly elevated troponin at 0.074. Cardiology and GI services consulted. Serial troponins ordered. Patient was given stat dose of lactulose in ER. Repeat ammonia level 139. At this time patient states she feels slightly improved. Patient denies chest pain or sh ortness of breath. Patient denies any nausea vomiting or diarrhea. Patient does complain of her chronic abdominal pain. Patient denies any burning with urination. On 02/21/2019 patient's alert and oriented 3. Patient is still complaining of her chronic abdominal pain. Patient's pneumonia has improved to 24. Awaiting cardiology consult. At that time patient denies any chest pain or shortness of breath. Patient denies nausea vomiting or diarrhea. Patient denies any urinary burning or frequency On 02/22/2019 patient's alert and oriented 3. Patient today is complaining of some dizziness. Patient's heart rate does remain low. Cardiology services have been consulted 2-D echo has been ordered. Will order orthostatic pressures. This time patient denies chest pain or shortness breath. Patient denies nausea vomiting or diarrhea. Patient denies any urinary burning or frequency. Patient's ammonia level 42 On 02/23/2018 patient is alert and oriented 3. Patient Metroprolol have been DC'd per cardiology due to bradycardia. Patient has been cleared for discharge cardiology standpoint. Ammonia level 49. Patient will be DC'd home on lactulose twice a day and xifaxin. Patient's urine culture also growing gram- negative bacilli. Patient will be DC'd on Macrobid for 7 days. At this time patient denies chest pain or shortness breath. Patient denies nausea vomiting or diarrhea. Patient denies any urinary burning or frequency. Patient is being DC'd to [facility] I performed an examination of the patient and discussed their management with the Nurse Practitioner. I have reviewed the Nurse Practitioner's notes and agree with the documented findings and plan of care Patient Condition at Discharge: Stable Plan - Discharge Summary Discharge Rx Participant: No New Discharge Prescriptions: Continue Sucralfate [Carafate] 1 gm PO QID Omeprazole [PriLOSEC] 20 mg PO BID Dicyclomine [Bentyl] 10 mg PO TID Insulin Regular, Human [NovoLIN R] 10 unit SQ AC-TID buPROPion SR [Wellbutrin SR] 150 mg PO DAILY #30 tablet.er Spironolactone [Aldactone] 50 mg PO BID 30 Days #60 tab Magnesium Oxide [William] 500 mg PO DAILY Torsemide [Demadex] 20 mg PO DAILY 30 Days #30 tab Cholecalciferol [Vitamin D3] 4,000 unit PO DAILY Ferrous Sulfate [Iron (65 MG Elemental)] 325 mg PO BID Lactulose [Cephulac] 30 gm PO BID ml Insulin NPH [humuLIN N] 18 unit SQ BID vial Rifaximin [Xifaxan] 550 mg PO BID tablet clonazePAM [KlonoPIN] 0.5 mg PO DAILY PRN #3 tab PRN Reason: Anxiety Morphine Sulfate ER [Ms Contin] 15 mg PO Q12HR 3 Days #6 tablet Discontinued Metoprolol Tartrate 12.5 mg PO DAILY Discharge Medication List Dicyclomine [Bentyl] 10 mg PO TID 10/23/18 [History] Omeprazole [PriLOSEC] 20 mg PO BID 10/23/18 [History] Sucralfate [Carafate] 1 gm PO QID 10/23/18 [History] Insulin Regular, Human [NovoLIN R] 10 unit SQ AC-TID 10/24/18 [History] Spironolactone [Aldactone] 50 mg PO BID 30 Days #60 tab 12/21/18 [Rx] buPROPion SR [Wellbutrin SR] 150 mg PO DAILY #30 tablet.er 12/21/18 [Rx] Magnesium Oxide [William] 500 mg PO DAILY 12/30/18 [History] Torsemide [Demadex] 20 mg PO DAILY 30 Days #30 tab 01/09/19 [Rx] Cholecalciferol [Vitamin D3] 4,000 unit PO DAILY 01/16/19 [History] Ferrous Sulfate [Iron (65 MG Elemental)] 325 mg PO BID 01/31/19 [History] Insulin NPH [humuLIN N] 18 unit SQ BID vial 02/06/19 [Rx] Lactulose [Cephulac] 30 gm PO BID ml 02/06/19 [Rx] Rifaximin [Xifaxan] 550 mg PO BID tablet 02/06/19 [Rx] Morphine Sulfate ER [Ms Contin] 15 mg PO Q12HR 3 Days #6 tablet 02/23/19 [Rx] clonazePAM [KlonoPIN] 0.5 mg PO DAILY PRN #3 tab 02/23/19 [Rx] Follow up Appointment(s)/Referral(s): Gilma Martinez MD [Primary Care Provider] - 1-2 days Carley Valverde MD [STAFF PHYSICIAN] - 1 Week Cem Estrada MD [STAFF PHYSICIAN] - 1 Week Jai Matthew MD [STAFF PHYSICIAN] - 1 Week Ambulatory/Diagnostic Orders: Comprehensive Metabolic Panel [LAB.AMB] Time Frame: 3 Days, Location: None Selected Activity/Diet/Wound Care/Special Instructions: gela rolon Discharge Disposition: TRANSFER TO SNF/ECF
[2019-02-23 16:29] LABS: Glucose,Whole Blood 135 mg/dL (75-99)
[2019-02-23] MEDS: MORPHINE SULFATE ER 15 MG TABLET PO SCH ×2 (17:41→21:49)
[2019-02-23 20:28] LABS: Glucose,Whole Blood 332 mg/dL (75-99)
[2019-02-23 21:00] VITALS: RESP 16
[2019-02-23 21:39] LABS: Glucose,Whole Blood 391 mg/dL (75-99)
[2019-02-23] MEDS: NITROFURANTOIN MONOHYD/M-CRYST 100 MG CAP PO SCH (21:48)
[2019-02-23] MEDS: INSULIN ASPART (NovoLOG) 100 UNIT/ML VIAL SQ SCH (22:09)
[2019-02-24 02:56] LABS: Glucose,Whole Blood 124 mg/dL (75-99)
[2019-02-24 05:53] LABS: Glucose,Whole Blood 128 mg/dL (75-99)
[2019-02-24] MEDS: INSULIN ASPART (NovoLOG) 100 UNIT/ML VIAL SQ SCH ×2 (05:59→12:36)
[2019-02-24] MEDS: SODIUM CHLORIDE 0.9% 1,000 ML IV SCH (07:09)
[2019-02-24] MEDS: INSULIN REGULAR 100 UNIT/ML VIAL SQ SCH ×2 (07:20→12:37)
[2019-02-24] MEDS: PANTOPRAZOLE 40 MG TABLET PO SCH (07:20)
[2019-02-24 07:37] LABS: Anisocytosis Slight; Basophils % (A) 0 %; Eosinophils # (A) 0.2 k/uL (0-0.7); Eosinophils % (A) 5 %; HCT 33.6 % (34.0-46.0); HGB 10.9 gm/dL (11.4-16.0); Lymphocytes # (A) 1.2 k/uL (1.0-4.8); Lymphocytes % (A) 23 %; MCHC 32.5 g/dL (31.0-37.0); MCV 104.7 fL (80.0-100.0); Macrocytosis Moderate; Mean Platelet Volume 9.2; Monocytes # (A) 0.4 k/uL (0-1.0); Monocytes % (A) 7 %; Neutrophils # (A) 3.2 k/uL (1.3-7.7); Neutrophils % (A) 62 %; RBC 3.21 m/uL (3.80-5.40); WBC 5.2 k/uL (3.8-10.6)
[2019-02-24 07:41] LABS: Albumin 2.5 g/dL (3.5-5.0); Calcium 8.2 mg/dL (8.4-10.2); Potassium 3.8 mmol/L (3.5-5.1); Total Bilirubin 1.7 mg/dL (0.2-1.3); Total Protein 5.6 g/dL (6.3-8.2)
[2019-02-24 07:46] LABS: Platelet Count 67 k/uL (150-450)
[2019-02-24] MEDS: CHOLECALCIFEROL 1,000 UNIT TAB PO SCH (08:56)
[2019-02-24] MEDS: LACTULOSE 20 GM/30 ML CUP PO SCH (08:56)
[2019-02-24] MEDS: SUCRALFATE 1 GM TAB PO SCH ×2 (08:57→12:36)
[2019-02-24] MEDS: MORPHINE SULFATE ER 15 MG TABLET PO SCH (08:57)
[2019-02-24] MEDS: RIFAXIMIN 550 MG TABLET PO SCH (08:58)
[2019-02-24] MEDS: TORSEMIDE 20 MG TAB PO SCH (08:58)
[2019-02-24] MEDS: DICYCLOMINE 10 MG CAP PO SCH (08:58)
[2019-02-24] MEDS: FERROUS SULFATE 325 MG TAB PO SCH (08:58)
[2019-02-24] MEDS: MAGNESIUM OXIDE 400 MG TAB PO SCH (08:58)
[2019-02-24] MEDS: NITROFURANTOIN MONOHYD/M-CRYST 100 MG CAP PO SCH (08:58)
[2019-02-24] MEDS: INSULIN NPH 300 UNIT/3 ML VIAL SQ SCH (08:58)
[2019-02-24] MEDS: buPROPion SR 150 MG TABLET.ER PO SCH (08:58)
[2019-02-24] MEDS: SPIRONOLACTONE 25 MG TAB PO SCH (08:59)
[2019-02-24 09:08] VITALS: BP 103/58; PULSE 63; TEMP 98.2
--- NOTE | 2019-02-24 11:44 | ECHOF ---
Referral Reason:elevated troponin Bradycardia MEASUREMENTS -------- HEIGHT: 175.3 cm WEIGHT: 86.6 kg BP: RVIDd: 2.8 cm (< 3.3) IVSd: 1.3 cm (0.6 - 1.1) LVIDd: 5.3 cm (3.9 - 5.3) LVPWd: 1.2 cm (0.6 - 1.1) IVSs: 1.7 cm LVIDs: 4.2 cm LVPWs: 1.1 cm LA Diam: 4.6 cm (2.7 - 3.8) LAESV Index (A-L): 31.66 ml/m Ao Diam: 3.2 cm (2.0 - 3.7) LA Diam: 4.0 cm (2.7 - 3.8) MV E Delroy: 0.63 m/s MV DecT: 456 ms MV A Delroy: 0.87 m/s MV E/A Ratio: 0.72 AV maxP.27 mmHg AV meanP.39 mmHg RAP: 5.00 mmHg RVSP: 27.35 mmHg FINDINGS -------- Sinus rhythm. This was a technically adequate study. The left ventricular size is normal. There is mild concentric left ventricular hypertrophy. Overa ll left ventricular systolic function is mildly impaired with, an EF between 45 - 50 %. Posterior h ypokinesis The right ventricle is normal in size. LA is midly dilated 29-33ml/m2. The right atrial size is normal. There is moderate aortic stenosis present. Peak/mean gradient across the Aortic Valve is 37.27mmHg / 20.39mmHg. Can't exclude possible Bicuspid Aov. Mild mitral annular calcification present. Mild mitral regurgitation is present. Mild tricuspid regurgitation present. There is no evidence of pulmonary hypertension. The right v entricular systolic pressure, as measured by Doppler, is 27.35mmHg. There is no pulmonic regurgitation present. The aortic root size is normal. There is no pericardial effusion. CONCLUSIONS -------- 1. The left ventricular size is normal. 2. There is mild concentric left ventricular hypertrophy. 3. Overall left ventricular systolic function is mildly impaired with, an EF between 45 - 50 %. 4. Posterior hypokinesis 5. The right ventricle is normal in size. 6. LA is midly dilated 29-33ml/m2. 7. The right atrial size is normal. 8. There is moderate aortic stenosis present. 9. Peak/mean gradient across the Aortic Valve is 37.27mmHg / 20.39mmHg. 10. Can't exclude possible Bicuspid Aov. 11. Mild mitral annular calcification present. 12. Mild mitral regurgitation is present. 13. Mild tricuspid regurgitation present. 14. There is no evidence of pulmonary hypertension. 15. The right ventricular systolic pressure, as measured by Doppler, is 27.35mmHg. 16. There is no pulmonic regurgitation present. 17. The aortic root size is normal. 18. There is no pericardial effusion. DATA CENTER TECHNICIAN: Sonam Humphreys RDCS
[2019-02-24 11:45] LABS: Glucose,Whole Blood 254 mg/dL (75-99)
== END 2019-02-24 16:34 | disposition home health service (06) | DRG 442 ==
LOC: EC 04:16 → 3SCARD 06:55
PROVIDERS: ADMIT Internal Medicine; ATTEND Internal Medicine
DX: K72.90 Hepatic failure, unspecified without coma (principal); N39.0 Urinary tract infection, site not specified; D61.818 Other pancytopenia; R18.8 Other ascites; K76.6 Portal hypertension; E11.22 Type 2 diabetes mellitus with diabetic chronic kidney disease; K74.60 Unspecified cirrhosis of liver; R77.8 Other specified abnormalities of plasma proteins; I12.9 Hypertensive chronic kidney disease with stage 1 through stage 4 chronic kidney disease, or unspecified chronic kidney disease; B96.20 Unspecified Escherichia coli [E. coli] as the cause of diseases classified elsewhere; I45.10 Unspecified right bundle-branch block; I49.3 Ventricular premature depolarization; K21.9 Gastro-esophageal reflux disease without esophagitis; N18.3 Chronic kidney disease, stage 3 (moderate); Z90.710 Acquired absence of both cervix and uterus; Z79.899 Other long term (current) drug therapy; Z79.4 Long term (current) use of insulin; Z86.14 Personal history of Methicillin resistant Staphylococcus aureus infection; Z87.891 Personal history of nicotine dependence; Z85.05 Personal history of malignant neoplasm of liver; Z93.2 Ileostomy status; Z92.21 Personal history of antineoplastic chemotherapy; I25.2 Old myocardial infarction; Z87.440 Personal history of urinary (tract) infections; Z87.11 Personal history of peptic ulcer disease; Z82.49 Family history of ischemic heart disease and other diseases of the circulatory system; Z88.5 Allergy status to narcotic agent; Z88.0 Allergy status to penicillin; Z88.8 Allergy status to other drugs, medicaments and biological substances
CPT/HCPCS: 36415; 71046; 80053; 81001; 82140; 83605; 83735; 84132; 84443; 84484; 85025; 85610; 85730; 87040; 87077; 87086; 87186; 93005; 93306; 94760; 96374; 99285

== ENCOUNTER 2019-03-02 17:36 | Inpatient (IN) | payer MEDICARE ==
[2019-03-02] MEDS ORDERED: SODIUM CHLORIDE 0.9% 1,000 ML IV STA (17:41)
--- NOTE | 2019-03-02 17:43 | ED ---
Arrhythmia/Palpitations HPI - General Stated Complaint: Palpitations Time Seen by Provider: 03/02/19 17:40 Source: RN notes reviewed, old records reviewed - History of Present Illness Initial Comments: This is a 73-year-old female the ER for evaluation. Presents today for evaluation regards to palpitations, heart racing. Feels lightheaded dizzy and weak. Per EMS patient was having runs of bigeminy prolonged and sugar tachyc ardia that was symptomatic. Patient had no syncopal event. No chest pain. MD Complaint: rapid heart beat, "heart racing", palpitations -: hour(s) (3) Context: occurred during rest Associated Symptoms: anxiety, paresthesias, other (palpitations) - Related Data Home Medications Medication Instructions Recorded Confirmed Dicyclomine [Bentyl] 10 mg PO TID 10/23/18 03/02/19 Omeprazole [PriLOSEC] 20 mg PO BID 10/23/18 03/02/19 Sucralfate [Carafate] 1 gm PO QID 10/23/18 03/02/19 Insulin Regular, Human [NovoLIN R] 10 unit SQ AC-TID 10/24/18 03/02/19 Magnesium Oxide [William] 500 mg PO DAILY 12/30/18 03/02/19 Cholecalciferol [Vitamin D3] 4,000 unit PO DAILY 01/16/19 03/02/19 Ferrous Sulfate [Iron (65 MG 325 mg PO BID 01/31/19 03/02/19 Elemental)] Previous Rx's Medication Instructions Recorded Spironolactone [Aldactone] 50 mg PO BID 30 Days #60 tab 12/21/18 buPROPion SR [Wellbutrin SR] 150 mg PO DAILY #30 tablet.er 12/21/18 Torsemide [Demadex] 20 mg PO DAILY 30 Days #30 tab 01/09/19 Insulin NPH [humuLIN N] 18 unit SQ BID vial 02/06/19 Lactulose [Cephulac] 30 gm PO BID ml 02/06/19 Rifaximin [Xifaxan] 550 mg PO BID tablet 02/06/19 Morphine Sulfate ER [Ms Contin] 15 mg PO Q12HR 3 Days #6 tablet 02/23/19 clonazePAM [KlonoPIN] 0.5 mg PO DAILY PRN #3 tab 02/23/19 Nitrofurantoin Monohyd/M-Cryst 100 mg PO BID #14 cap 02/24/19 [Macrobid] Allergies Allergy/AdvReac Type Severity Reaction Status Date / Time amlodipine Allergy Rash/Hives Verified 03/02/19 18:12 oxycodone Allergy Rash/Hives Verified 03/02/19 18:12 Penicillins Allergy Rash/Hives Verified 03/02/19 18:12 hydromorphone [From Dilaudid] AdvReac Mild tactile Verified 03/02/19 18:12 disturbance GREG Inhibitors AdvReac Cough Verified 03/02/19 18:12 sodium dodecyclbenzene Allergy Rash/Hives Uncoded 02/20/19 04:26 sulfonate Review of Systems ROS Statement: Those systems with pertinent positive or pertinent negative responses have been documented in the HPI. ROS Other: All systems not noted in ROS Statement are negative. Past Medical History Past Medical History: Cancer, Diabetes Mellitus, GERD/Reflux, Hypertension, Liver Disease, Myocardial Infarction (ND), Renal Disease Additional Past Medical History / Comment(s): Pt recently admitted to [facility] on 01/31/19 with AMS/unresponsive likely d/t hepatic encephalopathy/elevated ammonia levels, elevated troponin thought non cardiac, UTI, urinary retention, acute on chronic kidney disease. Other Hx; Hepatocellular liver cancer with chemo immobilizations-last time being 2017, ascities with paracentesis's, nonalcoholic liver cirrhosis, pancytopenia, high ammonia levels, chronic elevated LFTs, stomach ulcer, diverticular disease with ileostomy, IDDM type II, iron anemia, CKD stage II., Last Myocardial Infarction Date:: unk History of Any Multi-Drug Resistant Organisms: MRSA Date of last positivie culture/infection: 12/30/18 MDRO Source:: MRSA URINE Past Surgical History: Appendectomy, Bowel Resection, Section, Cholecystectomy, Hysterectomy, Tonsillectomy Additional Past Surgical History / Comment(s): Chemo immobilizations, liver biopsies, paracentesis, bowel resection d/t diverticulitis/ileostomy, R rotator cuff repair, carpal tunnel release-laterality unknown. Past Anesthesia/Blood Transfusion Reactions: No Reported Reaction Smoking Status: Former smoker - Past Family History Mother History Unknown: Yes Family Medical History: Congestive Heart Failure (CHF) General Exam General appearance: alert, in no apparent distress Head exam: Present: atraumatic, normocephalic, normal inspection Eye exam: Present: normal appearance, PERRL, EOMI. Absent: scleral icterus, conjunctival injection, periorbital swelling ENT exam: Present: normal exam, mucous membranes moist Neck exam: Present: normal inspection. Absent: tenderness, meningismus, lymphadenopathy Respiratory exam: Present: normal lung sounds bilaterally. Absent: respiratory distress, wheezes, rales, rhonchi, stridor Cardiovascular Exam: Present: regular rate, normal rhythm, normal heart sounds. Absent: systolic murmur, diastolic murmur, rubs, gallop, clicks GI/Abdominal exam: Present: soft, normal bowel sounds. Absent: distended, tenderness, guarding, rebound, rigid Extremities exam: Present: normal inspection, full ROM, normal capillary refill. Absent: tenderness, pedal edema, joint swelling, calf tenderness Back exam: Present: normal inspection Neurological exam: Present: alert, oriented X3, CN II-XII intact Psychiatric exam: Present: normal affect, normal mood Skin exam: Present: warm, dry, intact, normal color. Absent: rash Course Vital Signs 03/02/19 03/02/19 03/02/19 17:40 18:59 19:59 Temperature 98.4 F Pulse Rate 78 72 70 Respiratory 18 20 20 Rate Blood Pressure 135/103 111/58 107/62 O2 Sat by Pulse 100 99 99 Oximetry - Reevaluation(s) Reevaluation #1: 03/02/19 18:13 Medical record reviewed Reevaluation #2: 03/02/19 18:13 EMS notes are reviewed including 67 be run of ventricular tachycardia EKG Findings - EKG Comments: EKG Findings:: EKG shows sinus rhythm rate of 76, MS 160, QRS 1:30, QTc 526 Medical Decision Making - Medical Decision Making 73 female the admitted for evaluation by cardiology regarding ventricular tachycardia - Lab Data Result diagrams: 03/02/19 18:11 03/02/19 18:11 Lab Results 03/02/19 03/02/19 03/02/19 Range/Units 18:11 18:11 18:11 WBC 5.4 (3.8-10.6) k/uL RBC 3.54 L (3.80-5.40) m/uL Hgb 12.4 (11.4-16.0) gm/dL Hct 36.5 (34.0-46.0) % MCV 103.1 H (80.0-100.0) fL MCH 35.1 H (25.0-35.0) pg MCHC 34.0 (31.0-37.0) g/dL RDW 16.2 H (11.5-15.5) % Plt Count 65 L (150-450) k/uL Neutrophils % 66 % Lymphocytes % 20 % Monocytes % 9 % Eosinophils % 3 % Basophils % 1 % Neutrophils # 3.6 (1.3-7.7) k/uL Lymphocytes # 1.1 (1.0-4.8) k/uL Monocytes # 0.5 (0-1.0) k/uL Eosinophils # 0.1 (0-0.7) k/uL Basophils # 0.0 (0-0.2) k/uL Anisocytosis Slight Macrocytosis Moderate PT (9.0-12.0) sec INR (<1.2) APTT (22.0-30.0) sec Sodium 134 L (137-145) mmol/L Potassium 3.6 (3.5-5.1) mmol/L Chloride 102 (98-107) mmol/L Carbon Dioxide 25 (22-30) mmol/L Anion Gap 7 mmol/L BUN 24 H (7-17) mg/dL Creatinine 1.33 H (0.52-1.04) mg/dL Est GFR (CKD-EPI)AfAm 46 (>60 ml/min/1.73 sqM) Est GFR (CKD-EPI)NonAf 40 (>60 ml/min/1.73 sqM) Glucose 218 H (74-99) mg/dL Calcium 8.7 (8.4-10.2) mg/dL Phosphorus 3.5 (2.5-4.5) mg/dL Magnesium 1.8 (1.6-2.3) mg/dL Total Bilirubin 2.2 H (0.2-1.3) mg/dL AST 62 H (14-36) U/L ALT 38 (9-52) U/L Alkaline Phosphatase 260 H (38-126) U/L Ammonia 62 H (<30) umol/L Troponin I (0.000-0.034) ng/mL Total Protein 6.6 (6.3-8.2) g/dL Albumin 3.1 L (3.5-5.0) g/dL Lipase 32 (23-300) U/L TSH 1.010 (0.465-4.680) mIU/L 03/02/19 03/02/19 Range/Units 18:11 18:11 WBC (3.8-10.6) k/uL RBC (3.80-5.40) m/uL Hgb (11.4-16.0) gm/dL Hct (34.0-46.0) % MCV (80.0-100.0) fL MCH (25.0-35.0) pg MCHC (31.0-37.0) g/dL RDW (11.5-15.5) % Plt Count (150-450) k/uL Neutrophils % % Lymphocytes % % Monocytes % % Eosinophils % % Basophils % % Neutrophils # (1.3-7.7) k/uL Lymphocytes # (1.0-4.8) k/uL Monocytes # (0-1.0) k/uL Eosinophils # (0-0.7) k/uL Basophils # (0-0.2) k/uL Anisocytosis Macrocytosis PT 13.5 H (9.0-12.0) sec INR 1.3 H (<1.2) APTT 22.1 (22.0-30.0) sec Sodium (137-145) mmol/L Potassium (3.5-5.1) mmol/L Chloride (98-107) mmol/L Carbon Dioxide (22-30) mmol/L Anion Gap mmol/L BUN (7-17) mg/dL Creatinine (0.52-1.04) mg/dL Est GFR (CKD-EPI)AfAm (>60 ml/min/1.73 sqM) Est GFR (CKD-EPI)NonAf (>60 ml/min/1.73 sqM) Glucose (74-99) mg/dL Calcium (8.4-10.2) mg/dL Phosphorus (2.5-4.5) mg/dL Magnesium (1.6-2.3) mg/dL Total Bilirubin (0.2-1.3) mg/dL AST (14-36) U/L ALT (9-52) U/L Alkaline Phosphatase (38-126) U/L Ammonia (<30) umol/L Troponin I 0.102 H* (0.000-0.034) ng/mL Total Protein (6.3-8.2) g/dL Albumin (3.5-5.0) g/dL Lipase (23-300) U/L TSH (0.465-4.680) mIU/L Critical Care Time Critical Care Time: Yes Total Critical Care Time: 31 Disposition Clinical Impression: Ventricular tachycardia Disposition: ADMITTED IP TO THIS HOSP Condition: Fair Is patient prescribed a controlled substance at d/c from ED?: No Referrals: Gilma Martinez MD [Primary Care Provider] - 1-2 days
[2019-03-02 18:43] LABS: Anisocytosis Slight; Basophils % (A) 1 %; Eosinophils # (A) 0.1 k/uL (0-0.7); Eosinophils % (A) 3 %; HCT 36.5 % (34.0-46.0); HGB 12.4 gm/dL (11.4-16.0); Lymphocytes # (A) 1.1 k/uL (1.0-4.8); Lymphocytes % (A) 20 %; MCH 35.1 pg (25.0-35.0); MCV 103.1 fL (80.0-100.0); Macrocytosis Moderate; Mean Platelet Volume 9.9; Monocytes # (A) 0.5 k/uL (0-1.0); Monocytes % (A) 9 %; Neutrophils # (A) 3.6 k/uL (1.3-7.7); Neutrophils % (A) 66 %; RBC 3.54 m/uL (3.80-5.40); RDW 16.2 % (11.5-15.5); WBC 5.4 k/uL (3.8-10.6)
[2019-03-02 18:45] LABS: Platelet Count 65 k/uL (150-450)
[2019-03-02 18:47] LABS: Albumin 3.1 g/dL (3.5-5.0); Calcium 8.7 mg/dL (8.4-10.2); Magnesium 1.8 mg/dL (1.6-2.3); Phosphorus 3.5 mg/dL (2.5-4.5); Potassium 3.6 mmol/L (3.5-5.1); Total Bilirubin 2.2 mg/dL (0.2-1.3); Total Protein 6.6 g/dL (6.3-8.2)
[2019-03-02 18:52] LABS: INR 1.3 (<1.2); Partial Thromboplastin Time 22.1 sec (22.0-30.0); Prothrombin Time 13.5 sec (9.0-12.0)
[2019-03-02] MEDS ORDERED: NITROGLYCERIN SL TABS 0.4 MG TAB SUBLINGUAL PRN (20:10)
[2019-03-02] MEDS ORDERED: ASPIRIN 81 MG PO STA (20:10)
[2019-03-02] MEDS: SODIUM CHLORIDE 0.9% 1,000 ML IV SCH (20:21)
[2019-03-02] MEDS ORDERED: ONDANSETRON 4 MG/2 ML VIAL IVP STA (20:26)
[2019-03-02 20:31] LABS: Appearance,Urine Clear (Clear); Bacteria,Urine Many /hpf; Bilirubin,Urine Negative (Negative); Blood,Urine Negative (Negative); Color,Urine Yellow; Glucose,Urine (UA) Negative (Negative); Hyaline Casts,Urine 12 /lpf (0-2); Ketones,Urine Negative (Negative); Leukocyte Esterase,Urine Negative (Negative); Mucus,Urine Rare /hpf; Nitrite,Urine Positive (Negative); Protein,Urine Negative (Negative); RBC,Urine <1 /hpf (0-5); Specific Gravity,Urine 1.011 (1.001-1.035); Squamous Epithelial Cell,Urine 1 /hpf (0-4); Urobilinogen,Urine <2.0 mg/dL (<2.0); WBC,Urine 5 /hpf (0-5)
[2019-03-02] MEDS ORDERED: METOPROLOL TARTRATE 50 MG TAB PO SCH (21:00)
[2019-03-02 22:19] LABS: Glucose,Whole Blood 235 mg/dL (75-99)
[2019-03-02] MEDS: ONDANSETRON 4 MG/2 ML VIAL IVP PRN (23:27)
[2019-03-02] MEDS: MORPHINE SULFATE ER 15 MG TABLET PO SCH (23:28)
[2019-03-03] MEDS: INSULIN ASPART (NovoLOG) 100 UNIT/ML VIAL SQ SCH ×5 (02:42→20:17)
[2019-03-03 02:51] LABS: Glucose,Whole Blood 162 mg/dL (75-99)
[2019-03-03 05:40] LABS: Basophils % (A) 1 %; Eosinophils # (A) 0.1 k/uL (0-0.7); Eosinophils % (A) 3 %; HGB 11.5 gm/dL (11.4-16.0); Lymphocytes % (A) 22 %; MCH 34.1 pg (25.0-35.0); MCHC 32.8 g/dL (31.0-37.0); MCV 104.2 fL (80.0-100.0); Macrocytosis Moderate; Monocytes # (A) 0.4 k/uL (0-1.0); Monocytes % (A) 9 %; Neutrophils # (A) 2.8 k/uL (1.3-7.7); Neutrophils % (A) 63 %; RBC 3.36 m/uL (3.80-5.40); RDW 15.5 % (11.5-15.5); WBC 4.4 k/uL (3.8-10.6)
[2019-03-03 05:56] LABS: Albumin 2.5 g/dL (3.5-5.0); Calcium 8.2 mg/dL (8.4-10.2); Potassium 3.6 mmol/L (3.5-5.1); Total Bilirubin 1.6 mg/dL (0.2-1.3); Total Protein 5.7 g/dL (6.3-8.2)
[2019-03-03 06:29] LABS: Platelet Count 60 k/uL (150-450)
[2019-03-03 06:30] LABS: Large Platelets Present
[2019-03-03] MEDS: SODIUM CHLORIDE 0.9% 1,000 ML IV SCH ×2 (06:50→16:57)
[2019-03-03 07:08] LABS: Glucose,Whole Blood 94 mg/dL (75-99)
[2019-03-03] MEDS: MORPHINE SULFATE ER 15 MG TABLET PO SCH ×2 (08:59→20:15)
[2019-03-03] MEDS: LACTULOSE 20 GM/30 ML CUP PO SCH ×2 (08:59→20:14)
[2019-03-03] MEDS: buPROPion SR 150 MG TABLET.ER PO SCH (08:59)
[2019-03-03] MEDS ORDERED: ASPIRIN 325 MG TAB PO SCH (09:00)
--- NOTE | 2019-03-03 09:49 | P.HPIM ---
History of Present Illness H&P Date: 03/03/19 This is a 73-year-old female patient of Dr. Kurtz. Patient presented to the hospital with complaints of palpitations. Patient reports she was at home when she felt that her heart was"thumping." EKG completed in ER showing sinus rhythm with frequent premature ventricular complexes in a pattern of bigeminy right bundle branch block moderate voltage criteria for LVH may be normal variant. Patient also had mildly elevated. Patient does have a past medical history of chronic kidney disease stage III, hepatocellular carcinoma, chronic abdominal pain, diverticulitis with ileostomy placement, nonalcohol liver cirrhosis, pancytopenia, insulin-dependent diabetes mellitus, iron deficiency anemia depression, chronic elevated LFTs. During last visit patient had episode of bradycardia. At that time Metroprolol was discontinued. Patient also was discharged 1 week ago and was treated for a urinary tract infection with Macrobid. 2-D echo was completed on 02/21/2019 showing an EF of 45-50%. She was given metoprolol 50 mg in ER. Heart rate now in the 40s. Cardiology services have been consulted. At this time patient is resting comfortably in bed. Patient is still complaining of occasional chest discomfort. Patient denies shortness of breath. Patient denies nausea vomiting or diarrhea. Patient denies any urinary burning or frequency. Review of Systems Please refer to HPI otherwise unremarkable Past Medical History Past Medical History: Cancer, Diabetes Mellitus, GERD/Reflux, Hypertension, Liver Disease, Myocardial Infarction (PR), Renal Disease Additional Past Medical History / Comment(s): Pt recently admitted to [facility] on 01/31/19 with AMS/unresponsive likely d/t hepatic encephalopathy/elevated ammonia levels, elevated troponin thought non cardiac, UTI, urinary retention, acute on chronic kidney disease. Other Hx; Hepatocellular liver cancer with chemo immobilizations-last time being 2017, ascities with paracentesis's, nonalcoholic liver cirrhosis, pancytopenia, high ammonia levels, chronic elevated LFTs, stomach ulcer, diverticular disease with ileostomy, IDDM type II, iron anemia, CKD stage II., Last Myocardial Infarction Date:: unk History of Any Multi-Drug Resistant Organisms: MRSA Date of last positivie culture/infection: 12/30/18 MDRO Source:: MRSA URINE Past Surgical History: Appendectomy, Bowel Resection, Section, Cholecystectomy, Hysterectomy, Tonsillectomy Additional Past Surgical History / Comment(s): Chemo immobilizations, liver biopsies, paracentesis, bowel resection d/t diverticulitis/ileostomy, R rotator cuff repair, carpal tunnel release-laterality unknown. Past Anesthesia/Blood Transfusion Reactions: No Reported Reaction Past Psychological History: Anxiety, Depression Additional Psychological History / Comment(s): Pt resides with her son and daughter in law and grandchildren. She ambulates with a walker. She is receiving [facility]. 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 Reformed smoker. . Retired. No experience. No animal exposures Smoking Status: Former smoker Past Alcohol Use History: None Reported Additional Past Alcohol Use History / Comment(s): started smoking 1962 and quit 1965 Past Drug Use History: None Reported - Past Family History Mother History Unknown: Yes Family Medical History: Congestive Heart Failure (CHF) Medications and Allergies Home Medications Medication Instructions Recorded Confirmed Type Dicyclomine [Bentyl] 10 mg PO TID 10/23/18 03/02/19 History Omeprazole [PriLOSEC] 20 mg PO BID 10/23/18 03/02/19 History Sucralfate [Carafate] 1 gm PO QID 10/23/18 03/02/19 History Insulin Regular, Human [NovoLIN R] 10 unit SQ AC-TID 10/24/18 03/02/19 History Spironolactone [Aldactone] 50 mg PO BID 30 Days #60 tab 12/21/18 03/02/19 Rx buPROPion SR [Wellbutrin SR] 150 mg PO DAILY #30 tablet.er 12/21/18 03/02/19 Rx Magnesium Oxide [William] 500 mg PO DAILY 12/30/18 03/02/19 History Torsemide [Demadex] 20 mg PO DAILY 30 Days #30 tab 01/09/19 03/02/19 Rx Cholecalciferol [Vitamin D3] 4,000 unit PO DAILY 01/16/19 03/02/19 History Ferrous Sulfate [Iron (65 MG 325 mg PO BID 01/31/19 03/02/19 History Elemental)] Insulin NPH [humuLIN N] 18 unit SQ BID vial 02/06/19 03/02/19 Rx Lactulose [Cephulac] 30 gm PO BID ml 02/06/19 03/02/19 Rx Rifaximin [Xifaxan] 550 mg PO BID tablet 02/06/19 03/02/19 Rx Morphine Sulfate ER [Ms Contin] 15 mg PO Q12HR 3 Days #6 tablet 02/23/19 03/02/19 Rx clonazePAM [KlonoPIN] 0.5 mg PO DAILY PRN #3 tab 02/23/19 03/02/19 Rx Nitrofurantoin Monohyd/M-Cryst 100 mg PO BID #14 cap 02/24/19 03/02/19 Rx [Macrobid] Allergies Allergy/AdvReac Type Severity Reaction Status Date / Time amlodipine Allergy Rash/Hives Verified 03/02/19 18:12 oxycodone Allergy Rash/Hives Verified 03/02/19 18:12 Penicillins Allergy Rash/Hives Verified 03/02/19 18:12 hydromorphone [From Dilaudid] AdvReac Mild tactile Verified 03/02/19 18:12 disturbance GREG Inhibitors AdvReac Cough Verified 03/02/19 18:12 sodium dodecyclbenzene Allergy Rash/Hives Uncoded 02/20/19 04:26 sulfonate Physical Exam Vitals: Vital Signs Temp Pulse Resp BP Pulse Ox 03/03/19 08:00 97.9 F 47 L 18 100/55 100 03/03/19 07:00 50 L 16 98 03/03/19 06:00 48 L 16 100/55 99 03/03/19 05:00 48 L 15 96 03/03/19 04:00 97.7 F 46 L 12 91/58 97 03/03/19 03:53 13 03/03/19 03:00 50 L 13 125/60 100 03/03/19 02:00 52 L 11 L 95/49 97 03/03/19 01:02 53 L 14 99 03/03/19 01:00 50 L 10 L 104/53 99 03/03/19 00:00 98.4 F 67 17 96/48 98 03/02/19 23:34 12 03/02/19 23:00 66 12 106/63 99 03/02/19 22:10 98.7 F 69 19 121/63 99 03/02/19 22:05 19 03/02/19 22:00 98.3 F 75 20 140/72 99 03/02/19 21:00 98.1 F 74 20 100/60 100 03/02/19 20:32 82 20 114/68 99 03/02/19 19:59 70 20 107/62 99 03/02/19 18:59 72 20 111/58 99 03/02/19 17:40 98.4 F 78 18 135/103 100 Intake and Output 03/02/19 03/03/19 03/03/19 22:59 06:59 14:59 Intake Total 100 800 100 Balance 100 800 100 Intake: IV 100 800 100 Sodium Chloride 0.9% 1, 100 800 100 000 ml @ 100 mls/hr IV . Q10H [facility] Rx#:[id number] Other: Voiding Method Toilet Toilet Bedside Commode Bedside Commode # Voids 0 1 0 Weight 86.183 kg 87.1 kg Head normocephalic Neck supple Lungs clear to auscultation bilaterally no wheezing or crackles Heart regular rate and rhythm S1-S2, no rub or gallop Abdomen is soft nontender nondistended positive bowel sounds no hepatosplenomegaly. Right upper quadrant ostomy in place Extremities no edema Neuro alert and orientated to 3 Results CBC & Chem 7: 03/03/19 04:26 03/03/19 04:26 Labs: Abnormal Lab Results - Last 24 Hours (Table) 03/02/19 03/02/19 03/02/19 Range/Units 18:11 18:11 18:11 RBC 3.54 L (3.80-5.40) m/uL MCV 103.1 H (80.0-100.0) fL MCH 35.1 H (25.0-35.0) pg RDW 16.2 H (11.5-15.5) % Plt Count 65 L (150-450) k/uL PT (9.0-12.0) sec INR (<1.2) Sodium 134 L (137-145) mmol/L BUN 24 H (7-17) mg/dL Creatinine 1.33 H (0.52-1.04) mg/dL Glucose 218 H (74-99) mg/dL POC Glucose (mg/dL) (75-99) mg/dL Calcium (8.4-10.2) mg/dL Total Bilirubin 2.2 H (0.2-1.3) mg/dL AST 62 H (14-36) U/L Alkaline Phosphatase 260 H (38-126) U/L Ammonia 62 H (<30) umol/L Troponin I (0.000-0.034) ng/mL Total Protein (6.3-8.2) g/dL Albumin 3.1 L (3.5-5.0) g/dL Urine Nitrite (Negative) Urine Bacteria (None) /hpf Hyaline Casts (0-2) /lpf Urine Mucus (None) /hpf 03/02/19 03/02/19 03/02/19 Range/Units 18:11 18:11 19:50 RBC (3.80-5.40) m/uL MCV (80.0-100.0) fL MCH (25.0-35.0) pg RDW (11.5-15.5) % Plt Count (150-450) k/uL PT 13.5 H (9.0-12.0) sec INR 1.3 H (<1.2) Sodium (137-145) mmol/L BUN (7-17) mg/dL Creatinine (0.52-1.04) mg/dL Glucose (74-99) mg/dL POC Glucose (mg/dL) (75-99) mg/dL Calcium (8.4-10.2) mg/dL Total Bilirubin (0.2-1.3) mg/dL AST (14-36) U/L Alkaline Phosphatase (38-126) U/L Ammonia (<30) umol/L Troponin I 0.102 H* (0.000-0.034) ng/mL Total Protein (6.3-8.2) g/dL Albumin (3.5-5.0) g/dL Urine Nitrite Positive H (Negative) Urine Bacteria Many H (None) /hpf Hyaline Casts 12 H (0-2) /lpf Urine Mucus Rare H (None) /hpf 03/02/19 03/03/19 03/03/19 Range/Units 22:08 00:57 02:40 RBC (3.80-5.40) m/uL MCV (80.0-100.0) fL MCH (25.0-35.0) pg RDW (11.5-15.5) % Plt Count (150-450) k/uL PT (9.0-12.0) sec INR (<1.2) Sodium (137-145) mmol/L BUN (7-17) mg/dL Creatinine (0.52-1.04) mg/dL Glucose (74-99) mg/dL POC Glucose (mg/dL) 235 H 162 H (75-99) mg/dL Calcium (8.4-10.2) mg/dL Total Bilirubin (0.2-1.3) mg/dL AST (14-36) U/L Alkaline Phosphatase (38-126) U/L Ammonia (<30) umol/L Troponin I 0.112 H* (0.000-0.034) ng/mL Total Protein (6.3-8.2) g/dL Albumin (3.5-5.0) g/dL Urine Nitrite (Negative) Urine Bacteria (None) /hpf Hyaline Casts (0-2) /lpf Urine Mucus (None) /hpf 03/03/19 03/03/19 03/03/19 Range/Units 04:26 04:26 04:26 RBC 3.36 L (3.80-5.40) m/uL MCV 104.2 H (80.0-100.0) fL MCH (25.0-35.0) pg RDW (11.5-15.5) % Plt Count 60 L (150-450) k/uL PT (9.0-12.0) sec INR (<1.2) Sodium 135 L (137-145) mmol/L BUN 21 H (7-17) mg/dL Creatinine 1.11 H (0.52-1.04) mg/dL Glucose 108 H (74-99) mg/dL POC Glucose (mg/dL) (75-99) mg/dL Calcium 8.2 L (8.4-10.2) mg/dL Total Bilirubin 1.6 H (0.2-1.3) mg/dL AST 53 H (14-36) U/L Alkaline Phosphatase 229 H (38-126) U/L Ammonia (<30) umol/L Troponin I 0.111 H* (0.000-0.034) ng/mL Total Protein 5.7 L (6.3-8.2) g/dL Albumin 2.5 L (3.5-5.0) g/dL Urine Nitrite (Negative) Urine Bacteria (None) /hpf Hyaline Casts (0-2) /lpf Urine Mucus (None) /hpf 03/03/19 Range/Units 04:26 RBC (3.80-5.40) m/uL MCV (80.0-100.0) fL MCH (25.0-35.0) pg RDW (11.5-15.5) % Plt Count (150-450) k/uL PT (9.0-12.0) sec INR (<1.2) Sodium (137-145) mmol/L BUN (7-17) mg/dL Creatinine (0.52-1.04) mg/dL Glucose (74-99) mg/dL POC Glucose (mg/dL) (75-99) mg/dL Calcium (8.4-10.2) mg/dL Total Bilirubin (0.2-1.3) mg/dL AST (14-36) U/L Alkaline Phosphatase (38-126) U/L Ammonia 197 H (<30) umol/L Troponin I (0.000-0.034) ng/mL Total Protein (6.3-8.2) g/dL Albumin (3.5-5.0) g/dL Urine Nitrite (Negative) Urine Bacteria (None) /hpf Hyaline Casts (0-2) /lpf Urine Mucus (None) /hpf Microbiology - Last 24 Hours (Table) 03/02/19 19:50 Urine Culture - Preliminary Urine,Voided Thrombosis Risk Factor Assmnt - Choose All That Apply Each Factor Represents 1 point: Obesity (BMI >25) Each Risk Factor Represents 2 Points: Age 61-74 years Other congenital or acquired thrombophilia - If yes, enter type in comment: No Thrombosis Risk Factor Assessment Total Risk Factor Score: 3 Thrombosis Risk Factor Assessment Level: Moderate Risk Assessment and Plan Assessment: 1. Irregular heart rate with palpitations. EKG was completed showing sinus rhythm with frequent premature ventricular complexes in a pattern of bigeminy, right bundle branch block. Patient's metoprolol was discontinued during previous admission per cardiology due to bradycardia. Cardiology services have been consulted. Patient did receive dose of metoprolol in ER. Patient's heart rate now in the 40s. 2-D echo was completed during previous admission showing an EF of 45-50% 2. Elevated troponins. Initial troponin 0.112, 0.111. Cardiology services have been consulted 3. Chronic elevated ammonia level. Patient is maintained on lactulose and Xifaxan. Current ammonia level CLXXXIII. Repeat ammonia levels daily 4. Chronic kidney disease stage III. Current creatinine 1.1 this does appear baseline for patient 5. Recent urinary tract infection. Patient was DC'd one week prior on Macrobid for 7 days. Urine Culture ordered 6. History of hepatocellular carcinoma status post embolization in 2012, 2015 and 2017 7. History of chronic abdominal pain due to recurring abdominal ascites. Patient is maintained on Aldactone and torsemide. Awaiting cardiology consult prior to restarting 8. History of diverticulitis with ileostomy placement 9. History of pancytopenia due to liver cancer secondary to chronic liver cirrhosis 10. Insulin-dependent diabetes mellitus. Metformin A1c 5.5 01/04/2019. 11. Iron deficiency anemia. Patient maintained on ferrous sulfate 12. History of depression 13. Chronic elevated LFTs due to chronic liver malignancy DVT prophylaxis SCDs due to low platelets. GI prophylaxis Protonix Cardiology services have been consulted Time with Patient: Greater than 30 (Greater than 60% of the total time spent in counseling and coordination of care. I performed an examination of the patient and discussed their management with the Nurse Practitioner. I have reviewed the Nurse Practitioner's notes and agree with the documented findings and plan of care)
[2019-03-03] MEDS: ONDANSETRON 4 MG/2 ML VIAL IVP PRN (10:54)
[2019-03-03 11:50] LABS: Glucose,Whole Blood 208 mg/dL (75-99)
[2019-03-03] MEDS: SUCRALFATE 1 GM TAB PO SCH ×3 (13:30→20:15)
[2019-03-03] MEDS: METOPROLOL TARTRATE 12.5 MG TAB PO SCH ×2 (13:33→20:07)
[2019-03-03 13:42] LABS: Glucose,Whole Blood 177 mg/dL (75-99)
--- NOTE | 2019-03-03 14:57 | CONS ---
CONSULTATION Charlene is a 73-year-old lady who follows with Dr. Martinez in the outpatient setting. She comes to hospital because of dizziness. She had palpitations and dizziness, called the EMS. They did a rhythm strip on her that showed run of nonsustained VT and frequent PVCs. Since admission she is in sinus rhythm with PVCs, received beta blockers in the emergency room and became somewhat bradycardic. The patient denies chest pain, difficulty in breathing or syncope. She was recently in the hospital and had PVCs at that time and also had bradycardia. Her echo at that time showed an ejection fraction of 45%. PAST MEDICAL HISTORY: Past medical history is significant for: 1. Hypertension. 2. Liver disease. 3. Renal disease. 4. Cancer. 5. Diabetes. ALLERGIES: 1. AMLODIPINE. 2. OXYCODONE. 3. PENICILLIN. 4. DILAUDID. MEDICATIONS: Medications at home included: 1. Insulin. 2. Xifaxan. 3. Klonopin. 4. MS Contin. 5. Bentyl. 6. Prilosec. 7. Carafate. 8. Aldactone. 9. Wellbutrin. 10.Torsemide. PAST SURGICAL HISTORY: Past surgical history is significant for: 1. Appendectomy. 2. Bowel resection. 3. section. 4. Cholecystectomy. 5. Hysterectomy. 6. Tonsillectomy. 7. Hepatocellular carcinoma with liver failure. REVIEW OF SYSTEMS: HEENT is unremarkable. CARDIAC: As described above. RESPIRATORY: Negative. GI: Negative. GENITOURINARY: Negative. ALLERGY: Negative. IMMUNOLOGY: Negative. SKIN: Negative. MUSCULOSKELETAL: Significant for arthritis. PSYCHOSOCIAL: Negative. ENDOCRINE: Negative. DERMATOLOGY: Negative. CONSTITUTIONAL: Negative. ONCOLOGICAL: Negative. MOISTURE TESTER: Negative. Rest of the system review is not relevant. PHYSICAL EXAMINATION: Heart rate is 50 beats per minute. Blood pressure is 100/55, respiratory rate 18. Chest exam reveals diminished air entry at the bases. Heart exam reveals first and second heart sounds. No gallop. No murmur. ABDOMEN: Soft. Examination of extremities did not reveal any edema. Peripheral pulses are felt. EKG shows sinus rhythm with PVCs, poor R-wave progression and nonspecific ST-T wave changes. LABS: Hemoglobin 11.5, platelet count 60. Potassium is 3.6. Troponins are elevated at 0.1, 0.1 and 0.1. ASSESSMENT: 1. Nonsustained ventricular tachycardia. 2. Cardiomyopathy. 3. Sinus bradycardia secondary to beta blockers. 4. Hepatocellular carcinoma. PLAN: I am going to decrease the metoprolol to 12.5 b.i.d., watch her on telemetry and see how she does. Her troponin is in the aguilar zone, but there is no definite pattern to it. MMODL / IJN: [id number] /
[2019-03-03] MEDS: DICYCLOMINE 10 MG CAP PO SCH ×2 (16:57→20:15)
[2019-03-03 17:10] LABS: Glucose,Whole Blood 184 mg/dL (75-99)
[2019-03-03] MEDS: SPIRONOLACTONE 25 MG TAB PO SCH (20:15)
[2019-03-03] MEDS: FERROUS SULFATE 325 MG TAB PO SCH (20:15)
[2019-03-03] MEDS: RIFAXIMIN 550 MG TABLET PO SCH (20:15)
[2019-03-03 20:23] LABS: Glucose,Whole Blood 216 mg/dL (75-99)
[2019-03-03] MEDS: INSULIN NPH 300 UNIT/3 ML VIAL SQ SCH (20:38)
[2019-03-03] MEDS: clonazePAM 0.5 MG TAB PO PRN (23:14)
[2019-03-04] MEDS: SODIUM CHLORIDE 0.9% 1,000 ML IV SCH ×2 (03:05→23:16)
[2019-03-04 03:18] LABS: Glucose,Whole Blood 156 mg/dL (75-99)
[2019-03-04] MEDS: INSULIN ASPART (NovoLOG) 100 UNIT/ML VIAL SQ SCH ×5 (03:22→23:17)
[2019-03-04 05:54] LABS: Glucose,Whole Blood 141 mg/dL (75-99)
[2019-03-04 08:06] LABS: Albumin 2.1 g/dL (3.5-5.0); Total Bilirubin 1.2 mg/dL (0.2-1.3); Total Protein 5.1 g/dL (6.3-8.2)
[2019-03-04 08:21] LABS: Basophils % (A) 1 %; Eosinophils # (A) 0.2 k/uL (0-0.7); Eosinophils % (A) 4 %; HGB 11.2 gm/dL (11.4-16.0); Lymphocytes % (A) 28 %; MCH 34.9 pg (25.0-35.0); MCV 105.6 fL (80.0-100.0); Macrocytosis Moderate; Mean Platelet Volume 9.7; Monocytes # (A) 0.3 k/uL (0-1.0); Monocytes % (A) 9 %; Neutrophils # (A) 2.1 k/uL (1.3-7.7); Neutrophils % (A) 56 %; RBC 3.22 m/uL (3.80-5.40); RDW 15.9 % (11.5-15.5); WBC 3.7 k/uL (3.8-10.6)
[2019-03-04 08:35] LABS: Platelet Count 54 k/uL (150-450)
[2019-03-04] MEDS: CHOLECALCIFEROL 1,000 UNIT TAB PO SCH (08:56)
[2019-03-04] MEDS: LACTULOSE 20 GM/30 ML CUP PO SCH ×2 (08:56→21:33)
[2019-03-04] MEDS: SPIRONOLACTONE 25 MG TAB PO SCH ×2 (08:57→21:33)
[2019-03-04] MEDS: METOPROLOL TARTRATE 12.5 MG TAB PO SCH ×2 (08:57→21:35)
[2019-03-04] MEDS: clonazePAM 0.5 MG TAB PO PRN (08:57)
[2019-03-04] MEDS: MORPHINE SULFATE ER 15 MG TABLET PO SCH ×3 (08:57→21:33)
[2019-03-04] MEDS: SUCRALFATE 1 GM TAB PO SCH ×4 (08:57→21:34)
[2019-03-04] MEDS: INSULIN NPH 300 UNIT/3 ML VIAL SQ SCH ×2 (08:58→21:34)
[2019-03-04] MEDS: MAGNESIUM OXIDE 400 MG TAB PO SCH (08:58)
[2019-03-04] MEDS: FERROUS SULFATE 325 MG TAB PO SCH ×2 (08:58→21:34)
[2019-03-04] MEDS: DICYCLOMINE 10 MG CAP PO SCH ×3 (08:58→21:34)
[2019-03-04] MEDS: RIFAXIMIN 550 MG TABLET PO SCH ×2 (08:59→21:34)
[2019-03-04] MEDS: buPROPion SR 150 MG TABLET.ER PO SCH (08:59)
[2019-03-04] MEDS: MAGNESIUM SULFATE-D5W PMX 1 GM in DEXTROSE/WATER 1 100ML.BAG IVPB SCH ×2 (09:10→12:24)
[2019-03-04 11:26] LABS: Glucose,Whole Blood 218 mg/dL (75-99)
--- NOTE | 2019-03-04 12:15 | P.PN ---
Subjective Progress Note Date: 03/04/19 This is a 73-year-old lady who follows with Dr. Matson in the outpatient setting, she presented to the hospital with symptoms of dizziness. Seen in consultation yesterday by Dr. Figueroa, she was found to have runs of nonsustained ventricular tachycardia as well as frequent PVCs. Patient was also noted to be mildly bradycardic. Upon review of the rhythm strips throughout the night last night, she has had no further episodes of ventricular tachycardia. An occasional PVC has been noted. Patient does have history of hypertension, liver disease, renal disease, and diabetes. Objective - Vital Signs Vital signs: Vital Signs Temp 98.7 F 03/04/19 00:58 Pulse 54 L 03/04/19 08:00 Resp 16 03/04/19 11:41 BP 110/54 03/04/19 08:00 Pulse Ox 100 03/04/19 08:00 Intake & Output 03/03/19 03/04/19 03/04/19 18:59 06:59 18:59 Intake Total 1200 200 80 Balance 1200 200 80 Weight 91 kg Intake: IV 1200 200 Sodium Chloride 0.9% 1, 1200 200 000 ml @ 100 mls/hr IV . Q10H [facility] Rx#:[id number] Oral 80 Other: Voiding Method Toilet Toilet Toilet # Voids 1 1 - Exam PHYSICAL EXAMINATION: GENERAL: 73-year-old female in no acute distress at the time of my examination HEENT: Head is atraumatic, normocephalic. Pupils equal, round. Sclera anicteric. Conjunctiva are clear. Mucous membranes of the mouth are moist. Neck is supple. There is no elevated jugular venous pressure. No carotid bruit is heard. HEART EXAMINATION: Heart S1, S2 normal. No murmur or gallop heard. CHEST EXAMINATION: Lungs are clear to auscultation and precussion. No chest wall tenderness is noted on palpation or with deep breathing. ABDOMEN: Soft, nontender. Bowel sounds are heard. No organomegaly noted. EXTREMITIES: 2+ peripheral pulses with no evidence of peripheral edema and no calf tenderness noted. NEUROLOGIC patient is awake, alert and oriented 3 . . - Labs CBC & Chem 7: 03/04/19 07:20 03/04/19 07:20 Labs: Abnormal Lab Results - Last 24 Hours (Table) 03/03/19 03/03/19 03/03/19 Range/Units 13:31 16:59 20:09 WBC (3.8-10.6) k/uL RBC (3.80-5.40) m/uL Hgb (11.4-16.0) gm/dL MCV (80.0-100.0) fL RDW (11.5-15.5) % Plt Count (150-450) k/uL Chloride (98-107) mmol/L BUN (7-17) mg/dL Glucose (74-99) mg/dL POC Glucose (mg/dL) 177 H 184 H 216 H (75-99) mg/dL Calcium (8.4-10.2) mg/dL AST (14-36) U/L Alkaline Phosphatase (38-126) U/L Total Protein (6.3-8.2) g/dL Albumin (3.5-5.0) g/dL 03/04/19 03/04/19 03/04/19 Range/Units 03:10 05:53 07:20 WBC 3.7 L (3.8-10.6) k/uL RBC 3.22 L (3.80-5.40) m/uL Hgb 11.2 L (11.4-16.0) gm/dL MCV 105.6 H (80.0-100.0) fL RDW 15.9 H (11.5-15.5) % Plt Count 54 L (150-450) k/uL Chloride (98-107) mmol/L BUN (7-17) mg/dL Glucose (74-99) mg/dL POC Glucose (mg/dL) 156 H 141 H (75-99) mg/dL Calcium (8.4-10.2) mg/dL AST (14-36) U/L Alkaline Phosphatase (38-126) U/L Total Protein (6.3-8.2) g/dL Albumin (3.5-5.0) g/dL 03/04/19 03/04/19 Range/Units 07:20 11:25 WBC (3.8-10.6) k/uL RBC (3.80-5.40) m/uL Hgb (11.4-16.0) gm/dL MCV (80.0-100.0) fL RDW (11.5-15.5) % Plt Count (150-450) k/uL Chloride 115 H (98-107) mmol/L BUN 18 H (7-17) mg/dL Glucose 121 H (74-99) mg/dL POC Glucose (mg/dL) 218 H (75-99) mg/dL Calcium 8.0 L (8.4-10.2) mg/dL AST 49 H (14-36) U/L Alkaline Phosphatase 215 H (38-126) U/L Total Protein 5.1 L (6.3-8.2) g/dL Albumin 2.1 L (3.5-5.0) g/dL Microbiology - Last 24 Hours (Table) 03/02/19 19:50 Urine Culture - Preliminary Urine,Voided Gram Neg Bacilli Assessment and Plan Plan: Assessment and plan #1 nonsustained ventricular tachycardia #2 cardiomyopathy #3 sinus bradycardia secondary to beta blockers #4 hepatocellular carcinoma #5 diabetes Plan From cardiology's perspective, we will continue current dose of beta samy 12- 1/2 kg one tablet by mouth twice a day. Continue to observe for 24 hours. DNP note has been reviewed, I agree with a documented findings and plan of care. Patient was seen and examined.
--- NOTE | 2019-03-04 12:19 | P.PN ---
Subjective Progress Note Date: 03/04/19 03/04/2018: Patient seen and examined. Patient is lying in bed on room air. She states that she is not yet feeling any better. She denies chest pain and shortness of breath. The patient was found to have gram-negative bacilli in her urine. The patient will be started on antibiotics. White blood cell count is 3.7 today. We will monitor this closely. The patient appears to have pancytopenia which is chronic and stable. Objective - Vital Signs Vital signs: Vital Signs Temp 98.7 F 03/04/19 00:58 Pulse 54 L 03/04/19 08:00 Resp 16 03/04/19 11:41 BP 110/54 03/04/19 08:00 Pulse Ox 100 03/04/19 08:00 Intake & Output 03/03/19 03/04/19 03/04/19 18:59 06:59 18:59 Intake Total 1200 200 80 Balance 1200 200 80 Weight 91 kg Intake: IV 1200 200 Sodium Chloride 0.9% 1, 1200 200 000 ml @ 100 mls/hr IV . Q10H [facility] Rx#:[id number] Oral 80 Other: Voiding Method Toilet Toilet Toilet # Voids 1 1 - Exam Head normocephalic Neck supple Lungs clear to auscultation bilaterally no wheezing or crackles Heart regular rate and rhythm S1-S2, no rub or gallop Abdomen is soft nontender nondistended positive bowel sounds no hep atosplenomegaly. Right upper quadrant ostomy in place Extremities no edema Neuro alert and orientated to 3 - Labs CBC & Chem 7: 03/04/19 07:20 03/04/19 07:20 Labs: Abnormal Lab Results - Last 24 Hours (Table) 03/03/19 03/03/19 03/03/19 Range/Units 13:31 16:59 20:09 WBC (3.8-10.6) k/uL RBC (3.80-5.40) m/uL Hgb (11.4-16.0) gm/dL MCV (80.0-100.0) fL RDW (11.5-15.5) % Plt Count (150-450) k/uL Chloride (98-107) mmol/L BUN (7-17) mg/dL Glucose (74-99) mg/dL POC Glucose (mg/dL) 177 H 184 H 216 H (75-99) mg/dL Calcium (8.4-10.2) mg/dL AST (14-36) U/L Alkaline Phosphatase (38-126) U/L Total Protein (6.3-8.2) g/dL Albumin (3.5-5.0) g/dL 03/04/19 03/04/19 03/04/19 Range/Units 03:10 05:53 07:20 WBC 3.7 L (3.8-10.6) k/uL RBC 3.22 L (3.80-5.40) m/uL Hgb 11.2 L (11.4-16.0) gm/dL MCV 105.6 H (80.0-100.0) fL RDW 15.9 H (11.5-15.5) % Plt Count 54 L (150-450) k/uL Chloride (98-107) mmol/L BUN (7-17) mg/dL Glucose (74-99) mg/dL POC Glucose (mg/dL) 156 H 141 H (75-99) mg/dL Calcium (8.4-10.2) mg/dL AST (14-36) U/L Alkaline Phosphatase (38-126) U/L Total Protein (6.3-8.2) g/dL Albumin (3.5-5.0) g/dL 03/04/19 03/04/19 Range/Units 07:20 11:25 WBC (3.8-10.6) k/uL RBC (3.80-5.40) m/uL Hgb (11.4-16.0) gm/dL MCV (80.0-100.0) fL RDW (11.5-15.5) % Plt Count (150-450) k/uL Chloride 115 H (98-107) mmol/L BUN 18 H (7-17) mg/dL Glucose 121 H (74-99) mg/dL POC Glucose (mg/dL) 218 H (75-99) mg/dL Calcium 8.0 L (8.4-10.2) mg/dL AST 49 H (14-36) U/L Alkaline Phosphatase 215 H (38-126) U/L Total Protein 5.1 L (6.3-8.2) g/dL Albumin 2.1 L (3.5-5.0) g/dL Microbiology - Last 24 Hours (Table) 03/02/19 19:50 Urine Culture - Preliminary Urine,Voided Gram Neg Bacilli Assessment and Plan Assessment: 1. Irregular heart rate with palpitations. EKG was completed showing sinus rhythm with frequent premature ventricular complexes in a pattern of bigeminy, right bundle branch block. Patient's metoprolol was discontinued during previou s admission per cardiology due to bradycardia. Cardiology services have been consulted. Patient did receive dose of metoprolol in ER. Patient's heart rate now in the 40s. 2-D echo was completed during previous admission showing an EF of 45-50% 2. Elevated troponins. Initial troponin 0.112, 0.111. Cardiology services have been consulted 3. Chronic elevated ammonia level. Patient is maintained on lactulose and Xifaxan. Current ammonia level 28. Repeat ammonia levels daily 4. Chronic kidney disease stage III. Current creatinine 1.1 this does appear baseline for patient 5. Recent urinary tract infection. Patient was DC'd one week prior on Macrobid for 7 days. Urine Culture reviewed, will add Rocephin 6. History of hepatocellular carcinoma status post embolization in 2012, 2015 and 2017 7. History of chronic abdominal pain due to recurring abdominal ascites. Patient is maintained on Aldactone and torsemide. Awaiting cardiology consult prior to restarting 8. History of diverticulitis with ileostomy placement 9. History of pancytopenia due to liver cancer secondary to chronic liver cirrhosis 10. Insulin-dependent diabetes mellitus. Metformin A1c 5.5 01/04/2019. 11. Iron deficiency anemia. Patient maintained on ferrous sulfate 12. History of depression 13. Chronic elevated LFTs due to chronic liver malignancy 14. Pancytopenia which is chronic and stable at this time DVT prophylaxis SCDs due to low platelets. GI prophylaxis Protonix Cardiology services have been consulted Possible DC in 24-48 hours pending cardiology recommendations
[2019-03-04] MEDS: LEVOFLOXACIN 250 MG TAB PO SCH (16:20)
[2019-03-04 16:58] LABS: Glucose,Whole Blood 112 mg/dL (75-99)
[2019-03-04 21:16] LABS: Glucose,Whole Blood 142 mg/dL (75-99)
[2019-03-05 05:05] LABS: Glucose,Whole Blood 152 mg/dL (75-99)
[2019-03-05] MEDS: INSULIN ASPART (NovoLOG) 100 UNIT/ML VIAL SQ SCH ×5 (05:38→21:58)
[2019-03-05 06:38] LABS: Glucose,Whole Blood 125 mg/dL (75-99)
[2019-03-05 07:02] LABS: Albumin 2.2 g/dL (3.5-5.0); Calcium 8.4 mg/dL (8.4-10.2); Potassium 4.6 mmol/L (3.5-5.1); Total Bilirubin 1.5 mg/dL (0.2-1.3); Total Protein 5.2 g/dL (6.3-8.2)
[2019-03-05 07:26] LABS: Basophils % (A) 1 %; Eosinophils # (A) 0.1 k/uL (0-0.7); Eosinophils % (A) 3 %; HCT 34.7 % (34.0-46.0); HGB 11.4 gm/dL (11.4-16.0); Lymphocytes % (A) 22 %; MCH 34.9 pg (25.0-35.0); MCHC 32.9 g/dL (31.0-37.0); MCV 106.1 fL (80.0-100.0); Macrocytosis Moderate; Mean Platelet Volume 9.3; Monocytes # (A) 0.4 k/uL (0-1.0); Monocytes % (A) 9 %; Neutrophils # (A) 2.9 k/uL (1.3-7.7); Neutrophils % (A) 63 %; RBC 3.27 m/uL (3.80-5.40); RDW 15.7 % (11.5-15.5); WBC 4.5 k/uL (3.8-10.6)
[2019-03-05 07:31] LABS: Platelet Count 56 k/uL (150-450)
[2019-03-05] MEDS: SPIRONOLACTONE 25 MG TAB PO SCH ×2 (08:58→20:46)
[2019-03-05] MEDS: SUCRALFATE 1 GM TAB PO SCH ×4 (08:58→20:46)
[2019-03-05] MEDS: LACTULOSE 20 GM/30 ML CUP PO SCH ×2 (08:58→20:47)
[2019-03-05] MEDS: MAGNESIUM OXIDE 400 MG TAB PO SCH (08:59)
[2019-03-05] MEDS: FERROUS SULFATE 325 MG TAB PO SCH ×2 (08:59→20:47)
[2019-03-05] MEDS: DICYCLOMINE 10 MG CAP PO SCH ×3 (08:59→20:46)
[2019-03-05] MEDS: RIFAXIMIN 550 MG TABLET PO SCH ×2 (08:59→20:47)
[2019-03-05] MEDS: buPROPion SR 150 MG TABLET.ER PO SCH (08:59)
[2019-03-05] MEDS: INSULIN NPH 300 UNIT/3 ML VIAL SQ SCH ×2 (08:59→21:59)
[2019-03-05] MEDS: LEVOFLOXACIN 250 MG TAB PO SCH (08:59)
[2019-03-05] MEDS: METOPROLOL TARTRATE 12.5 MG TAB PO SCH ×2 (09:00→20:46)
[2019-03-05] MEDS: MORPHINE SULFATE ER 15 MG TABLET PO SCH ×2 (09:00→14:11)
--- NOTE | 2019-03-05 10:46 | P.PN ---
Subjective Progress Note Date: 03/05/19 This is a 73-year-old lady who follows with Dr. Matson in the outpatient setting, she presented to the hospital with symptoms of dizziness. Seen in consultation yesterday by Dr. Figueroa, she was found to have runs of nonsustained ventricular tachycardia as well as frequent PVCs. Patient was also noted to be mildly bradycardic. Upon review of the rhythm strips throughout the night last night, she has had no further episodes of ventricular tachycardia. An occasional PVC has been noted. Patient does have history of hypertension, liver disease, renal disease, and diabetes. 03/05/2019 Patient was seen and examined this morning, she's been up ambulating in the hallway today, her main complaint is that she feels weak, she has not had any nonsustained VT on the monitor, and occasional PVC. She may go to short-term rehab following her hospitalization here. I pressure this morning 100/50 with a heart rate in the 50s Objective - Vital Signs Vital signs: Vital Signs Temp 99.1 F 03/05/19 08:00 Pulse 53 L 03/05/19 08:00 Resp 16 03/05/19 08:00 BP 100/55 03/05/19 08:00 Pulse Ox 99 03/05/19 08:00 Intake & Output 03/04/19 03/05/19 03/05/19 18:59 06:59 18:59 Intake Total 520 1500 Balance 520 1500 Weight 92.5 kg Intake: IV 1000 Sodium Chloride 0.9% 1, 1000 000 ml @ 100 mls/hr IV . Q10H [facility] Rx#:[id number] Oral 520 500 Other: Voiding Method Toilet # Voids 2 - Exam PHYSICAL EXAMINATION: GENERAL: 73-year-old female in no acute distress at the time of my examination HEENT: Head is atraumatic, normocephalic. Pupils equal, round. Sclera anicteric. Conjunctiva are clear. Mucous membranes of the mouth are moist. Neck is supple. There is no elevated jugular venous pressure. No carotid bruit is heard. HEART EXAMINATION: Heart S1, S2 normal. No murmur or gallop heard. CHEST EXAMINATION: Lungs are clear to auscultation and precussion. No chest wall tenderness is noted on palpation or with deep breathing. ABDOMEN: Soft, nontender. Bowel sounds are heard. No organomegaly noted. EXTREMITIES: 2+ peripheral pulses with no evidence of peripheral edema and no calf tenderness noted. NEUROLOGIC patient is awake, alert and oriented 3 . . - Labs CBC & Chem 7: 03/05/19 06:29 03/05/19 06:29 Labs: Abnormal Lab Results - Last 24 Hours (Table) 03/04/19 03/04/19 03/04/19 Range/Units 11:25 16:57 21:14 RBC (3.80-5.40) m/uL MCV (80.0-100.0) fL RDW (11.5-15.5) % Plt Count (150-450) k/uL Sodium (137-145) mmol/L Chloride (98-107) mmol/L Carbon Dioxide (22-30) mmol/L Glucose (74-99) mg/dL POC Glucose (mg/dL) 218 H 112 H 142 H (75-99) mg/dL Total Bilirubin (0.2-1.3) mg/dL AST (14-36) U/L Alkaline Phosphatase (38-126) U/L Ammonia (<30) umol/L Total Protein (6.3-8.2) g/dL Albumin (3.5-5.0) g/dL 03/05/19 03/05/19 03/05/19 Range/Units 05:02 06:29 06:29 RBC 3.27 L (3.80-5.40) m/uL MCV 106.1 H (80.0-100.0) fL RDW 15.7 H (11.5-15.5) % Plt Count 56 L (150-450) k/uL Sodium 136 L (137-145) mmol/L Chloride 114 H (98-107) mmol/L Carbon Dioxide 20 L (22-30) mmol/L Glucose 140 H (74-99) mg/dL POC Glucose (mg/dL) 152 H (75-99) mg/dL Total Bilirubin 1.5 H (0.2-1.3) mg/dL AST 55 H (14-36) U/L Alkaline Phosphatase 250 H (38-126) U/L Ammonia (<30) umol/L Total Protein 5.2 L (6.3-8.2) g/dL Albumin 2.2 L (3.5-5.0) g/dL 03/05/19 03/05/19 Range/Units 06:29 06:35 RBC (3.80-5.40) m/uL MCV (80.0-100.0) fL RDW (11.5-15.5) % Plt Count (150-450) k/uL Sodium (137-145) mmol/L Chloride (98-107) mmol/L Carbon Dioxide (22-30) mmol/L Glucose (74-99) mg/dL POC Glucose (mg/dL) 125 H (75-99) mg/dL Total Bilirubin (0.2-1.3) mg/dL AST (14-36) U/L Alkaline Phosphatase (38-126) U/L Ammonia 42 H (<30) umol/L Total Protein (6.3-8.2) g/dL Albumin (3.5-5.0) g/dL Microbiology - Last 24 Hours (Table) 03/02/19 19:50 Urine Culture - Final Urine,Voided Escherichia coli Assessment and Plan Plan: Assessment and plan #1 nonsustained ventricular tachycardia #2 cardiomyopathy #3 sinus bradycardia secondary to beta blockers #4 hepatocellular carcinoma #5 diabetes Plan From cardiology's perspective, we will continue current dose of beta samy 12- 1/2 kg one tablet by mouth twice a day. Patient may be transferred to rehab p ossibly in the next 24 hours. DNP note has been reviewed, I agree with a documented findings and plan of care. Patient was seen and examined.
[2019-03-05] MEDS: SODIUM CHLORIDE 0.9% 1,000 ML IV SCH ×4 (10:48→18:00)
[2019-03-05 11:50] LABS: Glucose,Whole Blood 221 mg/dL (75-99)
[2019-03-05] MEDS: CHOLECALCIFEROL 1,000 UNIT TAB PO SCH (12:32)
[2019-03-05 17:06] LABS: Glucose,Whole Blood 191 mg/dL (75-99)
--- NOTE | 2019-03-05 18:38 | PN ---
PROGRESS NOTE She was seen on March 05, 2019. She feels weak at this time. She denies chest pain. She has some mild dyspnea. PHYSICAL EXAMINATION: Respiratory rate is 16, pulse rate of 61, temperature 98.6, blood pressure 119/60, O2 saturation on room air is 99%. HEENT is unremarkable. Chest is clear. Cardiovascular system reveals an S1, S2. Abdomen is soft. There is trace pedal edema. White count is 4.5, hemoglobin of 11.4. Sodium 136, potassium 4.6, chloride 114, bicarb 20, BUN 15, creatinine 0.96, glucose 125. IMPRESSION: At this time, 1. Cardiac dysrhythmia. Await final recommendations per Cardiology. 2. Elevated troponins. 3. Chronically elevated ammonia level. 4. Chronic kidney disease. 5. Recent urinary tract infection. 6. Hepatocellular carcinoma status post embolization in 2012, 2015 and 2017. 7. Chronic abdominal pain. 8. Diabetes mellitus. 9. Pancytopenia. Continue to increase her activity level. Discharge planning is possibly to the [facility] versus rehab unit. Continue her on her current medications including , Levaquin, lactulose, spironolactone, and insulin. Her prognosis is fair. MMODL / IJN: [id number] /
[2019-03-05 20:39] VITALS: RESP 16
[2019-03-05] MEDS: clonazePAM 0.5 MG TAB PO PRN (20:46)
[2019-03-05 21:21] LABS: Glucose,Whole Blood 189 mg/dL (75-99)
[2019-03-06] MEDS: MORPHINE SULFATE ER 15 MG TABLET PO SCH ×2 (01:39→08:14)
[2019-03-06] MEDS: INSULIN ASPART (NovoLOG) 100 UNIT/ML VIAL SQ SCH ×3 (04:12→12:22)
[2019-03-06 05:41] LABS: Glucose,Whole Blood 75 mg/dL (75-99)
[2019-03-06 06:29] LABS: Basophils % (A) 0 %; Eosinophils # (A) 0.2 k/uL (0-0.7); Eosinophils % (A) 4 %; HGB 10.5 gm/dL (11.4-16.0); Lymphocytes # (A) 1.2 k/uL (1.0-4.8); Lymphocytes % (A) 24 %; MCH 34.6 pg (25.0-35.0); MCV 108.1 fL (80.0-100.0); Macrocytosis Marked; Mean Platelet Volume 9.2; Monocytes # (A) 0.4 k/uL (0-1.0); Monocytes % (A) 7 %; Neutrophils % (A) 61 %; RBC 3.05 m/uL (3.80-5.40); RDW 15.4 % (11.5-15.5); WBC 4.9 k/uL (3.8-10.6)
[2019-03-06 06:34] LABS: Platelet Count 49 k/uL (150-450)
[2019-03-06 06:39] LABS: Albumin 2.1 g/dL (3.5-5.0); Calcium 8.2 mg/dL (8.4-10.2); Potassium 4.9 mmol/L (3.5-5.1); Total Bilirubin 1.9 mg/dL (0.2-1.3); Total Protein 5.2 g/dL (6.3-8.2)
[2019-03-06] MEDS: LACTULOSE 20 GM/30 ML CUP PO SCH (08:12)
[2019-03-06] MEDS: FERROUS SULFATE 325 MG TAB PO SCH (08:13)
[2019-03-06] MEDS: CHOLECALCIFEROL 1,000 UNIT TAB PO SCH (08:13)
[2019-03-06] MEDS: DICYCLOMINE 10 MG CAP PO SCH ×2 (08:13→15:47)
[2019-03-06] MEDS: METOPROLOL TARTRATE 12.5 MG TAB PO SCH (08:13)
[2019-03-06] MEDS: SPIRONOLACTONE 25 MG TAB PO SCH (08:13)
[2019-03-06] MEDS: MAGNESIUM OXIDE 400 MG TAB PO SCH (08:13)
[2019-03-06] MEDS: SUCRALFATE 1 GM TAB PO SCH ×2 (08:13→12:22)
[2019-03-06] MEDS: INSULIN NPH 300 UNIT/3 ML VIAL SQ SCH (08:18)
[2019-03-06] MEDS: buPROPion SR 150 MG TABLET.ER PO SCH (08:19)
[2019-03-06] MEDS: RIFAXIMIN 550 MG TABLET PO SCH (08:20)
[2019-03-06] MEDS: LEVOFLOXACIN 250 MG TAB PO SCH (08:20)
[2019-03-06] MEDS: SODIUM CHLORIDE 0.9% 1,000 ML IV SCH ×2 (09:38→16:08)
--- NOTE | 2019-03-06 11:08 | P.PN ---
Subjective Progress Note Date: 03/06/19 This is a 73-year-old lady who follows with Dr. Matson in the outpatient setting, she presented to the hospital with symptoms of dizziness. Seen in consultation yesterday by Dr. Figueroa, she was found to have runs of nonsustained ventricular tachycardia as well as frequent PVCs. Patient was also noted to be mildly bradycardic. Upon review of the rhythm strips throughout the night last night, she has had no further episodes of ventricular tachycardia. An occasional PVC has been noted. Patient does have history of hypertension, liver disease, renal disease, and diabetes. 03/05/2019 Patient was seen and examined this morning, she's been up ambulating in the hallway today, her main complaint is that she feels weak, she has not had any nonsustained VT on the monitor, and occasional PVC. She may go to short-term rehab following her hospitalization here. Blood pressure this morning 100/50 with a heart rate in the 50s. 03/06/2019 Patient was seen and examined this morning, continues to complain of feeling somewhat weak. No arrhythmias noted on the monitor. Arrangements are being made for transfer to rehab. White blood cell count 4.9, hemoglobin 10.5, platelet count 49. Sodium 134, potassium 4.9, BUN 16 and creatinine 0.9. Objective - Vital Signs Vital signs: Vital Signs Temp 98.8 F 03/06/19 07:53 Pulse 67 03/06/19 07:53 Resp 16 03/06/19 07:53 BP 110/58 03/06/19 07:53 Pulse Ox 97 03/06/19 07:53 Intake & Output 03/05/19 03/06/19 03/06/19 18:59 06:59 18:59 Intake Total 840 800 Balance 840 800 Weight 94.2 kg Intake: Intake, IV Titration 800 Amount Sodium Chloride 0.9% 1, 800 000 ml @ 100 mls/hr IV . Q10H [facility] Rx#:[id number] Oral 840 Other: Voiding Method Toilet # Voids 0 0 # Bowel Movements 0 - Exam PHYSICAL EXAMINATION: GENERAL: 73-year-old female in no acute distress at the time of my examination HEENT: Head is atraumatic, normocephalic. Pupils equal, round. Sclera anicteric. Conjunctiva are clear. Mucous membranes of the mouth are moist. Neck is supple. There is no elevated jugular venous pressure. No carotid bruit is heard. HEART EXAMINATION: Heart S1, S2 normal. No murmur or gallop heard. CHEST EXAMINATION: Lungs are clear to auscultation and precussion. No chest wall tenderness is noted on palpation or with deep breathing. ABDOMEN: Soft, nontender. Bowel sounds are heard. No organomegaly noted. EXTREMITIES: 2+ peripheral pulses with no evidence of peripheral edema and no calf tenderness noted. NEUROLOGIC patient is awake, alert and oriented 3 . . - Labs CBC & Chem 7: 03/06/19 05:55 03/06/19 05:55 Labs: Abnormal Lab Results - Last 24 Hours (Table) 03/05/19 03/05/19 03/05/19 Range/Units 11:48 17:04 21:13 RBC (3.80-5.40) m/uL Hgb (11.4-16.0) gm/dL Hct (34.0-46.0) % MCV (80.0-100.0) fL Plt Count (150-450) k/uL Sodium (137-145) mmol/L Chloride (98-107) mmol/L Carbon Dioxide (22-30) mmol/L POC Glucose (mg/dL) 221 H 191 H 189 H (75-99) mg/dL Calcium (8.4-10.2) mg/dL Total Bilirubin (0.2-1.3) mg/dL AST (14-36) U/L Alkaline Phosphatase (38-126) U/L Total Protein (6.3-8.2) g/dL Albumin (3.5-5.0) g/dL 03/06/19 03/06/19 Range/Units 05:55 05:55 RBC 3.05 L (3.80-5.40) m/uL Hgb 10.5 L (11.4-16.0) gm/dL Hct 33.0 L (34.0-46.0) % MCV 108.1 H (80.0-100.0) fL Plt Count 49 L (150-450) k/uL Sodium 134 L (137-145) mmol/L Chloride 114 H (98-107) mmol/L Carbon Dioxide 17 L (22-30) mmol/L POC Glucose (mg/dL) (75-99) mg/dL Calcium 8.2 L (8.4-10.2) mg/dL Total Bilirubin 1.9 H (0.2-1.3) mg/dL AST 50 H (14-36) U/L Alkaline Phosphatase 229 H (38-126) U/L Total Protein 5.2 L (6.3-8.2) g/dL Albumin 2.1 L (3.5-5.0) g/dL Assessment and Plan Plan: Assessment and plan #1 nonsustained ventricular tachycardia #2 cardiomyopathy #3 sinus bradycardia secondary to beta blockers #4 hepatocellular carcinoma #5 diabetes Plan From cardiology's perspective, we will continue current dose of beta samy 12- 1/2 kg one tablet by mouth twice a day. Patient may be transferred to rehab once cleared by primary. DNP note has been reviewed, I agree with a documented findings and plan of care. Patient was seen and examined.
[2019-03-06 12:18] LABS: Glucose,Whole Blood 219 mg/dL (75-99)
[2019-03-06 12:41] VITALS: BP 108/65; PULSE 66; TEMP 98.6
--- NOTE | 2019-03-06 14:23 | P.DS ---
Providers Date of admission: 03/02/19 20:10 Expected date of discharge: 03/06/19 Attending physician: Artemio Lea Consults: 03/02/19 20:10 Consult Physician Urgent Consulting Provider: Yuri Keith Consult Reason/Comments: vtach Do you want consulting provider notified?: Yes Primary care physician: Gilma Martinez [facility] Course: Discharge diagnosis 1. Nonsustained ventricle tachycardia: Cardiology added metoprolol 12.5 twice a day. Irregular heart rate with palpitations. EKG was completed showing sinus rhythm with frequent premature ventricular complexes in a pattern of bigeminy, right bundle branch block. Patient's metoprolol was discontinued during previous admission per cardiology due to bradycardia. Cardiology services have been consulted. Patient did receive dose of metoprolol in ER. Patient's heart rate now in the 40s. 2-D echo was completed during previous admission showing an EF of 45-50% 2. Elevated troponins. Initial troponin 0.112, 0.111. Patient evaluated by cardiology service acute coronary syndrome ruled out. 3. Chronic elevated ammonia level. Patient is maintained on lactulose and Xifaxan. Current ammonia level 28. Repeat ammonia levels daily 4. Chronic kidney disease stage III. Current creatinine 1.1 this does appear baseline for patient 5. Recent urinary tract infection. Patient was DC'd one week prior on Macrobid for 7 days. Urine Culture reviewed, will add Rocephin 6. History of hepatocellular carcinoma status post embolization in 2012, 2015 and 2017 7. History of chronic abdominal pain due to recurring abdominal ascites. Patient is maintained on Aldactone and torsemide. Awaiting cardiology consult prior to restarting 8. History of diverticulitis with ileostomy placement 9. History of pancytopenia due to liver cancer secondary to chronic liver cirrhosis 10. Insulin-dependent diabetes mellitus. Metformin A1c 5.5 01/04/2019. 11. Iron deficiency anemia. Patient maintained on ferrous sulfate 12. History of depression 13. Chronic elevated LFTs due to chronic liver malignancy 14. Pancytopenia which is chronic and stable at this time Hospital course This is a 73-year-old female patient of Dr. Kurtz. Patient presented to the hospital with complaints of palpitations. Patient reports she was at home when she felt that her heart was"thumping." EKG completed in ER showing sinus rhythm with frequent premature ventricular complexes in a pattern of bigeminy right bundle branch block moderate voltage criteria for LVH may be normal variant. Patient also had mildly elevated. Patient does have a past medical history of chronic kidney disease stage III, hepatocellular carcinoma, chronic abdominal pain, diverticulitis with ileostomy placement, nonalcohol liver cirrhosis, pa ncytopenia, insulin-dependent diabetes mellitus, iron deficiency anemia depression, chronic elevated LFTs. During last visit patient had episode of bradycardia. At that time Metroprolol was discontinued. Patient also was discharged 1 week ago and was treated for a urinary tract infection with Macrobid. 2-D echo was completed on 02/21/2019 showing an EF of 45-50%. She was given metoprolol 50 mg in ER. Heart rate now in the 40s. Cardiology services have been consulted. At this time patient is resting comfortably in bed. Patient is still complaining of occasional chest discomfort. Patient denies shortness of breath. Patient denies nausea vomiting or diarrhea. Patient denies any urinary burning or frequency. 03/04/2018: Patient seen and examined. Patient is lying in bed on room air. She states that she is not yet feeling any better. She denies chest pain and shortness of breath. The patient was found to have gram-negative bacilli in her urine. The patient will be started on antibiotics. White blood cell count is 3.7 today. We will monitor this closely. The patient appears to have pancytopenia which is chronic and stable. 03/06/2019 patient has been cleared by cardiology for discharge. She's had no further episodes evidence of nonsustained ventricle tachycardia. During this admission metoprolol 12.5 mg twice a day was added. She also underwent treatment for UTI with urine culture growing E. coli. She'll continue 4 more days of Levaquin. Patient's symptoms have improved. She is here for discharge to [facility] for further rehabilitation. Recommend checking CBC, CMP and ammonia level in 3 days I performed an examination of the patient and discussed their management with the physician Router Operator Radial. I have reviewed the Physician Router Operator Radial's notes and agree with the documented findings and plan of care Patient Condition at Discharge: Stable Plan - Discharge Summary Discharge Rx Participant: No New Discharge Prescriptions: New Levofloxacin [Levaquin] 250 mg PO DAILY #4 tab Metoprolol Tartrate [Lopressor] 12.5 mg PO BID #0 tab Continue Sucralfate [Carafate] 1 gm PO QID Omeprazole [PriLOSEC] 20 mg PO BID Dicyclomine [Bentyl] 10 mg PO TID Insulin Regular, Human [NovoLIN R] 10 unit SQ AC-TID buPROPion SR [Wellbutrin SR] 150 mg PO DAILY #30 tablet.er Spironolactone [Aldactone] 50 mg PO BID 30 Days #60 tab Magnesium Oxide [William] 500 mg PO DAILY Torsemide [Demadex] 20 mg PO DAILY 30 Days #30 tab Cholecalciferol [Vitamin D3] 4,000 unit PO DAILY Ferrous Sulfate [Iron (65 MG Elemental)] 325 mg PO BID Lactulose [Cephulac] 30 gm PO BID ml Insulin NPH [humuLIN N] 18 unit SQ BID vial Rifaximin [Xifaxan] 550 mg PO BID tablet clonazePAM [KlonoPIN] 0.5 mg PO DAILY PRN #3 tab PRN Reason: Anxiety Morphine Sulfate ER [Ms Contin] 15 mg PO Q12HR 3 Days #6 tablet Discontinued Nitrofurantoin Monohyd/M-Cryst [Macrobid] 100 mg PO BID #14 cap Discharge Medication List Dicyclomine [Bentyl] 10 mg PO TID 10/23/18 [History] Omeprazole [PriLOSEC] 20 mg PO BID 10/23/18 [History] Sucralfate [Carafate] 1 gm PO QID 10/23/18 [History] Insulin Regular, Human [NovoLIN R] 10 unit SQ AC-TID 10/24/18 [History] Spironolactone [Aldactone] 50 mg PO BID 30 Days #60 tab 12/21/18 [Rx] buPROPion SR [Wellbutrin SR] 150 mg PO DAILY #30 tablet.er 12/21/18 [Rx] Magnesium Oxide [William] 500 mg PO DAILY 12/30/18 [History] Torsemide [Demadex] 20 mg PO DAILY 30 Days #30 tab 01/09/19 [Rx] Cholecalciferol [Vitamin D3] 4,000 unit PO DAILY 01/16/19 [History] Ferrous Sulfate [Iron (65 MG Elemental)] 325 mg PO BID 01/31/19 [History] Insulin NPH [humuLIN N] 18 unit SQ BID vial 02/06/19 [Rx] Lactulose [Cephulac] 30 gm PO BID ml 02/06/19 [Rx] Rifaximin [Xifaxan] 550 mg PO BID tablet 02/06/19 [Rx] Levofloxacin [Levaquin] 250 mg PO DAILY #4 tab 03/06/19 [Rx] Metoprolol Tartrate [Lopressor] 12.5 mg PO BID #0 tab 03/06/19 [Rx] Morphine Sulfate ER [Ms Contin] 15 mg PO Q12HR 3 Days #6 tablet 03/06/19 [Rx] clonazePAM [KlonoPIN] 0.5 mg PO DAILY PRN #3 tab 03/06/19 [Rx] Follow up Appointment(s)/Referral(s): [facility] [Provider Group] - 1 Week Gilma Martinez MD [Primary Care Provider] - 1 Week Ambulatory/Diagnostic Orders: Comprehensive Metabolic Panel [LAB.AMB] Time Frame: 3 Days, Location: None Selected Patient Instructions/Handouts: Urinary Tract Infection in Women (DC), Tachycardia (ED) Activity/Diet/Wound Care/Special Instructions: Diet: cardiac, diabetic Activity: as tolerated ok to discharge to [facility] Discharge Disposition: TRANSFER TO SNF/ECF
== END 2019-03-06 16:32 | DRG 309 ==
LOC: EC 17:36 → 2SICU 20:10 → 3SCARD 03-03 21:03
PROVIDERS: ADMIT Internal Medicine; ATTEND Internal Medicine
DX: I47.2 Ventricular tachycardia (principal); D61.818 Other pancytopenia; I42.9 Cardiomyopathy, unspecified; N39.0 Urinary tract infection, site not specified; B96.20 Unspecified Escherichia coli [E. coli] as the cause of diseases classified elsewhere; D50.9 Iron deficiency anemia, unspecified; E11.22 Type 2 diabetes mellitus with diabetic chronic kidney disease; F32.9 Major depressive disorder, single episode, unspecified; F41.9 Anxiety disorder, unspecified; G89.29 Other chronic pain; I12.9 Hypertensive chronic kidney disease with stage 1 through stage 4 chronic kidney disease, or unspecified chronic kidney disease; I25.2 Old myocardial infarction; I45.10 Unspecified right bundle-branch block; K21.9 Gastro-esophageal reflux disease without esophagitis; K74.60 Unspecified cirrhosis of liver; N18.3 Chronic kidney disease, stage 3 (moderate); T44.7X5A Adverse effect of beta-adrenoreceptor antagonists, initial encounter; Z79.4 Long term (current) use of insulin; Z79.899 Other long term (current) drug therapy; Z82.49 Family history of ischemic heart disease and other diseases of the circulatory system; Z85.05 Personal history of malignant neoplasm of liver; Z87.11 Personal history of peptic ulcer disease; Z87.891 Personal history of nicotine dependence; Z88.0 Allergy status to penicillin; Z90.710 Acquired absence of both cervix and uterus; Z88.1 Allergy status to other antibiotic agents; Z88.5 Allergy status to narcotic agent; Z88.8 Allergy status to other drugs, medicaments and biological substances; Z90.49 Acquired absence of other specified parts of digestive tract; R74.8 Abnormal levels of other serum enzymes
CPT/HCPCS: 36415; 80053; 80061; 81001; 82140; 83690; 83735; 84100; 84443; 84484; 85025; 85610; 85730; 87077; 87086; 87186; 93005; 96361; 96374; 99291

== ENCOUNTER 2019-03-23 03:35 | Inpatient (IN) | payer MEDICARE ==
[2019-03-23] MEDS ORDERED: ONDANSETRON 4 MG/2 ML VIAL IVP STA (03:48)
[2019-03-23 03:49] LABS: Glucose,Whole Blood 88 mg/dL (75-99)
[2019-03-23 04:30] LABS: Albumin 3.2 g/dL (3.5-5.0); Calcium 8.9 mg/dL (8.4-10.2); Potassium 3.6 mmol/L (3.5-5.1); Total Protein 6.9 g/dL (6.3-8.2)
[2019-03-23 04:58] LABS: Basophils % (A) 1 %; Eosinophils # (A) 0.1 k/uL (0-0.7); Eosinophils % (A) 4 %; HCT 54.1 % (34.0-46.0); Lymphocytes # (A) 0.8 k/uL (1.0-4.8); Lymphocytes % (A) 24 %; MCH 35.1 pg (25.0-35.0); MCHC 32.8 g/dL (31.0-37.0); MCV 107.1 fL (80.0-100.0); Macrocytosis Moderate; Mean Platelet Volume 9.6; Monocytes # (A) 0.2 k/uL (0-1.0); Monocytes % (A) 6 %; Neutrophils # (A) 2.1 k/uL (1.3-7.7); Neutrophils % (A) 62 %; RBC 5.05 m/uL (3.80-5.40); RDW 15.6 % (11.5-15.5); WBC 3.4 k/uL (3.8-10.6)
[2019-03-23 04:59] LABS: HGB 17.7 gm/dL (11.4-16.0)
[2019-03-23 05:02] LABS: Platelet Count 49 k/uL (150-450)
--- NOTE | 2019-03-23 07:15 | ED ---
Nausea/Vomiting/Diarrhea HPI - General Chief complaint: Nausea/Vomiting/Diarrhea Stated complaint: jittery Time Seen by Provider: 03/23/19 03:46 Source: patient Mode of arrival: ambulatory Limitations: no limitations - History of Present Illness Initial comments: This patient is a 73-year-old woman who presents by ambulance after she had called them for not feeling like her usual self. The patient has history of chronic liver disease. She states that she has been feeling somewhat anxious or jittery. Previously when she has felt like this she was told that her ammonia level was high. In addition she has been having some nausea though not really having much vomiting. No change in abdominal pain. No fever or chills noted. No chest pain, coughing, shortness of breath. No change in bowel movements or urination MD complaint: nausea -: hour(s) Improves with: none Worsens with: none Associated Symptoms: nausea/vomiting - Related Data Home Medications Medication Instructions Recorded Confirmed Dicyclomine [Bentyl] 10 mg PO TID 10/23/18 03/02/19 Omeprazole [PriLOSEC] 20 mg PO BID 10/23/18 03/02/19 Sucralfate [Carafate] 1 gm PO QID 10/23/18 03/02/19 Insulin Regular, Human [NovoLIN R] 10 unit SQ AC-TID 10/24/18 03/02/19 Magnesium Oxide [William] 500 mg PO DAILY 12/30/18 03/02/19 Cholecalciferol [Vitamin D3 (25 4,000 unit PO DAILY 01/16/19 03/02/19 Mcg = 1000 Iu)] Ferrous Sulfate [Iron (65 MG 325 mg PO BID 01/31/19 03/02/19 Elemental)] Previous Rx's Medication Instructions Recorded Spironolactone [Aldactone] 50 mg PO BID 30 Days #60 tab 12/21/18 buPROPion SR [Wellbutrin SR] 150 mg PO DAILY #30 tablet.er 12/21/18 Torsemide [Demadex] 20 mg PO DAILY 30 Days #30 tab 01/09/19 Insulin NPH [humuLIN N] 18 unit SQ BID vial 02/06/19 Lactulose [Cephulac] 30 gm PO BID ml 02/06/19 Rifaximin [Xifaxan] 550 mg PO BID tablet 02/06/19 Levofloxacin [Levaquin] 250 mg PO DAILY #4 tab 03/06/19 Metoprolol Tartrate [Lopressor] 12.5 mg PO BID #0 tab 03/06/19 Morphine Sulfate ER [Ms Contin] 15 mg PO Q12HR 3 Days #6 tablet 03/06/19 clonazePAM [KlonoPIN] 0.5 mg PO DAILY PRN #3 tab 03/06/19 Allergies Allergy/AdvReac Type Severity Reaction Status Date / Time amlodipine Allergy Rash/Hives Verified 03/02/19 18:12 oxycodone Allergy Rash/Hives Verified 03/02/19 18:12 Penicillins Allergy Rash/Hives Verified 03/02/19 18:12 hydromorphone [From Dilaudid] AdvReac Mild tactile Verified 03/02/19 18:12 disturbance GREG Inhibitors AdvReac Cough Verified 03/02/19 18:12 sodium dodecyclbenzene Allergy Rash/Hives Uncoded 02/20/19 04:26 sulfonate Review of Systems ROS Statement: Those systems with pertinent positive or pertinent negative responses have been documented in the HPI. ROS Other: All systems not noted in ROS Statement are negative. Constitutional: Denies: fever, chills, weakness Respiratory: Denies: cough, dyspnea Cardiovascular: Denies: chest pain, palpitations, edema, syncope Gastrointestinal: Reports: nausea. Denies: abdominal pain, vomiting, diarrhea, constipation, melena, hematochezia Genitourinary: Denies: dysuria, hematuria Musculoskeletal: Denies: back pain Skin: Denies: rash Neurological: Reports: weakness. Denies: headache, numbness Psychiatric: Reports: anxiety Past Medical History Past Medical History: Cancer, Diabetes Mellitus, GERD/Reflux, Hypertension, Liver Disease, Myocardial Infarction ([place]), Renal Disease Additional Past Medical History / Comment(s): Pt recently admitted to [facility] on 01/31/19 with AMS/unresponsive likely d/t hepatic encephalopathy/elevated ammonia levels, elevated troponin thought non cardiac, UTI, urinary retention, acute on chronic kidney disease. Other Hx; Hepatocellular liver cancer with chemo immobilizations-last time being 2017, ascities with paracentesis's, nonalcoholic liver cirrhosis, pancytopenia, high ammonia levels, chronic elevated LFTs, stomach ulcer, diverticular disease with ileostomy, IDDM type II, iron anemia, CKD stage II., Last Myocardial Infarction Date:: unk History of Any Multi-Drug Resistant Organisms: MRSA Date of last positivie culture/infection: 12/30/18 MDRO Source:: MRSA URINE Past Surgical History: Appendectomy, Bowel Resection, Section, Cholecystectomy, Hysterectomy, Tonsillectomy Additional Past Surgical History / Comment(s): Chemo immobilizations, liver biopsies, paracentesis, bowel resection d/t diverticulitis/ileostomy, R rotator cuff repair, carpal tunnel release-laterality unknown. Past Anesthesia/Blood Transfusion Reactions: No Reported Reaction Past Psychological History: Anxiety, Depression Smoking Status: Former smoker Past Alcohol Use History: None Reported Past Drug Use History: None Reported - Past Family History Mother History Unknown: Yes Family Medical History: Congestive Heart Failure (CHF) General Exam Limitations: no limitations General appearance: alert, in no apparent distress Head exam: Present: atraumatic, normocephalic Eye exam: Present: normal appearance. Absent: scleral icterus, conjunctival injection ENT exam: Present: normal oropharynx Respiratory exam: Present: normal lung sounds bilaterally. Absent: respiratory distress, wheezes, rales, rhonchi, stridor Cardiovascular Exam: Present: regular rate, normal rhythm, normal heart sounds. Absent: systolic murmur, diastolic murmur, rubs, gallop GI/Abdominal exam: Present: soft. Absent: distended, tenderness, guarding, rebound, rigid, mass Extremities exam: Present: normal inspection, normal capillary refill. Absent: pedal edema, calf tenderness Back exam: Present: normal inspection. Absent: CVA tenderness (R), CVA tenderness (L) Neurological exam: Present: alert Skin exam: Present: warm, dry, intact, normal color. Absent: rash Course Vital Signs 03/23/19 03/23/19 03:36 06:40 Temperature 98.2 F 98.7 F Pulse Rate 62 58 L Respiratory 17 16 Rate Blood Pressure 114/65 118/61 O2 Sat by Pulse 98 97 Oximetry Medical Decision Making - Lab Data Result diagrams: 03/23/19 04:00 03/23/19 04:00 Lab Results 03/23/19 03/23/19 03/23/19 Range/Units 03:46 04:00 04:00 WBC 3.4 L (3.8-10.6) k/uL RBC 5.05 (3.80-5.40) m/uL Hgb 17.7 H D (11.4-16.0) gm/dL Hct 54.1 H (34.0-46.0) % MCV 107.1 H (80.0-100.0) fL MCH 35.1 H (25.0-35.0) pg MCHC 32.8 (31.0-37.0) g/dL RDW 15.6 H (11.5-15.5) % Plt Count 49 L (150-450) k/uL Neutrophils % 62 % Lymphocytes % 24 % Monocytes % 6 % Eosinophils % 4 % Basophils % 1 % Neutrophils # 2.1 (1.3-7.7) k/uL Lymphocytes # 0.8 L (1.0-4.8) k/uL Monocytes # 0.2 (0-1.0) k/uL Eosinophils # 0.1 (0-0.7) k/uL Basophils # 0.0 (0-0.2) k/uL Manual Slide Review Performed Macrocytosis Moderate Sodium 136 L (137-145) mmol/L Potassium 3.6 (3.5-5.1) mmol/L Chloride 104 (98-107) mmol/L Carbon Dioxide 24 (22-30) mmol/L Anion Gap 8 mmol/L BUN 18 H (7-17) mg/dL Creatinine 1.41 H (0.52-1.04) mg/dL Est GFR (CKD-EPI)AfAm 43 (>60 ml/min/1.73 sqM) Est GFR (CKD-EPI)NonAf 38 (>60 ml/min/1.73 sqM) Glucose 92 (74-99) mg/dL POC Glucose (mg/dL) 88 (75-99) mg/dL POC Glu Membership Sales Representative ID Kiran, Aida Plasma Lactic Acid Carlos (0.7-2.0) mmol/L Calcium 8.9 (8.4-10.2) mg/dL Total Bilirubin 2.0 H (0.2-1.3) mg/dL AST 56 H (14-36) U/L ALT 42 (9-52) U/L Alkaline Phosphatase 283 H (38-126) U/L Ammonia (<30) umol/L Troponin I (0.000-0.034) ng/mL Total Protein 6.9 (6.3-8.2) g/dL Albumin 3.2 L (3.5-5.0) g/dL 03/23/19 03/23/19 03/23/19 Range/Units 04:00 06:35 06:35 WBC (3.8-10.6) k/uL RBC (3.80-5.40) m/uL Hgb (11.4-16.0) gm/dL Hct (34.0-46.0) % MCV (80.0-100.0) fL MCH (25.0-35.0) pg MCHC (31.0-37.0) g/dL RDW (11.5-15.5) % Plt Count (150-450) k/uL Neutrophils % % Lymphocytes % % Monocytes % % Eosinophils % % Basophils % % Neutrophils # (1.3-7.7) k/uL Lymphocytes # (1.0-4.8) k/uL Monocytes # (0-1.0) k/uL Eosinophils # (0-0.7) k/uL Basophils # (0-0.2) k/uL Manual Slide Review Macrocytosis Sodium (137-145) mmol/L Potassium (3.5-5.1) mmol/L Chloride (98-107) mmol/L Carbon Dioxide (22-30) mmol/L Anion Gap mmol/L BUN (7-17) mg/dL Creatinine (0.52-1.04) mg/dL Est GFR (CKD-EPI)AfAm (>60 ml/min/1.73 sqM) Est GFR (CKD-EPI)NonAf (>60 ml/min/1.73 sqM) Glucose (74-99) mg/dL POC Glucose (mg/dL) (75-99) mg/dL POC Glu Membership Sales Representative ID Plasma Lactic Acid Carlos 2.3 H* (0.7-2.0) mmol/L Calcium (8.4-10.2) mg/dL Total Bilirubin (0.2-1.3) mg/dL AST (14-36) U/L ALT (9-52) U/L Alkaline Phosphatase (38-126) U/L Ammonia 205 H (<30) umol/L Troponin I 0.054 H* (0.000-0.034) ng/mL Total Protein (6.3-8.2) g/dL Albumin (3.5-5.0) g/dL - EKG Data -: EKG Interpreted by Me EKG shows normal: sinus rhythm (With PVC, rate 60 bpm), axis (Left axis deviation), intervals (NM interval 164 ms, normal QTC 488 ms, normal. QRS duration 130 ms, prolonged consistent with the right bundle branch block), QRS complexes (Right bundle-branch block), ST-T waves (Normal) Interpretation: LVH Disposition Clinical Impression: Hepatic encephalopathy Disposition: ADMITTED IP TO THIS HOSP Condition: Fair Is patient prescribed a controlled substance at d/c from ED?: No Referrals: Gilma Martinez MD [Primary Care Provider] - 1-2 days
[2019-03-23] MEDS ORDERED: NALOXONE 0.4 MG/ML 1 ML VIAL IV PRN (07:16)
[2019-03-23] MEDS ORDERED: LACTULOSE 20 GM/30 ML CUP PO ONE (07:16)
[2019-03-23] MEDS ORDERED: clonazePAM 0.5 MG TAB PO PRN (07:18)
[2019-03-23] MEDS: PANTOPRAZOLE 40 MG TABLET PO SCH (07:56)
[2019-03-23] MEDS: SODIUM CHLORIDE 0.9% 1,000 ML IV SCH (07:58)
[2019-03-23 08:31] LABS: Appearance,Urine Clear (Clear); Bilirubin,Urine Negative (Negative); Blood,Urine Negative (Negative); Color,Urine Yellow; Glucose,Urine (UA) Negative (Negative); Ketones,Urine Negative (Negative); Leukocyte Esterase,Urine Negative (Negative); Nitrite,Urine Negative (Negative); Protein,Urine Negative (Negative); Specific Gravity,Urine 1.007 (1.001-1.035); Urobilinogen,Urine <2.0 mg/dL (<2.0)
[2019-03-23] MEDS ORDERED: LEVOFLOXACIN 250 MG TAB PO SCH (09:00)
[2019-03-23] MEDS ORDERED: SPIRONOLACTONE 25 MG TAB PO SCH (09:00)
[2019-03-23 09:07] LABS: Glucose,Whole Blood 150 mg/dL (75-99)
[2019-03-23] MEDS: INSULIN NPH 300 UNIT/3 ML VIAL SQ SCH ×2 (10:10→20:41)
[2019-03-23] MEDS: ONDANSETRON 4 MG/2 ML VIAL IVP PRN (10:11)
[2019-03-23] MEDS: RIFAXIMIN 550 MG TABLET PO SCH ×2 (11:21→21:40)
[2019-03-23] MEDS: TORSEMIDE 20 MG TAB PO SCH (11:22)
[2019-03-23] MEDS: DICYCLOMINE 10 MG CAP PO SCH ×3 (11:22→21:40)
--- NOTE | 2019-03-23 11:34 | P.CONS ---
History of Present Illness - Reason for Consult Consult date: 03/23/19 Hepatic encephalopathy Requesting physician: Artemio Lea - Chief Complaint Elevated ammonia - History of Present Illness 73 year female with a history of hepatocellular carcinoma status post chemoembolization, underlying nonalcoholic liver cirrhosis, portal hypertension, hepatic encephalopathy,ascites/ paracentesis, diverticular disease with ileostomy placement, chronic abdominal pain, chronic kidney disease who presents to the hospital with a constellation of symptoms. The patient reports anxious and jittery was told her ammonia level was high. She is maintained on Xifaxan and lactulose. Denies hematemesis hematochezia or melena. Prior to admission patient states she was having frequent bowel movement activity in her ostomy. On presentation to the hospital she was found to have a ammonia level of 205. WBC 3.4, hemoglobin 17.7 and platelet count 49,000. Sodium 136. Potassium 3.6. BUN 18. Creatinine 1.4. Total bilirubin 2.0. AST 56. ALT 42. AP 283. Review of Systems REVIEW OF SYSTEMS: CONSTITUTIONAL: Denies any fevers, chills, weight change report weakness and shaking on presentation. CARDIOVASCULAR: Denies any chest pain, palpitations high or low blood pressures RESPIRATORY: Denies any shortness of breath, hemoptysis or cough. GENITOURINARY: No dysuria or hematuria. MUSCULOSKELETAL: No weakness reported. SKIN: Denies any new rashes or lesions, jaundice or pallor. PSYCHIATRIC: Denies any depression or anxiety. NEUROLOGY: Denies headache, denies any new focal deficits. EARS/NOSE/THROAT: No recent hearing change, congestion, nasal discharge or sore throat. EYES: No pain in eyes, discharge or change in vision. GASTROINTESTINAL: As per HPI. Past Medical History Past Medical History: Cancer, Diabetes Mellitus, GERD/Reflux, Hypertension, Liver Disease, Myocardial Infarction ([place]), Renal Disease Additional Past Medical History / Comment(s): Hepatocellular liver cancer with chemo immobilizations-last time being 2017, ascities with paracentesis's, nonalcoholic liver cirrhosis, chronic pancytopenia, chronic elevated ammonia levels, hepatic encephalopathy, chronic elevated LFTs, chronic abdominal pain, stomach ulcer, diverticular disease with ileostomy, IDDM type II, iron anemia, CKD stage III, nonsustained vtach, UTI Last Myocardial Infarction Date:: unk History of Any Multi-Drug Resistant Organisms: MRSA Year Discovered:: 12/30/18 MDRO Source:: MRSA URINE Past Surgical History: Appendectomy, Bowel Resection, Section, Cholecystectomy, Hysterectomy, Tonsillectomy Additional Past Surgical History / Comment(s): Chemo immobilizations, liver bio psies, paracentesis, bowel resection d/t diverticulitis/ileostomy, R rotator cuff repair, carpal tunnel release-laterality unknown. Past Anesthesia/Blood Transfusion Reactions: No Reported Reaction Smoking Status: Former smoker - Past Family History Mother History Unknown: Yes Family Medical History: Congestive Heart Failure (CHF) Additional Family Medical History / Comment(s): Mother is 94 yrs old. Father Family Medical History: Chest Pain / Angina Additional Family Medical History / Comment(s): Father is . Medications and Allergies Home Medications Medication Instructions Recorded Confirmed Type Dicyclomine [Bentyl] 10 mg PO TID 10/23/18 03/23/19 History Omeprazole [PriLOSEC] 20 mg PO BID 10/23/18 03/23/19 History Sucralfate [Carafate] 1 gm PO QID 10/23/18 03/23/19 History Insulin Regular, Human [NovoLIN R] 10 unit SQ AC-TID 10/24/18 03/23/19 History Spironolactone [Aldactone] 50 mg PO BID 30 Days #60 tab 12/21/18 03/23/19 Rx buPROPion SR [Wellbutrin SR] 150 mg PO DAILY #30 tablet.er 12/21/18 03/23/19 Rx Magnesium Oxide [William] 500 mg PO DAILY 12/30/18 03/23/19 History Torsemide [Demadex] 20 mg PO DAILY 30 Days #30 tab 01/09/19 03/23/19 Rx Cholecalciferol [Vitamin D3 (25 4,000 unit PO DAILY 01/16/19 03/23/19 History Mcg = 1000 Iu)] Ferrous Sulfate [Iron (65 MG 325 mg PO BID 01/31/19 03/23/19 History Elemental)] Insulin NPH [humuLIN N] 18 unit SQ BID vial 02/06/19 03/23/19 Rx Lactulose [Cephulac] 30 gm PO BID ml 02/06/19 03/23/19 Rx Rifaximin [Xifaxan] 550 mg PO BID tablet 02/06/19 03/23/19 Rx Metoprolol Tartrate [Lopressor] 12.5 mg PO BID #0 tab 03/06/19 03/23/19 Rx Morphine Sulfate ER [Ms Contin] 15 mg PO Q12HR 3 Days #6 tablet 03/06/19 03/23/19 Rx clonazePAM [KlonoPIN] 0.5 mg PO DAILY PRN #3 tab 03/06/19 03/23/19 Rx Allergies Allergy/AdvReac Type Severity Reaction Status Date / Time amlodipine Allergy Rash/Hives Verified 03/02/19 18:12 oxycodone Allergy Rash/Hives Verified 03/02/19 18:12 Penicillins Allergy Rash/Hives Verified 03/02/19 18:12 hydromorphone [From Dilaudid] AdvReac Mild tactile Verified 03/02/19 18:12 disturbance GREG Inhibitors AdvReac Cough Verified 03/02/19 18:12 sodium dodecyclbenzene Allergy Rash/Hives Uncoded 02/20/19 04:26 sulfonate Physical Exam Vitals: Vital Signs Temp Pulse Pulse Resp BP BP Pulse Ox 03/23/19 08:00 97.5 F L 58 L 24 118/66 100 03/23/19 07:59 98.7 F 58 L 19 110/62 98 03/23/19 06:40 98.7 F 58 L 16 118/61 97 03/23/19 03:36 98.2 F 62 17 114/65 98 Intake and Output 03/22/19 03/23/19 03/23/19 22:59 06:59 14:59 Other: Weight 90.718 kg On physical examination, patient appears comfortable in no apparent distress. HEAD: Normocephalic, atraumatic. EYES: No scleral icterus. No conjunctival injection. MOUTH: No lesions, tongue midline. NECK: Trachea midline, no gross abnormalities. CHEST: Decreased air entry in all lung simon. HEART: S1-S2 appreciated. ABDOMEN: Soft, obese with ostomy on the right side of her abdomen-appearing intact with good stool output. Bowel sounds are positive. No organomegaly. No guarding or rigidity. EXTREMITIES: Bilateral pedal edema. SKIN: No rashes, no jaundice. NEUROLOGIC: Alert and oriented x3. Mild Asterixis evident. Results CBC & Chem 7: 03/23/19 04:00 03/23/19 04:00 Labs: Abnormal Lab Results - Last 24 Hours (Table) 03/23/19 03/23/19 03/23/19 Range/Units 04:00 04:00 04:00 WBC 3.4 L (3.8-10.6) k/uL Hgb 17.7 H D (11.4-16.0) gm/dL Hct 54.1 H (34.0-46.0) % MCV 107.1 H (80.0-100.0) fL MCH 35.1 H (25.0-35.0) pg RDW 15.6 H (11.5-15.5) % Plt Count 49 L (150-450) k/uL Lymphocytes # 0.8 L (1.0-4.8) k/uL Sodium 136 L (137-145) mmol/L BUN 18 H (7-17) mg/dL Creatinine 1.41 H (0.52-1.04) mg/dL Plasma Lactic Acid Carlos (0.7-2.0) mmol/L Total Bilirubin 2.0 H (0.2-1.3) mg/dL AST 56 H (14-36) U/L Alkaline Phosphatase 283 H (38-126) U/L Ammonia (<30) umol/L Troponin I 0.054 H* (0.000-0.034) ng/mL Albumin 3.2 L (3.5-5.0) g/dL 03/23/19 03/23/19 Range/Units 06:35 06:35 WBC (3.8-10.6) k/uL Hgb (11.4-16.0) gm/dL Hct (34.0-46.0) % MCV (80.0-100.0) fL MCH (25.0-35.0) pg RDW (11.5-15.5) % Plt Count (150-450) k/uL Lymphocytes # (1.0-4.8) k/uL Sodium (137-145) mmol/L BUN (7-17) mg/dL Creatinine (0.52-1.04) mg/dL Plasma Lactic Acid Carlos 2.3 H* (0.7-2.0) mmol/L Total Bilirubin (0.2-1.3) mg/dL AST (14-36) U/L Alkaline Phosphatase (38-126) U/L Ammonia 205 H (<30) umol/L Troponin I (0.000-0.034) ng/mL Albumin (3.5-5.0) g/dL Assessment and Plan (1) Hepatic encephalopathy Narrative/Plan: 73-year-old with a complex medical history including cirrhosis of the liver with subsequent development of hepatocellular carcinoma for which she has received treatment in the past who presents to the hospital with complaints of anxiety elevated ammonia 205 previously maintained on Xifaxan and lactulose. She has had episodes of hepatic encephalopathy in the past and was taking lactulose therapy at home as prescribed. She reports thicker bowel movements from her ostomy may be indicative of dehydration as the cause of her worsened hepatic encephalopathy. The patient is currently receiving treatment with lactulose and Xifaxan therapy with evidence of mild asterixis noted on physical exam. Repeat serum ammonia pending. Current Visit: Yes Status: Acute Code(s): K72.90 - HEPATIC FAILURE, UNSPECIFIED WITHOUT COMA SNOMED Code(s): 23047526 (2) Cirrhosis of liver with ascites Current Visit: No Status: Acute Code(s): K74.60 - UNSPECIFIED CIRRHOSIS OF LIVER; R18.8 - OTHER ASCITES SNOMED Code(s): 45361415 (3) History of liver cancer Current Visit: No Status: Acute Code(s): Z85.05 - PERSONAL HISTORY OF MALIGNANT NEOPLASM OF LIVER SNOMED Code(s): 512694231 Plan: 1. Repeat ammonia pending. Daily CBC CMP PT/INR in ammonia. Low sodium diet. Continue with lactulose 30 g increased to 3 times daily and Xifaxan 550 mg twice daily titrate for the patient having 3-4 bowel movements. Check AFP previously less than 2.19 October 2018. Continue with diuretics and Bentyl for abdominal pain. Continue with symptomatic supportive measures. We'll continue to follow with you. Thank you for this kind referral and the opportunity to participate in the care of your patient. This consultation was discussed with Dr. Francois. The impression and plan of care have been directed as dictated.
[2019-03-23] MEDS: SUCRALFATE 1 GM TAB PO SCH ×4 (11:38→21:44)
[2019-03-23] MEDS ORDERED: LACTULOSE 20 GM/30 ML CUP PO SCH (12:00)
[2019-03-23 12:16] LABS: Glucose,Whole Blood 156 mg/dL (75-99)
[2019-03-23] MEDS: INSULIN REGULAR 100 UNIT/ML VIAL SQ SCH ×2 (12:37→17:32)
[2019-03-23] MEDS: CHOLECALCIFEROL 1,000 UNIT TAB PO SCH (13:03)
[2019-03-23] MEDS: MAGNESIUM OXIDE 400 MG TAB PO SCH (13:03)
[2019-03-23] MEDS: FERROUS SULFATE 325 MG TAB PO SCH ×2 (13:03→17:32)
[2019-03-23] MEDS: METOPROLOL TARTRATE 12.5 MG TAB PO SCH ×2 (13:03→20:39)
[2019-03-23] MEDS: buPROPion SR 150 MG TABLET.ER PO SCH (13:03)
[2019-03-23] MEDS: MORPHINE SULFATE ER 15 MG TABLET PO SCH ×2 (13:04→17:37)
--- NOTE | 2019-03-23 13:55 | P.HPIM ---
History of Present Illness H&P Date: 03/23/19 Chief Complaint: Not feeling right This is a 73-year-old female with a known past medical history of nonalcoholic liver cirrhosis, hepatocellular carcinoma status post chemoembolization, chronic kidney disease stage III, chronic abdominal pain, diverticulitis with ileostomy placement, insulin-dependent diabetes mellitus, iron deficiency anemia and depression. Patient presents to the emergency room with complaints of feeling jittery and just not right. She had an elevated ammonia level of 205. Lactulose was increased to 3 times a day and restarted on her Xifaxan. Ap parently patient does not take Xifaxan at home due to the $600 cost. Her creatinine is elevated at 1.41 lactic acid was elevated at 2.3 and ammonia 205. Troponin 0.054. Patient is complaining of her usual chronic abdominal discomfort. Denies any vomiting has had some dry heaves and nausea. Reports having multiple stools throughout the day with the lactulose. Greater than 3-5 bowel movement today. Denies any burning with urination. Denies chest pain Review of Systems Please refer to HPI otherwise unremarkable Past Medical History Past Medical History: Cancer, Diabetes Mellitus, GERD/Reflux, Hypertension, Liver Disease, Myocardial Infarction ([place]), Renal Disease Additional Past Medical History / Comment(s): Hepatocellular liver cancer with chemo immobilizations-last time being 2017, ascities with paracentesis's, nonalcoholic liver cirrhosis, chronic pancytopenia, chronic elevated ammonia l evels, hepatic encephalopathy, chronic elevated LFTs, chronic abdominal pain, stomach ulcer, diverticular disease with ileostomy, IDDM type II, iron anemia, CKD stage III, nonsustained vtach, UTI Last Myocardial Infarction Date:: unk History of Any Multi-Drug Resistant Organisms: MRSA Date of last positivie culture/infection: 12/30/18 MDRO Source:: MRSA URINE Past Surgical History: Appendectomy, Bowel Resection, Section, Cholecystectomy, Hysterectomy, Tonsillectomy Additional Past Surgical History / Comment(s): Chemo immobilizations, liver biopsies, paracentesis, bowel resection d/t diverticulitis/ileostomy, R rotator cuff repair, carpal tunnel release-laterality unknown. Past Anesthesia/Blood Transfusion Reactions: No Reported Reaction Smoking Status: Former smoker - Past Family History Mother History Unknown: Yes Family Medical History: Congestive Heart Failure (CHF) Additional Family Medical History / Comment(s): Mother is 94 yrs old. Father Family Medical History: Chest Pain / Angina Additional Family Medical History / Comment(s): Father is . Medications and Allergies Home Medications Medication Instructions Recorded Confirmed Type Dicyclomine [Bentyl] 10 mg PO TID 10/23/18 03/23/19 History Omeprazole [PriLOSEC] 20 mg PO BID 10/23/18 03/23/19 History Sucralfate [Carafate] 1 gm PO QID 10/23/18 03/23/19 History Insulin Regular, Human [NovoLIN R] 10 unit SQ AC-TID 10/24/18 03/23/19 History Spironolactone [Aldactone] 50 mg PO BID 30 Days #60 tab 12/21/18 03/23/19 Rx buPROPion SR [Wellbutrin SR] 150 mg PO DAILY #30 tablet.er 12/21/18 03/23/19 Rx Magnesium Oxide [William] 500 mg PO DAILY 12/30/18 03/23/19 History Torsemide [Demadex] 20 mg PO DAILY 30 Days #30 tab 01/09/19 03/23/19 Rx Cholecalciferol [Vitamin D3 (25 4,000 unit PO DAILY 01/16/19 03/23/19 History Mcg = 1000 Iu)] Ferrous Sulfate [Iron (65 MG 325 mg PO BID 01/31/19 03/23/19 History Elemental)] Insulin NPH [humuLIN N] 18 unit SQ BID vial 02/06/19 03/23/19 Rx Lactulose [Cephulac] 30 gm PO BID ml 02/06/19 03/23/19 Rx Rifaximin [Xifaxan] 550 mg PO BID tablet 02/06/19 03/23/19 Rx Metoprolol Tartrate [Lopressor] 12.5 mg PO BID #0 tab 03/06/19 03/23/19 Rx Morphine Sulfate ER [Ms Contin] 15 mg PO Q12HR 3 Days #6 tablet 03/06/19 03/23/19 Rx clonazePAM [KlonoPIN] 0.5 mg PO DAILY PRN #3 tab 03/06/19 03/23/19 Rx Allergies Allergy/AdvReac Type Severity Reaction Status Date / Time amlodipine Allergy Rash/Hives Verified 03/02/19 18:12 oxycodone Allergy Rash/Hives Verified 03/02/19 18:12 Penicillins Allergy Rash/Hives Verified 03/02/19 18:12 hydromorphone [From Dilaudid] AdvReac Mild tactile Verified 03/02/19 18:12 disturbance GREG Inhibitors AdvReac Cough Verified 03/02/19 18:12 sodium dodecyclbenzene Allergy Rash/Hives Uncoded 02/20/19 04:26 sulfonate Physical Exam Vitals: Vital Signs Temp Pulse Pulse Resp BP BP Pulse Ox 03/23/19 12:00 98.3 F 57 L 16 114/66 100 03/23/19 08:30 97.5 F L 58 L 24 118/66 100 03/23/19 07:59 98.7 F 58 L 19 110/62 98 03/23/19 06:40 98.7 F 58 L 16 118/61 97 03/23/19 03:36 98.2 F 62 17 114/65 98 Intake and Output 03/22/19 03/23/19 03/23/19 22:59 06:59 14:59 Other: Voiding Method Toilet # Voids 3 # Bowel Movements 3 Weight 90.718 kg 87 kg Head normocephalic Neck supple Lungs clear to auscultation bilaterally no wheezing or crackles Heart regular rate and rhythm S1-S2, no rub or gallop Abdomen is soft nontender nondistended positive bowel sounds no hepato splenomegaly Extremities no edema Neuro alert and orientated to 3 Results CBC & Chem 7: 03/23/19 04:00 03/23/19 04:00 Labs: Abnormal Lab Results - Last 24 Hours (Table) 03/23/19 03/23/19 03/23/19 Range/Units 04:00 04:00 04:00 WBC 3.4 L (3.8-10.6) k/uL Hgb 17.7 H D (11.4-16.0) gm/dL Hct 54.1 H (34.0-46.0) % MCV 107.1 H (80.0-100.0) fL MCH 35.1 H (25.0-35.0) pg RDW 15.6 H (11.5-15.5) % Plt Count 49 L (150-450) k/uL Lymphocytes # 0.8 L (1.0-4.8) k/uL Sodium 136 L (137-145) mmol/L BUN 18 H (7-17) mg/dL Creatinine 1.41 H (0.52-1.04) mg/dL POC Glucose (mg/dL) (75-99) mg/dL Plasma Lactic Acid Carlos (0.7-2.0) mmol/L Total Bilirubin 2.0 H (0.2-1.3) mg/dL AST 56 H (14-36) U/L Alkaline Phosphatase 283 H (38-126) U/L Ammonia (<30) umol/L Troponin I 0.054 H* (0.000-0.034) ng/mL Albumin 3.2 L (3.5-5.0) g/dL 03/23/19 03/23/19 03/23/19 Range/Units 06:35 06:35 09:05 WBC (3.8-10.6) k/uL Hgb (11.4-16.0) gm/dL Hct (34.0-46.0) % MCV (80.0-100.0) fL MCH (25.0-35.0) pg RDW (11.5-15.5) % Plt Count (150-450) k/uL Lymphocytes # (1.0-4.8) k/uL Sodium (137-145) mmol/L BUN (7-17) mg/dL Creatinine (0.52-1.04) mg/dL POC Glucose (mg/dL) 150 H (75-99) mg/dL Plasma Lactic Acid Carlos 2.3 H* (0.7-2.0) mmol/L Total Bilirubin (0.2-1.3) mg/dL AST (14-36) U/L Alkaline Phosphatase (38-126) U/L Ammonia 205 H (<30) umol/L Troponin I (0.000-0.034) ng/mL Albumin (3.5-5.0) g/dL 03/23/19 03/23/19 Range/Units 11:10 12:12 WBC (3.8-10.6) k/uL Hgb (11.4-16.0) gm/dL Hct (34.0-46.0) % MCV (80.0-100.0) fL MCH (25.0-35.0) pg RDW (11.5-15.5) % Plt Count (150-450) k/uL Lymphocytes # (1.0-4.8) k/uL Sodium (137-145) mmol/L BUN (7-17) mg/dL Creatinine (0.52-1.04) mg/dL POC Glucose (mg/dL) 156 H (75-99) mg/dL Plasma Lactic Acid Carlos (0.7-2.0) mmol/L Total Bilirubin (0.2-1.3) mg/dL AST (14-36) U/L Alkaline Phosphatase (38-126) U/L Ammonia 46 H (<30) umol/L Troponin I (0.000-0.034) ng/mL Albumin (3.5-5.0) g/dL Thrombosis Risk Factor Assmnt - Choose All That Apply Any of the Below Risk Factors Present?: Yes Each Factor Represents 1 point: Obesity (BMI >25) Other Risk Factors: Yes Each Risk Factor Represents 2 Points: Age 61-74 years, Malignancy Other congenital or acquired thrombophilia - If yes, enter type in comment: No Thrombosis Risk Factor Assessment Total Risk Factor Score: 5 Thrombosis Risk Factor Assessment Level: High Risk Assessment and Plan Assessment: 1. Hepatic encephalopathy: Ammonia level CCV. Ammonia level has come down to 46. Lactulose increased to 3 times a day per GI service and Xifaxan restarted. Patient has not been taking the Xifaxan at home due to cost 2. Acute kidney injury: Creatinine 1.4. Likely related to dehydration and diuretics. Patient can become fluid overloaded very easily. Decrease Aldactone to 1 day at this time. Keep fluids at KVO. We'll monitor 3. Elevated lactic acid of 2.3 has normalized to 1.9 with IV fluids. Likely related to dehydration 4. Mildly elevated troponin with no chest pain. Likely related to elevated renal function. 5. History of nonalcoholic liver cirrhosis with subsequent development of h epatocellular carcinoma status post chemoembolization 6. Chronic kidney disease stage III 7. History of chronic abdominal pain due to recurring abdominal ascites 8. History of diverticulitis with ileostomy placement 9. Chronic pancytopenia due to liver cancer secondary to her chronic liver c irrhosis 10. Insulin-dependent diabetes mellitus 11. Iron deficiency anemia continue iron supplement 12. Chronic elevated LFTs due to chronic liver malignancy GI prophylaxis Protonix and DVT prophylaxis SCDs due to patient's thrombocytopenia Time with Patient: Greater than 30 (Greater than 50% of the total time spent in counseling and coordination of care.I performed an examination of the patient and discussed their management with the physician Clinical Psychology Professor. I have reviewed the Physician Clinical Psychology Professor's notes and agree with the documented findings and plan of care)
[2019-03-23] MEDS: LACTULOSE 20 GM/30 ML CUP PO SCH ×2 (16:01→21:43)
[2019-03-23 16:56] LABS: Glucose,Whole Blood 177 mg/dL (75-99)
[2019-03-23 20:39] LABS: Glucose,Whole Blood 115 mg/dL (75-99)
[2019-03-24 06:24] LABS: Glucose,Whole Blood 263 mg/dL (75-99)
[2019-03-24] MEDS: PANTOPRAZOLE 40 MG TABLET PO SCH (06:58)
[2019-03-24] MEDS: FERROUS SULFATE 325 MG TAB PO SCH ×2 (06:58→17:21)
[2019-03-24] MEDS: MORPHINE SULFATE ER 15 MG TABLET PO SCH ×2 (06:58→21:07)
[2019-03-24] MEDS: INSULIN REGULAR 100 UNIT/ML VIAL SQ SCH ×3 (06:59→17:21)
[2019-03-24] MEDS: SODIUM CHLORIDE 0.9% 1,000 ML IV SCH (07:00)
[2019-03-24 07:54] LABS: INR 1.3 (<1.2); Prothrombin Time 13.7 sec (9.0-12.0)
[2019-03-24 07:57] LABS: Calcium 8.9 mg/dL (8.4-10.2); Potassium 4.5 mmol/L (3.5-5.1); Total Bilirubin 2.1 mg/dL (0.2-1.3); Total Protein 6.4 g/dL (6.3-8.2)
[2019-03-24] MEDS: CHOLECALCIFEROL 1,000 UNIT TAB PO SCH (08:20)
[2019-03-24] MEDS: SUCRALFATE 1 GM TAB PO SCH ×4 (08:20→21:07)
[2019-03-24] MEDS: METOPROLOL TARTRATE 12.5 MG TAB PO SCH ×2 (08:20→21:07)
[2019-03-24] MEDS: LACTULOSE 20 GM/30 ML CUP PO SCH ×3 (08:20→21:06)
[2019-03-24] MEDS: DICYCLOMINE 10 MG CAP PO SCH ×3 (08:20→21:07)
[2019-03-24] MEDS: SPIRONOLACTONE 25 MG TAB PO SCH (08:21)
[2019-03-24] MEDS: buPROPion SR 150 MG TABLET.ER PO SCH (08:21)
[2019-03-24] MEDS: MAGNESIUM OXIDE 400 MG TAB PO SCH (08:21)
[2019-03-24] MEDS: RIFAXIMIN 550 MG TABLET PO SCH ×2 (08:22→21:07)
[2019-03-24] MEDS: TORSEMIDE 20 MG TAB PO SCH (08:22)
[2019-03-24] MEDS: INSULIN NPH 300 UNIT/3 ML VIAL SQ SCH ×2 (08:22→21:08)
[2019-03-24 08:24] LABS: Basophils % (A) 1 %; Eosinophils # (A) 0.2 k/uL (0-0.7); Eosinophils % (A) 4 %; Lymphocytes # (A) 1.3 k/uL (1.0-4.8); Lymphocytes % (A) 27 %; MCHC 32.3 g/dL (31.0-37.0); MCV 108.4 fL (80.0-100.0); Macrocytosis Marked; Mean Platelet Volume 9.8; Monocytes # (A) 0.4 k/uL (0-1.0); Monocytes % (A) 7 %; Neutrophils # (A) 2.9 k/uL (1.3-7.7); Neutrophils % (A) 59 %; RDW 15.4 % (11.5-15.5)
[2019-03-24 08:35] LABS: Platelet Count 72 k/uL (150-450)
[2019-03-24 08:36] LABS: HGB 12.6 gm/dL (11.4-16.0)
[2019-03-24] MEDS: ONDANSETRON 4 MG/2 ML VIAL IVP PRN (11:19)
[2019-03-24 11:24] LABS: Glucose,Whole Blood 87 mg/dL (75-99)
--- NOTE | 2019-03-24 12:13 | P.PN ---
Subjective Progress Note Date: 03/24/19 This is a 73-year-old female with a known past medical history of nonalcoholic liver cirrhosis, hepatocellular carcinoma status post chemoembolization, chronic kidney disease stage III, chronic abdominal pain, diverticulitis with ileostomy placement, insulin-dependent diabetes mellitus, iron deficiency anemia and depression. Patient presents to the emergency room with complaints of feeling jittery and just not right. She had an elevated ammonia level of 205. Lactulose was increased to 3 times a day and restarted on her Xifaxan. Apparently patient does not take Xifaxan at home due to the $600 cost. Her creatinine is elevated at 1.41 lactic acid was elevated at 2.3 and ammonia 205. Troponin 0.054. Patient is complaining of her usual chronic abdominal discomfort. Denies any vomiting has had some dry heaves and nausea. Reports having multiple stools throughout the day with the lactulose. Greater than 3-5 bowel movement today. Denies any burning with urination. Denies chest pain 03-24-19 Patient's ammonia level is 16. She is complaining of nausea. She is having multiple stools. Does not feel ready for discharge today Objective - Vital Signs Vital signs: Vital Signs Temp 99.1 F 03/24/19 12:00 Pulse 51 L 03/24/19 12:00 Resp 18 03/24/19 12:00 BP 121/58 03/24/19 12:00 Pulse Ox 100 03/24/19 12:00 Intake & Output 03/23/19 03/24/19 03/24/19 18:59 06:59 18:59 Intake Total 300 820 440 Balance 300 820 440 Weight 87 kg 87.6 kg Intake: Intake, IV Titration 220 Amount Sodium Chloride 0.9% 1, 220 000 ml @ 20 mls/hr IV . Q24H [facility] Rx#:[id number] Oral 300 440 Blood Product 600 Other: Voiding Method Toilet Toilet Toilet # Voids 1 3 # Bowel Movements 1 4 - Exam Head normocephalic Neck supple Lungs clear to auscultation bilaterally no wheezing or crackles Heart regular rate and rhythm S1-S2, no rub or gallop Abdomen is soft nontender nondistended positive bowel sounds no hepatosplenomegaly Extremities no edema Neuro alert and orientated to 3 - Labs CBC & Chem 7: 03/24/19 07:03 03/24/19 07:03 Labs: Abnormal Lab Results - Last 24 Hours (Table) 03/23/19 03/23/19 03/23/19 Range/Units 12:12 16:54 20:38 RBC (3.80-5.40) m/uL MCV (80.0-100.0) fL Plt Count (150-450) k/uL Macrocytosis PT (9.0-12.0) sec INR (<1.2) BUN (7-17) mg/dL Creatinine (0.52-1.04) mg/dL Glucose (74-99) mg/dL POC Glucose (mg/dL) 156 H 177 H 115 H (75-99) mg/dL Total Bilirubin (0.2-1.3) mg/dL AST (14-36) U/L Alkaline Phosphatase (38-126) U/L Albumin (3.5-5.0) g/dL 03/24/19 03/24/19 03/24/19 Range/Units 06:23 07:03 07:03 RBC 3.60 L (3.80-5.40) m/uL MCV 108.4 H (80.0-100.0) fL Plt Count 72 L (150-450) k/uL Macrocytosis Marked A PT 13.7 H (9.0-12.0) sec INR 1.3 H (<1.2) BUN (7-17) mg/dL Creatinine (0.52-1.04) mg/dL Glucose (74-99) mg/dL POC Glucose (mg/dL) 263 H (75-99) mg/dL Total Bilirubin (0.2-1.3) mg/dL AST (14-36) U/L Alkaline Phosphatase (38-126) U/L Albumin (3.5-5.0) g/dL 03/24/19 Range/Units 07:03 RBC (3.80-5.40) m/uL MCV (80.0-100.0) fL Plt Count (150-450) k/uL Macrocytosis PT (9.0-12.0) sec INR (<1.2) BUN 25 H (7-17) mg/dL Creatinine 1.43 H (0.52-1.04) mg/dL Glucose 201 H (74-99) mg/dL POC Glucose (mg/dL) (75-99) mg/dL Total Bilirubin 2.1 H (0.2-1.3) mg/dL AST 47 H (14-36) U/L Alkaline Phosphatase 236 H (38-126) U/L Albumin 3.0 L (3.5-5.0) g/dL Assessment and Plan Assessment: 1. Hepatic encephalopathy: Ammonia level 205. Ammonia level has come down to 19. Lactulose increased to 3 times a day per GI service and Xifaxan restarted. Patient has not been taking the Xifaxan at home due to cost 2. Acute kidney injury: Creatinine 1.43. Likely related to dehydration and diuretics. Patient can become fluid overloaded very easily. Decrease Aldactone to 1 day at this time. Keep fluids at KVO. We'll monitor 3. Elevated lactic acid of 2.3 has normalized to 1.9 with IV fluids. Likely related to dehydration 4. Mildly elevated troponin with no chest pain. Likely related to elevated renal function. 5. History of nonalcoholic liver cirrhosis with subsequent development of hepatocellular carcinoma status post chemoembolization 6. Chronic kidney disease stage III 7. History of chronic abdominal pain due to recurring abdominal ascites 8. History of diverticulitis with ileostomy placement 9. Chronic pancytopenia due to liver cancer secondary to her chronic liver cirrhosis 10. Insulin-dependent diabetes mellitus. Elevated BS this AM because patient ate ice cream last pm. BS at 11:00 is 87. continue current insulin 11. Iron deficiency anemia continue iron supplement 12. Chronic elevated LFTs due to chronic liver malignancy GI prophylaxis Protonix and DVT prophylaxis SCDs due to patient's thrombocytope vanessa anticipate discharge tomorrow I performed an examination of the patient and discussed their management with the physician Curriculum Developer. I have reviewed the Physician Curriculum Developer's notes and agree with the documented findings and plan of care)
--- NOTE | 2019-03-24 13:10 | P.PN ---
Subjective Progress Note Date: 03/24/19 Principal diagnosis: Hepatic encephalopathy Ammonia improved normalized 16. Passing bowel movement through ostomy. Patient has not been taking Xifaxan states she can't afford it. Receiving lactulose. Afebrile. Objective - Vital Signs Vital signs: Vital Signs Temp 99.1 F 03/24/19 12:00 Pulse 51 L 03/24/19 12:00 Resp 18 03/24/19 12:00 BP 121/58 03/24/19 12:00 Pulse Ox 100 03/24/19 12:00 Intake & Output 03/23/19 03/24/19 03/24/19 18:59 06:59 18:59 Intake Total 300 820 440 Balance 300 820 440 Weight 87 kg 87.6 kg Intake: Intake, IV Titration 220 Amount Sodium Chloride 0.9% 1, 220 000 ml @ 20 mls/hr IV . Q24H PENDING SALE TO [facility] Rx#:[id number] Oral 300 440 Blood Product 600 Other: Voiding Method Toilet Toilet Toilet # Voids 1 3 # Bowel Movements 1 4 - Exam General appearance: The patient is alert, oriented, in no acute distress. HET: Head is normocephalic and atraumatic. Pupils are equal and reactive. Oropharynx is clear without lesions. Neck: Supple without lymphadenopathy. Trachea midline. Heart: S1 S2. Regular rate and rhythm. Lungs: No crackles or wheezes are heard. Abdomen: Soft, nontender, nondistended with bowel sounds. No peritoneal signs. Ostomy with yellow stool. No palpable organomegaly or masses. Extremities: Normal skin color and turgor. No cyanosis, rash, ulceration, clubbing, or edema. Radial and pedal pulses are 2/4 bilaterally. Neurological: No focal deficits. Strength and sensation are grossly intact. No asterixis. - Labs CBC & Chem 7: 03/24/19 07:03 03/24/19 07:03 Labs: Abnormal Lab Results - Last 24 Hours (Table) 03/23/19 03/23/19 03/24/19 Range/Units 16:54 20:38 06:23 RBC (3.80-5.40) m/uL MCV (80.0-100.0) fL Plt Count (150-450) k/uL Macrocytosis PT (9.0-12.0) sec INR (<1.2) BUN (7-17) mg/dL Creatinine (0.52-1.04) mg/dL Glucose (74-99) mg/dL POC Glucose (mg/dL) 177 H 115 H 263 H (75-99) mg/dL Total Bilirubin (0.2-1.3) mg/dL AST (14-36) U/L Alkaline Phosphatase (38-126) U/L Albumin (3.5-5.0) g/dL 03/24/19 03/24/19 03/24/19 Range/Units 07:03 07:03 07:03 RBC 3.60 L (3.80-5.40) m/uL MCV 108.4 H (80.0-100.0) fL Plt Count 72 L (150-450) k/uL Macrocytosis Marked A PT 13.7 H (9.0-12.0) sec INR 1.3 H (<1.2) BUN 25 H (7-17) mg/dL Creatinine 1.43 H (0.52-1.04) mg/dL Glucose 201 H (74-99) mg/dL POC Glucose (mg/dL) (75-99) mg/dL Total Bilirubin 2.1 H (0.2-1.3) mg/dL AST 47 H (14-36) U/L Alkaline Phosphatase 236 H (38-126) U/L Albumin 3.0 L (3.5-5.0) g/dL Assessment and Plan (1) Hepatic encephalopathy Narrative/Plan: 73-year-old with a complex medical history including cirrhosis of the liver with subsequent development of hepatocellular carcinoma for which she has received treatment in the past who presents to the hospital with complaints of anxiety elevated ammonia 205 previously maintained on Xifaxan and lactulose. She has had episodes of hepatic encephalopathy in the past and was taking lactulose therapy at home as prescribed. Dehydration was thought to be the reason for her acute hepatic encephalopathy however patient states cannot afford Xifaxan and was not taking it prior to admission which explains why her serum ammonia level worsened. The patient is currently receiving treatment with lactulose and Xifaxan therapy with evidence of mild asterixis noted on physical exam. Repeat serum ammonia improved. Current Visit: Yes Status: Acute Code(s): K72.90 - HEPATIC FAILURE, UNSPECIFIED WITHOUT COMA SNOMED Code(s): 90144809 (2) Cirrhosis of liver with ascites Current Visit: No Status: Acute Code(s): K74.60 - UNSPECIFIED CIRRHOSIS OF LIVER; R18.8 - OTHER ASCITES SNOMED Code(s): 00718051 (3) History of liver cancer Current Visit: No Status: Acute Code(s): Z85.05 - PERSONAL HISTORY OF MALIGNANT NEOPLASM OF LIVER SNOMED Code(s): 264293642 Plan: 1. Daily CBC CMP PT/INR and ammonia. Low sodium diet. Continue with lactulose 30 g 3 times daily and Xifaxan 550 mg twice daily titrate for the patient having 3-4 bowel movements. AFP within normal limits 2.5 unchanged from October 2018. Continue with diuretics and Bentyl for abdominal pain. Continue with symptomatic supportive measures. Return to office in 2-3 weeks for reevaluation. We'll continue to follow with you. If patient is not able to afford Xifaxan on discharge recommend lactulose 30 g 4 times a day. Assessment and plan a care discussed with Dr. Francois
[2019-03-24 16:11] LABS: Glucose,Whole Blood 156 mg/dL (75-99)
[2019-03-24 20:53] LABS: Glucose,Whole Blood 193 mg/dL (75-99)
[2019-03-25] MEDS: SODIUM CHLORIDE 0.9% 1,000 ML IV SCH (05:32)
[2019-03-25 06:08] LABS: Glucose,Whole Blood 136 mg/dL (75-99)
[2019-03-25 06:12] LABS: Basophils % (A) 1 %; Eosinophils # (A) 0.3 k/uL (0-0.7); Eosinophils % (A) 5 %; HCT 42.5 % (34.0-46.0); HGB 13.7 gm/dL (11.4-16.0); Lymphocytes # (A) 1.7 k/uL (1.0-4.8); Lymphocytes % (A) 28 %; MCH 34.3 pg (25.0-35.0); MCHC 32.2 g/dL (31.0-37.0); MCV 106.6 fL (80.0-100.0); Macrocytosis Moderate; Mean Platelet Volume 9.6; Monocytes # (A) 0.5 k/uL (0-1.0); Monocytes % (A) 7 %; Neutrophils # (A) 3.5 k/uL (1.3-7.7); Neutrophils % (A) 57 %; RBC 3.98 m/uL (3.80-5.40); RDW 15.3 % (11.5-15.5); WBC 6.1 k/uL (3.8-10.6)
[2019-03-25 06:19] LABS: Platelet Count 75 k/uL (150-450)
[2019-03-25 06:22] LABS: Albumin 3.3 g/dL (3.5-5.0); Calcium 9.1 mg/dL (8.4-10.2); Total Bilirubin 1.9 mg/dL (0.2-1.3); Total Protein 7.1 g/dL (6.3-8.2)
[2019-03-25] MEDS: PANTOPRAZOLE 40 MG TABLET PO SCH (06:33)
[2019-03-25] MEDS: FERROUS SULFATE 325 MG TAB PO SCH ×2 (06:33→17:41)
[2019-03-25] MEDS: INSULIN REGULAR 100 UNIT/ML VIAL SQ SCH ×3 (07:56→17:41)
[2019-03-25] MEDS: LACTULOSE 20 GM/30 ML CUP PO SCH ×3 (07:56→21:24)
[2019-03-25] MEDS: CHOLECALCIFEROL 1,000 UNIT TAB PO SCH (07:57)
[2019-03-25] MEDS: RIFAXIMIN 550 MG TABLET PO SCH ×2 (07:57→22:21)
[2019-03-25] MEDS: MORPHINE SULFATE ER 15 MG TABLET PO SCH ×2 (07:58→21:25)
[2019-03-25] MEDS: buPROPion SR 150 MG TABLET.ER PO SCH (07:58)
[2019-03-25] MEDS: SUCRALFATE 1 GM TAB PO SCH ×4 (07:58→21:25)
[2019-03-25] MEDS: DICYCLOMINE 10 MG CAP PO SCH ×3 (07:59→21:27)
[2019-03-25] MEDS: TORSEMIDE 20 MG TAB PO SCH (07:59)
[2019-03-25] MEDS: SPIRONOLACTONE 25 MG TAB PO SCH (07:59)
[2019-03-25] MEDS: METOPROLOL TARTRATE 12.5 MG TAB PO SCH ×2 (07:59→21:27)
[2019-03-25] MEDS: MAGNESIUM OXIDE 400 MG TAB PO SCH (07:59)
[2019-03-25] MEDS: INSULIN NPH 300 UNIT/3 ML VIAL SQ SCH ×2 (09:06→21:25)
[2019-03-25 11:30] LABS: Glucose,Whole Blood 271 mg/dL (75-99)
--- NOTE | 2019-03-25 13:49 | PN ---
PROGRESS NOTE DATE OF SERVICE: 03/25/2019 Patient is a 73-year-old pleasant white female with history of nonalcoholic fatty liver disease with cirrhosis of the liver complicated by hepatocellular carcinoma for which she underwent chemoembolization 3 different sessions at [facility] in the last 6 months. She was admitted to the hospital with hepatic encephalopathy and altered mental status. She is doing much better today. She is very awake and alert, has multiple bowel movements in the ileostomy bag. She has been receiving oral Xifaxan 550 mg twice daily. She complains of some nausea but no emesis. Has some vague abdominal discomfort. PHYSICAL EXAMINATION: On physical examination, she appears comfortable, in no apparent distress. Vital signs are stable. Blood pressure is 92/52, pulse rate 54, temperature 98.6. HEENT examination unremarkable. Conjunctivae pink. Sclerae anicteric. Oral cavity no lesions. NECK: No JVD or lymph node enlargement. Chest was clear to auscultation. HEART: Regular rate and rhythm. ABDOMEN: Soft. Bowel sounds are positive. Ileostomy in place. There was soft to liquid stool noted in the bag. No blood noted. EXTREMITIES: No pedal edema. SKIN: No rashes. NEURO: Alert and oriented x3. No focal deficits. LABS: Labs from today, WBC 6.1, hemoglobin 12.7, platelets at 75,000. Total bilirubin is 1.9, AST 67, ALT 28, alkaline phosphatase 282, and ammonia level was 117. Yesterday it was normal at 16. IMPRESSION: 1. Hepatic encephalopathy. Clinically, she has improved. However, ammonia level has gotten worse. Serum ammonia today is 117. Presently on oral Xifaxan 550 mg twice daily as well as oral lactulose 3 times daily and having multiple bowel movements. 2. Cirrhosis of the liver related to nonalcoholic fatty liver disease, which appears to be with gradual decompensation. 3. Hepatocellular carcinoma diagnosed 6 months ago, status post chemoembolization at [facility], the last one was about 2 months ago. 4. Nausea, but no emesis. RECOMMENDATIONS: 1. Continue with oral Xifaxan and oral lactulose. 2. Antiemetics as needed. 3. Repeat ammonia level tomorrow. 4. Bentyl as needed for abdominal pain. 5. We will follow the patient closely during her hospital stay. Thank you for this consultation. MMODL / IJN: [id number] /
--- NOTE | 2019-03-25 14:10 | P.PN ---
Subjective Progress Note Date: 03/25/19 This is a 73-year-old female with a known past medical history of nonalcoholic liver cirrhosis, hepatocellular carcinoma status post chemoembolization, chronic kidney disease stage III, chronic abdominal pain, diverticulitis with ileostomy placement, insulin-dependent diabetes mellitus, iron deficiency anemia and depression. Patient presents to the emergency room with complaints of feeling jittery and just not right. She had an elevated ammonia level of 205. Lactulose was increased to 3 times a day and restarted on her Xifaxan. Apparently patient does not take Xifaxan at home due to the $600 cost. Her creatinine is elevated at 1.41 lactic acid was elevated at 2.3 and ammonia 205. Troponin 0.054. Patient is complaining of her usual chronic abdominal discomfort. Denies any vomiting has had some dry heaves and nausea. Reports having multiple stools throughout the day with the lactulose. Greater than 3-5 bowel movement today. Denies any burning with urination. Denies chest pain 03-24-19 Patient's ammonia level is 16. She is complaining of nausea. She is having multiple stools. Does not feel ready for discharge today On 03/25/2019 patient was seen and examined on the medical floor she is alert and oriented 3 she is complaining of severe nausea and abdominal discomfort and poor appetite today, her ammonia level is up again at 117 alkaline phosphatase elevated at 282 and AST is elevated at 67 bilirubin is elevated at 1.9. Patient is not ready for discharge today Objective - Vital Signs Vital signs: Vital Signs Temp 98.0 F 03/25/19 08:00 Pulse 55 L 03/25/19 12:00 Resp 18 03/25/19 12:00 BP 115/56 03/25/19 12:00 Pulse Ox 98 03/25/19 12:00 Intake & Output 03/24/19 03/25/19 03/25/19 18:59 06:59 18:59 Intake Total 1200 500 540 Balance 1200 500 540 Weight 88 kg 87.5 kg Intake: Oral 1200 500 540 Other: Voiding Method Toilet Toilet # Voids 3 1 - Exam In general patient is alert and oriented 3 in no apparent distress Head normocephalic and atraumatic Neck supple no JVD no goiter Lungs clear to auscultation bilaterally no wheezing or crackles Heart regular rate and rhythm S1-S2, no rub or gallop Abdomen is soft nontender nondistended positive bowel sounds no hepatosplenomegaly Extremities no edema no cyanosis or clubbing Neuro there is no gross focal neurological deficit - Labs CBC & Chem 7: 03/25/19 06:01 03/25/19 06:01 Labs: Abnormal Lab Results - Last 24 Hours (Table) 03/24/19 03/24/19 03/25/19 Range/Units 16:10 20:52 06:01 MCV (80.0-100.0) fL Plt Count (150-450) k/uL Sodium (137-145) mmol/L BUN (7-17) mg/dL Creatinine (0.52-1.04) mg/dL Glucose (74-99) mg/dL POC Glucose (mg/dL) 156 H 193 H (75-99) mg/dL Total Bilirubin (0.2-1.3) mg/dL AST (14-36) U/L Alkaline Phosphatase (38-126) U/L Ammonia 117 H (<30) umol/L Albumin (3.5-5.0) g/dL 03/25/19 03/25/19 03/25/19 Range/Units 06:01 06:01 06:06 MCV 106.6 H (80.0-100.0) fL Plt Count 75 L (150-450) k/uL Sodium 135 L (137-145) mmol/L BUN 23 H (7-17) mg/dL Creatinine 1.60 H (0.52-1.04) mg/dL Glucose 136 H (74-99) mg/dL POC Glucose (mg/dL) 136 H (75-99) mg/dL Total Bilirubin 1.9 H (0.2-1.3) mg/dL AST 67 H (14-36) U/L Alkaline Phosphatase 282 H (38-126) U/L Ammonia (<30) umol/L Albumin 3.3 L (3.5-5.0) g/dL 03/25/19 Range/Units 11:28 MCV (80.0-100.0) fL Plt Count (150-450) k/uL Sodium (137-145) mmol/L BUN (7-17) mg/dL Creatinine (0.52-1.04) mg/dL Glucose (74-99) mg/dL POC Glucose (mg/dL) 271 H (75-99) mg/dL Total Bilirubin (0.2-1.3) mg/dL AST (14-36) U/L Alkaline Phosphatase (38-126) U/L Ammonia (<30) umol/L Albumin (3.5-5.0) g/dL Assessment and Plan Plan: 1. Hepatic encephalopathy: Ammonia level 205. Ammonia level has come down to 19. Lactulose increased to 3 times a day per GI service and Xifaxan restarted. Patient has not been taking the Xifaxan at home due to cost. Ammonia level is up again at 117 today 2. Acute kidney injury: Creatinine 1.60. Likely related to dehydration and diuretics. Patient can become fluid overloaded very easily. Decrease Aldactone to 1 day at this time. Will give normal saline at 50 mL an hour due to poor oral intake and worsening creatinine level 3. Elevated lactic acid of 2.3 has normalized to 1.9 with IV fluids. Likely related to dehydration 4. Mildly elevated troponin with no chest pain. Likely related to elevated renal function. 5. History of nonalcoholic liver cirrhosis with subsequent development of hepatocellular carcinoma status post chemoembolization 6. Chronic kidney disease stage III 7. History of chronic abdominal pain due to recurring abdominal ascites 8. History of diverticulitis with ileostomy placement 9. Chronic pancytopenia due to liver cancer secondary to her chronic liver cirrhosis 10. Insulin-dependent diabetes mellitus. Elevated BS this AM because patient ate ice cream last pm. BS at 11:00 is 87. continue current insulin 11. Iron deficiency anemia continue iron supplement 12. Chronic elevated LFTs due to chronic liver malignancy GI prophylaxis Protonix and DVT prophylaxis SCDs due to patient's thrombocytopenia anticipate discharge tomorrow
[2019-03-25 16:48] LABS: Glucose,Whole Blood 110 mg/dL (75-99)
[2019-03-25 20:14] LABS: Glucose,Whole Blood 139 mg/dL (75-99)
[2019-03-26] MEDS: SODIUM CHLORIDE 0.9% 1,000 ML IV SCH (06:06)
[2019-03-26] MEDS: PANTOPRAZOLE 40 MG TABLET PO SCH (06:09)
[2019-03-26] MEDS: FERROUS SULFATE 325 MG TAB PO SCH (06:09)
[2019-03-26 06:27] VITALS: RESP 18
[2019-03-26 06:39] LABS: Glucose,Whole Blood 145 mg/dL (75-99)
[2019-03-26 06:47] LABS: Basophils % (A) 0 %; Eosinophils # (A) 0.2 k/uL (0-0.7); Eosinophils % (A) 5 %; HGB 12.5 gm/dL (11.4-16.0); Lymphocytes # (A) 1.1 k/uL (1.0-4.8); Lymphocytes % (A) 23 %; MCH 34.9 pg (25.0-35.0); MCHC 32.9 g/dL (31.0-37.0); MCV 106.3 fL (80.0-100.0); Macrocytosis Moderate; Mean Platelet Volume 9.7; Monocytes # (A) 0.4 k/uL (0-1.0); Monocytes % (A) 8 %; Neutrophils # (A) 3.1 k/uL (1.3-7.7); Neutrophils % (A) 61 %; RBC 3.58 m/uL (3.80-5.40); RDW 14.5 % (11.5-15.5)
[2019-03-26 06:55] LABS: Platelet Count 66 k/uL (150-450)
[2019-03-26 06:57] LABS: Albumin 2.8 g/dL (3.5-5.0); Calcium 8.9 mg/dL (8.4-10.2); Potassium 4.9 mmol/L (3.5-5.1); Total Bilirubin 1.7 mg/dL (0.2-1.3); Total Protein 6.4 g/dL (6.3-8.2)
[2019-03-26] MEDS: INSULIN REGULAR 100 UNIT/ML VIAL SQ SCH ×2 (07:23→12:21)
[2019-03-26] MEDS: SPIRONOLACTONE 25 MG TAB PO SCH (08:27)
[2019-03-26] MEDS: DICYCLOMINE 10 MG CAP PO SCH (08:27)
[2019-03-26] MEDS: CHOLECALCIFEROL 1,000 UNIT TAB PO SCH (08:27)
[2019-03-26] MEDS: METOPROLOL TARTRATE 12.5 MG TAB PO SCH (08:27)
[2019-03-26] MEDS: MAGNESIUM OXIDE 400 MG TAB PO SCH (08:27)
[2019-03-26] MEDS: TORSEMIDE 20 MG TAB PO SCH (08:28)
[2019-03-26] MEDS: MORPHINE SULFATE ER 15 MG TABLET PO SCH (08:28)
[2019-03-26] MEDS: RIFAXIMIN 550 MG TABLET PO SCH (08:28)
[2019-03-26] MEDS: buPROPion SR 150 MG TABLET.ER PO SCH (08:28)
[2019-03-26] MEDS: LACTULOSE 20 GM/30 ML CUP PO SCH (08:28)
[2019-03-26] MEDS: SUCRALFATE 1 GM TAB PO SCH ×2 (08:28→12:22)
[2019-03-26] MEDS: INSULIN NPH 300 UNIT/3 ML VIAL SQ SCH (08:29)
[2019-03-26 08:58] VITALS: BP 100/54; PULSE 60; TEMP 97.4
[2019-03-26 11:10] LABS: Glucose,Whole Blood 112 mg/dL (75-99)
--- NOTE | 2019-03-26 12:00 | PN ---
PROGRESS NOTE DATE OF SERVICE: March 26, 2019. The patient is a 73-year-old pleasant white female admitted to the hospital with hepatic encephalopathy. She has history of nonalcoholic fatty liver disease with cirrhosis of the liver complicated with hepatocellular carcinoma for which she follows at [facility], underwent a chemoembolization a month ago. She has been receiving oral lactulose and Xifaxan and feeling much better. Her nausea has resolved. She has several bowel movements in the ileostomy bag. Overall, she feels much better. PHYSICAL EXAMINATION: Appears comfortable. No apparent distress. Vital signs stable. Blood pressure 194/53, pulse rate 54, temperature 96. HEENT examination unremarkable. Conjunctivae pink. Sclerae anicteric. Oral cavity no lesions. NECK: No jugular venous distention or lymph node enlargement. CHEST: Clear to auscultation. HEART: Regular rate and rhythm. ABDOMEN: Soft. Mild tenderness in the epigastric area. Bowel sounds are positive. The ileostomy bag has yellowish stool. EXTREMITIES: No pedal edema. SKIN no rashes. NEUROLOGIC: Alert and oriented x3. No focal deficits. LABS: From today, ammonia 29. Rest of the labs showed bilirubin of 1.7, AST 61, ALT 29, alkaline phosphatase 232, and CBC with differential count is within normal limits. Platelets are 66,000. IMPRESSION: 1. Hepatic encephalopathy which has significantly improved. Ammonia level is back to normal at 26. Presently on oral Xifaxan 550 mg b.i.d. and lactulose 30 g 3 times daily doing much better. 2. Nonalcoholic fatty liver disease with cirrhosis of the liver with gradual decompensation. 3. Hepatocellular carcinoma diagnosed in October of 2018 follows at [facility], status post chemoembolization done about a month ago. RECOMMENDATIONS: 1. Continue with oral Xifaxan 550 mg twice daily as well as lactulose for that she has 3-4 bowel movements daily. 2. She can be discharged home today with outpatient follow up in a couple of weeks. Thank you for this consultation. MMODL / IJN: [id number] /
--- NOTE | 2019-03-26 12:33 | P.DS ---
Providers Date of admission: 03/23/19 07:16 Expected date of discharge: 03/26/19 Attending physician: Artemio Lea Consults: 03/23/19 07:17 Consult Physician Routine Consulting Provider: Carley Valverde Consult Reason/Comments: Hepatic encephalopathy Do you want consulting provider notified?: Yes Primary care physician: Gilma Martinez Hospital Course: Discharge Diagnosis: Hepatic encephalopathy, BATISTA, Hepatocellular carcinoma s/p embolization Cirrhosis Acute kidney injury on CKD III Elevated lactic acid Chronically elevated troponin DM 2 insuline requiring Iron deficiency anemia Thrombocytopenia due to cirrhosis Hospital Course: Patient is a 73-year-old female with a history medical history of 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 She was found have an elevated ammonia level. Her lactulose was increased to 3 times daily and she was started on Xifaxan. Patient is unable to take that At home due to excessive cost. She was noted to have a slightly elevated lactic acid at 2.3 and her creatinine was slightly above baseline at 1.41. She has a chronically elevated troponin and this was noted to be 0.5 for this admission. Her ammonia level improved over the course of her hospitalization. Her creatinine stabilized at 1.6, her Aldactone was decreased to once daily. It was felt that this was an acceptable level for her creatinine secondary to her issues with fluid overload. She will have home health on discharge. She'll have a repeat creatinine drawn in 3 days to ensure stabilization. She was seen by GI and cleared her for discharge. She was not taking Xifaxan home will not be able to afford this on discharge. She has plenty of lactulose will increase her frequency to 3 times daily. She will follow up with Dr. Francois in [address] George in 1-2 days. Anticipate that this patient will have frequent hospitalizations secondary to her advanced liver disease and chronic kidney disease. Patient seen and examined at bedside. Abdominal pain is at baseline. Confusion has resolved. Still afraid that this may happen again. Discussed that she is unable to afford Xifaxan. We'll proceed with having lactulose 3 times daily and frequent follow-up with GI. Vital signs reviewed and stable. General: non toxic, no distress, appears at stated age Derm: warm, dry Mouth: no lip lesion, mucus membranes moist Cardiovascular: S1S2 reg, no murmur, positive posterior tibial pulse bilateral, Lungs: CTA bilateral, no rhonchi, no rales , no accessory muscle use Abdominal: soft, nontender to palpation, no guarding, no appreciable organomegaly Ext: no gross muscle atrophy, no edema, no contractures Neuro: CN II-XI grossly intact, no focal neuro deficits Psych: Alert, oriented, appropriate affect A total of 35 minutes of time were spent preparing this complex discharge summary . Patient Condition at Discharge: Fair Plan - Discharge Summary Discharge Rx Participant: No New Discharge Prescriptions: New Lactulose [Cephulac] 30 gm PO TID ml Continue Sucralfate [Carafate] 1 gm PO QID Omeprazole [PriLOSEC] 20 mg PO BID Dicyclomine [Bentyl] 10 mg PO TID Insulin Regular, Human [NovoLIN R] 10 unit SQ AC-TID buPROPion SR [Wellbutrin SR] 150 mg PO DAILY #30 tablet.er Spironolactone [Aldactone] 50 mg PO BID 30 Days #60 tab Magnesium Oxide [William] 500 mg PO DAILY Torsemide [Demadex] 20 mg PO DAILY 30 Days #30 tab Cholecalciferol [Vitamin D3 (25 Mcg = 1000 Iu)] 4,000 unit PO DAILY Ferrous Sulfate [Iron (65 MG Elemental)] 325 mg PO BID Insulin NPH [humuLIN N] 18 unit SQ BID vial Metoprolol Tartrate [Lopressor] 12.5 mg PO BID #0 tab clonazePAM [KlonoPIN] 0.5 mg PO DAILY PRN #3 tab PRN Reason: Anxiety Morphine Sulfate ER [Ms Contin] 15 mg PO Q12HR 3 Days #6 tablet Discontinued Lactulose [Cephulac] 30 gm PO BID ml Rifaximin [Xifaxan] 550 mg PO BID tablet Discharge Medication List Dicyclomine [Bentyl] 10 mg PO TID 10/23/18 [History] Omeprazole [PriLOSEC] 20 mg PO BID 10/23/18 [History] Sucralfate [Carafate] 1 gm PO QID 10/23/18 [History] Insulin Regular, Human [NovoLIN R] 10 unit SQ AC-TID 10/24/18 [History] Spironolactone [Aldactone] 50 mg PO BID 30 Days #60 tab 12/21/18 [Rx] buPROPion SR [Wellbutrin SR] 150 mg PO DAILY #30 tablet.er 12/21/18 [Rx] Magnesium Oxide [William] 500 mg PO DAILY 12/30/18 [History] Torsemide [Demadex] 20 mg PO DAILY 30 Days #30 tab 01/09/19 [Rx] Cholecalciferol [Vitamin D3 (25 Mcg = 1000 Iu)] 4,000 unit PO DAILY 01/16/19 [History] Ferrous Sulfate [Iron (65 MG Elemental)] 325 mg PO BID 01/31/19 [History] Insulin NPH [humuLIN N] 18 unit SQ BID vial 02/06/19 [Rx] Metoprolol Tartrate [Lopressor] 12.5 mg PO BID #0 tab 03/06/19 [Rx] Morphine Sulfate ER [Ms Contin] 15 mg PO Q12HR 3 Days #6 tablet 03/06/19 [Rx] clonazePAM [KlonoPIN] 0.5 mg PO DAILY PRN #3 tab 03/06/19 [Rx] Lactulose [Cephulac] 30 gm PO TID ml 03/26/19 [Rx] Follow up Appointment(s)/Referral(s): [facility], [NON-STAFF] - Gilma Martinez MD [Primary Care Provider] - 1-2 days (Please call and make follow up appointment when office is open) Ananth Francois MD [STAFF PHYSICIAN] - 04/25/19 11:00 am Patient Instructions/Handouts: Hepatic Encephalopathy (DC)
== END 2019-03-26 13:12 | disposition home health service (06) | DRG 442 ==
LOC: EC 03:35 → 3SCARD 07:16
PROVIDERS: ADMIT Internal Medicine; ATTEND Internal Medicine
DX: K72.00 Acute and subacute hepatic failure without coma (principal); C22.0 Liver cell carcinoma; D61.818 Other pancytopenia; K76.6 Portal hypertension; N17.9 Acute kidney failure, unspecified; R18.8 Other ascites; E87.2 Acidosis; D50.9 Iron deficiency anemia, unspecified; E11.22 Type 2 diabetes mellitus with diabetic chronic kidney disease; E86.0 Dehydration; E87.70 Fluid overload, unspecified; I12.9 Hypertensive chronic kidney disease with stage 1 through stage 4 chronic kidney disease, or unspecified chronic kidney disease; I25.2 Old myocardial infarction; K21.9 Gastro-esophageal reflux disease without esophagitis; K72.10 Chronic hepatic failure without coma; K74.60 Unspecified cirrhosis of liver; N18.3 Chronic kidney disease, stage 3 (moderate); Z79.4 Long term (current) use of insulin; Z79.899 Other long term (current) drug therapy; Z82.49 Family history of ischemic heart disease and other diseases of the circulatory system; Z87.11 Personal history of peptic ulcer disease; Z87.891 Personal history of nicotine dependence; Z90.710 Acquired absence of both cervix and uterus; Z90.49 Acquired absence of other specified parts of digestive tract; R74.8 Abnormal levels of other serum enzymes; Z93.2 Ileostomy status; Z87.440 Personal history of urinary (tract) infections; R00.0 Tachycardia, unspecified; Z88.5 Allergy status to narcotic agent; Z88.0 Allergy status to penicillin; Z88.2 Allergy status to sulfonamides; Z88.8 Allergy status to other drugs, medicaments and biological substances
CPT/HCPCS: 36415; 80053; 81003; 82105; 82140; 83605; 84484; 85025; 85610; 93005; 96374; 99285

== ENCOUNTER 2019-03-27 20:33 | Observation (INO) | payer MEDICARE ==
[2019-03-27] MEDS ORDERED: SODIUM CHLORIDE 0.9% 500 ML 500 ML IV STA (21:13)
[2019-03-27] MEDS ORDERED: MORPHINE SULFATE 4 MG/ML SYRINGE IV STA (21:13)
--- NOTE | 2019-03-27 21:16 | ED ---
Abdominal Pain HPI - General Chief Complaint: Abdominal Pain Stated Complaint: Abdominal Pain Time Seen by Provider: 03/27/19 20:42 Source: patient, EMS Mode of arrival: EMS Limitations: no limitations - History of Present Illness Initial Comments: 73-year-old female patient presents to the emergency room today for evaluation of upper abdominal pain. Patient states this started several hours ago and has persisted throughout the day. Patient states that the pain is sharp and stabbing in nature. States that her blood pressure is also up and down thr oughout the day. States she did have a low blood pressure in the 80s systolic so she became concerned and presented here for further evaluation. Patient denies any fever but states she has been chilled. States she has been having nausea and dry heaves throughout the day. Patient does have a colostomy from history of perforated diverticulitis. States she has been having normal output with no black or bloody stool. Patient denies any recent rash, shortness breath, chest pain, back pain, numbness, tingling, dizziness, weakness, hematuria, dysuria, urinary urgency, urinary frequency, headache, visual changes, or any other complaints. - Related Data Home Medications Medication Instructions Recorded Confirmed Dicyclomine [Bentyl] 10 mg PO TID 10/23/18 03/27/19 Omeprazole [PriLOSEC] 20 mg PO BID 10/23/18 03/27/19 Sucralfate [Carafate] 1 gm PO QID 10/23/18 03/27/19 Insulin Regular, Human [NovoLIN R] 10 unit SQ AC-TID 10/24/18 03/27/19 Magnesium Oxide [William] 500 mg PO DAILY 12/30/18 03/27/19 Cholecalciferol [Vitamin D3 (25 4,000 unit PO DAILY 01/16/19 03/27/19 Mcg = 1000 Iu)] Ferrous Sulfate [Iron (65 MG 325 mg PO BID 01/31/19 03/27/19 Elemental)] Previous Rx's Medication Instructions Recorded buPROPion SR [Wellbutrin SR] 150 mg PO DAILY #30 tablet.er 12/21/18 Torsemide [Demadex] 20 mg PO DAILY 30 Days #30 tab 01/09/19 Insulin NPH [humuLIN N] 18 unit SQ BID vial 02/06/19 Metoprolol Tartrate [Lopressor] 12.5 mg PO BID #0 tab 03/06/19 Morphine Sulfate ER [Ms Contin] 15 mg PO Q12HR 3 Days #6 tablet 03/06/19 clonazePAM [KlonoPIN] 0.5 mg PO DAILY PRN #3 tab 03/06/19 Lactulose [Cephulac] 30 gm PO TID ml 03/26/19 Spironolactone [Aldactone] 50 mg PO DAILY #60 tab 03/26/19 Allergies Allergy/AdvReac Type Severity Reaction Status Date / Time amlodipine Allergy Rash/Hives Verified 03/27/19 21:26 oxycodone Allergy Rash/Hives Verified 03/27/19 21:26 Penicillins Allergy Rash/Hives Verified 03/27/19 21:26 hydromorphone [From Dilaudid] AdvReac Mild tactile Verified 03/27/19 21:26 disturbance GREG Inhibitors AdvReac Cough Verified 03/27/19 21:26 sodium dodecyclbenzene Allergy Rash/Hives Uncoded 03/27/19 21:04 sulfonate Review of Systems ROS Statement: Those systems with pertinent positive or pertinent negative responses have been documented in the HPI. ROS Other: All systems not noted in ROS Statement are negative. Past Medical History Past Medical History: Cancer, Diabetes Mellitus, GERD/Reflux, Hypertension, Liver Disease, Myocardial Infarction (ID), Renal Disease Additional Past Medical History / Comment(s): Hepatocellular liver cancer with chemo immobilizations-last time being 2017, ascities with paracentesis's, nonalcoholic liver cirrhosis, chronic pancytopenia, chronic elevated ammonia levels, hepatic encephalopathy, chronic elevated LFTs, chronic abdominal pain, stomach ulcer, diverticular disease with ileostomy, IDDM type II, iron anemia, CKD stage III, nonsustained vtach, UTI Last Myocardial Infarction Date:: unk History of Any Multi-Drug Resistant Organisms: MRSA Date of last positivie culture/infection: 12/30/18 MDRO Source:: MRSA URINE Past Surgical History: Appendectomy, Bowel Resection, Section, Cholecystectomy, Hysterectomy, Tonsillectomy Additional Past Surgical History / Comment(s): Chemo immobilizations, liver biopsies, paracentesis, bowel resection d/t diverticulitis/ileostomy, R rotator cuff repair, carpal tunnel release-laterality unknown. Past Anesthesia/Blood Transfusion Reactions: No Reported Reaction Past Psychological History: Anxiety, Depression Smoking Status: Former smoker Past Alcohol Use History: None Reported Past Drug Use History: None Reported - Past Family History Mother History Unknown: Yes Family Medical History: Congestive Heart Failure (CHF) Additional Family Medical History / Comment(s): Mother is 94 yrs old. Father Family Medical History: Chest Pain / Angina Additional Family Medical History / Comment(s): Father is . General Exam Limitations: no limitations General appearance: alert, in no apparent distress, other (Physical well- developed, well-nourished elderly female patient in no acute distress. Vital signs upon presentation are temperature 100.0F, pulse 56, respirations 18, blood pressure 126/65, pulse ox 100% on room air.) Eye exam: Present: normal appearance, PERRL, EOMI. Absent: scleral icterus, conjunctival injection, periorbital swelling ENT exam: Present: normal exam, normal oropharynx, mucous membranes moist Neck exam: Present: normal inspection. Absent: tenderness, meningismus, ly mphadenopathy Respiratory exam: Present: normal lung sounds bilaterally. Absent: respiratory distress, wheezes, rales, rhonchi, stridor Cardiovascular Exam: Present: regular rate, normal rhythm, normal heart sounds. Absent: systolic murmur, diastolic murmur, rubs, gallop, clicks GI/Abdominal exam: Present: soft, tenderness (Midepigastric left upper quadrant tenderness), normal bowel sounds. Absent: distended, guarding, rebound, rigid Neurological exam: Present: alert, oriented X3, CN II-XII intact Psychiatric exam: Present: normal affect, normal mood Skin exam: Present: warm, dry, intact, normal color. Absent: rash Course Vital Signs 03/27/19 03/27/19 03/27/19 21:02 21:11 22:40 Temperature 100.0 F H 98.7 F Pulse Rate 56 L 55 L Respiratory 18 16 16 Rate Blood Pressure 126/65 105/67 O2 Sat by Pulse 100 97 Oximetry 03/27/19 03/28/19 23:00 01:22 Temperature Pulse Rate 59 L 55 L Respiratory 16 18 Rate Blood Pressure 113/62 105/44 O2 Sat by Pulse 97 96 Oximetry Medical Decision Making - Medical Decision Making 73-year-old female patient presents to the emergency department today for evaluation of upper abdominal pain and dry heaves. Physical examination did reveal upper abdominal tenderness. Labs reviewed and did reveal chronic elevation in BUN and creatinine. Troponin was elevated 0.066. CT of the abdomen and pelvis was obtained without contrast given renal function and showed no acute abnormalities. I did discuss findings and results with the patient. Did discuss findings and results with my attending Dr. Bhatia. Given patient's increased troponin we will admit for serial testing and cardiology evaluation. - Lab Data Result diagrams: 03/27/19 22:13 03/27/19 22:13 Lab Results 03/27/19 03/27/19 03/27/19 Range/Units 22:13 22:13 22:13 WBC 6.0 (3.8-10.6) k/uL RBC 3.58 L (3.80-5.40) m/uL Hgb 12.6 (11.4-16.0) gm/dL Hct 38.1 (34.0-46.0) % MCV 106.4 H (80.0-100.0) fL MCH 35.2 H (25.0-35.0) pg MCHC 33.1 (31.0-37.0) g/dL RDW 14.5 (11.5-15.5) % Plt Count 68 L (150-450) k/uL Neutrophils % 62 % Lymphocytes % 23 % Monocytes % 8 % Eosinophils % 5 % Basophils % 0 % Neutrophils # 3.7 (1.3-7.7) k/uL Lymphocytes # 1.3 (1.0-4.8) k/uL Monocytes # 0.5 (0-1.0) k/uL Eosinophils # 0.3 (0-0.7) k/uL Basophils # 0.0 (0-0.2) k/uL Manual Slide Review Performed Macrocytosis Moderate Sodium 133 L (137-145) mmol/L Potassium 4.3 (3.5-5.1) mmol/L Chloride 105 (98-107) mmol/L Carbon Dioxide 19 L (22-30) mmol/L Anion Gap 9 mmol/L BUN 34 H (7-17) mg/dL Creatinine 1.81 H (0.52-1.04) mg/dL Est GFR (CKD-EPI)AfAm 32 (>60 ml/min/1.73 sqM) Est GFR (CKD-EPI)NonAf 28 (>60 ml/min/1.73 sqM) Glucose 160 H (74-99) mg/dL Plasma Lactic Acid Carlos 1.4 (0.7-2.0) mmol/L Calcium 8.9 (8.4-10.2) mg/dL Total Bilirubin 2.0 H (0.2-1.3) mg/dL AST 62 H (14-36) U/L ALT 33 (9-52) U/L Alkaline Phosphatase 278 H (38-126) U/L Troponin I (0.000-0.034) ng/mL Total Protein 6.7 (6.3-8.2) g/dL Albumin 3.1 L (3.5-5.0) g/dL Amylase 53 (30-110) U/L Lipase 29 (23-300) U/L Urine Color Urine Appearance (Clear) Urine pH (5.0-8.0) Ur Specific [place] (1.001-1.035) Urine Protein (Negative) Urine Glucose (UA) (Negative) Urine Ketones (Negative) Urine Blood (Negative) Urine Nitrite (Negative) Urine Bilirubin (Negative) Urine Urobilinogen (<2.0) mg/dL Ur Leukocyte Esterase (Negative) 03/27/19 03/27/19 Range/Units 22:13 23:30 WBC (3.8-10.6) k/uL RBC (3.80-5.40) m/uL Hgb (11.4-16.0) gm/dL Hct (34.0-46.0) % MCV (80.0-100.0) fL MCH (25.0-35.0) pg MCHC (31.0-37.0) g/dL RDW (11.5-15.5) % Plt Count (150-450) k/uL Neutrophils % % Lymphocytes % % Monocytes % % Eosinophils % % Basophils % % Neutrophils # (1.3-7.7) k/uL Lymphocytes # (1.0-4.8) k/uL Monocytes # (0-1.0) k/uL Eosinophils # (0-0.7) k/uL Basophils # (0-0.2) k/uL Manual Slide Review Macrocytosis Sodium (137-145) mmol/L Potassium (3.5-5.1) mmol/L Chloride (98-107) mmol/L Carbon Dioxide (22-30) mmol/L Anion Gap mmol/L BUN (7-17) mg/dL Creatinine (0.52-1.04) mg/dL Est GFR (CKD-EPI)AfAm (>60 ml/min/1.73 sqM) Est GFR (CKD-EPI)NonAf (>60 ml/min/1.73 sqM) Glucose (74-99) mg/dL Plasma Lactic Acid Carlos (0.7-2.0) mmol/L Calcium (8.4-10.2) mg/dL Total Bilirubin (0.2-1.3) mg/dL AST (14-36) U/L ALT (9-52) U/L Alkaline Phosphatase (38-126) U/L Troponin I 0.066 H* (0.000-0.034) ng/mL Total Protein (6.3-8.2) g/dL Albumin (3.5-5.0) g/dL Amylase (30-110) U/L Lipase (23-300) U/L Urine Color Yellow Urine Appearance Clear (Clear) Urine pH 5.0 (5.0-8.0) Ur Specific [place] 1.012 (1.001-1.035) Urine Protein Negative (Negative) Urine Glucose (UA) Negative (Negative) Urine Ketones Negative (Negative) Urine Blood Negative (Negative) Urine Nitrite Negative (Negative) Urine Bilirubin Negative (Negative) Urine Urobilinogen <2.0 (<2.0) mg/dL Ur Leukocyte Esterase Negative (Negative) - EKG Data -: EKG Interpreted by Wy EKG Comments: EKG obtained at 0043 shows sinus bradycardia with a right bundle branch block, ventricular rate is 52, WA interval 166, QRS duration 140, QTC 490, QTc 455. No evidence of ST elevation or depression. - Radiology Data Radiology results: report reviewed, image reviewed CT abdomen and pelvis without contrast is obtained. Report was reviewed in its entirety. Impression by Dr. Hester shows again seen is a cirrhotic liver. There are stable masslike lesion seen at the hepatic segment 6 measuring up to 5.3 cm in segment for a measuring up to 4 some liters. Either incomplete characterize. Consider liver protocol CT or MRI to exclude hepatocellular carcinoma clinically indicated. Disposition Clinical Impression: Abdominal pain, Elevated troponin Disposition: ADMITTED IP TO THIS [facility] Condition: Serious Decision to Admit Reason: Admit from EC Decision Date: 03/28/19 Decision Time: 01:26
[2019-03-27 22:24] LABS: Basophils % (A) 0 %; Eosinophils # (A) 0.3 k/uL (0-0.7); Eosinophils % (A) 5 %; HCT 38.1 % (34.0-46.0); HGB 12.6 gm/dL (11.4-16.0); Lymphocytes # (A) 1.3 k/uL (1.0-4.8); Lymphocytes % (A) 23 %; MCH 35.2 pg (25.0-35.0); MCHC 33.1 g/dL (31.0-37.0); MCV 106.4 fL (80.0-100.0); Macrocytosis Moderate; Mean Platelet Volume 9.5; Monocytes # (A) 0.5 k/uL (0-1.0); Monocytes % (A) 8 %; Neutrophils # (A) 3.7 k/uL (1.3-7.7); Neutrophils % (A) 62 %; RBC 3.58 m/uL (3.80-5.40); RDW 14.5 % (11.5-15.5)
[2019-03-27 22:36] LABS: Albumin 3.1 g/dL (3.5-5.0); Calcium 8.9 mg/dL (8.4-10.2); Potassium 4.3 mmol/L (3.5-5.1); Total Protein 6.7 g/dL (6.3-8.2)
[2019-03-27 22:39] LABS: Platelet Count 68 k/uL (150-450)
--- NOTE | 2019-03-27 23:20 | CT ---
EXAM: CT Abdomen and Pelvis Without Intravenous Contrast CLINICAL HISTORY: Pain TECHNIQUE: Axial computed tomography images of the abdomen and pelvis without intravenous contrast. CTDI is 0.085, 0.085, 11.7 mGy and DLP is 716.2 mGy-cm. This CT exam was performed using one or more of the following dose reduction techniques: automated exposure control, adjustment of the mA and/or kV according to patient size, and/or use of iterative reconstruction technique. COMPARISON: CT abdomen and pelvis dated 12/30/2018 FINDINGS: Lung bases: Dependent atelectasis. ABDOMEN: Liver: Again seen is a cirrhotic liver. There are stable masslike lesions seen at hepatic segment 6 measuring up to 5.3 cm and segment 4A measuring up to 4 cm. Calcification within the left hepatic lobe. Gallbladder and bile ducts: Gallbladder is surgically absent. Pancreas: Unremarkable. Spleen: Splenomegaly. Adrenals: Unremarkable. Kidneys and ureters: Unremarkable. Stomach and bowel: Evidence of a near-complete colectomy with Naranjo's pouch and a right lower quadrant ileostomy. No bowel obstruction. There are small amount of free fluid within the pelvis. Small parastomal hernia containing nonobstructed small bowel which is unchanged. PELVIS: Appendix: See above. Bladder: Unremarkable. Reproductive: Uterus is surgically absent. ABDOMEN and PELVIS: Intraperitoneal space: Small amount of ascites. Bones/joints: No acute fracture. No dislocation. Soft tissues: See above. Vasculature: Portosystemic collaterals to within upper abdomen. Vascular calcifications. No abdominal aortic aneurysm. Lymph nodes: Subcentimeter mesenteric lymph nodes, likely reactive. IMPRESSION: Again seen is a cirrhotic liver. There are stable masslike lesions seen at hepatic segment 6 measuring up to 5.3 cm and segment 4A measuring up to 4 cm. These are incompletely characterized. Consider liver protocol CT or MRI to exclude hepatocellular carcinoma if clinically indicated.
[2019-03-27 23:49] LABS: Appearance,Urine Clear (Clear); Bilirubin,Urine Negative (Negative); Blood,Urine Negative (Negative); Color,Urine Yellow; Glucose,Urine (UA) Negative (Negative); Ketones,Urine Negative (Negative); Leukocyte Esterase,Urine Negative (Negative); Nitrite,Urine Negative (Negative); Protein,Urine Negative (Negative); Specific Gravity,Urine 1.012 (1.001-1.035); Urobilinogen,Urine <2.0 mg/dL (<2.0)
[2019-03-28] MEDS ORDERED: NALOXONE 0.4 MG/ML 1 ML VIAL IV PRN (01:27)
[2019-03-28] MEDS ORDERED: MORPHINE SULFATE 4 MG/ML SYRINGE IVP PRN (02:04)
[2019-03-28 02:40] LABS: Glucose,Whole Blood 147 mg/dL (75-99)
[2019-03-28] MEDS ORDERED: clonazePAM 0.5 MG TAB PO PRN (08:46)
--- NOTE | 2019-03-28 09:25 | P.CRDCN ---
History of Present Illness Consult date: 03/28/19 Requesting physician: Artemio Lea Reason for Consult (text): Abnormal troponins Chief complaint: Abdominal pain History of present illness: This is a 73-year-old female with past medical history significant for hypertension, hepatocellular carcinoma status post chemoembolization, recurrent ascites and frequent paracentesis, nonalcoholic liver cirrhosis, diabetes, hyperlipidemia, prior nicotine dependence, chronic kidney disease, frequent UTI with MRSA. She has had several admissions to the hospital with symptoms of abdominal discomfort with associated gastroenteritis. She again presents to the hospital on this admission with symptoms of abdominal pain. She also states that she used her blood pressure cuff at home and noted that her blood pressure was running lower than her usual. Cardiology consultation was requested because of abnormality in troponin. Patient did have an echocardiogram with Doppler study performed in February of this year which revealed an ejection fraction of 45- 50%. White blood cell count is normal, hemoglobin 12.6, platelet count 68. Sodium 133, potassium 4.3, BUN 34 and creatinine 1.8. Troponin 0.06, 0.06. I pressure on arrival here 126/60, temperature of 100, heart rate in the 50s, 100% on room air. Blood pressure this morning 108/60 with a heart rate in the 60s, 100% on room air. At the time of my examination this morning, patient is complaining of a significant amount of abdominal discomfort. She denies any chest discomfort, no dizziness or lightheadedness. Past Medical History Past Medical History: Cancer, Diabetes Mellitus, GERD/Reflux, Hypertension, Liver Disease, Myocardial Infarction (DE), Renal Disease Additional Past Medical History / Comment(s): Hepatocellular liver cancer with chemo immobilizations-last time being 2017, ascities with paracentesis's, nonalcoholic liver cirrhosis, chronic pancytopenia, chronic elevated ammonia levels, hepatic encephalopathy, chronic elevated LFTs, chronic abdominal pain, stomach ulcer, diverticular disease with ileostomy, IDDM type II, iron anemia, CKD stage III, nonsustained vtach, UTI Last Myocardial Infarction Date:: unk History of Any Multi-Drug Resistant Organisms: MRSA Date of last positivie culture/infection: 12/30/18 MDRO Source:: MRSA URINE Past Surgical History: Appendectomy, Bowel Resection, Section, Cholecystectomy, Hysterectomy, Tonsillectomy Additional Past Surgical History / Comment(s): Chemo immobilizations, liver biopsies, paracentesis, bowel resection d/t diverticulitis/ileostomy, R rotator cuff repair, carpal tunnel release-laterality unknown. Past Anesthesia/Blood Transfusion Reactions: No Reported Reaction Past Psychological History: Anxiety, Depression Smoking Status: Former smoker Past Alcohol Use History: None Reported Past Drug Use History: None Reported - Past Family History Mother History Unknown: Yes Family Medical History: Congestive Heart Failure (CHF) Additional Family Medical History / Comment(s): Mother is 94 yrs old. Father Family Medical History: Chest Pain / Angina Additional Family Medical History / Comment(s): Father is . Medications and Allergies Home Medications Medication Instructions Recorded Confirmed Type Dicyclomine [Bentyl] 10 mg PO TID 10/23/18 03/27/19 History Omeprazole [PriLOSEC] 20 mg PO BID 10/23/18 03/27/19 History Sucralfate [Carafate] 1 gm PO QID 10/23/18 03/27/19 History Insulin Regular, Human [NovoLIN R] 10 unit SQ AC-TID 10/24/18 03/27/19 History buPROPion SR [Wellbutrin SR] 150 mg PO DAILY #30 tablet.er 12/21/18 03/27/19 Rx Magnesium Oxide [William] 500 mg PO DAILY 12/30/18 03/27/19 History Torsemide [Demadex] 20 mg PO DAILY 30 Days #30 tab 01/09/19 03/27/19 Rx Cholecalciferol [Vitamin D3 (25 4,000 unit PO DAILY 01/16/19 03/27/19 History Mcg = 1000 Iu)] Ferrous Sulfate [Iron (65 MG 325 mg PO BID 01/31/19 03/27/19 History Elemental)] Insulin NPH [humuLIN N] 18 unit SQ BID vial 02/06/19 03/27/19 Rx Metoprolol Tartrate [Lopressor] 12.5 mg PO BID #0 tab 03/06/19 03/27/19 Rx Morphine Sulfate ER [Ms Contin] 15 mg PO Q12HR 3 Days #6 tablet 03/06/19 03/27/19 Rx clonazePAM [KlonoPIN] 0.5 mg PO DAILY PRN #3 tab 03/06/19 03/27/19 Rx Lactulose [Cephulac] 30 gm PO TID ml 03/26/19 03/28/19 Rx Spironolactone [Aldactone] 50 mg PO DAILY #60 tab 03/26/19 03/27/19 Rx Allergies Allergy/AdvReac Type Severity Reaction Status Date / Time amlodipine Allergy Rash/Hives Verified 03/27/19 21:26 oxycodone Allergy Rash/Hives Verified 03/27/19 21:26 Penicillins Allergy Rash/Hives Verified 03/27/19 21:26 hydromorphone [From Dilaudid] AdvReac Mild tactile Verified 03/27/19 21:26 disturbance GREG Inhibitors AdvReac Cough Verified 03/27/19 21:26 sodium dodecyclbenzene Allergy Rash/Hives Uncoded 03/27/19 21:04 sulfonate Physical Exam Vitals: Vital Signs Temp Pulse Pulse Resp BP BP Pulse Ox 03/28/19 08:00 97.6 F 58 L 16 109/61 100 03/28/19 04:35 97.5 F L 55 L 15 99/48 98 03/28/19 02:37 97.3 F L 55 L 15 103/73 99 03/28/19 01:22 55 L 18 105/44 96 03/27/19 23:00 59 L 16 113/62 97 03/27/19 22:40 98.7 F 55 L 16 105/67 97 03/27/19 21:11 16 03/27/19 21:02 100.0 F H 56 L 18 126/65 100 Intake and Output 03/27/19 03/28/19 03/28/19 22:59 06:59 14:59 Intake Total 50 Balance 50 Intake: Amount of Fluid Infused ( 50 ml) Other: Voiding Method Toilet Weight 86.183 kg 86.9 kg PHYSICAL EXAMINATION: GENERAL: 73-year-old female in no acute distress at the time of my examination HEENT: Head is atraumatic, normocephalic. Pupils equal, round. Sclera anicteric. Conjunctiva are clear. Mucous membranes of the mouth are moist. Neck is supple. There is no elevated jugular venous pressure. No carotid bruit is heard. HEART EXAMINATION: Heart S1 and S2 with soft systolic murmur is heard CHEST EXAMINATION: Lungs are clear to auscultation and precussion. No chest wall tenderness is noted on palpation or with deep breathing. ABDOMEN: Soft, nontender. Bowel sounds are heard. No organomegaly noted. EXTREMITIES: 2+ peripheral pulses with no evidence of peripheral edema and no calf tenderness noted. NEUROLOGIC patient is awake, alert and oriented 3 . . Results 03/27/19 22:13 03/27/19 22:13 Cardiac Enzymes 03/27/19 03/27/19 03/28/19 Range/Units 22:13 22:13 06:43 AST 62 H (14-36) U/L Troponin I 0.066 H* 0.065 H* (0.000-0.034) ng/mL CBC 03/27/19 Range/Units 22:13 WBC 6.0 (3.8-10.6) k/uL RBC 3.58 L (3.80-5.40) m/uL Hgb 12.6 (11.4-16.0) gm/dL Hct 38.1 (34.0-46.0) % Plt Count 68 L (150-450) k/uL Comprehensive Metabolic Panel 03/27/19 Range/Units 22:13 Sodium 133 L (137-145) mmol/L Potassium 4.3 (3.5-5.1) mmol/L Chloride 105 (98-107) mmol/L Carbon Dioxide 19 L (22-30) mmol/L BUN 34 H (7-17) mg/dL Creatinine 1.81 H (0.52-1.04) mg/dL Glucose 160 H (74-99) mg/dL Calcium 8.9 (8.4-10.2) mg/dL AST 62 H (14-36) U/L ALT 33 (9-52) U/L Alkaline Phosphatase 278 H (38-126) U/L Total Protein 6.7 (6.3-8.2) g/dL Albumin 3.1 L (3.5-5.0) g/dL Current Medications Generic Name Dose Route Start Last Admin Trade Name Freq PRN Reason Stop Dose Admin Bupropion HCl 150 mg 03/28/19 09:00 Wellbutrin Sr PO DAILY JENNY Cholecalciferol 4,000 unit 03/28/19 09:00 Vitamin D3 (25 Mcg = 1000 Iu) PO DAILY JENNY Clonazepam 0.5 mg 03/28/19 08:46 Klonopin PO DAILY PRN Anxiety Dicyclomine HCl 10 mg 03/28/19 09:00 Bentyl PO TID [facility] Ferrous Sulfate 325 mg 03/28/19 09:00 Feosol PO BID [facility] Insulin Human NPH 18 unit 03/28/19 09:00 Humulin N SQ BID [facility] Insulin Human Regular 10 unit 03/28/19 12:30 Humulin R SQ AC-TID [facility] Lactulose 30 gm 03/28/19 09:00 Cephulac PO TID [facility] Magnesium Oxide 400 mg 03/28/19 09:00 Mag-Ox PO DAILY [facility] Metoprolol Tartrate 12.5 mg 03/28/19 09:00 Lopressor PO BID [facility] Morphine Sulfate 4 mg 03/28/19 02:04 Morphine Sulfate (Inj) IVP Q4HR PRN Pain Morphine Sulfate 15 mg 03/28/19 09:00 Ms Contin PO Q12HR [facility] Naloxone HCl 0.2 mg 03/28/19 01:27 Narcan IV Q2M PRN Opioid Reversal Pantoprazole Sodium 40 mg 03/28/19 09:00 Protonix PO AC-BRKFST [facility] Sucralfate 1 gm 03/28/19 09:00 Carafate PO QID [facility] Intake and Output 03/27/19 03/28/19 03/28/19 22:59 06:59 14:59 Intake Total 50 Balance 50 Intake: Amount of Fluid Infused ( 50 ml) Other: Voiding Method Toilet Weight 86.183 kg 86.9 kg 03/27/19 22:13 03/27/19 22:13 EKG Interpretations (text) EKG shows a sinus bradycardia with a right bundle branch block pattern. Nonspecific ST-T wave changes Assessment and Plan Plan: Assessment and plan #1 abdominal discomfort #2 abnormality in troponin, not consistent with acute coronary syndrome, with no significant rise and fall pattern. Patient is noted to have abnormality in troponin over the past few months admissions. Echo was performed in February which revealed an ejection fraction of 45-50%. #3 history of hepatocellular carcinoma status post chemoembolization #4 nonalcoholic liver cirrhosis with frequent paracentesis #5 history of pancytopenia #6 chronic kidney disease #7 diabetes Plan From cardiology's perspective, we will not repeat an echocardiogram with Doppler study, as the patient just had one performed in February. Abnormality in troponin not consistent with acute coronary syndrome. We will follow this patient along with you now on an as-needed basis only, please don't hesitate to call with any questions. DNP note has been reviewed, I agree with a documented findings and plan of care. Patient was seen and examined.
[2019-03-28 09:29] LABS: Basophils % (A) 1 %; Eosinophils # (A) 0.2 k/uL (0-0.7); Eosinophils % (A) 4 %; HCT 33.4 % (34.0-46.0); HGB 11.3 gm/dL (11.4-16.0); Lymphocytes # (A) 1.3 k/uL (1.0-4.8); Lymphocytes % (A) 28 %; MCH 36.2 pg (25.0-35.0); MCV 106.7 fL (80.0-100.0); Macrocytosis Moderate; Mean Platelet Volume 10.2; Monocytes # (A) 0.4 k/uL (0-1.0); Monocytes % (A) 9 %; Neutrophils # (A) 2.6 k/uL (1.3-7.7); Neutrophils % (A) 56 %; RBC 3.13 m/uL (3.80-5.40); RDW 15.1 % (11.5-15.5); WBC 4.7 k/uL (3.8-10.6)
[2019-03-28 09:34] LABS: Platelet Count 52 k/uL (150-450)
[2019-03-28 09:36] LABS: Albumin 2.7 g/dL (3.5-5.0); Calcium 8.5 mg/dL (8.4-10.2); Potassium 4.3 mmol/L (3.5-5.1); Total Bilirubin 1.3 mg/dL (0.2-1.3); Total Protein 5.9 g/dL (6.3-8.2)
[2019-03-28] MEDS: LACTULOSE 20 GM/30 ML CUP PO SCH ×3 (09:45→20:03)
[2019-03-28] MEDS: MORPHINE SULFATE ER 15 MG TABLET PO SCH ×2 (09:47→20:03)
[2019-03-28] MEDS: MAGNESIUM OXIDE 400 MG TAB PO SCH (09:47)
[2019-03-28] MEDS: CHOLECALCIFEROL 1,000 UNIT TAB PO SCH (09:48)
[2019-03-28] MEDS: buPROPion SR 150 MG TABLET.ER PO SCH (09:48)
[2019-03-28] MEDS: DICYCLOMINE 10 MG CAP PO SCH ×3 (09:48→20:04)
[2019-03-28] MEDS: PANTOPRAZOLE 40 MG TABLET PO SCH (09:48)
[2019-03-28] MEDS: FERROUS SULFATE 325 MG TAB PO SCH ×2 (09:48→20:04)
[2019-03-28] MEDS: SUCRALFATE 1 GM TAB PO SCH ×4 (09:48→21:19)
[2019-03-28] MEDS: METOPROLOL TARTRATE 12.5 MG TAB PO SCH ×2 (09:48→20:04)
[2019-03-28] MEDS: INSULIN NPH 300 UNIT/3 ML VIAL SQ SCH ×2 (09:48→21:19)
--- NOTE | 2019-03-28 11:28 | P.HPIM ---
History of Present Illness H&P Date: 03/28/19 This is a 73-year-old female patient of Dr. Anthony. Patient presented with complaints of abdominal pain. Patient has known history of chronic abdominal pain due to her hepatocellular carcinoma. Patient was noted to have mild elevation in troponin. Patient has a known past medical history of hepa tocellular liver cancer with chemo immobilization for diabetes mellitus, GERD, hypertension, liver disease, myocardial infarction, renal disease iron deficiency anemia, MRSA in the urine, anxiety and depression. CT of abdomen and pelvis completed showing again cirrhotic liver. There is a stable masslike lesion seen at hepatic segment 6 measuring up to 5.3 cm in segment 4A measuring up to 4 cm these are incompletely characterized. Consider liver protocol CT or MRI to exclude hepatocellular carcinoma if clinically indicated. Cardiology services have been consulted. At this time patient denies chest pain or shortness of breath. Patient is complaining of follow-up at [facility] with surgeon for her ostomy. Patient denies any urinary burning or frequency. Review of Systems Please per HPI otherwise unremarkable Past Medical History Past Medical History: Cancer, Diabetes Mellitus, GERD/Reflux, Hypertension, Liver Disease, Myocardial Infarction (CT), Renal Disease Additional Past Medical History / Comment(s): Hepatocellular liver cancer with chemo immobilizations-last time being 2017, ascities with paracentesis's, nonalcoholic liver cirrhosis, chronic pancytopenia, chronic elevated ammonia levels, hepatic encephalopathy, chronic elevated LFTs, chronic abdominal pain, stomach ulcer, diverticular disease with ileostomy, IDDM type II, iron anemia, CKD stage III, nonsustained vtach, UTI Last Myocardial Infarction Date:: unk History of Any Multi-Drug Resistant Organisms: MRSA Date of last positivie culture/infection: 12/30/18 MDRO Source:: MRSA URINE Past Surgical History: Appendectomy, Bowel Resection, Section, Cholecystectomy, Hysterectomy, Tonsillectomy Additional Past Surgical History / Comment(s): Chemo immobilizations, liver biopsies, paracentesis, bowel resection d/t diverticulitis/ileostomy, R rotator cuff repair, carpal tunnel release-laterality unknown. Past Anesthesia/Blood Transfusion Reactions: No Reported Reaction Past Psychological History: Anxiety, Depression Smoking Status: Former smoker Past Alcohol Use History: None Reported Past Drug Use History: None Reported - Past Family History Mother History Unknown: Yes Family Medical History: Congestive Heart Failure (CHF) Additional Family Medical History / Comment(s): Mother is 94 yrs old. Father Family Medical History: Chest Pain / Angina Additional Family Medical History / Comment(s): Father is . Medications and Allergies Home Medications Medication Instructions Recorded Confirmed Type Dicyclomine [Bentyl] 10 mg PO TID 10/23/18 03/27/19 History Omeprazole [PriLOSEC] 20 mg PO BID 10/23/18 03/27/19 History Sucralfate [Carafate] 1 gm PO QID 10/23/18 03/27/19 History Insulin Regular, Human [NovoLIN R] 10 unit SQ AC-TID 10/24/18 03/27/19 History buPROPion SR [Wellbutrin SR] 150 mg PO DAILY #30 tablet.er 12/21/18 03/27/19 Rx Magnesium Oxide [William] 500 mg PO DAILY 12/30/18 03/27/19 History Torsemide [Demadex] 20 mg PO DAILY 30 Days #30 tab 01/09/19 03/27/19 Rx Cholecalciferol [Vitamin D3 (25 4,000 unit PO DAILY 01/16/19 03/27/19 History Mcg = 1000 Iu)] Ferrous Sulfate [Iron (65 MG 325 mg PO BID 01/31/19 03/27/19 History Elemental)] Insulin NPH [humuLIN N] 18 unit SQ BID vial 02/06/19 03/27/19 Rx Metoprolol Tartrate [Lopressor] 12.5 mg PO BID #0 tab 03/06/19 03/27/19 Rx Morphine Sulfate ER [Ms Contin] 15 mg PO Q12HR 3 Days #6 tablet 03/06/19 03/27/19 Rx clonazePAM [KlonoPIN] 0.5 mg PO DAILY PRN #3 tab 03/06/19 03/27/19 Rx Lactulose [Cephulac] 30 gm PO TID ml 03/26/19 03/28/19 Rx Spironolactone [Aldactone] 50 mg PO DAILY #60 tab 03/26/19 03/27/19 Rx Allergies Allergy/AdvReac Type Severity Reaction Status Date / Time amlodipine Allergy Rash/Hives Verified 03/27/19 21:26 oxycodone Allergy Rash/Hives Verified 03/27/19 21:26 Penicillins Allergy Rash/Hives Verified 03/27/19 21:26 hydromorphone [From Dilaudid] AdvReac Mild tactile Verified 03/27/19 21:26 disturbance GREG Inhibitors AdvReac Cough Verified 03/27/19 21:26 sodium dodecyclbenzene Allergy Rash/Hives Uncoded 03/27/19 21:04 sulfonate Physical Exam Vitals: Vital Signs Temp Pulse Pulse Resp BP BP Pulse Ox 03/28/19 08:00 97.6 F 58 L 16 109/61 100 03/28/19 04:35 97.5 F L 55 L 15 99/48 98 03/28/19 02:37 97.3 F L 55 L 15 103/73 99 03/28/19 01:22 55 L 18 105/44 96 03/27/19 23:00 59 L 16 113/62 97 03/27/19 22:40 98.7 F 55 L 16 105/67 97 03/27/19 21:11 16 03/27/19 21:02 100.0 F H 56 L 18 126/65 100 Intake and Output 03/27/19 03/28/19 03/28/19 22:59 06:59 14:59 Intake Total 50 Balance 50 Intake: Amount of Fluid Infused ( 50 ml) Other: Voiding Method Toilet Weight 86.183 kg 86.9 kg Head normocephalic Neck supple Lungs clear to auscultation bilaterally no wheezing or crackles Heart regular rate and rhythm S1-S2, no rub or gallop Abdomen is soft nontender nondistended positive bowel sounds no hepatosplenomegaly. Ostomy in place Extremities no edema Neuro alert and orientated to 3 Results CBC & Chem 7: 03/28/19 06:43 03/28/19 06:43 Labs: Abnormal Lab Results - Last 24 Hours (Table) 03/27/19 03/27/19 03/27/19 Range/Units 22:13 22:13 22:13 RBC 3.58 L (3.80-5.40) m/uL Hgb (11.4-16.0) gm/dL Hct (34.0-46.0) % MCV 106.4 H (80.0-100.0) fL MCH 35.2 H (25.0-35.0) pg Plt Count 68 L (150-450) k/uL Sodium 133 L (137-145) mmol/L Carbon Dioxide 19 L (22-30) mmol/L BUN 34 H (7-17) mg/dL Creatinine 1.81 H (0.52-1.04) mg/dL Glucose 160 H (74-99) mg/dL POC Glucose (mg/dL) (75-99) mg/dL Total Bilirubin 2.0 H (0.2-1.3) mg/dL AST 62 H (14-36) U/L Alkaline Phosphatase 278 H (38-126) U/L Troponin I 0.066 H* (0.000-0.034) ng/mL Total Protein (6.3-8.2) g/dL Albumin 3.1 L (3.5-5.0) g/dL 03/28/19 03/28/19 03/28/19 Range/Units 02:28 06:43 06:43 RBC 3.13 L (3.80-5.40) m/uL Hgb 11.3 L (11.4-16.0) gm/dL Hct 33.4 L (34.0-46.0) % MCV 106.7 H (80.0-100.0) fL MCH 36.2 H (25.0-35.0) pg Plt Count 52 L (150-450) k/uL Sodium (137-145) mmol/L Carbon Dioxide (22-30) mmol/L BUN (7-17) mg/dL Creatinine (0.52-1.04) mg/dL Glucose (74-99) mg/dL POC Glucose (mg/dL) 147 H (75-99) mg/dL Total Bilirubin (0.2-1.3) mg/dL AST (14-36) U/L Alkaline Phosphatase (38-126) U/L Troponin I 0.065 H* (0.000-0.034) ng/mL Total Protein (6.3-8.2) g/dL Albumin (3.5-5.0) g/dL 03/28/19 Range/Units 06:43 RBC (3.80-5.40) m/uL Hgb (11.4-16.0) gm/dL Hct (34.0-46.0) % MCV (80.0-100.0) fL MCH (25.0-35.0) pg Plt Count (150-450) k/uL Sodium 133 L (137-145) mmol/L Carbon Dioxide 18 L (22-30) mmol/L BUN 35 H (7-17) mg/dL Creatinine 1.55 H (0.52-1.04) mg/dL Glucose 147 H (74-99) mg/dL POC Glucose (mg/dL) (75-99) mg/dL Total Bilirubin (0.2-1.3) mg/dL AST 54 H (14-36) U/L Alkaline Phosphatase 236 H (38-126) U/L Troponin I (0.000-0.034) ng/mL Total Protein 5.9 L (6.3-8.2) g/dL Albumin 2.7 L (3.5-5.0) g/dL Thrombosis Risk Factor Assmnt - Choose All That Apply Any of the Below Risk Factors Present?: Yes Each Factor Represents 1 point: Obesity (BMI >25) Other Risk Factors: Yes Each Risk Factor Represents 2 Points: Age 61-74 years, Malignancy Other congenital or acquired thrombophilia - If yes, enter type in comment: No Thrombosis Risk Factor Assessment Total Risk Factor Score: 5 Thrombosis Risk Factor Assessment Level: High Risk Assessment and Plan Assessment: 1. Acute on chronic abdominal pain. CT of abdomen completed showing again seen cirrhotic liver. There are stable metastatic lesions seen in hepatic segment 6 measuring 5.3 cm in segment 4A measuring up to 4.. There are incompletely characterized. Consider liver protocol CT or MRI to exclude hepatocellular carcinoma clinically 2. Mildly elevated troponins. Cardiology services have been consulted 3. History of hepatic encephalopathy. Ammonia level has been ordered. Patient is maintained on lactulose 3 times a day 4. Acute on chronic kidney disease stage III. Creatinine on admission 1.8. Patient's Aldactone has been decreased during previous admission to 1 time daily 5. History of nonalcoholic liver cirrhosis with frequent vomiting or hepatocellular carcinoma status post chemoembolization 6. History of chronic abdominal pain due to recurring abdominal ascites 7. History of diverticulitis with ileostomy placement. Patient had been advised on multiple admissions to follow-up with [facility]. Patient has been unable to follow-up. Patient has been seen in the past by our surgical services requiring no further workup. 8. Chronic pancytopenia due to liver cancer secondary to her chronic liver cirrhosis 9. Insulin-dependent diabetes mellitus. Home medications have been resumed 10. Iron deficiency anemia continue iron supplement 11. Chronic elevated LFTs due to chronic liver malignancy DVT prophylaxis SCDs due to patient's thrombocytopenia. GI prophylaxis Protonix Time with Patient: Greater than 30 (Greater than 60% of the total time spent in counseling and coordination of care. I performed an examination of the patient and discussed their management with the Nurse Practitioner. I have reviewed the Nurse Practitioner's notes and agree with the documented findings and plan of care)
[2019-03-28 11:45] LABS: Glucose,Whole Blood 212 mg/dL (75-99)
[2019-03-28] MEDS: INSULIN REGULAR 100 UNIT/ML VIAL SQ SCH ×2 (13:47→18:08)
--- NOTE | 2019-03-28 14:27 | P.CONS ---
History of Present Illness - Reason for Consult Consult date: 03/28/19 hx: hcc Requesting physician: Kanchan Bartholomew - Chief Complaint abd pain - History of Present Illness Ms. Keenan is a pleasant 73 year old female who was initially introduced to our service at recent hospitalization in 11/01. She has a known history of Hepatocellular carcinoma, originally diagnosed through [facility]. At her last hospitalization we were not able to obtain all of her medical records until now as she has been seen and treated at many different outside hospitals since her initial diagnosis. Medical Surgical History includes: Diverticulitis in 2010 with perforation colectomy, ileostomy, left lateral liver hepatocellular carcinoma, non-alcoholic liver cirrhosis (per patient diagnosis in 2002), Thrombocytopenia, Anemia, Hypertension, Diabetes Mellitus, OA, Mood Disorder, depression, Chronic Pain. Cholecystectomy, Appendectomy, Exp Lap with lysis of adhesions, Total abdominal hysterectomy, C-sections. 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 [facility] was consulted as well on intial pathology. It was felt to be an unusual appearing neoplasm at [facility] as hepato cellular parenchyma exhibited heavily lipidized cells by collagen and lymphoid response. Note she has history of an existing ileostomy due to dicerticulitis perforation in 2010, where colectomy and ileostomy was completed on 09/11/2011 04/18/2013 - Admitted to [facility] - under Dr. Desai with intent to resect liver mass, ex lap performed but excision of mass was not able to be performed Sometime between 2012--2014 she was treated with Chemoembolization (per patient at [facility]) She was also seen and treated by Dr. Varela during this time 2015: Seen at [facility] and again in 2016 she consulted with yet another hematology, oncologist Dr. Greg Bear in November 2016. 02/2016 - Ablation liver mass (unknown hospital) 06/2016 - Was evaluated at [facility] by Gastroenterology when a repeat liver biopsy was performed. Resulted with well-differentiated Hepatocellular Carcinoma 10/2016 Underwent Chemoembolization to left hepatic lobe with Interventional Radiology 08/2018 - She was evaluated at [facility] Right Hepatic Lobe Biopsy was performed - Well differentiated Hepatocellular Carcinoma and new 4.3cm right hepatic mass and underwent chemoembolization at this facility in August. At this time she also consulted with Medical Oncologist Dr. Ar Julio. She has had multiple admissions for abdominal pain, and recurrent ascites. She has had multiple paracenteses with cytology negative. This is felt to be related to her known cirrhosis. Her pain is not felt to be related to her HCC, and appears to be due to hernia related to her stoma, exacerbated by jasmyn recurrent ascites. She has had multiple office appointments made but has not kept them due to recurrent hospital admissions She was advised to f/u with her surgeon at [facility], and states she has an appointment with a physician from that group Ms. Keenan has had 14 presentations to the emergency and admissions through Emergency since October 2018. her home situation has been addressed, psychiatry and social work have also evaluated. Review of Systems A 14 point review of systems was assessed and completed and are all negative except for HPI Past Medical History Past Medical History: Cancer, Diabetes Mellitus, GERD/Reflux, Hypertension, Liver Disease, Myocardial Infarction ([place]), Renal Disease Additional Past Medical History / Comment(s): Hepatocellular liver cancer with chemo immobilizations-last time being 2017, ascities with paracentesis's, nonalcoholic liver cirrhosis, chronic pancytopenia, chronic elevated ammonia levels, hepatic encephalopathy, chronic elevated LFTs, chronic abdominal pain, stomach ulcer, diverticular disease with ileostomy, IDDM type II, iron anemia, CKD stage III, nonsustained vtach, UTI Last Myocardial Infarction Date:: unk History of Any Multi-Drug Resistant Organisms: MRSA Year Discovered:: 12/30/18 MDRO Source:: MRSA URINE Past Surgical History: Appendectomy, Bowel Resection, Section, Cholecystectomy, Hysterectomy, Tonsillectomy Additional Past Surgical History / Comment(s): Chemo immobilizations, liver biopsies, paracentesis, bowel resection d/t diverticulitis/ileostomy, R rotator cuff repair, carpal tunnel release-laterality unknown. Past Anesthesia/Blood Transfusion Reactions: No Reported Reaction Past Psychological History: Anxiety, Depression Smoking Status: Former smoker Past Alcohol Use History: None Reported Past Drug Use History: None Reported - Past Family History Mother History Unknown: Yes Family Medical History: Congestive Heart Failure (CHF) Additional Family Medical History / Comment(s): Mother is 94 yrs old. Father Family Medical History: Chest Pain / Angina Additional Family Medical History / Comment(s): Father is . Medications and Allergies Home Medications Medication Instructions Recorded Confirmed Type Dicyclomine [Bentyl] 10 mg PO TID 10/23/18 03/27/19 History Omeprazole [PriLOSEC] 20 mg PO BID 10/23/18 03/27/19 History Sucralfate [Carafate] 1 gm PO QID 10/23/18 03/27/19 History Insulin Regular, Human [NovoLIN R] 10 unit SQ AC-TID 10/24/18 03/27/19 History buPROPion SR [Wellbutrin SR] 150 mg PO DAILY #30 tablet.er 12/21/18 03/27/19 Rx Magnesium Oxide [William] 500 mg PO DAILY 12/30/18 03/27/19 History Torsemide [Demadex] 20 mg PO DAILY 30 Days #30 tab 01/09/19 03/27/19 Rx Cholecalciferol [Vitamin D3 (25 4,000 unit PO DAILY 01/16/19 03/27/19 History Mcg = 1000 Iu)] Ferrous Sulfate [Iron (65 MG 325 mg PO BID 01/31/19 03/27/19 History Elemental)] Insulin NPH [humuLIN N] 18 unit SQ BID vial 02/06/19 03/27/19 Rx Metoprolol Tartrate [Lopressor] 12.5 mg PO BID #0 tab 03/06/19 03/27/19 Rx Morphine Sulfate ER [Ms Contin] 15 mg PO Q12HR 3 Days #6 tablet 03/06/19 03/27/19 Rx clonazePAM [KlonoPIN] 0.5 mg PO DAILY PRN #3 tab 03/06/19 03/27/19 Rx Lactulose [Cephulac] 30 gm PO TID ml 03/26/19 03/28/19 Rx Spironolactone [Aldactone] 50 mg PO DAILY #60 tab 03/26/19 03/27/19 Rx Allergies Allergy/AdvReac Type Severity Reaction Status Date / Time amlodipine Allergy Rash/Hives Verified 03/27/19 21:26 oxycodone Allergy Rash/Hives Verified 03/27/19 21:26 Penicillins Allergy Rash/Hives Verified 03/27/19 21:26 hydromorphone [From Dilaudid] AdvReac Mild tactile Verified 03/27/19 21:26 disturbance GREG Inhibitors AdvReac Cough Verified 03/27/19 21:26 sodium dodecyclbenzene Allergy Rash/Hives Uncoded 03/27/19 21:04 sulfonate Physical Exam Vitals: Vital Signs Temp Pulse Pulse Resp BP BP Pulse Ox 03/28/19 11:14 98.4 F 56 L 18 99/58 99 03/28/19 08:00 97.6 F 58 L 16 109/61 100 03/28/19 04:35 97.5 F L 55 L 15 99/48 98 03/28/19 02:37 97.3 F L 55 L 15 103/73 99 03/28/19 01:22 55 L 18 105/44 96 03/27/19 23:00 59 L 16 113/62 97 03/27/19 22:40 98.7 F 55 L 16 105/67 97 03/27/19 21:11 16 03/27/19 21:02 100.0 F H 56 L 18 126/65 100 Intake and Output 03/27/19 03/28/19 03/28/19 22:59 06:59 14:59 Intake Total 50 480 Balance 50 480 Intake: Amount of Fluid Infused ( 50 ml) Oral 480 Other: Voiding Method Toilet Weight 86.183 kg 86.9 kg Constitutional General appearance: no acute distress - EENT Eyes: EOMI, PERRLA ENT: hearing grossly normal, normal oropharynx - Neck Neck: no lymphadenopathy Thyroid: bilateral: normal size - Respiratory Respiratory: bilateral: CTA - Cardiovascular Rhythm: regular Heart sounds: normal: S1, S2 - Gastrointestinal Right lower quadrant ostomy General gastrointestinal: distended, normal bowel sounds, soft - Integumentary Integumentary: normal - Neurologic Neurologic: CNII-XII intact - Musculoskeletal Musculoskeletal: generalized weakness, strength equal bilaterally - Psychiatric Psychiatric: Sleepy, poor historian Results CBC & Chem 7: 03/28/19 06:43 03/28/19 06:43 Labs: Abnormal Lab Results - Last 24 Hours (Table) 03/27/19 03/27/19 03/27/19 Range/Units 22:13 22:13 22:13 RBC 3.58 L (3.80-5.40) m/uL Hgb (11.4-16.0) gm/dL Hct (34.0-46.0) % MCV 106.4 H (80.0-100.0) fL MCH 35.2 H (25.0-35.0) pg Plt Count 68 L (150-450) k/uL Sodium 133 L (137-145) mmol/L Carbon Dioxide 19 L (22-30) mmol/L BUN 34 H (7-17) mg/dL Creatinine 1.81 H (0.52-1.04) mg/dL Glucose 160 H (74-99) mg/dL POC Glucose (mg/dL) (75-99) mg/dL Total Bilirubin 2.0 H (0.2-1.3) mg/dL AST 62 H (14-36) U/L Alkaline Phosphatase 278 H (38-126) U/L Troponin I 0.066 H* (0.000-0.034) ng/mL Total Protein (6.3-8.2) g/dL Albumin 3.1 L (3.5-5.0) g/dL 03/28/19 03/28/19 03/28/19 Range/Units 02:28 06:43 06:43 RBC 3.13 L (3.80-5.40) m/uL Hgb 11.3 L (11.4-16.0) gm/dL Hct 33.4 L (34.0-46.0) % MCV 106.7 H (80.0-100.0) fL MCH 36.2 H (25.0-35.0) pg Plt Count 52 L (150-450) k/uL Sodium (137-145) mmol/L Carbon Dioxide (22-30) mmol/L BUN (7-17) mg/dL Creatinine (0.52-1.04) mg/dL Glucose (74-99) mg/dL POC Glucose (mg/dL) 147 H (75-99) mg/dL Total Bilirubin (0.2-1.3) mg/dL AST (14-36) U/L Alkaline Phosphatase (38-126) U/L Troponin I 0.065 H* (0.000-0.034) ng/mL Total Protein (6.3-8.2) g/dL Albumin (3.5-5.0) g/dL 03/28/19 03/28/19 03/28/19 Range/Units 06:43 10:32 11:39 RBC (3.80-5.40) m/uL Hgb (11.4-16.0) gm/dL Hct (34.0-46.0) % MCV (80.0-100.0) fL MCH (25.0-35.0) pg Plt Count (150-450) k/uL Sodium 133 L (137-145) mmol/L Carbon Dioxide 18 L (22-30) mmol/L BUN 35 H (7-17) mg/dL Creatinine 1.55 H (0.52-1.04) mg/dL Glucose 147 H (74-99) mg/dL POC Glucose (mg/dL) 212 H (75-99) mg/dL Total Bilirubin (0.2-1.3) mg/dL AST 54 H (14-36) U/L Alkaline Phosphatase 236 H (38-126) U/L Troponin I 0.063 H* (0.000-0.034) ng/mL Total Protein 5.9 L (6.3-8.2) g/dL Albumin 2.7 L (3.5-5.0) g/dL Comments: CT of the abdomen and pelvis reviewed no changes in her size of liver mass with her known history of hepatocellular cancer extensive cirrhosis as normal does not mention any acute etiology for her complaint CT scan - abdomen: report reviewed CT scan - pelvis: report reviewed Assessment and Plan Plan: 1. Hepatocellular Carcinoma - Status Post Chemoembolization: 2012, 2015 and recent 2017 - Multiple medical opinions from multiple outside hospitals - Currently Monitoring as no active evidence of disease 2. Recurrent abdominal pain related admission: Recurrent admission, despite education and outpatient plan, remediation again provided. - I recommend keeping her on PO Pain medication without IV Bous for breakthrough as she will need to control at home - Recommend PRN standing order Weekly Paracentesis, this is not related to cancer but underlying liver disease, cirrhosis. - Inconsistent and unclear: Likely multifactoral - Recurrent Ascites - Requiring Paracentesis, Recent MRSA Stools, Diarrhea 3. Abdominal Ascites: Status Post Paracentesis prn - Recommend PRN Standing order for outpatient paracentesis - Recent Paracentesis was negative for malignant cells 4. Recurrent Emergency Visits and Hospitalizations: - 14admissions since 2017, prior to that multiple different hospital opinions and visits throughout [place] 5. Hepatic Encephalopathy: improved - Lactulose per GI and Primary team. - Patient will benefit from close outpatient GI monitoring. 6. Bloody Stool - Monitor Hemoglobin - stable Plan: - Recheck AFP - If greater than 3 months resonable to recheck HCC lesion with MRI with contrast - Other issues and co-morbidies per primary team
[2019-03-28 16:45] LABS: Glucose,Whole Blood 208 mg/dL (75-99)
[2019-03-28 20:14] LABS: Glucose,Whole Blood 174 mg/dL (75-99)
[2019-03-29] MEDS: PANTOPRAZOLE 40 MG TABLET PO SCH (06:17)
[2019-03-29 06:22] LABS: Glucose,Whole Blood 103 mg/dL (75-99)
[2019-03-29] MEDS: INSULIN REGULAR 100 UNIT/ML VIAL SQ SCH ×3 (07:18→17:41)
[2019-03-29 07:19] LABS: Basophils % (A) 1 %; Eosinophils # (A) 0.2 k/uL (0-0.7); Eosinophils % (A) 4 %; HCT 34.5 % (34.0-46.0); HGB 11.5 gm/dL (11.4-16.0); Lymphocytes # (A) 1.4 k/uL (1.0-4.8); Lymphocytes % (A) 26 %; MCH 35.4 pg (25.0-35.0); MCHC 33.4 g/dL (31.0-37.0); MCV 105.8 fL (80.0-100.0); Macrocytosis Moderate; Mean Platelet Volume 9.6; Monocytes # (A) 0.4 k/uL (0-1.0); Monocytes % (A) 8 %; Neutrophils # (A) 3.1 k/uL (1.3-7.7); Neutrophils % (A) 59 %; RBC 3.26 m/uL (3.80-5.40); RDW 15.2 % (11.5-15.5); WBC 5.3 k/uL (3.8-10.6)
[2019-03-29 07:22] LABS: Platelet Count 52 k/uL (150-450)
[2019-03-29 07:40] LABS: Albumin 2.8 g/dL (3.5-5.0); Calcium 8.6 mg/dL (8.4-10.2); Magnesium 2.1 mg/dL (1.6-2.3); Potassium 4.9 mmol/L (3.5-5.1); Total Bilirubin 1.9 mg/dL (0.2-1.3); Total Protein 6.2 g/dL (6.3-8.2)
[2019-03-29] MEDS: MAGNESIUM OXIDE 400 MG TAB PO SCH (08:17)
[2019-03-29] MEDS: DICYCLOMINE 10 MG CAP PO SCH ×3 (08:17→20:33)
[2019-03-29] MEDS: FERROUS SULFATE 325 MG TAB PO SCH ×2 (08:17→20:33)
[2019-03-29] MEDS: LACTULOSE 20 GM/30 ML CUP PO SCH ×3 (08:17→21:37)
[2019-03-29] MEDS: SUCRALFATE 1 GM TAB PO SCH ×4 (08:17→20:34)
[2019-03-29] MEDS: METOPROLOL TARTRATE 12.5 MG TAB PO SCH ×2 (08:17→20:33)
[2019-03-29] MEDS: buPROPion SR 150 MG TABLET.ER PO SCH (08:18)
[2019-03-29] MEDS: CHOLECALCIFEROL 1,000 UNIT TAB PO SCH (08:18)
[2019-03-29] MEDS: MORPHINE SULFATE ER 15 MG TABLET PO SCH ×2 (08:18→20:34)
[2019-03-29] MEDS: INSULIN NPH 300 UNIT/3 ML VIAL SQ SCH ×2 (08:19→21:37)
--- NOTE | 2019-03-29 11:30 | P.PN ---
Subjective Progress Note Date: 03/29/19 This is a 73-year-old female patient of Dr. Anthony. Patient presented with complaints of abdominal pain. Patient has known history of chronic abdominal pain due to her hepatocellular carcinoma. Patient was noted to have mild elevation in troponin. Patient has a known past medical history of hepatocell ular liver cancer with chemo immobilization for diabetes mellitus, GERD, hypertension, liver disease, myocardial infarction, renal disease iron deficiency anemia, MRSA in the urine, anxiety and depression. CT of abdomen and pelvis completed showing again cirrhotic liver. There is a stable masslike lesion seen at hepatic segment 6 measuring up to 5.3 cm in segment 4A measuring up to 4 cm these are incompletely characterized. Consider liver protocol CT or MRI to exclude hepatocellular carcinoma if clinically indicated. Cardiology services have been consulted. At this time patient denies chest pain or shortness of breath. Patient is complaining of follow-up at [facility] with surgeon for her ostomy. Patient denies any urinary burning or frequency. On 03/29/2019 patient is alert and oriented 3. Patient states she feels slightly improved. This time patient denies chest pain or shortness breath. Patient denies nausea vomiting or diarrhea. Patient denies any urinary burning or frequency Objective - Vital Signs Vital signs: Vital Signs Temp 98.6 F 03/29/19 08:00 Pulse 55 L 03/29/19 08:00 Resp 18 03/29/19 08:00 BP 105/57 03/29/19 08:00 Pulse Ox 98 03/29/19 08:00 Intake & Output 03/28/19 03/29/19 03/29/19 18:59 06:59 18:59 Intake Total 720 500 480 Output Total 400 Balance 720 100 480 Weight 86.9 kg Intake: Oral 720 500 480 Output: Stool 400 Other: Voiding Method Toilet # Voids 2 - Exam Head normocephalic Neck supple Lungs clear to auscultation bilaterally no wheezing or crackles Heart regular rate and rhythm S1-S2, no rub or gallop Abdomen is soft nontender nondistended positive bowel sounds no hepatosplenomegaly. Ostomy in place Extremities no edema Neuro alert and orientated to 3 - Labs CBC & Chem 7: 03/29/19 06:56 03/29/19 06:56 Labs: Abnormal Lab Results - Last 24 Hours (Table) 03/28/19 03/28/1919 Range/Units 10:32 11:39 16:41 RBC (3.80-5.40) m/uL MCV (80.0-100.0) fL MCH (25.0-35.0) pg Plt Count (150-450) k/uL Sodium (137-145) mmol/L Chloride (98-107) mmol/L BUN (7-17) mg/dL Creatinine (0.52-1.04) mg/dL POC Glucose (mg/dL) 212 H 208 H (75-99) mg/dL Total Bilirubin (0.2-1.3) mg/dL AST (14-36) U/L Alkaline Phosphatase (38-126) U/L Troponin I 0.063 H* (0.000-0.034) ng/mL Total Protein (6.3-8.2) g/dL Albumin (3.5-5.0) g/dL 03/28/19 03/28/19 03/29/19 Range/Units 18:55 20:13 06:21 RBC (3.80-5.40) m/uL MCV (80.0-100.0) fL MCH (25.0-35.0) pg Plt Count (150-450) k/uL Sodium (137-145) mmol/L Chloride (98-107) mmol/L BUN (7-17) mg/dL Creatinine (0.52-1.04) mg/dL POC Glucose (mg/dL) 174 H 103 H (75-99) mg/dL Total Bilirubin (0.2-1.3) mg/dL AST (14-36) U/L Alkaline Phosphatase (38-126) U/L Troponin I 0.053 H* (0.000-0.034) ng/mL Total Protein (6.3-8.2) g/dL Albumin (3.5-5.0) g/dL 03/29/19 03/29/19 Range/Units 06:56 06:56 RBC 3.26 L (3.80-5.40) m/uL MCV 105.8 H (80.0-100.0) fL MCH 35.4 H (25.0-35.0) pg Plt Count 52 L (150-450) k/uL Sodium 136 L (137-145) mmol/L Chloride 110 H (98-107) mmol/L BUN 26 H (7-17) mg/dL Creatinine 1.37 H (0.52-1.04) mg/dL POC Glucose (mg/dL) (75-99) mg/dL Total Bilirubin 1.9 H (0.2-1.3) mg/dL AST 57 H (14-36) U/L Alkaline Phosphatase 279 H (38-126) U/L Troponin I (0.000-0.034) ng/mL Total Protein 6.2 L (6.3-8.2) g/dL Albumin 2.8 L (3.5-5.0) g/dL Microbiology - Last 24 Hours (Table) 03/27/19 22:13 Blood Culture - Preliminary Blood No Growth after 24 hours Assessment and Plan Assessment: 1. Acute on chronic abdominal pain. CT of abdomen completed showing again seen cirrhotic liver. There are stable metastatic lesions seen in hepatic segment 6 measuring 5.3 cm in segment 4A measuring up to 4.. There are incompletely characterized. Consider liver protocol CT or MRI to exclude hepatocellular carcinoma clinically. GI services have been consulted 2. Mildly elevated troponins. Per cardiology abnormality in troponin negative cystoscopy with acute coronary syndrome. 3. History of hepatic encephalopathy. Ammonia level 20. Patient is maintained on lactulose 3 times a day 4. Acute on chronic kidney disease stage III. Creatinine on admission 1.8. Patient's Aldactone has been decreased during previous admission to 1 time daily 5. History of nonalcoholic liver cirrhosis with frequent vomiting or hepatocellular carcinoma status post chemoembolization. oncology services are following 6. History of chronic abdominal pain due to recurring abdominal ascites 7. History of diverticulitis with ileostomy placement. Patient had been advised on multiple admissions to follow-up with [facility]. Patient has been unable to follow-up. Patient has been seen in the past by our surgical services requiring no further workup. 8. Chronic pancytopenia due to liver cancer secondary to her chronic liver cirrhosis 9. Insulin-dependent diabetes mellitus. Home medications have been resumed 10. Iron deficiency anemia continue iron supplement 11. Chronic elevated LFTs due to chronic liver malignancy DVT prophylaxis SCDs due to patient's thrombocytopenia. GI prophylaxis Protonix I performed an examination of the patient and discussed their management with the Nurse Practitioner. I have reviewed the Nurse Practitioner's notes and agree with the documented findings and plan of care
[2019-03-29 11:56] LABS: Glucose,Whole Blood 240 mg/dL (75-99)
[2019-03-29] MEDS ORDERED: SPIRONOLACTONE 25 MG TAB PO SCH (13:15)
--- NOTE | 2019-03-29 14:16 | P.CONS ---
History of Present Illness - Reason for Consult Consult date: 03/29/19 abdominal pain Requesting physician: Artemio Lea - Chief Complaint abdominal pain - History of Present Illness 73-year-old female with a history of hepatocellular carcinoma status post chemoembolization, underlying nonalcoholic liver cirrhosis, portal hypertension, hepatic encephalopathy, chronic ascites paracentesis, colonic diverticular disease with ileostomy placement, chronic abdominal pain, chronic kidney disease admitted with abdominal pain. CT abdomen and cirrhotic liver stable masslike lesions with known HCC disease. Denies fever chills hematemesis hematochezia melena. No shortness of breath or chest pain. Ostomy functioning well. White count 5.3. Hemoglobin 11.5. Platelet 52,000. INR 1.3. Total bilirubin 1.9. AST 57. ALT 37. Repeat 79. AFP less than 2.5. Ammonia 20. Review of Systems REVIEW OF SYSTEMS: CONSTITUTIONAL: Denies any fevers, chills, weight change report weakness and shaking on presentation. CARDIOVASCULAR: Denies any chest pain, palpitations high or low blood pressures RESPIRATORY: Denies any shortness of breath, hemoptysis or cough. GENITOURINARY: No dysuria or hematuria. MUSCULOSKELETAL: No weakness reported. SKIN: Denies any new rashes or lesions, jaundice or pallor. PSYCHIATRIC: Denies any depression or anxiety. NEUROLOGY: Denies headache, denies any new focal deficits. EARS/NOSE/THROAT: No recent hearing change, congestion, nasal discharge or sore throat. EYES: No pain in eyes, discharge or change in vision. GASTROINTESTINAL: As per HPI Past Medical History Past Medical History: Cancer, Diabetes Mellitus, GERD/Reflux, Hypertension, Liver Disease, Myocardial Infarction (DC), Renal Disease Additional Past Medical History / Comment(s): Hepatocellular liver cancer with chemo immobilizations-last time being 2018, ascities with paracentesis's, nonalcoholic liver cirrhosis, chronic pancytopenia, chronic elevated ammonia levels, hepatic encephalopathy, chronic elevated LFTs, chronic abdominal pain, stomach ulcer, diverticular disease with ileostomy, IDDM type II, iron anemia, CKD stage III, nonsustained vtach, UTI Last Myocardial Infarction Date:: unk History of Any Multi-Drug Resistant Organisms: MRSA Year Discovered:: 12/30/18 MDRO Source:: MRSA URINE Past Surgical History: Appendectomy, Bowel Resection, Section, Cholecystectomy, Hysterectomy, Tonsillectomy Additional Past Surgical History / Comment(s): Chemo immobilizations, liver biopsies, paracentesis, bowel resection d/t diverticulitis/ileostomy, R rotator cuff repair, carpal tunnel release-laterality unknown. Past Anesthesia/Blood Transfusion Reactions: No Reported Reaction Past Psychological History: Anxiety, Depression Smoking Status: Former smoker Past Alcohol Use History: None Reported Past Drug Use History: None Reported - Past Family History Mother History Unknown: Yes Family Medical History: Congestive Heart Failure (CHF) Additional Family Medical History / Comment(s): Mother is 94 yrs old. Father Family Medical History: Chest Pain / Angina Additional Family Medical History / Comment(s): Father is . Medications and Allergies Home Medications Medication Instructions Recorded Confirmed Type Dicyclomine [Bentyl] 10 mg PO TID 10/23/18 03/27/19 History Omeprazole [PriLOSEC] 20 mg PO BID 10/23/18 03/27/19 History Sucralfate [Carafate] 1 gm PO QID 10/23/18 03/27/19 History Insulin Regular, Human [NovoLIN R] 10 unit SQ AC-TID 10/24/18 03/27/19 History buPROPion SR [Wellbutrin SR] 150 mg PO DAILY #30 tablet.er 12/21/18 03/27/19 Rx Magnesium Oxide [William] 500 mg PO DAILY 12/30/18 03/27/19 History Torsemide [Demadex] 20 mg PO DAILY 30 Days #30 tab 01/09/19 03/27/19 Rx Cholecalciferol [Vitamin D3 (25 4,000 unit PO DAILY 01/16/19 03/27/19 History Mcg = 1000 Iu)] Ferrous Sulfate [Iron (65 MG 325 mg PO BID 01/31/19 03/27/19 History Elemental)] Insulin NPH [humuLIN N] 18 unit SQ BID vial 02/06/19 03/27/19 Rx Metoprolol Tartrate [Lopressor] 12.5 mg PO BID #0 tab 03/06/19 03/27/19 Rx Morphine Sulfate ER [Ms Contin] 15 mg PO Q12HR 3 Days #6 tablet 03/06/19 Rx clonazePAM [KlonoPIN] 0.5 mg PO DAILY PRN #3 tab 03/06/19 03/27/19 Rx Lactulose [Cephulac] 30 gm PO TID ml 03/26/19 03/28/19 Rx Spironolactone [Aldactone] 50 mg PO DAILY #60 tab 03/26/19 03/27/19 Rx Allergies Allergy/AdvReac Type Severity Reaction Status Date / Time amlodipine Allergy Rash/Hives Verified 03/27/19 21:26 oxycodone Allergy Rash/Hives Verified 03/27/19 21:26 Penicillins Allergy Rash/Hives Verified 03/27/19 21:26 hydromorphone [From Dilaudid] AdvReac Mild tactile Verified 03/27/19 21:26 disturbance GREG Inhibitors AdvReac Cough Verified 03/27/19 21:26 sodium dodecyclbenzene Allergy Rash/Hives Uncoded 03/27/19 21:04 sulfonate Physical Exam Vitals: Vital Signs Temp Pulse Resp BP Pulse Ox 03/29/19 11:57 50 L 18 104/55 99 03/29/19 08:00 98.6 F 55 L 18 105/57 98 03/29/19 04:00 98.2 F 55 L 20 102/52 98 03/28/19 22:41 98.7 F 58 L 20 95/50 98 03/28/19 22:37 58 L 20 03/28/19 19:47 57 L 20 03/28/19 19:41 99 F 57 L 20 102/58 98 03/28/19 16:00 97.9 F 56 L 18 100/48 96 Intake and Output 03/28/19 03/29/19 03/29/19 22:59 06:59 14:59 Intake Total 740 0 960 Output Total 400 Balance 740 -400 960 Intake: Oral 740 0 960 Output: Stool 400 Other: Voiding Method Toilet Toilet # Voids 1 2 Weight 86.9 kg On physical examination, patient appears comfortable in no apparent distress. HEAD: Normocephalic, atraumatic. EYES: No scleral icterus. No conjunctival injection. MOUTH: No lesions, tongue midline. NECK: Trachea midline, no gross abnormalities. CHEST: Decreased air entry in all lung simon. HEART: S1-S2 appreciated. ABDOMEN: Soft, obese with ostomy on the right side of her abdomen-appearing intact with good stool output. Bowel sounds are positive. No organomegaly. No guarding or rigidity. EXTREMITIES: Bilateral pedal edema. SKIN: No rashes, no jaundice. NEUROLOGIC: Alert and oriented x3. Results CBC & Chem 7: 03/29/19 06:56 03/29/19 06:56 Labs: Abnormal Lab Results - Last 24 Hours (Table) 03/28/19 03/28/19 03/28/19 Range/Units 16:41 18:55 20:13 RBC (3.80-5.40) m/uL MCV (80.0-100.0) fL MCH (25.0-35.0) pg Plt Count (150-450) k/uL Sodium (137-145) mmol/L Chloride (98-107) mmol/L BUN (7-17) mg/dL Creatinine (0.52-1.04) mg/dL POC Glucose (mg/dL) 208 H 174 H (75-99) mg/dL Total Bilirubin (0.2-1.3) mg/dL AST (14-36) U/L Alkaline Phosphatase (38-126) U/L Troponin I 0.053 H* (0.000-0.034) ng/mL Total Protein (6.3-8.2) g/dL Albumin (3.5-5.0) g/dL 03/29/19 03/29/19 03/29/19 Range/Units 06:21 06:56 06:56 RBC 3.26 L (3.80-5.40) m/uL MCV 105.8 H (80.0-100.0) fL MCH 35.4 H (25.0-35.0) pg Plt Count 52 L (150-450) k/uL Sodium 136 L (137-145) mmol/L Chloride 110 H (98-107) mmol/L BUN 26 H (7-17) mg/dL Creatinine 1.37 H (0.52-1.04) mg/dL POC Glucose (mg/dL) 103 H (75-99) mg/dL Total Bilirubin 1.9 H (0.2-1.3) mg/dL AST 57 H (14-36) U/L Alkaline Phosphatase 279 H (38-126) U/L Troponin I (0.000-0.034) ng/mL Total Protein 6.2 L (6.3-8.2) g/dL Albumin 2.8 L (3.5-5.0) g/dL 03/29/19 Range/Units 11:54 RBC (3.80-5.40) m/uL MCV (80.0-100.0) fL MCH (25.0-35.0) pg Plt Count (150-450) k/uL Sodium (137-145) mmol/L Chloride (98-107) mmol/L BUN (7-17) mg/dL Creatinine (0.52-1.04) mg/dL POC Glucose (mg/dL) 240 H (75-99) mg/dL Total Bilirubin (0.2-1.3) mg/dL AST (14-36) U/L Alkaline Phosphatase (38-126) U/L Troponin I (0.000-0.034) ng/mL Total Protein (6.3-8.2) g/dL Albumin (3.5-5.0) g/dL Microbiology - Last 24 Hours (Table) 03/27/19 22:13 Blood Culture - Preliminary Blood No Growth after [address] scan - abdomen: report reviewed (Dr. Francois) Assessment and Plan (1) Abdominal pain Narrative/Plan: 73-year-old female with a history of hepatocellular carcinoma underlying nonalcoholic liver cirrhosis ascites and chronic abdominal pain presents with acute abdominal pain etiology unclear possible IBS. CT abdomen reports findings consistent with cirrhotic liver and hepatic masses with known history of HCC. Abdominal pain is improved. Current Visit: Yes Status: Acute Priority: High Code(s): R10.9 - UNSPECIFIED ABDOMINAL PAIN SNOMED Code(s): 71819864 (2) Cirrhosis of liver with ascites Current Visit: No Status: Acute Code(s): K74.60 - UNSPECIFIED CIRRHOSIS OF LIVER; R18.8 - OTHER ASCITES SNOMED Code(s): 89896264 (3) History of liver cancer Current Visit: No Status: Acute Code(s): Z85.05 - PERSONAL HISTORY OF MALIGNANT NEOPLASM OF LIVER SNOMED Code(s): 637178484 Plan: 1. Continuous supportive measures. Continue home medications including Bentyl. We will increase Bentyl dosage to 20 mg 3 times a day. Patient was advised to follow up with the GI office after discharge for reevaluation outpatient MRI and discussion of outpatient paracentesis. Discharge per medicine. Thank you for this kind referral and the opportunity to participate in the care of your patient. This consultation was discussed with Dr. Francois. The impression and plan of care have been directed as dictated.
[2019-03-29 16:51] LABS: Glucose,Whole Blood 101 mg/dL (75-99)
[2019-03-29 21:53] LABS: Glucose,Whole Blood 188 mg/dL (75-99)
[2019-03-30 05:58] LABS: Glucose,Whole Blood 155 mg/dL (75-99)
[2019-03-30 06:22] LABS: Basophils % (A) 1 %; Eosinophils # (A) 0.2 k/uL (0-0.7); Eosinophils % (A) 4 %; HCT 36.9 % (34.0-46.0); HGB 11.6 gm/dL (11.4-16.0); Lymphocytes # (A) 1.3 k/uL (1.0-4.8); Lymphocytes % (A) 25 %; MCH 34.3 pg (25.0-35.0); MCHC 31.6 g/dL (31.0-37.0); Macrocytosis Marked; Mean Platelet Volume 9.3; Monocytes # (A) 0.4 k/uL (0-1.0); Monocytes % (A) 9 %; Neutrophils % (A) 59 %; RBC 3.39 m/uL (3.80-5.40); RDW 14.3 % (11.5-15.5)
[2019-03-30 06:30] LABS: MCV 108.7 fL (80.0-100.0); Platelet Count 54 k/uL (150-450)
[2019-03-30 06:41] LABS: Albumin 2.6 g/dL (3.5-5.0); Calcium 8.8 mg/dL (8.4-10.2); Potassium 5.9 mmol/L (3.5-5.1); Total Bilirubin 1.5 mg/dL (0.2-1.3)
[2019-03-30] MEDS: PANTOPRAZOLE 40 MG TABLET PO SCH (07:17)
[2019-03-30] MEDS: INSULIN REGULAR 100 UNIT/ML VIAL SQ SCH ×3 (07:17→17:28)
[2019-03-30] MEDS ORDERED: SODIUM POLYSTYRENE SULFONATE 15 GM/60 ML BOTTLE PO STA (08:17)
[2019-03-30] MEDS: INSULIN NPH 300 UNIT/3 ML VIAL SQ SCH ×2 (08:50→21:28)
[2019-03-30] MEDS: LACTULOSE 20 GM/30 ML CUP PO SCH ×3 (08:50→20:09)
[2019-03-30] MEDS: MAGNESIUM OXIDE 400 MG TAB PO SCH (08:51)
[2019-03-30] MEDS: CHOLECALCIFEROL 1,000 UNIT TAB PO SCH (08:51)
[2019-03-30] MEDS: METOPROLOL TARTRATE 12.5 MG TAB PO SCH ×2 (08:51→20:09)
[2019-03-30] MEDS: MORPHINE SULFATE ER 15 MG TABLET PO SCH ×2 (08:51→20:09)
[2019-03-30] MEDS: DICYCLOMINE 10 MG CAP PO SCH ×3 (08:52→20:08)
[2019-03-30] MEDS: SUCRALFATE 1 GM TAB PO SCH ×4 (08:52→20:09)
[2019-03-30] MEDS: buPROPion SR 150 MG TABLET.ER PO SCH (08:53)
[2019-03-30] MEDS: FERROUS SULFATE 325 MG TAB PO SCH ×2 (08:53→20:08)
[2019-03-30] MEDS: TORSEMIDE 20 MG TAB PO SCH (08:53)
[2019-03-30 11:03] LABS: Glucose,Whole Blood 131 mg/dL (75-99)
--- NOTE | 2019-03-30 12:10 | P.PN ---
Subjective Progress Note Date: 03/30/19 This is a 73-year-old female patient of Dr. Anthony. Patient presented with complaints of abdominal pain. Patient has known history of chronic abdominal pain due to her hepatocellular carcinoma. Patient was noted to have mild elevation in troponin. Patient has a known past medical history of hepatocell ular liver cancer with chemo immobilization for diabetes mellitus, GERD, hypertension, liver disease, myocardial infarction, renal disease iron deficiency anemia, MRSA in the urine, anxiety and depression. CT of abdomen and pelvis completed showing again cirrhotic liver. There is a stable masslike lesion seen at hepatic segment 6 measuring up to 5.3 cm in segment 4A measuring up to 4 cm these are incompletely characterized. Consider liver protocol CT or MRI to exclude hepatocellular carcinoma if clinically indicated. Cardiology services have been consulted. At this time patient denies chest pain or shortness of breath. Patient is complaining of follow-up at [facility] with surgeon for her ostomy. Patient denies any urinary burning or frequency. On 03/29/2019 patient is alert and oriented 3. Patient states she feels slightly improved. This time patient denies chest pain or shortness breath. Patient denies nausea vomiting or diarrhea. Patient denies any urinary burning or frequency On 03/30/2019 patient is alert and oriented 3. Patient is complaining of abdominal pain and nausea today. Patient reports she does not feel ready to go home. Patient potassium also elevated at 5.9. Aldactone DC'd. She refusing to drink Kayexalate. Repeat potassium ordered Objective - Vital Signs Vital signs: Vital Signs Temp 97.6 F 03/30/19 08:00 Pulse 46 L 03/30/19 08:00 Resp 16 03/30/19 08:00 BP 101/51 03/30/19 08:00 Pulse Ox 100 03/30/19 08:00 Intake & Output 03/29/19 03/30/19 03/30/19 18:59 06:59 18:59 Intake Total 0 220 Output Total 400 Balance 1939 -180 Weight 88.2 kg Intake: Oral 1939 220 Output: Stool 400 Other: Voiding Method Toilet Toilet # Voids 2 2 # Bowel Movements 1 - Exam Head normocephalic Neck supple Lungs clear to auscultation bilaterally no wheezing or crackles Heart regular rate and rhythm S1-S2, no rub or gallop Abdomen is soft nontender nondistended positive bowel sounds no hepatosplenomegaly. Ostomy in place Extremities no edema Neuro alert and orientated to 3 - Labs CBC & Chem 7: 03/30/19 05:39 03/30/19 11:00 Labs: Abnormal Lab Results - Last 24 Hours (Table) 03/29/19 03/29/19 03/30/19 Range/Units 16:42 21:03 05:39 RBC 3.39 L (3.80-5.40) m/uL MCV 108.7 H (80.0-100.0) fL Plt Count 54 L (150-450) k/uL Macrocytosis Marked A Sodium (137-145) mmol/L Potassium (3.5-5.1) mmol/L Chloride (98-107) mmol/L Carbon Dioxide (22-30) mmol/L BUN (7-17) mg/dL Creatinine (0.52-1.04) mg/dL Glucose (74-99) mg/dL POC Glucose (mg/dL) 101 H 188 H (75-99) mg/dL Total Bilirubin (0.2-1.3) mg/dL AST (14-36) U/L Alkaline Phosphatase (38-126) U/L Ammonia (<30) umol/L Total Protein (6.3-8.2) g/dL Albumin (3.5-5.0) g/dL 03/30/19 03/30/19 03/30/19 Range/Units 05:39 05:39 05:57 RBC (3.80-5.40) m/uL MCV (80.0-100.0) fL Plt Count (150-450) k/uL Macrocytosis Sodium 133 L (137-145) mmol/L Potassium 5.9 H (3.5-5.1) mmol/L Chloride 111 H (98-107) mmol/L Carbon Dioxide 19 L (22-30) mmol/L BUN 20 H (7-17) mg/dL Creatinine 1.08 H (0.52-1.04) mg/dL Glucose 145 H (74-99) mg/dL POC Glucose (mg/dL) 155 H (75-99) mg/dL Total Bilirubin 1.5 H (0.2-1.3) mg/dL AST 71 H (14-36) U/L Alkaline Phosphatase 267 H (38-126) U/L Ammonia 38 H (<30) umol/L Total Protein 6.0 L (6.3-8.2) g/dL Albumin 2.6 L (3.5-5.0) g/dL 03/30/19 Range/Units 11:02 RBC (3.80-5.40) m/uL MCV (80.0-100.0) fL Plt Count (150-450) k/uL Macrocytosis Sodium (137-145) mmol/L Potassium (3.5-5.1) mmol/L Chloride (98-107) mmol/L Carbon Dioxide (22-30) mmol/L BUN (7-17) mg/dL Creatinine (0.52-1.04) mg/dL Glucose (74-99) mg/dL POC Glucose (mg/dL) 131 H (75-99) mg/dL Total Bilirubin (0.2-1.3) mg/dL AST (14-36) U/L Alkaline Phosphatase (38-126) U/L Ammonia (<30) umol/L Total Protein (6.3-8.2) g/dL Albumin (3.5-5.0) g/dL Microbiology - Last 24 Hours (Table) 03/27/19 22:13 Blood Culture - Preliminary Blood No Growth after 48 hours Assessment and Plan Assessment: 1. Acute on chronic abdominal pain. CT of abdomen completed showing again seen cirrhotic liver. There are stable metastatic lesions seen in hepatic segment 6 measuring 5.3 cm in segment 4A measuring up to 4.. There are incompletely characterized. Consider liver protocol CT or MRI to exclude hepatocellular carcinoma clinically. Per GI services continue supportive measure continue Bentyl. Patient follow-up with GI services for outpatient MRI and discussion of outpatient paracentesis is 2. Mildly elevated troponins. Per cardiology abnormality in troponin negative for a acute coronary syndrome. 3. History of hepatic encephalopathy. Ammonia level 20. Patient is maintained on lactulose 3 times a day 4. Acute on chronic kidney disease stage III. Creatinine on admission 1.8. Patient's Aldactone has been decreased during previous admission to 1 time daily 5. History of nonalcoholic liver cirrhosis with frequent vomiting or hepatocellular carcinoma status post chemoembolization. oncology services are following 6. History of chronic abdominal pain due to recurring abdominal ascites 7. History of diverticulitis with ileostomy placement. Patient had been advised on multiple admissions to follow-up with [facility]. Patient has been unable to follow-up. Patient has been seen in the past by our surgical services requiring no further workup. 8. Chronic pancytopenia due to liver cancer secondary to her chronic liver cirrhosis 9. Insulin-dependent diabetes mellitus. Home medications have been resumed 10. Iron deficiency anemia continue iron supplement 11. Chronic elevated LFTs due to chronic liver malignancy 12. Hyperkalemia. Potassium 5.9. Aldactone DC'd. Repeat potassium 4.6 DVT prophylaxis SCDs due to patient's thrombocytopenia. GI prophylaxis Protonix Despite discharge in the next 24-48 hours I performed an examination of the patient and discussed their management with the Nurse Practitioner. I have reviewed the Nurse Practitioner's notes and agree with the documented findings and plan of care
[2019-03-30] MEDS ORDERED: ONDANSETRON 4 MG/2 ML VIAL IVP PRN (15:24)
[2019-03-30 16:03] LABS: Glucose,Whole Blood 94 mg/dL (75-99)
[2019-03-30 20:53] LABS: Glucose,Whole Blood 154 mg/dL (75-99)
[2019-03-31 06:25] LABS: Glucose,Whole Blood 106 mg/dL (75-99)
[2019-03-31] MEDS: INSULIN REGULAR 100 UNIT/ML VIAL SQ SCH ×2 (07:09→12:18)
[2019-03-31] MEDS: PANTOPRAZOLE 40 MG TABLET PO SCH (07:10)
[2019-03-31 08:26] LABS: Basophils % (A) 0 %; Eosinophils # (A) 0.2 k/uL (0-0.7); Eosinophils % (A) 4 %; HCT 37.8 % (34.0-46.0); HGB 12.1 gm/dL (11.4-16.0); Lymphocytes # (A) 1.4 k/uL (1.0-4.8); Lymphocytes % (A) 24 %; MCH 34.4 pg (25.0-35.0); MCHC 32.1 g/dL (31.0-37.0); MCV 107.4 fL (80.0-100.0); Macrocytosis Moderate; Mean Platelet Volume 10.5; Monocytes # (A) 0.4 k/uL (0-1.0); Monocytes % (A) 7 %; Neutrophils # (A) 3.8 k/uL (1.3-7.7); Neutrophils % (A) 63 %; RBC 3.52 m/uL (3.80-5.40); RDW 15.1 % (11.5-15.5)
[2019-03-31 08:35] LABS: Platelet Count 52 k/uL (150-450)
[2019-03-31 08:44] LABS: Albumin 2.9 g/dL (3.5-5.0); Calcium 8.8 mg/dL (8.4-10.2); Potassium 5.1 mmol/L (3.5-5.1); Total Bilirubin 1.8 mg/dL (0.2-1.3); Total Protein 6.5 g/dL (6.3-8.2)
[2019-03-31] MEDS: MORPHINE SULFATE ER 15 MG TABLET PO SCH (09:15)
[2019-03-31] MEDS: MAGNESIUM OXIDE 400 MG TAB PO SCH (09:16)
[2019-03-31] MEDS: METOPROLOL TARTRATE 12.5 MG TAB PO SCH (09:16)
[2019-03-31] MEDS: CHOLECALCIFEROL 1,000 UNIT TAB PO SCH (09:16)
[2019-03-31] MEDS: FERROUS SULFATE 325 MG TAB PO SCH (09:16)
[2019-03-31] MEDS: DICYCLOMINE 10 MG CAP PO SCH (09:16)
[2019-03-31] MEDS: SUCRALFATE 1 GM TAB PO SCH ×2 (09:16→12:17)
[2019-03-31] MEDS: buPROPion SR 150 MG TABLET.ER PO SCH (09:17)
[2019-03-31] MEDS: TORSEMIDE 20 MG TAB PO SCH (09:17)
[2019-03-31] MEDS: INSULIN NPH 300 UNIT/3 ML VIAL SQ SCH (09:18)
[2019-03-31] MEDS: LACTULOSE 20 GM/30 ML CUP PO SCH (09:27)
[2019-03-31 11:34] LABS: Glucose,Whole Blood 172 mg/dL (75-99)
--- NOTE | 2019-03-31 12:10 | P.DS ---
Providers Date of admission: 03/28/19 01:55 Expected date of discharge: 03/31/19 Attending physician: Artemio Lea Consults: 03/28/19 01:27 Consult Physician Routine Consulting Provider: [facility] Consult Reason/Comments: Elevated Trop Do you want consulting provider notified?: Yes 03/28/19 12:46 Consult Physician Routine Consulting Provider: Cem Estrada Consult Reason/Comments: History of hepatocellular carcinoma Do you want consulting provider notified?: Yes Primary care physician: Gilma Martinez Hospital Course: Discharge diagnosis 1. Acute on chronic abdominal pain. CT of abdomen completed showing again seen cirrhotic liver. There are stable metastatic lesions seen in hepatic segment 6 measuring 5.3 cm in segment 4A measuring up to 4.. There are incompletely characterized. Consider liver protocol CT or MRI to exclude hepatocellular carcinoma clinically. Per GI services continue supportive measure continue Bentyl. Patient follow-up with GI services for outpatient MRI and discussion of outpatient paracentesis is. Bentyl has been increased per GI services 2. Mildly elevated troponins. Per cardiology abnormality in troponin negative for a acute coronary syndrome. 3. History of hepatic encephalopathy. Ammonia level 20. Patient is maintained on lactulose 3 times a day 4. Acute on chronic kidney disease stage III. Creatinine on admission 1.8. Patient's Aldactone has been decreased during previous admission to 1 time daily 5. 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 oncology services are following 6. History of chronic abdominal pain due to recurring abdominal ascites 7. History of diverticulitis with ileostomy placement. Patient had been advised on multiple admissions to follow-up with [facility]. Patient has been unable to follow-up. Patient has been seen in the past by our surgical services requiring no further workup. 8. Chronic pancytopenia due to liver cancer secondary to her chronic liver cirrhosis 9. Insulin-dependent diabetes mellitus. Home medications have been resumed 10. Iron deficiency anemia continue iron supplement 11. Chronic elevated LFTs due to chronic liver malignancy 12. Hyperkalemia. Potassium 5.9. Aldactone DC'd. Repeat potassium 4.6. Repeat BMP has been ordered for 3. Patient educated on consuming a low potassium diet 13. Bradycardia. Heart rate in the 40s and 50s. Per nursing staff cardiology is aware and would like to continue low-dose beta samy with parameters. Patient advised to follow-up closely with her PCP in consulting providers Hospital course This is a 73-year-old female patient of Dr. Anthony. Patient presented with complaints of abdominal pain. Patient has known history of chronic abdominal pain due to her hepatocellular carcinoma. Patient was noted to have mild elevation in troponin. Patient has a known past medical history of hepatocellular liver cancer with chemo immobilization for diabetes mellitus, GERD, hypertension, liver disease, myocardial infarction, renal disease iron deficiency anemia, MRSA in the urine, anxiety and depression. CT of abdomen and pelvis completed showing again cirrhotic liver. There is a stable masslike lesion seen at hepatic segment 6 measuring up to 5.3 cm in segment 4A measuring up to 4 cm these are incompletely characterized. Consider liver protocol CT or MRI to exclude hepatocellular carcinoma if clinically indicated. Cardiology services have been consulted. At this time patient denies chest pain or shortness of breath. Patient is complaining of follow-up at [facility] with surgeon for her ostomy. Patient denies any urinary burning or frequency. On 03/29/2019 patient is alert and oriented 3. Patient states she feels slightly improved. This time patient denies chest pain or shortness breath. Patient denies nausea vomiting or diarrhea. Patient denies any urinary burning or frequency On 03/30/2019 patient is alert and oriented 3. Patient is complaining of abdominal pain and nausea today. Patient reports she does not feel ready to go home. Patient potassium also elevated at 5.9. Aldactone DC'd. She refusing to drink Kayexalate. Repeat potassium ordered On 03/31/2019 patient is alert and oriented 3. Patient expresses that she feels ready and eager to go home. Patient has been cleared by consulting providers. Patient did have heart rate at 49 this AM. Did discuss with nursing staff and cardiology. Cardiology is aware of bradycardia at this time would like to reduce resume low-dose beta samy with parameters. At this time patient denies any nausea vomiting or diarrhea. Patient denies chest pain or shortness of breath. Patient denies any urinary burning or frequency I performed an examination of the patient and discussed their management with the Nurse Practitioner. I have reviewed the Nurse Practitioner's notes and agree with the documented findings and plan of care Patient Condition at Discharge: Stable Plan - Discharge Summary Discharge Rx Participant: No New Discharge Prescriptions: New Dicyclomine [Bentyl] 20 mg PO TID 30 Days #180 cap Continue Sucralfate [Carafate] 1 gm PO QID Omeprazole [PriLOSEC] 20 mg PO BID Insulin Regular, Human [NovoLIN R] 10 unit SQ AC-TID buPROPion SR [Wellbutrin SR] 150 mg PO DAILY #30 tablet.er Magnesium Oxide [William] 500 mg PO DAILY Torsemide [Demadex] 20 mg PO DAILY 30 Days #30 tab Cholecalciferol [Vitamin D3 (25 Mcg = 1000 Iu)] 4,000 unit PO DAILY Ferrous Sulfate [Iron (65 MG Elemental)] 325 mg PO BID Insulin NPH [humuLIN N] 18 unit SQ BID vial Metoprolol Tartrate [Lopressor] 12.5 mg PO BID #0 tab clonazePAM [KlonoPIN] 0.5 mg PO DAILY PRN #3 tab PRN Reason: Anxiety Morphine Sulfate ER [Ms Contin] 15 mg PO Q12HR 3 Days #6 tablet Lactulose [Cephulac] 30 gm PO TID ml Discontinued Dicyclomine [Bentyl] 10 mg PO TID Spironolactone [Aldactone] 50 mg PO DAILY #60 tab Discharge Medication List Omeprazole [PriLOSEC] 20 mg PO BID 10/23/18 [History] Sucralfate [Carafate] 1 gm PO QID 10/23/18 [History] Insulin Regular, Human [NovoLIN R] 10 unit SQ AC-TID 10/24/18 [History] buPROPion SR [Wellbutrin SR] 150 mg PO DAILY #30 tablet.er 12/21/18 [Rx] Magnesium Oxide [William] 500 mg PO DAILY 12/30/18 [History] Torsemide [Demadex] 20 mg PO DAILY 30 Days #30 tab 01/09/19 [Rx] Cholecalciferol [Vitamin D3 (25 Mcg = 1000 Iu)] 4,000 unit PO DAILY 01/16/19 [History] Ferrous Sulfate [Iron (65 MG Elemental)] 325 mg PO BID 01/31/19 [History] Insulin NPH [humuLIN N] 18 unit SQ BID vial 02/06/19 [Rx] Metoprolol Tartrate [Lopressor] 12.5 mg PO BID #0 tab 03/06/19 [Rx] Morphine Sulfate ER [Ms Contin] 15 mg PO Q12HR 3 Days #6 tablet 03/06/19 [Rx] clonazePAM [KlonoPIN] 0.5 mg PO DAILY PRN #3 tab 03/06/19 [Rx] Lactulose [Cephulac] 30 gm PO TID ml 03/26/19 [Rx] Dicyclomine [Bentyl] 20 mg PO TID 30 Days #180 cap 03/31/19 [Rx] Follow up Appointment(s)/Referral(s): Cem Estrada MD [STAFF PHYSICIAN] - 1 Week [facility], [NON-STAFF] - Gilma Martinez MD [Primary Care Provider] - 1-2 days (office to call hospital with appointment time) Ananth Francois MD [STAFF PHYSICIAN] - 04/21/19 9:00 am (Wednesday) Ambulatory/Diagnostic Orders: Comprehensive Metabolic Panel [LAB.AMB] Time Frame: 3 Days, Location: None Selected Activity/Diet/Wound Care/Special Instructions: Diet low potassium consistent carb heart healthy Activity as tolerated Discharge Disposition: HOME SELF-CARE
[2019-03-31 12:26] VITALS: BP 128/69; PULSE 54; RESP 17; TEMP 98.6
== END 2019-03-31 13:26 | disposition home or self-care (01) ==
LOC: EC 20:33 → 3SCARD 03-28 01:55
PROVIDERS: ADMIT Internal Medicine; ATTEND Internal Medicine
DX: C78.7 Secondary malignant neoplasm of liver and intrahepatic bile duct (principal); K74.60 Unspecified cirrhosis of liver; R77.9 Abnormality of plasma protein, unspecified; N17.9 Acute kidney failure, unspecified; E11.22 Type 2 diabetes mellitus with diabetic chronic kidney disease; Z93.3 Colostomy status; G89.29 Other chronic pain; F41.9 Anxiety disorder, unspecified; F32.9 Major depressive disorder, single episode, unspecified; E78.5 Hyperlipidemia, unspecified; E87.5 Hyperkalemia; K76.6 Portal hypertension; K57.30 Diverticulosis of large intestine without perforation or abscess without bleeding; N18.3 Chronic kidney disease, stage 3 (moderate); I12.9 Hypertensive chronic kidney disease with stage 1 through stage 4 chronic kidney disease, or unspecified chronic kidney disease; D61.818 Other pancytopenia; K21.9 Gastro-esophageal reflux disease without esophagitis; Z86.14 Personal history of Methicillin resistant Staphylococcus aureus infection; Z90.49 Acquired absence of other specified parts of digestive tract; I25.2 Old myocardial infarction; Z79.899 Other long term (current) drug therapy; Z79.4 Long term (current) use of insulin; Z90.710 Acquired absence of both cervix and uterus; Z87.891 Personal history of nicotine dependence; Z87.440 Personal history of urinary (tract) infections; Z87.11 Personal history of peptic ulcer disease; Z85.05 Personal history of malignant neoplasm of liver; Z82.49 Family history of ischemic heart disease and other diseases of the circulatory system
CPT/HCPCS: 96376; 96361 ×3; 96375; 96374; 99285; 36415; 93005; 80053 ×5; 82140 ×3; 82150 ×2; 83605; 83690 ×2; 83735; 84132; 84484; 85025 ×5; 81003; 87040; 82105; 74176; G0378 ×4; J2270 ×2; S0106 ×4; J2405

== ENCOUNTER 2019-04-03 15:46 | Emergency (ER) | payer MEDICARE ==
[2019-04-03 15:53] VITALS: BP 123/62; PULSE 63; RESP 16; TEMP 98.2
[2019-04-03] MEDS ORDERED: CYCLOBENZAPRINE 10 MG TAB PO STA (16:08)
--- NOTE | 2019-04-03 16:10 | ED ---
General Adult HPI - General Chief complaint: Neck Pain/Injury Stated complaint: neck pain Time Seen by Provider: 04/03/19 15:50 Source: patient, EMS Mode of arrival: EMS Limitations: physical limitation - History of Present Illness Initial comments: Dictation was produced using [employer] dictation software. please excuse any grammatical, word or spelling errors. Chief Complaint: 73-year-old female with multiple comorbidities presents with positional neck pain and concerns of potassium. History of Present Illness: We [id number] female she will today with positional neck pain. She states that she experiences some paraspinal cervical pain only when lying flat. Patient still able to move her neck looking left and right. Denies any fever, chills or night sweats. Patient is also here for secondary complaint of concerns potassium. States that she is confused because she was told she had high potassium but her discharge paperwork showed low potassium. Patient has any traumatic injuries. No falls. Patient states she had a similar symptom like this in the past however not as severe. The ROS documented in this emergency department record has been reviewed and confirmed by me. Those systems with pertinent positive or negative responses have been documented in the HPI. All other systems are other negative and/or noncontributory. PHYSICAL EXAM: General Impression: Alert and oriented x3, not in acute distress HEENT: Normocephalic atraumatic, extra-ocular movements intact, pupils equal and reactive to light bilaterally, mucous membranes moist, able to turn left and right with full range of motion. Able to touch chin to chest and extend the neck without complications. Cardiovascular: Heart regular rate and rhythm, S1&S2 audible, no murmurs, rubs or gallops Chest: Lungs clear to auscultation bilaterally, no rhonchi, no wheeze, no rales Abdomen: Bowel sounds present, abdomen soft, non-tender, non-distended, no organomegaly Musculoskeletal: Pulses present and equal in all extremities, no peripheral edema Motor: no focal deficits noted Neurological: CN II-XII grossly intact, no focal motor or sensory deficits noted Skin: Intact with no visualized rashes Psych: Normal affect and mood ED course: 73-year-old feel presents with musculoskeletal neck pain. Vital signs upon arrival are within acceptable limits. Patient is also concerned about her potassium level. Patient's neck pain is musculoskeletal in nature. Patient had a CT C-spine several years ago that showed degenerative changes.She is concerned about her potassium level. Her potassium level III.2. Patient given by mouth potassium. She is discharged told to follow-up with her primary care physician for potassium recheck. Patient tolerate by mouth at bedside. Patient is controlled. She'll prescription for muscle relaxants. - Related Data Home Medications Medication Instructions Recorded Confirmed Omeprazole [PriLOSEC] 20 mg PO BID 10/23/18 04/03/19 Sucralfate [Carafate] 1 gm PO QID 10/23/18 04/03/19 Insulin Regular, Human [NovoLIN R] 10 unit SQ AC-TID 10/24/18 04/03/19 Magnesium Oxide [William] 500 mg PO DAILY 12/30/18 04/03/19 Cholecalciferol [Vitamin D3 (25 4,000 unit PO DAILY 01/16/19 04/03/19 Mcg = 1000 Iu)] Ferrous Sulfate [Iron (65 MG 325 mg PO BID 01/31/19 04/03/19 Elemental)] Previous Rx's Medication Instructions Recorded buPROPion SR [Wellbutrin SR] 150 mg PO DAILY #30 tablet.er 12/21/18 Torsemide [Demadex] 20 mg PO DAILY 30 Days #30 tab 01/09/19 Insulin NPH [humuLIN N] 18 unit SQ BID vial 02/06/19 Morphine Sulfate ER [Ms Contin] 15 mg PO Q12HR 3 Days #6 tablet 03/06/19 clonazePAM [KlonoPIN] 0.5 mg PO DAILY PRN #3 tab 03/06/19 Lactulose [Cephulac] 30 gm PO TID ml 03/26/19 Dicyclomine [Bentyl] 20 mg PO TID 30 Days #180 cap 03/31/19 Metoprolol Tartrate [Lopressor] 12.5 mg PO BID #0 tab 03/31/19 Baclofen [Lioresal] 5 mg PO TID PRN #10 tablet 04/03/19 Potassium Chloride [K-Tab ER] 20 meq PO DAILY 3 Days #3 tablet.er 04/03/19 Allergies Allergy/AdvReac Type Severity Reaction Status Date / Time amlodipine Allergy Rash/Hives Verified 04/03/19 16:33 oxycodone Allergy Rash/Hives Verified 04/03/19 16:33 Penicillins Allergy Rash/Hives Verified 04/03/19 16:33 hydromorphone [From Dilaudid] AdvReac Mild tactile Verified 04/03/19 16:33 disturbance GREG Inhibitors AdvReac Cough Verified 04/03/19 16:33 sodium dodecyclbenzene Allergy Rash/Hives Uncoded 03/27/19 21:04 sulfonate Review of Systems ROS Statement: Those systems with pertinent positive or pertinent negative responses have been documented in the HPI. ROS Other: All systems not noted in ROS Statement are negative. Past Medical History Past Medical History: Cancer, Diabetes Mellitus, GERD/Reflux, Hypertension, Liver Disease, Myocardial Infarction ([place]), Renal Disease Additional Past Medical History / Comment(s): Hepatocellular liver cancer with chemo immobilizations-last time being 2017, ascities with paracentesis's, nonalcoholic liver cirrhosis, chronic pancytopenia, chronic elevated ammonia levels, hepatic encephalopathy, chronic elevated LFTs, chronic abdominal pain, stomach ulcer, diverticular disease with ileostomy, IDDM type II, iron anemia, CKD stage III, nonsustained vtach, UTI Last Myocardial Infarction Date:: unk History of Any Multi-Drug Resistant Organisms: MRSA Date of last positivie culture/infection: 12/30/18 MDRO Source:: MRSA URINE Past Surgical History: Appendectomy, Bowel Resection, Section, Cholecystectomy, Hysterectomy, Tonsillectomy Additional Past Surgical History / Comment(s): Chemo immobilizations, liver biopsies, paracentesis, bowel resection d/t diverticulitis/ileostomy, R rotator cuff repair, carpal tunnel release-laterality unknown. Past Anesthesia/Blood Transfusion Reactions: No Reported Reaction Past Psychological History: Anxiety, Depression Smoking Status: Former smoker Past Alcohol Use History: None Reported Past Drug Use History: None Reported - Past Family History Mother History Unknown: Yes Family Medical History: Congestive Heart Failure (CHF) Additional Family Medical History / Comment(s): Mother is 94 yrs old. Father Family Medical History: Chest Pain / Angina Additional Family Medical History / Comment(s): Father is . General Exam Limitations: physical limitation Course Vital Signs 04/03/19 15:51 Temperature 98.2 F Pulse Rate 63 Respiratory 16 Rate Blood Pressure 123/62 O2 Sat by Pulse 100 Oximetry Medical Decision Making - Lab Data Result diagrams: 04/03/19 16:20 Lab Results 04/03/19 Range/Units 16:20 Sodium 139 (137-145) mmol/L Potassium 3.2 L (3.5-5.1) mmol/L Chloride 104 (98-107) mmol/L Carbon Dioxide 24 (22-30) mmol/L Anion Gap 11 mmol/L BUN 27 H (7-17) mg/dL Creatinine 1.54 H (0.52-1.04) mg/dL Est GFR (CKD-EPI)AfAm 39 (>60 ml/min/1.73 sqM) Est GFR (CKD-EPI)NonAf 34 (>60 ml/min/1.73 sqM) Glucose 135 H (74-99) mg/dL Calcium 9.2 (8.4-10.2) mg/dL Disposition Clinical Impression: Neck muscle spasm Disposition: HOME SELF-CARE Condition: Good Instructions (If sedation given, give patient instructions): Cervical Strain (ED) Prescriptions: Potassium Chloride [K-Tab ER] 20 meq PO DAILY 3 Days #3 tablet.er Baclofen [Lioresal] 5 mg PO TID PRN #10 tablet PRN Reason: neck pain Is patient prescribed a controlled substance at d/c from ED?: No Referrals: Gilma Martinez MD [Primary Care Provider] - 1-2 days Time of Disposition: 17:18
[2019-04-03 16:41] LABS: Calcium 9.2 mg/dL (8.4-10.2); Potassium 3.2 mmol/L (3.5-5.1)
[2019-04-03] MEDS ORDERED: POTASSIUM BICARBONATE/CIT AC 20 MEQ TABLET.EFF PO ONE (17:15)
== END 2019-04-03 17:45 | disposition home or self-care (01) ==
LOC: EC 15:46
DX: M62.838 Other muscle spasm (principal); E11.22 Type 2 diabetes mellitus with diabetic chronic kidney disease; I12.9 Hypertensive chronic kidney disease with stage 1 through stage 4 chronic kidney disease, or unspecified chronic kidney disease; N18.3 Chronic kidney disease, stage 3 (moderate); K21.9 Gastro-esophageal reflux disease without esophagitis; I25.2 Old myocardial infarction; Z79.4 Long term (current) use of insulin; Z79.899 Other long term (current) drug therapy; Z88.0 Allergy status to penicillin; Z88.5 Allergy status to narcotic agent; Z88.8 Allergy status to other drugs, medicaments and biological substances; Z87.891 Personal history of nicotine dependence
CPT/HCPCS: 36415; 80048; 99283

== ENCOUNTER 2019-04-07 16:27 | Inpatient (IN) | payer MEDICARE ==
[2019-04-07] MEDS ORDERED: ASPIRIN 81 MG PO STA (16:47)
--- NOTE | 2019-04-07 16:50 | ED ---
General Adult HPI - General Chief complaint: Recheck/Abnormal Lab/Rx Stated complaint: TROP AT .230, SENT BY DR MOMIN Time Seen by Provider: 04/07/19 16:38 Source: patient Mode of arrival: ambulatory Limitations: no limitations - History of Present Illness Initial comments: Dictation was produced using [employer] dictation software. please excuse any grammatical, word or spelling errors. Chief Complaint: 73-year-old female with multiple coronary disease presents with abnormal outpatient lab. History of Present Illness: Patient 73-year-old female she was sent in by primary care physician. She states that she went for a follow-up appointment. She had labs drawn this morning. Patient was suctioned elevation of troponin to a level 2.3. Patient has baseline elevated troponin likely secondary to troponin leak. Patient has no complaints at this time. Denies any chest pain shortness of breath. The ROS documented in this emergency department record has been reviewed and confirmed by me. Those systems with pertinent positive or negative responses have been documented in the HPI. All other systems are other negative and/or noncontributory. PHYSICAL EXAM: General Impression: Alert and oriented x3, not in acute distress HEENT: Normocephalic atraumatic, extra-ocular movements intact, pupils equal and reactive to light bilaterally, mucous membranes moist. Cardiovascular: Heart regular rate and rhythm, S1&S2 audible, no murmurs, rubs or gallops Chest: Lungs clear to auscultation bilaterally, no rhonchi, no wheeze, no rales Abdomen: Bowel sounds present, abdomen soft, non-tender, non-distended, no organomegaly Musculoskeletal: Pulses present and equal in all extremities, no peripheral edema Motor: no focal deficits noted Neurological: CN II-XII grossly intact, no focal motor or sensory deficits noted Skin: Intact with no visualized rashes Psych: Normal affect and mood ED course: 73-year-old female presents with elevated troponin seen on outpatient lab performed by primary care physician. All signs upon arrival are within acceptable limits. Physical examination is benign. EKG is nonacute. Laboratory evaluation obtained. Patient has macrocytic anemia with platelet of 87. These levels appear to be around patient's baseline. Coag panel is unremarkable. Metabolic panel shows elevation of renal markers. Patient's troponin is 0.137. [place] is asymptomatic at this time. She denies any chest pain, shortness of breath or other ACS-type symptoms. Patient's elevated troponin is likely secondary to acute kidney injury. Patient be admitted with cardiology and nephrology consultation. Intravenous fluids and aspirin. At this point we will hold heparin at this time. Discussed patient case with Dr. Lea who is willing to accept admission. EKG interpretation: Ventricular rate 52, sinus bradycardia,. 172, care is 100, QTC 472. No NH prolongation, no QTC prolongation, no ST or T-wave changes noted. Overall, this EKG is unremarkable - Related Data Home Medications Medication Instructions Recorded Confirmed Omeprazole [PriLOSEC] 20 mg PO BID 10/23/18 04/07/19 Sucralfate [Carafate] 1 gm PO QID 10/23/18 04/07/19 Insulin Regular, Human [NovoLIN R] 10 unit SQ AC-TID 10/24/18 04/07/19 Magnesium Oxide [William] 500 mg PO DAILY 12/30/18 04/07/19 Cholecalciferol [Vitamin D3 (25 4,000 unit PO DAILY 01/16/19 04/07/19 Mcg = 1000 Iu)] Ferrous Sulfate [Iron (65 MG 325 mg PO BID 01/31/19 04/07/19 Elemental)] Previous Rx's Medication Instructions Recorded buPROPion SR [Wellbutrin SR] 150 mg PO DAILY #30 tablet.er 12/21/18 Torsemide [Demadex] 20 mg PO DAILY 30 Days #30 tab 01/09/19 Insulin NPH [humuLIN N] 18 unit SQ BID vial 02/06/19 Morphine Sulfate ER [Ms Contin] 15 mg PO Q12HR 3 Days #6 tablet 03/06/19 clonazePAM [KlonoPIN] 0.5 mg PO DAILY PRN #3 tab 03/06/19 Lactulose [Cephulac] 30 gm PO TID ml 03/26/19 Dicyclomine [Bentyl] 20 mg PO TID 30 Days #180 cap 03/31/19 Metoprolol Tartrate [Lopressor] 12.5 mg PO BID #0 tab 03/31/19 Baclofen [Lioresal] 5 mg PO TID PRN #10 tablet 04/03/19 Potassium Chloride [K-Tab ER] 20 meq PO DAILY 3 Days #3 tablet.er 04/03/19 Allergies Allergy/AdvReac Type Severity Reaction Status Date / Time amlodipine Allergy Rash/Hives Verified 04/07/19 17:08 oxycodone Allergy Rash/Hives Verified 04/07/19 17:08 Penicillins Allergy Rash/Hives Verified 04/07/19 17:08 hydromorphone [From Dilaudid] AdvReac Mild tactile Verified 04/07/19 17:08 disturbance GREG Inhibitors AdvReac Cough Verified 04/07/19 17:08 sodium dodecyclbenzene Allergy Rash/Hives Uncoded 04/07/19 16:32 sulfonate Review of Systems ROS Statement: Those systems with pertinent positive or pertinent negative responses have been documented in the HPI. ROS Other: All systems not noted in ROS Statement are negative. Past Medical History Past Medical History: Cancer, Diabetes Mellitus, GERD/Reflux, Hypertension, Liver Disease, Myocardial Infarction ([place]), Renal Disease Additional Past Medical History / Comment(s): Hepatocellular liver cancer with chemo immobilizations-last time being 2017, ascities with paracentesis's, nonalcoholic liver cirrhosis, chronic pancytopenia, chronic elevated ammonia levels, hepatic encephalopathy, chronic elevated LFTs, chronic abdominal pain, stomach ulcer, diverticular disease with ileostomy, IDDM type II, iron anemia, CKD stage III, nonsustained vtach, UTI Last Myocardial Infarction Date:: unk History of Any Multi-Drug Resistant Organisms: MRSA Date of last positivie culture/infection: 12/30/18 MDRO Source:: MRSA URINE Past Surgical History: Appendectomy, Bowel Resection, Section, Cholecystectomy, Hysterectomy, Tonsillectomy Additional Past Surgical History / Comment(s): Chemo immobilizations, liver biopsies, paracentesis, bowel resection d/t diverticulitis/ileostomy, R rotator cuff repair, carpal tunnel release-laterality unknown. Past Anesthesia/Blood Transfusion Reactions: No Reported Reaction Past Psychological History: Anxiety, Depression Smoking Status: Former smoker Past Alcohol Use History: None Reported Past Drug Use History: None Reported - Past Family History Mother History Unknown: Yes Family Medical History: Congestive Heart Failure (CHF) Additional Family Medical History / Comment(s): Mother is 94 yrs old. Father Family Medical History: Chest Pain / Angina Additional Family Medical History / Comment(s): Father is . General Exam Limitations: no limitations Course Vital Signs 04/07/19 16:29 Temperature 98.3 F Pulse Rate 58 L Respiratory 18 Rate Blood Pressure 101/62 O2 Sat by Pulse 100 Oximetry Medical Decision Making - Lab Data Result diagrams: 04/07/19 16:49 04/07/19 16:49 Lab Results 04/07/19 04/07/19 04/07/19 Range/Units 16:49 16:49 16:49 WBC 7.2 (3.8-10.6) k/uL RBC 4.31 (3.80-5.40) m/uL Hgb 15.2 D (11.4-16.0) gm/dL Hct 44.1 (34.0-46.0) % MCV 102.3 H D (80.0-100.0) fL MCH 35.1 H (25.0-35.0) pg MCHC 34.4 (31.0-37.0) g/dL RDW 14.7 (11.5-15.5) % Plt Count 87 L D (150-450) k/uL Neutrophils % 64 % Lymphocytes % 23 % Monocytes % 6 % Eosinophils % 4 % Basophils % 1 % Neutrophils # 4.6 (1.3-7.7) k/uL Lymphocytes # 1.7 (1.0-4.8) k/uL Monocytes # 0.5 (0-1.0) k/uL Eosinophils # 0.3 (0-0.7) k/uL Basophils # 0.0 (0-0.2) k/uL Macrocytosis Slight PT 13.7 H (9.0-12.0) sec INR 1.3 H (<1.2) APTT 24.1 (22.0-30.0) sec Sodium 136 L (137-145) mmol/L Potassium 4.8 (3.5-5.1) mmol/L Chloride 106 (98-107) mmol/L Carbon Dioxide 20 L (22-30) mmol/L Anion Gap 10 mmol/L BUN 33 H (7-17) mg/dL Creatinine 2.09 H (0.52-1.04) mg/dL Est GFR (CKD-EPI)AfAm 27 (>60 ml/min/1.73 sqM) Est GFR (CKD-EPI)NonAf 23 (>60 ml/min/1.73 sqM) Glucose 68 L (74-99) mg/dL Calcium 9.2 (8.4-10.2) mg/dL Magnesium 2.2 (1.6-2.3) mg/dL Total Bilirubin 3.2 H (0.2-1.3) mg/dL AST 118 H (14-36) U/L ALT 26 (9-52) U/L Alkaline Phosphatase 304 H (38-126) U/L Creatine Kinase 187 H (30-135) U/L Troponin I (0.000-0.034) ng/mL Total Protein 8.2 (6.3-8.2) g/dL Albumin 4.0 (3.5-5.0) g/dL 04/07/19 Range/Units 16:49 WBC (3.8-10.6) k/uL RBC (3.80-5.40) m/uL Hgb (11.4-16.0) gm/dL Hct (34.0-46.0) % MCV (80.0-100.0) fL MCH (25.0-35.0) pg MCHC (31.0-37.0) g/dL RDW (11.5-15.5) % Plt Count (150-450) k/uL Neutrophils % % Lymphocytes % % Monocytes % % Eosinophils % % Basophils % % Neutrophils # (1.3-7.7) k/uL Lymphocytes # (1.0-4.8) k/uL Monocytes # (0-1.0) k/uL Eosinophils # (0-0.7) k/uL Basophils # (0-0.2) k/uL Macrocytosis PT (9.0-12.0) sec INR (<1.2) APTT (22.0-30.0) sec Sodium (137-145) mmol/L Potassium (3.5-5.1) mmol/L Chloride (98-107) mmol/L Carbon Dioxide (22-30) mmol/L Anion Gap mmol/L BUN (7-17) mg/dL Creatinine (0.52-1.04) mg/dL Est GFR (CKD-EPI)AfAm (>60 ml/min/1.73 sqM) Est GFR (CKD-EPI)NonAf (>60 ml/min/1.73 sqM) Glucose (74-99) mg/dL Calcium (8.4-10.2) mg/dL Magnesium (1.6-2.3) mg/dL Total Bilirubin (0.2-1.3) mg/dL AST (14-36) U/L ALT (9-52) U/L Alkaline Phosphatase (38-126) U/L Creatine Kinase (30-135) U/L Troponin I 0.137 H* (0.000-0.034) ng/mL Total Protein (6.3-8.2) g/dL Albumin (3.5-5.0) g/dL Disposition Clinical Impression: MORENA (acute kidney injury), Elevated troponin, Encounter for medication refill Disposition: ADMITTED IP TO THIS HOSP Condition: Fair Referrals: Gilma Momin MD [Primary Care Provider] - 1-2 days Decision Time: 18:46
[2019-04-07 17:04] LABS: Basophils % (A) 1 %; Eosinophils # (A) 0.3 k/uL (0-0.7); Eosinophils % (A) 4 %; HCT 44.1 % (34.0-46.0); Lymphocytes # (A) 1.7 k/uL (1.0-4.8); Lymphocytes % (A) 23 %; MCH 35.1 pg (25.0-35.0); MCHC 34.4 g/dL (31.0-37.0); Macrocytosis Slight; Mean Platelet Volume 8.9; Monocytes # (A) 0.5 k/uL (0-1.0); Monocytes % (A) 6 %; Neutrophils # (A) 4.6 k/uL (1.3-7.7); Neutrophils % (A) 64 %; RBC 4.31 m/uL (3.80-5.40); RDW 14.7 % (11.5-15.5); WBC 7.2 k/uL (3.8-10.6)
[2019-04-07 17:08] LABS: Calcium 9.2 mg/dL (8.4-10.2); Magnesium 2.2 mg/dL (1.6-2.3); Potassium 4.8 mmol/L (3.5-5.1); Total Bilirubin 3.2 mg/dL (0.2-1.3); Total Protein 8.2 g/dL (6.3-8.2)
[2019-04-07 17:14] LABS: INR 1.3 (<1.2); Prothrombin Time 13.7 sec (9.0-12.0)
[2019-04-07 17:15] LABS: Partial Thromboplastin Time 24.1 sec (22.0-30.0)
--- NOTE | 2019-04-07 17:15 | XR ---
EXAMINATION TYPE: XR chest 2V DATE OF EXAM: 04/07/2019 COMPARISON: 02/20/2019 HISTORY: Lethargy. TECHNIQUE: Frontal and lateral views of the chest are obtained. FINDINGS: Heart and mediastinum are normal. Lungs are clear. Diaphragm is normal. There are chest le ads. Bony thorax is intact. IMPRESSION: Normal chest. No change.
[2019-04-07 17:19] LABS: HGB 15.2 gm/dL (11.4-16.0); MCV 102.3 fL (80.0-100.0)
[2019-04-07] MEDS ORDERED: SODIUM CHLORIDE 0.9% 500 ML IV STA (18:44)
[2019-04-07] MEDS ORDERED: NITROGLYCERIN SL TABS 0.4 MG TAB SUBLINGUAL PRN (18:46)
[2019-04-07] MEDS ORDERED: SODIUM CHLORIDE 0.9% 1,000 ML IV STA (18:48)
[2019-04-07 21:47] LABS: Glucose,Whole Blood 67 mg/dL (75-99)
[2019-04-07 22:16] LABS: Glucose,Whole Blood 75 mg/dL (75-99)
[2019-04-07 22:20] LABS: Platelet Count 87 k/uL (150-450)
[2019-04-07] MEDS: METOPROLOL TARTRATE 12.5 MG TAB PO SCH (22:54)
[2019-04-07 23:54] LABS: Glucose,Whole Blood 133 mg/dL (75-99)
[2019-04-08] MEDS: ONDANSETRON 4 MG/2 ML VIAL IVP PRN ×2 (00:03→09:16)
[2019-04-08 03:48] LABS: Glucose,Whole Blood 147 mg/dL (75-99)
[2019-04-08 05:53] LABS: Cholesterol 114 mg/dL (<200); HDL Cholesterol 56 mg/dL (40-60); LDL Cholesterol,Calculated 44 mg/dL (0-99); Triglycerides 70 mg/dL (<150)
[2019-04-08 07:04] LABS: Glucose,Whole Blood 147 mg/dL (75-99)
[2019-04-08] MEDS: TORSEMIDE 20 MG TAB PO SCH (09:15)
[2019-04-08] MEDS: METOPROLOL TARTRATE 12.5 MG TAB PO SCH ×2 (09:15→21:22)
[2019-04-08] MEDS: ASPIRIN 325 MG TAB PO SCH (09:15)
[2019-04-08] MEDS: INSULIN NPH 300 UNIT/3 ML VIAL SQ SCH ×2 (09:39→17:32)
[2019-04-08 11:34] LABS: Basophils % (A) 0 %; Eosinophils # (A) 0.2 k/uL (0-0.7); Eosinophils % (A) 3 %; HGB 12.8 gm/dL (11.4-16.0); Lymphocytes # (A) 1.1 k/uL (1.0-4.8); Lymphocytes % (A) 20 %; MCHC 32.8 g/dL (31.0-37.0); MCV 106.5 fL (80.0-100.0); Macrocytosis Moderate; Mean Platelet Volume 9.8; Monocytes # (A) 0.3 k/uL (0-1.0); Monocytes % (A) 6 %; Neutrophils # (A) 3.7 k/uL (1.3-7.7); Neutrophils % (A) 69 %; RBC 3.66 m/uL (3.80-5.40); RDW 15.4 % (11.5-15.5); WBC 5.3 k/uL (3.8-10.6)
[2019-04-08 11:35] LABS: Platelet Count 58 k/uL (150-450)
[2019-04-08 11:48] LABS: Glucose,Whole Blood 333 mg/dL (75-99)
[2019-04-08 11:48] LABS: Calcium 8.7 mg/dL (8.4-10.2); Potassium 4.4 mmol/L (3.5-5.1); Total Bilirubin 2.9 mg/dL (0.2-1.3); Total Protein 6.6 g/dL (6.3-8.2)
[2019-04-08] MEDS: INSULIN REGULAR 100 UNIT/ML VIAL SQ SCH ×3 (11:55→17:32)
--- NOTE | 2019-04-08 12:33 | P.CRDCN ---
History of Present Illness Consult date: 04/08/19 Reason for Consult (text): Elevated troponin History of present illness: The patient is a 73-year-old female with past medical history of CAD, and sustained ventricular tachycardia, hypertension, liver cancer, and chronic kidney disease, who is admitted to the hospital for elevated troponin level of 2.3. The patient recently had labs for by her primary care physician, which included cardiac enzymes. The patient states she was not having symptoms of chest discomfort he was recently discharged from the hospital for cirrhosis. During this admission she didn't have mildly elevated troponins, however was negative for acute coronary event. Previous echo in February showed ejection fraction of 45% with posterior hypokinesis and moderate aortic stenosis. On exam the patient is resting comfortably in bed. She is lethargic, but responsive. She denies any chest discomfort, dyspnea, palpitations, or vertigo. She does have chronic abdominal pain. EKG shows sinus mechanism with incomplete right bundle branch block PAST MEDICAL HISTORY: Nonalcoholic liver cirrhosis, hepatocellular carcinoma, CKD stage III, diabetes mellitus type 2, right bundle branch block, myocardial infarction REVIEW OF SYSTEMS: No fever or chills. No cough or expectoration. No diaphoresis. Patient denies headache, dizziness, blurred vision, double vision. No nausea, vomiting. No hematochezia. No hematemesis. Denies any black stools or blood in his stools. Denies dysuria or hematuria. No muscle weakness or numbness. PHYSICAL EXAMINATION: This is a 73-year-old female in no apparent distress at the time of my examination. HEENT: Head is atraumatic, normocephalic. Pupils are equal, round. Sclerae anicteric. Conjunctivae are clear. Mucous membranes of the mouth are moist. Neck is supple. There is no jugular venous distention. No carotid bruit is heard. CHEST EXAMINATION: Fine crackles noted at the bases No chest wall tenderness is noted on palpation or with deep breathing. HEART EXAMINATION: Heart regular rate and rhythm. S1, S2 heard. Systolic ejection murmur. No gallops or rub. ABDOMEN: Soft. Tender to palpation. Bowel sounds are heard. No organomegaly noted. EXTREMITIES: 2+ peripheral pulses with no evidence of peripheral edema and no calf tenderness noted. NEUROLOGIC EXAMINATION: Patient is awake, alert and oriented x3. LABORATORY DATA: WBC 5.3, hemoglobin 12.8, potassium 4.4, sodium 137, BUN 28, creatinine 1.3, AST 80, ALT 37, ALP 258, ammonia 32, troponin 0.134 and 0.104, cholesterol 114, triglycerides 70, LDL 44. FINAL ASSESSMENT AND PLAN: Elevated troponins, chronic mild troponin leak Valvular heart disease, moderate aortic stenosis and mild mitral regurgitation Abdominal pain, history of nonalcoholic liver cirrhosis History of hepatocellular carcinoma Chronic kidney disease PLAN: From a cardiac standpoint, the patient is stable. Abnormality in troponin is chronic for the patient and his not consistent with acute coronary syndrome. We will continue to follow the patient on as-needed basis. Please don't hesitate to call with any questions. Thank you kindly for this consultation. Past Medical History Past Medical History: Cancer, Diabetes Mellitus, GERD/Reflux, Hypertension, Liver Disease, Myocardial Infarction ([place]), Renal Disease Additional Past Medical History / Comment(s): Hepatocellular liver cancer with chemo immobilization-last time being 2017, ascities with paracentesis's last dec, nonalcoholic liver cirrhosis, chronic pancytopenia, chronic elevated ammonia levels, hepatic encephalopathy, chronic elevated LFTs, chronic abdominal pain, stomach ulcer, diverticular disease with ileostomy, IDDM type II, iron anemia, CKD stage III, nonsustained vtach, UTI, high ammonia levels Last Myocardial Infarction Date:: unk History of Any Multi-Drug Resistant Organisms: MRSA Date of last positivie culture/infection: 12/30/18 10/23/18 MDRO Source:: MRSA URINE, MRSA STOOL Past Surgical History: Appendectomy, Bowel Resection, Section, Cholecystectomy, Hysterectomy, Tonsillectomy Additional Past Surgical History / Comment(s): Chemo immobilizations, liver biopsies, paracentesis, bowel resection d/t diverticulitis/ileostomy, R rotator cuff repair, carpal tunnel release-laterality unknown. Past Anesthesia/Blood Transfusion Reactions: No Reported Reaction Past Psychological History: Anxiety, Depression Additional Psychological History / Comment(s): Pt resides with her son and daughter in law and grandchildren. She ambulates with a walker. She is receivi [facility]. 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 Reformed smoker. . Retired. No experience. No animal exposures Smoking Status: Former smoker Past Alcohol Use History: None Reported Additional Past Alcohol Use History / Comment(s): started smoking 1962 and quit 1965 Past Drug Use History: None Reported - Past Family History Mother History Unknown: Yes Family Medical History: Congestive Heart Failure (CHF) Additional Family Medical History / Comment(s): Mother is 94 yrs old. Father Family Medical History: Chest Pain / Angina Additional Family Medical History / Comment(s): Father is . Medications and Allergies Home Medications Medication Instructions Recorded Confirmed Type Omeprazole [PriLOSEC] 20 mg PO BID 10/23/18 04/07/19 History Sucralfate [Carafate] 1 gm PO QID 10/23/18 04/07/19 History Insulin Regular, Human [NovoLIN R] 10 unit SQ AC-TID 10/24/18 04/07/19 History buPROPion SR [Wellbutrin SR] 150 mg PO DAILY #30 tablet.er 12/21/18 04/07/19 Rx Magnesium Oxide [William] 500 mg PO DAILY 12/30/18 04/07/19 History Torsemide [Demadex] 20 mg PO DAILY 30 Days #30 tab 01/09/19 04/07/19 Rx Cholecalciferol [Vitamin D3 (25 4,000 unit PO DAILY 01/16/19 04/07/19 History Mcg = 1000 Iu)] Ferrous Sulfate [Iron (65 MG 325 mg PO BID 01/31/19 04/07/19 History Elemental)] Insulin NPH [humuLIN N] 18 unit SQ BID vial 02/06/19 04/07/19 Rx Morphine Sulfate ER [Ms Contin] 15 mg PO Q12HR 3 Days #6 tablet 03/06/1904/07 Rx clonazePAM [KlonoPIN] 0.5 mg PO DAILY PRN #3 tab 03/06/19 04/07/19 Rx Dicyclomine [Bentyl] 20 mg PO TID 30 Days #180 cap 03/31/19 04/07/19 Rx Metoprolol Tartrate [Lopressor] 12.5 mg PO BID #0 tab 03/31/19 04/07/19 Rx Baclofen [Lioresal] 5 mg PO TID PRN #10 tablet 04/03/19 04/07/19 Rx Potassium Chloride [K-Tab ER] 20 meq PO DAILY 3 Days #3 tablet.er 04/03/19 04/07/19 Rx Lactulose [Cephulac] 45 gm PO TID 04/07/19 04/07/19 History Allergies Allergy/AdvReac Type Severity Reaction Status Date / Time amlodipine Allergy Rash/Hives Verified 04/07/19 17:08 oxycodone Allergy Rash/Hives Verified 04/07/19 17:08 Penicillins Allergy Rash/Hives Verified 04/07/19 17:08 hydromorphone [From Dilaudid] AdvReac Mild tactile Verified 04/07/19 17:08 disturbance GREG Inhibitors AdvReac Cough Verified 04/07/19 17:08 sodium dodecyclbenzene Allergy Rash/Hives Uncoded 04/07/19 16:32 sulfonate Physical Exam Vitals: Vital Signs Temp Pulse Pulse Resp BP BP Pulse Ox 04/08/19 05:06 97.6 F 69 18 110/71 98 04/07/19 23:00 60 18 121/64 100 04/07/19 22:53 55 L 04/07/19 22:22 97.4 F L 60 18 124/62 100 04/07/19 21:12 98.1 F 56 L 16 103/56 100 04/07/19 19:23 98.4 F 53 L 16 107/58 100 04/07/19 16:29 98.3 F 58 L 18 101/62 100 Intake and Output 04/07/19 04/08/19 04/08/19 22:59 06:59 14:59 Intake Total 850 Output Total 1000 Balance -150 Intake: Intake, IV Titration 650 Amount Sodium Chloride 0.9% 1, 650 000 ml @ 75 mls/hr IV . [id number] STA Rx#:[id number] Oral 200 Output: Emesis 1000 Other: Voiding Method Toilet Toilet # Voids 1 1 # Bowel Movements 1 Weight 83.915 kg Results 04/08/19 10:02 04/08/19 10:02 Cardiac Enzymes 04/07/19 04/07/19 04/07/19 Range/Units 16:49 16:49 22:33 AST 118 H (14-36) U/L Troponin I 0.137 H* 0.134 H* (0.000-0.034) ng/mL 04/08/19 04/08/19 Range/Units 05:33 10:02 AST 80 H (14-36) U/L Troponin I 0.104 H* (0.000-0.034) ng/mL Coagulation 04/07/19 Range/Units 16:49 PT 13.7 H (9.0-12.0) sec APTT 24.1 (22.0-30.0) sec Lipids 04/08/19 Range/Units 05:33 Triglycerides 70 (<150) mg/dL Cholesterol 114 (<200) mg/dL HDL Cholesterol 56 (40-60) mg/dL CBC 04/07/19 04/08/19 Range/Units 16:49 10:02 WBC 7.2 5.3 (3.8-10.6) k/uL RBC 4.31 3.66 L (3.80-5.40) m/uL Hgb 15.2 D 12.8 (11.4-16.0) gm/dL Hct 44.1 39.0 (34.0-46.0) % Plt Count 87 L D 58 L (150-450) k/uL Comprehensive Metabolic Panel 04/07/19 04/08/19 Range/Units 16:49 10:02 Sodium 136 L 137 (137-145) mmol/L Potassium 4.8 4.4 (3.5-5.1) mmol/L Chloride 106 110 H (98-107) mmol/L Carbon Dioxide 20 L 18 L (22-30) mmol/L BUN 33 H 28 H (7-17) mg/dL Creatinine 2.09 H 1.58 H (0.52-1.04) mg/dL Glucose 68 L 176 H (74-99) mg/dL Calcium 9.2 8.7 (8.4-10.2) mg/dL AST 118 H 80 H (14-36) U/L ALT 26 37 (9-52) U/L Alkaline Phosphatase 304 H 258 H (38-126) U/L Total Protein 8.2 6.6 (6.3-8.2) g/dL Albumin 4.0 3.0 L (3.5-5.0) g/dL Current Medications Generic Name Dose Route Start Last Admin Trade Name Freq PRN Reason Stop Dose Admin Aspirin 325 mg 04/08/19 09:00 04/08/19 09:15 Aspirin PO 325 mg DAILY JENNY Administration Insulin Human NPH 18 unit 04/08/19 07:30 04/08/19 09:39 Humulin N SQ 18 unit BID-W/MEALS JENNY Administration Insulin Human Regular 10 unit 04/08/19 07:30 04/08/19 11:55 Humulin R SQ Not Given AC-TID JENNY Metoprolol Tartrate 12.5 mg 04/07/19 21:00 04/08/19 09:15 Lopressor PO 12.5 mg BID JENNY Administration Nitroglycerin 0.4 mg 04/07/19 18:46 Nitrostat SUBLINGUAL Q5M PRN Chest Pain Ondansetron HCl 4 mg 04/07/19 23:49 04/08/19 09:16 Zofran IVP 4 mg Q6HR PRN Administration Nausea And Vomiting Torsemide 20 mg 04/08/19 09:00 04/08/19 09:15 Demadex PO 20 mg DAILY JENNY Administration Intake and Output 04/07/19 04/08/19 04/08/19 22:59 06:59 14:59 Intake Total 850 Output Total 1000 Balance -150 Intake: Intake, IV Titration 650 Amount Sodium Chloride 0.9% 1, 650 000 ml @ 75 mls/hr IV . [id number] STA Rx#:[id number] Oral 200 Output: Emesis 1000 Other: Voiding Method Toilet Toilet # Voids 1 1 # Bowel Movements 1 Weight 83.915 kg 04/08/19 10:02 04/08/19 10:02
--- NOTE | 2019-04-08 13:00 | P.NPCON ---
History of Present Illness - Reason for Consult Consult date: 04/08/19 acute renal failure - Chief Complaint Acute kidney injury, confusion, chronic kidney disease - History of Present Illness This is a 73-year-old female seen in consultation because of acute kidney injury and chronic kidney disease. She was admitted because a slightly high troponin at her primary physician's office. She is somewhat confused and is unable to give any history. She denies any nausea vomiting diarrhea appetite was fair. Denies any history of dysuria frequency immaturity or kidney stones. No fever chills no cough no shortness of breath She is known with diabetes, hypertension, history of hepatocellular carcinoma with chemo, previous history of paracentesis liver cirrhosis and chronically elevated ammonia levels. Also known with diverticular disease She is not on any nonsteroidals. She is on omeprazole. Past Medical History Past Medical History: Cancer, Diabetes Mellitus, GERD/Reflux, Hypertension, Liver Disease, Myocardial Infarction ([place]), Renal Disease Additional Past Medical History / Comment(s): Hepatocellular liver cancer with chemo immobilization-last time being 2017, ascities with paracentesis's last dec, nonalcoholic liver cirrhosis, chronic pancytopenia, chronic elevated ammonia levels, hepatic encephalopathy, chronic elevated LFTs, chronic abdominal pain, stomach ulcer, diverticular disease with ileostomy, IDDM type II, iron anemia, CKD stage III, nonsustained vtach, UTI, high ammonia levels Last Myocardial Infarction Date:: unk History of Any Multi-Drug Resistant Organisms: MRSA Date of last positivie culture/infection: 12/30/18 10/23/18 MDRO Source:: MRSA URINE, MRSA STOOL Past Surgical History: Appendectomy, Bowel Resection, Section, Cholecystectomy, Hysterectomy, Tonsillectomy Additional Past Surgical History / Comment(s): Chemo immobilizations, liver biopsies, paracentesis, bowel resection d/t diverticulitis/ileostomy, R rotator cuff repair, carpal tunnel release-laterality unknown. Past Anesthesia/Blood Transfusion Reactions: No Reported Reaction Past Psychological History: Anxiety, Depression Additional Psychological History / Comment(s): Pt resides with her son and daughter in law and grandchildren. She ambulates with a walker. She is receiving [facility]. 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 Reformed smoker. . Retired. No experience. No animal exposures Smoking Status: Former smoker Past Alcohol Use History: None Reported Additional Past Alcohol Use History / Comment(s): started smoking 1962 and quit 1965 Past Drug Use History: None Reported - Past Family History Mother History Unknown: Yes Family Medical History: Congestive Heart Failure (CHF) Additional Family Medical History / Comment(s): Mother is 94 yrs old. Father Family Medical History: Chest Pain / Angina Additional Family Medical History / Comment(s): Father is . Medications and Allergies Home Medications Medication Instructions Recorded Confirmed Type Omeprazole [PriLOSEC] 20 mg PO BID 10/23/18 04/07/19 History Sucralfate [Carafate] 1 gm PO QID 10/23/18 04/07/19 History Insulin Regular, Human [NovoLIN R] 10 unit SQ AC-TID 10/24/18 04/07/19 History buPROPion SR [Wellbutrin SR] 150 mg PO DAILY #30 tablet.er 12/21/18 04/07/19 Rx Magnesium Oxide [William] 500 mg PO DAILY 12/30/18 04/07/19 History Torsemide [Demadex] 20 mg PO DAILY 30 Days #30 tab 01/09/19 04/07/19 Rx Cholecalciferol [Vitamin D3 (25 4,000 unit PO DAILY 01/16/19 04/07/19 History Mcg = 1000 Iu)] Ferrous Sulfate [Iron (65 MG 325 mg PO BID 01/31/19 04/07/19 History Elemental)] Insulin NPH [humuLIN N] 18 unit SQ BID vial 02/06/19 04/07/19 Rx Morphine Sulfate ER [Ms Contin] 15 mg PO Q12HR 3 Days #6 tablet 03/06/19 04/07/19 Rx clonazePAM [KlonoPIN] 0.5 mg PO DAILY PRN #3 tab 03/06/19 04/07/19 Rx Dicyclomine [Bentyl] 20 mg PO TID 30 Days #180 cap 03/31/19 04/07/19 Rx Metoprolol Tartrate [Lopressor] 12.5 mg PO BID #0 tab 03/31/19 04/07/19 Rx Baclofen [Lioresal] 5 mg PO TID PRN #10 tablet 04/03/19 04/07/19 Rx Potassium Chloride [K-Tab ER] 20 meq PO DAILY 3 Days #3 tablet.er 04/03/19 04/07/19 Rx Lactulose [Cephulac] 45 gm PO TID 04/07/19 04/07/19 History Allergies Allergy/AdvReac Type Severity Reaction Status Date / Time amlodipine Allergy Rash/Hives Verified 04/07/19 17:08 oxycodone Allergy Rash/Hives Verified 04/07/19 17:08 Penicillins Allergy Rash/Hives Verified 04/07/19 17:08 hydromorphone [From Dilaudid] AdvReac Mild tactile Verified 04/07/19 17:08 disturbance GREG Inhibitors AdvReac Cough Verified 04/07/19 17:08 sodium dodecyclbenzene Allergy Rash/Hives Uncoded 04/07/19 16:32 sulfonate Physical Exam Vitals: Vital Signs Temp Pulse Pulse Resp BP BP Pulse Ox 04/08/19 05:06 97.6 F 69 18 110/71 98 04/07/19 23:00 60 18 121/64 100 04/07/19 22:53 55 L 04/07/19 22:22 97.4 F L 60 18 124/62 100 04/07/19 21:12 98.1 F 56 L 16 103/56 100 04/07/19 19:23 98.4 F 53 L 16 107/58 100 04/07/19 16:29 98.3 F 58 L 18 101/62 100 Intake and Output 04/07/19 04/08/19 04/08/19 22:59 06:59 14:59 Intake Total 850 Output Total 1000 Balance -150 Intake: Intake, IV Titration 650 Amount Sodium Chloride 0.9% 1, 650 000 ml @ 75 mls/hr IV . [id number] STA Rx#:[id number] Oral 200 Output: Emesis 1000 Other: Voiding Method Toilet Toilet # Voids 1 1 # Bowel Movements 1 Weight 83.915 kg On examination she is awake alert comfortable but disoriented HEENT exam no JVP no hepatojugular reflux on supine position urine no nodes neck is supple no facial asymmetry Lungs are clear to auscultation good air entry bilaterally Heart sounds are unremarkable for any murmur rub gallop Abdomen soft nontender no organomegaly status masses noted Extremity exam was no edema Neurologically awake alert but disoriented 3. No asterixis. Moves all her extremities. Has generalized weakness Results - Lab Results Most recent lab results Calcium 8.7 mg/dL (8.4-10.2) 04/08/19 10:02 Magnesium 2.2 mg/dL (1.6-2.3) 04/07/19 16:49 04/08/19 10:02 04/08/19 10:02 Assessment and Plan Assessment: Impression 1. Acute kidney injury secondary to 1 depletion most likely although is not clear why she was volume depleted. This is based on her history of dizziness and her improved creatinine with IV fluids. Her creatinine on admission yesterday was 2.1 and 1.58 this morning. In the past his creatinine has fluctuated and was a 1.81 a few days ago on 03/27/2019. On 03/06/2019 inches creatinine of 0.92 which is probably her baseline. 2. Mild degree of non-gap acidosis with bicarb 18 and gap 9 etiology is acute kidney injury. 3. Diabetes mellitus blood sugars are controlled mostly. 4. Confusion and disorientation. Cause not very clear 5. History of advanced alert carcinoma and cirrhosis, nonalcoholic. Ammonia level is 32. 6. Admitted because of high troponin level in her primary physician's office, here it was 0.137 and the most recent one is 0.104. 7. 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 Would hold off the diuretics for right now as she does not seem to be in any congestive heart failure, number pressures are marginal the last one recorded being 100/63. 2. Monitor labs and urine output. 3. Check orthostatic changes. If positive will reintroduce the IV fluids for 1 more day.
--- NOTE | 2019-04-08 14:33 | P.HPIM ---
History of Present Illness H&P Date: 04/08/19 Charlene Keenan, is a 73-year-old female with known history of liver cirrhosis and hepatocellular carcinoma who presented to [facility] emergency room due to abnormal blood test that her primary care physician's office which revealed elevated troponin level. Patient was evaluated in the emergency room and was admitted to medical floor, nurse on the floor noticed that patient mental status is declining with more confusion, labs on presentation also revealed evidence of elevated troponin level, elevated BUN and creatinine, mildly elevated ammonia level at 32. Patient has history of recurrent admissions to [facility] due to her multiple medical problems, she has known history of coronary artery disease, diabetes mellitus, liver cirrhosis, hepatocellular carcinoma, hypertension, chronic renal insufficiency, anemia, and history of diverticular disease with previous ileostomy placement. Past Medical History Past Medical History: Cancer, Diabetes Mellitus, GERD/Reflux, Hypertension, Liver Disease, Myocardial Infarction (SD), Renal Disease Additional Past Medical History / Comment(s): Hepatocellular liver cancer with chemo immobilization-last time being 2017, ascities with paracentesis's last dec, nonalcoholic liver cirrhosis, chronic pancytopenia, chronic elevated ammonia levels, hepatic encephalopathy, chronic elevated LFTs, chronic abdominal pain, stomach ulcer, diverticular disease with ileostomy, IDDM type II, iron anemia, CKD stage III, nonsustained vtach, UTI, high ammonia levels Last Myocardial Infarction Date:: unk History of Any Multi-Drug Resistant Organisms: MRSA Date of last positivie culture/infection: 12/30/18 10/23/18 MDRO Source:: MRSA URINE, MRSA STOOL Past Surgical History: Appendectomy, Bowel Resection, Section, Cholecystectomy, Hysterectomy, Tonsillectomy Additional Past Surgical History / Comment(s): Chemo immobilizations, liver biopsies, paracentesis, bowel resection d/t diverticulitis/ileostomy, R rotator cuff repair, carpal tunnel release-laterality unknown. Past Anesthesia/Blood Transfusion Reactions: No Reported Reaction Past Psychological History: Anxiety, Depression Additional Psychological History / Comment(s): Pt resides with her son and daughter in law and grandchildren. She ambulates with a walker. She is receiving [facility]. 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 Reformed smoker. . Retired. No experience. No animal exposures Smoking Status: Former smoker Past Alcohol Use History: None Reported Additional Past Alcohol Use History / Comment(s): started smoking 1963 and quit 1966 Past Drug Use History: None Reported - Past Family History Mother History Unknown: Yes Family Medical History: Congestive Heart Failure (CHF) Additional Family Medical History / Comment(s): Mother is 94 yrs old. Father Family Medical History: Chest Pain / Angina Additional Family Medical History / Comment(s): Father is . Medications and Allergies Home Medications Medication Instructions Recorded Confirmed Type Omeprazole [PriLOSEC] 20 mg PO BID 10/23/18 04/07/19 History Sucralfate [Carafate] 1 gm PO QID 10/23/18 04/07/19 History Insulin Regular, Human [NovoLIN R] 10 unit SQ AC-TID 10/24/18 04/07/19 History buPROPion SR [Wellbutrin SR] 150 mg PO DAILY #30 tablet.er 12/21/18 04/07/19 Rx Magnesium Oxide [William] 500 mg PO DAILY 12/30/18 04/07/19 History Torsemide [Demadex] 20 mg PO DAILY 30 Days #30 tab 01/09/19 04/07/19 Rx Cholecalciferol [Vitamin D3 (25 4,000 unit PO DAILY 01/16/19 04/07/19 History Mcg = 1000 Iu)] Ferrous Sulfate [Iron (65 MG 325 mg PO BID 01/31/19 04/07/19 History Elemental)] Insulin NPH [humuLIN N] 18 unit SQ BID vial 02/06/19 04/07/19 Rx Morphine Sulfate ER [Ms Contin] 15 mg PO Q12HR 3 Days #6 tablet 03/06/19 04/07/19 Rx clonazePAM [KlonoPIN] 0.5 mg PO DAILY PRN #3 tab 03/06/19 04/07/19 Rx Dicyclomine [Bentyl] 20 mg PO TID 30 Days #180 cap 03/31/19 04/07/19 Rx Metoprolol Tartrate [Lopressor] 12.5 mg PO BID #0 tab 03/31/19 04/07/19 Rx Baclofen [Lioresal] 5 mg PO TID PRN #10 tablet 04/03/19 04/07/19 Rx Potassium Chloride [K-Tab ER] 20 meq PO DAILY 3 Days #3 tablet.er 04/03/19 04/07/19 Rx Lactulose [Cephulac] 45 gm PO TID 04/07/19 04/07/19 History Allergies Allergy/AdvReac Type Severity Reaction Status Date / Time amlodipine Allergy Rash/Hives Verified 04/07/19 17:08 oxycodone Allergy Rash/Hives Verified 04/07/19 17:08 Penicillins Allergy Rash/Hives Verified 04/07/19 17:08 hydromorphone [From Dilaudid] AdvReac Mild tactile Verified 04/07/19 17:08 disturbance GREG Inhibitors AdvReac Cough Verified 04/07/19 17:08 sodium dodecyclbenzene Allergy Rash/Hives Uncoded 04/07/19 16:32 sulfonate Physical Exam Vitals: Vital Signs Temp Pulse Pulse Resp BP BP BP 04/08/19 13:15 04/08/19 13:11 112/68 04/08/19 13:10 04/08/19 12:15 98 F 54 L 16 100/63 04/08/19 05:06 97.6 F 69 18 110/71 04/07/19 23:00 60 18 121/64 04/07/19 22:53 55 L 04/07/19 22:22 97.4 F L 60 18 124/62 04/07/19 21:12 98.1 F 56 L 16 103/56 04/07/19 19:23 98.4 F 53 L 16 107/58 04/07/19 16:29 98.3 F 58 L 18 101/62 BP BP Pulse Ox 04/08/19 13:15 91/44 04/08/19 13:11 04/08/19 13:10 110/66 04/08/19 12:15 100 04/08/19 05:06 98 04/07/19 23:00 100 04/07/19 22:53 04/07/19 22:22 100 04/07/19 21:12 100 04/07/19 19:23 100 04/07/19 16:29 100 Intake and Output 04/07/19 04/08/19 04/08/19 22:59 06:59 14:59 Intake Total 850 Output Total 1000 Balance -150 Intake: Intake, IV Titration 650 Amount Sodium Chloride 0.9% 1, 650 000 ml @ 75 mls/hr IV . [id number] STA Rx#:[id number] Oral 200 Output: Emesis 1000 Other: Voiding Method Toilet Toilet # Voids 1 1 2 # Bowel Movements 1 Weight 83.915 kg In general patient is alert slightly confused in no apparent distress HEENT sclera was mild icterus otherwise normocephalic and atraumatic Neck is supple no JVD no goiter no lymphadenopathy Chest exam reveals a few scattered crackles no wheezing Cardiac exam reveals regular heart sounds no gallops no murmurs Abdomen is soft nontender no organomegaly with normal bowel sounds Extremity exam reveals no edema no cyanosis or clubbing Neurological examination reveals confusion otherwise no focal neurological defic it Results CBC & Chem 7: 04/08/19 10:02 04/08/19 10:02 Labs: Abnormal Lab Results - Last 24 Hours (Table) 04/07/19 04/07/19 04/07/19 Range/Units 16:49 16:49 16:49 RBC (3.80-5.40) m/uL MCV 102.3 H D (80.0-100.0) fL MCH 35.1 H (25.0-35.0) pg Plt Count 87 L D (150-450) k/uL PT 13.7 H (9.0-12.0) sec INR 1.3 H (<1.2) Sodium 136 L (137-145) mmol/L Chloride (98-107) mmol/L Carbon Dioxide 20 L (22-30) mmol/L BUN 33 H (7-17) mg/dL Creatinine 2.09 H (0.52-1.04) mg/dL Glucose 68 L (74-99) mg/dL POC Glucose (mg/dL) (75-99) mg/dL Total Bilirubin 3.2 H (0.2-1.3) mg/dL AST 118 H (14-36) U/L Alkaline Phosphatase 304 H (38-126) U/L Ammonia (<30) umol/L Creatine Kinase 187 H (30-135) U/L Troponin I (0.000-0.034) ng/mL Albumin (3.5-5.0) g/dL 04/07/19 04/07/19 04/07/19 Range/Units 16:49 21:46 22:33 RBC (3.80-5.40) m/uL MCV (80.0-100.0) fL MCH (25.0-35.0) pg Plt Count (150-450) k/uL PT (9.0-12.0) sec INR (<1.2) Sodium (137-145) mmol/L Chloride (98-107) mmol/L Carbon Dioxide (22-30) mmol/L BUN (7-17) mg/dL Creatinine (0.52-1.04) mg/dL Glucose (74-99) mg/dL POC Glucose (mg/dL) 67 L (75-99) mg/dL Total Bilirubin (0.2-1.3) mg/dL AST (14-36) U/L Alkaline Phosphatase (38-126) U/L Ammonia (<30) umol/L Creatine Kinase (30-135) U/L Troponin I 0.137 H* 0.134 H* (0.000-0.034) ng/mL Albumin (3.5-5.0) g/dL 04/07/19 04/08/19 04/08/19 Range/Units 23:53 03:47 05:33 RBC (3.80-5.40) m/uL MCV (80.0-100.0) fL MCH (25.0-35.0) pg Plt Count (150-450) k/uL PT (9.0-12.0) sec INR (<1.2) Sodium (137-145) mmol/L Chloride (98-107) mmol/L Carbon Dioxide (22-30) mmol/L BUN (7-17) mg/dL Creatinine (0.52-1.04) mg/dL Glucose (74-99) mg/dL POC Glucose (mg/dL) 133 H 147 H (75-99) mg/dL Total Bilirubin (0.2-1.3) mg/dL AST (14-36) U/L Alkaline Phosphatase (38-126) U/L Ammonia (<30) umol/L Creatine Kinase (30-135) U/L Troponin I 0.104 H* (0.000-0.034) ng/mL Albumin (3.5-5.0) g/dL 04/08/19 04/08/19 04/08/19 Range/Units 07:03 10:02 10:02 RBC 3.66 L (3.80-5.40) m/uL MCV 106.5 H (80.0-100.0) fL MCH (25.0-35.0) pg Plt Count 58 L (150-450) k/uL PT (9.0-12.0) sec INR (<1.2) Sodium (137-145) mmol/L Chloride (98-107) mmol/L Carbon Dioxide (22-30) mmol/L BUN (7-17) mg/dL Creatinine (0.52-1.04) mg/dL Glucose (74-99) mg/dL POC Glucose (mg/dL) 147 H (75-99) mg/dL Total Bilirubin (0.2-1.3) mg/dL AST (14-36) U/L Alkaline Phosphatase (38-126) U/L Ammonia 32 H (<30) umol/L Creatine Kinase (30-135) U/L Troponin I (0.000-0.034) ng/mL Albumin (3.5-5.0) g/dL 04/08/19 04/08/19 Range/Units 10:02 11:46 RBC (3.80-5.40) m/uL MCV (80.0-100.0) fL MCH (25.0-35.0) pg Plt Count (150-450) k/uL PT (9.0-12.0) sec INR (<1.2) Sodium (137-145) mmol/L Chloride 110 H (98-107) mmol/L Carbon Dioxide 18 L (22-30) mmol/L BUN 28 H (7-17) mg/dL Creatinine 1.58 H (0.52-1.04) mg/dL Glucose 176 H (74-99) mg/dL POC Glucose (mg/dL) 333 H (75-99) mg/dL Total Bilirubin 2.9 H (0.2-1.3) mg/dL AST 80 H (14-36) U/L Alkaline Phosphatase 258 H (38-126) U/L Ammonia (<30) umol/L Creatine Kinase (30-135) U/L Troponin I (0.000-0.034) ng/mL Albumin 3.0 L (3.5-5.0) g/dL Thrombosis Risk Factor Assmnt - Choose All That Apply Any of the Below Risk Factors Present?: Yes Each Factor Represents 1 point: Obesity (BMI >25) Other Risk Factors: Yes Each Risk Factor Represents 2 Points: Malignancy Other congenital or acquired thrombophilia - If yes, enter type in comment: No Thrombosis Risk Factor Assessment Total Risk Factor Score: 3 Thrombosis Risk Factor Assessment Level: Moderate Risk Assessment and Plan Plan: #1 elevated troponin level, patient is denying any chest pain or shortness of breath or palpitation, doubt acute coronary syndrome, will check serial enzymes cardiology consult has been requested. #2 mental status changes with confusion, resume lactulose recheck ammonia level, check computed tomography scan of the brain without contrast to rule out any other abnormality #3 chronic kidney disease stage III with acute on chronic renal failure #4 underlying history of diabetes mellitus type 2 #5 underlying history of liver cirrhosis, will add refaximin #6 underlying history of hepatocellular carcinoma patient was seen by oncology in the past #7 underlying history of hypertension At this time will recheck labs recheck ammonia level check computed tomography scan of the brain Resume home medication hold baclofen Had refaximin Recheck labs in the morning
[2019-04-08] MEDS: MORPHINE SULFATE ER 15 MG TABLET PO SCH ×2 (15:41→21:22)
--- NOTE | 2019-04-08 16:36 | CT ---
EXAMINATION TYPE: CT brain wo con DATE OF EXAM: 04/08/2019 COMPARISON: CT brain 01/31/2019 HISTORY: Mental status changes CT DLP: 975.4 mGycm Automated exposure control for dose reduction was used. Helical imaging through the brain FINDINGS: Cortical atrophy is stable and likely age-related. Periventricular white matter shows low attenuation similar to prior exam. There is no hemorrhage or hydrocephalus. Basal ganglia calcifications again s een. Calvarium is intact. Paranasal sinuses and mastoid air cells are well aerated. IMPRESSION: ESSENTIALLY STABLE EXAM. NO ACUTE ABNORMALITIES EVIDENT. AGE-RELATED ATROPHY AND PROBABLE CHRONIC SMA LL VESSEL ISCHEMIA.
[2019-04-08 17:24] LABS: Glucose,Whole Blood 174 mg/dL (75-99)
[2019-04-08] MEDS: LACTULOSE 20 GM/30 ML CUP PO SCH ×2 (17:28→21:23)
[2019-04-08] MEDS: DICYCLOMINE 10 MG CAP PO SCH ×2 (17:29→21:23)
[2019-04-08] MEDS: MAGNESIUM OXIDE 400 MG TAB PO SCH (17:29)
[2019-04-08] MEDS: SUCRALFATE 1 GM TAB PO SCH ×2 (17:32→21:23)
[2019-04-08 20:30] LABS: Glucose,Whole Blood 220 mg/dL (75-99)
[2019-04-08] MEDS: FERROUS SULFATE 325 MG TAB PO SCH (21:23)
[2019-04-08] MEDS: clonazePAM 0.5 MG TAB PO PRN (23:32)
[2019-04-09 07:17] LABS: Glucose,Whole Blood 107 mg/dL (75-99)
[2019-04-09] MEDS: INSULIN REGULAR 100 UNIT/ML VIAL SQ SCH ×3 (08:10→17:49)
[2019-04-09] MEDS: INSULIN NPH 300 UNIT/3 ML VIAL SQ SCH ×2 (08:12→17:47)
[2019-04-09] MEDS: POTASSIUM CHLORIDE ER 20 MEQ TAB.ER PO SCH (08:14)
[2019-04-09] MEDS: CHOLECALCIFEROL 1,000 UNIT TAB PO SCH (08:14)
[2019-04-09] MEDS: METOPROLOL TARTRATE 12.5 MG TAB PO SCH ×2 (08:15→22:33)
[2019-04-09] MEDS: SUCRALFATE 1 GM TAB PO SCH ×4 (08:15→22:33)
[2019-04-09] MEDS: MAGNESIUM OXIDE 400 MG TAB PO SCH (08:16)
[2019-04-09] MEDS: FERROUS SULFATE 325 MG TAB PO SCH ×2 (08:16→22:33)
[2019-04-09] MEDS: TORSEMIDE 20 MG TAB PO SCH (08:16)
[2019-04-09] MEDS: PANTOPRAZOLE 40 MG TABLET PO SCH (08:16)
[2019-04-09] MEDS: DICYCLOMINE 10 MG CAP PO SCH ×3 (08:16→22:33)
[2019-04-09] MEDS: LACTULOSE 20 GM/30 ML CUP PO SCH ×3 (08:17→22:34)
[2019-04-09] MEDS: buPROPion SR 150 MG TABLET.ER PO SCH (08:17)
[2019-04-09] MEDS: ASPIRIN 325 MG TAB PO SCH (08:17)
[2019-04-09] MEDS: MORPHINE SULFATE ER 15 MG TABLET PO SCH ×2 (08:23→22:33)
--- NOTE | 2019-04-09 11:02 | P.PN ---
Subjective Progress Note Date: 04/09/19 Charlene Keenan, is a 73-year-old female with known history of liver cirrhosis and hepatocellular carcinoma who presented to [facility] emergency room due to abnormal blood test that her primary care physician's office which revealed elevated troponin level. Patient was evaluated in the emergency room and was admitted to medical floor, nurse on the floor noticed that patient mental status is declining with more confusion, labs on presentation also revealed evidence of elevated troponin level, elevated BUN and creatinine, mildly elevated ammonia level at 32. Patient has history of recurrent admissions to [facility] due to her multiple medical problems, she has known history of coronary artery disease, diabetes mellitus, liver cirrhosis, hepatocellular carcinoma, h ypertension, chronic renal insufficiency, anemia, and history of diverticular disease with previous ileostomy placement. On 04/09/2019 patient was seen and examined on the medical floor she is alert slightly confused in no apparent distress there is no fever or chills no headache or dizziness no chest pain no shortness of breath no cough no nausea or vomiting no abdominal pain, she states her output through her ileostomy is more than usual, there is no burning was urination no frequency or urgency and no hematuria Objective - Vital Signs Vital signs: Vital Signs Temp 97.9 F 04/09/19 04:33 Pulse 66 04/09/19 04:33 Resp 16 04/09/19 04:33 BP 114/56 04/09/19 04:33 Pulse Ox 98 04/09/19 04:33 Intake & Output 04/08/19 04/09/19 04/09/19 18:59 06:59 18:59 Output Total 1 Balance -1 Output: Stool 1 Other: Voiding Method Toilet Toilet # Voids 2 1 - Exam In general patient is alert slightly confused in no apparent distress HEENT sclera was mild icterus otherwise normocephalic and atraumatic Neck is supple no JVD no goiter no lymphadenopathy Chest exam reveals a few scattered crackles no wheezing Cardiac exam reveals regular heart sounds no gallops no murmurs Abdomen is soft nontender no organomegaly with normal bowel sounds Extremity exam reveals no edema no cyanosis or clubbing Neurological examination reveals confusion otherwise no focal neurological deficit - Labs CBC & Chem 7: 04/08/19 10:02 04/08/19 10:02 Labs: Abnormal Lab Results - Last 24 Hours (Table) 04/08/19 04/08/19 04/08/19 Range/Units 10:02 10:02 11:46 RBC 3.66 L (3.80-5.40) m/uL MCV 106.5 H (80.0-100.0) fL Plt Count 58 L (150-450) k/uL Chloride 110 H (98-107) mmol/L Carbon Dioxide 18 L (22-30) mmol/L BUN 28 H (7-17) mg/dL Creatinine 1.58 H (0.52-1.04) mg/dL Glucose 176 H (74-99) mg/dL POC Glucose (mg/dL) 333 H (75-99) mg/dL Total Bilirubin 2.9 H (0.2-1.3) mg/dL AST 80 H (14-36) U/L Alkaline Phosphatase 258 H (38-126) U/L Albumin 3.0 L (3.5-5.0) g/dL 04/08/19 04/08/19 04/09/19 Range/Units 17:22 20:27 07:15 RBC (3.80-5.40) m/uL MCV (80.0-100.0) fL Plt Count (150-450) k/uL Chloride (98-107) mmol/L Carbon Dioxide (22-30) mmol/L BUN (7-17) mg/dL Creatinine (0.52-1.04) mg/dL Glucose (74-99) mg/dL POC Glucose (mg/dL) 174 H 220 H 107 H (75-99) mg/dL Total Bilirubin (0.2-1.3) mg/dL AST (14-36) U/L Alkaline Phosphatase (38-126) U/L Albumin (3.5-5.0) g/dL Assessment and Plan Plan: #1 elevated troponin level, patient is denying any chest pain or shortness of breath or palpitation, doubt acute coronary syndrome, will check serial enzymes cardiology consult has been requested. #2 mental status changes with confusion, resume lactulose recheck ammonia level, check computed tomography scan of the brain without contrast to rule out any other abnormality #3 chronic kidney disease stage III with acute on chronic renal failure #4 underlying history of diabetes mellitus type 2 #5 underlying history of liver cirrhosis, will add refaximin #6 underlying history of hepatocellular carcinoma patient was seen by oncology in the past #7 underlying history of hypertension At this time will recheck labs recheck ammonia level check computed tomography scan of the brain Resume home medication hold baclofen add refaximin Patient mental status is still abnormal cause is unclear ammonia level is normal computed tomography scan of the brain without contrast does not show any abnormality Will consult neurology at this time for evaluation of mental status changes Recheck labs in the morning
--- NOTE | 2019-04-09 11:35 | P.PN ---
Subjective Progress Note Date: 04/09/19 Principal diagnosis: Charlene is a 73-year-old female seen in consultation because of acute kidney injury from volume depletion. She has an ileostomy or colostomy that is functional but may be putting on more than usual, and additionally there might have been some nausea vomiting. Her history was somewhat unreliable as she was confused when she was admitted she is better today. Her appetite today is fair. No nausea vomiting for the last 2 days. No fever chills cough shortness of breath dizziness headache. No abdominal pain History of present illness ;This is a 73-year-old female seen in consultation because of acute kidney injury and chronic kidney disease. She was admitted because a slightly high troponin at her primary physician's office. She is somewhat confused and is unable to give any history. She denies any nausea vomiting diarrhea appetite was fair. Denies any history of dysuria frequency immaturity or kidney stones. No fever chills no cough no shortness of breath She is known with diabetes, hypertension, history of hepatocellular carcinoma with chemo, previous history of paracentesis liver cirrhosis and chronically elevated ammonia levels. Also known with diverticular disease She is not on any nonsteroidals. She is on omeprazole. Objective - Vital Signs Vital signs: Vital Signs Temp 97.9 F 04/09/19 04:33 Pulse 66 04/09/19 04:33 Resp 16 04/09/19 04:33 BP 114/56 04/09/19 04:33 Pulse Ox 98 04/09/19 04:33 Intake & Output 04/08/19 04/09/19 04/09/19 18:59 06:59 18:59 Output Total 1 Balance -1 Output: Stool 1 Other: Voiding Method Toilet Toilet # Voids 2 1 On examination is awake alert oriented today which is improvement since yesterday. HEENT exam no JVP neck is supple no facial asymmetry Lungs are clear to auscultation percussion good air entry bilaterally Heart sounds are unremarkable no murmur rub gallop. Abdomen soft ostomy bag present Extremity exam reveals no edema Neurologically awake alert and oriented to time and place and person today - Labs CBC & Chem 7: 04/08/19 10:02 04/08/19 10:02 Labs: Abnormal Lab Results - Last 24 Hours (Table) 04/08/19 04/08/19 04/08/19 Range/Units 10:02 10:02 11:46 RBC 3.66 L (3.80-5.40) m/uL MCV 106.5 H (80.0-100.0) fL Plt Count 58 L (150-450) k/uL Chloride 110 H (98-107) mmol/L Carbon Dioxide 18 L (22-30) mmol/L BUN 28 H (7-17) mg/dL Creatinine 1.58 H (0.52-1.04) mg/dL Glucose 176 H (74-99) mg/dL POC Glucose (mg/dL) 333 H (75-99) mg/dL Total Bilirubin 2.9 H (0.2-1.3) mg/dL AST 80 H (14-36) U/L Alkaline Phosphatase 258 H (38-126) U/L Albumin 3.0 L (3.5-5.0) g/dL 04/08/19 04/08/19 04/09/19 Range/Units 17:22 20:27 07:15 RBC (3.80-5.40) m/uL MCV (80.0-100.0) fL Plt Count (150-450) k/uL Chloride (98-107) mmol/L Carbon Dioxide (22-30) mmol/L BUN (7-17) mg/dL Creatinine (0.52-1.04) mg/dL Glucose (74-99) mg/dL POC Glucose (mg/dL) 174 H 220 H 107 H (75-99) mg/dL Total Bilirubin (0.2-1.3) mg/dL AST (14-36) U/L Alkaline Phosphatase (38-126) U/L Albumin (3.5-5.0) g/dL Assessment and Plan Assessment: Impression 1. Acute kidney injury secondary to volume depletion depletion most likely from increased ostomy output and possibly nausea vomiting. She had orthostatic changes yesterday. Her IV fluid was continued and her diuretic was discontinued yesterday. Her creatinine yesterday was improved to 1.58. Labs are available today. On 03/06/2019 inches creatinine of 0.92 which is probably her baseline. 2. Mild degree of non-gap acidosis with bicarb 18 and gap 9 etiology is acute kidney injury. 3. Diabetes mellitus blood sugars are controlled mostly. 4. Confusion and disorientation. Cause not very clear. Resolved 5. History of advanced alert carcinoma and cirrhosis, nonalcoholic. Ammonia level is 32. 6. Admitted because of high troponin level in her primary physician's office, here it was 0.137 and the most recent one is 0.104. 7. 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 Continue to hold off diuretics. 2. Continue IV fluid. 3. Check labs tomorrow.
[2019-04-09 11:40] LABS: Glucose,Whole Blood 96 mg/dL (75-99)
[2019-04-09] MEDS: RIFAXIMIN 550 MG TABLET PO SCH ×2 (12:36→22:34)
[2019-04-09 13:02] LABS: Calcium 8.9 mg/dL (8.4-10.2); Potassium 3.3 mmol/L (3.5-5.1)
--- NOTE | 2019-04-09 14:10 | ECHOF ---
Referral Reason:abn trops MEASUREMENTS -------- HEIGHT: 175.3 cm WEIGHT: 83.9 kg BP: IVSd: 1.4 cm (0.6 - 1.1) LVIDd: 3.7 cm (3.9 - 5.3) LVPWd: 1.4 cm (0.6 - 1.1) IVSs: 1.7 cm LVIDs: 2.4 cm LVPWs: 2.1 cm Ao Diam: 2.6 cm (2.0 - 3.7) AV Cusp: 1.1 cm (1.5 - 2.6) LA Diam: 4.0 cm (2.7 - 3.8) AV maxP.39 mmHg AV meanP.37 mmHg RAP: 5.00 mmHg RVSP: 18.04 mmHg FINDINGS -------- Sinus rhythm. Limited Study The left ventricular size is normal. There is moderate concentric left ventricular hypertrophy. O verall left ventricular systolic function is low-normal with, an EF between 50 - 55 %. Basal infero lateral hypokinesis. CONCLUSIONS -------- 1. Sinus rhythm. 2. Limited Study 3. The left ventricular size is normal. 4. There is moderate concentric left ventricular hypertrophy. 5. Overall left ventricular systolic function is low-normal with, an EF between 50 - 55 %. RECORD PRESS TENDER: Rhoda Moody [facility]
[2019-04-09 17:05] LABS: Glucose,Whole Blood 337 mg/dL (75-99)
--- NOTE | 2019-04-09 18:05 | P.CNNES ---
History of Present Illness Consult date: 04/09/19 Reason for Consult: Mental status change History of Present Illness: Patient is a 73-year-old female, who has been diagnosed with hepatic cirrhosis, liver cancer there for up in 2010, for which she had undergone chemo immobilization, followed by 3 sessions of chemotherapy afterwards. Patient's cancer is in remission. Patient does take lactulose for hepatic cirrhosis. The cause of cirrhosis is uncertain, as patient claims that she is never drinker, does not have hepatitis C. Patient states that in beginning of March she developed unconsciousness and was diagnosed with high ammonia level. She was unconscious for a whole day. Next is when she woke up, she was talking gibberish. Patient was doing fine. She was maintained on lactulose. Patient went home. Patient on this admission came to the hospital in the evening of 04/07/2019 for elevated troponin seen on outpatient left performed by primary care physician. Patient was also noted to have anemia and low platelets related to cirrhosis. Patient apparently yesterday had complete altered mental status, staring, not focusing, constantly repeating her name for what ever question was almost. She had very odd behavior, as per nursing report. No seizure-like activity noted. Patient today has much improved, able to answer questions follows directions. Patient does not remember details of events that happened yesterday. For this altered mental status neurology was consulted. Patient had ammonia level checked yesterday was 32, but when she was not feeling well, the levels have in fact improved 19. Patient denies any focal symptoms. Patient states that she still feels very forgetful, will be talking and cannot finish sentence, as she cannot remember. Patient's most recent blood test shows sodium 142 potassium 3.3 BU and 21, creatinine 1.35. AST is 80, ALT 37. Ammonia 19, B12 normal 1270. Folic acid normal TSH normal. Patient had computed tomography scan of head, which revealed no acute abnormalities. Age-related atrophy and probable chronic small vessel ischemia. Review of Systems mental confusion, forgetfulness. Denies any chest pain. Denies shortness of breath. Denies diplopia. No nausea vomiting. Past Medical History Past Medical History: Cancer, Diabetes Mellitus, GERD/Reflux, Hypertension, Liver Disease, Myocardial Infarction (CT), Renal Disease Additional Past Medical History / Comment(s): Hepatocellular liver cancer with chemo immobilization-last time being 2017, ascities with paracentesis's last feb, nonalcoholic liver cirrhosis, chronic pancytopenia, chronic elevated ammonia levels, hepatic encephalopathy, chronic elevated LFTs, chronic abdominal pain, stomach ulcer, diverticular disease with ileostomy, IDDM type II, iron anemia, CKD stage III, nonsustained vtach, UTI, high ammonia levels Last Myocardial Infarction Date:: unk History of Any Multi-Drug Resistant Organisms: MRSA Date of last positivie culture/infection: 12/30/18 10/23/18 MDRO Source:: MRSA URINE, MRSA STOOL Past Surgical History: Appendectomy, Bowel Resection, Section, Cholecystectomy, Hysterectomy, Tonsillectomy Additional Past Surgical History / Comment(s): Chemo immobilizations, liver biopsies, paracentesis, bowel resection d/t diverticulitis/ileostomy, R rotator cuff repair, carpal tunnel release-laterality unknown. Past Anesthesia/Blood Transfusion Reactions: No Reported Reaction Past Psychological History: Anxiety, Depression Additional Psychological History / Comment(s): Pt resides with her son and daughter in law and grandchildren. She ambulates with a walker. She is receiving [facility]. 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 Reformed smoker. . Retired. No experience. No animal exposures Smoking Status: Former smoker Past Alcohol Use History: None Reported Additional Past Alcohol Use History / Comment(s): started smoking 1962 and quit 1965 Past Drug Use History: None Reported - Past Family History Mother History Unknown: Yes Family Medical History: Congestive Heart Failure (CHF) Additional Family Medical History / Comment(s): Mother is 94 yrs old. Father Family Medical History: Chest Pain / Angina Additional Family Medical History / Comment(s): Father is . Medications and Allergies Home Medications Medication Instructions Recorded Confirmed Type Omeprazole [PriLOSEC] 20 mg PO BID 10/23/18 04/07/19 History Sucralfate [Carafate] 1 gm PO QID 10/23/18 04/07/19 History Insulin Regular, Human [NovoLIN R] 10 unit SQ AC-TID 10/24/18 04/07/19 History buPROPion SR [Wellbutrin SR] 150 mg PO DAILY #30 tablet.er 12/21/18 04/07/19 Rx Magnesium Oxide [William] 500 mg PO DAILY 12/30/18 04/07/19 History Torsemide [Demadex] 20 mg PO DAILY 30 Days #30 tab 01/09/19 04/07/19 Rx Cholecalciferol [Vitamin D3 (25 4,000 unit PO DAILY 01/16/19 04/07/19 History Mcg = 1000 Iu)] Ferrous Sulfate [Iron (65 MG 325 mg PO BID 01/31/19 04/07/19 History Elemental)] Insulin NPH [humuLIN N] 18 unit SQ BID vial 02/06/19 04/07/19 Rx Morphine Sulfate ER [Ms Contin] 15 mg PO Q12HR 3 Days #6 tablet 03/06/19 04/07/19 Rx clonazePAM [KlonoPIN] 0.5 mg PO DAILY PRN #3 tab 03/06/19 04/07/19 Rx Dicyclomine [Bentyl] 20 mg PO TID 30 Days #180 cap 03/31/19 04/07/19 Rx Metoprolol Tartrate [Lopressor] 12.5 mg PO BID #0 tab 03/31/19 04/07/19 Rx Baclofen [Lioresal] 5 mg PO TID PRN #10 tablet 04/03/19 04/07/19 Rx Potassium Chloride [K-Tab ER] 20 meq PO DAILY 3 Days #3 tablet.er 04/03/19 04/07/19 Rx Lactulose [Cephulac] 45 gm PO TID 04/07/19 04/07/19 History Allergies Allergy/AdvReac Type Severity Reaction Status Date / Time amlodipine Allergy Rash/Hives Verified 04/07/19 17:08 oxycodone Allergy Rash/Hives Verified 04/07/19 17:08 Penicillins Allergy Rash/Hives Verified 04/07/19 17:08 hydromorphone [From Dilaudid] AdvReac Mild tactile Verified 04/07/19 17:08 disturbance GREG Inhibitors AdvReac Cough Verified 04/07/19 17:08 sodium dodecyclbenzene Allergy Rash/Hives Uncoded 04/07/19 16:32 sulfonate Physical Examination - Vital Signs Vital Signs: Vital Signs Temp Pulse Resp BP BP Pulse Ox 04/09/19 11:30 97.9 F 52 L 18 108/51 100 04/09/19 04:33 97.9 F 66 16 114/56 98 04/08/19 20:54 97.9 F 66 16 109/55 100 Intake and Output 04/09/19 04/09/19 04/09/19 06:59 14:59 22:59 Intake Total 600 Output Total 2 Balance 598 Intake: Intake, IV Titration 600 Amount Sodium Chloride 0.9% 1, 600 000 ml @ 75 mls/hr IV . [id number] STA Rx#:[id number] Output: Stool 2 Other: Voiding Method Toilet # Voids 1 On examination patient is an elderly female, very pleasant, in no acute distress. Patient is alert and awake fully oriented. Patient knows that it is March 2019, but could not tell the date and thinks it's , although it's actually Wednesday. Patient knows that it is [facility] in [facility]. She knows her date of , and name of the president. Her speech and language functions are normal. No aphasia or dysarthria. Attention span is intact but concentration slightly decreased. Slightly slow mentation. On cranial nerve examination pupils are round and reacting, visual simon are full. Extraocular muscles are intact with no nystagmus. Face is symmetric and tongue protrudes the midline. Palatal elevation sensation normal. On muscle strength testing, there is no pronator drift and the strength is normal in arms and legs distally and proximally. Reflexes are symmetric and plantars are questionable up versus down. Sensory touch is equal. No ataxia for [id number] testing tone and bulk of muscles normal. Results - Laboratory Findings CBC and BMP: 04/08/19 10:02 04/09/19 11:56 Abnormal Lab Findings: Abnormal Labs 04/07/19 04/07/19 04/07/19 16:49 16:49 16:49 RBC MCV 102.3 H D MCH 35.1 H Plt Count 87 L D PT 13.7 H INR 1.3 H Sodium 136 L Potassium Chloride Carbon Dioxide 20 L BUN 33 H Creatinine 2.09 H Glucose 68 L POC Glucose (mg/dL) Total Bilirubin 3.2 H AST 118 H Alkaline Phosphatase 304 H Ammonia Creatine Kinase 187 H Troponin I Albumin 04/07/19 04/07/19 04/07/19 16:49 21:46 22:33 RBC MCV MCH Plt Count PT INR Sodium Potassium Chloride Carbon Dioxide BUN Creatinine Glucose POC Glucose (mg/dL) 67 L Total Bilirubin AST Alkaline Phosphatase Ammonia Creatine Kinase Troponin I 0.137 H* 0.134 H* Albumin 04/07/19 04/08/19 04/08/19 23:53 03:47 05:33 RBC MCV MCH Plt Count PT INR Sodium Potassium Chloride Carbon Dioxide BUN Creatinine Glucose POC Glucose (mg/dL) 133 H 147 H Total Bilirubin AST Alkaline Phosphatase Ammonia Creatine Kinase Troponin I 0.104 H* Albumin 04/08/19 04/08/19 04/08/19 07:03 10:02 10:02 RBC 3.66 L MCV 106.5 H MCH Plt Count 58 L PT INR Sodium Potassium Chloride Carbon Dioxide BUN Creatinine Glucose POC Glucose (mg/dL) 147 H Total Bilirubin AST Alkaline Phosphatase Ammonia 32 H Creatine Kinase Troponin I Albumin 04/08/19 04/08/19 04/08/19 10:02 11:46 17:22 RBC MCV MCH Plt Count PT INR Sodium Potassium Chloride 110 H Carbon Dioxide 18 L BUN 28 H Creatinine 1.58 H Glucose 176 H POC Glucose (mg/dL) 333 H 174 H Total Bilirubin 2.9 H AST 80 H Alkaline Phosphatase 258 H Ammonia Creatine Kinase Troponin I Albumin 3.0 L 04/08/19 04/09/19 04/09/19 20:27 07:15 11:56 RBC MCV MCH Plt Count PT INR Sodium Potassium 3.3 L Chloride 111 H Carbon Dioxide BUN 21 H Creatinine 1.35 H Glucose POC Glucose (mg/dL) 220 H 107 H Total Bilirubin AST Alkaline Phosphatase Ammonia Creatine Kinase Troponin I Albumin 04/09/19 17:04 RBC MCV MCH Plt Count PT INR Sodium Potassium Chloride Carbon Dioxide BUN Creatinine Glucose POC Glucose (mg/dL) 337 H Total Bilirubin AST Alkaline Phosphatase Ammonia Creatine Kinase Troponin I Albumin Assessment and Plan Assessment: * Altered mental status, possible due to metabolic/hepatic encephalopathy. Patient had acute renal injury and mildly elevated ammonia, likely the cause of altered mental status. Her ammonia level is now normal 19. * Acute kidney injury secondary to volume depletion. * Diabetes, controlled. * History of hepatocellular carcinoma and hepatic cirrhosis. Plan: * Patient's mentation has much improved. She still minimally encephalopathic. * We will check EEG to evaluate for encephalopathy, rule out any epileptiform activity. * We will check carotid Doppler. * Your medical management. * Continue lactulose.
[2019-04-09 20:41] LABS: Glucose,Whole Blood 259 mg/dL (75-99)
[2019-04-09] MEDS: clonazePAM 0.5 MG TAB PO PRN (23:52)
[2019-04-10 00:44] LABS: Potassium 3.6 mmol/L (3.5-5.1); Total Bilirubin 1.9 mg/dL (0.2-1.3); Total Protein 6.7 g/dL (6.3-8.2)
[2019-04-10 03:36] LABS: Glucose,Whole Blood 87 mg/dL (75-99)
[2019-04-10 07:20] LABS: Glucose,Whole Blood 192 mg/dL (75-99)
[2019-04-10] MEDS: FERROUS SULFATE 325 MG TAB PO SCH ×2 (07:52→21:52)
[2019-04-10] MEDS: ASPIRIN 325 MG TAB PO SCH (07:53)
[2019-04-10] MEDS: MORPHINE SULFATE ER 15 MG TABLET PO SCH ×2 (07:53→21:52)
[2019-04-10] MEDS: METOPROLOL TARTRATE 12.5 MG TAB PO SCH ×2 (07:54→21:52)
[2019-04-10] MEDS: MAGNESIUM OXIDE 400 MG TAB PO SCH (07:54)
[2019-04-10] MEDS: LACTULOSE 20 GM/30 ML CUP PO SCH ×3 (07:54→21:53)
[2019-04-10] MEDS: CHOLECALCIFEROL 1,000 UNIT TAB PO SCH (07:54)
[2019-04-10] MEDS: PANTOPRAZOLE 40 MG TABLET PO SCH (07:54)
[2019-04-10] MEDS: POTASSIUM CHLORIDE ER 20 MEQ TAB.ER PO SCH (07:54)
[2019-04-10] MEDS: DICYCLOMINE 10 MG CAP PO SCH ×3 (07:56→21:53)
[2019-04-10] MEDS: RIFAXIMIN 550 MG TABLET PO SCH ×2 (07:57→21:53)
[2019-04-10] MEDS: SUCRALFATE 1 GM TAB PO SCH ×4 (07:57→21:53)
[2019-04-10] MEDS: buPROPion SR 150 MG TABLET.ER PO SCH (07:57)
[2019-04-10] MEDS: TORSEMIDE 20 MG TAB PO SCH (07:57)
[2019-04-10] MEDS: INSULIN NPH 300 UNIT/3 ML VIAL SQ SCH ×2 (07:57→17:39)
[2019-04-10] MEDS: INSULIN REGULAR 100 UNIT/ML VIAL SQ SCH ×3 (07:58→17:39)
[2019-04-10 08:06] LABS: Albumin 2.7 g/dL (3.5-5.0); Calcium 8.4 mg/dL (8.4-10.2); Potassium 4.5 mmol/L (3.5-5.1); Total Bilirubin 2.4 mg/dL (0.2-1.3); Total Protein 6.2 g/dL (6.3-8.2)
[2019-04-10 08:40] LABS: Basophils # (A) 0.1 k/uL (0-0.2); Basophils % (A) 1 %; Eosinophils # (A) 0.3 k/uL (0-0.7); Eosinophils % (A) 4 %; HCT 40.8 % (34.0-46.0); HGB 13.3 gm/dL (11.4-16.0); Lymphocytes # (A) 1.6 k/uL (1.0-4.8); Lymphocytes % (A) 21 %; MCH 34.8 pg (25.0-35.0); MCHC 32.5 g/dL (31.0-37.0); MCV 107.2 fL (80.0-100.0); Macrocytosis Moderate; Mean Platelet Volume 9.7; Monocytes # (A) 0.5 k/uL (0-1.0); Monocytes % (A) 6 %; Neutrophils # (A) 4.9 k/uL (1.3-7.7); Neutrophils % (A) 66 %; RBC 3.81 m/uL (3.80-5.40); RDW 15.5 % (11.5-15.5); WBC 7.5 k/uL (3.8-10.6)
[2019-04-10 09:02] LABS: Platelet Count 68 k/uL (150-450)
--- NOTE | 2019-04-10 11:00 | P.PN ---
Subjective Progress Note Date: 04/10/19 Charlene Keenan, is a 73-year-old female with known history of liver cirrhosis and hepatocellular carcinoma who presented to [facility] emergency room due to abnormal blood test that her primary care physician's office which revealed elevated troponin level. Patient was evaluated in the emergency room and was admitted to medical floor, nurse on the floor noticed that patient mental status is declining with more confusion, labs on presentation also revealed evidence of elevated troponin level, elevated BUN and creatinine, mildly elevated ammonia level at 32. Patient has history of recurrent admissions to [facility] due to her multiple medical problems, she has known history of coronary artery disease, diabetes mellitus, liver cirrhosis, hepatocellular carcinoma, hy pertension, chronic renal insufficiency, anemia, and history of diverticular disease with previous ileostomy placement. On 04/09/2019 patient was seen and examined on the medical floor she is alert s lightly confused in no apparent distress there is no fever or chills no headache or dizziness no chest pain no shortness of breath no cough no nausea or vomiting no abdominal pain, she states her output through her ileostomy is more than usual, there is no burning was urination no frequency or urgency and no hematuria On 04/10/2019 patient is alert and oriented 3. Patient's confusion slightly i mproved. Creatinine improving to 1.08. Neurology services are following. Patient denies chest pain or shortness breath. Patient denies nausea vomiting or diarrhea. Patient denies any urinary burning or frequency Objective - Vital Signs Vital signs: Vital Signs Temp 97.7 F 04/10/19 05:00 Pulse 54 L 04/10/19 05:00 Resp 18 04/10/19 05:00 BP 103/67 04/10/19 05:00 Pulse Ox 99 04/10/19 05:00 Intake & Output 04/09/19 04/10/19 04/10/19 18:59 06:59 18:59 Intake Total 600 1430 Output Total 2 4 Balance 598 1426 Intake: Intake, IV Titration 600 Amount Sodium Chloride 0.9% 1, 600 000 ml @ 75 mls/hr IV . [id number] STA Rx#:[id number] Oral 1430 Output: Stool 2 4 Other: Voiding Method Toilet # Voids 1 # Bowel Movements 2 - Exam In general patient is alert slightly confused in no apparent distress HEENT sclera was mild icterus otherwise normocephalic and atraumatic Neck is supple no JVD no goiter no lymphadenopathy Chest exam reveals a few scattered crackles no wheezing Cardiac exam reveals regular heart sounds no gallops no murmurs Abdomen is soft nontender no organomegaly with normal bowel sounds Extremity exam reveals no edema no cyanosis or clubbing Neurological examination reveals confusion otherwise no focal neurological deficit - Labs CBC & Chem 7: 04/10/19 07:23 04/10/19 07:23 Labs: Abnormal Lab Results - Last 24 Hours (Table) 04/09/19 04/09/19 04/09/19 Range/Units 11:56 17:04 20:39 MCV (80.0-100.0) fL Plt Count (150-450) k/uL Potassium 3.3 L (3.5-5.1) mmol/L Chloride 111 H (98-107) mmol/L Carbon Dioxide (22-30) mmol/L BUN 21 H (7-17) mg/dL Creatinine 1.35 H (0.52-1.04) mg/dL Glucose (74-99) mg/dL POC Glucose (mg/dL) 337 H 259 H (75-99) mg/dL Total Bilirubin (0.2-1.3) mg/dL AST (14-36) U/L Alkaline Phosphatase (38-126) U/L Total Protein (6.3-8.2) g/dL Albumin (3.5-5.0) g/dL 04/10/19 04/10/19 04/10/19 Range/Units 00:19 07:18 07:23 MCV 107.2 H (80.0-100.0) fL Plt Count 68 L (150-450) k/uL Potassium (3.5-5.1) mmol/L Chloride 114 H (98-107) mmol/L Carbon Dioxide 20 L (22-30) mmol/L BUN 19 H (7-17) mg/dL Creatinine 1.20 H (0.52-1.04) mg/dL Glucose 102 H (74-99) mg/dL POC Glucose (mg/dL) 192 H (75-99) mg/dL Total Bilirubin 1.9 H (0.2-1.3) mg/dL AST 76 H (14-36) U/L Alkaline Phosphatase 284 H (38-126) U/L Total Protein (6.3-8.2) g/dL Albumin 3.0 L (3.5-5.0) g/dL 04/10/19 Range/Units 07:23 MCV (80.0-100.0) fL Plt Count (150-450) k/uL Potassium (3.5-5.1) mmol/L Chloride 113 H (98-107) mmol/L Carbon Dioxide 19 L (22-30) mmol/L BUN 20 H (7-17) mg/dL Creatinine 1.08 H (0.52-1.04) mg/dL Glucose 165 H (74-99) mg/dL POC Glucose (mg/dL) (75-99) mg/dL Total Bilirubin 2.4 H (0.2-1.3) mg/dL AST 76 H (14-36) U/L Alkaline Phosphatase 241 H (38-126) U/L Total Protein 6.2 L (6.3-8.2) g/dL Albumin 2.7 L (3.5-5.0) g/dL Assessment and Plan Assessment: #1 elevated troponin level, patient is denying any chest pain or shortness of breath or palpitation, doubt acute coronary syndrome, will check serial enzymes cardiology consult has been requested. 2-D echo completed showing EF of 50-55% #2 mental status changes with confusion. Ammonia level 19. Head CT completed showing essentially stable exam no acute abnormalities evident. Age-related atrophy and probable chronic small vessel ischemia. Neurology services are following. Carotid Doppler ordered EEG ordered #3 chronic kidney disease stage III with acute on chronic renal failure. Creati nine improving to 1.20 and bun 19 nephrology services have following #4 underlying history of diabetes mellitus type 2 #5 underlying history of liver cirrhosis, will add refaximin #6 underlying history of hepatocellular carcinoma patient was seen by oncology in the past #7 underlying history of hypertension DVT prophylaxis SCDs due to chronic thrombocytopenia. GI prophylaxis Protonix Physical therapy consulted consulted. Social work services consult possible ECF I performed an examination of the patient and discussed their management with the Nurse Practitioner. I have reviewed the Nurse Practitioner's notes and agree with the documented findings and plan of care
--- NOTE | 2019-04-10 11:06 | US ---
EXAMINATION TYPE: US carotid duplex BILAT DATE OF EXAM: 04/10/2019 COMPARISON: NONE CLINICAL HISTORY: Altered mental status. AMS EXAM MEASUREMENTS: RIGHT: Peak Systolic Velocity (PSV) cm/sec ----- Right CCA: 82.0 ----- Right ICA: 76.5 ----- Right ECA: 86.7 ICA/CCA ratio: 0.9 RIGHT: End Diastole cm/sec ----- Right CCA: 18.2 ----- Right ICA: 9.5 ----- Right ECA: 7.4 LEFT: Peak Systolic Velocity (PSV) cm/sec ----- Left CCA: 90.8 ----- Left ICA: 83.1 ----- Left ECA: 114.5 ICA/CCA ratio: 0.9 LEFT: End Diastole cm/sec ----- Left CCA: 21.5 ----- Left ICA: 29.2 ----- Left ECA: 14.0 VERTEBRALS (direction of flow): Right Vertebral: Antegrade Left Vertebral: Antegrade Rhythm: Arrhythmia No significant stenosis seen IMPRESSION: 1. No significant flow-limiting stenosis. Criteria for Assigning % of Stenosis / Diameter reduction (Estimation based on the indirect measurements of the internal carotid artery velocities (ICA PSV). 1. Normal (no stenosis)=ICA PSV < 125 cm/s: ratio < 2.0: ICA EDV<40 cm/s. 2. Less than 50% stenosis=ICA PSV < 125 cm/s: ratio < 2.0: ICA EDV<40 cm/s. 3. 50 to 69% stenosis=ICA PSV of 125 to 230 cm/s: ration 2.0 ? 4.0: ICA EDV 40-100 cm/s. 4. Greater than 70% stenosis to near occlusion= ICA PSV > 230 cm/s: ratio > 4.0: ICA EDV > 100 cm/s. 5. Near occlusion= ICA PSV velocities may be low or undetectable: variable ratio and ICA EDV. 6. Total occlusion=unable to detect flow.
[2019-04-10 11:12] LABS: Glucose,Whole Blood 237 mg/dL (75-99)
[2019-04-10 15:07] VITALS: BMI 27.3
--- NOTE | 2019-04-10 17:02 | P.PN ---
Subjective Progress Note Date: 04/10/19 Patient denies any new neurological complaints. States more alert and awake. No new concerns. Objective - Vital Signs Vital signs: Vital Signs Temp 97.9 F 04/10/19 12:09 Pulse 58 L 04/10/19 12:09 Resp 18 04/10/19 12:09 BP 108/69 04/10/19 12:09 Pulse Ox 100 04/10/19 12:09 Intake & Output 04/09/19 04/10/19 04/10/19 18:59 06:59 18:59 Intake Total 600 1430 800 Output Total 2 4 1 Balance 598 1426 799 Weight 83.915 kg Intake: Intake, IV Titration 600 Amount Sodium Chloride 0.9% 1, 600 000 ml @ 75 mls/hr IV . [id number] STA Rx#:[id number] Oral 1430 800 Output: Stool 2 4 1 Other: Voiding Method Toilet Toilet # Voids 1 # Bowel Movements 2 - Exam Patient more alert and awake. Examination nonfocal. Fairly well oriented. - Labs CBC & Chem 7: 04/10/19 07:23 04/10/19 07:23 Labs: Abnormal Lab Results - Last 24 Hours (Table) 04/09/19 04/09/19 04/10/19 Range/Units 17:04 20:39 00:19 MCV (80.0-100.0) fL Plt Count (150-450) k/uL Chloride 114 H (98-107) mmol/L Carbon Dioxide 20 L (22-30) mmol/L BUN 19 H (7-17) mg/dL Creatinine 1.20 H (0.52-1.04) mg/dL Glucose 102 H (74-99) mg/dL POC Glucose (mg/dL) 337 H 259 H (75-99) mg/dL Total Bilirubin 1.9 H (0.2-1.3) mg/dL AST 76 H (14-36) U/L Alkaline Phosphatase 284 H (38-126) U/L Total Protein (6.3-8.2) g/dL Albumin 3.0 L (3.5-5.0) g/dL 04/10/19 04/10/19 04/10/19 Range/Units 07:18 07:23 07:23 MCV 107.2 H (80.0-100.0) fL Plt Count 68 L (150-450) k/uL Chloride 113 H (98-107) mmol/L Carbon Dioxide 19 L (22-30) mmol/L BUN 20 H (7-17) mg/dL Creatinine 1.08 H (0.52-1.04) mg/dL Glucose 165 H (74-99) mg/dL POC Glucose (mg/dL) 192 H (75-99) mg/dL Total Bilirubin 2.4 H (0.2-1.3) mg/dL AST 76 H (14-36) U/L Alkaline Phosphatase 241 H (38-126) U/L Total Protein 6.2 L (6.3-8.2) g/dL Albumin 2.7 L (3.5-5.0) g/dL 04/10/19 Range/Units 11:10 MCV (80.0-100.0) fL Plt Count (150-450) k/uL Chloride (98-107) mmol/L Carbon Dioxide (22-30) mmol/L BUN (7-17) mg/dL Creatinine (0.52-1.04) mg/dL Glucose (74-99) mg/dL POC Glucose (mg/dL) 237 H (75-99) mg/dL Total Bilirubin (0.2-1.3) mg/dL AST (14-36) U/L Alkaline Phosphatase (38-126) U/L Total Protein (6.3-8.2) g/dL Albumin (3.5-5.0) g/dL Assessment and Plan Assessment: * Altered mental status, possible due to metabolic/hepatic encephalopathy. Patient had acute renal injury and mildly elevated ammonia, likely the cause of altered mental status. Her ammonia level is now normal 19. * Acute kidney injury secondary to volume depletion. * Diabetes, controlled. * History of hepatocellular carcinoma and hepatic cirrhosis. Plan: * Patient's mentation has much improved. She still minimally encephalopathic. * Await EEG to evaluate for encephalopathy, rule out any epileptiform activity. * Carotid Doppler negative. * Your medical management. * Continue lactulose.
[2019-04-10 17:32] LABS: Glucose,Whole Blood 148 mg/dL (75-99)
[2019-04-10 19:48] LABS: Glucose,Whole Blood 176 mg/dL (75-99)
[2019-04-11 07:05] LABS: Glucose,Whole Blood 177 mg/dL (75-99)
[2019-04-11 07:27] LABS: Basophils % (A) 1 %; Eosinophils # (A) 0.3 k/uL (0-0.7); Eosinophils % (A) 6 %; HCT 34.9 % (34.0-46.0); HGB 11.4 gm/dL (11.4-16.0); Lymphocytes # (A) 1.2 k/uL (1.0-4.8); Lymphocytes % (A) 23 %; MCH 34.8 pg (25.0-35.0); MCHC 32.7 g/dL (31.0-37.0); MCV 106.2 fL (80.0-100.0); Macrocytosis Moderate; Mean Platelet Volume 9.6; Monocytes # (A) 0.4 k/uL (0-1.0); Monocytes % (A) 7 %; Neutrophils # (A) 3.1 k/uL (1.3-7.7); Neutrophils % (A) 60 %; RBC 3.29 m/uL (3.80-5.40); RDW 15.1 % (11.5-15.5); WBC 5.2 k/uL (3.8-10.6)
[2019-04-11 07:46] LABS: Albumin 2.3 g/dL (3.5-5.0); Calcium 7.9 mg/dL (8.4-10.2); Potassium 4.4 mmol/L (3.5-5.1); Total Bilirubin 1.7 mg/dL (0.2-1.3); Total Protein 5.4 g/dL (6.3-8.2)
[2019-04-11 07:54] LABS: Platelet Count 51 k/uL (150-450)
[2019-04-11] MEDS: PANTOPRAZOLE 40 MG TABLET PO SCH (08:21)
[2019-04-11] MEDS: FERROUS SULFATE 325 MG TAB PO SCH ×2 (08:21→20:38)
[2019-04-11] MEDS: MORPHINE SULFATE ER 15 MG TABLET PO SCH ×2 (08:21→20:38)
[2019-04-11] MEDS: POTASSIUM CHLORIDE ER 20 MEQ TAB.ER PO SCH (08:22)
[2019-04-11] MEDS: METOPROLOL TARTRATE 12.5 MG TAB PO SCH ×2 (08:22→20:37)
[2019-04-11] MEDS: LACTULOSE 20 GM/30 ML CUP PO SCH ×3 (08:22→20:38)
[2019-04-11] MEDS: MAGNESIUM OXIDE 400 MG TAB PO SCH (08:22)
[2019-04-11] MEDS: CHOLECALCIFEROL 1,000 UNIT TAB PO SCH (08:22)
[2019-04-11] MEDS: ASPIRIN 325 MG TAB PO SCH (08:22)
[2019-04-11] MEDS: SUCRALFATE 1 GM TAB PO SCH ×4 (08:23→20:37)
[2019-04-11] MEDS: RIFAXIMIN 550 MG TABLET PO SCH ×2 (08:23→20:37)
[2019-04-11] MEDS: DICYCLOMINE 10 MG CAP PO SCH ×3 (08:23→20:37)
[2019-04-11] MEDS: buPROPion SR 150 MG TABLET.ER PO SCH (08:24)
[2019-04-11] MEDS: TORSEMIDE 20 MG TAB PO SCH (08:24)
[2019-04-11] MEDS: INSULIN NPH 300 UNIT/3 ML VIAL SQ SCH ×2 (08:27→18:18)
[2019-04-11] MEDS: INSULIN REGULAR 100 UNIT/ML VIAL SQ SCH ×3 (08:29→18:17)
--- NOTE | 2019-04-11 10:41 | P.PN ---
Subjective Progress Note Date: 04/11/19 Charlene Keenan, is a 73-year-old female with known history of liver cirrhosis and hepatocellular carcinoma who presented to [facility] emergency room due to abnormal blood test that her primary care physician's office which revealed elevated troponin level. Patient was evaluated in the emergency room and was admitted to medical floor, nurse on the floor noticed that patient mental status is declining with more confusion, labs on presentation also revealed evidence of elevated troponin level, elevated BUN and creatinine, mildly elevated ammonia level at 32. Patient has history of recurrent admissions to [facility] due to her multiple medical problems, she has known history of coronary artery disease, diabetes mellitus, liver cirrhosis, hepatocellular carcinoma, hy pertension, chronic renal insufficiency, anemia, and history of diverticular disease with previous ileostomy placement. On 04/09/2019 patient was seen and examined on the medical floor she is alert s lightly confused in no apparent distress there is no fever or chills no headache or dizziness no chest pain no shortness of breath no cough no nausea or vomiting no abdominal pain, she states her output through her ileostomy is more than usual, there is no burning was urination no frequency or urgency and no hematuria On 04/10/2019 patient is alert and oriented 3. Patient's confusion slightly i mproved. Creatinine improving to 1.08. Neurology services are following. Patient denies chest pain or shortness breath. Patient denies nausea vomiting or diarrhea. Patient denies any urinary burning or frequency On 04/11/2019 patient is alert and oriented 3. Patient has no confusion. Ammonia level 34. Patient on lactulose. Cardiology an neurology services are following. EEG has been ordered per neurology. Patient denies chest pain or shortness of breath. Patient denies nausea vomiting or diarrhea. Patient denies any urinary burning or frequency Objective - Vital Signs Vital signs: Vital Signs Temp 98.3 F 04/11/19 05:00 Pulse 54 L 04/11/19 05:00 Resp 18 04/11/19 05:00 BP 112/65 04/11/19 05:00 Pulse Ox 99 04/11/19 05:00 Intake & Output 04/10/19 04/11/19 04/11/19 18:59 06:59 18:59 Intake Total 800 1130 Output Total 2 Balance 798 1130 Weight 83.915 kg Intake: Oral 800 1130 Output: Stool 2 Other: Voiding Method Toilet Toilet # Voids 1 # Bowel Movements 1 - Exam In general patient is alert slightly confused in no apparent distress HEENT sclera was mild icterus otherwise normocephalic and atraumatic Neck is supple no JVD no goiter no lymphadenopathy Chest exam reveals a few scattered crackles no wheezing Cardiac exam reveals regular heart sounds no gallops no murmurs Abdomen is soft nontender no organomegaly with normal bowel sounds Extremity exam reveals no edema no cyanosis or clubbing Neurological examination reveals confusion otherwise no focal neurological deficit. Alert and Oriented 3 - Labs CBC & Chem 7: 04/11/19 06:55 04/11/19 06:55 Labs: Abnormal Lab Results - Last 24 Hours (Table) 04/10/19 04/10/19 04/10/19 Range/Units 11:10 17:31 19:46 RBC (3.80-5.40) m/uL MCV (80.0-100.0) fL Plt Count (150-450) k/uL Chloride (98-107) mmol/L BUN (7-17) mg/dL Creatinine (0.52-1.04) mg/dL Glucose (74-99) mg/dL POC Glucose (mg/dL) 237 H 148 H 176 H (75-99) mg/dL Calcium (8.4-10.2) mg/dL Total Bilirubin (0.2-1.3) mg/dL AST (14-36) U/L Alkaline Phosphatase (38-126) U/L Ammonia (<30) umol/L Total Protein (6.3-8.2) g/dL Albumin (3.5-5.0) g/dL 04/11/19 04/11/19 04/11/19 Range/Units 06:55 06:55 06:55 RBC 3.29 L (3.80-5.40) m/uL MCV 106.2 H (80.0-100.0) fL Plt Count 51 L (150-450) k/uL Chloride 111 H (98-107) mmol/L BUN 20 H (7-17) mg/dL Creatinine 1.24 H (0.52-1.04) mg/dL Glucose 158 H (74-99) mg/dL POC Glucose (mg/dL) (75-99) mg/dL Calcium 7.9 L (8.4-10.2) mg/dL Total Bilirubin 1.7 H (0.2-1.3) mg/dL AST 82 H (14-36) U/L Alkaline Phosphatase 204 H (38-126) U/L Ammonia 34 H (<30) umol/L Total Protein 5.4 L (6.3-8.2) g/dL Albumin 2.3 L (3.5-5.0) g/dL 04/11/19 Range/Units 07:04 RBC (3.80-5.40) m/uL MCV (80.0-100.0) fL Plt Count (150-450) k/uL Chloride (98-107) mmol/L BUN (7-17) mg/dL Creatinine (0.52-1.04) mg/dL Glucose (74-99) mg/dL POC Glucose (mg/dL) 177 H (75-99) mg/dL Calcium (8.4-10.2) mg/dL Total Bilirubin (0.2-1.3) mg/dL AST (14-36) U/L Alkaline Phosphatase (38-126) U/L Ammonia (<30) umol/L Total Protein (6.3-8.2) g/dL Albumin (3.5-5.0) g/dL Assessment and Plan Assessment: #1 elevated troponin level, patient is denying any chest pain or shortness of breath or palpitation, doubt acute coronary syndrome, will check serial enzymes cardiology consult has been requested. 2-D echo completed showing EF of 50-55%. Patient was evaluated by cardiology services abnormality in troponin is chronically patient is not consistent with acute coronary syndrome. #2 mental status changes with confusion. Ammonia level 19. Head CT completed showing essentially stable exam no acute abnormalities evident. Age-related atrophy and probable chronic small vessel ischemia. Neurology services are following. EEG ordered. Carotid Doppler completed showing no Flow-limiting stenosis #3 chronic kidney disease stage III with acute on chronic renal failure. Creatinine improving to 1.20 and bun 19 nephrology services have following #4 underlying history of diabetes mellitus type 2 #5 underlying history of liver cirrhosis, will add refaximin #6 underlying history of hepatocellular carcinoma patient was seen by oncology in the past #7 underlying history of hypertension DVT prophylaxis SCDs due to chronic thrombocytopenia. GI prophylaxis Protonix Physical therapy consulted consulted. Social work services consult possible ECF Patient requesting information about hospice care. Hospice consult has been placed I performed an examination of the patient and discussed their management with the Nurse Practitioner. I have reviewed the Nurse Practitioner's notes and agree with the documented findings and plan of care
--- NOTE | 2019-04-11 11:18 | P.PN ---
Subjective Patient is seen in follow-up for acute kidney injury. Renal function is mildly worse today which is due to diuretics. Creatinine 1.24 today. She is tolerating oral intake. No vomiting. No edema. Vital signs are stable. General: The patient appeared well nourished and normally developed. HEENT: Head exam is unremarkable. Neck is without jugular venous distension. LUNGS: Lungs are clear to auscultation and percussion. Breath sounds decreased. HEART: Rate and Rhythm are regular. First and second heart sounds normal. No murmurs, rubs or gallops. ABDOMEN: Abdominal exam reveals normal bowel sounds. Non-tender and non- distended. No evidence of peritonitis. EXTREMITITES: No clubbing, cyanosis, or edema. Objective - Vital Signs Vital signs: Vital Signs Temp 98.3 F 04/11/19 05:00 Pulse 54 L 04/11/19 08:00 Resp 18 04/11/19 08:00 BP 112/65 04/11/19 05:00 Pulse Ox 99 04/11/19 05:00 Intake & Output 04/10/19 04/11/19 04/11/19 18:59 06:59 18:59 Intake Total 800 1130 Output Total 2 1 Balance 798 1130 -1 Weight 83.915 kg Intake: Oral 800 1130 Output: Stool 2 1 Other: Voiding Method Toilet Toilet Toilet # Voids 1 # Bowel Movements 1 - Labs CBC & Chem 7: 04/11/19 06:55 04/11/19 06:55 Labs: Abnormal Lab Results - Last 24 Hours (Table) 04/10/19 04/10/19 04/11/19 Range/Units 17:31 19:46 06:55 RBC 3.29 L (3.80-5.40) m/uL MCV 106.2 H (80.0-100.0) fL Plt Count 51 L (150-450) k/uL Chloride (98-107) mmol/L BUN (7-17) mg/dL Creatinine (0.52-1.04) mg/dL Glucose (74-99) mg/dL POC Glucose (mg/dL) 148 H 176 H (75-99) mg/dL Calcium (8.4-10.2) mg/dL Total Bilirubin (0.2-1.3) mg/dL AST (14-36) U/L Alkaline Phosphatase (38-126) U/L Ammonia (<30) umol/L Total Protein (6.3-8.2) g/dL Albumin (3.5-5.0) g/dL 04/11/19 04/11/19 04/11/19 Range/Units 06:55 06:55 07:04 RBC (3.80-5.40) m/uL MCV (80.0-100.0) fL Plt Count (150-450) k/uL Chloride 111 H (98-107) mmol/L BUN 20 H (7-17) mg/dL Creatinine 1.24 H (0.52-1.04) mg/dL Glucose 158 H (74-99) mg/dL POC Glucose (mg/dL) 177 H (75-99) mg/dL Calcium 7.9 L (8.4-10.2) mg/dL Total Bilirubin 1.7 H (0.2-1.3) mg/dL AST 82 H (14-36) U/L Alkaline Phosphatase 204 H (38-126) U/L Ammonia 34 H (<30) umol/L Total Protein 5.4 L (6.3-8.2) g/dL Albumin 2.3 L (3.5-5.0) g/dL Assessment and Plan Plan: Assessment: 1. Acute kidney injury mostly prerenal secondary to high output from the ostomy as well as diuretics. Renal function is a little worse today as diuretics were resumed. Creatinine 1.24 today. Baseline creatinine near 1. 2. Metabolic acidosis secondary to acute kidney injury and GI losses. Better. 3. Insulin-dependent diabetes mellitus. 4. History of hepatocellular carcinoma and liver cirrhosis. Plan: Hold Demadex. Encourage oral intake. Avoid nephrotoxins. Repeat electrolytes in the morning.
[2019-04-11 12:07] LABS: Glucose,Whole Blood 179 mg/dL (75-99)
--- NOTE | 2019-04-11 16:01 | EEG ---
ELECTROENCEPHALOGRAM REPORT ELECTROENCEPHALOGRAM REPORT (EEG): DATE OF STUDY: 04/11/2019. PREAMBLE: This is a 73-year-old female with history of hepatic cirrhosis. She has episodes of altered mental status and unresponsiveness. This study is performed to evaluate for any epileptiform activity. CURRENT MEDICATIONS: Demadex, Carafate, rifaximin, pantoprazole, Zofran, morphine, metoprolol, insulin, Bentyl, Klonopin, Wellbutrin, aspirin. EEG FINDINGS: This is a routine 21-channel awake digital EEG recording that was accomplished utilizing the 10-20 international system with bipolar and referential montages. The background consists of well developed, well regulated, moderate amplitude activity in the 6 Hz theta. Background is posterior-dominant and seems to be slightly reactive to eye opening and closing. Photic driving response was not seen. Mild drowsiness was seen, but deeper stages of sleep were not attained. No focal or generalized epileptiform activity was seen. EKG rhythm lead revealed intermittent PVCs. IMPRESSION: This is an abnormal EEG due to background slowing of mild degree. This is suggestive of generalized cerebral dysfunction, as can be seen with toxic metabolic encephalopathies or related to medication effect. No epileptiform activity was seen. EKG rhythm lead revealed mild arrhythmia with PVCs. Clinical correlation is recommended. MMODL / IJN: [id number] / MTDYvette
[2019-04-11 17:21] LABS: Glucose,Whole Blood 128 mg/dL (75-99)
[2019-04-11 20:08] LABS: Glucose,Whole Blood 164 mg/dL (75-99)
--- NOTE | 2019-04-11 21:34 | P.PN ---
Subjective Progress Note Date: 04/11/19 Patient denies any new neurological complaints. States more alert and awake. No new concerns. Objective - Vital Signs Vital signs: Vital Signs Temp 98.4 F 04/11/19 20:33 Pulse 56 L 04/11/19 20:33 Resp 18 04/11/19 20:33 BP 95/49 04/11/19 20:33 Pulse Ox 100 04/11/19 20:33 Intake & Output 04/11/19 04/11/19 04/12/19 06:59 18:59 06:59 Intake Total 1130 500 500 Output Total 2 Balance 1130 498 500 Intake: Oral 1130 500 500 Output: Stool 2 Other: Voiding Method Toilet Toilet Toilet # Voids 1 1 # Bowel Movements 1 4 1 - Exam Patient more alert and awake. Examination nonfocal. Fairly well oriented. - Labs CBC & Chem 7: 04/11/19 06:55 04/11/19 06:55 Labs: Abnormal Lab Results - Last 24 Hours (Table) 04/11/19 04/11/19 04/11/19 Range/Units 06:55 06:55 06:55 RBC 3.29 L (3.80-5.40) m/uL MCV 106.2 H (80.0-100.0) fL Plt Count 51 L (150-450) k/uL Chloride 111 H (98-107) mmol/L BUN 20 H (7-17) mg/dL Creatinine 1.24 H (0.52-1.04) mg/dL Glucose 158 H (74-99) mg/dL POC Glucose (mg/dL) (75-99) mg/dL Calcium 7.9 L (8.4-10.2) mg/dL Total Bilirubin 1.7 H (0.2-1.3) mg/dL AST 82 H (14-36) U/L Alkaline Phosphatase 204 H (38-126) U/L Ammonia 34 H (<30) umol/L Total Protein 5.4 L (6.3-8.2) g/dL Albumin 2.3 L (3.5-5.0) g/dL 04/11/19 04/11/19 04/11/19 Range/Units 07:04 12:06 17:19 RBC (3.80-5.40) m/uL MCV (80.0-100.0) fL Plt Count (150-450) k/uL Chloride (98-107) mmol/L BUN (7-17) mg/dL Creatinine (0.52-1.04) mg/dL Glucose (74-99) mg/dL POC Glucose (mg/dL) 177 H 179 H 128 H (75-99) mg/dL Calcium (8.4-10.2) mg/dL Total Bilirubin (0.2-1.3) mg/dL AST (14-36) U/L Alkaline Phosphatase (38-126) U/L Ammonia (<30) umol/L Total Protein (6.3-8.2) g/dL Albumin (3.5-5.0) g/dL 04/11/19 Range/Units 20:07 RBC (3.80-5.40) m/uL MCV (80.0-100.0) fL Plt Count (150-450) k/uL Chloride (98-107) mmol/L BUN (7-17) mg/dL Creatinine (0.52-1.04) mg/dL Glucose (74-99) mg/dL POC Glucose (mg/dL) 164 H (75-99) mg/dL Calcium (8.4-10.2) mg/dL Total Bilirubin (0.2-1.3) mg/dL AST (14-36) U/L Alkaline Phosphatase (38-126) U/L Ammonia (<30) umol/L Total Protein (6.3-8.2) g/dL Albumin (3.5-5.0) g/dL Assessment and Plan Assessment: * Altered mental status, possible due to metabolic/hepatic encephalopathy. Patient had acute renal injury and mildly elevated ammonia, likely the cause of altered mental status. Her ammonia level is now normal 19. * Acute kidney injury secondary to volume depletion. * Diabetes, controlled. * History of hepatocellular carcinoma and hepatic cirrhosis. Plan: * Patient's mentation has much improved. She is almost back to normal. * EEG showed mild background slowing, consistent with encephalopathy. No epileptiform activity was seen. * Carotid Doppler negative. * Your medical management. * Continue lactulose. * No other neurological workup indicated. Will sign off. Please reconsult neurology if any concerns.
[2019-04-12 06:45] LABS: Glucose,Whole Blood 132 mg/dL (75-99)
[2019-04-12] MEDS: INSULIN NPH 300 UNIT/3 ML VIAL SQ SCH ×2 (07:40→17:58)
[2019-04-12] MEDS: INSULIN REGULAR 100 UNIT/ML VIAL SQ SCH ×3 (07:40→17:59)
[2019-04-12 07:53] LABS: Basophils % (A) 1 %; Eosinophils # (A) 0.3 k/uL (0-0.7); Eosinophils % (A) 6 %; HCT 34.8 % (34.0-46.0); HGB 11.4 gm/dL (11.4-16.0); Lymphocytes % (A) 23 %; MCH 34.8 pg (25.0-35.0); MCHC 32.7 g/dL (31.0-37.0); MCV 106.4 fL (80.0-100.0); Macrocytosis Moderate; Mean Platelet Volume 9.9; Monocytes # (A) 0.4 k/uL (0-1.0); Monocytes % (A) 8 %; Neutrophils # (A) 2.6 k/uL (1.3-7.7); Neutrophils % (A) 59 %; RBC 3.27 m/uL (3.80-5.40); RDW 15.2 % (11.5-15.5); WBC 4.4 k/uL (3.8-10.6)
[2019-04-12 07:57] LABS: Platelet Count 49 k/uL (150-450)
[2019-04-12 08:23] LABS: Albumin 2.2 g/dL (3.5-5.0); Calcium 7.9 mg/dL (8.4-10.2); Magnesium 1.5 mg/dL (1.6-2.3); Potassium 3.6 mmol/L (3.5-5.1); Total Bilirubin 1.5 mg/dL (0.2-1.3); Total Protein 5.2 g/dL (6.3-8.2)
[2019-04-12] MEDS: PANTOPRAZOLE 40 MG TABLET PO SCH (09:00)
[2019-04-12] MEDS: buPROPion SR 150 MG TABLET.ER PO SCH (09:00)
[2019-04-12] MEDS: ASPIRIN 325 MG TAB PO SCH (09:00)
[2019-04-12] MEDS: FERROUS SULFATE 325 MG TAB PO SCH ×2 (09:01→21:22)
[2019-04-12] MEDS: CHOLECALCIFEROL 1,000 UNIT TAB PO SCH (09:01)
[2019-04-12] MEDS: DICYCLOMINE 10 MG CAP PO SCH ×3 (09:01→21:23)
[2019-04-12] MEDS: LACTULOSE 20 GM/30 ML CUP PO SCH ×3 (09:02→21:22)
[2019-04-12] MEDS: MORPHINE SULFATE ER 15 MG TABLET PO SCH ×2 (09:03→21:22)
[2019-04-12] MEDS: METOPROLOL TARTRATE 12.5 MG TAB PO SCH ×2 (09:03→21:23)
[2019-04-12] MEDS: MAGNESIUM OXIDE 400 MG TAB PO SCH (09:03)
[2019-04-12] MEDS: RIFAXIMIN 550 MG TABLET PO SCH ×2 (09:06→21:23)
[2019-04-12] MEDS: POTASSIUM CHLORIDE ER 20 MEQ TAB.ER PO SCH (09:06)
[2019-04-12] MEDS: SUCRALFATE 1 GM TAB PO SCH ×4 (09:06→21:24)
[2019-04-12] MEDS ORDERED: POTASSIUM CHLORIDE ER 20 MEQ TAB.ER PO STA (10:49)
--- NOTE | 2019-04-12 10:50 | P.PN ---
Subjective Patient is seen in follow-up for acute kidney injury. Renal function is better. Creatinine 1.12 today. She is tolerating oral intake. No vomiting. No edema. Vital signs are stable. General: The patient appeared well nourished and normally developed. HEENT: Head exam is unremarkable. Neck is without jugular venous distension. LUNGS: Lungs are clear to auscultation and percussion. Breath sounds decreased. HEART: Rate and Rhythm are regular. First and second heart sounds normal. No murmurs, rubs or gallops. ABDOMEN: Abdominal exam reveals normal bowel sounds. Non-tender and non- distended. No evidence of peritonitis. EXTREMITITES: No clubbing, cyanosis, or edema. Objective - Vital Signs Vital signs: Vital Signs Temp 98.1 F 04/12/19 05:00 Pulse 55 L 04/12/19 05:00 Resp 16 04/12/19 05:00 BP 92/52 04/12/19 09:07 Pulse Ox 98 04/12/19 05:00 Intake & Output 04/11/19 04/12/19 04/12/19 18:59 06:59 18:59 Intake Total 500 500 Output Total 2 Balance 498 500 Intake: Oral 500 500 Output: Stool 2 Other: Voiding Method Toilet Toilet # Voids 2 # Bowel Movements 4 2 - Labs CBC & Chem 7: 04/12/19 07:01 04/12/19 07:01 Labs: Abnormal Lab Results - Last 24 Hours (Table) 04/11/19 04/11/19 04/11/19 Range/Units 12:06 17:19 20:07 RBC (3.80-5.40) m/uL MCV (80.0-100.0) fL Plt Count (150-450) k/uL Chloride (98-107) mmol/L BUN (7-17) mg/dL Creatinine (0.52-1.04) mg/dL Glucose (74-99) mg/dL POC Glucose (mg/dL) 179 H 128 H 164 H (75-99) mg/dL Calcium (8.4-10.2) mg/dL Magnesium (1.6-2.3) mg/dL Total Bilirubin (0.2-1.3) mg/dL AST (14-36) U/L ALT (9-52) U/L Alkaline Phosphatase (38-126) U/L Total Protein (6.3-8.2) g/dL Albumin (3.5-5.0) g/dL 04/12/19 04/12/19 04/12/19 Range/Units 06:44 07:01 07:01 RBC 3.27 L (3.80-5.40) m/uL MCV 106.4 H (80.0-100.0) fL Plt Count 49 L (150-450) k/uL Chloride 108 H (98-107) mmol/L BUN 19 H (7-17) mg/dL Creatinine 1.12 H (0.52-1.04) mg/dL Glucose 132 H (74-99) mg/dL POC Glucose (mg/dL) 132 H (75-99) mg/dL Calcium 7.9 L (8.4-10.2) mg/dL Magnesium 1.5 L (1.6-2.3) mg/dL Total Bilirubin 1.5 H (0.2-1.3) mg/dL AST 105 H (14-36) U/L ALT 77 H (9-52) U/L Alkaline Phosphatase 220 H (38-126) U/L Total Protein 5.2 L (6.3-8.2) g/dL Albumin 2.2 L (3.5-5.0) g/dL Assessment and Plan Plan: Assessment: 1. Acute kidney injury mostly prerenal secondary to high output from the ostomy as well as diuretics. Renal function is improved. Creatinine 1.12 today. Baseline creatinine near 1. 2. Metabolic acidosis secondary to acute kidney injury and GI losses. Better. 3. Insulin-dependent diabetes mellitus. 4. History of hepatocellular carcinoma and liver cirrhosis. 5. Hypomagnesemia secondary to GI losses and diuretics. 6. Hypokalemia secondary to diuretics. Plan: Hold Demadex - can resume every other day upon discharge. Encourage oral intake. Avoid nephrotoxins. Replace magnesium. 2 g IV today. Replace potassium. 40 mEq today. Repeat electrolytes in the morning.
[2019-04-12 11:34] LABS: Glucose,Whole Blood 202 mg/dL (75-99)
[2019-04-12] MEDS: MAGNESIUM SULFATE-D5W PMX 1 GM in DEXTROSE/WATER 1 100ML.BAG IVPB SCH ×2 (12:27→13:58)
--- NOTE | 2019-04-12 13:46 | P.PN ---
Subjective Progress Note Date: 04/12/19 Charlene Keenan, is a 73-year-old female with known history of liver cirrhosis and hepatocellular carcinoma who presented to [facility] emergency room due to abnormal blood test that her primary care physician's office which revealed elevated troponin level. Patient was evaluated in the emergency room and was admitted to medical floor, nurse on the floor noticed that patient mental status is declining with more confusion, labs on presentation also revealed evidence of elevated troponin level, elevated BUN and creatinine, mildly elevated ammonia level at 32. Patient has history of recurrent admissions to [facility] due to her multiple medical problems, she has known history of coronary artery disease, diabetes mellitus, liver cirrhosis, hepatocellular carcinoma, hy pertension, chronic renal insufficiency, anemia, and history of diverticular disease with previous ileostomy placement. On 04/09/2019 patient was seen and examined on the medical floor she is alert s lightly confused in no apparent distress there is no fever or chills no headache or dizziness no chest pain no shortness of breath no cough no nausea or vomiting no abdominal pain, she states her output through her ileostomy is more than usual, there is no burning was urination no frequency or urgency and no hematuria On 04/10/2019 patient is alert and oriented 3. Patient's confusion slightly i mproved. Creatinine improving to 1.08. Neurology services are following. Patient denies chest pain or shortness breath. Patient denies nausea vomiting or diarrhea. Patient denies any urinary burning or frequency On 04/11/2019 patient is alert and oriented 3. Patient has no confusion. Ammonia level 34. Patient on lactulose. Cardiology an neurology services are following. EEG has been ordered per neurology. Patient denies chest pain or shortness of breath. Patient denies nausea vomiting or diarrhea. Patient denies any urinary burning or frequency On 04/12/2019 patient is alert and oriented 3. Ammonia level 17. Patient having temp of 101.1. Chest x-ray, UA and influenza ordered. Patient denies any chest pain or shortness of breath. Patient denies any nausea vomiting or diarrhea. Patient denies any urinary burning or frequency. Objective - Vital Signs Vital signs: Vital Signs Temp 98.3 F 04/12/19 13:39 Pulse 56 L 04/12/19 12:02 Resp 17 04/12/19 12:02 BP 114/55 04/12/19 12:02 Pulse Ox 100 04/12/19 12:02 Intake & Output 04/11/19 04/12/19 04/12/19 18:59 06:59 18:59 Intake Total 500 500 Output Total 2 Balance 498 500 Intake: Oral 500 500 Output: Stool 2 Other: Voiding Method Toilet Toilet Toilet # Voids 2 # Bowel Movements 4 2 - Exam In general patient is alert slightly confused in no apparent distress HEENT sclera was mild icterus otherwise normocephalic and atraumatic Neck is supple no JVD no goiter no lymphadenopathy Chest exam reveals a few scattered crackles no wheezing Cardiac exam reveals regular heart sounds no gallops no murmurs Abdomen is soft nontender no organomegaly with normal bowel sounds Extremity exam reveals no edema no cyanosis or clubbing Neurological examination reveals confusion otherwise no focal neurological deficit. Alert and Oriented 3 - Labs CBC & Chem 7: 04/12/19 07:01 04/12/19 07:01 Labs: Abnormal Lab Results - Last 24 Hours (Table) 04/11/19 04/11/19 04/12/19 Range/Units 17:19 20:07 06:44 RBC (3.80-5.40) m/uL MCV (80.0-100.0) fL Plt Count (150-450) k/uL Chloride (98-107) mmol/L BUN (7-17) mg/dL Creatinine (0.52-1.04) mg/dL Glucose (74-99) mg/dL POC Glucose (mg/dL) 128 H 164 H 132 H (75-99) mg/dL Calcium (8.4-10.2) mg/dL Magnesium (1.6-2.3) mg/dL Total Bilirubin (0.2-1.3) mg/dL AST (14-36) U/L ALT (9-52) U/L Alkaline Phosphatase (38-126) U/L Total Protein (6.3-8.2) g/dL Albumin (3.5-5.0) g/dL 04/12/19 04/12/19 04/12/19 Range/Units 07:01 07:01 11:32 RBC 3.27 L (3.80-5.40) m/uL MCV 106.4 H (80.0-100.0) fL Plt Count 49 L (150-450) k/uL Chloride 108 H (98-107) mmol/L BUN 19 H (7-17) mg/dL Creatinine 1.12 H (0.52-1.04) mg/dL Glucose 132 H (74-99) mg/dL POC Glucose (mg/dL) 202 H (75-99) mg/dL Calcium 7.9 L (8.4-10.2) mg/dL Magnesium 1.5 L (1.6-2.3) mg/dL Total Bilirubin 1.5 H (0.2-1.3) mg/dL AST 105 H (14-36) U/L ALT 77 H (9-52) U/L Alkaline Phosphatase 220 H (38-126) U/L Total Protein 5.2 L (6.3-8.2) g/dL Albumin 2.2 L (3.5-5.0) g/dL Assessment and Plan Assessment: #1 elevated troponin level, patient is denying any chest pain or shortness of breath or palpitation, doubt acute coronary syndrome, will check serial enzymes cardiology consult has been requested. 2-D echo completed showing EF of 50-55%. Patient was evaluated by cardiology services abnormality in troponin is chronically patient is not consistent with acute coronary syndrome. #2 mental status changes with confusion. Ammonia level 19. Head CT completed showing essentially stable exam no acute abnormalities evident. Age-related atrophy and probable chronic small vessel ischemia. Neurology services are following. EEG ordered. Carotid Doppler completed showing no Flow-limiting stenosis. EKG completed showing mild background slowing consistent with encephalopathy no epileptiform activity was seen. Per neurology no other neurological workup indicated at this time #3 chronic kidney disease stage III with acute on chronic renal failure. Creatinine improving to 1.20 and bun 19 nephrology services have following #4 underlying history of diabetes mellitus type 2 #5 underlying history of liver cirrhosis, will add refaximin #6 underlying history of hepatocellular carcinoma patient was seen by oncology in the past #7 underlying history of hypertension #8. Febrile illness. Patient having temp of 101.1. UA culture, chest x-ray and implants ordered DVT prophylaxis SCDs due to chronic thrombocytopenia. GI prophylaxis Protonix Physical therapy consulted consulted. Social work services consult possible ECF Patient requesting information about hospice care. Hospice consult has been placed I performed an examination of the patient and discussed their management with ricky yeh Nurse Practitioner. I have reviewed the Nurse Practitioner's notes and agree with the documented findings and plan of care
--- NOTE | 2019-04-12 14:53 | XR ---
EXAMINATION TYPE: XR chest 2V DATE OF EXAM: 04/12/2019 COMPARISON: 04/07/2019 HISTORY: Shortness of breath TECHNIQUE: Frontal and lateral views of the chest are obtained. FINDINGS: Scattered senescent parenchymal changes noted. Hyperinflation compatible with COPD. No evidence for infiltrate. No evidence for atelectasis. Heart size is stable. Mediastinal structures are stable and grossly unremarkable. No evidence for hilar prominence. Degenerative changes dorsal spine. IMPRESSION: 1. No evidence for acute pulmonary disease.
[2019-04-12 16:26] LABS: Appearance,Urine Clear (Clear); Bilirubin,Urine Negative (Negative); Blood,Urine Negative (Negative); Color,Urine Yellow; Glucose,Urine (UA) Negative (Negative); Ketones,Urine Negative (Negative); Leukocyte Esterase,Urine Negative (Negative); Nitrite,Urine Negative (Negative); PH, Urine 5.5 (5.0-8.0); Protein,Urine Negative (Negative); Specific Gravity,Urine 1.018 (1.001-1.035); Urobilinogen,Urine <2.0 mg/dL (<2.0)
[2019-04-12 17:12] LABS: Glucose,Whole Blood 198 mg/dL (75-99)
[2019-04-12 20:07] LABS: Glucose,Whole Blood 316 mg/dL (75-99)
[2019-04-13 01:51] LABS: Glucose,Whole Blood 236 mg/dL (75-99)
[2019-04-13 06:57] LABS: Glucose,Whole Blood 171 mg/dL (75-99)
[2019-04-13] MEDS: POTASSIUM CHLORIDE ER 20 MEQ TAB.ER PO SCH (07:55)
[2019-04-13] MEDS: CHOLECALCIFEROL 1,000 UNIT TAB PO SCH (07:55)
[2019-04-13] MEDS: METOPROLOL TARTRATE 12.5 MG TAB PO SCH ×2 (07:55→21:13)
[2019-04-13] MEDS: PANTOPRAZOLE 40 MG TABLET PO SCH (07:56)
[2019-04-13] MEDS: FERROUS SULFATE 325 MG TAB PO SCH ×2 (07:56→21:13)
[2019-04-13] MEDS: buPROPion SR 150 MG TABLET.ER PO SCH (07:56)
[2019-04-13] MEDS: MAGNESIUM OXIDE 400 MG TAB PO SCH (07:56)
[2019-04-13] MEDS: ASPIRIN 325 MG TAB PO SCH (07:56)
[2019-04-13] MEDS: DICYCLOMINE 10 MG CAP PO SCH ×3 (07:57→21:13)
[2019-04-13] MEDS: LACTULOSE 20 GM/30 ML CUP PO SCH ×3 (07:57→21:13)
[2019-04-13] MEDS: RIFAXIMIN 550 MG TABLET PO SCH ×2 (07:59→21:13)
[2019-04-13] MEDS: MORPHINE SULFATE ER 15 MG TABLET PO SCH ×2 (07:59→21:13)
[2019-04-13] MEDS: SUCRALFATE 1 GM TAB PO SCH ×4 (07:59→21:13)
[2019-04-13] MEDS: INSULIN REGULAR 100 UNIT/ML VIAL SQ SCH ×3 (08:00→18:03)
[2019-04-13] MEDS: INSULIN NPH 300 UNIT/3 ML VIAL SQ SCH ×2 (08:58→18:03)
--- NOTE | 2019-04-13 09:17 | P.PN ---
Subjective Patient is seen in follow-up for acute kidney injury. Renal function is better. Creatinine 1.12 as of yesterday. She is tolerating oral intake. No vomiting. No edema. Vital signs are stable. General: The patient appeared well nourished and normally developed. HEENT: Head exam is unremarkable. Neck is without jugular venous distension. LUNGS: Lungs are clear to auscultation and percussion. Breath sounds decreased. HEART: Rate and Rhythm are regular. First and second heart sounds normal. No murmurs, rubs or gallops. ABDOMEN: Abdominal exam reveals normal bowel sounds. Non-tender and non- distended. No evidence of peritonitis. EXTREMITITES: No clubbing, cyanosis, or edema. Objective - Vital Signs Vital signs: Vital Signs Temp 99 F 04/13/19 04:50 Pulse 62 04/13/19 04:50 Resp 18 04/13/19 04:50 BP 137/70 04/13/19 04:50 Pulse Ox 100 04/13/19 04:50 Intake & Output 04/12/19 04/13/19 04/13/19 18:59 06:59 18:59 Intake Total 200 Output Total 1 Balance 200 -1 Intake: Intake, IV Titration 200 Amount Magnesium Sulfate-D5w Pmx 200 1 gm In Dextrose/Water 1 100ml.bag @ 100 mls/hr IVPB Q1H [facility] Rx#: [id number] Output: Stool 1 Other: Voiding Method Toilet Toilet # Voids 2 3 # Bowel Movements 2 3 - Labs CBC & Chem 7: 04/12/19 07:01 04/12/19 07:01 Labs: Abnormal Lab Results - Last 24 Hours (Table) 04/12/19 04/12/19 04/12/19 Range/Units 11:32 17:11 19:46 POC Glucose (mg/dL) 202 H 198 H (75-99) mg/dL Troponin I 0.120 H* (0.000-0.034) ng/mL 04/12/19 04/13/19 04/13/19 Range/Units 20:05 01:48 03:12 POC Glucose (mg/dL) 316 H 236 H (75-99) mg/dL Troponin I 0.108 H* (0.000-0.034) ng/mL 04/13/19 Range/Units 06:56 POC Glucose (mg/dL) 171 H (75-99) mg/dL Troponin I (0.000-0.034) ng/mL Microbiology - Last 24 Hours (Table) 04/12/19 16:12 Urine Culture - Preliminary Urine,Voided Assessment and Plan Plan: Assessment: 1. Acute kidney injury mostly prerenal secondary to high output from the ostomy as well as diuretics. Renal function is improved. Creatinine 1.12 as of yesterday. Baseline creatinine near 1. 2. Metabolic acidosis secondary to acute kidney injury and GI losses. Better. 3. Insulin-dependent diabetes mellitus. 4. History of hepatocellular carcinoma and liver cirrhosis. 5. Hypomagnesemia secondary to GI losses and diuretics. Status post replacement. 6. Hypokalemia secondary to diuretics. Status post replacement. Plan: Hold Demadex - can resume every other day upon discharge. Encourage oral intake. Avoid nephrotoxins. Stable to be discharged home from nephrology standpoint. Will follow up ou tpatient in the next 2 weeks.
[2019-04-13] MEDS: ONDANSETRON 4 MG/2 ML VIAL IVP PRN (09:42)
[2019-04-13 10:02] LABS: Basophils % (A) 0 %; Eosinophils # (A) 0.2 k/uL (0-0.7); Eosinophils % (A) 4 %; HCT 32.9 % (34.0-46.0); HGB 10.8 gm/dL (11.4-16.0); Lymphocytes # (A) 0.9 k/uL (1.0-4.8); Lymphocytes % (A) 15 %; MCH 35.2 pg (25.0-35.0); MCHC 32.7 g/dL (31.0-37.0); MCV 107.6 fL (80.0-100.0); Macrocytosis Moderate; Mean Platelet Volume 9.3; Monocytes # (A) 0.5 k/uL (0-1.0); Monocytes % (A) 8 %; Neutrophils # (A) 4.2 k/uL (1.3-7.7); Neutrophils % (A) 70 %; RBC 3.06 m/uL (3.80-5.40); RDW 14.6 % (11.5-15.5)
[2019-04-13 10:10] LABS: Platelet Count 51 k/uL (150-450)
[2019-04-13 10:22] LABS: Albumin 2.3 g/dL (3.5-5.0); Calcium 7.9 mg/dL (8.4-10.2); Magnesium 2.1 mg/dL (1.6-2.3); Potassium 4.7 mmol/L (3.5-5.1); Total Bilirubin 2.3 mg/dL (0.2-1.3); Total Protein 5.3 g/dL (6.3-8.2)
[2019-04-13] MEDS ORDERED: IOPAMIDOL-300 CONTRAST 30 ML VIAL (ORAL USE) PO PRN (10:42)
--- NOTE | 2019-04-13 10:52 | P.PN ---
Subjective Progress Note Date: 04/13/19 Charlene Keenan, is a 73-year-old female with known history of liver cirrhosis and hepatocellular carcinoma who presented to [facility] emergency room due to abnormal blood test that her primary care physician's office which revealed elevated troponin level. Patient was evaluated in the emergency room and was admitted to medical floor, nurse on the floor noticed that patient mental status is declining with more confusion, labs on presentation also revealed evidence of elevated troponin level, elevated BUN and creatinine, mildly elevated ammonia level at 32. Patient has history of recurrent admissions to [facility] due to her multiple medical problems, she has known history of coronary artery disease, diabetes mellitus, liver cirrhosis, hepatocellular carcinoma, hy pertension, chronic renal insufficiency, anemia, and history of diverticular disease with previous ileostomy placement. On 04/09/2019 patient was seen and examined on the medical floor she is alert s lightly confused in no apparent distress there is no fever or chills no headache or dizziness no chest pain no shortness of breath no cough no nausea or vomiting no abdominal pain, she states her output through her ileostomy is more than usual, there is no burning was urination no frequency or urgency and no hematuria On 04/10/2019 patient is alert and oriented 3. Patient's confusion slightly i mproved. Creatinine improving to 1.08. Neurology services are following. Patient denies chest pain or shortness breath. Patient denies nausea vomiting or diarrhea. Patient denies any urinary burning or frequency On 04/11/2019 patient is alert and oriented 3. Patient has no confusion. Ammonia level 34. Patient on lactulose. Cardiology an neurology services are following. EEG has been ordered per neurology. Patient denies chest pain or shortness of breath. Patient denies nausea vomiting or diarrhea. Patient denies any urinary burning or frequency On 04/12/2019 patient is alert and oriented 3. Ammonia level 17. Patient having temp of 101.1. Chest x-ray, UA and influenza ordered. Patient denies any chest pain or shortness of breath. Patient denies any nausea vomiting or diarrhea. Patient denies any urinary burning or frequency. On 04/13/2019 patient's alert and oriented 3. Patient complaining of increased nausea and vomiting. Patient also had episode of chest pain throughout. cardiology services will be consulted. CT of abdomen with oral contrast only will be ordered along with infectious disease consult. At this time patient is complaining of nausea here he patient denies chest pain. Patient denies urinary burning or frequency. Objective - Vital Signs Vital signs: Vital Signs Temp 99 F 04/13/19 04:50 Pulse 62 04/13/19 04:50 Resp 18 04/13/19 04:50 BP 137/70 04/13/19 04:50 Pulse Ox 100 04/13/19 04:50 Intake & Output 04/12/19 04/13/19 04/13/19 18:59 06:59 18:59 Intake Total 200 720 Output Total 1 Balance 200 -1 720 Intake: Intake, IV Titration 200 Amount Magnesium Sulfate-D5w Pmx 200 1 gm In Dextrose/Water 1 100ml.bag @ 100 mls/hr IVPB Q1H [facility] Rx#: [id number] Oral 720 Output: Stool 1 Other: Voiding Method Toilet Toilet # Voids 2 3 # Bowel Movements 2 3 - Exam In general patient is alert slightly confused in no apparent distress HEENT sclera was mild icterus otherwise normocephalic and atraumatic Neck is supple no JVD no goiter no lymphadenopathy Chest exam reveals a few scattered crackles no wheezing Cardiac exam reveals regular heart sounds no gallops no murmurs Abdomen is soft nontender no organomegaly with normal bowel sounds Extremity exam reveals no edema no cyanosis or clubbing Neurological examination reveals confusion otherwise no focal neurological deficit. Alert and Oriented 3 - Labs CBC & Chem 7: 04/13/19 09:34 04/12/19 07:01 Labs: Abnormal Lab Results - Last 24 Hours (Table) 04/12/19 04/12/19 04/12/19 Range/Units 11:32 17:11 19:46 RBC (3.80-5.40) m/uL Hgb (11.4-16.0) gm/dL Hct (34.0-46.0) % MCV (80.0-100.0) fL MCH (25.0-35.0) pg Plt Count (150-450) k/uL Lymphocytes # (1.0-4.8) k/uL POC Glucose (mg/dL) 202 H 198 H (75-99) mg/dL Troponin I 0.120 H* (0.000-0.034) ng/mL 04/12/19 04/13/19 04/13/19 Range/Units 20:05 01:48 03:12 RBC (3.80-5.40) m/uL Hgb (11.4-16.0) gm/dL Hct (34.0-46.0) % MCV (80.0-100.0) fL MCH (25.0-35.0) pg Plt Count (150-450) k/uL Lymphocytes # (1.0-4.8) k/uL POC Glucose (mg/dL) 316 H 236 H (75-99) mg/dL Troponin I 0.108 H* (0.000-0.034) ng/mL 04/13/19 04/13/19 Range/Units 06:56 09:34 RBC 3.06 L (3.80-5.40) m/uL Hgb 10.8 L (11.4-16.0) gm/dL Hct 32.9 L (34.0-46.0) % MCV 107.6 H (80.0-100.0) fL MCH 35.2 H (25.0-35.0) pg Plt Count 51 L (150-450) k/uL Lymphocytes # 0.9 L (1.0-4.8) k/uL POC Glucose (mg/dL) 171 H (75-99) mg/dL Troponin I (0.000-0.034) ng/mL Microbiology - Last 24 Hours (Table) 04/12/19 16:12 Urine Culture - Preliminary Urine,Voided Assessment and Plan Assessment: #1 elevated troponin level, patient is denying any chest pain or shortness of breath or palpitation, doubt acute coronary syndrome, will check serial enzymes cardiology consult has been requested. 2-D echo completed showing EF of 50-55%. 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 #2 mental status changes with confusion. Ammonia level 19. Head CT completed showing essentially stable exam no acute abnormalities evident. Age-related atrophy and probable chronic small vessel ischemia. Neurology services are fo llowing. EEG ordered. Carotid Doppler completed showing no Flow-limiting stenosis. EKG completed showing mild background slowing consistent with encephalopathy no epileptiform activity was seen. Per neurology no other neurological workup indicated at this time #3 chronic kidney disease stage III with acute on chronic renal failure. Creatinine improving to 1.20 and bun 19. Per nephrology hold Demadex and can resume every other day upon discharge #4 underlying history of diabetes mellitus type 2 #5 underlying history of liver cirrhosis, will add refaximin #6 underlying history of hepatocellular carcinoma patient was seen by oncology in the past #7 underlying history of hypertension #8. Febrile illness. Patient having temp of 101.1. UA negative. Chest x-ray no evidence for acute pulmonary disease. Dr. Esparza will be consulted #9 nausea and vomiting. Amylase and lipase levels ordered. CT of abdomen with oral contrast only ordered. Sections disease consulted #10. Chest pain. Troponins 0.120 0.108. Cardiology services were consulted DVT prophylaxis SCDs due to chronic thrombocytopenia. GI prophylaxis Protonix Physical therapy consulted consulted. Social work services consult possible ECF I performed an examination of the patient and discussed their management with the Nurse Practitioner. I have reviewed the Nurse Practitioner's notes and agree with the documented findings and plan of care
[2019-04-13 11:11] LABS: Glucose,Whole Blood 153 mg/dL (75-99)
--- NOTE | 2019-04-13 12:37 | CT ---
EXAMINATION TYPE: CT abdomen pelvis wo con DATE OF EXAM: 04/13/2019 COMPARISON: 12/30/2018 HISTORY: Nausea, vomiting, fever, generalized pain. CT DLP: 1130 mGycm Automated exposure control for dose reduction was used. TECHNIQUE: Helical acquisition of images was performed from the lung bases through the pelvis. FINDINGS: LUNG BASES: Solitary nonenlarged epiphrenic lymph node is present on image 12 measuring 5 mm. LIVER/GB: There is a heterogenous centrally necrotic 5.4 x 5.3 x 5.0 cm hepatic mass originating from segment 7 extending inferiorly to about the intrahepatic inferior vena cava and superior margin of t he right kidney. This also displaces the right adrenal gland medially. There is a cirrhotic morpholog y of the liver. Additional hepatic lesion bridges segment 8 and 4A with capsular retraction as this i s in a subcapsular location. This is ill-defined and measures approximately 4.0 x 2.2 cm on series 3 image 22. This has demonstrated interval growth in comparison to the exam of 10/22/2018 where this was described. Another questionable ill-defined hepatic lesion measuresr approximately 9 mm on series 3 image 42. The gallbladder surgically absent. Evaluation of the venous system for tumor thrombus is no ndiagnostic without contrast. There is perihepatic and perisplenic ascites extending into the low pel vis, mild volume. Splenic varices, gastrohepatic varices, and very small esophageal varices are seen. There is also a splenorenal shunt and recanalization of the umbilical vein. Mesenteric varices are a lso seen with diffuse mesenteric congestion excluding the retroperitoneum. PANCREAS: No significant abnormality is seen. SPLEEN: No significant abnormality is seen. ADRENALS: No significant abnormality is seen. KIDNEYS: No nephrolithiasis nor hydronephrosis. FREE AIR: No free air is visualized ADENOPATHY: No greater than 1 cm short axis lymph nodes are noted in the abdomen or pelvis. REPRODUCTIVE ORGANS: Uterus appears surgically absent. URINARY BLADDER: Urinary bladder probable diverticulum is noted to the left. OSSEOUS STRUCTURES: Multilevel moderate degenerative changes of the spine with multilevel mild malal ignment is likely on a degenerative basis. Moderate degenerative changes of the hips are also noted. BOWEL: There is prominent retroperitoneal fat/retroperitoneal lipomatosis that elevates the bowel an teriorly. Scattered air-fluid levels within the small bowel suggest mild ileus however no dilated lar ge or small bowel is seen to represent obstruction. Right lower quadrant hernia containing loops of s mall bowel has a neck measuring 4.1 cm. This is a parastomal hernia. Stomach has thickened gastric ru gal folds throughout there may be reactive to the adjacent ascites, related to gastritis, or neoplasm . Anastomotic site is seen of the sigmoid colon. OTHER: Moderate atherosclerosis of the abdominal aorta and its branches. Diffuse muscular atrophy is present. IMPRESSION: 1. INTERVAL ENLARGEMENT OF THE HEPATIC MASSES DESCRIBED ON THE MOST REMOTE EXAM AVAILABLE OF 8. THESE SHOULD BE CONSIDERED HEPATOCELLULAR CARCINOMA UNTIL PROVEN OTHERWISE A BACKGROUND OF CIRRHOS IS. SMALL VOLUME RECURRENT ABDOMINOPELVIC ASCITES, DIFFUSE MESENTERIC CONGESTION AND EDEMA, SPLENOREN AL SHUNT, SPLENIC VARICES, GASTROHEPATIC LIGAMENT VARICES, RECANALIZATION OF THE UMBILICAL VEIN, AND SMALL ESOPHAGEAL VARICES ARE REDEMONSTRATED. CORRELATION WITH AFP IS RECOMMENDED. IF THERE IS NEED FO R TISSUE DIAGNOSIS PERCUTANEOUS BIOPSY COULD BE PERFORMED. HOWEVER, MRI WITH DIRECT CLASSIFICATION WO ULD BE DIAGNOSTIC OF HEPATOCELLULAR CARCINOMA. 2. RIGHT PARASTOMAL HERNIA CONTAINING NUMEROUS LOOPS OF SMALL BOWEL THAT ARE NONDILATED ALTHOUGH SMAL L BOWEL ILEUS IS SEEN. 3. DIFFUSELY THICKENED GASTRIC RUGAL FOLDS THAT MAY REPRESENT REACTIVE CHANGE FROM THE ADJACENT ASCIT ES/HYPOPROTEINEMIA, GASTRITIS, OR NEOPLASM.
[2019-04-13] MEDS: SODIUM BICARBONATE TAB 650 MG TAB PO SCH ×2 (13:17→21:13)
[2019-04-13 16:58] LABS: Glucose,Whole Blood 225 mg/dL (75-99)
[2019-04-13 20:59] LABS: Glucose,Whole Blood 243 mg/dL (75-99)
--- NOTE | 2019-04-14 00:46 | P.CONS ---
History of Present Illness - Reason for Consult Consult date: 04/13/19 Fever Requesting physician: Artemio Lea - Chief Complaint Abnormal blood test and abdominal pain - History of Present Illness Patient is a 73-year-old female with past medical history significant for liver cirrhosis and hepatocellular carcinoma has been admitted to hospital after the patient noticed to have elevated troponin the outpatient setting patient with no chest pain shortness of breath or cough the patient did have some vague abdominal pain mostly in the abdominal area the leaking intensity about 3-4 out of 10 and no radiation some nausea but no vomiting she did have ileostomy and mentioned she did have increased output in her ileostomy bag patiallen nt subsequently has been the hospital for cardiac workup this patient was afebrile on admission did spike a fever of 101F yesterday, for which the patient did have workup done including a chest disease was negative for any pneumonia influenza PCR was negative and the patient UA has been negative pa malu did have a CT of abdominal pelvis completed today we did shows increase in the size of her hepatic mass with central necrosis infection disease was consulted for further recommendation regarding her fever and need for antibiotic therapy Review of Systems Positive points has been mentioned in HPI. Rest of the systems are negative Past Medical History Past Medical History: Cancer, Diabetes Mellitus, GERD/Reflux, Hypertension, Liver Disease, Myocardial Infarction (RI), Renal Disease Additional Past Medical History / Comment(s): Hepatocellular liver cancer with chemo immobilization-last time being 2017, ascities with paracentesis's last dec, nonalcoholic liver cirrhosis, chronic pancytopenia, chronic elevated ammonia levels, hepatic encephalopathy, chronic elevated LFTs, chronic abdominal pain, stomach ulcer, diverticular disease with ileostomy, IDDM type II, iron anemia, CKD stage III, nonsustained vtach, UTI, high ammonia levels Last Myocardial Infarction Date:: unk History of Any Multi-Drug Resistant Organisms: MRSA Year Discovered:: 12/30/18 MDRO Source:: Urine Past Surgical History: Appendectomy, Bowel Resection, Section, Cholecystectomy, Hysterectomy, Tonsillectomy Additional Past Surgical History / Comment(s): Chemo immobilizations, liver biopsies, paracentesis, bowel resection d/t diverticulitis/ileostomy, R rotator cuff repair, carpal tunnel release-laterality unknown. Past Anesthesia/Blood Transfusion Reactions: No Reported Reaction Past Psychological History: Anxiety, Depression Additional Psychological History / Comment(s): Pt resides with her son and daughter in law and grandchildren. She ambulates with a walker. She is receiving [facility]. 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 Reformed smoker. . Retired. No experience. No animal exposures Smoking Status: Former smoker Past Alcohol Use History: None Reported Additional Past Alcohol Use History / Comment(s): started smoking 1962 and quit 1965 Past Drug Use History: None Reported - Past Family History Mother History Unknown: Yes Family Medical History: Congestive Heart Failure (CHF) Additional Family Medical History / Comment(s): Mother is 94 yrs old. Father Family Medical History: Chest Pain / Angina Additional Family Medical History / Comment(s): Father is . Medications and Allergies Home Medications Medication Instructions Recorded Confirmed Type Omeprazole [PriLOSEC] 20 mg PO BID 10/23/18 04/07/19 History Sucralfate [Carafate] 1 gm PO QID 10/23/18 04/07/19 History Insulin Regular, Human [NovoLIN R] 10 unit SQ AC-TID 10/24/18 04/07/19 History buPROPion SR [Wellbutrin SR] 150 mg PO DAILY #30 tablet.er 12/21/18 04/07/19 Rx Magnesium Oxide [William] 500 mg PO DAILY 12/30/18 04/07/19 History Torsemide [Demadex] 20 mg PO DAILY 30 Days #30 tab 01/09/19 04/07/19 Rx Cholecalciferol [Vitamin D3 (25 4,000 unit PO DAILY 01/16/19 04/07/19 History Mcg = 1000 Iu)] Ferrous Sulfate [Iron (65 MG 325 mg PO BID 01/31/19 04/07/19 History Elemental)] Insulin NPH [humuLIN N] 18 unit SQ BID vial 02/06/19 04/07/19 Rx Morphine Sulfate ER [Ms Contin] 15 mg PO Q12HR 3 Days #6 tablet 03/06/19 Rx clonazePAM [KlonoPIN] 0.5 mg PO DAILY PRN #3 tab 03/06/19 04/07/19 Rx Dicyclomine [Bentyl] 20 mg PO TID 30 Days #180 cap 03/31/19 04/07/19 Rx Metoprolol Tartrate [Lopressor] 12.5 mg PO BID #0 tab 03/31/19 04/07/19 Rx Baclofen [Lioresal] 5 mg PO TID PRN #10 tablet 04/03/19 04/07/19 Rx Potassium Chloride [K-Tab ER] 20 meq PO DAILY 3 Days #3 tablet.er 04/03/19 04/07/19 Rx Lactulose [Cephulac] 45 gm PO TID 04/07/19 04/07/19 History Allergies Allergy/AdvReac Type Severity Reaction Status Date / Time amlodipine Allergy Rash/Hives Verified 04/07/19 17:08 oxycodone Allergy Rash/Hives Verified 04/07/19 17:08 Penicillins Allergy Rash/Hives Verified 04/07/19 17:08 hydromorphone [From Dilaudid] AdvReac Mild tactile Verified 04/07/19 17:08 disturbance GREG Inhibitors AdvReac Cough Verified 04/07/19 17:08 sodium dodecyclbenzene Allergy Rash/Hives Uncoded 04/07/19 16:32 sulfonate Physical Exam Vitals: Vital Signs Temp Pulse Pulse Resp BP Pulse Ox 04/13/19 04:50 99 F 62 18 137/70 100 04/13/19 00:00 56 L 61 18 04/12/19 21:00 99.4 F 61 18 105/52 100 04/12/19 13:39 98.3 F 04/12/19 12:02 101.1 F H 56 L 17 114/55 100 Intake and Output 04/12/19 04/13/19 04/13/19 22:59 06:59 14:59 Intake Total 200 720 Output Total 1 Balance 200 -1 720 Intake: Intake, IV Titration 200 Amount Magnesium Sulfate-D5w Pmx 200 1 gm In Dextrose/Water 1 100ml.bag @ 100 mls/hr IVPB Q1H [facility] Rx#: [id number] Oral 720 Output: Stool 1 Other: Voiding Method Toilet # Voids 1 3 # Bowel Movements 1 3 GENERAL DESCRIPTION: An elderly female lying in bed, no distress. No tachypnea or accessory muscle of respiration use. HEENT: Shows Pallor , no scleral icterus. Oral mucous membrane is dry. No pharyngeal erythema or thrush NECK: Trachea central, no thyromegaly. LUNGS: Unlabored breathing. Clear to auscultation anteriorly. No wheeze or crackle. HEART: S1, S2, regular rate and rhythm. No loud murmur ABDOMEN: Soft, no tenderness , guarding or rigidity, no organomegaly EXTREMITIES: No edema of feet. SKIN: No rash, no masses palpable. NEUROLOGICAL: The patient is awake, alert, oriented x3, mood and affect normal Results CBC & Chem 7: 04/13/19 09:34 04/13/19 09:34 Labs: Abnormal Lab Results - Last 24 Hours (Table) 04/12/19 04/12/19 04/12/19 Range/Units 11:32 17:11 19:46 RBC (3.80-5.40) m/uL Hgb (11.4-16.0) gm/dL Hct (34.0-46.0) % MCV (80.0-100.0) fL MCH (25.0-35.0) pg Plt Count (150-450) k/uL Lymphocytes # (1.0-4.8) k/uL Sodium (137-145) mmol/L Chloride (98-107) mmol/L Carbon Dioxide (22-30) mmol/L BUN (7-17) mg/dL Creatinine (0.52-1.04) mg/dL Glucose (74-99) mg/dL POC Glucose (mg/dL) 202 H 198 H (75-99) mg/dL Calcium (8.4-10.2) mg/dL Total Bilirubin (0.2-1.3) mg/dL AST (14-36) U/L ALT (9-52) U/L Alkaline Phosphatase (38-126) U/L Ammonia (<30) umol/L Troponin I 0.120 H* (0.000-0.034) ng/mL Total Protein (6.3-8.2) g/dL Albumin (3.5-5.0) g/dL 04/12/19 04/13/19 04/13/19 Range/Units 20:05 01:48 03:12 RBC (3.80-5.40) m/uL Hgb (11.4-16.0) gm/dL Hct (34.0-46.0) % MCV (80.0-100.0) fL MCH (25.0-35.0) pg Plt Count (150-450) k/uL Lymphocytes # (1.0-4.8) k/uL Sodium (137-145) mmol/L Chloride (98-107) mmol/L Carbon Dioxide (22-30) mmol/L BUN (7-17) mg/dL Creatinine (0.52-1.04) mg/dL Glucose (74-99) mg/dL POC Glucose (mg/dL) 316 H 236 H (75-99) mg/dL Calcium (8.4-10.2) mg/dL Total Bilirubin (0.2-1.3) mg/dL AST (14-36) U/L ALT (9-52) U/L Alkaline Phosphatase (38-126) U/L Ammonia (<30) umol/L Troponin I 0.108 H* (0.000-0.034) ng/mL Total Protein (6.3-8.2) g/dL Albumin (3.5-5.0) g/dL 04/13/19 04/13/19 04/13/19 Range/Units 06:56 09:05 09:34 RBC 3.06 L (3.80-5.40) m/uL Hgb 10.8 L (11.4-16.0) gm/dL Hct 32.9 L (34.0-46.0) % MCV 107.6 H (80.0-100.0) fL MCH 35.2 H (25.0-35.0) pg Plt Count 51 L (150-450) k/uL Lymphocytes # 0.9 L (1.0-4.8) k/uL Sodium (137-145) mmol/L Chloride (98-107) mmol/L Carbon Dioxide (22-30) mmol/L BUN (7-17) mg/dL Creatinine (0.52-1.04) mg/dL Glucose (74-99) mg/dL POC Glucose (mg/dL) 171 H (75-99) mg/dL Calcium (8.4-10.2) mg/dL Total Bilirubin (0.2-1.3) mg/dL AST (14-36) U/L ALT (9-52) U/L Alkaline Phosphatase (38-126) U/L Ammonia 124 H (<30) umol/L Troponin I (0.000-0.034) ng/mL Total Protein (6.3-8.2) g/dL Albumin (3.5-5.0) g/dL 04/13/19 04/13/19 Range/Units 09:34 11:10 RBC (3.80-5.40) m/uL Hgb (11.4-16.0) gm/dL Hct (34.0-46.0) % MCV (80.0-100.0) fL MCH (25.0-35.0) pg Plt Count (150-450) k/uL Lymphocytes # (1.0-4.8) k/uL Sodium 133 L (137-145) mmol/L Chloride 111 H (98-107) mmol/L Carbon Dioxide 19 L (22-30) mmol/L BUN 18 H (7-17) mg/dL Creatinine 1.09 H (0.52-1.04) mg/dL Glucose 198 H (74-99) mg/dL POC Glucose (mg/dL) 153 H (75-99) mg/dL Calcium 7.9 L (8.4-10.2) mg/dL Total Bilirubin 2.3 H (0.2-1.3) mg/dL AST 84 H (14-36) U/L ALT 66 H (9-52) U/L Alkaline Phosphatase 210 H (38-126) U/L Ammonia (<30) umol/L Troponin I (0.000-0.034) ng/mL Total Protein 5.3 L (6.3-8.2) g/dL Albumin 2.3 L (3.5-5.0) g/dL Microbiology - Last 24 Hours (Table) 04/12/19 16:12 Urine Culture - Preliminary Urine,Voided Assessment and Plan Assessment: 1-patient with an episode of fever and this patient who did have a history of liver cirrhosis and hepatocellular carcinoma for negative as was infectious etiology in this patient chest x-ray negative UA was negative influenza serology was negative for the patient did have a CT of abdominal pelvis which was increased in size of the hepatic mass with central necrosis that could be the cause of her fever or other noninfectious etiology such as DVT as this patient currently does not look toxic white count is normal 2-penicillin ALLERGIES limiting number of antibiotic safe to use Plan: 1-blood culture has been obtained those will be followed 2-we will empirically add Azactam 2 g every 12 while waiting for the cultures to finalize 3-obtain lower extremity Dopplers We will follow-up on clinical condition and culture to further adjust medication if needed Thank you for this consultation will follow this patient along with you Time with Patient: Greater than 30
[2019-04-14] MEDS: AZTREONAM 2 GM in SODIUM CHLORIDE 0.9% 100 ML IVPB SCH ×2 (01:02→13:02)
[2019-04-14 07:00] LABS: Glucose,Whole Blood 166 mg/dL (75-99)
[2019-04-14] MEDS: LACTULOSE 20 GM/30 ML CUP PO SCH ×3 (08:10→20:27)
[2019-04-14] MEDS: ASPIRIN 325 MG TAB PO SCH (08:11)
[2019-04-14] MEDS: MORPHINE SULFATE ER 15 MG TABLET PO SCH ×2 (08:11→20:25)
[2019-04-14] MEDS: MAGNESIUM OXIDE 400 MG TAB PO SCH (08:11)
[2019-04-14] MEDS: CHOLECALCIFEROL 1,000 UNIT TAB PO SCH (08:11)
[2019-04-14] MEDS: METOPROLOL TARTRATE 12.5 MG TAB PO SCH ×2 (08:11→20:27)
[2019-04-14] MEDS: SODIUM BICARBONATE TAB 650 MG TAB PO SCH ×2 (08:11→20:25)
[2019-04-14] MEDS: FERROUS SULFATE 325 MG TAB PO SCH ×2 (08:11→20:27)
[2019-04-14] MEDS: PANTOPRAZOLE 40 MG TABLET PO SCH (08:11)
[2019-04-14] MEDS: POTASSIUM CHLORIDE ER 20 MEQ TAB.ER PO SCH (08:12)
[2019-04-14] MEDS: buPROPion SR 150 MG TABLET.ER PO SCH (08:14)
[2019-04-14] MEDS: INSULIN REGULAR 100 UNIT/ML VIAL SQ SCH ×3 (08:14→18:02)
[2019-04-14] MEDS: SUCRALFATE 1 GM TAB PO SCH ×4 (08:14→20:29)
[2019-04-14] MEDS: RIFAXIMIN 550 MG TABLET PO SCH ×3 (08:14→20:28)
[2019-04-14] MEDS: INSULIN NPH 300 UNIT/3 ML VIAL SQ SCH ×2 (08:14→18:02)
[2019-04-14] MEDS: DICYCLOMINE 10 MG CAP PO SCH ×3 (08:14→20:28)
[2019-04-14 08:41] LABS: Albumin 2.4 g/dL (3.5-5.0); Calcium 8.2 mg/dL (8.4-10.2); Magnesium 2.3 mg/dL (1.6-2.3); Potassium 4.8 mmol/L (3.5-5.1); Total Bilirubin 2.2 mg/dL (0.2-1.3); Total Protein 5.8 g/dL (6.3-8.2)
--- NOTE | 2019-04-14 09:09 | US ---
EXAMINATION TYPE: US venous doppler duplex LE BI DATE OF EXAM: 04/14/2019 8:51 AM COMPARISON: US 11/27/2018 CLINICAL HISTORY: swelling and fever. SIDE PERFORMED: Bilateral TECHNIQUE: The lower extremity deep venous system is examined utilizing real time linear array sonog ty with graded compression, doppler sonography and color-flow sonography. VESSELS IMAGED: External Iliac Vein (EIV) Common Femoral Vein Deep Femoral Vein Greater Saphenous Vein * Femoral Vein Popliteal Vein Small Saphenous Vein * Proximal Calf Veins (* superficial vessels) Right Leg: Negative for DVT Left Leg: Negative for DVT IMPRESSION: no evidence for dvt
--- NOTE | 2019-04-14 09:18 | P.PN ---
Subjective Patient is seen in follow-up for acute kidney injury. Renal function is relatively stable. Creatinine 1.16 today. She is tolerating oral intake. No vomiting. No edema. Patient had a CT of the abdomen and pelvis done yesterday which revealed increased size of the hepatic mass. No clear cause of infection was identified. He should be afebrile this morning. Vital signs are stable. General: The patient appeared well nourished and normally developed. HEENT: Head exam is unremarkable. Neck is without jugular venous distension. LUNGS: Lungs are clear to auscultation and percussion. Breath sounds decreased. HEART: Rate and Rhythm are regular. First and second heart sounds normal. No murmurs, rubs or gallops. ABDOMEN: Abdominal exam reveals normal bowel sounds. Non-tender and non- distended. No evidence of peritonitis. EXTREMITITES: No clubbing, cyanosis, or edema. Objective - Vital Signs Vital signs: Vital Signs Temp 98.0 F 04/14/19 05:00 Pulse 66 04/14/19 08:27 Resp 18 04/14/19 05:00 BP 108/59 04/14/19 05:00 Pulse Ox 98 04/14/19 08:56 Intake & Output 04/13/19 04/14/19 04/14/19 18:59 06:59 18:59 Intake Total 3060 590 Output Total 3 Balance 3057 590 Weight 83.915 kg Intake: Oral 3060 590 Output: Stool 3 Other: Voiding Method Toilet Toilet # Voids 5 3 # Bowel Movements 3 - Labs CBC & Chem 7: 04/13/19 09:34 04/14/19 06:59 Labs: Abnormal Lab Results - Last 24 Hours (Table) 04/13/19 04/13/19 04/13/19 Range/Units 09:05 09:34 09:34 RBC 3.06 L (3.80-5.40) m/uL Hgb 10.8 L (11.4-16.0) gm/dL Hct 32.9 L (34.0-46.0) % MCV 107.6 H (80.0-100.0) fL MCH 35.2 H (25.0-35.0) pg Plt Count 51 L (150-450) k/uL Lymphocytes # 0.9 L (1.0-4.8) k/uL Sodium 133 L (137-145) mmol/L Chloride 111 H (98-107) mmol/L Carbon Dioxide 19 L (22-30) mmol/L BUN 18 H (7-17) mg/dL Creatinine 1.09 H (0.52-1.04) mg/dL Glucose 198 H (74-99) mg/dL POC Glucose (mg/dL) (75-99) mg/dL Calcium 7.9 L (8.4-10.2) mg/dL Total Bilirubin 2.3 H (0.2-1.3) mg/dL AST 84 H (14-36) U/L ALT 66 H (9-52) U/L Alkaline Phosphatase 210 H (38-126) U/L Ammonia 124 H (<30) umol/L Total Protein 5.3 L (6.3-8.2) g/dL Albumin 2.3 L (3.5-5.0) g/dL 04/13/19 04/13/19 04/13/19 Range/Units 11:10 16:56 20:58 RBC (3.80-5.40) m/uL Hgb (11.4-16.0) gm/dL Hct (34.0-46.0) % MCV (80.0-100.0) fL MCH (25.0-35.0) pg Plt Count (150-450) k/uL Lymphocytes # (1.0-4.8) k/uL Sodium (137-145) mmol/L Chloride (98-107) mmol/L Carbon Dioxide (22-30) mmol/L BUN (7-17) mg/dL Creatinine (0.52-1.04) mg/dL Glucose (74-99) mg/dL POC Glucose (mg/dL) 153 H 225 H 243 H (75-99) mg/dL Calcium (8.4-10.2) mg/dL Total Bilirubin (0.2-1.3) mg/dL AST (14-36) U/L ALT (9-52) U/L Alkaline Phosphatase (38-126) U/L Ammonia (<30) umol/L Total Protein (6.3-8.2) g/dL Albumin (3.5-5.0) g/dL 05/31/19 05/31/19 Range/Units 06:58 06:59 RBC (3.80-5.40) m/uL Hgb (11.4-16.0) gm/dL Hct (34.0-46.0) % MCV (80.0-100.0) fL MCH (25.0-35.0) pg Plt Count (150-450) k/uL Lymphocytes # (1.0-4.8) k/uL Sodium (137-145) mmol/L Chloride 117 H (98-107) mmol/L Carbon Dioxide 16 L (22-30) mmol/L BUN 20 H (7-17) mg/dL Creatinine 1.16 H (0.52-1.04) mg/dL Glucose 148 H (74-99) mg/dL POC Glucose (mg/dL) 166 H (75-99) mg/dL Calcium 8.2 L (8.4-10.2) mg/dL Total Bilirubin 2.2 H (0.2-1.3) mg/dL AST 86 H (14-36) U/L ALT 54 H (9-52) U/L Alkaline Phosphatase 265 H (38-126) U/L Ammonia (<30) umol/L Total Protein 5.8 L (6.3-8.2) g/dL Albumin 2.4 L (3.5-5.0) g/dL Microbiology - Last 24 Hours (Table) 04/12/19 16:12 Urine Culture - Final Urine,Voided 04/12/19 14:26 Blood Culture - Preliminary Blood No Growth after 24 hours Assessment and Plan Plan: Assessment: 1. Acute kidney injury mostly prerenal secondary to high output from the ostomy as well as diuretics. Renal function is improved since admission. Creatinine 1.16 today. Baseline creatinine near 1. 2. Metabolic acidosis secondary to acute kidney injury and GI losses. 3. Insulin-dependent diabetes mellitus. 4. History of hepatocellular carcinoma and liver cirrhosis. 5. Hypomagnesemia secondary to GI losses and diuretics. Status post replacement. Better. 6. Hypokalemia secondary to diuretics. Status post replacement. Better. Plan: Hold Demadex - can resume every other day upon discharge. Encourage oral intake. Avoid nephrotoxins. I will increase the dose of oral sodium bicarbonate. Follow-up cultures.
[2019-04-14] MEDS ORDERED: SODIUM BICARB 8.4% 50 ML SYR (1 MEQ/ML) IV STA (09:20)
--- NOTE | 2019-04-14 10:34 | P.PN ---
Subjective Progress Note Date: 04/14/19 Charlene Keenan, is a 73-year-old female with known history of liver cirrhosis and hepatocellular carcinoma who presented to [facility] emergency room due to abnormal blood test that her primary care physician's office which revealed elevated troponin level. Patient was evaluated in the emergency room and was admitted to medical floor, nurse on the floor noticed that patient mental status is declining with more confusion, labs on presentation also revealed evidence of elevated troponin level, elevated BUN and creatinine, mildly elevated ammonia level at 32. Patient has history of recurrent admissions to [facility] due to her multiple medical problems, she has known history of coronary artery disease, diabetes mellitus, liver cirrhosis, hepatocellular carcinoma, hy pertension, chronic renal insufficiency, anemia, and history of diverticular disease with previous ileostomy placement. On 04/09/2019 patient was seen and examined on the medical floor she is alert s lightly confused in no apparent distress there is no fever or chills no headache or dizziness no chest pain no shortness of breath no cough no nausea or vomiting no abdominal pain, she states her output through her ileostomy is more than usual, there is no burning was urination no frequency or urgency and no hematuria On 04/10/2019 patient is alert and oriented 3. Patient's confusion slightly i mproved. Creatinine improving to 1.08. Neurology services are following. Patient denies chest pain or shortness breath. Patient denies nausea vomiting or diarrhea. Patient denies any urinary burning or frequency On 04/11/2019 patient is alert and oriented 3. Patient has no confusion. Ammonia level 34. Patient on lactulose. Cardiology an neurology services are following. EEG has been ordered per neurology. Patient denies chest pain or shortness of breath. Patient denies nausea vomiting or diarrhea. Patient denies any urinary burning or frequency On 04/12/2019 patient is alert and oriented 3. Ammonia level 17. Patient having temp of 101.1. Chest x-ray, UA and influenza ordered. Patient denies any chest pain or shortness of breath. Patient denies any nausea vomiting or diarrhea. Patient denies any urinary burning or frequency. On 04/13/2019 patient's alert and oriented 3. Patient complaining of increased nausea and vomiting. Patient also had episode of chest pain throughout. cardiology services will be consulted. CT of abdomen with oral contrast only will be ordered along with infectious disease consult. At this time patient is complaining of nausea here he patient denies chest pain. Patient denies urinary burning or frequency. On 04/14/2019 patient's alert and oriented 3. Infectious disease is following. Started patient on Azactam. Cultures pending. Oncology services also consulted. At this time patient denies chest pain or shortness breath. Patient denies nausea vomiting or diarrhea. Patient denies any urinary burning or frequency. Amylase and lipase within normal limits Objective - Vital Signs Vital signs: Vital Signs Temp 98.0 F 04/14/19 05:00 Pulse 66 04/14/19 08:27 Resp 18 04/14/19 05:00 BP 108/59 04/14/19 05:00 Pulse Ox 98 04/14/19 08:56 Intake & Output 04/13/19 04/14/19 04/14/19 18:59 06:59 18:59 Intake Total 3060 590 Output Total 3 Balance 3057 590 Weight 83.915 kg Intake: Oral 3060 590 Output: Stool 3 Other: Voiding Method Toilet Toilet # Voids 5 3 # Bowel Movements 3 - Exam In general patient is alert slightly confused in no apparent distress HEENT sclera was mild icterus otherwise normocephalic and atraumatic Neck is supple no JVD no goiter no lymphadenopathy Chest exam reveals a few scattered crackles no wheezing Cardiac exam reveals regular heart sounds no gallops no murmurs Abdomen is soft nontender no organomegaly with normal bowel sounds Extremity exam reveals no edema no cyanosis or clubbing Neurological examination reveals confusion otherwise no focal neurological deficit. Alert and Oriented 3 - Labs CBC & Chem 7: 04/13/19 09:34 04/14/19 06:59 Labs: Abnormal Lab Results - Last 24 Hours (Table) 04/13/19 04/13/19 04/13/19 Range/Units 09:05 09:34 11:10 Sodium 133 L (137-145) mmol/L Chloride 111 H (98-107) mmol/L Carbon Dioxide 19 L (22-30) mmol/L BUN 18 H (7-17) mg/dL Creatinine 1.09 H (0.52-1.04) mg/dL Glucose 198 H (74-99) mg/dL POC Glucose (mg/dL) 153 H (75-99) mg/dL Calcium 7.9 L (8.4-10.2) mg/dL Total Bilirubin 2.3 H (0.2-1.3) mg/dL AST 84 H (14-36) U/L ALT 66 H (9-52) U/L Alkaline Phosphatase 210 H (38-126) U/L Ammonia 124 H (<30) umol/L Total Protein 5.3 L (6.3-8.2) g/dL Albumin 2.3 L (3.5-5.0) g/dL 04/13/19 04/13/19 04/14/19 Range/Units 16:56 20:58 06:58 Sodium (137-145) mmol/L Chloride (98-107) mmol/L Carbon Dioxide (22-30) mmol/L BUN (7-17) mg/dL Creatinine (0.52-1.04) mg/dL Glucose (74-99) mg/dL POC Glucose (mg/dL) 225 H 243 H 166 H (75-99) mg/dL Calcium (8.4-10.2) mg/dL Total Bilirubin (0.2-1.3) mg/dL AST (14-36) U/L ALT (9-52) U/L Alkaline Phosphatase (38-126) U/L Ammonia (<30) umol/L Total Protein (6.3-8.2) g/dL Albumin (3.5-5.0) g/dL 04/14/19 Range/Units 06:59 Sodium (137-145) mmol/L Chloride 117 H (98-107) mmol/L Carbon Dioxide 16 L (22-30) mmol/L BUN 20 H (7-17) mg/dL Creatinine 1.16 H (0.52-1.04) mg/dL Glucose 148 H (74-99) mg/dL POC Glucose (mg/dL) (75-99) mg/dL Calcium 8.2 L (8.4-10.2) mg/dL Total Bilirubin 2.2 H (0.2-1.3) mg/dL AST 86 H (14-36) U/L ALT 54 H (9-52) U/L Alkaline Phosphatase 265 H (38-126) U/L Ammonia (<30) umol/L Total Protein 5.8 L (6.3-8.2) g/dL Albumin 2.4 L (3.5-5.0) g/dL Microbiology - Last 24 Hours (Table) 04/12/19 16:12 Urine Culture - Final Urine,Voided 04/12/19 14:26 Blood Culture - Preliminary Blood No Growth after 24 hours Assessment and Plan Assessment: #1 elevated troponin level, patient is denying any chest pain or shortness of breath or palpitation, doubt acute coronary syndrome, will check serial enzymes cardiology consult has been requested. 2-D echo completed showing EF of 50-55%. Patient was evaluated by cardiology services abnormality in troponin is chronically patient is not consistent with acute coronary syndrome. #2 mental status changes with confusion. Ammonia level 19. Head CT completed showing essentially stable exam no acute abnormalities evident. Age-related atrophy and probable chronic small vessel ischemia. Neurology services are following. EEG ordered. Carotid Doppler completed showing no Flow-limiting stenosis. EKG completed showing mild background slowing consistent with encephalopathy no epileptiform activity was seen. Per neurology no other neurological workup indicated at this time #3 chronic kidney disease stage III with acute on chronic renal failure. Creatinine improving to 1.20 and bun 19. Per nephrology hold Demadex and can resume every other day upon discharge #4 underlying history of diabetes mellitus type 2 #5 underlying history of liver cirrhosis, will add refaximin #6 underlying history of hepatocellular carcinoma patient was seen by oncology in the past #7 underlying history of hypertension #8. Febrile illness. Patient having temp of 101.1. UA negative. Chest x-ray no evidence for acute pulmonary disease. Dr. Esparza will be consulted. Patient started on Azactam. Cultures pending #9 nausea and vomiting. Amylase and lipase with in normal limits. CT of abdomen completed Dr. Estrada been consulted due to patient's known history of hepatocellular carcinoma #10. Chest pain. Troponins 0.120 0.108. Cardiology services were consulted DVT prophylaxis SCDs due to chronic thrombocytopenia. GI prophylaxis Protonix Physical therapy consulted consulted. Social work services consult possible ECF I performed an examination of the patient and discussed their management with the Nurse Practitioner. I have reviewed the Nurse Practitioner's notes and agree with the documented findings and plan of care
[2019-04-14 11:07] LABS: Glucose,Whole Blood 277 mg/dL (75-99)
[2019-04-14] MEDS: NYSTATIN 100,000 UNIT/ML SUSP 500,000 UNIT/5 ML CUP PO SCH ×3 (13:04→20:27)
--- NOTE | 2019-04-14 13:21 | P.CONS ---
History of Present Illness - Reason for Consult Consult date: 04/14/19 Hx: Hepatocellular Requesting physician: Artemio Lea - Chief Complaint CT ? increase hepatocellular - History of Present Illness Ms. Keenan is a pleasant 73 year old female who was initially introduced to our service at recent hospitalization in 11/01. She has a known history of Hepatocellular carcinoma, originally diagnosed through [facility]. At her last hospitalization we were not able to obtain all of her medical records until now as she has been seen and treated at many different outside hospitals since her initial diagnosis. Medical Surgical History includes: Diverticulitis in 2010 with perforation colectomy, ileostomy, left lateral liver hepatocellular carcinoma, non-alcoholic liver cirrhosis (per patient diagnosis in 2002), Thrombocytopenia, Anemia, Hypertension, Diabetes Mellitus, OA, Mood Disorder, depression, Chronic Pain. Cholecystectomy, Appendectomy, Exp Lap with lysis of adhesions, Total abdominal hysterectomy, C-sections. 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 [facility] was consulted as well on intial pathology. It was felt to be an unusual appearing neoplasm at [facility] as hepatocellular parenchyma exhibited heavily lipidized cells by collag en and lymphoid response. Note she has history of an existing ileostomy due to dicerticulitis perforation in 2010, where colectomy and ileostomy was completed on 09/11/2011 04/18/2013 - Admitted to [facility] - under Dr. Desai with intent to resect liver mass, ex lap performed but excision of mass was not able to be performed Sometime between 2012--2014 she was treated with Chemoembolization (per patient at [facility]) She was also seen and treated by Dr. Varela during this time 2014: Seen at [facility] and again in 2016 she consulted with yet another hematology, oncologist Dr. Greg Bear in November 2016. 02/2016 - Ablation liver mass (unknown hospital) 06/2016 - Was evaluated at [facility] by Gastroenterology when a repeat liver biopsy was performed. Resulted with well-differentiated Hepatocellular Carcinoma 10/2016 Underwent Chemoembolization to left hepatic lobe with Interventional Radiology 08/2018 - She was evaluated at [facility] Right Hepatic Lobe Biopsy was performed - Well differentiated Hepatocellular Carcinoma and new 4.3cm right he patic mass and underwent chemoembolization at this facility in August. At this time she also consulted with Medical Oncologist Dr. Ar Julio. She has had multiple admissions for abdominal pain, and recurrent ascites. She has had multiple paracenteses with cytology negative. This is felt to be related to her known cirrhosis. Her pain is not felt to be related to her HCC, and appears to be due to hernia related to her stoma, exacerbated by jasmyn recurrent ascites. She has had multiple office appointments made but has not kept them due to recurrent hospital admissions She was advised to f/u with her surgeon at [facility], and states she has an appointment with a physician from that group Ms. Keenan has had 16 presentations to the emergency and admissions through Emergency since October 2018. her home situation has been addressed, psychiatry and social work have also evaluated. Review of Systems A 14 point review of systems assessed and completed and all negative except HPI Past Medical History Past Medical History: Cancer, Diabetes Mellitus, GERD/Reflux, Hypertension, Liver Disease, Myocardial Infarction (CT), Renal Disease Additional Past Medical History / Comment(s): Hepatocellular liver cancer with chemo immobilization-last time being 2017, ascities with paracentesis's last dec, nonalcoholic liver cirrhosis, chronic pancytopenia, chronic elevated ammonia levels, hepatic encephalopathy, chronic elevated LFTs, chronic abdominal pain, stomach ulcer, diverticular disease with ileostomy, IDDM type II, iron anemia, CKD stage III, nonsustained vtach, UTI, high ammonia levels Last Myocardial Infarction Date:: unk History of Any Multi-Drug Resistant Organisms: MRSA Year Discovered:: 12/30/18 MDRO Source:: Urine Past Surgical History: Appendectomy, Bowel Resection, Section, Cholecystectomy, Hysterectomy, Tonsillectomy Additional Past Surgical History / Comment(s): Chemo immobilizations, liver biopsies, paracentesis, bowel resection d/t diverticulitis/ileostomy, R rotator cuff repair, carpal tunnel release-laterality unknown. Past Anesthesia/Blood Transfusion Reactions: No Reported Reaction Past Psychological History: Anxiety, Depression Additional Psychological History / Comment(s): Pt resides with her son and daughter in law and grandchildren. She ambulates with a walker. She is receiving [facility]. 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 Reformed smoker. . Retired. No experience. No animal exposures Smoking Status: Former smoker Past Alcohol Use History: None Reported Additional Past Alcohol Use History / Comment(s): started smoking 1962 and quit 1965 Past Drug Use History: None Reported - Past Family History Mother History Unknown: Yes Family Medical History: Congestive Heart Failure (CHF) Additional Family Medical History / Comment(s): Mother is 94 yrs old. Father Family Medical History: Chest Pain / Angina Additional Family Medical History / Comment(s): Father is . Medications and Allergies Home Medications Medication Instructions Recorded Confirmed Type Omeprazole [PriLOSEC] 20 mg PO BID 10/23/18 04/07/19 History Sucralfate [Carafate] 1 gm PO QID 10/23/18 04/07/19 History Insulin Regular, Human [NovoLIN R] 10 unit SQ AC-TID 10/24/18 04/07/19 History buPROPion SR [Wellbutrin SR] 150 mg PO DAILY #30 tablet.er 12/21/18 04/07/19 Rx Magnesium Oxide [William] 500 mg PO DAILY 12/30/18 04/07/19 History Torsemide [Demadex] 20 mg PO DAILY 30 Days #30 tab 01/09/19 04/07/19 Rx Cholecalciferol [Vitamin D3 (25 4,000 unit PO DAILY 01/16/19 04/07/19 History Mcg = 1000 Iu)] Ferrous Sulfate [Iron (65 MG 325 mg PO BID 01/31/19 04/07/19 History Elemental)] Insulin NPH [humuLIN N] 18 unit SQ BID vial 02/06/19 04/07/19 Rx Morphine Sulfate ER [Ms Contin] 15 mg PO Q12HR 3 Days #6 tablet 03/06/19 04/07/19 Rx clonazePAM [KlonoPIN] 0.5 mg PO DAILY PRN #3 tab 03/06/19 04/07/19 Rx Dicyclomine [Bentyl] 20 mg PO TID 30 Days #180 cap 03/31/19 04/07/19 Rx Metoprolol Tartrate [Lopressor] 12.5 mg PO BID #0 tab 03/31/19 04/07/19 Rx Baclofen [Lioresal] 5 mg PO TID PRN #10 tablet 04/03/19 04/07/19 Rx Potassium Chloride [K-Tab ER] 20 meq PO DAILY 3 Days #3 tablet.er 04/03/19 04/07/19 Rx Lactulose [Cephulac] 45 gm PO TID 04/07/19 04/07/19 History Allergies Allergy/AdvReac Type Severity Reaction Status Date / Time amlodipine Allergy Rash/Hives Verified 04/07/19 17:08 oxycodone Allergy Rash/Hives Verified 04/07/19 17:08 Penicillins Allergy Rash/Hives Verified 04/07/19 17:08 hydromorphone [From Dilaudid] AdvReac Mild tactile Verified 04/07/19 17:08 disturbance GREG Inhibitors AdvReac Cough Verified 04/07/19 17:08 sodium dodecyclbenzene Allergy Rash/Hives Uncoded 04/07/19 16:32 sulfonate Physical Exam Vitals: Vital Signs Temp Pulse Pulse Resp BP BP Pulse Ox 04/14/19 11:48 99.2 F 50 L 16 118/69 100 04/14/19 08:56 98 04/14/19 08:27 66 04/14/19 05:00 98.0 F 54 L 18 108/59 98 04/13/19 22:40 98.8 F 04/13/19 21:00 100.8 F H 61 18 116/63 100 04/13/19 16:00 60 16 Intake and Output 04/13/19 04/14/19 04/14/19 22:59 06:59 14:59 Intake Total 1440 590 Output Total 2 Balance 1438 590 Intake: Oral 1440 590 Output: Stool 2 Other: Voiding Method Toilet Toilet # Voids 1 3 # Bowel Movements 3 Constitutional General appearance: no acute distress - EENT Eyes: EOMI, PERRLA ENT: hearing grossly normal, normal oropharynx - Neck Neck: no lymphadenopathy Thyroid: bilateral: normal size - Respiratory Respiratory: bilateral: CTA - Cardiovascular Rhythm: regular Heart sounds: normal: S1, S2 - Gastrointestinal Right lower quadrant ostomy General gastrointestinal: distended, normal bowel sounds, soft - Integumentary Integumentary: normal - Neurologic Neurologic: CNII-XII intact - Musculoskeletal Musculoskeletal: generalized weakness, strength equal bilaterally - Psychiatric Psychiatric: Sleepy, poor historian Results CBC & Chem 7: 04/13/19 09:34 04/14/19 06:59 Labs: Abnormal Lab Results - Last 24 Hours (Table) 04/13/19 04/13/19 04/14/19 Range/Units 16:56 20:58 06:58 Chloride (98-107) mmol/L Carbon Dioxide (22-30) mmol/L BUN (7-17) mg/dL Creatinine (0.52-1.04) mg/dL Glucose (74-99) mg/dL POC Glucose (mg/dL) 225 H 243 H 166 H (75-99) mg/dL Calcium (8.4-10.2) mg/dL Total Bilirubin (0.2-1.3) mg/dL AST (14-36) U/L ALT (9-52) U/L Alkaline Phosphatase (38-126) U/L Total Protein (6.3-8.2) g/dL Albumin (3.5-5.0) g/dL 04/14/19 04/14/19 Range/Units 06:59 11:05 Chloride 117 H (98-107) mmol/L Carbon Dioxide 16 L (22-30) mmol/L BUN 20 H (7-17) mg/dL Creatinine 1.16 H (0.52-1.04) mg/dL Glucose 148 H (74-99) mg/dL POC Glucose (mg/dL) 277 H (75-99) mg/dL Calcium 8.2 L (8.4-10.2) mg/dL Total Bilirubin 2.2 H (0.2-1.3) mg/dL AST 86 H (14-36) U/L ALT 54 H (9-52) U/L Alkaline Phosphatase 265 H (38-126) U/L Total Protein 5.8 L (6.3-8.2) g/dL Albumin 2.4 L (3.5-5.0) g/dL Microbiology - Last 24 Hours (Table) 04/12/19 16:12 Urine Culture - Final Urine,Voided 04/12/19 14:26 Blood Culture - Preliminary Blood No Growth after [address] scan - abdomen: report reviewed CT scan - pelvis: report reviewed Assessment and Plan Plan: Comments: CT of the abdomen and pelvis reviewed no changes in her size of liver mass with her known history of hepatocellular cancer extensive cirrhosis as normal does not mention any acute etiology for her complaint CT scan - abdomen: report reviewed CT scan - pelvis: report reviewed Assessment and Plan 1. Hepatocellular Carcinoma - Status Post Chemoembolization: 2013, 2016 and recent 2018 - [facility] opinions from multiple outside hospitals - Currently Monitoring as no active evidence of disease 2. Recurrent abdominal pain related admission: Recurrent admission, despite education and outpatient plan, remediation again provided. - I recommend keeping her on PO Pain medication without IV Bous for breakthrough as she will need to control at home - Recommend PRN standing order Weekly Paracentesis, this is not related to [facility] [place] [facility] but underlying liver disease, cirrhosis. - Inconsistent and unclear: Likely multifactoral - Recurrent Ascites - Requiring Paracentesis, Recent MRSA Stools, 3. Abdominal Ascites: Status Post Paracentesis prn - Recommend PRN Standing order for outpatient paracentesis - Recent Paracentesis was negative for malignant cells 4. Recurrent Emergency Visits and Hospitalizations: - 16 admissions since 2017, prior to that multiple different hospital opinions and visits throughout [place] 5. Hepatic Encephalopathy: Labile - Lactulose per GI and Primary team. - Patient will benefit from close outpatient GI monitoring. 6. Bloody Stool - Monitor Hemoglobin - stable Plan: - AFP does not show increase, CT difficult to differentiate if progression or not. MRI has been ordered to further assess. - Other issues and co-morbidies per primary team - Recurrent hospitalizations for uncontrolled symptoms, would palliative care be appropriate Charlene GAO
--- NOTE | 2019-04-14 13:30 | P.PN ---
Subjective This is a pleasant 73-year-old female history of liver cirrhosis and carcinoma diagnosed 2010 requiring frequent paracentesis', nonsustained ventricular tachycardia, diabetes mellitus, hypertension, chronic kidney disease and chronic anemia. GENERAL: Well-appearing, well-nourished and in no acute distress. Limited echo obtained earlier in this admission revealed mildly impaired LV systolic function with ejection fraction 50-55%, basal inferolateral hypokinesia. Consistent with previous echocardiogram. She initially presented to the hospital on advice of her PCP for elevated troponin drawn as an outpatient. She consistently has mi ldly elevated flat troponin elevation of unclear significance. She was seen initially by Dr. Matthew on 04/08 due to abnormal troponin and cleared from a cardiac perspective. She is currently being treated for increased confusion with elevated ammonia level and acute kidney injury. We have been asked to see her again on this admission for chest pain. She states yesterday while sitting in bed intermittently through the day she felt an "ache" in the left shoulder at the base of her neck that radiated to the left anterior chest wall. The ache was worse with deep inspiration and on palpitation. Not associated with movement of her left arm or torso. The pain was not related to exertion or activity. She denies radiation down the left arm. Not associated with shortness of breath, dizziness or palpitations. Currently she is chest pain free. Infectious disease on consult also for fever. Blood cultures pending. Today's labs pending. Labs from yesterday reviewed, WBC 6, hgb 10.8, plt 51, sodium 133, potassium 4.7, creatinine 1.09, magnesium 2.1, AST 84, ALT 66, alkaline phosphate 210, troponin 0.137, 0.134, 0.104, 0.120 and 0.108. Blood pressure 108/59 heart rate 54 afebrile oxygen saturation maintained on room air. Currently maintained on aspirin 325 mg daily, lopressor 12.5 BID. Demadex has been discontinued per nephrology. NECK: Supple without JVD or thyromegaly. LUNGS: Breath sounds clear to auscultation bilaterally. Respiration equal and unlabored. No wheezes, rales or rhonchi. HEART: Regular rate and rhythm with systolic ejection murmur at the base, no rubs or gallops. S1 and S2 heard. EXTREMITIES: Normal range of motion, no edema. No clubbing or cyanosis. Peripheral pulses intact. ASSESSMENT Pleuritic chest pain, not suggestive of angina. Chronic troponin elevation, not suggestive of coronary syndrome. PLAN Chest pain is pleuritic in nature. Pain is worse with deep inspiration and reproducible on palpation. This is not suggestive of angina. We will follow as needed, ongoing medical management. Nurse Practitioner note has been reviewed, I agree with a documented findings and plan of care. Patient was seen and examined. Objective - Vital Signs Vital signs: Vital Signs Temp 98.0 F 04/14/19 05:00 Pulse 66 04/14/19 08:27 Resp 18 04/14/19 05:00 BP 108/59 04/14/19 05:00 Pulse Ox 98 04/14/19 05:00 Intake & Output 04/13/19 04/14/19 04/14/19 18:59 06:59 18:59 Intake Total 3060 590 Output Total 3 Balance 3057 590 Weight 83.915 kg Intake: Oral 3060 590 Output: Stool 3 Other: Voiding Method Toilet Toilet # Voids 5 3 # Bowel Movements 3 - Labs CBC & Chem 7: 04/13/19 09:34 04/14/19 06:59 Labs: Abnormal Lab Results - Last 24 Hours (Table) 04/13/19 04/13/19 04/13/19 Range/Units 09:05 09:34 09:34 RBC 3.06 L (3.80-5.40) m/uL Hgb 10.8 L (11.4-16.0) gm/dL Hct 32.9 L (34.0-46.0) % MCV 107.6 H (80.0-100.0) fL MCH 35.2 H (25.0-35.0) pg Plt Count 51 L (150-450) k/uL Lymphocytes # 0.9 L (1.0-4.8) k/uL Sodium 133 L (137-145) mmol/L Chloride 111 H (98-107) mmol/L Carbon Dioxide 19 L (22-30) mmol/L BUN 18 H (7-17) mg/dL Creatinine 1.09 H (0.52-1.04) mg/dL Glucose 198 H (74-99) mg/dL POC Glucose (mg/dL) (75-99) mg/dL Calcium 7.9 L (8.4-10.2) mg/dL Total Bilirubin 2.3 H (0.2-1.3) mg/dL AST 84 H (14-36) U/L ALT 66 H (9-52) U/L Alkaline Phosphatase 210 H (38-126) U/L Ammonia 124 H (<30) umol/L Total Protein 5.3 L (6.3-8.2) g/dL Albumin 2.3 L (3.5-5.0) g/dL 04/13/19 04/13/19 04/13/19 Range/Units 11:10 16:56 20:58 RBC (3.80-5.40) m/uL Hgb (11.4-16.0) gm/dL Hct (34.0-46.0) % MCV (80.0-100.0) fL MCH (25.0-35.0) pg Plt Count (150-450) k/uL Lymphocytes # (1.0-4.8) k/uL Sodium (137-145) mmol/L Chloride (98-107) mmol/L Carbon Dioxide (22-30) mmol/L BUN (7-17) mg/dL Creatinine (0.52-1.04) mg/dL Glucose (74-99) mg/dL POC Glucose (mg/dL) 153 H 225 H 243 H (75-99) mg/dL Calcium (8.4-10.2) mg/dL Total Bilirubin (0.2-1.3) mg/dL AST (14-36) U/L ALT (9-52) U/L Alkaline Phosphatase (38-126) U/L Ammonia (<30) umol/L Total Protein (6.3-8.2) g/dL Albumin (3.5-5.0) g/dL 04/14/19 Range/Units 06:58 RBC (3.80-5.40) m/uL Hgb (11.4-16.0) gm/dL Hct (34.0-46.0) % MCV (80.0-100.0) fL MCH (25.0-35.0) pg Plt Count (150-450) k/uL Lymphocytes # (1.0-4.8) k/uL Sodium (137-145) mmol/L Chloride (98-107) mmol/L Carbon Dioxide (22-30) mmol/L BUN (7-17) mg/dL Creatinine (0.52-1.04) mg/dL Glucose (74-99) mg/dL POC Glucose (mg/dL) 166 H (75-99) mg/dL Calcium (8.4-10.2) mg/dL Total Bilirubin (0.2-1.3) mg/dL AST (14-36) U/L ALT (9-52) U/L Alkaline Phosphatase (38-126) U/L Ammonia (<30) umol/L Total Protein (6.3-8.2) g/dL Albumin (3.5-5.0) g/dL Microbiology - Last 24 Hours (Table) 04/12/19 16:12 Urine Culture - Final Urine,Voided 04/12/19 14:26 Blood Culture - Preliminary Blood No Growth after 24 hours
[2019-04-14 17:22] LABS: Glucose,Whole Blood 116 mg/dL (75-99)
--- NOTE | 2019-04-14 19:54 | PN ---
PROGRESS NOTE DATE OF SERVICE: 04/14/2019. REASON FOR FOLLOWUP: Fever. INTERVAL HISTORY: The patient did have a low-grade fever of 100.8 around midnight. The patient has been afebrile since then. The patient has been breathing comfortably. Denies having any chest pain. No shortness of breath or cough. Abdominal pain has improved. No nausea, no vomiting. PHYSICAL EXAMINATION: Blood pressure 118/67, pulse of 50, temperature 99.2. She is 100% on room air. General description is an elderly female, lying in bed in no distress. Respiratory system: Unlabored breathing. Clear to auscultation anteriorly. Heart S1, S2. Regular rate and rhythm. Abdomen soft, no tenderness. LABS: BUN of 20, creatinine 1.16. Liver enzymes are elevated. Blood and urine cultures have been negative so far. DIAGNOSTIC IMPRESSION AND PLAN: Patient with fever in this patient who did have cirrhosis and hepatocellular carcinoma with a CT did show evidence of central necrosis, possible related to cause of her fever, possible cholangitis. The patient is currently covered with Azactam because of PENICILLIN allergy. However, the patient states she has taken Keflex without any problem and hence we will switch over antibiotic to Rocephin 1 g daily and monitor clinical course closely. Continue supportive care. MMODL / IJN: [id number] /
[2019-04-14 20:56] LABS: Glucose,Whole Blood 159 mg/dL (75-99)
[2019-04-14] MEDS: ONDANSETRON 4 MG/2 ML VIAL IVP PRN (22:26)
[2019-04-15 06:54] LABS: Glucose,Whole Blood 136 mg/dL (75-99)
[2019-04-15] MEDS: INSULIN REGULAR 100 UNIT/ML VIAL SQ SCH ×3 (08:49→17:36)
[2019-04-15] MEDS: INSULIN NPH 300 UNIT/3 ML VIAL SQ SCH ×2 (08:49→17:36)
[2019-04-15] MEDS: PANTOPRAZOLE 40 MG TABLET PO SCH (08:50)
[2019-04-15] MEDS: buPROPion SR 150 MG TABLET.ER PO SCH (08:51)
[2019-04-15] MEDS: CHOLECALCIFEROL 1,000 UNIT TAB PO SCH (08:52)
[2019-04-15] MEDS: ASPIRIN 325 MG TAB PO SCH (08:52)
[2019-04-15] MEDS: MORPHINE SULFATE ER 15 MG TABLET PO SCH ×2 (08:53→22:16)
[2019-04-15] MEDS: SUCRALFATE 1 GM TAB PO SCH ×4 (08:54→22:15)
[2019-04-15] MEDS: RIFAXIMIN 550 MG TABLET PO SCH ×2 (08:54→22:15)
[2019-04-15] MEDS: MAGNESIUM OXIDE 400 MG TAB PO SCH (08:54)
[2019-04-15] MEDS: POTASSIUM CHLORIDE ER 20 MEQ TAB.ER PO SCH (08:54)
[2019-04-15] MEDS: FERROUS SULFATE 325 MG TAB PO SCH ×2 (08:55→22:15)
[2019-04-15] MEDS: DICYCLOMINE 10 MG CAP PO SCH ×3 (08:55→22:15)
[2019-04-15] MEDS: NYSTATIN 100,000 UNIT/ML SUSP 500,000 UNIT/5 ML CUP PO SCH ×4 (08:55→22:15)
[2019-04-15] MEDS: SODIUM BICARBONATE TAB 650 MG TAB PO SCH ×2 (08:55→22:15)
[2019-04-15] MEDS: LACTULOSE 20 GM/30 ML CUP PO SCH ×3 (09:08→22:16)
[2019-04-15] MEDS: METOPROLOL TARTRATE 12.5 MG TAB PO SCH ×2 (09:10→22:15)
[2019-04-15 09:54] LABS: Basophils % (A) 1 %; Eosinophils # (A) 0.3 k/uL (0-0.7); Eosinophils % (A) 6 %; HCT 33.2 % (34.0-46.0); HGB 10.7 gm/dL (11.4-16.0); Lymphocytes # (A) 0.7 k/uL (1.0-4.8); Lymphocytes % (A) 16 %; MCH 34.6 pg (25.0-35.0); MCHC 32.2 g/dL (31.0-37.0); MCV 107.4 fL (80.0-100.0); Macrocytosis Moderate; Mean Platelet Volume 10.2; Monocytes # (A) 0.3 k/uL (0-1.0); Monocytes % (A) 8 %; Neutrophils % (A) 68 %; RBC 3.09 m/uL (3.80-5.40); WBC 4.5 k/uL (3.8-10.6)
[2019-04-15 09:57] LABS: Albumin 2.3 g/dL (3.5-5.0); Potassium 4.2 mmol/L (3.5-5.1); Total Bilirubin 1.5 mg/dL (0.2-1.3); Total Protein 5.3 g/dL (6.3-8.2)
[2019-04-15 10:14] LABS: Platelet Count 52 k/uL (150-450)
[2019-04-15 11:22] LABS: Glucose,Whole Blood 165 mg/dL (75-99)
--- NOTE | 2019-04-15 11:34 | P.PN ---
Subjective Progress Note Date: 04/15/19 Charlene Keenan, is a 73-year-old female with known history of liver cirrhosis and hepatocellular carcinoma who presented to [facility] emergency room due to abnormal blood test that her primary care physician's office which revealed elevated troponin level. Patient was evaluated in the emergency room and was admitted to medical floor, nurse on the floor noticed that patient mental status is declining with more confusion, labs on presentation also revealed evidence of elevated troponin level, elevated BUN and creatinine, mildly elevated ammonia level at 32. Patient has history of recurrent admissions to [facility] due to her multiple medical problems, she has known history of coronary artery disease, diabetes mellitus, liver cirrhosis, hepatocellular carcinoma, h ypertension, chronic renal insufficiency, anemia, and history of diverticular disease with previous ileostomy placement. On 04/09/2019 patient was seen and examined on the medical floor she is alert slightly confused in no apparent distress there is no fever or chills no headache or dizziness no chest pain no shortness of breath no cough no nausea or vomiting no abdominal pain, she states her output through her ileostomy is more than usual, there is no burning was urination no frequency or urgency and no hematuria. On 04/10/2019 patient is alert and oriented 3. Patient's confusion slightly improved. Creatinine improving to 1.08. Neurology services are following. Patient denies chest pain or shortness breath. Patient denies nausea vomiting or diarrhea. Patient denies any urinary burning or frequency On 04/11/2019 patient is alert and oriented 3. Patient has no confusion. Amm onia level 34. Patient on lactulose. Cardiology an neurology services are following. EEG has been ordered per neurology. Patient denies chest pain or shortness of breath. Patient denies nausea vomiting or diarrhea. Patient denies any urinary burning or frequency On 04/12/2019 patient is alert and oriented 3. Ammonia level 17. Patient having temp of 101.1. Chest x-ray, UA and influenza ordered. Patient denies any chest pain or shortness of breath. Patient denies any nausea vomiting or diarrhea. Patient denies any urinary burning or frequency. On 04/13/2019 patient's alert and oriented 3. Patient complaining of increased nausea and vomiting. Patient also had episode of chest pain throughout. cardiology services will be consulted. CT of abdomen with oral contrast only will be ordered along with infectious disease consult. At this time patient is complaining of nausea here he patient denies chest pain. Patient denies urinary burning or frequency. On 04/14/2019 patient's alert and oriented 3. Infectious disease is following. Started patient on Azactam. Cultures pending. Oncology services also consulted. At this time patient denies chest pain or shortness breath. Patient denies nausea vomiting or diarrhea. Patient denies any urinary burning or frequency. Amylase and lipase within normal limits. On 04/15/2019 patient is alert and oriented 3. Patient has no confusion. Ammonia level 17. Patient on lactulose. infectious disease following, patient switched to Rocphin. Patient denies chest pain or shortness of breath. Patient denies nausea vomiting or diarrhea. Patient denies any urinary burning or frequency Objective - Vital Signs Vital signs: Vital Signs Temp 97.8 F 04/15/19 05:00 Pulse 50 L 04/15/19 08:30 Resp 18 04/15/19 08:30 BP 104/61 04/15/19 05:00 Pulse Ox 99 04/15/19 05:00 Intake & Output 04/14/19 04/15/19 04/15/19 18:59 06:59 18:59 Intake Total 2360 Output Total 1 2 Balance 2359 -2 Intake: Intake, IV Titration 100 Amount Aztreonam 2 gm In Sodium 100 Chloride 0.9% 100 ml @ 100 mls/hr IVPB Q12H [facility] Rx#:[id number] Oral 2260 Output: Stool 1 2 Other: Voiding Method Toilet Toilet Toilet # Voids 3 3 # Bowel Movements 2 - Exam In general patient is alert slightly confused in no apparent distress HEENT sclera was mild icterus otherwise normocephalic and atraumatic Neck is supple no JVD no goiter no lymphadenopathy Chest exam reveals a few scattered crackles no wheezing Cardiac exam reveals regular heart sounds no gallops no murmurs Abdomen is soft nontender no organomegaly with normal bowel sounds Extremity exam reveals no edema no cyanosis or clubbing Neurological examination reveals confusion otherwise no focal neurological deficit - Labs CBC & Chem 7: 04/15/19 09:13 04/15/19 09:13 Labs: Abnormal Lab Results - Last 24 Hours (Table) 04/14/19 04/14/19 04/15/19 Range/Units 16:59 20:54 06:53 RBC (3.80-5.40) m/uL Hgb (11.4-16.0) gm/dL Hct (34.0-46.0) % MCV (80.0-100.0) fL Plt Count (150-450) k/uL Lymphocytes # (1.0-4.8) k/uL Chloride (98-107) mmol/L Carbon Dioxide (22-30) mmol/L BUN (7-17) mg/dL Creatinine (0.52-1.04) mg/dL Glucose (74-99) mg/dL POC Glucose (mg/dL) 116 H 159 H 136 H (75-99) mg/dL Calcium (8.4-10.2) mg/dL Total Bilirubin (0.2-1.3) mg/dL AST (14-36) U/L Alkaline Phosphatase (38-126) U/L Total Protein (6.3-8.2) g/dL Albumin (3.5-5.0) g/dL 04/15/19 04/15/19 04/15/19 Range/Units 09:13 09:13 11:20 RBC 3.09 L (3.80-5.40) m/uL Hgb 10.7 L (11.4-16.0) gm/dL Hct 33.2 L (34.0-46.0) % MCV 107.4 H (80.0-100.0) fL Plt Count 52 L (150-450) k/uL Lymphocytes # 0.7 L (1.0-4.8) k/uL Chloride 115 H (98-107) mmol/L Carbon Dioxide 19 L (22-30) mmol/L BUN 20 H (7-17) mg/dL Creatinine 1.18 H (0.52-1.04) mg/dL Glucose 162 H (74-99) mg/dL POC Glucose (mg/dL) 165 H (75-99) mg/dL Calcium 8.0 L (8.4-10.2) mg/dL Total Bilirubin 1.5 H (0.2-1.3) mg/dL AST 57 H (14-36) U/L Alkaline Phosphatase 235 H (38-126) U/L Total Protein 5.3 L (6.3-8.2) g/dL Albumin 2.3 L (3.5-5.0) g/dL Microbiology - Last 24 Hours (Table) 04/12/19 14:26 Blood Culture - Preliminary Blood No Growth after 48 hours Assessment and Plan Plan: #1 elevated troponin level, patient is denying any chest pain or shortness of breath or palpitation, doubt acute coronary syndrome, will check serial enzymes cardiology consult has been requested. 2-D echo completed showing EF of 50-55%. Patient was evaluated by cardiology services abnormality in troponin is chronically patient is not consistent with acute coronary syndrome. #2 mental status changes with confusion. Ammonia level 19. Head CT completed showing essentially stable exam no acute abnormalities evident. Age-related atrophy and probable chronic small vessel ischemia. Neurology services are following. EEG ordered. Carotid Doppler completed showing no Flow-limiting stenosis. EKG completed showing mild background slowing consistent with encephalopathy no epileptiform activity was seen. Per neurology no other neurological workup indicated at this time #3 chronic kidney disease stage III with acute on chronic renal failure. Creatinine improving to 1.20 and bun 19. Per nephrology hold Demadex and can resume every other day upon discharge #4 underlying history of diabetes mellitus type 2 #5 underlying history of liver cirrhosis, will add refaximin #6 underlying history of hepatocellular carcinoma patient was seen by oncology in the past #7 underlying history of hypertension #8. Febrile illness. Patient having temp of 101.1. UA negative. Chest x-ray no evidence for acute pulmonary disease. Dr. Esparza will be consulted. Patient started on Azactam. Cultures pending #9 nausea and vomiting. Amylase and lipase with in normal limits. CT of abdomen completed Dr. Estrada been consulted due to patient's known history of hepatocellular carcinoma #10. Chest pain. Troponins 0.120 0.108. Cardiology services were consulted DVT prophylaxis SCDs due to chronic thrombocytopenia. GI prophylaxis Protonix Physical therapy consulted consulted. Social work services consult possible ECF
--- NOTE | 2019-04-15 15:05 | MR ---
EXAMINATION TYPE: MR liver wo/w con and mrcp DATE OF EXAM: 04/15/2019 COMPARISON: CT abdomen and pelvis 2 days ago. HISTORY: Further assess for changes or progression. Patient admitted for nausea vomiting and generali zed pain CONTRAST: Standard multiplanar, multisequence MRI departmental protocol utilizing 8.5 mL intravenous Gadavist g adolinium contrast. Thin and thick slice MRCP imaging is acquired. FINDINGS: Exam noted suboptimal as patient in this medical condition is unable to breath-hold which c auses significant artifact on MRI images acquired. LIVER/GB/PANCREAS/BILIARY SYSTEM: Gallbladder is noted surgically absent. Liver is redemonstrated sma ll in size and lobulated in contour consistent with underlying cirrhosis. Corresponding to recent CT there is expansile lesion posterior inferior right hepatic lobe measuring approximately 5.1 x 3.8 cm axial image 24 series 701 fairly isointense to liver on T1 and T2-weighted images that shows heteroge neous enhancement with a central ovoid area of nonenhancement corresponds to more T2 hyperintense por tion on MRI. There is linear rim type enhancement. There is second lesion anteriorly with capsular re traction that is also isodense on T1 and T2-weighted images with minimal peripheral type enhancement measuring 4.0 x 2.0 cm axial image 352 series 1201. These lesions may be slow growing since October 22, 2018 earlier study available. Surrounding hepatic ascites laterally is present. There is third les ion on MRI lateral segment left hepatic lobe measuring 2.0 cm long axis image 322 series 1201 without significant central enhancement. Exam noted suboptimal as there is contrast in main portal vein on p ostcontrast series 1. Main portal vein is not dilated. There are patent hepatic veins draining into I VC. Pancreas redemonstrates mild to moderate generalized atrophy . MRCP images show no suspicious extrahe patic or central intrahepatic biliary dilatation. Pancreatic duct is not dilated and thus not well ev aluated as there is significant artifact degradation, it is presumed within normal limits. OTHER: Splenomegaly is redemonstrated. Prominent splenic vessels or varices are again seen. There is no concerning renal mass or hydronephrosis. No suspicious bowel dilatation. Some ascites adjacent to spleen is redemonstrated. IMPRESSION: Nonspecific liver lesions based on MRI imaging characteristics but on background of cirrh osis and underlying portal hypertension with suggestion of enlargement since October 2018 study, mul tifocal hepatocellular carcinoma needs to be considered. A third lesion is present on MRI not clearly seen on CT.
[2019-04-15 16:13] LABS: Folate, Serum 11.2 ng/mL
--- NOTE | 2019-04-15 16:34 | PN ---
PROGRESS NOTE The patient is seen for followup for acute kidney injury. Her serum creatinine is down from about 2.0 on initial admission to 1.1 mg/dL. The patient denies any significant , the patient had high output from her ostomy and was volume depleted. She is status post IV fluids. PHYSICAL EXAMINATION: On examination today, blood pressure was 104/61, heart rate 65 per minute. Patient is afebrile. Examination of the heart S1, S2. Examination of the lungs, decreased breath sounds at the bases. Abdomen is soft, nontender. Exam of lower extremities shows no evidence of edema. LAB: Show sodium 138, potassium 4.2, CO2 is 19, BUN 20, serum creatinine 1.18, calcium 8.0. ASSESSMENT: 1. Acute kidney injury prerenal currently improved status post IV hydration. 2. Chronic kidney disease stage 3 secondary to nephrosclerosis. 3. Metabolic acidosis secondary to acute kidney injury and gastrointestinal fluid loss. 4. Hypomagnesemia status post replacement. PLAN: Continue with oral sodium bicarb. Repeat labs in a.m. MMODL / IJN: [id number] /
[2019-04-15 16:46] LABS: Glucose,Whole Blood 151 mg/dL (75-99)
[2019-04-15 20:41] LABS: Glucose,Whole Blood 175 mg/dL (75-99)
[2019-04-16 07:03] LABS: Glucose,Whole Blood 174 mg/dL (75-99)
[2019-04-16] MEDS: METOPROLOL TARTRATE 12.5 MG TAB PO SCH ×2 (07:42→21:58)
[2019-04-16] MEDS: buPROPion SR 150 MG TABLET.ER PO SCH (07:53)
[2019-04-16] MEDS: CHOLECALCIFEROL 1,000 UNIT TAB PO SCH (07:53)
[2019-04-16] MEDS: LACTULOSE 20 GM/30 ML CUP PO SCH ×3 (07:53→21:58)
[2019-04-16] MEDS: PANTOPRAZOLE 40 MG TABLET PO SCH (07:53)
[2019-04-16] MEDS: ASPIRIN 325 MG TAB PO SCH (07:53)
[2019-04-16] MEDS: NYSTATIN 100,000 UNIT/ML SUSP 500,000 UNIT/5 ML CUP PO SCH ×4 (07:53→21:57)
[2019-04-16] MEDS: MAGNESIUM OXIDE 400 MG TAB PO SCH (07:54)
[2019-04-16] MEDS: FERROUS SULFATE 325 MG TAB PO SCH ×2 (07:54→21:58)
[2019-04-16] MEDS: DICYCLOMINE 10 MG CAP PO SCH ×3 (07:54→21:57)
[2019-04-16] MEDS: RIFAXIMIN 550 MG TABLET PO SCH ×2 (07:54→21:59)
[2019-04-16] MEDS: MORPHINE SULFATE ER 15 MG TABLET PO SCH ×2 (07:54→21:57)
[2019-04-16] MEDS: SUCRALFATE 1 GM TAB PO SCH ×4 (07:54→21:57)
[2019-04-16] MEDS: POTASSIUM CHLORIDE ER 20 MEQ TAB.ER PO SCH (07:54)
[2019-04-16] MEDS: SODIUM BICARBONATE TAB 650 MG TAB PO SCH ×2 (07:54→21:58)
[2019-04-16] MEDS: INSULIN REGULAR 100 UNIT/ML VIAL SQ SCH ×3 (07:55→17:47)
[2019-04-16] MEDS: INSULIN NPH 300 UNIT/3 ML VIAL SQ SCH ×2 (07:55→17:47)
--- NOTE | 2019-04-16 09:54 | P.PN ---
Subjective Progress Note Date: 04/16/19 Charlene Keenan, is a 73-year-old female with known history of liver cirrhosis and hepatocellular carcinoma who presented to [facility] emergency room due to abnormal blood test that her primary care physician's office which revealed elevated troponin level. Patient was evaluated in the emergency room and was admitted to medical floor, nurse on the floor noticed that patient mental status is declining with more confusion, labs on presentation also revealed evidence of elevated troponin level, elevated BUN and creatinine, mildly elevated ammonia level at 32. Patient has history of recurrent admissions to [facility] due to her multiple medical problems, she has known history of coronary artery disease, diabetes mellitus, liver cirrhosis, hepatocellular carcinoma, h ypertension, chronic renal insufficiency, anemia, and history of diverticular disease with previous ileostomy placement. On 04/09/2019 patient was seen and examined on the medical floor she is alert slightly confused in no apparent distress there is no fever or chills no headache or dizziness no chest pain no shortness of breath no cough no nausea or vomiting no abdominal pain, she states her output through her ileostomy is more than usual, there is no burning was urination no frequency or urgency and no hematuria. On 04/10/2019 patient is alert and oriented 3. Patient's confusion slightly improved. Creatinine improving to 1.08. Neurology services are following. Patient denies chest pain or shortness breath. Patient denies nausea vomiting or diarrhea. Patient denies any urinary burning or frequency On 04/11/2019 patient is alert and oriented 3. Patient has no confusion. Amm onia level 34. Patient on lactulose. Cardiology an neurology services are following. EEG has been ordered per neurology. Patient denies chest pain or shortness of breath. Patient denies nausea vomiting or diarrhea. Patient denies any urinary burning or frequency On 04/12/2019 patient is alert and oriented 3. Ammonia level 17. Patient having temp of 101.1. Chest x-ray, UA and influenza ordered. Patient denies any chest pain or shortness of breath. Patient denies any nausea vomiting or diarrhea. Patient denies any urinary burning or frequency. On 04/13/2019 patient's alert and oriented 3. Patient complaining of increased nausea and vomiting. Patient also had episode of chest pain throughout. cardiology services will be consulted. CT of abdomen with oral contrast only will be ordered along with infectious disease consult. At this time patient is complaining of nausea here he patient denies chest pain. Patient denies urinary burning or frequency. On 04/14/2019 patient's alert and oriented 3. Infectious disease is following. Started patient on Azactam. Cultures pending. Oncology services also consulted. At this time patient denies chest pain or shortness breath. Patient denies nausea vomiting or diarrhea. Patient denies any urinary burning or frequency. Amylase and lipase within normal limits. On 04/15/2019 patient is alert and oriented 3. Patient has no confusion. Ammonia level 17. Patient on lactulose. infectious disease following, patient switched to Rocphin. Patient denies chest pain or shortness of breath. Patient denies nausea vomiting or diarrhea. Patient denies any urinary burning or frequency. On 04/16/2019 Patient was seen and examined on the medical floor, she is alert and oriented x 3 in no distress, there is no fever or chills no headache or dizziness no chest pain no shortness of breath no cough no nausea or vomiting no abdominal pain no diarrhea and no urinary symptoms Objective - Vital Signs Vital signs: Vital Signs Temp 98.4 F 04/16/19 05:00 Pulse 58 L 04/16/19 05:00 Resp 18 04/16/19 05:00 BP 107/65 04/16/19 05:00 Pulse Ox 99 04/16/19 05:00 Intake & Output 04/15/19 04/16/19 04/16/19 18:59 06:59 18:59 Intake Total 240 Output Total 4 Balance 236 Intake: Oral 240 Output: Stool 4 Other: Voiding Method Toilet Toilet # Voids 2 2 # Bowel Movements 1 1 - Exam In general patient is alert slightly confused in no apparent distress HEENT sclera was mild icterus otherwise normocephalic and atraumatic Neck is supple no JVD no goiter no lymphadenopathy Chest exam reveals a few scattered crackles no wheezing Cardiac exam reveals regular heart sounds no gallops no murmurs Abdomen is soft nontender no organomegaly with normal bowel sounds Extremity exam reveals no edema no cyanosis or clubbing Neurological examination reveals confusion otherwise no focal neurological deficit - Labs CBC & Chem 7: 04/15/19 09:13 04/15/19 09:13 Labs: Abnormal Lab Results - Last 24 Hours (Table) 04/15/19 04/15/1919 Range/Units 09:13 09:13 11:20 RBC 3.09 L (3.80-5.40) m/uL Hgb 10.7 L (11.4-16.0) gm/dL Hct 33.2 L (34.0-46.0) % MCV 107.4 H (80.0-100.0) fL Plt Count 52 L (150-450) k/uL Lymphocytes # 0.7 L (1.0-4.8) k/uL Chloride 115 H (98-107) mmol/L Carbon Dioxide 19 L (22-30) mmol/L BUN 20 H (7-17) mg/dL Creatinine 1.18 H (0.52-1.04) mg/dL Glucose 162 H (74-99) mg/dL POC Glucose (mg/dL) 165 H (75-99) mg/dL Calcium 8.0 L (8.4-10.2) mg/dL Total Bilirubin 1.5 H (0.2-1.3) mg/dL AST 57 H (14-36) U/L Alkaline Phosphatase 235 H (38-126) U/L Total Protein 5.3 L (6.3-8.2) g/dL Albumin 2.3 L (3.5-5.0) g/dL 04/15/19 04/15/19 04/16/19 Range/Units 16:44 20:40 07:02 RBC (3.80-5.40) m/uL Hgb (11.4-16.0) gm/dL Hct (34.0-46.0) % MCV (80.0-100.0) fL Plt Count (150-450) k/uL Lymphocytes # (1.0-4.8) k/uL Chloride (98-107) mmol/L Carbon Dioxide (22-30) mmol/L BUN (7-17) mg/dL Creatinine (0.52-1.04) mg/dL Glucose (74-99) mg/dL POC Glucose (mg/dL) 151 H 175 H 174 H (75-99) mg/dL Calcium (8.4-10.2) mg/dL Total Bilirubin (0.2-1.3) mg/dL AST (14-36) U/L Alkaline Phosphatase (38-126) U/L Total Protein (6.3-8.2) g/dL Albumin (3.5-5.0) g/dL Microbiology - Last 24 Hours (Table) 04/12/19 14:26 Blood Culture - Preliminary Blood No Growth after 72 hours Assessment and Plan Plan: #1 elevated troponin level, patient is denying any chest pain or shortness of breath or palpitation, doubt acute coronary syndrome, will check serial enzymes cardiology consult has been requested. 2-D echo completed showing EF of 50-55%. Patient was evaluated by cardiology services abnormality in troponin is chronically patient is not consistent with acute coronary syndrome. #2 mental status changes with confusion. Ammonia level 19. Head CT completed showing essentially stable exam no acute abnormalities evident. Age-related atrophy and probable chronic small vessel ischemia. Neurology services are following. EEG ordered. Carotid Doppler completed showing no Flow-limiting stenosis. EKG completed showing mild background slowing consistent with encephalopathy no epileptiform activity was seen. Per neurology no other neurological workup indicated at this time #3 chronic kidney disease stage III with acute on chronic renal failure. Creatinine improving to 1.20 and bun 19. Per nephrology hold Demadex and can resume every other day upon discharge #4 underlying history of diabetes mellitus type 2 #5 underlying history of liver cirrhosis, will add refaximin #6 underlying history of hepatocellular carcinoma patient was seen by oncology in the past #7 underlying history of hypertension #8. Febrile illness. Patient having temp of 101.1. UA negative. Chest x-ray no evidence for acute pulmonary disease. Dr. Esparza will be consulted. Patient started on Azactam. Cultures pending #9 nausea and vomiting. Amylase and lipase with in normal limits. CT of abdomen completed Dr. Estrada been consulted due to patient's known history of hepatocellular carcinoma #10. Chest pain. Troponins 0.120 0.108. Cardiology services were consulted, no intervention recommended at this point DVT prophylaxis SCDs due to chronic thrombocytopenia. GI prophylaxis Protonix Physical therapy consulted consulted. Social work services consult possible ECF Possible discharge to ECF tomorrow
[2019-04-16 11:26] LABS: Glucose,Whole Blood 169 mg/dL (75-99)
[2019-04-16 11:42] LABS: Basophils % (A) 0 %; Eosinophils # (A) 0.2 k/uL (0-0.7); Eosinophils % (A) 5 %; HCT 30.4 % (34.0-46.0); Lymphocytes # (A) 0.9 k/uL (1.0-4.8); Lymphocytes % (A) 22 %; MCH 34.7 pg (25.0-35.0); MCHC 32.8 g/dL (31.0-37.0); MCV 105.9 fL (80.0-100.0); Macrocytosis Moderate; Mean Platelet Volume 10.3; Monocytes # (A) 0.3 k/uL (0-1.0); Monocytes % (A) 8 %; Neutrophils # (A) 2.6 k/uL (1.3-7.7); Neutrophils % (A) 62 %; RBC 2.87 m/uL (3.80-5.40); RDW 15.3 % (11.5-15.5); WBC 4.3 k/uL (3.8-10.6)
[2019-04-16 11:58] LABS: Albumin 2.2 g/dL (3.5-5.0); Calcium 7.9 mg/dL (8.4-10.2); Potassium 4.4 mmol/L (3.5-5.1); Total Protein 5.1 g/dL (6.3-8.2)
[2019-04-16 12:05] LABS: Platelet Count 49 k/uL (150-450)
--- NOTE | 2019-04-16 14:56 | PN ---
PROGRESS NOTE Patient is seen for followup for acute kidney injury. The patient's creatinine has improved from about 2 on admission to 1.18 yesterday, today it is slightly up at 1.3. The patient denies any significant complaints. Her blood pressure has been on the lower side. She is not maintained on any nephrotoxic medications. The patient is eating fairly well. No IV fluids on board. PHYSICAL EXAMINATION: On examination, blood pressure was 105/55, heart rate 56 per minute. She is afebrile. Examination of the heart S1, S2. Examination of the lungs bilateral breath sounds are heard. Abdomen is soft, nontender. Exam of lower extremities shows no significant edema. CANVAS BASTER exam is grossly intact. LABS: Reveal sodium 136, potassium 4.4, chloride 114, BUN 19, serum creatinine 1.34, calcium 7.9, hemoglobin 10.0 g/dL. ASSESSMENT: 1. Acute kidney injury, improved since admission, mainly prerenal. Serum creatinine is up again slightly from yesterday. The patient is encouraged to increase oral intake of fluids. 2. Chronic kidney disease stage 3 secondary to nephrosclerosis. 3. Metabolic acidosis from gastrointestinal fluid loss and acute kidney injury, maintained on oral sodium bicarb and improved. 4. Hypokalemia, status post replacement. PLAN: Increase the fluids and repeat labs in a.m. Hold off on diuretics for now. MMODL / IJN: [id number] /
[2019-04-16] MEDS: ONDANSETRON 4 MG/2 ML VIAL IVP PRN (15:19)
[2019-04-16 17:15] LABS: Glucose,Whole Blood 76 mg/dL (75-99)
[2019-04-16 19:59] LABS: Glucose,Whole Blood 171 mg/dL (75-99)
--- NOTE | 2019-04-16 21:59 | P.PN ---
Progress Note - Text Progress Note Date: 04/16/19 PROGRESS NOTE DATE OF SERVICE: 04/16/2019 REASON FOR FOLLOWUP: Fever. INTERVAL HISTORY: The patient has been afebrile for more than 48 hours now. The patient has been breathing comfortably. Denies having any chest pain. No shortness of breath or cough. Patient is still complaining of some upper abdominal pain But no worsening did have some nausea but no vomiting. PHYSICAL EXAMINATION: Blood pressure 120/60, pulse of 60, temperature 98.2. She is 100% on room air. General description is an elderly female, up in bed in no distress. Respiratory system: Unlabored breathing. Clear to auscultation anteriorly. Heart S1, S2. Regular rate and rhythm. Abdomen soft, no tenderness. Extremities : No edema feet LABS:. Blood and urine cultures have been negative so far. MRI of the liver with possible malignancy no abscess DIAGNOSTIC IMPRESSION AND PLAN: Patient with fever in this patient who did have cirrhosis and hepatocellular carcinoma with a CT did show evidence of central necrosis, possible cause of her fever, possible cholangitis. MRI has been negative for any abscess Patient to continue with the Rocephin and Continue supportive care.
[2019-04-17 05:11] VITALS: TEMP 97.9
[2019-04-17 07:07] LABS: Glucose,Whole Blood 86 mg/dL (75-99)
[2019-04-17] MEDS: SODIUM BICARBONATE TAB 650 MG TAB PO SCH (09:06)
[2019-04-17] MEDS: MAGNESIUM OXIDE 400 MG TAB PO SCH (09:06)
[2019-04-17] MEDS: FERROUS SULFATE 325 MG TAB PO SCH (09:06)
[2019-04-17] MEDS: ASPIRIN 325 MG TAB PO SCH (09:06)
[2019-04-17] MEDS: PANTOPRAZOLE 40 MG TABLET PO SCH (09:06)
[2019-04-17] MEDS: POTASSIUM CHLORIDE ER 20 MEQ TAB.ER PO SCH (09:06)
[2019-04-17] MEDS: CHOLECALCIFEROL 1,000 UNIT TAB PO SCH (09:06)
[2019-04-17] MEDS: MORPHINE SULFATE ER 15 MG TABLET PO SCH (09:06)
[2019-04-17] MEDS: METOPROLOL TARTRATE 12.5 MG TAB PO SCH (09:09)
[2019-04-17] MEDS: DICYCLOMINE 10 MG CAP PO SCH ×2 (09:14→16:21)
[2019-04-17] MEDS: buPROPion SR 150 MG TABLET.ER PO SCH (09:14)
[2019-04-17] MEDS: SUCRALFATE 1 GM TAB PO SCH ×2 (09:14→12:51)
[2019-04-17] MEDS: NYSTATIN 100,000 UNIT/ML SUSP 500,000 UNIT/5 ML CUP PO SCH ×2 (09:14→12:51)
[2019-04-17] MEDS: RIFAXIMIN 550 MG TABLET PO SCH (09:15)
[2019-04-17] MEDS: INSULIN REGULAR 100 UNIT/ML VIAL SQ SCH ×2 (09:16→12:50)
[2019-04-17] MEDS: INSULIN NPH 300 UNIT/3 ML VIAL SQ SCH (09:16)
[2019-04-17 09:17] LABS: Albumin 2.6 g/dL (3.5-5.0); Calcium 8.5 mg/dL (8.4-10.2); Potassium 5.1 mmol/L (3.5-5.1); Total Bilirubin 1.3 mg/dL (0.2-1.3); Total Protein 5.9 g/dL (6.3-8.2)
[2019-04-17] MEDS: LACTULOSE 20 GM/30 ML CUP PO SCH ×2 (09:22→16:19)
--- NOTE | 2019-04-17 09:47 | P.PN ---
Subjective Patient is seen in follow-up for acute kidney injury. Renal function is relatively stable. Creatinine 1.21 today. She is tolerating oral intake. No vomiting. No edema. Patient's having significant amount of output from her ostomy due to taking lactulose. Vital signs are stable. General: The patient appeared well nourished and normally developed. HEENT: Head exam is unremarkable. Neck is without jugular venous distension. LUNGS: Lungs are clear to auscultation and percussion. Breath sounds decreased. HEART: Rate and Rhythm are regular. First and second heart sounds normal. No murmurs, rubs or gallops. ABDOMEN: Abdominal exam reveals normal bowel sounds. Non-tender and non- distended. No evidence of peritonitis. EXTREMITITES: No clubbing, cyanosis, or edema. Objective - Vital Signs Vital signs: Vital Signs Temp 97.9 F 04/17/19 05:00 Pulse 57 L 04/17/19 05:00 Resp 18 04/17/19 05:00 BP 109/62 04/17/19 05:00 Pulse Ox 98 04/17/19 05:00 Intake & Output 04/16/19 04/17/19 04/17/19 18:59 06:59 18:59 Intake Total 1430 Balance 1430 Intake: Intake, IV Titration 50 Amount cefTRIAXone 1 gm In 50 Sodium Chloride 0.9% 50 ml @ 100 mls/hr IVPB Q24H [facility] Rx#:[id number] Oral 1380 Other: Voiding Method Toilet Toilet # Voids 3 2 # Bowel Movements 2 - Labs CBC & Chem 7: 04/16/19 10:52 04/17/19 08:34 Labs: Abnormal Lab Results - Last 24 Hours (Table) 04/16/19 04/16/19 04/16/19 Range/Units 10:52 10:52 10:52 RBC 2.87 L (3.80-5.40) m/uL Hgb 10.0 L (11.4-16.0) gm/dL Hct 30.4 L (34.0-46.0) % MCV 105.9 H (80.0-100.0) fL Plt Count 49 L (150-450) k/uL Lymphocytes # 0.9 L (1.0-4.8) k/uL Sodium 136 L (137-145) mmol/L Chloride 114 H (98-107) mmol/L Carbon Dioxide 19 L (22-30) mmol/L BUN 19 H (7-17) mg/dL Creatinine 1.34 H (0.52-1.04) mg/dL Glucose 175 H (74-99) mg/dL POC Glucose (mg/dL) (75-99) mg/dL Calcium 7.9 L (8.4-10.2) mg/dL AST 50 H (14-36) U/L Alkaline Phosphatase 239 H (38-126) U/L Ammonia 85 H (<30) umol/L Total Protein 5.1 L (6.3-8.2) g/dL Albumin 2.2 L (3.5-5.0) g/dL 04/16/19 04/16/19 04/17/19 Range/Units 11:24 19:58 08:34 RBC (3.80-5.40) m/uL Hgb (11.4-16.0) gm/dL Hct (34.0-46.0) % MCV (80.0-100.0) fL Plt Count (150-450) k/uL Lymphocytes # (1.0-4.8) k/uL Sodium (137-145) mmol/L Chloride 115 H (98-107) mmol/L Carbon Dioxide 20 L (22-30) mmol/L BUN 20 H (7-17) mg/dL Creatinine 1.21 H (0.52-1.04) mg/dL Glucose 120 H (74-99) mg/dL POC Glucose (mg/dL) 169 H 171 H (75-99) mg/dL Calcium (8.4-10.2) mg/dL AST 62 H (14-36) U/L Alkaline Phosphatase 276 H (38-126) U/L Ammonia (<30) umol/L Total Protein 5.9 L (6.3-8.2) g/dL Albumin 2.6 L (3.5-5.0) g/dL 04/17/19 Range/Units 08:34 RBC (3.80-5.40) m/uL Hgb (11.4-16.0) gm/dL Hct (34.0-46.0) % MCV (80.0-100.0) fL Plt Count (150-450) k/uL Lymphocytes # (1.0-4.8) k/uL Sodium (137-145) mmol/L Chloride (98-107) mmol/L Carbon Dioxide (22-30) mmol/L BUN (7-17) mg/dL Creatinine (0.52-1.04) mg/dL Glucose (74-99) mg/dL POC Glucose (mg/dL) (75-99) mg/dL Calcium (8.4-10.2) mg/dL AST (14-36) U/L Alkaline Phosphatase (38-126) U/L Ammonia 36 H (<30) umol/L Total Protein (6.3-8.2) g/dL Albumin (3.5-5.0) g/dL Microbiology - Last 24 Hours (Table) 04/12/19 14:26 Blood Culture - Preliminary Blood No Growth after 96 hours Assessment and Plan Plan: Assessment: 1. Acute kidney injury mostly prerenal secondary to high output from the ostomy as well as diuretics. Renal function is improved since admission. Creatinine 1.21 today. Baseline creatinine near 1. 2. Metabolic acidosis secondary to acute kidney injury and GI losses. Better. Maintained on oral sodium bicarbonate. 3. Insulin-dependent diabetes mellitus. 4. History of hepatocellular carcinoma and liver cirrhosis. 5. Hypomagnesemia secondary to GI losses and diuretics. Status post replacemen t. Better. 6. Hypokalemia secondary to diuretics. Status post replacement. Better. Potassium is slightly on the higher side today. I will discontinue potassium supplementation. Plan: Hold Demadex - can resume every other day upon discharge. Encourage oral intake. Avoid nephrotoxins. Discontinue potassium supplementation.
[2019-04-17 09:52] LABS: Basophils % (A) 0 %; Eosinophils # (A) 0.2 k/uL (0-0.7); Eosinophils % (A) 5 %; HCT 36.7 % (34.0-46.0); HGB 11.6 gm/dL (11.4-16.0); Lymphocytes # (A) 1.2 k/uL (1.0-4.8); Lymphocytes % (A) 27 %; MCH 34.5 pg (25.0-35.0); MCHC 31.6 g/dL (31.0-37.0); MCV 109.4 fL (80.0-100.0); Macrocytosis Marked; Mean Platelet Volume 10.2; Monocytes # (A) 0.3 k/uL (0-1.0); Monocytes % (A) 8 %; Neutrophils # (A) 2.6 k/uL (1.3-7.7); Neutrophils % (A) 57 %; RBC 3.36 m/uL (3.80-5.40); RDW 14.8 % (11.5-15.5); WBC 4.6 k/uL (3.8-10.6)
[2019-04-17 10:09] LABS: Platelet Count 79 k/uL (150-450)
[2019-04-17 11:05] LABS: Glucose,Whole Blood 236 mg/dL (75-99)
[2019-04-17 11:41] LABS: Anisocytosis (M) Present
[2019-04-17 12:15] VITALS: BP 100/61; PULSE 56; RESP 17
--- NOTE | 2019-04-17 14:47 | P.DS ---
Providers Date of admission: 04/09/19 12:38 Expected date of discharge: 04/17/19 Attending physician: Artemio Lea Consults: 04/07/19 18:46 Consult Physician Routine Consulting Provider: Macey Urrutia Consult Reason/Comments: sondra Do you want consulting provider notified?: Yes Consult Physician Urgent Consulting Provider: Yuri Keith Consult Reason/Comments: elevated troponin Do you want consulting provider notified?: Yes 04/09/19 11:03 Consult Physician Routine Consulting Provider: Shukri De La Rosa Consult Reason/Comments: mental status changes Do you want consulting provider notified?: Yes 04/13/19 10:43 Consult Physician Routine Consulting Provider: Yuri Keith Consult Reason/Comments: chest pain Do you want consulting provider notified?: Yes Consult Physician Routine Consulting Provider: Jaylene Esparza Consult Reason/Comments: febrile illness Do you want consulting provider notified?: Yes 04/13/19 15:47 Consult Physician Routine Consulting Provider: Cem Estrada Consult Reason/Comments: CT of abdomen, increased confusion Do you want consulting provider notified?: Yes Primary care physician: Gilma Martinez Hospital Course: Discharge Diagnosis #1 elevated troponin level, patient is denying any chest pain or shortness of breath or palpitation, doubt acute coronary syndrome, will check serial enzymes cardiology consult has been requested. 2-D echo completed showing EF of 50-55%. Patient was evaluated by cardiology services abnormality in troponin is chronically patient is not consistent with acute coronary syndrome. #2 mental status changes with confusion. Ammonia level 19. Head CT completed showing essentially stable exam no acute abnormalities evident. Age-related atrophy and probable chronic small vessel ischemia. Neurology services are following. EEG ordered. Carotid Doppler completed showing no Flow-limiting stenosis. EKG completed showing mild background slowing consistent with encephalopathy no epileptiform activity was seen. Per neurology no other neurological workup indicated at this time #3 chronic kidney disease stage III with acute on chronic renal failure. Creatinine improving to 1.20 and bun 19. Per nephrology hold Demadex and can resume every other day upon discharge #4 underlying history of diabetes mellitus type 2 #5 underlying history of liver cirrhosis, will add refaximin #6 underlying history of hepatocellular carcinoma patient was seen by oncology in the past. Evaluate oncology services. MRI was reviewed no further planned at this time patient to follow-up outpatient #7 underlying history of hypertension #8. Febrile illness. Patient having temp of 101.1. UA negative. Chest x-ray no evidence for acute pulmonary disease. Dr. Esparza will be consulted. Patient started on Azactam. Patient will be discharged on Ceftin for 7 more days #9 nausea and vomiting. Amylase and lipase with in normal limits. CT of abdomen completed Dr. Estrada been consulted due to patient's known history of hepatocellular carcinoma #10. Chest pain. Troponins 0.120 0.108. Cardiology services were consulted, no intervention recommended at this point Hospital Course Charlene Keenan, is a 73-year-old female with known history of liver cirrhosis and hepatocellular carcinoma who presented to [facility] emergency room due to abnormal blood test that her primary care physician's office which revealed elevated troponin level. Patient was evaluated in the emergency room and was admitted to medical floor, nurse on the floor noticed that patient mental status is declining with more confusion, labs on presentation also revealed evidence of elevated troponin level, elevated BUN and creatinine, mildly elevated ammonia level at 32. Patient has history of recurrent admissions to [facility] due to her multiple medical problems, she has known history of coronary artery disease, diabetes mellitus, liver cirrhosis, hepatocellular carcinoma, hypertension, chronic renal insufficiency, anemia, and history of diverticular disease with previous ileostomy placement. On 04/09/2019 patient was seen and examined on the medical floor she is alert slightly confused in no apparent distress there is no fever or chills no headache or dizziness no chest pain no shortness of breath no cough no nausea or vomiting no abdominal pain, she states her output through her ileostomy is more than usual, there is no burning was urination no frequency or urgency and no hematuria. On 04/10/2019 patient is alert and oriented 3. Patient's confusion slightly improved. Creatinine improving to 1.08. Neurology services are following. Patient denies chest pain or shortness breath. Patient denies nausea vomiting or diarrhea. Patient denies any urinary burning or frequency On 04/11/2019 patient is alert and oriented 3. Patient has no confusion. Ammonia level 34. Patient on lactulose. Cardiology an neurology services are following. EEG has been ordered per neurology. Patient denies chest pain or shortness of breath. Patient denies nausea vomiting or diarrhea. Patient denies any urinary burning or frequency On 04/12/2019 patient is alert and oriented 3. Ammonia level 17. Patient having temp of 101.1. Chest x-ray, UA and influenza ordered. Patient denies any chest pain or shortness of breath. Patient denies any nausea vomiting or diarrhea. Patient denies any urinary burning or frequency. On 04/13/2019 patient's alert and oriented 3. Patient complaining of increased nausea and vomiting. Patient also had episode of chest pain throughout. cardiology services will be consulted. CT of abdomen with oral contrast only will be ordered along with infectious disease consult. At this time patient is complaining of nausea here he patient denies chest pain. Patient denies urinary burning or frequency. On 04/14/2019 patient's alert and oriented 3. Infectious disease is following. Started patient on Azactam. Cultures pending. Oncology services also consulted. At this time patient denies chest pain or shortness breath. Patient denies nausea vomiting or diarrhea. Patient denies any urinary burning or frequency. Amylase and lipase within normal limits. On 04/15/2019 patient is alert and oriented 3. Patient has no confusion. Ammonia level 17. Patient on lactulose. infectious disease following, patient switched to [place]. Patient denies chest pain or shortness of breath. Patient denies nausea vomiting or diarrhea. Patient denies any urinary burning or frequency. On 04/16/2019 Patient was seen and examined on the medical floor, she is alert and oriented x 3 in no distress, there is no fever or chills no headache or dizziness no chest pain no shortness of breath no cough no nausea or vomiting no abdominal pain no diarrhea and no urinary symptoms On 04/17/2019 patient's alert and oriented 3. Patient has been afebrile. Infectious disease recommending discharged with Ceftin for one week. Patient has been cleared by oncology services. At this time patient denies chest pain or shortness. Patient denies nausea vomiting or diarrhea. Patient denies urinary burning or frequency. I performed an examination of the patient and discussed their management with the Nurse Practitioner. I have reviewed the Nurse Practitioner's notes and agree with the documented findings and plan of care Patient Condition at Discharge: Fair Plan - Discharge Summary New Discharge Prescriptions: No Action Sucralfate [Carafate] 1 gm PO QID Omeprazole [PriLOSEC] 20 mg PO BID Insulin Regular, Human [NovoLIN R] 10 unit SQ AC-TID buPROPion SR [Wellbutrin SR] 150 mg PO DAILY #30 tablet.er Magnesium Oxide [William] 500 mg PO DAILY Torsemide [Demadex] 20 mg PO DAILY 30 Days #30 tab Cholecalciferol [Vitamin D3 (25 Mcg = 1000 Iu)] 4,000 unit PO DAILY Ferrous Sulfate [Iron (65 MG Elemental)] 325 mg PO BID Insulin NPH [humuLIN N] 18 unit SQ BID vial clonazePAM [KlonoPIN] 0.5 mg PO DAILY PRN #3 tab PRN Reason: Anxiety Morphine Sulfate ER [Ms Contin] 15 mg PO Q12HR 3 Days #6 tablet Dicyclomine [Bentyl] 20 mg PO TID 30 Days #180 cap Metoprolol Tartrate [Lopressor] 12.5 mg PO BID #0 tab Potassium Chloride [K-Tab ER] 20 meq PO DAILY 3 Days #3 tablet.er Baclofen [Lioresal] 5 mg PO TID PRN #10 tablet PRN Reason: neck pain Lactulose [Cephulac] 45 gm PO TID Discharge Medication List Omeprazole [PriLOSEC] 20 mg PO BID 10/23/18 [History] Sucralfate [Carafate] 1 gm PO QID 10/23/18 [History] Insulin Regular, Human [NovoLIN R] 10 unit SQ AC-TID 10/24/18 [History] buPROPion SR [Wellbutrin SR] 150 mg PO DAILY #30 tablet.er 12/21/18 [Rx] Magnesium Oxide [William] 500 mg PO DAILY 12/30/18 [History] Torsemide [Demadex] 20 mg PO DAILY 30 Days #30 tab 01/09/19 [Rx] Cholecalciferol [Vitamin D3 (25 Mcg = 1000 Iu)] 4,000 unit PO DAILY 01/16/19 [History] Ferrous Sulfate [Iron (65 MG Elemental)] 325 mg PO BID 01/31/19 [History] Insulin NPH [humuLIN N] 18 unit SQ BID vial 02/06/19 [Rx] Morphine Sulfate ER [Ms Contin] 15 mg PO Q12HR 3 Days #6 tablet 03/06/19 [Rx] clonazePAM [KlonoPIN] 0.5 mg PO DAILY PRN #3 tab 03/06/19 [Rx] Dicyclomine [Bentyl] 20 mg PO TID 30 Days #180 cap 03/31/19 [Rx] Metoprolol Tartrate [Lopressor] 12.5 mg PO BID #0 tab 03/31/19 [Rx] Baclofen [Lioresal] 5 mg PO TID PRN #10 tablet 04/03/19 [Rx] Potassium Chloride [K-Tab ER] 20 meq PO DAILY 3 Days #3 tablet.er 04/03/19 [Rx] Lactulose [Cephulac] 45 gm PO TID 04/07/19 [History] Follow up Appointment(s)/Referral(s): Wilver Lux MD [STAFF PHYSICIAN] - 2 Weeks Gilma Martinez MD [Primary Care Provider] - 1-2 days
[2019-04-17 17:13] LABS: Glucose,Whole Blood 68 mg/dL (75-99)
[2019-04-17 17:28] LABS: Glucose,Whole Blood 109 mg/dL (75-99)
--- NOTE | 2019-04-17 19:36 | P.PN ---
Subjective Progress Note Date: 04/17/19 Principal diagnosis: abd pain, intractable N,V In follow-up today patient has complaints of persistent pain at the ostomy site. She also has nausea and vomiting that is a little bit better since her admission. We did go over the results of her MRI. Objective - Vital Signs Vital signs: Vital Signs Temp 97.9 F 04/17/19 12:14 Pulse 56 L 04/17/19 12:14 Resp 17 04/17/19 12:14 BP 100/61 04/17/19 12:14 Pulse Ox 100 04/17/19 12:14 Intake & Output 04/17/19 04/17/19 04/18/19 06:59 18:59 06:59 Intake Total 1430 580 Balance 1430 580 Intake: Intake, IV Titration 50 Amount cefTRIAXone 1 gm In 50 Sodium Chloride 0.9% 50 ml @ 100 mls/hr IVPB Q24H [facility] Rx#:[id number] Oral 1380 580 Other: Voiding Method Toilet # Voids 2 2 # Bowel Movements 2 - Constitutional General appearance: Present: average body habitus, cooperative, no acute distress - EENT Eyes: Present: anicteric sclerae, EOMI ENT: Present: hearing grossly normal - Respiratory Respiratory: bilateral: CTA - Cardiovascular Heart sounds: normal: S1, S2 - Gastrointestinal General gastrointestinal: Present: normal bowel sounds, soft, tenderness - Neurologic Neurologic: Present: CNII-XII intact - Musculoskeletal Musculoskeletal: Present: strength equal bilaterally - Psychiatric Psychiatric: Present: A&O x's 3, appropriate affect, intact judgment & insight - Labs CBC & Chem 7: 04/17/19 08:34 04/17/19 08:34 Labs: Abnormal Lab Results - Last 24 Hours (Table) 04/16/19 04/17/19 04/17/19 Range/Units 19:58 08:34 08:34 RBC 3.36 L (3.80-5.40) m/uL MCV 109.4 H (80.0-100.0) fL Plt Count 79 L D (150-450) k/uL Macrocytosis Marked A Chloride 115 H (98-107) mmol/L Carbon Dioxide 20 L (22-30) mmol/L BUN 20 H (7-17) mg/dL Creatinine 1.21 H (0.52-1.04) mg/dL Glucose 120 H (74-99) mg/dL POC Glucose (mg/dL) 171 H (75-99) mg/dL AST 62 H (14-36) U/L Alkaline Phosphatase 276 H (38-126) U/L Ammonia (<30) umol/L Total Protein 5.9 L (6.3-8.2) g/dL Albumin 2.6 L (3.5-5.0) g/dL 04/17/19 04/17/19 04/17/19 Range/Units 08:34 11:03 17:06 RBC (3.80-5.40) m/uL MCV (80.0-100.0) fL Plt Count (150-450) k/uL Macrocytosis Chloride (98-107) mmol/L Carbon Dioxide (22-30) mmol/L BUN (7-17) mg/dL Creatinine (0.52-1.04) mg/dL Glucose (74-99) mg/dL POC Glucose (mg/dL) 236 H 68 L (75-99) mg/dL AST (14-36) U/L Alkaline Phosphatase (38-126) U/L Ammonia 36 H (<30) umol/L Total Protein (6.3-8.2) g/dL Albumin (3.5-5.0) g/dL 04/17/19 Range/Units 17:26 RBC (3.80-5.40) m/uL MCV (80.0-100.0) fL Plt Count (150-450) k/uL Macrocytosis Chloride (98-107) mmol/L Carbon Dioxide (22-30) mmol/L BUN (7-17) mg/dL Creatinine (0.52-1.04) mg/dL Glucose (74-99) mg/dL POC Glucose (mg/dL) 109 H (75-99) mg/dL AST (14-36) U/L Alkaline Phosphatase (38-126) U/L Ammonia (<30) umol/L Total Protein (6.3-8.2) g/dL Albumin (3.5-5.0) g/dL Microbiology - Last 24 Hours (Table) 04/12/19 14:26 Blood Culture - Preliminary Blood No Growth after 120 hours - Imaging and Cardiology MRI - abdomen: report reviewed Assessment and Plan (1) Hepatocellular carcinoma Narrative/Plan: Lesions of the liver on the MRI are nonspecific. Recommendation is a repeat MRI in 2 months. Status: Chronic Priority: Medium Code(s): C22.0 - LIVER CELL CARCINOMA SNOMED Code(s): 843762666 Plan: Have discussed with patient that she should see the surgeon who created her ostomy for the pain that she is experiencing at the site. The persistent nausea and vomiting unfortunately there has not had an underlying cause identified. Patient encouraged to keep all of her appointments as scheduled with all the different providers she has. Patient has not followed with us since December of this year. Patient's daughter told our office at that time that she would be seeing a different Oncology provider.
--- NOTE | 2019-04-17 23:08 | P.PN ---
Progress Note - Text Progress Note Date: 04/17/19 PROGRESS NOTE DATE OF SERVICE: 04/17/2019 REASON FOR FOLLOWUP: Fever. INTERVAL HISTORY: The patient is afebrile. The patient has been breathing comfortably. The patient having any chest pain. No shortness of breath or cough. Patient upper abdominal pain has improved and he currently denies any nausea or vomiting and no diarrhea PHYSICAL EXAMINATION: Blood pressure 110/60, pulse of 70, temperature 98.2. She is 100% on room air. General description is an elderly female, up in bed in no distress. Respiratory system: Unlabored breathing. Clear to auscultation anteriorly. Heart S1, S2. Regular rate and rhythm. Abdomen soft, no tenderness. Extremities : No edema feet LABS:. Blood and urine cultures have been negative so far. MRI of the liver with possible malignancy no abscess, white count is normal DIAGNOSTIC IMPRESSION AND PLAN: Patient with fever in this patient who did have cirrhosis and hepatocellular carcinoma with a CT did show evidence of central necrosis, possible cause of her fever, possible cholangitis. MRI has been negative for any abscess, Patient culture has been negative and fever has resolved, to finish therapy With a short course of oral Ceftin, plan of care was discussed with admitting team
== END 2019-04-17 17:55 | DRG 682 ==
LOC: EC 16:27 → 3NMEDONC 18:46 → OBSVTOIN 04-09 12:38
PROVIDERS: ADMIT Internal Medicine; ATTEND Internal Medicine
DX: N17.9 Acute kidney failure, unspecified (principal); G93.41 Metabolic encephalopathy; C22.0 Liver cell carcinoma; E87.2 Acidosis; D61.818 Other pancytopenia; R18.8 Other ascites; R77.8 Other specified abnormalities of plasma proteins; D53.9 Nutritional anemia, unspecified; I12.9 Hypertensive chronic kidney disease with stage 1 through stage 4 chronic kidney disease, or unspecified chronic kidney disease; K21.9 Gastro-esophageal reflux disease without esophagitis; F41.9 Anxiety disorder, unspecified; F32.9 Major depressive disorder, single episode, unspecified; E66.9 Obesity, unspecified; E83.42 Hypomagnesemia; E87.6 Hypokalemia; D73.1 Hypersplenism; G89.29 Other chronic pain; I35.0 Nonrheumatic aortic (valve) stenosis; I45.10 Unspecified right bundle-branch block; K72.90 Hepatic failure, unspecified without coma; I25.10 Atherosclerotic heart disease of native coronary artery without angina pectoris; E11.22 Type 2 diabetes mellitus with diabetic chronic kidney disease; N18.3 Chronic kidney disease, stage 3 (moderate); K74.60 Unspecified cirrhosis of liver; E86.9 Volume depletion, unspecified; T50.2X5A Adverse effect of carbonic-anhydrase inhibitors, benzothiadiazides and other diuretics, initial encounter; Z68.27 Body mass index [BMI] 27.0-27.9, adult; Z79.4 Long term (current) use of insulin; Z79.899 Other long term (current) drug therapy; Z88.0 Allergy status to penicillin; Z88.8 Allergy status to other drugs, medicaments and biological substances; I25.2 Old myocardial infarction; Z87.440 Personal history of urinary (tract) infections; Z86.14 Personal history of Methicillin resistant Staphylococcus aureus infection; Z87.891 Personal history of nicotine dependence; Z92.21 Personal history of antineoplastic chemotherapy; Z79.82 Long term (current) use of aspirin; Z87.11 Personal history of peptic ulcer disease; Z93.2 Ileostomy status; Z90.710 Acquired absence of both cervix and uterus; Z82.49 Family history of ischemic heart disease and other diseases of the circulatory system
CPT/HCPCS: 36415; 70450; 71046; 74176; 74183; 80048; 80053; 80061; 81003; 82140; 82150; 82550; 82607; 82746; 83690; 83735; 83921; 84484; 85025; 85610; 85730; 87040; 87086; 87502; 93005; 93308; 93880; 93970; 94760; 95819; 96360; 96361; 99285

== ENCOUNTER 2019-04-25 19:39 | Emergency (ER) | payer MEDICARE ==
[2019-04-25] MEDS ORDERED: FUROSEMIDE 10 MG/ML 4 ML VIAL IV STA (20:12)
[2019-04-25] MEDS ORDERED: LORazepam 2 MG/ML INJ IV STA (20:12)
--- NOTE | 2019-04-25 20:21 | ED ---
Extremity Problem HPI - General Chief complaint: Extremity Problem,Nontraumatic Stated complaint: Leg Swelling,Abd Pain Time Seen by Provider: 04/25/19 19:55 Source: patient, EMS, RN notes reviewed, old records reviewed Mode of arrival: EMS Limitations: no limitations - History of Present Illness Initial comments: This is a 73-year-old female the ER for evaluation. Patient mainly complaining of anxiety, nervousness nervousness lower extremity swelling. No chest pain no shortness of breath no abdominal pain no recent travel history no sick contacts. Patient states she does get anxious due to stresses at home. But denies any significant thoughts of homicide or suicide no drug or alcohol abuse MD Complaint: other (Extremity swelling lower extremities) Location: left, right, lower extremity, bilateral lower extremity History of Same: Yes Radiation: none Severity scale (1-10): 2 Consistency: constant Improves with: nothing Worsens with: nothing Associated Symptoms: denies other symptoms - Related Data Home Medications Medication Instructions Recorded Confirmed Omeprazole [PriLOSEC] 20 mg PO BID 10/23/18 04/25/19 Sucralfate [Carafate] 1 gm PO QID 10/23/18 04/25/19 Insulin Regular, Human [NovoLIN R] 10 unit SQ AC-TID 10/24/18 04/25/19 Magnesium Oxide [William] 500 mg PO DAILY 12/30/18 04/25/19 Cholecalciferol [Vitamin D3 (25 4,000 unit PO DAILY 01/16/19 04/25/19 Mcg = 1000 Iu)] Ferrous Sulfate [Iron (65 MG 325 mg PO BID 01/31/19 04/25/19 Elemental)] Lactulose [Cephulac] 45 gm PO TID 04/07/19 04/25/19 Potassium Chloride [Klor-Con 20] 20 meq PO DAILY 04/21/19 04/25/19 Previous Rx's Medication Instructions Recorded buPROPion SR [Wellbutrin SR] 150 mg PO DAILY #30 tablet.er 12/21/18 Insulin NPH [humuLIN N] 18 unit SQ BID vial 02/06/19 Dicyclomine [Bentyl] 20 mg PO TID 30 Days #180 cap 03/31/19 Metoprolol Tartrate [Lopressor] 12.5 mg PO BID #0 tab 03/31/19 Morphine Sulfate ER [Ms Contin] 15 mg PO Q12HR 3 Days #6 tablet 04/17/19 Rifaximin [Xifaxan] 550 mg PO BID tablet 04/17/19 Sodium Bicarbonate Tab 1,300 mg PO BID tab 04/17/19 Torsemide [Demadex] 20 mg PO Q48H 30 Days #30 tab 04/17/19 Allergies Allergy/AdvReac Type Severity Reaction Status Date / Time amlodipine Allergy Rash/Hives Verified 04/25/19 20:10 oxycodone Allergy Rash/Hives Verified 04/25/19 20:10 Penicillins Allergy Rash/Hives Verified 04/25/19 20:10 hydromorphone [From Dilaudid] AdvReac Mild tactile Verified 04/25/19 20:10 disturbance GREG Inhibitors AdvReac Cough Verified 04/25/19 20:10 sodium dodecyclbenzene Allergy Rash/Hives Uncoded 04/21/19 15:45 sulfonate Review of Systems ROS Statement: Those systems with pertinent positive or pertinent negative responses have been documented in the HPI. ROS Other: All systems not noted in ROS Statement are negative. Past Medical History Past Medical History: Cancer, Diabetes Mellitus, GERD/Reflux, Hypertension, Liver Disease, Myocardial Infarction (AL), Renal Disease Additional Past Medical History / Comment(s): Hepatocellular liver cancer with chemo immobilization-last time being 2017, ascities with paracentesis's , nonalcoholic liver cirrhosis, chronic pancytopenia, chronic elevated ammonia levels, hepatic encephalopathy, chronic elevated LFTs, chronic abdominal pain, stomach ulcer, diverticular disease with ileostomy, IDDM type II, iron anemia, CKD stage III, nonsustained vtach, UTI, high ammonia levels Last Myocardial Infarction Date:: unk History of Any Multi-Drug Resistant Organisms: MRSA Date of last positivie culture/infection: 12/30/18 MDRO Source:: Urine Past Surgical History: Appendectomy, Bowel Resection, Section, Cholecystectomy, Hysterectomy, Tonsillectomy Additional Past Surgical History / Comment(s): Chemo immobilizations, liver biopsies, paracentesis, bowel resection d/t diverticulitis/ileostomy, R rotator cuff repair, carpal tunnel release-laterality unknown. Past Anesthesia/Blood Transfusion Reactions: No Reported Reaction Past Psychological History: Anxiety, Depression Smoking Status: Former smoker Past Alcohol Use History: None Reported Past Drug Use History: None Reported - Past Family History Mother History Unknown: Yes Family Medical History: Congestive Heart Failure (CHF) Additional Family Medical History / Comment(s): Mother is 94 yrs old. Father Family Medical History: Chest Pain / Angina Additional Family Medical History / Comment(s): Father is . General Exam Limitations: no limitations General appearance: alert, in no apparent distress Head exam: Present: atraumatic, normocephalic, normal inspection Eye exam: Present: normal appearance, PERRL, EOMI. Absent: scleral icterus, conjunctival injection, periorbital swelling ENT exam: Present: normal exam, mucous membranes moist Neck exam: Present: normal inspection. Absent: tenderness, meningismus, lymphadenopathy Respiratory exam: Present: normal lung sounds bilaterally. Absent: respiratory distress, wheezes, rales, rhonchi, stridor Cardiovascular Exam: Present: regular rate, normal rhythm, normal heart sounds. Absent: systolic murmur, diastolic murmur, rubs, gallop, clicks GI/Abdominal exam: Present: soft, normal bowel sounds. Absent: distended, tenderness, guarding, rebound, rigid Extremities exam: Present: normal inspection, full ROM, normal capillary refill. Absent: tenderness, pedal edema, joint swelling, calf tenderness Back exam: Present: normal inspection Neurological exam: Present: alert, oriented X3, CN II-XII intact Psychiatric exam: Present: normal affect, normal mood Skin exam: Present: warm, dry, intact, normal color. Absent: rash Course Vital Signs 04/25/19 04/25/19 19:43 21:36 Temperature 98.7 F 98 F Pulse Rate 64 67 Respiratory 16 18 Rate Blood Pressure 125/63 117/54 O2 Sat by Pulse 100 100 Oximetry - Reevaluation(s) Reevaluation #1: 04/25/19 21:41 Medical record is reviewed Reevaluation #2: 04/25/19 21:41 Lab values are significantly similar to prior lab values Medical Decision Making - Medical Decision Making 73 female the ER for evaluation. Patient has lower extremity edema but mainly here for anxiety state. Lab values are consistent with prior lab values and patient can be discharged home - Lab Data Result diagrams: 04/25/19 20:15 04/25/19 20:15 Lab Results 04/25/19 04/25/19 04/25/19 Range/Units 20:15 20:15 20:15 WBC 5.5 (3.8-10.6) k/uL RBC 3.33 L (3.80-5.40) m/uL Hgb 11.5 (11.4-16.0) gm/dL Hct 35.5 (34.0-46.0) % MCV 106.7 H (80.0-100.0) fL MCH 34.4 (25.0-35.0) pg MCHC 32.2 (31.0-37.0) g/dL RDW 14.9 (11.5-15.5) % Plt Count 111 L (150-450) k/uL Neutrophils % 74 % Lymphocytes % 15 % Monocytes % 6 % Eosinophils % 2 % Basophils % 0 % Neutrophils # 4.1 (1.3-7.7) k/uL Lymphocytes # 0.8 L (1.0-4.8) k/uL Monocytes # 0.3 (0-1.0) k/uL Eosinophils # 0.1 (0-0.7) k/uL Basophils # 0.0 (0-0.2) k/uL Macrocytosis Moderate PT (9.0-12.0) sec INR (<1.2) APTT (22.0-30.0) sec Sodium 137 (137-145) mmol/L Potassium 3.9 (3.5-5.1) mmol/L Chloride 110 H (98-107) mmol/L Carbon Dioxide 19 L (22-30) mmol/L Anion Gap 8 mmol/L BUN 12 (7-17) mg/dL Creatinine 1.07 H (0.52-1.04) mg/dL Est GFR (CKD-EPI)AfAm 61 (>60 ml/min/1.73 sqM) Est GFR (CKD-EPI)NonAf 53 (>60 ml/min/1.73 sqM) Glucose 288 H (74-99) mg/dL Plasma Lactic Acid Carlos 2.5 H* (0.7-2.0) mmol/L Calcium 8.3 L (8.4-10.2) mg/dL Phosphorus 2.4 L (2.5-4.5) mg/dL Magnesium 1.7 (1.6-2.3) mg/dL Total Bilirubin 2.3 H (0.2-1.3) mg/dL AST 77 H (14-36) U/L ALT 39 (9-52) U/L Alkaline Phosphatase 350 H (38-126) U/L Creatine Kinase 358 H (30-135) U/L Troponin I (0.000-0.034) ng/mL NT-Pro-B Natriuret Pep pg/mL Total Protein 6.1 L (6.3-8.2) g/dL Albumin 2.7 L (3.5-5.0) g/dL 04/25/19 04/25/19 04/25/19 Range/Units 20:15 20:15 20:15 WBC (3.8-10.6) k/uL RBC (3.80-5.40) m/uL Hgb (11.4-16.0) gm/dL Hct (34.0-46.0) % MCV (80.0-100.0) fL MCH (25.0-35.0) pg MCHC (31.0-37.0) g/dL RDW (11.5-15.5) % Plt Count (150-450) k/uL Neutrophils % % Lymphocytes % % Monocytes % % Eosinophils % % Basophils % % Neutrophils # (1.3-7.7) k/uL Lymphocytes # (1.0-4.8) k/uL Monocytes # (0-1.0) k/uL Eosinophils # (0-0.7) k/uL Basophils # (0-0.2) k/uL Macrocytosis PT 14.4 H (9.0-12.0) sec INR 1.4 H (<1.2) APTT 28.0 (22.0-30.0) sec Sodium (137-145) mmol/L Potassium (3.5-5.1) mmol/L Chloride (98-107) mmol/L Carbon Dioxide (22-30) mmol/L Anion Gap mmol/L BUN (7-17) mg/dL Creatinine (0.52-1.04) mg/dL Est GFR (CKD-EPI)AfAm (>60 ml/min/1.73 sqM) Est GFR (CKD-EPI)NonAf (>60 ml/min/1.73 sqM) Glucose (74-99) mg/dL Plasma Lactic Acid Carlos (0.7-2.0) mmol/L Calcium (8.4-10.2) mg/dL Phosphorus (2.5-4.5) mg/dL Magnesium (1.6-2.3) mg/dL Total Bilirubin (0.2-1.3) mg/dL AST (14-36) U/L ALT (9-52) U/L Alkaline Phosphatase (38-126) U/L Creatine Kinase (30-135) U/L Troponin I 0.055 H* (0.000-0.034) ng/mL NT-Pro-B Natriuret Pep 548 pg/mL Total Protein (6.3-8.2) g/dL Albumin (3.5-5.0) g/dL - EKG Data -: EKG Interpreted by Me (EKG shows sinus rhythm rate of 66, MS 156, QRS 1:30, QTc 501) - Radiology Data Radiology results: report reviewed (Chest x-rays negative for acute disease), image reviewed Disposition Clinical Impression: Intractable pain, Peripheral edema, Anxiety Disposition: HOME SELF-CARE Condition: Good Instructions (If sedation given, give patient instructions): Anxiety (ED) Is patient prescribed a controlled substance at d/c from ED?: No Referrals: Gilma Martinez MD [Primary Care Provider] - 1-2 days
[2019-04-25 20:30] LABS: Basophils % (A) 0 %; Eosinophils # (A) 0.1 k/uL (0-0.7); Eosinophils % (A) 2 %; HCT 35.5 % (34.0-46.0); HGB 11.5 gm/dL (11.4-16.0); Lymphocytes # (A) 0.8 k/uL (1.0-4.8); Lymphocytes % (A) 15 %; MCH 34.4 pg (25.0-35.0); MCHC 32.2 g/dL (31.0-37.0); MCV 106.7 fL (80.0-100.0); Macrocytosis Moderate; Mean Platelet Volume 8.7; Monocytes # (A) 0.3 k/uL (0-1.0); Monocytes % (A) 6 %; Neutrophils # (A) 4.1 k/uL (1.3-7.7); Neutrophils % (A) 74 %; Platelet Count 111 k/uL (150-450); RBC 3.33 m/uL (3.80-5.40); RDW 14.9 % (11.5-15.5); WBC 5.5 k/uL (3.8-10.6)
--- NOTE | 2019-04-25 20:37 | XR ---
EXAMINATION: XR chest 2V DATE AND TIME: 04/25/2019 8:25 PM CLINICAL INDICATION: PHH; Weakness TECHNIQUE: Departmental protocol COMPARISON: 04/12/2019 FINDINGS: The lungs are clear. The pleural spaces are negative. The cardiac silhouette is not enlarged. The remainder of the mediastinal silhouette is unremarkable. The skeletal structures and soft tissues are negative for acute findings. IMPRESSION: NO ACUTE PROCESS.
[2019-04-25 20:41] LABS: INR 1.4 (<1.2); Prothrombin Time 14.4 sec (9.0-12.0)
[2019-04-25 20:44] LABS: Albumin 2.7 g/dL (3.5-5.0); Calcium 8.3 mg/dL (8.4-10.2); Magnesium 1.7 mg/dL (1.6-2.3); Phosphorus 2.4 mg/dL (2.5-4.5); Potassium 3.9 mmol/L (3.5-5.1); Total Bilirubin 2.3 mg/dL (0.2-1.3); Total Protein 6.1 g/dL (6.3-8.2)
[2019-04-25 21:37] VITALS: RESP 18
[2019-04-25 22:31] VITALS: BP 101/50; PULSE 76; TEMP 98.6
== END 2019-04-25 22:31 | disposition home or self-care (01) ==
LOC: EC 19:39
DX: F41.9 Anxiety disorder, unspecified (principal); R60.0 Localized edema; R52 Pain, unspecified; E11.22 Type 2 diabetes mellitus with diabetic chronic kidney disease; I12.9 Hypertensive chronic kidney disease with stage 1 through stage 4 chronic kidney disease, or unspecified chronic kidney disease; N18.3 Chronic kidney disease, stage 3 (moderate); K21.9 Gastro-esophageal reflux disease without esophagitis; I25.2 Old myocardial infarction; Z79.4 Long term (current) use of insulin; Z79.899 Other long term (current) drug therapy; Z88.0 Allergy status to penicillin; Z88.5 Allergy status to narcotic agent; Z88.8 Allergy status to other drugs, medicaments and biological substances; Z87.891 Personal history of nicotine dependence; Z85.05 Personal history of malignant neoplasm of liver
CPT/HCPCS: 36415; 93005; 83880; 80053; 82550; 83605; 83735; 84100; 84484; 85025; 85610; 85730; 71046; 99284; 96374; 96375; J2060; J1940

== ENCOUNTER 2019-04-30 16:11 | Inpatient (IN) | payer MEDICARE ==
--- NOTE | 2019-04-30 16:48 | ED ---
General Adult HPI - General Chief complaint: Altered Mental Status Stated complaint: altered mental status Time Seen by Provider: 04/30/19 16:27 Source: family Mode of arrival: wheelchair Limitations: altered mental status - History of Present Illness Initial comments: Dictation was produced using [employer] dictation software. please excuse any grammatical, word or spelling errors. Chief Complaint: 73 Year old female past medical history of liver disease presents with altered mental status. History of Present Illness: Is a 73-year-old female she has past medical history of hepatitis, liver disease she takes lactulose daily. Patient was difficult to arouse this morning because she was very sleepy. [id number] who is her primary test inspection engineer noticed that she was a little more confused upon waking. Patient was finally arouse and was brought to the emergency department. According to [id number] patient has been in her usual state of health yesterday. They noticed her symptoms only this morning. Patient has no complaints at this time. According [id number] patient hasn't been having any symptoms of nausea vomiting. She has been complaining of pain. No diarrhea. Patient's history of ileostomy. Patient has multiple abdominal surgeries including cholecystectomy and appendectomy and ileostomy placement. Patient states she feels well however feel slightly nauseated today. She takes lactulose every morning however did not take her morning dose secondary to not waking up at a reasonable time. The ROS documented in this emergency department record has been reviewed and confirmed by me. Those systems with pertinent positive or negative responses have been documented in the HPI. All other systems are other negative and/or noncontributory. PHYSICAL EXAM: General Impression: Alert and oriented x3, not in acute distress HEENT: Normocephalic atraumatic, extra-ocular movements intact, pupils equal and reactive to light bilaterally, mucous membranes moist. Cardiovascular: Heart regular rate and rhythm, S1&S2 audible, no murmurs, rubs or gallops Chest: Lungs clear to auscultation bilaterally, no rhonchi, no wheeze, no rales Abdomen: Bowel sounds present, abdomen soft, non-tender, non-distended, no organomegaly Musculoskeletal: Pulses present and equal in all extremities, no peripheral edema Motor: no focal deficits noted Neurological: CN II-XII grossly intact, no focal motor or sensory deficits noted, positive asterixis Skin: Intact with no visualized rashes Psych: Normal affect and mood ED course: 73-year-old female presents with altered mental status. Upon arrival shows findings within acceptable limits. Physical examination is suggestive of hepatic encephalopathy. Laboratory evaluation obtained. CBC, UNRE urinalysis is negative. Serum alcohol is negative. Chest x-ray and computed tomography scan of the head is unremarkable. MARKABLE. Patient has elevated ammonia 44 clinical presentation is consistent with hepatic encephalopathy secondary to hyperammonemia. Patient started on lactulose. This point there is no clear source of infection or other physiologic stress causing patient to become encephalopathic. Patient to be admitted to Dr. lea. Dr. Lea is willing to accept care for patient.. EKG interpretation: Ventricular rate 61, normal sinus rhythm,. Interval 150, QS 90, QTC 481. No AL prolongation, no QTC prolongation, no ST or T-wave changes noted. EKG compared to 04/25/2019 showing no changes. Overall, this EKG is unremarkable - Related Data Home Medications Medication Instructions Recorded Confirmed Omeprazole [PriLOSEC] 20 mg PO BID 10/23/18 04/30/19 Sucralfate [Carafate] 1 gm PO QID 10/23/18 04/30/19 Insulin Regular, Human [NovoLIN R] 10 unit SQ AC-TID 10/24/18 04/30/19 Magnesium Oxide [William] 500 mg PO DAILY 12/30/18 04/30/19 Cholecalciferol [Vitamin D3 (25 4,000 unit PO DAILY 01/16/19 04/30/19 Mcg = 1000 Iu)] Ferrous Sulfate [Iron (65 MG 325 mg PO BID 01/31/19 04/30/19 Elemental)] Lactulose [Cephulac] 45 gm PO TID 04/07/19 04/30/19 Potassium Chloride [Klor-Con 20] 20 meq PO DAILY 04/21/19 04/30/19 Metoprolol Tartrate [Lopressor] 12.5 mg PO BID 04/30/19 04/30/19 Nitrofurantoin Monohyd/M-Cryst 100 mg PO BID 04/30/19 04/30/19 [Macrobid] Previous Rx's Medication Instructions Recorded buPROPion SR [Wellbutrin SR] 150 mg PO DAILY #30 tablet.er 12/21/18 Insulin NPH [humuLIN N] 18 unit SQ BID vial 02/06/19 Dicyclomine [Bentyl] 20 mg PO TID 30 Days #180 cap 03/31/19 Morphine Sulfate ER [Ms Contin] 15 mg PO Q12HR 3 Days #6 tablet 04/17/19 Rifaximin [Xifaxan] 550 mg PO BID tablet 04/17/19 Sodium Bicarbonate Tab 1,300 mg PO BID tab 04/17/19 Torsemide [Demadex] 20 mg PO Q48H 30 Days #30 tab 04/17/19 Allergies Allergy/AdvReac Type Severity Reaction Status Date / Time amlodipine Allergy Rash/Hives Verified 04/30/19 17:23 oxycodone Allergy Rash/Hives Verified 04/30/19 17:23 Penicillins Allergy Rash/Hives Verified 04/30/19 17:23 hydromorphone [From Dilaudid] AdvReac Mild tactile Verified 04/30/19 17:23 disturbance GREG Inhibitors AdvReac Cough Verified 04/30/19 17:23 sodium dodecyclbenzene Allergy Rash/Hives Uncoded 04/21/19 15:45 sulfonate Review of Systems ROS Statement: Those systems with pertinent positive or pertinent negative responses have been documented in the HPI. ROS Other: All systems not noted in ROS Statement are negative. Past Medical History Past Medical History: Cancer, Diabetes Mellitus, GERD/Reflux, Hypertension, Liver Disease, Myocardial Infarction (CT), Renal Disease Additional Past Medical History / Comment(s): Hepatocellular liver cancer with chemo immobilization-last time being 2017, ascities with paracentesis's , nonalcoholic liver cirrhosis, chronic pancytopenia, chronic elevated ammonia levels, hepatic encephalopathy, chronic elevated LFTs, chronic abdominal pain, stomach ulcer, diverticular disease with ileostomy, IDDM type II, iron anemia, CKD stage III, nonsustained vtach, UTI, high ammonia levels Last Myocardial Infarction Date:: unk History of Any Multi-Drug Resistant Organisms: MRSA Date of last positivie culture/infection: 12/30/18 MDRO Source:: Urine Past Surgical History: Appendectomy, Bowel Resection, Section, Cholecystectomy, Hysterectomy, Tonsillectomy Additional Past Surgical History / Comment(s): Chemo immobilizations, liver biopsies, paracentesis, bowel resection d/t diverticulitis/ileostomy, R rotator cuff repair, carpal tunnel release-laterality unknown. Past Anesthesia/Blood Transfusion Reactions: No Reported Reaction Past Psychological History: Anxiety, Depression Smoking Status: Former smoker Past Alcohol Use History: None Reported Past Drug Use History: None Reported - Past Family History Mother History Unknown: Yes Family Medical History: Congestive Heart Failure (CHF) Additional Family Medical History / Comment(s): Mother is 94 yrs old. Father Family Medical History: Chest Pain / Angina Additional Family Medical History / Comment(s): Father is . General Exam Limitations: altered mental status Course Vital Signs 04/30/19 04/30/19 16:17 17:21 Temperature 98.5 F Pulse Rate 70 87 Respiratory 16 18 Rate Blood Pressure 131/70 O2 Sat by Pulse 96 97 Oximetry Medical Decision Making - Lab Data Result diagrams: 04/30/19 17:10 04/30/19 17:10 Lab Results 04/30/19 04/30/19 04/30/19 Range/Units 17:10 17:10 17:10 WBC 5.2 (3.8-10.6) k/uL RBC 4.11 (3.80-5.40) m/uL Hgb 14.1 (11.4-16.0) gm/dL Hct 42.3 (34.0-46.0) % MCV 103.0 H (80.0-100.0) fL MCH 34.2 (25.0-35.0) pg MCHC 33.2 (31.0-37.0) g/dL RDW 16.1 H (11.5-15.5) % Plt Count 103 L (150-450) k/uL Neutrophils % 73 % Lymphocytes % 16 % Monocytes % 6 % Eosinophils % 3 % Basophils % 0 % Neutrophils # 3.8 (1.3-7.7) k/uL Lymphocytes # 0.8 L (1.0-4.8) k/uL Monocytes # 0.3 (0-1.0) k/uL Eosinophils # 0.2 (0-0.7) k/uL Basophils # 0.0 (0-0.2) k/uL Anisocytosis Slight Macrocytosis Slight Sodium 137 (137-145) mmol/L Potassium 3.4 L (3.5-5.1) mmol/L Chloride 106 (98-107) mmol/L Carbon Dioxide 24 (22-30) mmol/L Anion Gap 7 mmol/L BUN 19 H (7-17) mg/dL Creatinine 1.38 H (0.52-1.04) mg/dL Est GFR (CKD-EPI)AfAm 44 (>60 ml/min/1.73 sqM) Est GFR (CKD-EPI)NonAf 39 (>60 ml/min/1.73 sqM) Glucose 138 H (74-99) mg/dL Calcium 8.6 (8.4-10.2) mg/dL Magnesium 2.0 (1.6-2.3) mg/dL Total Bilirubin 2.6 H (0.2-1.3) mg/dL AST 92 H (14-36) U/L ALT 36 (9-52) U/L Alkaline Phosphatase 317 H (38-126) U/L Ammonia 44 H (<30) umol/L Total Protein 6.8 (6.3-8.2) g/dL Albumin 3.2 L (3.5-5.0) g/dL Urine Color Urine Appearance (Clear) Urine pH (5.0-8.0) Ur Specific [place] (1.001-1.035) Urine Protein (Negative) Urine Glucose (UA) (Negative) Urine Ketones (Negative) Urine Blood (Negative) Urine Nitrite (Negative) Urine Bilirubin (Negative) Urine Urobilinogen (<2.0) mg/dL Ur Leukocyte Esterase (Negative) Serum Alcohol <10 mg/dL 04/30/19 Range/Units 19:25 WBC (3.8-10.6) k/uL RBC (3.80-5.40) m/uL Hgb (11.4-16.0) gm/dL Hct (34.0-46.0) % MCV (80.0-100.0) fL MCH (25.0-35.0) pg MCHC (31.0-37.0) g/dL RDW (11.5-15.5) % Plt Count (150-450) k/uL Neutrophils % % Lymphocytes % % Monocytes % % Eosinophils % % Basophils % % Neutrophils # (1.3-7.7) k/uL Lymphocytes # (1.0-4.8) k/uL Monocytes # (0-1.0) k/uL Eosinophils # (0-0.7) k/uL Basophils # (0-0.2) k/uL Anisocytosis Macrocytosis Sodium (137-145) mmol/L Potassium (3.5-5.1) mmol/L Chloride (98-107) mmol/L Carbon Dioxide (22-30) mmol/L Anion Gap mmol/L BUN (7-17) mg/dL Creatinine (0.52-1.04) mg/dL Est GFR (CKD-EPI)AfAm (>60 ml/min/1.73 sqM) Est GFR (CKD-EPI)NonAf (>60 ml/min/1.73 sqM) Glucose (74-99) mg/dL Calcium (8.4-10.2) mg/dL Magnesium (1.6-2.3) mg/dL Total Bilirubin (0.2-1.3) mg/dL AST (14-36) U/L ALT (9-52) U/L Alkaline Phosphatase (38-126) U/L Ammonia (<30) umol/L Total Protein (6.3-8.2) g/dL Albumin (3.5-5.0) g/dL Urine Color Yellow Urine Appearance Clear (Clear) Urine pH 6.0 (5.0-8.0) Ur Specific [place] 1.012 (1.001-1.035) Urine Protein Negative (Negative) Urine Glucose (UA) Negative (Negative) Urine Ketones Negative (Negative) Urine Blood Negative (Negative) Urine Nitrite Negative (Negative) Urine Bilirubin Negative (Negative) Urine Urobilinogen <2.0 (<2.0) mg/dL Ur Leukocyte Esterase Negative (Negative) Serum Alcohol mg/dL Disposition Clinical Impression: Hepatic encephalopathy Disposition: ADMITTED IP TO THIS HOSP Condition: Fair Referrals: Gilma Martinez MD [Primary Care Provider] - 1-2 days Decision Time: 20:03
[2019-04-30 17:21] LABS: Anisocytosis Slight; Basophils % (A) 0 %; Eosinophils # (A) 0.2 k/uL (0-0.7); Eosinophils % (A) 3 %; HCT 42.3 % (34.0-46.0); HGB 14.1 gm/dL (11.4-16.0); Lymphocytes # (A) 0.8 k/uL (1.0-4.8); Lymphocytes % (A) 16 %; MCH 34.2 pg (25.0-35.0); MCHC 33.2 g/dL (31.0-37.0); Macrocytosis Slight; Mean Platelet Volume 9.2; Monocytes # (A) 0.3 k/uL (0-1.0); Monocytes % (A) 6 %; Neutrophils # (A) 3.8 k/uL (1.3-7.7); Neutrophils % (A) 73 %; Platelet Count 103 k/uL (150-450); RBC 4.11 m/uL (3.80-5.40); RDW 16.1 % (11.5-15.5); WBC 5.2 k/uL (3.8-10.6)
[2019-04-30 17:33] LABS: ALT 36 U/L (9-52); AST 92 U/L (14-36); African American GFR (CKD) 44 (>60 ml/min/1.73 sqM); Albumin 3.2 g/dL (3.5-5.0); Alcohol <10 mg/dL; Alkaline Phosphatase 317 U/L (38-126); Anion Gap 7 mmol/L; Blood Urea Nitrogen 19 mg/dL (7-17); Calcium 8.6 mg/dL (8.4-10.2); Carbon Dioxide 24 mmol/L (22-30); Chloride 106 mmol/L (98-107); Glucose 138 mg/dL (74-99); Potassium 3.4 mmol/L (3.5-5.1); Sodium 137 mmol/L (137-145); Total Bilirubin 2.6 mg/dL (0.2-1.3); Total Protein 6.8 g/dL (6.3-8.2)
--- NOTE | 2019-04-30 17:44 | XR ---
EXAMINATION TYPE: XR chest 2V DATE OF EXAM: 04/30/2019 COMPARISON: Chest x-ray from 5 days ago HISTORY: Chest pain and weakness. Confusion. TECHNIQUE: Frontal and lateral views of the chest are obtained. FINDINGS: There is no focal air space opacity, pleural effusion, or pneumothorax seen. The cardiac silhouette size remains within normal limits with atelectatic change in aortic knob. Multilevel spurr ing in thoracic spine is redemonstrated. Overlying EKG leads are again seen. IMPRESSION: No acute cardiopulmonary process. No significant change from prior.
--- NOTE | 2019-04-30 17:45 | CT ---
EXAMINATION TYPE: CT brain wo con DATE OF EXAM: 04/30/2019 HISTORY: Pt's family said she went to bed acting fine and today did not awake until 1300, acting grog gy and confused CT DLP: 1070.40 mGycm. Automated Exposure Control for Dose Reduction was Utilized. TECHNIQUE: CT scan of the head is performed without contrast. COMPARISON: CT brain April 08, 2019. FINDINGS: There is no acute intracranial hemorrhage or midline shift identified. There is diffuse v entricular and sulcal prominence consistent with diffuse age-related cerebral atrophy. There is low- attenuation in the periventricular white matter consistent with chronic small vessel ischemic change. The globes are intact and the visualized sinuses are clear. IMPRESSION: No acute intracranial hemorrhage or midline shift. There is mild to moderate diffuse ag e-related cerebral atrophy and mild chronic small vessel ischemic change redemonstrated. No signific ant change from prior.
[2019-04-30 19:38] LABS: Appearance,Urine Clear (Clear); Bilirubin,Urine Negative (Negative); Blood,Urine Negative (Negative); Color,Urine Yellow; Glucose,Urine (UA) Negative (Negative); Ketones,Urine Negative (Negative); Leukocyte Esterase,Urine Negative (Negative); Nitrite,Urine Negative (Negative); Protein,Urine Negative (Negative); Specific Gravity,Urine 1.012 (1.001-1.035); Urobilinogen,Urine <2.0 mg/dL (<2.0)
[2019-04-30] MEDS ORDERED: LACTULOSE 20 GM/30 ML CUP PO ONE (19:41)
[2019-04-30] MEDS ORDERED: NALOXONE 0.4 MG/ML 1 ML VIAL IV PRN (20:00)
[2019-04-30] MEDS ORDERED: ACETAMINOPHEN TAB 325 MG TAB PO PRN (20:00)
[2019-04-30] MEDS: SODIUM CHLORIDE 0.9% 1,000 ML IV SCH (20:46)
[2019-04-30] MEDS: LACTULOSE 20 GM/30 ML CUP PO SCH (22:01)
[2019-04-30] MEDS: FERROUS SULFATE 325 MG TAB PO SCH (22:02)
[2019-04-30] MEDS: METOPROLOL TARTRATE 12.5 MG TAB PO SCH (22:02)
[2019-04-30] MEDS: RIFAXIMIN 550 MG TABLET PO SCH (22:03)
[2019-05-01] MEDS: MORPHINE SULFATE ER 15 MG TABLET PO PRN (02:43)
[2019-05-01 07:12] LABS: Glucose,Whole Blood 130 mg/dL (75-99)
[2019-05-01] MEDS ORDERED: PANTOPRAZOLE 40 MG TABLET PO SCH (07:30)
[2019-05-01] MEDS: INSULIN ASPART (NovoLOG) 100 UNIT/ML VIAL SQ SCH ×4 (07:38→20:16)
[2019-05-01] MEDS: SODIUM BICARBONATE TAB 650 MG TAB PO SCH ×2 (07:39→20:15)
[2019-05-01] MEDS: METOPROLOL TARTRATE 12.5 MG TAB PO SCH ×2 (07:39→20:15)
[2019-05-01] MEDS: FERROUS SULFATE 325 MG TAB PO SCH ×2 (07:39→20:15)
[2019-05-01] MEDS: LACTULOSE 20 GM/30 ML CUP PO SCH ×3 (07:39→20:16)
[2019-05-01] MEDS: PANTOPRAZOLE 40 MG TABLET PO SCH ×2 (07:40→20:16)
[2019-05-01] MEDS: CHOLECALCIFEROL 1,000 UNIT TAB PO SCH (07:40)
[2019-05-01] MEDS: RIFAXIMIN 550 MG TABLET PO SCH ×2 (07:40→20:16)
[2019-05-01] MEDS: DICYCLOMINE 20 MG TAB PO SCH ×3 (07:40→20:16)
[2019-05-01] MEDS: buPROPion SR 150 MG TABLET.ER PO SCH (07:40)
[2019-05-01] MEDS: SUCRALFATE 1 GM TAB PO SCH ×4 (07:40→20:16)
[2019-05-01] MEDS: MAGNESIUM OXIDE 400 MG TAB PO SCH (07:40)
[2019-05-01] MEDS: INSULIN NPH 300 UNIT/3 ML VIAL SQ SCH ×2 (07:41→17:19)
[2019-05-01] MEDS ORDERED: FLUCONAZOLE 150 MG TAB PO STA (10:10)
--- NOTE | 2019-05-01 10:25 | P.HPIM ---
History of Present Illness H&P Date: 05/01/19 Chief Complaint: Confusion This is a 73-year-old female, patient of Dr. Kurtz. She has a known past medical history of hepatocellular carcinoma, liver cirrhosis, chronic kidney disease stage III and diabetes mellitus. Patient presents to the emergency room with altered mental status changes. Per patient she had been doing well she left [facility] [place] [facility] the about a week ago she was there for rehabilitation. She reports taking all of her medications including the lactulose. The Xifaxan she does not take at home because it is too expensive. She was brought in to [facility] emergency room due to worsening mental status changes yesterday per the [id number]. Patient reports she felt that she was in a fog. She was having difficulty even getting dressed in the morning And is also having difficulty with her speech. She denies any weakness on one side of the body. She denies any fever, chills, sweats, chest pain or shortness of breath. Denies any burning with urination. She was having some nausea and vomiting. Patient states she is having a lot of liquidy stool through her ileostomy. Patient does report having a lot of loose stools. Due to her recent hospitalizations we'll be ordering a stool for C. diff. Alcohol level was less than 10 urinalysis was negative computed tomography scan range in no acute changes chest x-rays negative. EKG normal sinus rhythm. Ammonia elevated at 44 she was given an extra dose of lactulose in the ER. Creatinine 1.38. She was discharged on April 17 for [facility] and at that time was felt for mental status changes and elevated troponins and acute coronary syndrome was ruled out. Review of Systems Please refer to HPI otherwise unremarkable Past Medical History Past Medical History: Cancer, Diabetes Mellitus, GERD/Reflux, Hypertension, Liver Disease, Myocardial Infarction ([place]), Renal Disease Additional Past Medical History / Comment(s): Hepatocellular liver cancer with chemo immobilization-last time being 2017, ascities with paracentesis's , nonalcoholic liver cirrhosis, chronic pancytopenia, chronic elevated ammonia levels, hepatic encephalopathy, chronic elevated LFTs, chronic abdominal pain, stomach ulcer, diverticular disease with ileostomy, IDDM type II, iron anemia, CKD stage III, nonsustained vtach, UTI, high ammonia levels Last Myocardial Infarction Date:: unk History of Any Multi-Drug Resistant Organisms: MRSA Date of last positivie culture/infection: 12/30/18 MDRO Source:: Urine Past Surgical History: Appendectomy, Bowel Resection, Section, Cholecystectomy, Hysterectomy, Tonsillectomy Additional Past Surgical History / Comment(s): Chemo immobilizations, liver biopsies, paracentesis, bowel resection d/t diverticulitis/ileostomy, R rotator cuff repair, carpal tunnel release-laterality unknown. Past Anesthesia/Blood Transfusion Reactions: No Reported Reaction Past Psychological History: Anxiety, Depression Additional Psychological History / Comment(s): pt resides at [facility] [phone] Reformed smoker. . Retired. No experience. No animal exposures Smoking Status: Never smoker Past Alcohol Use History: None Reported Additional Past Alcohol Use History / Comment(s): started smoking 1962 and quit 1965 Past Drug Use History: None Reported - Past Family History Mother History Unknown: Yes Family Medical History: Congestive Heart Failure (CHF) Additional Family Medical History / Comment(s): Mother is 94 yrs old. Father Family Medical History: Chest Pain / Angina Additional Family Medical History / Comment(s): Father is . Medications and Allergies Home Medications Medication Instructions Recorded Confirmed Type Omeprazole [PriLOSEC] 20 mg PO BID 10/23/18 04/30/19 History Sucralfate [Carafate] 1 gm PO QID 10/23/18 04/30/19 History Insulin Regular, Human [NovoLIN R] 10 unit SQ AC-TID 10/24/18 04/30/19 History buPROPion SR [Wellbutrin SR] 150 mg PO DAILY #30 tablet.er 12/21/18 04/30/19 Rx Magnesium Oxide [William] 500 mg PO DAILY 12/30/18 04/30/19 History Cholecalciferol [Vitamin D3 (25 4,000 unit PO DAILY 01/16/19 04/30/19 History Mcg = 1000 Iu)] Ferrous Sulfate [Iron (65 MG 325 mg PO BID 01/31/19 04/30/19 History Elemental)] Insulin NPH [humuLIN N] 18 unit SQ BID vial 02/06/19 04/30/19 Rx Dicyclomine [Bentyl] 20 mg PO TID 30 Days #180 cap 03/31/19 04/30/19 Rx Lactulose [Cephulac] 45 gm PO TID 04/07/19 04/30/19 History Morphine Sulfate ER [Ms Contin] 15 mg PO Q12HR 3 Days #6 tablet 04/17/19 04/30/19 Rx Rifaximin [Xifaxan] 550 mg PO BID tablet 04/17/19 04/30/19 Rx Sodium Bicarbonate Tab 1,300 mg PO BID tab 04/17/19 04/30/19 Rx Torsemide [Demadex] 20 mg PO Q48H 30 Days #30 tab 04/17/19 04/30/19 Rx Potassium Chloride [Klor-Con 20] 20 meq PO DAILY 04/21/19 04/30/19 History Metoprolol Tartrate [Lopressor] 12.5 mg PO BID 04/30/19 04/30/19 History Nitrofurantoin Monohyd/M-Cryst 100 mg PO BID 04/30/19 04/30/19 History [Macrobid] Allergies Allergy/AdvReac Type Severity Reaction Status Date / Time amlodipine Allergy Rash/Hives Verified 04/30/19 17:23 oxycodone Allergy Rash/Hives Verified 04/30/19 17:23 Penicillins Allergy Rash/Hives Verified 04/30/19 17:23 hydromorphone [From Dilaudid] AdvReac Mild tactile Verified 04/30/19 17:23 disturbance GREG Inhibitors AdvReac Cough Verified 04/30/19 17:23 sodium dodecyclbenzene Allergy Rash/Hives Uncoded 04/21/19 15:45 sulfonate Physical Exam Vitals: Vital Signs Temp Pulse Pulse Resp BP BP Pulse Ox 05/01/19 05:30 97.8 F 60 18 108/64 100 04/30/19 21:00 98 F 65 20 127/67 91 L 04/30/19 20:47 98.3 F 77 18 136/82 97 04/30/19 17:21 87 18 97 04/30/19 16:17 98.5 F 70 16 131/70 96 Intake and Output 04/30/19 05/01/19 05/01/19 22:59 06:59 14:59 Other: Voiding Method Toilet Toilet Diaper Diaper Incontinent Incontinent # Voids 1 Weight 71 kg Head normocephalic Neck supple Lungs clear to auscultation bilaterally no wheezing or crackles Heart regular rate and rhythm S1-S2, no rub or gallop Abdomen is soft diffuse tenderness nondistended positive bowel sounds no hepatosplenomegaly Extremities no edema Neuro alert and orientated to 3. No facial droop. Hand blender snuff and lower extremity strength equal bilaterally Results CBC & Chem 7: 04/30/19 17:10 04/30/19 17:10 Labs: Abnormal Lab Results - Last 24 Hours (Table) 04/30/19 04/30/19 04/30/19 Range/Units 17:10 17:10 17:10 MCV 103.0 H (80.0-100.0) fL RDW 16.1 H (11.5-15.5) % Plt Count 103 L (150-450) k/uL Lymphocytes # 0.8 L (1.0-4.8) k/uL Potassium 3.4 L (3.5-5.1) mmol/L BUN 19 H (7-17) mg/dL Creatinine 1.38 H (0.52-1.04) mg/dL Glucose 138 H (74-99) mg/dL POC Glucose (mg/dL) (75-99) mg/dL Total Bilirubin 2.6 H (0.2-1.3) mg/dL AST 92 H (14-36) U/L Alkaline Phosphatase 317 H (38-126) U/L Ammonia 44 H (<30) umol/L Albumin 3.2 L (3.5-5.0) g/dL 05/01/19 Range/Units 07:04 MCV (80.0-100.0) fL RDW (11.5-15.5) % Plt Count (150-450) k/uL Lymphocytes # (1.0-4.8) k/uL Potassium (3.5-5.1) mmol/L BUN (7-17) mg/dL Creatinine (0.52-1.04) mg/dL Glucose (74-99) mg/dL POC Glucose (mg/dL) 130 H (75-99) mg/dL Total Bilirubin (0.2-1.3) mg/dL AST (14-36) U/L Alkaline Phosphatase (38-126) U/L Ammonia (<30) umol/L Albumin (3.5-5.0) g/dL Microbiology - Last 24 Hours (Table) 04/30/19 19:25 Urine Culture - Preliminary Urine,Catheterized Thrombosis Risk Factor Assmnt - Choose All That Apply Any of the Below Risk Factors Present?: Yes Each Factor Represents 1 point: Acute [place] Other Risk Factors: Yes Each Risk Factor Represents 2 Points: Age 61-74 years Other congenital or acquired thrombophilia - If yes, enter type in comment: No Thrombosis Risk Factor Assessment Total Risk Factor Score: 3 Thrombosis Risk Factor Assessment Level: Moderate Risk Assessment and Plan Assessment: 1. Altered mental status changes likely due to hepatic encephalopathy. Computed tomography scan of the brain showing no acute changes. No evidence of infection continuing to her symptoms UTI ruled out. Chest x-rays negative. Alcohol level less than 10. 2. Hepatic encephalopathy: Ammonia level 44 on admission. Patient given lactulose in ER. She is having frequent stools through her colostomy very liquidy. She is currently lactulose 45 g 3 times a day. Xifaxan restarted here in the hospital. She is unable to take the Xifaxan at home due to being too expensive. Repeat ammonia level 3. Vomiting and diarrhea at home possibly related to a gastroenteritis. Vomiting has resolved. We'll check stool for C. diff 4. Acute kidney injury: Likely related to dehydration from the vomiting and diarrhea. We'll repeat labs. If kidney functions worsen will add IV fluids. Creatinine 1.38 on admission 5. Chronic kidney disease stage III 6. History of hepatocellular carcinoma 7. History of liver cirrhosis 8. History of diabetes mellitus type 2 9. Vaginal candidiasis: We'll give 1 dose of Diflucan 10. Chronic thrombocytopenia likely related to her liver disease 11. Mild protein calorie malnutrition: Albumin 3.2. Add Therese diaz Consult PT OT GI prophylaxis Protonix and DVT prophylaxis SCDs Time with Patient: Greater than 30 (Greater than 50% of the total time spent in counseling and coordination of care.I performed an examination of the patient and discussed their management with the physician Recycling Operator. I have reviewed the Physician Recycling Operator's notes and agree with the documented findings and plan of care)
[2019-05-01] MEDS ORDERED: TORSEMIDE 20 MG TAB PO SCH (10:30)
[2019-05-01 11:17] LABS: Glucose,Whole Blood 285 mg/dL (75-99)
[2019-05-01 12:19] LABS: Albumin 2.7 g/dL (3.5-5.0); Calcium 8.5 mg/dL (8.4-10.2); Potassium 3.3 mmol/L (3.5-5.1); Total Bilirubin 2.5 mg/dL (0.2-1.3); Total Protein 6.2 g/dL (6.3-8.2)
[2019-05-01] MEDS: INSULIN REGULAR 100 UNIT/ML VIAL SQ SCH ×2 (12:27→17:19)
[2019-05-01 12:29] LABS: Basophils % (A) 1 %; Eosinophils # (A) 0.2 k/uL (0-0.7); Eosinophils % (A) 4 %; HGB 13.1 gm/dL (11.4-16.0); Lymphocytes # (A) 0.9 k/uL (1.0-4.8); Lymphocytes % (A) 20 %; MCH 34.9 pg (25.0-35.0); MCHC 32.6 g/dL (31.0-37.0); MCV 106.9 fL (80.0-100.0); Macrocytosis Moderate; Mean Platelet Volume 8.5; Monocytes # (A) 0.3 k/uL (0-1.0); Monocytes % (A) 7 %; Neutrophils # (A) 2.9 k/uL (1.3-7.7); Neutrophils % (A) 65 %; RBC 3.75 m/uL (3.80-5.40); RDW 15.2 % (11.5-15.5); WBC 4.4 k/uL (3.8-10.6)
[2019-05-01] MEDS ORDERED: POTASSIUM CHLORIDE ER 20 MEQ TAB.ER PO STA (12:33)
[2019-05-01] MEDS ORDERED: LACTULOSE 20 GM/30 ML CUP PO ONE (12:36)
[2019-05-01 13:32] LABS: Platelet Count 93 k/uL (150-450)
[2019-05-01 14:11] LABS: INR 1.5 (<1.2)
--- NOTE | 2019-05-01 14:41 | US ---
EXAMINATION TYPE: US abdomen limited DATE OF EXAM: 05/01/2019 COMPARISON: US CLINICAL HISTORY: assess fluid. Ascites Ascites is seen in all 4 abdominal quadrants with the largest pocket noted in LLQ = 7.8xm A/P. IMPRESSION: Moderate ascites
[2019-05-01 15:47] VITALS: BMI 23.1
[2019-05-01 16:44] LABS: Glucose,Whole Blood 138 mg/dL (75-99)
[2019-05-01 20:11] LABS: Glucose,Whole Blood 159 mg/dL (75-99)
[2019-05-01] MEDS: SODIUM CHLORIDE 0.9% 1,000 ML IV SCH (20:19)
[2019-05-02 07:13] LABS: Glucose,Whole Blood 164 mg/dL (75-99)
[2019-05-02] MEDS: INSULIN REGULAR 100 UNIT/ML VIAL SQ SCH ×3 (07:58→17:23)
[2019-05-02] MEDS: INSULIN NPH 300 UNIT/3 ML VIAL SQ SCH ×2 (07:59→17:23)
[2019-05-02] MEDS: INSULIN ASPART (NovoLOG) 100 UNIT/ML VIAL SQ SCH ×4 (08:00→21:04)
[2019-05-02] MEDS: LACTULOSE 20 GM/30 ML CUP PO SCH ×4 (08:00→21:04)
[2019-05-02] MEDS: SUCRALFATE 1 GM TAB PO SCH ×4 (08:00→21:04)
[2019-05-02] MEDS: CHOLECALCIFEROL 1,000 UNIT TAB PO SCH (08:00)
[2019-05-02] MEDS: DICYCLOMINE 20 MG TAB PO SCH ×3 (08:00→21:03)
[2019-05-02] MEDS: MAGNESIUM OXIDE 400 MG TAB PO SCH (08:00)
[2019-05-02] MEDS: POTASSIUM CHLORIDE ER 20 MEQ TAB.ER PO SCH (08:00)
[2019-05-02] MEDS: PANTOPRAZOLE 40 MG TABLET PO SCH ×2 (08:00→21:05)
[2019-05-02] MEDS: RIFAXIMIN 550 MG TABLET PO SCH ×2 (08:01→21:03)
[2019-05-02] MEDS: TORSEMIDE 20 MG TAB PO SCH (08:01)
[2019-05-02] MEDS: SODIUM BICARBONATE TAB 650 MG TAB PO SCH ×2 (08:01→21:03)
[2019-05-02] MEDS: METOPROLOL TARTRATE 12.5 MG TAB PO SCH ×2 (08:01→21:03)
[2019-05-02] MEDS: buPROPion SR 150 MG TABLET.ER PO SCH (08:01)
[2019-05-02] MEDS: FERROUS SULFATE 325 MG TAB PO SCH ×2 (08:01→21:03)
--- NOTE | 2019-05-02 09:54 | P.CONS ---
History of Present Illness - Reason for Consult Consult date: 05/02/19 Elevated ammonia history of cirrhosis Requesting physician: Artemio Lea - Chief Complaint Altered mental status - History of Present Illness 73-year-old female with a history of hepatocellular carcinoma status post chemoembolization underlying nonalcoholic liver cirrhosis, portal hypertension, hepatic encephalopathy, chronic ascites with paracentesis, colonic diverticular disease with ileostomy placement, chronic abdominal pain, chronic kidney disease with altered mental status changes and enterococcus UTI. CT brain negative. Consult requested for elevated ammonia level. Patient's been maintained on lactulose and Xifaxan. Admission ammonia 44 increased to 63. Total bilirubin 2.6. AST 92. ALT 36. AP 317. Ultrasound abdomen moderate ascites. Review of Systems Constitutional: Denies fever, chills, sweats, weight gain, or loss. HEENT: Negative for migraines, blurred vision or loss, earaches, drainage, tinnitus, oral mucosal lesions, dysphagia, or odynophagia. CARDIAC: Negative for chest pain, arrhythmias, or palpitation. RESPIRATORY: Negative for shortness of breath, hemoptysis, cough, or sputum production. GI: See HPI for pertinent findings. : Negative for hematuria, urgency, frequency, polyuria, or dysuria. GYNc: Denies possibility of . Negative vaginal discharge. MUSCULOSKELETAL: Negative for muscle aches, swelling, arthritis, and arthralgias. NEUROLOGIC: Negative for stroke or TIA. ENDOCRINE: Negative for thyroid problems. SKIN: Negative for rash or itching. PSYCHIATRIC: Negative history for depression and anxiety Past Medical History Past Medical History: Cancer, Diabetes Mellitus, GERD/Reflux, Hypertension, Liver Disease, Myocardial Infarction ([place]), Renal Disease Additional Past Medical History / Comment(s): Hepatocellular liver cancer with chemo immobilization-last time being 2017, ascities with paracentesis's , nonalcoholic liver cirrhosis, chronic pancytopenia, chronic elevated ammonia levels, hepatic encephalopathy, chronic elevated LFTs, chronic abdominal pain, stomach ulcer, diverticular disease with ileostomy, IDDM type II, iron anemia, CKD stage III, nonsustained vtach, UTI, high ammonia levels Last Myocardial Infarction Date:: unk History of Any Multi-Drug Resistant Organisms: MRSA Year Discovered:: 12/30/18 MDRO Source:: Urine Past Surgical History: Appendectomy, Bowel Resection, Section, Cholecystectomy, Hysterectomy, Tonsillectomy Additional Past Surgical History / Comment(s): Chemo immobilizations, liver biopsies, paracentesis, bowel resection d/t diverticulitis/ileostomy, R rotator cuff repair, carpal tunnel release-laterality unknown. Past Anesthesia/Blood Transfusion Reactions: No Reported Reaction Past Psychological History: Anxiety, Depression Additional Psychological History / Comment(s): pt resides at [facility] [phone] Reformed smoker. . Retired. No experience. No animal exposures Smoking Status: Never smoker Past Alcohol Use History: None Reported Additional Past Alcohol Use History / Comment(s): started smoking 1962 and quit 1965 Past Drug Use History: None Reported - Past Family History Mother History Unknown: Yes Family Medical History: Congestive Heart Failure (CHF) Additional Family Medical History / Comment(s): Mother is 94 yrs old. Father Family Medical History: Chest Pain / Angina Additional Family Medical History / Comment(s): Father is . Medications and Allergies Home Medications Medication Instructions Recorded Confirmed Type Omeprazole [PriLOSEC] 20 mg PO BID 10/23/18 04/30/19 History Sucralfate [Carafate] 1 gm PO QID 10/23/18 04/30/19 History Insulin Regular, Human [NovoLIN R] 10 unit SQ AC-TID 10/24/18 04/30/19 History buPROPion SR [Wellbutrin SR] 150 mg PO DAILY #30 tablet.er 12/21/18 04/30/19 Rx Magnesium Oxide [William] 500 mg PO DAILY 12/30/18 04/30/19 History Cholecalciferol [Vitamin D3 (25 4,000 unit PO DAILY 01/16/19 04/30/19 History Mcg = 1000 Iu)] Ferrous Sulfate [Iron (65 MG 325 mg PO BID 01/31/19 04/30/19 History Elemental)] Insulin NPH [humuLIN N] 18 unit SQ BID vial 02/06/19 04/30/19 Rx Dicyclomine [Bentyl] 20 mg PO TID 30 Days #180 cap 03/31/19 04/30/19 Rx Lactulose [Cephulac] 45 gm PO TID 04/07/19 04/30/19 History Morphine Sulfate ER [Ms Contin] 15 mg PO Q12HR 3 Days #6 tablet 04/17/19 04/30/19 Rx Rifaximin [Xifaxan] 550 mg PO BID tablet 04/17/19 04/30/19 Rx Sodium Bicarbonate Tab 1,300 mg PO BID tab 04/17/19 04/30/19 Rx Torsemide [Demadex] 20 mg PO Q48H 30 Days #30 tab 04/17/19 04/30/19 Rx Potassium Chloride [Klor-Con 20] 20 meq PO DAILY 04/21/19 04/30/19 History Metoprolol Tartrate [Lopressor] 12.5 mg PO BID 04/30/19 04/30/19 History Nitrofurantoin Monohyd/M-Cryst 100 mg PO BID 04/30/19 04/30/19 History [Macrobid] Allergies Allergy/AdvReac Type Severity Reaction Status Date / Time amlodipine Allergy Rash/Hives Verified 04/30/19 17:23 oxycodone Allergy Rash/Hives Verified 04/30/19 17:23 Penicillins Allergy Rash/Hives Verified 04/30/19 17:23 hydromorphone [From Dilaudid] AdvReac Mild tactile Verified 04/30/19 17:23 disturbance GREG Inhibitors AdvReac Cough Verified 04/30/19 17:23 sodium dodecyclbenzene Allergy Rash/Hives Uncoded 04/21/19 15:45 sulfonate Physical Exam Vitals: Vital Signs Temp Pulse Resp BP Pulse Ox 05/02/19 06:44 98.8 F 63 16 108/67 98 05/01/19 20:08 98.9 F 60 14 107/65 100 05/01/19 14:21 98.7 F 58 L 16 108/68 100 Intake and Output 05/01/19 05/02/19 05/02/19 22:59 06:59 14:59 Intake Total 540 Output Total 300 Balance 540 -300 Intake: Oral 540 Output: Stool 300 Other: Voiding Method Toilet # Voids 1 # Bowel Movements 3 Weight 71 kg General appearance: The patient is alert, oriented, in no acute distress. HET: Head is normocephalic and atraumatic. Pupils are equal and reactive. Oropharynx is clear without lesions. Neck: Supple without lymphadenopathy. Trachea midline. Heart: S1 S2. Regular rate and rhythm. Lungs: No crackles or wheezes are heard. Abdomen: Soft, nontender, mild ascites with bowel sounds. No peritoneal signs. No palpable organomegaly or masses. Ostomy with scant amount of liquid stool in bed. Extremities: Normal skin color and turgor. No cyanosis, rash, ulceration, clubbing, or edema. Radial and pedal pulses are 2/4 bilaterally. Neurological: No focal deficits. Strength and sensation are grossly intact. No asterixis. Results CBC & Chem 7: 05/01/19 11:50 05/01/19 11:50 Labs: Abnormal Lab Results - Last 24 Hours (Table) 05/01/19 05/01/19 05/01/19 Range/Units 11:14 11:50 11:50 RBC 3.75 L (3.80-5.40) m/uL MCV 106.9 H (80.0-100.0) fL Plt Count 93 L (150-450) k/uL Lymphocytes # 0.9 L (1.0-4.8) k/uL PT (9.0-12.0) sec INR (<1.2) Potassium 3.3 L (3.5-5.1) mmol/L Carbon Dioxide 21 L (22-30) mmol/L Creatinine 1.09 H (0.52-1.04) mg/dL Glucose 242 H (74-99) mg/dL POC Glucose (mg/dL) 285 H (75-99) mg/dL Total Bilirubin 2.5 H (0.2-1.3) mg/dL AST 75 H (14-36) U/L Alkaline Phosphatase 260 H (38-126) U/L Ammonia (<30) umol/L Total Protein 6.2 L (6.3-8.2) g/dL Albumin 2.7 L (3.5-5.0) g/dL 05/01/19 05/01/19 05/01/19 Range/Units 11:50 13:47 16:42 RBC (3.80-5.40) m/uL MCV (80.0-100.0) fL Plt Count (150-450) k/uL Lymphocytes # (1.0-4.8) k/uL PT 15.0 H (9.0-12.0) sec INR 1.5 H (<1.2) Potassium (3.5-5.1) mmol/L Carbon Dioxide (22-30) mmol/L Creatinine (0.52-1.04) mg/dL Glucose (74-99) mg/dL POC Glucose (mg/dL) 138 H (75-99) mg/dL Total Bilirubin (0.2-1.3) mg/dL AST (14-36) U/L Alkaline Phosphatase (38-126) U/L Ammonia 63 H (<30) umol/L Total Protein (6.3-8.2) g/dL Albumin (3.5-5.0) g/dL 05/01/19 05/02/19 Range/Units 20:09 07:11 RBC (3.80-5.40) m/uL MCV (80.0-100.0) fL Plt Count (150-450) k/uL Lymphocytes # (1.0-4.8) k/uL PT (9.0-12.0) sec INR (<1.2) Potassium (3.5-5.1) mmol/L Carbon Dioxide (22-30) mmol/L Creatinine (0.52-1.04) mg/dL Glucose (74-99) mg/dL POC Glucose (mg/dL) 159 H 164 H (75-99) mg/dL Total Bilirubin (0.2-1.3) mg/dL AST (14-36) U/L Alkaline Phosphatase (38-126) U/L Ammonia (<30) umol/L Total Protein (6.3-8.2) g/dL Albumin (3.5-5.0) g/dL Microbiology - Last 24 Hours (Table) 04/30/19 19:25 Urine Culture - Preliminary Urine,Catheterized Group D Enterococcus CT Scan - head: report reviewed (Dr. Lomas) US - abdomen: report reviewed (Dr. Lomas) Assessment and Plan (1) Hepatic encephalopathy Narrative/Plan: 73-year-old female with a history of nonalcoholic liver cirrhosis liver carcinoma status post chemoembolization presents with acute process changes elevated ammonia consistent with acute hepatic encephalopathy possibly triggered secondary to underlying UTI group D enterococcus. Current Visit: Yes Status: Acute Code(s): K72.90 - HEPATIC FAILURE, UNSPECIFIED WITHOUT COMA SNOMED Code(s): 78123446 (2) Cirrhosis of liver with ascites Current Visit: Yes Status: Acute Code(s): K74.60 - UNSPECIFIED CIRRHOSIS OF LIVER; R18.8 - OTHER ASCITES SNOMED Code(s): 22647457 Plan: 1. Continue Xifaxan 550 mg twice daily. Lactulose 20 g 4 times a day. Ultrasound-guided paracentesis. 2. Low-salt diet. Daily ammonia. Thank you for this kind referral and the opportunity to participate in the care of your patient. This consultation was discussed with Dr. Lomas. The impression and plan of care have been directed as dictated.
--- NOTE | 2019-05-02 10:37 | P.PN ---
Subjective Progress Note Date: 05/02/19 This is a 73-year-old female, patient of Dr. Kurtz. She has a known past medical history of hepatocellular carcinoma, liver cirrhosis, chronic kidney disease stage III and diabetes mellitus. Patient presents to the emergency room with altered mental status changes. Per patient she had been doing well she left [facility] about a week ago she was there for rehabilitation. She reports taking all of her medications including the lactulose. The Xifaxan she does not take at home because it is too expensive. She was brought in to the emergency room due to worsening mental status changes yesterday per the [id number]. Patient reports she felt that she was in a fog. She was having difficulty even getting dressed in the morning And is also having difficulty with her speech. She denies any weakness on one side of the body. She denies any fever, chills, sweats, chest pain or shortness of breath. Denies any burning with urination. She was having some nausea and vomiting. Patient states she is having a lot of liquidy stool through her ileostomy. Patient does report having a lot of loose stools. Due to her recent hospitalizations we'll be ordering a stool for C. diff. Alcohol level was less than 10 urinalysis was negative computed tomography scan range in no acute changes chest x-rays negative. EKG normal sinus rhythm. Ammonia elevated at 44 she was given an extra dose of lactulose in the ER. Creatinine 1.38. She was discharged on April 17 for [facility] and at that time was felt for mental status changes and elevated troponins and acute coronary syndrome was ruled out. 05/03/19 patient still complaining of not feeling well some abdominal discomfort and decrease in appetite. She had abdominal ultrasound showing moderate ascites. She has been seen by GI service. She is scheduled for paracentesis later today. Stool for C. diff was negative. She does have a stage I coccyx ulcer developing. Zinc oxide has been ordered. Patient educated to stay off the area. She denies any chest pain or shortness of breath. Denies any vomiting. Denies any burning with urination. Labs are pending this morning. Objective - Vital Signs Vital signs: Vital Signs Temp 98.8 F 05/02/19 06:44 Pulse 63 05/02/19 06:44 Resp 16 05/02/19 06:44 BP 108/67 05/02/19 06:44 Pulse Ox 98 05/02/19 06:44 Intake & Output 05/01/19 05/02/19 05/02/19 18:59 06:59 18:59 Intake Total 1620 Output Total 300 Balance 1620 -300 Weight 71 kg Intake: Oral 1620 Output: Stool 300 Other: Voiding Method Toilet Toilet Diaper Incontinent # Voids 6 1 # Bowel Movements 6 3 - Exam Head normocephalic Neck supple Lungs clear to auscultation bilaterally no wheezing or crackles Heart regular rate and rhythm S1-S2, no rub or gallop Abdomen is soft diffuse tenderness ileostomy bag with liquidy stool nondistended positive bowel sounds no hepatosplenomegaly Extremities no edema Neuro alert and orientated to 3 Skin: Coccyx area stage I pressure ulcer no skin breakdown area is slightly red. - Labs CBC & Chem 7: 05/01/19 11:50 05/01/19 11:50 Labs: Abnormal Lab Results - Last 24 Hours (Table) 05/01/19 05/01/19 05/01/19 Range/Units 11:14 11:50 11:50 RBC 3.75 L (3.80-5.40) m/uL MCV 106.9 H (80.0-100.0) fL Plt Count 93 L (150-450) k/uL Lymphocytes # 0.9 L (1.0-4.8) k/uL PT (9.0-12.0) sec INR (<1.2) Potassium 3.3 L (3.5-5.1) mmol/L Carbon Dioxide 21 L (22-30) mmol/L Creatinine 1.09 H (0.52-1.04) mg/dL Glucose 242 H (74-99) mg/dL POC Glucose (mg/dL) 285 H (75-99) mg/dL Total Bilirubin 2.5 H (0.2-1.3) mg/dL AST 75 H (14-36) U/L Alkaline Phosphatase 260 H (38-126) U/L Ammonia (<30) umol/L Total Protein 6.2 L (6.3-8.2) g/dL Albumin 2.7 L (3.5-5.0) g/dL 05/01/19 05/01/19 05/01/19 Range/Units 11:50 13:47 16:42 RBC (3.80-5.40) m/uL MCV (80.0-100.0) fL Plt Count (150-450) k/uL Lymphocytes # (1.0-4.8) k/uL PT 15.0 H (9.0-12.0) sec INR 1.5 H (<1.2) Potassium (3.5-5.1) mmol/L Carbon Dioxide (22-30) mmol/L Creatinine (0.52-1.04) mg/dL Glucose (74-99) mg/dL POC Glucose (mg/dL) 138 H (75-99) mg/dL Total Bilirubin (0.2-1.3) mg/dL AST (14-36) U/L Alkaline Phosphatase (38-126) U/L Ammonia 63 H (<30) umol/L Total Protein (6.3-8.2) g/dL Albumin (3.5-5.0) g/dL 05/01/19 05/02/19 Range/Units 20:09 07:11 RBC (3.80-5.40) m/uL MCV (80.0-100.0) fL Plt Count (150-450) k/uL Lymphocytes # (1.0-4.8) k/uL PT (9.0-12.0) sec INR (<1.2) Potassium (3.5-5.1) mmol/L Carbon Dioxide (22-30) mmol/L Creatinine (0.52-1.04) mg/dL Glucose (74-99) mg/dL POC Glucose (mg/dL) 159 H 164 H (75-99) mg/dL Total Bilirubin (0.2-1.3) mg/dL AST (14-36) U/L Alkaline Phosphatase (38-126) U/L Ammonia (<30) umol/L Total Protein (6.3-8.2) g/dL Albumin (3.5-5.0) g/dL Microbiology - Last 24 Hours (Table) 04/30/19 19:25 Urine Culture - Preliminary Urine,Catheterized Group D Enterococcus Assessment and Plan Assessment: 1. Altered mental status changes likely due to hepatic encephalopathy. Computed tomography scan of the brain showing no acute changes. No evidence of infection continuing to her symptoms UTI ruled out. Chest x-rays negative. Alcohol level less than 10. 2. Hepatic encephalopathy: Ammonia level 44 on admission. Continue Xifaxan and lactulose. Patient seen by GI service lactulose a dose adjusted to 20 g by mouth 4 times a day. Xifaxan restarted here in the hospital. She is unable to take the Xifaxan at home due to being too expensive. 3. Vomiting and diarrhea at home possibly related to a gastroenteritis. Vomiting has resolved. c. diff is negative 4. Acute kidney injury: Likely related to dehydration from the vomiting and diarrhea. We'll repeat labs. If kidney functions worsen will add IV fluids. Creatinine 1.38 on admission 5. Chronic kidney disease stage III 6. History of hepatocellular carcinoma 7. History of liver cirrhosis 8. History of diabetes mellitus type 2 9. Vaginal candidiasis: We'll give 1 dose of Diflucan 10. Chronic thrombocytopenia likely related to her liver disease 11. Mild protein calorie malnutrition: Albumin 3.2. Add Glucerna shakes 12. Hypokalemia: Patient received potassium supplement. Continue to monitor. 13. Abdominal ascites due to patient's liver cirrhosis. Patient scheduled for paracentesis today. Consult PT OT GI prophylaxis Protonix and DVT prophylaxis SCDs I performed an examination of the patient and discussed their management with the physician Cable Mock Up Assembler. I have reviewed the Physician Cable Mock Up Assembler's notes and agree with the documented findings and plan of care
[2019-05-02] MEDS ORDERED: LEVOFLOXACIN 500 MG TAB PO SCH (12:00)
[2019-05-02] MEDS: ZINC OXIDE 20% OINT 28.4 GM TUBE TOPICAL SCH ×2 (12:19→21:04)
[2019-05-02 12:30] LABS: Glucose,Whole Blood 144 mg/dL (75-99)
[2019-05-02] MEDS: MORPHINE SULFATE ER 15 MG TABLET PO PRN (12:46)
--- NOTE | 2019-05-02 15:26 | US ---
Therapeutic paracentesis. DATE OF EXAM: 05/02/2019 CLINICAL HISTORY: Ascites The procedure was discussed with the patient. The risks, complications, benefits, and alternatives we re discussed and any questions were answered. Informed consent was obtained. The patient was placed s upine on the ultrasound table and prepped and draped in the usual sterile fashion. All elements of maximal barrier technique were utilized. Under ultrasound guidance, access into the left lower quadrant was obtained, via the paracentesis catheter system and direct ultrasound guidance . Approximately 1.4 liters of straw-colored fluid was removed. The patient was stable throughout the pr ocedure and remained stable upon discharge from Department of Radiology. IMPRESSION: Successful therapeutic paracentesis under ultrasound guidance.
[2019-05-02] MEDS: traMADol 50 MG TAB PO PRN (15:54)
[2019-05-02 16:07] LABS: Basophils % (A) 0 %; Eosinophils # (A) 0.2 k/uL (0-0.7); Eosinophils % (A) 3 %; HCT 36.6 % (34.0-46.0); HGB 11.7 gm/dL (11.4-16.0); Hypochromasia Slight; Lymphocytes # (A) 1.1 k/uL (1.0-4.8); Lymphocytes % (A) 18 %; MCH 34.9 pg (25.0-35.0); MCHC 31.8 g/dL (31.0-37.0); MCV 109.7 fL (80.0-100.0); Macrocytosis Marked; Mean Platelet Volume 9.2; Monocytes # (A) 0.3 k/uL (0-1.0); Monocytes % (A) 5 %; Neutrophils # (A) 4.6 k/uL (1.3-7.7); Neutrophils % (A) 72 %; RBC 3.34 m/uL (3.80-5.40); RDW 15.7 % (11.5-15.5); WBC 6.4 k/uL (3.8-10.6)
[2019-05-02 16:26] LABS: Albumin 2.5 g/dL (3.5-5.0); Calcium 8.4 mg/dL (8.4-10.2); Potassium 3.6 mmol/L (3.5-5.1); Total Protein 5.8 g/dL (6.3-8.2)
[2019-05-02 16:40] LABS: Platelet Count 86 k/uL (150-450)
[2019-05-02 17:21] LABS: Glucose,Whole Blood 297 mg/dL (75-99)
[2019-05-02 20:24] LABS: Glucose,Whole Blood 137 mg/dL (75-99)
[2019-05-02] MEDS: SODIUM CHLORIDE 0.9% 1,000 ML IV SCH (21:02)
[2019-05-03] MEDS: DAPTOmycin 500 MG in SODIUM CHLORIDE 0.9% 50 ML IVPB SCH (00:21)
[2019-05-03 07:08] LABS: Glucose,Whole Blood 129 mg/dL (75-99)
[2019-05-03] MEDS: INSULIN ASPART (NovoLOG) 100 UNIT/ML VIAL SQ SCH ×4 (09:19→21:31)
[2019-05-03] MEDS: POTASSIUM CHLORIDE ER 20 MEQ TAB.ER PO SCH ×3 (09:24→16:42)
[2019-05-03] MEDS: LACTULOSE 20 GM/30 ML CUP PO SCH ×4 (09:24→21:31)
[2019-05-03] MEDS: METOPROLOL TARTRATE 12.5 MG TAB PO SCH ×2 (09:25→21:30)
[2019-05-03] MEDS: DICYCLOMINE 20 MG TAB PO SCH ×3 (09:25→21:31)
[2019-05-03] MEDS: SODIUM BICARBONATE TAB 650 MG TAB PO SCH ×2 (09:25→21:31)
[2019-05-03] MEDS: CHOLECALCIFEROL 1,000 UNIT TAB PO SCH (09:25)
[2019-05-03] MEDS: PANTOPRAZOLE 40 MG TABLET PO SCH ×2 (09:25→21:31)
[2019-05-03] MEDS: RIFAXIMIN 550 MG TABLET PO SCH ×2 (09:25→21:30)
[2019-05-03] MEDS: MAGNESIUM OXIDE 400 MG TAB PO SCH (09:25)
[2019-05-03] MEDS: FERROUS SULFATE 325 MG TAB PO SCH ×2 (09:25→21:30)
[2019-05-03] MEDS: SUCRALFATE 1 GM TAB PO SCH ×4 (09:25→21:30)
[2019-05-03] MEDS: buPROPion SR 150 MG TABLET.ER PO SCH (09:25)
[2019-05-03] MEDS: INSULIN NPH 300 UNIT/3 ML VIAL SQ SCH ×2 (09:26→18:48)
[2019-05-03] MEDS: ZINC OXIDE 20% OINT 28.4 GM TUBE TOPICAL SCH ×2 (09:26→21:35)
[2019-05-03] MEDS: INSULIN REGULAR 100 UNIT/ML VIAL SQ SCH ×3 (09:26→18:50)
--- NOTE | 2019-05-03 10:42 | P.PN ---
Subjective Progress Note Date: 05/03/19 This is a 73-year-old female, patient of Dr. Kurtz. She has a known past medical history of hepatocellular carcinoma, liver cirrhosis, chronic kidney disease stage III and diabetes mellitus. Patient presents to the emergency room with altered mental status changes. Per patient she had been doing well she left [facility] [place] of the about a week ago she was there for rehabilitation. She reports taking all of her medications including the lactulose. The Xifaxan she does not take at home because it is too expensive. She was brought in to the emergency room due to worsening mental status changes yesterday per the [id number]. Patient reports she felt that she was in a fog. She was having difficulty even getting dressed in the morning And is also having difficulty with her speech. She denies any weakness on one side of the body. She denies any fever, chills, sweats, chest pain or shortness of breath. Denies any burning with urination. She was having some nausea and vomiting. Patient states she is having a lot of liquidy stool through her ileostomy. Patient does report having a lot of loose stools. Due to her recent hospitalizations we'll be ordering a stool for C. diff. Alcohol level was less than 10 urinalysis was negative computed tomography scan range in no acute changes chest x-rays negative. EKG normal sinus rhythm. Ammonia elevated at 44 she was given an extra dose of lactulose in the ER. Creatinine 1.38. She was discharged on April 17 for [facility] and at that time was felt for mental status changes and elevated troponins and acute coronary syndrome was ruled out. 05/02/19 patient still complaining of not feeling well some abdominal discomfort and decrease in appetite. She had abdominal ultrasound showing moderate ascites. She has been seen by GI service. She is scheduled for paracentesis later today. Stool for C. diff was negative. She does have a stage I coccyx ulcer developing. Zinc oxide has been ordered. Patient educated to stay off the area. She denies any chest pain or shortness of breath. Denies any vomiting. Denies any burning with urination. Labs are pending this morning. On 05/03/2019 patient is feeling improved today. Patient did undergo paracentesis in which she received 1.4 L off. Urine culture has a for VRE. Antibiotics has been switched to daptomycin. At this time patient denies nausea vomiting or diarrhea. Patient denies chest pain or shortness breath. Patient denies any urinary burning or frequency. Objective - Vital Signs Vital signs: Vital Signs Temp 98.3 F 05/03/19 04:45 Pulse 53 L 05/03/19 04:45 Resp 20 05/03/19 04:45 BP 100/58 05/03/19 04:45 Pulse Ox 98 05/03/19 04:45 Intake & Output 05/02/19 05/03/19 05/03/19 18:59 06:59 18:59 Intake Total 540 Balance 540 Intake: Oral 540 Other: Voiding Method Toilet Incontinent # Voids 2 2 # Bowel Movements 3 - Exam Head normocephalic Neck supple Lungs clear to auscultation bilaterally no wheezing or crackles Heart regular rate and rhythm S1-S2, no rub or gallop Abdomen is soft diffuse tenderness ileostomy bag with liquidy stool nondistended positive bowel sounds no hepatosplenomegaly Extremities no edema Neuro alert and orientated to 3 Skin: Coccyx area stage I pressure ulcer no skin breakdown area is slightly red. - Labs CBC & Chem 7: 05/02/19 15:54 05/02/19 15:54 Labs: Abnormal Lab Results - Last 24 Hours (Table) 05/02/19 05/02/19 05/02/19 Range/Units 12:25 15:54 15:54 RBC 3.34 L (3.80-5.40) m/uL MCV 109.7 H (80.0-100.0) fL RDW 15.7 H (11.5-15.5) % Plt Count 86 L (150-450) k/uL Macrocytosis Marked A Chloride 110 H (98-107) mmol/L Creatinine 1.20 H (0.52-1.04) mg/dL Glucose 231 H (74-99) mg/dL POC Glucose (mg/dL) 144 H (75-99) mg/dL Total Bilirubin 2.0 H (0.2-1.3) mg/dL AST 57 H (14-36) U/L Alkaline Phosphatase 261 H (38-126) U/L Total Protein 5.8 L (6.3-8.2) g/dL Albumin 2.5 L (3.5-5.0) g/dL 05/02/19 05/02/19 05/03/19 Range/Units 17:16 20:04 06:58 RBC (3.80-5.40) m/uL MCV (80.0-100.0) fL RDW (11.5-15.5) % Plt Count (150-450) k/uL Macrocytosis Chloride (98-107) mmol/L Creatinine (0.52-1.04) mg/dL Glucose (74-99) mg/dL POC Glucose (mg/dL) 297 H 137 H 129 H (75-99) mg/dL Total Bilirubin (0.2-1.3) mg/dL AST (14-36) U/L Alkaline Phosphatase (38-126) U/L Total Protein (6.3-8.2) g/dL Albumin (3.5-5.0) g/dL Microbiology - Last 24 Hours (Table) 04/30/19 19:25 Urine Culture - Final Urine,Catheterized Enterococcus faecium VRE Assessment and Plan Assessment: 1. Altered mental status changes likely due to hepatic encephalopathy. Computed tomography scan of the brain showing no acute changes. No evidence of infection continuing to her symptoms UTI ruled out. Chest x-rays negative. Alcohol level less than 10. 2. Acute hepatic encephalopathy with elevated ammonia level secondary to non- alcoholic liver cirrhosis and hepatocellular carcinoma: Ammonia level 44 on admission. Continue Xifaxan and lactulose. Patient seen by GI service lactulose a dose adjusted to 20 g by mouth 4 times a day. Xifaxan restarted here in the hospital. She is unable to take the Xifaxan at home due to being too expensive. 3. Urinary tract infection positive for VRE. Antibiotics have been switched to daptomycin 4. Acute kidney injury: Likely related to dehydration from the vomiting and diarrhea. We'll repeat labs. If kidney functions worsen will add IV fluids. Creatinine 1.38 on admission 5. Chronic kidney disease stage III 6. History of hepatocellular carcinoma 7. History of liver cirrhosis 8. Vomiting and diarrhea at home possibly related to a gastroenteritis. Vomiting has resolved. c. diff is negative 9. Vaginal candidiasis: We'll give 1 dose of Diflucan 10. Chronic thrombocytopenia likely related to her liver disease 11. Mild protein calorie malnutrition: Albumin 3.2. Add Glucerna shakes 12. Hypokalemia: Patient received potassium supplement. Continue to monitor. 13. Abdominal ascites due to patient's liver cirrhosis. Status post paracentesis on 05/02/2019 1.4 later removed 14. History of diabetes mellitus type 2 15. Stage I pressure ulcer on the coccyx area. Add zinc oxide twice a day. Keep pressure off of the area. DVT prophylaxis SCDs. GI prophylaxis Protonix PT OT consult Social consult for discharge planning I performed an examination of the patient and discussed their management with the Nurse Practitioner. I have reviewed the Nurse Practitioner's notes and agree with the documented findings and plan of care
[2019-05-03 10:44] LABS: Basophils % (A) 1 %; Eosinophils # (A) 0.2 k/uL (0-0.7); Eosinophils % (A) 5 %; HCT 36.8 % (34.0-46.0); HGB 11.5 gm/dL (11.4-16.0); Hypochromasia Slight; Lymphocytes # (A) 0.9 k/uL (1.0-4.8); Lymphocytes % (A) 21 %; MCH 34.9 pg (25.0-35.0); MCHC 31.3 g/dL (31.0-37.0); MCV 111.5 fL (80.0-100.0); Macrocytosis Marked; Monocytes # (A) 0.3 k/uL (0-1.0); Monocytes % (A) 7 %; Neutrophils % (A) 65 %; RDW 15.7 % (11.5-15.5); WBC 4.6 k/uL (3.8-10.6)
[2019-05-03 10:49] LABS: Platelet Count 76 k/uL (150-450)
[2019-05-03 10:57] LABS: Albumin 2.3 g/dL (3.5-5.0); Calcium 7.7 mg/dL (8.4-10.2); Total Bilirubin 1.6 mg/dL (0.2-1.3); Total Protein 5.4 g/dL (6.3-8.2)
[2019-05-03 11:45] LABS: Glucose,Whole Blood 299 mg/dL (75-99)
--- NOTE | 2019-05-03 12:47 | P.PN ---
Subjective Progress Note Date: 05/03/19 Principal diagnosis: Hepatic encephalopathy Ammonia normalize. Paracentesis yesterday 1.4 L removed. Feels better. Receiving antibiotics for VRE UTI. Objective - Vital Signs Vital signs: Vital Signs Temp 98.4 F 05/03/19 12:18 Pulse 51 L 05/03/19 12:18 Resp 16 05/03/19 12:18 BP 93/55 05/03/19 12:18 Pulse Ox 99 05/03/19 12:18 Intake & Output 05/02/19 05/03/19 05/03/19 18:59 06:59 18:59 Intake Total 540 Balance 540 Intake: Oral 540 Other: Voiding Method Toilet Toilet Incontinent Incontinent # Voids 2 2 # Bowel Movements 3 - Exam General appearance: The patient is alert, oriented, in no acute distress. HET: Head is normocephalic and atraumatic. Pupils are equal and reactive. Oropharynx is clear without lesions. Neck: Supple without lymphadenopathy. Trachea midline. Heart: S1 S2. Regular rate and rhythm. Lungs: No crackles or wheezes are heard. Abdomen: Soft, nontender, nondistended with bowel sounds. No peritoneal signs. No palpable organomegaly or masses. Extremities: Normal skin color and turgor. No cyanosis, rash, ulceration, clubbing, or edema. Radial and pedal pulses are 2/4 bilaterally. Neurological: No focal deficits. Strength and sensation are grossly intact. - Labs CBC & Chem 7: 05/03/19 10:22 05/03/19 10:22 Labs: Abnormal Lab Results - Last 24 Hours (Table) 05/02/19 05/02/19 05/02/19 Range/Units 15:54 15:54 17:16 RBC 3.34 L (3.80-5.40) m/uL MCV 109.7 H (80.0-100.0) fL RDW 15.7 H (11.5-15.5) % Plt Count 86 L (150-450) k/uL Lymphocytes # (1.0-4.8) k/uL Macrocytosis Marked A Potassium (3.5-5.1) mmol/L Chloride 110 H (98-107) mmol/L Carbon Dioxide (22-30) mmol/L Creatinine 1.20 H (0.52-1.04) mg/dL Glucose 231 H (74-99) mg/dL POC Glucose (mg/dL) 297 H (75-99) mg/dL Calcium (8.4-10.2) mg/dL Total Bilirubin 2.0 H (0.2-1.3) mg/dL AST 57 H (14-36) U/L Alkaline Phosphatase 261 H (38-126) U/L Total Protein 5.8 L (6.3-8.2) g/dL Albumin 2.5 L (3.5-5.0) g/dL 05/02/19 05/03/19 05/03/19 Range/Units 20:04 06:58 10:22 RBC 3.30 L (3.80-5.40) m/uL MCV 111.5 H (80.0-100.0) fL RDW 15.7 H (11.5-15.5) % Plt Count 76 L (150-450) k/uL Lymphocytes # 0.9 L (1.0-4.8) k/uL Macrocytosis Marked A Potassium (3.5-5.1) mmol/L Chloride (98-107) mmol/L Carbon Dioxide (22-30) mmol/L Creatinine (0.52-1.04) mg/dL Glucose (74-99) mg/dL POC Glucose (mg/dL) 137 H 129 H (75-99) mg/dL Calcium (8.4-10.2) mg/dL Total Bilirubin (0.2-1.3) mg/dL AST (14-36) U/L Alkaline Phosphatase (38-126) U/L Total Protein (6.3-8.2) g/dL Albumin (3.5-5.0) g/dL 05/03/19 05/03/19 Range/Units 10:22 11:39 RBC (3.80-5.40) m/uL MCV (80.0-100.0) fL RDW (11.5-15.5) % Plt Count (150-450) k/uL Lymphocytes # (1.0-4.8) k/uL Macrocytosis Potassium 3.0 L (3.5-5.1) mmol/L Chloride 108 H (98-107) mmol/L Carbon Dioxide 21 L (22-30) mmol/L Creatinine 1.35 H (0.52-1.04) mg/dL Glucose 295 H (74-99) mg/dL POC Glucose (mg/dL) 299 H (75-99) mg/dL Calcium 7.7 L (8.4-10.2) mg/dL Total Bilirubin 1.6 H (0.2-1.3) mg/dL AST 49 H (14-36) U/L Alkaline Phosphatase 241 H (38-126) U/L Total Protein 5.4 L (6.3-8.2) g/dL Albumin 2.3 L (3.5-5.0) g/dL Microbiology - Last 24 Hours (Table) 04/30/19 19:25 Urine Culture - Final Urine,Catheterized Enterococcus faecium VRE Assessment and Plan (1) Hepatic encephalopathy Narrative/Plan: 73-year-old female with a history of nonalcoholic liver cirrhosis liver carcinoma status post chemoembolization presents with acute process changes elevated ammonia consistent with acute hepatic encephalopathy possibly triggered secondary to underlying UTI group D enterococcus. Current Visit: Yes Status: Acute Code(s): K72.90 - HEPATIC FAILURE, UNSPECIFIED WITHOUT COMA SNOMED Code(s): 14321526 (2) Cirrhosis of liver with ascites Current Visit: Yes Status: Acute Code(s): K74.60 - UNSPECIFIED CIRRHOSIS OF LIVER; R18.8 - OTHER ASCITES SNOMED Code(s): 96992524 (3) UTI (urinary tract infection) Narrative/Plan: VRE Current Visit: Yes Status: Acute Code(s): N39.0 - URINARY TRACT INFECTION, SITE NOT SPECIFIED SNOMED Code(s): 31724220 Plan: 1. Continue present medical therapy. Lactulose 20 g 3 times a day Xifaxan 550 twice daily. No further workup from a GI standpoint. We'll be available for questions or concerns. Assessment and plan a care discussed with Dr. Lomas
[2019-05-03] MEDS ORDERED: Potassium Replacement Protocol 1 EACH MISC MISCELLANE PRN (13:24)
[2019-05-03 17:12] LABS: Glucose,Whole Blood 135 mg/dL (75-99)
[2019-05-03 20:51] LABS: Glucose,Whole Blood 181 mg/dL (75-99)
[2019-05-03] MEDS: SODIUM CHLORIDE 0.9% 1,000 ML IV SCH (21:36)
[2019-05-04] MEDS: DAPTOmycin 500 MG in SODIUM CHLORIDE 0.9% 50 ML IVPB SCH (00:58)
[2019-05-04 07:14] LABS: Glucose,Whole Blood 129 mg/dL (75-99)
[2019-05-04] MEDS: INSULIN REGULAR 100 UNIT/ML VIAL SQ SCH ×3 (08:41→17:35)
[2019-05-04] MEDS: INSULIN NPH 300 UNIT/3 ML VIAL SQ SCH ×2 (08:41→17:36)
[2019-05-04] MEDS: INSULIN ASPART (NovoLOG) 100 UNIT/ML VIAL SQ SCH ×4 (08:42→21:35)
[2019-05-04] MEDS: CHOLECALCIFEROL 1,000 UNIT TAB PO SCH (08:43)
[2019-05-04] MEDS: MAGNESIUM OXIDE 400 MG TAB PO SCH (08:43)
[2019-05-04] MEDS: METOPROLOL TARTRATE 12.5 MG TAB PO SCH ×3 (08:43→21:35)
[2019-05-04] MEDS: FERROUS SULFATE 325 MG TAB PO SCH ×2 (08:43→21:35)
[2019-05-04] MEDS: POTASSIUM CHLORIDE ER 20 MEQ TAB.ER PO SCH (08:43)
[2019-05-04] MEDS: PANTOPRAZOLE 40 MG TABLET PO SCH ×2 (08:43→21:35)
[2019-05-04] MEDS: SODIUM BICARBONATE TAB 650 MG TAB PO SCH ×2 (08:43→21:35)
[2019-05-04] MEDS: DICYCLOMINE 20 MG TAB PO SCH ×3 (08:43→21:35)
[2019-05-04] MEDS: SUCRALFATE 1 GM TAB PO SCH ×4 (08:44→21:35)
[2019-05-04] MEDS: buPROPion SR 150 MG TABLET.ER PO SCH (08:44)
[2019-05-04] MEDS: TORSEMIDE 20 MG TAB PO SCH (08:44)
[2019-05-04] MEDS: RIFAXIMIN 550 MG TABLET PO SCH ×2 (08:44→21:35)
[2019-05-04] MEDS: LACTULOSE 20 GM/30 ML CUP PO SCH ×4 (08:45→21:35)
[2019-05-04] MEDS: ZINC OXIDE 20% OINT 28.4 GM TUBE TOPICAL SCH ×2 (08:53→21:36)
[2019-05-04 09:22] LABS: Albumin 2.6 g/dL (3.5-5.0); Calcium 8.4 mg/dL (8.4-10.2); Magnesium 1.8 mg/dL (1.6-2.3); Potassium 4.3 mmol/L (3.5-5.1); Total Bilirubin 1.5 mg/dL (0.2-1.3); Total Protein 5.9 g/dL (6.3-8.2)
[2019-05-04 09:34] LABS: Basophils % (A) 1 %; Eosinophils # (A) 0.3 k/uL (0-0.7); Eosinophils % (A) 5 %; HCT 38.2 % (34.0-46.0); HGB 12.3 gm/dL (11.4-16.0); Lymphocytes # (A) 1.3 k/uL (1.0-4.8); Lymphocytes % (A) 21 %; MCH 34.6 pg (25.0-35.0); MCHC 32.2 g/dL (31.0-37.0); MCV 107.3 fL (80.0-100.0); Macrocytosis Moderate; Mean Platelet Volume 9.3; Monocytes # (A) 0.3 k/uL (0-1.0); Monocytes % (A) 5 %; Neutrophils # (A) 4.2 k/uL (1.3-7.7); Neutrophils % (A) 66 %; RBC 3.56 m/uL (3.80-5.40); RDW 15.7 % (11.5-15.5); WBC 6.4 k/uL (3.8-10.6)
[2019-05-04 09:36] LABS: Platelet Count 82 k/uL (150-450)
--- NOTE | 2019-05-04 10:43 | P.PN ---
Subjective Progress Note Date: 05/04/19 This is a 73-year-old female, patient of Dr. Kurtz. She has a known past medical history of hepatocellular carcinoma, liver cirrhosis, chronic kidney disease stage III and diabetes mellitus. Patient presents to the emergency room with altered mental status changes. Per patient she had been doing well she left [facility] about a week ago she was there for rehabilitation. She reports taking all of her medications including the lactulose. The Xifaxan she does not take at home because it is too expensive. She was brought in to the emergency room due to worsening mental status changes yesterday per the [id number]. Patient reports she felt that she was in a fog. She was having difficulty even getting dressed in the morning And is also having difficulty with her speech. She denies any weakness on one side of the body. She denies any fever, chills, sweats, chest pain or shortness of breath. Denies any burning with urination. She was having some nausea and vomiting. Patient states she is having a lot of liquidy stool through her ileostomy. Patient does report having a lot of loose stools. Due to her recent hospitalizations we'll be ordering a stool for C. diff. Alcohol level was less than 10 urinalysis was negative computed tomography scan range in no acute changes chest x-rays negative. EKG normal sinus rhythm. Ammonia elevated at 44 she was given an extra dose of lactulose in the ER. Creatinine 1.38. She was discharged on April 17 for [facility] and at that time was felt for mental status changes and elevated troponins and acute coronary syndrome was ruled out. 05/02/19 patient still complaining of not feeling well some abdominal discomfort and decrease in appetite. She had abdominal ultrasound showing moderate ascites. She has been seen by GI service. She is scheduled for paracentesis later today. Stool for C. diff was negative. She does have a stage I coccyx ulcer developing. Zinc oxide has been ordered. Patient educated to stay off the area. She denies any chest pain or shortness of breath. Denies any vomiting. Denies any burning with urination. Labs are pending this morning. On 05/03/2019 patient is feeling improved today. Patient did undergo paracentesis in which she received 1.4 L off. Urine culture has a for VRE. Antibiotics has been switched to daptomycin. At this time patient denies nausea vomiting or diarrhea. Patient denies chest pain or shortness breath. Patient denies any urinary burning or frequency. 05/04/2019 patient lying comfortably. She is currently on daptomycin for VRE in her urine. Infectious disease on consult awaiting their recommendations. Patient complaining of some urinary retention-like symptoms. She feels that she's 19 the bladder fully and having some hesitancy when she urinates. Denies any burning with urination. Bladder scan has been ordered to check postvoid re sidual. Ammonia level is normal at 25. Creatinine has come down from 1.35- 1.30. She had 1.4 L removed during her paracentesis. Patient does report changing her ileostomy bag seventh through the night. Nursing staff reporting that she's only changing it twice during the day. Objective - Vital Signs Vital signs: Vital Signs Temp 98.3 F 05/04/19 04:50 Pulse 53 L 05/04/19 04:50 Resp 20 05/04/19 04:50 BP 96/60 05/04/19 04:50 Pulse Ox 98 05/04/19 04:50 Intake & Output 05/03/19 05/04/19 05/04/19 18:59 06:59 18:59 Intake Total 700 Balance 700 Intake: Oral 700 Other: Voiding Method Toilet Incontinent # Voids 3 1 # Bowel Movements 4 - Exam Head normocephalic Neck supple Lungs clear to auscultation bilaterally no wheezing or crackles Heart regular rate and rhythm S1-S2, no rub or gallop Abdomen is soft diffuse tenderness ileostomy bag with liquidy stool nondistended positive bowel sounds no hepatosplenomegaly Extremities no edema Neuro alert and orientated to 3 Skin: Coccyx area stage I pressure ulcer no skin breakdown area is slightly red. - Labs CBC & Chem 7: 05/04/19 08:48 05/04/19 08:48 Labs: Abnormal Lab Results - Last 24 Hours (Table) 05/03/19 05/03/19 05/03/19 Range/Units 10:22 10:22 11:39 RBC 3.30 L (3.80-5.40) m/uL MCV 111.5 H (80.0-100.0) fL RDW 15.7 H (11.5-15.5) % Plt Count 76 L (150-450) k/uL Lymphocytes # 0.9 L (1.0-4.8) k/uL Macrocytosis Marked A Sodium (137-145) mmol/L Potassium 3.0 L (3.5-5.1) mmol/L Chloride 108 H (98-107) mmol/L Carbon Dioxide 21 L (22-30) mmol/L Creatinine 1.35 H (0.52-1.04) mg/dL Glucose 295 H (74-99) mg/dL POC Glucose (mg/dL) 299 H (75-99) mg/dL Calcium 7.7 L (8.4-10.2) mg/dL Total Bilirubin 1.6 H (0.2-1.3) mg/dL AST 49 H (14-36) U/L Alkaline Phosphatase 241 H (38-126) U/L Ammonia (<30) umol/L Total Protein 5.4 L (6.3-8.2) g/dL Albumin 2.3 L (3.5-5.0) g/dL 05/03/19 05/03/19 05/04/19 Range/Units 16:58 20:46 07:12 RBC (3.80-5.40) m/uL MCV (80.0-100.0) fL RDW (11.5-15.5) % Plt Count (150-450) k/uL Lymphocytes # (1.0-4.8) k/uL Macrocytosis Sodium (137-145) mmol/L Potassium (3.5-5.1) mmol/L Chloride (98-107) mmol/L Carbon Dioxide (22-30) mmol/L Creatinine (0.52-1.04) mg/dL Glucose (74-99) mg/dL POC Glucose (mg/dL) 135 H 181 H 129 H (75-99) mg/dL Calcium (8.4-10.2) mg/dL Total Bilirubin (0.2-1.3) mg/dL AST (14-36) U/L Alkaline Phosphatase (38-126) U/L Ammonia (<30) umol/L Total Protein (6.3-8.2) g/dL Albumin (3.5-5.0) g/dL 05/04/19 05/04/19 05/04/19 Range/Units 08:48 08:48 08:48 RBC 3.56 L (3.80-5.40) m/uL MCV 107.3 H (80.0-100.0) fL RDW 15.7 H (11.5-15.5) % Plt Count 82 L (150-450) k/uL Lymphocytes # (1.0-4.8) k/uL Macrocytosis Sodium 136 L (137-145) mmol/L Potassium (3.5-5.1) mmol/L Chloride 113 H (98-107) mmol/L Carbon Dioxide 16 L (22-30) mmol/L Creatinine 1.30 H (0.52-1.04) mg/dL Glucose 215 H (74-99) mg/dL POC Glucose (mg/dL) (75-99) mg/dL Calcium (8.4-10.2) mg/dL Total Bilirubin 1.5 H (0.2-1.3) mg/dL AST 59 H (14-36) U/L Alkaline Phosphatase 313 H (38-126) U/L Ammonia 93 H (<30) umol/L Total Protein 5.9 L (6.3-8.2) g/dL Albumin 2.6 L (3.5-5.0) g/dL Microbiology - Last 24 Hours (Table) 04/30/19 19:25 Urine Culture - Final Urine,Catheterized Enterococcus faecium VRE Assessment and Plan Assessment: 1. Altered mental status changes likely due to acute hepatic encephalopathy also may be an underlying acute metabolic encephalopathy due to UTI. Computed tomography scan of the brain showing no acute changes. No evidence of infection continuing to her symptoms UTI ruled out. Chest x-rays negative. Alcohol level less than 10. 2. Acute hepatic encephalopathy with elevated ammonia level secondary to non- alcoholic liver cirrhosis and hepatocellular carcinoma: Ammonia level 44 on admission. Continue Xifaxan and lactulose. Patient seen by GI service lactulose a dose adjusted to 20 g by mouth 4 times a day. Xifaxan restarted here in the hospital. She is unable to take the Xifaxan at home due to being too expensive. 3. Urinary tract infection positive for VRE. Antibiotics have been switched to daptomycin 4. Acute kidney injury: Likely related to dehydration from the vomiting and di arrhea. We'll repeat labs. If kidney functions worsen will add IV fluids. Creatinine 1.38 on admission 5. Chronic kidney disease stage III 6. History of hepatocellular carcinoma 7. History of liver cirrhosis 8. Vomiting and diarrhea at home possibly related to a gastroenteritis. Vomiting has resolved. c. diff is negative 9. Vaginal candidiasis: We'll give 1 dose of Diflucan 10. Chronic thrombocytopenia likely related to her liver disease 11. Mild protein calorie malnutrition: Albumin 3.2. Add Glucerna shakes 12. Hypokalemia: Patient received potassium supplement. Continue to monitor. 13. Abdominal ascites due to patient's liver cirrhosis. Status post paracentesis on 05/02/2019 1.4 later removed 14. History of diabetes mellitus type 2 15. Stage I pressure ulcer on the coccyx area present on admission. Add zinc oxide twice a day. Keep pressure off of the area. I performed an examination of the patient and discussed their management with the physician Teradata Developer. I have reviewed the Physician Teradata Developer's notes and agree with the documented findings and plan of care
[2019-05-04 12:15] LABS: Glucose,Whole Blood 147 mg/dL (75-99)
[2019-05-04 15:31] LABS: Appearance,Urine Clear (Clear); Bilirubin,Urine Negative (Negative); Blood,Urine Negative (Negative); Color,Urine Light Yellow; Glucose,Urine (UA) Negative (Negative); Ketones,Urine Negative (Negative); Leukocyte Esterase,Urine Negative (Negative); Nitrite,Urine Negative (Negative); Protein,Urine Negative (Negative); Specific Gravity,Urine 1.007 (1.001-1.035); Urobilinogen,Urine <2.0 mg/dL (<2.0)
[2019-05-04 16:39] LABS: Glucose,Whole Blood 204 mg/dL (75-99)
[2019-05-04] MEDS: MORPHINE SULFATE ER 15 MG TABLET PO PRN (17:41)
[2019-05-04] MEDS: SODIUM CHLORIDE 0.9% 1,000 ML IV SCH (20:04)
[2019-05-04 20:48] LABS: Glucose,Whole Blood 156 mg/dL (75-99)
[2019-05-05] MEDS: DAPTOmycin 500 MG in SODIUM CHLORIDE 0.9% 50 ML IVPB SCH (00:33)
[2019-05-05 06:43] VITALS: BP 92/52; PULSE 61; RESP 17; TEMP 97.8
--- NOTE | 2019-05-05 06:48 | P.CONS ---
History of Present Illness - Reason for Consult Consult date: 05/04/19 Positive urine culture with VRE Requesting physician: Artemio Lea - Chief Complaint Weakness and mental status changes x few days - History of Present Illness Patient is a 73 year female with past medical history significant for cirrhosis of the liver in this patient who has been brought to the [facility] with a chief complaints of mental status changes and 14 units of her brain symptom has been going on for a day or 2 before the patient was brought to the hospital patient also been complaining of severe weakness and having difficulty getting herself dressed up no clear history of any fever or chills no headache and no chest pain or shortness of breath or cough no abdominal pain however the patient did have a significant liquid stool output in ileostomy, with the symptoms and the patient has been evaluated and admitted hospital for further management patient ammonia level was 44 chest is were negative for any pneumonia CT of the brain was negative for any bleed status post CD4 is negative patient did have a UA that was essentially normal however the urine culture came back positive with VRE that prompted this infectious disease consultation, patient currently denies any burning or frequency of urine and no suprapubic or flank pain Review of Systems Positive points has been mentioned in HPI rest of the systems negative Past Medical History Past Medical History: Cancer, Diabetes Mellitus, GERD/Reflux, Hypertension, Liver Disease, Myocardial Infarction ([place]), Renal Disease Additional Past Medical History / Comment(s): Hepatocellular liver cancer with chemo immobilization-last time being 2017, ascities with paracentesis's , iva lcoholic liver cirrhosis, chronic pancytopenia, chronic elevated ammonia levels, hepatic encephalopathy, chronic elevated LFTs, chronic abdominal pain, stomach ulcer, diverticular disease with ileostomy, IDDM type II, iron anemia, CKD stage III, nonsustained vtach, UTI, high ammonia levels Last Myocardial Infarction Date:: unk History of Any Multi-Drug Resistant Organisms: MRSA Year Discovered:: 12/30/18 MDRO Source:: Urine Past Surgical History: Appendectomy, Bowel Resection, Section, Cholecystectomy, Hysterectomy, Tonsillectomy Additional Past Surgical History / Comment(s): Chemo immobilizations, liver biopsies, paracentesis, bowel resection d/t diverticulitis/ileostomy, R rotator cuff repair, carpal tunnel release-laterality unknown. Past Anesthesia/Blood Transfusion Reactions: No Reported Reaction Past Psychological History: Anxiety, Depression Additional Psychological History / Comment(s): pt resides at [facility] [phone] Reformed smoker. . Retired. No experience. No animal exposures Smoking Status: Never smoker Past Alcohol Use History: None Reported Additional Past Alcohol Use History / Comment(s): started smoking 1962 and quit 1965 Past Drug Use History: None Reported - Past Family History Mother History Unknown: Yes Family Medical History: Congestive Heart Failure (CHF) Additional Family Medical History / Comment(s): Mother is 94 yrs old. Father Family Medical History: Chest Pain / Angina Additional Family Medical History / Comment(s): Father is . Medications and Allergies Home Medications Medication Instructions Recorded Confirmed Type Omeprazole [PriLOSEC] 20 mg PO BID 10/23/18 04/30/19 History Sucralfate [Carafate] 1 gm PO QID 10/23/18 04/30/19 History Insulin Regular, Human [NovoLIN R] 10 unit SQ AC-TID 10/24/18 04/30/19 History buPROPion SR [Wellbutrin SR] 150 mg PO DAILY #30 tablet.er 12/21/18 04/30/19 Rx Magnesium Oxide [William] 500 mg PO DAILY 12/30/18 04/30/19 History Cholecalciferol [Vitamin D3 (25 4,000 unit PO DAILY 01/16/19 04/30/19 History Mcg = 1000 Iu)] Ferrous Sulfate [Iron (65 MG 325 mg PO BID 01/31/19 04/30/19 History Elemental)] Insulin NPH [humuLIN N] 18 unit SQ BID vial 02/06/19 04/30/19 Rx Dicyclomine [Bentyl] 20 mg PO TID 30 Days #180 cap 03/31/19 04/30/19 Rx Lactulose [Cephulac] 45 gm PO TID 04/07/19 04/30/19 History Morphine Sulfate ER [Ms Contin] 15 mg PO Q12HR 3 Days #6 tablet 04/17/19 04/30/19 Rx Rifaximin [Xifaxan] 550 mg PO BID tablet 04/17/19 04/30/19 Rx Sodium Bicarbonate Tab 1,300 mg PO BID tab 04/17/19 04/30/19 Rx Torsemide [Demadex] 20 mg PO Q48H 30 Days #30 tab 04/17/19 04/30/19 Rx Potassium Chloride [Klor-Con 20] 20 meq PO DAILY 04/21/19 04/30/19 History Metoprolol Tartrate [Lopressor] 12.5 mg PO BID 04/30/19 04/30/19 History Nitrofurantoin Monohyd/M-Cryst 100 mg PO BID 04/30/19 04/30/19 History [Macrobid] Allergies Allergy/AdvReac Type Severity Reaction Status Date / Time amlodipine Allergy Rash/Hives Verified 04/30/19 17:23 oxycodone Allergy Rash/Hives Verified 04/30/19 17:23 Penicillins Allergy Rash/Hives Verified 04/30/19 17:23 hydromorphone [From Dilaudid] AdvReac Mild tactile Verified 04/30/19 17:23 disturbance GREG Inhibitors AdvReac Cough Verified 04/30/19 17:23 sodium dodecyclbenzene Allergy Rash/Hives Uncoded 04/21/19 15:45 sulfonate Physical Exam Vitals: Vital Signs Temp Pulse Resp BP Pulse Ox 05/04/19 04:50 98.3 F 53 L 20 96/60 98 05/03/19 21:20 98 F 56 L 20 97/55 98 05/03/19 12:18 98.4 F 51 L 16 93/55 99 Intake and Output 05/03/19 05/04/19 05/04/19 22:59 06:59 14:59 Intake Total 600 100 Balance 600 100 Intake: Oral 600 100 Other: # Voids 2 1 GENERAL DESCRIPTION: An elderly female lying in bed, no distress. No tachypnea or accessory muscle of respiration use. HEENT: Shows Pallor , no scleral icterus. Oral mucous membrane is dry. No phary ngeal erythema or thrush NECK: Trachea central, no thyromegaly. LUNGS: Unlabored breathing. Clear to auscultation anteriorly. No wheeze or crackle. HEART: S1, S2, regular rate and rhythm. No loud murmur ABDOMEN: Soft, no tenderness , guarding or rigidity, no organomegaly EXTREMITIES: No edema of feet. SKIN: No rash, no masses palpable. NEUROLOGICAL: The patient is awake, alert, oriented x3, mood and affect normal Results CBC & Chem 7: 05/04/19 08:48 05/04/19 08:48 Labs: Abnormal Lab Results - Last 24 Hours (Table) 05/03/19 05/03/19 05/03/19 Range/Units 10:22 10:22 11:39 RBC 3.30 L (3.80-5.40) m/uL MCV 111.5 H (80.0-100.0) fL RDW 15.7 H (11.5-15.5) % Plt Count 76 L (150-450) k/uL Lymphocytes # 0.9 L (1.0-4.8) k/uL Macrocytosis Marked A Sodium (137-145) mmol/L Potassium 3.0 L (3.5-5.1) mmol/L Chloride 108 H (98-107) mmol/L Carbon Dioxide 21 L (22-30) mmol/L Creatinine 1.35 H (0.52-1.04) mg/dL Glucose 295 H (74-99) mg/dL POC Glucose (mg/dL) 299 H (75-99) mg/dL Calcium 7.7 L (8.4-10.2) mg/dL Total Bilirubin 1.6 H (0.2-1.3) mg/dL AST 49 H (14-36) U/L Alkaline Phosphatase 241 H (38-126) U/L Ammonia (<30) umol/L Total Protein 5.4 L (6.3-8.2) g/dL Albumin 2.3 L (3.5-5.0) g/dL 05/03/19 05/03/19 05/04/19 Range/Units 16:58 20:46 07:12 RBC (3.80-5.40) m/uL MCV (80.0-100.0) fL RDW (11.5-15.5) % Plt Count (150-450) k/uL Lymphocytes # (1.0-4.8) k/uL Macrocytosis Sodium (137-145) mmol/L Potassium (3.5-5.1) mmol/L Chloride (98-107) mmol/L Carbon Dioxide (22-30) mmol/L Creatinine (0.52-1.04) mg/dL Glucose (74-99) mg/dL POC Glucose (mg/dL) 135 H 181 H 129 H (75-99) mg/dL Calcium (8.4-10.2) mg/dL Total Bilirubin (0.2-1.3) mg/dL AST (14-36) U/L Alkaline Phosphatase (38-126) U/L Ammonia (<30) umol/L Total Protein (6.3-8.2) g/dL Albumin (3.5-5.0) g/dL 05/04/19 05/04/19 05/04/19 Range/Units 08:48 08:48 08:48 RBC 3.56 L (3.80-5.40) m/uL MCV 107.3 H (80.0-100.0) fL RDW 15.7 H (11.5-15.5) % Plt Count 82 L (150-450) k/uL Lymphocytes # (1.0-4.8) k/uL Macrocytosis Sodium 136 L (137-145) mmol/L Potassium (3.5-5.1) mmol/L Chloride 113 H (98-107) mmol/L Carbon Dioxide 16 L (22-30) mmol/L Creatinine 1.30 H (0.52-1.04) mg/dL Glucose 215 H (74-99) mg/dL POC Glucose (mg/dL) (75-99) mg/dL Calcium (8.4-10.2) mg/dL Total Bilirubin 1.5 H (0.2-1.3) mg/dL AST 59 H (14-36) U/L Alkaline Phosphatase 313 H (38-126) U/L Ammonia 93 H (<30) umol/L Total Protein 5.9 L (6.3-8.2) g/dL Albumin 2.6 L (3.5-5.0) g/dL Microbiology - Last 24 Hours (Table) 04/30/19 19:25 Urine Culture - Final Urine,Catheterized Enterococcus faecium VRE Assessment and Plan Assessment: 1-patient with positive urine culture with enterococcus patient that is vancomycin resistant:: White count of 50- 100,000 this patient currently denies significant urine symptom and her UA has been negative more likely representing a colonization/contamination 2-patient admitted hospital with mental status changes possible hepatic encephalopathy the managed by admitting in GI team Plan: 1-repeat a UA and cultures to repeat UA is negative daptomycin can be safely discontinued we will follow up on clinical condition and cultures to further adjust medication if needed Thank you for this consultation will follow this patient along with you Time with Patient: Greater than 30
[2019-05-05 07:15] LABS: Glucose,Whole Blood 116 mg/dL (75-99)
[2019-05-05] MEDS: INSULIN ASPART (NovoLOG) 100 UNIT/ML VIAL SQ SCH ×2 (07:29→12:49)
[2019-05-05] MEDS: SODIUM BICARBONATE TAB 650 MG TAB PO SCH (07:32)
[2019-05-05] MEDS: PANTOPRAZOLE 40 MG TABLET PO SCH (07:33)
[2019-05-05] MEDS: buPROPion SR 150 MG TABLET.ER PO SCH (07:33)
[2019-05-05] MEDS: FERROUS SULFATE 325 MG TAB PO SCH (07:33)
[2019-05-05] MEDS: DICYCLOMINE 20 MG TAB PO SCH (07:34)
[2019-05-05] MEDS: POTASSIUM CHLORIDE ER 20 MEQ TAB.ER PO SCH ×3 (07:34→10:46)
[2019-05-05] MEDS: SUCRALFATE 1 GM TAB PO SCH ×2 (07:34→12:48)
[2019-05-05] MEDS: MAGNESIUM OXIDE 400 MG TAB PO SCH (07:34)
[2019-05-05] MEDS: METOPROLOL TARTRATE 12.5 MG TAB PO SCH (07:35)
[2019-05-05] MEDS: RIFAXIMIN 550 MG TABLET PO SCH (07:35)
[2019-05-05] MEDS: CHOLECALCIFEROL 1,000 UNIT TAB PO SCH (07:35)
[2019-05-05] MEDS: ZINC OXIDE 20% OINT 28.4 GM TUBE TOPICAL SCH (07:35)
[2019-05-05] MEDS: INSULIN NPH 300 UNIT/3 ML VIAL SQ SCH (07:36)
[2019-05-05] MEDS: INSULIN REGULAR 100 UNIT/ML VIAL SQ SCH ×2 (07:37→12:48)
[2019-05-05] MEDS: LACTULOSE 20 GM/30 ML CUP PO SCH ×2 (07:38→12:54)
[2019-05-05] MEDS: MORPHINE SULFATE ER 15 MG TABLET PO PRN (07:52)
[2019-05-05 09:00] LABS: Basophils % (A) 1 %; Eosinophils # (A) 0.3 k/uL (0-0.7); Eosinophils % (A) 6 %; HCT 39.5 % (34.0-46.0); HGB 12.7 gm/dL (11.4-16.0); Lymphocytes # (A) 1.3 k/uL (1.0-4.8); Lymphocytes % (A) 26 %; MCH 34.8 pg (25.0-35.0); MCHC 32.1 g/dL (31.0-37.0); MCV 108.2 fL (80.0-100.0); Macrocytosis Marked; Mean Platelet Volume 9.5; Monocytes # (A) 0.3 k/uL (0-1.0); Monocytes % (A) 6 %; Neutrophils % (A) 59 %; RBC 3.65 m/uL (3.80-5.40); RDW 15.9 % (11.5-15.5); WBC 5.1 k/uL (3.8-10.6)
[2019-05-05 09:07] LABS: Albumin 2.7 g/dL (3.5-5.0); Magnesium 1.6 mg/dL (1.6-2.3); Total Bilirubin 1.8 mg/dL (0.2-1.3); Total Protein 6.1 g/dL (6.3-8.2)
[2019-05-05 09:19] LABS: Platelet Count 73 k/uL (150-450)
[2019-05-05] MEDS ORDERED: Potassium Replacement Protocol 1 EACH MISC MISCELLANE PRN (09:48)
[2019-05-05] MEDS: traMADol 50 MG TAB PO PRN (09:53)
[2019-05-05 12:07] LABS: Glucose,Whole Blood 278 mg/dL (75-99)
[2019-05-05] MEDS: MAGNESIUM SULFATE-D5W PMX 1 GM in DEXTROSE/WATER 1 100ML.BAG IVPB SCH ×2 (12:41→12:42)
--- NOTE | 2019-05-05 12:49 | P.DS ---
Providers Date of admission: 04/30/19 20:00 Expected date of discharge: 05/05/19 Attending physician: Artemio Lea Consults: 05/03/19 13:58 Consult Physician Routine Consulting Provider: Jaylene Esparza Consult Reason/Comments: VRE urine Do you want consulting provider notified?: Yes Primary care physician: Gilma Martinez Hospital Course: Discharge diagnosis 1. Altered mental status changes likely due to acute hepatic encephalopathy . Computed tomography scan of the brain showing no acute changes. No evidence of infection continuing to her symptoms UTI ruled out. Chest x-rays negative. Alcohol level less than 10. 2. Acute hepatic encephalopathy with elevated ammonia level secondary to non- alcoholic liver cirrhosis and hepatocellular carcinoma: Ammonia level 44 on admission. Continue lactulose. Patient cannot afford the Xifaxan. We'll follow up with GI service outpatient to possibly get a prior authorization for the Xifaxan 3. UTI ruled out: Repeat urinalysis was negative. 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 Patient seen and evaluated by infectious disease and no further antibiotics required. 4. Acute kidney injury: Likely related to dehydration from the vomiting and diarrhea. Kidney functions returned to baseline 5. Chronic kidney disease stage III 6. History of hepatocellular carcinoma 7. History of liver cirrhosis 8. Vomiting and diarrhea at home possibly related to a gastroenteritis. Vomiting has resolved. c. diff is negative 9. Vaginal candidiasis: Treated with Diflucan 10. Chronic thrombocytopenia likely related to her liver disease 11. Mild protein calorie malnutrition: Albumin 3.2. Add Glucerna shakes 12. Hypokalemia: Patient received potassium supplement. Continue to monitor. 13. Abdominal ascites due to patient's liver cirrhosis. Status post paracentesis on 05/02/2019 1.4 later removed 14. History of diabetes mellitus type 2 15. Stage I pressure ulcer on the coccyx area present on admission. Add zinc oxide twice a day. Keep pressure off of the area. 16. Hypokalemia and hypomagnesemia. Potassium was replaced per supplement. Magnesium at discharge is 1.6. We'll increase her magnesium oxide to 500 mg twice a day for 3 days and then continue magnesium oxide once daily. Patient should have magnesium level and potassium level checked in 3 days. Also note the patient refused IV magnesium she's eager for discharge home. Therefore she'll be supplemented with oral magnesium. Hospital course This is a 73-year-old female, patient of Dr. Kurtz. She has a known past medical history of hepatocellular carcinoma, liver cirrhosis, chronic kidney disease stage III and diabetes mellitus. Patient presents to the emergency room with altered mental status changes. Per patient she had been doing well she left [facility] [place] [facility] the about a week ago she was there for rehabilitation. She reports taking all of her medications including the lactulose. The Xifaxan she does not take at home because it is too expensive. She was brought in to the emergency room due to worsening mental status changes yesterday per the [id number]. Patient reports she felt that she was in a fog. She was having difficulty even getting dressed in the morning And is also having difficulty with her speech. She denies any weakness on one side of the body. She denies any fever, chills, sweats, chest pain or shortness of breath. Denies any burning with urination. She was having some nausea and vomiting. Patient states she is having a lot of liquidy stool through her ileostomy. Patient does report having a lot of loose stools. Due to her recent hospitalizations we'll be ordering a stool for C. diff. Alcohol level was less than 10 urinalysis was negative computed tomography scan range in no acute changes chest x-rays negative. EKG normal sinus rhythm. Ammonia elevated at 44 she was given an extra dose of lactulose in the ER. Creatinine 1.38. She was discharged on April 17 for [facility] and at that time was felt for mental status changes and elevated troponins and acute coronary syndrome was ruled out. 05/02/19 patient still complaining of not feeling well some abdominal discomfort and decrease in appetite. She had abdominal ultrasound showing moderate ascites. She has been seen by GI service. She is scheduled for paracentesis later today. Stool for C. diff was negative. She does have a stage I coccyx ulcer developing. Zinc oxide has been ordered. Patient educated to stay off the area. She denies any chest pain or shortness of breath. Denies any vomiting. Denies any burning with urination. Labs are pending this morning. On 05/03/2019 patient is feeling improved today. Patient did undergo paracentesis in which she received 1.4 L off. Urine culture has a for VRE. Antibiotics has been switched to daptomycin. At this time patient denies nausea vomiting or diarrhea. Patient denies chest pain or shortness breath. Patient denies any urinary burning or frequency. 05/04/2019 patient lying comfortably. She is currently on daptomycin for VRE in her urine. Infectious disease on consult awaiting their recommendations. Patient complaining of some urinary retention-like symptoms. She feels that she's 19 the bladder fully and having some hesitancy when she urinates. Denies any burning with urination. Bladder scan has been ordered to check postvoid residual. Ammonia level is normal at 25. Creatinine has come down from 1.35- 1.30. She had 1.4 L removed during her paracentesis. Patient does report changing her ileostomy bag seventh through the night. Nursing staff reporting that she's only changing it twice during the day. 05/05/2019 patient is medically stable for discharge. Her repeat urinalysis was negative. Therefore UTI was ruled out and per infectious disease felt that there was most likely a colonization of the VRE and no further antibiotics are required. Patient had paracentesis during this admission. Also seen by GI service. Unfortunately patient cannot afford the Xifaxan. At this time she'll continue the lactulose at home. Patient has been educated that she needs to follow up with GI service and at that point they can discuss about getting possibly a prior authorization for the Xifaxan. Patient's mentation has been at baseline. She is medically stable for discharge. Please refer to chart for any further details. Patient will have BMP, magnesium checked in 3 days. Recommend that she follows up with Dr. uKrtz and [address] Francois in 1 week I performed an examination of the patient and discussed their management with the physician Wash Oil Pump Operator. I have reviewed the Physician Wash [employer] Pump Operator's notes and agree with the documented findings and plan of care Patient Condition at Discharge: Stable Plan - Discharge Summary New Discharge Prescriptions: New Zinc Oxide 20% Oint 1 applic TOPICAL BID #1 tube Continue Sucralfate [Carafate] 1 gm PO QID Omeprazole [PriLOSEC] 20 mg PO BID Insulin Regular, Human [NovoLIN R] 10 unit SQ AC-TID buPROPion SR [Wellbutrin SR] 150 mg PO DAILY #30 tablet.er Cholecalciferol [Vitamin D3 (25 Mcg = 1000 Iu)] 4,000 unit PO DAILY Ferrous Sulfate [Iron (65 MG Elemental)] 325 mg PO BID Insulin NPH [humuLIN N] 18 unit SQ BID vial Dicyclomine [Bentyl] 20 mg PO TID 30 Days #180 cap Lactulose [Cephulac] 45 gm PO TID Sodium Bicarbonate Tab 1,300 mg PO BID tab Rifaximin [Xifaxan] 550 mg PO BID tablet Torsemide [Demadex] 20 mg PO Q48H 30 Days #30 tab Morphine Sulfate ER [Ms Contin] 15 mg PO Q12HR 3 Days #6 tablet Potassium Chloride [Klor-Con 20] 20 meq PO DAILY Metoprolol Tartrate [Lopressor] 12.5 mg PO BID Changed Magnesium Oxide [William] 500 mg PO BID #6 tablet Discontinued Nitrofurantoin Monohyd/M-Cryst [Macrobid] 100 mg PO BID Discharge Medication List Omeprazole [PriLOSEC] 20 mg PO BID 10/23/18 [History] Sucralfate [Carafate] 1 gm PO QID 10/23/18 [History] Insulin Regular, Human [NovoLIN R] 10 unit SQ AC-TID 10/24/18 [History] buPROPion SR [Wellbutrin SR] 150 mg PO DAILY #30 tablet.er 12/21/18 [Rx] Cholecalciferol [Vitamin D3 (25 Mcg = 1000 Iu)] 4,000 unit PO DAILY 01/16/19 [H istory] Ferrous Sulfate [Iron (65 MG Elemental)] 325 mg PO BID 01/31/19 [History] Insulin NPH [humuLIN N] 18 unit SQ BID vial 02/06/19 [Rx] Dicyclomine [Bentyl] 20 mg PO TID 30 Days #180 cap 03/31/19 [Rx] Lactulose [Cephulac] 45 gm PO TID 04/07/19 [History] Morphine Sulfate ER [Ms Contin] 15 mg PO Q12HR 3 Days #6 tablet 04/17/19 [Rx] Rifaximin [Xifaxan] 550 mg PO BID tablet 04/17/19 [Rx] Sodium Bicarbonate Tab 1,300 mg PO BID tab 04/17/19 [Rx] Torsemide [Demadex] 20 mg PO Q48H 30 Days #30 tab 04/17/19 [Rx] Potassium Chloride [Klor-Con 20] 20 meq PO DAILY 04/21/19 [History] Metoprolol Tartrate [Lopressor] 12.5 mg PO BID 04/30/19 [History] Magnesium Oxide [William] 500 mg PO BID #6 tablet 05/05/19 [Rx] Zinc Oxide 20% Oint 1 applic TOPICAL BID #1 tube 05/05/19 [Rx] Follow up Appointment(s)/Referral(s): Gilma Martinez MD [Primary Care Provider] - 3 Days Ananth Francois MD [STAFF PHYSICIAN] - 1 Week Ambulatory/Diagnostic Orders: Basic Metabolic Panel [LAB.AMB] Time Frame: 3 Days, Location: None Selected Patient Instructions/Handouts: Urinary Tract Infection in Women (DC) Activity/Diet/Wound Care/Special Instructions: Diet: diabetic, cardiac Activity: as tolerated Discharge Disposition: HOME SELF-CARE
--- NOTE | 2019-05-05 14:29 | PN ---
PROGRESS NOTE DATE OF SERVICE: 05/05/2019 REASON FOR FOLLOWUP: Positive culture with VRE. INTERVAL HISTORY: The patient is currently afebrile. Patient has been breathing comfortably. Patient denies having any chest pain or any cough. No abdominal pain. No nausea, vomiting and no urinary symptoms. PHYSICAL EXAMINATION: Upon examination, blood pressure is 92/52 with a pulse of 61, temperature 97.8. She is 100% on room air. General description is an elderly female up in the chair in no distress. RESPIRATORY SYSTEM: Unlabored breathing, clear to auscultation anteriorly. HEART: S1, S2. Regular rate and rhythm. ABDOMEN: Soft, no tenderness. LABS: Hemoglobin is 12.7, white count 5.1, BUN of 17, creatinine 1.27. Repeat UA is negative. DIAGNOSTIC IMPRESSION AND PLAN: Patient with a positive urine culture, more likely colonization/contamination as the patient UA has been negative. No symptoms of fever or white count. I recommend no antibiotics. Continue supportive care. MMODL / IJN: [id number] /
== END 2019-05-05 13:25 | disposition home or self-care (01) | DRG 436 ==
LOC: EC 16:11 → 4MS4W 20:00
PROVIDERS: ADMIT Internal Medicine; ATTEND Internal Medicine
DX: C22.0 Liver cell carcinoma (principal); D61.818 Other pancytopenia; N17.9 Acute kidney failure, unspecified; E44.1 Mild protein-calorie malnutrition; R18.8 Other ascites; K76.6 Portal hypertension; K74.60 Unspecified cirrhosis of liver; K72.90 Hepatic failure, unspecified without coma; F41.9 Anxiety disorder, unspecified; G89.29 Other chronic pain; N18.3 Chronic kidney disease, stage 3 (moderate); I12.9 Hypertensive chronic kidney disease with stage 1 through stage 4 chronic kidney disease, or unspecified chronic kidney disease; K52.9 Noninfective gastroenteritis and colitis, unspecified; E87.6 Hypokalemia; B37.3 Candidiasis of vulva and vagina; E83.42 Hypomagnesemia; E86.0 Dehydration; L89.151 Pressure ulcer of sacral region, stage 1; E11.22 Type 2 diabetes mellitus with diabetic chronic kidney disease; F32.9 Major depressive disorder, single episode, unspecified; K21.9 Gastro-esophageal reflux disease without esophagitis; Z53.20 Procedure and treatment not carried out because of patient's decision for unspecified reasons; Z87.891 Personal history of nicotine dependence; Z90.710 Acquired absence of both cervix and uterus; Z90.49 Acquired absence of other specified parts of digestive tract; I25.2 Old myocardial infarction; Z87.440 Personal history of urinary (tract) infections; Z86.14 Personal history of Methicillin resistant Staphylococcus aureus infection; Z93.2 Ileostomy status; Z82.49 Family history of ischemic heart disease and other diseases of the circulatory system; Z88.5 Allergy status to narcotic agent; Z88.0 Allergy status to penicillin; Z88.8 Allergy status to other drugs, medicaments and biological substances; Z79.4 Long term (current) use of insulin; Z79.891 Long term (current) use of opiate analgesic; Z79.899 Other long term (current) drug therapy; Z87.11 Personal history of peptic ulcer disease
CPT/HCPCS: 36415; 49083; 70450; 71046; 76705; 80053; 80320; 81003; 82140; 83036; 83690; 83735; 85025; 85610; 87077; 87086; 87186; 87324; 93005; 99285

== ENCOUNTER 2019-05-07 10:51 | Emergency (ER) | payer MEDICARE ==
[2019-05-07 11:15] VITALS: TEMP 99.2
[2019-05-07] MEDS ORDERED: MORPHINE SULFATE 4 MG/ML SYRINGE IV STA (11:43)
[2019-05-07] MEDS ORDERED: SODIUM CHLORIDE 0.9% 1,000 ML IV STA (11:43)
[2019-05-07] MEDS ORDERED: ONDANSETRON 4 MG/2 ML VIAL IVP STA (11:43)
[2019-05-07 12:09] LABS: Albumin 2.7 g/dL (3.5-5.0); Calcium 8.4 mg/dL (8.4-10.2); Potassium 4.8 mmol/L (3.5-5.1); Total Bilirubin 1.7 mg/dL (0.2-1.3)
[2019-05-07 12:13] LABS: INR 1.4 (<1.2); Partial Thromboplastin Time 23.8 sec (22.0-30.0); Prothrombin Time 13.8 sec (9.0-12.0)
[2019-05-07 12:15] LABS: Lactic Acid, Venous 2.4 mmol/L (0.7-2.0)
[2019-05-07 12:16] LABS: Basophils % (A) 0 %; Eosinophils # (A) 0.2 k/uL (0-0.7); Eosinophils % (A) 3 %; HCT 36.3 % (34.0-46.0); HGB 11.5 gm/dL (11.4-16.0); Lymphocytes % (A) 16 %; MCH 34.3 pg (25.0-35.0); MCHC 31.6 g/dL (31.0-37.0); MCV 108.5 fL (80.0-100.0); Macrocytosis Marked; Mean Platelet Volume 9.4; Monocytes # (A) 0.4 k/uL (0-1.0); Monocytes % (A) 7 %; Neutrophils # (A) 4.6 k/uL (1.3-7.7); Neutrophils % (A) 72 %; RBC 3.34 m/uL (3.80-5.40); RDW 14.9 % (11.5-15.5); WBC 6.3 k/uL (3.8-10.6)
--- NOTE | 2019-05-07 12:22 | XR ---
EXAMINATION TYPE: XR KUB , 2 VIEWS DATE OF EXAM ORDERED: 05/07/2019 HISTORY: abdominal pain. COMPARISON: Previous study dated 01/25/2019. FINDINGS: A metallic cross projects over the lower chest. There are surgical clips in the right uppe r quadrant. The lung bases are clear. The abdominal gas pattern is within normal limits. There are scattered air-fluid levels. There is no evidence of obstruction or free air. No unusual calcifications are seen. IMPRESSION: CHANGES MOST CONSISTENT WITH MILD ILEUS.
[2019-05-07 12:29] LABS: Appearance,Urine Clear (Clear); Bacteria,Urine Few /hpf; Bilirubin,Urine Negative (Negative); Blood,Urine Negative (Negative); Color,Urine Yellow; Glucose,Urine (UA) Negative (Negative); Hyaline Casts,Urine 22 /lpf (0-2); Ketones,Urine Negative (Negative); Leukocyte Esterase,Urine Small (Negative); Mucus,Urine Rare /hpf; Nitrite,Urine Negative (Negative); Protein,Urine Trace (Negative); RBC,Urine <1 /hpf (0-5); Specific Gravity,Urine 1.019 (1.001-1.035); Squamous Epithelial Cell,Urine 1 /hpf (0-4); Urobilinogen,Urine <2.0 mg/dL (<2.0)
[2019-05-07 12:32] LABS: Platelet Count 69 k/uL (150-450)
--- NOTE | 2019-05-07 13:13 | ED ---
Recheck HPI - General Chief Complaint: Recheck/Abnormal Lab/Rx Stated Complaint: Ileostomy pain Time Seen by Provider: 05/07/19 11:30 Source: patient, RN notes reviewed Mode of arrival: wheelchair Limitations: no limitations - History of Present Illness Initial Comments: This a 73-year-old female presents emergency department to complaint of abdominal pain, not feeling well. Patient states she has right-sided flank pain. Patient states that she has high output ileostomy this time. She states that she had increase her lactulose secondary to elevated ammonia level. Patient states that diarrhea is unbearable. Patient states she is concerned about being dehydrated. Patient states that she does have chronic pain issues in which she takes morphine for. Patient does admit to nausea with no emesis and this time no chest pain or shortness breath patient has slight dysuria no noted hematuria. - Related Data Home Medications Medication Instructions Recorded Confirmed Omeprazole [PriLOSEC] 20 mg PO BID 10/23/18 04/30/19 Sucralfate [Carafate] 1 gm PO QID 10/23/18 04/30/19 Insulin Regular, Human [NovoLIN R] 10 unit SQ AC-TID 10/24/18 04/30/19 Cholecalciferol [Vitamin D3 (25 4,000 unit PO DAILY 01/16/19 04/30/19 Mcg = 1000 Iu)] Ferrous Sulfate [Iron (65 MG 325 mg PO BID 01/31/19 04/30/19 Elemental)] Lactulose [Cephulac] 45 gm PO TID 04/07/19 04/30/19 Potassium Chloride [Klor-Con 20] 20 meq PO DAILY 04/21/19 04/30/19 Metoprolol Tartrate [Lopressor] 12.5 mg PO BID 04/30/19 04/30/19 Previous Rx's Medication Instructions Recorded buPROPion SR [Wellbutrin SR] 150 mg PO DAILY #30 tablet.er 12/21/18 Insulin NPH [humuLIN N] 18 unit SQ BID vial 02/06/19 Dicyclomine [Bentyl] 20 mg PO TID 30 Days #180 cap 03/31/19 Morphine Sulfate ER [Ms Contin] 15 mg PO Q12HR 3 Days #6 tablet 04/17/19 Rifaximin [Xifaxan] 550 mg PO BID tablet 06/03/19 Sodium Bicarbonate Tab 1,300 mg PO BID tab 04/17/19 Torsemide [Demadex] 20 mg PO Q48H 30 Days #30 tab 04/17/19 Magnesium Oxide [William] 500 mg PO BID #6 tablet 05/05/19 Zinc Oxide 20% Oint 1 applic TOPICAL BID #1 tube 05/05/19 Allergies Allergy/AdvReac Type Severity Reaction Status Date / Time amlodipine Allergy Rash/Hives Verified 05/07/19 11:15 oxycodone Allergy Rash/Hives Verified 05/07/19 11:15 Penicillins Allergy Rash/Hives Verified 05/07/19 11:15 hydromorphone [From Dilaudid] AdvReac Mild tactile Verified 05/07/19 11:15 disturbance GREG Inhibitors AdvReac Cough Verified 05/07/19 11:15 sodium dodecyclbenzene Allergy Rash/Hives Uncoded 05/07/19 11:15 sulfonate Review of Systems ROS Statement: Those systems with pertinent positive or pertinent negative responses have been documented in the HPI. ROS Other: All systems not noted in ROS Statement are negative. Past Medical History Past Medical History: Cancer, Diabetes Mellitus, GERD/Reflux, Hypertension, Liver Disease, Myocardial Infarction (MA), Renal Disease Additional Past Medical History / Comment(s): Hepatocellular liver cancer with chemo immobilization-last time being 2017, ascities with paracentesis's , nonalcoholic liver cirrhosis, chronic pancytopenia, chronic elevated ammonia levels, hepatic encephalopathy, chronic elevated LFTs, chronic abdominal pain, stomach ulcer, diverticular disease with ileostomy, IDDM type II, iron anemia, CKD stage III, nonsustained vtach, UTI, high ammonia levels Last Myocardial Infarction Date:: unk History of Any Multi-Drug Resistant Organisms: MRSA Date of last positivie culture/infection: 12/30/18 MDRO Source:: Urine Past Surgical History: Appendectomy, Bowel Resection, Section, Cholecystectomy, Hysterectomy, Tonsillectomy Additional Past Surgical History / Comment(s): Chemo immobilizations, liver biopsies, paracentesis, bowel resection d/t diverticulitis/ileostomy, R rotator cuff repair, carpal tunnel release-laterality unknown. Past Anesthesia/Blood Transfusion Reactions: No Reported Reaction Past Psychological History: Anxiety, Depression Smoking Status: Never smoker Past Alcohol Use History: None Reported Past Drug Use History: None Reported - Past Family History Mother History Unknown: Yes Family Medical History: Congestive Heart Failure (CHF) Additional Family Medical History / Comment(s): Mother is 94 yrs old. Father Family Medical History: Chest Pain / Angina Additional Family Medical History / Comment(s): Father is . General Exam Limitations: no limitations General appearance: alert, in no apparent distress Head exam: Present: atraumatic, normocephalic, normal inspection Eye exam: Present: normal appearance, PERRL, EOMI. Absent: scleral icterus, conjunctival injection, periorbital swelling Neck exam: Present: normal inspection. Absent: tenderness, meningismus, lymphadenopathy Respiratory exam: Present: normal lung sounds bilaterally. Absent: respiratory distress, wheezes, rales, rhonchi, stridor Cardiovascular Exam: Present: regular rate, normal rhythm, normal heart sounds. Absent: systolic murmur, diastolic murmur, rubs, gallop, clicks GI/Abdominal exam: Present: soft, tenderness (Moderate right-sided), normal bowel sounds, other (Stoma with colostomy in place, stool in the bag which is yellowish to green, loose watery). Absent: distended, guarding, rebound, rigid Back exam: Present: CVA tenderness (R). Absent: CVA tenderness (L) Neurological exam: Present: alert, oriented X3, CN II-XII intact Skin exam: Present: warm, dry, intact, normal color. Absent: rash Course Vital Signs 05/07/19 11:10 Temperature 99.2 F Pulse Rate 68 Respiratory 18 Rate Blood Pressure 108/60 O2 Sat by Pulse 100 Oximetry Medical Decision Making - Medical Decision Making 73-year-old female presented emergency from for pain around her stoma. Patient had labs, CT, urinalysis. There are no acute changes are labs she was hydrated and given pain meds and which symptoms have improved. CT shows evidence of pelvic masses which have been known to her. Patient advised to follow-up GI and PCP. Patient we discharge patient agrees to plan at this time. - Lab Data Result diagrams: 05/07/19 11:52 05/07/19 11:52 Lab Results 05/07/19 05/07/19 05/07/19 Range/Units 11:52 11:52 11:52 WBC 6.3 (3.8-10.6) k/uL RBC 3.34 L (3.80-5.40) m/uL Hgb 11.5 (11.4-16.0) gm/dL Hct 36.3 (34.0-46.0) % MCV 108.5 H (80.0-100.0) fL MCH 34.3 (25.0-35.0) pg MCHC 31.6 (31.0-37.0) g/dL RDW 14.9 (11.5-15.5) % Plt Count 69 L (150-450) k/uL Neutrophils % 72 % Lymphocytes % 16 % Monocytes % 7 % Eosinophils % 3 % Basophils % 0 % Neutrophils # 4.6 (1.3-7.7) k/uL Lymphocytes # 1.0 (1.0-4.8) k/uL Monocytes # 0.4 (0-1.0) k/uL Eosinophils # 0.2 (0-0.7) k/uL Basophils # 0.0 (0-0.2) k/uL Manual Slide Review Performed Macrocytosis Marked A PT (9.0-12.0) sec INR (<1.2) APTT (22.0-30.0) sec Sodium 136 L (137-145) mmol/L Potassium 4.8 (3.5-5.1) mmol/L Chloride 109 H (98-107) mmol/L Carbon Dioxide 18 L (22-30) mmol/L Anion Gap 9 mmol/L BUN 17 (7-17) mg/dL Creatinine 1.24 H (0.52-1.04) mg/dL Est GFR (CKD-EPI)AfAm 51 (>60 ml/min/1.73 sqM) Est GFR (CKD-EPI)NonAf 44 (>60 ml/min/1.73 sqM) Glucose 275 H (74-99) mg/dL Plasma Lactic Acid Carlos 2.4 H* (0.7-2.0) mmol/L Calcium 8.4 (8.4-10.2) mg/dL Total Bilirubin 1.7 H (0.2-1.3) mg/dL AST 79 H (14-36) U/L ALT 31 (9-52) U/L Alkaline Phosphatase 346 H (38-126) U/L Ammonia 25 (<30) umol/L Total Protein 6.0 L (6.3-8.2) g/dL Albumin 2.7 L (3.5-5.0) g/dL Amylase 58 (30-110) U/L Lipase 34 (23-300) U/L Urine Color Urine Appearance (Clear) Urine pH (5.0-8.0) Ur Specific [place] (1.001-1.035) Urine Protein (Negative) Urine Glucose (UA) (Negative) Urine Ketones (Negative) Urine Blood (Negative) Urine Nitrite (Negative) Urine Bilirubin (Negative) Urine Urobilinogen (<2.0) mg/dL Ur Leukocyte Esterase (Negative) Urine RBC (0-5) /hpf Urine WBC (0-5) /hpf Ur Squamous Epith Cells (0-4) /hpf Urine Bacteria (None) /hpf Hyaline Casts (0-2) /lpf Urine Mucus (None) /hpf 05/07/19 05/07/19 Range/Units 11:52 12:00 WBC (3.8-10.6) k/uL RBC (3.80-5.40) m/uL Hgb (11.4-16.0) gm/dL Hct (34.0-46.0) % MCV (80.0-100.0) fL MCH (25.0-35.0) pg MCHC (31.0-37.0) g/dL RDW (11.5-15.5) % Plt Count (150-450) k/uL Neutrophils % % Lymphocytes % % Monocytes % % Eosinophils % % Basophils % % Neutrophils # (1.3-7.7) k/uL Lymphocytes # (1.0-4.8) k/uL Monocytes # (0-1.0) k/uL Eosinophils # (0-0.7) k/uL Basophils # (0-0.2) k/uL Manual Slide Review Macrocytosis PT 13.8 H (9.0-12.0) sec INR 1.4 H (<1.2) APTT 23.8 (22.0-30.0) sec Sodium (137-145) mmol/L Potassium (3.5-5.1) mmol/L Chloride (98-107) mmol/L Carbon Dioxide (22-30) mmol/L Anion Gap mmol/L BUN (7-17) mg/dL Creatinine (0.52-1.04) mg/dL Est GFR (CKD-EPI)AfAm (>60 ml/min/1.73 sqM) Est GFR (CKD-EPI)NonAf (>60 ml/min/1.73 sqM) Glucose (74-99) mg/dL Plasma Lactic Acid Carlos (0.7-2.0) mmol/L Calcium (8.4-10.2) mg/dL Total Bilirubin (0.2-1.3) mg/dL AST (14-36) U/L ALT (9-52) U/L Alkaline Phosphatase (38-126) U/L Ammonia (<30) umol/L Total Protein (6.3-8.2) g/dL Albumin (3.5-5.0) g/dL Amylase (30-110) U/L Lipase (23-300) U/L Urine Color Yellow Urine Appearance Clear (Clear) Urine pH 6.0 (5.0-8.0) Ur Specific [place] 1.019 (1.001-1.035) Urine Protein Trace H (Negative) Urine Glucose (UA) Negative (Negative) Urine Ketones Negative (Negative) Urine Blood Negative (Negative) Urine Nitrite Negative (Negative) Urine Bilirubin Negative (Negative) Urine Urobilinogen <2.0 (<2.0) mg/dL Ur Leukocyte Esterase Small H (Negative) Urine RBC <1 (0-5) /hpf Urine WBC 12 H (0-5) /hpf Ur Squamous Epith Cells 1 (0-4) /hpf Urine Bacteria Few H (None) /hpf Hyaline Casts 22 H (0-2) /lpf Urine Mucus Rare H (None) /hpf Disposition Clinical Impression: Abdominal pain, Cirrhosis of liver with ascites, Diarrhea Disposition: HOME SELF-CARE Condition: Stable Instructions (If sedation given, give patient instructions): Abdominal Pain (ED) Additional Instructions: Please return to the Emergency Department if symptoms worsen or any other concerns. Is patient prescribed a controlled substance at d/c from ED?: No Referrals: Gilma Martinez MD [Primary Care Provider] - 1-2 days Time of Disposition: 13:46
--- NOTE | 2019-05-07 13:15 | CT ---
EXAMINATION TYPE: CT abdomen pelvis wo con DATE OF EXAM: 05/07/2019 COMPARISON: Previous study dated 04/13/2019 HISTORY: Ileostomy pain, known liver CA CT DLP: 783.7 mGycm Automated exposure control for dose reduction was used. FINDINGS: Visualized portions of the lungs are clear. There is no pleural or pericardial fluid. The h eart is not enlarged. Within the abdomen, there is ascites. The liver is small and nodular containing multiple masses. It i s difficult to accurately compare these with the absence of contrast. One lesion anteriorly measured previously at 3.96 x 2.20 cm today measures 4.18 x 1.95 cm. The gallbladder is been removed. The sple en is unremarkable. There are splenic varices. There are gastrohepatic varices. The pancreas is not w ell-visualized. Both adrenal glands appear unremarkable. There is no evidence of nephrolithiasis or hydronephrosis. There are mesenteric varices throughout the study. The bladder is unremarkable. The uterus and ovaries are not clearly visualized. Clear visualization of the large bowel is difficult due to all of the ascites, varices and small trish l but there is no evidence of obstruction. The appendix is not visualized. There is a right lower quadrant stoma containing loops of bowel which are not dilated. No free air is seen. There is degenerative disc disease, facet arthropathy and hypertrophic spondylosis within the spine. There is a retrograde listhesis of L1 on L2 and L2 on L3. IMPRESSION: 1. EVIDENCE OF CIRRHOSIS OF THE LIVER AND PORTAL HYPERTENSION WITH VARICES THROUGHOUT THE STUDY. 2. ASCITES. 3. WAXING AND WANING OF THE PATIENT'S KNOWN METALLIC MASSES. THESE MAY REPRESENT METASTASES OR MULTIF OCAL HEPATOCELLULAR CARCINOMA. 4. RIGHT LOWER QUADRANT STOMA CONTAINING NONDILATED BOWEL WITHOUT EVIDENCE OF SIGNIFICANT INDURATION. 5. DEGENERATIVE CHANGE WITHIN THE SPINE.
[2019-05-07 14:42] VITALS: BP 106/73; PULSE 72; RESP 16
== END 2019-05-07 14:30 | disposition home or self-care (01) ==
LOC: EC 10:51
DX: K74.60 Unspecified cirrhosis of liver (principal); R18.8 Other ascites; R10.9 Unspecified abdominal pain; R19.7 Diarrhea, unspecified; K76.6 Portal hypertension; E11.9 Type 2 diabetes mellitus without complications; K21.9 Gastro-esophageal reflux disease without esophagitis; I25.2 Old myocardial infarction; I12.9 Hypertensive chronic kidney disease with stage 1 through stage 4 chronic kidney disease, or unspecified chronic kidney disease; N18.3 Chronic kidney disease, stage 3 (moderate); Z79.4 Long term (current) use of insulin; Z79.899 Other long term (current) drug therapy; Z88.0 Allergy status to penicillin; Z88.5 Allergy status to narcotic agent; Z88.8 Allergy status to other drugs, medicaments and biological substances; Z90.49 Acquired absence of other specified parts of digestive tract; Z90.89 Acquired absence of other organs; Z90.710 Acquired absence of both cervix and uterus; Z85.05 Personal history of malignant neoplasm of liver; Z93.3 Colostomy status
CPT/HCPCS: 36415; 80053; 82140; 82150; 83605; 83690; 85025; 85610; 85730; 81001; 87086; 74018; 74176; 99284; 96374; 96375; 96361; J2270; J2405; 87077; 87186

== ENCOUNTER 2019-05-14 14:31 | Inpatient (IN) | payer MEDICARE ==
[2019-05-14] MEDS ORDERED: SODIUM CHLORIDE 0.9% 500 ML 500 ML IV ONE (15:06)
[2019-05-14 15:16] LABS: Glucose,Whole Blood 149 mg/dL (75-99)
--- NOTE | 2019-05-14 15:51 | ED ---
General Adult HPI - General Chief complaint: Altered Mental Status Stated complaint: Syncope Time Seen by Provider: 05/14/19 14:56 Source: patient, EMS, RN notes reviewed, old records reviewed Mode of arrival: EMS Limitations: altered mental status - History of Present Illness Initial comments: 73-year-old female with Past medical history including liver failure, hepatic encephalopathy presenting for altered mental status from the senior living. EMS reports stable vitals during transport. She is currently on lactulose, uncertain if she's been getting this medication. She is unable to contribute to the history. She is moving all extremities symmetrically. - Related Data Home Medications Medication Instructions Recorded Confirmed Omeprazole [PriLOSEC] 20 mg PO BID 10/23/18 05/14/19 Sucralfate [Carafate] 1 gm PO QID 10/23/18 05/14/19 Insulin Regular, Human [NovoLIN R] 10 unit SQ AC-TID 10/24/18 05/14/19 Cholecalciferol [Vitamin D3 (25 4,000 unit PO DAILY 01/16/19 05/14/19 Mcg = 1000 Iu)] Ferrous Sulfate [Iron (65 MG 325 mg PO BID 01/31/19 05/14/19 Elemental)] Lactulose [Cephulac] 45 gm PO TID 04/07/19 05/14/19 Potassium Chloride [Klor-Con 20] 20 meq PO DAILY 04/21/19 05/14/19 Metoprolol Tartrate [Lopressor] 12.5 mg PO BID 04/30/19 05/14/19 Previous Rx's Medication Instructions Recorded buPROPion SR [Wellbutrin SR] 150 mg PO DAILY #30 tablet.er 12/21/18 Insulin NPH [humuLIN N] 18 unit SQ BID vial 02/06/19 Dicyclomine [Bentyl] 20 mg PO TID 30 Days #180 cap 03/31/19 Rifaximin [Xifaxan] 550 mg PO BID tablet 04/17/19 Sodium Bicarbonate Tab 1,300 mg PO BID tab 04/17/19 Torsemide [Demadex] 20 mg PO Q48H 30 Days #30 tab 04/17/19 Magnesium Oxide [William] 500 mg PO BID #6 tablet 05/05/19 Zinc Oxide 20% Oint 1 applic TOPICAL BID #1 tube 05/05/19 Allergies Allergy/AdvReac Type Severity Reaction Status Date / Time amlodipine Allergy Rash/Hives Verified 05/14/19 16:03 oxycodone Allergy Rash/Hives Verified 05/14/19 16:03 Penicillins Allergy Rash/Hives Verified 05/14/19 16:03 hydromorphone [From Dilaudid] AdvReac Mild tactile Verified 05/14/19 16:03 disturbance GREG Inhibitors AdvReac Cough Verified 05/14/19 16:03 sodium dodecyclbenzene Allergy Rash/Hives Uncoded 05/14/19 16:03 sulfonate Review of Systems ROS Statement: Those systems with pertinent positive or pertinent negative responses have been documented in the HPI. ROS Other: All systems not noted in ROS Statement are negative. Past Medical History Past Medical History: Cancer, Diabetes Mellitus, GERD/Reflux, Hypertension, Liver Disease, Myocardial Infarction ([place]), Renal Disease Additional Past Medical History / Comment(s): Hepatocellular liver cancer with chemo immobilization-last time being 2017, ascities with paracentesis's , nonalcoholic liver cirrhosis, chronic pancytopenia, chronic elevated ammonia levels, hepatic encephalopathy, chronic elevated LFTs, chronic abdominal pain, stomach ulcer, diverticular disease with ileostomy, IDDM type II, iron anemia, CKD stage III, nonsustained vtach, UTI, high ammonia levels Last Myocardial Infarction Date:: unk History of Any Multi-Drug Resistant Organisms: MRSA Date of last positivie culture/infection: 12/30/18 MDRO Source:: Urine Past Surgical History: Appendectomy, Bowel Resection, Section, Cholecystectomy, Hysterectomy, Tonsillectomy Additional Past Surgical History / Comment(s): Chemo immobilizations, liver biopsies, paracentesis, bowel resection d/t diverticulitis/ileostomy, R rotator cuff repair, carpal tunnel release-laterality unknown. Past Anesthesia/Blood Transfusion Reactions: No Reported Reaction Past Psychological History: Anxiety, Depression Smoking Status: Never smoker Past Alcohol Use History: None Reported Past Drug Use History: None Reported - Past Family History Mother History Unknown: Yes Family Medical History: Congestive Heart Failure (CHF) Additional Family Medical History / Comment(s): Mother is 94 yrs old. Father Family Medical History: Chest Pain / Angina Additional Family Medical History / Comment(s): Father is . General Exam Limitations: altered mental status General appearance: lethargic Head exam: Present: atraumatic, normocephalic Eye exam: Present: normal appearance, PERRL, scleral icterus ENT exam: Present: mucous membranes dry Neck exam: Present: normal inspection. Absent: tenderness, meningismus Respiratory exam: Present: normal lung sounds bilaterally. Absent: respiratory distress, wheezes Cardiovascular Exam: Present: regular rate, normal rhythm GI/Abdominal exam: Present: soft. Absent: distended, tenderness, guarding, rebound Extremities exam: Present: normal inspection, normal capillary refill. Absent: pedal edema Neurological exam: Absent: alert, oriented X3, motor sensory deficit Skin exam: Present: warm, dry, intact. Absent: cyanosis, diaphoretic Course Vital Signs 05/14/19 05/14/19 05/14/19 14:44 14:45 15:00 Temperature 97.7 F Pulse Rate 72 67 Respiratory 18 18 Rate Blood Pressure 131/74 138/71 131/74 O2 Sat by Pulse 96 Oximetry 05/14/19 05/14/19 15:15 15:45 Temperature Pulse Rate 76 65 Respiratory 17 18 Rate Blood Pressure 127/65 133/74 O2 Sat by Pulse Oximetry EKG Findings - EKG Comments: EKG Findings:: EKG: Sinus rhythm, PVC left axis deviation, T-wave inversions in the precordial leads, rate 75, MT interval 162, QRS duration 96 prolonged QT at 482. Medical Decision Making - Medical Decision Making 73-year-old female presenting with confusion. Patient is lethargic, unable to contribute to history. She has history of hepatic encephalopathy. She has a nonfocal exam. CBC within normal limits. She is potassium 2.9 which is replaced with IV potassium. She has an ammonia of 86, most recent ammonia was 25. Creatinine 1.1. Chest x-ray negative for focal pneumonia, head CT negative for intracranial hemorrhage. Patient is started on lactulose, and IV fluids. She will be admitted for further evaluation and treatment. Case discussed with admitting physician Dr. Lea Urinalysis has not been obtained. - Lab Data Result diagrams: 05/14/19 15:20 05/14/19 15:20 Lab Results 05/14/19 05/14/19 05/14/19 Range/Units 15:15 15:20 15:20 WBC 5.1 (3.8-10.6) k/uL RBC 3.93 (3.80-5.40) m/uL Hgb 13.9 (11.4-16.0) gm/dL Hct 40.6 (34.0-46.0) % MCV 103.3 H D (80.0-100.0) fL MCH 35.4 H (25.0-35.0) pg MCHC 34.3 (31.0-37.0) g/dL RDW 16.2 H (11.5-15.5) % Plt Count 87 L (150-450) k/uL Neutrophils % 72 % Lymphocytes % 17 % Monocytes % 6 % Eosinophils % 3 % Basophils % 1 % Neutrophils # 3.7 (1.3-7.7) k/uL Lymphocytes # 0.9 L (1.0-4.8) k/uL Monocytes # 0.3 (0-1.0) k/uL Eosinophils # 0.2 (0-0.7) k/uL Basophils # 0.0 (0-0.2) k/uL Manual Slide Review Performed Toxic Granulation Present Poikilocytosis Slight Anisocytosis Slight Macrocytosis Moderate PT (9.0-12.0) sec INR (<1.2) APTT (22.0-30.0) sec Sodium (137-145) mmol/L Potassium (3.5-5.1) mmol/L Chloride (98-107) mmol/L Carbon Dioxide (22-30) mmol/L Anion Gap mmol/L BUN (7-17) mg/dL Creatinine (0.52-1.04) mg/dL Est GFR (CKD-EPI)AfAm (>60 ml/min/1.73 sqM) Est GFR (CKD-EPI)NonAf (>60 ml/min/1.73 sqM) Glucose (74-99) mg/dL POC Glucose (mg/dL) 149 H (75-99) mg/dL POC Glu Pain Coordinator ID Keena Lopez Calcium (8.4-10.2) mg/dL Total Bilirubin (0.2-1.3) mg/dL AST (14-36) U/L ALT (9-52) U/L Alkaline Phosphatase (38-126) U/L Ammonia 86 H (<30) umol/L Total Protein (6.3-8.2) g/dL Albumin (3.5-5.0) g/dL 06/30/19 06/30/19 Range/Units 15:20 15:20 WBC (3.8-10.6) k/uL RBC (3.80-5.40) m/uL Hgb (11.4-16.0) gm/dL Hct (34.0-46.0) % MCV (80.0-100.0) fL MCH (25.0-35.0) pg MCHC (31.0-37.0) g/dL RDW (11.5-15.5) % Plt Count (150-450) k/uL Neutrophils % % Lymphocytes % % Monocytes % % Eosinophils % % Basophils % % Neutrophils # (1.3-7.7) k/uL Lymphocytes # (1.0-4.8) k/uL Monocytes # (0-1.0) k/uL Eosinophils # (0-0.7) k/uL Basophils # (0-0.2) k/uL Manual Slide Review Toxic Granulation Poikilocytosis Anisocytosis Macrocytosis PT 13.3 H (9.0-12.0) sec INR 1.3 H (<1.2) APTT 23.3 (22.0-30.0) sec Sodium 142 (137-145) mmol/L Potassium 2.9 L (3.5-5.1) mmol/L Chloride 108 H (98-107) mmol/L Carbon Dioxide 25 (22-30) mmol/L Anion Gap 9 mmol/L BUN 16 (7-17) mg/dL Creatinine 1.11 H (0.52-1.04) mg/dL Est GFR (CKD-EPI)AfAm 58 (>60 ml/min/1.73 sqM) Est GFR (CKD-EPI)NonAf 50 (>60 ml/min/1.73 sqM) Glucose 148 H (74-99) mg/dL POC Glucose (mg/dL) (75-99) mg/dL POC Glu Pain Coordinator ID Calcium 8.4 (8.4-10.2) mg/dL Total Bilirubin 2.3 H (0.2-1.3) mg/dL AST 73 H (14-36) U/L ALT 36 (9-52) U/L Alkaline Phosphatase 344 H (38-126) U/L Ammonia (<30) umol/L Total Protein 6.7 (6.3-8.2) g/dL Albumin 3.0 L (3.5-5.0) g/dL Disposition Clinical Impression: Hepatocellular carcinoma, Hepatic encephalopathy, Hypokalemia, Delirium due to general medical condition Disposition: ADMITTED IP TO THIS HOSP Condition: Stable Is patient prescribed a controlled substance at d/c from ED?: No Referrals: Gilma Martinez MD [Primary Care Provider] - 1-2 days Decision to Admit Reason: Admit from EC Decision Date: 05/14/19 Decision Time: 17:59
[2019-05-14 16:16] LABS: INR 1.3 (<1.2); Partial Thromboplastin Time 23.3 sec (22.0-30.0); Prothrombin Time 13.3 sec (9.0-12.0)
[2019-05-14 16:18] LABS: Calcium 8.4 mg/dL (8.4-10.2); Potassium 2.9 mmol/L (3.5-5.1); Total Bilirubin 2.3 mg/dL (0.2-1.3); Total Protein 6.7 g/dL (6.3-8.2)
[2019-05-14] MEDS: SODIUM CHLORIDE 0.9% 1,000 ML IV SCH (16:26)
[2019-05-14 16:31] LABS: Anisocytosis Slight; Basophils % (A) 1 %; Eosinophils # (A) 0.2 k/uL (0-0.7); Eosinophils % (A) 3 %; HCT 40.6 % (34.0-46.0); HGB 13.9 gm/dL (11.4-16.0); Lymphocytes # (A) 0.9 k/uL (1.0-4.8); Lymphocytes % (A) 17 %; MCH 35.4 pg (25.0-35.0); MCHC 34.3 g/dL (31.0-37.0); Macrocytosis Moderate; Mean Platelet Volume 9.1; Monocytes # (A) 0.3 k/uL (0-1.0); Monocytes % (A) 6 %; Neutrophils # (A) 3.7 k/uL (1.3-7.7); Neutrophils % (A) 72 %; Poikilocytosis Slight; RBC 3.93 m/uL (3.80-5.40); RDW 16.2 % (11.5-15.5); WBC 5.1 k/uL (3.8-10.6)
[2019-05-14 16:32] LABS: MCV 103.3 fL (80.0-100.0)
[2019-05-14 16:41] LABS: Toxic Granulation Present
[2019-05-14 16:42] LABS: Platelet Count 87 k/uL (150-450)
--- NOTE | 2019-05-14 16:51 | XR ---
EXAMINATION TYPE: XR chest 2V DATE OF EXAM: 05/14/2019 COMPARISON: 04/30/2019 HISTORY: 73 year-old female altered mental status TECHNIQUE: AP and lateral views FINDINGS: Leftward patient rotation altering the normal cardiac and mediastinal contours. Heart upper limits of normal in size. Mild interstitial prominence of the chronic appearance. Strandy atelectasis in the l ower lungs. No sizable effusion. No monie consolidation. IMPRESSION: Chronic interstitial prominence and mild bibasilar atelectasis. No definite focal infiltrate.
--- NOTE | 2019-05-14 17:20 | CT ---
EXAMINATION TYPE: CT brain wo con DATE OF EXAM: 05/14/2019 COMPARISON: 04/30/2019 HISTORY: 73-year-old female confusion, altered mental status TECHNIQUE: Examination was done in axial plane without intravenous contrast. Coronal and sagittal r econstructions performed. CT DLP: 1129.4 mGycm Automated exposure control for dose reduction was used. FINDINGS: There is no evidence of acute intracranial hemorrhage, acute ischemic changes, mass, mass-effect, or extra-axial fluid collection. There is no effacement of cerebral sulci or basal subarachnoid cister ns. There is no hydrocephalus. There is no midline shift. Cano-white matter distinction is preserv ed. Moderate bifrontal cortical atrophy redemonstrated. Benign basal ganglia calcifications. Paranasal sinuses and mastoid air cells well pneumatized. Orbits and globes are intact. IMPRESSION: Similar moderate bifrontal atrophy. No acute intracranial abnormality seen.
[2019-05-14] MEDS ORDERED: LACTULOSE 20 GM/30 ML CUP PO ONE (17:50)
[2019-05-14] MEDS ORDERED: NALOXONE 0.4 MG/ML 1 ML VIAL IV PRN (17:53)
[2019-05-14] MEDS ORDERED: MAGNESIUM SULFATE-D5W PMX 1 GM in DEXTROSE/WATER 1 100ML.BAG IVPB ONE (17:58)
[2019-05-14 20:09] LABS: Appearance,Urine Cloudy (Clear); Bacteria,Urine Rare /hpf; Bilirubin,Urine Negative (Negative); Blood,Urine Negative (Negative); Color,Urine Yellow; Glucose,Urine (UA) Negative (Negative); Hyaline Casts,Urine 24 /lpf (0-2); Ketones,Urine Negative (Negative); Leukocyte Esterase,Urine Negative (Negative); Mucus,Urine Rare /hpf; Nitrite,Urine Negative (Negative); Protein,Urine Negative (Negative); RBC,Urine <1 /hpf (0-5); Specific Gravity,Urine 1.012 (1.001-1.035); Squamous Epithelial Cell,Urine 9 /hpf (0-4); Urobilinogen,Urine <2.0 mg/dL (<2.0); WBC,Urine 2 /hpf (0-5)
[2019-05-14 20:16] LABS: Amphetamine Screen,Urine Not Detected (NotDetected); Barbiturate Screen,Urine Not Detected (NotDetected); Benzodiazepines Screen,Urine Not Detected (NotDetected); Cocaine Screen,Urine Not Detected (NotDetected); Methadone Screen, Urine Not Detected (NotDetected); Opiate Screen,Urine Detected (NotDetected); Oxycodone Screen, Urine Not Detected (NotDetected); Phencyclidine Screen,Urine Not Detected (NotDetected); Tricyclic Antidepressant,Urine Not Detected (NotDetected); Urn Cannabinoid Scrn Not Detected (NotDetected)
[2019-05-14] MEDS: POTASSIUM CHLORIDE 10 MEQ in WATER FOR INJECTION 1 100ML.BAG IVPB SCH ×3 (20:39→23:27)
[2019-05-14 22:43] LABS: Glucose,Whole Blood 164 mg/dL (75-99)
[2019-05-14] MEDS: LACTULOSE 20 GM/30 ML CUP PO SCH (23:35)
[2019-05-15] MEDS: POTASSIUM CHLORIDE 10 MEQ in WATER FOR INJECTION 1 100ML.BAG IVPB SCH (00:58)
[2019-05-15] MEDS: INSULIN NPH 300 UNIT/3 ML VIAL SQ SCH ×3 (02:29→21:50)
[2019-05-15 03:45] LABS: Glucose,Whole Blood 130 mg/dL (75-99)
[2019-05-15] MEDS: SODIUM CHLORIDE 0.9% 1,000 ML IV SCH ×2 (04:40→17:44)
[2019-05-15 07:03] LABS: Glucose,Whole Blood 103 mg/dL (75-99)
[2019-05-15] MEDS: INSULIN REGULAR 100 UNIT/ML VIAL SQ SCH ×3 (09:30→17:43)
[2019-05-15] MEDS: ZINC OXIDE 20% OINT 28.4 GM TUBE TOPICAL SCH ×2 (09:43→21:56)
[2019-05-15] MEDS: FERROUS SULFATE 325 MG TAB PO SCH ×2 (09:43→21:50)
[2019-05-15] MEDS: SODIUM BICARBONATE TAB 650 MG TAB PO SCH ×2 (09:44→21:55)
[2019-05-15] MEDS: SUCRALFATE 1 GM TAB PO SCH ×4 (09:44→21:56)
[2019-05-15] MEDS: METOPROLOL TARTRATE 12.5 MG TAB PO SCH ×2 (09:44→21:55)
[2019-05-15] MEDS: RIFAXIMIN 550 MG TABLET PO SCH ×2 (09:44→21:55)
[2019-05-15] MEDS: PANTOPRAZOLE 40 MG TABLET PO SCH ×2 (09:44→21:55)
[2019-05-15] MEDS: POTASSIUM CHLORIDE ER 20 MEQ TAB.ER PO SCH ×4 (09:44→21:55)
[2019-05-15] MEDS: DICYCLOMINE 20 MG TAB PO SCH ×3 (09:44→21:56)
[2019-05-15] MEDS: buPROPion SR 150 MG TABLET.ER PO SCH (09:45)
[2019-05-15] MEDS: CHOLECALCIFEROL 1,000 UNIT TAB PO SCH (09:45)
[2019-05-15] MEDS: LACTULOSE 20 GM/30 ML CUP PO SCH ×4 (09:48→21:51)
[2019-05-15] MEDS: MAGNESIUM HYDROXIDE 2,400 MG/10 ML CUP PO SCH ×2 (09:49→21:51)
[2019-05-15 10:00] LABS: Basophils % (A) 0 %; Eosinophils # (A) 0.2 k/uL (0-0.7); Eosinophils % (A) 3 %; HCT 43.7 % (34.0-46.0); HGB 13.8 gm/dL (11.4-16.0); Lymphocytes # (A) 0.8 k/uL (1.0-4.8); Lymphocytes % (A) 14 %; MCHC 31.6 g/dL (31.0-37.0); MCV 107.5 fL (80.0-100.0); Macrocytosis Marked; Mean Platelet Volume 8.8; Monocytes # (A) 0.3 k/uL (0-1.0); Monocytes % (A) 6 %; Neutrophils # (A) 4.3 k/uL (1.3-7.7); Neutrophils % (A) 75 %; Poikilocytosis Slight; RBC 4.06 m/uL (3.80-5.40); RDW 15.1 % (11.5-15.5); WBC 5.8 k/uL (3.8-10.6)
[2019-05-15 10:07] LABS: Platelet Count 97 k/uL (150-450)
[2019-05-15 10:16] LABS: Calcium 8.5 mg/dL (8.4-10.2); Potassium 3.1 mmol/L (3.5-5.1); Total Bilirubin 4.2 mg/dL (0.2-1.3); Total Protein 6.7 g/dL (6.3-8.2)
[2019-05-15 11:24] LABS: Glucose,Whole Blood 282 mg/dL (75-99)
[2019-05-15] MEDS ORDERED: Potassium Replacement Protocol 1 EACH MISC MISCELLANE PRN ×2 (12:11→20:07)
[2019-05-15 12:35] LABS: Glucose,Whole Blood 263 mg/dL (75-99)
--- NOTE | 2019-05-15 12:45 | P.HPIM ---
History of Present Illness H&P Date: 05/15/19 This is a 73-year-old female patient of Dr. Kurtz who presented with altered mental status changes. Patient was noted to have increased confusion and lethargy. Patient has past medical history of liver cancer, diabetes mellitus, GERD, hypertension, liver disease, myocardial infarction, renal disease, anxiety and depression. Patient was recently admitted for hepatic encephalopathy. During that the patient received paracentesis. Patient is maintained on lactulose and Xifaxan. Patient cannot take the xifaxan at home due to cost. Head CT completed showing similar moderate bifrontal atrophy. No acute intracranial abnormality seen. Chest x-ray completed showing chronic interstitial prominence and mild bibasilar atelectasis. No definite focal infiltrate. Ammonia level 86. Patient's home dose of lactulose and Xifaxan reordered. At this time patient is resting in bed. Patient is having some confusion. She denies any chest pain or shortness of breath. Patient denies any recent illness with nausea vomiting or diarrhea. Patient denies any urinary burning or frequency. Review of Systems please refer to HPI otherwise unremarkable Past Medical History Past Medical History: Cancer, Diabetes Mellitus, GERD/Reflux, Hypertension, Liver Disease, Myocardial Infarction ([place]), Renal Disease Additional Past Medical History / Comment(s): Hepatocellular liver cancer with chemo immobilization-last time being 2017, ascities with paracentesis's , nonalcoholic liver cirrhosis, chronic pancytopenia, chronic elevated ammonia levels, hepatic encephalopathy, chronic elevated LFTs, chronic abdominal pain, stomach ulcer, diverticular disease with ileostomy, IDDM type II, iron anemia, CKD stage III, nonsustained vtach, UTI, high ammonia levels Last Myocardial Infarction Date:: unk History of Any Multi-Drug Resistant Organisms: MRSA Date of last positivie culture/infection: 12/30/18 MDRO Source:: Urine Past Surgical History: Appendectomy, Bowel Resection, Section, Cholecystectomy, Hysterectomy, Tonsillectomy Additional Past Surgical History / Comment(s): Chemo immobilizations, liver biopsies, paracentesis, bowel resection d/t diverticulitis/ileostomy, R rotator cuff repair, carpal tunnel release-laterality unknown. Past Anesthesia/Blood Transfusion Reactions: No Reported Reaction Past Psychological History: Anxiety, Depression Additional Psychological History / Comment(s): pt resides at [facility] [phone] Reformed smoker. . Retired. No experience. No animal exposures Smoking Status: Never smoker Past Alcohol Use History: None Reported Additional Past Alcohol Use History / Comment(s): started smoking 1962 and quit 1965 Past Drug Use History: None Reported - Past Family History Mother History Unknown: Yes Family Medical History: Congestive Heart Failure (CHF) Additional Family Medical History / Comment(s): Mother is 94 yrs old. Father Family Medical History: Chest Pain / Angina Additional Family Medical History / Comment(s): Father is . Medications and Allergies Home Medications Medication Instructions Recorded Confirmed Type Omeprazole [PriLOSEC] 20 mg PO BID 10/23/18 05/14/19 History Sucralfate [Carafate] 1 gm PO QID 10/23/18 05/14/19 History Insulin Regular, Human [NovoLIN R] 10 unit SQ AC-TID 10/24/18 05/14/19 History buPROPion SR [Wellbutrin SR] 150 mg PO DAILY #30 tablet.er 12/21/18 05/14/19 Rx Cholecalciferol [Vitamin D3 (25 4,000 unit PO DAILY 01/16/19 05/14/19 History Mcg = 1000 Iu)] Ferrous Sulfate [Iron (65 MG 325 mg PO BID 01/31/19 05/14/19 History Elemental)] Insulin NPH [humuLIN N] 18 unit SQ BID vial 02/06/19 05/14/19 Rx Dicyclomine [Bentyl] 20 mg PO TID 30 Days #180 cap 03/31/19 05/14/19 Rx Lactulose [Cephulac] 45 gm PO TID 04/07/19 05/14/19 History Rifaximin [Xifaxan] 550 mg PO BID tablet 04/17/19 05/14/19 Rx Sodium Bicarbonate Tab 1,300 mg PO BID tab 04/17/19 05/14/19 Rx Torsemide [Demadex] 20 mg PO Q48H 30 Days #30 tab 04/17/19 05/14/19 Rx Potassium Chloride [Klor-Con 20] 20 meq PO DAILY 04/21/19 05/14/19 History Metoprolol Tartrate [Lopressor] 12.5 mg PO BID 04/30/19 05/14/19 History Magnesium Oxide [William] 500 mg PO BID #6 tablet 05/05/19 05/14/19 Rx Zinc Oxide 20% Oint 1 applic TOPICAL BID #1 tube 05/05/19 05/14/19 Rx Allergies Allergy/AdvReac Type Severity Reaction Status Date / Time amlodipine Allergy Rash/Hives Verified 05/14/19 16:03 oxycodone Allergy Rash/Hives Verified 05/14/19 16:03 Penicillins Allergy Rash/Hives Verified 05/14/19 16:03 hydromorphone [From Dilaudid] AdvReac Mild tactile Verified 05/14/19 16:03 disturbance GREG Inhibitors AdvReac Cough Verified 05/14/19 16:03 sodium dodecyclbenzene Allergy Rash/Hives Uncoded 05/14/19 16:03 sulfonate Physical Exam Vitals: Vital Signs Temp Pulse Pulse Resp BP BP Pulse Ox 05/15/19 07:00 97.7 F 76 16 123/71 99 05/15/19 01:05 97.6 F 95 18 108/66 100 05/14/19 20:00 98.0 F 72 18 133/87 100 05/14/19 19:15 75 16 123/69 05/14/19 19:00 75 18 135/106 05/14/19 18:45 79 16 139/72 05/14/19 18:30 70 19 125/76 05/14/19 18:15 72 18 121/71 100 05/14/19 18:00 61 15 133/70 05/14/19 17:45 65 16 142/82 05/14/19 17:30 66 15 129/84 05/14/19 17:15 75 19 140/86 05/14/19 17:00 75 18 128/79 05/14/19 16:45 128/79 05/14/19 16:30 128/79 05/14/19 16:15 68 21 130/71 05/14/19 16:00 67 18 123/69 05/14/19 15:45 65 18 133/74 05/14/19 15:15 76 17 127/65 05/14/19 15:00 67 18 131/74 05/14/19 14:45 138/71 05/14/19 14:44 97.7 F 72 18 131/74 96 Intake and Output 05/14/19 05/15/19 05/15/19 22:59 06:59 14:59 Intake Total 0 10 236 Output Total 1993 Balance 0 10 -1758 Intake: Oral 0 10 236 Output: Urine 1300 Straight 575 Post Void Residual 694 Other: # Voids 1 1 # Bowel Movements 1 1 Head normocephalic Neck supple Lungs clear to auscultation bilaterally no wheezing or crackles Heart regular rate and rhythm S1-S2, no rub or gallop Abdomen is soft nontender nondistended positive bowel sounds no hepatosplenomegaly. Ostomy in place Extremities no edema Neuro alert and orientated to 3. Results CBC & Chem 7: 05/15/19 09:37 05/15/19 09:37 Labs: Abnormal Lab Results - Last 24 Hours (Table) 05/14/19 05/14/19 05/14/19 Range/Units 15:15 15:20 15:20 MCV 103.3 H D (80.0-100.0) fL MCH 35.4 H (25.0-35.0) pg RDW 16.2 H (11.5-15.5) % Plt Count 87 L (150-450) k/uL Lymphocytes # 0.9 L (1.0-4.8) k/uL Macrocytosis PT (9.0-12.0) sec INR (<1.2) Potassium (3.5-5.1) mmol/L Chloride (98-107) mmol/L Carbon Dioxide (22-30) mmol/L Creatinine (0.52-1.04) mg/dL Glucose (74-99) mg/dL POC Glucose (mg/dL) 149 H (75-99) mg/dL Total Bilirubin (0.2-1.3) mg/dL AST (14-36) U/L Alkaline Phosphatase (38-126) U/L Ammonia 86 H (<30) umol/L Albumin (3.5-5.0) g/dL Urine Appearance (Clear) Ur Squamous Epith Cells (0-4) /hpf Urine Bacteria (None) /hpf Hyaline Casts (0-2) /lpf Urine Mucus (None) /hpf Urine Opiates Screen (NotDetected) 05/14/19 05/14/19 05/14/19 Range/Units 15:20 15:20 19:29 MCV (80.0-100.0) fL MCH (25.0-35.0) pg RDW (11.5-15.5) % Plt Count (150-450) k/uL Lymphocytes # (1.0-4.8) k/uL Macrocytosis PT 13.3 H (9.0-12.0) sec INR 1.3 H (<1.2) Potassium 2.9 L (3.5-5.1) mmol/L Chloride 108 H (98-107) mmol/L Carbon Dioxide (22-30) mmol/L Creatinine 1.11 H (0.52-1.04) mg/dL Glucose 148 H (74-99) mg/dL POC Glucose (mg/dL) (75-99) mg/dL Total Bilirubin 2.3 H (0.2-1.3) mg/dL AST 73 H (14-36) U/L Alkaline Phosphatase 344 H (38-126) U/L Ammonia (<30) umol/L Albumin 3.0 L (3.5-5.0) g/dL Urine Appearance Cloudy H (Clear) Ur Squamous Epith Cells 9 H (0-4) /hpf Urine Bacteria Rare H (None) /hpf Hyaline Casts 24 H (0-2) /lpf Urine Mucus Rare H (None) /hpf Urine Opiates Screen Detected H (NotDetected) 05/14/19 05/15/19 05/15/19 Range/Units 22:32 03:30 06:51 MCV (80.0-100.0) fL MCH (25.0-35.0) pg RDW (11.5-15.5) % Plt Count (150-450) k/uL Lymphocytes # (1.0-4.8) k/uL Macrocytosis PT (9.0-12.0) sec INR (<1.2) Potassium (3.5-5.1) mmol/L Chloride (98-107) mmol/L Carbon Dioxide (22-30) mmol/L Creatinine (0.52-1.04) mg/dL Glucose (74-99) mg/dL POC Glucose (mg/dL) 164 H 130 H 103 H (75-99) mg/dL Total Bilirubin (0.2-1.3) mg/dL AST (14-36) U/L Alkaline Phosphatase (38-126) U/L Ammonia (<30) umol/L Albumin (3.5-5.0) g/dL Urine Appearance (Clear) Ur Squamous Epith Cells (0-4) /hpf Urine Bacteria (None) /hpf Hyaline Casts (0-2) /lpf Urine Mucus (None) /hpf Urine Opiates Screen (NotDetected) 05/15/19 05/15/19 05/15/19 Range/Units 09:37 09:37 09:37 MCV 107.5 H (80.0-100.0) fL MCH (25.0-35.0) pg RDW (11.5-15.5) % Plt Count 97 L (150-450) k/uL Lymphocytes # (1.0-4.8) k/uL Macrocytosis Marked A PT (9.0-12.0) sec INR (<1.2) Potassium 3.1 L (3.5-5.1) mmol/L Chloride 111 H (98-107) mmol/L Carbon Dioxide 21 L (22-30) mmol/L Creatinine (0.52-1.04) mg/dL Glucose 191 H (74-99) mg/dL POC Glucose (mg/dL) (75-99) mg/dL Total Bilirubin 4.2 H (0.2-1.3) mg/dL AST 68 H (14-36) U/L Alkaline Phosphatase 284 H (38-126) U/L Ammonia 93 H (<30) umol/L Albumin 3.0 L (3.5-5.0) g/dL Urine Appearance (Clear) Ur Squamous Epith Cells (0-4) /hpf Urine Bacteria (None) /hpf Hyaline Casts (0-2) /lpf Urine Mucus (None) /hpf Urine Opiates Screen (NotDetected) 05/15/19 Range/Units 11:12 MCV (80.0-100.0) fL MCH (25.0-35.0) pg RDW (11.5-15.5) % Plt Count (150-450) k/uL Lymphocytes # (1.0-4.8) k/uL Macrocytosis PT (9.0-12.0) sec INR (<1.2) Potassium (3.5-5.1) mmol/L Chloride (98-107) mmol/L Carbon Dioxide (22-30) mmol/L Creatinine (0.52-1.04) mg/dL Glucose (74-99) mg/dL POC Glucose (mg/dL) 282 H (75-99) mg/dL Total Bilirubin (0.2-1.3) mg/dL AST (14-36) U/L Alkaline Phosphatase (38-126) U/L Ammonia (<30) umol/L Albumin (3.5-5.0) g/dL Urine Appearance (Clear) Ur Squamous Epith Cells (0-4) /hpf Urine Bacteria (None) /hpf Hyaline Casts (0-2) /lpf Urine Mucus (None) /hpf Urine Opiates Screen (NotDetected) Thrombosis Risk Factor Assmnt - Choose All That Apply Each Risk Factor Represents 2 Points: Age 61-74 years Thrombosis Risk Factor Assessment Total Risk Factor Score: 2 Thrombosis Risk Factor Assessment Level: Low Risk Assessment and Plan Assessment: 1. Altered mental status changes likely due to acute hepatic encephalopathy with elevated ammonia level. 2. History of Nonalcoholic liver cirrhosis 3. History of hepatocellular carcinoma 4. Chronic kidney disease stage III 5. Chronic thrombocytopenia related to liver disease 6. Mild protein calorie malnutrition. glucerna shakes added 7. Hypokalemia. Potassium replacement protocol will continue to monitor 8. Chronic abdominal ascites. Patient's liver cirrhosis. Patient underwent paracentesis on 05/02/2019 9. Stage I pressure ulcer on coccyx present on admission continue zinc oxide. maintaine pressure alleviating positions 10. Diabetes mellitus type 2. Home meds resumed GI prophylaxis Protonix. DVT prophylaxis SCDs due to chronic thrombocytopenia Time with Patient: Greater than 30 (Greater than 60% of the total time spent in counseling and coordination of care. I performed an examination of the patient and discussed their management with the Nurse Practitioner. I have reviewed the Nurse Practitioner's notes and agree with the documented findings and plan of care)
[2019-05-15] MEDS: TORSEMIDE 20 MG TAB PO SCH (13:06)
[2019-05-15] MEDS: MORPHINE SULFATE ER 15 MG TABLET PO SCH (14:21)
[2019-05-15 16:49] LABS: Glucose,Whole Blood 314 mg/dL (75-99)
[2019-05-15 21:38] LABS: Glucose,Whole Blood 180 mg/dL (75-99)
[2019-05-15] MEDS: ONDANSETRON 4 MG/2 ML VIAL IVP PRN (22:16)
[2019-05-16] MEDS: POTASSIUM CHLORIDE ER 20 MEQ TAB.ER PO SCH ×6 (00:13→23:39)
[2019-05-16] MEDS: POTASSIUM CHLORIDE 10 MEQ in WATER FOR INJECTION 1 100ML.BAG IVPB SCH ×4 (01:04→05:53)
[2019-05-16] MEDS: SODIUM CHLORIDE 0.9% 1,000 ML IV SCH ×2 (05:54→20:20)
[2019-05-16 07:04] LABS: Glucose,Whole Blood 160 mg/dL (75-99)
[2019-05-16] MEDS: INSULIN NPH 300 UNIT/3 ML VIAL SQ SCH ×2 (08:18→20:22)
[2019-05-16] MEDS: INSULIN REGULAR 100 UNIT/ML VIAL SQ SCH ×3 (08:19→16:59)
[2019-05-16] MEDS: DICYCLOMINE 20 MG TAB PO SCH ×3 (08:20→23:28)
[2019-05-16] MEDS: CHOLECALCIFEROL 1,000 UNIT TAB PO SCH (08:21)
[2019-05-16] MEDS: FERROUS SULFATE 325 MG TAB PO SCH ×2 (08:22→20:21)
[2019-05-16] MEDS: buPROPion SR 150 MG TABLET.ER PO SCH (08:22)
[2019-05-16] MEDS: MAGNESIUM HYDROXIDE 2,400 MG/10 ML CUP PO SCH ×2 (08:23→20:42)
[2019-05-16] MEDS: SUCRALFATE 1 GM TAB PO SCH ×4 (08:23→20:22)
[2019-05-16] MEDS: LACTULOSE 20 GM/30 ML CUP PO SCH ×3 (08:23→22:42)
[2019-05-16] MEDS: METOPROLOL TARTRATE 12.5 MG TAB PO SCH ×2 (08:28→20:21)
[2019-05-16] MEDS: ZINC OXIDE 20% OINT 28.4 GM TUBE TOPICAL SCH ×2 (08:29→22:57)
[2019-05-16] MEDS: MORPHINE SULFATE ER 15 MG TABLET PO SCH ×2 (08:30→20:21)
[2019-05-16] MEDS: SODIUM BICARBONATE TAB 650 MG TAB PO SCH ×2 (08:30→20:42)
[2019-05-16] MEDS: PANTOPRAZOLE 40 MG TABLET PO SCH ×2 (08:32→20:21)
[2019-05-16] MEDS: RIFAXIMIN 550 MG TABLET PO SCH ×2 (08:33→20:26)
[2019-05-16 10:14] LABS: Basophils % (A) 0 %; Eosinophils # (A) 0.2 k/uL (0-0.7); Eosinophils % (A) 4 %; HCT 34.7 % (34.0-46.0); HGB 11.3 gm/dL (11.4-16.0); Hypochromasia Slight; Lymphocytes # (A) 1.1 k/uL (1.0-4.8); Lymphocytes % (A) 18 %; MCH 35.4 pg (25.0-35.0); MCHC 32.5 g/dL (31.0-37.0); Macrocytosis Marked; Mean Platelet Volume 9.6; Monocytes # (A) 0.3 k/uL (0-1.0); Monocytes % (A) 5 %; Neutrophils # (A) 4.3 k/uL (1.3-7.7); Neutrophils % (A) 71 %; RBC 3.19 m/uL (3.80-5.40); RDW 15.9 % (11.5-15.5)
[2019-05-16 10:15] LABS: Albumin 2.1 g/dL (3.5-5.0); Calcium 7.7 mg/dL (8.4-10.2); Platelet Count 87 k/uL (150-450); Potassium 3.3 mmol/L (3.5-5.1); Total Bilirubin 2.5 mg/dL (0.2-1.3); Total Protein 5.1 g/dL (6.3-8.2)
[2019-05-16 11:46] LABS: Glucose,Whole Blood 163 mg/dL (75-99)
[2019-05-16] MEDS ORDERED: Potassium Replacement Protocol 1 EACH MISC MISCELLANE PRN (13:35)
--- NOTE | 2019-05-16 14:27 | P.PN ---
Subjective Progress Note Date: 05/16/19 This is a 73-year-old female patient of Dr. Kurtz who presented with altered mental status changes. Patient was noted to have increased confusion and lethargy. Patient has past medical history of liver cancer, diabetes mellitus, GERD, hypertension, liver disease, myocardial infarction, renal disease, anxiety and depression. Patient was recently admitted for hepatic encephalopathy. During that the patient received paracentesis. Patient is maintained on lactulose and Xifaxan. Patient cannot take the xifaxan at home due to cost. Head CT completed showing similar moderate bifrontal atrophy. No acute intracranial abnormality seen. Chest x-ray completed showing chronic interstitial prominence and mild bibasilar atelectasis. No definite focal infiltrate. Ammonia level 86. Patient's home dose of lactulose and Xifaxan reordered. At this time patient is resting in bed. Patient is having some confusion. She denies any chest pain or shortness of breath. Patient denies any recent illness with nausea vomiting or diarrhea. Patient denies any urinary burning or frequency. On 05/16/2019 patient is more awake and alert today. Ammonia level 25. Patient denies chest pain or shortness of breath. Patient denies nausea vomiting or diarrhea. Denies any urinary burning or frequency Objective - Vital Signs Vital signs: Vital Signs Temp 98.5 F 05/16/19 14:03 Pulse 59 L 05/16/19 14:03 Resp 17 05/16/19 14:03 BP 97/56 05/16/19 14:03 Pulse Ox 100 05/16/19 14:03 Intake & Output 05/15/19 05/16/19 05/16/19 18:59 06:59 18:59 Intake Total 1005 1200 Output Total 2219 875 Balance -1214 325 Intake: Intake, IV Titration 1200 Amount Sodium Chloride 0.9% 1, 1200 000 ml @ 75 mls/hr IV . [id number] [facility] Rx#:[id number] Oral 1005 Output: Urine 1525 300 Straight 575 Post Void Residual 694 Stool 500 Emesis 75 Other: Voiding Method Bedside Commode # Voids 1 2 2 # Bowel Movements 1 1 2 - Exam Head normocephalic Neck supple Lungs clear to auscultation bilaterally no wheezing or crackles Heart regular rate and rhythm S1-S2, no rub or gallop Abdomen is soft nontender nondistended positive bowel sounds no hepatosplenomegaly. Ostomy in place Extremities no edema Neuro alert and orientated to 3. - Labs CBC & Chem 7: 05/16/19 09:31 05/16/19 09:31 Labs: Abnormal Lab Results - Last 24 Hours (Table) 05/15/19 05/15/19 05/15/19 Range/Units 16:37 19:24 21:37 RBC (3.80-5.40) m/uL Hgb (11.4-16.0) gm/dL MCV (80.0-100.0) fL MCH (25.0-35.0) pg RDW (11.5-15.5) % Plt Count (150-450) k/uL Macrocytosis Potassium 3.2 L (3.5-5.1) mmol/L Chloride (98-107) mmol/L Creatinine (0.52-1.04) mg/dL Glucose (74-99) mg/dL POC Glucose (mg/dL) 314 H 180 H (75-99) mg/dL Calcium (8.4-10.2) mg/dL Total Bilirubin (0.2-1.3) mg/dL AST (14-36) U/L Alkaline Phosphatase (38-126) U/L Total Protein (6.3-8.2) g/dL Albumin (3.5-5.0) g/dL Lipase (23-300) U/L 05/16/19 05/16/19 05/16/19 Range/Units 07:02 09:31 09:31 RBC 3.19 L (3.80-5.40) m/uL Hgb 11.3 L (11.4-16.0) gm/dL MCV 109.0 H (80.0-100.0) fL MCH 35.4 H (25.0-35.0) pg RDW 15.9 H (11.5-15.5) % Plt Count 87 L (150-450) k/uL Macrocytosis Marked A Potassium 3.3 L (3.5-5.1) mmol/L Chloride 110 H (98-107) mmol/L Creatinine 1.10 H (0.52-1.04) mg/dL Glucose 253 H (74-99) mg/dL POC Glucose (mg/dL) 160 H (75-99) mg/dL Calcium 7.7 L (8.4-10.2) mg/dL Total Bilirubin 2.5 H (0.2-1.3) mg/dL AST 53 H (14-36) U/L Alkaline Phosphatase 199 H (38-126) U/L Total Protein 5.1 L (6.3-8.2) g/dL Albumin 2.1 L (3.5-5.0) g/dL Lipase 12 L (23-300) U/L 05/16/19 Range/Units 11:42 RBC (3.80-5.40) m/uL Hgb (11.4-16.0) gm/dL MCV (80.0-100.0) fL MCH (25.0-35.0) pg RDW (11.5-15.5) % Plt Count (150-450) k/uL Macrocytosis Potassium (3.5-5.1) mmol/L Chloride (98-107) mmol/L Creatinine (0.52-1.04) mg/dL Glucose (74-99) mg/dL POC Glucose (mg/dL) 163 H (75-99) mg/dL Calcium (8.4-10.2) mg/dL Total Bilirubin (0.2-1.3) mg/dL AST (14-36) U/L Alkaline Phosphatase (38-126) U/L Total Protein (6.3-8.2) g/dL Albumin (3.5-5.0) g/dL Lipase (23-300) U/L Assessment and Plan Assessment: 1. Altered mental status changes likely due to acute hepatic encephalopathy with elevated ammonia level. Ammonia level improving to 25 2. History of Nonalcoholic liver cirrhosis 3. History of hepatocellular carcinoma 4. Chronic kidney disease stage III 5. Chronic thrombocytopenia related to liver disease 6. Mild protein calorie malnutrition. glucerna shakes added 7. Hypokalemia. Potassium replacement protocol will continue to monitor 8. Chronic abdominal ascites. Patient's liver cirrhosis. Patient underwent paracentesis on 05/02/2019 9. Stage I pressure ulcer on coccyx present on admission continue zinc oxide. maintaine pressure alleviating positions 10. Diabetes mellitus type 2. Home meds resumed GI prophylaxis Protonix. DVT prophylaxis SCDs due to chronic thrombocytopenia I performed an examination of the patient and discussed their management with the Nurse Practitioner. I have reviewed the Nurse Practitioner's notes and agree with the documented findings and plan of care
[2019-05-16 16:36] LABS: Glucose,Whole Blood 162 mg/dL (75-99)
[2019-05-16 19:49] LABS: Glucose,Whole Blood 115 mg/dL (75-99)
[2019-05-17 07:06] LABS: Glucose,Whole Blood 116 mg/dL (75-99)
[2019-05-17 07:53] LABS: Basophils % (A) 1 %; Eosinophils # (A) 0.4 k/uL (0-0.7); Eosinophils % (A) 8 %; HGB 10.9 gm/dL (11.4-16.0); Hypochromasia Slight; Lymphocytes # (A) 1.3 k/uL (1.0-4.8); Lymphocytes % (A) 25 %; MCH 35.1 pg (25.0-35.0); MCHC 32.2 g/dL (31.0-37.0); MCV 108.9 fL (80.0-100.0); Macrocytosis Marked; Mean Platelet Volume 8.9; Monocytes # (A) 0.4 k/uL (0-1.0); Monocytes % (A) 7 %; Neutrophils % (A) 57 %; RBC 3.12 m/uL (3.80-5.40); RDW 14.9 % (11.5-15.5); WBC 5.2 k/uL (3.8-10.6)
[2019-05-17 07:59] LABS: Platelet Count 82 k/uL (150-450)
[2019-05-17 08:04] LABS: Albumin 2.1 g/dL (3.5-5.0); Calcium 7.8 mg/dL (8.4-10.2); Total Bilirubin 1.8 mg/dL (0.2-1.3); Total Protein 5.1 g/dL (6.3-8.2)
[2019-05-17 08:09] LABS: Potassium 4.8 mmol/L (3.5-5.1)
[2019-05-17] MEDS: MAGNESIUM HYDROXIDE 2,400 MG/10 ML CUP PO SCH ×2 (08:41→21:31)
[2019-05-17] MEDS: LACTULOSE 20 GM/30 ML CUP PO SCH ×3 (08:41→21:27)
[2019-05-17] MEDS: INSULIN REGULAR 100 UNIT/ML VIAL SQ SCH ×3 (08:41→17:02)
[2019-05-17] MEDS: INSULIN NPH 300 UNIT/3 ML VIAL SQ SCH ×2 (08:41→21:37)
[2019-05-17] MEDS: FERROUS SULFATE 325 MG TAB PO SCH ×2 (08:42→21:33)
[2019-05-17] MEDS: SODIUM BICARBONATE TAB 650 MG TAB PO SCH ×2 (08:42→21:36)
[2019-05-17] MEDS: PANTOPRAZOLE 40 MG TABLET PO SCH ×2 (08:42→21:36)
[2019-05-17] MEDS: MORPHINE SULFATE ER 15 MG TABLET PO SCH ×2 (08:42→21:34)
[2019-05-17] MEDS: RIFAXIMIN 550 MG TABLET PO SCH ×2 (08:43→21:36)
[2019-05-17] MEDS: DICYCLOMINE 10 MG CAP PO SCH ×3 (08:43→22:26)
[2019-05-17] MEDS: METOPROLOL TARTRATE 12.5 MG TAB PO SCH ×2 (08:43→21:33)
[2019-05-17] MEDS: CHOLECALCIFEROL 1,000 UNIT TAB PO SCH (08:43)
[2019-05-17] MEDS: SUCRALFATE 1 GM TAB PO SCH ×4 (08:43→22:26)
[2019-05-17] MEDS: buPROPion SR 150 MG TABLET.ER PO SCH (08:43)
[2019-05-17] MEDS: ZINC OXIDE 20% OINT 28.4 GM TUBE TOPICAL SCH ×2 (08:44→22:26)
[2019-05-17] MEDS: POTASSIUM CHLORIDE ER 20 MEQ TAB.ER PO SCH (08:44)
[2019-05-17] MEDS: SODIUM CHLORIDE 0.9% 1,000 ML IV SCH (10:11)
--- NOTE | 2019-05-17 10:13 | P.PN ---
Subjective Progress Note Date: 05/17/19 This is a 73-year-old female patient of Dr. Kurtz who presented with altered mental status changes. Patient was noted to have increased confusion and lethargy. Patient has past medical history of liver cancer, diabetes mellitus, GERD, hypertension, liver disease, myocardial infarction, renal disease, anxiety and depression. Patient was recently admitted for hepatic encephalopathy. During that the patient received paracentesis. Patient is maintained on lactulose and Xifaxan. Patient cannot take the xifaxan at home due to cost. Head CT completed showing similar moderate bifrontal atrophy. No acute intracranial abnormality seen. Chest x-ray completed showing chronic interstitial prominence and mild bibasilar atelectasis. No definite focal infiltrate. Ammonia level 86. Patient's home dose of lactulose and Xifaxan reordered. At this time patient is resting in bed. Patient is having some confusion. She denies any chest pain or shortness of breath. Patient denies any recent illness with nausea vomiting or diarrhea. Patient denies any urinary burning or frequency. On 05/16/2019 patient is more awake and alert today. Ammonia level 25. Patient denies chest pain or shortness of breath. Patient denies nausea vomiting or diarrhea. Denies any urinary burning or frequency On 05/17/2019 Patient is alert and oriented x3. family at bedside. Patient family reports that she was started on macrobid for UTI on per her PCP. At this time will order urinary analysis and Urine culture. ammonia level 70. Patient denies chest pain or shortness of breath. Patient denies any nausea or vomitting. patient does report some burning with urination. Objective - Vital Signs Vital signs: Vital Signs Temp 98.8 F 05/17/19 07:00 Pulse 56 L 05/17/19 07:00 Resp 15 05/17/19 07:00 BP 91/51 05/17/19 07:00 Pulse Ox 98 05/17/19 07:00 Intake & Output 05/16/19 05/17/19 05/17/19 18:59 06:59 18:59 Intake Total 260 Balance 260 Intake: Oral 260 Other: Voiding Method Bedside Commode # Voids 2 1 # Bowel Movements 2 1 - Exam Head normocephalic Neck supple Lungs clear to auscultation bilaterally no wheezing or crackles Heart regular rate and rhythm S1-S2, no rub or gallop Abdomen is soft nontender nondistended positive bowel sounds no hepatosplenomegaly. Ostomy in place Extremities no edema Neuro alert and orientated to 3. - Labs CBC & Chem 7: 05/17/19 06:59 05/17/19 06:59 Labs: Abnormal Lab Results - Last 24 Hours (Table) 05/16/19 05/16/19 05/16/19 Range/Units 09:31 09:31 11:42 RBC 3.19 L (3.80-5.40) m/uL Hgb 11.3 L (11.4-16.0) gm/dL MCV 109.0 H (80.0-100.0) fL MCH 35.4 H (25.0-35.0) pg RDW 15.9 H (11.5-15.5) % Plt Count 87 L (150-450) k/uL Macrocytosis Marked A Potassium 3.3 L (3.5-5.1) mmol/L Chloride 110 H (98-107) mmol/L Carbon Dioxide (22-30) mmol/L Creatinine 1.10 H (0.52-1.04) mg/dL Glucose 253 H (74-99) mg/dL POC Glucose (mg/dL) 163 H (75-99) mg/dL Calcium 7.7 L (8.4-10.2) mg/dL Total Bilirubin 2.5 H (0.2-1.3) mg/dL AST 53 H (14-36) U/L Alkaline Phosphatase 199 H (38-126) U/L Ammonia (<30) umol/L Total Protein 5.1 L (6.3-8.2) g/dL Albumin 2.1 L (3.5-5.0) g/dL Lipase 12 L (23-300) U/L 05/16/19 05/16/19 05/17/19 Range/Units 16:32 19:47 06:59 RBC 3.12 L (3.80-5.40) m/uL Hgb 10.9 L (11.4-16.0) gm/dL MCV 108.9 H (80.0-100.0) fL MCH 35.1 H (25.0-35.0) pg RDW (11.5-15.5) % Plt Count 82 L (150-450) k/uL Macrocytosis Marked A Potassium (3.5-5.1) mmol/L Chloride (98-107) mmol/L Carbon Dioxide (22-30) mmol/L Creatinine (0.52-1.04) mg/dL Glucose (74-99) mg/dL POC Glucose (mg/dL) 162 H 115 H (75-99) mg/dL Calcium (8.4-10.2) mg/dL Total Bilirubin (0.2-1.3) mg/dL AST (14-36) U/L Alkaline Phosphatase (38-126) U/L Ammonia (<30) umol/L Total Protein (6.3-8.2) g/dL Albumin (3.5-5.0) g/dL Lipase (23-300) U/L 05/17/19 05/17/19 05/17/19 Range/Units 06:59 06:59 07:05 RBC (3.80-5.40) m/uL Hgb (11.4-16.0) gm/dL MCV (80.0-100.0) fL MCH (25.0-35.0) pg RDW (11.5-15.5) % Plt Count (150-450) k/uL Macrocytosis Potassium (3.5-5.1) mmol/L Chloride 117 H (98-107) mmol/L Carbon Dioxide 21 L (22-30) mmol/L Creatinine (0.52-1.04) mg/dL Glucose 107 H (74-99) mg/dL POC Glucose (mg/dL) 116 H (75-99) mg/dL Calcium 7.8 L (8.4-10.2) mg/dL Total Bilirubin 1.8 H (0.2-1.3) mg/dL AST 65 H (14-36) U/L Alkaline Phosphatase 195 H (38-126) U/L Ammonia 70 H (<30) umol/L Total Protein 5.1 L (6.3-8.2) g/dL Albumin 2.1 L (3.5-5.0) g/dL Lipase (23-300) U/L Assessment and Plan Assessment: 1. Altered mental status changes likely due to acute hepatic encephalopathy with elevated ammonia level. Ammonia level improving to 75 Patient remains on lactlous and Xifaxan. 2. History of Nonalcoholic liver cirrhosis 3. History of hepatocellular carcinoma 4. Chronic kidney disease stage III 5. Chronic thrombocytopenia related to liver disease 6. Mild protein calorie malnutrition. glucerna shakes added 7. Hypokalemia. Potassium replacement protocol will continue to monitor 8. Chronic abdominal ascites. Patient's liver cirrhosis. Patient underwent paracentesis on 05/02/2019 9. Stage I pressure ulcer on coccyx present on admission continue zinc oxide. maintaine pressure alleviating positions 10. Diabetes mellitus type 2. Home meds resumed 11. Recent UTI. Patient reports that she was treated outpatient per her PCP for a Urinary tract infecton with Macrobid. Urinary anlaysis and urine culture ordrered. GI prophylaxis Protonix. DVT prophylaxis SCDs due to chronic thrombocytopenia I performed an examination of the patient and discussed their management with the Nurse Practitioner. I have reviewed the Nurse Practitioner's notes and agree with the documented findings and plan of care
[2019-05-17 11:56] LABS: Appearance,Urine Cloudy (Clear); Bacteria,Urine Few /hpf; Bilirubin,Urine Negative (Negative); Blood,Urine Negative (Negative); Color,Urine Yellow; Glucose,Urine (UA) Negative (Negative); Ketones,Urine Negative (Negative); Leukocyte Esterase,Urine Small (Negative); Mucus,Urine Rare /hpf; Nitrite,Urine Positive (Negative); PH, Urine 5.5 (5.0-8.0); Protein,Urine Trace (Negative); Specific Gravity,Urine 1.018 (1.001-1.035); Squamous Epithelial Cell,Urine 2 /hpf (0-4); Urobilinogen,Urine <2.0 mg/dL (<2.0); WBC,Urine 24 /hpf (0-5)
[2019-05-17 12:47] LABS: Glucose,Whole Blood 168 mg/dL (75-99)
[2019-05-17] MEDS: TORSEMIDE 20 MG TAB PO SCH (13:10)
[2019-05-17 16:30] LABS: Glucose,Whole Blood 105 mg/dL (75-99)
[2019-05-17 20:10] LABS: Glucose,Whole Blood 82 mg/dL (75-99)
[2019-05-18] MEDS: SODIUM CHLORIDE 0.9% 1,000 ML IV SCH ×2 (02:55→12:09)
[2019-05-18 06:50] LABS: Glucose,Whole Blood 86 mg/dL (75-99)
[2019-05-18] MEDS: INSULIN REGULAR 100 UNIT/ML VIAL SQ SCH ×3 (07:10→17:06)
[2019-05-18 07:36] LABS: Basophils % (A) 1 %; Eosinophils # (A) 0.4 k/uL (0-0.7); Eosinophils % (A) 7 %; HCT 36.2 % (34.0-46.0); HGB 11.4 gm/dL (11.4-16.0); Hypochromasia Slight; Lymphocytes # (A) 1.5 k/uL (1.0-4.8); Lymphocytes % (A) 27 %; MCH 34.2 pg (25.0-35.0); MCHC 31.5 g/dL (31.0-37.0); MCV 108.6 fL (80.0-100.0); Macrocytosis Marked; Mean Platelet Volume 8.7; Monocytes # (A) 0.4 k/uL (0-1.0); Monocytes % (A) 7 %; Neutrophils # (A) 3.2 k/uL (1.3-7.7); Neutrophils % (A) 56 %; RBC 3.33 m/uL (3.80-5.40); RDW 14.9 % (11.5-15.5); WBC 5.6 k/uL (3.8-10.6)
[2019-05-18 07:43] LABS: Platelet Count 93 k/uL (150-450)
[2019-05-18 07:54] LABS: Albumin 2.2 g/dL (3.5-5.0); Calcium 7.7 mg/dL (8.4-10.2); Potassium 3.7 mmol/L (3.5-5.1); Total Bilirubin 1.7 mg/dL (0.2-1.3); Total Protein 5.5 g/dL (6.3-8.2)
[2019-05-18 09:19] LABS: Glucose,Whole Blood 124 mg/dL (75-99)
[2019-05-18] MEDS: PANTOPRAZOLE 40 MG TABLET PO SCH ×2 (09:50→22:28)
[2019-05-18] MEDS: MAGNESIUM HYDROXIDE 2,400 MG/10 ML CUP PO SCH ×2 (09:50→22:29)
[2019-05-18] MEDS: DICYCLOMINE 10 MG CAP PO SCH ×3 (09:50→22:28)
[2019-05-18] MEDS: MORPHINE SULFATE ER 15 MG TABLET PO SCH ×2 (09:50→22:28)
[2019-05-18] MEDS: LACTULOSE 20 GM/30 ML CUP PO SCH ×3 (09:50→22:30)
[2019-05-18] MEDS: CHOLECALCIFEROL 1,000 UNIT TAB PO SCH (09:51)
[2019-05-18] MEDS: POTASSIUM CHLORIDE ER 20 MEQ TAB.ER PO SCH (09:51)
[2019-05-18] MEDS: FERROUS SULFATE 325 MG TAB PO SCH ×2 (09:51→22:28)
[2019-05-18] MEDS: SODIUM BICARBONATE TAB 650 MG TAB PO SCH ×2 (09:51→22:28)
[2019-05-18] MEDS: METOPROLOL TARTRATE 12.5 MG TAB PO SCH ×2 (09:51→22:27)
[2019-05-18] MEDS: SUCRALFATE 1 GM TAB PO SCH ×4 (09:51→22:27)
[2019-05-18] MEDS: RIFAXIMIN 550 MG TABLET PO SCH ×2 (09:51→22:27)
[2019-05-18] MEDS: INSULIN NPH 300 UNIT/3 ML VIAL SQ SCH ×2 (09:52→22:29)
[2019-05-18] MEDS: buPROPion SR 150 MG TABLET.ER PO SCH (09:52)
[2019-05-18] MEDS: ONDANSETRON 4 MG/2 ML VIAL IVP PRN (09:52)
[2019-05-18] MEDS: ZINC OXIDE 20% OINT 28.4 GM TUBE TOPICAL SCH ×2 (09:53→22:36)
--- NOTE | 2019-05-18 09:57 | P.PN ---
Subjective Progress Note Date: 05/18/19 This is a 73-year-old female patient of Dr. Kurtz who presented with altered mental status changes. Patient was noted to have increased confusion and lethargy. Patient has past medical history of liver cancer, diabetes mellitus, GERD, hypertension, liver disease, myocardial infarction, renal disease, anxiety and depression. Patient was recently admitted for hepatic encephalopathy. During that the patient received paracentesis. Patient is maintained on lactulose and Xifaxan. Patient cannot take the xifaxan at home due to cost. Head CT completed showing similar moderate bifrontal atrophy. No acute intracranial abnormality seen. Chest x-ray completed showing chronic interstitial prominence and mild bibasilar atelectasis. No definite focal infiltrate. Ammonia level 86. Patient's home dose of lactulose and Xifaxan reordered. At this time patient is resting in bed. Patient is having some confusion. She denies any chest pain or shortness of breath. Patient denies any recent illness with nausea vomiting or diarrhea. Patient denies any urinary burning or frequency. On 05/16/2019 patient is more awake and alert today. Ammonia level 25. Patient denies chest pain or shortness of breath. Patient denies nausea vomiting or diarrhea. Denies any urinary burning or frequency On 05/17/2019 Patient is alert and oriented x3. family at bedside. Patient family reports that she was started on macrobid for UTI on per her PCP. At this time will order urinary analysis and Urine culture. ammonia level 70. Patient denies chest pain or shortness of breath. Patient denies any nausea or vomitting. patient does report some burning with urination. On 05/18/2019 patient is alert and oriented 3. Ammonia level trending down to 61. Patient is complaining of some chronic abdominal pain. Patient denies any nausea or vomiting. Patient denies any chest pain or shortness of breath Objective - Vital Signs Vital signs: Vital Signs Temp 98.0 F 05/18/19 07:27 Pulse 58 L 05/18/19 07:27 Resp 16 05/18/19 07:27 BP 101/49 05/18/19 07:27 Pulse Ox 100 05/18/19 07:27 Intake & Output 05/17/19 05/18/19 05/18/19 18:59 06:59 18:59 Intake Total 1060 390 Output Total 450 Balance 610 390 Intake: Intake, IV Titration 150 Amount Sodium Chloride 0.9% 1, 150 000 ml @ 75 mls/hr IV . [id number] [facility] Rx#:[id number] Oral 1060 240 Output: Stool 450 Other: Voiding Method Toilet Toilet # Voids 3 1 # Bowel Movements 1 - Exam Head normocephalic Neck supple Lungs clear to auscultation bilaterally no wheezing or crackles Heart regular rate and rhythm S1-S2, no rub or gallop Abdomen is soft nontender nondistended positive bowel sounds no hepatosplenomegaly. Ostomy in place Extremities no edema Neuro alert and orientated to 3. - Labs CBC & Chem 7: 05/18/19 07:09 05/18/19 07:09 Labs: Abnormal Lab Results - Last 24 Hours (Table) 05/17/19 05/17/19 05/17/19 Range/Units 11:00 11:46 16:29 RBC (3.80-5.40) m/uL MCV (80.0-100.0) fL Plt Count (150-450) k/uL Macrocytosis Chloride (98-107) mmol/L Creatinine (0.52-1.04) mg/dL POC Glucose (mg/dL) 168 H 105 H (75-99) mg/dL Calcium (8.4-10.2) mg/dL Total Bilirubin (0.2-1.3) mg/dL AST (14-36) U/L Alkaline Phosphatase (38-126) U/L Ammonia (<30) umol/L Total Protein (6.3-8.2) g/dL Albumin (3.5-5.0) g/dL Urine Appearance Cloudy H (Clear) Urine Protein Trace H (Negative) Urine Nitrite Positive H (Negative) Ur Leukocyte Esterase Small H (Negative) Urine WBC 24 H (0-5) /hpf Urine Bacteria Few H (None) /hpf Urine Mucus Rare H (None) /hpf 05/18/19 05/18/19 05/18/19 Range/Units 07:09 07:09 07:09 RBC 3.33 L (3.80-5.40) m/uL MCV 108.6 H (80.0-100.0) fL Plt Count 93 L (150-450) k/uL Macrocytosis Marked A Chloride 110 H (98-107) mmol/L Creatinine 1.20 H (0.52-1.04) mg/dL POC Glucose (mg/dL) (75-99) mg/dL Calcium 7.7 L (8.4-10.2) mg/dL Total Bilirubin 1.7 H (0.2-1.3) mg/dL AST 60 H (14-36) U/L Alkaline Phosphatase 197 H (38-126) U/L Ammonia 61 H (<30) umol/L Total Protein 5.5 L (6.3-8.2) g/dL Albumin 2.2 L (3.5-5.0) g/dL Urine Appearance (Clear) Urine Protein (Negative) Urine Nitrite (Negative) Ur Leukocyte Esterase (Negative) Urine WBC (0-5) /hpf Urine Bacteria (None) /hpf Urine Mucus (None) /hpf 05/18/19 Range/Units 09:17 RBC (3.80-5.40) m/uL MCV (80.0-100.0) fL Plt Count (150-450) k/uL Macrocytosis Chloride (98-107) mmol/L Creatinine (0.52-1.04) mg/dL POC Glucose (mg/dL) 124 H (75-99) mg/dL Calcium (8.4-10.2) mg/dL Total Bilirubin (0.2-1.3) mg/dL AST (14-36) U/L Alkaline Phosphatase (38-126) U/L Ammonia (<30) umol/L Total Protein (6.3-8.2) g/dL Albumin (3.5-5.0) g/dL Urine Appearance (Clear) Urine Protein (Negative) Urine Nitrite (Negative) Ur Leukocyte Esterase (Negative) Urine WBC (0-5) /hpf Urine Bacteria (None) /hpf Urine Mucus (None) /hpf Microbiology - Last 24 Hours (Table) 05/17/19 11:00 Urine Culture - Preliminary Urine,Clean Catch Assessment and Plan Assessment: 1. Altered mental status changes likely due to acute hepatic encephalopathy with elevated ammonia level. Ammonia level improving to 61 Patient remains on lactlous and Xifaxan. 2. History of Nonalcoholic liver cirrhosis 3. History of hepatocellular carcinoma 4. Chronic kidney disease stage III 5. Chronic thrombocytopenia related to liver disease 6. Mild protein calorie malnutrition. glucerna shakes added 7. Hypokalemia. Potassium replacement protocol will continue to monitor 8. Chronic abdominal ascites. Patient's liver cirrhosis. Patient underwent paracentesis on 05/02/2019 9. Stage I pressure ulcer on coccyx present on admission continue zinc oxide. maintaine pressure alleviating positions 10. Diabetes mellitus type 2. Home meds resumed 11. Recent UTI. Patient reports that she was treated outpatient per her PCP for a Urinary tract infecton with Macrobid. Urinary anlaysis and urine culture ordrered. GI prophylaxis Protonix. DVT prophylaxis SCDs due to chronic thrombocytopenia Case management/social work note patient has been accepted to [facility] anticipate possible discharge tomorrow 05/19/2019 I performed an examination of the patient and discussed their management with the Nurse Practitioner. I have reviewed the Nurse Practitioner's notes and agree with the documented findings and plan of care
[2019-05-18 11:56] LABS: Glucose,Whole Blood 224 mg/dL (75-99)
[2019-05-18] MEDS: traMADol 50 MG TAB PO PRN (12:09)
[2019-05-18 16:40] LABS: Glucose,Whole Blood 116 mg/dL (75-99)
[2019-05-18 21:36] LABS: Glucose,Whole Blood 62 mg/dL (75-99)
[2019-05-19 00:02] LABS: Glucose,Whole Blood 138 mg/dL (75-99)
[2019-05-19] MEDS: SODIUM CHLORIDE 0.9% 1,000 ML IV SCH ×2 (05:54→17:18)
[2019-05-19 07:20] LABS: Glucose,Whole Blood 141 mg/dL (75-99)
[2019-05-19] MEDS: DICYCLOMINE 10 MG CAP PO SCH ×3 (07:41→21:11)
[2019-05-19] MEDS: PANTOPRAZOLE 40 MG TABLET PO SCH ×2 (07:41→20:15)
[2019-05-19] MEDS: MORPHINE SULFATE ER 15 MG TABLET PO SCH ×2 (07:41→20:15)
[2019-05-19] MEDS: SODIUM BICARBONATE TAB 650 MG TAB PO SCH ×2 (07:41→20:15)
[2019-05-19] MEDS: SUCRALFATE 1 GM TAB PO SCH ×4 (07:41→20:15)
[2019-05-19] MEDS: METOPROLOL TARTRATE 12.5 MG TAB PO SCH ×2 (07:41→20:15)
[2019-05-19] MEDS: POTASSIUM CHLORIDE ER 20 MEQ TAB.ER PO SCH (07:42)
[2019-05-19] MEDS: buPROPion SR 150 MG TABLET.ER PO SCH (07:42)
[2019-05-19] MEDS: CHOLECALCIFEROL 1,000 UNIT TAB PO SCH (07:42)
[2019-05-19] MEDS: LACTULOSE 20 GM/30 ML CUP PO SCH ×3 (07:42→21:11)
[2019-05-19] MEDS: FERROUS SULFATE 325 MG TAB PO SCH ×2 (07:42→20:15)
[2019-05-19] MEDS: RIFAXIMIN 550 MG TABLET PO SCH ×2 (07:43→20:15)
[2019-05-19] MEDS: INSULIN REGULAR 100 UNIT/ML VIAL SQ SCH ×3 (07:43→17:16)
[2019-05-19] MEDS: MAGNESIUM HYDROXIDE 2,400 MG/10 ML CUP PO SCH ×2 (07:43→20:16)
[2019-05-19 11:14] VITALS: BMI 31.3
[2019-05-19 11:14] LABS: Basophils % (A) 1 %; Eosinophils # (A) 0.4 k/uL (0-0.7); Eosinophils % (A) 6 %; HCT 37.8 % (34.0-46.0); HGB 12.3 gm/dL (11.4-16.0); Lymphocytes # (A) 1.1 k/uL (1.0-4.8); Lymphocytes % (A) 20 %; MCH 34.9 pg (25.0-35.0); MCHC 32.5 g/dL (31.0-37.0); MCV 107.5 fL (80.0-100.0); Macrocytosis Moderate; Mean Platelet Volume 9.3; Monocytes # (A) 0.4 k/uL (0-1.0); Monocytes % (A) 7 %; Neutrophils # (A) 3.4 k/uL (1.3-7.7); Neutrophils % (A) 63 %; RBC 3.52 m/uL (3.80-5.40); RDW 15.5 % (11.5-15.5); WBC 5.4 k/uL (3.8-10.6)
[2019-05-19 11:20] LABS: Platelet Count 89 k/uL (150-450)
[2019-05-19 11:22] LABS: Albumin 2.5 g/dL (3.5-5.0); Calcium 8.3 mg/dL (8.4-10.2); Total Protein 5.9 g/dL (6.3-8.2)
--- NOTE | 2019-05-19 12:13 | P.PN ---
Subjective Progress Note Date: 05/19/19 This is a 73-year-old female patient of Dr. Kurtz who presented with altered mental status changes. Patient was noted to have increased confusion and lethargy. Patient has past medical history of liver cancer, diabetes mellitus, GERD, hypertension, liver disease, myocardial infarction, renal disease, anxiety and depression. Patient was recently admitted for hepatic encephalopathy. During that the patient received paracentesis. Patient is maintained on lactulose and Xifaxan. Patient cannot take the xifaxan at home due to cost. Head CT completed showing similar moderate bifrontal atrophy. No acute intracranial abnormality seen. Chest x-ray completed showing chronic interstitial prominence and mild bibasilar atelectasis. No definite focal infiltrate. Ammonia level 86. Patient's home dose of lactulose and Xifaxan reordered. At this time patient is resting in bed. Patient is having some confusion. She denies any chest pain or shortness of breath. Patient denies any recent illness with nausea vomiting or diarrhea. Patient denies any urinary burning or frequency. On 05/16/2019 patient is more awake and alert today. Ammonia level 25. Patient denies chest pain or shortness of breath. Patient denies nausea vomiting or diarrhea. Denies any urinary burning or frequency On 05/17/2019 Patient is alert and oriented x3. family at bedside. Patient family reports that she was started on macrobid for UTI on per her PCP. At this time will order urinary analysis and Urine culture. ammonia level 70. Patient denies chest pain or shortness of breath. Patient denies any nausea or vomitting. patient does report some burning with urination. On 05/18/2019 patient is alert and oriented 3. Ammonia level trending down to 61. Patient is complaining of some chronic abdominal pain. Patient denies any nausea or vomiting. Patient denies any chest pain or shortness of breath On 05/19/2018 patient is alert and oriented 3. Patient having increased confusion per nursing staff. Ammonia level increasing to 116. Patient agrees on lactulose 45 3 times a day and Xifaxan. Patient also started on Cipro for urinary tract infection with gram-negative bacilli. At this time patient denies any chest pain or shortness of breath. Patient is complaining of pain around stoma site which is chronic for patient. Patient denies any urinary burning or frequency. Objective - Vital Signs Vital signs: Vital Signs Temp 98.3 F 05/19/19 07:00 Pulse 64 05/19/19 08:00 Resp 20 05/19/19 08:00 BP 139/63 05/19/19 07:00 Pulse Ox 99 05/19/19 07:00 Intake & Output 05/18/19 05/19/19 05/19/19 18:59 06:59 18:59 Intake Total 200 Balance 200 Weight 90.718 kg Intake: Oral 200 Other: Voiding Method Toilet Toilet Toilet # Voids 1 - Exam Head normocephalic Neck supple Lungs clear to auscultation bilaterally no wheezing or crackles Heart regular rate and rhythm S1-S2, no rub or gallop Abdomen is soft nontender nondistended positive bowel sounds no hepatosplenomegaly. Ostomy in place Extremities no edema Neuro alert and orientated to 3. - Labs CBC & Chem 7: 05/19/19 10:47 05/19/19 10:47 Labs: Abnormal Lab Results - Last 24 Hours (Table) 05/18/19 05/18/19 05/18/19 Range/Units 16:39 21:07 23:33 RBC (3.80-5.40) m/uL MCV (80.0-100.0) fL Plt Count (150-450) k/uL Chloride (98-107) mmol/L Carbon Dioxide (22-30) mmol/L Creatinine (0.52-1.04) mg/dL Glucose (74-99) mg/dL POC Glucose (mg/dL) 116 H 62 L 138 H (75-99) mg/dL Calcium (8.4-10.2) mg/dL Total Bilirubin (0.2-1.3) mg/dL AST (14-36) U/L Alkaline Phosphatase (38-126) U/L Ammonia (<30) umol/L Total Protein (6.3-8.2) g/dL Albumin (3.5-5.0) g/dL 05/19/19 05/19/19 05/19/19 Range/Units 07:14 10:47 10:47 RBC 3.52 L (3.80-5.40) m/uL MCV 107.5 H (80.0-100.0) fL Plt Count 89 L (150-450) k/uL Chloride 113 H (98-107) mmol/L Carbon Dioxide 16 L (22-30) mmol/L Creatinine 1.22 H (0.52-1.04) mg/dL Glucose 217 H (74-99) mg/dL POC Glucose (mg/dL) 141 H (75-99) mg/dL Calcium 8.3 L (8.4-10.2) mg/dL Total Bilirubin 2.0 H (0.2-1.3) mg/dL AST 61 H (14-36) U/L Alkaline Phosphatase 212 H (38-126) U/L Ammonia (<30) umol/L Total Protein 5.9 L (6.3-8.2) g/dL Albumin 2.5 L (3.5-5.0) g/dL 05/19/19 Range/Units 10:47 RBC (3.80-5.40) m/uL MCV (80.0-100.0) fL Plt Count (150-450) k/uL Chloride (98-107) mmol/L Carbon Dioxide (22-30) mmol/L Creatinine (0.52-1.04) mg/dL Glucose (74-99) mg/dL POC Glucose (mg/dL) (75-99) mg/dL Calcium (8.4-10.2) mg/dL Total Bilirubin (0.2-1.3) mg/dL AST (14-36) U/L Alkaline Phosphatase (38-126) U/L Ammonia 116 H (<30) umol/L Total Protein (6.3-8.2) g/dL Albumin (3.5-5.0) g/dL Microbiology - Last 24 Hours (Table) 05/17/19 11:00 Urine Culture - Preliminary Urine,Clean Catch Gram Neg Bacilli Assessment and Plan Assessment: 1. Altered mental status changes likely due to acute hepatic encephalopathy with elevated ammonia level. Ammonia level improving to 61 Patient remains on lactlous and Xifaxan. 2. History of Nonalcoholic liver cirrhosis 3. History of hepatocellular carcinoma 4. Chronic kidney disease stage III. Currently 1.22 we'll continue to monitor 5. Chronic thrombocytopenia related to liver disease 6. Mild protein calorie malnutrition. glucerna shakes added 7. Hypokalemia. Potassium replacement protocol will continue to monitor 8. Chronic abdominal ascites. Patient's liver cirrhosis. Patient underwent paracentesis on 05/02/2019 9. Stage I pressure ulcer on coccyx present on admission continue zinc oxide. maintaine pressure alleviating positions 10. Diabetes mellitus type 2. Home meds resumed 11. Urinary tract infection. Urine culture growing gram-negative bacilli. Patient started on Cipro GI prophylaxis Protonix. DVT prophylaxis SCDs due to chronic thrombocytopenia Case management/social work note patient has been accepted to [facility] anticipate possible discharge tomorrow 05/19/2019 I performed an examination of the patient and discussed their management with the Nurse Practitioner. I have reviewed the Nurse Practitioner's notes and agree with the documented findings and plan of care
[2019-05-19] MEDS: TORSEMIDE 20 MG TAB PO SCH (12:16)
[2019-05-19] MEDS: INSULIN NPH 300 UNIT/3 ML VIAL SQ SCH ×2 (12:17→20:16)
[2019-05-19] MEDS: ZINC OXIDE 20% OINT 28.4 GM TUBE TOPICAL SCH ×2 (12:18→20:19)
[2019-05-19 12:21] LABS: Glucose,Whole Blood 167 mg/dL (75-99)
[2019-05-19 17:28] LABS: Glucose,Whole Blood 78 mg/dL (75-99)
[2019-05-19 19:59] LABS: Glucose,Whole Blood 175 mg/dL (75-99)
[2019-05-19] MEDS: CIPROFLOXACIN HCL 250 MG TAB PO SCH (20:15)
[2019-05-20] MEDS: SODIUM CHLORIDE 0.9% 1,000 ML IV SCH ×2 (04:31→17:34)
[2019-05-20 07:16] LABS: Glucose,Whole Blood 103 mg/dL (75-99)
[2019-05-20] MEDS: MORPHINE SULFATE ER 15 MG TABLET PO SCH ×2 (08:14→21:31)
[2019-05-20] MEDS: INSULIN NPH 300 UNIT/3 ML VIAL SQ SCH ×2 (08:14→21:39)
[2019-05-20] MEDS: POTASSIUM CHLORIDE ER 20 MEQ TAB.ER PO SCH (08:14)
[2019-05-20] MEDS: FERROUS SULFATE 325 MG TAB PO SCH ×2 (08:14→21:27)
[2019-05-20] MEDS: INSULIN REGULAR 100 UNIT/ML VIAL SQ SCH ×3 (08:14→17:10)
[2019-05-20] MEDS: RIFAXIMIN 550 MG TABLET PO SCH ×2 (08:14→21:30)
[2019-05-20] MEDS: SODIUM BICARBONATE TAB 650 MG TAB PO SCH ×2 (08:15→21:30)
[2019-05-20] MEDS: PANTOPRAZOLE 40 MG TABLET PO SCH ×2 (08:15→21:29)
[2019-05-20] MEDS: buPROPion SR 150 MG TABLET.ER PO SCH (08:15)
[2019-05-20] MEDS: MAGNESIUM HYDROXIDE 2,400 MG/10 ML CUP PO SCH ×2 (08:15→21:28)
[2019-05-20] MEDS: CHOLECALCIFEROL 1,000 UNIT TAB PO SCH (08:15)
[2019-05-20] MEDS: METOPROLOL TARTRATE 12.5 MG TAB PO SCH ×2 (08:15→21:29)
[2019-05-20] MEDS: LACTULOSE 20 GM/30 ML CUP PO SCH ×3 (08:15→21:33)
[2019-05-20] MEDS: SUCRALFATE 1 GM TAB PO SCH ×4 (08:15→21:30)
[2019-05-20] MEDS: DICYCLOMINE 10 MG CAP PO SCH ×3 (08:15→21:30)
[2019-05-20] MEDS: CIPROFLOXACIN HCL 250 MG TAB PO SCH ×2 (08:15→21:27)
[2019-05-20] MEDS: ZINC OXIDE 20% OINT 28.4 GM TUBE TOPICAL SCH ×2 (08:16→21:32)
[2019-05-20 08:43] LABS: Basophils % (A) 1 %; Eosinophils # (A) 0.3 k/uL (0-0.7); Eosinophils % (A) 6 %; HGB 11.2 gm/dL (11.4-16.0); Hypochromasia Slight; Lymphocytes # (A) 1.2 k/uL (1.0-4.8); Lymphocytes % (A) 30 %; MCH 34.7 pg (25.0-35.0); MCHC 32.1 g/dL (31.0-37.0); MCV 108.1 fL (80.0-100.0); Macrocytosis Marked; Mean Platelet Volume 9.7; Monocytes # (A) 0.3 k/uL (0-1.0); Monocytes % (A) 7 %; Neutrophils # (A) 2.2 k/uL (1.3-7.7); Neutrophils % (A) 52 %; RBC 3.24 m/uL (3.80-5.40); RDW 15.6 % (11.5-15.5); WBC 4.2 k/uL (3.8-10.6)
[2019-05-20 08:55] LABS: Platelet Count 74 k/uL (150-450)
[2019-05-20] MEDS: ONDANSETRON 4 MG/2 ML VIAL IVP PRN (10:15)
[2019-05-20 11:48] LABS: Glucose,Whole Blood 205 mg/dL (75-99)
--- NOTE | 2019-05-20 12:44 | P.PN ---
Subjective Progress Note Date: 05/20/19 This is a 73-year-old female patient of Dr. Kurtz who presented with altered mental status changes. Patient was noted to have increased confusion and lethargy. Patient has past medical history of liver cancer, diabetes mellitus, GERD, hypertension, liver disease, myocardial infarction, renal disease, anxiety and depression. Patient was recently admitted for hepatic encephalopathy. During that the patient received paracentesis. Patient is maintained on lactulose and Xifaxan. Patient cannot take the xifaxan at home due to cost. Head CT completed showing similar moderate bifrontal atrophy. No acute intracranial abnormality seen. Chest x-ray completed showing chronic interstitial prominence and mild bibasilar atelectasis. No definite focal infiltrate. Ammonia level 86. Patient's home dose of lactulose and Xifaxan reordered. At this time patient is resting in bed. Patient is having some confusion. She denies any chest pain or shortness of breath. Patient denies any recent illness with nausea vomiting or diarrhea. Patient denies any urinary burning or frequency. On 05/16/2019 patient is more awake and alert today. Ammonia level 25. Patient denies chest pain or shortness of breath. Patient denies nausea vomiting or diarrhea. Denies any urinary burning or frequency On 05/17/2019 Patient is alert and oriented x3. family at bedside. Patient family reports that she was started on macrobid for UTI on per her PCP. At this time will order urinary analysis and Urine culture. ammonia level 70. Patient denies chest pain or shortness of breath. Patient denies any nausea or vomitting. patient does report some burning with urination. On 05/18/2019 patient is alert and oriented 3. Ammonia level trending down to 61. Patient is complaining of some chronic abdominal pain. Patient denies any nausea or vomiting. Patient denies any chest pain or shortness of breath On 05/19/2019 patient is alert and oriented 3. Patient having increased confusion per nursing staff. Ammonia level increasing to 116. Patient agrees on lactulose 45 3 times a day and Xifaxan. Patient also started on Cipro for urinary tract infection with gram-negative bacilli. At this time patient denies any chest pain or shortness of breath. Patient is complaining of pain around stoma site which is chronic for patient. Patient denies any urinary burning or frequency. On 05/20/2019 patient was seen and examined on the medical floor she is alert and oriented 3 less confused than yesterday she is complaining of abdominal discomfort otherwise she denies any complaints there is no fever or chills no headache or dizziness no chest pain no shortness of breath no cough no nausea or vomiting she is having a bowel movement almost every hour, she denies any urinary symptoms Objective - Vital Signs Vital signs: Vital Signs Temp 98.4 F 05/20/19 07:00 Pulse 74 05/20/19 07:00 Resp 16 05/20/19 07:00 BP 99/59 05/20/19 07:00 Pulse Ox 99 05/20/19 07:00 Intake & Output 05/19/19 05/20/19 05/20/19 18:59 06:59 18:59 Intake Total 725 960 960 Balance 725 960 960 Weight 90.718 kg Intake: Intake, IV Titration 525 Amount Sodium Chloride 0.9% 1, 525 000 ml @ 75 mls/hr IV . [id number] [facility] Rx#:[id number] Oral 200 960 960 Other: Voiding Method Toilet # Voids 1 - Exam In general patient is alert Head normocephalic and atraumatic Neck supple no JVD no goiter Lungs clear to auscultation bilaterally no wheezing or crackles Heart regular rate and rhythm S1-S2, no rub or gallop Abdomen is soft nontender nondistended positive bowel sounds no hepatosplenomegaly. Ostomy in place Extremities 1+ edema bilaterally no cyanosis or clubbing Neuro no gross focal neurological deficit - Labs CBC & Chem 7: 05/20/19 07:37 05/19/19 10:47 Labs: Abnormal Lab Results - Last 24 Hours (Table) 05/19/19 05/20/19 05/20/19 Range/Units 19:57 07:14 07:37 RBC 3.24 L (3.80-5.40) m/uL Hgb 11.2 L (11.4-16.0) gm/dL MCV 108.1 H (80.0-100.0) fL RDW 15.6 H (11.5-15.5) % Plt Count 74 L (150-450) k/uL Macrocytosis Marked A POC Glucose (mg/dL) 175 H 103 H (75-99) mg/dL 05/20/19 Range/Units 11:35 RBC (3.80-5.40) m/uL Hgb (11.4-16.0) gm/dL MCV (80.0-100.0) fL RDW (11.5-15.5) % Plt Count (150-450) k/uL Macrocytosis POC Glucose (mg/dL) 205 H (75-99) mg/dL Microbiology - Last 24 Hours (Table) 05/17/19 11:00 Urine Culture - Final Urine,Clean Catch Escherichia coli Assessment and Plan Plan: 1. Altered mental status changes likely due to acute hepatic encephalopathy with elevated ammonia level. Ammonia level improving to 61 Patient remains on lactlous and Xifaxan. 2. History of Nonalcoholic liver cirrhosis 3. History of hepatocellular carcinoma 4. Chronic kidney disease stage III. Currently 1.22 we'll continue to monitor 5. Chronic thrombocytopenia related to liver disease 6. Mild protein calorie malnutrition. glucerna shakes added 7. Hypokalemia. Potassium replacement protocol will continue to monitor 8. Chronic abdominal ascites. Patient's liver cirrhosis. Patient underwent paracentesis on 05/02/2019 9. Stage I pressure ulcer on coccyx present on admission continue zinc oxide. maintaine pressure alleviating positions 10. Diabetes mellitus type 2. Home meds resumed 11. Urinary tract infection. Urine culture growing gram-negative bacilli. Patient started on Cipro GI prophylaxis Protonix. DVT prophylaxis SCDs due to chronic thrombocytopenia Case management/social work note patient has been accepted to [facility], possible discharge on Wednesday if patient continues to improve
[2019-05-20 17:05] LABS: Glucose,Whole Blood 95 mg/dL (75-99)
[2019-05-20 21:21] LABS: Glucose,Whole Blood 90 mg/dL (75-99)
--- NOTE | 2019-05-20 23:16 | P.CONS ---
History of Present Illness - Reason for Consult Consult date: 05/20/19 Encephalopathy Requesting physician: Artemio Lea - Chief Complaint Confusion - History of Present Illness 73 year female with a history of hepatocellular carcinoma status post chemoembolization, underlying nonalcoholic liver cirrhosis, portal hypertension and ascites paracentesis, diverticular disease with ileostomy placement, chronic abdominal pain, chronic kidney disease who presents to the hospital presented to the hospital due to confusion and altered mental status. She was recently admitted for hepatic encephalopathy during which she was treated with lactulose and Xifaxan therapy. After discharge the patient reports continuing her lactulose but was unable to afford the Xifaxan. Initially ammonia level was found to be 86 and she was restarted on lactulose and Xifaxan therapy. She had improvement in her ammonia and mentation until yesterday when ammonia was found to be back up to 116 and the nursing staff reported increased confusion. Curre ntly she is on lactulose at a dose of 45 3 times a day and Xifaxan as well as receiving treatments with ciprofloxacin for a urinary tract infection. She is seen sitting bedside reporting that she is tolerating diet. Stool output from ostomy is nonbloody with 4-5 bowel movements reported today. She denies any nausea or vomiting. She complains about some pain around the ostomy which is chronic. Review of Systems REVIEW OF SYSTEMS: CONSTITUTIONAL: Denies any fevers, chills, weight change or fatigue. CARDIOVASCULAR: Denies any chest pain, palpitations high or low blood pressures RESPIRATORY: Denies any shortness of breath, hemoptysis or cough. GENITOURINARY: No dysuria or hematuria. MUSCULOSKELETAL: No weakness reported. SKIN: Denies any new rashes or lesions, jaundice or pallor. PSYCHIATRIC: Denies any depression or anxiety. NEUROLOGY: Denies headache, denies any new focal deficits. EARS/NOSE/THROAT: No recent hearing change, congestion, nasal discharge or sore throat. EYES: No pain in eyes, discharge or change in vision. GASTROINTESTINAL: As per HPI. Past Medical History Past Medical History: Cancer, Diabetes Mellitus, GERD/Reflux, Hypertension, Liver Disease, Myocardial Infarction (NM), Renal Disease Additional Past Medical History / Comment(s): Hepatocellular liver cancer with chemo immobilization-last time being 2017, ascities with paracentesis's , nonalcoholic liver cirrhosis, chronic pancytopenia, chronic elevated ammonia l evels, hepatic encephalopathy, chronic elevated LFTs, chronic abdominal pain, stomach ulcer, diverticular disease with ileostomy, IDDM type II, iron anemia, CKD stage III, nonsustained vtach, UTI, high ammonia levels Last Myocardial Infarction Date:: unk History of Any Multi-Drug Resistant Organisms: MRSA, VRE Year Discovered:: 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 Past Anesthesia/Blood Transfusion Reactions: No Reported Reaction Past Psychological History: Anxiety, Depression Additional Psychological History / Comment(s): pt resides at [place] [phone] Reformed smoker. . Retired. No experience. No animal exposures Smoking Status: Never smoker Past Alcohol Use History: None Reported Additional Past Alcohol Use History / Comment(s): started smoking 1962 and quit 1965 Past Drug Use History: None Reported - Past Family History Mother History Unknown: Yes Family Medical History: Congestive Heart Failure (CHF) Additional Family Medical History / Comment(s): Mother is 94 yrs old. Father Family Medical History: Chest Pain / Angina Additional Family Medical History / Comment(s): Father is . Medications and Allergies Home Medications Medication Instructions Recorded Confirmed Type Omeprazole [PriLOSEC] 20 mg PO BID 10/23/18 05/14/19 History Sucralfate [Carafate] 1 gm PO QID 10/23/18 05/14/19 History Insulin Regular, Human [NovoLIN R] 10 unit SQ AC-TID 10/24/18 05/14/19 History buPROPion SR [Wellbutrin SR] 150 mg PO DAILY #30 tablet.er 12/21/18 05/14/19 Rx Cholecalciferol [Vitamin D3 (25 4,000 unit PO DAILY 01/16/19 05/14/19 History Mcg = 1000 Iu)] Ferrous Sulfate [Iron (65 MG 325 mg PO BID 01/31/19 05/14/19 History Elemental)] Insulin NPH [humuLIN N] 18 unit SQ BID vial 02/06/19 05/14/19 Rx Dicyclomine [Bentyl] 20 mg PO TID 30 Days #180 cap 03/31/19 05/14/19 Rx Lactulose [Cephulac] 45 gm PO TID 04/07/19 05/14/19 History Rifaximin [Xifaxan] 550 mg PO BID tablet 04/17/19 05/14/19 Rx Sodium Bicarbonate Tab 1,300 mg PO BID tab 04/17/19 05/14/19 Rx Torsemide [Demadex] 20 mg PO Q48H 30 Days #30 tab 04/17/19 05/14/19 Rx Potassium Chloride [Klor-Con 20] 20 meq PO DAILY 04/21/19 05/14/19 History Metoprolol Tartrate [Lopressor] 12.5 mg PO BID 04/30/19 05/14/19 History Magnesium Oxide [William] 500 mg PO BID #6 tablet 05/05/19 05/14/19 Rx Zinc Oxide 20% Oint 1 applic TOPICAL BID #1 tube 05/05/19 05/14/19 Rx Morphine Sulfate [Ms Contin] 15 mg PO BID 05/15/19 05/15/19 History Allergies Allergy/AdvReac Type Severity Reaction Status Date / Time amlodipine Allergy Rash/Hives Verified 05/14/19 16:03 oxycodone Allergy Rash/Hives Verified 05/14/19 16:03 Penicillins Allergy Rash/Hives Verified 05/14/19 16:03 hydromorphone [From Dilaudid] AdvReac Mild tactile Verified 05/14/19 16:03 disturbance GREG Inhibitors AdvReac Cough Verified 05/14/19 16:03 sodium dodecyclbenzene Allergy Rash/Hives Uncoded 05/14/19 16:03 sulfonate Physical Exam Vitals: Vital Signs Temp Pulse Resp BP Pulse Ox 05/20/19 07:00 98.4 F 74 16 99/59 99 05/20/19 02:31 98.2 F 75 16 98/65 96 05/19/19 19:51 98.3 F 60 17 106/65 100 05/19/19 16:00 60 20 05/19/19 15:00 98.0 F 60 20 100/50 100 Intake and Output 05/19/19 05/20/19 05/20/19 22:59 06:59 14:59 Intake Total 480 480 960 Balance 480 480 960 Intake: Oral 480 480 960 Other: Voiding Method Toilet # Voids 1 On physical examination, patient appears comfortable in no apparent distress. HEAD: Normocephalic, atraumatic. EYES: No scleral icterus. No conjunctival injection. MOUTH: No lesions, tongue midline. NECK: Trachea midline, no gross abnormalities. CHEST: Clear to auscultation with no wheezing or rhonchi appreciated. HEART: Regular rate and rhythm. ABDOMEN: Soft, obese with ostomy intact on right abdomen with nonbloody output noted. Bowel sounds are positive. No organomegaly. No guarding or rigidity. EXTREMITIES: No pedal edema. SKIN: No rashes, no jaundice. NEUROLOGIC: Alert and oriented x3, no asterixis noted. No focal deficits. Results CBC & Chem 7: 05/20/19 07:37 05/19/19 10:47 Labs: Abnormal Lab Results - Last 24 Hours (Table) 05/19/19 05/20/19 05/20/19 Range/Units 19:57 07:14 07:37 RBC 3.24 L (3.80-5.40) m/uL Hgb 11.2 L (11.4-16.0) gm/dL MCV 108.1 H (80.0-100.0) fL RDW 15.6 H (11.5-15.5) % Plt Count 74 L (150-450) k/uL Macrocytosis Marked A POC Glucose (mg/dL) 175 H 103 H (75-99) mg/dL 05/20/19 Range/Units 11:35 RBC (3.80-5.40) m/uL Hgb (11.4-16.0) gm/dL MCV (80.0-100.0) fL RDW (11.5-15.5) % Plt Count (150-450) k/uL Macrocytosis POC Glucose (mg/dL) 205 H (75-99) mg/dL Microbiology - Last 24 Hours (Table) 05/17/19 11:00 Urine Culture - Final Urine,Clean Catch Escherichia coli Chest x-ray: report reviewed Assessment and Plan (1) Hepatic encephalopathy Narrative/Plan: 73 year female with a history of hepatocellular carcinoma status post chemoembolization, underlying nonalcoholic liver cirrhosis, portal hypertension and ascites paracentesis, diverticular disease with ileostomy placement, chronic abdominal pain, chronic kidney disease who presents to the hospital presented to the hospital due to confusion and altered mental status. Initially ammonia level was found to be 86 and she was restarted on lactulose and Xifaxan therapy. She had improvement in her ammonia and mentation until yesterday when ammonia was found to be back up to 116 and the nursing staff reported increased confusion. Current Visit: Yes Status: Acute Code(s): K72.90 - HEPATIC FAILURE, UNSPECIFIED WITHOUT COMA SNOMED Code(s): 90037389 (2) Hepatocellular carcinoma Current Visit: Yes Status: Chronic Priority: Medium Code(s): C22.0 - LIVER CELL CARCINOMA SNOMED Code(s): 667577099 (3) Abdominal pain Current Visit: No Status: Acute Priority: High Code(s): R10.9 - UNSPE CIFIED ABDOMINAL PAIN SNOMED Code(s): 10333879 (4) Cirrhosis of liver with ascites Current Visit: No Status: Acute Code(s): K74.60 - UNSPECIFIED CIRRHOSIS OF LIVER; R18.8 - OTHER ASCITES SNOMED Code(s): 41951955 (5) Elevated liver enzymes Current Visit: No Status: Acute Code(s): R74.8 - ABNORMAL LEVELS OF OTHER SERUM ENZYMES SNOMED Code(s): 625912120 Plan: Supportive care Okay for low-sodium diet Continue lactulose 3 times a day and Xifaxan and twice daily, titrated for the patient having 4-5 bowel movements Continue torsemide for diuresis Continue Bentyl for abdominal pain Continue to monitor her symptomatically Continue Protonix Thank you for allowing us to participate in the care of the patient we will continue to follow
[2019-05-21 06:40] LABS: Basophils % (A) 1 %; Eosinophils # (A) 0.3 k/uL (0-0.7); Eosinophils % (A) 6 %; HCT 31.5 % (34.0-46.0); HGB 10.5 gm/dL (11.4-16.0); Lymphocytes % (A) 23 %; MCH 35.2 pg (25.0-35.0); MCHC 33.4 g/dL (31.0-37.0); MCV 105.4 fL (80.0-100.0); Macrocytosis Moderate; Mean Platelet Volume 9.7; Monocytes # (A) 0.4 k/uL (0-1.0); Monocytes % (A) 9 %; Neutrophils # (A) 2.5 k/uL (1.3-7.7); Neutrophils % (A) 56 %; RBC 2.98 m/uL (3.80-5.40); RDW 15.7 % (11.5-15.5); WBC 4.5 k/uL (3.8-10.6)
[2019-05-21 06:50] LABS: Platelet Count 74 k/uL (150-450)
[2019-05-21 06:52] LABS: Albumin 2.1 g/dL (3.5-5.0); Calcium 8.2 mg/dL (8.4-10.2); Potassium 3.9 mmol/L (3.5-5.1); Total Bilirubin 1.6 mg/dL (0.2-1.3); Total Protein 5.1 g/dL (6.3-8.2)
[2019-05-21 07:13] LABS: Glucose,Whole Blood 103 mg/dL (75-99)
[2019-05-21] MEDS: INSULIN REGULAR 100 UNIT/ML VIAL SQ SCH ×3 (08:24→17:46)
[2019-05-21] MEDS: SUCRALFATE 1 GM TAB PO SCH ×4 (09:56→22:29)
[2019-05-21] MEDS: POTASSIUM CHLORIDE ER 20 MEQ TAB.ER PO SCH (09:56)
[2019-05-21] MEDS: FERROUS SULFATE 325 MG TAB PO SCH ×2 (09:56→22:28)
[2019-05-21] MEDS: SODIUM BICARBONATE TAB 650 MG TAB PO SCH ×2 (09:56→22:28)
[2019-05-21] MEDS: RIFAXIMIN 550 MG TABLET PO SCH ×2 (09:56→22:29)
[2019-05-21] MEDS: MORPHINE SULFATE ER 15 MG TABLET PO SCH ×2 (09:56→22:28)
[2019-05-21] MEDS: CIPROFLOXACIN HCL 250 MG TAB PO SCH ×2 (09:56→22:29)
[2019-05-21] MEDS: buPROPion SR 150 MG TABLET.ER PO SCH (09:57)
[2019-05-21] MEDS: DICYCLOMINE 10 MG CAP PO SCH ×3 (09:57→22:27)
[2019-05-21] MEDS: PANTOPRAZOLE 40 MG TABLET PO SCH ×2 (09:57→22:28)
[2019-05-21] MEDS: CHOLECALCIFEROL 1,000 UNIT TAB PO SCH (09:57)
[2019-05-21] MEDS: INSULIN NPH 300 UNIT/3 ML VIAL SQ SCH ×2 (09:58→22:33)
[2019-05-21] MEDS: MAGNESIUM HYDROXIDE 2,400 MG/10 ML CUP PO SCH ×2 (09:58→22:29)
[2019-05-21] MEDS: LACTULOSE 20 GM/30 ML CUP PO SCH ×3 (09:59→22:30)
[2019-05-21] MEDS: ZINC OXIDE 20% OINT 28.4 GM TUBE TOPICAL SCH ×2 (10:04→22:32)
[2019-05-21 11:28] LABS: Glucose,Whole Blood 260 mg/dL (75-99)
[2019-05-21] MEDS ORDERED: FUROSEMIDE 10 MG/ML 2 ML VIAL IV ONE (11:30)
[2019-05-21] MEDS: traMADol 50 MG TAB PO PRN (12:54)
[2019-05-21] MEDS: TORSEMIDE 20 MG TAB PO SCH (12:55)
[2019-05-21] MEDS: SODIUM CHLORIDE 0.9% 1,000 ML IV SCH ×2 (12:56→22:19)
[2019-05-21] MEDS: METOPROLOL TARTRATE 12.5 MG TAB PO SCH ×2 (12:56→22:28)
[2019-05-21] MEDS: IOPAMIDOL-300 CONTRAST 30 ML VIAL (ORAL USE) PO PRN ×2 (14:31→15:41)
--- NOTE | 2019-05-21 14:47 | P.PN ---
Subjective Progress Note Date: 05/21/19 This is a 73-year-old female patient of Dr. Kurtz who presented with altered mental status changes. Patient was noted to have increased confusion and lethargy. Patient has past medical history of liver cancer, diabetes mellitus, GERD, hypertension, liver disease, myocardial infarction, renal disease, anxiety and depression. Patient was recently admitted for hepatic encephalopathy. During that the patient received paracentesis. Patient is maintained on lactulose and Xifaxan. Patient cannot take the xifaxan at home due to cost. Head CT completed showing similar moderate bifrontal atrophy. No acute intracranial abnormality seen. Chest x-ray completed showing chronic interstitial prominence and mild bibasilar atelectasis. No definite focal infiltrate. Ammonia level 86. Patient's home dose of lactulose and Xifaxan reordered. At this time patient is resting in bed. Patient is having some confusion. She denies any chest pain or shortness of breath. Patient denies any recent illness with nausea vomiting or diarrhea. Patient denies any urinary burning or frequency. On 05/16/2019 patient is more awake and alert today. Ammonia level 25. Patient denies chest pain or shortness of breath. Patient denies nausea vomiting or diarrhea. Denies any urinary burning or frequency On 05/17/2019 Patient is alert and oriented x3. family at bedside. Patient family reports that she was started on macrobid for UTI on per her PCP. At this time will order urinary analysis and Urine culture. ammonia level 70. Patient denies chest pain or shortness of breath. Patient denies any nausea or vomitting. patient does report some burning with urination. On 05/18/2019 patient is alert and oriented 3. Ammonia level trending down to 61. Patient is complaining of some chronic abdominal pain. Patient denies any nausea or vomiting. Patient denies any chest pain or shortness of breath On 05/19/2019 patient is alert and oriented 3. Patient having increased confusion per nursing staff. Ammonia level increasing to 116. Patient agrees on lactulose 45 3 times a day and Xifaxan. Patient also started on Cipro for urinary tract infection with gram-negative bacilli. At this time patient denies any chest pain or shortness of breath. Patient is complaining of pain around stoma site which is chronic for patient. Patient denies any urinary burning or frequency. On 05/20/2019 patient was seen and examined on the medical floor she is alert and oriented 3 less confused than yesterday she is complaining of abdominal discomfort otherwise she denies any complaints there is no fever or chills no headache or dizziness no chest pain no shortness of breath no cough no nausea or vomiting she is having a bowel movement almost every hour, she denies any urinary symptoms On 05/21/2019 patient is alert and oriented 3 in no apparent distress she is complaining of abdominal pain and complaining of bilateral lower extremity swelling, there is no fever or chills no headache or dizziness no chest pain no shortness of breath no cough, no nausea or vomiting, patient is having good output from her ileostomy, there is no urinary symptoms Objective - Vital Signs Vital signs: Vital Signs Temp 98.5 F 05/21/19 07:00 Pulse 56 L 05/21/19 09:54 Resp 16 05/21/19 10:00 BP 106/64 05/21/19 09:54 Pulse Ox 99 05/21/19 09:54 Intake & Output 05/20/19 05/21/19 05/21/19 18:59 06:59 18:59 Intake Total 1440 250 340 Output Total 1000 Balance 1440 -750 340 Intake: Oral 1440 250 340 Output: Urine 300 Stool 700 Other: Voiding Method Toilet Toilet # Voids 3 1 3 # Bowel Movements 4 - Exam In general patient is alert Head normocephalic and atraumatic Neck supple no JVD no goiter Lungs clear to auscultation bilaterally no wheezing or crackles Heart regular rate and rhythm S1-S2, no rub or gallop Abdomen is soft, with tenderness in the periumbilical area positive bowel sounds no hepatosplenomegaly. Ostomy in place Extremities 2+ edema bilaterally no cyanosis or clubbing Neuro no gross focal neurological deficit - Labs CBC & Chem 7: 05/21/19 05:57 05/21/19 05:57 Labs: Abnormal Lab Results - Last 24 Hours (Table) 05/21/19 05/21/19 05/21/19 Range/Units 05:57 05:57 05:57 RBC 2.98 L (3.80-5.40) m/uL Hgb 10.5 L (11.4-16.0) gm/dL Hct 31.5 L (34.0-46.0) % MCV 105.4 H (80.0-100.0) fL MCH 35.2 H (25.0-35.0) pg RDW 15.7 H (11.5-15.5) % Plt Count 74 L (150-450) k/uL Sodium 136 L (137-145) mmol/L Chloride 110 H (98-107) mmol/L Creatinine 1.28 H (0.52-1.04) mg/dL POC Glucose (mg/dL) (75-99) mg/dL Calcium 8.2 L (8.4-10.2) mg/dL Total Bilirubin 1.6 H (0.2-1.3) mg/dL AST 52 H (14-36) U/L Alkaline Phosphatase 188 H (38-126) U/L Ammonia 97 H (<30) umol/L Total Protein 5.1 L (6.3-8.2) g/dL Albumin 2.1 L (3.5-5.0) g/dL 05/21/19 05/21/19 Range/Units 07:00 11:25 RBC (3.80-5.40) m/uL Hgb (11.4-16.0) gm/dL Hct (34.0-46.0) % MCV (80.0-100.0) fL MCH (25.0-35.0) pg RDW (11.5-15.5) % Plt Count (150-450) k/uL Sodium (137-145) mmol/L Chloride (98-107) mmol/L Creatinine (0.52-1.04) mg/dL POC Glucose (mg/dL) 103 H 260 H (75-99) mg/dL Calcium (8.4-10.2) mg/dL Total Bilirubin (0.2-1.3) mg/dL AST (14-36) U/L Alkaline Phosphatase (38-126) U/L Ammonia (<30) umol/L Total Protein (6.3-8.2) g/dL Albumin (3.5-5.0) g/dL Assessment and Plan Plan: 1. Altered mental status changes likely due to acute hepatic encephalopathy with elevated ammonia level. Ammonia level improving to 61 Patient remains on lactlous and Xifaxan. 2. History of Nonalcoholic liver cirrhosis 3. History of hepatocellular carcinoma 4. Chronic kidney disease stage III. Currently 1.22 we'll continue to monitor 5. Chronic thrombocytopenia related to liver disease 6. Mild protein calorie malnutrition. glucerna shakes added 7. Hypokalemia. Potassium replacement protocol will continue to monitor 8. Chronic abdominal ascites. Patient's liver cirrhosis. Patient underwent paracentesis on 05/02/2019 9. Stage I pressure ulcer on coccyx present on admission continue zinc oxide. maintaine pressure alleviating positions 10. Diabetes mellitus type 2. Home meds resumed 11. Urinary tract infection. Urine culture growing gram-negative bacilli. Rafi toribio started on Cipro GI prophylaxis Protonix. DVT prophylaxis SCDs due to chronic thrombocytopenia Due to abdominal pain today which is severe will proceed with computed tomography scan of the abdomen and pelvis with oral contrast without IV contrast Case management/social work note patient has been accepted to [facility], possible discharge on Wednesday if patient continues to improve
[2019-05-21] MEDS: ALBUMIN HUMAN 25% 50 ML in EMPTY BAG 1 BAG IVPB SCH ×2 (15:07→16:20)
--- NOTE | 2019-05-21 16:30 | CT ---
EXAMINATION TYPE: CT abdomen pelvis wo con DATE OF EXAM: 05/21/2019 COMPARISON: 05/07/2019 HISTORY: Abdominal pain CT DLP: 950.9 mGycm Automated exposure control for dose reduction was used. TECHNIQUE: Helical acquisition of images was performed from the lung bases through the pelvis. FINDINGS: The lung bases are clear. There is no pleural effusion. There is a large amount of abdominal ascites fluid. There is apparent total colectomy. There is ileostomy with large parastomal hernia. Liver is somewhat irregular consistent with cirrhosis. There are patchy areas of hypodensity in the l iver that could relate to tumor. Spleen is intact. There are varicose veins at the splenic hilum. The re is no evidence of pancreatic mass. There is no adrenal mass. Kidneys have normal size. There is no hydronephrosis. Ureters are not dilat ed. Bladder distends smoothly. Small bowel is mildly dilated up to 3.6 cm but the oral contrast reach es the ileostomy. There is no evidence of free air. I see no bony destructive process. There is spinal stenosis related to posterior calcified disc herniation at L1-2 and L2-3 and L3-4. There is very severe spinal stenos is at L3-4. There is mild anterior subluxation of L3 in relation to L4. IMPRESSION: MODERATE ASCITES. THERE ARE SPLENIC VARICES CONSISTENT WITH PORTAL VENOUS HYPERTENSION. LIVER CHANGES CONSISTENT WITH CIRRHOSIS. HYPODENSE AREAS IN THE LIVER UNCHANGED. MILDLY DILATED SMALL BOWEL SIMILAR TO OLD EXAM AND CONSISTENT WITH PARTIAL OBSTRUCTION. INCARCERATED PARASTOMAL HERNIA. NO DEFINITE NO SIGNIFICANT CHANGE COMPARED TO OLD EXAM. Severe L3-4 bony spinal stenosis.
[2019-05-21 16:40] LABS: Glucose,Whole Blood 229 mg/dL (75-99)
[2019-05-21 21:20] LABS: Glucose,Whole Blood 149 mg/dL (75-99)
--- NOTE | 2019-05-21 21:50 | P.PN ---
Subjective Progress Note Date: 05/21/19 Principal diagnosis: Decompensated cirrhosis with ascites and hepatic encephalopathy Patient denying any confusion at this time. She continues to tolerate diet. Still reporting chronic abdominal pain. Nonbloody output per ostomy. Objective - Vital Signs Vital signs: Vital Signs Temp 98.5 F 05/21/19 07:00 Pulse 55 L 05/21/19 07:00 Resp 16 05/21/19 07:00 BP 92/52 05/21/19 07:00 Pulse Ox 100 05/21/19 07:00 Intake & Output 05/20/19 05/21/19 05/21/19 18:59 06:59 18:59 Intake Total 1440 250 118 Output Total 1000 Balance 1440 -750 118 Intake: Oral 1440 250 118 Output: Urine 300 Stool 700 Other: Voiding Method Toilet # Voids 3 1 # Bowel Movements 4 - Exam On physical examination, patient appears comfortable in no apparent distress. HEAD: Normocephalic, atraumatic. EYES: No scleral icterus. No conjunctival injection. MOUTH: No lesions, tongue midline. NECK: Trachea midline, no gross abnormalities. CHEST: decreased air entry bilaterally. HEART: s1-S2 appreciated. ABDOMEN: Soft, obese, with right abdominal ostomy intact with nonbloody output. Bowel sounds are positive. No organomegaly. No guarding or rigidity. EXTREMITIES: bilateral 2+ pedal edema. SKIN: No rashes, no jaundice. NEUROLOGIC: Alert and oriented x3. No focal deficits. - Labs CBC & Chem 7: 05/21/19 05:57 05/21/19 05:57 Labs: Abnormal Lab Results - Last 24 Hours (Table) 05/20/19 05/21/19 05/21/19 Range/Units 11:35 05:57 05:57 RBC 2.98 L (3.80-5.40) m/uL Hgb 10.5 L (11.4-16.0) gm/dL Hct 31.5 L (34.0-46.0) % MCV 105.4 H (80.0-100.0) fL MCH 35.2 H (25.0-35.0) pg RDW 15.7 H (11.5-15.5) % Plt Count 74 L (150-450) k/uL Sodium 136 L (137-145) mmol/L Chloride 110 H (98-107) mmol/L Creatinine 1.28 H (0.52-1.04) mg/dL POC Glucose (mg/dL) 205 H (75-99) mg/dL Calcium 8.2 L (8.4-10.2) mg/dL Total Bilirubin 1.6 H (0.2-1.3) mg/dL AST 52 H (14-36) U/L Alkaline Phosphatase 188 H (38-126) U/L Ammonia (<30) umol/L Total Protein 5.1 L (6.3-8.2) g/dL Albumin 2.1 L (3.5-5.0) g/dL 05/21/19 05/21/19 Range/Units 05:57 07:00 RBC (3.80-5.40) m/uL Hgb (11.4-16.0) gm/dL Hct (34.0-46.0) % MCV (80.0-100.0) fL MCH (25.0-35.0) pg RDW (11.5-15.5) % Plt Count (150-450) k/uL Sodium (137-145) mmol/L Chloride (98-107) mmol/L Creatinine (0.52-1.04) mg/dL POC Glucose (mg/dL) 103 H (75-99) mg/dL Calcium (8.4-10.2) mg/dL Total Bilirubin (0.2-1.3) mg/dL AST (14-36) U/L Alkaline Phosphatase (38-126) U/L Ammonia 97 H (<30) umol/L Total Protein (6.3-8.2) g/dL Albumin (3.5-5.0) g/dL Assessment and Plan (1) Hepatic encephalopathy Narrative/Plan: 73 year female with a history of hepatocellular carcinoma status post chemoembolization, underlying nonalcoholic liver cirrhosis, portal hypertension and ascites paracentesis, diverticular disease with ileostomy placement, chronic abdominal pain, chronic kidney disease who presents to the hospital presented to the hospital due to confusion and altered mental status. Initially ammonia level was found to be 86 and she was restarted on lactulose and Xifaxan therapy. She had improvement in her ammonia and mentation until yesterday when ammonia was found to be back up to 116 and the nursing staff reported increased confusion. Current Visit: Yes Status: Acute Code(s): K72.90 - HEPATIC FAILURE, UNSPECIFIED WITHOUT COMA SNOMED Code(s): 12776879 (2) Hepatocellular carcinoma Current Visit: Yes Status: Chronic Priority: Medium Code(s): C22.0 - LIVER CELL CARCINOMA SNOMED Code(s): 036064681 (3) Abdominal pain Current Visit: No Status: Acute Priority: High Code(s): R10.9 - UNSPECIFIED ABDOMINAL PAIN SNOMED Code(s): 38792067 (4) Cirrhosis of liver with ascites Current Visit: No Status: Acute Code(s): K74.60 - UNSPECIFIED CIRRHOSIS OF LIVER; R18.8 - OTHER ASCITES SNOMED Code(s): 96326072 (5) Elevated liver enzymes Current Visit: No Status: Acute Code(s): R74.8 - ABNORMAL LEVELS OF OTHER SERUM ENZYMES SNOMED Code(s): 061007899 Plan: Supportive care Okay for low-sodium diet Continue lactulose 3 times a day and Xifaxan and twice daily, titrated for the patient having 4-5 bowel movements Continue torsemide for diuresis, can consider adding Aldactone back for increased diuresis in the setting of current fluid overload Abdominal paracentesis will be ordered Continue Bentyl for abdominal pain Continue to monitor her symptomatically Continue Protonix Thank you for allowing us to participate in the care of the patient we will continue to follow
[2019-05-22 07:47] LABS: Glucose,Whole Blood 101 mg/dL (75-99)
[2019-05-22 08:08] VITALS: TEMP 98
[2019-05-22] MEDS: MORPHINE SULFATE ER 15 MG TABLET PO SCH (08:15)
[2019-05-22] MEDS: PANTOPRAZOLE 40 MG TABLET PO SCH (08:15)
[2019-05-22] MEDS: SUCRALFATE 1 GM TAB PO SCH ×2 (08:15→12:31)
[2019-05-22] MEDS: FERROUS SULFATE 325 MG TAB PO SCH (08:15)
[2019-05-22] MEDS: CIPROFLOXACIN HCL 250 MG TAB PO SCH (08:16)
[2019-05-22] MEDS: POTASSIUM CHLORIDE ER 20 MEQ TAB.ER PO SCH ×4 (08:17→13:44)
[2019-05-22] MEDS: METOPROLOL TARTRATE 12.5 MG TAB PO SCH (08:17)
[2019-05-22] MEDS: DICYCLOMINE 10 MG CAP PO SCH (08:17)
[2019-05-22] MEDS: SODIUM BICARBONATE TAB 650 MG TAB PO SCH (08:17)
[2019-05-22] MEDS: CHOLECALCIFEROL 1,000 UNIT TAB PO SCH (08:17)
[2019-05-22] MEDS: MAGNESIUM HYDROXIDE 2,400 MG/10 ML CUP PO SCH (08:18)
[2019-05-22] MEDS: LACTULOSE 20 GM/30 ML CUP PO SCH (08:19)
[2019-05-22] MEDS: buPROPion SR 150 MG TABLET.ER PO SCH (08:23)
[2019-05-22] MEDS: RIFAXIMIN 550 MG TABLET PO SCH (08:23)
[2019-05-22] MEDS: INSULIN REGULAR 100 UNIT/ML VIAL SQ SCH ×2 (08:23→12:32)
[2019-05-22] MEDS: INSULIN NPH 300 UNIT/3 ML VIAL SQ SCH (08:24)
[2019-05-22] MEDS: ZINC OXIDE 20% OINT 28.4 GM TUBE TOPICAL SCH (08:25)
--- NOTE | 2019-05-22 09:32 | US ---
EXAMINATION TYPE: US abdomen limited DATE OF EXAM: 05/22/2019 COMPARISON: CT 05/21/2019 CLINICAL HISTORY: 73-year-old female ascites. TECHNIQUE: Multiple sonographic images of the 4 abdominal quadrants for assessment of ascites fluid. FINDINGS: Record Keeper notes: Ascites noted in abdomen. Left > Right. IMPRESSION: Moderate abdominal ascites, left greater than right.
[2019-05-22 09:44] LABS: Basophils % (A) 0 %; Eosinophils # (A) 0.2 k/uL (0-0.7); Eosinophils % (A) 4 %; HCT 33.2 % (34.0-46.0); HGB 10.7 gm/dL (11.4-16.0); Lymphocytes # (A) 0.8 k/uL (1.0-4.8); Lymphocytes % (A) 20 %; MCHC 32.1 g/dL (31.0-37.0); MCV 105.9 fL (80.0-100.0); Macrocytosis Moderate; Mean Platelet Volume 9.8; Monocytes # (A) 0.3 k/uL (0-1.0); Monocytes % (A) 7 %; Neutrophils # (A) 2.6 k/uL (1.3-7.7); Neutrophils % (A) 65 %; RBC 3.13 m/uL (3.80-5.40); RDW 15.6 % (11.5-15.5)
[2019-05-22 09:51] LABS: Platelet Count 73 k/uL (150-450)
[2019-05-22 09:52] LABS: INR 1.5 (<1.2)
[2019-05-22 10:02] LABS: Albumin 2.5 g/dL (3.5-5.0); Calcium 8.2 mg/dL (8.4-10.2); Potassium 3.3 mmol/L (3.5-5.1); Total Bilirubin 1.8 mg/dL (0.2-1.3); Total Protein 5.6 g/dL (6.3-8.2)
[2019-05-22 10:34] LABS: Hemoglobin A1C 5.9 % (4.0-6.0)
[2019-05-22] MEDS: SODIUM CHLORIDE 0.9% 1,000 ML IV SCH (11:07)
[2019-05-22 11:22] VITALS: RESP 18
--- NOTE | 2019-05-22 11:23 | P.PN ---
Progress Note - Text Progress Note Date: 05/22/19 Patient floor for paracentesis will reevaluate.
[2019-05-22 12:11] VITALS: BP 117/60; PULSE 54
[2019-05-22 12:24] LABS: Glucose,Whole Blood 134 mg/dL (75-99)
--- NOTE | 2019-05-22 13:04 | US ---
Therapeutic paracentesis. DATE OF EXAM: 05/22/2019 CLINICAL HISTORY: Ascites The procedure was discussed with the patient. The risks, complications, benefits, and alternatives we re discussed and any questions were answered. Informed consent was obtained. The patient was placed s upine on the ultrasound table and prepped and draped in the usual sterile fashion. All elements of maximal barrier technique were utilized. Under ultrasound guidance, access into the left lower quadrant was obtained, via the paracentesis catheter system and direct ultrasound guidance . Approximately 1.9 liters of straw-colored fluid was removed. The patient was stable throughout the pr ocedure and remained stable upon discharge from Department of Radiology. IMPRESSION: Successful therapeutic paracentesis under ultrasound guidance.
[2019-05-22] MEDS ORDERED: Potassium Replacement Protocol 1 EACH MISC MISCELLANE PRN (13:06)
[2019-05-22] MEDS ORDERED: POTASSIUM CHLORIDE ER 20 MEQ TAB.ER PO SCH (14:00)
--- NOTE | 2019-05-22 14:24 | P.DS ---
Providers Date of admission: 05/14/19 17:53 Expected date of discharge: 05/22/19 Attending physician: Artemio Lea Consults: 05/19/19 14:01 Consult Physician Routine Consulting Provider: Ananth Francois Consult Reason/Comments: elevated ammonia Do you want consulting provider notified?: Yes Primary care physician: Gilma Martinez [place] [facility] Course: Discharge diagnosis 1. Altered mental status changes likely due to acute hepatic encephalopathy with elevated ammonia level. Ammonia level improving to 61 Patient remains on lactlous and Xifaxan. Ammonia level improving to 27 2. History of Nonalcoholic liver cirrhosis 3. History of hepatocellular carcinoma 4. Chronic kidney disease stage III. Currently 1.22 we'll continue to monitor 5. Chronic thrombocytopenia related to liver disease 6. Mild protein calorie malnutrition. glucerna shakes added 7. Hypokalemia. Potassium replacement protocol will continue to monitor 8. Chronic abdominal ascites. Patient's liver cirrhosis. Patient underwent paracentesis on 05/02/2019 9. Stage I pressure ulcer on coccyx present on admission continue zinc oxide. maintaine pressure alleviating positions 10. Diabetes mellitus type 2. Home meds resumed 11. Urinary tract infection. Urine culture growing gram-negative bacilli. Patient discharged on Macrobid due to possible resistance to Cipro Hospital course This is a 73-year-old female patient of Dr. Kurtz who presented with altered mental status changes. Patient was noted to have increased confusion and lethargy. Patient has past medical history of liver cancer, diabetes mellitus, GERD, hypertension, liver disease, myocardial infarction, renal disease, anxiety and depression. Patient was recently admitted for hepatic encephalopathy. During that the patient received paracentesis. Patient is maintained on lactulose and Xifaxan. Patient cannot take the xifaxan at home due to cost. Head CT completed showing similar moderate bifrontal atrophy. No acute intracranial abnormality seen. Chest x-ray completed showing chronic interstitial prominence and mild bibasilar atelectasis. No definite focal infiltrate. Ammonia level 86. Patient's home dose of lactulose and Xifaxan reordered. At this time patient is resting in bed. Patient is having some confusion. She denies any chest pain or shortness of breath. Patient denies any recent illness with nausea vomiting or diarrhea. Patient denies any urinary burning or frequency. On 05/16/2019 patient is more awake and alert today. Ammonia level 25. Patient denies chest pain or shortness of breath. Patient denies nausea vomiting or diarrhea. Denies any urinary burning or frequency On 05/17/2019 Patient is alert and oriented x3. family at bedside. Patient family reports that she was started on macrobid for UTI on per her PCP. At this time will order urinary analysis and Urine culture. ammonia level 70. Patient denies chest pain or shortness of breath. Patient denies any nausea or vomitting. patient does report some burning with urination. On 05/18/2019 patient is alert and oriented 3. Ammonia level trending down to 61. Patient is complaining of some chronic abdominal pain. Patient denies any nausea or vomiting. Patient denies any chest pain or shortness of breath On 05/19/2019 patient is alert and oriented 3. Patient having increased confusion per nursing staff. Ammonia level increasing to 116. Patient agrees on lactulose 45 3 times a day and Xifaxan. Patient also started on Cipro for ur inary tract infection with gram-negative bacilli. At this time patient denies any chest pain or shortness of breath. Patient is complaining of pain around stoma site which is chronic for patient. Patient denies any urinary burning or frequency. On 05/20/2019 patient was seen and examined on the medical floor she is alert and oriented 3 less confused than yesterday she is complaining of abdominal discomfort otherwise she denies any complaints there is no fever or chills no headache or dizziness no chest pain no shortness of breath no cough no nausea or vomiting she is having a bowel movement almost every hour, she denies any urinary symptoms On 05/21/2019 patient is alert and oriented 3 in no apparent distress she is complaining of abdominal pain and complaining of bilateral lower extremity swelling, there is no fever or chills no headache or dizziness no chest pain no shortness of breath no cough, no nausea or vomiting, patient is having good output from her ileostomy, there is no urinary symptoms On 05/22/2019 patient alert and oriented 3. Patient feels ready to be DC'd home. Patient underwent paracentesis with 1.9 L of fluid removed. Ammonia level improving to 27. Patient denies chest pain or shortness of breath. Patient denies nausea vomiting or diarrhea. Patient denies any urinary burning or frequency. Patient to follow with Dr. Lea as PCP. Patient DC'd on Macrobid for urinary tract infection resistant to Cipro I performed an examination of the patient and discussed their management with the Nurse Practitioner. I have reviewed the Nurse Practitioner's notes and agree with the documented findings and plan of care Patient Condition at Discharge: Stable Plan - Discharge Summary Discharge Rx Participant: No New Discharge Prescriptions: New Nitrofurantoin Monohyd/M-Cryst [Macrobid] 100 mg PO BID 7 Days #14 cap Continue Sucralfate [Carafate] 1 gm PO QID Omeprazole [PriLOSEC] 20 mg PO BID Insulin Regular, Human [NovoLIN R] 10 unit SQ AC-TID buPROPion SR [Wellbutrin SR] 150 mg PO DAILY #30 tablet.er Cholecalciferol [Vitamin D3 (25 Mcg = 1000 Iu)] 4,000 unit PO DAILY Ferrous Sulfate [Iron (65 MG Elemental)] 325 mg PO BID Insulin NPH [humuLIN N] 18 unit SQ BID vial Dicyclomine [Bentyl] 20 mg PO TID 30 Days #180 cap Lactulose [Cephulac] 45 gm PO TID Sodium Bicarbonate Tab 1,300 mg PO BID tab Rifaximin [Xifaxan] 550 mg PO BID tablet Torsemide [Demadex] 20 mg PO Q48H 30 Days #30 tab Potassium Chloride [Klor-Con 20] 20 meq PO DAILY Metoprolol Tartrate [Lopressor] 12.5 mg PO BID Zinc Oxide 20% Oint 1 applic TOPICAL BID #1 tube Magnesium Oxide [William] 500 mg PO BID #6 tablet Morphine Sulfate [Ms Contin] 15 mg PO BID Discharge Medication List Omeprazole [PriLOSEC] 20 mg PO BID 10/23/18 [History] Sucralfate [Carafate] 1 gm PO QID 10/23/18 [History] Insulin Regular, Human [NovoLIN R] 10 unit SQ AC-TID 10/24/18 [History] buPROPion SR [Wellbutrin SR] 150 mg PO DAILY #30 tablet.er 12/21/18 [Rx] Cholecalciferol [Vitamin D3 (25 Mcg = 1000 Iu)] 4,000 unit PO DAILY 01/16/19 [History] Ferrous Sulfate [Iron (65 MG Elemental)] 325 mg PO BID 01/31/19 [History] Insulin NPH [humuLIN N] 18 unit SQ BID vial 02/06/19 [Rx] Dicyclomine [Bentyl] 20 mg PO TID 30 Days #180 cap 03/31/19 [Rx] Lactulose [Cephulac] 45 gm PO TID 04/07/19 [History] Rifaximin [Xifaxan] 550 mg PO BID tablet 04/17/19 [Rx] Sodium Bicarbonate Tab 1,300 mg PO BID tab 04/17/19 [Rx] Torsemide [Demadex] 20 mg PO Q48H 30 Days #30 tab 04/17/19 [Rx] Potassium Chloride [Klor-Con 20] 20 meq PO DAILY 04/21/19 [History] Metoprolol Tartrate [Lopressor] 12.5 mg PO BID 04/30/19 [History] Magnesium Oxide [William] 500 mg PO BID #6 tablet 05/05/19 [Rx] Zinc Oxide 20% Oint 1 applic TOPICAL BID #1 tube 05/05/19 [Rx] Morphine Sulfate [Ms Contin] 15 mg PO BID 05/15/19 [History] Nitrofurantoin Monohyd/M-Cryst [Macrobid] 100 mg PO BID 7 Days #14 cap 05/22/19 [Rx] Follow up Appointment(s)/Referral(s): [facility], [NON-STAFF] - As Needed Artemio Lea MD [STAFF PHYSICIAN] - 1-2 Days Activity/Diet/Wound Care/Special Instructions: Activity as tolerated Diet heart healthy Discharge Disposition: HOME WITH HOME HEALTH SERVICES
[2019-05-22] MEDS ORDERED: NITROFURANTOIN MONOHYD/M-CRYST 100 MG CAP PO SCH (21:00)
== END 2019-05-22 15:34 | disposition home health service (06) | DRG 442 ==
LOC: EC 14:31 → 4SSUR 17:53
PROVIDERS: ADMIT Internal Medicine; ATTEND Internal Medicine
PROC: 0W9G3ZZ Drainage of Peritoneal Cavity, Percutaneous Approach (ICD-10-PCS; principal; 2019-05-22)
DX: K72.00 Acute and subacute hepatic failure without coma (principal); J98.11 Atelectasis; K76.6 Portal hypertension; N39.0 Urinary tract infection, site not specified; R18.8 Other ascites; E44.1 Mild protein-calorie malnutrition; F05 Delirium due to known physiological condition; K74.69 Other cirrhosis of liver; I12.9 Hypertensive chronic kidney disease with stage 1 through stage 4 chronic kidney disease, or unspecified chronic kidney disease; I25.2 Old myocardial infarction; K21.9 Gastro-esophageal reflux disease without esophagitis; L89.151 Pressure ulcer of sacral region, stage 1; N18.3 Chronic kidney disease, stage 3 (moderate); Z16.23 Resistance to quinolones and fluoroquinolones; G89.29 Other chronic pain; Z85.05 Personal history of malignant neoplasm of liver; D69.59 Other secondary thrombocytopenia; E11.22 Type 2 diabetes mellitus with diabetic chronic kidney disease; E87.6 Hypokalemia; F32.9 Major depressive disorder, single episode, unspecified; F41.9 Anxiety disorder, unspecified; Z79.4 Long term (current) use of insulin; Z79.899 Other long term (current) drug therapy; Z82.49 Family history of ischemic heart disease and other diseases of the circulatory system; Z87.11 Personal history of peptic ulcer disease; Z87.891 Personal history of nicotine dependence; Z90.710 Acquired absence of both cervix and uterus; Z90.49 Acquired absence of other specified parts of digestive tract; Z88.5 Allergy status to narcotic agent; Z88.0 Allergy status to penicillin; Z88.8 Allergy status to other drugs, medicaments and biological substances; Z92.21 Personal history of antineoplastic chemotherapy; B96.20 Unspecified Escherichia coli [E. coli] as the cause of diseases classified elsewhere; T85.848S Pain due to other internal prosthetic devices, implants and grafts, sequela; D50.9 Iron deficiency anemia, unspecified
CPT/HCPCS: 36415; 49083; 70450; 71046; 74176; 76705; 80053; 80306; 81001; 82140; 82150; 83036; 83690; 83735; 84132; 85025; 85610; 85730; 87077; 87086; 87186; 93005; 96361; 96365; 99285

== ENCOUNTER 2019-05-24 12:19 | Inpatient (IN) | payer MEDICARE ==
[2019-05-24] MEDS ORDERED: MORPHINE SULFATE 4 MG/ML SYRINGE IV STA (12:53)
[2019-05-24] MEDS ORDERED: PANTOPRAZOLE 40 MG/10 ML VIAL IVP STA (12:53)
[2019-05-24] MEDS ORDERED: SODIUM CHLORIDE 0.9% 1,000 ML IV STA (12:53)
--- NOTE | 2019-05-24 12:59 | ED ---
General Adult HPI - General Chief complaint: Nausea/Vomiting/Diarrhea Stated complaint: Nausea and vomiting Time Seen by Provider: 05/24/19 12:38 Source: patient, EMS, RN notes reviewed Mode of arrival: EMS Limitations: no limitations - History of Present Illness Initial comments: Patient is a pleasant 73-year-old female presenting to the emergency department with nausea and vomiting. Onset of symptoms was this morning. Patient vomited several times as well as dry heaves several times. Patient also complains of abdominal discomfort. Patient states abdominal discomfort is chronic for her and usually gets it once a month. No constipation or diarrhea. Patient denies fevers. Patient denies any confusion. Patient states her symptoms are related to her cirrhosis. Patient states she also has liver cancer however is not currently on any treatment for this. - Related Data Home Medications Medication Instructions Recorded Confirmed Omeprazole [PriLOSEC] 20 mg PO BID 10/23/18 05/24/19 Sucralfate [Carafate] 1 gm PO QID 10/23/18 05/24/19 Insulin Regular, Human [NovoLIN R] 10 unit SQ AC-TID 10/24/18 05/24/19 Cholecalciferol [Vitamin D3 (25 4,000 unit PO DAILY 01/16/19 05/24/19 Mcg = 1000 Iu)] Ferrous Sulfate [Iron (65 MG 325 mg PO BID 01/31/19 05/24/19 Elemental)] Lactulose [Cephulac] 45 gm PO TID 04/07/19 05/24/19 Potassium Chloride [Klor-Con 20] 20 meq PO DAILY 04/21/19 05/24/19 Metoprolol Tartrate [Lopressor] 12.5 mg PO BID 04/30/19 05/24/19 Morphine Sulfate [Ms Contin] 15 mg PO BID 05/15/19 05/24/19 Previous Rx's Medication Instructions Recorded buPROPion SR [Wellbutrin SR] 150 mg PO DAILY #30 tablet.er 12/21/18 Insulin NPH [humuLIN N] 18 unit SQ BID vial 02/06/19 Dicyclomine [Bentyl] 20 mg PO TID 30 Days #180 cap 03/31/19 Rifaximin [Xifaxan] 550 mg PO BID tablet 04/17/19 Sodium Bicarbonate Tab 1,300 mg PO BID tab 04/17/19 Torsemide [Demadex] 20 mg PO Q48H 30 Days #30 tab 04/17/19 Magnesium Oxide [William] 500 mg PO BID #6 tablet 05/05/19 Zinc Oxide 20% Oint 1 applic TOPICAL BID #1 tube 05/05/19 Nitrofurantoin Monohyd/M-Cryst 100 mg PO BID 7 Days #14 cap 05/22/19 [Macrobid] Allergies Allergy/AdvReac Type Severity Reaction Status Date / Time amlodipine Allergy Rash/Hives Verified 05/24/19 12:43 oxycodone Allergy Rash/Hives Verified 05/24/19 12:43 Penicillins Allergy Rash/Hives Verified 05/24/19 12:43 hydromorphone [From Dilaudid] AdvReac Mild tactile Verified 05/24/19 12:43 disturbance GREG Inhibitors AdvReac Cough Verified 05/24/19 12:43 sodium dodecyclbenzene Allergy Rash/Hives Uncoded 05/24/19 12:29 sulfonate Review of Systems ROS Statement: Those systems with pertinent positive or pertinent negative responses have been documented in the HPI. ROS Other: All systems not noted in ROS Statement are negative. Constitutional: Denies: fever Eyes: Denies: eye pain ENT: Denies: ear pain Respiratory: Denies: cough Cardiovascular: Denies: chest pain Endocrine: Reports: fatigue Gastrointestinal: Reports: abdominal pain, nausea, vomiting Genitourinary: Denies: dysuria Musculoskeletal: Denies: back pain Skin: Denies: rash Neurological: Denies: confusion Past Medical History Past Medical History: Cancer, Diabetes Mellitus, GERD/Reflux, Hypertension, Liver Disease, Myocardial Infarction ([place]), Renal Disease Additional Past Medical History / Comment(s): Hepatocellular liver cancer with chemo immobilization-last time being 2017, ascities with paracentesis's , nonalcoholic liver cirrhosis, chronic pancytopenia, chronic elevated ammonia levels, hepatic encephalopathy, chronic elevated LFTs, chronic abdominal pain, stomach ulcer, diverticular disease with ileostomy, IDDM type II, iron anemia, CKD stage III, nonsustained vtach, UTI, high ammonia levels Last Myocardial Infarction Date:: unk History of Any Multi-Drug Resistant Organisms: MRSA, VRE Date of last positivie culture/infection: 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 Past Anesthesia/Blood Transfusion Reactions: No Reported Reaction Past Psychological History: Anxiety, Depression Smoking Status: Never smoker Past Alcohol Use History: None Reported Past Drug Use History: None Reported - Past Family History Mother History Unknown: Yes Family Medical History: Congestive Heart Failure (CHF) Additional Family Medical History / Comment(s): Mother is 94 yrs old. Father Family Medical History: Chest Pain / Angina Additional Family Medical History / Comment(s): Father is . General Exam Limitations: no limitations General appearance: alert, in no apparent distress Head exam: Present: atraumatic Eye exam: Present: normal appearance, PERRL. Absent: scleral icterus ENT exam: Present: normal oropharynx Neck exam: Present: normal inspection Respiratory exam: Present: normal lung sounds bilaterally Cardiovascular Exam: Present: regular rate, normal rhythm Expanded Peripheral pulses: 2+: Dorsalis Pedis (R), Dorsalis Pedis (L) GI/Abdominal exam: Present: soft, tenderness (Mild diffuse tenderness). Absent: guarding, rebound, rigid Extremities exam: Present: normal inspection. Absent: calf tenderness Neurological exam: Present: alert Psychiatric exam: Present: normal affect, normal mood Skin exam: Present: normal color Course Vital Signs 05/24/19 05/24/19 12:21 15:00 Temperature 98.6 F Pulse Rate 51 L Respiratory 16 16 Rate Blood Pressure 117/44 O2 Sat by Pulse 100 Oximetry Medical Decision Making - Medical Decision Making Patient reevaluated and feels slightly better. Patient still states she does not feel like rate. Case discussed in detail with Dr. lea who is familiar with this patient. He will admit his patienti)".2ne'. he is aware of patient's previous history. Patient has had multiple previous - Lab Data Result diagrams: 05/24/19 12:55 05/24/19 12:55 Lab Results 05/24/19 05/24/19 05/24/19 Range/Units 12:55 12:55 12:55 WBC 5.0 (3.8-10.6) k/uL RBC 3.75 L (3.80-5.40) m/uL Hgb 13.2 (11.4-16.0) gm/dL Hct 38.9 (34.0-46.0) % MCV 104.0 H (80.0-100.0) fL MCH 35.2 H (25.0-35.0) pg MCHC 33.8 (31.0-37.0) g/dL RDW 15.0 (11.5-15.5) % Plt Count 71 L (150-450) k/uL Neutrophils % 77 % Lymphocytes % 14 % Monocytes % 5 % Eosinophils % 2 % Basophils % 1 % Neutrophils # 3.9 (1.3-7.7) k/uL Lymphocytes # 0.7 L (1.0-4.8) k/uL Monocytes # 0.2 (0-1.0) k/uL Eosinophils # 0.1 (0-0.7) k/uL Basophils # 0.0 (0-0.2) k/uL Poikilocytosis Slight Macrocytosis Moderate PT 14.7 H (9.0-12.0) sec INR 1.5 H (<1.2) APTT 25.4 (22.0-30.0) sec Sodium 141 (137-145) mmol/L Potassium 2.6 L* (3.5-5.1) mmol/L Chloride 104 (98-107) mmol/L Carbon Dioxide 29 (22-30) mmol/L Anion Gap 8 mmol/L BUN 15 (7-17) mg/dL Creatinine 1.07 H (0.52-1.04) mg/dL Est GFR (CKD-EPI)AfAm 61 (>60 ml/min/1.73 sqM) Est GFR (CKD-EPI)NonAf 53 (>60 ml/min/1.73 sqM) Glucose 136 H (74-99) mg/dL Calcium 7.9 L (8.4-10.2) mg/dL Total Bilirubin 2.6 H (0.2-1.3) mg/dL AST 65 H (14-36) U/L ALT 38 (9-52) U/L Alkaline Phosphatase 262 H (38-126) U/L Total Protein 6.5 (6.3-8.2) g/dL Albumin 3.0 L (3.5-5.0) g/dL Amylase 55 (30-110) U/L Lipase 16 L (23-300) U/L Urine Color Urine Appearance (Clear) Urine pH (5.0-8.0) Ur Specific [place] (1.001-1.035) Urine Protein (Negative) Urine Glucose (UA) (Negative) Urine Ketones (Negative) Urine Blood (Negative) Urine Nitrite (Negative) Urine Bilirubin (Negative) Urine Urobilinogen (<2.0) mg/dL Ur Leukocyte Esterase (Negative) 05/24/19 Range/Units 14:55 WBC (3.8-10.6) k/uL RBC (3.80-5.40) m/uL Hgb (11.4-16.0) gm/dL Hct (34.0-46.0) % MCV (80.0-100.0) fL MCH (25.0-35.0) pg MCHC (31.0-37.0) g/dL RDW (11.5-15.5) % Plt Count (150-450) k/uL Neutrophils % % Lymphocytes % % Monocytes % % Eosinophils % % Basophils % % Neutrophils # (1.3-7.7) k/uL Lymphocytes # (1.0-4.8) k/uL Monocytes # (0-1.0) k/uL Eosinophils # (0-0.7) k/uL Basophils # (0-0.2) k/uL Poikilocytosis Macrocytosis PT (9.0-12.0) sec INR (<1.2) APTT (22.0-30.0) sec Sodium (137-145) mmol/L Potassium (3.5-5.1) mmol/L Chloride (98-107) mmol/L Carbon Dioxide (22-30) mmol/L Anion Gap mmol/L BUN (7-17) mg/dL Creatinine (0.52-1.04) mg/dL Est GFR (CKD-EPI)AfAm (>60 ml/min/1.73 sqM) Est GFR (CKD-EPI)NonAf (>60 ml/min/1.73 sqM) Glucose (74-99) mg/dL Calcium (8.4-10.2) mg/dL Total Bilirubin (0.2-1.3) mg/dL AST (14-36) U/L ALT (9-52) U/L Alkaline Phosphatase (38-126) U/L Total Protein (6.3-8.2) g/dL Albumin (3.5-5.0) g/dL Amylase (30-110) U/L Lipase (23-300) U/L Urine Color Yellow Urine Appearance Clear (Clear) Urine pH 5.5 (5.0-8.0) Ur Specific [place] 1.011 (1.001-1.035) Urine Protein Negative (Negative) Urine Glucose (UA) Negative (Negative) Urine Ketones Negative (Negative) Urine Blood Negative (Negative) Urine Nitrite Negative (Negative) Urine Bilirubin Negative (Negative) Urine Urobilinogen <2.0 (<2.0) mg/dL Ur Leukocyte Esterase Negative (Negative) - Radiology Data Radiology results: image reviewed (Abdominal x-ray shows nonspecific abdomen. Possible ileus, enteritis or partial obstruction considered. Left basilar atelectasis favored over infiltrate.) Disposition Clinical Impression: Nausea and vomiting, Abdominal pain Disposition: ADMITTED IP TO THIS HOSP Is patient prescribed a controlled substance at d/c from ED?: No Referrals: Artemio Lae MD [Primary Care Provider] - 1-2 days Decision Time: 16:06
[2019-05-24 13:07] LABS: Basophils % (A) 1 %; Eosinophils # (A) 0.1 k/uL (0-0.7); Eosinophils % (A) 2 %; HCT 38.9 % (34.0-46.0); HGB 13.2 gm/dL (11.4-16.0); Lymphocytes # (A) 0.7 k/uL (1.0-4.8); Lymphocytes % (A) 14 %; MCH 35.2 pg (25.0-35.0); MCHC 33.8 g/dL (31.0-37.0); Macrocytosis Moderate; Mean Platelet Volume 8.7; Monocytes # (A) 0.2 k/uL (0-1.0); Monocytes % (A) 5 %; Neutrophils # (A) 3.9 k/uL (1.3-7.7); Neutrophils % (A) 77 %; Poikilocytosis Slight; RBC 3.75 m/uL (3.80-5.40)
[2019-05-24 13:12] LABS: Platelet Count 71 k/uL (150-450)
[2019-05-24 13:18] LABS: INR 1.5 (<1.2); Partial Thromboplastin Time 25.4 sec (22.0-30.0); Prothrombin Time 14.7 sec (9.0-12.0)
[2019-05-24 13:22] LABS: Calcium 7.9 mg/dL (8.4-10.2); Total Bilirubin 2.6 mg/dL (0.2-1.3); Total Protein 6.5 g/dL (6.3-8.2)
[2019-05-24 13:26] LABS: Potassium 2.6 mmol/L (3.5-5.1)
--- NOTE | 2019-05-24 13:37 | XR ---
EXAMINATION TYPE: XR KUB DATE OF EXAM: 05/24/2019 COMPARISON: 05/07/2019 HISTORY: Pain TECHNIQUE: One view abdominal series FINDINGS: Hypertrophic and degenerative change of the spine. Arthropathy of the hips. Correlate for femoral bibi tabular impingement.. The bowel gas pattern is nonspecific single prominent bowel loop in the left a bdomen noted. Calcifications in the pelvis and left upper abdomen are nonspecific. Left basilar atele ctasis favored over infiltrate.. IMPRESSION: 1. Nonspecific abdomen. There is a paucity of bowel gas and prominent small bowel loop in the left a bdomen. Ileus, enteritis in the differential diagnosis. Partial obstruction also a consideration muna elate clinically. 2. Left basilar atelectasis favored over infiltrate.
[2019-05-24 15:07] LABS: Appearance,Urine Clear (Clear); Bilirubin,Urine Negative (Negative); Blood,Urine Negative (Negative); Color,Urine Yellow; Glucose,Urine (UA) Negative (Negative); Ketones,Urine Negative (Negative); Leukocyte Esterase,Urine Negative (Negative); Nitrite,Urine Negative (Negative); PH, Urine 5.5 (5.0-8.0); Protein,Urine Negative (Negative); Specific Gravity,Urine 1.011 (1.001-1.035); Urobilinogen,Urine <2.0 mg/dL (<2.0)
[2019-05-24] MEDS ORDERED: NALOXONE 0.4 MG/ML 1 ML VIAL IV PRN (16:06)
[2019-05-24] MEDS ORDERED: POTASSIUM CHLORIDE 2 MEQ/ML 20 ML VIAL IVPB STA (16:34)
[2019-05-24 17:43] VITALS: BMI 30.2
[2019-05-24] MEDS: SODIUM CHLORIDE 0.9% 1,000 ML IV SCH (17:43)
[2019-05-24] MEDS: POTASSIUM CHLORIDE 10 MEQ in WATER FOR INJECTION 1 100ML.BAG IVPB SCH ×3 (17:49→23:22)
[2019-05-24] MEDS: MORPHINE SULFATE 4 MG/ML SYRINGE IV PRN (17:54)
[2019-05-24 21:04] LABS: Glucose,Whole Blood 99 mg/dL (75-99)
[2019-05-24] MEDS: INSULIN ASPART (NovoLOG) 100 UNIT/ML VIAL SQ SCH (21:26)
[2019-05-24] MEDS: METOPROLOL TARTRATE 12.5 MG TAB PO SCH (21:31)
[2019-05-24] MEDS: SUCRALFATE 1 GM TAB PO SCH (21:32)
[2019-05-24] MEDS: RIFAXIMIN 550 MG TABLET PO SCH (21:33)
[2019-05-24] MEDS: SODIUM BICARBONATE TAB 650 MG TAB PO SCH (21:33)
[2019-05-24] MEDS: NITROFURANTOIN MONOHYD/M-CRYST 100 MG CAP PO SCH (21:34)
[2019-05-24] MEDS: DICYCLOMINE 20 MG TAB PO SCH (21:34)
[2019-05-24] MEDS: ZINC OXIDE 20% OINT 28.4 GM TUBE TOPICAL SCH (23:43)
[2019-05-24] MEDS: MAGNESIUM OXIDE 400 MG TAB PO SCH (23:43)
[2019-05-24] MEDS: FERROUS SULFATE 325 MG TAB PO SCH (23:43)
[2019-05-25] MEDS: LACTULOSE 20 GM/30 ML CUP PO SCH ×4 (00:54→21:19)
[2019-05-25] MEDS: POTASSIUM CHLORIDE 10 MEQ in WATER FOR INJECTION 1 100ML.BAG IVPB SCH (02:23)
[2019-05-25] MEDS: MORPHINE SULFATE 4 MG/ML SYRINGE IV PRN ×2 (04:06→09:04)
[2019-05-25] MEDS: SODIUM CHLORIDE 0.9% 1,000 ML IV SCH ×3 (04:13→19:21)
[2019-05-25 07:19] LABS: Glucose,Whole Blood 93 mg/dL (75-99)
[2019-05-25 08:29] LABS: Basophils % (A) 1 %; Eosinophils # (A) 0.1 k/uL (0-0.7); Eosinophils % (A) 3 %; HCT 33.6 % (34.0-46.0); HGB 11.1 gm/dL (11.4-16.0); Lymphocytes # (A) 0.9 k/uL (1.0-4.8); Lymphocytes % (A) 22 %; MCH 34.9 pg (25.0-35.0); MCV 105.5 fL (80.0-100.0); Macrocytosis Moderate; Mean Platelet Volume 8.9; Monocytes # (A) 0.3 k/uL (0-1.0); Monocytes % (A) 7 %; Neutrophils # (A) 2.6 k/uL (1.3-7.7); Neutrophils % (A) 65 %; Poikilocytosis Slight; RBC 3.18 m/uL (3.80-5.40); RDW 15.3 % (11.5-15.5)
[2019-05-25 08:39] LABS: Platelet Count 76 k/uL (150-450); Potassium 2.7 mmol/L (3.5-5.1)
[2019-05-25] MEDS ORDERED: Potassium Replacement Protocol 1 EACH MISC MISCELLANE PRN (08:51)
[2019-05-25 09:00] LABS: Albumin 2.2 g/dL (3.5-5.0); Calcium 7.8 mg/dL (8.4-10.2); Total Bilirubin 2.7 mg/dL (0.2-1.3)
[2019-05-25] MEDS ORDERED: PANTOPRAZOLE 40 MG/10 ML VIAL IV SCH (09:00)
[2019-05-25] MEDS: INSULIN ASPART (NovoLOG) 100 UNIT/ML VIAL SQ SCH ×4 (09:02→21:15)
[2019-05-25] MEDS: SUCRALFATE 1 GM TAB PO SCH ×4 (09:06→21:14)
[2019-05-25] MEDS: buPROPion SR 150 MG TABLET.ER PO SCH (09:08)
[2019-05-25] MEDS: FERROUS SULFATE 325 MG TAB PO SCH ×2 (09:08→21:14)
[2019-05-25] MEDS: DICYCLOMINE 20 MG TAB PO SCH ×3 (09:08→21:16)
[2019-05-25] MEDS: CHOLECALCIFEROL 1,000 UNIT TAB PO SCH (09:08)
[2019-05-25] MEDS: MAGNESIUM OXIDE 400 MG TAB PO SCH ×2 (09:09→21:14)
[2019-05-25] MEDS: METOPROLOL TARTRATE 12.5 MG TAB PO SCH ×2 (09:09→22:08)
[2019-05-25] MEDS: POTASSIUM CHLORIDE ER 20 MEQ TAB.ER PO SCH ×6 (09:10→18:09)
[2019-05-25] MEDS: NITROFURANTOIN MONOHYD/M-CRYST 100 MG CAP PO SCH ×2 (09:10→21:16)
[2019-05-25] MEDS: RIFAXIMIN 550 MG TABLET PO SCH ×2 (09:11→21:16)
[2019-05-25] MEDS: ZINC OXIDE 20% OINT 28.4 GM TUBE TOPICAL SCH ×2 (09:11→21:25)
[2019-05-25] MEDS: SODIUM BICARBONATE TAB 650 MG TAB PO SCH ×2 (09:11→21:15)
[2019-05-25] MEDS: TORSEMIDE 20 MG TAB PO SCH (09:11)
--- NOTE | 2019-05-25 09:28 | P.HPIM ---
History of Present Illness H&P Date: 05/25/19 Chief Complaint: Abdominal pain This is a 73-year-old female patient presents with complaints of abdominal pain with nausea and vomiting. Patient was recently admitted and discharged for altered mental status change related to elevated ammonia level. Patient reports that she was home and she started to develop dry heaves. Patient reports that the pain did not subside with eating. Patient has a known past medical history of primary liver cancer, diabetes mellitus, GERD, hypertension, myocardial infarction, chronic liver disease, chronic ascites requiring paracentesis his, over the ammonia level history of diverticular disease with ileostomy completed at [facility], anxiety and depression. KUB x-ray completed showing nonspecific abdomen there is a paucity of bowel gas and prominent small bowel loop in the left abdomen. Ileus, enteritis in the differential diagnosis. Partial obstruction also to be considered a correlate clinically. Left basilar atelectasis favored over infiltrate. At this time patient is alert and oriented 3 resting comfortably in bed. Abdomen is soft but tender to palpation. Patient is having stool through ostomy. Surgical services have been consulted. Patient denies chest pain or shortness breath. Patient denies nausea vomiting or diarrhea. Patient denies any urinary burning or frequency. Review of Systems Please refer to HPI otherwise unremarkable Past Medical History Past Medical History: Cancer, Diabetes Mellitus, GERD/Reflux, Hypertension, Liver Disease, Myocardial Infarction ([place]), Renal Disease Additional Past Medical History / Comment(s): Hepatocellular liver cancer with chemo immobilization-last time being 2017, ascities with paracentesis's , nonalcoholic liver cirrhosis, chronic pancytopenia, chronic elevated ammonia levels, hepatic encephalopathy, chronic elevated LFTs, chronic abdominal pain, stomach ulcer, diverticular disease with ileostomy, IDDM type II, iron anemia, CKD stage III, nonsustained vtach, UTI, high ammonia levels Last Myocardial Infarction Date:: unk History of Any Multi-Drug Resistant Organisms: MRSA, VRE Date of last positivie culture/infection: 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 Past Anesthesia/Blood Transfusion Reactions: No Reported Reaction Past Psychological History: Anxiety, Depression Additional Psychological History / Comment(s): pt resides at [facility] [phone] Reform smoker. . Retired. No experience. No animal exposures Smoking Status: Never smoker Past Alcohol Use History: None Reported Additional Past Alcohol Use History / Comment(s): started smoking 1962 and quit 1965 Past Drug Use History: None Reported - Past Family History Mother History Unknown: Yes Family Medical History: Congestive Heart Failure (CHF) Additional Family Medical History / Comment(s): Mother is 94 yrs old. Father Family Medical History: Chest Pain / Angina Additional Family Medical History / Comment(s): Father is . Medications and Allergies Home Medications Medication Instructions Recorded Confirmed Type Omeprazole [PriLOSEC] 20 mg PO BID 10/23/18 05/24/19 History Sucralfate [Carafate] 1 gm PO QID 10/23/18 05/24/19 History Insulin Regular, Human [NovoLIN R] 10 unit SQ AC-TID 10/24/18 05/24/19 History buPROPion SR [Wellbutrin SR] 150 mg PO DAILY #30 tablet.er 12/21/18 05/24/19 Rx Cholecalciferol [Vitamin D3 (25 4,000 unit PO DAILY 01/16/19 05/24/19 History Mcg = 1000 Iu)] Ferrous Sulfate [Iron (65 MG 325 mg PO BID 01/31/19 05/24/19 History Elemental)] Insulin NPH [humuLIN N] 18 unit SQ BID vial 02/06/19 05/24/19 Rx Dicyclomine [Bentyl] 20 mg PO TID 30 Days #180 cap 03/31/19 05/24/19 Rx Lactulose [Cephulac] 45 gm PO TID 04/07/19 05/24/19 History Rifaximin [Xifaxan] 550 mg PO BID tablet 04/17/19 05/24/19 Rx Sodium Bicarbonate Tab 1,300 mg PO BID tab 04/17/19 05/24/19 Rx Torsemide [Demadex] 20 mg PO Q48H 30 Days #30 tab 04/17/19 05/24/19 Rx Potassium Chloride [Klor-Con 20] 20 meq PO DAILY 04/21/19 05/24/19 History Metoprolol Tartrate [Lopressor] 12.5 mg PO BID 04/30/19 05/24/19 History Magnesium Oxide [William] 500 mg PO BID #6 tablet 05/05/19 05/24/19 Rx Zinc Oxide 20% Oint 1 applic TOPICAL BID #1 tube 05/05/19 05/24/19 Rx Morphine Sulfate [Ms Contin] 15 mg PO BID 05/15/19 05/24/19 History Nitrofurantoin Monohyd/M-Cryst 100 mg PO BID 7 Days #14 cap 05/22/19 05/24/19 Rx [Macrobid] Allergies Allergy/AdvReac Type Severity Reaction Status Date / Time amlodipine Allergy Rash/Hives Verified 05/24/19 12:43 oxycodone Allergy Rash/Hives Verified 05/24/19 12:43 Penicillins Allergy Rash/Hives Verified 05/24/19 12:43 hydromorphone [From Dilaudid] AdvReac Mild tactile Verified 05/24/19 12:43 disturbance GREG Inhibitors AdvReac Cough Verified 05/24/19 12:43 sodium dodecyclbenzene Allergy Rash/Hives Uncoded 05/24/19 12:29 sulfonate Physical Exam Vitals: Vital Signs Temp Pulse Pulse Resp BP BP Pulse Ox 05/25/19 07:00 98.2 F 62 16 95/56 98 05/25/19 00:52 98.2 F 52 L 14 96/52 98 05/24/19 19:32 98.4 F 58 L 14 100/52 100 05/24/19 17:33 98.1 F 66 12 119/54 100 05/24/19 17:00 98.3 F 58 L 16 106/45 100 05/24/19 15:00 16 05/24/19 12:21 98.6 F 51 L 16 117/44 100 Intake and Output 05/24/19 05/25/19 05/25/19 22:59 06:59 14:59 Intake Total 10 Output Total 150 Balance -150 10 Intake: Oral 10 Output: Stool 150 Other: # Voids 1 Head normocephalic Neck supple Lungs clear to auscultation bilaterally no wheezing or crackles Heart regular rate and rhythm S1-S2, no rub or gallop Abdomen is soft slightly tender to palpation. Extremities no edema. +1 lower extremity edema Neuro alert and orientated to 3 Results CBC & Chem 7: 05/25/19 07:13 05/25/19 07:13 Labs: Abnormal Lab Results - Last 24 Hours (Table) 05/24/19 05/24/19 05/24/19 Range/Units 12:55 12:55 12:55 RBC 3.75 L (3.80-5.40) m/uL Hgb (11.4-16.0) gm/dL Hct (34.0-46.0) % MCV 104.0 H (80.0-100.0) fL MCH 35.2 H (25.0-35.0) pg Plt Count 71 L (150-450) k/uL Lymphocytes # 0.7 L (1.0-4.8) k/uL PT 14.7 H (9.0-12.0) sec INR 1.5 H (<1.2) Potassium 2.6 L* (3.5-5.1) mmol/L Creatinine 1.07 H (0.52-1.04) mg/dL Glucose 136 H (74-99) mg/dL Calcium 7.9 L (8.4-10.2) mg/dL Total Bilirubin 2.6 H (0.2-1.3) mg/dL AST 65 H (14-36) U/L Alkaline Phosphatase 262 H (38-126) U/L Ammonia (<30) umol/L Total Protein (6.3-8.2) g/dL Albumin 3.0 L (3.5-5.0) g/dL Lipase 16 L (23-300) U/L 05/25/19 05/25/19 05/25/19 Range/Units 07:13 07:13 08:27 RBC 3.18 L (3.80-5.40) m/uL Hgb 11.1 L (11.4-16.0) gm/dL Hct 33.6 L (34.0-46.0) % MCV 105.5 H (80.0-100.0) fL MCH (25.0-35.0) pg Plt Count 76 L (150-450) k/uL Lymphocytes # 0.9 L (1.0-4.8) k/uL PT (9.0-12.0) sec INR (<1.2) Potassium 2.7 L* (3.5-5.1) mmol/L Creatinine (0.52-1.04) mg/dL Glucose (74-99) mg/dL Calcium 7.8 L (8.4-10.2) mg/dL Total Bilirubin 2.7 H (0.2-1.3) mg/dL AST 50 H (14-36) U/L Alkaline Phosphatase 181 H (38-126) U/L Ammonia 46 H (<30) umol/L Total Protein 5.0 L (6.3-8.2) g/dL Albumin 2.2 L (3.5-5.0) g/dL Lipase (23-300) U/L Assessment and Plan Assessment: 1. Abdominal pain with nausea and vomiting. KUB x-ray completed showing nonspecific abdomen. There is paucity of bowel gas and prominent small bowel loop in the left abdomen. Ileus enteritis in the differential diagnoses partial dissection also consideration correlate clinically. Left basilar atelectasis favored over infiltrate 2. Hypokalemia. Potassium 2.7 replace per protocol recheck today at 2 PM 3. History of nonalcoholic liver cirrhosis 4. History of hepatocellular carcinoma status post embolization in 2013, 2016 and 2018 5. Chronic kidney disease stage III 6. History of diverticulitis with ileostomy placement at [facility]. Patient has been advised to follow-up on multiple times with surgeon on his [facility]. 7. History of chronic abdominal pain due to recurring abdominal ascites 8. Chronic elevated ammonia level. Patient maintained on lactulose and Xifaxan. Continue to monitor ammonia levels 9. Chronic thrombocytopenia due to known liver cancer secondary to chronic liver cirrhosis 10. Insulin-dependent diabetes mellitus 11. Iron deficiency anemia 12. Chronic elevated LFTs due to chronic liver malignancy 13. History of depression DVT prophylaxis SCDs due to, thrombocytopenia. GI prophylaxis Protonix Time with Patient: Greater than 30 (Greater than 60% of the total time spent in counseling and coordination of care. I performed an examination of the patient and discussed their management with the Nurse Practitioner. I have reviewed the Nurse Practitioner's notes and agree with the documented findings and plan of care)
[2019-05-25] MEDS: ONDANSETRON 4 MG/2 ML VIAL IVP PRN (10:45)
[2019-05-25 11:17] LABS: Glucose,Whole Blood 94 mg/dL (75-99)
--- NOTE | 2019-05-25 13:55 | P.GSCN ---
History of Present Illness Consult date: 05/25/19 Reason for Consult: abdominal pain Requesting physician: Artemio Lea History of present illness: CHIEF COMPLAINT: abdominal pain HISTORY OF PRESENT ILLNESS: 73 year old female with a history of diverticulitis with ileostomy placement performed at [facility], chronic abdominal pain, and nonalcoholic liver cirrhosis who presented to the hospital with a chief complaint of abdominal pain, nausea, and vomiting x 1 day. patient examined this morning at the bedside. She denies further episodes of nausea or vomiting. She reports abdominal pain near ostomy. PAST MEDICAL HISTORY: See list. PAST SURGICAL HISTORY: See list. SOCIAL HISTORY: No illicit drug use. REVIEW OF SYSTEMS: CONSTITUTIONAL: Denies fever or chills. HEENT: Denies blurred vision, vision changes, or eye pain. Denies hemoptysis CARDIOVASCULAR: Denies chest pain or pressure. RESPIRATORY: No shortness of breath. GASTROINTESTINAL: Refer to HPI for pertinent findings HEMATOLOGIC: Denies bleeding disorders. GENITOURINARY: Denies any blood in urine. SKIN: Denies pruitis. Denies rash. PHYSICAL EXAM: VITAL SIGNS: Reviewed. GENERAL: Well-developed in no acute distress. HEENT: No sclera icterus. Extraocular movements grossly intact. Moist buccal mucosa. Head is atraumatic, normocephalic. ABDOMEN: Soft. Nondistended. Tenderness with palpation near ostomy. Ileostomy functioning with large amount of liquid stool present. NEUROLOGIC: Alert and oriented. Cranial nerves II through XII grossly intact. LABORATORY DATA: laboratory data upon admission revealed white count 5.0. Hemoglobin 13.2. Sodium 141. Potassium 2.6. BUN 15. Creatinine 1.07. Bilirubin 2.6. AST 65. ALT 38. IMAGING: KUB xray: bowel gas pattern is nonspecific. Single prominent bowel loops in the left abdomen noted. ASSESSMENT: 1. Acute on chronic abdominal pain 2. History of diverticulitis with ileostomy placement at [facility] PLAN: Case discussed with primary team who has recommended multiple times that patient follow up with her surgeon at [facility] but patient has been noncompliant in doing so. Nausea and vomiting have resolved. Ostomy functioning. No surgical intervention recommended. Agreeable to follow up at [facility] with patients surgeon. No surgical intervention recommended at this time. Nurse practitioner note has been reviewed by physician. Signing provider agrees with the documented findings, assessment, and plan of care. Past Medical History Past Medical History: Cancer, Diabetes Mellitus, GERD/Reflux, Hypertension, Liver Disease, Myocardial Infarction ([place]), Renal Disease Additional Past Medical History / Comment(s): Hepatocellular liver cancer with chemo immobilization-last time being 2017, ascities with paracentesis's , nonalcoholic liver cirrhosis, chronic pancytopenia, chronic elevated ammonia levels, hepatic encephalopathy, chronic elevated LFTs, chronic abdominal pain, stomach ulcer, diverticular disease with ileostomy, IDDM type II, iron anemia, CKD stage III, nonsustained vtach, UTI, high ammonia levels Last Myocardial Infarction Date:: unk History of Any Multi-Drug Resistant Organisms: MRSA, VRE Year Discovered:: 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 Past Anesthesia/Blood Transfusion Reactions: No Reported Reaction Past Psychological History: Anxiety, Depression Additional Psychological History / Comment(s): pt resides at [facility] [phone] Reformed smoker. . Retired. No experience. No animal exposures Smoking Status: Never smoker Past Alcohol Use History: None Reported Additional Past Alcohol Use History / Comment(s): started smoking 1962 and quit 1965 Past Drug Use History: None Reported - Past Family History Mother History Unknown: Yes Family Medical History: Congestive Heart Failure (CHF) Additional Family Medical History / Comment(s): Mother is 94 yrs old. Father Family Medical History: Chest Pain / Angina Additional Family Medical History / Comment(s): Father is . Medications and Allergies Home Medications Medication Instructions Recorded Confirmed Type Omeprazole [PriLOSEC] 20 mg PO BID 10/23/18 05/24/19 History Sucralfate [Carafate] 1 gm PO QID 10/23/18 05/24/19 History Insulin Regular, Human [NovoLIN R] 10 unit SQ AC-TID 10/24/18 05/24/19 History buPROPion SR [Wellbutrin SR] 150 mg PO DAILY #30 tablet.er 12/21/18 05/24/19 Rx Cholecalciferol [Vitamin D3 (25 4,000 unit PO DAILY 01/16/19 05/24/19 History Mcg = 1000 Iu)] Ferrous Sulfate [Iron (65 MG 325 mg PO BID 01/31/19 05/24/19 History Elemental)] Insulin NPH [humuLIN N] 18 unit SQ BID vial 02/06/19 05/24/19 Rx Dicyclomine [Bentyl] 20 mg PO TID 30 Days #180 cap 03/31/19 05/24/19 Rx Lactulose [Cephulac] 45 gm PO TID 04/07/19 05/24/19 History Rifaximin [Xifaxan] 550 mg PO BID tablet 04/17/19 05/24/19 Rx Sodium Bicarbonate Tab 1,300 mg PO BID tab 04/17/19 05/24/19 Rx Torsemide [Demadex] 20 mg PO Q48H 30 Days #30 tab 04/17/19 05/24/19 Rx Potassium Chloride [Klor-Con 20] 20 meq PO DAILY 04/21/19 05/24/19 History Metoprolol Tartrate [Lopressor] 12.5 mg PO BID 04/30/19 05/24/19 History Magnesium Oxide [William] 500 mg PO BID #6 tablet 05/05/19 05/24/19 Rx Zinc Oxide 20% Oint 1 applic TOPICAL BID #1 tube 05/05/19 05/24/19 Rx Morphine Sulfate [Ms Contin] 15 mg PO BID 05/15/19 05/24/19 History Nitrofurantoin Monohyd/M-Cryst 100 mg PO BID 7 Days #14 cap 05/22/19 05/24/19 Rx [Macrobid] Allergies Allergy/AdvReac Type Severity Reaction Status Date / Time amlodipine Allergy Rash/Hives Verified 05/24/19 12:43 oxycodone Allergy Rash/Hives Verified 05/24/19 12:43 Penicillins Allergy Rash/Hives Verified 05/24/19 12:43 hydromorphone [From Dilaudid] AdvReac Mild tactile Verified 05/24/19 12:43 disturbance GREG Inhibitors AdvReac Cough Verified 05/24/19 12:43 sodium dodecyclbenzene Allergy Rash/Hives Uncoded 05/24/19 12:29 sulfonate Surgical - Exam Vital Signs Temp Pulse Resp BP Pulse Ox 98.6 F 51 L 16 117/44 100 05/24/19 12:21 05/24/19 12:21 05/24/19 12:21 05/24/19 12:21 05/24/19 12:21 Results - Labs 05/25/19 07:13 05/25/19 07:13 Abnormal Lab Results - Last 24 Hours (Table) 05/25/19 05/25/19 05/25/19 Range/Units 07:13 07:13 08:27 RBC 3.18 L (3.80-5.40) m/uL Hgb 11.1 L (11.4-16.0) gm/dL Hct 33.6 L (34.0-46.0) % MCV 105.5 H (80.0-100.0) fL Plt Count 76 L (150-450) k/uL Lymphocytes # 0.9 L (1.0-4.8) k/uL Potassium 2.7 L* (3.5-5.1) mmol/L Calcium 7.8 L (8.4-10.2) mg/dL Total Bilirubin 2.7 H (0.2-1.3) mg/dL AST 50 H (14-36) U/L Alkaline Phosphatase 181 H (38-126) U/L Ammonia 46 H (<30) umol/L Total Protein 5.0 L (6.3-8.2) g/dL Albumin 2.2 L (3.5-5.0) g/dL Diabetes panel 05/25/19 Range/Units 07:13 Sodium 142 (137-145) mmol/L Potassium 2.7 L* (3.5-5.1) mmol/L Chloride 107 (98-107) mmol/L Carbon Dioxide 26 (22-30) mmol/L BUN 16 (7-17) mg/dL Creatinine 0.99 (0.52-1.04) mg/dL Glucose 88 (74-99) mg/dL Calcium 7.8 L (8.4-10.2) mg/dL AST 50 H (14-36) U/L ALT 32 (9-52) U/L Alkaline Phosphatase 181 H (38-126) U/L Total Protein 5.0 L (6.3-8.2) g/dL Albumin 2.2 L (3.5-5.0) g/dL Calcium panel 05/25/19 Range/Units 07:13 Calcium 7.8 L (8.4-10.2) mg/dL Albumin 2.2 L (3.5-5.0) g/dL Pituitary panel 05/25/19 Range/Units 07:13 Sodium 142 (137-145) mmol/L Potassium 2.7 L* (3.5-5.1) mmol/L Chloride 107 (98-107) mmol/L Carbon Dioxide 26 (22-30) mmol/L BUN 16 (7-17) mg/dL Creatinine 0.99 (0.52-1.04) mg/dL Glucose 88 (74-99) mg/dL Calcium 7.8 L (8.4-10.2) mg/dL Adrenal panel 05/25/19 Range/Units 07:13 Sodium 142 (137-145) mmol/L Potassium 2.7 L* (3.5-5.1) mmol/L Chloride 107 (98-107) mmol/L Carbon Dioxide 26 (22-30) mmol/L BUN 16 (7-17) mg/dL Creatinine 0.99 (0.52-1.04) mg/dL Glucose 88 (74-99) mg/dL Calcium 7.8 L (8.4-10.2) mg/dL Total Bilirubin 2.7 H (0.2-1.3) mg/dL AST 50 H (14-36) U/L ALT 32 (9-52) U/L Alkaline Phosphatase 181 H (38-126) U/L Total Protein 5.0 L (6.3-8.2) g/dL Albumin 2.2 L (3.5-5.0) g/dL
[2019-05-25 17:07] LABS: Glucose,Whole Blood 383 mg/dL (75-99)
[2019-05-25 20:53] LABS: Glucose,Whole Blood 312 mg/dL (75-99)
[2019-05-25] MEDS: MORPHINE SULFATE ER 15 MG TABLET PO SCH (21:14)
[2019-05-25 21:59] LABS: Glucose,Whole Blood 259 mg/dL (75-99)
[2019-05-25] MEDS: INSULIN NPH 300 UNIT/3 ML VIAL SQ SCH (22:06)
[2019-05-26] MEDS: MORPHINE SULFATE 2 MG/ML SYRINGE IVP PRN ×2 (00:59→04:23)
[2019-05-26] MEDS: SODIUM CHLORIDE 0.9% 1,000 ML IV SCH ×3 (02:36→17:01)
[2019-05-26 07:03] LABS: Glucose,Whole Blood 73 mg/dL (75-99)
[2019-05-26 07:21] LABS: Albumin 2.2 g/dL (3.5-5.0); Calcium 7.7 mg/dL (8.4-10.2); Potassium 3.5 mmol/L (3.5-5.1); Total Bilirubin 2.1 mg/dL (0.2-1.3); Total Protein 5.2 g/dL (6.3-8.2)
[2019-05-26 07:23] LABS: Basophils % (A) 1 %; Eosinophils # (A) 0.2 k/uL (0-0.7); Eosinophils % (A) 5 %; HCT 32.6 % (34.0-46.0); HGB 11.1 gm/dL (11.4-16.0); Lymphocytes # (A) 1.1 k/uL (1.0-4.8); Lymphocytes % (A) 23 %; MCV 105.9 fL (80.0-100.0); Macrocytosis Moderate; Mean Platelet Volume 9.7; Monocytes # (A) 0.4 k/uL (0-1.0); Monocytes % (A) 8 %; Neutrophils # (A) 2.8 k/uL (1.3-7.7); Neutrophils % (A) 61 %; RBC 3.08 m/uL (3.80-5.40); RDW 15.6 % (11.5-15.5); WBC 4.6 k/uL (3.8-10.6)
--- NOTE | 2019-05-26 07:37 | XR ---
EXAMINATION TYPE: XR chest 2V DATE OF EXAM: 05/26/2019 COMPARISON: 05/14/2019 INDICATION: Follow-up previous abnormal chest TECHNIQUE: Frontal and lateral views of the chest are obtained. FINDINGS: The heart size is normal. The pulmonary vasculature is normal. The lungs are clear. IMPRESSION: 1. No acute pulmonary process.
[2019-05-26 07:43] LABS: Platelet Count 67 k/uL (150-450)
[2019-05-26] MEDS: INSULIN ASPART (NovoLOG) 100 UNIT/ML VIAL SQ SCH ×4 (07:56→21:55)
[2019-05-26] MEDS: CHOLECALCIFEROL 1,000 UNIT TAB PO SCH (08:07)
[2019-05-26] MEDS: METOPROLOL TARTRATE 12.5 MG TAB PO SCH ×2 (08:07→21:52)
[2019-05-26] MEDS: LACTULOSE 20 GM/30 ML CUP PO SCH ×3 (08:07→21:53)
[2019-05-26] MEDS: INSULIN NPH 300 UNIT/3 ML VIAL SQ SCH ×2 (08:08→21:54)
[2019-05-26] MEDS: PANTOPRAZOLE 40 MG TABLET PO SCH (08:08)
[2019-05-26] MEDS: FERROUS SULFATE 325 MG TAB PO SCH ×2 (08:08→21:50)
[2019-05-26] MEDS: MAGNESIUM OXIDE 400 MG TAB PO SCH ×2 (08:08→21:51)
[2019-05-26] MEDS: MORPHINE SULFATE ER 15 MG TABLET PO SCH ×2 (08:08→21:50)
[2019-05-26] MEDS: SODIUM BICARBONATE TAB 650 MG TAB PO SCH ×2 (08:08→21:51)
[2019-05-26] MEDS: SUCRALFATE 1 GM TAB PO SCH ×4 (08:08→21:49)
[2019-05-26] MEDS: RIFAXIMIN 550 MG TABLET PO SCH ×2 (08:09→21:49)
[2019-05-26] MEDS: DICYCLOMINE 20 MG TAB PO SCH ×3 (08:09→21:50)
[2019-05-26] MEDS: INSULIN REGULAR 100 UNIT/ML VIAL SQ SCH ×3 (08:09→17:00)
[2019-05-26] MEDS: buPROPion SR 150 MG TABLET.ER PO SCH (08:10)
[2019-05-26] MEDS: NITROFURANTOIN MONOHYD/M-CRYST 100 MG CAP PO SCH ×2 (08:10→21:49)
[2019-05-26] MEDS: ZINC OXIDE 20% OINT 28.4 GM TUBE TOPICAL SCH ×2 (08:11→21:53)
[2019-05-26] MEDS: POTASSIUM CHLORIDE ER 20 MEQ TAB.ER PO SCH ×3 (08:11→12:32)
[2019-05-26] MEDS ORDERED: Potassium Replacement Protocol 1 EACH MISC MISCELLANE PRN (09:17)
--- NOTE | 2019-05-26 09:21 | P.PN ---
Subjective Progress Note Date: 05/26/19 This is a 73-year-old female patient presents with complaints of abdominal pain with nausea and vomiting. Patient was recently admitted and discharged for altered mental status change related to elevated ammonia level. Patient reports that she was home and she started to develop dry heaves. Patient reports that the pain did not subside with eating. Patient has a known past medical history of primary liver cancer, diabetes mellitus, GERD, hypertension, myocardial infarction, chronic liver disease, chronic ascites requiring paracentesis his, over the ammonia level history of diverticular disease with ileostomy completed at [facility], anxiety and depression. KUB x-ray completed showing nonspecific abdomen there is a paucity of bowel gas and prominent small bowel loop in the left abdomen. Ileus, enteritis in the differential diagnosis. Partial obstruction also to be considered a correlate clinically. Left basilar atelectasis favored over infiltrate. At this time patient is alert and oriented 3 resting comfortably in bed. Abdomen is soft but tender to palpation. Patient is having stool through ostomy. Surgical services have been consulted. Patient denies chest pain or shortness breath. Patient denies nausea vomiting or diarrhea. Patient denies any urinary burning or frequency. On 05/26/2019 patient is alert and oriented 3. Patient is complaining of some increased nausea today. Diet to remain at full liquid at this time. No plans for surgical intervention per surgical services. Ammonia 26. Patient denies chest pain or shortness breath. patient is complaining of some nausea and vomiting. Patient denies any urinary burning or frequency Objective - Vital Signs Vital signs: Vital Signs Temp 98.7 F 05/26/19 07:00 Pulse 62 05/26/19 07:00 Resp 15 05/26/19 07:00 BP 96/57 05/26/19 07:00 Pulse Ox 99 05/26/19 07:00 Intake & Output 05/25/19 05/26/19 05/26/19 18:59 06:59 18:59 Intake Total 1930 480 Output Total 300 250 Balance -300 1680 480 Intake: Intake, IV Titration 1320 Amount Sodium Chloride 0.9% 1, 1320 000 ml @ 120 mls/hr IV . Q8H20M [facility] Rx#:[id number] Oral 610 480 Output: Stool 300 250 Other: Voiding Method Toilet Toilet # Voids 2 2 - Exam Head normocephalic Neck supple Lungs clear to auscultation bilaterally no wheezing or crackles Heart regular rate and rhythm S1-S2, no rub or gallop Abdomen is soft slightly tender to palpation. Extremities no edema. +1 lower extremity edema Neuro alert and orientated to 3 - Labs CBC & Chem 7: 05/26/19 06:54 05/26/19 06:54 Labs: Abnormal Lab Results - Last 24 Hours (Table) 05/25/19 05/25/19 05/25/19 Range/Units 08:27 14:00 17:06 RBC (3.80-5.40) m/uL Hgb (11.4-16.0) gm/dL Hct (34.0-46.0) % MCV (80.0-100.0) fL MCH (25.0-35.0) pg RDW (11.5-15.5) % Plt Count (150-450) k/uL Potassium 3.1 L (3.5-5.1) mmol/L Chloride (98-107) mmol/L Glucose (74-99) mg/dL POC Glucose (mg/dL) 383 H (75-99) mg/dL Calcium (8.4-10.2) mg/dL Total Bilirubin (0.2-1.3) mg/dL AST (14-36) U/L Alkaline Phosphatase (38-126) U/L Ammonia 46 H (<30) umol/L Total Protein (6.3-8.2) g/dL Albumin (3.5-5.0) g/dL 05/25/19 05/25/19 05/26/19 Range/Units 20:51 21:58 06:54 RBC 3.08 L (3.80-5.40) m/uL Hgb 11.1 L (11.4-16.0) gm/dL Hct 32.6 L (34.0-46.0) % MCV 105.9 H (80.0-100.0) fL MCH 36.0 H (25.0-35.0) pg RDW 15.6 H (11.5-15.5) % Plt Count 67 L (150-450) k/uL Potassium (3.5-5.1) mmol/L Chloride (98-107) mmol/L Glucose (74-99) mg/dL POC Glucose (mg/dL) 312 H 259 H (75-99) mg/dL Calcium (8.4-10.2) mg/dL Total Bilirubin (0.2-1.3) mg/dL AST (14-36) U/L Alkaline Phosphatase (38-126) U/L Ammonia (<30) umol/L Total Protein (6.3-8.2) g/dL Albumin (3.5-5.0) g/dL 05/26/19 05/26/19 Range/Units 06:54 07:00 RBC (3.80-5.40) m/uL Hgb (11.4-16.0) gm/dL Hct (34.0-46.0) % MCV (80.0-100.0) fL MCH (25.0-35.0) pg RDW (11.5-15.5) % Plt Count (150-450) k/uL Potassium (3.5-5.1) mmol/L Chloride 110 H (98-107) mmol/L Glucose 65 L (74-99) mg/dL POC Glucose (mg/dL) 73 L (75-99) mg/dL Calcium 7.7 L (8.4-10.2) mg/dL Total Bilirubin 2.1 H (0.2-1.3) mg/dL AST 58 H (14-36) U/L Alkaline Phosphatase 179 H (38-126) U/L Ammonia (<30) umol/L Total Protein 5.2 L (6.3-8.2) g/dL Albumin 2.2 L (3.5-5.0) g/dL Assessment and Plan Assessment: 1. Abdominal pain with nausea and vomiting. KUB x-ray completed showing nonspecific abdomen. There is paucity of bowel gas and prominent small bowel loop in the left abdomen. Ileus enteritis in the differential diagnoses partial dissection also consideration correlate clinically. Left basilar atelectasis favored over infiltrate. Per surgical services no plans for surgical intervention at this time. Patient maintained on full liquid diet at this time 2. Hypokalemia. Potassium 2.7 replace per protocol recheck today at 2 PM 3. History of nonalcoholic liver cirrhosis 4. History of hepatocellular carcinoma status post embolization in 2012, 2015 and 2018 5. Chronic kidney disease stage III 6. History of diverticulitis with ileostomy placement at [facility]. Patient has been advised to follow-up on multiple times with surgeon on his [facility]. 7. History of chronic abdominal pain due to recurring abdominal ascites 8. Chronic elevated ammonia level. Patient maintained on lactulose and Xifaxan. Continue to monitor ammonia levels. ammonia level 26 9. Chronic thrombocytopenia due to known liver cancer secondary to chronic liver cirrhosis 10. Insulin-dependent diabetes mellitus 11. Iron deficiency anemia 12. Chronic elevated LFTs due to chronic liver malignancy 13. History of depression DVT prophylaxis SCDs due to, thrombocytopenia. GI prophylaxis Protonix I performed an examination of the patient and discussed their management with the Nurse Practitioner. I have reviewed the Nurse Practitioner's notes and agree with the documented findings and plan of care
[2019-05-26 11:49] LABS: Glucose,Whole Blood 209 mg/dL (75-99)
[2019-05-26] MEDS ORDERED: PROCHLORPERAZINE 10 MG TAB PO PRN (12:32)
--- NOTE | 2019-05-26 14:46 | P.PN ---
Subjective Progress Note Date: 05/26/19 CHIEF COMPLAINT: abdominal pain HISTORY OF PRESENT ILLNESS: Patient examined at the bedside. Reports improvement of abdominal pain. Denies nausea or vomiting. Tolerating full liquid diet. PHYSICAL EXAM: VITAL SIGNS: Reviewed. GENERAL: Well-developed in no acute distress. HEENT: No sclera icterus. Extraocular movements grossly intact. Moist buccal mucosa. Head is atraumatic, normocephalic. ABDOMEN: Soft. Nondistended. Tenderness with palpation near ostomy, improved. Ileostomy functioning with large amount of liquid stool present. NEUROLOGIC: Alert and oriented. Cranial nerves II through XII grossly intact. ASSESSMENT: 1. Acute on chronic abdominal pain 2. History of diverticulitis with ileostomy placement at [facility] PLAN: 1. Case discussed with primary team yesterday who has recommended multiple times that patient follow up with her surgeon at [facility] but patient has been noncompliant in doing so. No surgical intervention recommended. Agreeable to follow up at [facility] with patients surgeon. 2. Advance diet to regular diet. 3. Stable for discharge from a surgical perspective Nurse practitioner note has been reviewed by physician. Signing provider agrees with the documented findings, assessment, and plan of care. Objective - Vital Signs Vital signs: Vital Signs Temp 98.7 F 05/26/19 07:00 Pulse 62 05/26/19 07:00 Resp 15 05/26/19 07:00 BP 96/57 05/26/19 07:00 Pulse Ox 99 05/26/19 07:00 Intake & Output 05/25/19 05/26/19 05/26/19 18:59 06:59 18:59 Intake Total 1930 480 Output Total 300 250 Balance -300 1680 480 Intake: Intake, IV Titration 1320 Amount Sodium Chloride 0.9% 1, 1320 000 ml @ 120 mls/hr IV . Q8H20M [facility] Rx#:[id number] Oral 610 480 Output: Stool 300 250 Other: Voiding Method Toilet Toilet # Voids 2 2 - Labs CBC & Chem 7: 05/26/19 06:54 05/26/19 06:54 Labs: Abnormal Lab Results - Last 24 Hours (Table) 05/25/19 05/25/19 05/25/19 Range/Units 14:00 17:06 20:51 RBC (3.80-5.40) m/uL Hgb (11.4-16.0) gm/dL Hct (34.0-46.0) % MCV (80.0-100.0) fL MCH (25.0-35.0) pg RDW (11.5-15.5) % Plt Count (150-450) k/uL Potassium 3.1 L (3.5-5.1) mmol/L Chloride (98-107) mmol/L Glucose (74-99) mg/dL POC Glucose (mg/dL) 383 H 312 H (75-99) mg/dL Calcium (8.4-10.2) mg/dL Total Bilirubin (0.2-1.3) mg/dL AST (14-36) U/L Alkaline Phosphatase (38-126) U/L Total Protein (6.3-8.2) g/dL Albumin (3.5-5.0) g/dL 05/25/19 05/26/19 05/26/19 Range/Units 21:58 06:54 06:54 RBC 3.08 L (3.80-5.40) m/uL Hgb 11.1 L (11.4-16.0) gm/dL Hct 32.6 L (34.0-46.0) % MCV 105.9 H (80.0-100.0) fL MCH 36.0 H (25.0-35.0) pg RDW 15.6 H (11.5-15.5) % Plt Count 67 L (150-450) k/uL Potassium (3.5-5.1) mmol/L Chloride 110 H (98-107) mmol/L Glucose 65 L (74-99) mg/dL POC Glucose (mg/dL) 259 H (75-99) mg/dL Calcium 7.7 L (8.4-10.2) mg/dL Total Bilirubin 2.1 H (0.2-1.3) mg/dL AST 58 H (14-36) U/L Alkaline Phosphatase 179 H (38-126) U/L Total Protein 5.2 L (6.3-8.2) g/dL Albumin 2.2 L (3.5-5.0) g/dL 05/26/19 05/26/19 Range/Units 07:00 11:48 RBC (3.80-5.40) m/uL Hgb (11.4-16.0) gm/dL Hct (34.0-46.0) % MCV (80.0-100.0) fL MCH (25.0-35.0) pg RDW (11.5-15.5) % Plt Count (150-450) k/uL Potassium (3.5-5.1) mmol/L Chloride (98-107) mmol/L Glucose (74-99) mg/dL POC Glucose (mg/dL) 73 L 209 H (75-99) mg/dL Calcium (8.4-10.2) mg/dL Total Bilirubin (0.2-1.3) mg/dL AST (14-36) U/L Alkaline Phosphatase (38-126) U/L Total Protein (6.3-8.2) g/dL Albumin (3.5-5.0) g/dL
[2019-05-26 16:45] LABS: Glucose,Whole Blood 104 mg/dL (75-99)
[2019-05-26 20:35] LABS: Glucose,Whole Blood 240 mg/dL (75-99)
[2019-05-27] MEDS: SODIUM CHLORIDE 0.9% 1,000 ML IV SCH ×3 (00:37→20:47)
[2019-05-27 06:37] LABS: Basophils % (A) 1 %; Eosinophils # (A) 0.3 k/uL (0-0.7); Eosinophils % (A) 5 %; HGB 10.5 gm/dL (11.4-16.0); Lymphocytes # (A) 1.1 k/uL (1.0-4.8); Lymphocytes % (A) 24 %; MCH 35.1 pg (25.0-35.0); MCHC 32.8 g/dL (31.0-37.0); MCV 107.2 fL (80.0-100.0); Macrocytosis Moderate; Mean Platelet Volume 9.1; Monocytes # (A) 0.3 k/uL (0-1.0); Monocytes % (A) 6 %; Neutrophils % (A) 62 %; RBC 2.98 m/uL (3.80-5.40); RDW 14.7 % (11.5-15.5); WBC 4.8 k/uL (3.8-10.6)
[2019-05-27 06:45] LABS: Platelet Count 69 k/uL (150-450)
[2019-05-27 07:09] LABS: Glucose,Whole Blood 151 mg/dL (75-99)
[2019-05-27 07:27] LABS: Albumin 2.1 g/dL (3.5-5.0); Potassium 4.2 mmol/L (3.5-5.1); Total Bilirubin 1.3 mg/dL (0.2-1.3); Total Protein 4.9 g/dL (6.3-8.2)
[2019-05-27] MEDS: INSULIN ASPART (NovoLOG) 100 UNIT/ML VIAL SQ SCH ×4 (07:32→20:47)
[2019-05-27] MEDS: INSULIN REGULAR 100 UNIT/ML VIAL SQ SCH ×3 (07:32→17:25)
[2019-05-27] MEDS: METOPROLOL TARTRATE 12.5 MG TAB PO SCH ×2 (09:45→21:05)
[2019-05-27] MEDS: MAGNESIUM OXIDE 400 MG TAB PO SCH ×2 (09:45→21:18)
[2019-05-27] MEDS: PANTOPRAZOLE 40 MG TABLET PO SCH (09:46)
[2019-05-27] MEDS: CHOLECALCIFEROL 1,000 UNIT TAB PO SCH (09:46)
[2019-05-27] MEDS: SODIUM BICARBONATE TAB 650 MG TAB PO SCH ×2 (09:46→21:17)
[2019-05-27] MEDS: POTASSIUM CHLORIDE ER 20 MEQ TAB.ER PO SCH (09:46)
[2019-05-27] MEDS: SUCRALFATE 1 GM TAB PO SCH ×4 (09:46→21:17)
[2019-05-27] MEDS: MORPHINE SULFATE ER 15 MG TABLET PO SCH ×2 (09:46→21:18)
[2019-05-27] MEDS: FERROUS SULFATE 325 MG TAB PO SCH ×2 (09:46→21:18)
[2019-05-27] MEDS: DICYCLOMINE 20 MG TAB PO SCH ×3 (09:47→21:18)
[2019-05-27] MEDS: NITROFURANTOIN MONOHYD/M-CRYST 100 MG CAP PO SCH ×2 (09:47→21:18)
[2019-05-27] MEDS: buPROPion SR 150 MG TABLET.ER PO SCH (09:47)
[2019-05-27] MEDS: TORSEMIDE 20 MG TAB PO SCH (09:48)
[2019-05-27] MEDS: RIFAXIMIN 550 MG TABLET PO SCH ×2 (09:48→21:17)
[2019-05-27] MEDS: ZINC OXIDE 20% OINT 28.4 GM TUBE TOPICAL SCH ×3 (09:48→21:22)
[2019-05-27] MEDS: LACTULOSE 20 GM/30 ML CUP PO SCH ×3 (10:16→21:05)
[2019-05-27] MEDS: INSULIN NPH 300 UNIT/3 ML VIAL SQ SCH ×2 (10:24→21:11)
[2019-05-27 11:50] LABS: Glucose,Whole Blood 231 mg/dL (75-99)
--- NOTE | 2019-05-27 12:46 | P.PN ---
Subjective Progress Note Date: 05/27/19 This is a 73-year-old female patient presents with complaints of abdominal pain with nausea and vomiting. Patient was recently admitted and discharged for altered mental status change related to elevated ammonia level. Patient reports that she was home and she started to develop dry heaves. Patient reports that the pain did not subside with eating. Patient has a known past medical history of primary liver cancer, diabetes mellitus, GERD, hypertension, myocardial infarction, chronic liver disease, chronic ascites requiring paracentesis his, over the ammonia level history of diverticular disease with ileostomy completed at [facility], anxiety and depression. KUB x-ray completed showing nonspecific abdomen there is a paucity of bowel gas and prominent small bowel loop in the left abdomen. Ileus, enteritis in the differential diagnosis. Partial obstruction also to be considered a correlate clinically. Left basilar atelectasis favored over infiltrate. At this time patient is alert and oriented 3 resting comfortably in bed. Abdomen is soft but tender to palpation. Patient is having stool through ostomy. Surgical services have been consulted. Patient denies chest pain or shortness breath. Patient denies nausea vomiting or diarrhea. Patient denies any urinary burning or frequency. On 05/26/2019 patient is alert and oriented 3. Patient is complaining of some increased nausea today. Diet to remain at full liquid at this time. No plans for surgical intervention per surgical services. Ammonia 26. Patient denies chest pain or shortness breath. patient is complaining of some nausea and vomiting. Patient denies any urinary burning or frequency On 05/27/2018 patient's alert and oriented 3. Patient is still complaining of some nausea. Diet has been advanced to regular diet. Patient denies any chest pain or shortness breath. Patient is complaining of nausea with abdominal discomfort. Patient denies any urinary burning or frequency surgical services are following Objective - Vital Signs Vital signs: Vital Signs Temp 99.2 F 05/27/19 07:00 Pulse 58 L 05/27/19 07:00 Resp 12 05/27/19 07:00 BP 109/58 05/27/19 07:00 Pulse Ox 100 05/27/19 07:00 Intake & Output 05/26/19 05/27/19 05/27/19 18:59 06:59 18:59 Intake Total 1200 Balance 1200 Intake: Oral 1200 Other: Voiding Method Toilet # Voids 3 1 1 - Exam Head normocephalic Neck supple Lungs clear to auscultation bilaterally no wheezing or crackles Heart regular rate and rhythm S1-S2, no rub or gallop Abdomen is soft slightly tender to palpation. Extremities no edema. +1 lower extremity edema Neuro alert and orientated to 3 - Labs CBC & Chem 7: 05/27/19 05:53 05/27/19 05:53 Labs: Abnormal Lab Results - Last 24 Hours (Table) 05/26/19 05/26/19 05/27/19 Range/Units 16:43 20:34 05:53 RBC 2.98 L (3.80-5.40) m/uL Hgb 10.5 L (11.4-16.0) gm/dL Hct 32.0 L (34.0-46.0) % MCV 107.2 H (80.0-100.0) fL MCH 35.1 H (25.0-35.0) pg Plt Count 69 L (150-450) k/uL Sodium (137-145) mmol/L Chloride (98-107) mmol/L Creatinine (0.52-1.04) mg/dL Glucose (74-99) mg/dL POC Glucose (mg/dL) 104 H 240 H (75-99) mg/dL Calcium (8.4-10.2) mg/dL AST (14-36) U/L Alkaline Phosphatase (38-126) U/L Ammonia (<30) umol/L Total Protein (6.3-8.2) g/dL Albumin (3.5-5.0) g/dL 05/27/19 05/27/19 05/27/19 Range/Units 05:53 05:53 07:03 RBC (3.80-5.40) m/uL Hgb (11.4-16.0) gm/dL Hct (34.0-46.0) % MCV (80.0-100.0) fL MCH (25.0-35.0) pg Plt Count (150-450) k/uL Sodium 136 L (137-145) mmol/L Chloride 111 H (98-107) mmol/L Creatinine 1.08 H (0.52-1.04) mg/dL Glucose 155 H (74-99) mg/dL POC Glucose (mg/dL) 151 H (75-99) mg/dL Calcium 8.0 L (8.4-10.2) mg/dL AST 53 H (14-36) U/L Alkaline Phosphatase 259 H (38-126) U/L Ammonia 84 H (<30) umol/L Total Protein 4.9 L (6.3-8.2) g/dL Albumin 2.1 L (3.5-5.0) g/dL 05/27/19 Range/Units 11:47 RBC (3.80-5.40) m/uL Hgb (11.4-16.0) gm/dL Hct (34.0-46.0) % MCV (80.0-100.0) fL MCH (25.0-35.0) pg Plt Count (150-450) k/uL Sodium (137-145) mmol/L Chloride (98-107) mmol/L Creatinine (0.52-1.04) mg/dL Glucose (74-99) mg/dL POC Glucose (mg/dL) 231 H (75-99) mg/dL Calcium (8.4-10.2) mg/dL AST (14-36) U/L Alkaline Phosphatase (38-126) U/L Ammonia (<30) umol/L Total Protein (6.3-8.2) g/dL Albumin (3.5-5.0) g/dL Assessment and Plan Assessment: 1. Abdominal pain with nausea and vomiting. KUB x-ray completed showing nonspecific abdomen. There is paucity of bowel gas and prominent small bowel loop in the left abdomen. Ileus enteritis in the differential diagnoses partial dissection also consideration correlate clinically. Left basilar atelectasis favored over infiltrate. Per surgical services no plans for surgical intervention at this time. Advanced regular diet 2. Hypokalemia. Resolved 3. History of nonalcoholic liver cirrhosis 4. History of hepatocellular carcinoma status post embolization in 2013, 2016 and 2018 5. Chronic kidney disease stage III 6. History of diverticulitis with ileostomy placement at [facility]. Patient has been advised to follow-up on multiple times with surgeon on his [facility]. 7. History of chronic abdominal pain due to recurring abdominal ascites 8. Chronic elevated ammonia level. Patient maintained on lactulose and Xifaxan. Continue to monitor ammonia levels. ammonia level 26 9. Chronic thrombocytopenia due to known liver cancer secondary to chronic liver cirrhosis 10. Insulin-dependent diabetes mellitus 11. Iron deficiency anemia 12. Chronic elevated LFTs due to chronic liver malignancy 13. History of depression DVT prophylaxis SCDs due to, thrombocytopenia. GI prophylaxis Protonix I performed an examination of the patient and discussed their management with the Nurse Practitioner. I have reviewed the Nurse Practitioner's notes and agree with the documented findings and plan of care
[2019-05-27 16:56] LABS: Glucose,Whole Blood 158 mg/dL (75-99)
[2019-05-27 20:30] LABS: Glucose,Whole Blood 97 mg/dL (75-99)
[2019-05-28] MEDS: SODIUM CHLORIDE 0.9% 1,000 ML IV SCH ×3 (01:36→22:43)
[2019-05-28 07:05] LABS: Glucose,Whole Blood 151 mg/dL (75-99)
[2019-05-28 07:23] LABS: Basophils % (A) 1 %; Eosinophils # (A) 0.2 k/uL (0-0.7); Eosinophils % (A) 5 %; HCT 33.2 % (34.0-46.0); HGB 10.4 gm/dL (11.4-16.0); Hypochromasia Slight; Lymphocytes % (A) 26 %; MCH 34.3 pg (25.0-35.0); MCHC 31.4 g/dL (31.0-37.0); MCV 109.2 fL (80.0-100.0); Macrocytosis Marked; Mean Platelet Volume 8.8; Monocytes # (A) 0.2 k/uL (0-1.0); Monocytes % (A) 6 %; Neutrophils # (A) 2.2 k/uL (1.3-7.7); Neutrophils % (A) 58 %; RBC 3.04 m/uL (3.80-5.40); RDW 14.9 % (11.5-15.5); WBC 3.8 k/uL (3.8-10.6)
[2019-05-28 07:35] LABS: Albumin 2.2 g/dL (3.5-5.0); Calcium 7.8 mg/dL (8.4-10.2); Potassium 3.2 mmol/L (3.5-5.1); Total Bilirubin 1.7 mg/dL (0.2-1.3); Total Protein 5.1 g/dL (6.3-8.2)
[2019-05-28] MEDS: SUCRALFATE 1 GM TAB PO SCH ×4 (07:36→22:45)
[2019-05-28] MEDS: PANTOPRAZOLE 40 MG TABLET PO SCH (07:36)
[2019-05-28] MEDS: INSULIN REGULAR 100 UNIT/ML VIAL SQ SCH ×3 (07:36→17:53)
[2019-05-28] MEDS: INSULIN ASPART (NovoLOG) 100 UNIT/ML VIAL SQ SCH ×4 (07:36→22:45)
[2019-05-28 07:50] LABS: Platelet Count 64 k/uL (150-450)
[2019-05-28 08:54] LABS: Poikilocytosis (M) Present
[2019-05-28] MEDS: LACTULOSE 20 GM/30 ML CUP PO SCH ×3 (09:25→22:59)
[2019-05-28] MEDS: SODIUM BICARBONATE TAB 650 MG TAB PO SCH ×2 (09:26→22:46)
[2019-05-28] MEDS: METOPROLOL TARTRATE 12.5 MG TAB PO SCH ×2 (09:26→22:51)
[2019-05-28] MEDS: POTASSIUM CHLORIDE ER 20 MEQ TAB.ER PO SCH (09:26)
[2019-05-28] MEDS: MORPHINE SULFATE ER 15 MG TABLET PO SCH ×2 (09:26→22:46)
[2019-05-28] MEDS: RIFAXIMIN 550 MG TABLET PO SCH ×2 (09:27→22:47)
[2019-05-28] MEDS: DICYCLOMINE 20 MG TAB PO SCH ×3 (09:27→22:47)
[2019-05-28] MEDS: MAGNESIUM OXIDE 400 MG TAB PO SCH ×2 (09:27→22:47)
[2019-05-28] MEDS: buPROPion SR 150 MG TABLET.ER PO SCH (09:27)
[2019-05-28] MEDS: NITROFURANTOIN MONOHYD/M-CRYST 100 MG CAP PO SCH ×2 (09:27→22:47)
[2019-05-28] MEDS: FERROUS SULFATE 325 MG TAB PO SCH ×2 (09:27→22:45)
[2019-05-28] MEDS: CHOLECALCIFEROL 1,000 UNIT TAB PO SCH (09:27)
[2019-05-28] MEDS: INSULIN NPH 300 UNIT/3 ML VIAL SQ SCH ×2 (09:28→22:44)
[2019-05-28] MEDS: ZINC OXIDE 20% OINT 28.4 GM TUBE TOPICAL SCH ×2 (09:33→22:46)
--- NOTE | 2019-05-28 11:32 | P.PN ---
Subjective Progress Note Date: 05/28/19 This is a 73-year-old female patient presents with complaints of abdominal pain with nausea and vomiting. Patient was recently admitted and discharged for altered mental status change related to elevated ammonia level. Patient reports that she was home and she started to develop dry heaves. Patient reports that the pain did not subside with eating. Patient has a known past medical history of primary liver cancer, diabetes mellitus, GERD, hypertension, myocardial infarction, chronic liver disease, chronic ascites requiring paracentesis his, over the ammonia level history of diverticular disease with ileostomy completed at [facility], anxiety and depression. KUB x-ray completed showing nonspecific abdomen there is a paucity of bowel gas and prominent small bowel loop in the left abdomen. Ileus, enteritis in the differential diagnosis. Partial obstruction also to be considered a correlate clinically. Left basilar atelectasis favored over infiltrate. At this time patient is alert and oriented 3 resting comfortably in bed. Abdomen is soft but tender to palpation. Patient is having stool through ostomy. Surgical services have been consulted. Patient denies chest pain or shortness breath. Patient denies nausea vomiting or diarrhea. Patient denies any urinary burning or frequency. On 05/26/2019 patient is alert and oriented 3. Patient is complaining of some increased nausea today. Diet to remain at full liquid at this time. No plans for surgical intervention per surgical services. Ammonia 26. Patient denies chest pain or shortness breath. patient is complaining of some nausea and vomiting. Patient denies any urinary burning or frequency On 05/27/2018 patient's alert and oriented 3. Patient is still complaining of some nausea. Diet has been advanced to regular diet. Patient denies any chest pain or shortness breath. Patient is complaining of nausea with abdominal discomfort. Patient denies any urinary burning or frequency surgical services are following On 05/28/2019 patient was seen and examined on the medical floor she is alert and oriented she is complaining of severe abdominal pain around her stoma she is also complaining of nausea otherwise she denies any complaints there is no fever or chills no headache or dizziness no chest pain no shortness of breath no cough no vomiting, she has liquid stool coming out of her ileostomy and filling her bag, she denies any urinary symptoms Objective - Vital Signs Vital signs: Vital Signs Temp 97.4 F L 05/28/19 07:00 Pulse 54 L 05/28/19 07:00 Resp 12 05/28/19 07:00 BP 94/45 05/28/19 07:00 Pulse Ox 99 05/28/19 07:00 Intake & Output 05/27/19 05/28/19 05/28/19 18:59 06:59 18:59 Intake Total 960 Balance 960 Intake: Intake, IV Titration 0 Amount Sodium Chloride 0.9% 1, 0 000 ml @ 120 mls/hr IV . Q8H20M [facility] Rx#:[id number] Oral 960 Other: Voiding Method Toilet Toilet # Voids 1 1 # Bowel Movements 2 - Exam Head normocephalic and atraumatic Neck supple no JVD no goiter Lungs clear to auscultation bilaterally no wheezing or crackles Heart regular rate and rhythm S1-S2, no rub or gallop Abdomen is soft slightly tender to palpation. Extremities no edema. +1 lower extremity edema Neuro alert and orientated to 3 - Labs CBC & Chem 7: 05/28/19 06:38 05/28/19 06:38 Labs: Abnormal Lab Results - Last 24 Hours (Table) 05/27/19 05/27/19 05/28/19 Range/Units 11:47 16:53 06:38 RBC 3.04 L (3.80-5.40) m/uL Hgb 10.4 L (11.4-16.0) gm/dL Hct 33.2 L (34.0-46.0) % MCV 109.2 H (80.0-100.0) fL Plt Count 64 L (150-450) k/uL Macrocytosis Marked A Potassium (3.5-5.1) mmol/L Chloride (98-107) mmol/L Creatinine (0.52-1.04) mg/dL Glucose (74-99) mg/dL POC Glucose (mg/dL) 231 H 158 H (75-99) mg/dL Calcium (8.4-10.2) mg/dL Total Bilirubin (0.2-1.3) mg/dL AST (14-36) U/L Alkaline Phosphatase (38-126) U/L Ammonia (<30) umol/L Total Protein (6.3-8.2) g/dL Albumin (3.5-5.0) g/dL 05/28/19 05/28/19 05/28/19 Range/Units 06:38 06:38 06:58 RBC (3.80-5.40) m/uL Hgb (11.4-16.0) gm/dL Hct (34.0-46.0) % MCV (80.0-100.0) fL Plt Count (150-450) k/uL Macrocytosis Potassium 3.2 L (3.5-5.1) mmol/L Chloride 109 H (98-107) mmol/L Creatinine 1.09 H (0.52-1.04) mg/dL Glucose 168 H (74-99) mg/dL POC Glucose (mg/dL) 151 H (75-99) mg/dL Calcium 7.8 L (8.4-10.2) mg/dL Total Bilirubin 1.7 H (0.2-1.3) mg/dL AST 49 H (14-36) U/L Alkaline Phosphatase 216 H (38-126) U/L Ammonia 36 H (<30) umol/L Total Protein 5.1 L (6.3-8.2) g/dL Albumin 2.2 L (3.5-5.0) g/dL Assessment and Plan Plan: 1. Abdominal pain with nausea and vomiting. KUB x-ray completed showing nonspecific abdomen. There is paucity of bowel gas and prominent small bowel loop in the left abdomen. Ileus enteritis in the differential diagnoses partial dissection also consideration correlate clinically. Left basilar atelectasis favored over infiltrate. Per surgical services no plans for surgical intervention at this time. Advanced regular diet 2. Hypokalemia. Resolved 3. History of nonalcoholic liver cirrhosis 4. History of hepatocellular carcinoma status post embolization in 2012, 2015 and 2017 5. Chronic kidney disease stage III 6. History of diverticulitis with ileostomy placement at [facility]. Patient has been advised to follow-up on multiple times with surgeon on his [facility]. 7. History of chronic abdominal pain due to recurring abdominal ascites 8. Chronic elevated ammonia level. Patient maintained on lactulose and Xifaxan. Continue to monitor ammonia levels. ammonia level 26 9. Chronic thrombocytopenia due to known liver cancer secondary to chronic liver cirrhosis 10. Insulin-dependent diabetes mellitus 11. Iron deficiency anemia 12. Chronic elevated LFTs due to chronic liver malignancy 13. History of depression DVT prophylaxis SCDs due to, thrombocytopenia. GI prophylaxis Protonix
[2019-05-28 12:10] LABS: Glucose,Whole Blood 305 mg/dL (75-99)
[2019-05-28 17:05] LABS: Glucose,Whole Blood 140 mg/dL (75-99)
[2019-05-28] MEDS ORDERED: POTASSIUM CHLORIDE ER 20 MEQ TAB.ER PO STA (19:00)
[2019-05-28] MEDS: ONDANSETRON 4 MG/2 ML VIAL IVP PRN (19:32)
[2019-05-28 20:30] LABS: Glucose,Whole Blood 106 mg/dL (75-99)
[2019-05-28 22:36] LABS: Glucose,Whole Blood 156 mg/dL (75-99)
[2019-05-29] MEDS: SODIUM CHLORIDE 0.9% 1,000 ML IV SCH ×3 (04:12→22:05)
[2019-05-29 07:15] LABS: Glucose,Whole Blood 99 mg/dL (75-99)
[2019-05-29] MEDS: INSULIN ASPART (NovoLOG) 100 UNIT/ML VIAL SQ SCH ×4 (07:29→20:39)
[2019-05-29] MEDS: INSULIN NPH 300 UNIT/3 ML VIAL SQ SCH ×2 (08:46→21:58)
[2019-05-29] MEDS: INSULIN REGULAR 100 UNIT/ML VIAL SQ SCH ×3 (08:47→17:41)
[2019-05-29] MEDS: LACTULOSE 20 GM/30 ML CUP PO SCH ×3 (08:49→21:58)
[2019-05-29] MEDS: CHOLECALCIFEROL 1,000 UNIT TAB PO SCH (08:51)
[2019-05-29] MEDS: SUCRALFATE 1 GM TAB PO SCH ×4 (08:51→22:03)
[2019-05-29] MEDS: FERROUS SULFATE 325 MG TAB PO SCH ×2 (08:52→22:04)
[2019-05-29] MEDS: PANTOPRAZOLE 40 MG TABLET PO SCH (08:52)
[2019-05-29] MEDS: buPROPion SR 150 MG TABLET.ER PO SCH (08:52)
[2019-05-29] MEDS: MORPHINE SULFATE ER 15 MG TABLET PO SCH ×2 (08:52→22:03)
[2019-05-29] MEDS: MAGNESIUM OXIDE 400 MG TAB PO SCH ×2 (08:52→22:04)
[2019-05-29] MEDS: POTASSIUM CHLORIDE ER 20 MEQ TAB.ER PO SCH (08:52)
[2019-05-29] MEDS: SODIUM BICARBONATE TAB 650 MG TAB PO SCH ×2 (08:52→22:04)
[2019-05-29] MEDS: METOPROLOL TARTRATE 12.5 MG TAB PO SCH ×2 (08:52→20:19)
[2019-05-29] MEDS: DICYCLOMINE 20 MG TAB PO SCH ×3 (08:53→22:03)
[2019-05-29] MEDS: RIFAXIMIN 550 MG TABLET PO SCH ×2 (08:53→22:04)
[2019-05-29] MEDS: ZINC OXIDE 20% OINT 28.4 GM TUBE TOPICAL SCH ×2 (08:57→22:04)
[2019-05-29] MEDS: TORSEMIDE 20 MG TAB PO SCH (09:00)
[2019-05-29 09:20] LABS: Basophils % (A) 0 %; Eosinophils # (A) 0.3 k/uL (0-0.7); Eosinophils % (A) 4 %; HCT 36.6 % (34.0-46.0); HGB 11.7 gm/dL (11.4-16.0); Hypochromasia Slight; Lymphocytes # (A) 1.5 k/uL (1.0-4.8); Lymphocytes % (A) 20 %; MCH 34.7 pg (25.0-35.0); Macrocytosis Marked; Monocytes # (A) 0.3 k/uL (0-1.0); Monocytes % (A) 5 %; Neutrophils # (A) 5.1 k/uL (1.3-7.7); Neutrophils % (A) 69 %; RBC 3.37 m/uL (3.80-5.40); RDW 15.6 % (11.5-15.5); WBC 7.4 k/uL (3.8-10.6)
[2019-05-29 09:32] LABS: Albumin 2.8 g/dL (3.5-5.0); Calcium 8.6 mg/dL (8.4-10.2); Potassium 4.5 mmol/L (3.5-5.1); Total Bilirubin 2.9 mg/dL (0.2-1.3); Total Protein 6.3 g/dL (6.3-8.2)
[2019-05-29 09:33] LABS: MCV 108.4 fL (80.0-100.0); Platelet Count 78 k/uL (150-450)
--- NOTE | 2019-05-29 10:06 | P.PN ---
Subjective Progress Note Date: 05/29/19 This is a 73-year-old female patient presents with complaints of abdominal pain with nausea and vomiting. Patient was recently admitted and discharged for altered mental status change related to elevated ammonia level. Patient reports that she was home and she started to develop dry heaves. Patient reports that the pain did not subside with eating. Patient has a known past medical history of primary liver cancer, diabetes mellitus, GERD, hypertension, myocardial infarction, chronic liver disease, chronic ascites requiring paracentesis his, over the ammonia level history of diverticular disease with ileostomy completed at [facility], anxiety and depression. KUB x-ray completed showing nonspecific abdomen there is a paucity of bowel gas and prominent small bowel loop in the left abdomen. Ileus, enteritis in the differential diagnosis. Partial obstruction also to be considered a correlate clinically. Left basilar atelectasis favored over infiltrate. At this time patient is alert and oriented 3 resting comfortably in bed. Abdomen is soft but tender to palpation. Patient is having stool through ostomy. Surgical services have been consulted. Patient denies chest pain or shortness breath. Patient denies nausea vomiting or diarrhea. Patient denies any urinary burning or frequency. On 05/26/2019 patient is alert and oriented 3. Patient is complaining of some increased nausea today. Diet to remain at full liquid at this time. No plans for surgical intervention per surgical services. Ammonia 26. Patient denies chest pain or shortness breath. patient is complaining of some nausea and vomiting. Patient denies any urinary burning or frequency On 05/27/2018 patient's alert and oriented 3. Patient is still complaining of some nausea. Diet has been advanced to regular diet. Patient denies any chest pain or shortness breath. Patient is complaining of nausea with abdominal discomfort. Patient denies any urinary burning or frequency surgical services are following On 05/28/2019 patient was seen and examined on the medical floor she is alert and oriented she is complaining of severe abdominal pain around her stoma she is also complaining of nausea otherwise she denies any complaints there is no fever or chills no headache or dizziness no chest pain no shortness of breath no cough no vomiting, she has liquid stool coming out of her ileostomy and filling her bag, she denies any urinary symptoms On 05/29/2019 patient's alert and oriented 3. Patient is still complaining of increased abdominal pain. Spoke to surgical services MEDICAL INSURANCE CLAIMS PROCESSOR will reevaluate p atient. Patient denies any nausea or vomiting. Patient is having positive stool output through ostomy. Patient denies chest pain or shortness of breath. Patient denies nausea vomiting or diarrhea. Patient denies any urinary burning or frequency. Objective - Vital Signs Vital signs: Vital Signs Temp 98.7 F 05/29/19 07:00 Pulse 63 05/29/19 07:00 Resp 16 05/29/19 07:00 BP 102/61 05/29/19 07:00 Pulse Ox 98 05/29/19 07:00 Intake & Output 05/28/19 05/29/19 05/29/19 18:59 06:59 18:59 Intake Total 0 Balance 0 Intake: Intake, IV Titration 0 Amount Sodium Chloride 0.9% 1, 0 000 ml @ 120 mls/hr IV . Q8H20M [facility] Rx#:[id number] Other: Voiding Method Toilet Toilet # Voids 1 1 - Exam Head normocephalic Neck supple Lungs clear to auscultation bilaterally no wheezing or crackles Heart regular rate and rhythm S1-S2, no rub or gallop Abdomen is soft slightly tender to palpation. Extremities no edema. +1 lower extremity edema Neuro alert and orientated to 3 - Labs CBC & Chem 7: 05/29/19 08:36 05/29/19 08:36 Labs: Abnormal Lab Results - Last 24 Hours (Table) 05/28/19 05/28/19 05/28/19 Range/Units 12:06 16:54 20:27 RBC (3.80-5.40) m/uL MCV (80.0-100.0) fL RDW (11.5-15.5) % Plt Count (150-450) k/uL Macrocytosis Creatinine (0.52-1.04) mg/dL Glucose (74-99) mg/dL POC Glucose (mg/dL) 305 H 140 H 106 H (75-99) mg/dL Total Bilirubin (0.2-1.3) mg/dL AST (14-36) U/L Alkaline Phosphatase (38-126) U/L Albumin (3.5-5.0) g/dL 05/28/19 05/29/19 05/29/19 Range/Units 22:34 08:36 08:36 RBC 3.37 L (3.80-5.40) m/uL MCV 108.4 H (80.0-100.0) fL RDW 15.6 H (11.5-15.5) % Plt Count 78 L (150-450) k/uL Macrocytosis Marked A Creatinine 1.32 H (0.52-1.04) mg/dL Glucose 163 H (74-99) mg/dL POC Glucose (mg/dL) 156 H (75-99) mg/dL Total Bilirubin 2.9 H (0.2-1.3) mg/dL AST 53 H (14-36) U/L Alkaline Phosphatase 230 H (38-126) U/L Albumin 2.8 L (3.5-5.0) g/dL Assessment and Plan Assessment: 1. Abdominal pain with nausea and vomiting. KUB x-ray completed showing nonspecific abdomen. There is paucity of bowel gas and prominent small bowel loop in the left abdomen. Ileus enteritis in the differential diagnoses partial dissection also consideration correlate clinically. Left basilar atelectasis favored over infiltrate. Per surgical services no plans for surgical intervention at this time. Advanced regular diet. Surgical services MEDICAL INSURANCE CLAIMS PROCESSOR will reevaluate due to continuing abdominal pain 2. Hypokalemia. Resolved 3. History of nonalcoholic liver cirrhosis 4. History of hepatocellular carcinoma status post embolization in 2013, 2016 and 2018 5. Chronic kidney disease stage III 6. History of diverticulitis with ileostomy placement at [facility]. Patient has been advised to follow-up on multiple times with surgeon on his [facility]. 7. History of chronic abdominal pain due to recurring abdominal ascites 8. Chronic elevated ammonia level. Patient maintained on lactulose and Xifaxan. Continue to monitor ammonia levels. ammonia level 26 9. Chronic thrombocytopenia due to known liver cancer secondary to chronic liver cirrhosis 10. Insulin-dependent diabetes mellitus 11. Iron deficiency anemia 12. Chronic elevated LFTs due to chronic liver malignancy 13. History of depression DVT prophylaxis SCDs due to, thrombocytopenia. GI prophylaxis Protonix I performed an examination of the patient and discussed their management with the Nurse Practitioner. I have reviewed the Nurse Practitioner's notes and agree with the documented findings and plan of care
[2019-05-29] MEDS: IOPAMIDOL-300 CONTRAST 30 ML VIAL (ORAL USE) PO PRN ×2 (11:22→12:26)
--- NOTE | 2019-05-29 12:42 | P.PN ---
Subjective Progress Note Date: 05/29/19 CHIEF COMPLAINT: abdominal pain HISTORY OF PRESENT ILLNESS: Patient examined at the bedside. Patient reports abdominal pain has worsened in severity over the last couple days. She feels something "Pulling" in her right lower quadrant. Patient does have a large he rnia present to right lower quadrant, which was not as noticeable during last examination. Patient reports she has had hernia since about a year after her bowel surgery. Patient reports nausea. She is consuming regular diet with no vomiting. PHYSICAL EXAM: VITAL SIGNS: Reviewed. GENERAL: Well-developed in no acute distress. HEENT: No sclera icterus. Extraocular movements grossly intact. Moist buccal mucosa. Head is atraumatic, normocephalic. ABDOMEN: Soft. Nondistended. Large hernia to right lower quadrant. Tenderness with palpation near ostomy. Ileostomy functioning with large amount of liquid stool present. NEUROLOGIC: Alert and oriented. Cranial nerves II through XII grossly intact. ASSESSMENT: 1. Acute on chronic abdominal pain 2. History of diverticulitis with ileostomy placement at [facility] PLAN: Obtain CT scan abdomen/pelvis Further recommendations pending Nurse practitioner note has been reviewed by physician. Signing provider agrees with the documented findings, assessment, and plan of care. Objective - Vital Signs Vital signs: Vital Signs Temp 98.7 F 05/29/19 07:00 Pulse 63 05/29/19 07:00 Resp 16 05/29/19 07:00 BP 102/61 05/29/19 07:00 Pulse Ox 98 05/29/19 07:00 Intake & Output 05/28/19 05/29/19 05/29/19 18:59 06:59 18:59 Intake Total 0 Balance 0 Intake: Intake, IV Titration 0 Amount Sodium Chloride 0.9% 1, 0 000 ml @ 120 mls/hr IV . Q8H20M [facility] Rx#:[id number] Other: Voiding Method Toilet Toilet Toilet # Voids 1 1 - Labs CBC & Chem 7: 05/29/19 08:36 05/29/19 08:36 Labs: Abnormal Lab Results - Last 24 Hours (Table) 05/28/19 05/28/19 05/28/19 Range/Units 16:54 20:27 22:34 RBC (3.80-5.40) m/uL MCV (80.0-100.0) fL RDW (11.5-15.5) % Plt Count (150-450) k/uL Macrocytosis Creatinine (0.52-1.04) mg/dL Glucose (74-99) mg/dL POC Glucose (mg/dL) 140 H 106 H 156 H (75-99) mg/dL Total Bilirubin (0.2-1.3) mg/dL AST (14-36) U/L Alkaline Phosphatase (38-126) U/L Albumin (3.5-5.0) g/dL 05/29/19 05/29/19 Range/Units 08:36 08:36 RBC 3.37 L (3.80-5.40) m/uL MCV 108.4 H (80.0-100.0) fL RDW 15.6 H (11.5-15.5) % Plt Count 78 L (150-450) k/uL Macrocytosis Marked A Creatinine 1.32 H (0.52-1.04) mg/dL Glucose 163 H (74-99) mg/dL POC Glucose (mg/dL) (75-99) mg/dL Total Bilirubin 2.9 H (0.2-1.3) mg/dL AST 53 H (14-36) U/L Alkaline Phosphatase 230 H (38-126) U/L Albumin 2.8 L (3.5-5.0) g/dL
[2019-05-29 12:54] LABS: Glucose,Whole Blood 140 mg/dL (75-99)
--- NOTE | 2019-05-29 13:00 | CT ---
EXAMINATION TYPE: CT abdomen pelvis wo con DATE OF EXAM: 05/29/2019 COMPARISON: 05/21/2019 INDICATION: RLQ pain at ostomy site DLP: 823.4 mGycm, Automated exposure control for dose reduction was used. CONTRAST: 0 mL of Isovue 300. Study performed with Oral Contrast TECHNIQUE: Axial images were obtained from above the diaphragm to the pubic rami in the axial plane a t 5 mm thick sections. Reconstructed images are reviewed on the computer in the coronal plane. FINDINGS: Limited CT sections are obtained the lung bases. The lung bases are clear. CT ABDOMEN: Liver: There is a calcification within the left lobe liver. No discrete masses. There may be some cir rhosis present. Ascites is adjacent to the liver. Spleen: Ascites is adjacent to the spleen. The spleen without contrast appears normal. Splenic hilar varicosities are present. Pancreas: Atrophic Adrenal glands: The adrenal glands are normal. Gallbladder: Surgically absent Kidneys: No masses are evident. No hydronephrosis is present. No cysts are present. No renal stone s are identified. Aorta: Vascular calcification is within the aorta. Inferior vena cava: Normal. CT PELVIS: Free fluid is within the pelvis. There are some prominent loops of bowel within the right lower quadrant ostomy site. Some mild ileus or minimal obstruction is not excluded. Oral contrast does not extend to the ostomy site. Rectal stum p appears normal. Fecal debris is within the rectal stump. Appendix: Not evident Urinary bladder: Normal. Genitourinary structures: Uterus and ovaries are not identified. Osseous structures: No suspicious lytic or sclerotic lesions. Facet degenerative changes within the l umbar spine. IMPRESSIONS: 1. Slight prominence of small bowel loops within the ostomy site. Some mild ileus or mild obstructio n could be considered. Oral contrast extends to the distal small bowel loops but not to the ostomy si te. 2. Cirrhosis of the liver. 3. Ascites
[2019-05-29 16:35] LABS: Glucose,Whole Blood 127 mg/dL (75-99)
[2019-05-29 20:34] LABS: Glucose,Whole Blood 98 mg/dL (75-99)
[2019-05-29 21:59] LABS: Glucose,Whole Blood 105 mg/dL (75-99)
[2019-05-30] MEDS: SODIUM CHLORIDE 0.9% 1,000 ML IV SCH ×4 (04:26→21:51)
[2019-05-30 07:10] LABS: Glucose,Whole Blood 153 mg/dL (75-99)
[2019-05-30 07:44] LABS: Albumin 2.1 g/dL (3.5-5.0); Calcium 7.6 mg/dL (8.4-10.2); Potassium 4.5 mmol/L (3.5-5.1); Total Bilirubin 1.6 mg/dL (0.2-1.3); Total Protein 4.8 g/dL (6.3-8.2)
[2019-05-30 08:01] LABS: Basophils % (A) 0 %; Eosinophils # (A) 0.2 k/uL (0-0.7); Eosinophils % (A) 4 %; HCT 29.6 % (34.0-46.0); Lymphocytes # (A) 1.2 k/uL (1.0-4.8); Lymphocytes % (A) 26 %; MCH 35.5 pg (25.0-35.0); MCHC 33.4 g/dL (31.0-37.0); MCV 106.3 fL (80.0-100.0); Macrocytosis Moderate; Mean Platelet Volume 10.2; Monocytes # (A) 0.3 k/uL (0-1.0); Monocytes % (A) 7 %; Neutrophils # (A) 2.8 k/uL (1.3-7.7); Neutrophils % (A) 61 %; RBC 2.78 m/uL (3.80-5.40); RDW 15.6 % (11.5-15.5); WBC 4.6 k/uL (3.8-10.6)
[2019-05-30] MEDS: INSULIN ASPART (NovoLOG) 100 UNIT/ML VIAL SQ SCH ×4 (08:12→21:50)
[2019-05-30] MEDS: ZINC OXIDE 20% OINT 28.4 GM TUBE TOPICAL SCH ×2 (08:16→21:38)
[2019-05-30] MEDS: MAGNESIUM OXIDE 400 MG TAB PO SCH ×2 (08:17→21:50)
[2019-05-30] MEDS: buPROPion SR 150 MG TABLET.ER PO SCH (08:17)
[2019-05-30] MEDS: FERROUS SULFATE 325 MG TAB PO SCH ×2 (08:17→21:50)
[2019-05-30] MEDS: LACTULOSE 20 GM/30 ML CUP PO SCH ×3 (08:17→21:51)
[2019-05-30] MEDS: CHOLECALCIFEROL 1,000 UNIT TAB PO SCH (08:17)
[2019-05-30] MEDS: PANTOPRAZOLE 40 MG TABLET PO SCH (08:17)
[2019-05-30] MEDS: RIFAXIMIN 550 MG TABLET PO SCH ×2 (08:17→21:50)
[2019-05-30] MEDS: SODIUM BICARBONATE TAB 650 MG TAB PO SCH ×2 (08:17→21:50)
[2019-05-30] MEDS: DICYCLOMINE 20 MG TAB PO SCH ×3 (08:17→21:51)
[2019-05-30] MEDS: SUCRALFATE 1 GM TAB PO SCH ×4 (08:18→21:51)
[2019-05-30] MEDS: POTASSIUM CHLORIDE ER 20 MEQ TAB.ER PO SCH (08:18)
[2019-05-30] MEDS: METOPROLOL TARTRATE 12.5 MG TAB PO SCH ×2 (08:18→21:44)
[2019-05-30] MEDS: MORPHINE SULFATE ER 15 MG TABLET PO SCH ×2 (08:18→21:50)
[2019-05-30] MEDS: INSULIN NPH 300 UNIT/3 ML VIAL SQ SCH ×2 (08:19→21:50)
[2019-05-30] MEDS: INSULIN REGULAR 100 UNIT/ML VIAL SQ SCH ×3 (08:19→17:26)
[2019-05-30 08:21] LABS: Platelet Count 54 k/uL (150-450)
[2019-05-30 08:22] LABS: HGB 9.9 gm/dL (11.4-16.0)
--- NOTE | 2019-05-30 10:06 | P.PN ---
Subjective Progress Note Date: 05/30/19 This is a 73-year-old female patient presents with complaints of abdominal pain with nausea and vomiting. Patient was recently admitted and discharged for altered mental status change related to elevated ammonia level. Patient reports that she was home and she started to develop dry heaves. Patient reports that the pain did not subside with eating. Patient has a known past medical history of primary liver cancer, diabetes mellitus, GERD, hypertension, myocardial infarction, chronic liver disease, chronic ascites requiring paracentesis his, over the ammonia level history of diverticular disease with ileostomy completed at [facility], anxiety and depression. KUB x-ray completed showing nonspecific abdomen there is a paucity of bowel gas and prominent small bowel loop in the left abdomen. Ileus, enteritis in the differential diagnosis. Partial obstruction also to be considered a correlate clinically. Left basilar atelectasis favored over infiltrate. At this time patient is alert and oriented 3 resting comfortably in bed. Abdomen is soft but tender to palpation. Patient is having stool through ostomy. Surgical services have been consulted. Patient denies chest pain or shortness breath. Patient denies nausea vomiting or diarrhea. Patient denies any urinary burning or frequency. On 05/26/2019 patient is alert and oriented 3. Patient is complaining of some increased nausea today. Diet to remain at full liquid at this time. No plans for surgical intervention per surgical services. Ammonia 26. Patient denies chest pain or shortness breath. patient is complaining of some nausea and vomiting. Patient denies any urinary burning or frequency On 05/27/2018 patient's alert and oriented 3. Patient is still complaining of some nausea. Diet has been advanced to regular diet. Patient denies any chest pain or shortness breath. Patient is complaining of nausea with abdominal discomfort. Patient denies any urinary burning or frequency surgical services are following On 05/28/2019 patient was seen and examined on the medical floor she is alert and oriented she is complaining of severe abdominal pain around her stoma she is also complaining of nausea otherwise she denies any complaints there is no fever or chills no headache or dizziness no chest pain no shortness of breath no cough no vomiting, she has liquid stool coming out of her ileostomy and filling her bag, she denies any urinary symptoms On 05/29/2019 patient's alert and oriented 3. Patient is still complaining of increased abdominal pain. Spoke to surgical services DIGITAL SERVICE ENGINEER will reevaluate p atient. Patient denies any nausea or vomiting. Patient is having positive stool output through ostomy. Patient denies chest pain or shortness of breath. Patient denies nausea vomiting or diarrhea. Patient denies any urinary burning or frequency. On 05/30/2018 patient's alert and oriented 3. Patient reports improvement with abdominal pain. Per surgical services no plan for surgery. Patient has been tolerating diet. At this time patient denies chest pain or shortness breath. Patient denies nausea vomiting or diarrhea. Patient denies any urinary burning or frequency Objective - Vital Signs Vital signs: Vital Signs Temp 99.8 F H 05/30/19 07:00 Pulse 56 L 05/30/19 07:00 Resp 16 05/30/19 07:00 BP 104/62 05/30/19 07:00 Pulse Ox 100 05/30/19 07:00 Intake & Output 05/29/19 05/30/19 05/30/19 18:59 06:59 18:59 Intake Total 840 Output Total 9 350 Balance -9 490 Intake: Intake, IV Titration 840 Amount Sodium Chloride 0.9% 1, 840 000 ml @ 120 mls/hr IV . Q8H20M [facility] Rx#:[id number] Output: Urine 5 Stool 350 Other 4 Other: Voiding Method Toilet Toilet # Voids 3 2 - Exam Head normocephalic Neck supple Lungs clear to auscultation bilaterally no wheezing or crackles Heart regular rate and rhythm S1-S2, no rub or gallop Abdomen is soft slightly tender to palpation. Extremities no edema. +1 lower extremity edema Neuro alert and orientated to 3 - Labs CBC & Chem 7: 05/30/19 07:08 05/30/19 07:08 Labs: Abnormal Lab Results - Last 24 Hours (Table) 05/29/19 05/29/19 05/29/19 Range/Units 12:52 16:33 21:56 RBC (3.80-5.40) m/uL Hgb (11.4-16.0) gm/dL Hct (34.0-46.0) % MCV (80.0-100.0) fL MCH (25.0-35.0) pg RDW (11.5-15.5) % Plt Count (150-450) k/uL Sodium (137-145) mmol/L Chloride (98-107) mmol/L Creatinine (0.52-1.04) mg/dL Glucose (74-99) mg/dL POC Glucose (mg/dL) 140 H 127 H 105 H (75-99) mg/dL Calcium (8.4-10.2) mg/dL Total Bilirubin (0.2-1.3) mg/dL Alkaline Phosphatase (38-126) U/L Ammonia (<30) umol/L Total Protein (6.3-8.2) g/dL Albumin (3.5-5.0) g/dL 05/30/19 05/30/19 05/30/19 Range/Units 07:08 07:08 07:08 RBC 2.78 L (3.80-5.40) m/uL Hgb 9.9 L D (11.4-16.0) gm/dL Hct 29.6 L (34.0-46.0) % MCV 106.3 H (80.0-100.0) fL MCH 35.5 H (25.0-35.0) pg RDW 15.6 H (11.5-15.5) % Plt Count 54 L (150-450) k/uL Sodium 136 L (137-145) mmol/L Chloride 109 H (98-107) mmol/L Creatinine 1.40 H (0.52-1.04) mg/dL Glucose 147 H (74-99) mg/dL POC Glucose (mg/dL) (75-99) mg/dL Calcium 7.6 L (8.4-10.2) mg/dL Total Bilirubin 1.6 H (0.2-1.3) mg/dL Alkaline Phosphatase 198 H (38-126) U/L Ammonia 42 H (<30) umol/L Total Protein 4.8 L (6.3-8.2) g/dL Albumin 2.1 L (3.5-5.0) g/dL 05/30/19 Range/Units 07:08 RBC (3.80-5.40) m/uL Hgb (11.4-16.0) gm/dL Hct (34.0-46.0) % MCV (80.0-100.0) fL MCH (25.0-35.0) pg RDW (11.5-15.5) % Plt Count (150-450) k/uL Sodium (137-145) mmol/L Chloride (98-107) mmol/L Creatinine (0.52-1.04) mg/dL Glucose (74-99) mg/dL POC Glucose (mg/dL) 153 H (75-99) mg/dL Calcium (8.4-10.2) mg/dL Total Bilirubin (0.2-1.3) mg/dL Alkaline Phosphatase (38-126) U/L Ammonia (<30) umol/L Total Protein (6.3-8.2) g/dL Albumin (3.5-5.0) g/dL Assessment and Plan Assessment: 1. Abdominal pain with nausea and vomiting. KUB x-ray completed showing nonspecific abdomen. There is paucity of bowel gas and prominent small bowel loop in the left abdomen. Ileus enteritis in the differential diagnoses partial dissection also consideration correlate clinically. Left basilar atelectasis favored over infiltrate. Per surgical services no plans for surgical intervention at this time. Advanced regular diet. Surgical services DIGITAL SERVICE ENGINEER will reevaluate due to continuing abdominal pain 2. Hypokalemia. Resolved 3. History of nonalcoholic liver cirrhosis 4. History of hepatocellular carcinoma status post embolization in 2012, 2016 and 2018 5. Acute on Chronic kidney disease stage III. Creatinine elevated to 1.40. normal saline at 75 6 . History of diverticulitis with ileostomy placement at [facility]. Patient has been advised to follow-up on multiple times with surgeon on his [facility]. 7. History of chronic abdominal pain due to recurring abdominal ascites 8. Chronic elevated ammonia level. Patient maintained on lactulose and Xifaxan. Continue to monitor ammonia levels. ammonia level 26 9. Chronic thrombocytopenia due to known liver cancer secondary to chronic liver cirrhosis 10. Insulin-dependent diabetes mellitus 11. Iron deficiency anemia 12. Chronic elevated LFTs due to chronic liver malignancy 13. History of depression 14. Febrile. Patient having low-grade temps elevated at 99.8. Repeat UA and culture ordered. Chest x-ray ordered patient denies any acute symptoms DVT prophylaxis SCDs due to, thrombocytopenia. GI prophylaxis Protonix I performed an examination of the patient and discussed their management with the Nurse Practitioner. I have reviewed the Nurse Practitioner's notes and agree with the documented findings and plan of care
[2019-05-30 11:33] LABS: Glucose,Whole Blood 206 mg/dL (75-99)
--- NOTE | 2019-05-30 11:40 | P.PN ---
Subjective Progress Note Date: 05/30/19 CHIEF COMPLAINT: abdominal pain HISTORY OF PRESENT ILLNESS: Patient examined at the bedside. Patient denies abdominal pain has improved this morning. Denies nausea or vomiting. Tolerating diet. CT scan reviewed. PHYSICAL EXAM: VITAL SIGNS: Reviewed. GENERAL: Well-developed in no acute distress. HEENT: No sclera icterus. Extraocular movements grossly intact. Moist buccal mucosa. Head is atraumatic, normocephalic. ABDOMEN: Soft. Nondistended. Large hernia to right lower quadrant. Tenderness with palpation near ostomy. Ileostomy functioning with large amount of liquid stool present. NEUROLOGIC: Alert and oriented. Cranial nerves II through XII grossly intact. ASSESSMENT: 1. Acute on chronic abdominal pain 2. History of diverticulitis with ileostomy placement at [facility] 3. Large parastomal hernia PLAN: Recommend abdominal binder for comfort and support (with hole for ostomy) No surgical intervention recommended at this time Nurse practitioner note has been reviewed by physician. Signing provider agrees with the documented findings, assessment, and plan of care. Objective - Vital Signs Vital signs: Vital Signs Temp 99.8 F H 05/30/19 07:00 Pulse 56 L 05/30/19 07:00 Resp 16 05/30/19 07:00 BP 104/62 05/30/19 07:00 Pulse Ox 100 05/30/19 07:00 Intake & Output 05/29/19 05/30/19 05/30/19 18:59 06:59 18:59 Intake Total 840 Output Total 9 350 Balance -9 490 Intake: Intake, IV Titration 840 Amount Sodium Chloride 0.9% 1, 840 000 ml @ 120 mls/hr IV . Q8H20M [facility] Rx#:[id number] Output: Urine 5 Stool 350 Other 4 Other: Voiding Method Toilet Toilet # Voids 3 2 - Labs CBC & Chem 7: 05/30/19 07:08 05/30/19 07:08 Labs: Abnormal Lab Results - Last 24 Hours (Table) 05/29/19 05/29/19 05/29/19 Range/Units 12:52 16:33 21:56 RBC (3.80-5.40) m/uL Hgb (11.4-16.0) gm/dL Hct (34.0-46.0) % MCV (80.0-100.0) fL MCH (25.0-35.0) pg RDW (11.5-15.5) % Plt Count (150-450) k/uL Sodium (137-145) mmol/L Chloride (98-107) mmol/L Creatinine (0.52-1.04) mg/dL Glucose (74-99) mg/dL POC Glucose (mg/dL) 140 H 127 H 105 H (75-99) mg/dL Calcium (8.4-10.2) mg/dL Total Bilirubin (0.2-1.3) mg/dL Alkaline Phosphatase (38-126) U/L Ammonia (<30) umol/L Total Protein (6.3-8.2) g/dL Albumin (3.5-5.0) g/dL 05/30/19 05/30/19 05/30/19 Range/Units 07:08 07:08 07:08 RBC 2.78 L (3.80-5.40) m/uL Hgb 9.9 L D (11.4-16.0) gm/dL Hct 29.6 L (34.0-46.0) % MCV 106.3 H (80.0-100.0) fL MCH 35.5 H (25.0-35.0) pg RDW 15.6 H (11.5-15.5) % Plt Count 54 L (150-450) k/uL Sodium 136 L (137-145) mmol/L Chloride 109 H (98-107) mmol/L Creatinine 1.40 H (0.52-1.04) mg/dL Glucose 147 H (74-99) mg/dL POC Glucose (mg/dL) (75-99) mg/dL Calcium 7.6 L (8.4-10.2) mg/dL Total Bilirubin 1.6 H (0.2-1.3) mg/dL Alkaline Phosphatase 198 H (38-126) U/L Ammonia 42 H (<30) umol/L Total Protein 4.8 L (6.3-8.2) g/dL Albumin 2.1 L (3.5-5.0) g/dL 05/30/19 05/30/19 Range/Units 07:08 11:31 RBC (3.80-5.40) m/uL Hgb (11.4-16.0) gm/dL Hct (34.0-46.0) % MCV (80.0-100.0) fL MCH (25.0-35.0) pg RDW (11.5-15.5) % Plt Count (150-450) k/uL Sodium (137-145) mmol/L Chloride (98-107) mmol/L Creatinine (0.52-1.04) mg/dL Glucose (74-99) mg/dL POC Glucose (mg/dL) 153 H 206 H (75-99) mg/dL Calcium (8.4-10.2) mg/dL Total Bilirubin (0.2-1.3) mg/dL Alkaline Phosphatase (38-126) U/L Ammonia (<30) umol/L Total Protein (6.3-8.2) g/dL Albumin (3.5-5.0) g/dL
--- NOTE | 2019-05-30 14:44 | XR ---
EXAMINATION TYPE: XR chest 2V DATE OF EXAM: 05/30/2019 COMPARISON: Prior chest x-ray 05/26/2019 HISTORY: Abnormal chest x-ray TECHNIQUE: Frontal and lateral views of the chest are obtained. FINDINGS: Persistent blunting of the left costophrenic angle is noted. The aorta is dense. Heart siz e is stable. No pneumothorax. Postop changes are noted in the abdomen. IMPRESSION: Stable exam. Blunting of the left costophrenic angle is stable suggesting minimal basila r atelectasis, possible associated small effusion.
[2019-05-30 17:29] LABS: Glucose,Whole Blood 164 mg/dL (75-99)
[2019-05-30] MEDS: MORPHINE SULFATE 2 MG/ML SYRINGE IVP PRN (23:12)
[2019-05-31] MEDS: SODIUM CHLORIDE 0.9% 1,000 ML IV SCH ×5 (00:17→21:18)
[2019-05-31 06:58] LABS: Glucose,Whole Blood 136 mg/dL (75-99)
[2019-05-31 07:38] LABS: Basophils % (A) 0 %; Eosinophils # (A) 0.2 k/uL (0-0.7); Eosinophils % (A) 4 %; HCT 32.9 % (34.0-46.0); HGB 10.8 gm/dL (11.4-16.0); Lymphocytes # (A) 1.2 k/uL (1.0-4.8); Lymphocytes % (A) 22 %; MCH 35.6 pg (25.0-35.0); MCHC 32.8 g/dL (31.0-37.0); MCV 108.4 fL (80.0-100.0); Macrocytosis Marked; Mean Platelet Volume 9.2; Monocytes # (A) 0.4 k/uL (0-1.0); Monocytes % (A) 7 %; Neutrophils # (A) 3.7 k/uL (1.3-7.7); Neutrophils % (A) 65 %; RBC 3.04 m/uL (3.80-5.40); RDW 15.7 % (11.5-15.5); WBC 5.7 k/uL (3.8-10.6)
[2019-05-31 07:54] LABS: Albumin 2.3 g/dL (3.5-5.0); Calcium 8.1 mg/dL (8.4-10.2); Potassium 4.2 mmol/L (3.5-5.1); Total Bilirubin 1.6 mg/dL (0.2-1.3); Total Protein 5.5 g/dL (6.3-8.2)
[2019-05-31 08:03] LABS: Platelet Count 74 k/uL (150-450)
[2019-05-31] MEDS: INSULIN ASPART (NovoLOG) 100 UNIT/ML VIAL SQ SCH ×4 (08:11→21:17)
[2019-05-31] MEDS: SODIUM BICARBONATE TAB 650 MG TAB PO SCH ×2 (08:23→20:04)
[2019-05-31] MEDS: LACTULOSE 20 GM/30 ML CUP PO SCH ×3 (08:23→20:05)
[2019-05-31] MEDS: MORPHINE SULFATE ER 15 MG TABLET PO SCH ×2 (08:23→20:05)
[2019-05-31] MEDS: FERROUS SULFATE 325 MG TAB PO SCH ×2 (08:23→20:04)
[2019-05-31] MEDS: buPROPion SR 150 MG TABLET.ER PO SCH (08:30)
[2019-05-31] MEDS: CHOLECALCIFEROL 1,000 UNIT TAB PO SCH (08:30)
[2019-05-31] MEDS: SUCRALFATE 1 GM TAB PO SCH ×4 (08:30→20:04)
[2019-05-31] MEDS: INSULIN REGULAR 100 UNIT/ML VIAL SQ SCH ×3 (08:30→17:15)
[2019-05-31] MEDS: RIFAXIMIN 550 MG TABLET PO SCH ×2 (08:30→20:04)
[2019-05-31] MEDS: MAGNESIUM OXIDE 400 MG TAB PO SCH ×2 (08:30→20:05)
[2019-05-31] MEDS: POTASSIUM CHLORIDE ER 20 MEQ TAB.ER PO SCH (08:30)
[2019-05-31] MEDS: PANTOPRAZOLE 40 MG TABLET PO SCH (08:30)
[2019-05-31] MEDS: DICYCLOMINE 20 MG TAB PO SCH ×3 (08:30→21:17)
[2019-05-31] MEDS: TORSEMIDE 20 MG TAB PO SCH (08:30)
[2019-05-31] MEDS: INSULIN NPH 300 UNIT/3 ML VIAL SQ SCH ×2 (08:31→21:17)
[2019-05-31] MEDS: METOPROLOL TARTRATE 12.5 MG TAB PO SCH ×2 (08:31→20:04)
[2019-05-31] MEDS: ZINC OXIDE 20% OINT 28.4 GM TUBE TOPICAL SCH ×2 (08:32→21:17)
[2019-05-31 11:19] LABS: Glucose,Whole Blood 225 mg/dL (75-99)
[2019-05-31] MEDS: MORPHINE SULFATE 2 MG/ML SYRINGE IVP PRN ×2 (11:59→17:16)
--- NOTE | 2019-05-31 12:08 | P.PN ---
Subjective Progress Note Date: 05/31/19 This is a 73-year-old female patient presents with complaints of abdominal pain with nausea and vomiting. Patient was recently admitted and discharged for altered mental status change related to elevated ammonia level. Patient reports that she was home and she started to develop dry heaves. Patient reports that the pain did not subside with eating. Patient has a known past medical history of primary liver cancer, diabetes mellitus, GERD, hypertension, myocardial infarction, chronic liver disease, chronic ascites requiring paracentesis his, over the ammonia level history of diverticular disease with ileostomy completed at [facility], anxiety and depression. KUB x-ray completed showing nonspecific abdomen there is a paucity of bowel gas and prominent small bowel loop in the left abdomen. Ileus, enteritis in the differential diagnosis. Partial obstruction also to be considered a correlate clinically. Left basilar atelectasis favored over infiltrate. At this time patient is alert and oriented 3 resting comfortably in bed. Abdomen is soft but tender to palpation. Patient is having stool through ostomy. Surgical services have been consulted. Patient denies chest pain or shortness breath. Patient denies nausea vomiting or diarrhea. Patient denies any urinary burning or frequency. On 05/26/2019 patient is alert and oriented 3. Patient is complaining of some increased nausea today. Diet to remain at full liquid at this time. No plans for surgical intervention per surgical services. Ammonia 26. Patient denies chest pain or shortness breath. patient is complaining of some nausea and vomiting. Patient denies any urinary burning or frequency On 05/27/2018 patient's alert and oriented 3. Patient is still complaining of some nausea. Diet has been advanced to regular diet. Patient denies any chest pain or shortness breath. Patient is complaining of nausea with abdominal discomfort. Patient denies any urinary burning or frequency surgical services are following On 05/28/2019 patient was seen and examined on the medical floor she is alert and oriented she is complaining of severe abdominal pain around her stoma she is also complaining of nausea otherwise she denies any complaints there is no fever or chills no headache or dizziness no chest pain no shortness of breath no cough no vomiting, she has liquid stool coming out of her ileostomy and filling her bag, she denies any urinary symptoms On 05/29/2019 patient's alert and oriented 3. Patient is still complaining of increased abdominal pain. Spoke to surgical services TELEPHONE INTERCEPTOR OPERATOR will reevaluate p atient. Patient denies any nausea or vomiting. Patient is having positive stool output through ostomy. Patient denies chest pain or shortness of breath. Patient denies nausea vomiting or diarrhea. Patient denies any urinary burning or frequency. On 05/30/2019 patient's alert and oriented 3. Patient reports improvement with abdominal pain. Per surgical services no plan for surgery. Patient has been tolerating diet. At this time patient denies chest pain or shortness breath. Patient denies nausea vomiting or diarrhea. Patient denies any urinary burning or frequency On 05/31/2019 patient's alert and oriented 3. Patient reports having abdominal pain. Patient had increased temperatures throughout night. Repeat UA has been ordered C. diff ordered. Infectious disease consulted. At this time patient denies chest pain or shortness breath. Patient denies any nausea or vomiting. Patient denies any burning with urination. Patient denies any upper respiratory symptoms Objective - Vital Signs Vital signs: Vital Signs Temp 99.7 F H 05/31/19 07:41 Pulse 70 05/31/19 07:41 Resp 17 05/31/19 08:00 BP 111/63 05/31/19 07:41 Pulse Ox 99 05/31/19 07:41 Intake & Output 05/30/19 05/31/19 05/31/19 18:59 06:59 18:59 Intake Total 240 Balance 240 Intake: Oral 240 Other: Voiding Method Toilet # Voids 3 1 - Exam Head normocephalic Neck supple Lungs clear to auscultation bilaterally no wheezing or crackles Heart regular rate and rhythm S1-S2, no rub or gallop Abdomen is soft slightly tender to palpation. Extremities no edema. +1 lower extremity edema Neuro alert and orientated to 3 - Labs CBC & Chem 7: 05/31/19 07:21 05/31/19 07:21 Labs: Abnormal Lab Results - Last 24 Hours (Table) 05/30/19 05/31/19 05/31/19 Range/Units 17:23 06:56 07:21 RBC (3.80-5.40) m/uL Hgb (11.4-16.0) gm/dL Hct (34.0-46.0) % MCV (80.0-100.0) fL MCH (25.0-35.0) pg RDW (11.5-15.5) % Macrocytosis Sodium (137-145) mmol/L Chloride (98-107) mmol/L Carbon Dioxide (22-30) mmol/L Creatinine (0.52-1.04) mg/dL Glucose (74-99) mg/dL POC Glucose (mg/dL) 164 H 136 H (75-99) mg/dL Calcium (8.4-10.2) mg/dL Total Bilirubin (0.2-1.3) mg/dL AST (14-36) U/L Alkaline Phosphatase (38-126) U/L Ammonia 81 H (<30) umol/L Total Protein (6.3-8.2) g/dL Albumin (3.5-5.0) g/dL 05/31/19 05/31/19 05/31/19 Range/Units 07:21 07:21 11:16 RBC 3.04 L (3.80-5.40) m/uL Hgb 10.8 L (11.4-16.0) gm/dL Hct 32.9 L (34.0-46.0) % MCV 108.4 H (80.0-100.0) fL MCH 35.6 H (25.0-35.0) pg RDW 15.7 H (11.5-15.5) % Macrocytosis Marked A Sodium 136 L (137-145) mmol/L Chloride 112 H (98-107) mmol/L Carbon Dioxide 18 L (22-30) mmol/L Creatinine 1.17 H (0.52-1.04) mg/dL Glucose 158 H (74-99) mg/dL POC Glucose (mg/dL) 225 H (75-99) mg/dL Calcium 8.1 L (8.4-10.2) mg/dL Total Bilirubin 1.6 H (0.2-1.3) mg/dL AST 44 H (14-36) U/L Alkaline Phosphatase 263 H (38-126) U/L Ammonia (<30) umol/L Total Protein 5.5 L (6.3-8.2) g/dL Albumin 2.3 L (3.5-5.0) g/dL Microbiology - Last 24 Hours (Table) 05/30/19 11:30 Urine Culture - Preliminary Urine,Clean Catch Assessment and Plan Assessment: 1. Abdominal pain with nausea and vomiting. KUB x-ray completed showing nonspecific abdomen. There is paucity of bowel gas and prominent small bowel loop in the left abdomen. Ileus enteritis in the differential diagnoses partial dissection also consideration correlate clinically. Left basilar atelectasis favored over infiltrate. Per surgical services no plans for surgical intervention at this time. Advanced regular diet. Surgical services TELEPHONE INTERCEPTOR OPERATOR will reevaluate due to continuing abdominal pain 2. Hypokalemia. Resolved 3. History of nonalcoholic liver cirrhosis 4. History of hepatocellular carcinoma status post embolization in 2013, 2016 and 2018 5. Acute on Chronic kidney disease stage III. Creatinine elevated to 1.40. n ormal saline at 75 6 . History of diverticulitis with ileostomy placement at [facility]. Patient has been advised to follow-up on multiple times with surgeon on his [facility]. 7. History of chronic abdominal pain due to recurring abdominal ascites 8. Chronic elevated ammonia level. Patient maintained on lactulose and Xifaxan. Continue to monitor ammonia levels. ammonia level 26 9. Chronic thrombocytopenia due to known liver cancer secondary to chronic liver cirrhosis 10. Insulin-dependent diabetes mellitus 11. Iron deficiency anemia 12. Chronic elevated LFTs due to chronic liver malignancy 13. History of depression 14. Febrile. Patient having low-grade temps elevated at 99.8. Repeat UA and culture ordered. C. diff sample ordered. Infectious disease consulted DVT prophylaxis SCDs due to, thrombocytopenia. GI prophylaxis Protonix I performed an examination of the patient and discussed their management with the Nurse Practitioner. I have reviewed the Nurse Practitioner's notes and agree with the documented findings and plan of care
[2019-05-31 17:01] LABS: Glucose,Whole Blood 84 mg/dL (75-99)
[2019-05-31] MEDS: CIPROFLOXACIN HCL 250 MG TAB PO SCH (20:05)
[2019-05-31 21:09] LABS: Glucose,Whole Blood 215 mg/dL (75-99)
--- NOTE | 2019-05-31 23:16 | P.CONS ---
History of Present Illness - Reason for Consult Consult date: 05/31/19 Fever Requesting physician: Artemio Lea - Chief Complaint Abdominal pain x 1 week - History of Present Illness Patient is a 73 year female with past medical history for diverticulitis status post diverting colostomy, patient presenting to the ER at [facility] on 05/24/2019 which she complains of abdominal pain which has been mostly concentrated around the colostomy describing the pain to be more of a dull aching to sharp 6-7 out of 10 and no radiation with associated nausea vomiting did have some diarrhea, patient who has been afebrile on presentation in the next few days did have a low-grade fever of 100F on 05/30/2019, the patient did have a chest x-ray show some left-sided atelectasis, no pneumonia, blood culture has been obtained which are currently pending, UA was not done however urine cultures were done which is showing gram-negative bacilli patient has been started on oral Cipro infection disease has been consulted for further recommendation regarding antibiotics Patient currently denies rigors or chills no headache chest pain shortness of breath or cough her main symptom has been pain around the colostomy no further vomiting though some nausea persist and no worsening diarrhea, the patient did have CT of abdominal pelvis suspicious for ileus/mild obstruction stool for C. diff came back negative white count has been normal Review of Systems Positive points has been mentioned in HPI rest of the systems are negative Past Medical History Past Medical History: Cancer, Diabetes Mellitus, GERD/Reflux, Hypertension, Liver Disease, Myocardial Infarction (NE), Renal Disease Additional Past Medical History / Comment(s): Hepatocellular liver cancer with chemo immobilization-last time being 2017, ascities with paracentesis's , nonalcoholic liver cirrhosis, chronic pancytopenia, chronic elevated ammonia levels, hepatic encephalopathy, chronic elevated LFTs, chronic abdominal pain, stomach ulcer, diverticular disease with ileostomy, IDDM type II, iron anemia, CKD stage III, nonsustained vtach, UTI, high ammonia levels Last Myocardial Infarction Date:: unk History of Any Multi-Drug Resistant Organisms: MRSA, VRE Year Discovered:: 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 Past Anesthesia/Blood Transfusion Reactions: No Reported Reaction Past Psychological History: Anxiety, Depression Additional Psychological History / Comment(s): pt resides at [facility] [phone] Reformed smoker. . Retired. No experience. No animal exposures Smoking Status: Never smoker Past Alcohol Use History: None Reported Additional Past Alcohol Use History / Comment(s): started smoking 1962 and quit 1965 Past Drug Use History: None Reported - Past Family History Mother History Unknown: Yes Family Medical History: Congestive Heart Failure (CHF) Additional Family Medical History / Comment(s): Mother is 94 yrs old. Father Family Medical History: Chest Pain / Angina Additional Family Medical History / Comment(s): Father is . Medications and Allergies Home Medications Medication Instructions Recorded Confirmed Type Omeprazole [PriLOSEC] 20 mg PO BID 10/23/18 05/24/19 History Sucralfate [Carafate] 1 gm PO QID 10/23/18 05/24/19 History Insulin Regular, Human [NovoLIN R] 10 unit SQ AC-TID 10/24/18 05/24/19 History buPROPion SR [Wellbutrin SR] 150 mg PO DAILY #30 tablet.er 12/21/18 05/24/19 Rx Cholecalciferol [Vitamin D3 (25 4,000 unit PO DAILY 01/16/19 05/24/19 History Mcg = 1000 Iu)] Ferrous Sulfate [Iron (65 MG 325 mg PO BID 01/31/19 05/24/19 History Elemental)] Insulin NPH [humuLIN N] 18 unit SQ BID vial 02/06/19 05/24/19 Rx Dicyclomine [Bentyl] 20 mg PO TID 30 Days #180 cap 03/31/19 05/24/19 Rx Lactulose [Cephulac] 45 gm PO TID 04/07/19 05/24/19 History Rifaximin [Xifaxan] 550 mg PO BID tablet 04/17/19 05/24/19 Rx Sodium Bicarbonate Tab 1,300 mg PO BID tab 04/17/19 05/24/19 Rx Torsemide [Demadex] 20 mg PO Q48H 30 Days #30 tab 04/17/19 05/24/19 Rx Potassium Chloride [Klor-Con 20] 20 meq PO DAILY 04/21/19 05/24/19 History Metoprolol Tartrate [Lopressor] 12.5 mg PO BID 04/30/19 05/24/19 History Magnesium Oxide [William] 500 mg PO BID #6 tablet 05/05/19 05/24/19 Rx Zinc Oxide 20% Oint 1 applic TOPICAL BID #1 tube 05/05/19 05/24/19 Rx Morphine Sulfate [Ms Contin] 15 mg PO BID 05/15/19 05/24/19 History Nitrofurantoin Monohyd/M-Cryst 100 mg PO BID 7 Days #14 cap 05/22/19 05/24/19 Rx [Macrobid] Allergies Allergy/AdvReac Type Severity Reaction Status Date / Time amlodipine Allergy Rash/Hives Verified 05/24/19 12:43 oxycodone Allergy Rash/Hives Verified 05/24/19 12:43 Penicillins Allergy Rash/Hives Verified 05/24/19 12:43 hydromorphone [From Dilaudid] AdvReac Mild tactile Verified 05/24/19 12:43 disturbance GREG Inhibitors AdvReac Cough Verified 05/24/19 12:43 sodium dodecyclbenzene Allergy Rash/Hives Uncoded 05/24/19 12:29 sulfonate Physical Exam Vitals: Vital Signs Temp Pulse Pulse Resp BP Pulse Ox 05/31/19 15:00 99.8 F H 66 15 106/63 99 05/31/19 08:00 17 05/31/19 07:41 99.7 F H 70 111/63 99 05/31/19 01:05 99.2 F 66 16 94/54 97 05/30/19 20:20 100.0 F H 58 L 16 97/58 98 Intake and Output 05/31/19 05/31/19 05/31/19 06:59 14:59 22:59 Intake Total 720 Balance 720 Intake: Oral 720 Other: # Voids 3 # Bowel Movements 3 1 Weight 92.941 kg GENERAL DESCRIPTION: An elderly female lying in bed, no distress. No tachypnea or accessory muscle of respiration use. HEENT: Shows Pallor , no scleral icterus. Oral mucous membrane is dry. No pharyngeal erythema or thrush NECK: Trachea central, no thyromegaly. LUNGS: Unlabored breathing. Clear to auscultation anteriorly. No wheeze or crackle. HEART: S1, S2, regular rate and rhythm. No loud murmur ABDOMEN: Soft, mild peristomal tenderness , no guarding or rigidity, no organomegaly EXTREMITIES: No edema of feet. SKIN: No rash, no masses palpable. NEUROLOGICAL: The patient is awake, alert, oriented x3, mood and affect normal. Results CBC & Chem 7: 05/31/19 07:21 05/31/19 07:21 Labs: Abnormal Lab Results - Last 24 Hours (Table) 05/30/19 05/31/19 05/31/19 Range/Units 17:23 06:56 07:21 RBC (3.80-5.40) m/uL Hgb (11.4-16.0) gm/dL Hct (34.0-46.0) % MCV (80.0-100.0) fL MCH (25.0-35.0) pg RDW (11.5-15.5) % Plt Count (150-450) k/uL Macrocytosis Sodium (137-145) mmol/L Chloride (98-107) mmol/L Carbon Dioxide (22-30) mmol/L Creatinine (0.52-1.04) mg/dL Glucose (74-99) mg/dL POC Glucose (mg/dL) 164 H 136 H (75-99) mg/dL Calcium (8.4-10.2) mg/dL Total Bilirubin (0.2-1.3) mg/dL AST (14-36) U/L Alkaline Phosphatase (38-126) U/L Ammonia 81 H (<30) umol/L Total Protein (6.3-8.2) g/dL Albumin (3.5-5.0) g/dL 05/31/19 05/31/19 05/31/19 Range/Units 07:21 07:21 11:16 RBC 3.04 L (3.80-5.40) m/uL Hgb 10.8 L (11.4-16.0) gm/dL Hct 32.9 L (34.0-46.0) % MCV 108.4 H (80.0-100.0) fL MCH 35.6 H (25.0-35.0) pg RDW 15.7 H (11.5-15.5) % Plt Count 74 L (150-450) k/uL Macrocytosis Marked A Sodium 136 L (137-145) mmol/L Chloride 112 H (98-107) mmol/L Carbon Dioxide 18 L (22-30) mmol/L Creatinine 1.17 H (0.52-1.04) mg/dL Glucose 158 H (74-99) mg/dL POC Glucose (mg/dL) 225 H (75-99) mg/dL Calcium 8.1 L (8.4-10.2) mg/dL Total Bilirubin 1.6 H (0.2-1.3) mg/dL AST 44 H (14-36) U/L Alkaline Phosphatase 263 H (38-126) U/L Ammonia (<30) umol/L Total Protein 5.5 L (6.3-8.2) g/dL Albumin 2.3 L (3.5-5.0) g/dL Microbiology - Last 24 Hours (Table) 05/30/19 11:30 Urine Culture - Preliminary Urine,Clean Catch Gram Neg Bacilli Assessment and Plan Assessment: 1-patient presented to hospital with abdominal pain which has been mostly because it to her colostomy with evidence of small bowel loop around the ostomy site had with question of ileus versus mild obstruction now with evidence of low-grade fever more likely seems to gi source however the patient to have a gram-negative in the urine underlying uti not entirely excluded currently with no other clinical focus of infection no respiratory symptoms chest x-ray negative for any pneumonia no evidence of any cellulitis or joint swelling 2-patient with antibiotic ALLERGIES to penicillin that would limit the number of antibiotic safe to use Plan: 1-Cipro 250 by mouth every 12hr to continue while waiting for the urine culture to be finalized 2-incentive spirometry every hour while awake we will follow on clinical condition and culture to further adjust medication if needed Thank you for this consultation will follow this patient along with you
[2019-06-01] MEDS: SODIUM CHLORIDE 0.9% 1,000 ML IV SCH ×4 (02:31→12:21)
[2019-06-01 07:00] LABS: Glucose,Whole Blood 85 mg/dL (75-99)
[2019-06-01 07:22] LABS: Basophils % (A) 0 %; Eosinophils # (A) 0.2 k/uL (0-0.7); Eosinophils % (A) 4 %; HCT 30.4 % (34.0-46.0); HGB 10.1 gm/dL (11.4-16.0); Lymphocytes # (A) 1.1 k/uL (1.0-4.8); Lymphocytes % (A) 25 %; MCH 35.7 pg (25.0-35.0); MCHC 33.4 g/dL (31.0-37.0); Macrocytosis Moderate; Mean Platelet Volume 9.6; Monocytes # (A) 0.4 k/uL (0-1.0); Monocytes % (A) 9 %; Neutrophils # (A) 2.7 k/uL (1.3-7.7); Neutrophils % (A) 59 %; RBC 2.84 m/uL (3.80-5.40); RDW 15.7 % (11.5-15.5); WBC 4.5 k/uL (3.8-10.6)
[2019-06-01 07:30] LABS: Platelet Count 64 k/uL (150-450)
[2019-06-01 07:34] LABS: Albumin 2.1 g/dL (3.5-5.0); Calcium 7.6 mg/dL (8.4-10.2); Potassium 3.2 mmol/L (3.5-5.1); Total Protein 4.9 g/dL (6.3-8.2)
[2019-06-01] MEDS: INSULIN ASPART (NovoLOG) 100 UNIT/ML VIAL SQ SCH ×4 (07:35→21:53)
[2019-06-01 08:14] LABS: Glucose,Whole Blood 104 mg/dL (75-99)
[2019-06-01] MEDS: MAGNESIUM OXIDE 400 MG TAB PO SCH ×2 (08:15→21:45)
[2019-06-01] MEDS: CHOLECALCIFEROL 1,000 UNIT TAB PO SCH (08:15)
[2019-06-01] MEDS: MORPHINE SULFATE ER 15 MG TABLET PO SCH ×2 (08:15→21:45)
[2019-06-01] MEDS: FERROUS SULFATE 325 MG TAB PO SCH ×2 (08:15→21:44)
[2019-06-01] MEDS: CIPROFLOXACIN HCL 250 MG TAB PO SCH (08:15)
[2019-06-01] MEDS: SUCRALFATE 1 GM TAB PO SCH ×4 (08:16→21:45)
[2019-06-01] MEDS: SODIUM BICARBONATE TAB 650 MG TAB PO SCH ×2 (08:16→21:45)
[2019-06-01] MEDS: PANTOPRAZOLE 40 MG TABLET PO SCH (08:16)
[2019-06-01] MEDS: POTASSIUM CHLORIDE ER 20 MEQ TAB.ER PO SCH ×3 (08:16→11:26)
[2019-06-01] MEDS: METOPROLOL TARTRATE 12.5 MG TAB PO SCH ×2 (08:16→21:45)
[2019-06-01] MEDS: DICYCLOMINE 20 MG TAB PO SCH ×3 (08:17→21:45)
[2019-06-01] MEDS: buPROPion SR 150 MG TABLET.ER PO SCH (08:17)
[2019-06-01] MEDS: ZINC OXIDE 20% OINT 28.4 GM TUBE TOPICAL SCH ×2 (08:19→21:53)
[2019-06-01] MEDS: LACTULOSE 20 GM/30 ML CUP PO SCH ×3 (08:19→21:45)
[2019-06-01] MEDS: INSULIN NPH 300 UNIT/3 ML VIAL SQ SCH ×2 (08:20→21:49)
[2019-06-01] MEDS: INSULIN REGULAR 100 UNIT/ML VIAL SQ SCH ×3 (08:22→17:38)
[2019-06-01] MEDS ORDERED: Potassium Replacement Protocol 1 EACH MISC MISCELLANE PRN (08:50)
[2019-06-01 11:46] LABS: Glucose,Whole Blood 109 mg/dL (75-99)
--- NOTE | 2019-06-01 11:57 | P.PN ---
Subjective Progress Note Date: 06/01/19 This is a 73-year-old female patient presents with complaints of abdominal pain with nausea and vomiting. Patient was recently admitted and discharged for altered mental status change related to elevated ammonia level. Patient reports that she was home and she started to develop dry heaves. Patient reports that the pain did not subside with eating. Patient has a known past medical history of primary liver cancer, diabetes mellitus, GERD, hypertension, myocardial infarction, chronic liver disease, chronic ascites requiring paracentesis his, over the ammonia level history of diverticular disease with ileostomy completed at [facility], anxiety and depression. KUB x-ray completed showing nonspecific abdomen there is a paucity of bowel gas and prominent small bowel loop in the left abdomen. Ileus, enteritis in the differential diagnosis. Partial obstruction also to be considered a correlate clinically. Left basilar atelectasis favored over infiltrate. At this time patient is alert and oriented 3 resting comfortably in bed. Abdomen is soft but tender to palpation. Patient is having stool through ostomy. Surgical services have been consulted. Patient denies chest pain or shortness breath. Patient denies nausea vomiting or diarrhea. Patient denies any urinary burning or frequency. On 05/26/2019 patient is alert and oriented 3. Patient is complaining of some increased nausea today. Diet to remain at full liquid at this time. No plans for surgical intervention per surgical services. Ammonia 26. Patient denies chest pain or shortness breath. patient is complaining of some nausea and vomiting. Patient denies any urinary burning or frequency On 05/27/2018 patient's alert and oriented 3. Patient is still complaining of some nausea. Diet has been advanced to regular diet. Patient denies any chest pain or shortness breath. Patient is complaining of nausea with abdominal discomfort. Patient denies any urinary burning or frequency surgical services are following On 05/28/2019 patient was seen and examined on the medical floor she is alert and oriented she is complaining of severe abdominal pain around her stoma she is also complaining of nausea otherwise she denies any complaints there is no fever or chills no headache or dizziness no chest pain no shortness of breath no cough no vomiting, she has liquid stool coming out of her ileostomy and filling her bag, she denies any urinary symptoms On 05/29/2019 patient's alert and oriented 3. Patient is still complaining of increased abdominal pain. Spoke to surgical services [employer] will reevaluate p atient. Patient denies any nausea or vomiting. Patient is having positive stool output through ostomy. Patient denies chest pain or shortness of breath. Patient denies nausea vomiting or diarrhea. Patient denies any urinary burning or frequency. On 05/30/2019 patient's alert and oriented 3. Patient reports improvement with abdominal pain. Per surgical services no plan for surgery. Patient has been tolerating diet. At this time patient denies chest pain or shortness breath. Patient denies nausea vomiting or diarrhea. Patient denies any urinary burning or frequency On 05/31/2019 patient's alert and oriented 3. Patient reports having abdominal pain. Patient had increased temperatures throughout night. Repeat UA has been ordered C. diff ordered. Infectious disease consulted. At this time patient denies chest pain or shortness breath. Patient denies any nausea or vomiting. Patient denies any burning with urination. Patient denies any upper respiratory symptoms On 06/01/2019 patient's alert and oriented 3. Patient's urine culture positive for E. coli. Infectious disease following. Patient maintained on Cipro. Patient still having low-grade temps 99.8. Patient's ammonia level 32. Patient denies chest pain or shortness of breath. Patient is still having some abdominal discomfort surgical services have signed off. Patient denies any urinary burning or frequency Objective - Vital Signs Vital signs: Vital Signs Temp 98.4 F 06/01/19 07:27 Pulse 62 06/01/19 08:31 Resp 16 06/01/19 07:27 BP 93/50 06/01/19 07:27 Pulse Ox 93 L 06/01/19 07:27 Intake & Output 05/31/19 06/01/19 06/01/19 18:59 06:59 18:59 Intake Total 960 1530 320 Balance 960 1530 320 Weight 92.941 kg Intake: Intake, IV Titration 750 Amount Sodium Chloride 0.9% 1, 750 000 ml @ 75 mls/hr IV . [id number] [facility] Rx#:[id number] Oral 960 780 320 Other: Voiding Method Toilet # Voids 3 3 1 # Bowel Movements 1 - Exam Head normocephalic Neck supple Lungs clear to auscultation bilaterally no wheezing or crackles Heart regular rate and rhythm S1-S2, no rub or gallop Abdomen is soft slightly tender to palpation. Right upper quadrant ostomy in place Extremities no edema. Neuro alert and orientated to 3 - Labs CBC & Chem 7: 06/01/19 07:02 06/01/19 07:02 Labs: Abnormal Lab Results - Last 24 Hours (Table) 05/31/19 05/31/19 06/01/19 Range/Units 07:21 21:08 07:02 RBC 3.04 L (3.80-5.40) m/uL Hgb 10.8 L (11.4-16.0) gm/dL Hct 32.9 L (34.0-46.0) % MCV 108.4 H (80.0-100.0) fL MCH 35.6 H (25.0-35.0) pg RDW 15.7 H (11.5-15.5) % Plt Count 74 L (150-450) k/uL Macrocytosis Marked A Potassium (3.5-5.1) mmol/L Chloride (98-107) mmol/L Carbon Dioxide (22-30) mmol/L Creatinine (0.52-1.04) mg/dL POC Glucose (mg/dL) 215 H (75-99) mg/dL Calcium (8.4-10.2) mg/dL Total Bilirubin (0.2-1.3) mg/dL Alkaline Phosphatase (38-126) U/L Ammonia 32 H (<30) umol/L Total Protein (6.3-8.2) g/dL Albumin (3.5-5.0) g/dL 06/01/19 06/01/19 06/01/19 Range/Units 07:02 07:02 08:13 RBC 2.84 L (3.80-5.40) m/uL Hgb 10.1 L (11.4-16.0) gm/dL Hct 30.4 L (34.0-46.0) % MCV 107.0 H (80.0-100.0) fL MCH 35.7 H (25.0-35.0) pg RDW 15.7 H (11.5-15.5) % Plt Count 64 L (150-450) k/uL Macrocytosis Potassium 3.2 L (3.5-5.1) mmol/L Chloride 112 H (98-107) mmol/L Carbon Dioxide 19 L (22-30) mmol/L Creatinine 1.12 H (0.52-1.04) mg/dL POC Glucose (mg/dL) 104 H (75-99) mg/dL Calcium 7.6 L (8.4-10.2) mg/dL Total Bilirubin 2.0 H (0.2-1.3) mg/dL Alkaline Phosphatase 192 H (38-126) U/L Ammonia (<30) umol/L Total Protein 4.9 L (6.3-8.2) g/dL Albumin 2.1 L (3.5-5.0) g/dL 06/01/19 Range/Units 11:44 RBC (3.80-5.40) m/uL Hgb (11.4-16.0) gm/dL Hct (34.0-46.0) % MCV (80.0-100.0) fL MCH (25.0-35.0) pg RDW (11.5-15.5) % Plt Count (150-450) k/uL Macrocytosis Potassium (3.5-5.1) mmol/L Chloride (98-107) mmol/L Carbon Dioxide (22-30) mmol/L Creatinine (0.52-1.04) mg/dL POC Glucose (mg/dL) 109 H (75-99) mg/dL Calcium (8.4-10.2) mg/dL Total Bilirubin (0.2-1.3) mg/dL Alkaline Phosphatase (38-126) U/L Ammonia (<30) umol/L Total Protein (6.3-8.2) g/dL Albumin (3.5-5.0) g/dL Microbiology - Last 24 Hours (Table) 05/30/19 11:30 Urine Culture - Final Urine,Clean Catch Escherichia coli Assessment and Plan Assessment: 1. Abdominal pain with nausea and vomiting. KUB x-ray completed showing nonspecific abdomen. There is paucity of bowel gas and prominent small bowel loop in the left abdomen. Ileus enteritis in the differential diagnoses partial dissection also consideration correlate clinically. Left basilar atelectasis favored over infiltrate. Per surgical services no plans for surgical inte rvention at this time. Advanced regular diet. Surgical services [employer] will reevaluate due to continuing abdominal pain 2. Hypokalemia. Resolved 3. History of nonalcoholic liver cirrhosis 4. History of hepatocellular carcinoma status post embolization in 2013, 2016 and 2018 5. Acute on Chronic kidney disease stage III. Creatinine elevated to 1.40. normal saline at 75 6 . History of diverticulitis with ileostomy placement at [facility]. Patient has been advised to follow-up on multiple times with surgeon on his [facility]. 7. History of chronic abdominal pain due to recurring abdominal ascites 8. Chronic elevated ammonia level. Patient maintained on lactulose and Xifaxan. Continue to monitor ammonia levels. ammonia level 26 9. Chronic thrombocytopenia due to known liver cancer secondary to chronic liver cirrhosis 10. Insulin-dependent diabetes mellitus 11. Iron deficiency anemia 12. Chronic elevated LFTs due to chronic liver malignancy 13. History of depression 14. Febrile. Patient having low-grade temps elevated at 99.8. Repeat UA and culture ordered. C. diff sample ordered. Infectious disease consulted. Urine culture growing E. coli. Per infectious disease maintain patient on Cipro DVT prophylaxis SCDs due to, thrombocytopenia. GI prophylaxis Protonix I performed an examination of the patient and discussed their management with the Nurse Practitioner. I have reviewed the Nurse Practitioner's notes and agree with the documented findings and plan of care
--- NOTE | 2019-06-01 13:47 | PN ---
PROGRESS NOTE DATE OF SERVICE: 06/01/2019 REASON FOR FOLLOWUP: Fever and possible UTI. INTERVAL HISTORY: The patient did have a low-grade fever of 99.8 around March 23. The patient is afebrile since then. The patient has been complaining of pain around the colostomy site. Some nausea but no vomiting. No chest pain, shortness of breath or cough. PHYSICAL EXAMINATION: Blood pressure 93/50 with a pulse of 80, temperature 98.4, she is 93% on room air. General description is an elderly female, lying in bed in no distress. RESPIRATORY SYSTEM: Unlabored breathing, clear to auscultation anteriorly. HEART: S1, S2. Regular rate and rhythm. ABDOMEN: Soft, no guarding, no rigidity. EXTREMITIES: No edema of the feet. LABS: Urine will be finalized with the E coli that is resistant to Cipro. Hemoglobin is 10, white count of 4.5, BUN of 12, creatinine is 1.12. DIAGNOSTIC IMPRESSION AND PLAN: Patient with fever, low-grade, possible urinary tract infection with an E coli resistant to Cipro and cefazolin. We will start the patient on Rocephin 1 g daily and monitor clinical course closely. Continue supportive care. MMODL / IJN: [id number] /
[2019-06-01] MEDS: MORPHINE SULFATE 2 MG/ML SYRINGE IVP PRN ×2 (14:58→21:46)
[2019-06-01 17:41] LABS: Glucose,Whole Blood 111 mg/dL (75-99)
[2019-06-01 20:54] LABS: Glucose,Whole Blood 91 mg/dL (75-99)
[2019-06-02] MEDS: SODIUM CHLORIDE 0.9% 1,000 ML IV SCH ×5 (01:55→08:06)
[2019-06-02 07:02] LABS: Glucose,Whole Blood 94 mg/dL (75-99)
[2019-06-02] MEDS: INSULIN ASPART (NovoLOG) 100 UNIT/ML VIAL SQ SCH ×4 (07:55→21:44)
[2019-06-02] MEDS: INSULIN REGULAR 100 UNIT/ML VIAL SQ SCH ×3 (08:02→17:02)
[2019-06-02] MEDS: LACTULOSE 20 GM/30 ML CUP PO SCH ×3 (08:02→21:50)
[2019-06-02] MEDS: FERROUS SULFATE 325 MG TAB PO SCH ×2 (08:03→21:44)
[2019-06-02] MEDS: CHOLECALCIFEROL 1,000 UNIT TAB PO SCH (08:03)
[2019-06-02] MEDS: MORPHINE SULFATE ER 15 MG TABLET PO SCH ×2 (08:03→21:44)
[2019-06-02] MEDS: POTASSIUM CHLORIDE ER 20 MEQ TAB.ER PO SCH (08:03)
[2019-06-02] MEDS: SUCRALFATE 1 GM TAB PO SCH ×4 (08:03→21:44)
[2019-06-02] MEDS: MAGNESIUM OXIDE 400 MG TAB PO SCH ×2 (08:04→21:44)
[2019-06-02] MEDS: SODIUM BICARBONATE TAB 650 MG TAB PO SCH ×2 (08:04→21:44)
[2019-06-02] MEDS: TORSEMIDE 20 MG TAB PO SCH (08:04)
[2019-06-02] MEDS: PANTOPRAZOLE 40 MG TABLET PO SCH (08:04)
[2019-06-02] MEDS: DICYCLOMINE 20 MG TAB PO SCH ×3 (08:04→21:44)
[2019-06-02] MEDS: buPROPion SR 150 MG TABLET.ER PO SCH (08:05)
[2019-06-02] MEDS: ZINC OXIDE 20% OINT 28.4 GM TUBE TOPICAL SCH ×2 (08:05→21:50)
[2019-06-02] MEDS: METOPROLOL TARTRATE 12.5 MG TAB PO SCH ×2 (08:07→21:44)
[2019-06-02] MEDS: INSULIN NPH 300 UNIT/3 ML VIAL SQ SCH ×2 (08:58→21:45)
[2019-06-02] MEDS: MORPHINE SULFATE 2 MG/ML SYRINGE IVP PRN ×2 (09:19→15:52)
[2019-06-02 09:34] LABS: Basophils % (A) 0 %; Eosinophils # (A) 0.2 k/uL (0-0.7); Eosinophils % (A) 5 %; HCT 33.7 % (34.0-46.0); HGB 10.7 gm/dL (11.4-16.0); Hypochromasia Slight; Lymphocytes # (A) 0.7 k/uL (1.0-4.8); Lymphocytes % (A) 15 %; MCH 35.1 pg (25.0-35.0); MCHC 31.9 g/dL (31.0-37.0); Macrocytosis Marked; Mean Platelet Volume 8.7; Monocytes # (A) 0.4 k/uL (0-1.0); Monocytes % (A) 8 %; Neutrophils # (A) 3.3 k/uL (1.3-7.7); Neutrophils % (A) 69 %; RBC 3.06 m/uL (3.80-5.40); RDW 14.8 % (11.5-15.5); WBC 4.8 k/uL (3.8-10.6)
[2019-06-02 09:50] LABS: Platelet Count 71 k/uL (150-450)
[2019-06-02 09:52] LABS: Albumin 2.3 g/dL (3.5-5.0); Calcium 7.9 mg/dL (8.4-10.2); Potassium 4.1 mmol/L (3.5-5.1); Total Bilirubin 1.8 mg/dL (0.2-1.3); Total Protein 5.5 g/dL (6.3-8.2)
--- NOTE | 2019-06-02 10:52 | P.PN ---
Subjective Progress Note Date: 06/02/19 This is a 73-year-old female patient presents with complaints of abdominal pain with nausea and vomiting. Patient was recently admitted and discharged for altered mental status change related to elevated ammonia level. Patient reports that she was home and she started to develop dry heaves. Patient reports that the pain did not subside with eating. Patient has a known past medical history of primary liver cancer, diabetes mellitus, GERD, hypertension, myocardial infarction, chronic liver disease, chronic ascites requiring paracentesis his, over the ammonia level history of diverticular disease with ileostomy completed at [facility], anxiety and depression. KUB x-ray completed showing nonspecific abdomen there is a paucity of bowel gas and prominent small bowel loop in the left abdomen. Ileus, enteritis in the differential diagnosis. Partial obstruction also to be considered a correlate clinically. Left basilar atelectasis favored over infiltrate. At this time patient is alert and oriented 3 resting comfortably in bed. Abdomen is soft but tender to palpation. Patient is having stool through ostomy. Surgical services have been consulted. Patient denies chest pain or shortness breath. Patient denies nausea vomiting or diarrhea. Patient denies any urinary burning or frequency. On 05/26/2019 patient is alert and oriented 3. Patient is complaining of some increased nausea today. Diet to remain at full liquid at this time. No plans for surgical intervention per surgical services. Ammonia 26. Patient denies chest pain or shortness breath. patient is complaining of some nausea and vomiting. Patient denies any urinary burning or frequency On 05/27/2018 patient's alert and oriented 3. Patient is still complaining of some nausea. Diet has been advanced to regular diet. Patient denies any chest pain or shortness breath. Patient is complaining of nausea with abdominal discomfort. Patient denies any urinary burning or frequency surgical services are following On 05/28/2019 patient was seen and examined on the medical floor she is alert and oriented she is complaining of severe abdominal pain around her stoma she is also complaining of nausea otherwise she denies any complaints there is no fever or chills no headache or dizziness no chest pain no shortness of breath no cough no vomiting, she has liquid stool coming out of her ileostomy and filling her bag, she denies any urinary symptoms On 05/29/2019 patient's alert and oriented 3. Patient is still complaining of increased abdominal pain. Spoke to surgical services STRAP SETTER will reevaluate p atient. Patient denies any nausea or vomiting. Patient is having positive stool output through ostomy. Patient denies chest pain or shortness of breath. Patient denies nausea vomiting or diarrhea. Patient denies any urinary burning or frequency. On 05/30/2019 patient's alert and oriented 3. Patient reports improvement with abdominal pain. Per surgical services no plan for surgery. Patient has been tolerating diet. At this time patient denies chest pain or shortness breath. Patient denies nausea vomiting or diarrhea. Patient denies any urinary burning or frequency On 05/31/2019 patient's alert and oriented 3. Patient reports having abdominal pain. Patient had increased temperatures throughout night. Repeat UA has been ordered C. diff ordered. Infectious disease consulted. At this time patient denies chest pain or shortness breath. Patient denies any nausea or vomiting. Patient denies any burning with urination. Patient denies any upper respiratory symptoms On 06/01/2019 patient's alert and oriented 3. Patient's urine culture positive for E. coli. Infectious disease following. Patient maintained on Cipro. Patient still having low-grade temps 99.8. Patient's ammonia level 32. Patient denies chest pain or shortness of breath. Patient is still having some abdominal discomfort surgical services have signed off. Patient denies any urinary burning or frequency On 06/02/2019 patient's alert and oriented 3. Antibiotics switched to IV Rocephin due to resistant to Cipro per infectious disease. Patient also complaining of increased nausea today patient still having low-grade temps. Patient denies chest pain or shortness breath. Patient is having some nausea with chronic abdominal pain. Patient denies any urinary burning or frequency. Objective - Vital Signs Vital signs: Vital Signs Temp 99.2 F 06/02/19 07:00 Pulse 58 L 06/02/19 07:00 Resp 16 06/02/19 07:00 BP 115/67 06/02/19 07:00 Pulse Ox 100 06/02/19 07:00 Intake & Output 06/01/19 06/02/19 06/02/19 18:59 06:59 18:59 Intake Total 560 502.5 500 Output Total 800 Balance -240 502.5 500 Intake: Intake, IV Titration 262.5 Amount Sodium Chloride 0.9% 1, 262.5 000 ml @ 75 mls/hr IV . [id number] [facility] Rx#:[id number] Oral 560 240 500 Output: Stool 800 Other: Voiding Method Toilet # Voids 1 2 - Exam Head normocephalic Neck supple Lungs clear to auscultation bilaterally no wheezing or crackles Heart regular rate and rhythm S1-S2, no rub or gallop Abdomen is soft slightly tender to palpation. Right upper quadrant ostomy in place Extremities no edema. Neuro alert and orientated to 3 - Labs CBC & Chem 7: 06/02/19 09:08 06/02/19 09:08 Labs: Abnormal Lab Results - Last 24 Hours (Table) 06/01/19 06/01/19 06/02/19 Range/Units 11:44 17:29 09:08 RBC (3.80-5.40) m/uL Hgb (11.4-16.0) gm/dL Hct (34.0-46.0) % MCV (80.0-100.0) fL MCH (25.0-35.0) pg Plt Count (150-450) k/uL Lymphocytes # (1.0-4.8) k/uL Macrocytosis Chloride (98-107) mmol/L Carbon Dioxide (22-30) mmol/L Glucose (74-99) mg/dL POC Glucose (mg/dL) 109 H 111 H (75-99) mg/dL Calcium (8.4-10.2) mg/dL Total Bilirubin (0.2-1.3) mg/dL AST (14-36) U/L Alkaline Phosphatase (38-126) U/L Ammonia 114 H (<30) umol/L Total Protein (6.3-8.2) g/dL Albumin (3.5-5.0) g/dL 06/02/19 06/02/19 Range/Units 09:08 09:08 RBC 3.06 L (3.80-5.40) m/uL Hgb 10.7 L (11.4-16.0) gm/dL Hct 33.7 L (34.0-46.0) % MCV 110.0 H (80.0-100.0) fL MCH 35.1 H (25.0-35.0) pg Plt Count 71 L (150-450) k/uL Lymphocytes # 0.7 L (1.0-4.8) k/uL Macrocytosis Marked A Chloride 114 H (98-107) mmol/L Carbon Dioxide 14 L (22-30) mmol/L Glucose 138 H (74-99) mg/dL POC Glucose (mg/dL) (75-99) mg/dL Calcium 7.9 L (8.4-10.2) mg/dL Total Bilirubin 1.8 H (0.2-1.3) mg/dL AST 46 H (14-36) U/L Alkaline Phosphatase 216 H (38-126) U/L Ammonia (<30) umol/L Total Protein 5.5 L (6.3-8.2) g/dL Albumin 2.3 L (3.5-5.0) g/dL Microbiology - Last 24 Hours (Table) 05/31/19 12:11 Blood Culture - Preliminary Blood No Growth after 24 hours 05/30/19 11:30 Urine Culture - Final Urine,Clean Catch Escherichia coli Assessment and Plan Assessment: 1. Abdominal pain with nausea and vomiting. KUB x-ray completed showing nonspecific abdomen. There is paucity of bowel gas and prominent small bowel loop in the left abdomen. Ileus enteritis in the differential diagnoses partial dissection also consideration correlate clinically. Left basilar atelectasis favored over infiltrate. Per surgical services no plans for surgical intervention at this time. Advanced regular diet. Surgical services STRAP SETTER will reevaluate due to continuing abdominal pain 2. Hypokalemia. Resolved 3. History of nonalcoholic liver cirrhosis 4. History of hepatocellular carcinoma status post embolization in 2012, 2016 and 2018 5. Acute on Chronic kidney disease stage III. Creatinine elevated to 1.40. normal saline at 75 6 . History of diverticulitis with ileostomy placement at [facility]. Patient has been advised to follow-up on multiple times with surgeon on his [facility]. 7. History of chronic abdominal pain due to recurring abdominal ascites 8. Chronic elevated ammonia level. Patient maintained on lactulose and Xifaxan. Continue to monitor ammonia levels. ammonia level 26 9. Chronic thrombocytopenia due to known liver cancer secondary to chronic liver cirrhosis 10. Insulin-dependent diabetes mellitus 11. Iron deficiency anemia 12. Chronic elevated LFTs due to chronic liver malignancy 13. History of depression 14. Febrile. Patient having low-grade temps elevated at 99.8. Repeat UA and culture ordered. C. diff sample ordered. Infectious disease consulted. Urine culture growing E. coli. Per infectious patient's antibiotic has been switched to IV Rocephin due to resistance. DVT prophylaxis SCDs due to, thrombocytopenia. GI prophylaxis Protonix I performed an examination of the patient and discussed their management with the Nurse Practitioner. I have reviewed the Nurse Practitioner's notes and agree with the documented findings and plan of care
[2019-06-02 11:54] LABS: Glucose,Whole Blood 117 mg/dL (75-99)
--- NOTE | 2019-06-02 14:12 | PN ---
PROGRESS NOTE DATE OF SERVICE: 06/02/2019 REASON FOR FOLLOWUP: Fever, possible UTI. INTERVAL HISTORY: The patient is currently afebrile. The patient has been breathing comfortably. Still has some abdominal pain, though improved with pain medication: Some burning of urination. No nausea, no vomiting. No difficulty breathing or cough. PHYSICAL EXAMINATION: Blood pressure is 115/67, pulse of 68, temperature 98.2. She is 100% on room air. General description is an elderly female, up in the bed in no distress. RESPIRATORY SYSTEM: Unlabored breathing with decreased breath sounds at the base, no wheeze. HEART: S1, S2. Regular rate and rhythm. ABDOMEN: Soft, no tenderness. LABS: Hemoglobin is 10.1, white count of 4.8. BUN of 12, creatinine 1.0. DIAGNOSTIC IMPRESSION AND PLAN: Patient with low-grade fever with concern for possible urinary tract infection showing an E coli currently on Rocephin to continue for at least 3 to 5 days and continue supportive care. MMODL / IJN: [id number] /
[2019-06-02 16:41] LABS: Glucose,Whole Blood 59 mg/dL (75-99)
[2019-06-02 17:09] LABS: Glucose,Whole Blood 85 mg/dL (75-99)
[2019-06-02 20:32] LABS: Glucose,Whole Blood 218 mg/dL (75-99)
[2019-06-02] MEDS: RIFAXIMIN 550 MG TABLET PO SCH (21:44)
[2019-06-03] MEDS: SODIUM CHLORIDE 0.9% 1,000 ML IV SCH ×3 (02:41→21:04)
[2019-06-03 07:03] LABS: Glucose,Whole Blood 135 mg/dL (75-99)
[2019-06-03] MEDS: INSULIN ASPART (NovoLOG) 100 UNIT/ML VIAL SQ SCH ×4 (07:11→20:40)
[2019-06-03] MEDS: INSULIN NPH 300 UNIT/3 ML VIAL SQ SCH ×2 (07:48→20:41)
[2019-06-03] MEDS: LACTULOSE 20 GM/30 ML CUP PO SCH ×3 (08:20→20:33)
[2019-06-03] MEDS: CHOLECALCIFEROL 1,000 UNIT TAB PO SCH (08:22)
[2019-06-03] MEDS: MAGNESIUM OXIDE 400 MG TAB PO SCH ×2 (08:22→20:41)
[2019-06-03] MEDS: PANTOPRAZOLE 40 MG TABLET PO SCH (08:22)
[2019-06-03] MEDS: SUCRALFATE 1 GM TAB PO SCH ×4 (08:22→20:41)
[2019-06-03] MEDS: SODIUM BICARBONATE TAB 650 MG TAB PO SCH ×2 (08:22→20:41)
[2019-06-03] MEDS: METOPROLOL TARTRATE 12.5 MG TAB PO SCH ×2 (08:22→20:41)
[2019-06-03] MEDS: RIFAXIMIN 550 MG TABLET PO SCH ×2 (08:22→20:41)
[2019-06-03] MEDS: POTASSIUM CHLORIDE ER 20 MEQ TAB.ER PO SCH (08:22)
[2019-06-03] MEDS: DICYCLOMINE 20 MG TAB PO SCH ×3 (08:22→20:41)
[2019-06-03] MEDS: FERROUS SULFATE 325 MG TAB PO SCH ×2 (08:23→21:06)
[2019-06-03] MEDS: MORPHINE SULFATE ER 15 MG TABLET PO SCH ×2 (08:23→20:41)
[2019-06-03] MEDS: buPROPion SR 150 MG TABLET.ER PO SCH (08:23)
[2019-06-03 08:38] LABS: Basophils % (A) 1 %; Eosinophils # (A) 0.2 k/uL (0-0.7); Eosinophils % (A) 5 %; HGB 10.7 gm/dL (11.4-16.0); Hypochromasia Slight; Lymphocytes # (A) 1.2 k/uL (1.0-4.8); Lymphocytes % (A) 29 %; MCH 35.8 pg (25.0-35.0); MCHC 32.4 g/dL (31.0-37.0); MCV 110.5 fL (80.0-100.0); Macrocytosis Marked; Mean Platelet Volume 9.6; Monocytes # (A) 0.3 k/uL (0-1.0); Monocytes % (A) 8 %; Neutrophils # (A) 2.2 k/uL (1.3-7.7); Neutrophils % (A) 55 %; RBC 2.99 m/uL (3.80-5.40); RDW 15.7 % (11.5-15.5)
[2019-06-03 08:45] LABS: Platelet Count 65 k/uL (150-450)
[2019-06-03 08:58] LABS: Albumin 2.2 g/dL (3.5-5.0); Calcium 7.7 mg/dL (8.4-10.2); Potassium 4.3 mmol/L (3.5-5.1); Total Bilirubin 1.5 mg/dL (0.2-1.3); Total Protein 5.2 g/dL (6.3-8.2)
[2019-06-03 11:26] LABS: Glucose,Whole Blood 163 mg/dL (75-99)
[2019-06-03] MEDS: ZINC OXIDE 20% OINT 28.4 GM TUBE TOPICAL SCH ×2 (11:53→20:33)
--- NOTE | 2019-06-03 13:57 | P.PN ---
Subjective Progress Note Date: 06/03/19 This is a 73-year-old female patient presents with complaints of abdominal pain with nausea and vomiting. Patient was recently admitted and discharged for altered mental status change related to elevated ammonia level. Patient reports that she was home and she started to develop dry heaves. Patient reports that the pain did not subside with eating. Patient has a known past medical history of primary liver cancer, diabetes mellitus, GERD, hypertension, myocardial infarction, chronic liver disease, chronic ascites requiring paracentesis his, over the ammonia level history of diverticular disease with ileostomy completed at [facility], anxiety and depression. KUB x-ray completed showing nonspecific abdomen there is a paucity of bowel gas and prominent small bowel loop in the left abdomen. Ileus, enteritis in the differential diagnosis. Partial obstruction also to be considered a correlate clinically. Left basilar atelectasis favored over infiltrate. At this time patient is alert and oriented 3 resting comfortably in bed. Abdomen is soft but tender to palpation. Patient is having stool through ostomy. Surgical services have been consulted. Patient denies chest pain or shortness breath. Patient denies nausea vomiting or diarrhea. Patient denies any urinary burning or frequency. On 05/26/2019 patient is alert and oriented 3. Patient is complaining of some increased nausea today. Diet to remain at full liquid at this time. No plans for surgical intervention per surgical services. Ammonia 26. Patient denies chest pain or shortness breath. patient is complaining of some nausea and vomiting. Patient denies any urinary burning or frequency On 05/27/2018 patient's alert and oriented 3. Patient is still complaining of some nausea. Diet has been advanced to regular diet. Patient denies any chest pain or shortness breath. Patient is complaining of nausea with abdominal discomfort. Patient denies any urinary burning or frequency surgical services are following On 05/28/2019 patient was seen and examined on the medical floor she is alert and oriented she is complaining of severe abdominal pain around her stoma she is also complaining of nausea otherwise she denies any complaints there is no fever or chills no headache or dizziness no chest pain no shortness of breath no cough no vomiting, she has liquid stool coming out of her ileostomy and filling her bag, she denies any urinary symptoms On 05/29/2019 patient's alert and oriented 3. Patient is still complaining of increased abdominal pain. Spoke to surgical services [employer] [employer] will reevaluate p atient. Patient denies any nausea or vomiting. Patient is having positive stool output through ostomy. Patient denies chest pain or shortness of breath. Patient denies nausea vomiting or diarrhea. Patient denies any urinary burning or frequency. On 05/30/2019 patient's alert and oriented 3. Patient reports improvement with abdominal pain. Per surgical services no plan for surgery. Patient has been tolerating diet. At this time patient denies chest pain or shortness breath. Patient denies nausea vomiting or diarrhea. Patient denies any urinary burning or frequency On 05/31/2019 patient's alert and oriented 3. Patient reports having abdominal pain. Patient had increased temperatures throughout night. Repeat UA has been ordered C. diff ordered. Infectious disease consulted. At this time patient denies chest pain or shortness breath. Patient denies any nausea or vomiting. Patient denies any burning with urination. Patient denies any upper respiratory symptoms On 06/01/2019 patient's alert and oriented 3. Patient's urine culture positive for E. coli. Infectious disease following. Patient maintained on Cipro. Patient still having low-grade temps 99.8. Patient's ammonia level 32. Patient denies chest pain or shortness of breath. Patient is still having some abdominal discomfort surgical services have signed off. Patient denies any urinary burning or frequency On 06/02/2019 patient's alert and oriented 3. Antibiotics switched to IV Rocephin due to resistant to Cipro per infectious disease. Patient also complaining of increased nausea today patient still having low-grade temps. Patient denies chest pain or shortness breath. Patient is having some nausea with chronic abdominal pain. Patient denies any urinary burning or frequency. On 06/03/2019 patient was seen and examined on the medical floor she is alert and oriented 3 in no apparent distress she is complaining of abdominal pain but improved since yesterday she is also complaining of lower extremity swelling otherwise she denies any complaints there is no fever or chills no headache no dizziness no chest pain no shortness of breath no cough no nausea or vomiting and no urinary symptoms Objective - Vital Signs Vital signs: Vital Signs Temp 98.8 F 06/03/19 07:00 Pulse 63 06/03/19 07:00 Resp 14 06/03/19 07:00 BP 103/63 06/03/19 07:00 Pulse Ox 100 06/03/19 07:00 Intake & Output 06/02/19 06/03/19 06/03/19 18:59 06:59 18:59 Intake Total 740 230 Balance 740 230 Intake: Oral 740 230 Other: Voiding Method Toilet # Voids 1 2 # Bowel Movements 2 - Exam Head normocephalic and atraumatic Neck supple no JVD no goiter Lungs clear to auscultation bilaterally no wheezing or crackles Heart regular rate and rhythm S1-S2, no rub or gallop Abdomen is soft slightly tender to palpation. Extremities no edema. +1 lower extremity edema Neuro alert and orientated to 3 - Labs CBC & Chem 7: 06/03/19 08:10 06/03/19 08:10 Labs: Abnormal Lab Results - Last 24 Hours (Table) 06/02/19 06/02/19 06/03/19 Range/Units 16:29 20:18 06:51 RBC (3.80-5.40) m/uL Hgb (11.4-16.0) gm/dL Hct (34.0-46.0) % MCV (80.0-100.0) fL MCH (25.0-35.0) pg RDW (11.5-15.5) % Plt Count (150-450) k/uL Macrocytosis Sodium (137-145) mmol/L Chloride (98-107) mmol/L Carbon Dioxide (22-30) mmol/L Creatinine (0.52-1.04) mg/dL Glucose (74-99) mg/dL POC Glucose (mg/dL) 59 L 218 H 135 H (75-99) mg/dL Calcium (8.4-10.2) mg/dL Total Bilirubin (0.2-1.3) mg/dL AST (14-36) U/L Alkaline Phosphatase (38-126) U/L Total Protein (6.3-8.2) g/dL Albumin (3.5-5.0) g/dL 06/03/19 06/03/19 06/03/19 Range/Units 08:10 08:10 11:13 RBC 2.99 L (3.80-5.40) m/uL Hgb 10.7 L (11.4-16.0) gm/dL Hct 33.0 L (34.0-46.0) % MCV 110.5 H (80.0-100.0) fL MCH 35.8 H (25.0-35.0) pg RDW 15.7 H (11.5-15.5) % Plt Count 65 L (150-450) k/uL Macrocytosis Marked A Sodium 136 L (137-145) mmol/L Chloride 113 H (98-107) mmol/L Carbon Dioxide 19 L (22-30) mmol/L Creatinine 1.17 H (0.52-1.04) mg/dL Glucose 132 H (74-99) mg/dL POC Glucose (mg/dL) 163 H (75-99) mg/dL Calcium 7.7 L (8.4-10.2) mg/dL Total Bilirubin 1.5 H (0.2-1.3) mg/dL AST 42 H (14-36) U/L Alkaline Phosphatase 180 H (38-126) U/L Total Protein 5.2 L (6.3-8.2) g/dL Albumin 2.2 L (3.5-5.0) g/dL Microbiology - Last 24 Hours (Table) 05/31/19 12:11 Blood Culture - Preliminary Blood No Growth after 48 hours Assessment and Plan Plan: 1. Abdominal pain with nausea and vomiting. KUB x-ray completed showing nonspecific abdomen. There is paucity of bowel gas and prominent small bowel loop in the left abdomen. Ileus enteritis in the differential diagnoses partial dissection also consideration correlate clinically. Left basilar atelectasis favored over infiltrate. Per surgical services no plans for surgical intervention at this time. Advanced regular diet. Surgical services [employer] [employer] will reevaluate due to continuing abdominal pain 2. Hypokalemia. Resolved 3. History of nonalcoholic liver cirrhosis 4. History of hepatocellular carcinoma status post embolization in 2013, 2016 and 2018 5. Acute on Chronic kidney disease stage III. Creatinine elevated to 1.40. normal saline at 75 6 . History of diverticulitis with ileostomy placement at [facility]. Patient has been advised to follow-up on multiple times with surgeon on his [facility]. 7. History of chronic abdominal pain due to recurring abdominal ascites 8. Chronic elevated ammonia level. Patient maintained on lactulose and Xifaxan. Continue to monitor ammonia levels. ammonia level 26 9. Chronic thrombocytopenia due to known liver cancer secondary to chronic liver cirrhosis 10. Insulin-dependent diabetes mellitus 11. Iron deficiency anemia 12. Chronic elevated LFTs due to chronic liver malignancy 13. History of depression 14. Febrile. Patient having low-grade temps elevated at 99.8. Repeat UA and culture ordered. C. diff sample ordered. Infectious disease consulted. Urine culture growing E. coli. Per infectious patient's antibiotic has been switched to IV Rocephin due to resistance. DVT prophylaxis SCDs due to, thrombocytopenia. GI prophylaxis Protonix
[2019-06-03] MEDS ORDERED: FUROSEMIDE 10 MG/ML 2 ML VIAL IV ONE (16:00)
[2019-06-03] MEDS: ALBUMIN HUMAN 25% 50 ML in EMPTY BAG 1 BAG IVPB SCH ×2 (16:35→17:19)
[2019-06-03] MEDS: MORPHINE SULFATE 2 MG/ML SYRINGE IVP PRN (17:14)
--- NOTE | 2019-06-03 17:25 | PN ---
PROGRESS NOTE DATE OF SERVICE: 06/03/2019. REASON FOR FOLLOWUP: E coli urinary tract infection. INTERVAL COURSE: Patient did have a low-grade fever of 100 degrees last night. However, the patient is afebrile since then. The patient has been breathing comfortably. The patient did mention that the abdominal pain is doing better today. No nausea, no vomiting. No chest pain, shortness of breath or cough. PHYSICAL EXAMINATION: Blood pressure 102/54 with a pulse of 63, temperature 98.2. She is 100% on room air. General description is an elderly female lying in bed in no distress. Respiratory system: Unlabored breathing. Clear to auscultation anteriorly. Heart S1, S2. Regular rate and rhythm. Abdomen soft. No tenderness. LABS: Hemoglobin is 10.4, white count 4.0, BUN of 14, creatinine 1.17. DIAGNOSTIC IMPRESSION AND PLAN: Patient with low-grade fever, multifactorial, possible component of E coli urinary tract infection for which the patient is currently covered with IV Rocephin. Continue to finish a course of therapy. Monitor clinical course closely. Continue supportive care. MMODL / IJN: [id number] /
[2019-06-03 17:27] LABS: Glucose,Whole Blood 189 mg/dL (75-99)
[2019-06-03 20:19] LABS: Glucose,Whole Blood 215 mg/dL (75-99)
[2019-06-04 06:54] LABS: Glucose,Whole Blood 127 mg/dL (75-99)
[2019-06-04 07:00] LABS: Basophils % (A) 0 %; Eosinophils # (A) 0.2 k/uL (0-0.7); Eosinophils % (A) 5 %; HCT 28.1 % (34.0-46.0); Lymphocytes # (A) 0.7 k/uL (1.0-4.8); Lymphocytes % (A) 21 %; MCH 34.1 pg (25.0-35.0); MCHC 31.9 g/dL (31.0-37.0); MCV 106.8 fL (80.0-100.0); Macrocytosis Moderate; Mean Platelet Volume 9.7; Monocytes # (A) 0.3 k/uL (0-1.0); Monocytes % (A) 8 %; Neutrophils # (A) 2.2 k/uL (1.3-7.7); Neutrophils % (A) 63 %; Platelet Count 66 k/uL (150-450); RBC 2.63 m/uL (3.80-5.40); RDW 15.1 % (11.5-15.5); WBC 3.4 k/uL (3.8-10.6)
[2019-06-04] MEDS: INSULIN ASPART (NovoLOG) 100 UNIT/ML VIAL SQ SCH ×4 (07:01→21:48)
[2019-06-04 07:14] LABS: Albumin 2.1 g/dL (3.5-5.0); Calcium 7.7 mg/dL (8.4-10.2); Potassium 3.6 mmol/L (3.5-5.1); Total Protein 4.7 g/dL (6.3-8.2)
[2019-06-04] MEDS: INSULIN NPH 300 UNIT/3 ML VIAL SQ SCH ×2 (08:24→21:47)
[2019-06-04] MEDS: LACTULOSE 20 GM/30 ML CUP PO SCH ×4 (08:25→22:00)
[2019-06-04] MEDS: RIFAXIMIN 550 MG TABLET PO SCH ×2 (08:26→22:00)
[2019-06-04] MEDS: SUCRALFATE 1 GM TAB PO SCH ×4 (08:26→21:45)
[2019-06-04] MEDS: MAGNESIUM OXIDE 400 MG TAB PO SCH ×2 (08:26→21:45)
[2019-06-04] MEDS: METOPROLOL TARTRATE 12.5 MG TAB PO SCH ×2 (08:26→21:45)
[2019-06-04] MEDS: MORPHINE SULFATE ER 15 MG TABLET PO SCH ×2 (08:26→21:46)
[2019-06-04] MEDS: PANTOPRAZOLE 40 MG TABLET PO SCH (08:27)
[2019-06-04] MEDS: buPROPion SR 150 MG TABLET.ER PO SCH (08:27)
[2019-06-04] MEDS: DICYCLOMINE 20 MG TAB PO SCH ×3 (08:27→22:00)
[2019-06-04] MEDS: SODIUM BICARBONATE TAB 650 MG TAB PO SCH ×2 (08:28→21:46)
[2019-06-04] MEDS: TORSEMIDE 20 MG TAB PO SCH (08:28)
[2019-06-04] MEDS: FERROUS SULFATE 325 MG TAB PO SCH ×2 (08:28→21:46)
[2019-06-04] MEDS: CHOLECALCIFEROL 1,000 UNIT TAB PO SCH (08:28)
[2019-06-04] MEDS: POTASSIUM CHLORIDE ER 20 MEQ TAB.ER PO SCH (08:28)
[2019-06-04] MEDS: ZINC OXIDE 20% OINT 28.4 GM TUBE TOPICAL SCH ×2 (08:29→21:49)
[2019-06-04] MEDS: SODIUM CHLORIDE 0.9% 1,000 ML IV SCH (08:37)
--- NOTE | 2019-06-04 11:06 | P.PN ---
Subjective Progress Note Date: 06/04/19 This is a 73-year-old female patient presents with complaints of abdominal pain with nausea and vomiting. Patient was recently admitted and discharged for altered mental status change related to elevated ammonia level. Patient reports that she was home and she started to develop dry heaves. Patient reports that the pain did not subside with eating. Patient has a known past medical history of primary liver cancer, diabetes mellitus, GERD, hypertension, myocardial infarction, chronic liver disease, chronic ascites requiring paracentesis his, over the ammonia level history of diverticular disease with ileostomy completed at [facility], anxiety and depression. KUB x-ray completed showing nonspecific abdomen there is a paucity of bowel gas and prominent small bowel loop in the left abdomen. Ileus, enteritis in the differential diagnosis. Partial obstruction also to be considered a correlate clinically. Left basilar atelectasis favored over infiltrate. At this time patient is alert and oriented 3 resting comfortably in bed. Abdomen is soft but tender to palpation. Patient is having stool through ostomy. Surgical services have been consulted. Patient denies chest pain or shortness breath. Patient denies nausea vomiting or diarrhea. Patient denies any urinary burning or frequency. On 05/26/2019 patient is alert and oriented 3. Patient is complaining of some increased nausea today. Diet to remain at full liquid at this time. No plans for surgical intervention per surgical services. Ammonia 26. Patient denies chest pain or shortness breath. patient is complaining of some nausea and vomiting. Patient denies any urinary burning or frequency On 05/27/2018 patient's alert and oriented 3. Patient is still complaining of some nausea. Diet has been advanced to regular diet. Patient denies any chest pain or shortness breath. Patient is complaining of nausea with abdominal discomfort. Patient denies any urinary burning or frequency surgical services are following On 05/28/2019 patient was seen and examined on the medical floor she is alert and oriented she is complaining of severe abdominal pain around her stoma she is also complaining of nausea otherwise she denies any complaints there is no fever or chills no headache or dizziness no chest pain no shortness of breath no cough no vomiting, she has liquid stool coming out of her ileostomy and filling her bag, she denies any urinary symptoms On 05/29/2019 patient's alert and oriented 3. Patient is still complaining of increased abdominal pain. Spoke to surgical services SUPERVISOR MACHINE SETTER will reevaluate p atient. Patient denies any nausea or vomiting. Patient is having positive stool output through ostomy. Patient denies chest pain or shortness of breath. Patient denies nausea vomiting or diarrhea. Patient denies any urinary burning or frequency. On 05/30/2019 patient's alert and oriented 3. Patient reports improvement with abdominal pain. Per surgical services no plan for surgery. Patient has been tolerating diet. At this time patient denies chest pain or shortness breath. Patient denies nausea vomiting or diarrhea. Patient denies any urinary burning or frequency On 05/31/2019 patient's alert and oriented 3. Patient reports having abdominal pain. Patient had increased temperatures throughout night. Repeat UA has been ordered C. diff ordered. Infectious disease consulted. At this time patient denies chest pain or shortness breath. Patient denies any nausea or vomiting. Patient denies any burning with urination. Patient denies any upper respiratory symptoms On 06/01/2019 patient's alert and oriented 3. Patient's urine culture positive for E. coli. Infectious disease following. Patient maintained on Cipro. Patient still having low-grade temps 99.8. Patient's ammonia level 32. Patient denies chest pain or shortness of breath. Patient is still having some abdominal discomfort surgical services have signed off. Patient denies any urinary burning or frequency On 06/02/2019 patient's alert and oriented 3. Antibiotics switched to IV Rocephin due to resistant to Cipro per infectious disease. Patient also complaining of increased nausea today patient still having low-grade temps. Patient denies chest pain or shortness breath. Patient is having some nausea with chronic abdominal pain. Patient denies any urinary burning or frequency. On 06/03/2019 patient was seen and examined on the medical floor she is alert and oriented 3 in no apparent distress she is complaining of abdominal pain but improved since yesterday she is also complaining of lower extremity swelling otherwise she denies any complaints there is no fever or chills no headache no dizziness no chest pain no shortness of breath no cough no nausea or vomiting and no urinary symptoms On 06/04/2019 patient's alert and oriented 3. Patient still having some abdominal pain around stoma site. Patient denies chest pain or shortness breath. Patient denies nausea vomiting or diarrhea. Patient denies any urinary burning or frequency. Objective - Vital Signs Vital signs: Vital Signs Temp 98.6 F 06/04/19 07:00 Pulse 65 06/04/19 07:00 Resp 17 06/04/19 07:00 BP 100/64 06/04/19 07:00 Pulse Ox 98 06/04/19 07:00 Intake & Output 06/03/19 06/04/19 06/04/19 18:59 06:59 18:59 Intake Total 452 260 Output Total 100 Balance 452 160 Intake: Oral 452 260 Output: Stool 100 Other: Voiding Method Toilet # Voids 3 # Bowel Movements 1 - Exam Head normocephalic Neck supple Lungs clear to auscultation bilaterally no wheezing or crackles Heart regular rate and rhythm S1-S2, no rub or gallop Abdomen is soft slightly tender to palpation. Right upper quadrant ostomy in place Extremities no edema. Neuro alert and orientated to 3 - Labs CBC & Chem 7: 06/04/19 06:41 06/04/19 06:41 Labs: Abnormal Lab Results - Last 24 Hours (Table) 06/03/19 06/03/19 06/03/19 Range/Units 11:13 17:16 20:09 WBC (3.8-10.6) k/uL RBC (3.80-5.40) m/uL Hgb (11.4-16.0) gm/dL Hct (34.0-46.0) % MCV (80.0-100.0) fL Plt Count (150-450) k/uL Lymphocytes # (1.0-4.8) k/uL Chloride (98-107) mmol/L Carbon Dioxide (22-30) mmol/L Creatinine (0.52-1.04) mg/dL Glucose (74-99) mg/dL POC Glucose (mg/dL) 163 H 189 H 215 H (75-99) mg/dL Calcium (8.4-10.2) mg/dL Alkaline Phosphatase (38-126) U/L Ammonia (<30) umol/L Total Protein (6.3-8.2) g/dL Albumin (3.5-5.0) g/dL 06/04/19 06/04/19 06/04/19 Range/Units 06:41 06:41 06:41 WBC 3.4 L (3.8-10.6) k/uL RBC 2.63 L (3.80-5.40) m/uL Hgb 9.0 L D (11.4-16.0) gm/dL Hct 28.1 L (34.0-46.0) % MCV 106.8 H (80.0-100.0) fL Plt Count 66 L (150-450) k/uL Lymphocytes # 0.7 L (1.0-4.8) k/uL Chloride 113 H (98-107) mmol/L Carbon Dioxide 20 L (22-30) mmol/L Creatinine 1.24 H (0.52-1.04) mg/dL Glucose 122 H (74-99) mg/dL POC Glucose (mg/dL) (75-99) mg/dL Calcium 7.7 L (8.4-10.2) mg/dL Alkaline Phosphatase 213 H (38-126) U/L Ammonia 60 H (<30) umol/L Total Protein 4.7 L (6.3-8.2) g/dL Albumin 2.1 L (3.5-5.0) g/dL 06/04/19 Range/Units 06:43 WBC (3.8-10.6) k/uL RBC (3.80-5.40) m/uL Hgb (11.4-16.0) gm/dL Hct (34.0-46.0) % MCV (80.0-100.0) fL Plt Count (150-450) k/uL Lymphocytes # (1.0-4.8) k/uL Chloride (98-107) mmol/L Carbon Dioxide (22-30) mmol/L Creatinine (0.52-1.04) mg/dL Glucose (74-99) mg/dL POC Glucose (mg/dL) 127 H (75-99) mg/dL Calcium (8.4-10.2) mg/dL Alkaline Phosphatase (38-126) U/L Ammonia (<30) umol/L Total Protein (6.3-8.2) g/dL Albumin (3.5-5.0) g/dL Microbiology - Last 24 Hours (Table) 05/31/19 12:11 Blood Culture - Preliminary Blood No Growth after 72 hours Assessment and Plan Assessment: 1. Abdominal pain with nausea and vomiting. KUB x-ray completed showing nonspecific abdomen. There is paucity of bowel gas and prominent small bowel loop in the left abdomen. Ileus enteritis in the differential diagnoses partial dissection also consideration correlate clinically. Left basilar atelectasis favored over infiltrate. Per surgical services no plans for surgical intervention at this time. Advanced regular diet. Surgical services SUPERVISOR MACHINE SETTER will reevaluate due to continuing abdominal pain 2. Hypokalemia. Resolved 3. History of nonalcoholic liver cirrhosis 4. History of hepatocellular carcinoma status post embolization in 2013, 2016 and 2018 5. Acute on Chronic kidney disease stage III. Creatinine elevated to 1.40. normal saline at 75 6 . History of diverticulitis with ileostomy placement at [facility]. Patient has been advised to follow-up on multiple times with surgeon on his [facility]. 7. History of chronic abdominal pain due to recurring abdominal ascites 8. Chronic elevated ammonia level. Patient maintained on lactulose and Xifaxan. Continue to monitor ammonia levels. ammonia level 26 9. Chronic thrombocytopenia due to known liver cancer secondary to chronic liver cirrhosis 10. Insulin-dependent diabetes mellitus 11. Iron deficiency anemia 12. Chronic elevated LFTs due to chronic liver malignancy 13. History of depression 14. Febrile. Patient having low-grade temps elevated at 99.8. Repeat UA and culture ordered. C. diff sample ordered. Infectious disease consulted. Urine culture growing E. coli. Per infectious patient's antibiotic has been switched to IV Rocephin due to resistance. DVT prophylaxis SCDs due to, thrombocytopenia. GI prophylaxis Protonix I performed an examination of the patient and discussed their management with the Nurse Practitioner. I have reviewed the Nurse Practitioner's notes and agree with the documented findings and plan of care
[2019-06-04 11:14] LABS: Glucose,Whole Blood 230 mg/dL (75-99)
[2019-06-04] MEDS: MORPHINE SULFATE 2 MG/ML SYRINGE IVP PRN ×2 (13:20→19:02)
--- NOTE | 2019-06-04 13:45 | US ---
EXAMINATION TYPE: US venous doppler duplex LE DATE OF EXAM: 06/04/2019 1:18 PM COMPARISON: Previous study dated 04/14/2019. CLINICAL HISTORY: r/o DVT. Edema bilateral legs for 1 month SIDE PERFORMED: bilateral TECHNIQUE: The lower extremity deep venous system is examined utilizing real time linear array sonog ty with graded compression, doppler sonography and color-flow sonography. VESSELS IMAGED: External Iliac Vein (EIV) Common Femoral Vein Deep Femoral Vein Greater Saphenous Vein * Femoral Vein Popliteal Vein Small Saphenous Vein * Proximal Calf Veins (* superficial vessels) Right Leg: No evidence of DVT Left Leg: No evidence of DVT No popliteal fossa lesion is seen. IMPRESSION: THIS EXAMINATION IS NEGATIVE FOR DVT IN BOTH LEGS.
[2019-06-04 16:25] LABS: Glucose,Whole Blood 174 mg/dL (75-99)
[2019-06-04 20:14] LABS: Glucose,Whole Blood 153 mg/dL (75-99)
--- NOTE | 2019-06-04 20:30 | PN ---
PROGRESS NOTE DATE OF SERVICE: 06/04/2019. REASON FOR FOLLOWUP: Fever, possible UTI. INTERVAL HISTORY: No fever has been recorded in the last 24 hours. The patient is complaining of some soreness on the mouth especially the right side. Denies having difficulty swallowing. No chest pain, shortness of breath or cough. Still has some abdominal pain, but no diarrhea. PHYSICAL EXAMINATION: Blood pressure 102/65 with a pulse of 79, temperature 98.4. She is 98% on room air. General description is an elderly female lying in bed in no distress. Respiratory system: Unlabored breathing, clear to auscultation anteriorly. Heart S1, S2. Regular rate and rhythm. Abdomen soft, no tenderness. LABS: Hemoglobin 9, white count 8.4, BUN of 13, creatinine 1.24. DIAGNOSTIC IMPRESSION AND PLAN: 1. Patient with fever with concern for possible urinary tract infection. Urine with an E coli resistant currently on Rocephin to continue. 2. Patient with soreness in the mouth, possible thrush. Add nystatin swish and swallow and see response. MMODL / IJN: [id number] /
[2019-06-04] MEDS: NYSTATIN 100,000 UNIT/ML SUSP 500,000 UNIT/5 ML CUP PO SCH ×2 (21:49→22:00)
[2019-06-05] MEDS: SODIUM CHLORIDE 0.9% 1,000 ML IV SCH (04:30)
[2019-06-05 07:25] LABS: Glucose,Whole Blood 136 mg/dL (75-99)
[2019-06-05] MEDS: PANTOPRAZOLE 40 MG TABLET PO SCH (07:33)
[2019-06-05] MEDS: SUCRALFATE 1 GM TAB PO SCH ×2 (07:33→13:03)
[2019-06-05] MEDS: INSULIN ASPART (NovoLOG) 100 UNIT/ML VIAL SQ SCH ×2 (07:34→13:04)
[2019-06-05] MEDS: CHOLECALCIFEROL 1,000 UNIT TAB PO SCH (08:33)
[2019-06-05] MEDS: METOPROLOL TARTRATE 12.5 MG TAB PO SCH (08:33)
[2019-06-05] MEDS: MORPHINE SULFATE ER 15 MG TABLET PO SCH (08:34)
[2019-06-05] MEDS: SODIUM BICARBONATE TAB 650 MG TAB PO SCH (08:34)
[2019-06-05] MEDS: FERROUS SULFATE 325 MG TAB PO SCH (08:35)
[2019-06-05] MEDS: MAGNESIUM OXIDE 400 MG TAB PO SCH (08:35)
[2019-06-05] MEDS: INSULIN NPH 300 UNIT/3 ML VIAL SQ SCH (08:35)
[2019-06-05] MEDS: POTASSIUM CHLORIDE ER 20 MEQ TAB.ER PO SCH ×3 (08:35→15:29)
[2019-06-05] MEDS: buPROPion SR 150 MG TABLET.ER PO SCH (08:36)
[2019-06-05] MEDS: LACTULOSE 20 GM/30 ML CUP PO SCH ×2 (08:36→16:18)
[2019-06-05] MEDS: DICYCLOMINE 20 MG TAB PO SCH ×2 (08:36→16:18)
[2019-06-05] MEDS: RIFAXIMIN 550 MG TABLET PO SCH (08:36)
[2019-06-05] MEDS: NYSTATIN 100,000 UNIT/ML SUSP 500,000 UNIT/5 ML CUP PO SCH ×2 (08:37→13:05)
[2019-06-05 08:40] LABS: Albumin 2.3 g/dL (3.5-5.0); Calcium 7.7 mg/dL (8.4-10.2); Total Bilirubin 1.2 mg/dL (0.2-1.3); Total Protein 5.3 g/dL (6.3-8.2)
[2019-06-05 08:41] LABS: Potassium 3.3 mmol/L (3.5-5.1)
[2019-06-05 08:43] LABS: Basophils % (A) 1 %; Eosinophils # (A) 0.3 k/uL (0-0.7); Eosinophils % (A) 7 %; HGB 10.5 gm/dL (11.4-16.0); Hypochromasia Slight; Lymphocytes # (A) 1.1 k/uL (1.0-4.8); Lymphocytes % (A) 28 %; MCH 35.1 pg (25.0-35.0); MCHC 31.9 g/dL (31.0-37.0); MCV 110.1 fL (80.0-100.0); Macrocytosis Marked; Mean Platelet Volume 9.7; Monocytes # (A) 0.3 k/uL (0-1.0); Monocytes % (A) 8 %; Neutrophils % (A) 54 %; RBC 2.99 m/uL (3.80-5.40); RDW 15.1 % (11.5-15.5); WBC 3.8 k/uL (3.8-10.6)
[2019-06-05 08:53] LABS: Platelet Count 54 k/uL (150-450)
[2019-06-05] MEDS ORDERED: Potassium Replacement Protocol 1 EACH MISC MISCELLANE PRN (10:07)
--- NOTE | 2019-06-05 10:15 | P.DS ---
Providers Date of admission: 05/24/19 16:06 Expected date of discharge: 06/05/19 Attending physician: Artemio Lea Consults: 05/31/19 11:30 Consult Physician Routine Consulting Provider: Jaylene Esparza Consult Reason/Comments: elevated temps Do you want consulting provider notified?: Yes Primary care physician: Artemio Lea [facility] Course: Discharge diagnosis 1. Abdominal pain with nausea and vomiting. KUB x-ray completed showing nonspecific abdomen. There is paucity of bowel gas and prominent small bowel loop in the left abdomen. Ileus enteritis in the differential diagnoses partial dissection also consideration correlate clinically. Left basilar atelectasis favored over infiltrate. Per surgical services no plans for surgical intervention at this time. Advanced regular diet. No surgical intervention per surgical services. She has been cleared for discharge from surgical standpoint 2. Hypokalemia. Resolved 3. History of nonalcoholic liver cirrhosis 4. History of hepatocellular carcinoma status post embolization in 2013, 2016 and 2018 5. Acute on Chronic kidney disease stage III. Creatinine elevated to 1.40. normal saline at 75 6 . History of diverticulitis with ileostomy placement at [facility]. Patient has been advised to follow-up on multiple times with surgeon on his [facility]. 7. History of chronic abdominal pain due to recurring abdominal ascites 8. Chronic elevated ammonia level. Patient maintained on lactulose and Xifaxan. Continue to monitor ammonia levels. 9. Chronic thrombocytopenia due to known liver cancer secondary to chronic liver cirrhosis 10. Insulin-dependent diabetes mellitus 11. Iron deficiency anemia 12. Chronic elevated LFTs due to chronic liver malignancy 13. History of depression 14. Febrile. Patient having low-grade temps elevated at 99.8. Repeat UA and culture ordered. C. diff sample ordered. Infectious disease consulted. Urine culture growing E. coli. Per infectious patient's antibiotic has been switched to IV Rocephin due to resistance. Discussed with infectious disease Dr. Esparza. Per infectious disease patient has received 5 days of IV antibiotics no need for antibiotics upon discharge 15. Thrush. Patient to be DC'd on nightstand per ID Hospital course This is a 73-year-old female patient presents with complaints of abdominal pain with nausea and vomiting. Patient was recently admitted and discharged for altered mental status change related to elevated ammonia level. Patient reports that she was home and she started to develop dry heaves. Patient reports that the pain did not subside with eating. Patient has a known past medical history of primary liver cancer, diabetes mellitus, GERD, hypertension, myocardial infarction, chronic liver disease, chronic ascites requiring paracentesis his, over the ammonia level history of diverticular disease with ileostomy completed at [facility], anxiety and depression. KUB x-ray completed showing nonspecific abdomen there is a paucity of bowel gas and prominent small bowel loop in the left abdomen. Ileus, enteritis in the differential diagnosis. Partial obstruction also to be considered a correlate clinically. Left basilar atelectasis favored over infiltrate. At this time patient is alert and oriented 3 resting comfortably in bed. Abdomen is soft but tender to palpation. Patient is having stool through ostomy. Surgical services have been consulted. Patient denies chest pain or shortness breath. Patient denies nausea vomiting or diarrhea. Patient denies any urinary burning or frequency. On 05/26/2019 patient is alert and oriented 3. Patient is complaining of some increased nausea today. Diet to remain at full liquid at this time. No plans for surgical intervention per surgical services. Ammonia 26. Patient denies chest pain or shortness breath. patient is complaining of some nausea and vomiting. Patient denies any urinary burning or frequency On 05/27/2018 patient's alert and oriented 3. Patient is still complaining of some nausea. Diet has been advanced to regular diet. Patient denies any chest pain or shortness breath. Patient is complaining of nausea with abdominal discomfort. Patient denies any urinary burning or frequency surgical services are following On 05/28/2019 patient was seen and examined on the medical floor she is alert and oriented she is complaining of severe abdominal pain around her stoma she is also complaining of nausea otherwise she denies any complaints there is no fever or chills no headache or dizziness no chest pain no shortness of breath no cough no vomiting, she has liquid stool coming out of her ileostomy and filling her bag, she denies any urinary symptoms On 05/29/2019 patient's alert and oriented 3. Patient is still complaining of increased abdominal pain. Spoke to surgical services FRETTED [employer]ING INSTRUMENT REPAIRER will reevaluate patient. Patient denies any nausea or vomiting. Patient is having positive stool output through ostomy. Patient denies chest pain or shortness of breath. Patient denies nausea vomiting or diarrhea. Patient denies any urinary burning or frequency. On 05/30/2019 patient's alert and oriented 3. Patient reports improvement with abdominal pain. Per surgical services no plan for surgery. Patient has been tolerating diet. At this time patient denies chest pain or shortness breath. Patient denies nausea vomiting or diarrhea. Patient denies any urinary burning or frequency On 05/31/2019 patient's alert and oriented 3. Patient reports having abdominal pain. Patient had increased temperatures throughout night. Repeat UA has been ordered C. diff ordered. Infectious disease consulted. At this time patient denies chest pain or shortness breath. Patient denies any nausea or vomiting. Patient denies any burning with urination. Patient denies any upper respiratory symptoms On 06/01/2019 patient's alert and oriented 3. Patient's urine culture positive for E. coli. Infectious disease following. Patient maintained on Cipro. Patient still having low-grade temps 99.8. Patient's ammonia level 32. Patient denies chest pain or shortness of breath. Patient is still having some abdominal discomfort surgical services have signed off. Patient denies any urinary burning or frequency On 06/02/2019 patient's alert and oriented 3. Antibiotics switched to IV Rocephin due to resistant to Cipro per infectious disease. Patient also complaining of increased nausea today patient still having low-grade temps. Patient denies chest pain or shortness breath. Patient is having some nausea with chronic abdominal pain. Patient denies any urinary burning or frequency. On 06/03/2019 patient was seen and examined on the medical floor she is alert and oriented 3 in no apparent distress she is complaining of abdominal pain but improved since yesterday she is also complaining of lower extremity swelling otherwise she denies any complaints there is no fever or chills no headache no dizziness no chest pain no shortness of breath no cough no nausea or vomiting and no urinary symptoms On 06/04/2019 patient's alert and oriented 3. Patient still having some abdominal pain around stoma site. Patient denies chest pain or shortness breath. Patient denies nausea vomiting or diarrhea. Patient denies any urinary burning or frequency. On 06/05/2019 patient's alert and oriented 3. Patient feels much improved today. Patient feels ready to be DC'd home. Venous Doppler completed due to increased swelling showing no DVT in bilateral legs. Discussed case with infectious disease Dr. Esparza known need for antibiotics upon discharge continue nystatin for oral thrush. Patient to follow-up with CONSULTING providers and PCP for further management chronic conditions. This was discussed with patient patient verbalized understanding. Repeat labs have been ordered. This time patient denies chest pain or shortness breath. Patient denies nausea vomiting or diarrhea. Patient denies any urinary burning or frequency I performed an examination of the patient and discussed their management with the Nurse Practitioner. I have reviewed the Nurse Practitioner's notes and agree with the documented findings and plan of care Patient Condition at Discharge: Stable Plan - Discharge Summary New Discharge Prescriptions: New Nystatin 100,000 Unit/ml Susp [Mycostatin Oral Susp] 500,000 unit PO QID 5 Days #20 cup Continue Sucralfate [Carafate] 1 gm PO QID Omeprazole [PriLOSEC] 20 mg PO BID Insulin Regular, Human [NovoLIN R] 10 unit SQ AC-TID buPROPion SR [Wellbutrin SR] 150 mg PO DAILY #30 tablet.er Cholecalciferol [Vitamin D3 (25 Mcg = 1000 Iu)] 4,000 unit PO DAILY Ferrous Sulfate [Iron (65 MG Elemental)] 325 mg PO BID Insulin NPH [humuLIN N] 18 unit SQ BID vial Dicyclomine [Bentyl] 20 mg PO TID 30 Days #180 cap Lactulose [Cephulac] 45 gm PO TID Sodium Bicarbonate Tab 1,300 mg PO BID tab Rifaximin [Xifaxan] 550 mg PO BID tablet Torsemide [Demadex] 20 mg PO Q48H 30 Days #30 tab Potassium Chloride [Klor-Con 20] 20 meq PO DAILY Metoprolol Tartrate [Lopressor] 12.5 mg PO BID Zinc Oxide 20% Oint 1 applic TOPICAL BID #1 tube Magnesium Oxide [William] 500 mg PO BID #6 tablet Morphine Sulfate [Ms Contin] 15 mg PO BID Discontinued Nitrofurantoin Monohyd/M-Cryst [Macrobid] 100 mg PO BID 7 Days #14 cap Discharge Medication List Omeprazole [PriLOSEC] 20 mg PO BID 10/23/18 [History] Sucralfate [Carafate] 1 gm PO QID 10/23/18 [History] Insulin Regular, Human [NovoLIN R] 10 unit SQ AC-TID 10/24/18 [History] buPROPion SR [Wellbutrin SR] 150 mg PO DAILY #30 tablet.er 12/21/18 [Rx] Cholecalciferol [Vitamin D3 (25 Mcg = 1000 Iu)] 4,000 unit PO DAILY 01/16/19 [History] Ferrous Sulfate [Iron (65 MG Elemental)] 325 mg PO BID 01/31/19 [History] Insulin NPH [humuLIN N] 18 unit SQ BID vial 02/06/19 [Rx] Dicyclomine [Bentyl] 20 mg PO TID 30 Days #180 cap 03/31/19 [Rx] Lactulose [Cephulac] 45 gm PO TID 04/07/19 [History] Rifaximin [Xifaxan] 550 mg PO BID tablet 04/17/19 [Rx] Sodium Bicarbonate Tab 1,300 mg PO BID tab 04/17/19 [Rx] Torsemide [Demadex] 20 mg PO Q48H 30 Days #30 tab 04/17/19 [Rx] Potassium Chloride [Klor-Con 20] 20 meq PO DAILY 04/21/19 [History] Metoprolol Tartrate [Lopressor] 12.5 mg PO BID 04/30/19 [History] Magnesium Oxide [William] 500 mg PO BID #6 tablet 05/05/19 [Rx] Zinc Oxide 20% Oint 1 applic TOPICAL BID #1 tube 05/05/19 [Rx] Morphine Sulfate [Ms Contin] 15 mg PO BID 05/15/19 [History] Nystatin 100,000 Unit/ml Susp [Mycostatin Oral Susp] 500,000 unit PO QID 5 Days #20 cup 06/05/19 [Rx] Follow up Appointment(s)/Referral(s): [facility], [NON-STAFF] - As Needed Artemio Lea MD [Primary Care Provider] - 1-2 days Ambulatory/Diagnostic Orders: Complete Blood Count w/diff [LAB.AMB] Time Frame: 2 Days, Location: None Selected Comprehensive Metabolic Panel [LAB.AMB] Time Frame: 2 Days, Location: None Selected
[2019-06-05] MEDS: ZINC OXIDE 20% OINT 28.4 GM TUBE TOPICAL SCH (11:18)
[2019-06-05 11:49] LABS: Glucose,Whole Blood 145 mg/dL (75-99)
[2019-06-05 15:05] VITALS: BP 106/68; PULSE 76; RESP 16; TEMP 98.1
--- NOTE | 2019-06-05 16:10 | PN ---
PROGRESS NOTE DATE OF SERVICE: 06/05/2019 REASON FOR FOLLOWUP: 1. UTI. 2. Oral thrush. INTERVAL COURSE: The patient is currently afebrile. Patient has been complaining of abdominal pain, some nausea but no vomiting. Did have diarrhea. The patient is getting lactulose. No chest pain, shortness of breath or cough. PHYSICAL EXAMINATION: Blood pressure is 92/51 with a pulse of 82, temperature is 98.8. She is 98% on room air. General description is an elderly female up in the bed in no distress. Respiratory system: Unlabored breathing with decreased breath sounds. Heart S1, S2. Regular rate and rhythm. ABDOMEN: Soft, no tenderness. LABS: Hemoglobin 13.5, white count 3.9, BUN of 13, creatinine 1.12. DIAGNOSTIC IMPRESSION AND PLAN: 1. Patient with low-grade fever, possible urinary tract infection with 5 days of IV Rocephin. 2. Oral thrush/ for about a week. 3. Continue supportive care. MMODL / IJN: [id number] /
== END 2019-06-05 17:04 | disposition home health service (06) | DRG 389 ==
LOC: EC 12:19 → 4SSUR 16:06
PROVIDERS: ADMIT Internal Medicine; ATTEND Internal Medicine
DX: K56.7 Ileus, unspecified (principal); B37.0 Candidal stomatitis; J98.11 Atelectasis; N39.0 Urinary tract infection, site not specified; R18.8 Other ascites; C22.8 Malignant neoplasm of liver, primary, unspecified as to type; D69.59 Other secondary thrombocytopenia; E11.22 Type 2 diabetes mellitus with diabetic chronic kidney disease; K74.60 Unspecified cirrhosis of liver; N18.3 Chronic kidney disease, stage 3 (moderate); K52.9 Noninfective gastroenteritis and colitis, unspecified; B96.20 Unspecified Escherichia coli [E. coli] as the cause of diseases classified elsewhere; D50.9 Iron deficiency anemia, unspecified; E87.6 Hypokalemia; F32.9 Major depressive disorder, single episode, unspecified; F41.9 Anxiety disorder, unspecified; G89.29 Other chronic pain; I12.9 Hypertensive chronic kidney disease with stage 1 through stage 4 chronic kidney disease, or unspecified chronic kidney disease; I25.2 Old myocardial infarction; K21.9 Gastro-esophageal reflux disease without esophagitis; K43.5 Parastomal hernia without obstruction or gangrene; K57.90 Diverticulosis of intestine, part unspecified, without perforation or abscess without bleeding; Z16.23 Resistance to quinolones and fluoroquinolones; Z79.4 Long term (current) use of insulin; Z79.899 Other long term (current) drug therapy; Z93.2 Ileostomy status; Z90.710 Acquired absence of both cervix and uterus; Z87.891 Personal history of nicotine dependence; Z87.11 Personal history of peptic ulcer disease; Z88.5 Allergy status to narcotic agent; Z88.0 Allergy status to penicillin; Z88.8 Allergy status to other drugs, medicaments and biological substances; Z92.21 Personal history of antineoplastic chemotherapy; Z87.440 Personal history of urinary (tract) infections; Z86.14 Personal history of Methicillin resistant Staphylococcus aureus infection; Z90.49 Acquired absence of other specified parts of digestive tract; Z91.19 Patient's noncompliance with other medical treatment and regimen; Z82.49 Family history of ischemic heart disease and other diseases of the circulatory system
CPT/HCPCS: 36415; 71046; 74018; 74176; 80053; 81003; 82140; 82150; 83690; 84132; 85025; 85610; 85730; 87040; 87077; 87086; 87186; 87324; 93970; 96361; 96374; 96375; 99285

== ENCOUNTER 2019-06-12 13:49 | Inpatient (IN) | payer MEDICARE ==
[2019-06-12] MEDS ORDERED: ONDANSETRON 4 MG/2 ML VIAL IVP PRN (14:14)
[2019-06-12] MEDS ORDERED: NALOXONE 0.4 MG/ML 1 ML VIAL IV PRN (14:14)
[2019-06-12] MEDS ORDERED: ACETAMINOPHEN TAB 325 MG TAB PO PRN (14:14)
--- NOTE | 2019-06-12 14:14 | ED ---
General Adult HPI - General Chief complaint: Weakness Stated complaint: Abnormal Labs, Weakness Time Seen by Provider: 06/12/19 13:59 Source: patient, EMS Mode of arrival: EMS Limitations: no limitations - History of Present Illness Initial comments: Dictation was produced using [employer] dictation software. please excuse any grammatical, word or spelling errors. Chief Complaint: 73-year-old female presents via transfer from [facility] for hypokalemia and confusion. History of Present Illness: His 73-year-old female she was seen initially at [facility]. She presents today for weakness, confusion. Patient was evaluated there she was found to have an elevated troponin, high ammonia level and low potassium. She was treated accordingly. Patient is a history of liver cancer. She has a history of hepatic encephalopathy. Denies any ACS-type symptoms however had an elevated troponin. Dr. Recinos [facility] did not start any heparin. Patient is transferred to our facility because she insisted on coming here instead of going to [facility]. Patient was found to have a potassium of 2.4, troponin of 0.05 ammonia 94 lactic acidosis of 3. Patient evaluated at bedside 5 in stable medical condition. Patient has no complaints at this time. The ROS documented in this emergency department record has been reviewed and confirmed by me. Those systems with pertinent positive or negative responses have been documented in the HPI. All other systems are other negative and/or noncontributory. PHYSICAL EXAM: General Impression: Alert and oriented x3, not in acute distress HEENT: Normocephalic atraumatic, extra-ocular movements intact, pupils equal and reactive to light bilaterally, mucous membranes moist. Cardiovascular: Heart regular rate and rhythm, S1&S2 audible, no murmurs, rubs or gallops Chest: Lungs clear to auscultation bilaterally, no rhonchi, no wheeze, no rales Abdomen: Bowel sounds present, abdomen soft, non-tender, non-distended, no organomegaly Musculoskeletal: Pulses present and equal in all extremities, no peripheral edema Motor: no focal deficits noted Neurological: CN II-XII grossly intact, no focal motor or sensory deficits noted Skin: Intact with no visualized rashes Psych: Normal affect and mood ED course:73 yo Female transferred from [facility] for hypokalemia, elevated troponin, lactic acidosis vital signs upon arrival to the patient's. Repeat EKG was performed showing no acute processes. Patient evaluated at bedside had no complaints. Patient to be admitted to Dr. lea for actually replacement and further medical monitoring. EKG interpretation: Ventricular rate 71, normal sinus rhythm, OH interval 142, care is 146, QTC 567.. EKG shows prolonged QT is likely secondary to hypokalemia. - Related Data Home Medications Medication Instructions Recorded Confirmed Omeprazole [PriLOSEC] 20 mg PO BID 10/23/18 05/24/19 Sucralfate [Carafate] 1 gm PO QID 10/23/18 05/24/19 Insulin Regular, Human [NovoLIN R] 10 unit SQ AC-TID 10/24/18 05/24/19 Cholecalciferol [Vitamin D3 (25 4,000 unit PO DAILY 01/16/19 05/24/19 Mcg = 1000 Iu)] Ferrous Sulfate [Iron (65 MG 325 mg PO BID 01/31/19 05/24/19 Elemental)] Lactulose [Cephulac] 45 gm PO TID 04/07/19 05/24/19 Potassium Chloride [Klor-Con 20] 20 meq PO DAILY 04/21/19 05/24/19 Metoprolol Tartrate [Lopressor] 12.5 mg PO BID 04/30/19 05/24/19 Morphine Sulfate [Ms Contin] 15 mg PO BID 05/15/19 05/24/19 Previous Rx's Medication Instructions Recorded buPROPion SR [Wellbutrin SR] 150 mg PO DAILY #30 tablet.er 12/21/18 Insulin NPH [humuLIN N] 18 unit SQ BID vial 02/06/19 Dicyclomine [Bentyl] 20 mg PO TID 30 Days #180 cap 03/31/19 Rifaximin [Xifaxan] 550 mg PO BID tablet 04/17/19 Sodium Bicarbonate Tab 1,300 mg PO BID tab 04/17/19 Torsemide [Demadex] 20 mg PO Q48H 30 Days #30 tab 04/17/19 Magnesium Oxide [William] 500 mg PO BID #6 tablet 05/05/19 Zinc Oxide 20% Oint 1 applic TOPICAL BID #1 tube 05/05/19 Nystatin 100,000 Unit/ml Susp 500,000 unit PO QID 5 Days #20 cup 06/05/19 [Mycostatin Oral Susp] Allergies Allergy/AdvReac Type Severity Reaction Status Date / Time amlodipine Allergy Rash/Hives Verified 05/24/19 12:43 oxycodone Allergy Rash/Hives Verified 05/24/19 12:43 Penicillins Allergy Rash/Hives Verified 05/24/19 12:43 hydromorphone [From Dilaudid] AdvReac Mild tactile Verified 05/24/19 12:43 disturbance GREG Inhibitors AdvReac Cough Verified 05/24/19 12:43 sodium dodecyclbenzene Allergy Rash/Hives Uncoded 05/24/19 12:29 sulfonate Review of Systems ROS Statement: Those systems with pertinent positive or pertinent negative responses have been documented in the HPI. ROS Other: All systems not noted in ROS Statement are negative. Past Medical History Past Medical History: Cancer, Diabetes Mellitus, Hypertension, Liver Disease, Myocardial Infarction ([place]), Renal Disease Additional Past Medical History / Comment(s): Hepatocellular liver cancer with chemo immobilization-last time being 2017, ascities with paracentesis's , nonalcoholic liver cirrhosis, chronic pancytopenia, chronic elevated ammonia levels, hepatic encephalopathy, chronic elevated LFTs, chronic abdominal pain, stomach ulcer, diverticular disease with ileostomy, IDDM type II, iron anemia, CKD stage III, nonsustained vtach, UTI, high ammonia levels Last Myocardial Infarction Date:: unk History of Any Multi-Drug Resistant Organisms: MRSA, VRE Date of last positivie culture/infection: 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 Past Anesthesia/Blood Transfusion Reactions: No Reported Reaction Past Psychological History: Anxiety, Depression Smoking Status: Never smoker Past Alcohol Use History: None Reported Past Drug Use History: None Reported - Past Family History Mother History Unknown: Yes Family Medical History: Congestive Heart Failure (CHF) Additional Family Medical History / Comment(s): Mother is 94 yrs old. Father Family Medical History: Chest Pain / Angina Additional Family Medical History / Comment(s): Father is . General Exam Limitations: no limitations Course Vital Signs 06/12/19 06/12/19 13:51 14:03 Temperature 98.6 F Pulse Rate 66 Respiratory 20 20 Rate Blood Pressure 108/54 O2 Sat by Pulse 100 Oximetry Disposition Clinical Impression: Hypokalemia, Hyperammonemia Disposition: ADMITTED IP TO THIS [facility] Condition: Fair Referrals: Artemio Lea MD [Primary Care Provider] - 1-2 days Decision Time: 14:13
[2019-06-12] MEDS ORDERED: LACTULOSE 20 GM/30 ML CUP PO ONE (14:16)
[2019-06-12] MEDS ORDERED: POTASSIUM CHLORIDE ER 20 MEQ TAB.ER PO STA (14:19)
[2019-06-12] MEDS: SODIUM CHLORIDE 0.9% 1,000 ML IV SCH (14:35)
[2019-06-12] MEDS: POTASSIUM CHLORIDE 20 MEQ in WATER FOR INJECTION 1 100ML.BAG IVPB SCH ×2 (14:37→17:04)
[2019-06-12] MEDS ORDERED: MORPHINE SULFATE 2 MG/ML SYRINGE IVP STA (15:05)
[2019-06-12] MEDS ORDERED: clonazePAM 0.5 MG TAB PO PRN (15:27)
--- NOTE | 2019-06-12 15:43 | P.HPIM ---
History of Present Illness H&P Date: 06/12/19 This is a 73-year-old female patient who presented with complaints of nausea vomiting and feeling weak. Patient originally presented to [facility] where she was found to have a low potassium 2.4. Patient reports that she has been feeling sick to her stomach during the day today. Patient she will be healing well. Patient ammonia also elevated at 94. troponin also elevated at 0.118. Patient has a past medical history of hepatocellular liver cancer with chemo mobilization, diabetes mellitus, hypertension, liver disease, myocardial infarction, chronic renal disease, anxiety, depression, bowel resection, cholecystectomy and MRSA and VRE. Potassium replacement ordered. CBC CMP, amylase, lipase lactic acid , and troponins ordered. Cardiology consult placed. Urinary analysis and chest x-ray ordered. At this time patient is complaining of nausea and vomiting. Patient denies any chest pain. Patient is complaining about occasional short of breath. Patient denies urinary burning or frequency Review of Systems please refer to HPI otherwise unremarkable Past Medical History Past Medical History: Cancer, Diabetes Mellitus, Hypertension, Liver Disease, Myocardial Infarction ([place]), Renal Disease Additional Past Medical History / Comment(s): Hepatocellular liver cancer with chemo immobilization-last time being 2017, ascities with paracentesis's , nonalcoholic liver cirrhosis, chronic pancytopenia, chronic elevated ammonia levels, hepatic encephalopathy, chronic elevated LFTs, chronic abdominal pain, stomach ulcer, diverticular disease with ileostomy, IDDM type II, iron anemia, CKD stage III, nonsustained vtach, UTI, high ammonia levels Last Myocardial Infarction Date:: unk History of Any Multi-Drug Resistant Organisms: MRSA, VRE Date of last positivie culture/infection: 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 Past Anesthesia/Blood Transfusion Reactions: No Reported Reaction Past Psychological History: Anxiety, Depression Smoking Status: Never smoker Past Alcohol Use History: None Reported Past Drug Use History: None Reported - Past Family History Mother History Unknown: Yes Family Medical History: Congestive Heart Failure (CHF) Additional Family Medical History / Comment(s): Mother is 94 yrs old. Father Family Medical History: Chest Pain / Angina Additional Family Medical History / Comment(s): Father is . Medications and Allergies Home Medications Medication Instructions Recorded Confirmed Type Omeprazole [PriLOSEC] 20 mg PO BID 10/23/18 06/12/19 History Sucralfate [Carafate] 1 gm PO QID 10/23/18 06/12/19 History Insulin Regular, Human [NovoLIN R] 10 unit SQ AC-TID 10/24/18 06/12/19 History Cholecalciferol [Vitamin D3 (25 4,000 unit PO DAILY 01/16/19 06/12/19 History Mcg = 1000 Iu)] Ferrous Sulfate [Iron (65 MG 325 mg PO BID 01/31/19 06/12/19 History Elemental)] Insulin NPH [humuLIN N] 18 unit SQ BID vial 02/06/19 06/12/19 Rx Magnesium Oxide [William] 500 mg PO BID #6 tablet 05/05/19 06/12/19 Rx Morphine Sulfate [Ms Contin] 15 mg PO BID 05/15/19 06/12/19 History Dicyclomine [Bentyl] 10 mg PO TID 06/12/19 06/12/19 History Lactulose 67.5 gm PO TID 06/12/19 06/12/19 History Metoprolol Tartrate [Lopressor] 6.25 mg PO DAILY 06/12/19 06/12/19 History Ondansetron Odt [Zofran ODT] 8 mg SL DAILY PRN 06/12/19 06/12/19 History buPROPion HCL [Wellbutrin SR] 150 mg PO BID 06/12/19 06/12/19 History clonazePAM [KlonoPIN] 0.5 mg PO Q8HR PRN 06/12/19 06/12/19 History Allergies Allergy/AdvReac Type Severity Reaction Status Date / Time amlodipine Allergy Rash/Hives Verified 06/12/19 15:14 oxycodone Allergy Rash/Hives Verified 06/12/19 15:14 Penicillins Allergy Rash/Hives Verified 06/12/19 15:14 hydromorphone [From Dilaudid] AdvReac Mild tactile Verified 06/12/19 15:14 disturbance GREG Inhibitors AdvReac Cough Verified 06/12/19 15:14 sodium dodecyclbenzene Allergy Rash/Hives Uncoded 05/24/19 12:29 sulfonate Physical Exam Vitals: Vital Signs Temp Pulse Resp BP Pulse Ox 06/12/19 14:47 73 18 98/62 100 06/12/19 14:03 20 06/12/19 13:51 98.6 F 66 20 108/54 100 Intake and Output 06/12/19 06/12/19 06/12/19 06:59 14:59 22:59 Other: Weight 90.718 kg Head normocephalic Neck supple Lungs clear to auscultation bilaterally no wheezing or crackles Heart regular rate and rhythm S1-S2, no rub or gallop Abdomen is soft nontender nondistended positive bowel sounds no hepatosplenomegaly. Right lower quadrant ostomy place Extremities no edema Neuro alert and orientated to 3 Results Labs: Abnormal Lab Results - Last 24 Hours (Table) 06/12/19 Range/Units 14:25 Troponin I 0.118 H* (0.000-0.034) ng/mL Assessment and Plan Assessment: 1. Hypokalemia. Potassium level at [facility] 2.4. Orders to replace per protocol recheck ordered. Magnesium level ordered 2. Elevated ammonia level. Lactulose and Xifaxan resumed. Ammonia level daily 3. Elevated troponin. Troponin 0.118. Cardiology service is consulted. Serial troponins ordered 4. Elevated lactic acid. Lactic acid 3.0. Repeat lactic acid ordered. CBC ordered. UA and chest x-ray ordered 5. Nausea and vomiting. Amylase and lipase levels ordered 6. History of nonalcoholic liver cirrhosis 7. History of hepatocellular carcinoma status post embolization 2012 2015 2017. 8. Chronic kidney disease stage III. CMP has been ordered 9. History of diverticulitis with ileostomy placement to [facility]. Patient was recently evaluated by our surgical services team no intervention at that time 10. Chronic thrombocytopenia due to known liver cancer secondary to chronic liver cirrhosis 11. Insulin-dependent diabetes mellitus. Home meds resumed 12. Iron deficiency anemia 13. Chronic elevated LFTs due to chronic liver malignancy 14. History of depression DVT prophylaxis SCDs due to chronic thrombocytopenia. GI prophylaxis Pepcid Time with Patient: Greater than 30 (Greater than 60% of the total time spent in counseling and coordination of care. I performed an examination of the patient and discussed their management with the Nurse Practitioner. I have reviewed the Nurse Practitioner's notes and agree with the documented findings and plan of care)
--- NOTE | 2019-06-12 16:02 | XR ---
EXAMINATION TYPE: XR chest 2V DATE OF EXAM: 06/12/2019 COMPARISON: Prior chest x-ray 05/30/2019 HISTORY: Cough TECHNIQUE: Frontal and lateral views of the chest are obtained. FINDINGS: There is pleural effusion, or pneumothorax seen. The cardiac silhouette size is within no rmal limits. The osseous structures are intact. There are overlying cardiac leads. Patient is rotat ed. Aorta is dense. Difficult to exclude posterior airspace disease IMPRESSION: Difficult to exclude a posterior pneumonia, rotated exam, consider PA and lateral chest x-ray for better evaluation
[2019-06-12 17:15] LABS: Appearance,Urine Clear (Clear); Bilirubin,Urine Negative (Negative); Blood,Urine Negative (Negative); Color,Urine Yellow; Glucose,Urine (UA) Negative (Negative); Ketones,Urine Negative (Negative); Leukocyte Esterase,Urine Negative (Negative); Nitrite,Urine Negative (Negative); Protein,Urine Negative (Negative); Specific Gravity,Urine 1.008 (1.001-1.035); Urobilinogen,Urine <2.0 mg/dL (<2.0)
[2019-06-12 17:53] LABS: Glucose,Whole Blood 138 mg/dL (75-99)
[2019-06-12] MEDS: INSULIN REGULAR 100 UNIT/ML VIAL SQ SCH (17:59)
[2019-06-12] MEDS: DICYCLOMINE 10 MG CAP PO SCH ×2 (18:00→22:40)
[2019-06-12] MEDS: LACTULOSE 20 GM/30 ML CUP PO SCH ×2 (18:37→23:27)
[2019-06-12] MEDS: SUCRALFATE 1 GM TAB PO SCH ×2 (20:11→23:27)
[2019-06-12 21:03] LABS: Albumin 2.6 g/dL (3.5-5.0); Calcium 7.7 mg/dL (8.4-10.2); Potassium 2.9 mmol/L (3.5-5.1); Total Bilirubin 2.6 mg/dL (0.2-1.3); Total Protein 5.6 g/dL (6.3-8.2)
[2019-06-12 21:05] LABS: Basophils % (A) 1 %; Eosinophils # (A) 0.2 k/uL (0-0.7); Eosinophils % (A) 4 %; HCT 36.8 % (34.0-46.0); Lymphocytes % (A) 20 %; MCH 34.8 pg (25.0-35.0); MCHC 32.5 g/dL (31.0-37.0); MCV 106.9 fL (80.0-100.0); Macrocytosis Moderate; Mean Platelet Volume 8.7; Monocytes # (A) 0.3 k/uL (0-1.0); Monocytes % (A) 6 %; Neutrophils # (A) 3.3 k/uL (1.3-7.7); Neutrophils % (A) 67 %; Poikilocytosis Slight; RBC 3.44 m/uL (3.80-5.40); RDW 15.3 % (11.5-15.5)
[2019-06-12 21:10] LABS: Platelet Count 80 k/uL (150-450)
[2019-06-12] MEDS: FERROUS SULFATE 325 MG TAB PO SCH (22:40)
[2019-06-12 22:41] LABS: Glucose,Whole Blood 181 mg/dL (75-99)
[2019-06-12] MEDS: INSULIN NPH 300 UNIT/3 ML VIAL SQ SCH (22:41)
[2019-06-12] MEDS: MAGNESIUM OXIDE 400 MG TAB PO SCH (22:41)
[2019-06-12] MEDS: RIFAXIMIN 550 MG TABLET PO SCH (22:44)
[2019-06-12] MEDS: buPROPion SR 150 MG TABLET.ER PO SCH (22:46)
[2019-06-12] MEDS: MORPHINE SULFATE ER 15 MG TABLET PO SCH (23:26)
[2019-06-13 01:42] VITALS: BMI 29.5
[2019-06-13 06:39] LABS: Glucose,Whole Blood 176 mg/dL (75-99)
[2019-06-13] MEDS: PANTOPRAZOLE 40 MG TABLET PO SCH ×2 (06:41→10:25)
[2019-06-13] MEDS: INSULIN REGULAR 100 UNIT/ML VIAL SQ SCH ×3 (09:00→17:24)
[2019-06-13 09:16] LABS: Albumin 2.4 g/dL (3.5-5.0); Calcium 7.8 mg/dL (8.4-10.2); Magnesium 1.6 mg/dL (1.6-2.3); Total Bilirubin 2.3 mg/dL (0.2-1.3); Total Protein 5.4 g/dL (6.3-8.2)
[2019-06-13 09:19] LABS: Basophils % (A) 1 %; Eosinophils # (A) 0.3 k/uL (0-0.7); Eosinophils % (A) 6 %; HCT 33.2 % (34.0-46.0); HGB 11.2 gm/dL (11.4-16.0); Lymphocytes # (A) 1.1 k/uL (1.0-4.8); Lymphocytes % (A) 25 %; MCH 35.5 pg (25.0-35.0); MCHC 33.6 g/dL (31.0-37.0); MCV 105.8 fL (80.0-100.0); Macrocytosis Moderate; Mean Platelet Volume 8.6; Monocytes # (A) 0.2 k/uL (0-1.0); Monocytes % (A) 6 %; Neutrophils # (A) 2.6 k/uL (1.3-7.7); Neutrophils % (A) 60 %; Poikilocytosis Slight; RBC 3.14 m/uL (3.80-5.40); RDW 15.4 % (11.5-15.5); WBC 4.3 k/uL (3.8-10.6)
[2019-06-13 09:25] LABS: Potassium 2.5 mmol/L (3.5-5.1)
[2019-06-13 09:26] LABS: Platelet Count 78 k/uL (150-450)
[2019-06-13 09:39] LABS: Lactic Acid, Venous 1.7 mmol/L (0.7-2.0)
[2019-06-13] MEDS ORDERED: Potassium Replacement Protocol 1 EACH MISC MISCELLANE PRN (09:55)
[2019-06-13 10:12] LABS: Glucose,Whole Blood 112 mg/dL (75-99)
[2019-06-13] MEDS: LACTULOSE 20 GM/30 ML CUP PO SCH ×3 (10:22→22:00)
[2019-06-13] MEDS: METOPROLOL TARTRATE 12.5 MG TAB PO SCH (10:24)
[2019-06-13] MEDS: DICYCLOMINE 10 MG CAP PO SCH ×3 (10:24→22:29)
[2019-06-13] MEDS: MAGNESIUM OXIDE 400 MG TAB PO SCH ×2 (10:25→22:28)
[2019-06-13] MEDS: CHOLECALCIFEROL 1,000 UNIT TAB PO SCH (10:25)
[2019-06-13] MEDS: MORPHINE SULFATE ER 15 MG TABLET PO SCH ×2 (10:26→22:28)
[2019-06-13] MEDS: FERROUS SULFATE 325 MG TAB PO SCH ×2 (10:27→22:28)
--- NOTE | 2019-06-13 10:27 | P.CRDCN ---
History of Present Illness Consult date: 06/13/19 Requesting physician: Artemio Lea Reason for Consult (text): Abnormal troponin Chief complaint: Weakness History of present illness: This is a 73-year-old female with past medical history significant for hypertension, hepatocellular carcinoma status post chemoembolization, recurrent ascites and frequent paracentesis, nonalcoholic liver cirrhosis, diabetes, hyperlipidemia, prior nicotine dependence, chronic kidney disease, frequent UTIs with MRSA. She's had several admissions to the hospital with symptoms of abdominal discomfort associated with gastroenteritis. Patient went to [facility] to have some lab work done, she states that she was feeling weak and having some mild nausea. It was found to [facility] that her potassium level was quite low, they also allen a troponin there which came back to be abnormal, patient was advised to go to a [facility], she requested to be transferred here. Her EKG on arrival here showed a normal sinus rhythm with a r ight bundle branch block pattern and nonspecific ST-T wave changes. Chest x-ray difficult to exclude posterior pneumonia, consider PA and lateral. Blood pressure on arrival here 108/50 with a heart rate in the 60s, 100% on room air. White blood cell count is normal, hemoglobin 11.2, platelet count 80 on admission, 78 this morning. Potassium on arrival 2.9, 2.5 this morning, BUN 13, creatinine 1.1. Plasma lactic acid 3.1, magnesium 1.6. Total bilirubin 2.3, AST 54, ALT 28, alk phos 179, ammonia 66.. Troponin 0.118, 0.120, 0.124, 0.111. Upon reviewing patient's troponins back to December of this year, she has had recurrent admissions to the hospital, troponins have consistently been in this abnormal range. Patient did have an echocardiogram with Doppler study performed in March which revealed an ejection fraction of 50-55%. Patient denies having any chest discomfort, she is complaining of some discomfort that intermittently as interscapular area, goes up her neck and into her head causing a severe headache. This lasts a couple of minutes, it comes and goes once or twice a week according to her. Past Medical History Past Medical History: Cancer, Diabetes Mellitus, Hypertension, Liver Disease, Myocardial Infarction (PR), Renal Disease Additional Past Medical History / Comment(s): Hepatocellular liver cancer with chemo immobilization-last time being 2017, ascities with paracentesis's , nonalcoholic liver cirrhosis, chronic pancytopenia, chronic elevated ammonia levels, hepatic encephalopathy, chronic elevated LFTs, chronic abdominal pain, stomach ulcer, diverticular disease with ileostomy, IDDM type II, iron anemia, CKD stage III, nonsustained vtach, UTI, high ammonia levels Last Myocardial Infarction Date:: unk History of Any Multi-Drug Resistant Organisms: MRSA, VRE Date of last positivie culture/infection: 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 Past Anesthesia/Blood Transfusion Reactions: No Reported Reaction Past Psychological History: Anxiety, Depression Additional Psychological History / Comment(s): pt resides at [place] [phone] Reformed smoker. . Retired. No experience. No animal exposures Smoking Status: Former smoker Past Alcohol Use History: None Reported Additional Past Alcohol Use History / Comment(s): started smoking 1962 and quit 1965 Past Drug Use History: None Reported - Past Family History Mother History Unknown: Yes Family Medical History: Congestive Heart Failure (CHF) Additional Family Medical History / Comment(s): Mother is 94 yrs old. Father Family Medical History: Chest Pain / Angina Additional Family Medical History / Comment(s): Father is . Medications and Allergies Home Medications Medication Instructions Recorded Confirmed Type Omeprazole [PriLOSEC] 20 mg PO BID 10/23/18 06/12/19 History Sucralfate [Carafate] 1 gm PO QID 10/23/18 06/12/19 History Insulin Regular, Human [NovoLIN R] 10 unit SQ AC-TID 10/24/18 06/12/19 History Cholecalciferol [Vitamin D3 (25 4,000 unit PO DAILY 01/16/19 06/12/19 History Mcg = 1000 Iu)] Ferrous Sulfate [Iron (65 MG 325 mg PO BID 01/31/19 06/12/19 History Elemental)] Insulin NPH [humuLIN N] 18 unit SQ BID vial 02/06/19 06/12/19 Rx Magnesium Oxide [William] 500 mg PO BID #6 tablet 05/05/19 06/12/19 Rx Morphine Sulfate [Ms Contin] 15 mg PO BID 05/15/19 06/12/19 History Dicyclomine [Bentyl] 10 mg PO TID 06/12/19 06/12/19 History Lactulose 67.5 gm PO TID 06/12/19 06/12/19 History Metoprolol Tartrate [Lopressor] 6.25 mg PO DAILY 06/12/19 06/12/19 History Ondansetron Odt [Zofran ODT] 8 mg SL DAILY PRN 06/12/19 06/12/19 History buPROPion HCL [Wellbutrin SR] 150 mg PO BID 06/12/19 06/12/19 History clonazePAM [KlonoPIN] 0.5 mg PO Q8HR PRN 06/12/19 06/12/19 History Allergies Allergy/AdvReac Type Severity Reaction Status Date / Time amlodipine Allergy Rash/Hives Verified 06/12/19 15:14 oxycodone Allergy Rash/Hives Verified 06/12/19 15:14 Penicillins Allergy Rash/Hives Verified 06/12/19 15:14 hydromorphone [From Dilaudid] AdvReac Mild tactile Verified 06/12/19 15:14 disturbance GREG Inhibitors AdvReac Cough Verified 06/12/19 15:14 sodium dodecyclbenzene Allergy Rash/Hives Uncoded 05/24/19 12:29 sulfonate Physical Exam Vitals: Vital Signs Temp Pulse Pulse Resp BP BP Pulse Ox 06/13/19 09:18 98.4 F 72 16 121/75 100 06/13/19 08:00 72 16 06/13/19 03:50 97.9 F 75 16 121/63 98 06/13/19 01:28 98.1 F 71 16 129/61 96 06/12/19 23:30 78 19 119/69 06/12/19 23:00 68 18 112/68 06/12/19 22:00 65 17 117/82 06/12/19 19:35 70 19 120/63 99 06/12/19 16:59 68 18 115/71 99 06/12/19 14:47 73 18 98/62 100 06/12/19 14:03 20 06/12/19 13:51 98.6 F 66 20 108/54 100 Intake and Output 06/12/19 06/13/19 06/13/19 22:59 06:59 14:59 Intake Total 200 20 Balance 200 20 Intake: IV 20 Sodium Chloride 0.9% 1, 20 000 ml @ 20 mls/hr IV . Q24H [facility] Rx#:[id number] Oral 200 Other: Voiding Method Toilet Toilet Weight 96.5 kg PHYSICAL EXAMINATION: GENERAL: 73-year-old female in no acute distress at the time of my examination HEENT: Head is atraumatic, normocephalic. Pupils equal, round. Sclera anicteric. Conjunctiva are clear. Mucous membranes of the mouth are moist. Neck is supple. There is no elevated jugular venous pressure. No carotid bruit is heard. HEART EXAMINATION: Heart S1 and S2 with systolic murmur is heard CHEST EXAMINATION: Lungs are clear to auscultation and precussion. No chest wall tenderness is noted on palpation or with deep breathing. ABDOMEN: Soft, obese, nontender. Bowel sounds are heard. No organomegaly noted. Ileostomy in place EXTREMITIES: 2+ peripheral pulses with no evidence of peripheral edema and no calf tenderness noted. NEUROLOGIC patient is awake, alert and oriented 3 . . Results 06/13/19 08:32 06/13/19 08:32 Cardiac Enzymes 06/12/19 06/12/19 06/12/19 Range/Units 14:25 20:38 20:38 AST 56 H (14-36) U/L Troponin I 0.118 H* 0.120 H* (0.000-0.034) ng/mL 06/13/19 06/13/19 06/13/19 Range/Units 01:55 08:32 08:32 AST 54 H (14-36) U/L Troponin I 0.124 H* 0.111 H* (0.000-0.034) ng/mL CBC 06/12/19 06/13/19 Range/Units 20:38 08:32 WBC 5.0 4.3 (3.8-10.6) k/uL RBC 3.44 L 3.14 L (3.80-5.40) m/uL Hgb 12.0 11.2 L (11.4-16.0) gm/dL Hct 36.8 33.2 L (34.0-46.0) % Plt Count 80 L 78 L (150-450) k/uL Comprehensive Metabolic Panel 06/12/19 06/13/19 Range/Units 20:38 08:32 Sodium 137 138 (137-145) mmol/L Potassium 2.9 L 2.5 L* (3.5-5.1) mmol/L Chloride 101 103 (98-107) mmol/L Carbon Dioxide 28 29 (22-30) mmol/L BUN 14 13 (7-17) mg/dL Creatinine 1.22 H 1.11 H (0.52-1.04) mg/dL Glucose 205 H 131 H (74-99) mg/dL Calcium 7.7 L 7.8 L (8.4-10.2) mg/dL AST 56 H 54 H (14-36) U/L ALT 30 28 (9-52) U/L Alkaline Phosphatase 182 H 179 H (38-126) U/L Total Protein 5.6 L 5.4 L (6.3-8.2) g/dL Albumin 2.6 L 2.4 L (3.5-5.0) g/dL Current Medications Generic Name Dose Route Start Last Admin Trade Name Freq PRN Reason Stop Dose Admin Acetaminophen 650 mg 06/12/19 14:14 Tylenol Tab PO Q6HR PRN Mild Pain or Fever > 100.5 Bupropion HCl 150 mg 06/12/19 21:00 06/12/19 22:46 Wellbutrin Sr PO 150 mg BID JENNY Administration Cholecalciferol 4,000 unit 06/13/19 09:00 Vitamin D3 (25 Mcg = 1000 Iu) PO DAILY JENNY Clonazepam 0.5 mg 06/12/19 15:27 Klonopin PO Q8HR PRN Anxiety Dicyclomine HCl 10 mg 06/12/19 16:00 06/12/19 22:40 Bentyl PO 10 mg TID JENNY Administration Ferrous Sulfate 325 mg 06/12/19 21:00 06/12/19 22:40 Feosol PO 325 mg BID JENNY Administration Sodium Chloride 1,000 mls @ 20 mls/hr 06/12/19 14:15 06/12/19 14:35 Saline 0.9% IV 20 mls/hr .Q24H JENNY Administration Insulin Human NPH 18 unit 06/12/19 21:00 06/12/19 22:41 Humulin N SQ 18 unit BID JENNY Administration Insulin Human Regular 10 unit 06/12/19 17:30 06/12/19 17:59 Humulin R SQ 10 unit AC-TID JENNY Administration Lactulose 45 gm 06/12/19 16:00 06/12/19 23:27 Cephulac PO 45 gm TID JENNY Administration Magnesium Oxide 400 mg 06/12/19 21:00 06/12/19 22:41 Mag-Ox PO 400 mg BID JENNY Administration Metoprolol Tartrate 6.25 mg 06/13/19 09:00 Lopressor PO DAILY [facility] Miscellaneous Information 1 each 06/13/19 09:55 Potassium Per Protocol MISCELLANE DAILY PRN Per Protocol Protocol Morphine Sulfate 15 mg 06/12/19 21:00 06/12/19 23:26 Ms Contin PO 15 mg BID [facility] Administration Naloxone HCl 0.2 mg 06/12/19 14:14 Narcan IV Q2M PRN Opioid Reversal Ondansetron HCl 4 mg 06/12/19 14:14 Zofran IVP Q8HR PRN Nausea And Vomiting Pantoprazole Sodium 40 mg 06/13/19 07:30 06/13/19 06:41 Protonix PO Not Given AC-BRKT [facility] Potassium Chloride 20 meq 06/13/19 09:00 K-Dur 20 PO DAILY [facility] Potassium Chloride 20 meq 06/13/19 10:00 K-Dur 20 PO 06/13/19 12:01 Q1HR [facility] Protocol Rifaximin 550 mg 06/12/19 21:00 06/12/19 22:44 Xifaxan PO 07/12/19 21:01 550 mg BID [facility] Administration Sucralfate 1 gm 06/12/19 18:00 06/12/19 23:27 Carafate PO 1 gm QID [facility] Administration Intake and Output 06/12/19 06/13/19 06/13/19 22:59 06:59 14:59 Intake Total 200 20 Balance 200 20 Intake: IV 20 Sodium Chloride 0.9% 1, 20 000 ml @ 20 mls/hr IV . Q24H [facility] Rx#:[id number] Oral 200 Other: Voiding Method Toilet Toilet Weight 96.5 kg Patient Weight 06/14/19 06:59 Weight 96.5 kg 06/13/19 08:32 06/13/19 08:32 EKG Interpretations (text) EKG shows a normal sinus rhythm with right bundle branch block pattern and nonspecific ST-T wave changes. Assessment and Plan Plan: Assessment and plan #1 abdominal discomfort , With associated weakness #2 non-PR elevated troponin secondary to chronic kidney disease #3 history of hepatocellular carcinoma status post chemoembolization #4 nonalcoholic liver cirrhosis with frequent paracentesis #5 history of pancytopenia #6 chronic kidney disease #7 diabetes #8 hyperlipidemia #9 history of prior ventricular tachycardia #10 hypokalemia #11 hypomagnesemia Plan Patient has had multiple recurrent admissions to the hospital, troponin consistently is within this abnormal range likely secondary to her abnormal renal function. She denies any chest discomfort. we will do a limited echocardiogram with Doppler study. continue current medications and replace her potassium and magnesium. DNP note has been reviewed, I agree with a documented findings and plan of care. Patient was seen and examined.
[2019-06-13] MEDS: SUCRALFATE 1 GM TAB PO SCH ×4 (10:28→22:29)
[2019-06-13] MEDS: POTASSIUM CHLORIDE ER 20 MEQ TAB.ER PO SCH ×6 (10:28→18:17)
[2019-06-13] MEDS: MAGNESIUM SULFATE-D5W PMX 1 GM in DEXTROSE/WATER 1 100ML.BAG IVPB SCH ×2 (10:36→11:59)
[2019-06-13] MEDS: INSULIN NPH 300 UNIT/3 ML VIAL SQ SCH ×2 (10:44→22:00)
--- NOTE | 2019-06-13 11:00 | P.PN ---
Subjective Progress Note Date: 06/13/19 This is a 73-year-old female patient who presented with complaints of nausea vomiting and feeling weak. Patient originally presented to [facility] where she was found to have a low potassium 2.4. Patient reports that she has been feeling sick to her stomach during the day today. Patient she will be healing well. Patient ammonia also elevated at 94. troponin also elevated at 0.118. Patient has a past medical history of hepatocellular liver cancer with chemo mobilization, diabetes mellitus, hypertension, liver disease, myocardial infarction, chronic renal disease, anxiety, depression, bowel resection, cholecystectomy and MRSA and VRE. Potassium replacement ordered. CBC CMP, amylase, lipase lactic acid , and troponins ordered. Cardiology consult placed. Urinary analysis and chest x-ray ordered. At this time patient is complaining of nausea and vomiting. Patient denies any chest pain. Patient is complaining about occasional short of breath. Patient denies urinary burning or frequency on 06/13/2019 patient is feeling slightly improved from yesterday. Patient is alert and oriented 3. Potassium remains low at 2.5 we'll replace per protocol and recheck today. Patient at this time states her nausea and vomiting has improved. Amylase and lipase within normal limits. Cardiology services have been consulted for elevated troponins. At this time patient denies chest pain or shortness breath. Patient denies nausea vomiting or diarrhea. Patient denies any urinary burning or frequency. Objective - Vital Signs Vital signs: Vital Signs Temp 98.4 F 06/13/19 09:44 Pulse 78 06/13/19 09:44 Resp 16 06/13/19 09:44 BP 119/69 06/13/19 09:44 Pulse Ox 100 06/13/19 09:44 Intake & Output 06/12/19 06/13/19 06/13/19 18:59 06:59 18:59 Intake Total 200 20 Balance 200 20 Weight 90.718 kg 96.5 kg Intake: IV 20 Sodium Chloride 0.9% 1, 20 000 ml @ 20 mls/hr IV . Q24H [facility] Rx#:[id number] Oral 200 Other: Voiding Method Toilet Toilet - Exam Head normocephalic Neck supple Lungs clear to auscultation bilaterally no wheezing or crackles Heart regular rate and rhythm S1-S2, no rub or gallop Abdomen is soft nontender nondistended positive bowel sounds no hepatosplenomegaly. Right lower quadrant ostomy place Extremities no edema Neuro alert and orientated to 3 - Labs CBC & Chem 7: 06/13/19 08:32 06/13/19 08:32 Labs: Abnormal Lab Results - Last 24 Hours (Table) 06/12/19 06/12/19 06/12/19 Range/Units 14:25 17:51 18:06 RBC (3.80-5.40) m/uL Hgb (11.4-16.0) gm/dL Hct (34.0-46.0) % MCV (80.0-100.0) fL MCH (25.0-35.0) pg Plt Count (150-450) k/uL Potassium (3.5-5.1) mmol/L Creatinine (0.52-1.04) mg/dL Glucose (74-99) mg/dL POC Glucose (mg/dL) 138 H (75-99) mg/dL Plasma Lactic Acid Carlos 3.1 H* (0.7-2.0) mmol/L Calcium (8.4-10.2) mg/dL Total Bilirubin (0.2-1.3) mg/dL AST (14-36) U/L Alkaline Phosphatase (38-126) U/L Ammonia (<30) umol/L Troponin I 0.118 H* (0.000-0.034) ng/mL Total Protein (6.3-8.2) g/dL Albumin (3.5-5.0) g/dL 06/12/19 06/12/19 06/12/19 Range/Units 20:38 20:38 20:38 RBC 3.44 L (3.80-5.40) m/uL Hgb (11.4-16.0) gm/dL Hct (34.0-46.0) % MCV 106.9 H (80.0-100.0) fL MCH (25.0-35.0) pg Plt Count 80 L (150-450) k/uL Potassium 2.9 L (3.5-5.1) mmol/L Creatinine 1.22 H (0.52-1.04) mg/dL Glucose 205 H (74-99) mg/dL POC Glucose (mg/dL) (75-99) mg/dL Plasma Lactic Acid Carlos (0.7-2.0) mmol/L Calcium 7.7 L (8.4-10.2) mg/dL Total Bilirubin 2.6 H (0.2-1.3) mg/dL AST 56 H (14-36) U/L Alkaline Phosphatase 182 H (38-126) U/L Ammonia (<30) umol/L Troponin I 0.120 H* (0.000-0.034) ng/mL Total Protein 5.6 L (6.3-8.2) g/dL Albumin 2.6 L (3.5-5.0) g/dL 06/12/19 06/12/19 06/13/19 Range/Units 22:10 22:39 01:55 RBC (3.80-5.40) m/uL Hgb (11.4-16.0) gm/dL Hct (34.0-46.0) % MCV (80.0-100.0) fL MCH (25.0-35.0) pg Plt Count (150-450) k/uL Potassium (3.5-5.1) mmol/L Creatinine (0.52-1.04) mg/dL Glucose (74-99) mg/dL POC Glucose (mg/dL) 181 H (75-99) mg/dL Plasma Lactic Acid Carlos 2.9 H* (0.7-2.0) mmol/L Calcium (8.4-10.2) mg/dL Total Bilirubin (0.2-1.3) mg/dL AST (14-36) U/L Alkaline Phosphatase (38-126) U/L Ammonia (<30) umol/L Troponin I 0.124 H* (0.000-0.034) ng/mL Total Protein (6.3-8.2) g/dL Albumin (3.5-5.0) g/dL 06/13/19 06/13/19 06/13/19 Range/Units 01:55 06:38 08:32 RBC (3.80-5.40) m/uL Hgb (11.4-16.0) gm/dL Hct (34.0-46.0) % MCV (80.0-100.0) fL MCH (25.0-35.0) pg Plt Count (150-450) k/uL Potassium (3.5-5.1) mmol/L Creatinine (0.52-1.04) mg/dL Glucose (74-99) mg/dL POC Glucose (mg/dL) 176 H (75-99) mg/dL Plasma Lactic Acid Carlos 3.1 H* (0.7-2.0) mmol/L Calcium (8.4-10.2) mg/dL Total Bilirubin (0.2-1.3) mg/dL AST (14-36) U/L Alkaline Phosphatase (38-126) U/L Ammonia (<30) umol/L Troponin I 0.111 H* (0.000-0.034) ng/mL Total Protein (6.3-8.2) g/dL Albumin (3.5-5.0) g/dL 06/13/19 06/13/19 06/13/19 Range/Units 08:32 08:32 08:32 RBC 3.14 L (3.80-5.40) m/uL Hgb 11.2 L (11.4-16.0) gm/dL Hct 33.2 L (34.0-46.0) % MCV 105.8 H (80.0-100.0) fL MCH 35.5 H (25.0-35.0) pg Plt Count 78 L (150-450) k/uL Potassium 2.5 L* (3.5-5.1) mmol/L Creatinine 1.11 H (0.52-1.04) mg/dL Glucose 131 H (74-99) mg/dL POC Glucose (mg/dL) (75-99) mg/dL Plasma Lactic Acid Carlos (0.7-2.0) mmol/L Calcium 7.8 L (8.4-10.2) mg/dL Total Bilirubin 2.3 H (0.2-1.3) mg/dL AST 54 H (14-36) U/L Alkaline Phosphatase 179 H (38-126) U/L Ammonia 66 H (<30) umol/L Troponin I (0.000-0.034) ng/mL Total Protein 5.4 L (6.3-8.2) g/dL Albumin 2.4 L (3.5-5.0) g/dL 06/13/19 Range/Units 10:09 RBC (3.80-5.40) m/uL Hgb (11.4-16.0) gm/dL Hct (34.0-46.0) % MCV (80.0-100.0) fL MCH (25.0-35.0) pg Plt Count (150-450) k/uL Potassium (3.5-5.1) mmol/L Creatinine (0.52-1.04) mg/dL Glucose (74-99) mg/dL POC Glucose (mg/dL) 112 H (75-99) mg/dL Plasma Lactic Acid Carlos (0.7-2.0) mmol/L Calcium (8.4-10.2) mg/dL Total Bilirubin (0.2-1.3) mg/dL AST (14-36) U/L Alkaline Phosphatase (38-126) U/L Ammonia (<30) umol/L Troponin I (0.000-0.034) ng/mL Total Protein (6.3-8.2) g/dL Albumin (3.5-5.0) g/dL Microbiology - Last 24 Hours (Table) 06/12/19 Unknown Urine Culture - Preliminary Urine,Clean Catch Assessment and Plan Assessment: 1. Hypokalemia. Potassium level at [facility] 2.4. Ord 1.6ers to replace per protocol recheck ordered. Magnesium level 1.6. Potassium 2.5, replacement has been ordered per protocol. 2. Elevated ammonia level. Lactulose and Xifaxan resumed. Ammonia level daily 3. Elevated troponin. Troponin 0.118. Cardiology service is consulted. Serial troponins ordered. 2decho orderEd 4. Elevated lactic acid. Lactic acid 3.0. Repeat lactic acid ordered. CBC ordered. UA and chest x-ray ordered. repeat lactic acid 1.7. 5. Nausea and vomiting. Amylase and lipase WNl 6. History of nonalcoholic liver cirrhosis 7. History of hepatocellular carcinoma status post embolization 2012 2016 2017. 8. Chronic kidney disease stage III. 9. History of diverticulitis with ileostomy placement to [facility]. Patient was recently evaluated by our surgical services team no intervention at that time 10. Chronic thrombocytopenia due to known liver cancer secondary to chronic liver cirrhosis 11. Insulin-dependent diabetes mellitus. Home meds resumed 12. Iron deficiency anemia 13. Chronic elevated LFTs due to chronic liver malignancy 14. History of depression DVT prophylaxis SCDs due to chronic thrombocytopenia. GI prophylaxis Pepcid I performed an examination of the patient and discussed their management with the Nurse Practitioner. I have reviewed the Nurse Practitioner's notes and agree with the documented findings and plan of care
[2019-06-13 12:01] LABS: Glucose,Whole Blood 160 mg/dL (75-99)
[2019-06-13] MEDS: buPROPion SR 150 MG TABLET.ER PO SCH ×2 (12:01→22:44)
[2019-06-13] MEDS: RIFAXIMIN 550 MG TABLET PO SCH ×2 (12:01→22:44)
[2019-06-13 15:38] LABS: Magnesium 2.3 mg/dL (1.6-2.3); Potassium 3.2 mmol/L (3.5-5.1)
[2019-06-13 17:04] LABS: Glucose,Whole Blood 199 mg/dL (75-99)
[2019-06-13] MEDS: SODIUM CHLORIDE 0.9% 1,000 ML IV SCH (17:29)
[2019-06-13 20:33] LABS: Glucose,Whole Blood 88 mg/dL (75-99)
[2019-06-14 01:21] LABS: Magnesium 2.2 mg/dL (1.6-2.3); Potassium 3.9 mmol/L (3.5-5.1)
[2019-06-14 06:30] LABS: Glucose,Whole Blood 165 mg/dL (75-99)
--- NOTE | 2019-06-14 07:35 | XR ---
EXAMINATION TYPE: XR chest 2V DATE OF EXAM: 06/14/2019 COMPARISON: NONE HISTORY: Follow-up for pneumonia. TECHNIQUE: Frontal and lateral views of the chest are obtained. FINDINGS: There is improved aeration of the lungs in comparison to the prior. No focal consolidation , pleural effusion or pneumothorax. However interstitial lung markings are pronounced throughout. Mod erate multilevel degenerative changes of the spine. Postsurgical changes of the upper abdomen. Cardio mediastinal silhouette is enlarged. IMPRESSION: Improved aeration of the lung bases with no remaining focal consolidation. However inter stitial prominence throughout may relate to pneumonitis or fluid overload.
[2019-06-14] MEDS: INSULIN REGULAR 100 UNIT/ML VIAL SQ SCH ×3 (07:40→16:51)
[2019-06-14 07:48] LABS: Albumin 2.9 g/dL (3.5-5.0); Calcium 8.3 mg/dL (8.4-10.2); Total Bilirubin 2.8 mg/dL (0.2-1.3); Total Protein 6.4 g/dL (6.3-8.2)
[2019-06-14 07:52] LABS: Anisocytosis Slight; Basophils % (A) 1 %; Eosinophils # (A) 0.3 k/uL (0-0.7); Eosinophils % (A) 5 %; HGB 12.2 gm/dL (11.4-16.0); Lymphocytes # (A) 1.4 k/uL (1.0-4.8); Lymphocytes % (A) 22 %; MCH 34.8 pg (25.0-35.0); MCHC 31.3 g/dL (31.0-37.0); Macrocytosis Marked; Mean Platelet Volume 9.5; Monocytes # (A) 0.4 k/uL (0-1.0); Monocytes % (A) 6 %; Neutrophils # (A) 3.8 k/uL (1.3-7.7); Neutrophils % (A) 63 %; Platelet Count 98 k/uL (150-450); RDW 16.2 % (11.5-15.5)
[2019-06-14] MEDS: MAGNESIUM OXIDE 400 MG TAB PO SCH ×2 (07:55→20:42)
[2019-06-14] MEDS: RIFAXIMIN 550 MG TABLET PO SCH ×2 (07:55→21:08)
[2019-06-14] MEDS: SUCRALFATE 1 GM TAB PO SCH ×4 (07:56→21:08)
[2019-06-14] MEDS: DICYCLOMINE 10 MG CAP PO SCH ×3 (07:56→21:08)
[2019-06-14] MEDS: buPROPion SR 150 MG TABLET.ER PO SCH ×2 (07:56→20:42)
[2019-06-14] MEDS: CHOLECALCIFEROL 1,000 UNIT TAB PO SCH (07:56)
[2019-06-14] MEDS: POTASSIUM CHLORIDE ER 20 MEQ TAB.ER PO SCH (07:56)
[2019-06-14 07:57] LABS: MCV 111.5 fL (80.0-100.0)
[2019-06-14] MEDS: METOPROLOL TARTRATE 12.5 MG TAB PO SCH (07:57)
[2019-06-14] MEDS: MORPHINE SULFATE ER 15 MG TABLET PO SCH ×2 (07:57→20:42)
[2019-06-14] MEDS: FERROUS SULFATE 325 MG TAB PO SCH ×2 (07:57→20:42)
[2019-06-14] MEDS: INSULIN NPH 300 UNIT/3 ML VIAL SQ SCH ×2 (07:58→21:07)
[2019-06-14] MEDS: LACTULOSE 20 GM/30 ML CUP PO SCH ×3 (07:58→21:08)
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
[2019-06-14 11:59] LABS: Glucose,Whole Blood 132 mg/dL (75-99)
[2019-06-14] MEDS: SODIUM CHLORIDE 0.9% 1,000 ML IV SCH (15:16)
[2019-06-14 16:40] LABS: Glucose,Whole Blood 145 mg/dL (75-99)
[2019-06-14 21:06] LABS: Glucose,Whole Blood 87 mg/dL (75-99)
[2019-06-15 05:58] LABS: Basophils % (A) 1 %; Eosinophils # (A) 0.3 k/uL (0-0.7); Eosinophils % (A) 6 %; HCT 31.9 % (34.0-46.0); HGB 10.1 gm/dL (11.4-16.0); Lymphocytes # (A) 1.2 k/uL (1.0-4.8); Lymphocytes % (A) 26 %; MCH 34.3 pg (25.0-35.0); MCHC 31.8 g/dL (31.0-37.0); Mean Platelet Volume 10.4; Monocytes # (A) 0.4 k/uL (0-1.0); Monocytes % (A) 8 %; Neutrophils # (A) 2.6 k/uL (1.3-7.7); Neutrophils % (A) 56 %; RBC 2.95 m/uL (3.80-5.40); RDW 15.4 % (11.5-15.5); WBC 4.6 k/uL (3.8-10.6)
[2019-06-15 05:59] LABS: Platelet Count 67 k/uL (150-450)
[2019-06-15 06:00] LABS: Macrocytosis Marked
[2019-06-15 06:11] LABS: Albumin 2.2 g/dL (3.5-5.0); Potassium 4.3 mmol/L (3.5-5.1); Total Bilirubin 1.9 mg/dL (0.2-1.3); Total Protein 5.2 g/dL (6.3-8.2)
[2019-06-15 06:44] LABS: Glucose,Whole Blood 93 mg/dL (75-99)
[2019-06-15] MEDS: INSULIN REGULAR 100 UNIT/ML VIAL SQ SCH ×3 (06:45→17:37)
[2019-06-15] MEDS: PANTOPRAZOLE 40 MG TABLET PO SCH (06:46)
[2019-06-15] MEDS: DICYCLOMINE 10 MG CAP PO SCH ×3 (08:27→21:58)
[2019-06-15] MEDS: buPROPion SR 150 MG TABLET.ER PO SCH ×2 (08:28→21:59)
[2019-06-15] MEDS: POTASSIUM CHLORIDE ER 20 MEQ TAB.ER PO SCH (08:28)
[2019-06-15] MEDS: FERROUS SULFATE 325 MG TAB PO SCH ×2 (08:28→21:58)
[2019-06-15] MEDS: SUCRALFATE 1 GM TAB PO SCH ×4 (08:28→21:58)
[2019-06-15] MEDS: RIFAXIMIN 550 MG TABLET PO SCH ×2 (08:28→21:59)
[2019-06-15] MEDS: MAGNESIUM OXIDE 400 MG TAB PO SCH ×2 (08:28→21:58)
[2019-06-15] MEDS: METOPROLOL TARTRATE 12.5 MG TAB PO SCH (08:28)
[2019-06-15] MEDS: CHOLECALCIFEROL 1,000 UNIT TAB PO SCH (08:28)
[2019-06-15] MEDS: INSULIN NPH 300 UNIT/3 ML VIAL SQ SCH ×2 (08:29→22:00)
[2019-06-15] MEDS: LACTULOSE 20 GM/30 ML CUP PO SCH ×3 (08:30→22:00)
[2019-06-15] MEDS: MORPHINE SULFATE ER 15 MG TABLET PO SCH ×2 (08:31→21:58)
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
[2019-06-15 11:46] LABS: Glucose,Whole Blood 95 mg/dL (75-99)
[2019-06-15] MEDS: SODIUM CHLORIDE 0.9% 1,000 ML IV SCH (12:47)
[2019-06-15 17:44] LABS: Glucose,Whole Blood 220 mg/dL (75-99)
[2019-06-15 20:44] LABS: Glucose,Whole Blood 101 mg/dL (75-99)
--- NOTE | 2019-06-15 23:51 | CONS ---
CONSULTATION DATE OF SURGERY: 06/15/2019 REASON FOR CONSULTATION: Positive culture with VRE. HISTORY OF PRESENT ILLNESS: The patient is a 73-year-old female who apparently has been transferred from [facility] for evaluation of weakness and confusion. Apparently the patient did have elevated troponin and GA, high ammonia level. The patient was sent to the facility for evaluation of weakness. The patient complaining of some abdominal pain. The patient denies having any fever, rigor or chills. No headache. No chest pain, shortness of breath or cough. The patient complaining of some pain mostly in the epigastric area, more of a dull aching pain 3-4/10, and no radiation. Some nausea but no vomiting and no diarrhea. The patient on admission to the hospital noticed to be afebrile. She has been afebrile throughout her hospital stay. The patient did have a normal white count of 5.0. The patient's urine was negative. However, the urine culture now finalized with VRE more than 100,000 colonies that prompted this infectious disease consultation. The patient denies having any burning or frequency of urination. No complaints of pressure though but no suprapubic or flank pain. REVIEW OF SYSTEMS: Positive points have been mentioned in HPI. Rest of the systems are negative. PAST MEDICAL HISTORY: Diabetes mellitus, hypertension and GA, hepatocellular carcinoma with chemo, non- alcoholic liver cirrhosis, previous history of recurrent urinary tract infection. PAST SURGICAL HISTORY: Appendectomy, bowel resection, , cholecystectomy, hysterectomy, tonsillectomy. SOCIAL HISTORY: Denies smoking, drinking, drug use. FAMILY HISTORY: Mother with history of congestive heart failure. ALLERGIES: TO MULTIPLE MEDICATIONS INCLUDE PENICILLIN. MEDICATION: Currently include the patient is on Tylenol, Wellbutrin SR, Klonopin, she is on daptomycin, Bentyl, iron sulfate, Humulin-N, lactulose, Mag oxide, Lopressor, MS Contin, Narcan, Zofran, Protonix, cephalexin and Carafate. PHYSICAL EXAMINATION: Blood pressure 115/68 with a pulse of 54, temperature 98.7, she is 100 percent on room air. General description: The patient is an elderly female up in the bed in no distress. No tachypnea or accessory muscles of respiration use. HEENT: Shows slight pallor. No scleral icterus. Oral mucosal membranes are dry. No pharyngeal erythema. No thrush. NECK: Trachea central. No thyromegaly. LUNGS unlabored breathing with decreased breath sounds at the bases. No wheeze or crackles. CARDIOVASCULAR: Heart S1, S2. Regular rate and rhythm. ABDOMEN: Soft, no distention. No guarding or rigidity. No organomegaly. EXTREMITIES: No edema of the feet. SKIN examination: No rash or mass palpable. NEUROLOGICAL: Patient is awake, alert, oriented times three. Mood and affect normal. LABS: UA is negative. Hemoglobin is 10.1, white count 4.6, BUN of 10, creatinine 1.01. There is a mildly elevated urine culture with VRE. DIAGNOSTIC IMPRESSION AND PLAN: Patient with a positive urine culture with VRE shows possibly contamination or colonization as the patient is afebrile. No significant urinary symptoms and the patient UA was negative. PLAN: 1. Discontinue the daptomycin. 2. Patient will be monitored closely off antibiotic therapy. If any change in her clinical condition or develops any new symptoms, appropriate cultures obtained before starting her antibiotics. MMODL / IJN: [id number] /
[2019-06-16 06:28] LABS: Basophils % (A) 1 %; Eosinophils # (A) 0.3 k/uL (0-0.7); Eosinophils % (A) 5 %; HCT 31.6 % (34.0-46.0); HGB 9.9 gm/dL (11.4-16.0); Hypochromasia Slight; Lymphocytes # (A) 1.1 k/uL (1.0-4.8); Lymphocytes % (A) 22 %; MCH 34.6 pg (25.0-35.0); MCHC 31.4 g/dL (31.0-37.0); MCV 110.4 fL (80.0-100.0); Macrocytosis Marked; Mean Platelet Volume 9.5; Monocytes # (A) 0.3 k/uL (0-1.0); Monocytes % (A) 7 %; Neutrophils % (A) 62 %; RBC 2.86 m/uL (3.80-5.40); RDW 15.2 % (11.5-15.5); WBC 4.8 k/uL (3.8-10.6)
[2019-06-16 06:35] LABS: Platelet Count 62 k/uL (150-450)
[2019-06-16 06:38] LABS: Albumin 2.3 g/dL (3.5-5.0); Calcium 8.3 mg/dL (8.4-10.2); Potassium 5.6 mmol/L (3.5-5.1); Total Bilirubin 2.2 mg/dL (0.2-1.3); Total Protein 5.3 g/dL (6.3-8.2)
[2019-06-16 06:47] LABS: Glucose,Whole Blood 126 mg/dL (75-99)
[2019-06-16] MEDS: PANTOPRAZOLE 40 MG TABLET PO SCH (06:49)
[2019-06-16] MEDS: INSULIN REGULAR 100 UNIT/ML VIAL SQ SCH ×2 (06:49→12:23)
[2019-06-16] MEDS ORDERED: SODIUM POLYSTYRENE SULFONATE 15 GM/60 ML BOTTLE PO ONE (08:08)
[2019-06-16] MEDS: POTASSIUM CHLORIDE ER 20 MEQ TAB.ER PO SCH (08:14)
[2019-06-16] MEDS: INSULIN NPH 300 UNIT/3 ML VIAL SQ SCH (08:16)
[2019-06-16] MEDS: CHOLECALCIFEROL 1,000 UNIT TAB PO SCH (08:17)
[2019-06-16] MEDS: DICYCLOMINE 10 MG CAP PO SCH (08:17)
[2019-06-16] MEDS: MAGNESIUM OXIDE 400 MG TAB PO SCH (08:17)
[2019-06-16] MEDS: FERROUS SULFATE 325 MG TAB PO SCH (08:17)
[2019-06-16] MEDS: RIFAXIMIN 550 MG TABLET PO SCH (08:18)
[2019-06-16] MEDS: METOPROLOL TARTRATE 12.5 MG TAB PO SCH (08:18)
[2019-06-16] MEDS: buPROPion SR 150 MG TABLET.ER PO SCH (08:18)
[2019-06-16] MEDS: MORPHINE SULFATE ER 15 MG TABLET PO SCH (08:18)
[2019-06-16] MEDS: LACTULOSE 20 GM/30 ML CUP PO SCH (08:20)
[2019-06-16] MEDS ORDERED: MORPHINE SULFATE 2 MG/ML SYRINGE IVP STA (10:23)
[2019-06-16] MEDS: SUCRALFATE 1 GM TAB PO SCH ×2 (10:44→13:46)
[2019-06-16 12:07] LABS: Glucose,Whole Blood 87 mg/dL (75-99)
[2019-06-16 13:14] VITALS: BP 105/68; PULSE 64; RESP 17; TEMP 98.7
--- NOTE | 2019-06-16 14:36 | P.DS ---
Providers Date of admission: 06/12/19 14:14 Expected date of discharge: 06/16/19 Attending physician: Artemio Lea Consults: 06/12/19 15:23 Consult Physician Routine Consulting Provider: Yuri Keith Consult Reason/Comments: elevated trop and chest pain Do you want consulting provider notified?: Yes 06/15/19 08:29 Consult Physician Routine Consulting Provider: Jaylene Esparza Consult Reason/Comments: VRE urine Do you want consulting provider notified?: Yes Primary care physician: [facility] Course: Patient is a 73-year-old female with a PMH of hepatocellular carcinoma status post embolization 3, status post ileostomy, nonalcoholic liver cirrhosis, chronic abdominal pain, chronically elevated LFTs, hypertension, see daily, anxiety, and diabetes mellitus who presented to the ED with complaints of nausea, vomiting, and feeling weak. The patient had originally presented at [facility] where she was noted to have potassium of 2.4 along with a troponin of 0.1 and was subsequently transferred to our emergency room. The patient underwent an extensive evaluation and was found to have a potassium of 2.9, troponin 0.120, and a lactic acid of 3.1. Patient was subsequently admitted for further management. Cardiology evaluated the patient and noted that the patient's troponin is consistently within the abnormal range likely secondary to her abnormal renal function. The patient was also initially placed on daptomycin for VRE grown from the urine culture. Infectious disease was consulted and recommended discontinuing the daptomycin as the patient had denied any urinary complaints and the urine analysis wasn't consistent with UTI, pointing towards likely VRE colonization. The patient was seen and examined at the bedside on the day of discharge. She reported ongoing chronic pain at the site of the ileostomy. She otherwise denied fever, chills, chest pain, shortness of breath. She denied dysuria, urinary hesitancy, urinary urgency. Physical Examination General: Non-toxic, in no acute distress, appears stated age, normal weight HEENT: NC/AT, anicteric sclerae, moist conjunctiva, no lid-lag, PERRLA Cardiovascular: S1/S2 wnl, no murmurs, rubs, or gallops Lungs: Clear to auscultation, normal respiratory effort, no accessory muscle use Abdominal: Soft, non-tender, non-distended, right sided ostomy in place, no guarding, rebound, or rigidity Skin: Warm, dry Extremities: No edema or contractures Psychiatric: Alert and oriented to person, place and time, appropriate affect Neuro: CN II-XII grossly intact, no focal deficits Discharge diagnosis:Hypokalemia, resolved; elevated troponin; history of hepatocellular adenoma status post embolization; CKD stage III; diverticulitis status post ileostomy placement; thrombocytopenia; macrocytic anemia; chronically abnormal LFTs; elevated lactic acid, resolved; diabetes mellitus A total of 45 minutes of time were spent preparing this complex discharge summary. Patient Condition at Discharge: Fair Plan - Discharge Summary New Discharge Prescriptions: New Rifaximin [Xifaxan] 550 mg PO BID #28 tablet Continue Sucralfate [Carafate] 1 gm PO QID Omeprazole [PriLOSEC] 20 mg PO BID Insulin Regular, Human [NovoLIN R] 10 unit SQ AC-TID Cholecalciferol [Vitamin D3 (25 Mcg = 1000 Iu)] 4,000 unit PO DAILY Ferrous Sulfate [Iron (65 MG Elemental)] 325 mg PO BID Insulin NPH [humuLIN N] 18 unit SQ BID vial Magnesium Oxide [William] 500 mg PO BID #6 tablet Morphine Sulfate [Ms Contin] 15 mg PO BID Ondansetron Odt [Zofran ODT] 8 mg SL DAILY PRN PRN Reason: Nausea Lactulose 67.5 gm PO TID Metoprolol Tartrate [Lopressor] 6.25 mg PO DAILY Dicyclomine [Bentyl] 10 mg PO TID buPROPion HCL [Wellbutrin SR] 150 mg PO BID clonazePAM [KlonoPIN] 0.5 mg PO Q8HR PRN PRN Reason: Anxiety Discharge Medication List Omeprazole [PriLOSEC] 20 mg PO BID 10/23/18 [History] Sucralfate [Carafate] 1 gm PO QID 10/23/18 [History] Insulin Regular, Human [NovoLIN R] 10 unit SQ AC-TID 10/24/18 [History] Cholecalciferol [Vitamin D3 (25 Mcg = 1000 Iu)] 4,000 unit PO DAILY 01/16/19 [History] Ferrous Sulfate [Iron (65 MG Elemental)] 325 mg PO BID 01/31/19 [History] Insulin NPH [humuLIN N] 18 unit SQ BID vial 02/06/19 [Rx] Magnesium Oxide [William] 500 mg PO BID #6 tablet 05/05/19 [Rx] Morphine Sulfate [Ms Contin] 15 mg PO BID 05/15/19 [History] Dicyclomine [Bentyl] 10 mg PO TID 06/12/19 [History] Lactulose 67.5 gm PO TID 06/12/19 [History] Metoprolol Tartrate [Lopressor] 6.25 mg PO DAILY 06/12/19 [History] Ondansetron Odt [Zofran ODT] 8 mg SL DAILY PRN 06/12/19 [History] buPROPion HCL [Wellbutrin SR] 150 mg PO BID 06/12/19 [History] clonazePAM [KlonoPIN] 0.5 mg PO Q8HR PRN 06/12/19 [History] Rifaximin [Xifaxan] 550 mg PO BID #28 tablet 06/16/19 [Rx] Follow up Appointment(s)/Referral(s): Wilver Lux MD [STAFF PHYSICIAN] - 06/26/19 3:45 pm [facility], [NON-STAFF] - Artemio Lea MD [Primary Care Provider] - 06/30/19 10:30 am (First available appointment stated by secretary to board of commissioners.) Patient Instructions/Handouts: Hypokalemia (DC) Activity/Diet/Wound Care/Special Instructions: Patient advised to follow-up with her PCP for further monitoring of her K+ Discharge Disposition: HOME SELF-CARE
--- NOTE | 2019-06-16 16:25 | PN ---
PROGRESS NOTE DATE OF SERVICE: 06/16/2019 REASON FOR FOLLOWUP: Positive urine culture with VRE. INTERVAL HISTORY: The patient is currently afebrile. The patient has been breathing comfortably. The patient is complaining of pain around her ostomy site. No nausea, no vomiting. No burning or frequency of urine. PHYSICAL EXAMINATION: Blood pressure 105/60 with a pulse of 64, temperature 98.7. She is 99% on room air. General description is an elderly female up in the bed in no distress. RESPIRATORY SYSTEM: Unlabored breathing. Clear to auscultation anteriorly. HEART: S1, S2. Regular rate and rhythm. ABDOMEN: Soft. No tenderness. LABS: Hemoglobin 9.1, white count 4.8 with a BUN of 12, creatinine 1.23. DIAGNOSTIC IMPRESSION AND PLAN: Patient with a positive culture with vancomycin-resistant Enterococcus, more likely contamination, as the patient's corresponding urinalysis has been negative. Patient has no urinary symptoms. No need for antibiotics on discharge. Continue supportive care. MMODL / IJN: [id number] /
--- NOTE | 2019-06-20 10:06 | CDI ---
Documentation Clarification Form Date: 06/20/19 From: GALDINO Dillard Phone: If you have question, contact Patty Rosenberg at [phone] M-F 8:30 am to 6pm Admit Date: 06/12/2019 2:14:00 PM Patient Name: Charlene Keenan Visit Number: [id number] Discharge Date: 06/16/2019 3:48:00 PM ATTENTION: The Clinical Documentation Specialists (CDI) and [facility] Coding Staff appreciate your assistance in clarifying documentation. Please respond to the clarification below the line at the bottom and electronically sign. The CDI & [facility] Coding staff will review the response and follow-up if needed. Please note: Queries are made part of the Legal Health Record. If you have any questions, please contact the author of this message via ITS. Dr. Yuri Keith Patient presented to [facility] from [facility] with low potassium, elevated ammonia and elevated troponins. Cardiology consult: Non- VT elevated troponin secondary to chronic kidney disease Troponin: 06/12 1425:0.118, 06/12 2038: 0.120, 06/13 0155 0.124, 06/13 0832 0.111 EKG Results: Normal sinus rhythm Discharge summary indicates, Cardiology evaluated the patient and noted that the patients troponin is consistently within the abnormal range likely secondary to her abnormal renal function. In order to capture the severity of condition and necessary documentation specificity, please clarify: Type of Infarction: No infarction; elevated troponin only, due to CKD xxxxxx Type 2 VT (due to demand ischemia or secondary to an ischemic imbalance) NSTEMI Unable to determine Other Condition, please specify MTDD
== END 2019-06-16 15:48 | disposition home or self-care (01) | DRG 641 ==
LOC: EC 13:49 → 3SCARD 14:14
PROVIDERS: ADMIT Internal Medicine; ATTEND Internal Medicine
DX: E87.6 Hypokalemia (principal); E72.20 Disorder of urea cycle metabolism, unspecified; E87.2 Acidosis; F41.9 Anxiety disorder, unspecified; F32.9 Major depressive disorder, single episode, unspecified; E11.22 Type 2 diabetes mellitus with diabetic chronic kidney disease; D69.59 Other secondary thrombocytopenia; T21.01XA Burn of unspecified degree of chest wall, initial encounter; I12.9 Hypertensive chronic kidney disease with stage 1 through stage 4 chronic kidney disease, or unspecified chronic kidney disease; N18.3 Chronic kidney disease, stage 3 (moderate); D50.9 Iron deficiency anemia, unspecified; E78.5 Hyperlipidemia, unspecified; R74.8 Abnormal levels of other serum enzymes; K74.60 Unspecified cirrhosis of liver; G89.29 Other chronic pain; I45.10 Unspecified right bundle-branch block; Z16.21 Resistance to vancomycin; T85.848A Pain due to other internal prosthetic devices, implants and grafts, initial encounter; Y73.2 Prosthetic and other implants, materials and accessory gastroenterology and urology devices associated with adverse incidents; I25.2 Old myocardial infarction; Z92.21 Personal history of antineoplastic chemotherapy; Z82.49 Family history of ischemic heart disease and other diseases of the circulatory system; Z86.14 Personal history of Methicillin resistant Staphylococcus aureus infection; Z90.49 Acquired absence of other specified parts of digestive tract; Z90.710 Acquired absence of both cervix and uterus; Z87.440 Personal history of urinary (tract) infections; Z93.2 Ileostomy status; Z88.5 Allergy status to narcotic agent; Z88.0 Allergy status to penicillin; Z88.8 Allergy status to other drugs, medicaments and biological substances; Z79.4 Long term (current) use of insulin; Z79.899 Other long term (current) drug therapy; Z85.05 Personal history of malignant neoplasm of liver; Z86.79 Personal history of other diseases of the circulatory system; Z87.11 Personal history of peptic ulcer disease; Z87.891 Personal history of nicotine dependence
CPT/HCPCS: 36415; 71046; 80053; 81003; 82140; 82150; 83605; 83690; 83735; 84132; 84484; 85025; 87077; 87086; 87186; 93308; 96365; 96366; 96375; 99285

== ENCOUNTER 2019-06-21 10:29 | Inpatient (IN) | payer MEDICARE ==
--- NOTE | 2019-06-21 11:03 | ED ---
General Adult HPI - General Chief complaint: Arrhythmia/Palpitations Stated complaint: palpitations Time Seen by Provider: 06/21/19 10:30 Source: patient, EMS, RN notes reviewed Mode of arrival: EMS Limitations: no limitations - History of Present Illness Initial comments: This is a 73-year-old female who presents emergency Department because she's been feeling palpitations since 2:00 this morning. Patient states she called her medical doctor and he recommended her to go to the hospital. Patient states she was just recently in the hospital for palpitations and low potassium as well as high ammonia level. Patient states she has been diagnosed with hepatic encephalopathy. Patient states she doesn't feel confused today. Patient denies any chest pain patient denies any shortness of breath or difficulty breathing. Patient does states she feels generally weak but no focal weakness. Patient denies abdominal pain patient denies any nausea vomiting diarrhea. Patient denies any black or bloody stools. Patient denies lightheadedness or dizziness. Patient denies any patient denies numbness weakness. Patient denies any dysuria hematuria urinary frequency. - Related Data Home Medications Medication Instructions Recorded Confirmed Omeprazole [PriLOSEC] 20 mg PO BID 10/23/18 06/21/19 Sucralfate [Carafate] 1 gm PO QID 10/23/18 06/21/19 Insulin Regular, Human [NovoLIN R] 10 unit SQ AC-TID 10/24/18 06/21/19 Cholecalciferol [Vitamin D3 (25 4,000 unit PO DAILY 01/16/19 06/21/19 Mcg = 1000 Iu)] Ferrous Sulfate [Iron (65 MG 325 mg PO BID 01/31/19 06/21/19 Elemental)] Morphine Sulfate [Ms Contin] 15 mg PO BID 05/15/19 06/21/19 Dicyclomine [Bentyl] 10 mg PO TID 06/12/19 06/21/19 Lactulose 67.5 gm PO TID 06/12/19 06/21/19 Metoprolol Tartrate [Lopressor] 6.25 mg PO DAILY 06/12/19 06/21/19 Ondansetron Odt [Zofran ODT] 8 mg SL DAILY PRN 06/12/19 06/21/19 buPROPion HCL [Wellbutrin SR] 150 mg PO BID 06/12/19 06/21/19 clonazePAM [KlonoPIN] 0.5 mg PO Q8HR PRN 06/12/19 06/21/19 Previous Rx's Medication Instructions Recorded Insulin NPH [humuLIN N] 18 unit SQ BID vial 02/06/19 Magnesium Oxide [William] 500 mg PO BID #6 tablet 05/05/19 Allergies Allergy/AdvReac Type Severity Reaction Status Date / Time amlodipine Allergy Rash/Hives Verified 06/21/19 11:58 oxycodone Allergy Rash/Hives Verified 06/21/19 11:58 Penicillins Allergy Rash/Hives Verified 06/21/19 11:58 hydromorphone [From Dilaudid] AdvReac Mild tactile Verified 06/21/19 11:58 disturbance GREG Inhibitors AdvReac Cough Verified 06/21/19 11:58 sodium dodecyclbenzene Allergy Rash/Hives Uncoded 05/24/19 12:29 sulfonate Review of Systems ROS Statement: Those systems with pertinent positive or pertinent negative responses have been documented in the HPI. ROS Other: All systems not noted in ROS Statement are negative. Past Medical History Past Medical History: Cancer, Diabetes Mellitus, Hypertension, Liver Disease, Myocardial Infarction ([place]), Renal Disease Additional Past Medical History / Comment(s): Hepatocellular liver cancer with chemo immobilization-last time being 2017, ascities with paracentesis's , nonalcoholic liver cirrhosis, chronic pancytopenia, chronic elevated ammonia levels, hepatic encephalopathy, chronic elevated LFTs, chronic abdominal pain, stomach ulcer, diverticular disease with ileostomy, IDDM type II, iron anemia, CKD stage III, nonsustained vtach, UTI, high ammonia levels Last Myocardial Infarction Date:: unk History of Any Multi-Drug Resistant Organisms: MRSA, VRE Date of last positivie culture/infection: 06/12/19- VRE; 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 Past Anesthesia/Blood Transfusion Reactions: No Reported Reaction Past Psychological History: Anxiety, Depression Smoking Status: Former smoker Past Alcohol Use History: None Reported Past Drug Use History: None Reported - Past Family History Mother History Unknown: Yes Family Medical History: Congestive Heart Failure (CHF) Additional Family Medical History / Comment(s): Mother is 94 yrs old. Father Family Medical History: Chest Pain / Angina Additional Family Medical History / Comment(s): Father is . General Exam - General Exam Comments Initial Comments: GENERAL: Patient is well-developed and well-nourished. Patient is nontoxic and well- hydrated and is in mild distress. ENT: Neck is soft and supple. No significant lymphadenopathy is noted. Oropharynx is clear. Moist mucous membranes. Neck has full range of motion without eliciting any pain. EYES: The sclera were anicteric and conjunctiva were pink and moist. Extraocular movements were intact and pupils were equal round and reactive to light. Eyelids were unremarkable. PULMONARY: Unlabored respirations. Good breath sounds bilaterally. No audible rales r honchi or wheezing was noted. CARDIOVASCULAR: There is a regular rate and rhythm without any murmurs gallops or rubs. ABDOMEN: Soft and nontender with normal bowel sounds. No palpable organomegaly was noted. There is no palpable pulsatile mass. SKIN: Skin is clear with no lesions or rashes and otherwise unremarkable. NEUROLOGIC: Patient is alert and oriented x3. Cranial nerves II through XII are grossly intact. Motor and sensory are also intact. Normal speech, volume and content. Symmetrical smile. MUSCULOSKELETAL: Normal extremities with adequate strength and full range of motion. No lower extremity swelling or edema. No calf tenderness. LYMPHATICS: No significant lymphadenopathy is noted PSYCHIATRIC: Normal psychiatric evaluation. Limitations: no limitations Course Vital Signs 06/21/19 06/21/19 06/21/19 10:33 11:00 12:00 Temperature 99.7 F H Pulse Rate 75 67 67 Respiratory 18 19 18 Rate Blood Pressure 111/60 111/60 116/58 O2 Sat by Pulse 98 97 96 Oximetry 06/21/19 13:14 Temperature Pulse Rate 85 Respiratory 18 Rate Blood Pressure 136/72 O2 Sat by Pulse 100 Oximetry Medical Decision Making - Medical Decision Making EKG shows normal sinus rhythm at 70 bpm MN interval is on a 54 QRS is under 42 QT intervals 488 QTC is 527. Patient has a right bundle branch block. Patient has some T-wave inversions in V1 and V2 which was seen in previous EKG in comparison the old EKG no new EKG changes are noted. Chest x-ray showed no acute abnormality. I spoke with several physicians agreed to admit admitted the patient wrote admitting orders - Lab Data Result diagrams: 06/21/19 10:40 06/21/19 10:40 Lab Results 06/21/19 06/21/19 06/21/19 Range/Units 10:40 10:40 10:40 WBC 5.1 (3.8-10.6) k/uL RBC 3.62 L (3.80-5.40) m/uL Hgb 12.8 (11.4-16.0) gm/dL Hct 38.7 (34.0-46.0) % MCV 107.0 H (80.0-100.0) fL MCH 35.4 H (25.0-35.0) pg MCHC 33.1 (31.0-37.0) g/dL RDW 14.8 (11.5-15.5) % Plt Count 77 L (150-450) k/uL Neutrophils % 73 % Lymphocytes % 16 % Monocytes % 8 % Eosinophils % 2 % Basophils % 0 % Neutrophils # 3.7 (1.3-7.7) k/uL Lymphocytes # 0.8 L (1.0-4.8) k/uL Monocytes # 0.4 (0-1.0) k/uL Eosinophils # 0.1 (0-0.7) k/uL Basophils # 0.0 (0-0.2) k/uL Macrocytosis Moderate PT (9.0-12.0) sec INR (<1.2) APTT (22.0-30.0) sec Sodium 138 (137-145) mmol/L Potassium 2.5 L* (3.5-5.1) mmol/L Chloride 98 (98-107) mmol/L Carbon Dioxide 31 H (22-30) mmol/L Anion Gap 9 mmol/L BUN 18 H (7-17) mg/dL Creatinine 1.29 H (0.52-1.04) mg/dL Est GFR (CKD-EPI)AfAm 48 (>60 ml/min/1.73 sqM) Est GFR (CKD-EPI)NonAf 42 (>60 ml/min/1.73 sqM) Glucose 246 H (74-99) mg/dL Calcium 8.0 L (8.4-10.2) mg/dL Magnesium 1.7 (1.6-2.3) mg/dL Total Bilirubin 3.9 H (0.2-1.3) mg/dL AST 62 H (14-36) U/L ALT 32 (9-52) U/L Alkaline Phosphatase 232 H (38-126) U/L Ammonia 32 H (<30) umol/L Troponin I (0.000-0.034) ng/mL Total Protein 6.5 (6.3-8.2) g/dL Albumin 2.9 L (3.5-5.0) g/dL 06/21/19 06/21/19 Range/Units 10:40 10:40 WBC (3.8-10.6) k/uL RBC (3.80-5.40) m/uL Hgb (11.4-16.0) gm/dL Hct (34.0-46.0) % MCV (80.0-100.0) fL MCH (25.0-35.0) pg MCHC (31.0-37.0) g/dL RDW (11.5-15.5) % Plt Count (150-450) k/uL Neutrophils % % Lymphocytes % % Monocytes % % Eosinophils % % Basophils % % Neutrophils # (1.3-7.7) k/uL Lymphocytes # (1.0-4.8) k/uL Monocytes # (0-1.0) k/uL Eosinophils # (0-0.7) k/uL Basophils # (0-0.2) k/uL Macrocytosis PT 14.9 H (9.0-12.0) sec INR 1.5 H (<1.2) APTT 27.4 (22.0-30.0) sec Sodium (137-145) mmol/L Potassium (3.5-5.1) mmol/L Chloride (98-107) mmol/L Carbon Dioxide (22-30) mmol/L Anion Gap mmol/L BUN (7-17) mg/dL Creatinine (0.52-1.04) mg/dL Est GFR (CKD-EPI)AfAm (>60 ml/min/1.73 sqM) Est GFR (CKD-EPI)NonAf (>60 ml/min/1.73 sqM) Glucose (74-99) mg/dL Calcium (8.4-10.2) mg/dL Magnesium (1.6-2.3) mg/dL Total Bilirubin (0.2-1.3) mg/dL AST (14-36) U/L ALT (9-52) U/L Alkaline Phosphatase (38-126) U/L Ammonia (<30) umol/L Troponin I 0.108 H* (0.000-0.034) ng/mL Total Protein (6.3-8.2) g/dL Albumin (3.5-5.0) g/dL Disposition Clinical Impression: Palpitations, Hypokalemia, Elevated troponin Disposition: ADMITTED IP TO THIS HOSP Referrals: Artemio Lea MD [Primary Care Provider] - 1-2 days Time of Disposition: 14:36
[2019-06-21 11:10] LABS: Basophils % (A) 0 %; Eosinophils # (A) 0.1 k/uL (0-0.7); Eosinophils % (A) 2 %; HCT 38.7 % (34.0-46.0); HGB 12.8 gm/dL (11.4-16.0); Lymphocytes # (A) 0.8 k/uL (1.0-4.8); Lymphocytes % (A) 16 %; MCH 35.4 pg (25.0-35.0); MCHC 33.1 g/dL (31.0-37.0); Macrocytosis Moderate; Mean Platelet Volume 8.9; Monocytes # (A) 0.4 k/uL (0-1.0); Monocytes % (A) 8 %; Neutrophils # (A) 3.7 k/uL (1.3-7.7); Neutrophils % (A) 73 %; RBC 3.62 m/uL (3.80-5.40); RDW 14.8 % (11.5-15.5); WBC 5.1 k/uL (3.8-10.6)
[2019-06-21 11:13] LABS: Platelet Count 77 k/uL (150-450)
--- NOTE | 2019-06-21 11:32 | XR ---
EXAMINATION TYPE: XR chest 2V DATE OF EXAM: 06/21/2019 COMPARISON: 06/14/2019 HISTORY: Dysrhythmia and palpitations TECHNIQUE: Frontal and lateral views of the chest are obtained. FINDINGS: There is no focal air space opacity, pleural effusion, or pneumothorax seen. No pulmonary edema or pulmonary vascular congestion. The cardiac silhouette size is upper limits of normal. The osseous structures are intact. Moderate degenerative changes of the thoracic spine. IMPRESSION: No acute cardiopulmonary process.
[2019-06-21 11:33] LABS: Albumin 2.9 g/dL (3.5-5.0); INR 1.5 (<1.2); Magnesium 1.7 mg/dL (1.6-2.3); Partial Thromboplastin Time 27.4 sec (22.0-30.0); Prothrombin Time 14.9 sec (9.0-12.0); Total Bilirubin 3.9 mg/dL (0.2-1.3); Total Protein 6.5 g/dL (6.3-8.2)
[2019-06-21 11:37] LABS: Potassium 2.5 mmol/L (3.5-5.1)
[2019-06-21] MEDS ORDERED: POTASSIUM CHLORIDE ER 20 MEQ TAB.ER PO STA (12:16)
[2019-06-21] MEDS ORDERED: POTASSIUM CHLORIDE 20 MEQ in WATER FOR INJECTION 1 100ML.BAG IVPB STA (12:16)
[2019-06-21] MEDS ORDERED: SODIUM CHLORIDE 0.9% 1,000 ML IV ONE (14:37)
[2019-06-21] MEDS ORDERED: Potassium Replacement Protocol 1 EACH MISC MISCELLANE PRN (14:38)
[2019-06-21 14:55] LABS: Appearance,Urine Clear (Clear); Bilirubin,Urine Negative (Negative); Blood,Urine Negative (Negative); Color,Urine Yellow; Glucose,Urine (UA) Negative (Negative); Ketones,Urine Negative (Negative); Leukocyte Esterase,Urine Negative (Negative); Nitrite,Urine Negative (Negative); Protein,Urine Negative (Negative); Specific Gravity,Urine 1.016 (1.001-1.035); Urobilinogen,Urine <2.0 mg/dL (<2.0)
[2019-06-21] MEDS: POTASSIUM CHLORIDE ER 20 MEQ TAB.ER PO SCH ×3 (15:08→23:31)
[2019-06-21] MEDS ORDERED: clonazePAM 0.5 MG TAB PO PRN (17:58)
[2019-06-21] MEDS: SUCRALFATE 1 GM TAB PO SCH ×2 (18:51→21:11)
[2019-06-21] MEDS: PANTOPRAZOLE 40 MG TABLET PO SCH (18:51)
--- NOTE | 2019-06-21 19:20 | P.HPIM ---
History of Present Illness H&P Date: 06/21/19 Chief Complaint: palpitations 73-year-old female with PMH of diabetes, hypertension, CAD, hepatocellular liver cancer with chronically elevated ammonia levels presents to the ED for palpitations. Patient reports palpitations that woke her up around 2 AM this morning. Patient also reports lightheadedness at that time. Patient reports that she was able to go back to sleep and woke up around 6AM with similar symptoms. Patient denies headache, lower extremity swelling, nausea or vomiting, fever or chills, chest pain, shortness of breath, cough, changes in urination or bowel habits. In the ED, no arrhythmias were noted. Vital signs were stable. CBC showed a macrocytosis of 107. Coag panel showed INR 1.5. CMP showed potassium of 2.5, bicarbonate of 31, BUN of 18, Creatinine 1.29. Ammonia was 32. Troponin was 0.108. UA was negative for infections. Review of Systems Pertinent positives and negatives as discussed in HPI, a complete review of systems was performed and all other systems are negative. All systems: negative Past Medical History Past Medical History: Cancer, Diabetes Mellitus, Hypertension, Liver Disease, Myocardial Infarction ([place]), Renal Disease Additional Past Medical History / Comment(s): Hepatocellular liver cancer with chemo immobilization-last time being 2017, ascities with paracentesis's , nonal coholic liver cirrhosis, chronic pancytopenia, chronic elevated ammonia levels, hepatic encephalopathy, chronic elevated LFTs, chronic abdominal pain, stomach ulcer, diverticular disease with ileostomy, IDDM type II, iron anemia, CKD stage III, nonsustained vtach, UTI, high ammonia levels Last Myocardial Infarction Date:: unk History of Any Multi-Drug Resistant Organisms: MRSA, VRE Date of last positivie culture/infection: 06/12/19- VRE; 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 Past Anesthesia/Blood Transfusion Reactions: No Reported Reaction Past Psychological History: Anxiety, Depression Smoking Status: Former smoker Past Alcohol Use History: None Reported Past Drug Use History: None Reported - Past Family History Mother History Unknown: Yes Family Medical History: Congestive Heart Failure (CHF) Additional Family Medical History / Comment(s): Mother is 94 yrs old. Father Family Medical History: Chest Pain / Angina Additional Family Medical History / Comment(s): Father is . Medications and Allergies Home Medications Medication Instructions Recorded Confirmed Type Omeprazole [PriLOSEC] 20 mg PO BID 10/23/18 06/21/19 History Sucralfate [Carafate] 1 gm PO QID 10/23/18 06/21/19 History Insulin Regular, Human [NovoLIN R] 10 unit SQ AC-TID 10/24/18 06/21/19 History Cholecalciferol [Vitamin D3 (25 4,000 unit PO DAILY 01/16/19 06/21/19 History Mcg = 1000 Iu)] Ferrous Sulfate [Iron (65 MG 325 mg PO BID 01/31/19 06/21/19 History Elemental)] Insulin NPH [humuLIN N] 18 unit SQ BID vial 02/06/19 06/21/19 Rx Magnesium Oxide [William] 500 mg PO BID #6 tablet 05/05/19 06/21/19 Rx Morphine Sulfate [Ms Contin] 15 mg PO BID 05/15/19 06/21/19 History Dicyclomine [Bentyl] 10 mg PO TID 06/12/19 06/21/19 History Lactulose 67.5 gm PO TID 06/12/19 06/21/19 History Metoprolol Tartrate [Lopressor] 6.25 mg PO DAILY 06/12/19 06/21/19 History Ondansetron Odt [Zofran ODT] 8 mg SL DAILY PRN 06/12/19 06/21/19 History buPROPion HCL [Wellbutrin SR] 150 mg PO BID 06/12/19 06/21/19 History clonazePAM [KlonoPIN] 0.5 mg PO Q8HR PRN 06/12/19 06/21/19 History Allergies Allergy/AdvReac Type Severity Reaction Status Date / Time amlodipine Allergy Rash/Hives Verified 06/21/19 11:58 oxycodone Allergy Rash/Hives Verified 06/21/19 11:58 Penicillins Allergy Rash/Hives Verified 06/21/19 11:58 hydromorphone [From Dilaudid] AdvReac Mild tactile Verified 06/21/19 11:58 disturbance GREG Inhibitors AdvReac Cough Verified 06/21/19 11:58 sodium dodecyclbenzene Allergy Rash/Hives Uncoded 05/24/19 12:29 sulfonate Physical Exam Vitals: Vital Signs Temp Pulse Resp BP Pulse Ox 06/21/19 16:13 71 18 121/68 96 06/21/19 14:55 64 18 108/49 99 06/21/19 13:14 85 18 136/72 100 06/21/19 12:00 67 18 116/58 96 06/21/19 11:00 67 19 111/60 97 06/21/19 10:33 99.7 F H 75 18 111/60 98 Intake and Output 06/21/19 06/21/19 06/21/19 06:59 14:59 22:59 Other: Weight 90.718 kg General: [non toxic], [no distress], [appears at stated age] Derm: [warm], [dry] Head: [atraumatic], [normocephalic], [symmetric] Eyes: [EOMI], [no lid lag], [anicteric sclera] Mouth: [no lip lesion], [mucus membranes moist] Cardiovascular: [S1S2 reg], [no murmur], [positive DP pulse bilateral], Lungs: [CTA bilateral], [no rhonchi, no rales] , [no accessory muscle use] Abdominal: [soft], [no tenderness of palpation], [no guarding], [no appreciable organomegaly] Ext: [no gross muscle atrophy], [no edema], [no contractures] Neuro: [ CN II-XI grossly intact], [no focal neuro deficits] Psych: [Alert], [oriented], [appropriate affect] Results CBC & Chem 7: 06/21/19 10:40 06/21/19 10:40 Labs: Abnormal Lab Results - Last 24 Hours (Table) 06/21/19 06/21/19 06/21/19 Range/Units 10:40 10:40 10:40 RBC 3.62 L (3.80-5.40) m/uL MCV 107.0 H (80.0-100.0) fL MCH 35.4 H (25.0-35.0) pg Plt Count 77 L (150-450) k/uL Lymphocytes # 0.8 L (1.0-4.8) k/uL PT (9.0-12.0) sec INR (<1.2) Potassium 2.5 L* (3.5-5.1) mmol/L Carbon Dioxide 31 H (22-30) mmol/L BUN 18 H (7-17) mg/dL Creatinine 1.29 H (0.52-1.04) mg/dL Glucose 246 H (74-99) mg/dL Calcium 8.0 L (8.4-10.2) mg/dL Total Bilirubin 3.9 H (0.2-1.3) mg/dL AST 62 H (14-36) U/L Alkaline Phosphatase 232 H (38-126) U/L Ammonia 32 H (<30) umol/L Troponin I (0.000-0.034) ng/mL Albumin 2.9 L (3.5-5.0) g/dL 06/21/19 06/21/19 Range/Units 10:40 10:40 RBC (3.80-5.40) m/uL MCV (80.0-100.0) fL MCH (25.0-35.0) pg Plt Count (150-450) k/uL Lymphocytes # (1.0-4.8) k/uL PT 14.9 H (9.0-12.0) sec INR 1.5 H (<1.2) Potassium (3.5-5.1) mmol/L Carbon Dioxide (22-30) mmol/L BUN (7-17) mg/dL Creatinine (0.52-1.04) mg/dL Glucose (74-99) mg/dL Calcium (8.4-10.2) mg/dL Total Bilirubin (0.2-1.3) mg/dL AST (14-36) U/L Alkaline Phosphatase (38-126) U/L Ammonia (<30) umol/L Troponin I 0.108 H* (0.000-0.034) ng/mL Albumin (3.5-5.0) g/dL Assessment and Plan Assessment: Assessment and Plan Hypokalemia Troponin elevation Diabetes mellitus with hyperglycemia Hypertension Hepatocellular liver cancer with history of hepatic encephalopathy Acute kidney injury Potassium 2.5. Unknown etiology. Plans: 20 mEq IV now along with 40 mEq by mouth. Repeat BMP at 7 PM. Likely due to acute kidney injury. Troponin 0.108, EKG showing normal sinus rhythm, left axis deviation and RBBB. Plans: Trend troponin/EKG to rule out ACS. Has been previously seen in June 2019 for troponin elevation as high 0.124, evaluated by cardiology and had an echocardiogram which showed EF of 50- 55% without regional wall motion abnormalities. Telemetry monitoring. [id number] glucose 246. Plans: Start home insulin dose. Regular Accu-Cheks. Hypoglycemic precautions. BP 121/68. Plans: Continue metoprolol. Monitor vitals, adjust medications as necessary. Ammonia 31. Plans: Needs adequate outpatient follow-up. Continue lactulose. Creatinine 1.29 likely secondary to dehydration. Plans: Continue normal saline. Repeat BMP in AM. Avoid nephrotoxins. Patient admitted for palpitations, no arrhythmia seen in the ED. Found to have elevated troponins that are chronic. Potassium 2.5, admitted for IV replacement.
[2019-06-21 20:49] VITALS: BMI 29.7
[2019-06-21 20:52] LABS: Glucose,Whole Blood 296 mg/dL (75-99)
[2019-06-21] MEDS: FERROUS SULFATE 325 MG TAB PO SCH (21:10)
[2019-06-21] MEDS: buPROPion SR 150 MG TABLET.ER PO SCH (21:10)
[2019-06-21] MEDS: MORPHINE SULFATE ER 15 MG TABLET PO SCH (21:10)
[2019-06-21] MEDS: MAGNESIUM OXIDE 400 MG TAB PO SCH (21:10)
[2019-06-21] MEDS: DICYCLOMINE 10 MG CAP PO SCH (21:11)
[2019-06-21] MEDS: LACTULOSE 20 GM/30 ML CUP PO SCH (21:11)
[2019-06-21] MEDS: INSULIN NPH 300 UNIT/3 ML VIAL SQ SCH (21:13)
[2019-06-22] MEDS: traMADol 50 MG TAB PO PRN ×2 (00:26→22:53)
[2019-06-22] MEDS: POTASSIUM CHLORIDE ER 20 MEQ TAB.ER PO SCH (00:26)
[2019-06-22] MEDS: PANTOPRAZOLE 40 MG TABLET PO SCH (06:54)
[2019-06-22 06:55] LABS: Glucose,Whole Blood 82 mg/dL (75-99)
[2019-06-22] MEDS ORDERED: Potassium Replacement Protocol 1 EACH MISC MISCELLANE PRN (07:20)
[2019-06-22] MEDS: CHOLECALCIFEROL 1,000 UNIT TAB PO SCH (08:44)
[2019-06-22] MEDS: DICYCLOMINE 10 MG CAP PO SCH ×3 (08:45→21:16)
[2019-06-22] MEDS: FERROUS SULFATE 325 MG TAB PO SCH ×2 (08:45→19:58)
[2019-06-22] MEDS: SUCRALFATE 1 GM TAB PO SCH ×4 (08:45→21:16)
[2019-06-22] MEDS: METOPROLOL TARTRATE 12.5 MG TAB PO SCH (08:45)
[2019-06-22] MEDS: MORPHINE SULFATE ER 15 MG TABLET PO SCH ×2 (08:45→19:58)
[2019-06-22] MEDS: buPROPion SR 150 MG TABLET.ER PO SCH ×2 (08:45→19:58)
[2019-06-22] MEDS: MAGNESIUM OXIDE 400 MG TAB PO SCH ×2 (08:46→19:59)
[2019-06-22] MEDS: LACTULOSE 20 GM/30 ML CUP PO SCH ×3 (08:46→21:16)
[2019-06-22] MEDS: POTASSIUM CHLORIDE 10 MEQ in WATER FOR INJECTION 1 100ML.BAG IVPB SCH ×4 (08:47→16:27)
[2019-06-22] MEDS: INSULIN NPH 300 UNIT/3 ML VIAL SQ SCH ×2 (09:01→19:59)
--- NOTE | 2019-06-22 09:08 | P.CRDCN ---
History of Present Illness Consult date: 06/22/19 Requesting physician: Isa Dowd Reason for Consult (text): Palpitations Chief complaint: Palpitations History of present illness: This is a 73-year-old female with past medical history significant for hypertension, hepatocellular carcinoma status post chemoembolization, recurrent ascites and frequent paracentesis, nonalcoholic liver cirrhosis, diabetes, hyperlipidemia, prior nicotine dependence, chronic kidney disease, frequent UTIs with MRSA. She's had several admissions to the hospital with symptoms of abdominal discomfort associated with gastroenteritis. Patient was most recently in the hospital at the end of May into early June. She presents to the hospital on this admission with symptoms of palpitations, mild associated dizziness and headache. Her EKG on arrival here showed a normal sinus rhythm with a right bundle branch block pattern and nonspecific ST-T wave changes similar to prior EKGs. There have been no arrhythmias noted on the monitor this far, and patient also states since her arrival here she has had no further palpitations. Chest x-ray does not reveal any acute process. Let pressure 128/70 with a heart rate in the 60s, 100% on room air. White blood cell count 5.1, hemoglobin 12.8, platelet count 77, sodium 138, potassium 3.1 on admission, 3.0 this morning, BUN 18, creatinine 1.2, glucose 296. Troponins 0.10, 0.10, 0.08. Patient always has troponin abnormality within this range. At the time of my examination this morning, patient feels mildly weak, other than that has no complaints. No further episodes of palpitations. Past Medical History Past Medical History: Cancer, Diabetes Mellitus, Hypertension, Liver Disease, Myocardial Infarction (CO), Renal Disease Additional Past Medical History / Comment(s): Hepatocellular liver cancer with chemo immobilization-last time being 2017, ascities with paracentesis's may 2019, nonalcoholic liver cirrhosis, chronic pancytopenia, chronic elevated ammonia levels, hepatic encephalopathy, chronic elevated LFTs, chronic abdominal pain, stomach ulcer, diverticular disease with ileostomy, IDDM type II, iron anemia, CKD stage III, nonsustained vtach, UTI, high ammonia levels Last Myocardial Infarction Date:: unk History of Any Multi-Drug Resistant Organisms: MRSA, VRE Date of last positivie culture/infection: 06/12/19- VRE; 2/15/19-MRSA MDRO Source:: Urine VRE & MRSA Past Surgical History: Appendectomy, Bowel Resection, Section, Cholecystectomy, Hysterectomy, Tonsillectomy Additional Past Surgical History / Comment(s): Chemo immobilizations, liver biopsies, paracentesis, bowel resection d/t diverticulitis/ileostomy, R rotator cuff repair, carpal tunnel release-laterality unknown. Past Anesthesia/Blood Transfusion Reactions: No Reported Reaction Past Psychological History: Anxiety, Depression Additional Psychological History / Comment(s): Reformed smoker. . Retired. No experience. No animal exposures Smoking Status: Former smoker Past Alcohol Use History: None Reported Additional Past Alcohol Use History / Comment(s): started smoking 1962 and quit 1965 Past Drug Use History: None Reported - Past Family History Mother History Unknown: Yes Family Medical History: Congestive Heart Failure (CHF) Additional Family Medical History / Comment(s): Mother is 94 yrs old. Father Family Medical History: Chest Pain / Angina Additional Family Medical History / Comment(s): Father is . Medications and Allergies Home Medications Medication Instructions Recorded Confirmed Type Omeprazole [PriLOSEC] 20 mg PO BID 10/23/18 06/21/19 History Sucralfate [Carafate] 1 gm PO QID 10/23/18 06/21/19 History Insulin Regular, Human [NovoLIN R] 10 unit SQ AC-TID 10/24/18 06/21/19 History Cholecalciferol [Vitamin D3 (25 4,000 unit PO DAILY 01/16/19 06/21/19 History Mcg = 1000 Iu)] Ferrous Sulfate [Iron (65 MG 325 mg PO BID 01/31/19 06/21/19 History Elemental)] Insulin NPH [humuLIN N] 18 unit SQ BID vial 02/06/19 06/21/19 Rx Magnesium Oxide [William] 500 mg PO BID #6 tablet 05/05/19 06/21/19 Rx Morphine Sulfate [Ms Contin] 15 mg PO BID 05/15/19 06/21/19 History Dicyclomine [Bentyl] 10 mg PO TID 06/12/19 06/21/19 History Lactulose 67.5 gm PO TID 06/12/19 06/21/19 History Metoprolol Tartrate [Lopressor] 6.25 mg PO DAILY 06/12/19 06/21/19 History Ondansetron Odt [Zofran ODT] 8 mg SL DAILY PRN 06/12/19 06/21/19 History buPROPion HCL [Wellbutrin SR] 150 mg PO BID 06/12/19 06/21/19 History clonazePAM [KlonoPIN] 0.5 mg PO Q8HR PRN 06/12/19 06/21/19 History Allergies Allergy/AdvReac Type Severity Reaction Status Date / Time amlodipine Allergy Rash/Hives Verified 06/21/19 11:58 oxycodone Allergy Rash/Hives Verified 06/21/19 11:58 Penicillins Allergy Rash/Hives Verified 06/21/19 11:58 hydromorphone [From Dilaudid] AdvReac Mild tactile Verified 06/21/19 11:58 disturbance GREG Inhibitors AdvReac Cough Verified 06/21/19 11:58 sodium dodecyclbenzene Allergy Rash/Hives Uncoded 05/24/19 12:29 sulfonate Physical Exam Vitals: Vital Signs Temp Pulse Pulse Resp BP BP Pulse Ox 06/22/19 04:00 98.0 F 66 18 129/75 100 06/21/19 23:10 68 16 06/21/19 23:08 98.8 F 68 16 126/75 98 06/21/19 20:36 98.6 F 70 18 127/71 100 06/21/19 20:30 98.6 F 70 18 127/71 100 06/21/19 20:18 99.2 F 65 18 121/66 99 06/21/19 20:00 70 18 06/21/19 18:16 98.5 F 65 18 112/67 98 06/21/19 16:13 71 18 121/68 96 06/21/19 14:55 64 18 108/49 99 06/21/19 13:14 85 18 136/72 100 06/21/19 12:00 67 18 116/58 96 06/21/19 11:00 67 19 111/60 97 06/21/19 10:33 99.7 F H 75 18 111/60 98 Intake and Output 06/21/19 06/22/19 06/22/19 22:59 06:59 14:59 Intake Total 300 236 Output Total 500 Balance -200 236 Intake: Oral 300 236 Output: Stool 500 Other: Voiding Method Toilet Toilet # Voids 1 Weight 92 kg PHYSICAL EXAMINATION: GENERAL: 73-year-old female in no acute distress at the time of my examination HEENT: Head is atraumatic, normocephalic. Pupils equal, round. Sclera anicteric. Conjunctiva are clear. Mucous membranes of the mouth are moist. Neck is supple. There is no elevated jugular venous pressure. No carotid bruit is heard. HEART EXAMINATION: Heart S1 and S2 with systolic murmur is heard CHEST EXAMINATION: Lungs are clear to auscultation and precussion. No chest wall tenderness is noted on palpation or with deep breathing. ABDOMEN: Soft, obese, nontender. Bowel sounds are heard. No organomegaly noted. Ileostomy in place EXTREMITIES: 2+ peripheral pulses with no evidence of peripheral edema and no calf tenderness noted. NEUROLOGIC patient is awake, alert and oriented 3 . Results 06/21/19 10:40 06/22/19 06:22 Cardiac Enzymes 06/21/19 06/21/19 06/21/19 Range/Units 10:40 10:40 16:49 AST 62 H (14-36) U/L Troponin I 0.108 H* 0.107 H* (0.000-0.034) ng/mL 06/21/19 Range/Units 23:22 AST (14-36) U/L Troponin I 0.087 H* (0.000-0.034) ng/mL Coagulation 06/21/19 Range/Units 10:40 PT 14.9 H (9.0-12.0) sec APTT 27.4 (22.0-30.0) sec CBC 06/21/19 Range/Units 10:40 WBC 5.1 (3.8-10.6) k/uL RBC 3.62 L (3.80-5.40) m/uL Hgb 12.8 (11.4-16.0) gm/dL Hct 38.7 (34.0-46.0) % Plt Count 77 L (150-450) k/uL Comprehensive Metabolic Panel 06/21/19 06/21/19 06/22/19 Range/Units 10:40 19:56 06:22 Sodium 138 (137-145) mmol/L Potassium 2.5 L* 3.1 L 3.0 L (3.5-5.1) mmol/L Chloride 98 (98-107) mmol/L Carbon Dioxide 31 H (22-30) mmol/L BUN 18 H (7-17) mg/dL Creatinine 1.29 H (0.52-1.04) mg/dL Glucose 246 H (74-99) mg/dL Calcium 8.0 L (8.4-10.2) mg/dL AST 62 H (14-36) U/L ALT 32 (9-52) U/L Alkaline Phosphatase 232 H (38-126) U/L Total Protein 6.5 (6.3-8.2) g/dL Albumin 2.9 L (3.5-5.0) g/dL Current Medications Generic Name Dose Route Start Last Admin Trade Name Freq PRN Reason Stop Dose Admin Bupropion HCl 150 mg 06/21/19 21:00 06/22/19 08:45 Wellbutrin Sr PO 150 mg BID JENNY Administration Cholecalciferol 4,000 unit 06/22/19 09:00 06/22/19 08:44 Vitamin D3 (25 Mcg = 1000 Iu) PO 4,000 unit DAILY JENNY Administration Clonazepam 0.5 mg 06/21/19 17:58 Klonopin PO Q8HR PRN Anxiety Dicyclomine HCl 10 mg 06/21/19 22:00 06/22/19 08:45 Bentyl PO 10 mg TID JENNY Administration Ferrous Sulfate 325 mg 06/21/19 21:00 06/22/19 08:45 Feosol PO 325 mg BID JENNY Administration Potassium Chloride 10 meq/ IV 100 mls @ 100 mls/hr 06/22/19 08:00 06/22/19 08:47 Solution IVPB 06/22/19 11:59 100 mls/hr Q1HR JENNY Administration Protocol Insulin Human NPH 18 unit 06/21/19 21:00 06/21/19 21:13 Humulin N SQ 18 unit BID JENNY Administration Insulin Human Regular 10 unit 06/22/19 07:30 Humulin R SQ AC-TID [facility] Lactulose 67.5 gm 06/21/19 22:00 06/22/19 08:46 Cephulac PO 67.5 gm TID JENNY Administration Magnesium Oxide 400 mg 06/21/19 21:00 06/22/19 08:46 Mag-Ox PO 400 mg BID JENNY Administration Metoprolol Tartrate 6.25 mg 06/22/19 09:00 06/22/19 08:45 Lopressor PO 6.25 mg DAILY JENNY Administration Miscellaneous Information 1 each 06/22/19 07:20 Potassium Per Protocol MISCELLANE DAILY PRN Per Protocol Protocol Morphine Sulfate 15 mg 06/21/19 21:00 06/22/19 08:45 Ms Contin PO 15 mg BID JENNY Administration Pantoprazole Sodium 40 mg 06/21/19 18:15 06/22/19 06:54 Protonix PO 40 mg AC-BRKFST JENNY Administration Sucralfate 1 gm 06/21/19 18:00 06/22/19 08:45 Carafate PO 1 gm QID JENNY Administration Tramadol HCl 50 mg 06/22/19 00:12 06/22/19 00:26 Ultram PO 50 mg TID PRN Administration Pain Intake and Output 06/21/19 06/22/19 06/22/19 22:59 06:59 14:59 Intake Total 300 236 Output Total 500 Balance -200 236 Intake: Oral 300 236 Output: Stool 500 Other: Voiding Method Toilet Toilet # Voids 1 Weight 92 kg 06/21/19 10:40 06/22/19 06:22 EKG Interpretations (text) EKG shows normal sinus rhythm with right bundle branch block pattern and nonspecific ST-T wave changes Assessment and Plan Plan: Assessment and plan #1 symptoms of palpitations with associated dizziness and lightheadedness. No arrhythmias have been detected on the monitor so far. Patient's EKG shows a normal sinus rhythm with right bundle branch block pattern and nonspecific ST-T wave changes, similar to prior EKGs. #2 non-CO elevated troponin secondary to chronic kidney disease #3 history of hepatocellular carcinoma status post chemoembolization #4 nonalcoholic liver cirrhosis with frequent paracentesis #5 history of pancytopenia #6 chronic kidney disease #7 diabetes #8 hyperlipidemia #9 history of prior ventricular tachycardia #10 hypokalemia #11 hypomagnesemia Plan We will replace potassium and magnesium. Continue to monitor for any arrhythmias. If no arrhythmias are detected here, recommend an event monitor as an outpatient. An echocardiogram with Doppler study was performed in March which revealed a normal left ventricular systolic function. Further recommendations to follow. DNP note has been reviewed, I agree with a documented findings and plan of care. Patient was seen and examined.
[2019-06-22] MEDS: INSULIN REGULAR 100 UNIT/ML VIAL SQ SCH ×3 (09:52→17:33)
[2019-06-22 11:36] LABS: Glucose,Whole Blood 137 mg/dL (75-99)
--- NOTE | 2019-06-22 16:25 | P.PN ---
Subjective Progress Note Date: 06/22/19 Principal diagnosis: Patient is a 73-year-old female with a PMH of hepatocellular carcinoma status post embolization 3, status post ileostomy, nonalcoholic liver cirrhosis chronic abdominal pain, chronically elevated LFTs, hypertension, anxiety, and diabetes mellitus and frequent UTIs with MRSA. who presented to the ED with complaints of dizziness, weakness and palpitations and was found to be profoundly hypokalemic with a potassium of 3.1. Patient has chronically elevate d troponins and her troponin level was 0.087. EKG showed normal sinus mechanism with a right bundle-branch block and nonspecific ST-T wave changes similar to her previous EKGs and chest x-ray was negative, Showed a preserved LVEF of 55- 60%. On previous discharge patient was prescribed rifaximin and has been unable to fill this medication secondary to insurance refusal, she reports ongoing output in her ileostomy approximately about once every hour hence her lactulose was decreased to 40 g PO TID times a day Patient seen and examined at bedside, denies any recurrence of her symptoms of palpitations and says that she's feeling weak and was able to ambulate and potassium has been corrected now at 4.0, Objective - Vital Signs Vital signs: Vital Signs Temp 98.1 F 06/22/19 12:21 Pulse 60 06/22/19 12:21 Resp 18 06/22/19 12:21 BP 95/49 06/22/19 12:21 Pulse Ox 98 06/22/19 12:21 Intake & Output 06/21/19 06/22/19 06/22/19 18:59 06:59 18:59 Intake Total 300 680 Output Total 500 1000 Balance -200 -320 Weight 90.718 kg 92 kg Intake: Oral 300 680 Output: Stool 500 1000 Other: Voiding Method Toilet Toilet # Voids 1 # Bowel Movements 4 - Exam Constitutional: No acute distress, conversant, pleasant Eyes: Anicteric sclerae, moist conjunctiva, no lid-lag, PERRLA ENMT: NC/AT,Oropharynx clear, no erythema, exudates Neck:Supple, FROM, no masses, or JVD, No carotid bruits; No thyromegaly Lungs: Clear to auscultation, Clear to percussion, Normal respiratory effort, no accessory muscle use Cardiovascular: Heart regular in rate and rhythm, No murmurs, gallops, or rubs no peripheral edema Abdominal: Soft Nontender, nom distended, ileostomy in place, No palpable mass No abdominal wall hernia noted Skin: Normal temperature, tone, texture, turgor, No induration No subcutaneous nodules, No rash, lesions, No ulcers Extremities:No digital cyanosis No clubbing, Pedal pulses intact and symmetrical Radial pulses intact and symmetrical Normal gait and station, No calf tenderness Psychiatric: Alert and oriented to person, place and time, Appropriate affect Intact judgement Neuro: Muscles Strength 5/5 in all 4 extremities, Sensation to light touch grossly present throughout, Cranial nerves II-XII grossly intact. No focal sensory deficits - Labs CBC & Chem 7: 06/21/19 10:40 06/22/19 15:08 Labs: Abnormal Lab Results - Last 24 Hours (Table) 06/21/19 06/21/19 06/21/19 Range/Units 16:49 19:56 20:50 Potassium 3.1 L (3.5-5.1) mmol/L POC Glucose (mg/dL) 296 H (75-99) mg/dL Troponin I 0.107 H* (0.000-0.034) ng/mL 06/21/19 06/22/19 06/22/19 Range/Units 23:22 06:22 11:34 Potassium 3.0 L (3.5-5.1) mmol/L POC Glucose (mg/dL) 137 H (75-99) mg/dL Troponin I 0.087 H* (0.000-0.034) ng/mL Assessment and Plan (1) Palpitations Narrative/Plan: * Continue monitoring on telemetry no arrhythmias have been identified * Echocardiogram in March already showed preserved LVEF * Patient can likely get a outpatient event monitoring per cardiology Current Visit: Yes Status: Acute Code(s): R00.2 - PALPITATIONS SNOMED Code(s): 29041237 (2) Elevated troponin Narrative/Plan: * Chronically elevated in the setting of CKD stage III Current Visit: Yes Status: Chronic Code(s): R74.8 - ABNORMAL LEVELS OF OTHER SERUM ENZYMES SNOMED Code(s): 273562032 (3) Chronic kidney disease, stage III (moderate) Narrative/Plan: * stable chronic kidney disease Current Visit: Yes Status: Chronic Code(s): N18.3 - CHRONIC KIDNEY DISEASE, STAGE 3 (MODERATE) SNOMED Code(s): 724704651 (4) Hypokalemia Narrative/Plan: * Continue potassium replacement protocol * Possibly precipitated by ongoing use of high dose lactulose for the patient's underlying nonalcoholic liver cirrhosis and hepatocellular carcinoma * Initiated on daily 40 mEq replacement Current Visit: Yes Status: Acute Code(s): E87.6 - HYPOKALEMIA SNOMED Code(s): 67341170 (5) Cirrhosis of liver with ascites Narrative/Plan: * Chronic stable compensated * Continue lactulose Current Visit: No Status: Chronic Code(s): K74.60 - UNSPECIFIED CIRRHOSIS OF LIVER; R18.8 - OTHER ASCITES SNOMED Code(s): 71178482 (6) Hepatocellular carcinoma Current Visit: No Status: Chronic Priority: Medium Code(s): C22.0 - LIVER CELL CARCINOMA SNOMED Code(s): 462606512 Plan: Disposition * We'll recheck electrolytes continue monitoring on telemetry * Anticipated discharge tomorrow
[2019-06-22 17:09] LABS: Glucose,Whole Blood 76 mg/dL (75-99)
[2019-06-22 19:57] LABS: Glucose,Whole Blood 62 mg/dL (75-99)
[2019-06-22 20:17] LABS: Glucose,Whole Blood 73 mg/dL (75-99)
[2019-06-23] MEDS: PANTOPRAZOLE 40 MG TABLET PO SCH (06:52)
[2019-06-23] MEDS: INSULIN REGULAR 100 UNIT/ML VIAL SQ SCH ×3 (06:53→17:11)
[2019-06-23 06:57] LABS: Glucose,Whole Blood 133 mg/dL (75-99)
[2019-06-23 08:56] LABS: Calcium 8.3 mg/dL (8.4-10.2); Potassium 4.1 mmol/L (3.5-5.1)
[2019-06-23] MEDS: SUCRALFATE 1 GM TAB PO SCH ×4 (09:04→21:25)
[2019-06-23] MEDS: CHOLECALCIFEROL 1,000 UNIT TAB PO SCH (09:04)
[2019-06-23] MEDS: buPROPion SR 150 MG TABLET.ER PO SCH ×2 (09:04→21:26)
[2019-06-23] MEDS: MORPHINE SULFATE ER 15 MG TABLET PO SCH ×2 (09:07→21:26)
[2019-06-23] MEDS: DICYCLOMINE 10 MG CAP PO SCH ×3 (09:07→21:25)
[2019-06-23] MEDS: MAGNESIUM OXIDE 400 MG TAB PO SCH ×2 (09:07→21:25)
[2019-06-23] MEDS: FERROUS SULFATE 325 MG TAB PO SCH ×2 (09:07→21:25)
[2019-06-23] MEDS: METOPROLOL TARTRATE 12.5 MG TAB PO SCH (09:08)
[2019-06-23] MEDS: LACTULOSE 20 GM/30 ML CUP PO SCH ×3 (09:09→21:26)
[2019-06-23] MEDS: POTASSIUM CHLORIDE ER 20 MEQ TAB.ER PO SCH (09:13)
[2019-06-23] MEDS: INSULIN NPH 300 UNIT/3 ML VIAL SQ SCH ×2 (09:58→21:27)
--- NOTE | 2019-06-23 10:32 | P.DS ---
Providers Date of admission: 06/21/19 14:37 Expected date of discharge: 06/23/19 Attending physician: Isa Dowd MD Consults: 06/21/19 19:20 Consult Physician Stat Consulting Provider: Yuri Keith Consult Reason/Comments: palpitations Do you want consulting provider notified?: Yes Primary care physician: Artemio Lea - Discharge Diagnosis(es) (1) Palpitations Current Visit: Yes Status: Acute (2) Elevated troponin Current Visit: Yes Status: Chronic (3) Chronic kidney disease, stage III (moderate) Current Visit: Yes Status: Chronic (4) Hypokalemia Current Visit: Yes Status: Acute (5) Cirrhosis of liver with ascites Current Visit: No Status: Chronic (6) Hepatocellular carcinoma Current Visit: No Status: Chronic Priority: Medium Hospital Course: Patient is a 73-year-old female with a PMH of hepatocellular carcinoma status post embolization 3, status post ileostomy, nonalcoholic liver cirrhosis chronic abdominal pain, chronically elevated LFTs, hypertension, anxiety, and diabetes mellitus and frequent UTIs with MRSA. who presented to the ED with complaints of dizziness, weakness and palpitations and was found to be profoundly hypokalemic with a potassium of 3.1. Patient has chronically elevated troponins and her troponin level was 0.087 in the setting of stable chronic kidney disease stage III. EKG showed normal sinus mechanism with a right bundle-branch block and nonspecific ST-T wave changes similar to her previous EKGs and chest x-ray was negative, previous echocardiogram in March 2019 Showed a preserved LVEF of 55-60%. On previous discharge patient was prescribed rifaximin and has been unable to fill this medication secondary to insurance refusal, she reports ongoing output in her ileostomy approximately about once every hour hence her lactulose was decreased to 40 g PO TID times a day as it was thought that her loose stools or precipitating her hypokalemia. The patient's was placed on potassium replacement protocol initiated on daily potassium replacement. The patient was monitored with no further recurrence of her symptoms with no identifiable cardiac arrhythmia on telemetry. She was subsequently discharged home in stable condition with plans for outpatient event monitoring by cardiology. This discharge process took approximately 35 minutes Focused exam Cardiovascular: Regular rate and rhythm, no murmurs rubs or gallops, no peripheral edema Patient Condition at Discharge: Good Plan - Discharge Summary Discharge Rx Participant: No New Discharge Prescriptions: New Lactulose [Cephulac] 40 gm PO TID 30 Days #30 Potassium Chloride ER [K-Dur 20] 40 meq PO DAILY #30 [email or web address].[email or web address] Continue Sucralfate [Carafate] 1 gm PO QID Omeprazole [PriLOSEC] 20 mg PO BID Insulin Regular, Human [NovoLIN R] 10 unit SQ AC-TID Cholecalciferol [Vitamin D3 (25 Mcg = 1000 Iu)] 4,000 unit PO DAILY Ferrous Sulfate [Iron (65 MG Elemental)] 325 mg PO BID Insulin NPH [humuLIN N] 18 unit SQ BID vial Magnesium Oxide [William] 500 mg PO BID #6 tablet Morphine Sulfate [Ms Contin] 15 mg PO BID Ondansetron Odt [Zofran ODT] 8 mg SL DAILY PRN PRN Reason: Nausea Metoprolol Tartrate [Lopressor] 6.25 mg PO DAILY Dicyclomine [Bentyl] 10 mg PO TID buPROPion HCL [Wellbutrin SR] 150 mg PO BID clonazePAM [KlonoPIN] 0.5 mg PO Q8HR PRN PRN Reason: Anxiety Discontinued Lactulose 67.5 gm PO TID Discharge Medication List Omeprazole [PriLOSEC] 20 mg PO BID 10/23/18 [History] Sucralfate [Carafate] 1 gm PO QID 10/23/18 [History] Insulin Regular, Human [NovoLIN R] 10 unit SQ AC-TID 10/24/18 [History] Cholecalciferol [Vitamin D3 (25 Mcg = 1000 Iu)] 4,000 unit PO DAILY 01/16/19 [History] Ferrous Sulfate [Iron (65 MG Elemental)] 325 mg PO BID 01/31/19 [History] Insulin NPH [humuLIN N] 18 unit SQ BID vial 02/06/19 [Rx] Magnesium Oxide [William] 500 mg PO BID #6 tablet 05/05/19 [Rx] Morphine Sulfate [Ms Contin] 15 mg PO BID 05/15/19 [History] Dicyclomine [Bentyl] 10 mg PO TID 06/12/19 [History] Metoprolol Tartrate [Lopressor] 6.25 mg PO DAILY 06/12/19 [History] Ondansetron Odt [Zofran ODT] 8 mg SL DAILY PRN 06/12/19 [History] buPROPion HCL [Wellbutrin SR] 150 mg PO BID 06/12/19 [History] clonazePAM [KlonoPIN] 0.5 mg PO Q8HR PRN 06/12/19 [History] Lactulose [Cephulac] 40 gm PO TID 30 Days #30 06/23/19 [Rx] Potassium Chloride ER [K-Dur 20] 40 meq PO DAILY #30 tab.er.prt 06/23/19 [Rx] Follow up Appointment(s)/Referral(s): Wilver Lux MD [STAFF PHYSICIAN] - 06/27/19 9:15 am (Wednesday -previously scheduled appointment) [facility], [NON-STAFF] - Artemio Lea MD [Primary Care Provider] - 06/30/19 10:30 am (Wednesday -previously scheduled appointment) Patient Instructions/Handouts: Heart Palpitations (DC), Hypokalemia (DC) Activity/Diet/Wound Care/Special Instructions: 30 day event monitor-black pickler from cardiology office post discharge. (between 8- 12pm or 1-4:30pm) Discharge Disposition: HOME SELF-CARE
[2019-06-23 12:18] LABS: Glucose,Whole Blood 153 mg/dL (75-99)
--- NOTE | 2019-06-23 12:27 | P.PN ---
Subjective Progress Note Date: 06/23/19 This is a 73-year-old female with past medical history significant for hypertension, hepatocellular carcinoma status post chemoembolization, recurrent ascites and frequent paracentesis, nonalcoholic liver cirrhosis, diabetes, hyperlipidemia, prior nicotine dependence, chronic kidney disease, frequent UTIs with MRSA. She's had several admissions to the hospital with symptoms of abdominal discomfort associated with gastroenteritis. Patient was most recently in the hospital at the end of May into early June. She presents to the hospital on this admission with symptoms of palpitations, mild associated dizziness and headache. Her EKG on arrival here showed a normal sinus rhythm with a right bundle branch block pattern and nonspecific ST-T wave changes similar to prior EKGs. There have been no arrhythmias noted on the monitor this far, and patient also states since her arrival here she has had no further palpitations. Chest x-ray does not reveal any acute process. Let pressure 128/70 with a heart rate in the 60s, 100% on room air. White blood cell count 5.1, hemoglobin 12.8, platelet count 77, sodium 138, potassium 3.1 on admission, 3.0 this morning, BUN 18, creatinine 1.2, glucose 296. Troponins 0.10, 0.10, 0.08. Patient always has troponin abnormality within this range. At the time of my examination this morning, patient feels mildly weak, other than that has no complaints. No further episodes of palpitations. 06/23/2019 Patient was seen and examined this morning, no arrhythmias have been noted on the monitor. Blood pressure 110/60 with a heart rate of 60. Objective - Vital Signs Vital signs: Vital Signs Temp 99 F 06/23/19 08:00 Pulse 62 06/23/19 08:00 Resp 16 06/23/19 08:00 BP 111/66 06/23/19 08:00 Pulse Ox 96 06/23/19 08:00 Intake & Output 06/22/19 06/23/19 06/23/19 18:59 06:59 18:59 Intake Total 920 240 Output Total 1500 Balance -580 240 Weight 93 kg Intake: Oral 920 240 Output: Stool 1500 Other: Voiding Method Toilet Toilet Toilet # Voids 1 1 1 # Bowel Movements 4 1 - Exam PHYSICAL EXAMINATION: GENERAL: 73-year-old female in no acute distress at the time of my examination HEENT: Head is atraumatic, normocephalic. Pupils equal, round. Sclera anicteric. Conjunctiva are clear. Mucous membranes of the mouth are moist. Neck is supple. There is no elevated jugular venous pressure. No carotid bruit is heard. HEART EXAMINATION: Heart S1 and S2 with systolic murmur is heard CHEST EXAMINATION: Lungs are clear to auscultation and precussion. No chest wall tenderness is noted on palpation or with deep breathing. ABDOMEN: Soft, obese, nontender. Bowel sounds are heard. No organomegaly noted. Ileostomy in place EXTREMITIES: 2+ peripheral pulses with no evidence of peripheral edema and no calf tenderness noted. NEUROLOGIC patient is awake, alert and oriented 3 . - Labs CBC & Chem 7: 06/21/19 10:40 06/23/19 07:50 Labs: Abnormal Lab Results - Last 24 Hours (Table) 06/22/19 06/22/19 06/23/19 Range/Units 19:56 20:14 06:53 Creatinine (0.52-1.04) mg/dL Glucose (74-99) mg/dL POC Glucose (mg/dL) 62 L 73 L 133 H (75-99) mg/dL Calcium (8.4-10.2) mg/dL 06/23/19 Range/Units 07:50 Creatinine 1.06 H (0.52-1.04) mg/dL Glucose 144 H (74-99) mg/dL POC Glucose (mg/dL) (75-99) mg/dL Calcium 8.3 L (8.4-10.2) mg/dL Assessment and Plan Plan: Assessment and plan #1 symptoms of palpitations with associated dizziness and lightheadedness. No arrhythmias have been detected on the monitor so far. Patient's EKG shows a normal sinus rhythm with right bundle branch block pattern and nonspecific ST-T wave changes, similar to prior EKGs. #2 non-VT elevated troponin secondary to chronic kidney disease #3 history of hepatocellular carcinoma status post chemoembolization #4 nonalcoholic liver cirrhosis with frequent paracentesis #5 history of pancytopenia #6 chronic kidney disease #7 diabetes #8 hyperlipidemia #9 history of prior ventricular tachycardia #10 hypokalemia #11 hypomagnesemia Plan Patient has had no documented arrhythmias on the monitor. From our perspective she may be able to be discharged, we recommend she go home with a 30 day event monitor. Follow-up appointment in the office. We will follow her now PRn. DNP note has been reviewed, I agree with a documented findings and plan of care. Patient was seen and examined.
[2019-06-23 17:07] LABS: Glucose,Whole Blood 133 mg/dL (75-99)
[2019-06-23 20:02] LABS: Glucose,Whole Blood 187 mg/dL (75-99)
[2019-06-23 23:43] VITALS: RESP 18
[2019-06-24 06:56] LABS: Glucose,Whole Blood 120 mg/dL (75-99)
[2019-06-24] MEDS: INSULIN REGULAR 100 UNIT/ML VIAL SQ SCH ×2 (07:03→12:34)
[2019-06-24] MEDS: PANTOPRAZOLE 40 MG TABLET PO SCH (07:03)
[2019-06-24 08:56] LABS: Glucose,Whole Blood 134 mg/dL (75-99)
[2019-06-24] MEDS: buPROPion SR 150 MG TABLET.ER PO SCH (09:10)
[2019-06-24] MEDS: MORPHINE SULFATE ER 15 MG TABLET PO SCH (09:10)
[2019-06-24] MEDS: FERROUS SULFATE 325 MG TAB PO SCH (09:11)
[2019-06-24] MEDS: DICYCLOMINE 10 MG CAP PO SCH (09:11)
[2019-06-24] MEDS: METOPROLOL TARTRATE 12.5 MG TAB PO SCH (09:11)
[2019-06-24] MEDS: SUCRALFATE 1 GM TAB PO SCH ×2 (09:11→12:34)
[2019-06-24] MEDS: POTASSIUM CHLORIDE ER 20 MEQ TAB.ER PO SCH (09:11)
[2019-06-24] MEDS: CHOLECALCIFEROL 1,000 UNIT TAB PO SCH (09:11)
[2019-06-24] MEDS: INSULIN NPH 300 UNIT/3 ML VIAL SQ SCH (09:12)
[2019-06-24] MEDS: LACTULOSE 20 GM/30 ML CUP PO SCH (09:12)
[2019-06-24] MEDS: MAGNESIUM OXIDE 400 MG TAB PO SCH (09:12)
[2019-06-24 10:15] VITALS: BP 117/66; PULSE 66; TEMP 98.4
[2019-06-24 12:39] LABS: Glucose,Whole Blood 171 mg/dL (75-99)
== END 2019-06-24 13:06 | disposition home health service (06) | DRG 641 ==
LOC: EC 10:29 → 3SCARD 14:37
PROVIDERS: ADMIT Family Medicine; ATTEND Family Medicine
DX: E87.6 Hypokalemia (principal); N17.9 Acute kidney failure, unspecified; C22.0 Liver cell carcinoma; E11.65 Type 2 diabetes mellitus with hyperglycemia; E11.22 Type 2 diabetes mellitus with diabetic chronic kidney disease; E86.0 Dehydration; F32.9 Major depressive disorder, single episode, unspecified; E78.5 Hyperlipidemia, unspecified; E83.42 Hypomagnesemia; N18.3 Chronic kidney disease, stage 3 (moderate); K74.60 Unspecified cirrhosis of liver; I45.10 Unspecified right bundle-branch block; Z66 Do not resuscitate; Z51.5 Encounter for palliative care; R00.2 Palpitations; I12.9 Hypertensive chronic kidney disease with stage 1 through stage 4 chronic kidney disease, or unspecified chronic kidney disease; R77.8 Other specified abnormalities of plasma proteins; F41.9 Anxiety disorder, unspecified; G89.29 Other chronic pain; I25.2 Old myocardial infarction; I25.10 Atherosclerotic heart disease of native coronary artery without angina pectoris; Z79.4 Long term (current) use of insulin; Z79.891 Long term (current) use of opiate analgesic; Z79.899 Other long term (current) drug therapy; Z93.2 Ileostomy status; Z87.440 Personal history of urinary (tract) infections; Z86.14 Personal history of Methicillin resistant Staphylococcus aureus infection; Z86.19 Personal history of other infectious and parasitic diseases; Z92.21 Personal history of antineoplastic chemotherapy; Z87.891 Personal history of nicotine dependence; Z87.11 Personal history of peptic ulcer disease; Z90.49 Acquired absence of other specified parts of digestive tract; Z90.710 Acquired absence of both cervix and uterus; Z98.891 History of uterine scar from previous surgery; Z98.890 Other specified postprocedural states; Z88.5 Allergy status to narcotic agent; Z88.2 Allergy status to sulfonamides; Z88.8 Allergy status to other drugs, medicaments and biological substances; Z82.49 Family history of ischemic heart disease and other diseases of the circulatory system; Z86.79 Personal history of other diseases of the circulatory system
CPT/HCPCS: 36415; 71046; 80048; 80053; 81003; 82140; 83735; 84132; 84484; 85025; 85610; 85730; 93005; 96361; 96365; 96366; 99285

== ENCOUNTER 2019-07-22 00:17 | Inpatient (IN) | payer MEDICARE ==
[2019-07-22] MEDS ORDERED: SODIUM CHLORIDE 0.9% 500 ML 500 ML IV ONE (00:42)
--- NOTE | 2019-07-22 00:42 | ED ---
Altered Mental Status HPI - General Source: patient, family Mode of arrival: wheelchair Limitations: altered mental status <Shyann Rockwell - Last Filed: 07/22/19 03:00> <Chris Ballesteros - Last Filed: 07/23/19 07:41> - General Chief Complaint: Altered Mental Status Stated Complaint: Altered Mental Status Time Seen by Provider: 07/22/19 00:31 - History of Present Illness Initial Comments: 73-year-old female patient with past medical history significant for liver cancer, diabetes, hypertension, VT presents to the emergency department today for evaluation of altered mental status. Patient states that she has been feeling unwell for the last few days. Patient states today she did have an episode of vomiting. States she feels confused and weak. Patient believes her ammonia level may be elevated as it has been in the past. Patient's son said that she was doing bizarre things at home such as leaving the sink on, putting her phone in the medicine cabinet, and not putting her medications and the fridge. 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 She is reporting dysuria and urinary frequency. Patient does have a colostomy, states her stools have been watery. Patient denies any recent rash, fever, chills, shortness breath, chest pain, abdominal pain, back pain, numbness, tingling, dizziness, weakness, headache, visual changes, or any other complaints. (Shyann Rockwell) - Related Data Home Medications Medication Instructions Recorded Confirmed Omeprazole [PriLOSEC] 20 mg PO BID 10/23/18 07/22/19 Sucralfate [Carafate] 1 gm PO QID 10/23/18 07/22/19 Insulin Regular, Human [NovoLIN R] 10 unit SQ AC-TID 10/24/18 07/22/19 Cholecalciferol [Vitamin D3 (25 4,000 unit PO DAILY 01/16/19 07/22/19 Mcg = 1000 Iu)] Ferrous Sulfate [Iron (65 MG 325 mg PO BID 01/31/19 07/22/19 Elemental)] Morphine Sulfate [Ms Contin] 15 mg PO BID 05/15/19 07/22/19 Dicyclomine [Bentyl] 10 mg PO TID PRN 06/12/19 07/22/19 Metoprolol Tartrate [Lopressor] 6.25 mg PO DAILY 06/12/19 07/22/19 Ondansetron Odt [Zofran ODT] 8 mg SL DAILY PRN 06/12/19 07/22/19 buPROPion HCL [Wellbutrin SR] 150 mg PO BID 06/12/19 07/22/19 clonazePAM [KlonoPIN] 0.5 mg PO Q8HR PRN 06/12/19 07/22/19 Lactulose [Cephulac] 30 gm PO TID 07/22/19 07/22/19 Previous Rx's Medication Instructions Recorded Insulin NPH [humuLIN N] 18 unit SQ BID vial 02/06/19 Allergies Allergy/AdvReac Type Severity Reaction Status Date / Time amlodipine Allergy Rash/Hives Verified 07/22/19 08:08 oxycodone Allergy Rash/Hives Verified 07/22/19 08:08 Penicillins Allergy Rash/Hives Verified 07/22/19 08:08 hydromorphone [From Dilaudid] AdvReac Mild tactile Verified 07/22/19 08:08 disturbance GREG Inhibitors AdvReac Cough Verified 07/22/19 08:08 sodium dodecyclbenzene Allergy Rash/Hives Uncoded 07/22/19 08:08 sulfonate Review of Systems ROS Other: All systems not noted in ROS Statement are negative. <Shyann Rockwell - Last Filed: 07/22/19 03:00> ROS Other: All systems not noted in ROS Statement are negative. <Chris Ballesteros - Last Filed: 07/23/19 07:41> ROS Statement: Those systems with pertinent positive or pertinent negative responses have been documented in the HPI. Past Medical History Past Medical History: Cancer, Diabetes Mellitus, Hypertension, Liver Disease, Myocardial Infarction (VT), Renal Disease Additional Past Medical History / Comment(s): Hepatocellular liver cancer with chemo immobilization-last time being 2017, ascities with paracentesis's may 2019, nonalcoholic liver cirrhosis, chronic pancytopenia, chronic elevated am monia levels, hepatic encephalopathy, chronic elevated LFTs, chronic abdominal pain, stomach ulcer, diverticular disease with ileostomy, IDDM type II, iron anemia, CKD stage III, nonsustained vtach, UTI, high ammonia levels Last Myocardial Infarction Date:: unk History of Any Multi-Drug Resistant Organisms: MRSA, VRE Date of last positivie culture/infection: 06/12/19- VRE; 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 Past Anesthesia/Blood Transfusion Reactions: No Reported Reaction Past Psychological History: Anxiety, Depression Smoking Status: Former smoker Past Alcohol Use History: None Reported Past Drug Use History: None Reported - Past Family History Mother History Unknown: Yes Family Medical History: Congestive Heart Failure (CHF) Additional Family Medical History / Comment(s): Mother is 94 yrs old. Father Family Medical History: Chest Pain / Angina Additional Family Medical History / Comment(s): Father is . <Shyann Rockwell M - Last Filed: 07/22/19 03:00> General Exam Limitations: altered mental status General appearance: alert, in no apparent distress, other (This is a well- developed, well-nourished elderly female patient in no acute distress. Vital signs upon presentation are temperature 98.6F, pulse 78, respirations 18, blood pressure 145/82, pulse ox 100% on room air.) Eye exam: Present: normal appearance, PERRL, EOMI. Absent: scleral icterus, conjunctival injection, periorbital swelling ENT exam: Present: normal exam, normal oropharynx, mucous membranes moist Respiratory exam: Present: normal lung sounds bilaterally. Absent: respiratory distress, wheezes, rales, rhonchi, stridor Cardiovascular Exam: Present: regular rate, normal rhythm, normal heart sounds. Absent: systolic murmur, diastolic murmur, rubs, gallop, clicks GI/Abdominal exam: Present: soft, normal bowel sounds, other (Colostomy right lower quadrant with watery green stool noted). Absent: distended, tenderness, guarding, rebound, rigid Neurological exam: Present: alert, oriented X3, CN II-XII intact Psychiatric exam: Present: normal affect, normal mood Skin exam: Present: warm, dry, intact, normal color. Absent: rash <Shyann Rockwell - Last Filed: 07/22/19 03:00> Course Vital Signs 07/22/19 07/22/19 07/22/19 00:22 01:00 01:30 Temperature 98.6 F Pulse Rate 78 70 72 Respiratory 18 16 16 Rate Blood Pressure 145/82 152/66 108/65 O2 Sat by Pulse 100 100 100 Oximetry 07/22/19 07/22/19 07/22/19 02:00 02:30 03:00 Temperature Pulse Rate 70 70 70 Respiratory 16 16 16 Rate Blood Pressure 127/64 127/66 117/64 O2 Sat by Pulse 100 100 100 Oximetry 07/22/19 03:30 Temperature Pulse Rate 71 Respiratory 16 Rate Blood Pressure 120/64 O2 Sat by Pulse 100 Oximetry Medical Decision Making - Lab Data Result diagrams: 07/22/19 00:52 07/22/19 00:52 - Radiology Data Radiology results: report reviewed, image reviewed <Shyann Rockwell - Last Filed: 07/22/19 03:00> - Lab Data Result diagrams: 07/22/19 00:52 07/22/19 00:52 <Chris Ballesteros - Last Filed: 07/23/19 07:41> - Medical Decision Making 73-year-old female patient presents the emergency department today for evaluation of weakness, altered mental status, and dysuria. Physical examination is unremarkable. She is neurologically intact with no focal deficits. Labs reviewed and did reveal mildly elevated troponin which seems to be chronic. Most likely from renal failure. Urinalysis did show evidence for infection. This will be sent for culture. Patient did have a previous positive urine culture for VRE. We will start daptomycin per sensitivity study. We admit to the hospital for further evaluation and monitoring. (Shyann Rockwell) I saw this patient in conjunction with the physician cable splicer assistant. I performed independent history and physical exam. Agree with case management. (Chris Ballesteros) - Lab Data Lab Results 07/22/19 07/22/19 07/22/19 Range/Units 00:52 00:52 00:52 WBC 4.8 (3.8-10.6) k/uL RBC 4.05 (3.80-5.40) m/uL Hgb 14.1 (11.4-16.0) gm/dL Hct 42.5 (34.0-46.0) % MCV 105.0 H (80.0-100.0) fL MCH 34.7 (25.0-35.0) pg MCHC 33.1 (31.0-37.0) g/dL RDW 16.0 H (11.5-15.5) % Plt Count 100 L (150-450) k/uL Neutrophils % 70 % Lymphocytes % 19 % Monocytes % 5 % Eosinophils % 4 % Basophils % 1 % Neutrophils # 3.4 (1.3-7.7) k/uL Lymphocytes # 0.9 L (1.0-4.8) k/uL Monocytes # 0.2 (0-1.0) k/uL Eosinophils # 0.2 (0-0.7) k/uL Basophils # 0.0 (0-0.2) k/uL Macrocytosis Moderate PT (9.0-12.0) sec INR (<1.2) APTT (22.0-30.0) sec Sodium 139 (137-145) mmol/L Potassium 4.4 (3.5-5.1) mmol/L Chloride 112 H (98-107) mmol/L Carbon Dioxide 17 L (22-30) mmol/L Anion Gap 10 mmol/L BUN 16 (7-17) mg/dL Creatinine 1.13 H (0.52-1.04) mg/dL Est GFR (CKD-EPI)AfAm 57 (>60 ml/min/1.73 sqM) Est GFR (CKD-EPI)NonAf 49 (>60 ml/min/1.73 sqM) Glucose 98 (74-99) mg/dL POC Glucose (mg/dL) (75-99) mg/dL POC Glu Account Manager Relief ID Calcium 9.0 (8.4-10.2) mg/dL Total Bilirubin 2.2 H (0.2-1.3) mg/dL AST 82 H (14-36) U/L ALT 40 (9-52) U/L Alkaline Phosphatase 315 H (38-126) U/L Ammonia 47 H (<30) umol/L Troponin I (0.000-0.034) ng/mL Total Protein 7.8 (6.3-8.2) g/dL Albumin 3.3 L (3.5-5.0) g/dL Urine Color Urine Appearance (Clear) Urine pH (5.0-8.0) Ur Specific Knox (1.001-1.035) Urine Protein (Negative) Urine Glucose (UA) (Negative) Urine Ketones (Negative) Urine Blood (Negative) Urine Nitrite (Negative) Urine Bilirubin (Negative) Urine Urobilinogen (<2.0) mg/dL Ur Leukocyte Esterase (Negative) Urine RBC (0-5) /hpf Urine WBC (0-5) /hpf Ur Squamous Epith Cells (0-4) /hpf Urine Bacteria (None) /hpf Hyaline Casts (0-2) /lpf Urine Mucus (None) /hpf Urine Opiates Screen (NotDetected) Ur Oxycodone Screen (NotDetected) Urine Methadone Screen (NotDetected) Ur Propoxyphene Screen (NotDetected) Ur Barbiturates Screen (NotDetected) U Tricyclic Antidepress (NotDetected) Ur Phencyclidine Scrn (NotDetected) Ur Amphetamines Screen (NotDetected) U Methamphetamines Scrn (NotDetected) U Benzodiazepines Scrn (NotDetected) Urine Cocaine Screen (NotDetected) U Marijuana (THC) Screen (NotDetected) 07/22/19 07/22/19 07/22/19 Range/Units 00:52 00:52 01:04 WBC (3.8-10.6) k/uL RBC (3.80-5.40) m/uL Hgb (11.4-16.0) gm/dL Hct (34.0-46.0) % MCV (80.0-100.0) fL MCH (25.0-35.0) pg MCHC (31.0-37.0) g/dL RDW (11.5-15.5) % Plt Count (150-450) k/uL Neutrophils % % Lymphocytes % % Monocytes % % Eosinophils % % Basophils % % Neutrophils # (1.3-7.7) k/uL Lymphocytes # (1.0-4.8) k/uL Monocytes # (0-1.0) k/uL Eosinophils # (0-0.7) k/uL Basophils # (0-0.2) k/uL Macrocytosis PT 12.7 H (9.0-12.0) sec INR 1.2 H (<1.2) APTT 20.6 L (22.0-30.0) sec Sodium (137-145) mmol/L Potassium (3.5-5.1) mmol/L Chloride (98-107) mmol/L Carbon Dioxide (22-30) mmol/L Anion Gap mmol/L BUN (7-17) mg/dL Creatinine (0.52-1.04) mg/dL Est GFR (CKD-EPI)AfAm (>60 ml/min/1.73 sqM) Est GFR (CKD-EPI)NonAf (>60 ml/min/1.73 sqM) Glucose (74-99) mg/dL POC Glucose (mg/dL) (75-99) mg/dL POC Glu Account Manager Relief ID Calcium (8.4-10.2) mg/dL Total Bilirubin (0.2-1.3) mg/dL AST (14-36) U/L ALT (9-52) U/L Alkaline Phosphatase (38-126) U/L Ammonia (<30) umol/L Troponin I 0.058 H* (0.000-0.034) ng/mL Total Protein (6.3-8.2) g/dL Albumin (3.5-5.0) g/dL Urine Color Yellow Urine Appearance Cloudy H (Clear) Urine pH 6.0 (5.0-8.0) Ur Specific Knox 1.022 (1.001-1.035) Urine Protein 1+ H (Negative) Urine Glucose (UA) Negative (Negative) Urine Ketones Trace H (Negative) Urine Blood Negative (Negative) Urine Nitrite Negative (Negative) Urine Bilirubin Negative (Negative) Urine Urobilinogen <2.0 (<2.0) mg/dL Ur Leukocyte Esterase Moderate H (Negative) Urine RBC 3 (0-5) /hpf Urine WBC 32 H (0-5) /hpf Ur Squamous Epith Cells 32 H (0-4) /hpf Urine Bacteria Rare H (None) /hpf Hyaline Casts 85 H (0-2) /lpf Urine Mucus Occasional H (None) /hpf Urine Opiates Screen Detected H (NotDetected) Ur Oxycodone Screen Not Detected (NotDetected) Urine Methadone Screen Not Detected (NotDetected) Ur Propoxyphene Screen Not Detected (NotDetected) Ur Barbiturates Screen Not Detected (NotDetected) U Tricyclic Antidepress Not Detected (NotDetected) Ur Phencyclidine Scrn Not Detected (NotDetected) Ur Amphetamines Screen Not Detected (NotDetected) U Methamphetamines Scrn Not Detected (NotDetected) U Benzodiazepines Scrn Not Detected (NotDetected) Urine Cocaine Screen Not Detected (NotDetected) U Marijuana (THC) Screen Not Detected (NotDetected) 07/22/19 Range/Units 01:17 WBC (3.8-10.6) k/uL RBC (3.80-5.40) m/uL Hgb (11.4-16.0) gm/dL Hct (34.0-46.0) % MCV (80.0-100.0) fL MCH (25.0-35.0) pg MCHC (31.0-37.0) g/dL RDW (11.5-15.5) % Plt Count (150-450) k/uL Neutrophils % % Lymphocytes % % Monocytes % % Eosinophils % % Basophils % % Neutrophils # (1.3-7.7) k/uL Lymphocytes # (1.0-4.8) k/uL Monocytes # (0-1.0) k/uL Eosinophils # (0-0.7) k/uL Basophils # (0-0.2) k/uL Macrocytosis PT (9.0-12.0) sec INR (<1.2) APTT (22.0-30.0) sec Sodium (137-145) mmol/L Potassium (3.5-5.1) mmol/L Chloride (98-107) mmol/L Carbon Dioxide (22-30) mmol/L Anion Gap mmol/L BUN (7-17) mg/dL Creatinine (0.52-1.04) mg/dL Est GFR (CKD-EPI)AfAm (>60 ml/min/1.73 sqM) Est GFR (CKD-EPI)NonAf (>60 ml/min/1.73 sqM) Glucose (74-99) mg/dL POC Glucose (mg/dL) 84 (75-99) mg/dL POC Glu Account Manager Relief ID Fetterly, Sheri Calcium (8.4-10.2) mg/dL Total Bilirubin (0.2-1.3) mg/dL AST (14-36) U/L ALT (9-52) U/L Alkaline Phosphatase (38-126) U/L Ammonia (<30) umol/L Troponin I (0.000-0.034) ng/mL Total Protein (6.3-8.2) g/dL Albumin (3.5-5.0) g/dL Urine Color Urine Appearance (Clear) Urine pH (5.0-8.0) Ur Specific Knox (1.001-1.035) Urine Protein (Negative) Urine Glucose (UA) (Negative) Urine Ketones (Negative) Urine Blood (Negative) Urine Nitrite (Negative) Urine Bilirubin (Negative) Urine Urobilinogen (<2.0) mg/dL Ur Leukocyte Esterase (Negative) Urine RBC (0-5) /hpf Urine WBC (0-5) /hpf Ur Squamous Epith Cells (0-4) /hpf Urine Bacteria (None) /hpf Hyaline Casts (0-2) /lpf Urine Mucus (None) /hpf Urine Opiates Screen (NotDetected) Ur Oxycodone Screen (NotDetected) Urine Methadone Screen (NotDetected) Ur Propoxyphene Screen (NotDetected) Ur Barbiturates Screen (NotDetected) U Tricyclic Antidepress (NotDetected) Ur Phencyclidine Scrn (NotDetected) Ur Amphetamines Screen (NotDetected) U Methamphetamines Scrn (NotDetected) U Benzodiazepines Scrn (NotDetected) Urine Cocaine Screen (NotDetected) U Marijuana (THC) Screen (NotDetected) - Radiology Data Two-view x-ray of the chest is obtained. Report was reviewed in its entirety. Impression by Dr. Frederick. (Shyann Rockwell) Disposition Decision to Admit Reason: Admit from EC Decision Date: 07/22/19 Decision Time: 03:00 <Shyann Rockwell - Last Filed: 07/22/19 03:00> <Chris Ballesteros - Last Filed: 07/23/19 07:41> Clinical Impression: UTI (urinary tract infection), Altered mental status Disposition: ADMITTED IP TO THIS [facility] Condition: Serious
[2019-07-22 01:16] LABS: Basophils % (A) 1 %; Eosinophils # (A) 0.2 k/uL (0-0.7); Eosinophils % (A) 4 %; HCT 42.5 % (34.0-46.0); HGB 14.1 gm/dL (11.4-16.0); Lymphocytes # (A) 0.9 k/uL (1.0-4.8); Lymphocytes % (A) 19 %; MCH 34.7 pg (25.0-35.0); MCHC 33.1 g/dL (31.0-37.0); Macrocytosis Moderate; Mean Platelet Volume 8.7; Monocytes # (A) 0.2 k/uL (0-1.0); Monocytes % (A) 5 %; Neutrophils # (A) 3.4 k/uL (1.3-7.7); Neutrophils % (A) 70 %; Platelet Count 100 k/uL (150-450); RBC 4.05 m/uL (3.80-5.40); WBC 4.8 k/uL (3.8-10.6)
[2019-07-22 01:19] LABS: Appearance,Urine Cloudy (Clear); Bacteria,Urine Rare /hpf; Bilirubin,Urine Negative (Negative); Blood,Urine Negative (Negative); Color,Urine Yellow; Glucose,Urine (UA) Negative (Negative); Hyaline Casts,Urine 85 /lpf (0-2); Ketones,Urine Trace (Negative); Leukocyte Esterase,Urine Moderate (Negative); Mucus,Urine Occasional /hpf; Nitrite,Urine Negative (Negative); Protein,Urine 1+ (Negative); RBC,Urine 3 /hpf (0-5); Specific Gravity,Urine 1.022 (1.001-1.035); Squamous Epithelial Cell,Urine 32 /hpf (0-4); Urobilinogen,Urine <2.0 mg/dL (<2.0); WBC,Urine 32 /hpf (0-5)
[2019-07-22 01:19] LABS: Glucose,Whole Blood 84 mg/dL (75-99)
[2019-07-22 01:24] LABS: Albumin 3.3 g/dL (3.5-5.0); Total Bilirubin 2.2 mg/dL (0.2-1.3); Total Protein 7.8 g/dL (6.3-8.2)
[2019-07-22 01:30] LABS: Amphetamine Screen,Urine Not Detected (NotDetected); Barbiturate Screen,Urine Not Detected (NotDetected); Benzodiazepines Screen,Urine Not Detected (NotDetected); Cocaine Screen,Urine Not Detected (NotDetected); Methadone Screen, Urine Not Detected (NotDetected); Opiate Screen,Urine Detected (NotDetected); Oxycodone Screen, Urine Not Detected (NotDetected); Phencyclidine Screen,Urine Not Detected (NotDetected); Tricyclic Antidepressant,Urine Not Detected (NotDetected); Urn Cannabinoid Scrn Not Detected (NotDetected)
[2019-07-22 01:33] LABS: INR 1.2 (<1.2); Prothrombin Time 12.7 sec (9.0-12.0)
[2019-07-22 01:35] LABS: Partial Thromboplastin Time 20.6 sec (22.0-30.0)
[2019-07-22 01:47] LABS: Potassium 4.4 mmol/L (3.5-5.1)
--- NOTE | 2019-07-22 02:07 | XR ---
EXAM: XR Chest, 2 Views CLINICAL HISTORY: Altered mental status. TECHNIQUE: Frontal and lateral views of the chest. COMPARISON: 06/21/2019. FINDINGS: Lungs: No consolidative change. Pleural space: No pneumothorax. Heart: The heart is top normal in size. Mediastinum: Unremarkable. Bones/joints: Unremarkable. Vasculature: Atherosclerotic disease of the aortic knob. Other findings: Minimal blunting of the left CP angle, similar to the previous study. IMPRESSION: No significant change from the previous study. No consolidative change.
[2019-07-22] MEDS ORDERED: NALOXONE 0.4 MG/ML 1 ML VIAL IV PRN (02:58)
[2019-07-22] MEDS ORDERED: DAPTOmycin 500 MG in SODIUM CHLORIDE 0.9% 50 ML IVPB ONE (03:00)
[2019-07-22] MEDS ORDERED: DAPTOmycin 500 MG in SODIUM CHLORIDE 0.9% 50 ML IVPB SCH (03:00)
[2019-07-22 07:10] LABS: Glucose,Whole Blood 93 mg/dL (75-99)
[2019-07-22] MEDS ORDERED: DICYCLOMINE 10 MG CAP PO PRN (10:52)
[2019-07-22] MEDS ORDERED: clonazePAM 0.5 MG TAB PO PRN (10:52)
[2019-07-22 11:45] LABS: Glucose,Whole Blood 212 mg/dL (75-99)
[2019-07-22] MEDS: METOPROLOL TARTRATE 12.5 MG TAB PO SCH (11:57)
[2019-07-22] MEDS: INSULIN ASPART (NovoLOG) 100 UNIT/ML VIAL SQ SCH ×3 (11:57→21:37)
[2019-07-22] MEDS: SUCRALFATE 1 GM TAB PO SCH ×3 (11:57→21:25)
[2019-07-22] MEDS: MORPHINE SULFATE ER 15 MG TABLET PO SCH ×2 (11:57→21:26)
[2019-07-22 12:36] VITALS: BMI 33.9
[2019-07-22] MEDS: RIFAXIMIN 550 MG TABLET PO SCH ×2 (13:44→21:26)
--- NOTE | 2019-07-22 13:48 | P.HPIM ---
History of Present Illness H&P Date: 07/22/19 Charlene valladares is a 73-year-old female who presented to [facility] emergency room with a chief complaint of confusion and altered mental status she was also having episodes of vomiting, she was evaluated in the emergency room her ammonia level was elevated at 47, she also had evidence of urinary tract infection, she was admitted to medical floor for further evaluation and treatment, chest x-ray done in the emergency room did not reveal any acute abnormality, patient had multiple similar admissions in the last 6 months she had computed tomography scan of the brain without contrast 4 times in the last 6 months and no acute abnormality was evident on any of the CT scans. Computed tomography scan of the brain was not done during this admission. Patient has a known history of liver cancer she also has known history of hypertension, diabetes mellitus, coronary artery disease with myocardial infarction, chronic kidney disease, history of nonsustained V. tach, liver cirrhosis with chronic elevation in ammonia level with episodes of mental status changes. Past Medical History Past Medical History: Cancer, Diabetes Mellitus, Hypertension, Liver Disease, Myocardial Infarction (MA), Renal Disease Additional Past Medical History / Comment(s): Hepatocellular liver cancer with chemo immobilization-last time being 2017, ascities with paracentesis's may 2019, nonalcoholic liver cirrhosis, chronic pancytopenia, chronic elevated ammonia levels, hepatic encephalopathy, chronic elevated LFTs, chronic abdominal pain, stomach ulcer, diverticular disease with ileostomy, IDDM type II, iron anemia, CKD stage III, nonsustained vtach, UTI, high ammonia levels Last Myocardial Infarction Date:: unk History of Any Multi-Drug Resistant Organisms: MRSA, VRE Date of last positivie culture/infection: 06/12/19- VRE; 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 Past Anesthesia/Blood Transfusion Reactions: No Reported Reaction Past Psychological History: Anxiety, Depression Additional Psychological History / Comment(s): Reformed smoker. . Retired. No experience. No animal exposures Smoking Status: Former smoker Past Alcohol Use History: None Reported Additional Past Alcohol Use History / Comment(s): started smoking 1962 and quit 1965 Past Drug Use History: None Reported - Past Family History Mother History Unknown: Yes Family Medical History: Congestive Heart Failure (CHF) Additional Family Medical History / Comment(s): Mother is 94 yrs old. Father Family Medical History: Chest Pain / Angina Additional Family Medical History / Comment(s): Father is . Medications and Allergies Home Medications Medication Instructions Recorded Confirmed Type Omeprazole [PriLOSEC] 20 mg PO BID 10/23/18 07/22/19 History Sucralfate [Carafate] 1 gm PO QID 10/23/18 07/22/19 History Insulin Regular, Human [NovoLIN R] 10 unit SQ AC-TID 10/24/18 07/22/19 History Cholecalciferol [Vitamin D3 (25 4,000 unit PO DAILY 01/16/19 07/22/19 History Mcg = 1000 Iu)] Ferrous Sulfate [Iron (65 MG 325 mg PO BID 01/31/19 07/22/19 History Elemental)] Insulin NPH [humuLIN N] 18 unit SQ BID vial 02/06/19 07/22/19 Rx Morphine Sulfate [Ms Contin] 15 mg PO BID 05/15/19 07/22/19 History Dicyclomine [Bentyl] 10 mg PO TID PRN 06/12/19 07/22/19 History Metoprolol Tartrate [Lopressor] 6.25 mg PO DAILY 06/12/19 07/22/19 History Ondansetron Odt [Zofran ODT] 8 mg SL DAILY PRN 06/12/19 07/22/19 History buPROPion HCL [Wellbutrin SR] 150 mg PO BID 06/12/19 07/22/19 History clonazePAM [KlonoPIN] 0.5 mg PO Q8HR PRN 06/12/19 07/22/19 History Lactulose [Cephulac] 30 gm PO TID 07/22/19 07/22/19 History Allergies Allergy/AdvReac Type Severity Reaction Status Date / Time amlodipine Allergy Rash/Hives Verified 07/22/19 08:08 oxycodone Allergy Rash/Hives Verified 07/22/19 08:08 Penicillins Allergy Rash/Hives Verified 07/22/19 08:08 hydromorphone [From Dilaudid] AdvReac Mild tactile Verified 07/22/19 08:08 disturbance GREG Inhibitors AdvReac Cough Verified 07/22/19 08:08 sodium dodecyclbenzene Allergy Rash/Hives Uncoded 07/22/19 08:08 sulfonate Physical Exam Vitals: Vital Signs Temp Pulse Pulse Resp BP BP Pulse Ox 07/22/19 05:34 97.8 F 71 16 107/61 100 07/22/19 03:30 71 16 120/64 100 07/22/19 03:00 70 16 117/64 100 07/22/19 02:30 70 16 127/66 100 07/22/19 02:00 70 16 127/64 100 07/22/19 01:30 72 16 108/65 100 07/22/19 01:00 70 16 152/66 100 07/22/19 00:22 98.6 F 78 18 145/82 100 Intake and Output 07/21/19 07/22/19 07/22/19 22:59 06:59 14:59 Other: Voiding Method Toilet Toilet # Voids 1 2 Weight 92.533 kg 92.533 kg In general patient is alert slightly confused in no apparent distress HEENT head normocephalic and atraumatic Neck is supple no JVD no goiter no lymphadenopathy Chest exam reveals a few scattered rhonchi no wheezing Cardiac exam reveals regular heart sounds S1 and S2 no gallops no murmurs Abdomen is soft with mild diffuse tenderness no organomegaly no palpable masses was normal bowel sounds Extremity exam reveals no edema no cyanosis or clubbing Neurological examination reveals mental status changes was mild confusion and difficulty finding words, otherwise no acute focal neurological deficit Results CBC & Chem 7: 07/22/19 00:52 07/22/19 00:52 Labs: Abnormal Lab Results - Last 24 Hours (Table) 07/22/19 07/22/19 07/22/19 Range/Units 00:52 00:52 00:52 MCV 105.0 H (80.0-100.0) fL RDW 16.0 H (11.5-15.5) % Plt Count 100 L (150-450) k/uL Lymphocytes # 0.9 L (1.0-4.8) k/uL PT (9.0-12.0) sec INR (<1.2) APTT (22.0-30.0) sec Chloride 112 H (98-107) mmol/L Carbon Dioxide 17 L (22-30) mmol/L Creatinine 1.13 H (0.52-1.04) mg/dL POC Glucose (mg/dL) (75-99) mg/dL Total Bilirubin 2.2 H (0.2-1.3) mg/dL AST 82 H (14-36) U/L Alkaline Phosphatase 315 H (38-126) U/L Ammonia 47 H (<30) umol/L Troponin I (0.000-0.034) ng/mL Albumin 3.3 L (3.5-5.0) g/dL Urine Appearance (Clear) Urine Protein (Negative) Urine Ketones (Negative) Ur Leukocyte Esterase (Negative) Urine WBC (0-5) /hpf Ur Squamous Epith Cells (0-4) /hpf Urine Bacteria (None) /hpf Hyaline Casts (0-2) /lpf Urine Mucus (None) /hpf Urine Opiates Screen (NotDetected) 07/22/19 07/22/19 07/22/19 Range/Units 00:52 00:52 01:04 MCV (80.0-100.0) fL RDW (11.5-15.5) % Plt Count (150-450) k/uL Lymphocytes # (1.0-4.8) k/uL PT 12.7 H (9.0-12.0) sec INR 1.2 H (<1.2) APTT 20.6 L (22.0-30.0) sec Chloride (98-107) mmol/L Carbon Dioxide (22-30) mmol/L Creatinine (0.52-1.04) mg/dL POC Glucose (mg/dL) (75-99) mg/dL Total Bilirubin (0.2-1.3) mg/dL AST (14-36) U/L Alkaline Phosphatase (38-126) U/L Ammonia (<30) umol/L Troponin I 0.058 H* (0.000-0.034) ng/mL Albumin (3.5-5.0) g/dL Urine Appearance Cloudy H (Clear) Urine Protein 1+ H (Negative) Urine Ketones Trace H (Negative) Ur Leukocyte Esterase Moderate H (Negative) Urine WBC 32 H (0-5) /hpf Ur Squamous Epith Cells 32 H (0-4) /hpf Urine Bacteria Rare H (None) /hpf Hyaline Casts 85 H (0-2) /lpf Urine Mucus Occasional H (None) /hpf Urine Opiates Screen Detected H (NotDetected) 07/22/19 07/22/19 Range/Units 08:18 11:41 MCV (80.0-100.0) fL RDW (11.5-15.5) % Plt Count (150-450) k/uL Lymphocytes # (1.0-4.8) k/uL PT (9.0-12.0) sec INR (<1.2) APTT (22.0-30.0) sec Chloride (98-107) mmol/L Carbon Dioxide (22-30) mmol/L Creatinine (0.52-1.04) mg/dL POC Glucose (mg/dL) 212 H (75-99) mg/dL Total Bilirubin (0.2-1.3) mg/dL AST (14-36) U/L Alkaline Phosphatase (38-126) U/L Ammonia (<30) umol/L Troponin I 0.051 H* (0.000-0.034) ng/mL Albumin (3.5-5.0) g/dL Urine Appearance (Clear) Urine Protein (Negative) Urine Ketones (Negative) Ur Leukocyte Esterase (Negative) Urine WBC (0-5) /hpf Ur Squamous Epith Cells (0-4) /hpf Urine Bacteria (None) /hpf Hyaline Casts (0-2) /lpf Urine Mucus (None) /hpf Urine Opiates Screen (NotDetected) Microbiology - Last 24 Hours (Table) 07/22/19 01:04 Urine Culture - Preliminary Urine,Voided Thrombosis Risk Factor Assmnt - Choose All That Apply Each Factor Represents 1 point: Obesity (BMI >25) Other Risk Factors: Yes Each Risk Factor Represents 2 Points: Age 61-74 years, Malignancy Other congenital or acquired thrombophilia - If yes, enter type in comment: No Thrombosis Risk Factor Assessment Total Risk Factor Score: 5 Thrombosis Risk Factor Assessment Level: High Risk Assessment and Plan Plan: #1 acute mental status changes #2 elevated ammonia level at 47 #3 mild elevation in troponin level #4 nausea and vomiting #5 known history of nonalcoholic liver cirrhosis #6 history of hepatocellular carcinoma #7 history of chronic kidney disease stage III #8 history of diverticulitis with ileostomy placement #9 history of insulin-dependent diabetes mellitus #10 history of depression At this time patient was started on IV antibiotic for management of urinary tract infection, she was started on daptomycin due to previous history of MRSA infections She was also started on lactulose and Xifaxan was added to her regimen Gastroenterology consultation and infectious disease consultation were requested No neurology services are available this weekend. Will monitor closely if patient mental status is not improved by Wednesday Will consult neurology If there is any evidence of deterioration in mental status was transferred to a hospital where neurology is available
[2019-07-22] MEDS: LACTULOSE 20 GM/30 ML CUP PO SCH ×2 (15:03→21:25)
[2019-07-22 16:35] LABS: Glucose,Whole Blood 154 mg/dL (75-99)
[2019-07-22 21:14] LABS: Glucose,Whole Blood 215 mg/dL (75-99)
[2019-07-22] MEDS: FERROUS SULFATE 325 MG TAB PO SCH (21:25)
[2019-07-22] MEDS: PANTOPRAZOLE 40 MG TABLET PO SCH (21:26)
[2019-07-22] MEDS: buPROPion SR 150 MG TABLET.ER PO SCH (21:27)
[2019-07-23] MEDS ORDERED: DAPTOmycin 500 MG in SODIUM CHLORIDE 0.9% 50 ML IVPB SCH (04:00)
[2019-07-23 07:17] LABS: Glucose,Whole Blood 138 mg/dL (75-99)
[2019-07-23] MEDS: SUCRALFATE 1 GM TAB PO SCH ×4 (07:23→20:06)
[2019-07-23] MEDS: LACTULOSE 20 GM/30 ML CUP PO SCH ×3 (07:23→20:02)
[2019-07-23] MEDS: RIFAXIMIN 550 MG TABLET PO SCH ×2 (07:23→20:06)
[2019-07-23] MEDS: METOPROLOL TARTRATE 12.5 MG TAB PO SCH (07:23)
[2019-07-23] MEDS: buPROPion SR 150 MG TABLET.ER PO SCH ×2 (07:23→20:06)
[2019-07-23] MEDS: CHOLECALCIFEROL 1,000 UNIT TAB PO SCH (07:23)
[2019-07-23] MEDS: FERROUS SULFATE 325 MG TAB PO SCH ×2 (07:23→20:06)
[2019-07-23] MEDS: INSULIN ASPART (NovoLOG) 100 UNIT/ML VIAL SQ SCH ×4 (07:24→20:27)
[2019-07-23] MEDS: MORPHINE SULFATE ER 15 MG TABLET PO SCH ×2 (07:30→20:05)
[2019-07-23 11:43] LABS: Glucose,Whole Blood 144 mg/dL (75-99)
--- NOTE | 2019-07-23 14:00 | P.PN ---
Subjective Progress Note Date: 07/23/19 Charlene valladares is a 73-year-old female who presented to [facility] emergency room with a chief complaint of confusion and altered mental status she was also having episodes of vomiting, she was evaluated in the emergency room her ammonia level was elevated at 47, she also had evidence of urinary tract infection, she was admitted to medical floor for further evaluation and treatment, chest x-ray done in the emergency room did not reveal any acute abnormality, patient had multiple similar admissions in the last 6 months she had computed tomography scan of the brain without contrast 4 times in the last 6 months and no acute abnormality was evident on any of the CT scans. Computed tomography scan of the brain was not done during this admission. Patient has a known history of liver cancer she also has known history of hypertension, diabetes mellitus, coronary artery disease with myocardial infarction, chronic kidney disease, history of nonsustained V. tach, liver cirrhosis with chronic elevation in ammonia level with episodes of mental status changes. On 07/23/2019 patient was seen and examined on the medical floor she is more alert and oriented she is complaining of more abdominal pain mostly in the right lower quadrants around the ileostomy area she is still complaining of feeling weak and tired otherwise she denies any complaints there is no fever or chills no headache or dizziness no chest pain no shortness of breath no cough no nausea or vomiting no diarrhea no burning was urination no frequency or urgency and no hematuria Objective - Vital Signs Vital signs: Vital Signs Temp 97.9 F 07/23/19 07:00 Pulse 68 07/23/19 07:00 Resp 18 07/23/19 07:00 BP 106/64 07/23/19 07:00 Pulse Ox 99 07/23/19 07:00 Intake & Output 07/22/19 07/23/19 07/23/19 18:59 06:59 18:59 Output Total 600 600 Balance -600 -600 Weight 92.533 kg Output: Stool 600 600 Other: Voiding Method Toilet Toilet Toilet # Voids 2 1 3 # Bowel Movements 0 - Exam In general patient is alert slightly confused in no apparent distress HEENT head normocephalic and atraumatic Neck is supple no JVD no goiter no lymphadenopathy Chest exam reveals a few scattered rhonchi no wheezing Cardiac exam reveals regular heart sounds S1 and S2 no gallops no murmurs Abdomen is soft with mild diffuse tenderness, patient is also having more te nderness in the right lower quadrant around the ileostomy area no organomegaly no palpable masses was normal bowel sounds Extremity exam reveals no edema no cyanosis or clubbing Neurological examination reveals mental status changes was mild confusion and difficulty finding words, otherwise no acute focal neurological deficit - Labs CBC & Chem 7: 07/22/19 00:52 07/22/19 00:52 Labs: Abnormal Lab Results - Last 24 Hours (Table) 07/22/19 07/22/19 07/22/19 Range/Units 12:49 16:28 21:12 POC Glucose (mg/dL) 154 H 215 H (75-99) mg/dL Troponin I 0.053 H* (0.000-0.034) ng/mL 07/23/19 07/23/19 Range/Units 07:13 11:41 POC Glucose (mg/dL) 138 H 144 H (75-99) mg/dL Troponin I (0.000-0.034) ng/mL Microbiology - Last 24 Hours (Table) 07/22/19 01:04 Urine Culture - Preliminary Urine,Voided Assessment and Plan Plan: #1 acute mental status changes #2 elevated ammonia level at 47 #3 mild elevation in troponin level #4 nausea and vomiting #5 known history of nonalcoholic liver cirrhosis #6 history of hepatocellular carcinoma #7 history of chronic kidney disease stage III #8 history of diverticulitis with ileostomy placement #9 history of insulin-dependent diabetes mellitus #10 history of depression At this time patient was started on IV antibiotic for management of urinary tract infection, she was started on daptomycin due to previous history of MRSA infections She was also started on lactulose and Xifaxan was added to her regimen Gastroenterology consultation and infectious disease consultation were requested No neurology services are available this weekend. Will monitor closely if patient mental status is not improved by Wednesday Will consult neurology If there is any evidence of deterioration in mental status was transferred to a hospital where neurology is available
--- NOTE | 2019-07-23 15:02 | XR ---
EXAMINATION TYPE: XR abdomen 1V DATE OF EXAM: 07/23/2019 COMPARISON: 05/24/2019 HISTORY: Abdominal pain TECHNIQUE: 2 views supine FINDINGS: There is no sign of intestinal obstruction or pneumoperitoneum. Fecal pattern is normal. Th ere are no pathologic calcifications over the kidneys. There is spurring of the acetabula. IMPRESSION: Nonacute abdomen. No change.
[2019-07-23 16:31] LABS: Glucose,Whole Blood 226 mg/dL (75-99)
[2019-07-23] MEDS: PANTOPRAZOLE 40 MG TABLET PO SCH (20:06)
[2019-07-23 20:28] LABS: Glucose,Whole Blood 141 mg/dL (75-99)
--- NOTE | 2019-07-23 21:18 | P.CONS ---
History of Present Illness - Reason for Consult Consult date: 07/23/19 - Chief Complaint Altered mental status - History of Present Illness 73-year-old woman presents to the emergency center because of worsening mental status. The patient's son in the Emergency Ctr. related the patient's behavior began to deteriorate. She started to bizarre things and couldn't remember things that she was doing. He became concerned and constantly the patient was brought to the emergency center for further evaluation. She is in no history of hepatocellular carcinoma, she has difficulties with hepatic function and often has an elevated ammonia. The patient does have a history of urinary tract colonization with VRE but has had some urinary infections also in the past inclu ding E. coli infections. She at this point in time apparently is improved with coming to Hospital having hydration and she's been treated with refix seen in lactulose and her ammonia level has improved a bit. She does complain of some generalized abdominal pain. She relates that she often has urinary urgency that comes and goes. She does take diuretic therapy. She is still somewhat confused and is not a good historian. Review of Systems ROS unobtainable: due to mental status Past Medical History Past Medical History: Cancer, Diabetes Mellitus, Hypertension, Liver Disease, Myocardial Infarction ([place]), Renal Disease Additional Past Medical History / Comment(s): Hepatocellular liver cancer with chemo immobilization-last time being 2017, ascities with paracentesis's may 2019, nonalcoholic liver cirrhosis, chronic pancytopenia, chronic elevated ammonia levels, hepatic encephalopathy, chronic elevated LFTs, chronic abdominal pain, stomach ulcer, diverticular disease with ileostomy, IDDM type II, iron anemia, CKD stage III, nonsustained vtach, UTI, high ammonia levels Last Myocardial Infarction Date:: unk History of Any Multi-Drug Resistant Organisms: MRSA, VRE Year Discovered:: 06/12/19- VRE; 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 Past Anesthesia/Blood Transfusion Reactions: No Reported Reaction Past Psychological History: Anxiety, Depression Additional Psychological History / Comment(s): Reformed smoker. . Retired. No experience. No animal exposures Smoking Status: Former smoker Past Alcohol Use History: None Reported Additional Past Alcohol Use History / Comment(s): started smoking 1962 and quit 1966 Past Drug Use History: None Reported - Past Family History Mother History Unknown: Yes Family Medical History: Congestive Heart Failure (CHF) Additional Family Medical History / Comment(s): Mother is 94 yrs old. Father Family Medical History: Chest Pain / Angina Additional Family Medical History / Comment(s): Father is . Medications and Allergies Home Medications and Allergies Comment(s): Current Medications Bupropion HCl (Wellbutrin Sr) 150 mg PO BID [facility] Last Admin: 07/23/19 20:06 Dose: 150 mg Documented by: Cholecalciferol (Vitamin D3 (25 Mcg = 1000 Iu)) 4,000 unit PO DAILY [facility] Last Admin: 07/23/19 07:23 Dose: 4,000 unit Documented by: Clonazepam (Klonopin) 0.5 mg PO Q8HR PRN PRN Reason: Anxiety Dicyclomine HCl (Bentyl) 10 mg PO TID PRN PRN Reason: GI Upset Ferrous Sulfate (Feosol) 325 mg PO BID [facility] Last Admin: 07/23/19 20:06 Dose: 325 mg Documented by: Insulin Aspart (Novolog) 0 unit SQ [facility]; Protocol Last Admin: 07/23/19 20:27 Dose: 1 unit Documented by: Lactulose (Cephulac) 30 gm PO TID [facility] Last Admin: 07/23/19 20:02 Dose: 30 gm Documented by: Metoprolol Tartrate (Lopressor) 6.25 mg PO DAILY [facility] Last Admin: 07/23/19 07:23 Dose: 6.25 mg Documented by: Morphine Sulfate (Ms Contin) 15 mg PO BID [facility] Last Admin: 07/23/19 20:05 Dose: 15 mg Documented by: Naloxone HCl (Narcan) 0.2 mg IV Q2M PRN PRN Reason: Opioid Reversal Pantoprazole Sodium (Protonix) 40 mg PO HS [facility] Last Admin: 07/23/19 20:06 Dose: 40 mg Documented by: Rifaximin (Xifaxan) 550 mg PO BID [facility] Stop: 08/21/19 12:46 Last Admin: 07/23/19 20:06 Dose: 550 mg Documented by: Sucralfate (Carafate) 1 gm PO ACHS [facility] Last Admin: 07/23/19 20:06 Dose: 1 gm Documented by: Home Medications Medication Instructions Recorded Confirmed Type Omeprazole [PriLOSEC] 20 mg PO BID 10/23/18 07/22/19 History Sucralfate [Carafate] 1 gm PO QID 10/23/18 07/22/19 History Insulin Regular, Human [NovoLIN R] 10 unit SQ AC-TID 10/24/18 07/22/19 History Cholecalciferol [Vitamin D3 (25 4,000 unit PO DAILY 01/16/19 07/22/19 History Mcg = 1000 Iu)] Ferrous Sulfate [Iron (65 MG 325 mg PO BID 01/31/19 07/22/19 History Elemental)] Insulin NPH [humuLIN N] 18 unit SQ BID vial 02/06/19 07/22/19 Rx Morphine Sulfate [Ms Contin] 15 mg PO BID 05/15/19 07/22/19 History Dicyclomine [Bentyl] 10 mg PO TID PRN 06/12/19 07/22/19 History Metoprolol Tartrate [Lopressor] 6.25 mg PO DAILY 06/12/19 07/22/19 History Ondansetron Odt [Zofran ODT] 8 mg SL DAILY PRN 06/12/19 07/22/19 History buPROPion HCL [Wellbutrin SR] 150 mg PO BID 06/12/19 07/22/19 History clonazePAM [KlonoPIN] 0.5 mg PO Q8HR PRN 06/12/19 07/22/19 History Lactulose [Cephulac] 30 gm PO TID 07/22/19 07/22/19 History Allergies Allergy/AdvReac Type Severity Reaction Status Date / Time amlodipine Allergy Rash/Hives Verified 07/22/19 08:08 oxycodone Allergy Rash/Hives Verified 07/22/19 08:08 Penicillins Allergy Rash/Hives Verified 07/22/19 08:08 hydromorphone [From Dilaudid] AdvReac Mild tactile Verified 07/22/19 08:08 disturbance GREG Inhibitors AdvReac Cough Verified 07/22/19 08:08 sodium dodecyclbenzene Allergy Rash/Hives Uncoded 07/22/19 08:08 sulfonate Physical Exam Vitals: Vital Signs Temp Pulse Resp BP Pulse Ox 07/23/19 14:14 98.3 F 62 20 126/73 100 07/23/19 07:00 97.9 F 68 18 106/64 99 07/23/19 00:00 20 07/22/19 23:00 98.8 F 68 16 118/62 99 Intake and Output 07/23/19 07/23/19 07/23/19 06:59 14:59 22:59 Output Total 600 Balance -600 Output: Stool 600 Other: Voiding Method Toilet Toilet Toilet # Voids 1 3 # Bowel Movements 0 73-year-old woman who is resting somewhat quietly at this this time HEENT: Anicteric conjunctiva are pink and moist nasal mucosa grossly intact without significant lesions, there is no thrush. Poor dentition Neck: The neck is supple without significant lymphadenopathy or thyromegaly. Lungs: Symmetrical air entry few basilar crackles no bronchial sounds Heart: Irregular with an audible S1 and S2 soft S4 no severe murmur click or rub PMI was nondisplaced Abdomen: Obese, Positive bowel sounds soft , is somewhat generalized lower quadrant abdominal tenderness on exam. The patient does have the colostomy in place that seems to be functioning well, she does have a peristomal hernia which is not excessive at this time. There is no palpable hepatosplenomegaly although she complains of some tenderness in the right upper quadrant on exam. There is no palpable mass there was no guarding or rebound there was no suprapubic tenderness. Extremities: The upper extremities have excellent pulses they are symmetric, no significant petechiae or telangiectasia. No splinter hemorrhages were noted. Lower extremities have 2+ pitting edema but no open ulcerations are seen Neuro: The patient was arousable somewhat interactive, poor historian but was able to move upper and lower extremities throughout the exam Results CBC & Chem 7: 07/22/19 00:52 07/22/19 00:52 Labs: Abnormal Lab Results - Last 24 Hours (Table) 07/22/19 07/23/19 07/23/19 Range/Units 21:12 07:13 11:41 POC Glucose (mg/dL) 215 H 138 H 144 H (75-99) mg/dL 07/23/19 07/23/19 Range/Units 16:19 20:23 POC Glucose (mg/dL) 226 H 141 H (75-99) mg/dL Microbiology - Last 24 Hours (Table) 07/22/19 01:04 Urine Culture - Preliminary Urine,Voided Group D Enterococcus Laboratory Results WBC 4.8 k/uL (3.8-10.6) 07/22/19 00:52 RBC 4.05 m/uL (3.80-5.40) 07/22/19 00:52 Hgb 14.1 gm/dL (11.4-16.0) 07/22/19 00:52 Hct 42.5 % (34.0-46.0) 07/22/19 00:52 MCV 105.0 fL (80.0-100.0) H 07/22/19 00:52 MCH 34.7 pg (25.0-35.0) 07/22/19 00:52 MCHC 33.1 g/dL (31.0-37.0) 07/22/19 00:52 RDW 16.0 % (11.5-15.5) H 07/22/19 00:52 Plt Count 100 k/uL (150-450) L 07/22/19 00:52 Neutrophils % 70 % 07/22/19 00:52 Lymphocytes % 19 % 07/22/19 00:52 Monocytes % 5 % 07/22/19 00:52 Eosinophils % 4 % 07/22/19 00:52 Basophils % 1 % 07/22/19 00:52 Neutrophils # 3.4 k/uL (1.3-7.7) 07/22/19 00:52 Lymphocytes # 0.9 k/uL (1.0-4.8) L 07/22/19 00:52 Monocytes # 0.2 k/uL (0-1.0) 07/22/19 00:52 Eosinophils # 0.2 k/uL (0-0.7) 07/22/19 00:52 Basophils # 0.0 k/uL (0-0.2) 07/22/19 00:52 Macrocytosis Moderate 07/22/19 00:52 PT 12.7 sec (9.0-12.0) H 07/22/19 00:52 INR 1.2 (<1.2) H 07/22/19 00:52 APTT 20.6 sec (22.0-30.0) L 07/22/19 00:52 Sodium 139 mmol/L (137-145) 07/22/19 00:52 Potassium 4.4 mmol/L (3.5-5.1) 07/22/19 00:52 Chloride 112 mmol/L (98-107) H 07/22/19 00:52 Carbon Dioxide 17 mmol/L (22-30) L 07/22/19 00:52 Anion Gap 10 mmol/L 07/22/19 00:52 BUN 16 mg/dL (7-17) 07/22/19 00:52 Creatinine 1.13 mg/dL (0.52-1.04) H 07/22/19 00:52 Est GFR (CKD-EPI)AfAm 57 (>60 ml/min/1.73 sqM) 07/22/19 00:52 Est GFR (CKD-EPI)NonAf 49 (>60 ml/min/1.73 sqM) 07/22/19 00:52 Glucose 98 mg/dL (74-99) 07/22/19 00:52 POC Glucose (mg/dL) 141 mg/dL (75-99) H 07/23/19 20:23 POC Glu [employer] Mariposa Palma 07/23/19 20:23 Calcium 9.0 mg/dL (8.4-10.2) 07/22/19 00:52 Total Bilirubin 2.2 mg/dL (0.2-1.3) H 07/22/19 00:52 AST 82 U/L (14-36) H 07/22/19 00:52 ALT 40 U/L (9-52) 07/22/19 00:52 Alkaline Phosphatase 315 U/L (38-126) H 07/22/19 00:52 Ammonia 47 umol/L (<30) H 07/22/19 00:52 Troponin I 0.053 ng/mL (0.000-0.034) H* 07/22/19 12:49 Total Protein 7.8 g/dL (6.3-8.2) 07/22/19 00:52 Albumin 3.3 g/dL (3.5-5.0) L 07/22/19 00:52 Urine Color Yellow 07/22/19 01:04 Urine Appearance Cloudy (Clear) H 07/22/19 01:04 Urine pH 6.0 (5.0-8.0) 07/22/19 01:04 Ur Specific [place] 1.022 (1.001-1.035) 07/22/19 01:04 Urine Protein 1+ (Negative) H 07/22/19 01:04 Urine Glucose (UA) Negative (Negative) 07/22/19 01:04 Urine Ketones Trace (Negative) H 07/22/19 01:04 Urine Blood Negative (Negative) 07/22/19 01:04 Urine Nitrite Negative (Negative) 07/22/19 01:04 Urine Bilirubin Negative (Negative) 07/22/19 01:04 Urine Urobilinogen <2.0 mg/dL (<2.0) 07/22/19 01:04 Ur Leukocyte Esterase Moderate (Negative) H 07/22/19 01:04 Urine RBC 3 /hpf (0-5) 07/22/19 01:04 Urine WBC 32 /hpf (0-5) H 07/22/19 01:04 Ur Squamous Epith Cells 32 /hpf (0-4) H 07/22/19 01:04 Urine Bacteria Rare /hpf (None) H 07/22/19 01:04 Hyaline Casts 85 /lpf (0-2) H 07/22/19 01:04 Urine Mucus Occasional /hpf (None) H 07/22/19 01:04 Urine Opiates Screen Detected (NotDetected) H 07/22/19 01:04 Ur Oxycodone Screen Not Detected (NotDetected) 07/22/19 01:04 Urine Methadone Screen Not Detected (NotDetected) 07/22/19 01:04 Ur Propoxyphene Screen Not Detected (NotDetected) 07/22/19 01:04 Ur Barbiturates Screen Not Detected (NotDetected) 07/22/19 01:04 U Tricyclic Antidepress Not Detected (NotDetected) 07/22/19 01:04 Ur Phencyclidine Scrn Not Detected (NotDetected) 07/22/19 01:04 Ur Amphetamines Screen Not Detected (NotDetected) 07/22/19 01:04 U Methamphetamines Scrn Not Detected (NotDetected) 07/22/19 01:04 U Benzodiazepines Scrn Not Detected (NotDetected) 07/22/19 01:04 Urine Cocaine Screen Not Detected (NotDetected) 07/22/19 01:04 U Marijuana (THC) Screen Not Detected (NotDetected) 07/22/19 01:04 Microbiology 07/22/19 01:04 Urine,Voided Urine Culture - Preliminary Group D Enterococcus Assessment and Plan (1) Change in mental status Narrative/Plan: 73-year-old woman who has a history of hepatocellular carcinoma and resultant cirrhosis and some ascites presents to hospital with worsening mental status. Her ammonia level was elevated with treatment is started having some clearing of her mentation although was still with some confusion. However is comfortable except she does have lower quadrant abdominal tenderness which apparently has been present on prior exams. She does not have suprapubic tenderness She does not have flank tenderness. There is evidence of urine culture with VRE which she has been colonized with. At this time she does not have leukocytosis, fever or other evidence of infection at this time. The altered mental status is likely in the basis of her underlying hepatocellular disease and with this treatment is improving. Would not utilize antibiotic therapy at this time in that she does not appear to have active infection but just colonization of her urinary tract with the VRE. Current Visit: Yes Status: Acute Code(s): R41.82 - ALTERED MENTAL STATUS, UNSPECIFIED SNOMED Code(s): 388598664 (2) Colonization with VRE (vancomycin-resistant enterococcus) Current Visit: Yes Status: Acute Code(s): Z22.338 - CARRIER OF OTHER STREPTOCOCCUS SNOMED Code(s): 891432925 (3) Chronic abdominal pain Current Visit: Yes Status: Acute Code(s): R10.9 - UNSPECIFIED ABDOMINAL PAIN; G89.29 - OTHER CHRONIC PAIN SNOMED Code(s): 885105608 (4) Cirrhosis of liver with ascites Current Visit: No Status: Acute Code(s): K74.60 - UNSPECIFIED CIRRHOSIS OF LIVER; R18.8 - OTHER ASCITES SNOMED Code(s): 09457698
--- NOTE | 2019-07-23 22:20 | P.CONS ---
History of Present Illness - Reason for Consult Consult date: 07/23/19 Altered mental status Requesting physician: Artemio Lea - Chief Complaint Altered mental status - History of Present Illness 73 year female with a history of hepatocellular carcinoma status post chemoembolization, underlying nonalcoholic liver cirrhosis, portal hypertension and ascites paracentesis, diverticular disease with ileostomy placement, chronic abdominal pain, chronic kidney disease who presents to the hospital presented to the hospital due to confusion and altered mental status. The patient has numerous similar presentations in hospitalizations for decompensated cirrhosis with hepatic encephalopathy. She is treated with lactulose and Xifaxan therapy. There is question of possible urinary tract infection on this hospitalization, however vicious disease is seen the patient and feels that given the absence of fevers, leukocytosis with only findings of VRE which the patient is known to be colonized with that antibiotic therapy is not indicated at this time. She did have elevated ammonia on presentation of 47. In addition to some she is reporting some peristomal pain which has been chronic in nature. She has been evaluated by the surgical service with no plans for intervention. She has been on Bentyl therapy in the outpatient setting with some improvement in her symptoms which are likely multifactorial given prior surgeries as well as functional bowel disorder. Mentation is improved at this time. Review of Systems REVIEW OF SYSTEMS: CONSTITUTIONAL: Denies any fevers, chills, weight change or fatigue. CARDIOVASCULAR: Denies any chest pain, palpitations high or low blood pressures RESPIRATORY: Denies any shortness of breath, hemoptysis or cough. GENITOURINARY: No dysuria or hematuria. MUSCULOSKELETAL: No weakness reported. SKIN: Denies any new rashes or lesions, jaundice or pallor. PSYCHIATRIC: Denies any depression or anxiety, patient does complain of altered mental status prior to presentation. NEUROLOGY: Denies headache, denies any new focal deficits. EARS/NOSE/THROAT: No recent hearing change, congestion, nasal discharge or sore throat. EYES: No pain in eyes, discharge or change in vision. GASTROINTESTINAL: As per HPI. Past Medical History Past Medical History: Cancer, Diabetes Mellitus, Hypertension, Liver Disease, Myocardial Infarction ([place]), Renal Disease Additional Past Medical History / Comment(s): Hepatocellular liver cancer with chemo immobilization-last time being 2017, ascities with paracentesis's may 2019, nonalcoholic liver cirrhosis, chronic pancytopenia, chronic elevated ammonia levels, hepatic encephalopathy, chronic elevated LFTs, chronic abdominal pain, stomach ulcer, diverticular disease with ileostomy, IDDM type II, iron anemia, CKD stage III, nonsustained vtach, UTI, high ammonia levels Last Myocardial Infarction Date:: unk History of Any Multi-Drug Resistant Organisms: MRSA, VRE Year Discovered:: 06/12/19- VRE; 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 Past Anesthesia/Blood Transfusion Reactions: No Reported Reaction Past Psychological History: Anxiety, Depression Additional Psychological History / Comment(s): Reformed smoker. . Retired. No experience. No animal exposures Smoking Status: Former smoker Past Alcohol Use History: None Reported Additional Past Alcohol Use History / Comment(s): started smoking 1962 and quit 1965 Past Drug Use History: None Reported - Past Family History Mother History Unknown: Yes Family Medical History: Congestive Heart Failure (CHF) Additional Family Medical History / Comment(s): Mother is 94 yrs old. Father Family Medical History: Chest Pain / Angina Additional Family Medical History / Comment(s): Father is . Medications and Allergies Home Medications Medication Instructions Recorded Confirmed Type Omeprazole [PriLOSEC] 20 mg PO BID 10/23/18 07/22/19 History Sucralfate [Carafate] 1 gm PO QID 10/23/18 07/22/19 History Insulin Regular, Human [NovoLIN R] 10 unit SQ AC-TID 10/24/18 07/22/19 History Cholecalciferol [Vitamin D3 (25 4,000 unit PO DAILY 01/16/19 07/22/19 History Mcg = 1000 Iu)] Ferrous Sulfate [Iron (65 MG 325 mg PO BID 01/31/19 07/22/19 History Elemental)] Insulin NPH [humuLIN N] 18 unit SQ BID vial 02/06/19 07/22/19 Rx Morphine Sulfate [Ms Contin] 15 mg PO BID 05/15/19 07/22/19 History Dicyclomine [Bentyl] 10 mg PO TID PRN 06/12/19 07/22/19 History Metoprolol Tartrate [Lopressor] 6.25 mg PO DAILY 06/12/19 07/22/19 History Ondansetron Odt [Zofran ODT] 8 mg SL DAILY PRN 06/12/19 07/22/19 History buPROPion HCL [Wellbutrin SR] 150 mg PO BID 06/12/19 07/22/19 History clonazePAM [KlonoPIN] 0.5 mg PO Q8HR PRN 06/12/19 07/22/19 History Lactulose [Cephulac] 30 gm PO TID 07/22/19 07/22/19 History Allergies Allergy/AdvReac Type Severity Reaction Status Date / Time amlodipine Allergy Rash/Hives Verified 07/22/19 08:08 oxycodone Allergy Rash/Hives Verified 07/22/19 08:08 Penicillins Allergy Rash/Hives Verified 07/22/19 08:08 hydromorphone [From Dilaudid] AdvReac Mild tactile Verified 07/22/19 08:08 disturbance GREG Inhibitors AdvReac Cough Verified 07/22/19 08:08 sodium dodecyclbenzene Allergy Rash/Hives Uncoded 07/22/19 08:08 sulfonate Physical Exam Vitals: Vital Signs Temp Pulse Resp BP Pulse Ox 07/23/19 14:14 98.3 F 62 20 126/73 100 07/23/19 07:00 97.9 F 68 18 106/64 99 07/23/19 00:00 20 07/22/19 23:00 98.8 F 68 16 118/62 99 Intake and Output 07/23/19 07/23/19 07/23/19 06:59 14:59 22:59 Output Total 600 Balance -600 Output: Stool 600 Other: Voiding Method Toilet Toilet Toilet # Voids 1 3 # Bowel Movements 0 On physical examination, patient appears comfortable in no apparent distress. HEAD: Normocephalic, atraumatic. EYES: No scleral icterus. No conjunctival injection. MOUTH: No lesions, tongue midline. NECK: Trachea midline, no gross abnormalities. CHEST: Clear to auscultation with no wheezing or rhonchi appreciated. HEART: Regular rate and rhythm. ABDOMEN: Soft, obese with ostomy intact with good output. Bowel sounds are positive. No organomegaly. No guarding or rigidity. EXTREMITIES: No pedal edema. SKIN: No rashes, no jaundice. NEUROLOGIC: Alert and oriented x3, no asterixis noted. No focal deficits. Results CBC & Chem 7: 07/22/19 00:52 07/22/19 00:52 Labs: Abnormal Lab Results - Last 24 Hours (Table) 07/23/19 07/23/19 07/23/19 Range/Units 07:13 11:41 16:19 POC Glucose (mg/dL) 138 H 144 H 226 H (75-99) mg/dL 07/23/19 Range/Units 20:23 POC Glucose (mg/dL) 141 H (75-99) mg/dL Microbiology - Last 24 Hours (Table) 07/22/19 01:04 Urine Culture - Preliminary Urine,Voided Group D Enterococcus Assessment and Plan (1) Cirrhosis of liver with ascites Narrative/Plan: 73 year female with a history of hepatocellular carcinoma status post chemoembolization, underlying nonalcoholic liver cirrhosis, portal hypertension and ascites paracentesis, diverticular disease with ileostomy placement, chronic abdominal pain, chronic kidney disease who presents to the hospital presented to the hospital due to confusion and altered mental status. Ammonia found to be 47 on presentation. Currently mentation is improved. Suspicion is for noncompliance with medications in the outpatient setting. No signs or symptoms of GI bleeding or infection at this time. Current Visit: No Status: Acute Code(s): K74.60 - UNSPECIFIED CIRRHOSIS OF LIVER; R18.8 - OTHER ASCITES SNOMED Code(s): 14660811 (2) Change in mental status Current Visit: Yes Status: Acute Code(s): R41.82 - ALTERED MENTAL STATUS, UNSPECIFIED SNOMED Code(s): 664963264 (3) Abdominal pain Current Visit: No Status: Acute Priority: High Code(s): R10.9 - UNSPECIFIED ABDOMINAL PAIN SNOMED Code(s): 64402138 (4) Colostomy in place Current Visit: No Status: Acute Code(s): Z93.3 - COLOSTOMY STATUS SNOMED Code(s): 220824144 (5) Hepatic encephalopathy Current Visit: No Status: Acute Code(s): K72.90 - HEPATIC FAILURE, UNSPECIFIED WITHOUT COMA SNOMED Code(s): 05683705 Plan: Supportive care Okay for sodium restricted diet At this time will increase dicyclomine to 20 mg 4 times a day Continue lactulose 3 times a day Continue Xifaxan therapy Thank you for allowing us to participate in the care of this patient we will continue to follow
[2019-07-24 07:00] LABS: Glucose,Whole Blood 94 mg/dL (75-99)
[2019-07-24] MEDS: SUCRALFATE 1 GM TAB PO SCH ×4 (07:27→20:14)
[2019-07-24] MEDS: METOPROLOL TARTRATE 12.5 MG TAB PO SCH (07:27)
[2019-07-24] MEDS: CHOLECALCIFEROL 1,000 UNIT TAB PO SCH (07:27)
[2019-07-24] MEDS: DICYCLOMINE 20 MG TAB PO SCH ×4 (07:27→20:14)
[2019-07-24] MEDS: FERROUS SULFATE 325 MG TAB PO SCH ×2 (07:27→20:14)
[2019-07-24] MEDS: RIFAXIMIN 550 MG TABLET PO SCH ×2 (07:28→20:14)
[2019-07-24] MEDS: buPROPion SR 150 MG TABLET.ER PO SCH ×2 (07:28→20:14)
[2019-07-24] MEDS: LACTULOSE 20 GM/30 ML CUP PO SCH ×3 (07:28→20:15)
[2019-07-24] MEDS: INSULIN ASPART (NovoLOG) 100 UNIT/ML VIAL SQ SCH ×4 (07:28→21:27)
[2019-07-24] MEDS: MORPHINE SULFATE ER 15 MG TABLET PO SCH ×2 (07:31→20:14)
[2019-07-24 09:18] LABS: Basophils % (A) 1 %; Eosinophils # (A) 0.3 k/uL (0-0.7); Eosinophils % (A) 6 %; HGB 11.9 gm/dL (11.4-16.0); Lymphocytes # (A) 1.1 k/uL (1.0-4.8); Lymphocytes % (A) 26 %; MCH 35.1 pg (25.0-35.0); MCV 106.1 fL (80.0-100.0); Macrocytosis Moderate; Mean Platelet Volume 8.8; Monocytes # (A) 0.3 k/uL (0-1.0); Monocytes % (A) 7 %; Neutrophils # (A) 2.4 k/uL (1.3-7.7); Neutrophils % (A) 57 %; RDW 15.7 % (11.5-15.5); WBC 4.2 k/uL (3.8-10.6)
[2019-07-24 09:28] LABS: Albumin 2.5 g/dL (3.5-5.0); Calcium 8.2 mg/dL (8.4-10.2); Potassium 4.5 mmol/L (3.5-5.1); Total Bilirubin 2.3 mg/dL (0.2-1.3); Total Protein 6.2 g/dL (6.3-8.2)
[2019-07-24 10:21] LABS: Large Platelets Present
[2019-07-24 10:22] LABS: Platelet Count 81 k/uL (150-450); Polychromasia Present
--- NOTE | 2019-07-24 10:33 | P.PN ---
Subjective Progress Note Date: 07/24/19 Charlene valladares is a 73-year-old female who presented to [facility] emergency room with a chief complaint of confusion and altered mental status she was also having episodes of vomiting, she was evaluated in the emergency room her ammonia level was elevated at 47, she also had evidence of urinary tract infection, she was admitted to medical floor for further evaluation and treatment, chest x-ray done in the emergency room did not reveal any acute abnormality, patient had multiple similar admissions in the last 6 months she had computed tomography scan of the brain without contrast 4 times in the last 6 months and no acute abnormality was evident on any of the CT scans. Computed tomography scan of the brain was not done during this admission. Patient has a known history of liver cancer she also has known history of hypertension, diabetes mellitus, coronary artery disease with myocardial infarction, chronic kidney disease, history of nonsustained V. tach, liver cirrhosis with chronic elevation in ammonia level with episodes of mental status changes. On 07/23/2019 patient was seen and examined on the medical floor she is more alert and oriented she is complaining of more abdominal pain mostly in the right lower quadrants around the ileostomy area she is still complaining of feeling weak and tired otherwise she denies any complaints there is no fever or chills no headache or dizziness no chest pain no shortness of breath no cough no nausea or vomiting no diarrhea no burning was urination no frequency or urgency and no hematuria On 07/24/2019 patient is alert and oriented feeling improved from yesterday. 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 X-ray of abdomen completed showing nonacute abdomen no change. At this time patient denies any chest pain or shortness of breath nausea is improving. Patient denies any urinary burning or frequency. Objective - Vital Signs Vital signs: Vital Signs Temp 98.3 F 07/24/19 04:35 Pulse 64 07/24/19 04:35 Resp 20 07/24/19 04:35 BP 113/63 07/24/19 04:35 Pulse Ox 97 07/24/19 04:35 Intake & Output 07/23/19 07/24/19 07/24/19 18:59 06:59 18:59 Intake Total 400 Balance 400 Intake: Oral 400 Other: Voiding Method Toilet Toilet Toilet # Voids 3 2 - Exam In general patient is alert slightly confused in no apparent distress HEENT head normocephalic and atraumatic Neck is supple no JVD no goiter no lymphadenopathy Chest exam reveals a few scattered rhonchi no wheezing Cardiac exam reveals regular heart sounds S1 and S2 no gallops no murmurs Abdomen is soft with mild diffuse tenderness, patient is also having more tenderness in the right lower quadrant around the ileostomy area no organomegaly no palpable masses was normal bowel sounds Extremity exam reveals no edema no cyanosis or clubbing Neurological examination reveals mental status changes was mild confusion and difficulty finding words, otherwise no acute focal neurological deficit - Labs CBC & Chem 7: 07/24/19 07:52 07/24/19 07:52 Labs: Abnormal Lab Results - Last 24 Hours (Table) 07/23/19 07/23/19 07/23/19 Range/Units 11:41 16:19 20:23 RBC (3.80-5.40) m/uL MCV (80.0-100.0) fL MCH (25.0-35.0) pg RDW (11.5-15.5) % Chloride (98-107) mmol/L Carbon Dioxide (22-30) mmol/L Glucose (74-99) mg/dL POC Glucose (mg/dL) 144 H 226 H 141 H (75-99) mg/dL Calcium (8.4-10.2) mg/dL Total Bilirubin (0.2-1.3) mg/dL AST (14-36) U/L Alkaline Phosphatase (38-126) U/L Total Protein (6.3-8.2) g/dL Albumin (3.5-5.0) g/dL 07/24/19 07/24/19 Range/Units 07:52 07:52 RBC 3.40 L (3.80-5.40) m/uL MCV 106.1 H (80.0-100.0) fL MCH 35.1 H (25.0-35.0) pg RDW 15.7 H (11.5-15.5) % Chloride 112 H (98-107) mmol/L Carbon Dioxide 19 L (22-30) mmol/L Glucose 109 H (74-99) mg/dL POC Glucose (mg/dL) (75-99) mg/dL Calcium 8.2 L (8.4-10.2) mg/dL Total Bilirubin 2.3 H (0.2-1.3) mg/dL AST 71 H (14-36) U/L Alkaline Phosphatase 251 H (38-126) U/L Total Protein 6.2 L (6.3-8.2) g/dL Albumin 2.5 L (3.5-5.0) g/dL Microbiology - Last 24 Hours (Table) 07/22/19 01:04 Urine Culture - Preliminary Urine,Voided Group D Enterococcus Assessment and Plan Assessment: #1 acute mental status changes. Improved #2 elevated ammonia level at 47. Patient maintained on lactulose and Xifaxan. Repeat ammonia has been ordered #3 mild elevation in troponin level #4 nausea and vomiting. 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 Patient was evaluated by infectious disease. Per ID chronic colonization of VRE and patient's urine no need for antibiotics at this time DVT prophylaxis SCDs due to thrombocytopenia. GI prophylaxis Protonix I performed an examination of the patient and discussed their management with the Nurse Practitioner. I have reviewed the Nurse Practitioner's notes and agree with the documented findings and plan of care
[2019-07-24 11:56] LABS: Glucose,Whole Blood 160 mg/dL (75-99)
[2019-07-24 17:08] LABS: Glucose,Whole Blood 240 mg/dL (75-99)
[2019-07-24] MEDS: PANTOPRAZOLE 40 MG TABLET PO SCH (20:14)
[2019-07-24 20:23] LABS: Glucose,Whole Blood 120 mg/dL (75-99)
--- NOTE | 2019-07-24 21:45 | P.PN ---
Subjective Progress Note Date: 07/24/19 Principal diagnosis: Decompensated cirrhosis with ascites, history of complicated diverticulitis resulting in colostomy formation, hepatic encephalopathy Patient is seen in bed reporting that she is having some chest pain today. If still having some peristomal pain. Tolerating her diet. Objective - Vital Signs Vital signs: Vital Signs Temp 99 F 07/24/19 20:45 Pulse 62 07/24/19 20:45 Resp 20 07/24/19 20:45 BP 100/65 07/24/19 20:45 Pulse Ox 99 07/24/19 20:45 Intake & Output 07/24/19 07/24/19 07/25/19 06:59 18:59 06:59 Intake Total 400 300 Balance 400 300 Intake: Oral 400 300 Other: Voiding Method Toilet Toilet Toilet # Voids 2 3 - Exam On physical examination, patient appears comfortable in no apparent distress. HEAD: Normocephalic, atraumatic. EYES: No scleral icterus. No conjunctival injection. MOUTH: No lesions, tongue midline. NECK: Trachea midline, no gross abnormalities. CHEST: Clear to auscultation with no wheezing or rhonchi appreciated. HEART: S1-S2 appreciated. ABDOMEN: Soft, obese, with right-sided abdominal ostomy intact. Bowel sounds are positive. No organomegaly. No guarding or rigidity. EXTREMITIES: No pedal edema. SKIN: No rashes, no jaundice. NEUROLOGIC: Alert and oriented x3. No focal deficits. - Labs CBC & Chem 7: 07/24/19 07:52 07/24/19 07:52 Labs: Abnormal Lab Results - Last 24 Hours (Table) 07/24/19 07/24/19 07/24/19 Range/Units 07:52 07:52 08:40 RBC 3.40 L (3.80-5.40) m/uL MCV 106.1 H (80.0-100.0) fL MCH 35.1 H (25.0-35.0) pg RDW 15.7 H (11.5-15.5) % Plt Count 81 L (150-450) k/uL Chloride 112 H (98-107) mmol/L Carbon Dioxide 19 L (22-30) mmol/L Glucose 109 H (74-99) mg/dL POC Glucose (mg/dL) (75-99) mg/dL Calcium 8.2 L (8.4-10.2) mg/dL Total Bilirubin 2.3 H (0.2-1.3) mg/dL AST 71 H (14-36) U/L Alkaline Phosphatase 251 H (38-126) U/L Ammonia 73 H (<30) umol/L Troponin I (0.000-0.034) ng/mL Total Protein 6.2 L (6.3-8.2) g/dL Albumin 2.5 L (3.5-5.0) g/dL 07/24/19 07/24/19 07/24/19 Range/Units 11:53 17:03 18:50 RBC (3.80-5.40) m/uL MCV (80.0-100.0) fL MCH (25.0-35.0) pg RDW (11.5-15.5) % Plt Count (150-450) k/uL Chloride (98-107) mmol/L Carbon Dioxide (22-30) mmol/L Glucose (74-99) mg/dL POC Glucose (mg/dL) 160 H 240 H (75-99) mg/dL Calcium (8.4-10.2) mg/dL Total Bilirubin (0.2-1.3) mg/dL AST (14-36) U/L Alkaline Phosphatase (38-126) U/L Ammonia (<30) umol/L Troponin I 0.045 H* (0.000-0.034) ng/mL Total Protein (6.3-8.2) g/dL Albumin (3.5-5.0) g/dL 07/24/19 Range/Units 20:21 RBC (3.80-5.40) m/uL MCV (80.0-100.0) fL MCH (25.0-35.0) pg RDW (11.5-15.5) % Plt Count (150-450) k/uL Chloride (98-107) mmol/L Carbon Dioxide (22-30) mmol/L Glucose (74-99) mg/dL POC Glucose (mg/dL) 120 H (75-99) mg/dL Calcium (8.4-10.2) mg/dL Total Bilirubin (0.2-1.3) mg/dL AST (14-36) U/L Alkaline Phosphatase (38-126) U/L Ammonia (<30) umol/L Troponin I (0.000-0.034) ng/mL Total Protein (6.3-8.2) g/dL Albumin (3.5-5.0) g/dL Assessment and Plan (1) Cirrhosis of liver with ascites Narrative/Plan: 73 year female with a history of hepatocellular carcinoma status post chemoembolization, underlying nonalcoholic liver cirrhosis, portal hypertension and ascites paracentesis, diverticular disease with ileostomy placement, chronic abdominal pain, chronic kidney disease who presents to the hospital presented to the hospital due to confusion and altered mental status. Ammonia found to be 47 on presentation. Currently mentation is improved. Suspicion is for noncompliance with medications in the outpatient setting. No signs or symptoms of GI bleeding or infection at this time. Current Visit: No Status: Acute Code(s): K74.60 - UNSPECIFIED CIRRHOSIS OF LIVER; R18.8 - OTHER ASCITES SNOMED Code(s): 35277174 (2) Change in mental status Current Visit: Yes Status: Acute Code(s): R41.82 - ALTERED MENTAL STATUS, UNSPECIFIED SNOMED Code(s): 802134449 (3) Abdominal pain Current Visit: No Status: Acute Priority: High Code(s): R10.9 - UNSPECIFIED ABDOMINAL PAIN SNOMED Code(s): 61861642 (4) Colostomy in place Current Visit: No Status: Acute Code(s): Z93.3 - COLOSTOMY STATUS SNOMED Code(s): 660241174 (5) Hepatic encephalopathy Current Visit: No Status: Acute Code(s): K72.90 - HEPATIC FAILURE, UNSPECIFIED WITHOUT COMA SNOMED Code(s): 84695408 Plan: Supportive care Okay for sodium restricted diet Dicyclomine to 20 mg 4 times a day Continue lactulose 3 times a day Continue Xifaxan therapy Thank you for allowing us to participate in the care of this patient we will continue to follow
[2019-07-25 07:23] LABS: Glucose,Whole Blood 212 mg/dL (75-99)
[2019-07-25] MEDS: buPROPion SR 150 MG TABLET.ER PO SCH ×2 (07:29→20:17)
[2019-07-25] MEDS: RIFAXIMIN 550 MG TABLET PO SCH ×2 (07:29→20:17)
[2019-07-25] MEDS: LACTULOSE 20 GM/30 ML CUP PO SCH ×3 (07:29→21:49)
[2019-07-25] MEDS: METOPROLOL TARTRATE 12.5 MG TAB PO SCH (07:29)
[2019-07-25] MEDS: CHOLECALCIFEROL 1,000 UNIT TAB PO SCH (07:30)
[2019-07-25] MEDS: SUCRALFATE 1 GM TAB PO SCH ×4 (07:30→20:17)
[2019-07-25] MEDS: FERROUS SULFATE 325 MG TAB PO SCH ×2 (07:30→20:17)
[2019-07-25] MEDS: DICYCLOMINE 20 MG TAB PO SCH ×4 (07:30→21:49)
[2019-07-25] MEDS: INSULIN ASPART (NovoLOG) 100 UNIT/ML VIAL SQ SCH ×4 (07:30→21:49)
[2019-07-25] MEDS: MORPHINE SULFATE ER 15 MG TABLET PO SCH ×2 (07:30→20:17)
[2019-07-25 08:22] LABS: Total Bilirubin 1.4 mg/dL (0.2-1.3); Total Protein 5.1 g/dL (6.3-8.2)
[2019-07-25 08:27] LABS: Basophils % (A) 1 %; Eosinophils # (A) 0.2 k/uL (0-0.7); Eosinophils % (A) 5 %; HCT 30.1 % (34.0-46.0); Lymphocytes % (A) 27 %; MCH 34.7 pg (25.0-35.0); MCHC 32.9 g/dL (31.0-37.0); MCV 105.5 fL (80.0-100.0); Macrocytosis Moderate; Mean Platelet Volume 8.8; Monocytes # (A) 0.3 k/uL (0-1.0); Monocytes % (A) 8 %; Neutrophils # (A) 2.1 k/uL (1.3-7.7); Neutrophils % (A) 56 %; RBC 2.86 m/uL (3.80-5.40); RDW 15.7 % (11.5-15.5); WBC 3.8 k/uL (3.8-10.6)
[2019-07-25 08:35] LABS: HGB 9.9 gm/dL (11.4-16.0); Platelet Count 71 k/uL (150-450)
--- NOTE | 2019-07-25 11:03 | P.PN ---
Subjective Progress Note Date: 07/25/19 Charlene valladares is a 73-year-old female who presented to [facility] emergency room with a chief complaint of confusion and altered mental status she was also having episodes of vomiting, she was evaluated in the emergency room her ammonia level was elevated at 47, she also had evidence of urinary tract infection, she was admitted to medical floor for further evaluation and treatment, chest x-ray done in the emergency room did not reveal any acute abnormality, patient had multiple similar admissions in the last 6 months she had computed tomography scan of the brain without contrast 4 times in the last 6 months and no acute abnormality was evident on any of the CT scans. Computed tomography scan of the brain was not done during this admission. Patient has a known history of liver cancer she also has known history of hypertension, diabetes mellitus, coronary artery disease with myocardial infarction, chronic kidney disease, history of nonsustained V. tach, liver cirrhosis with chronic elevation in ammonia level with episodes of mental status changes. On 07/23/2019 patient was seen and examined on the medical floor she is more alert and oriented she is complaining of more abdominal pain mostly in the right lower quadrants around the ileostomy area she is still complaining of feeling weak and tired otherwise she denies any complaints there is no fever or chills no headache or dizziness no chest pain no shortness of breath no cough no nausea or vomiting no diarrhea no burning was urination no frequency or urgency and no hematuria On 07/24/2019 patient is alert and oriented feeling improved from yesterday. 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 X-ray of abdomen completed showing nonacute abdomen no change. At this time patient denies any chest pain or shortness of breath nausea is improving. Patient denies any urinary burning or frequency. On 07/25/2019 she is feeling improved from yesterday. Patient is complaining of chest pain today troponins completed. Will consult cardiology services. Patient reports improvement with nausea and vomiting. Patient denies cough or shortness of breath. Patient encouraged to continue working with physical therapy. Objective - Vital Signs Vital signs: Vital Signs Temp 98.7 F 07/25/19 04:50 Pulse 61 07/25/19 04:50 Resp 20 07/25/19 04:50 BP 94/59 07/25/19 04:50 Pulse Ox 98 07/25/19 04:50 Intake & Output 07/24/19 07/25/19 07/25/19 18:59 06:59 18:59 Intake Total 700 Balance 700 Intake: Oral 700 Other: Voiding Method Toilet Toilet Toilet # Voids 3 2 - Exam In general patient is alert slightly confused in no apparent distress HEENT head normocephalic and atraumatic Neck is supple no JVD no goiter no lymphadenopathy Chest exam reveals a few scattered rhonchi no wheezing Cardiac exam reveals regular heart sounds S1 and S2 no gallops no murmurs Abdomen is soft with mild diffuse tenderness, patient is also having more tenderness in the right lower quadrant around the ileostomy area no organomegaly no palpable masses was normal bowel sounds Extremity exam reveals no edema no cyanosis or clubbing Neurological examination reveals mental status changes was mild confusion and difficulty finding words, otherwise no acute focal neurological deficit - Labs CBC & Chem 7: 07/25/19 07:22 07/25/19 07:22 Labs: Abnormal Lab Results - Last 24 Hours (Table) 07/24/19 07/24/19 07/24/19 Range/Units 11:53 17:03 18:50 RBC (3.80-5.40) m/uL Hgb (11.4-16.0) gm/dL Hct (34.0-46.0) % MCV (80.0-100.0) fL RDW (11.5-15.5) % Plt Count (150-450) k/uL Chloride (98-107) mmol/L Carbon Dioxide (22-30) mmol/L Glucose (74-99) mg/dL POC Glucose (mg/dL) 160 H 240 H (75-99) mg/dL Calcium (8.4-10.2) mg/dL Total Bilirubin (0.2-1.3) mg/dL AST (14-36) U/L Alkaline Phosphatase (38-126) U/L Ammonia (<30) umol/L Troponin I 0.045 H* (0.000-0.034) ng/mL Total Protein (6.3-8.2) g/dL Albumin (3.5-5.0) g/dL 07/24/19 07/25/19 07/25/19 Range/Units 20:21 00:49 07:17 RBC (3.80-5.40) m/uL Hgb (11.4-16.0) gm/dL Hct (34.0-46.0) % MCV (80.0-100.0) fL RDW (11.5-15.5) % Plt Count (150-450) k/uL Chloride (98-107) mmol/L Carbon Dioxide (22-30) mmol/L Glucose (74-99) mg/dL POC Glucose (mg/dL) 120 H 212 H (75-99) mg/dL Calcium (8.4-10.2) mg/dL Total Bilirubin (0.2-1.3) mg/dL AST (14-36) U/L Alkaline Phosphatase (38-126) U/L Ammonia (<30) umol/L Troponin I 0.051 H* (0.000-0.034) ng/mL Total Protein (6.3-8.2) g/dL Albumin (3.5-5.0) g/dL 07/25/19 07/25/19 07/25/19 Range/Units 07:22 07:22 07:22 RBC 2.86 L (3.80-5.40) m/uL Hgb 9.9 L D (11.4-16.0) gm/dL Hct 30.1 L (34.0-46.0) % MCV 105.5 H (80.0-100.0) fL RDW 15.7 H (11.5-15.5) % Plt Count 71 L (150-450) k/uL Chloride 112 H (98-107) mmol/L Carbon Dioxide 21 L (22-30) mmol/L Glucose 188 H (74-99) mg/dL POC Glucose (mg/dL) (75-99) mg/dL Calcium 8.0 L (8.4-10.2) mg/dL Total Bilirubin 1.4 H (0.2-1.3) mg/dL AST 61 H (14-36) U/L Alkaline Phosphatase 226 H (38-126) U/L Ammonia 32 H (<30) umol/L Troponin I (0.000-0.034) ng/mL Total Protein 5.1 L (6.3-8.2) g/dL Albumin 2.0 L (3.5-5.0) g/dL 07/25/19 Range/Units 07:22 RBC (3.80-5.40) m/uL Hgb (11.4-16.0) gm/dL Hct (34.0-46.0) % MCV (80.0-100.0) fL RDW (11.5-15.5) % Plt Count (150-450) k/uL Chloride (98-107) mmol/L Carbon Dioxide (22-30) mmol/L Glucose (74-99) mg/dL POC Glucose (mg/dL) (75-99) mg/dL Calcium (8.4-10.2) mg/dL Total Bilirubin (0.2-1.3) mg/dL AST (14-36) U/L Alkaline Phosphatase (38-126) U/L Ammonia (<30) umol/L Troponin I 0.053 H* (0.000-0.034) ng/mL Total Protein (6.3-8.2) g/dL Albumin (3.5-5.0) g/dL Assessment and Plan Assessment: #1 acute mental status changes. Improved #2 elevated ammonia level at 47. Patient maintained on lactulose and Xifaxan. Repeat ammonia has been ordered #3 mild elevation in troponin level #4 nausea and vomiting. 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 Patient was evaluated by infectious disease. 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 Nystatin has been ordered 13. Chest pain. Troponin 0.045 0.051 0.053. EKG showing normal sinus rhythm with right bundle branch block. Cardiology services consulted DVT prophylaxis SCDs due to thrombocytopenia. GI prophylaxis Protonix I performed an examination of the patient and discussed their management with the Nurse Practitioner. I have reviewed the Nurse Practitioner's notes and agree with the documented findings and plan of care
[2019-07-25 12:32] LABS: Glucose,Whole Blood 119 mg/dL (75-99)
[2019-07-25] MEDS: NYSTATIN 100,000 UNIT/ML SUSP 500,000 UNIT/5 ML CUP PO SCH ×3 (12:34→21:50)
--- NOTE | 2019-07-25 12:56 | P.CRDCN ---
History of Present Illness History of present illness: This is a pleasant 73-year-old female past medical history significant for hypertension, diabetes mellitus, nonalcoholic liver cirrhosis, hepatocellular liver cancer status post chemo mobilization 2017. She presented to the hospital 2 days ago secondary to altered mental status is currently being treated for urinary tract infection as well as hepatic encephalopathy with elevated ammonia level. We have been asked to see her in consultation secondary to chest discomfort. She describes a squeezing pain in the left precordial region intermittently at times associated with activity. She states if she gets up and moves around his when she feels the discomfort. At the time of my exam when asked to lean forward to listen to her lungs. She started having this pain. She denies radiation to the arm, back, neck or jaw. There is no associated shortness of breath, dizziness, nausea, palpitations, vomiting or diaphoresis. Prior to arrival she had been vomiting multiple times/day for over a week. This chest discomfort started 2 days ago. Troponin trending evaluated. Her troponins are chronically elevated since 12/2018 with no significant rise/fall trend. Initial EKG on admission July 22 revealed sinus mechanism heart rate of 72, right bundle branch block and PVCs. Repeat EKG obtained yesterday afternoon again revealed a right bundle branch block with underlying sinus mechanism and inferior Q waves. Chest x-ray is negative for an acute cardiopulmonary process. Laboratory data reviewed, WBC 3.8, hemoglobin 9.9 down from 14.1 on admission, platelets 71, sodium 137, potassium 5.0, creatinine 0.98 down from 1.29 on admission, alkaline phosphatase 226, total bilirubin 1.4, ammonia 32, troponin 0.058, 0.051, 0.053, 0.045, 0.051 and 0.053. Current daily cardiac medications include Lopressor 6.25 mg daily. Most recent echocardiogram obtained May 2019 reveals preserved LV systolic function with ejection fraction 50-55%, mild posterior hypokinesia noted, moder ate to severe aortic stenosis with a mean gradient of 28 mmHg across the valve. At the time of my exam: CONSTITUTIONAL: Denies fever. Denies chills. EYES: Denies blurred vision. Denies vision changes. Denies eye pain. EARS, NOSE, MOUTH & THROAT: Denies headache. Denies sore throat. Denies ear pain. CARDIOVASCULAR: Complains of chest pain. Denies shortness of breath. Denies orthopnea. Denies PND. Denies palpitations. RESPIRATORY: Denies cough. GASTROINTESTINAL: Denies abdominal pain. Denies diarrhea. Denies constipation. Denies nausea. Denies vomiting. MUSCULOSKELETAL: Denies myalgias. INTEGUMENTARY: Denies pruitis. Denies rash. NEUROLOGIC: Denies numbness. Denies tingling. Denies weakness. PSYCHIATRIC: Denies anxiety. Denies depression. ENDOCRINE: Denies fatigue. Denies weight change. Denies polydipsia. Denies polyurina. GENITOURINARY: Denies burning, hematuria or urgency with micturation. HEMATOLOGIC: Denies history of anemia. Denies bleeding. Blood pressure 94/59 heart rate 61 afebrile maintaining oxygen saturation on room air GENERAL: This is a 73-year-old female in no apparent distress at the time of my examination. HEENT: Head is atraumatic, normocephalic. Pupils are equal, round. Sclerae anicteric. Conjunctivae are clear. Mucous membranes of the mouth are moist. Neck is supple. There is no jugular venous distention. No carotid bruit is heard. LUNGS: Clear to auscultation no wheezes, rales or rhonchi. No chest wall tenderness is noted on palpation or with deep breathing. HEART: Regular rate and rhythm with systolic ejection murmur at the base and left sternal border, no rubs or gallops. S1 and S2 heard. ABDOMEN: Soft, nontender. Bowel sounds are heard. No organomegaly noted. Ostomy to the right noted. EXTREMITIES: 1+ bilateral lower extremity pitting edema and no calf tenderness noted. VASCULAR: Radial and dorsalis pedis pulses palpated, no evidence of clubbing. NEUROLOGIC: Patient is awake, alert and oriented x3. ASSESSMENT Chest pain, troponin trend not suggestive of an acute event. Aortic stenosis Anemia, 4 gram loss since admission Hypertension Diabetes mellitus Decompensated cirrhosis History of diverticulitis resulting in colostomy Hepatic encephalopathy Thrmobocytopenia PLAN Recommend maximizing her medical therapy due to her decompensated liver cirrhosis. Initiate on imdur 30 mg daily. Continue lopressor as previously ordered. No aspirin due to thrombocytopenia. We will continue to follow and make recommendations accordingly. Thank you kindly for this consultation. Nurse Practitioner note has been reviewed, I agree with a documented findings and plan of care. Patient was seen and examined. Past Medical History Past Medical History: Cancer, Diabetes Mellitus, Hypertension, Liver Disease, Myocardial Infarction ([place]), Renal Disease Additional Past Medical History / Comment(s): Hepatocellular liver cancer with chemo immobilization-last time being 2017, ascities with paracentesis's may 2019, nonalcoholic liver cirrhosis, chronic pancytopenia, chronic elevated ammonia levels, hepatic encephalopathy, chronic elevated LFTs, chronic abdominal pain, stomach ulcer, diverticular disease with ileostomy, IDDM type II, iron anemia, CKD stage III, nonsustained vtach, UTI, high ammonia levels Last Myocardial Infarction Date:: unk History of Any Multi-Drug Resistant Organisms: MRSA, VRE Date of last positivie culture/infection: 06/12/19- VRE; 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 Past Anesthesia/Blood Transfusion Reactions: No Reported Reaction Past Psychological History: Anxiety, Depression Additional Psychological History / Comment(s): Reformed smoker. . Retired. No experience. No animal exposures Smoking Status: Former smoker Past Alcohol Use History: None Reported Additional Past Alcohol Use History / Comment(s): started smoking 1962 and quit 1965 Past Drug Use History: None Reported - Past Family History Mother History Unknown: Yes Family Medical History: Congestive Heart Failure (CHF) Additional Family Medical History / Comment(s): Mother is 94 yrs old. Father Family Medical History: Chest Pain / Angina Additional Family Medical History / Comment(s): Father is . Medications and Allergies Home Medications Medication Instructions Recorded Confirmed Type Omeprazole [PriLOSEC] 20 mg PO BID 10/23/18 07/22/19 History Sucralfate [Carafate] 1 gm PO QID 10/23/18 07/22/19 History Insulin Regular, Human [NovoLIN R] 10 unit SQ AC-TID 10/24/18 07/22/19 History Cholecalciferol [Vitamin D3 (25 4,000 unit PO DAILY 01/16/19 07/22/19 History Mcg = 1000 Iu)] Ferrous Sulfate [Iron (65 MG 325 mg PO BID 01/31/19 07/22/19 History Elemental)] Insulin NPH [humuLIN N] 18 unit SQ BID vial 02/06/19 07/22/19 Rx Morphine Sulfate [Ms Contin] 15 mg PO BID 05/15/19 07/22/19 History Dicyclomine [Bentyl] 10 mg PO TID PRN 06/12/19 07/22/19 History Metoprolol Tartrate [Lopressor] 6.25 mg PO DAILY 06/12/19 07/22/19 History Ondansetron Odt [Zofran ODT] 8 mg SL DAILY PRN 06/12/19 07/22/19 History buPROPion HCL [Wellbutrin SR] 150 mg PO BID 06/12/19 07/22/19 History clonazePAM [KlonoPIN] 0.5 mg PO Q8HR PRN 06/12/19 07/22/19 History Lactulose [Cephulac] 30 gm PO TID 07/22/19 07/22/19 History Allergies Allergy/AdvReac Type Severity Reaction Status Date / Time amlodipine Allergy Rash/Hives Verified 07/22/19 08:08 oxycodone Allergy Rash/Hives Verified 07/22/19 08:08 Penicillins Allergy Rash/Hives Verified 07/22/19 08:08 hydromorphone [From Dilaudid] AdvReac Mild tactile Verified 07/22/19 08:08 disturbance GREG Inhibitors AdvReac Cough Verified 07/22/19 08:08 sodium dodecyclbenzene Allergy Rash/Hives Uncoded 07/22/19 08:08 sulfonate Physical Exam Vitals: Vital Signs Temp Pulse Resp BP BP Pulse Ox 07/25/19 04:50 98.7 F 61 20 94/59 98 07/24/19 20:45 99 F 62 20 100/65 99 07/24/19 17:52 59 L 18 109/55 99 07/24/19 15:00 98.5 F 67 15 120/64 99 Intake and Output 07/24/19 07/25/19 07/25/19 22:59 06:59 14:59 Intake Total 500 200 Balance 500 200 Intake: Oral 500 200 Other: Voiding Method Toilet Toilet Toilet # Voids 2 2 3 Results 07/25/19 07:22 07/25/19 07:22 Cardiac Enzymes 07/24/19 07/25/19 07/25/19 Range/Units 18:50 00:49 07:22 AST 61 H (14-36) U/L Troponin I 0.045 H* 0.051 H* (0.000-0.034) ng/mL 07/25/19 Range/Units 07:22 AST (14-36) U/L Troponin I 0.053 H* (0.000-0.034) ng/mL CBC 07/25/19 Range/Units 07:22 WBC 3.8 (3.8-10.6) k/uL RBC 2.86 L (3.80-5.40) m/uL Hgb 9.9 L D (11.4-16.0) gm/dL Hct 30.1 L (34.0-46.0) % Plt Count 71 L (150-450) k/uL Comprehensive Metabolic Panel 07/25/19 Range/Units 07:22 Sodium 137 (137-145) mmol/L Potassium 5.0 (3.5-5.1) mmol/L Chloride 112 H (98-107) mmol/L Carbon Dioxide 21 L (22-30) mmol/L BUN 13 (7-17) mg/dL Creatinine 0.98 (0.52-1.04) mg/dL Glucose 188 H (74-99) mg/dL Calcium 8.0 L (8.4-10.2) mg/dL AST 61 H (14-36) U/L ALT 35 (9-52) U/L Alkaline Phosphatase 226 H (38-126) U/L Total Protein 5.1 L (6.3-8.2) g/dL Albumin 2.0 L (3.5-5.0) g/dL Current Medications Generic Name Dose Route Start Last Admin Trade Name Freq PRN Reason Stop Dose Admin Bupropion HCl 150 mg 07/22/19 21:00 07/25/19 07:29 Wellbutrin Sr PO 150 mg BID JENNY Administration Cholecalciferol 4,000 unit 07/23/19 09:00 07/25/19 07:30 Vitamin D3 (25 Mcg = 1000 Iu) PO 4,000 unit DAILY JENNY Administration Clonazepam 0.5 mg 07/22/19 10:52 Klonopin PO Q8HR PRN Anxiety Dicyclomine HCl 20 mg 07/24/19 09:00 07/25/19 07:30 Bentyl PO 20 mg QID [facility] Administration Ferrous Sulfate 325 mg 07/22/19 21:00 07/25/19 07:30 Feosol PO 325 mg BID JENNY Administration Insulin Aspart 0 unit 07/22/19 12:30 07/25/19 07:30 Novolog SQ 3 unit ACHS JENNY Administration Protocol Lactulose 30 gm 07/22/19 16:00 07/25/19 07:29 Cephulac PO 30 gm TID JENNY Administration Metoprolol Tartrate 6.25 mg 07/22/19 11:00 07/25/19 07:29 Lopressor PO 6.25 mg DAILY JENNY Administration Morphine Sulfate 15 mg 07/22/19 11:00 07/25/19 07:30 Ms Contin PO 15 mg BID JENNY Administration Naloxone HCl 0.2 mg 07/22/19 02:58 Narcan IV Q2M PRN Opioid Reversal Nystatin 500,000 unit 07/25/19 13:00 Mycostatin Oral Susp PO QID JENNY Pantoprazole Sodium 40 mg 07/22/19 21:00 07/24/19 20:14 Protonix PO 40 mg HS JENNY Administration Rifaximin 550 mg 07/22/19 12:45 07/25/19 07:29 Xifaxan PO 08/21/19 12:46 550 mg BID JENNY Administration Sucralfate 1 gm 07/22/19 12:30 07/25/19 07:30 Carafate PO 1 gm ACHS JENNY Administration Intake and Output 07/24/19 07/25/19 07/25/19 22:59 06:59 14:59 Intake Total 500 200 Balance 500 200 Intake: Oral 500 200 Other: Voiding Method Toilet Toilet Toilet # Voids 2 2 3 07/25/19 07:22 07/25/19 07:22
[2019-07-25] MEDS: ISOSORBIDE MONONITRATE ER 30 MG TAB.ER.24H PO SCH (14:45)
--- NOTE | 2019-07-25 17:06 | P.PN ---
Subjective Progress Note Date: 07/25/19 Principal diagnosis: Decompensated cirrhosis with ascites, history of complicated diverticulitis resulting in colostomy formation, hepatic encephalopathy Patient is seen in bed reporting that she is still having some chest pain today. Tolerating her diet. No nausea or vomiting reported. Objective - Vital Signs Vital signs: Vital Signs Temp 98.8 F 07/25/19 14:42 Pulse 58 L 07/25/19 14:42 Resp 16 07/25/19 14:42 BP 107/59 07/25/19 14:42 Pulse Ox 100 07/25/19 14:42 Intake & Output 07/24/19 07/25/19 07/25/19 18:59 06:59 18:59 Intake Total 700 Output Total 600 Balance 700 -600 Intake: Oral 700 Output: Stool 600 Other: Voiding Method Toilet Toilet Toilet # Voids 3 2 3 - Exam On physical examination, patient appears comfortable in no apparent distress. HEAD: Normocephalic, atraumatic. EYES: No scleral icterus. No conjunctival injection. MOUTH: No lesions, tongue midline. NECK: Trachea midline, no gross abnormalities. CHEST: Clear to auscultation with no wheezing or rhonchi appreciated. HEART: S1-S2 appreciated. ABDOMEN: Soft, obese, with right-sided abdominal ostomy intact. Bowel sounds are positive. No organomegaly. No guarding or rigidity. EXTREMITIES: No pedal edema. SKIN: No rashes, no jaundice. NEUROLOGIC: Alert and oriented x3. No focal deficits. - Labs CBC & Chem 7: 07/25/19 07:22 07/25/19 07:22 Labs: Abnormal Lab Results - Last 24 Hours (Table) 07/24/19 07/24/19 07/24/19 Range/Units 17:03 18:50 20:21 RBC (3.80-5.40) m/uL Hgb (11.4-16.0) gm/dL Hct (34.0-46.0) % MCV (80.0-100.0) fL RDW (11.5-15.5) % Plt Count (150-450) k/uL Chloride (98-107) mmol/L Carbon Dioxide (22-30) mmol/L Glucose (74-99) mg/dL POC Glucose (mg/dL) 240 H 120 H (75-99) mg/dL Calcium (8.4-10.2) mg/dL Total Bilirubin (0.2-1.3) mg/dL AST (14-36) U/L Alkaline Phosphatase (38-126) U/L Ammonia (<30) umol/L Troponin I 0.045 H* (0.000-0.034) ng/mL Total Protein (6.3-8.2) g/dL Albumin (3.5-5.0) g/dL 07/25/19 07/25/19 07/25/19 Range/Units 00:49 07:17 07:22 RBC (3.80-5.40) m/uL Hgb (11.4-16.0) gm/dL Hct (34.0-46.0) % MCV (80.0-100.0) fL RDW (11.5-15.5) % Plt Count (150-450) k/uL Chloride (98-107) mmol/L Carbon Dioxide (22-30) mmol/L Glucose (74-99) mg/dL POC Glucose (mg/dL) 212 H (75-99) mg/dL Calcium (8.4-10.2) mg/dL Total Bilirubin (0.2-1.3) mg/dL AST (14-36) U/L Alkaline Phosphatase (38-126) U/L Ammonia 32 H (<30) umol/L Troponin I 0.051 H* (0.000-0.034) ng/mL Total Protein (6.3-8.2) g/dL Albumin (3.5-5.0) g/dL 07/25/19 07/25/19 07/25/19 Range/Units 07:22 07:22 07:22 RBC 2.86 L (3.80-5.40) m/uL Hgb 9.9 L D (11.4-16.0) gm/dL Hct 30.1 L (34.0-46.0) % MCV 105.5 H (80.0-100.0) fL RDW 15.7 H (11.5-15.5) % Plt Count 71 L (150-450) k/uL Chloride 112 H (98-107) mmol/L Carbon Dioxide 21 L (22-30) mmol/L Glucose 188 H (74-99) mg/dL POC Glucose (mg/dL) (75-99) mg/dL Calcium 8.0 L (8.4-10.2) mg/dL Total Bilirubin 1.4 H (0.2-1.3) mg/dL AST 61 H (14-36) U/L Alkaline Phosphatase 226 H (38-126) U/L Ammonia (<30) umol/L Troponin I 0.053 H* (0.000-0.034) ng/mL Total Protein 5.1 L (6.3-8.2) g/dL Albumin 2.0 L (3.5-5.0) g/dL 07/25/19 Range/Units 12:30 RBC (3.80-5.40) m/uL Hgb (11.4-16.0) gm/dL Hct (34.0-46.0) % MCV (80.0-100.0) fL RDW (11.5-15.5) % Plt Count (150-450) k/uL Chloride (98-107) mmol/L Carbon Dioxide (22-30) mmol/L Glucose (74-99) mg/dL POC Glucose (mg/dL) 119 H (75-99) mg/dL Calcium (8.4-10.2) mg/dL Total Bilirubin (0.2-1.3) mg/dL AST (14-36) U/L Alkaline Phosphatase (38-126) U/L Ammonia (<30) umol/L Troponin I (0.000-0.034) ng/mL Total Protein (6.3-8.2) g/dL Albumin (3.5-5.0) g/dL Microbiology - Last 24 Hours (Table) 07/22/19 01:04 Urine Culture - Final Urine,Voided Enterococcus faecium VRE Assessment and Plan (1) Cirrhosis of liver with ascites Narrative/Plan: 73 year female with a history of hepatocellular carcinoma status post chemoembolization, underlying nonalcoholic liver cirrhosis, portal hypertension and ascites paracentesis, diverticular disease with ileostomy placement, chronic abdominal pain, chronic kidney disease who presents to the hospital presented to the hospital due to confusion and altered mental status. Ammonia found to be 47 on presentation. Currently mentation is improved. Suspicion is for noncompliance with medications in the outpatient setting. No signs or symptoms of GI bleeding or infection at this time. Current Visit: No Status: Acute Code(s): K74.60 - UNSPECIFIED CIRRHOSIS OF LIVER; R18.8 - OTHER ASCITES SNOMED Code(s): 35982752 (2) Change in mental status Current Visit: Yes Status: Acute Code(s): R41.82 - ALTERED MENTAL STATUS, UNSPECIFIED SNOMED Code(s): 424591317 (3) Abdominal pain Current Visit: No Status: Acute Priority: High Code(s): R10.9 - UNSPECIFIED ABDOMINAL PAIN SNOMED Code(s): 77576224 (4) Colostomy in place Current Visit: No Status: Acute Code(s): Z93.3 - COLOSTOMY STATUS SNOMED Code(s): 666488371 (5) Hepatic encephalopathy Current Visit: No Status: Acute Code(s): K72.90 - HEPATIC FAILURE, UNSPECIFIED WITHOUT COMA SNOMED Code(s): 83654314 Plan: Supportive care Okay for sodium restricted diet Dicyclomine to 20 mg 4 times a day Continue lactulose 3 times a day Continue Xifaxan therapy Thank you for allowing us to participate in the care of this patient we will co laure to follow
[2019-07-25 17:14] LABS: Glucose,Whole Blood 139 mg/dL (75-99)
[2019-07-25] MEDS: PANTOPRAZOLE 40 MG TABLET PO SCH (20:17)
[2019-07-25 20:57] LABS: Glucose,Whole Blood 96 mg/dL (75-99)
--- NOTE | 2019-07-25 23:09 | P.PN ---
Subjective Progress Note Date: 07/25/19 73-year-old woman presents to the emergency center because of worsening mental status. The patient's son in the Emergency Ctr. related the patient's behavior began to deteriorate. She started to bizarre things and couldn't remember things that she was doing. He became concerned and constantly the patient was brought to the emergency center for further evaluation. She is in no history of hepatocellular carcinoma, she has difficulties with hepatic function and often has an elevated ammonia. 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 coli infections. She at this point in time apparently is improved with coming to Hospital having hydration and she's been treated with refix seen in lactulose and her ammonia level has improved a bit. She does complain of some generalized abdominal pain. She relates that she often has urinary urgency that comes and goes. She does take diuretic therapy. She is still somewhat confused and is not a good historian. 07/25/2019 the patient is with little pattern changer status. Although her mentation seems to be slightly improved. Objective - Vital Signs Vital signs: Vital Signs Temp 97.4 F L 07/25/19 19:52 Pulse 55 L 07/25/19 19:52 Resp 16 07/25/19 19:52 BP 95/53 07/25/19 19:52 Pulse Ox 98 07/25/19 19:52 Intake & Output 07/25/19 07/25/19 07/26/19 06:59 18:59 06:59 Intake Total 700 Output Total 600 Balance 700 -600 Intake: Oral 700 Output: Stool 600 Other: Voiding Method Toilet Toilet Toilet # Voids 2 3 - Exam 73-year-old woman who is resting somewhat quietly at this this time HEENT: Anicteric conjunctiva are pink and moist nasal mucosa grossly intact without significant lesions, there is no thrush. Poor dentition Neck: The neck is supple without significant lymphadenopathy or thyromegaly. Lungs: Symmetrical air entry few basilar crackles no bronchial sounds Heart: Irregular with an audible S1 and S2 soft S4 no severe murmur click or rub PMI was nondisplaced Abdomen: Obese, Positive bowel sounds soft , is somewhat generalized lower quadrant abdominal tenderness on exam. The patient does have the colostomy in place that seems to be functioning well, she does have a peristomal hernia which is not excessive at this time. There is no palpable hepatosplenomegaly although she complains of some tenderness in the right upper quadrant on exam. There is no palpable mass there was no guarding or rebound there was no suprapubic tenderness. Extremities: The upper extremities have excellent pulses they are symmetric, no significant petechiae or telangiectasia. No splinter hemorrhages were noted. Lower extremities have 2+ pitting edema but no open ulcerations are seen Neuro: The patient was arousable somewhat interactive, poor historian but was able to move upper and lower extremities throughout the exam - Labs CBC & Chem 7: 07/25/19 07:22 07/25/19 07:22 Labs: Abnormal Lab Results - Last 24 Hours (Table) 07/25/19 07/25/19 07/25/19 Range/Units 00:49 07:17 07:22 RBC (3.80-5.40) m/uL Hgb (11.4-16.0) gm/dL Hct (34.0-46.0) % MCV (80.0-100.0) fL RDW (11.5-15.5) % Plt Count (150-450) k/uL Chloride (98-107) mmol/L Carbon Dioxide (22-30) mmol/L Glucose (74-99) mg/dL POC Glucose (mg/dL) 212 H (75-99) mg/dL Calcium (8.4-10.2) mg/dL Total Bilirubin (0.2-1.3) mg/dL AST (14-36) U/L Alkaline Phosphatase (38-126) U/L Ammonia 32 H (<30) umol/L Troponin I 0.051 H* (0.000-0.034) ng/mL Total Protein (6.3-8.2) g/dL Albumin (3.5-5.0) g/dL 07/25/19 07/25/19 07/25/19 Range/Units 07:22 07:22 07:22 RBC 2.86 L (3.80-5.40) m/uL Hgb 9.9 L D (11.4-16.0) gm/dL Hct 30.1 L (34.0-46.0) % MCV 105.5 H (80.0-100.0) fL RDW 15.7 H (11.5-15.5) % Plt Count 71 L (150-450) k/uL Chloride 112 H (98-107) mmol/L Carbon Dioxide 21 L (22-30) mmol/L Glucose 188 H (74-99) mg/dL POC Glucose (mg/dL) (75-99) mg/dL Calcium 8.0 L (8.4-10.2) mg/dL Total Bilirubin 1.4 H (0.2-1.3) mg/dL AST 61 H (14-36) U/L Alkaline Phosphatase 226 H (38-126) U/L Ammonia (<30) umol/L Troponin I 0.053 H* (0.000-0.034) ng/mL Total Protein 5.1 L (6.3-8.2) g/dL Albumin 2.0 L (3.5-5.0) g/dL 07/25/19 07/25/19 Range/Units 12:30 17:10 RBC (3.80-5.40) m/uL Hgb (11.4-16.0) gm/dL Hct (34.0-46.0) % MCV (80.0-100.0) fL RDW (11.5-15.5) % Plt Count (150-450) k/uL Chloride (98-107) mmol/L Carbon Dioxide (22-30) mmol/L Glucose (74-99) mg/dL POC Glucose (mg/dL) 119 H 139 H (75-99) mg/dL Calcium (8.4-10.2) mg/dL Total Bilirubin (0.2-1.3) mg/dL AST (14-36) U/L Alkaline Phosphatase (38-126) U/L Ammonia (<30) umol/L Troponin I (0.000-0.034) ng/mL Total Protein (6.3-8.2) g/dL Albumin (3.5-5.0) g/dL Microbiology - Last 24 Hours (Table) 07/22/19 01:04 Urine Culture - Final Urine,Voided Enterococcus faecium VRE Laboratory Results WBC 3.8 k/uL (3.8-10.6) 07/25/19 07:22 RBC 2.86 m/uL (3.80-5.40) L 07/25/19 07:22 Hgb 9.9 gm/dL (11.4-16.0) L D 07/25/19 07:22 Hct 30.1 % (34.0-46.0) L 07/25/19 07:22 MCV 105.5 fL (80.0-100.0) H 07/25/19 07:22 MCH 34.7 pg (25.0-35.0) 07/25/19 07:22 MCHC 32.9 g/dL (31.0-37.0) 07/25/19 07:22 RDW 15.7 % (11.5-15.5) H 07/25/19 07:22 Plt Count 71 k/uL (150-450) L 07/25/19 07:22 Neutrophils % 56 % 07/25/19 07:22 Lymphocytes % 27 % 07/25/19 07:22 Monocytes % 8 % 07/25/19 07:22 Eosinophils % 5 % 07/25/19 07:22 Basophils % 1 % 07/25/19 07:22 Neutrophils # 2.1 k/uL (1.3-7.7) 07/25/19 07:22 Lymphocytes # 1.0 k/uL (1.0-4.8) 07/25/19 07:22 Monocytes # 0.3 k/uL (0-1.0) 07/25/19 07:22 Eosinophils # 0.2 k/uL (0-0.7) 07/25/19 07:22 Basophils # 0.0 k/uL (0-0.2) 07/25/19 07:22 Manual Slide Review Performed 07/24/19 07:52 Large Platelets Present 07/24/19 07:52 Polychromasia Present 07/24/19 07:52 Macrocytosis Moderate 07/25/19 07:22 PT 12.7 sec (9.0-12.0) H 07/22/19 00:52 INR 1.2 (<1.2) H 07/22/19 00:52 APTT 20.6 sec (22.0-30.0) L 07/22/19 00:52 Sodium 137 mmol/L (137-145) 07/25/19 07:22 Potassium 5.0 mmol/L (3.5-5.1) 07/25/19 07:22 Chloride 112 mmol/L (98-107) H 07/25/19 07:22 Carbon Dioxide 21 mmol/L (22-30) L 07/25/19 07:22 Anion Gap 4 mmol/L 07/25/19 07:22 BUN 13 mg/dL (7-17) 07/25/19 07:22 Creatinine 0.98 mg/dL (0.52-1.04) 07/25/19 07:22 Est GFR (CKD-EPI)AfAm 67 (>60 ml/min/1.73 sqM) 07/25/19 07:22 Est GFR (CKD-EPI)NonAf 58 (>60 ml/min/1.73 sqM) 07/25/19 07:22 Glucose 188 mg/dL (74-99) H 07/25/19 07:22 POC Glucose (mg/dL) 96 mg/dL (75-99) 07/25/19 20:45 POC Glu [employer] ID Lia Elena 07/25/19 20:45 Calcium 8.0 mg/dL (8.4-10.2) L 07/25/19 07:22 Total Bilirubin 1.4 mg/dL (0.2-1.3) H 07/25/19 07:22 AST 61 U/L (14-36) H 07/25/19 07:22 ALT 35 U/L (9-52) 07/25/19 07:22 Alkaline Phosphatase 226 U/L (38-126) H 07/25/19 07:22 Ammonia 32 umol/L (<30) H 07/25/19 07:22 Troponin I 0.053 ng/mL (0.000-0.034) H* 07/25/19 07:22 Total Protein 5.1 g/dL (6.3-8.2) L 07/25/19 07:22 Albumin 2.0 g/dL (3.5-5.0) L 07/25/19 07:22 Urine Color Yellow 07/22/19 01:04 Urine Appearance Cloudy (Clear) H 07/22/19 01:04 Urine pH 6.0 (5.0-8.0) 07/22/19 01:04 Ur Specific [place] 1.022 (1.001-1.035) 07/22/19 01:04 Urine Protein 1+ (Negative) H 07/22/19 01:04 Urine Glucose (UA) Negative (Negative) 07/22/19 01:04 Urine Ketones Trace (Negative) H 07/22/19 01:04 Urine Blood Negative (Negative) 07/22/19 01:04 Urine Nitrite Negative (Negative) 07/22/19 01:04 Urine Bilirubin Negative (Negative) 07/22/19 01:04 Urine Urobilinogen <2.0 mg/dL (<2.0) 07/22/19 01:04 Ur Leukocyte Esterase Moderate (Negative) H 07/22/19 01:04 Urine RBC 3 /hpf (0-5) 07/22/19 01:04 Urine WBC 32 /hpf (0-5) H 07/22/19 01:04 Ur Squamous Epith Cells 32 /hpf (0-4) H 07/22/19 01:04 Urine Bacteria Rare /hpf (None) H 07/22/19 01:04 Hyaline Casts 85 /lpf (0-2) H 07/22/19 01:04 Urine Mucus Occasional /hpf (None) H 07/22/19 01:04 Urine Opiates Screen Detected (NotDetected) H 07/22/19 01:04 Ur Oxycodone Screen Not Detected (NotDetected) 07/22/19 01:04 Urine Methadone Screen Not Detected (NotDetected) 07/22/19 01:04 Ur Propoxyphene Screen Not Detected (NotDetected) 07/22/19 01:04 Ur Barbiturates Screen Not Detected (NotDetected) 07/22/19 01:04 U Tricyclic Antidepress Not Detected (NotDetected) 07/22/19 01:04 Ur Phencyclidine Scrn Not Detected (NotDetected) 07/22/19 01:04 Ur Amphetamines Screen Not Detected (NotDetected) 07/22/19 01:04 U Methamphetamines Scrn Not Detected (NotDetected) 07/22/19 01:04 U Benzodiazepines Scrn Not Detected (NotDetected) 07/22/19 01:04 Urine Cocaine Screen Not Detected (NotDetected) 07/22/19 01:04 U Marijuana (THC) Screen Not Detected (NotDetected) 07/22/19 01:04 Microbiology 07/22/19 01:04 Urine,Voided Urine Culture - Final Enterococcus faecium VRE Assessment and Plan (1) Change in mental status Narrative/Plan: 73-year-old woman who has a history of hepatocellular carcinoma and resultant cirrhosis and some ascites presents to hospital with worsening mental status. Her ammonia level was elevated with treatment is started having some clearing of her mentation although was still with some confusion. However is comfortable except she does have lower quadrant abdominal tenderness which apparently has been present on prior exams. She does not have suprapubic tenderness She does not have flank tenderness. There is evidence of urine culture with VRE which she has been colonized with. At this time she does not have leukocytosis, fever or other evidence of infection at this time. The altered mental status is likely in the basis of her underlying hepatocellular disease and with this treatment is improving. Would not utilize antibiotic therapy at this time in that she does not appear to have active infection but just colonization of her urinary tract with the VRE. 07/25/2019 which are has verified the VRE, the patient is colonized and would not initiate any antibiotic therapy at this time. Treatment of her other medical troubles may allow some improvement of her mental status. Current Visit: Yes Status: Acute Code(s): R41.82 - ALTERED MENTAL STATUS, UNSPECIFIED SNOMED Code(s): 962499614 (2) Colonization with VRE (vancomycin-resistant enterococcus) Current Visit: Yes Status: Acute Code(s): Z22.338 - CARRIER OF OTHER STREPTOCOCCUS SNOMED Code(s): 877559579 (3) Chronic abdominal pain Current Visit: Yes Status: Acute Code(s): R10.9 - UNSPECIFIED ABDOMINAL PAIN; G89.29 - OTHER CHRONIC PAIN SNOMED Code(s): 863350654 (4) Cirrhosis of liver with ascites Current Visit: No Status: Acute Code(s): K74.60 - UNSPECIFIED CIRRHOSIS OF LIVER; R18.8 - OTHER ASCITES SNOMED Code(s): 15224853
[2019-07-26 05:54] VITALS: BP 102/54; PULSE 66; RESP 17; TEMP 97.6
[2019-07-26 07:28] LABS: Glucose,Whole Blood 150 mg/dL (75-99)
[2019-07-26] MEDS: METOPROLOL TARTRATE 12.5 MG TAB PO SCH (07:40)
[2019-07-26] MEDS: LACTULOSE 20 GM/30 ML CUP PO SCH (07:41)
[2019-07-26] MEDS: NYSTATIN 100,000 UNIT/ML SUSP 500,000 UNIT/5 ML CUP PO SCH (07:41)
[2019-07-26] MEDS: SUCRALFATE 1 GM TAB PO SCH (07:42)
[2019-07-26] MEDS: RIFAXIMIN 550 MG TABLET PO SCH (07:42)
[2019-07-26] MEDS: MORPHINE SULFATE ER 15 MG TABLET PO SCH (07:42)
[2019-07-26] MEDS: ISOSORBIDE MONONITRATE ER 30 MG TAB.ER.24H PO SCH (07:43)
[2019-07-26] MEDS: DICYCLOMINE 20 MG TAB PO SCH (07:43)
[2019-07-26] MEDS: CHOLECALCIFEROL 1,000 UNIT TAB PO SCH (07:43)
[2019-07-26] MEDS: buPROPion SR 150 MG TABLET.ER PO SCH (07:43)
[2019-07-26] MEDS: INSULIN ASPART (NovoLOG) 100 UNIT/ML VIAL SQ SCH (07:43)
[2019-07-26] MEDS: FERROUS SULFATE 325 MG TAB PO SCH (07:43)
[2019-07-26 08:18] LABS: Albumin 2.2 g/dL (3.5-5.0); Basophils % (A) 1 %; Calcium 8.1 mg/dL (8.4-10.2); Eosinophils # (A) 0.2 k/uL (0-0.7); Eosinophils % (A) 5 %; HCT 31.6 % (34.0-46.0); HGB 10.4 gm/dL (11.4-16.0); Lymphocytes % (A) 26 %; MCH 35.3 pg (25.0-35.0); MCV 107.1 fL (80.0-100.0); Macrocytosis Moderate; Monocytes # (A) 0.3 k/uL (0-1.0); Monocytes % (A) 7 %; Neutrophils # (A) 2.2 k/uL (1.3-7.7); Neutrophils % (A) 58 %; Potassium 4.6 mmol/L (3.5-5.1); RBC 2.95 m/uL (3.80-5.40); RDW 15.8 % (11.5-15.5); Total Bilirubin 1.9 mg/dL (0.2-1.3); Total Protein 5.7 g/dL (6.3-8.2); WBC 3.9 k/uL (3.8-10.6)
[2019-07-26 08:19] LABS: Platelet Count 76 k/uL (150-450)
--- NOTE | 2019-07-26 10:48 | P.DS ---
Providers Date of admission: 07/25/19 17:56 Expected date of discharge: 07/26/19 Attending physician: Artemio Lea Consults: 07/22/19 12:45 Consult Physician Routine Consulting Provider: Carley Valverde Consult Reason/Comments: liver cirrhosis Do you want consulting provider notified?: Yes 07/22/19 13:48 Consult Physician Routine Consulting Provider: Jaylene Esparza Consult Reason/Comments: urinary tract infection Do you want consulting provider notified?: Yes 07/25/19 10:47 Consult Physician Routine Consulting Provider: Yuri Keith Consult Reason/Comments: chest pain Do you want consulting provider notified?: Yes Primary care physician: Gilma Martinez Hospital Course: Discharge diagnosis #1 acute mental status changes. Resolved #2 elevated ammonia level at 47. Patient maintained on lactulose and Xifaxan. Repeat ammonia 38 #3 mild elevation in troponin level #4 nausea and vomiting. KUB x-ray completed showing no acute process GI services following. Per GI services Bentyl has been increased #5 known history of nonalcoholic liver cirrhosis #6 history of hepatocellular carcinoma #7 history of chronic kidney disease stage III #8 history of diverticulitis with ileostomy placement #9 history of insulin-dependent diabetes mellitus #10 history of depression #11. Colonization of VRE. Patient was evaluated by infectious disease. 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 Nystatin has been ordered 13. Chest pain. Troponin 0.045 0.051 0.053. EKG showing normal sinus rhythm with right bundle branch block. Per cardiology services Imdur has been added patient to follow-up outpatient with Dr. Briones for further management Hospital course Charlene valladares is a 73-year-old female who presented to [facility] emergency room with a chief complaint of confusion and altered mental status she was also having episodes of vomiting, she was evaluated in the emergency room her ammonia level was elevated at 47, she also had evidence of urinary tract infection, she was admitted to medical floor for further evaluat ion and treatment, chest x-ray done in the emergency room did not reveal any acute abnormality, patient had multiple similar admissions in the last 6 months she had computed tomography scan of the brain without contrast 4 times in the last 6 months and no acute abnormality was evident on any of the CT scans. Computed tomography scan of the brain was not done during this admission. Patient has a known history of liver cancer she also has known history of hypertension, diabetes mellitus, coronary artery disease with myocardial infarction, chronic kidney disease, history of nonsustained V. tach, liver cirrhosis with chronic elevation in ammonia level with episodes of mental status changes. On 07/23/2019 patient was seen and examined on the medical floor she is more alert and oriented she is complaining of more abdominal pain mostly in the right lower quadrants around the ileostomy area she is still complaining of feeling weak and tired otherwise she denies any complaints there is no fever or chills no headache or dizziness no chest pain no shortness of breath no cough no nausea or vomiting no diarrhea no burning was urination no frequency or urgency and no hematuria On 07/24/2019 patient is alert and oriented feeling improved from yesterday. 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 X-ray of abdomen completed showing nonacute abdomen no change. At this time patient denies any chest pain or shortness of breath nausea is improving. Patient denies any urinary burning or frequency. On 07/25/2019 she is feeling improved from yesterday. Patient is complaining of chest pain today troponins completed. Will consult cardiology services. Patient reports improvement with nausea and vomiting. Patient denies cough or shortness of breath. Patient encouraged to continue working with physical therapy. On 07/26/2019 patient is feeling improved. Patient is awake alert and oriented 3. Patient is eager to go home. Patient was evaluated by cardiology services case discussed no need for further workup. Imdur has been added patient to follow-up outpatient with Dr. Briones. Urine growing VRE blood per infectious disease this is colonization no need for antibiotics at this time. Patient denies chest pain or shortness of breath. Patient denies nausea vomiting or diarrhea. Patient denies any urinary burning or frequency. Patient advised again on the importance of following up outpatient with PCP and consulting providers for management of care I performed an examination of the patient and discussed their management with the Nurse Practitioner. I have reviewed the Nurse Practitioner's notes and agree with the documented findings and plan of care Patient Condition at Discharge: Stable Plan - Discharge Summary New Discharge Prescriptions: New Isosorbide Mononitrate ER [Imdur] 30 mg PO DAILY 30 Days #30 tab.er.24h Nystatin 100,000 Unit/ml Susp [Mycostatin Oral Susp] 500,000 unit PO QID 7 Days #21 cup Rifaximin [Xifaxan] 550 mg PO BID tablet Dicyclomine [Bentyl] 20 mg PO QID 30 Days #120 tab Continue Sucralfate [Carafate] 1 gm PO QID Omeprazole [PriLOSEC] 20 mg PO BID Insulin Regular, Human [NovoLIN R] 10 unit SQ AC-TID Cholecalciferol [Vitamin D3 (25 Mcg = 1000 Iu)] 4,000 unit PO DAILY Ferrous Sulfate [Iron (65 MG Elemental)] 325 mg PO BID Insulin NPH [humuLIN N] 18 unit SQ BID vial Morphine Sulfate [Ms Contin] 15 mg PO BID Ondansetron Odt [Zofran ODT] 8 mg SL DAILY PRN PRN Reason: Nausea Metoprolol Tartrate [Lopressor] 6.25 mg PO DAILY buPROPion HCL [Wellbutrin SR] 150 mg PO BID clonazePAM [KlonoPIN] 0.5 mg PO Q8HR PRN PRN Reason: Anxiety Lactulose [Cephulac] 30 gm PO TID Discontinued Dicyclomine [Bentyl] 10 mg PO TID PRN PRN Reason: Gi Upset Discharge Medication List Omeprazole [PriLOSEC] 20 mg PO BID 10/23/18 [History] Sucralfate [Carafate] 1 gm PO QID 10/23/18 [History] Insulin Regular, Human [NovoLIN R] 10 unit SQ AC-TID 10/24/18 [History] Cholecalciferol [Vitamin D3 (25 Mcg = 1000 Iu)] 4,000 unit PO DAILY 01/16/19 [History] Ferrous Sulfate [Iron (65 MG Elemental)] 325 mg PO BID 01/31/19 [History] Insulin NPH [humuLIN N] 18 unit SQ BID vial 02/06/19 [Rx] Morphine Sulfate [Ms Contin] 15 mg PO BID 05/15/19 [History] Metoprolol Tartrate [Lopressor] 6.25 mg PO DAILY 06/12/19 [History] Ondansetron Odt [Zofran ODT] 8 mg SL DAILY PRN 06/12/19 [History] buPROPion HCL [Wellbutrin SR] 150 mg PO BID 06/12/19 [History] clonazePAM [KlonoPIN] 0.5 mg PO Q8HR PRN 06/12/19 [History] Lactulose [Cephulac] 30 gm PO TID 07/22/19 [History] Dicyclomine [Bentyl] 20 mg PO QID 30 Days #120 tab 07/26/19 [Rx] Isosorbide Mononitrate ER [Imdur] 30 mg PO DAILY 30 Days #30 tab.er.24h 07/26/19 [Rx] Nystatin 100,000 Unit/ml Susp [Mycostatin Oral Susp] 500,000 unit PO QID 7 Days #21 cup 07/26/19 [Rx] Rifaximin [Xifaxan] 550 mg PO BID tablet 07/26/19 [Rx] Follow up Appointment(s)/Referral(s): Ernesto Morales MD [STAFF PHYSICIAN] - 1 Week [facility], [NON-STAFF] - Artemio Lea MD [STAFF PHYSICIAN] - 1 Week Ananth Francois MD [STAFF PHYSICIAN] - 1 Week Patient Instructions/Handouts: Urinary Tract Infection in Women (DC) Activity/Diet/Wound Care/Special Instructions: Activity as tolerated Diet heart healthy Discharge Disposition: HOME SELF-CARE
--- NOTE | 2019-07-26 11:04 | CDI ---
Documentation Clarification Form Date: 07/26/2019 10:46:37 AM From: Nisreen Null RN, CCDS Admit Date: 07/25/2019 5:56:00 PM Patient Name: Charlene Keenan Visit Number: [id number] Discharge Date: ATTENTION: The Clinical Documentation Specialists (CDI) and [facility] Coding Staff appreciate your assistance in clarifying documentation. Please respond to the clarification below the line at the bottom and electronically sign. The CDI & [facility] Coding staff will review the response and follow-up if needed. Please note: Queries are made part of the Legal Health Record. If you have any questions, please contact the author of this message via ITS. Dr. Artemio Lea Thrombocytopenia is documented in the ongoing progress notes starting on and further clarification is needed. Patient history/risk factors: Nonalcoholic liver cirrhosis, Hepatocelular liver cancer, Hepatic Encephalopathy, CKD stage III, Ascites, IDDM type II Clinical Indicators: 73-year-old female present with mental status changes and abnormal labs showing elevated ammonia levels and low platelet count. Platelet count: 100, 81, 71 76 Other Clinical Indicators: History of hepatocellular liver cancer Treatment: Monitor CBC DVT prophylaxis SCDs due to thrombocytopenia Hold ASA In your professional opinion, can the type and etiology of thrombocytopenia be further specified as one of the following, if known? Primary Thrombocytopenia Secondary Thrombocytopenia Thrombocytopenia due to chemotherapy Other, please specify Unable to determine (Last Revision: August 2017) secondary thrombocytopenia to known liver disease MTDD
== END 2019-07-26 11:39 | disposition home or self-care (01) | DRG 313 ==
LOC: EC 00:17 → 4MS4W 03:33 → OBSVTOIN 07-25 17:56
PROVIDERS: ADMIT Internal Medicine; ATTEND Internal Medicine
DX: R07.89 Other chest pain (principal); K76.6 Portal hypertension; N39.0 Urinary tract infection, site not specified; R18.8 Other ascites; K74.60 Unspecified cirrhosis of liver; E11.22 Type 2 diabetes mellitus with diabetic chronic kidney disease; N18.3 Chronic kidney disease, stage 3 (moderate); B37.9 Candidiasis, unspecified; D69.59 Other secondary thrombocytopenia; B95.2 Enterococcus as the cause of diseases classified elsewhere; D64.9 Anemia, unspecified; D69.6 Thrombocytopenia, unspecified; F32.9 Major depressive disorder, single episode, unspecified; F41.9 Anxiety disorder, unspecified; I12.9 Hypertensive chronic kidney disease with stage 1 through stage 4 chronic kidney disease, or unspecified chronic kidney disease; I25.10 Atherosclerotic heart disease of native coronary artery without angina pectoris; I35.0 Nonrheumatic aortic (valve) stenosis; I45.10 Unspecified right bundle-branch block; Z16.21 Resistance to vancomycin; I25.2 Old myocardial infarction; Z79.4 Long term (current) use of insulin; Z82.49 Family history of ischemic heart disease and other diseases of the circulatory system; Z85.05 Personal history of malignant neoplasm of liver; Z86.14 Personal history of Methicillin resistant Staphylococcus aureus infection; Z87.11 Personal history of peptic ulcer disease; Z87.440 Personal history of urinary (tract) infections; Z87.891 Personal history of nicotine dependence; Z90.710 Acquired absence of both cervix and uterus; Z92.21 Personal history of antineoplastic chemotherapy; Z93.3 Colostomy status; Z88.5 Allergy status to narcotic agent; Z88.0 Allergy status to penicillin; Z88.8 Allergy status to other drugs, medicaments and biological substances
CPT/HCPCS: 36415; 71046; 74018; 80053; 80306; 81001; 82140; 84484; 85025; 85610; 85730; 87077; 87086; 87186; 93005; 96365; 99285

== ENCOUNTER 2019-07-29 16:33 | Inpatient (IN) | payer MEDICARE ==
[2019-07-29] MEDS ORDERED: MORPHINE SULFATE 2 MG/ML SYRINGE IVP STA (17:46)
[2019-07-29] MEDS ORDERED: SODIUM CHLORIDE 0.9% 500 ML 500 ML IV STA (17:46)
[2019-07-29] MEDS ORDERED: ONDANSETRON 4 MG/2 ML VIAL IVP STA (17:46)
[2019-07-29 18:00] LABS: HCT 34.3 % (34.0-46.0); HGB 11.1 gm/dL (11.4-16.0); MCH 34.1 pg (25.0-35.0); MCHC 32.5 g/dL (31.0-37.0); Macrocytosis Moderate; Mean Platelet Volume 9.2; RBC 3.26 m/uL (3.80-5.40); RDW 15.2 % (11.5-15.5); WBC 3.6 k/uL (3.8-10.6)
[2019-07-29 18:03] LABS: Appearance,Urine Clear (Clear); Bacteria,Urine Occasional /hpf; Bilirubin,Urine Negative (Negative); Blood,Urine Negative (Negative); Color,Urine Yellow; Glucose,Urine (UA) Negative (Negative); Hyaline Casts,Urine 19 /lpf (0-2); Ketones,Urine Negative (Negative); Leukocyte Esterase,Urine Small (Negative); Mucus,Urine Rare /hpf; Nitrite,Urine Negative (Negative); Protein,Urine Trace (Negative); RBC,Urine <1 /hpf (0-5); Specific Gravity,Urine 1.021 (1.001-1.035); Squamous Epithelial Cell,Urine 6 /hpf (0-4); Urobilinogen,Urine <2.0 mg/dL (<2.0); WBC,Urine 11 /hpf (0-5)
[2019-07-29 18:10] LABS: ALT 31 U/L (9-52); AST 94 U/L (14-36); African American GFR (CKD) 69 (>60 ml/min/1.73 sqM); Albumin 3.1 g/dL (3.5-5.0); Alkaline Phosphatase 261 U/L (38-126); Amylase 54 U/L (30-110); Anion Gap 7 mmol/L; Blood Urea Nitrogen 15 mg/dL (7-17); Calcium 8.8 mg/dL (8.4-10.2); Carbon Dioxide 19 mmol/L (22-30); Chloride 113 mmol/L (98-107); Glucose 77 mg/dL (74-99); Sodium 139 mmol/L (137-145); Total Bilirubin 3.4 mg/dL (0.2-1.3); Total Protein 7.4 g/dL (6.3-8.2)
[2019-07-29 18:11] LABS: Potassium 4.5 mmol/L (3.5-5.1)
[2019-07-29 18:16] LABS: INR 1.3 (<1.2); Partial Thromboplastin Time 22.2 sec (22.0-30.0); Prothrombin Time 12.9 sec (9.0-12.0)
[2019-07-29 18:19] LABS: Platelet Count 37 k/uL (150-450)
--- NOTE | 2019-07-29 18:34 | XR ---
EXAMINATION TYPE: XR KUB DATE OF EXAM: 07/29/2019 CLINICAL DATA: 73-year-old female with abdominal pain, H COMPARISON: 05/24/2019 FINDINGS: Lung bases are clear. No evidence for free intraperitoneal air. Overall positive bowel gas limits evaluation. No dilated small bowel or differential air-fluid levels . Some colonic gas noted in the right mid abdomen. Surgical material right upper quadrant. Possible 6 mm left renal calculus. Pelvic fluid ligaments. Degenerative changes of both hips. IMPRESSION: 1. Nonspecific, overall nonobstructive bowel gas pattern. No free air. 2. Possible 6 mm left renal calculus.
[2019-07-29 19:04] LABS: Basophils # (M) 0.04 k/uL (0-0.2); Eosinophils # (M) 0.14 k/uL (0-0.7); Lymphocytes # (M) 0.79 k/uL (1.0-4.8); Monocytes # (M) 0.22 k/uL (0-1.0); Neutrophils % (M) 67 %; Nucleated Red Blood Cells 0 /100 WBC (0-0); Total Cells Counted 100
[2019-07-29 19:05] LABS: Anisocytosis (M) Present; Polychromasia Present
--- NOTE | 2019-07-29 19:29 | ED ---
General Adult HPI - General Chief complaint: Recheck/Abnormal Lab/Rx Stated complaint: vomiting, weakness Time Seen by Provider: 07/29/19 17:38 Source: patient, family, RN notes reviewed Mode of arrival: wheelchair Limitations: no limitations - History of Present Illness Initial comments: 73-year-old female with a past medical history of hepatocellular liver cancer, liver cirrhosis, hepatic encephalopathy, urinary tract infections presents to the emergency department for a chief complaint of nausea vomiting upper abdominal pain. Patient states that she was recently released from the hospital for similar complaints. States that that she has got home this has worsened and she is not able to keep down any solids or liquids. He states this is causing her to feel somewhat weak as well. States that they did increase her Bentyl here in the hospital but it did not seem to help. Patient has no other complaints at this time including shortness of breath, chest pain, nausea or vomiting, headache, or visual changes. - Related Data Home Medications Medication Instructions Recorded Confirmed Omeprazole [PriLOSEC] 20 mg PO BID 10/23/18 07/29/19 Sucralfate [Carafate] 1 gm PO ACHS 10/23/18 07/29/19 Insulin Regular, Human [NovoLIN R] 10 unit SQ AC-TID 10/24/18 07/29/19 Cholecalciferol [Vitamin D3 (25 4,000 unit PO DAILY 01/16/19 07/29/19 Mcg = 1000 Iu)] Ferrous Sulfate [Iron (65 MG 325 mg PO BID 01/31/19 07/29/19 Elemental)] Morphine Sulfate [Ms Contin] 15 mg PO BID 05/15/19 07/29/19 Metoprolol Tartrate [Lopressor] 6.25 mg PO DAILY 06/12/19 07/29/19 Ondansetron Odt [Zofran ODT] 8 mg SL DAILY PRN 06/12/19 07/29/19 buPROPion HCL [Wellbutrin SR] 150 mg PO BID 06/12/19 07/29/19 clonazePAM [KlonoPIN] 0.5 mg PO Q8HR PRN 06/12/19 07/29/19 Lactulose [Cephulac] 30 gm PO TID 07/22/19 07/29/19 Previous Rx's Medication Instructions Recorded Insulin NPH [humuLIN N] 18 unit SQ BID vial 02/06/19 Dicyclomine [Bentyl] 20 mg PO QID 30 Days #120 tab 07/26/19 Isosorbide Mononitrate ER [Imdur] 30 mg PO DAILY 30 Days #30 07/26/19 tab.er.24h Nystatin 100,000 Unit/ml Susp 500,000 unit PO QID 7 Days #21 cup 07/26/19 [Mycostatin Oral Susp] Rifaximin [Xifaxan] 550 mg PO BID tablet 07/26/19 Allergies Allergy/AdvReac Type Severity Reaction Status Date / Time amlodipine Allergy Rash/Hives Verified 07/29/19 17:36 oxycodone Allergy Rash/Hives Verified 07/29/19 17:36 Penicillins Allergy Rash/Hives Verified 07/29/19 17:36 hydromorphone [From Dilaudid] AdvReac Mild tactile Verified 07/29/19 17:36 disturbance GREG Inhibitors AdvReac Cough Verified 07/29/19 17:36 sodium dodecyclbenzene Allergy Rash/Hives Uncoded 07/22/19 08:08 sulfonate Review of Systems ROS Statement: Those systems with pertinent positive or pertinent negative responses have been documented in the HPI. ROS Other: All systems not noted in ROS Statement are negative. Past Medical History Past Medical History: Cancer, Diabetes Mellitus, Hypertension, Liver Disease, Myocardial Infarction ([place]), Renal Disease Additional Past Medical History / Comment(s): Hepatocellular liver cancer with chemo immobilization-last time being 2017, ascities with paracentesis's may 2019, nonalcoholic liver cirrhosis, chronic pancytopenia, chronic elevated ammonia levels, hepatic encephalopathy, chronic elevated LFTs, chronic abdominal pain, stomach ulcer, diverticular disease with ileostomy, IDDM type II, iron anemia, CKD stage III, nonsustained vtach, UTI, high ammonia levels Last Myocardial Infarction Date:: unk History of Any Multi-Drug Resistant Organisms: MRSA, VRE Date of last positivie culture/infection: 07/22/19- VRE; 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 Past Anesthesia/Blood Transfusion Reactions: No Reported Reaction Past Psychological History: Anxiety, Depression Smoking Status: Former smoker Past Alcohol Use History: None Reported Past Drug Use History: None Reported - Past Family History Mother History Unknown: Yes Family Medical History: Congestive Heart Failure (CHF) Additional Family Medical History / Comment(s): Mother is 94 yrs old. Father Family Medical History: Chest Pain / Angina Additional Family Medical History / Comment(s): Father is . General Exam Limitations: no limitations General appearance: alert, in no apparent distress Head exam: Present: atraumatic, normocephalic, normal inspection Eye exam: Present: normal appearance, PERRL, EOMI. Absent: scleral icterus, conjunctival injection, periorbital swelling ENT exam: Present: normal exam, mucous membranes moist Neck exam: Present: normal inspection, full ROM. Absent: tenderness, meningismus, lymphadenopathy Respiratory exam: Present: normal lung sounds bilaterally. Absent: respiratory distress, wheezes, rales, rhonchi, stridor Cardiovascular Exam: Present: regular rate, normal rhythm, normal heart sounds. Absent: systolic murmur, diastolic murmur, rubs, gallop, clicks GI/Abdominal exam: Present: soft, tenderness (Epigastric tenderness noted), normal bowel sounds. Absent: distended, guarding, rebound, rigid Neurological exam: Present: alert Psychiatric exam: Present: normal affect, normal mood Course Vital Signs 07/29/19 07/29/19 16:36 18:36 Temperature 98.8 F Pulse Rate 68 63 Respiratory 18 18 Rate Blood Pressure 128/67 138/89 O2 Sat by Pulse 100 100 Oximetry Medical Decision Making - Medical Decision Making 73-year-old female with a past medical history of HCC, hepatic cirrhosis abdominal pain presents to the emergency department for a chief nausea vomiting and upper abdominal pain. States this has been ongoing for over a week. States it worsened when she was at home and she is not able to keep down any solids or liquids. On presentation she does have epigastric tenderness. X-ray negative for any free air. CBC shows hemoglobin of 11.1 which is stable. Platelet count s have decreased from 70s to 37. CMP shows an alkaline phosphatase of 261 which is stable for patient. Total bilirubin has increased from 1.9-3.4 since patient's release from the hospital. Urine shows 11 white blood cells but no obvious evidence of infection. This will be cultured. Discussed with the patient who is not comfortable going home as she is not able to keep anything down with Zofran and increase dose of Bentyl. Discussed case with Dr. Lui who feels patient should be monitored. Case was discussed with Dr Lea who accepts admission. - Lab Data Result diagrams: 07/29/19 17:48 07/29/19 17:48 Lab Results 07/29/19 07/29/19 07/29/19 Range/Units 17:20 17:48 17:48 WBC (3.8-10.6) k/uL RBC (3.80-5.40) m/uL Hgb (11.4-16.0) gm/dL Hct (34.0-46.0) % MCV (80.0-100.0) fL MCH (25.0-35.0) pg MCHC (31.0-37.0) g/dL RDW (11.5-15.5) % Plt Count (150-450) k/uL Neutrophils % (Manual) % Lymphocytes % (Manual) % Monocytes % (Manual) % Eosinophils % (Manual) % Basophils % (Manual) % Neutrophils # (Manual) (1.3-7.7) k/uL Lymphocytes # (Manual) (1.0-4.8) k/uL Monocytes # (Manual) (0-1.0) k/uL Eosinophils # (Manual) (0-0.7) k/uL Basophils # (Manual) (0-0.2) k/uL Nucleated RBCs (0-0) /100 WBC Manual Slide Review Polychromasia Anisocytosis (manual) Macrocytosis PT (9.0-12.0) sec INR (<1.2) APTT (22.0-30.0) sec Sodium 139 (137-145) mmol/L Potassium 4.5 (3.5-5.1) mmol/L Chloride 113 H (98-107) mmol/L Carbon Dioxide 19 L (22-30) mmol/L Anion Gap 7 mmol/L BUN 15 (7-17) mg/dL Creatinine 0.96 (0.52-1.04) mg/dL Est GFR (CKD-EPI)AfAm 69 (>60 ml/min/1.73 sqM) Est GFR (CKD-EPI)NonAf 60 (>60 ml/min/1.73 sqM) Glucose 77 (74-99) mg/dL Calcium 8.8 (8.4-10.2) mg/dL Total Bilirubin 3.4 H (0.2-1.3) mg/dL AST 94 H (14-36) U/L ALT 31 (9-52) U/L Alkaline Phosphatase 261 H (38-126) U/L Ammonia 24 (<30) umol/L Total Protein 7.4 (6.3-8.2) g/dL Albumin 3.1 L (3.5-5.0) g/dL Amylase 54 (30-110) U/L Lipase <10 L (23-300) U/L Urine Color Yellow Urine Appearance Clear (Clear) Urine pH 6.0 (5.0-8.0) Ur Specific [place] 1.021 (1.001-1.035) Urine Protein Trace H (Negative) Urine Glucose (UA) Negative (Negative) Urine Ketones Negative (Negative) Urine Blood Negative (Negative) Urine Nitrite Negative (Negative) Urine Bilirubin Negative (Negative) Urine Urobilinogen <2.0 (<2.0) mg/dL Ur Leukocyte Esterase Small H (Negative) Urine RBC <1 (0-5) /hpf Urine WBC 11 H (0-5) /hpf Ur Squamous Epith Cells 6 H (0-4) /hpf Urine Bacteria Occasional H (None) /hpf Hyaline Casts 19 H (0-2) /lpf Urine Mucus Rare H (None) /hpf 07/29/19 07/29/19 Range/Units 17:48 17:48 WBC 3.6 L (3.8-10.6) k/uL RBC 3.26 L (3.80-5.40) m/uL Hgb 11.1 L (11.4-16.0) gm/dL Hct 34.3 (34.0-46.0) % MCV 105.0 H (80.0-100.0) fL MCH 34.1 (25.0-35.0) pg MCHC 32.5 (31.0-37.0) g/dL RDW 15.2 (11.5-15.5) % Plt Count 37 L D (150-450) k/uL Neutrophils % (Manual) 67 % Lymphocytes % (Manual) 22 % Monocytes % (Manual) 6 % Eosinophils % (Manual) 4 % Basophils % (Manual) 1 % Neutrophils # (Manual) 2.41 (1.3-7.7) k/uL Lymphocytes # (Manual) 0.79 L (1.0-4.8) k/uL Monocytes # (Manual) 0.22 (0-1.0) k/uL Eosinophils # (Manual) 0.14 (0-0.7) k/uL Basophils # (Manual) 0.04 (0-0.2) k/uL Nucleated RBCs 0 (0-0) /100 WBC Manual Slide Review Performed Polychromasia Present Anisocytosis (manual) Present Macrocytosis Moderate PT 12.9 H (9.0-12.0) sec INR 1.3 H (<1.2) APTT 22.2 (22.0-30.0) sec Sodium (137-145) mmol/L Potassium (3.5-5.1) mmol/L Chloride (98-107) mmol/L Carbon Dioxide (22-30) mmol/L Anion Gap mmol/L BUN (7-17) mg/dL Creatinine (0.52-1.04) mg/dL Est GFR (CKD-EPI)AfAm (>60 ml/min/1.73 sqM) Est GFR (CKD-EPI)NonAf (>60 ml/min/1.73 sqM) Glucose (74-99) mg/dL Calcium (8.4-10.2) mg/dL Total Bilirubin (0.2-1.3) mg/dL AST (14-36) U/L ALT (9-52) U/L Alkaline Phosphatase (38-126) U/L Ammonia (<30) umol/L Total Protein (6.3-8.2) g/dL Albumin (3.5-5.0) g/dL Amylase (30-110) U/L Lipase (23-300) U/L Urine Color Urine Appearance (Clear) Urine pH (5.0-8.0) Ur Specific [place] (1.001-1.035) Urine Protein (Negative) Urine Glucose (UA) (Negative) Urine Ketones (Negative) Urine Blood (Negative) Urine Nitrite (Negative) Urine Bilirubin (Negative) Urine Urobilinogen (<2.0) mg/dL Ur Leukocyte Esterase (Negative) Urine RBC (0-5) /hpf Urine WBC (0-5) /hpf Ur Squamous Epith Cells (0-4) /hpf Urine Bacteria (None) /hpf Hyaline Casts (0-2) /lpf Urine Mucus (None) /hpf Disposition Clinical Impression: Thrombocytopenia, Intractable pain, Intractable nausea and vomiting, Hyperbilirubinemia Disposition: ADMITTED IP TO THIS [facility] Condition: Fair Is patient prescribed a controlled substance at d/c from ED?: No Referrals: Gilma Martinez MD [Primary Care Provider] - 1-2 days Time of Disposition: 20:07
[2019-07-29] MEDS ORDERED: NALOXONE 0.4 MG/ML 1 ML VIAL IV PRN (20:07)
[2019-07-29] MEDS: MORPHINE SULFATE 4 MG/ML SYRINGE IV PRN (21:27)
[2019-07-29] MEDS: SODIUM CHLORIDE 0.9% 1,000 ML IV SCH (21:27)
[2019-07-30] MEDS: ISOSORBIDE MONONITRATE ER 30 MG TAB.ER.24H PO SCH ×2 (03:04→08:31)
[2019-07-30 06:47] LABS: Anisocytosis Slight; Basophils % (A) 1 %; Eosinophils # (A) 0.2 k/uL (0-0.7); Eosinophils % (A) 5 %; HCT 32.6 % (34.0-46.0); HGB 10.9 gm/dL (11.4-16.0); Lymphocytes # (A) 1.1 k/uL (1.0-4.8); Lymphocytes % (A) 29 %; MCH 35.7 pg (25.0-35.0); MCHC 33.4 g/dL (31.0-37.0); MCV 106.8 fL (80.0-100.0); Macrocytosis Moderate; Mean Platelet Volume 8.9; Monocytes # (A) 0.3 k/uL (0-1.0); Monocytes % (A) 8 %; Neutrophils # (A) 2.1 k/uL (1.3-7.7); Neutrophils % (A) 55 %; RBC 3.06 m/uL (3.80-5.40); RDW 16.1 % (11.5-15.5); WBC 3.8 k/uL (3.8-10.6)
[2019-07-30 06:48] LABS: Platelet Count 78 k/uL (150-450)
[2019-07-30 07:30] LABS: Albumin 2.2 g/dL (3.5-5.0); Calcium 8.1 mg/dL (8.4-10.2); Total Bilirubin 2.5 mg/dL (0.2-1.3); Total Protein 5.5 g/dL (6.3-8.2)
[2019-07-30 08:03] LABS: Glucose,Whole Blood 90 mg/dL (75-99)
[2019-07-30] MEDS: MORPHINE SULFATE 4 MG/ML SYRINGE IV PRN ×4 (08:13→20:11)
[2019-07-30] MEDS: INSULIN ASPART (NovoLOG) 100 UNIT/ML VIAL SQ SCH ×4 (08:30→21:15)
[2019-07-30] MEDS: DICYCLOMINE 20 MG TAB PO SCH ×4 (08:31→21:13)
[2019-07-30] MEDS: FERROUS SULFATE 325 MG TAB PO SCH ×2 (08:31→21:14)
[2019-07-30] MEDS: clonazePAM 0.5 MG TAB PO PRN (08:31)
[2019-07-30] MEDS: PANTOPRAZOLE 40 MG TABLET PO SCH (08:31)
[2019-07-30] MEDS: RIFAXIMIN 550 MG TABLET PO SCH ×2 (08:32→21:14)
[2019-07-30] MEDS: CHOLECALCIFEROL 1,000 UNIT TAB PO SCH (08:32)
[2019-07-30] MEDS: LACTULOSE 20 GM/30 ML CUP PO SCH ×3 (08:32→21:12)
[2019-07-30] MEDS: buPROPion SR 150 MG TABLET.ER PO SCH ×2 (08:32→21:15)
[2019-07-30] MEDS: MORPHINE SULFATE ER 15 MG TABLET PO SCH ×3 (08:33→21:14)
[2019-07-30] MEDS: SUCRALFATE 1 GM TAB PO SCH ×4 (08:40→21:14)
[2019-07-30] MEDS: INSULIN NPH 300 UNIT/3 ML VIAL SQ SCH ×2 (08:40→21:13)
[2019-07-30] MEDS: ONDANSETRON 4 MG/2 ML VIAL IVP PRN ×2 (08:51→18:15)
[2019-07-30] MEDS: SODIUM CHLORIDE 0.9% 1,000 ML IV SCH ×2 (11:02→21:28)
[2019-07-30 11:15] LABS: Glucose,Whole Blood 133 mg/dL (75-99)
--- NOTE | 2019-07-30 15:32 | P.HPIM ---
History of Present Illness H&P Date: 07/30/19 Chief Complaint: Abdominal pain nausea and vomiting Charlene Keenan is a 73-year-old female well known to my practice who presented to [facility] emergency room with a chief complaint of abdominal pain nausea and vomiting, patient has a known history of liver cancer, she was recently admitted to [facility] with similar symptoms she was seen by gastroenterology and was treated symptomatically and was discharged home, however her symptoms worsened and she decided to come back to emergency room. Patient is complaining of feeling weak and complaining of nausea and vomiting and poor appetite there is no fever or chills no headache or dizziness no chest pain no shortness of breath no cough no diarrhea no burning with urination no frequency or urgency no hematuria weakness or numbness in any of her extremities no change in her vision speech or gait. Past Medical History Past Medical History: Cancer, Diabetes Mellitus, Hypertension, Liver Disease, Myocardial Infarction ([place]), Renal Disease Additional Past Medical History / Comment(s): Hepatocellular liver cancer with chemo immobilization-last time being 2017, ascities with paracentesis's may 2019, nonalcoholic liver cirrhosis, chronic pancytopenia, chronic elevated ammonia levels, hepatic encephalopathy, chronic elevated LFTs, chronic abdominal pain, stomach ulcer, diverticular disease with ileostomy, IDDM type II, iron anemia, CKD stage III, nonsustained vtach, UTI, high ammonia levels Last Myocardial Infarction Date:: unk History of Any Multi-Drug Resistant Organisms: MRSA, VRE Date of last positivie culture/infection: 07/22/19- VRE; 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 Past Anesthesia/Blood Transfusion Reactions: No Reported Reaction Past Psychological History: Anxiety, Depression Additional Psychological History / Comment(s): Reformed smoker. . Retired. No experience. No animal exposures Smoking Status: Never smoker Past Alcohol Use History: None Reported Additional Past Alcohol Use History / Comment(s): started smoking 1962 and quit 1966 Past Drug Use History: None Reported - Past Family History Mother History Unknown: Yes Family Medical History: Congestive Heart Failure (CHF) Additional Family Medical History / Comment(s): Mother is 94 yrs old. Father Family Medical History: Chest Pain / Angina Additional Family Medical History / Comment(s): Father is . Medications and Allergies Home Medications Medication Instructions Recorded Confirmed Type Omeprazole [PriLOSEC] 20 mg PO BID 10/23/18 07/29/19 History Sucralfate [Carafate] 1 gm PO ACHS 10/23/18 07/29/19 History Insulin Regular, Human [NovoLIN R] 10 unit SQ AC-TID 10/24/18 07/29/19 History Cholecalciferol [Vitamin D3 (25 4,000 unit PO DAILY 01/16/19 07/29/19 History Mcg = 1000 Iu)] Ferrous Sulfate [Iron (65 MG 325 mg PO BID 01/31/19 07/29/19 History Elemental)] Insulin NPH [humuLIN N] 18 unit SQ BID vial 02/06/19 07/29/19 Rx Morphine Sulfate [Ms Contin] 15 mg PO BID 05/15/19 07/29/19 History Metoprolol Tartrate [Lopressor] 6.25 mg PO DAILY 06/12/19 07/29/19 History Ondansetron Odt [Zofran ODT] 8 mg SL DAILY PRN 06/12/19 07/29/19 History buPROPion HCL [Wellbutrin SR] 150 mg PO BID 06/12/19 07/29/19 History clonazePAM [KlonoPIN] 0.5 mg PO Q8HR PRN 06/12/19 07/29/19 History Lactulose [Cephulac] 30 gm PO TID 07/22/19 07/29/19 History Dicyclomine [Bentyl] 20 mg PO QID 30 Days #120 tab 07/26/19 07/29/19 Rx Isosorbide Mononitrate ER [Imdur] 30 mg PO DAILY 30 Days #30 07/26/19 07/29/19 Rx tab.er.24h Nystatin 100,000 Unit/ml Susp 500,000 unit PO QID 7 Days #21 cup 07/26/19 07/29/19 Rx [Mycostatin Oral Susp] Rifaximin [Xifaxan] 550 mg PO BID tablet 07/26/19 07/29/19 Rx Allergies Allergy/AdvReac Type Severity Reaction Status Date / Time amlodipine Allergy Rash/Hives Verified 07/29/19 17:36 oxycodone Allergy Rash/Hives Verified 07/29/19 17:36 Penicillins Allergy Rash/Hives Verified 07/29/19 17:36 hydromorphone [From Dilaudid] AdvReac Mild tactile Verified 07/29/19 17:36 disturbance GREG Inhibitors AdvReac Cough Verified 07/29/19 17:36 sodium dodecyclbenzene Allergy Rash/Hives Uncoded 07/22/19 08:08 sulfonate Physical Exam Vitals: Vital Signs Temp Pulse Pulse Resp BP BP Pulse Ox 07/30/19 13:47 97.4 F L 68 17 99/59 99 07/30/19 08:26 60 16 96/60 07/30/19 04:58 98.5 F 55 L 16 102/50 97 07/30/19 00:00 79 20 07/29/19 22:47 98 F 79 20 148/70 96 07/29/19 20:40 67 18 114/59 100 07/29/19 18:36 63 18 138/89 100 07/29/19 16:36 98.8 F 68 18 128/67 100 Intake and Output 07/30/19 07/30/19 07/30/19 06:59 14:59 22:59 Intake Total 1050 Balance 1050 Intake: Intake, IV Titration 450 Amount Sodium Chloride 0.9% 1, 450 000 ml @ 75 mls/hr IV . [id number] [facility] Rx#:[id number] Oral 600 Other: # Voids 1 Narrative patient is alert and oriented 3 in no apparent distress HEENT head normocephalic and atraumatic Neck is supple no JVD no goiter no lymphadenopathy Chest exam reveals a few scattered rhonchi no crackles no wheezing Cardiac exam reveals regular heart sounds no gallops no murmurs Abdomen is soft, with mild diffuse tenderness, mild distention in the abdomen with possible ascites, no organomegaly with normal bowel sounds Extremity exam reveals no edema no cyanosis or clubbing Neurological examination reveals no gross focal deficit Results CBC & Chem 7: 07/30/19 06:27 07/30/19 06:27 Labs: Abnormal Lab Results - Last 24 Hours (Table) 07/29/19 07/29/19 07/29/19 Range/Units 17:20 17:48 17:48 WBC 3.6 L (3.8-10.6) k/uL RBC 3.26 L (3.80-5.40) m/uL Hgb 11.1 L (11.4-16.0) gm/dL Hct (34.0-46.0) % MCV 105.0 H (80.0-100.0) fL MCH (25.0-35.0) pg RDW (11.5-15.5) % Plt Count 37 L D (150-450) k/uL Lymphocytes # (Manual) 0.79 L (1.0-4.8) k/uL PT (9.0-12.0) sec INR (<1.2) Chloride 113 H (98-107) mmol/L Carbon Dioxide 19 L (22-30) mmol/L Glucose (74-99) mg/dL POC Glucose (mg/dL) (75-99) mg/dL Calcium (8.4-10.2) mg/dL Total Bilirubin 3.4 H (0.2-1.3) mg/dL AST 94 H (14-36) U/L Alkaline Phosphatase 261 H (38-126) U/L Total Protein (6.3-8.2) g/dL Albumin 3.1 L (3.5-5.0) g/dL Lipase <10 L (23-300) U/L Urine Protein Trace H (Negative) Ur Leukocyte Esterase Small H (Negative) Urine WBC 11 H (0-5) /hpf Ur Squamous Epith Cells 6 H (0-4) /hpf Urine Bacteria Occasional H (None) /hpf Hyaline Casts 19 H (0-2) /lpf Urine Mucus Rare H (None) /hpf 07/29/19 07/30/19 07/30/19 Range/Units 17:48 06:27 06:27 WBC (3.8-10.6) k/uL RBC 3.06 L (3.80-5.40) m/uL Hgb 10.9 L (11.4-16.0) gm/dL Hct 32.6 L (34.0-46.0) % MCV 106.8 H (80.0-100.0) fL MCH 35.7 H (25.0-35.0) pg RDW 16.1 H (11.5-15.5) % Plt Count 78 L D (150-450) k/uL Lymphocytes # (Manual) (1.0-4.8) k/uL PT 12.9 H (9.0-12.0) sec INR 1.3 H (<1.2) Chloride 117 H (98-107) mmol/L Carbon Dioxide 18 L (22-30) mmol/L Glucose 55 L (74-99) mg/dL POC Glucose (mg/dL) (75-99) mg/dL Calcium 8.1 L (8.4-10.2) mg/dL Total Bilirubin 2.5 H (0.2-1.3) mg/dL AST 68 H (14-36) U/L Alkaline Phosphatase 176 H (38-126) U/L Total Protein 5.5 L (6.3-8.2) g/dL Albumin 2.2 L (3.5-5.0) g/dL Lipase (23-300) U/L Urine Protein (Negative) Ur Leukocyte Esterase (Negative) Urine WBC (0-5) /hpf Ur Squamous Epith Cells (0-4) /hpf Urine Bacteria (None) /hpf Hyaline Casts (0-2) /lpf Urine Mucus (None) /hpf 07/30/19 Range/Units 11:12 WBC (3.8-10.6) k/uL RBC (3.80-5.40) m/uL Hgb (11.4-16.0) gm/dL Hct (34.0-46.0) % MCV (80.0-100.0) fL MCH (25.0-35.0) pg RDW (11.5-15.5) % Plt Count (150-450) k/uL Lymphocytes # (Manual) (1.0-4.8) k/uL PT (9.0-12.0) sec INR (<1.2) Chloride (98-107) mmol/L Carbon Dioxide (22-30) mmol/L Glucose (74-99) mg/dL POC Glucose (mg/dL) 133 H (75-99) mg/dL Calcium (8.4-10.2) mg/dL Total Bilirubin (0.2-1.3) mg/dL AST (14-36) U/L Alkaline Phosphatase (38-126) U/L Total Protein (6.3-8.2) g/dL Albumin (3.5-5.0) g/dL Lipase (23-300) U/L Urine Protein (Negative) Ur Leukocyte Esterase (Negative) Urine WBC (0-5) /hpf Ur Squamous Epith Cells (0-4) /hpf Urine Bacteria (None) /hpf Hyaline Casts (0-2) /lpf Urine Mucus (None) /hpf Thrombosis Risk Factor Assmnt - Choose All That Apply Any of the Below Risk Factors Present?: No Other Risk Factors: Yes Each Risk Factor Represents 2 Points: Age 61-74 years, Malignancy Other congenital or acquired thrombophilia - If yes, enter type in comment: No Thrombosis Risk Factor Assessment Total Risk Factor Score: 4 Thrombosis Risk Factor Assessment Level: Moderate Risk Assessment and Plan Plan: #1 abdominal pain nausea and vomiting #2 poor appetite due to nausea and vomiting #3 underlying history of hepatocellular carcinoma #4 underlying history of liver cirrhosis #5 underlying history of hypertension #6 underlying history of insulin-dependent diabetes mellitus #7 underlying history of depression At this time patient is admitted to medical floor will treat symptomatically, consultation for gastroenterology and oncology was initiated Recheck labs in a.m. with her treatment will depend on clinical course
[2019-07-30 17:13] LABS: Glucose,Whole Blood 131 mg/dL (75-99)
[2019-07-30] MEDS: METOPROLOL TARTRATE 25 MG TAB PO SCH (18:08)
--- NOTE | 2019-07-30 19:55 | CONS ---
CONSULTATION DATE OF DICTATION: July 30, 2019 REQUESTING PHYSICIAN: Dr. Lea and Dr. Martinez. REASON FOR CONSULTATION: Nausea, vomiting, epigastric pain of 1 week duration. HISTORY OF PRESENT ILLNESS: The patient is a 73-year-old pleasant white female with history of nonalcoholic fatty liver disease with cirrhosis of the liver complicated with hepatocellular carcinoma for which he underwent chemoembolization early part of this year, was admitted to hospital because of epigastric pain associated with nausea, vomiting for the last 1 week duration. She has been throwing up at least 2-3 times daily. The pain is mostly in the epigastric and periumbilical area. She denies any coffee-grounds emesis. She has history of ileostomy several years ago for complicated diverticular disease. She denies any blood in the ileostomy bag. She reports no fever, chills, or night sweats. Since she was admitted to the hospital yesterday, and she was given IV Protonix and Zofran and symptoms are gradually improving. No prior history of peptic ulcer disease. She does not recall her last upper endoscopy. PAST MEDICAL HISTORY: Significant for gastroesophageal reflux disease, cirrhosis of the liver secondary to fatty liver disease, hypertension, hyperlipidemia, anxiety, depression, and diabetes mellitus. MEDICATIONS: At home include: Prilosec, Carafate, NovoLog, vitamin D3, iron sulfate, MS Contin, Lopressor, Zofran, Wellbutrin, Klonopin, and Cephulac. ALLERGIES: TO AMLODIPINE, PENICILLIN, OXYCODONE, HYDROMORPHONE, GREG INHIBITORS. PAST SURGICAL HISTORY: , ileostomy, cholecystectomy, appendectomy, tonsillectomy, hysterectomy, right rotator cuff. Carpal tunnel release. SOCIAL HISTORY: Former smoker. No alcohol use. FAMILY HISTORY: Mother had congestive heart failure. Father with chest pain and angina. REVIEW OF SYSTEMS: CARDIOPULMONARY: No chest pain or shortness of breath. GENITOURINARY: No dysuria or hematuria. MUSCULOSKELETAL: Chronic back pain. NEUROLOGY: Unremarkable. PSYCHIATRIC: Anxiety and depression. ENT/vision unremarkable. CONSTITUTIONAL: No recent weight loss. No fever, chills, night sweats. GI as mentioned above. HEMATOLOGY unremarkable. PHYSICAL EXAMINATION: She appears comfortable. No apparent distress. VITAL SIGNS: Stable. Blood pressure is 114/59, pulse is 67, temperature afebrile. HEENT examination unremarkable Conjunctivae pink. Sclerae anicteric. Oral cavity no lesions. NECK: No JVD or lymph node enlargement. CHEST: Clear to auscultation. HEART: Regular rate and rhythm. ABDOMEN: Soft, it was obese. There was tenderness in the epigastric and periumbilical area. There was an ileostomy bag in the right lower quadrant. EXTREMITIES: No pedal edema. SKIN: No rashes. NEUROLOGIC: Alert and oriented x3. No focal deficits. LABS: Done at the time of admission to the hospital: WBC 3.6, hemoglobin 11.1, platelets 37,000. Today, platelets are 78,000 and hemoglobin is 10.9. ALT and AST are 68 and 37 respectively. T bilirubin 2.5, alkaline phosphatase is 176. IMPRESSION: 1. Epigastric pain associated with nausea, vomiting for the last 1 week duration. She has longstanding history of gastroesophageal reflux disease and has been on Prilosec 20 mg daily on outpatient basis. Rule out possibility of peptic ulcer disease. 2. Non-alcoholic fatty liver disease with liver cirrhosis, complicated with hepatocellular carcinoma for which she underwent chemoembolization early part of this year. 3. Mild elevation of serum transaminases secondary due to underlying fatty liver disease/cirrhosis of the liver. RECOMMENDATIONS: 1. Clear liquid diet. 2. Proceed with EGD tomorrow. 3. Continue with Protonix 40 mg daily. 4. Continue with Xifaxan and lactulose. 5. Scheduled for an upper endoscopy tomorrow. Discussed with the patient the risks, benefits and complications and she is agreeable to it. Thank you for this consultation. MMODL / IJN: [id number] /
[2019-07-30 20:47] LABS: Glucose,Whole Blood 142 mg/dL (75-99)
[2019-07-31 07:06] LABS: Glucose,Whole Blood 54 mg/dL (75-99)
[2019-07-31] MEDS: INSULIN ASPART (NovoLOG) 100 UNIT/ML VIAL SQ SCH ×4 (07:12→20:44)
[2019-07-31] MEDS ORDERED: DEXTROSE 10 % IN WATER 250 ML IV ONE (07:13)
[2019-07-31] MEDS: PANTOPRAZOLE 40 MG TABLET PO SCH (07:30)
[2019-07-31] MEDS: SUCRALFATE 1 GM TAB PO SCH ×4 (07:30→20:45)
[2019-07-31] MEDS: FERROUS SULFATE 325 MG TAB PO SCH ×2 (07:30→20:45)
[2019-07-31] MEDS: DICYCLOMINE 20 MG TAB PO SCH ×4 (07:30→20:46)
[2019-07-31] MEDS: buPROPion SR 150 MG TABLET.ER PO SCH ×2 (07:30→20:46)
[2019-07-31] MEDS: INSULIN NPH 300 UNIT/3 ML VIAL SQ SCH ×2 (07:30→20:47)
[2019-07-31] MEDS: RIFAXIMIN 550 MG TABLET PO SCH ×2 (07:31→20:46)
[2019-07-31] MEDS: MORPHINE SULFATE ER 15 MG TABLET PO SCH ×2 (07:31→20:45)
[2019-07-31] MEDS: LACTULOSE 20 GM/30 ML CUP PO SCH ×3 (07:31→20:45)
[2019-07-31 07:50] LABS: Glucose,Whole Blood 103 mg/dL (75-99)
[2019-07-31 09:11] LABS: Anisocytosis Slight; Basophils % (A) 1 %; Eosinophils # (A) 0.2 k/uL (0-0.7); Eosinophils % (A) 7 %; HCT 30.9 % (34.0-46.0); HGB 9.9 gm/dL (11.4-16.0); Lymphocytes # (A) 0.8 k/uL (1.0-4.8); Lymphocytes % (A) 24 %; MCH 34.6 pg (25.0-35.0); MCHC 32.2 g/dL (31.0-37.0); MCV 107.3 fL (80.0-100.0); Macrocytosis Marked; Mean Platelet Volume 9.5; Monocytes # (A) 0.3 k/uL (0-1.0); Monocytes % (A) 8 %; Neutrophils # (A) 1.9 k/uL (1.3-7.7); Neutrophils % (A) 57 %; RBC 2.88 m/uL (3.80-5.40); RDW 16.3 % (11.5-15.5); WBC 3.3 k/uL (3.8-10.6)
[2019-07-31 09:15] LABS: Platelet Count 73 k/uL (150-450)
[2019-07-31 09:17] LABS: Calcium 7.7 mg/dL (8.4-10.2); Potassium 4.2 mmol/L (3.5-5.1); Total Protein 5.3 g/dL (6.3-8.2)
--- NOTE | 2019-07-31 09:50 | P.PN ---
Subjective Progress Note Date: 07/31/19 Charlene Keenan is a 73-year-old female well known to my practice who presented to [facility] emergency room with a chief complaint of abdominal pain nausea and vomiting, patient has a known history of liver cancer, she was recently admitted to [facility] with similar symptoms she was seen by gastroenterology and was treated symptomatically and was discharged home, however her symptoms worsened and she decided to come back to emergency room. Patient is complaining of feeling weak and complaining of nausea and vomiting and poor appetite there is no fever or chills no headache or dizziness no chest pain no shortness of breath no cough no diarrhea no burning with urination no frequency or urgency no hematuria weakness or numbness in any of her extremities no change in her vision speech or gait. On 07/31/2019 patient is alert and oriented 3. Patient is feeling improved today. Planning EGD per GI services. At this time patient denies chest pain or shortness of breath. Patient denies nausea vomiting or diarrhea. Patient denies any urinary burning frequency Objective - Vital Signs Vital signs: Vital Signs Temp 98.3 F 07/31/19 05:00 Pulse 61 07/31/19 05:00 Resp 18 07/31/19 05:00 BP 98/53 07/31/19 05:00 Pulse Ox 98 07/31/19 05:00 Intake & Output 07/30/19 07/31/19 07/31/19 18:59 06:59 18:59 Intake Total 1050 1820 Balance 1050 1820 Intake: Intake, IV Titration 450 800 Amount Sodium Chloride 0.9% 1, 450 800 000 ml @ 75 mls/hr IV . [id number] JENNY Rx#:[id number] Oral 600 1020 Other: # Voids 2 # Bowel Movements 2 - Exam Narrative patient is alert and oriented 3 in no apparent distress HEENT head normocephalic and atraumatic Neck is supple no JVD no goiter no lymphadenopathy Chest exam reveals a few scattered rhonchi no crackles no wheezing Cardiac exam reveals regular heart sounds no gallops no murmurs Abdomen is soft, with mild diffuse tenderness, mild distention in the abdomen with possible ascites, no organomegaly with normal bowel sounds Extremity exam reveals no edema no cyanosis or clubbing Neurological examination reveals no gross focal deficit - Labs CBC & Chem 7: 07/31/19 08:46 07/31/19 08:46 Labs: Abnormal Lab Results - Last 24 Hours (Table) 07/30/19 07/30/19 07/30/19 Range/Units 11:12 17:11 20:46 WBC (3.8-10.6) k/uL RBC (3.80-5.40) m/uL Hgb (11.4-16.0) gm/dL Hct (34.0-46.0) % MCV (80.0-100.0) fL RDW (11.5-15.5) % Plt Count (150-450) k/uL Macrocytosis Chloride (98-107) mmol/L Carbon Dioxide (22-30) mmol/L Creatinine (0.52-1.04) mg/dL POC Glucose (mg/dL) 133 H 131 H 142 H (75-99) mg/dL Calcium (8.4-10.2) mg/dL Total Bilirubin (0.2-1.3) mg/dL AST (14-36) U/L Alkaline Phosphatase (38-126) U/L Total Protein (6.3-8.2) g/dL Albumin (3.5-5.0) g/dL 07/31/19 07/31/19 07/31/19 Range/Units 07:03 07:48 08:46 WBC 3.3 L (3.8-10.6) k/uL RBC 2.88 L (3.80-5.40) m/uL Hgb 9.9 L (11.4-16.0) gm/dL Hct 30.9 L (34.0-46.0) % MCV 107.3 H (80.0-100.0) fL RDW 16.3 H (11.5-15.5) % Plt Count 73 L (150-450) k/uL Macrocytosis Marked A Chloride (98-107) mmol/L Carbon Dioxide (22-30) mmol/L Creatinine (0.52-1.04) mg/dL POC Glucose (mg/dL) 54 L 103 H (75-99) mg/dL Calcium (8.4-10.2) mg/dL Total Bilirubin (0.2-1.3) mg/dL AST (14-36) U/L Alkaline Phosphatase (38-126) U/L Total Protein (6.3-8.2) g/dL Albumin (3.5-5.0) g/dL 07/31/19 Range/Units 08:46 WBC (3.8-10.6) k/uL RBC (3.80-5.40) m/uL Hgb (11.4-16.0) gm/dL Hct (34.0-46.0) % MCV (80.0-100.0) fL RDW (11.5-15.5) % Plt Count (150-450) k/uL Macrocytosis Chloride 112 H (98-107) mmol/L Carbon Dioxide 20 L (22-30) mmol/L Creatinine 1.07 H (0.52-1.04) mg/dL POC Glucose (mg/dL) (75-99) mg/dL Calcium 7.7 L (8.4-10.2) mg/dL Total Bilirubin 2.0 H (0.2-1.3) mg/dL AST 77 H (14-36) U/L Alkaline Phosphatase 184 H (38-126) U/L Total Protein 5.3 L (6.3-8.2) g/dL Albumin 2.0 L (3.5-5.0) g/dL Assessment and Plan Assessment: #1 abdominal pain nausea and vomiting. GI services have been consulted planning EGD today #2 poor appetite due to nausea and vomiting #3 underlying history of hepatocellular carcinoma. Neurology services have been consulted #4 underlying history of liver cirrhosis #5 underlying history of hypertension #6 underlying history of insulin-dependent diabetes mellitus #7 underlying history of depression #8 anemia of chronic disease related to known hepatocellular carcinoma. #9 pancytopenia elevated to hepatocellular carcinoma DVT prophylaxis SCDs. GI prophylaxis Protonix I performed an examination of the patient and discussed their management with the Nurse Practitioner. I have reviewed the Nurse Practitioner's notes and agree with the documented findings and plan of care
[2019-07-31 11:01] LABS: Glucose,Whole Blood 65 mg/dL (75-99)
[2019-07-31 11:31] LABS: Glucose,Whole Blood 87 mg/dL (75-99)
[2019-07-31] MEDS: MORPHINE SULFATE 4 MG/ML SYRINGE IV PRN ×3 (11:39→22:26)
[2019-07-31] MEDS: METOPROLOL TARTRATE 25 MG TAB PO SCH (11:49)
[2019-07-31] MEDS: ISOSORBIDE MONONITRATE ER 30 MG TAB.ER.24H PO SCH (11:53)
[2019-07-31] MEDS ORDERED: PROPOFOL 10 MG/ML 20 ML VIAL IV ONE (12:47)
[2019-07-31] MEDS ORDERED: IV FLUID CONTINUATION 900 ML IV ONE (12:51)
--- NOTE | 2019-07-31 13:01 | P.PCN ---
Date of Procedure: 07/31/19 Procedure(s) Performed: BRIEF HISTORY: Patient is a 73-year-old, pleasant, white female with history of liver cirrhosis secondary to fatty liver disease was admitted hospital with epigastric and periumbilical abdominal pain with nausea vomiting for the last 1 week duration. She is hence scheduled for an upper endoscopy to evaluate. PROCEDURE PERFORMED: Esophagogastroduodenoscopy with biopsy. PREOPERATIVE DIAGNOSIS: Epigastric pain/nausea vomiting of 1 week duration. IV sedation per anesthesia. PROCEDURE: After informed consent was obtained, the patient was brought into the endoscopy unit. IV sedation was administered by Anesthesia under continuous monitoring. Initially the Olympus GIF-140 video endoscope was inserted into the mouth. Esophagus intubated without any difficulty. It was gradually advanced into the stomach and duodenum and carefully examined. The bulb and the second part of the duodenum appeared normal. The scope at this time was withdrawn to the stomach, adequately insufflated with air, and upon careful examination, mucosa of the antrum had mild gastritis and biopsies were done from this area. The, body, cardia and the fundus appeared normal. The scope was then withdrawn into the esophagus. The GE junction was located at 39 cm from the incisors. The esophagus appeared normal. There were no erosions or ulcerations seen and the patient tolerated the procedure well. IMPRESSION: 1. Mild antral gastritis. 2. No evidence of esophagitis or peptic ulcer disease. RECOMMENDATIONS: The findings of this examination were discussed with the patient as well as a family. She will continue with Protonix 40 mg daily and antiemetics as needed. She was advised to follow with the biopsy results. Diet will be advanced as tolerated..
[2019-07-31] MEDS: CHOLECALCIFEROL 1,000 UNIT TAB PO SCH (13:59)
--- NOTE | 2019-07-31 14:45 | P.CONS ---
History of Present Illness - Reason for Consult Consult date: 07/31/19 Hx HCC Requesting physician: Artemio Lea - Chief Complaint intractable N,V - History of Present Illness Ms. Keenan was initially introduced to our service in 11/01, she was going to transfer her care more locally. She has a known history of HCC, diagnosed [facility]. 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 04/18/2013 there was attempt to resect liver mass by Dr. Desai, but excision of mass was not able to be performed. Between 2012--2014 she was treated with chemoembolization (per patient) at [place]. She was seen and treated by Dr. Varela during this time. 2014 seen at [facility] briefly, then again in 2016, she was seen Dr. Greg Bear in November 2016. 02/2016 had ablation liver mass. 06/2016 evaluated at [facility] by Gastroenterology when a repeat liver biopsy was performed. Resulted with well-differentiated Hepatocellular Carcinoma. 10/2016 chemoembolization to left hepatic lobe with Interventional Radiology. 08/2018 evaluated at [facility], right hepatic lobe biopsy was performed, well differentiated HCC and new 4.3cm right hepatic mass, underwent chemoembolization in August 2018. She followed with Medical Oncologist Dr. Julio. She has had multiple paracenteses with cytology negative. She has had multiple office appointments made but has not kept them due to recurrent hospital admissions. She has not followed up with any recommendations due to frequent hospitalizations. Currently admitted with intractable nausea and vomiting, denies hematemesis, fever, no acute changes in ostomy output, FLAVIO, new cough. 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 Ms. Keenan has had 19 presentations to the emergency, with many of those being admissions, since Nov 2018. Oncology was last consulted in March. Pt has not followed up in office. Last CT AP was in May with no evidence to suggest progressive HCC. Last AFP was 03/2019 was not suspicious. Review of Systems 14 point ROS is negative except as stated in HPI Past Medical History Past Medical History: Cancer, Diabetes Mellitus, Hypertension, Liver Disease, Myocardial Infarction (SC), Renal Disease Additional Past Medical History / Comment(s): Hepatocellular liver cancer with chemo immobilization-last time being 2017, ascities with paracentesis's may 2019, nonalcoholic liver cirrhosis, chronic pancytopenia, chronic elevated ammonia levels, hepatic encephalopathy, chronic elevated LFTs, chronic abdominal pain, stomach ulcer, diverticular disease with ileostomy, IDDM type II, iron a nemia, CKD stage III, nonsustained vtach, UTI, high ammonia levels Last Myocardial Infarction Date:: unk History of Any Multi-Drug Resistant Organisms: MRSA, 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 Past Anesthesia/Blood Transfusion Reactions: No Reported Reaction Past Psychological History: Anxiety, Depression Additional Psychological History / Comment(s): Reformed smoker. . Retired. No experience. No animal exposures Smoking Status: Never smoker Past Alcohol Use History: None Reported Additional Past Alcohol Use History / Comment(s): started smoking 1962 and quit 1965 Past Drug Use History: None Reported - Past Family History Mother History Unknown: Yes Family Medical History: Congestive Heart Failure (CHF) Additional Family Medical History / Comment(s): Mother is 94 yrs old. Father Family Medical History: Chest Pain / Angina Additional Family Medical History / Comment(s): Father is . Medications and Allergies Home Medications Medication Instructions Recorded Confirmed Type Omeprazole [PriLOSEC] 20 mg PO BID 10/23/18 07/29/19 History Sucralfate [Carafate] 1 gm PO ACHS 10/23/18 07/29/19 History Insulin Regular, Human [NovoLIN R] 10 unit SQ AC-TID 10/24/18 07/29/19 History Cholecalciferol [Vitamin D3 (25 4,000 unit PO DAILY 01/16/19 07/29/19 History Mcg = 1000 Iu)] Ferrous Sulfate [Iron (65 MG 325 mg PO BID 01/31/19 07/29/19 History Elemental)] Insulin NPH [humuLIN N] 18 unit SQ BID vial 02/06/19 07/29/19 Rx Morphine Sulfate [Ms Contin] 15 mg PO BID 05/15/19 07/29/19 History Metoprolol Tartrate [Lopressor] 6.25 mg PO DAILY 06/12/19 07/29/19 History Ondansetron Odt [Zofran ODT] 8 mg SL DAILY PRN 06/12/19 07/29/19 History buPROPion HCL [Wellbutrin SR] 150 mg PO BID 06/12/19 07/29/19 History clonazePAM [KlonoPIN] 0.5 mg PO Q8HR PRN 06/12/19 07/29/19 History Lactulose [Cephulac] 30 gm PO TID 07/22/19 07/29/19 History Dicyclomine [Bentyl] 20 mg PO QID 30 Days #120 tab 07/26/19 07/29/19 Rx Isosorbide Mononitrate ER [Imdur] 30 mg PO DAILY 30 Days #30 07/26/19 07/29/19 Rx tab.er.24h Nystatin 100,000 Unit/ml Susp 500,000 unit PO QID 7 Days #21 cup 07/26/19 07/29/19 Rx [Mycostatin Oral Susp] Rifaximin [Xifaxan] 550 mg PO BID tablet 07/26/19 07/29/19 Rx Allergies Allergy/AdvReac Type Severity Reaction Status Date / Time amlodipine Allergy Rash/Hives Verified 07/29/19 17:36 oxycodone Allergy Rash/Hives Verified 07/29/19 17:36 Penicillins Allergy Rash/Hives Verified 07/29/19 17:36 hydromorphone [From Dilaudid] AdvReac Mild tactile Verified 07/29/19 17:36 disturbance GREG Inhibitors AdvReac Cough Verified 07/29/19 17:36 sodium dodecyclbenzene Allergy Rash/Hives Uncoded 07/22/19 08:08 sulfonate Physical Exam Vitals: Vital Signs Temp Pulse Resp BP Pulse Ox 07/31/19 12:31 98.1 F 57 L 15 95/57 98 07/31/19 12:24 98.3 F 58 L 16 105/58 99 07/31/19 05:00 98.3 F 61 18 98/53 98 07/31/19 00:00 56 L 18 07/30/19 21:46 98.6 F 56 L 18 92/54 99 Intake and Output 07/30/19 07/31/19 07/31/19 22:59 06:59 14:59 Intake Total 0312 445 6311 Balance 4261 486 3427 Intake: IV 100 Intake, IV Titration 350 450 900 Amount Dextrose 10 % in Water 250 250 ml @ 999 mls/hr IV ONCE ONE Rx#:[id number] Sodium Chloride 0.9% 1, 350 450 650 000 ml @ 75 mls/hr IV . [id number] JENNY Rx#:[id number] Oral 1020 Other: # Voids 2 2 2 # Bowel Movements 2 - Constitutional General appearance: cooperative, no acute distress, obese - EENT Eyes: anicteric sclerae, EOMI, poor dentition ENT: hearing grossly normal, normal oropharynx - Neck Neck: no lymphadenopathy - Respiratory Respiratory: bilateral: CTA - Cardiovascular Rhythm: regular Heart sounds: normal: S1, S2 Abnormal Heart Sounds: no systolic murmur, no diastolic murmur, no rub, no S3 Gallop, no S4 Gallop, no click, no other leg Peripheral Edema: bilateral: Trace - Gastrointestinal General gastrointestinal: no absent bowel sounds, no decreased bowel sounds, distended, no hepatomegaly, no hyperactive bowel sounds, normal bowel sounds, no organomegaly, no rigid, no scaphoid, soft, no splenomegaly, tenderness, no umbilical hernia, no ventral hernia - Integumentary Integumentary: pale - Neurologic Neurologic: CNII-XII intact - Musculoskeletal Musculoskeletal: generalized weakness, strength equal bilaterally - Psychiatric Psychiatric: A&O x's 3, appropriate affect, intact judgment & insight Results CBC & Chem 7: 07/31/19 08:46 07/31/19 08:46 Labs: Abnormal Lab Results - Last 24 Hours (Table) 07/30/19 07/30/19 07/31/19 Range/Units 17:11 20:46 07:03 WBC (3.8-10.6) k/uL RBC (3.80-5.40) m/uL Hgb (11.4-16.0) gm/dL Hct (34.0-46.0) % MCV (80.0-100.0) fL RDW (11.5-15.5) % Plt Count (150-450) k/uL Lymphocytes # (1.0-4.8) k/uL Macrocytosis Chloride (98-107) mmol/L Carbon Dioxide (22-30) mmol/L Creatinine (0.52-1.04) mg/dL POC Glucose (mg/dL) 131 H 142 H 54 L (75-99) mg/dL Calcium (8.4-10.2) mg/dL Total Bilirubin (0.2-1.3) mg/dL AST (14-36) U/L Alkaline Phosphatase (38-126) U/L Total Protein (6.3-8.2) g/dL Albumin (3.5-5.0) g/dL 07/31/19 07/31/19 07/31/19 Range/Units 07:48 08:46 08:46 WBC 3.3 L (3.8-10.6) k/uL RBC 2.88 L (3.80-5.40) m/uL Hgb 9.9 L (11.4-16.0) gm/dL Hct 30.9 L (34.0-46.0) % MCV 107.3 H (80.0-100.0) fL RDW 16.3 H (11.5-15.5) % Plt Count 73 L (150-450) k/uL Lymphocytes # 0.8 L (1.0-4.8) k/uL Macrocytosis Marked A Chloride 112 H (98-107) mmol/L Carbon Dioxide 20 L (22-30) mmol/L Creatinine 1.07 H (0.52-1.04) mg/dL POC Glucose (mg/dL) 103 H (75-99) mg/dL Calcium 7.7 L (8.4-10.2) mg/dL Total Bilirubin 2.0 H (0.2-1.3) mg/dL AST 77 H (14-36) U/L Alkaline Phosphatase 184 H (38-126) U/L Total Protein 5.3 L (6.3-8.2) g/dL Albumin 2.0 L (3.5-5.0) g/dL 07/31/19 Range/Units 11:00 WBC (3.8-10.6) k/uL RBC (3.80-5.40) m/uL Hgb (11.4-16.0) gm/dL Hct (34.0-46.0) % MCV (80.0-100.0) fL RDW (11.5-15.5) % Plt Count (150-450) k/uL Lymphocytes # (1.0-4.8) k/uL Macrocytosis Chloride (98-107) mmol/L Carbon Dioxide (22-30) mmol/L Creatinine (0.52-1.04) mg/dL POC Glucose (mg/dL) 65 L (75-99) mg/dL Calcium (8.4-10.2) mg/dL Total Bilirubin (0.2-1.3) mg/dL AST (14-36) U/L Alkaline Phosphatase (38-126) U/L Total Protein (6.3-8.2) g/dL Albumin (3.5-5.0) g/dL Assessment and Plan (1) History of liver cancer Narrative/Plan: No recent f/u regarding the same. AFP ordered. Will f/u with images if appropriate (last CT in May) Current Visit: No Status: Chronic Priority: Medium Code(s): Z85.05 - PERSONAL HISTORY OF MALIGNANT NEOPLASM OF LIVER SNOMED Code(s): 650317808 (2) Intractable nausea and vomiting Narrative/Plan: Pending EGD. Pt is on medications to relieve symptoms Current Visit: Yes Status: Acute Priority: High Code(s): R11.2 - NAUSEA WITH VOMITING, UNSPECIFIED SNOMED Code(s): 462692295 (3) Thrombocytopenia Narrative/Plan: Secondary to splenic sequestraion from liver cirrhosis, stable, near pt baseline. No acute intervention Current Visit: Yes Status: Chronic Priority: Medium Code(s): D69.6 - THROMBOCYTOPENIA, UNSPECIFIED SNOMED Code(s): 720887937 (4) Macrocytic anemia Narrative/Plan: Progressive, macrocytic anemia work up ordered. Transfuse for Hgb < 7 or if symptomatic Current Visit: Yes Status: Acute Priority: Medium Code(s): D53.9 - NUTRITIONAL ANEMIA, UNSPECIFIED SNOMED Code(s): 05258291
[2019-07-31 16:20] LABS: Alpha Fetoprotein, Tumor Mkr 2.9 ng/mL (0.0-7.9); Ferritin 110.3 ng/mL (10.0-291.0)
[2019-07-31 16:23] LABS: Iron Saturation 29.88 (12.00-45.00)
[2019-07-31 17:10] LABS: Glucose,Whole Blood 157 mg/dL (75-99)
[2019-07-31] MEDS: SODIUM CHLORIDE 0.9% 1,000 ML IV SCH (17:27)
[2019-07-31 20:42] LABS: Glucose,Whole Blood 156 mg/dL (75-99)
[2019-07-31] MEDS: ONDANSETRON 4 MG/2 ML VIAL IVP PRN (22:34)
[2019-08-01] MEDS: MORPHINE SULFATE 4 MG/ML SYRINGE IV PRN ×3 (02:32→19:59)
[2019-08-01] MEDS: SODIUM CHLORIDE 0.9% 1,000 ML IV SCH (02:34)
[2019-08-01 07:05] LABS: Glucose,Whole Blood 102 mg/dL (75-99)
[2019-08-01] MEDS: INSULIN ASPART (NovoLOG) 100 UNIT/ML VIAL SQ SCH ×4 (07:13→20:56)
[2019-08-01] MEDS: buPROPion SR 150 MG TABLET.ER PO SCH ×2 (07:33→21:22)
[2019-08-01] MEDS: SUCRALFATE 1 GM TAB PO SCH ×4 (07:33→21:21)
[2019-08-01] MEDS: PANTOPRAZOLE 40 MG TABLET PO SCH (07:33)
[2019-08-01] MEDS: METOPROLOL TARTRATE 25 MG TAB PO SCH (07:34)
[2019-08-01] MEDS: ISOSORBIDE MONONITRATE ER 30 MG TAB.ER.24H PO SCH (07:34)
[2019-08-01] MEDS: FERROUS SULFATE 325 MG TAB PO SCH ×2 (07:34→21:21)
[2019-08-01] MEDS: CHOLECALCIFEROL 1,000 UNIT TAB PO SCH (07:34)
[2019-08-01] MEDS: RIFAXIMIN 550 MG TABLET PO SCH ×2 (07:34→21:22)
[2019-08-01] MEDS: INSULIN NPH 300 UNIT/3 ML VIAL SQ SCH (07:34)
[2019-08-01] MEDS: DICYCLOMINE 20 MG TAB PO SCH ×4 (07:34→21:22)
[2019-08-01] MEDS: MORPHINE SULFATE ER 15 MG TABLET PO SCH ×2 (07:35→21:22)
[2019-08-01] MEDS: LACTULOSE 20 GM/30 ML CUP PO SCH ×3 (07:35→20:06)
[2019-08-01 07:39] LABS: Basophils % (A) 1 %; Eosinophils # (A) 0.2 k/uL (0-0.7); Eosinophils % (A) 5 %; HCT 34.3 % (34.0-46.0); HGB 11.2 gm/dL (11.4-16.0); Hypochromasia Slight; Lymphocytes # (A) 1.1 k/uL (1.0-4.8); Lymphocytes % (A) 24 %; MCHC 32.8 g/dL (31.0-37.0); MCV 106.8 fL (80.0-100.0); Macrocytosis Moderate; Mean Platelet Volume 8.8; Monocytes # (A) 0.3 k/uL (0-1.0); Monocytes % (A) 7 %; Neutrophils # (A) 2.8 k/uL (1.3-7.7); Neutrophils % (A) 61 %; RBC 3.21 m/uL (3.80-5.40); RDW 15.2 % (11.5-15.5); WBC 4.7 k/uL (3.8-10.6)
[2019-08-01 07:50] LABS: Albumin 2.6 g/dL (3.5-5.0); Calcium 8.1 mg/dL (8.4-10.2); Total Bilirubin 1.7 mg/dL (0.2-1.3); Total Protein 6.3 g/dL (6.3-8.2)
[2019-08-01 08:13] LABS: Platelet Count 79 k/uL (150-450)
--- NOTE | 2019-08-01 10:24 | P.PN ---
Subjective Progress Note Date: 08/01/19 Charlene Keenan is a 73-year-old female well known to my practice who presented to [facility] emergency room with a chief complaint of abdominal pain nausea and vomiting, patient has a known history of liver cancer, she was recently admitted to [facility] with similar symptoms she was seen by gastroenterology and was treated symptomatically and was discharged home, however her symptoms worsened and she decided to come back to emergency room. Patient is complaining of feeling weak and complaining of nausea and vomiting and poor appetite there is no fever or chills no headache or dizziness no chest pain no shortness of breath no cough no diarrhea no burning with urination no frequency or urgency no hematuria weakness or numbness in any of her extremities no change in her vision speech or gait. On 07/31/2019 patient is alert and oriented 3. Patient is feeling improved today. Planning EGD per GI services. At this time patient denies chest pain or shortness of breath. Patient denies nausea vomiting or diarrhea. Patient denies any urinary burning frequency On 08/01/2019 patient's alert and oriented 3. Patient underwent EGD yesterday with Dr. Figueroa showing mild antral gastritis and no evidence of esophagitis or peptic ulcer disease. Patient is still having some abdominal discomfort with nausea. Per GI services advance diet as tolerated PT and OT will be consulted for possible ECF placement. At this time patient denies chest pain or shortness any urinary burning or frequency. Patient does report some nausea. Objective - Vital Signs Vital signs: Vital Signs Temp 98.9 F 08/01/19 05:00 Pulse 67 08/01/19 05:00 Resp 16 08/01/19 05:00 BP 116/58 08/01/19 05:00 Pulse Ox 98 08/01/19 05:00 Intake & Output 07/31/19 08/01/19 08/01/19 18:59 06:59 18:59 Intake Total 1000 900 Balance 1000 900 Intake: IV 100 Intake, IV Titration 900 900 Amount Dextrose 10 % in Water 250 250 ml @ 999 mls/hr IV ONCE ONE Rx#:[id number] Sodium Chloride 0.9% 1, 650 900 000 ml @ 75 mls/hr IV . [id number] [facility] Rx#:[id number] Other: Voiding Method Toilet # Voids 2 - Exam Narrative patient is alert and oriented 3 in no apparent distress HEENT head normocephalic and atraumatic Neck is supple no JVD no goiter no lymphadenopathy Chest exam reveals a few scattered rhonchi no crackles no wheezing Cardiac exam reveals regular heart sounds no gallops no murmurs Abdomen is soft, with mild diffuse tenderness, mild distention in the abdomen with possible ascites, no organomegaly with normal bowel sounds Extremity exam reveals no edema no cyanosis or clubbing Neurological examination reveals no gross focal deficit - Labs CBC & Chem 7: 08/01/19 07:22 08/01/19 07:22 Labs: Abnormal Lab Results - Last 24 Hours (Table) 07/31/19 07/31/19 07/31/19 Range/Units 08:46 08:46 11:00 WBC 3.3 L (3.8-10.6) k/uL RBC 2.88 L (3.80-5.40) m/uL Hgb 9.9 L (11.4-16.0) gm/dL Hct 30.9 L (34.0-46.0) % MCV 107.3 H (80.0-100.0) fL RDW 16.3 H (11.5-15.5) % Plt Count 73 L (150-450) k/uL Lymphocytes # 0.8 L (1.0-4.8) k/uL Macrocytosis Marked A Chloride (98-107) mmol/L Carbon Dioxide (22-30) mmol/L Creatinine (0.52-1.04) mg/dL POC Glucose (mg/dL) 65 L (75-99) mg/dL Calcium (8.4-10.2) mg/dL Iron 49 L (50-170) ug/dL TIBC 164 L (228-460) ug/dL Total Bilirubin (0.2-1.3) mg/dL AST (14-36) U/L Alkaline Phosphatase (38-126) U/L Ammonia (<30) umol/L Albumin (3.5-5.0) g/dL 07/31/19 07/31/19 08/01/19 Range/Units 17:07 20:41 06:57 WBC (3.8-10.6) k/uL RBC (3.80-5.40) m/uL Hgb (11.4-16.0) gm/dL Hct (34.0-46.0) % MCV (80.0-100.0) fL RDW (11.5-15.5) % Plt Count (150-450) k/uL Lymphocytes # (1.0-4.8) k/uL Macrocytosis Chloride (98-107) mmol/L Carbon Dioxide (22-30) mmol/L Creatinine (0.52-1.04) mg/dL POC Glucose (mg/dL) 157 H 156 H 102 H (75-99) mg/dL Calcium (8.4-10.2) mg/dL Iron (50-170) ug/dL TIBC (228-460) ug/dL Total Bilirubin (0.2-1.3) mg/dL AST (14-36) U/L Alkaline Phosphatase (38-126) U/L Ammonia (<30) umol/L Albumin (3.5-5.0) g/dL 08/01/19 08/01/19 08/01/19 Range/Units 07:22 07:22 07:22 WBC (3.8-10.6) k/uL RBC 3.21 L (3.80-5.40) m/uL Hgb 11.2 L (11.4-16.0) gm/dL Hct (34.0-46.0) % MCV 106.8 H (80.0-100.0) fL RDW (11.5-15.5) % Plt Count 79 L (150-450) k/uL Lymphocytes # (1.0-4.8) k/uL Macrocytosis Chloride 113 H (98-107) mmol/L Carbon Dioxide 20 L (22-30) mmol/L Creatinine 1.08 H (0.52-1.04) mg/dL POC Glucose (mg/dL) (75-99) mg/dL Calcium 8.1 L (8.4-10.2) mg/dL Iron (50-170) ug/dL TIBC (228-460) ug/dL Total Bilirubin 1.7 H (0.2-1.3) mg/dL AST 95 H (14-36) U/L Alkaline Phosphatase 284 H (38-126) U/L Ammonia 34 H (<30) umol/L Albumin 2.6 L (3.5-5.0) g/dL Assessment and Plan Assessment: #1 abdominal pain nausea and vomiting. Status post EGD showing mild antral gastritis no evidence of esophagitis or peptic ulcer disease. Advanced diet as tolerated. Per GI services continue Protonix 40 mg daily and antiemetics. #2 poor appetite due to nausea and vomiting #3 underlying history of hepatocellular carcinoma. Oncology service is following #4 underlying history of liver cirrhosis #5 underlying history of hypertension #6 underlying history of insulin-dependent diabetes mellitus #7 underlying history of depression #8 anemia of chronic disease related to known hepatocellular carcinoma. #9 pancytopenia elevated to hepatocellular carcinoma DVT prophylaxis SCDs due to thrombocytopenia. GI prophylaxis Protonix PT OT consulted. Social consulted for possible ECF placement I performed an examination of the patient and discussed their management with the Nurse Practitioner. I have reviewed the Nurse Practitioner's notes and agree with the documented findings and plan of care
[2019-08-01] MEDS: SODIUM FERRIC GLUCONAT-SUCROSE 125 MG in SODIUM CHLORIDE 0.9% 100 ML IVPB SCH (11:35)
[2019-08-01 11:44] LABS: Glucose,Whole Blood 60 mg/dL (75-99)
[2019-08-01 12:00] LABS: Glucose,Whole Blood 67 mg/dL (75-99)
[2019-08-01 12:22] LABS: Glucose,Whole Blood 100 mg/dL (75-99)
--- NOTE | 2019-08-01 14:18 | P.PN ---
Subjective Progress Note Date: 08/01/19 Principal diagnosis: intractable nausea and vomiting In follow-up today patient states less nausea, no vomiting this morning. She is being maintained on antiemetics. She is status post EGD with biopsies. She is on anti-acids. She has asked for an ultrasound of her abdomen for evaluation of ascites and possible paracentesis. She denies dysuria, hematuria, stool output is stable from ostomy. Patient still has the persistent band of pain across the upper abdomen, not progressive. Current analgesics are helpful Objective - Vital Signs Vital signs: Vital Signs Temp 98.4 F 08/01/19 12:02 Pulse 58 L 08/01/19 12:02 Resp 16 08/01/19 12:02 BP 95/53 08/01/19 12:02 Pulse Ox 99 08/01/19 12:02 Intake & Output 07/31/19 08/01/19 08/01/19 18:59 06:59 18:59 Intake Total 1000 900 Balance 1000 900 Intake: IV 100 Intake, IV Titration 900 900 Amount Dextrose 10 % in Water 250 250 ml @ 999 mls/hr IV ONCE ONE Rx#:[id number] Sodium Chloride 0.9% 1, 650 900 000 ml @ 75 mls/hr IV . [id number] [facility] Rx#:[id number] Other: Voiding Method Toilet # Voids 2 - Constitutional General appearance: Present: cooperative, no acute distress, obese - EENT Eyes: Present: anicteric sclerae, EOMI ENT: Present: hearing grossly normal - Respiratory Respiratory: bilateral: CTA, diminished (bases) - Cardiovascular Details: radial pulses 2+ Heart sounds: normal: S1, S2 - Peripheral edema leg Peripheral Edema: bilateral: Trace - Gastrointestinal General gastrointestinal: Present: distended, normal bowel sounds, soft, tenderness - Neurologic Neurologic: Present: CNII-XII intact - Musculoskeletal Musculoskeletal: Present: generalized weakness, strength equal bilaterally - Psychiatric Psychiatric: Present: A&O x's 3, appropriate affect, intact judgment & insight - Labs CBC & Chem 7: 08/01/19 07:22 08/01/19 07:22 Labs: Abnormal Lab Results - Last 24 Hours (Table) 07/31/19 07/31/19 07/31/19 Range/Units 08:46 17:07 20:41 RBC (3.80-5.40) m/uL Hgb (11.4-16.0) gm/dL MCV (80.0-100.0) fL Plt Count (150-450) k/uL Chloride (98-107) mmol/L Carbon Dioxide (22-30) mmol/L Creatinine (0.52-1.04) mg/dL POC Glucose (mg/dL) 157 H 156 H (75-99) mg/dL Calcium (8.4-10.2) mg/dL Iron 49 L (50-170) ug/dL TIBC 164 L (228-460) ug/dL Total Bilirubin (0.2-1.3) mg/dL AST (14-36) U/L Alkaline Phosphatase (38-126) U/L Ammonia (<30) umol/L Albumin (3.5-5.0) g/dL 08/01/19 08/01/19 08/01/19 Range/Units 06:57 07:22 07:22 RBC 3.21 L (3.80-5.40) m/uL Hgb 11.2 L (11.4-16.0) gm/dL MCV 106.8 H (80.0-100.0) fL Plt Count 79 L (150-450) k/uL Chloride 113 H (98-107) mmol/L Carbon Dioxide 20 L (22-30) mmol/L Creatinine 1.08 H (0.52-1.04) mg/dL POC Glucose (mg/dL) 102 H (75-99) mg/dL Calcium 8.1 L (8.4-10.2) mg/dL Iron (50-170) ug/dL TIBC (228-460) ug/dL Total Bilirubin 1.7 H (0.2-1.3) mg/dL AST 95 H (14-36) U/L Alkaline Phosphatase 284 H (38-126) U/L Ammonia (<30) umol/L Albumin 2.6 L (3.5-5.0) g/dL 08/01/19 08/01/19 08/01/19 Range/Units 07:22 11:35 11:55 RBC (3.80-5.40) m/uL Hgb (11.4-16.0) gm/dL MCV (80.0-100.0) fL Plt Count (150-450) k/uL Chloride (98-107) mmol/L Carbon Dioxide (22-30) mmol/L Creatinine (0.52-1.04) mg/dL POC Glucose (mg/dL) 60 L 67 L (75-99) mg/dL Calcium (8.4-10.2) mg/dL Iron (50-170) ug/dL TIBC (228-460) ug/dL Total Bilirubin (0.2-1.3) mg/dL AST (14-36) U/L Alkaline Phosphatase (38-126) U/L Ammonia 34 H (<30) umol/L Albumin (3.5-5.0) g/dL 08/01/19 Range/Units 12:21 RBC (3.80-5.40) m/uL Hgb (11.4-16.0) gm/dL MCV (80.0-100.0) fL Plt Count (150-450) k/uL Chloride (98-107) mmol/L Carbon Dioxide (22-30) mmol/L Creatinine (0.52-1.04) mg/dL POC Glucose (mg/dL) 100 H (75-99) mg/dL Calcium (8.4-10.2) mg/dL Iron (50-170) ug/dL TIBC (228-460) ug/dL Total Bilirubin (0.2-1.3) mg/dL AST (14-36) U/L Alkaline Phosphatase (38-126) U/L Ammonia (<30) umol/L Albumin (3.5-5.0) g/dL Assessment and Plan (1) History of liver cancer Narrative/Plan: No recent f/u regarding the same. AFP 2.9, stable, WNL. No images are acutely necessary in regards to HCC, Oct would be 3 months. Encouraged pt to establish care with ONE doctor and try to keep appts and imaging at one institution for continuity of care. 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 No acute intervention Current Visit: Yes Status: Chronic Priority: Medium Code(s): D69.6 - THROMBOCYTOPENIA, UNSPECIFIED SNOMED Code(s): 928864961 (4) Macrocytic anemia Narrative/Plan: Iron deficiency. Pt had upper GI work up, pending biopsy. Parenteral iron ordered. Current Visit: Yes Status: Acute Priority: Medium Code(s): D53.9 - NUTRITIONAL ANEMIA, UNSPECIFIED SNOMED Code(s): 21077490 (5) Chronic abdominal pain Narrative/Plan: Pt has requested evaluation of abd to see if there is fluid enough to be removed. US ordered. Current Visit: Yes Status: Chronic Priority: Medium Code(s): R10.9 - UNSPECIFIED ABDOMINAL PAIN; G89.29 - OTHER CHRONIC PAIN SNOMED Code(s): 161478061
--- NOTE | 2019-08-01 15:24 | US ---
EXAMINATION TYPE: US abdomen limited DATE OF EXAM: 08/01/2019 COMPARISON: NONE CLINICAL HISTORY: evaluate for ascites for possible paracentesis. Swelling and pain. RUQ, RLQ, LUQ and LLQ scanned. Fluid seen in all four quadrants with most on the left. Small to moderate amount of abdominal ascites is seen on images saved most prominent in the left lowe r quadrant. IMPRESSION: As above.
--- NOTE | 2019-08-01 16:45 | US ---
EXAMINATION TYPE: US paracentesis abd w/image DATE OF EXAM: 08/01/2019 COMPARISON: NONE HISTORY: Ascites. PROCEDURE: Maximal barrier technique was utilized. The skin overlying a suitable pocket of fluid was localized with ultrasound and the overlying skin was prepped and draped. Ultrasound was utilized with sterile technique. Lidocaine was used for local anesthesia and a skin jenny made with a scalpel. Catheter was advanced under direct ultrasound guidance into a suitable pocket of fluid and approximately 4.7 liter s of serous fluid were removed. Catheter was withdrawn and hemostasis achieved. There is no immedia te complication; the patient is discharged in stable condition. IMPRESSION: STATUS POST ULTRASOUND GUIDED PARACENTESIS FOR PALLIATION OF ASCITES. THIS PROCEDURE WA S PERFORMED BY THE UNDERSIGNED. Specimen obtained for laboratory analysis.
[2019-08-01 17:02] LABS: Glucose,Whole Blood 77 mg/dL (75-99)
--- NOTE | 2019-08-01 18:06 | PN ---
PROGRESS NOTE DATE OF DICTATION: 08/01/2019 Patient is a 73-year-old pleasant white female with history of cirrhosis of the liver secondary to non-alcoholic fatty liver disease, admitted to the hospital with abdominal pain, nausea, vomiting of one week's duration. She had an upper endoscopy done yesterday that showed a small hiatal hernia and mild gastritis. The patient has been on Protonix as well as antiemetics. She still complains of abdominal pain. She also complains of some abdominal distention. Denies any rectal bleeding or melena. Patient was diagnosed with liver cirrhosis with hepatocellular carcinoma. She follows at [facility] and is status post chemoembolization in August of 2018. She complains of some abdominal distention today. No diarrhea or constipation. PHYSICAL EXAMINATION: She appears comfortable, in no apparent distress. VITAL SIGNS: Stable. Blood pressure is 115/66, pulse rate 56, temperature 98.3. HEENT EXAMINATION: Unremarkable. Conjunctivae pink. Sclerae anicteric. Oral cavity no lesions. NECK: No JVD or lymph node enlargement. CHEST: Clear to auscultation. HEART: Regular rate and rhythm. ABDOMEN: Slightly distended. Mild tenderness in the epigastric area. Colostomy in the right lower quadrant. EXTREMITIES: No pedal edema. SKIN: No rashes. NEUROLOGIC: Alert and oriented x3. No focal deficits. LABS: Labs from today show WBC 4.7, hemoglobin 11.2, platelets 79,000. Basic metabolic panel is within normal limits. T-bilirubin 1.7, AST 95, ALT 49, alkaline phosphatase 284. Alpha fetoprotein is 2.9. IMPRESSION: 1. Epigastric pain/nausea vomiting of one week's duration. EGD done yesterday showed antral gastritis and small hiatal hernia. 2. Abdominal distention secondary to ascites. Patient is scheduled for large-volume paracentesis today. Last one was performed a month ago. 3. History of cirrhosis of the liver secondary to non-alcoholic fatty liver disease with gradual decompensation. 4. Hepatocellular carcinoma diagnosed 2 years ago, status post chemoembolization at [facility] in August of 2018. She is being followed by Dr. Estrada on an outpatient basis. RECOMMENDATIONS: 1. Agree with large-volume paracentesis. 2. Continue with Protonix and antiemetics. 3. Fluid for cytology and cell count. 4. Low-salt diet. 5. Repeat labs in the morning. Thank you for this consultation. Will follow with you closely during her hospital stay. MMODL / IJN: [id number] /
[2019-08-01] MEDS: ALBUMIN HUMAN 25% 50 ML in EMPTY BAG 1 BAG IVPB SCH ×2 (18:25→19:58)
[2019-08-01 20:26] LABS: Glucose,Whole Blood 98 mg/dL (75-99)
[2019-08-02 02:37] LABS: Glucose,Whole Blood 93 mg/dL (75-99)
[2019-08-02 07:10] LABS: Glucose,Whole Blood 98 mg/dL (75-99)
[2019-08-02 07:36] LABS: Basophils % (A) 1 %; Eosinophils # (A) 0.2 k/uL (0-0.7); Eosinophils % (A) 5 %; HCT 32.4 % (34.0-46.0); HGB 10.7 gm/dL (11.4-16.0); Lymphocytes # (A) 0.8 k/uL (1.0-4.8); Lymphocytes % (A) 25 %; MCH 34.8 pg (25.0-35.0); MCHC 32.8 g/dL (31.0-37.0); Macrocytosis Moderate; Mean Platelet Volume 9.1; Monocytes # (A) 0.2 k/uL (0-1.0); Monocytes % (A) 7 %; Neutrophils # (A) 1.9 k/uL (1.3-7.7); Neutrophils % (A) 60 %; RBC 3.06 m/uL (3.80-5.40); RDW 15.4 % (11.5-15.5); WBC 3.1 k/uL (3.8-10.6)
[2019-08-02 07:47] LABS: Albumin 2.4 g/dL (3.5-5.0); Potassium 4.3 mmol/L (3.5-5.1); Total Bilirubin 2.1 mg/dL (0.2-1.3); Total Protein 5.5 g/dL (6.3-8.2)
[2019-08-02 07:59] LABS: Platelet Count 72 k/uL (150-450)
[2019-08-02] MEDS: SUCRALFATE 1 GM TAB PO SCH ×4 (09:12→22:23)
[2019-08-02] MEDS: FERROUS SULFATE 325 MG TAB PO SCH ×2 (09:12→22:29)
[2019-08-02] MEDS: PANTOPRAZOLE 40 MG TABLET PO SCH (09:12)
[2019-08-02] MEDS: METOPROLOL TARTRATE 25 MG TAB PO SCH (09:12)
[2019-08-02] MEDS: CHOLECALCIFEROL 1,000 UNIT TAB PO SCH (09:12)
[2019-08-02] MEDS: ISOSORBIDE MONONITRATE ER 30 MG TAB.ER.24H PO SCH (09:12)
[2019-08-02] MEDS: MORPHINE SULFATE ER 15 MG TABLET PO SCH ×2 (09:13→22:25)
[2019-08-02] MEDS: clonazePAM 0.5 MG TAB PO PRN (09:13)
[2019-08-02] MEDS: LACTULOSE 20 GM/30 ML CUP PO SCH ×3 (09:13→22:33)
[2019-08-02] MEDS: MORPHINE SULFATE 4 MG/ML SYRINGE IV PRN ×4 (09:14→23:03)
[2019-08-02] MEDS: SODIUM FERRIC GLUCONAT-SUCROSE 125 MG in SODIUM CHLORIDE 0.9% 100 ML IVPB SCH (09:15)
[2019-08-02] MEDS: RIFAXIMIN 550 MG TABLET PO SCH ×2 (09:15→22:22)
[2019-08-02] MEDS: buPROPion SR 150 MG TABLET.ER PO SCH ×2 (09:15→22:24)
[2019-08-02] MEDS: DICYCLOMINE 20 MG TAB PO SCH ×5 (09:15→22:33)
[2019-08-02] MEDS: INSULIN ASPART (NovoLOG) 100 UNIT/ML VIAL SQ SCH ×4 (09:16→22:48)
--- NOTE | 2019-08-02 10:27 | P.PN ---
Subjective Progress Note Date: 08/02/19 Charlene Keenan is a 73-year-old female well known to my practice who presented to [facility] emergency room with a chief complaint of abdominal pain nausea and vomiting, patient has a known history of liver cancer, she was recently admitted to [facility] with similar symptoms she was seen by gastroenterology and was treated symptomatically and was discharged home, however her symptoms worsened and she decided to come back to emergency room. Patient is complaining of feeling weak and complaining of nausea and vomiting and poor appetite there is no fever or chills no headache or dizziness no chest pain no shortness of breath no cough no diarrhea no burning with urination no frequency or urgency no hematuria weakness or numbness in any of her extremities no change in her vision speech or gait. On 07/31/2019 patient is alert and oriented 3. Patient is feeling improved today. Planning EGD per GI services. At this time patient denies chest pain or shortness of breath. Patient denies nausea vomiting or diarrhea. Patient denies any urinary burning frequency On 08/01/2019 patient's alert and oriented 3. Patient underwent EGD yesterday with Dr. Figueroa showing mild antral gastritis and no evidence of esophagitis or peptic ulcer disease. Patient is still having some abdominal discomfort with nausea. Per GI services advance diet as tolerated PT and OT will be consulted for possible ECF placement. At this time patient denies chest pain or shortness any urinary burning or frequency. Patient does report some nausea. On 08/02/2019 patient's alert and oriented 3. Patient is status post paracentesis with 4.7L removed. Patient's symptoms have improved. Patient denies chest pain or shortness of breath. Patient denies nausea vomiting or diarrhea. Patient denies any urinary burning or frequency. Patient has been tolerating diet. Social consult for discharge planning possible ECF the patient qualifies Objective - Vital Signs Vital signs: Vital Signs Temp 98.8 F 08/02/19 04:56 Pulse 74 08/02/19 04:56 Resp 16 08/02/19 04:56 BP 98/57 08/02/19 04:56 Pulse Ox 96 08/02/19 04:56 Intake & Output 08/01/19 08/02/19 08/02/19 18:59 06:59 18:59 Intake Total 400 125 Balance 400 125 Intake: Intake, IV Titration 400 50 Amount Albumin Human 25% 50 ml 50 In Empty Bag 1 bag @ 50 mls/hr IVPB Q1H [facility] Rx#: [id number] Sodium Chloride 0.9% 1, 300 000 ml @ 75 mls/hr IV . [id number] [facility] Rx#:[id number] Sodium Ferric Gluconat- 100 Sucrose 125 mg In Sodium Chloride 0.9% 100 ml @ 100 mls/hr IVPB DAILY [facility] Rx#:[id number] Oral 75 Other: Voiding Method Toilet # Voids 3 - Exam Narrative patient is alert and oriented 3 in no apparent distress HEENT head normocephalic and atraumatic Neck is supple no JVD no goiter no lymphadenopathy Chest exam reveals a few scattered rhonchi no crackles no wheezing Cardiac exam reveals regular heart sounds no gallops no murmurs Abdomen is soft, with mild diffuse tenderness, mild distention in the abdomen with possible ascites, no organomegaly with normal bowel sounds Extremity exam reveals no edema no cyanosis or clubbing Neurological examination reveals no gross focal deficit - Labs CBC & Chem 7: 08/02/19 07:17 08/02/19 07:17 Labs: Abnormal Lab Results - Last 24 Hours (Table) 08/01/19 08/01/19 08/01/19 Range/Units 11:35 11:55 12:21 WBC (3.8-10.6) k/uL RBC (3.80-5.40) m/uL Hgb (11.4-16.0) gm/dL Hct (34.0-46.0) % MCV (80.0-100.0) fL Plt Count (150-450) k/uL Lymphocytes # (1.0-4.8) k/uL Chloride (98-107) mmol/L Carbon Dioxide (22-30) mmol/L Creatinine (0.52-1.04) mg/dL POC Glucose (mg/dL) 60 L 67 L 100 H (75-99) mg/dL Calcium (8.4-10.2) mg/dL Total Bilirubin (0.2-1.3) mg/dL AST (14-36) U/L Alkaline Phosphatase (38-126) U/L Total Protein (6.3-8.2) g/dL Albumin (3.5-5.0) g/dL 08/02/19 08/02/19 Range/Units 07:17 07:17 WBC 3.1 L (3.8-10.6) k/uL RBC 3.06 L (3.80-5.40) m/uL Hgb 10.7 L (11.4-16.0) gm/dL Hct 32.4 L (34.0-46.0) % MCV 106.0 H (80.0-100.0) fL Plt Count 72 L (150-450) k/uL Lymphocytes # 0.8 L (1.0-4.8) k/uL Chloride 112 H (98-107) mmol/L Carbon Dioxide 19 L (22-30) mmol/L Creatinine 1.10 H (0.52-1.04) mg/dL POC Glucose (mg/dL) (75-99) mg/dL Calcium 8.0 L (8.4-10.2) mg/dL Total Bilirubin 2.1 H (0.2-1.3) mg/dL AST 67 H (14-36) U/L Alkaline Phosphatase 235 H (38-126) U/L Total Protein 5.5 L (6.3-8.2) g/dL Albumin 2.4 L (3.5-5.0) g/dL Assessment and Plan Assessment: #1 abdominal pain nausea and vomiting. Status post EGD showing mild antral gastritis no evidence of esophagitis or peptic ulcer disease. Advanced diet as tolerated. Per GI services continue Protonix 40 mg daily and antiemetics. #2 poor appetite due to nausea and vomiting #3 underlying history of hepatocellular carcinoma. Oncology service is following #4 underlying history of liver cirrhosis #5 underlying history of hypertension #6 underlying history of insulin-dependent diabetes mellitus #7 underlying history of depression #8 anemia of chronic disease related to known hepatocellular carcinoma. #9 pancytopenia elevated to hepatocellular carcinoma #10 acities secondary to chronic liver disease. s/p paracentesis 4.7L removed. DVT prophylaxis SCDs due to thrombocytopenia. GI prophylaxis Protonix PT OT consulted. Social consulted for possible ECF placement I performed an examination of the patient and discussed their management with the Nurse Practitioner. I have reviewed the Nurse Practitioner's notes and agree with the documented findings and plan of care
[2019-08-02 11:55] LABS: Glucose,Whole Blood 172 mg/dL (75-99)
--- NOTE | 2019-08-02 16:08 | P.PN ---
Subjective Progress Note Date: 08/02/19 Principal diagnosis: intractable nausea and vomiting In follow-up today patient continues to complain of upper abdominal discomfort, more focused on the site of needle insertion for paracentesis. Objective - Vital Signs Vital signs: Vital Signs Temp 98.7 F 08/02/19 12:05 Pulse 64 08/02/19 12:05 Resp 16 08/02/19 12:05 BP 110/51 08/02/19 12:05 Pulse Ox 98 08/02/19 12:05 Intake & Output 08/01/19 08/02/19 08/02/19 18:59 06:59 18:59 Intake Total 400 125 650 Balance 400 125 650 Weight 98.2 kg Intake: Intake, IV Titration 400 50 100 Amount Albumin Human 25% 50 ml 50 In Empty Bag 1 bag @ 50 mls/hr IVPB Q1H [facility] Rx#: [id number] Sodium Chloride 0.9% 1, 300 000 ml @ 75 mls/hr IV . [id number] [facility] Rx#:[id number] Sodium Ferric Gluconat- 100 100 Sucrose 125 mg In Sodium Chloride 0.9% 100 ml @ 100 mls/hr IVPB DAILY [facility] Rx#:[id number] Oral 75 550 Other: Voiding Method Toilet Toilet # Voids 3 3 - Labs CBC & Chem 7: 08/02/19 07:17 08/02/19 07:17 Labs: Abnormal Lab Results - Last 24 Hours (Table) 08/02/19 08/02/19 08/02/19 Range/Units 07:17 07:17 11:46 WBC 3.1 L (3.8-10.6) k/uL RBC 3.06 L (3.80-5.40) m/uL Hgb 10.7 L (11.4-16.0) gm/dL Hct 32.4 L (34.0-46.0) % MCV 106.0 H (80.0-100.0) fL Plt Count 72 L (150-450) k/uL Lymphocytes # 0.8 L (1.0-4.8) k/uL Chloride 112 H (98-107) mmol/L Carbon Dioxide 19 L (22-30) mmol/L Creatinine 1.10 H (0.52-1.04) mg/dL POC Glucose (mg/dL) 172 H (75-99) mg/dL Calcium 8.0 L (8.4-10.2) mg/dL Total Bilirubin 2.1 H (0.2-1.3) mg/dL AST 67 H (14-36) U/L Alkaline Phosphatase 235 H (38-126) U/L Total Protein 5.5 L (6.3-8.2) g/dL Albumin 2.4 L (3.5-5.0) g/dL Assessment and Plan (1) History of liver cancer Narrative/Plan: No recent f/u regarding the same. AFP 2.9, stable, WNL. No images are acutely necessary in regards to HCC, Oct would be 3 months. Encouraged pt to establish care with ONE doctor and try to keep appts and imaging at one institution for continuity of care. 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 No acute intervention Current Visit: Yes Status: Chronic Priority: Medium Code(s): D69.6 - THROMBOCYTOPENIA, UNSPECIFIED SNOMED Code(s): 274687818 (4) Macrocytic anemia Narrative/Plan: Iron deficiency. EGD unremarkable, stomach biopsy negative for malignancy, gastritis diagnosed. Parenteral iron ordered. Current Visit: Yes Status: Acute Priority: Medium Code(s): D53.9 - NUTRITIONAL ANEMIA, UNSPECIFIED SNOMED Code(s): 06921727 (5) Chronic abdominal pain Narrative/Plan: Patient is status post 4.3 L paracentesis. Still has complaints of abdominal pain across the upper portion of her abdomen, more concentrated in the area of needle placement from paracentesis. Continue current analgesics. Cytology is pending on acetic fluid. Current Visit: Yes Status: Chronic Priority: Medium Code(s): R10.9 - UNSPECIFIED ABDOMINAL PAIN; G89.29 - OTHER CHRONIC PAIN SNOMED Code(s): 063965366 (6) Leukopenia Narrative/Plan: Low white blood cell count is noted intermittently throughout multiple hospitalizations. ANC is adequate. Most of the time her absolute lymphocyte count dropped slightly. No acute intervention. Current Visit: Yes Status: Acute Priority: Medium Code(s): D72.819 - DECREASED WHITE BLOOD CELL COUNT, UNSPECIFIED SNOMED Code(s): 94281170
[2019-08-02 17:06] LABS: Glucose,Whole Blood 182 mg/dL (75-99)
--- NOTE | 2019-08-02 17:31 | PN ---
PROGRESS NOTE DATE OF DICTATION: 08/02/2019 The patient is a 73-year-old pleasant white female admitted to the hospital because of abdominal pain, nausea, vomiting and abdominal distention. She underwent large-volume paracentesis today and approximately 4.5 L of fluid was aspirated. Despite the paracentesis she still continues to complain of abdominal pain, mostly at the site of the paracentesis. However, there was no leakage noted. She denies any nausea, vomiting. Tolerating diet well. Reports no fever, chills, night sweats. PHYSICAL EXAMINATION: She appears comfortable. No apparent distress. VITAL SIGNS: Stable. Blood pressure is 98/57, pulse rate 64, temperature 98.7. HEENT examination unremarkable. Conjunctivae pink. Sclerae anicteric. Oral cavity no lesions. NECK: No JVD or lymph node enlargement. CHEST: Clear to auscultation. HEART: Regular rate and rhythm. ABDOMEN: Soft. It was slightly distended. There was mild tenderness around the paracentesis site, but the rest of the abdomen appeared benign. Ileostomy located in the right lower quadrant area. EXTREMITIES: No pedal edema. SKIN: No rashes. NEUROLOGIC: Alert and oriented x3. No focal deficits. LABS: Labs from today show WBC 3.1, hemoglobin 10.7, platelets 72,000. Basic metabolic panel is within normal limits. Bilirubin is 2.1, AST 67, ALT 38, alkaline phosphatase 235. Alpha fetoprotein is normal. Fluid cytology pending. IMPRESSION: 1. Diffuse abdominal pain associated with intermittent episodes of nausea and vomiting, status post EGD two days ago that showed mild gastritis. 2. Ascites, status post large-volume paracentesis yesterday; 4.5 L of fluid was aspirated. 3. Cirrhosis of the liver secondary to fatty liver disease, which appears to be stable. 4. Hepatocellular carcinoma/cirrhosis of the liver, status post treatment at [facility] in August of 2018. Alpha fetoprotein is normal. RECOMMENDATIONS: 1. Will start her on low-dose diuretics with Lasix 20 mg daily and Aldactone 50 mg daily because of the ascites. 2. Low-salt diet. 3. Continue with all current medications. 4. If she continues to complain of persistent abdominal pain, we may obtain a CT of the abdomen and pelvis to investigate this further. 5. Repeat labs in the morning. Will follow up with you closely during her hospital stay. Thank you for this consultation. MMLOUL / IJN: [id number] /
[2019-08-02 20:42] LABS: Glucose,Whole Blood 92 mg/dL (75-99)
[2019-08-03 01:53] LABS: Glucose,Whole Blood 162 mg/dL (75-99)
[2019-08-03 06:54] LABS: Glucose,Whole Blood 131 mg/dL (75-99)
[2019-08-03 08:23] LABS: Basophils % (A) 0 %; Eosinophils # (A) 0.2 k/uL (0-0.7); Eosinophils % (A) 6 %; HCT 33.1 % (34.0-46.0); HGB 10.6 gm/dL (11.4-16.0); Hypochromasia Slight; Lymphocytes # (A) 0.8 k/uL (1.0-4.8); Lymphocytes % (A) 24 %; MCH 34.4 pg (25.0-35.0); MCHC 32.1 g/dL (31.0-37.0); Macrocytosis Moderate; Mean Platelet Volume 9.1; Monocytes # (A) 0.2 k/uL (0-1.0); Monocytes % (A) 7 %; Neutrophils # (A) 2.1 k/uL (1.3-7.7); Neutrophils % (A) 60 %; RBC 3.09 m/uL (3.80-5.40); RDW 15.2 % (11.5-15.5); WBC 3.4 k/uL (3.8-10.6)
[2019-08-03 08:32] LABS: Albumin 2.4 g/dL (3.5-5.0); Calcium 8.1 mg/dL (8.4-10.2); Potassium 4.2 mmol/L (3.5-5.1); Total Bilirubin 1.8 mg/dL (0.2-1.3); Total Protein 5.6 g/dL (6.3-8.2)
[2019-08-03 08:56] LABS: Platelet Count 69 k/uL (150-450)
[2019-08-03] MEDS: MORPHINE SULFATE ER 15 MG TABLET PO SCH ×2 (09:16→21:55)
[2019-08-03] MEDS: SUCRALFATE 1 GM TAB PO SCH ×4 (09:16→21:56)
[2019-08-03] MEDS: SPIRONOLACTONE 25 MG TAB PO SCH (09:17)
[2019-08-03] MEDS: FUROSEMIDE 40 MG TAB PO SCH (09:17)
[2019-08-03] MEDS: LACTULOSE 20 GM/30 ML CUP PO SCH ×3 (09:17→17:34)
[2019-08-03] MEDS: METOPROLOL TARTRATE 25 MG TAB PO SCH (09:17)
[2019-08-03] MEDS: clonazePAM 0.5 MG TAB PO PRN (09:17)
[2019-08-03] MEDS: CHOLECALCIFEROL 1,000 UNIT TAB PO SCH (09:17)
[2019-08-03] MEDS: FERROUS SULFATE 325 MG TAB PO SCH ×2 (09:17→21:55)
[2019-08-03] MEDS: PANTOPRAZOLE 40 MG TABLET PO SCH (09:17)
[2019-08-03] MEDS: SODIUM FERRIC GLUCONAT-SUCROSE 125 MG in SODIUM CHLORIDE 0.9% 100 ML IVPB SCH (09:17)
[2019-08-03] MEDS: ISOSORBIDE MONONITRATE ER 30 MG TAB.ER.24H PO SCH (09:17)
[2019-08-03] MEDS: RIFAXIMIN 550 MG TABLET PO SCH ×2 (09:19→21:56)
[2019-08-03] MEDS: DICYCLOMINE 20 MG TAB PO SCH ×4 (09:19→21:56)
[2019-08-03] MEDS: INSULIN ASPART (NovoLOG) 100 UNIT/ML VIAL SQ SCH ×4 (09:39→21:55)
[2019-08-03] MEDS: buPROPion SR 150 MG TABLET.ER PO SCH ×2 (09:40→21:55)
[2019-08-03 10:25] VITALS: BMI 32.5
--- NOTE | 2019-08-03 10:42 | P.PN ---
Subjective Progress Note Date: 08/03/19 Charlene Keenan is a 73-year-old female well known to my practice who presented to [facility] emergency room with a chief complaint of abdominal pain nausea and vomiting, patient has a known history of liver cancer, she was recently admitted to [facility] with similar symptoms she was seen by gastroenterology and was treated symptomatically and was discharged home, however her symptoms worsened and she decided to come back to emergency room. Patient is complaining of feeling weak and complaining of nausea and vomiting and poor appetite there is no fever or chills no headache or dizziness no chest pain no shortness of breath no cough no diarrhea no burning with urination no frequency or urgency no hematuria weakness or numbness in any of her extremities no change in her vision speech or gait. On 07/31/2019 patient is alert and oriented 3. Patient is feeling improved today. Planning EGD per GI services. At this time patient denies chest pain or shortness of breath. Patient denies nausea vomiting or diarrhea. Patient denies any urinary burning frequency On 08/01/2019 patient's alert and oriented 3. Patient underwent EGD yesterday with Dr. Figueroa showing mild antral gastritis and no evidence of esophagitis or peptic ulcer disease. Patient is still having some abdominal discomfort with nausea. Per GI services advance diet as tolerated PT and OT will be consulted for possible ECF placement. At this time patient denies chest pain or shortness any urinary burning or frequency. Patient does report some nausea. On 08/02/2019 patient's alert and oriented 3. Patient is status post paracentesis with 4.7L removed. Patient's symptoms have improved. Patient denies chest pain or shortness of breath. Patient denies nausea vomiting or diarrhea. Patient denies any urinary burning or frequency. Patient has been tolerating diet. Social consult for discharge planning possible ECF the patient qualifies 08/03/2019 patient's alert and oriented 3. Patient claims increased cough and upper respirations symptoms. At this time will order chest x-ray. Patient also complaining about soreness to tongue upon examination patient noticed to have growth to right underside of tongue. Will consult ENT to further evaluate. Patient reports some improvement with abdominal pain. Patient denies chest pain. Patient still having occasional nausea. Patient denies any urinary burning or frequency Objective - Vital Signs Vital signs: Vital Signs Temp 98.2 F 08/03/19 05:00 Pulse 65 08/03/19 05:00 Resp 16 08/03/19 05:00 BP 95/52 08/03/19 05:00 Pulse Ox 98 08/03/19 05:00 Intake & Output 08/02/19 08/03/19 08/03/19 18:59 06:59 18:59 Intake Total 650 Balance 650 Weight 98.2 kg 100 kg Intake: Intake, IV Titration 100 Amount Sodium Ferric Gluconat- 100 Sucrose 125 mg In Sodium Chloride 0.9% 100 ml @ 100 mls/hr IVPB DAILY [facility] Rx#:[id number] Oral 550 Other: Voiding Method Toilet Toilet Toilet # Voids 3 1 - Exam Narrative patient is alert and oriented 3 in no apparent distress HEENT head normocephalic and atraumatic. Growth noted to right underside of tongue Neck is supple no JVD no goiter no lymphadenopathy Chest exam reveals a few scattered rhonchi no crackles no wheezing Cardiac exam reveals regular heart sounds no gallops no murmurs Abdomen is soft, with mild diffuse tenderness, mild distention in the abdomen w ith possible ascites, no organomegaly with normal bowel sounds Extremity exam reveals no edema no cyanosis or clubbing Neurological examination reveals no gross focal deficit - Labs CBC & Chem 7: 08/03/19 07:48 08/03/19 07:48 Labs: Abnormal Lab Results - Last 24 Hours (Table) 08/02/19 08/02/19 08/03/19 Range/Units 11:46 17:05 01:52 WBC (3.8-10.6) k/uL RBC (3.80-5.40) m/uL Hgb (11.4-16.0) gm/dL Hct (34.0-46.0) % MCV (80.0-100.0) fL Plt Count (150-450) k/uL Lymphocytes # (1.0-4.8) k/uL Chloride (98-107) mmol/L Carbon Dioxide (22-30) mmol/L Glucose (74-99) mg/dL POC Glucose (mg/dL) 172 H 182 H 162 H (75-99) mg/dL Calcium (8.4-10.2) mg/dL Total Bilirubin (0.2-1.3) mg/dL AST (14-36) U/L Alkaline Phosphatase (38-126) U/L Total Protein (6.3-8.2) g/dL Albumin (3.5-5.0) g/dL 08/03/19 08/03/19 08/03/19 Range/Units 06:51 07:48 07:48 WBC 3.4 L (3.8-10.6) k/uL RBC 3.09 L (3.80-5.40) m/uL Hgb 10.6 L (11.4-16.0) gm/dL Hct 33.1 L (34.0-46.0) % MCV 107.0 H (80.0-100.0) fL Plt Count 69 L (150-450) k/uL Lymphocytes # 0.8 L (1.0-4.8) k/uL Chloride 113 H (98-107) mmol/L Carbon Dioxide 19 L (22-30) mmol/L Glucose 137 H (74-99) mg/dL POC Glucose (mg/dL) 131 H (75-99) mg/dL Calcium 8.1 L (8.4-10.2) mg/dL Total Bilirubin 1.8 H (0.2-1.3) mg/dL AST 57 H (14-36) U/L Alkaline Phosphatase 244 H (38-126) U/L Total Protein 5.6 L (6.3-8.2) g/dL Albumin 2.4 L (3.5-5.0) g/dL Assessment and Plan Assessment: #1 abdominal pain nausea and vomiting. Status post EGD showing mild antral gastritis no evidence of esophagitis or peptic ulcer disease. Advanced diet as tolerated. Per GI services continue Protonix 40 mg daily and antiemetics. #2 poor appetite due to nausea and vomiting #3 underlying history of hepatocellular carcinoma. Oncology service is following #4 underlying history of liver cirrhosis #5 underlying history of hypertension #6 underlying history of insulin-dependent diabetes mellitus #7 underlying history of depression #8 anemia of chronic disease related to known hepatocellular carcinoma. IV iron ordered per oncology services #9 pancytopenia elevated to hepatocellular carcinoma #10 acities secondary to chronic liver disease. s/p paracentesis 4.7L removed. #11. Growth noted to right side of tongue. ENT has been consulted to further evaluate #12. Increased congestion with upper respiratory symptoms will order chest x- ray DVT prophylaxis SCDs due to thrombocytopenia. GI prophylaxis Protonix PT OT consulted. Social consulted for possible ECF placement I performed an examination of the patient and discussed their management with the Nurse Practitioner. I have reviewed the Nurse Practitioner's notes and agree with the documented findings and plan of care
--- NOTE | 2019-08-03 11:06 | P.PN ---
Subjective Progress Note Date: 08/03/19 Principal diagnosis: intractable nausea and vomiting In follow-up today patient c/o sorethraot, dry cough, malaise, continues to complain of upper abdominal discomfort, persistent but, not progressive Objective - Vital Signs Vital signs: Vital Signs Temp 98.2 F 08/03/19 05:00 Pulse 65 08/03/19 05:00 Resp 16 08/03/19 05:00 BP 95/52 08/03/19 05:00 Pulse Ox 98 08/03/19 05:00 Intake & Output 08/02/19 08/03/19 08/03/19 18:59 06:59 18:59 Intake Total 650 Balance 650 Weight 98.2 kg 100 kg Intake: Intake, IV Titration 100 Amount Sodium Ferric Gluconat- 100 Sucrose 125 mg In Sodium Chloride 0.9% 100 ml @ 100 mls/hr IVPB DAILY [facility] Rx#:[id number] Oral 550 Other: Voiding Method Toilet Toilet Toilet # Voids 3 1 - Constitutional General appearance: Present: cooperative, no acute distress, obese - EENT EENT Comment(s): right lateral tongue area of excoriation, scant coating of the tongue posteriorly, oropharynx is not red Eyes: Present: anicteric sclerae, EOMI, poor dentition ENT: Present: hearing grossly normal - Respiratory Respiratory: bilateral: CTA - Cardiovascular Heart sounds: normal: S1, S2 - Peripheral edema leg Peripheral Edema: bilateral: None - Gastrointestinal General gastrointestinal: Present: soft, tenderness - Neurologic Neurologic: Present: CNII-XII intact - Psychiatric Psychiatric: Present: A&O x's 3, appropriate affect, intact judgment & insight - Labs CBC & Chem 7: 08/03/19 07:48 08/03/19 07:48 Labs: Abnormal Lab Results - Last 24 Hours (Table) 08/02/19 08/02/19 08/03/19 Range/Units 11:46 17:05 01:52 WBC (3.8-10.6) k/uL RBC (3.80-5.40) m/uL Hgb (11.4-16.0) gm/dL Hct (34.0-46.0) % MCV (80.0-100.0) fL Plt Count (150-450) k/uL Lymphocytes # (1.0-4.8) k/uL Chloride (98-107) mmol/L Carbon Dioxide (22-30) mmol/L Glucose (74-99) mg/dL POC Glucose (mg/dL) 172 H 182 H 162 H (75-99) mg/dL Calcium (8.4-10.2) mg/dL Total Bilirubin (0.2-1.3) mg/dL AST (14-36) U/L Alkaline Phosphatase (38-126) U/L Total Protein (6.3-8.2) g/dL Albumin (3.5-5.0) g/dL 08/03/19 08/03/19 08/03/19 Range/Units 06:51 07:48 07:48 WBC 3.4 L (3.8-10.6) k/uL RBC 3.09 L (3.80-5.40) m/uL Hgb 10.6 L (11.4-16.0) gm/dL Hct 33.1 L (34.0-46.0) % MCV 107.0 H (80.0-100.0) fL Plt Count 69 L (150-450) k/uL Lymphocytes # 0.8 L (1.0-4.8) k/uL Chloride 113 H (98-107) mmol/L Carbon Dioxide 19 L (22-30) mmol/L Glucose 137 H (74-99) mg/dL POC Glucose (mg/dL) 131 H (75-99) mg/dL Calcium 8.1 L (8.4-10.2) mg/dL Total Bilirubin 1.8 H (0.2-1.3) mg/dL AST 57 H (14-36) U/L Alkaline Phosphatase 244 H (38-126) U/L Total Protein 5.6 L (6.3-8.2) g/dL Albumin 2.4 L (3.5-5.0) g/dL Assessment and Plan (1) History of liver cancer Narrative/Plan: No recent f/u regarding the same. AFP 2.9, stable, WNL. No images are acutely necessary in regards to HCC, Oct would be 3 months. Encouraged pt to establish care with ONE doctor and try to keep appts and imaging at one institution for continuity of care. 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 No acute intervention Current Visit: Yes Status: Chronic Priority: Medium Code(s): D69.6 - THROMBOCYTOPENIA, UNSPECIFIED SNOMED Code(s): 208979140 (4) Macrocytic anemia Narrative/Plan: Iron deficiency. EGD unremarkable, stomach biopsy negative for malignancy, gastritis diagnosed. Parenteral iron ordered. Current Visit: Yes Status: Acute Priority: Medium Code(s): D53.9 - NUTRITIONAL ANEMIA, UNSPECIFIED SNOMED Code(s): 10250405 (5) Chronic abdominal pain Narrative/Plan: Patient is status post 4.3 L paracentesis. Continue current analgesics. Cytology is pending on acitic fluid. Current Visit: Yes Status: Chronic Priority: Medium Code(s): R10.9 - UNSPECIFIED ABDOMINAL PAIN; G89.29 - OTHER CHRONIC PAIN SNOMED Code(s): 223641212 (6) Leukopenia Narrative/Plan: Low white blood cell count is noted intermittently throughout multiple hospitalizations. ANC is adequate. Most of the time her absolute lymphocyte count dropped slightly. No acute intervention. Current Visit: Yes Status: Acute Priority: Medium Code(s): D72.819 - DECREASED WHITE BLOOD CELL COUNT, UNSPECIFIED SNOMED Code(s): 60630203 (7) Mucositis Narrative/Plan: Mild, cools solution ordered Current Visit: Yes Status: Acute Priority: Low Code(s): K12.30 - ORAL MUCOSITIS (ULCERATIVE), UNSPECIFIED SNOMED Code(s): 48848184 Plan: Pt going to rehab
[2019-08-03 11:50] LABS: Glucose,Whole Blood 178 mg/dL (75-99)
[2019-08-03] MEDS: MAG HYDROX/AL HYDROX/SIMETH 30 ML, LIDOCAINE VISCOUS 30 ML, diphenhydrAMINE ELIXIR 75 M... PO SCH ×12 (12:42→21:57)
[2019-08-03] MEDS: BENZOCAINE/MENTHOL LOZENG 1 EACH LOZENGE MUCOUS MEM PRN ×2 (12:42→21:57)
--- NOTE | 2019-08-03 14:10 | XR ---
EXAMINATION TYPE: XR chest 2V DATE OF EXAM: 08/03/2019 COMPARISON: 07/22/2019 HISTORY: Shortness of breath TECHNIQUE: Frontal and lateral views of the chest are obtained. FINDINGS: Scattered senescent parenchymal changes noted. Hyperinflation compatible with COPD. No evidence for infiltrate. No evidence for atelectasis. Heart size is stable. Mediastinal structures are stable and grossly unremarkable. No evidence for hilar prominence. Degenerative changes dorsal spine. IMPRESSION: 1. No evidence for acute pulmonary disease.
[2019-08-03 16:49] LABS: Glucose,Whole Blood 127 mg/dL (75-99)
--- NOTE | 2019-08-03 19:47 | PN ---
PROGRESS NOTE DATE OF DICTATION: 08/03/2019 Patient is a 73-year-old pleasant white female with history of nonalcoholic fatty liver disease and liver cirrhosis, admitted to the hospital with abdominal pain. She underwent an upper endoscopy 5 days ago that showed some gastritis and small hiatal hernia. She had large-volume paracentesis done with approximately 4 L of fluid removed yesterday. Following the procedure, she started complaining of some left-sided abdominal pain that has significantly improved. Today she complains of soreness in her mouth. She has some discomfort in her back. No further episodes of nausea, vomiting. No diarrhea. PHYSICAL EXAMINATION: She appears comfortable. No apparent distress. VITAL SIGNS: Stable. Blood pressure is 117/58, pulse rate 74, temperature 98.7. HEENT examination unremarkable. Conjunctivae pink. Sclerae anicteric. Oral cavity no lesions. NECK: No JVD or lymph node enlargement. CHEST: Clear to auscultation. HEART: Regular rate and rhythm. ABDOMEN: Soft. Bowel sounds are positive. Mild tenderness in the lower abdomen. Ileostomy in place in the right lower quadrant. EXTREMITIES: No pedal edema. SKIN: No rashes. NEUROLOGIC: Alert and oriented x3. No focal deficits. LABS: Labs from today show WBC 3.4, hemoglobin 10.6, platelets 69,000, T-bilirubin 1.8, AST 57, ALT 39, alkaline phosphatase 244. IMPRESSION: 1. Abdominal pain/nausea and vomiting, gradually improving, status post EGD 4 days ago that showed some gastritis and small hiatal hernia. 2. Cirrhosis secondary to nonalcoholic fatty liver disease with gradual decompensation. 3. Ascites, status post large-volume paracentesis 2 days ago; feeling much better. 4. Thrombocytopenia secondary to cirrhosis of the liver. RECOMMENDATIONS: 1. Continue with Protonix 40 mg daily. 2. Low-salt diet. 3. Continue with the present dose of diuretics, Aldactone 50 mg daily and Lasix 40 mg daily. 4. Continue with Xifaxan and lactulose. We will follow with you closely during her hospital stay. Thank you for this consultation. MMLOUL / MORENO: [id number] /
[2019-08-03] MEDS: MORPHINE SULFATE 4 MG/ML SYRINGE IV PRN (19:54)
[2019-08-03 20:07] LABS: Glucose,Whole Blood 225 mg/dL (75-99)
[2019-08-04 07:25] LABS: Glucose,Whole Blood 119 mg/dL (75-99)
[2019-08-04 08:53] LABS: Anisocytosis Slight; Basophils % (A) 1 %; Eosinophils # (A) 0.3 k/uL (0-0.7); Eosinophils % (A) 5 %; HCT 34.7 % (34.0-46.0); HGB 11.5 gm/dL (11.4-16.0); Lymphocytes # (A) 0.9 k/uL (1.0-4.8); Lymphocytes % (A) 18 %; MCH 35.2 pg (25.0-35.0); MCV 106.6 fL (80.0-100.0); Macrocytosis Moderate; Mean Platelet Volume 8.3; Monocytes # (A) 0.4 k/uL (0-1.0); Monocytes % (A) 7 %; Neutrophils # (A) 3.1 k/uL (1.3-7.7); Neutrophils % (A) 66 %; RBC 3.26 m/uL (3.80-5.40); RDW 16.5 % (11.5-15.5); WBC 4.8 k/uL (3.8-10.6)
[2019-08-04 08:54] LABS: Platelet Count 79 k/uL (150-450)
[2019-08-04] MEDS: INSULIN ASPART (NovoLOG) 100 UNIT/ML VIAL SQ SCH ×4 (09:00→21:08)
[2019-08-04 09:04] LABS: Albumin 2.6 g/dL (3.5-5.0); Calcium 8.2 mg/dL (8.4-10.2); Potassium 3.6 mmol/L (3.5-5.1); Total Bilirubin 2.5 mg/dL (0.2-1.3)
[2019-08-04] MEDS: LACTULOSE 20 GM/30 ML CUP PO SCH ×3 (09:07→17:17)
[2019-08-04] MEDS: FUROSEMIDE 40 MG TAB PO SCH (09:08)
[2019-08-04] MEDS: SUCRALFATE 1 GM TAB PO SCH ×4 (09:08→21:09)
[2019-08-04] MEDS: CHOLECALCIFEROL 1,000 UNIT TAB PO SCH (09:08)
[2019-08-04] MEDS: ISOSORBIDE MONONITRATE ER 30 MG TAB.ER.24H PO SCH (09:08)
[2019-08-04] MEDS: SPIRONOLACTONE 25 MG TAB PO SCH (09:08)
[2019-08-04] MEDS: MORPHINE SULFATE ER 15 MG TABLET PO SCH ×2 (09:09→21:17)
[2019-08-04] MEDS: METOPROLOL TARTRATE 25 MG TAB PO SCH (09:10)
[2019-08-04] MEDS: FERROUS SULFATE 325 MG TAB PO SCH ×2 (09:10→21:07)
[2019-08-04] MEDS: PANTOPRAZOLE 40 MG TABLET PO SCH (09:11)
[2019-08-04] MEDS: RIFAXIMIN 550 MG TABLET PO SCH ×2 (09:12→21:08)
[2019-08-04] MEDS: buPROPion SR 150 MG TABLET.ER PO SCH ×2 (09:12→21:07)
[2019-08-04] MEDS: DICYCLOMINE 20 MG TAB PO SCH ×4 (09:12→21:09)
[2019-08-04] MEDS: MAG HYDROX/AL HYDROX/SIMETH 30 ML, LIDOCAINE VISCOUS 30 ML, diphenhydrAMINE ELIXIR 75 M... PO SCH ×12 (09:14→21:09)
[2019-08-04] MEDS: BENZOCAINE/MENTHOL LOZENG 1 EACH LOZENGE MUCOUS MEM PRN ×2 (10:16→19:47)
[2019-08-04] MEDS ORDERED: guaiFENesin 600 MG TABLET.ER PO PRN (10:54)
--- NOTE | 2019-08-04 10:56 | P.PN ---
Subjective Progress Note Date: 08/04/19 Charlene Keenan is a 73-year-old female well known to my practice who presented to [facility] emergency room with a chief complaint of abdominal pain nausea and vomiting, patient has a known history of liver cancer, she was recently admitted to [facility] with similar symptoms she was seen by gastroenterology and was treated symptomatically and was discharged home, however her symptoms worsened and she decided to come back to emergency room. Patient is complaining of feeling weak and complaining of nausea and vomiting and poor appetite there is no fever or chills no headache or dizziness no chest pain no shortness of breath no cough no diarrhea no burning with urination no frequency or urgency no hematuria weakness or numbness in any of her extremities no change in her vision speech or gait. On 07/31/2019 patient is alert and oriented 3. Patient is feeling improved today. Planning EGD per GI services. At this time patient denies chest pain or shortness of breath. Patient denies nausea vomiting or diarrhea. Patient denies any urinary burning frequency On 08/01/2019 patient's alert and oriented 3. Patient underwent EGD yesterday with Dr. Figueroa showing mild antral gastritis and no evidence of esophagitis or peptic ulcer disease. Patient is still having some abdominal discomfort with nausea. Per GI services advance diet as tolerated PT and OT will be consulted for possible ECF placement. At this time patient denies chest pain or shortness any urinary burning or frequency. Patient does report some nausea. On 08/02/2019 patient's alert and oriented 3. Patient is status post paracentesis with 4.7L removed. Patient's symptoms have improved. Patient denies chest pain or shortness of breath. Patient denies nausea vomiting or diarrhea. Patient denies any urinary burning or frequency. Patient has been tolerating diet. Social consult for discharge planning possible ECF the patient qualifies 08/03/2019 patient's alert and oriented 3. Patient claims increased cough and upper respirations symptoms. At this time will order chest x-ray. Patient also complaining about soreness to tongue upon examination patient noticed to have growth to right underside of tongue. Will consult ENT to further evaluate. Patient reports some improvement with abdominal pain. Patient denies chest pain. Patient still having occasional nausea. Patient denies any urinary burning or frequency On 08/04/2019 patient's alert and oriented 3. Patient complaint of upper respiratory symptoms. Chest x-ray was completed showing no acute pulmonary process. Awaiting oral surgery to evaluate growth under tongue. Patient reports improvement with nausea and vomiting. Patient denies abdominal pain. Patient denies chest pain. Patient denies any urinary burning or frequency Objective - Vital Signs Vital signs: Vital Signs Temp 98.5 F 08/04/19 05:00 Pulse 68 08/04/19 05:00 Resp 18 08/04/19 05:00 BP 105/59 08/04/19 05:00 Pulse Ox 96 08/04/19 05:00 Intake & Output 08/03/19 08/04/19 08/04/19 18:59 06:59 18:59 Intake Total 880 Balance 880 Weight 100 kg 103 kg Intake: Oral 880 Other: Voiding Method Toilet Toilet Toilet # Voids 2 2 - Exam Narrative patient is alert and oriented 3 in no apparent distress HEENT head normocephalic and atraumatic. Growth noted to right underside of tongue Neck is supple no JVD no goiter no lymphadenopathy Chest exam reveals a few scattered rhonchi no crackles no wheezing Cardiac exam reveals regular heart sounds no gallops no murmurs Abdomen is soft, with mild diffuse tenderness, mild distention in the abdomen with possible ascites, no organomegaly with normal bowel sounds Extremity exam reveals no edema no cyanosis or clubbing Neurological examination reveals no gross focal deficit - Labs CBC & Chem 7: 08/04/19 08:20 08/04/19 08:20 Labs: Abnormal Lab Results - Last 24 Hours (Table) 08/03/19 08/03/19 08/03/19 Range/Units 11:49 16:49 20:06 RBC (3.80-5.40) m/uL MCV (80.0-100.0) fL MCH (25.0-35.0) pg RDW (11.5-15.5) % Plt Count (150-450) k/uL Lymphocytes # (1.0-4.8) k/uL Chloride (98-107) mmol/L Carbon Dioxide (22-30) mmol/L Glucose (74-99) mg/dL POC Glucose (mg/dL) 178 H 127 H 225 H (75-99) mg/dL Calcium (8.4-10.2) mg/dL Total Bilirubin (0.2-1.3) mg/dL AST (14-36) U/L Alkaline Phosphatase (38-126) U/L Ammonia (<30) umol/L Total Protein (6.3-8.2) g/dL Albumin (3.5-5.0) g/dL 08/04/19 08/04/19 08/04/19 Range/Units 07:08 08:20 08:20 RBC 3.26 L (3.80-5.40) m/uL MCV 106.6 H (80.0-100.0) fL MCH 35.2 H (25.0-35.0) pg RDW 16.5 H (11.5-15.5) % Plt Count 79 L (150-450) k/uL Lymphocytes # 0.9 L (1.0-4.8) k/uL Chloride 112 H (98-107) mmol/L Carbon Dioxide 18 L (22-30) mmol/L Glucose 122 H (74-99) mg/dL POC Glucose (mg/dL) 119 H (75-99) mg/dL Calcium 8.2 L (8.4-10.2) mg/dL Total Bilirubin 2.5 H (0.2-1.3) mg/dL AST 55 H (14-36) U/L Alkaline Phosphatase 258 H (38-126) U/L Ammonia (<30) umol/L Total Protein 6.0 L (6.3-8.2) g/dL Albumin 2.6 L (3.5-5.0) g/dL 08/04/19 Range/Units 08:20 RBC (3.80-5.40) m/uL MCV (80.0-100.0) fL MCH (25.0-35.0) pg RDW (11.5-15.5) % Plt Count (150-450) k/uL Lymphocytes # (1.0-4.8) k/uL Chloride (98-107) mmol/L Carbon Dioxide (22-30) mmol/L Glucose (74-99) mg/dL POC Glucose (mg/dL) (75-99) mg/dL Calcium (8.4-10.2) mg/dL Total Bilirubin (0.2-1.3) mg/dL AST (14-36) U/L Alkaline Phosphatase (38-126) U/L Ammonia 47 H (<30) umol/L Total Protein (6.3-8.2) g/dL Albumin (3.5-5.0) g/dL Assessment and Plan Assessment: #1 abdominal pain nausea and vomiting. Status post EGD showing mild antral gastritis no evidence of esophagitis or peptic ulcer disease. Advanced diet as tolerated. Per GI services continue Protonix 40 mg daily and antiemetics. #2 poor appetite due to nausea and vomiting #3 underlying history of hepatocellular carcinoma. Oncology service is following #4 underlying history of liver cirrhosis #5 underlying history of hypertension #6 underlying history of insulin-dependent diabetes mellitus #7 underlying history of depression #8 anemia of chronic disease related to known hepatocellular carcinoma. IV iron ordered per oncology services #9 pancytopenia elevated to hepatocellular carcinoma #10 acities secondary to chronic liver disease. s/p paracentesis 4.7L removed. #11. Growth noted to right side of tongue. ENT has been consulted to further evaluate. Oral surgery has been consulted #12. Increased congestion with upper respiratory symptoms. Chest x-ray completed showing no acute pulmonary process Mucinex and throat lozenges have been ordered DVT prophylaxis SCDs due to thrombocytopenia. GI prophylaxis Protonix PT OT consulted. Social consulted for possible ECF placement I performed an examination of the patient and discussed their management with the Nurse Practitioner. I have reviewed the Nurse Practitioner's notes and agree with the documented findings and plan of care
[2019-08-04 11:14] LABS: Glucose,Whole Blood 192 mg/dL (75-99)
--- NOTE | 2019-08-04 12:51 | P.PN ---
Subjective Progress Note Date: 08/04/19 Principal diagnosis: Abdominal pain Cytology negative for malignant cells. CBC stable Objective - Vital Signs Vital signs: Vital Signs Temp 98.5 F 08/04/19 05:00 Pulse 68 08/04/19 05:00 Resp 18 08/04/19 05:00 BP 105/59 08/04/19 05:00 Pulse Ox 96 08/04/19 05:00 Intake & Output 08/03/19 08/04/19 08/04/19 18:59 06:59 18:59 Intake Total 880 Balance 880 Weight 100 kg 103 kg Intake: Oral 880 Other: Voiding Method Toilet Toilet Toilet # Voids 2 2 - Exam - Constitutional General appearance: Present: cooperative, no acute distress, obese - EENT EENT Comment(s): right lateral tongue area of excoriation, scant coating of the tongue po steriorly, oropharynx is not red Eyes: Present: anicteric sclerae, EOMI, poor dentition ENT: Present: hearing grossly normal - Respiratory Respiratory: bilateral: CTA - Cardiovascular Heart sounds: normal: S1, S2 - Peripheral edema leg Peripheral Edema: bilateral: None - Gastrointestinal General gastrointestinal: Present: soft, tenderness - Neurologic Neurologic: Present: CNII-XII intact - Psychiatric Psychiatric: Present: A&O x's 3, appropriate affect, intact judgment & insight - Labs CBC & Chem 7: 08/04/19 08:20 08/04/19 08:20 Labs: Abnormal Lab Results - Last 24 Hours (Table) 08/03/19 08/03/19 08/04/19 Range/Units 16:49 20:06 07:08 RBC (3.80-5.40) m/uL MCV (80.0-100.0) fL MCH (25.0-35.0) pg RDW (11.5-15.5) % Plt Count (150-450) k/uL Lymphocytes # (1.0-4.8) k/uL Chloride (98-107) mmol/L Carbon Dioxide (22-30) mmol/L Glucose (74-99) mg/dL POC Glucose (mg/dL) 127 H 225 H 119 H (75-99) mg/dL Calcium (8.4-10.2) mg/dL Total Bilirubin (0.2-1.3) mg/dL AST (14-36) U/L Alkaline Phosphatase (38-126) U/L Ammonia (<30) umol/L Total Protein (6.3-8.2) g/dL Albumin (3.5-5.0) g/dL 08/04/19 08/04/19 08/04/19 Range/Units 08:20 08:20 08:20 RBC 3.26 L (3.80-5.40) m/uL MCV 106.6 H (80.0-100.0) fL MCH 35.2 H (25.0-35.0) pg RDW 16.5 H (11.5-15.5) % Plt Count 79 L (150-450) k/uL Lymphocytes # 0.9 L (1.0-4.8) k/uL Chloride 112 H (98-107) mmol/L Carbon Dioxide 18 L (22-30) mmol/L Glucose 122 H (74-99) mg/dL POC Glucose (mg/dL) (75-99) mg/dL Calcium 8.2 L (8.4-10.2) mg/dL Total Bilirubin 2.5 H (0.2-1.3) mg/dL AST 55 H (14-36) U/L Alkaline Phosphatase 258 H (38-126) U/L Ammonia 47 H (<30) umol/L Total Protein 6.0 L (6.3-8.2) g/dL Albumin 2.6 L (3.5-5.0) g/dL 08/04/19 Range/Units 11:13 RBC (3.80-5.40) m/uL MCV (80.0-100.0) fL MCH (25.0-35.0) pg RDW (11.5-15.5) % Plt Count (150-450) k/uL Lymphocytes # (1.0-4.8) k/uL Chloride (98-107) mmol/L Carbon Dioxide (22-30) mmol/L Glucose (74-99) mg/dL POC Glucose (mg/dL) 192 H (75-99) mg/dL Calcium (8.4-10.2) mg/dL Total Bilirubin (0.2-1.3) mg/dL AST (14-36) U/L Alkaline Phosphatase (38-126) U/L Ammonia (<30) umol/L Total Protein (6.3-8.2) g/dL Albumin (3.5-5.0) g/dL Assessment and Plan Plan: Assessment and Recommendations: History of liver cancer - AFP 2.9, stable - No images are acutely necessary in regards to HCC, Oct would be 3 months. - Encouraged pt to establish care with ONE doctor and try to keep appts and im aging at one institution for continuity of care. 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 No acute intervention Macrocytic anemia Iron deficiency. EGD unremarkable, stomach biopsy negative for malignancy, gastritis diagnosed. Parenteral iron ordered. Chronic abdominal pain Patient is status post 4.3 L paracentesis. Continue current analgesics. Cytology is pending on acitic fluid. Leukopenia Low white blood cell count is noted intermittently throughout multiple hospitalizations. ANC is adequate. Most of the time her absolute lymphocyte count dropped slightly. No acute intervention. Mucositis Mild, cools solution ordered DISPO Plan: Per Primary. Pt going to rehab
[2019-08-04 16:31] LABS: Glucose,Whole Blood 124 mg/dL (75-99)
--- NOTE | 2019-08-04 19:44 | P.PN ---
Subjective Progress Note Date: 08/04/19 Principal diagnosis: Cryptogenic cirrhosis, ascites, hepatic encephalopathy, nausea and vomiting Patient is seen lying in bed reporting she is tolerating her diet. Is complaining of a sore throat. Objective - Vital Signs Vital signs: Vital Signs Temp 98.5 F 08/04/19 05:00 Pulse 68 08/04/19 05:00 Resp 18 08/04/19 05:00 BP 105/59 08/04/19 05:00 Pulse Ox 96 08/04/19 05:00 Intake & Output 08/04/19 08/04/19 08/05/19 06:59 18:59 06:59 Weight 103 kg Other: Voiding Method Toilet Toilet # Voids 2 4 - Exam On physical examination, patient appears comfortable in no apparent distress. HEAD: Normocephalic, atraumatic. EYES: No scleral icterus. No conjunctival injection. MOUTH: No lesions, tongue midline. NECK: Trachea midline, no gross abnormalities. CHEST: Clear to auscultation with no wheezing or rhonchi appreciated. HEART: S1-S2 appreciated. ABDOMEN: Soft, obese, ostomy on the right side of her abdomen appears healthy. Bowel sounds are positive. No organomegaly. No guarding or rigidity. EXTREMITIES: No pedal edema. SKIN: No rashes, no jaundice. NEUROLOGIC: Alert and oriented x3. No focal deficits. - Labs CBC & Chem 7: 08/04/19 08:20 08/04/19 08:20 Labs: Abnormal Lab Results - Last 24 Hours (Table) 08/03/19 08/04/19 08/04/19 Range/Units 20:06 07:08 08:20 RBC 3.26 L (3.80-5.40) m/uL MCV 106.6 H (80.0-100.0) fL MCH 35.2 H (25.0-35.0) pg RDW 16.5 H (11.5-15.5) % Plt Count 79 L (150-450) k/uL Lymphocytes # 0.9 L (1.0-4.8) k/uL Chloride (98-107) mmol/L Carbon Dioxide (22-30) mmol/L Glucose (74-99) mg/dL POC Glucose (mg/dL) 225 H 119 H (75-99) mg/dL Calcium (8.4-10.2) mg/dL Total Bilirubin (0.2-1.3) mg/dL AST (14-36) U/L Alkaline Phosphatase (38-126) U/L Ammonia (<30) umol/L Total Protein (6.3-8.2) g/dL Albumin (3.5-5.0) g/dL 08/04/19 08/04/19 08/04/19 Range/Units 08:20 08:20 11:13 RBC (3.80-5.40) m/uL MCV (80.0-100.0) fL MCH (25.0-35.0) pg RDW (11.5-15.5) % Plt Count (150-450) k/uL Lymphocytes # (1.0-4.8) k/uL Chloride 112 H (98-107) mmol/L Carbon Dioxide 18 L (22-30) mmol/L Glucose 122 H (74-99) mg/dL POC Glucose (mg/dL) 192 H (75-99) mg/dL Calcium 8.2 L (8.4-10.2) mg/dL Total Bilirubin 2.5 H (0.2-1.3) mg/dL AST 55 H (14-36) U/L Alkaline Phosphatase 258 H (38-126) U/L Ammonia 47 H (<30) umol/L Total Protein 6.0 L (6.3-8.2) g/dL Albumin 2.6 L (3.5-5.0) g/dL 08/04/19 Range/Units 16:29 RBC (3.80-5.40) m/uL MCV (80.0-100.0) fL MCH (25.0-35.0) pg RDW (11.5-15.5) % Plt Count (150-450) k/uL Lymphocytes # (1.0-4.8) k/uL Chloride (98-107) mmol/L Carbon Dioxide (22-30) mmol/L Glucose (74-99) mg/dL POC Glucose (mg/dL) 124 H (75-99) mg/dL Calcium (8.4-10.2) mg/dL Total Bilirubin (0.2-1.3) mg/dL AST (14-36) U/L Alkaline Phosphatase (38-126) U/L Ammonia (<30) umol/L Total Protein (6.3-8.2) g/dL Albumin (3.5-5.0) g/dL Assessment and Plan (1) Intractable nausea and vomiting Current Visit: Yes Status: Resolved Priority: High Code(s): R11.2 - NAUSEA WITH VOMITING, UNSPECIFIED SNOMED Code(s): 622798559 (2) Cirrhosis of liver with ascites Current Visit: No Status: Acute Code(s): K74.60 - UNSPECIFIED CIRRHOSIS OF LIVER; R18.8 - OTHER ASCITES SNOMED Code(s): 30643753 (3) Hepatic encephalopathy Current Visit: No Status: Acute Code(s): K72.90 - HEPATIC FAILURE, UNSPECIFIED WITHOUT COMA SNOMED Code(s): 01906575 Plan: Supportive care Okay for sodium restricted diet Continue Xifaxan and lactulose Continue dicyclomine Continue antiemetics as needed Continue diuresis with Lasix and Aldactone Thank you for allowing us to participate in the care of this patient we will follow
[2019-08-04 19:52] LABS: Glucose,Whole Blood 228 mg/dL (75-99)
[2019-08-05] MEDS: MORPHINE SULFATE 4 MG/ML SYRINGE IV PRN (01:05)
[2019-08-05 07:16] LABS: Glucose,Whole Blood 138 mg/dL (75-99)
[2019-08-05 07:17] LABS: Basophils % (A) 1 %; Eosinophils # (A) 0.2 k/uL (0-0.7); Eosinophils % (A) 5 %; HGB 10.3 gm/dL (11.4-16.0); Lymphocytes # (A) 0.9 k/uL (1.0-4.8); Lymphocytes % (A) 24 %; MCH 36.5 pg (25.0-35.0); MCHC 34.3 g/dL (31.0-37.0); MCV 106.2 fL (80.0-100.0); Macrocytosis Moderate; Mean Platelet Volume 8.5; Monocytes # (A) 0.3 k/uL (0-1.0); Monocytes % (A) 8 %; Neutrophils # (A) 2.3 k/uL (1.3-7.7); Neutrophils % (A) 58 %; RBC 2.82 m/uL (3.80-5.40); RDW 15.6 % (11.5-15.5)
[2019-08-05 07:21] LABS: Platelet Count 68 k/uL (150-450)
[2019-08-05 08:03] LABS: Albumin 2.1 g/dL (3.5-5.0); Calcium 7.9 mg/dL (8.4-10.2); Potassium 3.6 mmol/L (3.5-5.1); Total Bilirubin 1.6 mg/dL (0.2-1.3); Total Protein 4.9 g/dL (6.3-8.2)
[2019-08-05] MEDS: LACTULOSE 20 GM/30 ML CUP PO SCH ×3 (08:25→17:51)
[2019-08-05] MEDS: MAG HYDROX/AL HYDROX/SIMETH 30 ML, LIDOCAINE VISCOUS 30 ML, diphenhydrAMINE ELIXIR 75 M... PO SCH ×12 (08:27→21:23)
[2019-08-05] MEDS: INSULIN ASPART (NovoLOG) 100 UNIT/ML VIAL SQ SCH ×4 (08:28→21:21)
[2019-08-05] MEDS: CHOLECALCIFEROL 1,000 UNIT TAB PO SCH (08:29)
[2019-08-05] MEDS: FERROUS SULFATE 325 MG TAB PO SCH ×2 (08:30→21:21)
[2019-08-05] MEDS: METOPROLOL TARTRATE 25 MG TAB PO SCH (08:30)
[2019-08-05] MEDS: SUCRALFATE 1 GM TAB PO SCH ×4 (08:30→21:23)
[2019-08-05] MEDS: PANTOPRAZOLE 40 MG TABLET PO SCH (08:30)
[2019-08-05] MEDS: ISOSORBIDE MONONITRATE ER 30 MG TAB.ER.24H PO SCH (08:30)
[2019-08-05] MEDS: DICYCLOMINE 20 MG TAB PO SCH ×4 (08:32→21:23)
[2019-08-05] MEDS: FUROSEMIDE 40 MG TAB PO SCH (08:32)
[2019-08-05] MEDS: SPIRONOLACTONE 25 MG TAB PO SCH (08:32)
[2019-08-05] MEDS: buPROPion SR 150 MG TABLET.ER PO SCH ×2 (08:32→21:21)
[2019-08-05] MEDS: RIFAXIMIN 550 MG TABLET PO SCH ×2 (08:33→21:22)
[2019-08-05] MEDS: MORPHINE SULFATE ER 15 MG TABLET PO SCH ×2 (08:33→21:22)
[2019-08-05] MEDS ORDERED: AZITHROMYCIN 500 MG in SODIUM CHLORIDE 0.9% 250 ML IVPB SCH (09:00)
[2019-08-05 12:06] LABS: Glucose,Whole Blood 262 mg/dL (75-99)
--- NOTE | 2019-08-05 16:27 | P.PN ---
Subjective Progress Note Date: 08/05/19 Charlene Keenan is a 73-year-old female well known to my practice who presented to [facility] emergency room with a chief complaint of abdominal pain nausea and vomiting, patient has a known history of liver cancer, she was recently admitted to [facility] with similar symptoms she was seen by gastroenterology and was treated symptomatically and was discharged home, however her symptoms worsened and she decided to come back to emergency room. Patient is complaining of feeling weak and complaining of nausea and vomiting and poor appetite there is no fever or chills no headache or dizziness no chest pain no shortness of breath no cough no diarrhea no burning with urination no frequency or urgency no hematuria weakness or numbness in any of her extremities no change in her vision speech or gait. On 07/31/2019 patient is alert and oriented 3. Patient is feeling improved today. Planning EGD per GI services. At this time patient denies chest pain or shortness of breath. Patient denies nausea vomiting or diarrhea. Patient denies any urinary burning frequency On 08/01/2019 patient's alert and oriented 3. Patient underwent EGD yesterday with Dr. Figueroa showing mild antral gastritis and no evidence of esophagitis or peptic ulcer disease. Patient is still having some abdominal discomfort with nausea. Per GI services advance diet as tolerated PT and OT will be consulted for possible ECF placement. At this time patient denies chest pain or shortness any urinary burning or frequency. Patient does report some nausea. On 08/02/2019 patient's alert and oriented 3. Patient is status post paracentesis with 4.7L removed. Patient's symptoms have improved. Patient denies chest pain or shortness of breath. Patient denies nausea vomiting or diarrhea. Patient denies any urinary burning or frequency. Patient has been tolerating diet. Social consult for discharge planning possible ECF the patient qualifies 08/03/2019 patient's alert and oriented 3. Patient claims increased cough and upper respirations symptoms. At this time will order chest x-ray. Patient also complaining about soreness to tongue upon examination patient noticed to have growth to right underside of tongue. Will consult ENT to further evaluate. Patient reports some improvement with abdominal pain. Patient denies chest pain. Patient still having occasional nausea. Patient denies any urinary burning or frequency On 08/04/2019 patient's alert and oriented 3. Patient complaint of upper respiratory symptoms. Chest x-ray was completed showing no acute pulmonary process. Awaiting oral surgery to evaluate growth under tongue. Patient reports improvement with nausea and vomiting. Patient denies abdominal pain. Patient denies chest pain. Patient denies any urinary burning or frequency On 08/05/2019 patient was seen and examined on the medical floor, she is alert and oriented 3 in no apparent distress, she is complaining of sore throat, she is complaining of abdominal pain, otherwise she denies any complaints at this time there is no fever or chills no headache or dizziness no chest pain no shortness of breath no cough no nausea or vomiting no diarrhea no burning with urination no frequency or urgency and no hematuria Objective - Vital Signs Vital signs: Vital Signs Temp 98.1 F 08/05/19 12:53 Pulse 67 08/05/19 12:53 Resp 16 08/05/19 12:53 BP 114/55 08/05/19 12:53 Pulse Ox 99 08/05/19 12:53 Intake & Output 08/04/19 08/05/19 08/05/19 18:59 06:59 18:59 Weight 102 kg Other: Voiding Method Toilet Toilet Toilet # Voids 4 3 4 # Bowel Movements 3 - Exam In general patient is alert and oriented 3 in no apparent distress HEENT head normocephalic and atraumatic. Growth noted to right underside of tongue Neck is supple no JVD no goiter no lymphadenopathy Chest exam reveals a few scattered rhonchi no crackles no wheezing Cardiac exam reveals regular heart sounds no gallops no murmurs Abdomen is soft, with mild diffuse tenderness, mild distention in the abdomen with possible ascites, no organomegaly with normal bowel sounds Extremity exam reveals no edema no cyanosis or clubbing Neurological examination reveals no gross focal deficit - Labs CBC & Chem 7: 08/05/19 06:53 08/05/19 06:53 Labs: Abnormal Lab Results - Last 24 Hours (Table) 08/04/19 08/04/19 08/05/19 Range/Units 16:29 19:50 06:53 RBC 2.82 L (3.80-5.40) m/uL Hgb 10.3 L (11.4-16.0) gm/dL Hct 30.0 L (34.0-46.0) % MCV 106.2 H (80.0-100.0) fL MCH 36.5 H (25.0-35.0) pg RDW 15.6 H (11.5-15.5) % Plt Count 68 L (150-450) k/uL Lymphocytes # 0.9 L (1.0-4.8) k/uL Sodium (137-145) mmol/L Chloride (98-107) mmol/L Carbon Dioxide (22-30) mmol/L Glucose (74-99) mg/dL POC Glucose (mg/dL) 124 H 228 H (75-99) mg/dL Calcium (8.4-10.2) mg/dL Total Bilirubin (0.2-1.3) mg/dL AST (14-36) U/L Alkaline Phosphatase (38-126) U/L Ammonia (<30) umol/L Total Protein (6.3-8.2) g/dL Albumin (3.5-5.0) g/dL 08/05/19 08/05/19 08/05/19 Range/Units 06:53 06:53 07:14 RBC (3.80-5.40) m/uL Hgb (11.4-16.0) gm/dL Hct (34.0-46.0) % MCV (80.0-100.0) fL MCH (25.0-35.0) pg RDW (11.5-15.5) % Plt Count (150-450) k/uL Lymphocytes # (1.0-4.8) k/uL Sodium 136 L (137-145) mmol/L Chloride 113 H (98-107) mmol/L Carbon Dioxide 19 L (22-30) mmol/L Glucose 141 H (74-99) mg/dL POC Glucose (mg/dL) 138 H (75-99) mg/dL Calcium 7.9 L (8.4-10.2) mg/dL Total Bilirubin 1.6 H (0.2-1.3) mg/dL AST 41 H (14-36) U/L Alkaline Phosphatase 216 H (38-126) U/L Ammonia 52 H (<30) umol/L Total Protein 4.9 L (6.3-8.2) g/dL Albumin 2.1 L (3.5-5.0) g/dL 08/05/19 Range/Units 12:05 RBC (3.80-5.40) m/uL Hgb (11.4-16.0) gm/dL Hct (34.0-46.0) % MCV (80.0-100.0) fL MCH (25.0-35.0) pg RDW (11.5-15.5) % Plt Count (150-450) k/uL Lymphocytes # (1.0-4.8) k/uL Sodium (137-145) mmol/L Chloride (98-107) mmol/L Carbon Dioxide (22-30) mmol/L Glucose (74-99) mg/dL POC Glucose (mg/dL) 262 H (75-99) mg/dL Calcium (8.4-10.2) mg/dL Total Bilirubin (0.2-1.3) mg/dL AST (14-36) U/L Alkaline Phosphatase (38-126) U/L Ammonia (<30) umol/L Total Protein (6.3-8.2) g/dL Albumin (3.5-5.0) g/dL Assessment and Plan Plan: #1 abdominal pain nausea and vomiting. Status post EGD showing mild antral gastritis no evidence of esophagitis or peptic ulcer disease. Advanced diet as tolerated. Per GI services continue Protonix 40 mg daily and antiemetics. #2 poor appetite due to nausea and vomiting #3 underlying history of hepatocellular carcinoma. Oncology service is following #4 underlying history of liver cirrhosis #5 underlying history of hypertension #6 underlying history of insulin-dependent diabetes mellitus #7 underlying history of depression #8 anemia of chronic disease related to known hepatocellular carcinoma. IV iron ordered per oncology services #9 pancytopenia elevated to hepatocellular carcinoma #10 acities secondary to chronic liver disease. s/p paracentesis 4.7L removed. #11. Growth noted to right side of tongue. ENT has been consulted to further evaluate. Oral surgery has been consulted #12. Increased congestion with upper respiratory symptoms. Chest x-ray completed showing no acute pulmonary process Mucinex and throat lozenges have been ordered DVT prophylaxis SCDs due to thrombocytopenia. GI prophylaxis Protonix PT OT consulted. Social consulted for possible ECF placement
[2019-08-05 17:17] LABS: Glucose,Whole Blood 162 mg/dL (75-99)
--- NOTE | 2019-08-05 17:27 | P.PN ---
Subjective Progress Note Date: 08/05/19 Principal diagnosis: Cryptogenic cirrhosis, ascites, hepatic encephalopathy, nausea and vomiting Patient is seen lying in bed reporting she is tolerating her diet, reporting that she ate [place] fried [place] today. No nausea or vomiting. Still some abdominal soreness reported. Objective - Vital Signs Vital signs: Vital Signs Temp 98.1 F 08/05/19 12:53 Pulse 67 08/05/19 12:53 Resp 16 08/05/19 12:53 BP 114/55 08/05/19 12:53 Pulse Ox 99 08/05/19 12:53 Intake & Output 08/04/19 08/05/19 08/05/19 18:59 06:59 18:59 Weight 102 kg Other: Voiding Method Toilet Toilet Toilet # Voids 4 3 4 # Bowel Movements 3 - Exam On physical examination, patient appears comfortable in no apparent distress. HEAD: Normocephalic, atraumatic. EYES: No scleral icterus. No conjunctival injection. MOUTH: No lesions, tongue midline. NECK: Trachea midline, no gross abnormalities. CHEST: Clear to auscultation with no wheezing or rhonchi appreciated. HEART: S1-S2 appreciated. ABDOMEN: Soft, obese, ostomy on the right side of her abdomen appears healthy. Bowel sounds are positive. No organomegaly. No guarding or rigidity. EXTREMITIES: No pedal edema. SKIN: No rashes, no jaundice. NEUROLOGIC: Alert and oriented x3. No focal deficits. - Labs CBC & Chem 7: 08/05/19 06:53 08/05/19 06:53 Labs: Abnormal Lab Results - Last 24 Hours (Table) 08/04/19 08/05/19 08/05/19 Range/Units 19:50 06:53 06:53 RBC 2.82 L (3.80-5.40) m/uL Hgb 10.3 L (11.4-16.0) gm/dL Hct 30.0 L (34.0-46.0) % MCV 106.2 H (80.0-100.0) fL MCH 36.5 H (25.0-35.0) pg RDW 15.6 H (11.5-15.5) % Plt Count 68 L (150-450) k/uL Lymphocytes # 0.9 L (1.0-4.8) k/uL Sodium 136 L (137-145) mmol/L Chloride 113 H (98-107) mmol/L Carbon Dioxide 19 L (22-30) mmol/L Glucose 141 H (74-99) mg/dL POC Glucose (mg/dL) 228 H (75-99) mg/dL Calcium 7.9 L (8.4-10.2) mg/dL Total Bilirubin 1.6 H (0.2-1.3) mg/dL AST 41 H (14-36) U/L Alkaline Phosphatase 216 H (38-126) U/L Ammonia (<30) umol/L Total Protein 4.9 L (6.3-8.2) g/dL Albumin 2.1 L (3.5-5.0) g/dL 08/05/19 08/05/19 08/05/19 Range/Units 06:53 07:14 12:05 RBC (3.80-5.40) m/uL Hgb (11.4-16.0) gm/dL Hct (34.0-46.0) % MCV (80.0-100.0) fL MCH (25.0-35.0) pg RDW (11.5-15.5) % Plt Count (150-450) k/uL Lymphocytes # (1.0-4.8) k/uL Sodium (137-145) mmol/L Chloride (98-107) mmol/L Carbon Dioxide (22-30) mmol/L Glucose (74-99) mg/dL POC Glucose (mg/dL) 138 H 262 H (75-99) mg/dL Calcium (8.4-10.2) mg/dL Total Bilirubin (0.2-1.3) mg/dL AST (14-36) U/L Alkaline Phosphatase (38-126) U/L Ammonia 52 H (<30) umol/L Total Protein (6.3-8.2) g/dL Albumin (3.5-5.0) g/dL 08/05/19 Range/Units 17:16 RBC (3.80-5.40) m/uL Hgb (11.4-16.0) gm/dL Hct (34.0-46.0) % MCV (80.0-100.0) fL MCH (25.0-35.0) pg RDW (11.5-15.5) % Plt Count (150-450) k/uL Lymphocytes # (1.0-4.8) k/uL Sodium (137-145) mmol/L Chloride (98-107) mmol/L Carbon Dioxide (22-30) mmol/L Glucose (74-99) mg/dL POC Glucose (mg/dL) 162 H (75-99) mg/dL Calcium (8.4-10.2) mg/dL Total Bilirubin (0.2-1.3) mg/dL AST (14-36) U/L Alkaline Phosphatase (38-126) U/L Ammonia (<30) umol/L Total Protein (6.3-8.2) g/dL Albumin (3.5-5.0) g/dL Assessment and Plan (1) Intractable nausea and vomiting Current Visit: Yes Status: Resolved Priority: High Code(s): R11.2 - NAUSEA WITH VOMITING, UNSPECIFIED SNOMED Code(s): 497854661 (2) Cirrhosis of liver with ascites Current Visit: No Status: Acute Code(s): K74.60 - UNSPECIFIED CIRRHOSIS OF LIVER; R18.8 - OTHER ASCITES SNOMED Code(s): 50802002 (3) Hepatic encephalopathy Current Visit: No Status: Acute Code(s): K72.90 - HEPATIC FAILURE, UNSPECIFIED WITHOUT COMA SNOMED Code(s): 81267354 Plan: Supportive care Okay for sodium restricted diet Continue Xifaxan and lactulose Continue dicyclomine Continue antiemetics as needed Continue diuresis with Lasix and Aldactone Thank you for allowing us to participate in the care of this patient we will follow
[2019-08-05] MEDS: AZITHROMYCIN 250 MG TAB PO SCH (17:52)
[2019-08-05 20:10] LABS: Glucose,Whole Blood 135 mg/dL (75-99)
[2019-08-06 07:11] LABS: Glucose,Whole Blood 146 mg/dL (75-99)
[2019-08-06 07:29] LABS: Basophils % (A) 0 %; Eosinophils # (A) 0.2 k/uL (0-0.7); Eosinophils % (A) 5 %; HCT 29.8 % (34.0-46.0); HGB 9.8 gm/dL (11.4-16.0); Lymphocytes # (A) 0.9 k/uL (1.0-4.8); Lymphocytes % (A) 22 %; MCH 35.2 pg (25.0-35.0); MCV 106.7 fL (80.0-100.0); Macrocytosis Marked; Mean Platelet Volume 8.8; Monocytes # (A) 0.3 k/uL (0-1.0); Monocytes % (A) 8 %; Neutrophils # (A) 2.5 k/uL (1.3-7.7); Neutrophils % (A) 62 %; RBC 2.79 m/uL (3.80-5.40); RDW 15.9 % (11.5-15.5)
[2019-08-06 07:34] LABS: Platelet Count 67 k/uL (150-450)
[2019-08-06 07:39] LABS: Albumin 2.1 g/dL (3.5-5.0); Potassium 3.7 mmol/L (3.5-5.1); Total Bilirubin 1.5 mg/dL (0.2-1.3); Total Protein 4.9 g/dL (6.3-8.2)
[2019-08-06] MEDS: INSULIN ASPART (NovoLOG) 100 UNIT/ML VIAL SQ SCH ×4 (07:42→21:01)
[2019-08-06] MEDS: LACTULOSE 20 GM/30 ML CUP PO SCH ×4 (07:43→16:56)
[2019-08-06] MEDS: DICYCLOMINE 20 MG TAB PO SCH ×4 (07:43→21:01)
[2019-08-06] MEDS: CHOLECALCIFEROL 1,000 UNIT TAB PO SCH (07:44)
[2019-08-06] MEDS: AZITHROMYCIN 250 MG TAB PO SCH (07:44)
[2019-08-06] MEDS: SPIRONOLACTONE 25 MG TAB PO SCH (07:44)
[2019-08-06] MEDS: METOPROLOL TARTRATE 25 MG TAB PO SCH (07:45)
[2019-08-06] MEDS: ISOSORBIDE MONONITRATE ER 30 MG TAB.ER.24H PO SCH (07:46)
[2019-08-06] MEDS: FERROUS SULFATE 325 MG TAB PO SCH ×2 (07:46→21:01)
[2019-08-06] MEDS: MORPHINE SULFATE ER 15 MG TABLET PO SCH ×2 (07:46→21:02)
[2019-08-06] MEDS: PANTOPRAZOLE 40 MG TABLET PO SCH (07:46)
[2019-08-06] MEDS: SUCRALFATE 1 GM TAB PO SCH ×4 (07:46→21:01)
[2019-08-06] MEDS: FUROSEMIDE 40 MG TAB PO SCH (07:46)
[2019-08-06] MEDS: RIFAXIMIN 550 MG TABLET PO SCH ×2 (07:49→21:02)
[2019-08-06] MEDS: buPROPion SR 150 MG TABLET.ER PO SCH ×2 (07:50→21:02)
[2019-08-06] MEDS: MAG HYDROX/AL HYDROX/SIMETH 30 ML, LIDOCAINE VISCOUS 30 ML, diphenhydrAMINE ELIXIR 75 M... PO SCH ×12 (07:50→21:02)
--- NOTE | 2019-08-06 11:10 | P.PN ---
Subjective Progress Note Date: 08/06/19 Charlene Keenan is a 73-year-old female well known to my practice who presented to [facility] emergency room with a chief complaint of abdominal pain nausea and vomiting, patient has a known history of liver cancer, she was recently admitted to [facility] with similar symptoms she was seen by gastroenterology and was treated symptomatically and was discharged home, however her symptoms worsened and she decided to come back to emergency room. Patient is complaining of feeling weak and complaining of nausea and vomiting and poor appetite there is no fever or chills no headache or dizziness no chest pain no shortness of breath no cough no diarrhea no burning with urination no frequency or urgency no hematuria weakness or numbness in any of her extremities no change in her vision speech or gait. On 07/31/2019 patient is alert and oriented 3. Patient is feeling improved today. Planning EGD per GI services. At this time patient denies chest pain or shortness of breath. Patient denies nausea vomiting or diarrhea. Patient denies any urinary burning frequency On 08/01/2019 patient's alert and oriented 3. Patient underwent EGD yesterday with Dr. Figueroa showing mild antral gastritis and no evidence of esophagitis or peptic ulcer disease. Patient is still having some abdominal discomfort with nausea. Per GI services advance diet as tolerated PT and OT will be consulted for possible ECF placement. At this time patient denies chest pain or shortness any urinary burning or frequency. Patient does report some nausea. On 08/02/2019 patient's alert and oriented 3. Patient is status post paracentesis with 4.7L removed. Patient's symptoms have improved. Patient denies chest pain or shortness of breath. Patient denies nausea vomiting or diarrhea. Patient denies any urinary burning or frequency. Patient has been tolerating diet. Social consult for discharge planning possible ECF the patient qualifies 08/03/2019 patient's alert and oriented 3. Patient claims increased cough and upper respirations symptoms. At this time will order chest x-ray. Patient also complaining about soreness to tongue upon examination patient noticed to have growth to right underside of tongue. Will consult ENT to further evaluate. Patient reports some improvement with abdominal pain. Patient denies chest pain. Patient still having occasional nausea. Patient denies any urinary burning or frequency On 08/04/2019 patient's alert and oriented 3. Patient complaint of upper respiratory symptoms. Chest x-ray was completed showing no acute pulmonary process. Awaiting oral surgery to evaluate growth under tongue. Patient reports improvement with nausea and vomiting. Patient denies abdominal pain. Patient denies chest pain. Patient denies any urinary burning or frequency On 08/05/2019 patient was seen and examined on the medical floor, she is alert and oriented 3 in no apparent distress, she is complaining of sore throat, she is complaining of abdominal pain, otherwise she denies any complaints at this time there is no fever or chills no headache or dizziness no chest pain no shortness of breath no cough no nausea or vomiting no diarrhea no burning with urination no frequency or urgency and no hematuria On 08/06/2019 patient was seen and examined on the medical floor she is still complaining of sore throat and complaining of nausea otherwise she denies any complaints there is no fever or chills no headache or dizziness no chest pain no shortness of breath no cough no abdominal pain no diarrhea and no urinary symptoms Objective - Vital Signs Vital signs: Vital Signs Temp 98.6 F 08/06/19 04:48 Pulse 78 08/06/19 04:48 Resp 18 08/06/19 04:48 BP 134/66 08/06/19 04:48 Pulse Ox 97 08/06/19 04:48 Intake & Output 08/05/19 08/06/19 08/06/19 18:59 06:59 18:59 Weight 101.5 kg Other: Voiding Method Toilet Toilet # Voids 4 2 # Bowel Movements 3 - Exam In general patient is alert and oriented 3 in no apparent distress HEENT head normocephalic and atraumatic. Growth noted to right underside of tongue Neck is supple no JVD no goiter no lymphadenopathy Chest exam reveals a few scattered rhonchi no crackles no wheezing Cardiac exam reveals regular heart sounds no gallops no murmurs Abdomen is soft, with mild diffuse tenderness, mild distention in the abdomen with possible ascites, no organomegaly with normal bowel sounds Extremity exam reveals no edema no cyanosis or clubbing Neurological examination reveals no gross focal deficit - Labs CBC & Chem 7: 08/06/19 06:59 08/06/19 06:59 Labs: Abnormal Lab Results - Last 24 Hours (Table) 08/05/19 08/05/19 08/05/19 Range/Units 12:05 17:16 20:08 RBC (3.80-5.40) m/uL Hgb (11.4-16.0) gm/dL Hct (34.0-46.0) % MCV (80.0-100.0) fL MCH (25.0-35.0) pg RDW (11.5-15.5) % Plt Count (150-450) k/uL Lymphocytes # (1.0-4.8) k/uL Macrocytosis Chloride (98-107) mmol/L Carbon Dioxide (22-30) mmol/L Glucose (74-99) mg/dL POC Glucose (mg/dL) 262 H 162 H 135 H (75-99) mg/dL Calcium (8.4-10.2) mg/dL Total Bilirubin (0.2-1.3) mg/dL AST (14-36) U/L Alkaline Phosphatase (38-126) U/L Ammonia (<30) umol/L Total Protein (6.3-8.2) g/dL Albumin (3.5-5.0) g/dL 08/06/19 08/06/19 08/06/19 Range/Units 06:59 06:59 06:59 RBC 2.79 L (3.80-5.40) m/uL Hgb 9.8 L (11.4-16.0) gm/dL Hct 29.8 L (34.0-46.0) % MCV 106.7 H (80.0-100.0) fL MCH 35.2 H (25.0-35.0) pg RDW 15.9 H (11.5-15.5) % Plt Count 67 L (150-450) k/uL Lymphocytes # 0.9 L (1.0-4.8) k/uL Macrocytosis Marked A Chloride 114 H (98-107) mmol/L Carbon Dioxide 19 L (22-30) mmol/L Glucose 144 H (74-99) mg/dL POC Glucose (mg/dL) (75-99) mg/dL Calcium 8.0 L (8.4-10.2) mg/dL Total Bilirubin 1.5 H (0.2-1.3) mg/dL AST 39 H (14-36) U/L Alkaline Phosphatase 216 H (38-126) U/L Ammonia 55 H (<30) umol/L Total Protein 4.9 L (6.3-8.2) g/dL Albumin 2.1 L (3.5-5.0) g/dL 08/06/19 Range/Units 07:08 RBC (3.80-5.40) m/uL Hgb (11.4-16.0) gm/dL Hct (34.0-46.0) % MCV (80.0-100.0) fL MCH (25.0-35.0) pg RDW (11.5-15.5) % Plt Count (150-450) k/uL Lymphocytes # (1.0-4.8) k/uL Macrocytosis Chloride (98-107) mmol/L Carbon Dioxide (22-30) mmol/L Glucose (74-99) mg/dL POC Glucose (mg/dL) 146 H (75-99) mg/dL Calcium (8.4-10.2) mg/dL Total Bilirubin (0.2-1.3) mg/dL AST (14-36) U/L Alkaline Phosphatase (38-126) U/L Ammonia (<30) umol/L Total Protein (6.3-8.2) g/dL Albumin (3.5-5.0) g/dL Assessment and Plan Plan: #1 abdominal pain nausea and vomiting. Status post EGD showing mild antral gastritis no evidence of esophagitis or peptic ulcer disease. Advanced diet as tolerated. Per GI services continue Protonix 40 mg daily and antiemetics. #2 poor appetite due to nausea and vomiting #3 underlying history of hepatocellular carcinoma. Oncology service is following #4 underlying history of liver cirrhosis #5 underlying history of hypertension #6 underlying history of insulin-dependent diabetes mellitus #7 underlying history of depression #8 anemia of chronic disease related to known hepatocellular carcinoma. IV iron ordered per oncology services #9 pancytopenia elevated to hepatocellular carcinoma #10 acities secondary to chronic liver disease. s/p paracentesis 4.7L removed. #11. Growth noted to right side of tongue. ENT has been consulted to further evaluate. Oral surgery has been consulted #12. Increased congestion with upper respiratory symptoms. Chest x-ray completed showing no acute pulmonary process Mucinex and throat lozenges have be en ordered DVT prophylaxis SCDs due to thrombocytopenia. GI prophylaxis Protonix PT OT consulted. Social consulted for possible ECF placement
[2019-08-06 11:40] LABS: Glucose,Whole Blood 207 mg/dL (75-99)
--- NOTE | 2019-08-06 15:39 | P.PN ---
Subjective Progress Note Date: 08/06/19 Principal diagnosis: Cryptogenic cirrhosis, ascites, hepatic encephalopathy, nausea and vomiting Patient is seen standing bedside with no acute complaints. No new events overnight. Asking about discharge planning. No nausea or vomiting reported. Tolerating her diet. Objective - Vital Signs Vital signs: Vital Signs Temp 98.7 F 08/06/19 12:45 Pulse 66 08/06/19 12:45 Resp 17 08/06/19 12:45 BP 95/53 08/06/19 12:45 Pulse Ox 97 08/06/19 12:45 Intake & Output 08/05/19 08/06/19 08/06/19 18:59 06:59 18:59 Weight 101.5 kg Other: Voiding Method Toilet Toilet Toilet # Voids 4 2 4 # Bowel Movements 3 3 - Exam On physical examination, patient appears comfortable in no apparent distress. HEAD: Normocephalic, atraumatic. EYES: No scleral icterus. No conjunctival injection. MOUTH: No lesions, tongue midline. NECK: Trachea midline, no gross abnormalities. CHEST: Clear to auscultation with no wheezing or rhonchi appreciated. HEART: S1-S2 appreciated. ABDOMEN: Soft, obese, ostomy on the right side of her abdomen appears healthy. Bowel sounds are positive. No organomegaly. No guarding or rigidity. EXTREMITIES: No pedal edema. SKIN: No rashes, no jaundice. NEUROLOGIC: Alert and oriented x3. No focal deficits. - Labs CBC & Chem 7: 08/06/19 06:59 08/06/19 06:59 Labs: Abnormal Lab Results - Last 24 Hours (Table) 08/05/19 08/05/19 08/06/19 Range/Units 17:16 20:08 06:59 RBC 2.79 L (3.80-5.40) m/uL Hgb 9.8 L (11.4-16.0) gm/dL Hct 29.8 L (34.0-46.0) % MCV 106.7 H (80.0-100.0) fL MCH 35.2 H (25.0-35.0) pg RDW 15.9 H (11.5-15.5) % Plt Count 67 L (150-450) k/uL Lymphocytes # 0.9 L (1.0-4.8) k/uL Macrocytosis Marked A Chloride (98-107) mmol/L Carbon Dioxide (22-30) mmol/L Glucose (74-99) mg/dL POC Glucose (mg/dL) 162 H 135 H (75-99) mg/dL Calcium (8.4-10.2) mg/dL Total Bilirubin (0.2-1.3) mg/dL AST (14-36) U/L Alkaline Phosphatase (38-126) U/L Ammonia (<30) umol/L Total Protein (6.3-8.2) g/dL Albumin (3.5-5.0) g/dL 08/06/19 08/06/19 08/06/19 Range/Units 06:59 06:59 07:08 RBC (3.80-5.40) m/uL Hgb (11.4-16.0) gm/dL Hct (34.0-46.0) % MCV (80.0-100.0) fL MCH (25.0-35.0) pg RDW (11.5-15.5) % Plt Count (150-450) k/uL Lymphocytes # (1.0-4.8) k/uL Macrocytosis Chloride 114 H (98-107) mmol/L Carbon Dioxide 19 L (22-30) mmol/L Glucose 144 H (74-99) mg/dL POC Glucose (mg/dL) 146 H (75-99) mg/dL Calcium 8.0 L (8.4-10.2) mg/dL Total Bilirubin 1.5 H (0.2-1.3) mg/dL AST 39 H (14-36) U/L Alkaline Phosphatase 216 H (38-126) U/L Ammonia 55 H (<30) umol/L Total Protein 4.9 L (6.3-8.2) g/dL Albumin 2.1 L (3.5-5.0) g/dL 08/06/19 Range/Units 11:19 RBC (3.80-5.40) m/uL Hgb (11.4-16.0) gm/dL Hct (34.0-46.0) % MCV (80.0-100.0) fL MCH (25.0-35.0) pg RDW (11.5-15.5) % Plt Count (150-450) k/uL Lymphocytes # (1.0-4.8) k/uL Macrocytosis Chloride (98-107) mmol/L Carbon Dioxide (22-30) mmol/L Glucose (74-99) mg/dL POC Glucose (mg/dL) 207 H (75-99) mg/dL Calcium (8.4-10.2) mg/dL Total Bilirubin (0.2-1.3) mg/dL AST (14-36) U/L Alkaline Phosphatase (38-126) U/L Ammonia (<30) umol/L Total Protein (6.3-8.2) g/dL Albumin (3.5-5.0) g/dL Assessment and Plan (1) Intractable nausea and vomiting Current Visit: Yes Status: Resolved Priority: High Code(s): R11.2 - NAUSEA WITH VOMITING, UNSPECIFIED SNOMED Code(s): 720357212 (2) Cirrhosis of liver with ascites Current Visit: No Status: Acute Code(s): K74.60 - UNSPECIFIED CIRRHOSIS OF LIVER; R18.8 - OTHER ASCITES SNOMED Code(s): 22204893 (3) Hepatic encephalopathy Current Visit: No Status: Acute Code(s): K72.90 - HEPATIC FAILURE, UNSPECIFIED WITHOUT COMA SNOMED Code(s): 64098664 Plan: Supportive care Okay for sodium restricted diet Continue Xifaxan and lactulose Continue dicyclomine Continue antiemetics as needed Continue diuresis with Lasix and Aldactone Thank you for allowing us to participate in the care of this patient to gastroenterology service will stand by, please call us back with any questions or concerns
[2019-08-06 17:15] LABS: Glucose,Whole Blood 199 mg/dL (75-99)
[2019-08-06 20:13] LABS: Glucose,Whole Blood 133 mg/dL (75-99)
[2019-08-07 06:13] VITALS: BP 113/58; PULSE 62; RESP 18; TEMP 98.3
[2019-08-07 07:00] LABS: Glucose,Whole Blood 114 mg/dL (75-99)
[2019-08-07] MEDS: INSULIN ASPART (NovoLOG) 100 UNIT/ML VIAL SQ SCH (07:28)
[2019-08-07 08:15] LABS: Albumin 2.2 g/dL (3.5-5.0); Potassium 3.5 mmol/L (3.5-5.1); Total Bilirubin 1.7 mg/dL (0.2-1.3); Total Protein 5.3 g/dL (6.3-8.2)
[2019-08-07 08:25] LABS: Anisocytosis Slight; HCT 30.5 % (34.0-46.0); HGB 10.1 gm/dL (11.4-16.0); MCH 35.6 pg (25.0-35.0); MCHC 33.2 g/dL (31.0-37.0); MCV 107.1 fL (80.0-100.0); Macrocytosis Marked; Mean Platelet Volume 9.5; RBC 2.84 m/uL (3.80-5.40); RDW 16.7 % (11.5-15.5); WBC 3.5 k/uL (3.8-10.6)
[2019-08-07] MEDS: FERROUS SULFATE 325 MG TAB PO SCH (08:25)
[2019-08-07] MEDS: ISOSORBIDE MONONITRATE ER 30 MG TAB.ER.24H PO SCH (08:25)
[2019-08-07] MEDS: FUROSEMIDE 40 MG TAB PO SCH (08:26)
[2019-08-07] MEDS: PANTOPRAZOLE 40 MG TABLET PO SCH (08:26)
[2019-08-07] MEDS: MORPHINE SULFATE ER 15 MG TABLET PO SCH (08:26)
[2019-08-07] MEDS: CHOLECALCIFEROL 1,000 UNIT TAB PO SCH (08:26)
[2019-08-07] MEDS: SPIRONOLACTONE 25 MG TAB PO SCH (08:26)
[2019-08-07] MEDS: LACTULOSE 20 GM/30 ML CUP PO SCH (08:26)
[2019-08-07] MEDS: METOPROLOL TARTRATE 25 MG TAB PO SCH (08:27)
[2019-08-07] MEDS: SUCRALFATE 1 GM TAB PO SCH (08:29)
[2019-08-07] MEDS: MAG HYDROX/AL HYDROX/SIMETH 30 ML, LIDOCAINE VISCOUS 30 ML, diphenhydrAMINE ELIXIR 75 M... PO SCH ×4 (08:29)
[2019-08-07] MEDS: buPROPion SR 150 MG TABLET.ER PO SCH (08:35)
[2019-08-07] MEDS: DICYCLOMINE 20 MG TAB PO SCH (08:35)
[2019-08-07] MEDS: RIFAXIMIN 550 MG TABLET PO SCH (08:35)
[2019-08-07] MEDS: AZITHROMYCIN 250 MG TAB PO SCH (08:35)
[2019-08-07 09:27] LABS: Platelet Count 66 k/uL (150-450)
--- NOTE | 2019-08-07 10:15 | P.DS ---
Providers Date of admission: 07/29/19 20:40 Expected date of discharge: 08/07/19 Attending physician: Artemio Lea Consults: 07/30/19 15:26 Consult Physician Routine Consulting Provider: Cem Estrada Consult Reason/Comments: abdominal pain, Do you want consulting provider notified?: Yes 08/03/19 09:52 Consult Physician Routine Consulting Provider: Mika Jacobson Consult Reason/Comments: growth under tongue Do you want consulting provider notified?: Yes 08/03/19 15:05 Consult Physician Routine Consulting Provider: Grady Whitley Consult Reason/Comments: growth under tonuge Do you want consulting provider notified?: Yes Primary care physician: Gilma Martinez [facility] Course: Discharge diagnosis #1 abdominal pain nausea and vomiting. Status post EGD showing mild antral gastritis no evidence of esophagitis or peptic ulcer disease. Advanced diet as tolerated. Per GI services continue Protonix 40 mg daily and antiemetics. #2 poor appetite due to nausea and vomiting #3 underlying history of hepatocellular carcinoma. Oncology service is following #4 underlying history of liver cirrhosis #5 underlying history of hypertension #6 underlying history of insulin-dependent diabetes mellitus #7 underlying history of depression #8 anemia of chronic disease related to known hepatocellular carcinoma. IV iron ordered per oncology services #9 pancytopenia elevated to hepatocellular carcinoma #10 acities secondary to chronic liver disease. s/p paracentesis 4.7L removed. Patient maintained on Aldactone and Lasix advised to follow-up with consulting providers and PCP #11. Growth noted to right side of tongue. ENT has been consulted to further evaluate. Oral surgery has been consulted. Both ENT and oral surgery advised to follow-up outpatient not current inpatient issue. Patient will follow up outpatient with Dr. Cordova is for possible biopsy of growth #12. Increased congestion with upper respiratory symptoms. Chest x-ray completed showing no acute pulmonary process Mucinex and throat lozenges have been ordered. Patient will be DC'd on azithromycin for 5 more days Hospital course Charlene Keenan is a 73-year-old female well known to my practice who presented to [facility] emergency room with a chief complaint of abdominal pain nausea and vomiting, patient has a known history of liver cancer, she was recently admitted to [facility] with similar symptoms she was seen by gastroenterology and was treated symptomatically and was discharged home, however her symptoms worsened and she decided to come back to emergency room. Patient is complaining of feeling weak and complaining of nausea and vomiting and poor appetite there is no fever or chills no headache or dizziness no chest pain no shortness of breath no cough no diarrhea no burning with urination no frequency or urgency no hematuria weakness or numbness in any of her extremities no change in her vision speech or gait. On 07/31/2019 patient is alert and oriented 3. Patient is feeling improved today. Planning EGD per GI services. At this time patient denies chest pain or shortness of breath. Patient denies nausea vomiting or diarrhea. Patient denies any urinary burning frequency On 08/01/2019 patient's alert and oriented 3. Patient underwent EGD yesterday with Dr. Figueroa showing mild antral gastritis and no evidence of esophagitis or peptic ulcer disease. Patient is still having some abdominal discomfort with nausea. Per GI services advance diet as tolerated PT and OT will be consulted for possible ECF placement. At this time patient denies chest pain or shortness any urinary burning or frequency. Patient does report some nausea. On 08/02/2019 patient's alert and oriented 3. Patient is status post paracentesis with 4.7L removed. Patient's symptoms have improved. Patient denies chest pain or shortness of breath. Patient denies nausea vomiting or diarrhea. Patient denies any urinary burning or frequency. Patient has been tolerating diet. Social consult for discharge planning possible ECF the patient qualifies 08/03/2019 patient's alert and oriented 3. Patient claims increased cough and upper respirations symptoms. At this time will order chest x-ray. Patient also complaining about soreness to tongue upon examination patient noticed to have growth to right underside of tongue. Will consult ENT to further evaluate. Patient reports some improvement with abdominal pain. Patient denies chest pain. Patient still having occasional nausea. Patient denies any urinary burning or frequency On 08/04/2019 patient's alert and oriented 3. Patient complaint of upper respiratory symptoms. Chest x-ray was completed showing no acute pulmonary process. Awaiting oral surgery to evaluate growth under tongue. Patient reports improvement with nausea and vomiting. Patient denies abdominal pain. Patient denies chest pain. Patient denies any urinary burning or frequency On 08/05/2019 patient was seen and examined on the medical floor, she is alert and oriented 3 in no apparent distress, she is complaining of sore throat, she is complaining of abdominal pain, otherwise she denies any complaints at this time there is no fever or chills no headache or dizziness no chest pain no shortness of breath no cough no nausea or vomiting no diarrhea no burning with urination no frequency or urgency and no hematuria On 08/06/2019 patient was seen and examined on the medical floor she is still complaining of sore throat and complaining of nausea otherwise she denies any complaints there is no fever or chills no headache or dizziness no chest pain no shortness of breath no cough no abdominal pain no diarrhea and no urinary sy mptoms On 08/07/2019 patient's alert and oriented 3. Patient still complaining about sore throat but does report symptoms have improved. Patient denies nausea or vomiting. Patient states she feels ready to be DC'd home. Patient will be DC'd on 5 more days of azithromycin for upper respiratory infection. Patient denies any chest pain or shortness of breath. Patient denies nausea vomiting or diarrhea. Patient denies any urinary burning frequency. Patient given educated on the importance of follow-up outpatient with PCP consulting providers for further management of care. Patient did verbalize understanding I performed an examination of the patient and discussed their management with the Nurse Practitioner. I have reviewed the Nurse Practitioner's notes and agree with the documented findings and plan of care Patient Condition at Discharge: Stable Plan - Discharge Summary Discharge Rx Participant: Yes New Discharge Prescriptions: New Spironolactone [Aldactone] 50 mg PO DAILY 30 Days #30 tab Furosemide [Lasix] 40 mg PO DAILY 30 Days #30 tablet Azithromycin [Zithromax] 250 mg PO DAILY 5 Days #5 tab Continue Sucralfate [Carafate] 1 gm PO ACHS Omeprazole [PriLOSEC] 20 mg PO BID Insulin Regular, Human [NovoLIN R] 10 unit SQ AC-TID Cholecalciferol [Vitamin D3 (25 Mcg = 1000 Iu)] 4,000 unit PO DAILY Ferrous Sulfate [Iron (65 MG Elemental)] 325 mg PO BID Insulin NPH [humuLIN N] 18 unit SQ BID vial Morphine Sulfate [Ms Contin] 15 mg PO BID Ondansetron Odt [Zofran ODT] 8 mg SL DAILY PRN PRN Reason: Nausea Metoprolol Tartrate [Lopressor] 6.25 mg PO DAILY buPROPion HCL [Wellbutrin SR] 150 mg PO BID clonazePAM [KlonoPIN] 0.5 mg PO Q8HR PRN PRN Reason: Anxiety Lactulose [Cephulac] 30 gm PO TID Isosorbide Mononitrate ER [Imdur] 30 mg PO DAILY 30 Days #30 tab.er.24h Rifaximin [Xifaxan] 550 mg PO BID tablet Dicyclomine [Bentyl] 20 mg PO QID 30 Days #120 tab Discontinued Nystatin 100,000 Unit/ml Susp [Mycostatin Oral Susp] 500,000 unit PO QID 7 Days #21 cup Discharge Medication List Omeprazole [PriLOSEC] 20 mg PO BID 10/23/18 [History] Sucralfate [Carafate] 1 gm PO ACHS 10/23/18 [History] Insulin Regular, Human [NovoLIN R] 10 unit SQ AC-TID 10/24/18 [History] Cholecalciferol [Vitamin D3 (25 Mcg = 1000 Iu)] 4,000 unit PO DAILY 01/16/19 [History] Ferrous Sulfate [Iron (65 MG Elemental)] 325 mg PO BID 01/31/19 [History] Insulin NPH [humuLIN N] 18 unit SQ BID vial 02/06/19 [Rx] Morphine Sulfate [Ms Contin] 15 mg PO BID 05/15/19 [History] Metoprolol Tartrate [Lopressor] 6.25 mg PO DAILY 06/12/19 [History] Ondansetron Odt [Zofran ODT] 8 mg SL DAILY PRN 06/12/19 [History] buPROPion HCL [Wellbutrin SR] 150 mg PO BID 06/12/19 [History] clonazePAM [KlonoPIN] 0.5 mg PO Q8HR PRN 06/12/19 [History] Lactulose [Cephulac] 30 gm PO TID 07/22/19 [History] Dicyclomine [Bentyl] 20 mg PO QID 30 Days #120 tab 07/26/19 [Rx] Isosorbide Mononitrate ER [Imdur] 30 mg PO DAILY 30 Days #30 tab.er.24h 07/26/19 [Rx] Rifaximin [Xifaxan] 550 mg PO BID tablet 09/11/19 [Rx] Azithromycin [Zithromax] 250 mg PO DAILY 5 Days #5 tab 08/07/19 [Rx] Furosemide [Lasix] 40 mg PO DAILY 30 Days #30 tablet 08/07/19 [Rx] Spironolactone [Aldactone] 50 mg PO DAILY 30 Days #30 tab 08/07/19 [Rx] Follow up Appointment(s)/Referral(s): [facility], [NON-STAFF] - 1 Week Grady Whitley DDS [STAFF PHYSICIAN] - 1 Week Artemio Lea MD [STAFF PHYSICIAN] - 1 Week Activity/Diet/Wound Care/Special Instructions: Followup with Dr. Whitley in 1-2 weeks. Discharge Disposition: HOME WITH HOME HEALTH SERVICES
[2019-08-07 11:17] LABS: Glucose,Whole Blood 204 mg/dL (75-99)
[2019-08-07 11:32] LABS: Eosinophils # (M) 0.11 k/uL (0-0.7); Lymphocytes # (M) 0.91 k/uL (1.0-4.8); Monocytes # (M) 0.39 k/uL (0-1.0); Neutrophils % (M) 60 %; Nucleated Red Blood Cells 0 /100 WBC (0-0); Poikilocytosis (M) Present; Total Cells Counted 100
--- NOTE | 2019-08-07 11:34 | CONS ---
CONSULTATION DATE OF CONSULTATION: 08/03/2019. CHIEF COMPLAINT: "There is something on my tongue." HISTORY OF PRESENT ILLNESS: The patient has been admitted for abdominal pain, nausea and vomiting. She is ready for discharge when she noticed something on the back of her right tongue. This is the reason for the consultation. The patient denies biting the tongue or traumatizing it in any way. The patient states that this has not been present in the past. PATIENT'S PAST MEDICAL HISTORY: Significant for cancer, diabetes mellitus, hypertension, liver disease, history of an PR, and renal disease. She has had hepatocellular liver cancer with chemo, last being performed in 2018, and she has consequently had ascites with paracenteses in May of 2019. PAST SURGICAL HISTORY: Significant for appendectomy, bowel resection, , cholecystectomy, hysterectomy, and tonsillectomy. She has also had multiple liver biopsies in the past. SOCIAL HISTORY: Has been unremarkable. She denies smoking or alcohol use. MEDICATIONS: Include omeprazole, Carafate, insulin, vitamin D, iron, metoprolol, Zofran, Wellbutrin, Klonopin, Bentyl, lactulose, morphine. ALLERGIC: To OXYCODONE, PENICILLIN, DILAUDID, GREG INHIBITOR and AMLODIPINE. PHYSICAL EXAM: Shows the patient to be resting comfortably in bed. Her vitals are stable. She is afebrile. Head and neck examination reveals no obvious swelling or asymmetry. There is no swelling in the neck. Intraoral examination reveals a very small ulcer in the right posterior lateral tongue. It is soft and it is non indurated. There are no other lesions noted. ASSESSMENT: Ulcer, most likely traumatic in nature. PLAN: The patient can be discharged as planned and she will follow up in my office in one week for re-evaluation of this lesion. MMODL / IJN: [id number] /
== END 2019-08-07 11:50 | disposition home health service (06) | DRG 392 ==
LOC: EC 16:33 → 3NMEDONC 20:40
PROVIDERS: ADMIT Internal Medicine; ATTEND Internal Medicine
PROC: 0DB78ZX Excision of Stomach, Pylorus, Via Natural or Artificial Opening Endoscopic, Diagnostic (ICD-10-PCS; 2019-08-01)
PROC: 0W9G3ZX Drainage of Peritoneal Cavity, Percutaneous Approach, Diagnostic (ICD-10-PCS; principal; 2019-08-02)
DX: K29.70 Gastritis, unspecified, without bleeding (principal); C22.0 Liver cell carcinoma; D61.818 Other pancytopenia; R18.8 Other ascites; F41.9 Anxiety disorder, unspecified; F32.9 Major depressive disorder, single episode, unspecified; E78.5 Hyperlipidemia, unspecified; K74.69 Other cirrhosis of liver; K21.9 Gastro-esophageal reflux disease without esophagitis; K44.9 Diaphragmatic hernia without obstruction or gangrene; N18.3 Chronic kidney disease, stage 3 (moderate); E11.22 Type 2 diabetes mellitus with diabetic chronic kidney disease; E61.1 Iron deficiency; G89.29 Other chronic pain; I12.9 Hypertensive chronic kidney disease with stage 1 through stage 4 chronic kidney disease, or unspecified chronic kidney disease; I25.2 Old myocardial infarction; J06.9 Acute upper respiratory infection, unspecified; K14.0 Glossitis; K12.30 Oral mucositis (ulcerative), unspecified; K72.10 Chronic hepatic failure without coma; K76.0 Fatty (change of) liver, not elsewhere classified; Z79.4 Long term (current) use of insulin; Z79.899 Other long term (current) drug therapy; Z82.49 Family history of ischemic heart disease and other diseases of the circulatory system; Z92.21 Personal history of antineoplastic chemotherapy; Z87.11 Personal history of peptic ulcer disease; Z87.891 Personal history of nicotine dependence; Z90.710 Acquired absence of both cervix and uterus; Z93.2 Ileostomy status; Z90.49 Acquired absence of other specified parts of digestive tract; Z88.5 Allergy status to narcotic agent; Z88.0 Allergy status to penicillin; Z88.8 Allergy status to other drugs, medicaments and biological substances
CPT/HCPCS: 36415; 43239; 49083; 71046; 74018; 76705; 80053; 81001; 82105; 82140; 82150; 82728; 83540; 83550; 83690; 83921; 85025; 85610; 85730; 88108; 88305; 96361; 96374; 96375; 96376; 99285

== ENCOUNTER 2019-08-21 11:39 | Inpatient (IN) | payer MEDICARE ==
[2019-08-21 12:39] LABS: Appearance,Urine Cloudy (Clear); Bacteria,Urine Many /hpf; Bilirubin,Urine Negative (Negative); Blood,Urine Trace (Negative); Color,Urine Yellow; Glucose,Urine (UA) Negative (Negative); Hyaline Casts,Urine 14 /lpf (0-2); Ketones,Urine Negative (Negative); Leukocyte Esterase,Urine Moderate (Negative); Mucus,Urine Occasional /hpf; Nitrite,Urine Negative (Negative); PH, Urine 5.5 (5.0-8.0); Protein,Urine Trace (Negative); RBC,Urine 3 /hpf (0-5); Squamous Epithelial Cell,Urine 4 /hpf (0-4); Urobilinogen,Urine <2.0 mg/dL (<2.0); WBC,Urine 49 /hpf (0-5)
--- NOTE | 2019-08-21 12:46 | ED ---
Recheck HPI - General Chief Complaint: Recheck/Abnormal Lab/Rx Stated Complaint: swelling, poss uti, abnormal labs Time Seen by Provider: 08/21/19 12:04 Source: patient Mode of arrival: wheelchair Limitations: no limitations - History of Present Illness Initial Comments: 73-year-old female with history of liver cancer, chronic ascites presents emergency department for evaluation of abdominal swelling--patient states that she gets the fluid have to paracentesis his. She states that she presented for evaluation her primary care provider and she had told them she is not taking her lactulose he was concerned that she possibly had increased ammonia and she was sent for labs in the emergency department. Patient states she does have some discomfort and fullness in the abdomen. She denies a severe bowel pain chest pain shortness of breath. Patient states that she has had diarrhea for a few weeks and that is why she wasn't taking her lactulose. Patient states the diarrhea has subsided. Patient states she has no dysuria or urgency frequency was told to UTI at her outpatient primary care provider. Patient denies any flank pain fevers flulike symptoms. Remaining review of systems negative. Upon arrival patient appears well no signs of acute distress. - Related Data Home Medications Medication Instructions Recorded Confirmed Omeprazole [PriLOSEC] 20 mg PO BID 10/23/18 08/21/19 Sucralfate [Carafate] 1 gm PO ACHS 10/23/18 08/21/19 Insulin Regular, Human [NovoLIN R] 10 unit SQ AC-TID 10/24/18 08/21/19 Cholecalciferol [Vitamin D3 (25 4,000 unit PO DAILY 01/16/19 08/21/19 Mcg = 1000 Iu)] Ferrous Sulfate [Iron (65 MG 325 mg PO BID 01/31/19 08/21/19 Elemental)] Morphine Sulfate [Ms Contin] 15 mg PO BID 05/15/19 08/21/19 Metoprolol Tartrate [Lopressor] 6.25 mg PO DAILY 06/12/19 08/21/19 Ondansetron Odt [Zofran ODT] 8 mg SL DAILY PRN 06/12/19 08/21/19 buPROPion HCL [Wellbutrin SR] 150 mg PO BID 06/12/19 08/21/19 clonazePAM [KlonoPIN] 0.5 mg PO Q8HR PRN 06/12/19 08/21/19 Lactulose [Cephulac] 30 gm PO TID 07/22/19 08/21/19 Previous Rx's Medication Instructions Recorded Insulin NPH [humuLIN N] 18 unit SQ BID vial 02/06/19 Dicyclomine [Bentyl] 20 mg PO QID 30 Days #120 tab 07/26/19 Isosorbide Mononitrate ER [Imdur] 30 mg PO DAILY 30 Days #30 07/26/19 tab.er.24h Rifaximin [Xifaxan] 550 mg PO BID tablet 07/26/19 Furosemide [Lasix] 40 mg PO DAILY 30 Days #30 tablet 08/07/19 Spironolactone [Aldactone] 50 mg PO DAILY 30 Days #30 tab 08/07/19 Allergies Allergy/AdvReac Type Severity Reaction Status Date / Time amlodipine Allergy Rash/Hives Verified 08/21/19 12:41 oxycodone Allergy Rash/Hives Verified 08/21/19 12:41 Penicillins Allergy Rash/Hives Verified 08/21/19 12:41 hydromorphone [From Dilaudid] AdvReac Mild tactile Verified 08/21/19 12:41 disturbance GREG Inhibitors AdvReac Cough Verified 08/21/19 12:41 sodium dodecyclbenzene Allergy Rash/Hives Uncoded 07/22/19 08:08 sulfonate Review of Systems ROS Statement: Those systems with pertinent positive or pertinent negative responses have been documented in the HPI. ROS Other: All systems not noted in ROS Statement are negative. Past Medical History Past Medical History: Cancer, Diabetes Mellitus, Hypertension, Liver Disease, Myocardial Infarction ([place]), Renal Disease Additional Past Medical History / Comment(s): Hepatocellular liver cancer with chemo immobilization-last time being 2017, ascities with paracentesis's may 2019, nonalcoholic liver cirrhosis, chronic pancytopenia, chronic elevated ammonia levels, hepatic encephalopathy, chronic elevated LFTs, chronic abdominal pain, stomach ulcer, diverticular disease with ileostomy, IDDM type II, iron anemia, CKD stage III, nonsustained vtach, UTI, high ammonia levels Last Myocardial Infarction Date:: unk History of Any Multi-Drug Resistant Organisms: MRSA, VRE Date of last positivie culture/infection: 07/22/19- VRE; 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 Past Anesthesia/Blood Transfusion Reactions: No Reported Reaction Past Psychological History: Anxiety, Depression Smoking Status: Never smoker Past Alcohol Use History: None Reported Past Drug Use History: None Reported - Past Family History Mother History Unknown: Yes Family Medical History: Congestive Heart Failure (CHF) Additional Family Medical History / Comment(s): Mother is 94 yrs old. Father Family Medical History: Chest Pain / Angina Additional Family Medical History / Comment(s): Father is . General Exam - General Exam Comments Initial Comments: General: The patient is awake and alert, in no distress, and does not appear acutely ill. Eye: Pupils are equal, round and reactive to light, extra-ocular movements are intact. No nystagmus. There is normal conjunctiva bilaterally. No signs of icterus. Ears, nose, mouth and throat: There are moist mucous membranes and no oral lesions. Neck: The neck is supple, there is no tenderness or JVD. Cardiovascular: There is a regular rate and rhythm. No murmur, rub or gallop is appreciated. Respiratory: Lungs are clear to auscultation, respirations are non-labored, breath sounds are equal. No wheezes, stridor, rales, or rhonchi. Gastrointestinal: Soft, non-distended, non-tender abdomen without masses or organomegaly noted. There is no rebound or guarding present. No CVA tenderness. Bowel sounds are unremarkable. Musculoskeletal: Normal ROM, no tenderness. Strength 5/5. Sensation intact. Radial pulses equal bilaterally 2+. Neurological: A&O x 3. CN II-XII intact grossly, There are no obvious motor or sensory deficits. Coordination appears grossly intact. Speech is normal. Skin: Skin is warm and dry and no rashes or lesions are noted. Psychiatric: Cooperative, appropriate mood & affect, normal judgment. Limitations: no limitations Course Vital Signs 08/21/19 08/21/19 12:11 14:26 Temperature 99.1 F Pulse Rate 53 L 56 L Respiratory 18 18 Rate Blood Pressure 112/66 96/56 O2 Sat by Pulse 100 100 Oximetry Medical Decision Making - Medical Decision Making 33-year-old female with history of liver cirrhosis from liver cancer chronic ascites presented for evaluation of abdominal fullness, possible elevated am monia secondary to noncompliance with lactulose. Patient does not appear altered. No tremors or confusion noted. Patient's laboratory studies appear stable comparison with previous baseline. Patient's abdomen is not taut and distended. Soft. Patient does not have a fever. No leukocytosis. No concern for SBP. Patient had no blood glucose given juice as well as food. Case was discussed with attending provider Dr. Lyle who discussed case wt patients PCP who recommended discharge and outpatient f/u. He wrote prescription for ciprofloxacin to treat UTI. Patient agreeable wtih discharge and was discharged appearing well. Aware of return parameters. - Lab Data Result diagrams: 08/21/19 12:30 08/21/19 12:30 Lab Results 08/21/19 08/21/19 08/21/19 Range/Units 12:10 12:30 12:30 WBC 4.6 (3.8-10.6) k/uL RBC 3.21 L (3.80-5.40) m/uL Hgb 11.6 (11.4-16.0) gm/dL Hct 34.8 (34.0-46.0) % MCV 108.7 H (80.0-100.0) fL MCH 36.1 H (25.0-35.0) pg MCHC 33.2 (31.0-37.0) g/dL RDW 15.3 (11.5-15.5) % Plt Count 78 L (150-450) k/uL Neutrophils % 68 % Lymphocytes % 18 % Monocytes % 7 % Eosinophils % 5 % Basophils % 0 % Neutrophils # 3.1 (1.3-7.7) k/uL Lymphocytes # 0.8 L (1.0-4.8) k/uL Monocytes # 0.3 (0-1.0) k/uL Eosinophils # 0.2 (0-0.7) k/uL Basophils # 0.0 (0-0.2) k/uL Manual Slide Review Performed Macrocytosis Marked A PT (9.0-12.0) sec INR (<1.2) APTT (22.0-30.0) sec Sodium 136 L (137-145) mmol/L Potassium 4.4 (3.5-5.1) mmol/L Chloride 109 H (98-107) mmol/L Carbon Dioxide 21 L (22-30) mmol/L Anion Gap 6 mmol/L BUN 14 (7-17) mg/dL Creatinine 1.05 H (0.52-1.04) mg/dL Est GFR (CKD-EPI)AfAm 62 (>60 ml/min/1.73 sqM) Est GFR (CKD-EPI)NonAf 54 (>60 ml/min/1.73 sqM) Glucose 61 L (74-99) mg/dL Calcium 8.4 (8.4-10.2) mg/dL Total Bilirubin 1.9 H (0.2-1.3) mg/dL AST 58 H (14-36) U/L ALT 27 (9-52) U/L Alkaline Phosphatase 250 H (38-126) U/L Ammonia (<30) umol/L Total Protein 6.2 L (6.3-8.2) g/dL Albumin 2.6 L (3.5-5.0) g/dL Lipase <10 L (23-300) U/L Urine Color Yellow Urine Appearance Cloudy H (Clear) Urine pH 5.5 (5.0-8.0) Ur Specific [place] 1.020 (1.001-1.035) Urine Protein Trace H (Negative) Urine Glucose (UA) Negative (Negative) Urine Ketones Negative (Negative) Urine Blood Trace H (Negative) Urine Nitrite Negative (Negative) Urine Bilirubin Negative (Negative) Urine Urobilinogen <2.0 (<2.0) mg/dL Ur Leukocyte Esterase Moderate H (Negative) Urine RBC 3 (0-5) /hpf Urine WBC 49 H (0-5) /hpf Ur Squamous Epith Cells 4 (0-4) /hpf Urine Bacteria Many H (None) /hpf Hyaline Casts 14 H (0-2) /lpf Urine Mucus Occasional H (None) /hpf 08/21/19 08/21/19 Range/Units 12:30 12:30 WBC (3.8-10.6) k/uL RBC (3.80-5.40) m/uL Hgb (11.4-16.0) gm/dL Hct (34.0-46.0) % MCV (80.0-100.0) fL MCH (25.0-35.0) pg MCHC (31.0-37.0) g/dL RDW (11.5-15.5) % Plt Count (150-450) k/uL Neutrophils % % Lymphocytes % % Monocytes % % Eosinophils % % Basophils % % Neutrophils # (1.3-7.7) k/uL Lymphocytes # (1.0-4.8) k/uL Monocytes # (0-1.0) k/uL Eosinophils # (0-0.7) k/uL Basophils # (0-0.2) k/uL Manual Slide Review Macrocytosis PT 14.7 H (9.0-12.0) sec INR 1.5 H (<1.2) APTT 28.6 (22.0-30.0) sec Sodium (137-145) mmol/L Potassium (3.5-5.1) mmol/L Chloride (98-107) mmol/L Carbon Dioxide (22-30) mmol/L Anion Gap mmol/L BUN (7-17) mg/dL Creatinine (0.52-1.04) mg/dL Est GFR (CKD-EPI)AfAm (>60 ml/min/1.73 sqM) Est GFR (CKD-EPI)NonAf (>60 ml/min/1.73 sqM) Glucose (74-99) mg/dL Calcium (8.4-10.2) mg/dL Total Bilirubin (0.2-1.3) mg/dL AST (14-36) U/L ALT (9-52) U/L Alkaline Phosphatase (38-126) U/L Ammonia <9 (<30) umol/L Total Protein (6.3-8.2) g/dL Albumin (3.5-5.0) g/dL Lipase (23-300) U/L Urine Color Urine Appearance (Clear) Urine pH (5.0-8.0) Ur Specific [place] (1.001-1.035) Urine Protein (Negative) Urine Glucose (UA) (Negative) Urine Ketones (Negative) Urine Blood (Negative) Urine Nitrite (Negative) Urine Bilirubin (Negative) Urine Urobilinogen (<2.0) mg/dL Ur Leukocyte Esterase (Negative) Urine RBC (0-5) /hpf Urine WBC (0-5) /hpf Ur Squamous Epith Cells (0-4) /hpf Urine Bacteria (None) /hpf Hyaline Casts (0-2) /lpf Urine Mucus (None) /hpf Disposition Clinical Impression: Ascites, Chronic liver disease, UTI (urinary tract infection) Disposition: HOME SELF-CARE Condition: Good Additional Instructions: Please use medication as discussed. Please follow-up with family doctor in the next 2 days. Please return to emergency room if the symptoms increase or worsen or for any other concerns. Is patient prescribed a controlled substance at d/c from ED?: No Referrals: Gilma Martinez MD [Primary Care Provider] - 1-2 days Time of Disposition: 15:30
[2019-08-21 12:54] LABS: INR 1.5 (<1.2); Partial Thromboplastin Time 28.6 sec (22.0-30.0); Prothrombin Time 14.7 sec (9.0-12.0)
[2019-08-21 13:03] LABS: ALT 27 U/L (9-52); AST 58 U/L (14-36); African American GFR (CKD) 62 (>60 ml/min/1.73 sqM); Albumin 2.6 g/dL (3.5-5.0); Alkaline Phosphatase 250 U/L (38-126); Anion Gap 6 mmol/L; Blood Urea Nitrogen 14 mg/dL (7-17); Calcium 8.4 mg/dL (8.4-10.2); Carbon Dioxide 21 mmol/L (22-30); Chloride 109 mmol/L (98-107); Glucose 61 mg/dL (74-99); Potassium 4.4 mmol/L (3.5-5.1); Sodium 136 mmol/L (137-145); Total Bilirubin 1.9 mg/dL (0.2-1.3); Total Protein 6.2 g/dL (6.3-8.2)
[2019-08-21 13:10] LABS: Basophils % (A) 0 %; Eosinophils # (A) 0.2 k/uL (0-0.7); Eosinophils % (A) 5 %; HCT 34.8 % (34.0-46.0); HGB 11.6 gm/dL (11.4-16.0); Lymphocytes # (A) 0.8 k/uL (1.0-4.8); Lymphocytes % (A) 18 %; MCH 36.1 pg (25.0-35.0); MCHC 33.2 g/dL (31.0-37.0); MCV 108.7 fL (80.0-100.0); Macrocytosis Marked; Monocytes # (A) 0.3 k/uL (0-1.0); Monocytes % (A) 7 %; Neutrophils # (A) 3.1 k/uL (1.3-7.7); Neutrophils % (A) 68 %; RBC 3.21 m/uL (3.80-5.40); RDW 15.3 % (11.5-15.5); WBC 4.6 k/uL (3.8-10.6)
[2019-08-21 13:46] LABS: Platelet Count 78 k/uL (150-450)
[2019-08-21] MEDS ORDERED: SODIUM CHLORIDE 0.9% 1,000 ML IV ONE (15:27)
[2019-08-21] MEDS ORDERED: NALOXONE 0.4 MG/ML 1 ML VIAL IV PRN (17:04)
[2019-08-21] MEDS: SODIUM CHLORIDE 0.9% 1,000 ML IV SCH (18:18)
[2019-08-21] MEDS ORDERED: clonazePAM 0.5 MG TAB PO PRN (18:22)
[2019-08-21] MEDS: MORPHINE SULFATE 4 MG/ML SYRINGE IVP PRN (19:31)
[2019-08-21 19:56] LABS: Glucose,Whole Blood 136 mg/dL (75-99)
[2019-08-21 20:04] VITALS: BMI 31.4
[2019-08-22] MEDS: SODIUM CHLORIDE 0.9% 1,000 ML IV SCH ×2 (05:53→12:26)
[2019-08-22 07:21] LABS: Glucose,Whole Blood 83 mg/dL (75-99)
[2019-08-22] MEDS ORDERED: ONDANSETRON 4 MG/2 ML VIAL IVP PRN (08:31)
[2019-08-22] MEDS ORDERED: FAMOTIDINE 20 MG TAB PO SCH (09:00)
--- NOTE | 2019-08-22 09:09 | US ---
EXAMINATION TYPE: US abdomen limited DATE OF EXAM: 08/22/2019 COMPARISON: NONE CLINICAL HISTORY: assess for fluid pocket please. distended, h/o of ascites TECHNIQUE/FINDINGS: Limited grayscale abdominal ultrasound was performed in all 4 quadrants to assess for ascites only. Moderate ascites seen. LLQ had largest pocket measuring at least 13 cm. Skin to fl uid distance of 2.0 cm. IMPRESSION: Moderate abdominopelvic ascites.
[2019-08-22] MEDS: CHOLECALCIFEROL 1,000 UNIT TAB PO SCH (09:29)
[2019-08-22] MEDS: METOPROLOL TARTRATE 12.5 MG TAB PO SCH (09:29)
[2019-08-22] MEDS: FERROUS SULFATE 325 MG TAB PO SCH ×2 (09:29→21:52)
[2019-08-22] MEDS: ISOSORBIDE MONONITRATE ER 30 MG TAB.ER.24H PO SCH (09:29)
[2019-08-22] MEDS: FUROSEMIDE 40 MG TAB PO SCH (09:29)
[2019-08-22] MEDS: SPIRONOLACTONE 25 MG TAB PO SCH (09:30)
[2019-08-22] MEDS: LACTULOSE 20 GM/30 ML CUP PO SCH ×3 (09:30→23:39)
[2019-08-22] MEDS: MORPHINE SULFATE ER 15 MG TABLET PO SCH ×2 (09:30→21:53)
[2019-08-22] MEDS: MORPHINE SULFATE 4 MG/ML SYRINGE IVP PRN ×3 (09:39→19:33)
[2019-08-22 09:56] LABS: Basophils % (A) 0 %; Eosinophils # (A) 0.2 k/uL (0-0.7); Eosinophils % (A) 5 %; HGB 11.4 gm/dL (11.4-16.0); Hypochromasia Slight; Lymphocytes # (A) 0.8 k/uL (1.0-4.8); Lymphocytes % (A) 21 %; MCH 36.4 pg (25.0-35.0); MCHC 31.6 g/dL (31.0-37.0); Macrocytosis Marked; Mean Platelet Volume 9.2; Monocytes # (A) 0.2 k/uL (0-1.0); Monocytes % (A) 7 %; Neutrophils # (A) 2.3 k/uL (1.3-7.7); Neutrophils % (A) 64 %; RBC 3.13 m/uL (3.80-5.40); RDW 15.3 % (11.5-15.5); WBC 3.6 k/uL (3.8-10.6)
[2019-08-22 10:01] LABS: Albumin 2.6 g/dL (3.5-5.0); Calcium 8.2 mg/dL (8.4-10.2); Total Bilirubin 2.4 mg/dL (0.2-1.3); Total Protein 6.5 g/dL (6.3-8.2)
[2019-08-22 10:08] LABS: Potassium 4.5 mmol/L (3.5-5.1)
[2019-08-22 10:11] LABS: Platelet Count 71 k/uL (150-450)
[2019-08-22 11:29] LABS: Glucose,Whole Blood 116 mg/dL (75-99)
[2019-08-22] MEDS: INSULIN NPH 300 UNIT/3 ML VIAL SQ SCH ×2 (12:22→21:57)
[2019-08-22] MEDS: DICYCLOMINE 20 MG TAB PO SCH ×4 (12:26→21:51)
[2019-08-22] MEDS: INSULIN REGULAR 100 UNIT/ML VIAL SQ SCH ×2 (12:26→17:33)
[2019-08-22] MEDS: RIFAXIMIN 550 MG TABLET PO SCH ×2 (12:26→21:51)
[2019-08-22] MEDS: SUCRALFATE 1 GM TAB PO SCH ×3 (12:26→21:52)
[2019-08-22] MEDS: buPROPion SR 150 MG TABLET.ER PO SCH ×2 (12:26→21:52)
[2019-08-22] MEDS: PANTOPRAZOLE 40 MG TABLET PO SCH (12:31)
--- NOTE | 2019-08-22 12:37 | P.HPIM ---
History of Present Illness H&P Date: 08/22/19 This is a 73-year-old female patient well known to my services. Patient presented to the ER with complaints of increased abdominal ascites and edema. Patient apparently went to her PCP yesterday and no concerns about patient's ammonia level being elevated due to patient not taking lactulose. Patient reports she does have abdominal discomfort and fullness. Patient does have a known past medical history of liver cancer, liver cirrhosis with previous paracentesis, anemia of chronic disease, depression, hypertension, diabetes mellitus type II and recent EGD for abdominal pain and nausea. Patient reports she has been taking her diuretics as scheduled. Ammonia level less than 9. Home meds resumed. Ultrasound-guided paracentesis has been ordered. At this time patient denies chest pain or shortness of breath. Patient denies nausea vomiting or diarrhea. Patient denies any urinary burning or frequency Review of Systems Please refer to HPI otherwise unremarkable Past Medical History Past Medical History: Cancer, Diabetes Mellitus, Hypertension, Liver Disease, Myocardial Infarction ([place]), Renal Disease Additional Past Medical History / Comment(s): Hepatocellular liver cancer with chemo immobilization-last time being 2017, ascities with paracentesis's may 2019, nonalcoholic liver cirrhosis, chronic pancytopenia, chronic elevated ammonia levels, hepatic encephalopathy, chronic elevated LFTs, chronic abdominal pain, stomach ulcer, diverticular disease with ileostomy, IDDM type II, iron anemia, CKD stage III, nonsustained vtach, UTI, high ammonia levels Last Myocardial Infarction Date:: unk History of Any Multi-Drug Resistant Organisms: MRSA, VRE Date of last positivie culture/infection: 07/22/19- VRE; 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 Past Anesthesia/Blood Transfusion Reactions: No Reported Reaction Past Psychological History: Anxiety, Depression Additional Psychological History / Comment(s): Reformed smoker. . Retired. No experience. No animal exposures Smoking Status: Former smoker Past Alcohol Use History: None Reported Additional Past Alcohol Use History / Comment(s): started smoking 1962 and quit 1965 Past Drug Use History: None Reported - Past Family History Mother History Unknown: Yes Family Medical History: Congestive Heart Failure (CHF) Additional Family Medical History / Comment(s): Mother is 94 yrs old. Father Family Medical History: Chest Pain / Angina Additional Family Medical History / Comment(s): Father is . Medications and Allergies Home Medications Medication Instructions Recorded Confirmed Type Omeprazole [PriLOSEC] 20 mg PO BID 10/23/18 08/21/19 History Sucralfate [Carafate] 1 gm PO ACHS 10/23/18 08/21/19 History Insulin Regular, Human [NovoLIN R] 10 unit SQ AC-TID 10/24/18 08/21/19 History Cholecalciferol [Vitamin D3 (25 4,000 unit PO DAILY 01/16/19 08/21/19 History Mcg = 1000 Iu)] Ferrous Sulfate [Iron (65 MG 325 mg PO BID 01/31/19 08/21/19 History Elemental)] Insulin NPH [humuLIN N] 18 unit SQ BID vial 02/06/19 08/21/19 Rx Morphine Sulfate [Ms Contin] 15 mg PO BID 05/15/19 08/21/19 History Metoprolol Tartrate [Lopressor] 6.25 mg PO DAILY 06/12/19 08/21/19 History Ondansetron Odt [Zofran ODT] 8 mg SL DAILY PRN 06/12/19 08/21/19 History buPROPion HCL [Wellbutrin SR] 150 mg PO BID 06/12/19 08/21/19 History clonazePAM [KlonoPIN] 0.5 mg PO Q8HR PRN 06/12/19 08/21/19 History Lactulose [Cephulac] 30 gm PO TID 07/22/19 08/21/19 History Dicyclomine [Bentyl] 20 mg PO QID 30 Days #120 tab 07/26/19 08/21/19 Rx Isosorbide Mononitrate ER [Imdur] 30 mg PO DAILY 30 Days #30 07/26/19 08/21/19 Rx tab.er.24h Rifaximin [Xifaxan] 550 mg PO BID tablet 07/26/19 08/21/19 Rx Furosemide [Lasix] 40 mg PO DAILY 30 Days #30 tablet 08/07/19 08/21/19 Rx Spironolactone [Aldactone] 50 mg PO DAILY 30 Days #30 tab 08/07/19 08/21/19 Rx Allergies Allergy/AdvReac Type Severity Reaction Status Date / Time amlodipine Allergy Rash/Hives Verified 08/21/19 12:41 oxycodone Allergy Rash/Hives Verified 08/21/19 12:41 Penicillins Allergy Rash/Hives Verified 08/21/19 12:41 hydromorphone [From Dilaudid] AdvReac Mild tactile Verified 08/21/19 12:41 disturbance GREG Inhibitors AdvReac Cough Verified 08/21/19 12:41 sodium dodecyclbenzene Allergy Rash/Hives Uncoded 07/22/19 08:08 sulfonate Physical Exam Vitals: Vital Signs Temp Pulse Pulse Resp BP BP Pulse Ox 08/22/19 11:05 61 16 112/68 98 08/22/19 10:23 55 L 16 119/67 98 08/22/19 10:05 63 16 120/67 08/22/19 05:33 98 F 62 16 122/69 98 08/21/19 21:33 99.1 F 66 18 138/65 100 08/21/19 19:29 98 F 62 18 105/55 100 08/21/19 18:15 99.0 F 61 18 115/71 99 08/21/19 15:54 66 18 129/57 98 08/21/19 14:26 56 L 18 96/56 100 Intake and Output 08/21/19 08/22/19 08/22/19 22:59 06:59 14:59 Intake Total 360 960 Balance 360 960 Intake: Intake, IV Titration 360 960 Amount Sodium Chloride 0.9% 1, 360 960 000 ml @ 120 mls/hr IV . Q8H20M [facility] Rx#:[id number] Other: Voiding Method Toilet Toilet # Voids 1 Head normocephalic Neck supple Lungs clear to auscultation bilaterally no wheezing or crackles Heart regular rate and rhythm S1-S2, no rub or gallop Abdomen rounded soft. right lower quadrant Extremities no edema Neuro alert and orientated to 3 Results CBC & Chem 7: 08/22/19 08:52 08/22/19 08:52 Labs: Abnormal Lab Results - Last 24 Hours (Table) 08/21/19 08/21/19 08/21/19 Range/Units 12:10 12:30 12:30 WBC (3.8-10.6) k/uL RBC 3.21 L (3.80-5.40) m/uL MCV 108.7 H (80.0-100.0) fL MCH 36.1 H (25.0-35.0) pg Plt Count 78 L (150-450) k/uL Lymphocytes # 0.8 L (1.0-4.8) k/uL Macrocytosis Marked A PT (9.0-12.0) sec INR (<1.2) Sodium 136 L (137-145) mmol/L Chloride 109 H (98-107) mmol/L Carbon Dioxide 21 L (22-30) mmol/L Creatinine 1.05 H (0.52-1.04) mg/dL Glucose 61 L (74-99) mg/dL POC Glucose (mg/dL) (75-99) mg/dL Calcium (8.4-10.2) mg/dL Total Bilirubin 1.9 H (0.2-1.3) mg/dL AST 58 H (14-36) U/L Alkaline Phosphatase 250 H (38-126) U/L Total Protein 6.2 L (6.3-8.2) g/dL Albumin 2.6 L (3.5-5.0) g/dL Lipase <10 L (23-300) U/L Urine Appearance Cloudy H (Clear) Urine Protein Trace H (Negative) Urine Blood Trace H (Negative) Ur Leukocyte Esterase Moderate H (Negative) Urine WBC 49 H (0-5) /hpf Urine Bacteria Many H (None) /hpf Hyaline Casts 14 H (0-2) /lpf Urine Mucus Occasional H (None) /hpf 08/21/19 08/21/19 08/22/19 Range/Units 12:30 19:55 08:52 WBC 3.6 L (3.8-10.6) k/uL RBC 3.13 L (3.80-5.40) m/uL MCV 115.0 H D (80.0-100.0) fL MCH 36.4 H (25.0-35.0) pg Plt Count 71 L (150-450) k/uL Lymphocytes # 0.8 L (1.0-4.8) k/uL Macrocytosis Marked A PT 14.7 H (9.0-12.0) sec INR 1.5 H (<1.2) Sodium (137-145) mmol/L Chloride (98-107) mmol/L Carbon Dioxide (22-30) mmol/L Creatinine (0.52-1.04) mg/dL Glucose (74-99) mg/dL POC Glucose (mg/dL) 136 H (75-99) mg/dL Calcium (8.4-10.2) mg/dL Total Bilirubin (0.2-1.3) mg/dL AST (14-36) U/L Alkaline Phosphatase (38-126) U/L Total Protein (6.3-8.2) g/dL Albumin (3.5-5.0) g/dL Lipase (23-300) U/L Urine Appearance (Clear) Urine Protein (Negative) Urine Blood (Negative) Ur Leukocyte Esterase (Negative) Urine WBC (0-5) /hpf Urine Bacteria (None) /hpf Hyaline Casts (0-2) /lpf Urine Mucus (None) /hpf 08/22/19 08/22/19 Range/Units 08:52 11:25 WBC (3.8-10.6) k/uL RBC (3.80-5.40) m/uL MCV (80.0-100.0) fL MCH (25.0-35.0) pg Plt Count (150-450) k/uL Lymphocytes # (1.0-4.8) k/uL Macrocytosis PT (9.0-12.0) sec INR (<1.2) Sodium (137-145) mmol/L Chloride 113 H (98-107) mmol/L Carbon Dioxide 20 L (22-30) mmol/L Creatinine (0.52-1.04) mg/dL Glucose (74-99) mg/dL POC Glucose (mg/dL) 116 H (75-99) mg/dL Calcium 8.2 L (8.4-10.2) mg/dL Total Bilirubin 2.4 H (0.2-1.3) mg/dL AST 70 H (14-36) U/L Alkaline Phosphatase 234 H (38-126) U/L Total Protein (6.3-8.2) g/dL Albumin 2.6 L (3.5-5.0) g/dL Lipase (23-300) U/L Urine Appearance (Clear) Urine Protein (Negative) Urine Blood (Negative) Ur Leukocyte Esterase (Negative) Urine WBC (0-5) /hpf Urine Bacteria (None) /hpf Hyaline Casts (0-2) /lpf Urine Mucus (None) /hpf Thrombosis Risk Factor Assmnt - Choose All That Apply Any of the Below Risk Factors Present?: Yes Each Factor Represents 1 point: Obesity (BMI >25) Other Risk Factors: Yes Each Risk Factor Represents 2 Points: Age 61-74 years Other congenital or acquired thrombophilia - If yes, enter type in comment: No Thrombosis Risk Factor Assessment Total Risk Factor Score: 3 Thrombosis Risk Factor Assessment Level: Moderate Risk Assessment and Plan Assessment: 1. Abdominal pain and fullness related to recurring abdominal ascites. Ultrasound guided paracentesis has been ordered. Patient maintained on Lasix and Aldactone. 2. History of nonalcoholic liver cirrhosis 3. History of hepatocellular carcinoma. Patient has been evaluated by oncology services multiple times. Patient has followed with oncologist out of [facility] previously 4. History of chronic kidney disease stage III 5. History of diverticulitis with ileostomy placement 6. Diabetes mellitus type 2 home dose of insulin reordered 7. History of elevated ammonia level related to hepatocellular carcinoma and nonalcoholic liver cirrhosis. Patient maintained on lactulose and Xifaxan. Ammonia level less than 9 8. History of urine colonization with VRE. UA showing moderate amount of leukocyte Estrace. Patient is asymptomatic at this time 9. History of depression 10. Recent EGD completed for abdominal pain and nausea on 08/07/2019 showing mild antral gastritis no evidence of esophagitis or peptic ulcer disease 11. 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 GI prophylaxis Pepcid Time with Patient: Greater than 30 (Greater than 60% of the total time spent in counseling and coordination of care. I performed an examination of the patient and discussed their management with the Nurse Practitioner. I have reviewed the Nurse Practitioner's notes and agree with the documented findings and plan of care)
--- NOTE | 2019-08-22 13:09 | US ---
EXAMINATION TYPE: US paracentesis abd w/image DATE OF EXAM: 08/22/2019 COMPARISON: NONE HISTORY: Ascites. PROCEDURE: Maximal barrier technique was utilized. The skin overlying a suitable pocket of fluid was localized with ultrasound and the overlying skin was prepped and draped. Ultrasound was utilized with sterile technique. Lidocaine was used for local anesthesia and a skin jenny made with a scalpel. Catheter was advanced under direct ultrasound guidance into a suitable pocket of fluid and approximately 4.5 liter s of serous fluid were removed. Catheter was withdrawn and hemostasis achieved. There is no immedia te complication; the patient is discharged in stable condition. IMPRESSION: STATUS POST ULTRASOUND GUIDED PARACENTESIS FOR PALLIATION OF ASCITES. THIS PROCEDURE WA S PERFORMED BY THE UNDERSIGNED.
[2019-08-22 17:11] LABS: Glucose,Whole Blood 154 mg/dL (75-99)
[2019-08-22 19:57] LABS: Glucose,Whole Blood 89 mg/dL (75-99)
[2019-08-22] MEDS: CIPROFLOXACIN HCL 250 MG TAB PO SCH (21:53)
[2019-08-23] MEDS: MORPHINE SULFATE 4 MG/ML SYRINGE IVP PRN ×3 (02:46→20:49)
[2019-08-23] MEDS: SODIUM CHLORIDE 0.9% 1,000 ML IV SCH ×4 (02:47→20:55)
[2019-08-23 05:38] VITALS: RESP 16
[2019-08-23 07:19] LABS: Glucose,Whole Blood 158 mg/dL (75-99)
[2019-08-23] MEDS: SUCRALFATE 1 GM TAB PO SCH ×4 (08:16→20:50)
[2019-08-23] MEDS: PANTOPRAZOLE 40 MG TABLET PO SCH (08:16)
[2019-08-23] MEDS: CHOLECALCIFEROL 1,000 UNIT TAB PO SCH (08:16)
[2019-08-23] MEDS: ISOSORBIDE MONONITRATE ER 30 MG TAB.ER.24H PO SCH (08:17)
[2019-08-23] MEDS: FUROSEMIDE 40 MG TAB PO SCH (08:17)
[2019-08-23] MEDS: MORPHINE SULFATE ER 15 MG TABLET PO SCH (08:17)
[2019-08-23] MEDS: FERROUS SULFATE 325 MG TAB PO SCH ×2 (08:17→20:50)
[2019-08-23] MEDS: DICYCLOMINE 20 MG TAB PO SCH ×4 (08:17→22:24)
[2019-08-23] MEDS: METOPROLOL TARTRATE 12.5 MG TAB PO SCH (08:17)
[2019-08-23] MEDS: RIFAXIMIN 550 MG TABLET PO SCH ×2 (08:18→20:49)
[2019-08-23] MEDS: LACTULOSE 20 GM/30 ML CUP PO SCH ×3 (08:18→22:25)
[2019-08-23] MEDS: buPROPion SR 150 MG TABLET.ER PO SCH ×2 (08:18→20:50)
[2019-08-23] MEDS: SPIRONOLACTONE 25 MG TAB PO SCH (08:18)
[2019-08-23] MEDS: INSULIN REGULAR 100 UNIT/ML VIAL SQ SCH ×3 (08:19→17:20)
[2019-08-23] MEDS: INSULIN NPH 300 UNIT/3 ML VIAL SQ SCH ×2 (08:19→20:50)
[2019-08-23] MEDS: CIPROFLOXACIN HCL 250 MG TAB PO SCH ×2 (08:19→20:50)
[2019-08-23 08:22] LABS: Calcium 7.4 mg/dL (8.4-10.2); Potassium 4.2 mmol/L (3.5-5.1); Total Bilirubin 1.5 mg/dL (0.2-1.3); Total Protein 5.2 g/dL (6.3-8.2)
[2019-08-23 10:03] LABS: HCT 36.8 % (34.0-46.0); HGB 11.1 gm/dL (11.4-16.0); Hypochromasia Slight; MCHC 30.1 g/dL (31.0-37.0); MCV 116.3 fL (80.0-100.0); Macrocytosis Marked; Mean Platelet Volume 9.3; RBC 3.17 m/uL (3.80-5.40); RDW 15.4 % (11.5-15.5); WBC 3.9 k/uL (3.8-10.6)
[2019-08-23 10:14] LABS: Platelet Count 79 k/uL (150-450)
--- NOTE | 2019-08-23 10:21 | P.DS ---
Providers Date of admission: 08/21/19 17:21 Expected date of discharge: 08/23/19 Attending physician: Artemio Lea Primary care physician: Gilma Martinez [facility] Course: Discharge diagnosis 1. Abdominal pain and fullness related to recurring abdominal ascites. Patient maintained on Lasix and Aldactone. Ultrasound-guided paracentesis completed 4.5 L. 2. History of nonalcoholic liver cirrhosis 3. History of hepatocellular carcinoma. Patient has been evaluated by oncology services multiple times. Patient has followed with oncologist out of [facility] previously 4. History of chronic kidney disease stage III 5. History of diverticulitis with ileostomy placement 6. Diabetes mellitus type 2 home dose of insulin reordered 7. History of elevated ammonia level related to hepatocellular carcinoma and nonalcoholic liver cirrhosis. Patient maintained on lactulose and Xifaxan. Ammonia level less than 9 8. History of urine colonization with VRE. UA showing moderate amount of leukocyte Estrace. Patient is asymptomatic at this time 9. History of depression 10. Recent EGD completed for abdominal pain and nausea on 08/07/2019 showing mild antral gastritis no evidence of esophagitis or peptic ulcer disease 11. 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 Urinary tract infection. Urine culture pending. Patient will be discharged on Cipro and follow-up with PCP for urine culture results Hospital course This is a 73-year-old female patient well known to my services. Patient presented to the ER with complaints of increased abdominal ascites and edema. Patient apparently went to her PCP yesterday and no concerns about patient's ammonia level being elevated due to patient not taking lactulose. Patient reports she does have abdominal discomfort and fullness. Patient does have a known past medical history of liver cancer, liver cirrhosis with previous paracentesis, anemia of chronic disease, depression, hypertension, diabetes mellitus type II and recent EGD for abdominal pain and nausea. Patient reports she has been taking her diuretics as scheduled. Ammonia level less than 9. Home meds resumed. Ultrasound-guided paracentesis has been ordered. At this time patient denies chest pain or shortness of breath. Patient denies nausea vomiting or diarrhea. Patient denies any urinary burning or frequency On 08/23/2019 patient alert and oriented 3. Patient had paracentesis yesterday. 4.5 L removed. Patient feels ready to be discharged home. UA showing moderate amount of leukocyte Estrace. Urine culture is pending. Patient will be discharged home on Cipro and advised to follow-up closely with her PCP along with outpatient paracentesis to prevent readmission. Patient verbalized understanding. At this time patient denies chest pain or shortness breath. Patient denies nausea vomiting or diarrhea. Patient denies any urinary burning or frequency I performed an examination of the patient and discussed their management with the Nurse Practitioner. I have reviewed the Nurse Practitioner's notes and agree with the documented findings and plan of care Patient Condition at Discharge: Stable Plan - Discharge Summary Discharge Rx Participant: No New Discharge Prescriptions: New Ciprofloxacin HCl [Cipro] 250 mg PO BID 7 Days #14 tab Continue Sucralfate [Carafate] 1 gm PO ACHS Omeprazole [PriLOSEC] 20 mg PO BID Insulin Regular, Human [NovoLIN R] 10 unit SQ AC-TID Cholecalciferol [Vitamin D3 (25 Mcg = 1000 Iu)] 4,000 unit PO DAILY Ferrous Sulfate [Iron (65 MG Elemental)] 325 mg PO BID Insulin NPH [humuLIN N] 18 unit SQ BID vial Morphine Sulfate [Ms Contin] 15 mg PO BID Ondansetron Odt [Zofran ODT] 8 mg SL DAILY PRN PRN Reason: Nausea Metoprolol Tartrate [Lopressor] 6.25 mg PO DAILY buPROPion HCL [Wellbutrin SR] 150 mg PO BID clonazePAM [KlonoPIN] 0.5 mg PO Q8HR PRN PRN Reason: Anxiety Lactulose [Cephulac] 30 gm PO TID Isosorbide Mononitrate ER [Imdur] 30 mg PO DAILY 30 Days #30 tab.er.24h Rifaximin [Xifaxan] 550 mg PO BID tablet Dicyclomine [Bentyl] 20 mg PO QID 30 Days #120 tab Spironolactone [Aldactone] 50 mg PO DAILY 30 Days #30 tab Furosemide [Lasix] 40 mg PO DAILY 30 Days #30 tablet Discharge Medication List Omeprazole [PriLOSEC] 20 mg PO BID 10/23/18 [History] Sucralfate [Carafate] 1 gm PO ACHS 10/23/18 [History] Insulin Regular, Human [NovoLIN R] 10 unit SQ AC-TID 10/24/18 [History] Cholecalciferol [Vitamin D3 (25 Mcg = 1000 Iu)] 4,000 unit PO DAILY 01/16/19 [History] Ferrous Sulfate [Iron (65 MG Elemental)] 325 mg PO BID 01/31/19 [History] Insulin NPH [humuLIN N] 18 unit SQ BID vial 02/06/19 [Rx] Morphine Sulfate [Ms Contin] 15 mg PO BID 05/15/19 [History] Metoprolol Tartrate [Lopressor] 6.25 mg PO DAILY 06/12/19 [History] Ondansetron Odt [Zofran ODT] 8 mg SL DAILY PRN 06/12/19 [History] buPROPion HCL [Wellbutrin SR] 150 mg PO BID 06/12/19 [History] clonazePAM [KlonoPIN] 0.5 mg PO Q8HR PRN 06/12/19 [History] Lactulose [Cephulac] 30 gm PO TID 07/22/19 [History] Dicyclomine [Bentyl] 20 mg PO QID 30 Days #120 tab 07/26/19 [Rx] Isosorbide Mononitrate ER [Imdur] 30 mg PO DAILY 30 Days #30 tab.er.24h 07/26/19 [Rx] Rifaximin [Xifaxan] 550 mg PO BID tablet 07/26/19 [Rx] Furosemide [Lasix] 40 mg PO DAILY 30 Days #30 tablet 08/07/19 [Rx] Spironolactone [Aldactone] 50 mg PO DAILY 30 Days #30 tab 08/07/19 [Rx] Ciprofloxacin HCl [Cipro] 250 mg PO BID 7 Days #14 tab 08/23/19 [Rx] Follow up Appointment(s)/Referral(s): Artemio Lea MD [STAFF PHYSICIAN] - 1 Week Activity/Diet/Wound Care/Special Instructions: Activity as tolerated Diet heart healthy Patient advised follow up with PCP for urine culture. Discharge Disposition: HOME SELF-CARE
[2019-08-23 10:57] LABS: Anisocytosis (M) Present; Basophils # (M) 0.04 k/uL (0-0.2); Eosinophils # (M) 0.04 k/uL (0-0.7); Lymphocytes # (M) 1.29 k/uL (1.0-4.8); Neutrophils % (M) 60 %; Nucleated Red Blood Cells 0 /100 WBC (0-0); Poikilocytosis (M) Present; Total Cells Counted 100
[2019-08-23 11:06] LABS: Glucose,Whole Blood 128 mg/dL (75-99)
[2019-08-23 16:55] LABS: Glucose,Whole Blood 84 mg/dL (75-99)
[2019-08-23 20:22] LABS: Glucose,Whole Blood 86 mg/dL (75-99)
[2019-08-24 01:57] LABS: Glucose,Whole Blood 86 mg/dL (75-99)
[2019-08-24] MEDS: MORPHINE SULFATE ER 15 MG TABLET PO SCH (02:17)
[2019-08-24 05:08] VITALS: BP 95/50; PULSE 62; TEMP 98.1
[2019-08-24 07:10] LABS: Glucose,Whole Blood 115 mg/dL (75-99)
[2019-08-24 07:52] LABS: Basophils % (A) 1 %; Eosinophils # (A) 0.3 k/uL (0-0.7); Eosinophils % (A) 8 %; HCT 32.9 % (34.0-46.0); HGB 10.2 gm/dL (11.4-16.0); Lymphocytes # (A) 0.8 k/uL (1.0-4.8); Lymphocytes % (A) 23 %; MCH 34.6 pg (25.0-35.0); MCHC 31.1 g/dL (31.0-37.0); MCV 111.5 fL (80.0-100.0); Macrocytosis Marked; Mean Platelet Volume 8.5; Monocytes # (A) 0.3 k/uL (0-1.0); Monocytes % (A) 9 %; Neutrophils # (A) 1.9 k/uL (1.3-7.7); Neutrophils % (A) 57 %; Platelet Count 68 k/uL (150-450); RBC 2.95 m/uL (3.80-5.40); RDW 15.4 % (11.5-15.5); WBC 3.3 k/uL (3.8-10.6)
[2019-08-24] MEDS: LACTULOSE 20 GM/30 ML CUP PO SCH (08:09)
[2019-08-24] MEDS: CHOLECALCIFEROL 1,000 UNIT TAB PO SCH (08:09)
[2019-08-24] MEDS: METOPROLOL TARTRATE 12.5 MG TAB PO SCH (08:09)
[2019-08-24] MEDS: CIPROFLOXACIN HCL 250 MG TAB PO SCH (08:11)
[2019-08-24] MEDS: ISOSORBIDE MONONITRATE ER 30 MG TAB.ER.24H PO SCH (08:11)
[2019-08-24] MEDS: buPROPion SR 150 MG TABLET.ER PO SCH (08:11)
[2019-08-24] MEDS: SUCRALFATE 1 GM TAB PO SCH (08:11)
[2019-08-24] MEDS: DICYCLOMINE 20 MG TAB PO SCH (08:11)
[2019-08-24] MEDS: PANTOPRAZOLE 40 MG TABLET PO SCH (08:11)
[2019-08-24] MEDS: RIFAXIMIN 550 MG TABLET PO SCH (08:11)
[2019-08-24] MEDS: SODIUM CHLORIDE 0.9% 1,000 ML IV SCH ×2 (08:11→08:13)
[2019-08-24] MEDS: SPIRONOLACTONE 25 MG TAB PO SCH (08:12)
[2019-08-24] MEDS: FERROUS SULFATE 325 MG TAB PO SCH (08:12)
[2019-08-24] MEDS: FUROSEMIDE 40 MG TAB PO SCH (08:12)
[2019-08-24] MEDS: INSULIN REGULAR 100 UNIT/ML VIAL SQ SCH (08:13)
[2019-08-24] MEDS: INSULIN NPH 300 UNIT/3 ML VIAL SQ SCH (08:13)
[2019-08-24 08:31] LABS: Albumin 1.9 g/dL (3.5-5.0); Calcium 7.2 mg/dL (8.4-10.2); Potassium 3.7 mmol/L (3.5-5.1); Total Bilirubin 1.2 mg/dL (0.2-1.3); Total Protein 4.9 g/dL (6.3-8.2)
--- NOTE | 2019-08-24 09:54 | P.PN ---
Subjective Progress Note Date: 08/24/19 This is a 73-year-old female patient well known to my services. Patient presented to the ER with complaints of increased abdominal ascites and edema. Patient apparently went to her PCP yesterday and no concerns about patient's ammonia level being elevated due to patient not taking lactulose. Patient re ports she does have abdominal discomfort and fullness. Patient does have a known past medical history of liver cancer, liver cirrhosis with previous paracentesis, anemia of chronic disease, depression, hypertension, diabetes mellitus type II and recent EGD for abdominal pain and nausea. Patient reports she has been taking her diuretics as scheduled. Ammonia level less than 9. Home meds resumed. Ultrasound-guided paracentesis has been ordered. At this time patient denies chest pain or shortness of breath. Patient denies nausea vomiting or diarrhea. Patient denies any urinary burning or frequency On 08/23/2019 patient alert and oriented 3. Patient had paracentesis yesterday. 4.5 L removed. Patient feels ready to be discharged home. UA showing moderate amount of leukocyte Estrace. Urine culture is pending. Patient will be discharged home on Cipro and advised to follow-up closely with her PCP along with outpatient paracentesis to prevent readmission. Patient verbalized understanding. At this time patient denies chest pain or shortness breath. Patient denies nausea vomiting or diarrhea. Patient denies any urinary burning or frequency On 08/24/2019 patient alert and oriented 3. Discharge was held up yesterday due to patient stating she had increased pain. Patient feels much improved today ready for discharge home. Urine culture negative. Patient advised the importance of close follow-up PCP consulting providers. Patient denies chest pain or shortness breath. Patient denies nausea vomiting diarrhea. Patient denies any burning or frequency. Objective - Vital Signs Vital signs: Vital Signs Temp 98.1 F 08/24/19 05:00 Pulse 62 08/24/19 05:00 Resp 16 08/24/19 05:00 BP 95/50 08/24/19 05:00 Pulse Ox 98 08/24/19 05:00 Intake & Output 08/23/19 08/24/19 08/24/19 18:59 06:59 18:59 Intake Total 1100 1010 Balance 1100 1010 Intake: Intake, IV Titration 500 420 Amount Sodium Chloride 0.9% 1, 500 420 000 ml @ 120 mls/hr IV . Q8H20M [facility] Rx#:[id number] Oral 600 590 Other: Voiding Method Toilet Toilet Toilet # Voids 2 2 - Exam Head normocephalic Neck supple Lungs clear to auscultation bilaterally no wheezing or crackles Heart regular rate and rhythm S1-S2, no rub or gallop Abdomen is soft nontender nondistended positive bowel sounds no hepatosplenomegaly. left lower quadrant ileostomy Extremities no edema Neuro alert and orientated to 3 - Labs CBC & Chem 7: 08/24/19 07:35 08/24/19 07:35 Labs: Abnormal Lab Results - Last 24 Hours (Table) 08/23/19 08/23/19 08/24/19 Range/Units 09:08 11:05 07:09 WBC (3.8-10.6) k/uL RBC 3.17 L (3.80-5.40) m/uL Hgb 11.1 L (11.4-16.0) gm/dL Hct (34.0-46.0) % MCV 116.3 H (80.0-100.0) fL MCHC 30.1 L (31.0-37.0) g/dL Plt Count 79 L (150-450) k/uL Macrocytosis Marked A Sodium (137-145) mmol/L Chloride (98-107) mmol/L Carbon Dioxide (22-30) mmol/L Glucose (74-99) mg/dL POC Glucose (mg/dL) 128 H 115 H (75-99) mg/dL Calcium (8.4-10.2) mg/dL AST (14-36) U/L Alkaline Phosphatase (38-126) U/L Ammonia (<30) umol/L Total Protein (6.3-8.2) g/dL Albumin (3.5-5.0) g/dL 08/24/19 08/24/19 08/24/19 Range/Units 07:35 07:35 07:35 WBC 3.3 L (3.8-10.6) k/uL RBC 2.95 L (3.80-5.40) m/uL Hgb 10.2 L (11.4-16.0) gm/dL Hct 32.9 L (34.0-46.0) % MCV 111.5 H (80.0-100.0) fL MCHC (31.0-37.0) g/dL Plt Count 68 L (150-450) k/uL Macrocytosis Marked A Sodium 135 L (137-145) mmol/L Chloride 111 H (98-107) mmol/L Carbon Dioxide 20 L (22-30) mmol/L Glucose 114 H (74-99) mg/dL POC Glucose (mg/dL) (75-99) mg/dL Calcium 7.2 L (8.4-10.2) mg/dL AST 43 H (14-36) U/L Alkaline Phosphatase 198 H (38-126) U/L Ammonia 38 H (<30) umol/L Total Protein 4.9 L (6.3-8.2) g/dL Albumin 1.9 L (3.5-5.0) g/dL Microbiology - Last 24 Hours (Table) 08/22/19 17:17 Urine Culture - Final Urine,Voided 08/21/19 13:40 Blood Culture - Preliminary Blood No Growth after 48 hours Assessment and Plan Assessment: 1. Abdominal pain and fullness related to recurring abdominal ascites. Ultrasound guided paracentesis has been ordered. Patient maintained on Lasix and Aldactone. Status post ultrasound guided paracentesis completed 4.5 L removed 2. History of nonalcoholic liver cirrhosis 3. History of hepatocellular carcinoma. Patient has been evaluated by oncology services multiple times. Patient has followed with oncologist out of [facility] previously 4. History of chronic kidney disease stage III 5. History of diverticulitis with ileostomy placement 6. Diabetes mellitus type 2 home dose of insulin reordered 7. History of elevated ammonia level related to hepatocellular carcinoma and nonalcoholic liver cirrhosis. Patient maintained on lactulose and Xifaxan. Ammonia level less than 9 8. History of urine colonization with VRE. UA showing moderate amount of leukocyte Estrace. Patient is asymptomatic at this time 9. History of depression 10. Recent EGD completed for abdominal pain and nausea on 08/07/2019 showing mild antral gastritis no evidence of esophagitis or peptic ulcer disease 11. 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 Urinary tract infection. Urine culture negative. Patient will be discharged on Cipro and advised follow-up PCP DVT prophylaxis SCDs due to thrombocytopenia. GI prophylaxis Pepcid I performed an examination of the patient and discussed their management with the Nurse Practitioner. I have reviewed the Nurse Practitioner's notes and agree with the documented findings and plan of care
[2019-08-24 10:00] LABS: Anisocytosis (M) Present; Poikilocytosis (M) Present
== END 2019-08-24 12:05 | disposition home or self-care (01) | DRG 436 ==
LOC: EC 11:39 → 3NMEDONC 17:21 → OBSVTOIN 08-23 13:04
PROVIDERS: ADMIT Internal Medicine; ATTEND Internal Medicine
PROC: 0W9G3ZZ Drainage of Peritoneal Cavity, Percutaneous Approach (ICD-10-PCS; principal; 2019-08-22)
DX: C22.0 Liver cell carcinoma (principal); R18.8 Other ascites; N39.0 Urinary tract infection, site not specified; K74.69 Other cirrhosis of liver; D63.8 Anemia in other chronic diseases classified elsewhere; D69.59 Other secondary thrombocytopenia; E11.22 Type 2 diabetes mellitus with diabetic chronic kidney disease; F32.9 Major depressive disorder, single episode, unspecified; F41.9 Anxiety disorder, unspecified; I12.9 Hypertensive chronic kidney disease with stage 1 through stage 4 chronic kidney disease, or unspecified chronic kidney disease; I25.2 Old myocardial infarction; T47.3X6A Underdosing of saline and osmotic laxatives, initial encounter; N18.3 Chronic kidney disease, stage 3 (moderate); Z79.4 Long term (current) use of insulin; Z79.899 Other long term (current) drug therapy; Z82.49 Family history of ischemic heart disease and other diseases of the circulatory system; Z87.11 Personal history of peptic ulcer disease; Z87.891 Personal history of nicotine dependence; Z90.710 Acquired absence of both cervix and uterus; Z91.128 Patient's intentional underdosing of medication regimen for other reason; Z90.49 Acquired absence of other specified parts of digestive tract; Z88.5 Allergy status to narcotic agent; Z88.0 Allergy status to penicillin; Z88.8 Allergy status to other drugs, medicaments and biological substances; Z93.2 Ileostomy status; Z86.14 Personal history of Methicillin resistant Staphylococcus aureus infection; Z87.440 Personal history of urinary (tract) infections; Z92.21 Personal history of antineoplastic chemotherapy
CPT/HCPCS: 36415; 49083; 76705; 80053; 81001; 82140; 83690; 85025; 85610; 85730; 87040; 87086; 96365; 99284

== ENCOUNTER 2019-10-01 11:36 | Inpatient (IN) | payer MEDICARE ==
[2019-10-01] MEDS ORDERED: SODIUM CHLORIDE 0.9% 1,000 ML IV STA ×2 (11:56)
[2019-10-01] MEDS ORDERED: MORPHINE SULFATE 4 MG/ML SYRINGE IVP STA (11:58)
--- NOTE | 2019-10-01 12:03 | ED ---
Weakness HPI - General Chief complaint: Weakness Stated complaint: Weakness Time Seen by Provider: 10/01/19 11:36 Source: patient, EMS, RN notes reviewed Mode of arrival: EMS Limitations: no limitations - History of Present Illness Initial comments: This is 74-year-old female was brought in by EMS for complaints of generalized weakness going on for about the last week or so. He states she's had nausea upper abdominal pain is nonspecific intermittent fevers and chills. She states her appetite has not been too bad but her urine comes on only a trickle. She feels very weak when she tries to get up and walk and move she also had no other complaints such as cough or phlegm production rhinorrhea or throat diarrhea. Does have a prior history of TIA hypertension and cirrhosis. No other modifying factors at this time MD Complaint: generalized weakness - Related Data Home Medications Medication Instructions Recorded Confirmed Omeprazole [PriLOSEC] 20 mg PO BID 10/23/18 08/21/19 Sucralfate [Carafate] 1 gm PO ACHS 10/23/18 08/21/19 Insulin Regular, Human [NovoLIN R] 10 unit SQ AC-TID 10/24/18 08/21/19 Cholecalciferol [Vitamin D3 (25 4,000 unit PO DAILY 01/16/19 08/21/19 Mcg = 1000 Iu)] Ferrous Sulfate [Iron (65 MG 325 mg PO BID 01/31/19 08/21/19 Elemental)] Morphine Sulfate [Ms Contin] 15 mg PO BID 05/15/19 08/21/19 Metoprolol Tartrate [Lopressor] 6.25 mg PO DAILY 06/12/19 08/21/19 Ondansetron Odt [Zofran ODT] 8 mg SL DAILY PRN 06/12/19 08/21/19 buPROPion HCL [Wellbutrin SR] 150 mg PO BID 06/12/19 08/21/19 clonazePAM [KlonoPIN] 0.5 mg PO Q8HR PRN 06/12/19 08/21/19 Lactulose [Cephulac] 30 gm PO TID 07/22/19 08/21/19 Previous Rx's Medication Instructions Recorded Insulin NPH [humuLIN N] 18 unit SQ BID vial 02/06/19 Dicyclomine [Bentyl] 20 mg PO QID 30 Days #120 tab 07/26/19 Isosorbide Mononitrate ER [Imdur] 30 mg PO DAILY 30 Days #30 07/26/19 tab.er.24h Rifaximin [Xifaxan] 550 mg PO BID tablet 07/26/19 Furosemide [Lasix] 40 mg PO DAILY 30 Days #30 tablet 08/07/19 Spironolactone [Aldactone] 50 mg PO DAILY 30 Days #30 tab 08/07/19 Ciprofloxacin HCl [Cipro] 250 mg PO BID 7 Days #14 tab 08/23/19 Allergies Allergy/AdvReac Type Severity Reaction Status Date / Time amlodipine Allergy Rash/Hives Verified 08/21/19 12:41 oxycodone Allergy Rash/Hives Verified 08/21/19 12:41 Penicillins Allergy Rash/Hives Verified 08/21/19 12:41 hydromorphone [From Dilaudid] AdvReac Mild tactile Verified 08/21/19 12:41 disturbance GREG Inhibitors AdvReac Cough Verified 08/21/19 12:41 sodium dodecyclbenzene Allergy Rash/Hives Uncoded 07/22/19 08:08 sulfonate Review of Systems ROS Statement: Those systems with pertinent positive or pertinent negative responses have been documented in the HPI. ROS Other: All systems not noted in ROS Statement are negative. Past Medical History Past Medical History: Cancer, Diabetes Mellitus, Hypertension, Liver Disease, Myocardial Infarction (ME), Renal Disease Additional Past Medical History / Comment(s): Hepatocellular liver cancer with chemo immobilization-last time being 2017, ascities with paracentesis's may 2019, nonalcoholic liver cirrhosis, chronic pancytopenia, chronic elevated ammonia levels, hepatic encephalopathy, chronic elevated LFTs, chronic abdominal pain, stomach ulcer, diverticular disease with ileostomy, IDDM type II, iron anemia, CKD stage III, nonsustained vtach, UTI, high ammonia levels Last Myocardial Infarction Date:: unk History of Any Multi-Drug Resistant Organisms: MRSA, VRE Date of last positivie culture/infection: 07/22/19- VRE; 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 Past Anesthesia/Blood Transfusion Reactions: No Reported Reaction Past Psychological History: Anxiety, Depression Smoking Status: Former smoker Past Alcohol Use History: None Reported Past Drug Use History: None Reported - Past Family History Mother History Unknown: Yes Family Medical History: Congestive Heart Failure (CHF) Additional Family Medical History / Comment(s): Mother is 94 yrs old. Father Family Medical History: Chest Pain / Angina Additional Family Medical History / Comment(s): Father is . General Exam - General Exam Comments Initial Comments: This is a well-developed well-nourished awake alert oriented 3 female Limitations: no limitations General appearance: alert, in no apparent distress Head exam: Present: atraumatic, normocephalic, normal inspection Eye exam: Present: normal appearance, PERRL, EOMI. Absent: scleral icterus, conjunctival injection, periorbital swelling ENT exam: Present: mucous membranes dry Neck exam: Present: normal inspection. Absent: tenderness, meningismus, lymphadenopathy Respiratory exam: Present: normal lung sounds bilaterally. Absent: respiratory distress, wheezes, rales, rhonchi, stridor Cardiovascular Exam: Present: regular rate, normal rhythm, normal heart sounds. Absent: systolic murmur, diastolic murmur, rubs, gallop, clicks GI/Abdominal exam: Present: soft, tenderness (Upper abdominal tenderness palpation no guarding rebound masses or bruits), normal bowel sounds. Absent: distended, guarding, rebound, rigid Rectal exam: Present: deferred Extremities exam: Present: normal inspection, full ROM, normal capillary refill. Absent: tenderness, pedal edema, joint swelling, calf tenderness Back exam: Present: normal inspection Neurological exam: Present: alert, oriented X3, CN II-XII intact Psychiatric exam: Present: normal affect, normal mood Skin exam: Present: warm, dry, intact, normal color. Absent: rash Course Vital Signs 10/01/19 10/01/19 11:42 13:24 Temperature 98.1 F Pulse Rate 81 69 Respiratory 18 18 Rate Blood Pressure 133/75 111/55 O2 Sat by Pulse 96 99 Oximetry EKG Findings - EKG Comments: EKG Findings:: EKG shows sinus rhythm frequent PVCs rate 74. Ago 150 QRS 124 QT/QTC 446/495 left exodeviation right bundle-branch block moderate voltage criteria for LVH. - EKG Results: EKG: interpreted by ERMD Medical Decision Making - Medical Decision Making Patient still feels tired and weak I did discuss the case with Dr. Webb the patient be admitted for IV fluids and evaluation - Lab Data Result diagrams: 10/01/19 12:00 10/01/19 12:00 Lab Results 10/01/19 10/01/19 10/01/19 Range/Units 12:00 12:00 12:00 WBC 4.3 (3.8-10.6) k/uL RBC 3.88 (3.80-5.40) m/uL Hgb 13.5 D (11.4-16.0) gm/dL Hct 41.8 (34.0-46.0) % MCV 107.6 H (80.0-100.0) fL MCH 34.8 (25.0-35.0) pg MCHC 32.3 (31.0-37.0) g/dL RDW 14.2 (11.5-15.5) % Plt Count 77 L (150-450) k/uL Neutrophils % 69 % Lymphocytes % 18 % Monocytes % 6 % Eosinophils % 5 % Basophils % 1 % Neutrophils # 2.9 (1.3-7.7) k/uL Lymphocytes # 0.8 L (1.0-4.8) k/uL Monocytes # 0.3 (0-1.0) k/uL Eosinophils # 0.2 (0-0.7) k/uL Basophils # 0.0 (0-0.2) k/uL Macrocytosis Moderate Sodium 140 (137-145) mmol/L Potassium 4.2 (3.5-5.1) mmol/L Chloride 113 H (98-107) mmol/L Carbon Dioxide 19 L (22-30) mmol/L Anion Gap 8 mmol/L BUN 17 (7-17) mg/dL Creatinine 1.09 H (0.52-1.04) mg/dL Est GFR (CKD-EPI)AfAm 59 (>60 ml/min/1.73 sqM) Est GFR (CKD-EPI)NonAf 51 (>60 ml/min/1.73 sqM) Glucose 121 H (74-99) mg/dL Plasma Lactic Acid Carlos (0.7-2.0) mmol/L Calcium 9.3 (8.4-10.2) mg/dL Magnesium 1.8 (1.6-2.3) mg/dL Total Bilirubin 3.2 H (0.2-1.3) mg/dL AST 62 H (14-36) U/L ALT 49 (9-52) U/L Alkaline Phosphatase 288 H (38-126) U/L Creatine Kinase 105 (30-135) U/L Total Protein 7.5 (6.3-8.2) g/dL Albumin 3.1 L (3.5-5.0) g/dL Lipase 28 (23-300) U/L Urine Color Yellow Urine Appearance Cloudy H (Clear) Urine pH 5.0 (5.0-8.0) Ur Specific [place] 1.014 (1.001-1.035) Urine Protein Negative (Negative) Urine Glucose (UA) Negative (Negative) Urine Ketones Negative (Negative) Urine Blood Negative (Negative) Urine Nitrite Negative (Negative) Urine Bilirubin Negative (Negative) Urine Urobilinogen <2.0 (<2.0) mg/dL Ur Leukocyte Esterase Small H (Negative) Urine RBC 1 (0-5) /hpf Urine WBC 3 (0-5) /hpf Ur Squamous Epith Cells 3 (0-4) /hpf Urine Bacteria Many H (None) /hpf Hyaline Casts 7 H (0-2) /lpf Urine Mucus Rare H (None) /hpf 10/01/19 Range/Units 12:00 WBC (3.8-10.6) k/uL RBC (3.80-5.40) m/uL Hgb (11.4-16.0) gm/dL Hct (34.0-46.0) % MCV (80.0-100.0) fL MCH (25.0-35.0) pg MCHC (31.0-37.0) g/dL RDW (11.5-15.5) % Plt Count (150-450) k/uL Neutrophils % % Lymphocytes % % Monocytes % % Eosinophils % % Basophils % % Neutrophils # (1.3-7.7) k/uL Lymphocytes # (1.0-4.8) k/uL Monocytes # (0-1.0) k/uL Eosinophils # (0-0.7) k/uL Basophils # (0-0.2) k/uL Macrocytosis Sodium (137-145) mmol/L Potassium (3.5-5.1) mmol/L Chloride (98-107) mmol/L Carbon Dioxide (22-30) mmol/L Anion Gap mmol/L BUN (7-17) mg/dL Creatinine (0.52-1.04) mg/dL Est GFR (CKD-EPI)AfAm (>60 ml/min/1.73 sqM) Est GFR (CKD-EPI)NonAf (>60 ml/min/1.73 sqM) Glucose (74-99) mg/dL Plasma Lactic Acid Carlos 1.8 (0.7-2.0) mmol/L Calcium (8.4-10.2) mg/dL Magnesium (1.6-2.3) mg/dL Total Bilirubin (0.2-1.3) mg/dL AST (14-36) U/L ALT (9-52) U/L Alkaline Phosphatase (38-126) U/L Creatine Kinase (30-135) U/L Total Protein (6.3-8.2) g/dL Albumin (3.5-5.0) g/dL Lipase (23-300) U/L Urine Color Urine Appearance (Clear) Urine pH (5.0-8.0) Ur Specific [place] (1.001-1.035) Urine Protein (Negative) Urine Glucose (UA) (Negative) Urine Ketones (Negative) Urine Blood (Negative) Urine Nitrite (Negative) Urine Bilirubin (Negative) Urine Urobilinogen (<2.0) mg/dL Ur Leukocyte Esterase (Negative) Urine RBC (0-5) /hpf Urine WBC (0-5) /hpf Ur Squamous Epith Cells (0-4) /hpf Urine Bacteria (None) /hpf Hyaline Casts (0-2) /lpf Urine Mucus (None) /hpf - Radiology Data Radiology results: report reviewed (I did review the imaging and report no acute findings.), image reviewed Disposition Clinical Impression: Dehydration, Abdominal pain, Failure to thrive in adult, Elevated bilirubin Disposition: ADMITTED IP TO THIS [facility] Condition: Fair Referrals: Artemio Lea MD [Primary Care Provider] - 1-2 days
[2019-10-01 12:28] LABS: Basophils % (A) 1 %; Eosinophils # (A) 0.2 k/uL (0-0.7); Eosinophils % (A) 5 %; HCT 41.8 % (34.0-46.0); Lymphocytes # (A) 0.8 k/uL (1.0-4.8); Lymphocytes % (A) 18 %; MCH 34.8 pg (25.0-35.0); MCHC 32.3 g/dL (31.0-37.0); MCV 107.6 fL (80.0-100.0); Macrocytosis Moderate; Mean Platelet Volume 8.9; Monocytes # (A) 0.3 k/uL (0-1.0); Monocytes % (A) 6 %; Neutrophils # (A) 2.9 k/uL (1.3-7.7); Neutrophils % (A) 69 %; RBC 3.88 m/uL (3.80-5.40); RDW 14.2 % (11.5-15.5); WBC 4.3 k/uL (3.8-10.6)
--- NOTE | 2019-10-01 12:32 | XR ---
EXAMINATION TYPE: XR KUB , 2 VIEWS DATE OF EXAM ORDERED: 10/01/2019 HISTORY: Abdominal pain with weakness. COMPARISON: Previous study dated 07/29/2019. FINDINGS: Surgical clips in the right upper quadrant. The abdominal gas pattern is normal. There is no evidence of obstruction or free air. There are phleb oliths in the right hemipelvis. There are degenerative changes in the joints and lumbar spine. There is a rounded 9 mm calcification projecting just medial to the right iliac wing. This is unchanged fro m previous. IMPRESSION: 1. NO DEFINITE ACUTE INTRA-ABDOMINAL ABNORMALITY. 2. STABLE 8 MM CALCULUS IN THE RIGHT LOWER QUADRANT.
--- NOTE | 2019-10-01 12:34 | XR ---
EXAMINATION TYPE: XR chest 2V DATE OF EXAM: 10/01/2019 HISTORY: Weakness with cough. REFERENCE: Previous study dated 08/03/2019. FINDINGS: The lungs remain clear. The heart is not enlarged. Pleural spaces are clear. IMPRESSION: NO ACUTE INTRATHORACIC ABNORMALITY.
[2019-10-01 12:35] LABS: HGB 13.5 gm/dL (11.4-16.0)
[2019-10-01 12:36] LABS: Albumin 3.1 g/dL (3.5-5.0); Calcium 9.3 mg/dL (8.4-10.2); Magnesium 1.8 mg/dL (1.6-2.3); Platelet Count 77 k/uL (150-450); Potassium 4.2 mmol/L (3.5-5.1); Total Bilirubin 3.2 mg/dL (0.2-1.3); Total Protein 7.5 g/dL (6.3-8.2)
[2019-10-01 12:49] LABS: Appearance,Urine Cloudy (Clear); Bacteria,Urine Many /hpf; Bilirubin,Urine Negative (Negative); Blood,Urine Negative (Negative); Color,Urine Yellow; Glucose,Urine (UA) Negative (Negative); Hyaline Casts,Urine 7 /lpf (0-2); Ketones,Urine Negative (Negative); Leukocyte Esterase,Urine Small (Negative); Mucus,Urine Rare /hpf; Nitrite,Urine Negative (Negative); Protein,Urine Negative (Negative); RBC,Urine 1 /hpf (0-5); Specific Gravity,Urine 1.014 (1.001-1.035); Squamous Epithelial Cell,Urine 3 /hpf (0-4); Urobilinogen,Urine <2.0 mg/dL (<2.0)
[2019-10-01] MEDS ORDERED: NALOXONE 0.4 MG/ML 1 ML VIAL IV PRN (14:21)
[2019-10-01] MEDS ORDERED: ONDANSETRON ODT 8 MG TAB.RAPDIS PO PRN (14:24)
[2019-10-01] MEDS ORDERED: clonazePAM 0.5 MG TAB PO PRN (14:24)
[2019-10-01] MEDS: INSULIN ASPART (NovoLOG) 100 UNIT/ML VIAL SQ SCH ×2 (17:06→21:44)
[2019-10-01] MEDS: PANTOPRAZOLE 40 MG TABLET PO SCH (17:10)
[2019-10-01] MEDS: LACTULOSE 20 GM/30 ML CUP PO SCH ×2 (17:10→20:42)
[2019-10-01] MEDS: SUCRALFATE 1 GM TAB PO SCH ×2 (17:10→20:39)
[2019-10-01] MEDS: DICYCLOMINE 20 MG TAB PO SCH ×2 (17:10→21:47)
[2019-10-01] MEDS: MORPHINE SULFATE 2 MG/ML SYRINGE IVP PRN ×2 (17:10→21:52)
[2019-10-01] MEDS: ONDANSETRON 4 MG/2 ML VIAL IVP PRN (17:11)
[2019-10-01 17:18] LABS: Glucose,Whole Blood 85 mg/dL (75-99)
[2019-10-01] MEDS: FERROUS SULFATE 325 MG TAB PO SCH (20:39)
[2019-10-01] MEDS: RIFAXIMIN 550 MG TABLET PO SCH (20:40)
[2019-10-01] MEDS: buPROPion SR 150 MG TABLET.ER PO SCH (20:40)
[2019-10-01] MEDS: MORPHINE SULFATE ER 15 MG TABLET PO SCH (20:40)
[2019-10-01 21:43] LABS: Glucose,Whole Blood 223 mg/dL (75-99)
[2019-10-01] MEDS: INSULIN NPH 300 UNIT/3 ML VIAL SQ SCH (21:44)
[2019-10-02 07:07] LABS: Glucose,Whole Blood 68 mg/dL (75-99)
[2019-10-02 07:25] LABS: Glucose,Whole Blood 86 mg/dL (75-99)
[2019-10-02] MEDS: INSULIN ASPART (NovoLOG) 100 UNIT/ML VIAL SQ SCH ×4 (08:06→21:24)
[2019-10-02] MEDS: INSULIN NPH 300 UNIT/3 ML VIAL SQ SCH ×2 (08:21→21:24)
[2019-10-02] MEDS: ISOSORBIDE MONONITRATE ER 30 MG TAB.ER.24H PO SCH (08:21)
[2019-10-02] MEDS: METOPROLOL TARTRATE 12.5 MG TAB PO SCH (08:22)
[2019-10-02] MEDS: MORPHINE SULFATE ER 15 MG TABLET PO SCH ×2 (08:23→21:30)
[2019-10-02] MEDS: LACTULOSE 20 GM/30 ML CUP PO SCH ×4 (08:23→21:49)
[2019-10-02] MEDS: FERROUS SULFATE 325 MG TAB PO SCH ×2 (08:23→21:14)
[2019-10-02] MEDS: SUCRALFATE 1 GM TAB PO SCH ×4 (08:24→21:14)
[2019-10-02] MEDS: DICYCLOMINE 20 MG TAB PO SCH ×4 (08:24→21:14)
[2019-10-02] MEDS: RIFAXIMIN 550 MG TABLET PO SCH ×2 (08:24→21:14)
[2019-10-02] MEDS: CHOLECALCIFEROL 1,000 UNIT TAB PO SCH (08:24)
[2019-10-02] MEDS: SPIRONOLACTONE 25 MG TAB PO SCH (08:24)
[2019-10-02] MEDS: buPROPion SR 150 MG TABLET.ER PO SCH ×2 (08:24→21:14)
[2019-10-02] MEDS: PANTOPRAZOLE 40 MG TABLET PO SCH ×2 (08:24→17:37)
[2019-10-02] MEDS: FUROSEMIDE 40 MG TAB PO SCH (08:24)
[2019-10-02 10:32] LABS: Albumin 2.6 g/dL (3.5-5.0); Calcium 8.4 mg/dL (8.4-10.2); Potassium 4.3 mmol/L (3.5-5.1); Total Bilirubin 2.6 mg/dL (0.2-1.3); Total Protein 6.4 g/dL (6.3-8.2)
[2019-10-02 10:56] LABS: Basophils % (A) 0 %; Eosinophils # (A) 0.3 k/uL (0-0.7); Eosinophils % (A) 8 %; HCT 36.6 % (34.0-46.0); HGB 12.2 gm/dL (11.4-16.0); Lymphocytes # (A) 1.1 k/uL (1.0-4.8); Lymphocytes % (A) 24 %; MCH 36.3 pg (25.0-35.0); MCHC 33.4 g/dL (31.0-37.0); MCV 108.7 fL (80.0-100.0); Macrocytosis Marked; Mean Platelet Volume 8.3; Monocytes # (A) 0.3 k/uL (0-1.0); Monocytes % (A) 7 %; Neutrophils # (A) 2.5 k/uL (1.3-7.7); Neutrophils % (A) 58 %; RBC 3.37 m/uL (3.80-5.40); RDW 14.3 % (11.5-15.5); WBC 4.3 k/uL (3.8-10.6)
[2019-10-02 11:03] LABS: Platelet Count 74 k/uL (150-450)
--- NOTE | 2019-10-02 11:03 | P.HPIM ---
History of Present Illness H&P Date: 10/02/19 Chief Complaint: increase weakness abdominal pain This is a 74-year-old female patient well-known to my services who presented with complaints of generalized weakness has been increasing over the past week. Patient also complains of nausea and generalized upper abdominal discomfort. Patient denies any fever or chills.vision in the past medical history of hepatocellular liver cancer with chemo immobilization in 2018, chronic ascites, nonalcoholic liver cirrhosis, diabetes mellitus, hypertension, liver disease, myocardial infarction, chronic renal disease, chronic abdominal pain, diverticular disease with ileostomy, MRSA and VRE. KUB x-ray completed showing no definitive acute intra-abdominal abnormality. Stable 8mm calculus in the right lower quadrant. Chest x-ray completed showing no acute intrathoracic abnormality. given 1 L of fluid started on normal saline at 100. Blood and urine cultures ordered. At this time patient feels slightly improved. Patient denies chest pain or shortness breath. Patient denies nausea vomiting or diarrhea. Patient denies any urinary burning or frequency Review of Systems please refer to HPI otherwise unremarkable Past Medical History Past Medical History: Cancer, Diabetes Mellitus, Hypertension, Liver Disease, Myocardial Infarction ([place]), Renal Disease Additional Past Medical History / Comment(s): Hepatocellular liver cancer with chemo immobilization-last time being 2017, ascities with paracentesis's may 2019, nonalcoholic liver cirrhosis, chronic pancytopenia, chronic elevated ammonia levels, hepatic encephalopathy, chronic elevated LFTs, chronic abdominal pain, stomach ulcer, diverticular disease with ileostomy, IDDM type II, iron anemia, CKD stage III, nonsustained vtach, UTI, high ammonia levels Last Myocardial Infarction Date:: unk History of Any Multi-Drug Resistant Organisms: MRSA, VRE Date of last positivie culture/infection: 07/22/19- VRE; 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 Past Anesthesia/Blood Transfusion Reactions: No Reported Reaction Past Psychological History: Anxiety, Depression Additional Psychological History / Comment(s): Reformed smoker. . Retired. No experience. No animal exposures Smoking Status: Former smoker Past Alcohol Use History: None Reported Additional Past Alcohol Use History / Comment(s): started smoking 1962 and quit 1965 Past Drug Use History: None Reported - Past Family History Mother History Unknown: Yes Family Medical History: Congestive Heart Failure (CHF) Additional Family Medical History / Comment(s): Mother is 94 yrs old. Father Family Medical History: Chest Pain / Angina Additional Family Medical History / Comment(s): Father is . Medications and Allergies Home Medications Medication Instructions Recorded Confirmed Type Omeprazole [PriLOSEC] 20 mg PO DAILY 10/23/18 10/02/19 History Sucralfate [Carafate] 1 gm PO ACHS 10/23/18 10/01/19 History Insulin Regular, Human [NovoLIN R] 10 unit SQ AC-TID 10/24/18 10/01/19 History Cholecalciferol [Vitamin D3 (25 2,000 unit PO DAILY 01/16/19 10/02/19 History Mcg = 1000 Iu)] Ferrous Sulfate [Iron (65 MG 325 mg PO BID 01/31/19 10/01/19 History Elemental)] Morphine Sulfate [Ms Contin] 15 mg PO BID 05/15/19 10/01/19 History Ondansetron Odt [Zofran ODT] 8 mg SL DAILY PRN 06/12/19 10/01/19 History buPROPion HCL [Wellbutrin SR] 150 mg PO DAILY 06/12/19 10/02/19 History clonazePAM [KlonoPIN] 0.5 mg PO BID PRN 06/12/19 10/01/19 History Lactulose [Cephulac] 30 gm PO TID 07/22/19 10/01/19 History Isosorbide Mononitrate ER [Imdur] 30 mg PO DAILY 30 Days #30 07/26/19 10/01/19 Rx tab.er.24h Furosemide [Lasix] 40 mg PO DAILY 30 Days #30 tablet 08/07/19 10/01/19 Rx Spironolactone [Aldactone] 50 mg PO DAILY 30 Days #30 tab 08/07/19 10/01/19 Rx Dicyclomine [Bentyl] 10 mg PO DAILY 10/02/19 10/02/19 History Insulin NPH Human Isophane 18 unit SQ AC-BID 10/02/19 10/02/19 History [NovoLIN N] Allergies Allergy/AdvReac Type Severity Reaction Status Date / Time amlodipine Allergy Rash/Hives Verified 10/01/19 15:08 oxycodone Allergy Rash/Hives Verified 10/01/19 15:08 Penicillins Allergy Rash/Hives Verified 10/01/19 15:08 hydromorphone [From Dilaudid] AdvReac Mild tactile Verified 10/01/19 15:08 disturbance GREG Inhibitors AdvReac Cough Verified 10/01/19 15:08 sodium dodecyclbenzene Allergy Rash/Hives Uncoded 07/22/19 08:08 sulfonate Physical Exam Vitals: Vital Signs Temp Pulse Pulse Resp BP BP Pulse Ox 10/02/19 07:00 98.0 F 74 16 94/57 98 10/01/19 23:45 98.5 F 68 20 104/53 97 10/01/19 17:31 97.8 F 73 16 130/63 100 10/01/19 15:01 79 18 112/67 100 10/01/19 13:24 69 18 111/55 99 10/01/19 11:42 98.1 F 81 18 133/75 96 Intake and Output 10/01/19 10/02/19 10/02/19 22:59 06:59 14:59 Output Total 2 Balance -2 Output: Urine 2 Other: Voiding Method Toilet # Voids 2 # Bowel Movements 4 Head normocephalic Neck supple Lungs clear to auscultation bilaterally no wheezing or crackles Heart regular rate and rhythm S1-S2, no rub or gallop Abdomen is soft nontender, positive bowel sounds. Right lower quadrant ileostomy in place Extremities no edema Neuro alert and orientated to 3 Results CBC & Chem 7: 10/01/19 12:00 10/02/19 09:53 Labs: Abnormal Lab Results - Last 24 Hours (Table) 10/01/19 10/01/19 10/01/19 Range/Units 12:00 12:00 12:00 MCV 107.6 H (80.0-100.0) fL Plt Count 77 L (150-450) k/uL Lymphocytes # 0.8 L (1.0-4.8) k/uL Sodium (137-145) mmol/L Chloride 113 H (98-107) mmol/L Carbon Dioxide 19 L (22-30) mmol/L Creatinine 1.09 H (0.52-1.04) mg/dL Glucose 121 H (74-99) mg/dL POC Glucose (mg/dL) (75-99) mg/dL Total Bilirubin 3.2 H (0.2-1.3) mg/dL AST 62 H (14-36) U/L Alkaline Phosphatase 288 H (38-126) U/L Albumin 3.1 L (3.5-5.0) g/dL Urine Appearance Cloudy H (Clear) Ur Leukocyte Esterase Small H (Negative) Urine Bacteria Many H (None) /hpf Hyaline Casts 7 H (0-2) /lpf Urine Mucus Rare H (None) /hpf 10/01/19 10/02/19 10/02/19 Range/Units 21:42 07:05 09:53 MCV (80.0-100.0) fL Plt Count (150-450) k/uL Lymphocytes # (1.0-4.8) k/uL Sodium 136 L (137-145) mmol/L Chloride 112 H (98-107) mmol/L Carbon Dioxide 17 L (22-30) mmol/L Creatinine 1.15 H (0.52-1.04) mg/dL Glucose 216 H (74-99) mg/dL POC Glucose (mg/dL) 223 H 68 L (75-99) mg/dL Total Bilirubin 2.6 H (0.2-1.3) mg/dL AST 75 H (14-36) U/L Alkaline Phosphatase 215 H (38-126) U/L Albumin 2.6 L (3.5-5.0) g/dL Urine Appearance (Clear) Ur Leukocyte Esterase (Negative) Urine Bacteria (None) /hpf Hyaline Casts (0-2) /lpf Urine Mucus (None) /hpf Thrombosis Risk Factor Assmnt - Choose All That Apply Each Risk Factor Represents 2 Points: Age 61-74 years Thrombosis Risk Factor Assessment Total Risk Factor Score: 2 Thrombosis Risk Factor Assessment Level: Low Risk Assessment and Plan Assessment: 1. Abdominal pain with decreased appetite. KUB x-ray completed showing no definitive interval acute intra-abdominal abnormality stable 8mm calculus in the right lower quadrant. Lipase 28 2. Generalized weakness likely secondary to dehydration. Urine and blood cultures ordered. Continue fluids at 100 . PT/OT consulted 3. History of nonalcoholic liver cirrhosis 4. History of chronic kidney disease stage III 5. History of hepatocellular carcinoma. 6. History of diverticulitis with ileostomy placement 7. Diabetes mellitus type 2. Patient started on sliding scale coverage. Home meds held 8. Chronic elevated ammonia level secondary to Hepatocellular carcinoma non- alcoholic liver cirrhosis. Patient maintained on lactulose and Xifaxan. ammonia levels ordered 9. History of urine colonization with VRE 10. History of depression 11. Thrombocytopenia secondary to known hepatocellular carcinoma and liver cirrhosis 12. Recurring abdominal ascites. DVT prophylaxis SCDs due to thrombocytopenia. GI prophylaxis Protonix Time with Patient: Greater than 30 (Greater than 60% of the total time spent in counseling and coordination of care. I performed an examination of the patient and discussed their management with the Nurse Practitioner. I have reviewed the Nurse Practitioner's notes and agree with the documented findings and plan of care)
[2019-10-02 11:28] LABS: Glucose,Whole Blood 237 mg/dL (75-99)
[2019-10-02] MEDS: MORPHINE SULFATE 2 MG/ML SYRINGE IVP PRN ×2 (13:12→21:08)
[2019-10-02 16:49] LABS: Glucose,Whole Blood 165 mg/dL (75-99)
--- NOTE | 2019-10-02 18:25 | CONS ---
CONSULTATION DATE OF DICTATION: 10/02/2019 REASON FOR CONSULTATION: Epigastric pain, nausea, vomiting. HISTORY OF PRESENT ILLNESS: The patient is a 74-year-old pleasant white female with history of cirrhosis of the liver secondary to nonalcoholic fatty liver disease complicated by hepatocellular carcinoma, for which she follows at [facility] and underwent chemoembolization in the early part of this year. She came to the hospital because of fatigue, weakness, not feeling well, epigastric pain on and off for the last few days' duration. The patient had a similar hospitalization in September of this year. She was seen by me and underwent an upper endoscopy that showed evidence of mild gastritis. She has been maintained on Protonix 40 mg daily since then. She denies any bleeding. She did have a colostomy from prior complicated diverticular disease, for which she underwent ileostomy. She reports no fever, chills or night sweats. PAST MEDICAL HISTORY: Her past medical history is significant for: 1. Diabetes mellitus. 2. Hypertension. 3. 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 4. History of coronary artery disease, status post MA in the past. 5. Chronic kidney disease. PAST SURGICAL HISTORY: 1. EGD in July of 2019 that showed gastritis. 2. History of diverticulitis with ileostomy. 3. Right shoulder surgery. 4. Chemoembolization for hepatocellular carcinoma in the early part of this year at [facility]. MEDICATIONS: Medications at home include: 1. Prilosec. 2. Carafate. 3. Novolin. 4. Vitamin D3. 5. Iron sulfate. 6. Zofran. 7. MS Contin. 8. Klonopin. 9. Cephulac. 10.Imdur. 11.Lasix. 12.Aldactone. 13.Bentyl. ALLERGIES: 1. AMLODIPINE. 2. OXYCODONE. 3. PENICILLIN. 4. DILAUDID. 5. GREG INHIBITORS. SOCIAL HISTORY: No smoking. No alcohol use. FAMILY HISTORY: Mother had congestive heart failure. Father is from coronary artery disease. REVIEW OF SYSTEMS: CARDIOPULMONARY: No chest pain or shortness of breath. GENITOURINARY: No dysuria or hematuria. MUSCULOSKELETAL: Unremarkable. SKIN: Unremarkable. ENDOCRINE: Unremarkable. PSYCHIATRIC: Unremarkable. NEUROLOGY: Unremarkable. ENT/VISION: Unremarkable. CONSTITUTIONAL: No recent weight loss. No fever, chills, night sweats. PHYSICAL EXAMINATION: Blood pressure 100/64, pulse rate 60, temperature 98.3. HEENT examination unremarkable. Conjunctivae pink. Sclerae anicteric. Oral cavity no lesions. NECK: No JVD or lymph node enlargement. CHEST: Clear to auscultation. HEART: Regular rate and rhythm. ABDOMEN: Soft. Bowel sounds are positive. No organomegaly. Mild tenderness in the epigastric area. Ileostomy bag noted with brown stool. EXTREMITIES: No pedal edema. SKIN: No rashes. NEUROLOGIC: Alert and oriented x3. No focal deficits. LABS: WBC 4.3, hemoglobin 12.2, platelets 74,000. Basic metabolic panel: BUN , creatinine 1.15. T-bilirubin 2.6, AST 75, ALT 45, alkaline phosphatase 215. IMPRESSION: 1. 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 2. Hepatocellular carcinoma diagnosed in the early part of this year, status post chemoembolization at [facility] and now remains stable. 3. Epigastric pain associated with intermittent nausea, vomiting, status post EGD in July of 2019 that showed mild gastritis, presently on Prilosec and Carafate. 4. Generalized fatigue, weakness. 5. Chronic kidney disease. 6. Diabetes mellitus. 7. Hypertension. RECOMMENDATIONS: 1. Continue with Protonix 40 mg daily. 2. Continue with Carafate 1 gram 4 times daily. 3. No plans for any endoscopic intervention at the present time. 4. Continue with lactulose and Xifaxan. 5. Will follow with you closely during her hospital stay. Thank you for this consultation. MMODL / IJN: [id number] /
[2019-10-02 20:47] LABS: Glucose,Whole Blood 155 mg/dL (75-99)
[2019-10-03] MEDS: MORPHINE SULFATE ER 15 MG TABLET PO SCH ×3 (00:55→20:29)
[2019-10-03] MEDS: INSULIN NPH 300 UNIT/3 ML VIAL SQ SCH ×2 (01:20→07:47)
[2019-10-03 04:30] LABS: Glucose,Whole Blood 133 mg/dL (75-99)
[2019-10-03 07:05] LABS: Glucose,Whole Blood 155 mg/dL (75-99)
[2019-10-03] MEDS: LACTULOSE 20 GM/30 ML CUP PO SCH ×3 (07:37→22:44)
[2019-10-03] MEDS: ISOSORBIDE MONONITRATE ER 30 MG TAB.ER.24H PO SCH (07:38)
[2019-10-03] MEDS: DICYCLOMINE 20 MG TAB PO SCH ×4 (07:38→22:45)
[2019-10-03] MEDS: CHOLECALCIFEROL 1,000 UNIT TAB PO SCH (07:38)
[2019-10-03] MEDS: SPIRONOLACTONE 25 MG TAB PO SCH (07:38)
[2019-10-03] MEDS: METOPROLOL TARTRATE 12.5 MG TAB PO SCH (07:38)
[2019-10-03] MEDS: FERROUS SULFATE 325 MG TAB PO SCH ×2 (07:40→20:31)
[2019-10-03] MEDS: PANTOPRAZOLE 40 MG TABLET PO SCH ×2 (07:40→17:20)
[2019-10-03] MEDS: FUROSEMIDE 40 MG TAB PO SCH (07:40)
[2019-10-03] MEDS: SUCRALFATE 1 GM TAB PO SCH ×4 (07:40→20:30)
[2019-10-03] MEDS: INSULIN ASPART (NovoLOG) 100 UNIT/ML VIAL SQ SCH ×4 (07:40→22:15)
[2019-10-03] MEDS: buPROPion SR 150 MG TABLET.ER PO SCH ×2 (07:48→20:30)
[2019-10-03] MEDS: RIFAXIMIN 550 MG TABLET PO SCH ×2 (07:48→20:31)
[2019-10-03] MEDS ORDERED: CIPROFLOXACIN HCL 250 MG TAB PO SCH (09:00)
[2019-10-03 09:16] LABS: Potassium 4.3 mmol/L (3.5-5.1)
[2019-10-03 09:17] LABS: Albumin 2.5 g/dL (3.5-5.0); Calcium 8.1 mg/dL (8.4-10.2); Total Protein 6.4 g/dL (6.3-8.2)
[2019-10-03 09:27] LABS: Basophils % (A) 1 %; Eosinophils # (A) 0.3 k/uL (0-0.7); Eosinophils % (A) 8 %; HCT 36.9 % (34.0-46.0); HGB 12.1 gm/dL (11.4-16.0); Lymphocytes # (A) 0.9 k/uL (1.0-4.8); Lymphocytes % (A) 24 %; MCH 36.2 pg (25.0-35.0); MCHC 32.9 g/dL (31.0-37.0); Macrocytosis Marked; Mean Platelet Volume 7.6; Monocytes # (A) 0.3 k/uL (0-1.0); Monocytes % (A) 8 %; Neutrophils # (A) 2.3 k/uL (1.3-7.7); Neutrophils % (A) 58 %; RBC 3.35 m/uL (3.80-5.40); RDW 14.1 % (11.5-15.5); WBC 3.9 k/uL (3.8-10.6)
[2019-10-03] MEDS: ONDANSETRON 4 MG/2 ML VIAL IVP PRN ×2 (09:30→15:13)
[2019-10-03 09:32] LABS: Platelet Count 66 k/uL (150-450)
--- NOTE | 2019-10-03 10:31 | P.PN ---
Subjective Progress Note Date: 10/03/19 This is a 74-year-old female patient well-known to my services who presented with complaints of generalized weakness has been increasing over the past week. Patient also complains of nausea and generalized upper abdominal discomfort. Patient denies any fever or chills.vision in the past medical history of hepatocellular liver cancer with chemo immobilization in 2018, chronic ascites, nonalcoholic liver cirrhosis, diabetes mellitus, hypertension, liver disease, myocardial infarction, chronic renal disease, chronic abdominal pain, diverticular disease with ileostomy, MRSA and VRE. KUB x-ray completed showing no definitive acute intra-abdominal abnormality. Stable 8mm calculus in the right lower quadrant. Chest x-ray completed showing no acute intrathoracic abnormality. given 1 L of fluid started on normal saline at 100. Blood and urine cultures ordered. At this time patient feels slightly improved. Patient denies chest pain or shortness breath. Patient denies nausea vomiting or rita rrhea. Patient denies any urinary burning or frequency On 10/03/2019 patient is alert and oriented 3. Patient having some increased abdominal pain today. GI services are following. Urine culture pending patient currently on Cipro. Patient denies chest pain or shortness of breath. Patient denies nausea vomiting or diarrhea. Patient denies any urinary burning or frequency. Objective - Vital Signs Vital signs: Vital Signs Temp 98.8 F 10/03/19 04:10 Pulse 67 10/03/19 04:10 Resp 16 10/03/19 04:10 BP 93/50 10/03/19 04:10 Pulse Ox 97 10/03/19 04:10 Intake & Output 10/02/19 10/03/19 10/03/19 18:59 06:59 18:59 Intake Total 1170 240 Balance 1170 240 Intake: Oral 1170 240 Other: Voiding Method Toilet # Voids 3 3 # Bowel Movements 3 1 - Exam Head normocephalic Neck supple Lungs clear to auscultation bilaterally no wheezing or crackles Heart regular rate and rhythm S1-S2, no rub or gallop Abdomen is soft nontender, positive bowel sounds. Right lower quadrant ileostomy in place Extremities no edema Neuro alert and orientated to 3 - Labs CBC & Chem 7: 10/03/19 08:30 10/03/19 08:30 Labs: Abnormal Lab Results - Last 24 Hours (Table) 1110/02/19 10/02/19 Range/Units 09:53 09:53 11:06 RBC 3.37 L (3.80-5.40) m/uL MCV 108.7 H (80.0-100.0) fL MCH 36.3 H (25.0-35.0) pg Plt Count 74 L (150-450) k/uL Lymphocytes # (1.0-4.8) k/uL Macrocytosis Marked A Sodium 136 L (137-145) mmol/L Chloride 112 H (98-107) mmol/L Carbon Dioxide 17 L (22-30) mmol/L Creatinine 1.15 H (0.52-1.04) mg/dL Glucose 216 H (74-99) mg/dL POC Glucose (mg/dL) (75-99) mg/dL Calcium (8.4-10.2) mg/dL Total Bilirubin 2.6 H (0.2-1.3) mg/dL AST 75 H (14-36) U/L ALT (9-52) U/L Alkaline Phosphatase 215 H (38-126) U/L Ammonia 43 H (<30) umol/L Albumin 2.6 L (3.5-5.0) g/dL 10/02/19 10/02/19 10/02/19 Range/Units 11:26 16:46 20:46 RBC (3.80-5.40) m/uL MCV (80.0-100.0) fL MCH (25.0-35.0) pg Plt Count (150-450) k/uL Lymphocytes # (1.0-4.8) k/uL Macrocytosis Sodium (137-145) mmol/L Chloride (98-107) mmol/L Carbon Dioxide (22-30) mmol/L Creatinine (0.52-1.04) mg/dL Glucose (74-99) mg/dL POC Glucose (mg/dL) 237 H 165 H 155 H (75-99) mg/dL Calcium (8.4-10.2) mg/dL Total Bilirubin (0.2-1.3) mg/dL AST (14-36) U/L ALT (9-52) U/L Alkaline Phosphatase (38-126) U/L Ammonia (<30) umol/L Albumin (3.5-5.0) g/dL 11/19/19 11/19/19 11/19/19 Range/Units 04:28 07:03 08:30 RBC 3.35 L (3.80-5.40) m/uL MCV 110.0 H (80.0-100.0) fL MCH 36.2 H (25.0-35.0) pg Plt Count 66 L (150-450) k/uL Lymphocytes # 0.9 L (1.0-4.8) k/uL Macrocytosis Marked A Sodium (137-145) mmol/L Chloride (98-107) mmol/L Carbon Dioxide (22-30) mmol/L Creatinine (0.52-1.04) mg/dL Glucose (74-99) mg/dL POC Glucose (mg/dL) 133 H 155 H (75-99) mg/dL Calcium (8.4-10.2) mg/dL Total Bilirubin (0.2-1.3) mg/dL AST (14-36) U/L ALT (9-52) U/L Alkaline Phosphatase (38-126) U/L Ammonia (<30) umol/L Albumin (3.5-5.0) g/dL 10/03/19 10/03/19 Range/Units 08:30 08:30 RBC (3.80-5.40) m/uL MCV (80.0-100.0) fL MCH (25.0-35.0) pg Plt Count (150-450) k/uL Lymphocytes # (1.0-4.8) k/uL Macrocytosis Sodium 135 L (137-145) mmol/L Chloride 109 H (98-107) mmol/L Carbon Dioxide 18 L (22-30) mmol/L Creatinine 1.11 H (0.52-1.04) mg/dL Glucose 197 H (74-99) mg/dL POC Glucose (mg/dL) (75-99) mg/dL Calcium 8.1 L (8.4-10.2) mg/dL Total Bilirubin 2.0 H (0.2-1.3) mg/dL AST 71 H (14-36) U/L ALT 54 H (9-52) U/L Alkaline Phosphatase 238 H (38-126) U/L Ammonia 82 H (<30) umol/L Albumin 2.5 L (3.5-5.0) g/dL Microbiology - Last 24 Hours (Table) 10/02/19 15:30 Urine Culture - Preliminary Urine,Clean Catch 10/01/19 12:00 Blood Culture - Preliminary Blood No Growth after 24 hours Assessment and Plan Assessment: 1. Abdominal pain with decreased appetite. KUB x-ray completed showing no definitive interval acute intra-abdominal abnormality stable 8mm calculus in the right lower quadrant. Lipase 28. GI services following. Per GI services continue with Protonix daily continue with Carafate for endoscopic intervention at this time 2. Generalized weakness likely secondary to dehydration. Urine and blood cultures ordered. Continue fluids at 100 . PT/OT consulted 3. History of nonalcoholic liver cirrhosis 4. History of chronic kidney disease stage III 5. History of hepatocellular carcinoma. 6. History of diverticulitis with ileostomy placement 7. Diabetes mellitus type 2. Patient started on sliding scale coverage. Home meds held 8. Chronic elevated ammonia level secondary to Hepatocellular carcinoma non- alcoholic liver cirrhosis. Patient maintained on lactulose and Xifaxan. ammonia levels ordered 9. History of urine colonization with VRE 10. History of depression 11. Thrombocytopenia secondary to known hepatocellular carcinoma and liver cirrhosis 12. Recurring abdominal ascites. 13. Urinary tract infection. UA showing small amounts of leukocyte Estrace. Urine culture ordered. Patient currently on Cipro DVT prophylaxis SCDs due to thrombocytopenia. GI prophylaxis Protonix
[2019-10-03] MEDS: MORPHINE SULFATE 2 MG/ML SYRINGE IVP PRN ×2 (10:51→15:13)
[2019-10-03 11:56] LABS: Glucose,Whole Blood 134 mg/dL (75-99)
[2019-10-03 17:01] LABS: Glucose,Whole Blood 144 mg/dL (75-99)
--- NOTE | 2019-10-03 17:48 | PN ---
PROGRESS NOTE DATE OF DICTATION: 10/03/2019 The patient is a 74-year-old pleasant white female with history of BATISTA/cirrhosis of the liver, admitted to the hospital with not feeling well, fatigue, weakness, epigastric pain. She complains of some abdominal distention today. She has some nausea. No emesis. No rectal bleeding or melena. PHYSICAL EXAMINATION: She appears comfortable. No apparent distress. VITAL SIGNS: Stable. Blood pressure is 98/54, pulse rate 67, temperature 98. HEENT examination unremarkable. Conjunctivae pink. Sclerae anicteric. Oral cavity no lesions. NECK: No JVD or lymph node enlargement. CHEST: Clear to auscultation. HEART: Regular rate and rhythm. ABDOMEN: Soft. It was slightly distended. There was tenderness in the epigastric area. The ileostomy bag in the lower abdomen had brown stool. EXTREMITIES: No pedal edema. SKIN: No rashes. NEUROLOGIC: Alert and oriented x3. No focal deficits. LABS: WBC 3.6, hemoglobin 12.1, platelets 66,000. Basic metabolic panel is within normal limits. Creatinine is 1.11. Bilirubin is 2. AST 71, ALT 54, alkaline phosphatase 238. C difficile toxin is negative. IMPRESSION: 1. Epigastric pain associated with nausea but no emesis, status post esophagogastroduodenoscopy 2 months ago that showed some gastritis. Presently on Protonix and Carafate. 2. Abdominal distention; rule out ascites. 3. Cirrhosis of the liver secondary to nonalcoholic steatohepatitis, which appears to be well compensated. 4. History of hepatocellular carcinoma, status post chemoembolization in November of this year at [facility]. RECOMMENDATIONS: 1. Will obtain ultrasound of the abdomen to evaluate for ascites. 2. Continue with Protonix as well as Carafate. 3. Low-salt diet. 4. Will follow with you closely during her hospital stay. Thank you for this consultation. MMODL / IJN: [id number] /
[2019-10-03] MEDS: CIPROFLOXACIN HCL 250 MG TAB PO SCH (20:29)
[2019-10-03 21:03] LABS: Glucose,Whole Blood 137 mg/dL (75-99)
[2019-10-03 23:35] LABS: Glucose,Whole Blood 171 mg/dL (75-99)
[2019-10-04 06:34] LABS: Basophils % (A) 1 %; Eosinophils # (A) 0.3 k/uL (0-0.7); Eosinophils % (A) 9 %; HGB 11.1 gm/dL (11.4-16.0); Lymphocytes # (A) 0.9 k/uL (1.0-4.8); Lymphocytes % (A) 26 %; MCH 36.3 pg (25.0-35.0); MCHC 33.6 g/dL (31.0-37.0); MCV 107.8 fL (80.0-100.0); Macrocytosis Moderate; Mean Platelet Volume 8.2; Monocytes # (A) 0.3 k/uL (0-1.0); Monocytes % (A) 7 %; Neutrophils % (A) 55 %; RBC 3.06 m/uL (3.80-5.40); RDW 13.9 % (11.5-15.5); WBC 3.6 k/uL (3.8-10.6)
[2019-10-04 06:37] LABS: Platelet Count 59 k/uL (150-450)
[2019-10-04 06:43] LABS: Albumin 2.4 g/dL (3.5-5.0); Calcium 8.2 mg/dL (8.4-10.2); Potassium 4.3 mmol/L (3.5-5.1); Total Bilirubin 2.6 mg/dL (0.2-1.3); Total Protein 5.9 g/dL (6.3-8.2)
[2019-10-04 06:58] LABS: Glucose,Whole Blood 131 mg/dL (75-99)
[2019-10-04] MEDS: INSULIN ASPART (NovoLOG) 100 UNIT/ML VIAL SQ SCH ×3 (07:05→17:42)
[2019-10-04] MEDS: METOPROLOL TARTRATE 12.5 MG TAB PO SCH (07:20)
[2019-10-04] MEDS: LACTULOSE 20 GM/30 ML CUP PO SCH ×2 (07:20→17:16)
[2019-10-04] MEDS: PANTOPRAZOLE 40 MG TABLET PO SCH ×2 (07:21→17:16)
[2019-10-04] MEDS: SUCRALFATE 1 GM TAB PO SCH ×3 (07:21→17:16)
[2019-10-04] MEDS: DICYCLOMINE 20 MG TAB PO SCH ×3 (07:21→17:16)
[2019-10-04] MEDS: FUROSEMIDE 40 MG TAB PO SCH (07:21)
[2019-10-04] MEDS: ISOSORBIDE MONONITRATE ER 30 MG TAB.ER.24H PO SCH (07:22)
[2019-10-04] MEDS: SPIRONOLACTONE 25 MG TAB PO SCH (07:22)
[2019-10-04] MEDS: FERROUS SULFATE 325 MG TAB PO SCH (07:22)
[2019-10-04] MEDS: CHOLECALCIFEROL 1,000 UNIT TAB PO SCH (07:22)
[2019-10-04] MEDS: RIFAXIMIN 550 MG TABLET PO SCH (07:26)
[2019-10-04] MEDS: CIPROFLOXACIN HCL 250 MG TAB PO SCH (07:26)
[2019-10-04] MEDS: buPROPion SR 150 MG TABLET.ER PO SCH (07:26)
[2019-10-04] MEDS: INSULIN NPH 300 UNIT/3 ML VIAL SQ SCH (07:27)
[2019-10-04] MEDS: MORPHINE SULFATE ER 15 MG TABLET PO SCH (08:52)
--- NOTE | 2019-10-04 09:45 | US ---
EXAMINATION TYPE: US abdomen limited DATE OF EXAM: 10/04/2019 COMPARISON: Limited ultrasound dated 08/22/2019 CLINICAL HISTORY: cirrhosis of liver, rule out ascites. R/O ascites per order TECHNIQUE/FINDINGS: Limited grayscale abdominal ultrasound was performed in all 4 quadrants to assess for ascites only. All four quadrants scanned. Ascites visualized in LUQ and LLQ. This appears ove rall small volume. IMPRESSION: Small volume recurrent abdominopelvic ascites.
[2019-10-04 11:55] LABS: Glucose,Whole Blood 144 mg/dL (75-99)
[2019-10-04] MEDS: MORPHINE SULFATE 2 MG/ML SYRINGE IVP PRN (12:47)
[2019-10-04 13:54] VITALS: BP 111/66; PULSE 63; RESP 17; TEMP 97.6
--- NOTE | 2019-10-04 14:54 | P.DS ---
Providers Date of admission: 10/02/19 11:55 Expected date of discharge: 10/04/19 Attending physician: Artemio Lea Consults: 10/02/19 13:58 Consult Physician Routine Consulting Provider: Carley Valverde Consult Reason/Comments: Abdominal pain increase stool Do you want consulting provider notified?: Yes Primary care physician: Artemio Lea [facility] Course: Discharge diagnosis 1. Abdominal pain with decreased appetite. KUB x-ray completed showing no definitive interval acute intra-abdominal abnormality stable 8mm calculus in the right lower quadrant. Lipase 28. GI services following. Per GI services continue with Protonix daily continue with Carafate no endoscopic intervention at this time. Ultrasound of abdomen completed showing small volume of recurrent abdomio pelvic ascites. Per GI patient has been cleared for discharge no need for paracentesis at this time 2. Generalized weakness likely secondary to dehydration. Urine and blood cultures ordered. Continue fluids at 100 . PT/OT consulted. Resolved 3. History of nonalcoholic liver cirrhosis 4. History of chronic kidney disease stage III. Creatinine 1.2 to repeat CMP has been ordered 5. History of hepatocellular carcinoma. 6. History of diverticulitis with ileostomy placement 7. Diabetes mellitus type 2. Patient started on sliding scale coverage. Home meds held 8. Chronic elevated ammonia level secondary to Hepatocellular carcinoma non- alcoholic liver cirrhosis. Patient maintained on lactulose and Xifaxan. ammonia levels ordered 9. History of urine colonization with VRE 10. History of depression 11. Thrombocytopenia secondary to known hepatocellular carcinoma and liver cirrhosis 12. Recurring abdominal ascites. 13. Urinary tract infection. UA showing small amounts of leukocyte Estrace. Urine culture ordered. Patient currently on Cipro. Urine culture showing no growth. No need for antibiotics upon discharge. blood culture negative Hospital course This is a 74-year-old female patient well-known to my services who presented with complaints of generalized weakness has been increasing over the past week. Patient also complains of nausea and generalized upper abdominal discomfort. Patient denies any fever or chills.vision in the past medical history of hepatocellular liver cancer with chemo immobilization in 2018, chronic ascites, nonalcoholic liver cirrhosis, diabetes mellitus, hypertension, liver disease, myocardial infarction, chronic renal disease, chronic abdominal pain, diverticular disease with ileostomy, MRSA and VRE. KUB x-ray completed showing no definitive acute intra-abdominal abnormality. Stable 8mm calculus in the right lower quadrant. Chest x-ray completed showing no acute intrathoracic abnormality. given 1 L of fluid started on normal saline at 100. Blood and urine cultures ordered. At this time patient feels slightly improved. Patient denies chest pain or shortness breath. Patient denies nausea vomiting or diarrhea. Patient denies any urinary burning or frequency On 10/03/2019 patient is alert and oriented 3. Patient having some increased abdominal pain today. GI services are following. Urine culture pending patient currently on Cipro. Patient denies chest pain or shortness of breath. Patient denies nausea vomiting or diarrhea. Patient denies any urinary burning or frequency. On 10/04/2019 patient is alert and oriented 3. Abdominal pain has improved. Patient underwent ultrasound per GI services no need for paracentesis at this ti me patient has been cleared for discharge. Urine and blood culture negative. C. diff negative. Patient denies chest pain or shortness of breath. Patient denies nausea vomiting or diarrhea. Patient denies any urinary or frequency. I performed an examination of the patient and discussed their management with the Nurse Practitioner. I have reviewed the Nurse Practitioner's notes and agree with the documented findings and plan of care Patient Condition at Discharge: Stable Plan - Discharge Summary New Discharge Prescriptions: New Metoprolol Tartrate [Lopressor] 6.25 mg PO DAILY tab Continue Sucralfate [Carafate] 1 gm PO ACHS Omeprazole [PriLOSEC] 20 mg PO DAILY Insulin Regular, Human [NovoLIN R] 10 unit SQ AC-TID Cholecalciferol [Vitamin D3 (25 Mcg = 1000 Iu)] 2,000 unit PO DAILY Ferrous Sulfate [Iron (65 MG Elemental)] 325 mg PO BID Morphine Sulfate [Ms Contin] 15 mg PO BID Ondansetron Odt [Zofran ODT] 8 mg SL DAILY PRN PRN Reason: Nausea buPROPion HCL [Wellbutrin SR] 150 mg PO DAILY clonazePAM [KlonoPIN] 0.5 mg PO BID PRN PRN Reason: Anxiety Lactulose [Cephulac] 30 gm PO TID Isosorbide Mononitrate ER [Imdur] 30 mg PO DAILY 30 Days #30 tab.er.24h Spironolactone [Aldactone] 50 mg PO DAILY 30 Days #30 tab Furosemide [Lasix] 40 mg PO DAILY 30 Days #30 tablet Dicyclomine [Bentyl] 10 mg PO DAILY Insulin NPH Human Isophane [NovoLIN N] 18 unit SQ AC-BID Discharge Medication List Omeprazole [PriLOSEC] 20 mg PO DAILY 10/23/18 [History] Sucralfate [Carafate] 1 gm PO ACHS 10/23/18 [History] Insulin Regular, Human [NovoLIN R] 10 unit SQ AC-TID 10/24/18 [History] Cholecalciferol [Vitamin D3 (25 Mcg = 1000 Iu)] 2,000 unit PO DAILY 01/16/19 [History] Ferrous Sulfate [Iron (65 MG Elemental)] 325 mg PO BID 01/31/19 [History] Morphine Sulfate [Ms Contin] 15 mg PO BID 05/15/19 [History] Ondansetron Odt [Zofran ODT] 8 mg SL DAILY PRN 06/12/19 [History] buPROPion HCL [Wellbutrin SR] 150 mg PO DAILY 06/12/19 [History] clonazePAM [KlonoPIN] 0.5 mg PO BID PRN 06/12/19 [History] Lactulose [Cephulac] 30 gm PO TID 07/22/19 [History] Isosorbide Mononitrate ER [Imdur] 30 mg PO DAILY 30 Days #30 tab.er.24h 07/26/19 [Rx] Furosemide [Lasix] 40 mg PO DAILY 30 Days #30 tablet 08/07/19 [Rx] Spironolactone [Aldactone] 50 mg PO DAILY 30 Days #30 tab 08/07/19 [Rx] Dicyclomine [Bentyl] 10 mg PO DAILY 10/02/19 [History] Insulin NPH Human Isophane [NovoLIN N] 18 unit SQ AC-BID 10/02/19 [History] Metoprolol Tartrate [Lopressor] 6.25 mg PO DAILY tab 10/04/19 [Rx] Follow up Appointment(s)/Referral(s): Artemio Lea MD [Primary Care Provider] - 1-2 days Carley Valverde MD [STAFF PHYSICIAN] - 1 Week Ambulatory/Diagnostic Orders: Comprehensive Metabolic Panel [LAB.AMB] Time Frame: 2 Days, Location: None Selected Activity/Diet/Wound Care/Special Instructions: Activity as tolerated Diet consistent carb Discharge Disposition: HOME WITH HOME HEALTH SERVICES
--- NOTE | 2019-10-04 15:57 | PN ---
PROGRESS NOTE DATE OF DICTATION: 10/04/2019 Patient is a 74-year-old pleasant white female with history of non-alcoholic steatohepatitis/cirrhosis of the liver, admitted to the hospital with fatigue, weakness, abdominal pain and some abdominal distention. She did have ultrasound of the abdomen done that showed minimal amount of ascites. She still continues to have epigastric discomfort despite being on Protonix 40 mg daily as well as Carafate 1 gram 4 times daily. She, however, reports no nausea or vomiting. She has had intermittent postprandial diarrhea for the last few days. Stool studies for C difficile toxin was negative during this hospitalization. She reports no fever, chills, night sweats. PHYSICAL EXAMINATION: She appears comfortable. No apparent distress. VITAL SIGNS: Stable. Blood pressure an 111/66, pulse rate 63, temperature 97.6. HEENT examination unremarkable. Conjunctivae pink. Sclerae anicteric. Oral cavity no lesions. NECK: No JVD or lymph node enlargement. CHEST: Clear to auscultation. HEART: Regular rate and rhythm. ABDOMEN: Soft. There was very minimal tenderness in the epigastric area. There was ileostomy in place with soft to liquid stool noted. No bleeding seen. EXTREMITIES: No pedal edema. SKIN: No rashes. NEUROLOGIC: Alert and oriented x3. No focal deficits. LABS: Labs from today show WBC 3.6, hemoglobin 11.1, platelets 59,000. AST and ALT are 59 and 44, respectively. T-bilirubin is 2.6 and alkaline phosphatase 200. C difficile was negative. IMPRESSION: 1. Epigastric pain/postprandial diarrhea, status post esophagogastroduodenoscopy 2 months ago that showed mild gastritis, presently on Protonix and Carafate. Still remains symptomatic; questionable functional etiology. 2. Non-alcoholic steatohepatitis/cirrhosis of the liver which appears to be fairly well compensated. 3. History of hepatocellular carcinoma requiring chemoembolization at [facility] in November of this year. Ultrasound of the abdomen done today did not mention any liver mass. 4. Small amount of ascites, presently on Lasix 40 mg daily and Aldactone 50 mg daily. RECOMMENDATIONS: 1. Continue with current medications. 2. Low-salt diet. 3. No plans for any endoscopic intervention. 4. Pain medications as needed. Will follow with you closely during her hospital stay. Thank you for this consultation. MMODL / IJN: [id number] /
[2019-10-04 16:57] LABS: Glucose,Whole Blood 137 mg/dL (75-99)
== END 2019-10-04 18:35 | disposition home health service (06) | DRG 641 ==
LOC: EC 11:36 → 4MS4W 14:21 → OBSVTOIN 10-02 11:55
PROVIDERS: ADMIT Internal Medicine; ATTEND Internal Medicine
DX: E86.0 Dehydration (principal); R18.8 Other ascites; N39.0 Urinary tract infection, site not specified; E11.22 Type 2 diabetes mellitus with diabetic chronic kidney disease; I45.10 Unspecified right bundle-branch block; N18.3 Chronic kidney disease, stage 3 (moderate); K75.81 Nonalcoholic steatohepatitis (NASH); K74.60 Unspecified cirrhosis of liver; I12.9 Hypertensive chronic kidney disease with stage 1 through stage 4 chronic kidney disease, or unspecified chronic kidney disease; R62.7 Adult failure to thrive; D69.59 Other secondary thrombocytopenia; G89.29 Other chronic pain; I25.10 Atherosclerotic heart disease of native coronary artery without angina pectoris; K29.70 Gastritis, unspecified, without bleeding; F32.9 Major depressive disorder, single episode, unspecified; F41.9 Anxiety disorder, unspecified; I25.2 Old myocardial infarction; Z93.2 Ileostomy status; Z79.4 Long term (current) use of insulin; Z79.891 Long term (current) use of opiate analgesic; Z79.899 Other long term (current) drug therapy; Z85.05 Personal history of malignant neoplasm of liver; Z87.891 Personal history of nicotine dependence; Z86.73 Personal history of transient ischemic attack (TIA), and cerebral infarction without residual deficits; Z86.14 Personal history of Methicillin resistant Staphylococcus aureus infection; Z86.19 Personal history of other infectious and parasitic diseases; Z87.11 Personal history of peptic ulcer disease; Z90.49 Acquired absence of other specified parts of digestive tract; Z90.710 Acquired absence of both cervix and uterus; Z98.891 History of uterine scar from previous surgery; Z98.890 Other specified postprocedural states; Z88.5 Allergy status to narcotic agent; Z88.0 Allergy status to penicillin; Z88.8 Allergy status to other drugs, medicaments and biological substances; Z91.048 Other nonmedicinal substance allergy status; Z82.49 Family history of ischemic heart disease and other diseases of the circulatory system
CPT/HCPCS: 36415; 71046; 74018; 76705; 80053; 81001; 82140; 82550; 83605; 83690; 83735; 85025; 87040; 87086; 87324; 93005; 96361; 96374; 99285

== ENCOUNTER 2019-11-06 12:20 | Inpatient (IN) | payer MEDICARE, OTHER ==
[2019-11-06] MEDS ORDERED: IBUPROFEN 600 MG TAB PO STA (13:58)
[2019-11-06] MEDS ORDERED: SODIUM CHLORIDE 0.9% 500 ML 500 ML IV STA (13:58)
[2019-11-06] MEDS ORDERED: MORPHINE SULFATE 4 MG/ML SYRINGE IVP STA (13:59)
[2019-11-06] MEDS ORDERED: ONDANSETRON 4 MG/2 ML VIAL IVP STA (13:59)
[2019-11-06 14:45] LABS: Basophils % (A) 0 %; Eosinophils # (A) 0.1 k/uL (0-0.7); Eosinophils % (A) 1 %; HCT 32.8 % (34.0-46.0); HGB 11.4 gm/dL (11.4-16.0); Lymphocytes # (A) 0.8 k/uL (1.0-4.8); Lymphocytes % (A) 12 %; MCH 36.7 pg (25.0-35.0); MCHC 34.7 g/dL (31.0-37.0); MCV 105.9 fL (80.0-100.0); Macrocytosis Moderate; Mean Platelet Volume 11.5; Monocytes # (A) 0.5 k/uL (0-1.0); Monocytes % (A) 7 %; Neutrophils # (A) 5.6 k/uL (1.3-7.7); Neutrophils % (A) 79 %; RDW 14.6 % (11.5-15.5); WBC 7.1 k/uL (3.8-10.6)
[2019-11-06 14:51] LABS: INR 1.4 (<1.2); Prothrombin Time 14.6 sec (9.0-12.0)
[2019-11-06 14:52] LABS: Lactic Acid, Venous 1.5 mmol/L (0.7-2.0)
[2019-11-06 14:54] LABS: Albumin 2.6 g/dL (3.5-5.0); Potassium 3.6 mmol/L (3.5-5.1); Total Bilirubin 3.3 mg/dL (0.2-1.3); Total Protein 6.4 g/dL (6.3-8.2)
[2019-11-06 14:56] LABS: Appearance,Urine Clear (Clear); Bacteria,Urine Moderate /hpf; Bilirubin,Urine Negative (Negative); Blood,Urine Negative (Negative); Color,Urine Yellow; Glucose,Urine (UA) Negative (Negative); Hyaline Casts,Urine 6 /lpf (0-2); Ketones,Urine Negative (Negative); Leukocyte Esterase,Urine Small (Negative); Mucus,Urine Rare /hpf; Nitrite,Urine Negative (Negative); PH, Urine 5.5 (5.0-8.0); Protein,Urine Negative (Negative); RBC,Urine 1 /hpf (0-5); Specific Gravity,Urine 1.011 (1.001-1.035); Squamous Epithelial Cell,Urine 1 /hpf (0-4); Urobilinogen,Urine <2.0 mg/dL (<2.0); WBC,Urine 5 /hpf (0-5)
--- NOTE | 2019-11-06 14:58 | XR ---
EXAMINATION TYPE: XR chest 2V DATE OF EXAM: 11/06/2019 COMPARISON: 10/01/2019 HISTORY: Shortness of breath TECHNIQUE: Frontal and lateral views of the chest are obtained. FINDINGS: Scattered senescent parenchymal changes noted. Hyperinflation compatible with COPD. No evidence for infiltrate. No evidence for atelectasis. Heart size is stable. Mediastinal structures are stable and grossly unremarkable. No evidence for hilar prominence. Degenerative changes dorsal spine. IMPRESSION: 1. No evidence for acute pulmonary disease.
[2019-11-06 15:24] LABS: Platelet Count 63 k/uL (150-450)
--- NOTE | 2019-11-06 15:57 | US ---
EXAMINATION TYPE: US abdomen complete DATE OF EXAM: 11/06/2019 COMPARISON: NONE CLINICAL HISTORY: 74-year-old female abdominal pain, fever, rectal bleeding. Abdomen pain and N/V, hi story of cholecystectomy TECHNIQUE: Multiple sonographic images of the abdomen are obtained. FINDINGS: EXAM MEASUREMENTS: Liver Length: 13.1 cm CBD: 0.6 cm Spleen: 10.5 cm Right Kidney: 10.1 x 6.4 x 4.9 cm Left Kidney: 9.6 x 5.0 x 4.9 cm Pancreas: visualized portions wnl, limited by overlying midline bowel gas Liver: heterogeneous, course echotexture, 1.2 x 1.2cm echogenic area left lobe, 5.0 x 5.1 x 5.5cm il l defined, round hypoechoic area posterior right lobe Gallbladder: surgically absent Evidence for sonographic Vicente's sign: yes CBD: visualized portions wnl given patient's age and postcholecystectomy status, limited by overlyin g bowel gas Spleen: wnl Right Kidney: wnl Left Kidney: wnl Upper IVC: wnl Abd Aorta: wnl Abdominal ascites seen in all 4 quadrants, mild in the upper abdomen moderate in the lower quadrant s. IMPRESSION: 1. Cirrhosis. There appears to be a focal 5.5 cm lesion posterior right liver lobe and a possible 1.2 cm second lesion in the left liver lobe. In the setting of cirrhosis, HCC is not excluded. 2. Mild to moderate abdominopelvic ascites. 3. Tenderness while scanning along the right upper quadrant.
--- NOTE | 2019-11-06 17:47 | ED ---
Fever HPI - General Chief Complaint: Fever Stated Complaint: fever/weakness Time Seen by Provider: 11/06/19 13:15 Source: patient, family Mode of arrival: wheelchair Limitations: no limitations - History of Present Illness Initial Comments: The patient is a 74-year-old female with past history of hepatocellular cancer, diabetes and hypertension who presents to the emergency room with reported fever. She states for the past 2 days she's been having a nonproductive cough and nasal congestion. She has had multiple sick contacts with similar symptoms. She denies any ear pain or sore throat. Denies any chest pain or difficulty breathing. She has had chills at home with a recorded fever 102. She did take some Tylenol for fever control. She has also had diffuse abdominal cramping with mild abdominal distention. States that her abdomen is more distended than usual and does believe that she requires paracentesis. She sees Dr. Figueroa in office. The patient does have a colostomy secondary to diverticulitis. States that when she was cleaning her ostomy bag yesterday she noted some bright red blood around the stoma. States that the bowel movement has been normal today. Denies dysuria, hematuria or difficulty voiding but does state that she has history of recurrent urinary tract infections. Admits to feeling foggy. States that she hasn't taken her lactulose in 3 days because her fecal output has been loose. She denies any back or flank pain. No blunt head trauma. No headaches or visual changes. Denies any unilateral numbness or weakness. There are no alleviating, precipitating or modifying factors - Related Data Home Medications Medication Instructions Recorded Confirmed Omeprazole [PriLOSEC] 20 mg PO DAILY 10/23/18 11/09/19 Sucralfate [Carafate] 1 gm PO ACHS 10/23/18 11/09/19 Insulin Regular, Human [NovoLIN R] 10 unit SQ AC-TID 10/24/18 11/09/19 Cholecalciferol [Vitamin D3 (25 2,000 unit PO DAILY 01/16/19 11/09/19 Mcg = 1000 Iu)] Ferrous Sulfate [Iron (65 MG 325 mg PO BID 01/31/19 11/09/19 Elemental)] Morphine Sulfate [Ms Contin] 15 mg PO BID 05/15/19 11/09/19 buPROPion HCL [Wellbutrin SR] 150 mg PO DAILY 06/12/19 11/09/19 clonazePAM [KlonoPIN] 0.5 mg PO BID PRN 06/12/19 11/06/19 Lactulose [Cephulac] 30 gm PO TID 07/22/19 11/09/19 Dicyclomine [Bentyl] 10 mg PO DAILY 10/02/19 11/09/19 Insulin NPH Human Isophane 18 unit SQ AC-BID 10/02/19 11/09/19 [NovoLIN N] Previous Rx's Medication Instructions Recorded Isosorbide Mononitrate ER [Imdur] 30 mg PO DAILY 30 Days #30 07/26/19 tab.er.24h Furosemide [Lasix] 40 mg PO DAILY 30 Days #30 tablet 08/07/19 Spironolactone [Aldactone] 50 mg PO DAILY 30 Days #30 tab 08/07/19 Metoprolol Tartrate [Lopressor] 6.25 mg PO DAILY tab 10/04/19 Allergies Allergy/AdvReac Type Severity Reaction Status Date / Time amlodipine Allergy Rash/Hives Verified 11/06/19 13:17 oxycodone Allergy Rash/Hives Verified 11/06/19 13:17 Penicillins Allergy Rash/Hives Verified 11/06/19 13:17 hydromorphone [From Dilaudid] AdvReac Mild tactile Verified 11/06/19 13:17 disturbance GREG Inhibitors AdvReac Cough Verified 11/06/19 13:17 sodium dodecyclbenzene Allergy Rash/Hives Uncoded 11/06/19 13:17 sulfonate Review of Systems ROS Statement: Those systems with pertinent positive or pertinent negative responses have been documented in the HPI. ROS Other: All systems not noted in ROS Statement are negative. Past Medical History Past Medical History: Cancer, Diabetes Mellitus, Hypertension, Liver Disease, My ocardial Infarction (CT), Renal Disease Additional Past Medical History / Comment(s): Hepatocellular liver cancer with chemo immobilization-last time being 2017, ascities with paracentesis's may 2019, nonalcoholic liver cirrhosis, chronic pancytopenia, chronic elevated ammo vanessa levels, hepatic encephalopathy, chronic elevated LFTs, chronic abdominal pain, stomach ulcer, diverticular disease with ileostomy, IDDM type II, iron anemia, CKD stage III, nonsustained vtach, UTI, high ammonia levels Last Myocardial Infarction Date:: unk History of Any Multi-Drug Resistant Organisms: MRSA, VRE Date of last positivie culture/infection: 07/22/19- VRE; 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 Past Anesthesia/Blood Transfusion Reactions: No Reported Reaction Past Psychological History: Anxiety, Depression Smoking Status: Former smoker Past Alcohol Use History: None Reported Past Drug Use History: None Reported - Past Family History Mother History Unknown: Yes Family Medical History: Congestive Heart Failure (CHF) Additional Family Medical History / Comment(s): Mother is 94 yrs old. Father Family Medical History: Chest Pain / Angina Additional Family Medical History / Comment(s): Father is . General Exam Limitations: no limitations General appearance: alert, in no apparent distress Head exam: Present: atraumatic, normocephalic Eye exam: Present: PERRL, EOMI ENT exam: Present: normal exam, normal oropharynx Neck exam: Present: normal inspection. Absent: tenderness, meningismus Respiratory exam: Present: normal lung sounds bilaterally. Absent: respiratory distress, wheezes, rales, rhonchi Cardiovascular Exam: Present: regular rate, normal rhythm GI/Abdominal exam: Present: soft, tenderness, other (colostomy right abdomen) Extremities exam: Present: normal inspection, full ROM Back exam: Present: normal inspection Neurological exam: Present: alert, oriented X3 Psychiatric exam: Present: normal affect, normal mood Skin exam: Present: warm, dry, intact Course Vital Signs 11/06/19 11/06/19 11/06/19 13:15 15:17 16:06 Temperature 100.5 F H 98.7 F Pulse Rate 76 73 Respiratory 18 Rate Blood Pressure 102/55 98/50 O2 Sat by Pulse 96 97 97 Oximetry 11/06/19 11/06/19 11/06/19 16:20 17:00 17:10 Temperature Pulse Rate Respiratory Rate Blood Pressure 98/50 91/52 O2 Sat by Pulse 99 100 Oximetry 11/06/19 11/06/19 17:20 18:00 Temperature Pulse Rate 64 Respiratory 9 L 18 Rate Blood Pressure 93/52 O2 Sat by Pulse 99 97 Oximetry Medical Decision Making - Medical Decision Making Upon arrival the patient was placed in room 20. A thorough history and physical exam was performed. IV was established. The patient was given a 500 nacl bolus, 4 mg of Zofran for nausea, 4 mg of morphine for pain control and 600 mg of Motrin for fever. Laboratory studies were conducted. I did recommend CT imaging of the patient's brain for her reported confusion and CT of the patient's abdomen for abdominal pain. The patient is refusing any CTs at this time. She only approved of ultrasound. Laboratory studies demonstrate multiple abnormalities which appear chronic. Patient's platelets are 63. INR 1.4. Sodium 130. Creatinine is elevated at 1.5 from 1.2. Total bili is 3.3. AST 93. ALTs 63. Alk phos 210. Urinalysis shows small leukocyte esterase with moderate bacteria. I did review the patient's previous culture results. She w as given a dose of Rocephin. Chest x-ray demonstrates no evidence of acute cadiopulmonary disease. ultrasound the patient's abdomen demonstrates cirrhosis. A focal 5.5 cm lesion posterior right liver lobe and possible 0.2 cm second lesion in the left liver lobe for which HCC is not excluded. Mild to moderate abdominal pelvic ascites. I discussed results with the patient. I did recommend hospital admission because the patient's multiple comorbid conditions. I will start the patient on 50 mL per hour. The patient was in agreement with the treatment plan. I discussed case with Dr. Lea who accepted admission. - Lab Data Result diagrams: 11/15/19 07:17 11/15/19 07:17 Lab Results 11/06/19 11/06/19 11/06/19 Range/Units 14:24 14:24 14:24 WBC 7.1 (3.8-10.6) k/uL RBC 3.10 L (3.80-5.40) m/uL Hgb 11.4 (11.4-16.0) gm/dL Hct 32.8 L (34.0-46.0) % MCV 105.9 H (80.0-100.0) fL MCH 36.7 H (25.0-35.0) pg MCHC 34.7 (31.0-37.0) g/dL RDW 14.6 (11.5-15.5) % Plt Count 63 L (150-450) k/uL Neutrophils % 79 % Lymphocytes % 12 % Monocytes % 7 % Eosinophils % 1 % Basophils % 0 % Neutrophils # 5.6 (1.3-7.7) k/uL Lymphocytes # 0.8 L (1.0-4.8) k/uL Monocytes # 0.5 (0-1.0) k/uL Eosinophils # 0.1 (0-0.7) k/uL Basophils # 0.0 (0-0.2) k/uL Manual Slide Review Performed Macrocytosis Moderate PT (9.0-12.0) sec INR (<1.2) APTT (22.0-30.0) sec Sodium 130 L (137-145) mmol/L Potassium 3.6 (3.5-5.1) mmol/L Chloride 100 (98-107) mmol/L Carbon Dioxide 21 L (22-30) mmol/L Anion Gap 9 mmol/L BUN 35 H (7-17) mg/dL Creatinine 1.59 H (0.52-1.04) mg/dL Est GFR (CKD-EPI)AfAm 37 (>60 ml/min/1.73 sqM) Est GFR (CKD-EPI)NonAf 32 (>60 ml/min/1.73 sqM) Glucose 158 H (74-99) mg/dL Plasma Lactic Acid Carlos 1.5 (0.7-2.0) mmol/L Calcium 8.0 L (8.4-10.2) mg/dL Total Bilirubin 3.3 H (0.2-1.3) mg/dL AST 93 H (14-36) U/L ALT 63 H (4-34) U/L Alkaline Phosphatase 210 H (38-126) U/L Ammonia 12 (<30) umol/L Total Protein 6.4 (6.3-8.2) g/dL Albumin 2.6 L (3.5-5.0) g/dL TSH 1.290 (0.465-4.680) mIU/L Urine Color Urine Appearance (Clear) Urine pH (5.0-8.0) Ur Specific [place] (1.001-1.035) Urine Protein (Negative) Urine Glucose (UA) (Negative) Urine Ketones (Negative) Urine Blood (Negative) Urine Nitrite (Negative) Urine Bilirubin (Negative) Urine Urobilinogen (<2.0) mg/dL Ur Leukocyte Esterase (Negative) Urine RBC (0-5) /hpf Urine WBC (0-5) /hpf Ur Squamous Epith Cells (0-4) /hpf Urine Bacteria (None) /hpf Hyaline Casts (0-2) /lpf Urine Mucus (None) /hpf Influenza Type A RNA (Not Detectd) Influenza Type B (PCR) (Not Detectd) 11/06/19 11/06/19 11/06/19 Range/Units 14:24 14:24 16:32 WBC (3.8-10.6) k/uL RBC (3.80-5.40) m/uL Hgb (11.4-16.0) gm/dL Hct (34.0-46.0) % MCV (80.0-100.0) fL MCH (25.0-35.0) pg MCHC (31.0-37.0) g/dL RDW (11.5-15.5) % Plt Count (150-450) k/uL Neutrophils % % Lymphocytes % % Monocytes % % Eosinophils % % Basophils % % Neutrophils # (1.3-7.7) k/uL Lymphocytes # (1.0-4.8) k/uL Monocytes # (0-1.0) k/uL Eosinophils # (0-0.7) k/uL Basophils # (0-0.2) k/uL Manual Slide Review Macrocytosis PT 14.6 H (9.0-12.0) sec INR 1.4 H (<1.2) APTT 28.0 (22.0-30.0) sec Sodium (137-145) mmol/L Potassium (3.5-5.1) mmol/L Chloride (98-107) mmol/L Carbon Dioxide (22-30) mmol/L Anion Gap mmol/L BUN (7-17) mg/dL Creatinine (0.52-1.04) mg/dL Est GFR (CKD-EPI)AfAm (>60 ml/min/1.73 sqM) Est GFR (CKD-EPI)NonAf (>60 ml/min/1.73 sqM) Glucose (74-99) mg/dL Plasma Lactic Acid Carlos (0.7-2.0) mmol/L Calcium (8.4-10.2) mg/dL Total Bilirubin (0.2-1.3) mg/dL AST (14-36) U/L ALT (4-34) U/L Alkaline Phosphatase (38-126) U/L Ammonia (<30) umol/L Total Protein (6.3-8.2) g/dL Albumin (3.5-5.0) g/dL TSH (0.465-4.680) mIU/L Urine Color Yellow Urine Appearance Clear (Clear) Urine pH 5.5 (5.0-8.0) Ur Specific [place] 1.011 (1.001-1.035) Urine Protein Negative (Negative) Urine Glucose (UA) Negative (Negative) Urine Ketones Negative (Negative) Urine Blood Negative (Negative) Urine Nitrite Negative (Negative) Urine Bilirubin Negative (Negative) Urine Urobilinogen <2.0 (<2.0) mg/dL Ur Leukocyte Esterase Small H (Negative) Urine RBC 1 (0-5) /hpf Urine WBC 5 (0-5) /hpf Ur Squamous Epith Cells 1 (0-4) /hpf Urine Bacteria Moderate H (None) /hpf Hyaline Casts 6 H (0-2) /lpf Urine Mucus Rare H (None) /hpf Influenza Type A RNA Not Detected (Not Detectd) Influenza Type B (PCR) Not Detected (Not Detectd) - EKG Data EKG Comments: EKG demonstrates a normal sinus rhythm with occasional PVCs. There is a right bundle branch block which was seen on previous EKG from September 2019. Ventricular rate of 65. NV . QRS 140. QTC of 501. No acute ST segment elevations or depressions concerning for ischemic changes Disposition Clinical Impression: MORENA (acute kidney injury), Chronic liver disease, Ascites, Abdominal pain, Nausea and vomiting, Hyperbilirubinemia, History of liver cancer, Cirrhosis of liver with ascites, UTI (urinary tract infection), bacterial Disposition: ADMITTED IP TO THIS HOSP Condition: Stable Is patient prescribed a controlled substance at d/c from ED?: No Decision to Admit Reason: Admit from EC Decision Date: 11/06/19 Decision Time: 17:47
[2019-11-06] MEDS ORDERED: NALOXONE 0.4 MG/ML 1 ML VIAL IV PRN (17:50)
[2019-11-06] MEDS: SODIUM CHLORIDE 0.9% 1,000 ML IV SCH (19:57)
[2019-11-06 20:38] LABS: Glucose,Whole Blood 240 mg/dL (75-99)
[2019-11-06] MEDS ORDERED: INSULIN REGULAR 100 UNIT/ML VIAL SQ ONE (21:51)
[2019-11-06] MEDS: MORPHINE SULFATE ER 15 MG TABLET PO SCH (21:54)
[2019-11-06] MEDS: FERROUS SULFATE 325 MG TAB PO SCH (21:54)
[2019-11-06] MEDS: LACTULOSE 20 GM/30 ML CUP PO SCH (21:56)
[2019-11-07 07:16] LABS: Glucose,Whole Blood 149 mg/dL (75-99)
[2019-11-07 07:56] LABS: Basophils % (A) 0 %; Eosinophils # (A) 0.1 k/uL (0-0.7); Eosinophils % (A) 1 %; HCT 31.4 % (34.0-46.0); HGB 10.8 gm/dL (11.4-16.0); Lymphocytes # (A) 0.6 k/uL (1.0-4.8); Lymphocytes % (A) 7 %; MCH 37.2 pg (25.0-35.0); MCHC 34.5 g/dL (31.0-37.0); MCV 107.9 fL (80.0-100.0); Macrocytosis Marked; Mean Platelet Volume 11.3; Monocytes # (A) 0.4 k/uL (0-1.0); Monocytes % (A) 5 %; Neutrophils % (A) 85 %; RBC 2.91 m/uL (3.80-5.40); RDW 14.6 % (11.5-15.5); WBC 8.3 k/uL (3.8-10.6)
[2019-11-07 07:58] LABS: Platelet Count 63 k/uL (150-450)
[2019-11-07 08:13] LABS: Calcium 7.7 mg/dL (8.4-10.2); Potassium 3.8 mmol/L (3.5-5.1)
[2019-11-07] MEDS: buPROPion SR 150 MG TABLET.ER PO SCH (08:38)
[2019-11-07] MEDS: METOPROLOL TARTRATE 12.5 MG TAB PO SCH (08:39)
[2019-11-07] MEDS: CHOLECALCIFEROL 1,000 UNIT TAB PO SCH (08:41)
[2019-11-07] MEDS: PANTOPRAZOLE 40 MG TABLET PO SCH (08:42)
[2019-11-07] MEDS: MORPHINE SULFATE ER 15 MG TABLET PO SCH ×2 (08:42→20:40)
[2019-11-07] MEDS: SUCRALFATE 1 GM TAB PO SCH ×3 (08:43→17:58)
[2019-11-07] MEDS: FUROSEMIDE 40 MG TAB PO SCH (08:43)
[2019-11-07] MEDS: FERROUS SULFATE 325 MG TAB PO SCH ×2 (08:43→20:40)
[2019-11-07] MEDS: DICYCLOMINE 10 MG CAP PO SCH (08:43)
[2019-11-07] MEDS: ISOSORBIDE MONONITRATE ER 30 MG TAB.ER.24H PO SCH (08:44)
[2019-11-07] MEDS: INSULIN REGULAR 100 UNIT/ML VIAL SQ SCH ×3 (08:45→17:52)
[2019-11-07] MEDS: INSULIN NPH 300 UNIT/3 ML VIAL SQ SCH ×2 (08:45→17:57)
[2019-11-07] MEDS: LACTULOSE 20 GM/30 ML CUP PO SCH ×3 (09:00→20:37)
[2019-11-07] MEDS: IBUPROFEN 400 MG TAB PO PRN ×2 (09:00→22:20)
[2019-11-07] MEDS ORDERED: SPIRONOLACTONE 25 MG TAB PO SCH (09:00)
--- NOTE | 2019-11-07 10:16 | P.HPIM ---
History of Present Illness H&P Date: 11/07/19 Chief Complaint: Febrile acute kidney injury moderate ascites This is a 74-year-old female patient who presented with complaints of fever that started on Wednesday progressively increased over the past few days. Patient reports she's had some increased loose stools out of ostomy. Patient also complains of mild upper respiratory symptoms. Patient denies any nausea or vomi ting. Patient denies cough or any open wounds Patient has a known past medical history of hepatocellular carcinoma. Additional medical history includes chronic ascites, nonalcoholic liver cirrhosis, diabetes mellitus, hypertension, liver, myocardial infarction, chronic renal disease chronic abdominal pain, diverticular disease with ileostomy, MRSA and VRE. Influenza negative. Leukocyte Estrace. Small amount of leukocyte Estrace noted to urine. Urine and blood cultures have been ordered. Chest x-ray completed showing no evidence for acute pulmonary disease. Abdominal ultrasound completed showing cirrhosis. There appears to be a focal 5 x 5 cm lesion posterior right liver lobe and pos sible 1.2 cm second lesion in the left liver lobe the setting cirrhosis HCC is not excluded. Mild to moderate abdominal pelvic ascites. Tenderness we'll scarring along the right upper quadrant. At this time blood, urine and lactic acid have been ordered stool for C. diff ordered. Infectious disease consulted. Dr. Figueroa also consulted for possible paracentesis. Patient denies any chest pain or shortness of breath. patient is having some nausea. She denies any urinary burning or frequency Review of Systems please refer to HPI otherwise unremarkable Past Medical History Past Medical History: Cancer, Diabetes Mellitus, Hypertension, Liver Disease, Myocardial Infarction (ID), Renal Disease Additional Past Medical History / Comment(s): Hepatocellular liver cancer with chemo immobilization-last time being 2017, ascities with paracentesis's may 2019, nonalcoholic liver cirrhosis, chronic pancytopenia, chronic elevated ammonia levels, hepatic encephalopathy, chronic elevated LFTs, chronic abdominal pain, stomach ulcer, diverticular disease with ileostomy, IDDM type II, iron anemia, CKD stage III, nonsustained vtach, UTI, high ammonia levels Last Myocardial Infarction Date:: unk History of Any Multi-Drug Resistant Organisms: MRSA, VRE Date of last positivie culture/infection: 07/22/19- VRE; 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 Past Anesthesia/Blood Transfusion Reactions: No Reported Reaction Past Psychological History: Anxiety, Depression Smoking Status: Former smoker Past Alcohol Use History: None Reported Past Drug Use History: None Reported - Past Family History Mother History Unknown: Yes Family Medical History: Congestive Heart Failure (CHF) Additional Family Medical History / Comment(s): Mother is 94 yrs old. Father Family Medical History: Chest Pain / Angina Additional Family Medical History / Comment(s): Father is . Medications and Allergies Home Medications Medication Instructions Recorded Confirmed Type RX: Omeprazole [PriLOSEC] 20 mg PO DAILY 10/23/18 11/06/19 History RX: Sucralfate [Carafate] 1 gm PO ACHS 10/23/18 11/06/19 History RX: Insulin Regular, Human 10 unit SQ AC-TID 10/24/18 11/06/19 History [NovoLIN R] RX: Cholecalciferol [Vitamin D3 2,000 unit PO DAILY 01/16/19 11/06/19 History (25 Mcg = 1000 Iu)] RX: Ferrous Sulfate [Iron (65 MG 325 mg PO BID 01/31/19 11/06/19 History Elemental)] RX: Morphine Sulfate [Ms Contin] 15 mg PO BID 05/15/19 11/06/19 History RX: Ondansetron Odt [Zofran ODT] 8 mg SL DAILY PRN 06/12/19 11/06/19 History RX: buPROPion HCL [Wellbutrin SR] 150 mg PO DAILY 06/12/19 11/06/19 History RX: clonazePAM [KlonoPIN] 0.5 mg PO BID PRN 06/12/19 11/06/19 History RX: Lactulose [Cephulac] 30 gm PO TID 07/22/19 11/06/19 History RX: Isosorbide Mononitrate ER 30 mg PO DAILY 30 Days #30 07/26/19 11/06/19 Rx [Imdur] tab.er.24h RX: Furosemide [Lasix] 40 mg PO DAILY 30 Days #30 tablet 08/07/19 11/06/19 Rx RX: Spironolactone [Aldactone] 50 mg PO DAILY 30 Days #30 tab 08/07/19 11/06/19 Rx RX: Dicyclomine [Bentyl] 10 mg PO DAILY 10/02/19 11/06/19 History RX: Insulin NPH Human Isophane 18 unit SQ AC-BID 10/02/19 11/06/19 History [NovoLIN N] RX: Metoprolol Tartrate [Lopressor] 6.25 mg PO DAILY tab 10/04/19 11/06/19 Rx Allergies Allergy/AdvReac Type Severity Reaction Status Date / Time amlodipine Allergy Rash/Hives Verified 11/06/19 13:17 oxycodone Allergy Rash/Hives Verified 11/06/19 13:17 Penicillins Allergy Rash/Hives Verified 11/06/19 13:17 hydromorphone [From Dilaudid] AdvReac Mild tactile Verified 11/06/19 13:17 disturbance GREG Inhibitors AdvReac Cough Verified 11/06/19 13:17 sodium dodecyclbenzene Allergy Rash/Hives Uncoded 11/06/19 13:17 sulfonate Physical Exam Vitals: Vital Signs Temp Pulse Pulse Resp BP BP Pulse Ox 11/07/19 05:01 99.9 F H 73 18 105/56 98 11/06/19 21:27 98.3 F 67 18 97/60 94 L 11/06/19 18:00 64 18 93/52 97 11/06/19 17:20 9 L 99 11/06/19 17:10 100 11/06/19 17:00 91/52 11/06/19 16:20 98/50 99 11/06/19 16:06 97 11/06/19 15:17 98.7 F 73 98/50 97 11/06/19 13:15 100.5 F H 76 18 102/55 96 Intake and Output 11/06/19 11/07/19 11/07/19 22:59 06:59 14:59 Intake Total 550 Balance 550 Intake: Intake, IV Titration 550 Amount Sodium Chloride 0.9% 1, 550 000 ml @ 50 mls/hr IV . Q20H [facility] Rx#:[id number] Other: Voiding Method Toilet # Voids 2 Weight 90.718 kg Results CBC & Chem 7: 11/07/19 07:08 11/07/19 07:08 Labs: Abnormal Lab Results - Last 24 Hours (Table) 11/06/19 11/06/19 11/06/19 Range/Units 14:24 14:24 14:24 RBC 3.10 L (3.80-5.40) m/uL Hgb (11.4-16.0) gm/dL Hct 32.8 L (34.0-46.0) % MCV 105.9 H (80.0-100.0) fL MCH 36.7 H (25.0-35.0) pg Plt Count 63 L (150-450) k/uL Lymphocytes # 0.8 L (1.0-4.8) k/uL Macrocytosis PT (9.0-12.0) sec INR (<1.2) Sodium 130 L (137-145) mmol/L Carbon Dioxide 21 L (22-30) mmol/L BUN 35 H (7-17) mg/dL Creatinine 1.59 H (0.52-1.04) mg/dL Glucose 158 H (74-99) mg/dL POC Glucose (mg/dL) (75-99) mg/dL Calcium 8.0 L (8.4-10.2) mg/dL Total Bilirubin 3.3 H (0.2-1.3) mg/dL AST 93 H (14-36) U/L ALT 63 H (4-34) U/L Alkaline Phosphatase 210 H (38-126) U/L Albumin 2.6 L (3.5-5.0) g/dL Ur Leukocyte Esterase Small H (Negative) Urine Bacteria Moderate H (None) /hpf Hyaline Casts 6 H (0-2) /lpf Urine Mucus Rare H (None) /hpf 11/06/19 11/06/19 11/07/19 Range/Units 14:24 20:36 07:08 RBC 2.91 L (3.80-5.40) m/uL Hgb 10.8 L (11.4-16.0) gm/dL Hct 31.4 L (34.0-46.0) % MCV 107.9 H (80.0-100.0) fL MCH 37.2 H (25.0-35.0) pg Plt Count 63 L (150-450) k/uL Lymphocytes # 0.6 L (1.0-4.8) k/uL Macrocytosis Marked A PT 14.6 H (9.0-12.0) sec INR 1.4 H (<1.2) Sodium (137-145) mmol/L Carbon Dioxide (22-30) mmol/L BUN (7-17) mg/dL Creatinine (0.52-1.04) mg/dL Glucose (74-99) mg/dL POC Glucose (mg/dL) 240 H (75-99) mg/dL Calcium (8.4-10.2) mg/dL Total Bilirubin (0.2-1.3) mg/dL AST (14-36) U/L ALT (4-34) U/L Alkaline Phosphatase (38-126) U/L Albumin (3.5-5.0) g/dL Ur Leukocyte Esterase (Negative) Urine Bacteria (None) /hpf Hyaline Casts (0-2) /lpf Urine Mucus (None) /hpf 11/07/19 11/07/19 Range/Units 07:08 07:15 RBC (3.80-5.40) m/uL Hgb (11.4-16.0) gm/dL Hct (34.0-46.0) % MCV (80.0-100.0) fL MCH (25.0-35.0) pg Plt Count (150-450) k/uL Lymphocytes # (1.0-4.8) k/uL Macrocytosis PT (9.0-12.0) sec INR (<1.2) Sodium 134 L (137-145) mmol/L Carbon Dioxide 21 L (22-30) mmol/L BUN 34 H (7-17) mg/dL Creatinine 1.41 H (0.52-1.04) mg/dL Glucose 146 H (74-99) mg/dL POC Glucose (mg/dL) 149 H (75-99) mg/dL Calcium 7.7 L (8.4-10.2) mg/dL Total Bilirubin (0.2-1.3) mg/dL AST (14-36) U/L ALT (4-34) U/L Alkaline Phosphatase (38-126) U/L Albumin (3.5-5.0) g/dL Ur Leukocyte Esterase (Negative) Urine Bacteria (None) /hpf Hyaline Casts (0-2) /lpf Urine Mucus (None) /hpf Thrombosis Risk Factor Assmnt - Choose All That Apply Any of the Below Risk Factors Present?: Yes Each Factor Represents 1 point: Obesity (BMI >25), Swollen legs (current) Other Risk Factors: Yes Each Risk Factor Represents 2 Points: Age 61-74 years Other congenital or acquired thrombophilia - If yes, enter type in comment: No Each Risk Factor Represents 5 Points: Major surgery lasting over 3 hours Thrombosis Risk Factor Assessment Total Risk Factor Score: 9 Thrombosis Risk Factor Assessment Level: High Risk Assessment and Plan Assessment: 1. Febrile illness. Chest x-ray negative for acute process. Leukocyte esterase small amount in urine noted. Urine and blood cultures ordered. Lactic acid ordered. Influenza negative. Will order stool for C. diff. Infectious disease has been consulted. 2. Acute kidney injury. Creatinine slightly elevated at 1.41 and bun 34. We'll hold Aldactone at this time 3. Moderate amount of abdominal ascites. Abdominal ultrasound completed showing cirrhosis. This appears to be a focal by by 5 cm lesion posterior right liver lobe and possible 1.2 cm lesion of liver lobe the setting of cirrhosis, HCC is not excluded. Mild to moderate abdominal pelvic ascites. Tenderness with guarding on the right upper quadrant. GI services have been consulted. 4. History of hepatocellular carcinoma 5. History of nonalcoholic liver cirrhosis 6. History of chronic kidney disease stage III 7. History of chronic elevated ammonia level secondary to hepatocellular carcinoma nonalcoholic liver cirrhosis. Patient maintained on lactulose 8. History of urine colonization with VRE 9. History of depression 10. 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 History of recurring abdominal ascites 12. Diabetes mellitus type 2. Home meds resumed 2. History of depression and anxiety home meds resumed DVT prophylaxis SCDs due to chronic thrombus cytopenia. GI prophylaxis [facility] GI and infectious disease service is consulted Blood and urine cultures ordered Time with Patient: Greater than 30 (Greater than 60% of the total time spent in counseling and coordination of care. I performed an examination of the patient and discussed their management with the Nurse Practitioner. I have reviewed the Nurse Practitioner's notes and agree with the documented findings and plan of care)
[2019-11-07] MEDS ORDERED: LEVOFLOXACIN 500MG-D5W PMX 500 MG in DEXTROSE/WATER 1 100ML.BAG IVPB ONE (11:00)
[2019-11-07 11:06] LABS: Amylase 42 U/L (30-110)
[2019-11-07 11:45] LABS: Glucose,Whole Blood 160 mg/dL (75-99)
--- NOTE | 2019-11-07 12:02 | CONS ---
CONSULTATION DATE OF SERVICE: 11/07/2019 REASON FOR CONSULTATION: Abdominal pain and fever. HISTORY OF PRESENT ILLNESS: The patient is a 74-year-old pleasant white female admitted to the hospital with fever for the last one week duration. The patient has history of cirrhosis of the liver secondary to nonalcoholic fatty liver disease with intermittent ascites. She started noticing fever for the last 4 days and yesterday it was 103.8 and hence she came into the emergency room. She denies any upper respiratory infection. She denies any nausea, vomiting, rectal bleeding, melena. She does have longstanding history of chronic abdominal pain of several months' duration which has been she thinks has more discomfort in the epigastric area. Patient is known to have liver cirrhosis complicated by hepatocellular carcinoma for which she underwent treatment at [facility]. During this hospitalization, she did have an of the abdomen that showed evidence of moderate amount of ascites. Also there was a 5 cm x 5 cm round hypoechoic lesion in the posterior right lobe of the liver consistent with known hepatocellular carcinoma. PAST MEDICAL HISTORY: Her past medical history is significant for liver cirrhosis complicated with hepatocellular carcinoma, history of ascites, hypertension, diabetes mellitus, coronary artery disease, status post GA in the past, chronic kidney disease, paracentesis in May of 2019. PAST SURGICAL HISTORY: Appendectomy, , colostomy for sigmoid diverticulitis, cholecystectomy, hysterectomy, tonsillectomy, chemoembolization for the hepatocellular carcinoma at [facility] in 2018. MEDICATIONS: Medications at home include insulin, metoprolol, Bentyl, Aldactone, Lasix, Imdur, Cephulac, Klonopin, Wellbutrin, Zofran, iron, morphine, insulin, Carafate and Prilosec. ALLERGIES: Allergies to PENICILLIN, AMLODIPINE, OXYCODONE, GREG INHIBITOR. SOCIAL HISTORY: No smoking. No alcohol use. FAMILY HISTORY: Unremarkable. REVIEW OF SYSTEMS: CARDIOPULMONARY: No chest pain, shortness of breath. GENITOURINARY: No dysuria or hematuria. MUSCULOSKELETAL: Back pain. NEUROLOGY: Unremarkable. PSYCHIATRIC: Unremarkable. ENT/VISION: Unremarkable. CONSTITUTIONAL: Fever for the last 4 days. No chills or night sweats. HEMATOLOGY: Unremarkable. PHYSICAL EXAMINATION: On physical examination, she appears comfortable. No apparent distress. T-max was 99.9. Blood pressure 105/56, pulse rate 73. HEENT examination unremarkable. Conjunctivae pink. Sclerae anicteric. Oral cavity no lesions. NECK: No JVD or lymph node enlargement. CHEST: Clear to auscultation. HEART: Regular rate and rhythm. ABDOMEN: Soft, it was slightly tender in the epigastric area, was slightly distended. Colostomy bag in place which appeared normal. EXTREMITIES: No pedal edema. SKIN: No rashes. NEURO: Alert and oriented x3. No focal deficits. LABS: Labs done today, WBC 8.3, hemoglobin 10.8, platelets normal. Basic metabolic panel is within normal limits. BUN is 34, creatinine 1.41. Plasma lactic acid is 3.2. AST and ALT 93 and 63 respectively. T bilirubin 3.3 and ammonia 12. Alkaline phosphatase 210. Urinalysis was negative. IMPRESSION: 1. This is a lady who presents with a history of cirrhosis of the liver and ascites who presents to the hospital with fever for the last 4 days duration. She continues to have persistent epigastric discomfort and ultrasound did show evidence of moderate ascites and possibility of spontaneous bacterial peritonitis needs to be considered. Her urinalysis did show small leukocyte esterase. 2. Acute kidney injury. Diuretics currently are on hold. 3. Cirrhosis of the liver diagnosed 2 years ago, complicated with hepatocellular carcinoma, status post chemoembolization at [facility] last year. Recent ultrasound did show a 5 x 5 cm lesion in the right liver lobe as well as another small 1.2 cm lesion. RECOMMENDATIONS: 1. Large volume paracentesis for diagnostic and therapeutic purposes and fluid requested for cell count and cytology. 2. We will start her on empiric antibiotics. Since she is allergic to PENICILLIN, we will avoid cephalosporins and will start her on Levaquin 500 mg daily. 3. ID consultation has been already requested by the primary service. 4. Repeat labs in the morning. 5. Continue with oral lactulose. 6. We will follow with you closely during her hospital stay. Thank you for this consultation. MMODL / IJN: [id number] /
[2019-11-07] MEDS: SODIUM CHLORIDE 0.9% 1,000 ML IV SCH (13:17)
--- NOTE | 2019-11-07 13:49 | US ---
EXAMINATION TYPE: US paracentesis abd w/image DATE OF EXAM: 11/07/2019 COMPARISON: NONE HISTORY: Ascites. PROCEDURE: Maximal barrier technique was utilized. The skin overlying a suitable pocket of fluid was localized with ultrasound and the overlying skin was prepped and draped. Ultrasound was utilized with sterile technique. Lidocaine was used for local anesthesia and a skin jenny made with a scalpel. Catheter was advanced under direct ultrasound guidance into a suitable pocket of fluid and approximately 3 liters of serous fluid were removed. Catheter was withdrawn and hemostasis achieved. There is no immediate complication; the patient is discharged in stable condition. IMPRESSION: STATUS POST ULTRASOUND GUIDED PARACENTESIS FOR PALLIATION OF ASCITES. THIS PROCEDURE WA S PERFORMED BY THE UNDERSIGNED.
[2019-11-07] MEDS: MORPHINE SULFATE 4 MG/ML SYRINGE IV PRN (16:00)
[2019-11-07 16:29] LABS: Appearance,BF Clear; Color,BF Yellow; Nucleated Cells, Body Fluid 33 /uL; RBC, Body Fluid 154 /uL
[2019-11-07 16:34] LABS: Mononuclear WBC,Body Fluid 99 %; Polynuclear WBC,Body Fluid 1 %; Total Cells Counted,Body Fluid 100
[2019-11-07 17:18] LABS: Glucose,Whole Blood 178 mg/dL (75-99)
[2019-11-07 19:59] LABS: Glucose,Whole Blood 138 mg/dL (75-99)
[2019-11-07 21:15] LABS: Total Protein, Body Fluid 1080 mg/dL
[2019-11-08 07:07] LABS: Glucose,Whole Blood 195 mg/dL (75-99)
[2019-11-08 07:20] LABS: Basophils % (A) 0 %; Eosinophils # (A) 0.1 k/uL (0-0.7); Eosinophils % (A) 1 %; HCT 29.8 % (34.0-46.0); Lymphocytes # (A) 0.4 k/uL (1.0-4.8); Lymphocytes % (A) 7 %; MCH 36.9 pg (25.0-35.0); MCHC 33.5 g/dL (31.0-37.0); MCV 110.1 fL (80.0-100.0); Macrocytosis Marked; Monocytes # (A) 0.3 k/uL (0-1.0); Monocytes % (A) 5 %; Neutrophils # (A) 5.4 k/uL (1.3-7.7); Neutrophils % (A) 85 %; RBC 2.71 m/uL (3.80-5.40); RDW 14.6 % (11.5-15.5); WBC 6.3 k/uL (3.8-10.6)
[2019-11-08 07:33] LABS: Albumin 2.2 g/dL (3.5-5.0); Calcium 8.1 mg/dL (8.4-10.2); Potassium 5.2 mmol/L (3.5-5.1); Total Bilirubin 2.6 mg/dL (0.2-1.3); Total Protein 5.3 g/dL (6.3-8.2)
[2019-11-08 07:45] LABS: Platelet Count 65 k/uL (150-450)
[2019-11-08] MEDS: IOPAMIDOL CONTRAST (ORAL USE) VIAL PO PRN ×2 (08:37→09:53)
[2019-11-08] MEDS: LACTULOSE 20 GM/30 ML CUP PO SCH ×3 (08:56→20:00)
[2019-11-08] MEDS: ISOSORBIDE MONONITRATE ER 30 MG TAB.ER.24H PO SCH (08:56)
[2019-11-08] MEDS: METOPROLOL TARTRATE 12.5 MG TAB PO SCH (08:56)
[2019-11-08] MEDS: buPROPion SR 150 MG TABLET.ER PO SCH (08:58)
[2019-11-08] MEDS: PANTOPRAZOLE 40 MG TABLET PO SCH (08:58)
[2019-11-08] MEDS: SUCRALFATE 1 GM TAB PO SCH ×4 (08:58→19:59)
[2019-11-08] MEDS: CHOLECALCIFEROL 1,000 UNIT TAB PO SCH (08:59)
[2019-11-08] MEDS: FUROSEMIDE 40 MG TAB PO SCH (08:59)
[2019-11-08] MEDS: FERROUS SULFATE 325 MG TAB PO SCH ×2 (09:00→19:58)
[2019-11-08] MEDS: DICYCLOMINE 10 MG CAP PO SCH (09:00)
[2019-11-08] MEDS: MORPHINE SULFATE ER 15 MG TABLET PO SCH ×2 (09:15→19:59)
[2019-11-08] MEDS: INSULIN REGULAR 100 UNIT/ML VIAL SQ SCH ×3 (09:17→17:42)
[2019-11-08] MEDS: INSULIN NPH 300 UNIT/3 ML VIAL SQ SCH ×2 (09:18→17:42)
--- NOTE | 2019-11-08 09:31 | P.CONS ---
History of Present Illness - Reason for Consult Consult date: 11/07/19 Fever Requesting physician: Artemio Lea - Chief Complaint Fever 2 days - History of Present Illness The patient is a 74 year old female presenting to the ER at [facility] yesterday afternoon with chief complaints of fever apparently has symptom has been going on for the last 2 days patient to me complaining of low-grade fever and some chills she also had some respiratory symptoms of cough which has been nonproductive and some nasal congestion the patient also complaining of abdominal distention and some diffuse abdominal pain more of a dull aching intensity for 5-10 and no radiation patient has been nauseated but no vomiting and denies having any diarrhea with this symptom and the patient was evaluated by the ER physician on arrival to the ER the patient did have a fever 100.7 subsequently spiked a fever of 101-2F, the patient was n ot tachycardic and white count was normal urine was negative the patient did have a negative influenza serology, the patient's x-ray was negative for any acute infiltrate patient was started on Levaquin admitted to the hospital infectious disease was consulted for further recommendation regarding antibiotic therapy Review of Systems Positive points have been mentioned in history of present illness as well as systems are negative Past Medical History Past Medical History: Cancer, Diabetes Mellitus, Hypertension, Liver Disease, Myocardial Infarction (VT), Renal Disease Additional Past Medical History / Comment(s): Hepatocellular liver cancer with chemo immobilization-last time being 2017, ascities with paracentesis's may 2019, nonalcoholic liver cirrhosis, chronic pancytopenia, chronic elevated a mmonia levels, hepatic encephalopathy, chronic elevated LFTs, chronic abdominal pain, stomach ulcer, diverticular disease with ileostomy, IDDM type II, iron anemia, CKD stage III, nonsustained vtach, UTI, high ammonia levels Last Myocardial Infarction Date:: unk History of Any Multi-Drug Resistant Organisms: MRSA, 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; 12/30/18-MRSA MDRO Source:: Urine VRE & MRSA Past Surgical History: Appendectomy, Bowel Resection, Section, Cholecys tectomy, Hysterectomy, Tonsillectomy Additional Past Surgical History / Comment(s): Chemo immobilizations, liver biopsies, paracentesis, bowel resection d/t diverticulitis/ileostomy, R rotator cuff repair, carpal tunnel release-laterality unknown. Past Anesthesia/Blood Transfusion Reactions: No Reported Reaction Past Psychological History: Anxiety, Depression Smoking Status: Former smoker Past Alcohol Use History: None Reported Past Drug Use History: None Reported - Past Family History Mother History Unknown: Yes Family Medical History: Congestive Heart Failure (CHF) Additional Family Medical History / Comment(s): Mother is 94 yrs old. Father Family Medical History: Chest Pain / Angina Additional Family Medical History / Comment(s): Father is . Medications and Allergies Home Medications Medication Instructions Recorded Confirmed Type Omeprazole [PriLOSEC] 20 mg PO DAILY 10/23/18 11/06/19 History Sucralfate [Carafate] 1 gm PO ACHS 10/23/18 11/06/19 History Insulin Regular, Human [NovoLIN R] 10 unit SQ AC-TID 10/24/18 11/06/19 History Cholecalciferol [Vitamin D3 (25 2,000 unit PO DAILY 01/16/19 11/06/19 History Mcg = 1000 Iu)] Ferrous Sulfate [Iron (65 MG 325 mg PO BID 01/31/19 11/06/19 History Elemental)] Morphine Sulfate [Ms Contin] 15 mg PO BID 05/15/19 11/06/19 History Ondansetron Odt [Zofran ODT] 8 mg SL DAILY PRN 06/12/19 11/06/19 History buPROPion HCL [Wellbutrin SR] 150 mg PO DAILY 06/12/19 11/06/19 History clonazePAM [KlonoPIN] 0.5 mg PO BID PRN 06/12/19 11/06/19 History Lactulose [Cephulac] 30 gm PO TID 07/22/19 11/06/19 History Isosorbide Mononitrate ER [Imdur] 30 mg PO DAILY 30 Days #30 07/26/19 11/06/19 Rx tab.er.24h Furosemide [Lasix] 40 mg PO DAILY 30 Days #30 tablet 08/07/19 11/06/19 Rx Spironolactone [Aldactone] 50 mg PO DAILY 30 Days #30 tab 08/07/19 11/06/19 Rx Dicyclomine [Bentyl] 10 mg PO DAILY 10/02/19 11/06/19 History Insulin NPH Human Isophane 18 unit SQ AC-BID 10/02/19 11/06/19 History [NovoLIN N] Metoprolol Tartrate [Lopressor] 6.25 mg PO DAILY tab 10/04/19 11/06/19 Rx Allergies Allergy/AdvReac Type Severity Reaction Status Date / Time amlodipine Allergy Rash/Hives Verified 11/06/19 13:17 oxycodone Allergy Rash/Hives Verified 11/06/19 13:17 Penicillins Allergy Rash/Hives Verified 11/06/19 13:17 hydromorphone [From Dilaudid] AdvReac Mild tactile Verified 11/06/19 13:17 disturbance GREG Inhibitors AdvReac Cough Verified 11/06/19 13:17 sodium dodecyclbenzene Allergy Rash/Hives Uncoded 11/06/19 13:17 sulfonate Physical Exam Vitals: Vital Signs Temp Pulse Pulse Resp BP Pulse Ox 11/08/19 05:00 98.8 F 69 16 101/60 97 11/07/19 22:18 100.7 F H 11/07/19 20:35 98.8 F 67 16 91/49 99 11/07/19 13:03 99.9 F H 11/07/19 12:45 66 16 101/51 97 11/07/19 12:44 101.3 F H 65 17 107/47 97 11/07/19 12:22 64 16 93/51 97 11/07/19 12:11 69 16 94/47 96 11/07/19 10:35 99 F Intake and Output 11/07/19 11/08/19 11/08/19 22:59 06:59 14:59 Intake Total 590 590 Balance 590 590 Intake: Oral 590 590 Other: Voiding Method Toilet Toilet # Voids 2 GENERAL DESCRIPTION: Elderly female lying in bed, no distress. No tachypnea or accessory muscle of respiration use. HEENT: Shows Pallor , no scleral icterus. Oral mucous membrane is dry. No pharyngeal erythema or thrush NECK: Trachea central, no thyromegaly. LUNGS: Unlabored breathing. Clear to auscultation anteriorly. No wheeze or crackle. HEART: S1, S2, regular rate and rhythm. No loud murmur ABDOMEN: Soft, mild distention and minimal lower abdominal tenderness , guarding or rigidity, no organomegaly EXTREMITIES: No edema of feet. SKIN: No rash, no masses palpable. NEUROLOGICAL: The patient is awake, alert, oriented x3, mood and affect normal. Results CBC & Chem 7: 11/08/19 06:45 11/08/19 06:45 Labs: Abnormal Lab Results - Last 24 Hours (Table) 11/07/19 11/07/19 11/07/19 Range/Units 09:45 11:43 13:48 RBC (3.80-5.40) m/uL Hgb (11.4-16.0) gm/dL Hct (34.0-46.0) % MCV (80.0-100.0) fL MCH (25.0-35.0) pg Plt Count (150-450) k/uL Lymphocytes # (1.0-4.8) k/uL Macrocytosis Sodium (137-145) mmol/L Potassium (3.5-5.1) mmol/L Chloride (98-107) mmol/L Carbon Dioxide (22-30) mmol/L BUN (7-17) mg/dL Creatinine (0.52-1.04) mg/dL Glucose (74-99) mg/dL POC Glucose (mg/dL) 160 H (75-99) mg/dL Plasma Lactic Acid Carlos 3.2 H* 2.2 H* (0.7-2.0) mmol/L Calcium (8.4-10.2) mg/dL Total Bilirubin (0.2-1.3) mg/dL AST (14-36) U/L ALT (4-34) U/L Alkaline Phosphatase (38-126) U/L C-Reactive Protein (<10.0) mg/L Total Protein (6.3-8.2) g/dL Albumin (3.5-5.0) g/dL 11/07/19 11/07/19 11/08/19 Range/Units 17:17 19:57 06:45 RBC 2.71 L (3.80-5.40) m/uL Hgb 10.0 L (11.4-16.0) gm/dL Hct 29.8 L (34.0-46.0) % MCV 110.1 H (80.0-100.0) fL MCH 36.9 H (25.0-35.0) pg Plt Count 65 L (150-450) k/uL Lymphocytes # 0.4 L (1.0-4.8) k/uL Macrocytosis Marked A Sodium (137-145) mmol/L Potassium (3.5-5.1) mmol/L Chloride (98-107) mmol/L Carbon Dioxide (22-30) mmol/L BUN (7-17) mg/dL Creatinine (0.52-1.04) mg/dL Glucose (74-99) mg/dL POC Glucose (mg/dL) 178 H 138 H (75-99) mg/dL Plasma Lactic Acid Carlos (0.7-2.0) mmol/L Calcium (8.4-10.2) mg/dL Total Bilirubin (0.2-1.3) mg/dL AST (14-36) U/L ALT (4-34) U/L Alkaline Phosphatase (38-126) U/L C-Reactive Protein (<10.0) mg/L Total Protein (6.3-8.2) g/dL Albumin (3.5-5.0) g/dL 11/08/19 11/08/19 Range/Units 06:45 06:58 RBC (3.80-5.40) m/uL Hgb (11.4-16.0) gm/dL Hct (34.0-46.0) % MCV (80.0-100.0) fL MCH (25.0-35.0) pg Plt Count (150-450) k/uL Lymphocytes # (1.0-4.8) k/uL Macrocytosis Sodium 133 L (137-145) mmol/L Potassium 5.2 H (3.5-5.1) mmol/L Chloride 108 H (98-107) mmol/L Carbon Dioxide 20 L (22-30) mmol/L BUN 34 H (7-17) mg/dL Creatinine 1.55 H (0.52-1.04) mg/dL Glucose 197 H (74-99) mg/dL POC Glucose (mg/dL) 195 H (75-99) mg/dL Plasma Lactic Acid Carlos (0.7-2.0) mmol/L Calcium 8.1 L (8.4-10.2) mg/dL Total Bilirubin 2.6 H (0.2-1.3) mg/dL AST 53 H (14-36) U/L ALT 40 H (4-34) U/L Alkaline Phosphatase 168 H (38-126) U/L C-Reactive Protein 83.0 H (<10.0) mg/L Total Protein 5.3 L (6.3-8.2) g/dL Albumin 2.2 L (3.5-5.0) g/dL Microbiology - Last 24 Hours (Table) 11/07/19 12:45 Gram Stain - Final Ascites Fluid Body Fluid Culture - Final 11/07/19 12:45 Anaerobic Culture - Preliminary Ascites Fluid 11/07/19 11:40 Urine Culture - Preliminary Urine,Voided Assessment and Plan Assessment: 1-patient admitted to the hospital with fever of 2 days' duration in this patient who did have both respiratory as well as abdominal symptoms however chest x-ray has been negative for any pneumonia patient did have ascites with concern for possible SBP vs possible other intra-abdominal sources and only to cover for the integrity gram-negative pathogen to be the likely pathogen responsible for this fever and infection 2-patient with penicillin allergy that will limit the number of antibiotic safety use but no history of anaphylaxis (1) Fever Current Visit: Yes Status: Acute Code(s): R50.9 - FEVER, UNSPECIFIED SNOMED Code(s): 266916885 Plan: 1-we will add Rocephin 2 g IV piggyback daily 2-obtain CT of abdominal pelvis with oral contrast only We will follow on her clinical condition and culture to further adjust medication if needed thank you for this consultation and will follow this patient along with you Time with Patient: Greater than 30
[2019-11-08] MEDS: SODIUM CHLORIDE 0.9% 1,000 ML IV SCH (11:02)
[2019-11-08 11:34] LABS: Glucose,Whole Blood 173 mg/dL (75-99)
--- NOTE | 2019-11-08 11:48 | CT ---
EXAMINATION TYPE: CT abdomen pelvis wo con DATE OF EXAM: 11/08/2019 COMPARISON: 05/29/2019 HISTORY: Abdominal pain and fever CT DLP: 886.1 mGycm Examination of the solid and hollow viscera is limited given the lack of contrast. GI contrast was ad ministered. FINDINGS: LUNG BASES: Left lower lobe infiltrate may reflect pneumonia. Correlate clinically. Small pleural eff usion noted. LIVER/GB: The gallbladder surgically absent. No space-occupying hepatic lesion. PANCREAS: Fatty atrophic changes of the pancreas however I cannot exclude pancreatitis involving the head of the pancreas with edema within the small bowel mesentery. Correlate clinically with amylase a nd lipase. SPLEEN: No evidence for splenomegaly. No intrasplenic lesions seen. Multiple perisplenic varices are noted. ADRENALS: No adrenal nodules identified. No evidence for thickening. KIDNEYS: No evidence for renal mass. No nephrolithiasis. No hydronephrosis. BOWEL: Right lower quadrant ostomy with parastomal hernia. No definite evidence for strangulation. Co ntrast is noted within nondilated small bowel up to the right hemicolon. No evidence for obstructive change. There is edema within the small bowel mesentery of uncertain etiology. There is wall thickeni ng of the transverse duodenum and stomach. Correlate for duodenitis Lymph nodes: No evidence for adenopathy greater than 1 cm. Abdominal aorta: Atheromatous changes seen. No evidence for aneurysm. Genital organs: No significant abnormality. Other: Four-quadrant ascites is again noted moderate in degree. IMPRESSION: 1.I cannot exclude pancreatitis involving the head of the pancreas with edema within the small bowel mesentery. Correlate clinically with amylase and lipase. 2. Adjacent thickening of the duodenum and stomach. 3. Four-quadrant ascites. 4. Splenic varices. 5. Left lower lobe pneumonia suspected.
[2019-11-08] MEDS: ONDANSETRON 4 MG/2 ML VIAL IVP PRN (12:07)
[2019-11-08] MEDS: MORPHINE SULFATE 4 MG/ML SYRINGE IV PRN (12:13)
[2019-11-08] MEDS: LEVOFLOXACIN 250MG-D5W PMX 250 MG in DEXTROSE/WATER 1 50ML.BAG IVPB SCH (12:37)
--- NOTE | 2019-11-08 13:51 | PN ---
PROGRESS NOTE DATE OF DICTATION: November 08, 2019 The patient is a 74-year-old pleasant white female admitted to hospital with fever for the last 5 days duration. She has history of chronic abdominal pain. She has history of nonalcoholic cirrhosis of the liver with portal hypertension and ascites. Because of clinical suspicion for spontaneous bacterial peritonitis, she was started on broad- spectrum antibiotics and underwent large-volume paracentesis yesterday. The analysis of the fluid did not show any evidence of spontaneous bacterial peritonitis. In any event, she is doing much better today. In the meantime, today she is complaining of coughing and some productive sputum this morning. This morning, she feels somewhat better. Abdominal pain is improving. No nausea, vomiting. On a clear liquid diet, tolerating well. PHYSICAL EXAMINATION: She appears comfortable. No apparent distress. VITAL SIGNS: Stable. T-max 100. Temperature today is 98. HEENT examination unremarkable. Conjunctivae pink. Sclerae anicteric. Oral cavity no lesions. Neck no JVD or lymph node enlargement. Chest: Clear to auscultation. HEART: Regular rate and rhythm. ABDOMEN: Soft. There was mild tenderness in the epigastric area. Colostomy in place. Extremities: No pedal edema. Skin no rashes. NEUROLOGIC: Alert and oriented x3. No focal deficits. LABS: From today WBC 6.8, hemoglobin 10, platelets 65,000. T-bilirubin is 2.6. AST and ALT of 53 and 40 respectively, and alkaline phosphatase is 163. IMPRESSION: 1. Fever for the last 5-6 days duration and now presents with upper respiratory symptoms, probably dealing with acute bronchitis. 2. Ascites/fever. The patient was started on empiric antibiotics with Rocephin and Levaquin yesterday for possible spontaneous bacterial peritonitis. The patient did have a paracentesis done and fluid analysis did not show any evidence of spontaneous bacterial peritonitis. Cultures are still pending. 3. Hepatocellular carcinoma diagnosed a year ago. Recent ultrasound did show evidence of 5 cm lesion in the liver. 4. Acute kidney injury on chronic kidney disease. 5. Mild pancytopenia. RECOMMENDATIONS: 1. Continue with broad-spectrum antibiotics. 2. Repeat labs in the morning. 3. Await results of CT of the abdomen and pelvis that was ordered for today. 4. Advance diet as tolerated. Thank you for this consultation. MMODL / IJN: [id number] /
[2019-11-08 17:17] LABS: Glucose,Whole Blood 144 mg/dL (75-99)
--- NOTE | 2019-11-08 20:04 | P.PN ---
Subjective Progress Note Date: 11/08/19 This is a 74-year-old female patient who presented with complaints of fever that started on Wednesday progressively increased over the past few days. Patient reports she's had some increased loose stools out of ostomy. Patient also complains of mild upper respiratory symptoms. Patient denies any nausea or vomiting. Patient denies cough or any open wounds Patient has a known past medical history of hepatocellular carcinoma. Additional medical history includes chronic ascites, nonalcoholic liver cirrhosis, diabetes mellitus, hypertension, liver, myocardial infarction, chronic renal disease chronic abdominal pain, diverticular disease with ileostomy, MRSA and VRE. Influenza negative. Leukocyte Estrace. Small amount of leukocyte Estrace noted to urine. Urine and blood cultures have been ordered. Chest x-ray completed showing no evidence for acute pulmonary disease. Abdominal ultrasound completed showing cirrhosis. There appears to be a focal 5 x 5 cm lesion posterior right liver lobe and possible 1.2 cm second lesion in the left liver lobe the setting cirrhosis HCC is not excluded. Mild to moderate abdominal pelvic ascites. Tenderness we'll scarring along the right upper quadrant. At this time blood, urine and lactic acid have been ordered stool for C. diff ordered. Infectious disease consulted. Dr. Figueroa also consulted for possible paracentesis. Patient denies any chest pain or shortness of breath. patient is having some nausea. She denies any urinary burning or frequency On 11/08/2019 patient was seen and examined on the medical floor she is alert and oriented 3 in no apparent distress there is no fever or chills no headache or dizziness no chest pain no shortness of breath no cough no nausea or vomiting no abdominal pain no diarrhea no burning was urination no frequency or urgency and no hematuria Objective - Vital Signs Vital signs: Vital Signs Temp 99.1 F 11/08/19 16:35 Pulse 65 11/08/19 16:00 Resp 18 11/08/19 16:00 BP 96/59 11/08/19 11:31 Pulse Ox 99 11/08/19 11:31 Intake & Output 11/08/19 11/08/19 11/09/19 06:59 18:59 06:59 Intake Total 1180 1420 360 Balance 1180 1420 360 Intake: Intake, IV Titration 700 Amount Levofloxacin 250Mg-D5w 50 Pmx 250 mg In Dextrose/ Water 1 50ml.bag @ 50 mls /hr IVPB Q24H [facility] Rx#: [id number] Sodium Chloride 0.9% 1, 600 000 ml @ 50 mls/hr IV . Q20H [facility] Rx#:[id number] cefTRIAXone 2 gm In 50 Sodium Chloride 0.9% 50 ml @ 100 mls/hr IVPB Q24HR [facility] Rx#:[id number] Oral 1180 720 360 Other: Voiding Method Toilet Toilet # Voids 2 4 - Exam In general patient is alert and oriented in no apparent distress HEENT head normocephalic and atraumatic Neck is supple no JVD no goiter no lymphadenopathy Chest exam reveals a few scattered crackles no wheezing Cardiac exam reveals regular heart sounds S1 and S2 no gallops no murmurs Abdomen is soft nontender no organomegaly distended no palpable masses with normal bowel sounds Extremity exam reveals mild edema no cyanosis or clubbing Neurological examination reveals no gross focal deficit - Labs CBC & Chem 7: 11/08/19 06:45 11/08/19 06:45 Labs: Abnormal Lab Results - Last 24 Hours (Table) 11/08/19 11/08/19 11/08/19 Range/Units 06:45 06:45 06:58 RBC 2.71 L (3.80-5.40) m/uL Hgb 10.0 L (11.4-16.0) gm/dL Hct 29.8 L (34.0-46.0) % MCV 110.1 H (80.0-100.0) fL MCH 36.9 H (25.0-35.0) pg Plt Count 65 L (150-450) k/uL Lymphocytes # 0.4 L (1.0-4.8) k/uL Macrocytosis Marked A Sodium 133 L (137-145) mmol/L Potassium 5.2 H (3.5-5.1) mmol/L Chloride 108 H (98-107) mmol/L Carbon Dioxide 20 L (22-30) mmol/L BUN 34 H (7-17) mg/dL Creatinine 1.55 H (0.52-1.04) mg/dL Glucose 197 H (74-99) mg/dL POC Glucose (mg/dL) 195 H (75-99) mg/dL Calcium 8.1 L (8.4-10.2) mg/dL Total Bilirubin 2.6 H (0.2-1.3) mg/dL AST 53 H (14-36) U/L ALT 40 H (4-34) U/L Alkaline Phosphatase 168 H (38-126) U/L C-Reactive Protein 83.0 H (<10.0) mg/L Total Protein 5.3 L (6.3-8.2) g/dL Albumin 2.2 L (3.5-5.0) g/dL 11/08/19 11/08/19 Range/Units 11:31 17:11 RBC (3.80-5.40) m/uL Hgb (11.4-16.0) gm/dL Hct (34.0-46.0) % MCV (80.0-100.0) fL MCH (25.0-35.0) pg Plt Count (150-450) k/uL Lymphocytes # (1.0-4.8) k/uL Macrocytosis Sodium (137-145) mmol/L Potassium (3.5-5.1) mmol/L Chloride (98-107) mmol/L Carbon Dioxide (22-30) mmol/L BUN (7-17) mg/dL Creatinine (0.52-1.04) mg/dL Glucose (74-99) mg/dL POC Glucose (mg/dL) 173 H 144 H (75-99) mg/dL Calcium (8.4-10.2) mg/dL Total Bilirubin (0.2-1.3) mg/dL AST (14-36) U/L ALT (4-34) U/L Alkaline Phosphatase (38-126) U/L C-Reactive Protein (<10.0) mg/L Total Protein (6.3-8.2) g/dL Albumin (3.5-5.0) g/dL Microbiology - Last 24 Hours (Table) 11/07/19 11:40 Urine Culture - Preliminary Urine,Voided Group D Enterococcus 11/07/19 08:44 Blood Culture - Preliminary Blood No Growth after 24 hours 11/07/19 12:45 Gram Stain - Final Ascites Fluid Body Fluid Culture - Preliminary 11/07/19 12:45 Anaerobic Culture - Preliminary Ascites Fluid Assessment and Plan Plan: 1. Febrile illness. Chest x-ray negative for acute process. Leukocyte esterase small amount in urine noted. Urine and blood cultures ordered. Lactic acid ordered. Influenza negative. Will order stool for C. diff. Infectious disease has been consulted. 2. Acute kidney injury. Creatinine slightly elevated at 1.41 and bun 34. We'll hold Aldactone at this time 3. Moderate amount of abdominal ascites. Abdominal ultrasound completed showing cirrhosis. This appears to be a focal by by 5 cm lesion posterior right liver lobe and possible 1.2 cm lesion of liver lobe the setting of cirrhosis, HCC is not excluded. Mild to moderate abdominal pelvic ascites. Tenderness with guarding on the right upper quadrant. GI services have been consulted. 4. History of hepatocellular carcinoma 5. History of nonalcoholic liver cirrhosis 6. History of chronic kidney disease stage III 7. History of chronic elevated ammonia level secondary to hepatocellular carcinoma nonalcoholic liver cirrhosis. Patient maintained on lactulose 8. History of urine colonization with VRE 9. History of depression 10. 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 History of recurring abdominal ascites 12. Diabetes mellitus type 2. Home meds resumed 2. History of depression and anxiety home meds resumed DVT prophylaxis SCDs due to chronic thrombus cytopenia. GI prophylaxis Protonix GI and infectious disease service is consulted Blood and urine cultures ordered
--- NOTE | 2019-11-08 21:10 | PN ---
PROGRESS NOTE DATE OF SERVICE: 11/08/2019. REASON FOR FOLLOWUP VISIT: Fever. INTERVAL HISTORY: The patient did have a low-grade fever of 100.7 last night. However, the patient is afebrile since then. The patient is breathing comfortably. The patient did have minimal cough. No more sputum production. No chest pain. Still complaining of pain to the right lower abdominal area. No nausea, no vomiting. PHYSICAL EXAMINATION: Blood pressure 101/60 with a pulse of 69, temperature 98.8. She is 97% on room air. General description is an elderly female up in the chair in no distress. Respiratory system: Unlabored breathing with decreased breath sounds in the bases. No wheeze. Heart S1, S2. Regular rate and rhythm. ABDOMEN: Soft, mildly tender on the left colostomy site. EXTREMITIES: No edema of the feet. LABS: Hemoglobin is 10 with white count 6.3, BUN of 24, creatinine 1.55. Urine with group D Enterococcus. Though UA was negative. CT abdominal and pelvis concern for possible pancreatitis and left lower lobe pneumonia. DIAGNOSTIC IMPRESSION AND PLAN: Patient with fever, source is likely left lower lobe pneumonia. The patient did have respiratory symptoms. Her pain is mostly in the lower abdominal area of the epigastrium which could not be typical with pancreatitis. Amylase and lipase will be checked. The patient is covered with Rocephin and Levaquin to continue and monitor clinical course closely. MMODL / IJN: [id number] /
[2019-11-08 22:02] LABS: Glucose,Whole Blood 246 mg/dL (75-99)
[2019-11-08] MEDS: IBUPROFEN 400 MG TAB PO PRN (22:55)
[2019-11-09 07:14] LABS: Albumin, Fluid Source Ascites
[2019-11-09 07:15] LABS: Glucose,Whole Blood 189 mg/dL (75-99)
[2019-11-09] MEDS: buPROPion SR 150 MG TABLET.ER PO SCH (08:24)
[2019-11-09] MEDS: ISOSORBIDE MONONITRATE ER 30 MG TAB.ER.24H PO SCH (08:24)
[2019-11-09] MEDS: DICYCLOMINE 10 MG CAP PO SCH (08:24)
[2019-11-09] MEDS: CHOLECALCIFEROL 1,000 UNIT TAB PO SCH (08:24)
[2019-11-09] MEDS: SUCRALFATE 1 GM TAB PO SCH ×4 (08:24→20:09)
[2019-11-09] MEDS: FERROUS SULFATE 325 MG TAB PO SCH ×2 (08:24→20:09)
[2019-11-09] MEDS: METOPROLOL TARTRATE 12.5 MG TAB PO SCH (08:24)
[2019-11-09] MEDS: MORPHINE SULFATE ER 15 MG TABLET PO SCH ×2 (08:25→20:09)
[2019-11-09] MEDS: TORSEMIDE 20 MG TAB PO SCH (08:25)
[2019-11-09] MEDS: LACTULOSE 20 GM/30 ML CUP PO SCH ×3 (08:26→20:10)
[2019-11-09] MEDS: INSULIN REGULAR 100 UNIT/ML VIAL SQ SCH ×3 (08:26→17:49)
[2019-11-09] MEDS: PANTOPRAZOLE 40 MG TABLET PO SCH (08:26)
[2019-11-09] MEDS: INSULIN NPH 300 UNIT/3 ML VIAL SQ SCH ×2 (08:26→17:50)
[2019-11-09] MEDS: SODIUM CHLORIDE 0.9% 1,000 ML IV SCH (08:27)
[2019-11-09 09:28] LABS: Basophils # (A) 0.1 k/uL (0-0.2); Basophils % (A) 2 %; Eosinophils # (A) 0.1 k/uL (0-0.7); Eosinophils % (A) 2 %; HCT 39.1 % (34.0-46.0); HGB 12.1 gm/dL (11.4-16.0); Hypochromasia Moderate; Lymphocytes # (A) 0.9 k/uL (1.0-4.8); Lymphocytes % (A) 14 %; MCH 35.4 pg (25.0-35.0); MCHC 30.9 g/dL (31.0-37.0); MCV 114.5 fL (80.0-100.0); Macrocytosis Marked; Mean Platelet Volume 10.4; Monocytes # (A) 0.5 k/uL (0-1.0); Monocytes % (A) 8 %; Neutrophils # (A) 4.4 k/uL (1.3-7.7); Neutrophils % (A) 71 %; RBC 3.42 m/uL (3.80-5.40); RDW 14.5 % (11.5-15.5); WBC 6.2 k/uL (3.8-10.6)
[2019-11-09 09:29] LABS: Platelet Count 85 k/uL (150-450)
[2019-11-09 09:33] LABS: Albumin 2.4 g/dL (3.5-5.0); Calcium 8.2 mg/dL (8.4-10.2); Total Bilirubin 2.2 mg/dL (0.2-1.3); Total Protein 6.2 g/dL (6.3-8.2)
[2019-11-09 09:35] LABS: Potassium 4.8 mmol/L (3.5-5.1)
--- NOTE | 2019-11-09 09:47 | P.PN ---
Subjective Progress Note Date: 11/09/19 This is a 74-year-old female patient who presented with complaints of fever that started on Wednesday progressively increased over the past few days. Patient reports she's had some increased loose stools out of ostomy. Patient also complains of mild upper respiratory symptoms. Patient denies any nausea or vomiting. Patient denies cough or any open wounds Patient has a known past medical history of hepatocellular carcinoma. Additional medical history includes chronic ascites, nonalcoholic liver cirrhosis, diabetes mellitus, hypertension, liver, myocardial infarction, chronic renal disease chronic abdominal pain, diverticular disease with ileostomy, MRSA and VRE. Influenza negative. Leukocyte Estrace. Small amount of leukocyte Estrace noted to urine. Urine and blood cultures have been ordered. Chest x-ray completed showing no evidence for acute pulmonary disease. Abdominal ultrasound completed showing cirrhosis. There appears to be a focal 5 x 5 cm lesion posterior right liver lobe and possible 1.2 cm second lesion in the left liver lobe the setting cirrhosis HCC is not excluded. Mild to moderate abdominal pelvic ascites. Tenderness we'll scarring along the right upper quadrant. At this time blood, urine and lactic acid have been ordered stool for C. diff ordered. Infectious disease consulted. Dr. Figueroa also consulted for possible paracentesis. Patient denies any chest pain or shortness of breath. patient is having some nausea. She denies any urinary burning or frequency On 11/08/2019 patient was seen and examined on the medical floor she is alert and oriented 3 in no apparent distress there is no fever or chills no headache or dizziness no chest pain no shortness of breath no cough no nausea or vomiting no abdominal pain no diarrhea no burning was urination no frequency or urgency and no hematuria On 11/09/2019 patient is alert and oriented 3. Patient remains on Levaquin and Rocephin for IV antibiotics. Last fever 100.6 on 11/08/2019. Patient denies chest pain or shortness of breath. Patient does have cough or sputum. Patient denies any nausea vomiting or diarrhea. Patient denies any urinary burning or frequency Objective - Vital Signs Vital signs: Vital Signs Temp 98.6 F 11/09/19 05:00 Pulse 71 11/09/19 08:20 Resp 19 11/09/19 05:00 BP 100/57 11/09/19 08:20 Pulse Ox 99 11/09/19 05:00 Intake & Output 11/08/19 11/09/19 11/09/19 18:59 06:59 18:59 Intake Total 1420 360 Balance 1420 360 Intake: Intake, IV Titration 700 Amount Levofloxacin 250Mg-D5w 50 Pmx 250 mg In Dextrose/ Water 1 50ml.bag @ 50 mls /hr IVPB Q24H JENNY Rx#: [id number] Sodium Chloride 0.9% 1, 600 000 ml @ 50 mls/hr IV . Q20H JENNY Rx#:[id number] cefTRIAXone 2 gm In 50 Sodium Chloride 0.9% 50 ml @ 100 mls/hr IVPB Q24HR JENNY Rx#:[id number] Oral 720 360 Other: Voiding Method Toilet Toilet # Voids 4 2 - Exam Head normocephalic Neck supple Lungs clear to auscultation bilaterally no wheezing or crackles Heart regular rate and rhythm S1-S2, no rub or gallop Abdomen is soft nontender nondistended positive bowel sounds no hepatosplenomegaly. Left lower quadrant ostomy Extremities no edema Neuro alert and orientated to 3 - Labs CBC & Chem 7: 11/08/19 06:45 11/08/19 06:45 Labs: Abnormal Lab Results - Last 24 Hours (Table) 11/08/19 11/08/19 11/08/19 Range/Units 11:31 17:11 22:01 POC Glucose (mg/dL) 173 H 144 H 246 H (75-99) mg/dL 11/09/19 Range/Units 07:03 POC Glucose (mg/dL) 189 H (75-99) mg/dL Microbiology - Last 24 Hours (Table) 11/07/19 11:40 Urine Culture - Preliminary Urine,Voided Group D Enterococcus 11/07/19 08:44 Blood Culture - Preliminary Blood No Growth after 24 hours 11/07/19 12:45 Gram Stain - Final Ascites Fluid Body Fluid Culture - Preliminary Assessment and Plan Assessment: 1. Febrile illness likely source left lower lobe pneumonia. Chest x-ray negative for acute process. Leukocyte esterase small amount in urine noted. Urine and blood cultures ordered. Lactic acid ordered. Influenza negative. C. diff negative. Infectious disease has been consulted. CT of abdomen and pelvis completed cannot pancreatitis involving the head of the pancreas with edema within the small bowel mesentery consider correlate with amylase and lipase. Amylase and lipase within normal limits. Adjacent thickening of the duodenum and stomach left lower normal pneumonia suspected. Patient remains on Rocephin and Levaquin per ID. Blood culture showing no growth. Urine culture pending paracentesis fluid pending. Will order sputum 2. Acute kidney injury. Creatinine slightly elevated at 1.41 and bun 34. We'll hold Aldactone at this time. Creatinine improving to 1.38 and bun 29 3. Moderate amount of abdominal ascites. Abdominal ultrasound completed showing cirrhosis. This appears to be a focal by by 5 cm lesion posterior right liver lobe and possible 1.2 cm lesion of liver lobe the setting of cirrhosis, HCC is not excluded. Mild to moderate abdominal pelvic ascites. Tenderness with guarding on the right upper quadrant. Status post paracentesis 3 L. 4. History of hepatocellular carcinoma 5. History of nonalcoholic liver cirrhosis 6. History of chronic kidney disease stage III 7. History of chronic elevated ammonia level secondary to hepatocellular carcinoma nonalcoholic liver cirrhosis. Patient maintained on lactulose 8. History of urine colonization with VRE 9. History of depression 10. 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 History of recurring abdominal ascites 12. Diabetes mellitus type 2. Home meds resumed 2. History of depression and anxiety home meds resumed DVT prophylaxis SCDs due to chronic thrombus cytopenia. GI prophylaxis [facility] and infectious disease service is consulted Blood and urine cultures ordered I performed an examination of the patient and discussed their management with the Nurse Practitioner. I have reviewed the Nurse Practitioner's notes and agree with the documented findings and plan of care
[2019-11-09] MEDS: LEVOFLOXACIN 250MG-D5W PMX 250 MG in DEXTROSE/WATER 1 50ML.BAG IVPB SCH (11:04)
[2019-11-09 11:22] LABS: Glucose,Whole Blood 201 mg/dL (75-99)
--- NOTE | 2019-11-09 12:06 | PN ---
PROGRESS NOTE DATE OF SERVICE: 11/09/2019 Patient is a 74-year-old pleasant white female admitted to the hospital with fever of one week's duration associated with some abdominal pain. She underwent diagnostic paracentesis and so far the fluid analysis did not show any evidence of spontaneous bacterial peritonitis. Empirically, she has been on antibiotics and she is doing well. In the meantime, she developed some cough and Dr. Esparza was consulted. She had a CT of the chest and abdomen done yesterday that showed left lower lobe infiltrate consistent with pneumonia. This morning she is feeling better. She reports no new symptoms. Coughing is better. Denies any shortness of breath. PHYSICAL EXAMINATION: On physical examination, appears comfortable, no apparent distress. Vital signs are stable. Blood pressure 93/48, pulse 61, temperature 98.6. HEENT examination unremarkable. Conjunctivae pink. Sclerae anicteric. Oral cavity no lesions. NECK: No JVD or lymph node enlargement. CHEST: Clear to auscultation. HEART: Regular rate and rhythm. ABDOMEN: Soft. Bowel sounds are positive. Colostomy in place. EXTREMITIES: No pedal edema. SKIN: No rashes. NEUROLOGIC: Alert and oriented x3. No focal deficits. LABS: WBC 6.2, hemoglobin 12.1, platelets 85,000. Basic metabolic panel is within normal limits. BUN 29, creatinine 1.38. IMPRESSION: 1. Cirrhosis of the liver with ascites, status post paracentesis 2 days ago. Fluid analysis did not show any evidence of spontaneous bacterial peritonitis. Cultures so far have been negative. The patient is on Rocephin 1 gram twice daily. 2. Pneumonia, on broad-spectrum antibiotics. 3. History of hepatocellular carcinoma. Recent ultrasound of the abdomen did show a 5 cm lesion in the left lobe of the liver. However, CAT scan done yesterday did not show any lesions in the liver. 4. Elevated LFTs secondary to underlying liver cirrhosis from fatty liver disease. RECOMMENDATIONS: 1. Continue with broad-spectrum antibiotics. 2. Low-fat diet. 3. Continue with diuretics. 4. Obtain alpha-fetoprotein. 5. May need an MRI of the liver to evaluate the liver lesion. Thank you for this consultation. MMODL / IJN: [id number] /
[2019-11-09] MEDS: ONDANSETRON 4 MG/2 ML VIAL IVP PRN (14:39)
[2019-11-09 17:20] LABS: Glucose,Whole Blood 129 mg/dL (75-99)
[2019-11-09] MEDS: MAG HYDROX/AL HYDROX/SIMETH 30 ML, diphenhydrAMINE ELIXIR 75 MG, LIDOCAINE VISCOUS 30 ML PO SCH ×6 (17:50→22:28)
[2019-11-09] MEDS: MORPHINE SULFATE 4 MG/ML SYRINGE IV PRN (17:51)
[2019-11-09 19:35] LABS: Glucose,Whole Blood 171 mg/dL (75-99)
[2019-11-09] MEDS: clonazePAM 0.5 MG TAB PO PRN (22:25)
--- NOTE | 2019-11-09 22:50 | PN ---
PROGRESS NOTE DATE OF SERVICE: 11/09/2019 REASON FOR FOLLOWUP: Fever; possible pneumonia. INTERVAL HISTORY: The patient is currently afebrile. The patient has been breathing more comfortably. The patient did have a cough but not bringing any sputum. No chest pain or shortness of breath. She did complain of some epigastric discomfort and nausea, but no vomiting or any diarrhea. PHYSICAL EXAMINATION: Blood pressure is 103/55 with a pulse of 60, temperature 99.7. She is 100% on room air. General description is an elderly female up in the chair in no distress. RESPIRATORY SYSTEM: Unlabored breathing with decreased breath sounds at the base. No wheeze. HEART: S1, S2. Regular rate and rhythm. ABDOMEN: Soft. No tenderness. LABS: Hemoglobin is 12.1 with a white count of 6.2, BUN of 29, creatinine 1.38. Urine with Enterococcus faecalis, a sensitive pathogen. Abdominal ascitic fluid culture so far negative. Blood culture has been negative. DIAGNOSTIC IMPRESSION AND PLAN: Patient with fever with concern for possible pneumonia seen on the CT of abdomen and pelvis which also raised the possibility of pancreatitis. Amylase and lipase will be checked. Patient's fever responded to the Levaquin and the Rocephin; to continue and monitor clinical course closely. MMODL / IJN: [id number] /
[2019-11-10] MEDS: MORPHINE SULFATE 4 MG/ML SYRINGE IV PRN ×2 (00:37→13:19)
[2019-11-10] MEDS: SODIUM CHLORIDE 0.9% 1,000 ML IV SCH ×2 (00:38→22:24)
[2019-11-10 01:10] LABS: Hemoglobin A1C 5.6 % (4.0-6.0)
[2019-11-10 07:08] LABS: Glucose,Whole Blood 106 mg/dL (75-99)
[2019-11-10] MEDS: INSULIN NPH 300 UNIT/3 ML VIAL SQ SCH ×2 (08:24→17:41)
[2019-11-10] MEDS: INSULIN REGULAR 100 UNIT/ML VIAL SQ SCH ×3 (08:24→17:40)
[2019-11-10] MEDS: LEVOFLOXACIN 250 MG TAB PO SCH (08:31)
[2019-11-10] MEDS: TORSEMIDE 20 MG TAB PO SCH (08:31)
[2019-11-10] MEDS: buPROPion SR 150 MG TABLET.ER PO SCH (08:31)
[2019-11-10] MEDS: CHOLECALCIFEROL 1,000 UNIT TAB PO SCH (08:32)
[2019-11-10] MEDS: PANTOPRAZOLE 40 MG TABLET PO SCH (08:33)
[2019-11-10] MEDS: SUCRALFATE 1 GM TAB PO SCH ×4 (08:33→22:21)
[2019-11-10] MEDS: ISOSORBIDE MONONITRATE ER 30 MG TAB.ER.24H PO SCH (08:34)
[2019-11-10] MEDS: FERROUS SULFATE 325 MG TAB PO SCH ×2 (08:34→22:20)
[2019-11-10] MEDS: DICYCLOMINE 10 MG CAP PO SCH (08:34)
[2019-11-10] MEDS: METOPROLOL TARTRATE 12.5 MG TAB PO SCH (08:35)
[2019-11-10] MEDS: LACTULOSE 20 GM/30 ML CUP PO SCH ×3 (08:35→22:21)
[2019-11-10] MEDS: MORPHINE SULFATE ER 15 MG TABLET PO SCH ×2 (08:36→22:19)
[2019-11-10] MEDS: MAG HYDROX/AL HYDROX/SIMETH 30 ML, diphenhydrAMINE ELIXIR 75 MG, LIDOCAINE VISCOUS 30 ML PO SCH ×9 (08:37→22:21)
[2019-11-10 08:54] LABS: Basophils % (A) 0 %; Eosinophils # (A) 0.2 k/uL (0-0.7); Eosinophils % (A) 3 %; HCT 33.2 % (34.0-46.0); HGB 10.9 gm/dL (11.4-16.0); Lymphocytes # (A) 0.9 k/uL (1.0-4.8); Lymphocytes % (A) 17 %; MCH 35.8 pg (25.0-35.0); MCHC 32.6 g/dL (31.0-37.0); Macrocytosis Marked; Mean Platelet Volume 10.4; Monocytes # (A) 0.5 k/uL (0-1.0); Monocytes % (A) 9 %; Neutrophils # (A) 3.8 k/uL (1.3-7.7); Neutrophils % (A) 68 %; RBC 3.03 m/uL (3.80-5.40); RDW 14.6 % (11.5-15.5); WBC 5.6 k/uL (3.8-10.6)
[2019-11-10 08:58] LABS: MCV 109.5 fL (80.0-100.0); Platelet Count 98 k/uL (150-450)
[2019-11-10 09:07] LABS: Albumin 2.1 g/dL (3.5-5.0); Calcium 7.8 mg/dL (8.4-10.2); Potassium 4.2 mmol/L (3.5-5.1); Total Bilirubin 1.8 mg/dL (0.2-1.3); Total Protein 5.6 g/dL (6.3-8.2)
--- NOTE | 2019-11-10 11:02 | P.PN ---
Subjective Progress Note Date: 11/10/19 This is a 74-year-old female patient who presented with complaints of fever that started on Wednesday progressively increased over the past few days. Patient reports she's had some increased loose stools out of ostomy. Patient also complains of mild upper respiratory symptoms. Patient denies any nausea or vomiting. Patient denies cough or any open wounds Patient has a known past medical history of hepatocellular carcinoma. Additional medical history includes chronic ascites, nonalcoholic liver cirrhosis, diabetes mellitus, hypertension, liver, myocardial infarction, chronic renal disease chronic abdominal pain, diverticular disease with ileostomy, MRSA and VRE. Influenza negative. Leukocyte Estrace. Small amount of leukocyte Estrace noted to urine. Urine and blood cultures have been ordered. Chest x-ray completed showing no evidence for acute pulmonary disease. Abdominal ultrasound completed showing cirrhosis. There appears to be a focal 5 x 5 cm lesion posterior right liver lobe and possible 1.2 cm second lesion in the left liver lobe the setting cirrhosis HCC is not excluded. Mild to moderate abdominal pelvic ascites. Tenderness we'll scarring along the right upper quadrant. At this time blood, urine and lactic acid have been ordered stool for C. diff ordered. Infectious disease consulted. Dr. Figueroa also consulted for possible paracentesis. Patient denies any chest pain or shortness of breath. patient is having some nausea. She denies any urinary burning or frequency On 11/08/2019 patient was seen and examined on the medical floor she is alert and oriented 3 in no apparent distress there is no fever or chills no headache or dizziness no chest pain no shortness of breath no cough no nausea or vomiting no abdominal pain no diarrhea no burning was urination no frequency or urgency and no hematuria On 11/09/2019 patient is alert and oriented 3. Patient remains on Levaquin and Rocephin for IV antibiotics. Last fever 100.6 on 11/08/2019. Patient denies chest pain or shortness of breath. Patient does have cough or sputum. Patient denies any nausea vomiting or diarrhea. Patient denies any urinary burning or frequency On 11/10/2018 patient is alert and oriented 3. Patient stopping elevated 100.2. Patient remains on IV antibiotic Levaquin and Rocephin per infectious disease. Sputum culture has been ordered. Patient denies any chest pain. Patient is having productive cough. Patient denies nausea vomiting or diarrhea. Patient denies any urinary burning or frequency Objective - Vital Signs Vital signs: Vital Signs Temp 98.8 F 11/10/19 08:48 Pulse 65 11/10/19 04:47 Resp 15 11/10/19 04:47 BP 114/83 11/10/19 04:47 Pulse Ox 96 11/10/19 04:47 Intake & Output 11/09/19 11/10/19 11/10/19 18:59 06:59 18:59 Intake Total 240 Balance 240 Intake: Oral 240 Other: Voiding Method Toilet Toilet Toilet # Voids 3 1 # Bowel Movements 1 - Exam Head normocephalic Neck supple Lungs clear to auscultation bilaterally no wheezing or crackles Heart regular rate and rhythm S1-S2, no rub or gallop Abdomen is soft nontender nondistended positive bowel sounds no hepatosplenomegaly. Left lower quadrant ostomy Extremities no edema Neuro alert and orientated to 3 - Labs CBC & Chem 7: 11/10/19 08:29 11/10/19 08:29 Labs: Abnormal Lab Results - Last 24 Hours (Table) 11/09/19 11/09/19 11/09/19 Range/Units 11:15 17:13 19:35 RBC (3.80-5.40) m/uL Hgb (11.4-16.0) gm/dL Hct (34.0-46.0) % MCV (80.0-100.0) fL MCH (25.0-35.0) pg Plt Count (150-450) k/uL Lymphocytes # (1.0-4.8) k/uL Macrocytosis Sodium (137-145) mmol/L Chloride (98-107) mmol/L Carbon Dioxide (22-30) mmol/L BUN (7-17) mg/dL Creatinine (0.52-1.04) mg/dL Glucose (74-99) mg/dL POC Glucose (mg/dL) 201 H 129 H 171 H (75-99) mg/dL Calcium (8.4-10.2) mg/dL Total Bilirubin (0.2-1.3) mg/dL AST (14-36) U/L Alkaline Phosphatase (38-126) U/L Total Protein (6.3-8.2) g/dL Albumin (3.5-5.0) g/dL 11/10/19 11/10/19 11/10/19 Range/Units 07:07 08:29 08:29 RBC 3.03 L (3.80-5.40) m/uL Hgb 10.9 L (11.4-16.0) gm/dL Hct 33.2 L (34.0-46.0) % MCV 109.5 H D (80.0-100.0) fL MCH 35.8 H (25.0-35.0) pg Plt Count 98 L (150-450) k/uL Lymphocytes # 0.9 L (1.0-4.8) k/uL Macrocytosis Marked A Sodium 134 L (137-145) mmol/L Chloride 108 H (98-107) mmol/L Carbon Dioxide 17 L (22-30) mmol/L BUN 26 H (7-17) mg/dL Creatinine 1.52 H (0.52-1.04) mg/dL Glucose 152 H (74-99) mg/dL POC Glucose (mg/dL) 106 H (75-99) mg/dL Calcium 7.8 L (8.4-10.2) mg/dL Total Bilirubin 1.8 H (0.2-1.3) mg/dL AST 48 H (14-36) U/L Alkaline Phosphatase 202 H (38-126) U/L Total Protein 5.6 L (6.3-8.2) g/dL Albumin 2.1 L (3.5-5.0) g/dL Microbiology - Last 24 Hours (Table) 11/07/19 12:45 Gram Stain - Final Ascites Fluid Body Fluid Culture - Preliminary 11/07/19 11:40 Urine Culture - Final Urine,Voided Enterococcus faecalis 11/07/19 12:45 Anaerobic Culture - Preliminary Ascites Fluid 11/07/19 08:44 Blood Culture - Preliminary Blood No Growth after 48 hours Assessment and Plan Assessment: 1. Febrile illness likely source left lower lobe pneumonia. Chest x-ray negative for acute process. Leukocyte esterase small amount in urine noted. Urine and blood cultures ordered. Lactic acid ordered. Influenza negative. C. diff negative. Infectious disease has been consulted. CT of abdomen and pelvis completed cannot pancreatitis involving the head of the pancreas with edema wit hin the small bowel mesentery consider correlate with amylase and lipase. Amylase and lipase within normal limits. Adjacent thickening of the duodenum and stomach left lower normal pneumonia suspected. Patient remains on Rocephin and Levaquin per ID. Blood culture showing no growth. Urine culture pending paracentesis fluid pending. Will order sputum 2. Acute kidney injury. Creatinine slightly elevated at 1.41 and bun 34. We'll hold Aldactone at this time. Lasix changed to torsemide creatinine 1.52 and bun 26 will continue to monitor 3. Moderate amount of abdominal ascites. Abdominal ultrasound completed showing cirrhosis. This appears to be a focal by by 5 cm lesion posterior right liver lobe and possible 1.2 cm lesion of liver lobe the setting of cirrhosis, HCC is not excluded. Mild to moderate abdominal pelvic ascites. Tenderness with guarding on the right upper quadrant. Status post paracentesis 3 L. 4. History of hepatocellular carcinoma. Per GI services recent ultrasound of abdomen did show 5 cm lesion in the left lobe of the liver. However CAT scan done yesterday did not show any liver lesions. May need MRI of the liver to evaluate the liver lesion 5. History of nonalcoholic liver cirrhosis. Per GI services fluid analysis did not show any evidence of spontaneous bacterial peritonitis. 6. History of chronic kidney disease stage III 7. History of chronic elevated ammonia level secondary to hepatocellular carcinoma nonalcoholic liver cirrhosis. Patient maintained on lactulose 8. History of urine colonization with VRE 9. History of depression 10. History of pancytopenia secondary to known hepatocellular carcinoma and liver cirrhosis 11. History of recurring abdominal ascites 12. Diabetes mellitus type 2. Home meds resumed. A1c has been ordered 13. History of depression and anxiety home meds resumed 14. Sores in mouth. Patient reports that she has follow-up appointment with oral surgeon in regards to this issue Magic mouthwash has been ordered DVT prophylaxis SCDs due to chronic thrombocytopenia. GI prophylaxis [facility] GI and infectious disease service is consulted Blood, sputum and urine cultures ordered I performed an examination of the patient and discussed their management with the Nurse Practitioner. I have reviewed the Nurse Practitioner's notes and agree with the documented findings and plan of care
[2019-11-10 11:14] LABS: Glucose,Whole Blood 186 mg/dL (75-99)
[2019-11-10 13:34] VITALS: BMI 29.5
[2019-11-10 17:03] LABS: Glucose,Whole Blood 133 mg/dL (75-99)
[2019-11-10 20:06] LABS: Glucose,Whole Blood 183 mg/dL (75-99)
--- NOTE | 2019-11-10 22:26 | PN ---
PROGRESS NOTE DATE OF SERVICE: 11/10/2019 REASON FOR FOLLOWUP: Pneumonia. INTERVAL HISTORY: The patient did have a low-grade fever of 99.9 today. The patient has been breathing comfortably. She did have a mild to moderate cough and was able to bring up a sputum sample. No nausea, no vomiting or diarrhea. PHYSICAL EXAMINATION: Blood pressure is 110/64 with a pulse of 59, temperature 99.1. She is 99% on room air. General description is an elderly female up in the bed in no distress. RESPIRATORY SYSTEM: Unlabored breathing with decreased breath sounds at the base. No wheeze. HEART: S1, S2. rate and rhythm. ABDOMEN: Soft. No tenderness. LABS: Hemoglobin is 10.9, white count 5.6, BUN of 26, creatinine 1.52. Urine with enterococcus. Blood culture has been negative so far. DIAGNOSTIC IMPRESSION AND PLAN: Patient with fever. Concern is likely for left lower lobe pneumonia, possible community- acquired. Patient is covered with Rocephin and Levaquin; to continue. Urine with enterococcus. However, overall UA was not significantly positive and the patient's fever responded to current antibiotics. They will be continued while waiting for the sputum culture to finalize. Continue with supportive care. MMODL / IJN: [id number] /
[2019-11-11 07:07] LABS: Glucose,Whole Blood 160 mg/dL (75-99)
[2019-11-11 07:50] LABS: Basophils % (A) 1 %; Eosinophils # (A) 0.2 k/uL (0-0.7); Eosinophils % (A) 5 %; HCT 30.7 % (34.0-46.0); HGB 10.1 gm/dL (11.4-16.0); Lymphocytes # (A) 0.9 k/uL (1.0-4.8); Lymphocytes % (A) 21 %; MCH 35.3 pg (25.0-35.0); MCHC 32.8 g/dL (31.0-37.0); MCV 107.5 fL (80.0-100.0); Macrocytosis Marked; Mean Platelet Volume 9.9; Monocytes # (A) 0.3 k/uL (0-1.0); Monocytes % (A) 8 %; Neutrophils # (A) 2.5 k/uL (1.3-7.7); Neutrophils % (A) 61 %; RBC 2.85 m/uL (3.80-5.40); RDW 14.7 % (11.5-15.5); WBC 4.1 k/uL (3.8-10.6)
[2019-11-11 07:56] LABS: Platelet Count 86 k/uL (150-450)
[2019-11-11 07:59] LABS: Albumin 1.9 g/dL (3.5-5.0); Calcium 7.4 mg/dL (8.4-10.2); Potassium 3.5 mmol/L (3.5-5.1); Total Bilirubin 1.5 mg/dL (0.2-1.3); Total Protein 5.1 g/dL (6.3-8.2)
[2019-11-11] MEDS: METOPROLOL TARTRATE 12.5 MG TAB PO SCH (08:16)
[2019-11-11] MEDS: PANTOPRAZOLE 40 MG TABLET PO SCH (08:17)
[2019-11-11] MEDS: buPROPion SR 150 MG TABLET.ER PO SCH (08:17)
[2019-11-11] MEDS: CHOLECALCIFEROL 1,000 UNIT TAB PO SCH (08:18)
[2019-11-11] MEDS: SUCRALFATE 1 GM TAB PO SCH ×4 (08:18→21:09)
[2019-11-11] MEDS: TORSEMIDE 20 MG TAB PO SCH (08:18)
[2019-11-11] MEDS: MORPHINE SULFATE ER 15 MG TABLET PO SCH ×2 (08:19→21:09)
[2019-11-11] MEDS: FERROUS SULFATE 325 MG TAB PO SCH ×2 (08:19→21:09)
[2019-11-11] MEDS: DICYCLOMINE 10 MG CAP PO SCH (08:20)
[2019-11-11] MEDS: INSULIN NPH 300 UNIT/3 ML VIAL SQ SCH ×2 (08:21→17:21)
[2019-11-11] MEDS: INSULIN REGULAR 100 UNIT/ML VIAL SQ SCH ×3 (08:21→17:20)
[2019-11-11] MEDS: ISOSORBIDE MONONITRATE ER 30 MG TAB.ER.24H PO SCH (08:22)
[2019-11-11] MEDS: MAG HYDROX/AL HYDROX/SIMETH 30 ML, diphenhydrAMINE ELIXIR 75 MG, LIDOCAINE VISCOUS 30 ML PO SCH ×9 (08:22→22:56)
[2019-11-11 08:25] LABS: Amylase <30 U/L (30-110)
[2019-11-11] MEDS: LACTULOSE 20 GM/30 ML CUP PO SCH ×3 (08:25→21:10)
[2019-11-11 09:42] LABS: Poikilocytosis (M) Present
[2019-11-11] MEDS: MORPHINE SULFATE 4 MG/ML SYRINGE IV PRN ×2 (10:04→15:38)
[2019-11-11 11:57] LABS: Glucose,Whole Blood 199 mg/dL (75-99)
[2019-11-11] MEDS: LEVOFLOXACIN 250 MG TAB PO SCH (12:09)
--- NOTE | 2019-11-11 13:57 | P.CNPUL ---
History of Present Illness Consult date: 11/11/19 Requesting physician: Artemio Lea Reason for consult: pneumonia Chief complaint: Fever. History of present illness: This is a 74-year-old female with history of multiple medical problems including hepatocellular liver cancer, nonalcoholic liver cirrhosis, seen in the ER on 11/06/2019, patient was complaining of 2 days history of nonproductive cough, nasal congestion, chills, and she had a temp as high as 102. She was also complaining of diffuse abdominal cramping with mild abdominal distention. She was concerned that she may require paracentesis for her recurrent ascites. Patient had a previous history of colostomy secondary to diverticulitis. She has been noticing some bright red blood in her ostomy bag that day prior to admission. Patient had no urinary symptoms although she had previous history of recurrent urinary tract infections. Patient was admitted with the impression of febrile illness, she had a relatively normal chest x-ray on admission, she was also diagnosed with acute kidney injury, and diuretics were placed on hold. She had moderate amount of abdominal ascites, and her other medical problems on admission included nonalcoholic liver cirrhosis, chronic colonization of urine with VRE, and type 2 diabetes. Patient was seen by infectious disease on consultation, and he was concerned about ascites and spontaneous bacterial peritonitis or possible other intra-abdominal source of infection. Patient was placed on Levaquin and Rocephin. Her urine came back positive for Enterococcus faecalis, but it was felt to be mostly colonization. Her paracentesis fluid came back negative for infection. On 11/08/2019, patient had a CT of the abdomen and pelvis, and it clearly showed left lower lobe infiltrate consistent with pneumonia involving the left lower lobe. There was small pleural effusion noted. Considering the abnormality on the CT of the abdomen and pelvis showing infiltrate in the left lower lobe, this consult was initiated. Patient presented initially with pulmonary symptoms, however her chest x-ray on admission was clear. Patient describes cough, it is productive with yellow phlegm, she had a T-max of 99.1, presently afebrile. She is on room air, and O2 saturation is 100%. Review of Systems Constitutional: Fever chills, no weight loss.. HEENT:, no blurred vision, no dizziness, no sore throat. No ear ache. Pulmonary: As noted in HPI.. Cardiac: Denies any chest pain, no angina, no palpitations, no diaphoresis. No syncope no PND GI: Recurrent ascites and abdominal discomfort. Skin: Denies any rashes, denies any itching. Genitourinary: Recurrent urinary tract infection secondary to VRE. Endocrine: Denies any heat or cold intolerance, denies any polyuria or polyphagia polydipsia. Musculoskeletal: Denies any aches or pains, no deformities, no arthralgia. Neurologic: Denies headache blurred vision or dizziness Psychiatric: Denies any symptoms of active depression. Past Medical History Past Medical History: Cancer, Diabetes Mellitus, Hypertension, Liver Disease, Myocardial Infarction ([place]), Renal Disease Additional Past Medical History / Comment(s): Hepatocellular liver cancer with chemo immobilization-last time being 2017, ascities with paracentesis's may 2019, nonalcoholic liver cirrhosis, chronic pancytopenia, chronic elevated ammonia levels, hepatic encephalopathy, chronic elevated LFTs, chronic abdominal pain, stomach ulcer, diverticular disease with ileostomy, IDDM type II, iron anemia, CKD stage III, nonsustained vtach, UTI, high ammonia levels Last Myocardial Infarction Date:: unk History of Any Multi-Drug Resistant Organisms: MRSA, VRE Date of last positivie culture/infection: 07/22/19- VRE; 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 Past Anesthesia/Blood Transfusion Reactions: No Reported Reaction Past Psychological History: Anxiety, Depression Smoking Status: Former smoker Past Alcohol Use History: None Reported Past Drug Use History: None Reported - Past Family History Mother History Unknown: Yes Family Medical History: Congestive Heart Failure (CHF) Additional Family Medical History / Comment(s): Mother is 94 yrs old. Father Family Medical History: Chest Pain / Angina Additional Family Medical History / Comment(s): Father is . Medications and Allergies Home Medications Medication Instructions Recorded Confirmed Type Omeprazole [PriLOSEC] 20 mg PO DAILY 10/23/18 11/09/19 History Sucralfate [Carafate] 1 gm PO ACHS 10/23/18 11/09/19 History Insulin Regular, Human [NovoLIN R] 10 unit SQ AC-TID 10/24/18 11/09/19 History Cholecalciferol [Vitamin D3 (25 2,000 unit PO DAILY 01/16/19 11/09/19 History Mcg = 1000 Iu)] Ferrous Sulfate [Iron (65 MG 325 mg PO BID 01/31/19 11/09/19 History Elemental)] Morphine Sulfate [Ms Contin] 15 mg PO BID 05/15/19 11/09/19 History buPROPion HCL [Wellbutrin SR] 150 mg PO DAILY 06/12/19 11/09/19 History clonazePAM [KlonoPIN] 0.5 mg PO BID PRN 06/12/19 11/06/19 History Lactulose [Cephulac] 30 gm PO TID 07/22/19 11/09/19 History Isosorbide Mononitrate ER [Imdur] 30 mg PO DAILY 30 Days #30 07/26/19 11/09/19 Rx tab.er.24h Furosemide [Lasix] 40 mg PO DAILY 30 Days #30 tablet 08/07/19 11/09/19 Rx Spironolactone [Aldactone] 50 mg PO DAILY 30 Days #30 tab 08/07/19 11/09/19 Rx Dicyclomine [Bentyl] 10 mg PO DAILY 10/02/19 11/09/19 History Insulin NPH Human Isophane 18 unit SQ AC-BID 10/02/19 11/09/19 History [NovoLIN N] Metoprolol Tartrate [Lopressor] 6.25 mg PO DAILY tab 10/04/19 11/06/19 Rx Allergies Allergy/AdvReac Type Severity Reaction Status Date / Time amlodipine Allergy Rash/Hives Verified 11/06/19 13:17 oxycodone Allergy Rash/Hives Verified 11/06/19 13:17 Penicillins Allergy Rash/Hives Verified 11/06/19 13:17 hydromorphone [From Dilaudid] AdvReac Mild tactile Verified 11/06/19 13:17 disturbance GREG Inhibitors AdvReac Cough Verified 11/06/19 13:17 sodium dodecyclbenzene Allergy Rash/Hives Uncoded 11/06/19 13:17 sulfonate Physical Exam Vitals: Vital Signs Temp Pulse Resp BP Pulse Ox 11/11/19 11:57 97.7 F 61 18 121/60 100 11/11/19 05:00 98.4 F 68 18 94/58 97 11/10/19 21:00 99.1 F 59 L 18 95/50 99 Intake and Output 11/10/19 11/11/19 11/11/19 22:59 06:59 14:59 Intake Total 150 Balance 150 Intake: Intake, IV Titration 150 Amount Sodium Chloride 0.9% 1, 150 000 ml @ 50 mls/hr IV . Q20H [facility] Rx#:[id number] Other: Voiding Method Toilet Toilet Toilet # Voids 2 Physical Exam: Revealed 74-year-old female, pleasant, in no distress. Head: Atraumatic, normocephalic. HEENT:[Neck is supple.] [No neck masses.] [No thyromegaly.] [No JVD.] Chest: [Fine crackles at the left base, right side is relatively clear, no rhonchi, no wheezes] Cardiac Exam: [Normal S1 and S2, no S3 gallop, no murmur.] Abdomen: [Soft, nontender, no megaly, left lower quadrant ostomy noted. Extremities: [No clubbing, no edema, no cyanosis.] Neurological Exam: [No focal neurologic deficit.] Alert and oriented 3. Psychiatric: Normal mood, affect and normal mental status examination. Skin: No rashes. Results - Laboratory Findings CBC and BMP: 11/11/19 06:30 11/11/19 06:30 PT/INR, D-dimer PT 14.6 sec (9.0-12.0) H 11/06/19 14:24 INR 1.4 (<1.2) H 11/06/19 14:24 Abnormal lab findings: Abnormal Labs 11/06/19 11/06/19 11/06/19 14:24 14:24 14:24 RBC 3.10 L Hgb Hct 32.8 L MCV 105.9 H MCH 36.7 H MCHC Plt Count 63 L Lymphocytes # 0.8 L Macrocytosis PT INR Sodium 130 L Potassium Chloride Carbon Dioxide 21 L BUN 35 H Creatinine 1.59 H Glucose 158 H POC Glucose (mg/dL) Plasma Lactic Acid Carlos Calcium 8.0 L Total Bilirubin 3.3 H AST 93 H ALT 63 H Alkaline Phosphatase 210 H C-Reactive Protein Total Protein Albumin 2.6 L Amylase Lipase Ur Leukocyte Esterase Small H Urine Bacteria Moderate H Hyaline Casts 6 H Urine Mucus Rare H 11/06/19 11/06/19 11/07/19 14:24 20:36 07:08 RBC 2.91 L Hgb 10.8 L Hct 31.4 L MCV 107.9 H MCH 37.2 H MCHC Plt Count 63 L Lymphocytes # 0.6 L Macrocytosis Marked A PT 14.6 H INR 1.4 H Sodium Potassium Chloride Carbon Dioxide BUN Creatinine Glucose POC Glucose (mg/dL) 240 H Plasma Lactic Acid Carlos Calcium Total Bilirubin AST ALT Alkaline Phosphatase C-Reactive Protein Total Protein Albumin Amylase Lipase Ur Leukocyte Esterase Urine Bacteria Hyaline Casts Urine Mucus 11/07/19 11/07/19 11/07/19 07:08 07:15 09:45 RBC Hgb Hct MCV MCH MCHC Plt Count Lymphocytes # Macrocytosis PT INR Sodium 134 L Potassium Chloride Carbon Dioxide 21 L BUN 34 H Creatinine 1.41 H Glucose 146 H POC Glucose (mg/dL) 149 H Plasma Lactic Acid Carlos 3.2 H* Calcium 7.7 L Total Bilirubin AST ALT Alkaline Phosphatase C-Reactive Protein Total Protein Albumin Amylase Lipase Ur Leukocyte Esterase Urine Bacteria Hyaline Casts Urine Mucus 11/07/19 11/07/19 11/07/19 11:43 13:48 17:17 RBC Hgb Hct MCV MCH MCHC Plt Count Lymphocytes # Macrocytosis PT INR Sodium Potassium Chloride Carbon Dioxide BUN Creatinine Glucose POC Glucose (mg/dL) 160 H 178 H Plasma Lactic Acid Carlos 2.2 H* Calcium Total Bilirubin AST ALT Alkaline Phosphatase C-Reactive Protein Total Protein Albumin Amylase Lipase Ur Leukocyte Esterase Urine Bacteria Hyaline Casts Urine Mucus 11/07/19 11/08/19 11/08/19 19:57 06:45 06:45 RBC 2.71 L Hgb 10.0 L Hct 29.8 L MCV 110.1 H MCH 36.9 H MCHC Plt Count 65 L Lymphocytes # 0.4 L Macrocytosis Marked A PT INR Sodium 133 L Potassium 5.2 H Chloride 108 H Carbon Dioxide 20 L BUN 34 H Creatinine 1.55 H Glucose 197 H POC Glucose (mg/dL) 138 H Plasma Lactic Acid Carlos Calcium 8.1 L Total Bilirubin 2.6 H AST 53 H ALT 40 H Alkaline Phosphatase 168 H C-Reactive Protein 83.0 H Total Protein 5.3 L Albumin 2.2 L Amylase Lipase Ur Leukocyte Esterase Urine Bacteria Hyaline Casts Urine Mucus 11/08/19 11/08/19 11/08/19 06:58 11:31 17:11 RBC Hgb Hct MCV MCH MCHC Plt Count Lymphocytes # Macrocytosis PT INR Sodium Potassium Chloride Carbon Dioxide BUN Creatinine Glucose POC Glucose (mg/dL) 195 H 173 H 144 H Plasma Lactic Acid Carlos Calcium Total Bilirubin AST ALT Alkaline Phosphatase C-Reactive Protein Total Protein Albumin Amylase Lipase Ur Leukocyte Esterase Urine Bacteria Hyaline Casts Urine Mucus 11/08/19 11/09/19 11/09/19 22:01 07:03 08:36 RBC 3.42 L Hgb Hct MCV 114.5 H MCH 35.4 H MCHC 30.9 L Plt Count 85 L Lymphocytes # 0.9 L Macrocytosis Marked A PT INR Sodium Potassium Chloride Carbon Dioxide BUN Creatinine Glucose POC Glucose (mg/dL) 246 H 189 H Plasma Lactic Acid Carlos Calcium Total Bilirubin AST ALT Alkaline Phosphatase C-Reactive Protein Total Protein Albumin Amylase Lipase Ur Leukocyte Esterase Urine Bacteria Hyaline Casts Urine Mucus 11/09/19 11/09/19 11/09/19 08:36 11:15 17:13 RBC Hgb Hct MCV MCH MCHC Plt Count Lymphocytes # Macrocytosis PT INR Sodium 134 L Potassium Chloride 112 H Carbon Dioxide 15 L BUN 29 H Creatinine 1.38 H Glucose 188 H POC Glucose (mg/dL) 201 H 129 H Plasma Lactic Acid Carlos Calcium 8.2 L Total Bilirubin 2.2 H AST 55 H ALT 40 H Alkaline Phosphatase 183 H C-Reactive Protein Total Protein 6.2 L Albumin 2.4 L Amylase Lipase Ur Leukocyte Esterase Urine Bacteria Hyaline Casts Urine Mucus 11/09/19 11/10/19 11/10/19 19:35 07:07 08:29 RBC 3.03 L Hgb 10.9 L Hct 33.2 L MCV 109.5 H D MCH 35.8 H MCHC Plt Count 98 L Lymphocytes # 0.9 L Macrocytosis Marked A PT INR Sodium Potassium Chloride Carbon Dioxide BUN Creatinine Glucose POC Glucose (mg/dL) 171 H 106 H Plasma Lactic Acid Carlos Calcium Total Bilirubin AST ALT Alkaline Phosphatase C-Reactive Protein Total Protein Albumin Amylase Lipase Ur Leukocyte Esterase Urine Bacteria Hyaline Casts Urine Mucus 11/10/19 11/10/19 11/10/19 08:29 11:12 17:02 RBC Hgb Hct MCV MCH MCHC Plt Count Lymphocytes # Macrocytosis PT INR Sodium 134 L Potassium Chloride 108 H Carbon Dioxide 17 L BUN 26 H Creatinine 1.52 H Glucose 152 H POC Glucose (mg/dL) 186 H 133 H Plasma Lactic Acid Carlos Calcium 7.8 L Total Bilirubin 1.8 H AST 48 H ALT Alkaline Phosphatase 202 H C-Reactive Protein Total Protein 5.6 L Albumin 2.1 L Amylase Lipase Ur Leukocyte Esterase Urine Bacteria Hyaline Casts Urine Mucus 11/10/19 11/11/19 11/11/19 20:05 06:30 06:30 RBC 2.85 L Hgb 10.1 L Hct 30.7 L MCV 107.5 H MCH 35.3 H MCHC Plt Count 86 L Lymphocytes # 0.9 L Macrocytosis Marked A PT INR Sodium Potassium Chloride Carbon Dioxide BUN Creatinine Glucose POC Glucose (mg/dL) 183 H Plasma Lactic Acid Carlos Calcium Total Bilirubin AST ALT Alkaline Phosphatase C-Reactive Protein Total Protein Albumin Amylase <30 L Lipase 16 L Ur Leukocyte Esterase Urine Bacteria Hyaline Casts Urine Mucus 11/11/19 11/11/19 11/11/19 06:30 07:06 11:56 RBC Hgb Hct MCV MCH MCHC Plt Count Lymphocytes # Macrocytosis PT INR Sodium 136 L Potassium Chloride 110 H Carbon Dioxide 19 L BUN 23 H Creatinine 1.29 H Glucose 162 H POC Glucose (mg/dL) 160 H 199 H Plasma Lactic Acid Carlos Calcium 7.4 L Total Bilirubin 1.5 H AST 47 H ALT Alkaline Phosphatase 203 H C-Reactive Protein Total Protein 5.1 L Albumin 1.9 L Amylase Lipase Ur Leukocyte Esterase Urine Bacteria Hyaline Casts Urine Mucus - Diagnostic Findings Chest x-ray: image reviewed (Chest x-ray on admission was reviewed, CT of the abdomen and pelvis showed left lower lobe extensive infiltrate) Assessment and Plan Assessment: Impression: Acute left lower lobe pneumonia, likely community-acquired, not seen on her initial chest x-ray, but clearly seen on CT of the abdomen and pelvis. Chronic abdominal ascites with history of liver cirrhosis. History of hepatocellular carcinoma History of chronic kidney disease stage III Chronic urinary tract infection with colonization secondary to VRE History of depression History of pancytopenia secondary to known history of hepatocellular carcinoma Type 2 diabetes Recommendation: Agree with the present treatment plan including Rocephin and Levaquin, Repeat chest x-ray and compared to admission chest x-ray. Continue antibiotics as per infectious disease on the case, Depending on the chest x-ray which would be ordered to be done in a.m., may or may not require bronchoscopy and lavage of the left lower lobe. We'll continue to follow. Time with Patient: Greater than 30
--- NOTE | 2019-11-11 16:38 | P.PN ---
Subjective Progress Note Date: 11/11/19 This is a 74-year-old female patient who presented with complaints of fever that started on Wednesday progressively increased over the past few days. Patient reports she's had some increased loose stools out of ostomy. Patient also complains of mild upper respiratory symptoms. Patient denies any nausea or vomiting. Patient denies cough or any open wounds Patient has a known past medical history of hepatocellular carcinoma. Additional medical history includes chronic ascites, nonalcoholic liver cirrhosis, diabetes mellitus, hypertension, liver, myocardial infarction, chronic renal disease chronic abdominal pain, diverticular disease with ileostomy, MRSA and VRE. Influenza negative. Leukocyte Estrace. Small amount of leukocyte Estrace noted to urine. Urine and blood cultures have been ordered. Chest x-ray completed showing no evidence for acute pulmonary disease. Abdominal ultrasound completed showing cirrhosis. There appears to be a focal 5 x 5 cm lesion posterior right liver lobe and possible 1.2 cm second lesion in the left liver lobe the setting cirrhosis HCC is not excluded. Mild to moderate abdominal pelvic ascites. Tenderness we'll scarring along the right upper quadrant. At this time blood, urine and lactic acid have been ordered stool for C. diff ordered. Infectious disease consulted. Dr. Figueroa also consulted for possible paracentesis. Patient denies any chest pain or shortness of breath. patient is having some nausea. She denies any urinary burning or frequency On 11/08/2019 patient was seen and examined on the medical floor she is alert and oriented 3 in no apparent distress there is no fever or chills no headache or dizziness no chest pain no shortness of breath no cough no nausea or vomiting no abdominal pain no diarrhea no burning was urination no frequency or urgency and no hematuria. On 11/09/2019 patient is alert and oriented 3. Patient remains on Levaquin and Rocephin for IV antibiotics. Last fever 100.6 on 11/08/2019. Patient denies chest pain or shortness of breath. Patient does have cough or sputum. Patient denies any nausea vomiting or diarrhea. Patient denies any urinary burning or frequency On 11/10/2018 patient is alert and oriented 3. Patient stopping elevated 100.2. Patient remains on IV antibiotic Levaquin and Rocephin per infectious disease. Sputum culture has been ordered. Patient denies any chest pain. Patient is having productive cough. Patient denies nausea vomiting or diarrhea. Patient denies any urinary burning or frequency On 11/11/2019 patient was seen and examined on the medical floor she is alert and oriented 3 in no apparent distress she is still complaining of cough with sputum production and complaining of abdominal pain otherwise she denies any complaints there is no fever or chills no headache or dizziness no chest pain no shortness of breath no nausea or vomiting no diarrhea and no urinary symptoms Objective - Vital Signs Vital signs: Vital Signs Temp 97.7 F 11/11/19 11:57 Pulse 61 11/11/19 11:57 Resp 18 11/11/19 11:57 BP 121/60 11/11/19 11:57 Pulse Ox 100 11/11/19 11:57 Intake & Output 11/10/19 11/11/19 11/11/19 18:59 06:59 18:59 Intake Total 400 150 Balance 400 150 Weight 90.718 kg Intake: Intake, IV Titration 400 150 Amount Sodium Chloride 0.9% 1, 400 150 000 ml @ 50 mls/hr IV . Q20H [facility] Rx#:[id number] Other: Voiding Method Toilet Toilet Toilet # Voids 2 4 # Bowel Movements 2 - Exam In general patient is alert and oriented in no apparent distress HEENT head normocephalic and atraumatic Neck is supple no JVD no goiter no lymphadenopathy Chest exam reveals a few scattered crackles no wheezing Cardiac exam reveals regular heart sounds S1 and S2 no gallops no murmurs Abdomen is soft nontender no organomegaly distended no palpable masses with normal bowel sounds Extremity exam reveals mild edema no cyanosis or clubbing Neurological examination reveals no gross focal deficit - Labs CBC & Chem 7: 11/11/19 06:30 11/11/19 06:30 Labs: Abnormal Lab Results - Last 24 Hours (Table) 11/10/19 11/10/19 11/11/19 Range/Units 17:02 20:05 06:30 RBC (3.80-5.40) m/uL Hgb (11.4-16.0) gm/dL Hct (34.0-46.0) % MCV (80.0-100.0) fL MCH (25.0-35.0) pg Plt Count (150-450) k/uL Lymphocytes # (1.0-4.8) k/uL Macrocytosis Sodium (137-145) mmol/L Chloride (98-107) mmol/L Carbon Dioxide (22-30) mmol/L BUN (7-17) mg/dL Creatinine (0.52-1.04) mg/dL Glucose (74-99) mg/dL POC Glucose (mg/dL) 133 H 183 H (75-99) mg/dL Calcium (8.4-10.2) mg/dL Total Bilirubin (0.2-1.3) mg/dL AST (14-36) U/L Alkaline Phosphatase (38-126) U/L Total Protein (6.3-8.2) g/dL Albumin (3.5-5.0) g/dL Amylase <30 L (30-110) U/L Lipase 16 L (23-300) U/L 11/11/19 11/11/19 11/11/19 Range/Units 06:30 06:30 07:06 RBC 2.85 L (3.80-5.40) m/uL Hgb 10.1 L (11.4-16.0) gm/dL Hct 30.7 L (34.0-46.0) % MCV 107.5 H (80.0-100.0) fL MCH 35.3 H (25.0-35.0) pg Plt Count 86 L (150-450) k/uL Lymphocytes # 0.9 L (1.0-4.8) k/uL Macrocytosis Marked A Sodium 136 L (137-145) mmol/L Chloride 110 H (98-107) mmol/L Carbon Dioxide 19 L (22-30) mmol/L BUN 23 H (7-17) mg/dL Creatinine 1.29 H (0.52-1.04) mg/dL Glucose 162 H (74-99) mg/dL POC Glucose (mg/dL) 160 H (75-99) mg/dL Calcium 7.4 L (8.4-10.2) mg/dL Total Bilirubin 1.5 H (0.2-1.3) mg/dL AST 47 H (14-36) U/L Alkaline Phosphatase 203 H (38-126) U/L Total Protein 5.1 L (6.3-8.2) g/dL Albumin 1.9 L (3.5-5.0) g/dL Amylase (30-110) U/L Lipase (23-300) U/L 11/11/19 Range/Units 11:56 RBC (3.80-5.40) m/uL Hgb (11.4-16.0) gm/dL Hct (34.0-46.0) % MCV (80.0-100.0) fL MCH (25.0-35.0) pg Plt Count (150-450) k/uL Lymphocytes # (1.0-4.8) k/uL Macrocytosis Sodium (137-145) mmol/L Chloride (98-107) mmol/L Carbon Dioxide (22-30) mmol/L BUN (7-17) mg/dL Creatinine (0.52-1.04) mg/dL Glucose (74-99) mg/dL POC Glucose (mg/dL) 199 H (75-99) mg/dL Calcium (8.4-10.2) mg/dL Total Bilirubin (0.2-1.3) mg/dL AST (14-36) U/L Alkaline Phosphatase (38-126) U/L Total Protein (6.3-8.2) g/dL Albumin (3.5-5.0) g/dL Amylase (30-110) U/L Lipase (23-300) U/L Microbiology - Last 24 Hours (Table) 11/07/19 12:45 Anaerobic Culture - Final Ascites Fluid 11/07/19 08:44 Blood Culture - Preliminary Blood No Growth after 96 hours 11/07/19 12:45 Gram Stain - Final Ascites Fluid Body Fluid Culture - Final 11/10/19 11:10 Gram Stain - Preliminary Sputum Assessment and Plan Plan: 1. Febrile illness likely source left lower lobe pneumonia. Chest x-ray negat moi for acute process. Leukocyte esterase small amount in urine noted. Urine and blood cultures ordered. Lactic acid ordered. Influenza negative. C. diff negative. Infectious disease has been consulted. CT of abdomen and pelvis completed cannot pancreatitis involving the head of the pancreas with edema within the small bowel mesentery consider correlate with amylase and lipase. Amylase and lipase within normal limits. Adjacent thickening of the duodenum and stomach left lower normal pneumonia suspected. Patient remains on Rocephin and Levaquin per ID. Blood culture showing no growth. Urine culture pending paracentesis fluid pending. Will order sputum 2. Acute kidney injury. Creatinine slightly elevated at 1.41 and bun 34. We'll hold Aldactone at this time. Lasix changed to torsemide creatinine 1.52 and bun 26 will continue to monitor 3. Moderate amount of abdominal ascites. Abdominal ultrasound completed showing cirrhosis. This appears to be a focal by by 5 cm lesion posterior right liver lobe and possible 1.2 cm lesion of liver lobe the setting of cirrhosis, HC C is not excluded. Mild to moderate abdominal pelvic ascites. Tenderness with guarding on the right upper quadrant. Status post paracentesis 3 L. 4. History of hepatocellular carcinoma. Per GI services recent ultrasound of abdomen did show 5 cm lesion in the left lobe of the liver. However CAT scan done yesterday did not show any liver lesions. May need MRI of the liver to evaluate the liver lesion 5. History of nonalcoholic liver cirrhosis. Per GI services fluid analysis did not show any evidence of spontaneous bacterial peritonitis. 6. History of chronic kidney disease stage III 7. History of chronic elevated ammonia level secondary to hepatocellular carcinoma nonalcoholic liver cirrhosis. Patient maintained on lactulose 8. History of urine colonization with VRE 9. History of depression 10. History of pancytopenia secondary to known hepatocellular carcinoma and l iver cirrhosis 11. History of recurring abdominal ascites 12. Diabetes mellitus type 2. Home meds resumed. A1c has been ordered 13. History of depression and anxiety home meds resumed 14. Sores in mouth. Patient reports that she has follow-up appointment with oral surgeon in regards to this issue Magic mouthwash has been ordered DVT prophylaxis SCDs due to chronic thrombocytopenia. GI prophylaxis Protonix GI and infectious disease service is consulted Blood, sputum and urine cultures ordered
[2019-11-11] MEDS: SODIUM CHLORIDE 0.9% 1,000 ML IV SCH (16:40)
[2019-11-11 17:26] LABS: Glucose,Whole Blood 100 mg/dL (75-99)
[2019-11-11] MEDS: clonazePAM 0.5 MG TAB PO PRN (19:39)
[2019-11-11] MEDS: ONDANSETRON 4 MG/2 ML VIAL IVP PRN (19:49)
[2019-11-11 20:45] LABS: Glucose,Whole Blood 82 mg/dL (75-99)
--- NOTE | 2019-11-11 23:50 | PN ---
PROGRESS NOTE DATE OF SERVICE: 11/11/2019 REASON FOR FOLLOWUP: Fever, likely pneumonia. INTERVAL HISTORY: The patient overall feels better and has improved this morning. High temperature was 98.4. The patient has been breathing comfortably. She has been complaining of more cough and bringing up more sputum. No hemoptysis. No chest pain. No nausea, vomiting. No abdominal pain, no diarrhea. PHYSICAL EXAMINATION: Blood pressure 121/60 with a pulse of 71, temperature 97.7, she is 100% on room air. General description is an elderly female up in the bed in no distress. Respiratory system: Unlabored breathing. Decreased breath sounds in the bases, no wheeze. Heart S1, S2. Regular rate and rhythm. Abdomen soft, no tenderness. LABS: Hemoglobin is 10.1, white count 4.1, BUN of 23, creatinine 1.29. Sputum culture currently pending. DIAGNOSTIC IMPRESSION AND PLAN: Patient with fever, source is likely left lower lobe pneumonia for which the patient is currently covered with Rocephin and Levaquin, to continue. I will monitor her clinical course closely. Follow up with sputum culture and adjust antibiotic if needed. MMODL / IJN: [id number] /
[2019-11-12 02:22] LABS: Glucose,Whole Blood 165 mg/dL (75-99)
[2019-11-12 07:08] LABS: Glucose,Whole Blood 202 mg/dL (75-99)
--- NOTE | 2019-11-12 07:59 | XR ---
EXAMINATION TYPE: XR chest 1V portable DATE OF EXAM: 11/12/2019 COMPARISON: 11/06/2019 HISTORY: Follow-up pneumonia TECHNIQUE: Single frontal view of the chest is obtained. FINDINGS: There is left lower lobe infiltrate and small effusion. Heart size stable. Hypertrophic ch nani of the spine noted. Pneumothorax. Correlate for calcific tendinosis of the left shoulder. No ove rt failure. IMPRESSION: Left lower lobe infiltrate and small effusion. Findings similar to the prior exam.
[2019-11-12] MEDS: DICYCLOMINE 10 MG CAP PO SCH (08:00)
[2019-11-12] MEDS: ISOSORBIDE MONONITRATE ER 30 MG TAB.ER.24H PO SCH (08:00)
[2019-11-12] MEDS: CHOLECALCIFEROL 1,000 UNIT TAB PO SCH (08:00)
[2019-11-12] MEDS: METOPROLOL TARTRATE 12.5 MG TAB PO SCH (08:00)
[2019-11-12] MEDS: FERROUS SULFATE 325 MG TAB PO SCH ×2 (08:00→20:08)
[2019-11-12] MEDS: SUCRALFATE 1 GM TAB PO SCH ×4 (08:00→21:03)
[2019-11-12] MEDS: PANTOPRAZOLE 40 MG TABLET PO SCH (08:00)
[2019-11-12] MEDS: TORSEMIDE 20 MG TAB PO SCH (08:00)
[2019-11-12] MEDS: buPROPion SR 150 MG TABLET.ER PO SCH (08:01)
[2019-11-12] MEDS: MORPHINE SULFATE ER 15 MG TABLET PO SCH ×2 (08:01→20:08)
[2019-11-12] MEDS: MORPHINE SULFATE 4 MG/ML SYRINGE IV PRN ×4 (08:01→21:02)
[2019-11-12] MEDS: INSULIN NPH 300 UNIT/3 ML VIAL SQ SCH ×2 (08:02→17:42)
[2019-11-12] MEDS: MAG HYDROX/AL HYDROX/SIMETH 30 ML, diphenhydrAMINE ELIXIR 75 MG, LIDOCAINE VISCOUS 30 ML PO SCH ×9 (08:02→21:03)
[2019-11-12] MEDS: INSULIN REGULAR 100 UNIT/ML VIAL SQ SCH ×3 (08:02→17:42)
[2019-11-12] MEDS: LACTULOSE 20 GM/30 ML CUP PO SCH ×3 (08:03→20:05)
[2019-11-12 08:04] LABS: Basophils % (A) 0 %; Eosinophils # (A) 0.2 k/uL (0-0.7); Eosinophils % (A) 6 %; HCT 31.1 % (34.0-46.0); HGB 10.3 gm/dL (11.4-16.0); Hypochromasia Slight; Lymphocytes # (A) 0.9 k/uL (1.0-4.8); Lymphocytes % (A) 24 %; MCH 35.8 pg (25.0-35.0); MCHC 33.1 g/dL (31.0-37.0); MCV 108.1 fL (80.0-100.0); Macrocytosis Marked; Mean Platelet Volume 10.3; Monocytes # (A) 0.4 k/uL (0-1.0); Monocytes % (A) 9 %; Neutrophils # (A) 2.3 k/uL (1.3-7.7); Neutrophils % (A) 58 %; RBC 2.88 m/uL (3.80-5.40); RDW 14.7 % (11.5-15.5); WBC 3.9 k/uL (3.8-10.6)
[2019-11-12 08:05] LABS: Albumin 1.9 g/dL (3.5-5.0); Calcium 7.6 mg/dL (8.4-10.2); Potassium 3.8 mmol/L (3.5-5.1); Total Bilirubin 1.5 mg/dL (0.2-1.3); Total Protein 5.1 g/dL (6.3-8.2)
[2019-11-12 08:20] LABS: Platelet Count 95 k/uL (150-450)
--- NOTE | 2019-11-12 10:18 | P.PN ---
Subjective Progress Note Date: 11/12/19 This is a 74-year-old female patient who presented with complaints of fever that started on Wednesday progressively increased over the past few days. Patient reports she's had some increased loose stools out of ostomy. Patient also complains of mild upper respiratory symptoms. Patient denies any nausea or vomiting. Patient denies cough or any open wounds Patient has a known past medical history of hepatocellular carcinoma. Additional medical history includes chronic ascites, nonalcoholic liver cirrhosis, diabetes mellitus, hypertension, liver, myocardial infarction, chronic renal disease chronic abdominal pain, diverticular disease with ileostomy, MRSA and VRE. Influenza negative. Leukocyte Estrace. Small amount of leukocyte Estrace noted to urine. Urine and blood cultures have been ordered. Chest x-ray completed showing no evidence for acute pulmonary disease. Abdominal ultrasound completed showing cirrhosis. There appears to be a focal 5 x 5 cm lesion posterior right liver lobe and possible 1.2 cm second lesion in the left liver lobe the setting cirrhosis HCC is not excluded. Mild to moderate abdominal pelvic ascites. Tenderness we'll scarring along the right upper quadrant. At this time blood, urine and lactic acid have been ordered stool for C. diff ordered. Infectious disease consulted. Dr. Figueroa also consulted for possible paracentesis. Patient denies any chest pain or shortness of breath. patient is having some nausea. She denies any urinary burning or frequency On 11/08/2019 patient was seen and examined on the medical floor she is alert and oriented 3 in no apparent distress there is no fever or chills no headache or dizziness no chest pain no shortness of breath no cough no nausea or vomiting no abdominal pain no diarrhea no burning was urination no frequency or urgency and no hematuria. On 11/09/2019 patient is alert and oriented 3. Patient remains on Levaquin and Rocephin for IV antibiotics. Last fever 100.6 on 11/08/2019. Patient denies chest pain or shortness of breath. Patient does have cough or sputum. Patient denies any nausea vomiting or diarrhea. Patient denies any urinary burning or frequency On 11/10/2018 patient is alert and oriented 3. Patient stopping elevated 100.2. Patient remains on IV antibiotic Levaquin and Rocephin per infectious disease. Sputum culture has been ordered. Patient denies any chest pain. Patient is having productive cough. Patient denies nausea vomiting or diarrhea. Patient denies any urinary burning or frequency On 11/11/2019 patient was seen and examined on the medical floor she is alert and oriented 3 in no apparent distress she is still complaining of cough with sputum production and complaining of abdominal pain otherwise she denies any complaints there is no fever or chills no headache or dizziness no chest pain no shortness of breath no nausea or vomiting no diarrhea and no urinary symptoms On 11/12/2019 patient is alert and oriented 3 she is complaining of cough with green sputum production, she is complaining of pain in the right upper quadrant , she is complaining of generalized weakness otherwise she denies any complaints there is no fever or chills no headache or dizziness no chest pain no nausea or vomiting no abdominal pain no diarrhea no burning was urination no frequency or urgency and no hematuria Objective - Vital Signs Vital signs: Vital Signs Temp 98.6 F 11/12/19 05:00 Pulse 62 11/12/19 05:00 Resp 18 11/12/19 05:00 BP 93/52 11/12/19 05:00 Pulse Ox 98 11/12/19 05:00 Intake & Output 11/11/19 11/12/19 11/12/19 18:59 06:59 18:59 Intake Total 300 Balance 300 Intake: Intake, IV Titration 300 Amount Sodium Chloride 0.9% 1, 300 000 ml @ 50 mls/hr IV . Q20H [facility] Rx#:[id number] Other: Voiding Method Toilet Toilet # Voids 4 # Bowel Movements 2 - Exam In general patient is alert and oriented in no apparent distress HEENT head normocephalic and atraumatic Neck is supple no JVD no goiter no lymphadenopathy Chest exam reveals a few scattered crackles no wheezing Cardiac exam reveals regular heart sounds S1 and S2 no gallops no murmurs Abdomen is soft nontender no organomegaly distended no palpable masses with normal bowel sounds Extremity exam reveals mild edema no cyanosis or clubbing Neurological examination reveals no gross focal deficit - Labs CBC & Chem 7: 11/12/19 06:29 11/12/19 06:29 Labs: Abnormal Lab Results - Last 24 Hours (Table) 11/11/19 11/11/19 11/11/19 Range/Units 06:30 06:30 06:30 RBC 2.85 L (3.80-5.40) m/uL Hgb 10.1 L (11.4-16.0) gm/dL Hct 30.7 L (34.0-46.0) % MCV 107.5 H (80.0-100.0) fL MCH 35.3 H (25.0-35.0) pg Plt Count 86 L (150-450) k/uL Lymphocytes # 0.9 L (1.0-4.8) k/uL Macrocytosis Marked A Sodium 136 L (137-145) mmol/L Chloride 110 H (98-107) mmol/L Carbon Dioxide 19 L (22-30) mmol/L BUN 23 H (7-17) mg/dL Creatinine 1.29 H (0.52-1.04) mg/dL Glucose 162 H (74-99) mg/dL POC Glucose (mg/dL) (75-99) mg/dL Calcium 7.4 L (8.4-10.2) mg/dL Total Bilirubin 1.5 H (0.2-1.3) mg/dL AST 47 H (14-36) U/L Alkaline Phosphatase 203 H (38-126) U/L Total Protein 5.1 L (6.3-8.2) g/dL Albumin 1.9 L (3.5-5.0) g/dL Amylase <30 L (30-110) U/L Lipase 16 L (23-300) U/L 11/11/19 11/11/19 11/12/19 Range/Units 11:56 17:15 02:20 RBC (3.80-5.40) m/uL Hgb (11.4-16.0) gm/dL Hct (34.0-46.0) % MCV (80.0-100.0) fL MCH (25.0-35.0) pg Plt Count (150-450) k/uL Lymphocytes # (1.0-4.8) k/uL Macrocytosis Sodium (137-145) mmol/L Chloride (98-107) mmol/L Carbon Dioxide (22-30) mmol/L BUN (7-17) mg/dL Creatinine (0.52-1.04) mg/dL Glucose (74-99) mg/dL POC Glucose (mg/dL) 199 H 100 H 165 H (75-99) mg/dL Calcium (8.4-10.2) mg/dL Total Bilirubin (0.2-1.3) mg/dL AST (14-36) U/L Alkaline Phosphatase (38-126) U/L Total Protein (6.3-8.2) g/dL Albumin (3.5-5.0) g/dL Amylase (30-110) U/L Lipase (23-300) U/L 11/12/19 Range/Units 07:07 RBC (3.80-5.40) m/uL Hgb (11.4-16.0) gm/dL Hct (34.0-46.0) % MCV (80.0-100.0) fL MCH (25.0-35.0) pg Plt Count (150-450) k/uL Lymphocytes # (1.0-4.8) k/uL Macrocytosis Sodium (137-145) mmol/L Chloride (98-107) mmol/L Carbon Dioxide (22-30) mmol/L BUN (7-17) mg/dL Creatinine (0.52-1.04) mg/dL Glucose (74-99) mg/dL POC Glucose (mg/dL) 202 H (75-99) mg/dL Calcium (8.4-10.2) mg/dL Total Bilirubin (0.2-1.3) mg/dL AST (14-36) U/L Alkaline Phosphatase (38-126) U/L Total Protein (6.3-8.2) g/dL Albumin (3.5-5.0) g/dL Amylase (30-110) U/L Lipase (23-300) U/L Microbiology - Last 24 Hours (Table) 11/07/19 12:45 Anaerobic Culture - Final Ascites Fluid 11/07/19 08:44 Blood Culture - Preliminary Blood No Growth after 96 hours 11/07/19 12:45 Gram Stain - Final Ascites Fluid Body Fluid Culture - Final Assessment and Plan Plan: 1. Febrile illness likely source left lower lobe pneumonia. Chest x-ray negative for acute process. Leukocyte esterase small amount in urine noted. Urine and blood cultures ordered. Lactic acid ordered. Influenza negative. C. diff negative. Infectious disease has been consulted. CT of abdomen and pelvis completed cannot pancreatitis involving the head of the pancreas with edema within the small bowel mesentery consider correlate with amylase and lipase. Amylase and lipase within normal limits. Adjacent thickening of the duodenum and stomach left lower normal pneumonia suspected. Patient remains on Rocephin and Levaquin per ID. Blood culture showing no growth. Urine culture pending paracentesis fluid pending. Will order sputum 2. Acute kidney injury. Creatinine slightly elevated at 1.41 and bun 34. We'll hold Aldactone at this time. Lasix changed to torsemide creatinine 1.52 and bun 26 will continue to monitor 3. Moderate amount of abdominal ascites. Abdominal ultrasound completed showing cirrhosis. This appears to be a focal by by 5 cm lesion posterior right liver lobe and possible 1.2 cm lesion of liver lobe the setting of cirrhosis, HCC is not excluded. Mild to moderate abdominal pelvic ascites. Tenderness with guarding on the right upper quadrant. Status post paracentesis 3 L. 4. History of hepatocellular carcinoma. Per GI services recent ultrasound of abdomen did show 5 cm lesion in the left lobe of the liver. However CAT scan done yesterday did not show any liver lesions. May need MRI of the liver to evaluate the liver lesion 5. History of nonalcoholic liver cirrhosis. Per GI services fluid analysis did not show any evidence of spontaneous bacterial peritonitis. 6. History of chronic kidney disease stage III 7. History of chronic elevated ammonia level secondary to hepatocellular carcinoma nonalcoholic liver cirrhosis. Patient maintained on lactulose 8. History of urine colonization with VRE 9. History of depression 10. History of pancytopenia secondary to known hepatocellular carcinoma and liver cirrhosis 11. History of recurring abdominal ascites 12. Diabetes mellitus type 2. Home meds resumed. A1c has been ordered 13. History of depression and anxiety home meds resumed 14. Sores in mouth. Patient reports that she has follow-up appointment with oral surgeon in regards to this issue Magic mouthwash has been ordered DVT prophylaxis SCDs due to chronic thrombocytopenia. GI prophylaxis Protonix GI and infectious disease service is consulted Blood, sputum and urine cultures ordered
[2019-11-12 11:16] LABS: Glucose,Whole Blood 193 mg/dL (75-99)
[2019-11-12] MEDS: LEVOFLOXACIN 250 MG TAB PO SCH (12:09)
[2019-11-12] MEDS: SODIUM CHLORIDE 0.9% 1,000 ML IV SCH (12:39)
--- NOTE | 2019-11-12 12:45 | P.PN ---
Subjective Progress Note Date: 11/12/19 Principal diagnosis: Acute left lower lobe pneumonia and hepatocellular carcinoma as well as ascites and liver cirrhosis. This is a 74-year-old female with history of multiple medical problems including hepatocellular liver cancer, nonalcoholic liver cirrhosis, seen in the ER on 11/06/2019, patient was complaining of 2 days history of nonproductive cough, nasal congestion, chills, and she had a temp as high as 102. She was also complaining of diffuse abdominal cramping with mild abdominal distention. She was concerned that she may require paracentesis for her recurrent ascites. Patient had a previous history of colostomy secondary to diverticulitis. She has been noticing some bright red blood in her ostomy bag that day prior to admission. Patient had no urinary symptoms although she had previous history of recurrent urinary tract infections. Patient was admitted with the impression of febrile illness, she had a relatively normal chest x-ray on admission, she was also diagnosed with acute kidney injury, and diuretics were placed on hold. She had moderate amount of abdominal ascites, and her other medical problems on admission included nonalcoholic liver cirrhosis, chronic colonization of urine with VRE, and type 2 diabetes. Patient was seen by infectious disease on consultation, and he was concerned about ascites and spontaneous bacterial peritonitis or possible other intra-abdominal source of infection. Patient was placed on Levaquin and Rocephin. Her urine came back positive for Enterococcus faecalis, but it was felt to be mostly colonization. Her paracentesis fluid came back negative for infection. On 11/08/2019, patient had a CT of the abdomen and pelvis, and it clearly showed left lower lobe infiltrate consistent with pneumonia involving the left lower lobe. There was small pleural effusion noted. Considering the abnormality on the CT of the abdomen and pelvis showing infiltrate in the left lower lobe, this consult was initiated. Patient presented initially with pulmonary symptoms, however her chest x-ray on admission was clear. Patient describes cough, it is productive with yellow phlegm, she had a T-max of 99.1, presently afebrile. She is on room air, and O2 saturation is 100%. Reevaluated today on 11/12/2019, patient seems to be feeling better today, less cough, less shortness of breath, remains on antibiotics as per infectious disease on the case. Chest x-ray this morning showed minimal left lower lobe infiltrate and small tiny effusion. Clinically the patient is feeling better. WBC count is 3.9 hemoglobin is 10.3 electrolytes are normal renal profile showed a creatinine of 1.31, improving compared to the last few days she had a baseline of 1.59 on admission. Her total bilirubin is also improving from 3.3 down to 1.5 today. Objective - Vital Signs Vital signs: Vital Signs Temp 98.8 F 11/12/19 11:16 Pulse 87 11/12/19 11:16 Resp 17 11/12/19 11:16 BP 95/54 11/12/19 11:16 Pulse Ox 100 11/12/19 11:16 Intake & Output 11/11/19 11/12/19 11/12/19 18:59 06:59 18:59 Intake Total 300 Balance 300 Intake: Intake, IV Titration 300 Amount Sodium Chloride 0.9% 1, 300 000 ml @ 50 mls/hr IV . Q20H [facility] Rx#:[id number] Other: Voiding Method Toilet Toilet Toilet # Voids 4 # Bowel Movements 2 - Exam Physical Exam: Revealed 74-year-old female, pleasant, in no distress. Head: Atraumatic, normocephalic. HEENT:[Neck is supple.] [No neck masses.] [No thyromegaly.] [No JVD.] Chest: [Minimal crackles at the left base, otherwise clear bilaterally. Cardiac Exam: [Normal S1 and S2, no S3 gallop, no murmur.] Abdomen: [Soft, nontender, no megaly, left lower quadrant ostomy noted. Extremities: [No clubbing, no edema, no cyanosis.] Neurological Exam: [No focal neurologic deficit.] Alert and oriented 3. Psychiatric: Normal mood, affect and normal mental status examination. Skin: No rashes. - Labs CBC & Chem 7: 11/12/19 06:29 11/12/19 06:29 Labs: Abnormal Lab Results - Last 24 Hours (Table) 11/11/19 11/12/19 11/12/19 Range/Units 17:15 02:20 06:29 RBC 2.88 L (3.80-5.40) m/uL Hgb 10.3 L (11.4-16.0) gm/dL Hct 31.1 L (34.0-46.0) % MCV 108.1 H (80.0-100.0) fL MCH 35.8 H (25.0-35.0) pg Macrocytosis Marked A Sodium (137-145) mmol/L Chloride (98-107) mmol/L Carbon Dioxide (22-30) mmol/L BUN (7-17) mg/dL Creatinine (0.52-1.04) mg/dL Glucose (74-99) mg/dL POC Glucose (mg/dL) 100 H 165 H (75-99) mg/dL Calcium (8.4-10.2) mg/dL Total Bilirubin (0.2-1.3) mg/dL AST (14-36) U/L Alkaline Phosphatase (38-126) U/L Total Protein (6.3-8.2) g/dL Albumin (3.5-5.0) g/dL 11/12/19 11/12/19 11/12/19 Range/Units 06:29 07:07 11:15 RBC (3.80-5.40) m/uL Hgb (11.4-16.0) gm/dL Hct (34.0-46.0) % MCV (80.0-100.0) fL MCH (25.0-35.0) pg Macrocytosis Sodium 135 L (137-145) mmol/L Chloride 110 H (98-107) mmol/L Carbon Dioxide 19 L (22-30) mmol/L BUN 22 H (7-17) mg/dL Creatinine 1.31 H (0.52-1.04) mg/dL Glucose 209 H (74-99) mg/dL POC Glucose (mg/dL) 202 H 193 H (75-99) mg/dL Calcium 7.6 L (8.4-10.2) mg/dL Total Bilirubin 1.5 H (0.2-1.3) mg/dL AST 51 H (14-36) U/L Alkaline Phosphatase 264 H (38-126) U/L Total Protein 5.1 L (6.3-8.2) g/dL Albumin 1.9 L (3.5-5.0) g/dL Microbiology - Last 24 Hours (Table) 11/10/19 11:10 Gram Stain - Preliminary Sputum Sputum Culture - Preliminary Presumptive Staph aureus 11/07/19 08:44 Blood Culture - Preliminary Blood No Growth after 120 hours 11/07/19 12:45 Anaerobic Culture - Final Ascites Fluid 11/07/19 12:45 Gram Stain - Final Ascites Fluid Body Fluid Culture - Final Assessment and Plan Assessment: Impression: Acute left lower lobe pneumonia, likely community-acquired, not seen on her initial chest x-ray, but clearly seen on CT of the abdomen and pelvis. Chronic abdominal ascites with history of liver cirrhosis. 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 Reviewed and discussed her chest x-ray from today. Continue antibiotics as per infectious disease on the case, Continue to address her liver issues as documented above. Continue to monitor renal status. Continue to monitor CBC and continue to control her sugars. Once the patient is cleared by other consultants, she could be discharged home, and follow-up with me on outpatient basis on her left lower lobe pneumonia.. We'll continue to follow. Time with Patient: Less than 30
[2019-11-12 13:33] LABS: Poikilocytosis (M) Present
[2019-11-12] MEDS ORDERED: VANCOMYCIN IV PER PHARMACY 1 EACH MISC MISCELLANE PRN (15:02)
[2019-11-12] MEDS: VANCOMYCIN 1,500 MG in SODIUM CHLORIDE 0.9% 250 ML IVPB SCH (16:19)
--- NOTE | 2019-11-12 17:03 | PN ---
PROGRESS NOTE DATE OF SERVICE: 11/12/2019. REASON FOR FOLLOWUP: Pneumonia. INTERVAL HISTORY: The patient is currently afebrile. Patient is awake, breathing comfortably. Denies having chest pain. Did have a cough and bringing up some sputum. No nausea, vomiting, no abdominal pain, no diarrhea. PHYSICAL EXAMINATION: Blood pressure 95/54 with a pulse of 87, temperature 98.8. She is 100% on room air. General description is an elderly female up in the bed in no distress. Respiratory system: Unlabored breathing with decreased breath sounds in the bases, with no wheeze. Heart S1, S2. Regular rate and rhythm. Abdomen soft, no tenderness. LABS: Hemoglobin 10.2, white count 3.9, BUN of 22, creatinine 1.31. Sputum now showing presumptive Staph aureus. DIAGNOSTIC IMPRESSION AND PLAN: Patient admitted to the hospital with fever, source is pneumonia. The patient seemed to have shown clinical improvement on Rocephin, now with sputum showing Staph aureus, could be MSSA, MRSA, not entirely excluded. Vancomycin will be added while waiting for the final ID of this Staph Aureus and will monitor clinical course closely as well as kidney function. MMODL / IJN: [id number] /
[2019-11-12 17:13] LABS: Glucose,Whole Blood 87 mg/dL (75-99)
[2019-11-12 20:02] LABS: Glucose,Whole Blood 86 mg/dL (75-99)
[2019-11-13 07:14] LABS: Glucose,Whole Blood 113 mg/dL (75-99)
[2019-11-13] MEDS: MAG HYDROX/AL HYDROX/SIMETH 30 ML, diphenhydrAMINE ELIXIR 75 MG, LIDOCAINE VISCOUS 30 ML PO SCH ×9 (08:56→21:34)
[2019-11-13] MEDS: LACTULOSE 20 GM/30 ML CUP PO SCH ×4 (08:56→21:55)
[2019-11-13] MEDS: buPROPion SR 150 MG TABLET.ER PO SCH (08:58)
[2019-11-13] MEDS: METOPROLOL TARTRATE 12.5 MG TAB PO SCH (08:58)
[2019-11-13] MEDS: FERROUS SULFATE 325 MG TAB PO SCH ×2 (08:58→21:34)
[2019-11-13] MEDS: LEVOFLOXACIN 250 MG TAB PO SCH (08:59)
[2019-11-13] MEDS: MORPHINE SULFATE ER 15 MG TABLET PO SCH ×3 (08:59→21:55)
[2019-11-13] MEDS: SUCRALFATE 1 GM TAB PO SCH ×4 (08:59→21:34)
[2019-11-13] MEDS: ISOSORBIDE MONONITRATE ER 30 MG TAB.ER.24H PO SCH (08:59)
[2019-11-13] MEDS: DICYCLOMINE 10 MG CAP PO SCH (08:59)
[2019-11-13] MEDS: PANTOPRAZOLE 40 MG TABLET PO SCH (08:59)
[2019-11-13] MEDS: INSULIN NPH 300 UNIT/3 ML VIAL SQ SCH ×2 (09:00→17:41)
[2019-11-13] MEDS: INSULIN REGULAR 100 UNIT/ML VIAL SQ SCH ×3 (09:00→17:42)
[2019-11-13] MEDS: CHOLECALCIFEROL 1,000 UNIT TAB PO SCH (09:00)
[2019-11-13 09:16] LABS: Albumin 2.3 g/dL (3.5-5.0); Calcium 8.1 mg/dL (8.4-10.2); Total Bilirubin 2.3 mg/dL (0.2-1.3)
[2019-11-13 09:48] LABS: Basophils % (A) 0 %; Eosinophils # (A) 0.3 k/uL (0-0.7); Eosinophils % (A) 5 %; HCT 33.6 % (34.0-46.0); HGB 11.1 gm/dL (11.4-16.0); Hypochromasia Slight; Lymphocytes % (A) 20 %; MCH 35.8 pg (25.0-35.0); MCHC 32.9 g/dL (31.0-37.0); MCV 108.7 fL (80.0-100.0); Macrocytosis Marked; Monocytes # (A) 0.4 k/uL (0-1.0); Monocytes % (A) 8 %; Neutrophils # (A) 3.2 k/uL (1.3-7.7); Neutrophils % (A) 64 %; Platelet Count 107 k/uL (150-450); RBC 3.09 m/uL (3.80-5.40); RDW 14.6 % (11.5-15.5)
[2019-11-13] MEDS: VANCOMYCIN 1,500 MG in SODIUM CHLORIDE 0.9% 250 ML IVPB SCH ×2 (10:00→23:32)
[2019-11-13] MEDS: TORSEMIDE 20 MG TAB PO SCH (10:00)
--- NOTE | 2019-11-13 10:50 | P.PN ---
Subjective Progress Note Date: 11/13/19 This is a 74-year-old female patient who presented with complaints of fever that started on Wednesday progressively increased over the past few days. Patient reports she's had some increased loose stools out of ostomy. Patient also complains of mild upper respiratory symptoms. Patient denies any nausea or vomiting. Patient denies cough or any open wounds Patient has a known past medical history of hepatocellular carcinoma. Additional medical history includes chronic ascites, nonalcoholic liver cirrhosis, diabetes mellitus, hypertension, liver, myocardial infarction, chronic renal disease chronic abdominal pain, diverticular disease with ileostomy, MRSA and VRE. Influenza negative. Leukocyte Estrace. Small amount of leukocyte Estrace noted to urine. Urine and blood cultures have been ordered. Chest x-ray completed showing no evidence for acute pulmonary disease. Abdominal ultrasound completed showing cirrhosis. There appears to be a focal 5 x 5 cm lesion posterior right liver lobe and possible 1.2 cm second lesion in the left liver lobe the setting cirrhosis HCC is not excluded. Mild to moderate abdominal pelvic ascites. Tenderness we'll scarring along the right upper quadrant. At this time blood, urine and lactic acid have been ordered stool for C. diff ordered. Infectious disease consulted. Dr. Figueroa also consulted for possible paracentesis. Patient denies any chest pain or shortness of breath. patient is having some nausea. She denies any urinary burning or frequency On 11/08/2019 patient was seen and examined on the medical floor she is alert and oriented 3 in no apparent distress there is no fever or chills no headache or dizziness no chest pain no shortness of breath no cough no nausea or vomiting no abdominal pain no diarrhea no burning was urination no frequency or urgency and no hematuria. On 11/09/2019 patient is alert and oriented 3. Patient remains on Levaquin and Rocephin for IV antibiotics. Last fever 100.6 on 11/08/2019. Patient denies chest pain or shortness of breath. Patient does have cough or sputum. Patient denies any nausea vomiting or diarrhea. Patient denies any urinary burning or frequency On 11/10/2018 patient is alert and oriented 3. Patient stopping elevated 100.2. Patient remains on IV antibiotic Levaquin and Rocephin per infectious disease. Sputum culture has been ordered. Patient denies any chest pain. Patient is having productive cough. Patient denies nausea vomiting or diarrhea. Patient denies any urinary burning or frequency On 11/11/2019 patient was seen and examined on the medical floor she is alert and oriented 3 in no apparent distress she is still complaining of cough with sputum production and complaining of abdominal pain otherwise she denies any complaints there is no fever or chills no headache or dizziness no chest pain no shortness of breath no nausea or vomiting no diarrhea and no urinary symptoms On 11/12/2019 patient is alert and oriented 3 she is complaining of cough with green sputum production, she is complaining of pain in the right upper quadrant , she is complaining of generalized weakness otherwise she denies any complaints there is no fever or chills no headache or dizziness no chest pain no nausea or vomiting no abdominal pain no diarrhea no burning was urination no frequency or urgency and no hematuria On 11/13/2019 patient is alert and oriented 3. Patient is still complaining of increased sputum production and cough. Patient overall states she does feel improved. Per infectious disease concerns for possible MRSA in sputum. Awaiting final sputum culture. Patient covered with vancomycin. Patient has been afebrile over the past 48 hours. Patient denies chest pain or shortness breath. Patient denies nausea vomiting or diarrhea. Patient denies any urinary burning or frequency Objective - Vital Signs Vital signs: Vital Signs Temp 97.8 F 11/13/19 05:14 Pulse 62 11/13/19 05:14 Resp 16 11/13/19 05:14 BP 101/62 11/13/19 05:14 Pulse Ox 97 11/13/19 05:14 Intake & Output 11/12/19 11/13/19 11/13/19 18:59 06:59 18:59 Intake Total 1860 575 Balance 1860 575 Intake: Intake, IV Titration 600 575 Amount Sodium Chloride 0.9% 1, 550 575 000 ml @ 50 mls/hr IV . Q20H JENNY Rx#:[id number] cefTRIAXone 2 gm In 50 Sodium Chloride 0.9% 50 ml @ 100 mls/hr IVPB Q24HR JENNY Rx#:[id number] Oral 1260 Other: Voiding Method Toilet Toilet Toilet # Voids 4 # Bowel Movements 1 - Exam Head normocephalic Neck supple Lungs clear to auscultation bilaterally no wheezing or crackles Heart regular rate and rhythm S1-S2, no rub or gallop Abdomen is soft nontender nondistended positive bowel sounds no hepatosplenomegaly. Left lower quadrant ostomy Extremities no edema Neuro alert and orientated to 3 - Labs CBC & Chem 7: 11/13/19 07:52 11/13/19 07:52 Labs: Abnormal Lab Results - Last 24 Hours (Table) 11/12/19 11/12/19 11/13/19 Range/Units 06:29 11:15 07:12 RBC 2.88 L (3.80-5.40) m/uL Hgb 10.3 L (11.4-16.0) gm/dL Hct 31.1 L (34.0-46.0) % MCV 108.1 H (80.0-100.0) fL MCH 35.8 H (25.0-35.0) pg Plt Count 95 L (150-450) k/uL Lymphocytes # 0.9 L (1.0-4.8) k/uL Macrocytosis Marked A Sodium (137-145) mmol/L Chloride (98-107) mmol/L Carbon Dioxide (22-30) mmol/L BUN (7-17) mg/dL Creatinine (0.52-1.04) mg/dL Glucose (74-99) mg/dL POC Glucose (mg/dL) 193 H 113 H (75-99) mg/dL Calcium (8.4-10.2) mg/dL Total Bilirubin (0.2-1.3) mg/dL AST (14-36) U/L Alkaline Phosphatase (38-126) U/L Total Protein (6.3-8.2) g/dL Albumin (3.5-5.0) g/dL 11/13/19 11/13/19 Range/Units 07:52 07:52 RBC 3.09 L (3.80-5.40) m/uL Hgb 11.1 L (11.4-16.0) gm/dL Hct 33.6 L (34.0-46.0) % MCV 108.7 H (80.0-100.0) fL MCH 35.8 H (25.0-35.0) pg Plt Count 107 L (150-450) k/uL Lymphocytes # (1.0-4.8) k/uL Macrocytosis Marked A Sodium 136 L (137-145) mmol/L Chloride 108 H (98-107) mmol/L Carbon Dioxide 20 L (22-30) mmol/L BUN 25 H (7-17) mg/dL Creatinine 1.35 H (0.52-1.04) mg/dL Glucose 104 H (74-99) mg/dL POC Glucose (mg/dL) (75-99) mg/dL Calcium 8.1 L (8.4-10.2) mg/dL Total Bilirubin 2.3 H (0.2-1.3) mg/dL AST 61 H (14-36) U/L Alkaline Phosphatase 270 H (38-126) U/L Total Protein 6.0 L (6.3-8.2) g/dL Albumin 2.3 L (3.5-5.0) g/dL Microbiology - Last 24 Hours (Table) 11/10/19 11:10 Gram Stain - Preliminary Sputum Sputum Culture - Preliminary Presumptive Staph aureus 11/07/19 08:44 Blood Culture - Preliminary Blood No Growth after 120 hours Assessment and Plan Assessment: 1. Febrile illness likely source left lower lobe pneumonia. Chest x-ray negative for acute process. Leukocyte esterase small amount in urine noted. Urine and blood cultures ordered. Lactic acid ordered. Influenza negative. C. diff negative. Infectious disease has been consulted. CT of abdomen and pelvis completed cannot pancreatitis involving the head of the pancreas with edema within the small bowel mesentery consider correlate with amylase and lipase. Amylase and lipase within normal limits. Adjacent thickening of the duodenum and stomach left lower normal pneumonia suspected. Patient remains on Rocephin and Levaquin per ID. Blood culture showing no growth. Urine culture pending paracentesis fluid pending. Sputum culture showing staph aureus could be MRSA versus MSSA. Patient maintained on Vanco until final culture is completed 2. Acute kidney injury. Creatinine slightly elevated at 1.41 and bun 34. We'll hold Aldactone at this time. Lasix changed to torsemide creatinine 1.52 and bun 26 will continue to monitor 3. Moderate amount of abdominal ascites. Abdominal ultrasound completed showing cirrhosis. This appears to be a focal by by 5 cm lesion posterior right liver lobe and possible 1.2 cm lesion of liver lobe the setting of cirrhosis, HCC is not excluded. Mild to moderate abdominal pelvic ascites. Tenderness with guarding on the right upper quadrant. Status post paracentesis 3 L. 4. History of hepatocellular carcinoma. Per GI services recent ultrasound of abdomen did show 5 cm lesion in the left lobe of the liver. However CAT scan done yesterday did not show any liver lesions. May need MRI of the liver to evaluate the liver lesion 5. History of nonalcoholic liver cirrhosis. Per GI services fluid analysis did not show any evidence of spontaneous bacterial peritonitis. 6. History of chronic kidney disease stage III 7. History of chronic elevated ammonia level secondary to hepatocellular carcinoma nonalcoholic liver cirrhosis. Patient maintained on lactulose 8. History of urine colonization with VRE 9. History of depression 10. History of pancytopenia secondary to known hepatocellular carcinoma and liver cirrhosis 11. History of recurring abdominal ascites 12. Diabetes mellitus type 2. Home meds resumed. A1c has been ordered 13. History of depression and anxiety home meds resumed 14. Sores in mouth. Patient reports that she has follow-up appointment with oral surgeon in regards to this issue Magic mouthwash has been ordered DVT prophylaxis SCDs due to chronic thrombocytopenia. GI prophylaxis Protonix GI, pulmonary and infectious disease service is consulted Blood, sputum and urine cultures pending I performed an examination of the patient and discussed their management with the Nurse Practitioner. I have reviewed the Nurse Practitioner's notes and agree with the documented findings and plan of care
[2019-11-13 11:41] LABS: Glucose,Whole Blood 201 mg/dL (75-99)
--- NOTE | 2019-11-13 14:45 | P.PN ---
Subjective Progress Note Date: 11/13/19 Principal diagnosis: Acute left lower lobe pneumonia and hepatocellular carcinoma as well as ascites and liver cirrhosis This is a 74-year-old female with history of multiple medical problems including hepatocellular liver cancer, nonalcoholic liver cirrhosis, seen in the ER on 01/07/2019, patient was complaining of 2 days history of nonproductive cough, nasal congestion, chills, and she had a temp as high as 102. She was also complaining of diffuse abdominal cramping with mild abdominal distention. She was concerned that she may require paracentesis for her recurrent ascites. Patient had a previous history of colostomy secondary to diverticulitis. She has been noticing some bright red blood in her ostomy bag that day prior to admission. Patient had no urinary symptoms although she had previous history of recurrent urinary tract infections. Patient was admitted with the impression of febrile illness, she had a relatively normal chest x-ray on admission, she was also diagnosed with acute kidney injury, and diuretics were placed on hold. She had moderate amount of abdominal ascites, and her other medical problems on admission included nonalcoholic liver cirrhosis, chronic colonization of urine with VRE, and type 2 diabetes. Patient was seen by infectious disease on consultation, and he was concerned about ascites and spontaneous bacterial peritonitis or possible other intra-abdominal source of infection. Patient was placed on Levaquin and Rocephin. Her urine came back positive for Enterococcus faecalis, but it was felt to be mostly colonization. Her paracentesis fluid came back negative for infection. On 11/08/2019, patient had a CT of the ab domen and pelvis, and it clearly showed left lower lobe infiltrate consistent with pneumonia involving the left lower lobe. There was small pleural effusion noted. Considering the abnormality on the CT of the abdomen and pelvis showing infiltrate in the left lower lobe, this consult was initiated. Patient presented initially with pulmonary symptoms, however her chest x-ray on admission was clear. Patient describes cough, it is productive with yellow phlegm, she had a T-max of 99.1, presently afebrile. She is on room air, and O2 saturation is 100%. Reevaluated today on 11/12/2019, patient seems to be feeling better today, less cough, less shortness of breath, remains on antibiotics as per infectious disease on the case. Chest x-ray this morning showed minimal left lower lobe infiltrate and small tiny effusion. Clinically the patient is feeling better. WBC count is 3.9 hemoglobin is 10.3 electrolytes are normal renal profile showed a creatinine of 1.31, improving compared to the last few days she had a baseline of 1.59 on admission. Her total bilirubin is also improving from 3.3 down to 1.5 today. On 11/13/2019 patient seen in follow-up on medical surgical floor. She is awake and alert, in no acute distress, she is currently on room air, she states she is feeling better, breathing easier. Pulse ox on room is 100%, hemodynamically stable, afebrile, respirations are nonlabored, she is on a combination of Rocephin, Levaquin, and vancomycin. No significant cough or congestion. Sputum culture was positive for MRSA, and urine culture was positive for Enterococcus faecalis. Today's labs have been reviewed, showing white blood cell count of 5.0, hemoglobin of 11.1, sodium of 136, potassium is 4.0, chloride is 108, CO2 is 20, B1 is 25 creatinine is 1.35 Objective - Vital Signs Vital signs: Vital Signs Temp 98 F 11/13/19 11:55 Pulse 60 11/13/19 11:55 Resp 18 11/13/19 11:55 BP 93/54 11/13/19 11:55 Pulse Ox 100 11/13/19 11:55 Intake & Output 11/12/19 11/13/19 11/13/19 18:59 06:59 18:59 Intake Total 1860 575 Balance 1860 575 Intake: Intake, IV Titration 600 575 Amount Sodium Chloride 0.9% 1, 550 575 000 ml @ 50 mls/hr IV . Q20H JENNY Rx#:[id number] cefTRIAXone 2 gm In 50 Sodium Chloride 0.9% 50 ml @ 100 mls/hr IVPB Q24HR JENNY Rx#:[id number] Oral 1260 Other: Voiding Method Toilet Toilet Toilet # Voids 4 # Bowel Movements 1 - Exam GENERAL EXAM: Alert, pleasant, 74-year-old white female, on room air, with a pulse ox of 100% comfortable in no apparent distress. HEAD: Normocephalic/atraumatic. EYES: Normal reaction of pupils, equal size. Conjunctiva pink, sclera white. NOSE: Clear with pink turbinates. THROAT: No erythema or exudates. NECK: No masses, no JVD, no thyroid enlargement, no adenopathy. CHEST: No chest wall deformity. Symmetrical expansion. LUNGS: Equal air entry with no crackles, wheeze, rhonchi or dullness. CVS: Regular rate and rhythm, normal S1 and S2, no gallops, no murmurs, no rubs ABDOMEN: Soft, nontender. No hepatosplenomegaly, normal bowel sounds, no guarding or rigidity. EXTREMITIES: No clubbing, no edema, no cyanosis, 2+ pulses and upper and lower extremities. MUSCULOSKELETAL: Muscle strength and tone normal. SPINE: No scoliosis or deformity SKIN: No rashes CENTRAL NERVOUS SYSTEM: Alert and oriented -3. No focal deficits, tone is normal in all 4 extremities. PSYCHIATRIC: Alert and oriented -3. Appropriate affect. Intact judgment and insight. - Labs CBC & Chem 7: 11/13/19 07:52 11/13/19 07:52 Labs: Abnormal Lab Results - Last 24 Hours (Table) 11/13/19 11/13/19 11/13/19 Range/Units 07:12 07:52 07:52 RBC 3.09 L (3.80-5.40) m/uL Hgb 11.1 L (11.4-16.0) gm/dL Hct 33.6 L (34.0-46.0) % MCV 108.7 H (80.0-100.0) fL MCH 35.8 H (25.0-35.0) pg Plt Count 107 L (150-450) k/uL Macrocytosis Marked A Sodium 136 L (137-145) mmol/L Chloride 108 H (98-107) mmol/L Carbon Dioxide 20 L (22-30) mmol/L BUN 25 H (7-17) mg/dL Creatinine 1.35 H (0.52-1.04) mg/dL Glucose 104 H (74-99) mg/dL POC Glucose (mg/dL) 113 H (75-99) mg/dL Calcium 8.1 L (8.4-10.2) mg/dL Total Bilirubin 2.3 H (0.2-1.3) mg/dL AST 61 H (14-36) U/L Alkaline Phosphatase 270 H (38-126) U/L Total Protein 6.0 L (6.3-8.2) g/dL Albumin 2.3 L (3.5-5.0) g/dL 11/13/19 Range/Units 11:27 RBC (3.80-5.40) m/uL Hgb (11.4-16.0) gm/dL Hct (34.0-46.0) % MCV (80.0-100.0) fL MCH (25.0-35.0) pg Plt Count (150-450) k/uL Macrocytosis Sodium (137-145) mmol/L Chloride (98-107) mmol/L Carbon Dioxide (22-30) mmol/L BUN (7-17) mg/dL Creatinine (0.52-1.04) mg/dL Glucose (74-99) mg/dL POC Glucose (mg/dL) 201 H (75-99) mg/dL Calcium (8.4-10.2) mg/dL Total Bilirubin (0.2-1.3) mg/dL AST (14-36) U/L Alkaline Phosphatase (38-126) U/L Total Protein (6.3-8.2) g/dL Albumin (3.5-5.0) g/dL Microbiology - Last 24 Hours (Table) 11/10/19 11:10 Gram Stain - Final Sputum Sputum Culture - Final Methicillin resist S. aureus 11/07/19 08:44 Blood Culture - Final Blood No Growth after 144 hours Assessment and Plan Plan: Assessment: #1. Acute left lower lobe pneumonia, related to MRSA infection #2. Chronic abdominal ascites with history of liver cirrhosis #3. History of hepatocellular carcinoma #4. History of chronic kidney disease stage III #5. 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 History of depression #7. History of pancytopenia secondary to known history of hepatocellular carc inoma #8. Type 2 diabetes Plan: Continue Rocephin, Levaquin, vancomycin has been added for MRSA pneumonia, clinically patient is stable, room air pulse ox the 100%, vital signs are stable, patient is afebrile, has been following, antibiotics per ID service recommendations, no nausea, vomiting, no abdominal pain, no diarrhea, no fever or chills, breathing is stable, unlabored. We'll continue to follow I performed a history & physical examination of the patient and discussed their management with my nurse practitioner, Camille Pettit. I reviewed the nurse practitioner's note and agree with the documented findings and plan of care. Lung sounds are positive for diminished breath sounds at the bases, no wheezes. The findings and the impression was discussed with the patient. I attest to the documentation by the nurse practitioner. Time with Patient: Less than 30
[2019-11-13] MEDS: IBUPROFEN 400 MG TAB PO PRN (16:09)
[2019-11-13 17:16] LABS: Glucose,Whole Blood 157 mg/dL (75-99)
[2019-11-13] MEDS: SODIUM CHLORIDE 0.9% 1,000 ML IV SCH (17:43)
--- NOTE | 2019-11-13 18:19 | PN ---
PROGRESS NOTE DATE OF SERVICE: 11/13/2019 REASON FOR FOLLOWUP: MRSA pneumonia. INTERVAL HISTORY: The patient is currently afebrile. Patient is breathing comfortably. The patient continues to have a cough and bringing up some purulent sputum. No nausea, no vomiting. No abdominal pain, no diarrhea. PHYSICAL EXAMINATION: Blood pressure is 101/62 with a pulse of 62, temperature 97.8. She is 97% on room air. General description is an elderly female up in the room in no distress. Respiratory system: Unlabored breathing. Some coarse breath sounds in the bases. No wheeze. Heart S1, S2. Regular rate and rhythm. Abdomen soft, no tenderness. Extremities: No edema of the feet. LABS: Hemoglobin is 11.1, white count 5.0, BUN of 25, creatinine 1.35. Blood culture has been negative. DIAGNOSTIC IMPRESSION AND PLAN: Patient admitted to the hospital with fever ( ) have evidence of left lower lobe pneumonia, sputum now with MRSA. The patient is covered with vancomycin with no evidence of any gram-negative infection. Rocephin will be discontinued and monitor clinical course closely. MMODL / IJN: [id number] /
[2019-11-13 20:04] LABS: Glucose,Whole Blood 162 mg/dL (75-99)
[2019-11-13] MEDS: MORPHINE SULFATE 4 MG/ML SYRINGE IV PRN (21:54)
[2019-11-14 07:12] LABS: Glucose,Whole Blood 143 mg/dL (75-99)
[2019-11-14] MEDS: FERROUS SULFATE 325 MG TAB PO SCH ×2 (07:49→20:04)
[2019-11-14] MEDS: PANTOPRAZOLE 40 MG TABLET PO SCH (07:49)
[2019-11-14] MEDS: MORPHINE SULFATE ER 15 MG TABLET PO SCH ×2 (07:49→22:57)
[2019-11-14] MEDS: SUCRALFATE 1 GM TAB PO SCH ×4 (07:49→20:04)
[2019-11-14] MEDS: ISOSORBIDE MONONITRATE ER 30 MG TAB.ER.24H PO SCH (07:49)
[2019-11-14] MEDS: CHOLECALCIFEROL 1,000 UNIT TAB PO SCH (07:50)
[2019-11-14] MEDS: DICYCLOMINE 10 MG CAP PO SCH (07:50)
[2019-11-14] MEDS: METOPROLOL TARTRATE 12.5 MG TAB PO SCH (07:50)
[2019-11-14] MEDS: TORSEMIDE 20 MG TAB PO SCH (07:50)
[2019-11-14] MEDS: SODIUM CHLORIDE 0.9% 1,000 ML IV SCH (07:51)
[2019-11-14] MEDS: LACTULOSE 20 GM/30 ML CUP PO SCH ×3 (07:51→22:57)
[2019-11-14] MEDS: buPROPion SR 150 MG TABLET.ER PO SCH (07:51)
[2019-11-14] MEDS: INSULIN REGULAR 100 UNIT/ML VIAL SQ SCH ×3 (07:52→17:42)
[2019-11-14] MEDS: MAG HYDROX/AL HYDROX/SIMETH 30 ML, diphenhydrAMINE ELIXIR 75 MG, LIDOCAINE VISCOUS 30 ML PO SCH ×9 (07:52→22:55)
[2019-11-14] MEDS: INSULIN NPH 300 UNIT/3 ML VIAL SQ SCH ×2 (07:52→17:42)
[2019-11-14] MEDS: MORPHINE SULFATE 4 MG/ML SYRINGE IV PRN ×3 (10:12→20:04)
[2019-11-14 10:19] LABS: Basophils % (A) 0 %; Eosinophils # (A) 0.3 k/uL (0-0.7); Eosinophils % (A) 6 %; HCT 36.2 % (34.0-46.0); HGB 11.7 gm/dL (11.4-16.0); Hypochromasia Slight; Lymphocytes # (A) 1.3 k/uL (1.0-4.8); Lymphocytes % (A) 24 %; MCH 35.5 pg (25.0-35.0); MCHC 32.3 g/dL (31.0-37.0); MCV 109.8 fL (80.0-100.0); Macrocytosis Marked; Mean Platelet Volume 10.2; Monocytes # (A) 0.3 k/uL (0-1.0); Monocytes % (A) 6 %; Neutrophils # (A) 3.4 k/uL (1.3-7.7); Neutrophils % (A) 62 %; Platelet Count 130 k/uL (150-450); RDW 14.5 % (11.5-15.5); WBC 5.5 k/uL (3.8-10.6)
[2019-11-14 10:33] LABS: Albumin 2.3 g/dL (3.5-5.0); Calcium 8.2 mg/dL (8.4-10.2); Potassium 4.1 mmol/L (3.5-5.1); Total Bilirubin 1.8 mg/dL (0.2-1.3); Total Protein 6.1 g/dL (6.3-8.2)
--- NOTE | 2019-11-14 10:57 | P.PN ---
Subjective Progress Note Date: 11/14/19 This is a 74-year-old female patient who presented with complaints of fever that started on Wednesday progressively increased over the past few days. Patient reports she's had some increased loose stools out of ostomy. Patient also complains of mild upper respiratory symptoms. Patient denies any nausea or vomiting. Patient denies cough or any open wounds Patient has a known past medical history of hepatocellular carcinoma. Additional medical history includes chronic ascites, nonalcoholic liver cirrhosis, diabetes mellitus, hypertension, liver, myocardial infarction, chronic renal disease chronic abdominal pain, diverticular disease with ileostomy, MRSA and VRE. Influenza negative. Leukocyte Estrace. Small amount of leukocyte Estrace noted to urine. Urine and blood cultures have been ordered. Chest x-ray completed showing no evidence for acute pulmonary disease. Abdominal ultrasound completed showing cirrhosis. There appears to be a focal 5 x 5 cm lesion posterior right liver lobe and possible 1.2 cm second lesion in the left liver lobe the setting cirrhosis HCC is not excluded. Mild to moderate abdominal pelvic ascites. Tenderness we'll scarring along the right upper quadrant. At this time blood, urine and lactic acid have been ordered stool for C. diff ordered. Infectious disease consulted. Dr. Figueroa also consulted for possible paracentesis. Patient denies any chest pain or shortness of breath. patient is having some nausea. She denies any urinary burning or frequency On 11/08/2019 patient was seen and examined on the medical floor she is alert and oriented 3 in no apparent distress there is no fever or chills no headache or dizziness no chest pain no shortness of breath no cough no nausea or vomiting no abdominal pain no diarrhea no burning was urination no frequency or urgency and no hematuria. On 11/09/2019 patient is alert and oriented 3. Patient remains on Levaquin and Rocephin for IV antibiotics. Last fever 100.6 on 11/08/2019. Patient denies chest pain or shortness of breath. Patient does have cough or sputum. Patient denies any nausea vomiting or diarrhea. Patient denies any urinary burning or frequency On 11/10/2018 patient is alert and oriented 3. Patient stopping elevated 100.2. Patient remains on IV antibiotic Levaquin and Rocephin per infectious disease. Sputum culture has been ordered. Patient denies any chest pain. Patient is having productive cough. Patient denies nausea vomiting or diarrhea. Patient denies any urinary burning or frequency On 11/11/2019 patient was seen and examined on the medical floor she is alert and oriented 3 in no apparent distress she is still complaining of cough with sputum production and complaining of abdominal pain otherwise she denies any complaints there is no fever or chills no headache or dizziness no chest pain no shortness of breath no nausea or vomiting no diarrhea and no urinary symptoms On 11/12/2019 patient is alert and oriented 3 she is complaining of cough with green sputum production, she is complaining of pain in the right upper quadrant , she is complaining of generalized weakness otherwise she denies any complaints there is no fever or chills no headache or dizziness no chest pain no nausea or vomiting no abdominal pain no diarrhea no burning was urination no frequency or urgency and no hematuria On 11/13/2019 patient is alert and oriented 3. Patient is still complaining of increased sputum production and cough. Patient overall states she does feel improved. Per infectious disease concerns for possible MRSA in sputum. Awaiting final sputum culture. Patient covered with vancomycin. Patient has been afebrile over the past 48 hours. Patient denies chest pain or shortness breath. Patient denies nausea vomiting or diarrhea. Patient denies any urinary burning or frequency On 11/14/2019 patient is alert and oriented 3. Sputum culture positive for MRSA. Patient maintained on Vanco. Patient still having increased sputum production. Patient has been afebrile. Patient denies chest pain. Patient having some increased swelling will DC fluids at this time. Creatinine improving. Objective - Vital Signs Vital signs: Vital Signs Temp 97.9 F 11/14/19 05:27 Pulse 71 11/14/19 08:00 Resp 18 11/14/19 05:27 BP 93/54 11/14/19 05:27 Pulse Ox 98 11/14/19 05:27 Intake & Output 11/13/19 11/14/19 11/14/19 18:59 06:59 18:59 Intake Total 450 425 Balance 450 425 Intake: Intake, IV Titration 450 425 Amount Sodium Chloride 0.9% 1, 400 175 000 ml @ 50 mls/hr IV . Q20H [facility] Rx#:[id number] Vancomycin 1,500 mg In 250 Sodium Chloride 0.9% 250 ml @ 125 mls/hr IVPB Q16H [facility] Rx#:[id number] cefTRIAXone 2 gm In 50 Sodium Chloride 0.9% 50 ml @ 100 mls/hr IVPB Q24HR [facility] Rx#:[id number] Other: Voiding Method Toilet Toilet - Exam Head normocephalic Neck supple Lungs clear to auscultation bilaterally no wheezing or crackles Heart regular rate and rhythm S1-S2, no rub or gallop Abdomen is soft nontender nondistended positive bowel sounds no hepatosplenomegaly. Left lower quadrant ostomy Extremities no edema Neuro alert and orientated to 3 - Labs CBC & Chem 7: 11/14/19 08:48 11/14/19 08:48 Labs: Abnormal Lab Results - Last 24 Hours (Table) 11/13/19 11/13/19 11/13/19 Range/Units 11:27 17:13 20:02 RBC (3.80-5.40) m/uL MCV (80.0-100.0) fL MCH (25.0-35.0) pg Plt Count (150-450) k/uL Macrocytosis Chloride (98-107) mmol/L BUN (7-17) mg/dL Creatinine (0.52-1.04) mg/dL Glucose (74-99) mg/dL POC Glucose (mg/dL) 201 H 157 H 162 H (75-99) mg/dL Calcium (8.4-10.2) mg/dL Total Bilirubin (0.2-1.3) mg/dL AST (14-36) U/L Alkaline Phosphatase (38-126) U/L Total Protein (6.3-8.2) g/dL Albumin (3.5-5.0) g/dL 11/14/19 11/14/19 11/14/19 Range/Units 07:11 08:48 08:48 RBC 3.30 L (3.80-5.40) m/uL MCV 109.8 H (80.0-100.0) fL MCH 35.5 H (25.0-35.0) pg Plt Count 130 L (150-450) k/uL Macrocytosis Marked A Chloride 110 H (98-107) mmol/L BUN 26 H (7-17) mg/dL Creatinine 1.34 H (0.52-1.04) mg/dL Glucose 181 H (74-99) mg/dL POC Glucose (mg/dL) 143 H (75-99) mg/dL Calcium 8.2 L (8.4-10.2) mg/dL Total Bilirubin 1.8 H (0.2-1.3) mg/dL AST 68 H (14-36) U/L Alkaline Phosphatase 320 H (38-126) U/L Total Protein 6.1 L (6.3-8.2) g/dL Albumin 2.3 L (3.5-5.0) g/dL Microbiology - Last 24 Hours (Table) 11/10/19 11:10 Gram Stain - Final Sputum Sputum Culture - Final Methicillin resist S. aureus 11/07/19 08:44 Blood Culture - Final Blood No Growth after 144 hours Assessment and Plan Assessment: 1. Febrile illness likely source left lower lobe pneumonia sputum positive for MRSA. Chest x-ray negative for acute process. Leukocyte esterase small amount in urine noted. Urine and blood cultures ordered. Lactic acid ordered. Influenza negative. C. diff negative. Infectious disease has been consulted. CT of abdomen and pelvis completed cannot pancreatitis involving the head of the pancreas with edema within the small bowel mesentery consider correlate with amylase and lipase. Amylase and lipase within normal limits. Adjacent thickening of the duodenum and stomach left lower normal pneumonia suspected. Patient remains on Rocephin and Levaquin per ID. Blood culture showing no growth. Urine culture pending paracentesis fluid pending. Sputum culture showing MRSA . Patient maintained on vancomycin. Infectious disease is following 2. Acute kidney injury. Creatinine slightly elevated at 1.41 and bun 34. We'll hold Aldactone at this time. Lasix changed to torsemide creatinine 1.52 and bun 26 will continue to monitor. Fluids DC'd 3. Moderate amount of abdominal ascites. Abdominal ultrasound completed showing cirrhosis. This appears to be a focal by by 5 cm lesion posterior right liver lobe and possible 1.2 cm lesion of liver lobe the setting of cirrhosis, HCC is not excluded. Mild to moderate abdominal pelvic ascites. Tenderness with guarding on the right upper quadrant. Status post paracentesis 3 L. 4. History of hepatocellular carcinoma. Per GI services recent ultrasound of abdomen did show 5 cm lesion in the left lobe of the liver. However CAT scan done yesterday did not show any liver lesions. May need MRI of the liver to evaluate the liver lesion 5. History of nonalcoholic liver cirrhosis. Per GI services fluid analysis did not show any evidence of spontaneous bacterial peritonitis. 6. History of chronic kidney disease stage III 7. History of chronic elevated ammonia level secondary to hepatocellular carcinoma nonalcoholic liver cirrhosis. Patient maintained on lactulose 8. History of urine colonization with VRE 9. History of depression 10. History of pancytopenia secondary to known hepatocellular carcinoma and liver cirrhosis 11. History of recurring abdominal ascites 12. Diabetes mellitus type 2. Home meds resumed. A1c 5.6 13. History of depression and anxiety home meds resumed 14. Sores in mouth. Patient reports that she has follow-up appointment with oral surgeon in regards to this issue Magic mouthwash has been ordered DVT prophylaxis SCDs due to chronic thrombocytopenia. GI prophylaxis Protonix GI, pulmonary and infectious disease service is consulted Dr. KRISTIN Lux will be covering for Dr. begum nov 15- Nov 19. I performed an examination of the patient and discussed their management with the Nurse Practitioner. I have reviewed the Nurse Practitioner's notes and agree with the documented findings and plan of care
[2019-11-14 11:19] LABS: Glucose,Whole Blood 242 mg/dL (75-99)
--- NOTE | 2019-11-14 13:38 | P.PN ---
Subjective Progress Note Date: 11/14/19 Principal diagnosis: Acute left lower lobe pneumonia and hepatocellular carcinoma as well as ascites and liver cirrhosis This is a 74-year-old female with history of multiple medical problems including hepatocellular liver cancer, nonalcoholic liver cirrhosis, seen in the ER on 01/07/2019, patient was complaining of 2 days history of nonproductive cough, nasal congestion, chills, and she had a temp as high as 102. She was also complaining of diffuse abdominal cramping with mild abdominal distention. She was concerned that she may require paracentesis for her recurrent ascites. Patient had a previous history of colostomy secondary to diverticulitis. She has been noticing some bright red blood in her ostomy bag that day prior to admission. Patient had no urinary symptoms although she had previous history of recurrent urinary tract infections. Patient was admitted with the impression of febrile illness, she had a relatively normal chest x-ray on admission, she was also diagnosed with acute kidney injury, and diuretics were placed on hold. She had moderate amount of abdominal ascites, and her other medical problems on admission included nonalcoholic liver cirrhosis, chronic colonization of urine with VRE, and type 2 diabetes. Patient was seen by infectious disease on consultation, and he was concerned about ascites and spontaneous bacterial peritonitis or possible other intra-abdominal source of infection. Patient was placed on Levaquin and Rocephin. Her urine came back positive for Enterococcus faecalis, but it was felt to be mostly colonization. Her paracentesis fluid came back negative for infection. On 11/08/2019, patient had a CT of the ab domen and pelvis, and it clearly showed left lower lobe infiltrate consistent with pneumonia involving the left lower lobe. There was small pleural effusion noted. Considering the abnormality on the CT of the abdomen and pelvis showing infiltrate in the left lower lobe, this consult was initiated. Patient presented initially with pulmonary symptoms, however her chest x-ray on admission was clear. Patient describes cough, it is productive with yellow phlegm, she had a T-max of 99.1, presently afebrile. She is on room air, and O2 saturation is 100%. Reevaluated today on 11/12/2019, patient seems to be feeling better today, less cough, less shortness of breath, remains on antibiotics as per infectious disease on the case. Chest x-ray this morning showed minimal left lower lobe infiltrate and small tiny effusion. Clinically the patient is feeling better. WBC count is 3.9 hemoglobin is 10.3 electrolytes are normal renal profile showed a creatinine of 1.31, improving compared to the last few days she had a baseline of 1.59 on admission. Her total bilirubin is also improving from 3.3 down to 1.5 today. On 11/13/2019 patient seen in follow-up on medical surgical floor. She is awake and alert, in no acute distress, she is currently on room air, she states she is feeling better, breathing easier. Pulse ox on room is 100%, hemodynamically stable, afebrile, respirations are nonlabored, she is on a combination of Rocephin, Levaquin, and vancomycin. No significant cough or congestion. Sputum culture was positive for MRSA, and urine culture was positive for Enterococcus faecalis. Today's labs have been reviewed, showing white blood cell count of 5.0, hemoglobin of 11.1, sodium of 136, potassium is 4.0, chloride is 108, CO2 is 20, B1 is 25 creatinine is 1.35 On 11/14/2019 patient seen in follow-up on medical surgical floor. Resting comfortably in bed, in no acute distress, denies any shortness of breath, room air pulse ox is 99%, no fever or chills, hemodynamically stable, no acute issues overnight lung sounds are clear. No cough or congestion, patient has been treated with accommodation of Rocephin, Levaquin and vancomycin for MRSA pneumonia, and evidence of Enterococcus faecalis in the urine cultures. Breathing is comfortable. ID service is following. No febrile episodes overnight. Objective - Vital Signs Vital signs: Vital Signs Temp 98.8 F 11/14/19 11:40 Pulse 65 11/14/19 11:40 Resp 20 11/14/19 11:40 BP 108/54 11/14/19 11:40 Pulse Ox 99 11/14/19 11:40 Intake & Output 11/13/19 11/14/19 11/14/19 18:59 06:59 18:59 Intake Total 450 425 900 Balance 450 425 900 Intake: Intake, IV Titration 450 425 900 Amount Sodium Chloride 0.9% 1, 400 175 350 000 ml @ 50 mls/hr IV . Q20H [facility] Rx#:[id number] Vancomycin 1,500 mg In 250 500 Sodium Chloride 0.9% 250 ml @ 125 mls/hr IVPB Q16H [facility] Rx#:[id number] cefTRIAXone 2 gm In 50 50 Sodium Chloride 0.9% 50 ml @ 100 mls/hr IVPB Q24HR [facility] Rx#:[id number] Other: Voiding Method Toilet Toilet # Voids 3 # Bowel Movements 1 - Exam GENERAL EXAM: Alert, pleasant, 74-year-old white female, on room air, with a pulse ox of 100% comfortable in no apparent distress. HEAD: Normocephalic/atraumatic. EYES: Normal reaction of pupils, equal size. Conjunctiva pink, sclera white. NOSE: Clear with pink turbinates. THROAT: No erythema or exudates. NECK: No masses, no JVD, no thyroid enlargement, no adenopathy. CHEST: No chest wall deformity. Symmetrical expansion. LUNGS: Equal air entry with no crackles, wheeze, rhonchi or dullness. CVS: Regular rate and rhythm, normal S1 and S2, no gallops, no murmurs, no rubs ABDOMEN: Soft, nontender. No hepatosplenomegaly, normal bowel sounds, no guarding or rigidity. EXTREMITIES: No clubbing, no edema, no cyanosis, 2+ pulses and upper and lower extremities. MUSCULOSKELETAL: Muscle strength and tone normal. SPINE: No scoliosis or deformity SKIN: No rashes CENTRAL NERVOUS SYSTEM: Alert and oriented -3. No focal deficits, tone is normal in all 4 extremities. PSYCHIATRIC: Alert and oriented -3. Appropriate affect. Intact judgment and insight. - Labs CBC & Chem 7: 11/14/19 08:48 11/14/19 08:48 Labs: Abnormal Lab Results - Last 24 Hours (Table) 11/13/19 11/13/19 11/14/19 Range/Units 17:13 20:02 07:11 RBC (3.80-5.40) m/uL MCV (80.0-100.0) fL MCH (25.0-35.0) pg Plt Count (150-450) k/uL Macrocytosis Chloride (98-107) mmol/L BUN (7-17) mg/dL Creatinine (0.52-1.04) mg/dL Glucose (74-99) mg/dL POC Glucose (mg/dL) 157 H 162 H 143 H (75-99) mg/dL Calcium (8.4-10.2) mg/dL Total Bilirubin (0.2-1.3) mg/dL AST (14-36) U/L Alkaline Phosphatase (38-126) U/L Total Protein (6.3-8.2) g/dL Albumin (3.5-5.0) g/dL 11/14/19 11/14/19 11/14/19 Range/Units 08:48 08:48 11:17 RBC 3.30 L (3.80-5.40) m/uL MCV 109.8 H (80.0-100.0) fL MCH 35.5 H (25.0-35.0) pg Plt Count 130 L (150-450) k/uL Macrocytosis Marked A Chloride 110 H (98-107) mmol/L BUN 26 H (7-17) mg/dL Creatinine 1.34 H (0.52-1.04) mg/dL Glucose 181 H (74-99) mg/dL POC Glucose (mg/dL) 242 H (75-99) mg/dL Calcium 8.2 L (8.4-10.2) mg/dL Total Bilirubin 1.8 H (0.2-1.3) mg/dL AST 68 H (14-36) U/L Alkaline Phosphatase 320 H (38-126) U/L Total Protein 6.1 L (6.3-8.2) g/dL Albumin 2.3 L (3.5-5.0) g/dL Microbiology - Last 24 Hours (Table) 11/10/19 11:10 Gram Stain - Final Sputum Sputum Culture - Final Methicillin resist S. aureus 11/07/19 08:44 Blood Culture - Final Blood No Growth after 144 hours Assessment and Plan Plan: Assessment: #1. Acute left lower lobe pneumonia, related to MRSA infection #2. Acute urinary tract infection related to Enterococcus faecalis #3. Chronic abdominal ascites with history of liver cirrhosis #4. History of hepatocellular carcinoma #5. History of chronic kidney disease stage III #6. 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 History of depression #8. History of pancytopenia secondary to known history of hepatocellular carcinoma #9. Type 2 diabetes Plan: Continue current medical treatment, antibiotics per ID service recommendations, clinically patient is asymptomatic, breathing stable, she is on room air, no fever chills, will await further recommendations from ID service in terms of antibiotic treatment, clinically patient remains stable, and could be considered for discharge home today I performed a history & physical examination of the patient and discussed their management with my nurse practitioner, Camille Pettit. I reviewed the nurse practitioner's note and agree with the documented findings and plan of care. Lung sounds are positive for diminished breath sounds at the bases, no wheezes. The findings and the impression was discussed with the patient. I attest to the documentation by the nurse practitioner. Time with Patient: Less than 30
[2019-11-14] MEDS: ONDANSETRON 4 MG/2 ML VIAL IVP PRN (13:51)
[2019-11-14] MEDS: VANCOMYCIN 1,500 MG in SODIUM CHLORIDE 0.9% 250 ML IVPB SCH (15:57)
[2019-11-14 17:15] LABS: Glucose,Whole Blood 210 mg/dL (75-99)
[2019-11-14 20:55] LABS: Glucose,Whole Blood 157 mg/dL (75-99)
[2019-11-14] MEDS: clonazePAM 0.5 MG TAB PO PRN (22:55)
--- NOTE | 2019-11-14 23:29 | PN ---
PROGRESS NOTE DATE OF SERVICE: 11/14/2019 REASON FOR FOLLOWUP: MRSA pneumonia. INTERVAL HISTORY: The patient is currently afebrile. The patient is breathing slightly comfortably. Patient denies having any chest pain. Occasional cough. No nausea or vomiting. No abdominal pain or diarrhea. PHYSICAL EXAMINATION: Blood pressure 100/50 with a pulse of 61, temperature 98.6. She is 98% on room air. General description is an elderly female up in the chair in no distress. RESPIRATORY SYSTEM: Unlabored breathing with decreased breath sounds at the base. No wheeze. HEART: S1, S2. Regular rate and rhythm. ABDOMEN: Soft. No tenderness. LABS: Hemoglobin 11.7, white count 5.5. BUN of 26, creatinine 1.34. DIAGNOSTIC IMPRESSION AND PLAN: Patient with methicillin-resistant Staphylococcus aeruginosa pneumonia. Patient is currently covered with vancomycin. We cannot use the Zyvox because of her antidepressant that is interacting with it. Plan will be to get a PICC line and finish therapy with IV vancomycin. Duration of antibiotics will be 2 weeks. Continue with supportive care. MMLOUL / DREAN: [id number] /
[2019-11-15] MEDS: MORPHINE SULFATE 4 MG/ML SYRINGE IV PRN ×4 (01:26→21:54)
[2019-11-15] MEDS ORDERED: VANCOMYCIN TROUGH DUE 1 EACH MISC MISCELLANE ONE (07:00)
[2019-11-15 07:07] LABS: Glucose,Whole Blood 96 mg/dL (75-99)
[2019-11-15 08:09] LABS: Albumin 2.1 g/dL (3.5-5.0); Calcium 7.9 mg/dL (8.4-10.2); Potassium 3.5 mmol/L (3.5-5.1); Total Bilirubin 2.3 mg/dL (0.2-1.3); Total Protein 5.8 g/dL (6.3-8.2)
[2019-11-15 08:20] LABS: Basophils % (A) 0 %; Eosinophils # (A) 0.2 k/uL (0-0.7); Eosinophils % (A) 5 %; HCT 33.6 % (34.0-46.0); HGB 11.4 gm/dL (11.4-16.0); Lymphocytes % (A) 21 %; MCH 35.9 pg (25.0-35.0); MCHC 33.8 g/dL (31.0-37.0); MCV 106.1 fL (80.0-100.0); Macrocytosis Moderate; Mean Platelet Volume 10.2; Monocytes # (A) 0.3 k/uL (0-1.0); Monocytes % (A) 6 %; Neutrophils # (A) 3.1 k/uL (1.3-7.7); Neutrophils % (A) 66 %; Platelet Count 120 k/uL (150-450); RBC 3.17 m/uL (3.80-5.40); RDW 14.6 % (11.5-15.5); WBC 4.8 k/uL (3.8-10.6)
[2019-11-15] MEDS: VANCOMYCIN 1,500 MG in SODIUM CHLORIDE 0.9% 250 ML IVPB SCH (08:50)
[2019-11-15] MEDS: PANTOPRAZOLE 40 MG TABLET PO SCH (08:54)
[2019-11-15] MEDS: SUCRALFATE 1 GM TAB PO SCH ×4 (08:54→20:26)
[2019-11-15] MEDS: METOPROLOL TARTRATE 12.5 MG TAB PO SCH (08:54)
[2019-11-15] MEDS: FERROUS SULFATE 325 MG TAB PO SCH ×2 (08:54→20:26)
[2019-11-15] MEDS: ISOSORBIDE MONONITRATE ER 30 MG TAB.ER.24H PO SCH (08:54)
[2019-11-15] MEDS: DICYCLOMINE 10 MG CAP PO SCH (08:54)
[2019-11-15] MEDS: buPROPion SR 150 MG TABLET.ER PO SCH (08:55)
[2019-11-15] MEDS: LACTULOSE 20 GM/30 ML CUP PO SCH ×3 (08:55→21:53)
[2019-11-15] MEDS: MORPHINE SULFATE ER 15 MG TABLET PO SCH (08:55)
[2019-11-15] MEDS: TORSEMIDE 20 MG TAB PO SCH (08:55)
[2019-11-15] MEDS: CHOLECALCIFEROL 1,000 UNIT TAB PO SCH (08:56)
[2019-11-15] MEDS: INSULIN NPH 300 UNIT/3 ML VIAL SQ SCH ×2 (08:57→16:53)
[2019-11-15] MEDS: MAG HYDROX/AL HYDROX/SIMETH 30 ML, diphenhydrAMINE ELIXIR 75 MG, LIDOCAINE VISCOUS 30 ML PO SCH ×9 (09:08→21:53)
[2019-11-15] MEDS: INSULIN REGULAR 100 UNIT/ML VIAL SQ SCH ×3 (09:14→16:54)
[2019-11-15 11:17] LABS: Glucose,Whole Blood 290 mg/dL (75-99)
--- NOTE | 2019-11-15 13:35 | PN ---
PROGRESS NOTE DATE OF SERVICE: 11/15/2019. She is lying in bed. She does not seem to be in any distress. She has abdominal pain. She was just started on vancomycin. On physical examination, her blood pressure is 100/52, respiratory rate of 16, pulse rate of 62, temperature 98.7 degrees Fahrenheit, O2 saturation on room air is 96%. HEENT is unremarkable. Chest reveals decreased breath sounds in the bases. Cardiovascular system is S1, S2. Abdomen is mildly distended. There is 1+ pedal edema. Sputum culture from 11/10/2019 is showing methicillin-resistant Staph aureus. Urine culture from November 07 showing enterococcus faecalis. IMPRESSION: At this time is: 1. MRSA pneumonia. 2. Acute kidney injury. 3. History of hepatocellular carcinoma with ongoing ascites. 4. Urinary colonization with VRE. 5. Diabetes mellitus type 2. At this point in time, continue current medications and vancomycin per ID. The plan is to have her get a PICC line with subsequent outpatient antibiotics per ID. Her prognosis is guarded. She was counseled regarding her condition and this approach. MMODL / IJN: [id number] /
--- NOTE | 2019-11-15 16:44 | P.PN ---
Subjective Progress Note Date: 11/15/19 Principal diagnosis: Acute left lower lobe pneumonia and hepatocellular carcinoma as well as ascites and liver cirrhosis The patient is seen today 11/15/2019 in follow-up on the regular medical floor. She is currently resting comfortably in bed. Awake and alert in no acute dis tress. Maintaining O2 saturations in the mid to upper 90s on room air. She's afebrile. Hemodynamically stable. Urine culture was positive for Enterococcus faecalis. Sputum culture was positive for MRSA. White count 4.8. Hemoglobin 11.4. Platelet count 120,000. Creatinine 1.43. AST 61, ALT 32, alk phos 262. She is continued on vancomycin. Her pain is well controlled. Objective - Vital Signs Vital signs: Vital Signs Temp 99.1 F 11/15/19 11:27 Pulse 71 11/15/19 11:27 Resp 16 11/15/19 11:27 BP 107/55 11/15/19 11:27 Pulse Ox 98 11/15/19 11:27 Intake & Output 11/14/19 11/15/19 11/15/19 18:59 06:59 18:59 Intake Total 900 250 850 Balance 900 250 850 Weight 90.718 kg Intake: Intake, IV Titration 900 250 250 Amount Sodium Chloride 0.9% 1, 350 000 ml @ 50 mls/hr IV . Q20H JENNY Rx#:[id number] Vancomycin 1,500 mg In 500 250 250 Sodium Chloride 0.9% 250 ml @ 125 mls/hr IVPB Q16H JENNY Rx#:[id number] cefTRIAXone 2 gm In 50 Sodium Chloride 0.9% 50 ml @ 100 mls/hr IVPB Q24HR JENNY Rx#:[id number] Oral 600 Other: Voiding Method Toilet Toilet Toilet # Voids 3 1 2 # Bowel Movements 1 - Exam GENERAL EXAM: Alert, pleasant, 74-year-old female patient, on room air, comfortable in no apparent distress. HEAD: Normocephalic/atraumatic. EYES: Normal reaction of pupils, equal size. Conjunctiva pink, sclera white. NOSE: Clear with pink turbinates. THROAT: No erythema or exudates. NECK: No masses, no JVD, no thyroid enlargement, no adenopathy. CHEST: No chest wall deformity. Symmetrical expansion. LUNGS: Equal air entry with crackles in the left base. CVS: Regular rate and rhythm, normal S1 and S2, no gallops, no murmurs, no rubs ABDOMEN: Soft, nontender. No hepatosplenomegaly, normal bowel sounds, no guarding or rigidity. EXTREMITIES: No clubbing, no edema, no cyanosis, 2+ pulses and upper and lower extremities. MUSCULOSKELETAL: Muscle strength and tone normal. SPINE: No scoliosis or deformity SKIN: No rashes CENTRAL NERVOUS SYSTEM: No focal deficits, tone is normal in all 4 extremities. PSYCHIATRIC: Alert and oriented -3. Appropriate affect. Intact judgment and insight. - Labs CBC & Chem 7: 11/15/19 07:17 11/15/19 07:17 Labs: Abnormal Lab Results - Last 24 Hours (Table) 11/14/19 11/14/19 11/15/19 Range/Units 17:14 20:53 07:17 RBC 3.17 L (3.80-5.40) m/uL Hct 33.6 L (34.0-46.0) % MCV 106.1 H (80.0-100.0) fL MCH 35.9 H (25.0-35.0) pg Plt Count 120 L (150-450) k/uL Chloride (98-107) mmol/L Carbon Dioxide (22-30) mmol/L BUN (7-17) mg/dL Creatinine (0.52-1.04) mg/dL POC Glucose (mg/dL) 210 H 157 H (75-99) mg/dL Calcium (8.4-10.2) mg/dL Total Bilirubin (0.2-1.3) mg/dL AST (14-36) U/L Alkaline Phosphatase (38-126) U/L Total Protein (6.3-8.2) g/dL Albumin (3.5-5.0) g/dL 11/15/19 11/15/19 Range/Units 07:17 11:15 RBC (3.80-5.40) m/uL Hct (34.0-46.0) % MCV (80.0-100.0) fL MCH (25.0-35.0) pg Plt Count (150-450) k/uL Chloride 112 H (98-107) mmol/L Carbon Dioxide 17 L (22-30) mmol/L BUN 25 H (7-17) mg/dL Creatinine 1.43 H (0.52-1.04) mg/dL POC Glucose (mg/dL) 290 H (75-99) mg/dL Calcium 7.9 L (8.4-10.2) mg/dL Total Bilirubin 2.3 H (0.2-1.3) mg/dL AST 61 H (14-36) U/L Alkaline Phosphatase 262 H (38-126) U/L Total Protein 5.8 L (6.3-8.2) g/dL Albumin 2.1 L (3.5-5.0) g/dL Assessment and Plan Assessment: #1. Acute left lower lobe pneumonia, related to MRSA infection #2. Acute urinary tract infection related to Enterococcus faecalis #3. Chronic abdominal ascites with history of liver cirrhosis #4. History of hepatocellular carcinoma #5. History of chronic kidney disease stage III #6. 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 History of depression #8. History of pancytopenia secondary to known history of hepatocellular carcinoma #9. Type 2 diabetes Plan: The patient was seen and evaluated by Dr. Belle. She is continued on vancomycin for her MRSA pneumonia. ID is on the case and will make recommendations for ou tpatient treatment. Cleared for discharge from the pulmonary standpoint. I, the cosigning physician, performed a history & physical examination of the patient. Lungs sounds with crackles in left base. Maintaining good O2 saturations in the 90s on room air. I discussed the assessment and plan of care with my nurse practitioner, sAhly Swanson. I attest to the above note as dictated by her.
[2019-11-15 17:07] LABS: Glucose,Whole Blood 195 mg/dL (75-99)
[2019-11-15 20:16] LABS: Glucose,Whole Blood 140 mg/dL (75-99)
[2019-11-15] MEDS: clonazePAM 0.5 MG TAB PO PRN (20:27)
[2019-11-16] MEDS: MORPHINE SULFATE ER 15 MG TABLET PO SCH ×3 (01:00→20:38)
[2019-11-16] MEDS: VANCOMYCIN 1,250 MG in SODIUM CHLORIDE 0.9% 250 ML IVPB SCH ×2 (02:34→17:37)
[2019-11-16 07:10] LABS: Glucose,Whole Blood 94 mg/dL (75-99)
[2019-11-16] MEDS: ISOSORBIDE MONONITRATE ER 30 MG TAB.ER.24H PO SCH (07:40)
[2019-11-16] MEDS: METOPROLOL TARTRATE 12.5 MG TAB PO SCH (07:40)
[2019-11-16] MEDS: PANTOPRAZOLE 40 MG TABLET PO SCH (07:40)
[2019-11-16] MEDS: buPROPion SR 150 MG TABLET.ER PO SCH (07:40)
[2019-11-16] MEDS: INSULIN NPH 300 UNIT/3 ML VIAL SQ SCH ×2 (07:41→17:00)
[2019-11-16] MEDS: DICYCLOMINE 10 MG CAP PO SCH (07:41)
[2019-11-16] MEDS: CHOLECALCIFEROL 1,000 UNIT TAB PO SCH (07:41)
[2019-11-16] MEDS: SUCRALFATE 1 GM TAB PO SCH ×4 (07:41→20:38)
[2019-11-16] MEDS: INSULIN REGULAR 100 UNIT/ML VIAL SQ SCH ×3 (07:42→17:00)
[2019-11-16] MEDS: MAG HYDROX/AL HYDROX/SIMETH 30 ML, diphenhydrAMINE ELIXIR 75 MG, LIDOCAINE VISCOUS 30 ML PO SCH ×9 (07:42→21:13)
[2019-11-16] MEDS: LACTULOSE 20 GM/30 ML CUP PO SCH ×4 (07:43→21:23)
--- NOTE | 2019-11-16 07:47 | PN ---
PROGRESS NOTE DATE OF SERVICE: 11/15/2019. REASON FOR FOLLOWUP: MRSA pneumonia. INTERVAL HISTORY: The patient is currently afebrile. She has been breathing comfortably. The patient did have a cough and bringing up some sputum. No chest pain. No nausea, no vomiting. No abdominal pain, no diarrhea. PHYSICAL EXAMINATION: On examination, blood pressure 107/55 with a pulse of 71, temperature 99.1. She is 98% on room air. General description is an elderly female up in the bed in no distress. RESPIRATORY SYSTEM: Unlabored breathing, decreased breath sounds at bases. No wheeze. HEART: S1, S2. Regular rate and rhythm. ABDOMEN: Soft, no tenderness. LABS: Hemoglobin 11.4, white count 4.8, BUN of 25, creatinine is 1.43. DIAGNOSTIC IMPRESSION AND PLAN: Patient with methicillin-resistant Staphylococcus aureus pneumonia. Patient is currently covered with vancomycin. Plan is to get a PICC line and finish therapy with outpatient IV vancomycin. Duration by at least 2 weeks. Continue with supportive care. MMODL / IJN: [id number] /
[2019-11-16 07:49] LABS: Basophils % (A) 0 %; Eosinophils # (A) 0.2 k/uL (0-0.7); Eosinophils % (A) 4 %; HCT 34.6 % (34.0-46.0); HGB 11.2 gm/dL (11.4-16.0); Hypochromasia Slight; Lymphocytes # (A) 1.3 k/uL (1.0-4.8); Lymphocytes % (A) 25 %; MCH 35.4 pg (25.0-35.0); MCHC 32.4 g/dL (31.0-37.0); MCV 109.4 fL (80.0-100.0); Macrocytosis Marked; Mean Platelet Volume 9.3; Monocytes # (A) 0.3 k/uL (0-1.0); Monocytes % (A) 5 %; Neutrophils # (A) 3.3 k/uL (1.3-7.7); Neutrophils % (A) 63 %; Platelet Count 121 k/uL (150-450); RBC 3.17 m/uL (3.80-5.40); RDW 14.5 % (11.5-15.5); WBC 5.2 k/uL (3.8-10.6)
[2019-11-16 07:58] LABS: Albumin 2.3 g/dL (3.5-5.0); Calcium 8.2 mg/dL (8.4-10.2); Potassium 3.8 mmol/L (3.5-5.1); Total Bilirubin 2.5 mg/dL (0.2-1.3); Total Protein 6.1 g/dL (6.3-8.2)
[2019-11-16] MEDS: FERROUS SULFATE 325 MG TAB PO SCH ×2 (08:12→20:38)
[2019-11-16 09:54] LABS: Poikilocytosis (M) Present
[2019-11-16] MEDS: ONDANSETRON 4 MG/2 ML VIAL IVP PRN (10:35)
[2019-11-16] MEDS: MORPHINE SULFATE 4 MG/ML SYRINGE IV PRN (10:35)
[2019-11-16 11:32] LABS: Glucose,Whole Blood 165 mg/dL (75-99)
--- NOTE | 2019-11-16 12:38 | PN ---
PROGRESS NOTE Covering for Dr. Lea. DATE OF SERVICE: 11/16/2019 Patient is a 74-year-old female who is seen lying in bed, is awake and alert. Denies shortness of breath. Patient does complain of some mid epigastric pain, which patient states is new. Denies any nausea. The patient is afebrile, hemodynamically stable, in no acute distress. ON PHYSICAL EXAM: VITAL SIGNS: Temp 98.1, heart rate 61, respiratory rate 18, blood pressure is 93/54, O2 sats 96% on room air. HEENT: Head is normocephalic, atraumatic. Neck is supple. Trachea is midline. LUNGS: Essentially clear. No rales or wheezes. HEART: S1, S2 are heard. Not tachycardic. ABDOMEN: Soft. Does complain with pain on palpation to the epigastric area. Bowel sounds are positive. EXTREMITIES: With no edema. NEUROLOGIC: Patient is awake and alert. LABS: White count 5.2, hemoglobin 11.2, hematocrit is 34.6 with 121,000 platelets. Sodium is 138, potassium is 3.8, chloride 110, CO2 is 21, anion gap is 7, BUN is 28, creatinine is 1.43. Glucose is 88. Calcium is 8.2. Total bilirubin is 2.5, AST is 59, ALT is 29, alkaline phosphatase is 253. Total protein 6.1 and albumin is 2.3. No new imaging to review. IMPRESSION AT THIS TIME: 1. Methicillin-resistant Staphylococcus aureus pneumonia. 2. Acute kidney injury. 3. History of hepatocellular carcinoma with ongoing ascites. 4. Urinary colonization with VRE. 5. Diabetes mellitus type 2. PLAN: Continue current medications, which have been reviewed. Continue antibiotics per Infectious Disease. We will consult General Surgery for the complaint of epigastric pain for further evaluation. We will continue to follow patient closely making further changes as necessary. MMODL / IJN: [id number] /
[2019-11-16] MEDS ORDERED: LIDOCAINE 1% INJ 10MG/ML (20 ML MDV) ONE (13:00)
[2019-11-16] MEDS ORDERED: LIDOCAINE 1% INJ 10MG/ML (20 ML MDV) SQ ONE (13:05)
--- NOTE | 2019-11-16 13:42 | P.GSCN ---
History of Present Illness Consult date: 11/16/19 History of present illness: 74-year-old female presented to the emergency department with complaints of fever and abdominal pain. She is known to have a past medical history of hepatocellular carcinoma. She has undergone abdominal surgery with a colectomy and resulting ileostomy secondary to diverticular disease. Her additional medical history includes chronic ascites, nonalcoholic liver cirrhosis, diabetes mellitus, hypertension, myocardial infarction and chronic renal disease. On workup, the patient has been found to have pneumonia that is currently being tr eated. Over the past day, she has complained of increasing abdominal pain that she describes as sharp and in the left side of her abdomen. She states that this pain has been present for the past few weeks and is on and off in nature. She denies any nausea or vomiting and is tolerating a lunch during her exam. She states that she has not had any recent changes in her ostomy output. Review of Systems All systems: negative Past Medical History Past Medical History: Cancer, Diabetes Mellitus, Hypertension, Liver Disease, Myocardial Infarction ([place]), Renal Disease Additional Past Medical History / Comment(s): Hepatocellular liver cancer with chemo immobilization-last time being 2017, ascities with paracentesis's may 2019, nonalcoholic liver cirrhosis, chronic pancytopenia, chronic elevated ammonia levels, hepatic encephalopathy, chronic elevated LFTs, chronic abdominal pain, stomach ulcer, diverticular disease with ileostomy, IDDM type II, iron anemia, CKD stage III, nonsustained vtach, UTI, high ammonia levels Last Myocardial Infarction Date:: unk History of Any Multi-Drug Resistant Organisms: MRSA, 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 Past Anesthesia/Blood Transfusion Reactions: No Reported Reaction Past Psychological History: Anxiety, Depression Smoking Status: Former smoker Past Alcohol Use History: None Reported Past Drug Use History: None Reported - Past Family History Mother History Unknown: Yes Family Medical History: Congestive Heart Failure (CHF) Additional Family Medical History / Comment(s): Mother is 94 yrs old. Father Family Medical History: Chest Pain / Angina Additional Family Medical History / Comment(s): Father is . Medications and Allergies Home Medications Medication Instructions Recorded Confirmed Type Omeprazole [PriLOSEC] 20 mg PO DAILY 10/23/18 11/09/19 History Sucralfate [Carafate] 1 gm PO ACHS 10/23/18 11/09/19 History Insulin Regular, Human [NovoLIN R] 10 unit SQ AC-TID 10/24/18 11/09/19 History Cholecalciferol [Vitamin D3 (25 2,000 unit PO DAILY 01/16/19 11/09/19 History Mcg = 1000 Iu)] Ferrous Sulfate [Iron (65 MG 325 mg PO BID 01/31/19 11/09/19 History Elemental)] Morphine Sulfate [Ms Contin] 15 mg PO BID 05/15/19 11/09/19 History buPROPion HCL [Wellbutrin SR] 150 mg PO DAILY 06/12/19 11/09/19 History clonazePAM [KlonoPIN] 0.5 mg PO BID PRN 06/12/19 11/06/19 History Lactulose [Cephulac] 30 gm PO TID 07/22/19 11/09/19 History Isosorbide Mononitrate ER [Imdur] 30 mg PO DAILY 30 Days #30 07/26/19 11/09/19 Rx tab.er.24h Furosemide [Lasix] 40 mg PO DAILY 30 Days #30 tablet 08/07/19 11/09/19 Rx Spironolactone [Aldactone] 50 mg PO DAILY 30 Days #30 tab 08/07/19 11/09/19 Rx Dicyclomine [Bentyl] 10 mg PO DAILY 10/02/19 11/09/19 History Insulin NPH Human Isophane 18 unit SQ AC-BID 10/02/19 11/09/19 History [NovoLIN N] Metoprolol Tartrate [Lopressor] 6.25 mg PO DAILY tab 10/04/19 11/06/19 Rx Allergies Allergy/AdvReac Type Severity Reaction Status Date / Time amlodipine Allergy Rash/Hives Verified 11/06/19 13:17 oxycodone Allergy Rash/Hives Verified 11/06/19 13:17 Penicillins Allergy Rash/Hives Verified 11/06/19 13:17 hydromorphone [From Dilaudid] AdvReac Mild tactile Verified 11/06/19 13:17 disturbance GREG Inhibitors AdvReac Cough Verified 11/06/19 13:17 sodium dodecyclbenzene Allergy Rash/Hives Uncoded 11/06/19 13:17 sulfonate Surgical - Exam Osteopathic Statement: *. No significant issues noted on an osteopathic structural exam other than those noted in the History and Physical/Consult. Vital Signs Temp Pulse Resp BP Pulse Ox 100.5 F H 76 18 102/55 96 11/06/19 13:15 11/06/19 13:15 11/06/19 13:15 11/06/19 13:15 11/06/19 13:15 - General no distress - Eyes PERRL - ENT normal mucosa, no hearing loss - Neck trachea midline - Respiratory normal respiratory effort - Abdomen Soft, overall nontender, nondistended, no rebound, no guarding, ostomy is pink and patent, left-sided the abdomen with a palpable cyst versus lipoma - Psychiatric oriented to time, oriented to person, oriented to place Results - Labs 11/16/19 07:21 11/16/19 07:21 Abnormal Lab Results - Last 24 Hours (Table) 11/15/19 11/15/19 11/16/19 Range/Units 17:06 20:04 07:21 RBC 3.17 L (3.80-5.40) m/uL Hgb 11.2 L (11.4-16.0) gm/dL MCV 109.4 H (80.0-100.0) fL MCH 35.4 H (25.0-35.0) pg Plt Count 121 L (150-450) k/uL Macrocytosis Marked A Chloride (98-107) mmol/L Carbon Dioxide (22-30) mmol/L BUN (7-17) mg/dL Creatinine (0.52-1.04) mg/dL POC Glucose (mg/dL) 195 H 140 H (75-99) mg/dL Calcium (8.4-10.2) mg/dL Total Bilirubin (0.2-1.3) mg/dL AST (14-36) U/L Alkaline Phosphatase (38-126) U/L Total Protein (6.3-8.2) g/dL Albumin (3.5-5.0) g/dL 11/16/19 11/16/19 Range/Units 07:21 11:12 RBC (3.80-5.40) m/uL Hgb (11.4-16.0) gm/dL MCV (80.0-100.0) fL MCH (25.0-35.0) pg Plt Count (150-450) k/uL Macrocytosis Chloride 110 H (98-107) mmol/L Carbon Dioxide 21 L (22-30) mmol/L BUN 28 H (7-17) mg/dL Creatinine 1.43 H (0.52-1.04) mg/dL POC Glucose (mg/dL) 165 H (75-99) mg/dL Calcium 8.2 L (8.4-10.2) mg/dL Total Bilirubin 2.5 H (0.2-1.3) mg/dL AST 59 H (14-36) U/L Alkaline Phosphatase 253 H (38-126) U/L Total Protein 6.1 L (6.3-8.2) g/dL Albumin 2.3 L (3.5-5.0) g/dL Diabetes panel 11/16/19 Range/Units 07:21 Sodium 138 (137-145) mmol/L Potassium 3.8 (3.5-5.1) mmol/L Chloride 110 H (98-107) mmol/L Carbon Dioxide 21 L (22-30) mmol/L BUN 28 H (7-17) mg/dL Creatinine 1.43 H (0.52-1.04) mg/dL Glucose 88 (74-99) mg/dL Calcium 8.2 L (8.4-10.2) mg/dL AST 59 H (14-36) U/L ALT 29 (4-34) U/L Alkaline Phosphatase 253 H (38-126) U/L Total Protein 6.1 L (6.3-8.2) g/dL Albumin 2.3 L (3.5-5.0) g/dL Calcium panel 11/16/19 Range/Units 07:21 Calcium 8.2 L (8.4-10.2) mg/dL Albumin 2.3 L (3.5-5.0) g/dL Pituitary panel 11/16/19 Range/Units 07:21 Sodium 138 (137-145) mmol/L Potassium 3.8 (3.5-5.1) mmol/L Chloride 110 H (98-107) mmol/L Carbon Dioxide 21 L (22-30) mmol/L BUN 28 H (7-17) mg/dL Creatinine 1.43 H (0.52-1.04) mg/dL Glucose 88 (74-99) mg/dL Calcium 8.2 L (8.4-10.2) mg/dL Adrenal panel 11/16/19 Range/Units 07:21 Sodium 138 (137-145) mmol/L Potassium 3.8 (3.5-5.1) mmol/L Chloride 110 H (98-107) mmol/L Carbon Dioxide 21 L (22-30) mmol/L BUN 28 H (7-17) mg/dL Creatinine 1.43 H (0.52-1.04) mg/dL Glucose 88 (74-99) mg/dL Calcium 8.2 L (8.4-10.2) mg/dL Total Bilirubin 2.5 H (0.2-1.3) mg/dL AST 59 H (14-36) U/L ALT 29 (4-34) U/L Alkaline Phosphatase 253 H (38-126) U/L Total Protein 6.1 L (6.3-8.2) g/dL Albumin 2.3 L (3.5-5.0) g/dL Assessment and Plan Plan: 74-year-old female with medical history of hepatocellular carcinoma, cirrhosis with recent abdominal pain - Paracentesis was completed by GI with no obvious evidence of bacterial peritonitis - Continue treatment for pneumonia - On exam, patient does have a palpable cyst versus lipoma in the left side of her abdomen where she is complaining of pain. This was reviewed under CT that was performed on 11/08/19 with no obvious abnormality found on imaging of the abdominal wall. - Patient is tolerating diet and not complaining of any reflux symptoms. We will continue Protonix at this time. - There is no plan for surgical intervention. Due to her history of hepatocellular carcinoma and cirrhosis, continue with medical management.
--- NOTE | 2019-11-16 14:35 | P.PN ---
Subjective Progress Note Date: 11/16/19 Principal diagnosis: Acute left lower lobe pneumonia and hepatocellular carcinoma as well as ascites and liver cirrhosis This is a 74-year-old female with history of multiple medical problems including hepatocellular liver cancer, nonalcoholic liver cirrhosis, seen in the ER on 01/07/2019, patient was complaining of 2 days history of nonproductive cough, nasal congestion, chills, and she had a temp as high as 102. She was also complaining of diffuse abdominal cramping with mild abdominal distention. She was concerned that she may require paracentesis for her recurrent ascites. Patient had a previous history of colostomy secondary to diverticulitis. She has been noticing some bright red blood in her ostomy bag that day prior to admission. Patient had no urinary symptoms although she had previous history of recurrent urinary tract infections. Patient was admitted with the impression of febrile illness, she had a relatively normal chest x-ray on admission, she was also diagnosed with acute kidney injury, and diuretics were placed on hold. She had moderate amount of abdominal ascites, and her other medical problems on admission included nonalcoholic liver cirrhosis, chronic colonization of urine with VRE, and type 2 diabetes. Patient was seen by infectious disease on consultation, and he was concerned about ascites and spontaneous bacterial peritonitis or possible other intra-abdominal source of infection. Patient was placed on Levaquin and Rocephin. Her urine came back positive for Enterococcus faecalis, but it was felt to be mostly colonization. Her paracentesis fluid came back negative for infection. On 11/08/2019, patient had a CT of the ab domen and pelvis, and it clearly showed left lower lobe infiltrate consistent with pneumonia involving the left lower lobe. There was small pleural effusion noted. Considering the abnormality on the CT of the abdomen and pelvis showing infiltrate in the left lower lobe, this consult was initiated. Patient presented initially with pulmonary symptoms, however her chest x-ray on admission was clear. Patient describes cough, it is productive with yellow phlegm, she had a T-max of 99.1, presently afebrile. She is on room air, and O2 saturation is 100%. Reevaluated today on 11/12/2019, patient seems to be feeling better today, less cough, less shortness of breath, remains on antibiotics as per infectious disease on the case. Chest x-ray this morning showed minimal left lower lobe infiltrate and small tiny effusion. Clinically the patient is feeling better. WBC count is 3.9 hemoglobin is 10.3 electrolytes are normal renal profile showed a creatinine of 1.31, improving compared to the last few days she had a baseline of 1.59 on admission. Her total bilirubin is also improving from 3.3 down to 1.5 today. On 11/13/2019 patient seen in follow-up on medical surgical floor. She is awake and alert, in no acute distress, she is currently on room air, she states she is feeling better, breathing easier. Pulse ox on room is 100%, hemodynamically stable, afebrile, respirations are nonlabored, she is on a combination of Rocephin, Levaquin, and vancomycin. No significant cough or congestion. Sputum culture was positive for MRSA, and urine culture was positive for Enterococcus faecalis. Today's labs have been reviewed, showing white blood cell count of 5.0, hemoglobin of 11.1, sodium of 136, potassium is 4.0, chloride is 108, CO2 is 20, B1 is 25 creatinine is 1.35 On 11/14/2019 patient seen in follow-up on medical surgical floor. Resting comfortably in bed, in no acute distress, denies any shortness of breath, room air pulse ox is 99%, no fever or chills, hemodynamically stable, no acute issues overnight lung sounds are clear. No cough or congestion, patient has been treated with accommodation of Rocephin, Levaquin and vancomycin for MRSA pneumonia, and evidence of Enterococcus faecalis in the urine cultures. Breathing is comfortable. ID service is following. No febrile episodes overnight. On 11/16/2019 patient is seen in follow-up on medical surgical floor. Her breathing has significantly improved, her lung sounds are clear, she is on room air, with a pulse ox of 97%, she is afebrile, she is on vancomycin for MRSA in the sputum and urine cultures positive for Enterococcus faecalis, she is scheduled for PICC line insertion today, and the recommendation from ID service is 2 weeks of outpatient IV antibiotics in the form of vancomycin. She's been a febrile. No pulmonary complaints, today's labs have been reviewed Objective - Vital Signs Vital signs: Vital Signs Temp 98.5 F 11/16/19 12:16 Pulse 63 11/16/19 12:16 Resp 17 11/16/19 12:16 BP 94/50 11/16/19 12:16 Pulse Ox 97 11/16/19 12:16 Intake & Output 11/15/19 11/16/19 11/16/19 18:59 06:59 18:59 Intake Total 850 400 Balance 850 400 Weight 90.718 kg Intake: Intake, IV Titration 250 Amount Vancomycin 1,500 mg In 250 Sodium Chloride 0.9% 250 ml @ 125 mls/hr IVPB Q16H [facility] Rx#:[id number] Oral 600 400 Other: Voiding Method Toilet Toilet Toilet # Voids 2 1 - Exam GENERAL EXAM: Alert, pleasant, 74-year-old white female, on room air, with a pulse ox of 100% comfortable in no apparent distress. HEAD: Normocephalic/atraumatic. EYES: Normal reaction of pupils, equal size. Conjunctiva pink, sclera white. NOSE: Clear with pink turbinates. THROAT: No erythema or exudates. NECK: No masses, no JVD, no thyroid enlargement, no adenopathy. CHEST: No chest wall deformity. Symmetrical expansion. LUNGS: Equal air entry with no crackles, wheeze, rhonchi or dullness. CVS: Regular rate and rhythm, normal S1 and S2, no gallops, no murmurs, no rubs ABDOMEN: Soft, nontender. No hepatosplenomegaly, normal bowel sounds, no guarding or rigidity. EXTREMITIES: No clubbing, no edema, no cyanosis, 2+ pulses and upper and lower extremities. MUSCULOSKELETAL: Muscle strength and tone normal. SPINE: No scoliosis or deformity SKIN: No rashes CENTRAL NERVOUS SYSTEM: Alert and oriented -3. No focal deficits, tone is normal in all 4 extremities. PSYCHIATRIC: Alert and oriented -3. Appropriate affect. Intact judgment and insight. - Labs CBC & Chem 7: 11/16/19 07:21 11/16/19 07:21 Labs: Abnormal Lab Results - Last 24 Hours (Table) 11/15/19 11/15/19 11/16/19 Range/Units 17:06 20:04 07:21 RBC 3.17 L (3.80-5.40) m/uL Hgb 11.2 L (11.4-16.0) gm/dL MCV 109.4 H (80.0-100.0) fL MCH 35.4 H (25.0-35.0) pg Plt Count 121 L (150-450) k/uL Macrocytosis Marked A Chloride (98-107) mmol/L Carbon Dioxide (22-30) mmol/L BUN (7-17) mg/dL Creatinine (0.52-1.04) mg/dL POC Glucose (mg/dL) 195 H 140 H (75-99) mg/dL Calcium (8.4-10.2) mg/dL Total Bilirubin (0.2-1.3) mg/dL AST (14-36) U/L Alkaline Phosphatase (38-126) U/L Total Protein (6.3-8.2) g/dL Albumin (3.5-5.0) g/dL 11/16/19 11/16/19 Range/Units 07:21 11:12 RBC (3.80-5.40) m/uL Hgb (11.4-16.0) gm/dL MCV (80.0-100.0) fL MCH (25.0-35.0) pg Plt Count (150-450) k/uL Macrocytosis Chloride 110 H (98-107) mmol/L Carbon Dioxide 21 L (22-30) mmol/L BUN 28 H (7-17) mg/dL Creatinine 1.43 H (0.52-1.04) mg/dL POC Glucose (mg/dL) 165 H (75-99) mg/dL Calcium 8.2 L (8.4-10.2) mg/dL Total Bilirubin 2.5 H (0.2-1.3) mg/dL AST 59 H (14-36) U/L Alkaline Phosphatase 253 H (38-126) U/L Total Protein 6.1 L (6.3-8.2) g/dL Albumin 2.3 L (3.5-5.0) g/dL Assessment and Plan Plan: Assessment: #1. Acute left lower lobe pneumonia, related to MRSA infection #2. Acute urinary tract infection related to Enterococcus faecalis #3. Chronic abdominal ascites with history of liver cirrhosis #4. History of hepatocellular carcinoma #5. History of chronic kidney disease stage III #6. 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 History of depression #8. History of pancytopenia secondary to known history of hepatocellular carcinoma #9. Type 2 diabetes Plan: Continue current medical treatment, patient is awaiting PICC line insertion, denies any pulmonary complaints, she is on room air, no worsening dyspnea, and 10 current antibiotics, patient is on vancomycin for MRSA pneumonia and Enterococcus faecalis urinary tract infection, clinically appears to be stable, from pulmonary perspective she could be considered for discharge home once cleared by attending physician I performed a history & physical examination of the patient and discussed their management with my nurse practitioner, Camille Pettit. I reviewed the nurse practitioner's note and agree with the documented findings and plan of care. Lung sounds are positive for diminished breath sounds at the bases, no wheezes. The findings and the impression was discussed with the patient. I attest to the documentation by the nurse practitioner. Time with Patient: Less than 30
[2019-11-16] MEDS: TORSEMIDE 20 MG TAB PO SCH (17:00)
[2019-11-16 17:03] LABS: Glucose,Whole Blood 124 mg/dL (75-99)
[2019-11-16 20:21] LABS: Glucose,Whole Blood 114 mg/dL (75-99)
[2019-11-17] MEDS: MORPHINE SULFATE 4 MG/ML SYRINGE IV PRN ×3 (01:19→20:15)
[2019-11-17 07:04] LABS: Glucose,Whole Blood 88 mg/dL (75-99)
[2019-11-17] MEDS: LACTULOSE 20 GM/30 ML CUP PO SCH ×3 (08:15→22:21)
[2019-11-17] MEDS: METOPROLOL TARTRATE 12.5 MG TAB PO SCH (08:16)
[2019-11-17] MEDS: TORSEMIDE 20 MG TAB PO SCH ×2 (08:17→08:24)
[2019-11-17] MEDS: buPROPion SR 150 MG TABLET.ER PO SCH (08:17)
[2019-11-17] MEDS: SUCRALFATE 1 GM TAB PO SCH ×4 (08:17→22:21)
[2019-11-17] MEDS: FERROUS SULFATE 325 MG TAB PO SCH ×2 (08:17→22:21)
[2019-11-17] MEDS: ISOSORBIDE MONONITRATE ER 30 MG TAB.ER.24H PO SCH (08:17)
[2019-11-17] MEDS: MORPHINE SULFATE ER 15 MG TABLET PO SCH ×2 (08:18→22:20)
[2019-11-17] MEDS: PANTOPRAZOLE 40 MG TABLET PO SCH (08:19)
[2019-11-17] MEDS: DICYCLOMINE 10 MG CAP PO SCH (08:19)
[2019-11-17] MEDS: CHOLECALCIFEROL 1,000 UNIT TAB PO SCH (08:19)
--- NOTE | 2019-11-17 08:32 | PN ---
PROGRESS NOTE DATE OF SERVICE: 11/16/2019 REASON FOR FOLLOWUP: MRSA pneumonia. INTERVAL HISTORY: The patient is currently afebrile. Patient has been breathing comfortably. Patient continued to have a cough. She is bringing up sputum. No chest pain. No nausea, no vomiting. Has some epigastric discomfort and no diarrhea. PHYSICAL EXAMINATION: Blood pressure 112/58 with a pulse of 66, temperature 98.3, she is 97% on room air. General description is an elderly female, up in the bed in no distress. RESPIRATORY SYSTEM: Unlabored breathing, decreased breath sounds at the base, no wheeze. HEART: S1, S2. Regular rate and rhythm. ABDOMEN: Soft no tenderness. LABS: Hemoglobin is 11.1, white count if 5.2 BUN of 28, creatinine is 1.43. DIAGNOSTIC IMPRESSION AND PLAN: Patient with MRSA pneumonia, currently covered with vancomycin. Kidney function is currently stable. Zyvox could not be used because of her SSRI. If the patient ends up staying in the hospital another few days, would recommend placing a PICC line and with finishing therapy with doxycycline. Continue supportive care. MMODL / IJN: [id number] /
[2019-11-17] MEDS: MAG HYDROX/AL HYDROX/SIMETH 30 ML, diphenhydrAMINE ELIXIR 75 MG, LIDOCAINE VISCOUS 30 ML PO SCH ×9 (08:42→22:25)
[2019-11-17] MEDS: INSULIN REGULAR 100 UNIT/ML VIAL SQ SCH ×3 (08:44→17:39)
[2019-11-17] MEDS: INSULIN NPH 300 UNIT/3 ML VIAL SQ SCH ×2 (08:45→17:40)
[2019-11-17] MEDS ORDERED: VANCOMYCIN TROUGH DUE 1 EACH MISC MISCELLANE ONE (09:00)
--- NOTE | 2019-11-17 10:37 | P.NPCON ---
History of Present Illness - Reason for Consult acute renal failure - History of Present Illness Reason for consultation: Acute kidney injury History of present illness: Patient is a 74-year-old female seen in renal consultation for acute kidney injury. Patient has chronic kidney disease stage III with baseline creatinine in the range of 1.1-1.3. Renal function is fairly stable with creatinine at 1.43 today. UA is benign. Patient has history of liver cancer. She underwent paracentesis with 3 L drained on 11/07/2019. Patient presented to the hospital with fever. She was also complaining of a nonproductive cough. She denies chest pain or shortness of breath. Patient was noted to have MRSA in her sputum injury PIV urine culture positive for enterococcus. She is maintained on IV antibiotics. Patient had a PICC line placed yesterday. She currently has a Singh catheter and is nonoliguric. Patient states her abdomen feels a little distended again. She scheduled to undergo abdominal ultrasound. She is currently maintained on torsemide 20 mg once daily. Denies regular use of nonsteroidals. No vomiting or diarrhea. Vital signs are stable. General: The patient appeared well nourished and normally developed. HEENT: Head exam is unremarkable. Neck is without jugular venous distension. LUNGS: Lungs are clear to auscultation and percussion. Breath sounds decreased. HEART: Rate and Rhythm are regular. First and second heart sounds normal. No murmurs, rubs or gallops. ABDOMEN: Bowel sounds present. Mild distention noted. EXTREMITITES: No clubbing, cyanosis, or edema. Past Medical History Past Medical History: Cancer, Diabetes Mellitus, Hypertension, Liver Disease, Myocardial Infarction (MS), Renal Disease Additional Past Medical History / Comment(s): Hepatocellular liver cancer with chemo immobilization-last time being 2017, ascities with paracentesis's may 2019, nonalcoholic liver cirrhosis, chronic pancytopenia, chronic elevated ammonia levels, hepatic encephalopathy, chronic elevated LFTs, chronic abdominal pain, stomach ulcer, diverticular disease with ileostomy, IDDM type II, iron anemia, CKD stage III, nonsustained vtach, UTI, high ammonia levels Last Myocardial Infarction Date:: unk History of Any Multi-Drug Resistant Organisms: MRSA, VRE Date of last positivie culture/infection: 07/22/19- VRE; 11/10/19-MRSA MDRO Source:: Urine VRE/ SPUTUM MRSA Past Surgical History: Appendectomy, Bowel Resection, Section, Cholecystectomy, Hysterectomy, Tonsillectomy Additional Past Surgical History / Comment(s): Chemo immobilizations, liver b iopsies, paracentesis, bowel resection d/t diverticulitis/ileostomy, R rotator cuff repair, carpal tunnel release-laterality unknown. Past Anesthesia/Blood Transfusion Reactions: No Reported Reaction Past Psychological History: Anxiety, Depression Smoking Status: Former smoker Past Alcohol Use History: None Reported Past Drug Use History: None Reported - Past Family History Mother History Unknown: Yes Family Medical History: Congestive Heart Failure (CHF) Additional Family Medical History / Comment(s): Mother is 94 yrs old. Father Family Medical History: Chest Pain / Angina Additional Family Medical History / Comment(s): Father is . Medications and Allergies Home Medications Medication Instructions Recorded Confirmed Type Omeprazole [PriLOSEC] 20 mg PO DAILY 10/23/18 11/09/19 History Sucralfate [Carafate] 1 gm PO ACHS 10/23/18 11/09/19 History Insulin Regular, Human [NovoLIN R] 10 unit SQ AC-TID 10/24/18 11/09/19 History Cholecalciferol [Vitamin D3 (25 2,000 unit PO DAILY 01/16/19 11/09/19 History Mcg = 1000 Iu)] Ferrous Sulfate [Iron (65 MG 325 mg PO BID 01/31/19 11/09/19 History Elemental)] Morphine Sulfate [Ms Contin] 15 mg PO BID 05/15/19 11/09/19 History buPROPion HCL [Wellbutrin SR] 150 mg PO DAILY 06/12/19 11/09/19 History clonazePAM [KlonoPIN] 0.5 mg PO BID PRN 06/12/19 11/06/19 History Lactulose [Cephulac] 30 gm PO TID 07/22/19 11/09/19 History Isosorbide Mononitrate ER [Imdur] 30 mg PO DAILY 30 Days #30 07/26/19 11/09/19 Rx tab.er.24h Furosemide [Lasix] 40 mg PO DAILY 30 Days #30 tablet 08/07/19 11/09/19 Rx Spironolactone [Aldactone] 50 mg PO DAILY 30 Days #30 tab 08/07/19 11/09/19 Rx Dicyclomine [Bentyl] 10 mg PO DAILY 10/02/19 11/09/19 History Insulin NPH Human Isophane 18 unit SQ AC-BID 10/02/19 11/09/19 History [NovoLIN N] Metoprolol Tartrate [Lopressor] 6.25 mg PO DAILY tab 10/04/19 11/06/19 Rx Allergies Allergy/AdvReac Type Severity Reaction Status Date / Time amlodipine Allergy Rash/Hives Verified 11/06/19 13:17 oxycodone Allergy Rash/Hives Verified 11/06/19 13:17 Penicillins Allergy Rash/Hives Verified 11/06/19 13:17 hydromorphone [From Dilaudid] AdvReac Mild tactile Verified 11/06/19 13:17 disturbance GREG Inhibitors AdvReac Cough Verified 11/06/19 13:17 sodium dodecyclbenzene Allergy Rash/Hives Uncoded 11/06/19 13:17 sulfonate Physical Exam Vitals: Vital Signs Temp Pulse Pulse Resp BP Pulse Ox 11/17/19 04:49 98.3 F 69 18 98/52 96 11/16/19 20:39 98.3 F 66 18 112/58 97 11/16/19 12:16 98.5 F 63 17 94/50 97 Intake and Output 11/16/19 11/17/19 11/17/19 22:59 06:59 14:59 Intake Total 125 Output Total 281 Balance 125 -281 Intake: Intake, IV Titration 125 Amount Vancomycin 1,250 mg In 125 Sodium Chloride 0.9% 250 ml @ 125 mls/hr IVPB Q16H [facility] Rx#:[id number] Output: Urine 280 Stool 1 Other: Voiding Method Toilet # Voids 1 Results - Lab Results Most recent lab results Calcium 8.2 mg/dL (8.4-10.2) L 11/16/19 07:21 11/16/19 07:21 11/16/19 07:21 Assessment and Plan Plan: Assessment: 1. Acute kidney injury secondary to ATN secondary to infection and hypotension. Hepatorenal cannot be completely ruled out. Renal function stable. Creatinine 1.43 as of yesterday. Urinalysis benign. 2. Hepatocellular carcinoma. 3. Ascites status post paracentesis. 3 L drained on November 07. 4. MRSA pneumonia maintained on IV Zyvox. Vancomycin discontinued. Infectious disease following. 5. UTI with urine culture positive for enterococcus. 6. Mild metabolic acidosis secondary to acute kidney injury. 7. Chronic kidney disease stage III with baseline creatinine in the range of 1.1-1.3. Plan: Maintain torsemide 20 mg once daily. Add spironolactone 25 mg twice daily. Follow-up abdominal ultrasound. If scheduled for paracentesis, I will give her 25 g of albumin pre-and post- paracentesis. Potential discharge today. Repeat BMP and magnesium level 2-3 days postdi scharge. Follow up outpatient in the next 2 weeks. Thank you for the consultation. I will continue to follow this patient with you during her hospital stay.
[2019-11-17] MEDS: VANCOMYCIN 1,250 MG in SODIUM CHLORIDE 0.9% 250 ML IVPB SCH (11:11)
[2019-11-17 11:34] LABS: Glucose,Whole Blood 182 mg/dL (75-99)
--- NOTE | 2019-11-17 11:53 | US ---
EXAMINATION TYPE: US abdomen limited DATE OF EXAM: 11/17/2019 COMPARISON: None CLINICAL HISTORY: 74-year-old female for ascites fluid assessment. Technique: Multiple sonographic images of the 4 abdominal quadrants for assessment of ascites. FINDINGS: All four quadrants scanned. There is fluid in each quadrant with largest amount in the LLQ region, 11 .7 cm pocket. IMPRESSION: Moderate abdominal ascites, largest pocket in the left lower quadrant measuring 11.7 cm.
--- NOTE | 2019-11-17 13:22 | PN ---
PROGRESS NOTE Covering for Dr. Lea. DATE OF SERVICE: 11/17/2019 Patient is a 74-year-old female who is seen lying in bed, is awake and alert. Continues to complain of that upper abdominal pain. Patient was seen by General Surgery for further evaluation. Patient is afebrile, hemodynamically stable, in no acute distress. ON PHYSICAL EXAM: VITAL SIGNS: Temp 98.6, heart rate 56, respiratory rate 17, blood pressure is 94/52, O2 saturation 99% on room air. HEENT. Head is normocephalic, atraumatic. Neck is supple. Trachea is midline. LUNGS: Are essentially clear. No rales or wheezes. HEART: S1, S2 are heard. Not tachycardic. ABDOMEN: Soft, distended. Bowel sounds are heard. EXTREMITIES: With no edema. NEUROLOGIC: Patient is awake and alert. LABS: Glucose is 182. Vanco trough is 22.6. IMAGING: Ultrasound of the abdomen shows moderate abdominal ascites, largest pocket in the left lower quadrant measuring 11.7 cm. IMPRESSION AT THIS TIME: 1. Methicillin-resistant Staphylococcus aureus pneumonia. 2. Acute kidney injury. 3. History of hepatocellular carcinoma with worsening ascites. 4. Urinary colonization with VRE. 5. Diabetes mellitus type 2. PLAN: Continue current medications, which have been reviewed. Continue antibiotics per Infectious Disease. Will consult Interventional Radiology for a paracentesis and continue to follow patient closely making further changes as necessary. MMODL / IJN: [id number] /
--- NOTE | 2019-11-17 14:03 | CDI ---
Documentation Clarification Form Date: 11/17/2019 01:50:44 PM From: Maya BarrettWardDONOVAN sosa, CCDS Admit Date: 11/06/2019 05:54:00 PM Patient Name: Charlene Keenan Visit Number: [id number] Discharge Date: ATTENTION: The Clinical Documentation Specialists (CDI) and [facility] Coding Staff appreciate your assistance in clarifying documentation. Please respond to the clarification below the line at the bottom and electronically sign. The CDI & [facility] Coding staff will review the response and follow-up if needed. Please note: Queries are made part of the Legal Health Record. If you have any questions, please contact the author of this message via ITS. Dr. Artemio Lea: The patient presented with the following: Fever, chills, nonproductive cough & nasal congestion. Exposed to multiple sick contacts with similar symptoms. Temp at home: 102. Also diffuse abdominal cramping with mild abdominal distention. Has colostomy sec to diverticulitis. History/Risk Factors: Diverticulitis with colostomy. Liver Cancer, DM II, Hypertension, NV, CKD stage III, Chronic pancytopenia & chronic elevated ammonia levels, MRSA & VRE. Clinical Indicators: Presented as above, diagnosed with MRSA pneumonia, MORENA with ATN, Ascites, UTI, Hypotension & Pancytopenia. VS 11/06: T 100.5, P 76, R 18, BP 102/55 - 98/50; PO 96 RA LAB: WBC (7.1), Neut (0.5), Na 130*, BUN 35^, Cr 1.59^, Glucose 158^, elevated liver enzymes. Lactic acid 11/06: (1.5), 11/07: 3.2^^ Blood cultures: neg; Urine culture final: Enterococcus faecalis; Sputum culture final: MRSA Treatment: IV fluid bolus, IV Ms, IV Zofran, IV Levaquin, IV Rocephin, IV Vanco added 11/12. Consults: ID, GI, Pulmonary In your professional opinion, please clarify if these findings signify one of the following conditions, whether the condition is POA, and cause, if known: o Sepsis ruled out o Sepsis o Severe Sepsis o Septic Shock o Other, please specify o Unable to determine Present on Admission: YES or NO Identify the (suspected) organism Link or clarify if there is associated (due to/with): Organ failure Shock (Last Revision: February 2018) Sepsis present on admit MTDD
--- NOTE | 2019-11-17 14:40 | P.PN ---
Subjective Progress Note Date: 11/17/19 Principal diagnosis: Decompensated cryptogenic cirrhosis, history of HCC, ascites Patient with a known history of decompensated cryptogenic cirrhosis and ascites requiring paracentesis in the past. Order place for therapeutic paracentesis. The GI service will stand by. Objective - Vital Signs Vital signs: Vital Signs Temp 98.6 F 11/17/19 12:00 Pulse 56 L 11/17/19 12:00 Resp 17 11/17/19 12:00 BP 94/52 11/17/19 12:00 Pulse Ox 99 11/17/19 12:00 Intake & Output 11/16/19 11/17/19 11/17/19 18:59 06:59 18:59 Intake Total 1200 125 Output Total 1 281 Balance 1199 -156 Intake: Intake, IV Titration 125 Amount Vancomycin 1,250 mg In 125 Sodium Chloride 0.9% 250 ml @ 125 mls/hr IVPB Q16H [facility] Rx#:[id number] Oral 1200 Output: Urine 280 Stool 1 1 Other: Voiding Method Toilet Toilet Indwelling Catheter # Voids 2 1 - Labs CBC & Chem 7: 11/16/19 07:21 11/16/19 07:21 Labs: Abnormal Lab Results - Last 24 Hours (Table) 11/16/19 11/16/19 11/17/19 Range/Units 17:01 20:20 11:33 POC Glucose (mg/dL) 124 H 114 H 182 H (75-99) mg/dL
--- NOTE | 2019-11-17 15:12 | IR ---
PICC LINE PLACEMENT: HISTORY: Infection requiring long-term antibiotic therapy PROCEDURE: Ultrasound and fluoroscopic guidance of PICC line placement. COMPLICATIONS: None ANESTHESIA: 1. 1% Lidocaine locally. FINDINGS/TECHNIQUE: The procedure was explained to the patient. The risks, complications, benefits and alternatives were discussed and any questions were answered. Informed consent was obtained. The patient was placed supine on the fluoroscopic table and prepped and draped in the usual sterile fash ion. Utilizing a 21 gauge needle and sonographic and fluoroscopic guidance, access in the left brac hial vein was achieved and there is placement of a 0.018 guidewire. The vein is patent. A 4-F sheat h was placed over the guidewire. The guidewire and dilator were removed and a 4-F. PICC line was joselyn emmanuel through the sheath with the tip at the level of the SVC. The sheath was removed, the catheter wa s flushed and sutured into position. The patient was stable throughout the procedure and remained st able upon discharge from the Department of Radiology. The vein puncture was patent under ultrasound. A aguilar scale image was obtained to document patency of the vein punctured. All elements of the maximal barrier technique were utilized. FLUOROSCOPY TIME: 0.1 minutes of fluoroscopy and one image submitted IMPRESSION: Successful PICC line placement under ultrasound and fluoroscopic guidance.
[2019-11-17 16:24] LABS: INR 1.4 (<1.2); Prothrombin Time 14.5 sec (9.0-12.0)
[2019-11-17 17:12] LABS: Glucose,Whole Blood 96 mg/dL (75-99)
--- NOTE | 2019-11-17 18:26 | PN ---
PROGRESS NOTE DATE OF SERVICE: 11/17/2019. REASON FOR FOLLOWUP VISIT: MRSA pneumonia. INTERVAL HISTORY: The patient is currently afebrile. Patient has been breathing comfortably. The patient denies having any chest pain. She did have a cough but denies any worsening sputum production. Main symptoms has been abdominal pain. No diarrhea. PHYSICAL EXAMINATION: Blood pressure is 94/52 with a pulse of 53, temperature 98.6 and 99% on room air. General description is an elderly female up in the bed in no distress. Respiratory system: Unlabored breathing. Clear to auscultation anteriorly. Heart S1, S2. Regular rate and rhythm. Abdomen soft. No tenderness. No guarding or rigidity. LABS: BUN of 28 with creatinine 1.43 with liver enzymes mildly elevated. DIAGNOSTIC IMPRESSION AND PLAN: Patient with MRSA and pneumonia for which the patient is currently on IV vancomycin, dose needs to be adjusted down to keep the trough around 15. Kidney function will be monitored closely, duration of antibiotic total will be 10 days to 2 weeks. Continue supportive care. HOMERL / DREAN: [id number] /
[2019-11-17 20:25] LABS: Glucose,Whole Blood 128 mg/dL (75-99)
[2019-11-17] MEDS: SPIRONOLACTONE 25 MG TAB PO SCH (22:21)
[2019-11-18] MEDS: VANCOMYCIN 1,000 MG in SODIUM CHLORIDE 0.9% 250 ML IVPB SCH ×2 (03:54→19:18)
[2019-11-18] MEDS: MORPHINE SULFATE 4 MG/ML SYRINGE IV PRN ×3 (04:42→19:30)
[2019-11-18 07:25] LABS: Glucose,Whole Blood 127 mg/dL (75-99)
[2019-11-18] MEDS: INSULIN REGULAR 100 UNIT/ML VIAL SQ SCH ×3 (08:42→17:19)
[2019-11-18] MEDS: INSULIN NPH 300 UNIT/3 ML VIAL SQ SCH ×2 (08:42→17:19)
[2019-11-18] MEDS: METOPROLOL TARTRATE 12.5 MG TAB PO SCH (08:42)
[2019-11-18] MEDS: SPIRONOLACTONE 25 MG TAB PO SCH ×2 (08:43→22:02)
[2019-11-18] MEDS: MORPHINE SULFATE ER 15 MG TABLET PO SCH ×2 (08:43→22:02)
[2019-11-18] MEDS: SUCRALFATE 1 GM TAB PO SCH ×4 (08:43→22:02)
[2019-11-18] MEDS: CHOLECALCIFEROL 1,000 UNIT TAB PO SCH (08:43)
[2019-11-18] MEDS: FERROUS SULFATE 325 MG TAB PO SCH ×2 (08:43→22:02)
[2019-11-18] MEDS: ISOSORBIDE MONONITRATE ER 30 MG TAB.ER.24H PO SCH (08:43)
[2019-11-18] MEDS: DICYCLOMINE 10 MG CAP PO SCH (08:44)
[2019-11-18] MEDS: PANTOPRAZOLE 40 MG TABLET PO SCH (08:44)
[2019-11-18] MEDS: LACTULOSE 20 GM/30 ML CUP PO SCH ×3 (08:45→22:02)
[2019-11-18] MEDS: TORSEMIDE 20 MG TAB PO SCH (08:46)
[2019-11-18] MEDS: MAG HYDROX/AL HYDROX/SIMETH 30 ML, diphenhydrAMINE ELIXIR 75 MG, LIDOCAINE VISCOUS 30 ML PO SCH ×9 (08:46→22:02)
[2019-11-18] MEDS: buPROPion SR 150 MG TABLET.ER PO SCH (08:46)
[2019-11-18 11:30] LABS: Glucose,Whole Blood 225 mg/dL (75-99)
--- NOTE | 2019-11-18 12:18 | PN ---
PROGRESS NOTE DATE OF SERVICE: 11/18/2019 REASON FOR FOLLOWUP: MRSA pneumonia. INTERVAL HISTORY: The patient is currently afebrile. The patient is breathing more comfortably. Patient denies having any chest pain. Continues to have a cough. Overall sputum production has decreased. No nausea, no vomiting or diarrhea. PHYSICAL EXAMINATION: Blood pressure is 109/56, pulse of 66, temperature 98.3, she is 95% on room air. General description is an elderly female, lying in bed in no distress. RESPIRATORY SYSTEM: Unlabored breathing. Decreased breath sounds in the bases, no wheeze. HEART: S1, S2. Regular rate and rhythm. ABDOMEN: Soft, no tenderness. LABS: No new labs have been obtained today. DIAGNOSTIC IMPRESSION AND PLAN: Patient with MRSA pneumonia. Patient is currently covered with vancomycin. Patient's kidney function is currently stable at 1.35. Creatinine will be monitored closely. The patient to continue on vancomycin to finish a total of 2-week course of therapy and continue supportive care. MMODL / IJN: [id number] /
--- NOTE | 2019-11-18 13:04 | PN ---
PROGRESS NOTE She was seen on 11/18/2019. She has been hemodynamically stable and has some mild shortness of breath. She has swelling of her abdomen. On physical examination, respiratory rate is 18, pulse rate of 66, temperature 98.3, blood pressure 109/56, O2 saturation on room air is 95%. HEENT reveals pupils that are equal. Chest is clear. Cardiovascular system reveals an S1, S2. Abdomen is mildly distended. Ascites is present. There is trace pedal edema. Labs were reviewed. IMPRESSION: 1. Ascites, which is recurrent for which she will undergo a paracentesis as recommended by Gastroenterology. 2. MRSA pneumonia. 3. Acute kidney injury. 4. Urinary colonization with VRE. 5. Diabetes mellitus type 2. Continue vancomycin. Consult Interventional Radiology for further removal off for fluid. Increase her activity level slowly. Her prognosis is guarded. MMODL / IJN: [id number] /
[2019-11-18] MEDS: ONDANSETRON 4 MG/2 ML VIAL IVP PRN (14:48)
[2019-11-18] MEDS: clonazePAM 0.5 MG TAB PO PRN (17:16)
[2019-11-18 17:18] LABS: Glucose,Whole Blood 162 mg/dL (75-99)
[2019-11-18] MEDS ORDERED: ONDANSETRON 4 MG/2 ML VIAL IVP PRN (19:30)
[2019-11-18 20:49] LABS: Glucose,Whole Blood 143 mg/dL (75-99)
[2019-11-19 07:10] LABS: Glucose,Whole Blood 99 mg/dL (75-99)
[2019-11-19] MEDS: SUCRALFATE 1 GM TAB PO SCH ×4 (07:52→22:06)
[2019-11-19] MEDS: PANTOPRAZOLE 40 MG TABLET PO SCH (07:53)
[2019-11-19] MEDS: ISOSORBIDE MONONITRATE ER 30 MG TAB.ER.24H PO SCH (07:54)
[2019-11-19] MEDS: DICYCLOMINE 10 MG CAP PO SCH (07:55)
[2019-11-19] MEDS: MORPHINE SULFATE ER 15 MG TABLET PO SCH ×2 (07:55→22:06)
[2019-11-19] MEDS: FERROUS SULFATE 325 MG TAB PO SCH ×2 (07:55→22:06)
[2019-11-19] MEDS: SPIRONOLACTONE 25 MG TAB PO SCH ×2 (07:55→22:06)
[2019-11-19] MEDS: INSULIN REGULAR 100 UNIT/ML VIAL SQ SCH ×3 (07:55→18:04)
[2019-11-19] MEDS: INSULIN NPH 300 UNIT/3 ML VIAL SQ SCH ×2 (07:58→18:04)
[2019-11-19] MEDS: METOPROLOL TARTRATE 12.5 MG TAB PO SCH (07:59)
[2019-11-19] MEDS: buPROPion SR 150 MG TABLET.ER PO SCH (07:59)
[2019-11-19] MEDS: LACTULOSE 20 GM/30 ML CUP PO SCH ×4 (08:00→19:55)
[2019-11-19] MEDS: CHOLECALCIFEROL 1,000 UNIT TAB PO SCH (08:00)
[2019-11-19] MEDS: MAG HYDROX/AL HYDROX/SIMETH 30 ML, diphenhydrAMINE ELIXIR 75 MG, LIDOCAINE VISCOUS 30 ML PO SCH ×9 (08:01→22:06)
[2019-11-19] MEDS: TORSEMIDE 20 MG TAB PO SCH (08:01)
[2019-11-19 11:04] LABS: Glucose,Whole Blood 199 mg/dL (75-99)
[2019-11-19] MEDS: VANCOMYCIN 1,000 MG in SODIUM CHLORIDE 0.9% 250 ML IVPB SCH (13:02)
[2019-11-19] MEDS: clonazePAM 0.5 MG TAB PO PRN (13:06)
--- NOTE | 2019-11-19 14:08 | PN ---
PROGRESS NOTE The patient is seen for followup for acute kidney injury. The patient's renal function has been stable with creatinine staying at about 1.4-1.3 mg/dL with creatinine 1.3 yesterday. Patient is currently on vancomycin. Levels have not been elevated. I do see nonsteroidal anti-inflammatory agents as well on her med list in the form of Motrin. Currently patient is maintained on Demadex. She does have some lower extremity edema. However, she denies any shortness of breath or chest pains. PHYSICAL EXAMINATION: This morning blood pressure was 109/53, heart rate 71 per minute, she is afebrile. Examination of the heart S1, S2. Examination of the lungs, decreased breath sounds at bases. Abdomen is soft, nontender. Examination of lower extremities shows trace edema bilaterally. BACK END ARCHITECT exam grossly intact. LABS: Sodium 138, potassium 3.8, BUN 28, creatinine 1.43. Last creatinine was 1.35 on 11/18/2019. ASSESSMENT: 1. Acute kidney injury, acute tubular necrosis, nonoliguric. Doubt hepatorenal. I will discontinue the NSAIDs. The patient is maintained on vancomycin, levels were not elevated, we have a trough of 22.6 on 11/17/2019. 2. Hepatocellular carcinoma. 3. Ascites. 4. Urinary tract infection with urine culture positive for enterococcus. 5. Chronic kidney disease stage 3, baseline creatinine 1.1-1.3 mg/dL. PLAN: DC Motrin. Check a basic metabolic panel in a.m. MMODL / IJN: [id number] /
--- NOTE | 2019-11-19 14:32 | PN ---
PROGRESS NOTE DATE OF SERVICE: 11/19/2019 She was seen on November 19, 2019. She has some abdominal discomfort and feels nauseous. On physical examination, respiratory rate is 18, pulse rate of 64, temperature 97.8, blood pressure 100/52, O2 saturation on room air is 98%. HEENT reveals pupils are equal. Chest is relatively clear. Cardiovascular system reveals an S1, S2. Abdomen is distended. There is trace pedal edema. Labs were reviewed. IMPRESSION: At this time is: 1. MRSA pneumonia, continue vancomycin. 2. Ascites for which she is awaiting paracentesis. 3. Medical debility. 4. Previous ileostomy. At this point in time, continue current medications. Await paracentesis. Increase activity level. Hopefully, she will get some relief of her abdominal symptomatology once she undergoes paracentesis. She was counseled regarding her condition and this approach and has a fair understanding of our recommendations. MMODL / IJN: [id number] /
[2019-11-19 17:04] LABS: Glucose,Whole Blood 84 mg/dL (75-99)
[2019-11-19 20:26] LABS: Glucose,Whole Blood 124 mg/dL (75-99)
[2019-11-19] MEDS: MORPHINE SULFATE 4 MG/ML SYRINGE IV PRN (22:48)
[2019-11-20] MEDS: clonazePAM 0.5 MG TAB PO PRN (03:29)
[2019-11-20] MEDS: VANCOMYCIN 1,000 MG in SODIUM CHLORIDE 0.9% 250 ML IVPB SCH ×2 (03:29→18:00)
--- NOTE | 2019-11-20 06:27 | PN ---
PROGRESS NOTE DATE OF SERVICE: 11/19/2019. REASON FOR FOLLOWUP: MRSA pneumonia. INTERVAL HISTORY: The patient is currently afebrile. She has been breathing comfortably. The patient denies having any chest pain. Cough has decreased in intensity. No nausea, no vomiting. No abdominal pain. No diarrhea. PHYSICAL EXAMINATION: On examination, blood pressure 100/52 with a pulse of 64 temperature 97.8. She is 98% on room air. General description is an elderly female, up in the bed in no distress. RESPIRATORY SYSTEM: Unlabored breathing, clear to auscultation anteriorly. HEART: S1, S2. Regular rate and rhythm. ABDOMEN: Soft, no tenderness. LABS: No new labs have been obtained today. DIAGNOSTIC IMPRESSION AND PLAN: Patient with methicillin-resistant Staphylococcus aureus pneumonia for which the patient is currently on vancomycin pharmacy to dose. Plan will be for total of 2-week course of antibiotic. Will need to monitor her Vanco trough and the kidney function closely. Continue with supportive care. MMODL / IJN: [id number] /
[2019-11-20 07:09] LABS: Glucose,Whole Blood 124 mg/dL (75-99)
[2019-11-20] MEDS: MAG HYDROX/AL HYDROX/SIMETH 30 ML, diphenhydrAMINE ELIXIR 75 MG, LIDOCAINE VISCOUS 30 ML PO SCH ×9 (07:58→20:21)
[2019-11-20] MEDS: FERROUS SULFATE 325 MG TAB PO SCH ×2 (08:04→20:19)
[2019-11-20] MEDS: CHOLECALCIFEROL 1,000 UNIT TAB PO SCH (08:04)
[2019-11-20] MEDS: DICYCLOMINE 10 MG CAP PO SCH (08:04)
[2019-11-20] MEDS: SPIRONOLACTONE 25 MG TAB PO SCH ×2 (08:04→20:19)
[2019-11-20] MEDS: MORPHINE SULFATE ER 15 MG TABLET PO SCH ×2 (08:04→20:19)
[2019-11-20] MEDS: TORSEMIDE 20 MG TAB PO SCH (08:05)
[2019-11-20] MEDS: SUCRALFATE 1 GM TAB PO SCH ×4 (08:05→20:19)
[2019-11-20] MEDS: buPROPion SR 150 MG TABLET.ER PO SCH (08:05)
[2019-11-20] MEDS: PANTOPRAZOLE 40 MG TABLET PO SCH (08:05)
[2019-11-20] MEDS: LACTULOSE 20 GM/30 ML CUP PO SCH ×3 (08:05→20:19)
[2019-11-20] MEDS: ISOSORBIDE MONONITRATE ER 30 MG TAB.ER.24H PO SCH (08:06)
[2019-11-20] MEDS: INSULIN NPH 300 UNIT/3 ML VIAL SQ SCH ×2 (08:07→17:59)
[2019-11-20] MEDS: METOPROLOL TARTRATE 12.5 MG TAB PO SCH (08:07)
[2019-11-20] MEDS: INSULIN REGULAR 100 UNIT/ML VIAL SQ SCH ×3 (08:08→17:59)
[2019-11-20 09:19] LABS: Basophils # (A) 0.1 k/uL (0-0.2); Basophils % (A) 1 %; Eosinophils # (A) 0.2 k/uL (0-0.7); Eosinophils % (A) 3 %; HCT 34.5 % (34.0-46.0); HGB 11.3 gm/dL (11.4-16.0); Hypochromasia Slight; Lymphocytes # (A) 1.1 k/uL (1.0-4.8); Lymphocytes % (A) 18 %; MCH 36.2 pg (25.0-35.0); MCHC 32.6 g/dL (31.0-37.0); MCV 110.9 fL (80.0-100.0); Macrocytosis Marked; Monocytes # (A) 0.4 k/uL (0-1.0); Monocytes % (A) 7 %; Neutrophils # (A) 4.1 k/uL (1.3-7.7); Neutrophils % (A) 69 %; RBC 3.11 m/uL (3.80-5.40); RDW 14.7 % (11.5-15.5); WBC 5.9 k/uL (3.8-10.6)
[2019-11-20 09:35] LABS: Albumin 2.4 g/dL (3.5-5.0); C Reactive Protein 28.2 mg/L (<10.0); Calcium 8.1 mg/dL (8.4-10.2); Potassium 3.2 mmol/L (3.5-5.1); Total Protein 6.3 g/dL (6.3-8.2)
[2019-11-20 09:55] LABS: Platelet Count 97 k/uL (150-450)
[2019-11-20 11:16] LABS: Glucose,Whole Blood 157 mg/dL (75-99)
[2019-11-20] MEDS: MORPHINE SULFATE 4 MG/ML SYRINGE IV PRN ×2 (11:26→18:09)
--- NOTE | 2019-11-20 12:39 | US ---
Therapeutic paracentesis. DATE OF EXAM: 11/20/2019 CLINICAL HISTORY: Ascites The procedure was discussed with the patient. The risks, complications, benefits, and alternatives we re discussed and any questions were answered. Informed consent was obtained. The patient was placed s upine on the ultrasound table and prepped and draped in the usual sterile fashion. All elements of maximal barrier technique were utilized. Under ultrasound guidance, access into the right lower quadrant was obtained, via the paracentesis catheter system and direct ultrasound guidanc e. Approximately 5.7 liters of straw-colored fluid was removed. The patient was stable throughout the pr ocedure and remained stable upon discharge from Department of Radiology. IMPRESSION: Successful therapeutic paracentesis under ultrasound guidance.
[2019-11-20] MEDS ORDERED: POTASSIUM CHLORIDE ER 20 MEQ TAB.ER PO STA (12:59)
--- NOTE | 2019-11-20 12:59 | P.PN ---
Subjective Patient is seen in follow-up for acute kidney injury. Renal function slightly worse today. Creatinine 1.58. She underwent paracentesis this morning 5.7 L drained. She did not receive albumin to for the procedure. She has good urine output. Admits to abdominal discomfort. Vital signs are stable. General: The patient appeared well nourished and normally developed. HEENT: Head exam is unremarkable. Neck is without jugular venous distension. LUNGS: Lungs are clear to auscultation and percussion. Breath sounds decreased. HEART: Rate and Rhythm are regular. First and second heart sounds normal. No murmurs, rubs or gallops. ABDOMEN: Generalized tenderness. Soft. EXTREMITITES: 1+ edema. Objective - Vital Signs Vital signs: Vital Signs Temp 98.0 F 11/20/19 11:14 Pulse 80 11/20/19 11:14 Resp 18 11/20/19 11:14 BP 123/80 11/20/19 11:14 Pulse Ox 100 11/20/19 11:14 Intake & Output 11/19/19 11/20/19 11/20/19 18:59 06:59 18:59 Intake Total 1720 Output Total 1400 1 Balance -1400 1720 -1 Weight 90.718 kg Intake: Intake, IV Titration 250 Amount Vancomycin 1,000 mg In 250 Sodium Chloride 0.9% 250 ml @ 125 mls/hr IVPB Q16H JENNY Rx#:[id number] Oral 1470 Output: Urine 1400 Stool 1 Other: Voiding Method Indwelling Catheter Toilet Toilet # Voids 2 # Bowel Movements 1 - Labs CBC & Chem 7: 11/20/19 08:30 11/20/19 08:30 Labs: Abnormal Lab Results - Last 24 Hours (Table) 11/19/19 11/20/19 11/20/19 Range/Units 20:24 07:07 08:30 RBC 3.11 L (3.80-5.40) m/uL Hgb 11.3 L (11.4-16.0) gm/dL MCV 110.9 H (80.0-100.0) fL MCH 36.2 H (25.0-35.0) pg Plt Count 97 L (150-450) k/uL Macrocytosis Marked A Potassium (3.5-5.1) mmol/L Chloride (98-107) mmol/L Carbon Dioxide (22-30) mmol/L BUN (7-17) mg/dL Creatinine (0.52-1.04) mg/dL Glucose (74-99) mg/dL POC Glucose (mg/dL) 124 H 124 H (75-99) mg/dL Calcium (8.4-10.2) mg/dL Total Bilirubin (0.2-1.3) mg/dL AST (14-36) U/L Alkaline Phosphatase (38-126) U/L C-Reactive Protein (<10.0) mg/L Albumin (3.5-5.0) g/dL 11/20/19 11/20/19 Range/Units 08:30 11:15 RBC (3.80-5.40) m/uL Hgb (11.4-16.0) gm/dL MCV (80.0-100.0) fL MCH (25.0-35.0) pg Plt Count (150-450) k/uL Macrocytosis Potassium 3.2 L (3.5-5.1) mmol/L Chloride 110 H (98-107) mmol/L Carbon Dioxide 21 L (22-30) mmol/L BUN 26 H (7-17) mg/dL Creatinine 1.58 H (0.52-1.04) mg/dL Glucose 174 H (74-99) mg/dL POC Glucose (mg/dL) 157 H (75-99) mg/dL Calcium 8.1 L (8.4-10.2) mg/dL Total Bilirubin 3.0 H (0.2-1.3) mg/dL AST 70 H (14-36) U/L Alkaline Phosphatase 262 H (38-126) U/L C-Reactive Protein 28.2 H (<10.0) mg/L Albumin 2.4 L (3.5-5.0) g/dL Assessment and Plan Plan: Assessment: 1. Acute kidney injury secondary to ATN secondary to infection and hypotension. Hepatorenal cannot be completely ruled out. Renal function is slightly worse which is due to diuresis. Creatinine 1.5 today. Urinalysis benign. 2. Hepatocellular carcinoma. 3. Ascites status post paracentesis. 3 L drained on November 07 and 5.7 L drained today. 4. MRSA pneumonia maintained on IV vancomycin. Infectious disease following. 5. UTI with urine culture positive for enterococcus. 6. Mild metabolic acidosis secondary to acute kidney injury. 7. Chronic kidney disease stage III with baseline creatinine in the range of 1.1-1.3. 8. Hypokalemia secondary to diuresis. Plan: Maintain torsemide 20 mg once daily. Maintain spironolactone 25 mg twice daily. 25 g IV albumin now. Replace potassium. 60 mg once today. Repeat electrolytes in the morning.
[2019-11-20] MEDS: ALBUMIN HUMAN 25% 50 ML in EMPTY BAG 1 BAG IVPB SCH ×2 (14:04→15:11)
--- NOTE | 2019-11-20 16:19 | P.PN ---
Subjective Progress Note Date: 11/20/19 This is a 74-year-old female patient who presented with complaints of fever that started on Wednesday progressively increased over the past few days. Patient reports she's had some increased loose stools out of ostomy. Patient also complains of mild upper respiratory symptoms. Patient denies any nausea or vomiting. Patient denies cough or any open wounds Patient has a known past medical history of hepatocellular carcinoma. Additional medical history includes chronic ascites, nonalcoholic liver cirrhosis, diabetes mellitus, hypertension, liver, myocardial infarction, chronic renal disease chronic abdominal pain, diverticular disease with ileostomy, MRSA and VRE. Influenza negative. Leukocyte Estrace. Small amount of leukocyte Estrace noted to urine. Urine and blood cultures have been ordered. Chest x-ray completed showing no evidence for acute pulmonary disease. Abdominal ultrasound completed showing cirrhosis. There appears to be a focal 5 x 5 cm lesion posterior right liver lobe and possible 1.2 cm second lesion in the left liver lobe the setting cirrhosis HCC is not excluded. Mild to moderate abdominal pelvic ascites. Tenderness we'll scarring along the right upper quadrant. At this time blood, urine and lactic acid have been ordered stool for C. diff ordered. Infectious disease consulted. Dr. Figueroa also consulted for possible paracentesis. Patient denies any chest pain or shortness of breath. patient is having some nausea. She denies any urinary burning or frequency On 11/08/2019 patient was seen and examined on the medical floor she is alert and oriented 3 in no apparent distress there is no fever or chills no headache or dizziness no chest pain no shortness of breath no cough no nausea or vomiting no abdominal pain no diarrhea no burning was urination no frequency or urgency and no hematuria. On 11/09/2019 patient is alert and oriented 3. Patient remains on Levaquin and Rocephin for IV antibiotics. Last fever 100.6 on 11/08/2019. Patient denies chest pain or shortness of breath. Patient does have cough or sputum. Patient denies any nausea vomiting or diarrhea. Patient denies any urinary burning or frequency On 11/10/2018 patient is alert and oriented 3. Patient stopping elevated 100.2. Patient remains on IV antibiotic Levaquin and Rocephin per infectious disease. Sputum culture has been ordered. Patient denies any chest pain. Patient is having productive cough. Patient denies nausea vomiting or diarrhea. Patient denies any urinary burning or frequency On 11/11/2019 patient was seen and examined on the medical floor she is alert and oriented 3 in no apparent distress she is still complaining of cough with sputum production and complaining of abdominal pain otherwise she denies any complaints there is no fever or chills no headache or dizziness no chest pain no shortness of breath no nausea or vomiting no diarrhea and no urinary symptoms On 11/12/2019 patient is alert and oriented 3 she is complaining of cough with green sputum production, she is complaining of pain in the right upper quadrant , she is complaining of generalized weakness otherwise she denies any complaints there is no fever or chills no headache or dizziness no chest pain no nausea or vomiting no abdominal pain no diarrhea no burning was urination no frequency or urgency and no hematuria On 11/13/2019 patient is alert and oriented 3. Patient is still complaining of increased sputum production and cough. Patient overall states she does feel improved. Per infectious disease concerns for possible MRSA in sputum. Awaiting final sputum culture. Patient covered with vancomycin. Patient has been afebrile over the past 48 hours. Patient denies chest pain or shortness breath. Patient denies nausea vomiting or diarrhea. Patient denies any urinary burning or frequency On 11/14/2019 patient is alert and oriented 3. Sputum culture positive for MRSA. Patient maintained on Vanco. Patient still having increased sputum production. Patient has been afebrile. Patient denies chest pain. Patient having some increased swelling will DC fluids at this time. Creatinine improving. Dr. KRISTIN Lux covering for Dr. Dr. Lea until 11/20/2019 On 11/20/2019 patient is alert and oriented 3. Patient is status post paracent esis with 5.7 L removed. Nephrology services are following. Patient remains on vancomycin for MRSA in her sputum. Plans for discharge to [facility] upon discharge. Assessment patient having increased pain status post paracentesis. Patient denies chest pain or shortness breath. Patient denies nausea vomiting or diarrhea. Patient denies any urinary burning or frequency Objective - Vital Signs Vital signs: Vital Signs Temp 98.0 F 11/20/19 11:14 Pulse 80 11/20/19 11:14 Resp 18 11/20/19 11:14 BP 123/80 11/20/19 11:14 Pulse Ox 100 11/20/19 11:14 Intake & Output 11/19/19 11/20/19 11/20/19 18:59 06:59 18:59 Intake Total 1720 1050 Output Total 1400 1 Balance -1400 1720 1049 Weight 90.718 kg Intake: Intake, IV Titration 250 250 Amount Vancomycin 1,000 mg In 250 250 Sodium Chloride 0.9% 250 ml @ 125 mls/hr IVPB Q16H JENNY Rx#:[id number] Oral 1470 800 Output: Urine 1400 Stool 1 Other: Voiding Method Indwelling Catheter Toilet Toilet # Voids 2 2 # Bowel Movements 1 - Exam Head normocephalic Neck supple Lungs clear to auscultation bilaterally no wheezing or crackles Heart regular rate and rhythm S1-S2, no rub or gallop Abdomen is soft nontender nondistended positive bowel sounds no hepatosplenomegaly. Left lower quadrant ostomy Extremities no edema Neuro alert and orientated to 3 - Labs CBC & Chem 7: 11/20/19 08:30 11/20/19 08:30 Labs: Abnormal Lab Results - Last 24 Hours (Table) 11/19/19 11/20/19 11/20/19 Range/Units 20:24 07:07 08:30 RBC 3.11 L (3.80-5.40) m/uL Hgb 11.3 L (11.4-16.0) gm/dL MCV 110.9 H (80.0-100.0) fL MCH 36.2 H (25.0-35.0) pg Plt Count 97 L (150-450) k/uL Macrocytosis Marked A Potassium (3.5-5.1) mmol/L Chloride (98-107) mmol/L Carbon Dioxide (22-30) mmol/L BUN (7-17) mg/dL Creatinine (0.52-1.04) mg/dL Glucose (74-99) mg/dL POC Glucose (mg/dL) 124 H 124 H (75-99) mg/dL Calcium (8.4-10.2) mg/dL Total Bilirubin (0.2-1.3) mg/dL AST (14-36) U/L Alkaline Phosphatase (38-126) U/L C-Reactive Protein (<10.0) mg/L Albumin (3.5-5.0) g/dL 11/20/19 11/20/19 Range/Units 08:30 11:15 RBC (3.80-5.40) m/uL Hgb (11.4-16.0) gm/dL MCV (80.0-100.0) fL MCH (25.0-35.0) pg Plt Count (150-450) k/uL Macrocytosis Potassium 3.2 L (3.5-5.1) mmol/L Chloride 110 H (98-107) mmol/L Carbon Dioxide 21 L (22-30) mmol/L BUN 26 H (7-17) mg/dL Creatinine 1.58 H (0.52-1.04) mg/dL Glucose 174 H (74-99) mg/dL POC Glucose (mg/dL) 157 H (75-99) mg/dL Calcium 8.1 L (8.4-10.2) mg/dL Total Bilirubin 3.0 H (0.2-1.3) mg/dL AST 70 H (14-36) U/L Alkaline Phosphatase 262 H (38-126) U/L C-Reactive Protein 28.2 H (<10.0) mg/L Albumin 2.4 L (3.5-5.0) g/dL Assessment and Plan Assessment: 1. Febrile illness likely source left lower lobe pneumonia sputum positive for MRSA. Chest x-ray negative for acute process. Leukocyte esterase small amount in urine noted. Urine and blood cultures ordered. Lactic acid ordered. Influenza negative. C. diff negative. Infectious disease has been consulted. CT of abdomen and pelvis completed cannot pancreatitis involving the head of the pancreas with edema within the small bowel mesentery consider correlate with amylase and lipase. Amylase and lipase within normal limits. Adjacent thickening of the duodenum and stomach left lower normal pneumonia suspected. Patient remains on Rocephin and Levaquin per ID. Blood culture showing no growth. Urine culture pending paracentesis fluid pending. Sputum culture showing MRSA . Patient maintained on vancomycin. Infectious disease is following 2. Acute kidney injury. Creatinine slightly elevated at 1.41 and bun 34. We'll hold Aldactone at this time. Lasix changed to torsemide creatinine 1.52 and bun 26 will continue to monitor. Fluids DC'd. Nephrology services are following patient maintained on torsemide 20 mg daily and Aldactone 25 mg twice a day 3. Moderate amount of abdominal ascites. Abdominal ultrasound completed showing cirrhosis. This appears to be a focal by by 5 cm lesion posterior right liver lobe and possible 1.2 cm lesion of liver lobe the setting of cirrhosis, HCC is not excluded. Mild to moderate abdominal pelvic ascites. Tenderness wi th guarding on the right upper quadrant. Status post paracentesis 3 L. status post paracentesis on 11/20/2019. 5.7 L removed 4. History of hepatocellular carcinoma. Per GI services recent ultrasound of abdomen did show 5 cm lesion in the left lobe of the liver. However CAT scan done yesterday did not show any liver lesions. May need MRI of the liver to evaluate the liver lesion 5. History of nonalcoholic liver cirrhosis. Per GI services fluid analysis did not show any evidence of spontaneous bacterial peritonitis. 6. History of chronic kidney disease stage III 7. History of chronic elevated ammonia level secondary to hepatocellular carcinoma nonalcoholic liver cirrhosis. Patient maintained on lactulose 8. History of urine colonization with VRE 9. History of depression 10. History of pancytopenia secondary to known hepatocellular carcinoma and liver cirrhosis 11. History of recurring abdominal ascites 12. Diabetes mellitus type 2. Home meds resumed. A1c 5.6 13. History of depression and anxiety home meds resumed 14. Sores in mouth. Patient reports that she has follow-up appointment with oral surgeon in regards to this issue Magic mouthwash has been ordered 15. Hypokalemia replace per protocol. Nephrology services are following DVT prophylaxis SCDs due to chronic thrombocytopenia. GI prophylaxis Protonix Patient does have PICC line in place plans for discharge to [facility] when medically stable I performed an examination of the patient and discussed their management with the Nurse Practitioner. I have reviewed the Nurse Practitioner's notes and agree with the documented findings and plan of care
[2019-11-20 17:25] LABS: Glucose,Whole Blood 122 mg/dL (75-99)
[2019-11-20 19:57] LABS: Glucose,Whole Blood 150 mg/dL (75-99)
--- NOTE | 2019-11-21 05:05 | PN ---
PROGRESS NOTE DATE OF SERVICE: 11/20/2019 REASON FOR FOLLOWUP: MRSA pneumonia. INTERVAL HISTORY: The patient is currently afebrile. Patient is breathing comfortably. The patient denies having any chest pain or shortness of breath. She did have a cough, however, less productive now. No nausea, no vomiting. Abdominal pain has slightly improved after paracentesis and no diarrhea. PHYSICAL EXAMINATION: On examination, blood pressure 95/49 with a pulse of 74, temperature 99.1. She is 99% on room air. General description is an elderly female up in the bed in no distress. RESPIRATORY SYSTEM: Unlabored breathing, decreased breath sounds at the bases. No wheeze. HEART: S1, S2. Regular rate and rhythm. ABDOMEN: Soft, no tenderness. LABS: Hemoglobin is 11.3, white count 5.9, BUN of 26, creatinine 1.58. DIAGNOSTIC IMPRESSION AND PLAN: Patient with MRSA pneumonia for which the patient received about 9 days of IV vancomycin. To continue for another week to finish a course of therapy and monitor clinical course closely. Continue supportive care. MMODL / IJN: [id number] /
[2019-11-21 05:22] VITALS: TEMP 98.3
[2019-11-21] MEDS: MORPHINE SULFATE 4 MG/ML SYRINGE IV PRN ×2 (05:31→10:26)
[2019-11-21 07:04] LABS: Glucose,Whole Blood 87 mg/dL (75-99)
[2019-11-21] MEDS ORDERED: VANCOMYCIN TROUGH DUE 1 EACH MISC MISCELLANE ONE (10:00)
[2019-11-21 10:29] LABS: Basophils # (A) 0.1 k/uL (0-0.2); Basophils % (A) 1 %; Eosinophils # (A) 0.2 k/uL (0-0.7); Eosinophils % (A) 3 %; HCT 36.9 % (34.0-46.0); HGB 11.6 gm/dL (11.4-16.0); Hypochromasia Slight; Lymphocytes # (A) 1.5 k/uL (1.0-4.8); Lymphocytes % (A) 21 %; MCH 35.1 pg (25.0-35.0); MCHC 31.5 g/dL (31.0-37.0); MCV 111.4 fL (80.0-100.0); Macrocytosis Marked; Mean Platelet Volume 9.5; Monocytes # (A) 0.4 k/uL (0-1.0); Monocytes % (A) 6 %; Neutrophils # (A) 4.7 k/uL (1.3-7.7); Neutrophils % (A) 67 %; RBC 3.31 m/uL (3.80-5.40); RDW 14.7 % (11.5-15.5)
[2019-11-21 10:30] LABS: Platelet Count 90 k/uL (150-450)
[2019-11-21] MEDS: INSULIN REGULAR 100 UNIT/ML VIAL SQ SCH ×2 (10:30→12:55)
[2019-11-21] MEDS: INSULIN NPH 300 UNIT/3 ML VIAL SQ SCH ×2 (10:31→12:54)
[2019-11-21] MEDS: ISOSORBIDE MONONITRATE ER 30 MG TAB.ER.24H PO SCH (10:33)
[2019-11-21] MEDS: DICYCLOMINE 10 MG CAP PO SCH (10:33)
[2019-11-21] MEDS: PANTOPRAZOLE 40 MG TABLET PO SCH (10:33)
[2019-11-21] MEDS: SPIRONOLACTONE 25 MG TAB PO SCH (10:33)
[2019-11-21] MEDS: CHOLECALCIFEROL 1,000 UNIT TAB PO SCH (10:33)
[2019-11-21] MEDS: LACTULOSE 20 GM/30 ML CUP PO SCH (10:33)
[2019-11-21] MEDS: SUCRALFATE 1 GM TAB PO SCH ×2 (10:33→13:16)
[2019-11-21] MEDS: FERROUS SULFATE 325 MG TAB PO SCH (10:33)
[2019-11-21] MEDS: MAG HYDROX/AL HYDROX/SIMETH 30 ML, diphenhydrAMINE ELIXIR 75 MG, LIDOCAINE VISCOUS 30 ML PO SCH ×3 (10:33)
[2019-11-21] MEDS: METOPROLOL TARTRATE 12.5 MG TAB PO SCH (10:36)
[2019-11-21] MEDS: MORPHINE SULFATE ER 15 MG TABLET PO SCH (10:36)
[2019-11-21] MEDS: buPROPion SR 150 MG TABLET.ER PO SCH (10:39)
[2019-11-21] MEDS: VANCOMYCIN 1,000 MG in SODIUM CHLORIDE 0.9% 250 ML IVPB SCH (10:41)
[2019-11-21 10:43] LABS: Calcium 8.1 mg/dL (8.4-10.2); Magnesium 1.5 mg/dL (1.6-2.3)
[2019-11-21] MEDS ORDERED: MAGNESIUM OXIDE 400 MG TAB PO SCH (11:15)
--- NOTE | 2019-11-21 11:16 | P.PN ---
Subjective Patient is seen in follow-up for acute kidney injury. Renal function is fairly stable. She underwent paracentesis yesterday with 5.7 L drained. She has good urine output. Admits to abdominal discomfort. Vital signs are stable. General: The patient appeared well nourished and normally developed. HEENT: Head exam is unremarkable. Neck is without jugular venous distension. LUNGS: Lungs are clear to auscultation and percussion. Breath sounds decreased. HEART: Rate and Rhythm are regular. First and second heart sounds normal. No murmurs, rubs or gallops. ABDOMEN: Generalized tenderness. Soft. EXTREMITITES: 1+ edema. Objective - Vital Signs Vital signs: Vital Signs Temp 98.3 F 11/21/19 05:21 Pulse 74 11/21/19 05:21 Resp 18 11/21/19 05:21 BP 96/55 11/21/19 05:21 Pulse Ox 95 11/21/19 05:21 Intake & Output 11/20/19 11/21/19 11/21/19 18:59 06:59 18:59 Intake Total 1050 2230 Output Total 1 1 1 Balance 1049 2229 -1 Weight 90.718 kg Intake: Intake, IV Titration 250 250 Amount Vancomycin 1,000 mg In 250 250 Sodium Chloride 0.9% 250 ml @ 125 mls/hr IVPB Q16H [facility] Rx#:[id number] Oral 800 1980 Output: Stool 1 1 1 Other: Voiding Method Toilet Toilet Toilet # Voids 2 2 - Labs CBC & Chem 7: 11/21/19 10:15 11/21/19 10:15 Labs: Abnormal Lab Results - Last 24 Hours (Table) 11/20/19 11/20/19 11/20/19 Range/Units 11:15 17:19 19:55 RBC (3.80-5.40) m/uL MCV (80.0-100.0) fL MCH (25.0-35.0) pg Plt Count (150-450) k/uL Macrocytosis Chloride (98-107) mmol/L BUN (7-17) mg/dL Creatinine (0.52-1.04) mg/dL Glucose (74-99) mg/dL POC Glucose (mg/dL) 157 H 122 H 150 H (75-99) mg/dL Calcium (8.4-10.2) mg/dL Magnesium (1.6-2.3) mg/dL 11/21/19 11/21/19 Range/Units 10:15 10:15 RBC 3.31 L (3.80-5.40) m/uL MCV 111.4 H (80.0-100.0) fL MCH 35.1 H (25.0-35.0) pg Plt Count 90 L (150-450) k/uL Macrocytosis Marked A Chloride 108 H (98-107) mmol/L BUN 25 H (7-17) mg/dL Creatinine 1.43 H (0.52-1.04) mg/dL Glucose 193 H (74-99) mg/dL POC Glucose (mg/dL) (75-99) mg/dL Calcium 8.1 L (8.4-10.2) mg/dL Magnesium 1.5 L (1.6-2.3) mg/dL Assessment and Plan Plan: Assessment: 1. Acute kidney injury secondary to ATN secondary to infection and hypotension. Hepatorenal cannot be completely ruled out. Renal function stable. Creatinine 1.43 today. Urinalysis benign. 2. Hepatocellular carcinoma. 3. Ascites status post paracentesis. 3 L drained on November 07 and 5.7 L drained 11/20/2019. 4. MRSA pneumonia maintained on IV vancomycin. Infectious disease following. 5. UTI with urine culture positive for enterococcus. 6. Mild metabolic acidosis secondary to acute kidney injury. Better. 7. Chronic kidney disease stage III with baseline creatinine in the range of 1.1-1.3. 8. Hypokalemia secondary to diuresis. Status post replacement. Better. 9. Hypomagnesemia secondary to diuresis. Plan: Maintain torsemide 20 mg once daily. Maintain spironolactone 25 mg twice daily. Replace magnesium. 2 g IV today. I will also add oral magnesium oxide. Anticipate discharge soon. Follow up outpatient in 1-2 weeks.
[2019-11-21 12:13] LABS: Glucose,Whole Blood 215 mg/dL (75-99)
[2019-11-21 12:33] VITALS: BP 133/73; PULSE 69; RESP 16
[2019-11-21] MEDS: MAGNESIUM SULFATE-D5W PMX 1 GM in DEXTROSE/WATER 1 100ML.BAG IVPB SCH ×2 (12:54→14:48)
[2019-11-21] MEDS: TORSEMIDE 20 MG TAB PO SCH (12:54)
--- NOTE | 2019-11-21 15:01 | P.DS ---
Providers Date of admission: 11/06/19 17:54 Expected date of discharge: 11/21/19 Attending physician: Artemio Lea Consults: 11/07/19 09:58 Consult Physician Routine Consulting Provider: Jaylene Esparza Consult Reason/Comments: febrile Do you want consulting provider notified?: Yes 11/10/19 13:58 Consult Physician Routine Consulting Provider: Chris Webb Consult Reason/Comments: pneumonia Do you want consulting provider notified?: Yes 11/16/19 10:41 Consult Physician Routine Consulting Provider: Clemente Ortiz Consult Reason/Comments: epigastric pain Do you want consulting provider notified?: Yes 11/16/19 12:05 Consult Physician Routine Consulting Provider: Macey Urrutia Consult Reason/Comments: clearance for Picc line Do you want consulting provider notified?: Yes Primary care physician: Artemio Leonora [facility] Course: Discharge diagnosis 1. Febrile illness likely source left lower lobe pneumonia sputum positive for MRSA. Chest x-ray negative for acute process. Leukocyte esterase small amount in urine noted. Urine and blood cultures ordered. Lactic acid ordered. Influenza negative. C. diff negative. Infectious disease has been consulted. CT of abdomen and pelvis completed cannot pancreatitis involving the head of the pancreas with edema within the small bowel mesentery consider correlate with amylase and lipase. Amylase and lipase within normal limits. Adjacent thickening of the duodenum and stomach left lower normal pneumonia suspected. Patient remains on Rocephin and Levaquin per ID. Blood culture showing no growth. Urine culture pending paracentesis fluid pending. Sputum culture showing MRSA . Patient maintained on vancomycin. Infectious disease is following. She has been cleared for discharge from infectious disease. Patient will be discharged on vancomycin IV PICC line in place. Continue for 1 week follow-up with infectious disease services 2. Acute kidney injury. Creatinine slightly elevated at 1.41 and bun 34. We'll hold Aldactone at this time. Lasix changed to torsemide creatinine 1.52 and bun 26 will continue to monitor. Fluids DC'd. Nephrology services are following patient maintained on torsemide 20 mg daily and Aldactone 25 mg twice a day. She has been cleared for discharge from nephrology standpoint. Follow- up in 2 weeks 3. Moderate amount of abdominal ascites. Abdominal ultrasound completed showing cirrhosis. This appears to be a focal by by 5 cm lesion posterior right liver lobe and possible 1.2 cm lesion of liver lobe the setting of cirrhosis, HCC is not excluded. Mild to moderate abdominal pelvic ascites. Tenderness with guarding on the right upper quadrant. Status post paracentesis 3 L. status post paracentesis on 11/20/2019. 5.7 L removed 4. History of hepatocellular carcinoma. Per GI services recent ultrasound of abdomen did show 5 cm lesion in the left lobe of the liver. However CAT scan done yesterday did not show any liver lesions. May need MRI of the liver to evaluate the liver lesion 5. History of nonalcoholic liver cirrhosis. Per GI services fluid analysis did not show any evidence of spontaneous bacterial peritonitis. 6. History of chronic kidney disease stage III 7. History of chronic elevated ammonia level secondary to hepatocellular carcinoma nonalcoholic liver cirrhosis. Patient maintained on lactulose 8. History of urine colonization with VRE 9. History of depression 10. History of pancytopenia secondary to known hepatocellular carcinoma and liver cirrhosis 11. History of recurring abdominal ascites 12. Diabetes mellitus type 2. Home meds resumed. A1c 5.6 13. History of depression and anxiety home meds resumed 14. Sores in mouth. Patient reports that she has follow-up appointment with oral surgeon in regards to this issue Magic mouthwash has been ordered 15. Hypokalemia replace per protocol. Nephrology services are following Hospital course This is a 74-year-old female patient who presented with complaints of fever that started on Wednesday progressively increased over the past few days. Patient reports she's had some increased loose stools out of ostomy. Patient also complains of mild upper respiratory symptoms. Patient denies any nausea or vomiting. Patient denies cough or any open wounds Patient has a known past medical history of hepatocellular carcinoma. Additional medical history includes chronic ascites, nonalcoholic liver cirrhosis, diabetes mellitus, hypertension, liver, myocardial infarction, chronic renal disease chronic abdominal pain, diverticular disease with ileostomy, MRSA and VRE. Influenza negative. Leukocyte Estrace. Small amount of leukocyte Estrace noted to urine. Urine and blood cultures have been ordered. Chest x-ray completed showing no evidence for acute pulmonary disease. Abdominal ultrasound completed showing cirrhosis. There appears to be a focal 5 x 5 cm lesion posterior right liver lo be and possible 1.2 cm second lesion in the left liver lobe the setting cirrhosis HCC is not excluded. Mild to moderate abdominal pelvic ascites. Tenderness we'll scarring along the right upper quadrant. At this time blood, urine and lactic acid have been ordered stool for C. diff ordered. Infectious disease consulted. Dr. Figueroa also consulted for possible paracentesis. Patient denies any chest pain or shortness of breath. patient is having some nausea. She denies any urinary burning or frequency On 11/08/2019 patient was seen and examined on the medical floor she is alert and oriented 3 in no apparent distress there is no fever or chills no headache or dizziness no chest pain no shortness of breath no cough no nausea or vomiting no abdominal pain no diarrhea no burning was urination no frequency or urgency and no hematuria. On 11/09/2019 patient is alert and oriented 3. Patient remains on Levaquin and Rocephin for IV antibiotics. Last fever 100.6 on 11/08/2019. Patient denies chest pain or shortness of breath. Patient does have cough or sputum. Patient denies any nausea vomiting or diarrhea. Patient denies any urinary burning or frequency On 11/10/2018 patient is alert and oriented 3. Patient stopping elevated 100.2. Patient remains on IV antibiotic Levaquin and Rocephin per infectious disease. Sputum culture has been ordered. Patient denies any chest pain. Patient is having productive cough. Patient denies nausea vomiting or diarrhea. Patient denies any urinary burning or frequency On 11/11/2019 patient was seen and examined on the medical floor she is alert and oriented 3 in no apparent distress she is still complaining of cough with sputum production and complaining of abdominal pain otherwise she denies any complaints there is no fever or chills no headache or dizziness no chest pain no shortness of breath no nausea or vomiting no diarrhea and no urinary symptoms On 11/12/2019 patient is alert and oriented 3 she is complaining of cough with green sputum production, she is complaining of pain in the right upper quadrant , she is complaining of generalized weakness otherwise she denies any complaints there is no fever or chills no headache or dizziness no chest pain no nausea or vomiting no abdominal pain no diarrhea no burning was urination no frequency or urgency and no hematuria On 11/13/2019 patient is alert and oriented 3. Patient is still complaining of increased sputum production and cough. Patient overall states she does feel improved. Per infectious disease concerns for possible MRSA in sputum. Awaiting final sputum culture. Patient covered with vancomycin. Patient has been afebrile over the past 48 hours. Patient denies chest pain or shortness breath. Patient denies nausea vomiting or diarrhea. Patient denies any urinary burning or frequency On 11/14/2019 patient is alert and oriented 3. Sputum culture positive for MRSA. Patient maintained on Vanco. Patient still having increased sputum production. Patient has been afebrile. Patient denies chest pain. Patient having some increased swelling will DC fluids at this time. Creatinine improving. Dr. KRISTIN Lux covering for Dr. Dr. Lea until 11/20/2019 On 11/20/2019 patient is alert and oriented 3. Patient is status post paracentesis with 5.7 L removed. Nephrology services are following. Patient remains on vancomycin for MRSA in her sputum. Plans [facility] discharge. Assessment patient having increased pain status post paracentesis. Patient denies chest pain or shortness breath. Patient denies nausea vomiting or diarrhea. Patient denies any urinary burning or frequency On 11/21/2019 patient is alert and oriented 3. Patient has been cleared for discharge from consulting providers. Patient will be discharged to [facility] facility for IV antibiotics. Patient to continue vancomycin for 1 week per infectious disease recommendation. Patient to follow-up with ID and nephrology services for further management. At this time patient denies chest pain or shortness breath. Patient denies nausea vomiting or diarrhea. Patient denies any urinary burning or frequency I performed an examination of the patient and discussed their management with the Nurse Practitioner. I have reviewed the Nurse Practitioner's notes and agree with the documented findings and plan of care Patient Condition at Discharge: Stable Plan - Discharge Summary Discharge Rx Participant: No New Discharge Prescriptions: New Spironolactone [Aldactone] 25 mg PO BID tab Torsemide [Demadex] 20 mg PO DAILY tab Mag Hydrox/Al Hydrox/Simeth [Maalox] 30 ml PO TID cup Vancomycin 1,000 mg IVPB Q16H 7 Days #7 vial Continue Sucralfate [Carafate] 1 gm PO ACHS Omeprazole [PriLOSEC] 20 mg PO DAILY Insulin Regular, Human [NovoLIN R] 10 unit SQ AC-TID Cholecalciferol [Vitamin D3 (25 Mcg = 1000 Iu)] 2,000 unit PO DAILY Ferrous Sulfate [Iron (65 MG Elemental)] 325 mg PO BID Morphine Sulfate [Ms Contin] 15 mg PO BID buPROPion HCL [Wellbutrin SR] 150 mg PO DAILY clonazePAM [KlonoPIN] 0.5 mg PO BID PRN PRN Reason: Anxiety Lactulose [Cephulac] 30 gm PO TID Isosorbide Mononitrate ER [Imdur] 30 mg PO DAILY 30 Days #30 tab.er.24h Dicyclomine [Bentyl] 10 mg PO DAILY Insulin NPH Human Isophane [NovoLIN N] 18 unit SQ AC-BID Metoprolol Tartrate [Lopressor] 6.25 mg PO DAILY tab Discontinued Spironolactone [Aldactone] 50 mg PO DAILY 30 Days #30 tab Furosemide [Lasix] 40 mg PO DAILY 30 Days #30 tablet Discharge Medication List Omeprazole [PriLOSEC] 20 mg PO DAILY 10/23/18 [History] Sucralfate [Carafate] 1 gm PO ACHS 10/23/18 [History] Insulin Regular, Human [NovoLIN R] 10 unit SQ AC-TID 10/24/18 [History] Cholecalciferol [Vitamin D3 (25 Mcg = 1000 Iu)] 2,000 unit PO DAILY 01/16/19 [ History] Ferrous Sulfate [Iron (65 MG Elemental)] 325 mg PO BID 01/31/19 [History] Morphine Sulfate [Ms Contin] 15 mg PO BID 05/15/19 [History] buPROPion HCL [Wellbutrin SR] 150 mg PO DAILY 06/12/19 [History] clonazePAM [KlonoPIN] 0.5 mg PO BID PRN 06/12/19 [History] Lactulose [Cephulac] 30 gm PO TID 07/22/19 [History] Isosorbide Mononitrate ER [Imdur] 30 mg PO DAILY 30 Days #30 tab.er.24h 07/26/19 [Rx] Dicyclomine [Bentyl] 10 mg PO DAILY 10/02/19 [History] Insulin NPH Human Isophane [NovoLIN N] 18 unit SQ AC-BID 10/02/19 [History] Metoprolol Tartrate [Lopressor] 6.25 mg PO DAILY tab 10/04/19 [Rx] Mag Hydrox/Al Hydrox/Simeth [Maalox] 30 ml PO TID cup 11/21/19 [Rx] Spironolactone [Aldactone] 25 mg PO BID tab 11/21/19 [Rx] Torsemide [Demadex] 20 mg PO DAILY tab 11/21/19 [Rx] Vancomycin 1,000 mg IVPB Q16H 7 Days #7 vial 11/21/19 [Rx] Follow up Appointment(s)/Referral(s): [facility], [NON-STAFF] - 1-2 Days Artemio Lea MD [Primary Care Provider] - 11/24/19 10:15 am (`) Jaylene Esparza MD [STAFF PHYSICIAN] - 1 Week Patient Instructions/Handouts: Acute Kidney Injury (DC), Urinary Tract Infection in Women (DC), Ascites (DC) Activity/Diet/Wound Care/Special Instructions: Activity as tolerated Diet heart healthy, consistent carb diabetic Discharge Disposition: TRANSFER TO SNF/ECF
--- NOTE | 2019-11-21 16:39 | PN ---
PROGRESS NOTE DATE OF SERVICE: 11/21/2019 REASON FOR FOLLOWUP: MRSA pneumonia. INTERVAL HISTORY: The patient is currently afebrile. She has been breathing comfortably. She did have slight discomfort in the left upper quadrant area. PHYSICAL EXAMINATION: Blood pressure 133/73 with a pulse of 59, temperature 98. General description is an elderly female up in the chair in no distress. RESPIRATORY SYSTEM: Unlabored breathing. Clear to auscultation anteriorly. HEART: S1, S2. Regular rate and rhythm. ABDOMEN: Soft. No tenderness. LABS: Hemoglobin 11.6, white count 7.0. Creatinine 1.43. DIAGNOSTIC IMPRESSION AND PLAN: Patient with methicillin-resistant Staphylococcus aeruginosa pneumonia. Received about 10 days of IV vancomycin; to continue for another 5 to 7 days to finish her course of therapy. Continue monitor closely and continue with supportive care. ADAMARIS / DREAN: [id number] /
== END 2019-11-21 16:30 | DRG 871 ==
LOC: EC 12:20 → 5NMEDONC 17:54
PROVIDERS: ADMIT Internal Medicine; ATTEND Internal Medicine
PROC: 0W9G3ZZ Drainage of Peritoneal Cavity, Percutaneous Approach (ICD-10-PCS; 2019-11-07)
PROC: 02HV33Z Insertion of Infusion Device into Superior Vena Cava, Percutaneous Approach (ICD-10-PCS; principal; 2019-11-16 10:55)
PROC: 0W9G3ZZ Drainage of Peritoneal Cavity, Percutaneous Approach (ICD-10-PCS; 2019-11-20)
DX: A41.02 Sepsis due to Methicillin resistant Staphylococcus aureus (principal); J15.212 Pneumonia due to Methicillin resistant Staphylococcus aureus; N17.0 Acute kidney failure with tubular necrosis; C22.0 Liver cell carcinoma; D61.818 Other pancytopenia; N39.0 Urinary tract infection, site not specified; K76.6 Portal hypertension; E87.2 Acidosis; R18.8 Other ascites; R65.20 Severe sepsis without septic shock; I12.9 Hypertensive chronic kidney disease with stage 1 through stage 4 chronic kidney disease, or unspecified chronic kidney disease; B95.2 Enterococcus as the cause of diseases classified elsewhere; E11.22 Type 2 diabetes mellitus with diabetic chronic kidney disease; E83.42 Hypomagnesemia; T50.2X5A Adverse effect of carbonic-anhydrase inhibitors, benzothiadiazides and other diuretics, initial encounter; N18.3 Chronic kidney disease, stage 3 (moderate); K74.69 Other cirrhosis of liver; E87.6 Hypokalemia; F32.9 Major depressive disorder, single episode, unspecified; F41.9 Anxiety disorder, unspecified; I25.10 Atherosclerotic heart disease of native coronary artery without angina pectoris; I25.2 Old myocardial infarction; J20.9 Acute bronchitis, unspecified; Z93.2 Ileostomy status; Z92.21 Personal history of antineoplastic chemotherapy; Z87.11 Personal history of peptic ulcer disease; Z87.440 Personal history of urinary (tract) infections; Z90.49 Acquired absence of other specified parts of digestive tract; K57.30 Diverticulosis of large intestine without perforation or abscess without bleeding; K72.10 Chronic hepatic failure without coma; Z79.4 Long term (current) use of insulin; Z79.899 Other long term (current) drug therapy; Z82.49 Family history of ischemic heart disease and other diseases of the circulatory system; Z87.891 Personal history of nicotine dependence; Z88.0 Allergy status to penicillin; Z90.710 Acquired absence of both cervix and uterus; Z88.5 Allergy status to narcotic agent; Z88.8 Allergy status to other drugs, medicaments and biological substances; K13.79 Other lesions of oral mucosa
CPT/HCPCS: 36415; 36573; 49083; 71045; 71046; 74176; 76700; 76705; 80048; 80053; 80202; 81001; 82042; 82105; 82140; 82150; 82565; 83036; 83605; 83690; 83735; 84157; 84443; 85025; 85610; 85730; 86140; 87040; 87070; 87075; 87077; 87086; 87186; 87205; 87324; 87502; 89050; 93005; 96361; 96374; 96375; 99285

== ENCOUNTER 2019-11-25 13:10 | Inpatient (IN) | payer MEDICARE, OTHER ==
[2019-11-25] MEDS ORDERED: SODIUM CHLORIDE 0.9% 1,000 ML IV ONE (13:12)
--- NOTE | 2019-11-25 13:33 | ED ---
General Adult HPI - General Stated complaint: Altered mental status Time Seen by Provider: 11/25/19 13:11 Source: patient, EMS, RN notes reviewed, old records reviewed Mode of arrival: EMS Limitations: altered mental status - History of Present Illness Initial comments: 74-year-old female presented from the halfway with worsening confusion. Patient has reported history of hepatic carcinoma. She is currently on lactulose. She was unable to take her dose this morning secondary to confusion and noncompliance. She was transported by EMS, stable vitals. She is alert but not oriented, and not following commands time my evaluation. Medical record will be reviewed. - Related Data Home Medications Medication Instructions Recorded Confirmed Omeprazole [PriLOSEC] 20 mg PO DAILY 10/23/18 11/25/19 Sucralfate [Carafate] 1 gm PO ACHS 10/23/18 11/25/19 Insulin Regular, Human [NovoLIN R] 10 unit SQ AC-TID 10/24/18 11/25/19 Cholecalciferol [Vitamin D3 (25 2,000 unit PO DAILY 01/16/19 11/25/19 Mcg = 1000 Iu)] Ferrous Sulfate [Iron (65 MG 325 mg PO BID 01/31/19 11/25/19 Elemental)] Morphine Sulfate [Ms Contin] 15 mg PO BID 05/15/19 11/25/19 buPROPion HCL [Wellbutrin SR] 150 mg PO DAILY 06/12/19 11/25/19 clonazePAM [KlonoPIN] 0.5 mg PO BID@0800,2000 06/12/19 11/25/19 Lactulose [Cephulac] 26 gm PO DAILY 07/22/19 11/25/19 Dicyclomine [Bentyl] 10 mg PO DAILY 10/02/19 11/25/19 Insulin NPH Human Isophane 18 unit SQ AC-BID 10/02/19 11/25/19 [NovoLIN N] Acetaminophen Tab [Tylenol Tab] 650 mg PO Q8H PRN 11/25/19 11/25/19 Isosorbide Mononitrate ER [Imdur] 30 mg PO DAILY@0800 11/25/19 11/25/19 Spironolactone [Aldactone] 25 mg PO BID@0800,1600 11/25/19 11/25/19 Previous Rx's Medication Instructions Recorded Metoprolol Tartrate [Lopressor] 6.25 mg PO DAILY tab 10/04/19 Mag Hydrox/Al Hydrox/Simeth 30 ml PO TID cup 11/21/19 [Maalox] Torsemide [Demadex] 20 mg PO DAILY tab 11/21/19 Vancomycin 1,000 mg IVPB Q16H 7 Days #7 vial 11/21/19 Allergies Allergy/AdvReac Type Severity Reaction Status Date / Time amlodipine Allergy Rash/Hives Verified 11/25/19 13:40 oxycodone Allergy Rash/Hives Verified 11/25/19 13:40 Penicillins Allergy Rash/Hives Verified 11/25/19 13:40 hydromorphone [From Dilaudid] AdvReac Mild tactile Verified 11/25/19 13:40 disturbance GREG Inhibitors AdvReac Cough Verified 11/25/19 13:40 sodium dodecyclbenzene Allergy Rash/Hives Uncoded 11/06/19 13:17 sulfonate Review of Systems ROS Statement: Those systems with pertinent positive or pertinent negative responses have been documented in the HPI. ROS Other: All systems not noted in ROS Statement are negative. Past Medical History Past Medical History: Cancer, Diabetes Mellitus, Hypertension, Liver Disease, Myocardial Infarction ([place]), Renal Disease Additional Past Medical History / Comment(s): Hepatocellular liver cancer with chemo immobilization-last time being 2017, ascities with paracentesis's may 2019, nonalcoholic liver cirrhosis, chronic pancytopenia, chronic elevated am monia levels, hepatic encephalopathy, chronic elevated LFTs, chronic abdominal pain, stomach ulcer, diverticular disease with ileostomy, IDDM type II, iron anemia, CKD stage III, nonsustained vtach, UTI, high ammonia levels Last Myocardial Infarction Date:: unk History of Any Multi-Drug Resistant Organisms: MRSA, VRE Date of last positivie culture/infection: 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 Past Anesthesia/Blood Transfusion Reactions: No Reported Reaction Past Psychological History: Anxiety, Depression Smoking Status: Former smoker Past Alcohol Use History: None Reported Past Drug Use History: None Reported - Past Family History Mother History Unknown: Yes Family Medical History: Congestive Heart Failure (CHF) Additional Family Medical History / Comment(s): Mother is 94 yrs old. Father Family Medical History: Chest Pain / Angina Additional Family Medical History / Comment(s): Father is . General Exam Limitations: altered mental status General appearance: lethargic Head exam: Present: atraumatic, normocephalic Eye exam: Present: normal appearance, PERRL ENT exam: Present: mucous membranes dry Neck exam: Present: normal inspection. Absent: tenderness, meningismus Respiratory exam: Present: normal lung sounds bilaterally. Absent: respiratory distress, wheezes Cardiovascular Exam: Present: normal rhythm, tachycardia GI/Abdominal exam: Present: soft. Absent: distended, tenderness Extremities exam: Present: normal inspection, normal capillary refill. Absent: pedal edema Neurological exam: Present: alert. Absent: oriented X3, motor sensory deficit Psychiatric exam: Present: normal affect, normal mood Skin exam: Present: warm, dry, intact. Absent: cyanosis, diaphoretic Course Vital Signs 11/25/19 11/25/19 13:19 14:48 Temperature 98.0 F Pulse Rate 107 H 60 Respiratory 16 16 Rate Blood Pressure 148/87 123/70 O2 Sat by Pulse 98 99 Oximetry EKG Findings - EKG Comments: EKG Findings:: Sinus tach with occasional PVCs, left axis deviation, right bundle branch block, LVH, rate of 102, WV interval 166, QRS duration 124, QTC 523, no ST segment elevation, history of right bundle-branch block Medical Decision Making - Medical Decision Making 74-year-old female presenting for worsening confusion, concern for hyperammonemia. Patient has hepatic carcinoma history as well as nonalcoholic liver disease. Patient somewhat lethargic on initial evaluation, she is maintaining her airway, she will make eye contact and follow some simple commands but history is not possible with this patient. She has had CT which is negative for intracranial hemorrhage or mass effect. Chest x-ray shows some mild pulmonary venous congestion. She has a normal pulse, stable hemoglobin she has a creatinine of 1.5 to pneumonia of 52 which is mildly elevated. She's given rectal lactulose and IV hydration. I discussed case with the primary care physician states this is an acute change in her mental status she will be admitted for further evaluation and treatment. - Lab Data Result diagrams: 11/25/19 13:25 11/25/19 13:25 Lab Results 11/25/19 11/25/19 11/25/19 Range/Units 13:25 13:25 13:25 WBC 6.8 (3.8-10.6) k/uL RBC 3.75 L (3.80-5.40) m/uL Hgb 13.5 (11.4-16.0) gm/dL Hct 41.3 (34.0-46.0) % MCV 110.0 H (80.0-100.0) fL MCH 36.0 H (25.0-35.0) pg MCHC 32.7 (31.0-37.0) g/dL RDW 14.5 (11.5-15.5) % Plt Count 95 L (150-450) k/uL Neutrophils % 75 % Lymphocytes % 15 % Monocytes % 6 % Eosinophils % 2 % Basophils % 0 % Neutrophils # 5.1 (1.3-7.7) k/uL Lymphocytes # 1.0 (1.0-4.8) k/uL Monocytes # 0.4 (0-1.0) k/uL Eosinophils # 0.1 (0-0.7) k/uL Basophils # 0.0 (0-0.2) k/uL Hypochromasia Slight Macrocytosis Marked A PT (9.0-12.0) sec INR (<1.2) APTT (22.0-30.0) sec Sodium 139 (137-145) mmol/L Potassium 4.5 (3.5-5.1) mmol/L Chloride 112 H (98-107) mmol/L Carbon Dioxide 20 L (22-30) mmol/L Anion Gap 7 mmol/L BUN 19 H (7-17) mg/dL Creatinine 1.12 H (0.52-1.04) mg/dL Est GFR (CKD-EPI)AfAm 57 (>60 ml/min/1.73 sqM) Est GFR (CKD-EPI)NonAf 49 (>60 ml/min/1.73 sqM) Glucose 92 (74-99) mg/dL Calcium 9.0 (8.4-10.2) mg/dL Total Bilirubin 4.2 H (0.2-1.3) mg/dL AST 84 H (14-36) U/L ALT 38 H (4-34) U/L Alkaline Phosphatase 323 H (38-126) U/L Ammonia 52 H (<30) umol/L Total Protein 7.5 (6.3-8.2) g/dL Albumin 3.1 L (3.5-5.0) g/dL Urine Color Urine Appearance (Clear) Urine pH (5.0-8.0) Ur Specific Bryant (1.001-1.035) Urine Protein (Negative) Urine Glucose (UA) (Negative) Urine Ketones (Negative) Urine Blood (Negative) Urine Nitrite (Negative) Urine Bilirubin (Negative) Urine Urobilinogen (<2.0) mg/dL Ur Leukocyte Esterase (Negative) Urine RBC (0-5) /hpf Urine WBC (0-5) /hpf Ur Squamous Epith Cells (0-4) /hpf 11/25/19 11/25/19 Range/Units 13:25 13:25 WBC (3.8-10.6) k/uL RBC (3.80-5.40) m/uL Hgb (11.4-16.0) gm/dL Hct (34.0-46.0) % MCV (80.0-100.0) fL MCH (25.0-35.0) pg MCHC (31.0-37.0) g/dL RDW (11.5-15.5) % Plt Count (150-450) k/uL Neutrophils % % Lymphocytes % % Monocytes % % Eosinophils % % Basophils % % Neutrophils # (1.3-7.7) k/uL Lymphocytes # (1.0-4.8) k/uL Monocytes # (0-1.0) k/uL Eosinophils # (0-0.7) k/uL Basophils # (0-0.2) k/uL Hypochromasia Macrocytosis PT 13.1 H (9.0-12.0) sec INR 1.3 H (<1.2) APTT 23.5 (22.0-30.0) sec Sodium (137-145) mmol/L Potassium (3.5-5.1) mmol/L Chloride (98-107) mmol/L Carbon Dioxide (22-30) mmol/L Anion Gap mmol/L BUN (7-17) mg/dL Creatinine (0.52-1.04) mg/dL Est GFR (CKD-EPI)AfAm (>60 ml/min/1.73 sqM) Est GFR (CKD-EPI)NonAf (>60 ml/min/1.73 sqM) Glucose (74-99) mg/dL Calcium (8.4-10.2) mg/dL Total Bilirubin (0.2-1.3) mg/dL AST (14-36) U/L ALT (4-34) U/L Alkaline Phosphatase (38-126) U/L Ammonia (<30) umol/L Total Protein (6.3-8.2) g/dL Albumin (3.5-5.0) g/dL Urine Color Yellow Urine Appearance Clear (Clear) Urine pH 5.5 (5.0-8.0) Ur Specific Bryant 1.010 (1.001-1.035) Urine Protein Negative (Negative) Urine Glucose (UA) Negative (Negative) Urine Ketones Negative (Negative) Urine Blood Small H (Negative) Urine Nitrite Negative (Negative) Urine Bilirubin Negative (Negative) Urine Urobilinogen <2.0 (<2.0) mg/dL Ur Leukocyte Esterase Negative (Negative) Urine RBC 3 (0-5) /hpf Urine WBC 1 (0-5) /hpf Ur Squamous Epith Cells <1 (0-4) /hpf Disposition Clinical Impression: History of liver cancer, Dehydration, Hyperbilirubinemia, Chronic liver disease, Hepatic encephalopathy Disposition: ADMITTED IP TO THIS [facility] Condition: Stable Is patient prescribed a controlled substance at d/c from ED?: No Referrals: Artemio Lea MD [Primary Care Provider] - 1-2 days Decision to Admit Reason: Admit from EC Decision Date: 11/25/19 Decision Time: 14:58
--- NOTE | 2019-11-25 14:08 | CT ---
EXAMINATION TYPE: CT brain wo con DATE OF EXAM: 11/25/2019 COMPARISON: 06/12/2019 HISTORY: Altered mental status CT DLP: 1099.4 mGycm Automated exposure control for dose reduction was used. There is cerebral cortical atrophy. There is no mass effect nor midline shift. There is no sign of in tracranial hemorrhage. Calvarium is intact. Skull base is intact. IMPRESSION: Cerebral atrophy. No acute intracranial abnormality. No change.
[2019-11-25 14:14] LABS: Basophils % (A) 0 %; Eosinophils # (A) 0.1 k/uL (0-0.7); Eosinophils % (A) 2 %; HCT 41.3 % (34.0-46.0); HGB 13.5 gm/dL (11.4-16.0); Hypochromasia Slight; Lymphocytes % (A) 15 %; MCHC 32.7 g/dL (31.0-37.0); Macrocytosis Marked; Mean Platelet Volume 9.7; Monocytes # (A) 0.4 k/uL (0-1.0); Monocytes % (A) 6 %; Neutrophils # (A) 5.1 k/uL (1.3-7.7); Neutrophils % (A) 75 %; RBC 3.75 m/uL (3.80-5.40); RDW 14.5 % (11.5-15.5); WBC 6.8 k/uL (3.8-10.6)
[2019-11-25 14:16] LABS: Appearance,Urine Clear (Clear); Bilirubin,Urine Negative (Negative); Blood,Urine Small (Negative); Color,Urine Yellow; Glucose,Urine (UA) Negative (Negative); Ketones,Urine Negative (Negative); Leukocyte Esterase,Urine Negative (Negative); Nitrite,Urine Negative (Negative); PH, Urine 5.5 (5.0-8.0); Platelet Count 95 k/uL (150-450); Protein,Urine Negative (Negative); RBC,Urine 3 /hpf (0-5); Squamous Epithelial Cell,Urine <1 /hpf (0-4); Urobilinogen,Urine <2.0 mg/dL (<2.0); WBC,Urine 1 /hpf (0-5)
[2019-11-25 14:25] LABS: Albumin 3.1 g/dL (3.5-5.0); Potassium 4.5 mmol/L (3.5-5.1); Total Bilirubin 4.2 mg/dL (0.2-1.3); Total Protein 7.5 g/dL (6.3-8.2)
[2019-11-25 14:27] LABS: INR 1.3 (<1.2); Partial Thromboplastin Time 23.5 sec (22.0-30.0); Prothrombin Time 13.1 sec (9.0-12.0)
[2019-11-25] MEDS ORDERED: LACTULOSE 20 GM/30 ML CUP PO ONE (14:39)
[2019-11-25] MEDS ORDERED: SODIUM CHLORIDE 0.9% 500 ML 500 ML IV ONE (14:40)
[2019-11-25] MEDS ORDERED: LACTULOSE 200 GM/300 ML (FROM 1/2 GAL JUG) RECTAL ONE (14:45)
--- NOTE | 2019-11-25 14:50 | XR ---
EXAMINATION TYPE: XR chest 1V portable DATE OF EXAM: 11/25/2019 COMPARISON: 11/12/2019 HISTORY: Altered mental status TECHNIQUE: FINDINGS: There is some pulmonary vascular congestion. There are chest leads. Costophrenic angles are clear. Thoracic aorta is atheromatous. IMPRESSION: There is increased pulmonary congestion compared to last exam that could be mild heart fa ilure.
[2019-11-25] MEDS ORDERED: NALOXONE 0.4 MG/ML 1 ML VIAL IV PRN (14:52)
[2019-11-25 16:57] LABS: Glucose,Whole Blood 90 mg/dL (75-99)
[2019-11-25] MEDS: INSULIN ASPART (NovoLOG) 100 UNIT/ML VIAL SQ SCH ×2 (17:34→21:03)
[2019-11-25 20:30] LABS: Glucose,Whole Blood 93 mg/dL (75-99)
[2019-11-26 06:08] LABS: Basophils % (A) 0 %; Eosinophils # (A) 0.1 k/uL (0-0.7); Eosinophils % (A) 2 %; HCT 35.6 % (34.0-46.0); HGB 11.5 gm/dL (11.4-16.0); Lymphocytes # (A) 0.8 k/uL (1.0-4.8); Lymphocytes % (A) 15 %; MCH 35.5 pg (25.0-35.0); MCHC 32.3 g/dL (31.0-37.0); MCV 109.8 fL (80.0-100.0); Macrocytosis Marked; Mean Platelet Volume 9.7; Monocytes # (A) 0.3 k/uL (0-1.0); Monocytes % (A) 6 %; Neutrophils # (A) 3.9 k/uL (1.3-7.7); Neutrophils % (A) 74 %; RBC 3.24 m/uL (3.80-5.40); RDW 14.7 % (11.5-15.5); WBC 5.2 k/uL (3.8-10.6)
[2019-11-26 06:11] LABS: Albumin 2.5 g/dL (3.5-5.0); Calcium 8.5 mg/dL (8.4-10.2); Potassium 4.2 mmol/L (3.5-5.1); Total Protein 6.3 g/dL (6.3-8.2)
[2019-11-26 06:16] LABS: Platelet Count 67 k/uL (150-450)
[2019-11-26 06:58] LABS: Glucose,Whole Blood 72 mg/dL (75-99)
[2019-11-26] MEDS: INSULIN ASPART (NovoLOG) 100 UNIT/ML VIAL SQ SCH ×4 (08:09→20:33)
[2019-11-26 12:09] LABS: Glucose,Whole Blood 169 mg/dL (75-99)
[2019-11-26] MEDS ORDERED: VANCOMYCIN IV PER PHARMACY 1 EACH MISC MISCELLANE PRN (14:12)
[2019-11-26] MEDS: MORPHINE SULFATE 2 MG/ML SYRINGE IVP PRN ×3 (14:29→22:29)
[2019-11-26] MEDS ORDERED: clonazePAM 0.5 MG TAB PO PRN (14:40)
--- NOTE | 2019-11-26 14:48 | P.HPIM ---
History of Present Illness H&P Date: 11/26/19 Charlene Keenan is a 74-year-old female with known history of liver cirrhosis and liver cancer who was recently discharged from [facility] to the long term. Patient did well for a short period of time then she was having mental status changes and decreased consciousness, she was unable to take her oral medications, I was contacted by the long term in that regard and I asked for the patient to be transferred back to emergency room. In the emergency room patient was unresponsive her ammonia level was elevated at 52 liver enzymes were elevated BUN and creatinine were slightly elevated patient received a lactulose enema in the emergency room and was admitted to medical floor for further evaluation and treatment. This morning patient was alert and oriented 3 in no apparent distress she was complaining of back pain otherwise she denies any complaints, her ammonia level is down to less then 9, liver enzymes are still elevated but better than yesterday, BUN and creatinine are still slightly elevated at 20 and 1.08. During the last admission patient was diagnosed with MRSA pneumonia she was discharged to the long term on IV vancomycin, at this time consultation for pharmacy to resume dosing vancomycin and consultation for infectious disease Dr. Esparza were initiated. Past Medical History Past Medical History: Cancer, Diabetes Mellitus, Hypertension, Liver Disease, Myocardial Infarction ([place]), Renal Disease Additional Past Medical History / Comment(s): Hepatocellular liver cancer with chemo immobilization-last time being 2017, ascities with paracentesis's may 2019, nonalcoholic liver cirrhosis, chronic pancytopenia, chronic elevated ammonia levels, hepatic encephalopathy, chronic elevated LFTs, chronic abdominal pain, stomach ulcer, diverticular disease with ileostomy, IDDM type II, iron anemia, CKD stage III, nonsustained vtach, UTI, high ammonia levels Last Myocardial Infarction Date:: unk History of Any Multi-Drug Resistant Organisms: MRSA, VRE Date of last positivie culture/infection: 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 Past Anesthesia/Blood Transfusion Reactions: No Reported Reaction Past Psychological History: Anxiety, Depression Additional Psychological History / Comment(s): Reformed smoker. . Retired. No experience. No animal exposures Smoking Status: Former smoker Past Alcohol Use History: None Reported Additional Past Alcohol Use History / Comment(s): started smoking 1962 and quit 1965 Past Drug Use History: None Reported - Past Family History Mother History Unknown: Yes Family Medical History: Congestive Heart Failure (CHF) Additional Family Medical History / Comment(s): Mother is 94 yrs old. Father Family Medical History: Chest Pain / Angina Additional Family Medical History / Comment(s): Father is . Medications and Allergies Home Medications Medication Instructions Recorded Confirmed Type Omeprazole [PriLOSEC] 20 mg PO DAILY 10/23/18 11/25/19 History Sucralfate [Carafate] 1 gm PO ACHS 10/23/18 11/25/19 History Insulin Regular, Human [NovoLIN R] 10 unit SQ AC-TID 10/24/18 11/25/19 History Cholecalciferol [Vitamin D3 (25 2,000 unit PO DAILY 01/16/19 11/25/19 History Mcg = 1000 Iu)] Ferrous Sulfate [Iron (65 MG 325 mg PO BID 01/31/19 11/25/19 History Elemental)] Morphine Sulfate [Ms Contin] 15 mg PO BID 05/15/19 11/25/19 History buPROPion HCL [Wellbutrin SR] 150 mg PO DAILY 06/12/19 11/25/19 History clonazePAM [KlonoPIN] 0.5 mg PO BID@0800,2000 06/12/19 11/25/19 History Lactulose [Cephulac] 26 gm PO DAILY 07/22/19 11/25/19 History Dicyclomine [Bentyl] 10 mg PO DAILY 10/02/19 11/25/19 History Insulin NPH Human Isophane 18 unit SQ AC-BID 10/02/19 11/25/19 History [NovoLIN N] Metoprolol Tartrate [Lopressor] 6.25 mg PO DAILY tab 10/04/19 11/25/19 Rx Mag Hydrox/Al Hydrox/Simeth 30 ml PO TID cup 11/21/19 11/25/19 Rx [Maalox] Torsemide [Demadex] 20 mg PO DAILY tab 11/21/19 11/25/19 Rx Vancomycin 1,000 mg IVPB Q16H 7 Days #7 vial 11/21/19 11/25/19 Rx Acetaminophen Tab [Tylenol Tab] 650 mg PO Q8H PRN 11/25/19 11/25/19 History Isosorbide Mononitrate ER [Imdur] 30 mg PO DAILY@0800 11/25/19 11/25/19 History Spironolactone [Aldactone] 25 mg PO BID@0800,1600 11/25/19 11/25/19 History Allergies Allergy/AdvReac Type Severity Reaction Status Date / Time amlodipine Allergy Rash/Hives Verified 11/25/19 13:40 oxycodone Allergy Rash/Hives Verified 11/25/19 13:40 Penicillins Allergy Rash/Hives Verified 11/25/19 13:40 hydromorphone [From Dilaudid] AdvReac Mild tactile Verified 11/25/19 13:40 disturbance GREG Inhibitors AdvReac Cough Verified 11/25/19 13:40 sodium dodecyclbenzene Allergy Rash/Hives Uncoded 11/06/19 13:17 sulfonate Physical Exam Vitals: Vital Signs Temp Pulse Pulse Resp BP BP Pulse Ox 11/26/19 07:45 18 11/26/19 07:00 98.3 F 80 18 132/90 99 11/26/19 02:25 97.8 F 79 16 116/63 97 11/25/19 19:41 98.0 F 75 16 102/57 99 11/25/19 16:00 16 11/25/19 15:58 96.2 F L 79 16 136/85 100 11/25/19 14:48 60 16 123/70 99 Intake and Output 11/25/19 11/26/19 11/26/19 22:59 06:59 14:59 Intake Total 750 Output Total 900 1520 Balance -900 750 -1520 Intake: Intake, IV Titration 750 Amount Sodium Chloride 0.9% 1, 750 000 ml @ 75 mls/hr IV . [id number] ONE Rx#:[id number] Output: Stool 300 1520 Emesis 600 Other: Voiding Method Bedside Commode Bedside Commode Diaper Diaper # Voids 3 2 # Bowel Movements 3 1 Weight 81.647 kg At this time patient is alert and oriented 3 answering questions appropriately HEENT head normocephalic and atraumatic Neck is supple no JVD no goiter no lymphadenopathy Chest exam reveals a few scattered crackles no wheezing Cardiac exam reveals regular heart sounds no gallops no murmurs Abdomen is soft nontender no organomegaly slightly distended with ascites with normal bowel sounds Extremity exam reveals no edema no cyanosis or clubbing Neurological examination reveals no gross focal deficit at this time Results CBC & Chem 7: 11/26/19 05:45 11/26/19 05:45 Labs: Abnormal Lab Results - Last 24 Hours (Table) 11/25/19 11/25/19 11/25/19 Range/Units 13:25 13:25 13:25 RBC (3.80-5.40) m/uL MCV (80.0-100.0) fL MCH (25.0-35.0) pg Plt Count (150-450) k/uL Lymphocytes # (1.0-4.8) k/uL Macrocytosis PT 13.1 H (9.0-12.0) sec INR 1.3 H (<1.2) Chloride 112 H (98-107) mmol/L Carbon Dioxide 20 L (22-30) mmol/L BUN 19 H (7-17) mg/dL Creatinine 1.12 H (0.52-1.04) mg/dL POC Glucose (mg/dL) (75-99) mg/dL Total Bilirubin 4.2 H (0.2-1.3) mg/dL AST 84 H (14-36) U/L ALT 38 H (4-34) U/L Alkaline Phosphatase 323 H (38-126) U/L Ammonia 52 H (<30) umol/L Albumin 3.1 L (3.5-5.0) g/dL 11/26/19 11/26/19 11/26/19 Range/Units 05:45 05:45 06:47 RBC 3.24 L (3.80-5.40) m/uL MCV 109.8 H (80.0-100.0) fL MCH 35.5 H (25.0-35.0) pg Plt Count 67 L (150-450) k/uL Lymphocytes # 0.8 L (1.0-4.8) k/uL Macrocytosis Marked A PT (9.0-12.0) sec INR (<1.2) Chloride 113 H (98-107) mmol/L Carbon Dioxide (22-30) mmol/L BUN 20 H (7-17) mg/dL Creatinine 1.08 H (0.52-1.04) mg/dL POC Glucose (mg/dL) 72 L (75-99) mg/dL Total Bilirubin 5.0 H (0.2-1.3) mg/dL AST 71 H (14-36) U/L ALT (4-34) U/L Alkaline Phosphatase 245 H (38-126) U/L Ammonia (<30) umol/L Albumin 2.5 L (3.5-5.0) g/dL 11/26/19 Range/Units 11:58 RBC (3.80-5.40) m/uL MCV (80.0-100.0) fL MCH (25.0-35.0) pg Plt Count (150-450) k/uL Lymphocytes # (1.0-4.8) k/uL Macrocytosis PT (9.0-12.0) sec INR (<1.2) Chloride (98-107) mmol/L Carbon Dioxide (22-30) mmol/L BUN (7-17) mg/dL Creatinine (0.52-1.04) mg/dL POC Glucose (mg/dL) 169 H (75-99) mg/dL Total Bilirubin (0.2-1.3) mg/dL AST (14-36) U/L ALT (4-34) U/L Alkaline Phosphatase (38-126) U/L Ammonia (<30) umol/L Albumin (3.5-5.0) g/dL Assessment and Plan Plan: #1 altered mental status, multifactorial related to pain medications and liver cirrhosis, improved significantly since yesterday with holding pain medications and giving lactulose enema. At this time oral lactulose was restarted, patient is complaining of severe pain she will be restarted on morphine as she is ALLERGIC to hydromorphone and oxycodone, will monitor mental function closely. #2 underlying history of liver cirrhosis, with recurrent ascites, maintained on frequent paracentesis, oral lactulose, oral diuretics and oral beta blockers. #3 underlying history of liver cancer, seen in the past by oncology Will consult oncology again to reassess #4 underlying history of chronic back pain, requiring narcotic use #5 underlying history of anxiety disorder and depression, maintained on bupropion and Klonopin #6 recent history of pneumonia was methicillin-resistant Staphylococcus aureus, restart IV vancomycin, consult infectious disease. 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 #10 for DVT prophylaxis we will use SCD stockings and avoid anticoagulation due to thrombocytopenia #11 for GI prophylaxis patient is on Protonix Medication and labs were reviewed and reordered Consultation for gastroenterology, infectious disease, and hematology oncology were initiated Prognosis is poor due to significant advanced liver illness and multiple comorbidities
[2019-11-26] MEDS: VANCOMYCIN 1,500 MG in SODIUM CHLORIDE 0.9% 250 ML IVPB SCH (15:04)
[2019-11-26] MEDS: SPIRONOLACTONE 25 MG TAB PO SCH (15:07)
[2019-11-26] MEDS: LACTULOSE 20 GM/30 ML CUP PO SCH ×2 (15:07→20:45)
[2019-11-26] MEDS ORDERED: MAG HYDROX/AL HYDROX/SIMETH 30 ML CUP PO PRN (16:00)
[2019-11-26 17:25] LABS: Glucose,Whole Blood 157 mg/dL (75-99)
[2019-11-26] MEDS: SUCRALFATE 1 GM TAB PO SCH ×2 (17:38→20:43)
[2019-11-26] MEDS: INSULIN NPH 300 UNIT/3 ML VIAL SQ SCH (17:39)
[2019-11-26] MEDS: INSULIN REGULAR 100 UNIT/ML VIAL SQ SCH (17:40)
[2019-11-26] MEDS ORDERED: clonazePAM 0.5 MG TAB PO SCH (20:00)
[2019-11-26 20:31] LABS: Glucose,Whole Blood 103 mg/dL (75-99)
[2019-11-26] MEDS: MORPHINE SULFATE ER 15 MG TABLET PO SCH (20:42)
[2019-11-26] MEDS: FERROUS SULFATE 325 MG TAB PO SCH (20:43)
[2019-11-27 01:11] LABS: Glucose,Whole Blood 59 mg/dL (75-99)
[2019-11-27 01:27] LABS: Glucose,Whole Blood 77 mg/dL (75-99)
[2019-11-27 01:42] LABS: Glucose,Whole Blood 103 mg/dL (75-99)
[2019-11-27] MEDS: VANCOMYCIN 1,500 MG in SODIUM CHLORIDE 0.9% 250 ML IVPB SCH ×2 (02:51→15:58)
[2019-11-27] MEDS: MORPHINE SULFATE 2 MG/ML SYRINGE IVP PRN ×3 (02:55→22:04)
[2019-11-27 07:23] LABS: Glucose,Whole Blood 84 mg/dL (75-99)
[2019-11-27] MEDS: INSULIN ASPART (NovoLOG) 100 UNIT/ML VIAL SQ SCH ×4 (07:28→20:25)
[2019-11-27] MEDS: LACTULOSE 20 GM/30 ML CUP PO SCH ×3 (07:57→20:27)
[2019-11-27] MEDS: SPIRONOLACTONE 25 MG TAB PO SCH ×2 (07:58→15:58)
[2019-11-27] MEDS: ISOSORBIDE MONONITRATE ER 30 MG TAB.ER.24H PO SCH (07:58)
[2019-11-27] MEDS: SUCRALFATE 1 GM TAB PO SCH ×4 (07:58→20:26)
[2019-11-27] MEDS: INSULIN REGULAR 100 UNIT/ML VIAL SQ SCH ×3 (07:58→17:04)
[2019-11-27] MEDS: FERROUS SULFATE 325 MG TAB PO SCH ×2 (07:58→20:25)
[2019-11-27] MEDS: INSULIN NPH 300 UNIT/3 ML VIAL SQ SCH ×2 (07:58→17:04)
[2019-11-27] MEDS: METOPROLOL TARTRATE 12.5 MG TAB PO SCH (07:58)
[2019-11-27] MEDS: CHOLECALCIFEROL 1,000 UNIT TAB PO SCH (07:59)
[2019-11-27] MEDS: MORPHINE SULFATE ER 15 MG TABLET PO SCH ×2 (07:59→20:26)
[2019-11-27] MEDS: TORSEMIDE 20 MG TAB PO SCH (08:00)
[2019-11-27] MEDS: DICYCLOMINE 10 MG CAP PO SCH (08:00)
[2019-11-27] MEDS: buPROPion SR 150 MG TABLET.ER PO SCH (08:00)
[2019-11-27] MEDS: PANTOPRAZOLE 40 MG TABLET PO SCH (08:00)
[2019-11-27 08:12] LABS: Albumin 2.1 g/dL (3.5-5.0); Calcium 7.9 mg/dL (8.4-10.2); Potassium 4.1 mmol/L (3.5-5.1); Total Bilirubin 3.3 mg/dL (0.2-1.3); Total Protein 5.7 g/dL (6.3-8.2)
[2019-11-27 08:13] LABS: Basophils % (A) 0 %; Eosinophils # (A) 0.3 k/uL (0-0.7); Eosinophils % (A) 6 %; HCT 32.4 % (34.0-46.0); HGB 10.1 gm/dL (11.4-16.0); Hypochromasia Slight; Lymphocytes # (A) 0.9 k/uL (1.0-4.8); Lymphocytes % (A) 20 %; MCH 34.5 pg (25.0-35.0); MCHC 31.3 g/dL (31.0-37.0); MCV 110.4 fL (80.0-100.0); Macrocytosis Marked; Monocytes # (A) 0.4 k/uL (0-1.0); Monocytes % (A) 9 %; Neutrophils # (A) 2.8 k/uL (1.3-7.7); Neutrophils % (A) 62 %; RBC 2.93 m/uL (3.80-5.40); RDW 14.5 % (11.5-15.5); WBC 4.5 k/uL (3.8-10.6)
[2019-11-27 08:19] LABS: Platelet Count 65 k/uL (150-450)
--- NOTE | 2019-11-27 10:32 | P.PN ---
Subjective Progress Note Date: 11/27/19 Charlene Keenan is a 74-year-old female with known history of liver cirrhosis and liver cancer who was recently discharged from [facility] to the custodial. Patient did well for a short period of time then she was having mental status changes and decreased consciousness, she was unable to take her oral medications, I was contacted by the custodial in that regard and I asked for the patient to be transferred back to emergency room. In the emergency room patient was unresponsive her ammonia level was elevated at 52 liver enzymes were elevated BUN and creatinine were slightly elevated patient received a lactulose enema in the emergency room and was admitted to medical floor for further evaluation and treatment. This morning patient was alert and oriented 3 in no apparent distress she was complaining of back pain otherwise she denies any complaints, her ammonia level is down to less then 9, liver enzymes are still elevated but better than yesterday, BUN and creatinine are still slightly elevated at 20 and 1.08. During the last admission patient was diagnosed with MRSA pneumonia she was discharged to the custodial on IV vancomycin, at this time consultation for pharmacy to resume dosing vancomycin and consultation for infectious disease Dr. Esparza were initiated. On 11/27/2019 patient is alert and oriented 3. Having increased abdominal pain. Awaiting consult for further management of chronic conditions. Patient remains on IV vancomycin. Vitals have remained stable. Home medications resumed. At this time patient denies chest pain or shortness breath. Patient is having some abdominal cramping. Patient denies any nausea or vomiting. Patient denies any urinary burning or frequency. Objective - Vital Signs Vital signs: Vital Signs Temp 98.4 F 11/27/19 07:00 Pulse 67 11/27/19 07:00 Resp 12 11/27/19 07:00 BP 112/63 11/27/19 07:00 Pulse Ox 98 11/27/19 07:00 Intake & Output 11/26/19 11/27/19 11/27/19 18:59 06:59 18:59 Output Total 1520 2400 Balance -1520 -2400 Output: Stool 1520 2400 Other: Voiding Method Bedside Commode Bedside Commode Diaper Diaper # Voids 2 # Bowel Movements 1 - Exam At this time patient is alert and oriented 3 answering questions appropriately HEENT head normocephalic and atraumatic Neck is supple no JVD no goiter no lymphadenopathy Chest exam reveals a few scattered crackles no wheezing Cardiac exam reveals regular heart sounds no gallops no murmurs Abdomen is soft nontender no organomegaly slightly distended with ascites with normal bowel sounds Extremity exam reveals no edema no cyanosis or clubbing Neurological examination reveals no gross focal deficit at this time - Labs CBC & Chem 7: 11/27/19 06:59 11/27/19 06:59 Labs: Abnormal Lab Results - Last 24 Hours (Table) 11/26/19 11/26/19 11/26/19 Range/Units 05:45 11:58 17:14 RBC 3.24 L (3.80-5.40) m/uL Hgb (11.4-16.0) gm/dL Hct (34.0-46.0) % MCV 109.8 H (80.0-100.0) fL MCH 35.5 H (25.0-35.0) pg Plt Count 67 L (150-450) k/uL Lymphocytes # 0.8 L (1.0-4.8) k/uL Macrocytosis Marked A Chloride (98-107) mmol/L Carbon Dioxide (22-30) mmol/L BUN (7-17) mg/dL Creatinine (0.52-1.04) mg/dL POC Glucose (mg/dL) 169 H 157 H (75-99) mg/dL Calcium (8.4-10.2) mg/dL Total Bilirubin (0.2-1.3) mg/dL AST (14-36) U/L ALT (4-34) U/L Alkaline Phosphatase (38-126) U/L Total Protein (6.3-8.2) g/dL Albumin (3.5-5.0) g/dL 11/26/19 11/27/19 11/27/19 Range/Units 20:29 00:59 01:30 RBC (3.80-5.40) m/uL Hgb (11.4-16.0) gm/dL Hct (34.0-46.0) % MCV (80.0-100.0) fL MCH (25.0-35.0) pg Plt Count (150-450) k/uL Lymphocytes # (1.0-4.8) k/uL Macrocytosis Chloride (98-107) mmol/L Carbon Dioxide (22-30) mmol/L BUN (7-17) mg/dL Creatinine (0.52-1.04) mg/dL POC Glucose (mg/dL) 103 H 59 L 103 H (75-99) mg/dL Calcium (8.4-10.2) mg/dL Total Bilirubin (0.2-1.3) mg/dL AST (14-36) U/L ALT (4-34) U/L Alkaline Phosphatase (38-126) U/L Total Protein (6.3-8.2) g/dL Albumin (3.5-5.0) g/dL 11/27/19 11/27/19 Range/Units 06:59 06:59 RBC 2.93 L (3.80-5.40) m/uL Hgb 10.1 L (11.4-16.0) gm/dL Hct 32.4 L (34.0-46.0) % MCV 110.4 H (80.0-100.0) fL MCH (25.0-35.0) pg Plt Count 65 L (150-450) k/uL Lymphocytes # 0.9 L (1.0-4.8) k/uL Macrocytosis Marked A Chloride 114 H (98-107) mmol/L Carbon Dioxide 18 L (22-30) mmol/L BUN 20 H (7-17) mg/dL Creatinine 1.11 H (0.52-1.04) mg/dL POC Glucose (mg/dL) (75-99) mg/dL Calcium 7.9 L (8.4-10.2) mg/dL Total Bilirubin 3.3 H (0.2-1.3) mg/dL AST 83 H (14-36) U/L ALT 38 H (4-34) U/L Alkaline Phosphatase 218 H (38-126) U/L Total Protein 5.7 L (6.3-8.2) g/dL Albumin 2.1 L (3.5-5.0) g/dL Assessment and Plan Assessment: #1 altered mental status, multifactorial related to pain medications and liver cirrhosis, improved significantly since yesterday with holding pain medications and giving lactulose enema. At this time oral lactulose was restarted, patient is complaining of severe pain she will be restarted on morphine as she is ALLERGIC to hydromorphone and oxycodone, will monitor mental function closely. #2 underlying history of liver cirrhosis, with recurrent ascites, maintained on frequent paracentesis, oral lactulose, oral diuretics and oral beta blockers. #3 underlying history of liver cancer, seen in the past by oncology Will consult oncology again to reassess #4 underlying history of chronic back pain, requiring narcotic use #5 underlying history of anxiety disorder and depression, maintained on bupropion and Klonopin #6 recent history of pneumonia was methicillin-resistant Staphylococcus aureus, restart IV vancomycin, consult infectious disease. 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 DVT prophylaxis we will use SCD stockings and avoid anticoagulation due to thrombocytopenia GI prophylaxis patient is on Protonix Infectious disease, oncology and GI services consulted I performed an examination of the patient and discussed their management with the Nurse Practitioner. I have reviewed the Nurse Practitioner's notes and agree with the documented findings and plan of care
[2019-11-27 11:51] LABS: Glucose,Whole Blood 109 mg/dL (75-99)
--- NOTE | 2019-11-27 16:50 | P.CONS ---
History of Present Illness - Reason for Consult Consult date: 11/27/19 HCC Requesting physician: Artemio Lea - Chief Complaint AMS - History of Present Illness Pt brought to hospital from [facility] for AMS secondary to hepatic encephalopathy. Pt states she was recently released from the hospital. Pt has not followed up with Oncology as an outpatient, she has been hospitalized 4 times since our last consult in Jul 2019. She admits to lack of clarity of recent events, currently she is not having fever, oral irritation, appetite is poor, SOB on exertion, weak, no palpitations, abd pain is now in the center of her abd, just above the naval, sharp, intermittent, no aggravating factor, she has increased ostomy output that is very dark, denies dysuria. Malignancy history: Ms. Keenan was initially introduced to our service in 11/01, she was going to transfer her care more locally. She has a known history of HCC, diagnosed [facility]. 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 04/18/2013 there was attempt to resect liver mass by Dr. Desai, but excision of mass was not able to be performed. Between 2012--2014 she was treated with chemoembolization (per patient) at [place]. She was seen and treated by Dr. Varela during this time. 2014 seen at [facility] briefly, then again in 2016, she was seen Dr. Greg Bear in November 2016. 02/2016 had ablation liver mass. 06/2016 evaluated at [facility] by Gastroenterology when a repeat liver biopsy was performed. Resulted with well-differentiated Hepatocellular Carcinoma. 10/2016 chemoembolization to left hepatic lobe with Interventional Radiology. 08/2018 evaluated at [facility], right hepatic lobe biopsy was performed, well differentiated HCC and new 4.3cm right hepatic mass, underwent chemoembolization in August 2018. She followed with Medical Oncologist Dr. Julio. She has had multiple paracenteses with cytology negative. She has had multiple office appointments made but has not kept them due to recurrent hospital admissions. She has not followed up with any recommendations due to frequent hospitalizations. Review of Systems 14 point ROS is negative except as stated in HPI Past Medical History Past Medical History: Cancer, Diabetes Mellitus, Hypertension, Liver Disease, Myocardial Infarction (OR), Renal Disease Additional Past Medical History / Comment(s): Hepatocellular liver cancer with chemo immobilization-last time being 2017, ascities with paracentesis's may 2019, nonalcoholic liver cirrhosis, chronic pancytopenia, chronic elevated ammonia levels, hepatic encephalopathy, chronic elevated LFTs, chronic abdominal pain, stomach ulcer, diverticular disease with ileostomy, IDDM type II, iron anemia, CKD stage III, nonsustained vtach, UTI, high ammonia levels Last Myocardial Infarction Date:: unk History of Any Multi-Drug Resistant Organisms: MRSA, 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 Past Anesthesia/Blood Transfusion Reactions: No Reported Reaction Past Psychological History: Anxiety, Depression Additional Psychological History / Comment(s): Reformed smoker. . Retired. No experience. No animal exposures Smoking Status: Former smoker Past Alcohol Use History: None Reported Additional Past Alcohol Use History / Comment(s): started smoking 1962 and quit 1965 Past Drug Use History: None Reported - Past Family History Mother History Unknown: Yes Family Medical History: Congestive Heart Failure (CHF) Additional Family Medical History / Comment(s): Mother is 94 yrs old. Father Family Medical History: Chest Pain / Angina Additional Family Medical History / Comment(s): Father is . Medications and Allergies Home Medications Medication Instructions Recorded Confirmed Type Omeprazole [PriLOSEC] 20 mg PO DAILY 10/23/18 11/25/19 History Sucralfate [Carafate] 1 gm PO ACHS 10/23/18 11/25/19 History Insulin Regular, Human [NovoLIN R] 10 unit SQ AC-TID 10/24/18 11/25/19 History Cholecalciferol [Vitamin D3 (25 2,000 unit PO DAILY 01/16/19 11/25/19 History Mcg = 1000 Iu)] Ferrous Sulfate [Iron (65 MG 325 mg PO BID 01/31/19 11/25/19 History Elemental)] Morphine Sulfate [Ms Contin] 15 mg PO BID 05/15/19 11/25/19 History buPROPion HCL [Wellbutrin SR] 150 mg PO DAILY 06/12/19 11/25/19 History clonazePAM [KlonoPIN] 0.5 mg PO BID@0800,2000 06/12/19 11/25/19 History Lactulose [Cephulac] 26 gm PO DAILY 07/22/19 11/25/19 History Dicyclomine [Bentyl] 10 mg PO DAILY 10/02/19 11/25/19 History Insulin NPH Human Isophane 18 unit SQ AC-BID 10/02/19 11/25/19 History [NovoLIN N] Metoprolol Tartrate [Lopressor] 6.25 mg PO DAILY tab 10/04/19 11/25/19 Rx Mag Hydrox/Al Hydrox/Simeth 30 ml PO TID cup 11/21/19 11/25/19 Rx [Maalox] Torsemide [Demadex] 20 mg PO DAILY tab 11/21/19 11/25/19 Rx Vancomycin 1,000 mg IVPB Q16H 7 Days #7 vial 11/21/19 11/25/19 Rx Acetaminophen Tab [Tylenol Tab] 650 mg PO Q8H PRN 11/25/19 11/25/19 History Isosorbide Mononitrate ER [Imdur] 30 mg PO DAILY@0800 11/25/19 11/25/19 History Spironolactone [Aldactone] 25 mg PO BID@0800,1600 11/25/19 11/25/19 History Allergies Allergy/AdvReac Type Severity Reaction Status Date / Time amlodipine Allergy Rash/Hives Verified 11/25/19 13:40 oxycodone Allergy Rash/Hives Verified 11/25/19 13:40 Penicillins Allergy Rash/Hives Verified 11/25/19 13:40 hydromorphone [From Dilaudid] AdvReac Mild tactile Verified 11/25/19 13:40 disturbance GREG Inhibitors AdvReac Cough Verified 11/25/19 13:40 sodium dodecyclbenzene Allergy Rash/Hives Uncoded 11/06/19 13:17 sulfonate Physical Exam Vitals: Vital Signs Temp Pulse Resp BP Pulse Ox 11/27/19 07:00 98.4 F 67 12 112/63 98 11/27/19 04:15 12 11/27/19 02:44 98.3 F 69 12 112/61 98 11/26/19 23:45 18 11/26/19 20:19 99.7 F H 78 12 124/75 95 11/26/19 20:00 16 11/26/19 15:00 98.3 F 87 17 121/67 98 Intake and Output 11/26/19 11/27/19 11/27/19 22:59 06:59 14:59 Output Total 800 1600 Balance -800 -1600 Output: Stool 800 1600 Other: Voiding Method Bedside Commode Bedside Commode Diaper Diaper # Voids 2 - Constitutional Thinning, frail, beginning to look cachetic - EENT right lateral tongue ulceration Eyes: anicteric sclerae, EOMI ENT: hearing grossly normal - Neck Neck: no lymphadenopathy - Respiratory Respiratory: bilateral: CTA - Cardiovascular Rhythm: regular Heart sounds: normal: S1, S2 Abnormal Heart Sounds: no systolic murmur, no diastolic murmur, no rub, no S3 Gallop, no S4 Gallop, no click, no other leg Peripheral Edema: bilateral: None - Gastrointestinal General gastrointestinal: distended, hyperactive bowel sounds, soft, tenderness, ventral hernia - Integumentary thin skin, multiple bruises on forearms - Neurologic Neurologic: CNII-XII intact - Musculoskeletal Musculoskeletal: generalized weakness, strength equal bilaterally - Psychiatric Psychiatric: A&O x's 3, appropriate affect, intact judgment & insight Results CBC & Chem 7: 11/27/19 06:59 11/27/19 06:59 Labs: Abnormal Lab Results - Last 24 Hours (Table) 11/26/19 11/26/19 11/26/19 Range/Units 05:45 11:58 17:14 RBC 3.24 L (3.80-5.40) m/uL Hgb (11.4-16.0) gm/dL Hct (34.0-46.0) % MCV 109.8 H (80.0-100.0) fL MCH 35.5 H (25.0-35.0) pg Plt Count 67 L (150-450) k/uL Lymphocytes # 0.8 L (1.0-4.8) k/uL Macrocytosis Marked A Chloride (98-107) mmol/L Carbon Dioxide (22-30) mmol/L BUN (7-17) mg/dL Creatinine (0.52-1.04) mg/dL POC Glucose (mg/dL) 169 H 157 H (75-99) mg/dL Calcium (8.4-10.2) mg/dL Total Bilirubin (0.2-1.3) mg/dL AST (14-36) U/L ALT (4-34) U/L Alkaline Phosphatase (38-126) U/L Total Protein (6.3-8.2) g/dL Albumin (3.5-5.0) g/dL 11/26/19 11/27/19 11/27/19 Range/Units 20:29 00:59 01:30 RBC (3.80-5.40) m/uL Hgb (11.4-16.0) gm/dL Hct (34.0-46.0) % MCV (80.0-100.0) fL MCH (25.0-35.0) pg Plt Count (150-450) k/uL Lymphocytes # (1.0-4.8) k/uL Macrocytosis Chloride (98-107) mmol/L Carbon Dioxide (22-30) mmol/L BUN (7-17) mg/dL Creatinine (0.52-1.04) mg/dL POC Glucose (mg/dL) 103 H 59 L 103 H (75-99) mg/dL Calcium (8.4-10.2) mg/dL Total Bilirubin (0.2-1.3) mg/dL AST (14-36) U/L ALT (4-34) U/L Alkaline Phosphatase (38-126) U/L Total Protein (6.3-8.2) g/dL Albumin (3.5-5.0) g/dL 11/27/19 11/27/19 Range/Units 06:59 06:59 RBC 2.93 L (3.80-5.40) m/uL Hgb 10.1 L (11.4-16.0) gm/dL Hct 32.4 L (34.0-46.0) % MCV 110.4 H (80.0-100.0) fL MCH (25.0-35.0) pg Plt Count 65 L (150-450) k/uL Lymphocytes # 0.9 L (1.0-4.8) k/uL Macrocytosis Marked A Chloride 114 H (98-107) mmol/L Carbon Dioxide 18 L (22-30) mmol/L BUN 20 H (7-17) mg/dL Creatinine 1.11 H (0.52-1.04) mg/dL POC Glucose (mg/dL) (75-99) mg/dL Calcium 7.9 L (8.4-10.2) mg/dL Total Bilirubin 3.3 H (0.2-1.3) mg/dL AST 83 H (14-36) U/L ALT 38 H (4-34) U/L Alkaline Phosphatase 218 H (38-126) U/L Total Protein 5.7 L (6.3-8.2) g/dL Albumin 2.1 L (3.5-5.0) g/dL Chest x-ray: report reviewed CT scan - pelvis: report reviewed (prev visit) US - abdomen: report reviewed (prev visit) Assessment and Plan (1) Hepatic encephalopathy Narrative/Plan: Ammonia level 52 on admit, WNL now, being treated with lactulose. Bili 3.3, improved since admit, baseline 2-3 range, LFTs are near baseline for pt, INR 1.3, baseline for pt Current Visit: Yes Status: Acute Priority: High Code(s): K72.90 - HEPATIC FAILURE, UNSPECIFIED WITHOUT COMA SNOMED Code(s): 57648257 (2) Hepatocellular carcinoma Narrative/Plan: Last AFP was <2.5 11/09/2019. No current treatment for HCC. CT AP 11/08/19 reviewed. Current Visit: No Status: Chronic Priority: Medium Code(s): C22.0 - LIVER CELL CARCINOMA SNOMED Code(s): 231711321 (3) Thrombocytopenia Narrative/Plan: Stable at this time. Due to liver disease and likely splenic sequestration and destruction. Current Visit: No Status: Chronic Priority: Medium Code(s): D69.6 - THROMBOCYTOPENIA, UNSPECIFIED SNOMED Code(s): 410423705 Plan: Pt has either cancelled or no showed 7 appts (4 in 2019). She has not f/u with any Oncologist. There is no evidence at this time to suggest recurrent HCC. Cont to monitor AFP. She may need further work up of duodenal thickening on recent CT.
[2019-11-27 17:13] LABS: Glucose,Whole Blood 73 mg/dL (75-99)
[2019-11-27] MEDS: CLOTRIMAZOLE TROCHE 10 MG TROCHE MUCOUS MEM SCH ×2 (18:14→20:26)
[2019-11-27] MEDS: RIFAXIMIN 550 MG TABLET PO SCH (20:26)
[2019-11-27 20:27] LABS: Glucose,Whole Blood 182 mg/dL (75-99)
--- NOTE | 2019-11-27 22:46 | P.CONS ---
History of Present Illness - Reason for Consult Consult date: 11/27/19 MRSA pneumonia Requesting physician: Artemio Lea - Chief Complaint confusion x 1 day - History of Present Illness Patient is a 74-year-old female with a past medical history significant for liver cirrhosis and cancer who was recently admitted at this facility patient last admission did have a fever she was diagnosed with pneumonia sputum subsequently grew MRSA and the patient was treated with vancomycin and on discharge recommended to continue vancomycin for another week in the outpatient setting. Patient has not been brought back to [facility] ER with chief complaints of confusion and mental status changes. The patient unable to take her oral me dication especially the lactulose on arrival to the ER patient has been afebrile patient was noticed to have an ammonia level of 52 patient subsequently has been admitted hospital for management of her underlying mental status changes I was asked to see the patient for continued management of her underlying pneumonia secondary to MRSA. The patient currently denies having any fever or any chills, she is more awake and alert she knows she is in the hospital denies having any headache or chest pain no shortness of breath she did have mild cough not being up any sputum currently on room air no supplemental oxygen complain of some abdominal pain which seem to be chronic for her with no worsening and no nausea no vomiting Review of Systems Positive point has been mentioned in HPI rest of the systems are negative Past Medical History Past Medical History: Cancer, Diabetes Mellitus, Hypertension, Liver Disease, Myocardial Infarction ([place]), Renal Disease Additional Past Medical History / Comment(s): Hepatocellular liver cancer with chemo immobilization-last time being 2017, ascities with paracentesis's may 2019, nonalcoholic liver cirrhosis, chronic pancytopenia, chronic elevated ammonia levels, hepatic encephalopathy, chronic elevated LFTs, chronic abdominal pain, stomach ulcer, diverticular disease with ileostomy, IDDM type II, iron anemia, CKD stage III, nonsustained vtach, UTI, high ammonia levels Last Myocardial Infarction Date:: unk History of Any Multi-Drug Resistant Organisms: MRSA, 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 Past Anesthesia/Blood Transfusion Reactions: No Reported Reaction Past Psychological History: Anxiety, Depression Additional Psychological History / Comment(s): Reformed smoker. . Retired. No experience. No animal exposures Smoking Status: Former smoker Past Alcohol Use History: None Reported Additional Past Alcohol Use History / Comment(s): started smoking 1962 and quit 1965 Past Drug Use History: None Reported - Past Family History Mother History Unknown: Yes Family Medical History: Congestive Heart Failure (CHF) Additional Family Medical History / Comment(s): Mother is 94 yrs old. Father Family Medical History: Chest Pain / Angina Additional Family Medical History / Comment(s): Father is . Medications and Allergies Home Medications Medication Instructions Recorded Confirmed Type Omeprazole [PriLOSEC] 20 mg PO DAILY 10/23/18 11/25/19 History Sucralfate [Carafate] 1 gm PO ACHS 10/23/18 11/25/19 History Insulin Regular, Human [NovoLIN R] 10 unit SQ AC-TID 10/24/18 11/25/19 History Cholecalciferol [Vitamin D3 (25 2,000 unit PO DAILY 01/16/19 11/25/19 History Mcg = 1000 Iu)] Ferrous Sulfate [Iron (65 MG 325 mg PO BID 01/31/19 11/25/19 History Elemental)] Morphine Sulfate [Ms Contin] 15 mg PO BID 05/15/19 11/25/19 History buPROPion HCL [Wellbutrin SR] 150 mg PO DAILY 06/12/19 11/25/19 History clonazePAM [KlonoPIN] 0.5 mg PO BID@0800,199906/12/19 11/25/19 History Lactulose [Cephulac] 26 gm PO DAILY 07/22/19 11/25/19 History Dicyclomine [Bentyl] 10 mg PO DAILY 10/02/19 11/25/19 History Insulin NPH Human Isophane 18 unit SQ AC-BID 10/02/19 11/25/19 History [NovoLIN N] Metoprolol Tartrate [Lopressor] 6.25 mg PO DAILY tab 10/04/19 11/25/19 Rx Mag Hydrox/Al Hydrox/Simeth 30 ml PO TID cup 11/21/19 11/25/19 Rx [Maalox] Torsemide [Demadex] 20 mg PO DAILY tab 11/21/19 11/25/19 Rx Vancomycin 1,000 mg IVPB Q16H 7 Days #7 vial 11/21/19 11/25/19 Rx Acetaminophen Tab [Tylenol Tab] 650 mg PO Q8H PRN 11/25/19 11/25/19 History Isosorbide Mononitrate ER [Imdur] 30 mg PO DAILY@0800 11/25/19 11/25/19 History Spironolactone [Aldactone] 25 mg PO BID@0800,1600 11/25/19 11/25/19 History Allergies Allergy/AdvReac Type Severity Reaction Status Date / Time amlodipine Allergy Rash/Hives Verified 11/25/19 13:40 oxycodone Allergy Rash/Hives Verified 11/25/19 13:40 Penicillins Allergy Rash/Hives Verified 11/25/19 13:40 hydromorphone [From Dilaudid] AdvReac Mild tactile Verified 11/25/19 13:40 disturbance GREG Inhibitors AdvReac Cough Verified 11/25/19 13:40 sodium dodecyclbenzene Allergy Rash/Hives Uncoded 11/06/19 13:17 sulfonate Physical Exam Vitals: Vital Signs Temp Pulse Resp BP Pulse Ox 11/27/19 19:34 99.1 F 90 14 103/55 98 11/27/19 15:00 98.1 F 58 L 12 103/58 99 11/27/19 07:00 98.4 F 67 12 112/63 98 11/27/19 04:15 12 11/27/19 02:44 98.3 F 69 12 112/61 98 11/26/19 23:45 18 Intake and Output 11/27/19 11/27/19 11/27/19 06:59 14:59 22:59 Output Total 1600 900 200 Balance -1600 -900 -200 Output: Stool 1600 900 200 Other: Voiding Method Bedside Commode Bedside Commode Diaper Diaper # Voids 600 1 GENERAL DESCRIPTION: Elderly female lying in bed, no distress. No tachypnea or accessory muscle of respiration use. HEENT: Shows Pallor , no scleral icterus. Oral mucous membrane is dry. NECK: Trachea central, no thyromegaly. LUNGS: Unlabored breathing. Decreased breath sounds at bases. No wheeze or crackle. HEART: S1, S2, regular rate and rhythm. ABDOMEN: Soft, no tenderness , guarding or rigidity EXTREMITIES: No edema of feet. SKIN: No rash, no masses palpable. NEUROLOGICAL: The patient is awake, alert, oriented x3, mood and affect normal. Results CBC & Chem 7: 11/27/19 06:59 11/27/19 06:59 Labs: Abnormal Lab Results - Last 24 Hours (Table) 11/27/19 11/27/19 11/27/19 Range/Units 00:59 01:30 06:59 RBC 2.93 L (3.80-5.40) m/uL Hgb 10.1 L (11.4-16.0) gm/dL Hct 32.4 L (34.0-46.0) % MCV 110.4 H (80.0-100.0) fL Plt Count 65 L (150-450) k/uL Lymphocytes # 0.9 L (1.0-4.8) k/uL Macrocytosis Marked A Chloride (98-107) mmol/L Carbon Dioxide (22-30) mmol/L BUN (7-17) mg/dL Creatinine (0.52-1.04) mg/dL POC Glucose (mg/dL) 59 L 103 H (75-99) mg/dL Calcium (8.4-10.2) mg/dL Total Bilirubin (0.2-1.3) mg/dL AST (14-36) U/L ALT (4-34) U/L Alkaline Phosphatase (38-126) U/L Total Protein (6.3-8.2) g/dL Albumin (3.5-5.0) g/dL 11/27/19 11/27/19 11/27/19 Range/Units 06:59 11:38 17:01 RBC (3.80-5.40) m/uL Hgb (11.4-16.0) gm/dL Hct (34.0-46.0) % MCV (80.0-100.0) fL Plt Count (150-450) k/uL Lymphocytes # (1.0-4.8) k/uL Macrocytosis Chloride 114 H (98-107) mmol/L Carbon Dioxide 18 L (22-30) mmol/L BUN 20 H (7-17) mg/dL Creatinine 1.11 H (0.52-1.04) mg/dL POC Glucose (mg/dL) 109 H 73 L (75-99) mg/dL Calcium 7.9 L (8.4-10.2) mg/dL Total Bilirubin 3.3 H (0.2-1.3) mg/dL AST 83 H (14-36) U/L ALT 38 H (4-34) U/L Alkaline Phosphatase 218 H (38-126) U/L Total Protein 5.7 L (6.3-8.2) g/dL Albumin 2.1 L (3.5-5.0) g/dL 11/27/19 Range/Units 20:15 RBC (3.80-5.40) m/uL Hgb (11.4-16.0) gm/dL Hct (34.0-46.0) % MCV (80.0-100.0) fL Plt Count (150-450) k/uL Lymphocytes # (1.0-4.8) k/uL Macrocytosis Chloride (98-107) mmol/L Carbon Dioxide (22-30) mmol/L BUN (7-17) mg/dL Creatinine (0.52-1.04) mg/dL POC Glucose (mg/dL) 182 H (75-99) mg/dL Calcium (8.4-10.2) mg/dL Total Bilirubin (0.2-1.3) mg/dL AST (14-36) U/L ALT (4-34) U/L Alkaline Phosphatase (38-126) U/L Total Protein (6.3-8.2) g/dL Albumin (3.5-5.0) g/dL Assessment and Plan Assessment: patient admitted to the hospital with mental status changes which could be rel ated to her underlying hepatic encephalopathy in this patient have history of liver cirrhosis and cancer clinical or any worsening infection as patient currently do not have any fever or elevated white count and a chest x-ray has been mostly features of CHF (1) MRSA pneumonia Current Visit: Yes Status: Acute Code(s): J15.212 - PNEUMONIA DUE TO METHICILLIN RESISTANT STAPHYLOCOCCUS AUREUS SNOMED Code(s): 403526880303995 Plan: 1-vancomycin pharmacy to dose her with a target trough of 15 while watching her kidney function and Vanco trough closely. Will be continued to finish her treatment discussed with the pharmacy for the length of treatment so for the patient has received We will follow on clinical condition and cultures to further adjust medication if needed Thank you for this consultation we will follow the patient along with you Time with Patient: Greater than 30
--- NOTE | 2019-11-27 23:23 | P.CONS ---
History of Present Illness - Reason for Consult Consult date: 11/27/19 Decompensated cirrhosis, hepatocellular carcinoma, ascites,HE Requesting physician: Artemio Lea - Chief Complaint Altered mental status - History of Present Illness 74-year-old female with a medical history significant for hepatocellular carcinoma status post chemoembolization, underlying nonalcoholic liver cirrhosis with portal hypertension, ascending and hepatic encephalopathy, diverticular disease complicated in the past and requiring surgical intervention with col ostomy formation, chronic kidney disease, chronic abdominal pain who presented to the hospital from her ECF facility due to altered mental status. The patient has a known history of hepatic encephalopathy with episodes of confusion occurring secondary to noncompliance with medications. On current admission the patient's does not remember refusing medications, however she states that she has been told that she was not taking her lactulose in the outpatient setting. The patient subsequently became more confused and was brought to the hospital for further evaluation. At that time the patient was unresponsive and found to have an elevated ammonia level of 52. Currently she is seen in evaluation at bedside saying that she is feeling better. She does report some abdominal pain and has required frequent paracentesis in the past. She also has chronic abdominal pain related to her ostomy. The patient was recently diagnosed with a MRSA ammonia and discharge on IV vancomycin. Currently she is stating she is having good output from her ostomy with no signs or symptoms of GI bleeding. S he had an EGD in evaluation of abdominal pain on 07/2019 significant only for mild gastritis. Review of Systems REVIEW OF SYSTEMS: CONSTITUTIONAL: Denies any fevers, chills, weight change or fatigue. CARDIOVASCULAR: Denies any chest pain, palpitations high or low blood pressures RESPIRATORY: Denies any shortness of breath, hemoptysis or cough. GENITOURINARY: No dysuria or hematuria. MUSCULOSKELETAL: No weakness reported. SKIN: Denies any new rashes or lesions, jaundice or pallor. PSYCHIATRIC: Denies any depression or anxiety. NEUROLOGY: Denies headache, denies any new focal deficits. EARS/NOSE/THROAT: No recent hearing change, congestion, nasal discharge or sore throat. EYES: No pain in eyes, discharge or change in vision. GASTROINTESTINAL: As per HPI. Past Medical History Past Medical History: Cancer, Diabetes Mellitus, Hypertension, Liver Disease, Myocardial Infarction ([place]), Renal Disease Additional Past Medical History / Comment(s): Hepatocellular liver cancer with chemo immobilization-last time being 2017, ascities with paracentesis's may 2019, nonalcoholic liver cirrhosis, chronic pancytopenia, chronic elevated ammonia levels, hepatic encephalopathy, chronic elevated LFTs, chronic abdominal pain, stomach ulcer, diverticular disease with ileostomy, IDDM type II, iron anemia, CKD stage III, nonsustained vtach, UTI, high ammonia levels Last Myocardial Infarction Date:: unk History of Any Multi-Drug Resistant Organisms: MRSA, 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 Past Anesthesia/Blood Transfusion Reactions: No Reported Reaction Past Psychological History: Anxiety, Depression Additional Psychological History / Comment(s): Reformed smoker. . Retired. No experience. No animal exposures Smoking Status: Former smoker Past Alcohol Use History: None Reported Additional Past Alcohol Use History / Comment(s): started smoking 1962 and quit 1965 Past Drug Use History: None Reported - Past Family History Mother History Unknown: Yes Family Medical History: Congestive Heart Failure (CHF) Additional Family Medical History / Comment(s): Mother is 94 yrs old. Father Family Medical History: Chest Pain / Angina Additional Family Medical History / Comment(s): Father is . Medications and Allergies Home Medications Medication Instructions Recorded Confirmed Type Omeprazole [PriLOSEC] 20 mg PO DAILY 10/23/18 11/25/19 History Sucralfate [Carafate] 1 gm PO ACHS 10/23/18 11/25/19 History Insulin Regular, Human [NovoLIN R] 10 unit SQ AC-TID 10/24/18 11/25/19 History Cholecalciferol [Vitamin D3 (25 2,000 unit PO DAILY 01/16/19 11/25/19 History Mcg = 1000 Iu)] Ferrous Sulfate [Iron (65 MG 325 mg PO BID 01/31/19 11/25/19 History Elemental)] Morphine Sulfate [Ms Contin] 15 mg PO BID 05/15/19 11/25/19 History buPROPion HCL [Wellbutrin SR] 150 mg PO DAILY 06/12/19 11/25/19 History clonazePAM [KlonoPIN] 0.5 mg PO BID@0800,2000 06/12/19 11/25/19 History Lactulose [Cephulac] 26 gm PO DAILY 07/22/19 11/25/19 History Dicyclomine [Bentyl] 10 mg PO DAILY 10/02/19 11/25/19 History Insulin NPH Human Isophane 18 unit SQ AC-BID 10/02/19 11/25/19 History [NovoLIN N] Metoprolol Tartrate [Lopressor] 6.25 mg PO DAILY tab 10/04/19 11/25/19 Rx Mag Hydrox/Al Hydrox/Simeth 30 ml PO TID cup 11/21/19 11/25/19 Rx [Maalox] Torsemide [Demadex] 20 mg PO DAILY tab 11/21/19 11/25/19 Rx Vancomycin 1,000 mg IVPB Q16H 7 Days #7 vial 11/21/19 11/25/19 Rx Acetaminophen Tab [Tylenol Tab] 650 mg PO Q8H PRN 11/25/19 11/25/19 History Isosorbide Mononitrate ER [Imdur] 30 mg PO DAILY@0800 11/25/19 11/25/19 History Spironolactone [Aldactone] 25 mg PO BID@0800,1600 11/25/19 11/25/19 History Allergies Allergy/AdvReac Type Severity Reaction Status Date / Time amlodipine Allergy Rash/Hives Verified 11/25/19 13:40 oxycodone Allergy Rash/Hives Verified 11/25/19 13:40 Penicillins Allergy Rash/Hives Verified 11/25/19 13:40 hydromorphone [From Dilaudid] AdvReac Mild tactile Verified 11/25/19 13:40 disturbance GREG Inhibitors AdvReac Cough Verified 11/25/19 13:40 sodium dodecyclbenzene Allergy Rash/Hives Uncoded 11/06/19 13:17 sulfonate Physical Exam Vitals: Vital Signs Temp Pulse Resp BP Pulse Ox 11/27/19 19:34 99.1 F 90 14 103/55 98 11/27/19 15:00 98.1 F 58 L 12 103/58 99 11/27/19 07:00 98.4 F 67 12 112/63 98 11/27/19 04:15 12 11/27/19 02:44 98.3 F 69 12 112/61 98 11/26/19 23:45 18 Intake and Output 11/27/19 11/27/19 11/28/19 14:59 22:59 06:59 Output Total 900 200 Balance -900 -200 Output: Stool 900 200 Other: Voiding Method Bedside Commode Diaper # Voids 600 1 On physical examination, patient appears comfortable in no apparent distress. HEAD: Normocephalic, atraumatic. EYES: No scleral icterus. No conjunctival injection. MOUTH: No lesions, tongue midline. NECK: Trachea midline, no gross abnormalities. CHEST: Clear to auscultation with no wheezing or rhonchi appreciated. HEART: Regular rate and rhythm. ABDOMEN: Soft, obese, ostomy intact with good output, mild diffuse abdominal pain on deep palpation. Bowel sounds are positive. No organomegaly. No guarding or rigidity. EXTREMITIES: Mild bilateral pedal edema. SKIN: No rashes, no jaundice. NEUROLOGIC: Alert and oriented x3, no asterixis noted. No focal deficits. Results CBC & Chem 7: 11/27/19 06:59 11/27/19 06:59 Labs: Abnormal Lab Results - Last 24 Hours (Table) 11/27/19 11/27/19 11/27/19 Range/Units 00:59 01:30 06:59 RBC 2.93 L (3.80-5.40) m/uL Hgb 10.1 L (11.4-16.0) gm/dL Hct 32.4 L (34.0-46.0) % MCV 110.4 H (80.0-100.0) fL Plt Count 65 L (150-450) k/uL Lymphocytes # 0.9 L (1.0-4.8) k/uL Macrocytosis Marked A Chloride (98-107) mmol/L Carbon Dioxide (22-30) mmol/L BUN (7-17) mg/dL Creatinine (0.52-1.04) mg/dL POC Glucose (mg/dL) 59 L 103 H (75-99) mg/dL Calcium (8.4-10.2) mg/dL Total Bilirubin (0.2-1.3) mg/dL AST (14-36) U/L ALT (4-34) U/L Alkaline Phosphatase (38-126) U/L Total Protein (6.3-8.2) g/dL Albumin (3.5-5.0) g/dL 11/27/19 11/27/19 11/27/19 Range/Units 06:59 11:38 17:01 RBC (3.80-5.40) m/uL Hgb (11.4-16.0) gm/dL Hct (34.0-46.0) % MCV (80.0-100.0) fL Plt Count (150-450) k/uL Lymphocytes # (1.0-4.8) k/uL Macrocytosis Chloride 114 H (98-107) mmol/L Carbon Dioxide 18 L (22-30) mmol/L BUN 20 H (7-17) mg/dL Creatinine 1.11 H (0.52-1.04) mg/dL POC Glucose (mg/dL) 109 H 73 L (75-99) mg/dL Calcium 7.9 L (8.4-10.2) mg/dL Total Bilirubin 3.3 H (0.2-1.3) mg/dL AST 83 H (14-36) U/L ALT 38 H (4-34) U/L Alkaline Phosphatase 218 H (38-126) U/L Total Protein 5.7 L (6.3-8.2) g/dL Albumin 2.1 L (3.5-5.0) g/dL 11/27/19 Range/Units 20:15 RBC (3.80-5.40) m/uL Hgb (11.4-16.0) gm/dL Hct (34.0-46.0) % MCV (80.0-100.0) fL Plt Count (150-450) k/uL Lymphocytes # (1.0-4.8) k/uL Macrocytosis Chloride (98-107) mmol/L Carbon Dioxide (22-30) mmol/L BUN (7-17) mg/dL Creatinine (0.52-1.04) mg/dL POC Glucose (mg/dL) 182 H (75-99) mg/dL Calcium (8.4-10.2) mg/dL Total Bilirubin (0.2-1.3) mg/dL AST (14-36) U/L ALT (4-34) U/L Alkaline Phosphatase (38-126) U/L Total Protein (6.3-8.2) g/dL Albumin (3.5-5.0) g/dL Chest x-ray: report reviewed (Increased pulmonary congestion on chest x-ray) Assessment and Plan (1) Hepatic encephalopathy Narrative/Plan: 74-year-old female with history of nonalcoholic liver cirrhosis with decompensation including hepatic encephalopathy and paracentesis requiring large volume paracentesis in the past who presents to the hospital due to altered mental status and confusion in the setting of medication noncompliance. Patient has been treated with chemoembolization on numerous occasions for hepatocellular carcinoma in the past. On current presentation the patient had been admitted to an extended-care facility and refuses lactulose therapy and subsequently suffered worsening mental status. Currently the patient is alert and oriented 3 with no asterixis noted. Current Visit: Yes Status: Acute Priority: High Code(s): K72.90 - HEPATIC FAILURE, UNSPECIFIED WITHOUT COMA SNOMED Code(s): 77298150 (2) Chronic liver disease Current Visit: Yes Status: Acute Code(s): K76.9 - LIVER DISEASE, UNSPECIFIED SNOMED Code(s): 749321177 (3) Hyperbilirubinemia Current Visit: Yes Status: Acute Code(s): E80.6 - OTHER DISORDERS OF BILIRUBIN METABOLISM SNOMED Code(s): 39953662 (4) History of liver cancer Current Visit: Yes Status: Chronic Priority: Medium Code(s): Z85.05 - PE RSONAL HISTORY OF MALIGNANT NEOPLASM OF LIVER SNOMED Code(s): 921265279 (5) Abdominal pain Current Visit: No Status: Acute Priority: High Code(s): R10.9 - UNSPECIFIED ABDOMINAL PAIN SNOMED Code(s): 92708949 (6) Cirrhosis of liver with ascites Current Visit: No Status: Acute Code(s): K74.60 - UNSPECIFIED CIRRHOSIS OF LIVER; R18.8 - OTHER ASCITES SNOMED Code(s): 15374030 (7) Colostomy in place Current Visit: No Status: Acute Code(s): Z93.3 - COLOSTOMY STATUS SNOMED Code(s): 575215832 (8) Hepatic encephalopathy Current Visit: No Status: Acute Code(s): K72.90 - HEPATIC FAILURE, UNSPECIFIED WITHOUT COMA SNOMED Code(s): 08205141 Plan: Supportive care Okay for sodium restricted diet Continue spironolactone therapy Continue lactulose 3 times a day Continue rifaximin twice a day Continue to monitor her mental status Continue Protonix daily Continue dicyclomine for abdominal pain and Thank you for allowing us to participate in the care of the patient we will continue to follow
[2019-11-28] MEDS: VANCOMYCIN 1,500 MG in SODIUM CHLORIDE 0.9% 250 ML IVPB SCH ×2 (03:52→23:21)
[2019-11-28 07:23] LABS: Glucose,Whole Blood 117 mg/dL (75-99)
[2019-11-28] MEDS: INSULIN ASPART (NovoLOG) 100 UNIT/ML VIAL SQ SCH ×4 (07:54→19:49)
[2019-11-28] MEDS: LACTULOSE 20 GM/30 ML CUP PO SCH ×3 (07:58→19:48)
[2019-11-28] MEDS: MORPHINE SULFATE ER 15 MG TABLET PO SCH ×2 (07:58→19:49)
[2019-11-28] MEDS: ISOSORBIDE MONONITRATE ER 30 MG TAB.ER.24H PO SCH (07:59)
[2019-11-28] MEDS: METOPROLOL TARTRATE 12.5 MG TAB PO SCH (07:59)
[2019-11-28] MEDS: SPIRONOLACTONE 25 MG TAB PO SCH ×2 (07:59→17:29)
[2019-11-28] MEDS: DICYCLOMINE 10 MG CAP PO SCH (07:59)
[2019-11-28] MEDS: FERROUS SULFATE 325 MG TAB PO SCH ×2 (07:59→19:49)
[2019-11-28] MEDS: CHOLECALCIFEROL 1,000 UNIT TAB PO SCH (07:59)
[2019-11-28] MEDS: PANTOPRAZOLE 40 MG TABLET PO SCH (07:59)
[2019-11-28] MEDS: SUCRALFATE 1 GM TAB PO SCH ×4 (07:59→19:49)
[2019-11-28] MEDS: TORSEMIDE 20 MG TAB PO SCH (08:00)
[2019-11-28] MEDS: INSULIN REGULAR 100 UNIT/ML VIAL SQ SCH ×3 (08:00→17:29)
[2019-11-28] MEDS: RIFAXIMIN 550 MG TABLET PO SCH ×2 (08:00→19:50)
[2019-11-28] MEDS: buPROPion SR 150 MG TABLET.ER PO SCH (08:00)
[2019-11-28] MEDS: INSULIN NPH 300 UNIT/3 ML VIAL SQ SCH ×2 (08:00→17:29)
[2019-11-28] MEDS: CLOTRIMAZOLE TROCHE 10 MG TROCHE MUCOUS MEM SCH ×3 (08:01→19:50)
[2019-11-28 08:14] LABS: Calcium 7.2 mg/dL (8.4-10.2); Potassium 3.8 mmol/L (3.5-5.1); Total Bilirubin 1.9 mg/dL (0.2-1.3); Total Protein 5.2 g/dL (6.3-8.2)
[2019-11-28 08:20] LABS: Basophils % (A) 0 %; Eosinophils # (A) 0.4 k/uL (0-0.7); Eosinophils % (A) 10 %; HCT 29.4 % (34.0-46.0); HGB 9.7 gm/dL (11.4-16.0); Hypochromasia Slight; Lymphocytes % (A) 24 %; MCH 36.4 pg (25.0-35.0); MCHC 32.9 g/dL (31.0-37.0); MCV 110.7 fL (80.0-100.0); Macrocytosis Marked; Mean Platelet Volume 10.3; Monocytes # (A) 0.4 k/uL (0-1.0); Monocytes % (A) 9 %; Neutrophils # (A) 2.3 k/uL (1.3-7.7); Neutrophils % (A) 54 %; RBC 2.66 m/uL (3.80-5.40); RDW 14.7 % (11.5-15.5); WBC 4.2 k/uL (3.8-10.6)
[2019-11-28 08:27] LABS: Platelet Count 63 k/uL (150-450)
--- NOTE | 2019-11-28 10:33 | P.PN ---
Subjective Progress Note Date: 11/28/19 Charlene Keenan is a 74-year-old female with known history of liver cirrhosis and liver cancer who was recently discharged from [facility] to the intermediate. Patient did well for a short period of time then she was having mental status changes and decreased consciousness, she was unable to take her oral medications, I was contacted by the intermediate in that regard and I asked for the patient to be transferred back to emergency room. In the emergency room patient was unresponsive her ammonia level was elevated at 52 liver enzymes were elevated BUN and creatinine were slightly elevated patient received a lactulose enema in the emergency room and was admitted to medical floor for further evaluation and treatment. This morning patient was alert and oriented 3 in no apparent distress she was complaining of back pain otherwise she denies any complaints, her ammonia level is down to less then 9, liver enzymes are still elevated but better than yesterday, BUN and creatinine are still slightly elevated at 20 and 1.08. During the last admission patient was diagnosed with MRSA pneumonia she was discharged to the intermediate on IV vancomycin, at this time consultation for pharmacy to resume dosing vancomycin and consultation for infectious disease Dr. Esparza were initiated. On 11/27/2019 patient is alert and oriented 3. Having increased abdominal pain. Awaiting consult for further management of chronic conditions. Patient remains on IV vancomycin. Vitals have remained stable. Home medications resumed. At this time patient denies chest pain or shortness breath. Patient is having some abdominal cramping. Patient denies any nausea or vomiting. Patient denies any urinary burning or frequency. On 11/28/2019 patient is alert and oriented 3. Patient was evaluated by GI, oncology and infectious disease no further workup at this time. Daily ammonia levels have been ordered. Patient remains oriented. Abdominal pain has improved. Patient remains on vancomycin for MRSA in the sputum per infectious disease. At this time patient denies chest pain. Patient denies nausea vomiting or diarrhea. Patient denies any urinary burning or frequency Objective - Vital Signs Vital signs: Vital Signs Temp 98.7 F 11/28/19 07:00 Pulse 66 11/28/19 07:00 Resp 16 11/28/19 07:00 BP 91/53 11/28/19 07:00 Pulse Ox 97 11/28/19 07:00 Intake & Output 11/27/19 11/28/19 11/28/19 18:59 06:59 18:59 Output Total 664 142 6672 Balance -900 -550 -1200 Output: Stool 928 916 9421 Other: Voiding Method Bedside Commode Diaper # Voids 600 1 - Exam At this time patient is alert and oriented 3 answering questions appropriately HEENT head normocephalic and atraumatic Neck is supple no JVD no goiter no lymphadenopathy Chest exam reveals a few scattered crackles no wheezing Cardiac exam reveals regular heart sounds no gallops no murmurs Abdomen is soft nontender no organomegaly slightly distended with ascites with normal bowel sounds Extremity exam reveals no edema no cyanosis or clubbing Neurological examination reveals no gross focal deficit at this time - Labs CBC & Chem 7: 11/28/19 06:44 11/28/19 06:44 Labs: Abnormal Lab Results - Last 24 Hours (Table) 11/27/19 11/27/19 11/27/19 Range/Units 11:38 17:01 20:15 RBC (3.80-5.40) m/uL Hgb (11.4-16.0) gm/dL Hct (34.0-46.0) % MCV (80.0-100.0) fL MCH (25.0-35.0) pg Macrocytosis Sodium (137-145) mmol/L Chloride (98-107) mmol/L Carbon Dioxide (22-30) mmol/L BUN (7-17) mg/dL Creatinine (0.52-1.04) mg/dL POC Glucose (mg/dL) 109 H 73 L 182 H (75-99) mg/dL Calcium (8.4-10.2) mg/dL Total Bilirubin (0.2-1.3) mg/dL AST (14-36) U/L ALT (4-34) U/L Alkaline Phosphatase (38-126) U/L Total Protein (6.3-8.2) g/dL Albumin (3.5-5.0) g/dL 11/28/19 11/28/19 11/28/19 Range/Units 06:44 06:44 07:06 RBC 2.66 L (3.80-5.40) m/uL Hgb 9.7 L (11.4-16.0) gm/dL Hct 29.4 L (34.0-46.0) % MCV 110.7 H (80.0-100.0) fL MCH 36.4 H (25.0-35.0) pg Macrocytosis Marked A Sodium 136 L (137-145) mmol/L Chloride 111 H (98-107) mmol/L Carbon Dioxide 21 L (22-30) mmol/L BUN 20 H (7-17) mg/dL Creatinine 1.21 H (0.52-1.04) mg/dL POC Glucose (mg/dL) 117 H (75-99) mg/dL Calcium 7.2 L (8.4-10.2) mg/dL Total Bilirubin 1.9 H (0.2-1.3) mg/dL AST 75 H (14-36) U/L ALT 36 H (4-34) U/L Alkaline Phosphatase 229 H (38-126) U/L Total Protein 5.2 L (6.3-8.2) g/dL Albumin 2.0 L (3.5-5.0) g/dL Assessment and Plan Assessment: #1 altered mental status, multifactorial related to pain medications and liver cirrhosis, improved significantly since yesterday with holding pain medications and giving lactulose enema. At this time oral lactulose was restarted, patient is complaining of severe pain she will be restarted on morphine as she is ALLERGIC to hydromorphone and oxycodone, will monitor mental function closely. Mentation has improved patient back to baseline #2 underlying history of liver cirrhosis, with recurrent ascites, maintained on frequent paracentesis, oral lactulose, oral diuretics and oral beta blockers. Per GI services continue Aldactone, lactulose 3 times a day. Xifaxan added continue Bentyl and Protonix for abdominal discomfort. Daily ammonia levels have been ordered #3 underlying history of liver cancer, seen in the past by oncology Will consult oncology again to reassess. Per oncology service is patient has either canceled or no showed for 7 appointments outpatient no evidence at this time to suggest recurrent HCC. Patient may need further workup of duodenal thickening on recent CT per oncology. MRI of the liver has been ordered per oncology service is #4 underlying history of chronic back pain, requiring narcotic use #5 underlying history of anxiety disorder and depression, maintained on bupropion and Klonopin #6 recent history of pneumonia was methicillin-resistant Staphylococcus aureus, restart IV vancomycin, consult infectious disease. Tinea IV Vanco during hospitalization per ID patient will likely not require any further IV vancomycin upon discharge #7 underlying history of chronic kidney disease stage III #8 underlying history of diabetes mellitus type 2 requiring insulin #9 underlying history of thrombocytopenia related to liver cirrhosis, currently platelet count is 67,000 Will monitor closely hematology and gastroenterology consult are in progress. DVT prophylaxis we will use SCD stockings and avoid anticoagulation due to thrombocytopenia GI prophylaxis patient is on Protonix Infectious disease, oncology and GI services following I performed an examination of the patient and discussed their management with the Nurse Practitioner. I have reviewed the Nurse Practitioner's notes and agree with the documented findings and plan of care
[2019-11-28 12:13] LABS: Glucose,Whole Blood 140 mg/dL (75-99)
[2019-11-28] MEDS ORDERED: VANCOMYCIN TROUGH DUE 1 EACH MISC MISCELLANE ONE (14:00)
[2019-11-28 14:18] LABS: Glucose,Whole Blood 86 mg/dL (75-99)
--- NOTE | 2019-11-28 16:19 | MR ---
MR liver with and without contrast HISTORY: Hepatocellular carcinoma Multiplanar multisequence and postcontrast images obtained through the liver following 8 cc Gadavist IV. Exam is correlated to prior MRI of the liver 04/15/2019, CT 11/08/2019 The mass is previous identified within the liver are again noted. The largest lesion posteriorly with in the right lobe measures approximately 6.9 x 6.3 x 6.6 cm which is increased from previous exam whe n it measured approximately 5.4 x 5 x 4.9 cm. There is mixed signal intensity present in the dominant lesion with areas of septation and enhancement. Left lobe shows a stable low signal focus measuring approximately 2 cm similar to prior in the lateral segment, additional focus within the medial segmen t measures 4.5 centimeters is hypointense on postcontrast images similar to prior when it measured 4. 5 cm. No biliary ductal dilation. Gallbladder is not seen. There is ascites present. The spleen is enlarged. Pancreas appears atrophic. Lung bases show some patchy density greater on the left than on the right. There are extensive varice s present in the left upper quadrant similar to prior exam as well as at the gastroesophageal junctio n. Aorta is patent. Probable fluid or secretions present within the stomach. Mild hydronephrosis noted w ithin the right kidney and proximal right hydroureter as compared to prior exam. IMPRESSION: Interval growth in patient's hepatocellular carcinoma. Ascites and evidence of portal hyp ertension with varices as described. Indeterminate abnormal attenuation at the lung base on the left greater than right may be due to atelectatic change, there is improved compared to prior CT. The righ t-sided hydronephrosis is mild.
--- NOTE | 2019-11-28 16:35 | P.PN ---
Subjective Progress Note Date: 11/28/19 Principal diagnosis: AMS, hepatic encephalopathy In f/u today pt is in chair, she tolerates some of her meals, no recent nausea, mild SOB On exertion, she has generalized weakness, denies any acute changes in the consistency of her ostomy output. Objective - Vital Signs Vital signs: Vital Signs Temp 98.3 F 11/28/19 15:00 Pulse 51 L 11/28/19 15:00 Resp 16 11/28/19 15:00 BP 105/59 11/28/19 15:00 Pulse Ox 100 11/28/19 15:00 Intake & Output 11/27/19 11/28/19 11/28/19 18:59 06:59 18:59 Output Total 593 852 5964 Balance -900 -550 -1200 Output: Stool 314 980 2830 Other: Voiding Method Bedside Commode Diaper # Voids 600 1 3 # Bowel Movements 4 - Constitutional Constitutional Comment(s): Thinning, frail General appearance: Present: cooperative - EENT Eyes: Present: anicteric sclerae, EOMI ENT: Present: hearing grossly normal - Respiratory Respiratory: bilateral: CTA - Cardiovascular Heart sounds: normal: S1, S2 Abnormal Heart Sounds: Absent: systolic murmur, diastolic murmur, rub, S3 Gallop, S4 Gallop, click, other - Peripheral edema leg Peripheral Edema: bilateral: None - Gastrointestinal General gastrointestinal: Present: distended, normal bowel sounds, soft, tenderness - Neurologic Neurologic: Present: CNII-XII intact - Musculoskeletal Musculoskeletal: Present: generalized weakness - Psychiatric Psychiatric: Present: A&O x's 3, appropriate affect, intact judgment & insight - Labs CBC & Chem 7: 11/28/19 06:44 11/28/19 06:44 Labs: Abnormal Lab Results - Last 24 Hours (Table) 11/27/19 11/27/19 11/28/19 Range/Units 17:01 20:15 06:44 RBC 2.66 L (3.80-5.40) m/uL Hgb 9.7 L (11.4-16.0) gm/dL Hct 29.4 L (34.0-46.0) % MCV 110.7 H (80.0-100.0) fL MCH 36.4 H (25.0-35.0) pg Plt Count 63 L (150-450) k/uL Macrocytosis Marked A Sodium (137-145) mmol/L Chloride (98-107) mmol/L Carbon Dioxide (22-30) mmol/L BUN (7-17) mg/dL Creatinine (0.52-1.04) mg/dL POC Glucose (mg/dL) 73 L 182 H (75-99) mg/dL Calcium (8.4-10.2) mg/dL Total Bilirubin (0.2-1.3) mg/dL AST (14-36) U/L ALT (4-34) U/L Alkaline Phosphatase (38-126) U/L Total Protein (6.3-8.2) g/dL Albumin (3.5-5.0) g/dL 11/28/19 11/28/19 11/28/19 Range/Units 06:44 07:06 11:58 RBC (3.80-5.40) m/uL Hgb (11.4-16.0) gm/dL Hct (34.0-46.0) % MCV (80.0-100.0) fL MCH (25.0-35.0) pg Plt Count (150-450) k/uL Macrocytosis Sodium 136 L (137-145) mmol/L Chloride 111 H (98-107) mmol/L Carbon Dioxide 21 L (22-30) mmol/L BUN 20 H (7-17) mg/dL Creatinine 1.21 H (0.52-1.04) mg/dL POC Glucose (mg/dL) 117 H 140 H (75-99) mg/dL Calcium 7.2 L (8.4-10.2) mg/dL Total Bilirubin 1.9 H (0.2-1.3) mg/dL AST 75 H (14-36) U/L ALT 36 H (4-34) U/L Alkaline Phosphatase 229 H (38-126) U/L Total Protein 5.2 L (6.3-8.2) g/dL Albumin 2.0 L (3.5-5.0) g/dL Assessment and Plan (1) Hepatic encephalopathy Narrative/Plan: Ammonia level 52 on admit, WNL now, being treated with lactulose. Bili 1.9 today, baseline 2-3 range, LFTs are near baseline for pt, INR 1.3, baseline for pt-no lab today Pt mental status is improved Current Visit: Yes Status: Acute Priority: High Code(s): K72.90 - HEPATIC FAILURE, UNSPECIFIED WITHOUT COMA SNOMED Code(s): 57485173 (2) Hepatocellular carcinoma Narrative/Plan: Last AFP was <2.5 11/09/2019. No current treatment for HCC. CT AP 11/08/19 reviewed, non-contrast On review, all scans last year were non-contrast. Have requested MRI liver to evaluate disease status, ok to await optimal renal function to perform scan as contrast is critical to evaluation. Current Visit: No Status: Chronic Priority: Medium Code(s): C22.0 - LIVER CELL CARCINOMA SNOMED Code(s): 616198925 (3) Thrombocytopenia Narrative/Plan: Stable at this time. Due to liver disease and likely splenic sequestration and destruction. Current Visit: No Status: Chronic Priority: Medium Code(s): D69.6 - THROMBOCYTOPENIA, UNSPECIFIED SNOMED Code(s): 677203759 Plan: Pt has either cancelled or no showed 7 appts (4 in 2019). She has not f/u with any Oncologist. There is no evidence at this time to suggest recurrent HCC based on recent scans and AFP. Since no recent contrast scans, MRI has been ordered of the liver to evaluate disease. She may need further work up of duodenal thickening on recent CT as well.
[2019-11-28 16:52] LABS: Glucose,Whole Blood 119 mg/dL (75-99)
--- NOTE | 2019-11-28 17:12 | PN ---
PROGRESS NOTE DATE OF SERVICE: 11/28/2019. REASON FOR FOLLOWUP: MRSA pneumonia. INTERVAL HISTORY: The patient is currently afebrile. The patient is breathing comfortably. The patient denies having any chest pain or shortness of breath or cough. No nausea, no vomiting. Some vague abdominal pain, but no diarrhea. PHYSICAL EXAMINATION: Blood pressure 105/59 with a pulse of 51, temperature 98.3. She is 100% on room air. General description is an elderly female up in the bed in no distress. RESPIRATORY SYSTEM: Unlabored breathing. Clear to auscultation anteriorly. HEART: S1, S2. Regular rate and rhythm. ABDOMEN: Soft. No tenderness. LABS: Hemoglobin 9.7, white count 4.2, creatinine 1.21. Vancomycin trough is on the high side. DIAGNOSTIC IMPRESSION AND PLAN: Patient with an methicillin-resistant Staphylococcus aeruginosa pneumonia that has been adequately treated in this patient who has received more than a 2-week course of antibiotic therapy. Vancomycin could be discontinued on discharge and continue with supportive care. MMODL / IJN: [id number] /
[2019-11-28 19:50] LABS: Glucose,Whole Blood 163 mg/dL (75-99)
--- NOTE | 2019-11-28 21:55 | P.PN ---
Subjective Progress Note Date: 11/28/19 Principal diagnosis: Decompensated nonalcoholic cirrhosis, hepatocellular carcinoma, hepatic encephalopathy Patient is seen sitting bedside. No signs or symptoms of GI bleed with good nonbloody O blood in ostomy. Tolerating diet. No confusion reported. Objective - Vital Signs Vital signs: Vital Signs Temp 98.7 F 11/28/19 07:00 Pulse 66 11/28/19 07:00 Resp 16 11/28/19 07:00 BP 91/53 11/28/19 07:00 Pulse Ox 97 11/28/19 07:00 Intake & Output 11/27/19 11/28/19 11/28/19 18:59 06:59 18:59 Output Total 615 715 1154 Balance -900 -550 -1200 Output: Stool 453 406 6050 Other: Voiding Method Bedside Commode Diaper # Voids 600 1 - Exam On physical examination, patient appears comfortable in no apparent distress. HEAD: Normocephalic, atraumatic. EYES: No scleral icterus. No conjunctival injection. MOUTH: No lesions, tongue midline. NECK: Trachea midline, no gross abnormalities. ABDOMEN: Soft, obese right-sided abdominal ostomy noted with good stool output. Bowel sounds are positive. No organomegaly. No guarding or rigidity. EXTREMITIES: No pedal edema. SKIN: No rashes, no jaundice. NEUROLOGIC: Alert and oriented x3, no asterixis. No focal deficits. - Labs CBC & Chem 7: 11/28/19 06:44 11/28/19 06:44 Labs: Abnormal Lab Results - Last 24 Hours (Table) 11/27/19 11/27/19 11/28/19 Range/Units 17:01 20:15 06:44 RBC 2.66 L (3.80-5.40) m/uL Hgb 9.7 L (11.4-16.0) gm/dL Hct 29.4 L (34.0-46.0) % MCV 110.7 H (80.0-100.0) fL MCH 36.4 H (25.0-35.0) pg Plt Count 63 L (150-450) k/uL Macrocytosis Marked A Sodium (137-145) mmol/L Chloride (98-107) mmol/L Carbon Dioxide (22-30) mmol/L BUN (7-17) mg/dL Creatinine (0.52-1.04) mg/dL POC Glucose (mg/dL) 73 L 182 H (75-99) mg/dL Calcium (8.4-10.2) mg/dL Total Bilirubin (0.2-1.3) mg/dL AST (14-36) U/L ALT (4-34) U/L Alkaline Phosphatase (38-126) U/L Total Protein (6.3-8.2) g/dL Albumin (3.5-5.0) g/dL 11/28/19 11/28/19 11/28/19 Range/Units 06:44 07:06 11:58 RBC (3.80-5.40) m/uL Hgb (11.4-16.0) gm/dL Hct (34.0-46.0) % MCV (80.0-100.0) fL MCH (25.0-35.0) pg Plt Count (150-450) k/uL Macrocytosis Sodium 136 L (137-145) mmol/L Chloride 111 H (98-107) mmol/L Carbon Dioxide 21 L (22-30) mmol/L BUN 20 H (7-17) mg/dL Creatinine 1.21 H (0.52-1.04) mg/dL POC Glucose (mg/dL) 117 H 140 H (75-99) mg/dL Calcium 7.2 L (8.4-10.2) mg/dL Total Bilirubin 1.9 H (0.2-1.3) mg/dL AST 75 H (14-36) U/L ALT 36 H (4-34) U/L Alkaline Phosphatase 229 H (38-126) U/L Total Protein 5.2 L (6.3-8.2) g/dL Albumin 2.0 L (3.5-5.0) g/dL Assessment and Plan (1) Hepatic encephalopathy Narrative/Plan: 74-year-old female with history of nonalcoholic liver cirrhosis with decompensation including hepatic encephalopathy and paracentesis requiring large volume paracentesis in the past who presents to the hospital due to altered mental status and confusion in the setting of medication noncompliance. Patient has been treated with chemoembolization on numerous occasions for hepatocellular carcinoma in the past. On current presentation the patient had been admitted to an extended-care facility and refuses lactulose therapy and subsequently suffered worsening mental status. Currently the patient is alert and oriented 3 with no asterixis noted. Current Visit: Yes Status: Acute Priority: High Code(s): K72.90 - HEPATIC FAILURE, UNSPECIFIED WITHOUT COMA SNOMED Code(s): 70959270 (2) Chronic liver disease Current Visit: Yes Status: Acute Code(s): K76.9 - LIVER DISEASE, UNSPECIFIED SNOMED Code(s): 001857718 (3) Hyperbilirubinemia Current Visit: Yes Status: Acute Code(s): E80.6 - OTHER DISORDERS OF BI LIRUBIN METABOLISM SNOMED Code(s): 36155973 (4) History of liver cancer Current Visit: Yes Status: Chronic Priority: Medium Code(s): Z85.05 - PERSONAL HISTORY OF MALIGNANT NEOPLASM OF LIVER SNOMED Code(s): 951732146 (5) Abdominal pain Current Visit: No Status: Acute Priority: High Code(s): R10.9 - UNSPECIFIED ABDOMINAL PAIN SNOMED Code(s): 28947935 (6) Cirrhosis of liver with ascites Current Visit: No Status: Acute Code(s): K74.60 - UNSPECIFIED CIRRHOSIS OF LIVER; R18.8 - OTHER ASCITES SNOMED Code(s): 11020386 (7) Colostomy in place Current Visit: No Status: Acute Code(s): Z93.3 - COLOSTOMY STATUS SNOMED Code(s): 879228638 (8) Hepatic encephalopathy Current Visit: No Status: Acute Code(s): K72.90 - HEPATIC FAILURE, U NSPECIFIED WITHOUT COMA SNOMED Code(s): 86221380 Plan: Supportive care Okay for sodium restricted diet Continue spironolactone therapy Continue lactulose 3 times a day Continue rifaximin twice a day Continue to monitor her mental status Continue Protonix daily Continue dicyclomine for abdominal pain Appreciate recommendations from oncology service, MRI ordered today did show progression of hepatocellular carcinoma, we'll await the recommendations Thank you for allowing us to participate in the care of the patient we will continue to follow
[2019-11-28] MEDS: MORPHINE SULFATE 2 MG/ML SYRINGE IVP PRN (22:51)
[2019-11-29 07:04] LABS: Basophils % (A) 1 %; Eosinophils # (A) 0.3 k/uL (0-0.7); Eosinophils % (A) 9 %; HCT 30.1 % (34.0-46.0); Lymphocytes # (A) 0.9 k/uL (1.0-4.8); Lymphocytes % (A) 25 %; MCH 36.2 pg (25.0-35.0); MCHC 33.1 g/dL (31.0-37.0); MCV 109.2 fL (80.0-100.0); Macrocytosis Marked; Mean Platelet Volume 9.6; Monocytes # (A) 0.3 k/uL (0-1.0); Monocytes % (A) 9 %; Neutrophils % (A) 54 %; RBC 2.76 m/uL (3.80-5.40); RDW 14.6 % (11.5-15.5); WBC 3.7 k/uL (3.8-10.6)
[2019-11-29 07:09] LABS: Albumin 2.1 g/dL (3.5-5.0); Calcium 7.3 mg/dL (8.4-10.2); Potassium 3.6 mmol/L (3.5-5.1); Total Bilirubin 1.8 mg/dL (0.2-1.3); Total Protein 5.6 g/dL (6.3-8.2)
[2019-11-29 07:20] LABS: Platelet Count 69 k/uL (150-450)
[2019-11-29 07:24] LABS: Glucose,Whole Blood 108 mg/dL (75-99)
[2019-11-29] MEDS: INSULIN ASPART (NovoLOG) 100 UNIT/ML VIAL SQ SCH ×4 (07:38→22:17)
[2019-11-29] MEDS: INSULIN REGULAR 100 UNIT/ML VIAL SQ SCH ×3 (09:30→17:25)
[2019-11-29] MEDS: INSULIN NPH 300 UNIT/3 ML VIAL SQ SCH ×2 (09:30→17:25)
[2019-11-29] MEDS: LACTULOSE 20 GM/30 ML CUP PO SCH ×3 (09:30→22:12)
[2019-11-29] MEDS: RIFAXIMIN 550 MG TABLET PO SCH ×2 (09:31→22:11)
[2019-11-29] MEDS: CHOLECALCIFEROL 1,000 UNIT TAB PO SCH (09:31)
[2019-11-29] MEDS: METOPROLOL TARTRATE 12.5 MG TAB PO SCH (09:31)
[2019-11-29] MEDS: CLOTRIMAZOLE TROCHE 10 MG TROCHE MUCOUS MEM SCH ×3 (09:32→22:11)
[2019-11-29] MEDS: DICYCLOMINE 10 MG CAP PO SCH (09:32)
[2019-11-29] MEDS: MORPHINE SULFATE ER 15 MG TABLET PO SCH ×2 (09:32→22:11)
[2019-11-29] MEDS: TORSEMIDE 20 MG TAB PO SCH (09:32)
[2019-11-29] MEDS: buPROPion SR 150 MG TABLET.ER PO SCH (09:33)
[2019-11-29] MEDS: FERROUS SULFATE 325 MG TAB PO SCH ×2 (09:33→22:12)
[2019-11-29] MEDS: PANTOPRAZOLE 40 MG TABLET PO SCH (09:33)
[2019-11-29] MEDS: SPIRONOLACTONE 25 MG TAB PO SCH ×2 (09:34→17:26)
[2019-11-29] MEDS: ISOSORBIDE MONONITRATE ER 30 MG TAB.ER.24H PO SCH (09:34)
[2019-11-29] MEDS: SUCRALFATE 1 GM TAB PO SCH ×4 (09:34→22:11)
--- NOTE | 2019-11-29 10:27 | P.PN ---
Subjective Progress Note Date: 11/29/19 Charlene Keenan is a 74-year-old female with known history of liver cirrhosis and liver cancer who was recently discharged from [facility] to the long-term. Patient did well for a short period of time then she was having mental status changes and decreased consciousness, she was unable to take her oral medications, I was contacted by the long-term in that regard and I asked for the patient to be transferred back to emergency room. In the emergency room patient was unresponsive her ammonia level was elevated at 52 liver enzymes were elevated BUN and creatinine were slightly elevated patient received a lactulose enema in the emergency room and was admitted to medical floor for further evaluation and treatment. This morning patient was alert and oriented 3 in no apparent distress she was complaining of back pain otherwise she denies any complaints, her ammonia level is down to less then 9, liver enzymes are still elevated but better than yesterday, BUN and creatinine are still slightly elevated at 20 and 1.08. During the last admission patient was diagnosed with MRSA pneumonia she was discharged to the long-term on IV vancomycin, at this time consultation for pharmacy to resume dosing vancomycin and consultation for infectious disease Dr. Esparza were initiated. On 11/27/2019 patient is alert and oriented 3. Having increased abdominal pain. Awaiting consult for further management of chronic conditions. Patient remains on IV vancomycin. Vitals have remained stable. Home medications resumed. At this time patient denies chest pain or shortness breath. Patient is having some abdominal cramping. Patient denies any nausea or vomiting. Patient denies any urinary burning or frequency. On 11/28/2019 patient is alert and oriented 3. Patient was evaluated by GI, oncology and infectious disease no further workup at this time. Daily ammonia levels have been ordered. Patient remains oriented. Abdominal pain has improved. Patient remains on vancomycin for MRSA in the sputum per infectious disease. At this time patient denies chest pain. Patient denies nausea vomiting or diarrhea. Patient denies any urinary burning or frequency On 11/29/2019 patient is alert and oriented 3. Patient did undergo liver MRI yesterday per oncology ordered. Results discussed with oncology Dr. odell. No plans for further workup inpatient. Patient remains on vancomycin until discharge per ID patient does not need to be discharged on IV antibiotics. Patient denies any chest pain or shortness of breath. Denies nausea vomiting or diarrhea. Patient denies any urinary burning or frequency. Objective - Vital Signs Vital signs: Vital Signs Temp 97.6 F 11/29/19 08:05 Pulse 69 11/29/19 08:05 Resp 17 11/29/19 08:05 BP 94/50 11/29/19 08:05 Pulse Ox 98 11/29/19 08:05 Intake & Output 11/28/19 11/29/19 11/29/19 18:59 06:59 18:59 Intake Total 250 Output Total 1200 400 500 Balance -1200 -400 -250 Intake: Oral 250 Output: Urine 300 Stool 1200 400 200 Other: Voiding Method Bedside Commode Diaper # Voids 3 1 # Bowel Movements 4 - Exam At this time patient is alert and oriented 3 answering questions appropriately HEENT head normocephalic and atraumatic Neck is supple no JVD no goiter no lymphadenopathy Chest exam reveals a few scattered crackles no wheezing Cardiac exam reveals regular heart sounds no gallops no murmurs Abdomen is soft nontender no organomegaly slightly distended with ascites with normal bowel sounds Extremity exam reveals no edema no cyanosis or clubbing Neurological examination reveals no gross focal deficit at this time - Labs CBC & Chem 7: 11/29/19 06:39 11/29/19 06:39 Labs: Abnormal Lab Results - Last 24 Hours (Table) 11/28/19 11/28/19 11/28/19 Range/Units 06:44 11:58 16:39 WBC (3.8-10.6) k/uL RBC (3.80-5.40) m/uL Hgb (11.4-16.0) gm/dL Hct (34.0-46.0) % MCV (80.0-100.0) fL MCH (25.0-35.0) pg Plt Count 63 L (150-450) k/uL Lymphocytes # (1.0-4.8) k/uL Macrocytosis Chloride (98-107) mmol/L Carbon Dioxide (22-30) mmol/L BUN (7-17) mg/dL Creatinine (0.52-1.04) mg/dL Glucose (74-99) mg/dL POC Glucose (mg/dL) 140 H 119 H (75-99) mg/dL Calcium (8.4-10.2) mg/dL Total Bilirubin (0.2-1.3) mg/dL AST (14-36) U/L ALT (4-34) U/L Alkaline Phosphatase (38-126) U/L Ammonia (<30) umol/L Total Protein (6.3-8.2) g/dL Albumin (3.5-5.0) g/dL 11/28/19 11/29/19 11/29/19 Range/Units 19:37 06:39 06:39 WBC 3.7 L (3.8-10.6) k/uL RBC 2.76 L (3.80-5.40) m/uL Hgb 10.0 L (11.4-16.0) gm/dL Hct 30.1 L (34.0-46.0) % MCV 109.2 H (80.0-100.0) fL MCH 36.2 H (25.0-35.0) pg Plt Count 69 L (150-450) k/uL Lymphocytes # 0.9 L (1.0-4.8) k/uL Macrocytosis Marked A Chloride 111 H (98-107) mmol/L Carbon Dioxide 21 L (22-30) mmol/L BUN 18 H (7-17) mg/dL Creatinine 1.31 H (0.52-1.04) mg/dL Glucose 107 H (74-99) mg/dL POC Glucose (mg/dL) 163 H (75-99) mg/dL Calcium 7.3 L (8.4-10.2) mg/dL Total Bilirubin 1.8 H (0.2-1.3) mg/dL AST 69 H (14-36) U/L ALT 37 H (4-34) U/L Alkaline Phosphatase 260 H (38-126) U/L Ammonia (<30) umol/L Total Protein 5.6 L (6.3-8.2) g/dL Albumin 2.1 L (3.5-5.0) g/dL 11/29/19 11/29/19 Range/Units 06:39 07:12 WBC (3.8-10.6) k/uL RBC (3.80-5.40) m/uL Hgb (11.4-16.0) gm/dL Hct (34.0-46.0) % MCV (80.0-100.0) fL MCH (25.0-35.0) pg Plt Count (150-450) k/uL Lymphocytes # (1.0-4.8) k/uL Macrocytosis Chloride (98-107) mmol/L Carbon Dioxide (22-30) mmol/L BUN (7-17) mg/dL Creatinine (0.52-1.04) mg/dL Glucose (74-99) mg/dL POC Glucose (mg/dL) 108 H (75-99) mg/dL Calcium (8.4-10.2) mg/dL Total Bilirubin (0.2-1.3) mg/dL AST (14-36) U/L ALT (4-34) U/L Alkaline Phosphatase (38-126) U/L Ammonia 42 H (<30) umol/L Total Protein (6.3-8.2) g/dL Albumin (3.5-5.0) g/dL Assessment and Plan Assessment: #1 altered mental status, multifactorial related to pain medications and liver cirrhosis, improved significantly since yesterday with holding pain medications and giving lactulose enema. At this time oral lactulose was restarted, patient is complaining of severe pain she will be restarted on morphine as she is ALLERGIC to hydromorphone and oxycodone, will monitor mental function closely. Mentation has improved patient back to baseline #2 underlying history of liver cirrhosis, with recurrent ascites, maintained on frequent paracentesis, oral lactulose, oral diuretics and oral beta blockers. Per GI services continue Aldactone, lactulose 3 times a day. Xifaxan added continue Bentyl and Protonix for abdominal discomfort. Daily ammonia levels have been ordered #3 underlying history of liver cancer, seen in the past by oncology Will consult oncology again to reassess. Per oncology service is patient has either canceled or no showed for 7 appointments outpatient no evidence at this time to suggest recurrent HCC. Patient may need further workup of duodenal thickening on recent CT per oncology. MRI of the liver completed showing interval growth and patient's hepatocellular carcinoma. Ascites and evidence of portal hypertension with varices as described indeterminate abnormal attenuation at the lung bases on the left greater than right may be due to atelectatic change is improved compared to prior CT the right-sided hydronephrosis is mild. These findings were discussed with oncology team. No further workup inpatient. per oncology will discuss with patient #4 underlying history of chronic back pain, requiring narcotic use #5 underlying history of anxiety disorder and depression, maintained on bupropion and Klonopin #6 recent history of pneumonia was methicillin-resistant Staphylococcus aureus, restart IV vancomycin, consult infectious disease. Tinea IV Vanco during hospitalization per ID patient will likely not require any further IV vancomycin upon discharge #7 underlying history of chronic kidney disease stage III #8 underlying history of diabetes mellitus type 2 requiring insulin #9 underlying history of thrombocytopenia related to liver cirrhosis, currently platelet count is 67,000 Will monitor closely hematology and gastroenterology consult are in progress. DVT prophylaxis we will use SCD stockings and avoid anticoagulation due to thrombocytopenia GI prophylaxis patient is on Protonix Infectious disease, oncology and GI services following I performed an examination of the patient and discussed their management with the Nurse Practitioner. I have reviewed the Nurse Practitioner's notes and agree with the documented findings and plan of care
[2019-11-29 12:15] LABS: Glucose,Whole Blood 170 mg/dL (75-99)
[2019-11-29 16:38] LABS: Glucose,Whole Blood 121 mg/dL (75-99)
[2019-11-29] MEDS: VANCOMYCIN 1,500 MG in SODIUM CHLORIDE 0.9% 250 ML IVPB SCH (17:27)
--- NOTE | 2019-11-29 18:06 | P.PN ---
Subjective Progress Note Date: 11/29/19 Principal diagnosis: AMS, hepatic encephalopathy In f/u today pt asleep, easily aroused. Patient states she is excited to be going home tomorrow. She is not going to go back to ECF/rehabilitation. She feels much better than on admission, she is doing her best to get around on her own, she has no acute or progressive complaints on a 10 point review of systems at this time. Objective - Vital Signs Vital signs: Vital Signs Temp 97.0 F L 11/29/19 15:00 Pulse 60 11/29/19 15:39 Resp 18 11/29/19 15:39 BP 103/53 11/29/19 15:00 Pulse Ox 94 L 11/29/19 15:00 Intake & Output 11/28/19 11/29/19 11/29/19 18:59 06:59 18:59 Intake Total 730 Output Total 4200 570 1316 Balance -1200 -400 -870 Intake: Oral 730 Output: Urine 600 Stool 0636 238 5654 Other: Voiding Method Bedside Commode Bedside Commode Diaper Diaper # Voids 3 1 2 # Bowel Movements 4 - Constitutional Constitutional Comment(s): Thinning, cachetic General appearance: Present: cooperative - EENT Eyes: Present: anicteric sclerae, EOMI ENT: Present: hearing grossly normal - Respiratory Details: respirations even and unlabored - Cardiovascular Details: skin warm and dry, radial pulse 2+ - Gastrointestinal General gastrointestinal: Present: soft - Neurologic Neurologic: Present: CNII-XII intact - Musculoskeletal Musculoskeletal: Present: generalized weakness, strength equal bilaterally - Psychiatric Psychiatric: Present: A&O x's 3, appropriate affect, intact judgment & insight - Labs CBC & Chem 7: 11/29/19 06:39 11/29/19 06:39 Labs: Abnormal Lab Results - Last 24 Hours (Table) 11/28/19 11/29/19 11/29/19 Range/Units 19:37 06:39 06:39 WBC 3.7 L (3.8-10.6) k/uL RBC 2.76 L (3.80-5.40) m/uL Hgb 10.0 L (11.4-16.0) gm/dL Hct 30.1 L (34.0-46.0) % MCV 109.2 H (80.0-100.0) fL MCH 36.2 H (25.0-35.0) pg Plt Count 69 L (150-450) k/uL Lymphocytes # 0.9 L (1.0-4.8) k/uL Macrocytosis Marked A Chloride 111 H (98-107) mmol/L Carbon Dioxide 21 L (22-30) mmol/L BUN 18 H (7-17) mg/dL Creatinine 1.31 H (0.52-1.04) mg/dL Glucose 107 H (74-99) mg/dL POC Glucose (mg/dL) 163 H (75-99) mg/dL Calcium 7.3 L (8.4-10.2) mg/dL Total Bilirubin 1.8 H (0.2-1.3) mg/dL AST 69 H (14-36) U/L ALT 37 H (4-34) U/L Alkaline Phosphatase 260 H (38-126) U/L Ammonia (<30) umol/L Total Protein 5.6 L (6.3-8.2) g/dL Albumin 2.1 L (3.5-5.0) g/dL 11/29/19 11/29/19 11/29/19 Range/Units 06:39 07:12 12:03 WBC (3.8-10.6) k/uL RBC (3.80-5.40) m/uL Hgb (11.4-16.0) gm/dL Hct (34.0-46.0) % MCV (80.0-100.0) fL MCH (25.0-35.0) pg Plt Count (150-450) k/uL Lymphocytes # (1.0-4.8) k/uL Macrocytosis Chloride (98-107) mmol/L Carbon Dioxide (22-30) mmol/L BUN (7-17) mg/dL Creatinine (0.52-1.04) mg/dL Glucose (74-99) mg/dL POC Glucose (mg/dL) 108 H 170 H (75-99) mg/dL Calcium (8.4-10.2) mg/dL Total Bilirubin (0.2-1.3) mg/dL AST (14-36) U/L ALT (4-34) U/L Alkaline Phosphatase (38-126) U/L Ammonia 42 H (<30) umol/L Total Protein (6.3-8.2) g/dL Albumin (3.5-5.0) g/dL 11/29/19 Range/Units 16:27 WBC (3.8-10.6) k/uL RBC (3.80-5.40) m/uL Hgb (11.4-16.0) gm/dL Hct (34.0-46.0) % MCV (80.0-100.0) fL MCH (25.0-35.0) pg Plt Count (150-450) k/uL Lymphocytes # (1.0-4.8) k/uL Macrocytosis Chloride (98-107) mmol/L Carbon Dioxide (22-30) mmol/L BUN (7-17) mg/dL Creatinine (0.52-1.04) mg/dL Glucose (74-99) mg/dL POC Glucose (mg/dL) 121 H (75-99) mg/dL Calcium (8.4-10.2) mg/dL Total Bilirubin (0.2-1.3) mg/dL AST (14-36) U/L ALT (4-34) U/L Alkaline Phosphatase (38-126) U/L Ammonia (<30) umol/L Total Protein (6.3-8.2) g/dL Albumin (3.5-5.0) g/dL - Imaging and Cardiology MRI - abdomen: report reviewed Assessment and Plan (1) Hepatic encephalopathy Narrative/Plan: Ammonia level 52 on admit, WNL now, being treated with lactulose. Pt mental status is improved Current Visit: Yes Status: Acute Priority: High Code(s): K72.90 - HEPATIC FAILURE, UNSPECIFIED WITHOUT COMA SNOMED Code(s): 09963399 (2) Hepatocellular carcinoma Narrative/Plan: Reviewed MRI results with the patient. It does appear that the liver mass has increased in size. Recommended to patient that she follow-up with the [facility] who provided her with chemotherapy embolization because it seems as though this could be an appropriate form of therapy for her (pt cancels, forgets and does not show up for appts). Requested CD of MRI to be copied and given to patient on discharge, she is aware. I encouraged patient that she needs to make and go to follow up appointments with physicians so that she can have proper treatment. She verbalized understanding. Patient has exceeded no call no show policy at our office. She has been seen at [facility] in the past, I encouraged her to contact that Oncologist to see if she can be seen there. Current Visit: No Status: Chronic Priority: Medium Code(s): C22.0 - LIVER CELL CARCINOMA SNOMED Code(s): 694053701 (3) Thrombocytopenia Narrative/Plan: Stable at this time. Due to liver disease and likely splenic sequestration and destruction. Current Visit: No Status: Chronic Priority: Medium Code(s): D69.6 - THROMBOCYTOPENIA, UNSPECIFIED SNOMED Code(s): 125371344
[2019-11-29 21:19] LABS: Hemoglobin A1C 5.1 % (4.0-6.0)
[2019-11-29 22:15] LABS: Glucose,Whole Blood 145 mg/dL (75-99)
--- NOTE | 2019-11-29 22:49 | P.PN ---
Subjective Progress Note Date: 11/29/19 Principal diagnosis: Decompensated nonalcoholic cirrhosis, hepatocellular carcinoma, hepatic encephalopathy Patient is seen sitting bedside, tolerating her diet. No abdominal pain reported. No nausea or vomiting. No signs or symptoms of GI bleed. Objective - Vital Signs Vital signs: Vital Signs Temp 98.9 F 11/29/19 19:25 Pulse 93 11/29/19 19:25 Resp 18 11/29/19 19:25 BP 111/53 11/29/19 19:25 Pulse Ox 93 L 11/29/19 19:25 Intake & Output 11/29/19 11/29/19 11/30/19 06:59 18:59 06:59 Intake Total 730 Output Total 400 1600 Balance -400 -870 Intake: Oral 730 Output: Urine 600 Stool 400 1000 Other: Voiding Method Bedside Commode Bedside Commode Diaper Diaper # Voids 1 2 - Exam On physical examination, patient appears comfortable in no apparent distress. HEAD: Normocephalic, atraumatic. EYES: No scleral icterus. No conjunctival injection. MOUTH: No lesions, tongue midline. NECK: Trachea midline, no gross abnormalities. ABDOMEN: Soft, obese right-sided abdominal ostomy noted with good stool output. Bowel sounds are positive. No organomegaly. No guarding or rigidity. EXTREMITIES: No pedal edema. SKIN: No rashes, no jaundice. NEUROLOGIC: Alert and oriented x3, no asterixis. No focal deficits. - Labs CBC & Chem 7: 11/29/19 06:39 11/29/19 06:39 Labs: Abnormal Lab Results - Last 24 Hours (Table) 11/29/19 11/29/19 11/29/19 Range/Units 06:39 06:39 06:39 WBC 3.7 L (3.8-10.6) k/uL RBC 2.76 L (3.80-5.40) m/uL Hgb 10.0 L (11.4-16.0) gm/dL Hct 30.1 L (34.0-46.0) % MCV 109.2 H (80.0-100.0) fL MCH 36.2 H (25.0-35.0) pg Plt Count 69 L (150-450) k/uL Lymphocytes # 0.9 L (1.0-4.8) k/uL Macrocytosis Marked A Chloride 111 H (98-107) mmol/L Carbon Dioxide 21 L (22-30) mmol/L BUN 18 H (7-17) mg/dL Creatinine 1.31 H (0.52-1.04) mg/dL Glucose 107 H (74-99) mg/dL POC Glucose (mg/dL) (75-99) mg/dL Calcium 7.3 L (8.4-10.2) mg/dL Total Bilirubin 1.8 H (0.2-1.3) mg/dL AST 69 H (14-36) U/L ALT 37 H (4-34) U/L Alkaline Phosphatase 260 H (38-126) U/L Ammonia 42 H (<30) umol/L Total Protein 5.6 L (6.3-8.2) g/dL Albumin 2.1 L (3.5-5.0) g/dL 11/29/19 11/29/19 11/29/19 Range/Units 07:12 12:03 16:27 WBC (3.8-10.6) k/uL RBC (3.80-5.40) m/uL Hgb (11.4-16.0) gm/dL Hct (34.0-46.0) % MCV (80.0-100.0) fL MCH (25.0-35.0) pg Plt Count (150-450) k/uL Lymphocytes # (1.0-4.8) k/uL Macrocytosis Chloride (98-107) mmol/L Carbon Dioxide (22-30) mmol/L BUN (7-17) mg/dL Creatinine (0.52-1.04) mg/dL Glucose (74-99) mg/dL POC Glucose (mg/dL) 108 H 170 H 121 H (75-99) mg/dL Calcium (8.4-10.2) mg/dL Total Bilirubin (0.2-1.3) mg/dL AST (14-36) U/L ALT (4-34) U/L Alkaline Phosphatase (38-126) U/L Ammonia (<30) umol/L Total Protein (6.3-8.2) g/dL Albumin (3.5-5.0) g/dL 11/29/19 Range/Units 22:04 WBC (3.8-10.6) k/uL RBC (3.80-5.40) m/uL Hgb (11.4-16.0) gm/dL Hct (34.0-46.0) % MCV (80.0-100.0) fL MCH (25.0-35.0) pg Plt Count (150-450) k/uL Lymphocytes # (1.0-4.8) k/uL Macrocytosis Chloride (98-107) mmol/L Carbon Dioxide (22-30) mmol/L BUN (7-17) mg/dL Creatinine (0.52-1.04) mg/dL Glucose (74-99) mg/dL POC Glucose (mg/dL) 145 H (75-99) mg/dL Calcium (8.4-10.2) mg/dL Total Bilirubin (0.2-1.3) mg/dL AST (14-36) U/L ALT (4-34) U/L Alkaline Phosphatase (38-126) U/L Ammonia (<30) umol/L Total Protein (6.3-8.2) g/dL Albumin (3.5-5.0) g/dL Assessment and Plan (1) Hepatic encephalopathy Narrative/Plan: 74-year-old female with history of nonalcoholic liver cirrhosis with decompensation including hepatic encephalopathy and paracentesis requiring large volume paracentesis in the past who presents to the hospital due to altered mental status and confusion in the setting of medication noncompliance. Patient has been treated with chemoembolization on numerous occasions for hepatocellular carcinoma in the past. On current presentation the patient had been admitted to an extended-care facility and refuses lactulose therapy and subsequently suffered worsening mental status. Currently the patient is alert and oriented 3 with no asterixis noted. Current Visit: Yes Status: Acute Priority: High Code(s): K72.90 - HEPATIC FAILURE, UNSPECIFIED WITHOUT COMA SNOMED Code(s): 40226187 (2) Chronic liver disease Current Visit: Yes Status: Acute Code(s): K76.9 - LIVER DISEASE, UNSPECIFIED SNOMED Code(s): 200850022 (3) Hyperbilirubinemia Current Visit: Yes Status: Acute Code(s): E80.6 - OTHER DISORDERS OF BILIRUBIN METABOLISM SNOMED Code(s): 30536967 (4) History of liver cancer Current Visit: Yes Status: Chronic Priority: Medium Code(s): Z85.05 - PERSONAL HISTORY OF MALIGNANT NEOPLASM OF LIVER SNOMED Code(s): 051703406 (5) Abdominal pain Current Visit: No Status: Acute Priority: High Code(s): R10.9 - UNSPECIFIED ABDOMINAL PAIN SNOMED Code(s): 68074405 (6) Cirrhosis of liver with ascites Current Visit: No Status: Acute Code(s): K74.60 - UNSPECIFIED CIRRHOSIS OF LIVER; R18.8 - OTHER ASCITES SNOMED Code(s): 44616288 (7) Colostomy in place Current Visit: No Status: Acute Code(s): Z93.3 - COLOSTOMY STATUS SNOMED Code(s): 854583851 (8) Hepatic encephalopathy Current Visit: No Status: Acute Code(s): K72.90 - HEPATIC FAILURE, UNSPECIFIED WITHOUT COMA SNOMED Code(s): 88121757 Plan: Supportive care Okay for sodium restricted diet Continue spironolactone therapy Continue lactulose 3 times a day Continue rifaximin twice a day Continue to monitor her mental status Continue Protonix daily Continue dicyclomine for abdominal pain Appreciate recommendations from oncology service, MRI ordered did show progression of hepatocellular carcinoma, with recommendations per oncology service of follow-up in the outpatient setting with hepatology and possible further treatments with chemoembolization forward Thank you for allowing us to participate in the care of the patient
[2019-11-30] MEDS: MORPHINE SULFATE 2 MG/ML SYRINGE IVP PRN (01:23)
--- NOTE | 2019-11-30 05:23 | PN ---
PROGRESS NOTE DATE OF SERVICE: 11/29/2019 REASON FOR FOLLOWUP: MRSA pneumonia. INTERVAL HISTORY: The patient is currently afebrile. Patient is breathing comfortably. The patient denies having any chest pain. No significant cough or sputum production. No worsening abdominal pain. No nausea or vomiting. No new symptoms. PHYSICAL EXAMINATION: Blood pressure is 111/53 with a pulse of 93, temperature 98.9. She is 93% on room air. General description is an elderly female up in the chair in no distress. RESPIRATORY SYSTEM: Unlabored breathing, decreased breath sounds in the bases. No wheeze. HEART: S1, S2. Regular rate and rhythm. ABDOMEN: Soft, no tenderness. LABS: BUN of 18, creatinine 1.31 wound. Hemoglobin is 10, white count 3.7. DIAGNOSTIC IMPRESSION AND PLAN: Patient with methicillin-resistant Staphylococcus aureus pneumonia that has been adequately treated. Patient has received more than 2 weeks of IV vancomycin and can be discontinued on discharge. Will monitor clinical course closely. MMODL / IJN: [id number] /
[2019-11-30 07:02] LABS: Glucose,Whole Blood 69 mg/dL (75-99)
[2019-11-30 07:17] LABS: Glucose,Whole Blood 93 mg/dL (75-99)
[2019-11-30 07:29] LABS: Basophils % (A) 1 %; Eosinophils # (A) 0.4 k/uL (0-0.7); Eosinophils % (A) 10 %; HCT 31.9 % (34.0-46.0); HGB 10.8 gm/dL (11.4-16.0); Lymphocytes # (A) 1.1 k/uL (1.0-4.8); Lymphocytes % (A) 28 %; MCH 36.6 pg (25.0-35.0); MCHC 33.7 g/dL (31.0-37.0); MCV 108.5 fL (80.0-100.0); Macrocytosis Marked; Mean Platelet Volume 9.9; Monocytes # (A) 0.3 k/uL (0-1.0); Monocytes % (A) 8 %; Neutrophils # (A) 1.9 k/uL (1.3-7.7); Neutrophils % (A) 50 %; RBC 2.94 m/uL (3.80-5.40); RDW 14.6 % (11.5-15.5); WBC 3.9 k/uL (3.8-10.6)
[2019-11-30 07:32] LABS: Platelet Count 73 k/uL (150-450)
[2019-11-30] MEDS: INSULIN ASPART (NovoLOG) 100 UNIT/ML VIAL SQ SCH (07:33)
[2019-11-30] MEDS: INSULIN REGULAR 100 UNIT/ML VIAL SQ SCH (07:34)
[2019-11-30] MEDS: INSULIN NPH 300 UNIT/3 ML VIAL SQ SCH (07:34)
[2019-11-30 07:52] LABS: Albumin 2.3 g/dL (3.5-5.0); Calcium 7.4 mg/dL (8.4-10.2); Potassium 3.4 mmol/L (3.5-5.1); Total Bilirubin 2.3 mg/dL (0.2-1.3); Total Protein 6.1 g/dL (6.3-8.2)
[2019-11-30 08:28] VITALS: BP 115/66; PULSE 69; RESP 18; TEMP 98.1
[2019-11-30] MEDS ORDERED: Potassium Replacement Protocol 1 EACH MISC MISCELLANE PRN (08:32)
[2019-11-30] MEDS ORDERED: POTASSIUM CHLORIDE ER 20 MEQ TAB.ER PO SCH ×2 (09:00→10:00)
[2019-11-30] MEDS: LACTULOSE 20 GM/30 ML CUP PO SCH (09:02)
[2019-11-30] MEDS: buPROPion SR 150 MG TABLET.ER PO SCH (09:03)
[2019-11-30] MEDS: PANTOPRAZOLE 40 MG TABLET PO SCH (09:03)
[2019-11-30] MEDS: CLOTRIMAZOLE TROCHE 10 MG TROCHE MUCOUS MEM SCH (09:03)
[2019-11-30] MEDS: RIFAXIMIN 550 MG TABLET PO SCH (09:03)
[2019-11-30] MEDS: MORPHINE SULFATE ER 15 MG TABLET PO SCH (09:04)
[2019-11-30] MEDS: DICYCLOMINE 10 MG CAP PO SCH (09:04)
[2019-11-30] MEDS: METOPROLOL TARTRATE 12.5 MG TAB PO SCH (09:04)
[2019-11-30] MEDS: CHOLECALCIFEROL 1,000 UNIT TAB PO SCH (09:04)
[2019-11-30] MEDS: FERROUS SULFATE 325 MG TAB PO SCH (09:04)
[2019-11-30] MEDS: SPIRONOLACTONE 25 MG TAB PO SCH (09:05)
[2019-11-30] MEDS: ISOSORBIDE MONONITRATE ER 30 MG TAB.ER.24H PO SCH (09:05)
[2019-11-30] MEDS: SUCRALFATE 1 GM TAB PO SCH (09:05)
[2019-11-30] MEDS: TORSEMIDE 20 MG TAB PO SCH (09:06)
--- NOTE | 2019-11-30 10:19 | P.DS ---
Providers Date of admission: 11/25/19 14:52 Expected date of discharge: 11/30/19 Attending physician: Artemio Lea Consults: 11/26/19 14:14 Consult Physician Routine Consulting Provider: Jaylene Esparza Consult Reason/Comments: history of pneumonia Do you want consulting provider notified?: Yes 11/26/19 14:21 Consult Physician Routine Consulting Provider: Cem Estrada Consult Reason/Comments: liver ca Do you want consulting provider notified?: Yes 11/26/19 14:23 Consult Physician Routine Consulting Provider: Carley Valverde Consult Reason/Comments: liver cirrhosis Do you want consulting provider notified?: Yes Primary care physician: Artemio Leonora [facility] Course: Discharge diagnosis #1 altered mental status, multifactorial related to pain medications and liver cirrhosis, improved significantly since yesterday with holding pain medications and giving lactulose enema. At this time oral lactulose was restarted, patient is complaining of severe pain she will be restarted on morphine as she is ALLERGIC to hydromorphone and oxycodone, will monitor mental function closely. Mentation has improved patient back to baseline #2 underlying history of liver cirrhosis, with recurrent ascites, maintained on frequent paracentesis, oral lactulose, oral diuretics and oral beta blockers. Per GI services continue Aldactone, lactulose 3 times a day. Xifaxan added continue Bentyl and Protonix for abdominal discomfort. Daily ammonia levels have been ordered. Ammonia level at discharge 31. Patient educated to resume lactulose and follow-up GI services repeat ammonia level ordered on discharge #3 underlying history of liver cancer, seen in the past by oncology Will consult oncology again to reassess. Per oncology service is patient has either canceled or no showed for 7 appointments outpatient no evidence at this time to suggest recurrent HCC. Patient may need further workup of duodenal thickening on recent CT per oncology. MRI of the liver completed showing interval growth and patient's hepatocellular carcinoma. Ascites and evidence of portal hypertension with varices as described indeterminate abnormal attenuation at the lung bases on the left greater than right may be due to atelectatic change is improved compared to prior CT the right-sided hydronephrosis is mild. 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 Per oncology CD of MRI to be copied and given to patient at discharge patient verbally understands the importance of following up with oncology services for further management #4 underlying history of chronic back pain, requiring narcotic use #5 underlying history of anxiety disorder and depression, maintained on bupropion and Klonopin #6 recent history of pneumonia was methicillin-resistant Staphylococcus aureus, restart IV vancomycin, consult infectious disease. IV Vanco during hospitalization per ID patient will likely not require any further IV vancomycin upon discharge. Per infectious disease patient has received more than 2 weeks of IV vancomycin and can be discontinued upon discharge #7 underlying history of chronic kidney disease stage III #8 underlying history of diabetes mellitus type 2 requiring insulin #9 underlying history of thrombocytopenia related to liver cirrhosis, currently platelet count is 67,000 Will monitor closely hematology and gastroenterology consult are in progress. Hospital course Charlene Keenan is a 74-year-old female with known history of liver cirrhosis and liver cancer who was recently discharged from [facility] jail. Patient did well for a short period of time then she was having mental status changes and decreased consciousness, she was unable to take her oral medications, I was contacted by the jail in that regard and I asked for the patient to be transferred back to emergency room. In the emergency room patient was unresponsive her ammonia level was elevated at 52 liver enzymes were elevated BUN and creatinine were slightly elevated patient received a lactulose enema in the emergency room and was admitted to medical floor for further evaluation and treatment. This morning patient was alert and oriented 3 in no apparent distress she was complaining of back pain otherwise she denies any complaints, her ammonia level is down to less then 9, liver enzymes are still elevated but better than yesterday, BUN and creatinine are still slightly elevated at 20 and 1.08. During the last admission patient was diagnosed with MRSA pneumonia she was discharged to the jail on IV vancomycin, at this time consultation for pharmacy to resume dosing vancomycin and consultation for infectious disease Dr. Esparza were initiated. On 11/27/2019 patient is alert and oriented 3. Having increased abdominal pain. Awaiting consult for further management of chronic conditions. Patient remains on IV vancomycin. Vitals have remained stable. Home medications resumed. At this time patient denies chest pain or shortness breath. Patient is having some abdominal cramping. Patient denies any nausea or vomiting. Patient denies any urinary burning or frequency. On 11/28/2019 patient is alert and oriented 3. Patient was evaluated by GI, oncology and infectious disease no further workup at this time. Daily ammonia levels have been ordered. Patient remains oriented. Abdominal pain has improved. Patient remains on vancomycin for MRSA in the sputum per infectious disease. At this time patient denies chest pain. Patient denies nausea vomiting or diarrhea. Patient denies any urinary burning or frequency On 11/29/2019 patient is alert and oriented 3. Patient did undergo liver MRI yesterday per oncology ordered. Results discussed with oncology Dr. estrada. No plans for further workup inpatient. Patient remains on vancomycin until disc harge per ID patient does not need to be discharged on IV antibiotics. Patient denies any chest pain or shortness of breath. Denies nausea vomiting or diarrhea. Patient denies any urinary burning or frequency. On 11/30/2019 patient is alert and oriented 3. Patient is very eager to go home. MRI results were reviewed with patient per oncology. Patient verbalized understanding the importance of following up with oncology services for further management. Ammonia level at discharge 31 patient is alert and oriented and back to baseline. Patient educated on the importance of taking her lactulose. At this time patient denies chest pain or shortness of breath. Patient denies nausea vomiting or diarrhea. Patient denies any urinary burning or frequency I performed an examination of the patient and discussed their management with the Nurse Practitioner. I have reviewed the Nurse Practitioner's notes and agree with the documented findings and plan of care Patient Condition at Discharge: Stable Plan - Discharge Summary Discharge Rx Participant: Yes New Discharge Prescriptions: New Lactulose [Cephulac] 30 gm PO TID 7 Days #1000 ml Clotrimazole Hayden [Mycelex Hayden] 10 mg MUCOUS MEM TID 7 Days #21 hayden Continue Sucralfate [Carafate] 1 gm PO ACHS Omeprazole [PriLOSEC] 20 mg PO DAILY Insulin Regular, Human [NovoLIN R] 10 unit SQ AC-TID Cholecalciferol [Vitamin D3 (25 Mcg = 1000 Iu)] 2,000 unit PO DAILY Ferrous Sulfate [Iron (65 MG Elemental)] 325 mg PO BID Morphine Sulfate [Ms Contin] 15 mg PO BID buPROPion HCL [Wellbutrin SR] 150 mg PO DAILY clonazePAM [KlonoPIN] 0.5 mg PO BID@0800,1999 Dicyclomine [Bentyl] 10 mg PO DAILY Insulin NPH Human Isophane [NovoLIN N] 18 unit SQ AC-BID Metoprolol Tartrate [Lopressor] 6.25 mg PO DAILY tab Torsemide [Demadex] 20 mg PO DAILY tab Mag Hydrox/Al Hydrox/Simeth [Maalox] 30 ml PO TID cup Isosorbide Mononitrate ER [Imdur] 30 mg PO DAILY@0800 Spironolactone [Aldactone] 25 mg PO BID@0800,1600 Discontinued Lactulose [Cephulac] 26 gm PO DAILY Vancomycin 1,000 mg IVPB Q16H 7 Days #7 vial Acetaminophen Tab [Tylenol Tab] 650 mg PO Q8H PRN PRN Reason: Pain Discharge Medication List Omeprazole [PriLOSEC] 20 mg PO DAILY 10/23/18 [History] Sucralfate [Carafate] 1 gm PO ACHS 10/23/18 [History] Insulin Regular, Human [NovoLIN R] 10 unit SQ AC-TID 10/24/18 [History] Cholecalciferol [Vitamin D3 (25 Mcg = 1000 Iu)] 2,000 unit PO DAILY 01/16/19 [History] Ferrous Sulfate [Iron (65 MG Elemental)] 325 mg PO BID 01/31/19 [History] Morphine Sulfate [Ms Contin] 15 mg PO BID 05/15/19 [History] buPROPion HCL [Wellbutrin SR] 150 mg PO DAILY 06/12/19 [History] clonazePAM [KlonoPIN] 0.5 mg PO BID@0800,199906/12/19 [History] Dicyclomine [Bentyl] 10 mg PO DAILY 10/02/19 [History] Insulin NPH Human Isophane [NovoLIN N] 18 unit SQ AC-BID 10/02/19 [History] Metoprolol Tartrate [Lopressor] 6.25 mg PO DAILY tab 10/04/19 [Rx] Mag Hydrox/Al Hydrox/Simeth [Maalox] 30 ml PO TID cup 11/21/19 [Rx] Torsemide [Demadex] 20 mg PO DAILY tab 11/21/19 [Rx] Isosorbide Mononitrate ER [Imdur] 30 mg PO DAILY@0800 11/25/19 [History] Spironolactone [Aldactone] 25 mg PO BID@0800,1600 11/25/19 [History] Clotrimazole Hayden [Mycelex Hayden] 10 mg MUCOUS MEM TID 7 Days #21 hayden 11/30/19 [Rx] Lactulose [Cephulac] 30 gm PO TID 7 Days #1000 ml 11/30/19 [Rx] Follow up Appointment(s)/Referral(s): Cem Estrada MD [STAFF PHYSICIAN] - 1 Week Ananth Francois MD [STAFF PHYSICIAN] - 1 Week Ambulatory/Diagnostic Orders: Comprehensive Metabolic Panel [LAB.AMB] Location: None Selected Activity/Diet/Wound Care/Special Instructions: Activity as tolerated Diet heart healthy consistent carb Patient advised the importance of following up with previous oncologist in regards to MRI results Discharge Disposition: HOME SELF-CARE
[2019-11-30 11:57] LABS: Glucose,Whole Blood 250 mg/dL (75-99)
--- NOTE | 2019-11-30 13:50 | PN ---
PROGRESS NOTE DATE OF SERVICE: 12/01/2019 REASON FOR FOLLOWUP: MRSA pneumonia. INTERVAL HISTORY: The patient was seen on rounds this morning. The patient has been afebrile. She has been breathing comfortably. Denies having any chest pain, cough. No nausea, no vomiting. No abdominal pain and no diarrhea. PHYSICAL EXAMINATION: Blood pressure 115/66, pulse of 69, temperature 98.1, she is 91% on room air. General description is an elderly female, lying in bed, in no distress. RESPIRATORY SYSTEM: Unlabored breathing. Decreased breath sounds, no wheeze. HEART: S1, S2. Regular rate and rhythm. ABDOMEN: Soft, no tenderness. LABS: Hemoglobin is 10.1, white count of 8.1. BUN of 18, creatinine 1.36. DIAGNOSTIC IMPRESSION AND PLAN: Patient with MRSA pneumonia that has been adequately treated. There is no need for any antibiotic on discharge, has been discussed in detail with the admitting team. PICC line is continuing for discharge and continue supportive care. MMODL / IJN: [id number] /
== END 2019-11-30 12:50 | disposition home or self-care (01) | DRG 441 ==
LOC: EC 13:10 → 4SSUR 14:52
PROVIDERS: ADMIT Internal Medicine; ATTEND Internal Medicine
DX: K71.10 Toxic liver disease with hepatic necrosis, without coma (principal); J15.212 Pneumonia due to Methicillin resistant Staphylococcus aureus; C22.0 Liver cell carcinoma; K76.6 Portal hypertension; R18.8 Other ascites; R64 Cachexia; T40.2X5A Adverse effect of other opioids, initial encounter; D69.59 Other secondary thrombocytopenia; E11.22 Type 2 diabetes mellitus with diabetic chronic kidney disease; F32.9 Major depressive disorder, single episode, unspecified; F41.9 Anxiety disorder, unspecified; G89.29 Other chronic pain; I12.9 Hypertensive chronic kidney disease with stage 1 through stage 4 chronic kidney disease, or unspecified chronic kidney disease; I25.2 Old myocardial infarction; K74.60 Unspecified cirrhosis of liver; N18.3 Chronic kidney disease, stage 3 (moderate); Z79.4 Long term (current) use of insulin; Z79.899 Other long term (current) drug therapy; Z82.49 Family history of ischemic heart disease and other diseases of the circulatory system; Z87.01 Personal history of pneumonia (recurrent); Z87.11 Personal history of peptic ulcer disease; Z87.891 Personal history of nicotine dependence; Z90.710 Acquired absence of both cervix and uterus; Z91.19 Patient's noncompliance with other medical treatment and regimen; T47.3X6A Underdosing of saline and osmotic laxatives, initial encounter; Z91.128 Patient's intentional underdosing of medication regimen for other reason; Z92.21 Personal history of antineoplastic chemotherapy; Z93.2 Ileostomy status; Z90.49 Acquired absence of other specified parts of digestive tract; K57.30 Diverticulosis of large intestine without perforation or abscess without bleeding; Z68.25 Body mass index [BMI] 25.0-25.9, adult; Z87.440 Personal history of urinary (tract) infections; Z79.2 Long term (current) use of antibiotics; S50.12XA Contusion of left forearm, initial encounter; S50.11XA Contusion of right forearm, initial encounter; Z88.5 Allergy status to narcotic agent; Z88.0 Allergy status to penicillin; Z88.8 Allergy status to other drugs, medicaments and biological substances
CPT/HCPCS: 36415; 70450; 71045; 74183; 80053; 80202; 81001; 82140; 83036; 85025; 85610; 85730; 93005; 96360; 96361; 99285

== ENCOUNTER 2020-01-04 11:13 | Inpatient (IN) | payer MEDICARE ==
[2020-01-04] MEDS ORDERED: MORPHINE SULFATE 4 MG/ML SYRINGE IV STA (11:32)
--- NOTE | 2020-01-04 11:55 | ED ---
General Adult HPI - General Chief complaint: Weakness Stated complaint: weakness Time Seen by Provider: 01/04/20 11:22 Source: patient, EMS, RN notes reviewed, old records reviewed Mode of arrival: EMS Limitations: no limitations - History of Present Illness Initial comments: 74-year-old female with history of nonalcoholic liver disease, reported history of hepatocellular carcinoma presenting for evaluation of confusion and abdominal distention and outpatient ultrasound showing increased ascites. She has a history of hepatic encephalopathy. Patient is presenting from home with the recommendation of her home care nurse for evaluation of abdominal distention and confusion. She denies vomiting, states she's had some nausea. She's had normal output out of her colostomy with no diarrhea, no bleeding. She denies chest pain or dyspnea. - Related Data Home Medications Medication Instructions Recorded Confirmed Omeprazole [PriLOSEC] 20 mg PO DAILY 10/23/18 11/25/19 Sucralfate [Carafate] 1 gm PO ACHS 10/23/18 11/25/19 Insulin Regular, Human [NovoLIN R] 10 unit SQ AC-TID 10/24/18 11/25/19 Cholecalciferol [Vitamin D3 (25 2,000 unit PO DAILY 01/16/19 11/25/19 Mcg = 1000 Iu)] Ferrous Sulfate [Iron (65 MG 325 mg PO BID 01/31/19 11/25/19 Elemental)] Morphine Sulfate [Ms Contin] 15 mg PO BID 05/15/19 11/25/19 buPROPion HCL [Wellbutrin SR] 150 mg PO DAILY 06/12/19 11/25/19 clonazePAM [KlonoPIN] 0.5 mg PO BID@0800,199906/12/19 11/25/19 Dicyclomine [Bentyl] 10 mg PO DAILY 10/02/19 11/25/19 Insulin NPH Human Isophane 18 unit SQ AC-BID 10/02/19 11/25/19 [NovoLIN N] Isosorbide Mononitrate ER [Imdur] 30 mg PO DAILY@0800 11/25/19 11/25/19 Spironolactone [Aldactone] 25 mg PO BID@0800,1600 11/25/19 11/25/19 Previous Rx's Medication Instructions Recorded Metoprolol Tartrate [Lopressor] 6.25 mg PO DAILY tab 10/04/19 Mag Hydrox/Al Hydrox/Simeth 30 ml PO TID cup 11/21/19 [Maalox] Torsemide [Demadex] 20 mg PO DAILY tab 11/21/19 Clotrimazole Hayden [Mycelex 10 mg MUCOUS MEM TID 7 Days #21 11/30/19 Hayden] hayden Lactulose [Cephulac] 30 gm PO TID 7 Days #1000 ml 11/30/19 Allergies Allergy/AdvReac Type Severity Reaction Status Date / Time amlodipine Allergy Rash/Hives Verified 11/25/19 13:40 oxycodone Allergy Rash/Hives Verified 11/25/19 13:40 Penicillins Allergy Rash/Hives Verified 11/25/19 13:40 hydromorphone [From Dilaudid] AdvReac Mild tactile Verified 11/25/19 13:40 disturbance GREG Inhibitors AdvReac Cough Verified 11/25/19 13:40 sodium dodecyclbenzene Allergy Rash/Hives Uncoded 11/06/19 13:17 sulfonate Review of Systems ROS Statement: Those systems with pertinent positive or pertinent negative responses have been documented in the HPI. ROS Other: All systems not noted in ROS Statement are negative. Past Medical History Past Medical History: Cancer, Diabetes Mellitus, Hypertension, Liver Disease, Myocardial Infarction (SD), Renal Disease Additional Past Medical History / Comment(s): Hepatocellular liver cancer with chemo immobilization-last time being 2017, ascities with paracentesis's may 2019, nonalcoholic liver cirrhosis, chronic pancytopenia, chronic elevated ammonia levels, hepatic encephalopathy, chronic elevated LFTs, chronic abdominal pain, stomach ulcer, diverticular disease with ileostomy, IDDM type II, iron anemia, CKD stage III, nonsustained vtach, UTI, high ammonia levels Last Myocardial Infarction Date:: unk History of Any Multi-Drug Resistant Organisms: MRSA, VRE Date of last positivie culture/infection: 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 Past Anesthesia/Blood Transfusion Reactions: No Reported Reaction Past Psychological History: Anxiety, Depression Smoking Status: Former smoker Past Alcohol Use History: None Reported Past Drug Use History: None Reported - Past Family History Mother History Unknown: Yes Family Medical History: Congestive Heart Failure (CHF) Additional Family Medical History / Comment(s): Mother is 94 yrs old. Father Family Medical History: Chest Pain / Angina Additional Family Medical History / Comment(s): Father is . General Exam Limitations: no limitations General appearance: in no apparent distress, lethargic Head exam: Present: atraumatic, normocephalic Eye exam: Present: normal appearance, PERRL, scleral icterus ENT exam: Present: normal exam Neck exam: Present: normal inspection. Absent: tenderness, meningismus Respiratory exam: Present: normal lung sounds bilaterally. Absent: respiratory distress, wheezes Cardiovascular Exam: Present: regular rate, normal rhythm GI/Abdominal exam: Present: soft, distended, tenderness (Minimal generalized tenderness), other (Colostomy, pink, loose stool output). Absent: guarding, rebound Extremities exam: Present: normal inspection, normal capillary refill. Absent: pedal edema Neurological exam: Present: alert. Absent: motor sensory deficit Skin exam: Present: warm, dry, intact. Absent: cyanosis, diaphoretic Course Vital Signs 01/04/20 11:19 Temperature 98.2 F Pulse Rate 61 Respiratory 18 Rate Blood Pressure 109/66 O2 Sat by Pulse 98 Oximetry EKG Findings - EKG Comments: EKG Findings:: EKG: Sinus rhythm with sinus arrhythmia PVC, left axis, right bundle-branch block, LVH, rate of 86, FL interval 158, QRS duration 1:30, QTC 500, no significant change compared to previous in November 2019 Medical Decision Making - Medical Decision Making 74-year-old female presenting with confusion and abdominal distention, outpatient lab showing increased ascites. She has normal CBC, creatinine at baseline 1.23. She has a significantly elevated ammonia at 100, this is likely contributing to her confusion. Her bili and transaminase levels are close to baseline. She has some minimal abdominal tenderness and distention on exam. She is afebrile with stable vitals. She is given some IV hydration and lactulose for her elevated ammonia level. She will be admitted for monitoring, possible paracentesis. Case discussed with the admitting physician. - Lab Data Result diagrams: 01/04/20 12:03 01/04/20 12:03 Lab Results 01/04/20 01/04/20 01/04/20 Range/Units 12:00 12:03 12:03 WBC 5.1 (3.8-10.6) k/uL RBC 3.89 (3.80-5.40) m/uL Hgb 13.5 (11.4-16.0) gm/dL Hct 41.2 (34.0-46.0) % MCV 105.8 H (80.0-100.0) fL MCH 34.7 (25.0-35.0) pg MCHC 32.8 (31.0-37.0) g/dL RDW 15.1 (11.5-15.5) % Plt Count 89 L (150-450) k/uL Macrocytosis Moderate PT (9.0-12.0) sec INR (<1.2) APTT (22.0-30.0) sec Sodium (137-145) mmol/L Potassium (3.5-5.1) mmol/L Chloride (98-107) mmol/L Carbon Dioxide (22-30) mmol/L Anion Gap mmol/L BUN (7-17) mg/dL Creatinine (0.52-1.04) mg/dL Est GFR (CKD-EPI)AfAm (>60 ml/min/1.73 sqM) Est GFR (CKD-EPI)NonAf (>60 ml/min/1.73 sqM) Glucose (74-99) mg/dL Plasma Lactic Acid Carlos 1.4 (0.7-2.0) mmol/L Calcium (8.4-10.2) mg/dL Magnesium (1.6-2.3) mg/dL Total Bilirubin (0.2-1.3) mg/dL AST (14-36) U/L ALT (4-34) U/L Alkaline Phosphatase (38-126) U/L Ammonia 100 H (<30) umol/L Total Protein (6.3-8.2) g/dL Albumin (3.5-5.0) g/dL Urine Color Luh Urine Appearance Cloudy H (Clear) Urine pH 6.0 (5.0-8.0) Ur Specific [place] 1.010 (1.001-1.035) Urine Protein Negative (Negative) Urine Glucose (UA) Negative (Negative) Urine Ketones Negative (Negative) Urine Blood Negative (Negative) Urine Nitrite Negative (Negative) Urine Bilirubin Negative (Negative) Urine Urobilinogen <2.0 (<2.0) mg/dL Ur Leukocyte Esterase Negative (Negative) Urine RBC <1 (0-5) /hpf Urine WBC 7 H (0-5) /hpf Ur Squamous Epith Cells 6 H (0-4) /hpf Urine Bacteria Many H (None) /hpf Urine Mucus Rare H (None) /hpf 01/04/20 01/04/20 Range/Units 12:03 12:03 WBC (3.8-10.6) k/uL RBC (3.80-5.40) m/uL Hgb (11.4-16.0) gm/dL Hct (34.0-46.0) % MCV (80.0-100.0) fL MCH (25.0-35.0) pg MCHC (31.0-37.0) g/dL RDW (11.5-15.5) % Plt Count (150-450) k/uL Macrocytosis PT 12.7 H (9.0-12.0) sec INR 1.3 H (<1.2) APTT 24.5 (22.0-30.0) sec Sodium 135 L (137-145) mmol/L Potassium 4.3 (3.5-5.1) mmol/L Chloride 103 (98-107) mmol/L Carbon Dioxide 24 (22-30) mmol/L Anion Gap 8 mmol/L BUN 31 H (7-17) mg/dL Creatinine 1.23 H (0.52-1.04) mg/dL Est GFR (CKD-EPI)AfAm 51 (>60 ml/min/1.73 sqM) Est GFR (CKD-EPI)NonAf 44 (>60 ml/min/1.73 sqM) Glucose 129 H (74-99) mg/dL Plasma Lactic Acid Carlos (0.7-2.0) mmol/L Calcium 8.6 (8.4-10.2) mg/dL Magnesium 1.7 (1.6-2.3) mg/dL Total Bilirubin 2.8 H (0.2-1.3) mg/dL AST 83 H (14-36) U/L ALT 42 H (4-34) U/L Alkaline Phosphatase 303 H (38-126) U/L Ammonia (<30) umol/L Total Protein 7.0 (6.3-8.2) g/dL Albumin 3.0 L (3.5-5.0) g/dL Urine Color Urine Appearance (Clear) Urine pH (5.0-8.0) Ur Specific [place] (1.001-1.035) Urine Protein (Negative) Urine Glucose (UA) (Negative) Urine Ketones (Negative) Urine Blood (Negative) Urine Nitrite (Negative) Urine Bilirubin (Negative) Urine Urobilinogen (<2.0) mg/dL Ur Leukocyte Esterase (Negative) Urine RBC (0-5) /hpf Urine WBC (0-5) /hpf Ur Squamous Epith Cells (0-4) /hpf Urine Bacteria (None) /hpf Urine Mucus (None) /hpf Disposition Clinical Impression: Cirrhosis of liver with ascites, Change in mental status, History of liver cancer, Hepatic encephalopathy Disposition: ADMITTED IP TO [facility] Condition: Stable Is patient prescribed a controlled substance at d/c from ED?: No Referrals: Gilma Martinez MD [Primary Care Provider] - 1-2 days Decision to Admit Reason: Admit from EC Decision Date: 01/04/20 Decision Time: 13:08
--- NOTE | 2020-01-04 12:33 | XR ---
EXAMINATION TYPE: XR chest 2V DATE OF EXAM: 01/04/2020 COMPARISON: 11/25/2019 HISTORY: 74-year-old female with weakness TECHNIQUE: AP and lateral views FINDINGS: Leftward patient rotation alters the normal cardiomediastinal contours. Heart upper limits of normal in size. Diffuse interstitial prominence is unchanged.-Mid thoracic spine. No consolidation or pleura l effusion. IMPRESSION: Chronic changes. No definite acute process.
[2020-01-04 12:37] LABS: Bacteria,Urine Many /hpf; Mucus,Urine Rare /hpf; RBC,Urine <1 /hpf (0-5); Squamous Epithelial Cell,Urine 6 /hpf (0-4); WBC,Urine 7 /hpf (0-5)
[2020-01-04 12:47] LABS: Appearance,Urine Cloudy (Clear); Color,Urine Amber
[2020-01-04 12:48] LABS: Bilirubin,Urine Negative (Negative); Blood,Urine Negative (Negative); Glucose,Urine (UA) Negative (Negative); Ketones,Urine Negative (Negative); Leukocyte Esterase,Urine Negative (Negative); Nitrite,Urine Negative (Negative); Protein,Urine Negative (Negative); Urobilinogen,Urine <2.0 mg/dL (<2.0)
[2020-01-04 12:54] LABS: Calcium 8.6 mg/dL (8.4-10.2); Magnesium 1.7 mg/dL (1.6-2.3); Potassium 4.3 mmol/L (3.5-5.1); Total Bilirubin 2.8 mg/dL (0.2-1.3)
[2020-01-04 12:55] LABS: Lactic Acid, Venous 1.4 mmol/L (0.7-2.0)
[2020-01-04 12:56] LABS: INR 1.3 (<1.2); Partial Thromboplastin Time 24.5 sec (22.0-30.0); Prothrombin Time 12.7 sec (9.0-12.0)
[2020-01-04 13:01] LABS: Basophils % (A) 0 %; Eosinophils # (A) 0.1 k/uL (0-0.7); Eosinophils % (A) 1 %; HCT 41.2 % (34.0-46.0); HGB 13.5 gm/dL (11.4-16.0); Lymphocytes # (A) 0.7 k/uL (1.0-4.8); Lymphocytes % (A) 14 %; MCH 34.7 pg (25.0-35.0); MCHC 32.8 g/dL (31.0-37.0); MCV 105.8 fL (80.0-100.0); Macrocytosis Moderate; Mean Platelet Volume 10.3; Monocytes # (A) 0.2 k/uL (0-1.0); Monocytes % (A) 5 %; Neutrophils # (A) 3.9 k/uL (1.3-7.7); Neutrophils % (A) 78 %; RBC 3.89 m/uL (3.80-5.40); RDW 15.1 % (11.5-15.5); WBC 5.1 k/uL (3.8-10.6)
[2020-01-04] MEDS ORDERED: LACTULOSE 20 GM/30 ML CUP PO ONE (13:05)
[2020-01-04] MEDS ORDERED: NALOXONE 0.4 MG/ML 1 ML VIAL IV PRN (13:10)
[2020-01-04] MEDS ORDERED: SODIUM CHLORIDE 0.9% 1,000 ML IV SCH (13:15)
[2020-01-04 13:27] LABS: Platelet Count 89 k/uL (150-450); Poikilocytosis (M) Present
[2020-01-04] MEDS ORDERED: clonazePAM 0.5 MG TAB PO PRN (15:43)
--- NOTE | 2020-01-04 16:21 | P.HPIM ---
History of Present Illness H&P Date: 01/04/20 Chief Complaint: abd pain , ascites, confusion 74-year-old female with hepatocellular carcinoma Patient comes in due to ultrasound showing large ascites and patient having in creasing abdominal pain and confusion she's been trying to make contact with her regular physician to get her abdomen tapped , but couldn't arrange for that appointment. Her visiting nurse suggested that she goes to the hospital due to increasing confusion. Patient reports abdominal pain vague diffuse mainly in the upper part of the belly rated as 7 out of 10 in severity and worse with movement. Denies any fevers denies any chills denies any chest pain but reports some difficulty with taking deep breaths at that increases her abdominal pain. Patient also reports feeling nauseous and vomiting couple times. Denies any hematemesis coffee-ground or bilious vomiting. She has an ileostomy secondary to a burst diverticulitis back in 2007. She gets paracentesis done about 4 times a year last time was done in September of last year. She denies any history of hepatitis denies any IV drug abuse denies any history of alcohol abuse. Her visiting nurse suggested that she comes to the hospital to get paracentesis as she noticed that she's getting more confused. In the ED she was found to have elevated ammonia. However other labs like liver enzymes and creatinine looks like around her baseline which is elevated. She has chronic thrombocytopenia. No evidence of bleeding Patient admitted for further testing and monitoring Review of Systems Pertinent positives as noted in HPI. All other systems were reviewed and are negative Past Medical History Past Medical History: Cancer, Diabetes Mellitus, Hypertension, Liver Disease, Myocardial Infarction (NC), Renal Disease Additional Past Medical History / Comment(s): Hepatocellular liver cancer with chemo immobilization-last time being 2017, ascities with paracentesis's Sep 2019, nonalcoholic liver cirrhosis, chronic pancytopenia, chronic elevated ammonia levels, hepatic encephalopathy, chronic elevated LFTs, chronic abdominal pain, stomach ulcer, diverticular disease with ileostomy, IDDM type II, iron anemia, CKD stage III, nonsustained vtach, UTI, high ammonia levels Last Myocardial Infarction Date:: unk History of Any Multi-Drug Resistant Organisms: MRSA, VRE Date of last positivie culture/infection: 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 Past Anesthesia/Blood Transfusion Reactions: No Reported Reaction Past Psychological History: Anxiety, Depression Smoking Status: Former smoker Past Alcohol Use History: None Reported Past Drug Use History: None Reported - Past Family History Mother History Unknown: Yes Family Medical History: Congestive Heart Failure (CHF) Additional Family Medical History / Comment(s): Mother is 94 yrs old. Father Family Medical History: Chest Pain / Angina Additional Family Medical History / Comment(s): Father is . Medications and Allergies Home Medications Medication Instructions Recorded Confirmed Type Omeprazole [PriLOSEC] 20 mg PO BID 10/23/18 01/04/20 History Sucralfate [Carafate] 1 gm PO QID 10/23/18 01/04/20 History Insulin Regular, Human [NovoLIN R] 10 unit SQ AC-TID 10/24/18 01/04/20 History Cholecalciferol [Vitamin D3 (25 4,000 unit PO DAILY 01/16/19 01/04/20 History Mcg = 1000 Iu)] Ferrous Sulfate [Iron (65 MG 325 mg PO BID 01/31/19 01/04/20 History Elemental)] buPROPion HCL [Wellbutrin SR] 150 mg PO DAILY 06/12/19 01/04/20 History clonazePAM [KlonoPIN] 0.5 mg PO Q8H PRN 06/12/19 01/04/20 History Metoprolol Tartrate [Lopressor] 6.25 mg PO DAILY tab 10/04/19 01/04/20 Rx Torsemide [Demadex] 20 mg PO DAILY tab 11/21/19 01/04/20 Rx Isosorbide Mononitrate ER [Imdur] 30 mg PO DAILY@0800 11/25/19 01/04/20 History Spironolactone [Aldactone] 25 mg PO DAILY 11/25/19 01/04/20 History Lactulose [Cephulac] 30 gm PO TID 7 Days #1000 ml 11/30/19 01/04/20 Rx Dicyclomine [Bentyl] 20 mg PO QID 01/04/20 01/04/20 History Insulin NPH Human Isophane 18 unit SQ BID 01/04/20 01/04/20 History [humuLIN N] Morphine Sulfate ER [Ms Contin] 30 mg PO Q12HR 01/04/20 01/04/20 History Morphine Sulfate Ir [MSIR] 15 mg PO Q3H PRN 01/04/20 01/04/20 History Ondansetron HCl [Zofran] 8 mg PO DAILY 01/04/20 01/04/20 History Allergies Allergy/AdvReac Type Severity Reaction Status Date / Time amlodipine Allergy Rash/Hives Verified 01/04/20 13:44 oxycodone Allergy Rash/Hives Verified 01/04/20 13:44 Penicillins Allergy Rash/Hives Verified 01/04/20 13:44 hydromorphone [From Dilaudid] AdvReac Mild tactile Verified 01/04/20 13:44 disturbance GREG Inhibitors AdvReac Cough Verified 01/04/20 13:44 sodium dodecyclbenzene Allergy Rash/Hives Uncoded 11/06/19 13:17 sulfonate Physical Exam Vitals: Vital Signs Temp Pulse Resp BP Pulse Ox 01/04/20 14:29 66 18 115/60 99 01/04/20 11:19 98.2 F 61 18 109/66 98 Intake and Output 01/04/20 01/04/20 01/04/20 06:59 14:59 22:59 Other: Weight 86.636 kg Constitutional: No acute distress, conversant, pleasant Eyes: Anicteric sclerae, moist conjunctiva, no lid-lag Pupils equal round reactive to light ENMT: NC/AT Oropharynx clear, no erythema, exudates Neck: Supple, FROM, no masses, or JVD No carotid bruits No thyromegaly Lungs: Clear to auscultation Clear to percussion Normal respiratory effort, no accessory muscle use Cardiovascular: Heart regular in rate and rhythm, Systolic murmurs, no gallops, or rubs No peripheral edema Abdominal: Soft, mild to moderate distention, ileostomy back functional no evidence of bleeding, tenderness to palpation over the epigastric and bilateral upper quadrants regions no guarding, rebound or rigidity Abdomen moving with respiration Normoactive bowel sounds No hepatomegaly, No splenomegaly No palpable mass No abdominal wall hernia noted Skin: Normal temperature, tone, texture, turgor No induration No subcutaneous nodules No rash, lesions No ulcers Extremities: No digital cyanosis No clubbing Pedal pulses intact and symmetrical Radial pulses intact and symmetrical No calf tenderness Psychiatric: Alert and oriented to person, and place. Appropriate affect fair judgement Neuro positive for asterixis Muscles Strength 4/5 in all 4 extremities Sensation to light touch grossly present throughout Cranial nerves II-XII grossly intact No focal sensory deficits Lymphatics: no palpable cervical or supraclavicular , or inguinal lymph nodes Results CBC & Chem 7: 01/04/20 12:03 01/04/20 12:03 Labs: Abnormal Lab Results - Last 24 Hours (Table) 01/04/20 01/04/20 01/04/20 Range/Units 12:00 12: 12:03 MCV 105.8 H (80.0-100.0) fL Plt Count 89 L (150-450) k/uL Lymphocytes # 0.7 L (1.0-4.8) k/uL PT (9.0-12.0) sec INR (<1.2) Sodium (137-145) mmol/L BUN (7-17) mg/dL Creatinine (0.52-1.04) mg/dL Glucose (74-99) mg/dL Total Bilirubin (0.2-1.3) mg/dL AST (14-36) U/L ALT (4-34) U/L Alkaline Phosphatase (38-126) U/L Ammonia 100 H (<30) umol/L Albumin (3.5-5.0) g/dL Urine Appearance Cloudy H (Clear) Urine WBC 7 H (0-5) /hpf Ur Squamous Epith Cells 6 H (0-4) /hpf Urine Bacteria Many H (None) /hpf Urine Mucus Rare H (None) /hpf 01/04/20 01/04/20 Range/Units 12:03 12:03 MCV (80.0-100.0) fL Plt Count (150-450) k/uL Lymphocytes # (1.0-4.8) k/uL PT 12.7 H (9.0-12.0) sec INR 1.3 H (<1.2) Sodium 135 L (137-145) mmol/L BUN 31 H (7-17) mg/dL Creatinine 1.23 H (0.52-1.04) mg/dL Glucose 129 H (74-99) mg/dL Total Bilirubin 2.8 H (0.2-1.3) mg/dL AST 83 H (14-36) U/L ALT 42 H (4-34) U/L Alkaline Phosphatase 303 H (38-126) U/L Ammonia (<30) umol/L Albumin 3.0 L (3.5-5.0) g/dL Urine Appearance (Clear) Urine WBC (0-5) /hpf Ur Squamous Epith Cells (0-4) /hpf Urine Bacteria (None) /hpf Urine Mucus (None) /hpf Assessment and Plan Assessment: 74-year-old female with hepatocellular carcinoma insulin-dependent diabetes Comes in due to recent ultrasound showing large ascites and increased confusion admitted for management and monitoring overnight with anticipated length of stay less than two midnight Plan: Mild acute metabolic encephalopathy Hepatocellular carcinoma Elevated liver enzymes and creatinine at baseline Hyperammonemia CK D stage III Recurrent ascites most recent paracentesis September 2019 Insulin-dependent diabetes Ileostomy secondary to history of burst diverticulitis Macrocytosis without anemia Thrombocytopenia chronic Plan Interventional radiology to assess for ascites with both therapeutic and diagnostic testing Rule out spontaneous bacterial peritonitis, low probability patient afebrile, no leukocytosis Resume lactulose follow-up ammonia Follow-up liver enzymes and renal function Resume home meds Check vitamin B12 and RBC folate Monitor off antibiotics await results of abdominal paracentesis, I would consider empiric antibiotics if she becomes febrile or white count goes up Monitor vital signs Avoid Tylenol Resume home pain control regimen DVT prophylaxis mechanical due to thrombocytopenia CODE STATUS: Full code Discussed with: Patient, ER, RN Anticipated length of stay less than [address]: home A total of 60 minutes was spent on the care of this complex patient more than 50% of the time was spent in counseling and care coordination.
[2020-01-04] MEDS ORDERED: INSULIN REGULAR 100 UNIT/ML VIAL SQ SCH (17:30)
[2020-01-04] MEDS: MORPHINE SULFATE IR 15 MG TABLET PO PRN ×2 (17:38→23:04)
[2020-01-04] MEDS: INSULIN ASPART (NovoLOG) 100 UNIT/ML VIAL SQ SCH ×2 (18:08→20:40)
[2020-01-04] MEDS: SUCRALFATE 1 GM TAB PO SCH ×2 (18:11→21:57)
[2020-01-04] MEDS: DICYCLOMINE 20 MG TAB PO SCH ×2 (18:11→21:57)
[2020-01-04 20:16] LABS: Glucose,Whole Blood 197 mg/dL (75-99)
[2020-01-04] MEDS: LACTULOSE 20 GM/30 ML CUP PO SCH (20:34)
[2020-01-04] MEDS: PANTOPRAZOLE 40 MG TABLET PO SCH (20:34)
[2020-01-04] MEDS: MORPHINE SULFATE ER 30 MG TABLET PO SCH (20:34)
[2020-01-04] MEDS: INSULIN NPH 300 UNIT/3 ML VIAL SQ SCH (20:39)
[2020-01-04] MEDS ORDERED: ONDANSETRON 4 MG/2 ML VIAL IVP PRN (22:02)
[2020-01-05] MEDS: MORPHINE SULFATE IR 15 MG TABLET PO PRN (02:19)
[2020-01-05 07:11] LABS: Glucose,Whole Blood 114 mg/dL (75-99)
[2020-01-05] MEDS: INSULIN ASPART (NovoLOG) 100 UNIT/ML VIAL SQ SCH ×4 (07:24→20:25)
[2020-01-05] MEDS: MORPHINE SULFATE ER 30 MG TABLET PO SCH ×2 (08:08→20:38)
[2020-01-05] MEDS: ISOSORBIDE MONONITRATE ER 30 MG TAB.ER.24H PO SCH (08:08)
[2020-01-05] MEDS: SUCRALFATE 1 GM TAB PO SCH ×4 (08:08→20:37)
[2020-01-05] MEDS: METOPROLOL TARTRATE 12.5 MG TAB PO SCH (08:08)
[2020-01-05] MEDS: PANTOPRAZOLE 40 MG TABLET PO SCH ×2 (08:08→20:37)
[2020-01-05] MEDS: SPIRONOLACTONE 25 MG TAB PO SCH (08:08)
[2020-01-05] MEDS: DICYCLOMINE 20 MG TAB PO SCH ×4 (08:08→20:38)
[2020-01-05] MEDS: LACTULOSE 20 GM/30 ML CUP PO SCH ×3 (08:09→20:38)
[2020-01-05] MEDS: buPROPion SR 150 MG TABLET.ER PO SCH (08:15)
[2020-01-05] MEDS: INSULIN NPH 300 UNIT/3 ML VIAL SQ SCH ×2 (08:22→20:41)
[2020-01-05] MEDS: TORSEMIDE 20 MG TAB PO SCH (08:22)
[2020-01-05 08:47] LABS: Albumin 2.7 g/dL (3.5-5.0); Calcium 8.5 mg/dL (8.4-10.2); Potassium 4.1 mmol/L (3.5-5.1); Total Protein 6.6 g/dL (6.3-8.2)
[2020-01-05 09:16] LABS: Basophils % (A) 0 %; Eosinophils # (A) 0.2 k/uL (0-0.7); Eosinophils % (A) 3 %; HCT 35.9 % (34.0-46.0); HGB 11.7 gm/dL (11.4-16.0); Lymphocytes # (A) 0.9 k/uL (1.0-4.8); Lymphocytes % (A) 20 %; MCH 35.3 pg (25.0-35.0); MCHC 32.7 g/dL (31.0-37.0); Macrocytosis Marked; Mean Platelet Volume 10.6; Monocytes # (A) 0.4 k/uL (0-1.0); Monocytes % (A) 8 %; Neutrophils # (A) 3.1 k/uL (1.3-7.7); Neutrophils % (A) 66 %; RBC 3.32 m/uL (3.80-5.40); RDW 14.7 % (11.5-15.5); WBC 4.7 k/uL (3.8-10.6)
[2020-01-05 09:18] LABS: Platelet Count 77 k/uL (150-450)
[2020-01-05 11:40] LABS: Glucose,Whole Blood 66 mg/dL (75-99)
[2020-01-05 11:49] LABS: Glucose,Whole Blood 83 mg/dL (75-99)
--- NOTE | 2020-01-05 13:02 | US ---
EXAMINATION TYPE: US paracentesis abd w/image DATE OF EXAM: 01/05/2020 COMPARISON: NONE HISTORY: Ascites. PROCEDURE: Maximal barrier technique was utilized. The skin overlying a suitable pocket of fluid was localized with ultrasound and the overlying skin was prepped and draped. Ultrasound was utilized with sterile technique. Lidocaine was used for local anesthesia and a skin jenny made with a scalpel. Catheter was advanced under direct ultrasound guidance into a suitable pocket of fluid and approximately 3.5 liter s of serous fluid were removed. Catheter was withdrawn and hemostasis achieved. There is no immedia te complication; the patient is discharged in stable condition. IMPRESSION: STATUS POST ULTRASOUND GUIDED PARACENTESIS FOR PALLIATION OF ASCITES. THIS PROCEDURE WA S PERFORMED BY THE UNDERSIGNED.
[2020-01-05 17:16] LABS: Glucose,Whole Blood 126 mg/dL (75-99)
[2020-01-05 17:48] LABS: Appearance,BF Cloudy
[2020-01-05 17:49] LABS: Nucleated Cells, Body Fluid 5 /uL; RBC, Body Fluid 64 /uL
--- NOTE | 2020-01-05 18:50 | P.PN ---
Subjective Progress Note Date: 01/05/20 Principal diagnosis: follow up for symptomatic ascites Patient seen and examined tolerated abdominal paracentesis wall 3.5 L removed she feels some relief in her symptoms She is reporting some nausea at this time and is not tolerating by mouth intake due to severe nausea and vomiting Denies any fevers or chills Objective - Vital Signs Vital signs: Vital Signs Temp 98.1 F 01/05/20 11:25 Pulse 70 01/05/20 15:51 Resp 20 01/05/20 15:51 BP 114/67 01/05/20 11:25 Pulse Ox 98 01/05/20 11:25 Intake & Output 01/04/20 01/05/20 01/05/20 18:59 06:59 18:59 Intake Total 2090 240 Output Total 1200 Balance 2090 -960 Weight 86.636 kg Intake: Intake, IV Titration 300 Amount Sodium Chloride 0.9% 1, 300 000 ml @ 75 mls/hr IV . [id number] [facility] Rx#:[id number] Oral 1790 240 Output: Urine 1200 Other: # Voids 3 3 # Bowel Movements 2 - Exam Constitutional: vital signs stable, Not in acute distress, pleasant, conversant Lungs: Clear to auscultation bilaterally, clear to percussion, normal respiratory effort Cardiovascular: Regular rate and rhythm, no murmurs, no gallops, no rubs, no peripheral edema Gastrointestinal: Soft, no tenderness to palpation, bowel sounds positive, ileostomy back functional Extremities: No digital cyanosis or clubbing, peripheral pulses palpable and equal , no calf muscle tenderness Psych: Alert, oriented to place, person and time, appropriate affect, intact judgment - Labs CBC & Chem 7: 01/05/20 08:18 01/05/20 08:18 Labs: Abnormal Lab Results - Last 24 Hours (Table) 01/04/20 01/05/20 01/05/20 Range/Units 20:14 07:10 08:18 RBC 3.32 L (3.80-5.40) m/uL MCV 108.0 H (80.0-100.0) fL MCH 35.3 H (25.0-35.0) pg Plt Count 77 L (150-450) k/uL Lymphocytes # 0.9 L (1.0-4.8) k/uL Macrocytosis Marked A Sodium (137-145) mmol/L BUN (7-17) mg/dL Creatinine (0.52-1.04) mg/dL POC Glucose (mg/dL) 197 H 114 H (75-99) mg/dL Total Bilirubin (0.2-1.3) mg/dL AST (14-36) U/L ALT (4-34) U/L Alkaline Phosphatase (38-126) U/L Ammonia (<30) umol/L Albumin (3.5-5.0) g/dL 01/05/20 01/05/20 01/05/20 Range/Units 08:18 08:18 11:28 RBC (3.80-5.40) m/uL MCV (80.0-100.0) fL MCH (25.0-35.0) pg Plt Count (150-450) k/uL Lymphocytes # (1.0-4.8) k/uL Macrocytosis Sodium 135 L (137-145) mmol/L BUN 28 H (7-17) mg/dL Creatinine 1.26 H (0.52-1.04) mg/dL POC Glucose (mg/dL) 66 L (75-99) mg/dL Total Bilirubin 3.0 H (0.2-1.3) mg/dL AST 79 H (14-36) U/L ALT 40 H (4-34) U/L Alkaline Phosphatase 274 H (38-126) U/L Ammonia 35 H (<30) umol/L Albumin 2.7 L (3.5-5.0) g/dL 01/05/20 Range/Units 17:15 RBC (3.80-5.40) m/uL MCV (80.0-100.0) fL MCH (25.0-35.0) pg Plt Count (150-450) k/uL Lymphocytes # (1.0-4.8) k/uL Macrocytosis Sodium (137-145) mmol/L BUN (7-17) mg/dL Creatinine (0.52-1.04) mg/dL POC Glucose (mg/dL) 126 H (75-99) mg/dL Total Bilirubin (0.2-1.3) mg/dL AST (14-36) U/L ALT (4-34) U/L Alkaline Phosphatase (38-126) U/L Ammonia (<30) umol/L Albumin (3.5-5.0) g/dL Assessment and Plan Assessment: 74-year-old female with hepatocellular carcinoma insulin-dependent diabetes Comes in due to recent ultrasound showing large ascites and increased confusion admitted for management and monitoring 01/05 Patient status post paracentesis 3.5 L removed Patient feeling nauseous after procedure vomited couple times, will continue symptomatic control Patient reports discomfort in her belly and breathing has improved Ammonia has decreased significantly We'll continue to monitor overnight to achieve symptomatic control possible discharge in the morning Plan: Mild acute metabolic encephalopathy, resolved Hepatocellular carcinoma Elevated liver enzymes and creatinine at baseline Hyperammonemia CK D stage III Recurrent ascites most recent paracentesis September 2019 Insulin-dependent diabetes Ileostomy secondary to history of burst diverticulitis Macrocytosis without anemia Thrombocytopenia chronic Plan Status post paracentesis 3.5 L removed, transitive no evidence of infection Resume lactulose, ammonia has decreased Follow-up liver enzymes and renal function Resume home meds Vitamin B12 within normal limits Monitor vital signs Avoid Tylenol Resume home pain control regimen DVT prophylaxis mechanical due to thrombocytopenia Anticipated discharge in the morning if symptomatic control of nausea and vomiting achieved and patient tolerating by mouth intake
[2020-01-05 20:23] LABS: Glucose,Whole Blood 108 mg/dL (75-99)
[2020-01-06 02:57] LABS: Total Protein, Body Fluid 1030 mg/dL
[2020-01-06 03:27] LABS: Glucose, BF Source Peritoneal Fluid; Glucose, Body Fluid 151 mg/dL; LDH, Body Fluid Source Peritoneal Fluid
[2020-01-06 07:14] LABS: Glucose,Whole Blood 162 mg/dL (75-99)
[2020-01-06] MEDS: SUCRALFATE 1 GM TAB PO SCH ×2 (08:50→12:12)
[2020-01-06] MEDS: ISOSORBIDE MONONITRATE ER 30 MG TAB.ER.24H PO SCH (08:50)
[2020-01-06] MEDS: TORSEMIDE 20 MG TAB PO SCH (08:50)
[2020-01-06] MEDS: buPROPion SR 150 MG TABLET.ER PO SCH (08:51)
[2020-01-06] MEDS: DICYCLOMINE 20 MG TAB PO SCH ×2 (08:51→12:12)
[2020-01-06] MEDS: METOPROLOL TARTRATE 12.5 MG TAB PO SCH (08:52)
[2020-01-06] MEDS: MORPHINE SULFATE ER 30 MG TABLET PO SCH (08:53)
[2020-01-06] MEDS: SPIRONOLACTONE 25 MG TAB PO SCH (08:55)
[2020-01-06] MEDS: PANTOPRAZOLE 40 MG TABLET PO SCH (08:55)
[2020-01-06] MEDS: INSULIN NPH 300 UNIT/3 ML VIAL SQ SCH (08:57)
[2020-01-06] MEDS: INSULIN ASPART (NovoLOG) 100 UNIT/ML VIAL SQ SCH ×2 (08:57→12:12)
[2020-01-06] MEDS: LACTULOSE 20 GM/30 ML CUP PO SCH ×2 (08:58→12:11)
--- NOTE | 2020-01-06 09:53 | P.DS ---
Providers Date of admission: 01/04/20 13:10 Expected date of discharge: 01/06/20 Attending physician: Isa Dowd MD Primary care physician: Gilma Martinez Hospital Course: Discharge Diagnosis: Hepatic encephalopathy Decomepnsated cirrhosis Hepatocellular carcinoma Transaminitis CKD III DM 2 insulin requiring Ileostomy due to burst diverticulitis Anemia with macrocytosis Chronic Thrombocytopenia Hospital Course: Patient is a 74-year-old female with a history of hepatocellular carcinoma, recurrent ascites secondary to decompensated cirrhosis, diabetes mellitus type 2 insulin requiring, and chronic kidney disease stage III who presented to the emergency department at direction of her home health care nurse due to increasing confusion. She was found to have an elevated ammonia of 100, otherwise her AST and ALT were at baseline and the rest of her labs is at her baseline. She was admitted for decompensated cirrhosis. Interventional radiology was consulted. On 01/05 she underwent a paracentesis with removal of 3.5 L of fluid. Her ammonia had decreased to 35. As determined stable for discharge home as she was awake, alert, and eating food. She was encouraged to take her oral lactulose therapy he has had multiple admissions due to confusion and refusal to take her lactulose. She will have home health and palliative c are on discharge. She'll follow-up with Dr. Martinez next week. I've encouraged her to follow-up with Dr. Figueroa in the next 2 weeks. Patient seen and examined at bedside. Port that she has chronic abdominal pain secondary to her cirrhosis even though she staes she is not supossed to HAVE pain. She states that she will have pain all day today and will be fine tomorrow. she is tolerating her diet. She feels much improved after paracentesis. Vital signs reviewed and stable. General: non toxic, no distress, appears at stated age Derm: warm, dry Head: atraumatic, normocephalic, symmetric Eyes: EOMI, no lid lag, anicteric sclera Mouth: no lip lesion, mucus membranes moist Cardiovascular: S1S2 reg, no murmur, positive posterior tibial pulse bilateral, Lungs: CTA bilateral, no rhonchi, no rales , no accessory muscle use Abdominal: soft, nontender to palpation, no guarding, no appreciable organomegaly Ext: no gross muscle atrophy, no edema, no contractures Neuro: CN II-XI grossly intact, no focal neuro deficits Psych: Alert, oriented, appropriate affect A total of 35 minutes of time were spent preparing this complex discharge summary . Patient Condition at Discharge: Stable Plan - Discharge Summary Discharge Rx Participant: Yes New Discharge Prescriptions: Continue Sucralfate [Carafate] 1 gm PO QID Omeprazole [PriLOSEC] 20 mg PO BID Insulin Regular, Human [NovoLIN R] 10 unit SQ AC-TID Cholecalciferol [Vitamin D3 (25 Mcg = 1000 Iu)] 4,000 unit PO DAILY Ferrous Sulfate [Iron (65 MG Elemental)] 325 mg PO BID buPROPion HCL [Wellbutrin SR] 150 mg PO DAILY clonazePAM [KlonoPIN] 0.5 mg PO Q8H PRN PRN Reason: Anxiety Metoprolol Tartrate [Lopressor] 6.25 mg PO DAILY tab Torsemide [Demadex] 20 mg PO DAILY tab Isosorbide Mononitrate ER [Imdur] 30 mg PO DAILY@0800 Spironolactone [Aldactone] 25 mg PO DAILY Lactulose [Cephulac] 30 gm PO TID 7 Days #1000 ml Dicyclomine [Bentyl] 20 mg PO QID Insulin NPH Human Isophane [humuLIN N] 18 unit SQ BID Ondansetron HCl [Zofran] 8 mg PO DAILY Morphine Sulfate Ir [MSIR] 15 mg PO Q3H PRN PRN Reason: Breakthrough Pain Morphine Sulfate ER [Ms Contin] 30 mg PO Q12HR Discharge Medication List Omeprazole [PriLOSEC] 20 mg PO BID 10/23/18 [History] Sucralfate [Carafate] 1 gm PO QID 10/23/18 [History] Insulin Regular, Human [NovoLIN R] 10 unit SQ AC-TID 10/24/18 [History] Cholecalciferol [Vitamin D3 (25 Mcg = 1000 Iu)] 4,000 unit PO DAILY 01/16/19 [History] Ferrous Sulfate [Iron (65 MG Elemental)] 325 mg PO BID 01/31/19 [History] buPROPion HCL [Wellbutrin SR] 150 mg PO DAILY 06/12/19 [History] clonazePAM [KlonoPIN] 0.5 mg PO Q8H PRN 06/12/19 [History] Metoprolol Tartrate [Lopressor] 6.25 mg PO DAILY tab 10/04/19 [Rx] Torsemide [Demadex] 20 mg PO DAILY tab 11/21/19 [Rx] Isosorbide Mononitrate ER [Imdur] 30 mg PO DAILY@0800 11/25/19 [History] Spironolactone [Aldactone] 25 mg PO DAILY 11/25/19 [History] Lactulose [Cephulac] 30 gm PO TID 7 Days #1000 ml 11/30/19 [Rx] Dicyclomine [Bentyl] 20 mg PO QID 01/04/20 [History] Insulin NPH Human Isophane [humuLIN N] 18 unit SQ BID 01/04/20 [History] Morphine Sulfate ER [Ms Contin] 30 mg PO Q12HR 01/04/20 [History] Morphine Sulfate Ir [MSIR] 15 mg PO Q3H PRN 01/04/20 [History] Ondansetron HCl [Zofran] 8 mg PO DAILY 01/04/20 [History] Follow up Appointment(s)/Referral(s): [facility], [NON-STAFF] - 1 Week Gilma Martinez MD [Primary Care Provider] - 1-2 days Carley Valverde MD [STAFF PHYSICIAN] - 2 Weeks Activity/Diet/Wound Care/Special Instructions: Activity: as tolerated Diet: carb consistent, 2 gram sodium Special Instructions: take lactulose as prescribed Discharge Disposition: HOME WITH HOME HEALTH SERVICES
[2020-01-06 11:21] LABS: Glucose,Whole Blood 244 mg/dL (75-99)
[2020-01-06] MEDS ORDERED: INFLUENZA VACCINE (6 MOS+) 60 MCG/0.5 ML SYRINGE IM ONE (12:19)
[2020-01-06 12:48] VITALS: BP 92/55; PULSE 50; RESP 18; TEMP 98
== END 2020-01-06 15:04 | disposition home or self-care (01) | DRG 442 ==
LOC: EC 11:13 → 5NMEDONC 13:10
PROVIDERS: ADMIT Family Medicine; ATTEND Family Medicine
PROC: 0W9G3ZZ Drainage of Peritoneal Cavity, Percutaneous Approach (ICD-10-PCS; principal; 2020-01-05)
DX: K72.10 Chronic hepatic failure without coma (principal); R18.8 Other ascites; C22.0 Liver cell carcinoma; K74.60 Unspecified cirrhosis of liver; D69.6 Thrombocytopenia, unspecified; E11.22 Type 2 diabetes mellitus with diabetic chronic kidney disease; N18.3 Chronic kidney disease, stage 3 (moderate); F32.9 Major depressive disorder, single episode, unspecified; D64.89 Other specified anemias; F41.9 Anxiety disorder, unspecified; G89.29 Other chronic pain; I12.9 Hypertensive chronic kidney disease with stage 1 through stage 4 chronic kidney disease, or unspecified chronic kidney disease; I25.2 Old myocardial infarction; Z79.4 Long term (current) use of insulin; Z79.899 Other long term (current) drug therapy; Z88.5 Allergy status to narcotic agent; Z88.0 Allergy status to penicillin; Z88.8 Allergy status to other drugs, medicaments and biological substances; Z93.2 Ileostomy status; Z93.3 Colostomy status; Z90.710 Acquired absence of both cervix and uterus; Z87.891 Personal history of nicotine dependence; Z87.11 Personal history of peptic ulcer disease; Z86.14 Personal history of Methicillin resistant Staphylococcus aureus infection; Z92.21 Personal history of antineoplastic chemotherapy; Z90.49 Acquired absence of other specified parts of digestive tract; Z87.440 Personal history of urinary (tract) infections; Z82.49 Family history of ischemic heart disease and other diseases of the circulatory system
CPT/HCPCS: 36415; 49083; 71046; 80053; 81001; 82140; 82607; 82747; 82945; 83605; 83615; 83735; 84157; 85025; 85610; 85730; 87070; 87205; 89050; 90686; 93005; 94760; 96361; 96374; 99285

== ENCOUNTER 2020-01-25 09:31 | Observation (INO) | payer MEDICARE, OTHER ==
[2020-01-25] MEDS ORDERED: ONDANSETRON 4 MG/2 ML VIAL IVP STA (10:02)
[2020-01-25] MEDS ORDERED: SODIUM CHLORIDE 0.9% 1,000 ML IV STA (10:02)
[2020-01-25] MEDS ORDERED: FAMOTIDINE 20 MG/2 ML VIAL IV STA (10:04)
[2020-01-25] MEDS ORDERED: MORPHINE SULFATE 2 MG/ML SYRINGE IVP STA (10:04)
--- NOTE | 2020-01-25 10:08 | ED ---
General Adult HPI - General Chief complaint: Abdominal Pain Stated complaint: Abd pain, nausea Time Seen by Provider: 01/25/20 09:36 Source: patient, EMS, RN notes reviewed Mode of arrival: EMS Limitations: no limitations - History of Present Illness Initial comments: Patient is a pleasant 74-year-old female presenting to the emergency Department with complaints of abdominal discomfort, nausea vomiting. Symptoms have progressed with the past week. Patient does have some chronic abdominal discomfort and does have ileostomy. Patient has this secondary to history of diverticulitis. No diarrhea or constipation. No fevers. - Related Data Home Medications Medication Instructions Recorded Confirmed Omeprazole [PriLOSEC] 20 mg PO BID 10/23/18 01/04/20 Sucralfate [Carafate] 1 gm PO QID 10/23/18 01/04/20 Insulin Regular, Human [NovoLIN R] 10 unit SQ AC-TID 10/24/18 01/04/20 Cholecalciferol [Vitamin D3 (25 4,000 unit PO DAILY 01/16/19 01/04/20 Mcg = 1000 Iu)] Ferrous Sulfate [Iron (65 MG 325 mg PO BID 01/31/19 01/04/20 Elemental)] buPROPion HCL [Wellbutrin SR] 150 mg PO DAILY 06/12/19 01/04/20 clonazePAM [KlonoPIN] 0.5 mg PO Q8H PRN 06/12/19 01/04/20 Isosorbide Mononitrate ER [Imdur] 30 mg PO DAILY@0800 11/25/19 01/04/20 Spironolactone [Aldactone] 25 mg PO DAILY 11/25/19 01/04/20 Dicyclomine [Bentyl] 20 mg PO QID 01/04/20 01/04/20 Insulin NPH Human Isophane 18 unit SQ BID 01/04/20 01/04/20 [humuLIN N] Morphine Sulfate ER [Ms Contin] 30 mg PO Q12HR 01/04/20 01/04/20 Morphine Sulfate Ir [MSIR] 15 mg PO Q3H PRN 01/04/20 01/04/20 Ondansetron HCl [Zofran] 8 mg PO DAILY 01/04/20 01/04/20 Previous Rx's Medication Instructions Recorded Metoprolol Tartrate [Lopressor] 6.25 mg PO DAILY tab 10/04/19 Torsemide [Demadex] 20 mg PO DAILY tab 11/21/19 Lactulose [Cephulac] 30 gm PO TID 7 Days #1000 ml 11/30/19 Allergies Allergy/AdvReac Type Severity Reaction Status Date / Time amlodipine Allergy Rash/Hives Verified 01/04/20 13:44 oxycodone Allergy Rash/Hives Verified 01/04/20 13:44 Penicillins Allergy Rash/Hives Verified 01/04/20 13:44 hydromorphone [From Dilaudid] AdvReac Mild tactile Verified 01/04/20 13:44 disturbance GREG Inhibitors AdvReac Cough Verified 01/04/20 13:44 sodium dodecyclbenzene Allergy Rash/Hives Uncoded 11/06/19 13:17 sulfonate Review of Systems ROS Statement: Those systems with pertinent positive or pertinent negative responses have been documented in the HPI. ROS Other: All systems not noted in ROS Statement are negative. Constitutional: Denies: fever Eyes: Denies: eye pain ENT: Denies: ear pain Respiratory: Denies: cough Cardiovascular: Denies: chest pain Endocrine: Denies: fatigue Gastrointestinal: Reports: abdominal pain, nausea, vomiting. Denies: diarrhea, constipation Genitourinary: Denies: dysuria Musculoskeletal: Denies: back pain Skin: Denies: rash Past Medical History Past Medical History: Cancer, Diabetes Mellitus, Hypertension, Liver Disease, Myocardial Infarction ([place]), Renal Disease Additional Past Medical History / Comment(s): Hepatocellular liver cancer with chemo immobilization-last time being 2017, ascities with paracentesis's Sep 2019, nonalcoholic liver cirrhosis, chronic pancytopenia, chronic elevated ammonia levels, hepatic encephalopathy, chronic elevated LFTs, chronic abdominal pain, stomach ulcer, diverticular disease with ileostomy, IDDM type II, iron anemia, CKD stage III, nonsustained vtach, UTI, high ammonia levels Last Myocardial Infarction Date:: unk History of Any Multi-Drug Resistant Organisms: MRSA, VRE Date of last positivie culture/infection: 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 Past Anesthesia/Blood Transfusion Reactions: No Reported Reaction Past Psychological History: Anxiety, Depression Smoking Status: Former smoker Past Alcohol Use History: None Reported Past Drug Use History: None Reported - Past Family History Mother History Unknown: Yes Family Medical History: Congestive Heart Failure (CHF) Additional Family Medical History / Comment(s): Mother is 94 yrs old. Father Family Medical History: Chest Pain / Angina Additional Family Medical History / Comment(s): Father is . General Exam Limitations: no limitations General appearance: alert, in no apparent distress Head exam: Present: normocephalic Eye exam: Present: normal appearance, PERRL ENT exam: Present: normal oropharynx Neck exam: Present: normal inspection Respiratory exam: Present: normal lung sounds bilaterally Cardiovascular Exam: Present: regular rate, normal rhythm Expanded Peripheral pulses: 2+: Posterior Tibialis (R), Posterior Tibialis (L), Dorsalis Pedis (R), Dorsalis Pedis (L) GI/Abdominal exam: Present: soft, tenderness (Diffuse abdominal tenderness, moderate, more so on the left side), normal bowel sounds. Absent: guarding, rebound, rigid, pulsatile mass Extremities exam: Present: normal inspection Neurological exam: Present: alert Psychiatric exam: Present: normal affect, normal mood Skin exam: Present: normal color Course Vital Signs 01/25/20 01/25/20 09:35 10:29 Temperature 98.9 F Pulse Rate 68 69 Respiratory 18 18 Rate Blood Pressure 112/54 118/68 O2 Sat by Pulse 100 98 Oximetry EKG Findings - EKG Comments: EKG Findings:: Sinus rhythm at 66. PVC is present. MT 158. QRS 134. QT 458. QTC 480. Left axis. Right bundle branch block. LVH. Medical Decision Making - Medical Decision Making Patient reevaluated and resting comfortably in bed. Patient states she did have some mild discomfort in the lower chest as well as the abdomen. Case discussed with Dr. Demarco, covering for Dr. Kurtz, who will admit. Consult will be placed for GI and cardiology. - Lab Data Result diagrams: 01/25/20 10:07 01/25/20 10:07 Lab Results 03/12/20 03/12/20 03/12/20 Range/Units 10:07 10:07 10:07 WBC 4.8 (3.8-10.6) k/uL RBC 3.49 L (3.80-5.40) m/uL Hgb 11.8 (11.4-16.0) gm/dL Hct 36.6 (34.0-46.0) % MCV 104.9 H (80.0-100.0) fL MCH 33.8 (25.0-35.0) pg MCHC 32.2 (31.0-37.0) g/dL RDW 14.1 (11.5-15.5) % Plt Count 86 L (150-450) k/uL Neutrophils % 73 % Lymphocytes % 16 % Monocytes % 5 % Eosinophils % 3 % Basophils % 0 % Neutrophils # 3.5 (1.3-7.7) k/uL Lymphocytes # 0.8 L (1.0-4.8) k/uL Monocytes # 0.3 (0-1.0) k/uL Eosinophils # 0.2 (0-0.7) k/uL Basophils # 0.0 (0-0.2) k/uL Macrocytosis Moderate PT 13.4 H (9.0-12.0) sec INR 1.3 H (<1.2) APTT 24.4 (22.0-30.0) sec Sodium 133 L (137-145) mmol/L Potassium 4.1 (3.5-5.1) mmol/L Chloride 105 (98-107) mmol/L Carbon Dioxide 20 L (22-30) mmol/L Anion Gap 8 mmol/L BUN 23 H (7-17) mg/dL Creatinine 1.10 H (0.52-1.04) mg/dL Est GFR (CKD-EPI)AfAm 58 (>60 ml/min/1.73 sqM) Est GFR (CKD-EPI)NonAf 50 (>60 ml/min/1.73 sqM) Glucose 112 H (74-99) mg/dL Calcium 8.2 L (8.4-10.2) mg/dL Total Bilirubin 2.9 H (0.2-1.3) mg/dL AST 79 H (14-36) U/L ALT 42 H (4-34) U/L Alkaline Phosphatase 291 H (38-126) U/L Troponin I (0.000-0.034) ng/mL Total Protein 6.6 (6.3-8.2) g/dL Albumin 2.7 L (3.5-5.0) g/dL Amylase 59 (30-110) U/L Lipase 27 (23-300) U/L 01/25/20 Range/Units 10:07 WBC (3.8-10.6) k/uL RBC (3.80-5.40) m/uL Hgb (11.4-16.0) gm/dL Hct (34.0-46.0) % MCV (80.0-100.0) fL MCH (25.0-35.0) pg MCHC (31.0-37.0) g/dL RDW (11.5-15.5) % Plt Count (150-450) k/uL Neutrophils % % Lymphocytes % % Monocytes % % Eosinophils % % Basophils % % Neutrophils # (1.3-7.7) k/uL Lymphocytes # (1.0-4.8) k/uL Monocytes # (0-1.0) k/uL Eosinophils # (0-0.7) k/uL Basophils # (0-0.2) k/uL Macrocytosis PT (9.0-12.0) sec INR (<1.2) APTT (22.0-30.0) sec Sodium (137-145) mmol/L Potassium (3.5-5.1) mmol/L Chloride (98-107) mmol/L Carbon Dioxide (22-30) mmol/L Anion Gap mmol/L BUN (7-17) mg/dL Creatinine (0.52-1.04) mg/dL Est GFR (CKD-EPI)AfAm (>60 ml/min/1.73 sqM) Est GFR (CKD-EPI)NonAf (>60 ml/min/1.73 sqM) Glucose (74-99) mg/dL Calcium (8.4-10.2) mg/dL Total Bilirubin (0.2-1.3) mg/dL AST (14-36) U/L ALT (4-34) U/L Alkaline Phosphatase (38-126) U/L Troponin I 0.191 H* (0.000-0.034) ng/mL Total Protein (6.3-8.2) g/dL Albumin (3.5-5.0) g/dL Amylase (30-110) U/L Lipase (23-300) U/L - Radiology Data Radiology results: report reviewed (Computed tomography scan shows cirrhosis with underlying portal hypertension. [id number] ascites. No obstruction. Possible gastroenteritis.) Disposition Clinical Impression: Abdominal pain, Chest pain Disposition: ADMITTED IP TO THIS HOSP Is patient prescribed a controlled substance at d/c from ED?: No Referrals: Gilma Martinez MD [Primary Care Provider] - 1-2 days Decision Time: 11:56
[2020-01-25 10:24] LABS: Basophils % (A) 0 %; Eosinophils # (A) 0.2 k/uL (0-0.7); Eosinophils % (A) 3 %; HCT 36.6 % (34.0-46.0); HGB 11.8 gm/dL (11.4-16.0); Lymphocytes # (A) 0.8 k/uL (1.0-4.8); Lymphocytes % (A) 16 %; MCH 33.8 pg (25.0-35.0); MCHC 32.2 g/dL (31.0-37.0); MCV 104.9 fL (80.0-100.0); Macrocytosis Moderate; Mean Platelet Volume 9.6; Monocytes # (A) 0.3 k/uL (0-1.0); Monocytes % (A) 5 %; Neutrophils # (A) 3.5 k/uL (1.3-7.7); Neutrophils % (A) 73 %; RBC 3.49 m/uL (3.80-5.40); RDW 14.1 % (11.5-15.5); WBC 4.8 k/uL (3.8-10.6)
[2020-01-25 10:32] LABS: Albumin 2.7 g/dL (3.5-5.0); Calcium 8.2 mg/dL (8.4-10.2); Platelet Count 86 k/uL (150-450); Potassium 4.1 mmol/L (3.5-5.1); Total Bilirubin 2.9 mg/dL (0.2-1.3); Total Protein 6.6 g/dL (6.3-8.2)
[2020-01-25 10:34] LABS: INR 1.3 (<1.2); Partial Thromboplastin Time 24.4 sec (22.0-30.0); Prothrombin Time 13.4 sec (9.0-12.0)
--- NOTE | 2020-01-25 11:30 | CT ---
EXAMINATION TYPE: CT abdomen pelvis wo con DATE OF EXAM: 01/25/2020 HISTORY: Pain, nausea, known liver CA CT DLP: 927.5 mGycm. Automated Exposure Control for Dose Reduction was Utilized. TECHNIQUE: CT scan of the abdomen and pelvis is performed without oral or IV contrast. COMPARISON: CT abdomen and pelvis dated 11/08/2019 and older CTs. FINDINGS: Within the limitations of a non-contrast study, the following observations are made. LUNG BASES: Mild dependent atelectasis bilaterally. Coronary calculation redemonstrated which is note d marked underlying coronary artery disease. No significant effusions. LIVER/GB: Cholecystectomy clips are redemonstrated. Small lobulated liver consistent with underlying cirrhosis. Occasional punctate calcification. More focal prominent calcification or hyperdensity ant erior left hepatic lobe could reflect treated neoplasm is stable. PANCREAS: Pancreas not well-seen presumed fatty atrophic. SPLEEN: Splenomegaly remains present measuring 14.7 cm long axis coronal image 69. Prominent upper to mid abdominal vessels suspicious for varices again seen near the kidneys and spleen. ADRENALS: Not well visualized presumably normal. KIDNEYS: No significant abnormality is seen. BOWEL: Evaluation suboptimal secondary to lack of enteric contrast. Stomach poorly distended and thus suboptimally evaluated. Moderate wall thickening in the duodenal sweep and jejunal loops proximal to mid abdomen thought present. There is rectal stump. There is right upper pelvic ostomy and parastoma l hernia. Significant colectomy changes are thought present. GENITAL ORGANS: Uterus surgically absent or markedly atrophic. Occasional scattered pelvic phlebolith . LYMPH NODES: No greater than 1cm abdominal or pelvic lymph nodes are appreciated. Scattered prominent but subcentimeter lymph nodes throughout the mesentery redemonstrated. OSSEOUS STRUCTURES: Multilevel spurring in the spine with multilevel disc space narrowing and vacuum disc phenomenon. OTHER: Mild calcified plaque of the aorta extends into branch vessels. Mild to moderate diffuse soft tissue anasarca slightly more prominent fluid over the left pelvis laterally. Small amount of abdomin al and pelvic ascites greatest in the pelvis and the left pericolic gutter are current study there is some eventration redemonstrated. Some mesenteric edema again seen. IMPRESSION: 1. Cirrhosis with evidence of underlying portal hypertension. Small to moderate amount of abdominal a nd pelvic ascites is thought decreased from most recent CT November 08, 2019. 2. No bowel obstruction. Parastomal hernia redemonstrated. Areas of acute gastroenteritis cannot be e xcluded though findings may be products of underlying liver disease. Similar findings noted on prior CT.
[2020-01-25] MEDS ORDERED: ASPIRIN 81 MG PO STA (11:56)
[2020-01-25] MEDS ORDERED: NITROGLYCERIN SL TABS 0.4 MG TAB SUBLINGUAL PRN (11:56)
[2020-01-25] MEDS ORDERED: ONDANSETRON 4 MG/2 ML VIAL IVP PRN (11:59)
[2020-01-25] MEDS ORDERED: NALOXONE 0.4 MG/ML 1 ML VIAL IV PRN (11:59)
[2020-01-25] MEDS ORDERED: MORPHINE SULFATE 4 MG/ML SYRINGE IV PRN (11:59)
[2020-01-25] MEDS ORDERED: NITROGLYCERIN OINT 1 INCH/GM PACKET TOPICAL SCH (12:00)
[2020-01-25 12:35] LABS: Appearance,Urine Clear (Clear); Bacteria,Urine Many /hpf; Bilirubin,Urine Negative (Negative); Blood,Urine Negative (Negative); Color,Urine Yellow; Glucose,Urine (UA) Negative (Negative); Ketones,Urine Negative (Negative); Leukocyte Esterase,Urine Small (Negative); Mucus,Urine Rare /hpf; Nitrite,Urine Positive (Negative); PH, Urine 5.5 (5.0-8.0); Protein,Urine Negative (Negative); RBC,Urine 2 /hpf (0-5); Specific Gravity,Urine 1.014 (1.001-1.035); Squamous Epithelial Cell,Urine 4 /hpf (0-4); Urobilinogen,Urine <2.0 mg/dL (<2.0); WBC,Urine 12 /hpf (0-5)
[2020-01-25] MEDS ORDERED: clonazePAM 0.5 MG TAB PO PRN (12:40)
[2020-01-25] MEDS ORDERED: MORPHINE SULFATE IR 15 MG TABLET PO PRN (12:40)
[2020-01-25] MEDS: SODIUM CHLORIDE 0.9% 1,000 ML IV SCH ×2 (12:41→22:01)
--- NOTE | 2020-01-25 13:02 | P.HPIM ---
History of Present Illness H&P Date: 01/25/20 Chief Complaint: Abdominal pain nausea and vomiting The patient is a 74-year-old female with a history of hepatocellular carcinoma with liver cirrhosis and history of recurrent ascites, type 2 diabetes and CKD stage III Who presents to the ER via private vehicle with chief complaint of abdominal pain nausea and vomiting. The patient reports chronic epigastric abdominal pain but reports her symptoms began worsening 2 days ago she also reports associated episodes of vomiting 2 days ago that were nonbloody nonbilious and have since resolved, she does report persistent nausea and decreased appetite. She denies any subjective fevers or chills, she denies any increased output in her ileostomy. Reports compliance with her lactulose which she takes 3 times a day. She did report some lower extremity swelling. The patient denies any worsening abdominal distention, she denies any chest pain or worsening shortness of breath Apparently the patient was discharged 01/06 after being admitted here for hepatic encephalopathy with decompensated liver cirrhosis. In the ER the patient had a comprehensive workup CT abdomen and pelvis was consistent with cirrhosis with evidence of underlying portal hypertension, small to moderate amount of abdominal fluid and pelvic ascites which is decreased from prior CT, there was no obstruction, noted areas of acute gastroenteritis cannot be excluded. Abnormal labs include platelet 86,000, sodium 133, serum bicarb 20, creatinine 1.1, calcium 8.2, total bilirubin 2.9, AST 79 a LT 42 alk phos 291 troponin 0.191. The patient was given a liter of fluids , IV morphine and Zofran and recommended for admission Review of Systems Pertinent positives per HPI all other review of systems otherwise negative Past Medical History Past Medical History: Cancer, Diabetes Mellitus, Hypertension, Liver Disease, Myocardial Infarction ([place]), Renal Disease Additional Past Medical History / Comment(s): Hepatocellular liver cancer with chemo immobilization-last time being 2017, ascities with paracentesis's Sep 2019, nonalcoholic liver cirrhosis, chronic pancytopenia, chronic elevated ammonia levels, hepatic encephalopathy, chronic elevated LFTs, chronic abdominal pain, stomach ulcer, diverticular disease with ileostomy, IDDM type II, iron anemia, CKD stage III, nonsustained vtach, UTI, high ammonia levels Last Myocardial Infarction Date:: unk History of Any Multi-Drug Resistant Organisms: MRSA, VRE Date of last positivie culture/infection: 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 Past Anesthesia/Blood Transfusion Reactions: No Reported Reaction Past Psychological History: Anxiety, Depression Smoking Status: Former smoker Past Alcohol Use History: None Reported Past Drug Use History: None Reported - Past Family History Mother History Unknown: Yes Family Medical History: Congestive Heart Failure (CHF) Additional Family Medical History / Comment(s): Mother is 94 yrs old. Father Family Medical History: Chest Pain / Angina Additional Family Medical History / Comment(s): Father is . Medications and Allergies Home Medications Medication Instructions Recorded Confirmed Type Omeprazole [PriLOSEC] 20 mg PO BID 10/23/18 01/25/20 History Sucralfate [Carafate] 1 gm PO QID 10/23/18 01/25/20 History Insulin Regular, Human [NovoLIN R] 10 unit SQ AC-TID 10/24/18 01/25/20 History Cholecalciferol [Vitamin D3 (25 4,000 unit PO DAILY 01/16/19 01/25/20 History Mcg = 1000 Iu)] Ferrous Sulfate [Iron (65 MG 325 mg PO BID 01/31/19 01/25/20 History Elemental)] buPROPion HCL [Wellbutrin SR] 150 mg PO DAILY 06/12/19 01/25/20 History clonazePAM [KlonoPIN] 0.5 mg PO Q8H PRN 06/12/19 01/25/20 History Metoprolol Tartrate [Lopressor] 6.25 mg PO DAILY tab 10/04/19 01/25/20 Rx Torsemide [Demadex] 20 mg PO DAILY tab 11/21/19 01/25/20 Rx Isosorbide Mononitrate ER [Imdur] 30 mg PO DAILY@0800 11/25/19 01/25/20 History Spironolactone [Aldactone] 25 mg PO DAILY 11/25/19 01/25/20 History Lactulose [Cephulac] 30 gm PO TID 7 Days #1000 ml 11/30/19 01/25/20 Rx Dicyclomine [Bentyl] 20 mg PO QID 01/04/20 01/25/20 History Insulin NPH Human Isophane 18 unit SQ BID 01/04/20 01/25/20 History [humuLIN N] Morphine Sulfate ER [Ms Contin] 30 mg PO Q12HR 01/04/20 01/25/20 History Morphine Sulfate Ir [MSIR] 15 mg PO Q8H PRN 01/04/20 01/25/20 History Ondansetron HCl [Zofran] 8 mg PO DAILY 01/04/20 01/25/20 History Allergies Allergy/AdvReac Type Severity Reaction Status Date / Time amlodipine Allergy Rash/Hives Verified 01/25/20 12:13 oxycodone Allergy Rash/Hives Verified 01/25/20 12:13 Penicillins Allergy Rash/Hives Verified 01/25/20 12:13 hydromorphone [From Dilaudid] AdvReac Mild tactile Verified 01/25/20 12:13 disturbance GREG Inhibitors AdvReac Cough Verified 01/25/20 12:13 sodium dodecyclbenzene Allergy Rash/Hives Uncoded 11/06/19 13:17 sulfonate Physical Exam Vitals: Vital Signs Temp Pulse Resp BP Pulse Ox 01/25/20 10:29 69 18 118/68 98 01/25/20 09:35 98.9 F 68 18 112/54 100 Intake and Output 01/24/20 01/25/20 01/25/20 22:59 06:59 14:59 Other: Weight 86.183 kg Constitutional: No acute distress, conversant, pleasant Eyes: Anicteric sclerae, moist conjunctiva, no lid-lag, PERRLA ENMT: NC/AT,Oropharynx clear, no erythema, exudates Neck:Supple, FROM, no masses, or JVD, No carotid bruits; No thyromegaly Lungs: Clear to auscultation, Clear to percussion, Normal respiratory effort, no accessory muscle use Cardiovascular: Heart regular in rate and rhythm, No murmurs, gallops, or rubs no peripheral edema Abdominal: Soft tender to palpation in the epigastrium, obese moderately distended, ileostomy bag with output no guarding, no rebound or rigidity, Nor moactive bowel sounds Skin: Normal temperature, tone, texture, turgor, No induration No subcutaneous nodules, No rash, lesions, No ulcers Extremities:No digital cyanosis No clubbing, Pedal pulses intact and symmetrical Radial pulses intact and symmetrical Normal gait and station, No calf tenderness Psychiatric: Alert and oriented to person, place and time, Appropriate affect Intact judgement Neuro: Muscles Strength 5/5 in all 4 extremities, Sensation to light touch grossly present throughout, Cranial nerves II-XII grossly intact. No focal sensory deficits Results CBC & Chem 7: 01/25/20 10:07 01/25/20 10:07 Labs: Abnormal Lab Results - Last 24 Hours (Table) 01/25/20 01/25/20 01/25/20 Range/Units 10: 10:07 10:07 RBC 3.49 L (3.80-5.40) m/uL MCV 104.9 H (80.0-100.0) fL Plt Count 86 L (150-450) k/uL Lymphocytes # 0.8 L (1.0-4.8) k/uL PT 13.4 H (9.0-12.0) sec INR 1.3 H (<1.2) Sodium 133 L (137-145) mmol/L Carbon Dioxide 20 L (22-30) mmol/L BUN 23 H (7-17) mg/dL Creatinine 1.10 H (0.52-1.04) mg/dL Glucose 112 H (74-99) mg/dL Calcium 8.2 L (8.4-10.2) mg/dL Total Bilirubin 2.9 H (0.2-1.3) mg/dL AST 79 H (14-36) U/L ALT 42 H (4-34) U/L Alkaline Phosphatase 291 H (38-126) U/L Troponin I (0.000-0.034) ng/mL Albumin 2.7 L (3.5-5.0) g/dL Urine Nitrite (Negative) Ur Leukocyte Esterase (Negative) Urine WBC (0-5) /hpf Urine Bacteria (None) /hpf Urine Mucus (None) /hpf 01/25/20 01/25/20 Range/Units 10:07 12:19 RBC (3.80-5.40) m/uL MCV (80.0-100.0) fL Plt Count (150-450) k/uL Lymphocytes # (1.0-4.8) k/uL PT (9.0-12.0) sec INR (<1.2) Sodium (137-145) mmol/L Carbon Dioxide (22-30) mmol/L BUN (7-17) mg/dL Creatinine (0.52-1.04) mg/dL Glucose (74-99) mg/dL Calcium (8.4-10.2) mg/dL Total Bilirubin (0.2-1.3) mg/dL AST (14-36) U/L ALT (4-34) U/L Alkaline Phosphatase (38-126) U/L Troponin I 0.191 H* (0.000-0.034) ng/mL Albumin (3.5-5.0) g/dL Urine Nitrite Positive H (Negative) Ur Leukocyte Esterase Small H (Negative) Urine WBC 12 H (0-5) /hpf Urine Bacteria Many H (None) /hpf Urine Mucus Rare H (None) /hpf Assessment and Plan Assessment: Abdominal pain Elevated troponin Liver cirrhosis Type 2 diabetes Chronic kidney disease stage III History of hepatocellular carcinoma History of recurrent ascites History of hepatic encephalopathy Plan: Patient is placed in observation anticipate a less than 2 midnight stay with acute on chronic abdominal pain and workup with CT abdomen and pelvis, showing nothing acute however unable to rule out gastroenteritis. Patient patient observation with plans for hydration, supportive care with antiemetics and pain medication. The patient started to have elevated troponin significance unlikely cardiac in the setting of chronic kidney disease stage III, EKG also shows no suggestion of acute ischemia. cardiology has been consulted from the ER. She has also been consulted. Patient's home medications resumed. Continue to monitor closely CODE STATUS: Full code Anticipated discharge: 1-[address]: Home Prophylaxis: PPI therapy and SCDs Greater than 60 minutes was spent in evaluation of this patient
[2020-01-25] MEDS: DICYCLOMINE 20 MG TAB PO SCH ×3 (14:39→22:00)
[2020-01-25] MEDS: SUCRALFATE 1 GM TAB PO SCH ×3 (14:40→22:00)
[2020-01-25] MEDS: MORPHINE SULFATE ER 30 MG TABLET PO SCH (15:41)
[2020-01-25] MEDS: LACTULOSE 20 GM/30 ML CUP PO SCH ×2 (18:29→22:04)
[2020-01-25] MEDS: INSULIN REGULAR 100 UNIT/ML VIAL SQ SCH (20:42)
[2020-01-25] MEDS ORDERED: NON FORMULARY DRUG (Omeprazole 20 MG) PO SCH (21:00)
[2020-01-25 21:14] LABS: Glucose,Whole Blood 125 mg/dL (75-99)
[2020-01-25] MEDS: FERROUS SULFATE 325 MG TAB PO SCH (22:00)
[2020-01-25] MEDS: INSULIN NPH 300 UNIT/3 ML VIAL SQ SCH (22:01)
--- NOTE | 2020-01-25 23:10 | CONS ---
CONSULTATION Mrs. Lucero is a 74-year-old female with known history of liver cancer with nonalcoholic liver cirrhosis since 2007 that has been relatively stable, according to her, but was recently admitted to the hospital with change in mental status. She has history of diabetes, chronic kidney disease, history of recurrent ascites who has been having nausea and vomiting over the last 2 days and she has some chest discomfort. In view of that and because her troponin was mildly elevated, cardiology consultation was requested. The patient is not active physically. She feels tired. She denies any symptoms of chest pain. She denies any dizziness or palpitations. She has some peripheral edema. No PND, no orthopnea. She denies any prior cardiac history, although she has been told that she had a heart murmur. Her coronary risk factors are negative for smoking. She is diabetic, hypertensive. Her lipid profile is not available. She is on Klonopin, Wellbutrin, Demodex, Carafate, Aldactone 25 mg daily, Prilosec 20 mg twice a day, metoprolol tartrate 6.25 mg daily, isosorbide mononitrate 30 mg daily, insulin, and vitamin D. REVIEW OF SYSTEMS: RESPIRATORY system: She had dyspnea on exertion. No recent wheezing or cough. No history of obstructive lung disease. GI system: She had nausea and vomiting, history of abdominal discomfort and the ascites. system: No dysuria or hematuria. Nervous system: No history of stroke or seizure. PHYSICAL EXAMINATION: She is a 74-year-old female, alert, oriented, no apparent distress. Blood pressure 180/60 with a heart rate in the 80s. HEAD: Normocephalic. EYES sclerae anicteric. Neck good carotid upstroke with transmitted murmur. LUNGS: Clear to auscultation. HEART: Regular rate and rhythm S1, S2. No S3 with a systolic murmur heard at the base, 3/6. No diastolic murmur. No rub. ABDOMEN: Soft, mildly distended, nontender. EXTREMITIES: 1+ edema bilaterally. LAB DATA: Lab data revealed BUN and creatinine 23 and 1.1, hemoglobin of 11.8. Troponin 0.191. AST of 79, ALT of 42. Reviewing the prior testing, patient had abnormal troponins since December 2018 on multiple admissions. EKG revealed sinus mechanism with right bundle branch block that was noted in the past and rare PVCs and borderline right axis deviation. Her abdominal CT scan that was performed today revealed cirrhosis, underlying portal hypertension with evidence of ascites. She underwent a liver MRI in November that revealed a gross hepatocellular carcinoma. IMPRESSION: 1. Nausea and vomiting and abdominal discomfort, most likely related to hepatocellular malignancy and recurrent ascites. 2. Mild troponin elevation noted in the past without significant changes, probably related to a primary malignancy. 3. Aortic valve murmur, suggestive of at least moderate aortic stenosis. 4. History of hypertension. 5. History of diabetes. RECOMMENDATIONS: From the cardiac standpoint, I will obtain an echocardiogram with Doppler to rule out any significant changes. The patient is not a candidate for any aggressive workup. Depending on her progress, further recommendation will be made. Thank you for this consult. We will follow with you. MMODL / IJN: [id number] /
[2020-01-25] MEDS ORDERED: MAG HYDROX/AL HYDROX/SIMETH 30 ML CUP PO PRN (23:45)
[2020-01-25] MEDS ORDERED: MORPHINE SULFATE 4 MG/ML SYRINGE IVP PRN (23:45)
[2020-01-26 07:01] LABS: Glucose,Whole Blood 69 mg/dL (75-99)
[2020-01-26] MEDS: INSULIN REGULAR 100 UNIT/ML VIAL SQ SCH ×3 (07:11→18:16)
[2020-01-26 07:16] LABS: Glucose,Whole Blood 78 mg/dL (75-99)
[2020-01-26] MEDS ORDERED: ISOSORBIDE MONONITRATE ER 30 MG TAB.ER.24H PO SCH (08:00)
[2020-01-26 08:47] LABS: HCT 37.4 % (34.0-46.0); HGB 11.9 gm/dL (11.4-16.0); Hypochromasia Slight; MCH 34.9 pg (25.0-35.0); MCHC 31.8 g/dL (31.0-37.0); MCV 109.5 fL (80.0-100.0); Macrocytosis Marked; RBC 3.41 m/uL (3.80-5.40); RDW 13.9 % (11.5-15.5); WBC 3.6 k/uL (3.8-10.6)
[2020-01-26 08:50] LABS: Platelet Count 83 k/uL (150-450)
[2020-01-26] MEDS ORDERED: ASPIRIN 325 MG TAB PO SCH (09:00)
[2020-01-26 09:01] LABS: Calcium 8.3 mg/dL (8.4-10.2); Magnesium 1.7 mg/dL (1.6-2.3); Potassium 4.3 mmol/L (3.5-5.1)
[2020-01-26] MEDS: FERROUS SULFATE 325 MG TAB PO SCH ×2 (09:29→20:32)
[2020-01-26] MEDS: SUCRALFATE 1 GM TAB PO SCH ×4 (09:29→21:13)
[2020-01-26] MEDS: DICYCLOMINE 20 MG TAB PO SCH ×4 (09:29→21:13)
[2020-01-26] MEDS: METOPROLOL TARTRATE 12.5 MG TAB PO SCH (09:29)
[2020-01-26] MEDS: LACTULOSE 20 GM/30 ML CUP PO SCH ×3 (09:29→21:12)
[2020-01-26] MEDS: MORPHINE SULFATE ER 30 MG TABLET PO SCH ×2 (09:30→20:32)
[2020-01-26] MEDS: buPROPion SR 150 MG TABLET.ER PO SCH (09:31)
[2020-01-26] MEDS: SPIRONOLACTONE 25 MG TAB PO SCH (09:31)
[2020-01-26] MEDS: PANTOPRAZOLE 40 MG/10 ML VIAL IV SCH (09:31)
[2020-01-26] MEDS: TORSEMIDE 20 MG TAB PO SCH (09:31)
[2020-01-26] MEDS: CHOLECALCIFEROL 1,000 UNIT TAB PO SCH (09:36)
[2020-01-26] MEDS: INSULIN NPH 300 UNIT/3 ML VIAL SQ SCH ×2 (10:00→21:13)
[2020-01-26] MEDS: SODIUM CHLORIDE 0.9% 1,000 ML IV SCH (10:04)
--- NOTE | 2020-01-26 11:00 | ECHOF ---
Referral Reason:as MEASUREMENTS -------- HEIGHT: 175.3 cm WEIGHT: 86.2 kg BP: 118/68 RVIDd: 3.4 cm (< 3.3) IVSd: 1.0 cm (0.6 - 1.1) LVIDd: 6.0 cm (3.9 - 5.3) LVPWd: 1.5 cm (0.6 - 1.1) IVSs: 1.6 cm LVIDs: 4.0 cm LVPWs: 1.6 cm LAESV Index (A-L): 53.62 ml/m Ao Diam: 3.1 cm (2.0 - 3.7) AV Cusp: 1.2 cm (1.5 - 2.6) MV EXCURSION: 17.838 mm (> 18.000) MV EF SLOPE: 97 mm/s (70 - 150) EPSS: 1.0 cm MV E Delroy: 1.09 m/s MV DecT: 182 ms MV A Delroy: 0.94 m/s MV E/A Ratio: 1.17 AV maxP.83 mmHg AV meanP.59 mmHg RAP: 5.00 mmHg RVSP: 33.09 mmHg FINDINGS -------- Sinus rhythm. This was a technically adequate study. The left ventricular size is normal. There is moderate concentric left ventricular hypertrophy. O verall left ventricular systolic function is low-normal with, an EF between 50 - 55 %. Increased La p Grade II Diastolic Dysfunction. Basal lateral LV wall motion is hypokinetic. Basal inferior LV wall motion is hypokinetic. The right ventricle is mildly enlarged. LA is severely dilated >40 ml/m2 The right atrium was not well visualized. Interatrial and interventricular septum intact. There is no evidence of aortic regurgitation. There is moderate aortic stenosis present. Peak/wilmer n gradient across the Aortic Valve is 41.83mmHg / 26.59mmHg. Uxlxszdo-lf-buqekf mitral regurgitation is present. Mild tricuspid regurgitation present. There is borderline pulmonary artery hypertension. The righ t ventricular systolic pressure, as measured by Doppler, is 33.09mmHg. There is no pulmonic regurgitation present. The aortic root size is normal. IVC Not well visulized. There is no pericardial effusion. Pleural Effusion with Fibrin. CONCLUSIONS -------- 1. Sinus rhythm. 2. This was a technically adequate study. 3. The left ventricular size is normal. 4. There is moderate concentric left ventricular hypertrophy. 5. Overall left ventricular systolic function is low-normal with, an EF between 50 - 55 %. 6. Increased Lap Grade II Diastolic Dysfunction. 7. Basal lateral LV wall motion is hypokinetic. 8. Basal inferior LV wall motion is hypokinetic. 9. The right ventricle is mildly enlarged. 10. LA is severely dilated >40 ml/m2 11. The right atrium was not well visualized. 12. Interatrial and interventricular septum intact. 13. There is no evidence of aortic regurgitation. 14. There is moderate aortic stenosis present. 15. Peak/mean gradient across the Aortic Valve is 41.83mmHg / 26.59mmHg. 16. Ladvewve-cj-acpkku mitral regurgitation is present. 17. Mild tricuspid regurgitation present. 18. There is borderline pulmonary artery hypertension. 19. The right ventricular systolic pressure, as measured by Doppler, is 33.09mmHg. 20. There is no pulmonic regurgitation present. 21. The aortic root size is normal. 22. IVC Not well visulized. 23. There is no pericardial effusion. 24. Pleural Effusion with Fibrin. 25. Consider JORDAN if clinically indicated CASTING PLUG ASSEMBLER: Margot Paz RDCS
[2020-01-26 12:17] LABS: Glucose,Whole Blood 110 mg/dL (75-99)
[2020-01-26] MEDS ORDERED: CEPHALEXIN 500 MG CAP PO STA (14:42)
--- NOTE | 2020-01-26 15:50 | P.PN ---
Subjective Progress Note Date: 01/26/20 This is a pleasant 74-year-old female patient with history of liver cancer with nonalcoholic liver cirrhosis since 2007 which has been relatively stable according to her recently admitted to the hospital with change in mental status. She has a history of diabetes, chronic kidney disease, recurrent ascites. She presented to the hospital with complaints of having nausea and vomiting over the last 2 days as well as some chest discomfort. In view of the chest discomfort and because her troponin was mildly elevated cardiology consultation was requested. Overall, the patient is feeling fairly well today. She is tired. She denies any further complaints of chest discomfort. She has no dizziness or palpitations. She does have some peripheral edema which she feels is worse compared to her usual. She denies any orthopnea or PND. Troponin levels came back at 0.191, 0.151 and 0.141. Labs this morning showed normal BUN and creatinine, LDL 57, magnesium 1.7, potassium 4.3. Echocardiogram completed yesterday revealed low-normal LV systolic function with an ejection fraction between 50-55%, grade 2 diastolic dysfunction, moderate concentric LVH, basal lateral LV wall motion hypokinesis and basal inferior LV wall motion hypokinesis, moderate aortic stenosis with a peak gradient of 41.83 mmHg and mean gradient of 26.59 mmHg, moderate to severe MR, mild TR and borderline pulmonary hypertension. Objective - Vital Signs Vital signs: Vital Signs Temp 98.2 F 01/26/20 12:00 Pulse 60 01/26/20 12:00 Resp 16 01/26/20 12:00 BP 100/50 01/26/20 12:00 Pulse Ox 98 01/26/20 12:00 Intake & Output 01/25/20 01/26/20 01/26/20 18:59 06:59 18:59 Intake Total 780 720 Balance 780 720 Weight 86.183 kg 92.1 kg Intake: Oral 780 720 Other: # Voids 1 1 - Exam PHYSICAL EXAMINATION: HEENT: Head is atraumatic, normocephalic. Pupils equal, round. Neck is supple. There is no elevated jugular venous pressure. HEART EXAMINATION: Heart sounds regular, S1 and S2 with systolic ejection murmur at the base. CHEST EXAMINATION: Lungs are clear to auscultation. No chest wall tenderness is noted on palpation or with deep breathing. ABDOMEN: Soft, mildly distended, nontender. Bowel sounds are heard. No organomegaly noted. EXTREMITIES: Evidence of 1+ peripheral edema and no calf tenderness noted. NEUROLOGIC patient is awake, alert and oriented x3. . - Labs CBC & Chem 7: 01/26/20 07:48 01/26/20 07:48 Labs: Abnormal Lab Results - Last 24 Hours (Table) 01/25/20 01/25/20 01/25/20 Range/Units 15:25 21:09 21:46 WBC (3.8-10.6) k/uL RBC (3.80-5.40) m/uL MCV (80.0-100.0) fL Plt Count (150-450) k/uL Macrocytosis Sodium (137-145) mmol/L Carbon Dioxide (22-30) mmol/L POC Glucose (mg/dL) 125 H (75-99) mg/dL Calcium (8.4-10.2) mg/dL Troponin I 0.151 H* 0.141 H* (0.000-0.034) ng/mL 01/26/20 01/26/20 01/26/20 Range/Units 07:00 07:48 07:48 WBC 3.6 L (3.8-10.6) k/uL RBC 3.41 L (3.80-5.40) m/uL MCV 109.5 H (80.0-100.0) fL Plt Count 83 L (150-450) k/uL Macrocytosis Marked A Sodium 135 L (137-145) mmol/L Carbon Dioxide 21 L (22-30) mmol/L POC Glucose (mg/dL) 69 L (75-99) mg/dL Calcium 8.3 L (8.4-10.2) mg/dL Troponin I (0.000-0.034) ng/mL 01/26/20 Range/Units 12:15 WBC (3.8-10.6) k/uL RBC (3.80-5.40) m/uL MCV (80.0-100.0) fL Plt Count (150-450) k/uL Macrocytosis Sodium (137-145) mmol/L Carbon Dioxide (22-30) mmol/L POC Glucose (mg/dL) 110 H (75-99) mg/dL Calcium (8.4-10.2) mg/dL Troponin I (0.000-0.034) ng/mL Microbiology - Last 24 Hours (Table) 01/25/20 12:19 Urine Culture - Preliminary Urine,Voided Gram Neg Bacilli Assessment and Plan Assessment: #1 nausea and vomiting and abdominal discomfort, likely related to hepatocellular malignancy and recurrent ascites #2 mild troponin elevation noted in the past without significant changes, probably related to primary malignancy #3 moderate aortic stenosis #4 moderate to severe mitral regurgitation #5 hypertension #6 diabetes Plan: From cardiology's perspective, medications reviewed and we'll continue the same. The patient is not a candidate for aggressive cardiac workup. At this time we'll follow the patient on an as-needed basis. Please do not hesitate to contact us with questions. STAFFING RECRUITER note has been reviewed, I agree with a documented findings and plan of care. Patient was seen and examined.
[2020-01-26 17:08] LABS: Glucose,Whole Blood 80 mg/dL (75-99)
--- NOTE | 2020-01-26 19:01 | P.PN ---
Subjective Progress Note Date: 01/26/20 Patient seen and examined at bedside, reports her abdominal pain is much improved denies any significant nausea or vomiting. Patient seen by cardiology echocardiogram showed preserved ejection fraction with a grade 2 diastolic dysfunction severely dilated left atrium and moderate to severe MR and moderate aortic stenosis Objective - Vital Signs Vital signs: Vital Signs Temp 98.9 F 01/26/20 16:00 Pulse 58 L 01/26/20 16:00 Resp 16 01/26/20 16:00 BP 104/51 01/26/20 16:00 Pulse Ox 98 01/26/20 16:00 Intake & Output 01/25/20 01/26/20 01/26/20 18:59 06:59 18:59 Intake Total 780 1080 Balance 780 1080 Weight 86.183 kg 92.1 kg Intake: Oral 780 1080 Other: # Voids 1 1 - Exam Constitutional: No acute distress, conversant, pleasant Eyes: Anicteric sclerae, moist conjunctiva, no lid-lag, PERRLA ENMT: NC/AT,Oropharynx clear, no erythema, exudates Neck:Supple, FROM, no masses, or JVD, No carotid bruits; No thyromegaly Lungs: Clear to auscultation, Clear to percussion, Normal respiratory effort, no accessory muscle use Cardiovascular: Heart regular in rate and rhythm, No murmurs, gallops, or rubs no peripheral edema Abdominal: Soft Nontender, nom distended, no guarding, no rebound or rigidity, Normoactive bowel sounds No hepatomegaly, No splenomegaly, No palpable mass No abdominal wall hernia noted Skin: Normal temperature, tone, texture, turgor, No induration No subcutaneous nodules, No rash, lesions, No ulcers Extremities:No digital cyanosis No clubbing, Pedal pulses intact and symmetrical Radial pulses intact and symmetrical Normal gait and station, No calf tenderness Psychiatric: Alert and oriented to person, place and time, Appropriate affect Intact judgement Neuro: Muscles Strength 5/5 in all 4 extremities, Sensation to light touch grossly present throughout, Cranial nerves II-XII grossly intact. No focal sensory deficits - Labs CBC & Chem 7: 01/26/20 07:48 01/26/20 07:48 Labs: Abnormal Lab Results - Last 24 Hours (Table) 01/25/20 01/25/20 01/26/20 Range/Units 21:09 21:46 07:00 WBC (3.8-10.6) k/uL RBC (3.80-5.40) m/uL MCV (80.0-100.0) fL Plt Count (150-450) k/uL Macrocytosis Sodium (137-145) mmol/L Carbon Dioxide (22-30) mmol/L POC Glucose (mg/dL) 125 H 69 L (75-99) mg/dL Calcium (8.4-10.2) mg/dL Troponin I 0.141 H* (0.000-0.034) ng/mL 01/26/20 01/26/20 01/26/20 Range/Units 07:48 07:48 12:15 WBC 3.6 L (3.8-10.6) k/uL RBC 3.41 L (3.80-5.40) m/uL MCV 109.5 H (80.0-100.0) fL Plt Count 83 L (150-450) k/uL Macrocytosis Marked A Sodium 135 L (137-145) mmol/L Carbon Dioxide 21 L (22-30) mmol/L POC Glucose (mg/dL) 110 H (75-99) mg/dL Calcium 8.3 L (8.4-10.2) mg/dL Troponin I (0.000-0.034) ng/mL Microbiology - Last 24 Hours (Table) 01/25/20 12:19 Urine Culture - Preliminary Urine,Voided Gram Neg Bacilli Assessment and Plan Assessment: Abdominal pain * Secondary to underlying liver cirrhosis due to underlying hepatocellular carcinoma superimposed on a possible gastroenteritis * Patient requesting to see GI followed by Dr. Valverde Elevated troponin * Patient seen and cleared by cardiology Liver cirrhosis * Continue metoprolol, spironolactone, and torsemide Urinary tract infection * Preliminary growing gram-negative bacilli patient started on Keflex pending urine cultures Type 2 diabetes * Blood sugar stable continue current regimen Chronic kidney disease stage III * Stable chronic kidney disease History of hepatocellular carcinoma History of recurrent ascites History of hepatic encephalopathy Disposition * Follow-up evaluation by GI likely discharge within the next 24 hours
[2020-01-26 20:26] LABS: Glucose,Whole Blood 161 mg/dL (75-99)
[2020-01-26] MEDS: CEPHALEXIN 500 MG CAP PO SCH (20:32)
[2020-01-27 06:27] VITALS: TEMP 98.9
[2020-01-27 06:51] LABS: Glucose,Whole Blood 139 mg/dL (75-99)
[2020-01-27] MEDS: INSULIN REGULAR 100 UNIT/ML VIAL SQ SCH ×2 (08:09→12:38)
[2020-01-27] MEDS: PANTOPRAZOLE 40 MG/10 ML VIAL IV SCH (08:10)
[2020-01-27] MEDS: DICYCLOMINE 20 MG TAB PO SCH ×2 (08:10→12:38)
[2020-01-27] MEDS: CEPHALEXIN 500 MG CAP PO SCH (08:10)
[2020-01-27] MEDS: METOPROLOL TARTRATE 12.5 MG TAB PO SCH (08:10)
[2020-01-27] MEDS: SUCRALFATE 1 GM TAB PO SCH ×2 (08:10→12:38)
[2020-01-27] MEDS: SPIRONOLACTONE 25 MG TAB PO SCH (08:10)
[2020-01-27] MEDS: buPROPion SR 150 MG TABLET.ER PO SCH (08:10)
[2020-01-27] MEDS: TORSEMIDE 20 MG TAB PO SCH (08:11)
[2020-01-27] MEDS: CHOLECALCIFEROL 1,000 UNIT TAB PO SCH (08:11)
[2020-01-27] MEDS: FERROUS SULFATE 325 MG TAB PO SCH (08:11)
[2020-01-27 08:12] LABS: Albumin 2.1 g/dL (3.5-5.0); Calcium 7.8 mg/dL (8.4-10.2); Potassium 4.7 mmol/L (3.5-5.1); Total Bilirubin 1.8 mg/dL (0.2-1.3); Total Protein 5.5 g/dL (6.3-8.2)
[2020-01-27] MEDS: INSULIN NPH 300 UNIT/3 ML VIAL SQ SCH (08:12)
[2020-01-27] MEDS: LACTULOSE 20 GM/30 ML CUP PO SCH (08:13)
[2020-01-27] MEDS: MORPHINE SULFATE ER 30 MG TABLET PO SCH (08:19)
--- NOTE | 2020-01-27 11:39 | CONS ---
CONSULTATION DATE OF DICTATION: 01/27/2020 REASON FOR CONSULTATION: Right upper quadrant abdominal pain. HISTORY OF PRESENT ILLNESS: The patient is a 74-year-old pleasant white female, known to me from her previous multiple hospitalizations. She has history of nonalcoholic cirrhosis of the liver complicated with hepatocellular carcinoma, for which she was treated at [facility] about 2 years ago. She follows with Dr. Luther, oncologist in the [place] area, and has an appointment to see him this Wednesday. The patient stated she had an MRI of the liver done 2 weeks ago, results of which are not available at the time of this dictation. The patient was admitted to the hospital 3 days ago with severe right upper quadrant abdominal pain as well as epigastric pain associated with nausea, vomiting. The patient has history of chronic abdominal pain for almost 2 years' duration. In the past she was investigated with an upper endoscopy and multiple CT scans that were unremarkable other than a stable lesion in the liver. Today she is feeling better. Abdominal pain has improved. She is on a full liquid diet, tolerating well. She had no further episodes of nausea, vomiting. In the emergency room she did have a CT of the abdomen and pelvis done on January 24 that showed liver cirrhosis with portal hypertension. There was a small to moderate amount of ascites noted. No bowel obstruction was seen. Evidence of cholecystectomy. No obvious lesions were noted in the liver. History of colostomy with a parastomal hernia noted. PAST MEDICAL HISTORY: Significant for nonalcoholic cirrhosis of the liver with portal hypertension and recurrent ascites, hepatocellular carcinoma treated with chemoembolization 2 years ago at [facility]. History of diabetes mellitus, hypertension, hyperlipidemia, coronary artery disease, status post VT in the past, chronic kidney disease. PAST SURGICAL HISTORY: Appendectomy, colostomy, cholecystectomy, hysterectomy, tonsillectomy, recurrent paracenteses. MEDICATIONS: Medications at home include Carafate, Prilosec, Novolin, vitamin D3, iron sulfate, Wellbutrin, Aldactone, Bentyl, Humulin, MS Contin, Zofran, Imdur, Klonopin. ALLERGIES: AMLODIPINE, PENICILLIN, GREG INHIBITORS. SOCIAL HISTORY: No smoking or alcohol use. FAMILY HISTORY: Mother congestive heart failure. Father chest pain/angina. REVIEW OF SYSTEMS: CARDIOPULMONARY: She denies any chest pain or shortness of breath. GENITOURINARY: No dysuria or hematuria. MUSCULOSKELETAL: Unremarkable. SKIN: Unremarkable. ENDOCRINE: Unremarkable. PSYCHIATRIC: Anxiety, depression. NEUROLOGY: Unremarkable. ENT/VISION: Unremarkable. CONSTITUTIONAL: No recent weight loss. HEMATOLOGY: Unremarkable. ONCOLOGY: History of hepatocellular carcinoma diagnosed 2 years ago. PHYSICAL EXAMINATION: She appears comfortable. No apparent distress. VITAL SIGNS: Stable. Blood pressure is 91/49, pulse rate 66, temperature 98.9. HEENT examination unremarkable. Conjunctivae pink. Sclerae anicteric. Oral cavity no lesions. NECK: No JVD or lymph node enlargement. CHEST: Clear to auscultation. HEART: Regular rate and rhythm. ABDOMEN: Soft. There was very minimal tenderness in the epigastric area. Bowel sounds are positive. No organomegaly. There is evidence of colostomy noted in the right lower quadrant area with a small parastomal hernia noted, but it was very benign. EXTREMITIES: No pedal edema. SKIN: No rashes. NEUROLOGIC: Alert and oriented x3. No focal deficits. LABS: Labs done at the time of admission to the hospital showed WBC 4.8, hemoglobin 11.8, platelets 86,000. INR 1.3. AST and ALT were 79 and 42, respectively. T-bilirubin 2.9. Alkaline phosphatase 291. Troponin was 0.141. Repeat labs today show T-bilirubin is 1.8, AST and ALT are 79 and 38, respectively, alkaline phosphatase 248. BUN and creatinine are 16 and 1.14, respectively. IMPRESSION: 1. Nonalcoholic cirrhosis of the liver with portal hypertension and ascites with gradual decompensation. She was noted to have mild elevation of serum transaminases and bilirubin around 1.8, all of which are stable from previous hospitalizations. 2. History of hepatocellular carcinoma diagnosed 2 years ago, status post chemoembolization at [facility]. Now she sees Dr. Luther, oncologist in the [place] area. She has an appointment this Wednesday. 3. Epigastric and right upper quadrant abdominal pain for the last 2 days' duration associated with nausea, vomiting, which is gradually improving. The patient has been maintained on Prilosec as well as Carafate for several months. She did have an upper endoscopy last year by me which showed some gastritis. She had a CT scan during this hospitalization that showed a mild to moderate amount of ascites and cirrhotic-appearing liver bowel obstruction. 4. History of diverticulitis, status post partial colon resection, with colostomy in place. 5. Elevated troponin. Cardiology is following the patient closely. RECOMMENDATIONS: 1. Will advance diet as tolerated. 2. Continue with Protonix 40 mg twice daily as well as Carafate 1 gram 4 times daily. 3. Patient takes Bentyl as needed for the abdominal pain, which she can continue for now. 4. Continue with Aldactone 25 mg daily for the ascites. 5. Advance her diet as tolerated. 6. If she is doing well, she can be discharged home with outpatient followup in 2 weeks. Thank you for this consultation. MMLOUL / IJN: [id number] /
[2020-01-27 11:58] LABS: Glucose,Whole Blood 80 mg/dL (75-99)
[2020-01-27 12:48] VITALS: BP 101/51; PULSE 58; RESP 18
--- NOTE | 2020-01-27 12:59 | P.DS ---
Providers Date of admission: 01/25/20 11:56 Expected date of discharge: 01/27/20 Attending physician: Anastacio Demarco MD Consults: 01/25/20 11:56 Consult Physician Urgent Consulting Provider: Mike Valverde Consult Reason/Comments: Cardiac evaluation Do you want consulting provider notified?: Yes 01/26/20 18:48 Consult Physician Routine Consulting Provider: Carley Valverde Consult Reason/Comments: N&V Do you want consulting provider notified?: Yes, Notify in am Primary care physician: Gilma Martinez Hospital Course: Discharge diagnoses Decompensated Liver cirrhosis due to [place] Hepatocellular carcinoma Nausea and vomiting Abdominal pain Urinary tract infection Type 2 diabetes Elevated troponin Chronic kidney disease stage III Grade 2 diastolic CHF Moderate to severe MR Moderate aortic stenosis Hospital course The patient is a 74-year-old female with a past medical history of liver cirrhosis due to [place] with recent hospitalizations for decompensated liver cirrhosis and hepatic encephalopathy who presented to the ER with chief complaint of abdominal pain nausea and vomiting, a workup with CT abdomen and pelvis were unremarkable except for liver cirrhosis with portal hypertension and a stable liver lesion. Patient was placed in observation for supportive care with antiemetics and medications and IV fluids she was also resumed on her home medications including metoprolol, spironolactone and torsemide. The patient is noted to have elevated troponin and cardiology was consulted echocardiogram performed showed preserved LVEF them but did show grade 2 diastolic dysfunction a severely dilated left atrium and moderate to severe MR and moderate severe aortic stenosis. Elevated troponins and was deemed secondary to underlying malignancy. The urinalysis was done and that will grew gram-negative bacilli the patient started on Keflex. The patient's diet was advanced and she was subsequently discharged home in stable condition and instructed to follow-up with GI and cardiology in 2 weeks. This discharge process took approximately 35 minutes Focused exam GI: No minimal tenderness in epigastric area bowel sounds are positive evidence of colostomy in the right lower quadrant with a small benign parastomal hernia Patient Condition at Discharge: Good Plan - Discharge Summary Discharge Rx Participant: No New Discharge Prescriptions: New Cephalexin [Keflex] 500 mg PO BID #5 cap Continue Sucralfate [Carafate] 1 gm PO QID Omeprazole [PriLOSEC] 20 mg PO BID Insulin Regular, Human [NovoLIN R] 10 unit SQ AC-TID Cholecalciferol [Vitamin D3 (25 Mcg = 1000 Iu)] 4,000 unit PO DAILY Ferrous Sulfate [Iron (65 MG Elemental)] 325 mg PO BID buPROPion HCL [Wellbutrin SR] 150 mg PO DAILY clonazePAM [KlonoPIN] 0.5 mg PO Q8H PRN PRN Reason: Anxiety Metoprolol Tartrate [Lopressor] 6.25 mg PO DAILY tab Torsemide [Demadex] 20 mg PO DAILY tab Isosorbide Mononitrate ER [Imdur] 30 mg PO DAILY@0800 Spironolactone [Aldactone] 25 mg PO DAILY Lactulose [Cephulac] 30 gm PO TID 7 Days #1000 ml Dicyclomine [Bentyl] 20 mg PO QID Insulin NPH Human Isophane [humuLIN N] 18 unit SQ BID Ondansetron HCl [Zofran] 8 mg PO DAILY Morphine Sulfate Ir [MSIR] 15 mg PO Q8H PRN PRN Reason: Breakthrough Pain Morphine Sulfate ER [Ms Contin] 30 mg PO Q12HR Discharge Medication List Omeprazole [PriLOSEC] 20 mg PO BID 10/23/18 [History] Sucralfate [Carafate] 1 gm PO QID 10/23/18 [History] Insulin Regular, Human [NovoLIN R] 10 unit SQ AC-TID 10/24/18 [History] Cholecalciferol [Vitamin D3 (25 Mcg = 1000 Iu)] 4,000 unit PO DAILY 01/16/19 [History] Ferrous Sulfate [Iron (65 MG Elemental)] 325 mg PO BID 01/31/19 [History] buPROPion HCL [Wellbutrin SR] 150 mg PO DAILY 06/12/19 [History] clonazePAM [KlonoPIN] 0.5 mg PO Q8H PRN 06/12/19 [History] Metoprolol Tartrate [Lopressor] 6.25 mg PO DAILY tab 10/04/19 [Rx] Torsemide [Demadex] 20 mg PO DAILY tab 11/21/19 [Rx] Isosorbide Mononitrate ER [Imdur] 30 mg PO DAILY@0800 11/25/19 [History] Spironolactone [Aldactone] 25 mg PO DAILY 11/25/19 [History] Lactulose [Cephulac] 30 gm PO TID 7 Days #1000 ml 11/30/19 [Rx] Dicyclomine [Bentyl] 20 mg PO QID 01/04/20 [History] Insulin NPH Human Isophane [humuLIN N] 18 unit SQ BID 01/04/20 [History] Morphine Sulfate ER [Ms Contin] 30 mg PO Q12HR 01/04/20 [History] Morphine Sulfate Ir [MSIR] 15 mg PO Q8H PRN 01/04/20 [History] Ondansetron HCl [Zofran] 8 mg PO DAILY 01/04/20 [History] Cephalexin [Keflex] 500 mg PO BID #5 cap 01/26/20 [Rx] Follow up Appointment(s)/Referral(s): Yuri Keith MD [STAFF PHYSICIAN] - 2 Weeks Carley Valverde MD [STAFF PHYSICIAN] - 2 Weeks Gilma Martinez MD [Primary Care Provider] - 1-2 days (Please call your primary physician on Wednesday to make a follow up appointment. ) Patient Instructions/Handouts: Chest Pain (DC), Urinary Tract Infection in Women (DC) Discharge Disposition: HOME SELF-CARE
== END 2020-01-27 13:25 | disposition home or self-care (01) ==
LOC: EC 09:31 → 3SCARD 11:56
PROVIDERS: ADMIT Family Medicine; ATTEND Family Medicine
DX: K75.81 Nonalcoholic steatohepatitis (NASH) (principal); K74.69 Other cirrhosis of liver; K76.6 Portal hypertension; R18.8 Other ascites; C22.0 Liver cell carcinoma; Z92.21 Personal history of antineoplastic chemotherapy; E11.22 Type 2 diabetes mellitus with diabetic chronic kidney disease; I12.0 Hypertensive chronic kidney disease with stage 5 chronic kidney disease or end stage renal disease; N18.3 Chronic kidney disease, stage 3 (moderate); I50.30 Unspecified diastolic (congestive) heart failure; I25.2 Old myocardial infarction; R11.2 Nausea with vomiting, unspecified; N39.0 Urinary tract infection, site not specified; R77.8 Other specified abnormalities of plasma proteins; D61.818 Other pancytopenia; F41.9 Anxiety disorder, unspecified; Z87.891 Personal history of nicotine dependence; I08.3 Combined rheumatic disorders of mitral, aortic and tricuspid valves; Z87.19 Personal history of other diseases of the digestive system; Z87.11 Personal history of peptic ulcer disease; Z86.14 Personal history of Methicillin resistant Staphylococcus aureus infection; Z93.2 Ileostomy status; Z90.49 Acquired absence of other specified parts of digestive tract; Z90.710 Acquired absence of both cervix and uterus; Z90.89 Acquired absence of other organs; Z82.49 Family history of ischemic heart disease and other diseases of the circulatory system; Z79.4 Long term (current) use of insulin; Z79.899 Other long term (current) drug therapy; Z79.891 Long term (current) use of opiate analgesic; Z88.5 Allergy status to narcotic agent; Z88.0 Allergy status to penicillin; Z88.8 Allergy status to other drugs, medicaments and biological substances
CPT/HCPCS: 96376 ×2; 96361 ×2; 96375 ×2; 93005 ×2; 96374; 99285; 36415; 93306; 80061; 80053 ×2; 80048; 82150; 83690; 83735; 84484; 85025; 85027; 85610; 85730; 81001; 87086; 87077; 87186; 74176; G0378 ×3; J2270 ×2; S0106 ×2; J2405; C9113 ×2

== ENCOUNTER 2020-02-03 15:07 | Inpatient (IN) | payer MEDICARE, OTHER ==
--- NOTE | 2020-02-03 15:26 | ED ---
Abdominal Pain HPI - General Chief Complaint: Abdominal Pain Stated Complaint: Ascites Time Seen by Provider: 02/03/20 15:07 Source: patient, EMS, RN notes reviewed, old records reviewed Mode of arrival: EMS Limitations: no limitations - History of Present Illness Initial Comments: This is a 74-year-old female with a history of hepatocellular carcinoma with ascites as well as other medical problems who presents with complaints of abdominal distention with upper abdominal pain also some nondescript chest pain. She states her last paracentesis was over a month ago. She also complains of edema to her lower extremities. She states that the pain is moderate in severity at this time to her abdomen. She denies any fevers chills sweats cough or phlegm production at this time. She also had some pounding heart sensation last night. MD Complaint: abdominal pain, other - Related Data Home Medications Medication Instructions Recorded Confirmed Sucralfate [Carafate] 1 gm PO QID 10/23/18 02/03/20 Insulin Regular, Human [NovoLIN R] 10 unit SQ AC-TID 10/24/18 02/03/20 Cholecalciferol [Vitamin D3 (25 4,000 unit PO DAILY 01/16/19 02/03/20 Mcg = 1000 Iu)] Ferrous Sulfate [Iron (65 MG 325 mg PO BID 01/31/19 02/03/20 Elemental)] buPROPion HCL [Wellbutrin SR] 150 mg PO DAILY 06/12/19 02/03/20 clonazePAM [KlonoPIN] 0.5 mg PO BID PRN 06/12/19 02/03/20 Isosorbide Mononitrate ER [Imdur] 30 mg PO DAILY@0800 11/25/19 02/03/20 Spironolactone [Aldactone] 25 mg PO DAILY 11/25/19 02/03/20 Dicyclomine [Bentyl] 20 mg PO QID 01/04/20 02/03/20 Insulin NPH Human Isophane 18 unit SQ BID 01/04/20 02/03/20 [humuLIN N] Morphine Sulfate ER [Ms Contin] 30 mg PO Q12HR 01/04/20 02/03/20 Morphine Sulfate Ir [MSIR] 15 mg PO Q8H PRN 01/04/20 02/03/20 Metoprolol Tartrate [Lopressor] 6.25 mg PO DAILY 02/03/20 02/03/20 Omeprazole Magnesium [PriLOSEC OTC] 20 mg PO BID 02/03/20 02/03/20 Ondansetron Odt [Zofran Odt] 8 mg PO DAILY 02/03/20 02/03/20 Previous Rx's Medication Instructions Recorded Torsemide [Demadex] 20 mg PO DAILY tab 11/21/19 Lactulose [Cephulac] 30 gm PO TID 7 Days #1000 ml 11/30/19 Allergies Allergy/AdvReac Type Severity Reaction Status Date / Time amlodipine Allergy Rash/Hives Verified 02/03/20 15:29 oxycodone Allergy Rash/Hives Verified 02/03/20 15:29 Penicillins Allergy Rash/Hives Verified 02/03/20 15:29 hydromorphone [From Dilaudid] AdvReac Mild tactile Verified 02/03/20 15:29 disturbance GREG Inhibitors AdvReac Cough Verified 02/03/20 15:29 sodium dodecyclbenzene Allergy Rash/Hives Uncoded 02/03/20 15:29 sulfonate Review of Systems ROS Statement: Those systems with pertinent positive or pertinent negative responses have been documented in the HPI. ROS Other: All systems not noted in ROS Statement are negative. Past Medical History Past Medical History: Cancer, Diabetes Mellitus, Hypertension, Liver Disease, Myocardial Infarction ([place]), Renal Disease Additional Past Medical History / Comment(s): Hepatocellular liver cancer with chemo immobilization-last time being 2017, ascities with paracentesis's Sep 2019, nonalcoholic liver cirrhosis, chronic pancytopenia, chronic elevated ammonia levels, hepatic encephalopathy, chronic elevated LFTs, chronic abdominal pain, stomach ulcer, diverticular disease with ileostomy, IDDM type II, iron anemia, CKD stage III, nonsustained vtach, UTI, high ammonia levels Last Myocardial Infarction Date:: unk History of Any Multi-Drug Resistant Organisms: MRSA, VRE Date of last positivie culture/infection: 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 Past Anesthesia/Blood Transfusion Reactions: No Reported Reaction Past Psychological History: Anxiety, Depression Smoking Status: Former smoker Past Alcohol Use History: None Reported Past Drug Use History: None Reported - Past Family History Mother History Unknown: Yes Family Medical History: Congestive Heart Failure (CHF) Additional Family Medical History / Comment(s): Mother is 94 yrs old. Father Family Medical History: Chest Pain / Angina Additional Family Medical History / Comment(s): Father is . General Exam - General Exam Comments Initial Comments: This is a well-developed well-nourished awake alert oriented 3 female Limitations: no limitations General appearance: alert, in no apparent distress Head exam: Present: atraumatic, normocephalic, normal inspection Eye exam: Present: normal appearance, PERRL, EOMI. Absent: scleral icterus, conjunctival injection, periorbital swelling ENT exam: Present: normal exam, mucous membranes moist Neck exam: Present: normal inspection, full ROM, other (No stridor JVD or bruits). Absent: tenderness, meningismus, lymphadenopathy Respiratory exam: Present: decreased breath sounds. Absent: respiratory distress, wheezes, rales, rhonchi, stridor Cardiovascular Exam: Present: regular rate, normal rhythm, normal heart sounds. Absent: systolic murmur, diastolic murmur, rubs, gallop, clicks GI/Abdominal exam: Present: soft, distended, tenderness (Mild epigastric dis comfort to palpation), normal bowel sounds. Absent: guarding, rebound, rigid Extremities exam: Present: normal inspection, full ROM, normal capillary refill, pedal edema. Absent: tenderness, joint swelling, calf tenderness Back exam: Present: normal inspection Neurological exam: Present: alert, oriented X3, CN II-XII intact Psychiatric exam: Present: normal affect, normal mood Skin exam: Present: warm, dry, intact, normal color. Absent: rash Course Vital Signs 02/03/20 15:09 Temperature 98.1 F Pulse Rate 63 Respiratory 16 Rate Blood Pressure 123/54 O2 Sat by Pulse 100 Oximetry Medical Decision Making - Medical Decision Making I did discuss findings with the patient and with Dr. Brown. Patient will be admitted interventional radiology will be consulted patient does have a prior history of elevated troponins - Lab Data Result diagrams: 02/03/20 15:16 02/03/20 15:16 Lab Results 02/03/20 02/03/20 02/03/20 Range/Units 15:16 15:16 15:16 WBC 5.0 (3.8-10.6) k/uL RBC 3.70 L (3.80-5.40) m/uL Hgb 12.8 (11.4-16.0) gm/dL Hct 38.8 (34.0-46.0) % MCV 105.0 H (80.0-100.0) fL MCH 34.7 (25.0-35.0) pg MCHC 33.1 (31.0-37.0) g/dL RDW 14.1 (11.5-15.5) % Plt Count 90 L (150-450) k/uL Neutrophils % 65 % Lymphocytes % 22 % Monocytes % 6 % Eosinophils % 4 % Basophils % 1 % Neutrophils # 3.3 (1.3-7.7) k/uL Lymphocytes # 1.1 (1.0-4.8) k/uL Monocytes # 0.3 (0-1.0) k/uL Eosinophils # 0.2 (0-0.7) k/uL Basophils # 0.0 (0-0.2) k/uL Macrocytosis Moderate PT 13.6 H (9.0-12.0) sec INR 1.4 H (<1.2) APTT 24.3 (22.0-30.0) sec Sodium (137-145) mmol/L Potassium (3.5-5.1) mmol/L Chloride (98-107) mmol/L Carbon Dioxide (22-30) mmol/L Anion Gap mmol/L BUN (7-17) mg/dL Creatinine (0.52-1.04) mg/dL Est GFR (CKD-EPI)AfAm (>60 ml/min/1.73 sqM) Est GFR (CKD-EPI)NonAf (>60 ml/min/1.73 sqM) Glucose (74-99) mg/dL Calcium (8.4-10.2) mg/dL Magnesium (1.6-2.3) mg/dL Total Bilirubin (0.2-1.3) mg/dL AST (14-36) U/L ALT (4-34) U/L Alkaline Phosphatase (38-126) U/L Ammonia (<30) umol/L Creatine Kinase (30-135) U/L Troponin I (0.000-0.034) ng/mL NT-Pro-B Natriuret Pep 928 pg/mL Total Protein (6.3-8.2) g/dL Albumin (3.5-5.0) g/dL Lipase (23-300) U/L 02/03/20 02/03/20 02/03/20 Range/Units 15:16 15:16 15:52 WBC (3.8-10.6) k/uL RBC (3.80-5.40) m/uL Hgb (11.4-16.0) gm/dL Hct (34.0-46.0) % MCV (80.0-100.0) fL MCH (25.0-35.0) pg MCHC (31.0-37.0) g/dL RDW (11.5-15.5) % Plt Count (150-450) k/uL Neutrophils % % Lymphocytes % % Monocytes % % Eosinophils % % Basophils % % Neutrophils # (1.3-7.7) k/uL Lymphocytes # (1.0-4.8) k/uL Monocytes # (0-1.0) k/uL Eosinophils # (0-0.7) k/uL Basophils # (0-0.2) k/uL Macrocytosis PT (9.0-12.0) sec INR (<1.2) APTT (22.0-30.0) sec Sodium 134 L (137-145) mmol/L Potassium 5.3 H (3.5-5.1) mmol/L Chloride 101 (98-107) mmol/L Carbon Dioxide 25 (22-30) mmol/L Anion Gap 8 mmol/L BUN 27 H (7-17) mg/dL Creatinine 1.31 H (0.52-1.04) mg/dL Est GFR (CKD-EPI)AfAm 47 (>60 ml/min/1.73 sqM) Est GFR (CKD-EPI)NonAf 41 (>60 ml/min/1.73 sqM) Glucose 149 H (74-99) mg/dL Calcium 8.2 L (8.4-10.2) mg/dL Magnesium 1.7 (1.6-2.3) mg/dL Total Bilirubin 3.2 H (0.2-1.3) mg/dL AST 119 H (14-36) U/L ALT 46 H (4-34) U/L Alkaline Phosphatase 343 H (38-126) U/L Ammonia 44 H (<30) umol/L Creatine Kinase 216 H (30-135) U/L Troponin I 0.137 H* (0.000-0.034) ng/mL NT-Pro-B Natriuret Pep pg/mL Total Protein 7.7 (6.3-8.2) g/dL Albumin 3.3 L (3.5-5.0) g/dL Lipase 42 (23-300) U/L - Radiology Data Radiology results: report reviewed (I did review the imaging and report no acute findings.), image reviewed Disposition Clinical Impression: Ascites, Atypical chest pain, Elevated troponin, Cancer, hepatocellular Disposition: ADMITTED IP TO THIS [facility] Condition: Fair Referrals: Gilma Martinez MD [Primary Care Provider] - 1-2 days
[2020-02-03 15:34] LABS: Basophils % (A) 1 %; Eosinophils # (A) 0.2 k/uL (0-0.7); Eosinophils % (A) 4 %; HCT 38.8 % (34.0-46.0); HGB 12.8 gm/dL (11.4-16.0); Lymphocytes # (A) 1.1 k/uL (1.0-4.8); Lymphocytes % (A) 22 %; MCH 34.7 pg (25.0-35.0); MCHC 33.1 g/dL (31.0-37.0); Macrocytosis Moderate; Mean Platelet Volume 10.7; Monocytes # (A) 0.3 k/uL (0-1.0); Monocytes % (A) 6 %; Neutrophils # (A) 3.3 k/uL (1.3-7.7); Neutrophils % (A) 65 %; RDW 14.1 % (11.5-15.5)
[2020-02-03] MEDS ORDERED: MORPHINE SULFATE 4 MG/ML SYRINGE IVP STA (15:38)
[2020-02-03 15:42] LABS: Platelet Count 90 k/uL (150-450)
[2020-02-03] MEDS ORDERED: ONDANSETRON 4 MG/2 ML VIAL IVP STA (15:46)
[2020-02-03 15:47] LABS: Albumin 3.3 g/dL (3.5-5.0); Calcium 8.2 mg/dL (8.4-10.2); Magnesium 1.7 mg/dL (1.6-2.3); Total Bilirubin 3.2 mg/dL (0.2-1.3); Total Protein 7.7 g/dL (6.3-8.2)
[2020-02-03 15:56] LABS: Potassium 5.3 mmol/L (3.5-5.1)
--- NOTE | 2020-02-03 16:04 | XR ---
EXAMINATION TYPE: XR chest 2V DATE OF EXAM: 02/03/2020 COMPARISON: 01/04/2020 HISTORY: Ascites. Abdominal pain TECHNIQUE: FINDINGS: There is no heart failure nor confluent pneumonic infiltrate. Costophrenic angles are clear . Bony thorax is intact. There are no hilar masses. IMPRESSION: No active cardiopulmonary disease. Normal heart. No change.
[2020-02-03 16:12] LABS: INR 1.4 (<1.2); Partial Thromboplastin Time 24.3 sec (22.0-30.0); Prothrombin Time 13.6 sec (9.0-12.0)
[2020-02-03] MEDS ORDERED: NALOXONE 0.4 MG/ML 1 ML VIAL IV PRN (16:28)
[2020-02-03] MEDS: SODIUM CHLORIDE 0.9% 1,000 ML IV SCH (16:57)
--- NOTE | 2020-02-03 17:33 | P.HPIM ---
History of Present Illness H&P Date: 02/03/20 Chief Complaint: Decompensated cirrhosis Patient is a 74-year-old female history of hepatocellular carcinoma, recurrent ascites secondary to decompensated cirrhosis, diabetes mellitus, chronic kidney disease stage III and hypertension presents to the ED for abdominal pain. Patient reports worsening abdominal distention since her discharge on 01/27/2020. Patient also reported palpitations that occurred last night as she was sitting. Patient states that the palpitations lasted for less than 1 minute and resolved spontaneously. Patient reports left-sided abdominal pain that radiates across her abdomen. Patient describes the pain as sharp in nature, 6 out of 10 in severity. Pain is nonradiating. Patient also reports lower extremity swelling that has been worsening over the past week. Patient reports being compliant with her medications including lactulose. She also reports some nausea but no vomiting. She denies any headache, fever or chills, cough, chest pain, shortness of breath, changes in urination or bowel habits. No changes in appetite or weight. She denies any dizziness, numbness/weakness/tingling of the extremities. Patient reports serial paracentesis usually every 2 months in the ED. Her last paracentesis was greater than 1 month ago according to her. In the ED, her vital signs were stable however she was initially hypotensive with B P of 91/49 which improved while in the ED to 132/61. CBC showed MCV of 105 and platelet count of 90. INR was 1.4. CMP showed sodium 134, potassium 5.3, BUN 27, creatinine 1.31, glucose 149, total bilirubin 3.2, AST 119, ALT 46, alkaline phosphatase 343. Ammonia level was 44. Troponin was 0.137. BNP was 928, chest x-ray was negative. Lipase was negative. Patient is admitted for decompensated cirrhosis with gastroenterology on consultation. Review of Systems Pertinent positives and negatives as discussed in HPI, a complete review of systems was performed and all other systems are negative. Past Medical History Past Medical History: Cancer, Diabetes Mellitus, Hypertension, Liver Disease, Myocardial Infarction ([place]), Renal Disease Additional Past Medical History / Comment(s): Hepatocellular liver cancer with chemo immobilization-last time being 2017, ascities with paracentesis's Sep 2019, nonalcoholic liver cirrhosis, chronic pancytopenia, chronic elevated amm onia levels, hepatic encephalopathy, chronic elevated LFTs, chronic abdominal pain, stomach ulcer, diverticular disease with ileostomy, IDDM type II, iron anemia, CKD stage III, nonsustained vtach, UTI, high ammonia levels Last Myocardial Infarction Date:: unk History of Any Multi-Drug Resistant Organisms: MRSA, VRE Date of last positivie culture/infection: 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 Past Anesthesia/Blood Transfusion Reactions: No Reported Reaction Past Psychological History: Anxiety, Depression Smoking Status: Former smoker Past Alcohol Use History: None Reported Past Drug Use History: None Reported - Past Family History Mother History Unknown: Yes Family Medical History: Congestive Heart Failure (CHF) Additional Family Medical History / Comment(s): Mother is 94 yrs old. Father Family Medical History: Chest Pain / Angina Additional Family Medical History / Comment(s): Father is . Medications and Allergies Home Medications Medication Instructions Recorded Confirmed Type Sucralfate [Carafate] 1 gm PO QID 10/23/18 02/03/20 History Insulin Regular, Human [NovoLIN R] 10 unit SQ AC-TID 10/24/18 02/03/20 History Cholecalciferol [Vitamin D3 (25 4,000 unit PO DAILY 01/16/19 02/03/20 History Mcg = 1000 Iu)] Ferrous Sulfate [Iron (65 MG 325 mg PO BID 01/31/19 02/03/20 History Elemental)] buPROPion HCL [Wellbutrin SR] 150 mg PO DAILY 06/12/19 02/03/20 History clonazePAM [KlonoPIN] 0.5 mg PO BID PRN 06/12/19 02/03/20 History Torsemide [Demadex] 20 mg PO DAILY tab 11/21/19 02/03/20 Rx Isosorbide Mononitrate ER [Imdur] 30 mg PO DAILY@0800 11/25/19 02/03/20 History Spironolactone [Aldactone] 25 mg PO DAILY 11/25/19 02/03/20 History Lactulose [Cephulac] 30 gm PO TID 7 Days #1000 ml 11/30/19 02/03/20 Rx Dicyclomine [Bentyl] 20 mg PO QID 01/04/20 02/03/20 History Insulin NPH Human Isophane 18 unit SQ BID 01/04/20 02/03/20 History [humuLIN N] Morphine Sulfate ER [Ms Contin] 30 mg PO Q12HR 01/04/20 02/03/20 History Morphine Sulfate Ir [MSIR] 15 mg PO Q8H PRN 01/04/20 02/03/20 History Metoprolol Tartrate [Lopressor] 6.25 mg PO DAILY 02/03/20 02/03/20 History Omeprazole Magnesium [PriLOSEC OTC] 20 mg PO BID 02/03/20 02/03/20 History Ondansetron Odt [Zofran Odt] 8 mg PO DAILY 02/03/20 02/03/20 History Allergies Allergy/AdvReac Type Severity Reaction Status Date / Time amlodipine Allergy Rash/Hives Verified 02/03/20 15:29 oxycodone Allergy Rash/Hives Verified 02/03/20 15:29 Penicillins Allergy Rash/Hives Verified 02/03/20 15:29 hydromorphone [From Dilaudid] AdvReac Mild tactile Verified 02/03/20 15:29 disturbance GREG Inhibitors AdvReac Cough Verified 02/03/20 15:29 sodium dodecyclbenzene Allergy Rash/Hives Uncoded 02/03/20 15:29 sulfonate Physical Exam Vitals: Vital Signs Temp Pulse Resp BP Pulse Ox 02/03/20 17:02 76 16 132/61 100 02/03/20 15:09 98.1 F 63 16 123/54 100 Intake and Output 02/03/20 02/03/20 02/03/20 06:59 14:59 22:59 Other: Weight 95.254 kg General: [non toxic], [no distress], [appears at stated age] Derm: [warm], [dry], [jaundiced] Head: [atraumatic], [normocephalic], [symmetric] Eyes: [EOMI], [no lid lag], [icteric sclera] Mouth: [no lip lesion], [mucus membranes moist] Cardiovascular: [S1S2 reg], [no murmur], [positive DP pulse bilateral], Lungs: [CTA bilateral], [no rhonchi, no rales] , [no accessory muscle use] Abdominal: [soft], [distended with tenderness to deep palpation in all 4 quadrants without rebound], [no guarding], [no appreciable organomegaly], [large hernia palpable], [ileostomy bag intact] Ext: [no gross muscle atrophy], [1+ pitting lower extremity bilateral edema], [no contractures] Neuro: [ CN II-XI grossly intact], [no focal neuro deficits] Psych: [Alert], [oriented], [appropriate affect] Results CBC & Chem 7: 02/03/20 15:16 02/03/20 15:16 Labs: Abnormal Lab Results - Last 24 Hours (Table) 02/03/20 02/03/20 02/03/20 Range/Units 15:16 15:16 15:16 RBC 3.70 L (3.80-5.40) m/uL MCV 105.0 H (80.0-100.0) fL Plt Count 90 L (150-450) k/uL PT 13.6 H (9.0-12.0) sec INR 1.4 H (<1.2) Sodium 134 L (137-145) mmol/L Potassium 5.3 H (3.5-5.1) mmol/L BUN 27 H (7-17) mg/dL Creatinine 1.31 H (0.52-1.04) mg/dL Glucose 149 H (74-99) mg/dL Calcium 8.2 L (8.4-10.2) mg/dL Total Bilirubin 3.2 H (0.2-1.3) mg/dL AST 119 H (14-36) U/L ALT 46 H (4-34) U/L Alkaline Phosphatase 343 H (38-126) U/L Ammonia (<30) umol/L Creatine Kinase 216 H (30-135) U/L Troponin I (0.000-0.034) ng/mL Albumin 3.3 L (3.5-5.0) g/dL 02/03/20 02/03/20 Range/Units 15:16 15:52 RBC (3.80-5.40) m/uL MCV (80.0-100.0) fL Plt Count (150-450) k/uL PT (9.0-12.0) sec INR (<1.2) Sodium (137-145) mmol/L Potassium (3.5-5.1) mmol/L BUN (7-17) mg/dL Creatinine (0.52-1.04) mg/dL Glucose (74-99) mg/dL Calcium (8.4-10.2) mg/dL Total Bilirubin (0.2-1.3) mg/dL AST (14-36) U/L ALT (4-34) U/L Alkaline Phosphatase (38-126) U/L Ammonia 44 H (<30) umol/L Creatine Kinase (30-135) U/L Troponin I 0.137 H* (0.000-0.034) ng/mL Albumin (3.5-5.0) g/dL Assessment and Plan Assessment: Abdominal pain likely related to decompensated cirrhosis Hyperkalemia Troponin elevation Hepatocellular carcinoma Chronic kidney disease stage III Type 2 diabetes mellitus with hyperglycemia Ileostomy with history of diverticulitis Macrocytosis with thrombocytopenia Her abdominal pain is likely related to abdominal distention from decompensated cirrhosis. Plans: Abdominal ultrasound to evaluate for ascites and IR consultation. Start Lasix 40 mg IV twice a day. Zofran as needed for nausea or vomiting. Continue Aldactone. Pain management with Morphine as needed. Restart Lactulose. Follow GI consultation. Potassium is 5.3. Sample is hemolyzed. Plans: Patient is on lactulose. Repeat BMP tomorrow morning. Troponin 0.137 with EKG showing sinus rhythm with occasional PVCs. Chronically elevated during previous admissions. Appears at baseline. Plans: Trend troponins/EKG to rule out ACS. Telemetry monitoring. Liver MRI in November shows interval growth in patients hepatocellular carcinoma. Plan: Follow GI consultation. BUN 27, creatinine 1.31. Appears at baseline. Plans: Continue to monitor. Repeat BMP tomorrow morning. [id number] glucose 149. Plans: Continue insulin home regimen. Insulin sliding scale. Regular Accu-Cheks. Hypoglycemic precautions. Stable. Plans: Local ostomy care. MCV 105. Platelet count 90. No signs of bleeding at this time. Plans: Repeat CBC tomorrow morning. DVT prophylaxis: [SCD boots] Discussed with: [Patient] Anticipated discharge: [1-2 days] Anticipated discharge place: [Home] A total of [35] minutes was spent on the care of this complex patient more than 50% of the time was spent in counseling and care coordination. Patient names her son Vijay decision maker if she can't make decisions for herself. Patient will like to be full code.
[2020-02-03 17:44] LABS: Glucose,Whole Blood 194 mg/dL (75-99)
[2020-02-03] MEDS: INSULIN ASPART (NovoLOG) 100 UNIT/ML VIAL SQ SCH (18:16)
[2020-02-03] MEDS: SUCRALFATE 1 GM TAB PO SCH ×2 (18:16→22:14)
[2020-02-03] MEDS: DICYCLOMINE 20 MG TAB PO SCH ×2 (18:16→22:14)
[2020-02-03] MEDS: INSULIN REGULAR 100 UNIT/ML VIAL SQ SCH (18:43)
--- NOTE | 2020-02-03 20:31 | US ---
EXAMINATION TYPE: US abdomen limited DATE OF EXAM: 02/03/2020 COMPARISON: CLINICAL HISTORY: abdominal distention, fluid with cirrhosis. Abdominal ascites seen in all 4 quadrants with largest pocket in LLQ measuring 8.4cm IMPRESSION there is moderate amount of ascites fluid.:
[2020-02-03 20:43] LABS: Glucose,Whole Blood 124 mg/dL (75-99)
[2020-02-03] MEDS: LACTULOSE 20 GM/30 ML CUP PO SCH (22:14)
[2020-02-03] MEDS: MORPHINE SULFATE ER 30 MG TABLET PO SCH (22:14)
[2020-02-03] MEDS: FUROSEMIDE 10 MG/ML 4 ML VIAL IV SCH (22:15)
[2020-02-03] MEDS: FERROUS SULFATE 325 MG TAB PO SCH (22:15)
[2020-02-03] MEDS: INSULIN NPH 300 UNIT/3 ML VIAL SQ SCH (22:15)
[2020-02-03] MEDS: MORPHINE SULFATE 4 MG/ML SYRINGE IV PRN (22:20)
[2020-02-04] MEDS: MORPHINE SULFATE IR 15 MG TABLET PO PRN (02:13)
[2020-02-04] MEDS: MORPHINE SULFATE 4 MG/ML SYRINGE IV PRN ×2 (03:55→11:41)
[2020-02-04 05:00] LABS: Basophils % (A) 0 %; Eosinophils # (A) 0.2 k/uL (0-0.7); Eosinophils % (A) 4 %; HCT 35.1 % (34.0-46.0); HGB 11.7 gm/dL (11.4-16.0); Lymphocytes % (A) 24 %; MCH 35.6 pg (25.0-35.0); MCHC 33.4 g/dL (31.0-37.0); MCV 106.6 fL (80.0-100.0); Macrocytosis Moderate; Mean Platelet Volume 10.5; Monocytes # (A) 0.3 k/uL (0-1.0); Monocytes % (A) 7 %; Neutrophils # (A) 2.7 k/uL (1.3-7.7); Neutrophils % (A) 63 %; RBC 3.29 m/uL (3.80-5.40); RDW 13.9 % (11.5-15.5); WBC 4.3 k/uL (3.8-10.6)
[2020-02-04 05:13] LABS: Albumin 2.5 g/dL (3.5-5.0); Calcium 7.9 mg/dL (8.4-10.2); Magnesium 1.5 mg/dL (1.6-2.3); Potassium 3.3 mmol/L (3.5-5.1); Total Bilirubin 1.9 mg/dL (0.2-1.3); Total Protein 6.2 g/dL (6.3-8.2)
[2020-02-04 06:00] LABS: Large Platelets Present
[2020-02-04 06:01] LABS: Anisocytosis (M) Present; Platelet Count 78 k/uL (150-450); Polychromasia Present
[2020-02-04 06:14] LABS: Glucose,Whole Blood 173 mg/dL (75-99)
[2020-02-04] MEDS: INSULIN ASPART (NovoLOG) 100 UNIT/ML VIAL SQ SCH ×3 (06:57→17:46)
[2020-02-04] MEDS: PANTOPRAZOLE 40 MG TABLET PO SCH (06:57)
[2020-02-04] MEDS ORDERED: Potassium Replacement Protocol 1 EACH MISC MISCELLANE PRN ×2 (08:06→09:05)
[2020-02-04] MEDS ORDERED: TORSEMIDE 20 MG TAB PO SCH (09:00)
[2020-02-04] MEDS: LACTULOSE 20 GM/30 ML CUP PO SCH ×3 (09:42→21:06)
[2020-02-04] MEDS: CHOLECALCIFEROL 1,000 UNIT TAB PO SCH (09:42)
[2020-02-04] MEDS: METOPROLOL TARTRATE 12.5 MG TAB PO SCH (09:42)
[2020-02-04] MEDS: INSULIN NPH 300 UNIT/3 ML VIAL SQ SCH ×2 (09:43→21:28)
[2020-02-04] MEDS: DICYCLOMINE 20 MG TAB PO SCH ×4 (09:43→21:05)
[2020-02-04] MEDS: SPIRONOLACTONE 25 MG TAB PO SCH (09:43)
[2020-02-04] MEDS: FERROUS SULFATE 325 MG TAB PO SCH ×2 (09:43→21:05)
[2020-02-04] MEDS: ISOSORBIDE MONONITRATE ER 30 MG TAB.ER.24H PO SCH (09:43)
[2020-02-04] MEDS: SUCRALFATE 1 GM TAB PO SCH ×4 (09:43→21:05)
[2020-02-04] MEDS: buPROPion SR 150 MG TABLET.ER PO SCH (09:43)
[2020-02-04] MEDS: FUROSEMIDE 10 MG/ML 4 ML VIAL IV SCH ×2 (09:43→21:05)
[2020-02-04] MEDS: POTASSIUM CHLORIDE ER 20 MEQ TAB.ER PO SCH ×2 (09:45→11:29)
[2020-02-04] MEDS: MORPHINE SULFATE ER 30 MG TABLET PO SCH ×2 (09:46→21:05)
[2020-02-04] MEDS: INSULIN REGULAR 100 UNIT/ML VIAL SQ SCH ×3 (10:29→17:47)
[2020-02-04 11:40] LABS: Glucose,Whole Blood 157 mg/dL (75-99)
--- NOTE | 2020-02-04 14:32 | P.PN ---
Subjective Progress Note Date: 02/04/20 Principal diagnosis: Abdominal discomfort Patient was seen and examined. No acute events overnight. Patient continues to report abdominal discomfort, unchanged from yesterday. States that morphine IV as helping. She denies any chest pain, shortness of breath or palpitations. No fever or chills. No nausea or vomiting. Objective - Vital Signs Vital signs: Vital Signs Temp 97.9 F 02/04/20 11:46 Pulse 50 L 02/04/20 11:46 Resp 16 02/04/20 11:46 BP 105/59 02/04/20 11:46 Pulse Ox 100 02/04/20 11:46 Intake & Output 02/03/20 02/04/20 02/04/20 18:59 06:59 18:59 Intake Total 440 360 Balance 440 360 Weight 95.254 kg 90.5 kg Intake: Oral 440 360 Other: # Voids 2 - Exam General: [non toxic], [no distress], [appears at stated age] Derm: [warm], [dry], [jaundiced] Head: [atraumatic], [normocephalic], [symmetric] Eyes: [EOMI], [no lid lag], [icteric sclera] Mouth: [no lip lesion], [mucus membranes moist] Cardiovascular: [S1S2 reg], [no murmur], [positive DP pulse bilateral], Lungs: [CTA bilateral], [no rhonchi, no rales] , [no accessory muscle use] Abdominal: [soft], [distended with tenderness to deep palpation in all 4 quadrants without rebound], [no guarding], [no appreciable organomegaly], [large hernia palpable], [ileostomy bag intact] Ext: [no gross muscle atrophy], [1+ pitting lower extremity bilateral edema], [no contractures] Neuro: [no focal neuro deficits] Psych: [Alert], [oriented], [appropriate affect] - Labs CBC & Chem 7: 02/04/20 04:02 02/04/20 04:02 Labs: Abnormal Lab Results - Last 24 Hours (Table) 02/03/20 02/03/20 02/03/20 Range/Units 15:16 15:16 15:16 RBC 3.70 L (3.80-5.40) m/uL MCV 105.0 H (80.0-100.0) fL MCH (25.0-35.0) pg Plt Count 90 L (150-450) k/uL PT 13.6 H (9.0-12.0) sec INR 1.4 H (<1.2) Sodium 134 L (137-145) mmol/L Potassium 5.3 H (3.5-5.1) mmol/L BUN 27 H (7-17) mg/dL Creatinine 1.31 H (0.52-1.04) mg/dL Glucose 149 H (74-99) mg/dL POC Glucose (mg/dL) (75-99) mg/dL Calcium 8.2 L (8.4-10.2) mg/dL Magnesium (1.6-2.3) mg/dL Total Bilirubin 3.2 H (0.2-1.3) mg/dL AST 119 H (14-36) U/L ALT 46 H (4-34) U/L Alkaline Phosphatase 343 H (38-126) U/L Ammonia (<30) umol/L Creatine Kinase 216 H (30-135) U/L Troponin I (0.000-0.034) ng/mL Total Protein (6.3-8.2) g/dL Albumin 3.3 L (3.5-5.0) g/dL 02/03/20 02/03/20 02/03/20 Range/Units 15:16 15:52 17:31 RBC (3.80-5.40) m/uL MCV (80.0-100.0) fL MCH (25.0-35.0) pg Plt Count (150-450) k/uL PT (9.0-12.0) sec INR (<1.2) Sodium (137-145) mmol/L Potassium (3.5-5.1) mmol/L BUN (7-17) mg/dL Creatinine (0.52-1.04) mg/dL Glucose (74-99) mg/dL POC Glucose (mg/dL) 194 H (75-99) mg/dL Calcium (8.4-10.2) mg/dL Magnesium (1.6-2.3) mg/dL Total Bilirubin (0.2-1.3) mg/dL AST (14-36) U/L ALT (4-34) U/L Alkaline Phosphatase (38-126) U/L Ammonia 44 H (<30) umol/L Creatine Kinase (30-135) U/L Troponin I 0.137 H* (0.000-0.034) ng/mL Total Protein (6.3-8.2) g/dL Albumin (3.5-5.0) g/dL 02/03/20 02/03/20 02/04/20 Range/Units 20:18 21:23 04:02 RBC 3.29 L (3.80-5.40) m/uL MCV 106.6 H (80.0-100.0) fL MCH 35.6 H (25.0-35.0) pg Plt Count 78 L (150-450) k/uL PT (9.0-12.0) sec INR (<1.2) Sodium (137-145) mmol/L Potassium (3.5-5.1) mmol/L BUN (7-17) mg/dL Creatinine (0.52-1.04) mg/dL Glucose (74-99) mg/dL POC Glucose (mg/dL) 124 H (75-99) mg/dL Calcium (8.4-10.2) mg/dL Magnesium (1.6-2.3) mg/dL Total Bilirubin (0.2-1.3) mg/dL AST (14-36) U/L ALT (4-34) U/L Alkaline Phosphatase (38-126) U/L Ammonia (<30) umol/L Creatine Kinase (30-135) U/L Troponin I 0.126 H* (0.000-0.034) ng/mL Total Protein (6.3-8.2) g/dL Albumin (3.5-5.0) g/dL 02/04/20 02/04/20 02/04/20 Range/Units 04:02 04:02 06:11 RBC (3.80-5.40) m/uL MCV (80.0-100.0) fL MCH (25.0-35.0) pg Plt Count (150-450) k/uL PT (9.0-12.0) sec INR (<1.2) Sodium 135 L (137-145) mmol/L Potassium 3.3 L (3.5-5.1) mmol/L BUN 26 H (7-17) mg/dL Creatinine 1.32 H (0.52-1.04) mg/dL Glucose 147 H (74-99) mg/dL POC Glucose (mg/dL) 173 H (75-99) mg/dL Calcium 7.9 L (8.4-10.2) mg/dL Magnesium 1.5 L (1.6-2.3) mg/dL Total Bilirubin 1.9 H (0.2-1.3) mg/dL AST 72 H (14-36) U/L ALT 36 H (4-34) U/L Alkaline Phosphatase 331 H (38-126) U/L Ammonia (<30) umol/L Creatine Kinase (30-135) U/L Troponin I 0.139 H* (0.000-0.034) ng/mL Total Protein 6.2 L (6.3-8.2) g/dL Albumin 2.5 L (3.5-5.0) g/dL 02/04/20 Range/Units 11:18 RBC (3.80-5.40) m/uL MCV (80.0-100.0) fL MCH (25.0-35.0) pg Plt Count (150-450) k/uL PT (9.0-12.0) sec INR (<1.2) Sodium (137-145) mmol/L Potassium (3.5-5.1) mmol/L BUN (7-17) mg/dL Creatinine (0.52-1.04) mg/dL Glucose (74-99) mg/dL POC Glucose (mg/dL) 157 H (75-99) mg/dL Calcium (8.4-10.2) mg/dL Magnesium (1.6-2.3) mg/dL Total Bilirubin (0.2-1.3) mg/dL AST (14-36) U/L ALT (4-34) U/L Alkaline Phosphatase (38-126) U/L Ammonia (<30) umol/L Creatine Kinase (30-135) U/L Troponin I (0.000-0.034) ng/mL Total Protein (6.3-8.2) g/dL Albumin (3.5-5.0) g/dL Assessment and Plan Assessment: Abdominal pain likely related to decompensated cirrhosis Hypokalemia Troponin elevation Hepatocellular carcinoma Chronic kidney disease stage III Type 2 diabetes mellitus with hyperglycemia Ileostomy with history of diverticulitis Macrocytosis with thrombocytopenia Her abdominal pain is likely related to abdominal distention from decompensated cirrhosis. Abdominal ultrasound shows ascites. Plans: IR consultation for paracentesis tomorrow. Start Lasix 40 mg IV twice a day. Zofran as needed for nausea or vomiting. Continue Aldactone. Pain management with Morphine as needed. Restart Lactulose. Follow GI consultation. Potassium 3.4. Lungs: Replace via protocol. Repeat BMP tomorrow morning. Troponin 0.137, 0.126, 0.139 with EKG showing sinus rhythm with occasional PVCs. Chronically elevated during previous admissions. Appears at baseline. Plans: ACS ruled out. Telemetry monitoring. Liver MRI in November shows interval growth in patients hepatocellular carcinoma. Plan: Follow GI consultation. BUN 27-26, creatinine 1.31-1.32. Appears at baseline. Plans: Continue to monitor. Repeat BMP tomorrow morning. [id number] glucose 157. Plans: Continue insulin home regimen. Insulin sliding scale. Regular Accu-Cheks. Hypoglycemic precautions. Stable. Plans: Local ostomy care. MCV 105-106.6. Platelet count 90-78. No signs of bleeding at this time. Plans: Repeat CBC tomorrow morning. [Patient admitted for decompensated cirrhosis. Plans for paracentesis tomorrow. No anticoagulation tonight. She is pending clinical improvement. Likely DC 1-2 days.]
[2020-02-04 16:54] LABS: Glucose,Whole Blood 56 mg/dL (75-99)
[2020-02-04 17:23] LABS: Glucose,Whole Blood 82 mg/dL (75-99)
--- NOTE | 2020-02-04 18:30 | P.CONS ---
History of Present Illness - Reason for Consult Consult date: 02/04/20 Decompensated cirrhosis, chronic abdominal pain, ascites Requesting physician: Isa Dowd - Chief Complaint Abdominal distention and pain - History of Present Illness 74-year-old female with a past medical history significant for hepatocellular carcinoma status post chemoembolization in the past and with recent MRI imaging earlier in the year showing progression of disease, recurrent ascites secondary to decompensated nonalcoholic liver cirrhosis with portal hypertension, hepatic encephalopathy, diverticular disease complicated in the past and requiring surgi tere intervention with colostomy formation, chronic kidney disease, or abdominal pain who presents back to the hospital after recent admission with complaints of worsening abdominal distention. The patient reports that since being discharged on 01/27/2020 she has had worsening abdominal distention. She reports compliance with her home medications. She has previously been seen for abdominal distention secondary to ascites requiring paracentesis in the past with the last approximately one month ago in December 2019. She also reports abdominal pain in the left side of her abdomen described as sharp in nature, without radiation. She also reports palpitations prior to presentation. Last EGD was performed in 07/2019 for evaluation of abdominal pain and significant for gastritis. Currently she denies any change in mentation. Ultrasound abdomen on presentation did show a moderate amount of ascites. Review of Systems REVIEW OF SYSTEMS: CONSTITUTIONAL: Denies any fevers, chills, weight change or fatigue. CARDIOVASCULAR: Denies any chest pain, high or low blood pressures, but did report chest palpitations prior to presentation RESPIRATORY: Denies any shortness of breath, hemoptysis or cough. GENITOURINARY: No dysuria or hematuria. MUSCULOSKELETAL: No weakness reported. SKIN: Denies any new rashes or lesions, jaundice or pallor. PSYCHIATRIC: Denies any depression or anxiety. NEUROLOGY: Denies headache, denies any new focal deficits. EARS/NOSE/THROAT: No recent hearing change, congestion, nasal discharge or sore throat. EYES: No pain in eyes, discharge or change in vision. GASTROINTESTINAL: As per HPI. Past Medical History Past Medical History: Cancer, Diabetes Mellitus, Hypertension, Liver Disease, Myocardial Infarction ([place]), Renal Disease Additional Past Medical History / Comment(s): Hepatocellular liver cancer with chemo immobilization-last time being 2017, ascities with paracentesis's Sep 2019, nonalcoholic liver cirrhosis, chronic pancytopenia, chronic elevated ammonia levels, hepatic encephalopathy, chronic elevated LFTs, chronic abdominal pain, stomach ulcer, diverticular disease with ileostomy, IDDM type II, iron anemia, CKD stage III, nonsustained vtach, UTI, high ammonia levels Last Myocardial Infarction Date:: unk History of Any Multi-Drug Resistant Organisms: MRSA, 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 Past Anesthesia/Blood Transfusion Reactions: No Reported Reaction Past Psychological History: Anxiety, Depression Smoking Status: Former smoker Past Alcohol Use History: None Reported Past Drug Use History: None Reported - Past Family History Mother History Unknown: Yes Family Medical History: Congestive Heart Failure (CHF) Additional Family Medical History / Comment(s): Mother is 94 yrs old. Father Family Medical History: Chest Pain / Angina Additional Family Medical History / Comment(s): Father is . Medications and Allergies Home Medications Medication Instructions Recorded Confirmed Type Sucralfate [Carafate] 1 gm PO QID 10/23/18 02/03/20 History Insulin Regular, Human [NovoLIN R] 10 unit SQ AC-TID 10/24/18 02/03/20 History Cholecalciferol [Vitamin D3 (25 4,000 unit PO DAILY 01/16/19 02/03/20 History Mcg = 1000 Iu)] Ferrous Sulfate [Iron (65 MG 325 mg PO BID 01/31/19 02/03/20 History Elemental)] buPROPion HCL [Wellbutrin SR] 150 mg PO DAILY 06/12/19 02/03/20 History clonazePAM [KlonoPIN] 0.5 mg PO BID PRN 06/12/19 02/03/20 History Torsemide [Demadex] 20 mg PO DAILY tab 11/21/19 02/03/20 Rx Isosorbide Mononitrate ER [Imdur] 30 mg PO DAILY@0800 11/25/19 02/03/20 History Spironolactone [Aldactone] 25 mg PO DAILY 11/25/19 02/03/20 History Lactulose [Cephulac] 30 gm PO TID 7 Days #1000 ml 11/30/19 02/03/20 Rx Dicyclomine [Bentyl] 20 mg PO QID 01/04/20 02/03/20 History Insulin NPH Human Isophane 18 unit SQ BID 01/04/20 02/03/20 History [humuLIN N] Morphine Sulfate ER [Ms Contin] 30 mg PO Q12HR 01/04/20 02/03/20 History Morphine Sulfate Ir [MSIR] 15 mg PO Q8H PRN 01/04/20 02/03/20 History Metoprolol Tartrate [Lopressor] 6.25 mg PO DAILY 02/03/20 02/03/20 History Omeprazole Magnesium [PriLOSEC OTC] 20 mg PO BID 02/03/20 02/03/20 History Ondansetron Odt [Zofran Odt] 8 mg PO DAILY 02/03/20 02/03/20 History Allergies Allergy/AdvReac Type Severity Reaction Status Date / Time amlodipine Allergy Rash/Hives Verified 02/03/20 15:29 oxycodone Allergy Rash/Hives Verified 02/03/20 15:29 Penicillins Allergy Rash/Hives Verified 02/03/20 15:29 hydromorphone [From Dilaudid] AdvReac Mild tactile Verified 02/03/20 15:29 disturbance GREG Inhibitors AdvReac Cough Verified 02/03/20 15:29 sodium dodecyclbenzene Allergy Rash/Hives Uncoded 02/03/20 15:29 sulfonate Physical Exam Vitals: Vital Signs Temp Pulse Pulse Resp BP BP Pulse Ox 02/04/20 11:46 97.9 F 50 L 14 105/59 100 02/04/20 08:00 99.1 F 65 16 135/65 99 02/04/20 04:00 67 16 132/64 98 02/03/20 20:00 98.2 F 63 16 144/66 96 02/03/20 17:45 98.2 F 67 16 119/56 100 02/03/20 17:02 76 16 132/61 100 02/03/20 15:09 98.1 F 63 16 123/54 100 Intake and Output 02/03/20 02/04/20 02/04/20 22:59 06:59 14:59 Intake Total 440 360 Balance 440 360 Intake: Oral 440 360 Other: # Voids 2 Weight 95.254 kg 90.5 kg On physical examination, patient appears comfortable in no apparent distress. HEAD: Normocephalic, atraumatic. EYES: No scleral icterus. No conjunctival injection. MOUTH: No lesions, tongue midline. NECK: Trachea midline, no gross abnormalities. CHEST: Clear to auscultation with no wheezing or rhonchi appreciated. HEART: S1-S2 appreciated. ABDOMEN: Soft, obese, ostomy intact with good output noted. Bowel sounds are positive. No organomegaly. No guarding or rigidity. EXTREMITIES: No pedal edema. SKIN: No rashes, no jaundice. NEUROLOGIC: Alert and oriented x3. No focal deficits. Results CBC & Chem 7: 02/04/20 04:02 02/04/20 04:02 Labs: Abnormal Lab Results - Last 24 Hours (Table) 02/03/20 02/03/20 02/03/20 Range/Units 15:16 15:16 15:16 RBC 3.70 L (3.80-5.40) m/uL MCV 105.0 H (80.0-100.0) fL MCH (25.0-35.0) pg Plt Count 90 L (150-450) k/uL PT 13.6 H (9.0-12.0) sec INR 1.4 H (<1.2) Sodium 134 L (137-145) mmol/L Potassium 5.3 H (3.5-5.1) mmol/L BUN 27 H (7-17) mg/dL Creatinine 1.31 H (0.52-1.04) mg/dL Glucose 149 H (74-99) mg/dL POC Glucose (mg/dL) (75-99) mg/dL Calcium 8.2 L (8.4-10.2) mg/dL Magnesium (1.6-2.3) mg/dL Total Bilirubin 3.2 H (0.2-1.3) mg/dL AST 119 H (14-36) U/L ALT 46 H (4-34) U/L Alkaline Phosphatase 343 H (38-126) U/L Ammonia (<30) umol/L Creatine Kinase 216 H (30-135) U/L Troponin I (0.000-0.034) ng/mL Total Protein (6.3-8.2) g/dL Albumin 3.3 L (3.5-5.0) g/dL 02/03/20 02/03/20 02/03/20 Range/Units 15:16 15:52 17:31 RBC (3.80-5.40) m/uL MCV (80.0-100.0) fL MCH (25.0-35.0) pg Plt Count (150-450) k/uL PT (9.0-12.0) sec INR (<1.2) Sodium (137-145) mmol/L Potassium (3.5-5.1) mmol/L BUN (7-17) mg/dL Creatinine (0.52-1.04) mg/dL Glucose (74-99) mg/dL POC Glucose (mg/dL) 194 H (75-99) mg/dL Calcium (8.4-10.2) mg/dL Magnesium (1.6-2.3) mg/dL Total Bilirubin (0.2-1.3) mg/dL AST (14-36) U/L ALT (4-34) U/L Alkaline Phosphatase (38-126) U/L Ammonia 44 H (<30) umol/L Creatine Kinase (30-135) U/L Troponin I 0.137 H* (0.000-0.034) ng/mL Total Protein (6.3-8.2) g/dL Albumin (3.5-5.0) g/dL 02/03/20 02/03/20 02/04/20 Range/Units 20:18 21:23 04:02 RBC 3.29 L (3.80-5.40) m/uL MCV 106.6 H (80.0-100.0) fL MCH 35.6 H (25.0-35.0) pg Plt Count 78 L (150-450) k/uL PT (9.0-12.0) sec INR (<1.2) Sodium (137-145) mmol/L Potassium (3.5-5.1) mmol/L BUN (7-17) mg/dL Creatinine (0.52-1.04) mg/dL Glucose (74-99) mg/dL POC Glucose (mg/dL) 124 H (75-99) mg/dL Calcium (8.4-10.2) mg/dL Magnesium (1.6-2.3) mg/dL Total Bilirubin (0.2-1.3) mg/dL AST (14-36) U/L ALT (4-34) U/L Alkaline Phosphatase (38-126) U/L Ammonia (<30) umol/L Creatine Kinase (30-135) U/L Troponin I 0.126 H* (0.000-0.034) ng/mL Total Protein (6.3-8.2) g/dL Albumin (3.5-5.0) g/dL 02/04/20 02/04/20 02/04/20 Range/Units 04:02 04:02 06:11 RBC (3.80-5.40) m/uL MCV (80.0-100.0) fL MCH (25.0-35.0) pg Plt Count (150-450) k/uL PT (9.0-12.0) sec INR (<1.2) Sodium 135 L (137-145) mmol/L Potassium 3.3 L (3.5-5.1) mmol/L BUN 26 H (7-17) mg/dL Creatinine 1.32 H (0.52-1.04) mg/dL Glucose 147 H (74-99) mg/dL POC Glucose (mg/dL) 173 H (75-99) mg/dL Calcium 7.9 L (8.4-10.2) mg/dL Magnesium 1.5 L (1.6-2.3) mg/dL Total Bilirubin 1.9 H (0.2-1.3) mg/dL AST 72 H (14-36) U/L ALT 36 H (4-34) U/L Alkaline Phosphatase 331 H (38-126) U/L Ammonia (<30) umol/L Creatine Kinase (30-135) U/L Troponin I 0.139 H* (0.000-0.034) ng/mL Total Protein 6.2 L (6.3-8.2) g/dL Albumin 2.5 L (3.5-5.0) g/dL 02/04/20 Range/Units 11:18 RBC (3.80-5.40) m/uL MCV (80.0-100.0) fL MCH (25.0-35.0) pg Plt Count (150-450) k/uL PT (9.0-12.0) sec INR (<1.2) Sodium (137-145) mmol/L Potassium (3.5-5.1) mmol/L BUN (7-17) mg/dL Creatinine (0.52-1.04) mg/dL Glucose (74-99) mg/dL POC Glucose (mg/dL) 157 H (75-99) mg/dL Calcium (8.4-10.2) mg/dL Magnesium (1.6-2.3) mg/dL Total Bilirubin (0.2-1.3) mg/dL AST (14-36) U/L ALT (4-34) U/L Alkaline Phosphatase (38-126) U/L Ammonia (<30) umol/L Creatine Kinase (30-135) U/L Troponin I (0.000-0.034) ng/mL Total Protein (6.3-8.2) g/dL Albumin (3.5-5.0) g/dL US - abdomen: report reviewed (Ultrasound of the abdomen with moderate amount of ascites noted) Assessment and Plan (1) Cirrhosis of liver with ascites Narrative/Plan: 74-year-old female with multiple medical comorbidities including 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 Patient has been seen on numerous occasions in the hospital for encephalopathy, increased abdominal distention or other complaints. On current presentation she reports increasing abdominal distention after recent discharge from the hospital. Last parace ntesis over a month ago in December 2019. She does report compliance with diuretic therapy at home. Plan is for paracentesis with ultrasound of the abdomen performed and evaluation showing a moderate amount of ascitic fluid. Current Visit: No Status: Acute Code(s): K74.60 - UNSPECIFIED CIRRHOSIS OF LIVER; R18.8 - OTHER ASCITES SNOMED Code(s): 06157808 (2) Ascites Current Visit: Yes Status: Acute Code(s): R18.8 - OTHER ASCITES SNOMED Code(s): 359824446 (3) Hepatocellular carcinoma Current Visit: Yes Status: Chronic Priority: Medium Code(s): C22.0 - LIVER CELL CARCINOMA SNOMED Code(s): 817654098 (4) Abdominal pain Current Visit: No Status: Acute Priority: High Code(s): R10.9 - UNSPECIFI ED ABDOMINAL PAIN SNOMED Code(s): 15661970 (5) Colostomy in place Current Visit: No Status: Acute Code(s): Z93.3 - COLOSTOMY STATUS SNOMED Code(s): 095636224 (6) Hepatic encephalopathy Narrative/Plan: History of hepatic encephalopathy currently on lactulose therapy with no signs or symptoms of encephalopathy. Current Visit: No Status: Acute Priority: High Code(s): K72.90 - HEPATIC FAILURE, UNSPECIFIED WITHOUT COMA SNOMED Code(s): 05854445 (7) Macrocytic anemia Narrative/Plan: Chronic macrocytic anemia with no signs or symptoms of GI bleeding. Current Visit: No Status: Acute Priority: Medium Code(s): D53.9 - NUTRITI ONAL ANEMIA, UNSPECIFIED SNOMED Code(s): 23941195 Plan: Supportive care Okay for diet, change to low-sodium Continue diuretic therapy with furosemide and Aldactone Continue lactulose 3 times a day Interventional radiology consult for paracentesis Patient will need follow-up after discharge with oncology services last MRI did show progression of hepatocellular carcinoma No plans for endoscopic evaluation at this time Thank you for allowing us to participate in the care of the patient
[2020-02-04 20:12] LABS: Glucose,Whole Blood 111 mg/dL (75-99)
[2020-02-05 01:58] LABS: Glucose,Whole Blood 184 mg/dL (75-99)
[2020-02-05 06:12] LABS: Glucose,Whole Blood 146 mg/dL (75-99)
[2020-02-05] MEDS: ISOSORBIDE MONONITRATE ER 30 MG TAB.ER.24H PO SCH (08:22)
[2020-02-05] MEDS: SUCRALFATE 1 GM TAB PO SCH ×4 (08:22→19:48)
[2020-02-05] MEDS: MORPHINE SULFATE ER 30 MG TABLET PO SCH ×2 (08:22→19:48)
[2020-02-05] MEDS: DICYCLOMINE 20 MG TAB PO SCH ×4 (08:22→19:48)
[2020-02-05] MEDS: PANTOPRAZOLE 40 MG TABLET PO SCH (08:22)
[2020-02-05] MEDS: SPIRONOLACTONE 25 MG TAB PO SCH (08:22)
[2020-02-05] MEDS: LACTULOSE 20 GM/30 ML CUP PO SCH ×3 (08:24→19:48)
[2020-02-05] MEDS: METOPROLOL TARTRATE 12.5 MG TAB PO SCH (08:24)
[2020-02-05] MEDS: buPROPion SR 150 MG TABLET.ER PO SCH (08:25)
[2020-02-05] MEDS: FUROSEMIDE 10 MG/ML 4 ML VIAL IV SCH ×2 (08:25→19:48)
[2020-02-05] MEDS: CHOLECALCIFEROL 1,000 UNIT TAB PO SCH (08:25)
[2020-02-05] MEDS: INSULIN REGULAR 100 UNIT/ML VIAL SQ SCH ×3 (08:26→17:44)
[2020-02-05] MEDS: INSULIN NPH 300 UNIT/3 ML VIAL SQ SCH ×2 (08:26→20:34)
[2020-02-05] MEDS: clonazePAM 0.5 MG TAB PO PRN (08:39)
[2020-02-05] MEDS: FERROUS SULFATE 325 MG TAB PO SCH ×2 (08:39→19:48)
[2020-02-05] MEDS: SODIUM CHLORIDE 0.9% 1,000 ML IV SCH ×2 (08:39→17:06)
[2020-02-05] MEDS: INSULIN ASPART (NovoLOG) 100 UNIT/ML VIAL SQ SCH ×3 (09:20→17:06)
[2020-02-05] MEDS: ONDANSETRON 4 MG/2 ML VIAL IVP PRN (11:39)
[2020-02-05 11:59] LABS: Glucose,Whole Blood 138 mg/dL (75-99)
--- NOTE | 2020-02-05 14:34 | P.PN ---
Subjective Progress Note Date: 02/05/20 Principal diagnosis: Abdominal discomfort Patient was seen and examined. No acute events overnight. Patient continues to report abdominal discomfort, unchanged from yesterday, 6-7 out of 10 in severity. States that morphine IV as helping. She denies any chest pain, shortness of breath or palpitations. No fever or chills. She complains of nausea today but no vomiting. Objective - Vital Signs Vital signs: Vital Signs Temp 98.1 F 02/05/20 12:00 Pulse 52 L 02/05/20 12:00 Resp 18 02/05/20 12:00 BP 97/55 02/05/20 12:00 Pulse Ox 97 02/05/20 12:00 Intake & Output 02/04/20 02/05/20 02/05/20 18:59 06:59 18:59 Intake Total 837 360 Balance 837 360 Weight 91.6 kg Intake: Oral 837 360 Other: # Voids 2 2 - Exam General: [non toxic], [no distress], [appears at stated age] Derm: [warm], [dry], [jaundiced] Head: [atraumatic], [normocephalic], [symmetric] Eyes: [EOMI], [no lid lag], [icteric sclera] Mouth: [no lip lesion], [mucus membranes moist] Cardiovascular: [S1S2 reg], [no murmur], [positive DP pulse bilateral], Lungs: [CTA bilateral], [no rhonchi, no rales] , [no accessory muscle use] Abdominal: [soft], [distended with tenderness to deep palpation in all 4 quadrants without rebound], [no guarding], [no appreciable organomegaly], [large hernia palpable], [ileostomy bag intact] Ext: [no gross muscle atrophy], [1+ pitting lower extremity bilateral edema], [no contractures] Neuro: [no focal neuro deficits] Psych: [Alert], [oriented], [appropriate affect] - Labs CBC & Chem 7: 02/04/20 04:02 02/04/20 04:02 Labs: Abnormal Lab Results - Last 24 Hours (Table) 02/04/20 02/04/20 02/05/20 Range/Units 16:49 20:11 01:57 POC Glucose (mg/dL) 56 L 111 H 184 H (75-99) mg/dL 02/05/20 02/05/20 Range/Units 06:11 11:35 POC Glucose (mg/dL) 146 H 138 H (75-99) mg/dL Assessment and Plan Assessment: Abdominal pain likely related to decompensated cirrhosis Hypokalemia Troponin elevation Hepatocellular carcinoma Chronic kidney disease stage III Type 2 diabetes mellitus with hyperglycemia Ileostomy with history of diverticulitis Macrocytosis with thrombocytopenia Her abdominal pain is likely related to abdominal distention from decompensated cirrhosis. Abdominal ultrasound shows ascites. Plans: IR consultation for paracentesis tomorrow. Continue Lasix 40 mg IV twice a day. Zofran as needed for nausea or vomiting. Continue Aldactone. Pain management with Morphine as needed. Restart Lactulose. Follow GI consultation. Potassium 3.4. Plans: Replace via protocol. Repeat BMP tomorrow morning. Troponin 0.137, 0.126, 0.139 with EKG showing sinus rhythm with occasional PVCs. Chronically elevated during previous admissions. Appears at baseline. Plans: ACS ruled out. Telemetry monitoring. Liver MRI in November shows interval growth in patients hepatocellular carcinoma. Plan: Follow GI consultation. BUN 27-26, creatinine 1.31-1.32. Appears at baseline. Plans: Continue to monitor. Repeat BMP tomorrow morning. [id number] glucose 138. Plans: Continue insulin home regimen. Insulin sliding scale. Regular Accu-Cheks. Hypoglycemic precautions. Stable. Plans: Local ostomy care. MCV 105-106.6. Platelet count 90-78. No signs of bleeding at this time. Plans: Repeat CBC tomorrow morning. [Patient admitted for decompensated cirrhosis. Plans for paracentesis today. She is pending clinical improvement. Likely DC 1-2 days.]
[2020-02-05 16:56] LABS: Glucose,Whole Blood 69 mg/dL (75-99)
--- NOTE | 2020-02-05 17:18 | P.PN ---
Subjective Progress Note Date: 02/05/20 Principal diagnosis: Decompensated cirrhosis with ascites, hepatocellular carcinoma, history of hepatic encephalopathy Patient's pain setting bedside today. Still reporting abdominal distention. No confusion, signs or symptoms of GI bleeding reported. Objective - Vital Signs Vital signs: Vital Signs Temp 98.0 F 02/05/20 03:18 Pulse 73 02/05/20 03:18 Resp 16 02/05/20 03:18 BP 85/49 02/05/20 03:18 Pulse Ox 100 02/05/20 03:18 Intake & Output 02/04/20 02/05/20 02/05/20 18:59 06:59 18:59 Intake Total 837 360 Balance 837 360 Weight 91.6 kg Intake: Oral 837 360 Other: # Voids 2 - Exam On physical examination, patient appears comfortable in no apparent distress. HEAD: Normocephalic, atraumatic. EYES: No scleral icterus. No conjunctival injection. MOUTH: No lesions, tongue midline. NECK: Trachea midline, no gross abnormalities. ABDOMEN: Soft, obese, moderately distended with colostomy in place. Bowel sounds are positive. No organomegaly. No guarding or rigidity. EXTREMITIES: No pedal edema. SKIN: No rashes, no jaundice. NEUROLOGIC: Alert and oriented x3. No focal deficits. 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 Patient has been seen on numerous occasions in the hospital for encephalopathy, increased abdominal distention or other complaints. On current presentation she reports increasing abdominal distention after recent discharge from the hospital. Last paracentesis over a month ago in December 2019. She does report compliance with diuretic therapy at home. Plan is for paracentesis with ultrasound of the abdomen performed and evaluation showing a moderate amount of ascitic fluid. Current Visit: No Status: Acute Code(s): K74.60 - UNSPECIFIED CIRRHOSIS OF LIVER; R18.8 - OTHER ASCITES SNOMED Code(s): 91030122 (2) Ascites Current Visit: Yes Status: Acute Code(s): R18.8 - OTHER ASCITES SNOMED Code(s): 389640810 (3) Hepatocellular carcinoma Current Visit: Yes Status: Chronic Priority: Medium Code(s): C22.0 - LIVER CELL CARCINOMA SNOMED Code(s): 299833835 (4) Abdominal pain Current Visit: No Status: Acute Priority: High Code(s): R10.9 - UNSPECIFIED ABDOMINAL PAIN SNOMED Code(s): 91531741 (5) Colostomy in place Current Visit: No Status: Acute Code(s): Z93.3 - COLOSTOMY STATUS SNOMED Code(s): 395257467 (6) Hepatic encephalopathy Narrative/Plan: History of hepatic encephalopathy currently on lactulose therapy with no signs or symptoms of encephalopathy. Current Visit: No Status: Acute Priority: High Code(s): K72.90 - HEPATIC FAILURE, UNSPECIFIED WITHOUT COMA SNOMED Code(s): 17828366 (7) Macrocytic anemia Narrative/Plan: Chronic macrocytic anemia with no signs or symptoms of GI bleeding. Current Visit: No Status: Acute Priority: Medium Code(s): D53.9 - NUTRITIONAL ANEMIA, UNSPECIFIED SNOMED Code(s): 21000855 Plan: Supportive care Okay for diet, change to low-sodium Continue diuretic therapy with furosemide and Aldactone Continue lactulose 3 times a day Interventional radiology consulted for paracentesis Patient will need follow-up after discharge with oncology services, last MRI did showed progression of hepatocellular carcinoma No plans for endoscopic evaluation at this time Thank you for allowing us to participate in the care of the patient
[2020-02-05 17:28] LABS: Glucose,Whole Blood 93 mg/dL (75-99)
[2020-02-05 20:18] LABS: Glucose,Whole Blood 134 mg/dL (75-99)
[2020-02-05 23:30] VITALS: RESP 18
[2020-02-06 02:33] LABS: Glucose,Whole Blood 119 mg/dL (75-99)
[2020-02-06] MEDS: clonazePAM 0.5 MG TAB PO PRN ×2 (02:40→18:06)
[2020-02-06 06:11] LABS: Glucose,Whole Blood 83 mg/dL (75-99)
[2020-02-06] MEDS: INSULIN ASPART (NovoLOG) 100 UNIT/ML VIAL SQ SCH ×4 (06:21→20:54)
[2020-02-06] MEDS: PANTOPRAZOLE 40 MG TABLET PO SCH (06:48)
[2020-02-06 08:34] LABS: Calcium 8.1 mg/dL (8.4-10.2); Magnesium 1.7 mg/dL (1.6-2.3); Potassium 3.7 mmol/L (3.5-5.1)
[2020-02-06] MEDS: LACTULOSE 20 GM/30 ML CUP PO SCH ×3 (08:42→20:58)
[2020-02-06] MEDS: METOPROLOL TARTRATE 12.5 MG TAB PO SCH (08:44)
[2020-02-06] MEDS: SUCRALFATE 1 GM TAB PO SCH ×4 (08:46→20:54)
[2020-02-06] MEDS: MORPHINE SULFATE ER 30 MG TABLET PO SCH ×2 (08:46→20:53)
[2020-02-06] MEDS: CHOLECALCIFEROL 1,000 UNIT TAB PO SCH (08:46)
[2020-02-06] MEDS: SPIRONOLACTONE 25 MG TAB PO SCH (08:46)
[2020-02-06] MEDS: FERROUS SULFATE 325 MG TAB PO SCH ×2 (08:46→20:54)
[2020-02-06] MEDS: DICYCLOMINE 20 MG TAB PO SCH ×4 (08:46→20:53)
[2020-02-06] MEDS: INSULIN REGULAR 100 UNIT/ML VIAL SQ SCH ×3 (08:47→18:05)
[2020-02-06] MEDS: ISOSORBIDE MONONITRATE ER 30 MG TAB.ER.24H PO SCH (08:47)
[2020-02-06] MEDS: buPROPion SR 150 MG TABLET.ER PO SCH (08:48)
[2020-02-06] MEDS: FUROSEMIDE 10 MG/ML 4 ML VIAL IV SCH (08:50)
[2020-02-06 08:51] LABS: HCT 30.3 % (34.0-46.0); HGB 10.2 gm/dL (11.4-16.0); MCH 35.4 pg (25.0-35.0); MCHC 33.5 g/dL (31.0-37.0); MCV 105.5 fL (80.0-100.0); Macrocytosis Moderate; Mean Platelet Volume 10.7; RBC 2.87 m/uL (3.80-5.40); RDW 14.2 % (11.5-15.5); WBC 3.2 k/uL (3.8-10.6)
[2020-02-06 08:53] LABS: Platelet Count 67 k/uL (150-450)
[2020-02-06] MEDS: INSULIN NPH 300 UNIT/3 ML VIAL SQ SCH ×2 (09:52→20:54)
[2020-02-06 11:53] LABS: Glucose,Whole Blood 84 mg/dL (75-99)
[2020-02-06] MEDS: ONDANSETRON 4 MG/2 ML VIAL IVP PRN (14:29)
[2020-02-06] MEDS: MORPHINE SULFATE IR 15 MG TABLET PO PRN (14:33)
--- NOTE | 2020-02-06 16:01 | US ---
EXAMINATION TYPE: US paracentesis abd w/image DATE OF EXAM: 02/06/2020 COMPARISON: NONE HISTORY: Ascites. PROCEDURE: Maximal barrier technique was utilized. The skin overlying a suitable pocket of fluid was localized with ultrasound and the overlying skin was prepped and draped. Ultrasound was utilized with sterile technique. Lidocaine was used for local anesthesia and a skin jenny made with a scalpel. Catheter was advanced under direct ultrasound guidance into a suitable pocket of fluid and approximately 3 liters of serous fluid were removed. Catheter was withdrawn and hemostasis achieved. There is no immediate complication; the patient is discharged in stable condition. IMPRESSION: STATUS POST ULTRASOUND GUIDED PARACENTESIS FOR PALLIATION OF ASCITES. THIS PROCEDURE WA S PERFORMED BY THE UNDERSIGNED.
[2020-02-06] MEDS: MORPHINE SULFATE 4 MG/ML SYRINGE IV PRN (16:12)
--- NOTE | 2020-02-06 16:15 | P.PN ---
Subjective Progress Note Date: 02/06/20 (delayed charting seen at 0945) Principal diagnosis: abdominal pain Patient is a 74-year-old female with a history of hepatocellular carcinoma, recurrent ascites secondary to decompensated cirrhosis, diabetes mellitus, chronic kidney disease stage III, and hypertension who presented to the emergency department for abdominal pain. In the ER labs showed thrombocytopenia consistent with chronic, elevated INR consistent with chronic, and a creatinine of 1.31 consistent with her chronic. Potassium was mildly elevated secondary to hemolysis. Elevated troponin which is chronic for her. Elevated liver enzymes which were near her baseline. She was found to have significant ascites on physical exam. Chest x-ray showed no acute process. She was admitted and started on diuretic basis of IV Lasix. Abdominal ultrasound showed moderate amount of fluid. GI was consulted and she was continued on IV diuresis. She underwent paracentesis on 02/05 with removal of 3L of Fluid Patient seen and examined prior to paracentesis. She complains of some abdominal pain, mild nausea, No chest pain. We also had a monie discussion about her risks during the COVID- 19 outbreak. Objective - Vital Signs Vital signs: Vital Signs Temp 97.8 F 02/06/20 08:35 Pulse 50 L 02/06/20 13:16 Resp 18 02/06/20 13:16 BP 108/60 02/06/20 13:16 Pulse Ox 99 02/06/20 13:16 Intake & Output 02/05/20 02/06/20 02/06/20 18:59 06:59 18:59 Intake Total 960 780 Output Total 2 2 Balance 958 -2 780 Weight 90.3 kg Intake: Oral 960 780 Output: Stool 2 2 Other: # Voids 2 1 1 - Exam General: non toxic, no distress, appears at stated age Derm: warm, dry Head: atraumatic, normocephalic, symmetric Eyes: EOMI, no lid lag, anicteric sclera Mouth: no lip lesion, mucus membranes moist Cardiovascular: S1S2 reg, no murmur, positive posterior tibial pulse bilateral, Lungs: Decreased bs bilateral, no rhonchi, no rales , no accessory muscle use Abdominal: + tender to palpation midline, no guarding, no appreciable organomegaly Ext: no gross muscle atrophy, no edema, no contractures Neuro: CN II-XI grossly intact, no focal neuro deficits Psych: Alert, oriented, appropriate affect - Labs CBC & Chem 7: 02/06/20 08:06 02/06/20 08:06 Labs: Abnormal Lab Results - Last 24 Hours (Table) 02/05/20 02/05/20 02/06/20 Range/Units 16:46 20:15 02:31 WBC (3.8-10.6) k/uL RBC (3.80-5.40) m/uL Hgb (11.4-16.0) gm/dL Hct (34.0-46.0) % MCV (80.0-100.0) fL MCH (25.0-35.0) pg Plt Count (150-450) k/uL Sodium (137-145) mmol/L BUN (7-17) mg/dL Creatinine (0.52-1.04) mg/dL POC Glucose (mg/dL) 69 L 134 H 119 H (75-99) mg/dL Calcium (8.4-10.2) mg/dL 02/06/20 02/06/20 Range/Units 08:06 08:06 WBC 3.2 L (3.8-10.6) k/uL RBC 2.87 L (3.80-5.40) m/uL Hgb 10.2 L (11.4-16.0) gm/dL Hct 30.3 L (34.0-46.0) % MCV 105.5 H (80.0-100.0) fL MCH 35.4 H (25.0-35.0) pg Plt Count 67 L (150-450) k/uL Sodium 135 L (137-145) mmol/L BUN 23 H (7-17) mg/dL Creatinine 1.30 H (0.52-1.04) mg/dL POC Glucose (mg/dL) (75-99) mg/dL Calcium 8.1 L (8.4-10.2) mg/dL Assessment and Plan Assessment: Decompensated cirrhosis with intractable abdominal pain Hypokalemia Chronically elevated troponin Hepatocellular carcinoma CKD III MD 2 with hyperglycemia ileostomy with hx of diverticulitis Thrombocytopenia Plan: paracentesis today, restart oral lasix and stop IV , continue aldactone and lactulose Information given to patient on need to make appointment with GI and her oncologist after discharge as her liver mass was increasing on MRI in November. Plan had been for discharge home, Patient vomiting and having increased pain after paracentesis. Will monitor overnight and plan is for home in AM if clinical improvement.
[2020-02-06 16:30] LABS: Glucose,Whole Blood 113 mg/dL (75-99)
--- NOTE | 2020-02-06 16:48 | P.PN ---
Subjective Progress Note Date: 02/06/20 Principal diagnosis: Decompensated cirrhosis with ascites, hepatocellular carcinoma, history of hepatic encephalopathy Patient in room today reporting that night last night. She reports being very anxious. Still reporting abdominal pain and distention with plan for paracentesis this afternoon. Objective - Vital Signs Vital signs: Vital Signs Temp 97.8 F 02/06/20 08:35 Pulse 50 L 02/06/20 13:16 Resp 18 02/06/20 13:16 BP 108/60 02/06/20 13:16 Pulse Ox 99 02/06/20 13:16 Intake & Output 02/05/20 02/06/20 02/06/20 18:59 06:59 18:59 Intake Total 960 780 Output Total 2 2 Balance 958 -2 780 Weight 90.3 kg Intake: Oral 960 780 Output: Stool 2 2 Other: # Voids 2 1 1 - Exam On physical examination, patient appears comfortable in no apparent distress. HEAD: Normocephalic, atraumatic. EYES: No scleral icterus. No conjunctival injection. MOUTH: No lesions, tongue midline. NECK: Trachea midline, no gross abnormalities. ABDOMEN: Soft, obese, moderately distended with colostomy in place. Bowel sounds are positive. No organomegaly. No guarding or rigidity. EXTREMITIES: No pedal edema. SKIN: No rashes, no jaundice. NEUROLOGIC: Alert and oriented x3. No focal deficits. - Labs CBC & Chem 7: 02/06/20 08:06 02/06/20 08:06 Labs: Abnormal Lab Results - Last 24 Hours (Table) 02/05/20 02/05/20 02/06/20 Range/Units 16:46 20:15 02:31 WBC (3.8-10.6) k/uL RBC (3.80-5.40) m/uL Hgb (11.4-16.0) gm/dL Hct (34.0-46.0) % MCV (80.0-100.0) fL MCH (25.0-35.0) pg Plt Count (150-450) k/uL Sodium (137-145) mmol/L BUN (7-17) mg/dL Creatinine (0.52-1.04) mg/dL POC Glucose (mg/dL) 69 L 134 H 119 H (75-99) mg/dL Calcium (8.4-10.2) mg/dL 02/06/20 02/06/20 02/06/20 Range/Units 08:06 08:06 16:27 WBC 3.2 L (3.8-10.6) k/uL RBC 2.87 L (3.80-5.40) m/uL Hgb 10.2 L (11.4-16.0) gm/dL Hct 30.3 L (34.0-46.0) % MCV 105.5 H (80.0-100.0) fL MCH 35.4 H (25.0-35.0) pg Plt Count 67 L (150-450) k/uL Sodium 135 L (137-145) mmol/L BUN 23 H (7-17) mg/dL Creatinine 1.30 H (0.52-1.04) mg/dL POC Glucose (mg/dL) 113 H (75-99) mg/dL Calcium 8.1 L (8.4-10.2) mg/dL Assessment and Plan (1) Cirrhosis of liver with ascites Narrative/Plan: 74-year-old female with multiple medical comorbidities including 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 Patient has been seen on numerous occasions in the hospital for encephalopathy, increased abdominal distention or other complaints. On current presentation she reports increasing abdominal distention after recent discharge from the hospital. Last par acentesis over a month ago in December 2019. She does report compliance with diuretic therapy at home. Plan is for paracentesis with ultrasound of the abdomen performed and evaluation showing a moderate amount of ascitic fluid. Current Visit: No Status: Acute Code(s): K74.60 - UNSPECIFIED CIRRHOSIS OF LIVER; R18.8 - OTHER ASCITES SNOMED Code(s): 51097856 (2) Ascites Current Visit: Yes Status: Acute Code(s): R18.8 - OTHER ASCITES SNOMED Code(s): 604567692 (3) Hepatocellular carcinoma Current Visit: Yes Status: Chronic Priority: Medium Code(s): C22.0 - LIVER CELL CARCINOMA SNOMED Code(s): 558481990 (4) Abdominal pain Current Visit: No Status: Acute Priority: High Code(s): R10.9 - UNSPEC IFIED ABDOMINAL PAIN SNOMED Code(s): 31840185 (5) Colostomy in place Current Visit: No Status: Acute Code(s): Z93.3 - COLOSTOMY STATUS SNOMED Code(s): 043924249 (6) Hepatic encephalopathy Narrative/Plan: History of hepatic encephalopathy currently on lactulose therapy with no signs or symptoms of encephalopathy. Current Visit: No Status: Acute Priority: High Code(s): K72.90 - HEPATIC FAILURE, UNSPECIFIED WITHOUT COMA SNOMED Code(s): 67769198 (7) Macrocytic anemia Narrative/Plan: Chronic macrocytic anemia with no signs or symptoms of GI bleeding. Current Visit: No Status: Acute Priority: Medium Code(s): D53.9 - NUTR ITIONAL ANEMIA, UNSPECIFIED SNOMED Code(s): 83789610 Plan: Supportive care Okay for diet, change to low-sodium Continue diuretic therapy with furosemide and Aldactone Continue lactulose 3 times a day Interventional radiology consulted for paracentesis today Patient will need follow-up after discharge with oncology services, last MRI did showed progression of hepatocellular carcinoma No plans for endoscopic evaluation at this time Thank you for allowing us to participate in the care of the patient
[2020-02-06] MEDS: SODIUM CHLORIDE 0.9% 1,000 ML IV SCH (18:05)
[2020-02-06 20:24] LABS: Glucose,Whole Blood 140 mg/dL (75-99)
[2020-02-07] MEDS: ONDANSETRON 4 MG/2 ML VIAL IVP PRN (00:23)
[2020-02-07 01:55] LABS: Glucose,Whole Blood 155 mg/dL (75-99)
[2020-02-07 05:01] VITALS: BP 96/58; PULSE 62; TEMP 98.3
[2020-02-07 07:37] LABS: Glucose,Whole Blood 96 mg/dL (75-99)
[2020-02-07 08:02] LABS: HCT 31.3 % (34.0-46.0); HGB 10.4 gm/dL (11.4-16.0); MCH 35.1 pg (25.0-35.0); MCHC 33.3 g/dL (31.0-37.0); MCV 105.4 fL (80.0-100.0); Macrocytosis Moderate; Mean Platelet Volume 10.9; RBC 2.96 m/uL (3.80-5.40); RDW 14.3 % (11.5-15.5)
[2020-02-07 08:10] LABS: Platelet Count 77 k/uL (150-450)
[2020-02-07 08:12] LABS: Albumin 2.1 g/dL (3.5-5.0); Potassium 4.2 mmol/L (3.5-5.1); Total Protein 5.5 g/dL (6.3-8.2)
[2020-02-07] MEDS: CHOLECALCIFEROL 1,000 UNIT TAB PO SCH (08:12)
[2020-02-07] MEDS: SUCRALFATE 1 GM TAB PO SCH (08:12)
[2020-02-07] MEDS: PANTOPRAZOLE 40 MG TABLET PO SCH (08:12)
[2020-02-07] MEDS: buPROPion SR 150 MG TABLET.ER PO SCH (08:12)
[2020-02-07] MEDS: METOPROLOL TARTRATE 12.5 MG TAB PO SCH (08:12)
[2020-02-07] MEDS: SPIRONOLACTONE 25 MG TAB PO SCH (08:12)
[2020-02-07] MEDS: FERROUS SULFATE 325 MG TAB PO SCH (08:12)
[2020-02-07] MEDS: ISOSORBIDE MONONITRATE ER 30 MG TAB.ER.24H PO SCH (08:13)
[2020-02-07] MEDS: MORPHINE SULFATE ER 30 MG TABLET PO SCH (08:13)
[2020-02-07] MEDS: DICYCLOMINE 20 MG TAB PO SCH (08:13)
[2020-02-07] MEDS: INSULIN NPH 300 UNIT/3 ML VIAL SQ SCH (08:25)
[2020-02-07] MEDS: INSULIN REGULAR 100 UNIT/ML VIAL SQ SCH (08:26)
--- NOTE | 2020-02-07 08:44 | P.DS ---
Providers Date of admission: 02/05/20 08:19 Expected date of discharge: 02/07/20 Attending physician: Quiana Brown DO Consults: 02/03/20 17:12 Consult Physician Routine Consulting Provider: Carley Valverde Consult Reason/Comments: Cirrhosis Do you want consulting provider notified?: Yes Primary care physician: Gilma Martinez Hospital Course: Discharge Diagnosis: Decompensated cirrhosis with intractable abdominal pain Hypokalemia Chronically elevated troponin Hepatocellular carcinoma CKD III MD 2 with hyperglycemia ileostomy with hx of diverticulitis Thrombocytopenia Intractable nausea and vomiting Hospital Course: Patient is a 74-year-old female with a history of hepatocellular carcinoma, recurrent ascites secondary to decompensated cirrhosis, diabetes mellitus, chronic kidney disease stage III, and hypertension who presented to the emergency department for abdominal pain. In the ER labs showed thrombocytopenia consistent with chronic, elevated INR consistent with chronic, and a creatinine of 1.31 consistent with her chronic. Potassium was mildly elevated secondary to hemolysis. Elevated troponin which is chronic for her. Elevated liver enzymes which were near her baseline. She was found to have significant ascites on physical exam. Chest x-ray showed no acute process. She was admitted and started on diuretic basis of IV Lasix. Abdominal ultrasound showed moderate amount of fluid. GI was consulted and she was continued on IV diuresis. She underwent paracentesis on 02/05 with removal of 3L of fluid. She had nausea and vomiting directly afterwars and was monitored overnight for resolutions. 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 I did inform her of needing to call and the urgency to which this needs to be done. She acknowledges this. I have informed her she didn't take her medications on a daily basis and not miss any doses. I've asked her to follow-up with both Dr. Martinez and her physician internist. She will take her Torsemide twice daily for the next 2 days. High likely live of readmission due to difficulty with compliance. Patient seen and examined at bedside. Feeling well today. Denies any abdominal pain no nausea or vomiting. Feeling ready to go home. Vital signs reviewed and stable. General: non toxic, no distress, appears at stated age Derm: warm, dry Head: atraumatic, normocephalic, symmetric Eyes: EOMI, no lid lag, anicteric sclera Mouth: no lip lesion, mucus membranes moist Cardiovascular: S1S2 reg, no murmur, positive posterior tibial pulse bilateral, Lungs: Decreased bs bilateral, no rhonchi, no rales , no accessory muscle use Abdominal: non tender to palpation midline, no guarding, no appreciable organomegaly Ext: no gross muscle atrophy, 2+ edema, no contractures Psych: Alert, oriented, appropriate affect A total of 35 minutes of time were spent preparing this complex discharge summary . Patient Condition at Discharge: Stable Plan - Discharge Summary Discharge Rx Participant: No New Discharge Prescriptions: Continue Sucralfate [Carafate] 1 gm PO QID Insulin Regular, Human [NovoLIN R] 10 unit SQ AC-TID Cholecalciferol [Vitamin D3 (25 Mcg = 1000 Iu)] 4,000 unit PO DAILY Ferrous Sulfate [Iron (65 MG Elemental)] 325 mg PO BID buPROPion HCL [Wellbutrin SR] 150 mg PO DAILY clonazePAM [KlonoPIN] 0.5 mg PO BID PRN PRN Reason: Anxiety Torsemide [Demadex] 20 mg PO DAILY tab Isosorbide Mononitrate ER [Imdur] 30 mg PO DAILY@0800 Spironolactone [Aldactone] 25 mg PO DAILY Lactulose [Cephulac] 30 gm PO TID 7 Days #1000 ml Dicyclomine [Bentyl] 20 mg PO QID Insulin NPH Human Isophane [humuLIN N] 18 unit SQ BID Morphine Sulfate Ir [MSIR] 15 mg PO Q8H PRN PRN Reason: Breakthrough Pain Morphine Sulfate ER [Ms Contin] 30 mg PO Q12HR Ondansetron Odt [Zofran ODT] 8 mg PO DAILY Omeprazole Magnesium [PriLOSEC OTC] 20 mg PO BID Metoprolol Tartrate [Lopressor] 6.25 mg PO DAILY Discharge Medication List Sucralfate [Carafate] 1 gm PO QID 10/23/18 [History] Insulin Regular, Human [NovoLIN R] 10 unit SQ AC-TID 10/24/18 [History] Cholecalciferol [Vitamin D3 (25 Mcg = 1000 Iu)] 4,000 unit PO DAILY 01/16/19 [History] Ferrous Sulfate [Iron (65 MG Elemental)] 325 mg PO BID 01/31/19 [History] buPROPion HCL [Wellbutrin SR] 150 mg PO DAILY 06/12/19 [History] clonazePAM [KlonoPIN] 0.5 mg PO BID PRN 06/12/19 [History] Torsemide [Demadex] 20 mg PO DAILY tab 11/21/19 [Rx] Isosorbide Mononitrate ER [Imdur] 30 mg PO DAILY@0800 11/25/19 [History] Spironolactone [Aldactone] 25 mg PO DAILY 11/25/19 [History] Lactulose [Cephulac] 30 gm PO TID 7 Days #1000 ml 11/30/19 [Rx] Dicyclomine [Bentyl] 20 mg PO QID 01/04/20 [History] Insulin NPH Human Isophane [humuLIN N] 18 unit SQ BID 01/04/20 [History] Morphine Sulfate ER [Ms Contin] 30 mg PO Q12HR 01/04/20 [History] Morphine Sulfate Ir [MSIR] 15 mg PO Q8H PRN 01/04/20 [History] Metoprolol Tartrate [Lopressor] 6.25 mg PO DAILY 02/03/20 [History] Omeprazole Magnesium [PriLOSEC OTC] 20 mg PO BID 02/03/20 [History] Ondansetron Odt [Zofran ODT] 8 mg PO DAILY 02/03/20 [History] Follow up Appointment(s)/Referral(s): Carley Valverde MD [STAFF PHYSICIAN] - [facility], [NON-STAFF] - Gilma Martinez MD [Primary Care Provider] - 1-2 days Activity/Diet/Wound Care/Special Instructions: Activity: as tolerated Diet: Carb consistent, 2 gram sodium and 1500 mL fluid restriction Special Instructions: Torsemide 20 md twice daily for 2 days then resume once daily. home care and Palliative care
[2020-02-07] MEDS ORDERED: FUROSEMIDE 40 MG TAB PO SCH (09:00)
[2020-02-07] MEDS: LACTULOSE 20 GM/30 ML CUP PO SCH (11:21)
== END 2020-02-07 11:30 | disposition home health service (06) | DRG 433 ==
LOC: EC 15:07 → 3SCARD 16:44 → OBSVTOIN 02-05 08:19 → 5NMEDONC 02-07 00:20
PROVIDERS: ADMIT Internal Medicine; ATTEND Internal Medicine
PROC: 0W9G3ZZ Drainage of Peritoneal Cavity, Percutaneous Approach (ICD-10-PCS; principal; 2020-02-06)
DX: K74.60 Unspecified cirrhosis of liver (principal); C22.0 Liver cell carcinoma; K76.6 Portal hypertension; R18.8 Other ascites; D53.9 Nutritional anemia, unspecified; D69.6 Thrombocytopenia, unspecified; E11.22 Type 2 diabetes mellitus with diabetic chronic kidney disease; E11.65 Type 2 diabetes mellitus with hyperglycemia; E87.5 Hyperkalemia; E87.6 Hypokalemia; F32.9 Major depressive disorder, single episode, unspecified; F41.9 Anxiety disorder, unspecified; G89.29 Other chronic pain; R79.89 Other specified abnormal findings of blood chemistry; I12.9 Hypertensive chronic kidney disease with stage 1 through stage 4 chronic kidney disease, or unspecified chronic kidney disease; I49.3 Ventricular premature depolarization; K29.70 Gastritis, unspecified, without bleeding; K72.10 Chronic hepatic failure without coma; N18.3 Chronic kidney disease, stage 3 (moderate); Z79.4 Long term (current) use of insulin; I25.2 Old myocardial infarction; Z79.899 Other long term (current) drug therapy; Z82.49 Family history of ischemic heart disease and other diseases of the circulatory system; Z85.05 Personal history of malignant neoplasm of liver; Z87.11 Personal history of peptic ulcer disease; Z87.891 Personal history of nicotine dependence; Z90.710 Acquired absence of both cervix and uterus; Z93.3 Colostomy status; Z90.49 Acquired absence of other specified parts of digestive tract; Z90.89 Acquired absence of other organs; Z98.890 Other specified postprocedural states; Z88.5 Allergy status to narcotic agent; Z88.0 Allergy status to penicillin; Z88.8 Allergy status to other drugs, medicaments and biological substances
CPT/HCPCS: 36415; 49083; 71046; 76705; 80048; 80053; 82140; 82550; 83690; 83735; 83880; 84484; 85025; 85027; 85610; 85730; 96374; 96375; 99285

== ENCOUNTER 2020-03-02 14:30 | Inpatient (IN) | payer MEDICARE, OTHER ==
[2020-03-02] MEDS ORDERED: SODIUM CHLORIDE 0.9% 1,000 ML IV ONE (14:39)
[2020-03-02 15:07] LABS: Basophils % (A) 0 %; Eosinophils # (A) 0.1 k/uL (0-0.7); Eosinophils % (A) 1 %; HCT 37.8 % (34.0-46.0); HGB 12.3 gm/dL (11.4-16.0); Lymphocytes # (A) 0.7 k/uL (1.0-4.8); Lymphocytes % (A) 16 %; MCH 33.9 pg (25.0-35.0); MCHC 32.6 g/dL (31.0-37.0); MCV 103.8 fL (80.0-100.0); Macrocytosis Slight; Monocytes # (A) 0.2 k/uL (0-1.0); Monocytes % (A) 4 %; Neutrophils # (A) 3.7 k/uL (1.3-7.7); Neutrophils % (A) 77 %; RBC 3.64 m/uL (3.80-5.40); RDW 14.8 % (11.5-15.5); WBC 4.7 k/uL (3.8-10.6)
[2020-03-02 15:15] LABS: INR 1.4 (<1.2); Partial Thromboplastin Time 25.1 sec (22.0-30.0); Prothrombin Time 13.8 sec (9.0-12.0)
[2020-03-02 15:19] LABS: Albumin 2.7 g/dL (3.5-5.0); Calcium 8.4 mg/dL (8.4-10.2); Potassium 3.6 mmol/L (3.5-5.1); Total Bilirubin 3.1 mg/dL (0.2-1.3); Total Protein 6.9 g/dL (6.3-8.2)
[2020-03-02 15:22] LABS: Platelet Count 98 k/uL (150-450)
--- NOTE | 2020-03-02 15:24 | XR ---
EXAMINATION TYPE: XR chest 1V portable DATE OF EXAM: 03/02/2020 COMPARISON: 02/03/2020 HISTORY: Weakness TECHNIQUE: FINDINGS: There is no heart failure nor confluent pneumonic infiltrate. Heart size is normal. Thoraci c aorta is atheromatous. There is no pleural effusion. Bony thorax appears intact. IMPRESSION: No active cardiopulmonary disease. Normal heart. No change.
[2020-03-02] MEDS ORDERED: SODIUM CHLORIDE 0.9% 1,000 ML IV STA (15:39)
[2020-03-02] MEDS ORDERED: SODIUM CHLORIDE 0.9% 500 ML 500 ML IV STA (15:39)
--- NOTE | 2020-03-02 15:43 | ED ---
Altered Mental Status HPI - General Source: patient, EMS, RN notes reviewed, old records reviewed Mode of arrival: EMS Limitations: no limitations - History of Present Illness MD Complaint: altered mental status, decreased responsiveness <Isrrael Fishman - Last Filed: 03/02/20 15:40> <Maral Dubois - Last Filed: 03/04/20 23:52> - General Chief Complaint: Altered Mental Status Stated Complaint: altered mental status Time Seen by Provider: 03/02/20 14:30 - History of Present Illness Initial Comments: This is a 74-year-old female history of liver cancer cirrhosis and ascites who also is had a history of elevated ammonia levels was brought in today by EMS for evaluation of altered mental status. Per report the patient was less responsive than usual today confused consistent with generally is with elevated ammonia levels. No focal deficits no recent history of trauma no fevers chills nausea vomiting. No other modifying factors at this time (Isrrael Fishman) - Related Data Home Medications Medication Instructions Recorded Confirmed Sucralfate [Carafate] 1 gm PO QID 10/23/18 03/04/20 Insulin Regular, Human [NovoLIN R] 10 unit SQ AC-TID 10/24/18 03/04/20 Cholecalciferol [Vitamin D3 (25 4,000 unit PO DAILY 01/16/19 03/04/20 Mcg = 1000 Iu)] Ferrous Sulfate [Iron (65 MG 325 mg PO BID 01/31/19 03/04/20 Elemental)] buPROPion HCL [Wellbutrin SR] 150 mg PO DAILY 06/12/19 03/04/20 clonazePAM [KlonoPIN] 0.5 mg PO BID PRN 06/12/19 03/04/20 Isosorbide Mononitrate ER [Imdur] 30 mg PO DAILY@0800 11/25/19 03/04/20 Spironolactone [Aldactone] 25 mg PO DAILY 11/25/19 03/04/20 Dicyclomine [Bentyl] 20 mg PO QID 01/04/20 03/04/20 Insulin NPH Human Isophane 18 unit SQ BID 01/04/20 03/04/20 [humuLIN N] Morphine Sulfate ER [Ms Contin] 30 mg PO Q12HR 01/04/20 03/04/20 Morphine Sulfate Ir [MSIR] 15 mg PO Q8H PRN 01/04/20 03/04/20 Metoprolol Tartrate [Lopressor] 6.25 mg PO DAILY 02/03/20 03/04/20 Omeprazole Magnesium [PriLOSEC OTC] 20 mg PO BID 02/03/20 03/04/20 Ondansetron Odt [Zofran ODT] 8 mg PO DAILY 02/03/20 03/04/20 Previous Rx's Medication Instructions Recorded Torsemide [Demadex] 20 mg PO DAILY tab 11/21/19 Lactulose [Cephulac] 30 gm PO TID 7 Days #1000 ml 11/30/19 Allergies Allergy/AdvReac Type Severity Reaction Status Date / Time amlodipine Allergy Rash/Hives Verified 03/04/20 12:14 oxycodone Allergy Rash/Hives Verified 03/04/20 12:14 Penicillins Allergy Rash/Hives Verified 03/04/20 12:14 hydromorphone [From Dilaudid] AdvReac Mild tactile Verified 03/04/20 12:14 disturbance GREG Inhibitors AdvReac Cough Verified 03/04/20 12:14 sodium dodecyclbenzene Allergy Rash/Hives Uncoded 03/04/20 12:14 sulfonate Review of Systems ROS Other: All systems not noted in ROS Statement are negative. <Isrrael Fishman - Last Filed: 03/02/20 15:40> ROS Other: All systems not noted in ROS Statement are negative. <Maral Dubois - Last Filed: 03/04/20 23:52> ROS Statement: Those systems with pertinent positive or pertinent negative responses have been documented in the HPI. Past Medical History Past Medical History: Cancer, Diabetes Mellitus, Hypertension, Liver Disease, Myocardial Infarction (AL), Renal Disease Additional Past Medical History / Comment(s): Hepatocellular liver cancer with chemo immobilization-last time being 2017, ascities with paracentesis's Sep 2019, nonalcoholic liver cirrhosis, chronic pancytopenia, chronic elevated ammonia levels, hepatic encephalopathy, chronic elevated LFTs, chronic abdominal pain, stomach ulcer, diverticular disease with ileostomy, IDDM type II, iron anemia, CKD stage III, nonsustained vtach, UTI, high ammonia levels Last Myocardial Infarction Date:: unk History of Any Multi-Drug Resistant Organisms: MRSA, VRE Date of last positivie culture/infection: 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 Past Anesthesia/Blood Transfusion Reactions: No Reported Reaction Past Psychological History: Anxiety, Depression Smoking Status: Former smoker Past Alcohol Use History: None Reported Past Drug Use History: None Reported - Past Family History Mother History Unknown: Yes Family Medical History: Congestive Heart Failure (CHF) Additional Family Medical History / Comment(s): Mother is 94 yrs old. Father Family Medical History: Chest Pain / Angina Additional Family Medical History / Comment(s): Father is . <KyeIsrrael - Last Filed: 03/02/20 15:40> General Exam Limitations: no limitations General appearance: alert, lethargic Head exam: Present: atraumatic, normocephalic, normal inspection Eye exam: Present: scleral icterus ENT exam: Present: mucous membranes dry Neck exam: Present: normal inspection, full ROM, other (No stridor JVD or bruits). Absent: tenderness, meningismus, lymphadenopathy Respiratory exam: Present: normal lung sounds bilaterally. Absent: respiratory distress, wheezes, rales, rhonchi, stridor Cardiovascular Exam: Present: regular rate, normal rhythm, normal heart sounds. Absent: systolic murmur, diastolic murmur, rubs, gallop, clicks GI/Abdominal exam: Present: soft, distended (Consistent with ascites), normal bowel sounds. Absent: tenderness, guarding, rebound, rigid Extremities exam: Present: normal inspection, full ROM, normal capillary refill. Absent: tenderness, pedal edema, joint swelling, calf tenderness Back exam: Present: normal inspection Neurological exam: Present: alert, oriented X3, CN II-XII intact Psychiatric exam: Present: normal affect, normal mood Skin exam: Present: warm, dry, intact. Absent: normal color (Jaundice), rash <KyeIsrrael - Last Filed: 03/02/20 15:40> - General Exam Comments Initial Comments: This is a well-developed well-nourished jaundiced-appearing patient was awake but somewhat slow to respond. She doesn't believe is either Wednesday or Wednesday today is actually Wednesday. She does know that she is in the hospital. (Isrrael Fishman) Course <Isrrael Fishman - Last Filed: 03/02/20 15:40> Vital Signs 03/02/20 03/02/20 03/02/20 14:32 15:00 16:00 Temperature 98.7 F Pulse Rate 69 65 68 Respiratory 18 18 17 Rate Blood Pressure 138/72 138/72 O2 Sat by Pulse 98 98 100 Oximetry 03/02/20 17:00 Temperature 98.5 F Pulse Rate 69 Respiratory 18 Rate Blood Pressure 127/70 O2 Sat by Pulse 100 Oximetry - Reevaluation(s) Reevaluation #1: 03/02/20 15:43 Patient's care will be endorsed to Dr. Dubois at our shift change pending CAT scan. (Isrrael Fishman) Medical Decision Making - Lab Data Result diagrams: 03/02/20 14:57 03/02/20 14:57 - EKG Data -: EKG Interpreted by Me EKG shows normal: sinus rhythm (Sinus rhythm with occasional PVCs rate was 71 appear interval 156 QRS 136 QT since QTC 492/534 left exodeviation right bundle- branch block and voltage criteria for LVH) <Isrrael Fishman - Last Filed: 03/02/20 15:40> - Lab Data Result diagrams: 03/03/20 06:36 03/04/20 05:05 <Maral Dubois - Last Filed: 03/04/20 23:52> - Medical Decision Making The patient was signed out to me at shift change. I did review her laboratory studies and CT of her brain. I discussed the laboratory studies with the patient. I did recommend hospital admission for which the patient did agree to. I discussed the case with Dr. Townsend who accepted admission for the patient. I'm currently awaiting her urinalysis. UA returns and is grossly infected therefore I added on antibiotics prior to transfer to the floor. (Maral Dubois) - Lab Data Lab Results 03/02/20 03/02/20 03/02/20 Range/Units 14:57 14:57 14:57 WBC 4.7 (3.8-10.6) k/uL RBC 3.64 L (3.80-5.40) m/uL Hgb 12.3 (11.4-16.0) gm/dL Hct 37.8 (34.0-46.0) % MCV 103.8 H (80.0-100.0) fL MCH 33.9 (25.0-35.0) pg MCHC 32.6 (31.0-37.0) g/dL RDW 14.8 (11.5-15.5) % Plt Count 98 L (150-450) k/uL Neutrophils % 77 % Lymphocytes % 16 % Monocytes % 4 % Eosinophils % 1 % Basophils % 0 % Neutrophils # 3.7 (1.3-7.7) k/uL Lymphocytes # 0.7 L (1.0-4.8) k/uL Monocytes # 0.2 (0-1.0) k/uL Eosinophils # 0.1 (0-0.7) k/uL Basophils # 0.0 (0-0.2) k/uL Manual Slide Review Performed Macrocytosis Slight PT 13.8 H (9.0-12.0) sec INR 1.4 H (<1.2) APTT 25.1 (22.0-30.0) sec Sodium 137 (137-145) mmol/L Potassium 3.6 (3.5-5.1) mmol/L Chloride 106 (98-107) mmol/L Carbon Dioxide 24 (22-30) mmol/L Anion Gap 7 mmol/L BUN 28 H (7-17) mg/dL Creatinine 1.24 H (0.52-1.04) mg/dL Est GFR (CKD-EPI)AfAm 50 (>60 ml/min/1.73 sqM) Est GFR (CKD-EPI)NonAf 44 (>60 ml/min/1.73 sqM) Glucose 102 H (74-99) mg/dL POC Glucose (mg/dL) (75-99) mg/dL POC Glu [employer] ID Calcium 8.4 (8.4-10.2) mg/dL Total Bilirubin 3.1 H (0.2-1.3) mg/dL AST 90 H (14-36) U/L ALT 41 H (4-34) U/L Alkaline Phosphatase 295 H (38-126) U/L Ammonia (<30) umol/L Creatine Kinase 252 H (30-135) U/L Troponin I (0.000-0.034) ng/mL Total Protein 6.9 (6.3-8.2) g/dL Albumin 2.7 L (3.5-5.0) g/dL Urine Color Urine Appearance (Clear) Urine pH (5.0-8.0) Ur Specific [place] (1.001-1.035) Urine Protein (Negative) Urine Glucose (UA) (Negative) Urine Ketones (Negative) Urine Blood (Negative) Urine Nitrite (Negative) Urine Bilirubin (Negative) Urine Urobilinogen (<2.0) mg/dL Ur Leukocyte Esterase (Negative) Urine RBC (0-5) /hpf Urine WBC (0-5) /hpf Ur Squamous Epith Cells (0-4) /hpf Urine Bacteria (None) /hpf Urine Opiates Screen (NotDetected) Ur Oxycodone Screen (NotDetected) Urine Methadone Screen (NotDetected) Ur Propoxyphene Screen (NotDetected) Ur Barbiturates Screen (NotDetected) U Tricyclic Antidepress (NotDetected) Ur Phencyclidine Scrn (NotDetected) Ur Amphetamines Screen (NotDetected) U Methamphetamines Scrn (NotDetected) U Benzodiazepines Scrn (NotDetected) Urine Cocaine Screen (NotDetected) U Marijuana (THC) Screen (NotDetected) 03/02/20 03/02/20 03/02/20 Range/Units 14:57 14:57 16:35 WBC (3.8-10.6) k/uL RBC (3.80-5.40) m/uL Hgb (11.4-16.0) gm/dL Hct (34.0-46.0) % MCV (80.0-100.0) fL MCH (25.0-35.0) pg MCHC (31.0-37.0) g/dL RDW (11.5-15.5) % Plt Count (150-450) k/uL Neutrophils % % Lymphocytes % % Monocytes % % Eosinophils % % Basophils % % Neutrophils # (1.3-7.7) k/uL Lymphocytes # (1.0-4.8) k/uL Monocytes # (0-1.0) k/uL Eosinophils # (0-0.7) k/uL Basophils # (0-0.2) k/uL Manual Slide Review Macrocytosis PT (9.0-12.0) sec INR (<1.2) APTT (22.0-30.0) sec Sodium (137-145) mmol/L Potassium (3.5-5.1) mmol/L Chloride (98-107) mmol/L Carbon Dioxide (22-30) mmol/L Anion Gap mmol/L BUN (7-17) mg/dL Creatinine (0.52-1.04) mg/dL Est GFR (CKD-EPI)AfAm (>60 ml/min/1.73 sqM) Est GFR (CKD-EPI)NonAf (>60 ml/min/1.73 sqM) Glucose (74-99) mg/dL POC Glucose (mg/dL) 99 (75-99) mg/dL POC Glu [employer] ID Sunshine Sy Calcium (8.4-10.2) mg/dL Total Bilirubin (0.2-1.3) mg/dL AST (14-36) U/L ALT (4-34) U/L Alkaline Phosphatase (38-126) U/L Ammonia 50 H (<30) umol/L Creatine Kinase (30-135) U/L Troponin I 0.119 H* (0.000-0.034) ng/mL Total Protein (6.3-8.2) g/dL Albumin (3.5-5.0) g/dL Urine Color Urine Appearance (Clear) Urine pH (5.0-8.0) Ur Specific [place] (1.001-1.035) Urine Protein (Negative) Urine Glucose (UA) (Negative) Urine Ketones (Negative) Urine Blood (Negative) Urine Nitrite (Negative) Urine Bilirubin (Negative) Urine Urobilinogen (<2.0) mg/dL Ur Leukocyte Esterase (Negative) Urine RBC (0-5) /hpf Urine WBC (0-5) /hpf Ur Squamous Epith Cells (0-4) /hpf Urine Bacteria (None) /hpf Urine Opiates Screen (NotDetected) Ur Oxycodone Screen (NotDetected) Urine Methadone Screen (NotDetected) Ur Propoxyphene Screen (NotDetected) Ur Barbiturates Screen (NotDetected) U Tricyclic Antidepress (NotDetected) Ur Phencyclidine Scrn (NotDetected) Ur Amphetamines Screen (NotDetected) U Methamphetamines Scrn (NotDetected) U Benzodiazepines Scrn (NotDetected) Urine Cocaine Screen (NotDetected) U Marijuana (THC) Screen (NotDetected) 03/02/20 03/02/20 03/03/20 Range/Units 17:43 20:25 06:36 WBC 4.7 (3.8-10.6) k/uL RBC 3.06 L (3.80-5.40) m/uL Hgb 10.5 L (11.4-16.0) gm/dL Hct 32.2 L (34.0-46.0) % MCV 105.3 H (80.0-100.0) fL MCH 34.3 (25.0-35.0) pg MCHC 32.6 (31.0-37.0) g/dL RDW 14.9 (11.5-15.5) % Plt Count 86 L (150-450) k/uL Neutrophils % 81 % Lymphocytes % 11 % Monocytes % 6 % Eosinophils % 1 % Basophils % 0 % Neutrophils # 3.8 (1.3-7.7) k/uL Lymphocytes # 0.5 L (1.0-4.8) k/uL Monocytes # 0.3 (0-1.0) k/uL Eosinophils # 0.1 (0-0.7) k/uL Basophils # 0.0 (0-0.2) k/uL Manual Slide Review Macrocytosis Moderate PT (9.0-12.0) sec INR (<1.2) APTT (22.0-30.0) sec Sodium (137-145) mmol/L Potassium (3.5-5.1) mmol/L Chloride (98-107) mmol/L Carbon Dioxide (22-30) mmol/L Anion Gap mmol/L BUN (7-17) mg/dL Creatinine (0.52-1.04) mg/dL Est GFR (CKD-EPI)AfAm (>60 ml/min/1.73 sqM) Est GFR (CKD-EPI)NonAf (>60 ml/min/1.73 sqM) Glucose (74-99) mg/dL POC Glucose (mg/dL) 109 H (75-99) mg/dL POC Glu [employer] ID Debbie, Siobhan, Itzel Calcium (8.4-10.2) mg/dL Total Bilirubin (0.2-1.3) mg/dL AST (14-36) U/L ALT (4-34) U/L Alkaline Phosphatase (38-126) U/L Ammonia (<30) umol/L Creatine Kinase (30-135) U/L Troponin I (0.000-0.034) ng/mL Total Protein (6.3-8.2) g/dL Albumin (3.5-5.0) g/dL Urine Color Yellow Urine Appearance Clear (Clear) Urine pH 5.0 (5.0-8.0) Ur Specific [place] 1.009 (1.001-1.035) Urine Protein Negative (Negative) Urine Glucose (UA) Negative (Negative) Urine Ketones Negative (Negative) Urine Blood Negative (Negative) Urine Nitrite Positive H (Negative) Urine Bilirubin Negative (Negative) Urine Urobilinogen <2.0 (<2.0) mg/dL Ur Leukocyte Esterase Negative (Negative) Urine RBC <1 (0-5) /hpf Urine WBC <1 (0-5) /hpf Ur Squamous Epith Cells <1 (0-4) /hpf Urine Bacteria Few H (None) /hpf Urine Opiates Screen Detected H (NotDetected) Ur Oxycodone Screen Not Detected (NotDetected) Urine Methadone Screen Not Detected (NotDetected) Ur Propoxyphene Screen Not Detected (NotDetected) Ur Barbiturates Screen Not Detected (NotDetected) U Tricyclic Antidepress Not Detected (NotDetected) Ur Phencyclidine Scrn Not Detected (NotDetected) Ur Amphetamines Screen Not Detected (NotDetected) U Methamphetamines Scrn Not Detected (NotDetected) U Benzodiazepines Scrn Not Detected (NotDetected) Urine Cocaine Screen Not Detected (NotDetected) U Marijuana (THC) Screen Not Detected (NotDetected) 03/03/20 03/03/20 Range/Units 06:36 06:57 WBC (3.8-10.6) k/uL RBC (3.80-5.40) m/uL Hgb (11.4-16.0) gm/dL Hct (34.0-46.0) % MCV (80.0-100.0) fL MCH (25.0-35.0) pg MCHC (31.0-37.0) g/dL RDW (11.5-15.5) % Plt Count (150-450) k/uL Neutrophils % % Lymphocytes % % Monocytes % % Eosinophils % % Basophils % % Neutrophils # (1.3-7.7) k/uL Lymphocytes # (1.0-4.8) k/uL Monocytes # (0-1.0) k/uL Eosinophils # (0-0.7) k/uL Basophils # (0-0.2) k/uL Manual Slide Review Macrocytosis PT (9.0-12.0) sec INR (<1.2) APTT (22.0-30.0) sec Sodium 135 L (137-145) mmol/L Potassium 3.2 L (3.5-5.1) mmol/L Chloride 107 (98-107) mmol/L Carbon Dioxide 21 L (22-30) mmol/L Anion Gap 7 mmol/L BUN 27 H (7-17) mg/dL Creatinine 1.06 H (0.52-1.04) mg/dL Est GFR (CKD-EPI)AfAm 61 (>60 ml/min/1.73 sqM) Est GFR (CKD-EPI)NonAf 53 (>60 ml/min/1.73 sqM) Glucose 64 L (74-99) mg/dL POC Glucose (mg/dL) 79 (75-99) mg/dL POC Glu [employer] ID Dang Abrams Calcium 8.0 L (8.4-10.2) mg/dL Total Bilirubin (0.2-1.3) mg/dL AST (14-36) U/L ALT (4-34) U/L Alkaline Phosphatase (38-126) U/L Ammonia (<30) umol/L Creatine Kinase (30-135) U/L Troponin I (0.000-0.034) ng/mL Total Protein (6.3-8.2) g/dL Albumin (3.5-5.0) g/dL Urine Color Urine Appearance (Clear) Urine pH (5.0-8.0) Ur Specific [place] (1.001-1.035) Urine Protein (Negative) Urine Glucose (UA) (Negative) Urine Ketones (Negative) Urine Blood (Negative) Urine Nitrite (Negative) Urine Bilirubin (Negative) Urine Urobilinogen (<2.0) mg/dL Ur Leukocyte Esterase (Negative) Urine RBC (0-5) /hpf Urine WBC (0-5) /hpf Ur Squamous Epith Cells (0-4) /hpf Urine Bacteria (None) /hpf Urine Opiates Screen (NotDetected) Ur Oxycodone Screen (NotDetected) Urine Methadone Screen (NotDetected) Ur Propoxyphene Screen (NotDetected) Ur Barbiturates Screen (NotDetected) U Tricyclic Antidepress (NotDetected) Ur Phencyclidine Scrn (NotDetected) Ur Amphetamines Screen (NotDetected) U Methamphetamines Scrn (NotDetected) U Benzodiazepines Scrn (NotDetected) Urine Cocaine Screen (NotDetected) U Marijuana (THC) Screen (NotDetected) Disposition <Isrrael Fishman - Last Filed: 03/02/20 15:40> Is patient prescribed a controlled substance at d/c from ED?: No Decision to Admit Reason: Admit from EC Decision Date: 03/02/20 Decision Time: 16:51 <Maral Dubois - Last Filed: 03/04/20 23:52> Clinical Impression: History of liver cancer, Hepatocellular carcinoma, Change in mental status Disposition: ADMITTED IP TO THIS [facility] Condition: Stable
--- NOTE | 2020-03-02 16:23 | CT ---
EXAMINATION TYPE: CT brain wo con DATE OF EXAM: 03/02/2020 COMPARISON: 11/25/2019 HISTORY: AMS CT DLP: 1099.4 mGycm Automated exposure control for dose reduction was used. There is mild cerebral cortical atrophy. There is no mass effect nor midline shift. There is no sign of intracranial hemorrhage. The calvarium is intact. IMPRESSION: Cerebral atrophy. No acute intracranial abnormality. No change.
[2020-03-02 16:36] LABS: Glucose,Whole Blood 99 mg/dL (75-99)
[2020-03-02] MEDS ORDERED: NALOXONE 0.4 MG/ML 1 ML VIAL IV PRN (17:05)
[2020-03-02 17:52] LABS: Appearance,Urine Clear (Clear); Bacteria,Urine Few /hpf; Bilirubin,Urine Negative (Negative); Blood,Urine Negative (Negative); Color,Urine Yellow; Glucose,Urine (UA) Negative (Negative); Ketones,Urine Negative (Negative); Leukocyte Esterase,Urine Negative (Negative); Nitrite,Urine Positive (Negative); Protein,Urine Negative (Negative); RBC,Urine <1 /hpf (0-5); Specific Gravity,Urine 1.009 (1.001-1.035); Squamous Epithelial Cell,Urine <1 /hpf (0-4); Urobilinogen,Urine <2.0 mg/dL (<2.0); WBC,Urine <1 /hpf (0-5)
[2020-03-02 18:02] LABS: Amphetamine Screen,Urine Not Detected (NotDetected); Barbiturate Screen,Urine Not Detected (NotDetected); Benzodiazepines Screen,Urine Not Detected (NotDetected); Cocaine Screen,Urine Not Detected (NotDetected); Methadone Screen, Urine Not Detected (NotDetected); Opiate Screen,Urine Detected (NotDetected); Oxycodone Screen, Urine Not Detected (NotDetected); Phencyclidine Screen,Urine Not Detected (NotDetected); Tricyclic Antidepressant,Urine Not Detected (NotDetected); Urn Cannabinoid Scrn Not Detected (NotDetected)
--- NOTE | 2020-03-02 18:27 | P.HPIM ---
History of Present Illness H&P Date: 03/02/20 Chief Complaint: Confusion Patient is a 74-year-old female with history of hepatocellular carcinoma, recurrent ascites, diabetes type 2, chronic kidney disease stage III hyper tension, decompensated cirrhosis, hypoalbuminemia. Patient presented to the emergency room today complaining of confusion that has been increasing over the last 2 days. Patient also described increasing abdominal pain. Patient was last hospitalized to facility the end of January. Patient denies any fevers, chills, cough, chest pain, shortness of breath. In the emergency room patient was frontal WBC count 4.7, hematocrit crit of 37.8, platelet count of 98,000, INR 1.4, BUN/creatinine of 28, creatinine of 1.24, patient was given a dose of Rocephin determined to need further hospitalization. Review of Systems Complete review of systems done and negative other than stated above Past Medical History Past Medical History: Cancer, Diabetes Mellitus, Hypertension, Liver Disease, Myocardial Infarction ([place]), Renal Disease Additional Past Medical History / Comment(s): Hepatocellular liver cancer with c hemo immobilization-last time being 2017, ascities with paracentesis's Sep 2019, nonalcoholic liver cirrhosis, chronic pancytopenia, chronic elevated ammonia levels, hepatic encephalopathy, chronic elevated LFTs, chronic abdominal pain, stomach ulcer, diverticular disease with ileostomy, IDDM type II, iron anemia, CKD stage III, nonsustained vtach, UTI, high ammonia levels Last Myocardial Infarction Date:: unk History of Any Multi-Drug Resistant Organisms: MRSA, VRE Date of last positivie culture/infection: 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 Past Anesthesia/Blood Transfusion Reactions: No Reported Reaction Past Psychological History: Anxiety, Depression Smoking Status: Former smoker Past Alcohol Use History: None Reported Past Drug Use History: None Reported - Past Family History Mother History Unknown: Yes Family Medical History: Congestive Heart Failure (CHF) Additional Family Medical History / Comment(s): Mother is 94 yrs old. Father Family Medical History: Chest Pain / Angina Additional Family Medical History / Comment(s): Father is . Medications and Allergies Home Medications Medication Instructions Recorded Confirmed Type Sucralfate [Carafate] 1 gm PO QID 10/23/18 02/03/20 History Insulin Regular, Human [NovoLIN R] 10 unit SQ AC-TID 10/24/18 02/03/20 History Cholecalciferol [Vitamin D3 (25 4,000 unit PO DAILY 01/16/19 02/03/20 History Mcg = 1000 Iu)] Ferrous Sulfate [Iron (65 MG 325 mg PO BID 01/31/19 02/03/20 History Elemental)] buPROPion HCL [Wellbutrin SR] 150 mg PO DAILY 06/12/19 02/03/20 History clonazePAM [KlonoPIN] 0.5 mg PO BID PRN 06/12/19 02/03/20 History Torsemide [Demadex] 20 mg PO DAILY tab 11/21/19 02/03/20 Rx Isosorbide Mononitrate ER [Imdur] 30 mg PO DAILY@0800 11/25/19 02/03/20 History Spironolactone [Aldactone] 25 mg PO DAILY 11/25/19 02/03/20 History Lactulose [Cephulac] 30 gm PO TID 7 Days #1000 ml 11/30/19 02/03/20 Rx Dicyclomine [Bentyl] 20 mg PO QID 01/04/20 02/03/20 History Insulin NPH Human Isophane 18 unit SQ BID 01/04/20 02/03/20 History [humuLIN N] Morphine Sulfate ER [Ms Contin] 30 mg PO Q12HR 01/04/20 02/03/20 History Morphine Sulfate Ir [MSIR] 15 mg PO Q8H PRN 01/04/20 02/03/20 History Metoprolol Tartrate [Lopressor] 6.25 mg PO DAILY 02/03/20 02/03/20 History Omeprazole Magnesium [PriLOSEC OTC] 20 mg PO BID 02/03/20 02/03/20 History Ondansetron Odt [Zofran ODT] 8 mg PO DAILY 02/03/20 02/03/20 History Allergies Allergy/AdvReac Type Severity Reaction Status Date / Time amlodipine Allergy Rash/Hives Verified 03/02/20 18:10 oxycodone Allergy Rash/Hives Verified 03/02/20 18:10 Penicillins Allergy Rash/Hives Verified 03/02/20 18:10 hydromorphone [From Dilaudid] AdvReac Mild tactile Verified 03/02/20 18:10 disturbance GREG Inhibitors AdvReac Cough Verified 03/02/20 18:10 sodium dodecyclbenzene Allergy Rash/Hives Uncoded 03/02/20 18:10 sulfonate Physical Exam Vitals: Vital Signs Temp Pulse Resp BP Pulse Ox 03/02/20 17:54 67 18 127/70 98 03/02/20 17:00 98.5 F 69 18 127/70 100 03/02/20 16:00 68 17 100 03/02/20 15:00 65 18 138/72 98 03/02/20 14:32 98.7 F 69 18 138/72 98 Intake and Output 03/02/20 03/02/20 03/02/20 06:59 14:59 22:59 Other: Weight 74.843 kg - Constitutional Chronically Ill appearing - EENT Eyes: PERRLA, scleral icterus - Respiratory Respiratory: bilateral: CTA - Cardiovascular Rhythm: regular - Gastrointestinal Plus bowel sounds, distended, tender to palpation no rebound or guarding, plus ascites - Integumentary Integumentary: jaundiced - Neurologic Neurologic: CNII-XII intact - Musculoskeletal Musculoskeletal: generalized weakness, strength equal bilaterally - Psychiatric Patient is alert and oriented 2 she was oriented to person and place Results CBC & Chem 7: 03/02/20 14:57 03/02/20 14:57 Labs: Abnormal Lab Results - Last 24 Hours (Table) 03/02/20 03/02/20 03/02/20 Range/Units 14:57 14:57 14:57 RBC 3.64 L (3.80-5.40) m/uL MCV 103.8 H (80.0-100.0) fL Plt Count 98 L (150-450) k/uL Lymphocytes # 0.7 L (1.0-4.8) k/uL PT 13.8 H (9.0-12.0) sec INR 1.4 H (<1.2) BUN 28 H (7-17) mg/dL Creatinine 1.24 H (0.52-1.04) mg/dL Glucose 102 H (74-99) mg/dL Total Bilirubin 3.1 H (0.2-1.3) mg/dL AST 90 H (14-36) U/L ALT 41 H (4-34) U/L Alkaline Phosphatase 295 H (38-126) U/L Ammonia (<30) umol/L Creatine Kinase 252 H (30-135) U/L Troponin I (0.000-0.034) ng/mL Albumin 2.7 L (3.5-5.0) g/dL Urine Nitrite (Negative) Urine Bacteria (None) /hpf Urine Opiates Screen (NotDetected) 03/02/20 03/02/20 03/02/20 Range/Units 14:57 14:57 17:43 RBC (3.80-5.40) m/uL MCV (80.0-100.0) fL Plt Count (150-450) k/uL Lymphocytes # (1.0-4.8) k/uL PT (9.0-12.0) sec INR (<1.2) BUN (7-17) mg/dL Creatinine (0.52-1.04) mg/dL Glucose (74-99) mg/dL Total Bilirubin (0.2-1.3) mg/dL AST (14-36) U/L ALT (4-34) U/L Alkaline Phosphatase (38-126) U/L Ammonia 50 H (<30) umol/L Creatine Kinase (30-135) U/L Troponin I 0.119 H* (0.000-0.034) ng/mL Albumin (3.5-5.0) g/dL Urine Nitrite Positive H (Negative) Urine Bacteria Few H (None) /hpf Urine Opiates Screen Detected H (NotDetected) Thrombosis Risk Factor Assmnt - DVT/VTE Prophylaxis DVT/VTE Prophylaxis: Contraindicated - See note (Patient with thrombocytopenia) Assessment and Plan (1) Abdominal pain Narrative/Plan: Patient with 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 Patient has required paracentesis in the past would check ultrasound it appears to [place] paracentesis revealed the 05 of February pain control Current Visit: No Status: Acute Priority: High Code(s): R10.9 - UNSPECIFIED ABDOMINAL PAIN SNOMED Code(s): 72083031 (2) Change in mental status Narrative/Plan: Patient is a history of hepatic encephalopathy she was oriented appears close to her baseline we will monitor likely a common combination of metabolic encephalopathy with the presence of a urinary tract infection Current Visit: Yes Status: Acute Code(s): R41.82 - ALTERED MENTAL STATUS, UNSPECIFIED SNOMED Code(s): 326645534 (3) MORENA (acute kidney injury) Narrative/Plan: Patient due to low albumin will give a gentle dose of IV did hydration Current Visit: No Status: Acute Code(s): N17.9 - ACUTE KIDNEY FAILURE, UNSPECIFIED SNOMED Code(s): 19035668 (4) UTI (urinary tract infection) Narrative/Plan: We'll continue Rocephin and await urine cultures Current Visit: Yes Status: Acute Code(s): N39.0 - URINARY TRACT INFECTION, SITE NOT SPECIFIED SNOMED Code(s): 39029917 (5) Hepatocellular carcinoma Narrative/Plan: Continue outpatient regimen patient on chronic opioids Current Visit: Yes Status: Chronic Priority: Medium Code(s): C22.0 - LIVER CELL CARCINOMA SNOMED Code(s): 938446807 Plan: Disposition: Anticipated the patient in the integrated into midnights they given that she has multiple hospitalizations she is high risk for having resistant organisms we'll continue her Rocephin will await urine cultures patient may also need paracentesis anticipated that she'll need greater than 2 midnights stay
[2020-03-02] MEDS: MORPHINE SULFATE 2 MG/ML SYRINGE IVP PRN (18:54)
[2020-03-02] MEDS ORDERED: clonazePAM 0.5 MG TAB PO PRN (19:15)
--- NOTE | 2020-03-02 20:15 | US ---
EXAMINATION TYPE: US abdomen limited DATE OF EXAM: 03/02/2020 COMPARISON: CT 01/25/2020 CLINICAL HISTORY: pain ascites. assess for fluid Small amount of ascites visualized, largest pocket left lower quadrant measuring 8.5 cm IMPRESSION: Abdominal ascites is demonstrated in all 4 quadrants.
[2020-03-02 20:26] LABS: Glucose,Whole Blood 109 mg/dL (75-99)
[2020-03-02] MEDS: LACTULOSE 20 GM/30 ML CUP PO SCH (20:44)
[2020-03-02] MEDS: MORPHINE SULFATE ER 30 MG TABLET PO SCH (20:44)
[2020-03-02] MEDS: SUCRALFATE 1 GM TAB PO SCH (20:44)
[2020-03-02] MEDS: FERROUS SULFATE 325 MG TAB PO SCH (20:44)
[2020-03-02] MEDS: DICYCLOMINE 20 MG TAB PO SCH (20:44)
[2020-03-02] MEDS: INSULIN NPH 300 UNIT/3 ML VIAL SQ SCH (20:45)
[2020-03-02] MEDS: MORPHINE SULFATE IR 15 MG TABLET PO PRN (20:48)
[2020-03-03] MEDS: MORPHINE SULFATE IR 15 MG TABLET PO PRN ×3 (06:58→22:06)
[2020-03-03] MEDS: PANTOPRAZOLE 40 MG TABLET PO SCH (06:58)
[2020-03-03 06:59] LABS: Glucose,Whole Blood 79 mg/dL (75-99)
[2020-03-03 07:30] LABS: Basophils % (A) 0 %; Eosinophils # (A) 0.1 k/uL (0-0.7); Eosinophils % (A) 1 %; HCT 32.2 % (34.0-46.0); HGB 10.5 gm/dL (11.4-16.0); Lymphocytes # (A) 0.5 k/uL (1.0-4.8); Lymphocytes % (A) 11 %; MCH 34.3 pg (25.0-35.0); MCHC 32.6 g/dL (31.0-37.0); MCV 105.3 fL (80.0-100.0); Macrocytosis Moderate; Mean Platelet Volume 9.5; Monocytes # (A) 0.3 k/uL (0-1.0); Monocytes % (A) 6 %; Neutrophils # (A) 3.8 k/uL (1.3-7.7); Neutrophils % (A) 81 %; RBC 3.06 m/uL (3.80-5.40); RDW 14.9 % (11.5-15.5); WBC 4.7 k/uL (3.8-10.6)
[2020-03-03 07:31] LABS: Platelet Count 86 k/uL (150-450)
[2020-03-03 07:41] LABS: Potassium 3.2 mmol/L (3.5-5.1)
[2020-03-03] MEDS: LACTULOSE 20 GM/30 ML CUP PO SCH ×3 (08:12→22:07)
[2020-03-03] MEDS: INSULIN NPH 300 UNIT/3 ML VIAL SQ SCH ×2 (08:13→22:08)
[2020-03-03] MEDS: SUCRALFATE 1 GM TAB PO SCH ×4 (08:14→22:08)
[2020-03-03] MEDS: SPIRONOLACTONE 25 MG TAB PO SCH (08:14)
[2020-03-03] MEDS: buPROPion SR 150 MG TABLET.ER PO SCH (08:14)
[2020-03-03] MEDS: METOPROLOL TARTRATE 12.5 MG TAB PO SCH (08:14)
[2020-03-03] MEDS: INSULIN REGULAR 100 UNIT/ML VIAL SQ SCH ×3 (08:14→17:38)
[2020-03-03] MEDS: MORPHINE SULFATE ER 30 MG TABLET PO SCH ×2 (08:14→20:19)
[2020-03-03] MEDS: CHOLECALCIFEROL 1,000 UNIT TAB PO SCH (08:15)
[2020-03-03] MEDS: FERROUS SULFATE 325 MG TAB PO SCH ×2 (08:16→20:20)
[2020-03-03] MEDS: TORSEMIDE 20 MG TAB PO SCH (08:16)
[2020-03-03] MEDS: DICYCLOMINE 20 MG TAB PO SCH ×4 (08:16→22:08)
[2020-03-03] MEDS: ISOSORBIDE MONONITRATE ER 30 MG TAB.ER.24H PO SCH (08:16)
[2020-03-03] MEDS ORDERED: POTASSIUM CHLORIDE 20 MEQ in WATER FOR INJECTION 1 100ML.BAG IVPB STA (09:40)
[2020-03-03] MEDS ORDERED: POTASSIUM CHLORIDE ER 20 MEQ TAB.ER PO STA (10:59)
[2020-03-03 11:58] LABS: Glucose,Whole Blood 186 mg/dL (75-99)
--- NOTE | 2020-03-03 15:33 | P.PN ---
Subjective Progress Note Date: 03/03/20 Principal diagnosis: Metabolic encephalopathy secondary to urinary tract infection Patient is a 74-year-old female with history of hepatocellular carcinoma, recurrent ascites, diabetes type 2, chronic kidney disease, hypertension, decompensated cirrhosis presented with confusion that had been increasing over last 2 days. Patient also described abdominal pain that was increasing. Patient has a history of ascites requiring therapeutic paracenteses. This was performed [facility] at the end of January. Patient denied any fever, chills, cough she had a white count of 4.7, hematocrit hemoglobin of 37.8 platelet count of 90,000 and INR 1.4, BUN/creatinine 28 and a creatinine 1.4. Patient was positive for nitrites she was given a dose of Rocephin determined to need further hospitalization. Objective - Vital Signs Vital signs: Vital Signs Temp 97.6 F 03/03/20 07:45 Pulse 74 03/03/20 07:45 Resp 18 03/03/20 07:45 BP 117/61 03/03/20 07:45 Pulse Ox 100 03/03/20 07:45 Intake & Output 03/02/20 03/03/20 03/03/20 18:59 06:59 18:59 Intake Total 836 Balance 836 Weight 74.843 kg 87.2 kg Intake: Oral 836 Other: Voiding Method Toilet - Constitutional General appearance: Present: no acute distress, thin - EENT Eyes: Present: scleral icterus - Respiratory Respiratory: bilateral: CTA - Cardiovascular Rhythm: regular - Gastrointestinal Localized gastrointestinal: tender: diffuse - Neurologic Neurologic Comment(s): Tremors - Psychiatric Psychiatric Comment(s): Alert and oriented 2 - Labs CBC & Chem 7: 03/03/20 06:36 03/03/20 06:36 Labs: Abnormal Lab Results - Last 24 Hours (Table) 03/02/20 03/02/20 03/02/20 Range/Units 14:57 14:57 14:57 RBC 3.64 L (3.80-5.40) m/uL Hgb (11.4-16.0) gm/dL Hct (34.0-46.0) % MCV 103.8 H (80.0-100.0) fL Plt Count 98 L (150-450) k/uL Lymphocytes # 0.7 L (1.0-4.8) k/uL PT 13.8 H (9.0-12.0) sec INR 1.4 H (<1.2) Sodium (137-145) mmol/L Potassium (3.5-5.1) mmol/L Carbon Dioxide (22-30) mmol/L BUN 28 H (7-17) mg/dL Creatinine 1.24 H (0.52-1.04) mg/dL Glucose 102 H (74-99) mg/dL POC Glucose (mg/dL) (75-99) mg/dL Calcium (8.4-10.2) mg/dL Total Bilirubin 3.1 H (0.2-1.3) mg/dL AST 90 H (14-36) U/L ALT 41 H (4-34) U/L Alkaline Phosphatase 295 H (38-126) U/L Ammonia (<30) umol/L Creatine Kinase 252 H (30-135) U/L Troponin I (0.000-0.034) ng/mL Albumin 2.7 L (3.5-5.0) g/dL Urine Nitrite (Negative) Urine Bacteria (None) /hpf Urine Opiates Screen (NotDetected) 03/02/20 03/02/20 03/02/20 Range/Units 14:57 14:57 17:43 RBC (3.80-5.40) m/uL Hgb (11.4-16.0) gm/dL Hct (34.0-46.0) % MCV (80.0-100.0) fL Plt Count (150-450) k/uL Lymphocytes # (1.0-4.8) k/uL PT (9.0-12.0) sec INR (<1.2) Sodium (137-145) mmol/L Potassium (3.5-5.1) mmol/L Carbon Dioxide (22-30) mmol/L BUN (7-17) mg/dL Creatinine (0.52-1.04) mg/dL Glucose (74-99) mg/dL POC Glucose (mg/dL) (75-99) mg/dL Calcium (8.4-10.2) mg/dL Total Bilirubin (0.2-1.3) mg/dL AST (14-36) U/L ALT (4-34) U/L Alkaline Phosphatase (38-126) U/L Ammonia 50 H (<30) umol/L Creatine Kinase (30-135) U/L Troponin I 0.119 H* (0.000-0.034) ng/mL Albumin (3.5-5.0) g/dL Urine Nitrite Positive H (Negative) Urine Bacteria Few H (None) /hpf Urine Opiates Screen Detected H (NotDetected) 03/02/20 03/03/20 03/03/20 Range/Units 20:25 06:36 06:36 RBC 3.06 L (3.80-5.40) m/uL Hgb 10.5 L (11.4-16.0) gm/dL Hct 32.2 L (34.0-46.0) % MCV 105.3 H (80.0-100.0) fL Plt Count 86 L (150-450) k/uL Lymphocytes # 0.5 L (1.0-4.8) k/uL PT (9.0-12.0) sec INR (<1.2) Sodium 135 L (137-145) mmol/L Potassium 3.2 L (3.5-5.1) mmol/L Carbon Dioxide 21 L (22-30) mmol/L BUN 27 H (7-17) mg/dL Creatinine 1.06 H (0.52-1.04) mg/dL Glucose 64 L (74-99) mg/dL POC Glucose (mg/dL) 109 H (75-99) mg/dL Calcium 8.0 L (8.4-10.2) mg/dL Total Bilirubin (0.2-1.3) mg/dL AST (14-36) U/L ALT (4-34) U/L Alkaline Phosphatase (38-126) U/L Ammonia (<30) umol/L Creatine Kinase (30-135) U/L Troponin I (0.000-0.034) ng/mL Albumin (3.5-5.0) g/dL Urine Nitrite (Negative) Urine Bacteria (None) /hpf Urine Opiates Screen (NotDetected) 03/03/20 Range/Units 11:57 RBC (3.80-5.40) m/uL Hgb (11.4-16.0) gm/dL Hct (34.0-46.0) % MCV (80.0-100.0) fL Plt Count (150-450) k/uL Lymphocytes # (1.0-4.8) k/uL PT (9.0-12.0) sec INR (<1.2) Sodium (137-145) mmol/L Potassium (3.5-5.1) mmol/L Carbon Dioxide (22-30) mmol/L BUN (7-17) mg/dL Creatinine (0.52-1.04) mg/dL Glucose (74-99) mg/dL POC Glucose (mg/dL) 186 H (75-99) mg/dL Calcium (8.4-10.2) mg/dL Total Bilirubin (0.2-1.3) mg/dL AST (14-36) U/L ALT (4-34) U/L Alkaline Phosphatase (38-126) U/L Ammonia (<30) umol/L Creatine Kinase (30-135) U/L Troponin I (0.000-0.034) ng/mL Albumin (3.5-5.0) g/dL Urine Nitrite (Negative) Urine Bacteria (None) /hpf Urine Opiates Screen (NotDetected) Assessment and Plan (1) Abdominal pain Narrative/Plan: Patient abdominal ultrasound showed a small amount of ascites with a left pocket of 8.5 cm. however patient appears comfortable no need for paracentesis at this time Current Visit: No Status: Acute Priority: High Code(s): R10.9 - UNSPECIFIED ABDOMINAL PAIN SNOMED Code(s): 37750154 (2) Change in mental status Current Visit: Yes Status: Acute Code(s): R41.82 - ALTERED MENTAL STATUS, UNSPECIFIED SNOMED Code(s): 187760762 (3) MORENA (acute kidney injury) Narrative/Plan: Issues slight dehydration on admission [place] she is higher risk for third spacing. will discontinue Fluids Current Visit: No Status: Acute Code(s): N17.9 - ACUTE KIDNEY FAILURE, UNSPECIFIED SNOMED Code(s): 58519901 (4) UTI (urinary tract infection) Narrative/Plan: Likely contributing to her confusion which was present on admission, urine cultures are not available we will repeat her cultures continue Rocephin Current Visit: Yes Status: Acute Code(s): N39.0 - URINARY TRACT INFECTION, SITE NOT SPECIFIED SNOMED Code(s): 91883556 (5) Hepatocellular carcinoma Current Visit: Yes Status: Chronic Priority: Medium Code(s): C22.0 - LIVER CELL CARCINOMA SNOMED Code(s): 429281209 Plan: Patient presented with confusion which appears to have a chronic component, she had nitrites positive and show UA tight suspicion for urinary tract infection. Patient is currently Rocephin urine cultures were not sent will be sent today, her abdominal pain appears chronic anticipate patient will be discharged within the next 24-48 hours.
[2020-03-03 16:48] LABS: Glucose,Whole Blood 65 mg/dL (75-99)
[2020-03-03 17:07] LABS: Glucose,Whole Blood 69 mg/dL (75-99)
[2020-03-03 17:20] LABS: Glucose,Whole Blood 74 mg/dL (75-99)
[2020-03-03 19:56] LABS: Glucose,Whole Blood 103 mg/dL (75-99)
[2020-03-03] MEDS: MORPHINE SULFATE 2 MG/ML SYRINGE IVP PRN (23:49)
[2020-03-04 06:10] LABS: Glucose,Whole Blood 91 mg/dL (75-99)
[2020-03-04 06:20] LABS: Potassium 4.1 mmol/L (3.5-5.1)
[2020-03-04] MEDS: PANTOPRAZOLE 40 MG TABLET PO SCH (06:32)
[2020-03-04] MEDS: INSULIN REGULAR 100 UNIT/ML VIAL SQ SCH ×3 (06:34→18:43)
[2020-03-04] MEDS: MORPHINE SULFATE ER 30 MG TABLET PO SCH ×2 (09:40→22:18)
[2020-03-04] MEDS: buPROPion SR 150 MG TABLET.ER PO SCH (09:40)
[2020-03-04] MEDS: SUCRALFATE 1 GM TAB PO SCH ×4 (09:40→20:57)
[2020-03-04] MEDS: DICYCLOMINE 20 MG TAB PO SCH ×4 (09:45→20:57)
[2020-03-04 11:45] LABS: Glucose,Whole Blood 65 mg/dL (75-99)
[2020-03-04 12:12] LABS: Glucose,Whole Blood 74 mg/dL (75-99)
[2020-03-04] MEDS: LACTULOSE 20 GM/30 ML CUP PO SCH ×3 (12:12→20:58)
[2020-03-04 13:38] LABS: Appearance,BF Hazy; Color,BF Yellow; Nucleated Cells, Body Fluid 24 /uL; RBC, Body Fluid 95 /uL
[2020-03-04] MEDS: METOPROLOL TARTRATE 12.5 MG TAB PO SCH (13:39)
[2020-03-04] MEDS: SPIRONOLACTONE 25 MG TAB PO SCH (13:40)
[2020-03-04] MEDS: TORSEMIDE 20 MG TAB PO SCH (13:40)
[2020-03-04] MEDS: FERROUS SULFATE 325 MG TAB PO SCH ×2 (13:40→20:57)
[2020-03-04] MEDS: ISOSORBIDE MONONITRATE ER 30 MG TAB.ER.24H PO SCH (13:41)
[2020-03-04] MEDS: CHOLECALCIFEROL 1,000 UNIT TAB PO SCH (13:43)
--- NOTE | 2020-03-04 13:43 | US ---
EXAMINATION TYPE: US paracentesis abd w/image DATE OF EXAM: 03/04/2020 COMPARISON: NONE HISTORY: Ascites. PROCEDURE: Maximal barrier technique was utilized. The skin overlying a suitable pocket of fluid was localized with ultrasound and the overlying skin was prepped and draped. Ultrasound was utilized with sterile technique. Lidocaine was used for local anesthesia and a skin jenny made with a scalpel. Catheter was advanced under direct ultrasound guidance into a suitable pocket of fluid and approximately 2.6 liter s of serous fluid were removed. Catheter was withdrawn and hemostasis achieved. There is no immedia te complication; the patient is discharged in stable condition. Specimen submitted for analysis. IMPRESSION: STATUS POST ULTRASOUND GUIDED PARACENTESIS FOR PALLIATION AND DIAGNOSIS OF ASCITES. THI S PROCEDURE WAS PERFORMED BY THE UNDERSIGNED.
[2020-03-04] MEDS: MORPHINE SULFATE 2 MG/ML SYRINGE IVP PRN ×2 (13:44→19:47)
[2020-03-04 13:54] LABS: Mononuclear WBC,Body Fluid 84 %; Polynuclear WBC,Body Fluid 16 %; Total Cells Counted,Body Fluid 100
--- NOTE | 2020-03-04 14:29 | P.PN ---
Subjective Progress Note Date: 03/04/20 Principal diagnosis: Confusion Patient is a 74-year-old female well-known to our service from multiple hospitalizations secondary to recurrent ascites due to nonalcoholic steatohepatitis, hepatocellular carcinoma that had been in remission and status post radiation, diabetes mellitus type 2, and chronic kidney disease stage III who presented to the hospital with complaints of increasing abdominal pain and confusion. On arrival to the ER she was noted to have thrombocytopenia with a platelet count of 98, BUN 28, creatinine 1.24, urinalysis was obtained which was positive for nitrates which showed no white blood cells urine drug screen was positive for opiates, AST and ALT were at baseline. There is concern for possible urinary tract infection and she was started on Rocephin. She remained afebrile and did not have a white blood cell count during her hospital stay. Despite taking her lactulose her ammonia level increased slightly. Rifaxamin added and GI consulted. Of note she states that she was supposed to be started on a pill for her liver mass but this has not happened yet. Patient seen and examined at bedside. Worsening of her ABD pain and feeling bad, no nausea, no vomiting, no diarrhea, Still has not gotten treatment for worsening liver mas, increased bruising recently and increased confusion. Still living with her son and [id number]. Objective - Vital Signs Vital signs: Vital Signs Temp 98.2 F 03/04/20 11:40 Pulse 66 03/04/20 12:00 Resp 16 03/04/20 11:40 BP 114/59 03/04/20 12:00 Pulse Ox 99 03/04/20 12:00 Intake & Output 03/03/20 03/04/20 03/04/20 18:59 06:59 18:59 Intake Total 886 450 290 Balance 886 450 290 Weight 90.2 kg Intake: IV 50 cefTRIAXone 1 gm In 50 Sodium Chloride 0.9% 50 ml @ 100 mls/hr IVPB Q24HR [facility] Rx#:[id number] Intake, IV Titration 50 Amount cefTRIAXone 1 gm In 50 Sodium Chloride 0.9% 50 ml @ 100 mls/hr IVPB Q24HR [facility] Rx#:[id number] Oral 836 450 240 Other: Voiding Method Toilet Toilet - Exam General: ill appearing, no distress, appears older than stated age Derm: multiple areas of ecchymosis, warm, dry Head: atraumatic, normocephalic, symmetric Eyes: EOMI, no lid lag, anicteric sclera Mouth: no lip lesion, mucus membranes moist Cardiovascular: S1S2 reg, no murmur, positive posterior tibial pulse bilateral, Lungs: Decreased bs bilateral, no rhonchi, no rales , no accessory muscle use Abdominal: soft, + tender to palpation diffusely, no guarding, no appreciable organomegaly Ext: no gross muscle atrophy, no edema, no contractures Neuro: CN II-XI grossly intact, no focal neuro deficits Psych: Alert, oriented, appropriate affect, slowed thinking - Labs CBC & Chem 7: 03/03/20 06:36 03/04/20 05:05 Labs: Abnormal Lab Results - Last 24 Hours (Table) 03/03/20 03/03/20 03/03/20 Range/Units 16:46 17:05 17:19 Sodium (137-145) mmol/L Chloride (98-107) mmol/L Carbon Dioxide (22-30) mmol/L BUN (7-17) mg/dL Creatinine (0.52-1.04) mg/dL POC Glucose (mg/dL) 65 L 69 L 74 L (75-99) mg/dL Calcium (8.4-10.2) mg/dL Ammonia (<30) umol/L 03/03/20 03/04/20 03/04/20 Range/Units 19:55 05:05 05:05 Sodium 135 L (137-145) mmol/L Chloride 108 H (98-107) mmol/L Carbon Dioxide 21 L (22-30) mmol/L BUN 26 H (7-17) mg/dL Creatinine 1.39 H (0.52-1.04) mg/dL POC Glucose (mg/dL) 103 H (75-99) mg/dL Calcium 8.0 L (8.4-10.2) mg/dL Ammonia 203 H (<30) umol/L 03/04/20 03/04/20 03/04/20 Range/Units 10:02 11:44 12:02 Sodium (137-145) mmol/L Chloride (98-107) mmol/L Carbon Dioxide (22-30) mmol/L BUN (7-17) mg/dL Creatinine (0.52-1.04) mg/dL POC Glucose (mg/dL) 65 L 74 L (75-99) mg/dL Calcium (8.4-10.2) mg/dL Ammonia 68 H (<30) umol/L Microbiology - Last 24 Hours (Table) 03/03/20 15:26 Urine Culture - Preliminary Urine,Clean Catch 03/02/20 19:41 Blood Culture - Preliminary Blood No Growth after 24 hours Assessment and Plan Assessment: Decompensated cirrhosis with refractory ascities secondary to nonalcoholic stea tohepatitis status post paracentesis with concern for possible peritonitis -Await peritoneal fluid analysis -Status post paracentesis with removal of 2.7 L of fluid -Continue with Rocephin -Continue with torsemide and Aldactone -Consult GI -Blood cultures negative to date Hepatic encephalopathy -Lactulose -add rifaxamin Hepatocellular carcinoma status post chemo embolization - Increasing size of liver mass noted in November 2019 -Follow up with her outpatient oncologist, states is supposed to be starting a pill Diabetes mellitus type 2 with hypoglycemia -Decreased insulin N and an insulin R - Accu-Cheks every before meals, at bedtime, and 2 AM -Last hemoglobin A1c 5.1 - Concerned with liver disease and risk of prolonged hypoglycemia, likely will need less insulin on discharge. D/W patient. Chronically elevated troponin -No further workup necessary Urinary tract infection ruled out DVT prophylaxis:SCDs Discussed with: Patient, nursing Anticipated discharge: 1-[address]: home A total of 40 minutes was spent on the care of this complex patient more than 50% of the time was spent in counseling and care coordination.
[2020-03-04] MEDS: RIFAXIMIN 550 MG TABLET PO SCH ×2 (15:57→20:57)
[2020-03-04 16:54] LABS: Glucose,Whole Blood 261 mg/dL (75-99)
--- NOTE | 2020-03-04 17:08 | P.PN ---
Subjective Progress Note Date: 03/04/20 Principal diagnosis: Decompensated cirrhosis with ascites and encephalopathy Attempted to see the patient today, however the patient was not in her room she was undergoing a paracentesis. Will follow up and consult on the patient tomorrow. Objective - Vital Signs Vital signs: Vital Signs Temp 98.2 F 03/04/20 11:40 Pulse 57 L 03/04/20 15:51 Resp 18 03/04/20 15:51 BP 110/57 03/04/20 15:51 Pulse Ox 100 03/04/20 15:51 Intake & Output 03/03/20 03/04/20 03/04/20 18:59 06:59 18:59 Intake Total 886 450 890 Output Total 2600 Balance 886 450 -1710 Weight 90.2 kg Intake: IV 50 cefTRIAXone 1 gm In 50 Sodium Chloride 0.9% 50 ml @ 100 mls/hr IVPB Q24HR [facility] Rx#:[id number] Intake, IV Titration 50 Amount cefTRIAXone 1 gm In 50 Sodium Chloride 0.9% 50 ml @ 100 mls/hr IVPB Q24HR [facility] Rx#:[id number] Oral 836 450 840 Output: Other 2600 Other: Voiding Method Toilet Toilet - Labs CBC & Chem 7: 03/03/20 06:36 03/04/20 05:05 Labs: Abnormal Lab Results - Last 24 Hours (Table) 03/03/20 03/03/20 03/04/20 Range/Units 17:19 19:55 05:05 Sodium 135 L (137-145) mmol/L Chloride 108 H (98-107) mmol/L Carbon Dioxide 21 L (22-30) mmol/L BUN 26 H (7-17) mg/dL Creatinine 1.39 H (0.52-1.04) mg/dL POC Glucose (mg/dL) 74 L 103 H (75-99) mg/dL Calcium 8.0 L (8.4-10.2) mg/dL Ammonia (<30) umol/L 03/04/20 03/04/20 03/04/20 Range/Units 05:05 10:02 11:44 Sodium (137-145) mmol/L Chloride (98-107) mmol/L Carbon Dioxide (22-30) mmol/L BUN (7-17) mg/dL Creatinine (0.52-1.04) mg/dL POC Glucose (mg/dL) 65 L (75-99) mg/dL Calcium (8.4-10.2) mg/dL Ammonia 203 H 68 H (<30) umol/L 03/04/20 03/04/20 Range/Units 12:02 16:52 Sodium (137-145) mmol/L Chloride (98-107) mmol/L Carbon Dioxide (22-30) mmol/L BUN (7-17) mg/dL Creatinine (0.52-1.04) mg/dL POC Glucose (mg/dL) 74 L 261 H (75-99) mg/dL Calcium (8.4-10.2) mg/dL Ammonia (<30) umol/L Microbiology - Last 24 Hours (Table) 03/03/20 15:26 Urine Culture - Preliminary Urine,Clean Catch 03/02/20 19:41 Blood Culture - Preliminary Blood No Growth after 24 hours
[2020-03-04 19:53] LABS: Glucose,Whole Blood 148 mg/dL (75-99)
[2020-03-04] MEDS: INSULIN NPH 300 UNIT/3 ML VIAL SQ SCH (20:57)
[2020-03-04 21:01] LABS: Total Protein, Body Fluid 1065 mg/dL
[2020-03-05 02:26] LABS: Glucose,Whole Blood 127 mg/dL (75-99)
[2020-03-05 05:49] LABS: Albumin 2.8 g/dL (3.5-5.0); Basophils % (A) 0 %; Calcium 8.1 mg/dL (8.4-10.2); Eosinophils # (A) 0.2 k/uL (0-0.7); Eosinophils % (A) 4 %; HCT 35.9 % (34.0-46.0); HGB 11.7 gm/dL (11.4-16.0); Lymphocytes # (A) 1.2 k/uL (1.0-4.8); Lymphocytes % (A) 22 %; MCH 35.2 pg (25.0-35.0); MCHC 32.6 g/dL (31.0-37.0); MCV 107.9 fL (80.0-100.0); Macrocytosis Marked; Mean Platelet Volume 9.5; Monocytes # (A) 0.4 k/uL (0-1.0); Monocytes % (A) 7 %; Neutrophils # (A) 3.6 k/uL (1.3-7.7); Neutrophils % (A) 65 %; Potassium 4.1 mmol/L (3.5-5.1); RBC 3.33 m/uL (3.80-5.40); RDW 14.9 % (11.5-15.5); Total Bilirubin 2.3 mg/dL (0.2-1.3); WBC 5.7 k/uL (3.8-10.6)
[2020-03-05 06:13] LABS: Platelet Count 97 k/uL (150-450)
[2020-03-05] MEDS: PANTOPRAZOLE 40 MG TABLET PO SCH (06:24)
[2020-03-05 06:28] LABS: Glucose,Whole Blood 139 mg/dL (75-99)
[2020-03-05] MEDS: INSULIN REGULAR 100 UNIT/ML VIAL SQ SCH ×2 (07:13→12:25)
[2020-03-05] MEDS: METOPROLOL TARTRATE 12.5 MG TAB PO SCH (09:37)
[2020-03-05] MEDS: LACTULOSE 20 GM/30 ML CUP PO SCH (09:37)
[2020-03-05] MEDS: buPROPion SR 150 MG TABLET.ER PO SCH (09:37)
[2020-03-05] MEDS: SUCRALFATE 1 GM TAB PO SCH ×2 (09:38→14:49)
[2020-03-05] MEDS: SPIRONOLACTONE 25 MG TAB PO SCH (09:38)
[2020-03-05] MEDS: RIFAXIMIN 550 MG TABLET PO SCH (09:38)
[2020-03-05] MEDS: MORPHINE SULFATE ER 30 MG TABLET PO SCH (09:38)
[2020-03-05] MEDS: TORSEMIDE 20 MG TAB PO SCH (09:39)
[2020-03-05] MEDS: ISOSORBIDE MONONITRATE ER 30 MG TAB.ER.24H PO SCH (09:39)
[2020-03-05] MEDS: INSULIN NPH 300 UNIT/3 ML VIAL SQ SCH ×2 (09:39→12:34)
[2020-03-05] MEDS: DICYCLOMINE 20 MG TAB PO SCH ×2 (09:39→14:49)
[2020-03-05] MEDS: FERROUS SULFATE 325 MG TAB PO SCH (09:39)
[2020-03-05] MEDS: CHOLECALCIFEROL 1,000 UNIT TAB PO SCH (09:53)
[2020-03-05] MEDS: MORPHINE SULFATE IR 15 MG TABLET PO PRN (09:53)
[2020-03-05 10:57] VITALS: BP 106/58; PULSE 69; RESP 18; TEMP 99.4
[2020-03-05 11:42] LABS: Glucose,Whole Blood 153 mg/dL (75-99)
--- NOTE | 2020-03-05 14:33 | P.DS ---
Providers Date of admission: 03/03/20 08:43 Expected date of discharge: 03/05/20 Attending physician: Apolonia Townsend MD Consults: 03/04/20 09:00 Consult Physician Routine Consulting Provider: Ananth Francois Consult Reason/Comments: ascities, hepatic encephalopathy Do you want consulting provider notified?: Yes Primary care physician: Gilma Martinez Hospital Course: Discharge Diagnosis: Decompensated cirrhosis with refractory ascities secondary to nonalcoholic steatohepatitis status post paracentesis with concern for possible peritonitis Hepatic encephalopathy Hepatocellular carcinoma status post chemo embolization, with increasing mass size Diabetes mellitus type 2 with hypoglycemia Chronically elevated troponin Urinary tract infection ruled out Hospital Course: Patient is a 74-year-old female well-known to our service from multiple hospitalizations secondary to recurrent ascites due to nonalcoholic steatohepatitis, hepatocellular carcinoma that had been in remission and status post radiation, diabetes mellitus type 2, and chronic kidney disease stage III who presented to the hospital with complaints of increasing abdominal pain and confusion. On arrival to the ER she was noted to have thrombocytopenia with a platelet count of 98, BUN 28, creatinine 1.24, urinalysis was obtained which was positive for nitrates which showed no white blood cells urine drug screen was positive for opiates, AST and ALT were at baseline. There is concern for possible urinary tract infection and she was started on Rocephin. She remained afebrile and did not have a white blood cell count during her hospital stay. Despite taking her lactulose her ammonia level increased slightly. Rifaxamin added and GI consulted. Of note she states that she was supposed to be started on a pill for her liver mass but this has not happened yet she is still working with her oncologist. She had a paracentesis on 03/04/2020 with removal of 2.6L of fluid she did have some PMNs located in her fluid and this could be altered due to 4 days of ABX and we will complete a 5 days treatment course. GI evaluated the patient and agreed with rifaximin. She was determined stable to discharge home. Patient seen and examined at bedside. Feeling back to baseline. No chest pain, no nausea, no vomiting, no diarrhea. We discussed needing to follow with palliative care closely. She still wants to be a full code. Discussed likely live for rehospitalization. Vital signs reviewed and stable. General: chronically ill appearing, no distress, appears at stated age Derm: Ecchymosis diffusely, warm, dry Head: atraumatic, normocephalic, symmetric Eyes: EOMI, no lid lag, anicteric sclera Mouth: no lip lesion, mucus membranes moist Cardiovascular: S1S2 reg, no murmur, positive posterior tibial pulse bilateral, Lungs: Decreased bs bilateral, no rhonchi, no rales , no accessory muscle use Abdominal: soft, + tender to palpation diffusely, no guarding, no appreciable organomegaly Ext: no gross muscle atrophy, 1+ edema, no contractures Neuro: CN II-XI grossly intact, no focal neuro deficits Psych: Alert, oriented, appropriate affect A total of 35 minutes of time were spent preparing this complex discharge summary. Patient Condition at Discharge: Stable Plan - Discharge Summary Discharge Rx Participant: No New Discharge Prescriptions: New Rifaximin [Xifaxan] 550 mg PO BID #60 tablet Continue Sucralfate [Carafate] 1 gm PO QID Cholecalciferol [Vitamin D3 (25 Mcg = 1000 Iu)] 4,000 unit PO DAILY Ferrous Sulfate [Iron (65 MG Elemental)] 325 mg PO BID buPROPion HCL [Wellbutrin SR] 150 mg PO DAILY clonazePAM [KlonoPIN] 0.5 mg PO BID PRN PRN Reason: Anxiety Torsemide [Demadex] 20 mg PO DAILY tab Isosorbide Mononitrate ER [Imdur] 30 mg PO DAILY@0800 Spironolactone [Aldactone] 25 mg PO DAILY Dicyclomine [Bentyl] 20 mg PO QID Morphine Sulfate Ir [MSIR] 15 mg PO Q8H PRN PRN Reason: Breakthrough Pain Morphine Sulfate ER [Ms Contin] 30 mg PO Q12HR Ondansetron Odt [Zofran ODT] 8 mg PO DAILY Omeprazole Magnesium [PriLOSEC OTC] 20 mg PO BID Metoprolol Tartrate [Lopressor] 6.25 mg PO DAILY Lactulose [Cephulac] 30 gm PO TID #1000 ml Changed Insulin NPH Human Isophane [humuLIN N] 15 unit SQ BID #0 Insulin Regular, Human [NovoLIN R] 8 unit SQ AC-TID #0 Discharge Medication List Sucralfate [Carafate] 1 gm PO QID 10/23/18 [History] Cholecalciferol [Vitamin D3 (25 Mcg = 1000 Iu)] 4,000 unit PO DAILY 01/16/19 [History] Ferrous Sulfate [Iron (65 MG Elemental)] 325 mg PO BID 01/31/19 [History] buPROPion HCL [Wellbutrin SR] 150 mg PO DAILY 06/12/19 [History] clonazePAM [KlonoPIN] 0.5 mg PO BID PRN 06/12/19 [History] Torsemide [Demadex] 20 mg PO DAILY tab 11/21/19 [Rx] Isosorbide Mononitrate ER [Imdur] 30 mg PO DAILY@0800 11/25/19 [History] Spironolactone [Aldactone] 25 mg PO DAILY 11/25/19 [History] Dicyclomine [Bentyl] 20 mg PO QID 01/04/20 [History] Morphine Sulfate ER [Ms Contin] 30 mg PO Q12HR 01/04/20 [History] Morphine Sulfate Ir [MSIR] 15 mg PO Q8H PRN 01/04/20 [History] Metoprolol Tartrate [Lopressor] 6.25 mg PO DAILY 02/03/20 [History] Omeprazole Magnesium [PriLOSEC OTC] 20 mg PO BID 02/03/20 [History] Ondansetron Odt [Zofran ODT] 8 mg PO DAILY 02/03/20 [History] Insulin NPH Human Isophane [humuLIN N] 15 unit SQ BID #0 03/05/20 [Rx] Insulin Regular, Human [NovoLIN R] 8 unit SQ AC-TID #0 03/05/20 [Rx] Lactulose [Cephulac] 30 gm PO TID #1000 ml 03/05/20 [Rx] Rifaximin [Xifaxan] 550 mg PO BID #60 tablet 03/05/20 [Rx] Follow up Appointment(s)/Referral(s): [facility], [NON-STAFF] - Gilma Martinez MD [Primary Care Provider] - 1-2 days Carley Valverde MD [STAFF PHYSICIAN] - 2 Weeks Activity/Diet/Wound Care/Special Instructions: Activity: as tolerated Diet: 2 gram sodium, 2L fluid restriction Special Instructions: Follow with palliative care Discharge Disposition: HOME WITH HOME HEALTH SERVICES
== END 2020-03-05 18:03 | disposition home health service (06) | DRG 432 ==
LOC: EC 14:30 → 3SCARD 17:05 → OBSVTOIN 03-03 08:43
PROVIDERS: ADMIT Internal Medicine; ATTEND Internal Medicine
PROC: 0W9G3ZZ Drainage of Peritoneal Cavity, Percutaneous Approach (ICD-10-PCS; principal; 2020-03-04)
DX: K74.60 Unspecified cirrhosis of liver (principal); K65.9 Peritonitis, unspecified; N17.9 Acute kidney failure, unspecified; C22.0 Liver cell carcinoma; R18.8 Other ascites; I12.9 Hypertensive chronic kidney disease with stage 1 through stage 4 chronic kidney disease, or unspecified chronic kidney disease; E11.22 Type 2 diabetes mellitus with diabetic chronic kidney disease; K72.90 Hepatic failure, unspecified without coma; E11.649 Type 2 diabetes mellitus with hypoglycemia without coma; F32.9 Major depressive disorder, single episode, unspecified; F41.9 Anxiety disorder, unspecified; N18.3 Chronic kidney disease, stage 3 (moderate); K75.81 Nonalcoholic steatohepatitis (NASH); R79.89 Other specified abnormal findings of blood chemistry; Z79.899 Other long term (current) drug therapy; Z79.891 Long term (current) use of opiate analgesic; Z79.4 Long term (current) use of insulin; Z88.5 Allergy status to narcotic agent; Z88.0 Allergy status to penicillin; Z88.8 Allergy status to other drugs, medicaments and biological substances; Z90.710 Acquired absence of both cervix and uterus; I25.2 Old myocardial infarction; Z87.440 Personal history of urinary (tract) infections; Z86.14 Personal history of Methicillin resistant Staphylococcus aureus infection; Z90.49 Acquired absence of other specified parts of digestive tract; Z90.89 Acquired absence of other organs; Z98.890 Other specified postprocedural states; Z85.05 Personal history of malignant neoplasm of liver; Z87.891 Personal history of nicotine dependence; Z92.3 Personal history of irradiation; Z92.21 Personal history of antineoplastic chemotherapy; Z87.11 Personal history of peptic ulcer disease; Z82.49 Family history of ischemic heart disease and other diseases of the circulatory system
CPT/HCPCS: 36415; 49083; 70450; 71045; 76705; 80048; 80053; 80306; 81001; 82140; 82550; 84157; 84484; 85025; 85610; 85730; 87040; 87070; 87086; 87205; 89050; 93005; 96360; 96361; 99285

== ENCOUNTER 2020-03-08 21:47 | Inpatient (IN) | payer MEDICARE, OTHER ==
[2020-03-08] MEDS ORDERED: SODIUM CHLORIDE 0.9% 1,000 ML IV STA (21:57)
[2020-03-08] MEDS ORDERED: MORPHINE SULFATE 4 MG/ML SYRINGE IVP STA (22:02)
[2020-03-08] MEDS ORDERED: LORazepam 2 MG/ML INJ IV STA (22:02)
[2020-03-08] MEDS ORDERED: ONDANSETRON 4 MG/2 ML VIAL IVP STA (22:02)
--- NOTE | 2020-03-08 22:02 | ED ---
Abdominal Pain HPI - General Chief Complaint: Abdominal Pain Stated Complaint: abd pain Time Seen by Provider: 03/08/20 21:57 Source: patient, EMS, RN notes reviewed, old records reviewed Mode of arrival: EMS Limitations: no limitations - History of Present Illness Initial Comments: This is a 74-year-old female DF for evaluation known history of cancer diffuse cancer coming in for severe pain intractable pain intractable nausea intractable vomiting not feeling well, patient having decreased appetite secondary still pain unable to take medications secondary to nausea. No fevers. No diarrhea. MD Complaint: abdominal pain -: days(s) Location: diffuse, periumbilical, epigastric Radiation: epigastric, suprapubic Migration to: epigastric, suprapubic Severity: severe Quality: cramping, stabbing, aching Consistency: intermittent Worsens With: nothing Associated Symptoms: nausea, anorexia Treatments Prior to Arrival: prescription analgesics - Related Data Home Medications Medication Instructions Recorded Confirmed Sucralfate [Carafate] 1 gm PO QID 10/23/18 03/08/20 Cholecalciferol [Vitamin D3 (25 4,000 unit PO DAILY 01/16/19 03/08/20 Mcg = 1000 Iu)] Ferrous Sulfate [Iron (65 MG 325 mg PO BID 01/31/19 03/08/20 Elemental)] buPROPion HCL [Wellbutrin SR] 150 mg PO DAILY 06/12/19 03/08/20 Spironolactone [Aldactone] 25 mg PO DAILY 11/25/19 03/08/20 Dicyclomine [Bentyl] 20 mg PO QID 01/04/20 03/08/20 Metoprolol Tartrate [Lopressor] 6.25 mg PO DAILY 02/03/20 03/08/20 Omeprazole Magnesium [PriLOSEC OTC] 20 mg PO BID 02/03/20 03/08/20 Ondansetron Odt [Zofran ODT] 8 mg PO DAILY 02/03/20 03/08/20 Previous Rx's Medication Instructions Recorded Torsemide [Demadex] 20 mg PO DAILY tab 11/21/19 Insulin NPH Human Isophane 15 unit SQ BID #0 03/05/20 [humuLIN N] Lactulose [Cephulac] 30 gm PO TID #1000 ml 03/05/20 Rifaximin [Xifaxan] 550 mg PO BID #60 tablet 03/05/20 Morphine Sulfate ER [Ms Contin] 15 mg PO Q12HR #60 tablet 03/14/20 Morphine Sulfate Ir [MSIR] 15 mg PO Q8H PRN #30 tab 03/14/20 clonazePAM [KlonoPIN] 0.5 mg PO BID PRN 30 Days #30 tab 03/14/20 Allergies Allergy/AdvReac Type Severity Reaction Status Date / Time amlodipine Allergy Rash/Hives Verified 03/08/20 22:55 oxycodone Allergy Rash/Hives Verified 03/08/20 22:55 Penicillins Allergy Rash/Hives Verified 03/08/20 22:55 hydromorphone [From Dilaudid] AdvReac Mild tactile Verified 03/08/20 22:55 disturbance GREG Inhibitors AdvReac Cough Verified 03/08/20 22:55 sodium dodecyclbenzene Allergy Rash/Hives Uncoded 03/04/20 12:14 sulfonate Review of Systems ROS Statement: Those systems with pertinent positive or pertinent negative responses have been documented in the HPI. ROS Other: All systems not noted in ROS Statement are negative. Past Medical History Past Medical History: Cancer, Diabetes Mellitus, Hypertension, Liver Disease, Myocardial Infarction (CA), Renal Disease Additional Past Medical History / Comment(s): Hepatocellular liver cancer with chemo immobilization-last time being 2017, nonalcoholic liver cirrhosis, chronic pancytopenia, chronic elevated ammonia levels, hepatic encephalopathy, chronic elevated LFTs, chronic abdominal pain, stomach ulcer, diverticular disease with ileostomy, IDDM type II, iron anemia, CKD stage III, nonsustained vtach, UTI, high ammonia levels, multi ascities with paracentesis, Last Myocardial Infarction Date:: unk History of Any Multi-Drug Resistant Organisms: MRSA, VRE Date of last positivie culture/infection: 07/22/19- VRE; 11/10/19-MRSA MDRO Source:: Urine VRE/ SPUTUM MRSA Past Surgical History: Appendectomy, Bowel Resection, Section, Cholecystectomy, Hysterectomy, Tonsillectomy Additional Past Surgical History / Comment(s): Chemo immobilizations, liver biopsies, paracentesis, bowel resection d/t diverticulitis/ileostomy, R rotator cuff repair, carpal tunnel release-laterality unknown, multi paracentesis, Past Anesthesia/Blood Transfusion Reactions: No Reported Reaction Past Psychological History: Anxiety, Depression Smoking Status: Former smoker Past Alcohol Use History: None Reported Past Drug Use History: None Reported - Past Family History Mother History Unknown: Yes Family Medical History: Congestive Heart Failure (CHF) Additional Family Medical History / Comment(s): Mother is 94 yrs old. Father Family Medical History: Chest Pain / Angina Additional Family Medical History / Comment(s): Father is . General Exam Limitations: no limitations General appearance: alert, in no apparent distress, anxious Head exam: Present: atraumatic, normocephalic, normal inspection Eye exam: Present: normal appearance, PERRL, EOMI. Absent: scleral icterus, conjunctival injection, periorbital swelling ENT exam: Present: normal exam, mucous membranes moist Neck exam: Present: normal inspection. Absent: tenderness, meningismus, lymphadenopathy Respiratory exam: Present: normal lung sounds bilaterally. Absent: respiratory distress, wheezes, rales, rhonchi, stridor Cardiovascular Exam: Present: regular rate, normal rhythm, normal heart sounds. Absent: systolic murmur, diastolic murmur, rubs, gallop, clicks GI/Abdominal exam: Present: distended, tenderness, guarding, normal bowel sounds. Absent: rebound, rigid Extremities exam: Present: normal inspection, full ROM, normal capillary refill. Absent: tenderness, pedal edema, joint swelling, calf tenderness Back exam: Present: normal inspection Neurological exam: Present: alert, oriented X3, CN II-XII intact Psychiatric exam: Present: normal affect, normal mood Skin exam: Present: warm, dry, intact, normal color. Absent: rash Course Vital Signs 03/08/20 03/08/20 03/09/20 21:48 23:01 00:19 Temperature 99.9 F H Pulse Rate 82 65 65 Respiratory 18 16 16 Rate Blood Pressure 123/79 99/45 101/49 O2 Sat by Pulse 98 97 98 Oximetry 03/09/20 01:19 Temperature 98.2 F Pulse Rate 68 Respiratory 16 Rate Blood Pressure 105/53 O2 Sat by Pulse 98 Oximetry - Reevaluation(s) Reevaluation #1: Medical records reviewed Patient's pain is unable to be controlled - Consultations Consultation #1: Spoke with sound were agreeable to admit Medical Decision Making - Medical Decision Making 74 female female to the ER for evaluation patient for intractable pain. Will admit for pain control, elevated ammonia, liver CA - Lab Data Result diagrams: 03/14/20 06:33 03/14/20 06:33 Lab Results 03/08/20 03/08/20 03/08/20 Range/Units 22:10 22:10 22:10 WBC 5.5 (3.8-10.6) k/uL RBC 3.46 L (3.80-5.40) m/uL Hgb 12.1 (11.4-16.0) gm/dL Hct 36.5 (34.0-46.0) % MCV 105.6 H (80.0-100.0) fL MCH 34.9 (25.0-35.0) pg MCHC 33.1 (31.0-37.0) g/dL RDW 15.1 (11.5-15.5) % Plt Count 91 L (150-450) k/uL Neutrophils % 72 % Lymphocytes % 17 % Monocytes % 6 % Eosinophils % 3 % Basophils % 0 % Neutrophils # 3.9 (1.3-7.7) k/uL Lymphocytes # 0.9 L (1.0-4.8) k/uL Monocytes # 0.3 (0-1.0) k/uL Eosinophils # 0.2 (0-0.7) k/uL Basophils # 0.0 (0-0.2) k/uL Manual Slide Review Performed Macrocytosis Moderate Sodium 133 L (137-145) mmol/L Potassium 3.7 (3.5-5.1) mmol/L Chloride 104 (98-107) mmol/L Carbon Dioxide 20 L (22-30) mmol/L Anion Gap 9 mmol/L BUN 28 H (7-17) mg/dL Creatinine 1.49 H (0.52-1.04) mg/dL Est GFR (CKD-EPI)AfAm 40 (>60 ml/min/1.73 sqM) Est GFR (CKD-EPI)NonAf 35 (>60 ml/min/1.73 sqM) Glucose 142 H (74-99) mg/dL Plasma Lactic Acid Carlos 1.9 (0.7-2.0) mmol/L Calcium 8.4 (8.4-10.2) mg/dL Total Bilirubin 2.1 H (0.2-1.3) mg/dL AST 100 H (14-36) U/L ALT 54 H (4-34) U/L Alkaline Phosphatase 375 H (38-126) U/L Ammonia 414 H (<30) umol/L Creatine Kinase 385 H (30-135) U/L Troponin I (0.000-0.034) ng/mL Total Protein 6.4 (6.3-8.2) g/dL Albumin 2.7 L (3.5-5.0) g/dL Amylase 49 (30-110) U/L Lipase 36 (23-300) U/L Urine Color Urine Appearance (Clear) Urine pH (5.0-8.0) Ur Specific [place] (1.001-1.035) Urine Protein (Negative) Urine Glucose (UA) (Negative) Urine Ketones (Negative) Urine Blood (Negative) Urine Nitrite (Negative) Urine Bilirubin (Negative) Urine Urobilinogen (<2.0) mg/dL Ur Leukocyte Esterase (Negative) Urine RBC (0-5) /hpf Urine WBC (0-5) /hpf Ur Squamous Epith Cells (0-4) /hpf Urine Bacteria (None) /hpf Hyaline Casts (0-2) /lpf Urine Mucus (None) /hpf Coronavirus (PCR) (Not Detectd) 03/08/20 03/08/20 03/09/20 Range/Units 22:10 22:35 00:15 WBC (3.8-10.6) k/uL RBC (3.80-5.40) m/uL Hgb (11.4-16.0) gm/dL Hct (34.0-46.0) % MCV (80.0-100.0) fL MCH (25.0-35.0) pg MCHC (31.0-37.0) g/dL RDW (11.5-15.5) % Plt Count (150-450) k/uL Neutrophils % % Lymphocytes % % Monocytes % % Eosinophils % % Basophils % % Neutrophils # (1.3-7.7) k/uL Lymphocytes # (1.0-4.8) k/uL Monocytes # (0-1.0) k/uL Eosinophils # (0-0.7) k/uL Basophils # (0-0.2) k/uL Manual Slide Review Macrocytosis Sodium (137-145) mmol/L Potassium (3.5-5.1) mmol/L Chloride (98-107) mmol/L Carbon Dioxide (22-30) mmol/L Anion Gap mmol/L BUN (7-17) mg/dL Creatinine (0.52-1.04) mg/dL Est GFR (CKD-EPI)AfAm (>60 ml/min/1.73 sqM) Est GFR (CKD-EPI)NonAf (>60 ml/min/1.73 sqM) Glucose (74-99) mg/dL Plasma Lactic Acid Carlos (0.7-2.0) mmol/L Calcium (8.4-10.2) mg/dL Total Bilirubin (0.2-1.3) mg/dL AST (14-36) U/L ALT (4-34) U/L Alkaline Phosphatase (38-126) U/L Ammonia (<30) umol/L Creatine Kinase (30-135) U/L Troponin I 0.152 H* (0.000-0.034) ng/mL Total Protein (6.3-8.2) g/dL Albumin (3.5-5.0) g/dL Amylase (30-110) U/L Lipase (23-300) U/L Urine Color Yellow Urine Appearance Clear (Clear) Urine pH 6.0 (5.0-8.0) Ur Specific [place] 1.011 (1.001-1.035) Urine Protein Negative (Negative) Urine Glucose (UA) Negative (Negative) Urine Ketones Negative (Negative) Urine Blood Negative (Negative) Urine Nitrite Negative (Negative) Urine Bilirubin Negative (Negative) Urine Urobilinogen <2.0 (<2.0) mg/dL Ur Leukocyte Esterase Moderate H (Negative) Urine RBC 10 H (0-5) /hpf Urine WBC 3 (0-5) /hpf Ur Squamous Epith Cells 7 H (0-4) /hpf Urine Bacteria Rare H (None) /hpf Hyaline Casts 3 H (0-2) /lpf Urine Mucus Rare H (None) /hpf Coronavirus (PCR) Not Detected (Not Detectd) - EKG Data -: EKG Interpreted by Me (EKG shows sinus rhythm of 73, NJ 162, QRS 136, QTC 495) - Radiology Data Radiology results: report reviewed (XR AAS is negative for acute disease), image reviewed Disposition Clinical Impression: Intractable pain, At risk for readmission to hospital, Change in mental status, Intractable abdominal pain, History of liver cancer, Nausea and vomiting, Hyperammonemia Disposition: ADMITTED IP TO THIS HOSP Condition: Good Is patient prescribed a controlled substance at d/c from ED?: No
[2020-03-08 22:20] LABS: Basophils % (A) 0 %; Eosinophils # (A) 0.2 k/uL (0-0.7); Eosinophils % (A) 3 %; HCT 36.5 % (34.0-46.0); HGB 12.1 gm/dL (11.4-16.0); Lymphocytes # (A) 0.9 k/uL (1.0-4.8); Lymphocytes % (A) 17 %; MCH 34.9 pg (25.0-35.0); MCHC 33.1 g/dL (31.0-37.0); MCV 105.6 fL (80.0-100.0); Macrocytosis Moderate; Mean Platelet Volume 10.6; Monocytes # (A) 0.3 k/uL (0-1.0); Monocytes % (A) 6 %; Neutrophils # (A) 3.9 k/uL (1.3-7.7); Neutrophils % (A) 72 %; RBC 3.46 m/uL (3.80-5.40); RDW 15.1 % (11.5-15.5); WBC 5.5 k/uL (3.8-10.6)
[2020-03-08 22:25] LABS: Lactic Acid, Venous 1.9 mmol/L (0.7-2.0)
[2020-03-08 22:33] LABS: Platelet Count 91 k/uL (150-450)
[2020-03-08 22:41] LABS: Potassium 3.7 mmol/L (3.5-5.1)
[2020-03-08 22:42] LABS: Albumin 2.7 g/dL (3.5-5.0); Calcium 8.4 mg/dL (8.4-10.2); Total Bilirubin 2.1 mg/dL (0.2-1.3); Total Protein 6.4 g/dL (6.3-8.2)
--- NOTE | 2020-03-08 22:45 | XR ---
EXAMINATION TYPE: XR abdomen acute w cxr DATE OF EXAM: 03/08/2020 COMPARISON: Chest x-ray of 03/02/[address] abdomen pelvis dated 01/25/2020 HISTORY: Chest pain, nausea and vomiting TECHNIQUE: Single frontal view of the chest and upright as well as fine abdominal radiographs were o btained FINDINGS: Cardiomediastinal silhouette is upper limits of normal size is shifted to the left secondar y to patient rotation. No focal consolidation, pleural effusion or pneumothorax. Moderate degenerativ e change of the spine. No pneumoperitoneum is seen on the upright image. Surgical clips are seen in the right para midline a bdomen and right upper quadrant. There is a 4 mm calculus overlying the expected location of the left kidney. Multiple probable phleboliths in the pelvis. Calcification in the right lower quadrant measu ring 7 mm is seen that appears within the gonadal vein on the prior CT. No dilated large or small bow el. Moderate to severe degenerative change of the spine and hips. IMPRESSION: Nonobstructive bowel gas pattern and no acute cardiopulmonary process.
[2020-03-08 22:51] LABS: Appearance,Urine Clear (Clear); Bacteria,Urine Rare /hpf; Bilirubin,Urine Negative (Negative); Blood,Urine Negative (Negative); Color,Urine Yellow; Glucose,Urine (UA) Negative (Negative); Hyaline Casts,Urine 3 /lpf (0-2); Ketones,Urine Negative (Negative); Leukocyte Esterase,Urine Moderate (Negative); Mucus,Urine Rare /hpf; Nitrite,Urine Negative (Negative); Protein,Urine Negative (Negative); RBC,Urine 10 /hpf (0-5); Specific Gravity,Urine 1.011 (1.001-1.035); Squamous Epithelial Cell,Urine 7 /hpf (0-4); Urobilinogen,Urine <2.0 mg/dL (<2.0); WBC,Urine 3 /hpf (0-5)
[2020-03-09] MEDS ORDERED: SODIUM CHLORIDE 0.9% 1,000 ML IV ONE (00:18)
[2020-03-09] MEDS ORDERED: ONDANSETRON 4 MG/2 ML VIAL IVP PRN (00:19)
[2020-03-09] MEDS ORDERED: PANTOPRAZOLE 40 MG/10 ML VIAL IVP STA (00:19)
[2020-03-09] MEDS ORDERED: MORPHINE SULFATE 4 MG/ML SYRINGE IVP PRN (00:19)
[2020-03-09] MEDS ORDERED: clonazePAM 0.5 MG TAB PO PRN (04:25)
[2020-03-09] MEDS ORDERED: NALOXONE 0.4 MG/ML 1 ML VIAL IV PRN (04:29)
--- NOTE | 2020-03-09 04:32 | P.HPIM ---
History of Present Illness H&P Date: 03/09/20 Patient is a 74-year-old female with a PMH of hepatocellular carcinoma in remission, nonalcoholic steatohepatitis, recurrent ascites, recurrent episodes of hepatic encephalopathy, CK stage III, type II DM who presented to the ED with complaints of intractable nausea and vomiting, with intermittent diffuse abdominal pain ongoing for the past few days. Patient reports that due to her nausea and vomiting, she has been unable to eat or drink much, and has been feeling really weak. She reported that her abdominal pain is diffuse, 8 out of 10, occurs intermittently, lasting for a few minutes at a time, with no clear alleviating or exacerbating features. She reports that the pain however resolv ed upon presentation to the ED. She also reported feeling fatigued due to her poor oral intake though denied any additional complaints. Denied fever, chills, chest pain, shortness of breath, or diarrhea. She also denied cough, or sore throat. In the the ED, she had a low-grade fever of 99.9, pulse 82, BP 123/79, and was saturating 98 percent on room air. She underwent an extensive evaluation with abdominal films that were unremarkable, and an EKG that showed sinus rhythm with sinus arrhythmia at 73 bpm with left axis deviation and LVH. Laboratory evaluation revealed WBC count of 5.5, and 1112.1, platelets 91, sodium 133, potassium 3.7, CO2 40, BUN 28, creatinine 1.49, troponin 0.152, AST 100, ALT 54, alk phos 375, ammonia 414, and CK 385. The patient is being admitted to the medicine service for further management of intractable nausea and vomiting. Review of Systems Pertinent positives and negatives as discussed in HPI, a complete review of systems was performed and all other systems are negative. Past Medical History Past Medical History: Cancer, Diabetes Mellitus, Hypertension, Liver Disease, Myocardial Infarction (NM), Renal Disease Additional Past Medical History / Comment(s): Hepatocellular liver cancer with chemo immobilization-last time being 2017, nonalcoholic liver cirrhosis, chronic pancytopenia, chronic elevated ammonia levels, hepatic encephalopathy, chronic elevated LFTs, chronic abdominal pain, stomach ulcer, diverticular disease with ileostomy, IDDM type II, iron anemia, CKD stage III, nonsustained vtach, UTI, high ammonia levels, multi ascities with paracentesis, Last Myocardial Infarction Date:: unk History of Any Multi-Drug Resistant Organisms: MRSA, VRE Date of last positivie culture/infection: 07/22/19- VRE; 11/10/19-MRSA MDRO Source:: Urine VRE/ SPUTUM MRSA Past Surgical History: Appendectomy, Bowel Resection, Section, Cholecystectomy, Hysterectomy, Tonsillectomy Additional Past Surgical History / Comment(s): Chemo immobilizations, liver biopsies, paracentesis, bowel resection d/t diverticulitis/ileostomy, R rotator cuff repair, carpal tunnel release-laterality unknown, multi paracentesis, Past Anesthesia/Blood Transfusion Reactions: No Reported Reaction Past Psychological History: Anxiety, Depression Smoking Status: Former smoker Past Alcohol Use History: None Reported Past Drug Use History: None Reported - Past Family History Mother History Unknown: Yes Family Medical History: Congestive Heart Failure (CHF) Additional Family Medical History / Comment(s): Mother is 94 yrs old. Father Family Medical History: Chest Pain / Angina Additional Family Medical History / Comment(s): Father is . Medications and Allergies Home Medications Medication Instructions Recorded Confirmed Type Sucralfate [Carafate] 1 gm PO QID 10/23/18 03/08/20 History Cholecalciferol [Vitamin D3 (25 4,000 unit PO DAILY 01/16/19 03/08/20 History Mcg = 1000 Iu)] Ferrous Sulfate [Iron (65 MG 325 mg PO BID 01/31/19 03/08/20 History Elemental)] buPROPion HCL [Wellbutrin SR] 150 mg PO DAILY 06/12/19 03/08/20 History clonazePAM [KlonoPIN] 0.5 mg PO BID PRN 06/12/19 03/08/20 History Torsemide [Demadex] 20 mg PO DAILY tab 11/21/19 03/08/20 Rx Isosorbide Mononitrate ER [Imdur] 30 mg PO DAILY@0800 11/25/19 03/08/20 History Spironolactone [Aldactone] 25 mg PO DAILY 11/25/19 03/08/20 History Dicyclomine [Bentyl] 20 mg PO QID 01/04/20 03/08/20 History Morphine Sulfate ER [Ms Contin] 30 mg PO Q12HR 01/04/20 03/08/20 History Morphine Sulfate Ir [MSIR] 15 mg PO Q8H PRN 01/04/20 03/08/20 History Metoprolol Tartrate [Lopressor] 6.25 mg PO DAILY 02/03/20 03/08/20 History Omeprazole Magnesium [PriLOSEC OTC] 20 mg PO BID 02/03/20 03/08/20 History Ondansetron Odt [Zofran ODT] 8 mg PO DAILY 02/03/20 03/08/20 History Insulin NPH Human Isophane 15 unit SQ BID #0 03/05/20 03/08/20 Rx [humuLIN N] Insulin Regular, Human [NovoLIN R] 8 unit SQ AC-TID #0 03/05/20 03/08/20 Rx Lactulose [Cephulac] 30 gm PO TID #1000 ml 03/05/20 03/08/20 Rx Rifaximin [Xifaxan] 550 mg PO BID #60 tablet 03/05/20 03/08/20 Rx Allergies Allergy/AdvReac Type Severity Reaction Status Date / Time amlodipine Allergy Rash/Hives Verified 03/08/20 22:55 oxycodone Allergy Rash/Hives Verified 03/08/20 22:55 Penicillins Allergy Rash/Hives Verified 03/08/20 22:55 hydromorphone [From Dilaudid] AdvReac Mild tactile Verified 03/08/20 22:55 disturbance GREG Inhibitors AdvReac Cough Verified 03/08/20 22:55 sodium dodecyclbenzene Allergy Rash/Hives Uncoded 03/04/20 12:14 sulfonate Physical Exam Vitals: Vital Signs Temp Pulse Resp BP Pulse Ox 03/09/20 01:19 98.2 F 68 16 105/53 98 03/09/20 00:19 65 16 101/49 98 03/08/20 23:01 65 16 99/45 97 03/08/20 21:48 99.9 F H 82 18 123/79 98 Intake and Output 03/08/20 03/08/20 03/09/20 14:59 22:59 06:59 Other: Weight 90.718 kg General: Elderly F, chronically ill-appearing, no distress, appears at stated age, normal weight Derm: Bilateral diffuse upper arm ecchymoses with thin skin, warm, dry Head: atraumatic, normocephalic, symmetric Eyes: EOMI, no lid lag, scleral icterus, pupils equal round reactive to light ENT: Nose and ears atraumatic, no thrush, no pharyngeal erythema Neck: No thyromegaly, no cervical lymphadenopathy, trachea midline, supple Mouth: no lip lesion, mucus membranes moist Cardiovascular: S1S2 reg, systolic murmur appreciated, positive posterior tibial pulse bilateral, bilateral 1+ lower extremity pitting edema, capillary refill less than 2 seconds Lungs: CTA bilateral, no rhonchi, no rales , no accessory muscle use Abdominal: soft, nontender to palpation, no guarding, no appreciable o rganomegaly, normal bowel sounds Ext: no gross muscle atrophy, muscle strength 4 out of 5 in all 4 extremities grossly, no contractures, Neuro: CN II-XI grossly intact, light touch intact all 4 extremities, finger to nose within normal limits, asterixis present Psych: Alert, oriented, appropriate affect Results CBC & Chem 7: 03/08/20 22:10 03/08/20 22:10 Labs: Abnormal Lab Results - Last 24 Hours (Table) 03/08/20 03/08/20 03/08/20 Range/Units 22:10 22:10 22:10 RBC 3.46 L (3.80-5.40) m/uL MCV 105.6 H (80.0-100.0) fL Plt Count 91 L (150-450) k/uL Lymphocytes # 0.9 L (1.0-4.8) k/uL Sodium 133 L (137-145) mmol/L Carbon Dioxide 20 L (22-30) mmol/L BUN 28 H (7-17) mg/dL Creatinine 1.49 H (0.52-1.04) mg/dL Glucose 142 H (74-99) mg/dL Total Bilirubin 2.1 H (0.2-1.3) mg/dL AST 100 H (14-36) U/L ALT 54 H (4-34) U/L Alkaline Phosphatase 375 H (38-126) U/L Ammonia 414 H (<30) umol/L Creatine Kinase 385 H (30-135) U/L Troponin I (0.000-0.034) ng/mL Albumin 2.7 L (3.5-5.0) g/dL Ur Leukocyte Esterase (Negative) Urine RBC (0-5) /hpf Ur Squamous Epith Cells (0-4) /hpf Urine Bacteria (None) /hpf Hyaline Casts (0-2) /lpf Urine Mucus (None) /hpf 03/08/20 03/08/20 Range/Units 22:10 22:35 RBC (3.80-5.40) m/uL MCV (80.0-100.0) fL Plt Count (150-450) k/uL Lymphocytes # (1.0-4.8) k/uL Sodium (137-145) mmol/L Carbon Dioxide (22-30) mmol/L BUN (7-17) mg/dL Creatinine (0.52-1.04) mg/dL Glucose (74-99) mg/dL Total Bilirubin (0.2-1.3) mg/dL AST (14-36) U/L ALT (4-34) U/L Alkaline Phosphatase (38-126) U/L Ammonia (<30) umol/L Creatine Kinase (30-135) U/L Troponin I 0.152 H* (0.000-0.034) ng/mL Albumin (3.5-5.0) g/dL Ur Leukocyte Esterase Moderate H (Negative) Urine RBC 10 H (0-5) /hpf Ur Squamous Epith Cells 7 H (0-4) /hpf Urine Bacteria Rare H (None) /hpf Hyaline Casts 3 H (0-2) /lpf Urine Mucus Rare H (None) /hpf Assessment and Plan Plan: Intractable nausea and vomiting in setting of cirrhosis from nonalcoholic steatohepatitis with concerns for SBP -Antiemetics -Start patient on ceftriaxone -Consider diagnostic paracentesis -Continue with diuretics: Aldactone, torsemide -GI consult Hepatic encephalopathy -Despite significantly elevated ammonia and asterixis, the patient continues to remain oriented 3 -Continue with lactulose Elevated troponin -Patient denying chest pain or shortness of breath -At baseline -Cardiac monitoring Thrombocytopenia, at baseline -Monitor CBC for now Type II DM -Insulin sliding scale with blood glucose monitoring -Will resume home Insulin N and R at decreased doses CKD stage III -Similar to baseline -Monitor BMP Hepatocellular carcinoma status post chemotherapy -Follow with outpatient oncology DVT prophylaxis -IPCDs The patient is admitted with an anticipated less than 2 midnight stay for evaluation of nausea and vomiting CODE STATUS: Full Code Discussed with: Patient Anticipated discharge date: 1-[address]: Home A total of 40 minutes was spent on the care of this complex patient more than 50% of the time was spent in counseling and care coordination.
[2020-03-09 07:49] LABS: Glucose,Whole Blood 130 mg/dL (75-99)
[2020-03-09] MEDS: INSULIN ASPART (NovoLOG) 100 UNIT/ML VIAL SQ SCH ×3 (08:22→17:44)
[2020-03-09] MEDS: INSULIN REGULAR 100 UNIT/ML VIAL SQ SCH ×3 (08:23→17:46)
[2020-03-09 08:57] LABS: HCT 31.4 % (34.0-46.0); HGB 10.5 gm/dL (11.4-16.0); MCH 35.1 pg (25.0-35.0); MCHC 33.5 g/dL (31.0-37.0); MCV 104.9 fL (80.0-100.0); Macrocytosis Moderate; RBC 2.99 m/uL (3.80-5.40); WBC 5.1 k/uL (3.8-10.6)
[2020-03-09] MEDS ORDERED: LACTULOSE 20 GM/30 ML CUP PO SCH (09:00)
[2020-03-09] MEDS ORDERED: INSULIN NPH 300 UNIT/3 ML VIAL SQ SCH (09:00)
[2020-03-09 09:02] LABS: Platelet Count 87 k/uL (150-450)
[2020-03-09 09:07] LABS: Albumin 2.1 g/dL (3.5-5.0); Calcium 7.9 mg/dL (8.4-10.2); Potassium 3.7 mmol/L (3.5-5.1); Total Protein 5.6 g/dL (6.3-8.2)
[2020-03-09] MEDS: SPIRONOLACTONE 25 MG TAB PO SCH (11:17)
[2020-03-09] MEDS: RIFAXIMIN 550 MG TABLET PO SCH ×2 (11:17→21:13)
[2020-03-09] MEDS: METOPROLOL TARTRATE 25 MG TAB PO SCH (11:17)
[2020-03-09] MEDS: SUCRALFATE 1 GM TAB PO SCH ×4 (11:17→21:04)
[2020-03-09] MEDS: TORSEMIDE 20 MG TAB PO SCH (11:17)
[2020-03-09] MEDS: DICYCLOMINE 20 MG TAB PO SCH ×4 (11:20→21:04)
[2020-03-09] MEDS: PANTOPRAZOLE 40 MG/10 ML VIAL IVP SCH (11:20)
[2020-03-09 11:27] LABS: Glucose,Whole Blood 107 mg/dL (75-99)
[2020-03-09 16:59] LABS: Glucose,Whole Blood 143 mg/dL (75-99)
[2020-03-09] MEDS: LACTULOSE 20 GM/30 ML CUP PO SCH ×2 (17:44→22:53)
[2020-03-09] MEDS ORDERED: ACETAMINOPHEN TAB 325 MG TAB PO PRN (17:54)
--- NOTE | 2020-03-09 17:58 | P.PN ---
Subjective Progress Note Date: 03/09/20 (delayed charting seen at 0930) Principal diagnosis: confusion Patient is a 74-year-old female with hepatocellular carcinoma with enlargement of mass in November 2019 who is still having difficulty coordinating follow-up, nonalcoholic steatohepatitis poorly controlled with multiple hospitalizations for hepatic encephalopathy and ascites, chronic kidney disease stage III, and diabetes mellitus type 2 insulin requiring who presented to the emergency department with intractable nausea, vomiting, and abdominal pain. On arrival to the ER she had a mild temperature at 99.9. Laboratory analysis showed known thrombocytopenia, no chronic creatinine elevation, elevated liver enzymes, chronically elevated troponin, and extremely elevated ammonia level of 414. Urinalysis was negative. Covid 19 negative. She was given multiple doses of morphine and Ativan in the ER. She was given 1 dose of ceftriaxone. She was admitted for further monitoring. Patient seen and examined at bedside. She is more lethargic today than normal. At this point in time she denies nausea, vomiting, and belly pain. She denies any diarrhea. She admits that she has not been taking her lactulose or medications at home. Objective - Vital Signs Vital signs: Vital Signs Temp 98.1 F 03/09/20 12:00 Pulse 62 03/09/20 12:00 Resp 12 03/09/20 12:00 BP 120/58 03/09/20 12:00 Pulse Ox 97 03/09/20 12:00 Intake & Output 03/08/20 03/09/20 03/09/20 18:59 06:59 18:59 Output Total 301 Balance -301 Weight 90.718 kg Output: Urine 1 Stool 300 Other: # Voids 1 # Bowel Movements 1 - Exam General: Chronically ill-appearing, no distress, appears older than stated age Derm: Multiple areas of ecchymoses warm, dry Head: atraumatic, normocephalic, symmetric Eyes: EOMI, no lid lag, anicteric sclera Mouth: no lip lesion, mucus membranes moist Cardiovascular: S1S2 reg, no murmur, positive posterior tibial pulse bilateral, Lungs: CTA bilateral, no rhonchi, no rales , no accessory muscle use Abdominal: soft, nontender to palpation, no guarding, no appreciable organomegaly Ext: no gross muscle atrophy, no edema, no contractures Neuro: CN II-XI grossly intact, no focal neuro deficits Psych: Lethargic, appropriate affect - Labs CBC & Chem 7: 03/09/20 08:38 03/09/20 08:38 Labs: Abnormal Lab Results - Last 24 Hours (Table) 03/08/20 03/08/20 03/08/20 Range/Units 22:10 22:10 22:10 RBC 3.46 L (3.80-5.40) m/uL Hgb (11.4-16.0) gm/dL Hct (34.0-46.0) % MCV 105.6 H (80.0-100.0) fL MCH (25.0-35.0) pg Plt Count 91 L (150-450) k/uL Lymphocytes # 0.9 L (1.0-4.8) k/uL Sodium 133 L (137-145) mmol/L Chloride (98-107) mmol/L Carbon Dioxide 20 L (22-30) mmol/L BUN 28 H (7-17) mg/dL Creatinine 1.49 H (0.52-1.04) mg/dL Glucose 142 H (74-99) mg/dL POC Glucose (mg/dL) (75-99) mg/dL Calcium (8.4-10.2) mg/dL Total Bilirubin 2.1 H (0.2-1.3) mg/dL AST 100 H (14-36) U/L ALT 54 H (4-34) U/L Alkaline Phosphatase 375 H (38-126) U/L Ammonia 414 H (<30) umol/L Creatine Kinase 385 H (30-135) U/L Troponin I (0.000-0.034) ng/mL Total Protein (6.3-8.2) g/dL Albumin 2.7 L (3.5-5.0) g/dL Ur Leukocyte Esterase (Negative) Urine RBC (0-5) /hpf Ur Squamous Epith Cells (0-4) /hpf Urine Bacteria (None) /hpf Hyaline Casts (0-2) /lpf Urine Mucus (None) /hpf 03/08/20 03/08/20 03/09/20 Range/Units 22:10 22:35 07:41 RBC (3.80-5.40) m/uL Hgb (11.4-16.0) gm/dL Hct (34.0-46.0) % MCV (80.0-100.0) fL MCH (25.0-35.0) pg Plt Count (150-450) k/uL Lymphocytes # (1.0-4.8) k/uL Sodium (137-145) mmol/L Chloride (98-107) mmol/L Carbon Dioxide (22-30) mmol/L BUN (7-17) mg/dL Creatinine (0.52-1.04) mg/dL Glucose (74-99) mg/dL POC Glucose (mg/dL) 130 H (75-99) mg/dL Calcium (8.4-10.2) mg/dL Total Bilirubin (0.2-1.3) mg/dL AST (14-36) U/L ALT (4-34) U/L Alkaline Phosphatase (38-126) U/L Ammonia (<30) umol/L Creatine Kinase (30-135) U/L Troponin I 0.152 H* (0.000-0.034) ng/mL Total Protein (6.3-8.2) g/dL Albumin (3.5-5.0) g/dL Ur Leukocyte Esterase Moderate H (Negative) Urine RBC 10 H (0-5) /hpf Ur Squamous Epith Cells 7 H (0-4) /hpf Urine Bacteria Rare H (None) /hpf Hyaline Casts 3 H (0-2) /lpf Urine Mucus Rare H (None) /hpf 03/09/20 03/09/20 03/09/20 Range/Units 08:38 08:38 08:38 RBC 2.99 L (3.80-5.40) m/uL Hgb 10.5 L (11.4-16.0) gm/dL Hct 31.4 L (34.0-46.0) % MCV 104.9 H (80.0-100.0) fL MCH 35.1 H (25.0-35.0) pg Plt Count 87 L (150-450) k/uL Lymphocytes # (1.0-4.8) k/uL Sodium 135 L (137-145) mmol/L Chloride 111 H (98-107) mmol/L Carbon Dioxide 21 L (22-30) mmol/L BUN 26 H (7-17) mg/dL Creatinine 1.34 H (0.52-1.04) mg/dL Glucose 119 H (74-99) mg/dL POC Glucose (mg/dL) (75-99) mg/dL Calcium 7.9 L (8.4-10.2) mg/dL Total Bilirubin 2.0 H (0.2-1.3) mg/dL AST 78 H (14-36) U/L ALT 44 H (4-34) U/L Alkaline Phosphatase 288 H (38-126) U/L Ammonia 222 H (<30) umol/L Creatine Kinase (30-135) U/L Troponin I (0.000-0.034) ng/mL Total Protein 5.6 L (6.3-8.2) g/dL Albumin 2.1 L (3.5-5.0) g/dL Ur Leukocyte Esterase (Negative) Urine RBC (0-5) /hpf Ur Squamous Epith Cells (0-4) /hpf Urine Bacteria (None) /hpf Hyaline Casts (0-2) /lpf Urine Mucus (None) /hpf 03/09/20 03/09/20 Range/Units 10:54 16:57 RBC (3.80-5.40) m/uL Hgb (11.4-16.0) gm/dL Hct (34.0-46.0) % MCV (80.0-100.0) fL MCH (25.0-35.0) pg Plt Count (150-450) k/uL Lymphocytes # (1.0-4.8) k/uL Sodium (137-145) mmol/L Chloride (98-107) mmol/L Carbon Dioxide (22-30) mmol/L BUN (7-17) mg/dL Creatinine (0.52-1.04) mg/dL Glucose (74-99) mg/dL POC Glucose (mg/dL) 107 H 143 H (75-99) mg/dL Calcium (8.4-10.2) mg/dL Total Bilirubin (0.2-1.3) mg/dL AST (14-36) U/L ALT (4-34) U/L Alkaline Phosphatase (38-126) U/L Ammonia (<30) umol/L Creatine Kinase (30-135) U/L Troponin I (0.000-0.034) ng/mL Total Protein (6.3-8.2) g/dL Albumin (3.5-5.0) g/dL Ur Leukocyte Esterase (Negative) Urine RBC (0-5) /hpf Ur Squamous Epith Cells (0-4) /hpf Urine Bacteria (None) /hpf Hyaline Casts (0-2) /lpf Urine Mucus (None) /hpf Assessment and Plan Assessment: Hepatic encephalopathy with known cirrhosis -Resume lactulose and rifaximin (patient is unable to afford this insurance will cover) -Resume home torsemide and Aldactone -GI recommendations -Clinically doubt SBP as she has already received treatment for this since last paracentesis -Continue with palliative care - all oral pain meidcations on hold Hepatocellular carcinoma status post chemo embolization - Increasing size of liver mass noted in November 2019 -Follow up with her outpatient oncologist, states is supposed to be starting a pill Chronically elevated troponin -No need for recheck -At baseline -Follow telemetry Diabetes mellitus type 2 -Blood sugars have been controlled without requiring insulin -Follow blood sugars -A1c 5.1 Chronic pain - hold bridgette meds - morphine as needed Thrombocytopenia, secondary sclerosis -At baseline -Follow CBC Chronic kidney disease stage III -Appears at baseline -Continue with diuretics and-follow creatinine Intractable nausea and vomiting, resolved DVT prophylaxis: SCDs Discussed with: Patient, nursing, Dr Francois Anticipated discharge date: 2-[address]: [facility] A total of 45 minutes was spent on the care of this complex patient more than 50% of the time was spent in counseling and care coordination.
[2020-03-09] MEDS: INSULIN NPH 300 UNIT/3 ML VIAL SQ SCH (21:10)
[2020-03-09 21:12] LABS: Glucose,Whole Blood 114 mg/dL (75-99)
[2020-03-09] MEDS ORDERED: MORPHINE SULFATE 2 MG/ML SYRINGE IVP STA (22:48)
[2020-03-10] MEDS ORDERED: MORPHINE SULFATE 2 MG/ML SYRINGE IVP STA (03:04)
[2020-03-10] MEDS: LACTULOSE 20 GM/30 ML CUP PO SCH ×4 (05:42→22:08)
[2020-03-10] MEDS ORDERED: HYDROmorphone 0.5 MG/0.5 ML SYRINGE IVP STA (06:30)
[2020-03-10 06:51] LABS: HCT 33.8 % (34.0-46.0); HGB 11.6 gm/dL (11.4-16.0); MCH 35.3 pg (25.0-35.0); MCHC 34.3 g/dL (31.0-37.0); MCV 102.9 fL (80.0-100.0); Macrocytosis Slight; Mean Platelet Volume 9.6; RBC 3.29 m/uL (3.80-5.40); RDW 15.6 % (11.5-15.5); WBC 5.1 k/uL (3.8-10.6)
[2020-03-10 06:56] LABS: Platelet Count 92 k/uL (150-450)
[2020-03-10 06:59] LABS: Albumin 2.4 g/dL (3.5-5.0); Calcium 8.3 mg/dL (8.4-10.2); Magnesium 1.5 mg/dL (1.6-2.3); Potassium 3.1 mmol/L (3.5-5.1); Total Bilirubin 3.9 mg/dL (0.2-1.3)
[2020-03-10 07:16] LABS: Glucose,Whole Blood 154 mg/dL (75-99)
[2020-03-10] MEDS: INSULIN ASPART (NovoLOG) 100 UNIT/ML VIAL SQ SCH ×3 (07:54→17:44)
[2020-03-10] MEDS: INSULIN REGULAR 100 UNIT/ML VIAL SQ SCH ×3 (07:54→17:44)
[2020-03-10] MEDS: SUCRALFATE 1 GM TAB PO SCH ×4 (07:55→22:08)
[2020-03-10] MEDS: DICYCLOMINE 20 MG TAB PO SCH ×4 (07:55→22:08)
[2020-03-10] MEDS: SPIRONOLACTONE 25 MG TAB PO SCH (07:55)
[2020-03-10] MEDS: RIFAXIMIN 550 MG TABLET PO SCH ×2 (07:55→20:17)
[2020-03-10] MEDS: METOPROLOL TARTRATE 25 MG TAB PO SCH (07:55)
[2020-03-10] MEDS: INSULIN NPH 300 UNIT/3 ML VIAL SQ SCH ×2 (07:55→20:43)
[2020-03-10] MEDS: TORSEMIDE 20 MG TAB PO SCH (07:55)
[2020-03-10] MEDS: PANTOPRAZOLE 40 MG/10 ML VIAL IVP SCH (07:56)
--- NOTE | 2020-03-10 08:41 | P.CONS ---
History of Present Illness - Reason for Consult Consult date: 03/09/20 Decompensated cirrhosis, encephalopathy Requesting physician: Quiana Brown - Chief Complaint Altered mental status - History of Present Illness 74-year-old female with a past medical history significant for hepatocellular carcinoma status post chemoembolization in the past and with recent MRI imaging earlier in the year showing progression of disease, recurrent ascites secondary to decompensated nonalcoholic liver cirrhosis with portal hypertension, hepatic encephalopathy, diverticular disease complicated in the past and requiring surgical intervention with colostomy formation, chronic kidney disease, or abdominal pain who presents back to the hospital after recent admission with complaints of altered mental status and confusion. The patient has previously been seen and discharged earlier in the month due to abdominal distention and pain during which time she was treated with a course of antibiotic therapy for possible SBP and had paracentesis. She has previously been admitted for similar complaints, and on current presentation came to the hospital due to worsening mental status. Patient has a known history of encephalopathy and is not compliant with her home medications. She does not take rifaximin as the cost is prohibitive and does not take lactulose as prescribed. Last EGD was performed in 07/2019 for abdominal pain and significant for gastritis. On current presentation patient was found to have a creatinine of 1.49, AST 100, ALT 54, alkaline phosphatase 375, platelet count of 91,000 and a markedly elevated ammonia level of 414. Review of Systems ROS unobtainable: due to mental status Past Medical History Past Medical History: Cancer, Diabetes Mellitus, Hypertension, Liver Disease, Myocardial Infarction (MO), Renal Disease Additional Past Medical History / Comment(s): Hepatocellular liver cancer with chemo immobilization-last time being 2017, nonalcoholic liver cirrhosis, chronic pancytopenia, chronic elevated ammonia levels, hepatic encephalopathy, chronic elevated LFTs, chronic abdominal pain, stomach ulcer, diverticular disease with ileostomy, IDDM type II, iron anemia, CKD stage III, nonsustained vtach, UTI, h igh ammonia levels, multi ascities with paracentesis, Last Myocardial Infarction Date:: unk History of Any Multi-Drug Resistant Organisms: MRSA, 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; 11/10/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 MDRO Source:: Urine VRE/ SPUTUM MRSA Past Surgical History: Appendectomy, Bowel Resection, Section, Cholecystectomy, Hysterectomy, Tonsillectomy Additional Past Surgical History / Comment(s): Chemo immobilizations, liver biopsies, paracentesis, bowel resection d/t diverticulitis/ileostomy, R rotator cuff repair, carpal tunnel release-laterality unknown, multi paracentesis, Past Anesthesia/Blood Transfusion Reactions: No Reported Reaction Past Psychological History: Anxiety, Depression Smoking Status: Former smoker Past Alcohol Use History: None Reported Past Drug Use History: None Reported - Past Family History Mother History Unknown: Yes Family Medical History: Congestive Heart Failure (CHF) Additional Family Medical History / Comment(s): Mother is 94 yrs old. Father Family Medical History: Chest Pain / Angina Additional Family Medical History / Comment(s): Father is . Medications and Allergies Home Medications Medication Instructions Recorded Confirmed Type Sucralfate [Carafate] 1 gm PO QID 10/23/18 03/08/20 History Cholecalciferol [Vitamin D3 (25 4,000 unit PO DAILY 01/16/19 03/08/20 History Mcg = 1000 Iu)] Ferrous Sulfate [Iron (65 MG 325 mg PO BID 01/31/19 03/08/20 History Elemental)] buPROPion HCL [Wellbutrin SR] 150 mg PO DAILY 06/12/19 03/08/20 History clonazePAM [KlonoPIN] 0.5 mg PO BID PRN 06/12/19 03/08/20 History Torsemide [Demadex] 20 mg PO DAILY tab 11/21/19 03/08/20 Rx Isosorbide Mononitrate ER [Imdur] 30 mg PO DAILY@0800 11/25/19 03/08/20 History Spironolactone [Aldactone] 25 mg PO DAILY 11/25/19 03/08/20 History Dicyclomine [Bentyl] 20 mg PO QID 01/04/20 03/08/20 History Morphine Sulfate ER [Ms Contin] 30 mg PO Q12HR 01/04/20 03/08/20 History Morphine Sulfate Ir [MSIR] 15 mg PO Q8H PRN 01/04/20 03/08/20 History Metoprolol Tartrate [Lopressor] 6.25 mg PO DAILY 02/03/20 03/08/20 History Omeprazole Magnesium [PriLOSEC OTC] 20 mg PO BID 02/03/20 03/08/20 History Ondansetron Odt [Zofran ODT] 8 mg PO DAILY 02/03/20 03/08/20 History Insulin NPH Human Isophane 15 unit SQ BID #0 03/05/20 03/08/20 Rx [humuLIN N] Insulin Regular, Human [NovoLIN R] 8 unit SQ AC-TID #0 03/05/20 03/08/20 Rx Lactulose [Cephulac] 30 gm PO TID #1000 ml 03/05/20 03/08/20 Rx Rifaximin [Xifaxan] 550 mg PO BID #60 tablet 03/05/20 03/08/20 Rx Allergies Allergy/AdvReac Type Severity Reaction Status Date / Time amlodipine Allergy Rash/Hives Verified 03/08/20 22:55 oxycodone Allergy Rash/Hives Verified 03/08/20 22:55 Penicillins Allergy Rash/Hives Verified 03/08/20 22:55 hydromorphone [From Dilaudid] AdvReac Mild tactile Verified 03/08/20 22:55 disturbance GREG Inhibitors AdvReac Cough Verified 03/08/20 22:55 sodium dodecyclbenzene Allergy Rash/Hives Uncoded 03/04/20 12:14 sulfonate Physical Exam Vitals: Vital Signs Temp Pulse Pulse Resp BP BP Pulse Ox 03/09/20 04:20 98 F 69 12 115/59 97 03/09/20 01:41 96.4 F L 68 12 110/53 97 03/09/20 01:19 98.2 F 68 16 105/53 98 03/09/20 00:19 65 16 101/49 98 03/08/20 23:01 65 16 99/45 97 03/08/20 21:48 99.9 F H 82 18 123/79 98 Intake and Output 03/08/20 03/09/20 03/09/20 22:59 06:59 14:59 Other: # Bowel Movements 1 Weight 90.718 kg 90.718 kg On physical examination, patient appears comfortable in no apparent distress. HEAD: Normocephalic, atraumatic. EYES: No scleral icterus. No conjunctival injection. MOUTH: No lesions, tongue midline. NECK: Trachea midline, no gross abnormalities. CHEST: Decreased air entry in all lung simon. HEART: Regular rate and rhythm. ABDOMEN: Soft, obese, with ostomy intact with good output. Nondistended. Bowel sounds are positive. No organomegaly. No guarding or rigidity. EXTREMITIES: Bilateral +1 pedal edema. SKIN: No rashes, no jaundice. NEUROLOGIC: Alert and arousable but not oriented. Asterixis is noted. Results CBC & Chem 7: 03/10/20 06:27 03/10/20 06:27 Labs: Abnormal Lab Results - Last 24 Hours (Table) 03/08/20 03/08/20 03/08/20 Range/Units 22:10 22:10 22:10 RBC 3.46 L (3.80-5.40) m/uL Hgb (11.4-16.0) gm/dL Hct (34.0-46.0) % MCV 105.6 H (80.0-100.0) fL MCH (25.0-35.0) pg Plt Count 91 L (150-450) k/uL Lymphocytes # 0.9 L (1.0-4.8) k/uL Sodium 133 L (137-145) mmol/L Chloride (98-107) mmol/L Carbon Dioxide 20 L (22-30) mmol/L BUN 28 H (7-17) mg/dL Creatinine 1.49 H (0.52-1.04) mg/dL Glucose 142 H (74-99) mg/dL POC Glucose (mg/dL) (75-99) mg/dL Calcium (8.4-10.2) mg/dL Total Bilirubin 2.1 H (0.2-1.3) mg/dL AST 100 H (14-36) U/L ALT 54 H (4-34) U/L Alkaline Phosphatase 375 H (38-126) U/L Ammonia 414 H (<30) umol/L Creatine Kinase 385 H (30-135) U/L Troponin I (0.000-0.034) ng/mL Total Protein (6.3-8.2) g/dL Albumin 2.7 L (3.5-5.0) g/dL Ur Leukocyte Esterase (Negative) Urine RBC (0-5) /hpf Ur Squamous Epith Cells (0-4) /hpf Urine Bacteria (None) /hpf Hyaline Casts (0-2) /lpf Urine Mucus (None) /hpf 03/08/20 03/08/20 03/09/20 Range/Units 22:10 22:35 07:41 RBC (3.80-5.40) m/uL Hgb (11.4-16.0) gm/dL Hct (34.0-46.0) % MCV (80.0-100.0) fL MCH (25.0-35.0) pg Plt Count (150-450) k/uL Lymphocytes # (1.0-4.8) k/uL Sodium (137-145) mmol/L Chloride (98-107) mmol/L Carbon Dioxide (22-30) mmol/L BUN (7-17) mg/dL Creatinine (0.52-1.04) mg/dL Glucose (74-99) mg/dL POC Glucose (mg/dL) 130 H (75-99) mg/dL Calcium (8.4-10.2) mg/dL Total Bilirubin (0.2-1.3) mg/dL AST (14-36) U/L ALT (4-34) U/L Alkaline Phosphatase (38-126) U/L Ammonia (<30) umol/L Creatine Kinase (30-135) U/L Troponin I 0.152 H* (0.000-0.034) ng/mL Total Protein (6.3-8.2) g/dL Albumin (3.5-5.0) g/dL Ur Leukocyte Esterase Moderate H (Negative) Urine RBC 10 H (0-5) /hpf Ur Squamous Epith Cells 7 H (0-4) /hpf Urine Bacteria Rare H (None) /hpf Hyaline Casts 3 H (0-2) /lpf Urine Mucus Rare H (None) /hpf 03/09/20 03/09/20 03/09/20 Range/Units 08:38 08:38 08:38 RBC 2.99 L (3.80-5.40) m/uL Hgb 10.5 L (11.4-16.0) gm/dL Hct 31.4 L (34.0-46.0) % MCV 104.9 H (80.0-100.0) fL MCH 35.1 H (25.0-35.0) pg Plt Count 87 L (150-450) k/uL Lymphocytes # (1.0-4.8) k/uL Sodium 135 L (137-145) mmol/L Chloride 111 H (98-107) mmol/L Carbon Dioxide 21 L (22-30) mmol/L BUN 26 H (7-17) mg/dL Creatinine 1.34 H (0.52-1.04) mg/dL Glucose 119 H (74-99) mg/dL POC Glucose (mg/dL) (75-99) mg/dL Calcium 7.9 L (8.4-10.2) mg/dL Total Bilirubin 2.0 H (0.2-1.3) mg/dL AST 78 H (14-36) U/L ALT 44 H (4-34) U/L Alkaline Phosphatase 288 H (38-126) U/L Ammonia 222 H (<30) umol/L Creatine Kinase (30-135) U/L Troponin I (0.000-0.034) ng/mL Total Protein 5.6 L (6.3-8.2) g/dL Albumin 2.1 L (3.5-5.0) g/dL Ur Leukocyte Esterase (Negative) Urine RBC (0-5) /hpf Ur Squamous Epith Cells (0-4) /hpf Urine Bacteria (None) /hpf Hyaline Casts (0-2) /lpf Urine Mucus (None) /hpf Abdominal x-ray: report reviewed (X-ray of the abdomen with non-obstructive bowel gas pattern.) Assessment and Plan (1) Cirrhosis of liver with ascites Narrative/Plan: 74-year-old female who is presenting to the hospital due to altered mental status, she has frequent admissions both for abdominal distention and ascites as well as encephalopathy in the setting of history of nonalcoholic cirrhosis with ascites and encephalopathy and hepatocellular carcinoma for which she previously underwent treatment, and for which recent imaging earlier in the year showed progression of the disease. On current presentation the patient is found to be encephalopathic with a markedly elevated ammonia level greater than 400. Patient has been unable to afford the rifaximin in the outpatient setting as it causes been prohibitive, but is also noncompliant with lactulose therapy. Current Visit: No Status: Chronic Code(s): K74.60 - UNSPECIFIED CIRRHOSIS OF LIVER; R18.8 - OTHER ASCITES SNOMED Code(s): 14245370 (2) Change in mental status Current Visit: Yes Status: Acute Code(s): R41.82 - ALTERED MENTAL STATUS, UNSPECIFIED SNOMED Code(s): 559385422 (3) Hyperammonemia Current Visit: Yes Status: Acute Code(s): E72.20 - DISORDER OF UREA CYCLE METABOLISM, UNSPECIFIED SNOMED Code(s): 8811776 (4) Chronic liver disease Current Visit: No Status: Acute Code(s): K76.9 - LIVER DISEASE, UNSPECIFIED SNOMED Code(s): 930770858 (5) Hepatic encephalopathy Current Visit: No Status: Acute Code(s): K72.90 - HEPATIC FAILURE, UNSPECIFIED WITHOUT COMA SNOMED Code(s): 93999512 (6) Hepatocellular carcinoma Current Visit: No Status: Chronic Priority: Medium Code(s): C22.0 - LIVER CELL CARCINOMA SNOMED Code(s): 387117220 Plan: Supportive care Nothing by mouth until mental status improved, then patient could be advanced to a low-sodium diet Lactulose 4 times a day ordered, if patient is unable to swallow and have placement of an NG tube to dispense to medication or can be changed to rectal suppository Rifaximin twice a day Continue torsemide and spironolactone for treatment of ascites Continue to monitor clinically Thank you for allowing us to participate in the care of the patient
[2020-03-10] MEDS: MORPHINE SULFATE IR 15 MG TABLET PO PRN ×2 (10:46→22:08)
[2020-03-10] MEDS: MORPHINE SULFATE ER 15 MG TABLET PO SCH ×2 (11:45→20:16)
[2020-03-10 11:50] LABS: Glucose,Whole Blood 106 mg/dL (75-99)
[2020-03-10] MEDS ORDERED: POTASSIUM CHLORIDE ER 20 MEQ TAB.ER PO STA (13:16)
--- NOTE | 2020-03-10 17:01 | P.PN ---
Subjective Progress Note Date: 03/10/20 (Delayed charting seen at 0930) Principal diagnosis: confusion Patient is a 74-year-old female with hepatocellular carcinoma with enlargement of mass in November 2019 who is still having difficulty coordinating follow-up, nonalcoholic steatohepatitis poorly controlled with multiple hospitalizations for hepatic encephalopathy and ascites, chronic kidney disease stage III, and diabetes mellitus type 2 insulin requiring who presented to the emergency department with intractable nausea, vomiting, and abdominal pain. On arrival to the ER she had a mild temperature at 99.9. Laboratory analysis showed known thrombocytopenia, no chronic creatinine elevation, elevated liver enzymes, chronically elevated troponin, and extremely elevated ammonia level of 414. Urinalysis was negative. Covid 19 negative. She was given multiple doses of morphine and Ativan in the ER. She started on Rocephin. She was admitted for further monitoring. Her ammonia level came down with the addition of rifaximin and resumption of her home lactulose dosing. He continued to be significantly weak. She would consider going into a penitentiary. Patient seen and examined at bedside. She believes that she was only taking her lactulose once a day at home but she is unsure, she is having some abdominal pain today, no nausea, no vomiting, no shortness of breath. She is agreeable to going to [facility]. Objective - Vital Signs Vital signs: Vital Signs Temp 98.2 F 03/10/20 12:20 Pulse 72 03/10/20 12:20 Resp 16 03/10/20 12:20 BP 121/55 03/10/20 12:20 Pulse Ox 99 03/10/20 12:20 Intake & Output 03/09/20 03/10/20 03/10/20 18:59 06:59 18:59 Intake Total 350 650 Output Total 301 1500 Balance -301 350 -850 Intake: Intake, IV Titration 350 50 Amount Sodium Chloride 0.9% 1, 350 000 ml @ 100 mls/hr IV . Q10H ONE Rx#:[id number] cefTRIAXone 1 gm In 50 Sodium Chloride 0.9% 50 ml @ 100 mls/hr IVPB Q24HR JENNY Rx#:[id number] Oral 600 Output: Urine 1 Stool 300 1500 Other: Voiding Method Bedside Commode Bedside Commode # Voids 1 3 1 # Bowel Movements 1 2 - Exam General: Chronically ill-appearing, no distress, appears older than stated age Derm: Multiple areas of ecchymoses warm, dry Head: atraumatic, normocephalic, symmetric Eyes: EOMI, no lid lag, anicteric sclera Mouth: no lip lesion, mucus membranes moist Cardiovascular: S1S2 reg, no murmur, positive posterior tibial pulse bilateral, Lungs: Decreased bs bilateral, no rhonchi, no rales , no accessory muscle use Abdominal: soft, + tender to palpation diffusely, no guarding, no appreciable organomegaly Ext: no gross muscle atrophy, no edema, no contractures Neuro: CN II-XI grossly intact, no focal neuro deficits Psych: Lethargic, appropriate affect - Labs CBC & Chem 7: 03/10/20 06:27 03/10/20 06:27 Labs: Abnormal Lab Results - Last 24 Hours (Table) 03/09/20 03/09/20 03/10/20 Range/Units 16:57 21:08 06:27 RBC (3.80-5.40) m/uL Hct (34.0-46.0) % MCV (80.0-100.0) fL MCH (25.0-35.0) pg RDW (11.5-15.5) % Plt Count (150-450) k/uL Potassium 3.1 L (3.5-5.1) mmol/L Chloride 112 H (98-107) mmol/L BUN 26 H (7-17) mg/dL Creatinine 1.30 H (0.52-1.04) mg/dL Glucose 116 H (74-99) mg/dL POC Glucose (mg/dL) 143 H 114 H (75-99) mg/dL Calcium 8.3 L (8.4-10.2) mg/dL Magnesium 1.5 L (1.6-2.3) mg/dL Total Bilirubin 3.9 H (0.2-1.3) mg/dL AST 93 H (14-36) U/L ALT 49 H (4-34) U/L Alkaline Phosphatase 249 H (38-126) U/L Total Protein 6.0 L (6.3-8.2) g/dL Albumin 2.4 L (3.5-5.0) g/dL 03/10/20 03/10/20 03/10/20 Range/Units 06:27 07:16 11:49 RBC 3.29 L (3.80-5.40) m/uL Hct 33.8 L (34.0-46.0) % MCV 102.9 H (80.0-100.0) fL MCH 35.3 H (25.0-35.0) pg RDW 15.6 H (11.5-15.5) % Plt Count 92 L (150-450) k/uL Potassium (3.5-5.1) mmol/L Chloride (98-107) mmol/L BUN (7-17) mg/dL Creatinine (0.52-1.04) mg/dL Glucose (74-99) mg/dL POC Glucose (mg/dL) 154 H 106 H (75-99) mg/dL Calcium (8.4-10.2) mg/dL Magnesium (1.6-2.3) mg/dL Total Bilirubin (0.2-1.3) mg/dL AST (14-36) U/L ALT (4-34) U/L Alkaline Phosphatase (38-126) U/L Total Protein (6.3-8.2) g/dL Albumin (3.5-5.0) g/dL Assessment and Plan Assessment: Hepatic encephalopathy with known cirrhosis -lactulose and rifaximin (patient is unable to afford this as insurance will not cover) -torsemide and Aldactone -GI recommendations -Clinically doubt SBP as she has already received treatment for this since last paracentesis however 2 more days to complete treatment -Continue with palliative care -resume home Morphine but at lower doses - discussed progression of disease and need for more help with SNF on discharge. Hepatocellular carcinoma status post chemo embolization - Increasing size of liver mass noted in November 2019 -Follow up with her outpatient oncologist, states is supposed to be starting a pill Chronically elevated troponin -No need for recheck -At baseline -Follow telemetry Diabetes mellitus type 2 -resumed on diet - Novolog N and R -Follow blood sugars -A1c 5.1 Chronic pain - Resume oral morphine long and as needed short acting, but at lower doses Thrombocytopenia, secondary sclerosis -At baseline -Follow CBC Chronic kidney disease stage III -Appears at baseline -Continue with diuretics and-follow creatinine Intractable nausea and vomiting, resolved DVT prophylaxis: SCDs Discussed with: Patient, nursing, Dr Francois Anticipated discharge date: 2-[address]: SNF A total of 35 minutes was spent on the care of this complex patient more than 50% of the time was spent in counseling and care coordination.
--- NOTE | 2020-03-10 17:03 | P.PN ---
Subjective Progress Note Date: 03/10/20 Principal diagnosis: Decompensated cirrhosis with ascites and encephalopathy, HCC with progression on imaging Patient seen lying in bed reporting mentation is improved. Good output from ostomy. No nausea or vomiting. Still reporting some abdominal pain. Objective - Vital Signs Vital signs: Vital Signs Temp 97.9 F 03/10/20 04:42 Pulse 72 03/10/20 04:42 Resp 16 03/10/20 04:42 BP 110/59 03/10/20 04:42 Pulse Ox 98 03/10/20 04:42 Intake & Output 03/09/20 03/10/20 03/10/20 18:59 06:59 18:59 Intake Total 350 Output Total 301 300 Balance -301 350 -300 Intake: Intake, IV Titration 350 Amount Sodium Chloride 0.9% 1, 350 000 ml @ 100 mls/hr IV . Q10H ONE Rx#:[id number] Output: Urine 1 Stool 300 300 Other: Voiding Method Bedside Commode Bedside Commode # Voids 1 3 # Bowel Movements 1 - Exam On physical examination, patient appears comfortable in no apparent distress. HEAD: Normocephalic, atraumatic. EYES: No scleral icterus. No conjunctival injection. MOUTH: No lesions, tongue midline. NECK: Trachea midline, no gross abnormalities. ABDOMEN: Soft, obese, with ostomy in place with good output. Mildly tender to palpation. Bowel sounds are positive. No organomegaly. No guarding or rigidity. EXTREMITIES: No pedal edema. SKIN: No rashes, no jaundice. NEUROLOGIC: Alert and oriented x3, with improved mentation and decreased asterixis noted. - Labs CBC & Chem 7: 03/10/20 06:27 03/10/20 06:27 Labs: Abnormal Lab Results - Last 24 Hours (Table) 03/09/20 03/09/20 03/09/20 Range/Units 10:54 16:57 21:08 RBC (3.80-5.40) m/uL Hct (34.0-46.0) % MCV (80.0-100.0) fL MCH (25.0-35.0) pg RDW (11.5-15.5) % Plt Count (150-450) k/uL Potassium (3.5-5.1) mmol/L Chloride (98-107) mmol/L BUN (7-17) mg/dL Creatinine (0.52-1.04) mg/dL Glucose (74-99) mg/dL POC Glucose (mg/dL) 107 H 143 H 114 H (75-99) mg/dL Calcium (8.4-10.2) mg/dL Magnesium (1.6-2.3) mg/dL Total Bilirubin (0.2-1.3) mg/dL AST (14-36) U/L ALT (4-34) U/L Alkaline Phosphatase (38-126) U/L Total Protein (6.3-8.2) g/dL Albumin (3.5-5.0) g/dL 03/10/20 03/10/20 03/10/20 Range/Units 06:27 06:27 07:16 RBC 3.29 L (3.80-5.40) m/uL Hct 33.8 L (34.0-46.0) % MCV 102.9 H (80.0-100.0) fL MCH 35.3 H (25.0-35.0) pg RDW 15.6 H (11.5-15.5) % Plt Count 92 L (150-450) k/uL Potassium 3.1 L (3.5-5.1) mmol/L Chloride 112 H (98-107) mmol/L BUN 26 H (7-17) mg/dL Creatinine 1.30 H (0.52-1.04) mg/dL Glucose 116 H (74-99) mg/dL POC Glucose (mg/dL) 154 H (75-99) mg/dL Calcium 8.3 L (8.4-10.2) mg/dL Magnesium 1.5 L (1.6-2.3) mg/dL Total Bilirubin 3.9 H (0.2-1.3) mg/dL AST 93 H (14-36) U/L ALT 49 H (4-34) U/L Alkaline Phosphatase 249 H (38-126) U/L Total Protein 6.0 L (6.3-8.2) g/dL Albumin 2.4 L (3.5-5.0) g/dL Assessment and Plan (1) Cirrhosis of liver with ascites Narrative/Plan: 74-year-old female who is presenting to the hospital due to altered mental status, she has frequent admissions both for abdominal distention and ascites as well as encephalopathy in the setting of history of nonalcoholic cirrhosis with ascites and encephalopathy and hepatocellular carcinoma for which she previously underwent treatment, and for which recent imaging earlier in the year showed progression of the disease. On current presentation the patient is found to be encephalopathic with a markedly elevated ammonia level greater than 400. Patient has been unable to afford the rifaximin in the outpatient setting as it causes been prohibitive, but is also noncompliant with lactulose therapy. Mentation improved today with asterixis also improved and ammonia level less than 9. Current Visit: No Status: Chronic Code(s): K74.60 - UNSPECIFIED CIRRHOSIS OF LIVER; R18.8 - OTHER ASCITES SNOMED Code(s): 39756658 (2) Change in mental status Current Visit: Yes Status: Acute Code(s): R41.82 - ALTERED MENTAL STATUS, UNSPECIFIED SNOMED Code(s): 176219565 (3) Hyperammonemia Current Visit: Yes Status: Acute Code(s): E72.20 - DISORDER OF UREA CYCLE METABOLISM, UNSPECIFIED SNOMED Code(s): 5676929 (4) Chronic liver disease Current Visit: No Status: Acute Code(s): K76.9 - LIVER DISEASE, UNSPECIFIED SNOMED Code(s): 354717507 (5) Hepatic encephalopathy Current Visit: No Status: Acute Code(s): K72.90 - HEPATIC FAILURE, UN SPECIFIED WITHOUT COMA SNOMED Code(s): 56074290 (6) Hepatocellular carcinoma Current Visit: No Status: Chronic Priority: Medium Code(s): C22.0 - LIVER CELL CARCINOMA SNOMED Code(s): 097868872 Plan: Supportive care Okay for sodium restricted diet Lactulose 4 times a day ordered Rifaximin twice a day Continue torsemide and spironolactone for treatment of ascites Continue to monitor clinically Okay to continue empiric antibiotic therapy Thank you for allowing us to participate in the care of the patient
[2020-03-10 17:09] LABS: Glucose,Whole Blood 325 mg/dL (75-99)
[2020-03-10 20:22] LABS: Glucose,Whole Blood 159 mg/dL (75-99)
[2020-03-11 07:27] LABS: Glucose,Whole Blood 167 mg/dL (75-99)
[2020-03-11] MEDS: LACTULOSE 20 GM/30 ML CUP PO SCH ×3 (08:19→20:28)
[2020-03-11] MEDS: METOPROLOL TARTRATE 25 MG TAB PO SCH (08:20)
[2020-03-11] MEDS: RIFAXIMIN 550 MG TABLET PO SCH ×2 (08:20→20:22)
[2020-03-11] MEDS: INSULIN ASPART (NovoLOG) 100 UNIT/ML VIAL SQ SCH ×3 (08:20→18:05)
[2020-03-11] MEDS: MORPHINE SULFATE ER 15 MG TABLET PO SCH ×2 (08:21→20:22)
[2020-03-11] MEDS: PANTOPRAZOLE 40 MG TABLET PO SCH (08:21)
[2020-03-11] MEDS: SUCRALFATE 1 GM TAB PO SCH ×4 (08:21→21:31)
[2020-03-11] MEDS: SPIRONOLACTONE 25 MG TAB PO SCH (08:21)
[2020-03-11] MEDS: buPROPion SR 150 MG TABLET.ER PO SCH (08:21)
[2020-03-11] MEDS: TORSEMIDE 20 MG TAB PO SCH (08:22)
[2020-03-11] MEDS: DICYCLOMINE 20 MG TAB PO SCH ×4 (08:22→21:31)
[2020-03-11] MEDS: INSULIN NPH 300 UNIT/3 ML VIAL SQ SCH ×2 (08:33→20:40)
[2020-03-11] MEDS: INSULIN REGULAR 100 UNIT/ML VIAL SQ SCH ×3 (08:50→18:05)
[2020-03-11 11:16] LABS: Glucose,Whole Blood 304 mg/dL (75-99)
--- NOTE | 2020-03-11 16:41 | PN ---
PROGRESS NOTE DATE OF DICTATION: 03/11/2020 This patient is a 74-year-old pleasant white female admitted to the hospital with history of nonalcoholic fatty liver disease with cirrhosis of the liver, portal hypertension complicated by hepatocellular carcinoma that was treated in the past at [facility]. She was admitted with hepatic encephalopathy and altered mental status. Her ammonia level was 400. She was started on Xifaxan as well as lactulose, and today ammonia level is 12. She is feeling much better. She is awake, oriented to name and place. She denies any abdominal pain. No nausea or vomiting. PHYSICAL EXAMINATION: Appears comfortable. No apparent distress. VITAL SIGNS: Stable. Blood pressure is 112/69, pulse rate 56, temperature 98.4. HEENT examination unremarkable. Conjunctivae pink. Sclerae anicteric. Oral cavity no lesions. NECK: No JVD or lymph node enlargement. CHEST: Clear to auscultation. HEART: Regular rate and rhythm. ABDOMEN: Soft. Colostomy in place that has liquid stool. Rest of the abdomen was benign. EXTREMITIES: No pedal edema. SKIN: No rashes. NEUROLOGIC: Alert and oriented x3. No focal deficits. LABS: Labs done from today show ammonia level is . T-bilirubin 3.9, AST and ALT 93 and 49, alkaline phosphatase 249. CBC has a hemoglobin of 11.6 and platelets of 92,000. IMPRESSION: 1. Altered mental status secondary to hepatic encephalopathy. Remains on lactulose as well as Xifaxan. She has been having 3-4 soft bowel movements daily. Ammonia level has significantly improved and patient's mental status has significantly improved, too. 2. Non-alcoholic fatty liver disease with cirrhosis of the liver with gradual decompensation. 3. Hepatocellular carcinoma, for which she follows at [facility]. Last visit was approximately a year ago. She in fact had an appointment but could not make it because of ongoing issues with the pandemic. 4. Mild pancytopenia secondary to underlying cirrhosis of the liver. 5. History of ascites Aldactone 25 mg daily. 6. Nausea and vomiting, resolved. RECOMMENDATIONS: 1. Continue with Xifaxan 550 mg twice daily. 2. Continue lactulose 30 mL 3 times daily and titrate so that she has 3-4 soft bowel movements daily. 3. Monitor ammonia level on a daily basis. 4. Continue broad-spectrum antibiotics for possible SBP. 5. Repeat labs in the morning and will follow with you closely. Thank you for this consultation. MMODL / IJN: [id number] /
[2020-03-11 17:18] LABS: Glucose,Whole Blood 113 mg/dL (75-99)
--- NOTE | 2020-03-11 18:45 | P.PN ---
Subjective Progress Note Date: 03/11/20 (delayed charting seen at 1445) Principal diagnosis: confusion Patient is a 74-year-old female with hepatocellular carcinoma with enlargement of mass in November 2019 who is still having difficulty coordinating follow-up, nonalcoholic steatohepatitis poorly controlled with multiple hospitalizations for hepatic encephalopathy and ascites, chronic kidney disease stage III, and diabetes mellitus type 2 insulin requiring who presented to the emergency department with intractable nausea, vomiting, and abdominal pain. On arrival to the ER she had a mild temperature at 99.9. Laboratory analysis showed known thrombocytopenia, no chronic creatinine elevation, elevated liver enzymes, chronically elevated troponin, and extremely elevated ammonia level of 414. Urinalysis was negative. Covid 19 negative. She was given multiple doses of morphine and Ativan in the ER. She started on Rocephin. She was admitted for further monitoring. Her ammonia level came down with the addition of rifaximin and resumption of her home lactulose dosing. She continues to be significantly weak. She would go to [facility] Patient seen and examined at bedside. Feeling better today, is aware that she has been worsening overall, no chest pain shortness of breath, or abdominal pain. She states she feels her appetite is slightly better. Objective - Vital Signs Vital signs: Vital Signs Temp 98.4 F 03/11/20 11:20 Pulse 56 L 03/11/20 11:20 Resp 16 03/11/20 11:20 BP 112/69 03/11/20 11:20 Pulse Ox 100 03/11/20 11:20 Intake & Output 03/10/20 03/11/20 03/11/20 18:59 06:59 18:59 Intake Total 650 1540 50 Output Total 1500 200 Balance -850 1340 50 Intake: Intake, IV Titration 50 50 Amount cefTRIAXone 1 gm In 50 50 Sodium Chloride 0.9% 50 ml @ 100 mls/hr IVPB Q24HR [facility] Rx#:[id number] Oral 600 1540 Output: Stool 1500 200 Other: Voiding Method Bedside Commode Bedside Commode # Voids 1 1 # Bowel Movements 2 1 - Exam General: Chronically ill-appearing, no distress, appears older than stated age, temporal wasting Derm: Multiple areas of ecchymoses warm, dry Head: atraumatic, normocephalic, symmetric Eyes: EOMI, no lid lag, anicteric sclera Mouth: no lip lesion, mucus membranes moist Cardiovascular: S1S2 reg, no murmur, positive posterior tibial pulse bilateral, Lungs: Decreased bs bilateral, no rhonchi, no rales , no accessory muscle use Abdominal: soft, nontender to palpation, no guarding, no appreciable organomegaly Ext: no gross muscle atrophy, no edema, no contractures Neuro: CN II-XI grossly intact, no focal neuro deficits Psych: Awake, alert, appropriate affect - Labs CBC & Chem 7: 03/10/20 06:27 03/10/20 06:27 Labs: Abnormal Lab Results - Last 24 Hours (Table) 03/10/20 03/11/20 03/11/20 Range/Units 20:01 07:10 11:05 POC Glucose (mg/dL) 159 H 167 H 304 H (75-99) mg/dL 03/11/20 Range/Units 17:16 POC Glucose (mg/dL) 113 H (75-99) mg/dL Assessment and Plan Assessment: Hepatic encephalopathy with known cirrhosis -lactulose and rifaximin (patient is unable to afford this as insurance will not cover) -Continue torsemide and Aldactone -GI recommendations appreciated -Continue broad-spectrum antibiotics for possible SBP. -Continue with palliative care which she is on at home -MS Contin resumed on 03/10 at half her normal dose, morphine sulfate IR resumed on 03/10 at decreased dose Hepatocellular carcinoma status post chemo embolization - Increasing size of liver mass noted in November 2019 -Follow up with her outpatient oncology team. [facility]. She has had difficulty with consistent follow-up secondary to the pandemic -I reemphasized with her again this hospital stay the importance of following up. Diabetes mellitus type 2 - Novolog N and R ( have decreased dosing since admission, but slowly going back up) -Follow blood sugars -A1c 5.1 Chronically elevated troponin -No need for recheck -At baseline -Follow telemetry Chronic pain - Resumed oral morphine long and as needed short acting, but at lower doses 03/10 Thrombocytopenia, secondary sclerosis -At baseline -Follow CBC Chronic kidney disease stage III -Appears at baseline -Continue with diuretics and-follow creatinine Intractable nausea and vomiting, resolved Plan is for discharge to [facility] once auth obtained. DVT prophylaxis: SCDs Discussed with: Patient, nursing, Anticipated discharge date: 1-[address]: SNF A total of 35 minutes was spent on the care of this complex patient more than 50% of the time was spent in counseling and care coordination.
[2020-03-11 20:32] LABS: Glucose,Whole Blood 228 mg/dL (75-99)
[2020-03-12 06:57] LABS: Glucose,Whole Blood 138 mg/dL (75-99)
[2020-03-12 07:13] LABS: Calcium 7.6 mg/dL (8.4-10.2); Magnesium 1.3 mg/dL (1.6-2.3); Total Bilirubin 1.9 mg/dL (0.2-1.3); Total Protein 5.3 g/dL (6.3-8.2)
[2020-03-12 07:15] LABS: Potassium 3.3 mmol/L (3.5-5.1)
[2020-03-12] MEDS: MORPHINE SULFATE ER 15 MG TABLET PO SCH ×2 (08:00→21:59)
[2020-03-12] MEDS: LACTULOSE 20 GM/30 ML CUP PO SCH ×3 (08:00→20:21)
[2020-03-12] MEDS: DICYCLOMINE 20 MG TAB PO SCH ×4 (08:00→21:59)
[2020-03-12] MEDS: INSULIN ASPART (NovoLOG) 100 UNIT/ML VIAL SQ SCH ×3 (08:01→18:06)
[2020-03-12] MEDS: METOPROLOL TARTRATE 25 MG TAB PO SCH (08:01)
[2020-03-12] MEDS: TORSEMIDE 20 MG TAB PO SCH (08:02)
[2020-03-12] MEDS: SUCRALFATE 1 GM TAB PO SCH ×4 (08:02→21:59)
[2020-03-12] MEDS: SPIRONOLACTONE 25 MG TAB PO SCH (08:02)
[2020-03-12] MEDS: buPROPion SR 150 MG TABLET.ER PO SCH (08:02)
[2020-03-12] MEDS: PANTOPRAZOLE 40 MG TABLET PO SCH (08:02)
[2020-03-12] MEDS: RIFAXIMIN 550 MG TABLET PO SCH ×2 (08:02→21:59)
[2020-03-12] MEDS: INSULIN REGULAR 100 UNIT/ML VIAL SQ SCH ×3 (08:03→18:06)
[2020-03-12] MEDS: INSULIN NPH 300 UNIT/3 ML VIAL SQ SCH ×2 (08:04→22:00)
[2020-03-12 11:01] LABS: Glucose,Whole Blood 302 mg/dL (75-99)
--- NOTE | 2020-03-12 16:42 | P.PN ---
Subjective Progress Note Date: 03/12/20 74-year-old female with a history of hepatocellular carcinoma, nonalcoholic steatohepatitis that is poorly controlled with multiple hospitalizations with ascites and encephalopathy. She was admitted a few days ago with a significantly elevated ammonia level at 414, temperature 99.9, and was treated empirically for SBP. She feels slightly better today, her abdominal pain is improving but she is complaining of worsening nausea but without vomiting. She has been afebrile and hemodynamically stable, denies shortness of breath, no cough, no chest pain, no headache or lightheadedness. She is tolerating a regular diet and is improving overall Objective - Vital Signs Vital signs: Vital Signs Temp 99 F 03/12/20 12:20 Pulse 54 L 03/12/20 12:20 Resp 17 03/12/20 12:20 BP 103/57 03/12/20 12:20 Pulse Ox 98 03/12/20 12:20 Intake & Output 03/11/20 03/12/20 03/12/20 18:59 06:59 18:59 Intake Total 50 480 Balance 50 480 Intake: IV 240 ns@20 240 Intake, IV Titration 50 Amount cefTRIAXone 1 gm In 50 Sodium Chloride 0.9% 50 ml @ 100 mls/hr IVPB Q24HR [facility] Rx#:[id number] Oral 240 Other: Voiding Method Toilet - Exam General: Chronically ill-appearing, in no acute distress, sitting in chair comfortably, alert and oriented Derm: Multiple areas of ecchymoses warm, dry Head: atraumatic, normocephalic Eyes: EOMI, anicteric sclera Mouth: no lip lesion, mucus membranes moist Cardiovascular: S1S2 reg, no murmur, positive posterior tibial pulse bilateral, Lungs: Decreased breath sounds bilaterally, no rhonchi, no rales , no accessory muscle use Abdominal: Soft, minimal diffuse tenderness, possibly back in place, hypoactive bowel sounds Ext: no gross muscle atrophy, no edema, no contractures Neuro: CN II-XI grossly intact, no focal neuro deficits Psych: Awake, alert, appropriate affect - Labs CBC & Chem 7: 03/10/20 06:27 03/12/20 06:04 Labs: Abnormal Lab Results - Last 24 Hours (Table) 03/11/20 03/11/20 03/12/20 Range/Units 17:16 20:31 06:04 Sodium 134 L (137-145) mmol/L Potassium 3.3 L (3.5-5.1) mmol/L BUN 20 H (7-17) mg/dL Creatinine 1.13 H (0.52-1.04) mg/dL Glucose 129 H (74-99) mg/dL POC Glucose (mg/dL) 113 H 228 H (75-99) mg/dL Calcium 7.6 L (8.4-10.2) mg/dL Magnesium 1.3 L (1.6-2.3) mg/dL Total Bilirubin 1.9 H (0.2-1.3) mg/dL AST 75 H (14-36) U/L ALT 44 H (4-34) U/L Alkaline Phosphatase 268 H (38-126) U/L Total Protein 5.3 L (6.3-8.2) g/dL Albumin 2.0 L (3.5-5.0) g/dL 03/12/20 03/12/20 Range/Units 06:55 10:59 Sodium (137-145) mmol/L Potassium (3.5-5.1) mmol/L BUN (7-17) mg/dL Creatinine (0.52-1.04) mg/dL Glucose (74-99) mg/dL POC Glucose (mg/dL) 138 H 302 H (75-99) mg/dL Calcium (8.4-10.2) mg/dL Magnesium (1.6-2.3) mg/dL Total Bilirubin (0.2-1.3) mg/dL AST (14-36) U/L ALT (4-34) U/L Alkaline Phosphatase (38-126) U/L Total Protein (6.3-8.2) g/dL Albumin (3.5-5.0) g/dL Assessment and Plan Assessment: #Hepatic encephalopathy -Ammonia level and mentation improving with lactulose and rifaximin -Patient is unable to afford rifaximin which is not covered by insurance. This will most likely not be described at discharge -Continue current antibiotics for possible SBP -Continue IV diuretics and spironolactone -Patient further input from gastroenterology # Hepatocellular carcinoma -In the setting of nonalcoholic hepatitis -Status post chemoembolization, there has been an increase in the size of liver mass. 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 DVT prophylaxis: SCDs Discussed with: Patient, nursing, Anticipated discharge date: 1-[address]: SNF
[2020-03-12 17:22] LABS: Glucose,Whole Blood 197 mg/dL (75-99)
--- NOTE | 2020-03-12 17:22 | PN ---
PROGRESS NOTE DATE OF SERVICE: 03/12/2020 This patient is a 74-year-old pleasant white female with a history of non-alcoholic fatty liver disease with cirrhosis/portal hypertension/ascites and hepatic encephalopathy, admitted to the hospital with altered mental status. She is on Xifaxan and lactulose and doing much better. She had some abdominal pain today after giving her a dose of lactulose that subsequently subsided. She emptied her colostomy bag at least 7 times since this morning. She reports no nausea or vomiting. PHYSICAL EXAMINATION: She appears comfortable. No apparent distress Vital signs are stable. Blood pressure is 103/57, pulse rate 54, temperature 99.9. HEENT examination unremarkable. Conjunctivae pink. Sclerae anicteric. Oral cavity no lesions. NECK: No JVD or lymph node enlargement. CHEST: Clear to auscultation. HEART: Regular rate and rhythm. ABDOMEN: Soft. It was non-tender, non-distended. Bowel sounds are positive. Colostomy bag has liquid stool. EXTREMITIES: No pedal edema. NEUROLOGIC: Alert and oriented x3. No focal deficits. LABS: Labs from today show sodium 134, potassium 3.3, BUN 20, creatinine 1.13, T-bilirubin 1.9, AST and ALT 74 and 44, respectively. Alkaline phosphatase 282. Ammonia level yesterday was 12. IMPRESSION: 1. Hepatic encephalopathy, resolved, presently on lactulose and Xifaxan. 2. Increasing colostomy output secondary to diarrhea from lactulose. Will hold if off so that she has at least 2 to 3 bowel movements a day. 3. Thrombocytopenia secondary to underlying liver disease. 4. Cirrhosis of the liver with gradual decompensation. 5. Hepatocellular carcinoma, treated 2 years ago. Follows at [facility]. 6. Abdominal pain, probably related to lactulose. Will the dose today. RECOMMENDATIONS: 1. Change the lactulose to 30 mL twice daily and hold it if she has 3-4 bowel movements daily. 2. Continue with Xifaxan. 3. Continue broad-spectrum antibiotics. 4. Repeat labs in the morning. Will follow with you closely. Thank you for this consultation. MMODL / IJN: [id number] /
[2020-03-12 20:04] LABS: Glucose,Whole Blood 179 mg/dL (75-99)
[2020-03-13] MEDS: MORPHINE SULFATE IR 15 MG TABLET PO PRN (05:48)
[2020-03-13 06:43] LABS: Basophils % (A) 1 %; Eosinophils # (A) 0.2 k/uL (0-0.7); Eosinophils % (A) 5 %; HCT 32.8 % (34.0-46.0); HGB 10.4 gm/dL (11.4-16.0); Lymphocytes # (A) 0.8 k/uL (1.0-4.8); Lymphocytes % (A) 21 %; MCH 34.2 pg (25.0-35.0); MCHC 31.8 g/dL (31.0-37.0); MCV 107.4 fL (80.0-100.0); Macrocytosis Marked; Mean Platelet Volume 10.5; Monocytes # (A) 0.3 k/uL (0-1.0); Monocytes % (A) 9 %; Neutrophils # (A) 2.3 k/uL (1.3-7.7); Neutrophils % (A) 62 %; RBC 3.05 m/uL (3.80-5.40); RDW 14.9 % (11.5-15.5); WBC 3.7 k/uL (3.8-10.6)
[2020-03-13 06:52] LABS: Calcium 7.7 mg/dL (8.4-10.2); Magnesium 1.4 mg/dL (1.6-2.3); Potassium 3.8 mmol/L (3.5-5.1); Total Bilirubin 1.7 mg/dL (0.2-1.3); Total Protein 5.5 g/dL (6.3-8.2)
[2020-03-13 07:00] LABS: Glucose,Whole Blood 191 mg/dL (75-99)
[2020-03-13] MEDS: SUCRALFATE 1 GM TAB PO SCH ×4 (08:09→21:43)
[2020-03-13] MEDS: METOPROLOL TARTRATE 25 MG TAB PO SCH (08:09)
[2020-03-13] MEDS: SPIRONOLACTONE 25 MG TAB PO SCH (08:11)
[2020-03-13] MEDS: buPROPion SR 150 MG TABLET.ER PO SCH (08:11)
[2020-03-13] MEDS: RIFAXIMIN 550 MG TABLET PO SCH ×2 (08:11→21:43)
[2020-03-13] MEDS: TORSEMIDE 20 MG TAB PO SCH (08:11)
[2020-03-13] MEDS: MORPHINE SULFATE ER 15 MG TABLET PO SCH ×2 (08:12→21:43)
[2020-03-13] MEDS: INSULIN NPH 300 UNIT/3 ML VIAL SQ SCH ×2 (08:13→21:42)
[2020-03-13] MEDS: INSULIN ASPART (NovoLOG) 100 UNIT/ML VIAL SQ SCH ×3 (08:13→18:00)
[2020-03-13] MEDS: LACTULOSE 20 GM/30 ML CUP PO SCH ×4 (08:13→21:38)
[2020-03-13] MEDS: DICYCLOMINE 20 MG TAB PO SCH ×4 (08:14→21:43)
[2020-03-13] MEDS: PANTOPRAZOLE 40 MG TABLET PO SCH (08:14)
[2020-03-13] MEDS: INSULIN REGULAR 100 UNIT/ML VIAL SQ SCH ×3 (08:31→18:00)
[2020-03-13 08:35] LABS: Platelet Count 73 k/uL (150-450)
[2020-03-13 08:36] LABS: Poikilocytosis (M) Present
[2020-03-13 11:04] LABS: Glucose,Whole Blood 251 mg/dL (75-99)
--- NOTE | 2020-03-13 15:08 | P.PN ---
Subjective Progress Note Date: 03/13/20 Patient is complaining of abdominal pain nausea but no vomiting today. Denies any fevers or chills, she is tolerating regular diet, her nausea is not induced by eating. Ammonia level increased significantly today to 117, upon further investigation it was evident that the patient had refused 2 doses of lactulose last night which may have been the cause. The importance of adhering to her medications was emphasized and the patient is agreeable to take lactulose as intended. Plan is to discharge to [facility] tomorrow Objective - Vital Signs Vital signs: Vital Signs Temp 98.7 F 03/13/20 12:38 Pulse 51 L 03/13/20 12:38 Resp 16 03/13/20 12:38 BP 100/54 03/13/20 12:38 Pulse Ox 99 03/13/20 12:38 Intake & Output 03/12/20 03/13/20 03/13/20 18:59 06:59 18:59 Intake Total 210 680 Output Total 200 Balance 210 680 -200 Intake: IV 160 80 ns@20 160 80 Intake, IV Titration 50 Amount cefTRIAXone 1 gm In 50 Sodium Chloride 0.9% 50 ml @ 100 mls/hr IVPB Q24HR [facility] Rx#:[id number] Oral 600 Output: Stool 200 Other: Voiding Method Toilet Toilet # Voids 4 2 # Bowel Movements 4 - Exam General: Chronically ill-appearing, in no acute distress, sitting in chair comfortably, alert and oriented Derm: Multiple areas of ecchymoses warm, dry Head: atraumatic, normocephalic Eyes: EOMI, anicteric sclera Mouth: no lip lesion, mucus membranes moist Cardiovascular: S1S2 reg, no murmur, positive posterior tibial pulse bilateral, Lungs: Decreased breath sounds bilaterally, no rhonchi, no rales , no accessory muscle use Abdominal: Soft, minimal diffuse tenderness, possibly back in place, hypoactive bowel sounds Ext: no gross muscle atrophy, no edema, no contractures Neuro: CN II-XI grossly intact, no focal neuro deficits Psych: Awake, alert, appropriate affect - Labs CBC & Chem 7: 03/13/20 06:18 03/13/20 06:18 Labs: Abnormal Lab Results - Last 24 Hours (Table) 03/12/20 03/12/20 03/13/20 Range/Units 17:21 20:03 06:18 WBC 3.7 L (3.8-10.6) k/uL RBC 3.05 L (3.80-5.40) m/uL Hgb 10.4 L (11.4-16.0) gm/dL Hct 32.8 L (34.0-46.0) % MCV 107.4 H (80.0-100.0) fL Plt Count 73 L (150-450) k/uL Lymphocytes # 0.8 L (1.0-4.8) k/uL Macrocytosis Marked A Sodium (137-145) mmol/L BUN (7-17) mg/dL Creatinine (0.52-1.04) mg/dL Glucose (74-99) mg/dL POC Glucose (mg/dL) 197 H 179 H (75-99) mg/dL Calcium (8.4-10.2) mg/dL Magnesium (1.6-2.3) mg/dL Total Bilirubin (0.2-1.3) mg/dL AST (14-36) U/L ALT (4-34) U/L Alkaline Phosphatase (38-126) U/L Ammonia (<30) umol/L Total Protein (6.3-8.2) g/dL Albumin (3.5-5.0) g/dL 03/13/20 03/13/20 03/13/20 Range/Units 06:18 06:18 06:59 WBC (3.8-10.6) k/uL RBC (3.80-5.40) m/uL Hgb (11.4-16.0) gm/dL Hct (34.0-46.0) % MCV (80.0-100.0) fL Plt Count (150-450) k/uL Lymphocytes # (1.0-4.8) k/uL Macrocytosis Sodium 133 L (137-145) mmol/L BUN 22 H (7-17) mg/dL Creatinine 1.33 H (0.52-1.04) mg/dL Glucose 192 H (74-99) mg/dL POC Glucose (mg/dL) 191 H (75-99) mg/dL Calcium 7.7 L (8.4-10.2) mg/dL Magnesium 1.4 L (1.6-2.3) mg/dL Total Bilirubin 1.7 H (0.2-1.3) mg/dL AST 76 H (14-36) U/L ALT 47 H (4-34) U/L Alkaline Phosphatase 272 H (38-126) U/L Ammonia 117 H (<30) umol/L Total Protein 5.5 L (6.3-8.2) g/dL Albumin 2.0 L (3.5-5.0) g/dL 03/13/20 Range/Units 10:54 WBC (3.8-10.6) k/uL RBC (3.80-5.40) m/uL Hgb (11.4-16.0) gm/dL Hct (34.0-46.0) % MCV (80.0-100.0) fL Plt Count (150-450) k/uL Lymphocytes # (1.0-4.8) k/uL Macrocytosis Sodium (137-145) mmol/L BUN (7-17) mg/dL Creatinine (0.52-1.04) mg/dL Glucose (74-99) mg/dL POC Glucose (mg/dL) 251 H (75-99) mg/dL Calcium (8.4-10.2) mg/dL Magnesium (1.6-2.3) mg/dL Total Bilirubin (0.2-1.3) mg/dL AST (14-36) U/L ALT (4-34) U/L Alkaline Phosphatase (38-126) U/L Ammonia (<30) umol/L Total Protein (6.3-8.2) g/dL Albumin (3.5-5.0) g/dL Assessment and Plan Assessment: #Hepatic encephalopathy -Ammonia level increased significantly today to 117, patient had refused 2 doses of lactulose as night -Continue lactulose and rifampin for now, repeat ammonia level on the morning -Continue current antibiotics for possible SBP -Continue IV diuretics and spironolactone # Hepatocellular carcinoma -In the setting of nonalcoholic hepatitis -Status post chemoembolization, there has been an increase in the size of liver mass. 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
[2020-03-13 17:31] LABS: Glucose,Whole Blood 70 mg/dL (75-99)
--- NOTE | 2020-03-13 17:41 | PN ---
PROGRESS NOTE DATE OF DICTATION: 03/13/2020 This patient is a 74-year-old pleasant white female admitted to the hospital with acute hepatic encephalopathy. Remains on Xifaxan as well as lactulose and is doing much better. She had about 3 loose bowel movements in the colostomy bag this morning, which she had emptied. Received dose of lactulose so far. She denies any new symptoms; has some abdominal pain. No nausea or vomiting. PHYSICAL EXAMINATION: Appears comfortable. No apparent distress Vital signs are stable. Blood pressure 100/54, pulse rate 51, temperature 98.7. HEENT examination unremarkable. Conjunctivae pink. Sclerae anicteric. Oral cavity no lesions. NECK: No JVD or lymph node enlargement. CHEST: Clear to auscultation. HEART: Regular rate and rhythm. ABDOMEN: Soft. There was mild tenderness in the epigastric area. Colostomy in place, which appeared normal. EXTREMITIES: No pedal edema. SKIN: No rashes. NEUROLOGIC: Alert and oriented x3. No focal deficits. LABS: Labs done from today show WBC 3.7, hemoglobin 10.4, platelets 73,000. Ammonia level was 117. AST and ALT are 76 and 47, respectively. T-bilirubin 1.7 and alkaline phosphatase 272. IMPRESSION: 1. Hepatic encephalopathy, resolved, on Xifaxan and lactulose. Lactulose dose was titrated so that she has 3 to 4 soft bowel movements daily. Apparently the ammonia level was increased to 117 today. However, clinically she is very alert and oriented. 2. Fatty liver disease with cirrhosis of the liver with gradual decompensation. 3. Intermittent nausea and vomiting, resolving. 4. Abdominal pain. 5. Hepatocellular carcinoma, followed at [facility]. RECOMMENDATIONS: 1. Continue Xifaxan 550 mg twice daily. 2. Lactulose 30 mL twice daily. Hold it if she has 3 bowel movements daily. 3. Repeat ammonia level in the morning. 4. Will follow with you closely. Thank you for this consultation. MMODL / IJN: [id number] /
[2020-03-13 20:17] LABS: Glucose,Whole Blood 262 mg/dL (75-99)
[2020-03-14 07:08] LABS: Glucose,Whole Blood 174 mg/dL (75-99)
[2020-03-14 07:43] LABS: Basophils % (A) 1 %; Eosinophils # (A) 0.3 k/uL (0-0.7); Eosinophils % (A) 6 %; HCT 35.4 % (34.0-46.0); HGB 11.5 gm/dL (11.4-16.0); Hypochromasia Moderate; Lymphocytes # (A) 1.2 k/uL (1.0-4.8); Lymphocytes % (A) 25 %; MCH 36.3 pg (25.0-35.0); MCHC 32.5 g/dL (31.0-37.0); MCV 111.5 fL (80.0-100.0); Macrocytosis Marked; Monocytes # (A) 0.3 k/uL (0-1.0); Monocytes % (A) 7 %; Neutrophils # (A) 2.9 k/uL (1.3-7.7); Neutrophils % (A) 60 %; RBC 3.18 m/uL (3.80-5.40); RDW 14.9 % (11.5-15.5); WBC 4.9 k/uL (3.8-10.6)
[2020-03-14 07:44] LABS: Platelet Count 86 k/uL (150-450)
[2020-03-14 07:49] LABS: Albumin 2.3 g/dL (3.5-5.0); Calcium 7.9 mg/dL (8.4-10.2); Total Protein 6.1 g/dL (6.3-8.2)
[2020-03-14] MEDS: INSULIN ASPART (NovoLOG) 100 UNIT/ML VIAL SQ SCH ×2 (08:29→12:38)
[2020-03-14] MEDS: INSULIN REGULAR 100 UNIT/ML VIAL SQ SCH ×2 (08:30→12:38)
[2020-03-14] MEDS: SUCRALFATE 1 GM TAB PO SCH ×2 (08:31→12:38)
[2020-03-14] MEDS: RIFAXIMIN 550 MG TABLET PO SCH (08:31)
[2020-03-14] MEDS: SPIRONOLACTONE 25 MG TAB PO SCH (08:31)
[2020-03-14] MEDS: MORPHINE SULFATE ER 15 MG TABLET PO SCH (08:32)
[2020-03-14] MEDS: METOPROLOL TARTRATE 25 MG TAB PO SCH (08:32)
[2020-03-14] MEDS: PANTOPRAZOLE 40 MG TABLET PO SCH (08:32)
[2020-03-14] MEDS: buPROPion SR 150 MG TABLET.ER PO SCH (08:32)
[2020-03-14] MEDS: INSULIN NPH 300 UNIT/3 ML VIAL SQ SCH (08:33)
[2020-03-14] MEDS: DICYCLOMINE 20 MG TAB PO SCH ×2 (08:33→12:38)
[2020-03-14] MEDS: LACTULOSE 20 GM/30 ML CUP PO SCH (08:33)
[2020-03-14] MEDS: TORSEMIDE 20 MG TAB PO SCH (08:39)
[2020-03-14 11:27] LABS: Glucose,Whole Blood 264 mg/dL (75-99)
[2020-03-14 11:58] VITALS: BP 125/56; PULSE 59; RESP 17; TEMP 99.1
--- NOTE | 2020-03-14 14:20 | P.DS ---
Providers Date of admission: 03/09/20 00:18 Attending physician: Edgar Duncan MD Consults: 03/09/20 04:29 Consult Physician Routine Consulting Provider: Ananth Francois Consult Reason/Comments: Intractable nausea and vomiting Do you want consulting provider notified?: Yes Primary care physician: rAtemio Lea - Discharge Diagnosis(es) (1) Hyperammonemia Current Visit: Yes Status: Acute (2) MORENA (acute kidney injury) Current Visit: No Status: Acute (3) Hepatic encephalopathy Current Visit: No Status: Acute (4) Hypokalemia Current Visit: No Status: Acute (5) Cirrhosis of liver with ascites Current Visit: No Status: Chronic (6) Hepatocellular carcinoma Current Visit: No Status: Chronic Priority: Medium (7) Liver cancer Current Visit: No Status: Chronic Priority: Low (8) Thrombocytopenia Current Visit: No Status: Chronic Priority: Medium Hospital Course: HPI from admission on 03/09/2020: Patient is a 74-year-old female with a PMH of hepatocellular carcinoma in remission, nonalcoholic steatohepatitis, recurrent ascites, recurrent episodes of hepatic encephalopathy, CK stage III, type II DM who presented to the ED with complaints of intractable nausea and vomiting, with intermittent diffuse abdominal pain ongoing for the past few days. Patient reports that due to her nausea and vomiting, she has been unable to eat or drink much, and has been fe eling really weak. She reported that her abdominal pain is diffuse, 8 out of 10, occurs intermittently, lasting for a few minutes at a time, with no clear alleviating or exacerbating features. She reports that the pain however resolved upon presentation to the ED. She also reported feeling fatigued due to her poor oral intake though denied any additional complaints. Denied fever, chills, chest pain, shortness of breath, or diarrhea. She also denied cough, or sore throat. In the the ED, she had a low-grade fever of 99.9, pulse 82, BP 123/79, and was saturating 98 percent on room air. She underwent an extensive evaluation with abdominal films that were unremarkable, and an EKG that showed sinus rhythm with sinus arrhythmia at 73 bpm with left axis deviation and LVH. Laboratory evaluation revealed WBC count of 5.5, and 1112.1, platelets 91, sodium 133, potassium 3.7, CO2 40, BUN 28, creatinine 1.49, troponin 0.152, AST 100, ALT 54, alk phos 375, ammonia 414, and CK 385. The patient is being admitted to the medicine service for further management of intractable nausea and vomiting Hospital course: Patient's mentation and ammonia level improved significantly over the next few days once lactulose and rifampin were started. She had a low-grade fever 99.9 and mild to moderate abdominal pain but without any significant ascites, because of this there was concern for SBP and she was treated empirically with IV ceftriaxone. She remained afebrile throughout her entire stay, abdominal pain eventually subsided. Patient has been requiring oral morphine 15 mg extended release twice a day in addition to immediate release morphine for breakthrough pain. 3 days into her admission, she skipped 2 doses of lactulose due to frequent watery bowel movements, the following day her ammonia level increased from normal to 117 and there was slight worsening of her mentation. The importance of adhering to her lactulose and rifampin regimen was stressed to the patient, lactulose should not be discontinued or decreased unless there is significant diarrhea as her ammonia level increases rapidly. She has a history of hepatocellular carcinoma in the setting of nonalcoholic hepatitis, she received chemoembolization several years ago but there appears to be an increase in the size of the liver. Patient will need outpatient follow-up with oncology within the next 1-2 weeks. She completed a 5 day course of antibiotics, no further treatment at this time. No other significant changes were made to her home medications. She was eventually discharged after 5 days in the hospital to [facility] in stable condition Patient Condition at Discharge: Good Plan - Discharge Summary Discharge Rx Participant: No New Discharge Prescriptions: New Morphine Sulfate ER [Ms Contin] 15 mg PO Q12HR #60 tablet Continue Sucralfate [Carafate] 1 gm PO QID Cholecalciferol [Vitamin D3 (25 Mcg = 1000 Iu)] 4,000 unit PO DAILY Ferrous Sulfate [Iron (65 MG Elemental)] 325 mg PO BID buPROPion HCL [Wellbutrin SR] 150 mg PO DAILY Torsemide [Demadex] 20 mg PO DAILY tab Spironolactone [Aldactone] 25 mg PO DAILY Dicyclomine [Bentyl] 20 mg PO QID Ondansetron Odt [Zofran ODT] 8 mg PO DAILY Omeprazole Magnesium [PriLOSEC OTC] 20 mg PO BID Metoprolol Tartrate [Lopressor] 6.25 mg PO DAILY Rifaximin [Xifaxan] 550 mg PO BID #60 tablet Lactulose [Cephulac] 30 gm PO TID #1000 ml Insulin NPH Human Isophane [humuLIN N] 15 unit SQ BID #0 clonazePAM [KlonoPIN] 0.5 mg PO BID PRN 30 Days #30 tab PRN Reason: Anxiety Morphine Sulfate Ir [MSIR] 15 mg PO Q8H PRN #30 tab PRN Reason: Breakthrough Pain Discontinued Isosorbide Mononitrate ER [Imdur] 30 mg PO DAILY@0800 Morphine Sulfate ER [Ms Contin] 30 mg PO Q12HR Insulin Regular, Human [NovoLIN R] 8 unit SQ AC-TID #0 Discharge Medication List Sucralfate [Carafate] 1 gm PO QID 10/23/18 [History] Cholecalciferol [Vitamin D3 (25 Mcg = 1000 Iu)] 4,000 unit PO DAILY 01/16/19 [History] Ferrous Sulfate [Iron (65 MG Elemental)] 325 mg PO BID 01/31/19 [History] buPROPion HCL [Wellbutrin SR] 150 mg PO DAILY 06/12/19 [History] Torsemide [Demadex] 20 mg PO DAILY tab 11/21/19 [Rx] Spironolactone [Aldactone] 25 mg PO DAILY 11/25/19 [History] Dicyclomine [Bentyl] 20 mg PO QID 01/04/20 [History] Metoprolol Tartrate [Lopressor] 6.25 mg PO DAILY 02/03/20 [History] Omeprazole Magnesium [PriLOSEC OTC] 20 mg PO BID 02/03/20 [History] Ondansetron Odt [Zofran ODT] 8 mg PO DAILY 02/03/20 [History] Insulin NPH Human Isophane [humuLIN N] 15 unit SQ BID #0 03/05/20 [Rx] Lactulose [Cephulac] 30 gm PO TID #1000 ml 03/05/20 [Rx] Rifaximin [Xifaxan] 550 mg PO BID #60 tablet 03/05/20 [Rx] Morphine Sulfate ER [Ms Contin] 15 mg PO Q12HR #60 tablet 03/14/20 [Rx] Morphine Sulfate Ir [MSIR] 15 mg PO Q8H PRN #30 tab 03/14/20 [Rx] clonazePAM [KlonoPIN] 0.5 mg PO BID PRN 30 Days #30 tab 03/14/20 [Rx] Follow up Appointment(s)/Referral(s): Artemio Lea MD [Primary Care Provider] - 1-2 days (The office is closed please call and make your follow up appointment.) Activity/Diet/Wound Care/Special Instructions: Aldo Bear Discharge Disposition: TRANSFER TO SNF/ECF
--- NOTE | 2020-03-14 17:18 | PN ---
PROGRESS NOTE DATE OF DICTATION: 03/14/2020 This patient is a 74-year-old pleasant white female admitted to hospital with hepatic encephalopathy and elevated ammonia level. She is on Xifaxan as well as lactulose and doing better. She is awake. She is very alert today. Yesterday her ammonia level went up to 120, and today it is down to 37. She denies any abdominal pain. She reports no nausea, vomiting. She had about 3 soft bowel movements in the colostomy bag this morning. She reports no bleeding. PHYSICAL EXAMINATION: She appears comfortable. No apparent distress. Vital signs are stable. Blood pressure is 130/86, pulse rate 82 per minute and afebrile. HEENT examination unremarkable. Conjunctivae pink. Sclerae anicteric. Oral cavity no lesions. NECK: No JVD or lymph node enlargement. CHEST: Clear to auscultation. HEART: Regular rate and rhythm. ABDOMEN: Soft. Bowel sounds are positive. No organomegaly. EXTREMITIES: No pedal edema. SKIN: No rashes. NEUROLOGIC: Alert and oriented x3. No focal deficits. LABS: Labs from today: Ammonia level is down to 36. Rest of the labs are stable. IMPRESSION: 1. Hepatic encephalopathy, resolved. Presently on Xifaxan 550 mg twice daily as well as lactulose 30 mL twice daily. 2. Cirrhosis of the liver secondary to fatty liver disease with gradual decompensation. 3. History of ascites. 4. History of hepatocellular carcinoma. RECOMMENDATIONS: 1. Continue with current medications. 2. Increase ambulation. 3. Discharge home today or tomorrow. Thank you for this consultation. MMODL / IJN: [id number] /
== END 2020-03-14 16:16 | DRG 442 ==
LOC: EC 21:47 → 5NMEDONC 03-09 00:18
PROVIDERS: ADMIT Internal Medicine; ATTEND Internal Medicine
DX: K72.00 Acute and subacute hepatic failure without coma (principal); D61.818 Other pancytopenia; K76.6 Portal hypertension; N17.9 Acute kidney failure, unspecified; R18.8 Other ascites; D69.59 Other secondary thrombocytopenia; E11.22 Type 2 diabetes mellitus with diabetic chronic kidney disease; K74.60 Unspecified cirrhosis of liver; K75.81 Nonalcoholic steatohepatitis (NASH); N18.3 Chronic kidney disease, stage 3 (moderate); Z20.828 Contact with and (suspected) exposure to other viral communicable diseases; E87.6 Hypokalemia; F32.9 Major depressive disorder, single episode, unspecified; F41.9 Anxiety disorder, unspecified; G89.29 Other chronic pain; I12.9 Hypertensive chronic kidney disease with stage 1 through stage 4 chronic kidney disease, or unspecified chronic kidney disease; I25.2 Old myocardial infarction; R19.7 Diarrhea, unspecified; K57.90 Diverticulosis of intestine, part unspecified, without perforation or abscess without bleeding; T47.3X5A Adverse effect of saline and osmotic laxatives, initial encounter; R74.8 Abnormal levels of other serum enzymes; R79.89 Other specified abnormal findings of blood chemistry; Z79.4 Long term (current) use of insulin; Z79.899 Other long term (current) drug therapy; Z79.891 Long term (current) use of opiate analgesic; Z79.2 Long term (current) use of antibiotics; Z88.5 Allergy status to narcotic agent; Z88.0 Allergy status to penicillin; Z88.8 Allergy status to other drugs, medicaments and biological substances; Z93.2 Ileostomy status; Z92.21 Personal history of antineoplastic chemotherapy; Z91.14 Patient's other noncompliance with medication regimen; Z90.710 Acquired absence of both cervix and uterus; Z87.891 Personal history of nicotine dependence; Z87.11 Personal history of peptic ulcer disease; Z85.05 Personal history of malignant neoplasm of liver; Z87.440 Personal history of urinary (tract) infections; Z86.14 Personal history of Methicillin resistant Staphylococcus aureus infection; Z90.49 Acquired absence of other specified parts of digestive tract; Z82.49 Family history of ischemic heart disease and other diseases of the circulatory system
CPT/HCPCS: 36415; 74022; 80053; 81001; 82140; 82150; 82550; 83605; 83690; 83735; 84484; 85025; 85027; 87635; 96361; 96374; 96375; 99285

== ENCOUNTER 2020-03-21 22:08 | Inpatient (IN) | payer MEDICARE, OTHER ==
[2020-03-21] MEDS ORDERED: SODIUM CHLORIDE 0.9% 1,000 ML IV STA (22:39)
[2020-03-21] MEDS ORDERED: ONDANSETRON 4 MG/2 ML VIAL IVP STA (22:39)
[2020-03-21] MEDS ORDERED: MORPHINE SULFATE 4 MG/ML SYRINGE IV STA (22:39)
--- NOTE | 2020-03-21 22:58 | ED ---
Abdominal Pain HPI - General Chief Complaint: Abdominal Pain Stated Complaint: abd pain Time Seen by Provider: 03/21/20 22:26 Source: patient, EMS - History of Present Illness Initial Comments: Patient is a 74-year-old female, with history of liver cancer, diabetes, hypertension, presenting to the emergency Department with complaints of abdominal pain that became more severe earlier today. She states she has been having intermittent abdominal pain but is generally controlled at home pain medication. Patient states at approximately noon today, the pain started to get worse and it is uncontrolled. She does take morphine tablets at home which she did approximate 4-5 hours prior to arrival. She also took a tablet of Zofran. She does admit to nausea, no vomiting. She is belching a lot. She's been having regular bowel movements, no urinary complaints. She denies fever, chills. She denies chest pain, short of breath, cough. She has no other complaints at this time. Upon arrival to the ER, her vitals are stable. - Related Data Home Medications Medication Instructions Recorded Confirmed Sucralfate [Carafate] 1 gm PO QID 10/23/18 03/08/20 Cholecalciferol [Vitamin D3 (25 4,000 unit PO DAILY 01/16/19 03/08/20 Mcg = 1000 Iu)] Ferrous Sulfate [Iron (65 MG 325 mg PO BID 01/31/19 03/08/20 Elemental)] buPROPion HCL [Wellbutrin SR] 150 mg PO DAILY 06/12/19 03/08/20 Spironolactone [Aldactone] 25 mg PO DAILY 11/25/19 03/08/20 Dicyclomine [Bentyl] 20 mg PO QID 01/04/20 03/08/20 Metoprolol Tartrate [Lopressor] 6.25 mg PO DAILY 02/03/20 03/08/20 Omeprazole Magnesium [PriLOSEC OTC] 20 mg PO BID 02/03/20 03/08/20 Ondansetron Odt [Zofran ODT] 8 mg PO DAILY 02/03/20 03/08/20 Previous Rx's Medication Instructions Recorded Torsemide [Demadex] 20 mg PO DAILY tab 11/21/19 Insulin NPH Human Isophane 15 unit SQ BID #0 03/05/20 [humuLIN N] Lactulose [Cephulac] 30 gm PO TID #1000 ml 03/05/20 Rifaximin [Xifaxan] 550 mg PO BID #60 tablet 03/05/20 Morphine Sulfate ER [Ms Contin] 15 mg PO Q12HR #60 tablet 03/14/20 Morphine Sulfate Ir [MSIR] 15 mg PO Q8H PRN #30 tab 03/14/20 clonazePAM [KlonoPIN] 0.5 mg PO BID PRN 30 Days #30 tab 03/14/20 Allergies Allergy/AdvReac Type Severity Reaction Status Date / Time amlodipine Allergy Rash/Hives Verified 03/21/20 22:23 oxycodone Allergy Rash/Hives Verified 03/21/20 22:23 Penicillins Allergy Rash/Hives Verified 03/21/20 22:23 hydromorphone [From Dilaudid] AdvReac Mild tactile Verified 03/21/20 22:23 disturbance GREG Inhibitors AdvReac Cough Verified 03/21/20 22:23 sodium dodecyclbenzene Allergy Rash/Hives Uncoded 03/04/20 12:14 sulfonate Review of Systems ROS Statement: Those systems with pertinent positive or pertinent negative responses have been documented in the HPI. ROS Other: All systems not noted in ROS Statement are negative. Past Medical History Past Medical History: Cancer, Diabetes Mellitus, Hypertension, Liver Disease, Myocardial Infarction ([place]), Renal Disease Additional Past Medical History / Comment(s): Hepatocellular liver cancer with chemo immobilization-last time being 2017, nonalcoholic liver cirrhosis, chronic pancytopenia, chronic elevated ammonia levels, hepatic encephalopathy, chronic elevated LFTs, chronic abdominal pain, stomach ulcer, diverticular disease with ileostomy, IDDM type II, iron anemia, CKD stage III, nonsustained vtach, UTI, high ammonia levels, multi ascities with paracentesis, Last Myocardial Infarction Date:: unk History of Any Multi-Drug Resistant Organisms: MRSA, VRE Date of last positivie culture/infection: 07/22/19- VRE; 11/10/19-MRSA MDRO Source:: Urine VRE/ SPUTUM MRSA Past Surgical History: Appendectomy, Bowel Resection, Section, Cholecystectomy, Hysterectomy, Tonsillectomy Additional Past Surgical History / Comment(s): Chemo immobilizations, liver biopsies, paracentesis, bowel resection d/t diverticulitis/ileostomy, R rotator cuff repair, carpal tunnel release-laterality unknown, multi paracentesis, Past Anesthesia/Blood Transfusion Reactions: No Reported Reaction Past Psychological History: Anxiety, Depression Smoking Status: Former smoker Past Alcohol Use History: None Reported Past Drug Use History: None Reported - Past Family History Mother History Unknown: Yes Family Medical History: Congestive Heart Failure (CHF) Additional Family Medical History / Comment(s): Mother is 94 yrs old. Father Family Medical History: Chest Pain / Angina Additional Family Medical History / Comment(s): Father is . General Exam - General Exam Comments Initial Comments: GENERAL: In mild distress secondary to pain. HEAD: Atraumatic, normocephalic. EYES: Pupils equal round and reactive to light, extraocular movements intact, sclera anicteric, conjunctiva are normal. ENT: TMs normal, nares patent, oropharynx clear without exudates. Moist mucous membranes. NECK: Normal range of motion, supple without lymphadenopathy or JVD. LUNGS: Breath sounds clear to auscultation bilaterally and equal. No wheezes rales or rhonchi. HEART: Regular rate and rhythm without murmurs, rubs or gallops. ABDOMEN: Tender to palpation in the entire left side of her abdomen, with some extension into the umbilicus and right side of abdomen. Colostomy bag present. Nor moactive bowel sounds. : Deferred EXTREMITIES: Normal range of motion, no pitting or edema. No clubbing or cyanosis. NEUROLOGICAL: Normal speech, normal gait. PSYCH: Normal mood, normal affect. SKIN: Warm, Dry, normal turgor, no rashes or lesions noted. Course Vital Signs 03/21/20 03/21/20 22:13 23:00 Temperature 97.4 F L Pulse Rate 67 77 Respiratory 18 18 Rate Blood Pressure 126/75 125/65 O2 Sat by Pulse 97 97 Oximetry Medical Decision Making - Medical Decision Making Patient 74-year-old female with history of liver cancer, presenting for abdom inal pain, nausea and increasing since noon today. She did take a tablet of morphine and Zofran a few hours prior to arrival. Vitals are stable. Labs reveal elevated kidney function with BUN 30, creatinine 1.50, ammonia is 80. Urine shows no signs of infection. She was given pain control, with only mild improvement in her symptoms. Patient will be admitted for intractable abdominal pain, nausea, vomiting. Dr. Duncan is accepting, with GI consult. Case discussed with Dr. Crawford. - Lab Data Result diagrams: 03/21/20 22:35 03/21/20 22:35 Lab Results 03/21/20 03/21/20 03/21/20 Range/Units 22:35 22:35 22:35 WBC 5.1 (3.8-10.6) k/uL RBC 3.39 L (3.80-5.40) m/uL Hgb 11.7 (11.4-16.0) gm/dL Hct 36.1 (34.0-46.0) % MCV 106.4 H D (80.0-100.0) fL MCH 34.5 (25.0-35.0) pg MCHC 32.4 (31.0-37.0) g/dL RDW 14.8 (11.5-15.5) % Plt Count 67 L (150-450) k/uL Neutrophils % 75 % Lymphocytes % 13 % Monocytes % 6 % Eosinophils % 3 % Basophils % 0 % Neutrophils # 3.8 (1.3-7.7) k/uL Lymphocytes # 0.7 L (1.0-4.8) k/uL Monocytes # 0.3 (0-1.0) k/uL Eosinophils # 0.2 (0-0.7) k/uL Basophils # 0.0 (0-0.2) k/uL Manual Slide Review Performed Macrocytosis Moderate PT 13.1 H (9.0-12.0) sec INR 1.3 H (<1.2) APTT 25.9 (22.0-30.0) sec Sodium 133 L (137-145) mmol/L Potassium 3.7 (3.5-5.1) mmol/L Chloride 104 (98-107) mmol/L Carbon Dioxide 20 L (22-30) mmol/L Anion Gap 9 mmol/L BUN 30 H (7-17) mg/dL Creatinine 1.50 H (0.52-1.04) mg/dL Est GFR (CKD-EPI)AfAm 40 (>60 ml/min/1.73 sqM) Est GFR (CKD-EPI)NonAf 35 (>60 ml/min/1.73 sqM) Glucose 84 (74-99) mg/dL Plasma Lactic Acid Carlos (0.7-2.0) mmol/L Calcium 8.5 (8.4-10.2) mg/dL Total Bilirubin 2.6 H (0.2-1.3) mg/dL AST 75 H (14-36) U/L ALT 43 H (4-34) U/L Alkaline Phosphatase 367 H (38-126) U/L Ammonia (<30) umol/L Total Protein 7.0 (6.3-8.2) g/dL Albumin 2.8 L (3.5-5.0) g/dL Amylase 48 (30-110) U/L Lipase 23 (23-300) U/L Urine Color Urine Appearance (Clear) Urine pH (5.0-8.0) Ur Specific [place] (1.001-1.035) Urine Protein (Negative) Urine Glucose (UA) (Negative) Urine Ketones (Negative) Urine Blood (Negative) Urine Nitrite (Negative) Urine Bilirubin (Negative) Urine Urobilinogen (<2.0) mg/dL Ur Leukocyte Esterase (Negative) Urine RBC (0-5) /hpf Urine WBC (0-5) /hpf Ur Squamous Epith Cells (0-4) /hpf Urine Bacteria (None) /hpf Hyaline Casts (0-2) /lpf Urine Mucus (None) /hpf 03/21/20 03/21/20 Range/Units 22:35 23:40 WBC (3.8-10.6) k/uL RBC (3.80-5.40) m/uL Hgb (11.4-16.0) gm/dL Hct (34.0-46.0) % MCV (80.0-100.0) fL MCH (25.0-35.0) pg MCHC (31.0-37.0) g/dL RDW (11.5-15.5) % Plt Count (150-450) k/uL Neutrophils % % Lymphocytes % % Monocytes % % Eosinophils % % Basophils % % Neutrophils # (1.3-7.7) k/uL Lymphocytes # (1.0-4.8) k/uL Monocytes # (0-1.0) k/uL Eosinophils # (0-0.7) k/uL Basophils # (0-0.2) k/uL Manual Slide Review Macrocytosis PT (9.0-12.0) sec INR (<1.2) APTT (22.0-30.0) sec Sodium (137-145) mmol/L Potassium (3.5-5.1) mmol/L Chloride (98-107) mmol/L Carbon Dioxide (22-30) mmol/L Anion Gap mmol/L BUN (7-17) mg/dL Creatinine (0.52-1.04) mg/dL Est GFR (CKD-EPI)AfAm (>60 ml/min/1.73 sqM) Est GFR (CKD-EPI)NonAf (>60 ml/min/1.73 sqM) Glucose (74-99) mg/dL Plasma Lactic Acid Carlos 1.1 (0.7-2.0) mmol/L Calcium (8.4-10.2) mg/dL Total Bilirubin (0.2-1.3) mg/dL AST (14-36) U/L ALT (4-34) U/L Alkaline Phosphatase (38-126) U/L Ammonia 80 H (<30) umol/L Total Protein (6.3-8.2) g/dL Albumin (3.5-5.0) g/dL Amylase (30-110) U/L Lipase (23-300) U/L Urine Color Yellow Urine Appearance Clear (Clear) Urine pH 5.0 (5.0-8.0) Ur Specific [place] 1.008 (1.001-1.035) Urine Protein Negative (Negative) Urine Glucose (UA) Negative (Negative) Urine Ketones Negative (Negative) Urine Blood Trace H (Negative) Urine Nitrite Negative (Negative) Urine Bilirubin Negative (Negative) Urine Urobilinogen <2.0 (<2.0) mg/dL Ur Leukocyte Esterase Trace H (Negative) Urine RBC 1 (0-5) /hpf Urine WBC 1 (0-5) /hpf Ur Squamous Epith Cells 1 (0-4) /hpf Urine Bacteria Rare H (None) /hpf Hyaline Casts 1 (0-2) /lpf Urine Mucus Rare H (None) /hpf Disposition Clinical Impression: Intractable pain, High risk for readmission, Nausea and vomiting, Hyperammonemia, MORENA (acute kidney injury) Disposition: ADMITTED IP TO THIS HOSP Condition: Good Is patient prescribed a controlled substance at d/c from ED?: No Referrals: Gilma Martinez MD [Primary Care Provider] - 1-2 days Decision Date: 03/22/20 Decision Time: 00:45
[2020-03-21 23:08] LABS: Basophils % (A) 0 %; Eosinophils # (A) 0.2 k/uL (0-0.7); Eosinophils % (A) 3 %; HCT 36.1 % (34.0-46.0); HGB 11.7 gm/dL (11.4-16.0); Lymphocytes # (A) 0.7 k/uL (1.0-4.8); Lymphocytes % (A) 13 %; MCH 34.5 pg (25.0-35.0); MCHC 32.4 g/dL (31.0-37.0); Macrocytosis Moderate; Mean Platelet Volume 11.4; Monocytes # (A) 0.3 k/uL (0-1.0); Monocytes % (A) 6 %; Neutrophils # (A) 3.8 k/uL (1.3-7.7); Neutrophils % (A) 75 %; RBC 3.39 m/uL (3.80-5.40); RDW 14.8 % (11.5-15.5); WBC 5.1 k/uL (3.8-10.6)
[2020-03-21 23:09] LABS: Lactic Acid, Venous 1.1 mmol/L (0.7-2.0)
[2020-03-21 23:10] LABS: Albumin 2.8 g/dL (3.5-5.0); Calcium 8.5 mg/dL (8.4-10.2); INR 1.3 (<1.2); Partial Thromboplastin Time 25.9 sec (22.0-30.0); Potassium 3.7 mmol/L (3.5-5.1); Prothrombin Time 13.1 sec (9.0-12.0); Total Bilirubin 2.6 mg/dL (0.2-1.3)
--- NOTE | 2020-03-21 23:22 | XR ---
EXAMINATION TYPE: XR KUB DATE OF EXAM: 03/21/2020 11:17 PM CLINICAL HISTORY: History of hepatocellular carcinoma presents with abdominal pain TECHNIQUE: Two supine KUB images of the abdomen are obtained. COMPARISON: CT abdomen and pelvis January 24, 2010. Abdominal x-ray October 01, 2019. FINDINGS: Some paucity of bowel gas. Visualized gas seen in nondistended small and large bowel loops. Single slightly prominent gas-filled small bowel loop left upper pelvis. Multilevel spurring in the thoracolumbar spine. Surgical clips and coils right upper quadrant redemonstrated. Mild to moderate d iffuse subcutaneous edema in the flanks. Visualized lung bases are clear. IMPRESSION: Overall nonspecific but favor nonobstructive bowel gas pattern.
[2020-03-21 23:40] LABS: Platelet Count 67 k/uL (150-450)
[2020-03-21] MEDS ORDERED: HYDROmorphone 1 MG/ML 1 ML SYRINGE IVP STA (23:46)
[2020-03-21 23:55] LABS: Appearance,Urine Clear (Clear); Bacteria,Urine Rare /hpf; Bilirubin,Urine Negative (Negative); Blood,Urine Trace (Negative); Color,Urine Yellow; Glucose,Urine (UA) Negative (Negative); Hyaline Casts,Urine 1 /lpf (0-2); Ketones,Urine Negative (Negative); Leukocyte Esterase,Urine Trace (Negative); Mucus,Urine Rare /hpf; Nitrite,Urine Negative (Negative); Protein,Urine Negative (Negative); RBC,Urine 1 /hpf (0-5); Specific Gravity,Urine 1.008 (1.001-1.035); Squamous Epithelial Cell,Urine 1 /hpf (0-4); Urobilinogen,Urine <2.0 mg/dL (<2.0); WBC,Urine 1 /hpf (0-5)
[2020-03-22] MEDS ORDERED: MORPHINE SULFATE 4 MG/ML SYRINGE IV PRN (00:38)
[2020-03-22] MEDS ORDERED: HYDROcodone/APAP 5-325MG 1 EACH TAB PO PRN (00:38)
[2020-03-22] MEDS ORDERED: NALOXONE 0.4 MG/ML 1 ML VIAL IV PRN (00:38)
[2020-03-22] MEDS: SODIUM CHLORIDE 0.9% 1,000 ML IV SCH ×2 (01:36→17:40)
[2020-03-22] MEDS ORDERED: LACTULOSE 20 GM/30 ML CUP PO ONE (02:37)
--- NOTE | 2020-03-22 02:39 | P.HPIM ---
History of Present Illness H&P Date: 03/22/20 The patient is a 74-year-old female well-known to our practice, with a PMH of hepatocellular carcinoma with enlargement of mass since November 2019, nonalcoholic steatohepatitis, cirrhosis, type II DM, and CKD with multiple hospitalizations for hepatic encephalopathy and intractable nausea and vomiting with abdominal pain presented to the ED with complaints of 9/10 diffuse abdominal pain, nonradiating, with intractable nausea and vomiting. The patient notes that she has been attempting to contact her oncologist, though has been unable to make an appointment. She notes her pain started 2-3 days ago, and due to her nausea she has been unable to eat or drink much. She underwent an extensive evaluation in the emergency room with abdominal x-rays showing nonobstructive bowel gas pattern but otherwise unremarkable. Laboratory evaluation revealed ammonia 80, WBC count 5.1, hemoglobin 11.7, platelets 67, sodium 133, INR 1.3, potassium 3.7, CO2 20, BUN 30, creatinine 1.5, total bilirubin 2.6, AST 75, ALT 43, alk phos 367, with albumin 2.8. Review of Systems Pertinent positives and negatives as discussed in HPI, a complete review of systems was performed and all other systems are negative. Past Medical History Past Medical History: Cancer, Diabetes Mellitus, Hypertension, Liver Disease, Myocardial Infarction ([place]), Renal Disease Additional Past Medical History / Comment(s): Hepatocellular liver cancer with chemo immobilization-last time being 2017, nonalcoholic liver cirrhosis, chronic pancytopenia, chronic elevated ammonia levels, hepatic encephalopathy, chronic elevated LFTs, chronic abdominal pain, stomach ulcer, diverticular disease with ileostomy, IDDM type II, iron anemia, CKD stage III, nonsustained vtach, UTI, high ammonia levels, multi ascities with paracentesis, Last Myocardial Infarction Date:: unk History of Any Multi-Drug Resistant Organisms: MRSA, VRE Date of last positivie culture/infection: 07/22/19- VRE; 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 . Retired. No experience. No animal exposures Smoking Status: Never smoker Past Alcohol Use History: None Reported Additional Past Alcohol Use History / Comment(s): started smoking 1962 and quit 1965 Past Drug Use History: None Reported - Past Family History Mother History Unknown: Yes Family Medical History: Congestive Heart Failure (CHF) Additional Family Medical History / Comment(s): Mother is 94 yrs old. Father Family Medical History: Chest Pain / Angina Additional Family Medical History / Comment(s): Father is . Medications and Allergies Home Medications Medication Instructions Recorded Confirmed Type Sucralfate [Carafate] 1 gm PO QID 10/23/18 03/08/20 History Cholecalciferol [Vitamin D3 (25 4,000 unit PO DAILY 01/16/19 03/08/20 History Mcg = 1000 Iu)] Ferrous Sulfate [Iron (65 MG 325 mg PO BID 01/31/19 03/08/20 History Elemental)] buPROPion HCL [Wellbutrin SR] 150 mg PO DAILY 06/12/19 03/08/20 History Torsemide [Demadex] 20 mg PO DAILY tab 11/21/19 03/08/20 Rx Spironolactone [Aldactone] 25 mg PO DAILY 11/25/19 03/08/20 History Dicyclomine [Bentyl] 20 mg PO QID 01/04/20 03/08/20 History Metoprolol Tartrate [Lopressor] 6.25 mg PO DAILY 02/03/20 03/08/20 History Omeprazole Magnesium [PriLOSEC OTC] 20 mg PO BID 02/03/20 03/08/20 History Ondansetron Odt [Zofran ODT] 8 mg PO DAILY 02/03/20 03/08/20 History Insulin NPH Human Isophane 15 unit SQ BID #0 03/05/20 03/08/20 Rx [humuLIN N] Lactulose [Cephulac] 30 gm PO TID #1000 ml 03/05/20 03/08/20 Rx Rifaximin [Xifaxan] 550 mg PO BID #60 tablet 03/05/20 03/08/20 Rx Morphine Sulfate ER [Ms Contin] 15 mg PO Q12HR #60 tablet 03/14/20 Rx Morphine Sulfate Ir [MSIR] 15 mg PO Q8H PRN #30 tab 03/14/20 Rx clonazePAM [KlonoPIN] 0.5 mg PO BID PRN 30 Days #30 tab 03/14/20 Rx Allergies Allergy/AdvReac Type Severity Reaction Status Date / Time amlodipine Allergy Rash/Hives Verified 03/21/20 22:23 oxycodone Allergy Rash/Hives Verified 03/21/20 22:23 Penicillins Allergy Rash/Hives Verified 03/21/20 22:23 hydromorphone [From Dilaudid] AdvReac Mild tactile Verified 03/21/20 22:23 disturbance GREG Inhibitors AdvReac Cough Verified 03/21/20 22:23 sodium dodecyclbenzene Allergy Rash/Hives Uncoded 03/04/20 12:14 sulfonate Physical Exam Vitals: Vital Signs Temp Pulse Resp BP Pulse Ox 03/22/20 01:40 97.9 F 78 18 124/65 97 03/22/20 00:30 67 16 114/61 97 03/21/20 23:00 77 18 125/65 97 03/21/20 22:13 97.4 F L 67 18 126/75 97 Intake and Output 03/21/20 03/21/20 03/22/20 14:59 22:59 06:59 Other: Weight 79.379 kg 86 kg General: Chronically ill-appearing elderly female in mild distress, normal weight Derm: no unusual rashes/lesions no unusual ecchymoses, warm, dry Head: atraumatic, normocephalic, symmetric Eyes: EOMI, no lid lag, anicteric sclera, pupils equal round reactive to light ENT: Nose and ears atraumatic, no thrush, no pharyngeal erythema Neck: No thyromegaly, no cervical lymphadenopathy, trachea midline, supple Mouth: no lip lesion, mucus membranes moist Cardiovascular: S1S2 reg, no murmur, positive posterior tibial pulse bilateral, no edema, capillary refill less than 2 seconds Lungs: CTA bilateral, no rhonchi, no rales , no accessory muscle use Abdominal: soft, diffuse mild abdominal tenderness without guarding, colostomy bag in place no appreciable organomegaly Ext: no gross muscle atrophy, muscle strength 4 out of 5 in all 4 extremities grossly, no contractures Neuro: CN II-XI grossly intact, light touch intact all 4 extremities, finger to nose within normal limits, no asterixis Psych: Alert, oriented, appropriate affect Results CBC & Chem 7: 03/21/20 22:35 03/21/20 22:35 Labs: Abnormal Lab Results - Last 24 Hours (Table) 03/21/20 03/21/20 03/21/20 Range/Units 22:35 22:35 22:35 RBC 3.39 L (3.80-5.40) m/uL MCV 106.4 H D (80.0-100.0) fL Plt Count 67 L (150-450) k/uL Lymphocytes # 0.7 L (1.0-4.8) k/uL PT 13.1 H (9.0-12.0) sec INR 1.3 H (<1.2) Sodium 133 L (137-145) mmol/L Carbon Dioxide 20 L (22-30) mmol/L BUN 30 H (7-17) mg/dL Creatinine 1.50 H (0.52-1.04) mg/dL Total Bilirubin 2.6 H (0.2-1.3) mg/dL AST 75 H (14-36) U/L ALT 43 H (4-34) U/L Alkaline Phosphatase 367 H (38-126) U/L Ammonia (<30) umol/L Albumin 2.8 L (3.5-5.0) g/dL Urine Blood (Negative) Ur Leukocyte Esterase (Negative) Urine Bacteria (None) /hpf Urine Mucus (None) /hpf 03/21/20 03/21/20 Range/Units 22:35 23:40 RBC (3.80-5.40) m/uL MCV (80.0-100.0) fL Plt Count (150-450) k/uL Lymphocytes # (1.0-4.8) k/uL PT (9.0-12.0) sec INR (<1.2) Sodium (137-145) mmol/L Carbon Dioxide (22-30) mmol/L BUN (7-17) mg/dL Creatinine (0.52-1.04) mg/dL Total Bilirubin (0.2-1.3) mg/dL AST (14-36) U/L ALT (4-34) U/L Alkaline Phosphatase (38-126) U/L Ammonia 80 H (<30) umol/L Albumin (3.5-5.0) g/dL Urine Blood Trace H (Negative) Ur Leukocyte Esterase Trace H (Negative) Urine Bacteria Rare H (None) /hpf Urine Mucus Rare H (None) /hpf Thrombosis Risk Factor Assmnt - Choose All That Apply Any of the Below Risk Factors Present?: No Each Risk Factor Represents 2 Points: Age 61-74 years Other congenital or acquired thrombophilia - If yes, enter type in comment: No Thrombosis Risk Factor Assessment Total Risk Factor Score: 2 Thrombosis Risk Factor Assessment Level: Low Risk Assessment and Plan Plan: Abdominal pain with intractable nausea and vomiting -GI consult -No clinical suspicion for SBP at this time -Hold oral medications -Dilaudid prn -Antiemetics Hepatic encephalopathy in setting of cirrhosis -Continue with home lactulose and rifaximin -Continue with Aldactone and torsemide -Needs to f/u with outpatient oncologist Thrombocytopenia, at baseline -Monitor CBC Chronic kidney disease stage III -At baseline Type II DM -STEVO with FS DVT prophylaxis -IPCDs The patient is admitted with an anticipated greater than 2 midnight stay for evaluation of abdominal pain CODE STATUS: Full Code Discussed with: Patient Anticipated discharge date: 03/25/[address]: Home A total of 45 minutes was spent on the care of this complex patient more than 50% of the time was spent in counseling and care coordination.
[2020-03-22] MEDS: HYDROmorphone 0.5 MG/0.5 ML SYRINGE IVP PRN ×3 (05:37→15:26)
[2020-03-22 07:26] LABS: MCV 106.4 fL (80.0-100.0)
[2020-03-22 07:45] LABS: Albumin 2.3 g/dL (3.5-5.0); HCT 35.5 % (34.0-46.0); HGB 11.3 gm/dL (11.4-16.0); MCH 34.7 pg (25.0-35.0); MCV 108.5 fL (80.0-100.0); Macrocytosis Marked; Mean Platelet Volume 11.2; Potassium 3.6 mmol/L (3.5-5.1); RBC 3.27 m/uL (3.80-5.40); RDW 14.8 % (11.5-15.5); Total Bilirubin 3.2 mg/dL (0.2-1.3); Total Protein 6.1 g/dL (6.3-8.2); WBC 4.9 k/uL (3.8-10.6)
[2020-03-22 07:51] LABS: Platelet Count 55 k/uL (150-450)
[2020-03-22 08:14] LABS: Glucose,Whole Blood 197 mg/dL (75-99)
[2020-03-22] MEDS: INSULIN ASPART (NovoLOG) 100 UNIT/ML VIAL SQ SCH ×3 (08:19→17:40)
[2020-03-22] MEDS: LACTULOSE 20 GM/30 ML CUP PO SCH ×3 (08:40→22:17)
[2020-03-22] MEDS ORDERED: LACTULOSE 20 GM/30 ML CUP PO PRN (10:47)
[2020-03-22] MEDS ORDERED: MORPHINE SULFATE IR 15 MG TABLET PO PRN (10:47)
[2020-03-22] MEDS ORDERED: SUCRALFATE 1 GM TAB PO PRN (10:47)
--- NOTE | 2020-03-22 10:54 | P.PN ---
Progress Note - Text Patient was admitted this morning. Apparently she has multiple hospitalizations within the recent past. She has history of hepatocellular carcinoma, underlying liver cirrhosis, and chronic kidney disease. Patient was seen and evaluated by me today. She is awake and alert. She is still complaining of a lot of abdominal pain. She denies nausea or vomiting this morning. She has a colostomy with a large ventral hernia. There is tenderness to palpation throughout the abdomen. X-ray in the ER showed nonobstructive pattern. She is awaiting GI evaluation. I discussed with the patient her current clinical condition and poor prognosis. She said that she would like to explore comfort measures and hospice. I will consult hospice for further evaluation. We will continue supportive care in the meantime. Pain control. Repeat lab work in the morning.
[2020-03-22 11:58] LABS: Glucose,Whole Blood 200 mg/dL (75-99)
[2020-03-22 14:13] LABS: Hemoglobin A1C 5.3 % (4.0-6.0)
[2020-03-22] MEDS: DICYCLOMINE 20 MG TAB PO SCH ×3 (15:19→22:16)
[2020-03-22] MEDS: clonazePAM 0.5 MG TAB PO PRN (15:26)
[2020-03-22] MEDS: ONDANSETRON 4 MG/2 ML VIAL IVP PRN (15:26)
[2020-03-22 16:50] LABS: Glucose,Whole Blood 170 mg/dL (75-99)
[2020-03-22 22:13] LABS: Glucose,Whole Blood 162 mg/dL (75-99)
[2020-03-22] MEDS: MORPHINE SULFATE ER 15 MG TABLET PO SCH (22:15)
[2020-03-22] MEDS: RIFAXIMIN 550 MG TABLET PO SCH (22:16)
[2020-03-23] MEDS: ONDANSETRON 4 MG/2 ML VIAL IVP PRN ×2 (00:46→08:15)
[2020-03-23] MEDS: HYDROmorphone 0.5 MG/0.5 ML SYRINGE IVP PRN ×4 (00:46→20:34)
[2020-03-23 07:21] LABS: Glucose,Whole Blood 148 mg/dL (75-99)
[2020-03-23] MEDS: PANTOPRAZOLE 40 MG TABLET PO SCH ×2 (08:02→12:15)
[2020-03-23] MEDS: RIFAXIMIN 550 MG TABLET PO SCH ×3 (08:02→20:46)
[2020-03-23] MEDS: buPROPion SR 150 MG TABLET.ER PO SCH ×2 (08:02→12:15)
[2020-03-23] MEDS: METOPROLOL TARTRATE 12.5 MG TAB PO SCH ×2 (08:02→12:15)
[2020-03-23] MEDS: TORSEMIDE 20 MG TAB PO SCH ×2 (08:02→12:16)
[2020-03-23] MEDS: SPIRONOLACTONE 25 MG TAB PO SCH ×2 (08:02→12:16)
[2020-03-23] MEDS: DICYCLOMINE 20 MG TAB PO SCH ×5 (08:02→20:46)
[2020-03-23] MEDS: CHOLECALCIFEROL 1,000 UNIT TAB PO SCH ×2 (08:03→12:15)
[2020-03-23] MEDS: LACTULOSE 20 GM/30 ML CUP PO SCH ×4 (08:04→20:45)
--- NOTE | 2020-03-23 08:19 | P.CONS ---
History of Present Illness - Reason for Consult Consult date: 03/22/20 Abdominal pain, decompensated cirrhosis Requesting physician: Jaden Jesus - Chief Complaint Abdominal pain - History of Present Illness 74-year-old female with a past medical history significant for hepatocellular carcinoma status post chemoembolization in the past and with recent MRI imaging earlier in the year showing progression of disease, recurrent ascites secondary to decompensated nonalcoholic liver cirrhosis with portal hypertension, hepatic encephalopathy, diverticular disease complicated in the past and requiring surgical intervention with colostomy formation, chronic kidney disease, or abdominal pain who presents back to the hospital after recent admission with complaints of abdominal pain. The patient has a history of noncompliance with medical management and has presented on numerous occasions for encephalopathy, abdominal pain and abdominal distention. On current presentation the patient is reporting worsening abdominal pain prior to presentation. The patient who normally has to empty her ostomy bag a few times a day reports she's had decreased output from the ostomy over the past 2 days. The output she is noting is hard and small. She does report compliance with lactulose therapy after discharge. Last EGD on 07/2019 for abdominal pain was significant only for gastritis. On current presentation and laboratory evaluation significant for WBC 51, hemoglobin 11.7, platelet count 67,000, INR 1.3. Review of Systems REVIEW OF SYSTEMS: CONSTITUTIONAL: Denies any fevers, chills, weight change or fatigue. CARDIOVASCULAR: Denies any chest pain, palpitations high or low blood pressures RESPIRATORY: Denies any shortness of breath, hemoptysis or cough. GENITOURINARY: No dysuria or hematuria. MUSCULOSKELETAL: No weakness reported. SKIN: Denies any new rashes or lesions, jaundice or pallor. PSYCHIATRIC: Denies any depression or anxiety. NEUROLOGY: Denies headache, denies any new focal deficits. EARS/NOSE/THROAT: No recent hearing change, congestion, nasal discharge or sore throat. EYES: No pain in eyes, discharge or change in vision. GASTROINTESTINAL: As per HPI. Past Medical History Past Medical History: Cancer, Diabetes Mellitus, Hypertension, Liver Disease, Myocardial Infarction ([place]), Renal Disease Additional Past Medical History / Comment(s): Hepatocellular liver cancer with chemo immobilization-last time being 2017, nonalcoholic liver cirrhosis, chronic pancytopenia, chronic elevated ammonia levels, hepatic encephalopathy, chronic elevated LFTs, chronic abdominal pain, stomach ulcer, diverticular disease with ileostomy, IDDM type II, iron anemia, CKD stage III, nonsustained vtach, UTI, high ammonia levels, multi ascities with paracentesis, Last Myocardial Infarction Date:: unk History of Any Multi-Drug Resistant Organisms: MRSA, 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 . Retired. No experience. No animal exposures Smoking Status: Never smoker Past Alcohol Use History: None Reported Additional Past Alcohol Use History / Comment(s): started smoking 1962 and quit 1965 Past Drug Use History: None Reported - Past Family History Mother History Unknown: Yes Family Medical History: Congestive Heart Failure (CHF) Additional Family Medical History / Comment(s): Mother is 94 yrs old. Father Family Medical History: Chest Pain / Angina Additional Family Medical History / Comment(s): Father is . Medications and Allergies Home Medications Medication Instructions Recorded Confirmed Type Sucralfate [Carafate] 1 gm PO QID PRN 10/23/18 03/22/20 History Cholecalciferol [Vitamin D3 (25 4,000 unit PO DAILY 01/16/19 03/22/20 History Mcg = 1000 Iu)] Ferrous Sulfate [Iron (65 MG 325 mg PO BID 01/31/19 03/22/20 History Elemental)] buPROPion HCL [Wellbutrin SR] 150 mg PO DAILY 06/12/19 03/22/20 History Torsemide [Demadex] 20 mg PO DAILY tab 11/21/19 03/22/20 Rx Spironolactone [Aldactone] 25 mg PO DAILY 11/25/19 03/22/20 History Dicyclomine [Bentyl] 20 mg PO QID 01/04/20 03/22/20 History Metoprolol Tartrate [Lopressor] 6.25 mg PO DAILY 02/03/20 03/22/20 History Omeprazole Magnesium [PriLOSEC OTC] 20 mg PO BID 02/03/20 03/22/20 History Ondansetron Odt [Zofran ODT] 8 mg PO Q8H PRN 02/03/20 03/22/20 History Insulin NPH Human Isophane 15 unit SQ BID #0 03/05/20 03/22/20 Rx [humuLIN N] Rifaximin [Xifaxan] 550 mg PO BID #60 tablet 03/05/20 03/22/20 Rx Morphine Sulfate ER [Ms Contin] 15 mg PO Q12HR #60 tablet 03/14/20 03/22/20 Rx Morphine Sulfate Ir [MSIR] 15 mg PO Q8H PRN #30 tab 03/14/20 03/22/20 Rx clonazePAM [KlonoPIN] 0.5 mg PO BID PRN 30 Days #30 tab 03/14/20 03/22/20 Rx Lactulose [Cephulac] 45 gm PO BID PRN 03/22/20 03/22/20 History Allergies Allergy/AdvReac Type Severity Reaction Status Date / Time amlodipine Allergy Rash/Hives Verified 03/22/20 08:15 oxycodone Allergy Rash/Hives Verified 03/22/20 08:15 Penicillins Allergy Rash/Hives Verified 03/22/20 08:15 hydromorphone [From Dilaudid] AdvReac Mild tactile Verified 03/22/20 08:15 disturbance GREG Inhibitors AdvReac Cough Verified 03/22/20 08:15 sodium dodecyclbenzene Allergy Rash/Hives Uncoded 03/22/20 08:16 sulfonate Physical Exam Vitals: Vital Signs Temp Pulse Resp BP Pulse Ox 03/23/20 07:48 98.2 F 79 16 131/71 98 03/22/20 21:00 98.3 F 73 115/67 97 03/22/20 20:10 98.5 F 68 114/56 99 03/22/20 16:25 98.1 F 68 16 118/61 100 03/22/20 16:00 54 L Intake and Output 03/22/20 03/23/20 03/23/20 22:59 06:59 14:59 Intake Total 450 Output Total 3300 Balance -2850 Intake: Oral 450 Output: Emesis 3300 Other: Voiding Method Toilet # Voids 1 2 # Emeses 1 On physical examination, patient appears comfortable in no apparent distress. HEAD: Normocephalic, atraumatic. EYES: No scleral icterus. No conjunctival injection. MOUTH: No lesions, tongue midline. NECK: Trachea midline, no gross abnormalities. CHEST: Clear to auscultation with no wheezing or rhonchi appreciated. HEART: Regular rate and rhythm. ABDOMEN: Soft, obese, ostomy intact with decreased output noted. Mildly tender to palpation diffusely across her abdomen. Bowel sounds are positive. No organomegaly. No guarding or rigidity. EXTREMITIES: No pedal edema. SKIN: No rashes, no jaundice. NEUROLOGIC: Alert and oriented x3. No focal deficits. Results CBC & Chem 7: 03/22/20 06:43 03/22/20 06:43 Labs: Abnormal Lab Results - Last 24 Hours (Table) 03/22/20 03/22/20 03/22/20 Range/Units 08:13 11:55 16:47 POC Glucose (mg/dL) 197 H 200 H 170 H (75-99) mg/dL 03/22/20 03/23/20 Range/Units 22:11 07:20 POC Glucose (mg/dL) 162 H 148 H (75-99) mg/dL Abdominal x-ray: report reviewed (Nonspecific bowel gas pattern on x-ray of the abdomen.) Assessment and Plan (1) Abdominal pain Narrative/Plan: 74-year-old female with multiple medical comorbidities including decompensated nonalcoholic cirrhosis of the liver, hepatocellular carcinoma, and recurrent hospitalizations for encephalopathy secondary to noncompliance, abdominal pain and ascites. On current presentation she comes to the hospital reporting decreased output from her ostomy. She does report compliance with lactulose after discharge but has had problems with noncompliance in the past. She is reporting diffuse abdominal pain. Suspicion is for possible decreased output and stool burden causing abdominal pain, patient has also had pain from a site is in the past, cannot rule out other etiology as cause of pain. X-ray performed in evaluation essentially negative. Current Visit: No Status: Acute Priority: High Code(s): R10.9 - UNSPECIFIED ABDOMINAL PAIN SNOMED Code(s): 27265513 (2) Chronic liver disease Current Visit: No Status: Acute Code(s): K76.9 - LIVER DISEASE, UNSPECIFIED SNOMED Code(s): 930264057 (3) Colostomy in place Current Visit: No Status: Acute Code(s): Z93.3 - COLOSTOMY STATUS SNOMED Code(s): 168036524 (4) Hepatic encephalopathy Current Visit: No Status: Acute Code(s): K72.90 - HEPATIC FAILURE, UNSPECIFIED WITHOUT COMA SNOMED Code(s): 60571905 (5) Portal hypertension Current Visit: No Status: Acute Code(s): K76.6 - PORTAL HYPERTENSION SNOMED Code(s): 16748913 (6) Cirrhosis of liver with ascites Current Visit: No Status: Chronic Code(s): K74.60 - UNSPECIFIED CIRRHOSIS OF LIVER; R18.8 - OTHER ASCITES SNOMED Code(s): 86850847 (7) Hepatocellular carcinoma Current Visit: No Status: Chronic Priority: Medium Code(s): C22.0 - LIVER CELL CARCINOMA SNOMED Code(s): 798893707 Plan: Supportive care Okay for diet as tolerated Continue lactulose and Xifaxan therapy Continue spironolactone and Lasix for diuresis X-ray abdomen ordered for tomorrow to assess stool burden Tap water enema ordered through ostomy due to concerns over possible constipation As per note from primary team hospice services consulted Thank you for allowing us to participate in the care of the patient we will continue to follow
--- NOTE | 2020-03-23 08:37 | XR ---
EXAMINATION TYPE: XR abdomen 1V , 2 VIEWS DATE OF EXAM ORDERED: 03/23/2020 HISTORY: abdominal pain,stool burden. COMPARISON: Previous study dated 03/21/2020. FINDINGS: The lung bases are clear. Within the abdomen, the gallbladder has been removed. There is significantly less stool within the co melissa. There is no evidence of obstruction or free air. No unusual calcifications are seen. IMPRESSION: IMPROVED STOOL BURDEN.
[2020-03-23] MEDS: INSULIN ASPART (NovoLOG) 100 UNIT/ML VIAL SQ SCH ×3 (08:45→17:22)
[2020-03-23 09:39] LABS: Basophils % (A) 0 %; Eosinophils # (A) 0.2 k/uL (0-0.7); Eosinophils % (A) 2 %; HCT 42.1 % (34.0-46.0); HGB 13.5 gm/dL (11.4-16.0); Lymphocytes % (A) 14 %; MCH 34.7 pg (25.0-35.0); MCHC 31.9 g/dL (31.0-37.0); MCV 108.6 fL (80.0-100.0); Macrocytosis Marked; Mean Platelet Volume 11.2; Monocytes # (A) 0.4 k/uL (0-1.0); Monocytes % (A) 6 %; Neutrophils # (A) 5.6 k/uL (1.3-7.7); Neutrophils % (A) 77 %; RBC 3.88 m/uL (3.80-5.40); RDW 14.7 % (11.5-15.5); WBC 7.2 k/uL (3.8-10.6)
[2020-03-23 09:47] LABS: Platelet Count 84 k/uL (150-450)
--- NOTE | 2020-03-23 10:36 | P.PN ---
Subjective Progress Note Date: 03/23/20 Principal diagnosis: Abdominal pain Patient continues to have abdominal pain. Patient denies chest pain, shortness of breath, fevers, or chills. Patient CODE STATUS is now DO NOT RESUSCITATE. Patient does not want to talk to hospice at this time she'll do so as an outpatient. The patient is a 74-year-old female well-known to our practice, with a PMH of hepatocellular carcinoma with enlargement of mass since November 2019, nonalcoholic steatohepatitis, cirrhosis, type II DM, and CKD with multiple hospitalizations for hepatic encephalopathy and intractable nausea and vomiting with abdominal pain presented to the ED with complaints of 9/10 diffuse abdominal pain, nonradiating, with intractable nausea and vomiting. The patient notes that she has been attempting to contact her oncologist, though has been unable to make an appointment. She notes her pain started 2-3 days ago, and due to her nausea she has been unable to eat or drink much. She underwent an extensive evaluation in the emergency room with abdominal x-rays showing nonobstructive bowel gas pattern but otherwise unremarkable. Laboratory evaluation revealed ammonia 80, WBC count 5.1, hemoglobin 11.7, platelets 67, sodium 133, INR 1.3, potassium 3.7, CO2 20, BUN 30, creatinine 1.5, total bilirubin 2.6, AST 75, ALT 43, alk phos 367, with albumin 2.8. Objective - Vital Signs Vital signs: Vital Signs Temp 98.2 F 03/23/20 07:48 Pulse 79 03/23/20 07:48 Resp 16 03/23/20 07:48 BP 131/71 03/23/20 07:48 Pulse Ox 98 03/23/20 07:48 Intake & Output 03/22/20 03/23/20 03/23/20 18:59 06:59 18:59 Intake Total 450 Output Total 3300 Balance -2850 Intake: Oral 450 Output: Emesis 3300 Other: Voiding Method Toilet # Voids 1 2 # Emeses 1 - Labs CBC & Chem 7: 03/23/20 08:17 03/22/20 06:43 Labs: Abnormal Lab Results - Last 24 Hours (Table) 03/22/20 03/22/20 03/22/20 Range/Units 11:55 16:47 22:11 MCV (80.0-100.0) fL Plt Count (150-450) k/uL Macrocytosis POC Glucose (mg/dL) 200 H 170 H 162 H (75-99) mg/dL Ammonia (<30) umol/L 03/23/20 03/23/20 03/23/20 Range/Units 07:20 08:17 08:17 MCV 108.6 H (80.0-100.0) fL Plt Count 84 L D (150-450) k/uL Macrocytosis Marked A POC Glucose (mg/dL) 148 H (75-99) mg/dL Ammonia 51 H (<30) umol/L Assessment and Plan Assessment: Abdominal pain with intractable nausea and vomiting -GI recommendations appreciated -No clinical suspicion for SBP at this time -Hold oral medications -Dilaudid prn -Antiemetics Hepatic encephalopathy in setting of cirrhosis improved -Continue with home lactulose and rifaximin -Continue with Aldactone and torsemide -Needs to f/u with outpatient oncologist Thrombocytopenia, at baseline -Monitor CBC Chronic kidney disease stage III -At baseline Type II DM -STEVO with FS DVT prophylaxis -IPCDs The patient is admitted with an anticipated greater than 2 midnight stay for e valuation of abdominal pain CODE STATUS: DO NOT RESUSCITATE Discussed with: Patient Anticipated discharge date: 03/25/[address]: Home A total of 30 minutes was spent on the care of this complex patient more than 50% of the time was spent in counseling and care coordination.
[2020-03-23 12:02] LABS: Glucose,Whole Blood 141 mg/dL (75-99)
[2020-03-23] MEDS: MORPHINE SULFATE ER 15 MG TABLET PO SCH ×3 (12:16→20:34)
[2020-03-23] MEDS: SODIUM CHLORIDE 0.9% 1,000 ML IV SCH (12:17)
[2020-03-23 17:06] LABS: Glucose,Whole Blood 135 mg/dL (75-99)
[2020-03-23] MEDS: clonazePAM 0.5 MG TAB PO PRN (17:33)
[2020-03-23 20:57] LABS: Glucose,Whole Blood 242 mg/dL (75-99)
[2020-03-24] MEDS: SODIUM CHLORIDE 0.9% 1,000 ML IV SCH (05:48)
[2020-03-24 06:56] LABS: Glucose,Whole Blood 97 mg/dL (75-99)
[2020-03-24] MEDS: INSULIN ASPART (NovoLOG) 100 UNIT/ML VIAL SQ SCH ×3 (07:23→17:01)
[2020-03-24] MEDS: HYDROmorphone 0.5 MG/0.5 ML SYRINGE IVP PRN ×4 (07:29→20:50)
[2020-03-24 08:09] LABS: Albumin 2.1 g/dL (3.5-5.0); Basophils % (A) 1 %; Calcium 7.9 mg/dL (8.4-10.2); Eosinophils # (A) 0.2 k/uL (0-0.7); Eosinophils % (A) 5 %; HCT 34.4 % (34.0-46.0); HGB 10.6 gm/dL (11.4-16.0); Lymphocytes # (A) 0.8 k/uL (1.0-4.8); Lymphocytes % (A) 18 %; MCH 33.7 pg (25.0-35.0); MCHC 30.9 g/dL (31.0-37.0); MCV 109.2 fL (80.0-100.0); Macrocytosis Marked; Mean Platelet Volume 11.1; Monocytes # (A) 0.3 k/uL (0-1.0); Monocytes % (A) 8 %; Neutrophils # (A) 2.7 k/uL (1.3-7.7); Neutrophils % (A) 65 %; Potassium 3.8 mmol/L (3.5-5.1); RBC 3.15 m/uL (3.80-5.40); RDW 14.9 % (11.5-15.5); Total Bilirubin 3.5 mg/dL (0.2-1.3); Total Protein 5.6 g/dL (6.3-8.2); WBC 4.1 k/uL (3.8-10.6)
[2020-03-24 08:18] LABS: Platelet Count 72 k/uL (150-450)
[2020-03-24] MEDS: PANTOPRAZOLE 40 MG TABLET PO SCH (08:38)
[2020-03-24] MEDS: METOPROLOL TARTRATE 12.5 MG TAB PO SCH (08:38)
[2020-03-24] MEDS: SPIRONOLACTONE 25 MG TAB PO SCH (08:38)
[2020-03-24] MEDS: LACTULOSE 20 GM/30 ML CUP PO SCH ×3 (08:39→20:48)
[2020-03-24] MEDS: CHOLECALCIFEROL 1,000 UNIT TAB PO SCH (08:39)
[2020-03-24] MEDS: MORPHINE SULFATE ER 15 MG TABLET PO SCH ×2 (08:40→21:46)
[2020-03-24] MEDS: buPROPion SR 150 MG TABLET.ER PO SCH (08:40)
[2020-03-24] MEDS: DICYCLOMINE 20 MG TAB PO SCH ×4 (08:40→20:48)
[2020-03-24] MEDS: TORSEMIDE 20 MG TAB PO SCH (08:40)
[2020-03-24] MEDS: RIFAXIMIN 550 MG TABLET PO SCH ×2 (08:40→20:48)
--- NOTE | 2020-03-24 09:16 | P.PN ---
Subjective Progress Note Date: 03/24/20 Principal diagnosis: Abdominal pain, decompensated nonalcoholic cirrhosis, ascites, hepatic encephalopathy Patient seen lying in bed reporting abdominal pain somewhat improved but still present. No nausea or vomiting. She does have increased output from her ostomy after the enema yesterday. Objective - Vital Signs Vital signs: Vital Signs Temp 98.3 F 03/24/20 07:00 Pulse 62 03/24/20 07:00 Resp 18 03/24/20 07:00 BP 101/56 03/24/20 07:00 Pulse Ox 100 03/24/20 07:00 Intake & Output 03/23/20 03/24/20 03/24/20 18:59 06:59 18:59 Intake Total 296 Output Total 0 Balance 296 0 Intake: Oral 296 Output: Emesis 0 Other: Voiding Method Toilet # Voids 1 2 - Exam On physical examination, patient appears comfortable in no apparent distress. HEAD: Normocephalic, atraumatic. EYES: No scleral icterus. No conjunctival injection. MOUTH: No lesions, tongue midline. NECK: Trachea midline, no gross abnormalities. ABDOMEN: Soft, obese, colostomy intact with good output. Mildly tender to palpation. Bowel sounds are positive. No organomegaly. No guarding or rigidity. EXTREMITIES: No pedal edema. SKIN: No rashes, no jaundice. NEUROLOGIC: Alert and oriented x3. No focal deficits. - Labs CBC & Chem 7: 03/24/20 07:30 03/24/20 07:30 Labs: Abnormal Lab Results - Last 24 Hours (Table) 03/23/20 03/23/20 03/23/20 Range/Units 08:17 08:17 12:01 RBC (3.80-5.40) m/uL Hgb (11.4-16.0) gm/dL MCV 108.6 H (80.0-100.0) fL MCHC (31.0-37.0) g/dL Plt Count 84 L D (150-450) k/uL Lymphocytes # (1.0-4.8) k/uL Macrocytosis Marked A Sodium (137-145) mmol/L Chloride (98-107) mmol/L Carbon Dioxide (22-30) mmol/L BUN (7-17) mg/dL Creatinine (0.52-1.04) mg/dL Glucose (74-99) mg/dL POC Glucose (mg/dL) 141 H (75-99) mg/dL Calcium (8.4-10.2) mg/dL Total Bilirubin (0.2-1.3) mg/dL AST (14-36) U/L ALT (4-34) U/L Alkaline Phosphatase (38-126) U/L Ammonia 51 H (<30) umol/L Total Protein (6.3-8.2) g/dL Albumin (3.5-5.0) g/dL 03/23/20 03/23/20 03/24/20 Range/Units 17:04 20:55 07:30 RBC 3.15 L (3.80-5.40) m/uL Hgb 10.6 L (11.4-16.0) gm/dL MCV 109.2 H (80.0-100.0) fL MCHC 30.9 L (31.0-37.0) g/dL Plt Count 72 L (150-450) k/uL Lymphocytes # 0.8 L (1.0-4.8) k/uL Macrocytosis Marked A Sodium (137-145) mmol/L Chloride (98-107) mmol/L Carbon Dioxide (22-30) mmol/L BUN (7-17) mg/dL Creatinine (0.52-1.04) mg/dL Glucose (74-99) mg/dL POC Glucose (mg/dL) 135 H 242 H (75-99) mg/dL Calcium (8.4-10.2) mg/dL Total Bilirubin (0.2-1.3) mg/dL AST (14-36) U/L ALT (4-34) U/L Alkaline Phosphatase (38-126) U/L Ammonia (<30) umol/L Total Protein (6.3-8.2) g/dL Albumin (3.5-5.0) g/dL 03/24/20 Range/Units 07:30 RBC (3.80-5.40) m/uL Hgb (11.4-16.0) gm/dL MCV (80.0-100.0) fL MCHC (31.0-37.0) g/dL Plt Count (150-450) k/uL Lymphocytes # (1.0-4.8) k/uL Macrocytosis Sodium 135 L (137-145) mmol/L Chloride 111 H (98-107) mmol/L Carbon Dioxide 19 L (22-30) mmol/L BUN 20 H (7-17) mg/dL Creatinine 1.10 H (0.52-1.04) mg/dL Glucose 109 H (74-99) mg/dL POC Glucose (mg/dL) (75-99) mg/dL Calcium 7.9 L (8.4-10.2) mg/dL Total Bilirubin 3.5 H (0.2-1.3) mg/dL AST 72 H (14-36) U/L ALT 38 H (4-34) U/L Alkaline Phosphatase 242 H (38-126) U/L Ammonia (<30) umol/L Total Protein 5.6 L (6.3-8.2) g/dL Albumin 2.1 L (3.5-5.0) g/dL Assessment and Plan (1) Abdominal pain Narrative/Plan: 74-year-old female with multiple medical comorbidities including decompensated nonalcoholic cirrhosis of the liver, hepatocellular carcinoma, and recurrent hospitalizations for encephalopathy secondary to noncompliance, abdominal pain and ascites. On current presentation she comes to the hospital reporting decreased output from her ostomy. She does report compliance with lactulose a fter discharge but has had problems with noncompliance in the past. She is reporting diffuse abdominal pain. Suspicion is for possible decreased output and stool burden causing abdominal pain, patient has also had pain from a site is in the past, cannot rule out other etiology as cause of pain. X-ray performed in evaluation essentially negative. Current Visit: No Status: Acute Priority: High Code(s): R10.9 - UNSPECIFIED ABDOMINAL PAIN SNOMED Code(s): 46852789 (2) Chronic liver disease Current Visit: No Status: Acute Code(s): K76.9 - LIVER DISEASE, UNSPECIFIED SNOMED Code(s): 094098891 (3) Colostomy in place Current Visit: No Status: Acute Code(s): Z93.3 - COLOSTOMY STATUS SNOMED Code(s): 426904276 (4) Hepatic encephalopathy Current Visit: No Status: Acute Code(s): K72.90 - HEPATIC FAILURE, UNSPECIFIED WITHOUT COMA SNOMED Code(s): 26299527 (5) Portal hypertension Current Visit: No Status: Acute Code(s): K76.6 - PORTAL HYPERTENSION SNOMED Code(s): 32822381 (6) Cirrhosis of liver with ascites Current Visit: No Status: Chronic Code(s): K74.60 - UNSPECIFIED CIRRHOSIS OF LIVER; R18.8 - OTHER ASCITES SNOMED Code(s): 37788959 (7) Hepatocellular carcinoma Current Visit: No Status: Chronic Priority: Medium Code(s): C22.0 - LIVER CELL CARCINOMA SNOMED Code(s): 952318958 Plan: Supportive care Okay for diet as tolerated Continue lactulose and Xifaxan therapy Continue spironolactone and Lasix for diuresis X-ray abdomen ordered for tomorrow to assess stool burden Tap water enema ordered through ostomy yesterday, with good output today Can order IR for assessment of paracentesis on Wednesday Thank you for allowing us to participate in the care of the patient we will continue to follow
[2020-03-24 11:47] LABS: Glucose,Whole Blood 214 mg/dL (75-99)
--- NOTE | 2020-03-24 13:13 | P.PN ---
Subjective Progress Note Date: 03/24/20 Principal diagnosis: Abdominal pain Patient continues to have abdominal pain. However she does admit to have improved since admission. Patient denies chest pain, shortness of breath, fevers, or chills. Patient CODE STATUS is now DO NOT RESUSCITATE. Patient is now willing to talk to hospice to discuss her options. The patient is a 74-year-old female well-known to our practice, with a PMH of hepatocellular carcinoma with enlargement of mass since November 2019, nonalcohol ic steatohepatitis, cirrhosis, type II DM, and CKD with multiple hospitalizations for hepatic encephalopathy and intractable nausea and vomiting with abdominal pain presented to the ED with complaints of 9/10 diffuse abdominal pain, nonradiating, with intractable nausea and vomiting. The patient notes that she has been attempting to contact her oncologist, though has been unable to make an appointment. She notes her pain started 2-3 days ago, and due to her nausea she has been unable to eat or drink much. She underwent an extensive evaluation in the emergency room with abdominal x-rays showing nonobstructive bowel gas pattern but otherwise unremarkable. Laboratory evaluation revealed ammonia 80, WBC count 5.1, hemoglobin 11.7, platelets 67, sodium 133, INR 1.3, potassium 3.7, CO2 20, BUN 30, creatinine 1.5, total bilirubin 2.6, AST 75, ALT 43, alk phos 367, with albumin 2.8. Objective - Vital Signs Vital signs: Vital Signs Temp 98.3 F 03/24/20 07:00 Pulse 62 03/24/20 07:00 Resp 18 03/24/20 07:00 BP 101/56 03/24/20 07:00 Pulse Ox 100 03/24/20 07:00 Intake & Output 03/23/20 03/24/20 03/24/20 18:59 06:59 18:59 Intake Total 296 Output Total 0 Balance 296 0 Intake: Oral 296 Output: Emesis 0 Other: Voiding Method Toilet Toilet # Voids 1 2 - Exam General: [non toxic], [no distress], [appears at stated age] Derm: [warm], [dry] Head: [atraumatic], [normocephalic], [symmetric] Eyes: [EOMI], [no lid lag], [anicteric sclera] Mouth: [no lip lesion], [mucus membranes moist] Cardiovascular: [S1S2 reg], [no murmur], [positive posterior tibial pulse bilateral], Lungs: [CTA bilateral], [no rhonchi, no rales] , [no accessory muscle use] Abdominal: [soft], [ nontender to palpation], [no guarding], [distended with ostomy bag] Ext: [no gross muscle atrophy], [no edema], [no contractures] Neuro: [ CN II-XI grossly intact], [no focal neuro deficits] Psych: [Alert], [oriented], [appropriate affect] - Labs CBC & Chem 7: 03/24/20 07:30 03/24/20 07:30 Labs: Abnormal Lab Results - Last 24 Hours (Table) 03/23/20 03/23/20 03/24/20 Range/Units 17:04 20:55 07:30 RBC 3.15 L (3.80-5.40) m/uL Hgb 10.6 L (11.4-16.0) gm/dL MCV 109.2 H (80.0-100.0) fL MCHC 30.9 L (31.0-37.0) g/dL Plt Count 72 L (150-450) k/uL Lymphocytes # 0.8 L (1.0-4.8) k/uL Macrocytosis Marked A Sodium (137-145) mmol/L Chloride (98-107) mmol/L Carbon Dioxide (22-30) mmol/L BUN (7-17) mg/dL Creatinine (0.52-1.04) mg/dL Glucose (74-99) mg/dL POC Glucose (mg/dL) 135 H 242 H (75-99) mg/dL Calcium (8.4-10.2) mg/dL Total Bilirubin (0.2-1.3) mg/dL AST (14-36) U/L ALT (4-34) U/L Alkaline Phosphatase (38-126) U/L Total Protein (6.3-8.2) g/dL Albumin (3.5-5.0) g/dL 03/24/20 03/24/20 Range/Units 07:30 11:46 RBC (3.80-5.40) m/uL Hgb (11.4-16.0) gm/dL MCV (80.0-100.0) fL MCHC (31.0-37.0) g/dL Plt Count (150-450) k/uL Lymphocytes # (1.0-4.8) k/uL Macrocytosis Sodium 135 L (137-145) mmol/L Chloride 111 H (98-107) mmol/L Carbon Dioxide 19 L (22-30) mmol/L BUN 20 H (7-17) mg/dL Creatinine 1.10 H (0.52-1.04) mg/dL Glucose 109 H (74-99) mg/dL POC Glucose (mg/dL) 214 H (75-99) mg/dL Calcium 7.9 L (8.4-10.2) mg/dL Total Bilirubin 3.5 H (0.2-1.3) mg/dL AST 72 H (14-36) U/L ALT 38 H (4-34) U/L Alkaline Phosphatase 242 H (38-126) U/L Total Protein 5.6 L (6.3-8.2) g/dL Albumin 2.1 L (3.5-5.0) g/dL Assessment and Plan Assessment: Abdominal pain with intractable nausea and vomiting -GI recommendations appreciated -Continue lactulose and Xifaxan therapy -Continue spironolactone and Lasix for diuresis -X-ray abdomen ordered for tomorrow to assess stool burden -Tap water enema ordered through ostomy yesterday, with good output today -IR for assessment of paracentesis on Wednesday -Dilaudid prn -Antiemetics Hepatic encephalopathy in setting of cirrhosis improved -Continue with home lactulose and rifaximin -Continue with Aldactone and torsemide -Needs to f/u with outpatient oncologist -Consult hospice Thrombocytopenia, at baseline -Monitor CBC Chronic kidney disease stage III -At baseline Type II DM -STEVO with FS DVT prophylaxis -IPCDs The patient is admitted with an anticipated greater than 2 midnight stay for evaluation of abdominal pain CODE STATUS: DO NOT RESUSCITATE Discussed with: Patient Anticipated discharge date: 03/25/[address]: Home A total of 30 minutes was spent on the care of this complex patient more than 50% of the time was spent in counseling and care coordination.
[2020-03-24 17:00] LABS: Glucose,Whole Blood 129 mg/dL (75-99)
--- NOTE | 2020-03-24 19:24 | P.PN ---
Subjective Progress Note Date: 03/24/20 Principal diagnosis: Abdominal pain, decompensated nonalcoholic cirrhosis, ascites, hepatic encephalopathy Patient seen lying in bed reporting good output from her ostomy. Abdominal pain somewhat improved but present. No nausea or vomiting. Objective - Vital Signs Vital signs: Vital Signs Temp 98.3 F 03/24/20 07:00 Pulse 62 03/24/20 07:00 Resp 18 03/24/20 07:00 BP 101/56 03/24/20 07:00 Pulse Ox 100 03/24/20 07:00 Intake & Output 03/23/20 03/24/20 03/24/20 18:59 06:59 18:59 Intake Total 296 Output Total 0 Balance 296 0 Intake: Oral 296 Output: Emesis 0 Other: Voiding Method Toilet Toilet # Voids 1 2 - Exam On physical examination, patient appears comfortable in no apparent distress. HEAD: Normocephalic, atraumatic. EYES: No scleral icterus. No conjunctival injection. MOUTH: No lesions, tongue midline. NECK: Trachea midline, no gross abnormalities. ABDOMEN: Soft, obese, colostomy intact with good output. Mildly tender to palpation. Bowel sounds are positive. No organomegaly. No guarding or rigidity. EXTREMITIES: No pedal edema. SKIN: No rashes, no jaundice. NEUROLOGIC: Alert and oriented x3. No focal deficits. - Labs CBC & Chem 7: 03/24/20 07:30 03/24/20 07:30 Labs: Abnormal Lab Results - Last 24 Hours (Table) 03/23/20 03/23/20 03/23/20 Range/Units 12:01 17:04 20:55 RBC (3.80-5.40) m/uL Hgb (11.4-16.0) gm/dL MCV (80.0-100.0) fL MCHC (31.0-37.0) g/dL Plt Count (150-450) k/uL Lymphocytes # (1.0-4.8) k/uL Macrocytosis Sodium (137-145) mmol/L Chloride (98-107) mmol/L Carbon Dioxide (22-30) mmol/L BUN (7-17) mg/dL Creatinine (0.52-1.04) mg/dL Glucose (74-99) mg/dL POC Glucose (mg/dL) 141 H 135 H 242 H (75-99) mg/dL Calcium (8.4-10.2) mg/dL Total Bilirubin (0.2-1.3) mg/dL AST (14-36) U/L ALT (4-34) U/L Alkaline Phosphatase (38-126) U/L Total Protein (6.3-8.2) g/dL Albumin (3.5-5.0) g/dL 03/24/20 03/24/20 Range/Units 07:30 07:30 RBC 3.15 L (3.80-5.40) m/uL Hgb 10.6 L (11.4-16.0) gm/dL MCV 109.2 H (80.0-100.0) fL MCHC 30.9 L (31.0-37.0) g/dL Plt Count 72 L (150-450) k/uL Lymphocytes # 0.8 L (1.0-4.8) k/uL Macrocytosis Marked A Sodium 135 L (137-145) mmol/L Chloride 111 H (98-107) mmol/L Carbon Dioxide 19 L (22-30) mmol/L BUN 20 H (7-17) mg/dL Creatinine 1.10 H (0.52-1.04) mg/dL Glucose 109 H (74-99) mg/dL POC Glucose (mg/dL) (75-99) mg/dL Calcium 7.9 L (8.4-10.2) mg/dL Total Bilirubin 3.5 H (0.2-1.3) mg/dL AST 72 H (14-36) U/L ALT 38 H (4-34) U/L Alkaline Phosphatase 242 H (38-126) U/L Total Protein 5.6 L (6.3-8.2) g/dL Albumin 2.1 L (3.5-5.0) g/dL Assessment and Plan (1) Abdominal pain Narrative/Plan: 74-year-old female with multiple medical comorbidities including decompensated nonalcoholic cirrhosis of the liver, hepatocellular carcinoma, and recurrent hospitalizations for encephalopathy secondary to noncompliance, abdominal pain and ascites. On current presentation she comes to the hospital reporting decreased output from her ostomy. She does report compliance with lactulose after discharge but has had problems with noncompliance in the past. She is reporting diffuse abdominal pain. Suspicion is for possible decreased output and stool burden causing abdominal pain, patient has also had pain from a site is in the past, cannot rule out other etiology as cause of pain. X-ray performed in evaluation essentially negative. Current Visit: No Status: Acute Priority: High Code(s): R10.9 - UNSPECIFIED ABDOMINAL PAIN SNOMED Code(s): 48497918 (2) Chronic liver disease Current Visit: No Status: Acute Code(s): K76.9 - LIVER DISEASE, UNSPECIFIED SNOMED Code(s): 755929638 (3) Colostomy in place Current Visit: No Status: Acute Code(s): Z93.3 - COLOSTOMY STATUS SNOMED Code(s): 321831062 (4) Hepatic encephalopathy Current Visit: No Status: Acute Code(s): K72.90 - HEPATIC FAILURE, UNSPECIFIED WITHOUT COMA SNOMED Code(s): 11590170 (5) Portal hypertension Current Visit: No Status: Acute Code(s): K76.6 - PORTAL HYPERTENSION SNOMED Code(s): 34662072 (6) Cirrhosis of liver with ascites Current Visit: No Status: Chronic Code(s): K74.60 - UNSPECIFIED CIRRHOSIS OF LIVER; R18.8 - OTHER ASCITES SNOMED Code(s): 84422142 (7) Hepatocellular carcinoma Current Visit: No Status: Chronic Priority: Medium Code(s): C22.0 - LIVER CELL CARCINOMA SNOMED Code(s): 968136758 Plan: Supportive care Okay for diet as tolerated Continue lactulose and Xifaxan therapy Continue spironolactone and Lasix for diuresis US paracentesis ordered Thank you for allowing us to participate in the care of the patient we will continue to follow
[2020-03-24 20:41] LABS: Glucose,Whole Blood 191 mg/dL (75-99)
[2020-03-25] MEDS: HYDROmorphone 0.5 MG/0.5 ML SYRINGE IVP PRN ×5 (02:10→20:46)
[2020-03-25] MEDS: SODIUM CHLORIDE 0.9% 1,000 ML IV SCH ×2 (02:13→12:09)
[2020-03-25 06:45] LABS: Glucose,Whole Blood 120 mg/dL (75-99)
[2020-03-25 07:47] LABS: Basophils % (A) 1 %; Eosinophils # (A) 0.2 k/uL (0-0.7); Eosinophils % (A) 5 %; HGB 10.2 gm/dL (11.4-16.0); Lymphocytes # (A) 0.8 k/uL (1.0-4.8); Lymphocytes % (A) 22 %; MCH 35.5 pg (25.0-35.0); MCHC 32.7 g/dL (31.0-37.0); MCV 108.5 fL (80.0-100.0); Macrocytosis Marked; Mean Platelet Volume 10.9; Monocytes # (A) 0.3 k/uL (0-1.0); Monocytes % (A) 9 %; Neutrophils # (A) 2.3 k/uL (1.3-7.7); Neutrophils % (A) 60 %; RBC 2.86 m/uL (3.80-5.40); RDW 15.1 % (11.5-15.5); WBC 3.8 k/uL (3.8-10.6)
[2020-03-25 07:48] LABS: Platelet Count 78 k/uL (150-450)
[2020-03-25] MEDS: INSULIN ASPART (NovoLOG) 100 UNIT/ML VIAL SQ SCH ×2 (08:08→12:07)
[2020-03-25] MEDS: MORPHINE SULFATE ER 15 MG TABLET PO SCH ×2 (08:10→20:50)
[2020-03-25] MEDS: PANTOPRAZOLE 40 MG TABLET PO SCH (08:15)
[2020-03-25] MEDS: CHOLECALCIFEROL 1,000 UNIT TAB PO SCH (08:15)
[2020-03-25] MEDS: buPROPion SR 150 MG TABLET.ER PO SCH (08:15)
[2020-03-25] MEDS: LACTULOSE 20 GM/30 ML CUP PO SCH ×3 (08:16→20:46)
[2020-03-25] MEDS: TORSEMIDE 20 MG TAB PO SCH (08:16)
[2020-03-25] MEDS: METOPROLOL TARTRATE 12.5 MG TAB PO SCH (08:16)
[2020-03-25] MEDS: SPIRONOLACTONE 25 MG TAB PO SCH (08:16)
[2020-03-25] MEDS: RIFAXIMIN 550 MG TABLET PO SCH ×2 (08:16→20:46)
[2020-03-25] MEDS: DICYCLOMINE 20 MG TAB PO SCH ×4 (08:16→20:46)
[2020-03-25 09:49] LABS: INR 1.5 (<1.2); Prothrombin Time 15.3 sec (9.0-12.0)
[2020-03-25 12:00] LABS: Glucose,Whole Blood 283 mg/dL (75-99)
--- NOTE | 2020-03-25 12:24 | US ---
Ultrasound-guided paracentesis. DATE OF EXAM: 03/25/2020 CLINICAL HISTORY: Ascites The procedure was discussed with the patient. The risks, complications, benefits, and alternatives we re discussed and any questions were answered. Informed consent was obtained. The patient was placed s upine on the ultrasound table and prepped and draped in the usual sterile fashion. All elements of maximal barrier technique were utilized. Under ultrasound guidance, access into the left lower quadrant was obtained, via the paracentesis catheter system and direct ultrasound guidance . Approximately 2.3 liters of straw-colored fluid was removed. The patient was stable throughout the pr ocedure and remained stable upon discharge from Department of Radiology. IMPRESSION: Successful paracentesis under ultrasound guidance.
[2020-03-25 16:34] LABS: Glucose,Whole Blood 222 mg/dL (75-99)
--- NOTE | 2020-03-25 16:39 | P.PN ---
Subjective Progress Note Date: 03/25/20 (delayed charting seen at 1230) Principal diagnosis: Abdominal pain Patient is a 74-year-old female well-known to our practice secondary to multiple hospitalizations with nonalcoholic steatohepatitis leading to cirrhosis that is now refractory to diuretic therapy, hepatic encephalopathy, hepatocellular carcinoma with enlargement of mass since November 2019 and inability to follow-up with her oncologist, diabetes mellitus type 2, and chronic kidney disease who presented to the hospital with complaints of abdominal pain associated with intractable nausea and vomiting. Of note she was recently hospitalized here from 03/09 through 03/14 secondary to hepatic encephalopathy with resultant extremely elevated ammonia levels. At that point in time was discussed with her the need to continue palliative care, consider hospice, that she needs to go to a alf facility. Per the patient she was only there few days and was doing so well she was discharged home. On this admission her vital signs were within normal limits. Laboratory analysis showed her known thrombocytopenia, creatinine slightly above baseline at 1.5 (baseline 1.3), her typical transaminitis. Ammonia level was 80. She underwent a KUB showed a nonspecific bowel gas pattern. She was admitted and gastroenterology was consulted. She was seen by GI who felt that her abdominal pain was likely secondary to decreased ostomy output and constipation. She was continued on her lactulose and Xifaxan was restarted. Objective - Vital Signs Vital signs: Vital Signs Temp 98.6 F 03/25/20 14:07 Pulse 64 03/25/20 14:07 Resp 16 03/25/20 14:07 BP 114/56 03/25/20 14:07 Pulse Ox 100 03/25/20 14:07 Intake & Output 03/24/20 03/25/20 03/25/20 18:59 06:59 18:59 Intake Total 596 306 Output Total 0 Balance 596 0 306 Intake: Oral 596 306 Output: Emesis 0 Other: Voiding Method Toilet Toilet Toilet # Voids 1 2 # Bowel Movements 1 - Labs CBC & Chem 7: 03/25/20 06:47 03/24/20 07:30 Labs: Abnormal Lab Results - Last 24 Hours (Table) 03/24/20 03/24/20 03/25/20 Range/Units 16:59 20:39 06:43 RBC (3.80-5.40) m/uL Hgb (11.4-16.0) gm/dL Hct (34.0-46.0) % MCV (80.0-100.0) fL MCH (25.0-35.0) pg Plt Count (150-450) k/uL Lymphocytes # (1.0-4.8) k/uL Macrocytosis PT (9.0-12.0) sec INR (<1.2) POC Glucose (mg/dL) 129 H 191 H 120 H (75-99) mg/dL 03/25/20 03/25/20 03/25/20 Range/Units 06:47 08:52 11:59 RBC 2.86 L (3.80-5.40) m/uL Hgb 10.2 L (11.4-16.0) gm/dL Hct 31.0 L (34.0-46.0) % MCV 108.5 H (80.0-100.0) fL MCH 35.5 H (25.0-35.0) pg Plt Count 78 L (150-450) k/uL Lymphocytes # 0.8 L (1.0-4.8) k/uL Macrocytosis Marked A PT 15.3 H (9.0-12.0) sec INR 1.5 H (<1.2) POC Glucose (mg/dL) 283 H (75-99) mg/dL Assessment and Plan Assessment: Abdominal pain with intractable nausea and vomiting due to constipation, improving -GI recommendations appreciated -Lactulose -Dilaudid prn -Antiemetics Decompensated cirrhosis with chronic hepatic encephalopathy -Lactulose, on Rifaxamin but unable to have at home due to cost. -Continue with Aldactone and torsemide -Needs to f/u with outpatient oncologist - Patient has been spoken with about hospice multiple times but is not ready to make a decision, she is open with palliative care. Hepatocellular carcinoma status post chemo embolization - Increasing size of liver mass noted in November 2019 -Follow up with her outpatient oncology team through [facility]. She has had difficulty with consistent follow-up secondary to the pandemic - I reemphasized with her again this hospital stay the importance of following up. Diabetes mellitus type 2 - has been off her Novolog N and R, resume at previous doses last admission of 6 units of N and 3 units of R -Follow blood sugars -A1c 5.1 Chronic pain - Resumed oral morphine long and as needed short acting, but at lower doses 03/10 Thrombocytopenia, secondary cirrhosis -At baseline -Follow CBC Chronic kidney disease stage III -Appears at baseline -Continue with diuretics and-follow creatinine CODE STATUS: DO NOT RESUSCITATE Discussed with: Patient, nursing Anticipated discharge date: in AM Anticipated discharge place: Home A total of 25 minutes was spent on the care of this complex patient more than 50% of the time was spent in counseling and care coordination.
[2020-03-25] MEDS: INSULIN REGULAR 100 UNIT/ML VIAL SQ SCH (17:05)
[2020-03-25] MEDS: INSULIN NPH 300 UNIT/3 ML VIAL SQ SCH (17:05)
[2020-03-25] MEDS: clonazePAM 0.5 MG TAB PO PRN (19:12)
[2020-03-25 20:12] LABS: Glucose,Whole Blood 184 mg/dL (75-99)
[2020-03-26] MEDS: HYDROmorphone 0.5 MG/0.5 ML SYRINGE IVP PRN (02:10)
[2020-03-26] MEDS: SODIUM CHLORIDE 0.9% 1,000 ML IV SCH (05:55)
[2020-03-26 06:44] LABS: Glucose,Whole Blood 211 mg/dL (75-99)
[2020-03-26 07:13] VITALS: BP 101/53; PULSE 57; RESP 15; TEMP 98.4
[2020-03-26 07:32] LABS: HCT 33.3 % (34.0-46.0); HGB 10.9 gm/dL (11.4-16.0); MCH 35.5 pg (25.0-35.0); MCHC 32.7 g/dL (31.0-37.0); MCV 108.3 fL (80.0-100.0); Macrocytosis Marked; RBC 3.08 m/uL (3.80-5.40); RDW 15.3 % (11.5-15.5); WBC 4.2 k/uL (3.8-10.6)
[2020-03-26] MEDS: INSULIN NPH 300 UNIT/3 ML VIAL SQ SCH (07:35)
[2020-03-26] MEDS: INSULIN REGULAR 100 UNIT/ML VIAL SQ SCH ×2 (07:36→12:47)
[2020-03-26] MEDS: PANTOPRAZOLE 40 MG TABLET PO SCH (07:37)
[2020-03-26] MEDS: CHOLECALCIFEROL 1,000 UNIT TAB PO SCH (07:38)
[2020-03-26] MEDS: LACTULOSE 20 GM/30 ML CUP PO SCH (07:38)
[2020-03-26] MEDS: DICYCLOMINE 20 MG TAB PO SCH ×2 (07:38→12:47)
[2020-03-26] MEDS: buPROPion SR 150 MG TABLET.ER PO SCH (07:38)
[2020-03-26] MEDS: METOPROLOL TARTRATE 12.5 MG TAB PO SCH (07:38)
[2020-03-26] MEDS: MORPHINE SULFATE ER 15 MG TABLET PO SCH (07:39)
[2020-03-26] MEDS: SPIRONOLACTONE 25 MG TAB PO SCH (07:39)
[2020-03-26] MEDS: RIFAXIMIN 550 MG TABLET PO SCH (07:39)
[2020-03-26] MEDS: TORSEMIDE 20 MG TAB PO SCH (07:40)
[2020-03-26 07:41] LABS: Albumin 1.9 g/dL (3.5-5.0); Calcium 7.3 mg/dL (8.4-10.2); Potassium 3.3 mmol/L (3.5-5.1); Total Bilirubin 1.7 mg/dL (0.2-1.3); Total Protein 5.3 g/dL (6.3-8.2)
[2020-03-26 07:52] LABS: Platelet Count 72 k/uL (150-450)
[2020-03-26] MEDS ORDERED: POTASSIUM CHLORIDE ER 20 MEQ TAB.ER PO STA (08:49)
[2020-03-26] MEDS ORDERED: PANTOPRAZOLE 40 MG/10 ML VIAL IVP ONE (09:30)
[2020-03-26 11:26] LABS: Glucose,Whole Blood 279 mg/dL (75-99)
--- NOTE | 2020-03-26 17:06 | PN ---
PROGRESS NOTE DATE OF DICTATION: 03/26/2020 Patient is a 74-year-old pleasant white female admitted to hospital with abdominal pain and acute hepatic encephalopathy. She was started on oral lactulose and has been having 3-4 a soft stools through the colostomy bag. She underwent and 2.5 L of fluid was removed and she is feeling much better. She still has some epigastric discomfort. She reports no nausea, vomiting. PHYSICAL EXAMINATION: She appears comfortable, in no apparent distress. Vital signs are stable. Blood pressure is 101/53, pulse rate 82 per minute and afebrile. HEENT: Examination unremarkable, conjunctivae are pink, sclerae nonicteric, oral cavity no lesions. NECK: No JVD or lymph node enlargement. CHEST: Clear to auscultation. HEART: Regular rate and rhythm. ABDOMEN: Soft. Bowel sounds are positive. No organomegaly. EXTREMITIES: No pedal edema. SKIN: No rashes. NEUROLOGIC: Alert and oriented x3. No focal deficits. Colostomy bag has loose, soft stools. LABS: Done from today show WBC 4.2, hemoglobin 10.9, platelets 72. Bilirubin is 1.7. AST and ALT are 60 and 34 respectively, alkaline phosphatase 269. IMPRESSION: 1. Nonalcoholic fatty liver disease with cirrhosis of the liver with gradual decompensation. 2. Hepatic encephalopathy, resolved. Remains on Xifaxan and lactulose. 3. Ascites, status post large-volume paracentesis 2 L of fluid was aspirated yesterday. She is feeling better. 4. History of hepatocellular carcinoma diagnosed 2 years ago, status post chemoembolization. She follows with Dr. Sands in [facility]. RECOMMENDATIONS: 1. Continue with Xifaxan and lactulose. 2. Continue with current diuretics. 3. Patient was educated about the use of oral lactulose for that she has 3-4 soft bowel movements daily. 4. Low-salt diet. 5. Follow up in the office in 2 weeks following discharge from the hospital. 6. Continue with Prilosec 20 mg daily. Thank you for this consultation. MMODL / IJN: [id number] /
--- NOTE | 2020-03-26 18:46 | P.DS ---
Providers Date of admission: 03/22/20 01:22 Expected date of discharge: 03/26/20 Attending physician: Edgar Duncan MD Consults: 03/22/20 00:38 Consult Physician Stat Consulting Provider: Ananth Francois Consult Reason/Comments: Intractable abdominal pain, nausea, vomiting Do you want consulting provider notified?: Yes, Notify in am Primary care physician: Gilma Martinez Hospital Course: Discharge Diagnosis: Abdominal pain with intractable nausea and vomiting due to constipation Decompensated cirrhosis with chronic hepatic encephalopathy Gastritis Hepatocellular carcinoma status post chemo embolization Diabetes mellitus type 2 Chronic pain Thrombocytopenia, secondary cirrhosis Chronic kidney disease stage III, 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 Of note she was recently hospitalized here from 03/09 through 03/14 secondary to hepatic encephalopathy with resultant extremely elevated ammonia levels. At that point in time was discussed with her the need to continue palliative care, consider hospice, and that she needs to go to a group home facility. Per the patient she was only there few days and was doing so well she was discharged home. On this admission her vital signs were within normal limits. Laboratory analysis showed her known thrombocytopenia, creatinine slightly above baseline at 1.5 (baseline 1.3), her typical transaminitis. Ammonia level was 80. She underwent a KUB showed a nonspecific bowel gas pattern. She was admitted and gastroenterology was consulted. She was seen by GI who felt that her abdominal pain was likely secondary to decreased ostomy output and constipation. She was continued on her lactulose and Xifaxan was restarted. She was given a month her ostomy and her constipation resolved. Her abdominal pain was feeling better. She underwent a paracentesis on 03/25 with removal of 2.3 L of fluid. She tolerated this well. She is determined stable for discharge home. She was reported some continued epigastric pain and early satiety. We discussed increasing her acid medication and resuming the Carafate that she had been on prior. She is willing to try this and be discharged home. She has plans to sign-on with hospice at home. Case discussed with her palliative care nurse practitioner Sanjana is aware of patient's decision for hospice and she will aid in ordering hospice. Patient seen and examined at bedside. She continues to have some abdominal pain and nausea when eating. Unable to tolerate small amounts. Abdominal pain is improved since yesterday. We had a long discussion she did meet with hospice yesterday. She states she'll sign-on with this after speaking with her [id number] at home. Vital signs reviewed and stable. General: Chronically ill appearing with temporal wasting and pallor, appears ol aubree than stated age Derm: warm, dry Head: atraumatic, normocephalic, symmetric Eyes: EOMI, no lid lag, anicteric sclera Mouth: no lip lesion, mucus membranes moist Cardiovascular: S1S2 reg, no murmur, positive posterior tibial pulse bilateral, Lungs: Decreased breath sounds bilateral, no rhonchi, no rales , no accessory muscle use Abdominal: soft, nontender to palpation, no guarding, no appreciable organomegaly, colostomy bag filled with brown stool Ext: no gross muscle atrophy, trace edema bilateral, no contractures Neuro: CN II-XI grossly intact, no focal neuro deficits Psych: Alert, oriented, appropriate affect A total of 65 minutes of time were spent preparing this complex discharge summary . Patient Condition at Discharge: Fair Plan - Discharge Summary Discharge Rx Participant: No New Discharge Prescriptions: New Lactulose [Cephulac] 30 gm PO TID #1 bottle Insulin Regular [humuLIN R] 3 unit SQ AC-TID vial Omeprazole [PriLOSEC] 40 mg PO BID #60 cap Continue Cholecalciferol [Vitamin D3 (25 Mcg = 1000 Iu)] 4,000 unit PO DAILY Ferrous Sulfate [Iron (65 MG Elemental)] 325 mg PO BID buPROPion HCL [Wellbutrin SR] 150 mg PO DAILY Torsemide [Demadex] 20 mg PO DAILY tab Spironolactone [Aldactone] 25 mg PO DAILY Dicyclomine [Bentyl] 20 mg PO QID Ondansetron Odt [Zofran ODT] 8 mg PO Q8H PRN PRN Reason: Nausea Metoprolol Tartrate [Lopressor] 6.25 mg PO DAILY Morphine Sulfate ER [Ms Contin] 15 mg PO Q12HR #60 tablet clonazePAM [KlonoPIN] 0.5 mg PO BID PRN 30 Days #30 tab PRN Reason: Anxiety Morphine Sulfate Ir [MSIR] 15 mg PO Q8H PRN #30 tab PRN Reason: Breakthrough Pain Lactulose [Cephulac] 45 gm PO BID PRN PRN Reason: Constipation Sucralfate [Carafate] 1 gm PO QID PRN #120 tab PRN Reason: GERD Changed Insulin NPH Human Isophane [humuLIN N] 6 unit SQ BID #0 Discontinued Omeprazole Magnesium [PriLOSEC OTC] 20 mg PO BID Rifaximin [Xifaxan] 550 mg PO BID #60 tablet Discharge Medication List Cholecalciferol [Vitamin D3 (25 Mcg = 1000 Iu)] 4,000 unit PO DAILY 01/16/19 [History] Ferrous Sulfate [Iron (65 MG Elemental)] 325 mg PO BID 01/31/19 [History] buPROPion HCL [Wellbutrin SR] 150 mg PO DAILY 06/12/19 [History] Torsemide [Demadex] 20 mg PO DAILY tab 11/21/19 [Rx] Spironolactone [Aldactone] 25 mg PO DAILY 11/25/19 [History] Dicyclomine [Bentyl] 20 mg PO QID 01/04/20 [History] Metoprolol Tartrate [Lopressor] 6.25 mg PO DAILY 02/03/20 [History] Ondansetron Odt [Zofran ODT] 8 mg PO Q8H PRN 02/03/20 [History] Morphine Sulfate ER [Ms Contin] 15 mg PO Q12HR #60 tablet 03/14/20 [Rx] Morphine Sulfate Ir [MSIR] 15 mg PO Q8H PRN #30 tab 03/14/20 [Rx] clonazePAM [KlonoPIN] 0.5 mg PO BID PRN 30 Days #30 tab 03/14/20 [Rx] Lactulose [Cephulac] 45 gm PO BID PRN 03/22/20 [History] Insulin NPH Human Isophane [humuLIN N] 6 unit SQ BID #0 03/26/20 [Rx] Insulin Regular [humuLIN R] 3 unit SQ AC-TID vial 03/26/20 [Rx] Lactulose [Cephulac] 30 gm PO TID #1 bottle 03/26/20 [Rx] Omeprazole [PriLOSEC] 40 mg PO BID #60 cap 03/26/20 [Rx] Sucralfate [Carafate] 1 gm PO QID PRN #120 tab 03/26/20 [Rx] Follow up Appointment(s)/Referral(s): Carley Valverde MD [STAFF PHYSICIAN] - 2 Weeks [facility], [NON-STAFF] - (Palliative care) Gilma Martinez MD [Primary Care Provider] - 1-2 days (office not answering Please call to make appointment) Activity/Diet/Wound Care/Special Instructions: Activity: as tolerated Diet: carb consistent 2 gram sodium 1.5 L fluid restriction GERD Special Instructions: Follow-up with palliative care will meet with you for virtual appointment prior to home care. Discharge Disposition: HOME WITH HOME HEALTH SERVICES
== END 2020-03-26 13:32 | disposition home health service (06) | DRG 391 ==
LOC: EC 22:08 → 4SSUR 03-22 01:22
PROVIDERS: ADMIT Internal Medicine; ATTEND Internal Medicine
PROC: 0W9G3ZZ Drainage of Peritoneal Cavity, Percutaneous Approach (ICD-10-PCS; principal; 2020-03-25)
DX: K59.00 Constipation, unspecified (principal); K72.00 Acute and subacute hepatic failure without coma; K76.6 Portal hypertension; C22.0 Liver cell carcinoma; R18.8 Other ascites; K74.60 Unspecified cirrhosis of liver; K75.81 Nonalcoholic steatohepatitis (NASH); F41.9 Anxiety disorder, unspecified; F32.9 Major depressive disorder, single episode, unspecified; E11.22 Type 2 diabetes mellitus with diabetic chronic kidney disease; N18.3 Chronic kidney disease, stage 3 (moderate); I12.9 Hypertensive chronic kidney disease with stage 1 through stage 4 chronic kidney disease, or unspecified chronic kidney disease; Z66 Do not resuscitate; Z51.5 Encounter for palliative care; K29.70 Gastritis, unspecified, without bleeding; K43.9 Ventral hernia without obstruction or gangrene; D69.6 Thrombocytopenia, unspecified; Z11.59 Encounter for screening for other viral diseases; G89.29 Other chronic pain; I25.2 Old myocardial infarction; Z90.710 Acquired absence of both cervix and uterus; Z87.891 Personal history of nicotine dependence; Z88.5 Allergy status to narcotic agent; Z88.0 Allergy status to penicillin; Z88.8 Allergy status to other drugs, medicaments and biological substances; Z79.899 Other long term (current) drug therapy; Z79.4 Long term (current) use of insulin; Z82.49 Family history of ischemic heart disease and other diseases of the circulatory system; Z85.05 Personal history of malignant neoplasm of liver; Z87.11 Personal history of peptic ulcer disease; Z86.14 Personal history of Methicillin resistant Staphylococcus aureus infection; Z98.890 Other specified postprocedural states; Z87.440 Personal history of urinary (tract) infections; Z90.49 Acquired absence of other specified parts of digestive tract; Z90.89 Acquired absence of other organs; Z92.21 Personal history of antineoplastic chemotherapy; Z93.3 Colostomy status; Z91.19 Patient's noncompliance with other medical treatment and regimen
CPT/HCPCS: 36415; 49083; 74018; 80053; 81001; 82140; 82150; 83036; 83605; 83690; 85025; 85027; 85610; 85730; 87635; 96361; 96374; 96375; 99285

== ENCOUNTER → 2020-03-21 | Outpatient (CLI) | payer MEDICARE, OTHER | END | disposition home or self-care (01) | LOC: LABWHC1 07:05 | PROVIDERS: ATTEND General Practice | DX: U07.1 COVID-19 (principal) | CPT/HCPCS: 87635 ==

== ENCOUNTER → 2020-03-29 | Outpatient (CLI) | payer MEDICARE, OTHER | END | disposition home or self-care (01) | LOC: LABWHC1 15:34 | PROVIDERS: ATTEND Internal Medicine Gastroenterology | DX: Z53.9 Procedure and treatment not carried out, unspecified reason (principal) ==

== ENCOUNTER 2020-04-06 19:13 | Inpatient (IN) | payer MEDICARE, OTHER ==
[2020-04-06] MEDS ORDERED: ACETAMINOPHEN TAB 325 MG TAB PO PRN (20:11)
[2020-04-06] MEDS ORDERED: LORazepam 2 MG/ML INJ IV PRN (20:11)
[2020-04-06] MEDS: ONDANSETRON 4 MG/2 ML VIAL IVP PRN (21:10)
[2020-04-06] MEDS: MORPHINE SULFATE 2 MG/ML SYRINGE IV PRN (21:11)
[2020-04-06 21:31] LABS: Glucose,Whole Blood 105 mg/dL (75-99)
[2020-04-06] MEDS: LACTULOSE 20 GM/30 ML CUP PO SCH (22:35)
--- NOTE | 2020-04-07 00:44 | P.HPIM ---
History of Present Illness H&P Date: 04/06/20 Chief Complaint: repeated nausea and vomiting 74 year old female with liver cancer, on hospice care, DM controlled with insulin , Hypertension controlled patient comes in after family notified 911 due to repeated uncontrolled nausea and vomiting that has started since last night with reported AMS today. no reported fever, or chills. no recent traveling. she has been confined to her home. no sick contacts reported. vomiting consisted of stomach juices. non bloody non bilious . she also reports 6/10 epigastric abd pain radiates to the rest of the abd but mainly in the epigastric region . no specific reliving or aggreviating factors. colostomy bag in place with some leaking at the base. no difficulty breathing, no chest pain. patient reports abd paracentesis done about 10 days ago . patient is known to our practice, she is currently under hospice care. Review of Systems Pertinent positives as noted in HPI. All other systems were reviewed and are negative Past Medical History Past Medical History: Cancer, Diabetes Mellitus, Hypertension, Liver Disease, Myocardial Infarction (MD), Renal Disease Additional Past Medical History / Comment(s): Hepatocellular liver cancer with chemo immobilization-last time being 2017, nonalcoholic liver cirrhosis, chronic pancytopenia, chronic elevated ammonia levels, hepatic encephalopathy, chronic elevated LFTs, chronic abdominal pain, stomach ulcer, diverticular disease with ileostomy, IDDM type II, iron anemia, CKD stage III, nonsustained vtach, UTI, high ammonia levels, multi ascities with paracentesis, Last Myocardial Infarction Date:: unk History of Any Multi-Drug Resistant Organisms: MRSA, VRE Date of last positivie culture/infection: 07/22/19- VRE; 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 . Retired. No experience. No animal exposures Smoking Status: Never smoker Past Alcohol Use History: None Reported Additional Past Alcohol Use History / Comment(s): started smoking 1962 and quit 1965 Past Drug Use History: None Reported - Past Family History Mother History Unknown: Yes Family Medical History: Congestive Heart Failure (CHF) Additional Family Medical History / Comment(s): Mother is 94 yrs old. Father Family Medical History: Chest Pain / Angina Additional Family Medical History / Comment(s): Father is . Medications and Allergies Home Medications Medication Instructions Recorded Confirmed Type Cholecalciferol [Vitamin D3 (25 4,000 unit PO DAILY 01/16/19 04/06/20 History Mcg = 1000 Iu)] Torsemide [Demadex] 20 mg PO DAILY tab 11/21/19 04/06/20 Rx Spironolactone [Aldactone] 25 mg PO DAILY 11/25/19 04/06/20 History Sucralfate [Carafate] 1 gm PO QID PRN #120 tab 03/26/20 04/06/20 Rx Insulin NPH Human Isophane 18 unit SQ BID 04/06/20 04/06/20 History [humuLIN N] Insulin Regular [humuLIN R] 10 unit SQ AC-TID 04/06/20 04/06/20 History Lactulose [Cephulac] 30 gm PO BID 04/06/20 04/06/20 History Allergies Allergy/AdvReac Type Severity Reaction Status Date / Time amlodipine Allergy Rash/Hives Verified 03/22/20 08:15 oxycodone Allergy Rash/Hives Verified 03/22/20 08:15 Penicillins Allergy Rash/Hives Verified 03/22/20 08:15 hydromorphone [From Dilaudid] AdvReac Mild tactile Verified 03/22/20 08:15 disturbance GREG Inhibitors AdvReac Cough Verified 03/22/20 08:15 sodium dodecyclbenzene Allergy Rash/Hives Uncoded 03/22/20 08:16 sulfonate Physical Exam Vitals: Vital Signs Temp Pulse Resp BP Pulse Ox 04/06/20 20:54 98.9 F 65 16 105/55 100 Intake and Output 04/06/20 04/06/20 04/06/20 06:59 14:59 22:59 Other: # Voids 1 # Bowel Movements 1 Weight 86 kg Constitutional: No acute distress, conversant, pleasant Eyes: moist conjunctiva, Pupils equal round reactive to light ENMT: NC/AT Oropharynx clear, no erythema, or exudates Neck: Supple, FROM, no masses, or JVD No carotid bruits No thyromegaly Lungs: Clear to auscultation Clear to percussion Normal respiratory effort, no accessory muscle use Cardiovascular: Heart regular in rate and rhythm, No murmurs, gallops, or rubs No peripheral edema Abdominal: Soft Nontender, no guarding, rebound or rigidity colostomy bag in place, slight leaking from base, no bleeding Abdomen moving with respiration Normoactive bowel sounds No palpable mass No abdominal wall hernia noted Skin: Normal temperature, tone, texture, turgor No induration No subcutaneous nodules No rash, lesions No ulcers Extremities: No digital cyanosis No clubbing Pedal pulses intact and symmetrical Radial pulses intact and symmetrical No calf tenderness Psychiatric: Alert and oriented to person, place and time Appropriate affect fair judgement Neuro Muscles Strength 4/5 in all 4 extremities Sensation to light touch grossly present throughout Cranial nerves II-XII grossly intact No focal sensory deficits Lymphatics: no palpable cervical or supraclavicular , or inguinal lymph nodes Results Labs: Abnormal Lab Results - Last 24 Hours (Table) 04/06/20 04/06/20 Range/Units 20:55 21:30 POC Glucose (mg/dL) 105 H (75-99) mg/dL Ammonia 43 H (<30) umol/L Assessment and Plan Assessment: 74 year old female under hospice care due to hepatocellular carcinoma, was brought in to the hospital due to repeated nausea and vomiting for further evaluation . anticipated length of stay <2 midnights. intractable nausea and vomiting symptom control gentle IVF hydration supportive care hepatocellular carcinoma, continue with hospice care pain control with morphine diet as tolerated ammonia level in the 40s, continue with baseline lactulose insulin for diabetes mellitus continue wit sliding scale hypertension controlled, off medications DVT PPx , mechanical Preformed a thorough record review from recent hospitalization for abd pain , with intractable nausea and vomiting CODE STATUS: no code DVT prophylaxis: mechanical Discussed with: Patient, RN Anticipated length of stay < than [address]: home with hospice care A total of 70 minutes was spent on the care of this complex patient more than 50% of the time was spent in counseling and care coordination.
[2020-04-07] MEDS: MORPHINE SULFATE 2 MG/ML SYRINGE IV PRN ×6 (01:37→21:15)
[2020-04-07] MEDS: ONDANSETRON 4 MG/2 ML VIAL IVP PRN (04:40)
[2020-04-07 07:00] LABS: Glucose,Whole Blood 100 mg/dL (75-99)
[2020-04-07] MEDS: INSULIN ASPART (NovoLOG) 100 UNIT/ML VIAL SQ SCH ×4 (08:32→21:15)
[2020-04-07] MEDS: LACTULOSE 20 GM/30 ML CUP PO SCH ×2 (08:43→21:15)
[2020-04-07 11:05] LABS: Glucose,Whole Blood 221 mg/dL (75-99)
[2020-04-07] MEDS ORDERED: SUCRALFATE 1 GM TAB PO PRN (13:38)
--- NOTE | 2020-04-07 13:42 | P.PN ---
Subjective Progress Note Date: 04/07/20 Principal diagnosis: nausea or vomiting Patient was seen and examined. No acute events overnight. Patient reports continued nausea and vomiting this morning. She is on clear liquid diet. She reports epigastric discomfort that started 3 days ago. Objective - Vital Signs Vital signs: Vital Signs Temp 98.7 F 04/07/20 11:45 Pulse 69 04/07/20 11:45 Resp 14 04/07/20 11:45 BP 96/53 04/07/20 11:45 Pulse Ox 98 04/07/20 11:45 Intake & Output 04/06/20 04/07/20 04/07/20 18:59 06:59 18:59 Output Total 2300 750 Balance -2300 -750 Weight 86 kg Output: Urine 1200 Uretheral (Singh) 1200 Stool 1100 750 Other: Voiding Method Diaper Indwelling Catheter # Voids 1 # Bowel Movements 2 - Exam General: [non toxic], [no distress], [appears at stated age] Derm: [warm], [dry] Head: [atraumatic], [normocephalic], [symmetric] Eyes: [EOMI], [no lid lag], [icteric sclera] Mouth: [no lip lesion], [mucus membranes moist] Cardiovascular: [S1S2 reg], [no murmur], [positive DP pulse bilateral], Lungs: [CTA bilateral], [no rhonchi, no rales] , [no accessory muscle use] Abdominal: [soft], [ nontender to palpation], [no guarding], [no appreciable organomegaly], [clostomy bag in place] Ext: [no gross muscle atrophy], [no edema], [no contractures] Neuro: [ CN II-XI grossly intact], [no focal neuro deficits] Psych: [Alert], [oriented], [appropriate affect] - Labs Labs: Abnormal Lab Results - Last 24 Hours (Table) 04/06/20 04/06/20 04/07/20 Range/Units 20:55 21:30 06:59 POC Glucose (mg/dL) 105 H 100 H (75-99) mg/dL Ammonia 43 H (<30) umol/L 04/07/20 Range/Units 11:04 POC Glucose (mg/dL) 221 H (75-99) mg/dL Ammonia (<30) umol/L Assessment and Plan Assessment: Abdominal pain with intractable nausea and vomiting -KUB ordered -Antiemetics- Zofran IV as needed -Clear liquid diet and advance as tolerated Decompensated cirrhosis with chronic hepatic encephalopathy -Continue Lactulose -Continue with Aldactone and torsemide -Needs to f/u with outpatient oncologist -Patient currently on hospice care Hepatocellular carcinoma status post chemo embolization - Increasing size of liver mass noted in November 2019 -Follow up with her outpatient oncology team through [facility]. She has had difficulty with consistent follow-up secondary to the pandemic Diabetes mellitus type 2 -Follow blood sugars -A1c 5.1 Chronic pain -Morphine as needed [Patient with continued nausea and vomiting. KUB ordered. Continue symptomatic treatment. Plans to go back to hospice. Anticipate DC in 1-2 days once symptoms are better controlled.]
--- NOTE | 2020-04-07 14:09 | XR ---
EXAMINATION TYPE: XR KUB portable DATE OF EXAM: 04/07/2020 1:55 PM CLINICAL HISTORY: Upper abdominal pain TECHNIQUE: Single supine KUB image of the abdomen is obtained. COMPARISON: 03/21/2020. FINDINGS: Surgical clips noted in the right upper quadrant. No dilated large or small bowel. Lung bas es are well aerated. No suspicious calcification in the abdomen or pelvis. At least moderate degenera tive changes of the spine and hips. Mild levoscoliosis of the spine. IMPRESSION: Nonobstructive bowel gas pattern.
[2020-04-07 16:54] LABS: Glucose,Whole Blood 122 mg/dL (75-99)
[2020-04-07 20:11] LABS: Glucose,Whole Blood 217 mg/dL (75-99)
[2020-04-08] MEDS: MORPHINE SULFATE 2 MG/ML SYRINGE IV PRN ×5 (01:19→21:54)
[2020-04-08 07:14] LABS: Glucose,Whole Blood 121 mg/dL (75-99)
[2020-04-08] MEDS: INSULIN ASPART (NovoLOG) 100 UNIT/ML VIAL SQ SCH ×4 (07:14→21:42)
[2020-04-08] MEDS: SPIRONOLACTONE 25 MG TAB PO SCH (07:15)
[2020-04-08] MEDS: TORSEMIDE 20 MG TAB PO SCH (07:21)
[2020-04-08] MEDS: LACTULOSE 20 GM/30 ML CUP PO SCH ×2 (07:21→20:11)
[2020-04-08 11:21] LABS: Glucose,Whole Blood 227 mg/dL (75-99)
--- NOTE | 2020-04-08 15:08 | P.PN ---
Subjective Progress Note Date: 04/08/20 Principal diagnosis: nausea and vomiting Patient is a 74-year-old female with known hepatocellular carcinoma and cirrhosis who is currently receiving hospice care, diabetes mellitus, frequent hepatic encephalopathy, and hypertension who presented as a direct admission to hospice for uncontrolled nausea and vomiting. She had an ammonia level checked which was 43 at about normal for her. She was started on supportive care with gentle IV fluids and Zofran. She underwent a KUB on 04/07 which showed no acute process. She has not required any IV Zofran morning of 04/07 however she has been on a clear liquid diet. Patient seen and examined at bedside. She states she was doing well at home but developed dry heaving overnight on 04/04 and 04/05. Then on 04/06 she was unable to keep anything down for approximately 6 hours and therefore was admitted to the hospital under hospice care. She states she has been having good output from her colostomy bag. She has no complaints at this time and pain is well controlled. She doesn't want to try eating something. Objective - Vital Signs Vital signs: Vital Signs Temp 98.5 F 04/08/20 05:09 Pulse 65 04/08/20 05:09 Resp 16 04/08/20 05:09 BP 93/50 04/08/20 05:09 Pulse Ox 97 04/08/20 05:09 Intake & Output 04/07/20 04/08/20 04/08/20 18:59 06:59 18:59 Intake Total 590 Output Total 1150 800 800 Balance -1150 -210 -800 Intake: Oral 590 Output: Urine 400 800 800 Uretheral (Egan) 400 800 800 Stool 750 Other: Voiding Method Indwelling Catheter Indwelling Catheter Indwelling Catheter # Bowel Movements 1 - Exam General: ill appaering, no distress, appears at stated age Derm: warm, dry Head: atraumatic, normocephalic, symmetric Eyes: EOMI, no lid lag, anicteric sclera Mouth: no lip lesion, mucus membranes moist Cardiovascular: S1S2 reg, no murmur, positive posterior tibial pulse bilateral, Lungs: CTA bilateral, no rhonchi, no rales , no accessory muscle use Abdominal: soft, +tender to palpation RLQ, no guarding, no appreciable organomegaly Ext: no gross muscle atrophy, no edema, no contractures Neuro: CN II-XI grossly intact, no focal neuro deficits Psych: Alert, oriented, appropriate affect - Labs Labs: Abnormal Lab Results - Last 24 Hours (Table) 04/07/20 04/07/20 04/07/20 Range/Units 11:04 16:52 20:09 POC Glucose (mg/dL) 221 H 122 H 217 H (75-99) mg/dL 04/08/20 Range/Units 06:58 POC Glucose (mg/dL) 121 H (75-99) mg/dL Assessment and Plan Assessment: Intractable nausea and vomiting - concern is for ileus - increase diet and nausea resolved - Continue lactulose Toxic metabolic encephalopathy - I believe that her long acting morphin at home needs to be decreased. She's had multiple recent admissions for altered mentation, we have held her long- acting morphine and she has immediately improved. -Supportive care -Continue lactulose Cirrhosis with history of recurrent ascites, hx of recurrent hepatic encephalopathy, and known hepatocellular carcinoma of the liver -Continue with lactulose, not a candidate for Xifaxan secondary to insurance issues -Continue with Aldactone and torsemide DM 2 with hyperglycemia -resume home R and N insulin but at lower doses - Follow BS - A1C 5.3 Chronic: Hypertension Pancytopenia Gastric ulcer Diverticular disease Iron deficiency anemia Chronic kidney disease stage III Continue with hospice care including pain medications, antiemetics, and lac tulose Ambulate patient D/C egan cath DVT prophylaxis: SCDs Discussed with: [Patient and nursing Anticipated discharge: in AM Anticipated discharge place: Return home with hospice A total of 35 minutes was spent on the care of this complex patient more than 50% of the time was spent in counseling and care coordination.
[2020-04-08 17:21] LABS: Glucose,Whole Blood 198 mg/dL (75-99)
[2020-04-08] MEDS: INSULIN REGULAR 100 UNIT/ML VIAL SQ SCH (17:30)
[2020-04-08] MEDS ORDERED: INSULIN NPH 300 UNIT/3 ML VIAL SQ SCH (21:00)
[2020-04-08 21:40] LABS: Glucose,Whole Blood 112 mg/dL (75-99)
[2020-04-08] MEDS: ONDANSETRON 4 MG/2 ML VIAL IVP PRN (21:54)
[2020-04-09] MEDS: MORPHINE SULFATE 2 MG/ML SYRINGE IV PRN ×2 (01:55→07:54)
[2020-04-09 07:10] LABS: Glucose,Whole Blood 88 mg/dL (75-99)
[2020-04-09] MEDS ORDERED: ONDANSETRON ODT 4 MG TAB PO PRN (07:34)
[2020-04-09] MEDS: INSULIN ASPART (NovoLOG) 100 UNIT/ML VIAL SQ SCH ×4 (07:37→21:23)
[2020-04-09] MEDS: SPIRONOLACTONE 25 MG TAB PO SCH (07:54)
[2020-04-09] MEDS: TORSEMIDE 20 MG TAB PO SCH (07:54)
[2020-04-09] MEDS: LACTULOSE 20 GM/30 ML CUP PO SCH ×3 (07:54→21:23)
[2020-04-09] MEDS: INSULIN REGULAR 100 UNIT/ML VIAL SQ SCH ×3 (08:01→17:56)
[2020-04-09] MEDS ORDERED: INSULIN NPH 300 UNIT/3 ML VIAL SQ SCH (09:00)
[2020-04-09] MEDS ORDERED: BENZOCAINE 20 % GEL 15 GM TUBE MM PRN (09:15)
[2020-04-09] MEDS ORDERED: MORPHINE SULFATE IR 15 MG TABLET PO PRN (09:16)
[2020-04-09 11:37] LABS: Glucose,Whole Blood 219 mg/dL (75-99)
[2020-04-09 17:07] LABS: Glucose,Whole Blood 195 mg/dL (75-99)
--- NOTE | 2020-04-09 19:58 | P.DS ---
Providers Date of admission: 04/06/20 19:20 Expected date of discharge: 04/09/20 Attending physician: Wilson Vee MD Primary care physician: Stated None Hospital Course: Discharge Diagnosis: Intractable nausea and vomiting, suspect ileus Toxic metabolic encephalopathy Cirrhosis with hx of recurrent ascities Hepatocellular carcinoma of the liver DM 2 Hypertension Pancytopenia Gastric ulcer Diverticular disease Iron deficiency anemia Chronic kidney disease stage III Hospital Course: Patient is a 74-year-old female with known hepatocellular carcinoma and cirrhosis who is currently receiving hospice care, diabetes mellitus, frequent hepatic encephalopathy, and hypertension who presented as a direct admission to hospice for uncontrolled nausea and vomiting. She had an ammonia level checked which was 43 at about normal for her. She was started on supportive care with gentle IV fluids and Zofran. She underwent a KUB on 04/07 which showed no acute process. She has not required any IV Zofran morning of 04/07 however she has been on a clear liquid diet. She was started on a carb consistent diet and was able to tolerate. She did have some nausea easily contro lled with zofran. She was determined appropriate for discharge back to hospice. She was not having any significant ascities. We discussed that she has been admitted several times for confusion that clears when her long acting morphine is held. We discussed decreasing this medication at home as I believe she is having some build up with her renal and liver failure. She was in agreement, also discussed with hospice who is in agreement. I also anticipate that her nausea will not stay resolved. I have suggested zofran prior to meals and then compazine if zofran is ineffective. New prescriptions sent. Patient discharged to home hospice. I have also decreased her insulin doses and her blood sugars have been low normal while here. Patient seen and examined at bedside. Patient reports some nausea after eating breakfast, howevere she has not requested medications from the nurse. No chest pain, belly pain at baseline, no significant ascities. Vital signs reviewed and stable. General: non toxic, no distress, appears older than stated age Derm: Jaundice, warm, dry Head: atraumatic, normocephalic, symmetric Eyes: EOMI, no lid lag, anicteric sclera Mouth: no lip lesion, mucus membranes moist Cardiovascular: S1S2 reg, no murmur, positive posterior tibial pulse bilateral, Lungs: CTA bilateral, no rhonchi, no rales , no accessory muscle use Abdominal: soft, no distended, +tender to palpation but at her baseline, no guarding, no appreciable organomegaly Ext: no gross muscle atrophy, no edema, no contractures Neuro: CN II-XI grossly intact, no focal neuro deficits Psych: Alert, oriented, appropriate affect A total of 35 minutes of time were spent preparing this complex discharge summary . Patient Condition at Discharge: Fair Plan - Discharge Summary Discharge Rx Participant: No New Discharge Prescriptions: New Prochlorperazine [Compazine] 5 mg PO Q8HR PRN #30 tab PRN Reason: Nausea Insulin Regular [humuLIN R] 4 unit SQ AC-TID vial Benzocaine 20 % Gel [Orajel] 1 gm MM TID PRN #1 tube PRN Reason: Pain Ondansetron Odt [Zofran ODT] 4 mg PO TID #30 tab Morphine Sulfate ER [Ms Contin] 15 mg PO Q12HR 3 Days #6 tab Continue Cholecalciferol [Vitamin D3 (25 Mcg = 1000 Iu)] 4,000 unit PO DAILY Torsemide [Demadex] 20 mg PO DAILY tab Spironolactone [Aldactone] 25 mg PO DAILY Sucralfate [Carafate] 1 gm PO QID PRN #120 tab PRN Reason: GERD Lactulose [Cephulac] 30 gm PO BID Changed Insulin NPH Human Isophane [humuLIN N] 10 unit SQ BID #0 Discontinued Insulin Regular [humuLIN R] 10 unit SQ AC-TID Discharge Medication List Cholecalciferol [Vitamin D3 (25 Mcg = 1000 Iu)] 4,000 unit PO DAILY 01/16/19 [History] Torsemide [Demadex] 20 mg PO DAILY tab 11/21/19 [Rx] Spironolactone [Aldactone] 25 mg PO DAILY 11/25/19 [History] Sucralfate [Carafate] 1 gm PO QID PRN #120 tab 03/26/20 [Rx] Lactulose [Cephulac] 30 gm PO BID 04/06/20 [History] Benzocaine 20 % Gel [Orajel] 1 gm MM TID PRN #1 tube 04/09/20 [Rx] Insulin NPH Human Isophane [humuLIN N] 10 unit SQ BID #0 04/09/20 [Rx] Insulin Regular [humuLIN R] 4 unit SQ AC-TID vial 04/09/20 [Rx] Morphine Sulfate ER [Ms Contin] 15 mg PO Q12HR 3 Days #6 tab 04/09/20 [Rx] Ondansetron Odt [Zofran ODT] 4 mg PO TID #30 tab 04/09/20 [Rx] Prochlorperazine [Compazine] 5 mg PO Q8HR PRN #30 tab 04/09/20 [Rx] Activity/Diet/Wound Care/Special Instructions: Activity: as tolerated Diet: 2 gram sodium and 1.5 L fluid restriction [facility] hospice Discharge Disposition: HOME WITH HOSPICE
[2020-04-09 21:47] VITALS: BP 112/63; PULSE 69; RESP 12; TEMP 98.5
== END 2020-04-09 21:23 | disposition hospice, home (50) | DRG 388 ==
LOC: 5NMEDONC 19:20
PROVIDERS: ADMIT Internal Medicine; ATTEND Internal Medicine
DX: K56.7 Ileus, unspecified (principal); G92 Toxic encephalopathy; C22.0 Liver cell carcinoma; D61.818 Other pancytopenia; R18.8 Other ascites; Z51.5 Encounter for palliative care; I12.9 Hypertensive chronic kidney disease with stage 1 through stage 4 chronic kidney disease, or unspecified chronic kidney disease; I25.2 Old myocardial infarction; K25.9 Gastric ulcer, unspecified as acute or chronic, without hemorrhage or perforation; K57.90 Diverticulosis of intestine, part unspecified, without perforation or abscess without bleeding; G89.29 Other chronic pain; K72.10 Chronic hepatic failure without coma; F41.9 Anxiety disorder, unspecified; F32.9 Major depressive disorder, single episode, unspecified; N18.3 Chronic kidney disease, stage 3 (moderate); E11.22 Type 2 diabetes mellitus with diabetic chronic kidney disease; E11.65 Type 2 diabetes mellitus with hyperglycemia; Z93.3 Colostomy status; K74.69 Other cirrhosis of liver; Z79.4 Long term (current) use of insulin; Z79.899 Other long term (current) drug therapy; Z82.49 Family history of ischemic heart disease and other diseases of the circulatory system; Z87.11 Personal history of peptic ulcer disease; Z87.891 Personal history of nicotine dependence; Z90.710 Acquired absence of both cervix and uterus; Z92.21 Personal history of antineoplastic chemotherapy; Z88.5 Allergy status to narcotic agent; Z88.0 Allergy status to penicillin; Z88.8 Allergy status to other drugs, medicaments and biological substances
CPT/HCPCS: 74018; 82140

== ENCOUNTER 2020-04-20 13:43 | Inpatient (IN) | payer MEDICAID, OTHER ==
[2020-04-20] MEDS ORDERED: NALOXONE 0.4 MG/ML 1 ML VIAL IV PRN (15:20)
[2020-04-20] MEDS ORDERED: SUCRALFATE 1 GM TAB PO PRN (15:32)
[2020-04-20] MEDS ORDERED: BENZOCAINE 20 % GEL 15 GM TUBE MM PRN (15:32)
[2020-04-20] MEDS ORDERED: PROCHLORPERAZINE 5 MG TAB PO PRN (15:32)
[2020-04-20 16:37] LABS: Basophils % (A) 1 %; Eosinophils # (A) 0.2 k/uL (0-0.7); Eosinophils % (A) 4 %; HCT 34.2 % (34.0-46.0); HGB 11.3 gm/dL (11.4-16.0); Lymphocytes # (A) 0.7 k/uL (1.0-4.8); Lymphocytes % (A) 17 %; MCH 36.1 pg (25.0-35.0); MCHC 33.1 g/dL (31.0-37.0); MCV 109.1 fL (80.0-100.0); Macrocytosis Marked; Mean Platelet Volume 11.1; Monocytes # (A) 0.4 k/uL (0-1.0); Monocytes % (A) 8 %; Neutrophils # (A) 3.1 k/uL (1.3-7.7); Neutrophils % (A) 69 %; RBC 3.14 m/uL (3.80-5.40); RDW 15.2 % (11.5-15.5); WBC 4.5 k/uL (3.8-10.6)
[2020-04-20 16:38] LABS: Platelet Count 85 k/uL (150-450)
[2020-04-20 16:50] LABS: Albumin 2.2 g/dL (3.5-5.0); Calcium 8.2 mg/dL (8.4-10.2); Potassium 3.7 mmol/L (3.5-5.1); Total Bilirubin 2.5 mg/dL (0.2-1.3); Total Protein 5.8 g/dL (6.3-8.2)
[2020-04-20 17:06] LABS: Glucose,Whole Blood 87 mg/dL (75-99)
--- NOTE | 2020-04-20 17:29 | HP ---
HISTORY AND PHYSICAL DATE OF SERVICE: 04/20/2020 CHIEF COMPLAINT: Change in mental status and weakness. HISTORY OF PRESENT ILLNESS: This 74-year-old woman with a past medical history of multiple medical problems including cirrhosis of the liver and hepatocellular carcinoma, was recently transitioned to hospice and apparently at home the daughter in law and the son who is living with the patient noted some change in mental status and complaints of weakness and the patient was directed to hospital on by the hospice who contacted Dr. Gaitan my colleague. Currently the patient is complaining of weakness and tiredness and the patient being closely monitored. There is no history of trauma. No history of headache, loss conscious or seizures at this time. PAST MEDICAL HISTORY: History of diabetes, hypertension, history of chronic liver disease, myocardial infarction, history of hepatocellular carcinoma, history of appendectomy, bowel resection. MEDICATIONS: Prior to admission include home medications, torsemide 20 mg p.o. daily, Carafate 1 g q.i.d. p.r.n., Aldactone 25 mg daily, Compazine 5 mg q.8 p.r.n., Zofran p.o. t.i.d., MS Contin 50 mg p.o. b.i.d., Cephulac 30 g p.o. b.i.d., Humulin-N 4 mg a.c. t.i.d., Novolin 14 units subcu b.i.d., Vitamin D3 4000 daily, Orajel 1 g t.i.d. p.r.n. ALLERGIES: AMLODIPINE, OXYCONTIN, PENICILLIN, DILAUDID, GREG INHIBITORS. PHYSICAL EXAM: Patient is alert, oriented x3. Pulse 57, blood pressure 116/60, respiration 12, temperature 97.7, pulse ox 98% on room air. HEENT: Conjunctivae normal. NECK: No JVD. CARDIOVASCULAR: S1, S2 muffled. RESPIRATIONS: Breath sounds diminished in the bases. A few scattered rhonchi. ABDOMEN: Soft. Mild diffuse distention. Mild ascites present. LEGS: No edema. No swelling. NERVOUS SYSTEM: Higher functions as mentioned earlier. Moves all 4 limbs. No focal motor or sensory deficits. Diffusely weak. LYMPHATICS: No lymph nodes palpable in the neck, axillae or groin. SKIN: No ulcer, no rash or bleeding. JOINTS: No active deforming arthropathy. LABS: Current labs are not available. Previous labs reviewed. ASSESSMENT: 1. Change in mental status, metabolic encephalopathy, multifactorial. 2. Possible acute hepatic encephalopathy. 3. History of cirrhosis of the liver. 4. History of hepatocellular carcinoma. 5. Diabetes mellitus type 2. 6. Hypertension. 7. Chronic liver disease. 8. History of myocardial infarction. 9. History of nonalcoholic liver cirrhosis. 10.History of chronic pancytopenia. 11.History of chronic hepatic encephalopathy. 12.History of stomach ulcer. 13.History of nonsustained ventricular tachycardia. 14.History of MRSA. 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 16.History of bowel resection. 17.History of cholecystectomy. 18.History of anxiety, depression. 19.Remote history of nicotine dependence. 20.NO CODE, NO CPR, NO VENT. RECOMMENDATIONS AND DISCUSSION: In this 74-year-old woman who presented with multiple complex medical issues, at this time, I recommend to continue the current medication, continue symptomatic treatment. Otherwise, I would recommend cautious hydration. Other than that, I would recommend PT/OT evaluation. Consider possible ECF rehab. The patient otherwise social Work and case Management to follow up with the hospice details with the patient and family. It seems like the patient might require further family support as per discussion with staff. Overall prognosis guarded. Further recommendations to follow. MMLOUL / DREAN: [id number] /
[2020-04-20] MEDS: LACTULOSE 20 GM/30 ML CUP PO SCH ×2 (18:26→21:08)
[2020-04-20] MEDS: INSULIN ASPART (NovoLOG) 100 UNIT/ML VIAL SQ SCH ×2 (18:26→21:07)
[2020-04-20] MEDS: INSULIN REGULAR 100 UNIT/ML VIAL SQ SCH (18:27)
[2020-04-20] MEDS: ONDANSETRON ODT 4 MG TAB PO SCH ×2 (18:27→21:07)
[2020-04-20 20:36] LABS: Glucose,Whole Blood 190 mg/dL (75-99)
[2020-04-20] MEDS: MORPHINE SULFATE IR 15 MG TABLET PO PRN (21:06)
[2020-04-20] MEDS: INSULIN NPH 300 UNIT/3 ML VIAL SQ SCH (21:10)
[2020-04-21] MEDS: SODIUM CHLORIDE 0.9% 1,000 ML IV SCH ×2 (00:36→17:32)
[2020-04-21] MEDS: MORPHINE SULFATE IR 15 MG TABLET PO PRN ×4 (01:16→21:48)
[2020-04-21 06:33] LABS: Basophils % (A) 1 %; Eosinophils # (A) 0.2 k/uL (0-0.7); Eosinophils % (A) 5 %; HCT 34.4 % (34.0-46.0); HGB 11.5 gm/dL (11.4-16.0); Lymphocytes # (A) 0.9 k/uL (1.0-4.8); Lymphocytes % (A) 19 %; MCH 36.2 pg (25.0-35.0); MCHC 33.4 g/dL (31.0-37.0); MCV 108.3 fL (80.0-100.0); Macrocytosis Marked; Mean Platelet Volume 10.1; Monocytes # (A) 0.3 k/uL (0-1.0); Monocytes % (A) 6 %; Neutrophils % (A) 66 %; RBC 3.18 m/uL (3.80-5.40); RDW 14.9 % (11.5-15.5); WBC 4.5 k/uL (3.8-10.6)
[2020-04-21 06:34] LABS: Platelet Count 97 k/uL (150-450)
[2020-04-21 06:49] LABS: Calcium 8.1 mg/dL (8.4-10.2); Potassium 3.9 mmol/L (3.5-5.1)
[2020-04-21 07:08] LABS: Glucose,Whole Blood 98 mg/dL (75-99)
[2020-04-21] MEDS: INSULIN ASPART (NovoLOG) 100 UNIT/ML VIAL SQ SCH ×4 (08:02→21:47)
[2020-04-21] MEDS: LACTULOSE 20 GM/30 ML CUP PO SCH ×3 (08:04→21:58)
[2020-04-21] MEDS: CHOLECALCIFEROL 1,000 UNIT TAB PO SCH (08:05)
[2020-04-21] MEDS: SPIRONOLACTONE 25 MG TAB PO SCH (08:06)
[2020-04-21] MEDS: INSULIN REGULAR 100 UNIT/ML VIAL SQ SCH ×3 (08:10→17:32)
[2020-04-21] MEDS: INSULIN NPH 300 UNIT/3 ML VIAL SQ SCH ×2 (08:11→21:58)
[2020-04-21] MEDS: ONDANSETRON ODT 4 MG TAB PO SCH ×3 (08:12→21:47)
[2020-04-21] MEDS ORDERED: TORSEMIDE 20 MG TAB PO SCH (09:00)
[2020-04-21 11:31] LABS: Glucose,Whole Blood 204 mg/dL (75-99)
--- NOTE | 2020-04-21 17:08 | PN ---
PROGRESS NOTE DATE OF SERVICE: 04/21/2020 HISTORY OF PRESENT ILLNESS: This 74-year-old woman was admitted with change in mental status and weakness, had history of cirrhosis of the liver and as well as hepatocellular carcinoma. The patient was apparently on hospice, but the family called the hospice team and the patient directly admitted to [facility] at this time. Currently the patient is slightly better, but however, the patient is insisting on going back home. The possibility of rehab or rehab followed by comfort measures also being considered at this time. PAST MEDICAL HISTORY: Reviewed. REVIEW OF SYSTEMS: Cardiovascular: No angina, palpitations. Respiratory: As mentioned earlier. GI: As mentioned earlier. no dysuria. Nervous systems: No numbness or weakness. CURRENT MEDICATIONS: Reviewed and include: 1. Orajel p.r.n. 2. Vitamin D3. 3. NovoLog. 4. Humulin-N. 6. Cephulac. 7. MS-IR. 8. Narcan. 9. Zofran. 10.Aldactone. 11.Carafate. 12.Doses reviewed. PHYSICAL EXAM: Patient is alert, oriented x2. Pulse 64. Blood pressure 127/69, respiration 18, temperature 98.2, pulse ox 98% on room air. HEENT: Conjunctivae normal. Oral mucosa moist. NECK is no jugular venous distention. No carotid bruit. No lymph node enlargement. CARDIOVASCULAR systems: S1, S2 muffled. RESPIRATION: Breath sounds diminished in the bases. No rhonchi. No crackles. ABDOMEN: Soft, ascites present. LEGS no edema no edema. No swelling. NERVOUS SYSTEM: No focal deficits. LABS: WBC 4.2, hemoglobin 11.5, creatinine 0.95. ASSESSMENT: 1. Change in mental status acute metabolic encephalopathy, multifactorial. 2. Possible acute hepatic encephalopathy present on admission. 3. History of cirrhosis liver. 4. History of hepatocellular carcinoma. 5. Diabetes type 2. 6. Hypertension. 7. Chronic liver disease. 8. Acute renal failure with acute tubular necrosis and prerenal factors. 9. History of nonalcoholic liver cirrhosis. 10.Chronic pancytopenia. 11.History of chronic hepatic encephalopathy. 12.History of stomach ulcer. 13.History of nonsustained ventricular tachycardia. 14.History of MRSA. 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 16.History of bowel resection. 17.History of cholecystectomy. 18.History of anxiety, depression. 19.Remote history of nicotine dependence. 20.NO CODE, NO CPR, NO VENT. RECOMMENDATIONS AND DISCUSSION: In this 74-year-old woman who presented with multiple complex medical issues, at this time I would recommend continue the current management and I would recommend continue with p.o. hydration. Hold diuretics. Otherwise continue the rest of medications. I would also recommend PT/OT evaluation. emu farm worker and case management to discuss with family regarding the discharge options which could be a safe and long- lasting. Prognosis guarded. Further recommendations to follow. MMLOUL / IJN: [id number] / MTDD
[2020-04-21 17:16] LABS: Glucose,Whole Blood 193 mg/dL (75-99)
[2020-04-21 19:57] LABS: Glucose,Whole Blood 146 mg/dL (75-99)
[2020-04-22] MEDS: MORPHINE SULFATE IR 15 MG TABLET PO PRN ×3 (03:47→20:39)
[2020-04-22 06:37] LABS: Basophils % (A) 1 %; Eosinophils # (A) 0.2 k/uL (0-0.7); Eosinophils % (A) 5 %; HCT 33.1 % (34.0-46.0); HGB 10.9 gm/dL (11.4-16.0); Hypochromasia Slight; Lymphocytes % (A) 20 %; MCH 36.1 pg (25.0-35.0); MCHC 32.9 g/dL (31.0-37.0); MCV 109.7 fL (80.0-100.0); Mean Platelet Volume 9.6; Monocytes # (A) 0.3 k/uL (0-1.0); Monocytes % (A) 7 %; Neutrophils # (A) 3.1 k/uL (1.3-7.7); Neutrophils % (A) 65 %; RBC 3.02 m/uL (3.80-5.40); RDW 14.8 % (11.5-15.5); WBC 4.8 k/uL (3.8-10.6)
[2020-04-22 06:42] LABS: Macrocytosis Marked; Platelet Count 87 k/uL (150-450)
[2020-04-22 06:50] LABS: Calcium 7.9 mg/dL (8.4-10.2)
[2020-04-22 06:51] LABS: Potassium 4.4 mmol/L (3.5-5.1)
[2020-04-22 07:10] LABS: Glucose,Whole Blood 100 mg/dL (75-99)
[2020-04-22] MEDS: INSULIN ASPART (NovoLOG) 100 UNIT/ML VIAL SQ SCH ×4 (09:37→20:39)
[2020-04-22] MEDS: INSULIN NPH 300 UNIT/3 ML VIAL SQ SCH ×2 (09:38→20:40)
[2020-04-22] MEDS: LACTULOSE 20 GM/30 ML CUP PO SCH ×3 (10:09→20:39)
[2020-04-22] MEDS: SPIRONOLACTONE 25 MG TAB PO SCH (10:09)
[2020-04-22] MEDS: ONDANSETRON ODT 4 MG TAB PO SCH ×3 (10:09→20:39)
[2020-04-22] MEDS: CHOLECALCIFEROL 1,000 UNIT TAB PO SCH (10:10)
[2020-04-22] MEDS: INSULIN REGULAR 100 UNIT/ML VIAL SQ SCH ×3 (10:16→18:21)
[2020-04-22 11:18] LABS: Glucose,Whole Blood 298 mg/dL (75-99)
[2020-04-22] MEDS ORDERED: HYDROmorphone 0.5 MG/0.5 ML SYRINGE IVP PRN (11:28)
[2020-04-22] MEDS: MORPHINE SULFATE 4 MG/ML SYRINGE IVP PRN ×3 (12:24→22:51)
--- NOTE | 2020-04-22 13:26 | US ---
EXAMINATION TYPE: US abdomen limited DATE OF EXAM: 04/22/2020 COMPARISON: US 03/25/2020, paracentesis CLINICAL HISTORY: possible para to check for fluid L side. Check for ascites TECHNIQUE/FINDINGS: Targeted grayscale imaging was performed of the abdomen and evaluation for ascite s only.Moderate amount of ascites throughout ABD IMPRESSION: Moderate abdominal ascites in the visualized abdomen.
[2020-04-22 13:58] LABS: INR 1.4 (<1.2); Prothrombin Time 13.9 sec (9.0-12.0)
--- NOTE | 2020-04-22 14:44 | P.PN ---
Subjective Progress Note Date: 04/22/20 Principal diagnosis: This is a 74-year-old female who was recently admitted with a change in mental status, weakness, and also has history of cirrhosis of the liver as well as hepatocellular carcinoma and is being closely monitored. Patient was on hospice and hospice was reconsulted and is pending at this time. PT/OT to evaluate the patient for possible ECF in case management and high school social studies teacher also consulted as per nursing staff, family feels they are unable to care for her at home at this time. [facility] is following. Currently no reports of chest pain, shortness of breath, or palpitations. Patient is afebrile. No reports of nausea or vomiting and patient is tolerating diet. Objective - Vital Signs Vital signs: Vital Signs Temp 98.9 F 04/22/20 05:00 Pulse 68 04/22/20 08:00 Resp 18 04/22/20 08:00 BP 115/68 04/22/20 05:00 Pulse Ox 98 04/22/20 05:00 Intake & Output 04/21/20 04/22/20 04/22/20 18:59 06:59 18:59 Intake Total 680 Output Total 400 400 400 Balance -400 280 -400 Intake: Intake, IV Titration 80 Amount Sodium Chloride 0.9% 1, 80 000 ml @ 20 mls/hr IV . Q24H [facility] Rx#:[id number] Oral 600 Output: Stool 400 400 400 Other: Voiding Method Bedside Commode Bedside Commode Bedside Commode # Voids 5 2 # Bowel Movements 3 2 - Exam Gen: This is a 74-year-old female sitting up in the chair, awake, alert and oriented 2. Well-developed, well-nourished. Temp is 98.8F, pulse is 61, respirations are 16, blood pressure is 134/66, oxygen saturation is 100% on room air. HEENT: Head is atraumatic, normocephalic. Pupils equal, round. Sclerae is anicteric. NECK: Supple. No JVD. No lymphadenopathy. No thyromegaly. LUNGS: Diminished breath sounds at the bases with no wheezing or rhonchi noted. No intercostal retractions. HEART: S1, S2 are muffled ABDOMEN: Soft. Abdominal distention noted. Bowel sounds are present. No masses. No tenderness. EXTREMITIES: No pedal edema. No calf tenderness. NEUROLOGICAL: Patient is awake, alert and oriented x2. Cranial nerves 2 through 12 are grossly intact. - Labs CBC & Chem 7: 04/22/20 05:59 04/22/20 05:59 Labs: Abnormal Lab Results - Last 24 Hours (Table) 04/21/20 04/21/20 04/22/20 Range/Units 17:15 19:55 05:59 RBC 3.02 L (3.80-5.40) m/uL Hgb 10.9 L (11.4-16.0) gm/dL Hct 33.1 L (34.0-46.0) % MCV 109.7 H (80.0-100.0) fL MCH 36.1 H (25.0-35.0) pg Plt Count 87 L (150-450) k/uL Macrocytosis Marked A Sodium (137-145) mmol/L Chloride (98-107) mmol/L Carbon Dioxide (22-30) mmol/L BUN (7-17) mg/dL Glucose (74-99) mg/dL POC Glucose (mg/dL) 193 H 146 H (75-99) mg/dL Calcium (8.4-10.2) mg/dL 04/22/20 04/22/20 04/22/20 Range/Units 05:59 07:08 11:08 RBC (3.80-5.40) m/uL Hgb (11.4-16.0) gm/dL Hct (34.0-46.0) % MCV (80.0-100.0) fL MCH (25.0-35.0) pg Plt Count (150-450) k/uL Macrocytosis Sodium 136 L (137-145) mmol/L Chloride 114 H (98-107) mmol/L Carbon Dioxide 20 L (22-30) mmol/L BUN 21 H (7-17) mg/dL Glucose 105 H (74-99) mg/dL POC Glucose (mg/dL) 100 H 298 H (75-99) mg/dL Calcium 7.9 L (8.4-10.2) mg/dL Assessment and Plan Assessment: Change in mental status acute metabolic encephalopathy, multifactorial Possible acute hepatic encephalopathy, present on admission History of cirrhosis of the liver History of hepatocellular carcinoma diabetes mellitus type 2 Hypertension Chronic liver disease acute renal failure with acute tubular necrosis and prerenal factors History of nonalcoholic liver cirrhosis Chronic pancytopenia History of chronic hepatic encephalopathy History of stomach ulcer history of nonsustained ventricular tachycardia history of MRSA/VRE History of bowel resection History of cholecystectomy History of anxiety, depression next line remote history of nicotine dependence No code, no CPR, no vent Recommendations and discussion: Recommend continue current medications, management, and symptomatic treatment. PT/OT to evaluate the patient. Patient had an abdominal ultrasound to verify ascites and interventional radiology consulted for paracentesis. Case management and social work consulted for possible rehab placement if family feels they are unable to take care of her. Possible ECF placement. [facility] hospice following. Due to multiple complex medical issues, prognosis is guarded. Further recommendations to follow.
[2020-04-22 17:20] LABS: Glucose,Whole Blood 131 mg/dL (75-99)
[2020-04-22] MEDS: SODIUM CHLORIDE 0.9% 1,000 ML IV SCH (18:21)
[2020-04-22 20:17] LABS: Glucose,Whole Blood 219 mg/dL (75-99)
[2020-04-23] MEDS: MORPHINE SULFATE IR 15 MG TABLET PO PRN ×2 (02:31→19:33)
[2020-04-23] MEDS: MORPHINE SULFATE 4 MG/ML SYRINGE IVP PRN ×3 (06:32→18:34)
[2020-04-23 06:58] LABS: Glucose,Whole Blood 123 mg/dL (75-99)
[2020-04-23 07:58] LABS: Calcium 7.6 mg/dL (8.4-10.2); Potassium 4.8 mmol/L (3.5-5.1)
--- NOTE | 2020-04-23 08:00 | US ---
Ultrasound-guided paracentesis. DATE OF EXAM: 04/22/2020 CLINICAL HISTORY: Ascites The procedure was discussed with the patient. The risks, complications, benefits, and alternatives we re discussed and any questions were answered. Informed consent was obtained. The patient was placed s upine on the ultrasound table and prepped and draped in the usual sterile fashion. All elements of maximal barrier technique were utilized. Under ultrasound guidance, access into the right lower quadrant was obtained, via the paracentesis catheter system and direct ultrasound guidanc e. Approximately 5 liters of straw-colored fluid was removed. The patient was stable throughout the proc edure and remained stable upon discharge from Department of Radiology. IMPRESSION: Successful paracentesis under ultrasound guidance.
[2020-04-23] MEDS: INSULIN ASPART (NovoLOG) 100 UNIT/ML VIAL SQ SCH ×4 (08:21→20:48)
[2020-04-23 08:48] LABS: Basophils % (A) 1 %; Eosinophils # (A) 0.3 k/uL (0-0.7); Eosinophils % (A) 5 %; HCT 34.2 % (34.0-46.0); HGB 10.8 gm/dL (11.4-16.0); Hypochromasia Slight; Lymphocytes # (A) 0.9 k/uL (1.0-4.8); Lymphocytes % (A) 18 %; MCH 34.6 pg (25.0-35.0); MCHC 31.6 g/dL (31.0-37.0); MCV 109.4 fL (80.0-100.0); Macrocytosis Marked; Mean Platelet Volume 10.4; Monocytes # (A) 0.4 k/uL (0-1.0); Monocytes % (A) 8 %; Neutrophils # (A) 3.3 k/uL (1.3-7.7); Neutrophils % (A) 66 %; RBC 3.13 m/uL (3.80-5.40); RDW 14.5 % (11.5-15.5)
[2020-04-23 08:51] LABS: Platelet Count 89 k/uL (150-450)
[2020-04-23] MEDS: INSULIN NPH 300 UNIT/3 ML VIAL SQ SCH ×2 (10:06→20:50)
[2020-04-23] MEDS: INSULIN REGULAR 100 UNIT/ML VIAL SQ SCH ×3 (10:06→13:05)
[2020-04-23] MEDS: ONDANSETRON ODT 4 MG TAB PO SCH ×4 (10:07→20:49)
[2020-04-23] MEDS: CHOLECALCIFEROL 1,000 UNIT TAB PO SCH (10:07)
[2020-04-23] MEDS: SPIRONOLACTONE 25 MG TAB PO SCH (10:07)
[2020-04-23] MEDS: LACTULOSE 20 GM/30 ML CUP PO SCH ×3 (10:07→20:48)
[2020-04-23 11:32] LABS: Glucose,Whole Blood 211 mg/dL (75-99)
[2020-04-23 12:04] LABS: Anisocytosis (M) Present
--- NOTE | 2020-04-23 13:43 | P.PN ---
Subjective Progress Note Date: 04/23/20 Principal diagnosis: This is a 74-year-old female who was recently admitted with a change in mental status, weakness, and also has history of cirrhosis of the liver as well as hepatocellular carcinoma and is being closely monitored. Patient was on hospice and hospice was reconsulted and is pending at this time. PT/OT to evaluate the patient for possible ECF in case management and long term care social worker also consulted as per nursing staff, family feels they are unable to care for her at home at this time. [facility] is following. Currently no reports of chest pain, shortness of breath, or palpitations. Patient is afebrile. No reports of nausea or vomiting and patient is tolerating diet. 04/23/2020 Patient is seen and evaluated in follow-up today and is currently active and hospice with [facility]. [facility] is working on possible placement at an ECF to continue with hospice in the outpatient setting. Patient underwent paracentesis yesterday with approximately 5 L removed and states her abdominal discomfort has improved. Currently patient denies any nausea or vomiting and is tolerating diet. No reports of chest pain, shortness of breath, or palpit ations. Patient is afebrile. Case management and social work following. Objective - Vital Signs Vital signs: Vital Signs Temp 99.2 F 04/23/20 11:21 Pulse 61 04/23/20 11:21 Resp 16 04/23/20 11:21 BP 107/58 04/23/20 11:21 Pulse Ox 97 04/23/20 11:21 Intake & Output 04/22/20 04/23/20 04/23/20 18:59 06:59 18:59 Intake Total 280 160 Output Total 1200 800 Balance -920 -640 Intake: Intake, IV Titration 120 160 Amount Sodium Chloride 0.9% 1, 120 160 000 ml @ 20 mls/hr IV . Q24H [facility] Rx#:[id number] Oral 160 Output: Stool 1200 800 Other: Voiding Method Bedside Commode Bedside Commode Bedside Commode # Voids 2 1 1 # Bowel Movements 1 1 - Exam Gen: This is a 74-year-old female sitting up in the chair, awake, alert and oriented 2. Well-developed, well-nourished. HEENT: Head is atraumatic, normocephalic. Pupils equal, round. Sclerae is anicteric. NECK: Supple. No JVD. No lymphadenopathy. No thyromegaly. LUNGS: Diminished breath sounds at the bases with no wheezing or rhonchi noted. No intercostal retractions. HEART: S1, S2 are muffled ABDOMEN: Soft. Abdominal distention noted. Bowel sounds are present. No masses. No tenderness. EXTREMITIES: No pedal edema. No calf tenderness. NEUROLOGICAL: Patient is awake, alert and oriented x2. Cranial nerves 2 through 12 are grossly intact. - Labs CBC & Chem 7: 04/23/20 07:01 04/23/20 07:01 Labs: Abnormal Lab Results - Last 24 Hours (Table) 04/22/20 04/22/20 04/22/20 Range/Units 13:24 17:18 20:16 RBC (3.80-5.40) m/uL Hgb (11.4-16.0) gm/dL MCV (80.0-100.0) fL Plt Count (150-450) k/uL Lymphocytes # (1.0-4.8) k/uL Macrocytosis PT 13.9 H (9.0-12.0) sec INR 1.4 H (<1.2) Sodium (137-145) mmol/L Chloride (98-107) mmol/L Carbon Dioxide (22-30) mmol/L BUN (7-17) mg/dL Glucose (74-99) mg/dL POC Glucose (mg/dL) 131 H 219 H (75-99) mg/dL Calcium (8.4-10.2) mg/dL 04/23/20 04/23/20 04/23/20 Range/Units 06:54 07:01 07:01 RBC 3.13 L (3.80-5.40) m/uL Hgb 10.8 L (11.4-16.0) gm/dL MCV 109.4 H (80.0-100.0) fL Plt Count 89 L (150-450) k/uL Lymphocytes # 0.9 L (1.0-4.8) k/uL Macrocytosis Marked A PT (9.0-12.0) sec INR (<1.2) Sodium 133 L (137-145) mmol/L Chloride 111 H (98-107) mmol/L Carbon Dioxide 20 L (22-30) mmol/L BUN 18 H (7-17) mg/dL Glucose 133 H (74-99) mg/dL POC Glucose (mg/dL) 123 H (75-99) mg/dL Calcium 7.6 L (8.4-10.2) mg/dL 04/23/20 Range/Units 11:30 RBC (3.80-5.40) m/uL Hgb (11.4-16.0) gm/dL MCV (80.0-100.0) fL Plt Count (150-450) k/uL Lymphocytes # (1.0-4.8) k/uL Macrocytosis PT (9.0-12.0) sec INR (<1.2) Sodium (137-145) mmol/L Chloride (98-107) mmol/L Carbon Dioxide (22-30) mmol/L BUN (7-17) mg/dL Glucose (74-99) mg/dL POC Glucose (mg/dL) 211 H (75-99) mg/dL Calcium (8.4-10.2) mg/dL Assessment and Plan Assessment: Change in mental status acute metabolic encephalopathy, multifactorial Possible acute hepatic encephalopathy, present on admission History of cirrhosis of the liver History of hepatocellular carcinoma diabetes mellitus type 2 Hypertension Chronic liver disease acute renal failure with acute tubular necrosis and prerenal factors History of nonalcoholic liver cirrhosis Chronic pancytopenia History of chronic hepatic encephalopathy History of stomach ulcer history of nonsustained ventricular tachycardia history of MRSA/VRE History of bowel resection History of cholecystectomy History of anxiety, depression next line remote history of nicotine dependence No code, no CPR, no vent Recommendations and discussion: Recommend continue current medications, management, and symptomatic treatment. PT/OT evaluated the patient recommending subacute rehab to increase strength. Patient underwent paracentesis with removal approximately 5 L of ascites. Case management and social work consulted for possible rehab placement as family feels they are unable to take care of her. Possible ECF placement with continued hospice services. [facility] hospice following. [facility] hospice working on placement at this time. Due to multiple complex medical issues, prognosis is guarded. Further recommendations to follow. Possible discharge in 24-48 hours.
--- NOTE | 2020-04-23 14:20 | P.DS ---
Providers Date of admission: 04/20/20 15:18 Expected date of discharge: 04/23/20 Attending physician: Taina Gaitan Primary care physician: Stated None Hospital Course: Final diagnosis Change in mental status acute metabolic encephalopathy, multifactorial Possible acute hepatic encephalopathy, present on admission History of cirrhosis of the liver History of hepatocellular carcinoma diabetes mellitus type 2 Hypertension Chronic liver disease acute renal failure with acute tubular necrosis and prerenal factors History of nonalcoholic liver cirrhosis Chronic pancytopenia History of chronic hepatic encephalopathy History of stomach ulcer history of nonsustained ventricular tachycardia history of MRSA/VRE History of bowel resection History of cholecystectomy History of anxiety, depression remote history of nicotine dependence No code, no CPR, no vent Discharge disposition Patient is being discharged in a stable condition with guarded prognosis to [facility] and will continue with [facility]. Total time taken is 35 minutes. History of present illness This is a 74-year-old female who was recently admitted with a change in mental status, weakness, also history of cirrhosis of the liver as well as hepatoc ellular carcinoma and was being closely monitored. Patient was on hospice and will continue with [facility] hospice at the [facility]. Patient received a paracentesis for palliative treatment with approximately 5 L removed. Patient continues to have some abdominal discomfort but denies any nausea or vomiting and is tolerating diet. Family feels they are unable to care for her at home and will be going to [facility] for continued PT/OT therapy and strength and mobility and will continue with hospice services. No reports of chest pain, shortness of breath, or palpitations. Patient is afebrile. No reports of nausea or vomiting and patient is tolerating diet. On exam vital signs are stable. Temp is 99.2F, pulse is 61, respirations are 16, blood pressure is 107/58, oxygen saturation is 97% on room air. Cardio S1, S2 are present. Respiratory shows diminished breath sounds with no wheezing or rhonchi noted. Abdomen is soft, slightly distended, nontender. Nervous system shows diffuse weakness. Please refer to medication reconciliation sheet for a list of medications. Patient Condition at Discharge: Stable Plan - Discharge Summary Discharge Rx Participant: No New Discharge Prescriptions: New INSULIN ASPART (NovoLOG) [NovoLOG (formulary)] 0 unit SQ ACHS vial Continue Cholecalciferol [Vitamin D3 (25 Mcg = 1000 Iu)] 4,000 unit PO DAILY Spironolactone [Aldactone] 25 mg PO DAILY Sucralfate [Carafate] 1 gm PO QID PRN #120 tab PRN Reason: GERD Lactulose [Cephulac] 30 gm PO BID Prochlorperazine [Compazine] 5 mg PO Q8HR PRN #30 tab PRN Reason: Nausea Insulin Regular [humuLIN R] 4 unit SQ AC-TID vial Benzocaine 20 % Gel [Orajel] 1 gm MM TID PRN #1 tube PRN Reason: Pain Ondansetron Odt [Zofran ODT] 4 mg PO TID #30 tab Insulin NPH Human Isophane [humuLIN N] 10 unit SQ BID #0 Morphine Sulfate ER [Ms Contin] 15 mg PO Q12HR 3 Days #6 tab Discontinued Torsemide [Demadex] 20 mg PO DAILY tab Discharge Medication List Cholecalciferol [Vitamin D3 (25 Mcg = 1000 Iu)] 4,000 unit PO DAILY 01/16/19 [History] Spironolactone [Aldactone] 25 mg PO DAILY 11/25/19 [History] Sucralfate [Carafate] 1 gm PO QID PRN #120 tab 03/26/20 [Rx] Lactulose [Cephulac] 30 gm PO BID 04/06/20 [History] Benzocaine 20 % Gel [Orajel] 1 gm MM TID PRN #1 tube 04/09/20 [Rx] Insulin NPH Human Isophane [humuLIN N] 10 unit SQ BID #0 04/09/20 [Rx] Insulin Regular [humuLIN R] 4 unit SQ AC-TID vial 04/09/20 [Rx] Ondansetron Odt [Zofran ODT] 4 mg PO TID #30 tab 04/09/20 [Rx] Prochlorperazine [Compazine] 5 mg PO Q8HR PRN #30 tab 04/09/20 [Rx] INSULIN ASPART (NovoLOG) [NovoLOG (formulary)] 0 unit SQ ACHS vial 04/23/20 [Rx] Morphine Sulfate ER [Ms Contin] 15 mg PO Q12HR 3 Days #6 tab 04/23/20 [Rx] Activity/Diet/Wound Care/Special Instructions: [facility] Continue with [facility] hospice Continue current diet Continue monitoring blood sugars before meals and treat accordingly with sliding scale Discharge Disposition: TRANSFER TO SNF/ECF
[2020-04-23 16:50] LABS: Glucose,Whole Blood 171 mg/dL (75-99)
[2020-04-23] MEDS: SODIUM CHLORIDE 0.9% 1,000 ML IV SCH (18:31)
[2020-04-23] MEDS ORDERED: FLUCONAZOLE 100 MG TAB PO ONE (19:45)
[2020-04-23 20:15] LABS: Glucose,Whole Blood 171 mg/dL (75-99)
[2020-04-23] MEDS: PHENAZOPYRIDINE 100 MG TAB PO SCH (20:49)
[2020-04-23 21:57] LABS: Appearance,Urine Cloudy (Clear); Bacteria,Urine Many /hpf; Bilirubin,Urine 1+ (Negative); Blood,Urine Negative (Negative); Color,Urine Yellow; Glucose,Urine (UA) Negative (Negative); Ketones,Urine Negative (Negative); Leukocyte Esterase,Urine Small (Negative); Mucus,Urine Rare /hpf; Nitrite,Urine Positive (Negative); PH, Urine 5.5 (5.0-8.0); Protein,Urine Negative (Negative); RBC,Urine 2 /hpf (0-5); Specific Gravity,Urine 1.018 (1.001-1.035); Squamous Epithelial Cell,Urine 20 /hpf (0-4); Urobilinogen,Urine <2.0 mg/dL (<2.0); WBC,Urine 11 /hpf (0-5)
[2020-04-24] MEDS: MORPHINE SULFATE 4 MG/ML SYRINGE IVP PRN ×2 (02:19→09:28)
[2020-04-24 05:40] VITALS: BP 108/59; PULSE 65; RESP 12; TEMP 98.5
[2020-04-24 07:14] LABS: Glucose,Whole Blood 99 mg/dL (75-99)
[2020-04-24] MEDS: INSULIN ASPART (NovoLOG) 100 UNIT/ML VIAL SQ SCH ×3 (07:22→17:58)
[2020-04-24] MEDS: LACTULOSE 20 GM/30 ML CUP PO SCH ×2 (08:12→16:26)
[2020-04-24] MEDS: CHOLECALCIFEROL 1,000 UNIT TAB PO SCH (08:12)
[2020-04-24] MEDS: MORPHINE SULFATE IR 15 MG TABLET PO PRN ×2 (08:13→16:25)
[2020-04-24] MEDS: PHENAZOPYRIDINE 100 MG TAB PO SCH ×2 (08:14→16:26)
[2020-04-24] MEDS: SPIRONOLACTONE 25 MG TAB PO SCH (08:15)
[2020-04-24] MEDS: INSULIN NPH 300 UNIT/3 ML VIAL SQ SCH (08:15)
[2020-04-24] MEDS: ONDANSETRON ODT 4 MG TAB PO SCH ×2 (08:19→16:25)
[2020-04-24] MEDS: INSULIN REGULAR 100 UNIT/ML VIAL SQ SCH ×3 (08:20→17:58)
[2020-04-24 11:32] LABS: Glucose,Whole Blood 221 mg/dL (75-99)
[2020-04-24] MEDS: SODIUM CHLORIDE 0.9% 1,000 ML IV SCH (16:21)
[2020-04-24 17:13] LABS: Glucose,Whole Blood 145 mg/dL (75-99)
--- NOTE | 2020-04-24 19:06 | P.PN ---
Subjective Progress Note Date: 04/24/20 Principal diagnosis: This is a 74-year-old female who was recently admitted with a change in mental status, weakness, and also has history of cirrhosis of the liver as well as hepatocellular carcinoma and is being closely monitored. Patient was on hospice and hospice was reconsulted and is pending at this time. PT/OT to evaluate the patient for possible ECF in case management and social media director also consulted as per nursing staff, family feels they are unable to care for her at home at this time. [facility] is following. Currently no reports of chest pain, shortness of breath, or palpitations. Patient is afebrile. No reports of nausea or vomiting and patient is tolerating diet. 04/23/2020 Patient is seen and evaluated in follow-up today and is currently active and hospice with [facility]. [facility] is working on possible placement at an ECF to continue with hospice in the outpatient setting. Patient underwent paracentesis yesterday with approximately 5 L removed and states her abdominal discomfort has improved. Currently patient denies any nausea or vomiting and is tolerating diet. No reports of chest pain, shortness of breath, or palpit ations. Patient is afebrile. Case management and social work following. 04/23/2020 Patient is seen in follow up today and was supposed to be going to [facility] and patient refused stating that she is going home. [facility] following and working with social work to find another place that is agreeable to accept patient. This was discussed with family as well and patient is agree able to [facility] or [facility]. Currently patient denies any nausea or vomiting and is tolerating diet. No reports of chest pain, shortness of breath, or palpitations. Patient is afebrile. Patient was having some burning with urination and vaginal discharge and was given a dose of ceftriaxone as there were nitrates in the urine. Patient also given a dose of diflucan. Patient given pyridium as needed. Patient states symptoms have improved. Objective - Vital Signs Vital signs: Vital Signs Temp 98.5 F 04/24/20 04:17 Pulse 65 04/24/20 04:17 Resp 12 04/24/20 04:17 BP 108/59 04/24/20 04:17 Pulse Ox 96 06/10/20 04:17 Intake & Output 04/23/20 04/24/20 04/24/20 18:59 06:59 18:59 Intake Total 180 320 Output Total 1600 Balance -1420 320 Intake: Intake, IV Titration 180 80 Amount Sodium Chloride 0.9% 1, 180 80 000 ml @ 20 mls/hr IV . Q24H [facility] Rx#:[id number] Oral 240 Output: Stool 1600 Other: Voiding Method Bedside Commode Toilet Toilet # Voids 1 3 2 - Exam Gen: This is a 74-year-old female sitting up in the chair, awake, alert and oriented 2. Well-developed, well-nourished. HEENT: Head is atraumatic, normocephalic. Pupils equal, round. Sclerae is anicteric. NECK: Supple. No JVD. No lymphadenopathy. No thyromegaly. LUNGS: Diminished breath sounds at the bases with no wheezing or rhonchi noted. No intercostal retractions. HEART: S1, S2 are muffled ABDOMEN: Soft. Abdominal distention noted. Bowel sounds are present. No masses. No tenderness. EXTREMITIES: No pedal edema. No calf tenderness. NEUROLOGICAL: Patient is awake, alert and oriented x2. Cranial nerves 2 through 12 are grossly intact. - Labs CBC & Chem 7: 04/23/20 07:01 04/23/20 07:01 Labs: Abnormal Lab Results - Last 24 Hours (Table) 04/23/20 04/23/20 04/24/20 Range/Units 20:13 21:30 11:31 POC Glucose (mg/dL) 171 H 221 H (75-99) mg/dL Urine Appearance Cloudy H (Clear) Urine Nitrite Positive H (Negative) Urine Bilirubin 1+ H (Negative) Ur Leukocyte Esterase Small H (Negative) Urine WBC 11 H (0-5) /hpf Ur Squamous Epith Cells 20 H (0-4) /hpf Urine Bacteria Many H (None) /hpf Urine Mucus Rare H (None) /hpf 04/24/20 Range/Units 17:11 POC Glucose (mg/dL) 145 H (75-99) mg/dL Urine Appearance (Clear) Urine Nitrite (Negative) Urine Bilirubin (Negative) Ur Leukocyte Esterase (Negative) Urine WBC (0-5) /hpf Ur Squamous Epith Cells (0-4) /hpf Urine Bacteria (None) /hpf Urine Mucus (None) /hpf Assessment and Plan Assessment: Change in mental status acute metabolic encephalopathy, multifactorial Possible acute hepatic encephalopathy, present on admission acute urinary tract infection, present on admission History of cirrhosis of the liver History of hepatocellular carcinoma diabetes mellitus type 2 Hypertension Chronic liver disease acute renal failure with acute tubular necrosis and prerenal factors History of nonalcoholic liver cirrhosis Chronic pancytopenia History of chronic hepatic encephalopathy History of stomach ulcer history of nonsustained ventricular tachycardia history of MRSA/VRE History of bowel resection History of cholecystectomy History of anxiety, depression next line remote history of nicotine dependence No code, no CPR, no vent Recommendations and discussion: Recommend continue current medications, management, and symptomatic treatment. [facility] hospice following. [facility] working on placement at this time as patient is now refusing [facility]. Due to multiple complex medical issues, prognosis is guarded. Further recommendations to follow. Possible discharge in 24-48 hours.
== END 2020-04-24 19:26 | disposition hospice, home (50) | DRG 441 ==
LOC: 5NMEDONC 15:18
PROVIDERS: ADMIT Internal Medicine; ATTEND Internal Medicine
PROC: 0W9G3ZZ Drainage of Peritoneal Cavity, Percutaneous Approach (ICD-10-PCS; principal; 2020-04-23)
DX: K72.00 Acute and subacute hepatic failure without coma (principal); G93.41 Metabolic encephalopathy; N17.0 Acute kidney failure with tubular necrosis; D61.818 Other pancytopenia; N39.0 Urinary tract infection, site not specified; E11.9 Type 2 diabetes mellitus without complications; I10 Essential (primary) hypertension; K74.60 Unspecified cirrhosis of liver; F32.9 Major depressive disorder, single episode, unspecified; F41.9 Anxiety disorder, unspecified; Z51.5 Encounter for palliative care; Z66 Do not resuscitate; R30.9 Painful micturition, unspecified; Z11.59 Encounter for screening for other viral diseases; I25.2 Old myocardial infarction; Z85.05 Personal history of malignant neoplasm of liver; Z90.49 Acquired absence of other specified parts of digestive tract; Z87.891 Personal history of nicotine dependence; Z87.11 Personal history of peptic ulcer disease; Z88.6 Allergy status to analgesic agent; Z88.5 Allergy status to narcotic agent; Z88.0 Allergy status to penicillin; Z88.8 Allergy status to other drugs, medicaments and biological substances; Z86.14 Personal history of Methicillin resistant Staphylococcus aureus infection
CPT/HCPCS: 49083; 76705; 80048; 80053; 81001; 82140; 85025; 85610

== ENCOUNTER 2020-09-23 12:15 | Day surgery (SDC) | payer MEDICARE, OTHER ==
[2020-09-23 12:41] VITALS: TEMP 98.4
[2020-09-23] MEDS ORDERED: ALBUMIN HUMAN 25% 50 ML in EMPTY BAG 1 BAG IVPB SCH (13:30)
[2020-09-23 13:39] LABS: INR 1.3 (<1.2); Prothrombin Time 13.2 sec (9.0-12.0)
[2020-09-23 14:00] LABS: Platelet Count 74 k/uL (150-450)
[2020-09-23 14:23] VITALS: RESP 16
[2020-09-23 14:25] LABS: Mean Platelet Volume 11.7
[2020-09-23 14:59] VITALS: BP 115/74; PULSE 68
--- NOTE | 2020-09-23 15:27 | US ---
EXAMINATION TYPE: US paracentesis abd w/image DATE OF EXAM: 09/23/2020 COMPARISON: NONE HISTORY: Ascites. PROCEDURE: Maximal barrier technique was utilized. The skin overlying a suitable pocket of fluid was localized with ultrasound and the overlying skin was prepped and draped. Ultrasound was utilized with sterile technique. Lidocaine was used for local anesthesia and a skin jenny made with a scalpel. Catheter was advanced under direct ultrasound guidance into a suitable pocket of fluid and approximately 1.4 liter s of serous fluid were removed. Catheter was withdrawn and hemostasis achieved. There is no immedia te complication; the patient is discharged in stable condition. IMPRESSION: STATUS POST ULTRASOUND GUIDED PARACENTESIS FOR PALLIATION OF ASCITES. THIS PROCEDURE WA S PERFORMED BY THE UNDERSIGNED.
== END 2020-09-23 15:15 | disposition other institution (70) ==
LOC: RADPROMAIN 12:15
PROVIDERS: ATTEND Internal Medicine Gastroenterology
DX: R18.8 Other ascites (principal)
CPT/HCPCS: 36415; 49083; 82565; 82947; 85049; 85610; 88108; 88305